=== PATIENT | male | born 1950 | race Caucasian/White ===

== ENCOUNTER 2023-10-18 14:21 | Outpatient (CLI) | payer MEDICARE, SELFPAY | END 2023-10-18 14:22 | disposition home or self-care (01) | PROVIDERS: PCP Internal Medicine; Visit Provider Internal Medicine | DX: N18.4 Chronic kidney disease, stage 4 (severe) (principal); D63.1 Anemia in chronic kidney disease | CPT/HCPCS: 82607; 82728; 83540 ==

== ENCOUNTER 2023-10-31 09:10 | Outpatient (CLI) | payer MEDICARE, SELFPAY | END 2023-10-31 09:11 | disposition home or self-care (01) | LOC: NFLDREF 12:12 | PROVIDERS: PCP Internal Medicine; Referring Provider Internal Medicine; Visit Provider Internal Medicine Nephrology | DX: N18.4 Chronic kidney disease, stage 4 (severe) (principal); D63.8 Anemia in other chronic diseases classified elsewhere; I10 Essential (primary) hypertension; R06.02 Shortness of breath | CPT/HCPCS: 80069; 82728; 82784; 83520; 83540; 83550; 84155; 84165; 84450; 84460; 86334 ==

== ENCOUNTER 2023-11-02 10:00 | Outpatient (CLI) | payer MEDICARE, SELFPAY | END 2023-11-02 10:01 | disposition home or self-care (01) | LOC: NFLDREF 11-04 07:09 | PROVIDERS: PCP Internal Medicine; Referring Provider Internal Medicine; Visit Provider Internal Medicine Nephrology | DX: N18.4 Chronic kidney disease, stage 4 (severe) (principal) | CPT/HCPCS: 82570; 84156 ==

== ENCOUNTER 2023-11-08 13:48 | Inpatient (IN) | payer MEDICARE, SELFPAY ==
[2023-11-08] VITALS (21 sets, daily range): BP systolic 139–158; BP diastolic 86–94; PULSE 96–108; RESP 18–20; TEMP 36.4–37.2; O2SAT 94–97; BMI 28.1; BMI 29.5
--- NOTE | 2023-11-08 14:47 | ED.GENADULT ---
HPI - General Adult General Date Seen: 11/08/23 Chief complaint: Shortness of Breath/Dyspnea Stated complaint: Dr Villalobos worried abt breath during kidneycheck Time Seen by Provider: 11/08/23 14:35 History of Present Illness HPI narrative: This is a pleasant 73-year-old gentleman accompanied to the ER today by his for. He is referred from the outpatient ultrasound suite for evaluation of shortness of breath, fluid overload with bilateral pleural effusions and ascites on ultrasound. He has a complex past history. He has a history of atrial fibrillation and is on chronic warfarin for that. He has also had aortic stenosis and bicuspid aortic valve so underwent a aortic valve surgery with replacement by mechanical valve done at [facility] in September. He is now on warfarin with a goal between 2.5 and 3.5. INR is have recently been in the therapeutic stone, 3.6, than 3.2. He also had a bypass surgery done during his open heart surgery and an ablation for his AFib all during the same procedure in September at [place]. He also has chronic kidney disease. It sounds like his baseline creatinine is about 1.6 and was up to about 2.3 in the hospital at [facility]. Recently is 2.0 in clinic. He also has a history of hyperlipidemia, type 2 diabetes, anemia of chronic disease, restless legs syndrome, BPH, knee pain, hypertension, previous stroke in the left lateral basal ganglia years ago. Has been struggling since he had his heart surgery at [place] in September. He recently moved from [place] to be in this area. He just establish care with primary care clinic here in [place] on October 18, about 3 weeks ago. Details from their notes are below. From clinic note 10/18- HISTORY OF PRESENT ILLNESS: David, a 73 year-old man, is a new patient for me today. He is transferring from [facility]. 1. History of stroke (2018). 2. Right hemiparesis due to stroke. 3. Essential hypertension. 4. Chronic kidney stage 4. 5. Diabetes type 2. 6. Diabetic microalbuminuria. 7. Hyperlipidemia. He has left lateral basal ganglia infarct stroke 04/2019. He has been left with right sided weakness, especially toe drag. He is using a walker since 09/2023 heart surgery. He has never seen a distribution operation supervisor but has stage 4 chronic kidney disease (Cr outside 1.66 as baseline). Most recent Creatinine at [facility] 10/01/23 was 2.3. They were told he needs a distribution operation supervisor. There is diabetes type 2 since 2012, and he has diabetic microalbuminuria. He is on metformin. He also has hyperlipidemia and is on atorvastatin. 8. Benign prostate hypertrophy. His outside records indicate he is on finasteride and tamsulosin, which is going well. 9. History of aortic valve replacement surgery (mechanical valve). 10. Coronary artery disease. 11. History of CABG. 12. Paroxysmal atrial fibrillation. 13. half-way anticoagulation on warfarin. He had major open heart surgery at [facility] 09/19/23, s/p CABG x1 and aortic valve replacement, MAZE, L atrial appendage amputation. He has cardiology follow-up at [facility]. He has had atrial fibrillation in the past, since 2019 stroke, but hadn't been on warfarin or any anticoagulant. 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 He does not know his upcoming cardiology visit. He will now be on warfarin life-long due to a mechanical aortic valve. He is on cardiac rehabilitation in [place] 3x weekly. He has been getting INRs in [place] because he is doing cardiac rehab there. His last INR was [id number] but it appears that was a fingerstick only and there was no serum recheck. 14. Anemia of chronic disease. 15. Iron deficiency anemia. 16. Acute anemia due to acute blood loss. He states he has anemia of chronic disease and feels like his baseline hemoglobin before surgery was 8-9. His seen called records from August 04 indicate chronic anemia related to iron deficiency anemia. It does not appear that there has been much evaluation that I can see, but I do not really know. It appears that he is on chronic iron as a result. He received 3 total units of PRBCs for hemoglobin while admitted to [facility]. Hemoglobin 3 weeks ago was in the 9s. Cardiac rehab sent him over to [place] for being pale more than 2 weeks ago, but labs were improving, so he left the ED. He was on iron. 17. Pedal edema. The hospital placed him on furosemide for leg swelling. Since he has had no improvement the furosemide and is unwilling to wear compression stockings, I think he can simply ride this out try to elevate his legs and do more. He has been following with Dr. Love, a distribution operation supervisor from the [facility] who comes to [place] occasionally. Because of his chronic kidney injury she ordered outpatient renal ultrasound. He came today for that ultrasound but could not lay down due to shortness of breath to complete the ultrasound so was referred her to the ER. He and his note that he has been short of breath and had new peripheral edema affecting both of his legs ever since he had his surgery. It has been getting steadily worse over the past few weeks. He had been on Lasix 20 mg per day postoperative and a couple of weeks ago they increase that up to 40 mg a day but despite that he is retaining more fluid. He has also had a cough for the past several weeks that is productive sometimes of sputum. He is increasingly short of breath. He has been having trouble sleeping due to the cough. He tends to breathe better when he sleeps on his left side but worse when he sleeps on his right. He has also had increasing bilateral lower extremity peripheral edema. He does not want to wear compression stockings. Edema has been symmetric. His INR has been therapeutic for the past couple of checks. He has not been febrile. No known exposure to anyone with any significant illness such as COVID. He is not having any chest pain. Says he just came to the hospital today for his previously ordered outpatient renal ultrasound. He was very short of breath during the ultrasound so the premises technician called his distribution operation supervisor. His distribution operation supervisor told the patient come to the ER. He was initially reluctant come over but then his convinced him so he presented here today. He is not having any chest pain. His symptoms are not acutely worse but they have been slowly progressing for the past few weeks, despite outpatient medications. Related Data Home Medications Medication Instructions Recorded Confirmed aspirin 81 mg chewable tablet 81 mg PO DAILY 10/18/23 11/08/23 atorvastatin 80 mg tablet 80 mg PO DAILY 10/18/23 11/08/23 cholecalciferol (vitamin D3) 2,000 unit PO DAILY 10/18/23 11/08/23 ferrous sulfate 325 mg (65 mg 325 mg PO QAM 10/18/23 11/08/23 iron) tablet finasteride 5 mg tablet 5 mg PO DAILY 10/18/23 11/08/23 mecobalamin (vitamin B12) PO DAILY 10/18/23 10/31/23 ropinirole 0.5 mg tablet 0.5 mg PO 3XD 10/18/23 10/31/23 tamsulosin 0.4 mg capsule 0.4 mg PO DAILY 10/18/23 11/08/23 warfarin 1 mg tablet 2 mg PO QHS 10/18/23 11/08/23 Previous Rx's Medication Instructions Recorded glipizide 2.5 mg tablet, extended 2.5 mg PO DAILY #90 tabs 11/06/23 release 24 hr Allergies Allergy/AdvReac Type Severity Reaction Status Date / Time No Known Drug Allergies Allergy Verified 11/08/23 13:54 PFSH [facility] Medical History Pleural effusion ?J90 - Pleural effusion, not elsewhere classified (ICD-10) CHF (congestive heart failure) ?I50.9 - Heart failure, unspecified (ICD-10) Chronic anticoagulation ?Z79.01 - intermediate project manager (current) use of anticoagulants (ICD-10) Chronic kidney disease, stage 4 (severe) ?N18.4 - Chronic kidney disease, stage 4 (severe) (ICD-10) Hyperlipidemia ?E78.5 - Hyperlipidemia, unspecified (ICD-10) Type 2 diabetes mellitus ?E11.9 - Type 2 diabetes mellitus without complications (ICD-10) Anemia of chronic disease ?D63.8 - Anemia in other chronic diseases classified elsewhere (ICD-10) Paroxysmal atrial fibrillation ?I48.0 - Paroxysmal atrial fibrillation (ICD-10) CAD (coronary artery disease) ?I25.10 - Atherosclerotic heart disease of [place] coronary artery without angina pectoris (ICD-10) Chronic pain of right knee ?M25.561 - Pain in right knee (ICD-10) ?G89.29 - Other chronic pain (ICD-10) RLS (restless legs syndrome) ?G25.81 - Restless legs syndrome (ICD-10) BPH (benign prostatic hyperplasia) ?N40.0 - Benign prostatic hyperplasia without lower urinary tract symptoms (ICD-10) Essential hypertension ?I10 - Essential (primary) hypertension (ICD-10) Chronic right shoulder pain ?M25.511 - Pain in right shoulder (ICD-10) ?G89.29 - Other chronic pain (ICD-10) History of CVA (cerebrovascular accident) ?Z86.73 - Personal history of transient ischemic attack (TIA), and cerebral infarction without residual deficits (ICD-10) Surgical History History of aortic valve replacement ?Z95.2 - Presence of prosthetic heart valve (ICD-10) History of coronary artery bypass graft x 1 ?Z95.1 - Presence of aortocoronary bypass graft (ICD-10) History of colonoscopy ?Z98.890 - Other specified postprocedural states (ICD-10) History of skin cancer ?Z85.828 - Personal history of other malignant neoplasm of skin (ICD-10) Family History Son Aortic valve replaced Bicuspid aortic valve Brother Alzheimers disease Daughter Bicuspid aortic valve Maternal Grandfather Diabetes Myocardial infarction Heart disease Father Heart disease Mother Lymphoma Paternal Grandfather Prostate cancer Social History What is your current living situation?: I presently have a place to live Problems where you live: no known problems Problems where you live details: None In the past 12 months, utilities in danger of being shut off: no In past 12 months, lack of transportation kept you from medical appts, meetings, work, or getting things needed for daily living: no In the past 12 mos, have been you worried that your food would run out before you had money to buy more?: never true In the past 12 mos, the food you bought just didn't last and you didn't have money to buy more?: never true Highest level of school completed/degree received: some college, no degree Smoking Status: Never smoker How often do you have a drink containing alcohol: never AUDIT-C Alcohol total score: 0 Non-prescribed substance use: denies use Caffeine: Yes (1 cup a day) How often does anyone, including family, friends and others, physically hurt you: never How often does anyone, including family, friends and others, insult or talk down to you: never How often does anyone, including family, friends and others, threaten you with harm: never How often does anyone, including family, friends and others, scream or curse at you: never service: No Exam Const: Vital Signs, click to edit/add: Vital Signs - 24 hr 11/08/23 13:55 11/08/23 14:35 11/08/23 14:45 Temperature 98.2 F Pulse Rate 101 H Pulse Rate [Pulse Oximeter] 106 H Respiratory Rate 18 Blood Pressure 139/87 Blood Pressure [Ri ght Upper Arm] 158/86 H Pulse Oximetry 96 97 95 Oxygen Delivery Me thod Room Air 11/08/23 14:47 11/08/23 15:01 11/08/23 15:16 Temperature Pulse Rate 101 H 103 H 105 H Pulse Rate [Pulse Oximeter] Respiratory Rate Blood Pressure Blood Pressure [Ri ght Upper Arm] Pulse Oximetry 95 96 95 Oxygen Delivery Me thod 11/08/23 15:30 11/08/23 15:45 11/08/23 16:00 Temperature Pulse Rate 101 H 101 H 101 H Pulse Rate [Pulse Oximeter] Respiratory Rate Blood Pressure Blood Pressure [Ri ght Upper Arm] Pulse Oximetry 96 94 95 Oxygen Delivery Me thod 11/08/23 16:15 11/08/23 16:30 11/08/23 16:45 Temperature Pulse Rate 101 H 101 H 102 H Pulse Rate [Pulse Oximeter] Respiratory Rate Blood Pressure Blood Pressure [Ri ght Upper Arm] Pulse Oximetry 96 96 95 Oxygen Delivery Me thod 11/08/23 17:00 11/08/23 17:15 11/08/23 17:30 Temperature Pulse Rate 98 97 100 Pulse Rate [Pulse Oximeter] Respiratory Rate Blood Pressure Blood Pressure [Ri ght Upper Arm] Pulse Oximetry 96 96 96 Oxygen Delivery Me thod 11/08/23 17:48 11/08/23 18:00 Temperature Pulse Rate 100 104 H Pulse Rate [Pulse Oximeter] Respiratory Rate Blood Pressure Blood Pressure [Ri ght Upper Arm] Pulse Oximetry 96 97 Oxygen Delivery Me thod Course Vital Signs Vital signs: Initial Vital Signs Temperature 98.2 F 11/08/23 13:55 Temperature Source Temporal Artery Scan 11/08/23 13:55 Pulse Rate 106 H 11/08/23 13:55 Respiratory Rate 18 11/08/23 13:55 Blood Pressure 158/86 H 11/08/23 13:55 Blood Pressure Mean 110 H 11/08/23 13:55 Blood Pressure Position Sitting 11/08/23 13:55 Pulse Oximetry 96 11/08/23 13:55 Oxygen Delivery Method Room Air 11/08/23 13:55 Vital Signs Temperature 98.2 F 11/08/23 13:55 Pulse Rate 106 H 11/08/23 13:55 Respiratory Rate 18 11/08/23 13:55 Blood Pressure 158/86 H 11/08/23 13:55 Pulse Oximetry 96 11/08/23 13:55 Oxygen Delivery Method Room Air 11/08/23 13:55 Temperature 97.6 F 11/08/23 18:31 Pulse Rate 104 H 11/08/23 18:31 Respiratory Rate 20 11/08/23 18:48 Blood Pressure 157/90 H 11/08/23 18:31 Pulse Oximetry 97 11/08/23 18:48 Oxygen Delivery Method Room Air 11/08/23 18:48 Medications Administered Medications: Discontinued Medications Generic Name Dose Route Start Last Admin Trade Name Freq PRN Reason Stop Dose Admin Furosemide 80 mg 11/08/23 17:05 11/08/23 17:27 Furosemide 10 Mg/Ml Inj IVP 11/08/23 17:06 80 mg ONCE ONE Administration Medical Decision Making [facility] Narrative Medical decision making narrative: Very pleasant 73-year-old gentleman with a very complex past cardiac history presenting to the ER today from the outpatient ultrasound suite for worsening difficulty breathing and peripheral edema. Presentation here is consistent with congestive heart failure. He has been worsening despite outpatient diuretics with furosemide. He does have pleural effusions and pulmonary edema on chest x-ray, elevated BNP. Discussed with Cardiology from [place], Dr. Barba CAD. He agrees with the plan to admit for IV diuresis. Patient will likely benefit from higher dose diuretics. At the same time he has pre-existing chronic kidney disease and has worse for acute kidney injury is over diuresed. Therefore hospitalization for monitor diuresis is clearly necessary. Differential for shortness of breath is broad. At this point there is no evidence for ACS and troponin is negative. Chest x-ray negative for pneumothorax. No obvious pneumonia. With cough ongoing for over a month, unlikely to represent viral illness such as COVID. Consider possible PE but he has been therapeutically anticoagulated with an INR between 2 and 3.6 for the past month. He does not have any asymmetric lower extremity edema to suggest DVT. At this point I feel that the risk of contrast nephropathy associated with CT PA would outweigh the unlikely benefit of discovering a unexpected PE. Discussed with the patient and his recommendations from Cardiology. They agree with our plan to admit here for IV diuresis and echo tomorrow. Initial dose of Lasix 80 mg administered here in the ER. He may require transfer to [facility] if he fails to respond to diuresis here in [place] over the next 24-48 hour. Discussed possible transfer to [place] at this time, unfortunately male does not currently have any open beds. Therefore we will admit here to initiate treatment. If he responds, transfer may not ultimately be necessary. Lab Data Labs: Lab Results 11/08/23 Range/Units 14:43 WBC 7.15 (4.50-11.00) K/uL RBC 3.57 L (4.30-5.90) m/uL Hgb 10.1 L (13.5-17.5) gm/dL Hct 33.7 L (37.0-53.0) % MCV 94 (80-100) fL MCH 28 (26-34) pg MCHC 30 L (32-36) gm/dL RDW Coeff of Mila 14.3 (11.5-15.5) % Plt Count 267 (140-440) K/uL Neut % (Auto) 76.9 H (42.0-72.0) % Lymph % (Auto) 12.0 L (20-44) % [place] % (Auto) 8.7 (0.0-11.0) % Eos % (Auto) 1.3 (0.0-7.0) % Baso % (Auto) 0.3 (0.0-3.0) % Neut # (Auto) 5.50 (1.7-7.0) K/uL Lymph # (Auto) 0.90 (0.90-2.90) K/uL [place] # (Auto) 0.60 (0.00-0.90) K/UL Eos # (Auto) 0.09 (0.00-0.50) K/uL Baso # (Auto) 0.02 (0.00-0.30) K/uL Abs Immat Gran (auto) 0.06 (0.00-0.30) K/uL Imm/Tot Granulo (auto) 0.8 % INR 2.20 H (0.91-1.10) Sodium 140 (135-149) mmol/L Potassium 4.2 (3.6-5.1) mmol/L Chloride 103 (96-114) mmol/L Carbon Dioxide 26 (20-32) mmol/L Anion Gap 11 (7-15) mEq/L BUN 25 (7-30) mg/dL Creatinine 2.0 H (0.5-1.5) mg/dL Estimated Creat Clear 33.88 Estimated GFR 35 ml/min Glucose 147 H (60-115) mg/dL Lactate 2.0 H (0.5-1.9) mmol/L Calcium 8.8 (8.4-10.6) mg/dL Total Bilirubin 0.7 (0.1-1.5) mg/dL AST 26 (12-35) U/L ALT 31 (4-50) U/L Alkaline Phosphatase 106 (40-150) U/L Troponin I < 0.01 L (0.01-0.04) ng/mL C-Reactive Protein 2.8 H (0.5-1.0) mg/dL NT-Pro-B Natriuret Pep 5220 pg/mL Total Protein 7.1 (6.0-8.3) g/dL Albumin 3.7 (3.3-5.0) g/dL Imaging Data Chest x-ray: Attestation: I have reviewed the pertinent imaging results. Radiologist's impression: Impression: Unchanged left greater than right basilar pleural effusions with adjacent compressive atelectasis versus infiltrates. ECG Data Attestation: I personally reviewed and interpreted this ECG as follows: Interpretation: Sinus tachycardia. Rate 103 MN 134 QRS axis normal axis. ST segment/T wave: No ST segment elevation or depression. Nonspecific T-wave flattening. QTc: 445 Discharge Plan Discharge Clinical Impression: CHF (congestive heart failure), Chronic kidney disease, Pleural effusion Patient Disposition: Admitted As Observation
--- NOTE | 2023-11-08 15:09 | CRLHL7_ITS ---
For Patients: As a result of the Century Cures Act, medical imaging exams and procedure reports are released immediately into your electronic medical record. You may view this report before your referring provider. If you have questions, please contact your health care provider. Indication: Dyspnea, peripheral edema, diminished in the left lung base Comparison: Two-view chest October 31, 2023 Technique: PA and lateral views of the chest Findings: Left greater than right basilar pleural effusion with adjacent compressive atelectasis versus infiltrates similar to previous exam. There is no pneumothorax. The cardiac silhouette is mildly prominent with median sternotomy wires. The bony thorax is grossly intact. Impression: Unchanged left greater than right basilar pleural effusions with adjacent compressive atelectasis versus infiltrates. Dictated by Adolph Good MD @ 11/08/2023 4:34:19 PM (Electronically Signed)
[2023-11-08 15:20] LABS: Basophils Absolute Auto 0.02 K/uL (0.00-0.30); Basophils Percent Auto 0.3 % (0.0-3.0); Eosinophils Absolute Auto 0.09 K/uL (0.00-0.50); Eosinophils Percent Auto 1.3 % (0.0-7.0); Hematocrit 33.7 % (37.0-53.0); Hemoglobin* 10.1 gm/dL (13.5-17.5); Immature Granulocytes Abs Auto 0.06 K/uL (0.00-0.30); Immature Granulocytes Pct Auto 0.8 %; Mean Corpuscular HGB Conc 30 gm/dL (32-36); Mean Corpuscular Hemoglobin 28 pg (26-34); Mean Corpuscular Volume 94 fL (80-100); Monocytes Percent Auto 8.7 % (0.0-11.0); Neutrophils Percent Auto 76.9 % (42.0-72.0); Platelet Count* 267 K/uL (140-440); RDW Coefficient of Variation % 14.3 % (11.5-15.5); Red Blood Count 3.57 m/uL (4.30-5.90); White Blood Count* 7.15 K/uL (4.50-11.00)
[2023-11-08 15:32] LABS: Albumin* 3.7 g/dL (3.3-5.0); Slide Review Reflex No
[2023-11-08 15:33] LABS: Chloride* 103 mmol/L (96-114); Potassium* 4.2 mmol/L (3.6-5.1); Sodium* 140 mmol/L (135-149)
[2023-11-08 15:35] LABS: Bilirubin Total* 0.7 mg/dL (0.1-1.5); Est. Creatinine Clearance* 33.88; Estimated Glomerular Filt Rate 35 ml/min
[2023-11-08 15:36] LABS: Alanine Aminotransferase* 31 U/L (4-50); Alkaline Phosphatase* 106 U/L (40-150); Anion Gap 11 mEq/L (7-15); Aspartate Amino Transferase* 26 U/L (12-35); Blood Urea Nitrogen* 25 mg/dL (7-30); Carbon Dioxide* 26 mmol/L (20-32); Glucose* 147 mg/dL (60-115); Total Protein* 7.1 g/dL (6.0-8.3)
[2023-11-08 15:37] LABS: Calcium* 8.8 mg/dL (8.4-10.6); Prothrombin Time 26.1 Seconds
[2023-11-08 15:39] LABS: C Reactive Protein* 2.8 mg/dL (0.5-1.0)
[2023-11-08 16:01] LABS: NT Pro B Type NatriureticPept* 5220 pg/mL; Troponin I* < 0.01 ng/mL (0.01-0.04)
[2023-11-08] MEDS: FUROSEMIDE 10 MG/ML inj 80 MG IVP (17:27)
[2023-11-08 18:28] LABS: PCR FLU A Negative PCR FLU A (Negative); PCR FLU B Negative PCR FLU B (Negative)
--- NOTE | 2023-11-08 18:33 | PM.IMHP1 ---
Hospitalist- H&P: HPI History of Present Illness Date Seen: 11/08/23 Chief complaint: Dr Villalobos worried abt breath during kidneycheck Narrative: Jong Harris is a 73 year old male past medical history significant for diabetes mellitus type 2, hypertension not currently on antihypertensive, hyperlipidemia, BPH, RLS, CVA 2019, CAD, anemia of chronic disease, CKD stage III-IV, CHF, atrial fibrillation status post Maze, severe aortic stenosis, status post mechanical valve replacement, status post CABG is admitted to the medical floor from the ED for further management fluid overload. Patient is seen at bedside with his and adult children. He and his recently moved to the [facility] from [place] to be closer to family. He tells me he was in for routine physical in July when he was told he had a murmur. Prior to that exam he reports he was never told he had a murmur but they did find documentation of this in his records when the family was reviewing them. He was referred to [facility] for further workup and ended up undergoing a CABG, Maze, left atrial appendage ligation, mechanical AVR on 09/19/2023 at [facility] and was discharged on 09/26/2023. Since discharge, he reports a new dry cough previously not present prior to surgery. Cough is worse with speaking. He has noticed fluid buildup, initially in his lower extremities, worsening and extending into his thighs and his upper extremities. His belly has been distended. He was taking 20 mg of Lasix which was increased to 40 mg over the course of the last 20 days without relief of his symptoms. He reports dyspnea on exertion previously not a problem for him. He worked for [employer] prior to surgery without any symptoms. He has also developed orthopnea postoperatively and was unable to lie flat for the complete renal Doppler ultrasound today. He has not yet had a postsurgical follow-up with [facility] since discharge from the hospital. Patient otherwise denies headache. Does have intermittent episodes of dizziness which resolve on their own. Denies chest pain. Complains of shortness of breath at rest, with exertion, and with lying flat. He has a dry cough. No recent fevers, chills, sweats. Denies abdominal pain but does have distention. Denies nausea, vomiting, diarrhea. Since stopping metformin prior to surgery he now feels constipated. ED provider discussed findings with Dr. Soto, [facility], recommending local hospitalization for diuresis. Consider transfer if new or worsening symptoms or no improvement. Review of Systems Narrative: REVIEW OF SYSTEMS: Complete review of systems performed and negative unless otherwise stated in HPI or below. 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 (ICD-10) Chronic kidney disease, stage 4 (severe) ?N18.4 - Chronic kidney disease, stage 4 (severe) (ICD-10) Hyperlipidemia ?E78.5 - Hyperlipidemia, unspecified (ICD-10) Type 2 diabetes mellitus ?E11.9 - Type 2 diabetes mellitus without complications (ICD-10) Anemia of chronic disease ?D63.8 - Anemia in other chronic diseases classified elsewhere (ICD-10) Paroxysmal atrial fibrillation ?I48.0 - Paroxysmal atrial fibrillation (ICD-10) CAD (coronary artery disease) ?I25.10 - Atherosclerotic heart disease of [place] coronary artery without angina pectoris (ICD-10) Chronic pain of right knee ?M25.561 - Pain in right knee (ICD-10) ?G89.29 - Other chronic pain (ICD-10) RLS (restless legs syndrome) ?G25.81 - Restless legs syndrome (ICD-10) BPH (benign prostatic hyperplasia) ?N40.0 - Benign prostatic hyperplasia without lower urinary tract symptoms (ICD-10) Essential hypertension ?I10 - Essential (primary) hypertension (ICD-10) Chronic right shoulder pain ?M25.511 - Pain in right shoulder (ICD-10) ?G89.29 - Other chronic pain (ICD-10) History of CVA (cerebrovascular accident) ?Z86.73 - Personal history of transient ischemic attack (TIA), and cerebral infarction without residual deficits (ICD-10) Surgical History History of aortic valve replacement ?Z95.2 - Presence of prosthetic heart valve (ICD-10) History of coronary artery bypass graft x 1 ?Z95.1 - Presence of aortocoronary bypass graft (ICD-10) History of colonoscopy ?Z98.890 - Other specified postprocedural states (ICD-10) History of skin cancer ?Z85.828 - Personal history of other malignant neoplasm of skin (ICD-10) Family History Son Aortic valve replaced Bicuspid aortic valve Brother Alzheimers disease Daughter Bicuspid aortic valve Maternal Grandfather Diabetes Myocardial infarction Heart disease Father Heart disease Mother Lymphoma Paternal Grandfather Prostate cancer Social History What is your current living situation?: I presently have a place to live Problems where you live: no known problems Problems where you live details: None In the past 12 months, utilities in danger of being shut off: no In past 12 months, lack of transportation kept you from medical appts, meetings, work, or getting things needed for daily living: no In the past 12 mos, have been you worried that your food would run out before you had money to buy more?: never true In the past 12 mos, the food you bought just didn't last and you didn't have money to buy more?: never true Highest level of school completed/degree received: some college, no degree Smoking Status: Never smoker How often do you have a drink containing alcohol: never AUDIT-C Alcohol total score: 0 Non-prescribed substance use: denies use Caffeine: Yes (1 cup a day) How often does anyone, including family, friends and others, physically hurt you: never How often does anyone, including family, friends and others, insult or talk down to you: never How often does anyone, including family, friends and others, threaten you with harm: never How often does anyone, including family, friends and others, scream or curse at you: never service: No Meds Home Medications and Allergies Home Medications Medication Instructions Recorded Confirmed Type aspirin 81 mg chewable tablet 81 mg PO DAILY 10/18/23 11/08/23 History atorvastatin 80 mg tablet 80 mg PO DAILY 10/18/23 11/08/23 History cholecalciferol (vitamin D3) 2,000 unit PO DAILY 10/18/23 11/08/23 History ferrous sulfate 325 mg (65 mg 325 mg PO QAM 10/18/23 11/08/23 History iron) tablet finasteride 5 mg tablet 5 mg PO DAILY 10/18/23 11/08/23 History mecobalamin (vitamin B12) PO DAILY 10/18/23 10/31/23 History ropinirole 0.5 mg tablet 0.5 mg PO 3XD 10/18/23 10/31/23 History tamsulosin 0.4 mg capsule 0.4 mg PO DAILY 10/18/23 11/08/23 History warfarin 1 mg tablet 2 mg PO QHS 10/18/23 11/08/23 History Allergies Allergy/AdvReac Type Severity Reaction Status Date / Time No Known Drug Allergies Allergy Verified 11/08/23 13:54 Exam Narrative: Exam Narrative: PHYSICAL EXAM General: Pleasant, conversant, NAD HEENT: Normocephalic, atraumatic, sclera white, EOMI, oral mucosa moist Cardiovascular: RRR, S1S2. +3 pitting edema bilateral lower extremities Pulmonary: Diminished bilaterally without rhonchi, rales, expiratory wheezes. Mild dyspnea with speaking, halting speech Abdominal: Mildly distended distended, NTTP, no guarding Neurological: Alert, answering questions appropriately, cranial nerves intact, no focal findings Extremities: Edema bilateral lower extremities, swelling of bilateral upper extremities. Neurovascularly intact Skin: Warm, dry. Const: Vital Signs, click to edit/add: Vital Signs - 24 hr 11/08/23 13:55 11/08/23 14:35 11/08/23 14:45 Temperature 98.2 F Pulse Rate 101 H Pulse Rate [Pulse Oximeter] 106 H Respiratory Rate 18 Blood Pressure 139/87 Blood Pressure [Ri ght Upper Arm] 158/86 H Pulse Oximetry 96 97 95 Oxygen Delivery Me thod Room Air 11/08/23 14:47 11/08/23 15:01 11/08/23 15:16 Temperature Pulse Rate 101 H 103 H 105 H Pulse Rate [Pulse Oximeter] Respiratory Rate Blood Pressure Blood Pressure [Ri ght Upper Arm] Pulse Oximetry 95 96 95 Oxygen Delivery Me thod 11/08/23 15:30 11/08/23 15:45 11/08/23 16:00 Temperature Pulse Rate 101 H 101 H 101 H Pulse Rate [Pulse Oximeter] Respiratory Rate Blood Pressure Blood Pressure [Ri ght Upper Arm] Pulse Oximetry 96 94 95 Oxygen Delivery Me thod 11/08/23 16:15 11/08/23 16:30 11/08/23 16:45 Temperature Pulse Rate 101 H 101 H 102 H Pulse Rate [Pulse Oximeter] Respiratory Rate Blood Pressure Blood Pressure [Ri ght Upper Arm] Pulse Oximetry 96 96 95 Oxygen Delivery Me thod 11/08/23 17:00 11/08/23 17:15 11/08/23 17:30 Temperature Pulse Rate 98 97 100 Pulse Rate [Pulse Oximeter] Respiratory Rate Blood Pressure Blood Pressure [Ri ght Upper Arm] Pulse Oximetry 96 96 96 Oxygen Delivery Me thod 11/08/23 17:48 11/08/23 18:00 Temperature Pulse Rate 100 104 H Pulse Rate [Pulse Oximeter] Respiratory Rate Blood Pressure Blood Pressure [Ri ght Upper Arm] Pulse Oximetry 96 97 Oxygen Delivery Me thod Hospitalist - H&P: Result Labs Labs: Short CBC 11/08/23 Range/Units 14:43 WBC 7.15 (4.50-11.00) K/uL Hgb 10.1 L (13.5-17.5) gm/dL Hct 33.7 L (37.0-53.0) % Plt Count 267 (140-440) K/uL BMP 11/08/23 14:43 Sodium 140 Potassium 4.2 Chloride 103 Carbon Dioxide 26 BUN 25 Creatinine 2.0 H Glucose 147 H Calcium 8.8 Cardiac Enzymes 11/08/23 Range/Units 14:43 Troponin I < 0.01 L (0.01-0.04) ng/mL Liver Function 11/08/23 Range/Units 14:43 Total Bilirubin 0.7 (0.1-1.5) mg/dL AST 26 (12-35) U/L ALT 31 (4-50) U/L Alkaline Phosphatase 106 (40-150) U/L Albumin 3.7 (3.3-5.0) g/dL ECG Attestation: I personally reviewed and interpreted this ECG as follows: ECG interpretation date: 11/08/23 Interpretation: Sinus tachycardia, ventricular rate 103, QTC 445 Imaging Chest x-ray: Attestation: I have reviewed the pertinent imaging results. Radiologist's impression: PA and lateral views of the chest Findings: Left greater than right basilar pleural effusion with adjacent compressive atelectasis versus infiltrates similar to previous exam. There is no pneumothorax. The cardiac silhouette is mildly prominent with median sternotomy wires. The bony thorax is grossly intact. Impression: Unchanged left greater than right basilar pleural effusions with adjacent compressive atelectasis versus infiltrates. renal us: Attestation: I have reviewed the pertinent imaging results. Radiologist's impression: Ultrasound bilateral renal. Viveros-scale and color Doppler sonographic images were acquired of the kidneys and urinary bladder. COMPARISON: None. FINDINGS: Right kidney: 10 cm. Normal echotexture and cortex. No suspicious masses, stones, or hydronephrosis. Left kidney: 10 cm. Normal echotexture and cortex. No suspicious masses, stones, or hydronephrosis. Ascites is present. IMPRESSION: Unremarkable kidneys. No hydronephrosis. Assessment and Plan Assessment and plan (1) CHF (congestive heart failure): Problem comment: -chronic, acutely worsening post operatively, pleural effusions -cough, GALARZA, orthopnea, peripheral edema, without hypoxia - onset after surgery (previously working for [employer] without symptoms) -echo 08/17/2023 (pre-surgical) shows grade 1/3 left ventricular diastolic dysfunction, EF 67% -BNP on admission 5220, previously 7213 in September -started on Lasix 20 mg daily postoperatively, increased to 40 mg daily approximately 1 week ago - will hold -IV diuresis with Lasix 60 mg b.i.d., strict I&Os, daily weights. May need to adjust Lasix dose, monitoring creatinine -elevate head of bed, Silviano hose bilaterally during day hours -repeat echocardiogram ordered, in setting of worsening symptoms postoperatively -ED provider discussed with [facility], Dr. Soto, recommending local admission, repeat echocardiogram, IV diuresis. No beds available currently, consider transfer if new or worsening symptoms or no improvement. Status: Acute (2) Ascites: Problem comment: -noted on renal ultrasound today. No known previous history. Postsurgical finding. LFTs unremarkable -would expect to improve with diuresis. Continue to monitor Status: Acute (3) Pleural effusion: Problem comment: -unchanged left greater than right basilar pleural effusions with adjacent compressive atelectasis - postsurgical finding -dyspnea on exertion, orthopnea, cough, without hypoxia Status: Acute (4) Paroxysmal atrial fibrillation: Problem comment: -s/p MAZE on 09/19/23. -No longer on metoprolol. -EKG shows sinus tachycardia. 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 Kidneys otherwise unremarkable, no hydronephrosis -avoid nephrotoxic medications, monitor closely in setting of IV diuresis -followed by Dr. Villalobos, [facility] Status: Chronic (8) Hyperlipidemia: Problem comment: -continue statin Status: Chronic (9) Type 2 diabetes mellitus: Problem comment: -diagnosed 2011, A1c 6.4 in July -continue glipizide. Metformin discontinued prior to surgery. -diabetic diet, glucose checks ACHS. Will defer insulin sliding scale at this time, monitoring for need Status: Chronic (10) Anemia of chronic disease: Problem comment: Per patient this has been going on for many years before 11/03. Peripheral smear at [facility] 11/03 revealed acanthocytes, which would be consistent with anemia of iron deficiency as well as anemia of chronic disease -hemoglobin 10.1 on admission, previously 10.3 -has appointment with [facility] in November Status: Chronic (11) CAD (coronary artery disease): Problem comment: Hx CABG x1 and aortic valve replacement 09/19/23 Status: Chronic (12) RLS (restless legs syndrome): Problem comment: On Requip 0.5mg 3x/day as of 05/01/23. Status: Chronic (13) BPH (benign prostatic hyperplasia): Problem comment: on finasteride and tamsulosin Status: Chronic (14) Essential hypertension: Problem comment: -not currently on an antihypertensive Status: Chronic Plan CODE: Full as discussed with patient family VTE PPX: Continue warfarin, pharmacy to dose Disposition: Observation
[2023-11-08 18:36] LABS: SARS PCR* Negative SARS-CoV-2 (Negative)
--- NOTE | 2023-11-08 19:21 | PC.NURSE ---
End of Shift: Patient arrived to the floor about 1824. Patient vitally stable, lungs diminished, BS WNL. Patient with +3 bilateral LE edema. Patient denies pain. Patient with some shortness of breath with exertion. Patient currently ambulating with walker, especially with long distances. Patient urinated during admission and ate dinner, tolerating regular diet. Patient has midline chest cardiac surgical site, and two incisions below midline incision from drainage tubes.
[2023-11-08] MEDS: ROPINIROLE HCL 1 MG TABLET 0.5 MG PO (21:10)
[2023-11-08] MEDS: SODIUM CHLORIDE 0.9 % (FLUSH) 10 ML SYRINGE 5 ML IVF (21:11)
[2023-11-08] MEDS: WARFARIN 2 MG TABLET PO (21:11)
[2023-11-08] MEDS: SENNOSIDES/DOCUSATE TABLET 1 TAB PO (21:11)
[2023-11-08] MEDS: ATORVASTATIN CALCIUM 40 MG TABLET 80 MG PO (21:16)
[2023-11-08] MEDS: TAMSULOSIN HCL 0.4 MG CAPSULE PO (21:17)
--- NOTE | 2023-11-08 23:47 | PC.NURSE ---
End of Shift: Patient pleasant and cooperative. Afebrile. Denies pain. O2 sats greater than 90% on room air. Up to bathroom with SBA. Tele showing sinus tach.
[2023-11-09] VITALS (10 sets, daily range): BP systolic 124–144; BP diastolic 83–94; PULSE 83–111; RESP 16–20; TEMP 36.4–36.9; O2SAT 94–97; BMI 29.1
--- NOTE | 2023-11-09 05:59 | PC.NURSE ---
End of shift [id number]: Pt A&O and afebrile overnight. VSS with exception to tachycardia. TELE overnight read ST ranging from 90s-low 100s bpm. Pt ambulates independently in his room but does call for assistance to remove SCD?s. BLE edema is 3+ from ankles to calves. SCD?s remained in place overnight. Would consider LEATHA wraps over TEDs d/t size of patient?s lower legs. PIV in left AC is SL and C/D/I. Pt had complaints of persistent dry cough overnight. Denies having any pain, nausea or SOB/dizziness. Frequent urination d/t scheduled BID Lasix. Total output overnight 700 mL. spent the night at bedside and is attentive to patient?s cares. ?
[2023-11-09 06:50] LABS: Chloride* 105 mmol/L (96-114); Sodium* 140 mmol/L (135-149)
[2023-11-09 06:51] LABS: Hematocrit 30.2 % (37.0-53.0); Hemoglobin* 9.2 gm/dL (13.5-17.5); Mean Corpuscular HGB Conc 31 gm/dL (32-36); Mean Corpuscular Hemoglobin 29 pg (26-34); Mean Corpuscular Volume 94 fL (80-100); Platelet Count* 214 K/uL (140-440); Red Blood Count 3.23 m/uL (4.30-5.90); White Blood Count* 6.59 K/uL (4.50-11.00)
[2023-11-09 06:53] LABS: Anion Gap 6 mEq/L (7-15); Blood Urea Nitrogen* 28 mg/dL (7-30); Calcium* 8.4 mg/dL (8.4-10.6); Carbon Dioxide* 29 mmol/L (20-32); Est. Creatinine Clearance* 33.88; Estimated Glomerular Filt Rate 35 ml/min; Glucose* 123 mg/dL (60-115)
[2023-11-09 06:55] LABS: Slide Review Reflex No
[2023-11-09 07:07] LABS: NT Pro B Type NatriureticPept* 6240 pg/mL
[2023-11-09] MEDS: SENNOSIDES/DOCUSATE TABLET 1 TAB PO ×2 (08:56→21:13)
[2023-11-09] MEDS: FUROSEMIDE 10 MG/ML inj 60 MG IVP ×2 (08:56→21:12)
[2023-11-09] MEDS: ACETAMINOPHEN 325 MG TABLET PO (08:57)
[2023-11-09] MEDS: FERROUS SULFATE 325 MG TABLET PO (08:58)
[2023-11-09] MEDS: METOPROLOL SUCCINATE (XL) 50 MG TAB PO (08:58)
[2023-11-09] MEDS: ROPINIROLE HCL 1 MG TABLET 0.5 MG PO ×3 (08:58→21:12)
[2023-11-09] MEDS: ASPIRIN 81 MG TAB.CHEW PO (08:58)
[2023-11-09] MEDS: FINASTERIDE 5 MG TABLET PO (08:58)
[2023-11-09] MEDS: SODIUM CHLORIDE 0.9 % (FLUSH) 10 ML SYRINGE 5 ML IVF ×2 (08:59→21:14)
[2023-11-09] MEDS: glipiZIDE 2.5 MG ER TAB PO (09:07)
[2023-11-09 11:11] LABS: INR 2.02 (0.91-1.10); Prothrombin Time 24.3 Seconds
--- NOTE | 2023-11-09 12:50 | PM.IMPN1 ---
Progress Note: A&P Assessment and plan (1) CHF (congestive heart failure): Problem details: -chronic, acutely worsening post operatively, pleural effusions -cough, GALARZA, orthopnea, peripheral edema, without hypoxia - onset after surgery (previously working for [employer] without symptoms) -echo 08/17/2023 (pre-surgical) shows grade 1/3 left ventricular diastolic dysfunction, EF 67% -BNP on admission 5220, previously 7213 in September -started on Lasix 20 mg daily postoperatively, increased to 40 mg daily approximately 1 week ago - will hold -IV diuresis with Lasix 60 mg b.i.d., strict I&Os, daily weights. May need to adjust Lasix dose, monitoring creatinine -elevate head of bed, Silviano hose bilaterally during day hours -repeat echocardiogram ordered, in setting of worsening symptoms postoperatively -ED provider discussed with [facility], Dr. Soto, recommending local admission, repeat echocardiogram, IV diuresis. No beds available currently, consider transfer if new or worsening symptoms or no improvement. 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 No known previous history. Postsurgical finding. LFTs unremarkable -would expect to improve with diuresis. Continue to monitor Status: Acute (3) Pleural effusion: Problem details: -unchanged left greater than right basilar pleural effusions with adjacent compressive atelectasis - postsurgical finding -dyspnea on exertion, orthopnea, cough, without hypoxia Status: Acute (4) Paroxysmal atrial fibrillation: Problem details: -s/p MAZE on 09/19/23. -No longer on metoprolol. -EKG shows sinus tachycardia. 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 Kidneys otherwise unremarkable, no hydronephrosis -avoid nephrotoxic medications, monitor closely in setting of IV diuresis -followed by Dr. Villalobos, [facility] Status: Chronic (8) Hyperlipidemia: Problem details: -continue statin Status: Chronic (9) Type 2 diabetes mellitus: Problem details: -diagnosed 2011, A1c 6.4 in July -continue glipizide. Metformin discontinued prior to surgery. -diabetic diet, glucose checks ACHS. Will defer insulin sliding scale at this time, monitoring for need Status: Chronic (10) Anemia of chronic disease: Problem details: Per patient this has been going on for many years before 11/03. Peripheral smear at [facility] 11/03 revealed acanthocytes, which would be consistent with anemia of iron deficiency as well as anemia of chronic disease -hemoglobin 10.1 on admission, previously 10.3 -has appointment with [facility] in November Status: Chronic (11) CAD (coronary artery disease): Problem details: Hx CABG x1 and aortic valve replacement 09/19/23 Status: Chronic (12) RLS (restless legs syndrome): Problem details: On Requip 0.5mg 3x/day as of 05/01/23. 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 Status: Acute Plan 1. Reviewed impression with patient and . 2. Answered their questions. 3. Continue to proceed as specified above. 4. Continue with daily laboratory studies. 5. Patient and agreeable with above stated plans and recommendations. Time Spent With Patient Total time spent: 45 Minutes Subjective Date Seen: 11/09/23 Interval history: History of present illness: Jong Harris is a 73 year old male past medical history significant for diabetes mellitus type 2, hypertension not currently on antihypertensive, hyperlipidemia, BPH, RLS, CVA 2019, CAD, anemia of chronic disease, CKD stage III-IV, CHF, atrial fibrillation status post Maze, severe aortic stenosis, status post mechanical valve replacement, status post CABG is admitted to the medical floor from the ED for further management fluid overload. Patient is seen at bedside with his and adult children. He and his recently moved to the [facility] from [place] to be closer to family. He tells me he was in for routine physical in July when he was told he had a murmur. Prior to that exam he reports he was never told he had a murmur but they did find documentation of this in his records when the family was reviewing them. He was referred to [facility] for further workup and ended up undergoing a CABG, Maze, left atrial appendage ligation, mechanical AVR on 09/19/2023 at [facility] and was discharged on 09/26/2023. Since discharge, he reports a new dry cough previously not present prior to surgery. Cough is worse with speaking. He has noticed fluid buildup, initially in his lower extremities, worsening and extending into his thighs and his upper extremities. His belly has been distended. He was taking 20 mg of Lasix which was increased to 40 mg over the course of the last 20 days without relief of his symptoms. He reports dyspnea on exertion previously not a problem for him. He worked for [employer] prior to surgery without any symptoms. He has also developed orthopnea postoperatively and was unable to lie flat for the complete renal Doppler ultrasound today. He has not yet had a postsurgical follow-up with [facility] since discharge from the hospital. Patient otherwise denies headache. Does have intermittent episodes of dizziness which resolve on their own. Denies chest pain. Complains of shortness of breath at rest, with exertion, and with lying flat. He has a dry cough. No recent fevers, chills, sweats. Denies abdominal pain but does have distention. Denies nausea, vomiting, diarrhea. Since stopping metformin prior to surgery he now feels constipated. ED provider discussed findings with Dr. Soto, [facility], recommending local hospitalization for diuresis. Consider transfer if new or worsening symptoms or no improvement. Hospital day 2. Breathing is already improving. He notes the diuresing efforts are working. Notes decrease in dependent edema already. Prior to 2 weeks ago he had no edema. Still has some orthopnea but notes improvement. Less dyspnea with exertion. Dry hacky cough is decreasing in frequency and severity. Denies chest heaviness, pressure, tightness, or pain. denies orthostasis, syncope, nausea, vomiting, palpitations, chest fluttering. Denies fevers, rigors, diaphoresis. Denies myalgias or arthralgias. Exam Narrative: Exam Narrative: Examined patient in his hospital room. He is sitting upright in a chair. Appears comfortable and in no acute distress. Intermittent dry hacky cough. Vision and hearing are grossly normal. Alert and oriented to self, place, time, situation. Friendly, articulate, cooperative. While sitting upright he does not have jugular venous distension but does have hepatojugular reflux. Has pitting edema in his feet, shins and calves, thighs, presacral area. Lungs with decreased breath sounds in the bases, left greater than right, otherwise clear to auscultation without wheezing, rhonchi, or rales. Heart tones with regular rhythm, mechanical heart valve sounds noted. Chest sternotomy wound is clean and dry. Abdomen with active bowel sounds, soft, nontender. Independent in transfer, station, and gait. No focal motor neurologic deficit. weight this morning is 89.6 kg compared to 90.7 kg on admission. Const: Vital Signs, click to edit/add: Vital Signs - 24 hr 11/08/23 13:55 11/08/23 14:35 11/08/23 14:45 Temperature 98.2 F Pulse Rate 101 H Pulse Rate [Pulse Oximeter] 106 H Respiratory Rate 18 Blood Pressure 139/87 Blood Pressure [Le ft Arm] Blood Pressure [Ri ght Arm] Blood Pressure [Ri ght Upper Arm] 158/86 H Pulse Oximetry 96 97 95 Oxygen Delivery Me thod Room Air 11/08/23 14:47 11/08/23 15:01 11/08/23 15:16 Temperature Pulse Rate 101 H 103 H 105 H Pulse Rate [Pulse Oximeter] Respiratory Rate Blood Pressure Blood Pressure [Le ft Arm] Blood Pressure [Ri ght Arm] Blood Pressure [Ri ght Upper Arm] Pulse Oximetry 95 96 95 Oxygen Delivery Me thod 11/08/23 15:30 11/08/23 15:45 11/08/23 16:00 Temperature Pulse Rate 101 H 101 H 101 H Pulse Rate [Pulse Oximeter] Respiratory Rate Blood Pressure Blood Pressure [Le ft Arm] Blood Pressure [Ri ght Arm] Blood Pressure [Ri ght Upper Arm] Pulse Oximetry 96 94 95 Oxygen Delivery Me thod 11/08/23 16:15 11/08/23 16:30 11/08/23 16:45 Temperature Pulse Rate 101 H 101 H 102 H Pulse Rate [Pulse Oximeter] Respiratory Rate Blood Pressure Blood Pressure [Le ft Arm] Blood Pressure [Ri ght Arm] Blood Pressure [Ri ght Upper Arm] Pulse Oximetry 96 96 95 Oxygen Delivery Me thod 11/08/23 17:00 11/08/23 17:15 11/08/23 17:30 Temperature Pulse Rate 98 97 100 Pulse Rate [Pulse Oximeter] Respiratory Rate Blood Pressure Blood Pressure [Le ft Arm] Blood Pressure [Ri ght Arm] Blood Pressure [Ri ght Upper Arm] Pulse Oximetry 96 96 96 Oxygen Delivery Me thod 11/08/23 17:48 11/08/23 18:00 11/08/23 18:31 Temperature 97.6 F Pulse Rate 100 104 H Pulse Rate [Pulse Oximeter] 104 H Respiratory Rate 20 Blood Pressure Blood Pressure [Le ft Arm] 157/90 H Blood Pressure [Ri ght Arm] Blood Pressure [Ri ght Upper Arm] Pulse Oximetry 96 97 97 Oxygen Delivery Me thod Room Air 11/08/23 18:48 11/08/23 19:38 11/08/23 19:38 Temperature 98.9 F Pulse Rate 106 H Pulse Rate [Pulse Oximeter] 96 Respiratory Rate 20 20 Blood Pressure Blood Pressure [Le ft Arm] Blood Pressure [Ri ght Arm] 142/94 H Blood Pressure [Ri ght Upper Arm] Pulse Oximetry 97 96 Oxygen Delivery Me thod Room Air Room Air 11/08/23 23:00 11/08/23 23:00 11/08/23 23:00 Temperature 98.6 F Pulse Rate Pulse Rate [Pulse Oximeter] 108 H 108 H Respiratory Rate 20 20 20 Blood Pressure Blood Pressure [Le ft Arm] Blood Pressure [Ri ght Arm] 149/92 H Blood Pressure [Ri ght Upper Arm] Pulse Oximetry 97 97 Oxygen Delivery Me thod Room Air Room Air 11/09/23 02:38 11/09/23 02:46 11/09/23 07:35 Temperature 98.5 F Pulse Rate 104 H 99 Pulse Rate [Pulse Oximeter] 111 H Respiratory Rate 18 Blood Pressure Blood Pressure [Le ft Arm] Blood Pressure [Ri ght Arm] 144/94 H Blood Pressure [Ri ght Upper Arm] Pulse Oximetry 97 Oxygen Delivery Me thod Room Air 11/09/23 07:45 11/09/23 07:45 11/09/23 11:00 Temperature 98.0 F 98.0 F Pulse Rate Pulse Rate [Pulse Oximeter] 97 95 Respiratory Rate 18 18 16 Blood Pressure Blood Pressure [Le ft Arm] Blood Pressure [Ri ght Arm] 130/88 124/84 Blood Pressure [Ri ght Upper Arm] Pulse Oximetry 96 96 97 Oxygen Delivery Me thod Room Air Room Air Room Air Labs Labs: Laboratory Results - last 24 hr 11/08/23 11/08/23 11/09/23 14:43 Unknown 05:41 WBC 7.15 6.59 RBC 3.57 L 3.23 L Hgb 10.1 L 9.2 L Hct 33.7 L 30.2 L MCV 94 94 MCH 28 29 MCHC 30 L 31 L RDW Coeff of Mila 14.3 Plt Count 267 214 Neut % (Auto) 76.9 H Lymph % (Auto) 12.0 L Walton % (Auto) 8.7 Eos % (Auto) 1.3 Baso % (Auto) 0.3 Neut # (Auto) 5.50 Lymph # (Auto) 0.90 Walton # (Auto) 0.60 Eos # (Auto) 0.09 Baso # (Auto) 0.02 Abs Immat Gran (auto) 0.06 Imm/Tot Granulo (auto) 0.8 INR 2.20 H Sodium 140 140 Potassium 4.2 4.0 Chloride 103 105 Carbon Dioxide 26 29 Anion Gap 11 6 L BUN 25 28 Creatinine 2.0 H 2.0 H Estimated Creat Clear 33.88 33.88 Estimated GFR 35 35 Glucose 147 H 123 H Lactate 2.0 H Calcium 8.8 8.4 Magnesium 2.0 Total Bilirubin 0.7 AST 26 ALT 31 Alkaline Phosphatase 106 Troponin I < 0.01 L C-Reactive Protein 2.8 H NT-Pro-B Natriuret Pep 5220 6240 Total Protein 7.1 Albumin 3.7 SARS-CoV-2 (PCR) Negative SARS-CoV-2 Influenza Type A (PCR) Negative PCR FLU A Influenza Type B (PCR) Negative PCR FLU B 11/09/23 10:41 WBC RBC Hgb Hct MCV MCH MCHC RDW Coeff of Mila Plt Count Neut % (Auto) Lymph % (Auto) Walton % (Auto) Eos % (Auto) Baso % (Auto) Neut # (Auto) Lymph # (Auto) Walton # (Auto) Eos # (Auto) Baso # (Auto) Abs Immat Gran (auto) Imm/Tot Granulo (auto) INR 2.02 H Sodium Potassium Chloride Carbon Dioxide Anion Gap BUN Creatinine Estimated Creat Clear Estimated GFR Glucose Lactate Calcium Magnesium Total Bilirubin AST ALT Alkaline Phosphatase Troponin I C-Reactive Protein NT-Pro-B Natriuret Pep Total Protein Albumin SARS-CoV-2 (PCR) Influenza Type A (PCR) Influenza Type B (PCR) Imaging Chest x-ray: Attestation: I have reviewed the pertinent imaging results. Radiologist's impression: I compared the chest x-ray from 10/31/2023 to the x-ray obtained yesterday on 11/08/2023, and these were essentially unchanged. The radiologist report from yesterday's x-ray is as follows: Unchanged left greater than right basilar pleural effusions with adjacent compressive atelectasis versus infiltrates. ECG Attestation: I personally reviewed and interpreted this ECG as follows: Prior ECG tracings: not available for review Interpretation: Admission electrocardiogram demonstrates sinus tachycardia with nonspecific ST-T changes.
[2023-11-09] MEDS: ONDANSETRON 2 MG/ML inj 4 MG IVP (17:17)
[2023-11-09] MEDS: WARFARIN 2 MG TABLET PO (17:17)
--- NOTE | 2023-11-09 19:18 | PC.NURSE ---
Pt alert and oriented. Pt had complaints of headache during shift; see EMAR for intervention. Pt SBA in room. Pt had family at bedside.
[2023-11-09] MEDS: TAMSULOSIN HCL 0.4 MG CAPSULE PO (21:13)
[2023-11-09] MEDS: ATORVASTATIN CALCIUM 40 MG TABLET 80 MG PO (21:13)
[2023-11-10] VITALS (10 sets, daily range): BP systolic 108–136; BP diastolic 7–81; PULSE 82–96; RESP 16–22; TEMP 36.4–36.9; O2SAT 92–96
[2023-11-10 06:39] LABS: Hematocrit 30.3 % (37.0-53.0); Hemoglobin* 9.1 gm/dL (13.5-17.5); Mean Corpuscular HGB Conc 30 gm/dL (32-36); Mean Corpuscular Hemoglobin 28 pg (26-34); Mean Corpuscular Volume 94 fL (80-100); Platelet Count* 221 K/uL (140-440); Red Blood Count 3.24 m/uL (4.30-5.90); White Blood Count* 6.14 K/uL (4.50-11.00)
[2023-11-10 06:46] LABS: Slide Review Reflex No
[2023-11-10 06:55] LABS: Chloride* 104 mmol/L (96-114)
[2023-11-10 06:56] LABS: INR 2.18 (0.91-1.10); Potassium* 4.1 mmol/L (3.6-5.1); Prothrombin Time 25.9 Seconds; Sodium* 140 mmol/L (135-149)
[2023-11-10 06:58] LABS: Creatinine* 2.1 mg/dL (0.5-1.5); Est. Creatinine Clearance* 32.26; Estimated Glomerular Filt Rate 33 ml/min
[2023-11-10 06:59] LABS: Anion Gap 6 mEq/L (7-15); Blood Urea Nitrogen* 29 mg/dL (7-30); Calcium* 8.5 mg/dL (8.4-10.6); Carbon Dioxide* 30 mmol/L (20-32); Glucose* 119 mg/dL (60-115)
[2023-11-10] MEDS: SENNOSIDES/DOCUSATE TABLET 1 TAB PO (08:47)
[2023-11-10] MEDS: FERROUS SULFATE 325 MG TABLET PO (08:47)
[2023-11-10] MEDS: METOPROLOL SUCCINATE (XL) 50 MG TAB PO (08:47)
[2023-11-10] MEDS: ROPINIROLE HCL 1 MG TABLET 0.5 MG PO ×3 (08:47→20:35)
[2023-11-10] MEDS: FINASTERIDE 5 MG TABLET PO (08:47)
[2023-11-10] MEDS: ASPIRIN 81 MG TAB.CHEW PO (08:47)
[2023-11-10] MEDS: glipiZIDE 2.5 MG ER TAB PO (08:49)
[2023-11-10] MEDS: SODIUM CHLORIDE 0.9 % (FLUSH) 10 ML SYRINGE 5 ML IVF ×3 (08:49→20:39)
[2023-11-10] MEDS: FUROSEMIDE 10 MG/ML inj 60 MG IVP (08:50)
--- NOTE | 2023-11-10 12:16 | PM.IMPN1 ---
Progress Note: A&P Assessment and plan (1) CHF (congestive heart failure): Problem details: -chronic, acutely worsening post operatively, pleural effusions -cough, GALARZA, orthopnea, peripheral edema, without hypoxia - onset after surgery (previously working for [employer] without symptoms) -echo 08/17/2023 (pre-surgical) shows grade 1/3 left ventricular diastolic dysfunction, EF 67% -BNP on admission 5220, previously 7213 in September -started on Lasix 20 mg daily postoperatively, increased to 40 mg daily approximately 1 week prior to admission -restarted Metoprolol 11/09 -IV diuresis with Lasix 60 mg BID initiated 11/09, strict I&Os, daily weights -intolerant of Silviano Hose -TTE performed 11/09, awaiting formal Cardiology read -ED provider discussed with [facility], Dr. Soto, on 11/08: recommended admit, TTE, IV diuresis, consider transfer with any decompensation -2 gram sodium diet - nutrition referral ordered Status: Acute (2) Ascites: Problem details: -noted on outpatient renal ultrasound 11/08, no history of this. LFTs unremarkable -would expect to improve with diuresis. Continue to monitor Status: Acute (3) Pleural effusion: Problem details: - noted on admission CXR 11/08 unchanged left greater than right basilar pleural effusions with adjacent compressive atelectasis - dyspnea on exertion, orthopnea, cough, without hypoxia Status: Acute (4) Paroxysmal atrial fibrillation: Problem details: -s/p MAZE on 09/19/23 at [facility] -had been off of Metoprolol post-procedure; restarted 11/09 given evidence of CHF exacerbation and sinus tachycardia -11/08 EKG exhibited sinus tachycardia, which patient has noted over the past 2-3 weeks prior to admission -continue following on telemetry Status: Acute (5) History of aortic valve replacement: Problem details: -s/p mechanical aortic valve replacement at [facility] 10/04 (on life-long warfarin) Status: Acute (6) Chronic anticoagulation: Problem details: -INR goal 2-3, mechanical aortic valve, life-long -pharmacy to manage Coumadin dosing Status: Chronic (7) Chronic kidney disease, stage 4 (severe): Problem details: -creatinine 2.0 on admission 11/08 (appears to be baseline for him) -avoid nephrotoxic medications, monitor closely in setting of IV diuresis -followed by Dr. Villalobos, [facility] Status: Chronic (8) Hyperlipidemia: Problem details: -continue statin Status: Chronic (9) Type 2 diabetes mellitus: Problem details: -diagnosed 2011, A1c 6.4 in July -continue glipizide. Metformin discontinued prior to surgery. -diabetic diet, glucose checks ACHS. Will defer insulin sliding scale at this time, monitoring for need Status: Chronic (10) Anemia of chronic disease: Problem details: -chronic, per patient. Normocytic. 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 He has been diuresing well, weight down 2+kg, + UOP. While he is feeling better, he is still dyspneic while talking for long periods and ambulating. Comorbidities stable: Creatinine 2.1 (baseline) BG 90s-200. Hgb 9.1 (10.1 on admission), no evidence of acute bleeding. Exam Narrative: Exam Narrative: GEN: Alert and oriented, nontoxic, does have 3-4 word dyspnea when speaking for long periods HEENT: Normal external ears, EOMIs bilaterally, no scleral icterus CV: RRR (sinus rhythm during my exam), click heard best at right sternal border R: LCTA bilaterally without concerning wheezing, + rales bilateral bases Ext: 2-3+ edema bilateral lower extremities Skin: No concerning skin lesions or rashes on exposed skin Neuro: No focal deficits, no resting tremor Psych: Appropriate Const: Vital Signs, click to edit/add: Vital Signs - 24 hr 11/09/23 15:15 11/09/23 15:15 11/09/23 15:24 Temperature 97.5 F L Pulse Rate 88 Pulse Rate [Pulse Oximeter] 88 Pulse Rate [orthos tatic lying Left P ulse Oximeter] Pulse Rate [orthos tatic sitting Left Pulse Oximeter] Pulse Rate [orthos tatic standing Lef t Pulse Oximeter] Respiratory Rate 16 16 Blood Pressure [Ri ght Arm] 129/88 Blood Pressure [or thostatic lying Ri ght Arm] Blood Pressure [or thostatic sitting Right Arm] Blood Pressure [or thostatic standing Right Arm] Pulse Oximetry 96 96 Oxygen Delivery Me thod Room Air Room Air 11/09/23 20:52 11/09/23 23:00 11/09/23 23:54 Temperature 98.3 F Pulse Rate 84 Pulse Rate [Pulse Oximeter] 83 Pulse Rate [orthos tatic lying Left P ulse Oximeter] Pulse Rate [orthos tatic sitting Left Pulse Oximeter] Pulse Rate [orthos tatic standing Lef t Pulse Oximeter] Respiratory Rate Blood Pressure [Ri ght Arm] 129/86 Blood Pressure [or thostatic lying Ri ght Arm] Blood Pressure [or thostatic sitting Right Arm] Blood Pressure [or thostatic standing Right Arm] Pulse Oximetry 94 94 Oxygen Delivery Me thod Room Air 11/09/23 23:54 11/10/23 07:00 11/10/23 07:30 Temperature 98.3 F 97.6 F Pulse Rate 88 Pulse Rate [Pulse Oximeter] 85 88 Pulse Rate [orthos tatic lying Left P ulse Oximeter] Pulse Rate [orthos tatic sitting Left Pulse Oximeter] Pulse Rate [orthos tatic standing Lef t Pulse Oximeter] Respiratory Rate 20 22 Blood Pressure [Ri ght Arm] 129/83 108/72 Blood Pressure [or thostatic lying Ri ght Arm] Blood Pressure [or thostatic sitting Right Arm] Blood Pressure [or thostatic standing Right Arm] Pulse Oximetry 94 94 Oxygen Delivery Me thod Room Air Room Air 11/10/23 07:45 11/10/23 08:40 11/10/23 11:43 Temperature 97.6 F Pulse Rate Pulse Rate [Pulse Oximeter] 85 Pulse Rate [orthos tatic lying Left P ulse Oximeter] 93 Pulse Rate [orthos tatic sitting Left Pulse Oximeter] 96 Pulse Rate [orthos tatic standing Lef t Pulse Oximeter] 96 Respiratory Rate 22 16 Blood Pressure [Ri ght Arm] 111/7 L Blood Pressure [or thostatic lying Ri ght Arm] 133/81 Blood Pressure [or thostatic sitting Right Arm] 120/73 Blood Pressure [or thostatic standing Right Arm] 136/73 Pulse Oximetry 94 96 Oxygen Delivery Me thod Room Air Room Air Labs Labs: Laboratory Results - last 24 hr 11/10/23 05:38 WBC 6.14 RBC 3.24 L Hgb 9.1 L Hct 30.3 L MCV 94 MCH 28 MCHC 30 L Plt Count 221 INR 2.18 H Sodium 140 Potassium 4.1 Chloride 104 Carbon Dioxide 30 Anion Gap 6 L BUN 29 Creatinine 2.1 H Estimated Creat Clear 32.26 Estimated GFR 33 Glucose 119 H Calcium 8.5
[2023-11-10] MEDS: ONDANSETRON 2 MG/ML inj 4 MG IVP (12:47)
[2023-11-10] MEDS: FUROSEMIDE 40 MG TABLET 80 MG PO (14:25)
[2023-11-10] MEDS: WARFARIN 2 MG TABLET PO (17:10)
--- NOTE | 2023-11-10 18:24 | PC.NURSE ---
Pt alert and oriented. Pt independent in room. Pt had nausea when eating lunch; see EMAR for intervention. Pt had loose stools in evening. RSV/FLU/Covid test completed. Pt napped through out shift. Pt had BLE edema; no complaints of chest pain or SOB.
[2023-11-10 18:55] LABS: PCR FLU A Negative PCR FLU A (Negative); PCR FLU B Negative PCR FLU B (Negative); PCR RSV Negative PCR RSV (Negative)
[2023-11-10 19:03] LABS: SARS PCR* Negative SARS-CoV-2 (Negative)
[2023-11-10] MEDS: TAMSULOSIN HCL 0.4 MG CAPSULE PO (20:36)
[2023-11-10] MEDS: ATORVASTATIN CALCIUM 40 MG TABLET 80 MG PO (20:36)
[2023-11-11] VITALS (9 sets, daily range): BP systolic 103–120; BP diastolic 71–82; PULSE 79–88; RESP 16–18; TEMP 36.3–36.9; O2SAT 91–96
[2023-11-11 07:03] LABS: Basophils Absolute Auto 0.01 K/uL (0.00-0.30); Basophils Percent Auto 0.2 % (0.0-3.0); Eosinophils Absolute Auto 0.12 K/uL (0.00-0.50); Eosinophils Percent Auto 1.9 % (0.0-7.0); Hematocrit 30.3 % (37.0-53.0); Hemoglobin* 9.1 gm/dL (13.5-17.5); Immature Granulocytes Abs Auto 0.01 K/uL (0.00-0.30); Immature Granulocytes Pct Auto 0.2 %; Lymphocytes Percent Auto 14.5 % (20-44); Mean Corpuscular HGB Conc 30 gm/dL (32-36); Mean Corpuscular Hemoglobin 28 pg (26-34); Mean Corpuscular Volume 94 fL (80-100); Monocytes Percent Auto 10.9 % (0.0-11.0); Neutrophils Percent Auto 72.3 % (42.0-72.0); Platelet Count* 208 K/uL (140-440); RDW Coefficient of Variation % 14.4 % (11.5-15.5); Red Blood Count 3.23 m/uL (4.30-5.90); White Blood Count* 6.41 K/uL (4.50-11.00)
[2023-11-11 07:05] LABS: Slide Review Reflex No
[2023-11-11 07:18] LABS: INR 2.09 (0.91-1.10)
[2023-11-11 07:22] LABS: Albumin* 3.2 g/dL (3.3-5.0); Chloride* 100 mmol/L (96-114); Potassium* 3.8 mmol/L (3.6-5.1); Sodium* 138 mmol/L (135-149)
[2023-11-11 07:24] LABS: Creatinine* 2.3 mg/dL (0.5-1.5); Est. Creatinine Clearance* 29.46; Estimated Glomerular Filt Rate 30 ml/min
[2023-11-11 07:25] LABS: Alanine Aminotransferase* 25 U/L (4-50); Alkaline Phosphatase* 85 U/L (40-150); Anion Gap 7 mEq/L (7-15); Aspartate Amino Transferase* 22 U/L (12-35); Bilirubin Total* 0.3 mg/dL (0.1-1.5); Blood Urea Nitrogen* 30 mg/dL (7-30); Carbon Dioxide* 31 mmol/L (20-32); Glucose* 164 mg/dL (60-115); Total Protein* 6.4 g/dL (6.0-8.3)
[2023-11-11 07:26] LABS: Calcium* 8.3 mg/dL (8.4-10.6)
--- NOTE | 2023-11-11 07:41 | CRLHL7_ITS ---
For Patients: As a result of the Century Cures Act, medical imaging exams and procedure reports are released immediately into your electronic medical record. You may view this report before your referring provider. If you have questions, please contact your health care provider. INDICATION: Follow up pleural effusions TECHNIQUE: Portable AP image of the chest. COMPARISON: 11/08/2023 FINDINGS: Lordotic projection. Lungs low in volume. Grossly unchanged small to moderate left pleural effusion and small right-sided pleural effusion. Heart size stable. Sternal wires and loop recorder, as before. No significant osseous abnormality. IMPRESSION: Grossly unchanged small to moderate left pleural effusion and small right pleural effusion. Dictated by Duc Sadler MD @ 11/11/2023 10:02:05 AM (Electronically Signed)
[2023-11-11] MEDS: SENNOSIDES/DOCUSATE TABLET 1 TAB PO (09:21)
[2023-11-11] MEDS: FERROUS SULFATE 325 MG TABLET PO (09:21)
[2023-11-11] MEDS: FINASTERIDE 5 MG TABLET PO (09:22)
[2023-11-11] MEDS: METOPROLOL SUCCINATE (XL) 50 MG TAB PO (09:22)
[2023-11-11] MEDS: glipiZIDE 2.5 MG ER TAB PO (09:22)
[2023-11-11] MEDS: ROPINIROLE HCL 1 MG TABLET 0.5 MG PO ×3 (09:22→20:33)
[2023-11-11] MEDS: FUROSEMIDE 40 MG TABLET 80 MG PO ×2 (09:22→13:47)
[2023-11-11] MEDS: ASPIRIN 81 MG TAB.CHEW PO (09:22)
--- NOTE | 2023-11-11 09:55 | CRLHL7_ITS ---
For Patients: As a result of the Century Cures Act, medical imaging exams and procedure reports are released immediately into your electronic medical record. You may view this report before your referring provider. If you have questions, please contact your health care provider. INDICATION: KNOWN ASCITES/PLEURAL EFFUSION. CHECK LIVER FOR CIRRHOSIS HISTORY: Ascites and pleural effusion. Evaluate for cirrhosis. COMPARISON: Retroperitoneal ultrasound, 11/08/2023. TECHNIQUE: Ultrasound of the abdomen limited. FINDINGS: The proximal abdominal aorta is normal in caliber, measuring 2.2 cm. Liver morphology is non cirrhotic. It measures 13.1 cm in length. No solid hepatic mass. The right pleural effusion is noted. This could also represent perihepatic ascites. IMPRESSION: 1. Non cirrhotic liver morphology. 2. No solid liver lesion by ultrasound. Dictated by Atif Sorenson MD @ 11/11/2023 12:27:29 PM Dictated by: Atif Sorenson MD @ 11/11/2023 12:27:36 (Electronically Signed)
--- NOTE | 2023-11-11 09:56 | P.IMPN_ITS ---
Progress Note: A&P Assessment and plan (1) CHF (congestive heart failure): Problem details: -chronic, acutely worsening post operatively, pleural effusions -cough, GALARZA, orthopnea, peripheral edema, without hypoxia - onset after surgery (previously working for [employer] without symptoms) -echo 08/17/2023 (pre-surgical) shows grade 1/3 left ventricular diastolic dysfunction, EF 67% -BNP on admission 5220, previously 7213 in September -started on Lasix 20 mg daily postoperatively, increased to 40 mg daily approximately 1 week prior to admission -restarted Metoprolol 11/09 -IV diuresis with Lasix 60 mg BID initiated 11/09, strict I&Os, daily weights -intolerant of Silviano Hose -TTE performed 11/09, formal cardiology read below -ED provider discussed with [facility], Dr. Soto, on 11/08: recommended admit, TTE, IV diuresis, consider transfer with any decompensation -2 gram sodium diet - nutrition referral ordered -reviewed with Dr. Sloan of [facility] 11/11: given reassuring TTE, ascites/pleural effusion likely also related to renal disease -will add Spironolactone to Lasix 11/11, follow renal function, close f/u with both Nephrology and Cardiology as outpatient - TTE obtained 11/09/23: Final Impressions: 1. Normal LV size, normal wall thickness, normal function with an estimated EF of 60 - 65%. 2. Right ventricular cavity size is normal, global systolic RV function is moderately reduced. 3. Mildly enlarged left atrium. 4. The aortic valve is mechanical On-X AVR, no stenosis and no regurgitation. EOA 2.4cm2, MG 4mmHg. 5. Small - moderate pericardial effusion w/ no echo evidence of tamponade. 6. L sided pleural effusion, likely significant. Status: Acute (2) Ascites: Problem details: - incidentally noted on outpatient renal ultrasound 11/08, no history of this, LFTs wnl - ultrasound 11/11: 1. Non cirrhotic liver morphology. 2. No solid liver lesion by ultrasound. Status: Acute (3) Pleural effusion: Problem details: - noted on admission CXR 11/08 unchanged left greater than right basilar pleural effusions with adjacent compressive atelectasis - persistent on imaging 11/11 - symptoms include orthopnea, PND, GALARZA - reviewed with Dr. Bergman of General Surgery who is amenable to thoracentesis when INR is lower - stop Coumadin 11/11, bridge with 1mg/kg Lovenox BID, recheck INR 11/12, plan for inpatient vs outpatient thoracentesis pending INR and hospital d/c Status: Acute (4) Paroxysmal atrial fibrillation: Problem details: -s/p MAZE on 09/19/23 at [facility] -had been off of Metoprolol post-procedure; restarted 11/09 given evidence of CHF exacerbation and sinus tachycardia -11/08 EKG exhibited sinus tachycardia, which patient has noted over the past 2- 3 weeks prior to admission -sinus rhythm on telemetry since admission Status: Acute (5) History of aortic valve replacement: Problem details: -s/p mechanical aortic valve replacement at [facility] 10/04 (on life-long warfarin) Status: Acute (6) Chronic anticoagulation: Problem details: -INR goal 2-3, mechanical aortic valve, life-long -pharmacy to manage Coumadin dosing Status: Chronic (7) Chronic kidney disease, stage 4 (severe): Problem details: -creatinine 2.0 on admission 11/08 (appears to be baseline for him) -avoid nephrotoxic medications, monitor closely in setting of IV diuresis -followed by Dr. Villalobos, [facility] Status: Chronic (8) Hyperlipidemia: Problem details: -continue statin Status: Chronic (9) Type 2 diabetes mellitus: Problem details: -diagnosed 2011, A1c 6.4 in July -continue glipizide. Metformin discontinued prior to surgery. -diabetic diet, glucose checks ACHS. Will defer insulin sliding scale at this time, monitoring for need Status: Chronic (10) Anemia of chronic disease: Problem details: -chronic, per patient. Normocytic. Peripheral smear 11/03 revealed acanthocytes, c/w anemia of iron deficiency as well as anemia of chronic disease -hemoglobin 10.1 on admission, previously 10.3 -has appointment with [facility] in November Status: Chronic (11) CAD (coronary artery disease): Problem details: -Hx CABG x1 and aortic valve replacement 09/19/23 Status: Chronic (12) BPH (benign prostatic hyperplasia): Problem details: - continue home doses of finasteride and tamsulosin Status: Chronic (13) Essential hypertension: Problem details: - restarted Metoprolol on 11/09/23 Status: Chronic Plan - per above - updated at bedside, questions answered - pending diuresis, renal function, tolerance of Spironolactone: home in 1-2 days with plan for thoracentesis Subjective Date Seen: 11/11/23 Interval history: David was admitted to the hospital on 11/08 for acute CHF exacerbation; he had noticed progressive dyspnea in addition to an incidental finding of ascites on outpatient renal ultrasound. He was transitioned from IV to oral furosemide on 11/10. Continues to diurese, L sided pleural effusion persists. Notes + orthopnea and PND, amenable to discussing thoracentesis. Comorbidities include CKD, DM2, paroxysmal atrial fibrillation, aortic valve replacement, anemia: Creatinine 2.3 (baseline around 2.0) BG 90s-200 INR has remained between 2-3 Hgb 9.1 (10.1 on admission), no evidence of acute bleeding. Long h/o anemia, seeing [facility] on 11/14/2023 Exam Narrative: Exam Narrative: GEN: Alert HEENT: Normal external ears, EOMIs bilaterally, no scleral icterus CV: RRR, mid systolic click heard best at left sternal border R: LCTA bilaterally without concerning wheezing, decreased breath sounds left base Ab: soft, no HM Ext: 1-2+ pitting edema bilateral lower extremities, improved from previous exam Skin: No concerning skin lesions or rashes on exposed skin Neuro: Nonfocal Psych: Appropriate Const: Vital Signs, click to edit/add: Vital Signs - 24 hr 11/10/23 11:43 11/10/23 14:39 11/10/23 14:40 Temperature 97.6 F 97.5 F L Pulse Rate Pulse Rate [Pulse Oximeter] 85 84 Respiratory Rate 16 20 20 Blood Pressure [Ri ght Arm] 111/7 L 122/80 Pulse Oximetry 96 94 94 Oxygen Delivery Me thod Room Air Room Air Room Air 11/10/23 14:42 11/10/23 19:00 11/10/23 23:00 Temperature 98.5 F Pulse Rate 85 Pulse Rate [Pulse Oximeter] 90 Respiratory Rate 20 Blood Pressure [Ri ght Arm] Pulse Oximetry 92 92 Oxygen Delivery Me thod Room Air Room Air 11/10/23 23:00 11/10/23 23:00 11/11/23 04:43 Temperature 98.3 F Pulse Rate 82 Pulse Rate [Pulse Oximeter] 88 Respiratory Rate 18 18 Blood Pressure [Ri ght Arm] 110/75 Pulse Oximetry 91 Oxygen Delivery Me thod Room Air 11/11/23 07:13 11/11/23 08:15 11/11/23 08:15 Temperature 97.8 F Pulse Rate 86 Pulse Rate [Pulse Oximeter] 87 Respiratory Rate 18 Blood Pressure [Ri ght Arm] 117/72 Pulse Oximetry 96 96 Oxygen Delivery Me thod Room Air Room Air Labs Labs: Laboratory Results - last 24 hr 11/10/23 11/11/23 11/11/23 18:00 06:14 06:14 WBC Cancelled 6.41 RBC Cancelled Hgb Hct MCV MCH MCHC RDW Coeff of Mila Plt Count Neut % (Auto) Lymph % (Auto) [place] % (Auto) Eos % (Auto) Baso % (Auto) Neut # (Auto) Lymph # (Auto) [place] # (Auto) Eos # (Auto) Baso # (Auto) Abs Immat Gran (auto) Imm/Tot Granulo (auto) INR Sodium Potassium Chloride Carbon Dioxide Anion Gap BUN Creatinine Estimated Creat Clear Estimated GFR Glucose Calcium Total Bilirubin AST ALT Alkaline Phosphatase Total Protein Albumin TSH SARS-CoV-2 (PCR) Negative SARS-CoV-2 Influenza Type A (PCR) Negative PCR FLU A Influenza Type B (PCR) Negative PCR FLU B RSV (PCR) Negative PCR RSV 11/11/23 11/11/23 11/11/23 06:14 06:14 06:14 WBC RBC 3.23 L Hgb Cancelled 9.1 L Hct Cancelled 30.3 L MCV Cancelled MCH MCHC RDW Coeff of Mila Plt Count Neut % (Auto) Lymph % (Auto) [place] % (Auto) Eos % (Auto) Baso % (Auto) Neut # (Auto) Lymph # (Auto) [place] # (Auto) Eos # (Auto) Baso # (Auto) Abs Immat Gran (auto) Imm/Tot Granulo (auto) INR Sodium Potassium Chloride Carbon Dioxide Anion Gap BUN Creatinine Estimated Creat Clear Estimated GFR Glucose Calcium Total Bilirubin AST ALT Alkaline Phosphatase Total Protein Albumin TSH SARS-CoV-2 (PCR) Influenza Type A (PCR) Influenza Type B (PCR) RSV (PCR) 11/11/23 11/11/23 11/11/23 06:14 06:14 06:14 WBC RBC Hgb Hct MCV 94 MCH Cancelled 28 MCHC Cancelled 30 L RDW Coeff of Mila 14.4 Plt Count Cancelled Neut % (Auto) Lymph % (Auto) [place] % (Auto) Eos % (Auto) Baso % (Auto) Neut # (Auto) Lymph # (Auto) [place] # (Auto) Eos # (Auto) Baso # (Auto) Abs Immat Gran (auto) Imm/Tot Granulo (auto) INR Sodium Potassium Chloride Carbon Dioxide Anion Gap BUN Creatinine Estimated Creat Clear Estimated GFR Glucose Calcium Total Bilirubin AST ALT Alkaline Phosphatase Total Protein Albumin TSH SARS-CoV-2 (PCR) Influenza Type A (PCR) Influenza Type B (PCR) RSV (PCR) 11/11/23 06:14 WBC RBC Hgb Hct MCV MCH MCHC RDW Coeff of Mila Plt Count 208 Neut % (Auto) 72.3 H Lymph % (Auto) 14.5 L [place] % (Auto) 10.9 Eos % (Auto) 1.9 Baso % (Auto) 0.2 Neut # (Auto) 4.60 Lymph # (Auto) 0.90 [place] # (Auto) 0.70 Eos # (Auto) 0.12 Baso # (Auto) 0.01 Abs Immat Gran (auto) 0.01 Imm/Tot Granulo (auto) 0.2 INR 2.09 H Sodium 138 Potassium 3.8 Chloride 100 Carbon Dioxide 31 Anion Gap 7 BUN 30 Creatinine 2.3 H Estimated Creat Clear 29.46 Estimated GFR 30 Glucose 164 H Calcium 8.3 L Total Bilirubin 0.3 AST 22 ALT 25 Alkaline Phosphatase 85 Total Protein 6.4 Albumin 3.2 L TSH 2.660 SARS-CoV-2 (PCR) Influenza Type A (PCR) Influenza Type B (PCR) RSV (PCR)
[2023-11-11] MEDS: SODIUM CHLORIDE 0.9 % (FLUSH) 10 ML SYRINGE 5 ML IVF ×2 (11:00→20:32)
[2023-11-11] MEDS: SPIRONOLACTONE 25 MG TABLET PO (15:19)
[2023-11-11] MEDS: ENOXAPARIN 100 MG/ML INJ SUBCUT (20:32)
[2023-11-11] MEDS: TAMSULOSIN HCL 0.4 MG CAPSULE PO (20:33)
[2023-11-11] MEDS: ATORVASTATIN CALCIUM 40 MG TABLET 80 MG PO (20:33)
--- NOTE | 2023-11-11 21:38 | PC.NURSE ---
Pt alert and oriented. Pt pleasant and cooperative. Pt independent in room. Pt?s at bedside. Pt had no complaints of pain. Pt has BLE edema. No complaints of SOB or chest pain.
[2023-11-12 02:46] VITALS: BP 130/79; PULSE 75; RESP 16; TEMP 36.6; O2SAT 95
--- NOTE | 2023-11-12 04:18 | PC.NURSE ---
Pt rested well this night. Reporting zero pain. Up IND. Edema remains. LS clear. Refused TEDS.
[2023-11-12 06:45] LABS: Basophils Absolute Auto 0.02 K/uL (0.00-0.30); Basophils Percent Auto 0.3 % (0.0-3.0); Eosinophils Absolute Auto 0.12 K/uL (0.00-0.50); Hematocrit 31.1 % (37.0-53.0); Hemoglobin* 9.4 gm/dL (13.5-17.5); Immature Granulocytes Abs Auto 0.01 K/uL (0.00-0.30); Immature Granulocytes Pct Auto 0.2 %; Lymphocytes Percent Auto 15.9 % (20-44); Mean Corpuscular HGB Conc 30 gm/dL (32-36); Mean Corpuscular Hemoglobin 28 pg (26-34); Mean Corpuscular Volume 93 fL (80-100); Monocytes Percent Auto 10.7 % (0.0-11.0); Neutrophils Absolute Auto 4.23 K/uL (1.7-7.0); Neutrophils Percent Auto 70.9 % (42.0-72.0); Platelet Count* 226 K/uL (140-440); RDW Coefficient of Variation % 14.1 % (11.5-15.5); Red Blood Count 3.36 m/uL (4.30-5.90); White Blood Count* 5.97 K/uL (4.50-11.00)
[2023-11-12 07:00] VITALS: BP 123/78; PULSE 75; PULSE 87; RESP 26; TEMP 36.8; O2SAT 94
[2023-11-12 07:01] LABS: Slide Review Reflex No
[2023-11-12 07:18] LABS: Chloride* 99 mmol/L (96-114); Sodium* 136 mmol/L (135-149)
[2023-11-12 07:21] LABS: Anion Gap 6 mEq/L (7-15); Blood Urea Nitrogen* 32 mg/dL (7-30); Carbon Dioxide* 31 mmol/L (20-32); Creatinine* 2.4 mg/dL (0.5-1.5); Est. Creatinine Clearance* 28.23; Estimated Glomerular Filt Rate 28 ml/min
[2023-11-12 07:22] LABS: Calcium* 8.6 mg/dL (8.4-10.6); Glucose* 122 mg/dL (60-115)
[2023-11-12 07:25] LABS: INR 2.14 (0.91-1.10); Prothrombin Time 25.5 Seconds
[2023-11-12 07:36] LABS: NT Pro B Type NatriureticPept* 5890 pg/mL
[2023-11-12] MEDS: FUROSEMIDE 40 MG TABLET 60 MG PO ×2 (09:23→14:31)
[2023-11-12] MEDS: ASPIRIN 81 MG TAB.CHEW PO (09:23)
[2023-11-12] MEDS: METOPROLOL SUCCINATE (XL) 50 MG TAB PO (09:23)
[2023-11-12] MEDS: SPIRONOLACTONE 25 MG TABLET PO (09:23)
[2023-11-12] MEDS: FINASTERIDE 5 MG TABLET PO (09:24)
[2023-11-12] MEDS: glipiZIDE 2.5 MG ER TAB PO (09:24)
[2023-11-12] MEDS: FERROUS SULFATE 325 MG TABLET PO (09:24)
[2023-11-12] MEDS: ROPINIROLE HCL 1 MG TABLET 0.5 MG PO ×3 (09:24→20:54)
[2023-11-12] MEDS: ENOXAPARIN 100 MG/ML INJ SUBCUT (09:25)
[2023-11-12] MEDS: SODIUM CHLORIDE 0.9 % (FLUSH) 10 ML SYRINGE 5 ML IVF ×2 (09:26→20:54)
[2023-11-12 11:00] VITALS: BP 122/80; PULSE 85; RESP 28; TEMP 36.9; O2SAT 94
--- NOTE | 2023-11-12 15:10 | PC.NURSE ---
Nursing Care Hours: [id number] Pt this shift calm and cooperative. Alert and oriented with flat affect. Independent in room . 4+ pitting edema, greater swelling in R than L. SHADI's applied, pt tolerating well. Took a shower mid day today. No c/o pain. Eating and drinking. Lasix and spironolactone given, voided total of 375 this shift.
[2023-11-12 15:55] VITALS: BP 127/79; PULSE 83; RESP 18; TEMP 36.4; O2SAT 96
--- NOTE | 2023-11-12 15:55 | PM.IMPN1 ---
Progress Note: A&P Assessment and plan (1) CHF (congestive heart failure): Problem details: -acutely worsened after AV replacement 09/19/23 -TTE results on 11/09 reassuring (see below), pleural effusions likely source of symptoms (GALARZA, orthopnea, edema, PND) -echo 08/17/2023 (pre-surgical) exhibited grade 1/3 left ventricular diastolic dysfunction, EF 67% -management with restart of Metoprolol (sinus tachycardia on admission), IV Lasix (transitioned to 60mg oral Lasix BID + 25mg Qd Spironolactone on 11/11) -continue to follow strict Is/Os, daily weights -reviewed with Dr. Sloan of [facility] 11/11: given reassuring TTE, ascites/pleural effusion likely also related to renal disease - TTE obtained 11/09/23: Final Impressions: 1. Normal LV size, normal wall thickness, normal function with an estimated EF of 60 - 65%. 2. Right ventricular cavity size is normal, global systolic RV function is moderately reduced. 3. Mildly enlarged left atrium. 4. The aortic valve is mechanical On-X AVR, no stenosis and no regurgitation. EOA 2.4cm2, MG 4mmHg. 5. Small - moderate pericardial effusion w/ no echo evidence of tamponade. 6. L sided pleural effusion, likely significant. Status: Acute (2) Pleural effusion: Problem details: - noted on admission CXR 11/08 unchanged left greater than right basilar pleural effusions with adjacent compressive atelectasis - persistent on imaging 11/11 - symptoms include orthopnea, PND, GALARZA - reviewed with Dr. Bergman of General Surgery who is amenable to thoracentesis when INR is lower - stop Coumadin 11/11, bridge with 1mg/kg Lovenox BID, recheck INR 11/12, plan for inpatient vs outpatient thoracentesis pending INR and hospital d/c Status: Acute (3) Ascites: Problem details: - incidentally noted on outpatient renal ultrasound 11/08, no history of this, LFTs wnl - ultrasound 11/11: 1. Non cirrhotic liver morphology. 2. No solid liver lesion by ultrasound. Status: Acute (4) Chronic kidney disease, stage 4 (severe): Problem details: -creatinine 2.0 on admission 11/08 (appears to be baseline for him), up to 2.4 on 11/12 -avoid nephrotoxic medications, monitor closely in setting of IV diuresis -followed by Dr. Villalobos, [facility] -discussed with Dr. Can of [facility] on 11/12; continue to follow creatinine, no changes to current medications, close outpatient Nephrology f/u Status: Chronic (5) Paroxysmal atrial fibrillation: Problem details: -s/p MAZE on 09/19/23 at [facility] -had been off of Metoprolol post-procedure; restarted 11/09 given evidence of CHF exacerbation and sinus tachycardia (noted on admission EKG, also noted prior to admission) Status: Acute (6) History of aortic valve replacement: Problem details: -s/p mechanical aortic valve replacement at [facility] 10/04 (on life-long warfarin) Status: Acute (7) Chronic anticoagulation: Problem details: -INR goal 2-3, mechanical aortic valve, life-long -pharmacy to manage Coumadin dosing (on hold with Lovenox bridge as of 11/11 for anticipated thoracentesis) Status: Chronic (8) Hyperlipidemia: Problem details: -continue statin Status: Chronic (9) Type 2 diabetes mellitus: Problem details: -diagnosed 2011, A1c 6.4 in July -continue glipizide. Metformin discontinued prior to surgery. -diabetic diet, glucose checks ACHS. Will defer insulin sliding scale at this time, monitoring for need Status: Chronic (10) Anemia of chronic disease: Problem details: -chronic, per patient. Normocytic. Peripheral smear 11/03 revealed acanthocytes, c/w anemia of iron deficiency as well as anemia of chronic disease -hemoglobin 10.1 on admission, previously 10.3 -has appointment with [facility] in November Status: Chronic (11) CAD (coronary artery disease): Problem details: -Hx CABG x1 and aortic valve replacement 09/19/23 Status: Chronic (12) BPH (benign prostatic hyperplasia): Problem details: - continue home doses of finasteride and tamsulosin Status: Chronic (13) Essential hypertension: Problem details: - restarted Metoprolol on 11/09/23 given concurrent tachycardia Status: Chronic Plan - per above, very symptomatic from pleural effusion so may need to remain inpatient until procedure - Lovenox for ppx (1mg/kg/BID), continue to follow INR and renal function, continue diuresis, symptom management - updated at bedside, questions answered Subjective Date Seen: 11/12/23 Interval history: David was admitted to the hospital on 11/08 for acute fluid overload and presumable CHF exacerbation; he had noticed progressive dyspnea in addition to an incidental finding of ascites on outpatient renal ultrasound. Workup in ED also revealed B pleural effusions, L>R. Admitted for monitoring and diuresis. He was transitioned from IV to oral furosemide on 11/10. David continues to note orthopnea, PND, GALARZA. Coumadin was discontinued on 11/11 (bridging with Lovenox - mechanical AV) for anticipation of diagnostic and therapeutic thoracentesis. Comorbidities include CKD, DM2, paroxysmal atrial fibrillation, aortic valve replacement, anemia: Creatinine 2.4 on 11/12 (baseline around 2.0), sees Dr. Villalobos of [facility]. BG 137-209 INR 2.14 today Hgb 9-10 during stay (baseline), no evidence of acute bleeding. Long h/o anemia, has appt with [facility] on 11/14/2023 Exam Narrative: Exam Narrative: GEN: Alert, oriented, 4-5 word dyspnea HEENT: Normal external ears, EOMIs bilaterally, no scleral icterus CV: RRR, + click midsternum R: Decreased breath sounds L base, intermittent coughing paroxysms, more prominent when supine Ab: soft, no concerning distention Ext: BLE edema, symmetric Neuro: No focal deficits Psych: Appropriate Const: Vital Signs, click to edit/add: Vital Signs - 24 hr 11/11/23 19:10 11/11/23 23:56 11/11/23 23:57 Temperature 97.6 F 98.4 F Pulse Rate [Pulse Oximeter] 85 79 79 Respiratory Rate 16 16 16 Blood Pressure [Ri t Arm] 120/77 109/71 Pulse Oximetry 96 96 Oxygen Delivery Me thod Room Air Room Air 11/11/23 23:57 11/12/23 02:46 11/12/23 07:00 Temperature 98 F Pulse Rate [Pulse Oximeter] 75 75 Respiratory Rate 16 16 26 H Blood Pressure [Ri ght Arm] 130/79 Pulse Oximetry 96 95 Oxygen Delivery Me thod Room Air Room Air 11/12/23 07:00 11/12/23 07:00 11/12/23 11:00 Temperature 98.2 F 98.5 F Pulse Rate [Pulse Oximeter] 87 85 Respiratory Rate 26 H 26 H 28 H Blood Pressure [Ri ght Arm] 123/78 122/80 Pulse Oximetry 94 94 94 Oxygen Delivery Me thod Room Air Room Air Room Air Labs Labs: Laboratory Results - last 24 hr 11/12/23 06:17 WBC 5.97 RBC 3.36 L Hgb 9.4 L Hct 31.1 L MCV 93 MCH 28 MCHC 30 L RDW Coeff of Mila 14.1 Plt Count 226 Neut % (Auto) 70.9 Lymph % (Auto) 15.9 L [place] % (Auto) 10.7 Eos % (Auto) 2.0 Baso % (Auto) 0.3 Neut # (Auto) 4.23 Lymph # (Auto) 0.90 [place] # (Auto) 0.60 Eos # (Auto) 0.12 Baso # (Auto) 0.02 Abs Immat Gran (auto) 0.01 Imm/Tot Granulo (auto) 0.2 INR 2.14 H Sodium 136 Potassium 4.0 Chloride 99 Carbon Dioxide 31 Anion Gap 6 L BUN 32 H Creatinine 2.4 H Estimated Creat Clear 28.23 Estimated GFR 28 Glucose 122 H Calcium 8.6 Magnesium 2.0 NT-Pro-B Natriuret Pep [id number]
[2023-11-12 19:40] VITALS: BP 129/71; PULSE 90; RESP 18; TEMP 36.4; O2SAT 95
[2023-11-12] MEDS: ENOXAPARIN 100 MG/ML INJ 90 MG SUBCUT (20:50)
[2023-11-12] MEDS: ATORVASTATIN CALCIUM 40 MG TABLET 80 MG PO (20:54)
[2023-11-12] MEDS: SENNOSIDES/DOCUSATE TABLET 1 TAB PO (20:54)
[2023-11-12] MEDS: TAMSULOSIN HCL 0.4 MG CAPSULE PO (20:54)
--- NOTE | 2023-11-12 22:24 | PC.NURSE ---
Pt alert and oriented. Pt pleasant and cooperative. Pt independent in room. Pt?s at bedside for first part of shift. Pt had no complaints of pain. Pt has BLE edema and new edema in right hand. No complaints of SOB or chest pain. Pt?s blood glucose levels were 113 before supper and 163 at bed time.?
[2023-11-13] VITALS (7 sets, daily range): BP systolic 110–133; BP diastolic 67–81; PULSE 80–90; RESP 18–24; TEMP 36.8–37; O2SAT 93–96
[2023-11-13 07:09] LABS: Basophils Absolute Auto 0.01 K/uL (0.00-0.30); Basophils Percent Auto 0.2 % (0.0-3.0); Eosinophils Percent Auto 1.5 % (0.0-7.0); Hematocrit 32.4 % (37.0-53.0); Hemoglobin* 9.8 gm/dL (13.5-17.5); Immature Granulocytes Abs Auto 0.02 K/uL (0.00-0.30); Immature Granulocytes Pct Auto 0.3 %; Lymphocytes Percent Auto 15.4 % (20-44); Mean Corpuscular HGB Conc 30 gm/dL (32-36); Mean Corpuscular Hemoglobin 28 pg (26-34); Mean Corpuscular Volume 93 fL (80-100); Monocytes Percent Auto 10.6 % (0.0-11.0); Neutrophils Absolute Auto 4.68 K/uL (1.7-7.0); Platelet Count* 234 K/uL (140-440); RDW Coefficient of Variation % 14.4 % (11.5-15.5); Red Blood Count 3.49 m/uL (4.30-5.90)
[2023-11-13 07:13] LABS: HCO3 VBG 34 mmol/L (21-28); PCO2 VBG 46 mmHG (40-50); PO2 VBG 45.8 mmHG (25-47); pH VBG 7.477 (7.32-7.43)
[2023-11-13 07:25] LABS: INR 1.84 (0.91-1.10); Prothrombin Time 22.6 Seconds
[2023-11-13 07:27] LABS: Slide Review Reflex No
[2023-11-13 07:52] LABS: Chloride* 100 mmol/L (96-114); Sodium* 137 mmol/L (135-149)
[2023-11-13 07:53] LABS: Potassium* 4.4 mmol/L (3.6-5.1)
[2023-11-13 07:55] LABS: Anion Gap 7 mEq/L (7-15); Carbon Dioxide* 30 mmol/L (20-32); Creatinine* 2.3 mg/dL (0.5-1.5); Est. Creatinine Clearance* 29.46; Estimated Glomerular Filt Rate 30 ml/min
[2023-11-13 07:56] LABS: Blood Urea Nitrogen* 35 mg/dL (7-30); Calcium* 8.6 mg/dL (8.4-10.6); Glucose* 122 mg/dL (60-115); Phosphorus* 4.3 mg/dL (2.5-4.5)
[2023-11-13] MEDS: ASPIRIN 81 MG TAB.CHEW PO (08:30)
[2023-11-13] MEDS: FUROSEMIDE 40 MG TABLET 60 MG PO ×2 (08:30→15:02)
[2023-11-13] MEDS: SENNOSIDES/DOCUSATE TABLET 1 TAB PO ×2 (08:30→20:22)
[2023-11-13] MEDS: FINASTERIDE 5 MG TABLET PO (08:30)
[2023-11-13] MEDS: SPIRONOLACTONE 25 MG TABLET PO (08:30)
[2023-11-13] MEDS: METOPROLOL SUCCINATE (XL) 50 MG TAB PO (08:30)
[2023-11-13] MEDS: ROPINIROLE HCL 1 MG TABLET 0.5 MG PO ×3 (08:30→20:22)
[2023-11-13] MEDS: glipiZIDE 2.5 MG ER TAB PO (08:31)
[2023-11-13] MEDS: FERROUS SULFATE 325 MG TABLET PO (08:31)
--- NOTE | 2023-11-13 14:08 | CRLHL7_ITS ---
For Patients: As a result of the Century Cures Act, medical imaging exams and procedure reports are released immediately into your electronic medical record. You may view this report before your referring provider. If you have questions, please contact your health care provider. Indication: Status post thoracentesis Technique: Chest 1 view Comparison: Chest x-ray 11/11/2023 Findings/Impression: Cardiovascular and mediastinum: Cardiomegaly with likely leadless pacemaker. Atherosclerosis. Lungs and pleural space: Small left pleural effusion with retrocardiac atelectasis, decreased in size compared to the prior exam. No pneumothorax. No focal consolidation within the right lung. Bones and soft tissues: Status post median sternotomy. Dictated by Jong Yeboah MD @ 11/13/2023 3:23:47 PM (Electronically Signed)
--- NOTE | 2023-11-13 14:17 | PM.IMPN1 ---
Progress Note: A&P Assessment and plan (1) CHF (congestive heart failure): Problem details: -acutely worsened after AV replacement 09/19/23 -TTE results on 11/09 reassuring (see below), pleural effusions likely source of symptoms (GALARZA, orthopnea, edema, PND) -echo 08/17/2023 (pre-surgical) exhibited grade 1/3 left ventricular diastolic dysfunction, EF 67% -management with restart of Metoprolol (sinus tachycardia on admission), IV Lasix (transitioned to 60mg oral Lasix BID + 25mg Qd Spironolactone on 11/11) -continue to follow strict Is/Os, daily weights -reviewed with Dr. Sloan of [facility] 11/11: given reassuring TTE, ascites/pleural effusion likely also related to renal disease - TTE obtained 11/09/23: Final Impressions: 1. Normal LV size, normal wall thickness, normal function with an estimated EF of 60 - 65%. 2. Right ventricular cavity size is normal, global systolic RV function is moderately reduced. 3. Mildly enlarged left atrium. 4. The aortic valve is mechanical On-X AVR, no stenosis and no regurgitation. EOA 2.4cm2, MG 4mmHg. 5. Small - moderate pericardial effusion w/ no echo evidence of tamponade. 6. L sided pleural effusion, likely significant. Status: Acute (2) Pleural effusion: Problem details: - noted on admission CXR 11/08 unchanged left greater than right basilar pleural effusions with adjacent compressive atelectasis - persistent on imaging 11/11 - symptoms include orthopnea, PND, GALARZA - reviewed with Dr. Bergman of General Surgery who is amenable to thoracentesis when INR is lower - stop Coumadin 11/11, bridge with 1mg/kg Lovenox BID, recheck INR 11/12, plan for inpatient vs outpatient thoracentesis pending INR and hospital d/c Status: Acute (3) Ascites: Problem details: - incidentally noted on outpatient renal ultrasound 11/08, no history of this, LFTs wnl - ultrasound 11/11: 1. Non cirrhotic liver morphology. 2. No solid liver lesion by ultrasound. Status: Acute (4) Chronic kidney disease, stage 4 (severe): Problem details: -creatinine 2.0 on admission 11/08 (appears to be baseline for him), up to 2.4 on 11/12 -avoid nephrotoxic medications, monitor closely in setting of IV diuresis -followed by Dr. Villalobos, [facility] -discussed with Dr. Can of [facility] on 11/12; continue to follow creatinine, no changes to current medications, close outpatient Nephrology f/u Status: Chronic (5) Paroxysmal atrial fibrillation: Problem details: -s/p MAZE on 09/19/23 at [facility] -had been off of Metoprolol post-procedure; restarted 11/09 given evidence of CHF exacerbation and sinus tachycardia (noted on admission EKG, also noted prior to admission) Status: Acute (6) History of aortic valve replacement: Problem details: -s/p mechanical aortic valve replacement at [facility] 10/04 (on life-long warfarin) Status: Acute (7) Chronic anticoagulation: Problem details: -INR goal 2-3, mechanical aortic valve, life-long -pharmacy to manage Coumadin dosing (on hold with Lovenox bridge as of 11/11 for anticipated thoracentesis) Status: Chronic (8) Hyperlipidemia: Problem details: -continue statin Status: Chronic (9) Type 2 diabetes mellitus: Problem details: -diagnosed 2011, A1c 6.4 in July -continue glipizide. Metformin discontinued prior to surgery. -diabetic diet, glucose checks ACHS. Will defer insulin sliding scale at this time, monitoring for need Status: Chronic (10) Anemia of chronic disease: Problem details: -chronic, per patient. Normocytic. Peripheral smear 11/03 revealed acanthocytes, c/w anemia of iron deficiency as well as anemia of chronic disease -hemoglobin 10.1 on admission, previously 10.3 -has appointment with [facility] in November Status: Chronic (11) CAD (coronary artery disease): Problem details: -Hx CABG x1 and aortic valve replacement 09/19/23 Status: Chronic (12) BPH (benign prostatic hyperplasia): Problem details: - continue home doses of finasteride and tamsulosin Status: Chronic (13) Essential hypertension: Problem details: - restarted Metoprolol on 11/09/23 given concurrent tachycardia Status: Chronic Plan - thoracentesis today - stay for monitoring, restart Lovenox and Coumadin tomorrow Subjective Date Seen: 11/13/23 Interval history: David was admitted to the hospital on 11/08 for acute fluid overload and presumable CHF exacerbation. Symptoms included progressive dyspnea; prior to admission, there was an incidental finding of ascites on outpatient renal ultrasound, and ER imaging also revealed B pleural effusions, L>R. Initially admitted for IV diuresis, transitioned to oral Furosemide on 11/10. TTE reassuring, pleural effusions persistent. While not requiring supplemental oxygen, David continues to be symptomatic with orthopnea, PND, GALARZA. Today, INR below 2. Dr. Bergman of General Surgery is consulting for thoracentesis. Comorbidities include CKD, DM2, paroxysmal atrial fibrillation, aortic valve replacement September 2023, anemia: Creatinine 2.3 on 11/13/23 (baseline around 2.0), follows with Dr. Villalobos of [facility]. BG 113-199 Hgb 9-10 during stay (baseline), no evidence of acute bleeding. Long h/o anemia, has appt with [facility] on 11/14/2023. Exam Narrative: Exam Narrative: GEN: Alert and awake, intermittent tachypnea during visit HEENT: EOMIs bilaterally, no scleral icterus CV: RRR, mid-systolic click noted R: Decreased breath sounds B bases Ext: BLE edema, stable Skin: No concerning skin lesions or rashes on exposed skin Neuro: Nonfocal Psych: Appropriate Const: Vital Signs, click to edit/add: Vital Signs - 24 hr 11/12/23 15:55 11/12/23 15:55 11/12/23 19:40 Temperature 97.6 F 97.5 F L Pulse Rate [Pulse Oximeter] 83 90 Respiratory Rate 18 18 18 Blood Pressure [Le ft Arm] Blood Pressure [Ri ght Arm] 127/79 129/71 Pulse Oximetry 96 96 95 Oxygen Delivery Me thod Room Air Room Air Room Air 11/13/23 01:15 11/13/23 01:15 11/13/23 01:15 Temperature 98.2 F Pulse Rate [Pulse Oximeter] 85 85 Respiratory Rate 22 22 22 Blood Pressure [Le ft Arm] 129/67 Blood Pressure [Ri ght Arm] Pulse Oximetry 96 96 Oxygen Delivery Me thod Room Air Room Air 11/13/23 06:00 11/13/23 07:00 11/13/23 07:00 Temperature 98.5 F Pulse Rate [Pulse Oximeter] 90 Respiratory Rate 18 20 20 Blood Pressure [Le ft Arm] Blood Pressure [Ri ght Arm] 133/81 Pulse Oximetry 95 95 Oxygen Delivery Me thod Room Air Room Air Room Air 11/13/23 07:00 11/13/23 10:55 Temperature 98.2 F Pulse Rate [Pulse Oximeter] 90 88 Respiratory Rate 20 20 Blood Pressure [Le ft Arm] Blood Pressure [Ri ght Arm] 110/78 Pulse Oximetry 93 Oxygen Delivery Me thod Room Air Labs Labs: Laboratory Results - last 24 hr 11/13/23 06:14 WBC 6.50 RBC 3.49 L Hgb 9.8 L Hct 32.4 L MCV 93 MCH 28 MCHC 30 L RDW Coeff of Mila 14.4 Plt Count 234 Neut % (Auto) 72.0 Lymph % (Auto) 15.4 L [place] % (Auto) 10.6 Eos % (Auto) 1.5 Baso % (Auto) 0.2 Neut # (Auto) 4.68 Lymph # (Auto) 1.00 [place] # (Auto) 0.70 Eos # (Auto) 0.10 Baso # (Auto) 0.01 Abs Immat Gran (auto) 0.02 Imm/Tot Granulo (auto) 0.3 INR 1.84 H VBG pH 7.477 H VBG pCO2 46 VBG pO2 45.8 VBG HCO3 34 H Sodium 137 Potassium 4.4 Chloride 100 Carbon Dioxide 30 Anion Gap 7 BUN 35 H Creatinine 2.3 H Estimated Creat Clear 29.46 Estimated GFR 30 Glucose 122 H Calcium 8.6 Phosphorus 4.3 Magnesium 2.0
--- NOTE | 2023-11-13 14:20 | P.PCN_ITS ---
Procedure Note Date Seen: 11/13/23 Will [facility] bill your pro fee for this procedure?: Yes Pre-op diagnosis: 1. Symptomatic left pleural effusion. Post-op diagnosis: same Procedure: 1. Ultrasound-guided left thoracentesis. Procedure Description: Ultrasound was brought onto the field and a Left pleural effusion was visualized. 1% lidocaine was used to anesthetize the skin over the rib and local anesthetic was also injected to anesthetize the needle tract over the rib. A small skin héctor was made with 11 blade scalpel and a thoracentesis needle with an angio cath was advanced into the right chest over the rib under US guidance. When the needle with the catheter was in the chest cavity, the needle was withdrawn and thoracentesis catheter was advanced further into the chest without difficulties. Bloody thin serosanguineous fluid was aspirated from the chest. The fluid was sent for fluid studies and culture. A total of 960 cc of fluid was removed from the chest. Towards the end of the procedure patient had coughing. At this time the procedure was stopped. Patient still had some residual fluid in his chest. The catheter was then withdrawn and skin incision was closed with Dermabond. Patient tolerated procedure well. Post procedure CXR was ordered. EBL: Minimal Complications: none Anesthesia: local Pathology: specimen obtained, sent to pathology Condition: stable Disposition: no change
--- NOTE | 2023-11-13 14:41 | ED.GENADULT ---
HPI - General Adult General Chief complaint: Shortness of Breath/Dyspnea Stated complaint: Dr Villalobos worried abt breath during kidneycheck Time Seen by Provider: 11/08/23 14:35 History of Present Illness HPI narrative: This is an addendum to my ER note from 11/08/2023. I inadvertently admitted my physical exam from my previous note. Please see that note for full details of the patient's history, workup, and plan of care. Related Data Home Medications Medication Instructions Recorded Confirmed aspirin 81 mg chewable tablet 81 mg PO DAILY 10/18/23 11/08/23 atorvastatin 80 mg tablet 80 mg PO DAILY 10/18/23 11/08/23 cholecalciferol (vitamin D3) 2,000 unit PO DAILY 10/18/23 11/08/23 ferrous sulfate 325 mg (65 mg 325 mg PO QAM 10/18/23 11/08/23 iron) tablet finasteride 5 mg tablet 5 mg PO DAILY 10/18/23 11/08/23 mecobalamin (vitamin B12) PO DAILY 10/18/23 10/31/23 ropinirole 0.5 mg tablet 0.5 mg PO 3XD 10/18/23 11/09/23 tamsulosin 0.4 mg capsule 0.4 mg PO DAILY 10/18/23 11/08/23 warfarin 1 mg tablet 2 mg PO QHS 10/18/23 11/08/23 Previous Rx's Medication Instructions Recorded glipizide 2.5 mg tablet, extended 2.5 mg PO DAILY #90 tabs 11/06/23 release 24 hr Allergies Allergy/AdvReac Type Severity Reaction Status Date / Time No Known Drug Allergies Allergy Verified 11/08/23 13:54 PFSH PFSH Medical History Pleural effusion ?J90 - Pleural effusion, not elsewhere classified (ICD-10) CHF (congestive heart failure) ?I50.9 - Heart failure, unspecified (ICD-10) Chronic anticoagulation ?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 (ICD-10) Chronic kidney disease, stage 4 (severe) ?N18.4 - Chronic kidney disease, stage 4 (severe) (ICD-10) Hyperlipidemia ?E78.5 - Hyperlipidemia, unspecified (ICD-10) Type 2 diabetes mellitus ?E11.9 - Type 2 diabetes mellitus without complications (ICD-10) Anemia of chronic disease ?D63.8 - Anemia in other chronic diseases classified elsewhere (ICD-10) Paroxysmal atrial fibrillation ?I48.0 - Paroxysmal atrial fibrillation (ICD-10) CAD (coronary artery disease) ?I25.10 - Atherosclerotic heart disease of [place] coronary artery without angina pectoris (ICD-10) Chronic pain of right knee ?M25.561 - Pain in right knee (ICD-10) ?G89.29 - Other chronic pain (ICD-10) RLS (restless legs syndrome) ?G25.81 - Restless legs syndrome (ICD-10) BPH (benign prostatic hyperplasia) ?N40.0 - Benign prostatic hyperplasia without lower urinary tract symptoms (ICD-10) Essential hypertension ?I10 - Essential (primary) hypertension (ICD-10) Chronic right shoulder pain ?M25.511 - Pain in right shoulder (ICD-10) ?G89.29 - Other chronic pain (ICD-10) History of CVA (cerebrovascular accident) ?Z86.73 - Personal history of transient ischemic attack (TIA), and cerebral infarction without residual deficits (ICD-10) Surgical History History of aortic valve replacement ?Z95.2 - Presence of prosthetic heart valve (ICD-10) History of coronary artery bypass graft x 1 ?Z95.1 - Presence of aortocoronary bypass graft (ICD-10) History of colonoscopy ?Z98.890 - Other specified postprocedural states (ICD-10) History of skin cancer ?Z85.828 - Personal history of other malignant neoplasm of skin (ICD-10) Family History Son Aortic valve replaced Bicuspid aortic valve Brother Alzheimers disease Daughter Bicuspid aortic valve Maternal Grandfather Diabetes Myocardial infarction Heart disease Father Heart disease Mother Lymphoma Paternal Grandfather Prostate cancer Social History What is your current living situation?: I presently have a place to live Problems where you live: no known problems Problems where you live details: None In the past 12 months, utilities in danger of being shut off: no In past 12 months, lack of transportation kept you from medical appts, meetings, work, or getting things needed for daily living: no In the past 12 mos, have been you worried that your food would run out before you had money to buy more?: never true In the past 12 mos, the food you bought just didn't last and you didn't have money to buy more?: never true Are you following a diet prescribed by a doctor: No (Reports he is supposed to follow a low sodium, diabetic diet.) Are you following a special diet: No Highest level of school completed/degree received: some college, no degree Smoking Status: Never smoker How often do you have a drink containing alcohol: never AUDIT-C Alcohol total score: 0 Non-prescribed substance use: denies use Caffeine: Yes (1 cup a day) How often does anyone, including family, friends and others, physically hurt you: never How often does anyone, including family, friends and others, insult or talk down to you: never How often does anyone, including family, friends and others, threaten you with harm: never How often does anyone, including family, friends and others, scream or curse at you: never service: No Exam Narrative: Exam Narrative: Constitutional: Appears well-developed and well-nourished. Alert. Conversant, when resting in bed but gets short of breath when he tries to walk around. Per 1st stay sitting up for comfort. Non toxic. HENT: Head: Atraumatic. Nose: Nose normal. Mouth/Throat: Oral mucosa is clear and moist. no trismus. Pharynx normal. Tonsils symmetric. No tonsillar enlargement, erythema, or exudate. Eyes: Conjunctivae normal. EOM normal. Pupils equal, round, and reactive to light. No scleral icterus. Neck: Normal range of motion. Neck supple. No tracheal deviation present. Cardiovascular: Normal rate, regular rhythm. No gallop. No friction rub. No murmur heard. Symmetric radial artery pulses Pulmonary/Chest: Effort normal. No stridor. No respiratory distress. No wheezes. Bilateral rales diminished in the bases. No rhonchi . No tenderness. Abdominal: Soft. Mild distension, but non-tympanic, suspect fluid retention. No mass. No tenderness. No rebound. No guarding. Musculoskeletal: RUE: Normal range of motion. No tenderness. No deformity LUE: Normal range of motion. No tenderness. No deformity RLE: Normal range of motion. 3+ pitting edema. No tenderness. No deformity LLE: Normal range of motion. 3+ pitting edema. No tenderness. No deformity Neurological: Alert and oriented to person, place, and time. Normal strength. CN II-VII intact. No sensory deficit. GCS eye subscore is 4. GCS verbal subscore is 5. GCS motor subscore is 6. Normal coordination Skin: Skin is warm and dry. No rash noted. No pallor. Normal capillary refill. Psychiatric: Normal mood. Normal affect. Course Vital Signs Vital signs: Initial Vital Signs Temperature 98.2 F 11/08/23 13:55 Temperature Source Temporal Artery Scan 11/08/23 13:55 Pulse Rate 106 H 11/08/23 13:55 Respiratory Rate 18 11/08/23 13:55 Blood Pressure 158/86 H 11/08/23 13:55 Blood Pressure Mean 110 H 11/08/23 13:55 Blood Pressure Position Sitting 11/08/23 13:55 Pulse Oximetry 96 11/08/23 13:55 Oxygen Delivery Method Room Air 11/08/23 13:55 Vital Signs Temperature 98.2 F 11/08/23 13:55 Pulse Rate 106 H 11/08/23 13:55 Respiratory Rate 18 11/08/23 13:55 Blood Pressure 158/86 H 11/08/23 13:55 Pulse Oximetry 96 11/08/23 13:55 Oxygen Delivery Method Room Air 11/08/23 13:55 Temperature 98.2 F 11/13/23 10:55 Pulse Rate 88 11/13/23 10:55 Respiratory Rate 20 11/13/23 10:55 Blood Pressure 110/78 11/13/23 10:55 Pulse Oximetry 93 11/13/23 10:55 Oxygen Delivery Method Room Air 11/13/23 10:55 Medications Administered Medications: Generic Name Dose Route Start Last Admin Trade Name Freq PRN Reason Stop Dose Admin Acetaminophen 650 - 975 mg 11/08/23 19:34 11/09/23 08:57 Acetaminophen 325 Mg Tablet PO 650 mg Q6H PRN Administration Aspirin 81 mg 11/09/23 09:00 11/13/23 08:30 Aspirin 81 Mg Tab.Chew PO 81 mg DAILY DEMOND Administration Atorvastatin Calcium 80 mg 11/08/23 21:00 11/12/23 20:54 Atorvastatin Calcium 40 Mg Tablet PO 80 mg HS DEMOND Administration Ferrous Sulfate 325 mg 11/09/23 09:00 11/13/23 08:31 Ferrous Sulfate 325 Mg Tablet PO 325 mg QAM DEMOND Administration Finasteride 5 mg 11/09/23 09:00 11/13/23 08:30 Finasteride 5 Mg Tablet PO 5 mg DAILY DEMOND Administration Furosemide 60 mg 11/12/23 08:00 11/13/23 08:30 Furosemide 40 Mg Tablet PO 60 mg BID@0800,1400 DEMOND Administration Glipizide 2.5 mg 11/09/23 09:00 11/13/23 08:31 Glipizide 2.5 Mg Er Tab PO 2.5 mg DAILY DEMOND Administration Metoprolol Succinate 50 mg 11/09/23 09:00 11/13/23 08:30 Metoprolol Succinate (Xl) 50 Mg Tab PO 50 mg DAILY DEMOND Administration Ondansetron HCl 4 mg 11/08/23 19:39 11/10/23 12:47 Ondansetron 2 Mg/Ml Inj IVP 4 mg Q4H PRN Administration Nausea Ropinirole HCl 0.5 mg 11/08/23 21:00 11/13/23 08:30 Ropinirole Hcl 1 Mg Tablet PO 0.5 mg TID DEMOND Administration Senna/Docusate Sodium 1 tab 11/08/23 21:00 11/13/23 08:30 Sennosides/Docusate Tablet PO 1 tab BID DEMOND Administration Sodium Chloride 5 ml 11/08/23 19:34 11/10/23 12:47 Sodium Chloride 0.9 % (Flush) 10 Ml Syringe IVF 5 ml .FLUSH PRN Administration Sodium Chloride 5 ml 11/08/23 21:00 11/12/23 20:54 Sodium Chloride 0.9 % (Flush) 10 Ml Syringe IVF 5 ml BID DEMOND Administration Spironolactone 25 mg 11/12/23 09:00 11/13/23 08:30 Spironolactone 25 Mg Tablet PO 25 mg DAILY DEMOND Administration Tamsulosin HCl 0.4 mg 11/08/23 21:00 11/12/23 20:54 Tamsulosin Hcl 0.4 Mg Capsule PO 0.4 mg HS DEMOND Administration Vitamin D 50 mcg 11/09/23 09:00 11/13/23 08:31 Cholecalciferol (Vitamin D3) 25 Mcg Tablet (1000 Unit) PO 50 mcg DAILY DEMOND Administration Discontinued Medications Generic Name Dose Route Start Last Admin Trade Name Melba PRN Reason Stop Dose Admin Enoxaparin Sodium 100 mg 11/11/23 21:00 11/12/23 09:25 Enoxaparin 100 Mg/Ml Inj SUBCUT 100 mg Q12H DEMOND Administration Enoxaparin Sodium 90 mg 11/12/23 21:00 11/12/23 20:50 Enoxaparin 100 Mg/Ml Inj SUBCUT 90 mg Q12H DEMOND Administration Furosemide 80 mg 11/08/23 17:05 11/08/23 17:27 Furosemide 10 Mg/Ml Inj IVP 11/08/23 17:06 80 mg ONCE ONE Administration Furosemide 60 mg 11/09/23 09:00 11/09/23 21:12 Furosemide 10 Mg/Ml Inj IVP 60 mg BID DEMOND Administration Furosemide 60 mg 11/10/23 09:00 11/10/23 08:50 Furosemide 10 Mg/Ml Inj IVP 60 mg BID@09,16 DEMOND Administration Furosemide 80 mg 11/10/23 14:00 11/11/23 13:47 Furosemide 40 Mg Tablet PO 80 mg BID@0800,1400 [facility] Administration Spironolactone 25 mg 11/11/23 14:50 11/11/23 15:19 Spironolactone 25 Mg Tablet PO 11/11/23 14:51 25 mg ONCE ONE Administration Warfarin Sodium 2 mg 11/08/23 19:45 11/10/23 17:10 Warfarin 2 Mg Tablet PO 2 mg 1700 [facility] Administration Medical Decision Making Lab Data Labs: Lab Results 11/08/23 11/08/23 11/09/23 Range/Units 14:43 Unknown 05:41 WBC 7.15 6.59 (4.50-11.00) K/uL RBC 3.57 L 3.23 L (4.30-5.90) m/uL Hgb 10.1 L 9.2 L (13.5-17.5) gm/dL Hct 33.7 L 30.2 L (37.0-53.0) % MCV 94 94 (80-100) fL MCH 28 29 (26-34) pg MCHC 30 L 31 L (32-36) gm/dL RDW Coeff of Mila 14.3 (11.5-15.5) % Plt Count 267 214 (140-440) K/uL Neut % (Auto) 76.9 H (42.0-72.0) % Lymph % (Auto) 12.0 L (20-44) % [place] % (Auto) 8.7 (0.0-11.0) % Eos % (Auto) 1.3 (0.0-7.0) % Baso % (Auto) 0.3 (0.0-3.0) % Neut # (Auto) 5.50 (1.7-7.0) K/uL Lymph # (Auto) 0.90 (0.90-2.90) K/uL [place] # (Auto) 0.60 (0.00-0.90) K/UL Eos # (Auto) 0.09 (0.00-0.50) K/uL Baso # (Auto) 0.02 (0.00-0.30) K/uL Abs Immat Gran (auto) 0.06 (0.00-0.30) K/uL Imm/Tot Granulo (auto) 0.8 % INR 2.20 H (0.91-1.10) Sodium 140 140 (135-149) mmol/L Potassium 4.2 4.0 (3.6-5.1) mmol/L Chloride 103 105 (96-114) mmol/L Carbon Dioxide 26 29 (20-32) mmol/L Anion Gap 11 6 L (7-15) mEq/L BUN 25 28 (7-30) mg/dL Creatinine 2.0 H 2.0 H (0.5-1.5) mg/dL Estimated Creat Clear 33.88 33.88 Estimated GFR 35 35 ml/min Glucose 147 H 123 H (60-115) mg/dL Lactate 2.0 H (0.5-1.9) mmol/L Calcium 8.8 8.4 (8.4-10.6) mg/dL Magnesium 2.0 (1.5-2.6) mg/dL Total Bilirubin 0.7 (0.1-1.5) mg/dL AST 26 (12-35) U/L ALT 31 (4-50) U/L Alkaline Phosphatase 106 (40-150) U/L Troponin I < 0.01 L (0.01-0.04) ng/mL C-Reactive Protein 2.8 H (0.5-1.0) mg/dL NT-Pro-B Natriuret Pep 5220 6240 pg/mL Total Protein 7.1 (6.0-8.3) g/dL Albumin 3.7 (3.3-5.0) g/dL SARS-CoV-2 (PCR) Negative SARS-CoV-2 (Negative) Influenza Type A (PCR) Negative PCR FLU A (Negative) Influenza Type B (PCR) Negative PCR FLU B (Negative) Discharge Plan Discharge Clinical Impression: CHF (congestive heart failure), Chronic kidney disease, Pleural effusion Patient Disposition: Admitted As Observation
[2023-11-13] MEDS: polyethylene glycoL 3350 17 GM PACK PO (15:02)
[2023-11-13 15:37] LABS: Mononuclear WBC Body Fluid* 79 %; Polynuclear WBC Body Fluid* 21 %; RBC, Body Fluid* 30000 Cells/uL; WBC, Body Fluid* 160 Cells/uL
[2023-11-13 15:44] LABS: BF Total Volume* 110
[2023-11-13 15:45] LABS: BF Clarity* Cloudy; BF Color Blood Tinged
[2023-11-13 16:02] LABS: Albumin Body Fluid* 1.3 gm/dL; Amylase Body Fluid* < 30 U/L; Body Fluid Total Protein* 2.9 gm/dL; Cholesterol Body Fluid* < 50 mg/dL; Glucose Body Fluid* 139 mg/dL; LDH Body Fluid* 122 U/L
[2023-11-13 16:05] LABS: pH Body Fluid* 7.5
[2023-11-13] MEDS: BENZOCAINE/MENTHOL 1 EACH LOZENGE MUCOUS MEM (17:49)
[2023-11-13 17:55] LABS: Hemoglobin* 9.5 gm/dL (13.5-17.5)
[2023-11-13 18:14] LABS: Albumin* 3.6 g/dL (3.3-5.0)
[2023-11-13 18:16] LABS: INR 1.61 (0.91-1.10); Prothrombin Time 20.3 Seconds
[2023-11-13 18:17] LABS: Bilirubin Total* 0.5 mg/dL (0.1-1.5); Cholesterol* 90 mg/dL (90-199); Lactate Dehydrogenase* 259 U/L (120-246); Total Protein* 6.9 g/dL (6.0-8.3)
--- NOTE | 2023-11-13 18:24 | PC.NURSE ---
End Of Shift Note: Patient had a thoracentesis this afternoon at bedside with Dr. Bergman. He tolerated this well. They were able to get almost a liter of fluid off. Asked if he felt his breathing was better after the procedure and he states He can't really tell yet. His O2 sat was 95%. Did complain of a dry cough gave him a throat lozenge to see if this would help his cough. Will continue to monitor.
[2023-11-13] MEDS: ACETAMINOPHEN 325 MG TABLET PO (20:23)
[2023-11-13] MEDS: SODIUM CHLORIDE 0.9 % (FLUSH) 10 ML SYRINGE 5 ML IVF (20:24)
[2023-11-13] MEDS: TAMSULOSIN HCL 0.4 MG CAPSULE PO (20:24)
[2023-11-13] MEDS: ATORVASTATIN CALCIUM 40 MG TABLET 80 MG PO (20:24)
[2023-11-13] MEDS: guaiFENesin 100 MG/ML CUP PO (22:08)
[2023-11-14 03:00] VITALS: BP 114/69; PULSE 84; RESP 20; TEMP 36.7; O2SAT 93
--- NOTE | 2023-11-14 05:54 | PC.NURSE ---
[id number] Pt slept well during night, denies sob, difficutly or pain with breathing. productive moist cough noted, clear thin secretions. Pt posterior L lobes with course crackles throughout.
[2023-11-14 07:00] VITALS: BP 131/77; PULSE 88; RESP 18; TEMP 36.6; O2SAT 97
[2023-11-14 07:19] LABS: HCO3 VBG 36 mmol/L (21-28); PCO2 VBG 55 mmHG (40-50); PO2 VBG 32.9 mmHG (25-47); pH VBG 7.422 (7.32-7.43)
[2023-11-14 07:20] LABS: Basophils Absolute Auto 0.02 K/uL (0.00-0.30); Basophils Percent Auto 0.3 % (0.0-3.0); Eosinophils Absolute Auto 0.08 K/uL (0.00-0.50); Eosinophils Percent Auto 1.2 % (0.0-7.0); Hematocrit 32.9 % (37.0-53.0); Hemoglobin* 9.9 gm/dL (13.5-17.5); Lymphocytes Percent Auto 15.7 % (20-44); Mean Corpuscular HGB Conc 30 gm/dL (32-36); Mean Corpuscular Hemoglobin 28 pg (26-34); Mean Corpuscular Volume 93 fL (80-100); Monocytes Percent Auto 10.3 % (0.0-11.0); Neutrophils Percent Auto 72.5 % (42.0-72.0); Platelet Count* 229 K/uL (140-440); RDW Coefficient of Variation % 14.4 % (11.5-15.5); Red Blood Count 3.55 m/uL (4.30-5.90); White Blood Count* 6.61 K/uL (4.50-11.00)
[2023-11-14 07:24] LABS: Slide Review Reflex No
[2023-11-14 07:39] LABS: Chloride* 98 mmol/L (96-114); Potassium* 4.6 mmol/L (3.6-5.1); Sodium* 137 mmol/L (135-149)
[2023-11-14 07:42] LABS: Anion Gap 4 mEq/L (7-15); Carbon Dioxide* 35 mmol/L (20-32); Creatinine* 2.5 mg/dL (0.5-1.5); Estimated Glomerular Filt Rate 27 ml/min; Gamma Glutamyl Transpeptidase* 42 U/L (8-55)
[2023-11-14 07:43] LABS: Blood Urea Nitrogen* 37 mg/dL (7-30); Calcium* 8.7 mg/dL (8.4-10.6); Glucose* 116 mg/dL (60-115); Magnesium* 2.1 mg/dL (1.5-2.6)
[2023-11-14] MEDS: FINASTERIDE 5 MG TABLET PO (08:57)
[2023-11-14] MEDS: FERROUS SULFATE 325 MG TABLET PO (08:57)
[2023-11-14] MEDS: ROPINIROLE HCL 1 MG TABLET 0.5 MG PO (08:57)
[2023-11-14] MEDS: SODIUM CHLORIDE 0.9 % (FLUSH) 10 ML SYRINGE 5 ML IVF (08:57)
[2023-11-14] MEDS: METOPROLOL SUCCINATE (XL) 50 MG TAB PO (08:58)
[2023-11-14] MEDS: ASPIRIN 81 MG TAB.CHEW PO (08:58)
[2023-11-14] MEDS: FUROSEMIDE 40 MG TABLET 60 MG PO (08:58)
[2023-11-14] MEDS: SPIRONOLACTONE 25 MG TABLET PO (08:58)
[2023-11-14] MEDS: SENNOSIDES/DOCUSATE TABLET 1 TAB PO (08:58)
[2023-11-14] MEDS: ENOXAPARIN 100 MG/ML INJ 90 MG SUBCUT (08:59)
[2023-11-14] MEDS: glipiZIDE 2.5 MG ER TAB PO (08:59)
--- NOTE | 2023-11-14 12:20 | PC.NURSE ---
Discharge Note: Went over discharge instructions with patient and his . All questions have been answered. Did discuss the lovenox injection and either his will do the injection or a friend that is a nurse will help them out.
--- NOTE | 2023-11-14 12:56 | P.DS_ITS ---
DS: Providers Provider Date Seen: 11/14/23 Date of admission: 11/09/23 08:56 Primary care physician: Rowena Reddy MD Admitting Clinician: Vicki Kwok MD Consults: General Surgery for thoracentesis Attending Physician on discharge: Jossie Lee MD Date of Discharge: 11/14/23 DS: Diagnosis Discharge Diagnosis (1) CHF (congestive heart failure): Status: Acute Problem details: -acutely worsened after AV replacement 09/19/23, history of grade 1 diastolic dysfunction in August 2023 -TTE results on 11/09 reassuring (see below), pleural effusions likely source of symptoms (GALARZA, orthopnea, edema, PND) -improved with restarting Metoprolol (sinus tachycardia on admission), diuresis (transitioned from IV to 60mg oral Lasix BID + 25mg Qd Spironolactone on 11/11), thora -reviewed with Dr. Sloan of [facility] 11/11: given reassuring TTE, ascites/pleural effusion likely also related to renal disease - TTE obtained 11/09/23: Final Impressions: 1. Normal LV size, normal wall thickness, normal function with an estimated EF of 60 - 65%. 2. Right ventricular cavity size is normal, global systolic RV function is moderately reduced. 3. Mildly enlarged left atrium. 4. The aortic valve is mechanical On-X AVR, no stenosis and no regurgitation. EOA 2.4cm2, MG 4mmHg. 5. Small - moderate pericardial effusion w/ no echo evidence of tamponade. 6. L sided pleural effusion, likely significant. (2) Pleural effusion: Status: Acute Problem details: - noted on admission CXR 11/08 unchanged left greater than right basilar pleural effusions with adjacent compressive atelectasis - persistent on imaging 11/11 - symptoms include orthopnea, PND, GALARZA - Thoracentesis with Dr. Bergman of General Surgery on 11/13, 900mL out, fluid analysis c/w transudate as expected (3) Chronic kidney disease, stage 4 (severe): Status: Chronic Problem details: -creatinine 2.0 on admission 11/08 (appears to be baseline for him), up to 2.4 on 11/12 -avoid nephrotoxic medications, monitor closely in setting of IV diuresis -followed by Dr. Villalobos, [facility] -discussed with Dr. Can of [facility] on 11/12; continue to follow creatinine, no changes to current medications, close outpatient Nephrology f/u (4) Paroxysmal atrial fibrillation: Status: Acute Problem details: - s/p MAZE on 09/19/23 at [facility] - had been off of Metoprolol post-procedure; restarted 11/09 given evidence of CHF exacerbation and sinus tachycardia - remained in sinus rhythm throughout stay (5) History of aortic valve replacement: Status: Acute Problem details: - s/p mechanical aortic valve replacement at [facility] 10/04 (on life-long warfarin) - discharging on Lovenox bridge (Coumadin was bridged for thoracentesis) (6) Chronic anticoagulation: Status: Chronic Problem details: -INR goal 2-3, mechanical aortic valve, life-long -pharmacy to manage Coumadin dosing (on hold with Lovenox bridge as of 11/11 for anticipated thoracentesis) (7) Ascites: Status: Acute Problem details: - incidentally noted on outpatient renal ultrasound 11/08, no history of this, LFTs wnl - ultrasound 11/11: 1. Non cirrhotic liver morphology. 2. No solid liver lesion by ultrasound. (8) Type 2 diabetes mellitus: Status: Chronic Problem details: -diagnosed 2011, A1c 6.4 in July -continue glipizide. Metformin discontinued prior to surgery in September -diabetic diet, glucose checks ACHS. (9) Anemia of chronic disease: Status: Chronic Problem details: -chronic, per patient. Normocytic. Peripheral smear 11/03 revealed acanthocytes, c/w anemia of iron deficiency as well as anemia of chronic disease -hemoglobin 10.1 on admission, previously 10.3 -has appointment with [facility] in November (10) CAD (coronary artery disease): Status: Chronic Problem details: - Hx CABG x1 and aortic valve replacement 09/19/23 at [facility] (11) BPH (benign prostatic hyperplasia): Status: Chronic Problem details: - continue home doses of finasteride and tamsulosin (12) Essential hypertension: Status: Chronic Problem details: - restarted Metoprolol on 11/09/23 given concurrent tachycardia, appropriate BP control during stay (13) Hyperlipidemia: Status: Chronic Problem details: -continue statin DS: Summary Hospital Course Hospital Course: David was admitted to the hospital on 11/08 for acute fluid overload and progressive dyspnea, presumably 2/2 CHF exacerbation. On day of admission, he was also noted to have an incidental finding of ascites on outpatient renal ultrasound, and ER imaging revealed B pleural effusions, L>R. Admitted for IV diuresis, transitioned to oral Furosemide on 11/10. Will be discharged on oral Furosemide BID with Spironolactone once/day. Recommend daily weights and BMP during f/u with PCP next week. TTE reassuring, pleural effusions persistent. While he did not require inpatient supplemental oxygen, David remained symptomatic during stay with orthopnea, PND, GALARZA. Given pleural effusion, Coumadin was held (on this for mechanical valve), bridged with Lovenox, successful thoracentesis with Dr. Bergman of General Surgery on 11/13. Comorbidities include CKD, DM2, paroxysmal atrial fibrillation s/p MAZE, aortic valve replacement September 2023, anemia (details above). On day of discharge: Creatinine 2.5 (baseline around 2.0), follows with Dr. Villalobos of [facility]. BG 113-199 Hgb 9-10 during stay (baseline), no evidence of acute bleeding. Chronic anemia, has appt scheduled to f/u with [facility]. Status at Discharge Functional status at discharge: independent ambulation Overall status at discharge: patient is progressing back to baseline Time Spent with Patient Time attestation: Total time spent providing and/or coordinating discharge services: Time spent: Greater than 30 minutes Specific discharge activities: Medication management, reconciliation, INR f/u Exam Narrative: Exam Narrative: GEN: Alert and oriented, sitting at edge of bed HEENT: Normal external ears, EOMIs bilaterally, no scleral icterus CV: Sinus rhythm, click from AV R: Intermittent coughing, no wheezing, air movement adequate, no dyspnea at rest Ext: +BLE edema wearing Silviano hose Skin: No concerning skin lesions or rashes on exposed skin Neuro: No focal deficits Psych: Appropriate Const: Vital Signs, click to edit/add: Vital Signs - 24 hr 11/13/23 15:00 11/13/23 15:00 11/13/23 20:15 Temperature 98.6 F 98.5 F Pulse Rate [Pulse Oximeter] 82 86 Respiratory Rate 20 24 Blood Pressure [Ri ght Arm] 122/78 122/81 Pulse Oximetry 95 95 93 Oxygen Delivery Me thod Room Air Room Air Room Air 11/13/23 23:00 11/13/23 23:00 11/13/23 23:00 Temperature 98.2 F Pulse Rate [Pulse Oximeter] 86 80 Respiratory Rate 24 18 18 Blood Pressure [Ri ght Arm] 118/72 Pulse Oximetry 96 96 Oxygen Delivery Me thod Room Air Room Air 11/14/23 03:00 11/14/23 07:00 11/14/23 07:00 Temperature 98.1 F 97.8 F Pulse Rate [Pulse Oximeter] 84 88 Respiratory Rate 20 18 Blood Pressure [Ri ght Arm] 114/69 131/77 Pulse Oximetry 93 97 97 Oxygen Delivery Me thod Room Air Room Air Room Air 11/14/23 07:00 Temperature Pulse Rate [Pulse Oximeter] Respiratory Rate 18 Blood Pressure [Ri ght Arm] Pulse Oximetry Oxygen Delivery Me thod DS: Data Data Completed and Pending Labs on day of discharge: Labs from last 24 hours 11/14/23 11/13/23 11/13/23 05:57 17:26 14:16 WBC 6.61 RBC 3.55 L Hgb 9.9 L 9.5 L Hct 32.9 L MCV 93 MCH 28 MCHC 30 L RDW Coeff of Mila 14.4 Plt Count 229 Neut % (Auto) 72.5 H Lymph % (Auto) 15.7 L [place] % (Auto) 10.3 Eos % (Auto) 1.2 Baso % (Auto) 0.3 Neut # (Auto) 4.80 Lymph # (Auto) 1.00 [place] # (Auto) 0.70 Eos # (Auto) 0.08 Baso # (Auto) 0.02 Abs Immat Gran (auto) 0.00 Imm/Tot Granulo (auto) 0.0 INR 1.61 H VBG pH 7.422 VBG pCO2 55 H VBG pO2 32.9 VBG HCO3 36 H Sodium 137 Potassium 4.6 Chloride 98 Carbon Dioxide 35 H Anion Gap 4 L BUN 37 H Creatinine 2.5 H Estimated Creat Clear 27.10 Estimated GFR 27 Glucose 116 H Calcium 8.7 Magnesium 2.1 Total Bilirubin 0.5 GGT 42 Lactate Dehydrogenase 259 H Total Protein 6.9 Albumin 3.6 Cholesterol 90 Fluid Volume 110 Fluid Color Blood Tinged A Fluid Appearance Cloudy A Fluid pH 7.5 Fluid WBC 160 Fluid RBC 63089 Fluid Polynuclear WBCs 21 Fluid Mononuclear WBCs 79 Fluid Glucose 139 Fluid Total Protein 2.9 Fluid Albumin 1.3 Fluid LDH 122 Fluid Amylase < 30 Fluid Cholesterol < 50 Preliminary micro results at discharge 11/13/23 14:16 Body Fluid Culture - Preliminary Pleural Fluid Culture in Progress Discharge Plan Discharge Disposition: Home, Self-Care Date of Admission: 11/09/23 08:56 Attending Provider on Discharge: Jossie Lee Primary Care Provider: Rowena Reddy Condition: Improved Anticipated Discharge Date/Time: 11/14/23 13:00 Discharge Medications: New furosemide 40 mg Tablet 60 mg PO BID@0800,1400 Qty: 90 0RF Rx Instructions: may substitute with 20mg tabs to make dosing easier - needs 60mg BID metoprolol succinate 50 mg Tablet Extended Release 24 Hr 50 mg PO DAILY Qty: 30 3RF spironolactone 25 mg Tablet 25 mg PO DAILY Qty: 30 0RF enoxaparin [Lovenox] 100 mg/mL syringe 90 mg subcut Q12H 3 Days Qty: 5.4 0RF Rx Instructions: please send patient with SIX doses - thanks Continued finasteride 5 mg tablet 5 mg PO DAILY atorvastatin 80 mg tablet 80 mg PO DAILY tamsulosin 0.4 mg capsule 0.4 mg PO DAILY ferrous sulfate 325 mg (65 mg iron) tablet 325 mg PO QAM ropinirole 0.5 mg tablet 0.5 mg PO 3XD mecobalamin (vitamin B12) PO DAILY cholecalciferol (vitamin D3) 2,000 unit PO DAILY aspirin 81 mg tablet,chewable 81 mg PO DAILY warfarin 1 mg tablet 2 mg PO QHS glipizide 2.5 mg tablet extended release 24hr 2.5 mg PO DAILY Qty: 90 1RF Discharge Orders: Discharge Order (Routine); Ordered 11/14/23 Ordered By: Jossie Lee Patient Education: Metoprolol (By mouth), Spironolactone (By mouth), Furosemide (By mouth), Enoxaparin (By injection), Heart Failure (DC) Additional Instructions: New medications/dosages: 1. LASIX (FUROSEMIDE): 60mg twice/day (first dose upon awakening, 2nd dose around 2pm) - diuretic 2. SPIRONOLACTONE: 25mg in the morning - diuretic 3. METOPROLOL: 50mg once/day (morning or night) - helps with heart rate control 4. LOVENOX: 90mg every 12 hours (morning and night) until INR back above 2 Next dose of Coumadin tonight at home. Come in tomorrow morning for INR at the hospital - I will call you with results and plan. Use your Incentive Spirometer at home (breathing apparatus from [facility]) 3-4 times/day to help with breathing/cough. Walk a little each day to help with endurance; good idea to try Cardiac Rehab on Sunday. See Maureen as scheduled on 11/19, then see [facility] (Cardiology, Nephrology, Hematology) in followup. Activity Level: No strenuous activity Discharge Diet: Heart Healthy (2 gm sodium, low fat) Follow Up Appointments: Rowena Reddy MD [Primary Care Provider] - 11/15/23 10:15 am (Keep appt that is already scheduled on 11/[address] Reddy Patient has appointment on 11/15 for INR (at 10:15) ) Forms: [employer] Info Instructions
--- NOTE | 2023-11-15 13:36 | P.EN_ITS ---
Chart Event Note Time Seen by Provider: 13:36 Date Seen: 11/15/23 Chart Event Note: Patient underwent thoracentesis [address] Bergman. He returned to get an INR check. He was noted to have bleeding from the site. This started this morning and resulted in soilage of his shirt. INR is pending On exam he has ecchymosis around the thoracentesis site with a very small hematoma. This is superficial. There is no deeper hematoma. Blood was present on the patient's bandage. This appears to be coming from an opening of the glue over the wound. The glue was removed. There was a small amount of bleeding from the lateral skin edge noted. This was quite minimal, however the patient is on Coumadin and therefore his clotting ability is limited. After discussing with the patient, he verbally consented to injection of local anesthetic and placement of a stitch. The area was cleansed with chlorhexidine. 1% lidocaine was injected into the skin around the incision. A 4-0 Monocryl [id number] stitch was placed. This resulted in excellent hemostasis. A dressing was a pplied
[2023-11-15 14:16] LABS: INR 1.61 (0.91-1.10); Prothrombin Time 20.3 Seconds
--- NOTE | 2023-11-15 14:45 | P.CCN_ITS ---
Subjective Subjective Interval history: Patient presented to hospital for INR after discharge yesterday. He is a bridging with Lovenox and has restarted his warfarin, POD 2 from diagnostic/therapeutic thoracentesis. He has noted some oozing from the thoracentesis site; Dr. Corrigan assessed and placed 1 absorbable suture. Patient is otherwise feeling well. Objective Objective Data Details: Breathing comfortably, mild oozing from thoracentesis site, completely hemostatic after suture placement by General surgery Assessment and Plan Assessment and plan (1) History of aortic valve replacement: Problem comment: s/p mechanical aortic valve replacement at [facility] 10/04 (on life-long warfarin) Status: Acute Plan - continue daily Warfarin + BID Lovenox - repeat INR on 11/17 (ordered) - updated with plan, verbalized understanding
== END 2023-11-14 11:15 | disposition home or self-care (01) | DRG 291 ==
LOC: ED 17:51 → MEDSURG 18:26
PROVIDERS: Family Medicine; Physician Assistant; Surgery; Admitting Provider Internal Medicine; Emergency Provider Emergency Medicine; PCP Internal Medicine; Visit Provider Internal Medicine
DX: I13.0 Hypertensive heart and chronic kidney disease with heart failure and stage 1 through stage 4 chronic kidney disease, or unspecified chronic kidney disease (principal); I50.33 Acute on chronic diastolic (congestive) heart failure; N18.4 Chronic kidney disease, stage 4 (severe); R18.8 Other ascites; J91.8 Pleural effusion in other conditions classified elsewhere; J98.11 Atelectasis; E11.22 Type 2 diabetes mellitus with diabetic chronic kidney disease; Z79.84 Long term (current) use of oral hypoglycemic drugs; Z79.01 Long term (current) use of anticoagulants; I48.0 Paroxysmal atrial fibrillation; D63.1 Anemia in chronic kidney disease; D50.9 Iron deficiency anemia, unspecified; I97.0 Postcardiotomy syndrome; I25.10 Atherosclerotic heart disease of native coronary artery without angina pectoris; Z95.1 Presence of aortocoronary bypass graft; Z95.2 Presence of prosthetic heart valve; G25.81 Restless legs syndrome; E78.5 Hyperlipidemia, unspecified; N40.0 Benign prostatic hyperplasia without lower urinary tract symptoms; Z86.73 Personal history of transient ischemic attack (TIA), and cerebral infarction without residual deficits
CPT/HCPCS: 32555; 36415; 71045; 71046; 76705; 76775; 80048; 80053; 82040; 82042; 82150; 82247; 82465; 82803; 82945; 82962; 82977; 83605; 83615; 83735; 83880; 83986; 84100; 84155; 84157; 84311; 84443; 84484; 85018; 85025; 85027; 85610; 86140; 87015; 87070; 87102; 87116; 87205; 87631; 88112; 88305; 89051; 93306; 94761; 99284; 99285; G0378; A9270; J1650; J1940; J2405

== ENCOUNTER 2023-11-16 09:41 | Emergency (ER) | payer MEDICARE, SELFPAY ==
[2023-11-16 09:49] VITALS: BP 122/71; PULSE 92; RESP 18; TEMP 37.1; O2SAT 96; BMI 28.5
--- NOTE | 2023-11-16 10:14 | ED.GENADULT ---
HPI - General Adult General Chief complaint: Skin/Abscess/Foreign Body Stated complaint: Incision bleeding--on thinners Time Seen by Provider: 11/16/23 09:52 Source: patient Mode of arrival: ambulatory Limitations: no limitations History of Present Illness HPI narrative: 73-year-old male presenting today with bleeding from his incision. Patient had a thoracentesis done on 11/14. He presented on 11/15 with bleeding from his incision site. At that time a suture was placed. He states that this morning he woke up and there was blood all over his shirt. His states that he continues to bleed however, the bleeding has slowed down considerably. Patient denies feeling more lightheaded or dizzy than his baseline. He is not more short of breath. In fact he does feel better after the thoracentesis and continues to feel that way. Patient is on Coumadin for a mechanical valve and atrial fibrillation, INR was 1.6 yesterday. Related Data Home Medications Medication Instructions Recorded Confirmed aspirin 81 mg chewable tablet 81 mg PO DAILY 10/18/23 11/16/23 atorvastatin 80 mg tablet 80 mg PO DAILY 10/18/23 11/16/23 cholecalciferol (vitamin D3) 2,000 unit PO DAILY 10/18/23 11/16/23 ferrous sulfate 325 mg (65 mg 325 mg PO QAM 10/18/23 11/16/23 iron) tablet finasteride 5 mg tablet 5 mg PO DAILY 10/18/23 11/16/23 mecobalamin (vitamin B12) PO DAILY 10/18/23 10/31/23 ropinirole 0.5 mg tablet 0.5 mg PO 3XD 10/18/23 11/16/23 tamsulosin 0.4 mg capsule 0.4 mg PO DAILY 10/18/23 11/16/23 warfarin 1 mg tablet 2 mg PO QHS 10/18/23 11/16/23 Previous Rx's Medication Instructions Recorded glipizide 2.5 mg tablet, extended 2.5 mg PO DAILY #90 tabs 11/06/23 release 24 hr enoxaparin 100 mg/mL subcutaneous 90 mg (0.9 mL) subcut Q12H 3 days 11/14/23 syringe (Lovenox) #5.4 mL furosemide 40 mg tablet 60 mg (1.5 x 40 mg) PO 11/14/23 BID@0800,1400 #90 tabs metoprolol succinate 50 mg 50 mg PO DAILY #30 tabs 11/14/23 tablet,extended release 24 hr spironolactone 25 mg tablet 25 mg PO DAILY #30 tabs 11/14/23 Allergies Allergy/AdvReac Type Severity Reaction Status Date / Time No Known Drug Allergies Allergy Verified 11/16/23 09:49 Review of Systems Status of ROS: Reports: 6 or more systems reviewed and unremarkable except as noted in History and below [facility] Chronic anticoagulation ?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 (ICD-10) Chronic kidney disease, stage 4 (severe) ?N18.4 - Chronic kidney disease, stage 4 (severe) (ICD-10) Hyperlipidemia ?E78.5 - Hyperlipidemia, unspecified (ICD-10) Type 2 diabetes mellitus ?E11.9 - Type 2 diabetes mellitus without complications (ICD-10) Anemia of chronic disease ?D63.8 - Anemia in other chronic diseases classified elsewhere (ICD-10) Paroxysmal atrial fibrillation ?I48.0 - Paroxysmal atrial fibrillation (ICD-10) CAD (coronary artery disease) ?I25.10 - Atherosclerotic heart disease of [place] coronary artery without angina pectoris (ICD-10) RLS (restless legs syndrome) ?G25.81 - Restless legs syndrome (ICD-10) BPH (benign prostatic hyperplasia) ?N40.0 - Benign prostatic hyperplasia without lower urinary tract symptoms (ICD-10) Essential hypertension ?I10 - Essential (primary) hypertension (ICD-10) Surgical History History of aortic valve replacement ?Z95.2 - Presence of prosthetic heart valve (ICD-10) History of coronary artery bypass graft x 1 ?Z95.1 - Presence of aortocoronary bypass graft (ICD-10) History of colonoscopy ?Z98.890 - Other specified postprocedural states (ICD-10) History of skin cancer ?Z85.828 - Personal history of other malignant neoplasm of skin (ICD-10) Family History Son Aortic valve replaced Bicuspid aortic valve Brother Alzheimers disease Daughter Bicuspid aortic valve Maternal Grandfather Diabetes Myocardial infarction Heart disease Father Heart disease Mother Lymphoma Paternal Grandfather Prostate cancer Social History What is your current living situation?: I presently have a place to live Problems where you live: no known problems Problems where you live details: None In the past 12 months, utilities in danger of being shut off: no In past 12 months, lack of transportation kept you from medical appts, meetings, work, or getting things needed for daily living: no In the past 12 mos, have been you worried that your food would run out before you had money to buy more?: never true In the past 12 mos, the food you bought just didn't last and you didn't have money to buy more?: never true Are you following a diet prescribed by a doctor: No (Reports he is supposed to follow a low sodium, diabetic diet.) Are you following a special diet: No Highest level of school completed/degree received: some college, no degree Smoking Status: Never smoker How often do you have a drink containing alcohol: never AUDIT-C Alcohol total score: 0 Non-prescribed substance use: denies use Caffeine: Yes (1 cup a day) How often does anyone, including family, friends and others, physically hurt you: never How often does anyone, including family, friends and others, insult or talk down to you: never How often does anyone, including family, friends and others, threaten you with harm: never How often does anyone, including family, friends and others, scream or curse at you: never service: No Exam Narrative: Exam Narrative: Thin, elderlypatient in no acute distress. Alert and oriented. Answers questions appropriately. Mood and affect are appropriate. Thoughts are goal oriented and rational. No tangential or magical thinking noted. Patient speaks in full sentences without needing to catch his breath. HEENT: Normocephalic atraumatic. Pupils are equally round reactive to light. Extraocular muscles are intact. Conjunctivae are moist without any icterus noted. Moist mucous membranes. back: Area thoracentesis has a suture in place there was a very slow ooze coming from the center of the incision. He has a small area of surrounding ecchymosis, no evidence of a hematoma. Const: Vital Signs, click to edit/add: Vital Signs - 24 hr 11/16/23 09:49 Temperature 98.7 F Pulse Rate [Pulse Oximeter] 92 Respiratory Rate 18 Blood Pressure [Ri ght Upper Arm] 122/71 Pulse Oximetry 96 Oxygen Delivery Me thod Room Air Course Course ED Course: I did speak to Dr. Corrigan who placed his suture yesterday. She recommended placing another suture. I discussed this with the patient. Patient did not want another suture placed. His felt that simply putting a pressure dressing would be sufficient as the bleeding was so slow and had slowed considerably even since this morning. Therefore, a pressure dressing was placed. Vital Signs Vital signs: Initial Vital Signs Temperature 98.7 F 11/16/23 09:49 Temperature Source Temporal Artery Scan 11/16/23 09:49 Pulse Rate 92 11/16/23 09:49 Respiratory Rate 18 11/16/23 09:49 Blood Pressure 122/71 11/16/23 09:49 Blood Pressure Mean 88 11/16/23 09:49 Blood Pressure Position Sitting 11/16/23 09:49 Pulse Oximetry 96 11/16/23 09:49 Oxygen Delivery Method Room Air 11/16/23 09:49 Vital Signs Temperature 98.7 F 11/16/23 09:49 Pulse Rate 92 11/16/23 09:49 Respiratory Rate 18 11/16/23 09:49 Blood Pressure 122/71 11/16/23 09:49 Pulse Oximetry 96 11/16/23 09:49 Oxygen Delivery Method Room Air 11/16/23 09:49 Temperature 98.7 F 11/16/23 09:49 Pulse Rate 92 11/16/23 09:49 Respiratory Rate 18 11/16/23 09:49 Blood Pressure 122/71 11/16/23 09:49 Pulse Oximetry 96 11/16/23 09:49 Oxygen Delivery Method Room Air 11/16/23 09:49 Medical Decision Making MDM Narrative Medical decision making narrative: Postoperative bleeding treated per above. Follow-up with surgical team as scheduled. Discharge Plan Discharge Clinical Impression: Post-op bleeding Patient Disposition: Home, Self-Care Condition: Stable Additional Instructions: follow-up with your care team as scheduled. If bleeding increases, return for another suture placement. Prescriptions: No Action finasteride 5 mg tablet 5 mg PO DAILY atorvastatin 80 mg tablet 80 mg PO DAILY tamsulosin 0.4 mg capsule 0.4 mg PO DAILY ferrous sulfate 325 mg (65 mg iron) tablet 325 mg PO QAM ropinirole 0.5 mg tablet 0.5 mg PO 3XD mecobalamin (vitamin B12) PO DAILY cholecalciferol (vitamin D3) 2,000 unit PO DAILY aspirin 81 mg tablet,chewable 81 mg PO DAILY warfarin 1 mg tablet 2 mg PO QHS furosemide 40 mg Tablet 60 mg PO BID@0800,1400 Qty: 90 0RF Rx Instructions: may substitute with 20mg tabs to make dosing easier - needs 60mg BID metoprolol succinate 50 mg Tablet Extended Release 24 Hr 50 mg PO DAILY Qty: 30 3RF spironolactone 25 mg Tablet 25 mg PO DAILY Qty: 30 0RF enoxaparin [Lovenox] 100 mg/mL syringe 90 mg subcut Q12H 3 Days Qty: 5.4 0RF Rx Instructions: please send patient with SIX doses - thanks glipizide 2.5 mg tablet extended release 24hr 2.5 mg PO DAILY Qty: 90 1RF Follow Up/Referrals: Rowena Reddy MD [Primary Care Provider] - Stand Alone Forms: MyHealth Info Instructions
--- NOTE | 2023-11-16 10:15 | ED.NURSE ---
Incision site dressed with bacitracin, 4x4 gauze, ABD pad, and held in place with 6 LEATHA wrap. Patient tolerated well, no questions/concerns.
== END 2023-11-16 10:29 | disposition home or self-care (01) ==
PROVIDERS: Emergency Provider Family Medicine; PCP Internal Medicine
DX: L76.22 Postprocedural hemorrhage of skin and subcutaneous tissue following other procedure (principal)
CPT/HCPCS: 99283

== ENCOUNTER 2023-11-17 10:50 | Emergency (ER) | payer MEDICARE, SELFPAY ==
[2023-11-17 11:00] VITALS: BP 109/73; PULSE 96; RESP 18; TEMP 37.4; O2SAT 93; BMI 28.6
[2023-11-17 11:20] LABS: Basophils Absolute Auto 0.01 K/uL (0.00-0.30); Basophils Percent Auto 0.1 % (0.0-3.0); Eosinophils Absolute Auto 0.07 K/uL (0.00-0.50); Hematocrit 31.7 % (37.0-53.0); Hemoglobin* 9.5 gm/dL (13.5-17.5); Immature Granulocytes Abs Auto 0.02 K/uL (0.00-0.30); Immature Granulocytes Pct Auto 0.3 %; Lymphocytes Percent Auto 8.8 % (20-44); Mean Corpuscular HGB Conc 30 gm/dL (32-36); Mean Corpuscular Hemoglobin 28 pg (26-34); Mean Corpuscular Volume 93 fL (80-100); Monocytes Percent Auto 9.5 % (0.0-11.0); Neutrophils Percent Auto 80.3 % (42.0-72.0); Platelet Count* 216 K/uL (140-440); RDW Coefficient of Variation % 14.8 % (11.5-15.5); Red Blood Count 3.42 m/uL (4.30-5.90); White Blood Count* 7.08 K/uL (4.50-11.00)
--- NOTE | 2023-11-17 11:22 | ED_ITS ---
HPI - General Adult General Chief complaint: Unspecified Complaint, Adult Stated complaint: wound on his back actively bleeding Time Seen by Provider: 11/17/23 10:54 History of Present Illness HPI narrative: Patient follows up for bleeding from his thoracentesis site. He had a stitch pl aced couple days ago, some glue is placed as well. Continues to bleed through the area. He has had open-heart surgery in a postop effusion. His breathing has been better. He has got a small amount of drainage and bleeding through the thoracentesis site. Dr. Cox had put a stitch in it in the past Related Data Home Medications Medication Instructions Recorded Confirmed aspirin 81 mg chewable tablet 81 mg PO DAILY 10/18/23 11/16/23 atorvastatin 80 mg tablet 80 mg PO DAILY 10/18/23 11/16/23 cholecalciferol (vitamin D3) 2,000 unit PO DAILY 10/18/23 11/16/23 ferrous sulfate 325 mg (65 mg 325 mg PO QAM 10/18/23 11/16/23 iron) tablet finasteride 5 mg tablet 5 mg PO DAILY 10/18/23 11/16/23 mecobalamin (vitamin B12) PO DAILY 10/18/23 10/31/23 ropinirole 0.5 mg tablet 0.5 mg PO 3XD 10/18/23 11/16/23 tamsulosin 0.4 mg capsule 0.4 mg PO DAILY 10/18/23 11/16/23 warfarin 1 mg tablet 2 mg PO QHS 10/18/23 11/16/23 Previous Rx's Medication Instructions Recorded glipizide 2.5 mg tablet, extended 2.5 mg PO DAILY #90 tabs 11/06/23 release 24 hr enoxaparin 100 mg/mL subcutaneous 90 mg (0.9 mL) subcut Q12H 3 days 11/14/23 syringe (Lovenox) #5.4 mL furosemide 40 mg tablet 60 mg (1.5 x 40 mg) PO 11/14/23 BID@0800,1400 #90 tabs metoprolol succinate 50 mg 50 mg PO DAILY #30 tabs 11/14/23 tablet,extended release 24 hr spironolactone 25 mg tablet 25 mg PO DAILY #30 tabs 11/14/23 Allergies Allergy/AdvReac Type Severity Reaction Status Date / Time No Known Drug Allergies Allergy Verified 11/16/23 09:49 Review of Systems Status of ROS: Reports: 6 or more systems reviewed and unremarkable except as noted in History and below [facility] Chronic anticoagulation ?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 (ICD-10) Chronic kidney disease, stage 4 (severe) ?N18.4 - Chronic kidney disease, stage 4 (severe) (ICD-10) Hyperlipidemia ?E78.5 - Hyperlipidemia, unspecified (ICD-10) Type 2 diabetes mellitus ?E11.9 - Type 2 diabetes mellitus without complications (ICD-10) Anemia of chronic disease ?D63.8 - Anemia in other chronic diseases classified elsewhere (ICD-10) Paroxysmal atrial fibrillation ?I48.0 - Paroxysmal atrial fibrillation (ICD-10) CAD (coronary artery disease) ?I25.10 - Atherosclerotic heart disease of [place] coronary artery without angina pectoris (ICD-10) RLS (restless legs syndrome) ?G25.81 - Restless legs syndrome (ICD-10) BPH (benign prostatic hyperplasia) ?N40.0 - Benign prostatic hyperplasia without lower urinary tract symptoms (ICD-10) Essential hypertension ?I10 - Essential (primary) hypertension (ICD-10) Surgical History History of aortic valve replacement ?Z95.2 - Presence of prosthetic heart valve (ICD-10) History of coronary artery bypass graft x 1 ?Z95.1 - Presence of aortocoronary bypass graft (ICD-10) History of colonoscopy ?Z98.890 - Other specified postprocedural states (ICD-10) History of skin cancer ?Z85.828 - Personal history of other malignant neoplasm of skin (ICD-10) Family History Son Aortic valve replaced Bicuspid aortic valve Brother Alzheimers disease Daughter Bicuspid aortic valve Maternal Grandfather Diabetes Myocardial infarction Heart disease Father Heart disease Mother Lymphoma Paternal Grandfather Prostate cancer Social History What is your current living situation?: I presently have a place to live Problems where you live: no known problems Problems where you live details: None In the past 12 months, utilities in danger of being shut off: no In past 12 months, lack of transportation kept you from medical appts, meetings, work, or getting things needed for daily living: no In the past 12 mos, have been you worried that your food would run out before you had money to buy more?: never true In the past 12 mos, the food you bought just didn't last and you didn't have money to buy more?: never true Are you following a diet prescribed by a doctor: No (Reports he is supposed to follow a low sodium, diabetic diet.) Are you following a special diet: No Highest level of school completed/degree received: some college, no degree Smoking Status: Never smoker How often do you have a drink containing alcohol: never AUDIT-C Alcohol total score: 0 Non-prescribed substance use: denies use Caffeine: Yes (1 cup a day) How often does anyone, including family, friends and others, physically hurt you : never How often does anyone, including family, friends and others, insult or talk down to you: never How often does anyone, including family, friends and others, threaten you with harm: never How often does anyone, including family, friends and others, scream or curse at you: never service: No Exam Narrative: Exam Narrative: Objective: Vital signs are largely unremarkable and within normal limits He has got his thoracentesis site on the left posterior lateral chest wall left that is got a little bit of bleeding there is still this stitch intact from Dr. Cox, appears to be bleeding on both sides next to the stitch. The patient is on Lovenox and Coumadin. He had an INR checked today. They wish to have a hemoglobin 10 done today as well. No evidence of redness or infection Const: Vital Signs, click to edit/add: Vital Signs - 24 hr 11/17/23 11:00 11/17/23 11:52 Temperature 99.3 F 99 F Pulse Rate [Pulse Oximeter] 96 Respiratory Rate 18 Blood Pressure [Ri ght Upper Arm] 109/73 Pulse Oximetry 93 Oxygen Delivery Me thod Room Air Course Vital Signs Vital signs: Initial Vital Signs Temperature 99.3 F 11/17/23 11:00 Temperature Source Temporal Artery Scan 11/17/23 11:00 Pulse Rate 96 11/17/23 11:00 Respiratory Rate 18 11/17/23 11:00 Blood Pressure 109/73 11/17/23 11:00 Blood Pressure Mean 85 11/17/23 11:00 Blood Pressure Position Sitting 11/17/23 11:00 Pulse Oximetry 93 11/17/23 11:00 Oxygen Delivery Method Room Air 11/17/23 11:00 Vital Signs Temperature 99.3 F 11/17/23 11:00 Pulse Rate 96 11/17/23 11:00 Respiratory Rate 18 11/17/23 11:00 Blood Pressure 109/73 11/17/23 11:00 Pulse Oximetry 93 11/17/23 11:00 Oxygen Delivery Method Room Air 11/17/23 11:00 Temperature 99 F 11/17/23 11:52 Pulse Rate 96 11/17/23 11:00 Respiratory Rate 18 11/17/23 11:00 Blood Pressure 109/73 11/17/23 11:00 Pulse Oximetry 93 11/17/23 11:00 Oxygen Delivery Method Room Air 11/17/23 11:00 Medical Decision Making [facility] Narrative Medical decision making narrative: 73-year-old male several days out from thoracentesis with persistent bleeding from his thoracentesis site. He even despite 1 stitch I think he needs a couple more. Not optimal to close at this late juncture but I think there is no other option to stop the bleeding at this point. He also had glue attempted not did not seem to hold. After sterile scrub 1% xylocaine injected for anesthesia to 3-0 simple hep Ethilon sutures were placed on each side of the prior stitch in the middle and had good hemostasis no further bleeding. The patient is given INR pending this morning. They wish a hemoglobin done we can call him with results. This will be covered in tape. They should leave the tape on the covering on until tomorrow and then they can take it often redressed Lab Data Labs: Lab Results 11/17/23 11/17/23 Range/Units 10:49 11:11 WBC 7.08 (4.50-11.00) K/uL RBC 3.42 L (4.30-5.90) m/uL Hgb 9.5 L (13.5-17.5) gm/dL Hct 31.7 L (37.0-53.0) % MCV 93 (80-100) fL MCH 28 (26-34) pg MCHC 30 L (32-36) gm/dL RDW Coeff of Mila 14.8 (11.5-15.5) % Plt Count 216 (140-440) K/uL Neut % (Auto) 80.3 H (42.0-72.0) % Lymph % (Auto) 8.8 L (20-44) % [place] % (Auto) 9.5 (0.0-11.0) % Eos % (Auto) 1.0 (0.0-7.0) % Baso % (Auto) 0.1 (0.0-3.0) % Neut # (Auto) 5.70 (1.7-7.0) K/uL Lymph # (Auto) 0.60 L (0.90-2.90) K/uL [place] # (Auto) 0.70 (0.00-0.90) K/UL Eos # (Auto) 0.07 (0.00-0.50) K/uL Baso # (Auto) 0.01 (0.00-0.30) K/uL Abs Immat Gran (auto) 0.02 (0.00-0.30) K/uL Imm/Tot Granulo (auto) 0.3 % INR 1.60 H (0.91-1.10) Discharge Plan Discharge Clinical Impression: Post-op bleeding Patient Disposition: Home w/ Parent or Adult Condition: Improved Additional Instructions: Keep dressing on until tomorrow, then may take off and redressed and cover with a bandage. Suture removal in 7 days. Watch for redness infection. Return sooner bleeding or problems Activity Level: Light activity Discharge Diet: Regular Prescriptions: No Action finasteride 5 mg tablet 5 mg PO DAILY atorvastatin 80 mg tablet 80 mg PO DAILY tamsulosin 0.4 mg capsule 0.4 mg PO DAILY ferrous sulfate 325 mg (65 mg iron) tablet 325 mg PO QAM ropinirole 0.5 mg tablet 0.5 mg PO 3XD mecobalamin (vitamin B12) PO DAILY cholecalciferol (vitamin D3) 2,000 unit PO DAILY aspirin 81 mg tablet,chewable 81 mg PO DAILY warfarin 1 mg tablet 2 mg PO QHS furosemide 40 mg Tablet 60 mg PO BID@0800,1400 Qty: 90 0RF Rx Instructions: may substitute with 20mg tabs to make dosing easier - needs 60mg BID metoprolol succinate 50 mg Tablet Extended Release 24 Hr 50 mg PO DAILY Qty: 30 3RF spironolactone 25 mg Tablet 25 mg PO DAILY Qty: 30 0RF enoxaparin [Lovenox] 100 mg/mL syringe 90 mg subcut Q12H 3 Days Qty: 5.4 0RF Rx Instructions: please send patient with SIX doses - thanks glipizide 2.5 mg tablet extended release 24hr 2.5 mg PO DAILY Qty: 90 1RF Follow Up/Referrals: Rowena Reddy MD [Primary Care Provider] - Stand Alone Forms: [employer] Info Instructions
[2023-11-17 11:26] LABS: Slide Review Reflex No
[2023-11-17 11:31] LABS: Prothrombin Time 20.1 Seconds
--- NOTE | 2023-11-17 11:45 | ED.NURSE ---
Sutures dressed with bacitracin, 4x4, ABD pad, taped in place. There is a slight hematoma noted around sutures, advised that they might see some drainage from this. Patient will have sutures removed in clinic in 7 days. Informed patient/ of hemoglobin results from today's draw. No questions/concerns, patient discharged to home accompanied by .
[2023-11-17 11:52] VITALS: TEMP 37.2
--- NOTE | 2023-11-17 15:50 | P.EN_ITS ---
Chart Event Note Date Seen: 11/17/23 Chart Event Note: Phone call with patient and his today regarding anticoagulation. Patient was seen in the emergency department earlier today. INR 1.6. Patient had prosthetic aortic valve replacement in September 2023. He had been on warfarin for anticoagulation with a goal INR of 2-3. He was admitted to the hospital here where he had a thoracentesis and his warfarin was temporarily held. He did not have reversal of his anticoagulation that I can determine. His INR was 1.6 on November 13 and November 15 and again today. His warfarin dose is 2 mg daily. He is bridging with Lovenox 90 mg subcutaneously b.i.d.. His creatinine clearance is 27. My recommendation today is that he continue to bridge with Lovenox at a renal dose of 100 mg once a day. Increase warfarin to 3 mg daily pending INR in [address] with appointment [address] Dr. Reddy. Prescription for Lovenox 100 mg daily, 3., called to [facility] [phone]
== END 2023-11-17 11:51 | disposition home or self-care (01) ==
LOC: ED 11:30
PROVIDERS: Family Medicine; Emergency Provider Family Medicine; PCP Internal Medicine
DX: J95.830 Postprocedural hemorrhage of a respiratory system organ or structure following a respiratory system procedure (principal)
CPT/HCPCS: 12001; 36415; 85025; 85610; 99283

== ENCOUNTER 2023-11-29 13:36 | Outpatient (CLI) | payer MEDICARE, SELFPAY ==
--- OUTSIDE RECORDS SUMMARY | 2023-12-04 12:08 | XMS_ITS | Clinical Summary ---
Author Name Unknown Organization [facility] [employer] [facility] Address [place], [place] [address] Care Team Providers Care Reimbursement Rep Name Role Phone Kylah Crum [facility] Primary Care Provider Medications No known medications Encounters Date Type Department Care Team Description 12/03/2023 11:24 AM PAINT SPRAYER SANDBLASTER - 12/03/2023 11:59 PM PAINT SPRAYER SANDBLASTER Hospital Encounter [address] [address] Yadira Ashton MD 12/03/2023 Travel 11/30/2023 11:19 AM PAINT SPRAYER SANDBLASTER - 11/30/2023 11:59 PM PAINT SPRAYER SANDBLASTER Hospital Encounter [address] [address] Yadira Ashton MD 11/30/2023 Travel 11/28/2023 10:07 AM PAINT SPRAYER SANDBLASTER - 11/28/2023 11:59 PM PAINT SPRAYER SANDBLASTER Hospital Encounter [address] [address] Yadira Ashton MD 11/28/2023 Travel 11/23/2023 11:30 AM PAINT SPRAYER SANDBLASTER - 11/23/2023 11:59 PM PAINT SPRAYER SANDBLASTER Hospital Encounter [address] [address] Yadira Ashton MD 11/23/2023 Travel 11/21/2023 11:26 AM PAINT SPRAYER SANDBLASTER - 11/21/2023 11:59 PM PAINT SPRAYER SANDBLASTER Hospital Encounter [facility] [address] [place] [address] Yadira Ashton MD 11/21/2023 Travel 11/14/2023 Lab Requisition [facility] [phone] Jossie Lee MD 11/09/2023 4:00 PM PAINT SPRAYER SANDBLASTER Orders Only [facility] [address] [place] [address] 3 scans: (3-Ord) ECHO TTE COMPLETE WO CONTRAST ([id number]) 11/07/2023 11:25 AM PAINT SPRAYER SANDBLASTER - 11/07/2023 11:59 PM PAINT SPRAYER SANDBLASTER Hospital Encounter [facility] [address] [place] [address] Yadira Ashton MD 11/07/2023 Travel 11/02/2023 11:30 AM PAINT SPRAYER SANDBLASTER - 11/02/2023 11:59 PM PAINT SPRAYER SANDBLASTER Hospital Encounter [facility] [address] [place] [address] Yadira Ashton MD 11/02/2023 Travel 10/29/2023 11:20 AM PAINT SPRAYER SANDBLASTER - 10/29/2023 11:59 PM PAINT SPRAYER SANDBLASTER Hospital Encounter [facility] [address] [place] [address] Yadira Ashton MD 10/29/2023 Travel 10/26/2023 11:30 AM PAINT SPRAYER SANDBLASTER - 10/26/2023 11:59 PM PAINT SPRAYER SANDBLASTER Hospital Encounter [facility] [address] [place] [address] Yadira Ashton MD 10/26/2023 Travel 10/24/2023 11:30 AM PAINT SPRAYER SANDBLASTER - 10/24/2023 11:59 PM PAINT SPRAYER SANDBLASTER Hospital Encounter [facility] [address] [facility] [place] [address] Yadira Ashton MD 10/24/2023 Travel 10/22/2023 11:30 AM PAINT SPRAYER SANDBLASTER - 10/22/2023 11:59 PM PAINT SPRAYER SANDBLASTER Hospital Encounter [facility] [address] [place] [address] Yadira Ashton MD 10/22/2023 Travel 10/19/2023 11:25 AM PAINT SPRAYER SANDBLASTER - 10/19/2023 11:59 PM PAINT SPRAYER SANDBLASTER Hospital Encounter [facility] [address] [place] [address] Yadira Ashton MD 10/19/2023 Travel 10/18/2023 Lab Requisition [facility] [phone] Rowena Reddy MD 10/17/2023 11:27 AM PAINT SPRAYER SANDBLASTER - 10/17/2023 11:59 PM PAINT SPRAYER SANDBLASTER Hospital Encounter [facility] [address] [place] [address] Yadira Ashton MD 10/17/2023 Travel 10/12/2023 11:09 AM PAINT SPRAYER SANDBLASTER - 10/12/2023 11:59 PM PAINT SPRAYER SANDBLASTER Hospital Encounter [facility] [address] [place] [address] Yadira Ashton MD 10/12/2023 Travel 10/10/2023 11:30 AM PAINT SPRAYER SANDBLASTER - 10/10/2023 11:59 PM PAINT SPRAYER SANDBLASTER Hospital Encounter [facility] [address] [place] [address] Yadira Ashton MD 10/10/2023 Travel 10/08/2023 11:30 AM PAINT SPRAYER SANDBLASTER - 10/08/2023 11:59 PM PAINT SPRAYER SANDBLASTER Hospital Encounter [facility] [address] [place] [address] Yadira Ashton MD 10/08/2023 Travel 10/03/2023 3:07 PM PAINT SPRAYER SANDBLASTER - 10/03/2023 6:12 PM PAINT SPRAYER SANDBLASTER Emergency [facility] [address] [place] [address] Ankita Torres MD Weakness (Primary Dx) Discharge Disposition: Home Self Care 10/03/2023 3:00 PM PAINT SPRAYER SANDBLASTER Office Visit [facility] [address] [place] [address] Batsheva Perez NP Sob 10/03/2023 1:30 PM PAINT SPRAYER SANDBLASTER - 10/03/2023 3:06 PM PAINT SPRAYER SANDBLASTER Hospital Encounter [facility] [address] [facility] [place] [address] 10/03/2023 Travel from Last 3 Months Social History Tobacco Use Types Packs/Day Years Used Date Smoking Tobacco: Never Assessed Sex and Gender Information Value Date Recorded Sex Assigned at Not on file Gender Identity Not on file Sexual Orientation Not on file Obstetrics History Last Filed Vital Signs Vital Sign Reading Time Taken Comments Blood Pressure 107/69 10/03/2023 4:23 PM PAINT SPRAYER SANDBLASTER Pulse 84 10/03/2023 4:23 PM PAINT SPRAYER SANDBLASTER Temperature 36.8 ??C (98.2 ??F) 10/03/2023 3:16 PM CS T Respiratory Rate 20 10/03/2023 3:16 PM PAINT SPRAYER SANDBLASTER Oxygen Saturation 98% 10/03/2023 4:23 PM PAINT SPRAYER SANDBLASTER Inhaled Oxygen Concentration - - Weight 90.7 kg (200 lb) 10/03/2023 3:08 PM PAINT SPRAYER SANDBLASTER Height 172.7 cm (5' 8) 10/03/2023 3:08 PM PAINT SPRAYER SANDBLASTER Body Mass Index 30.41 10/03/2023 3:08 PM PAINT SPRAYER SANDBLASTER Plan of Treatment Upcoming Encounters Date Type Department Care Team (Late st Contact Info) Description 12/05/2023 11:30 AM PAINT SPRAYER SANDBLASTER Appointment [facility] [address] [place] [address] 12/07/2023 11:30 AM PAINT SPRAYER SANDBLASTER Appointment [facility] [address] [place] [address] 12/10/2023 11:30 AM PAINT SPRAYER SANDBLASTER Appointment [facility] [address] [place] [address] 12/12/2023 11:30 AM PAINT SPRAYER SANDBLASTER Appointment [facility] [address] [place] [address] 12/14/2023 11:30 AM PAINT SPRAYER SANDBLASTER Appointment [facility] [address] [place] [address] 12/17/2023 11:30 AM PAINT SPRAYER SANDBLASTER Appointment [facility] [address] [facility] [place] [address] 12/19/2023 11:30 AM PAINT SPRAYER SANDBLASTER Appointment [facility] [address] [facility] [place] [address] 12/21/2023 11:30 AM PAINT SPRAYER SANDBLASTER Appointment [facility] [address] [facility] [place] [address] 12/24/2023 11:30 AM PAINT SPRAYER SANDBLASTER Appointment [facility] [address] [place] [address] 12/26/2023 11:30 AM PAINT SPRAYER SANDBLASTER Appointment [facility] [address] [facility] [place] [address] 12/28/2023 11:30 AM PAINT SPRAYER SANDBLASTER Appointment [facility] [address] [place] [address] 12/31/2023 11:30 AM PAINT SPRAYER SANDBLASTER Appointment [facility] [address] [facility] [place] [address] 01/02/2024 11:30 AM PAINT SPRAYER SANDBLASTER Appointment [facility] [address] [facility] [place] [address] 01/04/2024 11:30 AM PAINT SPRAYER SANDBLASTER Appointment [facility] [address] [place] [address] 01/07/2024 11:30 AM PAINT SPRAYER SANDBLASTER Appointment [facility] [address] [place] [address] 01/09/2024 11:30 AM PAINT SPRAYER SANDBLASTER Appointment [facility] [address] [place] [address] 01/11/2024 11:30 AM PAINT SPRAYER SANDBLASTER Appointment [facility] [address] [facility] [place] [address] 01/14/2024 11:30 AM PAINT SPRAYER SANDBLASTER Appointment [facility] [address] [place] [address] 01/16/2024 11:30 AM PAINT SPRAYER SANDBLASTER Appointment [facility] [address] [place] [address] Health Maintenance Due Date Last Done Comments COVID-19 vaccine series (#1) 1952 Tdap 1963 Depression screening for age 12+ 1964 BMI (ht and wt on same day) for age 18+ 1970 Hepatitis C screening for age 18-79 1970 Tetanus booster 1972 Colonoscopy through age 75 1997 Lipids for age 45-75 1997 Zoster (shingles) series for age 50+ (1 of 2) 05/19/20 02 Medicare Wellness for age 65+ 2017 Pneumococcal series for age 65+ (1 of 1 - PCV) 017 Influenza for age 65+ 07/13/2023 Procedures Procedure Name Priority Date/Time Associated Diagnosis Comments SCAN-CARDIAC REHABILITATION 12/03/2023 11:29 AM PAINT SPRAYER SANDBLASTER SCAN-CARDIAC REHABILITATION 11/30/2023 11:23 AM PAINT SPRAYER SANDBLASTER SCAN-CARDIAC REHABILITATION 11/28/2023 11:12 AM PAINT SPRAYER SANDBLASTER SCAN-CARDIAC REHABILITATION 11/23/2023 11:41 AM PAINT SPRAYER SANDBLASTER SCAN-CARDIAC REHABILITATION 11/21/2023 11:34 AM PAINT SPRAYER SANDBLASTER LAB TRACKING EVENT Routine 11/13/2023 2: 08 PM PAINT SPRAYER SANDBLASTER PATH NON SHEEP FARMER CYTOLOGY Routine 11/13/2023 2:08 PM PAINT SPRAYER SANDBLASTER ECHO TTE COMPLETE WO CONTRAST Routine 11/09/2023 5:15 PM PAINT SPRAYER SANDBLASTER Fluid retention GALARZA (dyspnea on exertion) GLUCOSE METER Routine 11/07/2023 11:31 AM PAINT SPRAYER SANDBLASTER SCAN-CARDIAC REHABILITATION 11/07/2023 11:29 AM PAINT SPRAYER SANDBLASTER GLUCOSE METER Routine 11/02/2023 12:14 PM PAINT SPRAYER SANDBLASTER SCAN-CARDIAC REHABILITATION 11/02/2023 11:39 AM PAINT SPRAYER SANDBLASTER GLUCOSE METER Routine 11/02/2023 11:38 AM PAINT SPRAYER SANDBLASTER GLUCOSE METER Routine 10/29/2023 12:25 PM PAINT SPRAYER SANDBLASTER SCAN-CARDIAC REHABILITATION 10/29/2023 11:25 AM PAINT SPRAYER SANDBLASTER GLUCOSE METER Routine 10/29/2023 11:24 AM PAINT SPRAYER SANDBLASTER SCAN-CARDIAC REHABILITATION 10/26/2023 11:45 AM PAINT SPRAYER SANDBLASTER SCAN-CARDIAC REHABILITATION 10/24/2023 11:39 AM PAINT SPRAYER SANDBLASTER SCAN-CARDIAC REHABILITATION 10/24/2023 11:39 AM PAINT SPRAYER SANDBLASTER SCAN-CARDIAC REHABILITATION 10/22/2023 11:43 AM PAINT SPRAYER SANDBLASTER SCAN-CARDIAC REHABILITATION 10/19/2023 11:30 AM PAINT SPRAYER SANDBLASTER PERIPHERAL BLD MORPHOLOGY Routine 10/18/2023 3:24 PM PAINT SPRAYER SANDBLASTER LAB TRACKING EVENT Routine 10/18/2023 2: 50 PM PAINT SPRAYER SANDBLASTER GLUCOSE METER Routine 10/17/2023 12:19 PM PAINT SPRAYER SANDBLASTER GLUCOSE METER Routine 10/17/2023 11:37 AM PAINT SPRAYER SANDBLASTER SCAN-CARDIAC REHABILITATION 10/17/2023 11:33 AM PAINT SPRAYER SANDBLASTER GLUCOSE METER Routine 10/12/2023 12:21 PM PAINT SPRAYER SANDBLASTER SCAN-CARDIAC REHABILITATION 10/12/2023 11:21 AM PAINT SPRAYER SANDBLASTER GLUCOSE METER Routine 10/12/2023 11:20 AM PAINT SPRAYER SANDBLASTER SCAN-CARDIAC REHABILITATION 10/10/2023 11:36 AM PAINT SPRAYER SANDBLASTER SCAN-CARDIAC REHABILITATION 10/08/2023 11:43 AM PAINT SPRAYER SANDBLASTER URINE CULTURE STAT 10/03/2023 6:00 PM PAINT SPRAYER SANDBLASTER UA W/ SEDIMENT EXAM REFLEXED PER CRITERIA Today 10/03/2023 6:00 PM PAINT SPRAYER SANDBLASTER BLOOD CULTURE STAT 10/03/2023 5:41 PM PAINT SPRAYER SANDBLASTER TROPONIN T (HS) ONE TIME Timed 10/03/2023 5:41 PM PAINT SPRAYER SANDBLASTER BLOOD CULTURE STAT 10/03/2023 5:35 PM PAINT SPRAYER SANDBLASTER XR CHEST 1 VIEW PORTABLE STAT 10/03/2023 4:29 PM PAINT SPRAYER SANDBLASTER COVID-19 MOLECULAR STAT 10/03/2023 4: 15 PM PAINT SPRAYER SANDBLASTER INFLUENZA A/B PCR STAT 10/03/2023 4:1 5 PM PAINT SPRAYER SANDBLASTER CBC WITH AUTO DIFFERENTIAL STAT 10/03/2023 4:00 PM PAINT SPRAYER SANDBLASTER PROTIME-INR STAT 10/03/2023 4:00 PM PAINT SPRAYER SANDBLASTER TROPONIN T (HS) ACUTE W/2HR REFLEX STAT 10/03/2023 4:00 PM PAINT SPRAYER SANDBLASTER PRO-BNP STAT 10/03/2023 4:00 PM PAINT SPRAYER SANDBLASTER COMP METABOLIC PANEL STAT 10/03/2023 4:00 PM PAINT SPRAYER SANDBLASTER CBC WITH AUTO DIFFERENTIAL STAT 10/03/2023 4:00 PM PAINT SPRAYER SANDBLASTER EKG 12 LEAD STAT 10/03/2023 3:46 PM PAINT SPRAYER SANDBLASTER GLUCOSE METER Routine 10/03/2023 2:36 PM PAINT SPRAYER SANDBLASTER SCAN-CARDIAC REHABILITATION 10/03/2023 2:31 PM PAINT SPRAYER SANDBLASTER from Last 3 Months Results * SCAN-CARDIAC REHABILITATION (12/03/2023 11:29 AM PAINT SPRAYER SANDBLASTER) Only the most recent of18 resultswithin the time period is included. Scanner OTHER * LAB TRACKING EVENT (11/13/2023 2:08 PM PAINT SPRAYER SANDBLASTER) Only the most recent of2 resultswithin the time period is included. Other (Other) Client Collect / Unknown 11/13/2023 2:08 PM PAINT SPRAYER SANDBLASTER 11/14/2023 8:59 PM PAINT SPRAYER SANDBLASTER Jossie Lee MD LAB BILL ONLY [facility] [address] [place] [address], * PATH NON SHEEP FARMER CYTOLOGY (11/13/2023 2:08 PM PAINT SPRAYER SANDBLASTER) Case Report Medical Cytology Report ? Case: [id number] ? Authorizing Provider: ??Jossie Lee MD ?Collected: ? 11/13/2023 1408 ? Ordering Location: ? [facility] ?Received: ?11/15/2023 0746 ? Pathologist: ? Bere Garza MD ? Specimen: ?Pleural Fluid ? 11/16/2023 9:11 AM [facility] Final Diagnosis A) PLEURAL FLUID (SIDE NOT SPECIFIED) FOR CYTOLOGY: Negative for malignancy 11/16/2023 9:11 AM [facility] Clinical Information 73-year-old male status post CABG with shortness of breath and pleural effusion. 11/16/2023 9:11 AM [facility] Gross Description A) SOURCE: Pleural fluid The specimen consists of 22 cc of dark orange cloudy fluid from which the following is prepared: ? -1 DiffQuik stained slide ? -1 Papanicolaou stained ThinPrep slide ? -1 H&E stained cell block slide A2 Cell block material was placed in formalin at 1028 on 11/15/23 and fixed in formalin at least 6 hours and no more than 72 hours. 11/16/2023 9:11 AM PAINT SPRAYER SANDBLASTER [facility] Microscopic Description Specimen adequacy: Adequate for interpretation. All slides were reviewed. The microscopic appearance substantiates the diagnosis. 11/16/2023 9:11 AM PAINT SPRAYER SANDBLASTER [facility] Additional Information Cytology is screened at [facility] - [address], [place] [address] and [facility] - [address], [place] [address] and [facility] - [address] [place] [address] Interpreted at [facility] - [address], [place] [address] 11/16/2023 9:11 AM PAINT SPRAYER SANDBLASTER [facility] Other PLEURAL FLUID SPECIMEN / Unknown 11/13/2023 2:08 PM PAINT SPRAYER SANDBLASTER 11/15/2023 7:46 AM PAINT SPRAYER SANDBLASTER Jossie Lee MD PATHOLOGY/CYTOLOGY [facility] [address] [place] [address], [place] * ECHO TTE COMPLETE WO CONTRAST (11/09/2023 5:15 PM PAINT SPRAYER SANDBLASTER) AORTIC VALVE MEAN PG 4 mmHg EJECTION FRACTION 63 % LVEDD 3.8 cm EJECTION FRACTION 60 - 65% Anatomical Region Laterality Modality Ultrasound 11/09/2023 3:40 PM PAINT SPRAYER SANDBLASTER Narrative 11/11/2023 7:58 AM PAINT SPRAYER SANDBLASTER ECHOCARDIOGRAM MIRIAN Emilia ROGER ?Accession#: ?? [id number] : ?1950 73 years Study Date: ?? 11/09/2023 3:40:14 PM Gender: M ? BP: ? 130/88 mmHg Height: 175.00 cm ? BSA: ?2.07 m? ? ? Weight: 91.00 kg ?Tech: ? MJS ?Referring MD: ELDON GARCIA Site: ? [facility] Reading Location: [facility] Patient Location: Inpatient. Procedure: 2D, Color Doppler and Spectral Doppler. Indication for study: EDEMA/ D.O.E./ CABG 23 MM ON-X MECHANICAL AV Cardiac Rhythm: Normal sinus.Study quality: Good. Final Impressions: 1. Normal LV size, normal wall thickness, normal function with an estimated EF of 60 - 65%. 2. Right ventricular cavity size is normal, global systolic RV function is moderately reduced. 3. Mildly enlarged left atrium. 4. The aortic valve is mechanical On-X AVR, no stenosis and no regurgitation. EOA 2.4cm2, MG 4mmHg. 5. Small - moderate pericardial effusion w/ no echo evidence of tamponade. 6. L sided pleural effusion, likely significant. Chamber Sizes and Function Normal left ventricular size, normal wall thickness, normal global systolic function with an estimated EF of 60 - 65%. Left atrial size is mildly enlarged. Right ventricular cavity size is normal, global systolic RV function is moderately reduced. The right atrium is normal. The pulmonary artery is of normal size and origin. The sinus of Valsalva is normal sized. The ascending aorta is normal sized. Valves, RV Pressures and Diastolic Function The aortic valve is mechanical On-X replacement, no stenosis and no regurgitation. The mitral valve is normal in structure, trace mitral regurgitation. Indeterminate pattern of LV diastolic filling. The tricuspid valve is normal in structure. Tricuspid regurgitation is regurgitation is not evident. The pulmonic valve is normal. No pulmonary regurgitation. TTE images do not appear adequate for transcather intervention with patient supine. Masses, Effusion, Shunts There is moderate pericardial effusion. The inferior vena cava is normal sized, respiratory size variation greater than 50%. No left to right shunting was detected by limited color flow Doppler interrogation of the interatrial septum. MEASUREMENTS AND CALCULATIONS 2-D Measurements and LV Function: LVID (d) 3.8 cm LV FS% (2D) ?? 44 % LVID (s) 2.1 cm LVOT diameter 2.2 cm IVS (d) ??1.2 cm HR ?88 bpm LVPW (d) 1.2 cm LA Vol index ??25 ml/m2 Ao Sinus 3.2 cm RV Max 4C (d) 3.1 cm Asc Ao ?? 3.7 cm LA ? 4.1 cm Diastology: Mitral E Peak 1.0 m/s A Peak 0.5 m/s E/A ?2.0 DT ? 175 msec Aortic Valve: Vmax ? 1.2 m/s ??JOANA (V) ?? 2.42 cm? ? ? VTI ?0.24 m ?? JOANA (I) ?? 2.45 cm? ? ? LVOT V max 0.7 m/s ??Max PG ?6 mmHg LVOT VTI ?? 0.15 m ?? Mean PG ?? 4 mmHg SV ? 59 ml ?Dim Index 0.63 SV index ?? 29 ml/m? ? ? CO ?5.2 l/min ?CI ?2.5 l/min/m? ? ? Mitral Valve: MVA ?4.3 cm? ? ? MV P 1/2 51 msec Tricuspid Valve and estimated PA pressures: TAPSE 1.2 cm . This study was interpreted by an [facility] accredited facility. CC: HIM (med records) [facility], Med/Surg - IP [facility]. ??Final ?? Procedure Note Home Baeza MD - 11/11/2023 ECHOCARDIOGRAM MIRIAN DURAN : 1950 73 years Study Date: 11/09/2023 3:40:14 PM Gender: M BP: 130/88 mmHg Height: 175.00 cm BSA: 2.07 m? ? ? Weight: 91.00 kg Tech: ZITA Referring MD: ELDON GARCIA Site: [facility] Reading Location: [facility] Patient Location: Inpatient. Procedure: 2D, Color Doppler and Spectral Doppler. Indication for study: EDEMA/ D.O.E./ CABG 23 MM ON-X MECHANICAL AV Cardiac Rhythm: Normal sinus.Study quality: Good. Final Impressions: 1. Normal LV size, normal wall thickness, normal function with anestimated EF of 60 - 65%. 2. Right ventricular cavity size is normal, global systolic RV functionis moderately reduced. 3. Mildly enlarged left atrium. 4. The aortic valve is mechanical On-X AVR, no stenosis and noregurgitation. EOA 2.4cm2, MG 4mmHg. 5. Small - moderate pericardial effusion w/ no echo evidence oftamponade. 6. L sided pleural effusion, likely significant. Chamber Sizes and Function Normal left ventricular size, normal wall thickness, normal globalsystolic function with an estimated EF of 60 - 65%. Left atrial size ismildly enlarged. Right ventricular cavity size is normal, global systolicRV function is moderately reduced. The right atrium is normal. Thepulmonary artery is of normal size and origin. The sinus of Valsalva isnormal sized. The ascending aorta is normal sized. Valves, RV Pressures and Diastolic Function The aortic valve is mechanical On-X replacement, no stenosis and noregurgitation. The mitral valve is normal in structure, trace mitralregurgitation. Indeterminate pattern of LV diastolic filling. Thetricuspid valve is normal in structure. Tricuspid regurgitation isregurgitation is not evident. The pulmonic valve is normal. No pulmonaryregurgitation. TTE images do not appear adequate for transcatherintervention with patient supine. Masses, Effusion, Shunts There is moderate pericardial effusion. The inferior vena cava is normalsized, respiratory size variation greater than 50%. No left to rightshunting was detected by limited color flow Doppler interrogation of theinteratrial septum. MEASUREMENTS AND CALCULATIONS 2-D Measurements and LV Function: LVID (d) 3.8 cm LV FS% (2D) 44 % LVID (s) 2.1 cm LVOT diameter 2.2 cm IVS (d) 1.2 cm HR 88 bpm LVPW (d) 1.2 cm LA Vol index 25 ml/m2 Ao Sinus 3.2 cm RV Max 4C (d) 3.1 cm Asc Ao 3.7 cm LA 4.1 cm Diastology: Mitral E Peak 1.0 m/s A Peak 0.5 m/s E/A 2.0 DT 175 msec Aortic Valve: Vmax 1.2 m/s JOANA (V) 2.42 cm? ? ? VTI 0.24 m JOANA (I) 2.45 cm? ? ? LVOT V max 0.7 m/s Max PG 6 mmHg LVOT VTI 0.15 m Mean PG 4 mmHg SV 59 ml Dim Index 0.63 SV index 29 ml/m? ? ? CO 5.2 l/min CI 2.5 l/min/m? ? ? Mitral Valve: MVA 4.3 cm? ? ? MV P 1/2 51 msec Tricuspid Valve and estimated PA pressures: TAPSE 1.2 cm . This study was interpreted by an [facility] accredited facility. CC: HIM (med records) [facility], Med/Surg - IP [facility]. Final Eldon VAZQUEZ ECHO ORD * (ABNORMAL) GLUCOSE METER (11/07/2023 11:31 AM PAINT SPRAYER SANDBLASTER) Only the most recent of10 resultswithin the time period is included. [facility] Signature GLUCOSE METER 225(H) 65 - 100 mg/dL 11/07/2023 11:36 AM PAINT SPRAYER SANDBLASTER [facility] Blood BLOOD SPECIMEN / Unknown 11/07/2023 11:31 AM PAINT SPRAYER SANDBLASTER 11/07/2023 11:36 AM PAINT SPRAYER SANDBLASTER Yadira Ashton MD CHEMISTRY [facility] [address] [place] [id number] * PERIPHERAL BLD MORPHOLOGY (10/18/2023 3:24 PM PAINT SPRAYER SANDBLASTER) Case Report Special Hematology Report ? Case: [id number] ? Authorizing Provider: ??Rowena Reddy MD ?Collected: ? 10/18/2023 1524 ? Ordering Location: ? [facility] ?Received: ?10/19/2023 1022 ? Pathologist: ? Dl Silva, ? MD ? Specimen: ?Peripheral Blood ? 10/21/2023 8:27 AM [facility] Final Diagnosis PERIPHERAL BLOOD: 1. Mild normocytic anemia with acanthocytes (may be associated with renal and/or liver insufficiency) 2. See comment 10/21/2023 8:27 AM [facility] [employer] [facility] Comment The features of the anemia are nonspecific. The differential includes iron deficiency, anemia of chronic disease, anemia of renal insufficiency (eGFR = 32), anatomic blood loss and medication effect. There is no morphologic evidence of hemolysis. Clinical correlation is recommended. This case was also reviewed by Alysa Al MT, MS ([facility]). 10/21/2023 8:27 AM [facility] [employer] Clinical Information The patient is a 73-year-old male. As of 10/03/23 16:00 CREATININE: 2.16 (H) eGFR: ? 32 (L) 10/21/2023 8:27 AM [facility] [employer] CBC and Differential HEMATOLOGY PARAMETERS Tested at: ??[facility] - ? RESULTS ??EXPECTED VALUES WBC: ? 8.9 ?4.5-05b8242/cu mm ? RBC: ? 3.54 ? 4.30-5.90 mil/cumm ??DECREASED HGB: ? 10.3 ? 13.5-17.5 gm/di ? DECREASED HCT: ? 33.7 ? 37-53% ?DECREASED MCV: ? 95.0 ? 80-100 fl ? NORMOCYTIC MCH: ? 29.0 ? 26-34 pg ? MCHC: ?31.0 ? 32-36 gm/dl ? HYPOCHROMIC RDW: ? 13.8 ? 11.5-15.5% ? PLT: ? 299 ?140-739o1043/u L ? Differential ?Tested at: ??[facility] - ?Absolute (%) ?Expected (%) ?(x10*9/L) ? (x10*9/L) Neutrophils: ?6.9 (77.2) ?1.7-7.0 (42-72%) ? Lymphocytes: ?1 (11.2) ?0.9-2.9 (20-44%) ?? Monocytes: ?0.82 (9.2) ? <0.9 (0-11%) ? Eosinophils: ?0.16 (1.8) ? <0.5 (0-2%) ? Basophils: ?0.02 (.2) ?<0.3 (<3.0%) ? Imm Grans: ?0.03 (.3) ?<0.3 (0-3%) ? (Metas, Myelos,Pros) 10/21/2023 8:27 AM [facility] Microscopic Description The final diagnosis is based on microscopic examination of an appropriately stained blood smear. 10/21/2023 8:27 AM [facility]- ENTRAL LABORATORY Additional Information Interpreted at [facility], Central Laboratory - [address] [facility] [address], [place] [address] 10/21/2023 8:27 AM [facility] Blood (Peripheral Blood) 10/18/2023 3:24 PM PAINT SPRAYER SANDBLASTER 10/19/2023 10:22 AM PAINT SPRAYER SANDBLASTER Rowena Reddy MD HEMATOLOGY [facility] [address] [place] [address], [place] * URINE CULTURE (10/03/2023 6:00 PM PAINT SPRAYER SANDBLASTER) CULTURE No growth (<1,000 CFU/mL) 10/04/2023 3:02 PM PAINT SPRAYER SANDBLASTER [facility] Urine URINE SPECIMEN / Unknown Non-Blood / Unknown 10/03/2023 6:00 PM PAINT SPRAYER SANDBLASTER 10/03/2023 6:00 PM PAINT SPRAYER SANDBLASTER Ankita Torres MD MICROBIOL OGY [facility] [address] [place] [address], [place] * UA W/ SEDIMENT EXAM REFLEXED PER CRITERIA (10/03/2023 6:00 PM PAINT SPRAYER SANDBLASTER) COLOR Yellow Yellow Color 10/03/2023 6:05 PM [facility] CLARITY Clear Clear Clarity 10/03/2023 6:05 PM [facility] SPECIFIC GRAVITY,URINE 1.020 1.010, 1.015, 1.020, 1.025 10/03/2023 6:05 PM [facility] PH,URINE 5.5 6.0, 7.0, 8.0, 5.5, 6.5, 7.5, 8.5 10/03/2023 6:05 PM [facility] UROBILINOGEN, QUALITATIVE Normal Normal EU/dl 10/03/2023 6:05 PM [facility] PROTEIN, URINE Negative Negative mg/dL 10/03/2023 6:05 PM [facility] GLUCOSE, URINE Negative Negative mg/dL 10/03/2023 6:05 PM [facility] KETONES,URINE Negative Negative mg/dL 10/03/2023 6:05 PM [facility] BILIRUBIN,URI NE Negative Negative 10/03/2023 6:05 PM [facility] OCCULT BLOOD,URINE Negative Negative 10/03/2023 6:05 PM [facility] NITRITE Negative Negative 10/03/2023 6:05 PM [facility] LEUKOCYTE ESTERASE Negative Negative 10/03/2023 6:05 PM PAINT SPRAYER SANDBLASTER [facility] Urine URINE SPECIMEN / Unknown Non-Blood / Unknown 10/03/2023 6:00 PM PAINT SPRAYER SANDBLASTER 10/03/2023 6:00 PM PAINT SPRAYER SANDBLASTER Ankita Torres MD URINE Performing Organization Address [facility]/ZIP Co de Phone Number [facility] [address] [place] [address] * (ABNORMAL) TROPONIN T (HS) ONE TIME (10/03/2023 5:41 PM PAINT SPRAYER SANDBLASTER) TROPONIN T HS 225(H) 6-15 ng/L ng/L 10/03/2023 6:02 PM PAINT SPRAYER SANDBLASTER [facility] Blood BLOOD SPECIMEN / Unknown Butterfly / Unknown 10/03/2023 5:41 PM PAINT SPRAYER SANDBLASTER 10/03/2023 5:44 PM PAINT SPRAYER SANDBLASTER Ankita Torres MD CHEMISTRY Performing Organization Address [facility] Co de Phone Number [facility] [address] [place] [address] * BLOOD CULTURE (10/03/2023 5:41 PM PAINT SPRAYER SANDBLASTER) Only the most recent of2 resultswithin the time period is included. CULTURE No Growth. 10/09/2023 5:13 AM PAINT SPRAYER SANDBLASTER [facility] Blood BLOOD SPECIMEN / Unknown Butterfly / Unknown 10/03/2023 5:41 PM PAINT SPRAYER SANDBLASTER 10/03/2023 5:45 PM PAINT SPRAYER SANDBLASTER Narrative [facility] - 10/09/2023 5:13 AM PAINT SPRAYER SANDBLASTER Low volume blood culture received; possible false negative culture. Ankita Torres MD MICROBIOL OGY Performing Organization Address [facility]/ZIP Co de Phone Number [facility] [address] [place] [address] * XR CHEST 1 VIEW PORTABLE (10/03/2023 4:29 PM PAINT SPRAYER SANDBLASTER) Anatomical Region Laterality Modality HEART, THORAX, CHEST Digital Rad iography 10/03/2023 5:19 PM PAINT SPRAYER SANDBLASTER Narrative 10/03/2023 5:19 PM PAINT SPRAYER SANDBLASTER For Patients: ??As a result of the Cures Act, medical imaging exams and procedure reports are released immediately into your electronic medical record. ??You may view this report before your referring provider. ??If you have questions, please contact your health care provider. INDICATION: Shortness of breath TECHNIQUE: Chest 1 views. COMPARISON: None. FINDINGS/IMPRESSION: Postsurgical changes of median sternotomy. Cardiac loop recorder overlies the mediastinum. Cardiomegaly. No pulmonary vascular congestion. Minimal left basilar atelectasis/scarring. No focal airspace consolidation, pleural effusion, or pneumothorax. Dictated by Huy Smith MD @ 10/03/2023 5:19:17 PM (Electronically Signed) Procedure Note Huy Smith MD - 10/03/2023 For Patients: As a result of the Cures Act, medical imagingexams and procedure reports are released immediately into your electronicmedical record. You may view this report before your referring provider.If you have questions, please contact your health care provider. INDICATION: Shortness of breath TECHNIQUE: Chest 1 views. COMPARISON: None. FINDINGS/IMPRESSION: Postsurgical changes of median sternotomy. Cardiac loop recorder overliesthe mediastinum. Cardiomegaly. No pulmonary vascular congestion. Minimalleft basilar atelectasis/scarring. No focal airspace consolidation,pleural effusion, or pneumothorax. Dictated by Huy Smith MD @ 10/03/2023 5:19:17 PM (Electronically Signed) Anikta Torres MD GENERAL I ALEKS * COVID-19 MOLECULAR (10/03/2023 4:15 PM PAINT SPRAYER SANDBLASTER) COVID 19 [place] MOLECULAR Not detected Not detected 10/03/2023 5:01 PM [facility] TESTING LABORATORY [facility] 10/03/2023 5:01 PM [facility] Comment:Specimen submitted t o [facility] for testing. Other SPECIMEN FROM NASOPHARYNGEAL STRUCTURE / Unknown Non-Blood / Unknown 10/03/2023 4:15 PM PAINT SPRAYER SANDBLASTER 10/03/2023 4:23 PM PAINT SPRAYER SANDBLASTER Narrative [facility] - 10/03/2023 5:01 PM PAINT SPRAYER SANDBLASTER This test has been authorized by FDA under an Emergency Use Authorization (EUA). This test is only authorized for the duration of time the declaration that circumstances exist justifying the authorization of the emergency use of in vitro diagnostic tests for detection of SARS-CoV-2 virus and/or diagnosis of COVID-19 infection under section 564(b)(1) of the Act, 21 U.S.C. 360bbb-3(b) (1), unless the authorization is terminated or revoked sooner. Ankita Torres MD MICROBIOL OGY Performing Organization Address City/[facility]/ZIP Co de Phone Number [facility] [address] [place] [address] * INFLUENZA A/B PCR (10/03/2023 4:15 PM PAINT SPRAYER SANDBLASTER) Pathologist [facility] INFLUENZA A PCR NOT Detected 10/03/2023 5:01 PM PAINT SPRAYER SANDBLASTER [facility] INFLUENZA B PCR NOT Detected 10/03/2023 5:01 PM PAINT SPRAYER SANDBLASTER [facility] Other SPECIMEN FROM NASOPHARYNGEAL STRUCTURE / Unknown Non-Blood / Unknown 10/03/2023 4:15 PM PAINT SPRAYER SANDBLASTER 10/03/2023 4:23 PM PAINT SPRAYER SANDBLASTER Ankita Torres MD MICROBIOL OGY Performing Organization Address City/[facility]/ZIP Co de Phone Number [facility] [address] [place] [address] * (ABNORMAL) TROPONIN T (HS) ACUTE W/2HR REFLEX (10/03/2023 4:00 PM PAINT SPRAYER SANDBLASTER) TROPONIN T HS 244(H) 6-15 ng/L ng/L 10/03/2023 4:37 PM [facility] Blood BLOOD SPECIMEN / Unknown Butterfly / Unknown 10/03/2023 4:00 PM PAINT SPRAYER SANDBLASTER 10/03/2023 4:02 PM PAINT SPRAYER SANDBLASTER [facility] - 10/03/2023 4:37 PM PAINT SPRAYER SANDBLASTER hs-cTnT (Elecsys Troponin T Gen 5) concentration (s) above the sex-specific 99th percentile (16 ng/L or greater for males or 11 ng/L or greater for females) are indicative of myocardial injury. If initial hs-cTnT <=100 ng/L at presentation, a 0h/2h ABSOLUTE (ng/L) delta change (rising or falling) of >=10 ng/L suggests a significant change, whereas a 0h/2h delta change <=3 ng/L suggests no significant change. If initial hs-cTnT >100 ng/L at presentation, a 0h/2h/ RELATIVE (percent, %) delta change of 20% is suggested to distinguish patients with acute vs. chronic myocardial injury. There are multiple etiologies that can cause hs-cTnT increases above the 99th percentile (myocardial injury) other than acute myocardial infarction. Clinical context and careful clinical evaluation are critical for diagnosis and risk-stratification. The diagnosis of acute myocardial infarction requires a rising and/or falling pattern in hs-cTnT concentrations with at least one value above the sex-specific 99th percentile PLUS at least one of the following clinical criteria: ischemic symptoms, new or presumed new significant ST-T wave changes or new LBBB, development of pathological Q waves, imaging evidence of new loss of viable myocardium or new regional wall motion abnormality, or identification of intracoronary atherothrombosis or an acute angiographic culprit on coronary angiography. In appropriate low-risk patients with a non-ischemic electrocardiogram without active chest pain with a symptom onset >3-hours without recurrence, a single initial hs-cTnT<6 ng/L identifies patient with a very low risk in emergency department patient population. Ankita Torres MD CHEMISTRY [facility] [address] [place] [address] * (ABNORMAL) CBC WITH AUTO DIFFERENTIAL (10/03/2023 4:00 PM PAINT SPRAYER SANDBLASTER) [facility] WHITE BLOOD COUNT 11.5(H) 4.5 - 11.0 thou/cu mm 10/03/2023 4:09 PM [facility] RED BLOOD COUNT 2.97(L) 4.30 - 5.90 mil/cu mm 10/03/2023 4:09 PM [facility] HEMOGLOBIN 9.1(L) 13.5 - 17.5 g/dL 10/03/2023 4:09 PM [facility] HEMATOCRIT 29.0(L) 37.0 - 53.0 % 10/03/2023 4:09 PM [facility] MCV 98 80 - 100 fL 10/03/2023 4:09 PM [facility] MCH 30.6 26.0 - 34.0 pg 10/03/2023 4:09 PM [facility] MCHC 31.4(L) 32.0 - 36.0 g/dL 10/03/2023 4:09 PM [facility] RDW 14.4 11.5 - 15.5 % 10/03/2023 4:09 PM [facility] PLATELET COUNT 399 140 - 440 thou/cu mm 10/03/2023 4:09 PM [facility] MPV 9.4 6.5 - 11.0 fL 10/03/2023 4:09 PM [facility] % NEUT 82.4 % 10/03/2023 4:09 PM [facility] % LYMPH 7.3 % 10/03/2023 4:09 PM [facility] % MONO 9.4 % 10/03/2023 4:09 PM [facility] % EOS 0.6 % 10/03/2023 4:09 PM [facility] % BASO 0.3 % 10/03/2023 4:09 PM [facility] ABSOLUTE NEUTROPHILS 9.5(H) 1.7 - 7.0 thou/cu mm 10/03/2023 4:09 PM [facility] ABSOLUTE LYMPHOCYTES 0.8(L) 0.9 - 2.9 thou/cu mm 10/03/2023 4:09 PM [facility] ABSOLUTE MONOCYTES 1.1(H) <0.9 thou/cu mm 10/03/2023 4:09 PM PAINT SPRAYER SANDBLASTER [facility] ABSOLUTE EOSINOPHILS 0.1 <0.5 thou/cu mm 10/03/2023 4:09 PM PAINT SPRAYER SANDBLASTER [facility] ABSOLUTE BASOPHILS 0.0 <0.3 thou/cu mm 10/03/2023 4:09 PM [facility] Blood BLOOD SPECIMEN / Unknown Butterfly / Unknown 10/03/2023 4:00 PM PAINT SPRAYER SANDBLASTER 10/03/2023 4:02 PM PAINT SPRAYER SANDBLASTER Ankita Torres MD HEMATOLOG Y Performing Organization Address [facility] Co de Phone Number [facility] [address] [place] [address] * (ABNORMAL) PROTIME-INR (10/03/2023 4:00 PM PAINT SPRAYER SANDBLASTER) INR 1.9(H) <1.3 10/03/2023 4:09 PM [facility] PROTIME 20.5(H) 10.3 - 12.3 sec 10/03/2023 4:09 PM [facility] Blood BLOOD SPECIMEN / Unknown Butterfly / Unknown 10/03/2023 4:00 PM PAINT SPRAYER SANDBLASTER 10/03/2023 4:02 PM PAINT SPRAYER SANDBLASTER Narrative [facility] - 10/03/2023 4:09 PM PAINT SPRAYER SANDBLASTER ?Therapeutic Range 2.0-3.0 for most anticoagulated patients 2.5-3.5 or 4.0 for high risk patients The INR is only used for patients on stable oral anticoagulant therapy. It makes no significant contribution to the diagnosis or treatment of patients whose Protime is prolonged for other reasons. INR results are increased when heparin levels exceed 1.0 U/mL, which corresponds to an aPTT >125 seconds if the patient is on UFH. Ankita Torres MD HEMATOLOG Y Performing Organization Address City/[facility]/ZIP Co de Phone Number [facility] [address] [place] [address] * (ABNORMAL) PRO-BNP (10/03/2023 4:00 PM PAINT SPRAYER SANDBLASTER) Pathologist [facility] PRO-BNP 7,213(H) <125 pg/mL 10/03/2023 4:46 PM PAINT SPRAYER SANDBLASTER [facility] Blood BLOOD SPECIMEN / Unknown Butterfly / Unknown 10/03/2023 4:00 PM PAINT SPRAYER SANDBLASTER 10/03/2023 4:02 PM PAINT SPRAYER SANDBLASTER [facility] - 10/03/2023 4:46 PM PAINT SPRAYER SANDBLASTER The following cut-points have been suggested for the use of proBNP for the diagnostic evaluation of heart failure (HF) in patient with acute dyspnea. Patients with eGFR >= 60 Diagnosis (rule in CHF) ? <50 Years Old ?450 pg/mL 50 - 75 Years Old ?900 pg/mL >75 Years Old ? 1800 pg/mL Exclusion (rule out CHF) Age Independent ?300 pg/mL A cutoff of 1200 pg/mL for patients with an eGFR <60 yields a diagnostic sensitivity of 89% and specificity of 72% for acute congestive heart failure. ? Ankita Torres MD SEND OUTS [facility] [address] [place] [address] * (ABNORMAL) COMP METABOLIC PANEL (10/03/2023 4:00 PM PAINT SPRAYER SANDBLASTER) SODIUM 138 136 - 145 mmol/L 10/03/2023 4:37 PM [facility] POTASSIUM 5.0 3.5 - 5.1 mmol/L 10/03/2023 4:37 PM [facility] CHLORIDE 101 98 - 107 mmol/L 10/03/2023 4:37 PM [facility] CO2,TOTAL 27 22 - 29 mmol/L 10/03/2023 4:37 PM [facility] ANION GAP 10 5 - 18 10/03/2023 4:37 PM [facility] GLUCOSE 171(H) 70 - 99 mg/dL 10/03/2023 4:37 PM [facility] CALCIUM 9.0 8.8 - 10.2 mg/dL 10/03/2023 4:37 PM [facility] BUN 37(H) 8 - 23 mg/dL 10/03/2023 4:37 PM [facility] CREATININE 2.16(H) 0.70 - 1.20 mg/dL 10/03/2023 4:37 PM [facility] BUN/CREAT RATIO 17 10 - 20 4:37 PM [facility] eGFR 32(L) >90 mL/min/1.7 3m2 10/03/2023 4:37 PM [facility] Comment:As of 2022, eG FR is calculated by the CKD-EPI creatinine equation without race adjustment. ??eGFR can be influenced by muscle mass, exercise, and diet. ??The reported eGFR is an estimation only and is only applicable if the renal function is stable. ALBUMIN 3.3(L) 4.0 - 4.9 g/dL 10/03/2023 4:37 PM [facility] PROTEIN,TOTAL 6.4 6.0 - 8.0 g/dL 10/03/2023 4:37 PM [facility] BILIRUBIN,TOTAL 0.5 0.0 - 1.2 mg/dL 10/03/2023 4:37 PM [facility] ALK PHOSPHATASE 102 40 - 129 IU/L 10/03/2023 4:37 PM [facility] ALT (SGPT) 13 10 - 50 IU/L 10/03/2023 4:37 PM PAINT SPRAYER SANDBLASTER [facility] AST (SGOT) 16 10 - 50 IU/L 10/03/2023 4:37 PM PAINT SPRAYER SANDBLASTER [facility] Blood BLOOD SPECIMEN / Unknown Butterfly / Unknown 10/03/2023 4:00 PM PAINT SPRAYER SANDBLASTER 10/03/2023 4:02 PM PAINT SPRAYER SANDBLASTER Ankita Torres MD CHEMISTRY [facility] [address] [place] [address] * EKG 12 LEAD (10/03/2023 3:46 PM PAINT SPRAYER SANDBLASTER) Interpretation Normal sinus rhythm Low voltage QRS Borderline ECG No previous ECGs available ??compaired to [place] 09/25/23 ??no change BEYOND NOW Ventricular Rate 77 BPM BEYOND NOW Atrial Rate 77 BPM BEYOND NOW P-R Interval 132 ms BEYOND NOW QRS Duration 86 ms BEYOND NOW QT 406 ms BEYOND NOW QTc 459 ms BEYOND NOW P [place] 31 degrees BEYOND NOW R [place] 44 degrees BEYOND NOW T [place] 53 degrees BEYOND NOW 10/03/2023 3:46 PM PAINT SPRAYER SANDBLASTER 10/03/2023 6:19 PM PAINT SPRAYER SANDBLASTER Ankita Torres MD EKG ORD Performing Organization Address City/[facility]/ZIP Co de Phone Number BEYOND NOW [place], [place] from Last 3 Months Care Teams Reimbursement Rep Relationship Specialty Start Date End Date Kylah Crum MBBS [address] [place] [address] PCP - General Family Practice 10/03/23
--- OUTSIDE RECORDS SUMMARY | 2023-12-04 12:09 | XMS_ITS | Clinical Summary ---
Author Name Unknown Organization [facility] Address [address] [place] [address] Care Team Providers Care Preform Plate Maker Name Role Phone Kylah Crum M.D. Primary Care Provider [phone] Source Comments Patient records contain information from all sites at [facility]. For routine questions regarding patient records, call [phone] during business hours, M-F 8:00 AM - 5:00 PM Central Time. Record requests for emergency care only can be directed to [phone] at any time.[facility] Allergies No known active allergies Medications Medication Sig Dispensed Refills Start Date End Date Status cholecalciferol 10 mcg (400 Unit) tablet Take 10 mcg by mouth daily. 0 Active ferrous sulfate 325 mg (65 mg iron) DR tablet Take 65 mg of iron by mouth daily. 0 Active cyanocobalamin 2,000 mcg tablet Take 2,000 mcg by mouth daily. 0 Active acetaminophen (TYLENOL) 500 mg tablet Take 1,000 mg by mouth every 6 (six) hours as needed for pain. 0 Active amiodarone (PACERONE) 200 mg tablet Take 1 tablet (200 mg total) by mouth 2 (two) times a day for 2 days, THEN 1 tablet (200 mg total) daily. 34 tablet 0 3 Active aspirin 81 mg chewable tablet Chew 1 tablet (81 mg total) daily. 0 3 09/25/20 24 Active atorvastatin (LIPITOR) 80 mg tablet Take 1 tablet (80 mg total) by mouth at bedtime. 0 3 09/25/20 24 Active finasteride (PROSCAR) 5 mg tablet Take 1 tablet (5 mg total) by mouth daily. 0 3 Active rOPINIRole (REQUIP) 0.5 mg tablet Take 1 tablet (0.5 mg total) by mouth 3 (three) times a day. 0 3 Active tamsulosin (FLOMAX) 0.4 mg 24 hr capsule Take 1 capsule (0.4 mg total) by mouth at bedtime. 0 3 Active metoprolol tartrate (LOPRESSOR) 25 mg tablet Take 1 tablet (25 mg total) by mouth 2 (two) times a day. 60 tablet 0 3 Active glipiZIDE (GLUCOTROL XL) 2.5 mg 24 hr tablet Take 1 tablet (2.5 mg total) by mouth daily with breakfast. 30 tablet 0 3 Active furosemide (LASIX) 20 mg tablet Take 1 tablet (20 mg total) by mouth daily for 10 days. 10 tablet 0 3 Active furosemide (LASIX) 40 mg tablet Take 1 tablet (40 mg total) by mouth daily for 10 days. 10 tablet 0 3 Active warfarin (JANTOVEN) 1 mg tabletIndicatio ns:Prosthesis Aortic Valve Take per Anticoagulation Clinic 180 tablet 3 3 Active torsemide (DEMADEX) 20 mg tablet Take 1 tablet (20 mg total) by mouth daily. 0 4 Active torsemide 40 mg tablet Take 40 mg by mouth daily. 90 tablet 3 4 11/28/19 24 Discontinued torsemide (DEMADEX) 20 mg tablet Take 2 tablets (40 mg total) by mouth daily. 180 tablet 3 4 11/29/19 24 Discontinued Active Problems Problem Noted Date Diagnosed Date Post Commander (Current) Anticoagulant Treatment 09/13 Bypass Coronary Artery Graft Status Post 023 Cardiac Surgery Status Post 09/24/2023 Effusion Pleural 09/24/2023 Device Cardiac Status Post 09/23/2023 Overview: Previously placed loop recorder Therapy Fdc Antiplatelet 09/22/2023 Coronary Arterial Bypass Graft Status Post Perso nal History 09/20/2023 Prosthesis Aortic Valve 09/20/2023 Coronary Artery Disease Without Angina Pectoris 09/20/2023 Anemia Posthemorrhagic Acute (Blood Loss Anemia) 09/20/2023 Failure Renal Acute (Acute Kidney Injury) 2022 Hyperkalemia 09/20/2023 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 09/20/2023 Stroke Cerebrovascular Accident Personal History 09/18/2023 Anemia In Chronic Kidney Disease 09/06/2023 Stenosis Aortic Valve Acquired 08/19/2023 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 Glomerular Filtration Rate (GFR) 30 To 44 08/19/2023 Hyperlipidemia On Treatment 08/19/2023 Benign Prostatic Hyperplasia Without Obstruction 08/19/2023 Atrial Fibrillation Paroxysmal 08/19/2023 Diabetes Mellitus Type 2 08/19/2023 Hypertension Essential Primary 04/08/2020 Hemiplegia Dominant Side Right 04/11/2019 Resolved Problems Problem Noted Date Diagnosed Date Resolved Date Monitoring For Therapeutic Drug Therapy 10/01/2023 11/22/2023 Thrombocytopenia Secondary 09/22/2023 1 11/24/2022 Acidosis Lactic 09/20/2023 09/20/2023 Acquired Aortic Valve Disorder 09/19/2023 09/20/2023 Pain Chest 08/19/2023 09/18/2023 Stroke 08/19/2023 09/18/2023 Anemia Iron Deficiency 08/19/202309/11 Basal Cell Carcinoma Skin Other Parts Face 08/19/2023 09/18/2023 Squamous Cell Carcinoma Skin Other Parts Face 08/19/20 23 09/18/2023 Stenosis Mitral And Aortic Stenosis 08/19/2023 09/18/2023 Pain Shoulder Right 04/11/2019 09/18/20 23 Aphasia 04/11/2019 09/18/2023 Encounters Date Type Department Care Team Description 4 Orders Only Department of Cardiovascular Medicine in [place], [place] [address] [place] [address] Gudelia Soto M.D. Stenosis Aortic Valve Acquired (Primary Dx) 4 Clinical Communication Department of Cardiovascular Medicine in [place], [place] [address] [place] [address] Bethany Downs R.N. Triage 4 2:00 PM LUNCH COUNTER MANAGER External Outreach Division of Nephrology and Hypertension in [place], [place] [address] [place] [address] Mare Arauz M.D., Ph.D. Congestive Heart Failure (HCC) (Primary Dx) 4 Orders Only Division of Nephrology and Hypertension in [place], [place] [address] [place] [address] Mare Arauz M.D., Ph.D. Stenosis Aortic Valve Acquired (Primary Dx) 4 Clinical Communication Division of Nephrology and Hypertension in [place], [place] [address] [phone] Mare Arauz M.D., Ph.D. Med Question (Priority 2) 4 Clinical Communication Department of Anticoagulation in [place], [place] [address] [place] [phone] Edna Gamble RMihir. Anticoagulation 4 Clinical Communication Department of Anticoagulation in [place], [place] [address] [place] [phone] Lxei Carson Anticoagulation (Unable to reach) 3 Clinical Communication Division of Nephrology and Hypertension in [place], [place] [address] [place] [phone] Mare Arauz M.D., Ph.D. 3 3:00 PM LUNCH COUNTER MANAGER Anticoagulation Visit Department of Anticoagulation in [place], [place] [address] [place] [phone] Kylah Crum M.D. Diabetes Mellitus Type 2 (HCC) (Primary Dx); 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; Cardiac Surgery Status Post; Bypass Coronary Artery Graft Status Post; Prosthesis Aortic Valve; Post Commander (Current) Anticoagulant Treatment; Monitoring For Therapeutic Drug Therapy 3 12:33 PM LUNCH COUNTER MANAGER - 3 11:59 PM LUNCH COUNTER MANAGER Hospital Encounter Department of Laboratory Medicine in [address] [phone] Kylah Crum M.D. 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; Cardiac Surgery Status Post; Bypass Coronary Artery Graft Status Post; Prosthesis Aortic Valve; Diabetes Mellitus Type 2 (HCC) Discharge Disposition: Home or Self Care 3 Clinical Communication Department of Cardiovascular Medicine in [place], [place] [address] [place] [address] Gudelia Soto M.D. 3 Clinical Communication Department of Cardiovascular Surgery in [place], [place] [address] [place] [phone] Sarah Miller M.D., M.P.H. Med Question (Refills or stopping medications) 3 8:00 AM LUNCH COUNTER MANAGER External Outreach Division of Nephrology and Hypertension in [place], [place] [address] [place] [address] Mare Arauz M.D., Ph.D. Chronic Kidney Disease (CKD), Stage 3b Glomerular Filtration Rate (GFR) 30 To 44 (HCC) (Primary Dx); Hypertension Essential Primary 3 Clinical Communication Department of Anticoagulation in [place], [place] [address] [place] [phone] Roberto Kwok, M.P.H., R.N. 3 4:10 PM LUNCH COUNTER MANAGER Anticoagulation Visit Department of Anticoagulation in [place], [place] [address] [place] [phone] Kylah Crum M.D. Diabetes Mellitus Type 2 (HCC) (Primary Dx); 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; Cardiac Surgery Status Post; Bypass Coronary Artery Graft Status Post; Prosthesis Aortic Valve; Fdc (Current) Anticoagulant Treatment; Monitoring For Therapeutic Drug Therapy 3 12:42 PM LUNCH COUNTER MANAGER - 3 11:59 PM LUNCH COUNTER MANAGER Hospital Encounter Department of Laboratory Medicine in [place], [place] [address] [place] [phone] Kylah Crum M.D. 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; Cardiac Surgery Status Post; Bypass Coronary Artery Graft Status Post; Prosthesis Aortic Valve; Diabetes Mellitus Type 2 (HCC); Post Commander (Current) Anticoagulant Treatment; Monitoring For Therapeutic Drug Therapy Discharge Disposition: Home or Self Care 3 11:30 AM LUNCH COUNTER MANAGER Anticoagulation Visit Department of Anticoagulation in [place], [place] [address] [phone] Kylah Crum M.D. Diabetes Mellitus Type 2 (HCC) (Primary Dx); 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; Cardiac Surgery Status Post; Bypass Coronary Artery Graft Status Post; Prosthesis Aortic Valve; Post Commander (Current) Anticoagulant Treatment; Monitoring For Therapeutic Drug Therapy 3 10:50 AM LUNCH COUNTER MANAGER - 3 11:59 PM LUNCH COUNTER MANAGER Hospital Encounter Department of Laboratory Medicine in [place], [place] [address] [place] [address] Kylah Crum M.D. 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; Cardiac Surgery Status Post; Bypass Coronary Artery Graft Status Post; Prosthesis Aortic Valve; Fdc (Current) Anticoagulant Treatment; Monitoring For Therapeutic Drug Therapy Discharge Disposition: Home or Self Care 3 2:00 PM LUNCH COUNTER MANAGER Anticoagulation Visit Department of Anticoagulation in [place], [place] [address] [place] [address] Kylah Crum M.D. Prosthesis Aortic Valve (Primary Dx); 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; Cardiac Surgery Status Post; Bypass Coronary Artery Graft Status Post; Post Commander (Current) Anticoagulant Treatment; Monitoring For Therapeutic Drug Therapy; Diabetes Mellitus Type 2 (HCC) 3 11:20 AM LUNCH COUNTER MANAGER - 3 11:59 PM LUNCH COUNTER MANAGER Hospital Encounter Department of Laboratory Medicine in [place], [place] [address] [place] [address] Kylah Crum M.D. 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; Cardiac Surgery Status Post; Bypass Coronary Artery Graft Status Post; Prosthesis Aortic Valve; Post Commander (Current) Anticoagulant Treatment; Monitoring For Therapeutic Drug Therapy Discharge Disposition: Home or Self Care 3 2:00 PM LUNCH COUNTER MANAGER Anticoagulation Visit Department of Anticoagulation in [place], [place] [address] [place] [address] Kylah Crum M.D. Prosthesis Aortic Valve (Primary Dx); 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; Cardiac Surgery Status Post; Bypass Coronary Artery Graft Status Post; Post Commander (Current) Anticoagulant Treatment; Monitoring For Therapeutic Drug Therapy 3 11:00 AM LUNCH COUNTER MANAGER - 3 11:59 PM LUNCH COUNTER MANAGER Hospital Encounter Department of Laboratory Medicine in [place], [place] [address] [place] [address] Kylah Crum M.D. 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; Cardiac Surgery Status Post; Bypass Coronary Artery Graft Status Post; Prosthesis Aortic Valve; Fdc (Current) Anticoagulant Treatment; Monitoring For Therapeutic Drug Therapy Discharge Disposition: Home or Self Care 3 Orders Only [facility] Kylah Crum M.D. Screening Abdominal Aortic Aneurysm; Diabetes Mellitus Type 2 (HCC) 3 Episode Changes Department of Cardiovascular Medicine in [place], [place] [address] [place] [phone] Cony Calzada CEP 3 11:30 AM LUNCH COUNTER MANAGER Anticoagulation Visit Department of Anticoagulation in [place], [place] [address] [place] [phone] Kylah Crum M.D. Post Commander (Current) Anticoagulant Treatment (Primary Dx); 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; Cardiac Surgery Status Post; Bypass Coronary Artery Graft Status Post; Prosthesis Aortic Valve; Monitoring For Therapeutic Drug Therapy 3 10:50 AM LUNCH COUNTER MANAGER - 3 11:59 PM LUNCH COUNTER MANAGER Hospital Encounter Department of Laboratory Medicine in [place], [place] [address] [place] [address] Kylah Crum M.D. 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; Cardiac Surgery Status Post; Bypass Coronary Artery Graft Status Post; Prosthesis Aortic Valve; Fdc (Current) Anticoagulant Treatment; Monitoring For Therapeutic Drug Therapy Discharge Disposition: Home or Self Care 3 3:00 PM LUNCH COUNTER MANAGER Anticoagulation Visit Department of Anticoagulation in [place], [place] [address] [place] [phone] Kylah Crum M.D. Fdc (Current) Anticoagulant Treatment (Primary Dx); 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; Cardiac Surgery Status Post; Bypass Coronary Artery Graft Status Post; Prosthesis Aortic Valve; Monitoring For Therapeutic Drug Therapy 3 12:36 PM LUNCH COUNTER MANAGER - 3 11:59 PM LUNCH COUNTER MANAGER Hospital Encounter Department of Laboratory Medicine in [place], [place] [address] [place] [address] Kylah Crum M.D. 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; Cardiac Surgery Status Post; Bypass Coronary Artery Graft Status Post; Prosthesis Aortic Valve; Post Commander (Current) Anticoagulant Treatment; Monitoring For Therapeutic Drug Therapy Discharge Disposition: Home or Self Care 3 1:00 PM LUNCH COUNTER MANAGER Virtual Visit Department of Cardiovascular Surgery in [address] [phone] Mariama Monk APRN, C.N.PJarrett Cardiac Surgery Status Post (Primary Dx); 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; Prosthesis Aortic Valve; Fdc (Current) Anticoagulant Treatment 3 11:00 AM LUNCH COUNTER MANAGER Anticoagulation Visit Department of Anticoagulation in [place], [place] [address] [place] [phone] Kylah Crum M.D. Post Commander (Current) Anticoagulant Treatment (Primary Dx); 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; Cardiac Surgery Status Post; Bypass Coronary Artery Graft Status Post; Prosthesis Aortic Valve; Monitoring For Therapeutic Drug Therapy 3 10:20 AM LUNCH COUNTER MANAGER - 3 11:59 PM LUNCH COUNTER MANAGER Hospital Encounter Department of Laboratory Medicine in [place], [place] [address] [place] [address] Kylah Crum M.D. 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; Cardiac Surgery Status Post; Bypass Coronary Artery Graft Status Post; Prosthesis Aortic Valve; Fdc (Current) Anticoagulant Treatment; Monitoring For Therapeutic Drug Therapy Discharge Disposition: Home or Self Care 3 1:30 PM LUNCH COUNTER MANAGER Telemedicine Department of Cardiovascular Surgery in [address] [phone] Laila Basurto P.A.-C. Yaw, Elissa J, APRN, C.N.P. Cardiac Surgery Status Post (Primary Dx); Bypass Coronary Artery Graft Status Post; Prosthesis Aortic Valve; 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; Coronary Artery Disease Without Angina Pectoris 3 4:45 PM LUNCH COUNTER MANAGER Internal E-Consult Division of Nephrology and Hypertension in [place], [place] [address] [place] [address] Pavan May M.D. Elevated Creatinine (Primary Dx); Failure Renal Acute (Acute Kidney Injury) (HCC) 3 Clinical Communication Department of [facility], [facility], [place], [place] [address] [place] [address] Kylah Crum M.D. Results 3 3:30 PM LUNCH COUNTER MANAGER Anticoagulation Visit Department of Anticoagulation in [place], [place] [address] [place] [address] Kylah Crum M.D. Post Commander (Current) Anticoagulant Treatment (Primary Dx); 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; Cardiac Surgery Status Post; Bypass Coronary Artery Graft Status Post; Prosthesis Aortic Valve; Monitoring For Therapeutic Drug Therapy 3 11:51 AM LUNCH COUNTER MANAGER - 3 11:59 PM LUNCH COUNTER MANAGER Hospital Encounter Department of Laboratory Medicine in [address] [phone] Kylah Crum M.D. Chronic Kidney Disease Stage 4 Glomerular Filtration Rate 15-29 (HCC) Discharge Disposition: Home or Self Care 3 11:50 AM LUNCH COUNTER MANAGER Hospital Encounter Department of Laboratory Medicine in [address] [phone] Kylah Crum M.D. 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; Cardiac Surgery Status Post; Bypass Coronary Artery Graft Status Post; Prosthesis Aortic Valve Discharge Disposition: Home or Self Care 3 11:00 AM LUNCH COUNTER MANAGER Office Visit Department of [facility], [facility], [address] [phone] Kylah Crum M.D. Chronic Kidney Disease Stage 4 Glomerular Filtration Rate 15-29 (HCC) (Primary Dx); Cardiac Surgery Status Post; 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; Prosthesis Aortic Valve; Bypass Coronary Artery Graft Status Post; Diabetes Mellitus Type 2 (HCC); Atrial Fibrillation Unspecified (HCC); Hypertension And Chronic Kidney Disease Stage 1 To 4; Hyperlipidemia; Anemia Iron Deficiency 3 Clinical Communication Department of Anticoagulation in [place], [place] [address] [place] [phone] Ralf Peralta R.N. Anticoagulation (CCM enrollment) 3 Clinical Communication Department of Anticoagulation in [place], [place] [address] [place] [phone] Nidia Kuhn Anticoagulation (New enrollment) 3 1:33 PM LUNCH COUNTER MANAGER - 3 11:59 PM LUNCH COUNTER MANAGER Hospital Encounter Department of Laboratory Medicine in [place], [place] [address] [place] [address] Sammi Kothari, PIERRE, C.N.P., D.N.P. Prosthesis Aortic Valve Discharge Disposition: Home or Self Care 3 Clinical Communication Department of Cardiovascular Surgery in [place], [place] [address] [place] [phone] Sammi Kothari APRN, C.N.P., D.N.P. 3 Clinical Communication [facility] [address] [place] [phone] Sarah Miller M.D., M.P.H. 3 Clinical Communication Department of Anticoagulation in [place], [place] [address] [place] [phone] Edna Quinones R.N. Anticoagulation 3 Clinical Communication [facility] [address] [place] [phone] Sarah Miller M.D., M.P.H. 3 Clinical Communication [facility]ST [address] [phone] Sarah Miller M.D., M.P.H. 3 Clinical Communication [facility] [address] [place] [phone] Sarah Miller M.D., M.P.H. 3 Orders Only Preoperative Evaluation Center in [place], [place] [address] [place] [address] Fanny Villalobos APRN, C.NJarrettP., D.N.P. 3 7:30 AM LUNCH COUNTER MANAGER [place] [address] [place] [phone] Rowena Antonio M.D. Snyder, Rhonda K, R.R.T., L.R.T. 3 7:00 AM LUNCH COUNTER MANAGER Ancillary Procedure Department of Anesthesiology 3 7:00 AM LUNCH COUNTER MANAGER - 3 3:27 PM LUNCH COUNTER MANAGER Surgery [facility] OR [address] [place] [phone] Sarah Miller M.D., M.P.H. REPLACEMENT AORTIC VALVE, POSSIBLE AORTIC ROOT ENLARGEMENT. (On-X Conform 23mm Valve) 3 6:45 AM LUNCH COUNTER MANAGER Ancillary Procedure [facility] OR [address] [place] [phone] Sarah Miller M.D., M.P.H. 3 5:38 AM LUNCH COUNTER MANAGER - 3 4:29 PM LUNCH COUNTER MANAGER Hospital Encounter [facility] [place] [facility], [facility], [facility], Fifth Floor [address] [place] [phone] Sarah Miller M.D., M.P.H. Acquired Aortic Valve Disorder (Primary Dx); Stenosis Aortic Valve Acquired; Decline Functional Status [R53.81]; Prosthesis Aortic Valve; Bypass Coronary Artery Graft Status Post; Cardiac Arrest Sudden Personal History; Cardiac Surgery Status Post; Failure Renal Acute (Acute Kidney Injury) (HCC); 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 Glomerular Filtration Rate (GFR) 30 To 44 (HCC); Hyperlipidemia On Treatment Discharge Disposition: Home or Self Care 3 9:45 AM LUNCH COUNTER MANAGER Office Visit Department of Cardiovascular Surgery in [address] [phone] Elvi Oliva MPAS, PJarrettA.-C. 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 Dona Kong, R.Danny. Stenosis Aortic Valve Acquired; Acquired Aortic Valve Disorder 3 12:40 PM CDT Virtual Visit Department of Pharmacy in [address] [phone] Norman Roca APRN, C.N.P., D.N.P. Gena May, PharmLeonid., R.Ph. Stenosis Aortic Valve Acquired; Acquired Aortic Valve Disorder 3 Clinical Communication Department of Dental Specialties in [place], [place] [address] [place] [phone] Duc Bowling D.D.S. 3 8:45 AM CDT Telemedicine Preoperative Evaluation Center in [place], [place] [address] [place] [phone] Norman Roca APRN, C.N.P., D.N.P. Fanny Villalobos APRN, C.N.P., D.N.P. 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 Stenosis Aortic Valve Acquired; Acquired Aortic Valve Disorder 3 3:00 PM CDT Office Visit Department of Cardiovascular Surgery in [address] [phone] Norman Roca APRN, C.N.P., D.N.P. Acquired Aortic Valve Disorder (Primary Dx); Stenosis Aortic Valve Acquired 3 2:30 PM CDT Comprehensive Visit Department of Cardiovascular Surgery [address] [phone] Sarah Miller M.D., M.P.H. 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 Stenosis Aortic Valve Acquired Discharge Disposition: Home or Self Care from Last 3 Months Family History Medical History Relation Name Comments Alzheimer's disease Brother 1 No Known Problems Brother 2 Bicuspid aortic valve Daughter Heart disease Father Diabetes Maternal Grandfather Heart attack Maternal Grandfather age 60s Lymphoma Mother Prostate cancer Paternal Grandfather No Known Problems Sister AVR - Aortic valve replacement Son Bicuspid aortic valve Son Relation Name Status Comments Brother 1 Alive Brother 2 Alive Daughter Father Maternal Grandfather Mother Paternal Grandfather Sister Alive Son Social History Tobacco Use Types Packs/Day Years Used Date Smoking Tobacco: Former Cigarettes Smokeless Tobacco: Never Tobacco Cessation:Counseling Given: Not Answered Comments:Smoked recreationally over 40 years ago - a few cigarettes once in a while. Alcohol Use Standard Drinks/Week Comments Never 0 (1 standard drink = 0.6 oz pur e alcohol) Overall Financial Resource Strain (CARDIA) Answe r Date Recorded How hard is it for you to pa y for the very basics like food, housing, medical care, and heating? Patient declined 08/29/2023 PHQ-2 Answer Date Recorded PHQ-2 Score 0 09/10/2023 Exercise Vital Sign Answer Date Recorde d On average, how many days pe r week do you engage in moderate to strenuous exercise (like a brisk walk)? Patient declined On average, how many minutes do you engage in exercise at this level? Patient declined 08/29/2023 Hunger Vital Sign Answer Date Recorded Within the past 12 months, y ou worried that your food would run out before you got the money to buy more. Never true 08/29/20 Within the past 12 months, t he food you bought just didn't last and you didn't have money to get more. Never true 08/29/2023 PRAPARE - Transportation Answer Date Re corded In the past 12 months, has l ack of transportation kept you from medical appointments or from getting medications? No 08/12 In the past 12 months, has l ack of transportation kept you from meetings, work, or from getting things needed for daily living? No 08/29/2023 Depression Answer Date Recor ded PHQ-9 Total Score (max 27) 1 09/10 Nutrition Answer Date Recorded Nutrition: EVOO Fat Source Unknown 08/29 On average, how many serving s of fruits and vegetables do you eat per day (serving size is equal to 1 cup or approximately the size of a tennis ball)? 0-2 08/29/2023 Dental Answer Date Recorded Dental: Regular Dentist No 08/29/20 Employment Answer Date Recorded Employment status Retired 08/29/2023 Housing Stability Answer Date Recorded What is your living situation today? I have a [facility] place to live 08/29/2023 Sex and Gender Information Value Date Recorded Sex Assigned at Male 08/29/2023 11:06 AM CDT Gender Identity Male 08/29/2023 11:06 AM CDT Sexual Orientation Straight 08/29/2023 11 :06 AM CDT Last Filed Vital Signs Vital Sign Reading Time Taken Comments Blood Pressure 108/65 10/01/2023 11:08 AM LUNCH COUNTER MANAGER aveage Pulse 76 10/01/2023 11:08 AM LUNCH COUNTER MANAGER Temperature 36.1 ??C (96.9 ??F) 10/01/2023 1 1:08 AM LUNCH COUNTER MANAGER Respiratory Rate 20 10/01/2023 11:0 8 AM LUNCH COUNTER MANAGER Oxygen Saturation 98% 10/01/2023 11: 08 AM LUNCH COUNTER MANAGER Inhaled Oxygen Concentration - - Weight 90.2 kg (198 lb 11.9 oz) 023 11:08 AM LUNCH COUNTER MANAGER Height 172.4 cm (5' 7.87) 10/01/2023 1 1:08 AM LUNCH COUNTER MANAGER Body Mass Index 30.33 10/01/2023 11:08 AM LUNCH COUNTER MANAGER Plan of Treatment Upcoming Encounters Date Type Department Care Team (Latest Contact Info) Description 12/21/2023 10:15 AM LUNCH COUNTER MANAGER Clinical Communication Virtual Review in [place], [place] [address] [place] [address] 12/24/2023 2:00 PM LUNCH COUNTER MANAGER Comprehensive Visit Department of Cardiovascular Medicine in [place], [place] [address] [place] [phone] Gudelia Soto M.D. [address] [place] [phone] 01/01/2024 3:45 PM LUNCH COUNTER MANAGER Comprehensive Visit Division of Hematology in [place], [place] [address] [phone] Billy Segal APRN, C.N.P., D.N.P. [address] [place] [phone] Health Maintenance Due Date Last Done Comments Abdominal Aortic Aneurysm (A AA) Screen 1952 CT Colonography 1952 Cologuard 1952 Diabetic Office Visit with F oot Exam 1952 Dilated Eye Exam 1952 FIT 1952 Hepatitis C Screening 1952 Urine Albumin 1952 Visit: Medicare Annual Wellness 1952 COVID-19 Vaccine (#1) 1952 Pneumococcal vaccine (65+ ye ars) (1 of 2 - PCV) 1958 DTaP,Tdap,and Td Vaccines (1 - Tdap) 1971 Zoster Vaccines (1 of 2) 2002 Hepatitis B Vaccines (1 of 3 - Risk 3-dose series) 2012 Influenza Vaccine (#1) 2023 Depression Screening (Annual PHQ-2) 11/12/2023 Fall Risk Screen (Annual) 11/12/2023 Hemoglobin A1C 02/21/2024 08/22/2023 Office Visit for Blood Press ure Check / Re-check 10/01/2024 10/01/2023 Visit: Chronic Disease, age 18+ 10/01/2024 , 10/01/2023 Creatinine Level (Kidney Fun ction Test) 10/03/2024 10/03/2023, 10/01/2023, 09/26/2023, Additional history exists Potassium Level 10/03/2024 10/03/2023, 09/13, 09/26/2023, Additional history exists Sodium Level 10/03/2024 10/03/2023, 09/13, 09/26/2023, Additional history exists Lipid (Cholesterol) Screening 08/21/2028 08/21/2023 Colonoscopy 11/21/2032 11/21/2022 (Perf ormed elsewhere), 11/21/2022 Colorectal Cancer Screening 11/21/2032 Medical Devices Implanted Type Area Machine Tool Rebuilder Device Identifier Shelf Expiration Date Model / Serial / Lot Vlv Aort Cnf [facility] 23 - [id number] - [id number] Implanted:Qty : 1 on 09/19/2023 by Sarah Miller M.D., M.P.H. at [facility] Cardiac Valve Prosthesis N/A: Aortic Valve Artivion (Prev. [employer]) 2028 [id number]-23 / [id number] / [employer] Tfln 1x6 - [id number] Implanted:Qty : 1 on 09/19/2023 by Sarah Miller M.D., M.P.H. at [facility] Hardware e.g. pins/screws/r ods N/A: Chest [employer] [id number] / / Procedures Procedure Name Priority Date/Time Associated Diagnosis Comments OUTSIDE DX CHEST Routine 11/11/2023 8:30 AM LUNCH COUNTER MANAGER OUTSIDE DX CHEST Routine 11/08/2023 3:25 PM LUNCH COUNTER MANAGER INR REFLEX, POCT, B Routine 11/02/2023 12:42 PM LUNCH COUNTER MANAGER 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 Cardiac Surgery Status Post Bypass Coronary Artery Graft Status Post Prosthesis Aortic Valve Diabetes Mellitus Type 2 (HCC) OUTSIDE DX CHEST Routine 10/31/2023 9:00 AM LUNCH COUNTER MANAGER INR REFLEX, POCT, B Routine 10/29/2023 12:50 PM LUNCH COUNTER MANAGER 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 Cardiac Surgery Status Post Bypass Coronary Artery Graft Status Post Prosthesis Aortic Valve Diabetes Mellitus Type 2 (HCC) Fdc (Current) Anticoagulant Treatment Monitoring For Therapeutic Drug Therapy INR REFLEX, POCT, B Routine 10/26/2023 11:36 AM LUNCH COUNTER MANAGER 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 Cardiac Surgery Status Post Bypass Coronary Artery Graft Status Post Prosthesis Aortic Valve Fdc (Current) Anticoagulant Treatment Monitoring For Therapeutic Drug Therapy INR REFLEX, POCT, B Routine 10/22/2023 11:32 AM LUNCH COUNTER MANAGER 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 Cardiac Surgery Status Post Bypass Coronary Artery Graft Status Post Prosthesis Aortic Valve Fdc (Current) Anticoagulant Treatment Monitoring For Therapeutic Drug Therapy INR REFLEX, POCT, B Routine 10/17/2023 11:22 AM LUNCH COUNTER MANAGER 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 Cardiac Surgery Status Post Bypass Coronary Artery Graft Status Post Prosthesis Aortic Valve Post Commander (Current) Anticoagulant Treatment Monitoring For Therapeutic Drug Therapy INR REFLEX, POCT, B Routine 10/12/2023 11:03 AM LUNCH COUNTER MANAGER 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 Cardiac Surgery Status Post Bypass Coronary Artery Graft Status Post Prosthesis Aortic Valve Post Commander (Current) Anticoagulant Treatment Monitoring For Therapeutic Drug Therapy INR REFLEX, POCT, B Routine 10/08/2023 12:52 PM LUNCH COUNTER MANAGER 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 Cardiac Surgery Status Post Bypass Coronary Artery Graft Status Post Prosthesis Aortic Valve Post Commander (Current) Anticoagulant Treatment Monitoring For Therapeutic Drug Therapy INR REFLEX, POCT, B Routine 10/05/2023 10:35 AM LUNCH COUNTER MANAGER 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 Cardiac Surgery Status Post Bypass Coronary Artery Graft Status Post Prosthesis Aortic Valve Post Commander (Current) Anticoagulant Treatment Monitoring For Therapeutic Drug Therapy INR REFLEX, POCT, B Routine 10/01/2023 12:02 PM LUNCH COUNTER MANAGER 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 Cardiac Surgery Status Post Bypass Coronary Artery Graft Status Post Prosthesis Aortic Valve BASIC METABOLIC PANEL, S/P Routine 10/01/2023 12:02 PM LUNCH COUNTER MANAGER Chronic Kidney Disease Stage 4 Glomerular Filtration Rate 15-29 (HCC) PROTHROMBIN TIME (PT), P Routine 09/28/2023 1:41 PM LUNCH COUNTER MANAGER Prosthesis Aortic Valve GLUCOSE POCT, B Routine 09/26/2023 11:37 AM LUNCH COUNTER MANAGER GLUCOSE POCT, B Routine 09/26/2023 7:55 AM LUNCH COUNTER MANAGER BASIC METABOLIC PANEL, S/P Routine 09/26/2023 6:58 AM LUNCH COUNTER MANAGER PROTHROMBIN TIME (PT), P Routine 09/26/2023 6:58 AM LUNCH COUNTER MANAGER CBC WITHOUT DIFFERENTIAL, B Routine 09/26/2023 6:58 AM LUNCH COUNTER MANAGER GLUCOSE POCT, B Routine 09/25/2023 8:25 PM LUNCH COUNTER MANAGER GLUCOSE POCT, B Routine 09/25/2023 5:36 PM LUNCH COUNTER MANAGER GLUCOSE POCT, B Routine 09/25/2023 1:13 PM LUNCH COUNTER MANAGER BASIC METABOLIC PANEL, S/P Routine 09/25/2023 9:26 AM LUNCH COUNTER MANAGER PROTHROMBIN TIME (PT), P Routine 09/25/2023 9:26 AM LUNCH COUNTER MANAGER CBC WITHOUT DIFFERENTIAL, B Routine 09/25/2023 9:26 AM LUNCH COUNTER MANAGER GLUCOSE POCT, B Routine 09/25/2023 8:10 AM LUNCH COUNTER MANAGER DX CHEST AP OR PA AND LATERAL 2 VIEWS RAD - Routine (most inpatients and all outpatients) 09/25/2023 7:26 AM LUNCH COUNTER MANAGER ECG Routine 09/25/2023 4:55 AM LUNCH COUNTER MANAGER GLUCOSE POCT, B Routine 09/24/2023 8:33 PM LUNCH COUNTER MANAGER GLUCOSE POCT, B Routine 09/24/2023 4:44 PM LUNCH COUNTER MANAGER NOCTURNAL OXYGEN STUDY - RT Routine 09/24/2023 3:46 PM LUNCH COUNTER MANAGER (TTE) 2D ECHO DOPPLER COLOR Routine 09/24/2023 3:26 PM LUNCH COUNTER MANAGER GLUCOSE POCT, B Routine 09/24/2023 12:43 PM LUNCH COUNTER MANAGER RT TO ARRANGE FOR HOME DME Routine 09/24/2023 11:14 AM LUNCH COUNTER MANAGER GLUCOSE POCT, B Routine 09/24/2023 7:19 AM LUNCH COUNTER MANAGER BASIC METABOLIC PANEL, S/P Routine 09/24/2023 6:49 AM LUNCH COUNTER MANAGER PROTHROMBIN TIME (PT), P Routine 09/24/2023 6:49 AM LUNCH COUNTER MANAGER CBC WITHOUT DIFFERENTIAL, B Routine 09/24/2023 6:49 AM LUNCH COUNTER MANAGER GLUCOSE POCT, B Routine 09/23/2023 9:38 PM LUNCH COUNTER MANAGER GLUCOSE POCT, B Routine 09/23/2023 5:02 PM LUNCH COUNTER MANAGER BASIC METABOLIC PANEL, S/P STAT 09/23/2023 3:44 PM LUNCH COUNTER MANAGER HEMOGLOBIN, B STAT 09/23/2023 3:44 PM LUNCH COUNTER MANAGER PROTHROMBIN TIME (PT), P STAT 09/23/2023 3:44 PM LUNCH COUNTER MANAGER GLUCOSE POCT, B Routine 09/23/2023 12:19 PM LUNCH COUNTER MANAGER DX CHEST AP OR PA AND LATERAL 2 VIEWS RAD - Routine (most inpatients and all outpatients) 09/23/2023 8:44 AM LUNCH COUNTER MANAGER BASIC METABOLIC PANEL, S/P Routine 09/23/2023 7:34 AM LUNCH COUNTER MANAGER PROTHROMBIN TIME (PT), P Routine 09/23/2023 7:34 AM LUNCH COUNTER MANAGER CBC WITHOUT DIFFERENTIAL, B Routine 09/23/2023 7:34 AM LUNCH COUNTER MANAGER HEPATIC FUNCTION PANEL, S Routine 09/23/2023 7:31 AM LUNCH COUNTER MANAGER GLUCOSE POCT, B Routine 09/23/2023 7:24 AM LUNCH COUNTER MANAGER BASIC METABOLIC PANEL, S/P STAT 09/22/2023 11:14 PM LUNCH COUNTER MANAGER CBC WITHOUT DIFFERENTIAL, B STAT 09/22/2023 11:14 PM LUNCH COUNTER MANAGER GLUCOSE POCT, B Routine 09/22/2023 9:29 PM LUNCH COUNTER MANAGER RESPIRATORY ASSESS AND TREAT Routine 09/22/2023 2:00 PM LUNCH COUNTER MANAGER TRANSFUSE RED BLOOD CELLS Routine 09/22/2023 2:00 PM LUNCH COUNTER MANAGER GLUCOSE POCT, B Routine 09/22/2023 11:27 AM LUNCH COUNTER MANAGER GLUCOSE POCT, B Routine 09/22/2023 7:34 AM LUNCH COUNTER MANAGER BASIC METABOLIC PANEL, S/P Routine 09/22/2023 7:04 AM LUNCH COUNTER MANAGER PROTHROMBIN TIME (PT), P Routine 09/22/2023 7:04 AM LUNCH COUNTER MANAGER CBC WITHOUT DIFFERENTIAL, B Routine 09/22/2023 7:04 AM LUNCH COUNTER MANAGER TYPE AND SCREEN Routine 09/22/2023 7:01 AM LUNCH COUNTER MANAGER GLUCOSE POCT, B Routine 09/21/2023 10:52 PM LUNCH COUNTER MANAGER GLUCOSE POCT, B Routine 09/21/2023 7:07 PM LUNCH COUNTER MANAGER RESPIRATORY ASSESS AND TREAT Routine 09/21/2023 2:00 PM LUNCH COUNTER MANAGER GLUCOSE POCT, B Routine 09/21/2023 11:27 AM LUNCH COUNTER MANAGER GLUCOSE POCT, B Routine 09/21/2023 8:50 AM LUNCH COUNTER MANAGER PROTHROMBIN TIME (PT), P STAT 09/21/2023 7:47 AM LUNCH COUNTER MANAGER PATIENT STATUS Timed 09/21/2023 6:35 AM LUNCH COUNTER MANAGER ABG W/COOX Timed 09/21/2023 6:35 AM LUNCH COUNTER MANAGER GLUCOSE POCT, B Routine 09/21/2023 6:31 AM LUNCH COUNTER MANAGER BASIC METABOLIC PANEL, S/P Timed 09/21/2023 5:11 AM LUNCH COUNTER MANAGER PHOSPHORUS (INORGANIC), S Timed 09/21/2023 5:11 AM LUNCH COUNTER MANAGER MAGNESIUM, S Timed 09/21/2023 5:11 AM LUNCH COUNTER MANAGER CBC WITHOUT DIFFERENTIAL, B Timed 09/21/2023 5:11 AM LUNCH COUNTER MANAGER BASIC METABOLIC PANEL, S/P Timed 09/21/2023 12:21 AM LUNCH COUNTER MANAGER GLUCOSE POCT, B Routine 09/20/2023 8:33 PM LUNCH COUNTER MANAGER POTASSIUM, S/P Timed 09/20/2023 8:33 PM LUNCH COUNTER MANAGER GLUCOSE POCT, B Routine 09/20/2023 4:31 PM LUNCH COUNTER MANAGER BASIC METABOLIC PANEL, S/P STAT 09/20/2023 4:27 PM LUNCH COUNTER MANAGER RESPIRATORY ASSESS AND TREAT Routine 09/20/2023 2:00 PM LUNCH COUNTER MANAGER GLUCOSE POCT, B Routine 09/20/2023 11:51 AM LUNCH COUNTER MANAGER BASIC METABOLIC PANEL, S/P STAT 09/20/2023 11:51 AM LUNCH COUNTER MANAGER GLUCOSE POCT, B Routine 09/20/2023 6:30 AM LUNCH COUNTER MANAGER PREPARE PLATELETS STAT 09/20/2023 6:3 0 AM LUNCH COUNTER MANAGER PREPARE CRYOPRECIPITATE STAT 09/20/2023 4:30 AM LUNCH COUNTER MANAGER LACTATE, B Timed 09/20/2023 4:11 AM LUNCH COUNTER MANAGER PATIENT STATUS Timed 09/20/2023 4:11 AM LUNCH COUNTER MANAGER ABG W/O COOX Timed 09/20/2023 4:11 AM LUNCH COUNTER MANAGER ACTIVATED PARTIAL THROMBOPLASTIN TIME (APTT), P Timed 09/20/2023 4:09 AM LUNCH COUNTER MANAGER PROTHROMBIN TIME (PT), P Timed 09/20/2023 4:09 AM LUNCH COUNTER MANAGER CBC WITHOUT DIFFERENTIAL, B Timed 09/20/2023 4:09 AM LUNCH COUNTER MANAGER MAGNESIUM, S Timed 09/20/2023 4:09 AM LUNCH COUNTER MANAGER BASIC METABOLIC PANEL, S/P Timed 09/20/2023 4:09 AM LUNCH COUNTER MANAGER DX CHEST PORTABLE WITH AM ROUNDS 1 VIEW RAD - Routine (most inpatients and all outpatients) 09/20/2023 3:33 AM LUNCH COUNTER MANAGER TIMP2/IGFBP7 MANJEET RISK SCORE, U Routine 09/20/2023 3:24 AM LUNCH COUNTER MANAGER PREPARE PLATELETS STAT 09/20/2023 2:3 0 AM LUNCH COUNTER MANAGER PREPARE FRESH FROZEN PLASMA STAT 09/20/2023 2:30 AM LUNCH COUNTER MANAGER PREPARE PLATELETS STAT 09/20/2023 2:3 0 AM LUNCH COUNTER MANAGER GLUCOSE POCT, B Routine 09/20/2023 1:17 AM LUNCH COUNTER MANAGER GLUCOSE POCT, B Routine 09/19/2023 11:58 PM LUNCH COUNTER MANAGER GLUCOSE POCT, B Routine 09/19/2023 11:20 PM LUNCH COUNTER MANAGER LACTATE, B Timed 09/19/2023 10:58 PM LUNCH COUNTER MANAGER RESPIRATORY ASSESS AND TREAT Routine 09/19/2023 10:30 PM LUNCH COUNTER MANAGER GLUCOSE POCT, B Routine 09/19/2023 10:27 PM LUNCH COUNTER MANAGER GLUCOSE POCT, B Routine 09/19/2023 9:24 PM LUNCH COUNTER MANAGER ECG Routine 09/19/2023 8:14 PM LUNCH COUNTER MANAGER GLUCOSE POCT, B Routine 09/19/2023 7:58 PM LUNCH COUNTER MANAGER LACTATE, B Timed 09/19/2023 7:43 PM LUNCH COUNTER MANAGER PATIENT STATUS Timed 09/19/2023 7:43 PM LUNCH COUNTER MANAGER LACTATE, B/P Timed 09/19/2023 7:43 PM LUNCH COUNTER MANAGER ABG W/COOX Timed 09/19/2023 7:43 PM LUNCH COUNTER MANAGER GLUCOSE POCT, B Routine 09/19/2023 6:57 PM LUNCH COUNTER MANAGER GLUCOSE POCT, B Routine 09/19/2023 6:23 PM LUNCH COUNTER MANAGER DX CHEST PORTABLE 1 VIEW 09/19/2023 5:45 PM LUNCH COUNTER MANAGER PATIENT STATUS STAT 09/19/2023 5:19 PM LUNCH COUNTER MANAGER FIBRINOGEN, P STAT 09/19/2023 5:19 PM LUNCH COUNTER MANAGER PROTHROMBIN TIME (PT), P STAT 09/19/2023 5:19 PM LUNCH COUNTER MANAGER ACTIVATED PARTIAL THROMBOPLASTIN TIME (APTT), P STAT 09/19/2023 5:19 PM LUNCH COUNTER MANAGER CBC WITHOUT DIFFERENTIAL, B STAT 09/19/2023 5:19 PM LUNCH COUNTER MANAGER LACTATE, B STAT 09/19/2023 5:19 PM LUNCH COUNTER MANAGER ABG W/COOX STAT 09/19/2023 5:19 PM LUNCH COUNTER MANAGER BASIC METABOLIC PANEL, S/P STAT 09/19/2023 5:19 PM LUNCH COUNTER MANAGER CYSTATIN C WITH EGFR Timed 09/19/2023 5:19 PM LUNCH COUNTER MANAGER Acquired Aortic Valve Disorder AIRWAY CARE Routine 09/19/2023 5:16 PM LUNCH COUNTER MANAGER MECHANICAL VENTILATOR Routine 09/19/2023 5:16 PM LUNCH COUNTER MANAGER RESPIRATORY ASSESS AND TREAT Routine 09/19/2023 5:07 PM LUNCH COUNTER MANAGER TRANSFUSE PLATELETS Routine 09/19/2023 4 :58 PM LUNCH COUNTER MANAGER PLATELETS, B STAT 09/19/2023 4:20 PM LUNCH COUNTER MANAGER PROTHROMBIN TIME (PT), P STAT 09/19/2023 4:20 PM LUNCH COUNTER MANAGER FIBRINOGEN, P STAT 09/19/2023 4:20 PM LUNCH COUNTER MANAGER ACTIVATED PARTIAL THROMBOPLASTIN TIME (APTT), P STAT 09/19/2023 4:20 PM LUNCH COUNTER MANAGER LACTATE, B STAT 09/19/2023 4:20 PM LUNCH COUNTER MANAGER GLUCOSE, WHOLE BLOOD STAT 09/19/2023 4:20 PM LUNCH COUNTER MANAGER POTASSIUM, B STAT 09/19/2023 4:20 PM LUNCH COUNTER MANAGER SODIUM, B STAT 09/19/2023 4:20 PM LUNCH COUNTER MANAGER CALCIUM, IONIZED, S/B STAT 09/19/2023 4:20 PM LUNCH COUNTER MANAGER ABG W/COOX STAT 09/19/2023 4:20 PM LUNCH COUNTER MANAGER TRANSFUSE CRYOPRECIPITATE Routine 09/19/2023 3:53 PM LUNCH COUNTER MANAGER TRANSFUSE CRYOPRECIPITATE Routine 09/19/2023 3:51 PM LUNCH COUNTER MANAGER TRANSFUSE RED BLOOD CELLS Routine 09/19/2023 3:50 PM LUNCH COUNTER MANAGER THROMBOELASTOGRAPH, KAOLIN, B STAT 09/19/2023 3:37 PM LUNCH COUNTER MANAGER THROMBOELASTOGRAPH, KAOLIN + HEPARINASE, B STAT 09/19/2023 3:37 PM LUNCH COUNTER MANAGER PLATELETS, B STAT 09/19/2023 3:37 PM LUNCH COUNTER MANAGER PROTHROMBIN TIME (PT), P STAT 09/19/2023 3:37 PM LUNCH COUNTER MANAGER FIBRINOGEN, P STAT 09/19/2023 3:37 PM LUNCH COUNTER MANAGER ACTIVATED PARTIAL THROMBOPLASTIN TIME (APTT), P STAT 09/19/2023 3:37 PM LUNCH COUNTER MANAGER LACTATE, B STAT 09/19/2023 3:37 PM LUNCH COUNTER MANAGER GLUCOSE, WHOLE BLOOD STAT 09/19/2023 3:37 PM LUNCH COUNTER MANAGER POTASSIUM, B STAT 09/19/2023 3:37 PM LUNCH COUNTER MANAGER SODIUM, B STAT 09/19/2023 3:37 PM LUNCH COUNTER MANAGER CALCIUM, IONIZED, S/B STAT 09/19/2023 3:37 PM LUNCH COUNTER MANAGER ABG W/COOX STAT 09/19/2023 3:37 PM LUNCH COUNTER MANAGER TRANSFUSE RED BLOOD CELLS Routine 09/19/2023 3:23 PM LUNCH COUNTER MANAGER PLATELETS, B STAT 09/19/2023 2:46 PM LUNCH COUNTER MANAGER PROTHROMBIN TIME (PT), P STAT 09/19/2023 2:46 PM LUNCH COUNTER MANAGER FIBRINOGEN, P STAT 09/19/2023 2:46 PM LUNCH COUNTER MANAGER ACTIVATED PARTIAL THROMBOPLASTIN TIME (APTT), P STAT 09/19/2023 2:46 PM LUNCH COUNTER MANAGER GLUCOSE, WHOLE BLOOD STAT 09/19/2023 2:46 PM LUNCH COUNTER MANAGER POTASSIUM, B STAT 09/19/2023 2:46 PM LUNCH COUNTER MANAGER SODIUM, B STAT 09/19/2023 2:46 PM LUNCH COUNTER MANAGER CALCIUM, IONIZED, S/B STAT 09/19/2023 2:46 PM LUNCH COUNTER MANAGER ABG W/COOX STAT 09/19/2023 2:46 PM LUNCH COUNTER MANAGER DX CHEST RETAINED SURGICAL ITEM 1 VIEW RAD - Emergent (Fastest; for the most critically ill patients) 09/19/2023 2:30 PM LUNCH COUNTER MANAGER TRANSFUSE PLATELETS Routine 09/19/2023 2 :15 PM LUNCH COUNTER MANAGER TRANSFUSE RED BLOOD CELLS Routine 09/19/2023 2:00 PM LUNCH COUNTER MANAGER PLATELETS, B STAT 09/19/2023 1:40 PM LUNCH COUNTER MANAGER PROTHROMBIN TIME (PT), P STAT 09/19/2023 1:40 PM LUNCH COUNTER MANAGER FIBRINOGEN, P STAT 09/19/2023 1:40 PM LUNCH COUNTER MANAGER ACTIVATED PARTIAL THROMBOPLASTIN TIME (APTT), P STAT 09/19/2023 1:40 PM LUNCH COUNTER MANAGER GLUCOSE, WHOLE BLOOD STAT 09/19/2023 1:40 PM LUNCH COUNTER MANAGER POTASSIUM, B STAT 09/19/2023 1:40 PM LUNCH COUNTER MANAGER SODIUM, B STAT 09/19/2023 1:40 PM LUNCH COUNTER MANAGER CALCIUM, IONIZED, S/B STAT 09/19/2023 1:40 PM LUNCH COUNTER MANAGER ABG W/COOX STAT 09/19/2023 1:40 PM LUNCH COUNTER MANAGER AUTOLOGOUS RED BLOOD CELLS-CELL SALVAGE Routine 09/19/2023 1:28 PM LUNCH COUNTER MANAGER TRANSFUSE FRESH FROZEN PLASMA Routine 09/19/2023 1:24 PM LUNCH COUNTER MANAGER TRANSFUSE PLATELETS Routine 09/19/2023 1 :09 PM LUNCH COUNTER MANAGER LACTATE, B STAT 09/19/2023 12:45 PM LUNCH COUNTER MANAGER GLUCOSE, WHOLE BLOOD STAT 09/19/2023 12:45 PM LUNCH COUNTER MANAGER POTASSIUM, B STAT 09/19/2023 12:45 PM LUNCH COUNTER MANAGER SODIUM, B STAT 09/19/2023 12:45 PM LUNCH COUNTER MANAGER CALCIUM, IONIZED, S/B STAT 09/19/2023 12:45 PM LUNCH COUNTER MANAGER ABG W/COOX STAT 09/19/2023 12:45 PM LUNCH COUNTER MANAGER PLATELETS, B STAT 09/19/2023 12:44 PM LUNCH COUNTER MANAGER PROTHROMBIN TIME (PT), P STAT 09/19/2023 12:44 PM LUNCH COUNTER MANAGER FIBRINOGEN, P STAT 09/19/2023 12:44 PM LUNCH COUNTER MANAGER ACTIVATED PARTIAL THROMBOPLASTIN TIME (APTT), P STAT 09/19/2023 12:44 PM LUNCH COUNTER MANAGER ACT, POCT, B Routine 09/19/2023 12:42 PM LUNCH COUNTER MANAGER HEMOGLOBIN (HGB), POCT, B Routine 09/19/2023 12:17 PM LUNCH COUNTER MANAGER ACT, POCT, B Routine 09/19/2023 12:01 PM LUNCH COUNTER MANAGER GLUCOSE POCT, B Routine 09/19/2023 12:00 PM LUNCH COUNTER MANAGER SURGICAL PATHOLOGY, FROZEN LAB Routine 09/19/2023 11:34 AM LUNCH COUNTER MANAGER Stenosis Aortic Valve Acquired AUTOLOGOUS RED BLOOD CELLS-CELL SALVAGE Routine 09/19/2023 11:33 AM LUNCH COUNTER MANAGER ACT, POCT, B Routine 09/19/2023 11:28 AM LUNCH COUNTER MANAGER ACT, POCT, B Routine 09/19/2023 10:55 AM LUNCH COUNTER MANAGER ACT, POCT, B Routine 09/19/2023 10:24 AM LUNCH COUNTER MANAGER GLUCOSE POCT, B Routine 09/19/2023 10:23 AM LUNCH COUNTER MANAGER TRANSFUSE RED BLOOD CELLS Routine 09/19/2023 10:13 AM LUNCH COUNTER MANAGER (EDMUNDO) - INTRAOPERATIVE WITH COLOR AND LIMITED DOPPLER (PROBE NOT PLACED) Routine 09/19/2023 9:56 AM LUNCH COUNTER MANAGER ACT, POCT, B Routine 09/19/2023 9:51 AM LUNCH COUNTER MANAGER GLUCOSE, WHOLE BLOOD STAT 09/19/2023 9:51 AM LUNCH COUNTER MANAGER POTASSIUM, B STAT 09/19/2023 9:51 AM LUNCH COUNTER MANAGER SODIUM, B STAT 09/19/2023 9:51 AM LUNCH COUNTER MANAGER CALCIUM, IONIZED, S/B STAT 09/19/2023 9:51 AM LUNCH COUNTER MANAGER ABG W/COOX STAT 09/19/2023 9:51 AM LUNCH COUNTER MANAGER ACT, POCT, B Routine 09/19/2023 9:26 AM LUNCH COUNTER MANAGER HEMOGLOBIN (HGB), POCT, B Routine 09/19/2023 9:24 AM LUNCH COUNTER MANAGER LACTATE, B STAT 09/19/2023 8:25 AM LUNCH COUNTER MANAGER GLUCOSE, WHOLE BLOOD STAT 09/19/2023 8:25 AM LUNCH COUNTER MANAGER POTASSIUM, B STAT 09/19/2023 8:25 AM LUNCH COUNTER MANAGER SODIUM, B STAT 09/19/2023 8:25 AM LUNCH COUNTER MANAGER CALCIUM, IONIZED, S/B STAT 09/19/2023 8:25 AM LUNCH COUNTER MANAGER ABG W/COOX STAT 09/19/2023 8:25 AM LUNCH COUNTER MANAGER ACT, POCT, B Routine 09/19/2023 8:24 AM LUNCH COUNTER MANAGER MC ANE CENTRAL LINE GENERIC PERFORMABLE Routine 09/19/2023 8:06 AM LUNCH COUNTER MANAGER LDA ANE INTRODUCER ONLY Routine 09/19/2023 8:06 AM LUNCH COUNTER MANAGER LDA ANE PA CATH Routine 09/19/2023 8:06 AM LUNCH COUNTER MANAGER MC ANE INVASIVE CATH WITH ULTRASOUND Routine 09/19/2023 8:06 AM LUNCH COUNTER MANAGER MD INS/PLC FLOW DIR CATH Routine 09/19/2023 8:06 AM LUNCH COUNTER MANAGER MD US GUIDE VASC ACCESS Routine 09/19/2023 8:06 AM LUNCH COUNTER MANAGER MD ECHO EDMUNDO 2D PLC ONLY Routine 09/19/2023 7:55 AM LUNCH COUNTER MANAGER AIRWAY MANAGEMENT Routine 09/19/2023 7:5 2 AM LUNCH COUNTER MANAGER LDA ANE ARTERIAL LINE INSERTION Routine 09/19/2023 7:43 AM LUNCH COUNTER MANAGER MD ARTL CATH/CNULA MONITOR PERC Routine 09/19/2023 7:43 AM LUNCH COUNTER MANAGER ECHOCARDIOGRAM TRANSESOPHAGEAL 09/19/2023 7:03 AM LUNCH COUNTER MANAGER Stenosis Aortic Valve Acquired ISOLATION PULMONARY VEIN 09/19/2023 7:03 AM LUNCH COUNTER MANAGER Stenosis Aortic Valve Acquired LIGATION LEFT ATRIAL APPENDAGE 09/19/2023 7:03 AM LUNCH COUNTER MANAGER 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 09/19/2023 7:03 AM LUNCH COUNTER MANAGER Stenosis Aortic Valve Acquired REPLACEMENT AORTIC VALVE 09/19/2023 7:03 AM LUNCH COUNTER MANAGER Stenosis Aortic Valve Acquired ANESTHESIOLOGY IMAGE EXAM Routine 09/19/2023 7:00 AM LUNCH COUNTER MANAGER PREPARE RED BLOOD CELLS STAT 09/18/2023 9:04 AM LUNCH COUNTER MANAGER PREPARE RED BLOOD CELLS STAT 09/18/2023 9:04 AM LUNCH COUNTER MANAGER PREPARE RED BLOOD CELLS STAT 09/18/2023 9:04 AM LUNCH COUNTER MANAGER TYPE AND SCREEN Routine 09/18/2023 9:04 AM LUNCH COUNTER MANAGER Stenosis Aortic Valve Acquired Acquired Aortic Valve Disorder BASIC METABOLIC PANEL, S/P Routine 09/18/2023 9:04 AM LUNCH COUNTER MANAGER Stenosis Aortic Valve Acquired Acquired Aortic Valve Disorder CBC WITHOUT DIFFERENTIAL, B Routine 09/18/2023 9:04 AM LUNCH COUNTER MANAGER Stenosis Aortic Valve Acquired Acquired Aortic Valve Disorder METHYLMALONIC ACID (MMA), ISELA, S Routine 09/05/2023 3:22 PM CDT IRON AND TOT IRON-BINDING CAPACITY, S/P Routine 09/05/2023 3:22 PM CDT FERRITIN, S Routine 09/05/2023 3:22 PM CDT RETICULOCYTE PROFILE, B Routine 09/05/2023 3:22 PM CDT VITAMIN B12 ASSAY, S Routine 09/05/2023 3:22 PM CDT C-REACTIVE PROTEIN (CRP), S/P Routine 09/05/2023 3:22 PM CDT FOLATE, S Routine 09/05/2023 3:22 PM CDT CBC-PREOP WITH REFLEX ANEMIA PANEL Routine 09/05/2023 3:22 PM CDT Stenosis Aortic Valve Acquired Acquired Aortic Valve Disorder CT CHEST ANGIOGRAM WITH IV CONTRAST RAD - Routine (most inpatients and all outpatients) 09/05/2023 7:26 AM CDT Stenosis Aortic Valve Acquired from Last 3 Months Results * XR CHEST 1V PORTABLE-Outside Chest Xray (11/11/2023 8:30 AM LUNCH COUNTER MANAGER) Only the most recent of3 resultswithin the time period is included. Narrative IIMS - 11/11/2023 1:45 PM LUNCH COUNTER MANAGER This order has been created and auto-finalized to support the import of outside images. If available, original interpretation can be found on the Media Tab in Chart Review, in Document Viewer, or as an image in QREADS. If a re-interpretation or overread is required please follow defined workflow. ?? Provider Not In System IMG DIAGNOSTIC IM AGING PROCEDURES Performing Organization Address City/State/[facility] Co de Phone Number IIMS NA * INR Reflex, POCT, Blood (11/02/2023 12:42 PM LUNCH COUNTER MANAGER) Only the most recent of9 resultswithin the time period is included. INR Reflex, POCT, B 3.6 11/02/2023 12:41 PM LUNCH COUNTER MANAGER [id number] Comment: ----ADDITIONAL INFORMATION---- Standard intensity warfarin therapeutic range: 2.0 to 3.0 ?? High intensity warfarin therapeutic range: 2.5 to 3.5 Blood (Blood, Capillary) 11/02/2023 12:42 PM LUNCH COUNTER MANAGER 11/02/2023 12:41 PM LUNCH COUNTER MANAGER Kylah Crum M.D. LAB POCT ORDERABLES - DEVICE Performing Organization Address [facility] Co de Phone Number [facility] [address] [place] [address], [facility] [id number] [facility] [place] [address] [place] [address] * (ABNORMAL) Basic Metabolic Panel (10/01/2023 12:02 PM LUNCH COUNTER MANAGER) Only the most recent of15 resultswithin the time period is included. Potassium, P 4.5 3.6 - 5.2 mmol/L 10/01/2023 4:33 PM LUNCH COUNTER MANAGER OWAT Sodium, P 137 135 - 145 mmol/L 10/01/2023 4:33 PM LUNCH COUNTER MANAGER OWAT Chloride, P 99 98 - 107 mmol/L 10/01/2023 4:33 PM LUNCH COUNTER MANAGER OWAT Bicarbonate, P 24 22 - 29 mmol/L 10/01/2023 4:33 PM LUNCH COUNTER MANAGER OWAT Anion Gap, P 14 7 - 15 10/01/2023 4:33 PM LUNCH COUNTER MANAGER OWAT BUN (Blood Urea Nitrogen), P 34(H) 8 - 24 mg/dL 10/01/2023 4:33 PM LUNCH COUNTER MANAGER OWAT Creatinine 2.36(H) 0.74 - 1.35 mg/dL 10/01/2023 4:33 PM LUNCH COUNTER MANAGER OWAT Estimated GFR (eGFR) 29(L) >=60 mL/min/BSA 10/01/2023 4:33 PM LUNCH COUNTER MANAGER OWAT Comment: Estimated GFR calculated using the 2020 CKD_EPI creatinine equation. Calcium, Total, P 8.7(L) 8.8 - 10.2 mg/dL 10/01/2023 4:33 PM LUNCH COUNTER MANAGER OWAT Glucose, P 222(H) 70 - 140 mg/dL 10/01/2023 4:33 PM LUNCH COUNTER MANAGER OWAT Blood (Blood, Venous) 10/01/2023 12:02 PM LUNCH COUNTER MANAGER 10/01/2023 3:43 PM LUNCH COUNTER MANAGER Kylah Crum M.D. LAB BLOOD ADD-ON Performing Organization Address City/[facility]/ZIP Co de Phone Number [facility] [address] [address], [facility] OWAT [facility] [place] [address] [place] [id number] * (ABNORMAL) Prothrombin Time (PT) (09/28/2023 1:41 PM LUNCH COUNTER MANAGER) Only the most recent of15 resultswithin the time period is included. Prothrombin Time, P 18.4(H) 9.4 - 12.5 sec 09/28/2023 4:01 PM LUNCH COUNTER MANAGER OWAT INR 1.6 0.9 - 1.1 09/28/2023 4:01 PM LUNCH COUNTER MANAGER OWAT Comment: ----ADDITIONAL INFORMATION---- Standard intensity warfarin therapeutic range: 2.0 to 3.0 ?? High intensity warfarin therapeutic range: 2.5 to 3.5 Blood (Blood, Venous) 09/28/2023 1:41 PM LUNCH COUNTER MANAGER 09/28/2023 3:32 PM LUNCH COUNTER MANAGER Sammi Kothari APRN, C.N.P., D.N.P. LAB BL OOD ADD-ON [facility] [address] [address], [facility] OWAT [facility] [place] [address] [address] * (ABNORMAL) Glucose, POCT (09/26/2023 11:37 AM LUNCH COUNTER MANAGER) Only the most recent of36 resultswithin the time period is included. Pathologist [facility] Glucose, POCT, B 190(H) 70 - 140 mg/dL 09/26/2023 11:54 AM LUNCH COUNTER MANAGER PCLX Site Capillary 09/26/2023 11:54 AM LUNCH COUNTER MANAGER PCLX Last Intake 3-4 hours 09/26/2023 11:54 AM LUNCH COUNTER MANAGER PCLX Blood 09/26/2023 11:3 7 AM LUNCH COUNTER MANAGER 09/26/2023 11:54 AM LUNCH COUNTER MANAGER Unknown Provider LAB POCT ORDERABLES- MANUAL POC [facility] [address] [place] [address], [facility] PCLX [facility] POC [address] [place] [address] * (ABNORMAL) CBC without Differential (09/26/2023 6:58 AM LUNCH COUNTER MANAGER) Only the most recent of10 resultswithin the time period is included. Pathologist [facility] Hemoglobin 8.3(L) 13.2 - 16.6 g/dL 09/26/2023 8:04 AM LUNCH COUNTER MANAGER DTL Hematocrit 25.5(L) 38.3 - 48.6 % 09/26/2023 8:04 AM LUNCH COUNTER MANAGER DTL Erythrocytes 2.70(L) 4.35 - 5.65 x10(12)/L 09/26/2023 8:04 AM LUNCH COUNTER MANAGER DTL MCV 94.4 78.2 - 97.9 fL 09/26/2023 8:04 AM LUNCH COUNTER MANAGER DTL RBC Distrib Width 13.5 11.8 - 14.5 % 09/26/2023 8:04 AM LUNCH COUNTER MANAGER DTL Platelet Count 214 135 - 317 x10(9)/L 09/26/2023 8:04 AM LUNCH COUNTER MANAGER DTL Leukocytes 6.7 3.4 - 9.6 x10(9)/L 09/26/2023 8:04 AM LUNCH COUNTER MANAGER DTL Blood (Blood, Venous) 09/26/2023 6:58 AM LUNCH COUNTER MANAGER 09/26/2023 7:43 AM LUNCH COUNTER MANAGER Jenny Jay, BLyssa, B.A.O. LAB BLOOD ADD-ON [facility] [address] [place] [address], [place] [facility] [address] [place] [address] * DX Chest AP or PA and Lateral 2 Views (09/25/2023 7:26 AM LUNCH COUNTER MANAGER) Only the most recent of2 resultswithin the time period is included. Anatomical Region Laterality Modality Chest, Thoracic RST LOS, Tho racic ARZ LOS, Thoracic FLA LOS N/A Digital Radiography 09/25/2023 8:59 AM LUNCH COUNTER MANAGER Impressions 09/25/2023 9:01 AM LUNCH COUNTER MANAGER Sternotomy with aortic valve replacement. Mild enlargement of cardiac silhouette. Loop recorder. Trace pleural effusions. Azygos fissure. Aortic calcification. Degenerative arthritis thoracic spine. No pneumothorax. No significant change since 09/23/2023. Narrative 09/25/2023 9:01 AM LUNCH COUNTER MANAGER EXAM: ??DX CHEST AP OR PA AND LATERAL 2 VIEWS Procedure Note Kev Blanco M.D. - 09/25/2023 EXAM: DX CHEST AP OR PA AND LATERAL 2 VIEWS IMPRESSION: Sternotomy with aortic valve replacement. Mild enlargement of cardiacsilhouette. Loop recorder. Trace pleural effusions. Azygos fissure. Aorticcalcification. Degenerative arthritis thoracic spine. No pneumothorax. Nosignificant change since 09/23/2023. Laila Basurto P.A.-C. IMG DIAGNOSTI C IMAGING PROCEDURES * ECG 12 Lead (09/25/2023 4:55 AM LUNCH COUNTER MANAGER) Only the most recent of2 resultswithin the time period is included. Ventricular Rate ECG/Min 69 BPM MUSE MD Interval 140 ms MUSE QRSD Interval 86 ms MUSE QT Interval 420 ms MUSE QTC Interval 450 ms MUSE P Matthews 30 degrees MUSE R Matthews 29 degrees MUSE T Wave Matthews 74 degrees MUSE 09/25/2023 4:55 AM LUNCH COUNTER MANAGER 09/25/2023 5:12 AM LUNCH COUNTER MANAGER Impressions MUSE - 09/25/2023 5:13 AM LUNCH COUNTER MANAGER Normal sinus rhythm Low voltage QRS in limb leads Nonspecific ST and T wave abnormality When compared with ECG of 19-SEP-2023 20:14, No significant change was found Reviewed by MARIELA Dodson Narrative Procedure Note Joe Kumar Jr., M.D. - 09/25/2023 IMPRESSION: Normal sinus rhythm Low voltage QRS in limb leads Nonspecific ST and T wave abnormality When compared with ECG of 19-SEP-2023 20:14, No significant change was found Reviewed by MARIELA Dodson Laila Basurto P.A.-C. ECG ORDERABLE S MUSE NA * (TTE) 2D ECHO DOPPLER COLOR (09/24/2023 3:26 PM LUNCH COUNTER MANAGER) Ejection Fraction 64 MC CV EIMS Mid-Ascending Aorta 37 MC CV EIMS LV End-Diastolic Diameter 46 MC CV EIMS LV End-Systolic Diameter 29 MC CV EIMS MV E Velocity 1.1 MC CV EIMS MV A Velocity 0.3 MC CV EIMS MV E/A 3.67 MC CV EIMS Left ventricular stroke volume index 42 MC CV EIMS Cardiac Output 5.96 MC CV EIMS Cardiac Index 2.94 MC CV EIMS TR Vmax 2.4 MC CV EIMS RA Pressure 10 MC CV EIMS RV Systolic Pressure 33 MC CV EIMS AV mean gradient 11 MC CV EIMS Aortic valve area 2.12 MC CV EIMS Aortic Valve Area Index 1.04 MC CV EIMS Aortic Valve Dimensionless Index 0.51 MC CV EIMS Aortic Valve Systolic Peak Velocity 2.4 MC CV EIMS Anatomical Region Laterality Modality Echocardiography 09/24/2023 1:57 PM LUNCH COUNTER MANAGER Impressions 09/24/2023 5:48 PM LUNCH COUNTER MANAGER Echocardiogram performed per dismissal echo protocol. Status post coronary artery bypass graft(s) (x1, 19-SEP-2023). Status post left atrial appendage surgical ligation (19-SEP-2023). Status post Maze procedure (19-SEP-2023). Anemia, thyrotoxicosis, or another high output state could contribute to the increased Doppler velocities (8.3 g/dL). Last full echocardiogram performed 08/17/2023. LEFT VENTRICLE:Normal left ventricular chamber size. Calculated 2-D linear left ventricular ejection fraction 64%. Abnormal ventricular septal motion - post-operative. No regional wall motion abnormalities. Indeterminate left ventricular filling pressure. RIGHT VENTRICLE:Normal right ventricular chamber size. 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 Estimated right ventricular systolic pressure 33 mmHg (right atrial pressure of 10 mmHg). ATRIA:Enlarged left atrial size by visual estimate. Normal right atrial size. CARDIAC VALVES:Status post 23 mm On-X mechanical aortic valve prosthesis (19-SEP-2023). Aortic valve prosthesis systolic mean Doppler gradient 11 mmHg. Aortic valve prosthetic orifice area by Doppler: 2.12 cm2 Trivial aortic valve prosthetic regurgitation. Trivial aortic valve periprosthetic regurgitation probably. Thickened mitral valve. Mild mitral valve regurgitation. Normal tricuspid valve. Trivial tricuspid valve regurgitation. OTHER ECHO FINDINGS:Enlarged inferior vena cava size with normal inspiratory collapse (>50%). Normal mid ascending aorta diameter of 37 mm. Tiny, insignificant posterior pericardial effusion. For the complete report, see the Order-Level Documents. Narrative 09/24/2023 5:48 PM LUNCH COUNTER MANAGER For the complete report, see the Order-Level Documents. Hemodynamics Heart Rate: 70 BPM Blood Pressure: 118 / 60 mmHg ECG: Sinus rhythm Final Impressions 1. Status post 23 mm On-X mechanical aortic valve prosthesis , CABG x1, left atrial MAZE procedure and DAHIANA amputation (19-SEP-2023). 2. Aortic prosthetic disc not well seen. Mean aortic prosthetic gradient 11 mmHg; EOA 2.1 cm2. Trivial (washing jets) prosthetic regurgitation; possible trace (anterior) periprosthetic regurgitation. 3. Normal left ventricular chamber size. Calculated EF 64%. No regional wall motion abnormalities. 4. Normal right ventricular chamber size with probably mildly reduced overall RV systolic function (endocardium not well seen; longitudinal function appear reduced). 5. Estimated right ventricular systolic pressure 33 mmHg (systolic blood pressure 118 mmHg). 6. Enlarged inferior vena cava size with normal inspiratory collapse (>50%). Tiny posterior pericardial effusion. 7. Anemia, thyrotoxicosis, or another high output state could contribute to the increased Doppler velocities (8.3 g/dL). Procedure Note Venancio Linn M.B.B.S., Ph.D. - 09/24/2023 For the complete report, see the Order-Level Documents. Hemodynamics Heart Rate: 70 BPM Blood Pressure: 118 / 60 mmHg ECG: Sinus rhythm Final Impressions 1. 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 2. Aortic prosthetic disc not well seen. Mean aortic prosthetic cxfvrcoh18 mmHg; EOA 2.1 cm2. Trivial (washing jets) prosthetic regurgitation;possible trace (anterior) periprosthetic regurgitation. 3. Normal left ventricular chamber size. Calculated EF 64%. No regionalwall motion abnormalities. 4. Normal right ventricular chamber size with probably mildly reducedoverall RV systolic function (endocardium not well seen; longitudinalfunction appear reduced). 5. Estimated right ventricular systolic pressure 33 mmHg (systolic bloodpressure 118 mmHg). 6. Enlarged inferior vena cava size with normal inspiratory collapse(>50%). Tiny posterior pericardial effusion. 7. Anemia, thyrotoxicosis, or another high output state could contributeto the increased Doppler velocities (8.3 g/dL). Findings Echocardiogram performed per dismissal echo protocol. Status post coronaryartery bypass graft(s) (x1, 19-SEP-2023). Status post left atrialappendage surgical ligation (19-SEP-2023). Status post Maze procedure(19-SEP-2023). Anemia, thyrotoxicosis, or another high output state couldcontribute to the increased Doppler velocities (8.3 g/dL). Last fullechocardiogram performed 08/17/2023. LEFT VENTRICLE:Normal left ventricular chamber size. Calculated 2-D linearleft ventricular ejection fraction 64%. Abnormal ventricular septal motion- post-operative. No regional wall motion abnormalities. Indeterminateleft ventricular filling pressure. RIGHT VENTRICLE:Normal right ventricular chamber size. Mildly reducedright ventricular systolic function (RV endocardium not well seen).Estimated right ventricular systolic pressure 33 mmHg (right atrialpressure of 10 mmHg). ATRIA:Enlarged left atrial size by visual estimate. Normal right atrialsize. CARDIAC VALVES:Status post 23 mm On-X mechanical aortic valve prosthesis(19-SEP-2023). Aortic valve prosthesis systolic mean Doppler gradient 11mmHg. Aortic valve prosthetic orifice area by Doppler: 2.12 cm2 Trivialaortic valve prosthetic regurgitation. Trivial aortic valve periprostheticregurgitation probably. Thickened mitral valve. Mild mitral valveregurgitation. Normal tricuspid valve. Trivial tricuspid valveregurgitation. OTHER ECHO FINDINGS:Enlarged inferior vena cava size with normalinspiratory collapse (>50%). Normal mid ascending aorta diameter of 37 mm.Tiny, insignificant posterior pericardial effusion. For the complete report, see the Order-Level Documents. Laila Basurto P.A.-C. CV ECHO PROCE ESTERES * (ABNORMAL) Hemoglobin (09/23/2023 3:44 PM LUNCH COUNTER MANAGER) Pathologist [facility] Hemoglobin 8.1(L) 13.2 - 16.6 g/dL 09/23/2023 3:52 PM LUNCH COUNTER MANAGER STMA Blood (Blood, Venous) 09/23/2023 3:44 PM LUNCH COUNTER MANAGER 09/23/2023 3:49 PM LUNCH COUNTER MANAGER Laila Basurto P.A.-C. LAB BLOOD ADD -ON [facility] [address] [place] [address], [facility] [address] [place] [address] * (ABNORMAL) Hepatic Function Panel (09/23/2023 7:31 AM LUNCH COUNTER MANAGER) Bilirubin, Total, S 0.5 0.0 - 1.2 mg/dL 09/23/2023 9:47 AM LUNCH COUNTER MANAGER DTL Bilirubin, Direct, S <0.2 0.0 - 0.3 mg/dL 09/23/2023 9:47 AM LUNCH COUNTER MANAGER DTL Aspartate Aminotransferase (AST), S 21 8 - 48 U/L 09/23/2023 9:47 AM LUNCH COUNTER MANAGER DTL Alanine Aminotransferase (ALT), S 9 7 - 55 U/L 09/23/2023 9:47 AM LUNCH COUNTER MANAGER DTL Alkaline Phosphatase, S 63 40 - 129 U/L 09/23/2023 9:47 AM LUNCH COUNTER MANAGER DTL Albumin, S 3.0(L) 3.5 - 5.0 g/dL 09/23/2023 9:47 AM LUNCH COUNTER MANAGER DTL Protein, Total, S 4.9(L) 6.3 - 7.9 g/dL 09/23/2023 9:47 AM LUNCH COUNTER MANAGER DTL Blood (Blood, Venous) 09/23/2023 7:31 AM LUNCH COUNTER MANAGER 09/23/2023 9:19 AM LUNCH COUNTER MANAGER Laila Basurto P.A.-C. LAB BLOOD ADD -ON Performing Organization Address City/[facility]/ZIP Co de Phone Number [facility] [address] [place] [address], [facility] DTL [facility] [address] [place] [address] * Transfuse Red Blood Cells : (09/22/2023 4:21 PM LUNCH COUNTER MANAGER) Only the most recent of5 resultswithin the time period is included. Laila Basurto P.A.-C. BLOOD TRANSFU RAHUL ORDERABLES * Type and Screen (with Reflex Antibody ID) (09/22/2023 7:01 AM LUNCH COUNTER MANAGER) Only the most recent of2 resultswithin the time period is included. Pathologist [facility] ABORh A Neg Not applicable 09/22/2023 2:10 PM LUNCH COUNTER MANAGER STRM Antibody Screen Negative Negative 09/22/2023 2:19 PM LUNCH COUNTER MANAGER STRM Type & Screen Expiration 09/25/2023 23:59 09/22/2023 2:10 PM LUNCH COUNTER MANAGER STRM Testing Location Mercedes DEFAULT 09/22/2023 1:41 PM LUNCH COUNTER MANAGER STRM Blood (Blood, Venous) 09/22/2023 7:01 AM LUNCH COUNTER MANAGER 09/22/2023 1:41 PM LUNCH COUNTER MANAGER Laila Basurto P.A.-C. LAB BLOOD BAN K TEST ORDERABLES Performing Organization Address [facility]/ZIP Co de Phone Number [facility] [address] [place] [address], [facility] [address] [place] [address] * Patient Status (09/21/2023 6:35 AM LUNCH COUNTER MANAGER) Only the most recent of4 resultswithin the time period is included. Pathologist [facility] FIO2 0.21 0.21=AIR 09/21/2023 6:39 AM LUNCH COUNTER MANAGER STMA Spont. breaths/min 18 09/21/2023 6:39 AM LUNCH COUNTER MANAGER STMA Blood 09/21/2023 6:35 AM LUNCH COUNTER MANAGER 09/21/2023 6:39 AM LUNCH COUNTER MANAGER Bryce Wills M.D. LAB BLOOD NON ADD-ON [facility] [address] [place] [address], [facility] [address] [place] [address] * (ABNORMAL) Blood Gas with Coox, Arterial (09/21/2023 6:35 AM LUNCH COUNTER MANAGER) Only the most recent of10 resultswithin the time period is included. Pathologist [facility] pO2 67(L) 83 - 108 mm Hg 09/21/2023 6:41 AM LUNCH COUNTER MANAGER STMA pCO2 46 35 - 48 mm Hg 09/21/2023 6:41 AM LUNCH COUNTER MANAGER STMA pH 7.41 7.35 - 7.45 pH 09/21/2023 6:41 AM LUNCH COUNTER MANAGER STMA Base Excess 4(H) -2 - 3 mmol/L 09/21/2023 6:41 AM LUNCH COUNTER MANAGER STMA HCO3 29(H) 22 - 26 mmol/L 09/21/2023 6:41 AM LUNCH COUNTER MANAGER STMA Hemoglobin, Venous 8.2(L) 13.2 - 16.6 g/dL 09/21/2023 6:41 AM LUNCH COUNTER MANAGER STMA O2Hb 92.5(L) 94.0 - 98.0 % 09/21/2023 6:41 AM LUNCH COUNTER MANAGER STMA COHb 2.0 <3.0 % 09/21/2023 6:42 AM LUNCH COUNTER MANAGER STMA MetHb <1.0 <1.5 % 09/21/2023 6:41 AM LUNCH COUNTER MANAGER STMA CtO2 10.8(L) 18.0 - 21.0 vol % 09/21/2023 6:42 AM LUNCH COUNTER MANAGER STMA Arterial Sample Site Art Line 09/21/2023 6:41 AM LUNCH COUNTER MANAGER STMA Comment:Mina's test not don e. Blood (Blood, Arterial) 09/21/2023 6:35 AM LUNCH COUNTER MANAGER 09/21/2023 6:39 AM LUNCH COUNTER MANAGER Bryce Wills M.D. LAB BLOOD NON ADD-ON [facility] [address] [place] [address] * (ABNORMAL) Phosphorus Inorganic (09/21/2023 5:11 AM LUNCH COUNTER MANAGER) Phosphorus (Inorganic), S 5.4(H) 2.5 - 4.5 mg/dL 09/21/2023 6:03 AM LUNCH COUNTER MANAGER DTL Blood (Blood, Venous) 09/21/2023 5:11 AM LUNCH COUNTER MANAGER 09/21/2023 5:50 AM LUNCH COUNTER MANAGER Enmanuel Edward P.A.-C. LAB BLOOD ADD-ON [facility] [address] [place] [address], [facility] [address] [place] [address] * (ABNORMAL) Magnesium (09/21/2023 5:11 AM LUNCH COUNTER MANAGER) Only the most recent of2 resultswithin the time period is included. Magnesium, S 2.4(H) 1.7 - 2.3 mg/dL 09/21/2023 6:03 AM LUNCH COUNTER MANAGER DTL Blood (Blood, Venous) 09/21/2023 5:11 AM LUNCH COUNTER MANAGER 09/21/2023 5:50 AM LUNCH COUNTER MANAGER Enmanuel Edward P.A.-C. LAB BLOOD ADD-ON Performing Organization Address City/[facility] Co de Phone Number [facility] [address] DTL [facility] [address] [place] [address] * Potassium (09/20/2023 8:33 PM LUNCH COUNTER MANAGER) Potassium, P 5.0 3.6 - 5.2 mmol/L 09/20/2023 8:56 PM LUNCH COUNTER MANAGER STMA Blood (Blood, Venous) 09/20/2023 8:33 PM LUNCH COUNTER MANAGER 09/20/2023 8:38 PM LUNCH COUNTER MANAGER Yenifer Mercado P.A.-C. LAB BLOOD ADD -ON Performing Organization Address [facility] Co de Phone Number [facility] [address] [place] [address] * Lactate, Whole Blood (09/20/2023 4:11 AM LUNCH COUNTER MANAGER) Only the most recent of8 resultswithin the time period is included. Pathologist [facility] Lactate, B 1.5 0.5 - 2.2 mmol/L 09/20/2023 4:18 AM LUNCH COUNTER MANAGER [facility] Blood (Blood, Arterial) 09/20/2023 4:11 AM LUNCH COUNTER MANAGER 09/20/2023 4:15 AM LUNCH COUNTER MANAGER Lobito Melgar APRN, C.N.P., M.S.N. L AB BLOOD NON ADD-ON Performing Organization Address City/[facility] Co de Phone Number [facility] [address] [place] [address] * (ABNORMAL) Blood Gas without Coox, Arterial (09/20/2023 4:11 AM LUNCH COUNTER MANAGER) pO2 79(L) 83 - 108 mm Hg 09/20/2023 4:18 AM LUNCH COUNTER MANAGER STMA pCO2 43 35 - 48 mm Hg 09/20/2023 4:18 AM LUNCH COUNTER MANAGER STMA pH 7.37 7.35 - 7.45 pH 09/20/2023 4:18 AM LUNCH COUNTER MANAGER STMA Base Excess 0 -2 - 3 mmol/L 09/20/2023 4:18 AM LUNCH COUNTER MANAGER STMA HCO3 25 22 - 26 mmol/L 09/20/2023 4:18 AM LUNCH COUNTER MANAGER STMA Arterial Sample Site Art Line 09/20/2023 4:18 AM LUNCH COUNTER MANAGER STMA Comment:Mina's test not don e. Blood (Blood, Arterial) 09/20/2023 4:11 AM LUNCH COUNTER MANAGER 09/20/2023 4:15 AM LUNCH COUNTER MANAGER Jenny Jay, Nicky.Ch., B.A.O. LAB BLOOD NON ADD-ON Performing Organization Address City/[facility]/ZIP Co de Phone Number [address] [place] [address] * APTT (Activated Partial Thromboplastin Time) (09/20/2023 4:09 AM LUNCH COUNTER MANAGER) Only the most recent of7 resultswithin the time period is included. Activated Partial Thrombopl Time, P 26 25 - 37 sec 09/20/2023 5:19 AM LUNCH COUNTER MANAGER DTL Blood (Blood, Venous) 09/20/2023 4:09 AM LUNCH COUNTER MANAGER 09/20/2023 4:43 AM LUNCH COUNTER MANAGER Jenny Jay, Nicky.Ch., B.A.O. LAB BLOOD ADD-ON Performing Organization Address City/[facility]/ZIP Co de Phone Number [address] [place] [address] * DX Chest Portable with AM Rounds 1 View (09/20/2023 3:33 AM LUNCH COUNTER MANAGER) Anatomical Region Laterality Modality Chest, Thoracic RST LOS, Tho racic ARZ LOS, Thoracic FLA LOS N/A Digital Radiography 09/20/2023 5:18 AM LUNCH COUNTER MANAGER Impressions 09/20/2023 5:20 AM LUNCH COUNTER MANAGER Compared to 09/19/2023. Extubation. Removal of right IJ SGC, sheath remains. Slightly decreased lung volumes. No other significant change. Pulmonary vascular congestion. Bibasilar atelectasis. No definite pneumothorax. Trace pneumomediastinum. Enlarged cardiac silhouette. Retrocardiac atelectasis/consolidation. Azygous fissure. Sternotomy. Mediastinal clips and drains. Loop recorder. Narrative 09/20/2023 5:20 AM LUNCH COUNTER MANAGER EXAM: ??DX CHEST PORTABLE WITH AM ROUNDS 1 VIEW Procedure Note Finn Johnson M.D., M.S. - 09/20/2023 EXAM: DX CHEST PORTABLE WITH AM ROUNDS 1 VIEW IMPRESSION: Compared to 09/19/2023. Extubation. Removal of right IJ SGC, sheathremains. Slightly decreased lung volumes. No other significant change. Pulmonary vascular congestion. Bibasilaratelectasis. No definite pneumothorax. Trace pneumomediastinum. Enlargedcardiac silhouette. Retrocardiac atelectasis/consolidation. Azygousfissure. Sternotomy. Mediastinal clips and drains. Loop recorder. Jenny Jay, B.Ch., B.A.O. IMG DIAGNOSTIC IMAGING PROCEDURES * (ABNORMAL) Tissue Inhibitor of Metalloproteinase 2 (TIMP-2) and Insulin-like Growth Factor Binding Protein 7 (IGFBP-7) Risk Score, Random, Urine (09/20/2023 3:24 AM LUNCH COUNTER MANAGER) TIMP2/IGFBP7 MANJEET Risk Score, U 0.45(H) <0.30 (ng/mL)(2) /1000 09/20/2023 4:12 AM LUNCH COUNTER MANAGER [facility] Comment: ----ADDITIONAL INFORMATION---- <0.30= <0.30 is considered low risk for acute kidney injury. 0.30-2.00= 0.30-2.00 indicates increased risk for acute kidney injury. >2.00= >2.00 indicates high risk for acute kidney injury. Urine (Urine, Midstream) 09/20/2023 3:24 AM LUNCH COUNTER MANAGER 09/20/2023 3:24 AM LUNCH COUNTER MANAGER Jenny Jay, BLyssa, B.A.O. LAB URINE ORDERABLES Performing Organization Address City/[facility]/ZIP Co de Phone Number [facility] [address] [place], [place] [id number] [place] [address] 200 [place] [address] * (ABNORMAL) Lactate (09/19/2023 7:43 PM LUNCH COUNTER MANAGER) Lactate, P 7.0(H) 0.5 - 2.2 mmol/L 09/19/2023 8:04 PM LUNCH COUNTER MANAGER [facility] Blood (Blood, Venous) 09/19/2023 7:43 PM LUNCH COUNTER MANAGER 09/19/2023 7:49 PM LUNCH COUNTER MANAGER Susu Fajardo LAB BLOOD NON ADD-ON Performing Organization Address City/[facility]/ZIP Co de Phone Number [facility] [address] [place] [address], [facility] [address] [place] [address] * DX Chest Portable 1 View (09/19/2023 5:45 PM LUNCH COUNTER MANAGER) Anatomical Region Laterality Modality Chest, Thoracic RST LOS, Tho racic ARZ LOS, Thoracic FLA LOS N/A Digital Radiography 09/19/2023 7:33 PM LUNCH COUNTER MANAGER Impressions 09/19/2023 8:26 PM LUNCH COUNTER MANAGER Interval retraction of the endotracheal tube, with tip now in the mid thoracic trachea. Otherwise no significant changes since 2:23 PM. Right IJ Naturita-Sepideh catheter with tip in the main pulmonary artery. Sternotomy wires and mediastinal surgical clips. Aortic valve replacement. Mediastinal drains. Mild bilateral interstitial thickening and perihilar opacities. No definite pleural effusion. Aortic calcifications. Narrative 09/19/2023 8:26 PM LUNCH COUNTER MANAGER EXAM: ??DX CHEST PORTABLE 1 VIEW Procedure Note Bhaskar Rob M.B.B.S., M.D. - 09/19/2023 EXAM: DX CHEST PORTABLE 1 VIEW IMPRESSION: Interval retraction of the endotracheal tube, with tip now in the midthoracic trachea. Otherwise no significant changes since 2:23 PM. Right IJSwan-Sepideh catheter with tip in the main pulmonary artery. Sternotomy wiresand mediastinal surgical clips. Aortic valve replacement. Mediastinal drains. Mildbilateral interstitial thickening and perihilar opacities. No definitepleural effusion. Aortic calcifications. Jenny Jay, B., B.A.O. IMG DIAGNOSTIC IMAGING PROCEDURES * Transfuse Platelets : (09/19/2023 5:19 PM LUNCH COUNTER MANAGER) Only the most recent of3 resultswithin the time period is included. Radha Iqbal M.D. BLOOD TRANSFUSION OR DERABLES * (ABNORMAL) Cystatin C with Estimated GFR (09/19/2023 5:19 PM LUNCH COUNTER MANAGER) eGFR by Cystatin C 59(L) >60 mL/min/BSA 09/19/2023 8:00 PM LUNCH COUNTER MANAGER DTL Comment: Estimated GFR calculated using the CKD-EPI Cystatin C (2012) equation. ----ADDITIONAL INFORMATION---- Cystatin C-based eGFR may differ substantially from creatinine- based eGFR in patients with abnormal muscle mass or acutely changing renal function. ??Please interpret together with relevant clinical features. On 04/07/2021 the cystatin C assay method changed. Cystatin C eGFR results > 50 ml/min/1.73m2 are approximately 10% lower with the new assay. Cystatin C 1.19 0.67 - 1.21 mg/L 09/19/2023 8:00 PM LUNCH COUNTER MANAGER DTL Blood (Blood, Arterial Line) 09/19/2023 5:19 PM LUNCH COUNTER MANAGER 09/19/2023 5:53 PM LUNCH COUNTER MANAGER Zoraida Salmeron M.D., Ph.D. LAB BLOOD AD D-ON Performing Organization Address City/[facility]/ZIP Co de Phone Number [facility] [address] [place] [address], [facility] DTL [facility] [address] [place] [address] * Fibrinogen (09/19/2023 5:19 PM LUNCH COUNTER MANAGER) Only the most recent of6 resultswithin the time period is included. Fibrinogen, P 269 200 - 393 mg/dL 09/19/2023 5:30 PM LUNCH COUNTER MANAGER [facility] Blood (Blood, Venous) 09/19/2023 5:19 PM LUNCH COUNTER MANAGER 09/19/2023 5:22 PM LUNCH COUNTER MANAGER Jenny Jay, B.Ch., B.A.O. LAB BLOOD ADD-ON Performing Organization Address [facility] Co de Phone Number [facility] [address] [place] [address] * Sodium, B (09/19/2023 4:20 PM LUNCH COUNTER MANAGER) Only the most recent of7 resultswithin the time period is included. Sodium, B 139 135 - 145 mmol/L 09/19/2023 4:23 PM LUNCH COUNTER MANAGER [facility] Blood (Blood, Arterial Line) 09/19/2023 4:20 PM LUNCH COUNTER MANAGER 09/19/2023 4:20 PM LUNCH COUNTER MANAGER Rowena Antonio M.D. LAB BLOOD NON A DD-ON Performing Organization Address [facility] Co de Phone Number [facility] [address] [place] [address], [facility] [address] [place] [address] * Potassium, Blood (09/19/2023 4:20 PM LUNCH COUNTER MANAGER) Only the most recent of7 resultswithin the time period is included. Potassium, B 4.7 3.6 - 5.2 mmol/L 09/19/2023 4:23 PM LUNCH COUNTER MANAGER [facility] Blood (Blood, Arterial Line) 09/19/2023 4:20 PM LUNCH COUNTER MANAGER 09/19/2023 4:20 PM LUNCH COUNTER MANAGER Rowena Antonio M.D. LAB BLOOD NON A DD-ON Performing Organization Address City/[facility]/ZIP Co de Phone Number [facility] [address] [place] [address] * (ABNORMAL) Glucose, Whole Blood (09/19/2023 4:20 PM LUNCH COUNTER MANAGER) Only the most recent of7 resultswithin the time period is included. Glucose 152(H) 70 - 140 mg/dL 09/19/2023 4:23 PM LUNCH COUNTER MANAGER [facility] Blood (Blood, Arterial Line) 09/19/2023 4:20 PM LUNCH COUNTER MANAGER 09/19/2023 4:20 PM LUNCH COUNTER MANAGER Rowena Antonio M.D. LAB BLOOD ADD-O N Performing Organization Address [facility] Co de Phone Number [facility] [address] [place] [address] * (ABNORMAL) Platelet Count (09/19/2023 4:20 PM LUNCH COUNTER MANAGER) Only the most recent of5 resultswithin the time period is included. Platelet Count 94(L) 135 - 317 x10(9)/L 09/19/2023 4:27 PM LUNCH COUNTER MANAGER [facility] Blood (Blood, Arterial Line) 09/19/2023 4:20 PM LUNCH COUNTER MANAGER 09/19/2023 4:20 PM LUNCH COUNTER MANAGER Rowena Antonio M.D. LAB BLOOD ADD-O N Performing Organization Address City/[facility]/ZIP Co de Phone Number [facility] [address] [place] [address] [place] [address] * Calcium, Ionized (09/19/2023 4:20 PM LUNCH COUNTER MANAGER) Only the most recent of7 resultswithin the time period is included. [facility] Calcium, Ionized, B 5.02 4.65 - 5.30 mg/dL 09/19/2023 4:23 PM LUNCH COUNTER MANAGER [facility] Blood (Blood, Arterial Line) 09/19/2023 4:20 PM LUNCH COUNTER MANAGER 09/19/2023 4:20 PM LUNCH COUNTER MANAGER Rowena Antonio M.D. LAB BLOOD NON A DD-ON [facility] [address] [place] [address], [facility] [address] [place] [address] * Transfuse Pooled Cryoprecipitate: (09/19/2023 3:54 PM LUNCH COUNTER MANAGER) Only the most recent of2 resultswithin the time period is included. Rowena Antonio M.D. BLOOD TRANSFUSI ON ORDERABLES * Thromboelastograph, Kaolin + Heparinase (09/19/2023 3:37 PM LUNCH COUNTER MANAGER) [facility] R-Heparinase, TEG 4.7 1.9 - 6.5 min 09/19/2023 5:46 PM LUNCH COUNTER MANAGER [facility] K-Heparinase, TEG 1.3 1.0 - 1.9 min 09/19/2023 5:46 PM LUNCH COUNTER MANAGER [facility] Angle-Heparina se, TEG 72.0 63.5 - 75.1 degrees 09/19/2023 5:46 PM LUNCH COUNTER MANAGER [facility] MA-Heparinase, TEG 65.9 57.7 - 69.3 mm 09/19/2023 5:46 PM LUNCH COUNTER MANAGER [facility] Nj55-Wmttudwso e, TEG 0.0 0.0 - 4.7 % 09/19/2023 5:46 PM LUNCH COUNTER MANAGER [facility] Mb06-Fzdyaltem e, TEG 1.1 0.0 - 15.0 % 09/19/2023 5:46 PM LUNCH COUNTER MANAGER [facility] Blood (Blood, Arterial Line) 09/19/2023 3:37 PM LUNCH COUNTER MANAGER 09/19/2023 3:37 PM LUNCH COUNTER MANAGER Rowena Antonio M.D. LAB BLOOD NON A DD-ON [facility] [address] [place] [address], [facility] STMA [facility] [address] [place] [address] * Thromboelastograph, Kaolin, Blood (09/19/2023 3:37 PM LUNCH COUNTER MANAGER) R, Kaolin, TEG 4.8 4.0 - 9.0 min 09/19/2023 5:46 PM LUNCH COUNTER MANAGER [facility] K, Kaolin, TEG 1.3 1.0 - 1.8 min 09/19/2023 5:46 PM LUNCH COUNTER MANAGER [facility] Angle, Kaolin, TEG 70.0 64.0 - 78.1 degrees 09/19/2023 5:46 PM LUNCH COUNTER MANAGER [facility] MA, Kaolin, TEG 65.4 57.1 - 72.6 mm 09/19/2023 5:46 PM LUNCH COUNTER MANAGER [facility] Ly30, Kaolin, TEG 0.0 0.0 - 4.8 % 09/19/2023 5:46 PM LUNCH COUNTER MANAGER [facility] Blood (Blood, Arterial Line) 09/19/2023 3:37 PM LUNCH COUNTER MANAGER 09/19/2023 3:37 PM LUNCH COUNTER MANAGER Rowena Antonio M.D. LAB BLOOD NON A DD-ON [facility] [address] [place] [address], [facility] STMA [facility] [address] [place] [address] * DX Chest Retained Surgical Item 1 View (09/19/2023 2:30 PM LUNCH COUNTER MANAGER) Anatomical Region Laterality Modality Chest, Thoracic RST LOS, Tho racic ARZ LOS, Thoracic FLA LOS N/A Digital Radiography 09/19/2023 2:32 PM LUNCH COUNTER MANAGER Impressions 09/19/2023 2:39 PM LUNCH COUNTER MANAGER The aforementioned object in question is not identified. New sternotomy, mediastinal clips, AVR, mediastinal drains, right IJ Naturita-Sepideh catheter tip at the MPA are identified. Likely small amount of mediastinal air. ET tube tip is low lying, approximately 1 cm above the blaine, correlation with chin position is recommended. Loop recorder. Shallower inspiration with accentuation of the cardiac silhouette and vascular crowding. Discussed with Dr. Stanford at 2:36 PM on 09/19/2023. Narrative 09/19/2023 2:39 PM LUNCH COUNTER MANAGER EXAM: DX CHEST RETAINED SURGICAL ITEM 1 VIEW COMPARISON: 08/19/2023 OBJECT IN QUESTION: Curve needle 1-2 cm (SURGERY: AVR, CABG) Procedure Note Juan Merritt M.D. - 09/19/2023 EXAM: DX CHEST RETAINED SURGICAL ITEM 1 VIEW COMPARISON: 08/19/2023 OBJECT IN QUESTION: Curve needle 1-2 cm (SURGERY: AVR, CABG) IMPRESSION: The aforementioned object in question is not identified. New sternotomy,mediastinal clips, AVR, mediastinal drains, right IJ Naturita-Sepideh cathetertip at the MPA are identified. Likely small amount of mediastinal air. ETtube tip is low lying, approximately 1 cm above the blaine, correlation with chin position isrecommended. Loop recorder. Shallower inspiration with accentuation of thecardiac silhouette and vascular crowding. Discussed with Dr. Stanford at 2:36 PM on 09/19/2023. Sarah Miller M.D., M.P.H. IMG DIAGNOSTI C IMAGING PROCEDURES * Transfuse autologous RBC (Cell Salvage) : (09/19/2023 1:28 PM LUNCH COUNTER MANAGER) Only the most recent of2 resultswithin the time period is included. Radha Iqbal M.D. BLOOD TRANSFUSION OR DERABLES * Transfuse Fresh Frozen Plasma : (09/19/2023 1:24 PM LUNCH COUNTER MANAGER) Radha Iqbal M.D. BLOOD TRANSFUSION OR DERABLES * ACT (Activated Clotting Time), POCT (09/19/2023 12:42 PM LUNCH COUNTER MANAGER) Only the most recent of8 resultswithin the time period is included. Activated Clotting Time 126 82 - 152 sec 09/19/2023 12:45 PM LUNCH COUNTER MANAGER PCLX 09/19/2023 12:4 2 PM LUNCH COUNTER MANAGER 09/19/2023 12:45 PM LUNCH COUNTER MANAGER Unknown Provider LAB POCT ORDERABLES - DEVICE Performing Organization Address City/[facility] Co de Phone Number [facility] [address] [place] [address], [facility] PCLX [facility] POC [address] [place] [address] * (ABNORMAL) Hemoglobin (HGB), POCT (09/19/2023 12:17 PM LUNCH COUNTER MANAGER) Only the most recent of2 resultswithin the time period is included. Hemoglobin, POCT, B 8.7(L) 13.2 - 16.6 g/dL 09/19/2023 12:23 PM LUNCH COUNTER MANAGER PCSM Blood 09/19/2023 12:1 7 PM LUNCH COUNTER MANAGER 09/19/2023 12:23 PM LUNCH COUNTER MANAGER Unknown Provider LAB POCT ORDERABLES - DEVICE Performing Organization Address City/[facility] Co de Phone Number POC RST [facility] [address] [place] [address], [facility] PCSM [facility] POC [address] [facility] [place] [address] * Surgical Pathology, Frozen Lab (09/19/2023 11:34 AM LUNCH COUNTER MANAGER) 09/25/2023 10:47 AM LUNCH COUNTER MANAGER [facility] Participated in the Interpretation Amber Gutierrez M.D. -Pathology Resident 09/25/2023 10:47 AM LUNCH COUNTER MANAGER [facility] Report electronically signed by Zohreh De La Cruz M.D. I verify that I have examined all relevant slides/materials for the specimen(s) and rendered or confirmed the diagnosis. 09/25/2023 10:47 AM LUNCH COUNTER MANAGER [facility] Gross Description A. ??Received fresh labeled with the patient's name, medical record number, and designated as heart, left atrial appendage. ??It consists of a 2.6 x 2.4 x 1.3 cm atrial appendage without mural thrombus. ??E [employer] Analyst sections are submitted for microscopy in cassette A1. ??Grossed by Teresa Qureshi M.S., PA([facility]). B. ??Received fresh labeled with the patient's name, medical record number and designated as heart, aortic valve. ??It consists of three cusps, showing moderate calcification, no commissural fusion, and an approximate annular diameter of 3.7 cm.Multiple Lambl excrescences are identified on the cusps, up to 0.1 cm in length. ??Multiple lunular fenestrations are identified on the cusps, up to 0.2 cm in greatest size. ??E [employer] Marketing Analyst sections are submitted for microscopy in cassette B1, following decalcification. Grossed by Teresa Qureshi M.S., GEORGE([facility]). 09/25/2023 10:47 AM LUNCH COUNTER MANAGER [facility] Block Summary A Heart, left atrial appendage A1 B Heart, aortic valve B1 09/25/2023 10:47 AM LUNCH COUNTER MANAGER [facility] Interpretation FINAL DIAGNOSIS A. ??Heart, left atrial appendage, excision: Mild myocyte hypertrophy and mild interstitial fibrosis, without mural thrombus. B. ??Heart, aortic valve, excision: ? 1. ??Degenerative fibrocalcific aortic valve disease, with moderate calcification ?(evaluated with Verhoeff-Van Gieson stain on block B1). ? 2. ??History of severe aortic stenosis and trivial aortic regurgitation. Diagnosis was made via digital imaging. 09/25/2023 10:47 AM LUNCH COUNTER MANAGER [facility] Tissue (Heart, Atrium) 09/19/2023 11:34 AM LUNCH COUNTER MANAGER Tissue (Heart Valve, Aortic) 09/19/2023 11:34 AM LUNCH COUNTER MANAGER Sarah Miller M.D., M.P.H. LAB SURG PATH ORDERABLES [address] [address] [address] [facility] 200 [place] [address] * (EDMUNDO) - INTRAOPERATIVE WITH COLOR AND LIMITED DOPPLER (PROBE NOT PLACED) (09/19/2023 9:56 AM LUNCH COUNTER MANAGER) Ejection Fraction [facility] Anatomical Region Laterality Modality Echocardiography 09/19/2023 6:43 AM LUNCH COUNTER MANAGER Impressions 09/19/2023 1:45 PM LUNCH COUNTER MANAGER PROCEDURE:Transesophageal echocardiogram performed at the request of the primary district extension service agent. Transesophageal echocardiogram completed without complications. PRE-BYPASS:Pre-bypass left ventricular ejection fraction 65%. Normal right ventricular systolic function. Severe ??aortic valve stenosis. Trileaflet aortic valve. Left ventricular outflow tract systolic diameter: 2.4 cm. Trivial aortic valve regurgitation. Normal ascending aorta diameter. Thickened mitral valve. Trivial mitral valve regurgitation. Normal tricuspid valve. Trivial tricuspid valve regurgitation. Normal pulmonary valve. Positive for atrial level shunt by agitated saline contrast injection. No atherosclerosis of the ascending aorta. Diffuse moderate immobile (atheroma 3-5 mm thickness without ulceration) atherosclerosis of the aortic arch. Diffuse moderate immobile (atheroma 3-5 mm thickness without ulceration) atherosclerosis of the descending thoracic aorta. POST-BYPASS:Status post 23 mm aortic valve mechanical prosthesis. Intraoperative result: residual mean aortic prosthetic valve gradient of 9 mm Hg. Intraoperative result: trivial (normal washing jets) residual aortic prosthetic valve regurgitation. Intraoperative result: no aortic periprosthetic regurgitation. Post-bypass left ventricular ejection fraction 70%. Post-bypass: normal right ventricular systolic function. Intact ascending aorta post-decannulation. The remaining findings are unchanged from pre-bypass images. For the complete report, see the Order-Level Documents. Narrative 09/19/2023 1:45 PM LUNCH COUNTER MANAGER For the complete report, see the Order-Level Documents. Hemodynamics Heart Rate: 78 BPM Blood Pressure: 131 / 71 mmHg Final Impressions 1. PRE-BYPASS: 2. Pre-bypass left ventricular ejection fraction 65%. 3. Normal right ventricular systolic function. 4. Severe ??aortic valve stenosis. 5. Trileaflet aortic valve. 6. Left ventricular outflow tract systolic diameter: 2.4 cm. 7. Trivial aortic valve regurgitation. 8. Normal ascending aorta diameter. 9. Positive for atrial level shunt by agitated saline contrast injection. ??tiny PFO. 10. No atherosclerosis of the ascending aorta. 11. Diffuse moderate immobile (atheroma 3-5 mm thickness without ulceration) atherosclerosis of the aortic arch. 12. Diffuse moderate immobile (atheroma 3-5 mm thickness without ulceration) atherosclerosis of the descending thoracic aorta. 13. SURGERY: 14. Intraoperative surgical procedure: 23 mm On-X mechanical bileaflet aortic valve prosthesis. 15. Intraoperative surgical procedure: coronary artery bypass graft(s). 16. Status post left atrial appendage surgical ligation and pulmonary vein isolation. 17. POST-BYPASS: 18. Intraoperative result: trivial (normal washing jets) residual aortic prosthetic valve regurgitation. 19. Intraoperative result: no aortic periprosthetic regurgitation. 20. Intraoperative result: residual mean aortic prosthetic valve gradient of 9 mm Hg. 21. Post-bypass left ventricular ejection fraction 70%. 22. Post-bypass: normal right ventricular systolic function. 23. Trivial mitral and tricuspid valve regurgitation, not significantly changed from pre-bypass. 24. Laminar pulmonary vein flow post-isolation. 25. Only the orifice region of the left atrial appendage is visualized post ligation. 26. Intact ascending aorta post-decannulation. Procedure Note Shahid Deras M.D. - 09/19/2023 For the complete report, see the Order-Level Documents. Hemodynamics Heart Rate: 78 BPM Blood Pressure: 131 / 71 mmHg Final Impressions 1. PRE-BYPASS: 2. Pre-bypass left ventricular ejection fraction 65%. 3. Normal right ventricular systolic function. 4. Severe aortic valve stenosis. 5. Trileaflet aortic valve. 6. Left ventricular outflow tract systolic diameter: 2.4 cm. 7. Trivial aortic valve regurgitation. 8. Normal ascending aorta diameter. 9. Positive for atrial level shunt by agitated saline contrast injection.tiny PFO. 10. No atherosclerosis of the ascending aorta. 11. Diffuse moderate immobile (atheroma 3-5 mm thickness withoutulceration) atherosclerosis of the aortic arch. 12. Diffuse moderate immobile (atheroma 3-5 mm thickness withoutulceration) atherosclerosis of the descending thoracic aorta. 13. SURGERY: 14. Intraoperative surgical procedure: 23 mm On-X mechanical bileafletaortic valve prosthesis. 15. Intraoperative surgical procedure: coronary artery bypass graft(s). 16. Status post left atrial appendage surgical ligation and pulmonary veinisolation. 17. POST-BYPASS: 18. Intraoperative result: trivial (normal washing jets) residual aorticprosthetic valve regurgitation. 19. Intraoperative result: no aortic periprosthetic regurgitation. 20. Intraoperative result: residual mean aortic prosthetic valve gradientof 9 mm Hg. 21. Post-bypass left ventricular ejection fraction 70%. 22. Post-bypass: normal right ventricular systolic function. 23. Trivial mitral and tricuspid valve regurgitation, not significantlychanged from pre-bypass. 24. Laminar pulmonary vein flow post-isolation. 25. Only the orifice region of the left atrial appendage is visualizedpost ligation. 26. Intact ascending aorta post-decannulation. Findings PROCEDURE:Transesophageal echocardiogram performed at the request of theprimary district extension service agent. Transesophageal echocardiogram completedwithout complications. PRE-BYPASS:Pre-bypass left ventricular ejection fraction 65%. Normal rightventricular systolic function. Severe aortic valve stenosis. Trileafletaortic valve. Left ventricular outflow tract systolic diameter: 2.4 cm.Trivial aortic valve regurgitation. Normal ascending aorta diameter.Thickened mitral valve. Trivial mitral valve regurgitation. Normaltricuspid valve. Trivial tricuspid valve regurgitation. Normal pulmonaryvalve. Positive for atrial level shunt by agitated saline contrastinjection. No atherosclerosis of the ascending aorta. Diffuse moderateimmobile (atheroma 3-5 mm thickness without ulceration) atherosclerosis ofthe aortic arch. Diffuse moderate immobile (atheroma 3-5 mm thicknesswithout ulceration) atherosclerosis of the descending thoracic aorta. POST-BYPASS:Status post 23 mm aortic valve mechanical prosthesis.Intraoperative result: residual mean aortic prosthetic valve gradient of 9mm Hg. Intraoperative result: trivial (normal washing jets) residualaortic prosthetic valve regurgitation. Intraoperative result: no aorticperiprosthetic regurgitation. Post-bypass left ventricular ejectionfraction 70%. Post-bypass: normal right ventricular systolic function.Intact ascending aorta post-decannulation. The remaining findings areunchanged from pre-bypass images. For the complete report, see the Order-Level Documents. Sarah Miller M.D., M.P.H. CV ECHO PROCE DURES * MD US GUIDE VASC ACCESS, MD INS/PLC FLOW DIR CATH, MC ANE INVASIVE CATH WITH ULTRASOUND, LDA ANE PACATH, LDA ANE INTRODUCER ONLY, MC ANE CENTRAL LINE GENERIC PERFORMABLE (09/19/2023 8:06 AM LUNCH COUNTER MANAGER) Narrative Deja Barney M.D. - 09/19/2023 8:06 AM LUNCH COUNTER MANAGER Radha Iqbal M.D. ? 09/19/2023 ??8:13 AM Invasive Catheter Date/Time: 09/19/2023 8:06 AM Performed by: Radha Iqbal M.D. Authorized by: Radha Iqbal M.D. ?? Location: OR PROCEDURE DETAILS: Line type: central venous ?? Laterality: right Location: jugular internal Location details: new site ?? Additional catheter (i.e. multiple lines in same vessel): no ?? Patient position: Trendelenburg ?? Age group: adult Line Type: temporary (non-tunneled, non-implanted) Introducer: yes ?? Introducer size: 9 Fr Introducer insertion depth: 10 cm Catheter placed via introducer: pulmonary artery catheter ?? Lumen(s): double lumen Catheter diameter: 8 Fr Catheter insertion depth (cm): other (48 cm) Site the catheter was advanced to (this is the intended location and does not need to be proven by radiologic exam): pulmonary artery ?? Technique: ultrasound guided with EDMUNDO confirmation of guidewire in right atrium prior to vessel dilation ?? Ultrasound guidance: image acquired and saved Ultrasound comment: ultrasound guidance used demonstrating vessel patency and cannulation of the vessel observed. ??Vessel transduced: no ?? Monitored (venous): yes Number of attempts: 1 UNIVERSAL PROTOCOL All relevant documentation and testing were reviewed and available. All required blood products, implants, devices and or special equipment were made available as applicable. Pre-procedure verification was conducted and the correct site was marked if required. A fire risk assessment was done as applicable. The procedural time-out to verify correct patient, correct side/site, and procedure was conducted prior to performing the procedure and confirmed in a procedural pause. PRE-PROCEDURE DETAILS: Appropriate hand hygiene, gown, cap, mask, protective eyewear, sterile gloves, skin preparation, sterile drape, and strict aseptic technique were utilized as applicable for the procedure.: yes ?? Skin preparation: chlorhexidine ?? SEDATION / ANESTHESIA Anesthesia method: anesthesia POST-PROCEDURE DETAILS: Procedure completed successfully: yes ?? Line secured: sutured Chlorhexidine disc around insertion site and under catheter with slight turn: yes ?? Complications: none ?? ATTESTATION STATEMENT A resident or fellow participated in the procedure, and the senior staff consultant was present for the entire procedure. Radha Iqbal M.D. PROCEDURE/MINOR SURG ICAL ORDERABLES * MD ECHO EDMUNDO 2D PLC ONLY (09/19/2023 7:55 AM LUNCH COUNTER MANAGER) Narrative Deja Barney M.D. - 09/19/2023 7:55 AM LUNCH COUNTER MANAGER Radha Iqbal M.D. ? 09/19/2023 ??8:01 AM EDMUNDO Date/Time: 09/19/2023 7:55 AM Performed by: Radha Iqbal M.D. Authorized by: Radha Iqbal M.D. ?? Location: OR PROCEDURE DETAILS: Indications: actual or anticipated hemodynamic instability, aorta repair/replacement and placement/positioning of line or device Transesophageal type: placement of EDMUNDO probe only Complications: no complications and adult probe inserted without difficulty ATTESTATION STATEMENT A resident or fellow participated in the procedure, and the senior staff consultant was present for the entire procedure. Radha Iqbal M.D. ANESTHESIA ORDERABLE S * Airway (09/19/2023 7:52 AM LUNCH COUNTER MANAGER) Narrative Radha Iqbal M.D. - 09/19/2023 7:52 AM LUNCH COUNTER MANAGER Radha Iqbal M.D. ? 09/19/2023 ??8:56 AM Airway Date/Time: 09/19/2023 7:52 AM Performed by: Radha Iqbal M.D. Authorized by: Radha Iqbal M.D. ?? Patient location during procedure: OR / Procedure Area PROCEDURE DETAILS: Mask difficulty assessment: oral/nasal airway needed Final airway type: direct laryngoscopy, intubation Laryngeal Manipulation: no ?? Final airway difficulty of direct laryngoscopy (DL): 0-easy Final best view of glottic structures - Cormack/Lehane Score: grade 1 ETT location: oral Blade type: Ospina 2 Tube size: 8 ETT distance at teeth/gum: 24 Oral tube type: standard ETT Cuffed: yes Leak Test Performed: no ?? Number of attempt to successful placement: 1 Airway confirmation: bilateral breath sounds, positive ETCO2 and bilateral chest rise Other previous techniques attempted: none PRE PROCEDURE DETAILS: Pre evaluation for airway management: procedure Urgency: elective Preop assessment of probable difficulty: no difficulty anticipated Preoxygenation: bag valve mask SEDATION / ANESTHESIA Anesthesia method: anesthesia POST PROCEDURE DETAILS: ? Procedure outcome: successful ?? Airway event: no complications Radha Iqbal M.D. ANESTHESIA ORDERABLE S * MD ARTL CATH/CNULA MONITOR PERC, LDA ANE ARTERIAL LINE INSERTION (09/19/2023 7:43 AM LUNCH COUNTER MANAGER) Narrative Deja Barney M.D. - 09/19/2023 7:43 AM LUNCH COUNTER MANAGER Radha Iqbal M.D. ? 09/19/2023 ??8:19 AM Invasive Catheter Date/Time: 09/19/2023 7:43 AM Performed by: Radha Iqbal M.D. Authorized by: Deja Barney M.D. ?? Location: OR PROCEDURE DETAILS: Line type: arterial ?? Laterality: left Location: radial Location details: new site ? Age group: adult Catheter diameter: 20 Ga Catheter length (cm): 10 Technique: ultrasound guided ?? Ultrasound guidance: image not saved Monitored: yes ?? Number of attempts: 1 UNIVERSAL PROTOCOL All relevant documentation and testing were reviewed and available. All required blood products, implants, devices and or special equipment were made available as applicable. Pre-procedure verification was conducted and the correct site was marked if required. A fire risk assessment was done as applicable. The procedural time-out to verify correct patient, correct side/site, and procedure was conducted prior to performing the procedure and confirmed in a procedural pause. PRE-PROCEDURE DETAILS: Appropriate hand hygiene, gown, cap, mask, protective eyewear, sterile gloves, skin preparation, sterile drape, and strict aseptic technique were utilized as applicable for the procedure.: yes ?? Skin preparation: chlorhexidine ?? SEDATION / ANESTHESIA Anesthesia method: local infiltration Local infiltrate type: lidocaine POST-PROCEDURE DETAILS: Procedure completed successfully: yes ?? Line secured: secured with sutureless device Chlorhexidine disc around insertion site and under catheter with slight turn: yes ?? Complications - arterial: none ATTESTATION STATEMENT A resident or fellow participated in the procedure, and the senior staff consultant was present for the entire procedure. Deja Barney M.D. PROCEDURE/MINOR SURG ICAL ORDERABLES * Non-Radiology Image-Anesthesiology Image Exam (09/19/2023 7:00 AM LUNCH COUNTER MANAGER) 09/19/2023 7:00 AM LUNCH COUNTER MANAGER Narrative [facility] - 09/19/2023 8:29 AM LUNCH COUNTER MANAGER This order has been created and auto-finalized to support the import of images acquired without order. The clinical documentation to support these images can be found on the encounter that produced images. Provider Not In System IMG NON RAD IMAGI NG PROCEDURES Performing Organization Address City/[facility]/ZIP Co de Phone Number IIMT NA * (ABNORMAL) Reticulocyte Profile (09/05/2023 3:22 PM CDT) Reticulocytes, B 1.38 0.60 - 2.71 % 09/05/2023 4:03 PM CDT DTL Absolute Reticulocyte 53.7 30.4 - 110.9 x10(9)/L 09/05/2023 4:03 PM CDT DTL Immature Reticulocyte Fraction 8.1 2.3 - 13.4 % 09/05/2023 4:03 PM CDT DTL Reticulocyte Hemoglobin 35.0 30.0 - 37.6 pg 09/05/2023 4:03 PM CDT DTL Erythrocytes 3.87(L) 4.35 - 5.65 x10(12)/L 09/05/2023 3:39 PM CDT DTL Blood 09/05/2023 3:22 PM CDT 09/05/2023 3:32 PM CDT Norman Roca APRN, C.N.P., D.N.P. L AB BLOOD ADD-ON [facility] [address] [place] [address], [facility] DTL [facility] [address] [place] [address] * (ABNORMAL) CBC-Preop with reflex anemia panel (09/05/2023 3:22 PM CDT) Hemoglobin 11.9(L) 13.2 - 16.6 g/dL 09/05/2023 3:39 PM CDT DTL Hematocrit 35.1(L) 38.3 - 48.6 % 09/05/2023 3:39 PM CDT DTL Erythrocytes 3.87(L) 4.35 - 5.65 x10(12)/L 09/05/2023 3:39 PM CDT DTL MCV 90.7 78.2 - 97.9 fL 09/05/2023 3:39 PM CDT DTL RBC Distrib Width 12.4 11.8 - 14.5 % 09/05/2023 3:39 PM CDT DTL Platelet Count 185 135 - 317 x10(9)/L 09/05/2023 3:39 PM CDT DTL Leukocytes 6.0 3.4 - 9.6 x10(9)/L 09/05/2023 3:39 PM CDT DTL Blood (Blood, Venous) 09/05/2023 3:22 PM CDT Narrative [facility] - 09/05/2023 3:39 PM CDT Specimen Information: Specimen ID: [id number] Specimen Type: Blood Specimen Collection Start Date: 09/05/2023 ??3:22 PM Specimen ID: [id number] Specimen Type: Blood Specimen Collection Start Date: 09/05/2023 ??3:22 PM Specimen Received Date: 09/05/2023 ??3:32 PM Specimen ID: [id number] Specimen Type: Blood Specimen Collection Start Date: 09/05/2023 ??3:22 PM Norman Roca APRN, C.N.P., D.N.P. L AB BLOOD ADD-ON [facility] [address] [place] [address], [facility] DTL [facility] [address] [place] [address] * (ABNORMAL) Methylmalonic Acid (MMA), Quantitative (09/05/2023 3:22 PM CDT) Methylmalonic Acid, QN, S 0.51(H) <=0.40 nmol/mL 09/07/2023 3:33 PM CDT DTL Comment: In this sample, the concentration of methylmalonic acid (MMA) was minimally elevated. As the upper limit of the reference range varies in different laboratories from 0.4 to 0.6 nmol/mL. This finding could be considered normal, especially if the patient does not show other signs of vitamin B12 deficiency. ----ADDITIONAL INFORMATION---- This test was developed and its performance characteristics determined by [facility] in a manner consistent with CLIA requirements. This test has not been cleared or approved by the U.S. Food and Drug Administration. Blood 09/05/2023 3:22 PM CDT 09/06/2023 7:43 AM CDT Norman Roca APRN, C.N.P., D.N.P. L AB BLOOD ADD-ON [facility] [address] [place] [address], [facility] DTL [address] [facility] 200 [place] [address] * (ABNORMAL) Iron and Total Iron-Binding Capacity (09/05/2023 3:22 PM CDT) Iron 64 50 - 150 mcg/dL 09/05/2023 4:04 PM CDT DTL Total Iron Binding Capacity 219(L) 250 - 400 mcg/dL 09/05/2023 4:04 PM CDT DTL Percent Saturation 29 14 - 50 % 09/05/2023 4:04 PM CDT DTL Blood 09/05/2023 3:22 PM CDT 09/05/2023 3:41 PM CDT Norman Roca APRN, Cata.N.P., D.N.P. L AB BLOOD ADD-ON [facility] [address] [place], [place] [id number] [place] [address] 200 [place] [address] * CRP (C-Reactive Protein) (09/05/2023 3:22 PM CDT) C-Reactive Protein (CRP), S <3.0 <5.0 mg/L 09/05/2023 4:04 PM CDT DTL Blood 09/05/2023 3:22 PM CDT 09/05/2023 3:41 PM CDT Cata Mendez APRN.N.P., D.N.P. L AB BLOOD ADD-ON [facility] [address] [place], [place] [id number] [place] [address] 200 [place] [address] * Folate (09/05/2023 3:22 PM CDT) Pathologist [facility] Folate, S 14.5 >=4.0 mcg/L 09/06/2023 7: 42 AM CDT DTL Blood 09/05/2023 3:22 PM CDT 09/05/2023 3:41 PM CDT Norman Roca APRN, C.N.P., D.N.P. L AB BLOOD ADD-ON [facility] [address] [place], [place] [phone] [place] [address] 200 [place] [address] * Ferritin (09/05/2023 3:22 PM CDT) Ferritin, S 256 31 - 409 mcg/L 09/05/2023 4:04 PM CDT DTL Blood 09/05/2023 3:22 PM CDT 09/05/2023 3:41 PM CDT Norman Roca APRN, C.N.P., Emilia.N.P. L AB BLOOD ADD-ON Performing Organization Address City/[facility] Co de Phone Number [facility] [address] [place] [address], [facility] [address] [place] [address] * (ABNORMAL) Vitamin B12 Assay (09/05/2023 3:22 PM CDT) [facility] Vitamin B12 Assay, S 123(L) 180 - 914 ng/L 09/06/2023 7:42 AM CDT DTL Comment: ----ADDITIONAL INFORMATION---- In patients being evaluated for vitamin B12 deficiency who have intrinsic factor blocking antibodies (IFBA), false elevations of B12 may occur due to IFBA interference thus potentially obscuring a physiological deficiency of B12. If observed B12 concentrations are discordant with clinical presentation, measurement of methylmalonic acid (MMA) should be considered. Blood 09/05/2023 3:22 PM CDT 09/05/2023 3:41 PM CDT Norman Roca APRN, C.N.P., Emilia.N.P. L AB BLOOD ADD-ON Performing Organization Address City/[facility] Co de Phone Number [facility] [address] [place] [address], [facility] [address] [place] [address] * CT Chest Angiogram with IV Contrast (09/05/2023 7:26 AM CDT) Anatomical Region Laterality Modality Chest, Cardiovascular RST LO S, Thoracic ARZ LOS, Thoracic FLA LOS, Vascular Interventional ARZ LOS, Procedural N/A Computed Tomography , Computed Tomography 09/05/2023 7:28 AM CDT Impressions 09/05/2023 10:11 AM CDT 1. ??Moderate calcified atherosclerotic plaque involving the arch and descending thoracic aorta. Minimal calcification is present in the ascending aorta. 2. ??No dissection, penetrating atheromatous ulcer, or stenosis. Thoracic aortic measurements included in the findings section. 3. ??Severe aortic valve calcification compatible with aortic stenosis. Narrative 09/05/2023 10:11 AM CDT EXAM: ??CT CHEST ANGIOGRAM WITH IV CONTRAST Including 3D image post-processing. COMPARISON: ??Chest x-ray from 08/19/2023 FINDINGS: VASCULAR FINDINGS: Thoracic aorta: No dissection or penetrating atheromatous ulcer. Moderate calcified atherosclerotic plaque in the arch and descending aorta. There is minimal calcification within the proximal to middle ascending thoracic aorta, along the right and posterior tate. THORACIC AORTIC DIAMETER MEASUREMENTS (Double Oblique): Annulus: 28 x 22 mm Sinuses of Valsalva (Sinus to Sinus) = 37 ??x 36 ??x 33 ??mm Sinotubular Junction = 32 x 31 mm Ascending Aorta (Maximum Diameter) = 37 x 37 mm Aortic Arch (Just Proximal to Left Subclavian Origin) = 27 x 28 mm Proximal Descending Aorta = 27 x 28 mm Mid Descending Aorta = 25 x 27 mm Supraceliac Aorta (Just Proximal to Celiac Origin) = 25 x 25 mm Conventional left arch with 3 arch vessels. The brachiocephalic, left common carotid, and left subclavian arteries are patent without stenosis. Mild calcified plaque involving the proximal arch vessels. Patent right subclavian artery. ADDITIONAL FINDINGS: Heart: Normal cardiac chamber size. Three right and two left pulmonary veins draining into the left atrium. Moderate coronary artery calcification. Severe aortic valve calcification compatible with aortic stenosis. Mild calcification at the aorto-mitral fibrous continuity. Trace pericardial effusion, likely physiologic. No pulmonary embolism. No thoracic adenopathy. Normal variant azygous fissure. No pleural effusion or pneumothorax. Hypertrophic degenerative changes of the spine. Bilateral gynecomastia. Procedure Note Norman Suarez M.D. - 09/05/2023 EXAM: CT CHEST ANGIOGRAM WITH IV CONTRAST Including 3D image post-processing. COMPARISON: Chest x-ray from 08/19/2023 FINDINGS: VASCULAR FINDINGS: Thoracic aorta: No dissection or penetrating atheromatous ulcer. Moderatecalcified atherosclerotic plaque in the arch and descending aorta. There is minimal calcificationwithin the proximal to middle ascending thoracic aorta, along the right and posterior tate. THORACIC AORTIC DIAMETER MEASUREMENTS (Double Oblique): Annulus: 28 x 22 mm Sinuses of Valsalva (Sinus to Sinus) = 37 x 36 x 33 mm Sinotubular Junction = 32 x 31 mm Ascending Aorta (Maximum Diameter) = 37 x 37 mm Aortic Arch (Just Proximal to Left Subclavian Origin) = 27 x 28 mm Proximal Descending Aorta = 27 x 28 mm Mid Descending Aorta = 25 x 27 mm Supraceliac Aorta (Just Proximal to Celiac Origin) = 25 x 25 mm Conventional left arch with 3 arch vessels. The brachiocephalic, leftcommon carotid, and left subclavian arteries are patent without stenosis. Mild calcified plaqueinvolving the proximal arch vessels. Patent right subclavian artery. ADDITIONAL FINDINGS: Heart: Normal cardiac chamber size. Three right and two left pulmonaryveins draining into the left atrium. Moderate coronary artery calcification. Severe aortic valvecalcification compatible with aortic stenosis. Mild calcification at the aorto-mitral fibrouscontinuity. Trace pericardial effusion, likely physiologic. No pulmonary embolism. No thoracic adenopathy. Normal variant azygous fissure. No pleural effusion or pneumothorax. Hypertrophic degenerative changes of the spine. Bilateral gynecomastia. IMPRESSION: 1. Moderate calcified atherosclerotic plaque involving the arch anddescending thoracic aorta. Minimal calcification is present in the ascending aorta. 2. No dissection, penetrating atheromatous ulcer, or stenosis. Thoracicaortic measurements included in the findings section. 3. Severe aortic valve calcification compatible with aortic stenosis. Billy Segal APRN C.N.P., D.N.P. IMG CT PROCEDURES from Last 3 Months Advance Directives For more information, please contact: [phone] Latest Code Status on File Code Status Date Activated Date Inactivated Comments Full Code 09/19/2023 5:07 PM 09/26/2023 6:40 PM Question Answer Comments Full Code: Discussed Code Status History Code Status Date Activated Date Inactivated Comments Full Code 09/19/2023 7:02 AM 09/19/2023 5:07 PM Question Answer Comments Full Code: Discussed Full Code 08/19/2023 9:58 PM 08/22/2023 2:12 PM Question Answer Comments Full Code: Discussed Care Teams Preform Plate Maker Relationship Specialty Start Date End Date Kylah Crum M.D. [address] [place] [phone] PCP - General Family Medicine 09/28/23
--- OUTSIDE RECORDS SUMMARY | 2023-12-04 12:10 | XMS_ITS | Encounter Summary ---
Author Name Unknown Organization [facility] Address [address] [place] [id number] Care Team Providers Care Snowblower Mechanic Name Role Phone Kylah Crum M.D. Primary Care Provider [phone] Reason for Referral * Outpatient (Routine) - Authorized Specialty Diagnoses / Procedures Referred By Contact Referred To Contact Cardiovascular Diseases / Cardiovascular Disease Diagnoses Stenosis Aortic Valve Acquired Mare Arauz M.D., Ph.D. [address] [place] [phone] [facility] Referral ID Status Reason Start Date Expiration Date V isits Requested Visits Authorized [id number] Authorized 11/27/2023 11/26/2024 1 1 NCIAL ENGINEER Encounter Details Date Type Department Care Team (Late st Contact Info) Description 11/27/2023 Orders Only Division of Nephrology and Hypertension in [place], [place] [address] [place] [phone] Mare Arauz M.D., Ph.D. [address] [place] [phone] Stenosis Aortic Valve Acquired (Primary Dx) Social History Tobacco Use Types Packs/Day Years Used Date Smoking Tobacco: Former Cigarettes Smokeless Tobacco: Never Comments:Smoked recreational ly over 40 years ago - a few [...] your living situation today? I have a [facility] place to live 08/29/2023 Sex and Gender Information Value Date Recorded Sex Assigned at Male 08/29/2023 11:06 AM CDT Gender Identity Male 08/29/2023 11:06 AM CDT Sexual Orientation Straight 08/29/2023 11 :06 AM CDT documented as of this encounter Plan of Treatment Upcoming Encounters Date Type Department Care Team (Latest Contact Info) Description 12/21/2023 10:15 AM FINANCIAL ENGINEER Clinical Communication Virtual Review in [place], [place] 200 [place] [address] 12/24/2023 2:00 PM FINANCIAL ENGINEER Comprehensive Visit Department of Cardiovascular Medicine in [place], [place] [address] [place] [phone] Gudelia Soto M.D. [address] [place] [phone] 01/01/2024 3:45 PM FINANCIAL ENGINEER Comprehensive Visit Division of Hematology in [place], [place] [address] [place] [phone] Billy Segal APRN, C.N.P., D.N.P. [address] [place] [phone] Scheduled Referrals Name Type Priority Associated Diagnoses Order Schedule Cardiovascular Disease - Valvular heart disease (VHD) consult (clinic) Outpatient Referral Routine Stenosis Aortic Valve Acquired Expected: 11/27/2023 (Approximate), Expires: 02/25/2025 documented as of this encounter Visit Diagnoses Diagnosis Stenosis Aortic Valve Acquired- Primary documented in this encounter Additional Health Concerns Assessment Noted Time PHQ-9 Depression Total Score: 1 09/10/20 2:06 PM CDT documented as of this encounter Care Teams Snowblower Mechanic Relationship Specialty Start Date End Date Kylah Crum M.D. [address] [place] [phone] PCP - General Family Medicine 09/28/23 documented as of this encounter
--- OUTSIDE RECORDS SUMMARY | 2023-12-04 12:10 | XMS_ITS | Encounter Summary ---
Author Name Unknown Organization [facility] Address [address] [place] [address] Care Team Providers Care Superintendent Nonselling Name Role Phone Kylah Crum M.D. Primary Care Provider [phone] Encounter Details Date Type Department Care Team (Latest Contact Info) Description 11/02/2023 12:33 PM SENIOR BIOSTATISTICIAN/GROUP LEADER - 11/02/2023 11:59 PM SENIOR BIOSTATISTICIAN/GROUP LEADER Hospital Encounter Department of Laboratory Medicine in [place], [place] [address] [place] [phone] Kylah Crum M.D. [address] [place] [phone] 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; Cardiac Surgery Status Post; Bypass Coronary Artery Graft Status Post; Prosthesis Aortic Valve; Diabetes Mellitus Type 2 (HCC) Discharge Disposition: Home or Self Care Social History Tobacco Use Types Packs/Day Years [...] your living situation today? I have a [facility] place to live 08/29/2023 Sex and Gender Information Value Date Recorded Sex Assigned at Male 08/29/2023 11:06 AM CDT Gender Identity Male 08/29/2023 11:06 AM CDT Sexual Orientation Straight 08/29/2023 11 :06 AM CDT documented as of this encounter Medications at Time of Discharge Medication Sig Dispensed Refills Start Date End Date acetaminophen (TYLENOL) 500 mg tablet Take 1,000 mg by mouth every 6 (six) hours as needed for pain. 0 aspirin 81 mg chewable tablet Chew 1 tablet (81 mg total) daily. 0 09/26/2023 09/25/2024 atorvastatin (LIPITOR) 80 mg tablet Take 1 tablet (80 mg total) by mouth at bedtime. 0 09/26/2023 09/25/2024 cholecalciferol 10 mcg (400 Unit) tablet Take 10 mcg by mouth daily. 0 cyanocobalamin 2,000 mcg tablet Take 2,000 mcg by mouth daily. 0 ferrous sulfate 325 mg (65 mg iron) DR tablet Take 65 mg of iron by mouth daily. 0 finasteride (PROSCAR) 5 mg tablet Take 1 tablet (5 mg total) by mouth daily. 0 09/26/2023 furosemide (LASIX) 40 mg tablet Take 1 tablet (40 mg total) by mouth daily for 10 days. 10 tablet 0 10/31/2023 glipiZIDE (GLUCOTROL XL) 2.5 mg 24 hr tablet Take 1 tablet (2.5 mg total) by mouth daily with breakfast. 30 tablet 0 09/26/2023 metoprolol tartrate (LOPRESSOR) 25 mg tablet Take 1 tablet (25 mg total) by mouth 2 (two) times a day. 60 tablet 0 09/26/2023 rOPINIRole (REQUIP) 0.5 mg tablet Take 1 tablet (0.5 mg total) by mouth 3 (three) times a day. 0 09/26/2023 tamsulosin (FLOMAX) 0.4 mg 24 hr capsule Take 1 capsule (0.4 mg total) by mouth at bedtime. 0 09/26/2023 warfarin (JANTOVEN) 1 mg tabletIndications:P rosthesis Aortic Valve Take per Anticoagulation Clinic 180 tablet 3 10/31/2023 documented as of this encounter Plan of Treatment Upcoming Encounters Date Type Department Care Team (Latest Contact Info) Description 12/21/2023 10:15 AM SENIOR BIOSTATISTICIAN/GROUP LEADER Clinical Communication Virtual Review in [place], [place] [address] [place] [address] 12/24/2023 2:00 PM SENIOR BIOSTATISTICIAN/GROUP LEADER Comprehensive Visit Department of Cardiovascular Medicine in [place], [place] [address] [place] [phone] Gudelia Soto M.D. [address] [place] [phone] 01/01/2024 3:45 PM SENIOR BIOSTATISTICIAN/GROUP LEADER Comprehensive Visit Division of Hematology in [address] [phone] Billy Segal APRN, C.N.P., D.N.P. [address] [place] [phone] documented as of this encounter Procedures Procedure Name Priority Date/Time Associated Diagnosis Comments INR REFLEX, POCT, B Routine 11/02/2023 1 2:42 PM SENIOR BIOSTATISTICIAN/GROUP LEADER 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 Cardiac Surgery Status Post Bypass Coronary Artery Graft Status Post Prosthesis Aortic Valve Diabetes Mellitus Type 2 (HCC) documented in this encounter Results * INR Reflex, POCT, Blood (11/02/2023 12:42 PM SENIOR BIOSTATISTICIAN/GROUP LEADER) INR Reflex, POCT, B 3.6 11/02/2023 12:41 PM SENIOR BIOSTATISTICIAN/GROUP LEADER [id number] Comment: ----ADDITIONAL INFORMATION---- Standard intensity warfarin therapeutic range: 2.0 to 3.0 ?? High intensity warfarin therapeutic range: 2.5 to 3.5 Blood (Blood, Capillary) 11/02/2023 12:42 PM SENIOR BIOSTATISTICIAN/GROUP LEADER 11/02/2023 12:41 PM SENIOR BIOSTATISTICIAN/GROUP LEADER Kylah Crum M.D. LAB POCT ORDERABLES - DEVICE [facility] [address] [place] [address], [facility] [id number] [facility] [place] [address] [place] [address] documented in this encounter Visit Diagnoses Diagnosis 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 Cardiac Surgery Status Post Bypass Coronary Artery Graft Status Post Prosthesis Aortic Valve Diabetes Mellitus Type 2 (HCC) documented in this encounter Additional Health Concerns Assessment Noted Time PHQ-9 Depression Total Score: 1 09/10/20 23 2:06 PM CDT documented as of this encounter Care Teams Superintendent Nonselling Relationship Specialty Start Date End Date Kylah Crum M.D. [address] [place] [phone] PCP - General Family Medicine 09/28/23 documented as of this encounter
--- OUTSIDE RECORDS SUMMARY | 2023-12-04 12:10 | XMS_ITS | Encounter Summary ---
Author Name Unknown Organization [facility] Address [address] [place] [address] Care Team Providers Care Managed Services Sales Consultant Name Role Phone Kylah Crum M.D. Primary Care Provider Reason for Visit * Appointment Request (Routine) - Closed Specialty Diagnoses / Procedures Referred By Sebas gimenez Referred To Contact Nephrology and Hypertension Referral ID Status Reason Start Date Expiration Date Visits Re quested Visits Authorized [id number] Closed 11/16/2023 11/15/2024 1 1 Encounter Details Date Type Department Care Team (Latest Contact Info) Description 11/27/2023 2:00 PM CASH APPLICATIONS REPRESENTATIVE External Outreach Division of Nephrology and Hypertension in [place], [place] [address] [place] [phone] Mare Arauz M.D., Ph.D. [address] [place] [phone] Congestive Heart Failure (HCC) (Primary Dx) Social History Tobacco Use Types [...] your living situation today? I have a [facility] place to live 08/29/2023 Sex and Gender Information Value Date Recorded Sex Assigned at Male 08/29/2023 11:06 AM CDT Gender Identity Male 08/29/2023 11:06 AM CDT Sexual Orientation Straight 08/29/2023 11 :06 AM CDT documented as of this encounter Progress Notes * Mare Arauz M.D., Ph.D. - 11/27/2023 2:00 PM CST PROGRESS NOTE SUBJECTIVE CHIEF COMPLAINT / REASON FOR VISIT Follow up after hospitalization, CKD 4 management HISTORY OF PRESENT ILLNESS Jong Harris is a 73 y.o. male who is seen for follow up. He was recently hospitalized at the [facility] for CHF exacerbation. He had presented quickly fluid accumulation despite oral diuretic optimization. He had severe aortic stenosis, status post CABG, MAZE procedure, left atrial appendage ligation, mechanical aortic valve replacement on September 19, 2023. He has not established care with cardiology yet. During his renal ultrasound in October 2023, he was found to be very tachypneic and was not able to be in recumbent position. He was instructed to go to the ED, and due to his symptoms he was admitted. Hospitalization length of 1 week for volume management, including IV diuresis and left thoracentesis. He was discharged on higher doses of furosemide and added spironolactone. He comes for follow up. He coughs constantly especially if lying down. He tries to lay down on his left side, it makes it feel better and breath better. He has monitoring his weight, and has lost about 5 lbs since his hospitalization. He is taking 30 mg of lasix twice per day, but second dose (around 3-4 PM) cause him to wake up several times at night. OBJECTIVE There were no vitals taken for this visit. PHYSICAL EXAMINATION Vitals reviewed. Constitutional Appearance: Normal appearance. HENT Head: Normocephalic and atraumatic. Cardiovascular Rate and Rhythm: Normal rate and regular rhythm. Pulmonary Effort: Pulmonary effort is normal. Breath sounds: Rales present. Musculoskeletal Right lower leg: Edema present. Left lower leg: Edema present. Skin General: Skin is warm and dry. Neurological General: No focal deficit present. Mental Status: He is alert. Mental status is at baseline. Psychiatric Mood and Affect: Mood normal. Thought Content: Thought content normal. DIAGNOSTICS I have reviewed available labs in detail with patient. 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 No new labs, they have been ordered and will have them done with next INR check in 2 days. Chronic anemia, slowly improving after hospitalization. We will check iron studies next visit. Volume management: Ordered a CXR for comparison after thoracentesis. It shows significant improvement on pulmonary edema and left pleural effusion. Although it is still present, and it is possible that if it continues to accumulate he may require a repeat thoracentesis in the future. Due to his mechanical valve, if he requires a procedure, this will need to be done inpatient because he would require bridging with heparin. For now, as his symptoms are stable, we will monitor. I changed lasix to torsemide 40 mg daily. Asked him to wear adrian wrappings during day to mobilize fluid. Continue low salt intake Daily weights and daily BP monitoring at home. Labs in 1 week after diuretic change. Placed referral to Cardiology, patient would like to see Dr. Gudelia Soto, as she has previously seen and treated his son. I appreciate her input. Return visit in 1 month. Kay Seymour M.D., Ph.D. Addendum: Labs show slight increase in creatinine from 2.5 to 2.6 (it was 2 previous to his hospitalization).I will cut down torsemide dose to 20 mg daily and reassess in next visit. Patient has been informed of this change and verbalizes understanding the plan. He will continue tomonitor his weight daily, and notify us if he notices a rapid increase in weight. APPLICATIONS REPRESENTATIVE documented in this encounter Plan of Treatment Upcoming Encounters Date Type Department Care Team (Latest Contact Info) Description 12/21/2023 10:15 AM CASH APPLICATIONS REPRESENTATIVE Clinical Communication Virtual Review in [place], [place] [address] [place] [address] 12/24/2023 2:00 PM CASH APPLICATIONS REPRESENTATIVE Comprehensive Visit Department of Cardiovascular Medicine in [address] [phone] Gudelia Soto M.D. [address] [place] [phone] 01/01/2024 3:45 PM CASH APPLICATIONS REPRESENTATIVE Comprehensive Visit Division of Hematology in [address] [phone] Billy Segal APRN, C.N.P., D.N.P. [address] [place] [phone] documented as of this encounter Visit Diagnoses Diagnosis Congestive Heart Failure (HCC)- Primary documented in this encounter Additional Health Concerns Assessment Noted Time PHQ-9 Depression Total Score: 1 09/10/20 23 2:06 PM CDT documented as of this encounter Care Teams Managed Services Sales Consultant Relationship Specialty Start Date End Date Kylah Crum M.D. [address] [place] [address] [place] [phone] PCP - General Family Medicine 09/28/23 documented as of this encounter
--- OUTSIDE RECORDS SUMMARY | 2023-12-04 12:10 | XMS_ITS | Referral Summary ---
Author Name Unknown Organization [facility] Address [address] [place] [id number] Care Team Providers Care Sanitizer Name Role Phone Kylah Crum M.D. Primary Care Provider [phone] Source Comments Patient records contain information from all sites at [facility]. For routine questions regarding patient records, call [phone] during business hours, M-F 8:00 AM - 5:00 PM Central Time. Record requests for emergency care only can be directed to [phone] at any time.[facility] Encounters Date Type Department Care Team Description 4 Orders Only Department of Cardiovascular Medicine in [place], [place] [address] [place] [phone] Gudelia Soto M.D. Stenosis Aortic Valve Acquired (Primary Dx) 4 Clinical Communication Department of Cardiovascular Medicine in [place], [place] [address] [place] [address] Bethany Downs R.N. Triage 4 Orders Only Division of Nephrology and Hypertension in [place], [place] [address] [place] [phone] Mare Arauz M.D., Ph.D. Stenosis Aortic Valve Acquired (Primary Dx) 4 Clinical Communication Division of Nephrology and Hypertension in [place], [place] [address] [place] [phone] Mare Arauz M.D., Ph.D. Med Question (Priority 2) 4 2:00 PM TRAVEL DIRECTOR External Outreach Division of Nephrology and Hypertension in [place], [place] [address] [place] [phone] Mare Arauz M.D., Ph.D. Congestive Heart Failure (HCC) (Primary Dx) 4 Clinical Communication Department of Anticoagulation in [place], [place] [address] [place] [phone] Edna Gamble R.N. Anticoagulation 4 Clinical Communication Department of Anticoagulation in [place], [place] [address] [place] [phone] Lexi Carson Anticoagulation (Unable to reach) 3 Clinical Communication Division of Nephrology and Hypertension in [place], [place] [address] [place] [phone] Mare Arauz M.D., Ph.D. 3 12:33 PM TRAVEL DIRECTOR - 3 11:59 PM TRAVEL DIRECTOR Hospital Encounter Department of Laboratory Medicine in [address] [phone] Kylah Crum M.D. 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; Cardiac Surgery Status Post; Bypass Coronary Artery Graft Status Post; Prosthesis Aortic Valve; Diabetes Mellitus Type 2 (HCC) Discharge Disposition: Home or Self Care 3 3:00 PM TRAVEL DIRECTOR Anticoagulation Visit Department of Anticoagulation in [place], [place] [address] [place] [phone] Kylah Crum M.D. Diabetes Mellitus Type 2 (HCC) (Primary Dx); 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; Cardiac Surgery Status Post; Bypass Coronary Artery Graft Status Post; Prosthesis Aortic Valve; Online Content Developer (Current) Anticoagulant Treatment; Monitoring For Therapeutic Drug Therapy 3 Clinical Communication Department of Cardiovascular Medicine in [address] [phone] Gudelia Soto M.D. 3 Clinical Communication Department of Cardiovascular Surgery in [address] [phone] Sarah Miller M.D., M.P.H. Med Question (Refills or stopping medications) 3 Clinical Communication Department of Anticoagulation in [place], [place] [address] [place] [address] Roberto Kwok M.P.H., R.N. 3 8:00 AM TRAVEL DIRECTOR External Outreach Division of Nephrology and Hypertension in [place], [place] [address] [place] [address] Mare Arauz M.D., Ph.D. Chronic Kidney Disease (CKD), Stage 3b Glomerular Filtration Rate (GFR) 30 To 44 (HCC) (Primary Dx); Hypertension Essential Primary 3 12:42 PM TRAVEL DIRECTOR - 3 11:59 PM TRAVEL DIRECTOR Hospital Encounter Department of Laboratory Medicine in [address] [phone] Kylah Crum M.D. 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; Cardiac Surgery Status Post; Bypass Coronary Artery Graft Status Post; Prosthesis Aortic Valve; Diabetes Mellitus Type 2 (HCC); Online Content Developer (Current) Anticoagulant Treatment; Monitoring For Therapeutic Drug Therapy Discharge Disposition: Home or Self Care 3 4:10 PM TRAVEL DIRECTOR Anticoagulation Visit Department of Anticoagulation in [place], [place] [address] [place] [address] Kylah Crum M.D. Diabetes Mellitus Type 2 (HCC) (Primary Dx); 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; Cardiac Surgery Status Post; Bypass Coronary Artery Graft Status Post; Prosthesis Aortic Valve; Online Content Developer (Current) Anticoagulant Treatment; Monitoring For Therapeutic Drug Therapy 3 10:50 AM TRAVEL DIRECTOR - 3 11:59 PM TRAVEL DIRECTOR Hospital Encounter Department of Laboratory Medicine in [address] [phone] Kylah Crum M.D. 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; Cardiac Surgery Status Post; Bypass Coronary Artery Graft Status Post; Prosthesis Aortic Valve; Shelter (Current) Anticoagulant Treatment; Monitoring For Therapeutic Drug Therapy Discharge Disposition: Home or Self Care 3 11:30 AM TRAVEL DIRECTOR Anticoagulation Visit Department of Anticoagulation in [place], [place] [address] [place] [address] Kylah Crum M.D. Diabetes Mellitus Type 2 (HCC) (Primary Dx); 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; Cardiac Surgery Status Post; Bypass Coronary Artery Graft Status Post; Prosthesis Aortic Valve; Online Content Developer (Current) Anticoagulant Treatment; Monitoring For Therapeutic Drug Therapy 3 2:00 PM TRAVEL DIRECTOR Anticoagulation Visit Department of Anticoagulation in [place], [place] [address] [place] [address] Kylah Crum M.D. Prosthesis Aortic Valve (Primary Dx); 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; Cardiac Surgery Status Post; Bypass Coronary Artery Graft Status Post; Shelter (Current) Anticoagulant Treatment; Monitoring For Therapeutic Drug Therapy; Diabetes Mellitus Type 2 (HCC) 3 11:20 AM TRAVEL DIRECTOR - 3 11:59 PM TRAVEL DIRECTOR Hospital Encounter Department of Laboratory Medicine in [address] [phone] Kylah Crum M.D. 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; Cardiac Surgery Status Post; Bypass Coronary Artery Graft Status Post; Prosthesis Aortic Valve; Online Content Developer (Current) Anticoagulant Treatment; Monitoring For Therapeutic Drug Therapy Discharge Disposition: Home or Self Care 3 11:00 AM TRAVEL DIRECTOR - 3 11:59 PM TRAVEL DIRECTOR Hospital Encounter Department of Laboratory Medicine in [address] [phone] Kylah Crum M.D. 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; Cardiac Surgery Status Post; Bypass Coronary Artery Graft Status Post; Prosthesis Aortic Valve; Shelter (Current) Anticoagulant Treatment; Monitoring For Therapeutic Drug Therapy Discharge Disposition: Home or Self Care 3 2:00 PM TRAVEL DIRECTOR Anticoagulation Visit Department of Anticoagulation in [place], [place] [address] [place] [address] Kylah Crum M.D. Prosthesis Aortic Valve (Primary Dx); 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; Cardiac Surgery Status Post; Bypass Coronary Artery Graft Status Post; Online Content Developer (Current) Anticoagulant Treatment; Monitoring For Therapeutic Drug Therapy 3 Orders Only [facility] Kylah Crum M.D. Screening Abdominal Aortic Aneurysm; Diabetes Mellitus Type 2 (HCC) 3 Episode Changes Department of Cardiovascular Medicine in [place], [place] [address] [place] [address] Cony Calzada CEP 3 10:50 AM TRAVEL DIRECTOR - 3 11:59 PM TRAVEL DIRECTOR Hospital Encounter Department of Laboratory Medicine in [place], [place] [address] [place] [address] Kylah Crum M.D. 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; Cardiac Surgery Status Post; Bypass Coronary Artery Graft Status Post; Prosthesis Aortic Valve; Online Content Developer (Current) Anticoagulant Treatment; Monitoring For Therapeutic Drug Therapy Discharge Disposition: Home or Self Care 3 11:30 AM TRAVEL DIRECTOR Anticoagulation Visit Department of Anticoagulation in [place], [place] [address] [place] [phone] Kylah Crum M.D. Shelter (Current) Anticoagulant Treatment (Primary Dx); 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; Cardiac Surgery Status Post; Bypass Coronary Artery Graft Status Post; Prosthesis Aortic Valve; Monitoring For Therapeutic Drug Therapy 3 12:36 PM TRAVEL DIRECTOR - 3 11:59 PM TRAVEL DIRECTOR Hospital Encounter Department of Laboratory Medicine in [address] [phone] Kylah Crum M.D. 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; Cardiac Surgery Status Post; Bypass Coronary Artery Graft Status Post; Prosthesis Aortic Valve; Shelter (Current) Anticoagulant Treatment; Monitoring For Therapeutic Drug Therapy Discharge Disposition: Home or Self Care 3 3:00 PM TRAVEL DIRECTOR Anticoagulation Visit Department of Anticoagulation in [place], [place] [address] [place] [phone] Kylah Crum M.D. Online Content Developer (Current) Anticoagulant Treatment (Primary Dx); 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; Cardiac Surgery Status Post; Bypass Coronary Artery Graft Status Post; Prosthesis Aortic Valve; Monitoring For Therapeutic Drug Therapy 3 1:00 PM TRAVEL DIRECTOR Virtual Visit Department of Cardiovascular Surgery in [address] [phone] Mariama Monk APRN, C.N.P. Cardiac Surgery Status Post (Primary Dx); 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; Prosthesis Aortic Valve; Online Content Developer (Current) Anticoagulant Treatment 3 11:00 AM TRAVEL DIRECTOR Anticoagulation Visit Department of Anticoagulation in [place], [place] [address] [place] [phone] Kylah Crum M.D. Shelter (Current) Anticoagulant Treatment (Primary Dx); 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; Cardiac Surgery Status Post; Bypass Coronary Artery Graft Status Post; Prosthesis Aortic Valve; Monitoring For Therapeutic Drug Therapy 3 10:20 AM TRAVEL DIRECTOR - 3 11:59 PM TRAVEL DIRECTOR Hospital Encounter Department of Laboratory Medicine in [address] [phone] Kylah Crum M.D. 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; Cardiac Surgery Status Post; Bypass Coronary Artery Graft Status Post; Prosthesis Aortic Valve; Online Content Developer (Current) Anticoagulant Treatment; Monitoring For Therapeutic Drug Therapy Discharge Disposition: Home or Self Care 3 1:30 PM TRAVEL DIRECTOR Telemedicine Department of Cardiovascular Surgery in [place] [address] [place] [phone] Laila Basurto P.A.-C. Mariama Monk APRN, C.N.PJarrett Cardiac Surgery Status Post (Primary Dx); Bypass Coronary Artery Graft Status Post; Prosthesis Aortic Valve; 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; Coronary Artery Disease Without Angina Pectoris 3 Clinical Communication Department of Family Medicine, [facility], in [address] [phone] Kylah Crum M.D. Results 3 4:45 PM TRAVEL DIRECTOR Internal E-Consult Division of Nephrology and Hypertension in [place], [place] [address] [place] [phone] Pavan May M.D. Elevated Creatinine (Primary Dx); Failure Renal Acute (Acute Kidney Injury) (HCC) 3 3:30 PM TRAVEL DIRECTOR Anticoagulation Visit Department of Anticoagulation in [place], [place] [address] [place] [phone] Kylah Crum M.D. Online Content Developer (Current) Anticoagulant Treatment (Primary Dx); 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; Cardiac Surgery Status Post; Bypass Coronary Artery Graft Status Post; Prosthesis Aortic Valve; Monitoring For Therapeutic Drug Therapy 3 11:51 AM TRAVEL DIRECTOR - 3 11:59 PM TRAVEL DIRECTOR Hospital Encounter Department of Laboratory Medicine in [address] [phone] Kylah Crum M.D. Chronic Kidney Disease Stage 4 Glomerular Filtration Rate 15-29 (HCC) Discharge Disposition: Home or Self Care 3 11:50 AM TRAVEL DIRECTOR Hospital Encounter Department of Laboratory Medicine in [address] [phone] Kylah Crum M.D. 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; Cardiac Surgery Status Post; Bypass Coronary Artery Graft Status Post; Prosthesis Aortic Valve Discharge Disposition: Home or Self Care 3 Clinical Communication Department of Anticoagulation in [place], [place] [address] [place] [phone] Ralf Peralta R.N. Anticoagulation (CCM enrollment) 3 Clinical Communication Department of Anticoagulation in [place], [place] [address] [place] [phone] Nidia Kuhn Anticoagulation (New enrollment) 3 11:00 AM TRAVEL DIRECTOR Office Visit Department of Family Medicine, [facility], in [address] [phone] Kylah Crum M.D. Chronic Kidney Disease Stage 4 Glomerular Filtration Rate 15-29 (HCC) (Primary Dx); Cardiac Surgery Status Post; 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; Prosthesis Aortic Valve; Bypass Coronary Artery Graft Status Post; Diabetes Mellitus Type 2 (HCC); Atrial Fibrillation Unspecified (HCC); Hypertension And Chronic Kidney Disease Stage 1 To 4; Hyperlipidemia; Anemia Iron Deficiency 3 Clinical Communication Department of Cardiovascular Surgery in [place], [place] [address] [place] [phone] Sammi Kothari APRN, C.N.P., D.N.P. 3 Clinical Communication [facility] [address] [place] [phone] Sarah Miller M.D., M.P.H. 3 Clinical Communication Department of Anticoagulation in [place], [place] [address] [place] [phone] Edna Quinones R.N. Anticoagulation 3 1:33 PM TRAVEL DIRECTOR - 3 11:59 PM TRAVEL DIRECTOR Hospital Encounter Department of Laboratory Medicine in [address] [phone] Sammi Kothari APRN, C.N.P., D.N.P. Prosthesis Aortic Valve Discharge Disposition: Home or Self Care 3 Clinical Communication [facility] [address] [place] [phone] Sarah Miller M.D., M.P.H. 3 Clinical Communication [facility] [address] [place] [phone] Sarah Miller M.D., M.P.H. 3 5:38 AM TRAVEL DIRECTOR - 3 4:29 PM TRAVEL DIRECTOR Hospital Encounter [facility], [facility], Fifth Floor [address] [place] [phone] Sarah Miller M.D., M.P.H. Acquired Aortic Valve [...] Home or Self Care 3 Clinical Communication [facility] [address] [place] [phone] Sarah Miller M.D., M.P.H. 3 Orders Only Preoperative Evaluation Center in [place], [place] [address] [place] [phone] Fanny Villalobos APRN, C.N.P., D.N.P. 3 7:00 AM TRAVEL DIRECTOR Ancillary Procedure Department of Anesthesiology 3 6:45 AM TRAVEL DIRECTOR Ancillary Procedure [facility] OR [address] [place] [phone] Sarah Miller M.D., M.P.H. 3 7:00 AM TRAVEL DIRECTOR - 3 3:27 PM TRAVEL DIRECTOR Surgery [facility] [address] [place] [phone] Sarah Miller M.D., M.P.H. REPLACEMENT AORTIC VALVE, POSSIBLE AORTIC ROOT ENLARGEMENT. (On-X Conform 23mm Valve) 3 7:30 AM TRAVEL DIRECTOR Anesthesia Event [facility] [address] [place] [phone] Rowena Antonio M.D. Peyton Corbin, R.R.T., L.R.T. 3 9:45 AM TRAVEL DIRECTOR Office Visit Department of Cardiovascular Surgery in [address] [phone] Elvi Oliva, TIBURCIOS, P.A.-C. 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 Dona Kong, R.N. Stenosis Aortic Valve Acquired; Acquired Aortic Valve Disorder 3 Clinical Communication Department of Dental Specialties in [place], [place] [address] [place] [phone] Duc Bowling D.D.SJarrett 3 12:40 PM CDT Virtual Visit Department of Pharmacy in [address] [phone] Norman Roca APRN C.N.P., D.N.P. Gena May, PharmJarrettD., R.Ph. Stenosis Aortic Valve Acquired; Acquired Aortic Valve Disorder 3 8:45 AM CDT Telemedicine Preoperative Evaluation Center in [place], [place] [address] [place] [phone] Norman Roca APRN, C.N.P., D.N.P. Fanny Villalobos APRN, Cata.N.PJarrett, D.N.P. 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 Stenosis Aortic Valve Acquired; Acquired Aortic Valve Disorder 3 3:00 PM CDT Office Visit Department of Cardiovascular Surgery in [place], [place] [address] [place] [phone] Norman Roca APRN, C.N.Fritz., D.N.P. Acquired Aortic Valve Disorder (Primary Dx); Stenosis Aortic Valve Acquired 3 2:30 PM CDT Comprehensive Visit Department of Cardiovascular Surgery in [address] [phone] Sarah Miller M.D., M.P.H. 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 Stenosis Aortic Valve Acquired Discharge Disposition: Home or Self Care from Last 3 Months Allergies No known active allergies Medications Medication [...] Active Problems Problem Noted Date Diagnosed Date Shelter (Current) Anticoagulant Treatment 09/13 Bypass Coronary Artery Graft Status Post 023 Cardiac Surgery Status Post 09/24/2023 Effusion Pleural 09/24/2023 Device Cardiac Status Post 09/23/2023 Overview: Previously placed loop recorder Therapy Shelter Antiplatelet 09/22/2023 Coronary Arterial Bypass Graft Status [...] Right 04/11/2019 09/18/20 23 Aphasia 04/11/2019 09/18/2023 Social History Tobacco Use Types Packs/Day Years [...] living situation today? I have a [facility] place to live 08/29/2023 Sex and Gender Information Value Date Recorded Sex Assigned at Male 08/29/2023 11:06 AM CDT Gender Identity Male 08/29/2023 11:06 AM CDT Sexual Orientation Straight 08/29/2023 11 :06 AM CDT Last Filed Vital Signs Vital Sign Reading Time Taken Comments Blood Pressure 108/65 10/01/2023 11:08 AM TRAVEL DIRECTOR aveage Pulse 76 10/01/2023 11:08 AM TRAVEL DIRECTOR Temperature 36.1 ??C (96.9 ??F) 10/01/2023 1 1:08 AM TRAVEL DIRECTOR Respiratory Rate 20 10/01/2023 11:0 8 AM TRAVEL DIRECTOR Oxygen Saturation 98% 10/01/2023 11: 08 AM TRAVEL DIRECTOR Inhaled Oxygen Concentration - - Weight 90.2 kg (198 lb 11.9 oz) 023 11:08 AM TRAVEL DIRECTOR Height 172.4 cm (5' 7.87) 10/01/2023 1 1:08 AM TRAVEL DIRECTOR Body Mass Index 30.33 10/01/2023 11:08 AM TRAVEL DIRECTOR Plan of Treatment Upcoming Encounters Date Type Department Care Team (Latest Contact Info) Description 12/21/2023 10:15 AM TRAVEL DIRECTOR Clinical Communication Virtual Review in [place], [place] 200 [place] [address] 12/24/2023 2:00 PM TRAVEL DIRECTOR Comprehensive Visit Department of Cardiovascular Medicine in [address] [phone] Gudelia Soto M.D. [address] [place] [phone] 01/01/2024 3:45 PM TRAVEL DIRECTOR Comprehensive Visit Division of Hematology in [address] [phone] Billy Segal APRN, C.N.P., D.N.P. [address] [place] [phone] Medical Devices Implanted Type Area Hot Plate Plywood Press Feeder Device Identifier Shelf Expiration Date Model / Serial / Lot Vlv Aort Cnf [facility] 23 - [id number] - [id number] Implanted:Qty : 1 on 09/19/2023 by Sarah Miller M.D., M.P.H. at [facility] Cardiac Valve Prosthesis N/A: Aortic Valve [employer]ion (Prev. [employer]) 2028 ONXACE- [id number] / [facility] Surg Tfln 1x6 - [id number] Implanted:Qty : 1 on 09/19/2023 by Sarah Miller M.D., M.P.H. at [facility] Hardware e.g. pins/screws/r ods N/A: Chest [employer] [id number] / / Procedures Procedure Name Priority Date/Time Associated Diagnosis Comments OUTSIDE DX CHEST Routine 11/11/2023 8:30 AM TRAVEL DIRECTOR OUTSIDE DX CHEST Routine 11/08/2023 3:25 PM TRAVEL DIRECTOR INR REFLEX, POCT, B Routine 11/02/2023 12:42 PM TRAVEL DIRECTOR 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 Cardiac Surgery Status Post Bypass Coronary Artery Graft Status Post Prosthesis Aortic Valve Diabetes Mellitus Type 2 (HCC) OUTSIDE DX CHEST Routine 10/31/2023 9:00 AM TRAVEL DIRECTOR INR REFLEX, POCT, B Routine 10/29/2023 12:50 PM TRAVEL DIRECTOR 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 Cardiac Surgery Status Post Bypass Coronary Artery Graft Status Post Prosthesis Aortic Valve Diabetes Mellitus Type 2 (HCC) Online Content Developer (Current) Anticoagulant Treatment Monitoring For Therapeutic Drug Therapy INR REFLEX, POCT, B Routine 10/26/2023 11:36 AM TRAVEL DIRECTOR 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 Cardiac Surgery Status Post Bypass Coronary Artery Graft Status Post Prosthesis Aortic Valve Shelter (Current) Anticoagulant Treatment Monitoring For Therapeutic Drug Therapy INR REFLEX, POCT, B Routine 10/22/2023 11:32 AM TRAVEL DIRECTOR 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 Cardiac Surgery Status Post Bypass Coronary Artery Graft Status Post Prosthesis Aortic Valve Online Content Developer (Current) Anticoagulant Treatment Monitoring For Therapeutic Drug Therapy INR REFLEX, POCT, B Routine 10/17/2023 11:22 AM TRAVEL DIRECTOR 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 Cardiac Surgery Status Post Bypass Coronary Artery Graft Status Post Prosthesis Aortic Valve Online Content Developer (Current) Anticoagulant Treatment Monitoring For Therapeutic Drug Therapy INR REFLEX, POCT, B Routine 10/12/2023 11:03 AM TRAVEL DIRECTOR 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 Cardiac Surgery Status Post Bypass Coronary Artery Graft Status Post Prosthesis Aortic Valve Shelter (Current) Anticoagulant Treatment Monitoring For Therapeutic Drug Therapy INR REFLEX, POCT, B Routine 10/08/2023 12:52 PM TRAVEL DIRECTOR 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 Cardiac Surgery Status Post Bypass Coronary Artery Graft Status Post Prosthesis Aortic Valve Online Content Developer (Current) Anticoagulant Treatment Monitoring For Therapeutic Drug Therapy INR REFLEX, POCT, B Routine 10/05/2023 10:35 AM TRAVEL DIRECTOR 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 Cardiac Surgery Status Post Bypass Coronary Artery Graft Status Post Prosthesis Aortic Valve Online Content Developer (Current) Anticoagulant Treatment Monitoring For Therapeutic Drug Therapy INR REFLEX, POCT, B Routine 10/01/2023 12:02 PM TRAVEL DIRECTOR 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 Cardiac Surgery Status Post Bypass Coronary Artery Graft Status Post Prosthesis Aortic Valve BASIC METABOLIC PANEL, S/P Routine 10/01/2023 12:02 PM TRAVEL DIRECTOR Chronic Kidney Disease Stage 4 Glomerular Filtration Rate 15-29 (HCC) PROTHROMBIN TIME (PT), P Routine 09/28/2023 1:41 PM TRAVEL DIRECTOR Prosthesis Aortic Valve GLUCOSE POCT, B Routine 09/26/2023 11:37 AM TRAVEL DIRECTOR GLUCOSE POCT, B Routine 09/26/2023 7:55 AM TRAVEL DIRECTOR BASIC METABOLIC PANEL, S/P Routine 09/26/2023 6:58 AM TRAVEL DIRECTOR PROTHROMBIN TIME (PT), P Routine 09/26/2023 6:58 AM TRAVEL DIRECTOR CBC WITHOUT DIFFERENTIAL, B Routine 09/26/2023 6:58 AM TRAVEL DIRECTOR GLUCOSE POCT, B Routine 09/25/2023 8:25 PM TRAVEL DIRECTOR GLUCOSE POCT, B Routine 09/25/2023 5:36 PM TRAVEL DIRECTOR GLUCOSE POCT, B Routine 09/25/2023 1:13 PM TRAVEL DIRECTOR BASIC METABOLIC PANEL, S/P Routine 09/25/2023 9:26 AM TRAVEL DIRECTOR PROTHROMBIN TIME (PT), P Routine 09/25/2023 9:26 AM TRAVEL DIRECTOR CBC WITHOUT DIFFERENTIAL, B Routine 09/25/2023 9:26 AM TRAVEL DIRECTOR GLUCOSE POCT, B Routine 09/25/2023 8:10 AM TRAVEL DIRECTOR DX CHEST AP OR PA AND LATERAL 2 VIEWS RAD - Routine (most inpatients and all outpatients) 09/25/2023 7:26 AM TRAVEL DIRECTOR ECG Routine 09/25/2023 4:55 AM TRAVEL DIRECTOR GLUCOSE POCT, B Routine 09/24/2023 8:33 PM TRAVEL DIRECTOR GLUCOSE POCT, B Routine 09/24/2023 4:44 PM TRAVEL DIRECTOR NOCTURNAL OXYGEN STUDY - RT Routine 09/24/2023 3:46 PM TRAVEL DIRECTOR (TTE) 2D ECHO DOPPLER COLOR Routine 09/24/2023 3:26 PM TRAVEL DIRECTOR GLUCOSE POCT, B Routine 09/24/2023 12:43 PM TRAVEL DIRECTOR RT TO ARRANGE FOR HOME DME Routine 09/24/2023 11:14 AM TRAVEL DIRECTOR GLUCOSE POCT, B Routine 09/24/2023 7:19 AM TRAVEL DIRECTOR BASIC METABOLIC PANEL, S/P Routine 09/24/2023 6:49 AM TRAVEL DIRECTOR PROTHROMBIN TIME (PT), P Routine 09/24/2023 6:49 AM TRAVEL DIRECTOR CBC WITHOUT DIFFERENTIAL, B Routine 09/24/2023 6:49 AM TRAVEL DIRECTOR GLUCOSE POCT, B Routine 09/23/2023 9:38 PM TRAVEL DIRECTOR GLUCOSE POCT, B Routine 09/23/2023 5:02 PM TRAVEL DIRECTOR BASIC METABOLIC PANEL, S/P STAT 09/23/2023 3:44 PM TRAVEL DIRECTOR HEMOGLOBIN, B STAT 09/23/2023 3:44 PM TRAVEL DIRECTOR PROTHROMBIN TIME (PT), P STAT 09/23/2023 3:44 PM TRAVEL DIRECTOR GLUCOSE POCT, B Routine 09/23/2023 12:19 PM TRAVEL DIRECTOR DX CHEST AP OR PA AND LATERAL 2 VIEWS RAD - Routine (most inpatients and all outpatients) 09/23/2023 8:44 AM TRAVEL DIRECTOR BASIC METABOLIC PANEL, S/P Routine 09/23/2023 7:34 AM TRAVEL DIRECTOR PROTHROMBIN TIME (PT), P Routine 09/23/2023 7:34 AM TRAVEL DIRECTOR CBC WITHOUT DIFFERENTIAL, B Routine 09/23/2023 7:34 AM TRAVEL DIRECTOR HEPATIC FUNCTION PANEL, S Routine 09/23/2023 7:31 AM TRAVEL DIRECTOR GLUCOSE POCT, B Routine 09/23/2023 7:24 AM TRAVEL DIRECTOR BASIC METABOLIC PANEL, S/P STAT 09/22/2023 11:14 PM TRAVEL DIRECTOR CBC WITHOUT DIFFERENTIAL, B STAT 09/22/2023 11:14 PM TRAVEL DIRECTOR GLUCOSE POCT, B Routine 09/22/2023 9:29 PM TRAVEL DIRECTOR RESPIRATORY ASSESS AND TREAT Routine 09/22/2023 2:00 PM TRAVEL DIRECTOR TRANSFUSE RED BLOOD CELLS Routine 09/22/2023 2:00 PM TRAVEL DIRECTOR GLUCOSE POCT, B Routine 09/22/2023 11:27 AM TRAVEL DIRECTOR GLUCOSE POCT, B Routine 09/22/2023 7:34 AM TRAVEL DIRECTOR BASIC METABOLIC PANEL, S/P Routine 09/22/2023 7:04 AM TRAVEL DIRECTOR PROTHROMBIN TIME (PT), P Routine 09/22/2023 7:04 AM TRAVEL DIRECTOR CBC WITHOUT DIFFERENTIAL, B Routine 09/22/2023 7:04 AM TRAVEL DIRECTOR TYPE AND SCREEN Routine 09/22/2023 7:01 AM TRAVEL DIRECTOR GLUCOSE POCT, B Routine 09/21/2023 10:52 PM TRAVEL DIRECTOR GLUCOSE POCT, B Routine 09/21/2023 7:07 PM TRAVEL DIRECTOR RESPIRATORY ASSESS AND TREAT Routine 09/21/2023 2:00 PM TRAVEL DIRECTOR GLUCOSE POCT, B Routine 09/21/2023 11:27 AM TRAVEL DIRECTOR GLUCOSE POCT, B Routine 09/21/2023 8:50 AM TRAVEL DIRECTOR PROTHROMBIN TIME (PT), P STAT 09/21/2023 7:47 AM TRAVEL DIRECTOR PATIENT STATUS Timed 09/21/2023 6:35 AM TRAVEL DIRECTOR ABG W/COOX Timed 09/21/2023 6:35 AM TRAVEL DIRECTOR GLUCOSE POCT, B Routine 09/21/2023 6:31 AM TRAVEL DIRECTOR BASIC METABOLIC PANEL, S/P Timed 09/21/2023 5:11 AM TRAVEL DIRECTOR PHOSPHORUS (INORGANIC), S Timed 09/21/2023 5:11 AM TRAVEL DIRECTOR MAGNESIUM, S Timed 09/21/2023 5:11 AM TRAVEL DIRECTOR CBC WITHOUT DIFFERENTIAL, B Timed 09/21/2023 5:11 AM TRAVEL DIRECTOR BASIC METABOLIC PANEL, S/P Timed 09/21/2023 12:21 AM TRAVEL DIRECTOR GLUCOSE POCT, B Routine 09/20/2023 8:33 PM TRAVEL DIRECTOR POTASSIUM, S/P Timed 09/20/2023 8:33 PM TRAVEL DIRECTOR GLUCOSE POCT, B Routine 09/20/2023 4:31 PM TRAVEL DIRECTOR BASIC METABOLIC PANEL, S/P STAT 09/20/2023 4:27 PM TRAVEL DIRECTOR RESPIRATORY ASSESS AND TREAT Routine 09/20/2023 2:00 PM TRAVEL DIRECTOR GLUCOSE POCT, B Routine 09/20/2023 11:51 AM TRAVEL DIRECTOR BASIC METABOLIC PANEL, S/P STAT 09/20/2023 11:51 AM TRAVEL DIRECTOR GLUCOSE POCT, B Routine 09/20/2023 6:30 AM TRAVEL DIRECTOR PREPARE PLATELETS STAT 09/20/2023 6:3 0 AM TRAVEL DIRECTOR PREPARE CRYOPRECIPITATE STAT 09/20/2023 4:30 AM TRAVEL DIRECTOR LACTATE, B Timed 09/20/2023 4:11 AM TRAVEL DIRECTOR PATIENT STATUS Timed 09/20/2023 4:11 AM TRAVEL DIRECTOR ABG W/O COOX Timed 09/20/2023 4:11 AM TRAVEL DIRECTOR ACTIVATED PARTIAL THROMBOPLASTIN TIME (APTT), P Timed 09/20/2023 4:09 AM TRAVEL DIRECTOR PROTHROMBIN TIME (PT), P Timed 09/20/2023 4:09 AM TRAVEL DIRECTOR CBC WITHOUT DIFFERENTIAL, B Timed 09/20/2023 4:09 AM TRAVEL DIRECTOR MAGNESIUM, S Timed 09/20/2023 4:09 AM TRAVEL DIRECTOR BASIC METABOLIC PANEL, S/P Timed 09/20/2023 4:09 AM TRAVEL DIRECTOR DX CHEST PORTABLE WITH AM ROUNDS 1 VIEW RAD - Routine (most inpatients and all outpatients) 09/20/2023 3:33 AM TRAVEL DIRECTOR TIMP2/IGFBP7 MANJEET RISK SCORE, U Routine 09/20/2023 3:24 AM TRAVEL DIRECTOR PREPARE PLATELETS STAT 09/20/2023 2:3 0 AM TRAVEL DIRECTOR PREPARE FRESH FROZEN PLASMA STAT 09/20/2023 2:30 AM TRAVEL DIRECTOR PREPARE PLATELETS STAT 09/20/2023 2:3 0 AM TRAVEL DIRECTOR GLUCOSE POCT, B Routine 09/20/2023 1:17 AM TRAVEL DIRECTOR GLUCOSE POCT, B Routine 09/19/2023 11:58 PM TRAVEL DIRECTOR GLUCOSE POCT, B Routine 09/19/2023 11:20 PM TRAVEL DIRECTOR LACTATE, B Timed 09/19/2023 10:58 PM TRAVEL DIRECTOR RESPIRATORY ASSESS AND TREAT Routine 09/19/2023 10:30 PM TRAVEL DIRECTOR GLUCOSE POCT, B Routine 09/19/2023 10:27 PM TRAVEL DIRECTOR GLUCOSE POCT, B Routine 09/19/2023 9:24 PM TRAVEL DIRECTOR ECG Routine 09/19/2023 8:14 PM TRAVEL DIRECTOR GLUCOSE POCT, B Routine 09/19/2023 7:58 PM TRAVEL DIRECTOR LACTATE, B Timed 09/19/2023 7:43 PM TRAVEL DIRECTOR PATIENT STATUS Timed 09/19/2023 7:43 PM TRAVEL DIRECTOR LACTATE, B/P Timed 09/19/2023 7:43 PM TRAVEL DIRECTOR ABG W/COOX Timed 09/19/2023 7:43 PM TRAVEL DIRECTOR GLUCOSE POCT, B Routine 09/19/2023 6:57 PM TRAVEL DIRECTOR GLUCOSE POCT, B Routine 09/19/2023 6:23 PM TRAVEL DIRECTOR DX CHEST PORTABLE 1 VIEW 09/19/2023 5:45 PM TRAVEL DIRECTOR PATIENT STATUS STAT 09/19/2023 5:19 PM TRAVEL DIRECTOR FIBRINOGEN, P STAT 09/19/2023 5:19 PM TRAVEL DIRECTOR PROTHROMBIN TIME (PT), P STAT 09/19/2023 5:19 PM TRAVEL DIRECTOR ACTIVATED PARTIAL THROMBOPLASTIN TIME (APTT), P STAT 09/19/2023 5:19 PM TRAVEL DIRECTOR CBC WITHOUT DIFFERENTIAL, B STAT 09/19/2023 5:19 PM TRAVEL DIRECTOR LACTATE, B STAT 09/19/2023 5:19 PM TRAVEL DIRECTOR ABG W/COOX STAT 09/19/2023 5:19 PM TRAVEL DIRECTOR BASIC METABOLIC PANEL, S/P STAT 09/19/2023 5:19 PM TRAVEL DIRECTOR CYSTATIN C WITH EGFR Timed 09/19/2023 5:19 PM TRAVEL DIRECTOR Acquired Aortic Valve Disorder AIRWAY CARE Routine 09/19/2023 5:16 PM TRAVEL DIRECTOR MECHANICAL VENTILATOR Routine 09/19/2023 5:16 PM TRAVEL DIRECTOR RESPIRATORY ASSESS AND TREAT Routine 09/19/2023 5:07 PM TRAVEL DIRECTOR TRANSFUSE PLATELETS Routine 09/19/2023 4 :58 PM TRAVEL DIRECTOR PLATELETS, B STAT 09/19/2023 4:20 PM TRAVEL DIRECTOR PROTHROMBIN TIME (PT), P STAT 09/19/2023 4:20 PM TRAVEL DIRECTOR FIBRINOGEN, P STAT 09/19/2023 4:20 PM TRAVEL DIRECTOR ACTIVATED PARTIAL THROMBOPLASTIN TIME (APTT), P STAT 09/19/2023 4:20 PM TRAVEL DIRECTOR LACTATE, B STAT 09/19/2023 4:20 PM TRAVEL DIRECTOR GLUCOSE, WHOLE BLOOD STAT 09/19/2023 4:20 PM TRAVEL DIRECTOR POTASSIUM, B STAT 09/19/2023 4:20 PM TRAVEL DIRECTOR SODIUM, B STAT 09/19/2023 4:20 PM TRAVEL DIRECTOR CALCIUM, IONIZED, S/B STAT 09/19/2023 4:20 PM TRAVEL DIRECTOR ABG W/COOX STAT 09/19/2023 4:20 PM TRAVEL DIRECTOR TRANSFUSE CRYOPRECIPITATE Routine 09/19/2023 3:53 PM TRAVEL DIRECTOR TRANSFUSE CRYOPRECIPITATE Routine 09/19/2023 3:51 PM TRAVEL DIRECTOR TRANSFUSE RED BLOOD CELLS Routine 09/19/2023 3:50 PM TRAVEL DIRECTOR THROMBOELASTOGRAPH, KAOLIN, B STAT 09/19/2023 3:37 PM TRAVEL DIRECTOR THROMBOELASTOGRAPH, KAOLIN + HEPARINASE, B STAT 09/19/2023 3:37 PM TRAVEL DIRECTOR PLATELETS, B STAT 09/19/2023 3:37 PM TRAVEL DIRECTOR PROTHROMBIN TIME (PT), P STAT 09/19/2023 3:37 PM TRAVEL DIRECTOR FIBRINOGEN, P STAT 09/19/2023 3:37 PM TRAVEL DIRECTOR ACTIVATED PARTIAL THROMBOPLASTIN TIME (APTT), P STAT 09/19/2023 3:37 PM TRAVEL DIRECTOR LACTATE, B STAT 09/19/2023 3:37 PM TRAVEL DIRECTOR GLUCOSE, WHOLE BLOOD STAT 09/19/2023 3:37 PM TRAVEL DIRECTOR POTASSIUM, B STAT 09/19/2023 3:37 PM TRAVEL DIRECTOR SODIUM, B STAT 09/19/2023 3:37 PM TRAVEL DIRECTOR CALCIUM, IONIZED, S/B STAT 09/19/2023 3:37 PM TRAVEL DIRECTOR ABG W/COOX STAT 09/19/2023 3:37 PM TRAVEL DIRECTOR TRANSFUSE RED BLOOD CELLS Routine 09/19/2023 3:23 PM TRAVEL DIRECTOR PLATELETS, B STAT 09/19/2023 2:46 PM TRAVEL DIRECTOR PROTHROMBIN TIME (PT), P STAT 09/19/2023 2:46 PM TRAVEL DIRECTOR FIBRINOGEN, P STAT 09/19/2023 2:46 PM TRAVEL DIRECTOR ACTIVATED PARTIAL THROMBOPLASTIN TIME (APTT), P STAT 09/19/2023 2:46 PM TRAVEL DIRECTOR GLUCOSE, WHOLE BLOOD STAT 09/19/2023 2:46 PM TRAVEL DIRECTOR POTASSIUM, B STAT 09/19/2023 2:46 PM TRAVEL DIRECTOR SODIUM, B STAT 09/19/2023 2:46 PM TRAVEL DIRECTOR CALCIUM, IONIZED, S/B STAT 09/19/2023 2:46 PM TRAVEL DIRECTOR ABG W/COOX STAT 09/19/2023 2:46 PM TRAVEL DIRECTOR DX CHEST RETAINED SURGICAL ITEM 1 VIEW RAD - Emergent (Fastest; for the most critically ill patients) 09/19/2023 2:30 PM TRAVEL DIRECTOR TRANSFUSE PLATELETS Routine 09/19/2023 2 :15 PM TRAVEL DIRECTOR TRANSFUSE RED BLOOD CELLS Routine 09/19/2023 2:00 PM TRAVEL DIRECTOR PLATELETS, B STAT 09/19/2023 1:40 PM TRAVEL DIRECTOR PROTHROMBIN TIME (PT), P STAT 09/19/2023 1:40 PM TRAVEL DIRECTOR FIBRINOGEN, P STAT 09/19/2023 1:40 PM TRAVEL DIRECTOR ACTIVATED PARTIAL THROMBOPLASTIN TIME (APTT), P STAT 09/19/2023 1:40 PM TRAVEL DIRECTOR GLUCOSE, WHOLE BLOOD STAT 09/19/2023 1:40 PM TRAVEL DIRECTOR POTASSIUM, B STAT 09/19/2023 1:40 PM TRAVEL DIRECTOR SODIUM, B STAT 09/19/2023 1:40 PM TRAVEL DIRECTOR CALCIUM, IONIZED, S/B STAT 09/19/2023 1:40 PM TRAVEL DIRECTOR ABG W/COOX STAT 09/19/2023 1:40 PM TRAVEL DIRECTOR AUTOLOGOUS RED BLOOD CELLS-CELL SALVAGE Routine 09/19/2023 1:28 PM TRAVEL DIRECTOR TRANSFUSE FRESH FROZEN PLASMA Routine 09/19/2023 1:24 PM TRAVEL DIRECTOR TRANSFUSE PLATELETS Routine 09/19/2023 1 :09 PM TRAVEL DIRECTOR LACTATE, B STAT 09/19/2023 12:45 PM TRAVEL DIRECTOR GLUCOSE, WHOLE BLOOD STAT 09/19/2023 12:45 PM TRAVEL DIRECTOR POTASSIUM, B STAT 09/19/2023 12:45 PM TRAVEL DIRECTOR SODIUM, B STAT 09/19/2023 12:45 PM TRAVEL DIRECTOR CALCIUM, IONIZED, S/B STAT 09/19/2023 12:45 PM TRAVEL DIRECTOR ABG W/COOX STAT 09/19/2023 12:45 PM TRAVEL DIRECTOR PLATELETS, B STAT 09/19/2023 12:44 PM TRAVEL DIRECTOR PROTHROMBIN TIME (PT), P STAT 09/19/2023 12:44 PM TRAVEL DIRECTOR FIBRINOGEN, P STAT 09/19/2023 12:44 PM TRAVEL DIRECTOR ACTIVATED PARTIAL THROMBOPLASTIN TIME (APTT), P STAT 09/19/2023 12:44 PM TRAVEL DIRECTOR ACT, POCT, B Routine 09/19/2023 12:42 PM TRAVEL DIRECTOR HEMOGLOBIN (HGB), POCT, B Routine 09/19/2023 12:17 PM TRAVEL DIRECTOR ACT, POCT, B Routine 09/19/2023 12:01 PM TRAVEL DIRECTOR GLUCOSE POCT, B Routine 09/19/2023 12:00 PM TRAVEL DIRECTOR SURGICAL PATHOLOGY, [facility] LAB Routine 09/19/2023 11:34 AM TRAVEL DIRECTOR Stenosis Aortic Valve Acquired AUTOLOGOUS RED BLOOD CELLS-CELL SALVAGE Routine 09/19/2023 11:33 AM TRAVEL DIRECTOR ACT, POCT, B Routine 09/19/2023 11:28 AM TRAVEL DIRECTOR ACT, POCT, B Routine 09/19/2023 10:55 AM TRAVEL DIRECTOR ACT, POCT, B Routine 09/19/2023 10:24 AM TRAVEL DIRECTOR GLUCOSE POCT, B Routine 09/19/2023 10:23 AM TRAVEL DIRECTOR TRANSFUSE RED BLOOD CELLS Routine 09/19/2023 10:13 AM TRAVEL DIRECTOR (EDMUNDO) - INTRAOPERATIVE WITH COLOR AND LIMITED DOPPLER (PROBE NOT PLACED) Routine 09/19/2023 9:56 AM TRAVEL DIRECTOR ACT, POCT, B Routine 09/19/2023 9:51 AM TRAVEL DIRECTOR GLUCOSE, WHOLE BLOOD STAT 09/19/2023 9:51 AM TRAVEL DIRECTOR POTASSIUM, B STAT 09/19/2023 9:51 AM TRAVEL DIRECTOR SODIUM, B STAT 09/19/2023 9:51 AM TRAVEL DIRECTOR CALCIUM, IONIZED, S/B STAT 09/19/2023 9:51 AM TRAVEL DIRECTOR ABG W/COOX STAT 09/19/2023 9:51 AM TRAVEL DIRECTOR ACT, POCT, B Routine 09/19/2023 9:26 AM TRAVEL DIRECTOR HEMOGLOBIN (HGB), POCT, B Routine 09/19/2023 9:24 AM TRAVEL DIRECTOR LACTATE, B STAT 09/19/2023 8:25 AM TRAVEL DIRECTOR GLUCOSE, WHOLE BLOOD STAT 09/19/2023 8:25 AM TRAVEL DIRECTOR POTASSIUM, B STAT 09/19/2023 8:25 AM TRAVEL DIRECTOR SODIUM, B STAT 09/19/2023 8:25 AM TRAVEL DIRECTOR CALCIUM, IONIZED, S/B STAT 09/19/2023 8:25 AM TRAVEL DIRECTOR ABG W/COOX STAT 09/19/2023 8:25 AM TRAVEL DIRECTOR ACT, POCT, B Routine 09/19/2023 8:24 AM TRAVEL DIRECTOR MC ANE CENTRAL LINE GENERIC PERFORMABLE Routine 09/19/2023 8:06 AM TRAVEL DIRECTOR LDA ANE INTRODUCER ONLY Routine 09/19/2023 8:06 AM TRAVEL DIRECTOR LDA ANE PA CATH Routine 09/19/2023 8:06 AM TRAVEL DIRECTOR MC ANE INVASIVE CATH WITH ULTRASOUND Routine 09/19/2023 8:06 AM TRAVEL DIRECTOR CA INS/PLC FLOW DIR CATH Routine 09/19/2023 8:06 AM TRAVEL DIRECTOR CA US GUIDE VASC ACCESS Routine 09/19/2023 8:06 AM TRAVEL DIRECTOR CA ECHO EDMUNDO 2D PLC ONLY Routine 09/19/2023 7:55 AM TRAVEL DIRECTOR AIRWAY MANAGEMENT Routine 09/19/2023 7:5 2 AM TRAVEL DIRECTOR LDA ANE ARTERIAL LINE INSERTION Routine 09/19/2023 7:43 AM TRAVEL DIRECTOR CA ARTL CATH/CNULA MONITOR PERC Routine 09/19/2023 7:43 AM TRAVEL DIRECTOR ECHOCARDIOGRAM TRANSESOPHAGEAL 09/19/2023 7:03 AM TRAVEL DIRECTOR Stenosis Aortic Valve Acquired ISOLATION PULMONARY VEIN 09/19/2023 7:03 AM TRAVEL DIRECTOR Stenosis Aortic Valve Acquired LIGATION LEFT ATRIAL APPENDAGE 09/19/2023 7:03 AM TRAVEL DIRECTOR 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 09/19/2023 7:03 AM TRAVEL DIRECTOR Stenosis Aortic Valve Acquired REPLACEMENT AORTIC VALVE 09/19/2023 7:03 AM TRAVEL DIRECTOR Stenosis Aortic Valve Acquired ANESTHESIOLOGY IMAGE EXAM Routine 09/19/2023 7:00 AM TRAVEL DIRECTOR PREPARE RED BLOOD CELLS STAT 09/18/2023 9:04 AM TRAVEL DIRECTOR PREPARE RED BLOOD CELLS STAT 09/18/2023 9:04 AM TRAVEL DIRECTOR PREPARE RED BLOOD CELLS STAT 09/18/2023 9:04 AM TRAVEL DIRECTOR TYPE AND SCREEN Routine 09/18/2023 9:04 AM TRAVEL DIRECTOR Stenosis Aortic Valve Acquired Acquired Aortic Valve Disorder BASIC METABOLIC PANEL, S/P Routine 09/18/2023 9:04 AM TRAVEL DIRECTOR Stenosis Aortic Valve Acquired Acquired Aortic Valve Disorder CBC WITHOUT DIFFERENTIAL, B Routine 09/18/2023 9:04 AM TRAVEL DIRECTOR Stenosis Aortic Valve Acquired Acquired Aortic Valve [...] 1V PORTABLE-Outside Chest Xray (11/11/2023 8:30 AM TRAVEL DIRECTOR) Only the most recent of3 resultswithin the time period is included. Narrative IIMS - 11/11/2023 1:45 PM TRAVEL DIRECTOR This order has been created and auto-finalized to support the import of outside images. If available, original interpretation can be found on the Media Tab in Chart Review, in Document Viewer, or as an image in QREADS. If a re-interpretation or overread is required please follow defined workflow. ?? Provider Not In System IMG DIAGNOSTIC IM AGING PROCEDURES IIOH NA * INR Reflex, POCT, Blood (11/02/2023 12:42 PM TRAVEL DIRECTOR) Only the most recent of9 resultswithin the time period is included. INR Reflex, POCT, B 3.6 11/02/2023 12:41 PM TRAVEL DIRECTOR [id number] Comment: ----ADDITIONAL INFORMATION---- Standard intensity warfarin therapeutic range: 2.0 to 3.0 ?? High intensity warfarin therapeutic range: 2.5 to 3.5 Blood (Blood, Capillary) 11/02/2023 12:42 PM TRAVEL DIRECTOR 11/02/2023 12:41 PM TRAVEL DIRECTOR Kylah Crum M.D. LAB POCT ORDERABLES - DEVICE [facility] [address] [place] [address], [facility] [id number] [facility] in [address] [address] * (ABNORMAL) Basic Metabolic Panel (10/01/2023 12:02 PM TRAVEL DIRECTOR) Only the most recent of15 resultswithin the time period is included. Potassium, P 4.5 3.6 - 5.2 mmol/L 10/01/2023 4:33 PM TRAVEL DIRECTOR OWAT Sodium, P 137 135 - 145 mmol/L 10/01/2023 4:33 PM TRAVEL DIRECTOR OWAT Chloride, P 99 98 - 107 mmol/L 10/01/2023 4:33 PM TRAVEL DIRECTOR OWAT Bicarbonate, P 24 22 - 29 mmol/L 10/01/2023 4:33 PM TRAVEL DIRECTOR OWAT Anion Gap, P 14 7 - 15 10/01/2023 4:33 PM TRAVEL DIRECTOR OWAT BUN (Blood Urea Nitrogen), P 34(H) 8 - 24 mg/dL 10/01/2023 4:33 PM TRAVEL DIRECTOR OWAT Creatinine 2.36(H) 0.74 - 1.35 mg/dL 10/01/2023 4:33 PM TRAVEL DIRECTOR OWAT Estimated GFR (eGFR) 29(L) >=60 mL/min/BSA 10/01/2023 4:33 PM TRAVEL DIRECTOR OWAT Comment: Estimated GFR calculated using the 2020 CKD_EPI creatinine equation. Calcium, Total, P 8.7(L) 8.8 - 10.2 mg/dL 10/01/2023 4:33 PM TRAVEL DIRECTOR OWAT Glucose, P 222(H) 70 - 140 mg/dL 10/01/2023 4:33 PM TRAVEL DIRECTOR OWAT Blood (Blood, Venous) 10/01/2023 12:02 PM TRAVEL DIRECTOR 10/01/2023 3:43 PM TRAVEL DIRECTOR Kylah Crum M.D. LAB BLOOD ADD-ON Performing Organization Address City/[facility]/ZIP Co de Phone Number [facility] [address] [place] [address], [facility] OWAT [facility] [address] [place] [address] * (ABNORMAL) Prothrombin Time (PT) (09/28/2023 1:41 PM TRAVEL DIRECTOR) Only the most recent of15 resultswithin the time period is included. Prothrombin Time, P 18.4(H) 9.4 - 12.5 sec 09/28/2023 4:01 PM TRAVEL DIRECTOR OWAT INR 1.6 0.9 - 1.1 09/28/2023 4:01 PM TRAVEL DIRECTOR OWAT Comment: ----ADDITIONAL INFORMATION---- Standard intensity warfarin therapeutic range: 2.0 to 3.0 ?? High intensity warfarin therapeutic range: 2.5 to 3.5 Blood (Blood, Venous) 09/28/2023 1:41 PM TRAVEL DIRECTOR 09/28/2023 3:32 PM TRAVEL DIRECTOR Sammi Kothari APRN, C.N.P., D.N.P. LAB BL OOD ADD-ON Performing Organization Address [facility]/ZIP Co de Phone Number [facility] [address] [place] [address], [facility] OWAT [facility] [address] [place] [address] * (ABNORMAL) Glucose, POCT (09/26/2023 11:37 AM TRAVEL DIRECTOR) Only the most recent of36 resultswithin the time period is included. Glucose, POCT, B 190(H) 70 - 140 mg/dL 09/26/2023 11:54 AM TRAVEL DIRECTOR PCLX Site Capillary 09/26/2023 11:54 AM TRAVEL DIRECTOR PCLX Last Intake 3-4 hours 09/26/2023 11:54 AM TRAVEL DIRECTOR PCLX Blood 09/26/2023 11:3 7 AM TRAVEL DIRECTOR 09/26/2023 11:54 AM TRAVEL DIRECTOR Unknown Provider LAB POCT ORDERABLES- MANUAL Performing Organization Address [facility] de Phone Number POC [facility] [address] PCLX [facility] POC [address] [place] [address] * (ABNORMAL) CBC without Differential (09/26/2023 6:58 AM TRAVEL DIRECTOR) Only the most recent of10 resultswithin the time period is included. Pathologist [facility] Hemoglobin 8.3(L) 13.2 - 16.6 g/dL 09/26/2023 8:04 AM TRAVEL DIRECTOR DTL Hematocrit 25.5(L) 38.3 - 48.6 % 09/26/2023 8:04 AM TRAVEL DIRECTOR DTL Erythrocytes 2.70(L) 4.35 - 5.65 x10(12)/L 09/26/2023 8:04 AM TRAVEL DIRECTOR DTL MCV 94.4 78.2 - 97.9 fL 09/26/2023 8:04 AM TRAVEL DIRECTOR DTL RBC Distrib Width 13.5 11.8 - 14.5 % 09/26/2023 8:04 AM TRAVEL DIRECTOR DTL Platelet Count 214 135 - 317 x10(9)/L 09/26/2023 8:04 AM TRAVEL DIRECTOR DTL Leukocytes 6.7 3.4 - 9.6 x10(9)/L 09/26/2023 8:04 AM TRAVEL DIRECTOR DTL Blood (Blood, Venous) 09/26/2023 6:58 AM TRAVEL DIRECTOR 09/26/2023 7:43 AM TRAVEL DIRECTOR Jenny Jay, B.Betty., B.A.O. LAB BLOOD ADD-ON [facility] [address] [place] [address], [facility] DTL [facility] [address] [place] [address] * DX Chest AP or PA and Lateral 2 Views (09/25/2023 7:26 AM TRAVEL DIRECTOR) Only the most recent of2 resultswithin the time period is included. Anatomical Region Laterality Modality Chest, Thoracic RST LOS, Tho racic ARZ LOS, Thoracic FLA LOS N/A Digital Radiography 09/25/2023 8:59 AM TRAVEL DIRECTOR Impressions 09/25/2023 9:01 AM TRAVEL DIRECTOR Sternotomy with aortic valve replacement. Mild enlargement of cardiac silhouette. Loop recorder. Trace pleural effusions. Azygos fissure. Aortic calcification. Degenerative arthritis thoracic spine. No pneumothorax. No significant change since 09/23/2023. Narrative 09/25/2023 9:01 AM TRAVEL DIRECTOR EXAM: ??DX CHEST AP OR PA AND [...] * ECG 12 Lead (09/25/2023 4:55 AM TRAVEL DIRECTOR) Only the most recent of2 resultswithin the time period is included. Ventricular Rate ECG/Min 69 BPM MUSE CA Interval 140 ms MUSE QRSD Interval 86 ms MUSE QT Interval 420 ms MUSE QTC Interval 450 ms MUSE P Bailey 30 degrees MUSE R Bailey 29 degrees MUSE T Wave Bailey 74 degrees MUSE 09/25/2023 4:55 AM TRAVEL DIRECTOR 09/25/2023 5:12 AM TRAVEL DIRECTOR Impressions MUSE - 09/25/2023 5:13 AM TRAVEL DIRECTOR Normal sinus rhythm Low voltage QRS in [...] 2D ECHO DOPPLER COLOR (09/24/2023 3:26 PM TRAVEL DIRECTOR) Ejection Fraction 64 MC CV EIMS Mid-Ascending [...] Region Laterality Modality Echocardiography 09/24/2023 1:57 PM TRAVEL DIRECTOR Impressions 09/24/2023 5:48 PM TRAVEL DIRECTOR Echocardiogram performed per dismissal echo protocol. Status [...] the Order-Level Documents. Narrative 09/24/2023 5:48 PM TRAVEL DIRECTOR For the complete report, see the Order-Level [...] disc not well seen. Mean aortic prosthetic [id number] mmHg; EOA 2.1 cm2. Trivial (washing jets) [...] Documents. Laila Basurto P.A.-C. CV ECHO PROCE DURES * (ABNORMAL) Hemoglobin (09/23/2023 3:44 PM TRAVEL DIRECTOR) Hemoglobin 8.1(L) 13.2 - 16.6 g/dL 09/23/2023 3:52 PM TRAVEL DIRECTOR STMA Blood (Blood, Venous) 09/23/2023 3:44 PM TRAVEL DIRECTOR 09/23/2023 3:49 PM TRAVEL DIRECTOR Laila Basurto P.A.-C. LAB BLOOD ADD -ON [facility] [address] [place] [address], [facility] [address] [place] [address] * (ABNORMAL) Hepatic Function Panel (09/23/2023 7:31 AM TRAVEL DIRECTOR) Bilirubin, Total, S 0.5 0.0 - 1.2 mg/dL 09/23/2023 9:47 AM TRAVEL DIRECTOR DTL Bilirubin, Direct, S <0.2 0.0 - 0.3 mg/dL 09/23/2023 9:47 AM TRAVEL DIRECTOR DTL Aspartate Aminotransferase (AST), S 21 8 - 48 U/L 09/23/2023 9:47 AM TRAVEL DIRECTOR DTL Alanine Aminotransferase (ALT), S 9 7 - 55 U/L 09/23/2023 9:47 AM TRAVEL DIRECTOR DTL Alkaline Phosphatase, S 63 40 - 129 U/L 09/23/2023 9:47 AM TRAVEL DIRECTOR DTL Albumin, S 3.0(L) 3.5 - 5.0 g/dL 09/23/2023 9:47 AM TRAVEL DIRECTOR DTL Protein, Total, S 4.9(L) 6.3 - 7.9 g/dL 09/23/2023 9:47 AM TRAVEL DIRECTOR DTL Blood (Blood, Venous) 09/23/2023 7:31 AM TRAVEL DIRECTOR 09/23/2023 9:19 AM TRAVEL DIRECTOR Laila Basurto P.A.-C. LAB BLOOD ADD -ON [facility] [address] [place] [address], [facility] DTL [facility] [address] [place] [address] * Transfuse Red Blood Cells : (09/22/2023 4:21 PM TRAVEL DIRECTOR) Only the most recent of5 resultswithin the time period is included. Laila Basurto P.A.-C. BLOOD TRANSFU RAHUL ORDERABLES * Type and Screen (with Reflex Antibody ID) (09/22/2023 7:01 AM TRAVEL DIRECTOR) Only the most recent of2 resultswithin the time period is included. ABORh A Neg Not applicable 09/22/2023 2:10 PM TRAVEL DIRECTOR STRM Antibody Screen Negative Negative 09/22/2023 2:19 PM TRAVEL DIRECTOR STRM Type & Screen Expiration 09/25/2023 23:59 09/22/2023 2:10 PM TRAVEL DIRECTOR STRM Testing Location Mercedes DEFAULT 09/22/2023 1:41 PM TRAVEL DIRECTOR STRM Blood (Blood, Venous) 09/22/2023 7:01 AM TRAVEL DIRECTOR 09/22/2023 1:41 PM TRAVEL DIRECTOR Laila Basurto P.A.-C. LAB BLOOD BAN K TEST ORDERABLES Performing Organization Address City/[facility]/ZIP Co de Phone Number [facility] [address] [place] [address], [facility] STRM [facility] [address] [place] [address] * Patient Status (09/21/2023 6:35 AM TRAVEL DIRECTOR) Only the most recent of4 resultswithin the time period is included. FIO2 0.21 0.21=AIR 09/21/2023 6:39 AM TRAVEL DIRECTOR STMA Spont. breaths/min 18 09/21/2023 6:39 AM TRAVEL DIRECTOR STMA Blood 09/21/2023 6:35 AM TRAVEL DIRECTOR 09/21/2023 6:39 AM TRAVEL DIRECTOR Bryce Wills M.D. LAB BLOOD NON ADD-ON [facility] [address] [place] [address], [facility] [address] [place] [address] * (ABNORMAL) Blood Gas with Coox, Arterial (09/21/2023 6:35 AM TRAVEL DIRECTOR) Only the most recent of10 resultswithin the time period is included. pO2 67(L) 83 - 108 mm Hg 09/21/2023 6:41 AM TRAVEL DIRECTOR STMA pCO2 46 35 - 48 mm Hg 09/21/2023 6:41 AM TRAVEL DIRECTOR STMA pH 7.41 7.35 - 7.45 pH 09/21/2023 6:41 AM TRAVEL DIRECTOR STMA Base Excess 4(H) -2 - 3 mmol/L 09/21/2023 6:41 AM TRAVEL DIRECTOR STMA HCO3 29(H) 22 - 26 mmol/L 09/21/2023 6:41 AM TRAVEL DIRECTOR STMA Hemoglobin, Venous 8.2(L) 13.2 - 16.6 g/dL 09/21/2023 6:41 AM TRAVEL DIRECTOR STMA O2Hb 92.5(L) 94.0 - 98.0 % 09/21/2023 6:41 AM TRAVEL DIRECTOR STMA COHb 2.0 <3.0 % 09/21/2023 6:42 AM TRAVEL DIRECTOR STMA MetHb <1.0 <1.5 % 09/21/2023 6:41 AM TRAVEL DIRECTOR STMA CtO2 10.8(L) 18.0 - 21.0 vol % 09/21/2023 6:42 AM TRAVEL DIRECTOR STMA Arterial Sample Site Art Line 09/21/2023 6:41 AM TRAVEL DIRECTOR [facility] Comment:Mina's test not don e. Blood (Blood, Arterial) 09/21/2023 6:35 AM TRAVEL DIRECTOR 09/21/2023 6:39 AM TRAVEL DIRECTOR Bryce Wills M.D. LAB BLOOD NON ADD-ON [facility] [address] [place] [address] * (ABNORMAL) Phosphorus Inorganic (09/21/2023 5:11 AM TRAVEL DIRECTOR) Phosphorus (Inorganic), S 5.4(H) 2.5 - 4.5 mg/dL 09/21/2023 6:03 AM TRAVEL DIRECTOR DTL Blood (Blood, Venous) 09/21/2023 5:11 AM TRAVEL DIRECTOR 09/21/2023 5:50 AM TRAVEL DIRECTOR Enmanuel Edward P.A.-C. LAB BLOOD ADD-ON Performing Organization Address City/[facility]/ZIP Co de Phone Number [facility] [address] [place] [address] * (ABNORMAL) Magnesium (09/21/2023 5:11 AM TRAVEL DIRECTOR) Only the most recent of2 resultswithin the time period is included. Magnesium, S 2.4(H) 1.7 - 2.3 mg/dL 09/21/2023 6:03 AM TRAVEL DIRECTOR DTL Blood (Blood, Venous) 09/21/2023 5:11 AM TRAVEL DIRECTOR 09/21/2023 5:50 AM TRAVEL DIRECTOR Enmanuel Edward P.A.-C. LAB BLOOD ADD-ON [facility] [address] [place] [address] * Potassium (09/20/2023 8:33 PM TRAVEL DIRECTOR) [facility] Potassium, P 5.0 3.6 - 5.2 mmol/L 09/20/2023 8:56 PM TRAVEL DIRECTOR STMA Blood (Blood, Venous) 09/20/2023 8:33 PM TRAVEL DIRECTOR 09/20/2023 8:38 PM TRAVEL DIRECTOR Yenifer Mercado P.A.-C. LAB BLOOD ADD -ON [facility] [address] [place] [address] * Lactate, Whole Blood (09/20/2023 4:11 AM TRAVEL DIRECTOR) Only the most recent of8 resultswithin the time period is included. [facility] Lactate, B 1.5 0.5 - 2.2 mmol/L 09/20/2023 4:18 AM TRAVEL DIRECTOR STMA Blood (Blood, Arterial) 09/20/2023 4:11 AM TRAVEL DIRECTOR 09/20/2023 4:15 AM TRAVEL DIRECTOR Lobito Melgar APRN, C.N.P., M.S.N. L AB BLOOD NON ADD-ON [facility] [address] [place], [place] [id number] [place] [address] 200 [place] [address] * (ABNORMAL) Blood Gas without Coox, Arterial (09/20/2023 4:11 AM TRAVEL DIRECTOR) [facility] pO2 79(L) 83 - 108 mm Hg 09/20/2023 4:18 AM TRAVEL DIRECTOR STMA pCO2 43 35 - 48 mm Hg 09/20/2023 4:18 AM TRAVEL DIRECTOR STMA pH 7.37 7.35 - 7.45 pH 09/20/2023 4:18 AM TRAVEL DIRECTOR STMA Base Excess 0 -2 - 3 mmol/L 09/20/2023 4:18 AM TRAVEL DIRECTOR STMA HCO3 25 22 - 26 mmol/L 09/20/2023 4:18 AM TRAVEL DIRECTOR STMA Arterial Sample Site Art Line 09/20/2023 4:18 AM TRAVEL DIRECTOR STMA Comment:Mina's test not don e. Blood (Blood, Arterial) 09/20/2023 4:11 AM TRAVEL DIRECTOR 09/20/2023 4:15 AM TRAVEL DIRECTOR Jenny Jay, Nicky.Ch., B.A.O. LAB BLOOD NON ADD-ON [facility] [address] STMA [facility] [address] [place] [address] * APTT (Activated Partial Thromboplastin Time) (09/20/2023 4:09 AM TRAVEL DIRECTOR) Only the most recent of7 resultswithin the time period is included. Activated Partial Thrombopl Time, P 26 25 - 37 sec 09/20/2023 5:19 AM TRAVEL DIRECTOR DTL Blood (Blood, Venous) 09/20/2023 4:09 AM TRAVEL DIRECTOR 09/20/2023 4:43 AM TRAVEL DIRECTOR Jenny Jay, Nicky.Ch., B.A.O. LAB BLOOD ADD-ON [facility] [address] DTL [facility] [address] [place] [address] * DX Chest Portable with AM Rounds 1 View (09/20/2023 3:33 AM TRAVEL DIRECTOR) Anatomical Region Laterality Modality Chest, Thoracic RST LOS, Tho racic ARZ LOS, Thoracic FLA LOS N/A Digital Radiography 09/20/2023 5:18 AM TRAVEL DIRECTOR Impressions 09/20/2023 5:20 AM TRAVEL DIRECTOR Compared to 09/19/2023. Extubation. Removal of right IJ SGC, sheath remains. Slightly decreased lung volumes. No other significant change. Pulmonary vascular congestion. Bibasilar atelectasis. No definite pneumothorax. Trace pneumomediastinum. Enlarged cardiac silhouette. Retrocardiac atelectasis/consolidation. Azygous fissure. Sternotomy. Mediastinal clips and drains. Loop recorder. Narrative 09/20/2023 5:20 AM TRAVEL DIRECTOR EXAM: ??DX CHEST PORTABLE WITH AM ROUNDS [...] Risk Score, Random, Urine (09/20/2023 3:24 AM TRAVEL DIRECTOR) TIMP2/IGFBP7 MANJEET Risk Score, U 0.45(H) <0.30 (ng/mL)(2) /1000 09/20/2023 4:12 AM TRAVEL DIRECTOR STMA Comment: ----ADDITIONAL INFORMATION---- <0.30= <0.30 is considered low risk for acute kidney injury. 0.30-2.00= 0.30-2.00 indicates increased risk for acute kidney injury. >2.00= >2.00 indicates high risk for acute kidney injury. Urine (Urine, Midstream) 09/20/2023 3:24 AM TRAVEL DIRECTOR 09/20/2023 3:24 AM TRAVEL DIRECTOR Jenny Jay, BKolby., B.A.O. LAB URINE ORDERABLES Performing Organization Address [facility] Co de Phone Number [facility] [address] [place] [address] * (ABNORMAL) Lactate (09/19/2023 7:43 PM TRAVEL DIRECTOR) Lactate, P 7.0(H) 0.5 - 2.2 mmol/L 09/19/2023 8:04 PM [facility]EL DIRECTOR [facility] Blood (Blood, Venous) 09/19/2023 7:43 PM TRAVEL DIRECTOR 09/19/2023 7:49 PM TRAVEL DIRECTOR Susu Fajardo LAB BLOOD NON ADD-ON Performing Organization Address [facility] Co de Phone Number [facility] [address] [place], [place] [address] [place] [address] 200 [place] [address] * DX Chest Portable 1 View (09/19/2023 5:45 PM TRAVEL DIRECTOR) Anatomical Region Laterality Modality Chest, Thoracic RST LOS, Tho racic ARZ LOS, Thoracic FLA LOS N/A Digital Radiography 09/19/2023 7:33 PM TRAVEL DIRECTOR Impressions 09/19/2023 8:26 PM TRAVEL DIRECTOR Interval retraction of the endotracheal tube, with tip now in the mid thoracic trachea. Otherwise no significant changes since 2:23 PM. Right IJ Burtrum-Sepideh catheter with tip in the main pulmonary artery. Sternotomy wires and mediastinal surgical clips. Aortic valve replacement. Mediastinal drains. Mild bilateral interstitial thickening and perihilar opacities. No definite pleural effusion. Aortic calcifications. Narrative 09/19/2023 8:26 PM TRAVEL DIRECTOR EXAM: ??DX CHEST PORTABLE 1 VIEW Procedure Note Bhaskar Rob M.B.B.S., Mare. - 09/19/2023 EXAM: DX CHEST PORTABLE 1 [...] * Transfuse Platelets : (09/19/2023 5:19 PM TRAVEL DIRECTOR) Only the most recent of3 resultswithin the time period is included. Radha Iqbal M.D. BLOOD TRANSFUSION OR DERABLES * (ABNORMAL) Cystatin C with Estimated GFR (09/19/2023 5:19 PM TRAVEL DIRECTOR) eGFR by Cystatin C 59(L) >60 mL/min/BSA 09/19/2023 8:00 PM TRAVEL DIRECTOR DTL Comment: Estimated GFR calculated using the [...] 0.67 - 1.21 mg/L 09/19/2023 8:00 PM TRAVEL DIRECTOR DTL Blood (Blood, Arterial Line) 09/19/2023 5:19 PM TRAVEL DIRECTOR 09/19/2023 5:53 PM TRAVEL DIRECTOR Zoraida Salmeron M.D., Ph.D. LAB BLOOD AD D-ON [facility] [employer] [facility] [address] [place] [address], [place] DTL [facility] [address] [place] [address] * Fibrinogen (09/19/2023 5:19 PM TRAVEL DIRECTOR) Only the most recent of6 resultswithin the time period is included. Fibrinogen, P 269 200 - 393 mg/dL 09/19/2023 5:30 PM TRAVEL DIRECTOR STMA Blood (Blood, Venous) 09/19/2023 5:19 PM TRAVEL DIRECTOR 09/19/2023 5:22 PM TRAVEL DIRECTOR Jenny Jay, B.Ch., B.A.O. LAB BLOOD ADD-ON [facility] [address] [place] [address], [facility] [address] [place] [address] * Sodium, B (09/19/2023 4:20 PM TRAVEL DIRECTOR) Only the most recent of7 resultswithin the time period is included. Pathologist [facility] Sodium, B 139 135 - 145 mmol/L 09/19/2023 4:23 PM TRAVEL DIRECTOR [facility] Blood (Blood, Arterial Line) 09/19/2023 4:20 PM TRAVEL DIRECTOR 09/19/2023 4:20 PM TRAVEL DIRECTOR Rowena Antonio M.D. LAB BLOOD NON A DD-ON [facility] [address] [place] [address], [facility] [address] [place] [address] * Potassium, Blood (09/19/2023 4:20 PM TRAVEL DIRECTOR) Only the most recent of7 resultswithin the time period is included. Potassium, B 4.7 3.6 - 5.2 mmol/L 09/19/2023 4:23 PM TRAVEL DIRECTOR STMA Blood (Blood, Arterial Line) 09/19/2023 4:20 PM TRAVEL DIRECTOR 09/19/2023 4:20 PM TRAVEL DIRECTOR Rowena Antonio M.D. LAB BLOOD NON A DD-ON Performing Organization Address City/[facility] Co de Phone Number [facility] [address] [place] [address], [facility] [address] [place] [address] * (ABNORMAL) Glucose, Whole Blood (09/19/2023 4:20 PM TRAVEL DIRECTOR) Only the most recent of7 resultswithin the time period is included. Glucose 152(H) 70 - 140 mg/dL 09/19/2023 4:23 PM TRAVEL DIRECTOR [facility] Blood (Blood, Arterial Line) 09/19/2023 4:20 PM TRAVEL DIRECTOR 09/19/2023 4:20 PM TRAVEL DIRECTOR Rowena Antonio M.D. LAB BLOOD ADD-O N Performing Organization Address [facility] Co de Phone Number [facility] [address] [place] [address], [facility] [address] [place] [address] * (ABNORMAL) Platelet Count (09/19/2023 4:20 PM TRAVEL DIRECTOR) Only the most recent of5 resultswithin the time period is included. Platelet Count 94(L) 135 - 317 x10(9)/L 09/19/2023 4:27 PM TRAVEL DIRECTOR STMA Blood (Blood, Arterial Line) 09/19/2023 4:20 PM TRAVEL DIRECTOR 09/19/2023 4:20 PM TRAVEL DIRECTOR Rowena Antonio M.D. LAB BLOOD ADD-O N Performing Organization Address [facility] Co de Phone Number [facility] [address] [place] [address], [facility] [address] [place] [address] * Calcium, Ionized (09/19/2023 4:20 PM TRAVEL DIRECTOR) Only the most recent of7 resultswithin the time period is included. Calcium, Ionized, B 5.02 4.65 - 5.30 mg/dL 09/19/2023 4:23 PM TRAVEL DIRECTOR STMA Blood (Blood, Arterial Line) 09/19/2023 4:20 PM TRAVEL DIRECTOR 09/19/2023 4:20 PM TRAVEL DIRECTOR Rowena Antonio M.D. LAB BLOOD NON A DD-ON [facility] [address] [place] [address], [facility] [address] [place] [address] * Transfuse Pooled Cryoprecipitate: (09/19/2023 3:54 PM TRAVEL DIRECTOR) Only the most recent of2 resultswithin the time period is included. Rowena Antonio M.D. BLOOD TRANSFUSI ON ORDERABLES * Thromboelastograph, Kaolin + Heparinase (09/19/2023 3:37 PM TRAVEL DIRECTOR) R-Heparinase, TEG 4.7 1.9 - 6.5 min 09/19/2023 5:46 PM TRAVEL DIRECTOR STMA K-Heparinase, TEG 1.3 1.0 - 1.9 min 09/19/2023 5:46 PM TRAVEL DIRECTOR STMA Angle-Heparina se, TEG 72.0 63.5 - 75.1 degrees 09/19/2023 5:46 PM TRAVEL DIRECTOR STMA MA-Heparinase, TEG 65.9 57.7 - 69.3 mm 09/19/2023 5:46 PM TRAVEL DIRECTOR STMA Kq42-Gcinvfipa e, TEG 0.0 0.0 - 4.7 % 09/19/2023 5:46 PM TRAVEL DIRECTOR STMA Uc05-Czkqtramx e, TEG 1.1 0.0 - 15.0 % 09/19/2023 5:46 PM TRAVEL DIRECTOR STMA Blood (Blood, Arterial Line) 09/19/2023 3:37 PM TRAVEL DIRECTOR 09/19/2023 3:37 PM TRAVEL DIRECTOR Rowena Antonio M.D. LAB BLOOD NON A DD-ON Performing Organization Address [facility] Co de Phone Number [facility] [address] [place] [address], [facility] [address] [place] [address] * Thromboelastograph, Kaolin, Blood (09/19/2023 3:37 PM TRAVEL DIRECTOR) R, Kaolin, TEG 4.8 4.0 - 9.0 min 09/19/2023 5:46 PM TRAVEL DIRECTOR STMA K, Kaolin, TEG 1.3 1.0 - 1.8 min 09/19/2023 5:46 PM TRAVEL DIRECTOR STMA Angle, Kaolin, TEG 70.0 64.0 - 78.1 degrees 09/19/2023 5:46 PM TRAVEL DIRECTOR STMA MA, Kaolin, TEG 65.4 57.1 - 72.6 mm 09/19/2023 5:46 PM TRAVEL DIRECTOR STMA Ly30, Kaolin, TEG 0.0 0.0 - 4.8 % 09/19/2023 5:46 PM TRAVEL DIRECTOR STMA Blood (Blood, Arterial Line) 09/19/2023 3:37 PM TRAVEL DIRECTOR 09/19/2023 3:37 PM TRAVEL DIRECTOR Rowena Antonio M.D. LAB BLOOD NON A DD-ON Performing Organization Address [facility] Co de Phone Number [facility] [address] [place] [address], [facility] [address] [place] [address] * DX Chest Retained Surgical Item 1 View (09/19/2023 2:30 PM TRAVEL DIRECTOR) Anatomical Region Laterality Modality Chest, Thoracic RST LOS, Tho racic ARZ LOS, Thoracic FLA LOS N/A Digital Radiography 09/19/2023 2:32 PM TRAVEL DIRECTOR Impressions 09/19/2023 2:39 PM TRAVEL DIRECTOR The aforementioned object in question is not identified. New sternotomy, mediastinal clips, AVR, mediastinal drains, right IJ Burtrum-Sepideh catheter tip at the MPA are identified. Likely small amount of mediastinal air. ET tube tip is low lying, approximately 1 cm above the blaine, correlation with chin position is recommended. Loop recorder. Shallower inspiration with accentuation of the cardiac silhouette and vascular crowding. Discussed with Dr. Stanford at 2:36 PM on 09/19/2023. Narrative 09/19/2023 2:39 PM TRAVEL DIRECTOR EXAM: DX CHEST RETAINED SURGICAL ITEM 1 [...] sternotomy,mediastinal clips, AVR, mediastinal drains, right IJ Burtrum-Sepideh cathetertip at the MPA are identified. Likely [...] RBC (Cell Salvage) : (09/19/2023 1:28 PM TRAVEL DIRECTOR) Only the most recent of2 resultswithin the time period is included. Radha Iqbal M.D. BLOOD TRANSFUSION OR DERABLES * Transfuse Fresh Frozen Plasma : (09/19/2023 1:24 PM TRAVEL DIRECTOR) Radha Iqbal M.D. BLOOD TRANSFUSION OR DERABLES * ACT (Activated Clotting Time), POCT (09/19/2023 12:42 PM TRAVEL DIRECTOR) Only the most recent of8 resultswithin the time period is included. Activated Clotting Time 126 82 - 152 sec 09/19/2023 12:45 PM TRAVEL DIRECTOR PCLX 09/19/2023 12:4 2 PM TRAVEL DIRECTOR 09/19/2023 12:45 PM TRAVEL DIRECTOR Unknown Provider LAB POCT ORDERABLES - DEVICE Performing Organization Address [facility] Co de Phone Number POC [facility] [address] [place] [address], [facility] PCLX [facility] POC [address] [place] [address] * (ABNORMAL) Hemoglobin (HGB), POCT (09/19/2023 12:17 PM TRAVEL DIRECTOR) Only the most recent of2 resultswithin the time period is included. Pathologist [facility] Hemoglobin, POCT, B 8.7(L) 13.2 - 16.6 g/dL 09/19/2023 12:23 PM TRAVEL DIRECTOR PCSM Blood 09/19/2023 12:1 7 PM TRAVEL DIRECTOR 09/19/2023 12:23 PM TRAVEL DIRECTOR Unknown Provider LAB POCT ORDERABLES - DEVICE Performing Organization Address [facility] Co de Phone Number POC [facility] [address] [place] [address], [facility] PCSM [facility] POC [address] [place] [address] * Surgical Pathology, Frozen Lab (09/19/2023 11:34 AM TRAVEL DIRECTOR) Pathologist [facility] 09/25/2023 10:47 AM TRAVEL DIRECTOR STMA Participated in the Interpretation Amber Gutierrez M.D. -Pathology Resident 09/25/2023 10:47 AM TRAVEL DIRECTOR [facility] Report electronically signed by Zohreh De La Cruz M.D. I verify that I have examined all relevant slides/materials for the specimen(s) and rendered or confirmed the diagnosis. 09/25/2023 10:47 AM TRAVEL DIRECTOR STMA Gross Description A. ??Received fresh labeled with the patient's name, medical record number, and designated as heart, left atrial appendage. ??It consists of a 2.6 x 2.4 x 1.3 cm atrial appendage without mural thrombus. ??Steam Conditioner Filling sections are submitted for microscopy in cassette A1. ??Grossed by Teresa Qureshi M.S., GEORGE([facility]). B. ??Received fresh labeled with the patient's [...] up to 0.2 cm in greatest size. ??Steam Conditioner Filling sections are submitted for microscopy in cassette B1, following decalcification. Grossed by Teresa Qureshi M.S., GEORGE([facility]). 09/25/2023 10:47 AM TRAVEL DIRECTOR STMA Block Summary A Heart, left atrial appendage A1 B Heart, aortic valve B1 09/25/2023 10:47 AM TRAVEL DIRECTOR STMA Interpretation FINAL DIAGNOSIS A. ??Heart, left atrial appendage, excision: Mild myocyte hypertrophy and mild interstitial fibrosis, without mural thrombus. B. ??Heart, aortic valve, excision: ? 1. ??Degenerative fibrocalcific aortic valve disease, with moderate calcification ?(evaluated with Verhoeff-Van Gieson stain on block B1). ? 2. ??History of severe aortic stenosis and trivial aortic regurgitation. Diagnosis was made via digital imaging. 09/25/2023 10:47 AM TRAVEL DIRECTOR STMA Tissue (Heart, Atrium) 09/19/2023 11:34 AM TRAVEL DIRECTOR Tissue (Heart Valve, Aortic) 09/19/2023 11:34 AM TRAVEL DIRECTOR Sarah Miller M.D., M.P.H. LAB SURG PATH ORDERABLES [facility] [address] [place] [address], [facility] STMA [address] [place] [address] * (EDMUNDO) - INTRAOPERATIVE WITH COLOR AND LIMITED DOPPLER (PROBE NOT PLACED) (09/19/2023 9:56 AM TRAVEL DIRECTOR) Ejection Fraction [facility] Anatomical Region Laterality Modality Echocardiography 09/19/2023 6:43 AM TRAVEL DIRECTOR Impressions 09/19/2023 1:45 PM TRAVEL DIRECTOR PROCEDURE:Transesophageal echocardiogram performed at the request of the primary member service specialist. Transesophageal echocardiogram completed without complications. PRE-BYPASS:Pre-bypass left [...] the Order-Level Documents. Narrative 09/19/2023 1:45 PM TRAVEL DIRECTOR For the complete report, see the Order-Level [...] PROCEDURE:Transesophageal echocardiogram performed at the request of [facility] member service specialist. Transesophageal echocardiogram completedwithout complications. PRE-BYPASS:Pre-bypass left ventricular [...] M.D., M.P.H. CV ECHO PROCE DURES * CA US GUIDE VASC ACCESS, CA INS/PLC FLOW DIR CATH, MC ANE INVASIVE CATH WITH ULTRASOUND, LDA ANE PACATH, LDA ANE INTRODUCER ONLY, MC ANE CENTRAL LINE GENERIC PERFORMABLE (09/19/2023 8:06 AM TRAVEL DIRECTOR) Deja Mari M.D. - 09/19/2023 8:06 AM TRAVEL DIRECTOR Radha Iqbal M.D. ? 09/19/2023 ??8:13 AM [...] fellow participated in the procedure, and the document management consultant was present for the entire procedure. Radha Iqbal M.D. PROCEDURE/MINOR SURG ICAL ORDERABLES * CA ECHO EDMUNDO 2D PLC ONLY (09/19/2023 7:55 AM TRAVEL DIRECTOR) Deja Mari M.D. - 09/19/2023 7:55 AM TRAVEL DIRECTOR Radha Iqbal M.D. ? 09/19/2023 ??8:01 AM [...] fellow participated in the procedure, and the document management consultant was present for the entire procedure. Radha Iqbal M.D. ANESTHESIA ORDERABLE S * Airway (09/19/2023 7:52 AM TRAVEL DIRECTOR) Narrative Radha Iqbal M.D. - 09/19/2023 7:52 AM TRAVEL DIRECTOR Radha Iqbal M.D. ? 09/19/2023 ??8:56 AM [...] Radha Iqbal M.D. ANESTHESIA ORDERABLE S * CA ARTL CATH/CNULA MONITOR PERC, LDA ANE ARTERIAL LINE INSERTION (09/19/2023 7:43 AM TRAVEL DIRECTOR) Narrative Deja Barney M.D. - 09/19/2023 7:43 AM TRAVEL DIRECTOR Radha Iqbal M.D. ? 09/19/2023 ??8:19 AM [...] fellow participated in the procedure, and the document management consultant was present for the entire procedure. Deja Barney M.D. PROCEDURE/MINOR SURG ICAL ORDERABLES * Non-Radiology Image-Anesthesiology Image Exam (09/19/2023 7:00 AM TRAVEL DIRECTOR) 09/19/2023 7:00 AM TRAVEL DIRECTOR Narrative [facility] - 09/19/2023 8:29 AM TRAVEL DIRECTOR This order has been created and auto-finalized to support the import of images acquired without order. The clinical documentation to support these images can be found on the encounter that produced images. Provider Not In System IMG NON RAD IMAGI NG PROCEDURES IIOH NA * (ABNORMAL) Reticulocyte Profile (09/05/2023 3:22 [...] 3:22 PM CDT 09/05/2023 3:32 PM CDT Cata Mendez APRN.N.P., D.N.P. L AB BLOOD ADD-ON [facility] [address] [place] [address], [facility] DTL [facility] [address] [place] [address] * (ABNORMAL) CBC-Preop with reflex anemia panel [...] (Blood, Venous) 09/05/2023 3:22 PM CDT Narrative [facility] - 09/05/2023 3:39 PM CDT Specimen Information: Specimen ID: [id number] Specimen Type: Blood Specimen Collection Start Date: 09/05/2023 ??3:22 PM Specimen ID: [id number] Specimen Type: Blood Specimen Collection Start Date: 09/05/2023 ??3:22 PM Specimen Received Date: 09/05/2023 ??3:32 PM Specimen ID: [id number] Specimen Type: Blood Specimen Collection Start Date: 09/05/2023 ??3:22 PM Norman Roca APRN C.N.P., D.N.P. L AB BLOOD ADD-ON [facility] [address] [place] [address], [facility] [address] [place] [address] * (ABNORMAL) Methylmalonic Acid (MMA), Quantitative (09/05/2023 [...] developed and its performance characteristics determined by [facility] in a manner consistent with CLIA requirements. This test has not been cleared or approved by the U.S. Food and Drug Administration. Blood 09/05/2023 3:22 PM CDT 09/06/2023 7:43 AM CDT Norman Roca APRN, C.N.P., D.N.P. L AB BLOOD ADD-ON Performing Organization Address City/[facility]/ZIP Co de Phone Number [facility] [address] [place], [place] [id number] [place] [address] [place] [address] * (ABNORMAL) Iron and Total Iron-Binding Capacity (09/05/2023 3:22 PM CDT) Pathologist [facility] Iron 64 50 - 150 mcg/dL 09/05/2023 4:04 PM CDT DTL Total Iron Binding Capacity 219(L) 250 - 400 mcg/dL 09/05/2023 4:04 PM CDT DTL Percent Saturation 29 14 - 50 % 09/05/2023 4:04 PM CDT DTL Blood 09/05/2023 3:22 PM CDT 09/05/2023 3:41 PM CDT Norman Roca APRN, C.N.P., D.N.P. L AB BLOOD ADD-ON Performing Organization Address [facility] [place]/ZIP Co de Phone Number [facility] 200 [place], [place] [id number] [place] [address] [facility] 200 [place] [address] * CRP (C-Reactive Protein) (09/05/2023 3:22 PM CDT) Pathologist [facility] C-Reactive Protein (CRP), S <3.0 <5.0 mg/L 09/05/2023 4:04 PM CDT DTL Blood 09/05/2023 3:22 PM CDT 09/05/2023 3:41 PM CDT Cata Mendez APRN.N.P., D.N.P. L AB BLOOD ADD-ON [facility] [address] 200 [place] [address] * Folate (09/05/2023 3:22 PM CDT) [facility] Folate, S 14.5 >=4.0 mcg/L 09/06/2023 7: 42 AM CDT DTL Blood 09/05/2023 3:22 PM CDT 09/05/2023 3:41 PM CDT Norman Roca APRN, Cata.N.P., D.N.P. L AB BLOOD ADD-ON [facility] 200 [place] [address] * Ferritin (09/05/2023 3:22 PM CDT) Pathologist [facility] Ferritin, S 256 31 - 409 mcg/L 09/05/2023 4:04 PM CDT DTL Blood 09/05/2023 3:22 PM CDT 09/05/2023 3:41 PM CDT Cata Mendez APRN.N.P., D.N.P. L AB BLOOD ADD-ON Performing Organization Address [facility] Co de Phone Number [facility] 200 [place], [place] [phone] [place] [address] 200 [place] [address] * (ABNORMAL) Vitamin B12 Assay (09/05/2023 3:22 PM CDT) Pathologist [facility] Vitamin B12 Assay, S 123(L) 180 - 914 ng/L 09/06/2023 7:42 AM CDT DT Comment: ----ADDITIONAL INFORMATION---- In patients being evaluated [...] APRN, C.N.P., D.N.P. L AB BLOOD ADD-ON Performing Organization Address [facility] Co de Phone Number [facility] 200 [place] [address], [facility] 200 [place] [address] * CT Chest Angiogram with IV Contrast [...] aortic valve calcification compatible with aortic stenosis. Radha Richards APRNNKory, D.N.P. IMG CT PROCEDURES from Last 3 Months Advance Directives For more information, please contact: [phone] Latest Code Status on File Code Status [...] Answer Comments Full Code: Discussed Care Teams Sanitizer Relationship Specialty Start Date End Date Kylah Crum M.D. [address] [place] [address] [place] [address] PCP - General Family Medicine 09/28/23
--- OUTSIDE RECORDS SUMMARY | 2023-12-04 12:10 | XMS_ITS | Encounter Summary ---
Author Name Unknown Organization [facility] Address [address] [place] [address] Care Team Providers Care Ct Scan Technician Name Role Phone Kylah Crum M.D. Primary Care Provider [phone] Reason for Visit * Reason Onset Date Comments Med Question 11/27/2023 Priority 2 Encounter Details Date Type Department Care Team (Latest Contact Info) Description 11/27/2023 Clinical Communication Division of Nephrology and Hypertension in [place], [place] [address] [place] [address] Mare Arauz M.D., Ph.D. [address] [place] [phone] Med Question (Priority 2) Social History Tobacco Use Types Packs/Day Years [...] your living situation today? I have a [facility] place to live 08/29/2023 Sex and Gender Information Value Date Recorded Sex Assigned at Male 08/29/2023 11:06 AM CDT Gender Identity Male 08/29/2023 11:06 AM CDT Sexual Orientation Straight 08/29/2023 11 :06 AM CDT documented as of this encounter Plan of Treatment Upcoming Encounters Date Type Department Care Team (Latest Contact Info) Description 12/21/2023 10:15 AM TWIST PACKER Clinical Communication Virtual Review in [place], [place] [address] [place] [address] 12/24/2023 2:00 PM TWIST PACKER Comprehensive Visit Department of Cardiovascular Medicine in [place], [place] [address] [place] [phone] Gudelia Soto M.D. [address] [place] [phone] 01/01/2024 3:45 PM TWIST PACKER Comprehensive Visit Division of Hematology in [place], [place] [address] [place] [address] Billy Segal APRN, C.N.P., D.N.P. [address] [place] [address] documented as of this encounter Visit Diagnoses Not on filedocumented in this encounter Additional Health Concerns Assessment Noted Time PHQ-9 Depression Total Score: 1 09/10/20 23 2:06 PM CDT documented as of this encounter Care Teams Ct Scan Technician Relationship Specialty Start Date End Date Kylah Crum M.D. [address] [place] [phone] PCP - General Family Medicine 09/28/23 documented as of this encounter
--- OUTSIDE RECORDS SUMMARY | 2023-12-04 12:10 | XMS_ITS | Encounter Summary ---
Author Name Unknown Organization [facility] Address [address] [place] [address] Care Team Providers Care Interior Design Principal Name Role Phone Kylah Crum M.D. Primary Care Provider [phone] Reason for Visit * Reason Onset Date Comments Anticoagulation 11/19/2023 Unable to reach Encounter Details Date Type Department Care Team (Latest Contact Info) Description 11/19/2023 Clinical Communication Department of Anticoagulation in [place], [place] [address] [place] [address] Lexi Carson Anticoagulation (Unable to reach) Social History Tobacco Use Types Packs/Day Years [...] money to buy more. Never true 08/29/20 23 Within the past 12 months, t he [...] your living situation today? I have a [facility] place to live 08/29/2023 Sex and Gender Information Value Date Recorded Sex Assigned at Male 08/29/2023 11:06 AM CDT Gender Identity Male 08/29/2023 11:06 AM CDT Sexual Orientation Straight 08/29/2023 11 :06 AM CDT documented as of this encounter Miscellaneous Notes * Telephone Encounter - Nidia Kuhn - 11/22/2023 9:27 AM CST Patient contacted today by staff as they are overdue for INR draw. Unable to reach. Second Attempt.Letter will be sent to patient and routed to PCP for awareness if patient does not contact us within a 14 day time period of missing appointment. No VM CAL DEVICE SALES * Telephone Encounter - Lexi Carson - 11/19/2023 10:02 AM CST Patient contacted today by staff as they are overdue for INR draw. Unable to reach. First Attempt. CAL DEVICE SALES documented in this encounter Plan of Treatment Upcoming Encounters Date Type Department Care Team (Latest Contact Info) Description 12/21/2023 10:15 AM MEDICAL DEVICE SALES Clinical Communication Virtual Review in [place], [place] [address] [place] [address] 12/24/2023 2:00 PM MEDICAL DEVICE SALES Comprehensive Visit Department of Cardiovascular Medicine in [place], [place] [address] [place] [phone] Gudelia Soto M.D. [address] [place] [phone] 01/01/2024 3:45 PM MEDICAL DEVICE SALES Comprehensive Visit Division of Hematology in [address] [phone] Billy Segal APRN, C.N.P., D.N.P. [address] [place] [phone] documented as of this encounter Visit Diagnoses Not on filedocumented in this encounter Additional Health Concerns Assessment Noted Time PHQ-9 Depression Total Score: 1 09/10/20 23 2:06 PM CDT documented as of this encounter Care Teams Interior Design Principal Relationship Specialty Start Date End Date Kylah Crum M.D. [address] [place] [phone] PCP - General Family Medicine 09/28/23 documented as of this encounter
--- OUTSIDE RECORDS SUMMARY | 2023-12-04 12:10 | XMS_ITS | Encounter Summary ---
Author Name Unknown Organization [facility] Address [address] [place] [address] Care Team Providers Care Welder Production Line Combination Name Role Phone Kylah Crum M.D. Primary Care Provider [phone] Reason for Visit * Reason Onset Date Comments Anticoagulation 11/22/2023 Encounter Details Date Type Department Care Team (Latest Contact Info) Description 11/22/2023 Clinical Communication Department of Anticoagulation in [place], [place] [address] [place] [address] Edna Gamble RSammi [address] [place] [phone] Anticoagulation Social History Tobacco Use Types Packs/Day Years [...] your living situation today? I have a [facility] place to live 08/29/2023 Sex and Gender Information Value Date Recorded Sex Assigned at Male 08/29/2023 11:06 AM CDT Gender Identity Male 08/29/2023 11:06 AM CDT Sexual Orientation Straight 08/29/2023 11 :06 AM CDT documented as of this encounter Miscellaneous Notes * Telephone Encounter - Edna Gamble R.N. - 11/22/2023 10:45 AM SENIOR COURTROOM CLERK Jong Harris Primary Care Anticoagulation Episode has been resolved due to transitioning to adifferent Anticoagulation program. Thank you for allowing us to participate in the anticoagulation management of your patient. Primary Care in [facility]ticoagulation Program at [phone]. InBasket: RST [facility] PRIMARY CARE ANTICOAG SERVICE OR COURTROOM CLERK documented in this encounter Plan of Treatment Upcoming Encounters Date Type Department Care Team (Latest Contact Info) Description 12/21/2023 10:15 AM SENIOR COURTROOM CLERK Clinical Communication Virtual Review in [place], [place] 200 [place] [address] 12/24/2023 2:00 PM SENIOR COURTROOM CLERK Comprehensive Visit Department of Cardiovascular Medicine in [place], [place] [address] [place] [phone] Gudelia Soto M.D. [address] [place] [phone] 01/01/2024 3:45 PM SENIOR COURTROOM CLERK Comprehensive Visit Division of Hematology in [place], [place] [address] [place] [phone] Billy Segal APRN, C.N.P., D.N.P. [address] [place] [phone] documented as of this encounter Visit Diagnoses Diagnosis Diabetes Mellitus Type 2 (HCC)- 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 Prosthesis Aortic Valve Cardiac Surgery Status Post Bypass Coronary Artery Graft Status Post Intermediate (Current) Anticoagulant Treatment Monitoring For Therapeutic Drug Therapy documented in this encounter Additional Health Concerns Assessment Noted Time PHQ-9 Depression Total Score: 1 09/10/20 23 2:06 PM CDT documented as of this encounter Care Teams Welder Production Line Combination Relationship Specialty Start Date End Date Kylah Crum M.D. [address] [place] [phone] PCP - General Family Medicine 09/28/23 documented as of this encounter
--- OUTSIDE RECORDS SUMMARY | 2023-12-04 12:10 | XMS_ITS | Encounter Summary ---
Author Name Unknown Organization [facility] Address [address] [place] [address] Care Team Providers Care Casino Floor Walker Name Role Phone Kylah Crum M.D. Primary Care Provider Encounter Details Date Type Department Care Team (Late st Contact Info) Description 11/08/2023 Clinical Communication Division of Nephrology and Hypertension in [place], [place] [address] [place] [address] Mare Arauz M.D., Ph.D. [address] [place] [address] Social History Tobacco Use Types Packs/Day Years [...] your living situation today? I have a [facility] place to live 08/29/2023 Sex and Gender Information Value Date Recorded Sex Assigned at Male 08/29/2023 11:06 AM CDT Gender Identity Male 08/29/2023 11:06 AM CDT Sexual Orientation Straight 08/29/2023 11 :06 AM CDT documented as of this encounter Miscellaneous Notes * Telephone Encounter - Mare Arauz M.D., Ph.D. - 11/08/2023 1:49 PM CST I received a call from freezer tunnel operator at [facility]. Patient had a kidney ultrasound with doppler scheduled for today. He is having difficulty to lay down due to shortness of breath. There is ascites and pleural fluid seen on the ultrasound. As patient is not able to tolerate decubital position, I have decided to cancel doppler examination and to finish just the renal ultrasound. We have recommended patient to go to the ED for further evaluation of his worsening shortness of breath which is likely associated with volume overload. He will benefit from further evaluation of hispleural effusion and ascites to decide if a thoracentesis and/or paracentesis are needed. Kay Seymour M.D., Ph.D. VISION MECHANIC documented in this encounter Plan of Treatment Upcoming Encounters Date Type Department Care Team (Latest Contact Info) Description 12/21/2023 10:15 AM TELEVISION MECHANIC Clinical Communication Virtual Review in [place], [place] [address] [place] [address] 12/24/2023 2:00 PM TELEVISION MECHANIC Comprehensive Visit Department of Cardiovascular Medicine in [place], [place] [address] [place] [phone] Gudelia Soto M.D. [address] [place] [phone] 01/01/2024 3:45 PM TELEVISION MECHANIC Comprehensive Visit Division of Hematology in [place], [place] [address] [place] [phone] Billy Segal APRN, C.N.P., D.N.P. [address] [place] [phone] documented as of this encounter Visit Diagnoses Not on filedocumented in this encounter Additional Health Concerns Assessment Noted Time PHQ-9 Depression Total Score: 1 09/10/20 2:06 PM CDT documented as of this encounter Care Teams Casino Floor Walker Relationship Specialty Start Date End Date Kylah Crum M.D. [address] [place] [phone] PCP - General Family Medicine 09/28/23 documented as of this encounter
--- OUTSIDE RECORDS SUMMARY | 2023-12-04 12:10 | XMS_ITS | Encounter Summary ---
Author Name Unknown Organization [facility] Address [address] [place] [address] Care Team Providers Care Softball Winder Name Role Phone Kylah Crum M.D. Primary Care Provider Encounter Details Date Type Department Care Team (Late st Contact Info) Description 11/30/2023 Orders Only Department of Cardiovascular Medicine in [place], [place] [address] [place] [address] Gudelia Soto M.D. [address] [place] [phone] Stenosis Aortic Valve Acquired (Primary Dx) Social [...] your living situation today? I have a [facility] place to live 08/29/2023 Sex and Gender Information Value Date Recorded Sex Assigned at Male 08/29/2023 11:06 AM CDT Gender Identity Male 08/29/2023 11:06 AM CDT Sexual Orientation Straight 08/29/2023 11 :06 AM CDT documented as of this encounter Plan of Treatment Upcoming Encounters Date Type Department Care Team (Latest Contact Info) Description 12/21/2023 10:15 AM SENIOR ACCOUNTS PAYABLE CLERK Clinical Communication Virtual Review in [place], [place] [address] [place] [address] 12/24/2023 2:00 PM SENIOR ACCOUNTS PAYABLE CLERK Comprehensive Visit Department of Cardiovascular Medicine in [place], [place] [address] [place] [phone] Gudelia Soto M.D. [address] [place] [phone] 01/01/2024 3:45 PM SENIOR ACCOUNTS PAYABLE CLERK Comprehensive Visit Division of Hematology in [place], [place] [address] [place] [phone] Billy Segal APRN, C.N.P., D.N.P. [address] [place] [phone] documented as of this encounter Visit Diagnoses Diagnosis Stenosis Aortic Valve Acquired- Primary documented in this encounter Additional Health Concerns Assessment Noted Time PHQ-9 Depression Total Score: 1 09/10/20 23 2:06 PM CDT documented as of this encounter Care Teams Softball Winder Relationship Specialty Start Date End Date Kylah Crum M.D. [address] [place] [phone] PCP - General Family Medicine 09/28/23 documented as of this encounter
--- OUTSIDE RECORDS SUMMARY | 2023-12-04 12:10 | XMS_ITS ---
Author Name Unknown Organization [facility] Address [address] [place] [address] Care Team Providers Care Roller Mechanic Name Role Phone Unavailable Unavailable Unavailable Surgery Details Not on file Complications Check Surgery Details section. Procedure Estimated Blood Loss Check Surgery Details section. Procedure Findings Check Surgery Details section. Procedure Specimens Taken Check Surgery Details section.
--- OUTSIDE RECORDS SUMMARY | 2023-12-04 12:10 | XMS_ITS | Encounter Summary ---
Author Name Unknown Organization [facility] Address [address] [place] [address] Care Team Providers Care Airframe And Power Plant Mechanic Name Role Phone Kylah Crum M.D. Primary Care Provider Reason for Visit * Reason Onset Date Comments Triage 11/28/2023 Encounter Details Date Type Department Care Team (Latest Contact Info) Description 11/28/2023 Clinical Communication Department of Cardiovascular Medicine in [place], [place] [address] [place] [address] Bethany Downs, RJarrettNJarrett [address] [place] [phone] Triage Social History Tobacco Use Types Packs/Day Years [...] your living situation today? I have a [facility] place to live 08/29/2023 Sex and Gender Information Value Date Recorded Sex Assigned at Male 08/29/2023 11:06 AM CDT Gender Identity Male 08/29/2023 11:06 AM CDT Sexual Orientation Straight 08/29/2023 11 :06 AM CDT documented as of this encounter Miscellaneous Notes * Telephone Encounter - Bethany Downs R.N. - 11/28/2023 8:18 AM UNHAIRER Pre-appointment valve clinic triage/record review. The following information has been collected from the medical record. It is not a comprehensive summary and has not been verified with the patient. The Appointment Triage Team does not establish a relationship with the patient, nor manage the patient's care outside of an initial review for the purposes of an appointment triage. For any questions, please contact the patient's primary provider. INTERNAL REFERRING PROVIDER: MEHRAN ARCHULETA Nephrology CHIEF COMPLAINT/REASON FOR VISIT status valvuloplasty 09/2023, needs to establish care with Cardiology. Requests Dr. Gudelia Soto S/P AVR 23 mm On-X and CABG x1, LAAO, and MAZE by Dr. Miller RECOMMENDATIONS TO APPOINTMENT OFFICE patient would like to see Dr. Gudelia Soto, as she has previously seen and treated his son Regular Valve testing / Consult; schedule with Dr. Felipe Soto if possible IRER documented in this encounter Plan of Treatment Upcoming Encounters Date Type Department Care Team (Latest Contact Info) Description 12/21/2023 10:15 AM UNHAIRER Clinical Communication Virtual Review in [place], [place] 200 [place] [address] 12/24/2023 2:00 PM UNHAIRER Comprehensive Visit Department of Cardiovascular Medicine in [place], [place] [address] [place] [phone] Gudelia Soto M.D. [address] [place] [phone] 01/01/2024 3:45 PM UNHAIRER Comprehensive Visit Division of Hematology in [address] [phone] Billy Segal APRN, C.N.P., D.N.P. [address] [place] [phone] documented as of this encounter Visit Diagnoses Not on filedocumented in this encounter Additional Health Concerns Assessment Noted Time PHQ-9 Depression Total Score: 1 09/10/20 2:06 PM CDT documented as of this encounter Care Teams Airframe And Power Plant Mechanic Relationship Specialty Start Date End Date Kylah Crum M.D. [address] [place] [phone] PCP - General Family Medicine 09/28/23 documented as of this encounter
--- OUTSIDE RECORDS SUMMARY | 2023-12-04 12:11 | XMS_ITS | Encounter Summary ---
Author Name Unknown Organization [facility] Address [address] [place] [address] Care Team Providers Care Flying Ii Instructor Name Role Phone Kylah Crum M.D. Primary Care Provider [phone] Reason for Visit * Outpatient (Routine) - Canceled Specialty Diagnoses / Procedures Referred By Sebas t Referred To Contact Anticoagulation Diagnoses 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 Cardiac Surgery Status Post Bypass Coronary Artery Graft Status Post Prosthesis Aortic Valve Kylah Crum M.D. [address] [place] [address] [facility] Referral ID Status Reason Start Date Expiration Date V isits Requested Visits Authorized [id number] Canceled 10/01/2023 09/30/2026 300 300 Encounter Details Date Type Department Care Team (Latest Contact Info) Description 10/29/2023 4:10 PM ANDROID PLATFORM DEVELOPER Anticoagulation Visit Department of Anticoagulation in [place], [place] [address] [place] [address] Kylah Crum M.D. [address] [place] [address] Diabetes Mellitus Type 2 (HCC) (Primary Dx); 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; Cardiac Surgery Status Post; Bypass Coronary Artery Graft Status Post; Prosthesis Aortic Valve; [facility] (Current) Anticoagulant Treatment; Monitoring For Therapeutic Drug Therapy Social History Tobacco Use Types Packs/Day Years [...] your living situation today? I have a [facility] place to live 08/29/2023 Sex and Gender Information Value Date Recorded Sex Assigned at Male 08/29/2023 11:06 AM CDT Gender Identity Male 08/29/2023 11:06 AM CDT Sexual Orientation Straight 08/29/2023 11 :06 AM CDT documented as of this encounter Patient Instructions * Patient Instructions* Keli Anguiano R.N. - 10/29/2023 4:10 PM ANDROID PLATFORM DEVELOPER Your next INR will be SundayNovember 02. You will need to call the Anticoagulation Program for warfarin dosing at the scheduled time for your nurse visit, as indicated on your Patient Appointment Guide (PAG). To reschedule your appointment or for questions about your warfarin, please call Primary Care Anticoagulation Program at [phone] from 7:30 am to 4:30 pm. Sunday-Sunday . When To Contact Your Health Care Provider If you are experiencing any of the following symptoms, Call 911 or go to the emergency room: chest pain, shortness of breath, vomiting or coughing up blood, large amounts of rectal bleeding, symptomsof a stroke- sudden weakness or inability to move a body part (the face, arm or leg), difficulty speaking or trouble understanding others, sudden blurred, decreased vision, or double vision, dizziness, loss of balance /coordination or a sudden, severe headache. If you fall and or hit your head or suffer a blow to the head, seek emergency treatment. Contact your health care provider about your Warfarin dose: Before any surgical procedures (including tooth extractions) and certain non- surgical procedures (for example, colonoscopies). When you are sick with a fever or develop persistent diarrhea or vomiting. If you doubt that you took your Warfarin as directed. If you start an antibiotic or any prescription drug or if you start any herbal or other furb-znt-rjstqpu product (check with your doctor, a nurse, or pharmacist). If you change your diet significantly. If you decide to stop or start using tobacco or alcohol. If you notice unusual bruising or bleeding. If you notice dark, tarry, or bright red stools or blood in your urine. If you have a painful and swollen calf. OID PLATFORM DEVELOPER documented in this encounter Progress Notes * Keli Anguiano R.N. - 10/29/2023 4:10 PM CST Warfarin Maintenance Nursing Protocol Goal Range 2.0-3.0 (version approved 12/2021) Visit Type: Telephone Primary reason for visit: Routine f/u OR f/u per previous visit recommendations Information provided by:patient INR result: 2.7 Goal range: 2.0-3.0 Inclusion Criteria: All inclusion criteria met. Proceeded to exclusion criteria. Exclusion Criteria: Section 1: No Section 1 exclusion criteria, proceeded to Section 2. Section 2: No Section 2 exclusion criteria, proceeded to screening criteria. Screening Criteria: Patient within first 12 weeks of warfarin therapy: yes. Today's INR is within goal range. Proceed to maintenance warfarin dosing and follow-up for dosing, but use step-alex extension follow-up schedule: Once INR in range, check weekly for 2 checks. Patient has had a change in amiodarone (started, stopped, dose change) in last 8 weeks: yes. Amiodarone started on 09/22.. Continued with Appendix A for dosing and follow-up. Additional Info: None Previous INR was supratherapeutic. Today???s INR is Therapeutic. Dosing and follow up recommendation: Protocol dosing range for INR 2.0-3.0: No change in weekly dose. Currently bridging? no. Next INR in 4 days. per positive screening criteria. Additional dosing or follow-up information: None. Pt is on injectable anticoagulant: No. Plan used: Protocol. See Anticoagulation Track Calendar for dosing and plan details. Anticoagulation Visit Summary: Patient repeats back dosing instructions, date of next INR, and has no further questions at this time. Total time spent with patient: 15 minutes OID PLATFORM DEVELOPER documented in this encounter Plan of Treatment Upcoming Encounters Date Type Department Care Team (Latest Contact Info) Description 12/21/2023 10:15 AM ANDROID PLATFORM DEVELOPER Clinical Communication Virtual Review in [address] [id number] 12/24/2023 2:00 PM ANDROID PLATFORM DEVELOPER Comprehensive Visit Department of Cardiovascular Medicine in [place], [place] [address] [place] [address] Gudelia Soto M.D. [address] [place] [address] 01/01/2024 3:45 PM ANDROID PLATFORM DEVELOPER Comprehensive Visit Division of Hematology in [place], [place] [address] [place] [phone] Billy Segal APRN, C.N.P., D.N.P. [address] [place] [phone] documented as of this encounter Results * INR Reflex, POCT, Blood (11/02/2023 12:42 PM ANDROID PLATFORM DEVELOPER) INR Reflex, POCT, B 3.6 11/02/2023 12:41 PM ANDROID PLATFORM DEVELOPER [id number] Comment: ----ADDITIONAL INFORMATION---- Standard intensity warfarin therapeutic range: 2.0 to 3.0 ?? High intensity warfarin therapeutic range: 2.5 to 3.5 Blood (Blood, Capillary) 11/02/2023 12:42 PM ANDROID PLATFORM DEVELOPER 11/02/2023 12:41 PM ANDROID PLATFORM DEVELOPER Kylah Crum M.D. LAB POCT ORDERABLES - DEVICE Performing Organization Address City/State/[facility] Co de Phone Number [facility] [address] [place] [address], [facility] FB60 [facility] in [place] [address] [place] [address] documented in this encounter Visit Diagnoses Diagnosis Diabetes Mellitus Type 2 (HCC)- 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 Cardiac Surgery Status Post Bypass Coronary Artery Graft Status Post Prosthesis Aortic Valve Senior [facility] (Current) Anticoagulant Treatment Monitoring For Therapeutic Drug Therapy documented in this encounter Additional Health Concerns Assessment Noted Time PHQ-9 Depression Total Score: 1 09/10/20 23 2:06 PM CDT documented as of this encounter Care Teams Flying Ii Instructor Relationship Specialty Start Date End Date Kylah Crum M.D. [address] [place] [address] [place] [phone] PCP - General Family Medicine 09/28/23 documented as of this encounter
--- OUTSIDE RECORDS SUMMARY | 2023-12-04 12:11 | XMS_ITS | Encounter Summary ---
Author Name Unknown Organization [facility] Address [address] [place] [address] Care Team Providers Care Racker Octave Board Name Role Phone Kylah Crum M.D. Primary Care Provider Encounter Details Date Type Department Care Team (Latest Contact Info) Description 11/01/2023 Clinical Communication Department of Cardiovascular Medicine in [place], [place] [address] [place] [phone] Gudelia Soto M.D. [address] [place] [address] Social History Tobacco Use Types Packs/Day Years [...] (Latest Contact Info) Description 12/21/2023 10:15 AM LUMBER TRIPPER Clinical Communication Virtual Review in [place], [place] [address] [place] [address] 12/24/2023 2:00 PM LUMBER TRIPPER Comprehensive Visit Department of Cardiovascular Medicine in [place], [place] [address] [place] [phone] Gudelia Soto M.D. [address] [place] [phone] 01/01/2024 3:45 PM LUMBER TRIPPER Comprehensive Visit Division of Hematology in [place], [place] [address] [place] [phone] Billy Segal APRN, C.N.P., D.N.P. [address] [place] [address] documented as of this encounter Visit Diagnoses Not on filedocumented in this encounter Additional Health Concerns Assessment Noted Time PHQ-9 Depression Total Score: 1 09/10/20 23 2:06 PM CDT documented as of this encounter Care Teams Racker Octave Board Relationship Specialty Start Date End Date Kylah Crum M.D. [address] [place] [phone] PCP - General Family Medicine 09/28/23 documented as of this encounter
--- OUTSIDE RECORDS SUMMARY | 2023-12-04 12:11 | XMS_ITS | Encounter Summary ---
Author Name Unknown Organization [facility] Address [address] [place] [address] Care Team Providers Care Enrobing Machine Corder Name Role Phone Kylah Crum M.D. Primary Care Provider [phone] Encounter Details Date Type Department Care Team (Latest Contact Info) Description 10/17/2023 11:00 AM LIVESTOCK FARMERS - 10/17/2023 11:59 PM [facility] Encounter Department of Laboratory Medicine in [place], [place] [address] [place] [phone] Kylah Crum M.D. [address] [place] [phone] 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; Cardiac Surgery Status Post; Bypass Coronary Artery Graft Status Post; Prosthesis Aortic Valve; [facility] (Current) Anticoagulant Treatment; Monitoring For Therapeutic Drug Therapy Discharge Disposition: Home or Self Care Social [...] your living situation today? I have a [facility] place to live 08/29/2023 Sex and Gender [...] (six) hours as needed for pain. 0 amiodarone (PACERONE) 200 mg tablet Take 1 tablet (200 mg total) by mouth 2 (two) times a day for 2 days, THEN 1 tablet (200 mg total) daily. 34 tablet 0 09/26/2023 aspirin 81 mg chewable tablet Chew 1 [...] by mouth daily. 0 09/26/2023 furosemide (LASIX) 20 mg tablet Take 1 tablet (20 mg total) by mouth daily for 10 days. 10 tablet 0 10/12/2023 glipiZIDE (GLUCOTROL XL) 2.5 mg 24 hr [...] total) by mouth at bedtime. 0 09/26/2023 pantoprazole (PROTONIX) 40 mg EC tablet Take 1 tablet (40 mg total) by mouth every morning before breakfast. 0 09/26/2023 10/26/2023 warfarin (JANTOVEN) 1 mg tablet Please take 1 tablet (1 mg) by mouth daily on 09/26 and 09/27. Recheck INR on 09/28 with dosing to follow per PCP. 100 tablet 0 09/26/2023 10/31/2023 documented as of this encounter Plan of Treatment Upcoming Encounters Date Type Department Care Team (Latest Contact Info) Description 12/21/2023 10:15 AM LIVESTOCK FARMERS Clinical Communication Virtual Review in [place], [place] [address] [place] [address] 12/24/2023 2:00 PM LIVESTOCK FARMERS Comprehensive Visit Department of Cardiovascular Medicine in [place], [place] [address] [place] [address] Gudelia Soto M.D. [address] [place] [phone] 01/01/2024 3:45 PM LIVESTOCK FARMERS Comprehensive Visit Division of Hematology in [place], [place] [address] [place] [phone] Billy Segal APRN, C.N.P., D.N.P. [address] [place] [phone] documented as of this encounter Procedures Procedure Name Priority Date/Time Associated Diagnosis Comments INR REFLEX, POCT, B Routine 10/17/2023 11:22 AM LIVESTOCK FARMERS 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 Cardiac Surgery Status Post Bypass Coronary Artery Graft Status Post Prosthesis Aortic Valve [facility] (Current) Anticoagulant Treatment Monitoring For Therapeutic Drug Therapy documented in this encounter Results * INR Reflex, POCT, Blood (10/17/2023 11:22 AM LIVESTOCK FARMERS) INR Reflex, POCT, B 4.2 10/17/2023 11:21 AM LIVESTOCK FARMERS [id number] Comment: ----ADDITIONAL INFORMATION---- Standard intensity warfarin therapeutic range: 2.0 to 3.0 ?? High intensity warfarin therapeutic range: 2.5 to 3.5 Blood (Blood, Capillary) 10/17/2023 11:22 AM LIVESTOCK FARMERS 10/17/2023 11:21 AM LIVESTOCK FARMERS Kylah Crum M.D. LAB POCT ORDERABLES - DEVICE [facility] [address] [place] [address], [place] FB60 [facility] in [place] [address] [place] [address] documented in this encounter Visit Diagnoses Diagnosis 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 Cardiac Surgery Status Post Bypass Coronary Artery Graft Status Post Prosthesis Aortic Valve Iron Handler (Current) Anticoagulant Treatment Monitoring For Therapeutic Drug Therapy documented in this encounter Additional Health Concerns Assessment Noted Time PHQ-9 Depression Total Score: 1 09/10/20 2:06 PM CDT documented as of this encounter Care Teams Enrobing Machine Corder Relationship Specialty Start Date End Date Kylah Crum M.D. [address] [place] [phone] PCP - General Family Medicine 09/28/23 documented as of this encounter
--- OUTSIDE RECORDS SUMMARY | 2023-12-04 12:11 | XMS_ITS | Encounter Summary ---
Author Name Unknown Organization [facility] Address [address] [place] [address] Care Team Providers Care Ship'S Pilot Name Role Phone Kylah Crum M.D. Primary Care Provider [phone] Reason for Visit * Outpatient (Routine) - Canceled Specialty Diagnoses / Procedures Referred By Sebas t Referred To Contact Anticoagulation Diagnoses 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 Cardiac Surgery Status Post Bypass Coronary Artery Graft Status Post Prosthesis Aortic Valve Kylah Crum M.D. [address] [place] [address] [facility] Referral ID Status Reason Start Date Expiration Date V isits Requested Visits Authorized [id number] Canceled 10/01/2023 09/30/2026 300 300 Encounter Details Date Type Department Care Team (Latest Contact Info) Description 10/26/2023 11:30 AM CORPORATE BANKING OFFICER Anticoagulation Visit Department of Anticoagulation in [place], [place] [address] [place] [address] Kylah Crum M.D. [address] [place] [address] Diabetes Mellitus Type 2 (HCC) (Primary Dx); 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; Cardiac Surgery Status Post; Bypass Coronary Artery Graft Status Post; Prosthesis Aortic Valve; Testing Engineer (Current) Anticoagulant Treatment; Monitoring For Therapeutic Drug [...] your living situation today? I have a [facility] place to live 08/29/2023 Sex and Gender Information Value Date Recorded Sex Assigned at Male 08/29/2023 11:06 AM CDT Gender Identity Male 08/29/2023 11:06 AM CDT Sexual Orientation Straight 08/29/2023 11 :06 AM CDT documented as of this encounter Patient Instructions * Patient Instructions* Crystal Goodson R.N. - 10/26/2023 11:30 AM CORPORATE BANKING OFFICER Your next INR will be 10/29/2023. You will need to call the Anticoagulation Program for warfarin dosing at the scheduled time for your nurse visit, as indicated on your Patient Appointment Guide (PAG). To reschedule your appointment or for questions about your warfarin, please call Primary Care Anticoagulation Program at [phone] from 7:30 am to 4:30 pm. Sunday-Sunday [...] if you start any herbal or other vdsg-mla-ujyzlrd product (check with your doctor, a nurse, or pharmacist). If you change your diet significantly. If you decide to stop or start using tobacco or alcohol. If you notice unusual bruising or bleeding. If you notice dark, tarry, or bright red stools or blood in your urine. If you have a painful and swollen calf. ORATE BANKING OFFICER documented in this encounter Progress Notes * Crystal Goodson R.N. - 10/26/2023 11:30 AM CST Warfarin Maintenance Nursing Protocol Goal Range 2.0-3.0 (version approved 12/2021) Visit Type: Telephone Primary reason for visit: Routine f/u OR f/u per previous visit recommendations Information provided by:patient INR result: 3.2 Goal range: 2.0-3.0 Inclusion Criteria: All inclusion criteria met. Proceeded to exclusion criteria. Exclusion Criteria: Section 1: No Section 1 exclusion criteria, proceeded to Section 2. Section 2: No Section 2 exclusion criteria, proceeded to screening criteria. Screening Criteria: Patient has had a change in amiodarone (started, stopped, dose change) in last 8 weeks: yes. Amiodarone dose changed from 400 mg to 200 mg on 09/30/2023.. Continued with Appendix A for dosing and follow-up. Additional Info: Appetite continues to be at 50%. Previous INR was supratherapeutic. Today???s INR is Supratherapeutic, Causes: See above positive screening criteria/additional information sections.. Dosing and follow up recommendation: Protocol dosing range for INR 3.1-3.2: No change in weekly dose per protocol. Next INR in 5 days. per positive screening criteria. Additional dosing or follow-up information: None. Pt is on injectable anticoagulant: No. Plan used: Protocol. See Anticoagulation Track Calendar for dosing and plan details. Anticoagulation Visit Summary: Patient repeats back dosing instructions, date of next INR, and has no further questions at this time. AVS sent via patient portal. Total time spent with patient: N/A ORATE BANKING OFFICER documented in this encounter Plan of Treatment Upcoming Encounters Date Type Department Care Team (Latest Contact Info) Description 12/21/2023 10:15 AM CORPORATE BANKING OFFICER Clinical Communication Virtual Review in [address] [address] 12/24/2023 2:00 PM CORPORATE BANKING OFFICER Comprehensive Visit Department of Cardiovascular Medicine in [place], [place] [address] [place] [phone] Gudelia Soto M.D. [address] [place] [phone] 01/01/2024 3:45 PM CORPORATE BANKING OFFICER Comprehensive Visit Division of Hematology in [place], [place] [address] [place] [phone] Billy Segal APRN, C.N.P., D.N.P. [address] [place] [phone] documented as of this encounter Results * INR Reflex, POCT, Blood (10/29/2023 12:50 PM CORPORATE BANKING OFFICER) INR Reflex, POCT, B 2.7 10/29/2023 12:49 PM CORPORATE BANKING OFFICER [id number] Comment: ----ADDITIONAL INFORMATION---- Standard intensity warfarin therapeutic range: 2.0 to 3.0 ?? High intensity warfarin therapeutic range: 2.5 to 3.5 Blood (Blood, Capillary) 10/29/2023 12:50 PM CORPORATE BANKING OFFICER 10/29/2023 12:49 PM CORPORATE BANKING OFFICER Kylah Crum M.D. LAB POCT ORDERABLES - DEVICE Performing Organization Address City/State/[facility] Co de Phone Number [facility] [address] [place] [address], [facility] FB60 [facility] in [place] [address] [place] [address] documented in this encounter Visit Diagnoses Diagnosis Diabetes Mellitus Type 2 (HCC)- 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 Cardiac Surgery Status Post Bypass Coronary Artery Graft Status Post Prosthesis Aortic Valve Testing Engineer (Current) Anticoagulant Treatment Monitoring For Therapeutic Drug Therapy documented in this encounter Additional Health Concerns Assessment Noted Time PHQ-9 Depression Total Score: 1 09/10/20 23 2:06 PM CDT documented as of this encounter Care Teams Ship'S Pilot Relationship Specialty Start Date End Date Kylah Crum M.D. [address] [place] [address] [place] [phone] PCP - General Family Medicine 09/28/23 documented as of this encounter
--- OUTSIDE RECORDS SUMMARY | 2023-12-04 12:11 | XMS_ITS | Encounter Summary ---
Author Name Unknown Organization [facility] Address [address] [place] [address] Care Team Providers Care Substation Wireman Name Role Phone Kylah Crum M.D. Primary Care Provider Encounter Details Date Type Department Care Team (Latest Contact Info) Description 10/31/2023 Clinical Communication Department of Anticoagulation in [place], [place] [address] [place] [address] Roberto Kwok, M.P.H., R.N. Social History Tobacco Use Types Packs/Day Years [...] encounter Miscellaneous Notes * Telephone Encounter - Kelsey Renee, Pharm.D., R.Ph. - 10/31/2023 1:01 PM DEVELOPMENT LEAD The patient needs an Rx sent. It appears he is done with amiodarone. LOPMENT LEAD documented in this encounter Plan of Treatment Upcoming Encounters Date Type Department Care Team (Latest Contact Info) Description 12/21/2023 10:15 AM DEVELOPMENT LEAD Clinical Communication Virtual Review in [place], [place] [address] [place] [address] 12/24/2023 2:00 PM DEVELOPMENT LEAD Comprehensive Visit Department of Cardiovascular Medicine in [place], [place] [address] [place] [address] Gudelia Soto M.D. [address] [place] [address] 01/01/2024 3:45 PM DEVELOPMENT LEAD Comprehensive Visit Division of Hematology in [place], [place] [address] [place] [address] Billy Segal APRN, C.N.P., D.N.P. [address] [place] [phone] documented as of this encounter Visit Diagnoses Diagnosis Diabetes Mellitus Type 2 (HCC)- 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 Prosthesis Aortic Valve Cardiac Surgery Status Post Bypass Coronary Artery Graft Status Post Halfway (Current) Anticoagulant Treatment Monitoring For Therapeutic Drug Therapy documented in this encounter Additional Health Concerns Assessment Noted Time PHQ-9 Depression Total Score: 1 09/10/20 23 2:06 PM CDT documented as of this encounter Care Teams Substation Wireman Relationship Specialty Start Date End Date Kylah Crum M.D. NPVeda: [phone] [address] [place] [phone] PCP - General Family Medicine 09/28/23 documented as of this encounter
--- OUTSIDE RECORDS SUMMARY | 2023-12-04 12:11 | XMS_ITS | Encounter Summary ---
Author Name Unknown Organization [facility] Address [address] [place] [address] Care Team Providers Care Sleeve Bottom Feller Name Role Phone Kylah Crum M.D. Primary Care Provider [phone] Encounter Details Date Type Department Care Team (Latest Contact Info) Description 10/29/2023 12:42 PM DIGITAL MANAGER - 10/29/2023 11:59 PM DIGITAL MANAGER Hospital Encounter Department of Laboratory Medicine in [place], [place] [address] [place] [phone] Kylah Crum M.D. 300 [place] [phone] 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; Cardiac Surgery Status Post; Bypass Coronary Artery Graft Status Post; Prosthesis Aortic Valve; Diabetes Mellitus Type 2 (HCC); Pit Clerk (Current) Anticoagulant Treatment; Monitoring For Therapeutic Drug [...] your living situation today? I have a [facility] place to live 08/29/2023 Sex and [...] mg total) by mouth daily. 0 09/26/2023 glipiZIDE (GLUCOTROL XL) 2.5 mg 24 hr [...] bedtime. 0 09/26/2023 warfarin (JANTOVEN) 1 mg tablet Please take 1 tablet (1 mg) by mouth daily on 09/26 and 09/27. Recheck INR on 09/28 with dosing to follow per PCP. 100 tablet 0 09/26/2023 10/31/2023 documented as of this encounter Plan of Treatment Upcoming Encounters Date Type Department Care Team (Latest Contact Info) Description 12/21/2023 10:15 AM DIGITAL MANAGER Clinical Communication Virtual Review in [place], [place] 200 [place] [address] 12/24/2023 2:00 PM DIGITAL MANAGER Comprehensive Visit Department of Cardiovascular Medicine in [place], [place] [address] [place] [phone] Gudelia Soto M.D. [address] [place] [phone] 01/01/2024 3:45 PM DIGITAL MANAGER Comprehensive Visit Division of Hematology in [address] [phone] Billy Segal APRN, C.N.P., D.N.P. [address] [place] [address] documented as of this encounter Procedures Procedure Name Priority Date/Time Associated Diagnosis Comments INR REFLEX, POCT, B Routine 10/29/2023 12:50 PM DIGITAL MANAGER 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 Cardiac Surgery Status Post Bypass Coronary Artery Graft Status Post Prosthesis Aortic Valve Diabetes Mellitus Type 2 (HCC) Assisted (Current) Anticoagulant Treatment Monitoring For Therapeutic Drug Therapy documented in this encounter Results * INR Reflex, POCT, Blood (10/29/2023 12:50 PM DIGITAL MANAGER) INR Reflex, POCT, B 2.7 10/29/2023 12:49 PM DIGITAL MANAGER [id number] Comment: ----ADDITIONAL INFORMATION---- Standard intensity warfarin therapeutic range: 2.0 to 3.0 ?? High intensity warfarin therapeutic range: 2.5 to 3.5 Blood (Blood, Capillary) 10/29/2023 12:50 PM DIGITAL MANAGER 10/29/2023 12:49 PM DIGITAL MANAGER Kylah Crum M.D. LAB POCT ORDERABLES - DEVICE [facility] [address] [place] [address], [facility] FB60 [facility] in [place] [address] [place] [address] documented in this encounter Visit Diagnoses Diagnosis 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 Cardiac Surgery Status Post Bypass Coronary Artery Graft Status Post Prosthesis Aortic Valve Diabetes Mellitus Type 2 (HCC) Assisted (Current) Anticoagulant Treatment Monitoring For Therapeutic Drug Therapy documented in this encounter Additional Health Concerns Assessment Noted Time PHQ-9 Depression Total Score: 1 09/10/20 23 2:06 PM CDT documented as of this encounter Care Teams Sleeve Bottom Feller Relationship Specialty Start Date End Date Kylah Crum M.D. [address] [place] [phone] PCP - General Family Medicine 09/28/23 documented as of this encounter
--- OUTSIDE RECORDS SUMMARY | 2023-12-04 12:11 | XMS_ITS | Encounter Summary ---
Author Name Unknown Organization [facility] Address [address] [place] [address] Care Team Providers Care Conceptor Name Role Phone Kylah Crum M.D. Primary Care Provider Reason for Visit * Appointment Request (Routine) - Closed Specialty Diagnoses / Procedures Referred By Sebas gimenez Referred To Contact Nephrology and Hypertension Referral ID Status Reason Start Date Expiration Date Visits Re quested Visits Authorized [id number] Closed 10/19/2023 10/18/2024 1 1 Encounter Details Date Type Department Care Team (Latest Contact Info) Description 10/31/2023 8:00 AM PRIVATE EQUITY ANALYST External Outreach Division of Nephrology and Hypertension in [place], [place] [address] [place] [address] Mare Arauz M.D., Ph.D. [address] [place] [address] Chronic Kidney Disease (CKD), Stage 3b Glomerular Filtration Rate (GFR) 30 To 44 (HCC) (Primary Dx); Hypertension Essential Primary Social History Tobacco Use Types Packs/Day Years [...] your living situation today? I have a [facility] place to live 08/29/2023 Sex and Gender Information Value Date Recorded Sex Assigned at Male 08/29/2023 11:06 AM CDT Gender Identity Male 08/29/2023 11:06 AM CDT Sexual Orientation Straight 08/29/2023 11 :06 AM CDT documented as of this encounter Consult Notes * Mare Arauz M.D., Ph.D. - 10/31/2023 8:00 AM CST Referring Provider: Rowena Reddy M.D. SUBJECTIVE REASON FOR CONSULT CKD management. HISTORY OF PRESENT ILLNESS Mr. Harris is a 73-year-old gentleman with a past medical history significant for chronic kidney disease, severe aortic stenosis, status post CABG, MAZE procedure, left atrial appendage ligation, mechanical aortic valve replacement on September 19, 2023. He has paroxysmal Afib on warfarin and amiodarone. He has a history of hypertension and type 2 diabetes. His diabetes was diagnosed in 2011. It is well controlled. He used to be on metformin, but after his hospitalization this was discontinued and now he is on glipizide. No insulin therapy. The patient has a history of chronic kidney disease stage 3, with a baseline creatinine that has been ranging between 1.8 to 1.9 prior to his current hospitalization. He developed an MANJEET with a creatinine that peaked to 2.4 and it has been trending down. After his hospitalization his creatinine value was 2.1. It has not trended down to his baseline yet, according to most recent labs a month ago. He had a urinalysis done prior to his hospitalization in August of 2023, that was negative for proteinuria, hematuria. He is on a low dose of lisinopril 2.5 mg daily. The patient mentions lower extremity edema that did not improve after a trial of Lasix 20 mg daily.He also has shortness of breath on exertion. His appetite is decreased. He endorses extreme fatigueand lack of stamina. Past Medical History: Diagnosis Date Acidosis Lactic 09/20/2023 Acquired Aortic Valve Disorder 09/19/2023 Aphasia 04/11/2019 Atrial Fibrillation Unspecified (HCC) Basal Cell Carcinoma Skin Other Parts Face 08/19/2023 Diabetes Mellitus Type 2 (HCC) Hyperlipidemia Hypertension NOS Murmur Heart Pain Shoulder Right 04/11/2019 Squamous Cell Carcinoma Skin Other Parts Face 08/19/2023 Stenosis Aortic Valve Acquired Stroke (HCC) Past Surgical History: Procedure Laterality Date CABG X 1 - VEIN N/A 09/19/2023 Procedure: CORONARY ARTERY BYPASS GRAFT X1, VEIN.; Surgeon: Sarah Miller M.D., M.P.H.; Location:[facility] OR CATH ANGIOGRAM N/A 08/21/2023 Procedure: CORONARY ANGIOGRAPHY; Surgeon: Ezequiel Jack M.D.; Location: [facility] CCL ECHOCARDIOGRAM TRANSESOPHAGEAL N/A 09/19/2023 Procedure: ECHOCARDIOGRAM TRANSESOPHAGEAL; Surgeon: Arghami, Arman, M.D., M.P.H.; Location: [facility] OR ISOLATION PULMONARY VEIN N/A 09/19/2023 Procedure: ISOLATION PULMONARY VEIN.; Surgeon: Sarah Miller M.D., M.P.H.; Location: [facility] OR LIGATION LEFT ATRIAL APPENDAGE N/A 09/19/2023 Procedure: LIGATION LEFT ATRIAL APPENDAGE.; Surgeon: Sarah Miller M.D., M.P.H.; Location: [facility] OR REPLACEMENT AORTIC VALVE N/A 09/19/2023 Procedure: REPLACEMENT AORTIC VALVE, POSSIBLE AORTIC ROOT ENLARGEMENT. (On-X Conform 23mm Valve); Surgeon: Sarah Miller M.D., M.P.H.; Location: [facility] OR No Known Allergies Social History Tobacco Use Smoking status: Former Types: Cigarettes Smokeless tobacco: Never Tobacco comments: Smoked recreationally over 40 years ago - a few cigarettes once in a while. Substance Use Topics Alcohol use: Never Family History Problem Relation Age of Onset Lymphoma Mother Heart disease Father No Known Problems Sister Alzheimer's disease Brother No Known Problems Brother Diabetes Maternal Grandfather Heart attack Maternal Grandfather age 60s Prostate cancer Paternal Grandfather Bicuspid aortic valve Daughter Bicuspid aortic valve Son AVR - Aortic valve replacement Son REVIEW OF SYSTEMS All other systems were reviewed and are negative, rest as per HPI. OBJECTIVE VITAL SIGNS Blood pressure 130/62, pulse 115, respiratory rate 16. BMI 30.9. Weight 92 kg (2 kg above his priorweight on October 18). PHYSICAL EXAMINATION General: No acute distress. Head: Atraumatic. Heart: Irregularly irregular rhythm, mechanical aortic valve click. No murmurs. Lungs: Bibasilar, mild crackles. Abdomen: Soft, nontender. Extremities: Lower extremity edema 3+ up to the knees. DIAGNOSTICS Labs: I have reviewed available labs in detail with patient. ASSESSMENT / PLAN #1 CKD stage 3b to 4 in the setting of cardiorenal physiology #2 Volume overload #3 Hypertension #4 Anemia of chronic disease Patient is referred to Nephrology for evaluation of his CKD. We have discussed that likely his CKD is multifactorial in the setting of type 2 diabetes, hypertension, prior aortic stenosis status postAVR. His volume overload may be contributing to his current kidney function. There were no recent labs. I will order laboratory workup for today. I will order a chest x-ray to help with his management. We will do a trial of furosemide 40 mg daily for 10 days. Patient will be monitoring his blood pressure and daily weight at home. For his anemia, I will order iron studies to evaluate if his iron supplementation needs to be adjusted. He is currently taking 325 mg of ferrous sulfate per day. I will order a kidney ultrasound with Doppler to rule out any masses and rule out any renal artery stenosis. I will see him back in 4 weeks for followup regarding his antihypertensive management. Kay Seymour M.D., Ph.D. CT CT Job ID: [id number] ATE EQUITY ANALYST documented in this encounter Plan of Treatment Upcoming Encounters Date Type Department Care Team (Latest Contact Info) Description 12/21/2023 10:15 AM PRIVATE EQUITY ANALYST Clinical Communication Virtual Review in [address] [address] 12/24/2023 2:00 PM PRIVATE EQUITY ANALYST Comprehensive Visit Department of Cardiovascular Medicine in [address] [phone] Gudelia Soto M.D. [address] [place] [phone] 01/01/2024 3:45 PM PRIVATE EQUITY ANALYST Comprehensive Visit Division of Hematology in [address] [phone] Billy Segal APRN, C.N.P., D.N.P. [address] [place] [phone] documented as of this encounter Visit Diagnoses Diagnosis Chronic Kidney Disease (CKD), Stage 3b Glomerular Filtration Rate (GFR) 30 To 44 (HCC)- Primary Hypertension Essential Primary documented in this encounter Additional Health Concerns Assessment Noted Time PHQ-9 Depression Total Score: 1 09/10/20 23 2:06 PM CDT documented as of this encounter Care Teams Conceptor Relationship Specialty Start Date End Date Kylah Crum M.D. NPVeda: [phone] [address] [place] [address] [place] [phone] PCP - General Family Medicine 09/28/23 documented as of this encounter
--- OUTSIDE RECORDS SUMMARY | 2023-12-04 12:11 | XMS_ITS | Encounter Summary ---
Author Name Unknown Organization [facility] Address [address] [place] [address] Care Team Providers Care Mirror Machine Feeder Name Role Phone Kylah Crum M.D. Primary Care Provider Reason for Visit * Reason Onset Date Comments Med Question 11/01/2023 Refills or stopp ing medications Encounter Details Date Type Department Care Team (Latest Contact Info) Description 11/01/2023 Clinical Communication Department of Cardiovascular Surgery in [place], [place] [address] [place] [phone] Sarah Miller M.D., M.P.H. [address] [place] [phone] Med Question (Refills or stopping medications) Social History Tobacco Use Types Packs/Day Years [...] your living situation today? I have a [facility] place to live 08/29/2023 Sex and Gender Information Value Date Recorded Sex Assigned at Male 08/29/2023 11:06 AM CDT Gender Identity Male 08/29/2023 11:06 AM CDT Sexual Orientation Straight 08/29/2023 11 :06 AM CDT documented as of this encounter Miscellaneous Notes * Telephone Encounter - Karli Oro - 11/01/2023 1:07 PM CST CHIEF COMPLAINT / REASON FOR CALL Med Question (Refills or stopping medications) Name of caller/relationship to the patient:patient and Patient expects communication via portal: No Phone number: [phone] Surgical Date: 09/19/2023 Surgeon: Angela Request topic and what needs to be addressed? Medication Management Questions to be answered: Wonder if he should continue or stop medications he left the hospital with? Additional comments: Patient has seen his local PCP but was not aware that he would need a follow up visit with a flatwork ironer, so one hasn't been schedule I will connect them to the CVD area to work on getting that scheduled. Routing Patient Discharged within last week? No Patient seen by outpatient provider since dismissal? Yes: Provider seen: Dr. Leslie and Appt Date 10/03/2023 Reminder: send to inpatient group if patient DC'd within past week, and has not been seen by outpatient provider Karli ITY TENDER CARDING documented in this encounter Plan of Treatment Upcoming Encounters Date Type Department Care Team (Latest Contact Info) Description 12/21/2023 10:15 AM UTILITY TENDER CARDING Clinical Communication Virtual Review in [place], [place] [address] [place] [address] 12/24/2023 2:00 PM UTILITY TENDER CARDING Comprehensive Visit Department of Cardiovascular Medicine in [place], [place] [address] [place] [phone] Gudelia Soto M.D. [address] [place] [phone] 01/01/2024 3:45 PM UTILITY TENDER CARDING Comprehensive Visit Division of Hematology in [place], [place] [address] [place] [phone] Billy Segal APRN, C.N.P., D.N.P. [address] [place] [phone] documented as of this encounter Visit Diagnoses Not on filedocumented in this encounter Additional Health Concerns Assessment Noted Time PHQ-9 Depression Total Score: 1 09/10/20 2:06 PM CDT documented as of this encounter Care Teams Mirror Machine Feeder Relationship Specialty Start Date End Date Kylah Crum M.D. [address] [place] [phone] PCP - General Family Medicine 09/28/23 documented as of this encounter
--- OUTSIDE RECORDS SUMMARY | 2023-12-04 12:11 | XMS_ITS | Encounter Summary ---
Author Name Unknown Organization [facility] Address [address] [place] [address] Care Team Providers Care Materials And Corrosion Engineer Name Role Phone Kylah Crum M.D. Primary Care Provider [phone] Reason for Visit * Outpatient (Routine) - Canceled Specialty Diagnoses / Procedures Referred By Sebas t Referred To Contact Anticoagulation Diagnoses 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 Cardiac Surgery Status Post Bypass Coronary Artery Graft Status Post Prosthesis Aortic Valve Kylah Crum M.D. [address] [place] [address] [facility] Referral ID Status Reason Start Date Expiration Date V isits Requested Visits Authorized [id number] Canceled 10/01/2023 09/30/2026 300 300 Encounter Details Date Type Department Care Team (Latest Contact Info) Description 11/02/2023 3:00 PM CONSTRUCTION ELECTRICIAN Anticoagulation Visit Department of Anticoagulation in [place], [place] [address] [place] [address] Kylah Crum M.D. [address] [place] [address] Diabetes Mellitus Type 2 (HCC) [...] * Patient Instructions* Keli Anguiano R.N. - 11/02/2023 3:00 PM CONSTRUCTION ELECTRICIAN Your next INR will be SundayNovember 09. You will need to call the Anticoagulation Program for warfarin dosing at the scheduled time for your nurse visit, as indicated on your Patient Appointment Guide (PAG). To reschedule your appointment or for questions about your warfarin, please call Primary Care Anticoagulation Program at [phone] from 7:30 am to 4:30 pm. Sunday-Sunday [...] if you start any herbal or other nojw-uom-siynkak product (check with your doctor, a nurse, or pharmacist). If you change your diet significantly. If you decide to stop or start using tobacco or alcohol. If you notice unusual bruising or bleeding. If you notice dark, tarry, or bright red stools or blood in your urine. If you have a painful and swollen calf. TRUCTION ELECTRICIAN documented in this encounter Progress Notes * Keli Anguiano R.N. - 11/02/2023 3:00 PM CST Warfarin Maintenance Nursing Protocol Goal Range 2.0-3.0 (version approved 12/2021) Visit Type: Telephone Primary reason for visit: Routine f/u OR f/u per previous visit recommendations Information provided by:patient INR result: 3.6 Goal range: 2.0-3.0 Inclusion Criteria: All inclusion criteria met. Proceeded to exclusion criteria. Exclusion Criteria: Section 1: No Section 1 exclusion criteria, proceeded to Section 2. Section 2: No Section 2 exclusion criteria, proceeded to screening criteria. Screening Criteria: Patient within first 12 weeks of warfarin therapy: yes. Today's INR is outside goal range. Proceed to maintenance warfarin dosing and follow-up. Patient has had a change in amiodarone (started, stopped, dose change) in last 8 weeks: yes. Amiodarone stopped on 11/01.. Continued with Appendix A for dosing and follow-up. Additional Info: None Previous INR was therapeutic. Today???s INR is Supratherapeutic, Causes: Medication change: Amiodarone . Dosing and follow up recommendation: Protocol dosing range for INR 3.6-4: Decrease average daily dose by 50% for 1 dose, then resume current dose per protocol. Next INR in 7 days. per positive screening criteria. Additional dosing or follow-up information: Provider consulted: [facility] Pt is on injectable anticoagulant: No. Plan used: Consult. See Anticoagulation Track Calendar for dosing and plan details. Anticoagulation Visit Summary: Patient repeats back dosing instructions, date of next INR, and has no further questions at this time. Total time spent with patient: 15 minutes TRUCTION ELECTRICIAN documented in this encounter Plan of Treatment Upcoming Encounters Date Type Department Care Team (Latest Contact Info) Description 12/21/2023 10:15 AM CONSTRUCTION ELECTRICIAN Clinical Communication Virtual Review in [address] [phone] 12/24/2023 2:00 PM CONSTRUCTION ELECTRICIAN Comprehensive Visit Department of Cardiovascular Medicine in [place], [place] [address] [place] [address] Gudelia Soto M.D. [address] [place] [address] 01/01/2024 3:45 PM CONSTRUCTION ELECTRICIAN Comprehensive Visit Division of Hematology in [place], [place] [address] [place] [phone] Billy Segal APRN, C.N.P., D.N.P. [address] [place] [phone] documented as of this encounter Visit Diagnoses Diagnosis Diabetes Mellitus Type 2 (HCC)- 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 Cardiac Surgery Status Post Bypass Coronary Artery Graft Status Post Prosthesis Aortic Valve Nut Sheller (Current) Anticoagulant Treatment Monitoring For Therapeutic Drug Therapy documented in this encounter Additional Health Concerns Assessment Noted Time PHQ-9 Depression Total Score: 1 09/10/20 2:06 PM CDT documented as of this encounter Care Teams Materials And Corrosion Engineer Relationship Specialty Start Date End Date Kylah Crum M.D. [address] [place] [phone] PCP - General Family Medicine 09/28/23 documented as of this encounter
--- OUTSIDE RECORDS SUMMARY | 2023-12-04 12:11 | XMS_ITS | Encounter Summary ---
Author Name Unknown Organization [facility] Address [address] [place] [address] Care Team Providers Care Motor Builder Winder Name Role Phone Kylah Crum M.D. Primary Care Provider [phone] Encounter Details Date Type Department Care Team (Latest Contact Info) Description 10/22/2023 11:20 AM SPECIAL CLIENT BUS DRIVER - 10/22/2023 11:59 PM [facility] Hospital Encounter Department of Laboratory Medicine in [place], [place] [address] [place] [phone] Kylah Crum M.D. [address] [place] [phone] 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; Cardiac Surgery Status Post; Bypass Coronary Artery Graft Status Post; Prosthesis Aortic Valve; Mcfp (Current) Anticoagulant Treatment; Monitoring For Therapeutic Drug [...] your living situation today? I have a [facility] place to live 08/29/2023 Sex and [...] (Latest Contact Info) Description 12/21/2023 10:15 AM SPECIAL CLIENT BUS DRIVER Clinical Communication Virtual Review in [place], [place] 200 [place] [address] 12/24/2023 2:00 PM SPECIAL CLIENT BUS DRIVER Comprehensive Visit Department of Cardiovascular Medicine in [place], [place] [address] [place] [phone] Gudelia Soto M.D. [address] [place] [phone] 01/01/2024 3:45 PM SPECIAL CLIENT BUS DRIVER Comprehensive Visit Division of Hematology in [place], [place] [address] [place] [phone] Billy Segal APRN, C.N.P., D.N.P. [address] [place] [phone] documented as of this encounter Procedures Procedure Name Priority Date/Time Associated Diagnosis Comments INR REFLEX, POCT, B Routine 10/22/2023 11:32 AM SPECIAL CLIENT BUS DRIVER 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 Cardiac Surgery Status Post Bypass Coronary Artery Graft Status Post Prosthesis Aortic Valve Head Of Training And Development (Current) Anticoagulant Treatment Monitoring For Therapeutic Drug Therapy documented in this encounter Results * INR Reflex, POCT, Blood (10/22/2023 11:32 AM SPECIAL CLIENT BUS DRIVER) INR Reflex, POCT, B 3.6 10/22/2023 11:32 AM SPECIAL CLIENT BUS DRIVER [id number] Comment: ----ADDITIONAL INFORMATION---- Standard intensity warfarin therapeutic range: 2.0 to 3.0 ?? High intensity warfarin therapeutic range: 2.5 to 3.5 Blood (Blood, Capillary) 10/22/2023 11:32 AM SPECIAL CLIENT BUS DRIVER 10/22/2023 11:32 AM SPECIAL CLIENT BUS DRIVER Kylah Crum M.D. LAB POCT ORDERABLES - [facility]ICE [facility] [address] [place] [address], [facility] FB60 [facility] in [place] [address] [place] [address] documented in this encounter Visit Diagnoses Diagnosis 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 Cardiac Surgery Status Post Bypass Coronary Artery Graft Status Post Prosthesis Aortic Valve Head Of Training And Development (Current) Anticoagulant Treatment Monitoring For Therapeutic Drug Therapy documented in this encounter Additional Health Concerns Assessment Noted Time PHQ-9 Depression Total Score: 1 09/10/20 23 2:06 PM CDT documented as of this encounter Care Teams Motor Builder Winder Relationship Specialty Start Date End Date Kylah Crum M.D. [address] [place] [address] [place] [phone] PCP - General Family Medicine 09/28/23 documented as of this encounter
--- OUTSIDE RECORDS SUMMARY | 2023-12-04 12:11 | XMS_ITS | Encounter Summary ---
Author Name Unknown Organization [facility] Address [address] [place] [address] Care Team Providers Care Forest Landscape Ecology Professor Name Role Phone Kylah Crum M.D. Primary Care Provider Encounter Details Date Type Department Care Team (Latest Contact Info) Description 10/26/2023 10:50 AM PRINTING MACHINE OPERATOR - 10/26/2023 11:59 PM [facility] Hospital Encounter Department of Laboratory Medicine in [place], [place] [address] [place] [phone] Kylah Crum M.D. 300 [place] [phone] 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; Cardiac Surgery Status Post; Bypass Coronary Artery Graft Status Post; Prosthesis Aortic Valve; Nursing Home (Current) Anticoagulant Treatment; Monitoring For Therapeutic Drug [...] your living situation today? I have a [facility] place to live 08/29/2023 Sex and [...] (Latest Contact Info) Description 12/21/2023 10:15 AM PRINTING MACHINE OPERATOR Clinical Communication Virtual Review in [place], [place] 200 [place] [address] 12/24/2023 2:00 PM PRINTING MACHINE OPERATOR Comprehensive Visit Department of Cardiovascular Medicine in [place], [place] [address] [place] [phone] Gudelia Soto M.D. [address] [place] [phone] 01/01/2024 3:45 PM PRINTING MACHINE OPERATOR Comprehensive Visit Division of Hematology in [place], [place] [address] [place] [address] Billy Segal APRN, C.N.P., D.N.P. [address] [place] [address] documented as of this encounter Procedures Procedure Name Priority Date/Time Associated Diagnosis Comments INR REFLEX, POCT, B Routine 10/26/2023 11:36 AM PRINTING MACHINE OPERATOR 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 Cardiac Surgery Status Post Bypass Coronary Artery Graft Status Post Prosthesis Aortic Valve Nursing Home (Current) Anticoagulant Treatment Monitoring For Therapeutic Drug Therapy documented in this encounter Results * INR Reflex, POCT, Blood (10/26/2023 11:36 AM PRINTING MACHINE OPERATOR) INR Reflex, POCT, B 3.2 10/26/2023 11:35 AM PRINTING MACHINE OPERATOR [id number] Comment: ----ADDITIONAL INFORMATION---- Standard intensity warfarin therapeutic range: 2.0 to 3.0 ?? High intensity warfarin therapeutic range: 2.5 to 3.5 Blood (Blood, Capillary) 10/26/2023 11:36 AM PRINTING MACHINE OPERATOR 10/26/2023 11:35 AM PRINTING MACHINE OPERATOR Kylah Crum M.D. LAB POCT ORDERABLES - DEVICE [facility] [address] [place] [address], [facility] FB60 [facility] in [place] [address] [place] [address] documented in this encounter Visit Diagnoses Diagnosis 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 Cardiac Surgery Status Post Bypass Coronary Artery Graft Status Post Prosthesis Aortic Valve Nursing Home (Current) Anticoagulant Treatment Monitoring For Therapeutic Drug Therapy documented in this encounter Additional Health Concerns Assessment Noted Time PHQ-9 Depression Total Score: 1 09/10/20 23 2:06 PM CDT documented as of this encounter Care Teams Forest Landscape Ecology Professor Relationship Specialty Start Date End Date Kylah Crum M.D. [address] [place] [phone] PCP - General Family Medicine 09/28/23 documented as of this encounter
--- OUTSIDE RECORDS SUMMARY | 2023-12-04 12:11 | XMS_ITS | Encounter Summary ---
Author Name Unknown Organization [facility] Address [address] [place] [address] Care Team Providers Care Career Technical Supervisor Name Role Phone Kylah Crum M.D. Primary Care Provider [phone] Reason for Visit * Outpatient (Routine) - Canceled Specialty Diagnoses / Procedures Referred By Sebas t Referred To Contact Anticoagulation Diagnoses 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 Cardiac Surgery Status Post Bypass Coronary Artery Graft Status Post Prosthesis Aortic Valve Kylah Crum M.D. 300 [place] [phone] [facility] Referral ID Status Reason Start Date Expiration Date V isits Requested Visits Authorized [id number] Canceled 10/01/2023 09/30/2026 300 300 Encounter Details Date Type Department Care Team (Latest Contact Info) Description 10/22/2023 2:00 PM ADJUNCT PHLEBOTOMY INSTRUCTOR Anticoagulation Visit Department of Anticoagulation in [place], [place] [address] [place] [address] Kylah Crum M.D. [address] [place] [address] Prosthesis Aortic Valve (Primary Dx); 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; Cardiac Surgery Status Post; Bypass Coronary Artery Graft Status Post; Snf (Current) Anticoagulant Treatment; Monitoring For Therapeutic Drug Therapy; Diabetes Mellitus Type 2 (HCC) Social History Tobacco Use Types Packs/Day Years [...] your living situation today? I have a [facility] place to live 08/29/2023 Sex and Gender Information Value Date Recorded Sex Assigned at Male 08/29/2023 11:06 AM CDT Gender Identity Male 08/29/2023 11:06 AM CDT Sexual Orientation Straight 08/29/2023 11 :06 AM CDT documented as of this encounter Patient Instructions * Patient Instructions* Treva Chavarria R.N. - 10/22/2023 2:00 PM ADJUNCT PHLEBOTOMY INSTRUCTOR Your next INR will be Sunday: 10-26-2023. You will need to call the Anticoagulation Program for warfarin dosing at the scheduled time for your nurse visit, as indicated on your Patient Appointment Guide (PAG). To reschedule your appointment or for questions about your warfarin, please call Primary Care Anticoagulation Program at [phone] from 7:30 am to 4:30 pm. Sunday-Sunday [...] if you start any herbal or other iisa-mnd-imvtjcw product (check with your doctor, a nurse, or pharmacist). If you change your diet significantly. If you decide to stop or start using tobacco or alcohol. If you notice unusual bruising or bleeding. If you notice dark, tarry, or bright red stools or blood in your urine. If you have a painful and swollen calf. NCT PHLEBOTOMY INSTRUCTOR documented in this encounter Progress Notes * Treva Chavarria R.N. - 10/22/2023 2:00 PM CST Warfarin Maintenance Nursing Protocol Goal [...] 8 weeks: yes. Amiodarone dose changed from 200 mg twice daily to 200 mg daily on 09-30-2023.. Continued with Appendix A for dosing and follow-up. Additional Info: David reports he continues to have a poor appetite. Previous INR was supratherapeutic. Today???s INR is Supratherapeutic, Causes: See above positive screening criteria/additional information sections. Dosing and follow up recommendation: Protocol does not apply based on positive screening criteria indicated above stating consult required. Consulted Anticoagulation [facility] for plan. Currently bridging: no. INR is therapeutic/supratherapeutic. Additional dosing or follow-up information: Next INR in 4 days per consult with Anticoagulation RP. Pt is on injectable anticoagulant: No. Plan used: Consult. See Anticoagulation Track Calendar for dosing and plan details. Anticoagulation Visit Summary: Patient repeats back dosing instructions, date of next INR, and has no further questions at this time. Total time spent with patient: N/A NCT PHLEBOTOMY INSTRUCTOR documented in this encounter Plan of Treatment Upcoming Encounters Date Type Department Care Team (Latest Contact Info) Description 12/21/2023 10:15 AM ADJUNCT PHLEBOTOMY INSTRUCTOR Clinical Communication Virtual Review in [place], [place] [address] [place] [address] 12/24/2023 2:00 PM ADJUNCT PHLEBOTOMY INSTRUCTOR Comprehensive Visit Department of Cardiovascular Medicine in [place], [place] [address] [place] [phone] Gudelia Soto M.D. [address] [place] [phone] 01/01/2024 3:45 PM ADJUNCT PHLEBOTOMY INSTRUCTOR Comprehensive Visit Division of Hematology in [place], [place] [address] [place] [phone] Billy Segal APRN, C.N.P., D.N.P. [address] [place] [phone] documented as of this encounter Results * INR Reflex, POCT, Blood (10/26/2023 11:36 AM ADJUNCT PHLEBOTOMY INSTRUCTOR) INR Reflex, POCT, B 3.2 10/26/2023 11:35 AM ADJUNCT PHLEBOTOMY INSTRUCTOR [id number] Comment: ----ADDITIONAL INFORMATION---- Standard intensity warfarin therapeutic range: 2.0 to 3.0 ?? High intensity warfarin therapeutic range: 2.5 to 3.5 Blood (Blood, Capillary) 10/26/2023 11:36 AM ADJUNCT PHLEBOTOMY INSTRUCTOR 10/26/2023 11:35 AM ADJUNCT PHLEBOTOMY INSTRUCTOR Kylah Crum M.D. LAB POCT ORDERABLES - DEVICE [facility] [address] [place] [address], [facility] FB60 [facility] in [place] [address] [place] [address] documented in this encounter Visit Diagnoses Diagnosis Prosthesis Aortic Valve- 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 Cardiac Surgery Status Post Bypass Coronary Artery Graft Status Post Snf (Current) Anticoagulant Treatment Monitoring For Therapeutic Drug Therapy Diabetes Mellitus Type 2 (HCC) documented in this encounter Additional Health Concerns Assessment Noted Time PHQ-9 Depression Total Score: 1 09/10/20 2:06 PM CDT documented as of this encounter Care Teams Career Technical Supervisor Relationship Specialty Start Date End Date Kylah Crum M.D. [address] [place] [phone] PCP - General Family Medicine 09/28/23 documented as of this encounter
--- OUTSIDE RECORDS SUMMARY | 2023-12-04 12:12 | XMS_ITS | Encounter Summary ---
Author Name Unknown Organization [facility] Address [address] [place] [address] Care Team Providers Care Civil Engineer In Training Name Role Phone Kylah Crum M.D. Primary Care Provider [phone] Reason for Visit * Outpatient (Routine) - Canceled Specialty Diagnoses / Procedures Referred By Sebas t Referred To Contact Anticoagulation Diagnoses 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 Cardiac Surgery Status Post Bypass Coronary Artery Graft Status Post Prosthesis Aortic Valve Kylah Crum M.D. [address] [place] [address] [facility] Referral ID Status Reason Start Date Expiration Date V isits Requested Visits Authorized [id number] Canceled 10/01/2023 09/30/2026 300 300 Encounter Details Date Type Department Care Team (Latest Contact Info) Description 10/17/2023 2:00 PM FISCAL ACCOUNTANT Anticoagulation Visit Department of Anticoagulation in [place], [place] [address] [place] [phone] Kylah Crum M.D. [address] [place] [address] Prosthesis Aortic Valve (Primary Dx); 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; Cardiac Surgery Status Post; Bypass Coronary Artery Graft Status Post; Nursing Home (Current) Anticoagulant Treatment; Monitoring For [...] your living situation today? I have a [facility] place to live 08/29/2023 Sex and Gender Information Value Date Recorded Sex Assigned at Male 08/29/2023 11:06 AM CDT Gender Identity Male 08/29/2023 11:06 AM CDT Sexual Orientation Straight 08/29/2023 11 :06 AM CDT documented as of this encounter Patient Instructions * Patient Instructions* Edna Quinones R.N. - 10/17/2023 2:00 PM FISCAL ACCOUNTANT Your next INR will be 10/22/2023. You will need to call the Anticoagulation Program for warfarin dosing at the scheduled time for your nurse visit, as indicated on your Patient Appointment Guide (PAG). To reschedule your appointment or for questions about your warfarin, please call Primary Care Anticoagulation Program at [phone] from 7:30 am to 4:30 pm. Sunday-Sunday [...] if you start any herbal or other wkvu-nxs-hgkdebn product (check with your doctor, a nurse, or pharmacist). If you change your diet significantly. If you decide to stop or start using tobacco or alcohol. If you notice unusual bruising or bleeding. If you notice dark, tarry, or bright red stools or blood in your urine. If you have a painful and swollen calf. AL ACCOUNTANT documented in this encounter Progress Notes * Edna Quinones R.N. - 10/17/2023 2:00 PM CST Warfarin Maintenance Nursing Protocol Goal Range 2.0-3.0 (version approved 12/2021) Visit Type: Telephone Primary reason for visit: Routine f/u OR f/u per previous visit recommendations Information provided by:patient INR result: 4.2 Goal range: 2.0-3.0 Inclusion Criteria: All inclusion criteria met. Proceeded to exclusion criteria. Exclusion Criteria: Section 1: No Section 1 exclusion criteria, proceeded to Section 2. Section 2: No Section 2 exclusion criteria, proceeded to screening criteria. Screening Criteria: Patient within first 12 weeks of warfarin therapy: yes. Today's INR is outside goal range. Proceed to maintenance warfarin dosing and follow-up. Current INR value has changed by greater than or equal to 1 since last INR check: yes. Dose change was made within last 7 days. Protocol does not apply. Provider input required. Patient has had a change in amiodarone (started, stopped, dose change) in last 8 weeks: yes. Amiodarone dose changed from 200mg BID to 200mg on 09/30/23.. Continued with Appendix A for dosing and follow-up. Additional Info: None Previous INR was therapeutic. Today???s INR is Supratherapeutic, Causes: See above positive screening criteria/additional information sections.. Dosing and follow up recommendation: Protocol does not apply based on positive screening criteria indicated above stating consult required. Consulted Anticoagulation [facility] for plan. Currently bridging: no. INR is therapeutic/supratherapeutic. Additional dosing or follow-up information: Provider consulted: Kelsey Renee- Anticoagulation [facility] Pt is on injectable anticoagulant: No. Plan used: Consult. See Anticoagulation Track Calendar for dosing and plan details. Anticoagulation Visit Summary: Patient repeats back dosing instructions, date of next INR, and has no further questions at this time. Total time spent with patient: 30 minutes AL ACCOUNTANT documented in this encounter Plan of Treatment Upcoming Encounters Date Type Department Care Team (Latest Contact Info) Description 12/21/2023 10:15 AM FISCAL ACCOUNTANT Clinical Communication Virtual Review in [place], [place] [address] [place] [address] 12/24/2023 2:00 PM FISCAL ACCOUNTANT Comprehensive Visit Department of Cardiovascular Medicine in [place], [place] [address] [place] [phone] Gudelia Soto M.D. [address] [place] [phone] 01/01/2024 3:45 PM FISCAL ACCOUNTANT Comprehensive Visit Division of Hematology in [place], [place] [address] [place] [phone] Billy Segal APRN, C.N.P., D.N.P. [address] [place] [phone] documented as of this encounter Results * INR Reflex, POCT, Blood (10/22/2023 11:32 AM FISCAL ACCOUNTANT) INR Reflex, POCT, B 3.6 10/22/2023 11:32 AM FISCAL ACCOUNTANT [id number] Comment: ----ADDITIONAL INFORMATION---- Standard intensity warfarin therapeutic range: 2.0 to 3.0 ?? High intensity warfarin therapeutic range: 2.5 to 3.5 Blood (Blood, Capillary) 10/22/2023 11:32 AM FISCAL ACCOUNTANT 10/22/2023 11:32 AM FISCAL ACCOUNTANT Kylah Crum M.D. LAB POCT ORDERABLES - DEVICE [facility] [address] [place] [address], [place] FB60 [facility] in [address] [address] documented in this encounter Visit Diagnoses Diagnosis Prosthesis Aortic Valve- 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 Cardiac Surgery Status Post Bypass Coronary Artery Graft Status Post Nursing Home (Current) Anticoagulant Treatment Monitoring For Therapeutic Drug Therapy documented in this encounter Additional Health Concerns Assessment Noted Time PHQ-9 Depression Total Score: 1 09/10/20 2:06 PM CDT documented as of this encounter Care Teams Civil Engineer In Training Relationship Specialty Start Date End Date Kylah Crum M.D. [address] [place] [phone] PCP - General Family Medicine 09/28/23 documented as of this encounter
--- OUTSIDE RECORDS SUMMARY | 2023-12-04 12:12 | XMS_ITS | Encounter Summary ---
Author Name Unknown Organization [facility] Address [address] [place] [address] Care Team Providers Care Rosin Barrel Filler Name Role Phone Kylah Crum M.D. Primary Care Provider [phone] Reason for Visit * Outpatient (Routine) - Canceled Specialty Diagnoses / Procedures Referred By Sebas t Referred To Contact Anticoagulation Diagnoses 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 Cardiac Surgery Status Post Bypass Coronary Artery Graft Status Post Prosthesis Aortic Valve Kylah Crum M.D. [address] [place] [address] [facility] Referral ID Status Reason Start Date Expiration Date V isits Requested Visits Authorized [id number] Canceled 10/01/2023 09/30/2026 300 300 Encounter Details Date Type Department Care Team (Latest Contact Info) Description 10/08/2023 3:00 PM SKIVER HAND Anticoagulation Visit Department of Anticoagulation in [place], [place] [address] [place] [address] Kylah Crum M.D. [address] [place] [phone] Case Assistant (Current) Anticoagulant Treatment (Primary Dx); 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; Cardiac Surgery Status Post; Bypass Coronary Artery Graft Status Post; Prosthesis Aortic Valve; Monitoring For Therapeutic Drug Therapy Social History [...] your living situation today? I have a [facility] place to live 08/29/2023 Sex and Gender Information Value Date Recorded Sex Assigned at Male 08/29/2023 11:06 AM CDT Gender Identity Male 08/29/2023 11:06 AM CDT Sexual Orientation Straight 08/29/2023 11 :06 AM CDT documented as of this encounter Patient Instructions * Patient Instructions* Jana Cason R.N. - 10/08/2023 3:00 PM SKIVER HAND Your next INR will be 10/12/23. You will need to call the Anticoagulation Program for warfarin dosing at the scheduled time for your nurse visit, as indicated on your Patient Appointment Guide (PAG). To reschedule your appointment or for questions about your warfarin, please call Primary Care Anticoagulation Program at [phone] from 7:30 am to 4:30 pm. Sunday-Sunday [...] if you start any herbal or other oejc-ace-dzpwiux product (check with your doctor, a nurse, or pharmacist). If you change your diet significantly. If you decide to stop or start using tobacco or alcohol. If you notice unusual bruising or bleeding. If you notice dark, tarry, or bright red stools or blood in your urine. If you have a painful and swollen calf. ER HAND documented in this encounter Progress Notes * Jana Cason R.N. - 10/08/2023 3:00 PM CST Warfarin Maintenance Nursing Protocol Goal Range 2.0-3.0 (version approved 12/2021) Visit Type: Telephone Primary reason for visit: Routine f/u OR f/u per previous visit recommendations Information provided by:patient INR result: 1.8 Goal range: 2.0-3.0 Inclusion Criteria: All inclusion [...] twice daily to 200 mg daily on 09/30/23.. Continued with Appendix A for dosing and follow-up. Additional Info: None Previous INR was subtherapeutic. Today???s INR is Subtherapeutic, Causes: New to warfarin, still establishing dose. Dosing and follow up recommendation: Protocol does not apply based on positive screening criteria indicated above stating consult required. Consulted Anticoagulation [facility] for plan. Currently bridging: no. INR is subtherapeutic, reviewed need for bridging with provider. Bridging ordered? No Additional dosing or follow-up information: Patient declined recommended f/u. Re-educated patient on rationale for dosing and return request. Will return on 10/12/23 per patient. Pt is on injectable anticoagulant: No. Plan used: Consult. See Anticoagulation Track Calendar for dosing and plan details. Anticoagulation Visit Summary: Patient repeats back dosing instructions, date of next INR, and has no further questions at this time. and Patient provided with warfarin dosing and next INR appointment via Patient Online Services. Patient encouraged to call or send message back if any questions. Total time spent with patient: N/A ER HAND documented in this encounter Plan of Treatment Upcoming Encounters Date Type Department Care Team (Latest Contact Info) Description 12/21/2023 10:15 AM SKIVER HAND Clinical Communication Virtual Review in [place], [place] 200 [place] [address] 12/24/2023 2:00 PM SKIVER HAND Comprehensive Visit Department of Cardiovascular Medicine in [place], [place] [address] [place] [phone] Gudelia Soto M.D. [address] [place] [phone] 01/01/2024 3:45 PM SKIVER HAND Comprehensive Visit Division of Hematology in [address] [phone] Billy Segal APRN, C.N.P., D.N.P. [address] [place] [phone] documented as of this encounter Results * INR Reflex, POCT, Blood (10/12/2023 11:03 AM SKIVER HAND) INR Reflex, POCT, B 2.5 10/12/2023 11:02 AM SKIVER HAND [id number] Comment: ----ADDITIONAL INFORMATION---- Standard intensity warfarin therapeutic range: 2.0 to 3.0 ?? High intensity warfarin therapeutic range: 2.5 to 3.5 Blood (Blood, Capillary) 10/12/2023 11:03 AM SKIVER HAND 10/12/2023 11:02 AM SKIVER HAND Kylah Crum M.D. LAB POCT ORDERABLES - DEVICE [facility] [address] [place] [address], [facility] FB60 [facility] in [place] [address] [place] [address] documented in this encounter Visit Diagnoses Diagnosis Case Assistant (Current) Anticoagulant Treatment- 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 Cardiac Surgery Status Post Bypass Coronary Artery Graft Status Post Prosthesis Aortic Valve Monitoring For Therapeutic Drug Therapy documented in this encounter Additional Health Concerns Assessment Noted Time PHQ-9 Depression Total Score: 1 09/10/20 23 2:06 PM CDT documented as of this encounter Care Teams Rosin Barrel Filler Relationship Specialty Start Date End Date Kylah Crum M.D. [address] [place] [phone] PCP - General Family Medicine 09/28/23 documented as of this encounter
--- OUTSIDE RECORDS SUMMARY | 2023-12-04 12:12 | XMS_ITS | Encounter Summary ---
Author Name Unknown Organization [facility] Address [address] [place] [address] Care Team Providers Care Returned Goods Receiving Clerk Name Role Phone Kylah Crum M.D. Primary Care Provider Reason for Referral * Outpatient (Routine) - Authorized Specialty Diagnoses / Procedures Referred By Sebas gimenez Referred To Contact Diagnoses Screening Abdominal Aortic Aneurysm Procedures US Aorta AAA Screening Kylah Crum M.D. [address] [place] [address] [facility] Region Referral ID Status Reason Start Date Expiration Date V isits Requested Visits Authorized [id number] Authorized 10/16/2023 10/15/2024 1 1 ER ATTENDANT Encounter Details Date Type Department Care Team (Late st Contact Info) Description 10/16/2023 Orders Only [facility] Kylah Crum M.D. [address] [place] [address] Screening Abdominal Aortic Aneurysm; Diabetes Mellitus Type 2 (HCC) Social History [...] your living situation today? I have a [facility] place to live 08/29/2023 Sex and Gender Information Value Date Recorded Sex Assigned at Male 08/29/2023 11:06 AM CDT Gender Identity Male 08/29/2023 11:06 AM CDT Sexual Orientation Straight 08/29/2023 11 :06 AM CDT documented as of this encounter Plan of Treatment Upcoming Encounters Date Type Department Care Team (Latest Contact Info) Description 12/21/2023 10:15 AM SHOWER ATTENDANT Clinical Communication Virtual Review in [address] [id number] 12/24/2023 2:00 PM SHOWER ATTENDANT Comprehensive Visit Department of Cardiovascular Medicine in [place], [place] [address] [place] [address] Gudelia Soto M.D. [address] [place] [address] 01/01/2024 3:45 PM SHOWER ATTENDANT Comprehensive Visit Division of Hematology in [place], [place] [address] [place] [address] Billy Segal APRN, C.N.P., D.N.P. [address] [place] [phone] Scheduled Orders Name Type Priority Associated Diagnoses Orde r Schedule US Aorta AAA Screening Imaging RAD - Routine (most inpatients and all outpatients) Screening Abdominal Aortic Aneurysm Expected: 10/30/2023, Expires: 04/13/2024 Albumin, Random, Urine Lab Routine Diabetes Mellitus Type 2 (HCC) Expected: 10/30/2023, Expires: 04/13/2024 documented as of this encounter Visit Diagnoses Diagnosis Screening Abdominal Aortic Aneurysm Diabetes Mellitus Type 2 (HCC) documented in this encounter Additional Health Concerns Assessment Noted Time PHQ-9 Depression Total Score: 1 09/10/20 2:06 PM CDT documented as of this encounter Care Teams Returned Goods Receiving Clerk Relationship Specialty Start Date End Date Kylah Crum M.D. [address] [place] [phone] PCP - General Family Medicine 09/28/23 documented as of this encounter
--- OUTSIDE RECORDS SUMMARY | 2023-12-04 12:12 | XMS_ITS | Encounter Summary ---
Author Name Unknown Organization [facility] Address [address] [place] [address] Care Team Providers Care Spinneret Cleaner Name Role Phone Kylah Crum M.D. Primary Care Provider [phone] Encounter Details Date Type Department Care Team (Latest Contact Info) Description 10/12/2023 10:50 AM LIBRARIAN SPECIALIST - 10/12/2023 11:59 PM [facility] Hospital Encounter Department of Laboratory Medicine in [place], [place] [address] [place] [phone] Kylah Crum M.D. [address] [place] [phone] 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; Cardiac Surgery Status Post; Bypass Coronary Artery Graft Status Post; Prosthesis Aortic Valve; Intermediate (Current) Anticoagulant Treatment; Monitoring For Therapeutic Drug [...] your living situation today? I have a [facility] place to live 08/29/2023 Sex and [...] (Latest Contact Info) Description 12/21/2023 10:15 AM LIBRARIAN SPECIALIST Clinical Communication Virtual Review in [place], [place] [address] [place] [address] 12/24/2023 2:00 PM LIBRARIAN SPECIALIST Comprehensive Visit Department of Cardiovascular Medicine in [place], [place] [address] [place] [address] Gudelia Soto M.D. [address] [place] [phone] 01/01/2024 3:45 PM LIBRARIAN SPECIALIST Comprehensive Visit Division of Hematology in [place], [place] [address] [place] [phone] Billy Segal APRN, C.N.P., D.N.P. [address] [place] [phone] documented as of this encounter Procedures Procedure Name Priority Date/Time Associated Diagnosis Comments INR REFLEX, POCT, B Routine 10/12/2023 11:03 AM LIBRARIAN SPECIALIST 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 Cardiac Surgery Status Post Bypass Coronary Artery Graft Status Post Prosthesis Aortic Valve Intermediate (Current) Anticoagulant Treatment Monitoring For Therapeutic Drug Therapy documented in this encounter Results * INR Reflex, POCT, Blood (10/12/2023 11:03 AM LIBRARIAN SPECIALIST) INR Reflex, POCT, B 2.5 10/12/2023 11:02 AM LIBRARIAN SPECIALIST [id number] Comment: ----ADDITIONAL INFORMATION---- Standard intensity warfarin therapeutic range: 2.0 to 3.0 ?? High intensity warfarin therapeutic range: 2.5 to 3.5 Blood (Blood, Capillary) 10/12/2023 11:03 AM LIBRARIAN SPECIALIST 10/12/2023 11:02 AM LIBRARIAN SPECIALIST Kylah Crum M.D. LAB POCT ORDERABLES - DEVICE [facility] [address] [place] [address], [place] FB60 [facility] in [place] [address] [place] [address] documented in this encounter Visit Diagnoses Diagnosis 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 Cardiac Surgery Status Post Bypass Coronary Artery Graft Status Post Prosthesis Aortic Valve After School Caregiver (Current) Anticoagulant Treatment Monitoring For Therapeutic Drug Therapy documented in this encounter Additional Health Concerns Assessment Noted Time PHQ-9 Depression Total Score: 1 09/10/20 2:06 PM CDT documented as of this encounter Care Teams Spinneret Cleaner Relationship Specialty Start Date End Date Kylah Crum M.D. [address] [place] [phone] PCP - General Family Medicine 09/28/23 documented as of this encounter
--- OUTSIDE RECORDS SUMMARY | 2023-12-04 12:12 | XMS_ITS | Encounter Summary ---
Author Name Unknown Organization [facility] Address [address] [place] [address] Care Team Providers Care Project Executive Name Role Phone Kylah Crum M.D. Primary Care Provider [phone] Reason for Visit * Reason Onset Date Comments Results 10/02/2023 Encounter Details Date Type Department Care Team (Late st Contact Info) Description 10/02/2023 Clinical Communication Department of Family Medicine, [facility], in [place], [place] [address] [place] [address] Kylah Crum M.D. [address] [place] [address] Results Social History Tobacco Use Types Packs/Day Years [...] your living situation today? I have a [facility] place to live 08/29/2023 Sex and Gender Information Value Date Recorded Sex Assigned at Male 08/29/2023 11:06 AM CDT Gender Identity Male 08/29/2023 11:06 AM CDT Sexual Orientation Straight 08/29/2023 11 :06 AM CDT documented as of this encounter Miscellaneous Notes * Telephone Encounter - Katya Brito, L.P.N. - 10/02/2023 9:13 AM LINOLEUM PRINTER Left message for patient to return call to clinic. Does the patient need to speak to nursing? yes Action needed: ----- Message from Kylah Crum M.D. sent at 10/01/2023 4:54 PM LINOLEUM PRINTER ----- Kidney function test is stable. LEUM PRINTER * Telephone Encounter - Katya Brito LJarrettPJarrettN. - 10/02/2023 9:13 AM LINOLEUM PRINTER ----- Message from Kylah Crum M.D. sent at 10/01/2023 4:54 PM LINOLEUM PRINTER ----- Kidney function test is stable. LEUM PRINTER documented in this encounter Plan of Treatment Upcoming Encounters Date Type Department Care Team (Latest Contact Info) Description 12/21/2023 10:15 AM LINOLEUM PRINTER Clinical Communication Virtual Review in [place], [place] [address] [place] [address] 12/24/2023 2:00 PM LINOLEUM PRINTER Comprehensive Visit Department of Cardiovascular Medicine in [place], [place] [address] [place] [phone] Gudelia Soto M.D. [address] [place] [phone] 01/01/2024 3:45 PM LINOLEUM PRINTER Comprehensive Visit Division of Hematology in [address] [phone] Billy Segal APRN, C.N.P., D.N.P. [address] [place] [phone] documented as of this encounter Visit Diagnoses Not on filedocumented in this encounter Additional Health Concerns Assessment Noted Time PHQ-9 Depression Total Score: 1 09/10/20 2:06 PM CDT documented as of this encounter Care Teams Project Executive Relationship Specialty Start Date End Date Kylah Crum M.D. [address] [place] [phone] PCP - General Family Medicine 09/28/23 documented as of this encounter
--- OUTSIDE RECORDS SUMMARY | 2023-12-04 12:12 | XMS_ITS | Encounter Summary ---
Author Name Unknown Organization [facility] Address [address] [place] [address] Care Team Providers Care Refrigeration Houseman Name Role Phone Kylah Crum M.D. Primary Care Provider [phone] Reason for Visit * Outpatient (Routine) - Canceled Specialty Diagnoses / Procedures Referred By Sebas t Referred To Contact Anticoagulation Diagnoses 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 Cardiac Surgery Status Post Bypass Coronary Artery Graft Status Post Prosthesis Aortic Valve Kylah Crum M.D. [address] [place] [address] [facility] Referral ID Status Reason Start Date Expiration Date V isits Requested Visits Authorized [id number] Canceled 10/01/2023 09/30/2026 300 300 Encounter Details Date Type Department Care Team (Latest Contact Info) Description 10/12/2023 11:30 AM TEACHER DANCING Anticoagulation Visit Department of Anticoagulation in [place], [place] [address] [place] [address] Kylah Crum M.D. [address] [place] [address] Nursing Home (Current) Anticoagulant Treatment (Primary Dx); Coronary Arterial [...] your living situation today? I have a [facility] place to live 08/29/2023 Sex and Gender Information Value Date Recorded Sex Assigned at Male 08/29/2023 11:06 AM CDT Gender Identity Male 08/29/2023 11:06 AM CDT Sexual Orientation Straight 08/29/2023 11 :06 AM CDT documented as of this encounter Patient Instructions * Patient Instructions* Caitlin Ospina R.N. - 10/12/2023 11:30 AM TEACHER DANCING Your next INR will be 10/17/23. You will need to call the Anticoagulation Program for warfarin dosing at the scheduled time for your nurse visit, as indicated on your Patient Appointment Guide (PAG). To reschedule your appointment or for questions about your warfarin, please call Primary Care Anticoagulation Program at [phone] from 7:30 am to 4:30 pm. Sunday-Sunday [...] if you start any herbal or other lmnc-kra-pionvpn product (check with your doctor, a nurse, or pharmacist). If you change your diet significantly. If you decide to stop or start using tobacco or alcohol. If you notice unusual bruising or bleeding. If you notice dark, tarry, or bright red stools or blood in your urine. If you have a painful and swollen calf. HER DANCING documented in this encounter Progress Notes * Caitlin Ospina R.N. - 10/12/2023 11:30 AM CST Warfarin Maintenance Nursing Protocol Goal Range 2.0-3.0 (version approved 12/2021) Visit Type: Telephone Primary reason for visit: Routine f/u OR f/u per previous visit recommendations Information provided by:patient INR result: 2.5 Goal range: 2.0-3.0 Inclusion Criteria: All inclusion [...] yes. Amiodarone dose changed from 200 mg BID to 200 mg daily on 09/30/23.. Continued with Appendix A for dosingand follow-up. Additional Info: Started cardiac rehab Sunday. Previous INR was subtherapeutic. Today???s INR is Therapeutic. Dosing and follow up recommendation: Protocol does not apply based on positive screening criteria indicated above stating consult required. Consulted Anticoagulation [facility] for plan. Currently bridging: no. INR is therapeutic/supratherapeutic. Additional dosing or follow-up information: None. Pt is on injectable anticoagulant: No. Plan used: Consult. See Anticoagulation Track Calendar for dosing and plan details. Anticoagulation Visit Summary: Patient repeats back dosing instructions, date of next INR, and has no further questions at this time. Total time spent with patient: N/A HER DANCING documented in this encounter Plan of Treatment Upcoming Encounters Date Type Department Care Team (Latest Contact Info) Description 12/21/2023 10:15 AM TEACHER DANCING Clinical Communication Virtual Review in [place] [address] [place] [address] 12/24/2023 2:00 PM TEACHER DANCING Comprehensive Visit Department of Cardiovascular Medicine in [place], [place] [address] [place] [phone] Gudelia Soto M.D. [address] [place] [phone] 01/01/2024 3:45 PM TEACHER DANCING Comprehensive Visit Division of Hematology in [place], [place] [address] [place] [phone] Billy Segal APRN, C.N.P., D.N.P. [address] [place] [phone] documented as of this encounter Results * INR Reflex, POCT, Blood (10/17/2023 11:22 AM TEACHER DANCING) INR Reflex, POCT, B 4.2 10/17/2023 11:21 AM TEACHER DANCING [id number] Comment: ----ADDITIONAL INFORMATION---- Standard intensity warfarin therapeutic range: 2.0 to 3.0 ?? High intensity warfarin therapeutic range: 2.5 to 3.5 Blood (Blood, Capillary) 10/17/2023 11:22 AM TEACHER DANCING 10/17/2023 11:21 AM TEACHER DANCING Kylah Crum M.D. LAB POCT ORDERABLES - DEVICE Performing Organization Address City/State/[facility] Co de Phone Number [facility] [address] [place] [address], [facility] FB60 [facility] in [place] [address] [place] [address] documented in this encounter Visit Diagnoses Diagnosis Nursing Home (Current) Anticoagulant Treatment- 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 Cardiac Surgery Status Post Bypass Coronary Artery Graft Status Post Prosthesis Aortic Valve Monitoring For Therapeutic Drug Therapy documented in this encounter Additional Health Concerns Assessment Noted Time PHQ-9 Depression Total Score: 1 09/10/20 23 2:06 PM CDT documented as of this encounter Care Teams Refrigeration Houseman Relationship Specialty Start Date End Date Kylah Crum M.D. [address] [place] [address] [place] [phone] PCP - General Family Medicine 09/28/23 documented as of this encounter
--- OUTSIDE RECORDS SUMMARY | 2023-12-04 12:12 | XMS_ITS | Encounter Summary ---
Author Name Unknown Organization [facility] Address [address] [place] [address] Care Team Providers Care Vocational Psychologist Name Role Phone Kylah Crum M.D. Primary Care Provider [phone] Reason for Visit * Outpatient (Routine) - Closed Specialty Diagnoses / Procedures Referred By Sebas gimenez Referred To Contact Nephrology and Hypertension Diagnoses Chronic Kidney Disease Stage 4 Glomerular Filtration Rate 15-29 (HCC) Procedures Nephrology - Chronic renal failure eConsult Kylah Crum M.D. [address] [place] [phone] [facility] Referral ID Status Reason Start Date Expiration Date Visits Re quested Visits Authorized [id number] Closed 10/01/2023 09/30/2024 1 1 Encounter Details Date Type Department Care Team (Latest Contact Info) Description 10/02/2023 4:45 PM MARKETING SUPPORT SPECIALIST Internal E-Consult Division of Nephrology and Hypertension in [place], [place] [address] [place] [address] Pavan May M.D. [address] [place] [address] Elevated Creatinine (Primary Dx); Failure Renal Acute (Acute Kidney Injury) (HCC) Social History Tobacco Use Types Packs/Day [...] your living situation today? I have a [facility] place to live 08/29/2023 Sex and Gender Information Value Date Recorded Sex Assigned at Male 08/29/2023 11:06 AM CDT Gender Identity Male 08/29/2023 11:06 AM CDT Sexual Orientation Straight 08/29/2023 11 :06 AM CDT documented as of this encounter Consult Notes * Pavan May M.D. - 10/02/2023 4:45 PM CST Referring Provider: Kylah Crum M.D. SUBJECTIVE REASON FOR CONSULT Elevated creatinine HISTORY OF PRESENT ILLNESS Mr. Harris is a 73 y.o. 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 He was discharged from the hospital on 09/26/2023. He has history of CKD G3. His baseline creatinine has been approximately 1.4 mg/dL since 2020. He was noted to have an episode of MANJEET in August 2023, it peak creatinine of 1.9, recovered to 1.39 on 09/19/2023. During his hospital stay, had another episode of MANJEET with peak creatinine of 2.64 on 09/25/2023 and improved to 2.41 on his discharge day. Most recent creatinine is 2.36 on 10/01/2023. Potassium 4.5. At the time of MANJEET, urine analysis was not checked. However, his urinalysis on 08/20/2023 was negative for proteinuria hematuria or any other abnormalities. No imaging was checked during hospital stay. Patient is not on any LEATHA/ARB/spironolactone as per medication list. The following portions of the patient's history were reviewed and updated as appropriate: allergies, current medications, family history, medical history, social history, surgical history, and problem list. REVIEW OF SYSTEMS N/A as this an e-consult OBJECTIVE There were no vitals taken for this visit. PHYSICAL EXAMINATION N/A as this is an e-consult DIAGNOSTICS Available labs and diagnostic data reviewed ASSESSMENT / PLAN #1 Elevated Creatinine #2 Failure Renal Acute (Acute Kidney Injury) (HCC) The patient has a recent MANJEET stage I, urinalysis and imaging studies were not checked during hospital stay. I recommend checking a renal ultrasound, urinalysis with microscopy, and refer the patient for inpatient evaluation by Nephrology. I would adjust the dose of medications for GFR. Avoid nephrotoxins. Abiola May M.D. ETING SUPPORT SPECIALIST documented in this encounter Plan of Treatment Upcoming Encounters Date Type Department Care Team (Latest Contact Info) Description 12/21/2023 10:15 AM MARKETING SUPPORT SPECIALIST Clinical Communication Virtual Review in [place], [place] 200 [place] [address] 12/24/2023 2:00 PM MARKETING SUPPORT SPECIALIST Comprehensive Visit Department of Cardiovascular Medicine in [place], [place] [address] [place] [phone] Gudelia Soto M.D. [address] [place] [phone] 01/01/2024 3:45 PM MARKETING SUPPORT SPECIALIST Comprehensive Visit Division of Hematology in [address] [phone] Billy Segal APRN, C.N.P., D.N.P. [address] [place] [phone] documented as of this encounter Visit Diagnoses Diagnosis Elevated Creatinine- Primary Failure Renal Acute (Acute Kidney Injury) (HCC) documented in this encounter Additional Health Concerns Assessment Noted Time PHQ-9 Depression Total Score: 1 09/10/20 2:06 PM CDT documented as of this encounter Care Teams Vocational Psychologist Relationship Specialty Start Date End Date Kylah Crum M.D. [address] [place] [phone] PCP - General Family Medicine 09/28/23 documented as of this encounter
--- OUTSIDE RECORDS SUMMARY | 2023-12-04 12:12 | XMS_ITS | Encounter Summary ---
Author Name Unknown Organization [facility] Address [address] [place] [address] Care Team Providers Care Sat Act Instructor Name Role Phone Kylah Crum M.D. Primary Care Provider [phone] Reason for Visit * Outpatient (Routine) - Canceled Specialty Diagnoses / Procedures Referred By Sebas t Referred To Contact Anticoagulation Diagnoses 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 Cardiac Surgery Status Post Bypass Coronary Artery Graft Status Post Prosthesis Aortic Valve Kylah Crum M.D. [address] [place] [address] [facility] Referral ID Status Reason Start Date Expiration Date V isits Requested Visits Authorized [id number] Canceled 10/01/2023 09/30/2026 300 300 Encounter Details Date Type Department Care Team (Latest Contact Info) Description 10/05/2023 11:00 AM BRAKE DRUM LATHE OPERATOR Anticoagulation Visit Department of Anticoagulation in [place], [place] [address] [place] [address] Kylah Crum M.D. [address] [place] [address] Prison (Current) Anticoagulant Treatment (Primary Dx); Coronary Arterial [...] your living situation today? I have a [facility] place to live 08/29/2023 Sex and Gender Information Value Date Recorded Sex Assigned at Male 08/29/2023 11:06 AM CDT Gender Identity Male 08/29/2023 11:06 AM CDT Sexual Orientation Straight 08/29/2023 11 :06 AM CDT documented as of this encounter Patient Instructions * Patient Instructions* Tatiana Chen R.N. - 10/05/2023 11:00 AM BRAKE DRUM LATHE OPERATOR Your next INR will be 10/08/23. You will need to call the Anticoagulation Program for warfarin dosing at the scheduled time for your nurse visit, as indicated on your Patient Appointment Guide (PAG). To reschedule your appointment or for questions about your warfarin, please call Primary Care Anticoagulation Program at [phone] from 7:30 am to 4:30 pm. Sunday-Sunday [...] if you start any herbal or other guds-top-hmynxsl product (check with your doctor, a nurse, or pharmacist). If you change your diet significantly. If you decide to stop or start using tobacco or alcohol. If you notice unusual bruising or bleeding. If you notice dark, tarry, or bright red stools or blood in your urine. If you have a painful and swollen calf. E DRUM LATHE OPERATOR documented in this encounter Progress Notes * Tatiana Chen R.N. - 10/05/2023 11:00 AM CST Warfarin Maintenance Nursing Protocol Goal Range 2.0-3.0 (version approved 12/2021) Visit Type: Telephone Primary reason for visit: Routine f/u OR f/u per previous visit recommendations Information provided by:patient INR result: 1.7 Goal range: 2.0-3.0 Inclusion Criteria: All inclusion [...] Continued with Appendix A for dosingand follow-up. Patient has had a change in diet, lifestyle, alcohol intake, tobacco habits, health status, hospitalization, or surgery in the last 3 days: yes. Health status change: Weakness and low B/P at cardiac rehab. Proceeded to maintenance warfarin dosing and follow-up, but have patient return for follow-upINR in 7-10 days. Additional Info: None Previous INR was subtherapeutic. Today???s INR is Subtherapeutic, Causes: New to warfarin, still establishing dose. Dosing and follow up recommendation: Protocol does not apply based on positive screening criteria indicated above stating consult required. Consulted Anticoagulation [facility] for plan. Currently bridging: no. INR is subtherapeutic, reviewed need for bridging with provider. Bridging ordered? No Additional dosing or follow-up information: Next INR in 4 days per consult with Anticoagulation RPwilma consulted: Lois Gomez-Anticoagulation [facility] Pt is on injectable anticoagulant: No. Plan [...] questions. Total time spent with patient: N/A E DRUM LATHE OPERATOR documented in this encounter Plan of Treatment Upcoming Encounters Date Type Department Care Team (Latest Contact Info) Description 12/21/2023 10:15 AM BRAKE DRUM LATHE OPERATOR Clinical Communication Virtual Review in [place], [place] [address] [place] [address] 12/24/2023 2:00 PM BRAKE DRUM LATHE OPERATOR Comprehensive Visit Department of Cardiovascular Medicine in [address] [phone] Gudelia Soto M.D. [address] [place] [phone] 01/01/2024 3:45 PM BRAKE DRUM LATHE OPERATOR Comprehensive Visit Division of Hematology in [address] [phone] Billy Segal APRN, C.N.P., D.N.P. [address] [place] [phone] documented as of this encounter Results * INR Reflex, POCT, Blood (10/08/2023 12:52 PM BRAKE DRUM LATHE OPERATOR) INR Reflex, POCT, B 1.8 10/08/2023 12:51 PM BRAKE DRUM LATHE OPERATOR [id number] Comment: ----ADDITIONAL INFORMATION---- Standard intensity warfarin therapeutic range: 2.0 to 3.0 ?? High intensity warfarin therapeutic range: 2.5 to 3.5 Blood (Blood, Capillary) 10/08/2023 12:52 PM BRAKE DRUM LATHE OPERATOR 10/08/2023 12:51 PM BRAKE DRUM LATHE OPERATOR Kylah Crum M.D. LAB POCT ORDERABLES - DEVICE [facility] [address] [facility] [place] [phone], [facility] FB60 [facility] in [place] [address] [facility] [place] [address] documented in this encounter Visit Diagnoses Diagnosis Jewelry [employer]isher (Current) Anticoagulant Treatment- 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 Cardiac Surgery Status Post Bypass Coronary Artery Graft Status Post Prosthesis Aortic Valve Monitoring For Therapeutic Drug Therapy documented in this encounter Additional Health Concerns Assessment Noted Time PHQ-9 Depression Total Score: 1 09/10/20 23 2:06 PM CDT documented as of this encounter Care Teams Sat Act Instructor Relationship Specialty Start Date End Date Kylah Crum M.D. 300 [facility] [place] [phone] PCP - General Family Medicine 09/28/23 documented as of this encounter
--- OUTSIDE RECORDS SUMMARY | 2023-12-04 12:12 | XMS_ITS | Encounter Summary ---
Author Name Unknown Organization [facility] Address [address] [place] [address] Care Team Providers Care Roller Machine Operator Name Role Phone Kylah Crum M.D. Primary Care Provider [phone] Encounter Details Date Type Department Care Team (Latest Contact Info) Description 10/08/2023 12:36 PM MEDICAL RECORDS AUDITOR - 10/08/2023 11:59 PM MEDICAL RECORDS AUDITOR Hospital Encounter Department of Laboratory Medicine in [place], [place] [address] [place] [phone] Kylah Crum M.D. [address] [place] [phone] 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; Cardiac Surgery Status Post; Bypass Coronary Artery Graft Status Post; Prosthesis Aortic Valve; Senior Living (Current) Anticoagulant Treatment; Monitoring For Therapeutic Drug [...] your living situation today? I have a [facility] place to live 08/29/2023 Sex [...] every morning before breakfast. 0 09/26/2023 10/26/2023 furosemide (LASIX) 20 mg tablet Take 1 tablet (20 mg total) by mouth daily for 10 days. 10 tablet 0 09/26/2023 10/12/2023 warfarin (JANTOVEN) 1 mg tablet Please take 1 tablet (1 mg) by mouth daily on 09/26 and 09/27. Recheck INR on 09/28 with dosing to follow per PCP. 100 tablet 0 09/26/2023 10/31/2023 documented as of this encounter Plan of Treatment Upcoming Encounters Date Type Department Care Team (Latest Contact Info) Description 12/21/2023 10:15 AM MEDICAL RECORDS AUDITOR Clinical Communication Virtual Review in [place], [place] [address] [place] [address] 12/24/2023 2:00 PM MEDICAL RECORDS AUDITOR Comprehensive Visit Department of Cardiovascular Medicine in [place], [place] [address] [place] [address] Gudelia Soto M.D. [address] [place] [phone] 01/01/2024 3:45 PM MEDICAL RECORDS AUDITOR Comprehensive Visit Division of Hematology in [place], [place] [address] [place] [phone] Billy Segal APRN, C.N.P., D.N.P. [address] [place] [phone] documented as of this encounter Procedures Procedure Name Priority Date/Time Associated Diagnosis Comments INR REFLEX, POCT, B Routine 10/08/2023 12:52 PM MEDICAL RECORDS AUDITOR 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 Cardiac Surgery Status Post Bypass Coronary Artery Graft Status Post Prosthesis Aortic Valve Senior Living (Current) Anticoagulant Treatment Monitoring For Therapeutic Drug Therapy documented in this encounter Results * INR Reflex, POCT, Blood (10/08/2023 12:52 PM MEDICAL RECORDS AUDITOR) INR Reflex, POCT, B 1.8 10/08/2023 12:51 PM MEDICAL RECORDS AUDITOR [id number] Comment: ----ADDITIONAL INFORMATION---- Standard intensity warfarin therapeutic range: 2.0 to 3.0 ?? High intensity warfarin therapeutic range: 2.5 to 3.5 Blood (Blood, Capillary) 10/08/2023 12:52 PM MEDICAL RECORDS AUDITOR 10/08/2023 12:51 PM MEDICAL RECORDS AUDITOR Kylah Crum M.D. LAB POCT ORDERABLES - DEVICE [facility] [address] [place] [address], [place] [id number] [facility] [place] [address] [place] [address] documented in this encounter Visit Diagnoses Diagnosis 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 Cardiac Surgery Status Post Bypass Coronary Artery Graft Status Post Prosthesis Aortic Valve Senior Living (Current) Anticoagulant Treatment Monitoring For Therapeutic Drug Therapy documented in this encounter Additional Health Concerns Assessment Noted Time PHQ-9 Depression Total Score: 1 09/10/20 2:06 PM CDT documented as of this encounter Care Teams Roller Machine Operator Relationship Specialty Start Date End Date Kylah Crum M.D. [address] [place] [address] [place] [phone] PCP - General Family Medicine 09/28/23 documented as of this encounter
--- OUTSIDE RECORDS SUMMARY | 2023-12-04 12:12 | XMS_ITS | Encounter Summary ---
Author Name Unknown Organization [facility] Address [address] [place] [address] Care Team Providers Care Figure Refinisher And Repairer Name Role Phone Kylah Crum M.D. Primary Care Provider Reason for Visit * Appointment Request (Routine) - Closed Specialty Diagnoses / Procedures Referred By Sebas gimenez Referred To Contact Cardiovascular Surgery Referral ID Status Reason Start Date Expiration Date Visits Re quested Visits Authorized [id number] Closed 10/03/2023 10/02/2024 1 1 Encounter Details Date Type Department Care Team (Latest Contact Info) Description 10/05/2023 1:00 PM ICT QUALITY ASSURANCE ENGINEER Virtual Visit Department of Cardiovascular Surgery in [place], [place] [address] [place] [address] Mairama Monk, LAY MIDWIFE, C.N.P. [address] [place] [address] Cardiac Surgery Status Post (Primary Dx); 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; Prosthesis Aortic Valve; [facility] (Current) Anticoagulant Treatment Social History Tobacco Use Types Packs/Day Years [...] your living situation today? I have a [facility] place to live 08/29/2023 Sex and Gender Information Value Date Recorded Sex Assigned at Male 08/29/2023 11:06 AM CDT Gender Identity Male 08/29/2023 11:06 AM CDT Sexual Orientation Straight 08/29/2023 11 :06 AM CDT documented as of this encounter Progress Notes * Mariama Monk, PIERRE, C.N.P. - 10/05/2023 1:00 PM CST Jong Harris : 1950 Visit Date: 10/05/23 FKY-FFVY-IT-FACE VISIT Consult conducted via real-time audio/video technology by Mariama Monk APRN, C.N.P. in [facility] to the patient in Patient's Home SUBJECTIVE Aortic valve replacement using 23 mm OnX conformX CABG x1 with reverse saphenous vein from aorta to PDA Endoscopic vein harvest of left lower extremity Left atrial Maze ablation using RFA clamp Left atrial appendage amputation Cardiopulmonary bypass with cooling to 34?? C Antegrade [place] cardioplegia cardiac arrest Intraoperative echocardiogram Incisional wound VAC Surgeon: Dr. Miller Surgical Date: 09/19/23 Discharge Date: 09/26/23 HISTORY OF PRESENT ILLNESS Jong Harris is a 73 y.o. male who was contacted for a routine postoperative follow-up visit.Per the hospital discharge summary, the postoperative course was as follows: OR: Just after surgery and sternal closure on 09/20, Jong Harris was noted to have increased chest tube output. Due to persistent increased chest tube output, chest was re-opened. Small amount of clots from pericardium were evacuated. Hemostasis was achieved and chest was closed. Patient was transferred to ICU. ICU: Patient arrived to ICU on 09/19 and was extubated. Inotrope was quickly weaned. Chest tube output remained appropriate. He was noted to have acute kidney injury and hyperkalemia. He was temporized with diuretic and Lokelma. He was started on beta-leonora. He was transitioned to PCU status on 09/21. PCU: On 09/22, he was given one unit RBCs for low hemoglobin. Chest tubes were removed per protocol. Medications were initiated and titrated as tolerated for optimal blood pressure and heart rate control. An amiodarone taper was initiated for atrial fibrillation prevention. His MANJEET continued to improve with conservative management. Warfarin was initiated for anticoagulation. He had an assisted fall due to lower extremity weakness on the evening of 09/22 with no injuries. His creatinine increased slightly again on 09/23 and his diuresis de- escalated. He remained hemodynamically stable. Patientdeclined SNF placement. Discharged home 09/26. Mr. Harris reports that the transition to the outpatient setting has gone well. He denies significant pain, just with coughing. Tylenol is helpful. The surgical incision is healing well without concerns for infection. Denies fever, chills, night sweats, dyspnea, productive cough, dizziness, palpitations, constipation, or concern for lower extremity edema. The patient has been active, gradually progressing activity and is using the incentive spirometer. Appetite is poor, he is trying to increase protein at the recommendations of a recent ER visit for weakness. CURRENT MEDICATIONS Current Medications: acetaminophen (TYLENOL) 500 mg tablet, Take 1,000 mg by mouth every 6 (six) hours as needed for pain. amiodarone (PACERONE) 200 mg tablet, Take 1 tablet (200 mg total) by mouth 2 (two) times a day for 2 days, THEN 1 tablet (200 mg total) daily. aspirin 81 mg chewable tablet, Chew 1 tablet (81 mg total) daily. atorvastatin (LIPITOR) 80 mg tablet, Take 1 tablet (80 mg total) by mouth at bedtime. cholecalciferol 10 mcg (400 Unit) tablet, Take 10 mcg by mouth daily. cyanocobalamin 2,000 mcg tablet, Take 2,000 mcg by mouth daily. ferrous sulfate 325 mg (65 mg iron) DR tablet, Take 65 mg of iron by mouth daily. finasteride (PROSCAR) 5 mg tablet, Take 1 tablet (5 mg total) by mouth daily. furosemide (LASIX) 20 mg tablet, Take 1 tablet (20 mg total) by mouth daily for 10 days. glipiZIDE (GLUCOTROL XL) 2.5 mg 24 hr tablet, Take 1 tablet (2.5 mg total) by mouth daily with breakfast. metoprolol tartrate (LOPRESSOR) 25 mg tablet, Take 1 tablet (25 mg total) by mouth 2 (two) times a day. pantoprazole (PROTONIX) 40 mg EC tablet, Take 1 tablet (40 mg total) by mouth every morning before breakfast. (Patient not taking: Reported on 10/01/2023) rOPINIRole (REQUIP) 0.5 mg tablet, Take 1 tablet (0.5 mg total) by mouth 3 (three) times a day. tamsulosin (FLOMAX) 0.4 mg 24 hr capsule, Take 1 capsule (0.4 mg total) by mouth at bedtime. warfarin (JANTOVEN) 1 mg tablet, Please take 1 tablet (1 mg) by mouth daily on 09/26 and 09/27. Recheck INR on 09/28 with dosing to follow per PCP. OBJECTIVE PHYSICAL EXAMINATION General: Alert and oriented. No acute distress. ASSESSMENT / PLAN #1 Cardiac Surgery Status Post #2 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 #3 Prosthesis Aortic Valve #4 [facility] (Current) Anticoagulant Treatment Overall, Mr. Harris is recovering well following cardiac surgery. Postoperative recovery and expectations were discussed in detail. Incision Care: -I re-emphasized the importance of washing the incision every day in the shower with a mild liquid soap. -Signs of infection and reasons to call were reviewed. Pain Management: I discussed pain management options with the patient including both medication and non-medication approaches. Diuresis: -Admission weight 85.8 kg. Discharge weight 87.9 kg. Today's weight unknown as he has not been weighing daily. He does continue to have edema. -Daily weights were discussed. I encouraged the patient to watch for signs of fluid overload and tosee the local provider for worsening lower extremity edema or increases in weight. -I recommended elevation of the lower extremities, use of compression stockings, and short, frequent walks throughout the day to minimize swelling. - Mr. Harris was discharged on Lasix 20 mg daily was prescribed for 10 days. I explained to him that this may need to continue for longer than 10 days pending swelling and weight. He verbalized understanding and will work with his local provider. Anticoagulation Management: -Warfarin (Coumadin initiated). -INR goal: 2.5 +/- 0.5 -Warfarin duration and indication: Lifelong for a mechanical aortic valve. He is being followed by his local anticoagulation clinic. Antiplatelet Recommendations: Aspirin 81 mg daily recommended to continue life long for coronary artery disease and mechanical valve. Activity: -I have encouraged activity and continued use of the incentive spirometer. -Patient advised to continue with sternal precautions as detailed in the discharge instructions. -Patient may begin cardiac rehab as directed by local rehab clinic. Patient referred to: [facility] [address] [place] [phone] Other Medications: -I reviewed medications with Mr. Harris. -Blood pressure has been appropriate per patient report. Metoprolol was initiated and titrated up to 25 mg twice daily prior to dismissal. Home provider should continue to titrate medications as needed for optimal blood pressure control. -[place] [employer] Guidelines for individuals with coronary artery disease recommend the following medications: aspirin, a beta-leonora, a statin, and an LEATHA inhibitor. An LEATHA inhibitor was not prescribed at dismissal due to MANJEET. Please initiate if able. -An oral amiodarone taper was initiated for prevention of atrial fibrillation and was prescribed tocontinue after dismissal. The amiodarone can be discontinued after completion of the taper if no issues with atrial fibrillation or per recommendations by the Rest Room Maid. -Any refills of medications should come from patient's local primary care provider. Other Recommendations: -Warriormine CV Surgery via a video visit on 10/03, Primary Care Provider appointment on 10/01 with INR, Primary Rest Room Maid appointment TBD, referral sent. -Please monitor blood glucose BID due to initiation of glipizide and discontinuation of metformin due to GFR < 30. Continue to monitor kidney function closely. Surgical follow up is completed at this time but we remain available should surgical concerns arise. I have answered all questions/concerns to the best of my ability. Our contact information was provided with recommendations to call with any questions or concerns. Thank you for the opportunity to participate in the care of this patient. I personally spent 20 minutes in care of the patient today. Time includes wvp-iqli-la-face patient care and review of records. Mariama Monk APRN, C.N.P. QUALITY ASSURANCE ENGINEER documented in this encounter Plan of Treatment Upcoming Encounters Date Type Department Care Team (Latest Contact Info) Description 12/21/2023 10:15 AM ICT QUALITY ASSURANCE ENGINEER Clinical Communication Virtual Review in [address] [address] 12/24/2023 2:00 PM ICT QUALITY ASSURANCE ENGINEER Comprehensive Visit Department of Cardiovascular Medicine in [address] [phone] Gudelia Soto M.D. [address] [place] [phone] 01/01/2024 3:45 PM ICT QUALITY ASSURANCE ENGINEER Comprehensive Visit Division of Hematology in [address] [phone] Billy Segal APRN, C.N.P., D.N.P. [address] [place] [phone] documented as of this encounter Visit Diagnoses Diagnosis Cardiac Surgery Status Post- 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 Prosthesis Aortic Valve [facility] (Current) Anticoagulant Treatment documented in this encounter Additional Health Concerns Assessment Noted Time PHQ-9 Depression Total Score: 1 09/10/20 23 2:06 PM CDT documented as of this encounter Care Teams Figure Refinisher And Repairer Relationship Specialty Start Date End Date Kylah Crum M.D. [address] [place] [phone] PCP - General Family Medicine 09/28/23 documented as of this encounter
--- OUTSIDE RECORDS SUMMARY | 2023-12-04 12:12 | XMS_ITS | Encounter Summary ---
Author Name Unknown Organization [facility] Address [address] [place] [address] Care Team Providers Care Gift Basket Packer Name Role Phone Kylah Crum M.D. Primary Care Provider Encounter Details Date Type Department Care Team (Latest Contact Info) Description 10/05/2023 10:20 AM HEAD OF ETHICS AND COMPLIANCE - 10/05/2023 11:59 PM [facility] Hospital Encounter Department of Laboratory Medicine in [place], [place] [address] [place] [phone] Kylah Crum M.D. [address] [place] [phone] 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 [...] your living situation today? I have a [facility] place to live 08/29/2023 Sex and [...] (Latest Contact Info) Description 12/21/2023 10:15 AM HEAD OF ETHICS AND COMPLIANCE Clinical Communication Virtual Review in [place], [place] [address] [place] [address] 12/24/2023 2:00 PM HEAD OF ETHICS AND COMPLIANCE Comprehensive Visit Department of Cardiovascular Medicine in [place], [place] [address] [place] [address] Gudelia Soto M.D. [address] [place] [phone] 01/01/2024 3:45 PM HEAD OF ETHICS AND COMPLIANCE Comprehensive Visit Division of Hematology in [place], [place] [address] [place] [phone] Billy Segal APRN, C.N.P., D.N.P. [address] [place] [phone] documented as of this encounter Procedures Procedure Name Priority Date/Time Associated Diagnosis Comments INR REFLEX, POCT, B Routine 10/05/2023 10:35 AM HEAD OF ETHICS AND COMPLIANCE 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 Cardiac Surgery Status Post Bypass Coronary Artery Graft Status Post Prosthesis Aortic Valve Shelter (Current) Anticoagulant Treatment Monitoring For Therapeutic Drug Therapy documented in this encounter Results * INR Reflex, POCT, Blood (10/05/2023 10:35 AM HEAD OF ETHICS AND COMPLIANCE) INR Reflex, POCT, B 1.7 10/05/2023 10:35 AM HEAD OF ETHICS AND COMPLIANCE [id number] Comment: ----ADDITIONAL INFORMATION---- Standard intensity warfarin therapeutic range: 2.0 to 3.0 ?? High intensity warfarin therapeutic range: 2.5 to 3.5 Blood (Blood, Capillary) 10/05/2023 10:35 AM HEAD OF ETHICS AND COMPLIANCE 10/05/2023 10:35 AM HEAD OF ETHICS AND COMPLIANCE Kylah Crum M.D. LAB POCT ORDERABLES - DEVICE [facility] [address] [place] [address], [place] FB60 [facility] [place] [address] [place] [address] documented in this encounter Visit Diagnoses Diagnosis 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 Cardiac Surgery Status Post Bypass Coronary Artery Graft Status Post Prosthesis Aortic Valve Shelter (Current) Anticoagulant Treatment Monitoring For Therapeutic Drug Therapy documented in this encounter Additional Health Concerns Assessment Noted Time PHQ-9 Depression Total Score: 1 09/10/20 2:06 PM CDT documented as of this encounter Care Teams Gift Basket Packer Relationship Specialty Start Date End Date Kylah Crum M.D. [address] [place] [address] [place] [phone] PCP - General Family Medicine 09/28/23 documented as of this encounter
--- OUTSIDE RECORDS SUMMARY | 2023-12-04 12:12 | XMS_ITS | Encounter Summary ---
Author Name Unknown Organization [facility] Address [address] [place] [address] Care Team Providers Care Roof Painter Name Role Phone Kylah Crum M.D. Primary Care Provider [phone] Encounter Details Date Type Department Care Team (Late st Contact Info) Description 10/15/2023 Episode Changes Department of Cardiovascular Medicine in [place], [place] [address] [place] [address] Cony Calzada, CEP [address] [place] [phone] Social History Tobacco Use Types Packs/Day Years [...] your living situation today? I have a [facility] place to live 08/29/2023 Sex and Gender Information Value Date Recorded Sex Assigned at Male 08/29/2023 11:06 AM CDT Gender Identity Male 08/29/2023 11:06 AM CDT Sexual Orientation Straight 08/29/2023 11 :06 AM CDT documented as of this encounter Plan of Treatment Upcoming Encounters Date Type Department Care Team (Latest Contact Info) Description 12/21/2023 10:15 AM SAUSAGE MAKER Clinical Communication Virtual Review in [place], [place] [address] [place] [address] 12/24/2023 2:00 PM SAUSAGE MAKER Comprehensive Visit Department of Cardiovascular Medicine in [place], [place] [address] [place] [phone] Gudelia Soto M.D. [address] [place] [phone] 01/01/2024 3:45 PM SAUSAGE MAKER Comprehensive Visit Division of Hematology in [place], [place] [address] [place] [phone] Billy Segal APRN, C.N.P., D.N.P. [address] [place] [phone] documented as of this encounter Visit Diagnoses Not on filedocumented in this encounter Additional Health Concerns Assessment Noted Time PHQ-9 Depression Total Score: 1 09/10/20 23 2:06 PM CDT documented as of this encounter Care Teams Roof Painter Relationship Specialty Start Date End Date Kylah Crum M.D. [address] [place] [phone] PCP - General Family Medicine 09/28/23 documented as of this encounter
--- OUTSIDE RECORDS SUMMARY | 2023-12-04 12:12 | XMS_ITS | Encounter Summary ---
Author Name Unknown Organization [facility] Address [address] [place] [address] Care Team Providers Care Service Supervisor Name Role Phone Kylah Crum M.D. Primary Care Provider [phone] Reason for Visit * Outpatient (Routine) - Closed Specialty Diagnoses / Procedures Referred By Sebas gimenez Referred To Contact Cardiovascular Surgery Diagnoses 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 Prosthesis Aortic Valve Coronary Artery Disease Without Angina Pectoris Laila Basurto P.A.-CJarrett [address] [place] [phone] [facility] Referral ID Status Reason Start Date Expiration Date Visits Re quested Visits Authorized [id number] Closed 09/24/2023 09/23/2026 1 1 Encounter Details Date Type Department Care Team (Late st Contact Info) Description 10/03/2023 1:30 PM [facility] Telemedicine Department of Cardiovascular Surgery in [place], [place] [address] [place] [phone] Laila Basurto P.AJarrett-C. [address] [place] [phone] Mariama Monk, PUBLIC SPACE ATTENDANT, C.N.P. [address] [place] [phone] Cardiac Surgery Status Post (Primary Dx); Bypass Coronary Artery Graft Status Post; Prosthesis Aortic Valve; 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; Coronary Artery Disease Without Angina Pectoris Social History Tobacco Use Types Packs/Day Years [...] of this encounter Progress Notes * Mariama Monk APRN, C.N.P. - 10/03/2023 1:30 PM CST Jong Harris : 1950 Visit Date: 10/03/23 [id number] VISIT Consult conducted via real-time audio/video technology by Mariama Monk APRN, C.N.P. in [facility] to the patient in Patient's Home SUBJECTIVE Surgical Procedure: Aortic valve replacement using 23 mm OnX [...] is a 73 y.o. male who was scheduled for a routine postoperative follow-up visit via video today. I was logged in for the visit today, but it appeared that he was having some technical difficulties. I was asked to call him instead. After making this plan, it was noted that he would prefer to reschedule to Sunday as he was attending cardiac rehabilitation. ASSESSMENT / PLAN #1 Cardiac Surgery Status Post #2 Bypass Coronary Artery Graft Status Post #3 Prosthesis Aortic Valve At the patient request, the visit was initiated for today will be rescheduled to Sunday. I will reach out to the patient at that time. It appears that he has had follow-up visits with his primary care provider and per discussion with our appointment team today he was at cardiac rehabilitation. Anticoagulation follow- up has been established at home as well. I personally spent 10 minutes in care of the patient today. Time includes [id number] patient care and review of records. Mariama Monk APRN, C.N.P. Y REMOVER documented in this encounter Plan of Treatment Upcoming Encounters Date Type Department Care Team (Latest Contact Info) Description 12/21/2023 10:15 AM PUTTY REMOVER Clinical Communication Virtual Review in [place], [place] 200 [place] [address] 12/24/2023 2:00 PM PUTTY REMOVER Comprehensive Visit Department of Cardiovascular Medicine in [place], [place] [address] [place] [phone] Gudelia Soto M.D. [address] [place] [phone] 01/01/2024 3:45 PM PUTTY REMOVER Comprehensive Visit Division of Hematology in [address] [phone] Billy Segal APRN, C.N.P., D.N.P. [address] [place] [phone] documented as of this encounter Visit Diagnoses Diagnosis Cardiac Surgery Status Post- Primary Bypass Coronary Artery Graft Status Post Prosthesis Aortic Valve 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 Coronary Artery Disease Without Angina Pectoris documented in this encounter Additional Health Concerns Assessment Noted Time PHQ-9 Depression Total Score: 1 09/10/20 2:06 PM CDT documented as of this encounter Care Teams Service Supervisor Relationship Specialty Start Date End Date Kylah Crum M.D. [address] [place] [phone] PCP - General Family Medicine 09/28/23 documented as of this encounter
--- OUTSIDE RECORDS SUMMARY | 2023-12-04 12:13 | XMS_ITS | Encounter Summary ---
Author Name Unknown Organization [facility] Address [address] [place] [address] Care Team Providers Care Child Care Group Leader Name Role Phone Kylah Crum M.D. Primary Care Provider Reason for Referral * Specialty Diagnoses / Procedures Referred By Sebas gimenez Referred To Contact [address] [place] [phone] [facility] Referral ID Status Reason Start Date Expiration Date Visits Re quested Visits Authorized WARE ARCHITECT * Outpatient (Routine) - Authorized Specialty Diagnoses / Procedures Referred By Contact Referred To Contact Hematology / Anticoagulation Diagnoses 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 Cardiac Surgery Status Post Bypass Coronary Artery Graft Status Post Kylah Crum M.D. [address] [place] [phone] Referral ID Status Reason Start Date Expiration Date Visits Requested Visits Authorized [id number] Authorized Specialty Services Required 3 10/01/2025 1 1 Scheduling Instructions Per [facility] warfarin management protocols WARE ARCHITECT Reason for Visit * Reason Onset Date Comments Anticoagulation 10/01/2023 New enrollment Encounter Details Date Type Department Care Team (Latest Contact Info) Description 10/01/2023 Clinical Communication Department of Anticoagulation in [place], [place] [address] [place] [phone] Nidia Kuhn Anticoagulation (New enrollment) Social History Tobacco Use Types Packs/Day Years [...] your living situation today? I have a [facility] place to live 08/29/2023 Sex and Gender Information Value Date Recorded Sex Assigned at Male 08/29/2023 11:06 AM CDT Gender Identity Male 08/29/2023 11:06 AM CDT Sexual Orientation Straight 08/29/2023 11 :06 AM CDT documented as of this encounter Miscellaneous Notes * Telephone Encounter - Nidia Kuhn - 10/01/2023 1:24 PM CST Contacted patient and daughter Fanny alvarenga and welcomed them to the Primary Care Anticoagulation Program. Reviewed that the patient has enough warfarin pills and injectable heparin (if applicable) to take until next INR lab appointment. Discussed INR testing. Patient will monitor INR via point of care (fingerstick). Discussed face to face follow-up via video visit. Patient declined video visit due to phone preferred. They were given the designated phone number for Primary Care Anticoagulation Program at [phone] from 7:30 am to 4:30 pm. Sunday-Sunday . Patient verbalized understanding of needing to call the Anticoagulation Program for warfarin dosing at the scheduled time for their nurse visit, as indicated on their Patient Appointment Guide (PAG). Discussed with patient the option of leaving a detailed message on patient???s voicemail. Patient understands permission for anticoagulation staff to leave a detailed message will not unless patient asks anticoagulation staff to discontinue leaving a detailed message on voicemail. Patient provided permission for anticoagulation staff to leave a detailed message on voicemail. Education: Offered to patient to attend the Warfarin: Managing Your Medication Patient Education Class. Patient declined attending today but may attend in the future. Order is available for patient to schedule class when they are ready. Patient Education packet for patients new to warfarin was sent via portal to the patient today. WARE ARCHITECT * Telephone Encounter - Ralf Peralta R.N. - 10/01/2023 9:37 AM SOFTWARE ARCHITECT Reason for admit: Stenosis Aortic Valve, acquired Admit-Discharge dates: 09/19/23- Any new diagnoses pertinent to anticoagulation?: New enrollment - episode updated. Medication changes: New: amiodarone taper; lasix, glipizide, metoprolol, warfarin Discontinued: metformin Tracker updated with inpatient dosing: YES Discharge AVS recommendations for: - Warfarin dosin mg daily - INR recheck: 09-28 Did patient have a previously planned procedure during admission? No Nursing judgement considerations: N/A Sent to pharmacy for review: NO See anticoagulation tracker for final plan. WARE ARCHITECT * Telephone Encounter - Nidia Kuhn - 10/01/2023 8:46 AM CST New Primary Care Anticoagulation referral order received. Has the patient previously been enrolled in the Anticoagulation Program? No, Patient has not been previously enrolled in the Anticoagulation Program Does the patient have a Primary Care Provider (PCP) in the [facility] region and have they received care from a Primary Care provider within the last 3 years? OR does the patient have an appointment to establish care? Yes. Did the patient dismiss/discharge from the hospital? Yes: Going home. Is the enrollment order from PCP? No, order requested from PCP.. Are there bolded items/changes in the enrollment order? No, this is a New enrollment Is CCM active or in process? No. Is the next PT/INR date noted or scheduled within 4 days? Yes, INR scheduled for this date 10/01/23. Are these medications on the patient's medication list? (Warfarin/Jantoven, Enoxaparin (Lovenox), Heparin)? Yes: Warfarin/Jantoven WARE ARCHITECT documented in this encounter Plan of Treatment Upcoming Encounters Date Type Department Care Team (Latest Contact Info) Description 12/21/2023 10:15 AM SOFTWARE ARCHITECT Clinical Communication Virtual Review in [place], [place] [address] [place] [address] 12/24/2023 2:00 PM SOFTWARE ARCHITECT Comprehensive Visit Department of Cardiovascular Medicine in [place], [place] [address] [place] [phone] Gudelia Soto M.D. [address] [place] [phone] 01/01/2024 3:45 PM SOFTWARE ARCHITECT Comprehensive Visit Division of Hematology in [place], [place] [address] [place] [phone] Billy Segal APRN, C.N.P., D.N.P. 200 [place] [phone] Scheduled Referrals Name Type Priority Associated Diagnoses Order Schedule Anticoagulation monitoring consult (clinic) Outpatient Referral Routine 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 Cardiac Surgery Status Post Bypass Coronary Artery Graft Status Post Ordered: 10/01/2023 Warfarin Management: Provides an overview of oral anticoagulant therapy with a focus on Warfarin Outpatient Referral Routine 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 Cardiac Surgery Status Post Bypass Coronary Artery Graft Status Post Prosthesis Aortic Valve Expected: 10/01/2023 (Approximate), Expires: 01/01/2025 documented as of this encounter Results * INR Reflex, POCT, Blood (10/01/2023 12:02 PM SOFTWARE ARCHITECT) INR Reflex, POCT, B 2.0 10/01/2023 12:01 PM SOFTWARE ARCHITECT [id number] Comment: ----ADDITIONAL INFORMATION---- Standard intensity warfarin therapeutic range: 2.0 to 3.0 ?? High intensity warfarin therapeutic range: 2.5 to 3.5 Blood (Blood, Capillary) 10/01/2023 12:02 PM SOFTWARE ARCHITECT 10/01/2023 12:01 PM SOFTWARE ARCHITECT Kylah Crum M.D. LAB POCT ORDERABLES - DEVICE Performing Organization Address City/State/[facility] Co de Phone Number [facility] [address] [place] [address], [facility] [id number] [facility] in [place] [address] [place] [address] documented in this encounter Visit Diagnoses Diagnosis 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- Primary Cardiac Surgery Status Post Bypass Coronary Artery Graft Status Post Prosthesis Aortic Valve Residential (Current) Anticoagulant Treatment Monitoring For Therapeutic Drug Therapy documented in this encounter Additional Health Concerns Assessment Noted Time PHQ-9 Depression Total Score: 1 09/10/20 23 2:06 PM CDT documented as of this encounter Care Teams Child Care Group Leader Relationship Specialty Start Date End Date Kylah Crum M.D. [address] [place] [address] [place] [phone] PCP - General Family Medicine 09/28/23 documented as of this encounter
--- OUTSIDE RECORDS SUMMARY | 2023-12-04 12:13 | XMS_ITS | Encounter Summary ---
Author Name Unknown Organization [facility] Address [address] [place] [address] Care Team Providers Care Tripe Finisher Name Role Phone Elsewhere, Pcp Primary Care Provider Unavailabl e Encounter Details Date Type Department Care Team ([facility] st Contact Info) Description 09/27/2023 Clinical Communication [facility] [address] [place] [phone] Sarah Miller M.D., M.P.H. [address] [place] [phone] Social History Tobacco Use Types Packs/Day Years [...] your living situation today? I have a [facility] place to live 08/29/2023 Sex and Gender Information Value Date Recorded Sex Assigned at Male 08/29/2023 11:06 AM CDT Gender Identity Male 08/29/2023 11:06 AM CDT Sexual Orientation Straight 08/29/2023 11 :06 AM CDT documented as of this encounter Plan of Treatment Upcoming Encounters Date Type Department Care Team (Latest Contact Info) Description 12/21/2023 10:15 AM COMMERCIAL REPORTER Clinical Communication Virtual Review in [place], [place] [address] [place] [address] 12/24/2023 2:00 PM COMMERCIAL REPORTER Comprehensive Visit Department of Cardiovascular Medicine in [place], [place] [address] [place] [phone] Gudelia Soto M.D. [address] [place] [phone] 01/01/2024 3:45 PM COMMERCIAL REPORTER Comprehensive Visit Division of Hematology in [place], [place] [address] [place] [phone] Billy Segal APRN, C.N.P., D.N.P. [address] [place] [phone] documented as of this encounter Visit Diagnoses Diagnosis 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- Primary Device Cardiac Status Post documented in this encounter Additional Health Concerns Assessment Noted Time PHQ-9 Depression Total Score: 1 09/10/20 23 2:06 PM CDT documented as of this encounter Care Teams Tripe Finisher Relationship Specialty Start Date End Date Elsewhere, Pcp PCP - General Internal Medicine 08/19/23 09/27/23 documented as of this encounter
--- OUTSIDE RECORDS SUMMARY | 2023-12-04 12:13 | XMS_ITS | Encounter Summary ---
Author Name Unknown Organization [facility] Address [address] [place] [address] Care Team Providers Care Enamel Shader Name Role Phone Kylah Crum M.D. Primary Care Provider Encounter Details Date Type Department Care Team (Latest Contact Info) Description 09/28/2023 1:33 PM PREMIUM NOTE INTEREST CALCULATOR CLERK - 09/28/2023 11:59 PM [facility] Hospital Encounter Department of Laboratory Medicine in [address] [phone] Sammi Kothari, PIERRE, C.N.P., D.N.P. [address] [place] [phone] Prosthesis Aortic Valve Discharge Disposition: Home or Self Care Social [...] your living situation today? I have a [facility] place to live 08/29/2023 Sex [...] (Latest Contact Info) Description 12/21/2023 10:15 AM PREMIUM NOTE INTEREST CALCULATOR CLERK Clinical Communication Virtual Review in [place], [place] 200 [place] [address] 12/24/2023 2:00 PM PREMIUM NOTE INTEREST CALCULATOR CLERK Comprehensive Visit Department of Cardiovascular Medicine in [address] [phone] Gudelia Soto M.D. [address] [place] [phone] 01/01/2024 3:45 PM PREMIUM NOTE INTEREST CALCULATOR CLERK Comprehensive Visit Division of Hematology in [place], [place] [address] [place] [phone] Billy Segal APRN, C.N.PJarrett, D.N.P. [address] [place] [phone] documented as of this encounter Procedures Procedure Name Priority Date/Time Associated Diagnosis Comments PROTHROMBIN TIME (PT), P Routine 09/28/2023 1:41 PM PREMIUM NOTE INTEREST CALCULATOR CLERK Prosthesis Aortic Valve documented in this encounter Results * (ABNORMAL) Prothrombin Time (PT) (09/28/2023 1:41 PM PREMIUM NOTE INTEREST CALCULATOR CLERK) Prothrombin Time, P 18.4(H) 9.4 - 12.5 sec 09/28/2023 4:01 PM PREMIUM NOTE INTEREST CALCULATOR CLERK OWAT INR 1.6 0.9 - 1.1 09/28/2023 4:01 PM PREMIUM NOTE INTEREST CALCULATOR CLERK OWAT Comment: ----ADDITIONAL INFORMATION---- Standard intensity warfarin therapeutic range: 2.0 to 3.0 ?? High intensity warfarin therapeutic range: 2.5 to 3.5 Blood (Blood, Venous) 09/28/2023 1:41 PM PREMIUM NOTE INTEREST CALCULATOR CLERK 09/28/2023 3:32 PM PREMIUM NOTE INTEREST CALCULATOR CLERK Sammi Kothari APRN, C.N.P., D.N.P. LAB BL OOD ADD-ON [facility] [address] [place] [address], [place] OW[facility] in [place] [address] [place] [address] documented in this encounter Visit Diagnoses Diagnosis Prosthesis Aortic Valve documented in this encounter Additional Health Concerns Assessment Noted Time PHQ-9 Depression Total Score: 1 09/10/20 23 2:06 PM CDT documented as of this encounter Care Teams Enamel Shader Relationship Specialty Start Date End Date Kylah Crum M.D. [address] [place] [address] [place] [phone] PCP - General Family Medicine 09/28/23 documented as of this encounter
--- OUTSIDE RECORDS SUMMARY | 2023-12-04 12:13 | XMS_ITS | Encounter Summary ---
Author Name Unknown Organization [facility] Address [address] [place] [address] Care Team Providers Care Avionics Mechanic Name Role Phone Kylah Crum M.D. Primary Care Provider [phone] Reason for Visit * Outpatient (Routine) - Canceled Specialty Diagnoses / Procedures Referred By Sebas t Referred To Contact Anticoagulation Diagnoses 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 Cardiac Surgery Status Post Bypass Coronary Artery Graft Status Post Prosthesis Aortic Valve Kylah Crum M.D. [address] [place] [address] [facility] Referral ID Status Reason Start Date Expiration Date V isits Requested Visits Authorized [id number] Canceled 10/01/2023 09/30/2026 300 300 Encounter Details Date Type Department Care Team (Latest Contact Info) Description 10/01/2023 3:30 PM FRUIT DRYER Anticoagulation Visit Department of Anticoagulation in [place], [place] [address] [place] [address] Kylah Crum M.D. [address] [place] [address] Photographic Colorist (Current) Anticoagulant Treatment (Primary Dx); Coronary Arterial [...] your living situation today? I have a [facility] place to live 08/29/2023 Sex and Gender Information Value Date Recorded Sex Assigned at Male 08/29/2023 11:06 AM CDT Gender Identity Male 08/29/2023 11:06 AM CDT Sexual Orientation Straight 08/29/2023 11 :06 AM CDT documented as of this encounter Patient Instructions * Patient Instructions* Lola Cat R.N. - 10/01/2023 3:30 PM FRUIT DRYER Your next INR will be Thursday October 05, 2023. You will need to call the Anticoagulation Program for warfarin dosing at the scheduled time for your nurse visit, as indicated on your Patient Appointment Guide (PAG). To reschedule your appointment or for questions about your warfarin, please call Primary Care Anticoagulation Program at [phone] from 7:30 am to 4:30 pm. Sunday-Sunday [...] if you start any herbal or other [id number] product (check with your doctor, a nurse, or pharmacist). If you change your diet significantly. If you decide to stop or start using tobacco or alcohol. If you notice unusual bruising or bleeding. If you notice dark, tarry, or bright red stools or blood in your urine. If you have a painful and swollen calf. T DRYER documented in this encounter Progress Notes * Lola Cat R.N. - 10/01/2023 3:30 PM CST Patient had first visit with Primary Care Anticoagulation Program RN today. Reviewed that the patient started taking Warfarin in the hospital and that Warfarin therapy will continue indefinitely. Reviewed that the patient has pink (1 mg) tablets and has been taking Warfarin, 1 mg on 09/26 and 09/27. He is not sure if he took 1 mg or 2 mg on 09/28. Confirmed he took 2 mg on 09/29 and 09/30. Hehas already taken 2 mg this AM. Advised to switch to dinner time starting tomorrow Tuesday 10/02. Reviewed that the patient is not using an injectable anticoagulant at this time. Current medications were not reconciled because patient refused due to completing medication reconciliation recently with primary care team. [place] education points covered today were: ??Indication for Warfarin and INR goal range. ??How often the patient's INR is checked will vary. ??Importance of the need to talk with the anticoagulation nurse the day of the INR check or day after INR check if a venous draw. ??The tablet strength and the number of tablets patients take each day may change based on their INR results. It is important to take warfarin as instructed. ??Use of a pill box and/or calendar to track doses taken and INR results may be helpful. ??Accessing the After Visit Summary (AVS) is very important. How to access AVS in patient portal, find warfarin dosing, signs and symptoms of bleeding and clotting, and when to contact the AC Program. -Additional education documented in patient education module. Chronic Care Management was discussed with patient and documented in subsequent note. Patient verified knowledge of the designated phone number for Primary Care Anticoagulation Program is [phone] and office hours are from 7:30 am to 4:30 pm. Sunday-Sunday . They were made aware to contact Anticoagulation staff with Warfarin prescription refill needs, upcoming pr ocedures, changes in health status, medication changes, and inaccurate dosing. T DRYER * Lola Cat R.N. - 10/01/2023 3:30 PM CST Home from hospital Sunday09/26/2023. He states his daughter has been helping him. He is using apill box and states he has been taking the Warfarin in the morning. He confirmed there were tabletsin there earlier today and are gone. Today is day 11. He decreased his Amiodarone to 200 mg once a day starting Sunday09/30/2023. He has continued Tylenol as needed taking 2 tabs no more than 3 times a day. His appetite is about half of what it normally is. It was good prior to surgery. He notes his son had his second open heart surgery about 6 weeks before. T DRYER documented in this encounter Plan of Treatment Upcoming Encounters Date Type Department Care Team (Latest Contact Info) Description 12/21/2023 10:15 AM FRUIT DRYER Clinical Communication Virtual Review in [address] [address] 12/24/2023 2:00 PM FRUIT DRYER Comprehensive Visit Department of Cardiovascular Medicine in [address] [phone] Gudelia Soto M.D. [address] [place] [phone] 01/01/2024 3:45 PM FRUIT DRYER Comprehensive Visit Division of Hematology in [address] [phone] Billy Segal APRN, C.N.P., D.N.P. [address] [place] [phone] documented as of this encounter Results * INR Reflex, POCT, Blood (10/05/2023 10:35 AM FRUIT DRYER) INR Reflex, POCT, B 1.7 10/05/2023 10:35 AM FRUIT DRYER [id number] Comment: ----ADDITIONAL INFORMATION---- Standard intensity warfarin therapeutic range: 2.0 to 3.0 ?? High intensity warfarin therapeutic range: 2.5 to 3.5 Blood (Blood, Capillary) 10/05/2023 10:35 AM FRUIT DRYER 10/05/2023 10:35 AM FRUIT DRYER Kylah Crum M.D. LAB POCT ORDERABLES - DEVICE [facility] [address] [place] [address], [facility] FB60 [facility] in [place] [address] [place] [address] documented in this encounter Visit Diagnoses Diagnosis Photographic Colorist (Current) Anticoagulant Treatment- 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 Cardiac Surgery Status Post Bypass Coronary Artery Graft Status Post Prosthesis Aortic Valve Monitoring For Therapeutic Drug Therapy documented in this encounter Additional Health Concerns Assessment Noted Time PHQ-9 Depression Total Score: 1 09/10/20 2:06 PM CDT documented as of this encounter Care Teams Avionics Mechanic Relationship Specialty Start Date End Date Kylah Crum M.D. [address] [place] [address] PCP - General Family Medicine 09/28/23 documented as of this encounter
--- OUTSIDE RECORDS SUMMARY | 2023-12-04 12:13 | XMS_ITS | Encounter Summary ---
Author Name Unknown Organization [facility] Address [address] [place] [address] Care Team Providers Care Crane Hoist Or Lift Operator Name Role Phone Kylah Crum M.D. Primary Care Provider [phone] Reason for Visit * Reason Onset Date Comments Anticoagulation 10/01/2023 CCM enrollment Encounter Details Date Type Department Care Team (Latest Contact Info) Description 10/01/2023 Clinical Communication Department of Anticoagulation in [place], [place] [address] [place] [address] Ralf Peralta RJarrettNJarrett [address] [place] [address] Anticoagulation (CCM enrollment) Social History Tobacco Use Types Packs/Day [...] your living situation today? I have a [facility] place to live 08/29/2023 Sex and Gender Information Value Date Recorded Sex Assigned at Male 08/29/2023 11:06 AM CDT Gender Identity Male 08/29/2023 11:06 AM CDT Sexual Orientation Straight 08/29/2023 11 :06 AM CDT documented as of this encounter Miscellaneous Notes * Telephone Encounter - Lola Cat R.N. - 10/01/2023 4:45 PM LAYOUT MECHANIC Consent for Chronic Care Management (CCM) requiring moderate or high complexity medical decision making. was obtained from the patient. The patient was informed that a charge, based on the level of service, will be billed to their insurance each month. Only one health care provider can provide Chronic Care Management services at a time. Patients have the right to stop Chronic Care Management services at any time by letting their care team know. The patient can contact their insurance company ifthey have any questions on Chronic Care Management coverage or [facility] Patient Account Servicesif they have any questions about their bill. UT MECHANIC documented in this encounter Plan of Treatment Upcoming Encounters Date Type Department Care Team (Latest Contact Info) Description 12/21/2023 10:15 AM LAYOUT MECHANIC Clinical Communication Virtual Review in [place], [place] [address] [place] [address] 12/24/2023 2:00 PM LAYOUT MECHANIC Comprehensive Visit Department of Cardiovascular Medicine in [place], [place] [address] [place] [phone] Gudelia Soto M.D. [address] [place] [phone] 01/01/2024 3:45 PM LAYOUT MECHANIC Comprehensive Visit Division of Hematology in [address] [phone] Billy Segal APRN, C.N.P., D.N.P. [address] [place] [phone] documented as of this encounter Visit Diagnoses Diagnosis 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- Primary Prosthesis Aortic Valve Cardiac Surgery Status Post Bypass Coronary Artery Graft Status Post Tire Manager (Current) Anticoagulant Treatment Monitoring For Therapeutic Drug Therapy documented in this encounter Additional Health Concerns Assessment Noted Time PHQ-9 Depression Total Score: 1 09/10/20 23 2:06 PM CDT documented as of this encounter Care Teams Crane Hoist Or Lift Operator Relationship Specialty Start Date End Date Kylah Crum M.D. [address] [place] [phone] PCP - General Family Medicine 09/28/23 documented as of this encounter
--- OUTSIDE RECORDS SUMMARY | 2023-12-04 12:13 | XMS_ITS | Encounter Summary ---
Author Name Unknown Organization [facility] Address [address] [place] [phone] Care Team Providers Care Line Installation Supervisor Name Role Phone Kylah Crum M.D. Primary Care Provider Encounter Details Date Type Department Care Team ([facility] st Contact Info) Description 09/28/2023 Clinical Communication [facility]ST [facility] [address] [place] [phone] Sarah Miller M.D., M.P.H. [address] [place] [phone] Social History Tobacco Use Types Packs/Day Years [...] the money to buy more. Never true 10/18/20 23 Within the past 12 months, t [...] your living situation today? I have a [facility] place to live 08/29/2023 Sex and Gender Information Value Date Recorded Sex Assigned at Male 08/29/2023 11:06 AM CDT Gender Identity Male 08/29/2023 11:06 AM CDT Sexual Orientation Straight 08/29/2023 11 :06 AM CDT documented as of this encounter Plan of Treatment Upcoming Encounters Date Type Department Care Team (Latest Contact Info) Description 12/21/2023 10:15 AM ANIMAL CARE SPECIALIST Clinical Communication Virtual Review in [place], [place] [address] [place] [address] 12/24/2023 2:00 PM ANIMAL CARE SPECIALIST Comprehensive Visit Department of Cardiovascular Medicine in [place], [place] [address] [place] [phone] Gudelia Soto M.D. [address] [place] [phone] 01/01/2024 3:45 PM ANIMAL CARE SPECIALIST Comprehensive Visit Division of Hematology in [place], [place] [address] [place] [phone] Billy Segal APRN, C.N.P., D.N.P. [address] [place] [address] documented as of this encounter Results * (ABNORMAL) Prothrombin Time (PT) (09/28/2023 1:41 PM ANIMAL CARE SPECIALIST) Prothrombin Time, P 18.4(H) 9.4 - 12.5 sec 09/28/2023 4:01 PM ANIMAL CARE SPECIALIST OWAT INR 1.6 0.9 - 1.1 09/28/2023 4:01 PM ANIMAL CARE SPECIALIST OWAT Comment: ----ADDITIONAL INFORMATION---- Standard intensity warfarin therapeutic range: 2.0 to 3.0 ?? High intensity warfarin therapeutic range: 2.5 to 3.5 Blood (Blood, Venous) 09/28/2023 1:41 PM ANIMAL CARE SPECIALIST 09/28/2023 3:32 PM ANIMAL CARE SPECIALIST Radha Yanes APRNN.P., D.N.P. LAB BL OOD ADD-ON [facility] [address] [place] [address], [facility] OWAT [facility] in [place] [address] [place] [address] documented in this encounter Visit Diagnoses Diagnosis 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- Primary Prosthesis Aortic Valve documented in this encounter Additional Health Concerns Assessment Noted Time PHQ-9 Depression Total Score: 1 09/10/20 23 2:06 PM CDT documented as of this encounter Care Teams Line Installation Supervisor Relationship Specialty Start Date End Date Kylah Crum M.D. [address] [place] [address] [place] [phone] PCP - General Family Medicine 09/28/23 documented as of this encounter
--- OUTSIDE RECORDS SUMMARY | 2023-12-04 12:13 | XMS_ITS | Encounter Summary ---
Author Name Unknown Organization [facility] Address [address] [place] [address] Care Team Providers Care Psych Rn Name Role Phone Kylah Crum M.D. Primary Care Provider Reason for Referral * Outpatient (Routine) - Authorized Specialty Diagnoses / Procedures Referred By Contact Referred To Contact Cardiovascular Diseases / Cardiovascular Disease Diagnoses Cardiac Surgery Status Post 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 Prosthesis Aortic Valve Bypass Coronary Artery Graft Status Post Kylah Crum M.D. [address] [place] [address] [facility] Referral ID Status Reason Start Date Expiration Date V isits Requested Visits Authorized [id number] Authorized 10/01/2023 09/30/2024 1 1 K UNLOADER * Outpatient (Routine) - Closed Specialty Diagnoses / Procedures Referred By Contac t Referred To Contact Nephrology and Hypertension Diagnoses Chronic Kidney Disease Stage 4 Glomerular Filtration Rate 15-29 (HCC) Procedures Nephrology - Chronic renal failure eConsult Kylah Crum M.D. [address] [place] [address] [facility] Referral ID Status Reason Start Date Expiration Date Visits Re quested Visits Authorized [id number] Closed 10/01/2023 09/30/2024 1 1 K UNLOADER Reason for Visit * Reason Comments Post Hospital Follow-up Cardiac 09/19 * Appointment Request (Routine) - Closed Specialty Diagnoses / Procedures Referred By Contjackelin t Referred To Contact Family Medicine Referral ID Status Reason Start Date Expiration Date Visits Re quested Visits Authorized [id number] Closed 09/28/2023 09/27/2024 1 1 Encounter Details Date Type Department Care Team (Bianca st Contact Info) Description 10/01/2023 11:00 AM TRUCK UNLOADER Office Visit Department of Family Medicine, [facility], in [place], [place] [address] [place] [phone] Kylah Crum M.D. [address] [place] [phone] Chronic Kidney Disease Stage 4 Glomerular Filtration Rate 15-29 (HCC) (Primary Dx); Cardiac Surgery Status Post; 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; Prosthesis Aortic Valve; Bypass Coronary Artery Graft Status Post; Diabetes Mellitus Type 2 (HCC); Atrial Fibrillation Unspecified (HCC); Hypertension And Chronic Kidney Disease Stage 1 To 4; Hyperlipidemia; Anemia Iron Deficiency Social History Tobacco Use Types Packs/Day Years [...] living situation today? I have a [facility] place to live 08/29/2023 Sex and Gender Information Value Date Recorded Sex Assigned at Male 08/29/2023 11:06 AM CDT Gender Identity Male 08/29/2023 11:06 AM CDT Sexual Orientation Straight 08/29/2023 11 :06 AM CDT documented as of this encounter Last Filed Vital Signs Vital Sign Reading Time Taken Comments Blood Pressure 108/65 10/01/2023 11:08 AM TRUCK UNLOADER aveage Pulse 76 10/01/2023 11:08 AM TRUCK UNLOADER Temperature 36.1 ??C (96.9 ??F) 10/01/2023 1 1:08 AM TRUCK UNLOADER Respiratory Rate 20 10/01/2023 11:0 8 AM TRUCK UNLOADER Oxygen Saturation 98% 10/01/2023 11: 08 AM TRUCK UNLOADER Inhaled Oxygen Concentration - - Weight 90.2 kg (198 lb 11.9 oz) 023 11:08 AM TRUCK UNLOADER Height 172.4 cm (5' 7.87) 10/01/2023 1 1:08 AM TRUCK UNLOADER Body Mass Index 30.33 10/01/2023 11:08 AM TRUCK UNLOADER documented in this encounter Progress Notes * Kylah Crum M.D. - 10/01/2023 11:00 AM CST Progress Note This is a post hospital discharge visit Hospital: [facility] Admission Date: 09/19/2023 Discharge Date 09/26/2023 PRINCIPAL DIAGNOSIS Stenosis Aortic Valve Acquired HOSPITAL COURSE Jong Harris is a 73 y.o. male admitted on 09/19/2023 for coronary artery bypass grafting x 1, mechanical aortic valve replacement, MAZE, and left atrial appendage ligation with Dr. Miller. Comorbidities include severe aortic valve stenosis, hypertension, chronic kidney disease stage 3, hyperlipidemia, BPH, iron deficiency anemia, anemia of CKD, DMTII, h/o CVA, and paroxysmal A fib. Hospital Course OR: Just after surgery and sternal closure [...] stable. Patientdeclined SNF placement. Discharged home 09/26. Today at the clinic: Patient presented to the clinic accompanied by his daughter. He stated that he has been doing well since his discharge. He reported that he continued to have shortness O breath with exertion. He stated that he started to ambulate as tolerated and rest if he feels short of breath. He denies any chest pain, palpitation, weight gain, worsening of his leg swelling, abdominal pain, diarrhea, constipation, headache, upper lower extremity weakness or numbness. He lives with his in [place]. No Known Allergies Current Outpatient Medications: acetaminophen (TYLENOL) 500 mg tablet, Take 1,000 mg by mouth every 6 (six) hours as needed for pain., Disp: , Rfl: amiodarone (PACERONE) 200 mg tablet, Take 1 tablet (200 mg total) by mouth 2 (two) times a day for 2 days, THEN 1 tablet (200 mg total) daily., Disp: 34 tablet, Rfl: 0 aspirin 81 mg chewable tablet, Chew 1 tablet (81 mg total) daily., Disp: , Rfl: atorvastatin (LIPITOR) 80 mg tablet, Take 1 tablet (80 mg total) by mouth at bedtime., Disp: , Rfl: cholecalciferol 10 mcg (400 Unit) tablet, Take 10 mcg by mouth daily., Disp: , Rfl: cyanocobalamin 2,000 mcg tablet, Take 2,000 mcg by mouth daily., Disp: , Rfl: ferrous sulfate 325 mg (65 mg iron) DR tablet, Take 65 mg of iron by mouth daily., Disp: , Rfl: finasteride (PROSCAR) 5 mg tablet, Take 1 tablet (5 mg total) by mouth daily., Disp: , Rfl: furosemide (LASIX) 20 mg tablet, Take 1 tablet (20 mg total) by mouth daily for 10 days., Disp: 10 tablet, Rfl: 0 glipiZIDE (GLUCOTROL XL) 2.5 mg 24 hr tablet, Take 1 tablet (2.5 mg total) by mouth daily with breakfast., Disp: 30 tablet, Rfl: 0 metoprolol tartrate (LOPRESSOR) 25 mg tablet, Take 1 tablet (25 mg total) by mouth 2 (two) times a day., Disp: 60 tablet, Rfl: 0 rOPINIRole (REQUIP) 0.5 mg tablet, Take 1 tablet (0.5 mg total) by mouth 3 (three) times a day., Disp: , Rfl: tamsulosin (FLOMAX) 0.4 mg 24 hr capsule, Take 1 capsule (0.4 mg total) by mouth at bedtime., Disp:, Rfl: warfarin (JANTOVEN) 1 mg tablet, Please take 1 tablet (1 mg) by mouth daily on 09/26 and 09/27. Recheck INR on 09/28 with dosing to follow per PCP., Disp: 100 tablet, Rfl: 0 pantoprazole (PROTONIX) 40 mg EC tablet, Take 1 tablet (40 mg total) by mouth every morning before breakfast. (Patient not taking: Reported on 10/01/2023), Disp: , Rfl: Past Medical History: Diagnosis Date Acidosis Lactic 09/20/2023 Acquired Aortic Valve Disorder 09/19/2023 Aphasia 04/11/2019 Atrial Fibrillation Unspecified (HCC) Basal Cell Carcinoma Skin Other Parts Face 08/19/2023 Diabetes Mellitus Type 2 (HCC) Hyperlipidemia Hypertension NOS Murmur Heart Pain Shoulder Right 04/11/2019 Squamous Cell Carcinoma Skin Other Parts Face 08/19/2023 Stenosis Aortic Valve Acquired Stroke (HCC) Social History Tobacco Use Smoking status: Former Types: Cigarettes Smokeless tobacco: Never Tobacco comments: Smoked recreationally over 40 years ago - a few cigarettes once in a while. Vaping Use Vaping Use: never used Substance Use Topics Alcohol use: Never Drug use: Yes Types: Other Comment: CBD gummies- stopped 6 weeks ago REVIEW OF SYSTEMS Vitals: 10/01/23 1108 BP: 108/65 BP Location: Left arm Patient Position: Sitting Cuff Size: Regular Pulse: 76 Resp: 20 Temp: 36.1 ??C TempSrc: Temporal SpO2: 98% Weight: 90.2 kg Height: 172.4 cm Constitutional Appearance: He is well-developed. HENT Head: Normocephalic and atraumatic. Right Ear: External ear normal. Left Ear: External ear normal. Nose: Nose normal. Eyes Conjunctiva/sclera: Conjunctivae normal. Pupils: Pupils are equal, round, and reactive to light. Cardiovascular Rate and Rhythm: Normal rate and regular rhythm. Heart sounds: Normal heart sounds. Pulmonary Effort: Pulmonary effort is normal. Breath sounds: Normal breath sounds. Abdominal General: Bowel sounds are normal. Palpations: Abdomen is soft. Musculoskeletal General: Normal range of motion. Cervical back: Normal range of motion and neck supple. Skin General: Skin is warm and dry. Neurological Mental Status: He is alert and oriented to person, place, and time. Deep Tendon Reflexes: Reflexes are normal and symmetric. Jong was seen today for post hospital follow-up. Diagnoses and all orders for this visit: Hypertension Chronic Kidney Disease Stage 4 Glomerular Filtration Rate 15-29 ([facility]) - Nephrology - Chronic renal failure eConsult; Future - Basic Metabolic Panel; Future Blood pressure well controlled. He is currently on metoprolol 25 mg b.i.d.. We discussed that his kidney function test has worsened since his recent procedures. Will refer to nephrology for further evaluation and establish care. Cardiac Surgery Status Post - Post Hospital Visit Primary Care - Cardiovascular Disease - General cardiology consult (clinic); Future 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 - Post Hospital Visit Primary Care - Cardiovascular Disease - General cardiology consult (clinic); Future Prosthesis Aortic Valve - Post Hospital Visit Primary Care - Cardiovascular Disease - General cardiology consult (clinic); Future Bypass Coronary Artery Graft Status Post - Post Hospital Visit Primary Care - Cardiovascular Disease - General cardiology consult (clinic); Future Atrial Fibrillation Unspecified (HCC) Doing fairly well after her discharge. We reviewed his medications. He will continue aspirin 81 mg,metoprolol 25 mg b.i.d., amiodarone 200 g daily and atorvastatin 80 mg daily.. He was also prescribed furosemide 20 mg for 10 days, will end on 10/06/2023. We stressed monitoring his symptoms and weight. His weight today was 90 kg. Will continue with the [facility] to manage his warfarin. Advised to resume lisinopril, given his kidney function test as well as his blood pressure, I would defer for now. Will start cardiac rehab as scheduled. Diabetes Mellitus Type 2 (HCC) Last A1c was 6.2 months ago. He will continue on glipizide XL 2.5 mg daily. Will follow up with him in another visit to review D5 parameters. Hyperlipidemia Continue atorvastatin 80 mg daily. Anemia Iron Deficiency He is currently on iron supplement. Colonoscopy was done in last November according to his note was normal. We will continue monitoring. Will follow up with him in 3-4 weeks. K UNLOADER documented in this encounter Plan of Treatment Upcoming Encounters Date Type Department Care Team (Latest Contact Info) Description 12/21/2023 10:15 AM TRUCK UNLOADER Clinical Communication Virtual Review in [place], [place] [address] [place] [address] 12/24/2023 2:00 PM TRUCK UNLOADER Comprehensive Visit Department of Cardiovascular Medicine in [place], [place] [address] [place] [address] Gudelia Soto M.D. [address] [place] [phone] 01/01/2024 3:45 PM TRUCK UNLOADER Comprehensive Visit Division of Hematology in [place], [place] [address] [place] [phone] Billy Segal APRN, C.N.P., D.N.P. [address] [place] [phone] Scheduled Referrals Name Type Priority Associated Diagnoses Order Schedule Cardiovascular Disease - General cardiology consult (clinic) Outpatient Referral Routine Cardiac Surgery Status Post 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 Prosthesis Aortic Valve Bypass Coronary Artery Graft Status Post Expected: 10/01/2023 (Approximate), Expires: 01/01/2025 documented as of this encounter Results * (ABNORMAL) Basic Metabolic Panel (10/01/2023 12:02 PM TRUCK UNLOADER) Potassium, P 4.5 3.6 - 5.2 mmol/L 10/01/2023 4:33 PM TRUCK UNLOADER OWAT Sodium, P 137 135 - 145 mmol/L 10/01/2023 4:33 PM TRUCK UNLOADER OWAT Chloride, P 99 98 - 107 mmol/L 10/01/2023 4:33 PM TRUCK UNLOADER OWAT Bicarbonate, P 24 22 - 29 mmol/L 10/01/2023 4:33 PM TRUCK UNLOADER OWAT Anion Gap, P 14 7 - 15 10/01/2023 4:33 PM TRUCK UNLOADER OWAT BUN (Blood Urea Nitrogen), P 34(H) 8 - 24 mg/dL 10/01/2023 4:33 PM TRUCK UNLOADER OWAT Creatinine 2.36(H) 0.74 - 1.35 mg/dL 10/01/2023 4:33 PM TRUCK UNLOADER OWAT Estimated GFR (eGFR) 29(L) >=60 mL/min/BSA 10/01/2023 4:33 PM TRUCK UNLOADER OWAT Comment: Estimated GFR calculated using the 2020 CKD_EPI creatinine equation. Calcium, Total, P 8.7(L) 8.8 - 10.2 mg/dL 10/01/2023 4:33 PM TRUCK UNLOADER OWAT Glucose, P 222(H) 70 - 140 mg/dL 10/01/2023 4:33 PM TRUCK UNLOADER OWAT Blood (Blood, Venous) 10/01/2023 12:02 PM TRUCK UNLOADER 10/01/2023 3:43 PM TRUCK UNLOADER Kylah Crum M.D. LAB BLOOD ADD-ON Performing Organization Address City/State/[facility] Co de Phone Number [facility] [address] [place] [address], [facility] OWAT [facility] [place] [address] [place] [address] documented in this encounter Visit Diagnoses Diagnosis Chronic Kidney Disease Stage 4 Glomerular Filtration Rate 15-29 (HCC)- Primary Cardiac Surgery Status Post 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 Prosthesis Aortic Valve Bypass Coronary Artery Graft Status Post Diabetes Mellitus Type 2 (HCC) Atrial Fibrillation Unspecified (HCC) Hypertension And Chronic Kidney Disease Stage 1 To 4 Hyperlipidemia Anemia Iron Deficiency documented in this encounter Additional Health Concerns Assessment Noted Time PHQ-9 Depression Total Score: 1 09/10/20 2:06 PM CDT documented as of this encounter Care Teams Psych Rn Relationship Specialty Start Date End Date Kylah Crum M.D. [address] [place] [phone] PCP - General Family Medicine 09/28/23 documented as of this encounter
--- OUTSIDE RECORDS SUMMARY | 2023-12-04 12:13 | XMS_ITS | Encounter Summary ---
Author Name Unknown Organization [facility] Address [address] [place] [address] Care Team Providers Care House Manager Name Role Phone Kylah Crum M.D. Primary Care Provider Encounter Details Date Type Department Care Team (Latest Contact Info) Description 09/28/2023 Clinical Communication Department of Cardiovascular Surgery in [place], [place] [address] [place] [phone] Sammi Kothari, PIERRE, C.N.P., D.N.P. [address] [place] [address] Social History Tobacco Use Types Packs/Day Years [...] your living situation today? I have a [facility] place to live 08/29/2023 Sex and Gender Information Value Date Recorded Sex Assigned at Male 08/29/2023 11:06 AM CDT Gender Identity Male 08/29/2023 11:06 AM CDT Sexual Orientation Straight 08/29/2023 11 :06 AM CDT documented as of this encounter Miscellaneous Notes * Telephone Encounter - Sammi Kothari, PIERRE, C.N.P., D.N.P. - 09/28/2023 4:36 PM CST This brief writer received a call regarding INR issues. Please see previous communications for more details.This brief writer did call daughter Fanny [phone] regarding the patients INR and dosing. [facility] at [facility] but unable to be dosed. INR today was 1.6. The patient was instructed totake 2 mg (2 tabs) on 09/28, 09/29 and 09/30. We established the patient in the [facility] system and were able to get a referral into the anticogulation clinic who will manage the INR in the future. Next appointment scheduled at the [facility] with INR check on 10/01. MERCE MARKETING SPECIALIST documented in this encounter Plan of Treatment Upcoming Encounters Date Type Department Care Team (Latest Contact Info) Description 12/21/2023 10:15 AM ECOMMERCE MARKETING SPECIALIST Clinical Communication Virtual Review in [place], [place] [address] [place] [address] 12/24/2023 2:00 PM ECOMMERCE MARKETING SPECIALIST Comprehensive Visit Department of Cardiovascular Medicine in [place], [place] [address] [place] [phone] Gudelia Soto M.D. [address] [place] [phone] 01/01/2024 3:45 PM ECOMMERCE MARKETING SPECIALIST Comprehensive Visit Division of Hematology in [place], [place] [address] [place] [phone] Billy Segal APRN, C.N.P., D.N.P. [address] [place] [phone] documented as of this encounter Visit Diagnoses Not on filedocumented in this encounter Additional Health Concerns Assessment Noted Time PHQ-9 Depression Total Score: 1 09/10/20 23 2:06 PM CDT documented as of this encounter Care Teams House Manager Relationship Specialty Start Date End Date Kylah Crum M.D. [address] [place] [phone] PCP - General Family Medicine 09/28/23 documented as of this encounter
--- OUTSIDE RECORDS SUMMARY | 2023-12-04 12:13 | XMS_ITS | Encounter Summary ---
Author Name Unknown Organization [facility] Address [address] [place] [address] Care Team Providers Care Search Specialist Name Role Phone Kylah Crum M.D. Primary Care Provider Encounter Details Date Type Department Care Team (Latest Contact Info) Description 10/01/2023 11:51 AM QUARTZ MINER - 10/01/2023 11:59 PM [facility] Department of Laboratory Medicine in [place], [place] [address] [place] [phone] Kylah Crum M.D. [address] [place] [phone] Chronic Kidney Disease Stage 4 Glomerular Filtration [...] living situation today? I have a [facility] place to live 08/29/2023 Sex and [...] (Latest Contact Info) Description 12/21/2023 10:15 AM QUARTZ MINER Clinical Communication Virtual Review in [place], [place] [address] [place] [address] 12/24/2023 2:00 PM QUARTZ MINER Comprehensive Visit Department of Cardiovascular Medicine in [place], [place] [address] [place] [address] Gudelia Soto M.D. [address] [place] [phone] 01/01/2024 3:45 PM QUARTZ MINER Comprehensive Visit Division of Hematology in [place], [place] [address] [place] [phone] Billy Segal APRN, C.N.P., D.N.P. [address] [place] [phone] documented as of this encounter Procedures Procedure Name Priority Date/Time Associated Diagnosis Comments BASIC METABOLIC PANEL, S/P Routine 10/01/2023 12:02 PM QUARTZ MINER Chronic Kidney Disease Stage 4 Glomerular Filtration Rate 15-29 (HCC) documented in this encounter Results * (ABNORMAL) Basic Metabolic Panel (10/01/2023 12:02 PM QUARTZ MINER) Potassium, P 4.5 3.6 - 5.2 mmol/L 10/01/2023 4:33 PM QUARTZ MINER OWAT Sodium, P 137 135 - 145 mmol/L 10/01/2023 4:33 PM QUARTZ MINER OWAT Chloride, P 99 98 - 107 mmol/L 10/01/2023 4:33 PM QUARTZ MINER OWAT Bicarbonate, P 24 22 - 29 mmol/L 10/01/2023 4:33 PM QUARTZ MINER OWAT Anion Gap, P 14 7 - 15 10/01/2023 4:33 PM QUARTZ MINER OWAT BUN (Blood Urea Nitrogen), P 34(H) 8 - 24 mg/dL 10/01/2023 4:33 PM QUARTZ MINER OWAT Creatinine 2.36(H) 0.74 - 1.35 mg/dL 10/01/2023 4:33 PM QUARTZ MINER OWAT Estimated GFR (eGFR) 29(L) >=60 mL/min/BSA 10/01/2023 4:33 PM QUARTZ MINER OWAT Comment: Estimated GFR calculated using the 2020 CKD_EPI creatinine equation. Calcium, Total, P 8.7(L) 8.8 - 10.2 mg/dL 10/01/2023 4:33 PM QUARTZ MINER OWAT Glucose, P 222(H) 70 - 140 mg/dL 10/01/2023 4:33 PM QUARTZ MINER OWAT Blood (Blood, Venous) 10/01/2023 12:02 PM QUARTZ MINER 10/01/2023 3:43 PM QUARTZ MINER Kylah Crum M.D. LAB BLOOD ADD-ON [facility] [address] [place] [address], [facility] OWAT [facility] in [place] [address] [place] [address] documented in this encounter Visit Diagnoses Diagnosis Chronic Kidney Disease Stage 4 Glomerular Filtration Rate 15-29 (HCC) documented in this encounter Additional Health Concerns Assessment Noted Time PHQ-9 Depression Total Score: 1 09/10/20 23 2:06 PM CDT documented as of this encounter Care Teams Search Specialist Relationship Specialty Start Date End Date Kylah Crum M.D. [address] [place], [place] [address] [place] [phone] PCP - General Family Medicine 09/28/23 documented as of this encounter
--- OUTSIDE RECORDS SUMMARY | 2023-12-04 12:13 | XMS_ITS | Encounter Summary ---
Author Name Unknown Organization [facility] [place] Address [address] [place] [address] Care Team Providers Care Sprayer Automatic Spray Machine Name Role Phone Kyalh Crum M.D. Primary Care Provider [phone] Reason for Referral * Outpatient (Routine) - Authorized Specialty Diagnoses / Procedures Referred By Contact Referred To Contact Hematology / Anticoagulation Diagnoses Cardiac Surgery Status Post 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 Prosthesis Aortic Valve Bypass Coronary Artery Graft Status Post Sammi Kothari APRN C.N.P., D.N.P. [address] [place] [phone] Referral ID Status Reason Start Date Expiration Date Visits Requested Visits Authorized [id number] Authorized Specialty Services Required 09/28/2025 1 1 Scheduling Instructions Per [facility] warfarin management protocols ANICAL INTEGRITY SPECIALIST * Outpatient (Routine) - Closed Specialty Diagnoses / Procedures Referred By Sebas gimenez Referred To Contact Diagnoses Cardiac Surgery Status Post 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 Prosthesis Aortic Valve Bypass Coronary Artery Graft Status Post Sammi Kothari APRN, C.N.P., D.N.P. [address] [place] [phone] [facility] Referral ID Status Reason Start Date Expiration Date Visits Re quested Visits Authorized [id number] Closed 09/28/2023 09/27/2026 1 1 Scheduling Instructions We will be contacting you with more information on this referral. An appointment will be scheduled for you. More information is listed below. ANICAL INTEGRITY SPECIALIST Encounter Details Date Type Department Care Team (Late st Contact Info) Description 09/28/2023 Clinical Communication [facility] [address] [place] [phone] Sarah Miller M.D., M.P.H. [address] [place] [address] Social History Tobacco Use Types Packs/Day Years [...] your living situation today? I have a [facility] place to live 08/29/2023 Sex and Gender Information Value Date Recorded Sex Assigned at Male 08/29/2023 11:06 AM CDT Gender Identity Male 08/29/2023 11:06 AM CDT Sexual Orientation Straight 08/29/2023 11 :06 AM CDT documented as of this encounter Plan of Treatment Upcoming Encounters Date Type Department Care Team (Latest Contact Info) Description 12/21/2023 10:15 AM MECHANICAL INTEGRITY SPECIALIST Clinical Communication Virtual Review in [place], [place] [address] [place] [address] 12/24/2023 2:00 PM MECHANICAL INTEGRITY SPECIALIST Comprehensive Visit Department of Cardiovascular Medicine in [place], [place] [address] [place] [phone] Gudelia Soto M.D. [address] [place] [phone] 01/01/2024 3:45 PM MECHANICAL INTEGRITY SPECIALIST Comprehensive Visit Division of Hematology in [address] [phone] Billy Segal APRN, C.N.P., D.N.P. [address] [place] [phone] Scheduled Referrals Name Type Priority Associated Diagnoses Order Schedule Post Hospital Visit Primary Care Outpatient Referral Routine Cardiac Surgery Status Post 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 Prosthesis Aortic Valve Bypass Coronary Artery Graft Status Post Expected: 09/28/2023 (Approximate), Expires: 12/29/2024 Anticoagulation monitoring consult (clinic) Outpatient Referral Routine Cardiac Surgery Status Post 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 Prosthesis Aortic Valve Bypass Coronary Artery Graft Status Post Ordered: 09/28/2023 documented as of this encounter Visit Diagnoses Diagnosis Cardiac Surgery Status Post- 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 Prosthesis Aortic Valve Bypass Coronary Artery Graft Status Post documented in this encounter Additional Health Concerns Assessment Noted Time PHQ-9 Depression Total Score: 1 09/10/20 2:06 PM CDT documented as of this encounter Care Teams Sprayer Automatic Spray Machine Relationship Specialty Start Date End Date Kylah Crum M.D. [address] [place] [phone] PCP - General Family Medicine 09/28/23 documented as of this encounter
--- OUTSIDE RECORDS SUMMARY | 2023-12-04 12:13 | XMS_ITS | Encounter Summary ---
Author Name Unknown Organization [facility] Address [address] [place] [address] Care Team Providers Care Steel Worker Name Role Phone Kylah Crum M.D. Primary Care Provider [phone] Reason for Visit * Reason Onset Date Comments Anticoagulation 09/28/2023 Encounter Details Date Type Department Care Team (Latest Contact Info) Description 09/28/2023 Clinical Communication Department of Anticoagulation in [place], [place] [address] [place] [address] Edna Quinones R.N. [address] [place] [address] Anticoagulation Social History Tobacco Use Types Packs/Day [...] your living situation today? I have a [facility] place to live 08/29/2023 Sex and Gender Information Value Date Recorded Sex Assigned at Male 08/29/2023 11:06 AM CDT Gender Identity Male 08/29/2023 11:06 AM CDT Sexual Orientation Straight 08/29/2023 11 :06 AM CDT documented as of this encounter Miscellaneous Notes * Telephone Encounter - Casandra Loo R.N. - 09/28/2023 3:30 PM ELECTRICAL INSTALLATION SUPERVISOR Information Discussed Called patient to inform him of his options regarding receiving anticoagulation dosing. Patient reports his primary care provider is currently at [place] and at discharge he was scheduled for an INR and post-hospital visit with his PCP in [place], however, patient states he cancelled those appointment because he cannot drive two hours for his care, especially after heart surgery. Patient is currently living in [place] and he plans to establish with a primary care provider in [place] but has not been able to do so yet. I informed patient that since he does not have a [facility] primary care provider, anticoagulationdosing cannot be provided by our department. Patient was recommended to contact his primary care provider in [place] and call the number on his AVS from the hospital if needed. Patient gave me verbal permission to provide this same information to his daughter, Fanny, and provided me with her phone number. I gave Fanny the same information above that we could not providedosing and they would need to contact patients primary care provider or the hospital service who cared for him during his admission. PLAN Disposition/Recommendation: Call primary care provider and/or hospital service for further anticoagulation orders. Information/Education: patient/caller able to teach back Caller agreeable to plan of care: yes The following references were used: [facility] protocols: Anticoagulation Program Enrollment Eligibility Guideline - [facility], [facility] . TRICAL INSTALLATION SUPERVISOR * Telephone Encounter - Edna Quinones R.N. - 09/28/2023 2:58 PM ELECTRICAL INSTALLATION SUPERVISOR Patient and daughter phone into the Anticoagulation department today to receive INR results and warfarin dosing instructions. Patient was discharge home 1 day ago on warfarin and is need of warfarininstructions. He was given anticoagulation phone number from the local lab where he had INR drawn at today. Upon chart review it is found that there is no referral to anticoagulation and patient does not have a [place] primary provider. Patient is not aware of the plan or any follow up appointments with primary or surgeon to discuss warfarin. Patient was told ACO nurse would review further and connect him to plan of care at time of discharge. At this time, handed off to enrollment nurse Casandra Loo to review further and patient will be called back by end of day at [phone] TRICAL INSTALLATION SUPERVISOR documented in this encounter Plan of Treatment Upcoming Encounters Date Type Department Care Team (Latest Contact Info) Description 12/21/2023 10:15 AM ELECTRICAL INSTALLATION SUPERVISOR Clinical Communication Virtual Review in [place], [place] [address] [place] [address] 12/24/2023 2:00 PM ELECTRICAL INSTALLATION SUPERVISOR Comprehensive Visit Department of Cardiovascular Medicine in [place], [place] [address] [place] [address] Gudelia Soto M.D. [address] [place] [address] 01/01/2024 3:45 PM ELECTRICAL INSTALLATION SUPERVISOR Comprehensive Visit Division of Hematology in [place], [place] [address] [place] [address] Billy Segal APRN, C.N.P., D.N.P. [address] [place] [phone] documented as of this encounter Visit Diagnoses Not on filedocumented in this encounter Additional Health Concerns Assessment Noted Time PHQ-9 Depression Total Score: 1 09/10/20 23 2:06 PM CDT documented as of this encounter Care Teams Steel Worker Relationship Specialty Start Date End Date Kylah Crum M.D. [address] [place] [phone] PCP - General Family Medicine 09/28/23 documented as of this encounter
--- OUTSIDE RECORDS SUMMARY | 2023-12-04 12:13 | XMS_ITS | Encounter Summary ---
Author Name Unknown Organization [facility] Address [address] [place] [address] Care Team Providers Care Muck Hauler Name Role Phone Kylah Crum M.D. Primary Care Provider [phone] Encounter Details Date Type Department Care Team (Latest Contact Info) Description 10/01/2023 11:50 AM [facility] Hospital Encounter Department of Laboratory Medicine in [place], [place] [address] [place] [phone] Kylah Crum M.D. [address] [place] [phone] 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 [...] your living situation today? I have a [facility] place to live 08/29/2023 Sex and [...] (Latest Contact Info) Description 12/21/2023 10:15 AM FAMILY DAY CARER Clinical Communication Virtual Review in [place], [place] [address] [place] [address] 12/24/2023 2:00 PM FAMILY DAY CARER Comprehensive Visit Department of Cardiovascular Medicine in [address] [phone] Gudelia Soto M.D. [address] [place] [address] 01/01/2024 3:45 PM FAMILY DAY CARER Comprehensive Visit Division of Hematology in [place], [place] [address] [place] [phone] Billy Segal APRN, C.N.P., D.N.P. [address] [place] [phone] documented as of this encounter Procedures Procedure Name Priority Date/Time Associated Diagnosis Comments INR REFLEX, POCT, B Routine 10/01/2023 1 2:02 PM FAMILY DAY CARER 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 Cardiac Surgery Status Post Bypass Coronary Artery Graft Status Post Prosthesis Aortic Valve documented in this encounter Results * INR Reflex, POCT, Blood (10/01/2023 12:02 PM FAMILY DAY CARER) INR Reflex, POCT, B 2.0 10/01/2023 12:01 PM FAMILY DAY CARER [id number] Comment: ----ADDITIONAL INFORMATION---- Standard intensity warfarin therapeutic range: 2.0 to 3.0 ?? High intensity warfarin therapeutic range: 2.5 to 3.5 Blood (Blood, Capillary) 10/01/2023 12:02 PM FAMILY DAY CARER 10/01/2023 12:01 PM FAMILY DAY CARER Kylah Crum M.D. LAB POCT ORDERABLES - DEVICE [facility] [address] [place] [address], [facility] [id number] [facility] in [place] [address] [place] [address] documented in this encounter Visit Diagnoses Diagnosis 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 Cardiac Surgery Status Post Bypass Coronary Artery Graft Status Post Prosthesis Aortic Valve documented in this encounter Additional Health Concerns Assessment Noted Time PHQ-9 Depression Total Score: 1 09/10/20 23 2:06 PM CDT documented as of this encounter Care Teams Muck Hauler Relationship Specialty Start Date End Date Kylah Crum M.D. [address] [place] [address] [place] [phone] PCP - General Family Medicine 09/28/23 documented as of this encounter
--- OUTSIDE RECORDS SUMMARY | 2023-12-04 12:15 | XMS_ITS | Encounter Summary ---
Author Name Unknown Organization [facility] Address [address] [place] [address] Care Team Providers Care Heel Slugger Name Role Phone Elsewhere, Pcp Primary Care Provider Unavailabl e Reason for Referral * Outpatient (Routine) - Closed Specialty Diagnoses / Procedures Referred By Sebas gimenez Referred To Contact Cardiovascular Surgery Diagnoses 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 Prosthesis Aortic Valve Coronary Artery Disease Without Angina Pectoris Laila Basurto P.A.-C. [address] [place] [phone] [facility] Referral ID Status Reason Start Date Expiration Date Visits Re quested Visits Authorized [id number] Closed 09/24/2023 09/23/2026 1 1 ERY HAND Encounter Details Date Type Department Care Team (Late st Contact Info) Description 09/24/2023 Clinical Communication [facility] [address] [place] [phone] Sarah Miller M.D., M.P.H. [address] [place] [phone] Social History Tobacco Use Types Packs/Day Years Used Date Smoking Tobacco: Former Cigarettes Smokeless Tobacco: Never Comments:Smoked recreational ly over 40 years ago - a few cigarettes once in a while. Alcohol Use Standard Drinks/Week Comments Never 0 (1 standard drink = 0.6 oz pur e alcohol) Overall Financial Resource Strain (CARDIA) [place] Date Recorded How hard is it for [...] living situation today? I have a [facility] place to live 08/29/2023 Sex and Gender Information Value Date Recorded Sex Assigned at Male 08/29/2023 11:06 AM CDT Gender Identity Male 08/29/2023 11:06 AM CDT Sexual Orientation Straight 08/29/2023 11 :06 AM CDT documented as of this encounter Plan of Treatment Upcoming Encounters Date Type Department Care Team (Latest Contact Info) Description 12/21/2023 10:15 AM NURSERY HAND Clinical Communication Virtual Review in [place], [place] [address] [place], [place] [phone] 12/24/2023 2:00 PM NURSERY HAND Comprehensive Visit Department of Cardiovascular Medicine in [place], [place] [address] [place] [address] Gudelia Soto M.D. [address] [place] [address] 01/01/2024 3:45 PM NURSERY HAND Comprehensive Visit Division of Hematology in [place], [place] [address] [place] [address] Billy Segal APRN, C.N.P., D.N.P. [address] [place] [phone] Scheduled Referrals Name Type Priority Associated Diagnoses Order Schedule Cardiovascular Surgery Post Op (clinic) Outpatient Referral Routine 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 Prosthesis Aortic Valve Coronary Artery Disease Without Angina Pectoris Expected: 10/01/2023 (Approximate), Expires: 12/25/2024 documented as of this encounter Visit Diagnoses Diagnosis 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- Primary Prosthesis Aortic Valve Coronary Artery Disease Without Angina Pectoris documented in this encounter Additional Health Concerns Assessment Noted Time PHQ-9 Depression Total Score: 1 09/10/20 2:06 PM CDT documented as of this encounter Care Teams Heel Slugger Relationship Specialty Start Date End Date Elsewhere, Pcp PCP - General Internal Medicine 08/19/23 09/27/23 documented as of this encounter
--- OUTSIDE RECORDS SUMMARY | 2023-12-04 12:15 | XMS_ITS | Encounter Summary ---
Author Name Unknown Organization [facility] Address [address] [place] [address] Care Team Providers Care Wood Heel Flap Rubber Name Role Phone Elsewhere, Pcp Primary Care Provider Unavailabl e Reason for Visit * Auth/Cert (Routine) Specialty Diagnoses / Procedures Referred By Sebas t Referred To Contact Diagnoses Stenosis Aortic Valve Acquired Stenosis Aortic Valve Acquired [I35.0] Procedures PA RPLC AORTIC VLV W PROSTH VLV PA COR ART BYPASS 1 COR JORDAN GRAFT PA REOP COR ART BYP/VALVE PROC PA ENDO SURG W VA HARVEST CABG PA EXCL DAHIANA OPN OTH PX ANY METH REPLACEMENT AORTIC VALVE 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 - REDO LIGATION LEFT ATRIAL APPENDAGE ISOLATION PULMONARY VEIN Referral ID Status Reason Start Date Expiration Date Visits Re quested Visits Authorized [id number] 1 1 Encounter Details Date Type Department Care Team ([facility] Contact Info) Description 09/19/2023 6:45 AM CONTACT CENTER ASSOCIATE Ancillary Procedure [facility]ST [facility] MAIN OR [address] [place] [phone] Sarah Miller M.D., M.P.H. [address] [place] [phone] Social History Tobacco Use Types Packs/Day Years [...] your living situation today? I have a [facility] place to live 08/29/2023 Sex and Gender Information Value Date Recorded Sex Assigned at Male 08/29/2023 11:06 AM CDT Gender Identity Male 08/29/2023 11:06 AM CDT Sexual Orientation Straight 08/29/2023 11 :06 AM CDT documented as of this encounter Plan of Treatment Upcoming Encounters Date Type Department Care Team (Latest Contact Info) Description 12/21/2023 10:15 AM CONTACT CENTER ASSOCIATE Clinical Communication Virtual Review in [place], [place] [address] [place] [address] 12/24/2023 2:00 PM CONTACT CENTER ASSOCIATE Comprehensive Visit Department of Cardiovascular Medicine in [place], [place] [address] [place] [address] Gudelia Soto M.D. [address] [place] [phone] 01/01/2024 3:45 PM CONTACT CENTER ASSOCIATE Comprehensive Visit Division of Hematology in [place], [place] [address] [place] [phone] Billy Segal APRN, C.N.P., D.N.P. [address] [place] [phone] documented as of this encounter Procedures Procedure Name Priority Date/Time Associated Diagnosis Comments (EDMUNDO) - INTRAOPERATIVE WITH COLOR AND LIMITED DOPPLER (PROBE NOT PLACED) Routine 09/19/2023 9:56 AM CONTACT CENTER ASSOCIATE documented in this encounter Results * (EDMUNDO) - INTRAOPERATIVE WITH COLOR AND LIMITED DOPPLER (PROBE NOT PLACED) (09/19/2023 9:56 AM CONTACT CENTER ASSOCIATE) Ejection Fraction [facility] Anatomical Region Laterality Modality Echocardiography 09/19/2023 6:43 AM CONTACT CENTER ASSOCIATE Impressions 09/19/2023 1:45 PM CONTACT CENTER ASSOCIATE PROCEDURE:Transesophageal echocardiogram performed at the request of the primary senior service technician. Transesophageal echocardiogram completed without complications. PRE-BYPASS:Pre-bypass left [...] the Order-Level Documents. Narrative 09/19/2023 1:45 PM CONTACT CENTER ASSOCIATE For the complete report, see the Order-Level [...] post-decannulation. Procedure Note Shahid Deras M.D. - 11/08/2023 For the complete report, see the Order-Level [...] PROCEDURE:Transesophageal echocardiogram performed at the request of [facility] senior [facility] technician. Transesophageal echocardiogram completedwithout complications. PRE-BYPASS:Pre-bypass left ventricular [...] Sarah Miller M.D., M.P.H. CV ECHO PROCE TERI documented in this encounter Visit Diagnoses Not on filedocumented in this encounter Additional Health Concerns Assessment Noted Time PHQ-9 Depression Total Score: 1 09/10/20 2:06 PM CDT documented as of this encounter Care Teams Wood Heel Flap Rubber Relationship Specialty Start Date End Date Elsewhere, Pcp PCP - General Internal Medicine 08/19/23 09/27/23 documented as of this encounter
--- OUTSIDE RECORDS SUMMARY | 2023-12-04 12:15 | XMS_ITS | Encounter Summary ---
Author Name Unknown Organization [facility] Address [address] [place] [address] Care Team Providers Care Freelance Court Reporter Name Role Phone Elsewhere, Pcp Primary Care Provider Unavailabl e Reason for Referral * Outpatient (Routine) - Authorized Specialty Diagnoses / Procedures Referred By Sebas gimenez Referred To Contact Diagnoses Prosthesis Aortic Valve Bypass Coronary Artery Graft Status Post Sarah Miller M.D., M.P.H. [address] [place] [address] Referral ID Status Reason Start Date Expiration Date Visits Requested Visits Authorized [id number] Authorized Continuity of Care 09/24/2023 09/23/2024 1 1 CAL INSTRUMENTS SUPERVISOR Reason for Visit * Auth/Cert (Routine) Specialty Diagnoses / Procedures Referred By Sebas gimenez Referred To Contact Diagnoses Stenosis Aortic Valve Acquired Stenosis Aortic Valve Acquired [I35.0] Procedures ME RPLC AORTIC VLV W PROSTH VLV ME COR ART BYPASS 1 COR JORDAN GRAFT ME REOP COR ART BYP/VALVE PROC ME ENDO SURG W VA HARVEST CABG ME EXCL DAHIANA OPN OTH PX ANY METH REPLACEMENT AORTIC VALVE 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 - REDO LIGATION LEFT ATRIAL APPENDAGE ISOLATION PULMONARY VEIN Referral ID Status Reason Start Date Expiration Date Visits Re quested Visits Authorized [id number] 1 1 Encounter Details Date Type Department Care Team (Latest Contact Info) Description 09/19/2023 5:38 AM OPTICAL INSTRUMENTS SUPERVISOR - 09/26/2023 4:29 PM OPTICAL INSTRUMENTS SUPERVISOR Hospital Encounter [facility], [facility], [facility], Fifth Floor [address] [place] [id number] Sarah Miller M.D., M.P.H. [address] [place] [address] Acquired Aortic Valve Disorder (Primary Dx); Stenosis [...] Treatment Discharge Disposition: Home or Self Care Social [...] your living situation today? I have a [facility] place to live 08/29/2023 Sex and Gender Information Value Date Recorded Sex Assigned at Male 08/29/2023 11:06 AM CDT Gender Identity Male 08/29/2023 11:06 AM CDT Sexual Orientation Straight 08/29/2023 11 :06 AM CDT documented as of this encounter Last Filed Vital Signs Vital Sign Reading Time Taken Comments Blood Pressure 137/59 09/26/2023 3:05 PM OPTICAL INSTRUMENTS SUPERVISOR Pulse 67 09/26/2023 3:05 PM OPTICAL INSTRUMENTS SUPERVISOR Temperature 36.8 ??C (98.2 ??F) 09/26/2023 3:05 PM CS T Respiratory Rate 18 09/26/2023 3:05 PM OPTICAL INSTRUMENTS SUPERVISOR Oxygen Saturation 93% 09/26/2023 3:05 PM OPTICAL INSTRUMENTS SUPERVISOR Inhaled Oxygen Concentration - - Weight 87.9 kg (193 lb 12.6 oz) 09/26/2023 7:46 AM OPTICAL INSTRUMENTS SUPERVISOR Height 173 cm (5' 8.11) 09/26/2023 12: 04 PM OPTICAL INSTRUMENTS SUPERVISOR Body Mass Index 29.37 09/26/2023 7:46 AM OPTICAL INSTRUMENTS SUPERVISOR documented in this encounter Discharge Summaries * Ginette Greene P.A.-C., M.S. - 09/26/2023 2:42 PM CST DISCHARGE SUMMARY BRIEF OVERVIEW Discharge Provider: Sarah Miller M.D. 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 Glomerular Filtration Rate (GFR) 30 To 44 (HCC) Hyperlipidemia On Treatment Benign Prostatic Hyperplasia Without Obstruction Atrial Fibrillation Paroxysmal (HCC) Diabetes Mellitus Type 2 (HCC) Anemia In Chronic Kidney Disease Hemiplegia Dominant Side Right (HCC) Hypertension Essential Primary Stroke Cerebrovascular Accident Personal History 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 Prosthesis Aortic Valve Coronary Artery Disease Without Angina Pectoris Anemia Posthemorrhagic Acute (Blood Loss Anemia) Failure Renal Acute (Acute Kidney Injury) (HCC) Hyperkalemia 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 Therapy Jail Antiplatelet Device Cardiac Status Post Cardiac Surgery Status Post Effusion Pleural Resolved Problems: Acquired Aortic Valve Disorder Acidosis Lactic Thrombocytopenia Secondary Surgery Information This Encounter Past Procedures (09/26/2022 to Today) Date Procedures Providers Loc / Dept 09/19/2023 REPLACEMENT AORTIC VALVE, POSSIBLE AORTIC ROOT ENLARGEMENT. (On-X Conform 23mm Valve), CORONARY ARTERY BYPASS GRAFT X1, VEIN., LIGATION LEFT ATRIAL APPENDAGE., ISOLATION PULMONARY VEIN., ECHOCARDIOGRAM TRANSESOPHAGEAL Sarah Miller M.D., M.P.H.Jenny Stanford M.B., B.Ch., B.A.O. RSTROMB OR DISCHARGE DISPOSITION Home or Self Care [1] ACTIVE ISSUES REQUIRING FOLLOW UP Your primary care provider is your long-term healthcare provider. Please follow-up with them for any medication refills, home care assistance, or an ongoing chronic medical conditions as needed Follow-up recommendations post Cardiac Surgery Follow-up Visit: [facility] via a video visit on 10/03, Primary Care Provider appointment on 10/01 with INR, Primary Merchant Patroller appointment TBD, referral sent. INR appointment on 09/28 at local lab. Follow-up Testing: Post-operative testing per the discretion of the PCP or Merchant Patroller. Monitor INR at discretion of SNF provider for coumadin dosing. Please monitor blood glucose BID due to initiation of glipizide and discontinuation of metformin due to GFR < 30. Continue to monitor kidney func tion closely. Blood Pressure: Metoprolol was initiated and titrated up to 25 mg twice daily prior to dismissal. Please continue to titrate medications as needed for optimal blood pressure control. [place] [employer] Guidelines for individuals with coronary artery disease recommend the following medications: aspirin, a beta-leonora, a statin, and an LEATHA inhibitor. An LEATHA inhibitor was not prescribed at dismissal due to MANJEET. Please initiate if able. Arrhythmia: An oral amiodarone taper was initiated for prevention of atrial fibrillation and was prescribed to continue after dismissal. The amiodarone can be discontinued after completion of the taper if no issues with atrial fibrillation or per recommendations by the Merchant Patroller. Antiplatelet Therapy: Aspirin 81 mg daily recommended to continue life long for coronary artery disease and mechanical valve. Diuretics: Lasix 20 mg daily was prescribed for 10 days. Continue to assess need for reinitiation if (increased swelling, increased weight gain, shortness of breath with presence of pleural effusionsor vascular congestion on chest x-ray). Day of discharge, patient had 1+ bilateral lower extremity edema, weight was +2.9 kg admission weight. Patient should continue utilizing incentive spirometer, coughing and deep breathing until chest congestion and shortness of breath has completely resolved. Other Medications: No other medication recommendations. Antibiotics: Post-operative antibiotic regimen completed, no further antibiotic regimen required. Home Medications: Please see the medication list for continued and discontinued home medications. Home Healthcare Services: No home health services required. Declined SNF placement and patient and family ultimately decided to discharge home with family support. Wound Care: Please assess surgical incision sites for healing. Contact [facility] Cardiovascular Surgery [phone] with any concerns. Anticoagulation: Warfarin (Coumadin initiated) please see the anticoagulation record below for details. ANTICOAGULATION RECORD: INR goal: 2.5 +/- 0.5 Warfarin duration and indication: Lifelong for a mechanical aortic valve. Patient Instructions: Take 1 mg (1 tablets) of warfarin (Coumadin) on 09/26 and 09/27. INR to be checked on 09/28 by the PCP. Warfarin Administrations (last 168 hours) Date/Time Action Medication Dose 09/25/23 1734 Given warfarin tablet 1 mg (COUMADIN) 1 mg 09/24/23 1636 Given warfarin tablet 0.5 mg (COUMADIN) 0.5 mg 09/23/23 1717 No Dose Today warfarin (COUMADIN) NO Dose Today 09/22/23 1736 Given warfarin tablet 2 mg (COUMADIN) 2 mg 09/21/23 1839 Given warfarin tablet 2 mg (COUMADIN) 2 mg INR (no units) Date Value Status 09/26/2023 2.0 Final 09/25/2023 2.0 Final 09/24/2023 2.6 Final 09/23/2023 3.7 Final 09/23/2023 3.2 Final 09/22/2023 1.5 Final 09/21/2023 1.3 Final 09/20/2023 1.1 Final 09/19/2023 1.1 Final 09/19/2023 1.1 Final 09/19/2023 1.5 Final 09/19/2023 1.4 Final Cardiac Rehab: Cardiac Rehabilitation Referral Reason for Visit: Cardiovascular Health Clinic consultation for referral to cardiac rehabilitation. Liaison met with the patient/family to discuss cardiac rehabilitation referral. Patient/family was provided with progressive verbal and printed home-going exercise guidelines. Patient/family understands and agrees with the exercise guidelines. 1. Participation in a Phase II cardiac rehabilitation program is recommended. Patient was informed about what cardiac rehabilitation has to offer and why it is beneficial. The plan of care for the rehabilitation program consists of risk factor modification, monitored and supervised exercise and assistance in the recovery process with ongoing education and support. Patient is interested in attending a cardiac rehabilitation program. 2. Eligibility: CABG and Heart valve surgery 3. Exceptions/exclusions: None. 4. Referral: Patient agreed with referral to a cardiac rehabilitation program. Please see dischargeorder and/or letter for program details. 5. Appropriate referral information will be sent to the receiving cardiac rehabilitation program asapplicable. Patient provided verbal authorization to send relevant materials to the cardiac rehab program. Patient referred to: [facility] Cardiac Rehabilitation [address] [place] [address] Recommend that the patient check with insurance company to verify coverage of the cost of cardiac rehabilitation program visits. COVID-19: Due to the current COVID-19 pandemic, the patient was instructed to monitor for any new fever, cough, shortness of breath, sore throat, diarrhea, respiratory distress, or chills or muscle aches. Theyare to contact [facility] COVID-19 nurse line ([phone]) with any concerns. Reviewed the best measures for reducing the patient risk including: Avoid close contact with anyone who may be exhibiting respiratory symptoms such as coughing and sneezing Maintaining at least 6 feet apart from all other individuals (social distancing) Regular hand washing with soap and water for at least 20 seconds Avoid touching your eyes, nose and mouth Cover your nose and mouth when coughing or sneezing Wear a mask when around other people that properly covers your nose and mouth OUTPATIENT FOLLOWUP [facility] Appointments: Scheduled Appointments 10/03/2023 1:30 PM [facility] Cardiovascular [facility] For appointment details refer to your Patient Appointment Guide. Outside [facility] Appointments: Consults and Follow-ups to Schedule Take a copy of this after visit summary to your appointment(s). [place], [place] October 01, 2023 - Sunday -- 1:15 Arrival - INR blood test at [facility]. October 01, 2023 - Sunday -- 2:10 Arrival - Hospital Follow-Up with, primary care provider Dr. Cresencio Medina, at [facility]. RECOMMENDATIONS: *A referral for a Merchant Patroller will need to be placed by your PCP, please schedule this visit 1-3 months after discharge. [facility] You may have outpatient appointments at [facility] that changed during your hospitalization. Referto your [facility] Patient Appointment Guide (PAG) for the most current schedule of appointments and detailed instructions of tests/procedures. Call [phone], if you did not receive an PAG or need to CANCEL any [facility] appointment(s). DISCHARGE MEDICATIONS: At the time of dismissal, pain medications (examples include oxycodone, Dilaudid, Tramadol, etc.)will be prescribed to you if needed. Duration will be determined on a [id number] basis and will not exceed 2 weeks. Thereafter, you will need to be evaluated by your primary care provider or your surgical team (in person) if operative pain persists Refill of all medications need to be obtained from your primary care provider START taking these medications Details amiodarone (PACERONE) 200 mg tablet Take 1 tablet (200 mg total) by mouth 2 (two) times a day for 2days, THEN 1 tablet (200 mg total) daily. Qty: 34 tablet, Refills: 0 furosemide (LASIX) 20 mg tablet Take 1 tablet (20 mg total) by mouth daily for 5 days. Qty: 5 tablet, Refills: 0 glipiZIDE (GLUCOTROL XL) 2.5 mg 24 hr tablet Take 1 tablet (2.5 mg total) by mouth daily with breakfast. Qty: 30 tablet, Refills: 0 metoprolol tartrate (LOPRESSOR) 25 mg tablet Take 1 tablet (25 mg total) by mouth 2 (two) times a day. Qty: 60 tablet, Refills: 0 warfarin (JANTOVEN) 1 mg tablet Please take 1 mg on 09/26 and 09/27. Recheck INR on 09/28 with dosing to follow per PCP. Qty: 100 tablet, Refills: 0 CONTINUE these medications Details aspirin 81 mg chewable tablet Chew 1 tablet (81 mg total) daily. atorvastatin (LIPITOR) 80 mg tablet Take 1 tablet (80 mg total) by mouth at bedtime. finasteride (PROSCAR) 5 mg tablet Take 1 tablet (5 mg total) by mouth daily. pantoprazole (PROTONIX) 40 mg EC tablet Take 1 tablet (40 mg total) by mouth every morning before breakfast. rOPINIRole (REQUIP) 0.5 mg tablet Take 1 tablet (0.5 mg total) by mouth 3 (three) times a day. tamsulosin (FLOMAX) 0.4 mg 24 hr capsule Take 1 capsule (0.4 mg total) by mouth at bedtime. CONTINUE these medications which have NOT CHANGED Details acetaminophen (TYLENOL) 500 mg tablet Take 1,000 mg by mouth every 6 (six) hours as needed for pain. cholecalciferol 10 mcg (400 Unit) tablet Take 10 mcg by mouth daily. cyanocobalamin 2,000 mcg tablet Take 2,000 mcg by mouth daily. ferrous sulfate 325 mg (65 mg iron) DR tablet Take 65 mg of iron by mouth daily. STOP taking these medications metFORMIN XR (GLUCOPHAGE-XR) 500 mg 24 hr tablet Comments: Reason for Stopping: mupirocin (BACTROBAN) 2 % ointment Comments: Reason for Stopping: DETAILS OF HOSPITAL STAY REASON FOR ADMISSION Stenosis Aortic Valve Acquired Acquired Aortic Valve Disorder HOSPITAL COURSE Jong Harris is a 73 [...] stable. Patientdeclined SNF placement. Discharged home 09/26. SURGICAL PROCEDURE(S) 09/19/2023 Procedure details: Aortic valve replacement using 23 mm OnX conformX CABG x1 with reverse saphenous vein from aorta to PDA Endoscopic vein harvest of left lower extremity Left atrial Maze ablation using RFA clamp Left atrial appendage amputation Cardiopulmonary bypass with cooling to 34?? C Antegrade [place] cardioplegia cardiac arrest Intraoperative echocardiogram Incisional wound VAC Provider Role Sarah Miller M.D., M.P.H. Primary Jenny Stanford M.B., B.Ch., B.A.O. Project Crew Worker Dismissal Vitals: Admission Weight: 85.8 kg Blood pressure 136/62, pulse 68, temperature 36.8 ??C, temperature sourceOral, resp. rate 16, height 173 cm, weight 87.9 kg, SpO2 92%. PHYSICAL EXAM: General: Alert and oriented. No apparent distress. Heart: Regular rate and rhythm, no murmurs or rubs noted. Lungs: Clear to auscultation bilaterally. Abdomen: Soft, nontender. Extremities: Distal pulses intact. 1+ lower extremity edema noted bilaterally. Incision: Wound approximated, clean, dry, and intact. No erythema or other clinical signs of infection. Sternum stable Echocardiogram Hemodynamics Heart Rate: 70 BPM Blood Pressure: [...] to the increased Doppler velocities (8.3 g/dL). IMAGING DX Chest AP or PA and Lateral 2 Views Result Date: 09/25/2023 Impression: Sternotomy with aortic valve replacement. Mild enlargement of cardiac silhouette. Loop recorder. Trace pleural effusions. Azygos fissure. Aortic calcification. Degenerative arthritis thoracic spine. No pneumothorax. No significant change since 09/23/2023. ECG ECG 12 Lead Result Date: 09/25/2023 Normal sinus rhythm Low voltage QRS in limb leads Nonspecific ST and T wave abnormality When compared with ECG of 19-SEP-2023 20:14, No significant change was found Reviewed by MARIELA Dodson LABS Recent Results (from the past 24 hour(s)) Glucose, POCT Collection Time: 09/25/23 5:36 PM Result Value Glucose, POCT, B 197 (H) Site Capillary Last Intake 3-4 hours Glucose, POCT Collection Time: 09/25/23 8:25 PM Result Value Glucose, POCT, B 193 (H) Site Capillary CBC without Differential Collection Time: 09/26/23 6:58 AM Result Value Hemoglobin 8.3 (L) Hematocrit 25.5 (L) Erythrocytes 2.70 (L) MCV 94.4 RBC Distrib Width 13.5 Platelet Count 214 Leukocytes 6.7 Prothrombin Time (PT) Collection Time: 09/26/23 6:58 AM Result Value Prothrombin Time, P 22.0 (H) INR 2.0 Basic Metabolic Panel Collection Time: 09/26/23 6:58 AM Result Value Potassium, S 4.4 Sodium, S 141 Chloride, S 101 Bicarbonate, S 31 (H) Anion Gap 9 BUN (Blood Urea Nitrogen), S 32 (H) Creatinine 2.41 (H) Estimated GFR (eGFR) 28 (L) Calcium, Total, S 8.5 (L) Glucose, S 151 (H) Glucose, POCT Collection Time: 09/26/23 7:55 AM Result Value Glucose, POCT, B 148 (H) Site Capillary Last Intake 3-4 hours Glucose, POCT Collection Time: 09/26/23 11:37 AM Result Value Glucose, POCT, B 190 (H) Site Capillary Last Intake 3-4 hours PATHOLOGY Recent Results (from the past 720 hour(s)) Surgical Pathology, Frozen Lab Status: None Result Value Participated in the Interpretation Amber Gutierrez M.D. -Pathology Resident Report electronically signed by Zohreh De La Cruz M.D. I verify that I have examined all relevant slides/materials for the specimen(s) and rendered or confirmed the diagnosis. Gross Description A. Received fresh labeled with the patient's name, medical record number, and designated as heart, left atrial appendage. It consists of a 2.6 x 2.4 x 1.3 cm atrial appendage without mural thrombus. Lead Generation Representative sections are submitted for microscopy in cassette A1. Grossed by Teresa Qureshi M.S., PA([facility]). B. Received fresh labeled with the patient's name, medical record number and designated as heart, aortic valve. It consists of three cusps, showing moderate calcification, no commissural fusion, and an approximate annular diameter of 3.7 cm.Multiple Lambl excrescences are identified on the cusps, up to 0.1 cm in length. Multiple lunular fenestrations are identified on the cusps, up to 0.2 cm in greatest size. Lead Generation Representative sections are submitted for microscopy in cassette B1, following decalcification. Grossed by Teresa Qureshi M.S., GEORGE([facility]). Block Summary A Heart, left atrial appendage A1 B Heart, aortic valve B1 Interpretation FINAL DIAGNOSIS A. Heart, left atrial appendage, excision: Mild myocyte hypertrophy and mild interstitial fibrosis, without mural thrombus. B. Heart, aortic valve, excision: 1. Degenerative fibrocalcific aortic valve disease, with moderate calcification (evaluated with Verhoeff-Van Gieson stain on block B1). 2. History of severe aortic stenosis and trivial aortic regurgitation. Diagnosis was made via digital imaging. *Note: Due to a large number of results and/or encounters for the requested time period, some results have not been displayed. A complete set of results can be found in Results Review. CONDITION AT DISCHARGE stable Time spent on coordinating discharge was greater than 30 minutes. Discharge instructions were provided to the patient and caregiver(s). CAL INSTRUMENTS SUPERVISOR documented in this encounter Discharge Instructions * Discharge Instructions* Anatoliy Iqbal - 09/26/2023 8:49 AM OPTICAL INSTRUMENTS SUPERVISOR You were discharged from the [facility] Cardiovascular Surgery - [facility] Service. Please identify this service name if you call with questions after hospitalization. CAL INSTRUMENTS SUPERVISOR documented in this encounter Medications at Time of Discharge [...] 09/26/2023 10/31/2023 documented as of this encounter Progress Notes * Eloisa Oro M.S.N., M.H.A., R.N., GRISEL - 09/26/2023 2:04 PM OPTICAL INSTRUMENTS SUPERVISOR SUBJECTIVE program manager slp Eloisa spoke with Mrs. Harris after nursing informed CM that patient no longer wants a halfway facility. The patient has talked with his son and daughter and they will providecare for him at home. OBJECTIVE To have a decision made by patient and family about already accepted halfway facility versus home with family. ASSESSMENT / PLAN Mr. Harris will now discharge home with family . SNF has been cancelled and medical team is aware. Damon Kraus, Alexis, RSammi, GRISEL 09/26/23 CAL INSTRUMENTS SUPERVISOR * Neelam Villalobos O.T., O.Hamida - 09/26/2023 1:43 PM CST Occupational Therapy Acute Hospital Inpatient Treatment SUBJECTIVE Patient's Name: Jong Emilia Steven Referring/Attending Provider: Sarah Miller M.D. Medical Diagnosis: Stenosis Aortic Valve Acquired [I35.0] Acquired Aortic Valve Disorder [I35.9] Reason for Referral: Occupational Therapy Evaluation and Treatment OT general acute Onset Date: 09/19/23 Payor: [facility] / Plan: [employer] MEDICARE ADVANTAGE [place] PPO / Product Type: PPO / History of Present Illness:73 y.o. male admitted on 09/19/2023 for coronary artery bypass grafting x1, mechanical aortic valve replacement, MAZE, and left atrial appendage ligation Family/Caregiver Present: No Patient/Caregiver Goals: Discharge to son's home with family support Patient Comments: Patient presented in bed, agreeable to OT session. Patient with no complaints of pain during session. Precautions Other Precautions: sternal, hx of right residual weakness (LE>UE) and foot drop from prior stroke (approximately 4 years ago) OBJECTIVE Jong's NOHARM modalities were not used during their therapy session. Bathing Bathing Comments: Educated patient on utilizing shower seat at son's home when bathing in order to conserve energy and increase patient's safety. Patient reports son has a walk in shower with a builtin seat however not sure at this time, patient reports if son does not have shower seat then they will procure one. Patient declined hand out for bathroom adaptive equipment as he is familiar with adaptive equipment UE Dressing UE Dressing Comments: Educated patient on safe dressing techniques for ease and to assist with sternal precautions LE Dressing LE Dressing Comments: Patient presented with socks and pants on, however, declined trialing this session; patient reported he put on clothing the other day but received assist with pants Toileting Toileting Location: Toilet Toileting Delivery: Facilitated, Assessed Toileting Level of Assistance: Independent Toileting Comments: simulated toileting task completed, patient able to complete mobility/transfer independently, patient reports he has been completing other steps without assist, reports no furtherconcerns Adaptive Interventions Adaptive Intervention/Education: Patient was educated on sternal precautions and how to apply thoseprecautions to activities of daily living and functional transfers., Patient was educated on activity modification and how to apply those techniques to activities of daily living. Bed Mobility - Supine to Sit # of Assistants: 0 Level of Assistance: Modified Independent Device: Head of bed elevated Bed Mobility - Sit to Supine # of Assistants: 0 Level of Assistance: Modified Independent Device: Head of bed elevated Sit to Stand Transfers # of Assistants: 0 Transfer Surface: Bed, Toilet/Commode Transfer Equipment: Gait belt, Front wheeled walker Level of Assistance: Modified Independent Assessment/Delivery: Assessed, Facilitated Stand to Sit Transfers # of Assistants: 0 Transfer Surface: Bed, Toilet/Commode Transfer Equipment: Gait belt, Front wheeled walker Level of Assistance: Modified independent Assessment/Delivery: Assessed, Facilitated Toilet Transfers # of Assistants: 0 Transfer Approach: To and from, Ambulating Transfer Equipment: Front wheeled walker, Other (comment) (gait belt) Level of Assistance: Modified independent Assessment/Delivery: Assessed, Instructed, Educated, Facilitated Toilet Transfers Comments: instruction on hand placement for sternal precautions with patient able to carry over without assist Education provided today: as noted Outcome Measures AM-[facility] Inpatient Short Form: Putting on and taking off regular lower body clothing?: None Putting on and taking off regular upper body clothing?: None Taking care of personal grooming such as brushing teeth?: None Bathing (including washing, rinsing, drying)?: A Little Toileting, which includes using toilet, bedpan, or urinal?: None Eating meals?: None Daily Activities Raw Score (max 24): 23 Daily Activities Standardized Score: 51.12 Interpretation: Clinicians answer the AM-[facility] Inpatient Short Form based on observed patient activity and/or clinical judgement (ie. patient can be scored without physically performing each activity) Based on scoring guidelines using the raw score value: Those going to home had an average score at or above 18 Those going to facility had an average score at or below 17 Patient was left in bed at end of session with call light in reach, all needs met and questions answered. Assessment Discharge Therapy Needs - OT: No further skilled therapy (pending progress) Skilled therapy can include occupational therapy provided by home health, outpatient clinic, or a post-acute facility. The location of these services is determined by the patient's care team in partnership with patient/family. Level of Care Needed - OT: Assistance with shower transfers, Assistance with dressing, Assistance with meal preparation, Assistance with shopping, Assistance with housekeeping, Assistance with transportation, Assistance with showering/bathing Recommended Adaptive Equipment - OT: Shower chair with back, Transfer tub bench (either shower seator tub bench if not present in son's home) Barriers to Discharge Home: Current functional status Clinical Impression: Patient progressing well, 1 goal achieved this date. Patient completing functional mobility in roomand for toileting, and toileting tasks independently with front wheeled walker. Patient reports he is now planning to discharge to son's home and will have family support for I/ADL's as needed. Discussed son's home/bathroom set up and educated on sternal precautions, application to I/ADL's, and bathroom/home safety including adaptive equipment. Patient with no further questions/concerns at this time regarding I/ADL's or adaptive equipment. Patient slightly below functional baseline however would benefit from continued acute care OT services during hospitalization to address functional deficits, maximize functional independence, and safety. Rehab potential: Mr. Harris has good potential to achieve established occupational therapy goals within the time frame outlined below. Functional Goals: OT Goal #1: Patient and/or caregiver will demonstrate understanding of sternal precautions, activity modifications, and adaptive equipment to optimize safe discharge OT Goal #1 Status: Progressing OT Goal #2: Patient will complete toileting (transfer, clothing management, hygiene) with modified independence to maximize independence and return to prior level of function OT Goal #2 Status: Achieved OT Goal #3: Patient will complete full body dressing with adaptive equipment as needed with modified independence to maximize independence and return to prior level of function OT Goal #3 Status: Ongoing Progress: Progressing toward goals Plan Occupational Therapy Attestation Statement: Patient agrees with the plan of care and goals. OT Frequency: OT Amount: 1 visit per day OT Frequency: 5 times per week OT Inpatient Duration : Until goals are met or hospital discharge Requires Inpatient OT Follow-Up: Yes OT - Next Inpatient Appointment: 09/27/23 Plan: Continue with current plan OT Plan Comments: Next session: full body dressing with item retrieval, review sternal precautions during ADL's Treatment interventions may include: Treatment Interventions: Therapeutic exercise, Therapeutic functional activity, Self-care/home management, Cognitive skills training Billing: Time Spent with Patient Therapeutic Interventions Home Management Training (min): 15 min Time Tracking Total Timed Units (min): 15 min Total Treatment Time (min): 15 min Neelam Villalobos O.T., O.TRomeo CAL INSTRUMENTS SUPERVISOR * Aspen Greene PJarrettTJanae - 09/26/2023 1:32 PM CST Physical Therapy Inpatient Treatment Note SUBJECTIVE Patient's Name: Jong Harris Referring/Attending: Sarah Miller M.D. Medical Diagnosis: Stenosis Aortic Valve Acquired [I35.0] Acquired Aortic Valve Disorder [I35.9] Reason for Referral: PT Evaluate and Treat General PT acute Onset Date: 09/19/23 Payor: [facility] / Plan: [employer] MEDICARE ADVANTAGE [place] PPO / Product Type: PPO / History of Present Illness: 73 y.o. male admitted on 09/19/2023 for coronary artery bypass grafting x 1, mechanical aortic valve replacement, MAZE, and left atrial appendage ligation Family/Caregiver Present: No Patient/Caregiver Goals: Return home Patient Comments: Patient agreeable to therapy. Shared his discharge is on hold today due to changing SNF locations. Precautions Other Precautions: sternal, hx of right residual weakness (LE>UE) and foot drop from prior stroke (approximately 4 years ago) Fall Risk (65 and older) Fall in the last 12 months: Yes (fall yesterday) Did you have an injury with the fall?: No OBJECTIVE Jong's NOHARM modalities were discussed during their therapy session. Vitals monitored throughout session; within normal ranges. Treatment consisted of: Bed Mobility - Supine to Sit # of Assistants: 0 Level of Assistance: Modified Independent Device: Head of bed elevated Bed Mobility - Sit to Supine # of Assistants: 0 Level of Assistance: Modified Independent Device: Head of bed elevated Sit to Stand Transfers # of Assistants: 0 Transfer Surface: Chair Transfer Equipment: Gait belt, Front wheeled walker Level of Assistance: Modified Independent Assessment/Delivery: Assessed, Facilitated Stand to Sit Transfers # of Assistants: 0 Transfer Surface: Bed Transfer Equipment: Gait belt, Front wheeled walker Level of Assistance: Modified independent Assessment/Delivery: Assessed, Facilitated Bed, Chair, Wheelchair Transfers # of Assistants: 0 Transfer Surface: Bed Transfer Approach: To and from, Ambulating Transfer Equipment: Front wheeled walker Level of Assistance: Modified Independent Gait Assessment/Training Distance (m): 50 m Surface: Even, Smooth/hard Device: Gait belt, Front-wheeled walker, No device # of Assistants: 1 Level of Assistance: Supervision/Set-up Quality/Pattern: Guarding Cueing Provided: Verbal Training/Intervention: Reminders to take intentional rest breaks as needed. Not exceed 6/10 on fatigue scale Response: Patient tolerated increased distances well. Fatigue 4/10, No LOB or instability episodes Stairs/Curb # Stairs: 6 Rails: 1, 2 Device: Gait belt # of Assistants: 1 Level of Assistance: Supervision/Set-up, Modified Independent Stair Navigation Pattern-Ascending: Step-to pattern Stair Navigation Lead Foot-Ascending: Left Stair Navigation Pattern-Descending: Step-to pattern Stair Navigation Lead Foot-Descending: Right Cueing Provided: Verbal Training/Intervention: Step to pattern- demonstrated good carryover from yesterday's session Response: Mild fatigue otherwise tolerated well without incident. The patient/family educated on safe transfer techniques with functional mobility/activity. The following coordination of care occurred today: Patient's nurse was contacted and patient's status was discussed Patient was left in bed at end of session with call light in reach, all needs met and questions answered. Outcome Measures AM-[facility] Inpatient Short Form: AM-PAC Basic Mobility (V.2) How much help from another person do you currently need???If the patient hasn't done an activity recently, how much help from another person do you think he/she would needif he/she tried? 1. Turning from your back to your side while in a flat bed without using bedrails?: None 2. Moving from lying on your back to sitting on the side of a flat bed without using bedrails?: None 3. Moving to and from a bed to a chair (including a wheelchair)?: None 4. Standing up from a chair using your arms (e.g., wheelchair, or bedside chair)?: None 5. To walk in hospital room?: None 6. Climbing 3-5 steps with a railing?: None AM-PAC Basic Mobility (V.2) Raw Score: 24 AM-[facility] Basic Mobility (V.2) Standardized Score: 57.68 Interpretation: Clinicians answer the -[facility] Inpatient Short Form based on observed patient activity and/or clinical judgement (ie. patient can be scored without physically performing each activity) Based on scoring guidelines using the raw score value: Those going to home had an average score at or above 18 Those going to facility had an average score at or below 17 Assessment Discharge Therapy Needs - PT: Ongoing skilled physical therapy (Patient would likely benefit from post-acute PT (e.g outpatient services, HHC, ect) for higher level balance, functional endurance, andstrengthening programs) Skilled therapy can include physical therapy provided by home health, outpatient clinic, or a post-acute facility. The location of these services is determined by the patient's care team in partnership with patient/family. Level of Care Needed - PT: Assistance with walking and moving around the home, Assistance with stairs Equipment Recommended - PT: Front-wheeled walker Barriers to Discharge Home: Limited caregiver availability, Current functional status, Limited caregiver support, Safety concerns From a physical therapy perspective, the level of care above has been recommended for Mr. Harris after hospital discharge. This level of care is based on his functional abilities during today's session. This may change throughout the hospital course and will be updated as appropriate. Clinical Impression of today's session: Patient is making very good progress toward his functional mobility goals. He has achieved all goals except for ambulating modified independent in the hallway. He remains supervision for gentle reminders to self pace, otherwise, is tolerating a lengthy distance well without adverse events and far exceeding his household distances. Patient trialed the stairs again today- did not require any physical assistance and demonstrated good carryover of technique from yesterday's session. From a functional mobility standpoint, patient continues to improve with endurance and activity tolerance. He is deemed independent in room to and from the restroom. Therapist highly recommended for him to continue u tilizing the front wheeled walker for safety and stability. Patient was receptive to this feedback. Recommend ongoing physical therapy following hospital dismissal to progress independence and safetywith transfers. How these needs are met after hospitalization would be best determined in collaboration with the patient/family and our care management team. At this time physical therapy will continue working with patient to restore and maximize function, maximize safety, optimize mobility, teach and educate family and/or caregivers, and facilitate return to prior level of function. Rehab potential: Mr. Harris has Good potential to achieve established physical therapy goals within the time frame outlined below. Progress: Progressing toward goals Functional Goals and Timeframes: PT Inpatient Goals PT Goal #1: Patient will demonstrate bed mobility with modified independence to demonstrate improved functional mobility and independence. PT Goal #1 Status: Achieved PT Goal #2: Patient will complete sit to stand transfers with modified independence to perform safemobility for discharge home. PT Goal #2 Status: Achieved PT Goal #3: Patient will ambulate with least restricted assistive device modified independently for30 meters to demonstrate improved functional mobility for safe, in home ambulation PT Goal #3 Status: Progressing PT Goal #4: Patient will negotiate 6 stairs with standby assist to demonstrate improved functional mobility for safe entry into home. PT Goal #4 Status: Achieved Plan Patient agrees with the plan of care and goals. Treatment Plan: Plan: Continue with current plan PT Frequency: PT Amount: 1 visit per day PT Frequency: 5 times per week PT Inpatient Duration : Until goals are met or hospital discharge Requires Inpatient Follow-Up: Yes PT - Next Inpatient Appointment: 09/27/23 PT Plan Comments: [place] with ambulation. Treatment interventions may include: Treatment/Interventions: Therapeutic exercise, Therapeutic functional activity, Neuromuscular re-education, Gait training CUSTOM SKI MAKER Visit Trackin Billing: Time Spent with Patient Therapeutic Interventions Gait Training (min): 20 min Therapeutic Activity (min): 20 min Time Tracking Total Timed Units (min): 40 min Total Treatment Time (min): 40 min Aspen Greene P.T.A. CAL INSTRUMENTS SUPERVISOR Associated attestation - Lida Woodward P.T., D.P.T. - 09/27/2023 11:06 AM OPTICAL INSTRUMENTS SUPERVISOR The patient has dismissed from the hospital. Current functional status is documented in this note. Further skilled therapy is recommended at this time. Patient is discharged from acute physical therapy. Lida Woodward P.T., D.P.T. * Ginette Greene P.A.-C., M.S. - 09/26/2023 10:32 AM CST SUBJECTIVE Jong Harris is a 73 y.o. male [...] his diuresis de- escalated. He remained hemodynamically stable and planned to discharge to a halfway facility on 09/26. 24 Hour Events: Jong Harris has had an uneventful 24 hours. Continues to progress well post-operatively. Dismissal testing complete. Pain adequately controlled. Care management coordinating dismissal to SNF for tomorrow. OBJECTIVE I have reviewed the current vital sign data as applicable to this admission. DIAGNOSTICS I have reviewed relevant laboratory, imaging, and other diagnostics as applicable to this admission. PHYSICAL EXAM: General: Alert and oriented. In no acute distress Skin: Warm and dry without acute rashes or lesions. Sternal incision C/D/I. Eyes: Pupils reactive bilaterally. Conjunctivae pink. ENT: Trachea midline. Heart: Remains in sinus rhythm on bedside monitor. S1, S2 RRR. Lungs: Respirations even and nonlabored. Diminished bilateral bases. Abdomen: Soft, non-distended, hypoactive bowel sounds. Extremities: No cyanosis noted, 2+ pulses, 1+ lower extremity edema. Neuro: No focal neurological deficits present. 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 Glomerular Filtration Rate (GFR) 30 To 44 ([facility]) #3 Hyperlipidemia On Treatment #4 Benign Prostatic Hyperplasia Without Obstruction #5 Atrial Fibrillation Paroxysmal ([facility]) #6 Diabetes Mellitus Type 2 ([facility]) #7 Anemia In Chronic Kidney Disease #8 Hemiplegia Dominant Side Right ([facility]) #9 Hypertension Essential Primary #10 Stroke Cerebrovascular Accident Personal History #11 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 #12 Prosthesis Aortic Valve #13 Coronary Artery Disease Without Angina Pectoris #14 Anemia Posthemorrhagic Acute (Blood Loss Anemia) #15 Failure Renal Acute (Acute Kidney Injury) ([facility]) #16 Hyperkalemia #17 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 #18 Therapy Jail Antiplatelet #19 Device Cardiac Status Post #20 Cardiac Surgery Status Post #21 Effusion Pleural Neuro: No acute concerns. Pain is well controlled on scheduled Tylenol and PRN oxycodone. Continue ropinirole 0.5 mg po TID. History of CVA with residual mild right sided weakness and foot drop. Cardiovascular: Hemodynamically stable in sinus rhythm. HR in the 60-70s. SBPs in the 130-150s mmHg. Continue metoprolol 25 mg BID, amiodarone PO taper for atrial fibrillation, and statin therapy. All dismissal testing complete. Pulmonary: Maintaining adequate oxygen saturations on room air. Continue aggressive pulmonary hygiene. Renal: Adequate urine output. 425 cc out thus far today. Creatinine down- trending today with a value of 2.41. BUN 32. No further diuresis today. Plan for gentle diuresis at dismissal with Lasix 20 daily for 5 days. Replace potassium as indicated. Daily finasteride and Flomax continue. GI/Endocrine: Last BM Date: 09/24/23. Continue current bowel regimen. Continue adult regular diet. Heme: Continue DVT prophylaxis with ambulation and anticoagulation regimen. Continue anticoagulation therapy with warfarin per pharmacy protocol. INR goal 2.0-3.0. INR today 2.0. Continue antiplatelet therapy with ASA 81 mg. ID/Skin: Afebrile, no acute concerns. Post-operative antibiotic regimen complete. Code Status: Full Code Disposition: Continue to monitor on the PCU. I directly examined/reviewed the plan of care of this patient with the contaminated land consultant surgeon, Dr. Miller. Anticipated dismissal date: 09/27. Anticipated destination: SNF. PT/OT following. Barriers to discharge: [place]JE[place] Facility placement Medication reconciliation completed. CAL INSTRUMENTS SUPERVISOR * Eloisa Oro M.S.N., M.H.A., R.N., [facility] - 09/26/2023 7:44 AM OPTICAL INSTRUMENTS SUPERVISOR The patient is being prepared to discharge on 09/26/2023 at if medically ready for transfer. Contact CASE MANAGEMENT if time needs to be changed. Transportation will be provided by family. . Destination - Admitted Since 09/19/2023 Service Provider Selected Services Address Phone Fax Patient Preferred [facility] [phone] [facility] [phone] -- Contact: Admissions Transportation oxygen: No oxygen needed. NURSING: - Complete documentation in the Discharge Navigator including Nursing Report Info and Facility/NextLevel of Care Info - Contact facility to give report on morning of discharge. - Send After Visit Summary and required packet of dismissal information with patient, including advance directive. Patient needs to be at facility before 12 pm. PRIMARY SERVICE: - Provider to Provider call is not required. - Provide written prescriptions for all narcotics. After Visit Summary to Include: - All discharge medications include dosage, times for administration, diagnosis, and stop date. - Ongoing care - wound care, infection precautions and phone numbers to call. CASE MANAGEMENT: - Pre-admission screen will be completed. - Will continue to follow. CAL INSTRUMENTS SUPERVISOR * Ginette Greene P.A.Adrianna., M.S. - 09/25/2023 3:42 PM CST SUBJECTIVE Jong Harris is a 73 y.o. male [...] slightly again on 09/23 and his diuresis was held. He remained hemodynamically stable and planned to discharge home on 09/25. 24 Hour Events: Jong Harris has had an uneventful 24 hours. Continues to progress well post-operatively. Dismissal testing complete. Pain adequately controlled. Care management coordinated dismissal to SNF. OBJECTIVE I have reviewed the current vital sign data as applicable to this admission. DIAGNOSTICS I have reviewed relevant laboratory, imaging, and other diagnostics as applicable to this admission. PHYSICAL EXAM: General: Alert and oriented. In no acute distress Skin: Warm and dry without acute rashes or lesions. Sternal incision C/D/I. Eyes: Pupils reactive bilaterally. Conjunctivae pink. ENT: Trachea midline. Heart: Remains in sinus rhythm on bedside monitor. S1, S2 RRR. Lungs: Respirations even and nonlabored. Diminished bilateral bases. Abdomen: Soft, non-distended, hypoactive bowel sounds. Extremities: No cyanosis noted, 2+ pulses, 1+ lower extremity edema. Neuro: No focal neurological deficits present. 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 Glomerular Filtration Rate (GFR) 30 To 44 ([facility]) #3 Hyperlipidemia On Treatment #4 Benign Prostatic Hyperplasia Without Obstruction #5 Atrial Fibrillation Paroxysmal ([facility]) #6 Diabetes Mellitus Type 2 ([facility]) #7 Anemia In Chronic Kidney Disease #8 Hemiplegia Dominant Side Right ([facility]) #9 Hypertension Essential Primary #10 Stroke Cerebrovascular Accident Personal History #11 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 #12 Prosthesis Aortic Valve #13 Coronary Artery Disease Without Angina Pectoris #14 Anemia Posthemorrhagic Acute (Blood Loss Anemia) #15 Failure Renal Acute (Acute Kidney Injury) ([facility]) #16 Hyperkalemia #17 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 #18 Therapy Jail Antiplatelet #19 Device Cardiac Status Post #20 Cardiac Surgery Status Post #21 Effusion Pleural Neuro: No acute concerns. Pain is well controlled on scheduled Tylenol and PRN oxycodone. Continue ropinirole 0.5 mg po TID. History of CVA with residual mild right sided weakness and foot drop. Cardiovascular: Hemodynamically stable in sinus rhythm. HR in the 60-70s. SBPs in the 110-140s mmHg. Continue metoprolol 25 mg BID, amiodarone PO taper for atrial fibrillation, and statin therapy. All dismissal testing complete. Pulmonary: Maintaining adequate oxygen saturations on room air. Continue aggressive pulmonary hygiene. Renal: Adequate urine output. 350 cc out thus far today. Creatinine up-trending at 2.64 today. BUN 34. No further diuresis today. Plan for gentle diuresis at dismissal with Lasix 20-40 mg daily. Replace potassium as indicated. Daily finasteride and Flomax continue. GI/Endocrine: Last BM Date: 09/24/23. Continue current bowel regimen. Continue Adult Diet Regular. . Heme: Continue DVT prophylaxis with ambulation and anticoagulation regimen. Continue anticoagulation therapy with warfarin per pharmacy protocol. INR goal 2.0-3.0. INR today 2.0. Continue antiplatelet therapy with ASA 81 mg. ID/Skin: Afebrile, no acute concerns. Post-operative antibiotic regimen complete. Code Status: Full Code Disposition: Continue to monitor on the PCU. I directly examined/reviewed the plan of care of this patient with the contaminated land consultant surgeon, Dr. Miller. Anticipated dismissal date: 09/26. Anticipated destination: SNF. PT/OT following. Barriers to discharge: MANJEET Facility placement Medication reconciliation completed. CAL INSTRUMENTS SUPERVISOR * Yun Childs M.S.N., R.N. - 09/25/2023 2:07 PM CST SUBJECTIVE The telephonic nurse case manager met with the patient and his to discuss the accepted and pending referrals. The patient's asked the telephonic nurse case manager to call the [facility] for possibility of taking patient because it is their first preference. [facility]ph[facility] and left a voice message for call back information. OBJECTIVE Patient hospitalized on MB 5 C PCU 614 ASSESSMENT / PLAN ASSESSMENT The Person(s) Present During Interview: patient and spouse Lissy appear to have insight into the patient's needs at this time and are planning appropriately for discharge needs. They report agreement with the below plan with no further questions at this time. PLAN The patient and patient's agrees with the following plan. Patient's anticipated discharge disposition is: Long-Term Facility Referrals sent. [place] sent to [facility]. Transportation upon dismissal will be provided by family-- . project management it specialist encouraged the patient to reach out with any questions/concerns. Damon Moreno, R.N. 09/25/23 CAL INSTRUMENTS SUPERVISOR * Lida Woodward P.T., Emilia.P.T. - 09/25/2023 11:42 AM CST Physical Therapy Inpatient Treatment Note SUBJECTIVE Patient's Name: Jong Harris Referring/Attending: Sarah Miller M.D. Medical Diagnosis: Stenosis Aortic Valve Acquired [I35.0] Acquired Aortic Valve Disorder [I35.9] Reason for Referral: PT Evaluate and Treat PT eval and treat cardiac Onset Date: 09/19/23 Payor: [facility] / Plan: [employer] MEDICARE ADVANTAGE [place] PPO / Product Type: PPO / History of Present Illness: 73 y.o. male admitted on 09/19/2023 for coronary artery bypass grafting x 1, mechanical aortic valve replacement, MAZE, and left atrial appendage ligation Family/Caregiver Present: Yes (spouse) Patient/Caregiver Goals: None stated Patient Comments: Patient is up in chair at PT arrival, he denies pain and is agreeable to PT this morning. Precautions Other Precautions: sternal, hx of right residual weakness (LE>UE) and foot drop from prior stroke (approximately 4 years ago) Fall Risk (65 and older) Fall in the last 12 months: Yes (fall yesterday) Did you have an injury with the fall?: No OBJECTIVE Jong'cristhian NOHARM modalities were not used during their therapy session. Vitals monitored throughout session; within normal ranges. Treatment consisted of: Bed Mobility - Sit to Supine # of Assistants: 0 Level of Assistance: Independent Device: None Sit to Stand Transfers # of Assistants: 0 Transfer Surface: Chair Transfer Equipment: Gait belt, Front wheeled walker Level of Assistance: Modified Independent Assessment/Delivery: Assessed Stand to Sit Transfers # of Assistants: 1 Transfer Surface: Bed Transfer Equipment: Gait belt, Front wheeled walker Level of Assistance: Supervision/set-up Assessment/Delivery: Assessed, Facilitated, Instructed Comments: appropriate hand placement, cues for alignment of body and walker to transfer surface Gait Assessment/Training Distance (m): 38 m Surface: Even, Smooth/hard Device: Gait belt, Front-wheeled walker, No device # of Assistants: 1 Level of Assistance: Contact guard assistance, Supervision/Set-up Assessment of Gait: downward gaze, step through gait pattern, mild path deviation/trunk sway and trendelenburg deviation noted when not using FWW Cueing Provided: Verbal, Tactile Training/Intervention: ambulated approximately 50 feet without walker, educated on walker use for energy conservation and stability, education for activity pacing. Stairs/Curb # Stairs: 6 Rails: 1, 2 Device: Gait belt # of Assistants: 1 Level of Assistance: Contact guard assistance Stair Navigation Pattern-Ascending: Step-to pattern Stair Navigation Lead Foot-Ascending: Left Stair Navigation Pattern-Descending: Step-to pattern Stair Navigation Lead Foot-Descending: Right Cueing Provided: Verbal Training/Intervention: cues for sequencing, 3 steps up/down with 2 rails, 3 steps up/down with single rail Education provided this session: PT plan of care Sternal precautions Activity pacing Stair negotiation Patient's nurse was contacted and patient's status was discussed, Discussed patient's care with OT Patient was left in bed at end of session with call light in reach, all needs met and questions answered. Outcome Measures [facility] Inpatient Short Form: -[facility] Basic Mobility (V.2) How much help from another person do you currently need???If the patient hasn't done an activity recently, how much help from another person do you think he/she would needif he/she tried? 1. Turning from your back to your side while in a flat bed without using bedrails?: None 2. Moving from lying on your back to sitting on the side of a flat bed without using bedrails?: A Little 3. Moving to and from a bed to a chair (including a wheelchair)?: A Little 4. Standing up from a chair using your arms (e.g., wheelchair, or bedside chair)?: None 5. To walk in hospital room?: A Little 6. Climbing 3-5 steps with a railing?: A Little -[facility] Basic Mobility (V.2) Raw Score: 20 -[facility] Basic Mobility (V.2) Standardized Score: 43.99 Interpretation: Clinicians answer the -[facility] Inpatient Short Form based on observed patient activity and/or clinical judgement (ie. patient can be scored without physically performing each activity) Based on scoring guidelines using the raw score value: Those going to home had an average score at or above 18 Those going to facility had an average score at or below 17 Assessment Discharge Therapy Needs - PT: Ongoing skilled physical therapy (Patient would likely benefit from post-acute PT (e.g outpatient services, HHC, ect) for higher level balance, functional endurance, andstrengthening programs) Skilled therapy can include physical therapy provided by home health, outpatient clinic, or a post-acute facility. The location of these services is determined by the patient's care team in partnership with patient/family. Level of Care Needed - PT: Assistance with walking and moving around the home, Assistance with stairs Equipment Recommended - PT: Front-wheeled walker Barriers to Discharge Home: Limited caregiver availability, Current functional status, Limited caregiver support, Safety concerns From a physical therapy perspective, the level of care above has been recommended for Mr. Harris after hospital discharge. This level of care is based on his functional abilities during today's session. This may change throughout the hospital course and will be updated as appropriate. Clinical Impression of today's session: Patient tolerated therapy well this morning. He reports that he was feeling fatigued after completing ambulation bout, requiring seated rest at edge of bed prior to trialing stairs. Patient demonstrates notably improved stability using FWW at this time. Patient is mobilizing well but is currently benefitting from supervision with activity, specifically ambulation and stairs. Patient and his spouse report that assistance available is limited due to patient's spouse having surgery next week and their son recovering from recent surgery. Patient is functioning below their mobility baseline and would benefit from continued skilled PT inthe acute setting to continue to progress in mobility and maximize safety/independence prior to discharge. Rehab potential: Mr. Harris has Good potential to achieve established physical therapy goals within the time frame outlined below. Progress: Progressing toward goals Functional Goals and Timeframes: PT Inpatient Goals PT Goal #1: Patient will demonstrate bed mobility with modified independence to demonstrate improved functional mobility and independence. PT Goal #1 Status: Progressing PT Goal #2: Patient will complete sit to stand transfers with modified independence to perform safemobility for discharge home. PT Goal #2 Status: Progressing PT Goal #3: Patient will ambulate with least restricted assistive device modified independently for30 meters to demonstrate improved functional mobility for safe, in home ambulation PT Goal #3 Status: Progressing PT Goal #4: Patient will negotiate 6 stairs with standby assist to demonstrate improved functional mobility for safe entry into home. PT Goal #4 Status: Advanced Plan Patient agrees with the plan of care and goals. Treatment Plan: Plan: Continue with current plan PT Frequency: PT Amount: 1 visit per day PT Frequency: 5 times per week PT Inpatient Duration : Until goals are met or hospital discharge Requires Inpatient Follow-Up: Yes PT - Next Inpatient Appointment: 09/26/23 PT Plan Comments: Progress independence with transfers, gait, and stair negotiation Treatment interventions may include: Treatment/Interventions: Therapeutic exercise, Therapeutic functional activity, Neuromuscular re-education, Gait training Billing: Time Spent with Patient Therapeutic Interventions Gait Training (min): 12 min Therapeutic Activity (min): 8 min Time Tracking Total Timed Units (min): 20 min Total Treatment Time (min): 20 min Lida Woodward P.T., D.P.T. CAL INSTRUMENTS SUPERVISOR * Pamela Medina Pharm.DJarrett, R.Ph. - 09/25/2023 10:26 AM CST Warfarin Dosing Progress Note: More information: Jong Harris is a 73 y.o. male who was admitted to the hospital on 09/19/2023. Hospital Pharmacy has been consulted for inpatient warfarin management and monitoring. Warfarin Indication: Aortic valve - Mechanical Other indication (comments): No data recorded Type of therapy: New Prior average daily dose: No data recorded Comorbidities: Post-cardiac valve surgery Are any of these comorbidities new with admission? No data recorded Are there any new medication interactions with admission? No data recorded Target INR: 2 - 3 Day of therapy: 5 and beyond Drug interactions include the following: Strong Potentiator (From admission, onward) None Moderate Potentiators (From admission, onward) Start Dose/Rate Route Frequency Ordered Stop 09/30/23 0900 amiodarone tablet 200 mg (PACERONE) See Hyperspace for full Linked Orders Report. 200 mg oral Daily 09/22/23 1219 10/30/23 0859 09/26/23 0900 amiodarone tablet 200 mg (PACERONE) See Hyperspace for full Linked Orders Report. 200 mg oral 2 times daily 09/22/23 1219 09/30/23 0859 09/22/23 1245 amiodarone tablet 400 mg (PACERONE) See Hyperspace for full Linked Orders Report. 400 mg oral 2 times daily 09/22/23 1219 09/26/23 0859 09/21/23 1800 acetaminophen tablet 1,000 mg (TYLENOL) See Hyperspace for full Linked Orders Report. 1,000 mg oral Every 6 hours 09/21/23 1425 09/19/23 1800 acetaminophen tablet 650 mg (TYLENOL) See Hyperspace for full Linked Orders Report. 650 mg oral Every 6 hours 09/19/23 1707 09/21/23 1759 Potentiating (From admission, onward) Start Dose/Rate Route Frequency Ordered Stop 09/21/23 1800 acetaminophen tablet 1,000 mg (TYLENOL) See Hyperspace for full Linked Orders Report. 1,000 mg oral Every 6 hours 09/21/23 1425 09/20/23 1400 rOPINIRole tablet 0.5 mg (REQUIP) 0.5 mg oral 3 times daily 09/20/23 1011 09/19/23 1800 acetaminophen tablet 650 mg (TYLENOL) See Hyperspace for full Linked Orders Report. 650 mg oral Every 6 hours 09/19/23 1707 09/21/23 1759 Enzyme Inducers (From admission, onward) None Binders (From admission, onward) None Vitamin K-Containing Medications (168h ago, onward) None Antiplatelets & Anticoagulants (168h ago, onward) Start Dose/Rate Route Frequency Ordered Stop 09/25/23 1700 warfarin tablet 1 mg (COUMADIN) 1 mg oral Once 09/25/23 1026 09/25/23 2345 09/24/23 1700 warfarin tablet 0.5 mg (COUMADIN) 0.5 mg oral Once 09/24/23 1027 09/24/23 1636 09/23/23 1700 warfarin (COUMADIN) NO Dose Today oral Once 09/23/23 1420 09/23/23 1717 09/22/23 1700 warfarin tablet 2 mg (COUMADIN) 2 mg oral Once 09/22/23 1237 09/22/23 1736 09/21/23 1700 warfarin tablet 2 mg (COUMADIN) 2 mg oral Once 09/21/23 0819 09/21/23 1839 09/21/23 0745 warfarin management (COUMADIN) oral Daily 09/21/23 0717 09/20/23 0900 aspirin chewable tablet 81 mg 81 mg oral Daily 09/19/23 1909 INR reversal agents were given. Warfarin Reversal Agent Administrations (last 168 hours) Vitamin K and K-Centra Date/Time Action Medication Rate 09/19/23 1554 New Bag prothrombin complex conc (human) four factor infusion 1,577 Units (KCENTRA) 504 mL/hr FFP Administrations During Encounter (Filter): EAP GENERAL TRANSFUSE FFP Medications Shown None Warfarin Administrations (last 168 hours) Date/Time Action Medication Dose 09/24/23 1636 Given warfarin tablet 0.5 mg (COUMADIN) 0.5 mg 09/23/23 1717 No Dose Today warfarin (COUMADIN) NO Dose Today 09/22/23 1736 Given warfarin tablet 2 mg (COUMADIN) 2 mg 09/21/23 1839 Given warfarin tablet 2 mg (COUMADIN) 2 mg INR (no units) Date Value Status 09/24/2023 2.6 Final 09/23/2023 3.7 Final 09/23/2023 3.2 Final 09/22/2023 1.5 Final 09/21/2023 1.3 Final 09/20/2023 1.1 Final 09/19/2023 1.1 Final 09/19/2023 1.1 Final 09/19/2023 1.5 Final 09/19/2023 1.4 Final 09/19/2023 1.5 Final A/P: INR therapeutic at 2.6 today. Warfarin order of 1 mg has been placed for today and the pharmacist team will continue to follow patient's clinical progress daily until discharge from the hospital. Pamela Medina Pharm.D., R.Ph. Contact [phone] with any questions about this note. CAL INSTRUMENTS SUPERVISOR * Pamela Medina Pharm.D., R.Ph. - 09/25/2023 10:15 AM CST Clinical Pharmacist Progress Note Jong Harris is a 73 y.o. male admitted on 09/19/2023 [id number]. 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 Pharmacotherapy Plan: Hemodynamics: post bypass preserved biventricular function (LVEF 70%), no periprosthetic regurgitation. Off clevidipine, titrate beta leonora as tolerated. Amiodarone taper in place CAD s/p CABG: ASA 81 mg, atorvastatin 80 mg, and metoprolol. Hematologic: antiplatelet as above, warfarin for the mechanical aortic valve. Very labile INR, 2.6 today. SQH discontinued, continue warfarin. Renal: tamsulosin and finasteride resumed, MANJEET (unclear BL but appears to be 1.4-1.7), inaccurate UOP d/t undocumented voids, seble lasix 40 mg BID Neuro: continues [employer] ropinirole. Endo: BG goal < 180, DCS following and has SSI available, has been intermittently hyperglycemic.Advancing diet as tolerated. Recommend starting insulin glargine 5 units daily. MISC: persistent hiccups, trialing PRN baclofen 2.5 mg TID. 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 CAL INSTRUMENTS SUPERVISOR * Laila Basurto P.A.-C. - 09/24/2023 3:32 PM CST SUBJECTIVE Jong Harris is a 73 y.o. male [...] slightly again on 09/23 and his diuresis was held. He remained hemodynamically stable and planned to discharge home on 09/25. 24 Hour Events: Jong Harris feels well overall. His pain is well controlled. He feels like he is getting stronger each day with ambulation and transfers. He is awaiting PT evaluation with stairs, he has stairs to get into his house. He otherwise has no concerns at this time. His is having surgery on Sunday and he will not have help at home for assistance/transfers at that point. He has residual right sided weakness with a foot drop/slide from his previous stroke. They are considering SNF/HHC for discharge planning. OBJECTIVE I have reviewed the current vital sign data as applicable to this admission. DIAGNOSTICS I have reviewed relevant laboratory, imaging, and other diagnostics as applicable to this admission. PHYSICAL EXAM: General: Alert and oriented. In no acute distress. Skin: Warm and dry without acute rashes or lesions. Sternal incision C/D/I. Chest tube sites covered. Some diffuse skin irritation/erythema surrounding incision in area of [place] adhesive. Eyes: Pupils reactive bilaterally. Conjunctivae pink. ENT: Neck supple. Trachea midline. Heart: Remains in sinus rhythm on bedside monitor. S1, S2 regular rate and rhythm without extra sounds, murmurs, rubs or gallops. Lungs: Respirations regular and easy. Clear and equal to auscultation. Abdomen: Soft, non-distended, non-tender, active bowel sounds. Extremities: No cyanosis noted, palpable pulses, trace lower extremity edema. Neuro: No focal neurological deficits present. LABS: Recent Results (from the past 24 hour(s)) Prothrombin Time (PT) Collection Time: 09/23/23 3:44 PM Result Value Prothrombin Time, P 41.6 (H) INR 3.7 Hemoglobin Collection Time: 09/23/23 3:44 PM Result Value Hemoglobin 8.1 (L) Basic Metabolic Panel Collection Time: 09/23/23 3:44 PM Result Value Potassium, P 4.4 Sodium, P 136 Chloride, P 97 (L) Bicarbonate, P 30 (H) Anion Gap, P 9 BUN (Blood Urea Nitrogen), P 42 (H) Creatinine 2.54 (H) Estimated GFR (eGFR) 26 (L) Calcium, Total, P 8.9 Glucose, P 213 (H) Glucose, POCT Collection Time: 09/23/23 5:02 PM Result Value Glucose, POCT, B 190 (H) Site Capillary Last Intake 3-4 hours Glucose, POCT Collection Time: 09/23/23 9:38 PM Result Value Glucose, POCT, B 186 (H) Site Capillary Last Intake 1-2 hours CBC without Differential Collection Time: 09/24/23 6:49 AM Result Value Hemoglobin 8.3 (L) Hematocrit 24.2 (L) Erythrocytes 2.62 (L) MCV 92.4 RBC Distrib Width 13.3 Platelet Count 163 Leukocytes 6.4 Prothrombin Time (PT) Collection Time: 09/24/23 6:49 AM Result Value Prothrombin Time, P 28.9 (H) INR 2.6 Basic Metabolic Panel Collection Time: 09/24/23 6:49 AM Result Value Potassium, S 4.3 Sodium, S 138 Chloride, S 99 Bicarbonate, S 29 Anion Gap 10 BUN (Blood Urea Nitrogen), S 36 (H) Creatinine 2.48 (H) Estimated GFR (eGFR) 27 (L) Calcium, Total, S 8.3 (L) Glucose, S 148 (H) Glucose, POCT Collection Time: 09/24/23 7:19 AM Result Value Glucose, POCT, B 138 Site Capillary Last Intake 3-4 hours Glucose, POCT Collection Time: 09/24/23 12:43 PM Result Value Glucose, POCT, B 216 (H) Site Capillary Last Intake 3-4 hours Intake/Output Summary (Last 24 hours) at 09/24/2023 1532 Last data filed at 09/24/2023 1343 Gross per 24 hour Intake 880 ml Output 1450 ml Net -570 ml ASSESSMENT / PLAN #1 Stenosis Aortic Valve Acquired #2 Coronary Artery Disease Without Angina Pectoris #3 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 #4 Prosthesis Aortic Valve #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 Glomerular Filtration Rate (GFR) 30 To 44 ([facility]) #6 Hyperlipidemia On Treatment #7 Benign Prostatic Hyperplasia Without Obstruction #8 Atrial Fibrillation Paroxysmal ([facility]) #9 Diabetes Mellitus Type 2 ([facility]) #10 Anemia In Chronic Kidney Disease #11 Hemiplegia Dominant Side Right ([facility]) #12 Hypertension Essential Primary #13 Stroke Cerebrovascular Accident Personal History #14 Anemia Posthemorrhagic Acute (Blood Loss Anemia) #15 Failure Renal Acute (Acute Kidney Injury) ([facility]) #16 Hyperkalemia #17 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 #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 Pain is well controlled. Currently on scheduled Tylenol and PRN oxycodone. Encourage topicals and ice/heat for pain as needed. Continue home ropinirole. He has residual right sided weakness and foot drop/slide from his previous stroke. PRN Baclofen TID at low-dose of 2.5 mg for hiccups- monitor with MANJEET. Cardiovascular: Hemodynamically stable in sinus rhythm with HRs in the 60s, SBPs in the 130-140s. Continue metoprolol 25 mg BID, amiodarone PO taper for atrial fibrillation, and statin therapy. Dismissal TTE today- awaiting results. Of note, patient has a previously placed loop recorder. DC EKG ordered for tomorrow morning. Pulmonary: Maintaining adequate oxygen saturations on room air- 1 L NC. Continue aggressive pulmonary hygiene. Daytime oxygen study done today and did not require any oxygen. Nocturnal oxygen study ordered for tonight. DC CXR tomorrow morning. Renal: Adequate urine output. Clinically appears hypervolemic vs euvolemic, weight is up. Postoperative MANJEET. Creatinine down to 2.48 from 2.54. Initiate Lasix 40 mg IV BID for this evening dose, 20 IV was given this morning. Continue home Flomax. GI/Endocrine: Last BM Date: 09/24/23. Continue scheduled senna. PRN bowel regimen available. Continue Adult Diet Regular. Continue PPI for GI prophylaxis. DCS following for T2DM. Heme: Continue DVT prophylaxis with SCDs, ambulation, and anticoagulation regimen. Continue anticoagulation therapy with warfarin per pharmacy protocol. INR goal 2-3. INR today 2.6. Continue antiplatelet therapy with ASA 81 mg. Hemoglobin stable. Platelets WNL. ID/Skin: No acute concerns. Post-operative antibiotic regimen complete. Sternal incision C/D/I. Afebrile, WBC WNL. Continue LEATHA wraps to lower extremities when out of bed. Code Status: Full Code Disposition: Continue to monitor on the PCU. I directly examined/reviewed the plan of care of this patient with the contaminated land consultant surgeon, Dr. Miller. Anticipated dismissal date: 09/24. Anticipated destination: Home self-care, Home with home health care, or SNF. PT/OT following- patient will not haveavailable assistance at home after his 's surgery next week. SW following for disposition planning- have sent referrals for SNF and C, unsure whether he will qualify. Barriers to discharge: Diuresis Medication optimization MANJEET Facility placement Dismissal testing May require homegoing oxygen Medication reconciliation completed. CAL INSTRUMENTS SUPERVISOR * Lida Woodward P.T., D.P.T. - 09/24/2023 3:28 PM CST 09/24/23 1528 Reason Therapy Missed Reason Therapy Missed At test/procedure Patient away at ECHO.. PT to follow up as able. CAL INSTRUMENTS SUPERVISOR * Neelam Villalobos O.T., ZakiTRomeo - 09/24/2023 1:56 PM CST Occupational Therapy Acute Hospital Inpatient Treatment SUBJECTIVE Patient's Name: Jong Harris Referring/Attending Provider: Sarah Miller M.D. Medical Diagnosis: Stenosis Aortic Valve Acquired [I35.0] Acquired Aortic Valve Disorder [I35.9] Reason for Referral: Occupational Therapy Evaluation and Treatment OT eval and treat cardiac Onset Date: 09/19/23 Payor: [facility] / Plan: [facility] MEDICARE ADVANTAGE [place] PPO / Product Type: PPO / History of Present Illness:73 y.o. male admitted on 09/19/2023 for coronary artery bypass grafting x1, mechanical aortic valve replacement, MAZE, and left atrial appendage ligation Family/Caregiver Present: Yes () Patient/Caregiver Goals: None stated Patient Comments: Patient presented seated in bedside chair, agreeable to OT session. Patient with no complaints of pain during session. Precautions Other Precautions: sternal, hx of right residual weakness (LE>UE) and foot drop from prior stroke (approximately 4 years ago) OBJECTIVE Jong's NOHARM modalities were not used during their therapy session. Grooming Grooming Location: Standing at sink Grooming Level of Assistance: Supervision/Set-up Grooming Comments: Patient ambulated to sink with front wheeled walker with supervision to contact guard assistance, however unable to complete as then he had to leave for echo Adaptive Interventions Activity Modification/Work Simplification: Educated patient on the new guidelines for people have achest incision (median sternotomy) in regards to movement and self-care. Educated patient that for the 1st 6 weeks after surgery they can do gentle range of motion with upper extremities as long as there is no pain. Educated patient that pushing, pulling and lifting are permitted as long as it is not painful and that their elbows are maintained close to the body. Educated patient that they can use their arms to care for themselves including such things as marlene-hygiene, brushing teeth, getting dressed and taking a shower. Continually remind patient that if something hurts stop and do not do it and instead modify the task or ask for help. Educated patient on activity restrictions with laundry, cleaning, driving, etc. Provided handout. Adaptive Intervention/Education: Patient was educated on sternal precautions and how to apply thoseprecautions to activities of daily living and functional transfers. ADL Comments ADL Comments: Patient and spouse educated on role of OT in the acute care setting and facilitated discussion regarding precautions and current level of assist needed. Focus on addressing safe progression of functional mobility to promote participation in mobility related activities of daily living and safe completion for I/ADL's Sit to Stand Transfers # of Assistants: 1 Transfer Surface: Chair Transfer Equipment: Front wheeled walker, Gait belt Level of Assistance: Supervision/set-up Assessment/Delivery: Assessed, Facilitated Stand to Sit Transfers # of Assistants: 1 Transfer Surface: Wheelchair Transfer Equipment: Front wheeled walker, Gait belt Level of Assistance: Supervision/set-up Assessment/Delivery: Assessed, Facilitated Bed, Chair, Wheelchair Transfers # of Assistants: 1 Transfer Surface: Wheelchair Transfer Approach: Ambulating, To Transfer Equipment: Front wheeled walker Level of Assistance: Contact guard assistance Assessment/Delivery: Assessed, Facilitated Comments: contact guard assistance for safety Education provided today: as noted Team Communication: Patient's nurse was contacted and patient's status was discussed, Discussed patient's care with PT Outcome Measures [facility] Inpatient Short Form: Putting on and taking off regular lower body clothing?: A Little Putting on and taking off regular upper body clothing?: A Little Taking care of personal grooming such as brushing teeth?: A Little (standing) Bathing (including washing, rinsing, drying)?: A Little Toileting, which includes using toilet, bedpan, or urinal?: A Little Eating meals?: None Daily Activities Raw Score (max 24): 19 Daily Activities Standardized Score: 40.22 Interpretation: Clinicians answer the [facility] Inpatient Short Form based on observed patient activity and/or clinical judgement (ie. patient can be scored without physically performing each activity) Based on scoring guidelines using the raw score value: Those going to home had an average score at or above 18 Those going to facility had an average score at or below 17 Patient was left in wheelchair at end of session with call light in reach, all needs met and questions answered. Assessment Discharge Therapy Needs - OT: Ongoing skilled occupational therapy (pending progress) Skilled therapy can include occupational therapy provided by home health, outpatient clinic, or a post-acute facility. The location of these services is determined by the patient's care team in partnership with patient/family. Level of Care Needed - OT: Assistance with toilet/shower transfers, Assistance with dressing, Assistance with meal preparation, Assistance with shopping, Assistance with housekeeping, Assistance withtransportation, Assistance with director of student financial aid, Assistance with showering/bathing Recommended Adaptive Equipment - OT: Other (Comment) (ongoing) Barriers to Discharge Home: Limited caregiver availability, Current functional status, Limited caregiver support, Safety concerns Clinical Impression: Patient functional ability continues to be limited by decreased activity tolerance and new sternal precautions, and baseline right sided weakness from prior stroke. Today, patient completed functional mobility/transfers with largely supervision to contact guard assistance. Session ended early due to patient being taken down for echocardiogram. Education provided on sternal precautions, safety, and current level of assist for I/ADL's recommendation noted below. At this time, patient benefits from assist of 1 for safe completion of ADLs/IADLs. However, patientappears that he will not have that level of assist available at home. His has a scheduled surgery for end of this week, and family support for IADL's limited at this time per spouse report. Patient continues below functional baseline and would benefit from continued skilled OT services toaddress functional deficits, maximize functional independence, and safety. Rehab potential: Mr. Harris has good potential to achieve established occupational therapy goals within the time frame outlined below. Functional Goals: OT Goal #1: Patient and/or caregiver will demonstrate understanding of sternal precautions, activity modifications, and adaptive equipment to optimize safe discharge OT Goal #1 Status: Progressing OT Goal #2: Patient will complete toileting (transfer, clothing management, hygiene) with modified independence to maximize independence and return to prior level of function OT Goal #2 Status: Progressing OT Goal #3: Patient will complete full body dressing with adaptive equipment as needed with modified independence to maximize independence and return to prior level of function OT Goal #3 Status: Ongoing Progress: Progressing toward goals Plan Occupational Therapy Attestation Statement: Patient agrees with the plan of care and goals. OT Frequency: OT Amount: 1 visit per day OT Frequency: 5 times per week OT Inpatient Duration : Until goals are met or hospital discharge Requires Inpatient OT Follow-Up: Yes OT - Next Inpatient Appointment: 09/25/23 Plan: Continue with current plan OT Plan Comments: Next session: full body dressing with item retrieval, progress mobility for toileting, review sternal precautions/home safety Treatment interventions may include: Treatment Interventions: Therapeutic exercise, Therapeutic functional activity, Self-care/home management, Cognitive skills training Billing: Time Spent with Patient Therapeutic Interventions Home Management Training (min): 10 min Time Tracking Total Timed Units (min): 10 min Total Treatment Time (min): 10 min Neelam Villalobos O.T., O.T.D. CAL INSTRUMENTS SUPERVISOR * Eze Sevilla R.R.T., L.R.T. - 09/24/2023 1:46 PM CST 09/24/23 1344 Home Oxygen Assessment Rest/Awake Room Air SpO2 96 Percent Exercise/Activity Room Air SpO2 93 Percent Exercise/Activity with Oxygen SpO2 -- Patient seen for home oxygen assessment. Pt does not require oxygen during the day at times of restor with activity. Patient walked approx 100 feet without issue. Returned to room on RA and allowed to stabilize. RN informed of findings. All questions answered. Electronically signed by: Cory Sevilla R.R.T., EricaR.TJarrett 09/24/23 1:47 PM OPTICAL INSTRUMENTS SUPERVISOR CAL INSTRUMENTS SUPERVISOR * Pamela Medina Pharm.DJarrett, R.Ph. - 09/24/2023 10:27 AM CST Warfarin Dosing Progress Note: More information: Jong Harris is a 73 y.o. male who was admitted to the hospital on 09/19/2023. Hospital Pharmacy has been consulted for inpatient warfarin management and monitoring. Warfarin Indication: Aortic valve - Mechanical Other indication (comments): No data recorded Type of therapy: New Prior average daily dose: No data recorded Comorbidities: Post-cardiac valve surgery Are any of these comorbidities new with admission? No data recorded Are there any new medication interactions with admission? No data recorded Target INR: 2 - 3 Day of therapy: 4 Drug interactions include the following: Strong Potentiator (From admission, onward) None Moderate Potentiators (From admission, onward) Start Dose/Rate Route Frequency Ordered Stop 09/30/23 0900 amiodarone tablet 200 mg (PACERONE) See Hyperspace for full Linked Orders Report. 200 mg oral Daily 09/22/23 1219 10/30/23 0859 09/26/23 0900 amiodarone tablet 200 mg (PACERONE) See Hyperspace for full Linked Orders Report. 200 mg oral 2 times daily 09/22/23 1219 09/30/23 0859 09/22/23 1245 amiodarone tablet 400 mg (PACERONE) See Hyperspace for full Linked Orders Report. 400 mg oral 2 times daily 09/22/23 1219 09/26/23 0859 09/21/23 1800 acetaminophen tablet 1,000 mg (TYLENOL) See Hyperspace for full Linked Orders Report. 1,000 mg oral Every 6 hours 09/21/23 1425 09/19/23 1800 acetaminophen tablet 650 mg (TYLENOL) See Hyperspace for full Linked Orders Report. 650 mg oral Every 6 hours 09/19/23 1707 09/21/23 1759 Potentiating (From admission, onward) Start Dose/Rate Route Frequency Ordered Stop 09/21/23 1800 acetaminophen tablet 1,000 mg (TYLENOL) See Hyperspace for full Linked Orders Report. 1,000 mg oral Every 6 hours 09/21/23 1425 09/20/23 1400 rOPINIRole tablet 0.5 mg (REQUIP) 0.5 mg oral 3 times daily 09/20/23 1011 09/19/23 1800 acetaminophen tablet 650 mg (TYLENOL) See Hyperspace for full Linked Orders Report. 650 mg oral Every 6 hours 09/19/23 1707 09/21/23 1759 Enzyme Inducers (From admission, onward) None Binders (From admission, onward) None Vitamin K-Containing Medications (168h ago, onward) None Antiplatelets & Anticoagulants (168h ago, onward) Start Dose/Rate Route Frequency Ordered Stop 09/24/23 1700 warfarin tablet 0.5 mg (COUMADIN) 0.5 mg oral Once 09/24/23 1027 09/24/23 2345 09/23/23 1700 warfarin (COUMADIN) NO Dose Today oral Once 09/23/23 1420 09/23/23 1717 09/22/23 1700 warfarin tablet 2 mg (COUMADIN) 2 mg oral Once 09/22/23 1237 09/22/23 1736 09/21/23 1700 warfarin tablet 2 mg (COUMADIN) 2 mg oral Once 09/21/23 0819 09/21/23 1839 09/21/23 0745 warfarin management (COUMADIN) oral Daily 09/21/23 0717 09/20/23 0900 aspirin chewable tablet 81 mg 81 mg oral Daily 09/19/23 1909 INR reversal agents were given. Warfarin Reversal Agent Administrations (last 168 hours) Vitamin K and K-Centra Date/Time Action Medication Rate 09/19/23 1554 New Bag prothrombin complex conc (human) four factor infusion 1,577 Units (KCENTRA) 504 mL/hr FFP Administrations During Encounter (Filter): EAP GENERAL TRANSFUSE FFP Medications Shown None Warfarin Administrations (last 168 hours) Date/Time Action Medication Dose 09/23/23 1717 No Dose Today warfarin (COUMADIN) NO Dose Today 09/22/23 1736 Given warfarin tablet 2 mg (COUMADIN) 2 mg 09/21/23 1839 Given warfarin tablet 2 mg (COUMADIN) 2 mg INR (no units) Date Value Status 09/24/2023 2.6 Final 09/23/2023 3.7 Final 09/23/2023 3.2 Final 09/22/2023 1.5 Final 09/21/2023 1.3 Final 09/20/2023 1.1 Final 09/19/2023 1.1 Final 09/19/2023 1.1 Final 09/19/2023 1.5 Final 09/19/2023 1.4 Final 09/19/2023 1.5 Final A/P: Very labile INR over past few days, suspect this could be due to drug interaction with amiodarone. INR has dropped essentially a full point after no dose last night. Will proceed with only 0.5 mg today. Warfarin order of 0.5 mg has been placed for today and the pharmacist team will continue tofollow patient's clinical progress daily until discharge from the hospital. Pamela Medina Pharm.D., R.Ph. Contact [phone] with any questions about this note. CAL INSTRUMENTS SUPERVISOR * Pamela Medina Pharm.D., R.Ph. - 09/24/2023 10:19 AM CST Clinical Pharmacist Progress Note Jong Harris is a 73 y.o. male admitted on 09/19/2023 who now presents to [id number] forpostoperative care. 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 Pharmacotherapy Plan: Hemodynamics: post bypass preserved biventricular function (LVEF 70%), no periprosthetic regurgitation. Off clevidipine, titrate beta leonora as tolerated. Amiodarone taper in place CAD s/p CABG: ASA 81 mg, atorvastatin 80 mg, and metoprolol. Hematologic: antiplatelet as above, warfarin for the mechanical aortic valve. Very labile INR with almost full point drop after no dose yesterday. Proceeding cautiously with 0.5 mg warfarin tonight. Will hold tonight's dose and recheck INR tomorrow. Continue SQH/warfarin. Renal: tamsulosin and finasteride resumed, MANJEET (unclear BL but appears to be 1.4-1.7), inaccurate UOP d/t undocumented voids Neuro: continues CUSTOM SKI MAKER ropinirole. Endo: BG have been < 180, DCS following and has SSI available. Prophylaxis: heparin subQ/warfarin, PPI (home med) Home scheduled meds on hold: cholecalciferol, cyanocobalamin, ferrous sulfate, metformin Pamela Medina Pharm.D., R.Ph. CAL INSTRUMENTS SUPERVISOR * Eloisa Oro M.S.N., Saul., R.N., GRISEL - 09/24/2023 10:19 AM OPTICAL INSTRUMENTS SUPERVISOR SUBJECTIVE project management it specialist Eloisa met with Mr and Mrs Harris to discuss the need for halfway rehab at discharge. A list of insurance approved facilities was given. The below referrals have been sent. OBJECTIVE To obtain referrals for halfway facilities at discharge. ASSESSMENT / PLAN Service Provider Request Status Selected Services Address Phone Fax Patient Preferred [facility] Pending - Request Sent N/A [address], [facility] [address] [phone] -- [facility] - Request Sent N/A [address] [facility] [id number] [phone] -- [facility] Pending - Request Sent N/A [address] [facility] [place] [facility] [id number] [phone] -- [facility] Declined [facility] is CLOSED N/A [address] [facility] [address] -- Current Capacity last updated by Christiana [place] on 08/15/2023 1413 [facility] has issued notice of closure. We cannot accept any new admissions. We will be having a short-term, private pay option in assisted living for clients who need PT/OT/ST (will be billed to their insurance). Referrals for this area need to go to [facility] living. This area will open 10/12/2023 [facility] Declined Facility cannot provide for patient's needs N/A [address] [place] [address] -- -- Damon Kraus, Saul., R.N., GRISEL 09/24/2023 CAL INSTRUMENTS SUPERVISOR * Laila Basurto P.A.-C. - 09/23/2023 4:38 PM CST SUBJECTIVE Jong Harris is a 73 y.o. male admitted on 09/19/2023 for coronary artery bypass grafting x 1, mechanical aortic valve replacement, MAZE, and left atrial appendage ligation with Dr. Miller. Comorbidities include severe aortic valve stenosis, hypertension, chronic kidney disease stage 3, hyperlipidemia, BPH, iron deficiency anemia, anemia of CKD, DMTII, h/o CVA, paroxysmal a fib. Hospital Course OR: Just after surgery and sternal closure on 09/20, Jong Harris was noted to have increased chest tube output. Due to persistent increased chest tube output, chest was re-opened. Small amount of clots from pericardium were evacuated. Hemostasis was achieved and chest was closed. Patient was transferred to ICU ICU: Patient arrived to ICU on 09/19 and was extubated. Inotrope was quickly weaned. Chest tube output remained appropriate. He was noted to have acute kidney injury and hyperkalemia. He was temporized with diuretic and Lokelma. He was started on beta-leonora. He was transitioned to PCU status on 09/21. PCU: On 09/22, he was given 1 unit RBCs for low hemoglobin. Chest tubes were removed per protocol. Medications were initiated and titrated as tolerated for optimal blood pressure and heart rate control. An amiodarone taper was initiated for atrial fibrillation prevention. His MANJEET continued to improve with conservative management. Warfarin was initiated for anticoagulation. He had an assisted falldue to lower extremity weakness on the evening of 09/22 with no injuries. His creatinine increased slightly again on 09/23 and his diuresis was held. 24 Hour Events: Jong Harris had an assisted fall last night due to lower extremity weakness. No injuries were reported and he continued to feel fine this morning. No new neurological deficits, no dizziness, no residual weakness. He overall feels well and his fatigue is improved from yesterday.His pain is well controlled. He continues to have hiccups frequently. He has had a BM postop. No concerns or questions at this time. Patient appeared to have very low urine output and repeat afternoon labs were ordered. His is having surgery on Sunday and he will not have help at home for assistance/transfers at that point. He has residual right sided weakness with a foot drop/slide from his previous stroke. They are considering SNF for discharge planning. OBJECTIVE I have reviewed the current vital sign data as applicable to this admission. DIAGNOSTICS I have reviewed relevant laboratory, imaging, and other diagnostics as applicable to this admission. PHYSICAL EXAM: General: Alert and oriented. In no acute distress. Skin: Warm and dry without acute rashes or lesions. Wound vac covers sternal incision. Chest tube sites covered. Eyes: Pupils reactive bilaterally. Conjunctivae pink. ENT: Neck supple. Trachea midline. Heart: Remains in sinus rhythm on bedside monitor. S1, S2 regular rate and rhythm without extra sounds, murmurs, rubs or gallops. Lungs: Respirations regular and easy. Clear and equal to auscultation. Abdomen: Soft, non-distended, non-tender, active bowel sounds. Extremities: No cyanosis noted, palpable pulses, trace lower extremity edema. Neuro: No focal neurological deficits present. LABS: Recent Results (from the past 24 hour(s)) Glucose, POCT Collection Time: 09/22/23 9:29 PM Result Value Glucose, POCT, B 159 (H) CBC without Differential Collection Time: 09/22/23 11:14 PM Result Value Hemoglobin 8.6 (L) Hematocrit 25.7 (L) Erythrocytes 2.89 (L) MCV 88.9 RBC Distrib Width 13.2 Platelet Count 146 Leukocytes 9.3 Basic Metabolic Panel Collection Time: 09/22/23 11:14 PM Result Value Potassium, P 4.4 Sodium, P 134 (L) Chloride, P 94 (L) Bicarbonate, P 28 Anion Gap, P 12 BUN (Blood Urea Nitrogen), P 40 (H) Creatinine 2.38 (H) Estimated GFR (eGFR) 28 (L) Calcium, Total, P 8.7 (L) Glucose, P 146 (H) Glucose, POCT Collection Time: 09/23/23 7:24 AM Result Value Glucose, POCT, B 147 (H) Site Capillary Last Intake 3-4 hours Hepatic Function Panel Collection Time: 09/23/23 7:31 AM Result Value Bilirubin, Total, S 0.5 Bilirubin, Direct, S <0.2 Aspartate Aminotransferase (AST), S 21 Alanine Aminotransferase (ALT), S 9 Alkaline Phosphatase, S 63 Albumin, S 3.0 (L) Protein, Total, S 4.9 (L) CBC without Differential Collection Time: 09/23/23 7:34 AM Result Value Hemoglobin 8.2 (L) Hematocrit 24.2 (L) Erythrocytes 2.67 (L) MCV 90.6 RBC Distrib Width 13.2 Platelet Count 147 Leukocytes 8.3 Prothrombin Time (PT) Collection Time: 09/23/23 7:34 AM Result Value Prothrombin Time, P 35.5 (H) INR 3.2 Basic Metabolic Panel Collection Time: 09/23/23 7:34 AM Result Value Potassium, S 4.5 Sodium, S 135 Chloride, S 98 Bicarbonate, S 29 Anion Gap 8 BUN (Blood Urea Nitrogen), S 39 (H) Creatinine 2.54 (H) Estimated GFR (eGFR) 26 (L) Calcium, Total, S 8.3 (L) Glucose, S 159 (H) Glucose, POCT Collection Time: 09/23/23 12:19 PM Result Value Glucose, POCT, B 169 (H) Site Capillary Last Intake 3-4 hours Prothrombin Time (PT) Collection Time: 09/23/23 3:44 PM Result Value Prothrombin Time, P 41.6 (H) INR 3.7 Hemoglobin Collection Time: 09/23/23 3:44 PM Result Value Hemoglobin 8.1 (L) Basic Metabolic Panel Collection Time: 09/23/23 3:44 PM Result Value Potassium, P 4.4 Sodium, P 136 Chloride, P 97 (L) Bicarbonate, P 30 (H) Anion Gap, P 9 BUN (Blood Urea Nitrogen), P 42 (H) Creatinine 2.54 (H) Estimated GFR (eGFR) 26 (L) Calcium, Total, P 8.9 Glucose, P 213 (H) Intake/Output Summary (Last 24 hours) at 09/23/2023 1658 Last data filed at 09/23/2023 1559 Gross per 24 hour Intake 680 ml Output 1275 ml Net -595 ml ASSESSMENT / PLAN #1 Stenosis Aortic Valve Acquired #2 Coronary Artery Disease Without Angina Pectoris #3 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 #4 Prosthesis Aortic Valve #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 Glomerular Filtration Rate (GFR) 30 To 44 (HCC) #6 Hyperlipidemia On Treatment #7 Benign Prostatic Hyperplasia Without Obstruction #8 Atrial Fibrillation Paroxysmal (HCC) #9 Diabetes Mellitus Type 2 (HCC) #10 Anemia In Chronic Kidney Disease #11 Hemiplegia Dominant Side Right (HCC) #12 Hypertension Essential Primary #13 Stroke Cerebrovascular Accident Personal History #14 Anemia Posthemorrhagic Acute (Blood Loss Anemia) #15 Failure Renal Acute (Acute Kidney Injury) (HCC) #16 Hyperkalemia #17 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 #18 Therapy Jail Antiplatelet #19 Thrombocytopenia Secondary #20 Device Cardiac Status Post Neuro: No acute concerns. Pain is well controlled. Currently on scheduled Tylenol and PRN oxycodone. Encourage topicals and ice/heat for pain as needed. Continue home ropinirole. He has residual right sided weakness and foot drop/slide from his previous stroke. PRN one time 2.5 mg dose of Baclofen a vailable for continued hiccups to assess tolerance. Cardiovascular: Hemodynamically stable in sinus rhythm with HRs in the 60s, SBPs in the 110s. Continue metoprolol 25 mg BID, amiodarone PO taper for atrial fibrillation, and statin therapy. Consider dismissal TTE tomorrow. Albumin 25% 100 mL for third spacing. Of note, patient has a previously placed loop recorder. Pulmonary: Maintaining adequate oxygen saturations on 1 L NC. Continue aggressive pulmonary hygiene. CXR this morning with small bilateral pleural effusions. Renal: Adequate urine output- I&O inaccurate due to undocumented voids. Clinically appears hypervolemic vs euvolemic, weight is up. Postoperative MANJEET. Creatinine increased to 2.54 from 2.38. Received Lasix 40 mg PO x1 this morning. Lasix held this evening due to signs of hypovolemia and worsening creatinine, monitor for ability to resume . Continue home Flomax. GI/Endocrine: Last BM Date: 09/23/23. Continue scheduled senna. PRN bowel regimen available. Continue Adult Diet Regular. Continue PPI for GI prophylaxis. DCS following for T2DM. LFTs ordered for huge increase in INR- results normal. Heme: Continue DVT prophylaxis with SCDs, ambulation, and anticoagulation regimen. Continue anticoagulation therapy with warfarin per pharmacy protocol. INR goal 2-3. INR today 3.2, repeat afternoon INR 3.7- held warfarin dose tonight. Continue antiplatelet therapy with ASA 81 mg. Hemoglobin 8.2, afternoon repeat stable. Platelets WNL. ID/Skin: No acute concerns. Post-operative antibiotic regimen complete. Maintain sternal incision wound vac until POD 5. Afebrile, WBC WNL. Continue LEATHA wraps to lower extremities when out of bed. Code Status: Full Code Disposition: Continue to monitor on the PCU. I directly examined/reviewed the plan of care of this patient with the contaminated land consultant surgeon, Dr. Miller. Anticipated dismissal date: 09/23-09/24. Anticipated destination: Home self-care or SNF. PT/OT following- patient has residual right-sided weakness from his stroke and will not have available assistance at home after his 's surgery next week. SW following for disposition planning. Barriers to discharge: INR Medication optimization MANJEET Dismissal testing May require homegoing oxygen Medication reconciliation completed. CAL INSTRUMENTS SUPERVISOR * Merle Reyes, PharmJarrettD., R.Ph. - 09/23/2023 2:17 PM CST Clinical Pharmacist Progress Note Jong Harris is a 73 y.o. male admitted on 09/19/2023 who now presents to [id number] forpostoperative care. 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 Pharmacotherapy Plan: Hemodynamics: post bypass preserved biventricular function (LVEF 70%), no periprosthetic regurgitation. Off clevidipine, titrate beta leonora as tolerated. Amiodarone taper in place CAD s/p CABG: ASA 81 mg, atorvastatin 80 mg, and metoprolol. Hematologic: antiplatelet as above, warfarin for the mechanical aortic valve. Large jump in INR 1.5-> 3.2. Will hold tonight's dose and recheck INR tomorrow. Renal: tamsulosin and finasteride resumed Neuro: continues CUSTOM SKI MAKER ropinirole. Endo: BG have been < 180, DCS following and has SSI available. Prophylaxis: heparin subQ/warfarin, PPI (home med) Home scheduled meds on hold: cholecalciferol, cyanocobalamin, ferrous sulfate, metformin Merle Reyes Pharm.D., R.Ph. CAL INSTRUMENTS SUPERVISOR * Marcela Lee APRN C.N.P., M.S.N. - 09/22/2023 11:04 PM CST Notified by nursing staff that patient has assisted to the floor. On arrival, patient was lying supine and alert. He was conscious the entire time. He denies dizziness or feeling passing out. Per bedside nurse, patient's knee weakened therefore patient was assisted to the floor. No injury noted. Patient did not hit his head. Neuro assessment intact. Will obtain CBC and BMP as he received 1 PRBC this morning for Hgb of 7.3. CAL INSTRUMENTS SUPERVISOR * Laila Basurto P.A.-C. - 09/22/2023 4:00 PM CST MEDIASTINAL AND PLEURAL CHEST TUBE REMOVAL: Mediastinal Chest Tube Removal The left medial and right medial mediastinal chest tube(s) were removed. An air leak was not present prior to removal. Mediastinal chest tube(s) were removed per protocol. Purse string sutures are not applicable. Patient tolerated the procedure without incident. Bilateral breath sounds were audible post-tube removal. An actuation system was not present. CAL INSTRUMENTS SUPERVISOR * Laila Basurto P.A.-C. - 09/22/2023 3:33 PM CST A[place]IN Harris is a 73 y.o. male admitted on 09/19/2023 for coronary artery bypass grafting x 1, mechanical aortic valve replacement, MAZE, and left atrial appendage ligation with Dr. Miller. Comorbidities include severe aortic valve stenosis, hypertension, chronic kidney disease stage 3, hyperlipidemia, BPH, iron deficiency anemia, anemia of CKD, DMTII, h/o CVA, paroxysmal a fib. Hospital Course OR: Just after surgery and sternal closure on 09/20, Jnog Harris was noted to have increased chest tube output. Due to persistent increased chest tube output, chest was re-opened. Small amount of clots from pericardium were evacuated. Hemostasis was achieved and chest was closed. Patient was transferred to ICU ICU: Patient arrived to ICU on 09/19 and was extubated. Inotrope was quickly weaned. Chest tube output remained appropriate. He was noted to have acute kidney injury and hyperkalemia. He was temporized with diuretic and Lokelma. He was started on beta-leonora. He was transitioned to PCU status on 09/21. PCU: On 09/22, he was given 1 unit RBCs for low hemoglobin. Chest tubes were removed per protocol. Medications were initiated and titrated as tolerated for optimal blood pressure and heart rate control. An amiodarone taper was initiated for atrial fibrillation prevention. 24 Hour Events: Jong Harris has had an uneventful 24 hours. He felt very weak and fatigued this morning just trying to walk around the end of his bed, he had to stop and rest. His pain has been well managed. He has urinated since allen removal. He has not had a BM postop but has been passing gas. Denies abdominal pain, nausea, or vomiting. He complains of continued hiccups, will reassess once chest tubes are removed and consider one-time dose of Baclofen to assess tolerance with MANJEET. His is having surgery next week and he will not have help at home for assistance/transfers at that point. He has residual right sided weakness with a foot drop/slide from his previous stroke. They are considering SNF vs [facility] for discharge planning. OBJECTIVE I have reviewed the current vital sign data as applicable to this admission. DIAGNOSTICS I have reviewed relevant laboratory, imaging, and other diagnostics as applicable to this admission. PHYSICAL EXAM: General: Alert and oriented. In no acute distress. Skin: Warm and dry without acute rashes or lesions. Wound vac covers sternal incision. Chest tubes in place. Central line in place. Eyes: Pupils reactive bilaterally. Conjunctivae pink. ENT: Neck supple. Trachea midline. Heart: Remains in sinus rhythm on bedside monitor. S1, S2 regular rate and rhythm without extra sounds, murmurs, rubs or gallops. Lungs: Respirations regular and easy. Clear and equal to auscultation. Abdomen: Soft, non-distended, non-tender, active bowel sounds. Extremities: No cyanosis noted, palpable pulses, trace lower extremity edema. Neuro: No focal neurological deficits present. LABS: Recent Results (from the past 24 hour(s)) Glucose, POCT Collection Time: 09/21/23 7:07 PM Result Value Glucose, POCT, B 141 (H) Site Capillary Last Intake <1 hour Glucose, POCT Collection Time: 09/21/23 10:52 PM Result Value Glucose, POCT, B 161 (H) Site Capillary Last Intake 2-3 hours Type and Screen (with Reflex Antibody ID) Collection Time: 09/22/23 7:01 AM Result Value ABORh A Neg Antibody Screen Negative Type & Screen Expiration 09/25/2023 23:59 Testing Location [facility] CBC without Differential Collection Time: 09/22/23 7:04 AM Result Value Hemoglobin 7.3 (L) Hematocrit 21.0 (L) Erythrocytes 2.36 (L) MCV 89.0 RBC Distrib Width 13.1 Platelet Count 129 (L) Leukocytes 9.2 Prothrombin Time (PT) Collection Time: 09/22/23 7:04 AM Result Value Prothrombin Time, P 16.7 (H) INR 1.5 Basic Metabolic Panel Collection Time: 09/22/23 7:04 AM Result Value Potassium, S 4.5 Sodium, S 135 Chloride, S 99 Bicarbonate, S 28 Anion Gap 8 BUN (Blood Urea Nitrogen), S 37 (H) Creatinine 2.38 (H) Estimated GFR (eGFR) 28 (L) Calcium, Total, S 8.5 (L) Glucose, S 141 (H) Glucose, POCT Collection Time: 09/22/23 7:34 AM Result Value Glucose, POCT, B 133 Site Capillary Last Intake 3-4 hours Glucose, POCT Collection Time: 09/22/23 11:27 AM Result Value Glucose, POCT, B 192 (H) Site Capillary Last Intake 1-2 hours Intake/Output Summary (Last 24 hours) at 09/22/2023 1536 Last data filed at 09/22/2023 1525 Gross per 24 hour Intake 1510 ml Output 2825 ml Net -1315 ml 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 Glomerular Filtration Rate (GFR) 30 To 44 ([facility]) #3 Hyperlipidemia On Treatment #4 Benign Prostatic Hyperplasia Without Obstruction #5 Atrial Fibrillation Paroxysmal ([facility]) #6 Diabetes Mellitus Type 2 ([facility]) #7 Anemia In Chronic Kidney Disease #8 Hypertension Essential Primary #9 Stroke Cerebrovascular Accident Personal History #10 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 #11 Prosthesis Aortic Valve #12 Coronary Artery Disease Without Angina Pectoris #13 Anemia Posthemorrhagic Acute (Blood Loss Anemia) #14 Failure Renal Acute (Acute Kidney Injury) ([facility]) #15 Hyperkalemia #16 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 #17 Therapy Final [employer] Antiplatelet Neuro: No acute concerns. Pain is well controlled. Currently on scheduled Tylenol and PRN oxycodone. Encourage topicals and ice/heat for pain as needed. Continue home ropinirole. He has residual right sided weakness and foot drop/slide from his previous stroke. Continues to complain of hiccups, consider one time low-dose Baclofen if it continues to assess tolerance with MANJEET. Cardiovascular: Hemodynamically stable in sinus rhythm with HRs in the 70s, SBPs in the 110s. Initiate amiodarone PO taper for atrial fibrillation Continue metoprolol 25 mg BID and statin therapy. Consider dismissal TTE tomorrow if discharging. Pulmonary: Maintaining adequate oxygen saturations on 2 L NC overnight. Continue aggressive pulmonary hygiene. Chest tubes were removed today. CXR ordered for tomorrow morning. Renal: Adequate urine output. Clinically appears hypervolemic, weight is up. Postoperative MANJEET- seems to have plateaued. Creatinine 2.38. Initiate Lasix 40 mg PO BID. Had hyperkalemia in the ICU, K today 4.5. Continue home Flomax. GI/Endocrine: Last BM Date: (Pre Op). Continue scheduled senna and MiraLAX. PRN bowel regimen available. Continue Adult Diet Full Liquid. Continue PPI for GI prophylaxis. DCS following for T2DM. Heme: Continue DVT prophylaxis with SCDs, SubQ heparin, ambulation, and anticoagulation regimen. Continue anticoagulation therapy with warfarin per pharmacy protocol. INR goal 2-3. INR today 1.5. Continue antiplatelet therapy with ASA 81 mg. No heparin bridging per Dr. Miller due to risk of bleeding . Hemoglobin 7.3 from 8.1- transfused 1 u RBCs today. No sign of active bleed. Platelets 129 [id number]. ID/Skin: No acute concerns. Post-operative antibiotic regimen complete. Maintain sternal incision wound vac until POD 5. Afebrile, WBC WNL. Will remove RIJ this evening. Continue LEATHA wraps to lower extremities when out of bed. Code Status: Full Code Disposition: Continue to monitor on the PCU. I directly examined/reviewed the plan of care of this patient with the contaminated land consultant surgeon, Dr. Miller. Anticipated dismissal date: 09/23-09/24. Anticipated destination: Pending PT/OT evaluation. PT/OT consulted for discharge planning- patient has residual right- sided weakness from his stroke and will not have available assistance at home after his 's surgery next week. SW following for disposition planning. Barriers to discharge: INR Medication optimization MANJEET Dismissal testing May require homegoing oxygen Medication reconciliation completed. CAL INSTRUMENTS SUPERVISOR * Purvi Wu, DJarrett, R.Ph. - 09/22/2023 12:37 PM CST Warfarin Dosing Warfarin Indication: Aortic valve - Mechanical Other indication (comments): No data recorded Type of therapy: New Prior average daily dose: No data recorded Comorbidities: Post-cardiac valve surgery Are any of these comorbidities new with admission? No data recorded Are there any new medication interactions with admission? No data recorded Target INR: 2 - 3 Day of therapy: 2 Notable drug interactions include the following: amiodarone Concurrent anticoagulation: SQH INR reversal agents: were not given INR (no units) Date Value Status 09/22/2023 1.5 Final 09/21/2023 1.3 Final 09/20/2023 1.1 Final 09/19/2023 1.1 Final 09/19/2023 1.1 Final 09/19/2023 1.5 Final 09/19/2023 1.4 Final 09/19/2023 1.5 Final 09/19/2023 1.7 Final INR is subtherapeutic at: 1.5 A warfarin order of 2 mg has been placed for today and the pharmacist team will continue to follow the patient's clinical progress daily until discharge from the hospital. Purvi Wu Pharm.D., R.Ph. CAL INSTRUMENTS SUPERVISOR * Dwayne Lew Pharm.D., R.Ph. - 09/21/2023 10:04 AM OPTICAL INSTRUMENTS SUPERVISOR Clinical Pharmacist Progress Note Jong Harris is a 73 y.o. male admitted on 09/19/2023 who now presents to [id number] forpostoperative care. 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 Pharmacotherapy Plan: Hemodynamics: post bypass preserved biventricular function (LVEF 70%), no periprosthetic regurgitation. Off clevidipine, titrate beta leonora as tolerated. CAD s/p CABG: ASA 81 mg, atorvastatin 80 mg, and metoprolol. Hematologic: antiplatelet as above, warfarin starting tonight for the mechanical aortic valve. Baseline INR 1.3 and not eating yet, so will start with 2 mg. Renal: NephroCheck result 0.45 (ng/mL)(2)/1000 (Ref range: <0.30 (ng/mL)(2)/1000) indicates Increased risk for MANJEET. Avoid NSAIDs, ARB/LEATHA- Inhibitors, vancomycin/aminoglycosides for at least the next 12 hours. Baseline SCr ~1.7. Resume tamsulosin and finasteride once Allen removed. Neuro: pain well controlled, continues [employer] ropinirole. Endo: BG have been < 180, DCS following and has SSI available. Prophylaxis: heparin subQ, PPI (home med) Home scheduled meds on hold: cholecalciferol, cyanocobalamin, ferrous sulfate, metformin Matthias Lew Pharm.D., R.Ph. CAL INSTRUMENTS SUPERVISOR * Enmanuel Edward P.A.-C. - 09/21/2023 4:19 AM CST SUBJECTIVE Jong Harris is a 73 y.o. male admitted on 09/19/2023 for coronary artery bypass grafting x 1, mechanical aortic valve replacement, MAZE, and left atrial appendage ligation with Dr. Miller. Comorbidities include severe aortic valve stenosis, hypertension, chronic kidney disease stage 3, hyperlipidemia, BPH, iron deficiency anemia, anemia of CKD, DMTII, h/o CVA, paroxysmal a fib. Hospital Course OR: Just after surgery and sternal closure on 09/20, Jong Harris was noted to have increased chest tube output. Due to persistent increased chest tube output, chest was re-opened. Small amount of clots from pericardium were evacuated. Hemostasis was achieved and chest was closed. Patient was transferred to ICU ICU: Patient arrived to ICU on 09/19 and was extubated. Inotrope was quickly weaned. Chest tube output remained appropriate. He was noted to have acute kidney injury and hyperkalemia. He was temporized with diuretic and Lokelma. He was started on beta-leonora. He was switched to PCU status on 09/21. 24 Hour Events: Jong Harris has had an uneventful 24 hours. Clevidipine was weaned off. Metoprolol was increased to 25mg PO BID. After Lokelma 5mg and Lasix IV 40mg, potassium decreased to 5.0. The midnight potassium increased to 5.3. Creatinine continued to rise to 2.42 at midnight. AM labs pending. OBJECTIVE I have reviewed the current vital sign data as applicable to this admission. DIAGNOSTICS I have reviewed relevant laboratory, imaging, and other diagnostics as applicable to this admission. PHYSICAL EXAM: General: Alert and oriented. In no acute distress Skin: Warm and dry without acute rashes or lesions. Eyes: Pupils reactive bilaterally. Conjunctivae pink. ENT: Neck supple. Trachea midline. Heart: Remains in sinus rhythm on bedside monitor. S1, S2 regular rate and rhythm without extra sounds, murmurs, rubs or gallops. Lungs: Respirations regular and easy. Clear and equal to auscultation. Diminished bilateral bases. Abdomen: Soft, non-distended, hypoactive bowel sounds. Extremities: No cyanosis noted, 2+ pulses, trace lower extremity edema. Neuro: No focal neurological deficits present. 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 Pain: No acute concerns. Pain is well controlled on scheduled Tylenol, PRN oxycodone, and PRN IV Dilaudid. Cardiovascular: Rhythm: NSR in the 80's. Function: postop EDMUNDO: good biventricular function. Preop atrial level shunt. Volume status: Admission weight 85.5kg. Yesterday's weight 90.1kg. Today's weight pending. +6.6L since admission per EMR. Today's goal fluid balance -1 to -2L. BP: Uptitrate metoprolol (not home med) prn. Currently on metoprolol 25mg BID. Pulmonary: Maintaining adequate oxygen saturations on 3L NC. Continue aggressive pulmonary hygiene. Renal: Adequate urine output with diuretic use. Creatinine continues to rise. Baseline creatinine 1.76. Hyperkalemia: Lasix IV 40mg BID. BMP q12hr. GI/Endocrine: BM: Last BM Date: (proep). Continue scheduled senna and MiraLAX. Diet: Continue Adult Diet Clear Liquid. Endocrine: Continue to monitor glucoses with sliding scale insulin. Consult DCS.. Heme: Continue DVT prophylaxis with SCDs and SubQ heparin. Continue antiplatelet therapy with ASA 81 mg. Discuss initiation of warfarin (for mechanical AVR with INR goal 2-3). ID/Skin: ABX: Afebrile, no acute concerns. Post-operative antibiotic regimen complete. LDA: Maintain sternal incision wound vac until POD 5. Removal of chest tubes will be discussed daily during round Remove a-line prior transfer to PCU R IJ introducer: keep until hyperkalemia resolves. Urinary allen: consider removing once hyperkalemia resolves PIV x 2 Code Status: Full Code Disposition: Continue PCU status. If hyperkalemia resolves, maybe transfer to PCU in the evening. Idirectly examined/reviewed the plan of care of this patient with the critical neonatal critical care nurse. Anticipated dismissal date: TBD. Anticipated destination: Home self-care. Barriers to discharge: Chest tubes Diuresis Medication optimization MANJEET Dismissal testing Oxygen Medication reconciliation completed. TIMP2/IGFBP7 MANJEET Risk Score, U Date Value Ref Range Status 09/20/2023 0.45 (H) <0.30 (ng/mL)(2)/1000 Final Comment: ----ADDITIONAL INFORMATION---- <0.30= <0.30 is considered low risk for acute kidney injury. 0.30-2.00= 0.30-2.00 indicates increased risk for acute kidney injury. >2.00= >2.00 indicates high risk for acute kidney injury. This value indicates increased risk. Continue to follow PROTECT algorithm protocol. CAL INSTRUMENTS SUPERVISOR * Kari Hook MDIV - 09/20/2023 1:58 PM CST [facility] Spiritual Care Progress Note Patient: Jong Harris Age:73 y.o. Location: [id number] Reason(s) for encounter: Spiritual Care contact to introduce spiritual care service and assess for potential spiritual care needs. Summary: I was able to meet with Jong Harris who was preparing to take a nap. He shared that he was surprised how easy surgery and recovery has gone. He is concerned about something with my kidneys. We explored mortality, hope, relationships, resentment and forgiveness. He appreciated the tough questions and opportunity to verbally process surfacing emotions. Spiritual Assessment Shinto Identification / Spiritual Practices: [employer] He attempted to find the name of his buddhist but could not remember. Coping and support: His and son had left before our visit. He attempted to use avoidance, changing the topic, and humor to cope with tough questions and good correctional classification counselor. Patient named his avoidant coping skills as he used them. Spiritual well-being, hopes and resources: I provided a peace booklet for devotion and a relaxation skills guide. Prayer was welcomed and provided. Spiritual Needs and/or Concerns: Surfacing emotions following existential distress. Patient found benefit in verbal processing thesedilemmas. Spiritual Care interventions: Introduced the role as member of the interdisciplinary care team and assessed spiritual care needs/concerns of patient and/or family Therapeutic and supportive listening was provided with the aim of allowing patient/family expression of emotions, hopes and worries regarding current medical condition and life stage. Provided pentecostalism reading material to sustain patient's truman/practice while in hospital Facilitated pentecostalism/spiritual practices (prayer, blessing, sacred texts, pentecostalism item) with theaim to reinforce patient's spiritual wellness and connection with source of sacredness. Spiritual Care outcomes: Patient/family became familiar with the role of spiritual care provider and identified spiritual care needs. Patient/family expressed feeling comforted by prayer Patient/family verbally processed fears and hopes regarding prognosis. Patient/family was appreciative of spiritual care support. Spiritual Care Plan / Recommendations: Will remain available for spiritual care as needed or requested. Chaplains can be contacted by paging [phone] ([place]) or [phone] (Judaism). CAL INSTRUMENTS SUPERVISOR * Dwayne Lew, Pharm.D., R.Ph. - 09/20/2023 10:02 AM OPTICAL INSTRUMENTS SUPERVISOR Clinical Pharmacist Progress Note Jong Harris is a 73 y.o. male admitted on 09/19/2023 who now presents to [id number] forpostoperative care. 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 Pharmacotherapy Plan: Hemodynamics: post bypass preserved biventricular function, no periprosthetic regurgitation. Remains on clevidipine, starting low dose beta leonora. CAD s/p CABG: ASA 81 mg, atorvastatin 80 mg, and metoprolol. Hematologic: antiplatelet as above, anticipate eventual warfarin per surgical team. Renal: NephroCheck result 0.45 (ng/mL)(2)/1000 (Ref range: <0.30 (ng/mL)(2)/1000) indicates Increased risk for MANJEET. Avoid NSAIDs, ARB/LEATHA- Inhibitors, vancomycin/aminoglycosides for at least the next 12 hours. Baseline SCr ~1.7. Resume tamsulosin and finasteride once Allen removed. Neuro: pain well controlled, confirmed with patient he takes ropinirole scheduled. Resumed as such to avoid abrupt discontinuation. Endo: BG have been < 180 and insulin infusion stopped. Could consider adding a SSI while oral agents are on hold. Prophylaxis: heparin subQ, PPI (home med) Home scheduled meds on hold: cholecalciferol, cyanocobalamin, ferrous sulfate, metformin Pharm. KarlaDJarrett, R.Ph. CAL INSTRUMENTS SUPERVISOR * Bryce Wills M.D. - 09/20/2023 7:06 AM CST Demographic Information Patient Name: Jong Harris Clinic Number: [id number] SUBJECTIVE Brief Patient Summary: Mr. Jong Harris is a 73-year-old man POD-1 after AoVR (23 mm OnX conformX), CABG (SVG to PDA) complicated by excessive bleeding due to friable tissue, which required transfusion of Plt (3 bags), FFP (1 unit), Cryo (2 bags) and Kcentra (15 units/kg). 24-hours event: Extubated, off pressors, started on clivedipine (now 4 mg/h) for HTN Chest tube output fluctuate between 20-50 ml/h Urine output drifting down from 75 to 25 ml/h now overall +7.5 L PMH is significant for: CVA (2019) - L basal gandlia infarct without residual deficite, PAFib, CKD stage 3 b GFR fluctuate between 37 and 54 HTN- lisinopril 2.5 mg a day HLP - atorvastatin HTN DM type 2 - on metformin XR 500 mg bid BPH- on finasteride and flomax Iron-deficiency anemia RLS- ropinirole OBJECTIVE Physical Exam: Alert and oriented x3 Neuro: No focal deficits. Sensation and strength maintained throughout. Eyes: PERRL. EOMI. No scleral injection. No ocular discharge. Heart: S1, S2, RRR, pericardial rub Lungs:coarse breath sound bilateraly Abdomen: non-tender, no BS yet Skin: no rashes or lesions, cool over feet Diagnostics: I have reviewed the recent vital signs, imaging, labs, and other diagnostics. Hb/Hct= 9.1/25.8, platelet count stabilized at 179,000 WBC=11.3, normal coagulation Uremia level relatively stable, BUN/creatinine-23/1.88 No significant electrolyte abnormalities, except hypermagnesemia - 2.7 Lactic acid cleared - 1.9 this am CXR: Compared to 09/19/2023. Extubation. Removal of right IJ SGC, sheath remains. Slightly decreased lung volumes. No other significant change. Pulmonary vascular congestion. Bibasilar atelectasis. No definite pneumothorax. Trace pneumomediastinum. Enlarged cardiac silhouette. Retrocardiac atelectasis/consolidation. Azygous fissure. Sternotomy. Mediastinal clips and drains. Loop recorder. ASSESSMENT / PLAN Mr. Jong Harris is a 73-year-old man with CKD (GFR=37-54) POD-1 after AoVR (23 mm OnX conformX), CABG (SVG to PDA) complicated by excessive bleeding due to friable tissue, which required transfusion of Plt (3 bags), FFP (1 unit), Cryo (2 bags) and Kcentra (15 units/kg). Pain: well controlled Sleep:may add melatonin Neuro: h/o L basal ganglia infarct in 2019, no residual RLS - will restart ropinirole, if get symptomatic CV: off pressors, in NSR, on clevidipine drip now, was on lisinopril at home, will hold lisinopril for now pending GFR dynamics, add metoprolol Pulm: extubated, doing fine Renal: pre-existing CKD with fluctuating GFR between 37 and 54, keep follow renal pannel, urine output. Trending down U/O now, will add lasix Diet/Nutr: clear liquids will liberate to full diet BM: no BS yet Endo: DM type 2, was on metformin at home (ItX4n=0.2) Heme: extensive bleeding in OR, required plt, cryo and Kcentra, normal coagulation parameters now, will follow up on labs and watch for chest tube output Will proceed with anticoagulation per cardiac surgery team recommendations ID: continue perioperative antibiotics PPx: pantoprazole prophylaxis T/L/D: RIJ/PA catheter, 3 tubes, Tiffany Wills ICU Fellow [id number] CAL INSTRUMENTS SUPERVISOR Associated attestation - Reji Kang M.D. - 09/20/2023 5:43 PM OPTICAL INSTRUMENTS SUPERVISOR I saw and evaluated the patient, participating in the [place] portions of the service. I reviewed the resident/fellow???s note. I agree with the resident/fellow???s findings and plan. 73-year-old gentleman with a history severe aortic stenosis and severe coronary artery disease who is status post mechanical AVR, CABG x1, Maze and left atrial appendage ligation on 09/19/2023. Overnight: Mr. Harris has been able to come off his clevidipine without any issue. He reports well-controlled pain. He is saturating well on 2 L nasal cannula. #1 Severe aortic stenosis status post mechanical AVR on 09/19/2023 #2 Coronary artery disease status post CABG x1 (SVG to PDA) on 09/19/2023 #3 Acute blood-loss anemia secondary to Coagulopathy, improving #4 Paroxysmal atrial fibrillation status post Maze and left atrial appendage ligation on 09/19/2023 #5 Acute Thrombocytopenia #6 Hypertension #7 CKD stage 3 #8 Diabetes mellitus type 2 #9 Hyperlipidemia #10 CVA 2019 with residual right-sided deficit #11 Electrolyte abnormalities Mr. Harris continues to show improvement on postop day 1. He is off all vasoactive medications and it is mentating appropriately. His pain appears to be well controlled. He is participating with physical therapy and bedside nursing cares without any issues. His urine output has diminished slightly with an increase in his creatinine. We will continue to trend renal function tests with serial BMPs. He requires a Allen catheter for strict output monitoring. We will likely trial diuresis later this morning. Our fluid balance goal will be negative 500 mL to -1 L. No blood products are needed currently, we still we will trend CBC and coagulation studies while in the ICU. * Ann-Marie Queen M.D. - 09/19/2023 5:26 PM CST SUBJECTIVE Chief Complaint/Reason for Consultation: Admitted to the post Cardiac Surgical ICU POD 0 after undergoing AVR, CABG History of Present Illness: The patient is located in [facility], room 730. I have seen and evaluated the patient. I have reviewed available labs and imaging. I have discussed the plan with the critical care team and cardiac surgery. Jong Harris is a 73 y.o.male with history of severe aortic stenosis, severe coronary artery disease (proximal RCA 80% occluded, first diagonal 80% occluded by cath but discrepant by CT) who underwent mechanical AVR (On X), CABG x1 (SVG to PDA), Maze and left atrial appendage ligation on 09/19/2023. The 1st diagonal was deemed not diseased to the extent bypass was needed. Additional relevantpast medical history includes hypertension, hyperlipidemia, paroxysmal AFib, CKD stage 3, BPH, type2 diabetes mellitus, and a prior CVA of the left lateral basal ganglia in 2019 with no residual deficits. In regards to intraoperative details, the patient was induced after which time the airway was secured described as a difficult mask but grade 1 view on DL. Standard lines were placed. From a surgicalstandpoint, the case was reportedly notable for coagulopathy requiring 2 units of platelets, 1 FFP and 2 PRBCs. The patient from bypass with epinephrine and norepinephrine but these were weaned off without difficulty. Post-bypass echo demonstrated no prosthetic or periprosthetic regurgitation, aortic valve prosthetic gradient of 9, EF 70%, normal RV function. CI after chest close was 2.6. Epicardial wires were/were not placed with a cheesh-na rhythm of SR. Ultimately, due to persistent bleeding/high chest tube output prior to leaving the OR, his chest was re-opened. EDMUNDO noted tamponade. No bleeding source was identified, but hemostasis was satisfactory enough that his chest was closed again. CI at that time 2.1. The patient was transferred to the Intensive Care Unit for further management. The patient arrived intubated and sedated. Hemodynamics were modestly hypotensive on arrival with epi 0.02 running. Norepi started at 0.02 for MAP 55. RA was 12, PA 43/20. Post ICU admission CI 2.65 and SVRI 1360. Bypass Times: 2 hours and 39 minutes Epicardial Pacer Leads: None Chest Tubes: 2 mediastinal Blood Products: 4 PRBCs, 3 units of platelets, 1 FFP, 2 cryo, Kcentra 15 U/kg Intraop Fluids: crystalloid 5 L, UOP 350 mL, cell saver 314 mL, UF 700 mL Infusions: Epi 0.02 Norepi 0.02 Propofol at 40 TXA Insulin Past Medical/Surgical History: Please see above under history of present illness. PHYSICAL EXAM: I have reviewed the current vital sign data as applicable. General: Lying supine in bed with head of the bed elevated approximately 15??. No elicited or spontaneous movements appreciated. Pupils approximately 3 mm and symmetric. Pale. HEENT: Oral endotracheal tube indwelling on mechanical ventilation. CV: SR 70s Pulm: Bilateral breath sounds. Chest tubes with small quantity of serosanguineous output. Abdomen: Soft, nondistended. Extremities: Warm well perfused, no significant upper or lower extremity edema appreciated. DIAGNOSTICS I have reviewed the current vital sign data, imaging, and labs. ASSESSMENT / PLAN #1. Status post mechanical AVR (On X), CABG x1 (SVG to PDA), Maze and left atrial appendage ligation on 09/19/23 #2. Chest re-opened in the OR for bleeding (shortly after closure POD #0, had not left the OR yet),no source found, bleeding improved #3. Need for oral endotracheal intubation and mechanical ventilation the immediate postop period. #4. Severe aortic stenosis status post 1. #5. Severe coronary artery disease status post 1 #6. Paroxysmal atrial fibrillation #7. History of hypertension #8. Hyperlipidemia #9. CKD stage 3 #10. Type 2 diabetes mellitus #11. BPH #12. 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 Acute blood loss anemia #14. Multifactorial coagulopathy due to cardiopulmonary bypass, dilution, consumption, loss, not DIC #15. Reactive hyperglycemia #16. Reactive leukocytosis #17. Hypokalemia #18. Hypocalcemia Plan by Systems: 1.) Neurologic: Prior CVA 2019, but no residual deficits, though intermittent foot drop reported - unclear side. Currently sedated on a propofol infusion. Anticipate working towards extubation overnight if no recurrent bleeding develops. Multimodal analgesia plan including acetaminophen, low dose opioids, Lidoderm patch, and ketamine for rescue analgesia if necessary. 2.) Cardiovascular: Some vasodilation evident: added norepi. Modest CI for epinephrine dose. May still be volume seeking. Very thick myocardium will likely require higher filling pressures to be adequately filled. Wean vasoactives/inotropes by invasive hemodynamics. MAP goal greater than 70 (CKD 3, high risk for MANJEET). No ASA tonight given bleeding per CVS. Statin tomorrow. Beta-leonora when hemodynamically appropriate. Rhythm is currently SR, but has a history of paroxysmal atrial fibrillation.No epicardial wires. 3.) Pulmonary: Not a difficult airway. Currently intubated and sedated on mechanical ventilation. Plan on lung protective mode of mechanical ventilation, compliance with the VAP bundle, repeat CXR inthe morning. 4.) Renal: CKD stage 3: Maintain MAP of 70, cardiac index 2.5 or greater, optimize preload. He is at high risk for MANJEET. Follow up Nephrocheck. Replace electrolytes as indicated. Allen catheter to remain indwelling for close monitoring of UOP. He is a history of BPH and takes finasteride at home. 5.) GI/Hepatobiliary: Currently NPO, will advance diet as tolerated once extubated. PPI daily (homemed). Bowel regimen. 6.) Heme: Intraoperative clinical and laboratory coagulopathy: Follow-up routine post-operative coagulation studies and transfuse as indicated. Follow chest tube output closely. Anticoagulation will be necessary at a later date and at the discretion of CV surgery (indication: mechanical aortic valve and atrial fibrillation). Aspirin tomorrow, not tonight. DVT ppx SCDs today, SQH tomorrow. 7.) Infectious Diseases: Cefazolin for periprocedural prophylaxis, will monitor for trends in WBC and for fevers. 8.) Endocrine: History of type 2 diabetes mellitus: Insulin coverage to maintain a goal blood glucose < 180 mg/dL. 9.) MSK: Physical and occupational therapy as tolerated when able. 10.) LDAs: Radial arterial line, RIJ double lumen introducer with a PAC, Oral ETT, Allen catheter, 2 mediastinal chest tubes. These lines have been reviewed and are necessary for ongoing cares. 11.) Prophylaxis: Stress ulcer prophylaxis with PPI. DVT prophylaxis with SCDs for now. 11.) Code Status: Full Code Critical care time: 45 min CAL INSTRUMENTS SUPERVISOR * Yuriy Wilson, Ryan.R.Anali., L.R.T. - 09/19/2023 5:18 PM CST 1710: Pt. Arrived from OR intubated w/ 8.0 ett , secured at 22cm @ lip with twill tie. Pt. Placed on ASV 100%, peep 8, fio2 50%. Will adjust settings and wean as appropriate based on patients condtion. CAL INSTRUMENTS SUPERVISOR * Garrett Bahena PharmJarrettD., R.Ph. - 09/19/2023 1:18 PM CST Clinical Pharmacist Progress Note Procedure during this stay: 09/19/23 AVR (On-X conform 23 mm Mechanical), CABG x 1 (RSVG-PDA), ligation LA appendage, LA maze OBJECTIVE Home medications: acetaminophen, aspirin, atorvastatin, B12, ferrous sulfate, finasteride, metformin XR, pantoprazole, ropinirole, tamsulosin Assessment: AVR (mechanical) Needs warfarin to INR goal 2.5 lifelong ACC 2020 guidelines), Consider heparin iv bridge until INR therapeutic CABG LVEF 67% on 08/17/23 ECHO, Lipid panel 08/21/23 Chol 120, TG 94, HDL 44, LDL 58 Needs aspirin 81 mg 6 hours post op then daily Continue atorvastatin 80 mg qhs Add a beta leonora for AF prophylaxis when able per ACC post CABG guidelines 2020 PAF start warfarin post op. Consider heparin iv bridge until INR therapeutic BPH resume tamsulosin 0.4 mg po qhs when UCO'd and taking oral medications. Do Not open or crush capsules DM type II keep glucose < 180 CVA Hemiplegia R side, aphasia HTN JNC 8 blood pressure goal < 140/90, ACC goal < 130/80 CKD 3b Garrett Bahena Pharm.D., R.Ph. CAL INSTRUMENTS SUPERVISOR documented in this encounter H&P Notes * Jenny Stanford M.B., B.Ch., B.A.O. - 09/19/2023 6:36 AM CST INTERVAL HISTORY AND PHYSICAL PRE-PROCEDURE UPDATE H&P reviewed. The patient was examined and there are no significant changes to the H&P. Misty Howe, BKolby., B.A.O. CAL INSTRUMENTS SUPERVISOR Source Note - Elvi Lundberg MPAS PArnaldo. - 09/18/2023 9:45 AM OPTICAL INSTRUMENTS SUPERVISOR Jong Harris : 1950 Visit Date: 09/18/23 REFERRING PHYSICIAN: No ref. provider found Home talent director: [facility] primary care provider: Dr. Adam Cotto [place], [place] SUBJECTIVE CHIEF COMPLAINT / REASON FOR CONSULT Preoperative evaluation and education. HISTORY OF PRESENT ILLNESS Jong Harris is a 73 y.o. male who presents for a visit today prior to scheduled surgery. has a cardiac history significant for severe aortic valve stenosis (mean gradient 44 mm Hg, JOANA 0.90 cm^2, per TTE 08/17/2023), hypertension, chronic kidney disease stage 3, hyperlipidemia, BPH, iron deficiency anemia, and CVA (left lateral basal ganglia infarct April 2019). Please see Dr. Flores's documentation dated 08/19/2023 for additional information. Patient presented to [place] ED for chest discomfort on 08/19/2023. Patient explains he was eating lunch when he developed sudden onset of chest tightness and pressure. Patient was hospitalized from 08/19/23-08/22/23 he had a comprehensive cardiac work up performed. His echocardiogram showed severe with gradient 44 mmHg and valve area 0.90 cm2, and LVEF of 67%. Of note, he had moderate with gradient 21 mmHg and valve area 1.43 in March of 2019 (patient was not aware of this). Patient's cardiac angiogram on 08/21/2023 showed: The proximal right coronary artery is 80% obstructed by a discrete lesion. The first diagonal branch is 80% obstructed by a discrete lesion. The distal segment is large size. During patient's hospitalization he met with Dr. Miller who discussed SAVR vs TAVR, patient and his preferred a SAVR approach with a mechanical valve. Patient explains that over the past few months he has had increased shortness of breath with exertion. He mostly notices this with stairs, patient can go up two flights of stairs and then pants at the top. He does not have any limitations when it comes to walking on flat ground. Patient has had worsening fatigue over the past few months, every time he sits down he takes a nap. Patient occasional ly has vertigo which he relates to his previous stroke. Patient has a history of paroxysmal atrial fibrillation, he can not feel when he is in atrial fibrillation. He has never needed to be cardioverted or seen in the emergency department for atrial fibrillation. Patient denies symptoms of orthopnea, PND, palpitations, edema, syncope. 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 Glomerular Filtration Rate (GFR) 30 To 44 (HCC) Hyperlipidemia On Treatment Benign Prostatic Hyperplasia Without Obstruction Atrial Fibrillation Paroxysmal (HCC) Diabetes Mellitus Type 2 (HCC) Anemia In Chronic Kidney Disease Hemiplegia Dominant Side Right (HCC) Hypertension Essential Primary Stroke Cerebrovascular Accident Personal History Past Medical History: Diagnosis Date Aphasia 04/11/2019 Atrial Fibrillation Unspecified (HCC) Basal Cell Carcinoma Skin Other Parts Face 08/19/2023 Diabetes Mellitus Type 2 (HCC) Hyperlipidemia Hypertension NOS Murmur Heart Pain Shoulder Right 04/11/2019 Squamous Cell Carcinoma Skin Other Parts Face 08/19/2023 Stenosis Aortic Valve Acquired Stroke (HCC) Past Surgical History: Procedure Laterality Date CATH ANGIOGRAM N/A 08/21/2023 Procedure: CORONARY ANGIOGRAPHY; Surgeon: Ezequiel Jack M.D.; Location: [facility] Family History Problem Relation Age of Onset Lymphoma Mother Heart disease Father No Known Problems Sister Alzheimer's disease Brother No Known Problems Brother Diabetes Maternal Grandfather Heart attack Maternal Grandfather age 60s Prostate cancer Paternal Grandfather Bicuspid aortic valve Daughter Bicuspid aortic valve Son AVR - Aortic valve replacement Son The patient does have a family history of early coronary artery disease (men < age 55, women < age 65). Social History Tobacco Use Smoking status: Former Types: Cigarettes Smokeless tobacco: Never Tobacco comments: Smoked recreationally over 40 years ago - a few cigarettes once in a while. Substance Use Topics Alcohol use: Never ALLERGIES / CONTRAINDICATIONS No Known Allergies CURRENT MEDICATIONS Current Medications: acetaminophen (TYLENOL) 500 mg tablet, Take 1,000 mg by mouth every 6 (six) hours as needed for pain. aspirin 81 mg chewable tablet, Chew 1 [...] daily. finasteride (PROSCAR) 5 mg tablet, Take 5 mg by mouth daily. metFORMIN XR (GLUCOPHAGE-XR) 500 mg 24 hr tablet, Take 1 tablet (500 mg total) by mouth 2 (two) times a day with meals. mupirocin (BACTROBAN) 2 % ointment, Apply a pea sized amount to each nostril the night before and morning of surgery pantoprazole (PROTONIX) 40 mg EC tablet, Take 1 tablet (40 mg total) by mouth every morning before breakfast. rOPINIRole (REQUIP) 0.5 mg tablet, Take 0.5 mg by mouth 3 (three) times a day. tamsulosin (FLOMAX) 0.4 mg 24 hr capsule, Take 0.4 mg by mouth at bedtime. REVIEW OF SYSTEMS Negative for seizure, thyroid issues, asthma or other lung problems, sleep apnea, history of blood clotting or bleeding disorders, swallowing problems or history of esophageal stricture, history of stomach ulcer or bleed, bowel concerns, liver issues, difficulty with urination, muscle or joint problems. No reported skin alterations or recent weight changes. No steroids or blood transfusions within the last three months. No unaddressed pain or mental health concerns. Last visit to the dentist 09/13/2023, patient had treatment completed on 09/17/2023. He has recurrent tooth decay on tooth 4. In 20 both were treated and restored. No decay present at this time. Patient also has generalized gingivitis present but treated with cleaning. No infection or other concerns. Dental clearance form scanned into the EMR. Positive for: as per HPI, PMHx, and PSHx. Stroke 5 years ago with residual right-sided weakness/foot drop. BPH, currently well controlled with medication Patient has never had anesthesia CKD stage 3 Anemia of chronic disease OBJECTIVE VITAL SIGNS Temperature: [36.6 ??C] 36.6 ??C Blood Pressure: (143)/(81) 143/81 SpO2: [97 %] 97 % Height: [173.2 cm] 173.2 cm Weight: [85.6 kg] 85.6 kg BSA (Calculated - sq m): [2.03 sq meters] 2.03 sq meters BMI (Calculated): [28.6 kg/m??] 28.6 kg/m?? Pulse Rate: [80] 80 PHYSICAL EXAMINATION General: Alert and oriented. No acute distress. Cardiovascular: Regular rate and rhythm, 4/6 systolic murmur. Respiratory: Lungs are clear to auscultation bilaterally. No wheezes, rales, or rhonchi heard Extremities: Warm. Tibialis posterior pulses noted at 2/4. Trace pitting edema bilaterally. No varicosities. DIAGNOSTICS I have reviewed the patient's current laboratory results, chest x-ray, EKG, and echocardiogram. Labs: Lab Results Component Value Date WBC 5.2 09/18/2023 RBC 3.94 (L) 09/18/2023 HGB 12.0 (L) 09/18/2023 HCT 35.8 (L) 09/18/2023 PLT 182 09/18/2023 MCV 90.9 09/18/2023 RDW 12.2 09/18/2023 Lab Results Component Value Date NA 141 09/18/2023 NA 140 08/19/2023 KSERUM 4.5 09/18/2023 CL 106 09/18/2023 CL 104 08/19/2023 BUN 20 09/18/2023 BUN 22 08/19/2023 CREATININE 1.76 (H) 09/18/2023 CREATININE 1.78 (H) 08/19/2023 Lab Results Component Value Date EF 67 08/17/2023 Cardiac catheterization 08/21/2023 CORONARY DIAGNOSTIC SUMMARY Coronary artery dominance is right. Normal left main coronary. The middle left anterior descending artery is 20% obstructed by a discrete lesion. The first diagonal branch is 80% obstructed by a discrete lesion. The distal segment is large size. The proximal circumflex artery is 20% obstructed by a discrete lesion. The distal segment is normalsize. The first obtuse marginal is 10% obstructed by a tubular lesion. The proximal right coronary artery is 80% obstructed by a discrete lesion. The distal right coronary artery is 30% obstructed by a discrete lesion TTE 08/17/2023 Final Impressions 1. Normal left ventricular chamber size. 2. Calculated 2-D linear left ventricular ejection fraction 67%. 3. No regional wall motion abnormalities. 4. Grade 1/3 left ventricular diastolic dysfunction, consistent with low to normal left ventricularfilling pressure. 5. Normal right ventricular chamber size. 6. Normal right ventricular systolic function. 7. Severe aortic valve stenosis. 8. Aortic valve systolic mean Doppler gradient 44 mmHg. 9. Aortic valve area by Doppler 0.90 cm2. 10. Trivial aortic valve regurgitation. 11. Trivial mitral valve regurgitation. 12. Trivial tricuspid valve regurgitation. CT Chest angio 09/05/2023 IMPRESSION: 1. Moderate calcified atherosclerotic plaque involving the arch and descending thoracic aorta. Minimal calcification is present in the ascending aorta. 2. No dissection, penetrating atheromatous ulcer, or stenosis. Thoracic aortic measurements included in the findings section. 3. Severe aortic valve calcification compatible with aortic stenosi EKG IMPRESSION: Normal sinus rhythm Normal ECG No previous ECGs available Reviewed by MARIELA Khanna Chest x-ray IMPRESSION: No focal pulmonary infiltrates or pleural effusions. Azygous fissure. Heart size within normal limits. Aortic calcification. Loop recorder in the anterior chest wall. Degenerative and hypertrophic changes in the spine. 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 Harris is scheduled for aortic valve replacement, possible aortic root enlargement, left atrial appendage ligation, pulmonary vein isolation, and CABG x1 (RCA--Vein) with Dr. Miller on 09/19/2023. Case listing was updated. Intraoperative orders were placed. EEG not needed. Valve types were discussed in detail. The patient has chosen a mechanical valve. Last dose of aspirin was today Other medications that are being held for surgery: metformin (last dose 09/18/2023) Over the counter vitamins and supplements were discontinued one week ago. The patient has been instructed to hold all medications on the morning of surgery Preoperative rapid recovery criteria: Preoperative rapid recovery criteria: Patient does not meet preoperative inclusion criteria for rapid recovery pathway due to the following: Age >70 (unless robotic procedure) For anesthesia: Patient should receive metoprolol prior to surgery Patient has a loop recorder that was placed in 2019 which is non-functioning any more Patient has a hx of a stroke, residual right sided weakness BPH, currently well controlled with medication Patient has never had anesthesia, no family history of problems with anesthesia CKD stage 3 Anemia of chronic disease (current Hg 12.0) DM 2 For postoperative care: Consult social scientist on the inpatient setting, patient's is having knee surgery 1 week after patient's surgery Patient has a loop recorder that was placed in 2019 which is non-functioning any more Patient has a hx of a stroke, residual right sided weakness BPH, currently well controlled with medication Patient has never had anesthesia, no family history of problems with anesthesia CKD stage 3 Anemia of chronic disease (current Hg 12.0) DM 2 Caprini Total Score: 11 The patient is at high risk for postoperative DVT or PE. Mechanical prophylaxis recommended at the time of procedure AND mechanical and chemoprophylaxis are recommended during postoperative hospitalization, unless there are contraindications. PATIENT EDUCATION Patient is ready to learn, no apparent learning barriers were identified; learning preferences include listening and visual aids. I/nursing have reviewed the preoperative instructions in detail. Postoperative course and recovery were discussed. All questions answered. The following were provided and reviewed: Checklist for Surgical Patients (MC 3596) pamphlet; Your guide to Cardiac Surgery [id number]; Surgical Site Infection: Reducing Your Risk (MC 6471); Central Venous Catheter Infection: Reducing Your Risk (HM1035). Patient instructed to report to [facility] for Bactroban prescription. Application instructions provided. Preoperative diet and medication instructions given. Instructed to report to admissions desk for hospital pre-admissions. Patient verbalized understanding of instructions and all questions were answered. CONSENT The risks, benefits, and alternatives to the planned procedure were discussed in detail, including the risk of exposure to COVID-19 within the facility. All questions pertaining to the procedure and these risks were answered and the patient agreed to proceed. Informed consent was reviewed in detailand signed by the patient. Thank you for the opportunity to participate in the care of this patient. I personally spent 45 minutes in care of the patient today. Time includes both [id number] patient care. MADHAV Chong, P.A.-C. CAL INSTRUMENTS SUPERVISOR documented in this encounter Consult Notes * Karin Mclaughlin, JOELN, LD - 09/26/2023 12:05 PM CSTAssociated Order(s): IP CONSULT TO DIETITIAN Clinical Nutrition: Initial Assessment Clinical Nutrition was requested to evaluate patient for length of stay nutrition assessment per protocol (noted CKD with elevated phosphorus or potassium) SUBJECTIVE Mr. Harris is a 73 y.o. male admitted for Stenosis Aortic Valve Acquired Nutrition related medical/surgical history: severe aortic stenosis, HTN, CKD 3, HLD, BPH, iron deficiency anemia, hx L lateral basal ganglia infarct with residual R sided hemiplegia (2019), T2DM, RLS Patient was not available at junior under[facility] attempts to visit today. Per EMR, patient is discharging hometoday. Will follow up later this week for a visit if patient remains admitted. Current Nutrition (since admission): Variable PO intake since admission per EMR - 25-100% meals intakes documented. Percentage of Meals Eaten for the past 72 hrs: Percent Meals Eaten (%) 09/26/23 0800 75 09/25/23 1800 50 09/25/23 1300 50 09/25/23 0900 100 09/24/23 1751 25 09/24/23 1343 25 09/24/23 1000 75 Nutrition history: Unable to obtain diet history today. Food Allergies: NKFA per EMR OBJECTIVE Current nutrition orders: Dietary Orders (From admission, onward) Start Ordered 09/23/23 0738 Adult Diet Regular Diet effective now Question: Diet texture: Answer: Regular 09/23/23 0737 09/19/232338 Advance diet as tolerated Until discontinued Comments: Advance patient to the target diet when the following criteria are met: stooling Question Answer Comment Starting Diet Clear [employer] Diet: Regular 09/19/232338 Skin integrity: Wound 09/19/23 Incision Sternum (Active) Date First Assessed/Time First Assessed: 09/19/23 09 Present on Original Admission: No Primary Wound Type: Incision Location: Sternum Wound 09/19/23 Incision Knee Anterior;Left (Active) Date First Assessed/Time First Assessed: 09/19/23 0910 Present on Original Admission: No Primary Wound Type: Incision Location: Knee Wound Location Orientation: Anterior;Left Wound 09/19/23 Incision Thigh Anterior;Left;Proximal (Active) Date First Assessed: 09/19/23 Present on Original Admission: No Primary Wound Type: Incision Location: Thigh Wound Location Orientation: Anterior;Left;Proximal Pertinent Labs: Results from last 7 days Lab Units 09/26/23 1137 09/26/23 0658 09/23/23 1544 09/23/23 0731 09/21/23 0511 SODIUM P mmol/L -- -- 136 -- 135 SODIUM mmol/L -- 141 -- -- -- NABS SODIUM mmol/L -- -- -- -- -- POTASSIUM mmol/L -- 4.4 -- -- -- POTASSIUM KBS mmol/L -- -- -- -- -- POTASSIUM P mmol/L -- -- 4.4 -- 5.1 CHLORIDE P mmol/L -- -- 97* -- 101 CHLORIDE mmol/L -- 101 -- -- -- BICARBONATE PLASMA mmol/L -- -- 30* -- 27 BICARBONATE S mmol/L -- 31* -- -- -- ANION GAP P -- -- 9 -- 7 ANION GAP -- 9 -- -- -- BUN P mg/dL -- -- 42* -- 33* BUN mg/dL -- 32* -- -- -- CREATININE mg/dL -- 2.41* 2.54* -- 2.39* ESTIMATED GFR EGFR mL/min/BSA -- 28* 26* -- 28* GLUCOSE mg/dL -- -- -- -- -- GLUCOSE P mg/dL -- -- 213* -- 166* GLUCOSE S mg/dL -- 151* -- -- -- POC GLUCOSE mg/dL 190* -- -- -- -- CALCIUM P mg/dL -- -- 8.9 -- 8.9 CALCIUM mg/dL -- 8.5* -- -- -- ALBUMIN g/dL -- -- -- 3.0* -- PHOSPHORUS INORGANIC mg/dL -- -- -- -- 5.4* < > = values in this interval not displayed. Medications: acetaminophen OR [DISCONTINUED] acetaminophen [COMPLETED] amiodarone FOLLOWED BY amiodarone FOLLOWED BY [START ON 09/30/2023] amiodarone aspirin atorvastatin finasteride furosemide insulin aspart ipratropium-albuteroL metoprolol tartrate [DISCONTINUED] pantoprazole OR pantoprazole rOPINIRole sennosides-docusate sodium OR [DISCONTINUED] sennosides tamsulosin Anthropometrics: Height: 173 cm Admission Weight: 85.8 kg (09/19/2023) Current Weight: 87.9 kg Adjusted Body Weight : 72.7 Kg BMI (Calculated): 29.4 kg/m?? Weight change since admission: 2.1 kg Weight Change History: Per EMR, weight has been trending up recently. Patient weighed 82.6 kg on 08/22/23 and 87.9 kg on 09/26/23. Estimated Needs: Total Calorie Needs: 8215-6621 calories/day Method to Estimate Energy Needs: [place]-St Jeor ( basal to basal + 10% ) Weight Used for Equation Calculations: 87.9 kg Total Protein Needs: 59 - 73 grams/day (Method to Estimate Protein Needs (g/kg): 0.8 - 1 gm/kg) Weight Used to Calculate Protein Needs (Kg): 73.3 kg (adjusted BW) Nutrition Diagnosis: Altered nutrition-related laboratory values related to CKD as evidenced by hyperphosphatemia ASSESSMENT / PLAN Nutrition Intervention: Other (none at this time; will monitor lab values/PO intake and provide interventions as indicated if patient remains admitted) Recommendations: No changes at this time; continue current nutrition orders Monitoring/Evaluation: Nutrition parameter to monitor: Meals/Supplement Intake, Weight Status, Pertinent Labs Desired Outcome: Consume adequate nutrition orally Patient Goal(s): Consume at least 75% of 3 meals daily Clinical Nutrition will continue to follow. For questions about patient's nutritional care please contact pager [phone] on weekdays 07:30-16:00 or [phone] on weekends/holidays. CAL INSTRUMENTS SUPERVISOR * Ginette Cervantes, [facility] - 09/24/2023 10:41 AM CSTAssociated Order(s): IP CONSULT TO CARDIAC REHABILITATION Cardiac Rehabilitation Referral Reason for Visit: Cardiovascular Health Clinic consultation for referral to cardiac rehabilitation. Liaison met with the patient/family to discuss cardiac rehabilitation referral. Patient/family was provided with progressive verbal and printed home-going exercise guidelines. Patient/family understands and agrees with the exercise guidelines. 1. Participation in a Phase II cardiac rehabilitation program is recommended. Patient was informed about what cardiac rehabilitation has to offer and why it is beneficial. The plan of care for the rehabilitation program consists of risk factor modification, monitored and supervised exercise and assistance in the recovery process with ongoing education and support. Patient is interested in attending a cardiac rehabilitation program. 2. Eligibility: CABG and Heart valve surgery 3. Exceptions/exclusions: None. 4. Referral: Patient agreed with referral to a cardiac rehabilitation program. Please see dischargeorder and/or letter for program details. 5. Appropriate referral information will be sent to the receiving cardiac rehabilitation program asapplicable. Patient provided verbal authorization to send relevant materials to the cardiac rehab program. Patient referred to: [facility] Cardiac [place] [id number] Recommend that the patient check with insurance company to verify coverage of the cost of cardiac rehabilitation program visits. CAL INSTRUMENTS SUPERVISOR * Eloisa Oro M.S.N., MJarrettHJanae, R.N., [facility] - 09/24/2023 8:48 AM OPTICAL INSTRUMENTS SUPERVISOR Associated Order(s): IP CONSULT TO CARE MANAGEMENT; IP CONSULT TO CARE MANAGEMENT Discharge Planning Assessment SUBJECTIVE Assessment Information Referral Source: Nurse Referral Name: Liliana Galindo RSammi Referral Reason: Discharge Planning Primary Language: Citizen Of [place] [employer] Used: Yes Person(s) present during interview: Person(s) Present During Interview: patient History of Present Illness #1 Stenosis Aortic Valve Acquired #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 Glomerular Filtration Rate (GFR) 30 To 44 ([facility]) #3 Hyperlipidemia On Treatment #4 Benign Prostatic Hyperplasia Without Obstruction #5 Atrial Fibrillation Paroxysmal ([facility]) #6 Diabetes Mellitus Type 2 ([facility]) #7 Anemia In Chronic Kidney Disease #8 Hemiplegia Dominant Side Right ([facility]) #9 Hypertension Essential Primary #10 Stroke Cerebrovascular Accident Personal History #11 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 #12 Prosthesis Aortic Valve #13 Coronary Artery Disease Without Angina Pectoris #14 Anemia Posthemorrhagic Acute (Blood Loss Anemia) #15 Failure Renal Acute (Acute Kidney Injury) ([facility]) #16 Hyperkalemia #17 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 #18 Therapy Jail Antiplatelet #19 Thrombocytopenia Secondary #20 Device Cardiac Status Post Social History Marital Status: Lissy Finance/Insurance Primary insurance: [facility] MEDICARE ADVANTAGE [facility] Secondary insurance: N/A Does the patient have any financial concerns? no benefits: No Advance Directives Legal Decision Maker: Self Advance Directives Status: Not completed OBJECTIVE Baseline Functional Status Baseline Activities of Daily Living Mobility: Independent Dressing: Independent Feeding: Independent Bathing: Independent Grooming: Independent Toileting: Independent Behavior: Appropriate, Pleasant, Calm, Cooperative, Oriented Communication: Can write, Talks, Understands speaking, Understands Citizen Of [place], Reads Shopping: Independent Transportation: Independent to drive Medication Management: Independent Housekeeping: Independent Meal Prep: Independent Managing Finances: Independent Assistive Devices: Cellphone, Eyeglasses, Grab bars - wall, Tub/shower chair/bench, Hand held shower Baseline Services/Resources Primary care clinic and provider: ELSEWHERE, PCP Anticipated Needs Functional Status: Meal preparation, Transportation use (drive car, use taxi/bus), Shopping, Housekeeping, Dressing Assistive Devices: Emergency call system Anticipated Modifications to the Patient's Home: None Transportation Needs: Support from family Does the patient need discharge transport arranged?: Yes Has discharge transport been arranged?: No Transport Provided By: Daughter Fanny or Lissy Phone Number for Ride/Caregiver: [phone] Anticipated Discharge Destination: Long-Term Facility ASSESSMENT / PLAN Assessment: The project management it specialist met with Jong Harris to discuss his current hospitalization and home going needs. The patient was unaccompanied. The patient was a reliable historian. The role of project management it specialist was reviewed. The patient reviewed his prior level of care and support system. The patient receives support from his , daughter, and son. Mr. Harris lives in a 1st floor apartment with his Lissy. The patients will need knee surgery in 4 days and they have requested the patient go to a halfway facility for PT/OT rehab if possible, referrals will be sent from approved insurance list. The patient pre surgery was driving and is able to complete all of his ADL's with no assistance. If unable to go to a SNF his daughter Fanny or son will offer assistance until the patient has recovered. The patient described his living environment as a apartment without elevator access with level entry. Housekeeping, grocery shopping, meal prep, and other household responsibilities have previously been completed by patient. project management it specialist discussed the patient's potential needs at dismissal basedon their home setting, previous needs and responsibilities, homebound status, and relevant assessments with the patient. The patient will be safe and supported to return to a SNF referrals will be sent as soon as approved list from insurance is obtained. when medically ready. Support will be provided by Son, daughter and . . The patient demonstrated understanding when discussing his home going plans and anticipated needs. At this time, the care team anticipates the patient will potentially require the following new service(s) to be set up: halfway facility. After reviewing the patient's chart and meeting with the patient, the project management it specialist deemed the LACE+/readmission questions were not necessary. The patient reports understanding that he will dismiss from the hospital when medically stable. Pending hospital course and medical readiness, no barriers to dismissal have been identified at this time. Plan: The patient agrees with the following plan. Patient's anticipated discharge disposition is: Long-Term Facility Planning needs to be initiated. Transportation upon dismissal will be provided by family--Son or daughter . project management it specialist recommended reaching out to family, friends, and neighbors for assistance. project management it specialist provided information regarding the dismissal process. project management it specialist placed or requested the following hospital-based consult orders and/or referrals: None. project management it specialist will continue to assess for homegoing needs with the interdisciplinary team. project management it specialist encouraged the patient to reach out with any questions/concerns. Care Management will continue to follow. Signed by: Damon Kraus, Alexis, R.NJarrett, GRISEL 09/24/2023 CAL INSTRUMENTS SUPERVISOR * Neelam Villalobos O.T., O.TRomeo - 09/23/2023 10:14 AM CST Occupational Therapy Acute Hospital Inpatient Evaluation/Treatment SUBJECTIVE Patient's Name: Jong Harris Referring/Attending Provider: Sarah Miller M.D. 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 Glomerular Filtration Rate (GFR) 30 To 44 ([facility]) Hyperlipidemia On Treatment Benign Prostatic Hyperplasia Without Obstruction Atrial Fibrillation Paroxysmal (HCC) Diabetes Mellitus Type 2 (HCC) Anemia In Chronic Kidney Disease Hemiplegia Dominant Side Right (HCC) Hypertension Essential Primary Stroke Cerebrovascular Accident Personal History 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 Prosthesis Aortic Valve Coronary Artery Disease Without Angina Pectoris Anemia Posthemorrhagic Acute (Blood Loss Anemia) Failure Renal Acute (Acute Kidney Injury) (HCC) Hyperkalemia 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 Therapy Jail Antiplatelet Thrombocytopenia Secondary Past Surgical History: Procedure Laterality Date CABG X 1 - VEIN N/A 09/19/2023 Procedure: CORONARY ARTERY BYPASS GRAFT X1, VEIN.; Surgeon: Sarah Miller M.D., M.P.H.; Location:[facility] OR CATH ANGIOGRAM N/A 08/21/2023 Procedure: CORONARY ANGIOGRAPHY; Surgeon: Ezequiel Jack M.D.; Location: [facility] CCL ECHOCARDIOGRAM TRANSESOPHAGEAL N/A 09/19/2023 Procedure: ECHOCARDIOGRAM TRANSESOPHAGEAL; Surgeon: Sarah Miller M.D., M.P.H.; Location: [facility] ISOLATION [...] Miller M.D., M.P.H.; Location: [facility] OR History of Present Illness:73 y.o. male admitted on 09/19/2023 for coronary artery bypass grafting x1, mechanical aortic valve replacement, MAZE, and left atrial appendage ligation Occupational Profile: Prior Function/Occupational Profile Dominant Hand: Right Lives With: Spouse Receives Help From: Family (son lives in the area) ADL Assistance: Independent IADL/Homemaking Assistance: Independent IADL/Homemaking Assistance Comments: does most of it per her preference. 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 Prior Mobility/Functional Transfers Level of [place]: Independent Home Living Type of Home: Apartment Home Access: Stairs to enter with rails Entrance Stairs: Rails: Left Entrance Stairs: Number of Steps: 6 Bathroom Shower/Tub: Tub/shower unit Tub/shower unit location: Main floor Bathroom Toilet: Standard Home Living Comments: would have to side shuffle with a walker Home Equipment Home Adaptive Equipment: American Indian Policy Specialist Other DME Equipment : (flat bed) Bathroom Equipment: Grab bars in shower, Tub transfer bench Family/Caregiver Present: Yes (son) Patient/Caregiver Goals: None stated Patient Comments: Patient presented on toilet, having just completed mobility in hallway and to bathroom with explosive specialist. Patient with no complaints of pain, and agreeable to OT/PT session. Fall Risk (65 and older) Fall in the last 12 months: Yes (fall yesterday) Did you have an injury with the fall?: No Precautions Other Precautions: sternal, hx of right residual weakness (LE>UE) and foot drop from prior stroke (approximately 4 years ago) OBJECTIVE Jong's NOHARM modalities were not used during their therapy session. Activity Tolerance Endurance: Tolerates 10-20 minutes of activity Balance Static Sitting-Balance: Good (Maintains balance without support) Dynamic Sitting-Balance: Good (Maintains balance without support) Static Standing-Balance: Fair (Maintains balance with handheld/contact guard assistance) Dynamic Standing-Balance: Fair (Maintains balance with handheld/contact guard assistance) General ROM / Strength Screening ROM - Upper Extremity Screen: Impaired right & left ROM - Upper Extremity Screen Comments: limited due to sternal precautions Strength - Upper Extremity Screen: Impaired right & left Strength - Upper Extremity Screen Comments: limited due to sternal precautions Cognition Cognitive assessment method: Therapist observations Arousal/Alertness: Appropriate responses to stimuli Attention: Addressed, no concerns noted Initiation: No difficulty with initiation Following Commands: Follows all commands/directions without difficulty Bed Mobility - Sit to Supine # of Assistants: 1 Level of Assistance: Supervision/Set-up Device: None Cuing: Verbal, Tactile Comments: patient educated on log roll technique, able to complete technique without physical assist Sit to Stand Transfers # of Assistants: 1 Transfer Surface: Toilet/Commode Transfer Equipment: Front wheeled walker, Gait belt, Grab bars(s) Level of Assistance: Contact guard assistance Assessment/Delivery: Assessed, Instructed, Educated, Facilitated Comments: patient lightly used grab bars to stand from toilet, contact guard assistance for mobility and sit<>stand, instruction on sternal precautions for hand placement Stand to Sit Transfers # of Assistants: 1 Transfer Surface: Bed Transfer Equipment: Front wheeled walker, Gait belt Level of Assistance: Contact guard assistance Assessment/Delivery: Assessed, Instructed, Educated, Facilitated Comments: cues for hand placement, instruction on sternal precautions for hand placement Bed, Chair, Wheelchair Transfers # of Assistants: 1 Transfer Surface: Bed Transfer Approach: To, Ambulating Transfer Equipment: Front wheeled walker, Other (comment) (gait belt) Level of Assistance: Contact guard assistance Assessment/Delivery: Assessed, Instructed, Educated, Facilitated Comments: contact guard assistance for safety Toilet Transfers # of Assistants: 1 Transfer Surface: Toilet Transfer Approach: From, Ambulating Transfer Equipment: Front wheeled walker, Grab bars, Other (comment) (gait belt) Level of Assistance: Contact guard assistance Assessment/Delivery: Assessed, Instructed, Educated, Facilitated Toilet Transfers Comments: patient lightly used grab bars to stand from toilet, contact guard assistance for mobility and sit<>stand, instruction on sternal precautions for hand placement Grooming Grooming Location: Standing at sink Grooming Delivery: Assessed, Instructed, Educated, Facilitated Grooming Level of Assistance: Supervision/Set-up (c ontact guard assistance) Grooming Comments: supervision to contact guard assistance for safety for standing only. Patient completed oral hygiene and hand hygiene Bathing Bathing Comments: Educated patient on utilizing his tub bench when bathing in order to conserve energy and increase patient's safety. Toileting Toileting Location: Toilet Toileting Delivery: Assessed, Instructed, Educated, Facilitated Toileting Level of Assistance: (c ontact guard assistance) Toileting Comments: contact guard assistance for transfer only. Patient completed other aspects including hygiene without assist Adaptive Interventions Adaptive Intervention/Education: Patient was educated on sternal precautions and how to apply thoseprecautions to activities of daily living and functional transfers., Patient was educated on activity modification and how to apply those techniques to activities of daily living. ADL Comments ADL Comments: Patient was educated on role of OT in the acute care setting and facilitated discussion regarding prior level of function and home setup. Focus on addressing safe progression of functional mobility to promote participation in mobility related activities of daily living. Education provided today: as noted Handouts provided today: Recovery From Heart Surgery [id number] Team Communication: Patient's nurse was contacted and patient's status was discussed, Discussed patient's care with PT Co-treatment with: Physical Therapy (Co-treatment session with PT, The patient benefited from having two skilled therapists present to progress mobility safely. OT addressed functional mobility as itrelates to completing activities of daily living.) Outcome Measures [facility] Inpatient Short Form: Putting on and taking off regular lower body clothing?: A Little Putting on and taking off regular upper body clothing?: A Little Taking care of personal grooming such as brushing teeth?: A Little (standing) Bathing (including washing, rinsing, drying)?: A Little Toileting, which includes using toilet, bedpan, or urinal?: A Little Eating meals?: None Daily Activities Raw Score (max 24): 19 Daily Activities Standardized Score: 40.22 Interpretation: Clinicians answer the -[facility] Inpatient Short Form based on observed patient activity and/or clinical judgement (ie. patient can be scored without physically performing each activity) Based on scoring guidelines using the raw score value: Those going to home had an average score at or above 18 Those going to facility had an average score at or below 17 Patient was left in bed at end of session with call light in reach, all needs met and questions answered. Assessment Discharge Therapy Needs - OT: Ongoing skilled occupational therapy (pending progress) Skilled therapy can include occupational therapy provided by home health, outpatient clinic, or a post-acute facility. The location of these services is determined by the patient's care team in partnership with patient/family. Level of Care Needed - OT: Assistance with toilet/shower transfers, Assistance with dressing, Assistance with meal preparation, Assistance with shopping, Assistance with housekeeping, Assistance withtransportation, Assistance with director of student financial aid, Assistance with showering/bathing Recommended Adaptive Equipment - OT: Other (Comment) (ongoing assessment) Barriers to Discharge Home: Limited caregiver availability, Current functional status, Limited caregiver support, Safety concerns Clinical Impression: Currently, patient presents with impairments including new sternal precautions, and decreased activity tolerance resulting in the following functional deficits: decreased ability for self care tasks and functional mobility/transfers. At baseline, patient was independent with ADL's, completed most IADL's. Patient completed mobility without a gait aid. Patient's will be undergoing surgery this upcoming week. Patient and son report family can support for check in's and IADL's. Today's session, patient completed toileting and short distance mobility with front wheeled walker with largely contact guard assistance. Patient educated on sternal precautions and application to I/ADL's and mobility/transfers. Patient continues below functional baseline and would benefit from continued skilled OT services toaddress functional deficits, maximize functional independence, and safety. Rehab potential: Mr. Harris has good potential to achieve established occupational therapy goals within the time frame outlined below. Tiered OT Evaluation Codes: Comorbid Conditions: Other (Comment) (see EMR) Personal Factors: Age, Needs assistive device, Living situation Occupational Profile and History review: Expanded Performance Deficits: 3 - 5 performance deficits Evaluation Complexity: Moderate Functional Goals: OT Goal #1: Patient and/or caregiver will demonstrate understanding of sternal precautions, activity modifications, and adaptive equipment to optimize safe discharge OT Goal #1 Status: Progressing OT Goal #2: Patient will complete toileting (transfer, clothing management, hygiene) with modified independence to maximize independence and return to prior level of function OT Goal #2 Status: Progressing OT Goal #3: Patient will complete full body dressing with adaptive equipment as needed with modified independence to maximize independence and return to prior level of function OT Goal #3 Status: Progressing Progress: Progressing toward goals Plan Occupational Therapy Attestation Statement: Patient agrees with the plan of care and goals. OT Frequency: OT Amount: 1 visit per day OT Frequency: 5 times per week OT Inpatient Duration : Until goals are met or hospital discharge Requires Inpatient OT Follow-Up: Yes OT - Next Inpatient Appointment: 09/24/23 Plan: Continue with current plan OT Plan Comments: Next session: full body dressing with item retrieval, progress mobility for toileting, review sternal precautions/home safety Treatment interventions may include: Treatment Interventions: Therapeutic exercise, Therapeutic functional activity, Self-care/home management, Cognitive skills training Billing: Time Spent with Patient Evaluations OT Eval - Mod Complexity: 10 min Therapeutic Interventions Home Management Training (min): 18 min Time Tracking Total Timed Units (min): 18 min Total Treatment Time (min): 28 min Neelam Villalobos O.T., O.TRomeo CAL INSTRUMENTS SUPERVISOR * Ximena Green PJarrettTJarrett, D.P.T. - 09/23/2023 10:14 AM CST Physical Therapy Inpatient Evaluation/Treatment SUBJECTIVE Patient's Name: Jogn Harris Referring/Attending Provider: Sarah Miller M.D. 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 Glomerular Filtration Rate (GFR) 30 To 44 (HCC) Hyperlipidemia On Treatment Benign Prostatic Hyperplasia Without Obstruction Atrial Fibrillation Paroxysmal (HCC) Diabetes Mellitus Type 2 (HCC) Anemia In Chronic Kidney Disease Hemiplegia Dominant Side Right (HCC) Hypertension Essential Primary Stroke Cerebrovascular Accident Personal History 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 Prosthesis Aortic Valve Coronary Artery Disease Without Angina Pectoris Anemia Posthemorrhagic Acute (Blood Loss Anemia) Failure Renal Acute (Acute Kidney Injury) (HCC) Hyperkalemia 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 male admitted on 09/19/2023 for coronary artery bypass grafting x 1, mechanical aortic valve replacement, MAZE, and left atrial appendage ligation Prior Function/Occupational Profile Dominant Hand: Right Lives With: Spouse Receives Help From: Family (son lives in the area) ADL Assistance: Independent IADL/Homemaking Assistance: Independent IADL/Homemaking Assistance Comments: does most of it per her preference. 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 Prior Mobility/Functional Transfers Level of [place]: Independent Home Equipment Home Adaptive Equipment: American Indian Policy Specialist Other DME Equipment : (flat bed) Bathroom Equipment: Grab bars in shower Home Living Type of Home: Apartment Home Access: Stairs to enter with rails Entrance Stairs: Rails: Left Entrance Stairs: Number of Steps: 6 Bathroom Shower/Tub: Tub/shower unit Tub/shower unit location: Main floor Bathroom Toilet: Standard Home Living Comments: would have to side shuffle with a walker Family/Caregiver Present: Yes (son) Patient/Caregiver Goals: None stated Patient Comments: Patient doing well and agreeable to therapy. Session short as patient had just walked to the bathroom and was fatigued. 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 Vitals monitored throughout session; within normal ranges. Cognition Arousal/Alertness: Appropriate responses to stimuli Vision/Sensation Basic Assessment Light Touch: No deficits General ROM / Strength Screening ROM - Upper Extremity Screen: Impaired right & left ROM - Upper Extremity Screen Comments: limited due to sternal precautions ROM - Lower Extremity Screen: Addressed, no concerns noted Strength - Upper Extremity Screen: Impaired right & left Strength - Upper Extremity Screen Comments: limited due to sternal precautions Strength - Lower Extremity Screen: Addressed, no concerns noted Bed Mobility - Sit to Supine # of Assistants: 1 Level of Assistance: Supervision/Set-up Device: None Cuing: Verbal, Tactile, Visual Comments: Educated patient on and facilitated reverse log roll technique Sit to Stand Transfers # of Assistants: 1 Transfer Surface: Toilet/Commode Transfer Equipment: Front wheeled walker, Gait belt, Grab bars(s) Level of Assistance: Contact guard assistance Assessment/Delivery: Assessed, Instructed, Facilitated Comments: cues to keep elbows tucked in Stand to Sit Transfers # of Assistants: 1 Transfer Surface: Bed Transfer Equipment: Front wheeled walker, Gait belt Level of Assistance: Contact guard assistance Assessment/Delivery: Assessed, Instructed, Facilitated Comments: cues for hand placement, instruction on sternal precautions for hand placement Balance Static Sitting-Balance: Good (Maintains balance without support) Dynamic Sitting-Balance: Good (Maintains balance without support) Static Standing-Balance: Fair (Maintains balance with handheld/contact guard assistance) Dynamic Standing-Balance: Fair (Maintains balance with handheld/contact guard assistance) Gait Assessment/Training Distance (m): 4 m Surface: Even Device: Gait belt, Front-wheeled walker # of Assistants: 1 Level of Assistance: Contact guard assistance Stability: good stability Assessment of Gait: Patient able to ambulate with upright posture. Light assist with the walker [facility]. Discussed patient's fall with nursing yesterday. Patient reports he got very fatigued and just couldn't walk further Cueing Provided: Verbal, Tactile, Visual Training/Intervention: Discussed importance of frequent mobility in the hospital Response: tolerated well Activity Tolerance Endurance: Tolerates 10-20 minutes of activity The following coordination of care occurred today: Co-treatment with: Occupational Therapy (Co-treatment session with PT, The patient benefited from having two skilled therapists present to progress mobility safely. OT addressed functional mobility as it relates to completing activities of daily living.) Patient's nurse was contacted and patient's status was discussed, Discussed patient's care with OT Patient was left in bed at end of session with call light in reach, all needs met and questions answered. Outcome Measures AM-PAC Inpatient Short Form: AM-PAC Basic Mobility (V.2) How much help from another person do you currently need???If the patient hasn't done an activity recently, how much help from another person do you think he/she would needif he/she tried? 1. Turning from your back to your side while in a flat bed without using bedrails?: A Little 2. Moving from lying on your back to sitting on the side of a flat bed without using bedrails?: A Little 3. Moving to and from a bed to a chair (including a wheelchair)?: A Little 4. Standing up from a chair using your arms (e.g., wheelchair, or bedside chair)?: A Little 5. To walk in hospital room?: A Little 6. Climbing 3-5 steps with a railing?: A Little -[facility] Basic Mobility (V.2) Raw Score: 18 -[facility] Basic Mobility (V.2) Standardized Score: 41.05 Interpretation: Clinicians answer the -[facility] Inpatient Short Form based on observed patient activity and/or clinical judgement (ie. patient can be scored without physically performing each activity) Based on scoring guidelines using the raw score value: Those going to home had an average score at or above 18 Those going to facility had an average score at or below 17 Assessment Discharge Therapy Needs - PT: Ongoing skilled physical therapy (pending progress in therapy) Skilled therapy can include physical therapy provided by home health, outpatient clinic, or a post-acute facility. The location of these services is determined by the patient's care team in partnership with patient/family. Level of Care Needed - PT: Assistance with transfers (Comment), Assistance with walking and moving around the home, Assistance with bed mobility Equipment Recommended - PT: Front-wheeled walker Barriers to Discharge Home: Limited caregiver availability, Current functional status, Limited caregiver support, Safety concerns Clinical Impression of today's session: Currently, patient presents with impairments including range of motion, strength, and pain resulting in the following functional deficits: functional tranfers, bed mobility, and gait . Patient tolerated today's session well. Therapist facilitated bed mobility, transfers, and gait. Patient demonstrated limited gait distances, however this was because he had just walked with the nurses. PT currently recommending assist x 1 with mobility. Patient does not appear to have this level of assist at discharge. Physical therapy treatment is medically necessary to restore and maximize function, maximizesafety and facilitate discharge to home, and to teach and educate the patient and/or caregivers. Rehab potential: Mr. Harris has potential to achieve established physical therapy goals within the time frame outlined below. Progress: Progressing toward goals Tiered PT Evaluation Codes: Comorbid Conditions: Cardiopulmonary disease, Diabetes, Cerebrovascular accident Personal Factors: Age, Needs assistive device, Living situation Examination elements: 3 Clinical Presentation: Evolving Clinical Decision Making: Moderate complexity clinical decision making Functional Goals: PT Inpatient Goals PT Goal #1: Patient will demonstrate bed mobility with modified independence to demonstrate improved functional mobility and independence. PT Goal #1 Status: Progressing PT Goal #2: Patient will complete sit to stand transfers with modified independence to perform safemobility for discharge home. PT Goal #2 Status: Progressing PT Goal #3: Patient will ambulate with least restricted assistive device modified independently for30 meters to demonstrate improved functional mobility for safe, in home ambulation PT Goal #3 Status: Progressing PT Goal #4: Patient will negotiate 6 stairs with contact guard assist to demonstrate improved functional mobility for safe entry into home. PT Goal #4 Status: Ongoing Plan Patient agrees with the plan of care and goals. Treatment Plan: Plan: Plan of care initiated PT Amount: 1 visit per day PT Frequency: 5 times per week PT Inpatient Duration : Until goals are met or hospital discharge Requires Inpatient Follow-Up: Yes PT - Next Inpatient Appointment: 09/24/23 PT Plan Comments: Progress transfers, assess patient's family support, initiate stairs Treatment interventions may include: Treatment/Interventions: Therapeutic exercise, Therapeutic functional activity, Neuromuscular re-education, Gait training Billing: Time Spent with Patient Evaluations PT Eval - Mod Complexity: 10 min Therapeutic Interventions Therapeutic Activity (min): 16 min Time Tracking Total Timed Units (min): 16 min Total Treatment Time (min): 26 min Ximena Green P.T., D.P.T. CAL INSTRUMENTS SUPERVISOR * Vipul Garcia P.A.-C. - 09/21/2023 12:34 PM CSTAssociated Order(s): Diabetes consult (hospital) SUBJECTIVE Diabetes consult (hospital) Referring Provider: Enmanuel Edward P.A.-C. CHART WAS REVIEWED. RECOMMENDATIONS PROVIDED. DCS WILL NOT FOLLOW CHIEF COMPLAINT Patient was not seen today. The patient is admitted on 09/19/2023 for Stenosis Aortic Valve Acquired HISTORY OF PRESENT ILLNESS DIABETES HISTORY History of diabetes mellitus, type 2. PREADMISSION THERAPY Metformin XR 500 mg bid. DIABETES COMPLICATIONS CO-MORBIDITIES Severe aortic stenosis, hypertension, CKD stage 3, hyperlipidemia, BPH, iron- deficiency anemia, CVA. HOSPITAL COURSE: Past 24 hour blood glucose readings: Recent Labs 09/21/23 1127 09/21/23 0850 09/21/23 0631 09/21/23 0511 09/21/23 0021 09/20/233 09/20/23 1631 09/20/23 1627 GLUCOSEPOC 190 H 145 H 164 H -- -- 196 H 182 H -- GLUCOSE -- -- -- 166 H 170 H -- -- 193 H Yesterday, received: Transition off an insulin infusion. He has remained on a moderate correction scale and utilize 4 units over the last 24 hours. Steroids: Dexamethasone 4 milligrams September 19. Current Diet Adult Diet Clear Liquid starting at 09/19 2339 REVIEW OF SYSTEMS Pertinent items are noted in HPI PREADMISSION MEDICATION: Diabetes medication(s) were reconciled on 09/21/2023 OBJECTIVE VITALS Temperature: 37.2 ??C Heart Rate: 84 Resp Rate: 19 Blood Pressure: 112/60 BP Location: Right arm;Upper Arterial Line BP: 122/45 SpO2: 97 % Flow Rate (L/min): 3 L/min BMI (Calculated): 30.2 kg/m?? Height: 173 cm Weight: 90.3 kg Body mass index is 30.17 kg/m??. PHYSICAL EXAMINATION Patient not seen EMR reviewed. DIAGNOSTICS I have reviewed relevant diagnostics and labs. Lab Results Component Value Date HGBA1C 6.2 (H) 08/22/2023 Estimated Creatinine Clearance: 31 mL/min (A) (by C-G formula based on SCr of 2.39 mg/dL (H)). Lab Results Component Value Date CREATININE 2.39 (H) 09/21/2023 ASSESSMENT / PLAN #1 Diabetes mellitus, type 2, preadmission euglycemia, A1c 6.2% 08/22/23 #2 CABG x 1 (SVG-PDA), mechanical AVR (23 mm On-X), DAHIANA ligation, LA Maze, 09/19/2023 DCS has reviewed EMR. Patient with history of type 2 diabetes, will controlled on metformin alone. He is s/p CABG and Mechanical AVR on 09/19. He required in insulin drip perioperatively. Insulin dripwas discontinued 09/20 at 0200. He has been on a correction scale with glucoses with in goal. Discussed with primary service and given recommendations listed below. RECOMMENDATIONS: - Blood glucose monitoring: four times daily - Glucose goal: 140-180 mg/dL - Basal: No basal insulin. - Mealtime: None. No mealtime insulin. - Correction scale: NovoLog moderate correction scale three times a day - DCS will not follow. Please reconsult DCS if patient blood glucose is not with in hospital goal. - Consults: None RECOMMENDATION FOR DISMISSAL PLAN: Pending renal function and insulin requirements. If eGFR is < than 30 would hold/dc metformin. If eGFR is >30 continue metformin. If unable to dc on metformin he may need additional agent such as a sulfonylurea. Blood glucose frequency: daily at alternating times Goal: 100-140 mg/dL Discussed with primary service. DCS is not following. Please reconsult DCS if needed. Please call primary service with questions regarding blood sugars. CAL INSTRUMENTS SUPERVISOR documented in this encounter Nursing Notes * Valorie Osman R.N. - 09/26/2023 2:15 PM CST Patient discharging home to self care. residential placement canceled per patients request. Education complete. All medications and future appointments reviewed with patient. All questions answered.Vital signs stable. IVs removed. Patient transported by [facility] home. Electronically signed by: Valorie Osman R.N. 09/26/23 3:50 PM OPTICAL INSTRUMENTS SUPERVISOR CAL INSTRUMENTS SUPERVISOR * Ar Mills R.N. - 09/26/2023 5:17 AM CST Problem: PAIN - ADULT Goal: PT VERBALIZES/DEMONSTRATES ADEQUATE COMFORT LEVEL OR BASELINE Outcome: Progressing Problem: SAFETY ADULT Goal: Maintain a safe environment Outcome: Progressing Shift Goals: Clinical Goals for the Shift: adequate sleep, remain hemodynamically stable Identify possible barriers to meeting goals/advancing plan of care: n/a End of Shift Summary: Patient remained safe in bed and when ambulating around independently. Patient verbalized none to minimal amounts of pain. Vitally stable. No further concerns at this time. Electronically signed by: Ar Mills R.N. 09/26/23 5:19 AM OPTICAL INSTRUMENTS SUPERVISOR CAL INSTRUMENTS SUPERVISOR * Kelsey Downing R.N. - 09/25/2023 5:46 PM CST Shift Goals: Clinical Goals for the Shift: Dismissal planning Identify possible barriers to meeting goals/advancing plan of care: None End of Shift Summary: Dismissal education progressing well. Plan is to dismiss to SNF on Sunday. Denies questions at this time. CAL INSTRUMENTS SUPERVISOR * Ar Mills R.N. - 09/25/2023 5:37 AM CST Problem: PAIN - ADULT Goal: PT VERBALIZES/DEMONSTRATES ADEQUATE COMFORT LEVEL OR BASELINE 09/25/2023 0537 by Ar Mills R.N. Outcome: Progressing Problem: SAFETY ADULT Goal: Maintain a safe environment Outcome: Progressing Shift Goals: Clinical Goals for the Shift: adequate sleep, remain hemodynamically stable Identify possible barriers to meeting goals/advancing plan of care: n/a End of Shift Summary: Patient remained safe in bed and when ambulating around room. Patient verbalized no pain. No further pharmacological interventions used. Vital signs stable. No further concerns at this time. Electronically signed by: Ar Mills R.N. 09/25/23 5:39 AM OPTICAL INSTRUMENTS SUPERVISOR CAL INSTRUMENTS SUPERVISOR * Amita Mercado R.N. - 09/24/2023 6:42 PM CST Shift Goals: Clinical Goals for the Shift: Dismissal education, Increase ambulation Identify possible barriers to meeting goals/advancing plan of care: None End of Shift Summary: Patient watched dismissal education videos and RN reinforced education with patient. Patient ambulated three times in the hallway and multiple times in the room today. Continue to reinforce education and encourage ambulation. Problem: PAIN - ADULT Goal: PT VERBALIZES/DEMONSTRATES ADEQUATE COMFORT LEVEL OR BASELINE Outcome: Progressing Problem: SAFETY ADULT Goal: Maintain a safe environment Outcome: Progressing CAL INSTRUMENTS SUPERVISOR * Radha Lara R.N. - 09/23/2023 5:20 PM CST Shift Goals: Clinical Goals for the Shift: Education and ambulation Identify possible barriers to meeting goals/advancing plan of care: Tiredness End of Shift Summary: Patient ambulated to the bathroom multiple times throughout the day. He was able to ambulate in the day three times with encouragement. The patient required a rest nursing home through the walk. Education was started while the was present. .Electronically signed by: Radha Lara R.N. 09/23/23 5:23 PM OPTICAL INSTRUMENTS SUPERVISOR Problem: KNOWLEDGE DEFICIT Goal: Patient/family/caregiver demonstrates understanding of disease process, treatment plan, medications, and discharge instructions Outcome: Progressing Problem: SKIN/TISSUE INTEGRITY Goal: Skin/Tissue integrity maintained or improved Outcome: Progressing Problem: DISCHARGE PLANNING Goal: Patient discharge needs identified Outcome: Progressing CAL INSTRUMENTS SUPERVISOR * Julienne Harding R.N. - 09/23/2023 4:13 AM CST Shift Goals: Identify possible barriers to meeting goals/advancing plan of care: orthostatic hypotension, pain control End of Shift Summary: Pt had an assisted fall as we were walking to the bathroom. Please see previous notes for details. No injuries were noted. Patient did not hit head. Neuro intact. Call light appropriate. Slept about 7 hrs throughout shift. 100mL of 25% Albumin given (see MAR) for hemodynamic support. Pain control remains adequate. CAL INSTRUMENTS SUPERVISOR * Julienne Harding R.N. - 09/22/2023 11:50 PM CST Pt was being walked to the bathroom with gait belt and walker. Pt began to state that he felt like he was going down. Pt began to urinate on the floor and was slouching. I assisted patient to the ground by sliding him down my leg. Service was notified. We laid pt on the supine on ground with pillow behind head, took vitals, and blood sugar. Pt had delayed responses. No injury noted. Pt was ceili ng lifted back to bed. Neuro status intact at this time. CAL INSTRUMENTS SUPERVISOR * Elieser Fong - 09/22/2023 6:26 PM CST Patient is a 73 y.o. male Admitted on 09/19/2023 Principal Problem: Stenosis Aortic Valve Acquired Alert Information: Shift Summary: Patient was seen for Respiratory assess and treat, RT to continue to monitor through stay as ordered. Plan of Care: Patient seen for Respiratory assess and treat, ordered by providing team. Cough is strong non-productive at this time, Encourage deep breathing with incentive spirometer use and coughing, Continue toencourage ambulation as tolerated, No therapies required at this time, Please contact RT with any questions or concerns Oxygen Therapy: $Delivery Method: Room air FiO2 (%): 40 % Flow Rate (L/min): 1 L/min Recent ABG: No results for input(s): PO2 ART, PCO2 ART, PH ART, HCO3 ART, BASE EXC ART in the last 24hours. Smoking History: Social History Tobacco Use Smoking Status Former Types: Cigarettes Smokeless Tobacco Never Tobacco Comments Smoked recreationally over 40 years ago - a few cigarettes once in a while. Recent CPT: Elieser Fong 09/22/23 6:27 PM OPTICAL INSTRUMENTS SUPERVISOR Under the direction of Lazara Lopez, R.R.T., L.R.T. CAL INSTRUMENTS SUPERVISOR * Vipin Catalan, R.R.T., L.R.T. - 09/21/2023 2:24 AM CST Patient is a 73 y.o. male admitted on 09/19/2023 Alert Information: Plan of Care: Assess respiratory needs Principal Problem Stenosis Aortic Valve Acquired Oxygen Therapy $Delivery Method: Nasal cannula Arterial Line 09/19/23 Left Radial (Active) Placement Date/Time: 09/19/23 (c) 66 Procedural Pause Completed: Yes Catheter Time Out Checklist Completed: Yes Hand Hygiene Performed Prior to Insertion: Yes Site Prep: Chlorhexidine (Preferred) Sterile Barriers Used : Cap;Gloves;Gown;Large d... Social History Tobacco Use Smoking Status Former Types: Cigarettes Smokeless Tobacco Never Tobacco Comments Smoked recreationally over 40 years ago - a few cigarettes once in a while. Recent Labs 09/20/23 0411 PO2 ART 79 L PCO2 ART 43 PH ART 7.37 CAL INSTRUMENTS SUPERVISOR * Kev Duke R.R.Anali., L.R.T. - 09/20/2023 6:23 AM CST Patient is a 73 y.o. male admitted on 09/19/2023 Alert Information: Plan of Care: Continue to monitor and assess cardiopulmonary status while in ICU. Encourage deep breathing and coughing as needed for pulmonary hygiene. Patient extubated per service order to 4LPM nasal cannula. No complications during extubation, patient able to vocalize. Principal Problem Stenosis Aortic Valve Acquired Oxygen Therapy $Delivery Method: Nasal cannula Arterial Line 09/19/23 Left Radial (Active) Placement Date/Time: 09/19/23 (c) 7387 Procedural Pause Completed: Yes Catheter Time Out Checklist Completed: Yes Hand Hygiene Performed Prior to Insertion: Yes Site Prep: Chlorhexidine (Preferred) Sterile Barriers Used : Cap;Gloves;Gown;Large d... Social History Tobacco Use Smoking Status Former Types: Cigarettes Smokeless Tobacco Never Tobacco Comments Smoked recreationally over 40 years ago - a few cigarettes once in a while. Recent Labs 09/20/23 0411 PO2 ART 79 L PCO2 ART 43 PH ART 7.37 Skin integrity checked: intact. CAL INSTRUMENTS SUPERVISOR * Yuriy Wilson R.R.T., Carlos.R.T. - 09/19/2023 6:05 PM CST Alert Information: Plan of Care: Continue to monitor and assess pts cardiopulmonary status; encourage coughing and deep breathing; encourage walking and use of incentive spirometry; wean O2 as tolerated. Wean vent settings as tolerated, w/ goal of extubation when ready. Principal Problem Stenosis Aortic Valve Acquired ETT Standard ETT (Active) Placement Date/Time: 09/19/23 (c) 3864 Mask Ventilation: Oral/Nasal airway needed Technique: Directlaryngoscopy, intubation ETT Type: Standard ETT Tube Size: 8 mm Cuffed: Yes Blade Size: [place] 2 Location: Oral Airway secured at (Initial grover... Arterial Line 09/19/23 Left Radial (Active) Placement Date/Time: 09/19/23 (c) 6166 Procedural Pause Completed: Yes Catheter Time Out Checklist Completed: Yes Hand Hygiene Performed Prior to Insertion: Yes Site Prep: Chlorhexidine (Preferred) Sterile Barriers Used : Cap;Gloves;Gown;Large d... Ventilator Info: Ventilator Mode: ASV FiO2 (%): 50 % PEEP (cmH2O): 8 cm H20 Plateau (Pause) Airway Pressure: 18 cm H2O Compliance (mL/cm H2O): 43.8 mL/cm H2O Recent Labs 09/19/23 1719 PO2 ART 192 H PCO2 ART 36 PH ART 7.37 Skin integrity checked: good CAL INSTRUMENTS SUPERVISOR documented in this encounter OR Notes * Op Note - Sarah Miller M.D., M.P.H. - 09/19/2023 8:59 AM CST Procedure details: Aortic valve replacement using 23 mm OnX conformX CABG x1 with reverse saphenous vein from aorta to PDA Endoscopic vein harvest of left lower extremity Left atrial Maze ablation using RFA clamp Left atrial appendage amputation Cardiopulmonary bypass with cooling to 34?? C Antegrade Del Nido cardioplegia cardiac arrest Intraoperative echocardiogram Incisional wound VAC Pre-op Diagnosis Severe aortic valve stenosis, paroxysmal atrial fibrillation, coronary disease, CKD IIIb, overweight. Post-op Diagnosis Same as preop A clinical project assistant actively participated and was necessary for one or more of the following: opening, exposure and visualization during the case, maintaining hemostasis, wound closure resulting in itssafe and expeditious completion. Findings Patient has severe aortic valve stenosis with calcified tricuspid aortic valve. Aortic valve was resected and replaced using a 23 mm on X conform X mechanical valve. Patient also has severe coronary disease of the right coronary artery and a reverse saphenous vein was anastomosed from aorta to PDA with a flow of 142 and a pulsatility index of 2.4. We also performed left atrial Maze ablation usingthe encompass RFA clamp. The left atrial appendage was also amputated. Prior to leaving the operating room we explored the mediastinum again due to excessive oozing but no surgical bleeding was found. Postoperative echo showed good biventricular function no perivalvular leak and a gradient of 9 mm Hg with a cardiac index above three. Total cardiopulmonary bypass time was 159 minutes and cross-clamp time was 140 minutes. This case was substantially more difficult than usual because of significant effort and difficulty mobilizing and identifying anatomical structures due to altered surgical field secondary to tissue friability.This case was substantially more difficult than usual because of prolonged/ significant intra- operative hemorrhage. Complications None Operative Note Narrative Patient was brought to the operating room 606 and under general endotracheal anesthesia patient wasprepped and draped in usual sterile fashion. After appropriate surgical pause an incision was created over the medial aspect of the left knee and great saphenous vein was identified and harvested using endoscopic vein harvest technique for one length vein. The vein was of adequate quality and caliber. Simultaneously an incision was created over the sternum carried down to the level of the bone using electric cautery. Sternum was divided using electrical sternal saw. Pericardium was opened and pericardial stay sutures were placed. Full-dose heparin was administered and ascending aorta was cannulated using two pursestring of non pledgetted Prolene suture and a 20 [place] DLP arterial cannula. The right atrium was cannulated using a dual stage large venous cannula and a pursestring of non pledgetted Prolene suture. After assuring adequate ACT cardiopulmonary bypass was initiated at 2.4 liter s/minutes/M2 and was kept at this rate throughout the procedure. Patient temperature was drifted down to 34?? C and he was rewarmed at the end of the operation. A tack vent was placed in the ascending aorta using a non pledgetted Prolene suture. Of note ascending aorta was slightly short making allthe distances very close to each other. The PDA was identified and marked. I opened underneath the SVC and I passed the magnetic red rubber catheter underneath the SVC through the transverse sinus and around the heart and out through the oblique sinus period Then I applied the cross-clamp and 1 L of cold antegrade [place] cardioplegia was administered and satisfactory arrest was obtained. Then Iperformed the Maze procedure by placing the encompass device around the pulmonary veins and performing three parallel nunn each including three separate nunn. Then I amputated the left atrial appendage and using two strip of felt on either side oversewed the appendage. I also applied tseal for hem ostasis. The heart was then lifted cephalad and the PDA was identified and opened revealing a 1.5 mm of moderately diseased vessel. Using reverse saphenous vein an end-to-side anastomosis was createdusing 7-0 Prolene suture. The vein was tested under cardioplegia and at a pressure 100 mm Hg a [id number] mL/minute was obtained. We re-dosed the cardioplegia at this time through the root and the graft and then opened the aorta in a hockey-stick fashion. The aorta was inspected revealing a heavily calcified tricuspid aortic valve. Using a combination of scissor and 15 blade knife the aortic cusps were resected flush with the annulus. The annulus was then decalcified using rongeur. Area was irrigated and all the debris were collected. The annulus was measured for a 23 mm mechanical on X valve. Then using two pledgetted Ethibond sutures with the pledgets on the ventricular side annular stitches were placed and passed through the sewing ring of the mechanical valve without the use of spring. The valve was then lowered and seated appropriately. Three tourniquets were used to secure the valvein place. The sutures were tied securely. The aorta was closed primarily in two layers using 4-0 pledgetted Prolene suture starting from either corner and tying in the middle. Of note patient had a calcified STJ which required extra pledgetted sutures in that area. I then created the opening for the proximal anastomosis of the saphenous vein. Reverse saphenous vein was cut to size and anastomosedto the ascending aorta using 6-0 Prolene suture. Heart was de-aired a tack vent was placed on high and the cross-clamp was removed. Heart slowly regained normal sinus rhythm. Respiration was restarted and the patient was liberated from cardiopulmonary bypass without difficulty. Echocardiogram confirmed good biventricular function and no perivalvular leak with a gradient of 9 mm Hg while the cardiac index was above three. The flows were then measured in the grafts which are mentioned above. After all the air had been evacuated the tack vent and the venous line were removed. Protamine was administered and after all the volume had been transfused aortic cannula was removed. All cannulation sites were reinforced with pledgetted Prolene sutures. At this point I noticed bleeding from the left atrial appendage resection site which was coming from the area where the ablation meet the appendectomy. With intermittent lifting of the heart I was able to place 3-0 pledgetted Prolene suture in thisarea and stop the bleeding. The rest of the heart was dried up. Of note the patient was coagulopathic with low platelets and high INR. Appropriate transfusions were given and the patient dried up satisfactory. Mediastinum was then irrigated and dried with warm Ancef. After assuring adequate hemostasis vancomycin paste was added to the sternal edges and the sternum was closed using stainless steelwires. The fascia was closed using interrupted 0 Vicryl sutures. The deep dermis was closed using 2-0 running Vicryl suture. The skin was closed using 4-0 running subcuticular Monocryl stitch. Incisional wound VAC was applied to the sternal incision and regular dressing to the rest of the incisions. Just before the patient was transferred out of the operating room we encountered above normal chesttube output. We observed that for 30 minutes and he had about 350 cc out of the two which I thoughtwas excessive. Therefore we elected to reopen the chest. Patient was prepped and draped sterilely again and prior incision was opened the sternal wires were removed. We encountered small amount of clots in the pericardium. These were evacuated there was some bleeding from sternal wire sites but no bleeding from any surgical sites. Carefully we inspected every aspects and obtain hemostasis again. Mediastinum was irrigated aspirated dry initially with warm saline followed by Ancef. When satisfiedwith hemostasis again vancomycin paste was added to the sternal edges and the sternum was closed using stainless steel wires. The fascia was closed using interrupted 0 Vicryl sutures. The deep dermiswas closed using 2-0 running Vicryl suture. The skin was closed using 4-0 running subcuticular Monocryl stitch. Incisional wound VAC was applied to the sternal incision and regular dressing to the rest of the incisions. Patient tolerated procedure well and was transferred to the ICU in stable conditions. Patient tolerated procedure well and was transferred to the ICU in stable conditions. Sarah Miller M.D., M.P.H. CAL INSTRUMENTS SUPERVISOR * Brief Op Note - Jenny Stanford M.B., B.Ch., B.A.O. - 09/19/2023 8:59 AM CST BRIEF OP NOTE Procedure(s): REPLACEMENT AORTIC VALVE, POSSIBLE AORTIC ROOT ENLARGEMENT. (On-X Conform 23mm Valve) CORONARY ARTERY BYPASS GRAFT X1, VEIN. LIGATION LEFT ATRIAL APPENDAGE. ISOLATION PULMONARY VEIN. ECHOCARDIOGRAM TRANSESOPHAGEAL Surgeon(s) and Role: * Sarah Miller M.D., M.P.H. - Primary * Jenny Stanford M.B., B.Ch., B.A.O. - Project Crew Worker Anesthesia Type General Pre-operative Diagnosis Stenosis Aortic Valve Acquired Post-operative Diagnosis Stenosis Aortic Valve Acquired Surgical Procedure: CABG x 1 (Venous graft to PDA) Mechanical aortic valve replacement Maze procedure and left atrial appendage ligation Reopening of sternotomy for high chest tubes output (about 400 ml over 40 min), no evidence of active bleeding, 100 ml hematoma evacuated, minimal bone edges and wires sites oozing. Hemostasis achieved and closure completed Chest Tubes: Mediastinal x 2 Pacing wires: None Post-op echo findings: Normal gradient across aortic valve. No regional wall motion abnormalities Pump Time: 02:39 Cross Clamp Time: 02:20 Estimated Blood Loss 1400 mL Specimens ID Type Source Tests Collected by Time A : Left atrial appendage Tissue Heart, [facility] Sarah Miller M.D.,M.P.H. 09/19/2023 1134 B : Tissue Heart Valve, Aortic [facility] Sarah Miller M.D., M.P.H. 09/19/2023 1134 Implants Implant Name LRB Site No. Used Product Development Manager Mfr No. Serial No. Status Type CLP HRZN TI 6 CLP MD KIKA - [id number] N/A Chest 1 [employer] [id number] Implanted Hardware e.g. pins/screws/rods CLP HRZN TI 24 CLP SM RED - [id number] N/A Chest 1 [employer] [id number] Implanted Hardware e.g. pins/screws/rods CLP HRZN TI 24 CLP SM RED - [id number] N/A Chest 1 [employer] [id number] Implanted Hardware e.g. pins/screws/rods FELT SURG TFLN 1X6 - [id number] N/A Chest 1 [employer] [id number] Implanted Hardware e.g. pins/screws/rods CLP HRZN TI 24 CLP KIKA - [id number] N/A Chest 1 [employer] [id number] Implanted Hardware e.g. pins/screws/rods VLV AORT CNF [facility] 23 - [id number] - [id number] N/A Aortic Valve 1 [employer] (Prev. [employer]) [id number]-23 [id number] Implanted Cardiac Valve Prosthesis Patient Condition:ICU: Stable Misty Howe, B.Ch., B.A.O. CAL INSTRUMENTS SUPERVISOR documented in this encounter Miscellaneous Notes * Hospital Course - Ginette Greene P.A.-C., M.S. - 09/20/2023 1:59 AM OPTICAL INSTRUMENTS SUPERVISOR Jong Harris is a 73 y.o. male [...] stable. Patientdeclined SNF placement. Discharged home 09/26. SURGICAL PROCEDURE(S) 09/19/2023 Procedure details: Aortic valve replacement using 23 mm OnX conformX CABG x1 with reverse saphenous vein from aorta to PDA Endoscopic vein harvest of left lower extremity Left atrial Maze ablation using RFA clamp Left atrial appendage amputation Cardiopulmonary bypass with cooling to 34?? C Antegrade [place] cardioplegia cardiac arrest Intraoperative echocardiogram Incisional wound VAC Provider Role Sarah Miller M.D., M.P.H. Primary Jenny Stanford M.B., B.Ch., B.A.O. Project Crew Worker Dismissal Vitals: Admission Weight: 85.8 kg Blood pressure 136/62, pulse 68, temperature 36.8 ??C, temperature sourceOral, resp. rate 16, height 173 cm, weight 87.9 kg, SpO2 92%. PHYSICAL EXAM: General: Alert and oriented. No apparent distress. Heart: Regular rate and rhythm, no murmurs or rubs noted. Lungs: Clear to auscultation bilaterally. Abdomen: Soft, nontender. Extremities: Distal pulses intact. 1+ lower extremity edema noted bilaterally. Incision: Wound approximated, clean, dry, and intact. No erythema or other clinical signs of infection. Sternum stable Echocardiogram Hemodynamics Heart Rate: 70 BPM Blood Pressure: [...] to the increased Doppler velocities (8.3 g/dL). CAL INSTRUMENTS SUPERVISOR documented in this encounter Plan of Treatment Upcoming Encounters Date Type Department Care Team (Latest Contact Info) Description 12/21/2023 10:15 AM OPTICAL INSTRUMENTS SUPERVISOR Clinical Communication Virtual Review in [place], [place] [address] [place] [address] 12/24/2023 2:00 PM OPTICAL INSTRUMENTS SUPERVISOR Comprehensive Visit Department of Cardiovascular Medicine in [address] [phone] Gudelia Soto M.D. [address] [place] [phone] 01/01/2024 3:45 PM OPTICAL INSTRUMENTS SUPERVISOR Comprehensive Visit Division of Hematology in [address] [phone] Billy Segal APRN, C.N.P., D.N.P. [address] [place] [address] Pending Results Name Type Priority Associated Diagnoses Date /Time Prepare Red Blood Cells, 2 Units Blood Bank STAT 09/18/2023 9:04 AM OPTICAL INSTRUMENTS SUPERVISOR Prepare Platelets : 1 Units Blood Bank STAT 09/20/2023 2:30 AM OPTICAL INSTRUMENTS SUPERVISOR Prepare Red Blood Cells, 2 Units Blood Bank STAT 09/18/2023 9:04 AM OPTICAL INSTRUMENTS SUPERVISOR Prepare Fresh Frozen Plasma : 1 Units Blood Bank STAT 09/20/2023 2:30 AM OPTICAL INSTRUMENTS SUPERVISOR Prepare Platelets : 1 Units Blood Bank STAT 09/20/2023 2:30 AM OPTICAL INSTRUMENTS SUPERVISOR Prepare Pooled Cryoprecipitate : 2 Pools Blood Bank STAT 2022 4:30 AM OPTICAL INSTRUMENTS SUPERVISOR Prepare Red Blood Cells, 2 Units Blood Bank STAT 09/18/2023 9:04 AM OPTICAL INSTRUMENTS SUPERVISOR Prepare Platelets : 1 Units Blood Bank STAT 09/20/2023 6:30 AM OPTICAL INSTRUMENTS SUPERVISOR Scheduled Referrals Name Type Priority Associated Diagnoses Orde r Schedule External referral cardiac rehab program ([facility]) Outpatient Referral Routine Prosthesis Aortic Valve Bypass Coronary Artery Graft Status Post Ordered: 09/24/2023 documented as of this encounter Procedures Procedure Name Priority Date/Time Associated Diagnosis Comments GLUCOSE POCT, B Routine 09/26/2023 11:37 AM OPTICAL INSTRUMENTS SUPERVISOR GLUCOSE POCT, B Routine 09/26/2023 7:55 AM OPTICAL INSTRUMENTS SUPERVISOR PROTHROMBIN TIME (PT), P Routine 09/26/2023 6:58 AM OPTICAL INSTRUMENTS SUPERVISOR CBC WITHOUT DIFFERENTIAL, B Routine 09/26/2023 6:58 AM OPTICAL INSTRUMENTS SUPERVISOR BASIC METABOLIC PANEL, S/P Routine 09/26/2023 6:58 AM OPTICAL INSTRUMENTS SUPERVISOR GLUCOSE POCT, B Routine 09/25/2023 8:25 PM OPTICAL INSTRUMENTS SUPERVISOR GLUCOSE POCT, B Routine 09/25/2023 5:36 PM OPTICAL INSTRUMENTS SUPERVISOR GLUCOSE POCT, B Routine 09/25/2023 1:13 PM OPTICAL INSTRUMENTS SUPERVISOR PROTHROMBIN TIME (PT), P Routine 09/25/2023 9:26 AM OPTICAL INSTRUMENTS SUPERVISOR CBC WITHOUT DIFFERENTIAL, B Routine 09/25/2023 9:26 AM OPTICAL INSTRUMENTS SUPERVISOR BASIC METABOLIC PANEL, S/P Routine 09/25/2023 9:26 AM OPTICAL INSTRUMENTS SUPERVISOR GLUCOSE POCT, B Routine 09/25/2023 8:10 AM OPTICAL INSTRUMENTS SUPERVISOR DX CHEST AP OR PA AND LATERAL 2 VIEWS RAD - Routine (most inpatients and all outpatients) 09/25/2023 7:26 AM OPTICAL INSTRUMENTS SUPERVISOR ECG Routine 09/25/2023 4:55 AM OPTICAL INSTRUMENTS SUPERVISOR GLUCOSE POCT, B Routine 09/24/2023 8:33 PM OPTICAL INSTRUMENTS SUPERVISOR GLUCOSE POCT, B Routine 09/24/2023 4:44 PM OPTICAL INSTRUMENTS SUPERVISOR NOCTURNAL OXYGEN STUDY - RT Routine 09/24/2023 3:46 PM OPTICAL INSTRUMENTS SUPERVISOR (TTE) 2D ECHO DOPPLER COLOR Routine 09/24/2023 3:26 PM OPTICAL INSTRUMENTS SUPERVISOR GLUCOSE POCT, B Routine 09/24/2023 12:43 PM OPTICAL INSTRUMENTS SUPERVISOR RT TO ARRANGE FOR HOME DME Routine 09/24/2023 11:14 AM OPTICAL INSTRUMENTS SUPERVISOR GLUCOSE POCT, B Routine 09/24/2023 7:19 AM OPTICAL INSTRUMENTS SUPERVISOR PROTHROMBIN TIME (PT), P Routine 09/24/2023 6:49 AM OPTICAL INSTRUMENTS SUPERVISOR CBC WITHOUT DIFFERENTIAL, B Routine 09/24/2023 6:49 AM OPTICAL INSTRUMENTS SUPERVISOR BASIC METABOLIC PANEL, S/P Routine 09/24/2023 6:49 AM OPTICAL INSTRUMENTS SUPERVISOR GLUCOSE POCT, B Routine 09/23/2023 9:38 PM OPTICAL INSTRUMENTS SUPERVISOR GLUCOSE POCT, B Routine 09/23/2023 5:02 PM OPTICAL INSTRUMENTS SUPERVISOR PROTHROMBIN TIME (PT), P STAT 09/23/2023 3:44 PM OPTICAL INSTRUMENTS SUPERVISOR HEMOGLOBIN, B STAT 09/23/2023 3:44 PM OPTICAL INSTRUMENTS SUPERVISOR BASIC METABOLIC PANEL, S/P STAT 09/23/2023 3:44 PM OPTICAL INSTRUMENTS SUPERVISOR GLUCOSE POCT, B Routine 09/23/2023 12:19 PM OPTICAL INSTRUMENTS SUPERVISOR DX CHEST AP OR PA AND LATERAL 2 VIEWS RAD - Routine (most inpatients and all outpatients) 09/23/2023 8:44 AM OPTICAL INSTRUMENTS SUPERVISOR PROTHROMBIN TIME (PT), P Routine 09/23/2023 7:34 AM OPTICAL INSTRUMENTS SUPERVISOR CBC WITHOUT DIFFERENTIAL, B Routine 09/23/2023 7:34 AM OPTICAL INSTRUMENTS SUPERVISOR BASIC METABOLIC PANEL, S/P Routine 09/23/2023 7:34 AM OPTICAL INSTRUMENTS SUPERVISOR HEPATIC FUNCTION PANEL, S Routine 09/23/2023 7:31 AM OPTICAL INSTRUMENTS SUPERVISOR GLUCOSE POCT, B Routine 09/23/2023 7:24 AM OPTICAL INSTRUMENTS SUPERVISOR CBC WITHOUT DIFFERENTIAL, B STAT 09/22/2023 11:14 PM OPTICAL INSTRUMENTS SUPERVISOR BASIC METABOLIC PANEL, S/P STAT 09/22/2023 11:14 PM OPTICAL INSTRUMENTS SUPERVISOR GLUCOSE POCT, B Routine 09/22/2023 9:29 PM OPTICAL INSTRUMENTS SUPERVISOR RESPIRATORY ASSESS AND TREAT Routine 09/22/2023 2:00 PM OPTICAL INSTRUMENTS SUPERVISOR TRANSFUSE RED BLOOD CELLS Routine 09/22/2023 2:00 PM OPTICAL INSTRUMENTS SUPERVISOR GLUCOSE POCT, B Routine 09/22/2023 11:27 AM OPTICAL INSTRUMENTS SUPERVISOR GLUCOSE POCT, B Routine 09/22/2023 7:34 AM OPTICAL INSTRUMENTS SUPERVISOR PROTHROMBIN TIME (PT), P Routine 09/22/2023 7:04 AM OPTICAL INSTRUMENTS SUPERVISOR CBC WITHOUT DIFFERENTIAL, B Routine 09/22/2023 7:04 AM OPTICAL INSTRUMENTS SUPERVISOR BASIC METABOLIC PANEL, S/P Routine 09/22/2023 7:04 AM OPTICAL INSTRUMENTS SUPERVISOR TYPE AND SCREEN Routine 09/22/2023 7:01 AM OPTICAL INSTRUMENTS SUPERVISOR GLUCOSE POCT, B Routine 09/21/2023 10:52 PM OPTICAL INSTRUMENTS SUPERVISOR GLUCOSE POCT, B Routine 09/21/2023 7:07 PM OPTICAL INSTRUMENTS SUPERVISOR RESPIRATORY ASSESS AND TREAT Routine 09/21/2023 2:00 PM OPTICAL INSTRUMENTS SUPERVISOR GLUCOSE POCT, B Routine 09/21/2023 11:27 AM OPTICAL INSTRUMENTS SUPERVISOR GLUCOSE POCT, B Routine 09/21/2023 8:50 AM OPTICAL INSTRUMENTS SUPERVISOR PROTHROMBIN TIME (PT), P STAT 09/21/2023 7:47 AM OPTICAL INSTRUMENTS SUPERVISOR PATIENT STATUS Timed 09/21/2023 6:35 AM OPTICAL INSTRUMENTS SUPERVISOR ABG W/COOX Timed 09/21/2023 6:35 AM OPTICAL INSTRUMENTS SUPERVISOR GLUCOSE POCT, B Routine 09/21/2023 6:31 AM OPTICAL INSTRUMENTS SUPERVISOR CBC WITHOUT DIFFERENTIAL, B Timed 09/21/2023 5:11 AM OPTICAL INSTRUMENTS SUPERVISOR PHOSPHORUS (INORGANIC), S Timed 09/21/2023 5:11 AM OPTICAL INSTRUMENTS SUPERVISOR MAGNESIUM, S Timed 09/21/2023 5:11 AM OPTICAL INSTRUMENTS SUPERVISOR BASIC METABOLIC PANEL, S/P Timed 09/21/2023 5:11 AM OPTICAL INSTRUMENTS SUPERVISOR BASIC METABOLIC PANEL, S/P Timed 09/21/2023 12:21 AM OPTICAL INSTRUMENTS SUPERVISOR GLUCOSE POCT, B Routine 09/20/2023 8:33 PM OPTICAL INSTRUMENTS SUPERVISOR POTASSIUM, S/P Timed 09/20/2023 8:33 PM OPTICAL INSTRUMENTS SUPERVISOR GLUCOSE POCT, B Routine 09/20/2023 4:31 PM OPTICAL INSTRUMENTS SUPERVISOR BASIC METABOLIC PANEL, S/P STAT 09/20/2023 4:27 PM OPTICAL INSTRUMENTS SUPERVISOR RESPIRATORY ASSESS AND TREAT Routine 09/20/2023 2:00 PM OPTICAL INSTRUMENTS SUPERVISOR GLUCOSE POCT, B Routine 09/20/2023 11:51 AM OPTICAL INSTRUMENTS SUPERVISOR BASIC METABOLIC PANEL, S/P STAT 09/20/2023 11:51 AM OPTICAL INSTRUMENTS SUPERVISOR GLUCOSE POCT, B Routine 09/20/2023 6:30 AM OPTICAL INSTRUMENTS SUPERVISOR PREPARE PLATELETS STAT 09/20/2023 6:3 0 AM OPTICAL INSTRUMENTS SUPERVISOR PREPARE CRYOPRECIPITATE STAT 09/20/2023 4:30 AM OPTICAL INSTRUMENTS SUPERVISOR LACTATE, B Timed 09/20/2023 4:11 AM OPTICAL INSTRUMENTS SUPERVISOR PATIENT STATUS Timed 09/20/2023 4:11 AM OPTICAL INSTRUMENTS SUPERVISOR ABG W/O COOX Timed 09/20/2023 4:11 AM OPTICAL INSTRUMENTS SUPERVISOR ACTIVATED PARTIAL THROMBOPLASTIN TIME (APTT), P Timed 09/20/2023 4:09 AM OPTICAL INSTRUMENTS SUPERVISOR PROTHROMBIN TIME (PT), P Timed 09/20/2023 4:09 AM OPTICAL INSTRUMENTS SUPERVISOR CBC WITHOUT DIFFERENTIAL, B Timed 09/20/2023 4:09 AM OPTICAL INSTRUMENTS SUPERVISOR MAGNESIUM, S Timed 09/20/2023 4:09 AM OPTICAL INSTRUMENTS SUPERVISOR BASIC METABOLIC PANEL, S/P Timed 09/20/2023 4:09 AM OPTICAL INSTRUMENTS SUPERVISOR DX CHEST PORTABLE WITH AM ROUNDS 1 VIEW RAD - Routine (most inpatients and all outpatients) 09/20/2023 3:33 AM OPTICAL INSTRUMENTS SUPERVISOR TIMP2/IGFBP7 MANJEET RISK SCORE, U Routine 09/20/2023 3:24 AM OPTICAL INSTRUMENTS SUPERVISOR PREPARE PLATELETS STAT 09/20/2023 2:3 0 AM OPTICAL INSTRUMENTS SUPERVISOR PREPARE PLATELETS STAT 09/20/2023 2:3 0 AM OPTICAL INSTRUMENTS SUPERVISOR PREPARE FRESH FROZEN PLASMA STAT 09/20/2023 2:30 AM OPTICAL INSTRUMENTS SUPERVISOR GLUCOSE POCT, B Routine 09/20/2023 1:17 AM OPTICAL INSTRUMENTS SUPERVISOR GLUCOSE POCT, B Routine 09/19/2023 11:58 PM OPTICAL INSTRUMENTS SUPERVISOR GLUCOSE POCT, B Routine 09/19/2023 11:20 PM OPTICAL INSTRUMENTS SUPERVISOR LACTATE, B Timed 09/19/2023 10:58 PM OPTICAL INSTRUMENTS SUPERVISOR RESPIRATORY ASSESS AND TREAT Routine 09/19/2023 10:30 PM OPTICAL INSTRUMENTS SUPERVISOR GLUCOSE POCT, B Routine 09/19/2023 10:27 PM OPTICAL INSTRUMENTS SUPERVISOR GLUCOSE POCT, B Routine 09/19/2023 9:24 PM OPTICAL INSTRUMENTS SUPERVISOR ECG Routine 09/19/2023 8:14 PM OPTICAL INSTRUMENTS SUPERVISOR GLUCOSE POCT, B Routine 09/19/2023 7:58 PM OPTICAL INSTRUMENTS SUPERVISOR LACTATE, B Timed 09/19/2023 7:43 PM OPTICAL INSTRUMENTS SUPERVISOR PATIENT STATUS Timed 09/19/2023 7:43 PM OPTICAL INSTRUMENTS SUPERVISOR ABG W/COOX Timed 09/19/2023 7:43 PM OPTICAL INSTRUMENTS SUPERVISOR LACTATE, B/P Timed 09/19/2023 7:43 PM OPTICAL INSTRUMENTS SUPERVISOR GLUCOSE POCT, B Routine 09/19/2023 6:57 PM OPTICAL INSTRUMENTS SUPERVISOR GLUCOSE POCT, B Routine 09/19/2023 6:23 PM OPTICAL INSTRUMENTS SUPERVISOR DX CHEST PORTABLE 1 VIEW 09/19/2023 5:45 PM OPTICAL INSTRUMENTS SUPERVISOR LACTATE, B STAT 09/19/2023 5:19 PM OPTICAL INSTRUMENTS SUPERVISOR PATIENT STATUS STAT 09/19/2023 5:19 PM OPTICAL INSTRUMENTS SUPERVISOR ABG W/COOX STAT 09/19/2023 5:19 PM OPTICAL INSTRUMENTS SUPERVISOR CYSTATIN C WITH EGFR Timed 09/19/2023 5:19 PM OPTICAL INSTRUMENTS SUPERVISOR Acquired Aortic Valve Disorder ACTIVATED PARTIAL THROMBOPLASTIN TIME (APTT), P STAT 09/19/2023 5:19 PM OPTICAL INSTRUMENTS SUPERVISOR PROTHROMBIN TIME (PT), P STAT 09/19/2023 5:19 PM OPTICAL INSTRUMENTS SUPERVISOR FIBRINOGEN, P STAT 09/19/2023 5:19 PM OPTICAL INSTRUMENTS SUPERVISOR CBC WITHOUT DIFFERENTIAL, B STAT 09/19/2023 5:19 PM OPTICAL INSTRUMENTS SUPERVISOR BASIC METABOLIC PANEL, S/P STAT 09/19/2023 5:19 PM OPTICAL INSTRUMENTS SUPERVISOR AIRWAY CARE Routine 09/19/2023 5:16 PM OPTICAL INSTRUMENTS SUPERVISOR MECHANICAL VENTILATOR Routine 09/19/2023 5:16 PM OPTICAL INSTRUMENTS SUPERVISOR RESPIRATORY ASSESS AND TREAT Routine 09/19/2023 5:07 PM OPTICAL INSTRUMENTS SUPERVISOR TRANSFUSE PLATELETS Routine 09/19/2023 4 :58 PM OPTICAL INSTRUMENTS SUPERVISOR LACTATE, B STAT 09/19/2023 4:20 PM OPTICAL INSTRUMENTS SUPERVISOR SODIUM, B STAT 09/19/2023 4:20 PM OPTICAL INSTRUMENTS SUPERVISOR ABG W/COOX STAT 09/19/2023 4:20 PM OPTICAL INSTRUMENTS SUPERVISOR POTASSIUM, B STAT 09/19/2023 4:20 PM OPTICAL INSTRUMENTS SUPERVISOR GLUCOSE, WHOLE BLOOD STAT 09/19/2023 4:20 PM OPTICAL INSTRUMENTS SUPERVISOR ACTIVATED PARTIAL THROMBOPLASTIN TIME (APTT), P STAT 09/19/2023 4:20 PM OPTICAL INSTRUMENTS SUPERVISOR PROTHROMBIN TIME (PT), P STAT 09/19/2023 4:20 PM OPTICAL INSTRUMENTS SUPERVISOR FIBRINOGEN, P STAT 09/19/2023 4:20 PM OPTICAL INSTRUMENTS SUPERVISOR PLATELETS, B STAT 09/19/2023 4:20 PM OPTICAL INSTRUMENTS SUPERVISOR CALCIUM, IONIZED, S/B STAT 09/19/2023 4:20 PM OPTICAL INSTRUMENTS SUPERVISOR TRANSFUSE CRYOPRECIPITATE Routine 09/19/2023 3:53 PM OPTICAL INSTRUMENTS SUPERVISOR TRANSFUSE CRYOPRECIPITATE Routine 09/19/2023 3:51 PM OPTICAL INSTRUMENTS SUPERVISOR TRANSFUSE RED BLOOD CELLS Routine 09/19/2023 3:50 PM OPTICAL INSTRUMENTS SUPERVISOR LACTATE, B STAT 09/19/2023 3:37 PM OPTICAL INSTRUMENTS SUPERVISOR SODIUM, B STAT 09/19/2023 3:37 PM OPTICAL INSTRUMENTS SUPERVISOR ABG W/COOX STAT 09/19/2023 3:37 PM OPTICAL INSTRUMENTS SUPERVISOR THROMBOELASTOGRAPH, KAOLIN + HEPARINASE, B STAT 09/19/2023 3:37 PM OPTICAL INSTRUMENTS SUPERVISOR POTASSIUM, B STAT 09/19/2023 3:37 PM OPTICAL INSTRUMENTS SUPERVISOR GLUCOSE, WHOLE BLOOD STAT 09/19/2023 3:37 PM OPTICAL INSTRUMENTS SUPERVISOR THROMBOELASTOGRAPH, KAOLIN, B STAT 09/19/2023 3:37 PM OPTICAL INSTRUMENTS SUPERVISOR ACTIVATED PARTIAL THROMBOPLASTIN TIME (APTT), P STAT 09/19/2023 3:37 PM OPTICAL INSTRUMENTS SUPERVISOR PROTHROMBIN TIME (PT), P STAT 09/19/2023 3:37 PM OPTICAL INSTRUMENTS SUPERVISOR FIBRINOGEN, P STAT 09/19/2023 3:37 PM OPTICAL INSTRUMENTS SUPERVISOR PLATELETS, B STAT 09/19/2023 3:37 PM OPTICAL INSTRUMENTS SUPERVISOR CALCIUM, IONIZED, S/B STAT 09/19/2023 3:37 PM OPTICAL INSTRUMENTS SUPERVISOR TRANSFUSE RED BLOOD CELLS Routine 09/19/2023 3:23 PM OPTICAL INSTRUMENTS SUPERVISOR SODIUM, B STAT 09/19/2023 2:46 PM OPTICAL INSTRUMENTS SUPERVISOR ABG W/COOX STAT 09/19/2023 2:46 PM OPTICAL INSTRUMENTS SUPERVISOR POTASSIUM, B STAT 09/19/2023 2:46 PM OPTICAL INSTRUMENTS SUPERVISOR GLUCOSE, WHOLE BLOOD STAT 09/19/2023 2:46 PM OPTICAL INSTRUMENTS SUPERVISOR ACTIVATED PARTIAL THROMBOPLASTIN TIME (APTT), P STAT 09/19/2023 2:46 PM OPTICAL INSTRUMENTS SUPERVISOR PROTHROMBIN TIME (PT), P STAT 09/19/2023 2:46 PM OPTICAL INSTRUMENTS SUPERVISOR FIBRINOGEN, P STAT 09/19/2023 2:46 PM OPTICAL INSTRUMENTS SUPERVISOR PLATELETS, B STAT 09/19/2023 2:46 PM OPTICAL INSTRUMENTS SUPERVISOR CALCIUM, IONIZED, S/B STAT 09/19/2023 2:46 PM OPTICAL INSTRUMENTS SUPERVISOR DX CHEST RETAINED SURGICAL ITEM 1 VIEW RAD - Emergent (Fastest; for the most critically ill patients) 09/19/2023 2:30 PM OPTICAL INSTRUMENTS SUPERVISOR TRANSFUSE PLATELETS Routine 09/19/2023 2 :15 PM OPTICAL INSTRUMENTS SUPERVISOR TRANSFUSE RED BLOOD CELLS Routine 09/19/2023 2:00 PM OPTICAL INSTRUMENTS SUPERVISOR SODIUM, B STAT 09/19/2023 1:40 PM OPTICAL INSTRUMENTS SUPERVISOR ABG W/COOX STAT 09/19/2023 1:40 PM OPTICAL INSTRUMENTS SUPERVISOR POTASSIUM, B STAT 09/19/2023 1:40 PM OPTICAL INSTRUMENTS SUPERVISOR GLUCOSE, WHOLE BLOOD STAT 09/19/2023 1:40 PM OPTICAL INSTRUMENTS SUPERVISOR ACTIVATED PARTIAL THROMBOPLASTIN TIME (APTT), P STAT 09/19/2023 1:40 PM OPTICAL INSTRUMENTS SUPERVISOR PROTHROMBIN TIME (PT), P STAT 09/19/2023 1:40 PM OPTICAL INSTRUMENTS SUPERVISOR FIBRINOGEN, P STAT 09/19/2023 1:40 PM OPTICAL INSTRUMENTS SUPERVISOR PLATELETS, B STAT 09/19/2023 1:40 PM OPTICAL INSTRUMENTS SUPERVISOR CALCIUM, IONIZED, S/B STAT 09/19/2023 1:40 PM OPTICAL INSTRUMENTS SUPERVISOR AUTOLOGOUS RED BLOOD CELLS-CELL SALVAGE Routine 09/19/2023 1:28 PM OPTICAL INSTRUMENTS SUPERVISOR TRANSFUSE FRESH FROZEN PLASMA Routine 09/19/2023 1:24 PM OPTICAL INSTRUMENTS SUPERVISOR TRANSFUSE PLATELETS Routine 09/19/2023 1 :09 PM OPTICAL INSTRUMENTS SUPERVISOR LACTATE, B STAT 09/19/2023 12:45 PM OPTICAL INSTRUMENTS SUPERVISOR SODIUM, B STAT 09/19/2023 12:45 PM OPTICAL INSTRUMENTS SUPERVISOR ABG W/COOX STAT 09/19/2023 12:45 PM OPTICAL INSTRUMENTS SUPERVISOR POTASSIUM, B STAT 09/19/2023 12:45 PM OPTICAL INSTRUMENTS SUPERVISOR GLUCOSE, WHOLE BLOOD STAT 09/19/2023 12:45 PM OPTICAL INSTRUMENTS SUPERVISOR CALCIUM, IONIZED, S/B STAT 09/19/2023 12:45 PM OPTICAL INSTRUMENTS SUPERVISOR ACTIVATED PARTIAL THROMBOPLASTIN TIME (APTT), P STAT 09/19/2023 12:44 PM OPTICAL INSTRUMENTS SUPERVISOR PROTHROMBIN TIME (PT), P STAT 09/19/2023 12:44 PM OPTICAL INSTRUMENTS SUPERVISOR FIBRINOGEN, P STAT 09/19/2023 12:44 PM OPTICAL INSTRUMENTS SUPERVISOR PLATELETS, B STAT 09/19/2023 12:44 PM OPTICAL INSTRUMENTS SUPERVISOR ACT, POCT, B Routine 09/19/2023 12:42 PM OPTICAL INSTRUMENTS SUPERVISOR HEMOGLOBIN (HGB), POCT, B Routine 09/19/2023 12:17 PM OPTICAL INSTRUMENTS SUPERVISOR ACT, POCT, B Routine 09/19/2023 12:01 PM OPTICAL INSTRUMENTS SUPERVISOR GLUCOSE POCT, B Routine 09/19/2023 12:00 PM OPTICAL INSTRUMENTS SUPERVISOR SURGICAL PATHOLOGY, FROZEN LAB Routine 09/19/2023 11:34 AM OPTICAL INSTRUMENTS SUPERVISOR Stenosis Aortic Valve Acquired AUTOLOGOUS RED BLOOD CELLS-CELL SALVAGE Routine 09/19/2023 11:33 AM OPTICAL INSTRUMENTS SUPERVISOR ACT, POCT, B Routine 09/19/2023 11:28 AM OPTICAL INSTRUMENTS SUPERVISOR ACT, POCT, B Routine 09/19/2023 10:55 AM OPTICAL INSTRUMENTS SUPERVISOR ACT, POCT, B Routine 09/19/2023 10:24 AM OPTICAL INSTRUMENTS SUPERVISOR GLUCOSE POCT, B Routine 09/19/2023 10:23 AM OPTICAL INSTRUMENTS SUPERVISOR TRANSFUSE RED BLOOD CELLS Routine 09/19/2023 10:13 AM OPTICAL INSTRUMENTS SUPERVISOR (EDMUNDO) - INTRAOPERATIVE WITH COLOR AND LIMITED DOPPLER (PROBE NOT PLACED) Routine 09/19/2023 9:56 AM OPTICAL INSTRUMENTS SUPERVISOR SODIUM, B STAT 09/19/2023 9:51 AM OPTICAL INSTRUMENTS SUPERVISOR ABG W/COOX STAT 09/19/2023 9:51 AM OPTICAL INSTRUMENTS SUPERVISOR ACT, POCT, B Routine 09/19/2023 9:51 AM OPTICAL INSTRUMENTS SUPERVISOR POTASSIUM, B STAT 09/19/2023 9:51 AM OPTICAL INSTRUMENTS SUPERVISOR GLUCOSE, WHOLE BLOOD STAT 09/19/2023 9:51 AM OPTICAL INSTRUMENTS SUPERVISOR CALCIUM, IONIZED, S/B STAT 09/19/2023 9:51 AM OPTICAL INSTRUMENTS SUPERVISOR ACT, POCT, B Routine 09/19/2023 9:26 AM OPTICAL INSTRUMENTS SUPERVISOR HEMOGLOBIN (HGB), POCT, B Routine 09/19/2023 9:24 AM OPTICAL INSTRUMENTS SUPERVISOR LACTATE, B STAT 09/19/2023 8:25 AM OPTICAL INSTRUMENTS SUPERVISOR SODIUM, B STAT 09/19/2023 8:25 AM OPTICAL INSTRUMENTS SUPERVISOR ABG W/COOX STAT 09/19/2023 8:25 AM OPTICAL INSTRUMENTS SUPERVISOR POTASSIUM, B STAT 09/19/2023 8:25 AM OPTICAL INSTRUMENTS SUPERVISOR GLUCOSE, WHOLE BLOOD STAT 09/19/2023 8:25 AM OPTICAL INSTRUMENTS SUPERVISOR CALCIUM, IONIZED, S/B STAT 09/19/2023 8:25 AM OPTICAL INSTRUMENTS SUPERVISOR ACT, POCT, B Routine 09/19/2023 8:24 AM OPTICAL INSTRUMENTS SUPERVISOR ECHOCARDIOGRAM TRANSESOPHAGEAL 09/19/2023 7:03 AM OPTICAL INSTRUMENTS SUPERVISOR Stenosis Aortic Valve Acquired ISOLATION PULMONARY VEIN 09/19/2023 7:03 AM OPTICAL INSTRUMENTS SUPERVISOR Stenosis Aortic Valve Acquired LIGATION LEFT ATRIAL APPENDAGE 09/19/2023 7:03 AM OPTICAL INSTRUMENTS SUPERVISOR 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 09/19/2023 7:03 AM OPTICAL INSTRUMENTS SUPERVISOR Stenosis Aortic Valve Acquired REPLACEMENT AORTIC VALVE 09/19/2023 7:03 AM OPTICAL INSTRUMENTS SUPERVISOR Stenosis Aortic Valve Acquired PREPARE RED BLOOD CELLS STAT 09/18/2023 9:04 AM OPTICAL INSTRUMENTS SUPERVISOR PREPARE RED BLOOD CELLS STAT 09/18/2023 9:04 AM OPTICAL INSTRUMENTS SUPERVISOR PREPARE RED BLOOD CELLS STAT 09/18/2023 9:04 AM OPTICAL INSTRUMENTS SUPERVISOR documented in this encounter Results * (ABNORMAL) Glucose, POCT (09/26/2023 11:37 AM OPTICAL INSTRUMENTS SUPERVISOR) Glucose, POCT, B 190(H) 70 - 140 mg/dL 09/26/2023 11:54 AM OPTICAL INSTRUMENTS SUPERVISOR PCLX Site Capillary 09/26/2023 11:54 AM OPTICAL INSTRUMENTS SUPERVISOR PCLX Last Intake 3-4 hours 09/26/2023 11:54 AM OPTICAL INSTRUMENTS SUPERVISOR PCLX Blood 09/26/2023 11:3 7 AM OPTICAL INSTRUMENTS SUPERVISOR 09/26/2023 11:54 AM OPTICAL INSTRUMENTS SUPERVISOR Unknown Provider LAB POCT ORDERABLES- MANUAL Performing Organization Address City/[facility]/ZIP Co de Phone Number POC [facility] [address] [place] [address], [facility] PCLX [facility] POC [address] [place] [address] * (ABNORMAL) Glucose, POCT (09/26/2023 7:55 AM OPTICAL INSTRUMENTS SUPERVISOR) Pathologist [facility] Glucose, POCT, B 148(H) 70 - 140 mg/dL 09/26/2023 8:07 AM OPTICAL INSTRUMENTS SUPERVISOR PCLX Site Capillary 09/26/2023 8:07 AM OPTICAL INSTRUMENTS SUPERVISOR PCLX Last Intake 3-4 hours 09/26/2023 8:07 AM OPTICAL INSTRUMENTS SUPERVISOR PCLX Blood 09/26/2023 7:55 AM OPTICAL INSTRUMENTS SUPERVISOR 09/26/2023 8:07 AM OPTICAL INSTRUMENTS SUPERVISOR Unknown Provider LAB POCT ORDERABLES- MANUAL [facility] [address] [place] [address], [facility] PCLX [facility] POC [address] [place] [address] * (ABNORMAL) Basic Metabolic Panel (09/26/2023 6:58 AM OPTICAL INSTRUMENTS SUPERVISOR) Potassium, S 4.4 3.6 - 5.2 mmol/L 09/26/2023 8:19 AM OPTICAL INSTRUMENTS SUPERVISOR DTL Sodium, S 141 135 - 145 mmol/L 09/26/2023 8:19 AM OPTICAL INSTRUMENTS SUPERVISOR DTL Chloride, S 101 98 - 107 mmol/L 09/26/2023 8:19 AM OPTICAL INSTRUMENTS SUPERVISOR DTL Bicarbonate, S 31(H) 22 - 29 mmol/L 09/26/2023 8:19 AM OPTICAL INSTRUMENTS SUPERVISOR DTL Anion Gap 9 7 - 15 09/26/2023 8:19 AM OPTICAL INSTRUMENTS SUPERVISOR DTL BUN (Blood Urea Nitrogen), S 32(H) 8 - 24 mg/dL 09/26/2023 8:19 AM OPTICAL INSTRUMENTS SUPERVISOR DTL Creatinine 2.41(H) 0.74 - 1.35 mg/dL 09/26/2023 8:19 AM OPTICAL INSTRUMENTS SUPERVISOR DTL Estimated GFR (eGFR) 28(L) >=60 mL/min/BSA 09/26/2023 8:19 AM OPTICAL INSTRUMENTS SUPERVISOR DTL Comment: Estimated GFR calculated using the 2020 CKD_EPI creatinine equation. Calcium, Total, S 8.5(L) 8.8 - 10.2 mg/dL 09/26/2023 8:19 AM OPTICAL INSTRUMENTS SUPERVISOR DTL Glucose, S 151(H) 70 - 140 mg/dL 09/26/2023 8:19 AM OPTICAL INSTRUMENTS SUPERVISOR DTL Blood (Blood, Venous) 09/26/2023 6:58 AM OPTICAL INSTRUMENTS SUPERVISOR 09/26/2023 7:58 AM OPTICAL INSTRUMENTS SUPERVISOR Laila Basurto P.A.-C. LAB BLOOD ADD -ON [address] [address], [facility] [address] [address] * (ABNORMAL) Prothrombin Time (PT) (09/26/2023 6:58 AM OPTICAL INSTRUMENTS SUPERVISOR) Prothrombin Time, P 22.0(H) 9.4 - 12.5 sec 09/26/2023 8:25 AM OPTICAL INSTRUMENTS SUPERVISOR DTL INR 2.0 0.9 - 1.1 09/26/2023 8:25 AM OPTICAL INSTRUMENTS SUPERVISOR DTL Comment: ----ADDITIONAL INFORMATION---- Standard intensity warfarin therapeutic range: 2.0 to 3.0 ?? High intensity warfarin therapeutic range: 2.5 to 3.5 Blood (Blood, Venous) 09/26/2023 6:58 AM OPTICAL INSTRUMENTS SUPERVISOR 09/26/2023 7:42 AM OPTICAL INSTRUMENTS SUPERVISOR Marge Radha Hair APRNNJarrettP., Emilia.N.P. LAB B LOOD ADD-ON Performing Organization Address City/[facility] Co de Phone Number [facility] [address] [facility] [address] [place] [address] * (ABNORMAL) CBC without Differential (09/26/2023 6:58 AM OPTICAL INSTRUMENTS SUPERVISOR) [facility] Hemoglobin 8.3(L) 13.2 - 16.6 g/dL 09/26/2023 8:04 AM OPTICAL INSTRUMENTS SUPERVISOR DTL Hematocrit 25.5(L) 38.3 - 48.6 % 09/26/2023 8:04 AM OPTICAL INSTRUMENTS SUPERVISOR DTL Erythrocytes 2.70(L) 4.35 - 5.65 x10(12)/L 09/26/2023 8:04 AM OPTICAL INSTRUMENTS SUPERVISOR DTL MCV 94.4 78.2 - 97.9 fL 09/26/2023 8:04 AM OPTICAL INSTRUMENTS SUPERVISOR DTL RBC Distrib Width 13.5 11.8 - 14.5 % 09/26/2023 8:04 AM OPTICAL INSTRUMENTS SUPERVISOR DTL Platelet Count 214 135 - 317 x10(9)/L 09/26/2023 8:04 AM OPTICAL INSTRUMENTS SUPERVISOR DTL Leukocytes 6.7 3.4 - 9.6 x10(9)/L 09/26/2023 8:04 AM OPTICAL INSTRUMENTS SUPERVISOR DTL Blood (Blood, Venous) 09/26/2023 6:58 AM OPTICAL INSTRUMENTS SUPERVISOR 09/26/2023 7:43 AM OPTICAL INSTRUMENTS SUPERVISOR Jenny Jay, B.Ch., B.A.O. LAB BLOOD ADD-ON Performing Organization Address City/[facility]/ZIP Co de Phone Number [facility] [address] [place] [address], [facility] [address] [place] [address] * (ABNORMAL) Glucose, POCT (09/25/2023 8:25 PM OPTICAL INSTRUMENTS SUPERVISOR) Glucose, POCT, B 193(H) 70 - 140 mg/dL 09/25/2023 8:31 PM OPTICAL INSTRUMENTS SUPERVISOR PCLX Site Capillary 09/25/2023 8:31 PM OPTICAL INSTRUMENTS SUPERVISOR PCLX Blood 09/25/2023 8:25 PM OPTICAL INSTRUMENTS SUPERVISOR 09/25/2023 8:31 PM OPTICAL INSTRUMENTS SUPERVISOR Unknown Provider LAB POCT ORDERABLES- MANUAL Performing Organization Address City/[facility]/ZIP Co de Phone Number POC [facility] [address] [place] [address], [facility] PCLX [facility] POC [address] [place] [address] * (ABNORMAL) Glucose, POCT (09/25/2023 5:36 PM OPTICAL INSTRUMENTS SUPERVISOR) Glucose, POCT, B 197(H) 70 - 140 mg/dL 09/25/2023 5:38 PM OPTICAL INSTRUMENTS SUPERVISOR PCLX Site Capillary 09/25/2023 5:38 PM OPTICAL INSTRUMENTS SUPERVISOR PCLX Last Intake 3-4 hours 09/25/2023 5:38 PM OPTICAL INSTRUMENTS SUPERVISOR PCLX Blood 09/25/2023 5:36 PM OPTICAL INSTRUMENTS SUPERVISOR 09/25/2023 5:39 PM OPTICAL INSTRUMENTS SUPERVISOR Unknown Provider LAB POCT ORDERABLES- MANUAL Performing Organization Address [facility] Co de Phone Number [facility] [address] [place] [address], [place] PCLX [facility] POC [address] [place] [address] * (ABNORMAL) Glucose, POCT (09/25/2023 1:13 PM OPTICAL INSTRUMENTS SUPERVISOR) Glucose, POCT, B 196(H) 70 - 140 mg/dL 09/25/2023 1:15 PM OPTICAL INSTRUMENTS SUPERVISOR PCLX Last Intake 3-4 hours 09/25/2023 1:15 PM OPTICAL INSTRUMENTS SUPERVISOR PCLX Blood 09/25/2023 1:13 PM OPTICAL INSTRUMENTS SUPERVISOR 09/25/2023 1:16 PM OPTICAL INSTRUMENTS SUPERVISOR Unknown Provider LAB POCT ORDERABLES- MANUAL Performing Organization Address City/[facility]/ZIP Co de Phone Number [facility] [address] [place] [address], [facility] PCLX [facility] POC [address] [place] [address] * (ABNORMAL) Basic Metabolic Panel (09/25/2023 9:26 AM OPTICAL INSTRUMENTS SUPERVISOR) [facility] Potassium, S 4.3 3.6 - 5.2 mmol/L 09/25/2023 10:36 AM OPTICAL INSTRUMENTS SUPERVISOR DTL Sodium, S 138 135 - 145 mmol/L 09/25/2023 10:36 AM OPTICAL INSTRUMENTS SUPERVISOR DTL Chloride, S 98 98 - 107 mmol/L 09/25/2023 10:36 AM OPTICAL INSTRUMENTS SUPERVISOR DTL Bicarbonate, S 30(H) 22 - 29 mmol/L 09/25/2023 10:36 AM OPTICAL INSTRUMENTS SUPERVISOR DTL Anion Gap 10 7 - 15 09/25/2023 10:36 AM OPTICAL INSTRUMENTS SUPERVISOR DTL BUN (Blood Urea Nitrogen), S 34(H) 8 - 24 mg/dL 09/25/2023 10:36 AM OPTICAL INSTRUMENTS SUPERVISOR DTL Creatinine 2.64(H) 0.74 - 1.35 mg/dL 09/25/2023 10:36 AM OPTICAL INSTRUMENTS SUPERVISOR DTL Estimated GFR (eGFR) 25(L) >=60 mL/min/BSA 09/25/2023 10:36 AM OPTICAL INSTRUMENTS SUPERVISOR DTL Comment: Estimated GFR calculated using the 2020 CKD_EPI creatinine equation. Calcium, Total, S 8.6(L) 8.8 - 10.2 mg/dL 09/25/2023 10:36 AM OPTICAL INSTRUMENTS SUPERVISOR DTL Glucose, S 177(H) 70 - 140 mg/dL 09/25/2023 10:36 AM OPTICAL INSTRUMENTS SUPERVISOR DTL Blood (Blood, Venous) 09/25/2023 9:26 AM OPTICAL INSTRUMENTS SUPERVISOR 09/25/2023 10:18 AM OPTICAL INSTRUMENTS SUPERVISOR Laila Basurto P.A.-C. LAB BLOOD ADD -ON [facility] [address] [place] [address], [facility] DTL [facility] [address] [place] [address] * (ABNORMAL) Prothrombin Time (PT) (09/25/2023 9:26 AM OPTICAL INSTRUMENTS SUPERVISOR) [facility] Prothrombin Time, P 22.4(H) 9.4 - 12.5 sec 09/25/2023 11:10 AM OPTICAL INSTRUMENTS SUPERVISOR DTL INR 2.0 0.9 - 1.1 09/25/2023 11:10 AM OPTICAL INSTRUMENTS SUPERVISOR DTL Comment: ----ADDITIONAL INFORMATION---- Standard intensity warfarin therapeutic range: 2.0 to 3.0 ?? High intensity warfarin therapeutic range: 2.5 to 3.5 Blood (Blood, Venous) 09/25/2023 9:26 AM OPTICAL INSTRUMENTS SUPERVISOR 09/25/2023 10:05 AM OPTICAL INSTRUMENTS SUPERVISOR Anette Hair APRN, C.N.P., D.N.P. LAB B LOOD ADD-ON [facility] [address] [place] [address], [facility] [address] [address] * (ABNORMAL) CBC without Differential (09/25/2023 9:26 AM OPTICAL INSTRUMENTS SUPERVISOR) Pathologist [facility] Hemoglobin 9.0(L) 13.2 - 16.6 g/dL 09/25/2023 10:55 AM OPTICAL INSTRUMENTS SUPERVISOR DTL Hematocrit 27.2(L) 38.3 - 48.6 % 09/25/2023 10:55 AM OPTICAL INSTRUMENTS SUPERVISOR DTL Erythrocytes 2.93(L) 4.35 - 5.65 x10(12)/L 09/25/2023 10:55 AM OPTICAL INSTRUMENTS SUPERVISOR DTL MCV 92.8 78.2 - 97.9 fL 09/25/2023 10:55 AM OPTICAL INSTRUMENTS SUPERVISOR DTL RBC Distrib Width 13.6 11.8 - 14.5 % 09/25/2023 10:55 AM OPTICAL INSTRUMENTS SUPERVISOR DTL Platelet Count 229 135 - 317 x10(9)/L 09/25/2023 10:55 AM OPTICAL INSTRUMENTS SUPERVISOR DTL Leukocytes 7.5 3.4 - 9.6 x10(9)/L 09/25/2023 10:55 AM OPTICAL INSTRUMENTS SUPERVISOR DTL Blood (Blood, Venous) 09/25/2023 9:26 AM OPTICAL INSTRUMENTS SUPERVISOR 09/25/2023 10:09 AM OPTICAL INSTRUMENTS SUPERVISOR Jenny Jay, BKolby., B.A.O. LAB BLOOD ADD-ON [facility] [address] [place], [place] [id number] [place] [address] DTL [facility] [address] [place] [address] * (ABNORMAL) Glucose, POCT (09/25/2023 8:10 AM OPTICAL INSTRUMENTS SUPERVISOR) Glucose, POCT, B 161(H) 70 - 140 mg/dL 09/25/2023 8:19 AM OPTICAL INSTRUMENTS SUPERVISOR PCLX Site Capillary 09/25/2023 8:19 AM OPTICAL INSTRUMENTS SUPERVISOR PCLX Last Intake 3-4 hours 09/25/2023 8:19 AM OPTICAL INSTRUMENTS SUPERVISOR PCLX Blood 09/25/2023 8:10 AM OPTICAL INSTRUMENTS SUPERVISOR 09/25/2023 8:19 AM OPTICAL INSTRUMENTS SUPERVISOR Unknown Provider LAB POCT ORDERABLES- MANUAL POC [facility] [address] [place], [place] [id number] [place] [address] PCLX [facility] POC [address] [place] [address] * DX Chest AP or PA and Lateral 2 Views (09/25/2023 7:26 AM OPTICAL INSTRUMENTS SUPERVISOR) Anatomical Region Laterality Modality Chest, Thoracic RST LOS, Tho racic ARZ LOS, Thoracic FLA LOS N/A Digital Radiography 09/25/2023 8:59 AM OPTICAL INSTRUMENTS SUPERVISOR Impressions 09/25/2023 9:01 AM OPTICAL INSTRUMENTS SUPERVISOR Sternotomy with aortic valve replacement. Mild enlargement of cardiac silhouette. Loop recorder. Trace pleural effusions. Azygos fissure. Aortic calcification. Degenerative arthritis thoracic spine. No pneumothorax. No significant change since 09/23/2023. Narrative 09/25/2023 9:01 AM OPTICAL INSTRUMENTS SUPERVISOR EXAM: ??DX CHEST AP OR PA AND [...] * ECG 12 Lead (09/25/2023 4:55 AM OPTICAL INSTRUMENTS SUPERVISOR) Ventricular Rate ECG/Min 69 BPM MUSE ME Interval 140 ms MUSE QRSD Interval 86 ms MUSE QT Interval 420 ms MUSE QTC Interval 450 ms MUSE P Radford 30 degrees MUSE R Radford 29 degrees MUSE T Wave Radford 74 degrees MUSE 09/25/2023 4:55 AM OPTICAL INSTRUMENTS SUPERVISOR 09/25/2023 5:12 AM OPTICAL INSTRUMENTS SUPERVISOR Impressions MUSE - 09/25/2023 5:13 AM OPTICAL INSTRUMENTS SUPERVISOR Normal sinus rhythm Low voltage QRS in [...] P.A.-C. ECG ORDERABLE S MUSE NA * (ABNORMAL) Glucose, POCT (09/24/2023 8:33 PM OPTICAL INSTRUMENTS SUPERVISOR) Pathologist [facility] Glucose, POCT, B 183(H) 70 - 140 mg/dL 09/24/2023 8:40 PM OPTICAL INSTRUMENTS SUPERVISOR PCLX Site Capillary 09/24/2023 8:40 PM OPTICAL INSTRUMENTS SUPERVISOR PCLX Blood 09/24/2023 8:33 PM OPTICAL INSTRUMENTS SUPERVISOR 09/24/2023 8:40 PM OPTICAL INSTRUMENTS SUPERVISOR Unknown Provider LAB POCT ORDERABLES- MANUAL Performing Organization Address City/[facility] Co de Phone Number POC [facility] [address] [place] [address], [facility] PCLX [facility] POC [address] [place] [address] * (ABNORMAL) Glucose, POCT (09/24/2023 4:44 PM OPTICAL INSTRUMENTS SUPERVISOR) Glucose, POCT, B 221(H) 70 - 140 mg/dL 09/24/2023 4:59 PM OPTICAL INSTRUMENTS SUPERVISOR PCLX Site Capillary 09/24/2023 4:59 PM OPTICAL INSTRUMENTS SUPERVISOR PCLX Last Intake 2-3 hours 09/24/2023 4:59 PM OPTICAL INSTRUMENTS SUPERVISOR PCLX Blood 09/24/2023 4:44 PM OPTICAL INSTRUMENTS SUPERVISOR 09/24/2023 5:00 PM OPTICAL INSTRUMENTS SUPERVISOR Unknown Provider LAB POCT ORDERABLES- MANUAL Performing Organization Address [facility] de Phone Number POC [facility] [address] [place] [address], [facility] PCLX [facility] POC [address] [place] [address] * (TTE) 2D ECHO DOPPLER COLOR (09/24/2023 3:26 PM OPTICAL INSTRUMENTS SUPERVISOR) Pathologist [facility] Ejection Fraction 64 MC CV EIMS Mid-Ascending [...] Region Laterality Modality Echocardiography 09/24/2023 1:57 PM OPTICAL INSTRUMENTS SUPERVISOR Impressions 09/24/2023 5:48 PM OPTICAL INSTRUMENTS SUPERVISOR Echocardiogram performed per dismissal echo protocol. Status [...] the Order-Level Documents. Narrative 09/24/2023 5:48 PM OPTICAL INSTRUMENTS SUPERVISOR For the complete report, see the Order-Level [...] disc not well seen. Mean aortic prosthetic acohmaxl34 mmHg; EOA 2.1 cm2. Trivial (washing jets) [...] P.A.-C. CV ECHO PROCE DURES * (ABNORMAL) Glucose, POCT (09/24/2023 12:43 PM OPTICAL INSTRUMENTS SUPERVISOR) Glucose, POCT, B 216(H) 70 - 140 mg/dL 09/24/2023 12:51 PM OPTICAL INSTRUMENTS SUPERVISOR PCLX Site Capillary 09/24/2023 12:51 PM OPTICAL INSTRUMENTS SUPERVISOR PCLX Last Intake 3-4 hours 09/24/2023 12:51 PM OPTICAL INSTRUMENTS SUPERVISOR PCLX Blood 09/24/2023 12:4 3 PM OPTICAL INSTRUMENTS SUPERVISOR 09/24/2023 12:51 PM OPTICAL INSTRUMENTS SUPERVISOR Unknown Provider LAB POCT ORDERABLES- MANUAL POC [facility] [address] [place] [address], [facility] PCLX [facility] POC [address] [place] [address] * Glucose, POCT (09/24/2023 7:19 AM OPTICAL INSTRUMENTS SUPERVISOR) Glucose, POCT, B 138 70 - 140 mg/dL 09/24/2023 7:30 AM OPTICAL INSTRUMENTS SUPERVISOR PCLX Site Capillary 09/24/2023 7:30 AM OPTICAL INSTRUMENTS SUPERVISOR PCLX Last Intake 3-4 hours 09/24/2023 7:30 AM OPTICAL INSTRUMENTS SUPERVISOR PCLX Blood 09/24/2023 7:19 AM OPTICAL INSTRUMENTS SUPERVISOR 09/24/2023 7:30 AM OPTICAL INSTRUMENTS SUPERVISOR Unknown Provider LAB POCT ORDERABLES- MANUAL POC [facility] [address] [place] [address], [facility] PCLX [facility] POC [address] [place] [address] * (ABNORMAL) Basic Metabolic Panel (09/24/2023 6:49 AM OPTICAL INSTRUMENTS SUPERVISOR) Pathologist [facility] Potassium, S 4.3 3.6 - 5.2 mmol/L 09/24/2023 8:25 AM [employer] SUPERVISOR DTL Sodium, S 138 135 - 145 mmol/L 09/24/2023 8:25 AM [employer] SUPERVISOR DTL Chloride, S 99 98 - 107 mmol/L 09/24/2023 8:25 AM [employer]UM[employer] SUPERVISOR DTL Bicarbonate, S 29 22 - 29 mmol/L 09/24/2023 8:25 AM [employer]UM[employer] SUPERVISOR DTL Anion Gap 10 7 - 15 09/24/2023 8:25 AM [employer]UM[employer] SUPERVISOR DTL BUN (Blood Urea Nitrogen), S 36(H) 8 - 24 mg/dL 09/24/2023 8:25 AM [employer] SUPERVISOR DTL Creatinine 2.48(H) 0.74 - 1.35 mg/dL 09/24/2023 8:25 AM [employer]UM[employer] SUPERVISOR DTL Estimated GFR (eGFR) 27(L) >=60 mL/min/BSA 09/24/2023 8:25 AM [employer] SUPERVISOR DTL Comment: Estimated GFR calculated using the 2020 CKD_EPI creatinine equation. Calcium, Total, S 8.3(L) 8.8 - 10.2 mg/dL 09/24/2023 8:25 AM [employer]UM[employer] SUPERVISOR DTL Glucose, S 148(H) 70 - 140 mg/dL 09/24/2023 8:25 AM [employer] SUPERVISOR DTL Blood (Blood, Venous) 09/24/2023 6:49 AM [employer] SUPERVISOR 09/24/2023 8:01 AM [employer] SUPERVISOR Laila Basurto P.A.-C. LAB BLOOD ADD -ON [facility] [address] [place], [place] [address] [address] [place] [address] * (ABNORMAL) Prothrombin Time (PT) (09/24/2023 6:49 AM [employer]UM[employer] SUPERVISOR) [facility] Prothrombin Time, P 28.9(H) 9.4 - 12.5 sec 09/24/2023 8:17 AM [employer]UM[employer] SUPERVISOR DTL INR 2.6 0.9 - 1.1 09/24/2023 8:17 AM [employer]UM[employer] SUPERVISOR DTL Comment: ----ADDITIONAL INFORMATION---- Standard intensity warfarin therapeutic range: 2.0 to 3.0 ?? High intensity warfarin therapeutic range: 2.5 to 3.5 Blood (Blood, Venous) 09/24/2023 6:49 AM [employer]UM[employer] SUPERVISOR 09/24/2023 7:44 AM [employer] SUPERVISOR Anette Hair APRN, C.N.P., D.N.P. LAB B LOOD ADD-ON [facility] [address] [place] [address], [facility] [address] [place] [address] * (ABNORMAL) CBC without Differential (09/24/2023 6:49 AM [employer] INSTRUMENTS SUPERVISOR) [facility] Hemoglobin 8.3(L) 13.2 - 16.6 g/dL 09/24/2023 8:01 AM [employer]STRUM[employer] SUPERVISOR DTL Hematocrit 24.2(L) 38.3 - 48.6 % 09/24/2023 8:01 AM [employer] INSTRUMENTS SUPERVISOR DTL Erythrocytes 2.62(L) 4.35 - 5.65 x10(12)/L 09/24/2023 8:01 AM [employer]ICAL INSTRUMENTS SUPERVISOR DTL MCV 92.4 78.2 - 97.9 fL 09/24/2023 8:01 AM OPTICAL INSTRUMENTS SUPERVISOR DTL RBC Distrib Width 13.3 11.8 - 14.5 % 09/24/2023 8:01 AM [employer]ICAL INSTRUMENTS SUPERVISOR DTL Platelet Count 163 135 - 317 x10(9)/L 09/24/2023 8:01 AM OPTICAL INSTRUMENTS SUPERVISOR DTL Leukocytes 6.4 3.4 - 9.6 x10(9)/L 09/24/2023 8:01 AM OPTICAL INSTRUMENTS SUPERVISOR DTL Blood (Blood, Venous) 09/24/2023 6:49 AM [employer]ICAL INSTRUMENTS SUPERVISOR 09/24/2023 7:46 AM [employer] INSTRUMENTS SUPERVISOR Jenny Jay, B.Betty., B.A.O. LAB BLOOD ADD-ON Performing Organization Address City/[facility]/ZIP Co de Phone Number [facility] [address] [place] [address], [facility] DTL [facility] [address] [place] [address] * (ABNORMAL) Glucose, POCT (09/23/2023 9:38 PM [employer] INSTRUMENTS SUPERVISOR) Glucose, POCT, B 186(H) 70 - 140 mg/dL 09/23/2023 9:51 PM OPTICAL INSTRUMENTS SUPERVISOR PCLX Site Capillary 09/23/2023 9:51 PM OPTICAL INSTRUMENTS SUPERVISOR PCLX Last Intake 1-2 hours 09/23/2023 9:51 PM [employer]ICAL INSTRUMENTS SUPERVISOR PCLX Blood 09/23/2023 9:38 PM [employer] INSTRUMENTS SUPERVISOR 09/23/2023 9:51 PM [employer] INSTRUMENTS SUPERVISOR Unknown Provider LAB POCT ORDERABLES- MANUAL Performing Organization Address [facility] de Phone Number POC [facility] [address] [place] [address], [facility] PCLX [facility] POC [address] [place] [address] * (ABNORMAL) Glucose, POCT (09/23/2023 5:02 PM OPT[employer] INSTRUMENTS SUPERVISOR) Glucose, POCT, B 190(H) 70 - 140 mg/dL 09/23/2023 5:17 PM OPTICAL INSTRUMENTS SUPERVISOR PCLX Site Capillary 09/23/2023 5:17 PM OPTICAL INSTRUMENTS SUPERVISOR PCLX Last Intake 3-4 hours 09/23/2023 5:17 PM OPTICAL INSTRUMENTS SUPERVISOR PCLX Blood 09/23/2023 5:02 PM [employer]ICAL INSTRUMENTS SUPERVISOR 09/23/2023 5:17 PM OPTICAL INSTRUMENTS SUPERVISOR Unknown Provider LAB POCT ORDERABLES- MANUAL Performing Organization Address City/[facility]/ZIP Co de Phone Number POC [facility] [address] [place] [address], [facility] PCLX [facility] [address] [place] [address] * (ABNORMAL) Basic Metabolic Panel (09/23/2023 3:44 PM [employer]ICAL INSTRUMENTS SUPERVISOR) Potassium, P 4.4 3.6 - 5.2 mmol/L 09/23/2023 4:06 PM OPTICAL INSTRUMENTS SUPERVISOR STMA Sodium, P 136 135 - 145 mmol/L 09/23/2023 4:06 PM OPTICAL INSTRUMENTS SUPERVISOR STMA Chloride, P 97(L) 98 - 107 mmol/L 09/23/2023 4:06 PM OPTICAL INSTRUMENTS SUPERVISOR STMA Bicarbonate, P 30(H) 22 - 29 mmol/L 09/23/2023 4:06 PM OPTICAL INSTRUMENTS SUPERVISOR STMA Anion Gap, P 9 7 - 15 09/23/2023 4:06 PM OPTICAL INSTRUMENTS SUPERVISOR STMA BUN (Blood Urea Nitrogen), P 42(H) 8 - 24 mg/dL 09/23/2023 4:06 PM OPTICAL INSTRUMENTS SUPERVISOR STMA Creatinine 2.54(H) 0.74 - 1.35 mg/dL 09/23/2023 4:06 PM OPTICAL INSTRUMENTS SUPERVISOR STMA Estimated GFR (eGFR) 26(L) >=60 mL/min/BSA 09/23/2023 4:06 PM OPTICAL INSTRUMENTS SUPERVISOR STMA Comment: Estimated GFR calculated using the 2020 CKD_EPI creatinine equation. Calcium, Total, P 8.9 8.8 - 10.2 mg/dL 09/23/2023 4:06 PM OPTICAL INSTRUMENTS SUPERVISOR STMA Glucose, P 213(H) 70 - 140 mg/dL 09/23/2023 4:06 PM OPTICAL INSTRUMENTS SUPERVISOR STMA Blood (Blood, Venous) 09/23/2023 3:44 PM [employer]ICAL INSTRUMENTS SUPERVISOR 09/23/2023 3:50 PM [employer]ICAL INSTRUMENTS SUPERVISOR Laila Basurto P.A.-C. LAB BLOOD ADD -ON [facility] [address] [place] [address], [facility] STMA [facility] [address] [place] [address] * (ABNORMAL) Hemoglobin (09/23/2023 3:44 PM [employer]STRUMENTS SUPERVISOR) Pathologist [facility] Hemoglobin 8.1(L) 13.2 - 16.6 g/dL 09/23/2023 3:52 PM [employer]ICAL INSTRUMENTS SUPERVISOR [facility] Blood (Blood, Venous) 09/23/2023 3:44 PM OPTICAL INSTRUMENTS SUPERVISOR 09/23/2023 3:49 PM [employer] INSTRUMENTS SUPERVISOR Laila Basurto P.A.-C. LAB BLOOD ADD -ON Performing Organization Address City/[facility]/ZIP Co de Phone Number [facility] [address] [place] [address], [facility] [address] [place] [address] * (ABNORMAL) Prothrombin Time (PT) (09/23/2023 3:44 PM [employer]STRUMENTS SUPERVISOR) [facility] Prothrombin Time, P 41.6(H) 9.4 - 12.5 sec 09/23/2023 3:56 PM [employer]ICAL INSTRUMENTS SUPERVISOR [facility] INR 3.7 0.9 - 1.1 09/23/2023 3:56 PM [employer]ICAL INSTRUMENTS SUPERVISOR [facility] Comment: ----ADDITIONAL INFORMATION---- Standard intensity warfarin therapeutic range: 2.0 to 3.0 ?? High intensity warfarin therapeutic range: 2.5 to 3.5 Blood (Blood, Venous) 09/23/2023 3:44 PM [employer] INSTRUMENTS SUPERVISOR 09/23/2023 3:49 PM [employer]ICAL INSTRUMENTS SUPERVISOR Laila Basurto P.A.-C. LAB BLOOD ADD -ON [facility] [address] [place] [address], [facility] [address] [place] [address] * (ABNORMAL) Glucose, POCT (09/23/2023 12:19 PM [employer] INSTRUMENTS SUPERVISOR) Pathologist [facility] Glucose, POCT, B 169(H) 70 - 140 mg/dL 09/23/2023 12:26 PM OPTICAL INSTRUMENTS SUPERVISOR PCLX Site Capillary 09/23/2023 12:26 PM OPTICAL INSTRUMENTS SUPERVISOR PCLX Last Intake 3-4 hours 09/23/2023 12:26 PM OPTICAL INSTRUMENTS SUPERVISOR PCLX Blood 09/23/2023 12:1 9 PM [employer] INSTRUMENTS SUPERVISOR 09/23/2023 12:26 PM [employer]ICAL INSTRUMENTS SUPERVISOR Unknown Provider LAB POCT ORDERABLES- MANUAL POC [facility] [address] [place] [address], [facility] PCLX [facility] POC [address] [place] [address] * DX Chest AP or PA and Lateral 2 Views (09/23/2023 8:44 AM [employer] INSTRUMENTS SUPERVISOR) Anatomical Region Laterality Modality Chest, Thoracic RST LOS, Tho racic ARZ LOS, Thoracic FLA LOS N/A Digital Radiography 09/23/2023 10:2 2 AM OPTICAL INSTRUMENTS SUPERVISOR Impressions 09/23/2023 10:23 AM [employer]ICAL INSTRUMENTS SUPERVISOR The right IJ vascular sheath has been removed since 09/20/2023. Improved aeration with decrease accentuation of the cardiovascular structures. Decrease vascular congestion. Likely similar small bilateral pleural effusions, allowing for differences in technique. Loop recorder, sternotomy, AVR, normal variant azygos lobe are again identified. Narrative 09/23/2023 10:23 AM OPTICAL INSTRUMENTS SUPERVISOR EXAM: ??DX CHEST AP OR PA AND LATERAL 2 VIEWS Procedure Note Juan Merritt M.D. - 09/23/2023 EXAM: DX CHEST AP OR PA AND LATERAL 2 VIEWS IMPRESSION: The right IJ vascular sheath has been removed since 09/20/2023. Improvedaeration with decrease accentuation of the cardiovascular structures.Decrease vascular congestion. Likely similar small bilateral pleuraleffusions, allowing for differences in technique. Loop recorder, sternotomy, AVR, normal variantazygos lobe are again identified. Laila Basurto P.A.-C. IMG DIAGNOSTI C IMAGING PROCEDURES * (ABNORMAL) Basic Metabolic Panel (09/23/2023 7:34 AM OPTICAL INSTRUMENTS SUPERVISOR) Potassium, S 4.5 3.6 - 5.2 mmol/L 09/23/2023 8:46 AM OPTICAL INSTRUMENTS SUPERVISOR DTL Sodium, S 135 135 - 145 mmol/L 09/23/2023 8:46 AM OPTICAL INSTRUMENTS SUPERVISOR DTL Chloride, S 98 98 - 107 mmol/L 09/23/2023 8:46 AM OPTICAL INSTRUMENTS SUPERVISOR DTL Bicarbonate, S 29 22 - 29 mmol/L 09/23/2023 8:46 AM OPTICAL INSTRUMENTS SUPERVISOR DTL Anion Gap 8 7 - 15 09/23/2023 8:46 AM OPTICAL INSTRUMENTS SUPERVISOR DTL BUN (Blood Urea Nitrogen), S 39(H) 8 - 24 mg/dL 09/23/2023 8:46 AM OPTICAL INSTRUMENTS SUPERVISOR DTL Creatinine 2.54(H) 0.74 - 1.35 mg/dL 09/23/2023 8:46 AM OPTICAL INSTRUMENTS SUPERVISOR DTL Estimated GFR (eGFR) 26(L) >=60 mL/min/BSA 09/23/2023 8:46 AM OPTICAL INSTRUMENTS SUPERVISOR DTL Comment: Estimated GFR calculated using the 2020 CKD_EPI creatinine equation. Calcium, Total, S 8.3(L) 8.8 - 10.2 mg/dL 09/23/2023 8:46 AM OPTICAL INSTRUMENTS SUPERVISOR DTL Glucose, S 159(H) 70 - 140 mg/dL 09/23/2023 8:46 AM OPTICAL INSTRUMENTS SUPERVISOR DTL Blood (Blood, Venous) 09/23/2023 7:34 AM OPTICAL INSTRUMENTS SUPERVISOR 09/23/2023 8:25 AM OPTICAL INSTRUMENTS SUPERVISOR Laila Basurto P.A.-C. LAB BLOOD ADD -ON [address] [address], [facility] [address] [place] [address] * (ABNORMAL) Prothrombin Time (PT) (09/23/2023 7:34 AM OPTICAL INSTRUMENTS SUPERVISOR) Prothrombin Time, P 35.5(H) 9.4 - 12.5 sec 09/23/2023 8:23 AM OPTICAL INSTRUMENTS SUPERVISOR DTL INR 3.2 0.9 - 1.1 09/23/2023 8:23 AM OPTICAL INSTRUMENTS SUPERVISOR DTL Comment: ----ADDITIONAL INFORMATION---- Standard intensity warfarin therapeutic range: 2.0 to 3.0 ?? High intensity warfarin therapeutic range: 2.5 to 3.5 Blood (Blood, Venous) 09/23/2023 7:34 AM [employer]ICAL INSTRUMENTS SUPERVISOR 09/23/2023 8:05 AM OPTICAL INSTRUMENTS SUPERVISOR Anette ClementeCata john APRN.NJarrettPJarrett, PetraNJarrettPJarrett LAB B LOOD ADD-ON Performing Organization Address [facility] Co de Phone Number [facility] [address] [place] [address], [facility] DTL [facility] [address] [place] [address] * (ABNORMAL) CBC without Differential (09/23/2023 7:34 AM OPTICAL INSTRUMENTS SUPERVISOR) Pathologist [facility] Hemoglobin 8.2(L) 13.2 - 16.6 g/dL 09/23/2023 8:13 AM OPTICAL INSTRUMENTS SUPERVISOR DTL Hematocrit 24.2(L) 38.3 - 48.6 % 09/23/2023 8:13 AM OPTICAL INSTRUMENTS SUPERVISOR DTL Erythrocytes 2.67(L) 4.35 - 5.65 x10(12)/L 09/23/2023 8:13 AM OPTICAL INSTRUMENTS SUPERVISOR DTL MCV 90.6 78.2 - 97.9 fL 09/23/2023 8:13 AM OPTICAL INSTRUMENTS SUPERVISOR DTL RBC Distrib Width 13.2 11.8 - 14.5 % 09/23/2023 8:13 AM OPTICAL INSTRUMENTS SUPERVISOR DTL Platelet Count 147 135 - 317 x10(9)/L 09/23/2023 8:13 AM OPTICAL INSTRUMENTS SUPERVISOR DTL Leukocytes 8.3 3.4 - 9.6 x10(9)/L 09/23/2023 8:13 AM OPTICAL INSTRUMENTS SUPERVISOR DTL Blood (Blood, Venous) 09/23/2023 7:34 AM OPTICAL INSTRUMENTS SUPERVISOR 09/23/2023 8:04 AM OPTICAL INSTRUMENTS SUPERVISOR Jenny Jay, BKolby., B.A.O. LAB BLOOD ADD-ON Performing Organization Address City/[facility]/ZIP Co de Phone Number [facility] [address] [place] [address], [facility] DTL [facility] [address] [place] [address] * (ABNORMAL) Hepatic Function Panel (09/23/2023 7:31 AM OPTICAL INSTRUMENTS SUPERVISOR) Bilirubin, Total, S 0.5 0.0 - 1.2 mg/dL 09/23/2023 9:47 AM OPTICAL INSTRUMENTS SUPERVISOR DTL Bilirubin, Direct, S <0.2 0.0 - 0.3 mg/dL 09/23/2023 9:47 AM OPTICAL INSTRUMENTS SUPERVISOR DTL Aspartate Aminotransferase (AST), S 21 8 - 48 U/L 09/23/2023 9:47 AM OPTICAL INSTRUMENTS SUPERVISOR DTL Alanine Aminotransferase (ALT), S 9 7 - 55 U/L 09/23/2023 9:47 AM OPTICAL INSTRUMENTS SUPERVISOR DTL Alkaline Phosphatase, S 63 40 - 129 U/L 09/23/2023 9:47 AM OPTICAL INSTRUMENTS SUPERVISOR DTL Albumin, S 3.0(L) 3.5 - 5.0 g/dL 09/23/2023 9:47 AM OPTICAL INSTRUMENTS SUPERVISOR DTL Protein, Total, S 4.9(L) 6.3 - 7.9 g/dL 09/23/2023 9:47 AM OPTICAL INSTRUMENTS SUPERVISOR DTL Blood (Blood, Venous) 09/23/2023 7:31 AM OPTICAL INSTRUMENTS SUPERVISOR 09/23/2023 9:19 AM OPTICAL INSTRUMENTS SUPERVISOR Laila Basurto P.A.-C. LAB BLOOD ADD -ON [facility] [address] [place] [address], [facility] DTL [facility] [address] [place] [address] * (ABNORMAL) Glucose, POCT (09/23/2023 7:24 AM OPTICAL INSTRUMENTS SUPERVISOR) Glucose, POCT, B 147(H) 70 - 140 mg/dL 09/23/2023 7:40 AM OPTICAL INSTRUMENTS SUPERVISOR PCLX Site Capillary 09/23/2023 7:40 AM OPTICAL INSTRUMENTS SUPERVISOR PCLX Last Intake 3-4 hours 09/23/2023 7:40 AM OPTICAL INSTRUMENTS SUPERVISOR PCLX Blood 09/23/2023 7:24 AM OPTICAL INSTRUMENTS SUPERVISOR 09/23/2023 7:40 AM OPTICAL INSTRUMENTS SUPERVISOR Unknown Provider LAB POCT ORDERABLES- MANUAL POC [facility] [address] [place] [address], [facility] PCLX [facility] POC [address] [place] [address] * (ABNORMAL) Basic Metabolic Panel (09/22/2023 11:14 PM OPTICAL INSTRUMENTS SUPERVISOR) Potassium, P 4.4 3.6 - 5.2 mmol/L 09/22/2023 11:40 PM OPTICAL INSTRUMENTS SUPERVISOR STMA Sodium, P 134(L) 135 - 145 mmol/L 09/22/2023 11:40 PM OPTICAL INSTRUMENTS SUPERVISOR STMA Chloride, P 94(L) 98 - 107 mmol/L 09/22/2023 11:40 PM OPTICAL INSTRUMENTS SUPERVISOR STMA Bicarbonate, P 28 22 - 29 mmol/L 09/22/2023 11:40 PM OPTICAL INSTRUMENTS SUPERVISOR STMA Anion Gap, P 12 7 - 15 09/22/2023 11:40 PM OPTICAL INSTRUMENTS SUPERVISOR STMA BUN (Blood Urea Nitrogen), P 40(H) 8 - 24 mg/dL 09/22/2023 11:40 PM OPTICAL INSTRUMENTS SUPERVISOR STMA Creatinine 2.38(H) 0.74 - 1.35 mg/dL 09/22/2023 11:40 PM OPTICAL INSTRUMENTS SUPERVISOR STMA Estimated GFR (eGFR) 28(L) >=60 mL/min/BSA 09/22/2023 11:40 PM OPTICAL INSTRUMENTS SUPERVISOR STMA Comment: Estimated GFR calculated using the 2020 CKD_EPI creatinine equation. Calcium, Total, P 8.7(L) 8.8 - 10.2 mg/dL 09/22/2023 11:40 PM OPTICAL INSTRUMENTS SUPERVISOR STMA Glucose, P 146(H) 70 - 140 mg/dL 09/22/2023 11:40 PM OPTICAL INSTRUMENTS SUPERVISOR STMA Blood (Blood, Venous) 09/22/2023 11:14 PM OPTICAL INSTRUMENTS SUPERVISOR 09/22/2023 11:24 PM OPTICAL INSTRUMENTS SUPERVISOR Marcela Lee APRN, C.N.P., M.S.N. LAB BLOO D ADD-ON [facility] [address] [place], [place] [address] [address] [place] [address] * (ABNORMAL) CBC without Differential (09/22/2023 11:14 PM OPTICAL INSTRUMENTS SUPERVISOR) Pathologist [facility] Hemoglobin 8.6(L) 13.2 - 16.6 g/dL 09/22/2023 11:26 PM OPTICAL INSTRUMENTS SUPERVISOR STMA Hematocrit 25.7(L) 38.3 - 48.6 % 09/22/2023 11:26 PM OPTICAL INSTRUMENTS SUPERVISOR STMA Erythrocytes 2.89(L) 4.35 - 5.65 x10(12)/L 09/22/2023 11:26 PM OPTICAL INSTRUMENTS SUPERVISOR STMA MCV 88.9 78.2 - 97.9 fL 09/22/2023 11:26 PM OPTICAL INSTRUMENTS SUPERVISOR STMA RBC Distrib Width 13.2 11.8 - 14.5 % 09/22/2023 11:26 PM OPTICAL INSTRUMENTS SUPERVISOR STMA Platelet Count 146 135 - 317 x10(9)/L 09/22/2023 11:26 PM OPTICAL INSTRUMENTS SUPERVISOR STMA Leukocytes 9.3 3.4 - 9.6 x10(9)/L 09/22/2023 11:26 PM OPTICAL INSTRUMENTS SUPERVISOR STMA Blood (Blood, Venous) 09/22/2023 11:14 PM OPTICAL INSTRUMENTS SUPERVISOR 09/22/2023 11:24 PM OPTICAL INSTRUMENTS SUPERVISOR Marcela Lee APRN C.N.P., M.S.N. LAB BLOO D ADD-ON [facility] [address] [place], [place] [address] [place] [address] [address] [place] [address] * (ABNORMAL) Glucose, POCT (09/22/2023 9:29 PM OPTICAL INSTRUMENTS SUPERVISOR) Pathologist [facility] Glucose, POCT, B 159(H) 70 - 140 mg/dL 09/22/2023 9:31 PM OPTICAL INSTRUMENTS SUPERVISOR PCLX Blood 09/22/2023 9:29 PM OPTICAL INSTRUMENTS SUPERVISOR 09/22/2023 9:32 PM OPTICAL INSTRUMENTS SUPERVISOR Unknown Provider LAB POCT ORDERABLES- MANUAL POC [facility] [address] [place] [address], [facility] PCLX [facility] POC [address] [place] [address] * Transfuse Red Blood Cells : (09/22/2023 4:21 PM OPTICAL INSTRUMENTS SUPERVISOR) Laila Basurto P.A.-C. BLOOD TRANSFU RAHUL ORDERABLES * Transfuse Red Blood Cells : , 1 Units (09/22/2023 4:21 PM OPTICAL INSTRUMENTS SUPERVISOR) Laila Barbosadeen P.A.-C. BLOOD TRANSFU RAHUL ORDERABLES * (ABNORMAL) Glucose, POCT (09/22/2023 11:27 AM OPTICAL INSTRUMENTS SUPERVISOR) Glucose, POCT, B 192(H) 70 - 140 mg/dL 09/22/2023 11:36 AM OPTICAL INSTRUMENTS SUPERVISOR PCLX Site Capillary 09/22/2023 11:36 AM OPTICAL INSTRUMENTS SUPERVISOR PCLX Last Intake 1-2 hours 09/22/2023 11:36 AM OPTICAL INSTRUMENTS SUPERVISOR PCLX Blood 09/22/2023 11:2 7 AM OPTICAL INSTRUMENTS SUPERVISOR 09/22/2023 11:37 AM OPTICAL INSTRUMENTS SUPERVISOR Unknown Provider LAB POCT ORDERABLES- MANUAL Performing Organization Address [facility] Co de Phone Number POC [facility] [address] [place] [address], [facility] PCLX [facility] POC [address] [place] [address] * Glucose, POCT (09/22/2023 7:34 AM OPTICAL INSTRUMENTS SUPERVISOR) Glucose, POCT, B 133 70 - 140 mg/dL 09/22/2023 7:46 AM OPTICAL INSTRUMENTS SUPERVISOR PCLX Site Capillary 09/22/2023 7:46 AM OPTICAL INSTRUMENTS SUPERVISOR PCLX Last Intake 3-4 hours 09/22/2023 7:46 AM OPTICAL INSTRUMENTS SUPERVISOR PCLX Blood 09/22/2023 7:34 AM OPTICAL INSTRUMENTS SUPERVISOR 09/22/2023 7:46 AM OPTICAL INSTRUMENTS SUPERVISOR Unknown Provider LAB POCT ORDERABLES- MANUAL Performing Organization Address City/[facility]/ZIP Co de Phone Number POC [facility] [address] [place] [address], [facility] PCLX [facility] POC [address] [place] [address] * (ABNORMAL) Basic Metabolic Panel (09/22/2023 7:04 AM OPTICAL INSTRUMENTS SUPERVISOR) [facility] Potassium, S 4.5 3.6 - 5.2 mmol/L 09/22/2023 8:18 AM OPTICAL INSTRUMENTS SUPERVISOR DTL Sodium, S 135 135 - 145 mmol/L 09/22/2023 8:18 AM OPTICAL INSTRUMENTS SUPERVISOR DTL Chloride, S 99 98 - 107 mmol/L 09/22/2023 8:18 AM OPTICAL INSTRUMENTS SUPERVISOR DTL Bicarbonate, S 28 22 - 29 mmol/L 09/22/2023 8:18 AM OPTICAL INSTRUMENTS SUPERVISOR DTL Anion Gap 8 7 - 15 09/22/2023 8:18 AM OPTICAL INSTRUMENTS SUPERVISOR DTL BUN (Blood Urea Nitrogen), S 37(H) 8 - 24 mg/dL 09/22/2023 8:18 AM OPTICAL INSTRUMENTS SUPERVISOR DTL Creatinine 2.38(H) 0.74 - 1.35 mg/dL 09/22/2023 8:18 AM OPTICAL INSTRUMENTS SUPERVISOR DTL Estimated GFR (eGFR) 28(L) >=60 mL/min/BSA 09/22/2023 8:18 AM OPTICAL INSTRUMENTS SUPERVISOR DTL Comment: Estimated GFR calculated using the 2020 CKD_EPI creatinine equation. Calcium, Total, S 8.5(L) 8.8 - 10.2 mg/dL 09/22/2023 8:18 AM OPTICAL INSTRUMENTS SUPERVISOR DTL Glucose, S 141(H) 70 - 140 mg/dL 09/22/2023 8:18 AM OPTICAL INSTRUMENTS SUPERVISOR DTL Blood (Blood, Venous) 09/22/2023 7:04 AM OPTICAL INSTRUMENTS SUPERVISOR 09/22/2023 7:58 AM OPTICAL INSTRUMENTS SUPERVISOR Laila Basurto P.A.-C. LAB BLOOD ADD -ON [facility] [address] [place] [address], [facility] DTL [facility] [address] [place] [address] * (ABNORMAL) Prothrombin Time (PT) (09/22/2023 7:04 AM OPTICAL INSTRUMENTS SUPERVISOR) Prothrombin Time, P 16.7(H) 9.4 - 12.5 sec 09/22/2023 7:53 AM OPTICAL INSTRUMENTS SUPERVISOR DTL INR 1.5 0.9 - 1.1 09/22/2023 7:53 AM OPTICAL INSTRUMENTS SUPERVISOR DTL Comment: ----ADDITIONAL INFORMATION---- Standard intensity warfarin therapeutic range: 2.0 to 3.0 ?? High intensity warfarin therapeutic range: 2.5 to 3.5 Blood (Blood, Venous) 09/22/2023 7:04 AM OPTICAL INSTRUMENTS SUPERVISOR 09/22/2023 7:37 AM OPTICAL INSTRUMENTS SUPERVISOR Anette Hair APRN, C.N.P., D.N.P. LAB B LOOD ADD-ON [facility] [address] [place] [address], [facility] [address] [address] * (ABNORMAL) CBC without Differential (09/22/2023 7:04 AM OPTICAL INSTRUMENTS SUPERVISOR) Pathologist [facility] Hemoglobin 7.3(L) 13.2 - 16.6 g/dL 09/22/2023 7:47 AM OPTICAL INSTRUMENTS SUPERVISOR DTL Hematocrit 21.0(L) 38.3 - 48.6 % 09/22/2023 7:47 AM OPTICAL INSTRUMENTS SUPERVISOR DTL Erythrocytes 2.36(L) 4.35 - 5.65 x10(12)/L 09/22/2023 7:47 AM OPTICAL INSTRUMENTS SUPERVISOR DTL MCV 89.0 78.2 - 97.9 fL 09/22/2023 7:47 AM OPTICAL INSTRUMENTS SUPERVISOR DTL RBC Distrib Width 13.1 11.8 - 14.5 % 09/22/2023 7:47 AM OPTICAL INSTRUMENTS SUPERVISOR DTL Platelet Count 129(L) 135 - 317 x10(9)/L 09/22/2023 8:40 AM OPTICAL INSTRUMENTS SUPERVISOR DTL Comment:Results confirmed by smear, no clumping or interference seen. Leukocytes 9.2 3.4 - 9.6 x10(9)/L 09/22/2023 8:40 AM OPTICAL INSTRUMENTS SUPERVISOR DTL Blood (Blood, Venous) 09/22/2023 7:04 AM OPTICAL INSTRUMENTS SUPERVISOR 09/22/2023 7:37 AM OPTICAL INSTRUMENTS SUPERVISOR Jenny Jay, BKolby., B.A.O. LAB BLOOD ADD-ON [facility] [address] [place] [address], [facility] DTL [facility] [address] [place] [address] * Type and Screen (with Reflex Antibody ID) (09/22/2023 7:01 AM OPTICAL INSTRUMENTS SUPERVISOR) Pathologist [facility] ABORh A Neg Not applicable 09/22/2023 2:10 PM OPTICAL INSTRUMENTS SUPERVISOR STRM Antibody Screen Negative Negative 09/22/2023 2:19 PM OPTICAL INSTRUMENTS SUPERVISOR STRM Type & Screen Expiration 09/25/2023 23:59 09/22/2023 2:10 PM OPTICAL INSTRUMENTS SUPERVISOR STRM Testing Location Mercedes DEFAULT 09/22/2023 1:41 PM OPTICAL INSTRUMENTS SUPERVISOR STRM Blood (Blood, Venous) 09/22/2023 7:01 AM OPTICAL INSTRUMENTS SUPERVISOR 09/22/2023 1:41 PM OPTICAL INSTRUMENTS SUPERVISOR Laila Basurto P.A.-C. LAB BLOOD BAN K TEST ORDERABLES Performing Organization Address [facility] Co de Phone Number [facility] [address] [place] [address], [facility] STRM [facility] [address] [place] [address] * (ABNORMAL) Glucose, POCT (09/21/2023 10:52 PM OPTICAL INSTRUMENTS SUPERVISOR) [facility] Glucose, POCT, B 161(H) 70 - 140 mg/dL 09/21/2023 10:57 PM OPTICAL INSTRUMENTS SUPERVISOR PCLX Site Capillary 09/21/2023 10:57 PM OPTICAL INSTRUMENTS SUPERVISOR PCLX Last Intake 2-3 hours 09/21/2023 10:57 PM OPTICAL INSTRUMENTS SUPERVISOR PCLX Blood 09/21/2023 10:5 2 PM OPTICAL INSTRUMENTS SUPERVISOR 09/21/2023 10:57 PM OPTICAL INSTRUMENTS SUPERVISOR Unknown Provider LAB POCT ORDERABLES- MANUAL POC [facility] [address] [place] [address], [place] PCLX [facility] POC [address] [place] [address] * (ABNORMAL) Glucose, POCT (09/21/2023 7:07 PM OPTICAL INSTRUMENTS SUPERVISOR) Glucose, POCT, B 141(H) 70 - 140 mg/dL 09/21/2023 7:20 PM [employer] SUPERVISOR PCL[facility] Site Capillary 09/21/2023 7:20 PM [employer] SUPERVISOR PCLX Last Intake <1 hour 09/21/2023 7:20 PM [employer] SUPERVISOR PCLX Blood 09/21/2023 7:07 PM [employer] SUPERVISOR 09/21/2023 7:20 PM [employer] SUPERVISOR Unknown Provider LAB POCT ORDERABLES- MANUAL Performing Organization Address City/[facility]/ZIP Co de Phone Number POC [facility] [address] [place] [address], [place] [facility] [address] [place] [address] * (ABNORMAL) Glucose, POCT (09/21/2023 11:27 AM [employer] SUPERVISOR) Glucose, POCT, B 190(H) 70 - 140 mg/dL 09/21/2023 11:29 AM [employer] SUPERVISOR PCLX Site ARTLINE 09/21/2023 11:29 AM [employer] SUPERVISOR PCLX Blood 09/21/2023 11:2 7 AM [employer] SUPERVISOR 09/21/2023 11:29 AM [employer] SUPERVISOR Unknown Provider LAB POCT ORDERABLES- MANUAL POC [facility] [address] [place] [address], [place] [facility] [address] [place] [address] * (ABNORMAL) Glucose, POCT (09/21/2023 8:50 AM [employer] SUPERVISOR) Glucose, POCT, B 145(H) 70 - 140 mg/dL 09/21/2023 8:52 AM [employer] SUPERVISOR PCLX Site ARTLINE 09/21/2023 8:52 AM [employer] SUPERVISOR PCLX Blood 09/21/2023 8:50 AM [employer] SUPERVISOR 09/21/2023 8:52 AM [employer] SUPERVISOR Unknown Provider LAB POCT ORDERABLES- MANUAL Performing Organization Address City/[facility] Co de Phone Number POC [facility] [address] [place] [address], [facility] [address] [place] [address] * (ABNORMAL) Prothrombin Time (PT) (09/21/2023 7:47 AM [employer] SUPERVISOR) Prothrombin Time, P 13.8(H) 9.4 - 12.5 sec 09/21/2023 7:58 AM OPTICAL INSTRUMENTS SUPERVISOR STMA INR 1.3 0.9 - 1.1 09/21/2023 7:58 AM OPTICAL INSTRUMENTS SUPERVISOR STMA Comment: ----ADDITIONAL INFORMATION---- Standard intensity warfarin therapeutic range: 2.0 to 3.0 ?? High intensity warfarin therapeutic range: 2.5 to 3.5 Blood (Blood, Venous) 09/21/2023 7:47 AM OPTICAL INSTRUMENTS SUPERVISOR 09/21/2023 7:51 AM OPTICAL INSTRUMENTS SUPERVISOR Anette Hair APRN, C.N.P., D.N.P. LAB B LOOD ADD-ON Performing Organization Address [facility] de Phone Number [facility] [address] [place] [address], [facility] STMA [facility] [address] [place] [address] * Patient Status (09/21/2023 6:35 AM OPTICAL INSTRUMENTS SUPERVISOR) Pathologist [facility] FIO2 0.21 0.21=AIR 09/21/2023 6:39 AM OPTICAL INSTRUMENTS SUPERVISOR STMA Spont. breaths/min 18 09/21/2023 6:39 AM OPTICAL INSTRUMENTS SUPERVISOR STMA Blood 09/21/2023 6:35 AM OPTICAL INSTRUMENTS SUPERVISOR 09/21/2023 6:39 AM OPTICAL INSTRUMENTS SUPERVISOR Bryce Wills M.D. LAB BLOOD NON ADD-ON Performing Organization Address City/[facility] Co de Phone Number [facility] [address] [place] [address], [facility] [address] [place] [address] * (ABNORMAL) Blood Gas with Coox, Arterial (09/21/2023 6:35 AM OPTICAL INSTRUMENTS SUPERVISOR) pO2 67(L) 83 - 108 mm Hg 09/21/2023 6:41 AM OPTICAL INSTRUMENTS SUPERVISOR STMA pCO2 46 35 - 48 mm Hg 09/21/2023 6:41 AM OPTICAL INSTRUMENTS SUPERVISOR STMA pH 7.41 7.35 - 7.45 pH 09/21/2023 6:41 AM OPTICAL INSTRUMENTS SUPERVISOR STMA Base Excess 4(H) -2 - 3 mmol/L 09/21/2023 6:41 AM OPTICAL INSTRUMENTS SUPERVISOR STMA HCO3 29(H) 22 - 26 mmol/L 09/21/2023 6:41 AM OPTICAL INSTRUMENTS SUPERVISOR STMA Hemoglobin, Venous 8.2(L) 13.2 - 16.6 g/dL 09/21/2023 6:41 AM OPTICAL INSTRUMENTS SUPERVISOR STMA O2Hb 92.5(L) 94.0 - 98.0 % 09/21/2023 6:41 AM OPTICAL INSTRUMENTS SUPERVISOR STMA COHb 2.0 <3.0 % 09/21/2023 6:42 AM OPTICAL INSTRUMENTS SUPERVISOR STMA MetHb <1.0 <1.5 % 09/21/2023 6:41 AM OPTICAL INSTRUMENTS SUPERVISOR STMA CtO2 10.8(L) 18.0 - 21.0 vol % 09/21/2023 6:42 AM OPTICAL INSTRUMENTS SUPERVISOR STMA Arterial Sample Site Art Line 09/21/2023 6:41 AM OPTICAL INSTRUMENTS SUPERVISOR STMA Comment:Mina's test not don e. Blood (Blood, Arterial) 09/21/2023 6:35 AM OPTICAL INSTRUMENTS SUPERVISOR 09/21/2023 6:39 AM OPTICAL INSTRUMENTS SUPERVISOR Bryce Wills M.D. LAB BLOOD NON ADD-ON [facility] [address] [place] [address], [facility] [address] [place] [address] * (ABNORMAL) Glucose, POCT (09/21/2023 6:31 AM OPTICAL INSTRUMENTS SUPERVISOR) Pathologist [facility] Glucose, POCT, B 164(H) 70 - 140 mg/dL 09/21/2023 6:32 AM OPTICAL INSTRUMENTS SUPERVISOR PCLX Site ARTLINE 09/21/2023 6:32 AM OPTICAL INSTRUMENTS SUPERVISOR PCLX Blood 09/21/2023 6:31 AM OPTICAL INSTRUMENTS SUPERVISOR 09/21/2023 6:32 AM OPTICAL INSTRUMENTS SUPERVISOR Unknown Provider LAB POCT ORDERABLES- MANUAL Performing Organization Address City/State/[facility] Co de Phone Number POC [facility] [address] [place] [address], [facility] PCLX [facility] POC [address] [place] [address] * (ABNORMAL) Basic Metabolic Panel (09/21/2023 5:11 AM OPTICAL INSTRUMENTS SUPERVISOR) Pathologist [facility] Potassium, P 5.1 3.6 - 5.2 mmol/L 09/21/2023 5:45 AM OPTICAL INSTRUMENTS SUPERVISOR STMA Sodium, P 135 135 - 145 mmol/L 09/21/2023 5:45 AM OPTICAL INSTRUMENTS SUPERVISOR STMA Chloride, P 101 98 - 107 mmol/L 09/21/2023 5:45 AM OPTICAL INSTRUMENTS SUPERVISOR STMA Bicarbonate, P 27 22 - 29 mmol/L 09/21/2023 5:45 AM OPTICAL INSTRUMENTS SUPERVISOR STMA Anion Gap, P 7 7 - 15 09/21/2023 5:45 AM OPTICAL INSTRUMENTS SUPERVISOR STMA BUN (Blood Urea Nitrogen), P 33(H) 8 - 24 mg/dL 09/21/2023 5:45 AM OPTICAL INSTRUMENTS SUPERVISOR STMA Creatinine 2.39(H) 0.74 - 1.35 mg/dL 09/21/2023 5:45 AM OPTICAL INSTRUMENTS SUPERVISOR STMA Estimated GFR (eGFR) 28(L) >=60 mL/min/BSA 09/21/2023 5:45 AM OPTICAL INSTRUMENTS SUPERVISOR STMA Comment: Estimated GFR calculated using the 2020 CKD_EPI creatinine equation. Calcium, Total, P 8.9 8.8 - 10.2 mg/dL 09/21/2023 5:45 AM OPTICAL INSTRUMENTS SUPERVISOR STMA Glucose, P 166(H) 70 - 140 mg/dL 09/21/2023 5:45 AM OPTICAL INSTRUMENTS SUPERVISOR STMA Blood (Blood, Venous) 09/21/2023 5:11 AM OPTICAL INSTRUMENTS SUPERVISOR 09/21/2023 5:25 AM OPTICAL INSTRUMENTS SUPERVISOR Enmanuel Edward P.A.-C. LAB BLOOD ADD-ON Performing Organization Address City/[facility]/ZIP Co de Phone Number [facility] [address] [place] [address] * (ABNORMAL) Phosphorus Inorganic (09/21/2023 5:11 AM OPTICAL INSTRUMENTS SUPERVISOR) Pathologist [facility] Phosphorus (Inorganic), S 5.4(H) 2.5 - 4.5 mg/dL 09/21/2023 6:03 AM OPTICAL INSTRUMENTS SUPERVISOR DTL Blood (Blood, Venous) 09/21/2023 5:11 AM OPTICAL INSTRUMENTS SUPERVISOR 09/21/2023 5:50 AM OPTICAL INSTRUMENTS SUPERVISOR Enmanuel Edward P.A.-C. LAB BLOOD ADD-ON Performing Organization Address City/[facility] Co de Phone Number [facility] [address] [place], [place] [id number] [place] [address] [address] [place] [address] * (ABNORMAL) Magnesium (09/21/2023 5:11 AM OPTICAL INSTRUMENTS SUPERVISOR) Pathologist [facility] Magnesium, S 2.4(H) 1.7 - 2.3 mg/dL 09/21/2023 6:03 AM OPTICAL INSTRUMENTS SUPERVISOR DTL Blood (Blood, Venous) 09/21/2023 5:11 AM OPTICAL INSTRUMENTS SUPERVISOR 09/21/2023 5:50 AM OPTICAL INSTRUMENTS SUPERVISOR Enmanuel Edward P.A.-C. LAB BLOOD ADD-ON Performing Organization Address City/[facility]/ZIP Co de Phone Number [facility] [address] [place], [place] [phone] [place] [address] 200 [place] [address] * (ABNORMAL) CBC without Differential (09/21/2023 5:11 AM OPTICAL INSTRUMENTS SUPERVISOR) Hemoglobin 8.1(L) 13.2 - 16.6 g/dL 09/21/2023 6:04 AM OPTICAL INSTRUMENTS SUPERVISOR DTL Hematocrit 23.3(L) 38.3 - 48.6 % 09/21/2023 6:04 AM OPTICAL INSTRUMENTS SUPERVISOR DTL Erythrocytes 2.64(L) 4.35 - 5.65 x10(12)/L 09/21/2023 6:04 AM OPTICAL INSTRUMENTS SUPERVISOR DTL MCV 88.3 78.2 - 97.9 fL 09/21/2023 6:04 AM OPTICAL INSTRUMENTS SUPERVISOR DTL RBC Distrib Width 13.8 11.8 - 14.5 % 09/21/2023 6:04 AM OPTICAL INSTRUMENTS SUPERVISOR DTL Platelet Count 139 135 - 317 x10(9)/L 09/21/2023 6:04 AM OPTICAL INSTRUMENTS SUPERVISOR DTL Leukocytes 12.5(H) 3.4 - 9.6 x10(9)/L 09/21/2023 6:04 AM OPTICAL INSTRUMENTS SUPERVISOR DTL Blood (Blood, Venous) 09/21/2023 5:11 AM OPTICAL INSTRUMENTS SUPERVISOR 09/21/2023 5:40 AM OPTICAL INSTRUMENTS SUPERVISOR Jenny Jay, B.Ch., B.A.O. LAB BLOOD ADD-ON [address] [address], [address] [address] * (ABNORMAL) Basic Metabolic Panel (09/21/2023 12:21 AM OPTICAL INSTRUMENTS SUPERVISOR) Potassium, P 5.3(H) 3.6 - 5.2 mmol/L 09/21/2023 1:08 AM OPTICAL INSTRUMENTS SUPERVISOR DTL Sodium, P 135 135 - 145 mmol/L 09/21/2023 1:08 AM OPTICAL INSTRUMENTS SUPERVISOR DTL Chloride, P 102 98 - 107 mmol/L 09/21/2023 1:08 AM OPTICAL INSTRUMENTS SUPERVISOR DTL Bicarbonate, P 25 22 - 29 mmol/L 09/21/2023 1:08 AM OPTICAL INSTRUMENTS SUPERVISOR DTL Anion Gap, P 8 7 - 15 09/21/2023 1:08 AM OPTICAL INSTRUMENTS SUPERVISOR DTL BUN (Blood Urea Nitrogen), P 30(H) 8 - 24 mg/dL 09/21/2023 1:08 AM OPTICAL INSTRUMENTS SUPERVISOR DTL Creatinine 2.42(H) 0.74 - 1.35 mg/dL 09/21/2023 1:08 AM OPTICAL INSTRUMENTS SUPERVISOR DTL Estimated GFR (eGFR) 28(L) >=60 mL/min/BSA 09/21/2023 1:08 AM OPTICAL INSTRUMENTS SUPERVISOR DTL Comment: Estimated GFR calculated using the 2020 CKD_EPI creatinine equation. Calcium, Total, P 8.9 8.8 - 10.2 mg/dL 09/21/2023 1:08 AM OPTICAL INSTRUMENTS SUPERVISOR DTL Glucose, P 170(H) 70 - 140 mg/dL 09/21/2023 1:08 AM OPTICAL INSTRUMENTS SUPERVISOR DTL Blood (Blood, Venous) 09/21/2023 12:21 AM OPTICAL INSTRUMENTS SUPERVISOR 09/21/2023 12:54 AM OPTICAL INSTRUMENTS SUPERVISOR Enmanuel Edward P.A.-C. LAB BLOOD ADD-ON Performing Organization Address City/[facility]/ZIP Co de Phone Number [facility] [address] [place] [address], [facility] [address] [place] [address] * (ABNORMAL) Glucose, POCT (09/20/2023 8:33 PM OPTICAL INSTRUMENTS SUPERVISOR) Pathologist [facility] Glucose, POCT, B 196(H) 70 - 140 mg/dL 09/20/2023 8:39 PM OPTICAL INSTRUMENTS SUPERVISOR PCLX Blood 09/20/2023 8:33 PM OPTICAL INSTRUMENTS SUPERVISOR 09/20/2023 8:39 PM OPTICAL INSTRUMENTS SUPERVISOR Unknown Provider LAB POCT ORDERABLES- MANUAL POC [facility] [address] [place] [address], [facility] PCLX [facility] [address] [place] [address] * Potassium (09/20/2023 8:33 PM OPTICAL INSTRUMENTS SUPERVISOR) Potassium, P 5.0 3.6 - 5.2 mmol/L 09/20/2023 8:56 PM OPTICAL INSTRUMENTS SUPERVISOR STMA Blood (Blood, Venous) 09/20/2023 8:33 PM OPTICAL INSTRUMENTS SUPERVISOR 09/20/2023 8:38 PM OPTICAL INSTRUMENTS SUPERVISOR Yenifer Mercado P.A.-C. LAB BLOOD ADD -ON [facility] [address] [place] [address], [facility] STMA [facility] [address] [place] [address] * (ABNORMAL) Glucose, POCT (09/20/2023 4:31 PM OPTICAL INSTRUMENTS SUPERVISOR) Pathologist [facility] Glucose, POCT, B 182(H) 70 - 140 mg/dL 09/20/2023 4:32 PM OPTICAL INSTRUMENTS SUPERVISOR PCLX Site ARTLINE 09/20/2023 4:32 PM OPTICAL INSTRUMENTS SUPERVISOR PCLX Blood 09/20/2023 4:31 PM OPTICAL INSTRUMENTS SUPERVISOR 09/20/2023 4:32 PM OPTICAL INSTRUMENTS SUPERVISOR Unknown Provider LAB POCT ORDERABLES- MANUAL Performing Organization Address City/[facility]/ZIP Co de Phone Number POC [facility] [address] [place] [address], [facility] PCLX [facility] POC [address] [place] [address] * (ABNORMAL) Basic Metabolic Panel (09/20/2023 4:27 PM OPTICAL INSTRUMENTS SUPERVISOR) [facility] Potassium, P 5.5(H) 3.6 - 5.2 mmol/L 09/20/2023 5:03 PM OPTICAL INSTRUMENTS SUPERVISOR STMA Sodium, P 136 135 - 145 mmol/L 09/20/2023 5:03 PM OPTICAL INSTRUMENTS SUPERVISOR STMA Chloride, P 102 98 - 107 mmol/L 09/20/2023 5:03 PM OPTICAL INSTRUMENTS SUPERVISOR STMA Bicarbonate, P 26 22 - 29 mmol/L 09/20/2023 5:03 PM OPTICAL INSTRUMENTS SUPERVISOR STMA Anion Gap, P 8 7 - 15 09/20/2023 5:03 PM OPTICAL INSTRUMENTS SUPERVISOR STMA BUN (Blood Urea Nitrogen), P 28(H) 8 - 24 mg/dL 09/20/2023 5:03 PM OPTICAL INSTRUMENTS SUPERVISOR STMA Creatinine 2.24(H) 0.74 - 1.35 mg/dL 09/20/2023 5:03 PM OPTICAL INSTRUMENTS SUPERVISOR STMA Estimated GFR (eGFR) 31(L) >=60 mL/min/BSA 09/20/2023 5:03 PM OPTICAL INSTRUMENTS SUPERVISOR STMA Comment: Estimated GFR calculated using the 2020 CKD_EPI creatinine equation. Calcium, Total, P 9.0 8.8 - 10.2 mg/dL 09/20/2023 5:03 PM OPTICAL INSTRUMENTS SUPERVISOR STMA Glucose, P 193(H) 70 - 140 mg/dL 09/20/2023 5:03 PM OPTICAL INSTRUMENTS SUPERVISOR STMA Blood (Blood, Venous) 09/20/2023 4:27 PM OPTICAL INSTRUMENTS SUPERVISOR 09/20/2023 4:36 PM OPTICAL INSTRUMENTS SUPERVISOR Yenifer Mercado P.A.-C. LAB BLOOD ADD -ON [facility] [address] [place] [address], [facility] STMA [facility] [address] [place] [address] * (ABNORMAL) Glucose, POCT (09/20/2023 11:51 AM OPTICAL INSTRUMENTS SUPERVISOR) Pathologist [facility] Glucose, POCT, B 205(H) 70 - 140 mg/dL 09/20/2023 11:53 AM OPTICAL INSTRUMENTS SUPERVISOR PCLX Site ARTLINE 09/20/2023 11:53 AM OPTICAL INSTRUMENTS SUPERVISOR PCLX Last Intake 1-2 hours 09/20/2023 11:53 AM OPTICAL INSTRUMENTS SUPERVISOR PCLX Blood 09/20/2023 11:5 1 AM OPTICAL INSTRUMENTS SUPERVISOR 09/20/2023 11:53 AM OPTICAL INSTRUMENTS SUPERVISOR Unknown Provider LAB POCT ORDERABLES- MANUAL POC [facility] [address] [place] [address], [facility] PCLX [facility] POC [address] [place] [address] * (ABNORMAL) Basic Metabolic Panel (09/20/2023 11:51 AM OPTICAL INSTRUMENTS SUPERVISOR) Potassium, P 5.4(H) 3.6 - 5.2 mmol/L 09/20/2023 12:20 PM OPTICAL INSTRUMENTS SUPERVISOR STMA Sodium, P 137 135 - 145 mmol/L 09/20/2023 12:20 PM OPTICAL INSTRUMENTS SUPERVISOR STMA Chloride, P 103 98 - 107 mmol/L 09/20/2023 12:20 PM OPTICAL INSTRUMENTS SUPERVISOR STMA Bicarbonate, P 23 22 - 29 mmol/L 09/20/2023 12:20 PM OPTICAL INSTRUMENTS SUPERVISOR STMA Anion Gap, P 11 7 - 15 09/20/2023 12:20 PM OPTICAL INSTRUMENTS SUPERVISOR STMA BUN (Blood Urea Nitrogen), P 27(H) 8 - 24 mg/dL 09/20/2023 12:20 PM OPTICAL INSTRUMENTS SUPERVISOR STMA Creatinine 2.12(H) 0.74 - 1.35 mg/dL 09/20/2023 12:20 PM OPTICAL INSTRUMENTS SUPERVISOR STMA Estimated GFR (eGFR) 33(L) >=60 mL/min/BSA 09/20/2023 12:20 PM OPTICAL INSTRUMENTS SUPERVISOR STMA Comment: Estimated GFR calculated using the 2020 CKD_EPI creatinine equation. Calcium, Total, P 9.2 8.8 - 10.2 mg/dL 09/20/2023 12:20 PM OPTICAL INSTRUMENTS SUPERVISOR STMA Glucose, P 230(H) 70 - 140 mg/dL 09/20/2023 12:20 PM OPTICAL INSTRUMENTS SUPERVISOR STMA Blood (Blood, Venous) 09/20/2023 11:51 AM OPTICAL INSTRUMENTS SUPERVISOR 09/20/2023 12:00 PM OPTICAL INSTRUMENTS SUPERVISOR Lobito Melgar APRN, C.N.P., M.S.N. L AB BLOOD ADD-ON [facility] [address] [place] [address], [facility] STMA [facility] [address] [place] [address] * (ABNORMAL) Glucose, POCT (09/20/2023 6:30 AM OPTICAL INSTRUMENTS SUPERVISOR) Glucose, POCT, B 169(H) 70 - 140 mg/dL 09/20/2023 6:32 AM OPTICAL INSTRUMENTS SUPERVISOR PCLX Blood 09/20/2023 6:30 AM OPTICAL INSTRUMENTS SUPERVISOR 09/20/2023 6:33 AM OPTICAL INSTRUMENTS SUPERVISOR Unknown Provider LAB POCT ORDERABLES- MANUAL POC [facility] [address] [place] [address], [facility] PCLX [facility] POC [address] [place] [address] * Lactate, Whole Blood (09/20/2023 4:11 AM OPTICAL INSTRUMENTS SUPERVISOR) Pathologist [facility] Lactate, B 1.5 0.5 - 2.2 mmol/L 09/20/2023 4:18 AM OPTICAL INSTRUMENTS SUPERVISOR STMA Blood (Blood, Arterial) 09/20/2023 4:11 AM OPTICAL INSTRUMENTS SUPERVISOR 09/20/2023 4:15 AM OPTICAL INSTRUMENTS SUPERVISOR Lobito Melgar APRN C.N.P., M.S.N. L AB BLOOD NON ADD-ON [facility] [address] [place], [place] [id number] [place] [address] STMA [facility] [address] [place] [address] * Patient Status (09/20/2023 4:11 AM OPTICAL INSTRUMENTS SUPERVISOR) Pathologist [facility] O2 Flow 2.0 L/min 09/20/2023 4:15 AM OPTICAL INSTRUMENTS SUPERVISOR STMA Device NC 09/20/2023 4:15 AM OPTICAL INSTRUMENTS SUPERVISOR STMA Spont. breaths/min 14 09/20/2023 4:15 AM OPTICAL INSTRUMENTS SUPERVISOR STMA Blood 09/20/2023 4:11 AM OPTICAL INSTRUMENTS SUPERVISOR 09/20/2023 4:15 AM OPTICAL INSTRUMENTS SUPERVISOR Jenny Jay, B.Ch., B.A.O. LAB BLOOD NON ADD-ON [facility] [address] [place] [address], [facility] STMA [facility] [address] [place] [address] * (ABNORMAL) Blood Gas without Coox, Arterial (09/20/2023 4:11 AM OPTICAL INSTRUMENTS SUPERVISOR) Pathologist [facility] pO2 79(L) 83 - 108 mm Hg 09/20/2023 4:18 AM OPTICAL INSTRUMENTS SUPERVISOR STMA pCO2 43 35 - 48 mm Hg 09/20/2023 4:18 AM OPTICAL INSTRUMENTS SUPERVISOR STMA pH 7.37 7.35 - 7.45 pH 09/20/2023 4:18 AM OPTICAL INSTRUMENTS SUPERVISOR STMA Base Excess 0 -2 - 3 mmol/L 09/20/2023 4:18 AM OPTICAL INSTRUMENTS SUPERVISOR STMA HCO3 25 22 - 26 mmol/L 09/20/2023 4:18 AM OPTICAL INSTRUMENTS SUPERVISOR STMA Arterial Sample Site Art Line 09/20/2023 4:18 AM OPTICAL INSTRUMENTS SUPERVISOR STMA Comment:Mina's test not don e. Blood (Blood, Arterial) 09/20/2023 4:11 AM OPTICAL INSTRUMENTS SUPERVISOR 09/20/2023 4:15 AM OPTICAL INSTRUMENTS SUPERVISOR Jenny Jay, B.Ch., B.A.O. LAB BLOOD NON ADD-ON [facility] [address] [place] [address], [facility] [address] [place] [address] * (ABNORMAL) CBC without Differential (09/20/2023 4:09 AM OPTICAL INSTRUMENTS SUPERVISOR) Pathologist [facility] Hemoglobin 9.1(L) 13.2 - 16.6 g/dL 09/20/2023 4:51 AM OPTICAL INSTRUMENTS SUPERVISOR DTL Hematocrit 25.8(L) 38.3 - 48.6 % 09/20/2023 4:51 AM OPTICAL INSTRUMENTS SUPERVISOR DTL Erythrocytes 2.99(L) 4.35 - 5.65 x10(12)/L 09/20/2023 4:51 AM OPTICAL INSTRUMENTS SUPERVISOR DTL MCV 86.3 78.2 - 97.9 fL 09/20/2023 4:51 AM OPTICAL INSTRUMENTS SUPERVISOR DTL RBC Distrib Width 13.6 11.8 - 14.5 % 09/20/2023 4:51 AM OPTICAL INSTRUMENTS SUPERVISOR DTL Platelet Count 179 135 - 317 x10(9)/L 09/20/2023 4:51 AM OPTICAL INSTRUMENTS SUPERVISOR DTL Leukocytes 11.3(H) 3.4 - 9.6 x10(9)/L 09/20/2023 4:51 AM OPTICAL INSTRUMENTS SUPERVISOR DTL Blood (Blood, Venous) 09/20/2023 4:09 AM OPTICAL INSTRUMENTS SUPERVISOR 09/20/2023 4:42 AM OPTICAL INSTRUMENTS SUPERVISOR Raven BlackCh., B.A.O. LAB BLOOD ADD-ON [facility] [address] [place] [address], [facility] DTL [facility] [address] [place] [address] * (ABNORMAL) Basic Metabolic Panel (09/20/2023 4:09 AM OPTICAL INSTRUMENTS SUPERVISOR) Pathologist [facility] Potassium, S 5.2 3.6 - 5.2 mmol/L 09/20/2023 5:12 AM OPTICAL INSTRUMENTS SUPERVISOR DTL Sodium, S 142 135 - 145 mmol/L 09/20/2023 5:12 AM OPTICAL INSTRUMENTS SUPERVISOR DTL Chloride, S 107 98 - 107 mmol/L 09/20/2023 5:12 AM OPTICAL INSTRUMENTS SUPERVISOR DTL Bicarbonate, S 23 22 - 29 mmol/L 09/20/2023 5:12 AM OPTICAL INSTRUMENTS SUPERVISOR DTL Anion Gap 12 7 - 15 09/20/2023 5:12 AM OPTICAL INSTRUMENTS SUPERVISOR DTL BUN (Blood Urea Nitrogen), S 23 8 - 24 mg/dL 09/20/2023 5:12 AM OPTICAL INSTRUMENTS SUPERVISOR DTL Creatinine 1.88(H) 0.74 - 1.35 mg/dL 09/20/2023 5:12 AM OPTICAL INSTRUMENTS SUPERVISOR DTL Estimated GFR (eGFR) 38(L) >=60 mL/min/BSA 09/20/2023 5:12 AM OPTICAL INSTRUMENTS SUPERVISOR DTL Comment: Estimated GFR calculated using the 2020 CKD_EPI creatinine equation. Calcium, Total, S 9.6 8.8 - 10.2 mg/dL 09/20/2023 5:12 AM OPTICAL INSTRUMENTS SUPERVISOR DTL Glucose, S 162(H) 70 - 140 mg/dL 09/20/2023 5:12 AM OPTICAL INSTRUMENTS SUPERVISOR DTL Blood (Blood, Venous) 09/20/2023 4:09 AM OPTICAL INSTRUMENTS SUPERVISOR 09/20/2023 4:57 AM OPTICAL INSTRUMENTS SUPERVISOR Jenny Jay B.Ch., B.A.O. LAB BLOOD ADD-ON [facility] [address] [place], [place] [id number] [place] [address] [address] [place] [address] * APTT (Activated Partial Thromboplastin Time) (09/20/2023 4:09 AM OPTICAL INSTRUMENTS SUPERVISOR) Activated Partial Thrombopl Time, P 26 25 - 37 sec 09/20/2023 5:19 AM OPTICAL INSTRUMENTS SUPERVISOR DTL Blood (Blood, Venous) 09/20/2023 4:09 AM OPTICAL INSTRUMENTS SUPERVISOR 09/20/2023 4:43 AM OPTICAL INSTRUMENTS SUPERVISOR Jenny Jay, Nicky.Ch., B.A.O. LAB BLOOD ADD-ON [facility] [address] [place] [address] * Prothrombin Time (PT) (09/20/2023 4:09 AM OPTICAL INSTRUMENTS SUPERVISOR) Prothrombin Time, P 12.2 9.4 - 12.5 sec 09/20/2023 5:19 AM OPTICAL INSTRUMENTS SUPERVISOR DTL INR 1.1 0.9 - 1.1 09/20/2023 5:19 AM OPTICAL INSTRUMENTS SUPERVISOR DTL Comment: ----ADDITIONAL INFORMATION---- Standard intensity warfarin therapeutic range: 2.0 to 3.0 ?? High intensity warfarin therapeutic range: 2.5 to 3.5 Blood (Blood, Venous) 09/20/2023 4:09 AM OPTICAL INSTRUMENTS SUPERVISOR 09/20/2023 4:43 AM OPTICAL INSTRUMENTS SUPERVISOR Jenny Jay, Nicky.Ch., B.A.O. LAB BLOOD ADD-ON [facility] [address] [place], [place] [phone] [place] [address] * (ABNORMAL) Magnesium (09/20/2023 4:09 AM OPTICAL INSTRUMENTS SUPERVISOR) Magnesium, S 2.7(H) 1.7 - 2.3 mg/dL 09/20/2023 5:12 AM OPTICAL INSTRUMENTS SUPERVISOR DTL Blood (Blood, Venous) 09/20/2023 4:09 AM OPTICAL INSTRUMENTS SUPERVISOR 09/20/2023 4:57 AM OPTICAL INSTRUMENTS SUPERVISOR Jenny Jay, BKolby., B.A.O. LAB BLOOD ADD-ON [facility] [address] [place] [address], [place] [facility] [address] [place] [address] * DX Chest Portable with AM Rounds 1 View (09/20/2023 3:33 AM OPTICAL INSTRUMENTS SUPERVISOR) Anatomical Region Laterality Modality Chest, Thoracic RST LOS, Tho racic ARZ LOS, Thoracic FLA LOS N/A Digital Radiography 09/20/2023 5:18 AM OPTICAL INSTRUMENTS SUPERVISOR Impressions 09/20/2023 5:20 AM OPTICAL INSTRUMENTS SUPERVISOR Compared to 09/19/2023. Extubation. Removal of right IJ SGC, sheath remains. Slightly decreased lung volumes. No other significant change. Pulmonary vascular congestion. Bibasilar atelectasis. No definite pneumothorax. Trace pneumomediastinum. Enlarged cardiac silhouette. Retrocardiac atelectasis/consolidation. Azygous fissure. Sternotomy. Mediastinal clips and drains. Loop recorder. Narrative 09/20/2023 5:20 AM OPTICAL INSTRUMENTS SUPERVISOR EXAM: ??DX CHEST PORTABLE WITH AM ROUNDS [...] Mediastinal clips and drains. Loop recorder. Jenny Jay B.Ch., B.A.O. IMG DIAGNOSTIC IMAGING PROCEDURES * (ABNORMAL) Tissue Inhibitor of Metalloproteinase 2 (TIMP-2) and Insulin-like Growth Factor Binding Protein 7 (IGFBP-7) Risk Score, Random, Urine (09/20/2023 3:24 AM OPTICAL INSTRUMENTS SUPERVISOR) TIMP2/IGFBP7 MANJEET Risk Score, U 0.45(H) <0.30 (ng/mL)(2) /1000 09/20/2023 4:12 AM OPTICAL INSTRUMENTS SUPERVISOR [facility] Comment: ----ADDITIONAL INFORMATION---- <0.30= <0.30 is considered low risk for acute kidney injury. 0.30-2.00= 0.30-2.00 indicates increased risk for acute kidney injury. >2.00= >2.00 indicates high risk for acute kidney injury. Urine (Urine, Midstream) 09/20/2023 3:24 AM OPTICAL INSTRUMENTS SUPERVISOR 09/20/2023 3:24 AM OPTICAL INSTRUMENTS SUPERVISOR Jenny Jay B.Ch., B.A.O. LAB URINE ORDERABLES Performing Organization Address City/[facility] Co de Phone Number [place] [address] [place] [address], [facility] [address] [place] [address] * Glucose, POCT (09/20/2023 1:17 AM [employer] SUPERVISOR) Pathologist [facility] Glucose, POCT, B 136 70 - 140 mg/dL 09/20/2023 1:19 AM [employer] SUPERVISOR PCLX Site ARTLINE 09/20/2023 1:19 AM [employer] SUPERVISOR PCLX Blood 09/20/2023 1:17 AM [employer] SUPERVISOR 09/20/2023 1:19 AM [employer] SUPERVISOR Unknown Provider LAB POCT ORDERABLES- MANUAL Performing Organization Address City/State/[facility] Co de Phone Number POC [facility] [address] [place] [address], [facility] PCLX [facility] [address] [place] [address] * Glucose, POCT (09/19/2023 11:58 PM [employer] SUPERVISOR) Glucose, POCT, B 133 70 - 140 mg/dL 09/19/2023 11:59 PM [employer] SUPERVISOR PCLX Site ARTLINE 09/19/2023 11:59 PM [employer] SUPERVISOR PCLX Blood 09/19/2023 11:5 8 PM [employer] SUPERVISOR 09/19/2023 11:59 PM [employer] SUPERVISOR Unknown Provider LAB POCT ORDERABLES- MANUAL Performing Organization Address [facility] Co de Phone Number [facility] [address] [place] [address], [facility] PCLX [facility] POC [address] [place] [address] * (ABNORMAL) Glucose, POCT (09/19/2023 11:20 PM [employer] SUPERVISOR) Glucose, POCT, B 148(H) 70 - 140 mg/dL 09/19/2023 11:22 PM [employer] SUPERVISOR PCLX Site ARTLINE 09/19/2023 11:22 PM [employer] SUPERVISOR PCLX Blood 09/19/2023 11:2 0 PM [employer] SUPERVISOR 09/19/2023 11:22 PM [employer] SUPERVISOR Unknown Provider LAB POCT ORDERABLES- MANUAL Performing Organization Address City/[facility] Co de Phone Number POC [facility] [address] [place] [address], [place] [facility] POC [address] [place] [address] * (ABNORMAL) Lactate, Whole Blood (09/19/2023 10:58 PM OPTICAL INSTRUMENTS SUPERVISOR) Lactate, B 2.6(H) 0.5 - 2.2 mmol/L 09/19/2023 11:05 PM OPTICAL INSTRUMENTS SUPERVISOR STMA Blood (Blood, Arterial) 09/19/2023 10:58 PM OPTICAL INSTRUMENTS SUPERVISOR 09/19/2023 11:04 PM OPTICAL INSTRUMENTS SUPERVISOR Radha Encarnacion APRNNGrant., M.S.N. L AB BLOOD NON ADD-ON [facility] [address] [place] [address], [facility] STMA [facility] [address] [place] [address] * (ABNORMAL) Glucose, POCT (09/19/2023 10:27 PM OPTICAL INSTRUMENTS SUPERVISOR) Pathologist [facility] Glucose, POCT, B 160(H) 70 - 140 mg/dL 09/19/2023 10:30 PM OPTICAL INSTRUMENTS SUPERVISOR PCLX Site ARTLINE 09/19/2023 10:30 PM OPTICAL INSTRUMENTS SUPERVISOR PCLX Blood 09/19/2023 10:2 7 PM OPTICAL INSTRUMENTS SUPERVISOR 09/19/2023 10:30 PM OPTICAL INSTRUMENTS SUPERVISOR Unknown Provider LAB POCT ORDERABLES- MANUAL Performing Organization Address City/[facility] Co de Phone Number POC [facility] [address] [place] [address], [facility] P[facility] [address] [place] [address] * (ABNORMAL) Glucose, POCT (09/19/2023 9:24 PM OPTICAL INSTRUMENTS SUPERVISOR) Pathologist [facility] Glucose, POCT, B 194(H) 70 - 140 mg/dL 09/19/2023 9:25 PM OPTICAL INSTRUMENTS SUPERVISOR PCLX Site ARTLINE 09/19/2023 9:25 PM OPTICAL INSTRUMENTS SUPERVISOR PCLX Blood 09/19/2023 9:24 PM OPTICAL INSTRUMENTS SUPERVISOR 09/19/2023 9:25 PM OPTICAL INSTRUMENTS SUPERVISOR Unknown Provider LAB POCT ORDERABLES- MANUAL Performing Organization Address City/[facility]/ZIP Co de Phone Number [facility] [address] [place] [address], [facility] P[facility] [address] [place] [address] * ECG 12 Lead (09/19/2023 8:14 PM OPTICAL INSTRUMENTS SUPERVISOR) Pathologist [facility] Ventricular Rate ECG/Min 93 BPM MUSE ME Interval 134 ms MUSE QRSD Interval 84 ms MUSE QT Interval 374 ms MUSE QTC Interval 465 ms MUSE P Radford 74 degrees MUSE R Radford 14 degrees MUSE T Wave Radford 58 degrees MUSE 09/19/2023 8:14 PM OPTICAL INSTRUMENTS SUPERVISOR 09/19/2023 8:36 PM OPTICAL INSTRUMENTS SUPERVISOR Impressions MUSE - 09/19/2023 8:36 PM OPTICAL INSTRUMENTS SUPERVISOR Normal sinus rhythm Nonspecific ST and T wave abnormality When compared with ECG of 19-AUG-2023 15:24, No significant change was found Reviewed by MARIELA Dietz Narrative Procedure Note Joe Kumar Jr., M.D. - 09/19/2023 IMPRESSION: Normal sinus rhythm Nonspecific ST and T wave abnormality When compared with ECG of 19-AUG-2023 15:24, No significant change was found Reviewed by MARIELA Dietz Jenny Jay, B.Ch., B.A.O. ECG ORDERABLES Performing Organization Address City/[facility]/ZIP Co de Phone Number MUSE NA * (ABNORMAL) Glucose, POCT (09/19/2023 7:58 PM OPTICAL INSTRUMENTS SUPERVISOR) Pathologist [facility] Glucose, POCT, B 226(H) 70 - 140 mg/dL 09/19/2023 8:00 PM OPTICAL INSTRUMENTS SUPERVISOR PCLX Site ARTLINE 09/19/2023 8:00 PM OPTICAL INSTRUMENTS SUPERVISOR PCLX Blood 09/19/2023 7:58 PM OPTICAL INSTRUMENTS SUPERVISOR 09/19/2023 8:00 PM OPTICAL INSTRUMENTS SUPERVISOR Unknown Provider LAB POCT ORDERABLES- MANUAL POC [facility] [address] [place] [address], [facility]CL[facility] POC [address] [place] [address] * (ABNORMAL) Lactate, Whole Blood (09/19/2023 7:43 PM OPTICAL INSTRUMENTS SUPERVISOR) Lactate, B 6.6(H) 0.5 - 2.2 mmol/L 09/19/2023 7:50 PM OPTICAL INSTRUMENTS SUPERVISOR STMA Blood (Blood, Arterial) 09/19/2023 7:43 PM OPTICAL INSTRUMENTS SUPERVISOR 09/19/2023 7:49 PM OPTICAL INSTRUMENTS SUPERVISOR Radha Encarnacion APRNNGrant., M.S.N. L AB BLOOD NON ADD-ON [facility] [address] [place] [address], [facility] [address] [place] [address] * Patient Status (09/19/2023 7:43 PM OPTICAL INSTRUMENTS SUPERVISOR) O2 Flow 5.0L L/min 09/19/2023 7:49 PM OPTICAL INSTRUMENTS SUPERVISOR STMA Device NC 09/19/2023 7:49 PM OPTICAL INSTRUMENTS SUPERVISOR STMA Spont. breaths/min 21 09/19/2023 7:49 PM OPTICAL INSTRUMENTS SUPERVISOR STMA Blood 09/19/2023 7:43 PM OPTICAL INSTRUMENTS SUPERVISOR 09/19/2023 7:49 PM OPTICAL INSTRUMENTS SUPERVISOR Susu Fajardo LAB BLOOD NON ADD-ON Performing Organization Address City/[facility] Co de Phone Number [facility] [address] [place] [address], [facility] [address] [place] [address] * (ABNORMAL) Lactate (09/19/2023 7:43 PM OPTICAL INSTRUMENTS SUPERVISOR) Lactate, P 7.0(H) 0.5 - 2.2 mmol/L 09/19/2023 8:04 PM OPTICAL INSTRUMENTS SUPERVISOR STMA Blood (Blood, Venous) 09/19/2023 7:43 PM OPTICAL INSTRUMENTS SUPERVISOR 09/19/2023 7:49 PM OPTICAL INSTRUMENTS SUPERVISOR Susu R Conyer LAB BLOOD NON ADD-ON Performing Organization Address City/[facility]/ZIP Co de Phone Number [facility] [address] [place] [address], [facility] [address] [place] [address] * (ABNORMAL) Blood Gas with Coox, Arterial (09/19/2023 7:43 PM OPTICAL INSTRUMENTS SUPERVISOR) pO2 157(H) 83 - 108 mm Hg 09/19/2023 7:50 PM OPTICAL INSTRUMENTS SUPERVISOR STMA pCO2 42 35 - 48 mm Hg 09/19/2023 7:50 PM OPTICAL INSTRUMENTS SUPERVISOR STMA pH 7.25(L) 7.35 - 7.45 pH 09/19/2023 7:50 PM OPTICAL INSTRUMENTS SUPERVISOR STMA Base Excess -9(L) -2 - 3 mmol/L 09/19/2023 7:50 PM OPTICAL INSTRUMENTS SUPERVISOR STMA HCO3 19(L) 22 - 26 mmol/L 09/19/2023 7:50 PM OPTICAL INSTRUMENTS SUPERVISOR STMA Hemoglobin, Venous 10.1(L) 13.2 - 16.6 g/dL 09/19/2023 7:50 PM OPTICAL INSTRUMENTS SUPERVISOR STMA O2Hb 97.3 94.0 - 98.0 % 09/19/2023 7:50 PM OPTICAL INSTRUMENTS SUPERVISOR STMA COHb 2.0 <3.0 % 09/19/2023 7:50 PM OPTICAL INSTRUMENTS SUPERVISOR STMA MetHb 1.0 <1.5 % 09/19/2023 7:50 PM OPTICAL INSTRUMENTS SUPERVISOR STMA CtO2 14.1(L) 18.0 - 21.0 vol % 09/19/2023 7:50 PM OPTICAL INSTRUMENTS SUPERVISOR STMA Arterial Sample Site Art Line 09/19/2023 7:50 PM OPTICAL INSTRUMENTS SUPERVISOR STMA Comment:Mina's test not don e. Blood (Blood, Arterial) 09/19/2023 7:43 PM OPTICAL INSTRUMENTS SUPERVISOR 09/19/2023 7:49 PM OPTICAL INSTRUMENTS SUPERVISOR Susu Fajardo LAB BLOOD NON ADD-ON [facility] [address] [place] [address], [facility] [address] [place] [address] * (ABNORMAL) Glucose, POCT (09/19/2023 6:57 PM OPTICAL INSTRUMENTS SUPERVISOR) Glucose, POCT, B 224(H) 70 - 140 mg/dL 09/19/2023 7:00 PM OPTICAL INSTRUMENTS SUPERVISOR PCLX Site ARTLINE 09/19/2023 7:00 PM OPTICAL INSTRUMENTS SUPERVISOR PCLX Blood 09/19/2023 6:57 PM OPTICAL INSTRUMENTS SUPERVISOR 09/19/2023 7:00 PM OPTICAL INSTRUMENTS SUPERVISOR Unknown Provider LAB POCT ORDERABLES- MANUAL Performing Organization Address City/[facility]/ZIP Co de Phone Number POC [facility] [address] [place] [address], [facility] P[facility] [address] [place] [address] * (ABNORMAL) Glucose, POCT (09/19/2023 6:23 PM OPTICAL INSTRUMENTS SUPERVISOR) Glucose, POCT, B 217(H) 70 - 140 mg/dL 09/19/2023 6:24 PM OPTICAL INSTRUMENTS SUPERVISOR PCLX Site ARTLINE 09/19/2023 6:24 PM OPTICAL INSTRUMENTS SUPERVISOR PCLX Blood 09/19/2023 6:23 PM OPTICAL INSTRUMENTS SUPERVISOR 09/19/2023 6:25 PM OPTICAL INSTRUMENTS SUPERVISOR Unknown Provider LAB POCT ORDERABLES- MANUAL Performing Organization Address City/[facility]/ZIP Co de Phone Number POC [facility] [address] [place] [address], [facility] P[facility] [address] [place] [address] * DX Chest Portable 1 View (09/19/2023 5:45 PM OPTICAL INSTRUMENTS SUPERVISOR) Anatomical Region Laterality Modality Chest, Thoracic RST LOS, Tho racic ARZ LOS, Thoracic FLA LOS N/A Digital Radiography 09/19/2023 7:33 PM OPTICAL INSTRUMENTS SUPERVISOR Impressions 09/19/2023 8:26 PM OPTICAL INSTRUMENTS SUPERVISOR Interval retraction of the endotracheal tube, with tip now in the mid thoracic trachea. Otherwise no significant changes since 2:23 PM. Right IJ Masterson-Sepideh catheter with tip in the main pulmonary artery. Sternotomy wires and mediastinal surgical clips. Aortic valve replacement. Mediastinal drains. Mild bilateral interstitial thickening and perihilar opacities. No definite pleural effusion. Aortic calcifications. Narrative 09/19/2023 8:26 PM OPTICAL INSTRUMENTS SUPERVISOR EXAM: ??DX CHEST PORTABLE 1 VIEW Procedure [...] No definitepleural effusion. Aortic calcifications. Jenny Jay, Lucille, B.A.O. IMG DIAGNOSTIC IMAGING PROCEDURES * Transfuse Platelets : (09/19/2023 5:19 PM OPTICAL INSTRUMENTS SUPERVISOR) Radha Iqbal M.D. BLOOD TRANSFUSION OR DERABLES * Patient Status (09/19/2023 5:19 PM OPTICAL INSTRUMENTS SUPERVISOR) Pathologist [facility] FIO2 0.50 0.21=AIR 09/19/2023 5:22 PM OPTICAL INSTRUMENTS SUPERVISOR STMA Device Vent 09/19/2023 5:22 PM OPTICAL INSTRUMENTS SUPERVISOR STMA Spont. breaths/min 21 09/19/2023 5:22 PM OPTICAL INSTRUMENTS SUPERVISOR STMA Blood 09/19/2023 5:19 PM OPTICAL INSTRUMENTS SUPERVISOR 09/19/2023 5:22 PM OPTICAL INSTRUMENTS SUPERVISOR Jenny Jay, Lucille, B.A.O. LAB BLOOD NON ADD-ON [facility] [address] [place] [address], [facility] [address] [place] [address] * Fibrinogen (09/19/2023 5:19 PM OPTICAL INSTRUMENTS SUPERVISOR) Pathologist [facility] Fibrinogen, P 269 200 - 393 mg/dL 09/19/2023 5:30 PM OPTICAL INSTRUMENTS SUPERVISOR STMA Blood (Blood, Venous) 09/19/2023 5:19 PM OPTICAL INSTRUMENTS SUPERVISOR 09/19/2023 5:22 PM OPTICAL INSTRUMENTS SUPERVISOR Raven BlackCh., B.A.O. LAB BLOOD ADD-ON [facility] [address] [place] [address], [facility] [address] [place] [address] * Prothrombin Time (PT) (09/19/2023 5:19 PM OPTICAL INSTRUMENTS SUPERVISOR) Prothrombin Time, P 12.4 9.4 - 12.5 sec 09/19/2023 5:30 PM OPTICAL INSTRUMENTS SUPERVISOR [facility] 0.9 - 1.1 09/19/2023 5:30 PM OPTICAL INSTRUMENTS SUPERVISOR [facility] Comment: ----ADDITIONAL INFORMATION---- Standard intensity warfarin therapeutic range: 2.0 to 3.0 ?? High intensity warfarin therapeutic range: 2.5 to 3.5 Blood (Blood, Venous) 09/19/2023 5:19 PM OPTICAL INSTRUMENTS SUPERVISOR 09/19/2023 5:22 PM OPTICAL INSTRUMENTS SUPERVISOR Raven BlackCh., B.A.O. LAB BLOOD ADD-ON Performing Organization Address City/[facility]/ZIP Co de Phone Number [facility] [address] [place] [address], [facility] [address] [place] [address] * APTT (Activated Partial Thromboplastin Time) (09/19/2023 5:19 PM OPTICAL INSTRUMENTS SUPERVISOR) Activated Partial Thrombopl Time, P 31 25 - 37 sec 09/19/2023 5:32 PM OPTICAL INSTRUMENTS SUPERVISOR [facility] Blood (Blood, Venous) 09/19/2023 5:19 PM OPTICAL INSTRUMENTS SUPERVISOR 09/19/2023 5:22 PM OPTICAL INSTRUMENTS SUPERVISOR Nicky Black.Ch., B.A.O. LAB BLOOD ADD-ON [facility] [address] [place] [address], [facility] [address] [place] [address] * (ABNORMAL) CBC without Differential (09/19/2023 5:19 PM OPTICAL INSTRUMENTS SUPERVISOR) [facility] Hemoglobin 9.5(L) 13.2 - 16.6 g/dL 09/19/2023 5:24 PM OPTICAL INSTRUMENTS SUPERVISOR STMA Hematocrit 27.5(L) 38.3 - 48.6 % 09/19/2023 5:24 PM OPTICAL INSTRUMENTS SUPERVISOR STMA Erythrocytes 3.14(L) 4.35 - 5.65 x10(12)/L 09/19/2023 5:24 PM OPTICAL INSTRUMENTS SUPERVISOR STMA MCV 87.6 78.2 - 97.9 fL 09/19/2023 5:24 PM OPTICAL INSTRUMENTS SUPERVISOR STMA RBC Distrib Width 13.3 11.8 - 14.5 % 09/19/2023 5:24 PM OPTICAL INSTRUMENTS SUPERVISOR STMA Platelet Count 163 135 - 317 x10(9)/L 09/19/2023 5:24 PM OPTICAL INSTRUMENTS SUPERVISOR STMA Leukocytes 13.3(H) 3.4 - 9.6 x10(9)/L 09/19/2023 5:24 PM OPTICAL INSTRUMENTS SUPERVISOR STMA Blood (Blood, Venous) 09/19/2023 5:19 PM OPTICAL INSTRUMENTS SUPERVISOR 09/19/2023 5:22 PM OPTICAL INSTRUMENTS SUPERVISOR Jenny Jay, B.Ch., B.A.O. LAB BLOOD ADD-ON [facility] [address] [place], [place] [address] [address] [place] [address] * (ABNORMAL) Lactate, Whole Blood (09/19/2023 5:19 PM OPTICAL INSTRUMENTS SUPERVISOR) [facility] Lactate, B 2.9(H) 0.5 - 2.2 mmol/L 09/19/2023 5:27 PM OPTICAL INSTRUMENTS SUPERVISOR STMA Blood (Blood, Arterial) 09/19/2023 5:19 PM OPTICAL INSTRUMENTS SUPERVISOR 09/19/2023 5:22 PM OPTICAL INSTRUMENTS SUPERVISOR Jenny Jay, RavenCh., B.A.O. LAB BLOOD NON ADD-ON [facility] [address] [place] [address], [place] STMA [facility] [address] [place] [address] * (ABNORMAL) Blood Gas with Coox, Arterial (09/19/2023 5:19 PM OPTICAL INSTRUMENTS SUPERVISOR) pO2 192(H) 83 - 108 mm Hg 09/19/2023 5:27 PM OPTICAL INSTRUMENTS SUPERVISOR STMA pCO2 36 35 - 48 mm Hg 09/19/2023 5:27 PM OPTICAL INSTRUMENTS SUPERVISOR STMA pH 7.37 7.35 - 7.45 pH 09/19/2023 5:27 PM OPTICAL INSTRUMENTS SUPERVISOR STMA Base Excess -4(L) -2 - 3 mmol/L 09/19/2023 5:27 PM OPTICAL INSTRUMENTS SUPERVISOR STMA HCO3 20(L) 22 - 26 mmol/L 09/19/2023 5:27 PM OPTICAL INSTRUMENTS SUPERVISOR STMA Hemoglobin, Venous 9.9(L) 13.2 - 16.6 g/dL 09/19/2023 5:27 PM OPTICAL INSTRUMENTS SUPERVISOR STMA O2Hb 95.6 94.0 - 98.0 % 09/19/2023 5:27 PM OPTICAL INSTRUMENTS SUPERVISOR STMA COHb 1.1 <3.0 % 09/19/2023 5:27 PM OPTICAL INSTRUMENTS SUPERVISOR STMA MetHb 2.2(H) <1.5 % 09/19/2023 5:27 PM OPTICAL INSTRUMENTS SUPERVISOR STMA CtO2 13.7(L) 18.0 - 21.0 vol % 09/19/2023 5:27 PM OPTICAL INSTRUMENTS SUPERVISOR STMA Arterial Sample Site Art Line 09/19/2023 5:27 PM OPTICAL INSTRUMENTS SUPERVISOR STMA Comment:Mina's test not don e. Blood (Blood, Arterial) 09/19/2023 5:19 PM OPTICAL INSTRUMENTS SUPERVISOR 09/19/2023 5:22 PM OPTICAL INSTRUMENTS SUPERVISOR Jenny Jay, Nicky.Ch., B.A.O. LAB BLOOD NON ADD-ON [facility] [address] [place] [address], [facility] STMA [facility] [address] [place] [address] * (ABNORMAL) Basic Metabolic Panel (09/19/2023 5:19 PM OPTICAL INSTRUMENTS SUPERVISOR) Pathologist [facility] Potassium, P 4.6 3.6 - 5.2 mmol/L 09/19/2023 5:38 PM OPTICAL INSTRUMENTS SUPERVISOR STMA Sodium, P 140 135 - 145 mmol/L 09/19/2023 5:38 PM OPTICAL INSTRUMENTS SUPERVISOR STMA Chloride, P 107 98 - 107 mmol/L 09/19/2023 5:38 PM OPTICAL INSTRUMENTS SUPERVISOR STMA Bicarbonate, P 20(L) 22 - 29 mmol/L 09/19/2023 5:38 PM OPTICAL INSTRUMENTS SUPERVISOR STMA Anion Gap, P 13 7 - 15 09/19/2023 5:38 PM OPTICAL INSTRUMENTS SUPERVISOR STMA BUN (Blood Urea Nitrogen), P 19 8 - 24 mg/dL 09/19/2023 5:38 PM OPTICAL INSTRUMENTS SUPERVISOR STMA Creatinine 1.39(H) 0.74 - 1.35 mg/dL 09/19/2023 5:38 PM OPTICAL INSTRUMENTS SUPERVISOR STMA Estimated GFR (eGFR) 54(L) >=60 mL/min/BSA 09/19/2023 5:38 PM OPTICAL INSTRUMENTS SUPERVISOR STMA Comment: Estimated GFR calculated using the 2020 CKD_EPI creatinine equation. Calcium, Total, P 10.7(H) 8.8 - 10.2 mg/dL 09/19/2023 5:38 PM OPTICAL INSTRUMENTS SUPERVISOR STMA Glucose, P 201(H) 70 - 140 mg/dL 09/19/2023 5:38 PM OPTICAL INSTRUMENTS SUPERVISOR STMA Blood (Blood, Venous) 09/19/2023 5:19 PM OPTICAL INSTRUMENTS SUPERVISOR 09/19/2023 5:22 PM OPTICAL INSTRUMENTS SUPERVISOR Jenny Jay, B.Ch., B.A.O. LAB BLOOD ADD-ON [facility] [address] [place] [address], [facility] STMA [facility] [address] [place] [address] * (ABNORMAL) Cystatin C with Estimated GFR (09/19/2023 5:19 PM OPTICAL INSTRUMENTS SUPERVISOR) eGFR by Cystatin C 59(L) >60 mL/min/BSA 09/19/2023 8:00 PM OPTICAL INSTRUMENTS SUPERVISOR DTL Comment: Estimated GFR calculated using the [...] 0.67 - 1.21 mg/L 09/19/2023 8:00 PM OPTICAL INSTRUMENTS SUPERVISOR DTL Blood (Blood, Arterial Line) 09/19/2023 5:19 PM OPTICAL INSTRUMENTS SUPERVISOR 09/19/2023 5:53 PM OPTICAL INSTRUMENTS SUPERVISOR Zoraida Salmeron M.D., Ph.D. LAB BLOOD AD D-ON Performing Organization Address City/[facility]/ZIP Co de Phone Number [facility] [address] DTL [facility] [address] [place] [address] * (ABNORMAL) Platelet Count (09/19/2023 4:20 PM OPTICAL INSTRUMENTS SUPERVISOR) Pathologist [facility] Platelet Count 94(L) 135 - 317 x10(9)/L 09/19/2023 4:27 PM OPTICAL INSTRUMENTS SUPERVISOR STMA Blood (Blood, Arterial Line) 09/19/2023 4:20 PM OPTICAL INSTRUMENTS SUPERVISOR 09/19/2023 4:20 PM OPTICAL INSTRUMENTS SUPERVISOR Rowena Antonio M.D. LAB BLOOD ADD-O N Performing Organization Address City/[facility]/ZIP Co de Phone Number [facility] [address] STMA [facility] [address] [place] [address] * Prothrombin Time (PT) (09/19/2023 4:20 PM OPTICAL INSTRUMENTS SUPERVISOR) Pathologist [facility] Prothrombin Time, P 12.3 9.4 - 12.5 sec 09/19/2023 4:32 PM OPTICAL INSTRUMENTS SUPERVISOR [facility] 1.1 0.9 - 1.1 09/19/2023 4:32 PM OPTICAL INSTRUMENTS SUPERVISOR [facility] Comment: ----ADDITIONAL INFORMATION---- Standard intensity warfarin therapeutic range: 2.0 to 3.0 ?? High intensity warfarin therapeutic range: 2.5 to 3.5 Blood (Blood, Arterial Line) 09/19/2023 4:20 PM OPTICAL INSTRUMENTS SUPERVISOR 09/19/2023 4:20 PM OPTICAL INSTRUMENTS SUPERVISOR Rowena Antonio M.D. LAB BLOOD ADD-O N Performing Organization Address City/[facility]/ZIP Co de Phone Number [facility] [address] [place] [address] * Fibrinogen (09/19/2023 4:20 PM OPTICAL INSTRUMENTS SUPERVISOR) [facility] Fibrinogen, P 246 200 - 393 mg/dL 09/19/2023 4:32 PM OPTICAL INSTRUMENTS SUPERVISOR [facility] Blood (Blood, Arterial Line) 09/19/2023 4:20 PM OPTICAL INSTRUMENTS SUPERVISOR 09/19/2023 4:20 PM OPTICAL INSTRUMENTS SUPERVISOR Rowena Antonio M.D. LAB BLOOD ADD-O N Performing Organization Address City/[facility]/ZIP Co de Phone Number [facility] [address] [place] [address], [facility] [address] [place] [address] * APTT (Activated Partial Thromboplastin Time) (09/19/2023 4:20 PM OPTICAL INSTRUMENTS SUPERVISOR) [facility] Activated Partial Thrombopl Time, P 32 25 - 37 sec 09/19/2023 4:34 PM OPTICAL INSTRUMENTS SUPERVISOR [facility] Blood (Blood, Arterial Line) 09/19/2023 4:20 PM OPTICAL INSTRUMENTS SUPERVISOR 09/19/2023 4:20 PM OPTICAL INSTRUMENTS SUPERVISOR oRwena Antonio M.D. LAB BLOOD ADD-O N Performing Organization Address [facility] Co de Phone Number [facility] [address] [place] [address], [facility] [address] [place] [address] * (ABNORMAL) Lactate, B - Intra-op (09/19/2023 4:20 PM OPTICAL INSTRUMENTS SUPERVISOR) Lactate, B 2.9(H) 0.5 - 2.2 mmol/L 09/19/2023 4:23 PM OPTICAL INSTRUMENTS SUPERVISOR [facility] Blood (Blood, Venous) 09/19/2023 4:20 PM OPTICAL INSTRUMENTS SUPERVISOR 09/19/2023 4:20 PM OPTICAL INSTRUMENTS SUPERVISOR Rowena Antonio M.D. LAB BLOOD NON A DD-ON Performing Organization Address [facility] Co de Phone Number [facility] [address] [place] [address], [facility] [address] [place] [address] * (ABNORMAL) Glucose, Whole Blood (09/19/2023 4:20 PM OPTICAL INSTRUMENTS SUPERVISOR) Glucose 152(H) 70 - 140 mg/dL 09/19/2023 4:23 PM OPTICAL INSTRUMENTS SUPERVISOR [facility] Blood (Blood, Arterial Line) 09/19/2023 4:20 PM OPTICAL INSTRUMENTS SUPERVISOR 09/19/2023 4:20 PM OPTICAL INSTRUMENTS SUPERVISOR Rowena Antonio M.D. LAB BLOOD ADD-O N Performing Organization Address [facility] Co de Phone Number [facility] [address] [place] [address], [facility] [address] [place] [address] * Potassium, Blood (09/19/2023 4:20 PM OPTICAL INSTRUMENTS SUPERVISOR) Potassium, B 4.7 3.6 - 5.2 mmol/L 09/19/2023 4:23 PM OPTICAL INSTRUMENTS SUPERVISOR STMA Blood (Blood, Arterial Line) 09/19/2023 4:20 PM OPTICAL INSTRUMENTS SUPERVISOR 09/19/2023 4:20 PM OPTICAL INSTRUMENTS SUPERVISOR Rowena Antonio M.D. LAB BLOOD NON A DD-ON Performing Organization Address City/[facility]/ZIP Co de Phone Number [facility] [address] [place] [place] [address] [place] [address] [address] [place] [address] * Sodium, B (09/19/2023 4:20 PM OPTICAL INSTRUMENTS SUPERVISOR) Sodium, B 139 135 - 145 mmol/L 09/19/2023 4:23 PM OPTICAL INSTRUMENTS SUPERVISOR STMA Blood (Blood, Arterial Line) 09/19/2023 4:20 PM OPTICAL INSTRUMENTS SUPERVISOR 09/19/2023 4:20 PM OPTICAL INSTRUMENTS SUPERVISOR Rowena Antonio M.D. LAB BLOOD NON A DD-ON Performing Organization Address City/[facility] Co de Phone Number [facility] [address] [place] [address], [facility] [address] [place] [address] * Calcium, Ionized (09/19/2023 4:20 PM OPTICAL INSTRUMENTS SUPERVISOR) Calcium, Ionized, B 5.02 4.65 - 5.30 mg/dL 09/19/2023 4:23 PM OPTICAL INSTRUMENTS SUPERVISOR STMA Blood (Blood, Arterial Line) 09/19/2023 4:20 PM OPTICAL INSTRUMENTS SUPERVISOR 09/19/2023 4:20 PM OPTICAL INSTRUMENTS SUPERVISOR Rowena Antonio M.D. LAB BLOOD NON A DD-ON [facility] [address] [place] [address], [facility] [address] [place] [address] * (ABNORMAL) Blood Gas with Coox, Arterial (09/19/2023 4:20 PM OPTICAL INSTRUMENTS SUPERVISOR) pO2 139(H) 83 - 108 mm Hg 09/19/2023 4:23 PM OPTICAL INSTRUMENTS SUPERVISOR STMA pCO2 35 35 - 48 mm Hg 09/19/2023 4:23 PM OPTICAL INSTRUMENTS SUPERVISOR STMA pH 7.43 7.35 - 7.45 pH 09/19/2023 4:23 PM OPTICAL INSTRUMENTS SUPERVISOR STMA Base Excess -1 -2 - 3 mmol/L 09/19/2023 4:23 PM OPTICAL INSTRUMENTS SUPERVISOR STMA HCO3 23 22 - 26 mmol/L 09/19/2023 4:23 PM OPTICAL INSTRUMENTS SUPERVISOR STMA Hemoglobin, Venous 8.9(L) 13.2 - 16.6 g/dL 09/19/2023 4:23 PM OPTICAL INSTRUMENTS SUPERVISOR STMA O2Hb 97.3 94.0 - 98.0 % 09/19/2023 4:23 PM OPTICAL INSTRUMENTS SUPERVISOR STMA COHb 1.4 <3.0 % 09/19/2023 4:23 PM OPTICAL INSTRUMENTS SUPERVISOR STMA MetHb <1.0 <1.5 % 09/19/2023 4:23 PM [employer] CtO2 12.4(L) 18.0 - 21.0 vol % 09/19/2023 4:23 PM [employer] Blood (Blood, Arterial Line) 09/19/2023 4:20 PM [employer] 09/19/2023 4:20 PM [employer] Rowena Antonio M.D. LAB BLOOD NON A DD-ON Performing Organization Address City/State/[facility] Co de Phone Number [facility] [address] [place] [address], [facility] [address] [place] [address] * Transfuse Pooled Cryoprecipitate: (09/19/2023 3:54 PM [employer]) Rowena Antonio M.D. BLOOD TRANSFUSI ON ORDERABLES * Transfuse Pooled Cryoprecipitate: (09/19/2023 3:54 PM [employer]) Rowena Antonio M.D. BLOOD TRANSFUSI ON ORDERABLES * Transfuse Red Blood Cells : (09/19/2023 3:50 PM [employer]) Radha Iqbal M.D. BLOOD TRANSFUSION OR DERABLES * Thromboelastograph, [place], Blood (09/19/2023 3:37 PM [employer]) R, [place], TEG 4.8 4.0 - 9.0 min 09/19/2023 5:46 PM [employer] [facility] K, [place], TEG 1.3 1.0 - 1.8 min 09/19/2023 5:46 PM [employer] Angle, [place], TEG 70.0 64.0 - 78.1 degrees 09/19/2023 5:46 PM [employer] MA, [place], TEG 65.4 57.1 - 72.6 mm 09/19/2023 5:46 PM [employer]MA Ly30, [place], TEG 0.0 0.0 - 4.8 % 09/19/2023 5:46 PM [employer] SUPERVISOR STMA Blood (Blood, Arterial Line) 09/19/2023 3:37 PM [employer]UM[employer] SUPERVISOR 09/19/2023 3:37 PM [employer] SUPERVISOR Rowena Antonio M.D. LAB BLOOD NON A DD-ON [facility] [address] [place] [address], [facility] [address] [place] [address] * Thromboelastograph, Kaolin + Heparinase (09/19/2023 3:37 PM [employer]STRUMENTS SUPERVISOR) R-Heparinase, TEG 4.7 1.9 - 6.5 min 09/19/2023 5:46 PM [employer] SUPERVISOR STMA K-Heparinase, TEG 1.3 1.0 - 1.9 min 09/19/2023 5:46 PM [employer] SUPERVISOR STMA Angle-Heparina se, TEG 72.0 63.5 - 75.1 degrees 09/19/2023 5:46 PM [employer]STR[employer] SUPERVISOR STMA MA-Heparinase, TEG 65.9 57.7 - 69.3 mm 09/19/2023 5:46 PM [employer] SUPERVISOR STMA Hi91-Gwdlekgkr e, TEG 0.0 0.0 - 4.7 % 09/19/2023 5:46 PM [employer] SUPERVISOR STMA Pp60-Lufgrpgtr e, TEG 1.1 0.0 - 15.0 % 09/19/2023 5:46 PM [employer] SUPERVISOR STMA Blood (Blood, Arterial Line) 09/19/2023 3:37 PM [employer]STRUMENTS SUPERVISOR 09/19/2023 3:37 PM [employer] SUPERVISOR Rowena Antonio M.D. LAB BLOOD NON A DD-ON Performing Organization Address [facility] Co de Phone Number [facility] [address] [place] [address] * (ABNORMAL) Platelet Count (09/19/2023 3:37 PM [employer]STRUM[employer] SUPERVISOR) Platelet Count 108(L) 135 - 317 x10(9)/L 09/19/2023 3:45 PM [employer] SUPERVISOR STMA Blood (Blood, Arterial Line) 09/19/2023 3:37 PM [employer] INSTRUMENTS SUPERVISOR 09/19/2023 3:37 PM [employer] SUPERVISOR Rowena Antonio M.D. LAB BLOOD ADD-O N Performing Organization Address [facility] Co de Phone Number [facility] [address] [place] [address] * (ABNORMAL) Prothrombin Time (PT) (09/19/2023 3:37 PM [employer] SUPERVISOR) Prothrombin Time, P 16.1(H) 9.4 - 12.5 sec 09/19/2023 3:51 PM [employer] SUPERVISOR STMA INR 1.5 0.9 - 1.1 09/19/2023 3:51 PM [employer] SUPERVISOR STMA Comment: ----ADDITIONAL INFORMATION---- Standard intensity warfarin therapeutic range: 2.0 to 3.0 ?? High intensity warfarin therapeutic range: 2.5 to 3.5 Blood (Blood, Arterial Line) 09/19/2023 3:37 PM [employer] SUPERVISOR 09/19/2023 3:37 PM [employer] SUPERVISOR Rowena Antonio M.D. LAB BLOOD ADD-O N Performing Organization Address City/[facility]/ZIP Co de Phone Number [facility] [address] [place] [address] * (ABNORMAL) Fibrinogen (09/19/2023 3:37 PM [employer]STRUMENTS SUPERVISOR) [facility] Fibrinogen, P 169(L) 200 - 393 mg/dL 09/19/2023 3:51 PM [employer] INSTRUMENTS SUPERVISOR [facility] Blood (Blood, Arterial Line) 09/19/2023 3:37 PM [employer] INSTRUMENTS SUPERVISOR 09/19/2023 3:37 PM [employer] INSTRUMENTS SUPERVISOR Rowena Antonio M.D. LAB BLOOD ADD-O N Performing Organization Address [facility] Co de Phone Number [facility] [address] [place] [address] * APTT (Activated Partial Thromboplastin Time) (09/19/2023 3:37 PM [employer]STRUMENTS SUPERVISOR) [facility] Activated Partial Thrombopl Time, P 34 25 - 37 sec 09/19/2023 3:53 PM [employer] INSTRUMENTS SUPERVISOR [facility] Blood (Blood, Arterial Line) 09/19/2023 3:37 PM [employer]STRUMENTS SUPERVISOR 09/19/2023 3:37 PM [employer] SUPERVISOR Rowena Antonio M.D. LAB BLOOD ADD-O N Performing Organization Address City/[facility] Co de Phone Number [facility] [address] [place] [address] * (ABNORMAL) Lactate, B - Intra-op (09/19/2023 3:37 PM [employer]UM[employer] SUPERVISOR) [facility] Lactate, B 3.1(H) 0.5 - 2.2 mmol/L 09/19/2023 3:41 PM [employer] SUPERVISOR STMA Blood (Blood, Venous) 09/19/2023 3:37 PM [employer]UM[employer] SUPERVISOR 09/19/2023 3:37 PM [employer] SUPERVISOR Rowena Antonio M.D. LAB BLOOD NON A DD-ON [facility] [address] [place] [address], [facility] 200 [place] [address] * (ABNORMAL) Glucose, Whole Blood (09/19/2023 3:37 PM [employer]UM[employer] SUPERVISOR) Glucose 148(H) 70 - 140 mg/dL 09/19/2023 3:41 PM [employer]ICAL INSTR[employer] SUPERVISOR STMA Blood (Blood, Arterial Line) 09/19/2023 3:37 PM [employer] INSTRUMENTS SUPERVISOR 09/19/2023 3:37 PM [employer] SUPERVISOR Rowena Antonio M.D. LAB BLOOD ADD-O N Performing Organization Address City/[facility]/ZIP Co de Phone Number [facility] [address] [place] [address], [facility] [address] [place] [address] * Potassium, Blood (09/19/2023 3:37 PM [employer] INSTRUMENTS SUPERVISOR) Potassium, B 4.6 3.6 - 5.2 mmol/L 09/19/2023 3:41 PM [employer] SUPERVISOR STMA Blood (Blood, Arterial Line) 09/19/2023 3:37 PM [employer] SUPERVISOR 09/19/2023 3:37 PM [employer] SUPERVISOR Rowena Antonio M.D. LAB BLOOD NON A DD-ON Performing Organization Address City/[facility]/ZIP Co de Phone Number [facility] [address] [place] [address], [facility] [address] [place] [address] * Sodium, B (09/19/2023 3:37 PM [employer]STRUMENTS SUPERVISOR) Sodium, B 140 135 - 145 mmol/L 09/19/2023 3:41 PM [employer] SUPERVISOR STMA Blood (Blood, Arterial Line) 09/19/2023 3:37 PM [employer]ENTS SUPERVISOR 09/19/2023 3:37 PM [employer] SUPERVISOR Rowena Antonio M.D. LAB BLOOD NON A DD-ON Performing Organization Address City/[facility] Co de Phone Number [facility] [address] [place] [address], [facility] 200 [place] [address] * Calcium, Ionized (09/19/2023 3:37 PM OPT[employer] INSTRUMENTS SUPERVISOR) Calcium, Ionized, B 4.83 4.65 - 5.30 mg/dL 09/19/2023 3:41 PM [employer] SUPERVISOR STMA Blood (Blood, Arterial Line) 09/19/2023 3:37 PM [employer] INSTRUMENTS SUPERVISOR 09/19/2023 3:37 PM [employer] INSTRUMENTS SUPERVISOR Rowena Antonio M.D. LAB BLOOD NON A DD-ON Performing Organization Address City/[facility] Co de Phone Number [facility] [address] [place] [address], [facility] [address] [place] [address] * (ABNORMAL) Blood Gas with Coox, Arterial (09/19/2023 3:37 PM [employer] SUPERVISOR) pO2 101 83 - 108 mm Hg 09/19/2023 3:41 PM [employer] SUPERVISOR STMA pCO2 40 35 - 48 mm Hg 09/19/2023 3:41 PM [employer] IN[employer] SUPERVISOR STMA pH 7.37 7.35 - 7.45 pH 09/19/2023 3:41 PM [employer] SUPERVISOR STMA Base Excess -3(L) -2 - 3 mmol/L 09/19/2023 3:41 PM [employer] INSTR[employer] SUPERVISOR STMA HCO3 23 22 - 26 mmol/L 09/19/2023 3:41 PM [employer] SUPERVISOR STMA Hemoglobin, Venous 8.1(L) 13.2 - 16.6 g/dL 09/19/2023 3:41 PM [employer]ICAL INSTR[employer] SUPERVISOR STMA O2Hb 96.3 94.0 - 98.0 % 09/19/2023 3:41 PM [employer] SUPERVISOR STMA COHb 1.4 <3.0 % 09/19/2023 3:41 PM [employer]ICAL INSTRUMENTS SUPERVISOR STMA MetHb 1.0 <1.5 % 09/19/2023 3:41 PM [employer] INSTR[employer] SUPERVISOR STMA CtO2 11.1(L) 18.0 - 21.0 vol % 09/19/2023 3:41 PM [employer] SUPERVISOR STMA Blood (Blood, Arterial Line) 09/19/2023 3:37 PM [employer] INSTRUMENTS SUPERVISOR 09/19/2023 3:37 PM [employer] SUPERVISOR Rowena Antonio M.D. LAB BLOOD NON A DD-ON Performing Organization Address City/[facility]/ZIP Co de Phone Number [facility] [address] [place] [address], [facility] [address] [place] [address] * Transfuse Red Blood Cells : (09/19/2023 3:23 PM [employer]STR[employer] SUPERVISOR) Radha Iqbal M.D. BLOOD TRANSFUSION OR DERABLES * (ABNORMAL) Platelet Count (09/19/2023 2:46 PM OPTICAL INSTRUMENTS SUPERVISOR) [facility] Platelet Count 115(L) 135 - 317 x10(9)/L 09/19/2023 2:56 PM [employer]STR[employer] SUPERVISOR STMA Blood (Blood, Arterial Line) 09/19/2023 2:46 PM [employer] INSTRUMENTS SUPERVISOR 09/19/2023 2:46 PM [employer] SUPERVISOR Rowena Antonio M.D. LAB BLOOD ADD-O N [facility] [address] [place] [address], [facility] [address] [place] [address] * (ABNORMAL) Prothrombin Time (PT) (09/19/2023 2:46 PM [employer] INSTRUMENTS SUPERVISOR) [facility] Prothrombin Time, P 15.4(H) 9.4 - 12.5 sec 09/19/2023 2:58 PM [employer] INSTRUMENTS SUPERVISOR [facility] INR 1.4 0.9 - 1.1 09/19/2023 2:58 PM [employer] INSTRUMENTS SUPERVISOR [facility] Comment: ----ADDITIONAL INFORMATION---- Standard intensity warfarin therapeutic range: 2.0 to 3.0 ?? High intensity warfarin therapeutic range: 2.5 to 3.5 Blood (Blood, Arterial Line) 09/19/2023 2:46 PM [employer] INSTRUMENTS SUPERVISOR 09/19/2023 2:46 PM [employer]ICAL INSTRUMENTS SUPERVISOR Rowena Antonio M.D. LAB BLOOD ADD-O N Performing Organization Address City/[facility]/ZIP Co de Phone Number [facility] [address] [place], [place] [id number] [place] [address] 200 [place] [address] * (ABNORMAL) Fibrinogen (09/19/2023 2:46 PM OPTICAL INSTRUMENTS SUPERVISOR) [facility] Fibrinogen, P 189(L) 200 - 393 mg/dL 09/19/2023 2:58 PM OPTICAL INSTRUMENTS SUPERVISOR [facility] Blood (Blood, Arterial Line) 09/19/2023 2:46 PM OPTICAL INSTRUMENTS SUPERVISOR 09/19/2023 2:46 PM OPT[employer] INSTRUMENTS SUPERVISOR Rowena Antonio M.D. LAB BLOOD ADD-O N Performing Organization Address [facility] Co de Phone Number [facility] [address] [place] [address], [facility] [address] [place] [address] * APTT (Activated Partial Thromboplastin Time) (09/19/2023 2:46 PM OPTICAL INSTRUMENTS SUPERVISOR) [facility] Activated Partial Thrombopl Time, P 32 25 - 37 sec 09/19/2023 3:00 PM [employer]ICAL INSTRUMENTS SUPERVISOR [facility] Blood (Blood, Arterial Line) 09/19/2023 2:46 PM OPTICAL INSTRUMENTS SUPERVISOR 09/19/2023 2:46 PM OPTICAL INSTRUMENTS SUPERVISOR Rowena Antonio M.D. LAB BLOOD ADD-O N Performing Organization Address City/[facility]/ZIP Co de Phone Number [facility] [address] [place] [address], [facility] [address] [place] [address] * Glucose, Whole Blood (09/19/2023 2:46 PM OPTICAL INSTRUMENTS SUPERVISOR) Glucose 139 70 - 140 mg/dL 09/19/2023 2:50 PM OPTICAL INSTRUMENTS SUPERVISOR [facility] Blood (Blood, Arterial Line) 09/19/2023 2:46 PM OPTICAL INSTRUMENTS SUPERVISOR 09/19/2023 2:46 PM OPTICAL INSTRUMENTS SUPERVISOR Rowena Antonio M.D. LAB BLOOD ADD-O N Performing Organization Address [facility] Co de Phone Number [facility] [address] [place] [address], [facility] [address] [place] [address] * Potassium, Blood (09/19/2023 2:46 PM OPTICAL INSTRUMENTS SUPERVISOR) Potassium, B 3.8 3.6 - 5.2 mmol/L 09/19/2023 2:50 PM OPTICAL INSTRUMENTS SUPERVISOR [facility] Blood (Blood, Arterial Line) 09/19/2023 2:46 PM OPTICAL INSTRUMENTS SUPERVISOR 09/19/2023 2:46 PM OPTICAL INSTRUMENTS SUPERVISOR Rowena Antonio M.D. LAB BLOOD NON A DD-ON Performing Organization Address City/[facility]/ZIP Co de Phone Number [facility] [address] [place] [address], [facility] [address] [place] [address] * Sodium, B (09/19/2023 2:46 PM OPTICAL INSTRUMENTS SUPERVISOR) Sodium, B 141 135 - 145 mmol/L 09/19/2023 2:50 PM OPTICAL INSTRUMENTS SUPERVISOR STMA Blood (Blood, Arterial Line) 09/19/2023 2:46 PM OPTICAL INSTRUMENTS SUPERVISOR 09/19/2023 2:46 PM OPTICAL INSTRUMENTS SUPERVISOR Rowena Antonio M.D. LAB BLOOD NON A DD-ON Performing Organization Address [facility] Co de Phone Number [facility] [address] [place] [address] * (ABNORMAL) Calcium, Ionized (09/19/2023 2:46 PM OPTICAL INSTRUMENTS SUPERVISOR) Calcium, Ionized, B 5.36(H) 4.65 - 5.30 mg/dL 09/19/2023 2:50 PM OPTICAL INSTRUMENTS SUPERVISOR STMA Blood (Blood, Arterial Line) 09/19/2023 2:46 PM OPTICAL INSTRUMENTS SUPERVISOR 09/19/2023 2:46 PM OPTICAL INSTRUMENTS SUPERVISOR Rowena Antonio M.D. LAB BLOOD NON A DD-ON Performing Organization Address [facility] Co de Phone Number [facility] [address] [place] [address] * (ABNORMAL) Blood Gas with Coox, Arterial (09/19/2023 2:46 PM OPTICAL INSTRUMENTS SUPERVISOR) pO2 317(H) 83 - 108 mm Hg 09/19/2023 2:50 PM OPTICAL INSTRUMENTS SUPERVISOR STMA pCO2 36 35 - 48 mm Hg 09/19/2023 2:50 PM OPTICAL INSTRUMENTS SUPERVISOR STMA pH 7.42 7.35 - 7.45 pH 09/19/2023 2:50 PM OPTICAL INSTRUMENTS SUPERVISOR STMA Base Excess -1 -2 - 3 mmol/L 09/19/2023 2:50 PM [employer]ICAL INSTRUMENTS SUPERVISOR STMA HCO3 23 22 - 26 mmol/L 09/19/2023 2:50 PM OPTICAL INSTRUMENTS SUPERVISOR STMA Hemoglobin, Venous 8.1(L) 13.2 - 16.6 g/dL 09/19/2023 2:50 PM OPTICAL INSTRUMENTS SUPERVISOR STMA O2Hb 98.0 94.0 - 98.0 % 09/19/2023 2:50 PM OPTICAL INSTRUMENTS SUPERVISOR STMA COHb 1.3 <3.0 % 09/19/2023 2:50 PM OPTICAL INSTRUMENTS SUPERVISOR STMA MetHb 1.1 <1.5 % 09/19/2023 2:50 PM OPTICAL INSTRUMENTS SUPERVISOR STMA CtO2 11.9(L) 18.0 - 21.0 vol % 09/19/2023 2:50 PM OPTICAL INSTRUMENTS SUPERVISOR STMA Blood (Blood, Arterial Line) 09/19/2023 2:46 PM OPTICAL INSTRUMENTS SUPERVISOR 09/19/2023 2:46 PM OPTICAL INSTRUMENTS SUPERVISOR Rowena Antonio M.D. LAB BLOOD NON A DD-ON [facility] [address] [place] [address], [facility] STMA [facility] [address] [place] [address] * DX Chest Retained Surgical Item 1 View (09/19/2023 2:30 PM [employer]ICAL INSTRUMENTS SUPERVISOR) Anatomical Region Laterality Modality Chest, Thoracic RST LOS, Tho racic ARZ LOS, Thoracic FLA LOS N/A Digital Radiography 09/19/2023 2:32 PM OPTICAL INSTRUMENTS SUPERVISOR Impressions 09/19/2023 2:39 PM OPTICAL INSTRUMENTS SUPERVISOR The aforementioned object in question is not identified. New sternotomy, mediastinal clips, AVR, mediastinal drains, right IJ Masterson-Sepideh catheter tip at the MPA are identified. Likely small amount of mediastinal air. ET tube tip is low lying, approximately 1 cm above the blaine, correlation with chin position is recommended. Loop recorder. Shallower inspiration with accentuation of the cardiac silhouette and vascular crowding. Discussed with Dr. Stanford at 2:36 PM on 09/19/2023. Narrative 09/19/2023 2:39 PM OPTICAL INSTRUMENTS SUPERVISOR EXAM: DX CHEST RETAINED SURGICAL ITEM 1 [...] sternotomy,mediastinal clips, AVR, mediastinal drains, right IJ Masterson-Sepideh cathetertip at the MPA are identified. Likely small amount of mediastinal air. ETtube tip is low lying, approximately 1 cm above the blaine, correlation with chin position isrecommended. Loop recorder. Shallower inspiration with accentuation of thecardiac silhouette and vascular crowding. Discussed with Dr. Stanford at 2:36 PM on 09/19/2023. Sarah Miller M.D., M.P.H. IMG DIAGNOSTI C IMAGING PROCEDURES * Transfuse Platelets : (09/19/2023 2:17 PM OPTICAL INSTRUMENTS SUPERVISOR) Radha Iqbal M.D. BLOOD TRANSFUSION OR DERABLES * Transfuse Red Blood Cells : (09/19/2023 2:00 PM OPTICAL INSTRUMENTS SUPERVISOR) Radha Iqbal M.D. BLOOD TRANSFUSION OR DERABLES * (ABNORMAL) Platelet Count (09/19/2023 1:40 PM OPTICAL INSTRUMENTS SUPERVISOR) Pathologist [facility] Platelet Count 95(L) 135 - 317 x10(9)/L 09/19/2023 1:44 PM OPTICAL INSTRUMENTS SUPERVISOR STMA Blood (Blood, Arterial Line) 09/19/2023 1:40 PM OPTICAL INSTRUMENTS SUPERVISOR 09/19/2023 1:40 PM OPTICAL INSTRUMENTS SUPERVISOR Radha Iqbal M.D. LAB BLOOD ADD-ON [facility] [address] [place] [address], [facility] [address] [place] [address] * (ABNORMAL) Prothrombin Time (PT) (09/19/2023 1:40 PM OPTICAL INSTRUMENTS SUPERVISOR) Pathologist [facility] Prothrombin Time, P 16.5(H) 9.4 - 12.5 sec 09/19/2023 1:55 PM OPTICAL INSTRUMENTS SUPERVISOR STMA INR 1.5 0.9 - 1.1 09/19/2023 1:55 PM OPTICAL INSTRUMENTS SUPERVISOR STMA Comment: ----ADDITIONAL INFORMATION---- Standard intensity warfarin therapeutic range: 2.0 to 3.0 ?? High intensity warfarin therapeutic range: 2.5 to 3.5 Blood (Blood, Arterial Line) 09/19/2023 1:40 PM OPTICAL INSTRUMENTS SUPERVISOR 09/19/2023 1:40 PM OPTICAL INSTRUMENTS SUPERVISOR Radha Iqbal M.D. LAB BLOOD ADD-ON [facility] [address] [place] [address], [facility] [address] [place] [address] * (ABNORMAL) Fibrinogen (09/19/2023 1:40 PM OPTICAL INSTRUMENTS SUPERVISOR) Pathologist [facility] Fibrinogen, P 174(L) 200 - 393 mg/dL 09/19/2023 1:56 PM OPTICAL INSTRUMENTS SUPERVISOR STMA Blood (Blood, Arterial Line) 09/19/2023 1:40 PM OPTICAL INSTRUMENTS SUPERVISOR 09/19/2023 1:40 PM OPTICAL INSTRUMENTS SUPERVISOR Radha Iqbal M.D. LAB BLOOD ADD-ON Performing Organization Address [facility] Co de Phone Number [facility] [address] [place], [place] [address] [address] [place] [address] * APTT (Activated Partial Thromboplastin Time) (09/19/2023 1:40 PM OPTICAL INSTRUMENTS SUPERVISOR) Pathologist [facility] Activated Partial Thrombopl Time, P 33 25 - 37 sec 09/19/2023 1:56 PM OPTICAL INSTRUMENTS SUPERVISOR [facility] Blood (Blood, Arterial Line) 09/19/2023 1:40 PM OPTICAL INSTRUMENTS SUPERVISOR 09/19/2023 1:40 PM OPTICAL INSTRUMENTS SUPERVISOR Radha Iqbal M.D. LAB BLOOD ADD-ON Performing Organization Address City/[facility]/ZIP Co de Phone Number [facility] [address] [place] [address], [facility] [address] [place] [address] * (ABNORMAL) Glucose, Whole Blood (09/19/2023 1:40 PM OPTICAL INSTRUMENTS SUPERVISOR) Glucose 155(H) 70 - 140 mg/dL 09/19/2023 1:43 PM OPTICAL INSTRUMENTS SUPERVISOR STMA Blood (Blood, Arterial Line) 09/19/2023 1:40 PM OPTICAL INSTRUMENTS SUPERVISOR 09/19/2023 1:40 PM OPTICAL INSTRUMENTS SUPERVISOR Radha Iqbal M.D. LAB BLOOD ADD-ON [facility] [address] [place], [place] [address] [address] [place] [address] * (ABNORMAL) Potassium, Blood (09/19/2023 1:40 PM OPTICAL INSTRUMENTS SUPERVISOR) Potassium, B 3.3(L) 3.6 - 5.2 mmol/L 09/19/2023 1:43 PM OPTICAL INSTRUMENTS SUPERVISOR [facility] Blood (Blood, Arterial Line) 09/19/2023 1:40 PM OPTICAL INSTRUMENTS SUPERVISOR 09/19/2023 1:40 PM OPTICAL INSTRUMENTS SUPERVISOR Radha Iqbal M.D. LAB BLOOD NON ADD-ON Performing Organization Address City/[facility]/ZIP Co de Phone Number [facility] [address] [place] [address], [facility] [address] [place] [address] * Sodium, B (09/19/2023 1:40 PM OPTICAL INSTRUMENTS SUPERVISOR) Sodium, B 143 135 - 145 mmol/L 09/19/2023 1:43 PM OPTICAL INSTRUMENTS SUPERVISOR [facility] Blood (Blood, Arterial Line) 09/19/2023 1:40 PM OPTICAL INSTRUMENTS SUPERVISOR 09/19/2023 1:40 PM OPTICAL INSTRUMENTS SUPERVISOR Radha Iqbal M.D. LAB BLOOD NON ADD-ON [facility] [address] [place] [address], [facility] [address] [place] [address] * (ABNORMAL) Calcium, Ionized (09/19/2023 1:40 PM OPTICAL INSTRUMENTS SUPERVISOR) Pathologist [facility] Calcium, Ionized, B 3.81(L) 4.65 - 5.30 mg/dL 09/19/2023 1:43 PM OPTICAL INSTRUMENTS SUPERVISOR STMA Blood (Blood, Arterial Line) 09/19/2023 1:40 PM OPTICAL INSTRUMENTS SUPERVISOR 09/19/2023 1:40 PM OPTICAL INSTRUMENTS SUPERVISOR Radha Iqbal M.D. LAB BLOOD NON ADD-ON [facility] [address] [place] [address], [facility] [address] [place] [address] * (ABNORMAL) Blood Gas with Coox, Arterial (09/19/2023 1:40 PM OPTICAL INSTRUMENTS SUPERVISOR) Pathologist [facility] pO2 101 83 - 108 mm Hg 09/19/2023 1:43 PM OPTICAL INSTRUMENTS SUPERVISOR STMA pCO2 36 35 - 48 mm Hg 09/19/2023 1:43 PM OPTICAL INSTRUMENTS SUPERVISOR STMA pH 7.40 7.35 - 7.45 pH 09/19/2023 1:43 PM OPTICAL INSTRUMENTS SUPERVISOR ST[facility] Base Excess -3(L) -2 - 3 mmol/L 09/19/2023 1:43 PM OPTICAL INSTRUMENTS SUPERVISOR STMA HCO3 22 22 - 26 mmol/L 09/19/2023 1:43 PM OPTICAL INSTRUMENTS SUPERVISOR STMA Hemoglobin, Venous 7.2(L) 13.2 - 16.6 g/dL 09/19/2023 1:43 PM OPTICAL INSTRUMENTS SUPERVISOR STMA O2Hb 97.1 94.0 - 98.0 % 09/19/2023 1:43 PM OPTICAL INSTRUMENTS SUPERVISOR STMA COHb 1.4 <3.0 % 09/19/2023 1:43 PM OPTICAL INSTRUMENTS SUPERVISOR STMA MetHb <1.0 <1.5 % 09/19/2023 1:43 PM OPTICAL INSTRUMENTS SUPERVISOR STMA CtO2 10.1(L) 18.0 - 21.0 vol % 09/19/2023 1:43 PM OPTICAL INSTRUMENTS SUPERVISOR STMA Blood (Blood, Arterial Line) 09/19/2023 1:40 PM OPTICAL INSTRUMENTS SUPERVISOR 09/19/2023 1:40 PM OPTICAL INSTRUMENTS SUPERVISOR Radha Iqbal M.D. LAB BLOOD NON ADD-ON Performing Organization Address City/[facility]/ZIP Co de Phone Number [facility] [address] [place] [address], [facility] [address] [place] [address] * Transfuse autologous RBC (Cell Salvage) : (09/19/2023 1:28 PM OPTICAL INSTRUMENTS SUPERVISOR) Radha Iqbal M.D. BLOOD TRANSFUSION OR DERABLES * Transfuse Fresh Frozen Plasma : (09/19/2023 1:24 PM OPTICAL INSTRUMENTS SUPERVISOR) Radha Iqbal M.D. BLOOD TRANSFUSION OR DERABLES * Transfuse Platelets : (09/19/2023 1:09 PM OPTICAL INSTRUMENTS SUPERVISOR) Radha Iqbal M.D. BLOOD TRANSFUSION OR DERABLES * Lactate, B - Intra-op (09/19/2023 12:45 PM OPTICAL INSTRUMENTS SUPERVISOR) Lactate, B 2.0 0.5 - 2.2 mmol/L 09/19/2023 12:46 PM OPTICAL INSTRUMENTS SUPERVISOR [facility] Blood (Blood, Venous) 09/19/2023 12:45 PM OPTICAL INSTRUMENTS SUPERVISOR 09/19/2023 12:45 PM OPTICAL INSTRUMENTS SUPERVISOR Radha Iqbal M.D. LAB BLOOD NON ADD-ON Performing Organization Address City/[facility]/ZIP Co de Phone Number [facility] [address] [place] [address], [facility] [address] [place] [address] * (ABNORMAL) Glucose, Whole Blood (09/19/2023 12:45 PM OPTICAL INSTRUMENTS SUPERVISOR) Glucose 151(H) 70 - 140 mg/dL 09/19/2023 12:46 PM [employer]PER[employer] [facility] (Blood, Arterial Line) 09/19/2023 12:45 PM [employer] SUPERVIS[employer] 09/19/2023 12:45 PM [employer] SUPERVISOR Radha Iqbal M.D. LAB BLOOD ADD-ON [facility] [address] [place] [address], [facility] [address] [place] [address] * Potassium, Blood (09/19/2023 12:45 PM [employer] SUPERVIS[employer]) Potassium, B 3.8 3.6 - 5.2 mmol/L 09/19/2023 12:46 PM [employer] SUPER[employer] [facility] Blood (Blood, Arterial Line) 09/19/2023 12:45 PM [employer] SUPER[employer]OR 09/19/2023 12:45 PM [employer] SUPERVISOR Radha Iqbal M.D. LAB BLOOD NON ADD-ON Performing Organization Address City/[facility]/ZIP Co de Phone Number [facility] [address] [place], [place] [address] [address] [place] [address] * Sodium, B (09/19/2023 12:45 PM [employer] SUPERVISOR) Sodium, B 142 135 - 145 mmol/L 09/19/2023 12:46 PM [employer] SUPERVIS[employer] [facility] Blood (Blood, Arterial Line) 09/19/2023 12:45 PM [employer] SUPERVISOR 09/19/2023 12:45 PM [employer] SUPERVIS[employer] Radha Iqbal M.D. LAB BLOOD NON ADD-ON [facility] [address] [place] [address], [facility] [address] [place] [address] * Calcium, Ionized (09/19/2023 12:45 PM OPTICAL INSTRUMENTS SUPERVISOR) Calcium, Ionized, B 4.86 4.65 - 5.30 mg/dL 09/19/2023 12:46 PM OPTICAL INSTRUMENTS SUPERVISOR [facility] Blood (Blood, Arterial Line) 09/19/2023 12:45 PM [employer] INSTRUMENTS SUPERVISOR 09/19/2023 12:45 PM [employer] INSTRUMENTS SUPERVISOR Radha Iqbal M.D. LAB BLOOD NON ADD-ON [facility] [address] [place] [address], [facility] STMA [facility] [address] [place] [address] * (ABNORMAL) Blood Gas with Coox, Arterial (09/19/2023 12:45 PM OPT[employer] INSTRUMENTS SUPERVISOR) pO2 360(H) 83 - 108 mm Hg 09/19/2023 12:46 PM OPTICAL INSTRUMENTS SUPERVISOR [facility] pCO2 37 35 - 48 mm Hg 09/19/2023 12:46 PM OPTICAL INSTRUMENTS SUPERVISOR [facility] pH 7.43 7.35 - 7.45 pH 09/19/2023 12:46 PM OPTICAL INSTRUMENTS SUPERVISOR [facility] Base Excess 0 -2 - 3 mmol/L 09/19/2023 12:46 PM [employer]ICAL INSTRUMENTS SUPERVISOR [facility] HCO3 25 22 - 26 mmol/L 09/19/2023 12:46 PM OPTICAL INSTRUMENTS SUPERVISOR [facility] Hemoglobin, Venous 8.5(L) 13.2 - 16.6 g/dL 09/19/2023 12:46 PM [employer]ICAL INSTRUMENTS SUPERVISOR [facility] O2Hb 98.9(H) 94.0 - 98.0 % 09/19/2023 12:46 PM [employer]ICAL INSTRUMENTS SUPERVISOR [facility] COHb 1.1 <3.0 % 09/19/2023 12:46 PM [employer]ICAL INSTRUMENTS SUPERVISOR [facility] MetHb <1.0 <1.5 % 09/19/2023 12:46 PM OPTICAL INSTRUMENTS SUPERVISOR [facility] CtO2 12.8(L) 18.0 - 21.0 vol % 09/19/2023 12:46 PM OPTICAL INSTRUMENTS SUPERVISOR [facility] Blood (Blood, Arterial Line) 09/19/2023 12:45 PM [employer] INSTRUMENTS SUPERVISOR 09/19/2023 12:45 PM [employer] INSTRUMENTS SUPERVISOR Radha Iqbal M.D. LAB BLOOD NON ADD-ON [facility] [address] [place], [place] [address] [place] [address] 200 [place] [address] * (ABNORMAL) Platelet Count (09/19/2023 12:44 PM [employer]STRUMENTS SUPERVISOR) [facility] Platelet Count 62(L) 135 - 317 x10(9)/L 09/19/2023 12:51 PM [employer]STRUMENTS SUPERVISOR [facility] Blood (Blood, Arterial Line) 09/19/2023 12:44 PM [employer] INSTRUMENTS SUPERVISOR 09/19/2023 12:44 PM [employer] INSTRUMENTS SUPERVISOR Radha Iqbal M.D. LAB BLOOD ADD-ON [facility] [address] [place], [place] [address] [place] [address] 200 [place] [address] * (ABNORMAL) Prothrombin Time (PT) (09/19/2023 12:44 PM OPT[employer] INSTRUMENTS SUPERVISOR) [facility] Prothrombin Time, P 18.5(H) 9.4 - 12.5 sec 09/19/2023 1:00 PM [employer]STRUMENTS SUPERVISOR [facility] INR 1.7 0.9 - 1.1 09/19/2023 1:00 PM [employer] INSTRUMENTS SUPERVISOR [facility] Comment: ----ADDITIONAL INFORMATION---- Standard intensity warfarin therapeutic range: 2.0 to 3.0 ?? High intensity warfarin therapeutic range: 2.5 to 3.5 Blood (Blood, Arterial Line) 09/19/2023 12:44 PM [employer] INSTRUMENTS SUPERVISOR 09/19/2023 12:44 PM [employer]STRUMENTS SUPERVISOR Radha Iqbal M.D. LAB BLOOD ADD-ON [facility] [address] [place], [place] [id number] [place] [address] 200 [place] [address] * (ABNORMAL) Fibrinogen (09/19/2023 12:44 PM OPT[employer] INSTRUMENTS SUPERVISOR) [facility] Fibrinogen, P 195(L) 200 - 393 mg/dL 09/19/2023 12:59 PM [employer] INSTRUMENTS SUPERVISOR [facility] Blood (Blood, Arterial Line) 09/19/2023 12:44 PM [employer] INSTRUMENTS SUPERVISOR 09/19/2023 12:44 PM [employer] INSTRUMENTS SUPERVISOR Radha Iqbal M.D. LAB BLOOD ADD-ON Performing Organization Address City/[facility]/ZIP Co de Phone Number [facility] [address] [place] [address], [facility] 200 [place] [address] * (ABNORMAL) APTT (Activated Partial Thromboplastin Time) (09/19/2023 12:44 PM [employer]STRUMENTS SUPERVISOR) Pathologist [facility] Activated Partial Thrombopl Time, P 40(H) 25 - 37 sec 09/19/2023 1:01 PM [employer] INSTRUMENTS SUPERVISOR [facility] Blood (Blood, Arterial Line) 09/19/2023 12:44 PM [employer] INSTRUMENTS SUPERVISOR 09/19/2023 12:44 PM [employer]STRUMENTS SUPERVISOR Radha Iqbal M.D. LAB BLOOD ADD-ON Performing Organization Address [facility]/ZIP Co de Phone Number [facility] [address] [place] [address], [facility] 200 [place] [address] * ACT (Activated Clotting Time), POCT (09/19/2023 12:42 PM [employer] INSTRUMENTS SUPERVISOR) [facility] Activated Clotting Time 126 82 - 152 sec 09/19/2023 12:45 PM [employer] INSTRUMENTS SUPERVISOR PCLX 09/19/2023 12:4 2 PM [employer] INSTRUMENTS SUPERVISOR 09/19/2023 12:45 PM [employer] INSTRUMENTS SUPERVISOR Unknown Provider LAB POCT ORDERABLES - DEVICE Performing Organization Address City/[facility]/ZIP Co de Phone Number POC [facility] [address] [place] [address], [facility] PCLX [facility] POC [address] [place] [address] * (ABNORMAL) Hemoglobin (HGB), POCT (09/19/2023 12:17 PM [employer] INSTRUMENTS SUPERVISOR) Pathologist [facility] Hemoglobin, POCT, B 8.7(L) 13.2 - 16.6 g/dL 09/19/2023 12:23 PM [employer] INSTRUMENTS SUPERVISOR PCSM Blood 09/19/2023 12:1 7 PM [employer] INSTRUMENTS SUPERVISOR 09/19/2023 12:23 PM [employer] INSTRUMENTS SUPERVISOR Unknown Provider LAB POCT ORDERABLES - DEVICE Performing Organization Address City/[facility]/ZIP Co de Phone Number [facility]OC [facility] [address] [place] [address], [facility] [address] [place] [address] * (ABNORMAL) ACT (Activated Clotting Time), POCT (09/19/2023 12:01 PM [employer] INSTRUMENTS SUPERVISOR) Activated Clotting Time 668(H) 82 - 152 sec 09/19/2023 12:18 PM OPTICAL INSTRUMENTS SUPERVISOR PCLX 09/19/2023 12:0 1 PM [employer] INSTRUMENTS SUPERVISOR 09/19/2023 12:18 PM [employer] INSTRUMENTS SUPERVISOR Unknown Provider LAB POCT ORDERABLES - DEVICE Performing Organization Address City/[facility]/ZIP Co de Phone Number POC [facility] [address] [place] [address], [facility] PCLX [facility] POC [address] [place] [address] * (ABNORMAL) Glucose, POCT (09/19/2023 12:00 PM [employer] INSTRUMENTS SUPERVISOR) Glucose, POCT, B 150(H) 70 - 140 mg/dL 09/19/2023 12:01 PM [employer] INSTRUMENTS SUPERVISOR PCSM Site ARTLINE 09/19/2023 12:01 PM OPT[employer] INSTRUMENTS SUPERVISOR PCSM Blood 09/19/2023 12:0 0 PM [employer] INSTRUMENTS SUPERVISOR 09/19/2023 12:01 PM [employer] INSTRUMENTS SUPERVISOR Unknown Provider LAB POCT ORDERABLES- MANUAL POC [facility] [address] [place] [address], [facility] PCSM [facility] POC [address] [place] [address] * Surgical Pathology, Frozen Lab (09/19/2023 11:34 AM OPT[employer] INSTRUMENTS SUPERVISOR) 09/25/2023 10:47 AM [facility] Participated in the Interpretation Amber Gutierrez M.D. -Pathology Resident 09/25/2023 10:47 AM [facility] Report electronically signed by Zohreh De La Cruz M.D. I verify that I have examined all relevant slides/materials for the specimen(s) and rendered or confirmed the diagnosis. 09/25/2023 10:47 AM [facility] Gross Description A. ??Received fresh labeled with the patient's name, medical record number, and designated as heart, left atrial appendage. ??It consists of a 2.6 x 2.4 x 1.3 cm atrial appendage without mural thrombus. ??Lead Generation Representative sections are submitted for microscopy in cassette A1. ??Grossed by Teresa Qureshi M.S., GEORGE([facility]). B. ??Received fresh labeled with the patient's [...] up to 0.2 cm in greatest size. ??Lead Generation Representative sections are submitted for microscopy in cassette B1, following decalcification. Grossed by Teresa Qureshi M.S., PA([facility]). 09/25/2023 10:47 AM [facility] Block Summary A Heart, left atrial appendage A1 B Heart, aortic valve B1 09/25/2023 10:47 AM [facility] Interpretation FINAL DIAGNOSIS A. ??Heart, left atrial appendage, excision: Mild myocyte hypertrophy and mild interstitial fibrosis, without mural thrombus. B. ??Heart, aortic valve, excision: ? 1. ??Degenerative fibrocalcific aortic valve disease, with moderate calcification ?(evaluated with Verhoeff-Van Gieson stain on block B1). ? 2. ??History of severe aortic stenosis and trivial aortic regurgitation. Diagnosis was made via digital imaging. 09/25/2023 10:47 AM OPTICAL INSTRUMENTS SUPERVISOR [facility] Tissue (Heart, Atrium) 09/19/2023 11:34 AM OPT[employer] INSTRUMENTS SUPERVISOR Tissue (Heart Valve, Aortic) 09/19/2023 11:34 AM OPT[employer] INSTRUMENTS SUPERVISOR Sarah Miller M.D., M.P.H. LAB SURG PATH ORDERABLES Performing Organization Address [facility] Co de Phone Number [facility] [address] [place] [address], [facility] STMA 200 [facility] 200 [place] [address] * Transfuse autologous RBC (Cell Salvage) : (09/19/2023 11:33 AM OPT[employer] INSTRUMENTS SUPERVISOR) Radha Iqbal M.D. BLOOD TRANSFUSION OR DERABLES * (ABNORMAL) ACT (Activated Clotting Time), POCT (09/19/2023 11:28 AM OPT[employer] INSTRUMENTS SUPERVISOR) Activated Clotting Time 587(H) 82 - 152 sec 09/19/2023 11:43 AM OPTICAL INSTRUMENTS SUPERVISOR PCLX 09/19/2023 11:2 8 AM [employer] INSTRUMENTS SUPERVISOR 09/19/2023 11:43 AM [employer] INSTRUMENTS SUPERVISOR Unknown Provider LAB POCT ORDERABLES - DEVICE Performing Organization Address [facility] de Phone Number POC [facility] [address] [place] [address], [facility] PCLX [facility] POC [address] [place] [address] * (ABNORMAL) ACT (Activated Clotting Time), POCT (09/19/2023 10:55 AM OPT[employer] INSTRUMENTS SUPERVISOR) Activated Clotting Time 631(H) 82 - 152 sec 09/19/2023 11:05 AM OPTICAL INSTRUMENTS SUPERVISOR PCLX 09/19/2023 10:5 5 AM [employer] INSTRUMENTS SUPERVISOR 09/19/2023 11:05 AM OPT[employer] INSTRUMENTS SUPERVISOR Unknown Provider LAB POCT ORDERABLES - DEVICE Performing Organization Address [facility] Co de Phone Number POC [facility] [address] [place] [address], [facility] PCLX [facility] POC [address] [place] [address] * (ABNORMAL) ACT (Activated Clotting Time), POCT (09/19/2023 10:24 AM OPTICAL INSTRUMENTS SUPERVISOR) Pathologist [facility] Activated Clotting Time 747(H) 82 - 152 sec 09/19/2023 10:37 AM OPTICAL INSTRUMENTS SUPERVISOR PCLX 09/19/2023 10:2 4 AM OPTICAL INSTRUMENTS SUPERVISOR 09/19/2023 10:37 AM OPTICAL INSTRUMENTS SUPERVISOR Unknown Provider LAB POCT ORDERABLES - DEVICE Performing Organization Address City/[facility]/ZIP Co de Phone Number POC [facility] [address] [place] [address], [facility] PCLX [facility] POC [address] [place] [address] * (ABNORMAL) Glucose, POCT (09/19/2023 10:23 AM OPTICAL INSTRUMENTS SUPERVISOR) Pathologist [facility] Glucose, POCT, B 148(H) 70 - 140 mg/dL 09/19/2023 10:24 AM OPTICAL INSTRUMENTS SUPERVISOR PCSM Site ARTLINE 09/19/2023 10:24 AM OPTICAL INSTRUMENTS SUPERVISOR [facility] Blood 09/19/2023 10:2 3 AM OPTICAL INSTRUMENTS SUPERVISOR 09/19/2023 10:24 AM OPT[employer] INSTRUMENTS SUPERVISOR Unknown Provider LAB POCT ORDERABLES- MANUAL POC [facility] [address] [place] [address], [facility] PCSM [facility] POC [address] [place] [address] * Transfuse Red Blood Cells : (09/19/2023 10:13 AM OPTICAL INSTRUMENTS SUPERVISOR) Radha Iqbal M.D. BLOOD TRANSFUSION OR DERABLES * (EDMUNDO) - INTRAOPERATIVE WITH COLOR AND LIMITED DOPPLER (PROBE NOT PLACED) (09/19/2023 9:56 AM OPTICAL INSTRUMENTS SUPERVISOR) Pathologist [facility] Ejection Fraction [facility] EIME Anatomical Region Laterality Modality Echocardiography 09/19/2023 6:43 AM OPTICAL INSTRUMENTS SUPERVISOR Impressions 09/19/2023 1:45 PM OPTICAL INSTRUMENTS SUPERVISOR PROCEDURE:Transesophageal echocardiogram performed at the request of the primary rn social services. Transesophageal echocardiogram completed without complications. PRE-BYPASS:Pre-bypass left [...] the Order-Level Documents. Narrative 09/19/2023 1:45 PM OPT[employer] INSTRUMENTS SUPERVISOR For the complete report, see the Order-Level [...] PROCEDURE:Transesophageal echocardiogram [facility] the [facility]. Transesophageal echocardiogram completedwithout complications. PRE-BYPASS:Pre-bypass left ventricular [...] Miller M.D., M.P.H. CV ECHO PROCE TERI * (ABNORMAL) ACT (Activated Clotting Time), POCT (09/19/2023 9:51 AM OPTICAL INSTRUMENTS SUPERVISOR) Activated Clotting Time 910(H) 82 - 152 sec 09/19/2023 10:04 AM OPTICAL INSTRUMENTS SUPERVISOR PCLX 09/19/2023 9:51 AM OPTICAL INSTRUMENTS SUPERVISOR 09/19/2023 10:04 AM OPTICAL INSTRUMENTS SUPERVISOR Unknown Provider LAB POCT ORDERABLES - DEVICE POC [facility] [address] [place] [address], [facility] PCLX [facility] POC [address] [place] [address] * Glucose, Whole Blood (09/19/2023 9:51 AM OPTICAL INSTRUMENTS SUPERVISOR) Glucose 126 70 - 140 mg/dL 09/19/2023 9:53 AM OPTICAL INSTRUMENTS SUPERVISOR ST[facility] Blood (Blood, Arterial Line) 09/19/2023 9:51 AM OPTICAL INSTRUMENTS SUPERVISOR 09/19/2023 9:51 AM OPTICAL INSTRUMENTS SUPERVISOR Sarah Miller M.D., M.P.H. LAB BLOOD ADD -ON [facility] [address] [place] [address], [facility] [address] [place] [address] * Potassium, Blood (09/19/2023 9:51 AM OPTICAL INSTRUMENTS SUPERVISOR) Potassium, B 4.1 3.6 - 5.2 mmol/L 09/19/2023 9:53 AM OPTICAL INSTRUMENTS SUPERVISOR ST[facility] Blood (Blood, Arterial Line) 09/19/2023 9:51 AM OPTICAL INSTRUMENTS SUPERVISOR 09/19/2023 9:51 AM OPTICAL INSTRUMENTS SUPERVISOR Sarah Miller M.D., M.P.H. LAB BLOOD NON ADD-ON [facility] [address] [place] [address], [facility] [address] [place] [address] * Sodium, B (09/19/2023 9:51 AM OPTICAL INSTRUMENTS SUPERVISOR) Sodium, B 143 135 - 145 mmol/L 09/19/2023 9:53 AM OPTICAL INSTRUMENTS SUPERVISOR ST[facility] Blood (Blood, Arterial Line) 09/19/2023 9:51 AM OPTICAL INSTRUMENTS SUPERVISOR 09/19/2023 9:51 AM OPTICAL INSTRUMENTS SUPERVISOR Sarah Miller M.D., M.P.H. LAB BLOOD NON ADD-ON Performing Organization Address City/[facility]/[place] [address] * (ABNORMAL) Calcium, Ionized (09/19/2023 9:51 AM OPTICAL INSTRUMENTS SUPERVISOR) Pathologist [facility] Calcium, Ionized, B 3.99(L) 4.65 - 5.30 mg/dL 09/19/2023 9:53 AM OPTICAL INSTRUMENTS SUPERVISOR ST[facility] Blood (Blood, Arterial Line) 09/19/2023 9:51 AM OPTICAL INSTRUMENTS SUPERVISOR 09/19/2023 9:51 AM OPTICAL INSTRUMENTS SUPERVISOR Sarah Miller M.D., M.P.H. LAB BLOOD NON ADD-ON Performing Organization Address City/[facility] [place] [address] * (ABNORMAL) Blood Gas with Coox, Arterial (09/19/2023 9:51 AM OPTICAL INSTRUMENTS SUPERVISOR) Pathologist [facility] pO2 339(H) 83 - 108 mm Hg 09/19/2023 9:53 AM OPTICAL INSTRUMENTS SUPERVISOR STMA pCO2 38 35 - 48 mm Hg 09/19/2023 9:53 AM OPTICAL INSTRUMENTS SUPERVISOR STMA pH 7.45 7.35 - 7.45 pH 09/19/2023 9:53 AM OPTICAL INSTRUMENTS SUPERVISOR STMA Base Excess 2 -2 - 3 mmol/L 09/19/2023 9:53 AM OPTICAL INSTRUMENTS SUPERVISOR ST[facility] HCO3 26 22 - 26 mmol/L 09/19/2023 9:53 AM OPTICAL INSTRUMENTS SUPERVISOR STMA Hemoglobin, Venous 8.1(L) 13.2 - 16.6 g/dL 09/19/2023 9:53 AM OPTICAL INSTRUMENTS SUPERVISOR STMA O2Hb 99.1(H) 94.0 - 98.0 % 09/19/2023 9:53 AM OPTICAL INSTRUMENTS SUPERVISOR STMA COHb 1.2 <3.0 % 09/19/2023 9:53 AM OPTICAL INSTRUMENTS SUPERVISOR STMA MetHb <1.0 <1.5 % 09/19/2023 9:53 AM OPTICAL INSTRUMENTS SUPERVISOR STMA CtO2 12.2(L) 18.0 - 21.0 vol % 09/19/2023 9:53 AM OPTICAL INSTRUMENTS SUPERVISOR ST[facility] Blood (Blood, Arterial Line) 09/19/2023 9:51 AM OPTICAL INSTRUMENTS SUPERVISOR 09/19/2023 9:51 AM OPTICAL INSTRUMENTS SUPERVISOR Sarah Miller M.D., M.P.H. LAB BLOOD NON ADD-ON [facility] [address] [place] [address], [facility] STMA [facility] [address] [place] [address] * (ABNORMAL) ACT (Activated Clotting Time), POCT (09/19/2023 9:26 AM OPTICAL INSTRUMENTS SUPERVISOR) Pathologist [facility] Activated Clotting Time 868(H) 82 - 152 sec 09/19/2023 9:37 AM OPTICAL INSTRUMENTS SUPERVISOR PCLX 09/19/2023 9:26 AM OPTICAL INSTRUMENTS SUPERVISOR 09/19/2023 9:37 AM OPTICAL INSTRUMENTS SUPERVISOR Unknown Provider LAB POCT ORDERABLES - DEVICE Performing Organization Address [facility] de Phone Number POC [facility] [address] [place] [address], [facility] PCLX [facility] POC [address] [place] [address] * (ABNORMAL) Hemoglobin (HGB), POCT (09/19/2023 9:24 AM OPTICAL INSTRUMENTS SUPERVISOR) Hemoglobin, POCT, B 9.8(L) 13.2 - 16.6 g/dL 09/19/2023 9:31 AM OPTICAL INSTRUMENTS SUPERVISOR PCSM Blood 09/19/2023 9:24 AM OPTICAL INSTRUMENTS SUPERVISOR 09/19/2023 9:31 AM OPTICAL INSTRUMENTS SUPERVISOR Unknown Provider LAB POCT ORDERABLES - DEVICE Performing Organization Address City/[facility]/ZIP Co de Phone Number POC [facility] [address] [place] [address], [facility] PCSM [facility] POC [address] [place] [address] * Lactate, B - Intra-op (09/19/2023 8:25 AM OPTICAL INSTRUMENTS SUPERVISOR) Lactate, B 0.9 0.5 - 2.2 mmol/L 09/19/2023 8:28 AM OPTICAL INSTRUMENTS SUPERVISOR [facility] Blood (Blood, Venous) 09/19/2023 8:25 AM OPTICAL INSTRUMENTS SUPERVISOR 09/19/2023 8:25 AM OPTICAL INSTRUMENTS SUPERVISOR Radha Iqbal M.D. LAB BLOOD NON ADD-ON [facility] [address] [place] [address], [facility] [address] [place] [address] * Glucose, Whole Blood (09/19/2023 8:25 AM OPTICAL INSTRUMENTS SUPERVISOR) Glucose 133 70 - 140 mg/dL 09/19/2023 8:28 AM OPTICAL INSTRUMENTS SUPERVISOR [facility] Blood (Blood, Arterial Line) 09/19/2023 8:25 AM OPTICAL INSTRUMENTS SUPERVISOR 09/19/2023 8:25 AM OPTICAL INSTRUMENTS SUPERVISOR Radha Iqbal M.D. LAB BLOOD ADD-ON [facility] [address] [place] [address], [facility] [address] [place] [address] * Potassium, Blood (09/19/2023 8:25 AM OPTICAL INSTRUMENTS SUPERVISOR) Potassium, B 3.8 3.6 - 5.2 mmol/L 09/19/2023 8:28 AM OPTICAL INSTRUMENTS SUPERVISOR [facility] Blood (Blood, Arterial Line) 09/19/2023 8:25 AM OPTICAL INSTRUMENTS SUPERVISOR 09/19/2023 8:25 AM OPTICAL INSTRUMENTS SUPERVISOR Radha Iqbal M.D. LAB BLOOD NON ADD-ON [facility] [address] [place] [address] * Sodium, B (09/19/2023 8:25 AM OPTICAL INSTRUMENTS SUPERVISOR) Sodium, B 143 135 - 145 mmol/L 09/19/2023 8:28 AM OPTICAL INSTRUMENTS SUPERVISOR [facility] Blood (Blood, Arterial Line) 09/19/2023 8:25 AM OPTICAL INSTRUMENTS SUPERVISOR 09/19/2023 8:25 AM OPTICAL INSTRUMENTS SUPERVISOR Radha Iqbal M.D. LAB BLOOD NON ADD-ON [facility] [address] [place] [address] * (ABNORMAL) Calcium, Ionized (09/19/2023 8:25 AM OPTICAL INSTRUMENTS SUPERVISOR) Pathologist [facility] Calcium, Ionized, B 4.50(L) 4.65 - 5.30 mg/dL 09/19/2023 8:28 AM OPTICAL INSTRUMENTS SUPERVISOR [facility] Blood (Blood, Arterial Line) 09/19/2023 8:25 AM OPTICAL INSTRUMENTS SUPERVISOR 09/19/2023 8:25 AM OPTICAL INSTRUMENTS SUPERVISOR Radha Iqbal M.D. LAB BLOOD NON ADD-ON [facility] [address] [place] [address] * (ABNORMAL) Blood Gas with Coox, Arterial (09/19/2023 8:25 AM OPTICAL INSTRUMENTS SUPERVISOR) pO2 421(H) 83 - 108 mm Hg 09/19/2023 8:28 AM OPTICAL INSTRUMENTS SUPERVISOR ST[facility] pCO2 40 35 - 48 mm Hg 09/19/2023 8:28 AM OPTICAL INSTRUMENTS SUPERVISOR [facility] pH 7.42 7.35 - 7.45 pH 09/19/2023 8:28 AM OPTICAL INSTRUMENTS SUPERVISOR STMA Base Excess 1 -2 - 3 mmol/L 09/19/2023 8:28 AM OPTICAL INSTRUMENTS SUPERVISOR [facility] HCO3 26 22 - 26 mmol/L 09/19/2023 8:28 AM OPTICAL INSTRUMENTS SUPERVISOR [facility] Hemoglobin, Venous 9.8(L) 13.2 - 16.6 g/dL 09/19/2023 8:28 AM OPTICAL INSTRUMENTS SUPERVISOR [facility] O2Hb 98.6(H) 94.0 - 98.0 % 09/19/2023 8:28 AM OPTICAL INSTRUMENTS SUPERVISOR [facility] COHb 1.0 <3.0 % 09/19/2023 8:28 AM OPTICAL INSTRUMENTS SUPERVISOR [facility] MetHb <1.0 <1.5 % 09/19/2023 8:28 AM OPTICAL INSTRUMENTS SUPERVISOR [facility] CtO2 14.7(L) 18.0 - 21.0 vol % 09/19/2023 8:28 AM OPTICAL INSTRUMENTS SUPERVISOR [facility] Blood (Blood, Arterial Line) 09/19/2023 8:25 AM OPTICAL INSTRUMENTS SUPERVISOR 09/19/2023 8:25 AM OPTICAL INSTRUMENTS SUPERVISOR Radha Iqbal M.D. LAB BLOOD NON ADD-ON [facility] [address] [place] [address], [facility] STMA [facility] [address] [place] [address] * ACT (Activated Clotting Time), POCT (09/19/2023 8:24 AM OPTICAL INSTRUMENTS SUPERVISOR) Activated Clotting Time 132 82 - 152 sec 09/19/2023 8:27 AM OPTICAL INSTRUMENTS SUPERVISOR PCLX 09/19/2023 8:24 AM OPTICAL INSTRUMENTS SUPERVISOR 09/19/2023 8:27 AM OPTICAL INSTRUMENTS SUPERVISOR Unknown Provider LAB POCT ORDERABLES - DEVICE POC [facility] [address] [place] [address], [facility] PCLX [facility] [address] [place] [address] documented in this encounter Visit Diagnoses Diagnosis Stenosis Aortic Valve Acquired- Primary Acquired Aortic Valve Disorder Stenosis Aortic Valve Acquired Decline Functional Status [R53.81] 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 History Cardiac Surgery Status Post Failure Renal Acute (Acute Kidney Injury) (HCC) 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 Glomerular Filtration Rate (GFR) 30 To 44 (HCC) Hyperlipidemia On Treatment Acquired Aortic Valve Disorder 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 Glomerular Filtration Rate (GFR) 30 To 44 (HCC) Hyperlipidemia On Treatment Benign Prostatic Hyperplasia Without Obstruction Atrial Fibrillation Paroxysmal (HCC) Diabetes Mellitus Type 2 (HCC) Hypertension Essential 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 Prosthesis Aortic Valve Coronary Artery Disease Without Angina Pectoris Anemia In Chronic Kidney Disease Stroke Cerebrovascular Accident Personal History Anemia Posthemorrhagic Acute (Blood Loss Anemia) Failure Renal Acute (Acute Kidney Injury) (HCC) Hyperkalemia Acidosis Lactic 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 Therapy Jail Antiplatelet Thrombocytopenia Secondary Hemiplegia Dominant Side Right (HCC) Device Cardiac Status Post Cardiac Surgery Status Post Effusion Pleural documented in this encounter Admitting Diagnoses Diagnosis Stenosis Aortic Valve Acquired Acquired Aortic Valve Disorder documented in this encounter Administered Medications Inactive Administered Medications - up to 3 most recent administrations Medication Order MAR Action Action Date Dose Rate Site acetaminophen tablet 1,000 mg (TYLENOL) 1,000 mg, oral, Every 6 hours, First dose (after last modification) on Sun09/21/23 at 1800 Given 09/26/2023 11:39 AM OPTICAL INSTRUMENTS SUPERVISOR 1,000 mg Given 09/26/2023 6:59 AM OPTICAL INSTRUMENTS SUPERVISOR 1,000 mg Given 09/26/2023 12:55 AM OPTICAL INSTRUMENTS SUPERVISOR 1,000 mg acetaminophen tablet 650 mg (TYLENOL) 650 mg, oral, Every 6 hours, First dose on Sun09/19/23 at 1800, For 48 hours Given 09/21/2023 11:25 AM OPTICAL INSTRUMENTS SUPERVISOR 650 mg Given 09/21/2023 5:21 AM OPTICAL INSTRUMENTS SUPERVISOR 650 mg Given 09/20/2023 11:13 PM OPTICAL INSTRUMENTS SUPERVISOR 650 mg albumin human 25 % injection 100 mL 100 mL, intravenous, at 100 mL/hr, Administer over 60 Minutes, Once, On 09/22/23 at 2330, For 1 dose, Infuse over 1 hour. New Bag 09/22/2023 11:29 PM [employer] 100 mL 100 mL/hr albumin human 25 % injection 25 g 25 g, intravenous, Once, On 09/23/23 at 1030, For 1 dose, If no infusion rate specified: Administer the 25% solution at 100 mL/hr New Bag 09/23/2023 10:57 AM [employer] 25 g albuterol nebulizer solution 2.5 mg 2.5 mg, nebulization, Every 4 hours PRN, wheezing, Starting on Sun09/19/23 at 1707 amiodarone tablet 200 mg (PACERONE) 200 mg, oral, 2 times daily, First dose on Sun09/26/23 at 0900, For 4 days Given 09/26/2023 7:57 AM [employer] 200 mg amiodarone tablet 200 mg (PACERONE) 200 mg, oral, Daily, First dose on Sun09/30/23 at 0900, For 30 days amiodarone tablet 400 mg (PACERONE) 400 mg, oral, 2 times daily, First dose on [facility] 09/22/23 at 1245, For 4 days Given 09/25/2023 8:17 PM [employer] 400 mg Given 09/25/2023 8:04 AM [employer] 400 mg Given 09/24/2023 8:33 PM [employer] 400 mg aspirin chewable tablet 81 mg 81 mg, oral, Daily, First dose on [facility] 09/20/23 at 0900 Given 09/26/2023 8:00 AM [employer] 81 mg Given 09/25/2023 8:04 AM [employer] 81 mg Given 09/24/2023 8:39 AM [employer] 81 mg atorvastatin tablet 80 mg (LIPITOR) 80 mg, oral, Daily at bedtime, First dose on Sun09/19/23 at 2100 Given 09/25/2023 8:17 PM [employer] 80 mg Given 09/24/2023 8:34 PM [employer] 80 mg Given 09/23/2023 9:57 PM [employer] 80 mg baclofen tablet 2.5 mg (LIORESAL) 2.5 mg, oral, Once as needed, muscle spasms, hiccups, Starting on Sun09/23/23 at 1638, For 1 dose Given 09/23/2023 9:57 PM [employer] 2.5 mg baclofen tablet 2.5 mg (LIORESAL) 2.5 mg, oral, 3 times daily PRN, muscle spasms, hiccups, Starting on Sun09/24/23 at 0950 Given 09/24/2023 3:45 PM [employer] 2.5 mg benzocaine-menthoL 15-3.6 mg per lozenge 1 lozenge (CEPACOL) 1 lozenge, oral, As needed, sore throat, Starting on Sun09/19/23 at 1707 bisacodyL suppository 10 mg (DULCOLAX) 10 mg, rectal, Daily PRN, constipation, Starting on Sun09/19/23 at 1707, If no bowel movement for 72 hours. Hold for loose stool. ceFAZolin in dextrose (iso osm) IVPB 2 g (ANCEF) 2 g, intravenous, at 200 mL/hr, Administer over 30 Minutes, Every 8 hours, First dose on Sun09/19/23 at 2330, For 4 doses, Start within 8 hours of last IV dose., Drug Monitoring Program: Pharmacist to adjust medication dosing based on indication and drug clearance factors., Indications: Prophylaxis, surgical New Bag 09/20/2023 11:13 PM [employer] 2 g 200 mL/h r New Bag 09/20/2023 2:59 PM [employer] 2 g 200 mL/hr New Bag 09/20/2023 6:30 AM [employer] 2 g 200 mL/hr clevidipine 0.5 mg/mL infusion (CLEVIPREX) 0-21 mg/hr (0-42 mL/hr), intravenous, Continuous, Starting on Sun09/19/23 at 2115, 1-2 mg/hr dose increases yield approximately 2-4 mmHg systolic blood pressure reduction. Once goal is achieved and no longer titrating, monitor per unit routine. 25 mg in 50 mL DO NOT RETURN TO REFRIGERATED STORAGE AFTER BEGINNING ROOM TEMPERATURE STORAGE, Initiate at: 1 mg/hr, Titrate at: 2 mg/hr. every 5-15 min., Goal: MAP 65-75, Wean at: 1 mg/hr. every 5-15 min. Rate/Dose Change 09/20/2023 10:16 PM [employer] 2 mg/hr 4 mL/hr Rate/Dose Change 09/20/2023 10:09 PM [employer] 3 mg/hr 6 mL/h r Rate/Dose Verify 09/20/2023 9:00 PM [employer] 2 mg/hr 4 mL/hr EPINEPHrine 16 mcg/mL in NaCl 0.9% mL 250 mL infusion (ADRENALIN) 0.01 mcg/kg/min ? 85.8 kg Dosing weight (3.2175 mL/hr, rounded to 3.22 mL/hr), intravenous, Continuous, Starting on Sun09/19/23 at 1745, Protect from light and avoid extravasation, Patient Type: Do Not Titrate Rate/Dose Verify 09/19/2023 8:00 PM [employer] 0.01 mcg/kg/min 3.22 mL/hr Rate/Dose Change 09/19/2023 7:07 PM [employer] 0.01 mcg/kg/min 3. 22 mL/hr Rate/Dose Verify 09/19/2023 7:00 PM [employer] 0.02 mcg/kg/min 6. 44 mL/hr finasteride tablet 5 mg (PROSCAR) 5 mg, oral, Daily, First dose on Sun09/21/23 at 0900, Hold with indwelling urinary catheter See tube feeding guidelines for tube feeding administration instructions. Given 09/26/2023 8:00 AM [employer] 5 mg Given 09/25/2023 8:07 AM [employer] 5 mg Given 09/24/2023 8:39 AM [employer] 5 mg furosemide injection 20 mg (LASIX) 20 mg, intravenous, Once, On [facility] 09/20/23 at 0845, For 1 dose, Adults: Doses less than 120 mg: IV push over 20 mg/minute. Doses 120 mg or greater: IVPB at 4 mg/minute. Peds/Neonates: Doses less than 120 mg over 0.5 mg/kg/minute. Doses 120 mg or greater: IVPB at 4 mg/minute. Given 09/20/2023 8:41 AM [employer] 20 mg furosemide injection 20 mg (LASIX) 20 mg, intravenous, 2 times daily, First dose on Sun09/24/23 at 0945, Adults: Doses less than 120 mg: IV push over 20 mg/minute. Doses 120 mg or greater: IVPB at 4 mg/minute. Peds/Neonates: Doses less than 120 mg over 0.5 mg/kg/minute. Doses 120 mg or greater: IVPB at 4 mg/minute. Given 09/24/2023 10:23 AM [employer] 20 mg furosemide injection 40 mg (LASIX) 40 mg, intravenous, Once, On [facility] 09/20/23 at 1345, For 1 dose, Adults: Doses less than 120 mg: IV push over 20 mg/minute. Doses 120 mg or greater: IVPB at 4 mg/minute. Peds/Neonates: Doses less than 120 mg over 0.5 mg/kg/minute. Doses 120 mg or greater: IVPB at 4 mg/minute. Given 09/20/2023 1:31 PM [employer] 40 mg furosemide injection 40 mg (LASIX) 40 mg, intravenous, Once, On [facility] 09/20/23 at 1800, For 1 dose, Adults: Doses less than 120 mg: IV push over 20 mg/minute. Doses 120 mg or greater: IVPB at 4 mg/minute. Peds/Neonates: Doses less than 120 mg over 0.5 mg/kg/minute. Doses 120 mg or greater: IVPB at 4 mg/minute. Given 09/20/2023 6:00 PM [employer] 40 mg furosemide injection 40 mg (LASIX) 40 mg, intravenous, Every 12 hours, First dose on Sun09/21/23 at 0500, Adults: Doses less than 120 mg: IV push over 20 mg/minute. Doses 120 mg or greater: IVPB at 4 mg/minute. Peds/Neonates: Doses less than 120 mg over 0.5 mg/kg/minute. Doses 120 mg or greater: IVPB at 4 mg/minute. Given 09/21/2023 5:20 AM [employer] 40 mg furosemide injection 40 mg (LASIX) 40 mg, intravenous, Every 24 hours scheduled, First dose (after last modification) on Sun09/21/23 at 0900, Adults: Doses less than 120 mg: IV push over 20 mg/minute. Doses 120 mg or greater: IVPB at 4 mg/minute. Peds/Neonates: Doses less than 120 mg over 0.5 mg/kg/minute. Doses 120 mg or greater: IVPB at 4 mg/minute. Given 09/22/2023 9:39 AM [employer] 40 mg Given 09/21/2023 8:36 AM [employer] 40 mg furosemide injection 40 mg (LASIX) 40 mg, intravenous, 2 times daily, First dose (after last modification) on Sun09/24/23 at 1415, Adults: Doses less than 120 mg: IV push over 20 mg/minute. Doses 120 mg or greater: IVPB at 4 mg/minute. Peds/Neonates: Doses less than 120 mg over 0.5 mg/kg/minute. Doses 120 mg or greater: IVPB at 4 mg/minute. Given 09/25/2023 8:03 AM [employer] 40 mg Given 09/24/2023 3:45 PM [employer] 40 mg furosemide tablet 20 mg (LASIX) 20 mg, oral, Daily, First dose on Sun09/26/23 at 0900 Given 09/26/2023 8:01 AM [employer] 20 mg furosemide tablet 40 mg (LASIX) 40 mg, oral, 2 times daily, First dose on 09/22/23 at 1700, On hold since 09/23/2023 at 1529 until manually unheld Given 09/23/2023 8:55 AM [employer] 40 mg Given 09/22/2023 5:36 PM [employer] 40 mg heparin (porcine) injection 5,000 Units 5,000 Units, subcutaneous, Every 8 hours scheduled, First dose on Sun09/20/23 at 0600 Given 09/23/2023 2:20 PM [employer] 5,000 Units Left Upper Arm (Back ) Given 09/23/2023 6:04 AM [employer] 5,000 Units L eft Upper Arm (Back) Given 09/22/2023 9:42 PM [employer] 5,000 Units R ight Upper Arm (Back) HYDROmorphone (PF) injection 0.2 mg (DILAUDID) 0.2 mg, intravenous, Every 1 hour PRN, moderate pain or score 4-6 of 10, severe pain or score 7-10 of 10, Starting on Sun09/21/23 at 2001, up to a total of 2 mg, Indications: Acute Pain insulin aspart U-100 injection 0-13 Units (NovoLOG FlexPen) 0-13 Units, subcutaneous, 3 times daily, First dose on Sun09/20/23 at 1700, Insulin Scale: Moderate Correction Scale, 140 - 179: 2 units, 180 - 219: 4 units, 220 - 259: 6 units, 260 - 299: 8 units, 300 - 339: 10 units, 340 - 379: 12 units, 380 - 399: 13 units, Greater than 399: Call service writing Insulin orders Given 09/26/2023 11:39 AM [employer] 4 Units Left Upper Arm (Back ) Given 09/26/2023 7:59 AM [employer] 2 Units Le ft Upper Arm (Back) Given 09/25/2023 5:42 PM [employer] 4 Units Le ft Upper Arm (Back) insulin regular 1 Unit/mL in NaCl 0.9% 100 mL infusion 0-25 Units/hr (0-25 mL/hr), intravenous, Continuous Infusion: Per Instructions PRN, Initiate infusion for glucose greater than 180 mg/dL, Starting on Sun09/19/23 at 1009, NOTIFY PRESCRIBER IF: Glucose is not within target range after 4 hours of IV insulin infusion. Patient starts eating. (50% of clear liquid diet or more) Patient starts bolus tube feedings. The insulin infusion has been either 0 to 1 unit/hour for 3 consecutive hours to consider orders to transition from IV to SQ long acting insulin. Infuse insulin into an existing line of a compatible IV solution and Y site insulin infusion into existing line below the infusion pump. Insulin infusion and existing line of compatible IV solution should each run as a primary line on separate infusion pumps at the ordered infusion rates. If no compatible IV solutions are ordered, infuse into an existing line of 0.45% NaCL infusion at 20 ml/hr. 100 Units in 100 mL, Calculator: Goal Range: 140-180 mg/dl, Starting Insulin Infusion Factor: 0.03 Rate/Dose Change 09/20/2023 1:18 AM [employer] 0 Units/hr 0 mL/hr Rate/Dose Change 09/20/2023 12:02 AM [employer] 0 Units/hr 0 mL/h r Rate/Dose Verify 09/20/2023 12:01 AM [employer] 3.5 Units/hr 3.5 mL/hr ipratropium-albuteroL 0.5-2.5 mg/3 mL nebulizer solution 3 mL (DUONEB) 3 mL, nebulization, 3 times daily, First dose on 09/24/23 at 1015 Given 09/25/2023 8:05 AM [employer] 3 mL Given 09/24/2023 8:34 PM [employer] 3 mL Given 09/24/2023 10:23 AM [employer] 3 mL Lactated Ringer's bolus 250 mL 250 mL, intravenous, at 250 mL/hr, Administer over 1 Hours, Once, On [facility] 09/20/23 at 0530, For 1 dose New Bag 09/20/2023 5:29 AM [employer] 250 mL 250 mL/hr Lactated Ringer's 0-20 mL/hr, intravenous, Continuous, Starting on Sun09/19/23 at 1730 Rate/Dose Change 09/21/2023 7:02 AM [employer] 0 mL/hr 0 mL/hr Rate/Dose Verify 09/20/2023 7:00 AM [employer] 20 mL/hr 20 mL/h r Rate/Dose Verify 09/20/2023 6:00 AM [employer] 20 mL/hr 20 mL/h r lactulose solution 20 g (CHRONULAC) 20 g, oral, 3 times daily PRN, constipation, Starting on Sun09/19/23 at 1707, If no result from bisacodyl suppository. Hold for loose stool. lidocaine 5 % 1 patch (LIDODERM) 1 patch, transdermal, Administer over 12 Hours, Daily PRN, incisional pain unrelieved by oral analgesics, Starting on Sun09/19/23 at 1707, Keep patch on for 12 hours and remove for 12 hours Medication Applied 09/20/2023 1:42 AM [employer] 1 patch Chest magnesium sulfate in water IVPB 2 g 2 g, intravenous, at 25 mL/hr, Administer over 120 Minutes, Once, On Sun09/19/23 at 1730, For 1 dose New Bag 09/19/2023 5:47 PM [employer] 2 g 25 mL/hr melatonin tablet 10 mg 10 mg, oral, Bedtime PRN, sleep, Starting on Sun09/20/23 at 2007 Given 09/20/2023 8:44 PM [employer] 10 mg metoclopramide tablet 5 mg (REGLAN) 5 mg, oral, Every 8 hours PRN, hiccups, Starting on Sun09/25/23 at 1053 metoprolol tablet 12.5 mg (LOPRESSOR) 12.5 mg, oral, 2 times daily, First dose on Sun09/20/23 at 0945 Given 09/20/2023 9:41 AM [employer] 12.5 mg metoprolol tartrate tablet 25 mg (LOPRESSOR) 25 mg, oral, 2 times daily, First dose (after last modification) on Sun09/20/23 at 2100 Given 09/26/2023 8:00 AM [employer] 25 mg Given 09/25/2023 8:17 PM [employer] 25 mg Given 09/25/2023 8:04 AM [employer] 25 mg mupirocin 2 % ointment 1 Application (BACTROBAN) 1 Application, each nostril, 2 times daily, First dose on Sun09/19/23 at 2100, For 6 doses, Instill 0.5 gram (1 application) into each nostril. Massage nares for one minute after instilling the ointment. If patient has completed a 5 day course prior to surgery, discontinue mupirocin. Given 09/22/2023 9:39 AM [employer] 1 Applicatio n Given 09/21/2023 8:28 PM [employer] 1 Application Given 09/21/2023 8:37 AM [employer] 1 Application NaCl 0.9% infusion 3-9 mL/hr, intravenous, Continuous, Starting on Sun09/19/23 at 1930, Hemodynamic Monitoring Lines: catheter lumen of central venous catheter (CVC) and Arterial lines for Intensive Care Units (ICU), Progressive Care Unit (PCU) and Telemetry units. Rate/Dose Verify 09/21/2023 9:00 AM [employer] 3 mL/hr 3 mL/hr Rate/Dose Verify 09/21/2023 8:00 AM [employer] 3 mL/hr 3 mL/hr Rate/Dose Verify 09/21/2023 7:00 AM [employer] 3 mL/hr 3 mL/hr naloxone injection 0.2 mg (NARCAN) 0.2 mg, intravenous, As needed, respiratory depression, Starting on Sun09/19/23 at 1707, For RASS Score -4 or less, respiratory rate of less than 8 breaths/min. Notify provider/service and rapid response team (if available at institution). norepinephrine 16 mcg/mL in D5W 250 mL infusion 0-0.08 mcg/kg/min ? 85.8 kg Dosing weight (0-25.74 mL/hr), intravenous, Continuous, Starting on Sun09/19/23 at 1745, Protect from light and avoid extravasation, Patient Type: Cardiovascular Surgery, Initiate at: 0.01 mcg/kg/min., Titrate at: 0.01 mcg/kg/min. every 5 min., Goal: Other, Goal: MAP >65 Rate/Dose Verify 09/19/2023 7:00 PM [employer] 0.01 mcg/kg/min 3.22 mL/hr Rate/Dose Change 09/19/2023 6:34 PM [employer] 0.01 mcg/kg/min 3. 22 mL/hr Rate/Dose Change 09/19/2023 6:04 PM [employer] 0.03 mcg/kg/min 9. 65 mL/hr oxyCODONE IR tablet 10 mg (ROXICODONE) 10 mg, oral, Every 4 hours PRN, severe pain or score 7-10 of 10, Starting on Sun09/19/23 at 1707, Patient is able to take oral medications. Given 09/20/2023 1:42 AM [employer] 10 mg oxyCODONE IR tablet 5 mg (ROXICODONE) 5 mg, oral, Every 4 hours PRN, moderate pain or score 4-6 of 10, Starting on Sun09/19/23 at 1707, Patient is able to take oral medications. pantoprazole DR tablet 40 mg (PROTONIX) 40 mg, oral, Daily, First dose on [facility] 09/20/23 at 0700, Swallow whole. Do NOT crush, chew, or split tablet. Given 09/26/2023 6:59 AM [employer] 40 mg Given 09/25/2023 6:54 AM [employer] 40 mg Given 09/24/2023 5:23 AM [employer] 40 mg polyethylene glycol powder packet 17 g (MIRALAX) 17 g, oral, Daily, First dose (after last modification) on [facility] 09/20/23 at 0900, If no bowel movement for 48 hours. Hold for loose stool. Avoid mixing with starch-based thickened liquids. Given 09/20/2023 8:02 AM [employer] 17 g polyethylene glycol powder packet 17 g (MIRALAX) 17 g, oral, 2 times daily, First dose (after last modification) on [facility] 09/20/23 at 2100, If no bowel movement for 48 hours. Hold for loose stool. Avoid mixing with starch-based thickened liquids. Given 09/22/2023 9:39 AM [employer] 17 g Given 09/21/2023 8:28 PM [employer] 17 g Given 09/21/2023 8:36 AM [employer] 17 g polyethylene glycol powder packet 17 g (MIRALAX) 17 g, oral, Daily PRN, constipation, Starting on Sun09/23/23 at 1730, If no bowel movement for 48 hours. Hold for loose stool. Avoid mixing with starch-based thickened liquids. propofol 10 mg/mL infusion (DIPRIVAN) 5-80 mcg/kg/min ? 85.8 kg Dosing weight (2.574-41.184 mL/hr, rounded to 2.57-41.18 mL/hr), intravenous, Continuous, Starting on Sun09/19/23 at 1745, Type: Titrate, Initiate at: 5 mcg/kg/min., Titrate at: 5 mcg/kg/min. every 5 min., Goal: For sedation - refer to titratable arousal order for RASS goal New Bag 09/19/2023 6:37 PM [employer] 40 mcg/kg/min 20.6 mL/hr Rate/Dose Verify 09/19/2023 6:00 PM [employer] 40 mcg/kg/min 20.6 mL/hr New Bag 09/19/2023 5:37 PM [employer] 40 mcg/kg/min 20.6 mL/hr rOPINIRole tablet 0.5 mg (REQUIP) 0.5 mg, oral, 3 times daily, First dose (after last modification) on Sun09/20/23 at 1400, For restless legs Given 09/26/2023 1:19 PM [employer] 0.5 mg Given 09/26/2023 7:58 AM [employer] 0.5 mg Given 09/25/2023 8:17 PM [employer] 0.5 mg sennosides-docusate sodium 8.6-50 mg per tablet 2 tablet (SENOKOT-S) 2 tablet, oral, 2 times daily, First dose on Sun09/19/23 at 2100, Hold for loose stool Given 09/23/2023 8:54 AM [employer] 2 tablets Given 09/22/2023 9:39 AM [employer] 2 tablets Given 09/21/2023 8:28 PM [employer] 2 tablets sennosides-docusate sodium 8.6-50 mg per tablet 2 tablet (SENOKOT-S) 2 tablet, oral, Daily at bedtime, First dose (after last modification) on Sun09/24/23 at 2100, Hold for loose stool simethicone chewable tablet 125 mg (MYLICON) 125 mg, oral, Every 6 hours PRN, flatulence, Starting on Sun09/19/23 at 1707 Given 09/20/2023 8:03 AM [employer] 125 mg sodium bicarbonate injection 100 mEq 100 mEq, intravenous, Once, On Sun09/19/23 at 2030, For 1 dose Given 09/19/2023 8:27 PM [employer] 100 mEq sodium zirconium cyclosilicate 5 gram packet 5 g (LOKELMA) 5 g, oral, Once, On Sun09/20/23 at 1930, For 1 dose, Empty packet into glass containing at least 3 tablespoons water, stir well and drink immediately. If powder remains in glass, add water, stir and drink immediately. Repeat if necessary., Restriction Criteria (Pharmacy will review and approve if criteria met): Single dose for symptomatic hyperkalemia Given 09/20/2023 7:44 PM [employer] 5 g tamsulosin 24 hr capsule 0.4 mg (FLOMAX) 0.4 mg, oral, Daily, First dose on Sun09/21/23 at 0900, Hold if indwelling urinary catheter in place Swallow whole. Do NOT crush, chew or open capsule. Given 09/26/2023 8:00 AM [employer] 0.4 mg Given 09/25/2023 8:04 AM [employer] 0.4 mg Given 09/24/2023 8:39 AM [employer] 0.4 mg tranexamic acid 8 mg/mL in NaCl 0.9% 250 mL infusion (CYKLOKAPRON) 1.5 mg/kg/hr ? 87.2 kg (16.35 mL/hr, rounded to 16.4 mL/hr), intravenous, Continuous, Starting on Sun09/19/23 at 0645 Restarted 09/19/2023 5:19 PM [employer] 2 mg/kg/hr 21.8 mL/hr Rate/Dose Change 09/19/2023 5:16 PM [employer] 2 mg/kg/hr 21.8 mL /hr New Bag 09/19/2023 9:26 AM [employer] 1.5 mg/kg/hr 16.35 mL/hr warfarin management (COUMADIN) oral, Daily, First dose on Sun09/21/23 at 0745, Pharmacist to Dose: Yes, Target INR: 2 - 3, Comorbidities that constitute Warfarin Sensitivity: Post-cardiac valve surgery, Indication: Aortic valve - Mechanical, Therapy type: New Warfarin therapy warfarin tablet 0.5 mg (COUMADIN) 0.5 mg, oral, Once, On Sun09/24/23 at 1700, For 1 dose, HAZARDOUS - Handle with care. Swallow whole. Do NOT chew or split tablet. May crush using the RxCrush system. Given 09/24/2023 4:36 PM [employer] 0.5 mg warfarin tablet 1 mg (COUMADIN) 1 mg, oral, Once, On Sun09/25/23 at 1700, For 1 dose, HAZARDOUS - Handle with care. Swallow whole. Do NOT chew or split tablet. May crush using the RxCrush system. Given 09/25/2023 5:34 PM [employer] 1 mg warfarin tablet 2 mg (COUMADIN) 2 mg, oral, Once, On Sun09/21/23 at 1700, For 1 dose, HAZARDOUS - Handle with care. Swallow whole. Do NOT chew or split tablet. May crush using the RxCrush system. Given 09/21/2023 6:39 PM [employer] 2 mg warfarin tablet 2 mg (COUMADIN) 2 mg, oral, Once, On 09/22/23 at 1700, For 1 dose, HAZARDOUS - Handle with care. Swallow whole. Do NOT chew or split tablet. May crush using the RxCrush system. Given 09/22/2023 5:36 PM [employer] 2 mg documented in this encounter Active and Recently Administered Medications Times are shown in [employer]. Scheduled Medication Order 09/24/2023 09/25/2023 09/26/2023 acetaminophen tablet 1,000 mg (TYLENOL)(Linked Group 1) 1,000 mg, oral, Every 6 hours, First dose (after last modification) on Sun09/21/23 at 1800 0141 (Given - Provider: Liliana Galindo RJarrettN.)0838 (Given - Provider: Radha Lara R.N.)1545 (Given - Provider: Amita Mercado R.N.)2034 (Given - Provider: Ar Mills R.N.) 0548 (Given - Provider: Ar Mills R.N.)1349 (Given - Provider: Kelsey Downing R.N.)1734 (Given - Provider: Kelsey Downing R.N.) 0055 (Given - Provider: Alireza Stahl RJarrettN.)0659 (Given - Provider: Ar Mills R.N.)1139 (Given - Provider: Valorie Osman RJarrettN.) amiodarone tablet 200 mg (PACERONE)(Linked Group 2) 200 mg, oral, 2 times daily, First dose on Sun09/26/23 at 0900, For 4 days 0757 (Given - Provider: Radha Lara R.N.) amiodarone tablet 200 mg (PACERONE)(Linked Group 2) 200 mg, oral, Daily, First dose on Sun09/30/23 at 0900, For 30 days amiodarone tablet 400 mg (PACERONE) (COMPLETED)(Linked Group 2) 400 mg, oral, 2 times daily, First dose on 09/22/23 at 1245, For 4 days 0839 (Given - Provider: Radha Lara R.N.)2032 (Given - Provider: Ar Mills R.N.) 08 (Given - Provider: Kelsey Downing R.N.)2016 (Given - Provider: Ar Mills R.N.) aspirin chewable tablet 81 mg 81 mg, oral, Daily, First dose on [facility] 09/20/23 at 0900 0839 (Given - Provider: Radha Lara R.N.) 0804 (Given - Provider: Kelsey Downing R.N.) 0800 (Given - Provider: Radha Lara R.N.) atorvastatin tablet 80 mg (LIPITOR) 80 mg, oral, Daily at bedtime, First dose on Sun09/19/23 at 2100 2033 (Given - Provider: Ar Mills R.N.) 2016 (Given - Provider: Ar Mills R.N.) finasteride tablet 5 mg (PROSCAR) 5 mg, oral, Daily, First dose on Sun09/21/23 at 0900, Hold with indwelling urinary catheter See tube feeding guidelines for tube feeding administration instructions. 0839 (Given - Provider: Radha Lara R.N.) 0807 (Given - Provider: Kelsey Downing R.N.) 0800 (Given - Provider: Radha Lara R.N.) furosemide injection 20 mg (LASIX) (CANCELED) 20 mg, intravenous, 2 times daily, First dose on Sun09/24/23 at 0945, Adults: Doses less than 120 mg: IV push over 20 mg/minute. Doses 120 mg or greater: IVPB at 4 mg/minute. Peds/Neonates: Doses less than 120 mg over 0.5 mg/kg/minute. Doses 120 mg or greater: IVPB at 4 mg/minute. 1023 (Given - Provider: Radha Lara R.N.) furosemide injection 40 mg (LASIX) (CANCELED) 40 mg, intravenous, 2 times daily, First dose (after last modification) on Sun09/24/23 at 1415, Adults: Doses less than 120 mg: IV push over 20 mg/minute. Doses 120 mg or greater: IVPB at 4 mg/minute. Peds/Neonates: Doses less than 120 mg over 0.5 mg/kg/minute. Doses 120 mg or greater: IVPB at 4 mg/minute. 1545 (Given - Provider: Amita Mercado R.N.) 0803 (Given - Provider: Kelsey Downing R.N.) furosemide tablet 20 mg (LASIX) 20 mg, oral, Daily, First dose on Sun09/26/23 at 0900 0801 (Given - Provider: Felipe GuadarramaNJarrett) insulin aspart U-100 injection 0-13 Units (NovoLOG FlexPen) 0-13 Units, subcutaneous, 3 times daily, First dose on Sun09/20/23 at 1700, Insulin Scale: Moderate Correction Scale, 140 - 179: 2 units, 180 - 219: 4 units, 220 - 259: 6 units, 260 - 299: 8 units, 300 - 339: 10 units, 340 - 379: 12 units, 380 - 399: 13 units, Greater than 399: Call service writing Insulin orders 0729 (Not Given - Provider: Radha Lara R.N. - Reason: Order parameters not met)1246 (Given - Provider: Radha Lara R.N.)1645 (Given - Provider: Erica Butler RSammi - Comment: Blood sugar of 221 mg/dl) 0811 (Given - Provider: Kelsey Downing R.N.)1354 (Given - Provider: Kelsey Downing R.N.)1742 (Given - Provider: Kelsey Downing R.N.) 0759 (Given - Provider: Ryan Guadarrama.N.)1139 (Given - Provider: Valorie Osman RJarrettNJarrett) ipratropium-albuteroL 0.5-2.5 mg/3 mL nebulizer solution 3 mL (DUONEB) 3 mL, nebulization, 3 times daily, First dose on Sun09/24/23 at 1015 1023 (Given - Provider: Radha Lara RMihir.)2034 (Given - Provider: Ar Mills R.N.) 0805 (Given - Provider: Kelsey Downing R.N.)1351 (Not Given - Provider: Kelsey Downing R.N. - Reason: Other)2016 (Not Given - Provider: Ar Mills R.N. - Reason: Patient/family refused) 0801 (Not Given - Provider: Radha Lara R.N. - Reason: Patient/family refused)1316 (Not Given - Provider: Valorie Osman R.N. - Reason: Patient/family refused) metoprolol tartrate tablet 25 mg (LOPRESSOR) 25 mg, oral, 2 times daily, First dose (after last modification) on Sun09/20/23 at 2100 0839 (Given - Provider: Radha Lara R.N.)2034 (Given - Provider: Ar Mills R.N.) 0804 (Given - Provider: Kelsey Downing R.N.)2016 (Given - Provider: Ar Mills R.N.) 0800 (Given - Provider: Radha Lara R.N.) pantoprazole DR tablet 40 mg (PROTONIX)(Linked Group 3) 40 mg, oral, Daily, First dose on Sun09/20/23 at 0700, Swallow whole. Do NOT crush, chew, or split tablet. 0523 (Given - Provider: Liliana Galindo R.N.) 0654 (Given - Provider: Ar Mills R.N.) 0659 (Given - Provider: Ar Mills R.N.) rOPINIRole tablet 0.5 mg (REQUIP) 0.5 mg, oral, 3 times daily, First dose (after last modification) on Sun09/20/23 at 1400, For restless legs 0839 (Given - Provider: Radha Lara R.N.)1545 (Given - Provider: Amita Mercado R.N.)2034 (Given - Provider: Ar Mills R.N.) 0804 (Given - Provider: Kelsey Downing R.N.)135 (Given - Provider: Kelsey Downing R.N.)2017 (Given - Provider: Ar Mills R.N.) 0758 (Given - Provider: Radha Lara R.N.)1319 (Given - Provider: Valorie Osman R.N.) sennosides-docusate sodium 8.6-50 mg per tablet 2 tablet (SENOKOT-S)(Linked Group 4) 2 tablet, oral, Daily at bedtime, First dose (after last modification) on Sun09/24/23 at 2100, Hold for loose stool 2032 (Not Given - Provider: Ar Mills R.N. - Reason: Patient/family refused) 2016 (Not Given - Provider: Ar Mills R.N. - Reason: Patient/family refused) tamsulosin 24 hr capsule 0.4 mg (FLOMAX) 0.4 mg, oral, Daily, First dose on Sun09/21/23 at 0900, Hold if indwelling urinary catheter in place Swallow whole. Do NOT crush, chew or open capsule. 0839 (Given - Provider: Radha Lara R.N.) 0804 (Given - Provider: Kelsey Downing R.N.) 0800 (Given - Provider: Radha Lara R.N.) warfarin management (COUMADIN) oral, Daily, First dose on Sun09/21/23 at 0745, Pharmacist to Dose: Yes, Target INR: 2 - 3, Comorbidities that constitute Warfarin Sensitivity: Post-cardiac valve surgery, Indication: Aortic valve - Mechanical, Therapy type: New Warfarin therapy 1700 (Due) 1700 (Due) warfarin tablet 0.5 mg (COUMADIN) (COMPLETED) 0.5 mg, oral, Once, On Sun09/24/23 at 1700, For 1 dose, HAZARDOUS - Handle with care. Swallow whole. Do NOT chew or split tablet. May crush using the RxCrush system. 1636 (Given - Provider: Erica Butler R.N.) warfarin tablet 1 mg (COUMADIN) (COMPLETED) 1 mg, oral, Once, On Sun09/25/23 at 1700, For 1 dose, HAZARDOUS - Handle with care. Swallow whole. Do NOT chew or split tablet. May crush using the RxCrush system. 1734 (Given - Provider: Kelsey Downing RJarrettNJarrett) PRN Medication Order 09/24/2023 09/25/2023 09/26/2023 albuterol nebulizer solution 2.5 mg 2.5 mg, nebulization, Every 4 hours PRN, wheezing, Starting on Sun09/19/23 at 1707 baclofen tablet 2.5 mg (LIORESAL) (CANCELED) 2.5 mg, oral, 3 times daily PRN, muscle spasms, hiccups, Starting on 09/24/23 at 0950 1545 (Given - Provider: Amita Mercado RJarrettNJarrett) benzocaine-menthoL 15-3.6 mg per lozenge 1 lozenge (CEPACOL) 1 lozenge, oral, As needed, sore throat, Starting on Sun09/19/23 at 1707 bisacodyL suppository 10 mg (DULCOLAX) 10 mg, rectal, Daily PRN, constipation, Starting on Sun09/19/23 at 1707, If no bowel movement for 72 hours. Hold for loose stool. HYDROmorphone (PF) injection 0.2 mg (DILAUDID) 0.2 mg, intravenous, Every 1 hour PRN, moderate pain or score 4-6 of 10, severe pain or score 7-10 of 10, Starting on Sun09/21/23 at 2001, up to a total of 2 mg, Indications: Acute Pain lactulose solution 20 g (CHRONULAC) 20 g, oral, 3 times daily PRN, constipation, Starting on Sun09/19/23 at 1707, If no result from bisacodyl suppository. Hold for loose stool. lidocaine 5 % 1 patch (LIDODERM) 1 patch, transdermal, Administer over 12 Hours, Daily PRN, incisional pain unrelieved by oral analgesics, Starting on Sun09/19/23 at 1707, Keep patch on for 12 hours and remove for 12 hours melatonin tablet 10 mg 10 mg, oral, Bedtime PRN, sleep, Starting on Carissa 09/20/23 at 2007 metoclopramide tablet 5 mg (REGLAN) 5 mg, oral, Every 8 hours PRN, hiccups, Starting on 09/25/23 at 1053 naloxone injection 0.2 mg (NARCAN) 0.2 mg, intravenous, As needed, respiratory depression, Starting on Sun09/19/23 at 1707, For RASS Score -4 or less, respiratory rate of less than 8 breaths/min. Notify provider/service and rapid response team (if available at institution). oxyCODONE IR tablet 10 mg (ROXICODONE)(Linked Group 5) 10 mg, oral, Every 4 hours PRN, severe pain or score 7-10 of 10, Starting on Sun09/19/23 at 1707, Patient is able to take oral medications. oxyCODONE IR tablet 5 mg (ROXICODONE)(Linked Group 5) 5 mg, oral, Every 4 hours PRN, moderate pain or score 4-6 of 10, Starting on Sun09/19/23 at 1707, Patient is able to take oral medications. polyethylene glycol powder packet 17 g (MIRALAX) 17 g, oral, Daily PRN, constipation, Starting on Sun09/23/23 at 1730, If no bowel movement for 48 hours. Hold for loose stool. Avoid mixing with starch-based thickened liquids. simethicone chewable tablet 125 mg (MYLICON) 125 mg, oral, Every 6 hours PRN, flatulence, Starting on Sun09/19/23 at 1707 Linked Groups Order Group 1: acetaminophen tablet 1,000 mg (TYLENOL)Jump to med 1,000 mg, oral, Every 6 hours, First dose (after last modification) on Sun09/21/23 at 1800 Group 2: amiodarone tablet 400 mg (PACERONE) (COMPLETED)Jump to med 400 mg, oral, 2 times daily, First dose on 09/22/23 at 1245, For 4 days Followed by amiodarone tablet 200 mg (PACERONE)Jump to med 200 mg, oral, 2 times daily, First dose on Sun09/26/23 at 0900, For 4 days Followed by amiodarone tablet 200 mg (PACERONE)Jump to med 200 mg, oral, Daily, First dose on 09/30/23 at 0900, For 30 days Group 3: pantoprazole injection 40 mg (PROTONIX) (CANCELED) 40 mg, intravenous, Daily, First dose on Carissa 09/20/23 at 0700, Change to PO once tolerating diet Administer IV push over 2 minutes. Add 10 mL NS to 40 mg vial for a final concentration of 4 mg/mL. Or pantoprazole DR tablet 40 mg (PROTONIX)Jump to med 40 mg, oral, Daily, First dose on Carissa 09/20/23 at 0700, Swallow whole. Do NOT crush, chew, or split tablet. Group 4: sennosides-docusate sodium 8.6-50 mg per tablet 2 tablet (SENOKOT-S)Jump to med 2 tablet, oral, Daily at bedtime, First dose (after last modification) on Sun09/24/23 at 2100, Hold for loose stool Group 5: oxyCODONE IR tablet 5 mg (ROXICODONE)Jump to med 5 mg, oral, Every 4 hours PRN, moderate pain or score 4-6 of 10, Starting on Sun09/19/23 at 1707, Patient is able to take oral medications. Or oxyCODONE IR tablet 10 mg (ROXICODONE)Jump to med 10 mg, oral, Every 4 hours PRN, severe pain or score 7-10 of 10, Starting on Sun09/19/23 at 1707, Patient is able to take oral medications. documented in this encounter Additional Health Concerns Assessment Noted Time PHQ-9 Depression Total Score: 1 09/10/20 2:06 PM CDT documented as of this encounter Care Teams Freelance Court Reporter Relationship Specialty Start Date End Date Elsewhere, Pcp PCP - General Internal Medicine 08/19/23 09/27/23 documented as of this encounter
--- OUTSIDE RECORDS SUMMARY | 2023-12-04 12:15 | XMS_ITS | Encounter Summary ---
Author Name Unknown Organization [facility] Address [address] [place] [address] Care Team Providers Care Spring Crater Name Role Phone Elsewhere, Pcp Primary Care Provider Unavailabl e Encounter Details Date Type Department Care Team (Latest Contact Info) Description 09/19/2023 7:00 AM PRESS WORKER HELPER Ancillary Procedure Department of Anesthesiology Social History Tobacco Use Types Packs/Day Years [...] your living situation today? I have a [facility] place to live 08/29/2023 Sex and Gender Information Value Date Recorded Sex Assigned at Male 08/29/2023 11:06 AM CDT Gender Identity Male 08/29/2023 11:06 AM CDT Sexual Orientation Straight 08/29/2023 11 :06 AM CDT documented as of this encounter Plan of Treatment Upcoming Encounters Date Type Department Care Team (Latest Contact Info) Description 12/21/2023 10:15 AM PRESS WORKER HELPER Clinical Communication Virtual Review in [place], [place] 200 [place] [address] 12/24/2023 2:00 PM PRESS WORKER HELPER Comprehensive Visit Department of Cardiovascular Medicine in [place], [place] [address] [place] [phone] Gudelia Soto M.D. [address] [place] [phone] 01/01/2024 3:45 PM PRESS WORKER HELPER Comprehensive Visit Division of Hematology in [place], [place] [address] [place] [phone] Billy Segal APRN, C.N.P., D.N.P. [address] [place] [phone] documented as of this encounter Procedures Procedure Name Priority Date/Time Associated Diagnosis Comments ANESTHESIOLOGY IMAGE EXAM Routine 09/19/2023 7:00 AM PRESS WORKER HELPER documented in this encounter Results * Non-Radiology Image-Anesthesiology Image Exam (09/19/2023 7:00 AM PRESS WORKER HELPER) 09/19/2023 7:00 AM PRESS WORKER HELPER Narrative IIMS - 09/19/2023 8:29 AM PRESS WORKER HELPER This order has been created and auto-finalized to support the import of images acquired without order. The clinical documentation to support these images can be found on the encounter that produced images. Provider Not In System IMG NON RAD IMAGI NG PROCEDURES IIMS NA documented in this encounter Visit Diagnoses Not on filedocumented in this encounter Additional Health Concerns Assessment Noted Time PHQ-9 Depression Total Score: 1 09/10/20 23 2:06 PM CDT documented as of this encounter Care Teams Spring Crater Relationship Specialty Start Date End Date Elsewhere, Pcp PCP - General Internal Medicine 08/19/23 09/27/23 documented as of this encounter
--- OUTSIDE RECORDS SUMMARY | 2023-12-04 12:15 | XMS_ITS | Encounter Summary ---
Author Name Unknown Organization [facility] Address [address] [place] [address] Care Team Providers Care Retail Associate Name Role Phone Kylah Crum M.D. Primary Care Provider [phone] Encounter Details Date Type Department Care Team (Late st Contact Info) Description 09/21/2023 Orders Only Preoperative Evaluation Center in [place], [place] [address] [place] [phone] Fanny Villalobos, PIERRE, C.N.P., D.N.P. [address] [place] [phone] Social History Tobacco Use Types Packs/Day Years [...] your living situation today? I have a [facility] place to live 08/29/2023 Sex and Gender Information Value Date Recorded Sex Assigned at Male 08/29/2023 11:06 AM CDT Gender Identity Male 08/29/2023 11:06 AM CDT Sexual Orientation Straight 08/29/2023 11 :06 AM CDT documented as of this encounter Plan of Treatment Upcoming Encounters Date Type Department Care Team (Latest Contact Info) Description 12/21/2023 10:15 AM COMMODITY MANAGEMENT SPECIALIST Clinical Communication Virtual Review in [place], [place] [address] [place] [address] 12/24/2023 2:00 PM COMMODITY MANAGEMENT SPECIALIST Comprehensive Visit Department of Cardiovascular Medicine in [place], [place] [address] [place] [address] [phone] Gudelia Soto M.D. [address] [place] [address] [phone] 01/01/2024 3:45 PM COMMODITY MANAGEMENT SPECIALIST Comprehensive Visit Division of Hematology in [place], [place] [address] [place] [phone] Billy Segal APRN, C.N.P., D.N.P. [address] [place] [phone] documented as of this encounter Visit Diagnoses Not on filedocumented in this encounter Additional Health Concerns Assessment Noted Time PHQ-9 Depression Total Score: 1 09/10/20 23 2:06 PM CDT documented as of this encounter Care Teams Retail Associate Relationship Specialty Start Date End Date Kylah Crum M.D. [address] [place] [phone] PCP - General Family Medicine 09/28/23 documented as of this encounter
--- OUTSIDE RECORDS SUMMARY | 2023-12-04 12:17 | XMS_ITS | Encounter Summary ---
Author Name Unknown Organization [facility] Address [address] [place] [address] Care Team Providers Care Cellophane Bath Mixer Name Role Phone Elsewhere, Pcp Primary Care Provider Unavailabl e Encounter Details Date Type Department Care Team (Late st Contact Info) Description 09/18/2023 9:00 AM TOWEL ROLLING MACHINE OPERATOR Education Department of Cardiovascular Surgery in [place], [place] [address] [place] [phone] Norman Roca, PIERRE, C.N.P., D.N.P. [address] [place] [phone] Dona Kong, R.N. [address] [place] [phone] Stenosis Aortic Valve Acquired; Acquired Aortic Valve Disorder Social History Tobacco Use Types Packs/Day Years [...] living situation today? I have a [facility] place to live 08/29/2023 Sex and Gender Information Value Date Recorded Sex Assigned at Male 08/29/2023 11:06 AM CDT Gender Identity Male 08/29/2023 11:06 AM CDT Sexual Orientation Straight 08/29/2023 11 :06 AM CDT documented as of this encounter Last Filed Vital Signs Vital Sign Reading Time Taken Comments Blood Pressure 143/81 09/18/2023 9:24 AM TOWEL ROLLING MACHINE OPERATOR Pulse 80 09/18/2023 9:24 AM TOWEL ROLLING MACHINE OPERATOR Temperature 36.6 ??C (97.8 ??F) 09/18/2023 9:24 AM CS T Respiratory Rate - - Oxygen Saturation 97% 09/18/2023 9:24 AM TOWEL ROLLING MACHINE OPERATOR Inhaled Oxygen Concentration - - Weight 85.6 kg (188 lb 13.2 oz) 09/18/2023 9:24 AM TOWEL ROLLING MACHINE OPERATOR Height 173.2 cm (5' 8.19) 09/18/2023 9:24 AM CS T Body Mass Index 28.55 09/18/2023 9:24 AM TOWEL ROLLING MACHINE OPERATOR documented in this encounter Progress Notes * Dona Kong R.N. - 09/18/2023 9:00 AM CST Mr. Jong Harris is a 73 y.o. male who was seen for pre-op education prior to surgery. Pre-op education and instructions were provided to Jong and his Lissy. They indicate understanding of all teaching at this time and all questions were answered. Visitor policy was discussed in detail with Jong and Lissy. They understand that there may be two persons allowed in the patient room at a time. They also understand that visiting hours are from 6:00 a.m. to 9:00 p.m. with no overnight visitors allowed. Visitors are aware masking is not mandatory except in immunocompromised units. Visitor policy is subject to change. Social Work: Pre-operatively the MYA-7 and PHQ9 scores were reviewed. MYA-7 score was 0 and PHQ-9 score was 1 and indicates no need for a social work consult at this time. PT/OT: Jong has not fallen in the past year. They scored [facility] Frailty Score (CFS): 3: Managing Well (medical problems are well controlled) on the Clinical Frailty Scale and this indicates noneed for a PT/OT consult at this time. 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 With ambulating he does have some weakness in his right leg/foot. He states that he does have some right foot drop with occasionally catching or dragging his toes/foot. I discussed plans for discharge with Jong. His is scheduled for a knee replacement surgery a week after his surgery. His son is recovering from heart surgery also. Depending on his needs, Jong is open to discharging to a facility if needed. Early Screen for Discharge Planning (ESDP) score was 9 and indicates a follow up after surgery, to determine if a care management consult is needed. Jong does not meet eligibility criteria for the Posthorax Vest. Jong is not identified as a candidate for Remote Patient Monitoring. Dona Kong R.N. L ROLLING MACHINE OPERATOR documented in this encounter Plan of Treatment Upcoming Encounters Date Type Department Care Team (Latest Contact Info) Description 12/21/2023 10:15 AM TOWEL ROLLING MACHINE OPERATOR Clinical Communication Virtual Review in [place], [place] 200 [place] [address] 12/24/2023 2:00 PM TOWEL ROLLING MACHINE OPERATOR Comprehensive Visit Department of Cardiovascular Medicine in [place], [place] [address] [place] [phone] Gudelia Soto M.D. [address] [place] [phone] 01/01/2024 3:45 PM TOWEL ROLLING MACHINE OPERATOR Comprehensive Visit Division of Hematology in [address] [phone] Billy Segal APRN, C.N.P., D.N.P. [address] [place] [phone] documented as of this encounter Visit Diagnoses Diagnosis Stenosis Aortic Valve Acquired Acquired Aortic Valve Disorder documented in this encounter Additional Health Concerns Assessment Noted Time PHQ-9 Depression Total Score: 1 09/10/20 2:06 PM CDT documented as of this encounter Care Teams Cellophane Bath Mixer Relationship Specialty Start Date End Date Elsewhere, Pcp PCP - General Internal Medicine 08/19/23 09/27/23 documented as of this encounter
--- OUTSIDE RECORDS SUMMARY | 2023-12-04 12:17 | XMS_ITS | Encounter Summary ---
Author Name Unknown Organization [facility] Address [address] [place] [phone] Care Team Providers Care Dry Mop Maker Name Role Phone Elsewhere, Pcp Primary Care Provider Unavailabl e Encounter Details Date Type Department Care Team (Latest Contact Info) Description 09/18/2023 9:45 AM STENCIL MACHINE OPERATOR Office Visit Department of Cardiovascular Surgery in [place], [place] [address] [place] [phone] Elvi Oliva, TIBURCIOS, P.A.-C. 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 I have a [facility] place to live 08/29/2023 Sex and Gender Information Value Date Recorded Sex Assigned at Male 08/29/2023 11:06 AM CDT Gender Identity Male 08/29/2023 11:06 AM CDT Sexual Orientation Straight 08/29/2023 11 :06 AM CDT documented as of this encounter H&P Notes * Elvi Lundberg, TIBURCIOS, P.A.-C. - 09/18/2023 9:45 AM CST Jong Harris : 1950 Visit Date: 09/18/23 REFERRING PHYSICIAN: No ref. provider found Home instrument adjuster: [facility] Home primary care provider: Dr. [place], [place] SUBJECTIVE CHIEF COMPLAINT / REASON FOR [...] 08/19/2023 for additional information. Patient presented to [place] ED for chest discomfort on 08/19/2023. Patient [...] CORONARY ANGIOGRAPHY; Surgeon: Ezequiel Jack M.D.; Location: [facility] Family History Problem Relation Age of Onset [...] Glomerular Filtration Rate (GFR) 30 To 44 ([facility]) #3 Hypertension Essential Primary #4 Atrial Fibrillation Paroxysmal ([facility]) #5 Hemiplegia Dominant Side Right ([facility]) #6 Anemia In Chronic Kidney Disease #7 Benign Prostatic Hyperplasia Without Obstruction #8 Diabetes Mellitus Type 2 ([facility]) #9 Hyperlipidemia On Treatment #10 Stroke Cerebrovascular [...] DM 2 For postoperative care: Consult social media marketer on the inpatient setting, patient's is having [...] [phone]) pamphlet; Your guide to Cardiac Surgery [id number]; Surgical Site Infection: Reducing Your Risk (MC 6471); Central Venous Catheter Infection: Reducing Your Risk ([id number]). Patient instructed to report to [facility] for Bactroban prescription. Application instructions provided. [...] of the patient today. Time includes both [id number] patient care. MADHAV Chong, P.A.-C. CIL MACHINE OPERATOR documented in this encounter Plan of Treatment Upcoming Encounters Date Type Department Care Team (Latest Contact Info) Description 12/21/2023 10:15 AM STENCIL MACHINE OPERATOR Clinical Communication Virtual Review in [place], [place] [address] [place] [address] 12/24/2023 2:00 PM STENCIL MACHINE OPERATOR Comprehensive Visit Department of Cardiovascular Medicine in [place], [place] [address] [place] [phone] Gudelia Soto M.D. [address] [place] [phone] 01/01/2024 3:45 PM STENCIL MACHINE OPERATOR Comprehensive Visit Division of Hematology in [place], [place] [address] [place] [phone] Billy Segal APRN, C.N.P., D.N.P. 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 Glomerular Filtration Rate (GFR) 30 To 44 (HCC) Hypertension Essential Primary Atrial Fibrillation Paroxysmal (HCC) Hemiplegia Dominant Side Right (HCC) Anemia In Chronic Kidney Disease Benign Prostatic Hyperplasia Without Obstruction Diabetes Mellitus Type 2 (HCC) Hyperlipidemia On Treatment Stroke Cerebrovascular Accident Personal History documented in this encounter Additional Health Concerns Assessment Noted Time PHQ-9 Depression Total Score: 1 09/10/20 2:06 PM CDT documented as of this encounter Care Teams Dry Mop Maker Relationship Specialty Start Date End Date Elsewhere, Pcp PCP - General Internal Medicine 08/19/23 09/27/23 documented as of this encounter
--- OUTSIDE RECORDS SUMMARY | 2023-12-04 12:17 | XMS_ITS | Encounter Summary ---
Author Name Unknown Organization [facility] Address [address] [place] [phone] Care Team Providers Care Catia Designer Name Role Phone Elsewhere, Pcp Primary Care Provider Unavailabl e Reason for Visit * Outpatient (Routine) - Closed Specialty Diagnoses / Procedures Referred By Sebas t Referred To Contact Pharmacy Diagnoses Stenosis Aortic Valve Acquired Acquired Aortic Valve Disorder Norman Roca APRN, C.N.P., D.N.P. [address] [place] [phone] [facility] Referral ID Status Reason Start Date Expiration Date Visits Re quested Visits Authorized [id number] Closed 09/05/2023 09/04/2024 1 1 Encounter Details Date Type Department Care Team (Late st Contact Info) Description 09/13/2023 12:40 PM CDT Virtual Visit Department of Pharmacy in [place], [place] [address] [place] [address] [phone] Norman Roca APRN, C.N.P., D.N.P. [address] [place] [phone] Gena May, Luis Carlos.D., R.Ph. [address] [place] [phone] Stenosis Aortic Valve Acquired; Acquired Aortic Valve [...] living situation today? I have a [facility] place to live 08/29/2023 Sex and Gender Information Value Date Recorded Sex Assigned at Male 08/29/2023 11:06 AM CDT Gender Identity Male 08/29/2023 11:06 AM CDT Sexual Orientation Straight 08/29/2023 11 :06 AM CDT documented as of this encounter Progress Notes * Gena May, Pharm.D., R.Ph. - 09/13/2023 12:40 PM CDT Images from the original note were not included. Patient was contacted via telephone to confirm current medication list. The medication list below was updated by a pharmacist and reflects the patient's medication list on the date of this note. Last dose dates/times that will need to be updated when patient is admitted for surgery: Aspirin metformin Modified Medications Sig acetaminophen (TYLENOL) 500 mg tablet Take 1,000 mg by mouth every 6 (six) hours as needed for pain. aspirin 81 mg chewable tablet Chew 1 tablet (81 mg total) daily. atorvastatin (LIPITOR) 80 mg tablet Take 1 tablet (80 mg total) by mouth at bedtime. cholecalciferol 10 mcg (400 Unit) tablet Take 10 mcg by mouth daily. cyanocobalamin 2,000 mcg tablet Take 2,000 mcg by mouth daily. ferrous sulfate 325 mg (65 mg iron) DR tablet Take 65 mg of iron by mouth daily. finasteride (PROSCAR) 5 mg tablet Take 5 mg by mouth daily. metFORMIN XR (GLUCOPHAGE-XR) 500 mg 24 hr tablet Take 1 tablet (500 mg total) by mouth 2 (two) times a day with meals. pantoprazole (PROTONIX) 40 mg EC tablet Take 1 tablet (40 mg total) by mouth every morning before breakfast. rOPINIRole (REQUIP) 0.5 mg tablet Take 0.5 mg by mouth 3 (three) times a day. tamsulosin (FLOMAX) 0.4 mg 24 hr capsule Take 0.4 mg by mouth at bedtime. Gena May Pharm.D., R.Ph. documented in this encounter Plan of Treatment Upcoming Encounters Date Type Department Care Team (Latest Contact Info) Description 12/21/2023 10:15 AM DISTRIBUTION SYSTEMS SUPERINTENDENT Clinical Communication Virtual Review in [place], [place] 200 [place] [address] 12/24/2023 2:00 PM DISTRIBUTION SYSTEMS SUPERINTENDENT Comprehensive Visit Department of Cardiovascular Medicine in [place], [place] [address] [place] [phone] Gudelia Soto M.D. [address] [place] [phone] 01/01/2024 3:45 PM DISTRIBUTION SYSTEMS SUPERINTENDENT Comprehensive Visit Division of Hematology in [place], [place] [address] [place] [phone] Billy Segal APRN, C.N.P., D.N.P. [address] [place] [phone] documented as of this encounter Visit Diagnoses Diagnosis Stenosis Aortic Valve Acquired Acquired Aortic Valve Disorder documented in this encounter Additional Health Concerns Assessment Noted Time PHQ-9 Depression Total Score: 1 09/10/20 2:06 PM CDT documented as of this encounter Care Teams Catia Designer Relationship Specialty Start Date End Date Elsewhere, Pcp PCP - General Internal Medicine 08/19/23 09/27/23 documented as of this encounter
--- OUTSIDE RECORDS SUMMARY | 2023-12-04 12:17 | XMS_ITS | Encounter Summary ---
Author Name Unknown Organization [facility] Address [address] [place] [address] Care Team Providers Care Marsh Buggy Operator Name Role Phone Elsewhere, Pcp Primary Care Provider Unavailabl e Encounter Details Date Type Department Care Team (Late st Contact Info) Description 09/05/2023 3:10 PM CDT Lab Department of Laboratory Medicine and Pathology, [facility], in [place], [place] [address] [place] [phone] Norman Roca, PIERRE, C.N.P., D.N.P. [address] [place] [phone] Stenosis Aortic Valve Acquired; Acquired Aortic Valve [...] PHQ-2 Answer Date Recorded PHQ-2 Score 0 08/20/2023 Exercise Vital Sign Answer Date Recorde d [...] Recor ded PHQ-9 Total Score (max 27) 0 08/20 Nutrition Answer Date Recorded Nutrition: EVOO Fat [...] your living situation today? I have a [facility] place to live 08/29/2023 Sex and Gender Information Value Date Recorded Sex Assigned at Male 08/29/2023 11:06 AM CDT Gender Identity Male 08/29/2023 11:06 AM CDT Sexual Orientation Straight 08/29/2023 11 :06 AM CDT documented as of this encounter Plan of Treatment Upcoming Encounters Date Type Department Care Team (Latest Contact Info) Description 12/21/2023 10:15 AM PROFESSIONAL FEE CODER Clinical Communication Virtual Review in [place], [place] [address] [place] [address] 12/24/2023 2:00 PM PROFESSIONAL FEE CODER Comprehensive Visit Department of Cardiovascular Medicine in [place], [place] [address] [place] [phone] Gudelia Soto M.D. [address] [place] [phone] 01/01/2024 3:45 PM PROFESSIONAL FEE CODER Comprehensive Visit Division of Hematology in [place], [place] [address] [place] [phone] Billy Segal APRN, C.N.P., D.N.P. [address] [place] [phone] documented as of this encounter Procedures Procedure Name Priority Date/Time Associated Diagnosis Comments RETICULOCYTE PROFILE, B Routine 09/05/2023 3:22 PM CDT CBC-PREOP WITH REFLEX ANEMIA PANEL Routine 09/05/2023 3:22 PM CDT Stenosis Aortic Valve Acquired Acquired Aortic Valve Disorder METHYLMALONIC ACID (MMA), ISELA, S Routine 09/05/2023 3:22 PM CDT IRON AND TOT IRON-BINDING CAPACITY, S/P Routine 09/05/2023 3:22 PM CDT C-REACTIVE PROTEIN (CRP), S/P Routine 09/05/2023 3:22 PM CDT FOLATE, S Routine 09/05/2023 3:22 PM CDT FERRITIN, S Routine 09/05/2023 3:22 PM CDT VITAMIN B12 ASSAY, S Routine 09/05/2023 3:22 PM CDT documented in this encounter Results * (ABNORMAL) Methylmalonic Acid (MMA), Quantitative (09/05/2023 [...] developed and its performance characteristics determined by [facility] in a manner consistent with CLIA requirements. This test has not been cleared or approved by the U.S. Food and Drug Administration. Blood 09/05/2023 3:22 PM CDT 09/06/2023 7:43 AM CDT Cata Mendez APRN.N.P., D.N.P. L AB BLOOD ADD-ON Performing Organization Address City/[facility] Co de Phone Number [facility] [address] [place] [address], [facility] DT 200 [place] [address] * (ABNORMAL) Iron and Total Iron-Binding Capacity [...] L AB BLOOD ADD-ON Performing Organization Address [facility] Co de Phone Number [facility] 200 [place] [address], [facility] 200 [place] [address] * Ferritin (09/05/2023 3:22 PM CDT) Ferritin, S 256 31 - 409 mcg/L 09/05/2023 4:04 PM CDT DTL Blood 09/05/2023 3:22 PM CDT 09/05/2023 3:41 PM CDT Cata Mendez APRN.N.P., D.N.P. L AB BLOOD ADD-ON Performing Organization Address City/[facility] Co de Phone Number [facility] 200 [place] [address], [facility] DTL [facility] 200 [place] [address] * (ABNORMAL) Reticulocyte Profile (09/05/2023 3:22 PM CDT) [facility] Reticulocytes, B 1.38 0.60 - 2.71 % [...] L AB BLOOD ADD-ON Performing Organization Address City/[facility] Co de Phone Number [facility] 200 [place] [address], [facility] DTL [facility] 200 [place] [address] * (ABNORMAL) Vitamin B12 Assay (09/05/2023 3:22 PM CDT) Pathologist [facility] Vitamin B12 Assay, S 123(L) 180 - [...] L AB BLOOD ADD-ON Performing Organization Address City/[facility]/ZIP Co de Phone Number [facility] 200 [place] [address], [facility] 200 [place] [address] * CRP (C-Reactive Protein) (09/05/2023 3:22 PM CDT) Pathologist [facility] C-Reactive Protein (CRP), S <3.0 <5.0 mg/L 09/05/2023 4:04 PM CDT DTL Blood 09/05/2023 3:22 PM CDT 09/05/2023 3:41 PM CDT Cata Mendez APRN.N.P., D.N.P. L AB BLOOD ADD-ON Performing Organization Address [facility] Co de Phone Number [facility] 200 [place] [address], [facility] 200 [place] [address] * Folate (09/05/2023 3:22 PM CDT) Pathologist [facility] Folate, S 14.5 >=4.0 mcg/L 09/06/2023 7: 42 AM CDT DTL Blood 09/05/2023 3:22 PM CDT 09/05/2023 3:41 PM CDT Cata Mendez APRN.N.P., D.N.P. L AB BLOOD ADD-ON Performing Organization Address City/[facility]/ZIP Co de Phone Number [facility] 200 [place], [place] [address] D[facility] 200 [place] [address] * (ABNORMAL) CBC-Preop with reflex anemia panel [...] (Blood, Venous) 09/05/2023 3:22 PM CDT Narrative [facility] - 09/05/2023 3:39 PM CDT Specimen Information: Specimen ID: [id number] Specimen Type: Blood Specimen Collection Start Date: 09/05/2023 ??3:22 PM Specimen ID: [id number] Specimen Type: Blood Specimen Collection Start Date: 09/05/2023 ??3:22 PM Specimen Received Date: 09/05/2023 ??3:32 PM Specimen ID: [id number] Specimen Type: Blood Specimen Collection Start Date: 09/05/2023 ??3:22 PM Norman Roca APRN, C.N.P., D.N.P. L AB BLOOD ADD-ON [facility] [address] [place] [address], [facility] DTL [facility] [address] [place] [address] documented in this encounter Visit Diagnoses Diagnosis Stenosis Aortic Valve Acquired Acquired Aortic Valve Disorder documented in this encounter Additional Health Concerns Assessment Noted Time PHQ-9 Depression Total Score: 0 08/20/20 23 12:00 PM CDT documented as of this encounter Care Teams Marsh Buggy Operator Relationship Specialty Start Date End Date Elsewhere, Pcp PCP - General Internal Medicine 08/19/23 09/27/23 documented as of this encounter
--- OUTSIDE RECORDS SUMMARY | 2023-12-04 12:17 | XMS_ITS | Encounter Summary ---
Author Name Unknown Organization [facility] Address [address] [place] [address] Care Team Providers Care Geothermal Powerplant Supervisor Name Role Phone Elsewhere, Pcp Primary Care Provider Unavailabl e Reason for Visit * Outpatient (Routine) - Closed Specialty Diagnoses / Procedures Referred By Sebas t Referred To Contact Anesthesiology Diagnoses Stenosis Aortic Valve Acquired Acquired Aortic Valve Disorder Norman Roca APRN, C.N.P., D.N.P. [address] [place] [phone] [facility] Referral ID Status Reason Start Date Expiration Date Visits Re quested Visits Authorized [id number] Closed 09/05/2023 09/04/2024 1 1 Encounter Details Date Type Department Care Team (Late st Contact Info) Description 09/11/2023 8:45 AM CDT Telemedicine Preoperative Evaluation Center in [place], [place] [address] [place] [phone] Norman Rcoa APRN, C.N.P., D.N.P. [address] [place] [phone] Fanny Villalobos APRN, C.N.P., D.N.P. 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 I have a [facility] place to live 08/29/2023 Sex and Gender Information Value Date Recorded Sex Assigned at Male 08/29/2023 11:06 AM CDT Gender Identity Male 08/29/2023 11:06 AM CDT Sexual Orientation Straight 08/29/2023 11 :06 AM CDT documented as of this encounter Consult Notes * Fanny Stanton APRN, C.N.P., D.N.P. - 09/11/2023 8:45 AM CDT REASON FOR VISIT: Anemia Evaluation REFERRING PHYSICIAN: Norman Roca APRN, C.N.P., D.N.P. SUBJECTIVE HISTORY OF PRESENT ILLNESS This Consult was conducted via real-time audio/video technology. Jong Harris is a 73 y.o. male here for preoperative anemia evaluation prior to scheduled replacement aortic valve, CABG x1 on September 19, [address] Miller. Patients most recent hemoglobin was?11.9?on 09/05/2023, which is up from the previous hemoglobin of11.5 on 08/22/2023. Lab Results Component Value Date HGB 11.9 (L) 09/05/2023 ABSRTCULOCYT 53.7 09/05/2023 RETICHGBIN 35.0 09/05/2023 FERRITIN 256 09/05/2023 LABIRON 29 09/05/2023 CRP <3.0 09/05/2023 EGFR 38 (L) 08/22/2023 CALSNRQW23 123 (L) 09/05/2023 FOLATE 14.5 09/05/2023 Family/personal history of any bleeding or clotting disorders: No History of bleeding: No, denies any hematuria, hematochezia, melena, or other bleeding. Blood transfusions in the last 3 months: No Blood donations in the last 3 months: No Past Hematology evaluation: No Current treatment with Chemo therapy: No Surgery or procedure in the last 3 months: Yes, coronary angiogram on 08/21/2023. History of gastric bypass, celiac disease or inflammatory bowel disease: No Current treatment with iron or EPO: Yes, oral iron daily for about one year. Current PPI use: Yes, Protonix Current cancer diagnosis: No Prior DVT or PE: No Last colonoscopy completed November 2022 and was normal. Recent admission August 19- for shortness of breath. Coronary angiogram on 08/21 demonstratedcoronary artery disease. Previous echocardiogram on 08/17 demonstrated severe aortic stenosis. Priorto admission hemoglobin ranged between 12.1-13. Last normal hemoglobin was 13.4 in March of 2020. During admission in August hemoglobin did decline to 11.5, iron labs completed were normal, erythropoietin level was normal, vitamin B12 was low at 123 on 08/21. He does have a history of iron deficiency and he reports he was told to initiate oral iron supplementation by his PCP about 1 year ago. Ironlabs completed in October of 2022 were normal. No low iron labs noted in the medical record or care everywhere. Lab Results Component Value Date HGB 11.9 (L) 09/05/2023 HGB 11.5 (L) 08/22/2023 HGB 11.7 (L) 08/19/2023 The following portions of the patient's history were reviewed and updated as appropriate: medical history, social history, and problem list. REVIEW OF SYSTEMS Respiratory: - Negative for coughing up blood. Gastrointestinal: - Negative for blood in stool. Genitourinary: - Negative for blood in urine. OBJECTIVE Constitutional Appearance: Normal appearance. Neurological Mental Status: He is alert. Psychiatric Mood and Affect: Mood normal. Behavior: Behavior normal. Thought Content: Thought content normal. Judgment: Judgment normal. 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 Vitamin B12 was down to 123 on September 05 and methylmalonic acid was elevated at 0.51. I recommend patient initiate 2000 mcg vitamin B12 daily oral for the next week before surgery. We discussed he could continue 1000 mcg vitamin B12 daily postoperatively as well. We discussed that hemoglobin did decline during recent hospitalization but has since recovered up to 11.9. We discussed the goal of optimizing his hemoglobin prior to scheduled surgery and that our goal preoperative hemoglobin is about 12. He is not iron deficient and erythropoietin level obtained during hospitalization was normal. We discussed the use of an EPO injection to optimize hemoglobin preoperatively. He does have a CBC scheduled for September 18 and we discussed pending hemoglobin result we may schedule an EPO injection that day in the [facility] infusion therapy Center. RECOMMENDATIONS: Anemia Treatment Recommendations: 2000 mcg vitamin B12 daily until surgery, may schedule EPO injection September 18 pending hemoglobin result. PATIENT EDUCATION: Patient education 0137-10 Treating anemia before surgery sent to patient via portal and reviewed with patient. All questions have been answered. Consult conducted via real-time audio/video technology by Fanny Stanton APRN, C.N.Michaela, D.N.PJarrett [facility] to the [facility] in the patient's home. documented in this encounter Plan of Treatment Upcoming Encounters Date Type Department Care Team (Latest Contact Info) Description 12/21/2023 10:15 AM LEGAL AID Clinical Communication Virtual Review in [place], [place] 200 [place] [address] 12/24/2023 2:00 PM LEGAL AID Comprehensive Visit Department of Cardiovascular Medicine in [address] [phone] Gudelia Soto M.D. [address] [place] [phone] 01/01/2024 3:45 PM LEGAL AID Comprehensive Visit Division of Hematology in [address] [phone] Billy Segal APRN, C.N.P., D.N.P. 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
--- OUTSIDE RECORDS SUMMARY | 2023-12-04 12:17 | XMS_ITS | Encounter Summary ---
Author Name Unknown Organization [facility] Address [address] [place] [address] Care Team Providers Care Interventional Radiology Tech Name Role Phone Elsewhere, Pcp Primary Care Provider Unavailabl e Encounter Details Date Type Department Care Team ([facility] st Contact Info) Description 09/06/2023 Orders Only Preoperative Evaluation Center in [place], [place] [address] [place] [phone] Fanny Villalobos, PIERRE, C.N.P., D.N.P. [address] [place] [phone] Anemia In Chronic Kidney Disease (Primary Dx); [...] your living situation today? I have a [facility] place to live 08/29/2023 Sex and Gender Information Value Date Recorded Sex Assigned at Male 08/29/2023 11:06 AM CDT Gender Identity Male 08/29/2023 11:06 AM CDT Sexual Orientation Straight 08/29/2023 11 :06 AM CDT documented as of this encounter Plan of Treatment Upcoming Encounters Date Type Department Care Team (Latest Contact Info) Description 12/21/2023 10:15 AM MUSICAL INSTRUMENT MAKER Clinical Communication Virtual Review in [place], [place] [address] [place] [address] 12/24/2023 2:00 PM MUSICAL INSTRUMENT MAKER Comprehensive Visit Department of Cardiovascular Medicine in [place], [place] [address] [place] [phone] Gudelia Soto M.D. [address] [place] [phone] 01/01/2024 3:45 PM MUSICAL INSTRUMENT MAKER Comprehensive Visit Division of Hematology in [place], [place] [address] [place] [phone] Billy Segal APRN, C.N.P., D.N.P. 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
--- OUTSIDE RECORDS SUMMARY | 2023-12-04 12:17 | XMS_ITS | Encounter Summary ---
Author Name Unknown Organization [facility] Address [address] [place] [address] Care Team Providers Care Allergist Name Role Phone Elsewhere, Pcp Primary Care Provider Unavailabl e Encounter Details Date Type Department Care Team (Late st Contact Info) Description 09/13/2023 Clinical Communication Department of Dental Specialties in [place], [place] [address] [place] [phone] Duc Bowling D.D.S. [address] [place] [phone] Social History Tobacco Use Types Packs/Day Years [...] your living situation today? I have a [facility] place to live 08/29/2023 Sex and Gender Information Value Date Recorded Sex Assigned at Male 08/29/2023 11:06 AM CDT Gender Identity Male 08/29/2023 11:06 AM CDT Sexual Orientation Straight 08/29/2023 11 :06 AM CDT documented as of this encounter Plan of Treatment Upcoming Encounters Date Type Department Care Team (Latest Contact Info) Description 12/21/2023 10:15 AM HEMODIALYSIS TECHNICIAN Clinical Communication Virtual Review in [place], [place] 200 [place] [address] 12/24/2023 2:00 PM HEMODIALYSIS TECHNICIAN Comprehensive Visit Department of Cardiovascular Medicine in [place], [place] [address] [place] [phone] Gudelia Soto M.D. [address] [place] [phone] 01/01/2024 3:45 PM HEMODIALYSIS TECHNICIAN Comprehensive Visit Division of Hematology in [place], [place] [address] [place] [phone] Billy Segal APRN, C.N.P., D.N.P. [address] [place] [address] documented as of this encounter Visit Diagnoses Not on filedocumented in this encounter Additional Health Concerns Assessment Noted Time PHQ-9 Depression Total Score: 1 09/10/20 23 2:06 PM CDT documented as of this encounter Care Teams Allergist Relationship Specialty Start Date End Date Elsewhere, Pcp PCP - General Internal Medicine 08/19/23 09/27/23 documented as of this encounter
--- OUTSIDE RECORDS SUMMARY | 2023-12-04 12:17 | XMS_ITS | Encounter Summary ---
Author Name Unknown Organization [facility] Address [address] [place] [id number] Care Team Providers Care Metal Wire Technician Name Role Phone Elsewhere, Pcp Primary Care Provider Unavailabl e Reason for Referral * Outpatient (Routine) - Closed Specialty Diagnoses / Procedures Referred By Contac t Referred To Contact Anesthesiology Diagnoses Stenosis Aortic Valve Acquired Acquired Aortic Valve Disorder Norman Roca APRN, C.N.P., D.N.P. [address] [place] [phone] [facility] Referral ID Status Reason Start Date Expiration Date Visits Re quested Visits Authorized [id number] Closed 09/05/2023 09/04/2024 1 1 * Outpatient (Routine) - Closed Specialty Diagnoses / Procedures Referred By Contac t Referred To Contact Pharmacy Diagnoses Stenosis Aortic Valve Acquired Acquired Aortic Valve Disorder Norman Roca APRN, C.N.P., D.N.P. [address] [place] [phone] [facility] Referral ID Status Reason Start Date Expiration Date Visits Re quested Visits Authorized [id number] Closed 09/05/2023 09/04/2024 1 1 * Specialty Diagnoses / Procedures Referred By Contac t Referred To Contact Norman Roca APRN, C.NKory, D.N.P. [address] [place] [address] [facility] Referral ID Status Reason Start Date Expiration Date Visits Re quested Visits Authorized Encounter Details Date Type Department Care Team (Late st Contact Info) Description 09/05/2023 3:00 PM CDT Office Visit Department of Cardiovascular Surgery in [place], [place] [address] [place] [phone] Norman Roca APRN, C.N.P., Emilia.N.P. [address] [place] [phone] Acquired Aortic Valve Disorder (Primary Dx); Stenosis Aortic Valve Acquired Social History Tobacco Use Types Packs/Day Years [...] your living situation today? I have a [facility] place to live 08/29/2023 Sex and Gender Information Value Date Recorded Sex Assigned at Male 08/29/2023 11:06 AM CDT Gender Identity Male 08/29/2023 11:06 AM CDT Sexual Orientation Straight 08/29/2023 11 :06 AM CDT documented as of this encounter Last Filed Vital Signs Vital Sign Reading Time Taken Comments Blood Pressure 153/81 09/05/2023 1:47 PM CDT Pulse 77 09/05/2023 1:47 PM CDT Temperature 36.1 ??C (96.9 ??F) 09/05/2023 1:47 PM CD T Respiratory Rate - - Oxygen Saturation 98% 09/05/2023 1:47 PM CDT Inhaled Oxygen Concentration - - Weight 87.1 kg (192 lb 2.1 oz) 09/05/2023 1:47 P M CDT Height 172.5 cm (5' 7.91) 09/05/2023 1:47 PM CD T Body Mass Index 29.29 09/05/2023 1:47 PM CDT documented in this encounter Progress Notes * Norman Roca APRN, C.N.P., D.N.P. - 09/05/2023 3:00 PM CDT Jong Harris : 1950 Visit Date: 09/05/23 The patient was seen in consultation with Dr. Miller. The patient has been scheduled for mechanical AVR, CABG with vein, possible Maze and possible left atrial appendage ligation with Dr. Miller with a surgical date of 09/19/2023. This date was chosen/approved by the surgeon. Intraoperative orderswere placed. 1. The required preoperative testing has been ordered to be completed prior to surgery. This includes: Labs: CBC, BMP, and Type & Screen (early) Tests: No further testing required. Cardiac Catheterization: Previously completed on 08/21/2023, images available in Qreads As the patient was scheduled for an angiogram, I gave the patient the purple booklet to call on at 7:00 p.m. for a report time. I discussed NPO restrictions. Consultations: Pharmacy Medication Consult A Pre-operative appointment will be scheduled with the [facility] and RN Team prior to surgery. Pleasealso schedule a visit with the surgeon. 2. Patient denies any allergies to penicillin and contrast dye 3. The patient's most recent known hemoglobin is 11.5 g/dL on 08/22/2023. The patient does need an anemia clinic work-up. Reflex anemia panel has been ordered/completed. 4. Does patient currently smoke? No 5. Patient will need to be seen by a local dentist to be cleared for surgery. A dental clearance form has been provided. 6. The following medication instructions were provided to the patient: Antiplatelet: Aspirin - last dose will be the day prior to surgery. Anticoagulation: N/A LEATHA/ARB: N/A Diabetic Medication: Metformin - Do not take the night before or day of your contrast procedure . Recent A1C level within 6 months: 6.2 Immunosuppression: N/A Stop all NSAIDs, ibuprofen (Advil) or similar medications 3 days prior to surgery. Stop all vitamins, fish oil, and supplements 7 days prior to surgery. No other medication changes are recommended. If any new medications are initiated, medical changes arise, or you have a positive COVID test or exposure, you are responsible for contacting the surgical team. Please do not schedule any vaccines within 2 weeks before or after surgery. The patient has been provided a complete patient appointment guide prior to leaving clinic today orwill view via patient portal. I personally spent 15 minutes in care of the patient today. Time includes both [id number] [id number] patient care. Bret Roca APRN, Cata.N.P., D.N.P. documented in this encounter Plan of Treatment Upcoming Encounters Date Type Department Care Team (Latest Contact Info) Description 12/21/2023 10:15 AM CHIEF MEDICAL TECHNOLOGIST Clinical Communication Virtual Review in [place], [place] [address] [place] [address] 12/24/2023 2:00 PM CHIEF MEDICAL TECHNOLOGIST Comprehensive Visit Department of Cardiovascular Medicine in [address] [phone] Gudelia Soto M.D. [address] [place] [phone] 01/01/2024 3:45 PM CHIEF MEDICAL TECHNOLOGIST Comprehensive Visit Division of Hematology in [address] [phone] Billy Segal APRN, C.N.P., D.N.P. [address] [place] [phone] Scheduled Referrals Name Type Priority Associated Diagnoses Order Schedule Cardiovascular Surgery - Education visit (clinic) Outpatient Referral Routine Stenosis Aortic Valve Acquired Acquired Aortic Valve Disorder 1 Occurrences starting 09/05/2023 until 12/06/2024 Pharmacy - Pre surgery medication history consult (clinic) Outpatient Referral Routine Stenosis Aortic Valve Acquired Acquired Aortic Valve Disorder 1 Occurrences starting 09/05/2023 until 12/06/2024 Preoperative Medical Evaluation - [facility] Anemia Consult (clinic) Outpatient Referral Routine Stenosis Aortic Valve Acquired Acquired Aortic Valve Disorder Expected: 09/05/2023 (Approximate), Expires: 12/06/2024 documented as of this encounter Results * Type and Screen (with Reflex Antibody ID) (09/18/2023 9:04 AM CHIEF MEDICAL TECHNOLOGIST) ABORh A Neg Not applicable 09/18/2023 10:53 AM CHIEF MEDICAL TECHNOLOGIST STRM Antibody Screen Negative Negative 09/18/2023 11:09 AM CHIEF MEDICAL TECHNOLOGIST STRM Type & Screen Expiration 11/16/2023 23:59 09/18/2023 10:53 AM CHIEF MEDICAL TECHNOLOGIST STRM Testing Location Mercedes DEFAULT 09/18/2023 10:24 AM CHIEF MEDICAL TECHNOLOGIST STRM Blood (Blood, Venous) 09/18/2023 9:04 AM CHIEF MEDICAL TECHNOLOGIST 09/18/2023 10:24 AM CHIEF MEDICAL TECHNOLOGIST Norman Roca APRN, C.N.P., D.N.P. L AB BLOOD BANK TEST ORDERABLES [facility] [address] [place] [address], [facility] STRFormerly [facility] [address] [place] [address] * (ABNORMAL) Basic Metabolic Panel (09/18/2023 9:04 AM CHIEF MEDICAL TECHNOLOGIST) Potassium, S 4.5 3.6 - 5.2 mmol/L 09/18/2023 10:19 AM CHIEF MEDICAL TECHNOLOGIST DTL Sodium, S 141 135 - 145 mmol/L 09/18/2023 10:19 AM CHIEF MEDICAL TECHNOLOGIST DTL Chloride, S 106 98 - 107 mmol/L 09/18/2023 10:19 AM CHIEF MEDICAL TECHNOLOGIST DTL Bicarbonate, S 26 22 - 29 mmol/L 09/18/2023 10:19 AM CHIEF MEDICAL TECHNOLOGIST DTL Anion Gap 9 7 - 15 09/18/2023 10:19 AM CHIEF MEDICAL TECHNOLOGIST DTL BUN (Blood Urea Nitrogen), S 20 8 - 24 mg/dL 09/18/2023 10:19 AM CHIEF MEDICAL TECHNOLOGIST DTL Creatinine 1.76(H) 0.74 - 1.35 mg/dL 09/18/2023 10:19 AM CHIEF MEDICAL TECHNOLOGIST DTL Estimated GFR (eGFR) 41(L) >=60 mL/min/BSA 09/18/2023 10:19 AM CHIEF MEDICAL TECHNOLOGIST DTL Comment: Estimated GFR calculated using the 2020 CKD_EPI creatinine equation. Calcium, Total, S 9.1 8.8 - 10.2 mg/dL 09/18/2023 10:19 AM CHIEF MEDICAL TECHNOLOGIST DTL Glucose, S 196(H) 70 - 140 mg/dL 09/18/2023 10:19 AM CHIEF MEDICAL TECHNOLOGIST DTL Blood (Blood, Venous) 09/18/2023 9:04 AM CHIEF MEDICAL TECHNOLOGIST 09/18/2023 9:54 AM CHIEF MEDICAL TECHNOLOGIST Radha Mendez APRNN.Fritz., D.N.P. L AB BLOOD ADD-ON [facility] [address] [place], [place] [id number] [place] [address] DTL [place] [address] [place] [address] * (ABNORMAL) CBC without Differential (09/18/2023 9:04 AM CHIEF MEDICAL TECHNOLOGIST) Hemoglobin 12.0(L) 13.2 - 16.6 g/dL 09/18/2023 10:00 AM CHIEF MEDICAL TECHNOLOGIST DTL Hematocrit 35.8(L) 38.3 - 48.6 % 09/18/2023 10:00 AM CHIEF MEDICAL TECHNOLOGIST DTL Erythrocytes 3.94(L) 4.35 - 5.65 x10(12)/L 09/18/2023 10:00 AM CHIEF MEDICAL TECHNOLOGIST DTL MCV 90.9 78.2 - 97.9 fL 09/18/2023 10:00 AM CHIEF MEDICAL TECHNOLOGIST DTL RBC Distrib Width 12.2 11.8 - 14.5 % 09/18/2023 10:00 AM CHIEF MEDICAL TECHNOLOGIST DTL Platelet Count 182 135 - 317 x10(9)/L 09/18/2023 10:00 AM CHIEF MEDICAL TECHNOLOGIST DTL Leukocytes 5.2 3.4 - 9.6 x10(9)/L 09/18/2023 10:00 AM CHIEF MEDICAL TECHNOLOGIST DTL Blood (Blood, Venous) 09/18/2023 9:04 AM CHIEF MEDICAL TECHNOLOGIST 09/18/2023 9:35 AM CHIEF MEDICAL TECHNOLOGIST Cata Mendez APRN.N.P., D.N.P. L AB BLOOD ADD-ON [facility] [address] [place] [address], [facility] DTL [place] [address] [place] [address] * (ABNORMAL) CBC-Preop with reflex anemia panel [...] (Blood, Venous) 09/05/2023 3:22 PM CDT Narrative [facility] - 09/05/2023 3:39 PM CDT Specimen Information: Specimen ID: [id number] Specimen Type: Blood Specimen Collection Start Date: 09/05/2023 ??3:22 PM Specimen ID: [id number] Specimen Type: Blood Specimen Collection Start Date: 09/05/2023 ??3:22 PM Specimen Received Date: 09/05/2023 ??3:32 PM Specimen ID: [id number] Specimen Type: Blood Specimen Collection Start Date: 09/05/2023 ??3:22 PM Norman Roca APRN, C.N.P., D.N.P. L AB BLOOD ADD-ON [facility] [address] [place] [address], [facility] DTL [place] [address] [place] [address] documented in this encounter Visit Diagnoses Diagnosis Acquired Aortic Valve Disorder- Primary Stenosis Aortic Valve Acquired Stenosis Aortic Valve Acquired Acquired Aortic Valve Disorder documented in this encounter Additional Health Concerns Assessment Noted Time PHQ-9 Depression Total Score: 0 08/20/20 23 12:00 PM CDT documented as of this encounter Care Teams Metal Wire 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
--- OUTSIDE RECORDS SUMMARY | 2023-12-04 12:17 | XMS_ITS | Encounter Summary ---
Author Name Unknown Organization [facility] Address [address] [place] [id number] Care Team Providers Care Care Trainer Name Role Phone Elsewhere, Pcp Primary Care Provider Unavailabl e Reason for Visit * Auth/Cert (Routine) Specialty Diagnoses / Procedures Referred By Sebas t Referred To Contact Diagnoses Stenosis Aortic Valve Acquired Stenosis Aortic Valve Acquired [I35.0] Procedures WI RPLC AORTIC VLV W PROSTH VLV WI COR ART BYPASS 1 COR JORDAN GRAFT WI REOP COR ART BYP/VALVE PROC WI ENDO SURG W VA HARVEST CABG WI EXCL DAHIANA OPN OTH PX ANY METH REPLACEMENT AORTIC VALVE 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 - REDO LIGATION LEFT ATRIAL APPENDAGE ISOLATION PULMONARY VEIN Referral ID Status Reason Start Date Expiration Date Visits Re quested Visits Authorized [id number] 1 1 Encounter Details Date Type Department Care Team (Late st Contact Info) Description 09/19/2023 7:30 AM REFRIGERATION SERVICE INSPECTOR Anesthesia Event [facility] OR [address] [place] [phone] Rowena Antonio M.D. [address] [place] [phone] Peyton Corbin, Ryan.Tab., L.R.T. [address] [place] [phone] Anesthesia Record Procedure Summary Procedure Name Responsible Anesthesiologist Anesthesia Start Time Anesthesia Stop Time REPLACEMENT AORTIC VALVE, POSSIBLE AORTIC ROOT ENLARGEMENT. (On-X Conform 23mm Valve) (Chest) Rowena Antonio M.D. 09/19/23 0730 11/08/23 1719 Events Date Time Event Comment 09/19/2023 0730 An Start Machine/Equipme nt Checked Infection Precautions Followed Procedure/Site Verified NPO Status Verified Supine Standard ASA Monitors Applied 0734 0743 Invasive catheter placement Left radial arterial 0746 An Induction 0752 An Intubation 0755 Quick Note EDMUNDO probe place ment 0806 Invasive catheter placement 0806 Turnover to Proceduralist 0833 An Start Data 0839 an stop data 0859 Proc Start 0911 Lungs Down During Sternal Sp lit 0912 Sternal Split 0916 an stop data 0923 An Start Data 0932 ACT Adequate for CPB 0937 Art Line Pulse/Test 0944 An CV Bypass init 0948 AN Active Cool 0950 Quick Note Poor drainage, notified. RBCs requested 0954 In-Line Monitor Calibrated 0956 An Clamp On 1037 Cooling Stop 1037 Notified of Plegia Time 1125 Notified of Plegia Time 1140 Notified of Plegia Time 1156 AN Active Warm 1216 An Clamp Off 1217 Quick Note Hgb calibrated. 1223 An CV Bypass Ended 1223 Warming Stop 1259 Quick Note Surgical team m anipulating heart 1301 Quick Note Surgical team c ommunicated bleed on back side of heart 1355 Sternal Closure 1424 Turnover to ANE Staff 1505 Turnover to Proceduralist 1505 Quick Note Surgical team p melinda to reopen due to chest tube output. Patient hemodynamically stable during transfer to and from cart. 1524 Quick Note Acute hypotensi on shortly after moving patient back to OR table with plan to reopen chest. Also had acute increase in RA pressures and narrowing of PA systolic and diastolic pulse pressure. Concern for tamponade. Fluids opened, blood given, pressor boluses as needed and labs sent to support patient. Hypotension improved with opening of chest and large clot in pericardial space seen -- see surgical note. Dr. Obdulio Carson in room. 1545 Surgical Manipulation of Hea rt 1627 Quick Note Elevated RAP wi th narrowing pulse pressure -- EDMUNDO probe replaced by Dr. Antonio and no signs of tamponade 1634 Proc Fin 1704 Transfer to ICU/PCU Anesthes ia transport medically necessary Report received and care transferred Transfer Details: Vital signs stable during transfer and Ventilation and oxygen saturation stable during transport 1704 Monitored Transport 1704 an stop data 1719 An End I completed my handoff to the receiving staff during which we 1. Identified the patient 2. Identified the responsible provider 3. Reviewed the pertinent medical history 4. Discussed the surgical course 5. Reviewed intra-op anesthesia management and issues during anesthesia 6. Set expectations for post-procedure period 7. Allowed opportunity for questions and acknowledgement of understanding. Meds Name Total midazolam 1 mg/mL injection 2 mg fentanyl injection 50 mcg/mL 250 mcg ketamine 10 mg/mL injection 80 mg lidocaine 2% (mg) injection 100 mg rocuronium 10 mg/mL injection 130 mg heparin 1,000 units/mL injection 34,000 Units heparin 1,000 units/mL injection 5,000 U nits phenylephrine 100 mcg/mL injection 700 m cg phenylephrine 100 mcg/mL injection 1,300 mcg ePHEDrine PF 5 mg/mL syringe injection 2 0 mg calcium chloride 100 mg/mL injection 5,0 00 mg dexamethasone 4 mg/mL injection 4 mg mupirocin nasal ointment 2% 0.5 g protamine 10 mg/mL injection 340 mg granisetron (KYTRIL) PF injection 1 mg/m L 1 mg sugammadex 100 mg/mL injection 200 mg acetaminophen injection 10mg/ml 1,000 mg clevidipine 0.5 mg/mL infusion (CLEVIPRE X) 0.23 mg EPINEPHrine 16 mcg/mL in NaCl 0.9% mL 25 0 mL infusion (ADRENALIN) 0.11 mg norepinephrine 16 mcg/mL in D5W 250 mL i nfusion 0.37 mg tranexamic acid 8 mg/mL in NaCl 0.9% 250 mL infusion (CYKLOKAPRON) 1,028.96 mg tranexamic acid 850 mg in NaCl 0.9% IVPB 850 mg clevidipine 0.5 mg/mL bolus 0.375 mg [place] Cardioplegia soluti on: potassium chloride 26 mEq, magnesium sulfate 2 g, lidocaine (PF) 130 mg, mannitol 3.25 g, sodium bicarbonate 13 mEq in electrolyte-A 1,000 mL (20% mannitol used) 2,000 mL tranexamic acid pump prime 40 mg (CYKLOK APRON) 40 mg phenylephrine 80 mcg/mL in NaCl 0.9% 250 mL infusion 8.62 mg ceFAZolin injection 2,000 mg (ANCEF) 6 g methadone injection 26.2 mg (DOLOPHINE) 30 mg insulin regular 1 Unit/mL in NaCl 0.9% 1 00 mL infusion 12.76 Units milrinone 200 mcg/mL in D5W 100 mL infus ion (PRIMACOR) 0 mg vasopressin 20 unit/100 mL ( 0.2 unit/mL) in D5W 100 mL infusion (PITRESSIN) 0 Units propofol 10 mg/mL infusion 583.01 mg caffeine-sodium benzoate 250 mg (125 mg caffeine)/mL injection 250 mg plasmalyte-A free drip 2,800 mL plasmalyte-A free drip 2,100 mL prothrombin complex conc (hu man) four factor infusion 1,577 Units (KCENTRA) 60 mL * Agents No agents on file. * Blood Name Total RED BLOOD CELLS 1,320 mL AUTOLOGOUS RBC-CELL SALVAGE 314 mL PLATELETS 569 mL FRESH FROZEN PLASMA 283 mL CRYOPRECIPITATE 200 mL Lines, Drains, and Airways Type Details Placement Removal Wound 09/19/23; N; Incisio n; Thigh; Anterior, Left, Proximal 09/19/23 0000 by Shameka Plata R.N. Wound 09/19/23; 0910; N; Incision; Sternum 09/19/23 09 by Shameka Plata R.N. Wound 09/19/23; 0910; N; Incision; Knee; Anterior, Left 09/19/23 0910 by Shameka Plata RSammi Peripheral IV Placement Date: 09/19/23; Placement Time: 720; Catheter Size: 20 G; Orientation: Anterior, Lower, Proximal, Right; Location: Forearm; Site Prep: Chlorhexidine (Preferred); Technique: Anatomical landmarks; Inserted by: [facility]; Insertion Attempts: 1; Removal Date: 09/21/23; Removal Time: 1912; Removal Reason: Infiltrated 09/19/23720 by Max Fong 09/21/231912 by Ashleigh Valero RSammi Arterial Line Placement Date: 09/19/23; Placemnt Time: 742 (created via procedure documentation); Size: 20 G; Orientation: Left; Location: Radial; Site Prep: Chlorhexidine (Preferred); Technique: Ultrasound guidance; Insertion Attempts: 1; Securement: Securement dressing, Securement device; Removal Date: 09/21/23; Removal Time: 90609/19/23742 by Radha Iqbal M.D. 09/21/23906 by Valorie Mcdaniel R.N. ETT Placement Date: 09/19/23; Placement Time: 075 (created via procedure documentation); Mask Ventilation: Oral/Nasal airway needed; Technique: Direct laryngoscopy, intubation; Type: Standard ETT; Single Lumen Tube Size: 8 mm; Cuffed: Yes; Blade Size: Ospina 2; Location: Oral; Grade View: Grade 1; Insertion Attempts: 1; Placement Verification: Bilateral breath sounds, Positive ETCO2, Symmetrical chest wall movement; Removal Date: 09/19/23; Removal Time: 191909/19/23751 by Radha Iqbal M.D. 09/19/231919 by Mare Tenorio R.N. Indwelling Urinary Catheter Placement Date: 09/19/23; Placement Time: 799; Inserted by: Ginette Garcia; Type: Non-latex; Size: 16 Fr.; Balloon Size: 10 mL; Urine Returned: Yes; Removal Date: 09/22/23; Removal Time: 92909/19/23799 by Shameka Plata R.N. 09/22/23929 by Jean Paul Hastings PA Cath 09/19/23; 08 (crea umberto via procedure documentation); Temporary (non-tunneled, non-implanted); Yes; Yes; Yes; Chlorhexidine (Preferred); Cap, Gloves, Gown, Large drape, Mask (Clinician), Mask (All others in room); 8 Fr; PA Cath; Right; Internal Jugular; 09/19/23; 2218; Per order 09/19/23805 by Radha Iqbal M.D. 09/19/232218 by Mare Tenorio R.N. Introducer 09/19/23; 08 (crethuan shipman via procedure documentation); Temporary (non-tunneled, non-implanted); Yes; Yes; Yes; Chlorhexidine (Preferred); Cap, Gloves, Gown, Large drape, Mask (Clinician), Mask (All others in room); Internal jugular; Right; Double lumen; Sutured; 09/22/23; 182; Per order 09/19/23805 by Radha Iqbal M.D. 09/22/23 1823 by Radha Lara R.N. Peripheral IV Placement Date: 09/19/23; Placement Time: 810; Catheter Size: 14 G ; Orientation: Left; Location: Forearm; Technique: Transillumination; Removal Date: 09/21/23; Removal Time: 1158; Removal Reason: Leaking 09/19/23 0811 by Radha Iqbal M.D. 09/21/23 1158 by Valorie Mcdaniel R.N. Y Chest Tube 1 and 2 09/19/23; 1317; Mediastinal; 32 Fr (filled by Miraha Baseman); Mediastinal; 32 Fr (filled by Miraha Baseman); Criteria for drain removal met 09/19/23 1317 by Shameka Plata R.N. 09/22/23 1615 by Radha Lara R.N. documented in this encounter Social History Tobacco Use Types Packs/Day Years [...] AM CDT documented as of this encounter OR Notes * Anesthesia Postprocedure Evaluation - Miguel Vides, SERVICE AIDE, BERTO, DNAP - 09/19/2023 5:19 PM CST Patient: Jong Nieto Steven Procedure Summary Date: 09/19/23 Room / Location: [place] [address] / [facility] in [place], [place] Anesthesia Start: 729 Anesthesia Stop: 1718 Procedures: REPLACEMENT AORTIC VALVE, POSSIBLE AORTIC ROOT ENLARGEMENT. (On-X Conform 23mm Valve) (Chest) CORONARY ARTERY BYPASS GRAFT X1, VEIN. (Chest) LIGATION LEFT ATRIAL APPENDAGE. ISOLATION PULMONARY VEIN. (Chest) ECHOCARDIOGRAM TRANSESOPHAGEAL Diagnosis: Stenosis Aortic Valve Acquired (Stenosis Aortic Valve Acquired [I35.0].) Providers: Sarah Miller M.D., M.P.H. Responsible Provider: Rowena Antonio M.D. Anesthesia Type: general ASA Status: 4 Anesthesia Type: general Last vitals Vitals Value Taken Time BP Temp 34.4 ??C 09/19/231718 Pulse 76 09/19/23 1719 Resp 17 09/19/23 171 SpO2 100 % 09/19/231718 Vitals shown include unvalidated device data. Please reference Vitals flowsheet for most recent vital signs. Anesthesia Post Evaluation Patient Disposition: monitored unit, expectation for recovery time deferred to receiving unit Cardiovascular status: hemodynamics (HR & BP) acceptable (On current infusions.) Temperature: hypo or hyperthermic requiring ongoing treatment Oxygen requirements: assisted ventilation (non-invasive or mechanical ventilation) with additional oxygen Level of consciousness: unconscious, patient unable to participate in evaluation Pain score: pain unable to be assessed Post Op nausea/vomiting: none Hydration status: hypo or hypervolemic requiring ongoing treatment IGERATION SERVICE INSPECTOR * Anesthesia Procedure Notes - Radha Iqbal M.D. - 09/19/2023 8:55 AM REFRIGERATION SERVICE INSPECTOR Associated Order(s): Airway Airway Date/Time: 09/19/2023 7:52 AM Performed by: Radha Iqbal M.D. Authorized by: Radha Iqbal M.D. Patient location during procedure: OR / Procedure Area PROCEDURE DETAILS: Mask difficulty assessment: oral/nasal airway needed Final airway type: direct laryngoscopy, intubation Laryngeal Manipulation: no Final airway difficulty of direct laryngoscopy (DL): 0-easy Final best view of glottic structures - Cormack/Lehane Score: grade 1 ETT location: oral Blade type: Ospina 2 Tube size: 8 ETT distance at teeth/gum: 24 Oral tube type: standard ETT Cuffed: yes Leak Test Performed: no Number of attempt to successful placement: 1 Airway confirmation: bilateral breath sounds, positive ETCO2 and bilateral chest rise Other previous techniques attempted: none PRE PROCEDURE DETAILS: Pre evaluation for airway management: procedure Urgency: elective Preop assessment of probable difficulty: no difficulty anticipated Preoxygenation: bag valve mask SEDATION / ANESTHESIA Anesthesia method: anesthesia POST PROCEDURE DETAILS: Procedure outcome: successful Airway event: no complications IGERATION SERVICE INSPECTOR * Anesthesia Procedure Notes - Radha Iqbal M.D. - 09/19/2023 8:15 AM REFRIGERATION SERVICE INSPECTOR Associated Order(s): Invasive Catheter Invasive Catheter Date/Time: 09/19/2023 7:43 AM Performed by: Radha Iqbal M.D. Authorized by: Deja Barney M.D. Location: OR PROCEDURE DETAILS: Line type: arterial Laterality: left Location: radial Location details: new site Age group: adult Catheter diameter: 20 Ga Catheter length (cm): 10 Technique: ultrasound guided Ultrasound guidance: image not saved Monitored: yes Number of attempts: 1 UNIVERSAL PROTOCOL [...] utilized as applicable for the procedure.: yes Skin preparation: chlorhexidine SEDATION / ANESTHESIA Anesthesia method: local infiltration Local infiltrate type: lidocaine POST-PROCEDURE DETAILS: Procedure completed successfully: yes Line secured: secured with sutureless device Chlorhexidine disc around insertion site and under catheter with slight turn: yes Complications - arterial: none ATTESTATION STATEMENT A resident or fellow participated in the procedure, and the configuration management consultant was present for the entire procedure. IGERATION SERVICE INSPECTOR * Anesthesia Procedure Notes - Radha Iqbal M.D. - 09/19/2023 8:11 AM REFRIGERATION SERVICE INSPECTOR Associated Order(s): Invasive Catheter Invasive Catheter Date/Time: 09/19/2023 8:06 AM Performed by: Radha Iqbal M.D. Authorized by: Radha Iqbal M.D. Location: OR PROCEDURE DETAILS: Line type: central venous Laterality: right Location: jugular internal Location details: new site Additional catheter (i.e. multiple lines in same vessel): no Patient position: Trendelenburg Age group: adult Line Type: temporary (non-tunneled, non-implanted) Introducer: yes Introducer size: 9 Fr Introducer insertion depth: 10 cm Catheter placed via introducer: pulmonary artery catheter Lumen(s): double lumen Catheter diameter: 8 Fr Catheter insertion depth (cm): other (48 cm) Site the catheter was advanced to (this is the intended location and does not need to be proven by radiologic exam): pulmonary artery Technique: ultrasound guided with EDMUNDO confirmation of guidewire in right atrium prior to vessel dilation Ultrasound guidance: image acquired and saved Ultrasound comment: ultrasound guidance used demonstrating vessel patency and cannulation of the vessel observed. Vessel transduced: no Monitored (venous): yes Number of attempts: 1 [...] utilized as applicable for the procedure.: yes Skin preparation: chlorhexidine SEDATION / ANESTHESIA Anesthesia method: anesthesia POST-PROCEDURE DETAILS: Procedure completed successfully: yes Line secured: sutured Chlorhexidine disc around insertion site and under catheter with slight turn: yes Complications: none ATTESTATION STATEMENT A resident or fellow participated in the procedure, and the configuration management consultant was present for the entire procedure. IGERATION SERVICE INSPECTOR * Anesthesia Procedure Notes - Radha Iqbal M.D. - 09/19/2023 7:58 AM REFRIGERATION SERVICE INSPECTOR Associated Order(s): EDMUNDO EDMUNDO Date/Time: 09/19/2023 7:55 AM Performed by: Radha Iqbal M.D. Authorized by: Radha Iqbal M.D. Location: OR PROCEDURE DETAILS: Indications: actual or anticipated hemodynamic instability, aorta repair/replacement and placement/positioning of line or device Transesophageal type: placement of EDMUNDO probe only Complications: no complications and adult probe inserted without difficulty ATTESTATION STATEMENT A resident or fellow participated in the procedure, and the configuration management consultant was present for the entire procedure. IGERATION SERVICE INSPECTOR * Anesthesia Preprocedure Evaluation - Deja Barney M.D. - 09/19/2023 7:33 AM CST Preprocedure Anesthesia & H&P Assessment Procedure Summary Date/Time: 09/19/23 0700 Procedures: REPLACEMENT AORTIC VALVE, POSSIBLE AORTIC ROOT ENLARGEMENT. (Chest) CORONARY ARTERY BYPASS GRAFT X1, VEIN. (Chest) LIGATION LEFT ATRIAL APPENDAGE. ISOLATION PULMONARY VEIN. (Chest) Diagnosis: Stenosis Aortic Valve Acquired [I35.0] Pre-op diagnosis: Stenosis Aortic Valve Acquired [I35.0]. Location: [place] [address] / [facility] in [place], [place] Providers: Sarah Miller M.D., M.P.H. Pertinent components of the patient's history including current problem list, medical history, surgical history, family history, social history, medications and allergies were reviewed. Present illness and pre-op diagnosis were confirmed. The planned surgery / procedure was verified with the patient / legal guardian. 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 Glomerular Filtration Rate (GFR) 30 To 44 (HCC) NEURO (+) Hemiplegia Dominant Side Right (HCC) HEME (+) Anemia In Chronic Kidney Disease OBJECTIVE PHYSICAL EXAMINATION Airway (HEENT) Mallampati: II TM Distance: >3 FB Neck ROM: Limited Mouth Opening: >3 cm Upper Lip Bite Test Class: I Cardiovascular Rhythm: Regular Rate: Normal Pulmonary Pulmonary Assessment: Non labored General / Constitutional General State of Health:: calm ASSESSMENT / PLAN ANESTHESIA PLAN ASA: 4 Anesthesia Plan: general Patient seen and allergies reviewed, anesthesia plan and risks discussed directly with patient /legal guardian or through an foreign language interpreter. Risks/Benefits/Alternatives of Blood transfusion discussed with patient / legal guardian, includingan opportunity to ask questions and/or decline some or all transfusion therapies. The patient / legal guardian consented to the use of all blood products, as deemed medically necessary Approval to Proceed: approved for anesthesia IGERATION SERVICE INSPECTOR * Anesthesia Preprocedure Evaluation - Deja Barney M.D. - 09/19/2023 7:15 AM CST Preprocedure Anesthesia & H&P Assessment Procedure Summary Anesthesia Start Date/Time: 09/19/23729 Procedures: REPLACEMENT AORTIC VALVE, POSSIBLE AORTIC ROOT ENLARGEMENT. (Chest) CORONARY ARTERY BYPASS GRAFT X1, VEIN. (Chest) LIGATION LEFT ATRIAL APPENDAGE. ISOLATION PULMONARY VEIN. (Chest) Diagnosis: Stenosis Aortic Valve Acquired [I35.0] Pre-op diagnosis: Stenosis Aortic Valve Acquired [I35.0]. Location: [place] [address] / [facility] in [place], [place] Providers: Sarah Miller M.D., M.P.H. Pertinent components of the patient's history including current problem list, medical history, surgical history, family history, social history, medications and allergies were reviewed. Present illness and pre-op diagnosis were confirmed. The planned surgery / procedure was verified with the patient / legal guardian. 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 Glomerular Filtration Rate (GFR) 30 To 44 (HCC) NEURO (+) Hemiplegia Dominant Side Right (HCC) HEME (+) Anemia In Chronic Kidney Disease OBJECTIVE PHYSICAL EXAMINATION Airway (HEENT) Mallampati: II TM Distance: >3 FB Neck ROM: Full Mouth Opening: >3 cm Upper Lip Bite Test Class: I Facies (pediatrics): normal Cardiovascular Rhythm: Regular Rate: Normal Cardiovascular Assessment: cardiovascular normal Functional Capacity: <4 METS Pulmonary Pulmonary Assessment: Clear and non labored General / Constitutional Constitutional Assessment: Normal General State of Health:: healthy appearing Neurological Neurologic Assessment: alert and alert and oriented x 3 Dental Dental Assessment: dentition intact ASSESSMENT / PLAN ANESTHESIA PLAN ASA: 3 Anesthesia Plan: general Patient seen and allergies reviewed, anesthesia plan and risks discussed directly with patient /legal guardian or through an foreign language interpreter. Risks/Benefits/Alternatives of Blood transfusion discussed with patient / legal guardian, includingan opportunity to ask questions and/or decline some or all transfusion therapies. The patient / legal guardian consented to the use of all blood products, as deemed medically necessary Approval to Proceed: approved for anesthesia IGERATION SERVICE INSPECTOR documented in this encounter Plan of Treatment Upcoming Encounters Date Type Department Care Team (Latest Contact Info) Description 12/21/2023 10:15 AM REFRIGERATION SERVICE INSPECTOR Clinical Communication Virtual Review in [address] [address] 12/24/2023 2:00 PM REFRIGERATION SERVICE INSPECTOR Comprehensive Visit Department of Cardiovascular Medicine in [address] [phone] Gudelia Soto M.D. [address] [place] [phone] 01/01/2024 3:45 PM REFRIGERATION SERVICE INSPECTOR Comprehensive Visit Division of Hematology in [address] [phone] Billy Segal APRN, C.N.P., D.N.P. [address] [place] [phone] documented as of this encounter Procedures Procedure Name Priority Date/Time Associated Diagnosis Comments MC ANE CENTRAL LINE GENERIC PERFORMABLE Routine 09/19/2023 8:06 AM REFRIGERATION SERVICE INSPECTOR LDA ANE INTRODUCER ONLY Routine 09/19/2023 8:06 AM REFRIGERATION SERVICE INSPECTOR LDA ANE PA CATH Routine 09/19/2023 8:06 AM REFRIGERATION SERVICE INSPECTOR MC ANE INVASIVE CATH WITH ULTRASOUND Routine 09/19/2023 8:06 AM REFRIGERATION SERVICE INSPECTOR WI INS/PLC FLOW DIR CATH Routine 09/19/2023 8:06 AM REFRIGERATION SERVICE INSPECTOR WI US GUIDE VASC ACCESS Routine 09/19/2023 8:06 AM REFRIGERATION SERVICE INSPECTOR WI ECHO EDMUNDO 2D PLC ONLY Routine 09/19/2023 7:55 AM REFRIGERATION SERVICE INSPECTOR AIRWAY MANAGEMENT Routine 09/19/2023 7:5 2 AM REFRIGERATION SERVICE INSPECTOR LDA ANE ARTERIAL LINE INSERTION Routine 09/19/2023 7:43 AM REFRIGERATION SERVICE INSPECTOR WI ARTL CATH/CNULA MONITOR PERC Routine 09/19/2023 7:43 AM REFRIGERATION SERVICE INSPECTOR documented in this encounter Results * WI US GUIDE VASC ACCESS, WI INS/PLC FLOW DIR CATH, MC ANE INVASIVE CATH WITH ULTRASOUND, LDA ANE PACATH, LDA ANE INTRODUCER ONLY, MC ANE CENTRAL LINE GENERIC PERFORMABLE (09/19/2023 8:06 AM REFRIGERATION SERVICE INSPECTOR) Narrative eDja Barney M.D. - 09/19/2023 8:06 AM REFRIGERATION SERVICE INSPECTOR Radha Iqbal M.D. ? 09/19/2023 ??8:13 AM [...] fellow participated in the procedure, and the configuration management consultant was present for the entire procedure. Radha Iqbal M.D. PROCEDURE/MINOR SURG ICAL ORDERABLES * WI ECHO EDMUNDO 2D PLC ONLY (09/19/2023 7:55 AM REFRIGERATION SERVICE INSPECTOR) Narrative Deja Barney M.D. - 09/19/2023 7:55 AM REFRIGERATION SERVICE INSPECTOR Radha Iqbal M.D. ? 09/19/2023 ??8:01 AM [...] fellow participated in the procedure, and the configuration management consultant was present for the entire procedure. Radha Iqbal M.D. ANESTHESIA ORDERABLE S * Airway (09/19/2023 7:52 AM REFRIGERATION SERVICE INSPECTOR) Narrative Radha Iqbal M.D. - 09/19/2023 7:52 AM REFRIGERATION SERVICE INSPECTOR Radha Iqbal M.D. ? 09/19/2023 ??8:56 AM [...] Radha Iqbal M.D. ANESTHESIA ORDERABLE S * WI ARTL CATH/CNULA MONITOR PERC, LDA ANE ARTERIAL LINE INSERTION (09/19/2023 7:43 AM REFRIGERATION SERVICE INSPECTOR) Narrative Deja Barney M.D. - 09/19/2023 7:43 AM REFRIGERATION SERVICE INSPECTOR Radha Iqbal M.D. ? 09/19/2023 ??8:19 AM [...] fellow participated in the procedure, and the configuration management consultant was present for the entire procedure. Deja Barney M.D. PROCEDURE/MINOR SURG ICAL ORDERABLES documented in this encounter Visit Diagnoses Not on filedocumented in this encounter Administered Medications Inactive Administered Medications - up to 3 most recent administrations Medication Order MAR Action Action Date Dose Rate Site acetaminophen injection intravenous, Administer over 15 Minutes, As needed, Starting on Sun09/19/23 at 1335, Anesthesia Intra-op Given 09/19/2023 1:35 PM REFRIGERATION SERVICE INSPECTOR 1,000 mg caffeine-sodium benzoate injection intravenous, As needed, Starting on Sun09/19/23 at 1712, Anesthesia Intra-op Given 09/19/2023 5:12 PM REFRIGERATION SERVICE INSPECTOR 250 mg calcium chloride injection intravenous, As needed, Starting on Sun09/19/23 at 1220, Anesthesia Intra-op Given 09/19/2023 4:44 PM REFRIGERATION SERVICE INSPECTOR 500 mg Given 09/19/2023 4:42 PM REFRIGERATION SERVICE INSPECTOR 500 mg Given 09/19/2023 3:54 PM REFRIGERATION SERVICE INSPECTOR 1,000 mg ceFAZolin injection 2,000 mg (ANCEF) 2,000 mg (rounded from 2,180 mg = 25 mg/kg ? 87.2 kg Dosing weight), intravenous, Once, On Sun09/19/23 at 0730, For 1 dose, Intra-Op, Preoperatively within 1 hour prior to surgical incision If needed, reconstitute vial per package insert instructions. See IVAG for administration guidelines., Drug Monitoring Program: Pharmacist to adjust medication dosing based on indication and drug clearance factors., Indications: Prophylaxis, surgical Given 09/19/2023 3:52 PM REFRIGERATION SERVICE INSPECTOR 2 g Given 09/19/2023 11:47 AM REFRIGERATION SERVICE INSPECTOR 2 g Given 09/19/2023 8:47 AM REFRIGERATION SERVICE INSPECTOR 2 g clevidipine 0.5 mg/mL bolus (CLEVIPREX) intravenous, As needed, Starting on Sun09/19/23 at 0931, Anesthesia Intra-op Given 09/19/2023 3:44 PM REFRIGERATION SERVICE INSPECTOR 0.125 m g Given 09/19/2023 9:31 AM REFRIGERATION SERVICE INSPECTOR 0.25 mg clevidipine 0.5 mg/mL infusion (CLEVIPREX) 0-21 mg/hr (0-42 mL/hr), intravenous, Continuous, Starting on Sun09/19/23 at 0645, In OR. 25 mg in 50 mL DO NOT RETURN TO REFRIGERATED STORAGE AFTER BEGINNING ROOM TEMPERATURE STORAGE, Initiate at: Other, Rate: Per Provider, Titrate at: Other, Titrate: Per Provider, Goal: Other MAP, MAP (Lower limit): Per Provider, MAP (Upper limit): Per Provider, Wean at: Other, Wean: Per Provider New Bag 09/19/2023 4:16 PM REFRIGERATION SERVICE INSPECTOR 2 mg/hr 4 mL/hr [place] Cardioplegia solution: potassium chloride 26 mEq, magnesium sulfate 2 g, lidocaine (PF) 130 mg, mannitol 3.25 g, sodium bicarbonate 13 mEq in electrolyte-A 1,000 mL (20% mannitol used) perfusion, Once in surgery, OR use only, Starting on Sun09/19/23 at 0710, For 1 dose, Intra-Op New Bag 09/19/2023 7:16 AM REFRIGERATION SERVICE INSPECTOR 2,000 mL dexAMETHasone injection (DECADRON) intravenous, As needed, Starting on Sun09/19/23 at 0848, Anesthesia Intra-op Given 09/19/2023 8:48 AM REFRIGERATION SERVICE INSPECTOR 4 mg electrolyte-A solution (PLASMA-LYTE A) intravenous, Continuous Infusion: Per Instructions PRN, Starting on Sun09/19/23 at 0732, Anesthesia Intra-op New Bag 09/19/2023 2:36 PM REFRIGERATION SERVICE INSPECTOR New Bag 09/19/2023 8:17 AM REFRIGERATION SERVICE INSPECTOR New Bag 09/19/2023 7:32 AM REFRIGERATION SERVICE INSPECTOR electrolyte-A solution (PLASMA-LYTE A) intravenous, Continuous Infusion: Per Instructions PRN, Starting on Sun09/19/23 at 0806, Anesthesia Intra-op New Bag 09/19/2023 3:36 PM REFRIGERATION SERVICE INSPECTOR New Bag 09/19/2023 8:06 AM REFRIGERATION SERVICE INSPECTOR ePHEDrine (PF) injection intravenous, As needed, Starting on Sun09/19/23 at 0845, Anesthesia Intra-op Given 09/19/2023 1:03 PM REFRIGERATION SERVICE INSPECTOR 5 mg Given 09/19/2023 12:58 PM REFRIGERATION SERVICE INSPECTOR 10 mg Given 09/19/2023 8:45 AM REFRIGERATION SERVICE INSPECTOR 5 mg EPINEPHrine 16 mcg/mL in NaCl 0.9% mL 250 mL infusion (ADRENALIN) 0-0.3 mcg/kg/min ? 87.2 kg (0-98.1 mL/hr), intravenous, Continuous, Starting on Sun09/19/23 at 0645, In OR Protect from light and avoid extravasation, Patient Type: Cardiovascular Surgery, Initiate at: Other, Rate: Per Provider, Titrate at: Other, Titrate: Per Provider, Goal: Other, Goal: Per Provider Restarted 09/19/2023 4:45 PM REFRIGERATION SERVICE INSPECTOR 0.02 mcg/kg/min 6.54 mL/hr Rate/Dose Change 09/19/2023 12:51 PM REFRIGERATION SERVICE INSPECTOR 0.01 mcg/kg/min 3 .27 mL/hr Rate/Dose Change 09/19/2023 12:48 PM REFRIGERATION SERVICE INSPECTOR 0.02 mcg/kg/min 6 .54 mL/hr fentaNYL injection (SUBLIMAZE) intravenous, As needed, Starting on Sun09/19/23 at 0740, Anesthesia Intra-op Given 09/19/2023 7:54 AM REFRIGERATION SERVICE INSPECTOR 150 mcg Given 09/19/2023 7:46 AM REFRIGERATION SERVICE INSPECTOR 50 mcg Given 09/19/2023 7:40 AM REFRIGERATION SERVICE INSPECTOR 50 mcg granisetron (PF) injection (KYTRIL) intravenous, As needed, Starting on Sun09/19/23 at 1347, Anesthesia Intra-op Given 09/19/2023 1:47 PM REFRIGERATION SERVICE INSPECTOR 1 mg heparin (porcine) 1,000 unit/mL injection intravenous, As needed, Starting on Sun09/19/23 at 0917, Anesthesia Intra-op Given 09/19/2023 9:17 AM REFRIGERATION SERVICE INSPECTOR 34,000 Units heparin (porcine) 1,000 unit/mL injection intravenous, As needed, Starting on Sun09/19/23 at 1135, Anesthesia Intra-op Given 09/19/2023 11:35 AM REFRIGERATION SERVICE INSPECTOR 5,000 Units insulin regular 1 Unit/mL in NaCl 0.9% [...] Factor: 0.03 Rate/Dose Change 09/20/2023 1:18 AM REFRIGERATION SERVICE INSPECTOR 0 Units/hr 0 mL/hr Rate/Dose Change 09/20/2023 12:02 AM REFRIGERATION SERVICE INSPECTOR 0 Units/hr 0 mL/h r Rate/Dose Verify 09/20/2023 12:01 AM REFRIGERATION SERVICE INSPECTOR 3.5 Units/hr 3.5 mL/hr ketamine injection (KETALAR) intravenous, As needed, Starting on Sun09/19/23 at 0741, Anesthesia Intra-op Given 09/19/2023 7:48 AM REFRIGERATION SERVICE INSPECTOR 30 mg Given 09/19/2023 7:47 AM REFRIGERATION SERVICE INSPECTOR 40 mg Given 09/19/2023 7:41 AM REFRIGERATION SERVICE INSPECTOR 10 mg lidocaine (PF) (cardiac) injection intravenous, As needed, Starting on Sun09/19/23 at 0746, Anesthesia Intra-op Given 09/19/2023 7:46 AM REFRIGERATION SERVICE INSPECTOR 100 mg methadone injection 26.2 mg (DOLOPHINE) 26.2 mg (rounded from 26.16 mg = 0.3 mg/kg ? 87.2 kg), intravenous, Once, On Sun09/19/23 at 0645, For 1 dose, Intra-Op, In OR, Restriction Criteria (Pharmacy will review and approve if criteria met): Prescribed by Pain Service Given 09/19/2023 8:59 AM REFRIGERATION SERVICE INSPECTOR 5 mg Given 09/19/2023 8:56 AM REFRIGERATION SERVICE INSPECTOR 5 mg Given 09/19/2023 8:54 AM REFRIGERATION SERVICE INSPECTOR 5 mg midazolam (PF) injection (VERSED) intravenous, As needed, Starting on Sun09/19/23 at 0738, Anesthesia Intra-op Given 09/19/2023 7:38 AM REFRIGERATION SERVICE INSPECTOR 2 mg mupirocin 2 % nasal ointment (BACTROBAN) nasal, As needed, Starting on Sun09/19/23 at 0821, Anesthesia Intra-op Given 09/19/2023 8:21 AM REFRIGERATION SERVICE INSPECTOR 0.5 g norepinephrine 16 mcg/mL in D5W 250 mL infusion 0-0.3 mcg/kg/min ? 87.2 kg (0-98.1 mL/hr), intravenous, Continuous, Starting on Sun09/19/23 at 0645, In OR Protect from light and avoid extravasation, Patient Type: Cardiovascular Surgery, Initiate at: Other, Rate: Per Provider, Titrate at: Other, Titrate: Per Provider, Goal: Other, Goal: Per Provider Rate/Dose Change 09/19/2023 4:51 PM REFRIGERATION SERVICE INSPECTOR 0.02 mcg/kg/min 6.54 mL/hr Restarted 09/19/2023 4:46 PM REFRIGERATION SERVICE INSPECTOR 0.01 mcg/kg/min 3.27 mL/ hr Rate/Dose Change 09/19/2023 3:27 PM REFRIGERATION SERVICE INSPECTOR 0.01 mcg/kg/min 3. 27 mL/hr phenylephrine 80 mcg/mL in NaCl 0.9% 250 mL infusion 0-1 mcg/kg/min ? 87.2 kg (0-65.4 mL/hr), intravenous, Continuous, Starting on Sun09/19/23 at 0645, Intra-Op, In OR 20 mg in 250 mL, Patient Type: Standard, initiate at: Other, Rate: Per Provider, Titrate at: Other, Titrate: Per Provider, Goal: Other, Goal: Per Provider Rate/Dose Change 09/19/2023 12:21 PM REFRIGERATION SERVICE INSPECTOR 0.3 mcg/kg/min 19.62 mL/hr Rate/Dose Change 09/19/2023 12:12 PM REFRIGERATION SERVICE INSPECTOR 0.6 mcg/kg/min 39 .24 mL/hr Rate/Dose Change 09/19/2023 12:00 PM REFRIGERATION SERVICE INSPECTOR 0.8 mcg/kg/min 52 .32 mL/hr phenylephrine injection intravenous, As needed, Starting on Sun09/19/23 at 0944, Anesthesia Intra-op Given 09/19/2023 12:14 PM REFRIGERATION SERVICE INSPECTOR 100 mc g Given 09/19/2023 10:46 AM REFRIGERATION SERVICE INSPECTOR 200 mcg Given 09/19/2023 10:31 AM REFRIGERATION SERVICE INSPECTOR 100 mcg phenylephrine injection intravenous, As needed, Starting on Sun09/19/23 at 1223, Anesthesia Intra-op Given 09/19/2023 3:10 PM REFRIGERATION SERVICE INSPECTOR 100 mcg Given 09/19/2023 1:50 PM REFRIGERATION SERVICE INSPECTOR 100 mcg Given 09/19/2023 1:27 PM REFRIGERATION SERVICE INSPECTOR 100 mcg propofol 10 mg/mL infusion (DIPRIVAN) intravenous, Continuous Infusion: Per Instructions PRN, Starting on Sun09/19/23 at 1243, Anesthesia Intra-op Restarted 09/19/2023 3:45 PM REFRIGERATION SERVICE INSPECTOR 40 mcg/kg/min 20.592 mL/hr Rate/Dose Change 09/19/2023 2:32 PM REFRIGERATION SERVICE INSPECTOR 40 mcg/kg/min 20.5 92 mL/hr New Bag 09/19/2023 1:43 PM REFRIGERATION SERVICE INSPECTOR 25 mcg/kg/min 12.87 mL/h r protamine injection intravenous, As needed, Starting on Sun09/19/23 at 1238, Anesthesia Intra-op Given 09/19/2023 12:38 PM REFRIGERATION SERVICE INSPECTOR 340 mg prothrombin complex conc (human) four factor infusion 1,577 Units (KCENTRA) 1,577 Units, intravenous, at 504 mL/hr, Once, On Sun09/19/23 at 1500, For 1 dose, Intra-Op, Restriction Criteria (Pharmacy will review and approve if criteria met): Urgent bleeding reversal of oral anticoagulation, excluding dabigatran New Bag 09/19/2023 3:54 PM REFRIGERATION SERVICE INSPECTOR 504 mL/hr rocuronium injection (ZEMURON) intravenous, As needed, Starting on Sun09/19/23 at 0748, Anesthesia Intra-op Given 09/19/2023 3:23 PM REFRIGERATION SERVICE INSPECTOR 30 mg Given 09/19/2023 7:48 AM REFRIGERATION SERVICE INSPECTOR 100 mg sugammadex injection (BRIDION) intravenous, As needed, Starting on Sun09/19/23 at 1712, Anesthesia Intra-op Given 09/19/2023 5:12 PM REFRIGERATION SERVICE INSPECTOR 200 mg tranexamic acid 8 mg/mL in NaCl 0.9% 250 mL infusion (CYKLOKAPRON) 1.5 mg/kg/hr ? 87.2 kg (16.35 mL/hr, rounded to 16.4 mL/hr), intravenous, Continuous, Starting on Sun09/19/23 at 0645 Restarted 09/19/2023 5:19 PM REFRIGERATION SERVICE INSPECTOR 2 mg/kg/hr 21.8 mL/hr Rate/Dose Change 09/19/2023 5:16 PM REFRIGERATION SERVICE INSPECTOR 2 mg/kg/hr 21.8 mL /hr New Bag 09/19/2023 9:26 AM REFRIGERATION SERVICE INSPECTOR 1.5 mg/kg/hr 16.35 mL/hr tranexamic acid 850 mg in NaCl 0.9% IVPB 850 mg (rounded from 872 mg = 10 mg/kg ? 87.2 kg), intravenous, at 176 mL/hr, Administer over 20 Minutes, Once, On Sun09/19/23 at 0645, For 1 dose New Bag 09/19/2023 9:25 AM REFRIGERATION SERVICE INSPECTOR 850 mg tranexamic acid pump prime 40 mg (CYKLOKAPRON) 40 mg, miscellaneous, Once, On Sun09/19/23 at 0645, For 1 dose, Intra-Op, Pump Prime (Syringe); pharmacy sent to OR Given 09/19/2023 9:44 AM REFRIGERATION SERVICE INSPECTOR 40 mg Transfuse autologous RBC (Cell Salvage) : Routine New Bag 09/19/2023 11:33 AM REFRIGERATION SERVICE INSPECTOR Transfuse autologous RBC (Cell Salvage) : Routine New Bag 09/19/2023 1:28 PM REFRIGERATION SERVICE INSPECTOR Transfuse Fresh Frozen Plasma : Routine New Bag 09/19/2023 1:24 PM REFRIGERATION SERVICE INSPECTOR Transfuse Platelets : Routine New Bag 09/19/2023 1:09 PM REFRIGERATION SERVICE INSPECTOR Transfuse Platelets : Routine New Bag 09/19/2023 2:15 PM REFRIGERATION SERVICE INSPECTOR Transfuse Platelets : Routine New Bag 09/19/2023 4:58 PM REFRIGERATION SERVICE INSPECTOR Transfuse Pooled Cryoprecipitate: Routine New Bag 09/19/2023 3:51 PM REFRIGERATION SERVICE INSPECTOR Transfuse Pooled Cryoprecipitate: Routine New Bag 09/19/2023 3:53 PM REFRIGERATION SERVICE INSPECTOR Transfuse Red Blood Cells : Routine New Bag 09/19/2023 10:13 AM REFRIGERATION SERVICE INSPECTOR Transfuse Red Blood Cells : Routine New Bag 09/19/2023 2:00 PM REFRIGERATION SERVICE INSPECTOR Transfuse Red Blood Cells : Routine New Bag 09/19/2023 3:50 PM REFRIGERATION SERVICE INSPECTOR Transfuse Red Blood Cells : Routine New Bag 09/19/2023 3:23 PM REFRIGERATION SERVICE INSPECTOR documented in this encounter Additional Health Concerns Assessment Noted Time PHQ-9 Depression Total Score: 1 09/10/20 23 2:06 PM CDT documented as of this encounter Care Teams Care Trainer Relationship Specialty Start Date End Date Elsewhere, Pcp PCP - General Internal Medicine 08/19/23 09/27/23 documented as of this encounter
--- OUTSIDE RECORDS SUMMARY | 2023-12-04 12:17 | XMS_ITS | Encounter Summary ---
Author Name Unknown Organization [facility] Address [address] [place] [address] Care Team Providers Care Core Man Name Role Phone Elsewhere, Pcp Primary Care Provider Unavailabl e Reason for Visit * Auth/Cert (Routine) Specialty Diagnoses / Procedures Referred By Sebas t Referred To Contact Diagnoses Stenosis Aortic Valve Acquired Stenosis Aortic Valve Acquired [I35.0] Procedures ND RPLC AORTIC VLV W PROSTH VLV ND COR ART BYPASS 1 COR JORDAN GRAFT ND REOP COR ART BYP/VALVE PROC ND ENDO SURG W VA HARVEST CABG ND EXCL DAHIANA OPN OTH PX ANY METH REPLACEMENT AORTIC VALVE 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 - REDO LIGATION LEFT ATRIAL APPENDAGE ISOLATION PULMONARY VEIN Referral ID Status Reason Start Date Expiration Date Visits Re quested Visits Authorized [id number] 1 1 Encounter Details Date Type Department Care Team (Late st Contact Info) Description 09/19/2023 7:00 AM REHABILITATION TEAM LEAD - 09/19/2023 3:27 PM REHABILITATION TEAM LEAD Surgery RST ROMB MAIN OR [address] [place] [phone] Sarah Miller M.D., M.P.H. [address] [place] [phone] REPLACEMENT AORTIC VALVE, POSSIBLE AORTIC ROOT ENLARGEMENT. (On-X Conform 23mm Valve) Social History Tobacco Use Types Packs/Day Years [...] your living situation today? I have a [facility] place to live 08/29/2023 Sex and Gender Information Value Date Recorded Sex Assigned at Male 08/29/2023 11:06 AM CDT Gender Identity Male 08/29/2023 11:06 AM CDT Sexual Orientation Straight 08/29/2023 11 :06 AM CDT documented as of this encounter Last Filed Vital Signs Vital Sign Reading Time Taken Comments Blood Pressure 140/80 09/19/2023 7:13 AM REHABILITATION TEAM LEAD Pulse 72 09/19/2023 7:13 AM REHABILITATION TEAM LEAD Temperature 37 ??C (98.6 ??F) 09/19/2023 7:13 AM REHABILITATION TEAM LEAD Respiratory Rate 16 09/19/2023 7:13 AM REHABILITATION TEAM LEAD Oxygen Saturation 97% 09/19/2023 7:13 AM REHABILITATION TEAM LEAD Inhaled Oxygen Concentration - - Weight 85.8 kg (189 lb 2.5 oz) 09/19/2023 7:13 A M REHABILITATION TEAM LEAD Height 173 cm (5' 8.11) 09/19/2023 7:13 AM REHABILITATION TEAM LEAD Body Mass Index 29.37 09/26/2023 7:46 AM REHABILITATION TEAM LEAD documented in this encounter Discharge Summaries * Ginette Greene P.A.-C., M.S. - 09/26/2023 2:42 PM CST DISCHARGE SUMMARY BRIEF OVERVIEW Discharge Provider: Sarah Miller M.D. Primary Care Providers: Elsewhere, Pcp (General) No address on file Patient Care Team: Cresencio Medina M.BJarrettB.SJarrett as External Primary Care Physician (Internal Medicine) [...] (Acute Kidney Injury) (HCC) Hyperkalemia 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 Therapy Custodial Antiplatelet Device Cardiac Status Post Cardiac Surgery [...] Follow-up recommendations post Cardiac Surgery Follow-up Visit: [facility] via a video visit on 10/03, Primary Care Provider appointment on 10/01 with INR, Primary Water Reuse Program Manager appointment TBD, referral sent. INR appointment on 09/28 at local lab. Follow-up Testing: Post-operative testing per the discretion of the PCP or Water Reuse Program Manager. Monitor INR at discretion of SNF provider [...] as needed for optimal blood pressure control. [place] [employer] Guidelines for individuals with coronary [...] atrial fibrillation or per recommendations by the Water Reuse Program Manager. Antiplatelet Therapy: Aspirin 81 mg daily recommended [...] surgical incision sites for healing. Contact [facility] Cardiovascular Surgery [phone] with any concerns. Anticoagulation: Warfarin (Coumadin initiated) [...] the cardiac rehab program. Patient referred to: [facility] [address] [place] [phone] Recommend that the patient check with insurance company to verify coverage of the cost of cardiac rehabilitation program visits. COVID-19: Due to the current COVID-19 pandemic, the patient was instructed to monitor for any new fever, cough, shortness of breath, sore throat, diarrhea, respiratory distress, or chills or muscle aches. Theyare to contact [facility] COVID-19 nurse line ([phone]) with any concerns. Reviewed the best measures [...] your nose and mouth OUTPATIENT FOLLOWUP [facility] Appointments: Scheduled Appointments 10/03/2023 1:30 PM [facility] Cardiovascular Surgery For appointment details refer to your Patient Appointment Guide. Outside [facility] Appointments: Consults and Follow-ups to Schedule Take a copy of this after visit summary to your appointment(s). [facility] [place] October 01, 2023 - Sunday -- 1:15 Arrival - INR blood test at [facility]3]. October 01, 2023 - Sunday -- 2:10 Arrival - Hospital Follow-Up with, primary care provider Dr. Cresencio Medina, at [facility]3]. RECOMMENDATIONS: *A referral for a Water Reuse Program Manager will need to be placed by your PCP, please schedule this visit 1-3 months after discharge. [facility] You may have outpatient appointments at [facility] that changed during your hospitalization. Referto your [facility] Patient Appointment Guide (PAG) for the most current schedule of appointments and detailed instructions of tests/procedures. Call [phone], if you did not receive an PAG or need to CANCEL any [facility] appointment(s). DISCHARGE MEDICATIONS: At the time of dismissal, pain medications (examples include oxycodone, Dilaudid, Tramadol, etc.)will be prescribed to you if needed. Duration will be determined on a xnsp-sp-qlbo basis and will not exceed 2 weeks. [...] M.P.H. Primary Jenny Stanford M.B., B.Ch., B.A.O. Load Blocker Dismissal Vitals: Admission Weight: 85.8 kg Blood [...] 1.3 cm atrial appendage without mural thrombus. Deputy Sheriff K9 Handler sections are submitted for microscopy in cassette A1. Grossed by Teresa Qureshi M.S., PA([facility]). B. Received fresh labeled with the patient's [...] up to 0.2 cm in greatest size. Deputy Sheriff K9 Handler sections are submitted for microscopy in cassette B1, following decalcification. Grossed by Teresa Qureshi M.S., PA([facility]). Block Summary A Heart, left atrial [...] were provided to the patient and caregiver(s). BILITATION TEAM LEAD documented in this encounter Discharge Instructions * Discharge Instructions* Anatoliy Iqbal - 09/26/2023 8:49 AM REHABILITATION TEAM LEAD You were discharged from the [facility] Cardiovascular Surgery - [facility]. Please identify this service name if you call with questions after hospitalization. BILITATION TEAM LEAD documented in this encounter Medications at Time [...] M.H.A., R.N., GRISEL - 09/26/2023 2:04 PM REHABILITATION TEAM LEAD SUBJECTIVE financial sales manager Eloisa spoke with Mrs. Harris after nursing informed CM that patient no longer wants a mcc facility. The patient has talked with his son and daughter and they will providecare for him at home. OBJECTIVE To have a decision made by patient and family about already accepted mcc facility versus home with family. ASSESSMENT / PLAN Mr. Harris will now discharge home with family . SNF has been cancelled and medical team is aware. Damon Kraus, M.H.A., R.N., GRISEL 09/26/23 BILITATION TEAM LEAD * Neelam Villalobos O.T., O.T.Petra - 09/26/2023 1:43 PM CST Occupational Therapy Acute Hospital Inpatient Treatment SUBJECTIVE Patient's Name: Jong Harris Referring/Attending Provider: Sarah Miller M.D. Medical Diagnosis: Stenosis Aortic Valve Acquired [I35.0] Acquired Aortic Valve Disorder [I35.9] Reason for Referral: Occupational Therapy Evaluation and Treatment OT general acute Onset Date: 09/19/23 Payor: [facility] / Plan: [employer] MEDICARE ADVANTAGE [place] PPO [...] Education provided today: as noted Outcome Measures [facility] Inpatient Short Form: Putting on and taking [...] Standardized Score: 51.12 Interpretation: Clinicians answer the [facility] Inpatient Short Form based on observed patient [...] (min): 15 min Neelam Villalobos O.T., O.TRomeo BILITATION TEAM LEAD * Aspen Greene P.T.A. - 09/26/2023 1:32 PM CST Physical Therapy Inpatient Treatment Note SUBJECTIVE Patient's Name: Jong Harris Referring/Attending: Sarah Miller M.D. Medical Diagnosis: Stenosis Aortic Valve Acquired [I35.0] Acquired Aortic Valve Disorder [I35.9] Reason for Referral: PT Evaluate and Treat General PT acute Onset Date: 09/19/23 Payor: [facility] / Plan: [employer] MEDICARE ADVANTAGE [place] PPO [...] an injury with the fall?: No OBJECTIVE Jonggina RICHARD modalities were discussed during their therapy session. [...] needs met and questions answered. Outcome Measures [facility] Inpatient Short Form: -[facility] Basic Mobility (V.2) How much help from [...] Climbing 3-5 steps with a railing?: None -[facility] Basic Mobility (V.2) Raw Score: 24 -[facility] Basic Mobility (V.2) Standardized Score: 57.68 Interpretation: Clinicians answer the -[facility] Inpatient Short Form based on observed patient [...] Next Inpatient Appointment: 09/27/23 PT Plan Comments: [place] with ambulation. Treatment interventions may include: Treatment/Interventions: Therapeutic exercise, Therapeutic functional activity, Neuromuscular re-education, Gait training KINDERGARTNER Visit Trackin Billing: Time Spent with Patient Therapeutic Interventions Gait Training (min): 20 min Therapeutic Activity (min): 20 min Time Tracking Total Timed Units (min): 40 min Total Treatment Time (min): 40 min Aspen Greene P.T.A. BILITATION TEAM LEAD Associated attestation - Lida Woodward P.T., D.P.TJarrett - 09/27/2023 11:06 AM REHABILITATION TEAM LEAD The patient has dismissed from the hospital. Current functional status is documented in this note. Further skilled therapy is recommended at this time. Patient is discharged from acute physical therapy. Lida Woodward P.T., D.P.TJarrett * Ginette Greene P.A.-C., M.S. - 09/26/2023 [...] stable and planned to discharge to a mcc facility on 09/26. 24 Hour Events: Jong [...] Glomerular Filtration Rate (GFR) 30 To 44 ([facility]) #3 Hyperlipidemia On Treatment #4 Benign Prostatic Hyperplasia Without Obstruction #5 Atrial Fibrillation Paroxysmal ([facility]) #6 Diabetes Mellitus Type 2 ([facility]) #7 Anemia In Chronic Kidney Disease #8 Hemiplegia Dominant Side Right ([facility]) #9 Hypertension Essential Primary #10 Stroke Cerebrovascular Accident Personal History #11 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 #12 Prosthesis Aortic Valve #13 Coronary Artery Disease Without Angina Pectoris #14 Anemia Posthemorrhagic Acute (Blood Loss Anemia) #15 Failure Renal Acute (Acute Kidney Injury) ([facility]) #16 Hyperkalemia #17 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 #18 Therapy Custodial Antiplatelet #19 Device Cardiac Status Post #20 [...] of care of this patient with the senior information security consultant surgeon, Dr. Miller. Anticipated dismissal date: 09/27. Anticipated destination: SNF. PT/OT following. Barriers to discharge: MANJEET Facility placement Medication reconciliation completed. BILITATION TEAM LEAD * Eloisa Oro M.S.N., Alexis, R.N., GRISEL - 09/26/2023 7:44 AM REHABILITATION TEAM LEAD The patient is being prepared to discharge on 09/26/2023 at if medically ready for transfer. Contact CASE MANAGEMENT if time needs to be changed. Transportation will be provided by family. . Destination - Admitted Since 09/19/2023 Service Provider Selected Services Address Phone Fax Patient Preferred [facility] [address] [place] [address] [phone] -- Contact: Admissions Transportation oxygen: No oxygen [...] be completed. - Will continue to follow. BILITATION TEAM LEAD * Ginette Greene P.A.-C., M.S. - 09/25/2023 3:42 PM CST [place] Harris is a 73 [...] Glomerular Filtration Rate (GFR) 30 To 44 ([facility]) #3 Hyperlipidemia On Treatment #4 Benign Prostatic Hyperplasia Without Obstruction #5 Atrial Fibrillation Paroxysmal ([facility]) #6 Diabetes Mellitus Type 2 ([facility]) #7 Anemia In Chronic Kidney Disease #8 Hemiplegia Dominant Side Right ([facility]) #9 Hypertension Essential Primary #10 Stroke Cerebrovascular Accident Personal History #11 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 #12 Prosthesis Aortic Valve #13 Coronary Artery Disease Without Angina Pectoris #14 Anemia Posthemorrhagic Acute (Blood Loss Anemia) #15 Failure Renal Acute (Acute Kidney Injury) ([facility]) #16 Hyperkalemia #17 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 #18 Therapy Warehouse Loader Antiplatelet #19 Device Cardiac Status Post #20 [...] of care of this patient with the senior information security consultant surgeon, Dr. Miller. Anticipated dismissal date: 09/26. Anticipated destination: SNF. PT/OT following. Barriers to discharge: MANJEET Facility placement Medication reconciliation completed. BILITATION TEAM LEAD * Yun Childs M.S.N., R.N. - 09/25/2023 2:07 PM CST SUBJECTIVE The test case developer met with the patient and his to discuss the accepted and pending referrals. The patient's asked the test case developer to call the [facility] for possibility of taking patient because it is their first preference. [facility] and [facility] message for [...] following plan. Patient's anticipated discharge disposition is: Senior Care Facility Referrals sent. [place] [facility] sent to [facility]. Transportation upon dismissal will be provided by family-- . frog farmer encouraged the patient to reach out with any questions/concerns. Damon Moreno, R.N. 09/25/23 BILITATION TEAM LEAD * Lida Woodward P.T., D.P.T. - 09/25/2023 11:42 AM CST Physical Therapy Inpatient Treatment Note SUBJECTIVE Patient's Name: Jong Harris Referring/Attending: Sarah Miller M.D. Medical Diagnosis: Stenosis Aortic Valve Acquired [I35.0] Acquired Aortic Valve Disorder [I35.9] Reason for Referral: PT Evaluate and Treat PT eval and treat cardiac Onset Date: 09/19/23 Payor: AARP / Plan: [employer] MEDICARE ADVANTAGE [place] PPO [...] needs met and questions answered. Outcome Measures -[facility] Inpatient Short Form: -[facility] Basic Mobility (V.2) How much help from [...] 3-5 steps with a railing?: A Little AM-[facility] Basic Mobility (V.2) Raw Score: 20 -[facility] Basic Mobility (V.2) Standardized Score: 43.99 Interpretation: Clinicians answer the -[facility] Inpatient Short Form based on observed patient [...] (min): 20 min Lida Woodward P.T., D.P.T. BILITATION TEAM LEAD * Pamela Medina Pharm.D., R.Ph. - 09/25/2023 10:26 AM CST Warfarin [...] the hospital. Pamela Medina Pharm.D., R.Ph. Contact [phone] with any questions about this note. BILITATION TEAM LEAD * Pamela Medina Pharm.D., R.Ph. - 09/25/2023 10:15 AM CST Clinical Pharmacist Progress Note Jong Harris is a 73 y.o. male admitted on 09/19/2023 who now presents to [id number]/614-P forpostoperative care. Procedures (current encounter): 09/19: CABG [...] seble lasix 40 mg BID Neuro: continues KINDERGARTNER ropinirole. Endo: BG goal < 180, DCS following and has SSI available, has been intermittently hyperglycemic.Advancing diet as tolerated. Recommend starting insulin glargine 5 units daily. MISC: persistent hiccups, trialing PRN baclofen 2.5 mg TID. Would recommend trialing metoclopramide5 mg Q 8 hours (renally adjusted) instead due to less risk of REGIONAL FACILITIES SPECIALIST depression Prophylaxis: heparin subQ/warfarin, PPI (home med), +BR Home scheduled meds on hold: cholecalciferol, cyanocobalamin, ferrous sulfate, metformin Pamela Medina Pharm.D., R.Ph. BILITATION TEAM LEAD * Laila Basurto P.A.-C. - 09/24/2023 3:32 [...] Glomerular Filtration Rate (GFR) 30 To 44 ([facility]) #6 Hyperlipidemia On Treatment #7 Benign Prostatic Hyperplasia Without Obstruction #8 Atrial Fibrillation Paroxysmal ([facility]) #9 Diabetes Mellitus Type 2 ([facility]) #10 Anemia In Chronic Kidney Disease #11 Hemiplegia Dominant Side Right ([facility]) #12 Hypertension Essential Primary #13 Stroke Cerebrovascular Accident Personal History #14 Anemia Posthemorrhagic Acute (Blood Loss Anemia) #15 Failure Renal Acute (Acute Kidney Injury) ([facility]) #16 Hyperkalemia #17 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 #18 Therapy Custodial Antiplatelet #19 Device Cardiac Status Post #20 [...] of care of this patient with the senior information security consultant surgeon, Dr. Miller. Anticipated dismissal date: 09/24. Anticipated destination: Home self-care, Home with home health care, or SNF. PT/OT following- patient will not haveavailable assistance at home after his 's surgery next week. SW following for disposition planning- have sent referrals for SNF and [facility], unsure whether he will qualify. Barriers to discharge: Diuresis Medication optimization MANJEET Facility placement Dismissal testing May require homegoing oxygen Medication reconciliation completed. BILITATION TEAM LEAD * Lida Woodward P.T., D.P.T. - 09/24/2023 3:28 PM CST 09/24/23 1528 Reason Therapy Missed Reason Therapy Missed At test/procedure Patient away at ECHO.. PT to follow up as able. BILITATION TEAM LEAD * Neelam Villalobos O.T., O.T.Petra - 09/24/2023 1:56 PM CST Occupational Therapy Acute Hospital Inpatient Treatment SUBJECTIVE Patient's Name: Jong Emilia Harris Referring/Attending Provider: Sarah Miller M.D. Medical Diagnosis: Stenosis Aortic Valve Acquired [I35.0] Acquired Aortic Valve Disorder [I35.9] Reason for Referral: Occupational Therapy Evaluation and Treatment OT eval and treat cardiac Onset Date: 09/19/23 Payor: [facility] / Plan: [employer] MEDICARE ADVANTAGE [place] PPO [...] Discussed patient's care with PT Outcome Measures [facility] Inpatient Short Form: Putting on and taking [...] Standardized Score: 40.22 Interpretation: Clinicians answer the -[facility] Inpatient Short Form based on observed patient [...] Assistance with housekeeping, Assistance withtransportation, Assistance with patient financial advocate, Assistance with showering/bathing Recommended Adaptive Equipment - [...] Time (min): 10 min Neelam Villalobos O.T., O.T.Petra BILITATION TEAM LEAD * Eze Sevilla R.RMilagros., L.R.T. - 09/24/2023 1:46 PM CST 09/24/23 [...] answered. Electronically signed by: Cory Sevilla R.R.T., Adonis 09/24/23 1:47 PM REHABILITATION TEAM LEAD BILITATION TEAM LEAD * Paemla Medina Pharm.D., R.Ph. - 09/24/2023 10:27 AM CST Warfarin [...] the hospital. Pamela Medina Pharm.D., R.Ph. Contact [phone] with any questions about this note. BILITATION TEAM LEAD * Pamela Medina Pharm.D., R.Ph. - 09/24/2023 10:19 AM CST Clinical Pharmacist Progress Note Jong Harris is a 73 y.o. male admitted on 09/19/2023 who now presents to [id number]/614-P forpostoperative care. Procedures (current encounter): 09/19: CABG [...] inaccurate UOP d/t undocumented voids Neuro: continues KINDERGARTNER ropinirole. Endo: BG have been < 180, DCS following and has SSI available. Prophylaxis: heparin subQ/warfarin, PPI (home med) Home scheduled meds on hold: cholecalciferol, cyanocobalamin, ferrous sulfate, metformin Pamela Medina, Pharm.D., R.Ph. BILITATION TEAM LEAD * Eloisa Oro M.S.N., M.H.A., R.N., [facility] - 09/24/2023 10:19 AM REHABILITATION TEAM LEAD SUBJECTIVE frog farmer Eloisa met with Mr and Mrs Harris to discuss the need for mcc rehab at discharge. A list of insurance approved facilities was given. The below referrals have been sent. OBJECTIVE To obtain referrals for mcc facilities at discharge. ASSESSMENT / PLAN Service Provider Request Status Selected Services Address Phone Fax Patient Preferred [facility] [place] Pending - Request Sent N/A [address] [facility] [phone] -- [facility] [place] Pending - Request Sent N/A [address] [facility] [phone] -- [facility] Pending - Request Sent N/A [address], [place] [address] [phone] -- [facility] Declined [facility] is CLOSED N/A [address] [facility] [address] [place] [phone] -- Current Capacity last updated by [place]a [place] on 08/15/2023 1413 [facility] has issued notice of closure. We cannot accept any new admissions. We will be having a short-term, private pay option in assisted living for clients who need PT/OT/ST (will be billed to their insurance). Referrals for this area need to go to [facility]. This area will open 10/12/[address] [facility] Declined Facility cannot provide for patient's needs N/A [address] [facility] [phone] -- -- Damon Kraus, M.H.A., R.N., GRISEL 09/24/2023 BILITATION TEAM LEAD * Laila Basurto P.A.-C. - 09/23/2023 4:38 [...] Glomerular Filtration Rate (GFR) 30 To 44 ([facility]) #6 Hyperlipidemia On Treatment #7 Benign Prostatic Hyperplasia Without Obstruction #8 Atrial Fibrillation Paroxysmal ([facility]) #9 Diabetes Mellitus Type 2 ([facility]) #10 Anemia In Chronic Kidney Disease #11 Hemiplegia Dominant Side Right ([facility]) #12 Hypertension Essential Primary #13 Stroke Cerebrovascular Accident Personal History #14 Anemia Posthemorrhagic Acute (Blood Loss Anemia) #15 Failure Renal Acute (Acute Kidney Injury) ([facility]) #16 Hyperkalemia #17 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 #18 Therapy Custodial Antiplatelet #19 Thrombocytopenia Secondary #20 Device Cardiac [...] of care of this patient with the senior information security consultant surgeon, Dr. Miller. Anticipated dismissal date: 09/23-09/24. Anticipated destination: Home self-care or SNF. PT/OT following- patient has residual right-sided weakness from his stroke and will not have available assistance at home after his 's surgery next week. SW following for disposition planning. Barriers to discharge: INR Medication optimization MANJEET Dismissal testing May require homegoing oxygen Medication reconciliation completed. BILITATION TEAM LEAD * Merle Reyes, Pharm.D., R.Ph. - 09/23/2023 2:17 PM CST Clinical Pharmacist Progress Note Jong Harris is a 73 y.o. male admitted on 09/19/2023 who now presents to [id number]-P forpostoperative care. Procedures (current encounter): 09/19: CABG [...] Renal: tamsulosin and finasteride resumed Neuro: continues KINDERGARTNER ropinirole. Endo: BG have been < 180, DCS following and has SSI available. Prophylaxis: heparin subQ/warfarin, PPI (home med) Home scheduled meds on hold: cholecalciferol, cyanocobalamin, ferrous sulfate, metformin Merle Reyes, D., R.Ph. BILITATION TEAM LEAD * Marcela Lee APRN, C.N.P., M.S.N. - 09/22/2023 11:04 PM CST [...] PRBC this morning for Hgb of 7.3. BILITATION TEAM LEAD * Laila Basurto P.A.-C. - 09/22/2023 4:00 [...] removal. An actuation system was not present. BILITATION TEAM LEAD * Laila Basurto P.A.-C. - 09/22/2023 3:33 PM CST SUBJECTIVE Jong Harris is a [...] previous stroke. They are considering SNF vs [facility] for discharge planning. OBJECTIVE I have reviewed [...] & Screen Expiration 09/25/2023 23:59 Testing Location [place] CBC without Differential Collection Time: 09/22/23 7:04 [...] Glomerular Filtration Rate (GFR) 30 To 44 ([facility]) #3 Hyperlipidemia On Treatment #4 Benign Prostatic Hyperplasia Without Obstruction #5 Atrial Fibrillation Paroxysmal ([facility]) #6 Diabetes Mellitus Type 2 ([facility]) #7 Anemia In Chronic Kidney Disease #8 Hypertension Essential Primary #9 Stroke Cerebrovascular Accident Personal History #10 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 #11 Prosthesis Aortic Valve #12 Coronary Artery Disease Without Angina Pectoris #13 Anemia Posthemorrhagic Acute (Blood Loss Anemia) #14 Failure Renal Acute (Acute Kidney Injury) ([facility]) #15 Hyperkalemia #16 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 #17 Therapy Custodial Antiplatelet Neuro: No acute concerns. Pain is [...] No sign of active bleed. Platelets 129 [id number]. ID/Skin: No acute concerns. Post-operative antibiotic regimen complete. Maintain sternal incision wound vac until POD 5. Afebrile, WBC WNL. Will remove RIJ this evening. Continue LEATHA wraps to lower extremities when out of bed. Code Status: Full Code Disposition: Continue to monitor on the PCU. I directly examined/reviewed the plan of care of this patient with the senior information security consultant surgeon, Dr. Miller. Anticipated dismissal date: 09/23-09/24. Anticipated destination: Pending PT/OT evaluation. PT/OT consulted for discharge planning- patient has residual right- sided weakness from his stroke and will not have available assistance at home after his 's surgery next week. SW following for disposition planning. Barriers to discharge: INR Medication optimization MANJEET Dismissal testing May require homegoing oxygen Medication reconciliation completed. BILITATION TEAM LEAD * Purvi Wu Pharm.D., R.Ph. - 09/22/2023 12:37 PM CST Warfarin [...] until discharge from the hospital. Purvi Wu PharmRomeo, R.Ph. BILITATION TEAM LEAD * Dwayne Lew PharmRomeo, R.Ph. - 09/21/2023 10:04 AM REHABILITATION TEAM LEAD Clinical Pharmacist Progress Note Jong Harris is a 73 y.o. male admitted on 09/19/2023 who now presents to [id number]/566-P forpostoperative care. Procedures (current encounter): 09/19: CABG [...] Allen removed. Neuro: pain well controlled, continues KINDERGARTNER ropinirole. Endo: BG have been < 180, DCS following and has SSI available. Prophylaxis: heparin subQ, PPI (home med) Home scheduled meds on hold: cholecalciferol, cyanocobalamin, ferrous sulfate, metformin Matthias Lew, PharmJarrettDJarrett, R.Ph. BILITATION TEAM LEAD * Enmanuel Edward P.A.-C. - 09/21/2023 4:19 [...] Glomerular Filtration Rate (GFR) 30 To 44 ([facility]) #5 Hyperlipidemia On Treatment #6 Benign Prostatic Hyperplasia Without Obstruction #7 Atrial Fibrillation Paroxysmal ([facility]) #8 Diabetes Mellitus Type 2 ([facility]) #9 Anemia In Chronic Kidney Disease #10 Hypertension Essential Primary #11 Stroke Cerebrovascular Accident Personal History #12 Coronary Artery Disease Without Angina Pectoris #13 Anemia Posthemorrhagic Acute (Blood Loss Anemia) #14 Failure Renal Acute (Acute Kidney Injury) ([facility]) #15 Hyperkalemia #16 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 Neuro: Sleep: Melatonin [...] care of this patient with the critical geriatric care manager. Anticipated dismissal date: TBD. Anticipated destination: Home [...] risk. Continue to follow PROTECT algorithm protocol. BILITATION TEAM LEAD * Kari Hook MDIV - 09/20/2023 1:58 PM CST [facility] Spiritual Care Progress Note Patient: Jong Harris Age:73 y.o. Location: [id number] Reason(s) for encounter: Spiritual Care contact to [...] to verbally process surfacing emotions. Spiritual Assessment Cheondoism Identification / Spiritual Practices: [employer] He attempted to find the name of his temple but could not remember. Coping and support: His and son had left before our visit. He attempted to use avoidance, changing the topic, and humor to cope with tough questions and good school counselor. Patient named his avoidant coping skills [...] current medical condition and life stage. Provided hindu reading material to sustain patient's truman/practice while in hospital Facilitated hindu/spiritual practices (prayer, blessing, sacred texts, hindu item) with theaim to reinforce patient's spiritual [...] requested. Chaplains can be contacted by paging [phone] ([place]) or [phone] ([place]). BILITATION TEAM LEAD * Dwayne Lew, Pharm.D., R.Ph. - 09/20/2023 10:02 AM REHABILITATION TEAM LEAD Clinical Pharmacist Progress Note Jong Harris is a 73 y.o. male admitted on 09/19/2023 who now presents to [id number]/566-P forpostoperative care. Procedures (current encounter): 09/19: CABG [...] hold: cholecalciferol, cyanocobalamin, ferrous sulfate, metformin Matthias Zahraaowenko, Pharm.D., R.Ph. BILITATION TEAM LEAD * Bryce Wills M.D. - 09/20/2023 7:06 [...] type 2, was on metformin at home (RtX2l=5.2) Heme: extensive bleeding in OR, required plt, cryo and Kcentra, normal coagulation parameters now, will follow up on labs and watch for chest tube output Will proceed with anticoagulation per cardiac surgery team recommendations ID: continue perioperative antibiotics PPx: pantoprazole prophylaxis T/L/D: RIJ/PA catheter, 3 tubes, Tiffany Wills ICU Fellow [id number] BILITATION TEAM LEAD Associated attestation - Reji Kang M.D. - 09/20/2023 5:43 PM REHABILITATION TEAM LEAD I saw and evaluated the patient, participating [...] Present Illness: The patient is located in [facility], room 730. I have seen and evaluated [...] Epicardial wires were/were not placed with a flandreau rhythm of SR. Ultimately, due to persistent [...] Full Code Critical care time: 45 min BILITATION TEAM LEAD * Yuriy Wilson R.R.T., L.R.T. - 09/19/2023 5:18 PM CST 1710: Pt. Arrived from OR intubated w/ 8.0 ett , secured at 22cm @ lip with twill tie. Pt. Placed on ASV 100%, peep 8, fio2 50%. Will adjust settings and wean as appropriate based on patients condtion. BILITATION TEAM LEAD * Garrett Bahena PharmJarrettD., R.Ph. - 09/19/2023 [...] 130/80 CKD 3b Garrett Bahena Pharm.D., R.Ph. BILITATION TEAM LEAD documented in this encounter H&P Notes * Jenny Stanford M.B., B.Ch., B.A.O. - 09/19/2023 6:36 AM CST INTERVAL HISTORY AND PHYSICAL PRE-PROCEDURE UPDATE H&P reviewed. The patient was examined and there are no significant changes to the H&P. Misty Howe, B.Ch., B.A.O. BILITATION TEAM LEAD Source Note - Elvi Lundberg MPAS, P.A.-C. - 09/18/2023 9:45 AM REHABILITATION TEAM LEAD Jong Harris : 1950 Visit Date: 09/18/23 REFERRING PHYSICIAN: No ref. provider found Home flare maker: [facility] primary care provider: Dr. Adam Cotto [place], [place] SUBJECTIVE CHIEF COMPLAINT / REASON FOR [...] 08/19/2023 for additional information. Patient presented to [place] ED for chest discomfort on 08/19/2023. Patient [...] CORONARY ANGIOGRAPHY; Surgeon: Ezequiel Jack M.D.; Location: [facility] Family History Problem Relation Age of [...] Glomerular Filtration Rate (GFR) 30 To 44 ([facility]) #3 Hypertension Essential Primary #4 Atrial Fibrillation Paroxysmal ([facility]) #5 Hemiplegia Dominant Side Right ([facility]) #6 Anemia In Chronic Kidney Disease #7 Benign Prostatic Hyperplasia Without Obstruction #8 Diabetes Mellitus Type 2 ([facility]) #9 Hyperlipidemia On Treatment #10 Stroke Cerebrovascular [...] DM 2 For postoperative care: Consult social work manager on the inpatient setting, patient's is having [...] 3596) pamphlet; Your guide to Cardiac Surgery OD3266; Surgical Site Infection: Reducing Your Risk (MC 6471); Central Venous Catheter Infection: Reducing Your Risk (OL3667). Patient instructed to report to [facility] for Bactroban prescription. Application instructions [...] of the patient today. Time includes both enu-gyiq-qe-face zqwqhmn-ah-hgkw patient care. MADHAV Chong, P.A.-C. BILITATION TEAM LEAD documented in this encounter Consult Notes * Karin Mclaughlin, RDN, LD - 09/26/2023 12:05 PM CSTAssociated Order(s): [...] T2DM, RLS Patient was not available at feature writer's attempts to visit today. Per EMR, patient [...] Question: Diet texture: Answer: Regular 09/23/23 0737 09/19/23 2339 Advance diet as tolerated Until discontinued Comments: Advance patient to the target diet when the following criteria are met: stooling Question Answer Comment Starting Diet Clear Liquid Target Diet: Regular 09/19/23 2339 Skin integrity: Wound 09/19/23 Incision Sternum (Active) [...] on 09/26/23. Estimated Needs: Total Calorie Needs: 7125-1420 calories/day Method to Estimate Energy Needs: [place] ( basal to basal + 10% [...] about patient's nutritional care please contact pager [phone] on weekdays 07:30-16:00 or [phone] on weekends/holidays. * AbdulazizGinette De La Vega RCEP - 09/24/2023 10:41 AM CSTAssociated Order(s): IP [...] the cardiac rehab program. Patient referred to: [facility] [address] [place] [address] Recommend that the patient check with insurance company to verify coverage of the cost of cardiac rehabilitation program visits. BILITATION TEAM LEAD * Eloisa Oro M.S.Danny., M.H.A., R.N., [facility] - 09/24/2023 8:48 AM REHABILITATION TEAM LEAD Associated Order(s): IP CONSULT TO CARE MANAGEMENT; IP CONSULT TO CARE MANAGEMENT Discharge Planning Assessment SUBJECTIVE Assessment Information Referral Source: Nurse Referral Name: Liliana Galindo R.N. 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 Glomerular Filtration Rate (GFR) 30 To 44 ([facility]) #3 Hyperlipidemia On Treatment #4 Benign Prostatic Hyperplasia Without Obstruction #5 Atrial Fibrillation Paroxysmal ([facility]) #6 Diabetes Mellitus Type 2 ([facility]) #7 Anemia In Chronic Kidney Disease #8 Hemiplegia Dominant Side Right ([facility]) #9 Hypertension Essential Primary #10 Stroke Cerebrovascular Accident Personal History #11 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 #12 Prosthesis Aortic Valve #13 Coronary Artery Disease Without Angina Pectoris #14 Anemia Posthemorrhagic Acute (Blood Loss Anemia) #15 Failure Renal Acute (Acute Kidney Injury) ([facility]) #16 Hyperkalemia #17 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 #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 no benefits: No Advance Directives Legal Decision Maker: Self Advance Directives Status: Not completed OBJECTIVE Baseline Functional Status Baseline Activities of Daily Living Mobility: Independent Dressing: Independent Feeding: Independent Bathing: Independent Grooming: Independent Toileting: Independent Behavior: Appropriate, Pleasant, Calm, Cooperative, Oriented Communication: Can write, Talks, Understands speaking, Understands Samoan, Reads Shopping: Independent Transportation: Independent to drive [...] Fanny or Lissy Phone Number for Ride/Caregiver: [phone] Anticipated Discharge Destination: Senior Care Facility ASSESSMENT / PLAN Assessment: The frog farmer met with Jong Harris to discuss his current hospitalization and home going needs. The patient was unaccompanied. The patient was a reliable historian. The role of frog farmer was reviewed. The patient reviewed his prior level of care and support system. The patient receives support from his , daughter, and son. Mr. Steven lives in a 1st floor apartment with his Lissy. The patients will need knee surgery in 4 days and they have requested the patient go to a [facility] facility for PT/OT rehab if possible, referrals [...] responsibilities have previously been completed by patient. frog farmer discussed the patient's potential needs at dismissal [...] following new service(s) to be set up: [facility] facility. After reviewing the patient's chart and meeting with the patient, the frog farmer deemed the LACE+/readmission questions were not necessary. The patient reports understanding that he will dismiss from the hospital when medically stable. Pending hospital course and medical readiness, no barriers to dismissal have been identified at this time. Plan: The patient agrees with the following plan. Patient's anticipated discharge disposition is: Senior Care Facility Planning needs to be initiated. Transportation upon dismissal will be provided by family--Son or daughter . frog farmer recommended reaching out to family, friends, and neighbors for assistance. frog farmer provided information regarding the dismissal process. frog farmer placed or requested the following hospital-based consult orders and/or referrals: None. frog farmer will continue to assess for homegoing needs with the interdisciplinary team. frog farmer encouraged the patient to reach out with any questions/concerns. Care Management will continue to follow. Signed by: Damon Kraus, M.H.A., R.N., [facility] 09/24/2023 BILITATION TEAM LEAD * Neelam Villalobos O.T., O.T.D. - 09/23/2023 10:14 AM CST Occupational Therapy Acute Hospital Inpatient Evaluation/Treatment SUBJECTIVE Patient's Name: Jong Harris Referring/Attending Provider: Sarah Miller M.D. 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 Prior Mobility/Functional Transfers Level of [place]: Independent Home Living Type of Home: Apartment Home Access: Stairs to enter with rails Entrance Stairs: Rails: Left Entrance Stairs: Number of Steps: 6 Bathroom Shower/Tub: Tub/shower unit Tub/shower unit location: Main floor Bathroom Toilet: Standard Home Living Comments: would have to side shuffle with a walker Home Equipment Home Adaptive Equipment: Runway Model Other DME Equipment : (flat bed) Bathroom Equipment: Grab bars in shower, Tub transfer bench Family/Caregiver Present: Yes (son) Patient/Caregiver Goals: None stated Patient Comments: Patient presented on toilet, having just completed mobility in hallway and to bathroom with machine bobbin winder. Patient with no complaints of pain, and [...] Handouts provided today: Recovery From Heart Surgery [id number] Team Communication: Patient's nurse was contacted and patient's status was discussed, Discussed patient's care with PT Co-treatment with: Physical Therapy (Co-treatment session with PT, The patient benefited from having two skilled therapists present to progress mobility safely. OT addressed functional mobility as itrelates to completing activities of daily living.) Outcome Measures -[facility] Inpatient Short Form: Putting on and taking [...] Standardized Score: 40.22 Interpretation: Clinicians answer the -[facility] Inpatient Short Form based on observed patient [...] Assistance with housekeeping, Assistance withtransportation, Assistance with patient financial advocate, Assistance with showering/bathing Recommended Adaptive Equipment - [...] (min): 28 min Neelam Villalobos O.T., O.TRomeo BILITATION TEAM LEAD * Ximena Green P.T., D.P.T. - 09/23/2023 10:14 AM CST Physical Therapy Inpatient Evaluation/Treatment SUBJECTIVE Patient's Name: Jong Emilia Harris Referring/Attending Provider: Sarah Miller M.D. 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 Light assist with the walker forstability. Discussed patient's fall with nursing yesterday. Patient [...] needs met and questions answered. Outcome Measures [facility] Inpatient Short Form: AM-PAC Basic Mobility (V.2) [...] 3-5 steps with a railing?: A Little -[facility] Basic Mobility (V.2) Raw Score: 18 AM-[facility] Basic Mobility (V.2) Standardized Score: 41.05 Interpretation: Clinicians answer the -[facility] Inpatient Short Form based on observed patient [...] Time (min): 26 min Ximena Green P.T., D.P.TJarrett BILITATION TEAM LEAD * Vipul Garcia P.A.-C. - 09/21/2023 12:34 [...] 0850 09/21/23 0631 09/21/23 0511 09/21/23 0021 09/20/23 2033 09/20/23 1631 09/20/23 1627 GLUCOSEPOC 190 H [...] primary service with questions regarding blood sugars. BILITATION TEAM LEAD documented in this encounter Nursing Notes * Valroie Osman R.N. - 09/26/2023 2:15 PM CST Patient discharging home to self care. correction placement canceled per patients request. Education complete. All medications and future appointments reviewed with patient. All questions answered.Vital signs stable. IVs removed. Patient transported by home. Electronically signed by: Valorie Osman R.N. 09/26/23 3:50 PM REHABILITATION TEAM LEAD BILITATION TEAM LEAD * Ar Mills R.N. - 09/26/2023 5:17 [...] by: Ar Mills R.N. 09/26/23 5:19 AM REHABILITATION TEAM LEAD BILITATION TEAM LEAD * Kelsey Downing R.N. - 09/25/2023 5:46 PM CST Shift Goals: Clinical Goals for the Shift: Dismissal planning Identify possible barriers to meeting goals/advancing plan of care: None End of Shift Summary: Dismissal education progressing well. Plan is to dismiss to SNF on Sunday. Denies questions at this time. BILITATION TEAM LEAD * Ar Mills R.N. - 09/25/2023 5:37 [...] by: Ar Mills R.N. 09/25/23 5:39 AM REHABILITATION TEAM LEAD BILITATION TEAM LEAD * Amita Mercado R.N. - 09/24/2023 6:42 [...] Goal: Maintain a safe environment Outcome: Progressing BILITATION TEAM LEAD * Radha Lara R.N. - 09/23/2023 5:20 PM CST Shift Goals: Clinical Goals for the Shift: Education and ambulation Identify possible barriers to meeting goals/advancing plan of care: Tiredness End of Shift Summary: Patient ambulated to the bathroom multiple times throughout the day. He was able to ambulate in the day three times with encouragement. The patient required a rest fpc through the walk. Education was started while the was present. .Electronically signed by: Radha Lara R.N. 09/23/23 5:23 PM REHABILITATION TEAM LEAD Problem: KNOWLEDGE DEFICIT Goal: Patient/family/caregiver demonstrates understanding of disease process, treatment plan, medications, and discharge instructions Outcome: Progressing Problem: SKIN/TISSUE INTEGRITY Goal: Skin/Tissue integrity maintained or improved Outcome: Progressing Problem: DISCHARGE PLANNING Goal: Patient discharge needs identified Outcome: Progressing BILITATION TEAM LEAD * Julienne Harding R.N. - 09/23/2023 4:13 [...] for hemodynamic support. Pain control remains adequate. BILITATION TEAM LEAD * Julienne Harding R.N. - 09/22/2023 11:50 [...] bed. Neuro status intact at this time. BILITATION TEAM LEAD * Elieser Fong - 09/22/2023 6:26 PM [...] Recent CPT: Elieser Fong 09/22/23 6:27 PM REHABILITATION TEAM LEAD Under the direction of Felipe ParadaRBryanna, L.R.T. BILITATION TEAM LEAD * Vipin Catalan R.RBryanna, L.R.T. - 09/21/2023 2:24 AM CST Patient is a 73 y.o. male admitted on 09/19/2023 Alert Information: Plan of Care: Assess respiratory needs Principal Problem Stenosis Aortic Valve Acquired Oxygen Therapy $Delivery Method: Nasal cannula Arterial Line 09/19/23 Left Radial (Active) Placement Date/Time: 09/19/23 (c) 5055 Procedural Pause Completed: Yes Catheter Time Out [...] L PCO2 ART 43 PH ART 7.37 BILITATION TEAM LEAD * Kev Duke R.R.T., L.R.T. - 09/20/2023 6:23 AM CST Patient [...] Left Radial (Active) Placement Date/Time: 09/19/23 (c) 2937 Procedural Pause Completed: Yes Catheter Time Out [...] PH ART 7.37 Skin integrity checked: intact. BILITATION TEAM LEAD * Yuriy Wilson R.RBryanna, L.R.T. - 09/19/2023 6:05 PM CST Alert Information: Plan of Care: Continue to monitor and assess pts cardiopulmonary status; encourage coughing and deep breathing; encourage walking and use of incentive spirometry; wean O2 as tolerated. Wean vent settings as tolerated, w/ goal of extubation when ready. Principal Problem Stenosis Aortic Valve Acquired ETT Standard ETT (Active) Placement Date/Time: 09/19/23 (c) 2028 Mask Ventilation: Oral/Nasal airway needed Technique: Directlaryngoscopy, intubation ETT Type: Standard ETT Tube Size: 8 mm Cuffed: Yes Blade Size: Ospina 2 Location: Oral Airway secured at (Initial grover... Arterial Line 09/19/23 Left Radial (Active) Placement Date/Time: 09/19/23 (c) 1961 Procedural Pause Completed: Yes Catheter Time Out [...] PH ART 7.37 Skin integrity checked: good BILITATION TEAM LEAD documented in this encounter OR Notes * [...] overweight. Post-op Diagnosis Same as preop A delinquent tax collection assistant actively participated and was necessary for [...] non pledgetted Prolene suture and a 20 [place] DLP arterial cannula. The right atrium was [...] at a pressure 100 mm Hg a [id number] mL/minute was obtained. We re-dosed the cardioplegia [...] in stable conditions. Sarah Miller M.D., M.P.H. BILITATION TEAM LEAD * Brief Op Note - Jenny Stanford M.B., B.Ch., B.A.O. - 09/19/2023 8:59 AM CST BRIEF OP NOTE Procedure(s): REPLACEMENT AORTIC VALVE, POSSIBLE AORTIC ROOT ENLARGEMENT. (On-X Conform 23mm Valve) CORONARY ARTERY BYPASS GRAFT X1, VEIN. LIGATION LEFT ATRIAL APPENDAGE. ISOLATION PULMONARY VEIN. ECHOCARDIOGRAM TRANSESOPHAGEAL Surgeon(s) and Role: * Sarah Miller M.D., M.P.H. - Primary * Jenny Stanford M.B., B.Ch., B.A.O. - Load Blocker Anesthesia Type General Pre-operative Diagnosis Stenosis Aortic [...] Implants Implant Name LRB Site No. Used Controls Operator Molded Goods Mfr No. Serial No. Status Type CLP HRZN TI 6 CLP KIKA - [id number] N/A Chest 1 Teleflex TweetDeck [id number] Implanted Hardware e.g. pins/screws/rods CLP HRZN TI 24 CLP SM RED - [id number] N/A Chest 1 Teleflex [employer]weet[employer]ck [id number] Implanted Hardware e.g. pins/screws/rods CLP HRZN TI 24 CLP SM RED - [id number] N/A Chest 1 Teleflex Tweet[employer]ck [id number] Implanted Hardware e.g. pins/screws/rods FELT SURG TFLN 1X6 - [id number] N/A Chest 1 Get.com [id number] Implanted Hardware e.g. pins/screws/rods CLP HRZN TI 24 CLP KIKA - [id number] N/A Chest 1 Teleflex TweetDeck [id number] Implanted Hardware e.g. pins/screws/rods VLV AORT CNF [facility] 23 - [id number] - [id number] N/A Aortic Valve 1 [employer]ion (Prev. CryoLife) [id number] Implanted Cardiac Valve Prosthesis Patient Condition:ICU: Stable Misty Howe, Lucille, B.A.O. BILITATION TEAM LEAD documented in this encounter Miscellaneous Notes * Hospital Course - Ginette Greene P.A.-C., M.S. - 09/20/2023 1:59 AM REHABILITATION TEAM LEAD Jong Harris is a 73 y.o. male [...] M.P.H. Primary Jenny Stanford M.B., B.Ch., B.A.O. Load Blocker Dismissal Vitals: Admission Weight: 85.8 kg Blood [...] to the increased Doppler velocities (8.3 g/dL). BILITATION TEAM LEAD documented in this encounter Plan of Treatment Upcoming Encounters Date Type Department Care Team (Latest Contact Info) Description 12/21/2023 10:15 AM REHABILITATION TEAM LEAD Clinical Communication Virtual Review in [place], [place] [address] [place] [address] 12/24/2023 2:00 PM REHABILITATION TEAM LEAD Comprehensive Visit Department of Cardiovascular Medicine in [place], [place] [address] [place] [phone] Gudelia Soto M.D. [address] [place] [phone] 01/01/2024 3:45 PM REHABILITATION TEAM LEAD Comprehensive Visit Division of Hematology in [place], [place] [address] [place] [phone] Billy Segal APRN, C.N.P., D.N.P. [address] [place] [phone] Pending Results Name Type Priority Associated Diagnoses Date /Time Prepare Red Blood Cells, 2 Units Blood Bank STAT 09/18/2023 9:04 AM REHABILITATION TEAM LEAD Prepare Platelets : 1 Units Blood Bank STAT 09/20/2023 2:30 AM REHABILITATION TEAM LEAD Prepare Red Blood Cells, 2 Units Blood Bank STAT 09/18/2023 9:04 AM REHABILITATION TEAM LEAD Prepare Fresh Frozen Plasma : 1 Units Blood Bank STAT 09/20/2023 2:30 AM REHABILITATION TEAM LEAD Prepare Platelets : 1 Units Blood Bank STAT 09/20/2023 2:30 AM REHABILITATION TEAM LEAD Prepare Pooled Cryoprecipitate : 2 Pools Blood Bank STAT 2022 4:30 AM REHABILITATION TEAM LEAD Prepare Red Blood Cells, 2 Units Blood Bank STAT 09/18/2023 9:04 AM REHABILITATION TEAM LEAD Prepare Platelets : 1 Units Blood Bank STAT 09/20/2023 6:30 AM REHABILITATION TEAM LEAD Scheduled Referrals Name Type Priority Associated Diagnoses Orde r Schedule External referral cardiac rehab program (non-[facility]) Outpatient Referral Routine Prosthesis Aortic Valve Bypass Coronary Artery Graft Status Post Ordered: 09/24/2023 documented as of this encounter Procedures Procedure Name Priority Date/Time Associated Diagnosis Comments GLUCOSE POCT, B Routine 09/26/2023 11:37 AM REHABILITATION TEAM LEAD GLUCOSE POCT, B Routine 09/26/2023 7:55 AM REHABILITATION TEAM LEAD PROTHROMBIN TIME (PT), P Routine 09/26/2023 6:58 AM REHABILITATION TEAM LEAD CBC WITHOUT DIFFERENTIAL, B Routine 09/26/2023 6:58 AM REHABILITATION TEAM LEAD BASIC METABOLIC PANEL, S/P Routine 09/26/2023 6:58 AM REHABILITATION TEAM LEAD GLUCOSE POCT, B Routine 09/25/2023 8:25 PM REHABILITATION TEAM LEAD GLUCOSE POCT, B Routine 09/25/2023 5:36 PM REHABILITATION TEAM LEAD GLUCOSE POCT, B Routine 09/25/2023 1:13 PM REHABILITATION TEAM LEAD PROTHROMBIN TIME (PT), P Routine 09/25/2023 9:26 AM REHABILITATION TEAM LEAD CBC WITHOUT DIFFERENTIAL, B Routine 09/25/2023 9:26 AM REHABILITATION TEAM LEAD BASIC METABOLIC PANEL, S/P Routine 09/25/2023 9:26 AM REHABILITATION TEAM LEAD GLUCOSE POCT, B Routine 09/25/2023 8:10 AM REHABILITATION TEAM LEAD DX CHEST AP OR PA AND LATERAL 2 VIEWS RAD - Routine (most inpatients and all outpatients) 09/25/2023 7:26 AM REHABILITATION TEAM LEAD ECG Routine 09/25/2023 4:55 AM REHABILITATION TEAM LEAD GLUCOSE POCT, B Routine 09/24/2023 8:33 PM REHABILITATION TEAM LEAD GLUCOSE POCT, B Routine 09/24/2023 4:44 PM REHABILITATION TEAM LEAD NOCTURNAL OXYGEN STUDY - RT Routine 09/24/2023 3:46 PM REHABILITATION TEAM LEAD (TTE) 2D ECHO DOPPLER COLOR Routine 09/24/2023 3:26 PM REHABILITATION TEAM LEAD GLUCOSE POCT, B Routine 09/24/2023 12:43 PM REHABILITATION TEAM LEAD RT TO ARRANGE FOR HOME DME Routine 09/24/2023 11:14 AM REHABILITATION TEAM LEAD GLUCOSE POCT, B Routine 09/24/2023 7:19 AM REHABILITATION TEAM LEAD PROTHROMBIN TIME (PT), P Routine 09/24/2023 6:49 AM REHABILITATION TEAM LEAD CBC WITHOUT DIFFERENTIAL, B Routine 09/24/2023 6:49 AM REHABILITATION TEAM LEAD BASIC METABOLIC PANEL, S/P Routine 09/24/2023 6:49 AM REHABILITATION TEAM LEAD GLUCOSE POCT, B Routine 09/23/2023 9:38 PM REHABILITATION TEAM LEAD GLUCOSE POCT, B Routine 09/23/2023 5:02 PM REHABILITATION TEAM LEAD PROTHROMBIN TIME (PT), P STAT 09/23/2023 3:44 PM REHABILITATION TEAM LEAD HEMOGLOBIN, B STAT 09/23/2023 3:44 PM REHABILITATION TEAM LEAD BASIC METABOLIC PANEL, S/P STAT 09/23/2023 3:44 PM REHABILITATION TEAM LEAD GLUCOSE POCT, B Routine 09/23/2023 12:19 PM REHABILITATION TEAM LEAD DX CHEST AP OR PA AND LATERAL 2 VIEWS RAD - Routine (most inpatients and all outpatients) 09/23/2023 8:44 AM REHABILITATION TEAM LEAD PROTHROMBIN TIME (PT), P Routine 09/23/2023 7:34 AM REHABILITATION TEAM LEAD CBC WITHOUT DIFFERENTIAL, B Routine 09/23/2023 7:34 AM REHABILITATION TEAM LEAD BASIC METABOLIC PANEL, S/P Routine 09/23/2023 7:34 AM REHABILITATION TEAM LEAD HEPATIC FUNCTION PANEL, S Routine 09/23/2023 7:31 AM REHABILITATION TEAM LEAD GLUCOSE POCT, B Routine 09/23/2023 7:24 AM REHABILITATION TEAM LEAD CBC WITHOUT DIFFERENTIAL, B STAT 09/22/2023 11:14 PM REHABILITATION TEAM LEAD BASIC METABOLIC PANEL, S/P STAT 09/22/2023 11:14 PM REHABILITATION TEAM LEAD GLUCOSE POCT, B Routine 09/22/2023 9:29 PM REHABILITATION TEAM LEAD RESPIRATORY ASSESS AND TREAT Routine 09/22/2023 2:00 PM REHABILITATION TEAM LEAD TRANSFUSE RED BLOOD CELLS Routine 09/22/2023 2:00 PM REHABILITATION TEAM LEAD GLUCOSE POCT, B Routine 09/22/2023 11:27 AM REHABILITATION TEAM LEAD GLUCOSE POCT, B Routine 09/22/2023 7:34 AM REHABILITATION TEAM LEAD PROTHROMBIN TIME (PT), P Routine 09/22/2023 7:04 AM REHABILITATION TEAM LEAD CBC WITHOUT DIFFERENTIAL, B Routine 09/22/2023 7:04 AM REHABILITATION TEAM LEAD BASIC METABOLIC PANEL, S/P Routine 09/22/2023 7:04 AM REHABILITATION TEAM LEAD TYPE AND SCREEN Routine 09/22/2023 7:01 AM REHABILITATION TEAM LEAD GLUCOSE POCT, B Routine 09/21/2023 10:52 PM REHABILITATION TEAM LEAD GLUCOSE POCT, B Routine 09/21/2023 7:07 PM REHABILITATION TEAM LEAD RESPIRATORY ASSESS AND TREAT Routine 09/21/2023 2:00 PM REHABILITATION TEAM LEAD GLUCOSE POCT, B Routine 09/21/2023 11:27 AM REHABILITATION TEAM LEAD GLUCOSE POCT, B Routine 09/21/2023 8:50 AM REHABILITATION TEAM LEAD PROTHROMBIN TIME (PT), P STAT 09/21/2023 7:47 AM REHABILITATION TEAM LEAD PATIENT STATUS Timed 09/21/2023 6:35 AM REHABILITATION TEAM LEAD ABG W/COOX Timed 09/21/2023 6:35 AM REHABILITATION TEAM LEAD GLUCOSE POCT, B Routine 09/21/2023 6:31 AM REHABILITATION TEAM LEAD CBC WITHOUT DIFFERENTIAL, B Timed 09/21/2023 5:11 AM REHABILITATION TEAM LEAD PHOSPHORUS (INORGANIC), S Timed 09/21/2023 5:11 AM REHABILITATION TEAM LEAD MAGNESIUM, S Timed 09/21/2023 5:11 AM REHABILITATION TEAM LEAD BASIC METABOLIC PANEL, S/P Timed 09/21/2023 5:11 AM REHABILITATION TEAM LEAD BASIC METABOLIC PANEL, S/P Timed 09/21/2023 12:21 AM REHABILITATION TEAM LEAD GLUCOSE POCT, B Routine 09/20/2023 8:33 PM REHABILITATION TEAM LEAD POTASSIUM, S/P Timed 09/20/2023 8:33 PM REHABILITATION TEAM LEAD GLUCOSE POCT, B Routine 09/20/2023 4:31 PM REHABILITATION TEAM LEAD BASIC METABOLIC PANEL, S/P STAT 09/20/2023 4:27 PM REHABILITATION TEAM LEAD RESPIRATORY ASSESS AND TREAT Routine 09/20/2023 2:00 PM REHABILITATION TEAM LEAD GLUCOSE POCT, B Routine 09/20/2023 11:51 AM REHABILITATION TEAM LEAD BASIC METABOLIC PANEL, S/P STAT 09/20/2023 11:51 AM REHABILITATION TEAM LEAD GLUCOSE POCT, B Routine 09/20/2023 6:30 AM REHABILITATION TEAM LEAD PREPARE PLATELETS STAT 09/20/2023 6:3 0 AM REHABILITATION TEAM LEAD PREPARE CRYOPRECIPITATE STAT 09/20/2023 4:30 AM REHABILITATION TEAM LEAD LACTATE, B Timed 09/20/2023 4:11 AM REHABILITATION TEAM LEAD PATIENT STATUS Timed 09/20/2023 4:11 AM REHABILITATION TEAM LEAD ABG W/O COOX Timed 09/20/2023 4:11 AM REHABILITATION TEAM LEAD ACTIVATED PARTIAL THROMBOPLASTIN TIME (APTT), P Timed 09/20/2023 4:09 AM REHABILITATION TEAM LEAD PROTHROMBIN TIME (PT), P Timed 09/20/2023 4:09 AM REHABILITATION TEAM LEAD CBC WITHOUT DIFFERENTIAL, B Timed 09/20/2023 4:09 AM REHABILITATION TEAM LEAD MAGNESIUM, S Timed 09/20/2023 4:09 AM REHABILITATION TEAM LEAD BASIC METABOLIC PANEL, S/P Timed 09/20/2023 4:09 AM REHABILITATION TEAM LEAD DX CHEST PORTABLE WITH AM ROUNDS 1 VIEW RAD - Routine (most inpatients and all outpatients) 09/20/2023 3:33 AM REHABILITATION TEAM LEAD TIMP2/IGFBP7 MANJEET RISK SCORE, U Routine 09/20/2023 3:24 AM REHABILITATION TEAM LEAD PREPARE PLATELETS STAT 09/20/2023 2:3 0 AM REHABILITATION TEAM LEAD PREPARE PLATELETS STAT 09/20/2023 2:3 0 AM REHABILITATION TEAM LEAD PREPARE FRESH FROZEN PLASMA STAT 09/20/2023 2:30 AM REHABILITATION TEAM LEAD GLUCOSE POCT, B Routine 09/20/2023 1:17 AM REHABILITATION TEAM LEAD GLUCOSE POCT, B Routine 09/19/2023 11:58 PM REHABILITATION TEAM LEAD GLUCOSE POCT, B Routine 09/19/2023 11:20 PM REHABILITATION TEAM LEAD LACTATE, B Timed 09/19/2023 10:58 PM REHABILITATION TEAM LEAD RESPIRATORY ASSESS AND TREAT Routine 09/19/2023 10:30 PM REHABILITATION TEAM LEAD GLUCOSE POCT, B Routine 09/19/2023 10:27 PM REHABILITATION TEAM LEAD GLUCOSE POCT, B Routine 09/19/2023 9:24 PM REHABILITATION TEAM LEAD ECG Routine 09/19/2023 8:14 PM REHABILITATION TEAM LEAD GLUCOSE POCT, B Routine 09/19/2023 7:58 PM REHABILITATION TEAM LEAD LACTATE, B Timed 09/19/2023 7:43 PM REHABILITATION TEAM LEAD PATIENT STATUS Timed 09/19/2023 7:43 PM REHABILITATION TEAM LEAD ABG W/COOX Timed 09/19/2023 7:43 PM REHABILITATION TEAM LEAD LACTATE, B/P Timed 09/19/2023 7:43 PM REHABILITATION TEAM LEAD GLUCOSE POCT, B Routine 09/19/2023 6:57 PM REHABILITATION TEAM LEAD GLUCOSE POCT, B Routine 09/19/2023 6:23 PM REHABILITATION TEAM LEAD DX CHEST PORTABLE 1 VIEW 09/19/2023 5:45 PM REHABILITATION TEAM LEAD LACTATE, B STAT 09/19/2023 5:19 PM REHABILITATION TEAM LEAD PATIENT STATUS STAT 09/19/2023 5:19 PM REHABILITATION TEAM LEAD ABG W/COOX STAT 09/19/2023 5:19 PM REHABILITATION TEAM LEAD CYSTATIN C WITH EGFR Timed 09/19/2023 5:19 PM REHABILITATION TEAM LEAD Acquired Aortic Valve Disorder ACTIVATED PARTIAL THROMBOPLASTIN TIME (APTT), P STAT 09/19/2023 5:19 PM REHABILITATION TEAM LEAD PROTHROMBIN TIME (PT), P STAT 09/19/2023 5:19 PM REHABILITATION TEAM LEAD FIBRINOGEN, P STAT 09/19/2023 5:19 PM REHABILITATION TEAM LEAD CBC WITHOUT DIFFERENTIAL, B STAT 09/19/2023 5:19 PM REHABILITATION TEAM LEAD BASIC METABOLIC PANEL, S/P STAT 09/19/2023 5:19 PM REHABILITATION TEAM LEAD AIRWAY CARE Routine 09/19/2023 5:16 PM REHABILITATION TEAM LEAD MECHANICAL VENTILATOR Routine 09/19/2023 5:16 PM REHABILITATION TEAM LEAD RESPIRATORY ASSESS AND TREAT Routine 09/19/2023 5:07 PM REHABILITATION TEAM LEAD TRANSFUSE PLATELETS Routine 09/19/2023 4 :58 PM REHABILITATION TEAM LEAD LACTATE, B STAT 09/19/2023 4:20 PM REHABILITATION TEAM LEAD SODIUM, B STAT 09/19/2023 4:20 PM REHABILITATION TEAM LEAD ABG W/COOX STAT 09/19/2023 4:20 PM REHABILITATION TEAM LEAD POTASSIUM, B STAT 09/19/2023 4:20 PM REHABILITATION TEAM LEAD GLUCOSE, WHOLE BLOOD STAT 09/19/2023 4:20 PM REHABILITATION TEAM LEAD ACTIVATED PARTIAL THROMBOPLASTIN TIME (APTT), P STAT 09/19/2023 4:20 PM REHABILITATION TEAM LEAD PROTHROMBIN TIME (PT), P STAT 09/19/2023 4:20 PM REHABILITATION TEAM LEAD FIBRINOGEN, P STAT 09/19/2023 4:20 PM REHABILITATION TEAM LEAD PLATELETS, B STAT 09/19/2023 4:20 PM REHABILITATION TEAM LEAD CALCIUM, IONIZED, S/B STAT 09/19/2023 4:20 PM REHABILITATION TEAM LEAD TRANSFUSE CRYOPRECIPITATE Routine 09/19/2023 3:53 PM REHABILITATION TEAM LEAD TRANSFUSE CRYOPRECIPITATE Routine 09/19/2023 3:51 PM REHABILITATION TEAM LEAD TRANSFUSE RED BLOOD CELLS Routine 09/19/2023 3:50 PM REHABILITATION TEAM LEAD LACTATE, B STAT 09/19/2023 3:37 PM REHABILITATION TEAM LEAD SODIUM, B STAT 09/19/2023 3:37 PM REHABILITATION TEAM LEAD ABG W/COOX STAT 09/19/2023 3:37 PM REHABILITATION TEAM LEAD THROMBOELASTOGRAPH, KAOLIN + HEPARINASE, B STAT 09/19/2023 3:37 PM REHABILITATION TEAM LEAD POTASSIUM, B STAT 09/19/2023 3:37 PM REHABILITATION TEAM LEAD GLUCOSE, WHOLE BLOOD STAT 09/19/2023 3:37 PM REHABILITATION TEAM LEAD THROMBOELASTOGRAPH, KAOLIN, B STAT 09/19/2023 3:37 PM REHABILITATION TEAM LEAD ACTIVATED PARTIAL THROMBOPLASTIN TIME (APTT), P STAT 09/19/2023 3:37 PM REHABILITATION TEAM LEAD PROTHROMBIN TIME (PT), P STAT 09/19/2023 3:37 PM REHABILITATION TEAM LEAD FIBRINOGEN, P STAT 09/19/2023 3:37 PM REHABILITATION TEAM LEAD PLATELETS, B STAT 09/19/2023 3:37 PM REHABILITATION TEAM LEAD CALCIUM, IONIZED, S/B STAT 09/19/2023 3:37 PM REHABILITATION TEAM LEAD TRANSFUSE RED BLOOD CELLS Routine 09/19/2023 3:23 PM REHABILITATION TEAM LEAD SODIUM, B STAT 09/19/2023 2:46 PM REHABILITATION TEAM LEAD ABG W/COOX STAT 09/19/2023 2:46 PM REHABILITATION TEAM LEAD POTASSIUM, B STAT 09/19/2023 2:46 PM REHABILITATION TEAM LEAD GLUCOSE, WHOLE BLOOD STAT 09/19/2023 2:46 PM REHABILITATION TEAM LEAD ACTIVATED PARTIAL THROMBOPLASTIN TIME (APTT), P STAT 09/19/2023 2:46 PM REHABILITATION TEAM LEAD PROTHROMBIN TIME (PT), P STAT 09/19/2023 2:46 PM REHABILITATION TEAM LEAD FIBRINOGEN, P STAT 09/19/2023 2:46 PM REHABILITATION TEAM LEAD PLATELETS, B STAT 09/19/2023 2:46 PM REHABILITATION TEAM LEAD CALCIUM, IONIZED, S/B STAT 09/19/2023 2:46 PM REHABILITATION TEAM LEAD DX CHEST RETAINED SURGICAL ITEM 1 VIEW RAD - Emergent (Fastest; for the most critically ill patients) 09/19/2023 2:30 PM REHABILITATION TEAM LEAD TRANSFUSE PLATELETS Routine 09/19/2023 2 :15 PM REHABILITATION TEAM LEAD TRANSFUSE RED BLOOD CELLS Routine 09/19/2023 2:00 PM REHABILITATION TEAM LEAD SODIUM, B STAT 09/19/2023 1:40 PM REHABILITATION TEAM LEAD ABG W/COOX STAT 09/19/2023 1:40 PM REHABILITATION TEAM LEAD POTASSIUM, B STAT 09/19/2023 1:40 PM REHABILITATION TEAM LEAD GLUCOSE, WHOLE BLOOD STAT 09/19/2023 1:40 PM REHABILITATION TEAM LEAD ACTIVATED PARTIAL THROMBOPLASTIN TIME (APTT), P STAT 09/19/2023 1:40 PM REHABILITATION TEAM LEAD PROTHROMBIN TIME (PT), P STAT 09/19/2023 1:40 PM REHABILITATION TEAM LEAD FIBRINOGEN, P STAT 09/19/2023 1:40 PM REHABILITATION TEAM LEAD PLATELETS, B STAT 09/19/2023 1:40 PM REHABILITATION TEAM LEAD CALCIUM, IONIZED, S/B STAT 09/19/2023 1:40 PM REHABILITATION TEAM LEAD AUTOLOGOUS RED BLOOD CELLS-CELL SALVAGE Routine 09/19/2023 1:28 PM REHABILITATION TEAM LEAD TRANSFUSE FRESH FROZEN PLASMA Routine 09/19/2023 1:24 PM REHABILITATION TEAM LEAD TRANSFUSE PLATELETS Routine 09/19/2023 1 :09 PM REHABILITATION TEAM LEAD LACTATE, B STAT 09/19/2023 12:45 PM REHABILITATION TEAM LEAD SODIUM, B STAT 09/19/2023 12:45 PM REHABILITATION TEAM LEAD ABG W/COOX STAT 09/19/2023 12:45 PM REHABILITATION TEAM LEAD POTASSIUM, B STAT 09/19/2023 12:45 PM REHABILITATION TEAM LEAD GLUCOSE, WHOLE BLOOD STAT 09/19/2023 12:45 PM REHABILITATION TEAM LEAD CALCIUM, IONIZED, S/B STAT 09/19/2023 12:45 PM REHABILITATION TEAM LEAD ACTIVATED PARTIAL THROMBOPLASTIN TIME (APTT), P STAT 09/19/2023 12:44 PM REHABILITATION TEAM LEAD PROTHROMBIN TIME (PT), P STAT 09/19/2023 12:44 PM REHABILITATION TEAM LEAD FIBRINOGEN, P STAT 09/19/2023 12:44 PM REHABILITATION TEAM LEAD PLATELETS, B STAT 09/19/2023 12:44 PM REHABILITATION TEAM LEAD ACT, POCT, B Routine 09/19/2023 12:42 PM REHABILITATION TEAM LEAD HEMOGLOBIN (HGB), POCT, B Routine 09/19/2023 12:17 PM REHABILITATION TEAM LEAD ACT, POCT, B Routine 09/19/2023 12:01 PM REHABILITATION TEAM LEAD GLUCOSE POCT, B Routine 09/19/2023 12:00 PM REHABILITATION TEAM LEAD SURGICAL PATHOLOGY, [facility] Routine 09/19/2023 11:34 AM REHABILITATION TEAM LEAD Stenosis Aortic Valve Acquired AUTOLOGOUS RED BLOOD CELLS-CELL SALVAGE Routine 09/19/2023 11:33 AM REHABILITATION TEAM LEAD ACT, POCT, B Routine 09/19/2023 11:28 AM REHABILITATION TEAM LEAD ACT, POCT, B Routine 09/19/2023 10:55 AM REHABILITATION TEAM LEAD ACT, POCT, B Routine 09/19/2023 10:24 AM REHABILITATION TEAM LEAD GLUCOSE POCT, B Routine 09/19/2023 10:23 AM REHABILITATION TEAM LEAD TRANSFUSE RED BLOOD CELLS Routine 09/19/2023 10:13 AM REHABILITATION TEAM LEAD (EDMUNDO) - INTRAOPERATIVE WITH COLOR AND LIMITED DOPPLER (PROBE NOT PLACED) Routine 09/19/2023 9:56 AM REHABILITATION TEAM LEAD SODIUM, B STAT 09/19/2023 9:51 AM REHABILITATION TEAM LEAD ABG W/COOX STAT 09/19/2023 9:51 AM REHABILITATION TEAM LEAD ACT, POCT, B Routine 09/19/2023 9:51 AM REHABILITATION TEAM LEAD POTASSIUM, B STAT 09/19/2023 9:51 AM REHABILITATION TEAM LEAD GLUCOSE, WHOLE BLOOD STAT 09/19/2023 9:51 AM REHABILITATION TEAM LEAD CALCIUM, IONIZED, S/B STAT 09/19/2023 9:51 AM REHABILITATION TEAM LEAD ACT, POCT, B Routine 09/19/2023 9:26 AM REHABILITATION TEAM LEAD HEMOGLOBIN (HGB), POCT, B Routine 09/19/2023 9:24 AM REHABILITATION TEAM LEAD LACTATE, B STAT 09/19/2023 8:25 AM REHABILITATION TEAM LEAD SODIUM, B STAT 09/19/2023 8:25 AM REHABILITATION TEAM LEAD ABG W/COOX STAT 09/19/2023 8:25 AM REHABILITATION TEAM LEAD POTASSIUM, B STAT 09/19/2023 8:25 AM REHABILITATION TEAM LEAD GLUCOSE, WHOLE BLOOD STAT 09/19/2023 8:25 AM REHABILITATION TEAM LEAD CALCIUM, IONIZED, S/B STAT 09/19/2023 8:25 AM REHABILITATION TEAM LEAD ACT, POCT, B Routine 09/19/2023 8:24 AM REHABILITATION TEAM LEAD ECHOCARDIOGRAM TRANSESOPHAGEAL 09/19/2023 7:03 AM REHABILITATION TEAM LEAD Stenosis Aortic Valve Acquired ISOLATION PULMONARY VEIN 09/19/2023 7:03 AM REHABILITATION TEAM LEAD Stenosis Aortic Valve Acquired LIGATION LEFT ATRIAL APPENDAGE 09/19/2023 7:03 AM REHABILITATION TEAM LEAD 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 09/19/2023 7:03 AM REHABILITATION TEAM LEAD Stenosis Aortic Valve Acquired REPLACEMENT AORTIC VALVE 09/19/2023 7:03 AM REHABILITATION TEAM LEAD Stenosis Aortic Valve Acquired PREPARE RED BLOOD CELLS STAT 09/18/2023 9:04 AM REHABILITATION TEAM LEAD PREPARE RED BLOOD CELLS STAT 09/18/2023 9:04 AM REHABILITATION TEAM LEAD PREPARE RED BLOOD CELLS STAT 09/18/2023 9:04 AM REHABILITATION TEAM LEAD documented in this encounter Results * (ABNORMAL) Glucose, POCT (09/26/2023 11:37 AM REHABILITATION TEAM LEAD) Glucose, POCT, B 190(H) 70 - 140 mg/dL 09/26/2023 11:54 AM REHABILITATION TEAM LEAD PCLX Site Capillary 09/26/2023 11:54 AM REHABILITATION TEAM LEAD PCLX Last Intake 3-4 hours 09/26/2023 11:54 AM REHABILITATION TEAM LEAD PCLX Blood 09/26/2023 11:3 7 AM REHABILITATION TEAM LEAD 09/26/2023 11:54 AM REHABILITATION TEAM LEAD Unknown Provider LAB POCT ORDERABLES- MANUAL POC [facility] [address] [place] [address], [place] PCLX [facility] POC [address] [place] [address] * (ABNORMAL) Glucose, POCT (09/26/2023 7:55 AM REHABILITATION TEAM LEAD) Pathologist [facility] Glucose, POCT, B 148(H) 70 - 140 mg/dL 09/26/2023 8:07 AM REHABILITATION TEAM LEAD PCLX Site Capillary 09/26/2023 8:07 AM REHABILITATION TEAM LEAD PCLX Last Intake 3-4 hours 09/26/2023 8:07 AM REHABILITATION TEAM LEAD PCLX Blood 09/26/2023 7:55 AM REHABILITATION TEAM LEAD 09/26/2023 8:07 AM REHABILITATION TEAM LEAD Unknown Provider LAB POCT ORDERABLES- MANUAL POC [facility] [address] [place] [address], [place] PCLX [facility] POC [address] [place] [address] * (ABNORMAL) Basic Metabolic Panel (09/26/2023 6:58 AM REHABILITATION TEAM LEAD) Pathologist [facility] Potassium, S 4.4 3.6 - 5.2 mmol/L 09/26/2023 8:19 AM REHABILITATION TEAM LEAD DTL Sodium, S 141 135 - 145 mmol/L 09/26/2023 8:19 AM REHABILITATION TEAM LEAD DTL Chloride, S 101 98 - 107 mmol/L 09/26/2023 8:19 AM REHABILITATION TEAM LEAD DTL Bicarbonate, S 31(H) 22 - 29 mmol/L 09/26/2023 8:19 AM REHABILITATION TEAM LEAD DTL Anion Gap 9 7 - 15 09/26/2023 8:19 AM REHABILITATION TEAM LEAD DTL BUN (Blood Urea Nitrogen), S 32(H) 8 - 24 mg/dL 09/26/2023 8:19 AM REHABILITATION TEAM LEAD DTL Creatinine 2.41(H) 0.74 - 1.35 mg/dL 09/26/2023 8:19 AM REHABILITATION TEAM LEAD DTL Estimated GFR (eGFR) 28(L) >=60 mL/min/BSA 09/26/2023 8:19 AM REHABILITATION TEAM LEAD DTL Comment: Estimated GFR calculated using the 2020 CKD_EPI creatinine equation. Calcium, Total, S 8.5(L) 8.8 - 10.2 mg/dL 09/26/2023 8:19 AM REHABILITATION TEAM LEAD DTL Glucose, S 151(H) 70 - 140 mg/dL 09/26/2023 8:19 AM REHABILITATION TEAM LEAD DTL Blood (Blood, Venous) 09/26/2023 6:58 AM REHABILITATION TEAM LEAD 09/26/2023 7:58 AM REHABILITATION TEAM LEAD Laila Basurto P.A.-C. LAB BLOOD ADD -ON Performing Organization Address [facility] Co de Phone Number [facility] [address] [facility] [address] [place] [address] * (ABNORMAL) Prothrombin Time (PT) (09/26/2023 6:58 AM REHABILITATION TEAM LEAD) Prothrombin Time, P 22.0(H) 9.4 - 12.5 sec 09/26/2023 8:25 AM REHABILITATION TEAM LEAD DTL INR 2.0 0.9 - 1.1 09/26/2023 8:25 AM REHABILITATION TEAM LEAD DTL Comment: ----ADDITIONAL INFORMATION---- Standard intensity warfarin therapeutic range: 2.0 to 3.0 ?? High intensity warfarin therapeutic range: 2.5 to 3.5 Blood (Blood, Venous) 09/26/2023 6:58 AM REHABILITATION TEAM LEAD 09/26/2023 7:42 AM REHABILITATION TEAM LEAD Anette Hair APRN, C.N.P., D.N.P. LAB B LOOD ADD-ON Performing Organization Address [facility] de Phone Number [facility] [address] [facility] [address] [place] [address] * (ABNORMAL) CBC without Differential (09/26/2023 6:58 AM REHABILITATION TEAM LEAD) Hemoglobin 8.3(L) 13.2 - 16.6 g/dL 09/26/2023 8:04 AM REHABILITATION TEAM LEAD DTL Hematocrit 25.5(L) 38.3 - 48.6 % 09/26/2023 8:04 AM REHABILITATION TEAM LEAD DTL Erythrocytes 2.70(L) 4.35 - 5.65 x10(12)/L 09/26/2023 8:04 AM REHABILITATION TEAM LEAD DTL MCV 94.4 78.2 - 97.9 fL 09/26/2023 8:04 AM REHABILITATION TEAM LEAD DTL RBC Distrib Width 13.5 11.8 - 14.5 % 09/26/2023 8:04 AM REHABILITATION TEAM LEAD DTL Platelet Count 214 135 - 317 x10(9)/L 09/26/2023 8:04 AM REHABILITATION TEAM LEAD DTL Leukocytes 6.7 3.4 - 9.6 x10(9)/L 09/26/2023 8:04 AM REHABILITATION TEAM LEAD DTL Blood (Blood, Venous) 09/26/2023 6:58 AM REHABILITATION TEAM LEAD 09/26/2023 7:43 AM REHABILITATION TEAM LEAD Jenny Jay, B.Ch., B.A.O. LAB BLOOD ADD-ON Performing Organization Address City/[facility]/ZIP Co de Phone Number [facility] [address] [place] [address], [place] [facility] [address] [place] [address] * (ABNORMAL) Glucose, POCT (09/25/2023 8:25 PM REHABILITATION TEAM LEAD) Glucose, POCT, B 193(H) 70 - 140 mg/dL 09/25/2023 8:31 PM REHABILITATION TEAM LEAD PCLX Site Capillary 09/25/2023 8:31 PM REHABILITATION TEAM LEAD PCLX Blood 09/25/2023 8:25 PM REHABILITATION TEAM LEAD 09/25/2023 8:31 PM REHABILITATION TEAM LEAD Unknown Provider LAB POCT ORDERABLES- MANUAL POC [facility] [address] [place] [address], [place] [facility] [address] [place] [address] * (ABNORMAL) Glucose, POCT (09/25/2023 5:36 PM REHABILITATION TEAM LEAD) Glucose, POCT, B 197(H) 70 - 140 mg/dL 09/25/2023 5:38 PM REHABILITATION TEAM LEAD PCLX Site Capillary 09/25/2023 5:38 PM REHABILITATION TEAM LEAD PCLX Last Intake 3-4 hours 09/25/2023 5:38 PM REHABILITATION TEAM LEAD PCLX Blood 09/25/2023 5:36 PM REHABILITATION TEAM LEAD 09/25/2023 5:39 PM REHABILITATION TEAM LEAD Unknown Provider LAB POCT ORDERABLES- MANUAL Performing Organization Address City/[facility]/ZIP Co de Phone Number POC [facility] [address] [place] [address], [place] [facility] [address] [place] [address] * (ABNORMAL) Glucose, POCT (09/25/2023 1:13 PM REHABILITATION TEAM LEAD) Glucose, POCT, B 196(H) 70 - 140 mg/dL 09/25/2023 1:15 PM REHABILITATION TEAM LEAD PCLX Last Intake 3-4 hours 09/25/2023 1:15 PM REHABILITATION TEAM LEAD PCLX Blood 09/25/2023 1:13 PM REHABILITATION TEAM LEAD 09/25/2023 1:16 PM REHABILITATION TEAM LEAD Unknown Provider LAB POCT ORDERABLES- MANUAL Performing Organization Address City/[facility] Co de Phone Number POC [facility] [address] [place] [address], [place] P[facility] [address] [place] [address] * (ABNORMAL) Basic Metabolic Panel (09/25/2023 9:26 AM REHABILITATION TEAM LEAD) Potassium, S 4.3 3.6 - 5.2 mmol/L 09/25/2023 10:36 AM REHABILITATION TEAM LEAD DTL Sodium, S 138 135 - 145 mmol/L 09/25/2023 10:36 AM REHABILITATION TEAM LEAD DTL Chloride, S 98 98 - 107 mmol/L 09/25/2023 10:36 AM REHABILITATION TEAM LEAD DTL Bicarbonate, S 30(H) 22 - 29 mmol/L 09/25/2023 10:36 AM REHABILITATION TEAM LEAD DTL Anion Gap 10 7 - 15 09/25/2023 10:36 AM REHABILITATION TEAM LEAD DTL BUN (Blood Urea Nitrogen), S 34(H) 8 - 24 mg/dL 09/25/2023 10:36 AM REHABILITATION TEAM LEAD DTL Creatinine 2.64(H) 0.74 - 1.35 mg/dL 09/25/2023 10:36 AM REHABILITATION TEAM LEAD DTL Estimated GFR (eGFR) 25(L) >=60 mL/min/BSA 09/25/2023 10:36 AM REHABILITATION TEAM LEAD DTL Comment: Estimated GFR calculated using the 2020 CKD_EPI creatinine equation. Calcium, Total, S 8.6(L) 8.8 - 10.2 mg/dL 09/25/2023 10:36 AM REHABILITATION TEAM LEAD DTL Glucose, S 177(H) 70 - 140 mg/dL 09/25/2023 10:36 AM REHABILITATION TEAM LEAD DTL Blood (Blood, Venous) 09/25/2023 9:26 AM REHABILITATION TEAM LEAD 09/25/2023 10:18 AM REHABILITATION TEAM LEAD Laila Basurto P.A.-C. LAB BLOOD ADD -ON Performing Organization Address City/[facility]/ZIP Co de Phone Number [facility] [address] [place] [address], [place] DTL [facility] [address] [place] [address] * (ABNORMAL) Prothrombin Time (PT) (09/25/2023 9:26 AM REHABILITATION TEAM LEAD) Prothrombin Time, P 22.4(H) 9.4 - 12.5 sec 09/25/2023 11:10 AM REHABILITATION TEAM LEAD DTL INR 2.0 0.9 - 1.1 09/25/2023 11:10 AM REHABILITATION TEAM LEAD DTL Comment: ----ADDITIONAL INFORMATION---- Standard intensity warfarin therapeutic range: 2.0 to 3.0 ?? High intensity warfarin therapeutic range: 2.5 to 3.5 Blood (Blood, Venous) 09/25/2023 9:26 AM REHABILITATION TEAM LEAD 09/25/2023 10:05 AM REHABILITATION TEAM LEAD Anette Hair APRN, C.N.P., D.N.P. LAB B LOOD ADD-ON [facility] [address] [place] [address], [place] D[place] [facility] [address] [place] [address] * (ABNORMAL) CBC without Differential (09/25/2023 9:26 AM REHABILITATION TEAM LEAD) Pathologist [facility] Hemoglobin 9.0(L) 13.2 - 16.6 g/dL 09/25/2023 10:55 AM REHABILITATION TEAM LEAD DTL Hematocrit 27.2(L) 38.3 - 48.6 % 09/25/2023 10:55 AM REHABILITATION TEAM LEAD DTL Erythrocytes 2.93(L) 4.35 - 5.65 x10(12)/L 09/25/2023 10:55 AM REHABILITATION TEAM LEAD DTL MCV 92.8 78.2 - 97.9 fL 09/25/2023 10:55 AM REHABILITATION TEAM LEAD DTL RBC Distrib Width 13.6 11.8 - 14.5 % 09/25/2023 10:55 AM REHABILITATION TEAM LEAD DTL Platelet Count 229 135 - 317 x10(9)/L 09/25/2023 10:55 AM REHABILITATION TEAM LEAD DTL Leukocytes 7.5 3.4 - 9.6 x10(9)/L 09/25/2023 10:55 AM REHABILITATION TEAM LEAD DTL Blood (Blood, Venous) 09/25/2023 9:26 AM REHABILITATION TEAM LEAD 09/25/2023 10:09 AM REHABILITATION TEAM LEAD Jenny Jay, B.Betty., B.A.O. LAB BLOOD ADD-ON Performing Organization Address City/State/[facility] [place] [address], [place] [address] * (ABNORMAL) Glucose, POCT (09/25/2023 8:10 AM REHABILITATION TEAM LEAD) Pathologist [facility] Glucose, POCT, B 161(H) 70 - 140 mg/dL 09/25/2023 8:19 AM REHABILITATION TEAM LEAD PCLX Site Capillary 09/25/2023 8:19 AM REHABILITATION TEAM LEAD PCLX Last Intake 3-4 hours 09/25/2023 8:19 AM REHABILITATION TEAM LEAD PCLX Blood 09/25/2023 8:10 AM REHABILITATION TEAM LEAD 09/25/2023 8:19 AM REHABILITATION TEAM LEAD Unknown Provider LAB POCT ORDERABLES- MANUAL POC [facility] [address] [place] [address], [place] PCLX [facility] POC [address] [place] [address] * DX Chest AP or PA and Lateral 2 Views (09/25/2023 7:26 AM REHABILITATION TEAM LEAD) Anatomical Region Laterality Modality Chest, Thoracic RST LOS, Tho racic ARZ LOS, Thoracic FLA LOS N/A Digital Radiography 09/25/2023 8:59 AM REHABILITATION TEAM LEAD Impressions 09/25/2023 9:01 AM REHABILITATION TEAM LEAD Sternotomy with aortic valve replacement. Mild enlargement of cardiac silhouette. Loop recorder. Trace pleural effusions. Azygos fissure. Aortic calcification. Degenerative arthritis thoracic spine. No pneumothorax. No significant change since 09/23/2023. Narrative 09/25/2023 9:01 AM REHABILITATION TEAM LEAD EXAM: ??DX CHEST AP OR PA AND [...] * ECG 12 Lead (09/25/2023 4:55 AM REHABILITATION TEAM LEAD) Ventricular Rate ECG/Min 69 BPM MUSE ND Interval 140 ms MUSE QRSD Interval 86 ms MUSE QT Interval 420 ms MUSE QTC Interval 450 ms MUSE P [place] 30 degrees MUSE R [place] 29 degrees MUSE T Wave [place] 74 degrees MUSE 09/25/2023 4:55 AM REHABILITATION TEAM LEAD 09/25/2023 5:12 AM REHABILITATION TEAM LEAD Impressions MUSE - 09/25/2023 5:13 AM REHABILITATION TEAM LEAD Normal sinus rhythm Low voltage QRS in [...] [place] Laila Basurto P.A.-C. ECG ORDERABLE S Performing Organization Address [facility]/ZIP Co de Phone Number MUSE NA * (ABNORMAL) Glucose, POCT (09/24/2023 8:33 PM REHABILITATION TEAM LEAD) Glucose, POCT, B 183(H) 70 - 140 mg/dL 09/24/2023 8:40 PM REHABILITATION TEAM LEAD PCLX Site Capillary 09/24/2023 8:40 PM REHABILITATION TEAM LEAD PCLX Blood 09/24/2023 8:33 PM REHABILITATION TEAM LEAD 09/24/2023 8:40 PM REHABILITATION TEAM LEAD Unknown Provider LAB POCT ORDERABLES- MANUAL Performing Organization Address [facility] de Phone Number [facility] [address] [facility] POC [address] [place] [address] * (ABNORMAL) Glucose, POCT (09/24/2023 4:44 PM REHABILITATION TEAM LEAD) Glucose, POCT, B 221(H) 70 - 140 mg/dL 09/24/2023 4:59 PM REHABILITATION TEAM LEAD PCLX Site Capillary 09/24/2023 4:59 PM REHABILITATION TEAM LEAD PCLX Last Intake 2-3 hours 09/24/2023 4:59 PM REHABILITATION TEAM LEAD PCLX Blood 09/24/2023 4:44 PM REHABILITATION TEAM LEAD 09/24/2023 5:00 PM REHABILITATION TEAM LEAD Unknown Provider LAB POCT ORDERABLES- MANUAL Performing Organization Address [facility] Co de Phone Number [facility] [address] [place] [address], [place] [facility] [facility] POC [address] [place] [address] * (TTE) 2D ECHO DOPPLER COLOR (09/24/2023 3:26 PM REHABILITATION TEAM LEAD) Ejection Fraction 64 MC CV EIMS Mid-Ascending [...] Region Laterality Modality Echocardiography 09/24/2023 1:57 PM REHABILITATION TEAM LEAD Impressions 09/24/2023 5:48 PM REHABILITATION TEAM LEAD Echocardiogram performed per dismissal echo protocol. Status [...] the Order-Level Documents. Narrative 09/24/2023 5:48 PM REHABILITATION TEAM LEAD For the complete report, see the Order-Level [...] disc not well seen. Mean aortic prosthetic [id number] mmHg; EOA 2.1 cm2. Trivial (washing jets) [...] * (ABNORMAL) Glucose, POCT (09/24/2023 12:43 PM REHABILITATION TEAM LEAD) Glucose, POCT, B 216(H) 70 - 140 mg/dL 09/24/2023 12:51 PM REHABILITATION TEAM LEAD PCLX Site Capillary 09/24/2023 12:51 PM REHABILITATION TEAM LEAD PCLX Last Intake 3-4 hours 09/24/2023 12:51 PM REHABILITATION TEAM LEAD PCLX Blood 09/24/2023 12:4 3 PM REHABILITATION TEAM LEAD 09/24/2023 12:51 PM REHABILITATION TEAM LEAD Unknown Provider LAB POCT ORDERABLES- MANUAL Performing Organization Address City/[facility] Co de Phone Number POC [facility] [address] [place] [address], [place] [facility] [facility] [address] [place] [address] * Glucose, POCT (09/24/2023 7:19 AM REHABILITATION TEAM LEAD) Glucose, POCT, B 138 70 - 140 mg/dL 09/24/2023 7:30 AM REHABILITATION TEAM LEAD PCLX Site Capillary 09/24/2023 7:30 AM REHABILITATION TEAM LEAD PCLX Last Intake 3-4 hours 09/24/2023 7:30 AM REHABILITATION TEAM LEAD PCLX Blood 09/24/2023 7:19 AM REHABILITATION TEAM LEAD 09/24/2023 7:30 AM REHABILITATION TEAM LEAD Unknown Provider LAB POCT ORDERABLES- MANUAL Performing Organization Address City/[facility] Co de Phone Number [facility] [address] [place] [address], [place] [facility] [facility] [address] [place] [address] * (ABNORMAL) Basic Metabolic Panel (09/24/2023 6:49 AM REHABILITATION TEAM LEAD) Potassium, S 4.3 3.6 - 5.2 mmol/L 09/24/2023 8:25 AM REHABILITATION TEAM LEAD DTL Sodium, S 138 135 - 145 mmol/L 09/24/2023 8:25 AM REHABILITATION TEAM LEAD DTL Chloride, S 99 98 - 107 mmol/L 09/24/2023 8:25 AM REHABILITATION TEAM LEAD DTL Bicarbonate, S 29 22 - 29 mmol/L 09/24/2023 8:25 AM REHABILITATION TEAM LEAD DTL Anion Gap 10 7 - 15 09/24/2023 8:25 AM REHABILITATION TEAM LEAD DTL BUN (Blood Urea Nitrogen), S 36(H) 8 - 24 mg/dL 09/24/2023 8:25 AM REHABILITATION TEAM LEAD DTL Creatinine 2.48(H) 0.74 - 1.35 mg/dL 09/24/2023 8:25 AM REHABILITATION TEAM LEAD DTL Estimated GFR (eGFR) 27(L) >=60 mL/min/BSA 09/24/2023 8:25 AM REHABILITATION TEAM LEAD DTL Comment: Estimated GFR calculated using the 2020 CKD_EPI creatinine equation. Calcium, Total, S 8.3(L) 8.8 - 10.2 mg/dL 09/24/2023 8:25 AM REHABILITATION TEAM LEAD DTL Glucose, S 148(H) 70 - 140 mg/dL 09/24/2023 8:25 AM REHABILITATION TEAM LEAD DTL Blood (Blood, Venous) 09/24/2023 6:49 AM REHABILITATION TEAM LEAD 09/24/2023 8:01 AM REHABILITATION TEAM LEAD Laila Basurto P.A.-C. [place] [address], [place] [address] * (ABNORMAL) Prothrombin Time (PT) (09/24/2023 6:49 AM REHABILITATION TEAM LEAD) Prothrombin Time, P 28.9(H) 9.4 - 12.5 sec 09/24/2023 8:17 AM REHABILITATION TEAM LEAD DTL INR 2.6 0.9 - 1.1 09/24/2023 8:17 AM REHABILITATION TEAM LEAD DTL Comment: ----ADDITIONAL INFORMATION---- Standard intensity warfarin therapeutic range: 2.0 to 3.0 ?? High intensity warfarin therapeutic range: 2.5 to 3.5 Blood (Blood, Venous) 09/24/2023 6:49 AM REHABILITATION TEAM LEAD 09/24/2023 7:44 AM REHABILITATION TEAM LEAD Anette Hair APRN, C.N.P., D.N.PJarrett LAB B LOOD ADD-ON Performing Organization Address [facility] de Phone Number [facility] [address] [place], [place] [address] [address] [place] [address] * (ABNORMAL) CBC without Differential (09/24/2023 6:49 AM REHABILITATION TEAM LEAD) Pathologist [facility] Hemoglobin 8.3(L) 13.2 - 16.6 g/dL 09/24/2023 8:01 AM REHABILITATION TEAM LEAD DTL Hematocrit 24.2(L) 38.3 - 48.6 % 09/24/2023 8:01 AM REHABILITATION TEAM LEAD DTL Erythrocytes 2.62(L) 4.35 - 5.65 x10(12)/L 09/24/2023 8:01 AM REHABILITATION TEAM LEAD DTL MCV 92.4 78.2 - 97.9 fL 09/24/2023 8:01 AM REHABILITATION TEAM LEAD DTL RBC Distrib Width 13.3 11.8 - 14.5 % 09/24/2023 8:01 AM REHABILITATION TEAM LEAD DTL Platelet Count 163 135 - 317 x10(9)/L 09/24/2023 8:01 AM REHABILITATION TEAM LEAD DTL Leukocytes 6.4 3.4 - 9.6 x10(9)/L 09/24/2023 8:01 AM REHABILITATION TEAM LEAD DTL Blood (Blood, Venous) 09/24/2023 6:49 AM REHABILITATION TEAM LEAD 09/24/2023 7:46 AM REHABILITATION TEAM LEAD Jenny Jay, B.Ch., B.A.O. LAB BLOOD ADD-ON Performing Organization Address City/[facility] Co de Phone Number [facility] [address] [place] [address], [facility] [address] [place] [address] * (ABNORMAL) Glucose, POCT (09/23/2023 9:38 PM REHABILITATION TEAM LEAD) Glucose, POCT, B 186(H) 70 - 140 mg/dL 09/23/2023 9:51 PM REHABILITATION TEAM LEAD PCLX Site Capillary 09/23/2023 9:51 PM REHABILITATION TEAM LEAD PCLX Last Intake 1-2 hours 09/23/2023 9:51 PM REHABILITATION TEAM LEAD PCLX Blood 09/23/2023 9:38 PM REHABILITATION TEAM LEAD 09/23/2023 9:51 PM REHABILITATION TEAM LEAD Unknown Provider LAB POCT ORDERABLES- MANUAL Performing Organization Address City/[facility] Co de Phone Number POC [facility] [address] [place] [address], [place] [facility] [facility] [address] [place] [address] * (ABNORMAL) Glucose, POCT (09/23/2023 5:02 PM REHABILITATION TEAM LEAD) Glucose, POCT, B 190(H) 70 - 140 mg/dL 09/23/2023 5:17 PM REHABILITATION TEAM LEAD PCLX Site Capillary 09/23/2023 5:17 PM REHABILITATION TEAM LEAD PCLX Last Intake 3-4 hours 09/23/2023 5:17 PM REHABILITATION TEAM LEAD PCLX Blood 09/23/2023 5:02 PM REHABILITATION TEAM LEAD 09/23/2023 5:17 PM REHABILITATION TEAM LEAD Unknown Provider LAB POCT ORDERABLES- MANUAL Performing Organization Address [facility] de Phone Number [facility] [address] [place] [address], [place] [facility] [facility] [address] [place] [address] * (ABNORMAL) Basic Metabolic Panel (09/23/2023 3:44 PM REHABILITATION TEAM LEAD) Potassium, P 4.4 3.6 - 5.2 mmol/L 09/23/2023 4:06 PM REHABILITATION TEAM LEAD STMA Sodium, P 136 135 - 145 mmol/L 09/23/2023 4:06 PM REHABILITATION TEAM LEAD STMA Chloride, P 97(L) 98 - 107 mmol/L 09/23/2023 4:06 PM REHABILITATION TEAM LEAD STMA Bicarbonate, P 30(H) 22 - 29 mmol/L 09/23/2023 4:06 PM REHABILITATION TEAM LEAD STMA Anion Gap, P 9 7 - 15 09/23/2023 4:06 PM REHABILITATION TEAM LEAD STMA BUN (Blood Urea Nitrogen), P 42(H) 8 - 24 mg/dL 09/23/2023 4:06 PM REHABILITATION TEAM LEAD STMA Creatinine 2.54(H) 0.74 - 1.35 mg/dL 09/23/2023 4:06 PM REHABILITATION TEAM LEAD STMA Estimated GFR (eGFR) 26(L) >=60 mL/min/BSA 09/23/2023 4:06 PM REHABILITATION TEAM LEAD STMA Comment: Estimated GFR calculated using the 2020 CKD_EPI creatinine equation. Calcium, Total, P 8.9 8.8 - 10.2 mg/dL 09/23/2023 4:06 PM REHABILITATION TEAM LEAD STMA Glucose, P 213(H) 70 - 140 mg/dL 09/23/2023 4:06 PM REHABILITATION TEAM LEAD STMA Blood (Blood, Venous) 09/23/2023 3:44 PM REHABILITATION TEAM LEAD 09/23/2023 3:50 PM REHABILITATION TEAM LEAD Laila Basurto P.A.-C. LAB BLOOD ADD -ON Performing Organization Address City/[facility]/ZIP Co de Phone Number [facility] [address] [place], [place] [address] [place] [address] [address] [place] [address] * (ABNORMAL) Hemoglobin (09/23/2023 3:44 PM REHABILITATION TEAM LEAD) Hemoglobin 8.1(L) 13.2 - 16.6 g/dL 09/23/2023 3:52 PM REHABILITATION TEAM LEAD STMA Blood (Blood, Venous) 09/23/2023 3:44 PM REHABILITATION TEAM LEAD 09/23/2023 3:49 PM REHABILITATION TEAM LEAD Laila Basurto P.A.-C. LAB BLOOD ADD -ON Performing Organization Address City/[facility]/ZIP Co de Phone Number [facility] [address] [place], [place] [address] [place] [address] * (ABNORMAL) Prothrombin Time (PT) (09/23/2023 3:44 PM REHABILITATION TEAM LEAD) Prothrombin Time, P 41.6(H) 9.4 - 12.5 sec 09/23/2023 3:56 PM REHABILITATION TEAM LEAD STMA INR 3.7 0.9 - 1.1 09/23/2023 3:56 PM REHABILITATION TEAM LEAD STMA Comment: ----ADDITIONAL INFORMATION---- Standard intensity warfarin therapeutic range: 2.0 to 3.0 ?? High intensity warfarin therapeutic range: 2.5 to 3.5 Blood (Blood, Venous) 09/23/2023 3:44 PM REHABILITATION TEAM LEAD 09/23/2023 3:49 PM REHABILITATION TEAM LEAD Laila Basurto P.A.-C. LAB BLOOD ADD -ON Performing Organization Address City/[facility]/ZIP Co de Phone Number [facility] [address] [place], [place] [address] [place] [address] STMA [facility] [address] [place] [address] * (ABNORMAL) Glucose, POCT (09/23/2023 12:19 PM REHABILITATION TEAM LEAD) Pathologist [facility] Glucose, POCT, B 169(H) 70 - 140 mg/dL 09/23/2023 12:26 PM REHABILITATION TEAM LEAD PCLX Site Capillary 09/23/2023 12:26 PM REHABILITATION TEAM LEAD PCLX Last Intake 3-4 hours 09/23/2023 12:26 PM REHABILITATION TEAM LEAD PCLX Blood 09/23/2023 12:1 9 PM REHABILITATION TEAM LEAD 09/23/2023 12:26 PM REHABILITATION TEAM LEAD Unknown Provider LAB POCT ORDERABLES- MANUAL Performing Organization Address [facility] Co de Phone Number POC [facility] [address] [place] [address], [place] [facility] [address] [place] [address] * DX Chest AP or PA and Lateral 2 Views (09/23/2023 8:44 AM REHABILITATION TEAM LEAD) Anatomical Region Laterality Modality Chest, Thoracic RST LOS, Tho racic ARZ LOS, Thoracic FLA LOS N/A Digital Radiography 09/23/2023 10:2 2 AM REHABILITATION TEAM LEAD Impressions 09/23/2023 10:23 AM REHABILITATION TEAM LEAD The right IJ vascular sheath has been removed since 09/20/2023. Improved aeration with decrease accentuation of the cardiovascular structures. Decrease vascular congestion. Likely similar small bilateral pleural effusions, allowing for differences in technique. Loop recorder, sternotomy, AVR, normal variant azygos lobe are again identified. Narrative 09/23/2023 10:23 AM REHABILITATION TEAM LEAD EXAM: ??DX CHEST AP OR PA AND [...] lobe are again identified. Laila Basurto P.A.-C. G DIAGNOSTI C IMAGING PROCEDURES * (ABNORMAL) Basic Metabolic Panel (09/23/2023 7:34 AM REHABILITATION TEAM LEAD) Pathologist [facility] Potassium, S 4.5 3.6 - 5.2 mmol/L 09/23/2023 8:46 AM REHABILITATION TEAM LEAD DTL Sodium, S 135 135 - 145 mmol/L 09/23/2023 8:46 AM REHABILITATION TEAM LEAD DTL Chloride, S 98 98 - 107 mmol/L 09/23/2023 8:46 AM REHABILITATION TEAM LEAD DTL Bicarbonate, S 29 22 - 29 mmol/L 09/23/2023 8:46 AM REHABILITATION TEAM LEAD DTL Anion Gap 8 7 - 15 09/23/2023 8:46 AM REHABILITATION TEAM LEAD DTL BUN (Blood Urea Nitrogen), S 39(H) 8 - 24 mg/dL 09/23/2023 8:46 AM REHABILITATION TEAM LEAD DTL Creatinine 2.54(H) 0.74 - 1.35 mg/dL 09/23/2023 8:46 AM REHABILITATION TEAM LEAD DTL Estimated GFR (eGFR) 26(L) >=60 mL/min/BSA 09/23/2023 8:46 AM REHABILITATION TEAM LEAD DTL Comment: Estimated GFR calculated using the 2020 CKD_EPI creatinine equation. Calcium, Total, S 8.3(L) 8.8 - 10.2 mg/dL 09/23/2023 8:46 AM REHABILITATION TEAM LEAD DTL Glucose, S 159(H) 70 - 140 mg/dL 09/23/2023 8:46 AM REHABILITATION TEAM LEAD DTL Blood (Blood, Venous) 09/23/2023 7:34 AM REHABILITATION TEAM LEAD 09/23/2023 8:25 AM REHABILITATION TEAM LEAD Laila Basurto P.A.-C. LAB BLOOD ADD -ON Performing Organization Address City/[facility] Co de Phone Number [facility] [address] [place] [address], [place] DTL [facility] [address] [place] [address] * (ABNORMAL) Prothrombin Time (PT) (09/23/2023 7:34 AM REHABILITATION TEAM LEAD) Pathologist [facility] Prothrombin Time, P 35.5(H) 9.4 - 12.5 sec 09/23/2023 8:23 AM REHABILITATION TEAM LEAD DTL INR 3.2 0.9 - 1.1 09/23/2023 8:23 AM REHABILITATION TEAM LEAD DTL Comment: ----ADDITIONAL INFORMATION---- Standard intensity warfarin therapeutic range: 2.0 to 3.0 ?? High intensity warfarin therapeutic range: 2.5 to 3.5 Blood (Blood, Venous) 09/23/2023 7:34 AM REHABILITATION TEAM LEAD 09/23/2023 8:05 AM REHABILITATION TEAM LEAD Anette Hair APRN, C.N.P., D.N.P. LAB B LOOD ADD-ON Performing Organization Address City/[facility]/ZIP Co de Phone Number [facility] [address] [place] [address], [place] DTL [facility] [address] [place] [address] * (ABNORMAL) CBC without Differential (09/23/2023 7:34 AM REHABILITATION TEAM LEAD) Hemoglobin 8.2(L) 13.2 - 16.6 g/dL 09/23/2023 8:13 AM REHABILITATION TEAM LEAD DTL Hematocrit 24.2(L) 38.3 - 48.6 % 09/23/2023 8:13 AM REHABILITATION TEAM LEAD DTL Erythrocytes 2.67(L) 4.35 - 5.65 x10(12)/L 09/23/2023 8:13 AM REHABILITATION TEAM LEAD DTL MCV 90.6 78.2 - 97.9 fL 09/23/2023 8:13 AM REHABILITATION TEAM LEAD DTL RBC Distrib Width 13.2 11.8 - 14.5 % 09/23/2023 8:13 AM REHABILITATION TEAM LEAD DTL Platelet Count 147 135 - 317 x10(9)/L 09/23/2023 8:13 AM REHABILITATION TEAM LEAD DTL Leukocytes 8.3 3.4 - 9.6 x10(9)/L 09/23/2023 8:13 AM REHABILITATION TEAM LEAD DTL Blood (Blood, Venous) 09/23/2023 7:34 AM REHABILITATION TEAM LEAD 09/23/2023 8:04 AM REHABILITATION TEAM LEAD Jenny Jay, B.Ch., B.A.O. LAB BLOOD ADD-ON [facility] [place] [address], [place] [address] * (ABNORMAL) Hepatic Function Panel (09/23/2023 7:31 AM REHABILITATION TEAM LEAD) Bilirubin, Total, S 0.5 0.0 - 1.2 mg/dL 09/23/2023 9:47 AM REHABILITATION TEAM LEAD DTL Bilirubin, Direct, S <0.2 0.0 - 0.3 mg/dL 09/23/2023 9:47 AM REHABILITATION TEAM LEAD DTL Aspartate Aminotransferase (AST), S 21 8 - 48 U/L 09/23/2023 9:47 AM REHABILITATION TEAM LEAD DTL Alanine Aminotransferase (ALT), S 9 7 - 55 U/L 09/23/2023 9:47 AM REHABILITATION TEAM LEAD DTL Alkaline Phosphatase, S 63 40 - 129 U/L 09/23/2023 9:47 AM REHABILITATION TEAM LEAD DTL Albumin, S 3.0(L) 3.5 - 5.0 g/dL 09/23/2023 9:47 AM REHABILITATION TEAM LEAD DTL Protein, Total, S 4.9(L) 6.3 - 7.9 g/dL 09/23/2023 9:47 AM REHABILITATION TEAM LEAD DTL Blood (Blood, Venous) 09/23/2023 7:31 AM REHABILITATION TEAM LEAD 09/23/2023 9:19 AM REHABILITATION TEAM LEAD Laila Basurto P.A.-C. LAB BLOOD ADD -ON [facility] [address] [place] [address], [place] D[place] [facility] [address] [place] [address] * (ABNORMAL) Glucose, POCT (09/23/2023 7:24 AM REHABILITATION TEAM LEAD) Glucose, POCT, B 147(H) 70 - 140 mg/dL 09/23/2023 7:40 AM REHABILITATION TEAM LEAD PCLX Site Capillary 09/23/2023 7:40 AM REHABILITATION TEAM LEAD PCLX Last Intake 3-4 hours 09/23/2023 7:40 AM REHABILITATION TEAM LEAD PCLX Blood 09/23/2023 7:24 AM REHABILITATION TEAM LEAD 09/23/2023 7:40 AM REHABILITATION TEAM LEAD Unknown Provider LAB POCT ORDERABLES- MANUAL Performing Organization Address City/[facility]/ZIP Co de Phone Number POC [facility] [address] [place] [address], [place] [facility]CL[facility] [address] [place] [address] * (ABNORMAL) Basic Metabolic Panel (09/22/2023 11:14 PM REHABILITATION TEAM LEAD) Potassium, P 4.4 3.6 - 5.2 mmol/L 09/22/2023 11:40 PM REHABILITATION TEAM LEAD STMA Sodium, P 134(L) 135 - 145 mmol/L 09/22/2023 11:40 PM REHABILITATION TEAM LEAD STMA Chloride, P 94(L) 98 - 107 mmol/L 09/22/2023 11:40 PM REHABILITATION TEAM LEAD STMA Bicarbonate, P 28 22 - 29 mmol/L 09/22/2023 11:40 PM REHABILITATION TEAM LEAD STMA Anion Gap, P 12 7 - 15 09/22/2023 11:40 PM REHABILITATION TEAM LEAD [facility]MA BUN (Blood Urea Nitrogen), P 40(H) 8 - 24 mg/dL 09/22/2023 11:40 PM REHABILITATION TEAM LEAD STMA Creatinine 2.38(H) 0.74 - 1.35 mg/dL 09/22/2023 11:40 PM REHABILITATION TEAM LEAD STMA Estimated GFR (eGFR) 28(L) >=60 mL/min/BSA 09/22/2023 11:40 PM REHABILITATION TEAM LEAD [facility]MA Comment: Estimated GFR calculated using the 2020 CKD_EPI creatinine equation. Calcium, Total, P 8.7(L) 8.8 - 10.2 mg/dL 09/22/2023 11:40 PM REHABILITATION TEAM LEAD STMA Glucose, P 146(H) 70 - 140 mg/dL 09/22/2023 11:40 PM REHABILITATION TEAM LEAD STMA Blood (Blood, Venous) 09/22/2023 11:14 PM REHABILITATION TEAM LEAD 09/22/2023 11:24 PM REHABILITATION TEAM LEAD Marcela Lee APRN, C.N.P., M.S.N. LAB BLOO D ADD-ON [facility] [address] [place] [address], [facility] [address] [place] [address] * (ABNORMAL) CBC without Differential (09/22/2023 11:14 PM REHABILITATION TEAM LEAD) Hemoglobin 8.6(L) 13.2 - 16.6 g/dL 09/22/2023 11:26 PM REHABILITATION TEAM LEAD STMA Hematocrit 25.7(L) 38.3 - 48.6 % 09/22/2023 11:26 PM REHABILITATION TEAM LEAD STMA Erythrocytes 2.89(L) 4.35 - 5.65 x10(12)/L 09/22/2023 11:26 PM REHABILITATION TEAM LEAD STMA MCV 88.9 78.2 - 97.9 fL 09/22/2023 11:26 PM REHABILITATION TEAM LEAD STMA RBC Distrib Width 13.2 11.8 - 14.5 % 09/22/2023 11:26 PM REHABILITATION TEAM LEAD STMA Platelet Count 146 135 - 317 x10(9)/L 09/22/2023 11:26 PM REHABILITATION TEAM LEAD STMA Leukocytes 9.3 3.4 - 9.6 x10(9)/L 09/22/2023 11:26 PM REHABILITATION TEAM LEAD STMA Blood (Blood, Venous) 09/22/2023 11:14 PM REHABILITATION TEAM LEAD 09/22/2023 11:24 PM REHABILITATION TEAM LEAD Radha Tesfaye APRNNGrant., M.S.N. LAB BLOO D ADD-ON Performing Organization Address [facility] Co de Phone Number [facility] [address] [place] [address], [place] STMA [facility] [address] [place] [address] * (ABNORMAL) Glucose, POCT (09/22/2023 9:29 PM REHABILITATION TEAM LEAD) Glucose, POCT, B 159(H) 70 - 140 mg/dL 09/22/2023 9:31 PM REHABILITATION TEAM LEAD PCLX Blood 09/22/2023 9:29 PM REHABILITATION TEAM LEAD 09/22/2023 9:32 PM REHABILITATION TEAM LEAD Unknown Provider LAB POCT ORDERABLES- MANUAL Performing Organization Address [facility] de Phone Number POC [facility] [address] [place] [address], [place] [facility] POC [address] [place] [address] * Transfuse Red Blood Cells : (09/22/2023 4:21 PM REHABILITATION TEAM LEAD) Laila Basurto P.A.-C. BLOOD TRANSFU RAHUL ORDERABLES * Transfuse Red Blood Cells : , 1 Units (09/22/2023 4:21 PM REHABILITATION TEAM LEAD) Laila Basurto P.A.-C. BLOOD TRANSFU RAHUL ORDERABLES * (ABNORMAL) Glucose, POCT (09/22/2023 11:27 AM REHABILITATION TEAM LEAD) Glucose, POCT, B 192(H) 70 - 140 mg/dL 09/22/2023 11:36 AM REHABILITATION TEAM LEAD PCLX Site Capillary 09/22/2023 11:36 AM REHABILITATION TEAM LEAD PCLX Last Intake 1-2 hours 09/22/2023 11:36 AM REHABILITATION TEAM LEAD PCLX Blood 09/22/2023 11:2 7 AM REHABILITATION TEAM LEAD 09/22/2023 11:37 AM REHABILITATION TEAM LEAD Unknown Provider LAB POCT ORDERABLES- MANUAL Performing Organization Address City/[facility]/ZIP Co de Phone Number POC [facility] [address] [place] [address], [place] [facility] POC [address] [place] [address] * Glucose, POCT (09/22/2023 7:34 AM REHABILITATION TEAM LEAD) Glucose, POCT, B 133 70 - 140 mg/dL 09/22/2023 7:46 AM REHABILITATION TEAM LEAD PCLX Site Capillary 09/22/2023 7:46 AM REHABILITATION TEAM LEAD PCLX Last Intake 3-4 hours 09/22/2023 7:46 AM REHABILITATION TEAM LEAD PCLX Blood 09/22/2023 7:34 AM REHABILITATION TEAM LEAD 09/22/2023 7:46 AM REHABILITATION TEAM LEAD Unknown Provider LAB POCT ORDERABLES- MANUAL Performing Organization Address City/[facility] Co de Phone Number POC [facility] [address] [place] [address], [place] [facility] POC [address] [place] [address] * (ABNORMAL) Basic Metabolic Panel (09/22/2023 7:04 AM REHABILITATION TEAM LEAD) Potassium, S 4.5 3.6 - 5.2 mmol/L 09/22/2023 8:18 AM REHABILITATION TEAM LEAD DTL Sodium, S 135 135 - 145 mmol/L 09/22/2023 8:18 AM REHABILITATION TEAM LEAD DTL Chloride, S 99 98 - 107 mmol/L 09/22/2023 8:18 AM REHABILITATION TEAM LEAD DTL Bicarbonate, S 28 22 - 29 mmol/L 09/22/2023 8:18 AM REHABILITATION TEAM LEAD DTL Anion Gap 8 7 - 15 09/22/2023 8:18 AM REHABILITATION TEAM LEAD DTL BUN (Blood Urea Nitrogen), S 37(H) 8 - 24 mg/dL 09/22/2023 8:18 AM REHABILITATION TEAM LEAD DTL Creatinine 2.38(H) 0.74 - 1.35 mg/dL 09/22/2023 8:18 AM REHABILITATION TEAM LEAD DTL Estimated GFR (eGFR) 28(L) >=60 mL/min/BSA 09/22/2023 8:18 AM REHABILITATION TEAM LEAD DTL Comment: Estimated GFR calculated using the 2020 CKD_EPI creatinine equation. Calcium, Total, S 8.5(L) 8.8 - 10.2 mg/dL 09/22/2023 8:18 AM REHABILITATION TEAM LEAD DTL Glucose, S 141(H) 70 - 140 mg/dL 09/22/2023 8:18 AM REHABILITATION TEAM LEAD DTL Blood (Blood, Venous) 09/22/2023 7:04 AM REHABILITATION TEAM LEAD 09/22/2023 7:58 AM REHABILITATION TEAM LEAD Laila Basurto P.A.-C. LAB BLOOD ADD -ON Performing Organization Address City/[facility]/ZIP Co de Phone Number [facility] [address] [place] [address], [place] DTL [facility] [address] [place] [address] * (ABNORMAL) Prothrombin Time (PT) (09/22/2023 7:04 AM REHABILITATION TEAM LEAD) Prothrombin Time, P 16.7(H) 9.4 - 12.5 sec 09/22/2023 7:53 AM REHABILITATION TEAM LEAD DTL INR 1.5 0.9 - 1.1 09/22/2023 7:53 AM REHABILITATION TEAM LEAD DTL Comment: ----ADDITIONAL INFORMATION---- Standard intensity warfarin therapeutic range: 2.0 to 3.0 ?? High intensity warfarin therapeutic range: 2.5 to 3.5 Blood (Blood, Venous) 09/22/2023 7:04 AM REHABILITATION TEAM LEAD 09/22/2023 7:37 AM REHABILITATION TEAM LEAD Anette Hair APRN, C.N.P., D.N.P. LAB B LOOD ADD-ON Performing Organization Address City/[facility]/ZIP Co de Phone Number [facility] [address] [place] [address], [place] DTL [facility] [address] [place] [address] * (ABNORMAL) CBC without Differential (09/22/2023 7:04 AM REHABILITATION TEAM LEAD) Hemoglobin 7.3(L) 13.2 - 16.6 g/dL 09/22/2023 7:47 AM REHABILITATION TEAM LEAD DTL Hematocrit 21.0(L) 38.3 - 48.6 % 09/22/2023 7:47 AM REHABILITATION TEAM LEAD DTL Erythrocytes 2.36(L) 4.35 - 5.65 x10(12)/L 09/22/2023 7:47 AM REHABILITATION TEAM LEAD DTL MCV 89.0 78.2 - 97.9 fL 09/22/2023 7:47 AM REHABILITATION TEAM LEAD DTL RBC Distrib Width 13.1 11.8 - 14.5 % 09/22/2023 7:47 AM REHABILITATION TEAM LEAD DTL Platelet Count 129(L) 135 - 317 x10(9)/L 09/22/2023 8:40 AM REHABILITATION TEAM LEAD DTL Comment:Results confirmed by smear, no clumping or interference seen. Leukocytes 9.2 3.4 - 9.6 x10(9)/L 09/22/2023 8:40 AM REHABILITATION TEAM LEAD DTL Blood (Blood, Venous) 09/22/2023 7:04 AM REHABILITATION TEAM LEAD 09/22/2023 7:37 AM REHABILITATION TEAM LEAD Jenny Jay, B.Ch., B.A.O. LAB BLOOD ADD-ON [facility] [address] [place] [address], [place] [facility] [address] [place] [address] * Type and Screen (with Reflex Antibody ID) (09/22/2023 7:01 AM REHABILITATION TEAM LEAD) Pathologist [facility] ABORh A Neg Not applicable 09/22/2023 2:10 PM REHABILITATION TEAM LEAD STRM Antibody Screen Negative Negative 09/22/2023 2:19 PM REHABILITATION TEAM LEAD STRM Type & Screen Expiration 09/25/2023 23:59 09/22/2023 2:10 PM REHABILITATION TEAM LEAD STRM Testing Location Mercedes DEFAULT 09/22/2023 1:41 PM REHABILITATION TEAM LEAD STRM Blood (Blood, Venous) 09/22/2023 7:01 AM REHABILITATION TEAM LEAD 09/22/2023 1:41 PM REHABILITATION TEAM LEAD Laila Basurto P.A.-C. LAB BLOOD BAN K TEST ORDERABLES [facility] [address] [place] [address], [place] STRM [facility] [address] [place] [address] * (ABNORMAL) Glucose, POCT (09/21/2023 10:52 PM REHABILITATION TEAM LEAD) Glucose, POCT, B 161(H) 70 - 140 mg/dL 09/21/2023 10:57 PM REHABILITATION TEAM LEAD PCLX Site Capillary 09/21/2023 10:57 PM REHABILITATION TEAM LEAD PCLX Last Intake 2-3 hours 09/21/2023 10:57 PM REHABILITATION TEAM LEAD PCLX Blood 09/21/2023 10:5 2 PM REHABILITATION TEAM LEAD 09/21/2023 10:57 PM REHABILITATION TEAM LEAD Unknown Provider LAB POCT ORDERABLES- MANUAL Performing Organization Address City/[facility]/ZIP Co de Phone Number POC [facility] [address] [place] [address], [place] [facility] [facility] POC [address] [place] [address] * (ABNORMAL) Glucose, POCT (09/21/2023 7:07 PM REHABILITATION TEAM LEAD) Glucose, POCT, B 141(H) 70 - 140 mg/dL 09/21/2023 7:20 PM REHABILITATION TEAM LEAD PCLX Site Capillary 09/21/2023 7:20 PM REHABILITATION TEAM LEAD PCLX Last Intake <1 hour 09/21/2023 7:20 PM REHABILITATION TEAM LEAD PCLX Blood 09/21/2023 7:07 PM REHABILITATION TEAM LEAD 09/21/2023 7:20 PM REHABILITATION TEAM LEAD Unknown Provider LAB POCT ORDERABLES- MANUAL [facility]OC [facility] [address] [place] [address], [place] [facility] [facility] P[facility] [address] [place] [address] * (ABNORMAL) Glucose, POCT (09/21/2023 11:27 AM REHABILITATION TEAM LEAD) Glucose, POCT, B 190(H) 70 - 140 mg/dL 09/21/2023 11:29 AM REHABILITATION TEAM LEAD PCLX Site ARTLINE 09/21/2023 11:29 AM REHABILITATION TEAM LEAD PCLX Blood 09/21/2023 11:2 7 AM REHABILITATION TEAM LEAD 09/21/2023 11:29 AM REHABILITATION TEAM LEAD Unknown Provider LAB POCT ORDERABLES- MANUAL Performing Organization Address [facility] Co de Phone Number POC [facility] [address] [place] [address], [place] [facility] [facility] [address] [place] [address] * (ABNORMAL) Glucose, POCT (09/21/2023 8:50 AM REHABILITATION TEAM LEAD) Glucose, POCT, B 145(H) 70 - 140 mg/dL 09/21/2023 8:52 AM REHABILITATION TEAM LEAD PCLX Site ARTLINE 09/21/2023 8:52 AM REHABILITATION TEAM LEAD PCLX Blood 09/21/2023 8:50 AM REHABILITATION TEAM LEAD 09/21/2023 8:52 AM REHABILITATION TEAM LEAD Unknown Provider LAB POCT ORDERABLES- MANUAL Performing Organization Address [facility] Co de Phone Number POC [facility] [address] [place] [address], [place] [facility] [facility] [address] [place] [address] * (ABNORMAL) Prothrombin Time (PT) (09/21/2023 7:47 AM REHABILITATION TEAM LEAD) Prothrombin Time, P 13.8(H) 9.4 - 12.5 sec 09/21/2023 7:58 AM REHABILITATION TEAM LEAD STMA INR 1.3 0.9 - 1.1 09/21/2023 7:58 AM REHABILITATION TEAM LEAD STMA Comment: ----ADDITIONAL INFORMATION---- Standard intensity warfarin therapeutic range: 2.0 to 3.0 ?? High intensity warfarin therapeutic range: 2.5 to 3.5 Blood (Blood, Venous) 09/21/2023 7:47 AM REHABILITATION TEAM LEAD 09/21/2023 7:51 AM REHABILITATION TEAM LEAD Anette Hair APRN, C.N.P., PetraNKory LAB B LOOD ADD-ON Performing Organization Address [facility] Co de Phone Number [facility] [address] [place] [address] * Patient Status (09/21/2023 6:35 AM REHABILITATION TEAM LEAD) FIO2 0.21 0.21=AIR 09/21/2023 6:39 AM REHABILITATION TEAM LEAD STMA Spont. breaths/min 18 09/21/2023 6:39 AM REHABILITATION TEAM LEAD STMA Blood 09/21/2023 6:35 AM REHABILITATION TEAM LEAD 09/21/2023 6:39 AM REHABILITATION TEAM LEAD Bryce Wills M.D. LAB BLOOD NON ADD-ON Performing Organization Address [facility] Co de Phone Number [facility] [address] [place] [address] * (ABNORMAL) Blood Gas with Coox, Arterial (09/21/2023 6:35 AM REHABILITATION TEAM LEAD) pO2 67(L) 83 - 108 mm Hg 09/21/2023 6:41 AM REHABILITATION TEAM LEAD STMA pCO2 46 35 - 48 mm Hg 09/21/2023 6:41 AM REHABILITATION TEAM LEAD STMA pH 7.41 7.35 - 7.45 pH 09/21/2023 6:41 AM REHABILITATION TEAM LEAD STMA Base Excess 4(H) -2 - 3 mmol/L 09/21/2023 6:41 AM REHABILITATION TEAM LEAD STMA HCO3 29(H) 22 - 26 mmol/L 09/21/2023 6:41 AM REHABILITATION TEAM LEAD STMA Hemoglobin, Venous 8.2(L) 13.2 - 16.6 g/dL 09/21/2023 6:41 AM REHABILITATION TEAM LEAD STMA O2Hb 92.5(L) 94.0 - 98.0 % 09/21/2023 6:41 AM REHABILITATION TEAM LEAD STMA COHb 2.0 <3.0 % 09/21/2023 6:42 AM REHABILITATION TEAM LEAD STMA MetHb <1.0 <1.5 % 09/21/2023 6:41 AM REHABILITATION TEAM LEAD STMA CtO2 10.8(L) 18.0 - 21.0 vol % 09/21/2023 6:42 AM REHABILITATION TEAM LEAD STMA Arterial Sample Site Art Line 09/21/2023 6:41 AM REHABILITATION TEAM LEAD STMA Comment:Mina's test not don e. Blood (Blood, Arterial) 09/21/2023 6:35 AM REHABILITATION TEAM LEAD 09/21/2023 6:39 AM REHABILITATION TEAM LEAD Bryce Wills M.D. LAB BLOOD NON ADD-ON Performing Organization Address [facility]/ZIP Co de Phone Number [facility] [address] [place] [address], [place] STMA [facility] [address] [place] [address] * (ABNORMAL) Glucose, POCT (09/21/2023 6:31 AM REHABILITATION TEAM LEAD) Pathologist [facility] Glucose, POCT, B 164(H) 70 - 140 mg/dL 09/21/2023 6:32 AM REHABILITATION TEAM LEAD PCLX Site ARTLINE 09/21/2023 6:32 AM REHABILITATION TEAM LEAD PCLX Blood 09/21/2023 6:31 AM REHABILITATION TEAM LEAD 09/21/2023 6:32 AM REHABILITATION TEAM LEAD Unknown Provider LAB POCT ORDERABLES- MANUAL Performing Organization Address City/[facility]/ZIP Co de Phone Number POC [facility] [address] [place] [address], [place] [facility] [facility] [address] [place] [address] * (ABNORMAL) Basic Metabolic Panel (09/21/2023 5:11 AM REHABILITATION TEAM LEAD) Potassium, P 5.1 3.6 - 5.2 mmol/L 09/21/2023 5:45 AM REHABILITATION TEAM LEAD STMA Sodium, P 135 135 - 145 mmol/L 09/21/2023 5:45 AM REHABILITATION TEAM LEAD STMA Chloride, P 101 98 - 107 mmol/L 09/21/2023 5:45 AM REHABILITATION TEAM LEAD STMA Bicarbonate, P 27 22 - 29 mmol/L 09/21/2023 5:45 AM REHABILITATION TEAM LEAD STMA Anion Gap, P 7 7 - 15 09/21/2023 5:45 AM REHABILITATION TEAM LEAD STMA BUN (Blood Urea Nitrogen), P 33(H) 8 - 24 mg/dL 09/21/2023 5:45 AM REHABILITATION TEAM LEAD STMA Creatinine 2.39(H) 0.74 - 1.35 mg/dL 09/21/2023 5:45 AM REHABILITATION TEAM LEAD STMA Estimated GFR (eGFR) 28(L) >=60 mL/min/BSA 09/21/2023 5:45 AM REHABILITATION TEAM LEAD STMA Comment: Estimated GFR calculated using the 2020 CKD_EPI creatinine equation. Calcium, Total, P 8.9 8.8 - 10.2 mg/dL 09/21/2023 5:45 AM REHABILITATION TEAM LEAD STMA Glucose, P 166(H) 70 - 140 mg/dL 09/21/2023 5:45 AM REHABILITATION TEAM LEAD STMA Blood (Blood, Venous) 09/21/2023 5:11 AM REHABILITATION TEAM LEAD 09/21/2023 5:25 AM REHABILITATION TEAM LEAD Enmanuel Edward P.A.-C. LAB BLOOD ADD-ON [facility] [address] [place] [address], [facility] [address] [place] [address] * (ABNORMAL) Phosphorus Inorganic (09/21/2023 5:11 AM REHABILITATION TEAM LEAD) Phosphorus (Inorganic), S 5.4(H) 2.5 - 4.5 mg/dL 09/21/2023 6:03 AM REHABILITATION TEAM LEAD DTL Blood (Blood, Venous) 09/21/2023 5:11 AM REHABILITATION TEAM LEAD 09/21/2023 5:50 AM REHABILITATION TEAM LEAD Enmanuel Edwrad P.A.-C. LAB BLOOD ADD-ON [facility] [address] [place] [address], [place] [facility] [address] [place] [address] * (ABNORMAL) Magnesium (09/21/2023 5:11 AM REHABILITATION TEAM LEAD) [facility] Magnesium, S 2.4(H) 1.7 - 2.3 mg/dL 09/21/2023 6:03 AM REHABILITATION TEAM LEAD DTL Blood (Blood, Venous) 09/21/2023 5:11 AM REHABILITATION TEAM LEAD 09/21/2023 5:50 AM REHABILITATION TEAM LEAD Enmanuel Edward P.A.-C. LAB BLOOD ADD-ON [facility] [address] [place] [address], [facility] [address] [place] [address] * (ABNORMAL) CBC without Differential (09/21/2023 5:11 AM REHABILITATION TEAM LEAD) [facility] Hemoglobin 8.1(L) 13.2 - 16.6 g/dL 09/21/2023 6:04 AM REHABILITATION TEAM LEAD DTL Hematocrit 23.3(L) 38.3 - 48.6 % 09/21/2023 6:04 AM REHABILITATION TEAM LEAD DTL Erythrocytes 2.64(L) 4.35 - 5.65 x10(12)/L 09/21/2023 6:04 AM REHABILITATION TEAM LEAD DTL MCV 88.3 78.2 - 97.9 fL 09/21/2023 6:04 AM REHABILITATION TEAM LEAD DTL RBC Distrib Width 13.8 11.8 - 14.5 % 09/21/2023 6:04 AM REHABILITATION TEAM LEAD DTL Platelet Count 139 135 - 317 x10(9)/L 09/21/2023 6:04 AM REHABILITATION TEAM LEAD DTL Leukocytes 12.5(H) 3.4 - 9.6 x10(9)/L 09/21/2023 6:04 AM REHABILITATION TEAM LEAD DTL Blood (Blood, Venous) 09/21/2023 5:11 AM REHABILITATION TEAM LEAD 09/21/2023 5:40 AM REHABILITATION TEAM LEAD Jenny Jay, BKolby., B.A.O. LAB BLOOD ADD-ON [facility] [address] [place] [address], [place] DTL [facility] [address] [place] [address] * (ABNORMAL) Basic Metabolic Panel (09/21/2023 12:21 AM REHABILITATION TEAM LEAD) Pathologist [facility] Potassium, P 5.3(H) 3.6 - 5.2 mmol/L 09/21/2023 1:08 AM REHABILITATION TEAM LEAD DTL Sodium, P 135 135 - 145 mmol/L 09/21/2023 1:08 AM REHABILITATION TEAM LEAD DTL Chloride, P 102 98 - 107 mmol/L 09/21/2023 1:08 AM REHABILITATION TEAM LEAD DTL Bicarbonate, P 25 22 - 29 mmol/L 09/21/2023 1:08 AM REHABILITATION TEAM LEAD DTL Anion Gap, P 8 7 - 15 09/21/2023 1:08 AM REHABILITATION TEAM LEAD DTL BUN (Blood Urea Nitrogen), P 30(H) 8 - 24 mg/dL 09/21/2023 1:08 AM REHABILITATION TEAM LEAD DTL Creatinine 2.42(H) 0.74 - 1.35 mg/dL 09/21/2023 1:08 AM REHABILITATION TEAM LEAD DTL Estimated GFR (eGFR) 28(L) >=60 mL/min/BSA 09/21/2023 1:08 AM REHABILITATION TEAM LEAD DTL Comment: Estimated GFR calculated using the 2020 CKD_EPI creatinine equation. Calcium, Total, P 8.9 8.8 - 10.2 mg/dL 09/21/2023 1:08 AM REHABILITATION TEAM LEAD DTL Glucose, P 170(H) 70 - 140 mg/dL 09/21/2023 1:08 AM REHABILITATION TEAM LEAD DTL Blood (Blood, Venous) 09/21/2023 12:21 AM REHABILITATION TEAM LEAD 09/21/2023 12:54 AM REHABILITATION TEAM LEAD Enmanuel Edward P.A.-C. LAB BLOOD ADD-ON [facility] [address] [place] [address], [place] DTL [facility] [address] [place] [address] * (ABNORMAL) Glucose, POCT (09/20/2023 8:33 PM REHABILITATION TEAM LEAD) Glucose, POCT, B 196(H) 70 - 140 mg/dL 09/20/2023 8:39 PM REHABILITATION TEAM LEAD PCLX Blood 09/20/2023 8:33 PM REHABILITATION TEAM LEAD 09/20/2023 8:39 PM REHABILITATION TEAM LEAD Unknown Provider LAB POCT ORDERABLES- MANUAL [facility] [address] [place] [address], [place] PCLX [facility] [address] [place] [address] * Potassium (09/20/2023 8:33 PM REHABILITATION TEAM LEAD) Pathologist [facility] Potassium, P 5.0 3.6 - 5.2 mmol/L 09/20/2023 8:56 PM REHABILITATION TEAM LEAD STMA Blood (Blood, Venous) 09/20/2023 8:33 PM REHABILITATION TEAM LEAD 09/20/2023 8:38 PM REHABILITATION TEAM LEAD Yenifer Mercado P.A.-C. LAB BLOOD ADD -ON Performing Organization Address City/[facility]/ZIP Co de Phone Number [facility] [address] [place] [address], [place] STMA [facility] [address] [place] [address] * (ABNORMAL) Glucose, POCT (09/20/2023 4:31 PM REHABILITATION TEAM LEAD) Glucose, POCT, B 182(H) 70 - 140 mg/dL 09/20/2023 4:32 PM REHABILITATION TEAM LEAD PCLX Site ARTLINE 09/20/2023 4:32 PM REHABILITATION TEAM LEAD PCLX Blood 09/20/2023 4:31 PM REHABILITATION TEAM LEAD 09/20/2023 4:32 PM REHABILITATION TEAM LEAD Unknown Provider LAB POCT ORDERABLES- MANUAL POC [facility] [address] [place] [address], [place] [facility] [facility] POC [address] [place] [address] * (ABNORMAL) Basic Metabolic Panel (09/20/2023 4:27 PM REHABILITATION TEAM LEAD) Potassium, P 5.5(H) 3.6 - 5.2 mmol/L 09/20/2023 5:03 PM REHABILITATION TEAM LEAD STMA Sodium, P 136 135 - 145 mmol/L 09/20/2023 5:03 PM REHABILITATION TEAM LEAD STMA Chloride, P 102 98 - 107 mmol/L 09/20/2023 5:03 PM REHABILITATION TEAM LEAD STMA Bicarbonate, P 26 22 - 29 mmol/L 09/20/2023 5:03 PM REHABILITATION TEAM LEAD STMA Anion Gap, P 8 7 - 15 09/20/2023 5:03 PM REHABILITATION TEAM LEAD STMA BUN (Blood Urea Nitrogen), P 28(H) 8 - 24 mg/dL 09/20/2023 5:03 PM REHABILITATION TEAM LEAD STMA Creatinine 2.24(H) 0.74 - 1.35 mg/dL 09/20/2023 5:03 PM REHABILITATION TEAM LEAD STMA Estimated GFR (eGFR) 31(L) >=60 mL/min/BSA 09/20/2023 5:03 PM REHABILITATION TEAM LEAD STMA Comment: Estimated GFR calculated using the 2020 CKD_EPI creatinine equation. Calcium, Total, P 9.0 8.8 - 10.2 mg/dL 09/20/2023 5:03 PM REHABILITATION TEAM LEAD STMA Glucose, P 193(H) 70 - 140 mg/dL 09/20/2023 5:03 PM REHABILITATION TEAM LEAD STMA Blood (Blood, Venous) 09/20/2023 4:27 PM REHABILITATION TEAM LEAD 09/20/2023 4:36 PM REHABILITATION TEAM LEAD Yenifer Mercado P.A.-C. LAB BLOOD ADD -ON [facility] [address] [place] [address], [place] STMA [facility] [address] [place] [address] * (ABNORMAL) Glucose, POCT (09/20/2023 11:51 AM REHABILITATION TEAM LEAD) Pathologist [facility] Glucose, POCT, B 205(H) 70 - 140 mg/dL 09/20/2023 11:53 AM REHABILITATION TEAM LEAD PCLX Site ARTLINE 09/20/2023 11:53 AM REHABILITATION TEAM LEAD PCLX Last Intake 1-2 hours 09/20/2023 11:53 AM REHABILITATION TEAM LEAD PCLX Blood 09/20/2023 11:5 1 AM REHABILITATION TEAM LEAD 09/20/2023 11:53 AM REHABILITATION TEAM LEAD Unknown Provider LAB POCT ORDERABLES- MANUAL POC [facility] [address] [place] [address], [place] [facility] [facility] POC [address] [place] [address] * (ABNORMAL) Basic Metabolic Panel (09/20/2023 11:51 AM REHABILITATION TEAM LEAD) Pathologist [facility] Potassium, P 5.4(H) 3.6 - 5.2 mmol/L 09/20/2023 12:20 PM REHABILITATION TEAM LEAD STMA Sodium, P 137 135 - 145 mmol/L 09/20/2023 12:20 PM REHABILITATION TEAM LEAD STMA Chloride, P 103 98 - 107 mmol/L 09/20/2023 12:20 PM REHABILITATION TEAM LEAD STMA Bicarbonate, P 23 22 - 29 mmol/L 09/20/2023 12:20 PM REHABILITATION TEAM LEAD STMA Anion Gap, P 11 7 - 15 09/20/2023 12:20 PM REHABILITATION TEAM LEAD STMA BUN (Blood Urea Nitrogen), P 27(H) 8 - 24 mg/dL 09/20/2023 12:20 PM REHABILITATION TEAM LEAD STMA Creatinine 2.12(H) 0.74 - 1.35 mg/dL 09/20/2023 12:20 PM REHABILITATION TEAM LEAD STMA Estimated GFR (eGFR) 33(L) >=60 mL/min/BSA 09/20/2023 12:20 PM REHABILITATION TEAM LEAD STMA Comment: Estimated GFR calculated using the 2020 CKD_EPI creatinine equation. Calcium, Total, P 9.2 8.8 - 10.2 mg/dL 09/20/2023 12:20 PM REHABILITATION TEAM LEAD STMA Glucose, P 230(H) 70 - 140 mg/dL 09/20/2023 12:20 PM REHABILITATION TEAM LEAD [facility] Blood (Blood, Venous) 09/20/2023 11:51 AM REHABILITATION TEAM LEAD 09/20/2023 12:00 PM REHABILITATION TEAM LEAD Lobito Melgar APRN, C.N.P., M.S.N. L AB BLOOD ADD-ON Performing Organization Address City/[facility] Co de Phone Number [facility] [address] [place] [address], [facility] [address] [place] [address] * (ABNORMAL) Glucose, POCT (09/20/2023 6:30 AM REHABILITATION TEAM LEAD) Pathologist [facility] Glucose, POCT, B 169(H) 70 - 140 mg/dL 09/20/2023 6:32 AM REHABILITATION TEAM LEAD PCLX Blood 09/20/2023 6:30 AM REHABILITATION TEAM LEAD 09/20/2023 6:33 AM REHABILITATION TEAM LEAD Unknown Provider LAB POCT ORDERABLES- MANUAL Performing Organization Address [facility] Co de Phone Number [facility] [address] [place] [address], [facility] [address] [place] [address] * Lactate, Whole Blood (09/20/2023 4:11 AM REHABILITATION TEAM LEAD) [facility] Lactate, B 1.5 0.5 - 2.2 mmol/L 09/20/2023 4:18 AM REHABILITATION TEAM LEAD [facility] Blood (Blood, Arterial) 09/20/2023 4:11 AM REHABILITATION TEAM LEAD 09/20/2023 4:15 AM REHABILITATION TEAM LEAD Lobito Melgar APRN, C.N.P., M.S.N. L AB BLOOD NON ADD-ON Performing Organization Address City/[facility] Co de Phone Number [facility] [address] [place], [place] [id number] [place] [address] [address] [place] [address] * Patient Status (09/20/2023 4:11 AM REHABILITATION TEAM LEAD) O2 Flow 2.0 L/min 09/20/2023 4:15 AM REHABILITATION TEAM LEAD [facility] Device NC 09/20/2023 4:15 AM REHABILITATION TEAM LEAD [facility] Spont. breaths/min 14 09/20/2023 4:15 AM REHABILITATION TEAM LEAD [facility] Blood 09/20/2023 4:11 AM REHABILITATION TEAM LEAD 09/20/2023 4:15 AM REHABILITATION TEAM LEAD Jenny Jay, RavenCh., B.A.O. LAB BLOOD NON ADD-ON Performing Organization Address City/[facility]/ZIP Co de Phone Number [facility] [address] [facility] [address] [place] [address] * (ABNORMAL) Blood Gas without Coox, Arterial (09/20/2023 4:11 AM REHABILITATION TEAM LEAD) pO2 79(L) 83 - 108 mm Hg 09/20/2023 4:18 AM REHABILITATION TEAM LEAD [facility] pCO2 43 35 - 48 mm Hg 09/20/2023 4:18 AM REHABILITATION TEAM LEAD [facility] pH 7.37 7.35 - 7.45 pH 09/20/2023 4:18 AM REHABILITATION TEAM LEAD [facility] Base Excess 0 -2 - 3 mmol/L 09/20/2023 4:18 AM REHABILITATION TEAM LEAD [facility] HCO3 25 22 - 26 mmol/L 09/20/2023 4:18 AM REHABILITATION TEAM LEAD [facility] Arterial Sample Site Art Line 09/20/2023 4:18 AM REHABILITATION TEAM LEAD [facility] Comment:Mina's test not don e. Blood (Blood, Arterial) 09/20/2023 4:11 AM REHABILITATION TEAM LEAD 09/20/2023 4:15 AM REHABILITATION TEAM LEAD Jenny Jay, Nicky.Ch., B.A.O. LAB BLOOD NON ADD-ON Performing Organization Address City/[facility]/ZIP Co de Phone Number [facility] [address] [facility] [facility] [address] [place] [address] * (ABNORMAL) CBC without Differential (09/20/2023 4:09 AM REHABILITATION TEAM LEAD) Hemoglobin 9.1(L) 13.2 - 16.6 g/dL 09/20/2023 4:51 AM REHABILITATION TEAM LEAD DTL Hematocrit 25.8(L) 38.3 - 48.6 % 09/20/2023 4:51 AM REHABILITATION TEAM LEAD DTL Erythrocytes 2.99(L) 4.35 - 5.65 x10(12)/L 09/20/2023 4:51 AM REHABILITATION TEAM LEAD DTL MCV 86.3 78.2 - 97.9 fL 09/20/2023 4:51 AM REHABILITATION TEAM LEAD DTL RBC Distrib Width 13.6 11.8 - 14.5 % 09/20/2023 4:51 AM REHABILITATION TEAM LEAD DTL Platelet Count 179 135 - 317 x10(9)/L 09/20/2023 4:51 AM REHABILITATION TEAM LEAD DTL Leukocytes 11.3(H) 3.4 - 9.6 x10(9)/L 09/20/2023 4:51 AM REHABILITATION TEAM LEAD DTL Blood (Blood, Venous) 09/20/2023 4:09 AM REHABILITATION TEAM LEAD 09/20/2023 4:42 AM REHABILITATION TEAM LEAD Jenny Jay, B.Ch., B.A.O. [place] [address], [place] [address] * (ABNORMAL) Basic Metabolic Panel (09/20/2023 4:09 AM REHABILITATION TEAM LEAD) Pathologist [facility] Potassium, S 5.2 3.6 - 5.2 mmol/L 09/20/2023 5:12 AM REHABILITATION TEAM LEAD DTL Sodium, S 142 135 - 145 mmol/L 09/20/2023 5:12 AM REHABILITATION TEAM LEAD DTL Chloride, S 107 98 - 107 mmol/L 09/20/2023 5:12 AM REHABILITATION TEAM LEAD DTL Bicarbonate, S 23 22 - 29 mmol/L 09/20/2023 5:12 AM REHABILITATION TEAM LEAD DTL Anion Gap 12 7 - 15 09/20/2023 5:12 AM REHABILITATION TEAM LEAD DTL BUN (Blood Urea Nitrogen), S 23 8 - 24 mg/dL 09/20/2023 5:12 AM REHABILITATION TEAM LEAD DTL Creatinine 1.88(H) 0.74 - 1.35 mg/dL 09/20/2023 5:12 AM REHABILITATION TEAM LEAD DTL Estimated GFR (eGFR) 38(L) >=60 mL/min/BSA 09/20/2023 5:12 AM REHABILITATION TEAM LEAD DTL Comment: Estimated GFR calculated using the 2020 CKD_EPI creatinine equation. Calcium, Total, S 9.6 8.8 - 10.2 mg/dL 09/20/2023 5:12 AM REHABILITATION TEAM LEAD DTL Glucose, S 162(H) 70 - 140 mg/dL 09/20/2023 5:12 AM REHABILITATION TEAM LEAD DTL Blood (Blood, Venous) 09/20/2023 4:09 AM REHABILITATION TEAM LEAD 09/20/2023 4:57 AM REHABILITATION TEAM LEAD Jenny Jay, Nicky.Ch., B.A.O. LAB BLOOD ADD-ON Performing Organization Address City/[facility]/ZIP Co de Phone Number [facility] [address] [place] [address] * APTT (Activated Partial Thromboplastin Time) (09/20/2023 4:09 AM REHABILITATION TEAM LEAD) Activated Partial Thrombopl Time, P 26 25 - 37 sec 09/20/2023 5:19 AM REHABILITATION TEAM LEAD DTL Blood (Blood, Venous) 09/20/2023 4:09 AM REHABILITATION TEAM LEAD 09/20/2023 4:43 AM REHABILITATION TEAM LEAD Nicky Black.Ch., B.A.O. LAB BLOOD ADD-ON Performing Organization Address City/[facility]/ZIP Co de Phone Number [facility] [address] [place] [address] * Prothrombin Time (PT) (09/20/2023 4:09 AM REHABILITATION TEAM LEAD) Prothrombin Time, P 12.2 9.4 - 12.5 sec 09/20/2023 5:19 AM REHABILITATION TEAM LEAD DTL INR 1.1 0.9 - 1.1 09/20/2023 5:19 AM REHABILITATION TEAM LEAD DTL Comment: ----ADDITIONAL INFORMATION---- Standard intensity warfarin therapeutic range: 2.0 to 3.0 ?? High intensity warfarin therapeutic range: 2.5 to 3.5 Blood (Blood, Venous) 09/20/2023 4:09 AM REHABILITATION TEAM LEAD 09/20/2023 4:43 AM REHABILITATION TEAM LEAD Jenny Jay, Nicky.Ch., B.A.O. LAB BLOOD ADD-ON Performing Organization Address City/[facility]/ZIP Co de Phone Number [facility] [address] [place] [address] * (ABNORMAL) Magnesium (09/20/2023 4:09 AM REHABILITATION TEAM LEAD) Magnesium, S 2.7(H) 1.7 - 2.3 mg/dL 09/20/2023 5:12 AM REHABILITATION TEAM LEAD DTL Blood (Blood, Venous) 09/20/2023 4:09 AM REHABILITATION TEAM LEAD 09/20/2023 4:57 AM REHABILITATION TEAM LEAD Nicky Black.Ch., B.A.O. LAB BLOOD ADD-ON Performing Organization Address City/[facility]/ZIP Co de Phone Number [facility] [address] [place] [address] * DX Chest Portable with AM Rounds 1 View (09/20/2023 3:33 AM REHABILITATION TEAM LEAD) Anatomical Region Laterality Modality Chest, Thoracic RST LOS, Tho racic ARZ LOS, Thoracic FLA LOS N/A Digital Radiography 09/20/2023 5:18 AM REHABILITATION TEAM LEAD Impressions 09/20/2023 5:20 AM REHABILITATION TEAM LEAD Compared to 09/19/2023. Extubation. Removal of right IJ SGC, sheath remains. Slightly decreased lung volumes. No other significant change. Pulmonary vascular congestion. Bibasilar atelectasis. No definite pneumothorax. Trace pneumomediastinum. Enlarged cardiac silhouette. Retrocardiac atelectasis/consolidation. Azygous fissure. Sternotomy. Mediastinal clips and drains. Loop recorder. Narrative 09/20/2023 5:20 AM REHABILITATION TEAM LEAD EXAM: ??DX CHEST PORTABLE WITH AM ROUNDS [...] Risk Score, Random, Urine (09/20/2023 3:24 AM REHABILITATION TEAM LEAD) TIMP2/IGFBP7 MANJEET Risk Score, U 0.45(H) <0.30 (ng/mL)(2) /1000 09/20/2023 4:12 AM REHABILITATION TEAM LEAD STMA Comment: ----ADDITIONAL INFORMATION---- <0.30= <0.30 is considered low risk for acute kidney injury. 0.30-2.00= 0.30-2.00 indicates increased risk for acute kidney injury. >2.00= >2.00 indicates high risk for acute kidney injury. Urine (Urine, Midstream) 09/20/2023 3:24 AM REHABILITATION TEAM LEAD 09/20/2023 3:24 AM REHABILITATION TEAM LEAD Jenny Jay, Lucille, B.A.O. LAB URINE ORDERABLES [facility] [address] [place] [address], [place] [facility] [address] [place] [address] * Glucose, POCT (09/20/2023 1:17 AM REHABILITATION TEAM LEAD) Glucose, POCT, B 136 70 - 140 mg/dL 09/20/2023 1:19 AM REHABILITATION TEAM LEAD PCLX Site ARTLINE 09/20/2023 1:19 AM REHABILITATION TEAM LEAD PCLX Blood 09/20/2023 1:17 AM REHABILITATION TEAM LEAD 09/20/2023 1:19 AM REHABILITATION TEAM LEAD Unknown Provider LAB POCT ORDERABLES- MANUAL Performing Organization Address City/[facility]/ZIP Co de Phone Number POC [facility] [address] [place] [address], [place] [facility] [address] [place] [address] * Glucose, POCT (09/19/2023 11:58 PM REHABILITATION TEAM LEAD) Glucose, POCT, B 133 70 - 140 mg/dL 09/19/2023 11:59 PM REHABILITATION TEAM LEAD PCLX Site ARTLINE 09/19/2023 11:59 PM REHABILITATION TEAM LEAD PCLX Blood 09/19/2023 11:5 8 PM REHABILITATION TEAM LEAD 09/19/2023 11:59 PM REHABILITATION TEAM LEAD Unknown Provider LAB POCT ORDERABLES- MANUAL [facility]OC [facility] [address] [place] [address], [place] [facility] [facility] [address] [place] [address] * (ABNORMAL) Glucose, POCT (09/19/2023 11:20 PM REHABILITATION TEAM LEAD) Glucose, POCT, B 148(H) 70 - 140 mg/dL 09/19/2023 11:22 PM REHABILITATION TEAM LEAD PCLX Site ARTLINE 09/19/2023 11:22 PM REHABILITATION TEAM LEAD PCLX Blood 09/19/2023 11:2 0 PM REHABILITATION TEAM LEAD 09/19/2023 11:22 PM REHABILITATION TEAM LEAD Unknown Provider LAB POCT ORDERABLES- MANUAL POC [facility] [address] [place] [address], [place] PCLX [facility] [address] [place] [address] * (ABNORMAL) Lactate, Whole Blood (09/19/2023 10:58 PM REHABILITATION TEAM LEAD) Pathologist [facility] Lactate, B 2.6(H) 0.5 - 2.2 mmol/L 09/19/2023 11:05 PM REHABILITATION TEAM LEAD STMA Blood (Blood, Arterial) 09/19/2023 10:58 PM REHABILITATION TEAM LEAD 09/19/2023 11:04 PM REHABILITATION TEAM LEAD Lobito Melgar APRN C.N.P., M.S.N. L AB BLOOD NON ADD-ON Performing Organization Address City/[facility]/ZIP Co de Phone Number [facility] [address] [place] [address], [facility] [address] [place] [address] * (ABNORMAL) Glucose, POCT (09/19/2023 10:27 PM REHABILITATION TEAM LEAD) Glucose, POCT, B 160(H) 70 - 140 mg/dL 09/19/2023 10:30 PM REHABILITATION TEAM LEAD PCLX Site ARTLINE 09/19/2023 10:30 PM REHABILITATION TEAM LEAD PCLX Blood 09/19/2023 10:2 7 PM REHABILITATION TEAM LEAD 09/19/2023 10:30 PM REHABILITATION TEAM LEAD Unknown Provider LAB POCT ORDERABLES- MANUAL POC [facility] [address] [place] [address], [place] [facility] [facility] [address] [place] [address] * (ABNORMAL) Glucose, POCT (09/19/2023 9:24 PM REHABILITATION TEAM LEAD) Glucose, POCT, B 194(H) 70 - 140 mg/dL 09/19/2023 9:25 PM REHABILITATION TEAM LEAD PCLX Site ARTLINE 09/19/2023 9:25 PM REHABILITATION TEAM LEAD PCLX Blood 09/19/2023 9:24 PM REHABILITATION TEAM LEAD 09/19/2023 9:25 PM REHABILITATION TEAM LEAD Unknown Provider LAB POCT ORDERABLES- MANUAL Performing Organization Address City/[facility] Co de Phone Number [facility] [address] [place] [address], [place] [facility] [facility] [address] [place] [address] * ECG 12 Lead (09/19/2023 8:14 PM REHABILITATION TEAM LEAD) Pathologist [facility] Ventricular Rate ECG/Min 93 BPM MUSE ND Interval 134 ms MUSE QRSD Interval 84 ms MUSE QT Interval 374 ms MUSE QTC Interval 465 ms MUSE P [place] 74 degrees MUSE R [place] 14 degrees MUSE T Wave [place] 58 degrees MUSE 09/19/2023 8:14 PM REHABILITATION TEAM LEAD 09/19/2023 8:36 PM REHABILITATION TEAM LEAD Impressions MUSE - 09/19/2023 8:36 PM REHABILITATION TEAM LEAD Normal sinus rhythm Nonspecific ST and T [...] B.Ch., B.A.O. ECG ORDERABLES Performing Organization Address City/[facility]/ZIP Co de Phone Number MUSE NA * (ABNORMAL) Glucose, POCT (09/19/2023 7:58 PM REHABILITATION TEAM LEAD) Glucose, POCT, B 226(H) 70 - 140 mg/dL 09/19/2023 8:00 PM REHABILITATION TEAM LEAD PCLX Site ARTLINE 09/19/2023 8:00 PM REHABILITATION TEAM LEAD PCLX Blood 09/19/2023 7:58 PM REHABILITATION TEAM LEAD 09/19/2023 8:00 PM REHABILITATION TEAM LEAD Unknown Provider LAB POCT ORDERABLES- MANUAL Performing Organization Address [facility] Co de Phone Number POC [facility] [address] [place] [address], [place] [facility] [facility] [address] [place] [address] * (ABNORMAL) Lactate, Whole Blood (09/19/2023 7:43 PM REHABILITATION TEAM LEAD) Pathologist [facility] Lactate, B 6.6(H) 0.5 - 2.2 mmol/L 09/19/2023 7:50 PM REHABILITATION TEAM LEAD STMA Blood (Blood, Arterial) 09/19/2023 7:43 PM REHABILITATION TEAM LEAD 09/19/2023 7:49 PM REHABILITATION TEAM LEAD Lobito Melgar APRN, C.N.P., M.S.N. L AB BLOOD NON ADD-ON Performing Organization Address City/[facility] Co de Phone Number [facility] [address] [place] [address], [place] [facility] [address] [place] [address] * Patient Status (09/19/2023 7:43 PM REHABILITATION TEAM LEAD) Pathologist [facility] O2 Flow 5.0L L/min 09/19/2023 7:49 PM REHABILITATION TEAM LEAD STMA Device NC 09/19/2023 7:49 PM REHABILITATION TEAM LEAD STMA Spont. breaths/min 21 09/19/2023 7:49 PM REHABILITATION TEAM LEAD STMA Blood 09/19/2023 7:43 PM REHABILITATION TEAM LEAD 09/19/2023 7:49 PM REHABILITATION TEAM LEAD Susumerle Fajardo LAB BLOOD NON ADD-ON Performing Organization Address City/[facility]/ZIP Co de Phone Number [facility] [address] [place], [place] [address] [place] [address] [address] [place] [address] * (ABNORMAL) Lactate (09/19/2023 7:43 PM REHABILITATION TEAM LEAD) Pathologist [facility] Lactate, P 7.0(H) 0.5 - 2.2 mmol/L 09/19/2023 8:04 PM REHABILITATION TEAM LEAD STMA Blood (Blood, Venous) 09/19/2023 7:43 PM REHABILITATION TEAM LEAD 09/19/2023 7:49 PM REHABILITATION TEAM LEAD Susu R Tana LAB BLOOD NON ADD-ON Performing Organization Address [facility] Co de Phone Number [facility] [address] [place], [place] [address] [place] [address] [address] [place] [address] * (ABNORMAL) Blood Gas with Coox, Arterial (09/19/2023 7:43 PM REHABILITATION TEAM LEAD) Pathologist [facility] pO2 157(H) 83 - 108 mm Hg 09/19/2023 7:50 PM REHABILITATION TEAM LEAD STMA pCO2 42 35 - 48 mm Hg 09/19/2023 7:50 PM REHABILITATION TEAM LEAD STMA pH 7.25(L) 7.35 - 7.45 pH 09/19/2023 7:50 PM REHABILITATION TEAM LEAD STMA Base Excess -9(L) -2 - 3 mmol/L 09/19/2023 7:50 PM REHABILITATION TEAM LEAD STMA HCO3 19(L) 22 - 26 mmol/L 09/19/2023 7:50 PM REHABILITATION TEAM LEAD STMA Hemoglobin, Venous 10.1(L) 13.2 - 16.6 g/dL 09/19/2023 7:50 PM REHABILITATION TEAM LEAD STMA O2Hb 97.3 94.0 - 98.0 % 09/19/2023 7:50 PM REHABILITATION TEAM LEAD STMA COHb 2.0 <3.0 % 09/19/2023 7:50 PM REHABILITATION TEAM LEAD STMA MetHb 1.0 <1.5 % 09/19/2023 7:50 PM REHABILITATION TEAM LEAD STMA CtO2 14.1(L) 18.0 - 21.0 vol % 09/19/2023 7:50 PM REHABILITATION TEAM LEAD STMA Arterial Sample Site Art Line 09/19/2023 7:50 PM REHABILITATION TEAM LEAD STMA Comment:Mina's test not don e. Blood (Blood, Arterial) 09/19/2023 7:43 PM REHABILITATION TEAM LEAD 09/19/2023 7:49 PM REHABILITATION TEAM LEAD Susu Fajardo LAB BLOOD NON ADD-ON [facility] [address] [place] [address], [facility] [address] [place] [address] * (ABNORMAL) Glucose, POCT (09/19/2023 6:57 PM REHABILITATION TEAM LEAD) Glucose, POCT, B 224(H) 70 - 140 mg/dL 09/19/2023 7:00 PM REHABILITATION TEAM LEAD PCLX Site ARTLINE 09/19/2023 7:00 PM REHABILITATION TEAM LEAD PCLX Blood 09/19/2023 6:57 PM REHABILITATION TEAM LEAD 09/19/2023 7:00 PM REHABILITATION TEAM LEAD Unknown Provider LAB POCT ORDERABLES- MANUAL POC [facility] [address] [place] [address], [place] [facility] [facility] [address] [place] [address] * (ABNORMAL) Glucose, POCT (09/19/2023 6:23 PM REHABILITATION TEAM LEAD) Glucose, POCT, B 217(H) 70 - 140 mg/dL 09/19/2023 6:24 PM REHABILITATION TEAM LEAD PCLX Site ARTLINE 09/19/2023 6:24 PM REHABILITATION TEAM LEAD PCLX Blood 09/19/2023 6:23 PM REHABILITATION TEAM LEAD 09/19/2023 6:25 PM REHABILITATION TEAM LEAD Unknown Provider LAB POCT ORDERABLES- MANUAL POC [facility] [address] [place] [address], [place] PCLX [facility] [address] [place] [address] * DX Chest Portable 1 View (09/19/2023 5:45 PM REHABILITATION TEAM LEAD) Anatomical Region Laterality Modality Chest, Thoracic RST LOS, Tho racic ARZ LOS, Thoracic FLA LOS N/A Digital Radiography 09/19/2023 7:33 PM REHABILITATION TEAM LEAD Impressions 09/19/2023 8:26 PM REHABILITATION TEAM LEAD Interval retraction of the endotracheal tube, with tip now in the mid thoracic trachea. Otherwise no significant changes since 2:23 PM. Right IJ [place]-Sep[place] catheter with tip in the main pulmonary artery. Sternotomy wires and mediastinal surgical clips. Aortic valve replacement. Mediastinal drains. Mild bilateral interstitial thickening and perihilar opacities. No definite pleural effusion. Aortic calcifications. Narrative 09/19/2023 8:26 PM REHABILITATION TEAM LEAD EXAM: ??DX CHEST PORTABLE 1 VIEW Procedure [...] No definitepleural effusion. Aortic calcifications. Jenny Jay, B.Betty., B.A.O. IMG DIAGNOSTIC IMAGING PROCEDURES * Transfuse Platelets : (09/19/2023 5:19 PM REHABILITATION TEAM LEAD) Radha Iqbal M.D. BLOOD TRANSFUSION OR DERABLES * Patient Status (09/19/2023 5:19 PM REHABILITATION TEAM LEAD) FIO2 0.50 0.21=AIR 09/19/2023 5:22 PM REHABILITATION TEAM LEAD STMA Device Vent 09/19/2023 5:22 PM REHABILITATION TEAM LEAD STMA Spont. breaths/min 21 09/19/2023 5:22 PM REHABILITATION TEAM LEAD STMA Blood 09/19/2023 5:19 PM REHABILITATION TEAM LEAD 09/19/2023 5:22 PM REHABILITATION TEAM LEAD Jenny Jay, Lucille, B.A.O. LAB BLOOD NON ADD-ON Performing Organization Address City/[facility] Co de Phone Number [facility] [address] [facility] [address] [place] [address] * Fibrinogen (09/19/2023 5:19 PM REHABILITATION TEAM LEAD) Fibrinogen, P 269 200 - 393 mg/dL 09/19/2023 5:30 PM REHABILITATION TEAM LEAD STMA Blood (Blood, Venous) 09/19/2023 5:19 PM REHABILITATION TEAM LEAD 09/19/2023 5:22 PM REHABILITATION TEAM LEAD Jenny Jay, RavenCh., B.A.O. LAB BLOOD ADD-ON Performing Organization Address [facility] Co de Phone Number [facility] [address] [place] [address], [facility] [address] [place] [address] * Prothrombin Time (PT) (09/19/2023 5:19 PM REHABILITATION TEAM LEAD) Prothrombin Time, P 12.4 9.4 - 12.5 sec 09/19/2023 5:30 PM REHABILITATION TEAM LEAD STMA INR 1.1 0.9 - 1.1 09/19/2023 5:30 PM REHABILITATION TEAM LEAD STMA Comment: ----ADDITIONAL INFORMATION---- Standard intensity warfarin therapeutic range: 2.0 to 3.0 ?? High intensity warfarin therapeutic range: 2.5 to 3.5 Blood (Blood, Venous) 09/19/2023 5:19 PM REHABILITATION TEAM LEAD 09/19/2023 5:22 PM REHABILITATION TEAM LEAD Jenny Jay B.Ch., B.A.O. LAB BLOOD ADD-ON Performing Organization Address [facility] Co de Phone Number [facility] [address] [place] [address], [facility] [address] [place] [address] * APTT (Activated Partial Thromboplastin Time) (09/19/2023 5:19 PM REHABILITATION TEAM LEAD) [facility] Activated Partial Thrombopl Time, P 31 25 - 37 sec 09/19/2023 5:32 PM REHABILITATION TEAM LEAD STMA Blood (Blood, Venous) 09/19/2023 5:19 PM REHABILITATION TEAM LEAD 09/19/2023 5:22 PM REHABILITATION TEAM LEAD Jenny Jay B.Ch., B.A.O. LAB BLOOD ADD-ON Performing Organization Address [facility] de Phone Number [facility] [address] [place] [address] * (ABNORMAL) CBC without Differential (09/19/2023 5:19 PM REHABILITATION TEAM LEAD) [facility] Hemoglobin 9.5(L) 13.2 - 16.6 g/dL 09/19/2023 5:24 PM REHABILITATION TEAM LEAD STMA Hematocrit 27.5(L) 38.3 - 48.6 % 09/19/2023 5:24 PM REHABILITATION TEAM LEAD STMA Erythrocytes 3.14(L) 4.35 - 5.65 x10(12)/L 09/19/2023 5:24 PM REHABILITATION TEAM LEAD STMA MCV 87.6 78.2 - 97.9 fL 09/19/2023 5:24 PM REHABILITATION TEAM LEAD STMA RBC Distrib Width 13.3 11.8 - 14.5 % 09/19/2023 5:24 PM REHABILITATION TEAM LEAD STMA Platelet Count 163 135 - 317 x10(9)/L 09/19/2023 5:24 PM REHABILITATION TEAM LEAD STMA Leukocytes 13.3(H) 3.4 - 9.6 x10(9)/L 09/19/2023 5:24 PM REHABILITATION TEAM LEAD STMA Blood (Blood, Venous) 09/19/2023 5:19 PM REHABILITATION TEAM LEAD 09/19/2023 5:22 PM REHABILITATION TEAM LEAD Jenny Jay, RavenCh., B.A.O. LAB BLOOD ADD-ON Performing Organization Address City/[facility] Co de Phone Number [facility] 200 [place], [place] [address] [place] [address] [address] [place] [address] * (ABNORMAL) Lactate, Whole Blood (09/19/2023 5:19 PM REHABILITATION TEAM LEAD) Lactate, B 2.9(H) 0.5 - 2.2 mmol/L 09/19/2023 5:27 PM REHABILITATION TEAM LEAD STMA Blood (Blood, Arterial) 09/19/2023 5:19 PM REHABILITATION TEAM LEAD 09/19/2023 5:22 PM REHABILITATION TEAM LEAD Jenny Jay, RavenCh., B.A.O. LAB BLOOD NON ADD-ON Performing Organization Address [facility] de Phone Number [facility] [address] [place] [address], [facility] [address] [place] [address] * (ABNORMAL) Blood Gas with Coox, Arterial (09/19/2023 5:19 PM REHABILITATION TEAM LEAD) pO2 192(H) 83 - 108 mm Hg 09/19/2023 5:27 PM REHABILITATION TEAM LEAD STMA pCO2 36 35 - 48 mm Hg 09/19/2023 5:27 PM REHABILITATION TEAM LEAD STMA pH 7.37 7.35 - 7.45 pH 09/19/2023 5:27 PM REHABILITATION TEAM LEAD STMA Base Excess -4(L) -2 - 3 mmol/L 09/19/2023 5:27 PM REHABILITATION TEAM LEAD STMA HCO3 20(L) 22 - 26 mmol/L 09/19/2023 5:27 PM REHABILITATION TEAM LEAD STMA Hemoglobin, Venous 9.9(L) 13.2 - 16.6 g/dL 09/19/2023 5:27 PM REHABILITATION TEAM LEAD STMA O2Hb 95.6 94.0 - 98.0 % 09/19/2023 5:27 PM REHABILITATION TEAM LEAD STMA COHb 1.1 <3.0 % 09/19/2023 5:27 PM REHABILITATION TEAM LEAD STMA MetHb 2.2(H) <1.5 % 09/19/2023 5:27 PM REHABILITATION TEAM LEAD STMA CtO2 13.7(L) 18.0 - 21.0 vol % 09/19/2023 5:27 PM REHABILITATION TEAM LEAD STMA Arterial Sample Site Art Line 09/19/2023 5:27 PM REHABILITATION TEAM LEAD STMA Comment:Mina's test not don e. Blood (Blood, Arterial) 09/19/2023 5:19 PM REHABILITATION TEAM LEAD 09/19/2023 5:22 PM REHABILITATION TEAM LEAD Jenny Jay, B.Ch., B.A.O. LAB BLOOD NON ADD-ON [facility] [address] [place] [address], [facility] [address] [place] [address] * (ABNORMAL) Basic Metabolic Panel (09/19/2023 5:19 PM REHABILITATION TEAM LEAD) Potassium, P 4.6 3.6 - 5.2 mmol/L 09/19/2023 5:38 PM REHABILITATION TEAM LEAD STMA Sodium, P 140 135 - 145 mmol/L 09/19/2023 5:38 PM REHABILITATION TEAM LEAD STMA Chloride, P 107 98 - 107 mmol/L 09/19/2023 5:38 PM REHABILITATION TEAM LEAD STMA Bicarbonate, P 20(L) 22 - 29 mmol/L 09/19/2023 5:38 PM REHABILITATION TEAM LEAD STMA Anion Gap, P 13 7 - 15 09/19/2023 5:38 PM REHABILITATION TEAM LEAD STMA BUN (Blood Urea Nitrogen), P 19 8 - 24 mg/dL 09/19/2023 5:38 PM REHABILITATION TEAM LEAD STMA Creatinine 1.39(H) 0.74 - 1.35 mg/dL 09/19/2023 5:38 PM REHABILITATION TEAM LEAD STMA Estimated GFR (eGFR) 54(L) >=60 mL/min/BSA 09/19/2023 5:38 PM REHABILITATION TEAM LEAD [facility]MA Comment: Estimated GFR calculated using the 2020 CKD_EPI creatinine equation. Calcium, Total, P 10.7(H) 8.8 - 10.2 mg/dL 09/19/2023 5:38 PM REHABILITATION TEAM LEAD STMA Glucose, P 201(H) 70 - 140 mg/dL 09/19/2023 5:38 PM REHABILITATION TEAM LEAD STMA Blood (Blood, Venous) 09/19/2023 5:19 PM REHABILITATION TEAM LEAD 09/19/2023 5:22 PM REHABILITATION TEAM LEAD Jenny Jay, B.Ch., B.A.O. LAB BLOOD ADD-ON [facility] [address] [place] [address], [facility] [address] [place] [address] * (ABNORMAL) Cystatin C with Estimated GFR (09/19/2023 5:19 PM REHABILITATION TEAM LEAD) Pathologist [facility] eGFR by Cystatin C 59(L) >60 mL/min/BSA 09/19/2023 8:00 PM REHABILITATION TEAM LEAD DTL Comment: Estimated GFR calculated using the [...] 0.67 - 1.21 mg/L 09/19/2023 8:00 PM REHABILITATION TEAM LEAD DTL Blood (Blood, Arterial Line) 09/19/2023 5:19 PM REHABILITATION TEAM LEAD 09/19/2023 5:53 PM REHABILITATION TEAM LEAD Zoraida Salmeron M.D., Ph.D. LAB BLOOD AD D-ON Performing Organization Address City/[facility]/ZIP Co de Phone Number [facility] [address] [place] [address], [facility] DTL [facility] [address] [place] [address] * (ABNORMAL) Platelet Count (09/19/2023 4:20 PM REHABILITATION TEAM LEAD) Platelet Count 94(L) 135 - 317 x10(9)/L 09/19/2023 4:27 PM REHABILITATION TEAM LEAD [facility] Blood (Blood, Arterial Line) 09/19/2023 4:20 PM REHABILITATION TEAM LEAD 09/19/2023 4:20 PM REHABILITATION TEAM LEAD Rowena Antonio M.D. LAB BLOOD ADD-O N Performing Organization Address [facility] Co de Phone Number [facility] [address] [place] [address], [facility] [address] [place] [address] * Prothrombin Time (PT) (09/19/2023 4:20 PM REHABILITATION TEAM LEAD) Prothrombin Time, P 12.3 9.4 - 12.5 sec 09/19/2023 4:32 PM REHABILITATION TEAM LEAD [facility] INR 1.1 0.9 - 1.1 09/19/2023 4:32 PM REHABILITATION TEAM LEAD [facility] Comment: ----ADDITIONAL INFORMATION---- Standard intensity warfarin therapeutic range: 2.0 to 3.0 ?? High intensity warfarin therapeutic range: 2.5 to 3.5 Blood (Blood, Arterial Line) 09/19/2023 4:20 PM REHABILITATION TEAM LEAD 09/19/2023 4:20 PM REHABILITATION TEAM LEAD Rowena Antonio M.D. LAB BLOOD ADD-O N Performing Organization Address City/[facility]/ZIP Co de Phone Number [facility] [facility] [address] [place] [address], [facility] [address] [place] [address] * Fibrinogen (09/19/2023 4:20 PM REHABILITATION TEAM LEAD) Pathologist [facility] Fibrinogen, P 246 200 - 393 mg/dL 09/19/2023 4:32 PM REHABILITATION TEAM LEAD ST[facility] Blood (Blood, Arterial Line) 09/19/2023 4:20 PM REHABILITATION TEAM LEAD 09/19/2023 4:20 PM REHABILITATION TEAM LEAD Rowena Antonio M.D. LAB BLOOD ADD-O N Performing Organization Address [facility]/ZIP Co de Phone Number [facility] [address] [place], [place] [id number] [place] [address] [address] [place] [address] * APTT (Activated Partial Thromboplastin Time) (09/19/2023 4:20 PM REHABILITATION TEAM LEAD) [facility] Activated Partial Thrombopl Time, P 32 25 - 37 sec 09/19/2023 4:34 PM REHABILITATION TEAM LEAD [facility] Blood (Blood, Arterial Line) 09/19/2023 4:20 PM REHABILITATION TEAM LEAD 09/19/2023 4:20 PM REHABILITATION TEAM LEAD Rowena Antonio M.D. LAB BLOOD ADD-O N Performing Organization Address [facility] Co de Phone Number [facility] [address] [place] [address], [facility] [address] [place] [address] * (ABNORMAL) Lactate, B - Intra-op (09/19/2023 4:20 PM REHABILITATION TEAM LEAD) [facility] Lactate, B 2.9(H) 0.5 - 2.2 mmol/L 09/19/2023 4:23 PM REHABILITATION TEAM LEAD [facility] Blood (Blood, Venous) 09/19/2023 4:20 PM REHABILITATION TEAM LEAD 09/19/2023 4:20 PM REHABILITATION TEAM LEAD Rowena Antonio M.D. LAB BLOOD NON A DD-ON Performing Organization Address [facility]/ZIP Co de Phone Number [facility] [address] [place] [address], [facility] [address] [place] [address] * (ABNORMAL) Glucose, Whole Blood (09/19/2023 4:20 PM REHABILITATION TEAM LEAD) Glucose 152(H) 70 - 140 mg/dL 09/19/2023 4:23 PM REHABILITATION TEAM LEAD [facility] Blood (Blood, Arterial Line) 09/19/2023 4:20 PM REHABILITATION TEAM LEAD 09/19/2023 4:20 PM REHABILITATION TEAM LEAD Rowena Antonio M.D. LAB BLOOD ADD-O N [facility] [address] [place], [place] [address] [address] [place] [address] * Potassium, Blood (09/19/2023 4:20 PM REHABILITATION TEAM LEAD) Potassium, B 4.7 3.6 - 5.2 mmol/L 09/19/2023 4:23 PM REHABILITATION TEAM LEAD [facility] Blood (Blood, Arterial Line) 09/19/2023 4:20 PM REHABILITATION TEAM LEAD 09/19/2023 4:20 PM REHABILITATION TEAM LEAD Rowena Antonio M.D. LAB BLOOD NON A DD-ON [facility] [address] [place] [address], [facility] [address] [place] [address] * Sodium, B (09/19/2023 4:20 PM REHABILITATION TEAM LEAD) Sodium, B 139 135 - 145 mmol/L 09/19/2023 4:23 PM REHABILITATION TEAM LEAD [facility] Blood (Blood, Arterial Line) 09/19/2023 4:20 PM REHABILITATION TEAM LEAD 09/19/2023 4:20 PM REHABILITATION TEAM LEAD Rowena Antonio M.D. LAB BLOOD NON A DD-ON Performing Organization Address [facility]/ZIP Co de Phone Number [facility] [address] [place] [address] * Calcium, Ionized (09/19/2023 4:20 PM REHABILITATION TEAM LEAD) Calcium, Ionized, B 5.02 4.65 - 5.30 mg/dL 09/19/2023 4:23 PM REHABILITATION TEAM LEAD [facility] Blood (Blood, Arterial Line) 09/19/2023 4:20 PM REHABILITATION TEAM LEAD 09/19/2023 4:20 PM REHABILITATION TEAM LEAD Rowena Antonio M.D. LAB BLOOD NON A DD-ON Performing Organization Address [facility] Co de Phone Number [facility] [address] [facility] [address] [place] [address] * (ABNORMAL) Blood Gas with Coox, Arterial (09/19/2023 4:20 PM REHABILITATION TEAM LEAD) pO2 139(H) 83 - 108 mm Hg 09/19/2023 4:23 PM REHABILITATION TEAM LEAD [facility] pCO2 35 35 - 48 mm Hg 09/19/2023 4:23 PM REHABILITATION TEAM LEAD [facility] pH 7.43 7.35 - 7.45 pH 09/19/2023 4:23 PM REHABILITATION TEAM LEAD [facility] Base Excess -1 -2 - 3 mmol/L 09/19/2023 4:23 PM REHABILITATION TEAM LEAD [facility] HCO3 23 22 - 26 mmol/L 09/19/2023 4:23 PM REHABILITATION TEAM LEAD [facility] Hemoglobin, Venous 8.9(L) 13.2 - 16.6 g/dL 09/19/2023 4:23 PM REHABILITATION TEAM LEAD [facility] O2Hb 97.3 94.0 - 98.0 % 09/19/2023 4:23 PM REHABILITATION TEAM LEAD [facility] COHb 1.4 <3.0 % 09/19/2023 4:23 PM REHABILITATION TEAM LEAD [facility] MetHb <1.0 <1.5 % 09/19/2023 4:23 PM REHABILITATION TEAM LEAD [facility] CtO2 12.4(L) 18.0 - 21.0 vol % 09/19/2023 4:23 PM REHABILITATION TEAM LEAD [facility] Blood (Blood, Arterial Line) 09/19/2023 4:20 PM REHABILITATION TEAM LEAD 09/19/2023 4:20 PM REHABILITATION TEAM LEAD Rowena Antonio M.D. LAB BLOOD NON A DD-ON [facility] [address] [place] [address], [facility] [address] [place] [address] * Transfuse Pooled Cryoprecipitate: (09/19/2023 3:54 PM REHABILITATION TEAM LEAD) Rowena Antonio M.D. BLOOD TRANSFUSI ON ORDERABLES * Transfuse Pooled Cryoprecipitate: (09/19/2023 3:54 PM REHABILITATION TEAM LEAD) Rowena Antonio M.D. BLOOD TRANSFUSI ON ORDERABLES * Transfuse Red Blood Cells : (09/19/2023 3:50 PM REHABILITATION TEAM LEAD) Radha Iqbal M.D. BLOOD TRANSFUSION OR DERABLES * Thromboelastograph, Kaolin, Blood (09/19/2023 3:37 PM REHABILITATION TEAM LEAD) R, Kaolin, TEG 4.8 4.0 - 9.0 min 09/19/2023 5:46 PM REHABILITATION TEAM LEAD [facility] K, Kaolin, TEG 1.3 1.0 - 1.8 min 09/19/2023 5:46 PM REHABILITATION TEAM LEAD [facility]MA Angle, Kaolin, TEG 70.0 64.0 - 78.1 degrees 09/19/2023 5:46 PM REHABILITATION TEAM LEAD [facility] MA, Kaolin, TEG 65.4 57.1 - 72.6 mm 09/19/2023 5:46 PM REHABILITATION TEAM LEAD [facility]MA Ly30, Kaolin, TEG 0.0 0.0 - 4.8 % 09/19/2023 5:46 PM REHABILITATION TEAM LEAD [facility] Blood (Blood, Arterial Line) 09/19/2023 3:37 PM REHABILITATION TEAM LEAD 09/19/2023 3:37 PM REHABILITATION TEAM LEAD Rowena Antonio M.D. LAB BLOOD NON A DD-ON [facility] [address] [place] [address], [facility] [address] [place] [address] * Thromboelastograph, Kaolin + Heparinase (09/19/2023 3:37 PM REHABILITATION TEAM LEAD) Pathologist [facility] R-Heparinase, TEG 4.7 1.9 - 6.5 min 09/19/2023 5:46 PM REHABILITATION TEAM LEAD [facility] K-Heparinase, TEG 1.3 1.0 - 1.9 min 09/19/2023 5:46 PM REHABILITATION TEAM LEAD [facility] Angle-Heparina se, TEG 72.0 63.5 - 75.1 degrees 09/19/2023 5:46 PM REHABILITATION TEAM LEAD [facility] MA-Heparinase, TEG 65.9 57.7 - 69.3 mm 09/19/2023 5:46 PM REHABILITATION TEAM LEAD [facility] Lz59-Vstpdrncf e, TEG 0.0 0.0 - 4.7 % 09/19/2023 5:46 PM REHABILITATION TEAM LEAD [facility] Yq59-Ghjklelwc e, TEG 1.1 0.0 - 15.0 % 09/19/2023 5:46 PM REHABILITATION TEAM LEAD [facility] Blood (Blood, Arterial Line) 09/19/2023 3:37 PM REHABILITATION TEAM LEAD 09/19/2023 3:37 PM REHABILITATION TEAM LEAD Rowena Antonio M.D. LAB BLOOD NON A DD-ON [facility] [address] [place] [address], [facility] [address] [place] [address] * (ABNORMAL) Platelet Count (09/19/2023 3:37 PM REHABILITATION TEAM LEAD) Pathologist [facility] Platelet Count 108(L) 135 - 317 x10(9)/L 09/19/2023 3:45 PM REHABILITATION TEAM LEAD [facility] Blood (Blood, Arterial Line) 09/19/2023 3:37 PM REHABILITATION TEAM LEAD 09/19/2023 3:37 PM REHABILITATION TEAM LEAD Rowena Antonio M.D. LAB BLOOD ADD-O N [facility] [address] [place] [address], [facility] [address] [place] [address] * (ABNORMAL) Prothrombin Time (PT) (09/19/2023 3:37 PM REHABILITATION TEAM LEAD) Prothrombin Time, P 16.1(H) 9.4 - 12.5 sec 09/19/2023 3:51 PM REHABILITATION TEAM LEAD [facility] INR 1.5 0.9 - 1.1 09/19/2023 3:51 PM REHABILITATION TEAM LEAD [facility] Comment: ----ADDITIONAL INFORMATION---- Standard intensity warfarin therapeutic range: 2.0 to 3.0 ?? High intensity warfarin therapeutic range: 2.5 to 3.5 Blood (Blood, Arterial Line) 09/19/2023 3:37 PM REHABILITATION TEAM LEAD 09/19/2023 3:37 PM REHABILITATION TEAM LEAD Rowena Antonio M.D. LAB BLOOD ADD-O N Performing Organization Address [facility] Co de Phone Number [facility] [address] [place] [address], [facility] [address] [place] [address] * (ABNORMAL) Fibrinogen (09/19/2023 3:37 PM REHABILITATION TEAM LEAD) Fibrinogen, P 169(L) 200 - 393 mg/dL 09/19/2023 3:51 PM REHABILITATION TEAM LEAD [facility] Blood (Blood, Arterial Line) 09/19/2023 3:37 PM REHABILITATION TEAM LEAD 09/19/2023 3:37 PM REHABILITATION TEAM LEAD Rowena Antonio M.D. LAB BLOOD ADD-O N [facility] [address] [place] [address], [facility] [address] [place] [address] * APTT (Activated Partial Thromboplastin Time) (09/19/2023 3:37 PM REHABILITATION TEAM LEAD) Pathologist [facility] Activated Partial Thrombopl Time, P 34 25 - 37 sec 09/19/2023 3:53 PM REHABILITATION TEAM LEAD [facility] Blood (Blood, Arterial Line) 09/19/2023 3:37 PM REHABILITATION TEAM LEAD 09/19/2023 3:37 PM REHABILITATION TEAM LEAD Rowena Antonio M.D. LAB BLOOD ADD-O N [facility] [address] [place] [address], [facility] [address] [place] [address] * (ABNORMAL) Lactate, B - Intra-op (09/19/2023 3:37 PM REHABILITATION TEAM LEAD) Pathologist [facility] Lactate, B 3.1(H) 0.5 - 2.2 mmol/L 09/19/2023 3:41 PM REHABILITATION TEAM LEAD [facility] Blood (Blood, Venous) 09/19/2023 3:37 PM REHABILITATION TEAM LEAD 09/19/2023 3:37 PM REHABILITATION TEAM LEAD Rowena Antonio M.D. LAB BLOOD NON A DD-ON [facility] [address] [place] [address], [facility] [address] [place] [address] * (ABNORMAL) Glucose, Whole Blood (09/19/2023 3:37 PM REHABILITATION TEAM LEAD) Pathologist [facility] Glucose 148(H) 70 - 140 mg/dL 09/19/2023 3:41 PM REHABILITATION TEAM LEAD [facility] Blood (Blood, Arterial Line) 09/19/2023 3:37 PM REHABILITATION TEAM LEAD 09/19/2023 3:37 PM REHABILITATION TEAM LEAD Rowena Antonio M.D. LAB BLOOD ADD-O N [facility] [address] [place] [address], [facility] [address] [place] [address] * Potassium, Blood (09/19/2023 3:37 PM REHABILITATION TEAM LEAD) Potassium, B 4.6 3.6 - 5.2 mmol/L 09/19/2023 3:41 PM REHABILITATION TEAM LEAD [facility] Blood (Blood, Arterial Line) 09/19/2023 3:37 PM REHABILITATION TEAM LEAD 09/19/2023 3:37 PM REHABILITATION TEAM LEAD Rowena Antonio M.D. LAB BLOOD NON A DD-ON Performing Organization Address City/[facility]/ZIP Co de Phone Number [facility] [address] [place] [address], [facility] [address] [place] [address] * Sodium, B (09/19/2023 3:37 PM REHABILITATION TEAM LEAD) Sodium, B 140 135 - 145 mmol/L 09/19/2023 3:41 PM REHABILITATION TEAM LEAD [facility] Blood (Blood, Arterial Line) 09/19/2023 3:37 PM REHABILITATION TEAM LEAD 09/19/2023 3:37 PM REHABILITATION TEAM LEAD Rowena Antonio M.D. LAB BLOOD NON A DD-ON [facility] [address] [place] [address], [facility] [address] [place] [address] * Calcium, Ionized (09/19/2023 3:37 PM REHABILITATION TEAM LEAD) Calcium, Ionized, B 4.83 4.65 - 5.30 mg/dL 09/19/2023 3:41 PM REHABILITATION TEAM LEAD [facility] Blood (Blood, Arterial Line) 09/19/2023 3:37 PM REHABILITATION TEAM LEAD 09/19/2023 3:37 PM REHABILITATION TEAM LEAD Rowena Antonio M.D. LAB BLOOD NON A DD-ON [facility] [address] [place] [address], [facility] [address] [place] [address] * (ABNORMAL) Blood Gas with Coox, Arterial (09/19/2023 3:37 PM REHABILITATION TEAM LEAD) pO2 101 83 - 108 mm Hg 09/19/2023 3:41 PM REHABILITATION TEAM LEAD [facility] pCO2 40 35 - 48 mm Hg 09/19/2023 3:41 PM REHABILITATION TEAM LEAD [facility] pH 7.37 7.35 - 7.45 pH 09/19/2023 3:41 PM REHABILITATION TEAM LEAD [facility] Base Excess -3(L) -2 - 3 mmol/L 09/19/2023 3:41 PM REHABILITATION TEAM LEAD [facility] HCO3 23 22 - 26 mmol/L 09/19/2023 3:41 PM REHABILITATION TEAM LEAD ST[facility] Hemoglobin, Venous 8.1(L) 13.2 - 16.6 g/dL 09/19/2023 3:41 PM REHABILITATION TEAM LEAD [facility] O2Hb 96.3 94.0 - 98.0 % 09/19/2023 3:41 PM REHABILITATION TEAM LEAD [facility] COHb 1.4 <3.0 % 09/19/2023 3:41 PM REHABILITATION TEAM LEAD [facility] MetHb 1.0 <1.5 % 09/19/2023 3:41 PM REHABILITATION TEAM LEAD [facility] CtO2 11.1(L) 18.0 - 21.0 vol % 09/19/2023 3:41 PM REHABILITATION TEAM LEAD [facility] Blood (Blood, Arterial Line) 09/19/2023 3:37 PM REHABILITATION TEAM LEAD 09/19/2023 3:37 PM REHABILITATION TEAM LEAD Rowena Antonio M.D. LAB BLOOD NON A DD-ON [facility] [address] [place], [place] [address] [place] [address] [address] [place] [address] * Transfuse Red Blood Cells : (09/19/2023 3:23 PM REHABILITATION TEAM LEAD) Radha Iqbal M.D. BLOOD TRANSFUSION OR DERABLES * (ABNORMAL) Platelet Count (09/19/2023 2:46 PM REHABILITATION TEAM LEAD) Platelet Count 115(L) 135 - 317 x10(9)/L 09/19/2023 2:56 PM REHABILITATION TEAM LEAD [facility] Blood (Blood, Arterial Line) 09/19/2023 2:46 PM REHABILITATION TEAM LEAD 09/19/2023 2:46 PM REHABILITATION TEAM LEAD Rowena Antonio M.D. LAB BLOOD ADD-O N Performing Organization Address City/[facility]/ZIP Co de Phone Number [facility] [address] [place], [place] [address] [place] [address] [address] [place] [address] * (ABNORMAL) Prothrombin Time (PT) (09/19/2023 2:46 PM REHABILITATION TEAM LEAD) Prothrombin Time, P 15.4(H) 9.4 - 12.5 sec 09/19/2023 2:58 PM REHABILITATION TEAM LEAD [facility] INR 1.4 0.9 - 1.1 09/19/2023 2:58 PM REHABILITATION TEAM LEAD [facility] Comment: ----ADDITIONAL INFORMATION---- Standard intensity warfarin therapeutic range: 2.0 to 3.0 ?? High intensity warfarin therapeutic range: 2.5 to 3.5 Blood (Blood, Arterial Line) 09/19/2023 2:46 PM REHABILITATION TEAM LEAD 09/19/2023 2:46 PM REHABILITATION TEAM LEAD Rowena Antonio M.D. LAB BLOOD ADD-O N Performing Organization Address City/[facility]/ZIP Co de Phone Number [facility] [address] [place], [place] [address] [place] [address] [address] [place] [address] * (ABNORMAL) Fibrinogen (09/19/2023 2:46 PM REHABILITATION TEAM LEAD) Pathologist [facility] Fibrinogen, P 189(L) 200 - 393 mg/dL 09/19/2023 2:58 PM REHABILITATION TEAM LEAD [facility] Blood (Blood, Arterial Line) 09/19/2023 2:46 PM REHABILITATION TEAM LEAD 09/19/2023 2:46 PM REHABILITATION TEAM LEAD Rowena Antonio M.D. LAB BLOOD ADD-O N [facility] [address] [place] [address], [facility] [address] [place] [address] * APTT (Activated Partial Thromboplastin Time) (09/19/2023 2:46 PM REHABILITATION TEAM LEAD) [facility] Activated Partial Thrombopl Time, P 32 25 - 37 sec 09/19/2023 3:00 PM REHABILITATION TEAM LEAD [facility] Blood (Blood, Arterial Line) 09/19/2023 2:46 PM REHABILITATION TEAM LEAD 09/19/2023 2:46 PM REHABILITATION TEAM LEAD Rowena Antonio M.D. LAB BLOOD ADD-O N Performing Organization Address City/[facility]/ZIP Co de Phone Number [facility] [address] [place] [address], [facility] [address] [place] [address] * Glucose, Whole Blood (09/19/2023 2:46 PM REHABILITATION TEAM LEAD) [facility] Glucose 139 70 - 140 mg/dL 09/19/2023 2:50 PM REHABILITATION TEAM LEAD [facility] Blood (Blood, Arterial Line) 09/19/2023 2:46 PM REHABILITATION TEAM LEAD 09/19/2023 2:46 PM REHABILITATION TEAM LEAD Rowena Antonio M.D. LAB BLOOD ADD-O N [facility] [address] [place] [address], [facility] [address] [place] [address] * Potassium, Blood (09/19/2023 2:46 PM REHABILITATION TEAM LEAD) Potassium, B 3.8 3.6 - 5.2 mmol/L 09/19/2023 2:50 PM REHABILITATION TEAM LEAD [facility] Blood (Blood, Arterial Line) 09/19/2023 2:46 PM REHABILITATION TEAM LEAD 09/19/2023 2:46 PM REHABILITATION TEAM LEAD Rowena Antonio M.D. LAB BLOOD NON A DD-ON Performing Organization Address City/[facility]/ZIP Co de Phone Number [facility] [address] [place], [place] [address] [place] [address] [address] [place] [address] * Sodium, B (09/19/2023 2:46 PM REHABILITATION TEAM LEAD) Sodium, B 141 135 - 145 mmol/L 09/19/2023 2:50 PM REHABILITATION TEAM LEAD [facility] Blood (Blood, Arterial Line) 09/19/2023 2:46 PM REHABILITATION TEAM LEAD 09/19/2023 2:46 PM REHABILITATION TEAM LEAD Rowena Antonio M.D. LAB BLOOD NON A DD-ON [facility] [address] [place], [place] [address] [address] [place] [address] * (ABNORMAL) Calcium, Ionized (09/19/2023 2:46 PM REHABILITATION TEAM LEAD) Calcium, Ionized, B 5.36(H) 4.65 - 5.30 mg/dL 09/19/2023 2:50 PM REHABILITATION TEAM LEAD [facility] Blood (Blood, Arterial Line) 09/19/2023 2:46 PM REHABILITATION TEAM LEAD 09/19/2023 2:46 PM REHABILITATION TEAM LEAD Rowena Antonio M.D. LAB BLOOD NON A DD-ON [facility] [address] [place] [address], [facility] [address] [place] [address] * (ABNORMAL) Blood Gas with Coox, Arterial (09/19/2023 2:46 PM REHABILITATION TEAM LEAD) pO2 317(H) 83 - 108 mm Hg 09/19/2023 2:50 PM REHABILITATION TEAM LEAD ST[facility] pCO2 36 35 - 48 mm Hg 09/19/2023 2:50 PM REHABILITATION TEAM LEAD [facility] pH 7.42 7.35 - 7.45 pH 09/19/2023 2:50 PM REHABILITATION TEAM LEAD [facility] Base Excess -1 -2 - 3 mmol/L 09/19/2023 2:50 PM REHABILITATION TEAM LEAD [facility] HCO3 23 22 - 26 mmol/L 09/19/2023 2:50 PM REHABILITATION TEAM LEAD [facility] Hemoglobin, Venous 8.1(L) 13.2 - 16.6 g/dL 09/19/2023 2:50 PM REHABILITATION TEAM LEAD [facility] O2Hb 98.0 94.0 - 98.0 % 09/19/2023 2:50 PM REHABILITATION TEAM LEAD [facility] COHb 1.3 <3.0 % 09/19/2023 2:50 PM REHABILITATION TEAM LEAD [facility] MetHb 1.1 <1.5 % 09/19/2023 2:50 PM REHABILITATION TEAM LEAD [facility] CtO2 11.9(L) 18.0 - 21.0 vol % 09/19/2023 2:50 PM REHABILITATION TEAM LEAD [facility] Blood (Blood, Arterial Line) 09/19/2023 2:46 PM REHABILITATION TEAM LEAD 09/19/2023 2:46 PM REHABILITATION TEAM LEAD Rowena Antonio M.D. LAB BLOOD NON A DD-ON [facility] [address] [place] [address], [facility] [address] [place] [address] * DX Chest Retained Surgical Item 1 View (09/19/2023 2:30 PM REHABILITATION TEAM LEAD) Anatomical Region Laterality Modality Chest, Thoracic RST LOS, Tho racic ARZ LOS, Thoracic FLA LOS N/A Digital Radiography 09/19/2023 2:32 PM REHABILITATION TEAM LEAD Impressions 09/19/2023 2:39 PM REHABILITATION TEAM LEAD The aforementioned object in question is not identified. New sternotomy, mediastinal clips, AVR, mediastinal drains, right IJ [place]-Sep[place]h catheter tip at the MPA are identified. Likely small amount of mediastinal air. ET tube tip is low lying, approximately 1 cm above the blaine, correlation with chin position is recommended. Loop recorder. Shallower inspiration with accentuation of the cardiac silhouette and vascular crowding. Discussed with Dr. Stanford at 2:36 PM on 09/19/2023. Narrative 09/19/2023 2:39 PM REHABILITATION TEAM LEAD EXAM: DX CHEST RETAINED SURGICAL ITEM 1 [...] sternotomy,mediastinal clips, AVR, mediastinal drains, right IJ [place]-Sepideh cathetertip at the MPA are identified. Likely [...] * Transfuse Platelets : (09/19/2023 2:17 PM REHABILITATION TEAM LEAD) Radha Iqbal M.D. BLOOD TRANSFUSION OR DERABLES * Transfuse Red Blood Cells : (09/19/2023 2:00 PM REHABILITATION TEAM LEAD) Radha Iqbal M.D. BLOOD TRANSFUSION OR DERABLES * (ABNORMAL) Platelet Count (09/19/2023 1:40 PM REHABILITATION TEAM LEAD) Platelet Count 95(L) 135 - 317 x10(9)/L 09/19/2023 1:44 PM REHABILITATION TEAM LEAD [facility] Blood (Blood, Arterial Line) 09/19/2023 1:40 PM REHABILITATION TEAM LEAD 09/19/2023 1:40 PM REHABILITATION TEAM LEAD Radha Iqbal M.D. LAB BLOOD ADD-ON Performing Organization Address City/[facility] Co de Phone Number [facility] [address] [place], [place] [address] [place] [address] [address] [place] [address] * (ABNORMAL) Prothrombin Time (PT) (09/19/2023 1:40 PM REHABILITATION TEAM LEAD) Pathologist [facility] Prothrombin Time, P 16.5(H) 9.4 - 12.5 sec 09/19/2023 1:55 PM REHABILITATION TEAM LEAD [facility] IN[facility] 1.5 0.9 - 1.1 09/19/2023 1:55 PM REHABILITATION TEAM LEAD [facility] Comment: ----ADDITIONAL INFORMATION---- Standard intensity warfarin therapeutic range: 2.0 to 3.0 ?? High intensity warfarin therapeutic range: 2.5 to 3.5 Blood (Blood, Arterial Line) 09/19/2023 1:40 PM REHABILITATION TEAM LEAD 09/19/2023 1:40 PM REHABILITATION TEAM LEAD Radha Iqbal M.D. LAB BLOOD ADD-ON Performing Organization Address City/[facility]/ZIP Co de Phone Number [facility] [address] [place] [address], [facility] [address] [place] [address] * (ABNORMAL) Fibrinogen (09/19/2023 1:40 PM REHABILITATION TEAM LEAD) Pathologist [facility] Fibrinogen, P 174(L) 200 - 393 mg/dL 09/19/2023 1:56 PM REHABILITATION TEAM LEAD [facility] Blood (Blood, Arterial Line) 09/19/2023 1:40 PM REHABILITATION TEAM LEAD 09/19/2023 1:40 PM REHABILITATION TEAM LEAD Radha Iqbla M.D. LAB BLOOD ADD-ON [facility] [address] [place] [address], [facility] [address] [place] [address] * APTT (Activated Partial Thromboplastin Time) (09/19/2023 1:40 PM REHABILITATION TEAM LEAD) Pathologist [facility] Activated Partial Thrombopl Time, P 33 25 - 37 sec 09/19/2023 1:56 PM REHABILITATION TEAM LEAD [facility] Blood (Blood, Arterial Line) 09/19/2023 1:40 PM REHABILITATION TEAM LEAD 09/19/2023 1:40 PM REHABILITATION TEAM LEAD Radha Iqbal M.D. LAB BLOOD ADD-ON Performing Organization Address City/[facility]/ZIP Co de Phone Number [facility] [address] [place] [address], [facility] [address] [place] [address] * (ABNORMAL) Glucose, Whole Blood (09/19/2023 1:40 PM REHABILITATION TEAM LEAD) [facility] Glucose 155(H) 70 - 140 mg/dL 09/19/2023 1:43 PM REHABILITATION TEAM LEAD [facility] Blood (Blood, Arterial Line) 09/19/2023 1:40 PM REHABILITATION TEAM LEAD 09/19/2023 1:40 PM REHABILITATION TEAM LEAD Radha Iqbal M.D. LAB BLOOD ADD-ON [facility] [address] [place] [address], [facility] [address] [place] [address] * (ABNORMAL) Potassium, Blood (09/19/2023 1:40 PM REHABILITATION TEAM LEAD) Pathologist [facility] Potassium, B 3.3(L) 3.6 - 5.2 mmol/L 09/19/2023 1:43 PM REHABILITATION TEAM LEAD [facility] Blood (Blood, Arterial Line) 09/19/2023 1:40 PM REHABILITATION TEAM LEAD 09/19/2023 1:40 PM REHABILITATION TEAM LEAD Radha Iqbal M.D. LAB BLOOD NON ADD-ON [facility] [address] [place], [place] [id number] [place] [address] [address] [place] [address] * Sodium, B (09/19/2023 1:40 PM REHABILITATION TEAM LEAD) Sodium, B 143 135 - 145 mmol/L 09/19/2023 1:43 PM REHABILITATION TEAM LEAD [facility] Blood (Blood, Arterial Line) 09/19/2023 1:40 PM REHABILITATION TEAM LEAD 09/19/2023 1:40 PM REHABILITATION TEAM LEAD Radha Iqbal M.D. LAB BLOOD NON ADD-ON Performing Organization Address City/[facility]/ZIP Co de Phone Number [facility] [address] [place], [place] [address] [address] [place] [address] * (ABNORMAL) Calcium, Ionized (09/19/2023 1:40 PM REHABILITATION TEAM LEAD) Calcium, Ionized, B 3.81(L) 4.65 - 5.30 mg/dL 09/19/2023 1:43 PM REHABILITATION TEAM LEAD [facility] Blood (Blood, Arterial Line) 09/19/2023 1:40 PM REHABILITATION TEAM LEAD 09/19/2023 1:40 PM REHABILITATION TEAM LEAD Radha Iqbal M.D. LAB BLOOD NON ADD-ON [facility] [address] [place], [place] [address] [address] [place] [address] * (ABNORMAL) Blood Gas with Coox, Arterial (09/19/2023 1:40 PM REHABILITATION TEAM LEAD) pO2 101 83 - 108 mm Hg 09/19/2023 1:43 PM REHABILITATION TEAM LEAD [facility] pCO2 36 35 - 48 mm Hg 09/19/2023 1:43 PM REHABILITATION TEAM LEAD [facility] pH 7.40 7.35 - 7.45 pH 09/19/2023 1:43 PM REHABILITATION TEAM LEAD [facility] Base Excess -3(L) -2 - 3 mmol/L 09/19/2023 1:43 PM REHABILITATION TEAM LEAD [facility] HCO3 22 22 - 26 mmol/L 09/19/2023 1:43 PM REHABILITATION TEAM LEAD [facility] Hemoglobin, Venous 7.2(L) 13.2 - 16.6 g/dL 09/19/2023 1:43 PM REHABILITATION TEAM LEAD [facility] O2Hb 97.1 94.0 - 98.0 % 09/19/2023 1:43 PM REHABILITATION TEAM LEAD [facility] COHb 1.4 <3.0 % 09/19/2023 1:43 PM REHABILITATION TEAM LEAD [facility] MetHb <1.0 <1.5 % 09/19/2023 1:43 PM REHABILITATION TEAM LEAD [facility] CtO2 10.1(L) 18.0 - 21.0 vol % 09/19/2023 1:43 PM REHABILITATION TEAM LEAD [facility] Blood (Blood, Arterial Line) 09/19/2023 1:40 PM REHABILITATION TEAM LEAD 09/19/2023 1:40 PM REHABILITATION TEAM LEAD Radha Iqbal M.D. LAB BLOOD NON ADD-ON [facility] [address] [place] [address], [facility] [address] [place] [address] * Transfuse autologous RBC (Cell Salvage) : (09/19/2023 1:28 PM REHABILITATION TEAM LEAD) Radha Iqbal M.D. BLOOD TRANSFUSION OR DERABLES * Transfuse Fresh Frozen Plasma : (09/19/2023 1:24 PM REHABILITATION TEAM LEAD) Radha Iqbal M.D. BLOOD TRANSFUSION OR DERABLES * Transfuse Platelets : (09/19/2023 1:09 PM REHABILITATION TEAM LEAD) Radha Iqbal M.D. BLOOD TRANSFUSION OR DERABLES * Lactate, B - Intra-op (09/19/2023 12:45 PM REHABILITATION TEAM LEAD) Lactate, B 2.0 0.5 - 2.2 mmol/L 09/19/2023 12:46 PM REHABILITATION TEAM LEAD [facility] Blood (Blood, Venous) 09/19/2023 12:45 PM REHABILITATION TEAM LEAD 09/19/2023 12:45 PM REHABILITATION TEAM LEAD Radha Iqbal M.D. LAB BLOOD NON ADD-ON [facility] [address] [place], [place] [address] [place] [address] 200 [place] [address] * (ABNORMAL) Glucose, Whole Blood (09/19/2023 12:45 PM REHABILITATION TEAM LEAD) Glucose 151(H) 70 - 140 mg/dL 09/19/2023 12:46 PM REHABILITATION TEAM LEAD [facility] Blood (Blood, Arterial Line) 09/19/2023 12:45 PM REHABILITATION TEAM LEAD 09/19/2023 12:45 PM REHABILITATION TEAM LEAD Radha Iqbal M.D. LAB BLOOD ADD-ON Performing Organization Address City/[facility]/ZIP Co de Phone Number [facility] [address] [place] [address], [facility] [address] [place] [address] * Potassium, Blood (09/19/2023 12:45 PM REHABILITATION TEAM LEAD) Potassium, B 3.8 3.6 - 5.2 mmol/L 09/19/2023 12:46 PM REHABILITATION TEAM LEAD [facility] Blood (Blood, Arterial Line) 09/19/2023 12:45 PM REHABILITATION TEAM LEAD 09/19/2023 12:45 PM REHABILITATION TEAM LEAD Radha Iqbal M.D. LAB BLOOD NON ADD-ON [facility] [address] [place], [place] [address] [address] [place] [address] * Sodium, B (09/19/2023 12:45 PM REHABILITATION TEAM LEAD) Pathologist [facility] Sodium, B 142 135 - 145 mmol/L 09/19/2023 12:46 PM REHABILITATION TEAM LEAD [facility] Blood (Blood, Arterial Line) 09/19/2023 12:45 PM REHABILITATION TEAM LEAD 09/19/2023 12:45 PM REHABILITATION TEAM LEAD Radha Iqbal M.D. LAB BLOOD NON ADD-ON [facility] [address] [place], [place] [address] [place] [address] [address] [place] [address] * Calcium, Ionized (09/19/2023 12:45 PM REHABILITATION TEAM LEAD) [facility] Calcium, Ionized, B 4.86 4.65 - 5.30 mg/dL 09/19/2023 12:46 PM REHABILITATION TEAM LEAD [facility] Blood (Blood, Arterial Line) 09/19/2023 12:45 PM REHABILITATION TEAM LEAD 09/19/2023 12:45 PM REHABILITATION TEAM LEAD Radha Iqbal M.D. LAB BLOOD NON ADD-ON [facility] [address] [place] [address], [facility] [address] [place] [address] * (ABNORMAL) Blood Gas with Coox, Arterial (09/19/2023 12:45 PM REHABILITATION TEAM LEAD) [facility] pO2 360(H) 83 - 108 mm Hg 09/19/2023 12:46 PM REHABILITATION TEAM LEAD [facility] pCO2 37 35 - 48 mm Hg 09/19/2023 12:46 PM REHABILITATION TEAM LEAD [facility] pH 7.43 7.35 - 7.45 pH 09/19/2023 12:46 PM REHABILITATION TEAM LEAD [facility] Base Excess 0 -2 - 3 mmol/L 09/19/2023 12:46 PM REHABILITATION TEAM LEAD [facility] HCO3 25 22 - 26 mmol/L 09/19/2023 12:46 PM REHABILITATION TEAM LEAD [facility] Hemoglobin, Venous 8.5(L) 13.2 - 16.6 g/dL 09/19/2023 12:46 PM REHABILITATION TEAM LEAD [facility] O2Hb 98.9(H) 94.0 - 98.0 % 09/19/2023 12:46 PM REHABILITATION TEAM LEAD [facility] COHb 1.1 <3.0 % 09/19/2023 12:46 PM REHABILITATION TEAM LEAD [facility] MetHb <1.0 <1.5 % 09/19/2023 12:46 PM REHABILITATION TEAM LEAD [facility] CtO2 12.8(L) 18.0 - 21.0 vol % 09/19/2023 12:46 PM REHABILITATION TEAM LEAD [facility] Blood (Blood, Arterial Line) 09/19/2023 12:45 PM REHABILITATION TEAM LEAD 09/19/2023 12:45 PM REHABILITATION TEAM LEAD Radha Iqbal M.D. LAB BLOOD NON ADD-ON Performing Organization Address City/[facility]/ZIP Co de Phone Number [facility] [address] [place], [place] [phone] [place] [address] [address] [place] [address] * (ABNORMAL) Platelet Count (09/19/2023 12:44 PM REHABILITATION TEAM LEAD) [facility] Platelet Count 62(L) 135 - 317 x10(9)/L 09/19/2023 12:51 PM REHABILITATION TEAM LEAD [facility] Blood (Blood, Arterial Line) 09/19/2023 12:44 PM REHABILITATION TEAM LEAD 09/19/2023 12:44 PM REHABILITATION TEAM LEAD Radha Iqbal M.D. LAB BLOOD ADD-ON [facility] [address] [place] [address], [facility] [address] [place] [address] * (ABNORMAL) Prothrombin Time (PT) (09/19/2023 12:44 PM REHABILITATION TEAM LEAD) [facility] Prothrombin Time, P 18.5(H) 9.4 - 12.5 sec 09/19/2023 1:00 PM REHABILITATION TEAM LEAD [facility] INR 1.7 0.9 - 1.1 09/19/2023 1:00 PM REHABILITATION TEAM LEAD [facility] Comment: ----ADDITIONAL INFORMATION---- Standard intensity warfarin therapeutic range: 2.0 to 3.0 ?? High intensity warfarin therapeutic range: 2.5 to 3.5 Blood (Blood, Arterial Line) 09/19/2023 12:44 PM REHABILITATION TEAM LEAD 09/19/2023 12:44 PM REHABILITATION TEAM LEAD Radha Iqbal M.D. LAB BLOOD ADD-ON Performing Organization Address City/[facility]/ZIP Co de Phone Number [facility] [address] [place] [address] * (ABNORMAL) Fibrinogen (09/19/2023 12:44 PM REHABILITATION TEAM LEAD) Pathologist [facility] Fibrinogen, P 195(L) 200 - 393 mg/dL 09/19/2023 12:59 PM REHABILITATION TEAM LEAD [facility] Blood (Blood, Arterial Line) 09/19/2023 12:44 PM REHABILITATION TEAM LEAD 09/19/2023 12:44 PM REHABILITATION TEAM LEAD Radha Iqbal M.D. LAB BLOOD ADD-ON Performing Organization Address City/[facility]/ZIP Co de Phone Number [facility] [address] [place] [address] * (ABNORMAL) APTT (Activated Partial Thromboplastin Time) (09/19/2023 12:44 PM REHABILITATION TEAM LEAD) [facility] Activated Partial Thrombopl Time, P 40(H) 25 - 37 sec 09/19/2023 1:01 PM REHABILITATION TEAM LEAD [facility] Blood (Blood, Arterial Line) 09/19/2023 12:44 PM REHABILITATION TEAM LEAD 09/19/2023 12:44 PM REHABILITATION TEAM LEAD Radha Iqbal M.D. LAB BLOOD ADD-ON Performing Organization Address City/[facility]/ZIP Co de Phone Number [facility] [address] [place] [address], [facility] [address] [place] [address] * ACT (Activated Clotting Time), POCT (09/19/2023 12:42 PM REHABILITATION TEAM LEAD) Activated Clotting Time 126 82 - 152 sec 09/19/2023 12:45 PM REHABILITATION TEAM LEAD PCLX 09/19/2023 12:4 2 PM REHABILITATION TEAM LEAD 09/19/2023 12:45 PM REHABILITATION TEAM LEAD Unknown Provider LAB POCT ORDERABLES - DEVICE Performing Organization Address City/[facility] Co de Phone Number POC [facility] [address] [place] [address], [facility] [address] [place] [address] * (ABNORMAL) Hemoglobin (HGB), POCT (09/19/2023 12:17 PM REHABILITATION TEAM LEAD) Hemoglobin, POCT, B 8.7(L) 13.2 - 16.6 g/dL 09/19/2023 12:23 PM REHABILITATION TEAM LEAD PCSM Blood 09/19/2023 12:1 7 PM REHABILITATION TEAM LEAD 09/19/2023 12:23 PM REHABILITATION TEAM LEAD Unknown Provider LAB POCT ORDERABLES - DEVICE Performing Organization Address City/[facility]/ZIP Co de Phone Number POC [facility] [address] [place] [address], [facility] [address] [place] [address] * (ABNORMAL) ACT (Activated Clotting Time), POCT (09/19/2023 12:01 PM REHABILITATION TEAM LEAD) Activated Clotting Time 668(H) 82 - 152 sec 09/19/2023 12:18 PM REHABILITATION TEAM LEAD PCLX 09/19/2023 12:0 1 PM REHABILITATION TEAM LEAD 09/19/2023 12:18 PM REHABILITATION TEAM LEAD Unknown Provider LAB POCT ORDERABLES - DEVICE Performing Organization Address City/[facility]/ZIP Co de Phone Number POC [facility] [address] [place] [address], [facility] [address] [place] [address] * (ABNORMAL) Glucose, POCT (09/19/2023 12:00 PM REHABILITATION TEAM LEAD) Glucose, POCT, B 150(H) 70 - 140 mg/dL 09/19/2023 12:01 PM REHABILITATION TEAM LEAD PCSM Site ARTLINE 09/19/2023 12:01 PM REHABILITATION TEAM LEAD PCS Blood 09/19/2023 12:0 0 PM REHABILITATION TEAM LEAD 09/19/2023 12:01 PM REHABILITATION TEAM LEAD Unknown Provider LAB POCT ORDERABLES- MANUAL Performing Organization Address City/[facility]/ZIP Co de Phone Number POC [facility] [address] [place] [address], [facility] [address] [place] [address] * Surgical Pathology, Frozen Lab (09/19/2023 11:34 AM REHABILITATION TEAM LEAD) 09/25/2023 10:47 AM REHABILITATION TEAM LEAD [facility] Participated in the Interpretation Amber Gutierrez M.D. -Pathology Resident 09/25/2023 10:47 AM REHABILITATION TEAM LEAD [facility] Report electronically signed by Zohreh De La Cruz M.D. I verify that I have examined all relevant slides/materials for the specimen(s) and rendered or confirmed the diagnosis. 09/25/2023 10:47 AM REHABILITATION TEAM LEAD [facility] Gross Description A. ??Received fresh labeled with the patient's name, medical record number, and designated as heart, left atrial appendage. ??It consists of a 2.6 x 2.4 x 1.3 cm atrial appendage without mural thrombus. ??Deputy [employer] sections are submitted for microscopy in cassette A1. ??Grossed by Teresa Qureshi M.S., PA([facility] B. ??Received fresh labeled with the patient's [...] up to 0.2 cm in greatest size. ??Deputy Sheriff K9 Handler sections are submitted for microscopy in cassette B1, following decalcification. Grossed by Teresa Qureshi M.S., PA([facility]). 09/25/2023 10:47 AM REHABILITATION TEAM LEAD [facility] Block Summary A Heart, left atrial appendage A1 B Heart, aortic valve B1 09/25/2023 10:47 AM REHABILITATION TEAM LEAD [facility] Interpretation FINAL DIAGNOSIS A. ??Heart, left atrial appendage, excision: Mild myocyte hypertrophy and mild interstitial fibrosis, without mural thrombus. B. ??Heart, aortic valve, excision: ? 1. ??Degenerative fibrocalcific aortic valve disease, with moderate calcification ?(evaluated with Verhoeff-Van Gieson stain on block B1). ? 2. ??History of severe aortic stenosis and trivial aortic regurgitation. Diagnosis was made via digital imaging. 09/25/2023 10:47 AM REHABILITATION TEAM LEAD [facility] Tissue (Heart, Atrium) 09/19/2023 11:34 AM REHABILITATION TEAM LEAD Tissue (Heart Valve, Aortic) 09/19/2023 11:34 AM REHABILITATION TEAM LEAD Sarah Miller M.D., M.P.H. LAB SURG PATH ORDERABLES [facility] [address] [place] [address], [facility] [address] [place] [address] * Transfuse autologous RBC (Cell Salvage) : (09/19/2023 11:33 AM REHABILITATION TEAM LEAD) Radha Iqbal M.D. BLOOD TRANSFUSION OR DERABLES * (ABNORMAL) ACT (Activated Clotting Time), POCT (09/19/2023 11:28 AM REHABILITATION TEAM LEAD) Activated Clotting Time 587(H) 82 - 152 sec 09/19/2023 11:43 AM REHABILITATION TEAM LEAD PCLX 09/19/2023 11:2 8 AM REHABILITATION TEAM LEAD 09/19/2023 11:43 AM REHABILITATION TEAM LEAD Unknown Provider LAB POCT ORDERABLES - DEVICE Performing Organization Address [facility]/ZIP Co de Phone Number POC [facility] [address] [place] [address], [place] [address] [place] [address] * (ABNORMAL) ACT (Activated Clotting Time), POCT (09/19/2023 10:55 AM REHABILITATION TEAM LEAD) Activated Clotting Time 631(H) 82 - 152 sec 09/19/2023 11:05 AM REHABILITATION TEAM LEAD PCLX 09/19/2023 10:5 5 AM REHABILITATION TEAM LEAD 09/19/2023 11:05 AM REHABILITATION TEAM LEAD Unknown Provider LAB POCT ORDERABLES - DEVICE Performing Organization Address [facility] Co de Phone Number POC [facility] [address] [place] [address], [facility] [address] [place] [address] * (ABNORMAL) ACT (Activated Clotting Time), POCT (09/19/2023 10:24 AM REHABILITATION TEAM LEAD) Activated Clotting Time 747(H) 82 - 152 sec 09/19/2023 10:37 AM REHABILITATION TEAM LEAD PCLX 09/19/2023 10:2 4 AM REHABILITATION TEAM LEAD 09/19/2023 10:37 AM REHABILITATION TEAM LEAD Unknown Provider LAB POCT ORDERABLES - DEVICE Performing Organization Address [facility] Co de Phone Number [facility] [address] [place] [address], [facility] [address] [place] [address] * (ABNORMAL) Glucose, POCT (09/19/2023 10:23 AM REHABILITATION TEAM LEAD) Glucose, POCT, B 148(H) 70 - 140 mg/dL 09/19/2023 10:24 AM REHABILITATION TEAM LEAD PCSM Site ARTLINE 09/19/2023 10:24 AM REHABILITATION TEAM LEAD [facility] Blood 09/19/2023 10:2 3 AM REHABILITATION TEAM LEAD 09/19/2023 10:24 AM REHABILITATION TEAM LEAD Unknown Provider LAB POCT ORDERABLES- MANUAL [facility] [address] [place] [address], [facility] PCSM [facility] POC [address] [place] [address] * Transfuse Red Blood Cells : (09/19/2023 10:13 AM REHABILITATION TEAM LEAD) Radha Iqbal M.D. BLOOD TRANSFUSION OR DERABLES * (EDMUNDO) - INTRAOPERATIVE WITH COLOR AND LIMITED DOPPLER (PROBE NOT PLACED) (09/19/2023 9:56 AM REHABILITATION TEAM LEAD) Ejection Fraction [facility] Anatomical Region Laterality Modality Echocardiography 09/19/2023 6:43 AM REHABILITATION TEAM LEAD Impressions 09/19/2023 1:45 PM REHABILITATION TEAM LEAD PROCEDURE:Transesophageal echocardiogram performed at the request of the primary director of services. Transesophageal echocardiogram completed without complications. PRE-BYPASS:Pre-bypass [...] the Order-Level Documents. Narrative 09/19/2023 1:45 PM REHABILITATION TEAM LEAD For the complete report, see the Order-Level [...] PROCEDURE:Transesophageal echocardiogram performed at the request of thesdimary director of services. Transesophageal echocardiogram completedwithout complications. PRE-BYPASS:Pre-bypass left [...] M.D., M.P.H. CV ECHO PROCE DURES * (ABNORMAL) ACT (Activated Clotting Time), POCT (09/19/2023 9:51 AM REHABILITATION TEAM LEAD) [facility] Activated Clotting Time 910(H) 82 - 152 sec 09/19/2023 10:04 AM REHABILITATION TEAM LEAD PCLX 09/19/2023 9:51 AM REHABILITATION TEAM LEAD 09/19/2023 10:04 AM REHABILITATION TEAM LEAD Unknown Provider LAB POCT ORDERABLES - DEVICE Performing Organization Address City/[facility]/ZIP Co de Phone Number POC [facility] [address] [place] [address], [place] [facility] [address] [place] [address] * Glucose, Whole Blood (09/19/2023 9:51 AM REHABILITATION TEAM LEAD) [facility] Glucose 126 70 - 140 mg/dL 09/19/2023 9:53 AM REHABILITATION TEAM LEAD [facility] Blood (Blood, Arterial Line) 09/19/2023 9:51 AM REHABILITATION TEAM LEAD 09/19/2023 9:51 AM REHABILITATION TEAM LEAD Sarah Miller M.D., M.P.H. LAB BLOOD ADD -ON Performing Organization Address City/[facility]/ZIP Co de Phone Number [facility] [address] [place] [address], [place] [address] [place] [address] * Potassium, Blood (09/19/2023 9:51 AM REHABILITATION TEAM LEAD) [facility] Potassium, B 4.1 3.6 - 5.2 mmol/L 09/19/2023 9:53 AM REHABILITATION TEAM LEAD [facility] Blood (Blood, Arterial Line) 09/19/2023 9:51 AM REHABILITATION TEAM LEAD 09/19/2023 9:51 AM REHABILITATION TEAM LEAD Sarah Miller M.D., M.P.H. LAB BLOOD NON ADD-ON Performing Organization Address City/[facility]/ZIP Co de Phone Number [facility] [address] [place] [address] * Sodium, B (09/19/2023 9:51 AM REHABILITATION TEAM LEAD) Pathologist [facility] Sodium, B 143 135 - 145 mmol/L 09/19/2023 9:53 AM REHABILITATION TEAM LEAD [facility] Blood (Blood, Arterial Line) 09/19/2023 9:51 AM REHABILITATION TEAM LEAD 09/19/2023 9:51 AM REHABILITATION TEAM LEAD Sarah Miller M.D., M.P.H. LAB BLOOD NON ADD-ON Performing Organization Address City/[facility]/ZIP Co de Phone Number [facility] [address] [place], [place] [address] [place] [address] [address] [place] [address] * (ABNORMAL) Calcium, Ionized (09/19/2023 9:51 AM REHABILITATION TEAM LEAD) Calcium, Ionized, B 3.99(L) 4.65 - 5.30 mg/dL 09/19/2023 9:53 AM REHABILITATION TEAM LEAD [facility] Blood (Blood, Arterial Line) 09/19/2023 9:51 AM REHABILITATION TEAM LEAD 09/19/2023 9:51 AM REHABILITATION TEAM LEAD Sarah Miller M.D., M.P.H. LAB BLOOD NON ADD-ON [facility] [address] [place] [address], [facility] [address] [place] [address] * (ABNORMAL) Blood Gas with Coox, Arterial (09/19/2023 9:51 AM REHABILITATION TEAM LEAD) Pathologist [facility] pO2 339(H) 83 - 108 mm Hg 09/19/2023 9:53 AM REHABILITATION TEAM LEAD [facility] pCO2 38 35 - 48 mm Hg 09/19/2023 9:53 AM REHABILITATION TEAM LEAD [facility] pH 7.45 7.35 - 7.45 pH 09/19/2023 9:53 AM REHABILITATION TEAM LEAD [facility] Base Excess 2 -2 - 3 mmol/L 09/19/2023 9:53 AM REHABILITATION TEAM LEAD [facility] HCO3 26 22 - 26 mmol/L 09/19/2023 9:53 AM REHABILITATION TEAM LEAD [facility] Hemoglobin, Venous 8.1(L) 13.2 - 16.6 g/dL 09/19/2023 9:53 AM REHABILITATION TEAM LEAD [facility] O2Hb 99.1(H) 94.0 - 98.0 % 09/19/2023 9:53 AM REHABILITATION TEAM LEAD [facility] COHb 1.2 <3.0 % 09/19/2023 9:53 AM REHABILITATION TEAM LEAD [facility] MetHb <1.0 <1.5 % 09/19/2023 9:53 AM REHABILITATION TEAM LEAD [facility] CtO2 12.2(L) 18.0 - 21.0 vol % 09/19/2023 9:53 AM REHABILITATION TEAM LEAD [facility] Blood (Blood, Arterial Line) 09/19/2023 9:51 AM REHABILITATION TEAM LEAD 09/19/2023 9:51 AM REHABILITATION TEAM LEAD Sarah Miller M.D., M.P.H. LAB BLOOD NON ADD-ON [facility] [address] [place] [address], [facility] [address] [place] [address] * (ABNORMAL) ACT (Activated Clotting Time), POCT (09/19/2023 9:26 AM REHABILITATION TEAM LEAD) [facility] Activated Clotting Time 868(H) 82 - 152 sec 09/19/2023 9:37 AM REHABILITATION TEAM LEAD PCLX 09/19/2023 9:26 AM REHABILITATION TEAM LEAD 09/19/2023 9:37 AM REHABILITATION TEAM LEAD Unknown Provider LAB POCT ORDERABLES - DEVICE Performing Organization Address City/[facility]/ZIP Co de Phone Number POC [facility] [address] [place] [address], [place] [facility] [address] [place] [address] * (ABNORMAL) Hemoglobin (HGB), POCT (09/19/2023 9:24 AM REHABILITATION TEAM LEAD) Hemoglobin, POCT, B 9.8(L) 13.2 - 16.6 g/dL 09/19/2023 9:31 AM REHABILITATION TEAM LEAD PCS Blood 09/19/2023 9:24 AM REHABILITATION TEAM LEAD 09/19/2023 9:31 AM REHABILITATION TEAM LEAD Unknown Provider LAB POCT ORDERABLES - DEVICE Performing Organization Address City/[facility] Co de Phone Number POC [facility] [address] [place] [address], [place] [facility] [address] [place] [address] * Lactate, B - Intra-op (09/19/2023 8:25 AM REHABILITATION TEAM LEAD) Lactate, B 0.9 0.5 - 2.2 mmol/L 09/19/2023 8:28 AM REHABILITATION TEAM LEAD [facility] Blood (Blood, Venous) 09/19/2023 8:25 AM REHABILITATION TEAM LEAD 09/19/2023 8:25 AM REHABILITATION TEAM LEAD Radha Iqbal M.D. LAB BLOOD NON ADD-ON Performing Organization Address City/[facility]/ZIP Co de Phone Number [facility] [address] [place] [address], [place] [address] [place] [address] * Glucose, Whole Blood (09/19/2023 8:25 AM REHABILITATION TEAM LEAD) Glucose 133 70 - 140 mg/dL 09/19/2023 8:28 AM REHABILITATION TEAM LEAD [facility] Blood (Blood, Arterial Line) 09/19/2023 8:25 AM REHABILITATION TEAM LEAD 09/19/2023 8:25 AM REHABILITATION TEAM LEAD Radha Iqbal M.D. LAB BLOOD ADD-ON [facility] [address] [place], [place] [address] [place] [address] [address] [place] [address] * Potassium, Blood (09/19/2023 8:25 AM REHABILITATION TEAM LEAD) Potassium, B 3.8 3.6 - 5.2 mmol/L 09/19/2023 8:28 AM REHABILITATION TEAM LEAD [facility] Blood (Blood, Arterial Line) 09/19/2023 8:25 AM REHABILITATION TEAM LEAD 09/19/2023 8:25 AM REHABILITATION TEAM LEAD Radha Iqbal M.D. LAB BLOOD NON ADD-ON [facility] [address] [place], [place] [address] [place] [address] [address] [place] [address] * Sodium, B (09/19/2023 8:25 AM REHABILITATION TEAM LEAD) Sodium, B 143 135 - 145 mmol/L 09/19/2023 8:28 AM REHABILITATION TEAM LEAD [facility] Blood (Blood, Arterial Line) 09/19/2023 8:25 AM REHABILITATION TEAM LEAD 09/19/2023 8:25 AM REHABILITATION TEAM LEAD Radha Iqbal M.D. LAB BLOOD NON ADD-ON [facility] [address] [place], [place] [id number] [place] [address] [address] [place] [address] * (ABNORMAL) Calcium, Ionized (09/19/2023 8:25 AM REHABILITATION TEAM LEAD) Calcium, Ionized, B 4.50(L) 4.65 - 5.30 mg/dL 09/19/2023 8:28 AM REHABILITATION TEAM LEAD [facility] Blood (Blood, Arterial Line) 09/19/2023 8:25 AM REHABILITATION TEAM LEAD 09/19/2023 8:25 AM REHABILITATION TEAM LEAD Radha Iqbal M.D. LAB BLOOD NON ADD-ON [facility] [address] [place] [address], [facility] [address] [place] [address] * (ABNORMAL) Blood Gas with Coox, Arterial (09/19/2023 8:25 AM REHABILITATION TEAM LEAD) pO2 421(H) 83 - 108 mm Hg 09/19/2023 8:28 AM REHABILITATION TEAM LEAD [facility] pCO2 40 35 - 48 mm Hg 09/19/2023 8:28 AM REHABILITATION TEAM LEAD [facility] pH 7.42 7.35 - 7.45 pH 09/19/2023 8:28 AM REHABILITATION TEAM LEAD [facility] Base Excess 1 -2 - 3 mmol/L 09/19/2023 8:28 AM REHABILITATION TEAM LEAD [facility] HCO3 26 22 - 26 mmol/L 09/19/2023 8:28 AM REHABILITATION TEAM LEAD [facility] Hemoglobin, Venous 9.8(L) 13.2 - 16.6 g/dL 09/19/2023 8:28 AM REHABILITATION TEAM LEAD [facility] O2Hb 98.6(H) 94.0 - 98.0 % 09/19/2023 8:28 AM REHABILITATION TEAM LEAD [facility] COHb 1.0 <3.0 % 09/19/2023 8:28 AM REHABILITATION TEAM LEAD STMA MetHb <1.0 <1.5 % 09/19/2023 8:28 AM REHABILITATION TEAM LEAD STMA CtO2 14.7(L) 18.0 - 21.0 vol % 09/19/2023 8:28 AM REHABILITATION TEAM LEAD STMA Blood (Blood, Arterial Line) 09/19/2023 8:25 AM REHABILITATION TEAM LEAD 09/19/2023 8:25 AM REHABILITATION TEAM LEAD Radha Iqbal M.D. LAB BLOOD NON ADD-ON [facility] [address] [place] [address], RUST STMA [facility] [address] [place] [address] * ACT (Activated Clotting Time), POCT (09/19/2023 8:24 AM REHABILITATION TEAM LEAD) Activated Clotting Time 132 82 - 152 sec 09/19/2023 8:27 AM REHABILITATION TEAM LEAD PCLX 09/19/2023 8:24 AM REHABILITATION TEAM LEAD 09/19/2023 8:27 AM REHABILITATION TEAM LEAD Unknown Provider LAB POCT ORDERABLES - DEVICE Performing Organization Address City/[facility] Co de Phone Number POC [facility] [address] [place] [address], RUST PCLX [facility] [address] [place] [address] documented in this encounter Visit Diagnoses Diagnosis Stenosis Aortic Valve Acquired- Primary Acquired Aortic Valve Disorder Stenosis Aortic Valve Acquired Decline Functional Status [R53.81] 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 History Cardiac Surgery Status Post Failure Renal Acute (Acute Kidney Injury) ([facility]) 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 Glomerular Filtration Rate (GFR) 30 To 44 (HCC) Hyperlipidemia On Treatment Acquired Aortic Valve Disorder Stenosis Aortic Valve Acquired documented in this encounter Admitting Diagnoses Diagnosis [...] Sun09/21/23 at 1800 Given 09/26/2023 11:39 AM REHABILITATION TEAM LEAD 1,000 mg Given 09/26/2023 6:59 AM REHABILITATION TEAM LEAD 1,000 mg Given 09/26/2023 12:55 AM REHABILITATION TEAM LEAD 1,000 mg albuterol nebulizer solution 2.5 mg 2.5 mg, nebulization, Every 4 hours PRN, wheezing, Starting on Sun09/19/23 at 1707 amiodarone tablet 200 mg (PACERONE) 200 mg, oral, 2 times daily, First dose on Sun09/26/23 at 0900, For 4 days Given 09/26/2023 7:57 AM REHABILITATION TEAM LEAD 200 mg amiodarone tablet 200 mg (PACERONE) 200 mg, oral, Daily, First dose on 09/30/23 at 0900, For 30 days aspirin chewable tablet 81 mg 81 mg, oral, Daily, First dose on Carissa 09/20/23 at 0900 Given 09/26/2023 8:00 AM REHABILITATION TEAM LEAD 81 mg Given 09/25/2023 8:04 AM REHABILITATION TEAM LEAD 81 mg Given 09/24/2023 8:39 AM REHABILITATION TEAM LEAD 81 mg atorvastatin tablet 80 mg (LIPITOR) 80 mg, oral, Daily at bedtime, First dose on Sun09/19/23 at 2100 Given 09/25/2023 8:17 PM REHABILITATION TEAM LEAD 80 mg Given 09/24/2023 8:34 PM REHABILITATION TEAM LEAD 80 mg Given 09/23/2023 9:57 PM REHABILITATION TEAM LEAD 80 mg benzocaine-menthoL 15-3.6 mg per lozenge 1 lozenge (CEPACOL) 1 lozenge, oral, As needed, sore throat, Starting on Sun09/19/23 at 1707 bisacodyL suppository 10 mg (DULCOLAX) 10 mg, rectal, Daily PRN, constipation, Starting on Sun09/19/23 at 1707, If no bowel movement for 72 hours. Hold for loose stool. ceFAZolin 1 g in NaCl 0.9% irrigation pour bottle irrigation, Once in surgery, OR use only, Starting on Sun09/19/23 at 0710, For 1 dose, Intra-Op, Irrigation Use Only Refrigerate Given 09/19/2023 1:13 PM REHABILITATION TEAM LEAD 1,000 mL Chest ceFAZolin 1 g in NaCl 0.9% irrigation pour bottle As needed, Starting on Sun09/19/23 at 1550, Intra-Op Given 09/19/2023 3:50 PM REHABILITATION TEAM LEAD 1,000 mL cellulose, oxidized 6 X 9 pad (SURGICEL NU-KNIT) As needed, Starting on Sun09/19/23 at 1313, Intra-Op Given 09/19/2023 1:13 PM REHABILITATION TEAM LEAD 1 each Chest electrolyte-A solution (PLASMA-LYTE A) Continuous Infusion: Per Instructions PRN, Starting on Sun09/19/23 at 1015, Intra-Op New Bag 09/19/2023 10:15 AM REHABILITATION TEAM LEAD 500 mL Other finasteride tablet 5 mg (PROSCAR) 5 mg, oral, Daily, First dose on Sun09/21/23 at 0900, Hold with indwelling urinary catheter See tube feeding guidelines for tube feeding administration instructions. Given 09/26/2023 8:00 AM REHABILITATION TEAM LEAD 5 mg Given 09/25/2023 8:07 AM REHABILITATION TEAM LEAD 5 mg Given 09/24/2023 8:39 AM REHABILITATION TEAM LEAD 5 mg furosemide tablet 20 mg (LASIX) 20 mg, oral, Daily, First dose on Sun09/26/23 at 0900 Given 09/26/2023 8:01 AM REHABILITATION TEAM LEAD 20 mg HYDROmorphone (PF) injection 0.2 mg (DILAUDID) 0.2 [...] writing Insulin orders Given 09/26/2023 11:39 AM REHABILITATION TEAM LEAD 4 Units Left Upper Arm (Back ) Given 09/26/2023 7:59 AM REHABILITATION TEAM LEAD 2 Units Le ft Upper Arm (Back) Given 09/25/2023 5:42 PM REHABILITATION TEAM LEAD 4 Units Le ft Upper Arm (Back) ipratropium-albuteroL 0.5-2.5 mg/3 mL nebulizer solution 3 mL (DUONEB) 3 mL, nebulization, 3 times daily, First dose on Sun09/24/23 at 1015 Given 09/25/2023 8:05 AM REHABILITATION TEAM LEAD 3 mL Given 09/24/2023 8:34 PM REHABILITATION TEAM LEAD 3 mL Given 09/24/2023 10:23 AM REHABILITATION TEAM LEAD 3 mL lactulose solution 20 g (CHRONULAC) 20 g, [...] 12 hours Medication Applied 09/20/2023 1:42 AM REHABILITATION TEAM LEAD 1 patch Chest melatonin tablet 10 mg 10 mg, oral, Bedtime PRN, sleep, Starting on Sun09/20/23 at 2007 Given 09/20/2023 8:44 PM REHABILITATION TEAM LEAD 10 mg metoclopramide tablet 5 mg (REGLAN) 5 mg, oral, Every 8 hours PRN, hiccups, Starting on Sun09/25/23 at 1053 metoprolol tartrate tablet 25 mg (LOPRESSOR) 25 mg, oral, 2 times daily, First dose (after last modification) on Sun09/20/23 at 2100 Given 09/26/2023 8:00 AM REHABILITATION TEAM LEAD 25 mg Given 09/25/2023 8:17 PM REHABILITATION TEAM LEAD 25 mg Given 09/25/2023 8:04 AM REHABILITATION TEAM LEAD 25 mg naloxone injection 0.2 mg (NARCAN) 0.2 mg, intravenous, As needed, respiratory depression, Starting on Sun09/19/23 at 1707, For RASS Score -4 or less, respiratory rate of less than 8 breaths/min. Notify provider/service and rapid response team (if available at institution). oxyCODONE IR tablet 10 mg (ROXICODONE) 10 mg, oral, Every 4 hours PRN, severe pain or score 7-10 of 10, Starting on Sun09/19/23 at 1707, Patient is able to take oral medications. Given 09/20/2023 1:42 AM REHABILITATION TEAM LEAD 10 mg oxyCODONE IR tablet 5 mg (ROXICODONE) 5 mg, oral, Every 4 hours PRN, moderate pain or score 4-6 of 10, Starting on Sun09/19/23 at 1707, Patient is able to take oral medications. pantoprazole DR tablet 40 mg (PROTONIX) 40 mg, oral, Daily, First dose on Sun09/20/23 at 0700, Swallow whole. Do NOT crush, chew, or split tablet. Given 09/26/2023 6:59 AM REHABILITATION TEAM LEAD 40 mg Given 09/25/2023 6:54 AM REHABILITATION TEAM LEAD 40 mg Given 09/24/2023 5:23 AM REHABILITATION TEAM LEAD 40 mg polyethylene glycol powder packet 17 g (MIRALAX) 17 g, oral, Daily PRN, constipation, Starting on 09/23/23 at 1730, If no bowel movement for 48 hours. Hold for loose stool. Avoid mixing with starch-based thickened liquids. rOPINIRole tablet 0.5 mg (REQUIP) 0.5 mg, oral, 3 times daily, First dose (after last modification) on Carissa 09/20/23 at 1400, For restless legs Given 09/26/2023 1:19 PM REHABILITATION TEAM LEAD 0.5 mg Given 09/26/2023 7:58 AM REHABILITATION TEAM LEAD 0.5 mg Given 09/25/2023 8:17 PM REHABILITATION TEAM LEAD 0.5 mg sennosides-docusate sodium 8.6-50 mg per tablet 2 tablet (SENOKOT-S) 2 tablet, oral, Daily at bedtime, First dose (after last modification) on Sun09/24/23 at 2100, Hold for loose stool simethicone chewable tablet 125 mg (MYLICON) 125 mg, oral, Every 6 hours PRN, flatulence, Starting on Sun09/19/23 at 1707 Given 09/20/2023 8:03 AM REHABILITATION TEAM LEAD 125 mg tamsulosin 24 hr capsule 0.4 mg (FLOMAX) 0.4 mg, oral, Daily, First dose on Sun09/21/23 at 0900, Hold if indwelling urinary catheter in place Swallow whole. Do NOT crush, chew or open capsule. Given 09/26/2023 8:00 AM REHABILITATION TEAM LEAD 0.4 mg Given 09/25/2023 8:04 AM REHABILITATION TEAM LEAD 0.4 mg Given 09/24/2023 8:39 AM REHABILITATION TEAM LEAD 0.4 mg thrombin (human plasma)-wxqxyrgdio-iouwcysic-Op topical solution ([facility]) As needed, Starting on Sun09/19/23 at 1214, Intra-Op Given 09/19/2023 12:14 PM REHABILITATION TEAM LEAD 10 mL Ch est vancomycin powder As needed, Starting on Sun09/19/23 at 1315, Intra-Op Given 09/19/2023 1:55 PM REHABILITATION TEAM LEAD 1 g vancomycin powder As needed, Starting on Sun09/19/23 at 1611, Intra-Op Given 09/19/2023 4:11 PM REHABILITATION TEAM LEAD 1 g warfarin management (COUMADIN) oral, Daily, First dose on Sun09/21/23 at 0745, Pharmacist to Dose: Yes, Target INR: 2 - 3, Comorbidities that constitute Warfarin Sensitivity: Post-cardiac valve surgery, Indication: Aortic valve - Mechanical, Therapy type: New Warfarin therapy documented in this encounter Active and Recently Administered Medications Times are shown in REHABILITATION TEAM LEAD. Scheduled Medication Order 09/24/2023 09/25/2023 09/26/2023 acetaminophen tablet 1,000 mg (TYLENOL)(Linked Group 1) 1,000 mg, oral, Every 6 hours, First dose (after last modification) on Sun09/21/23 at 1800 0141 (Given - Provider: Liliana Galindo RJarrettNJarrett)0838 (Given - Provider: Radha Lara RJarrettNJarrett)1545 (Given - Provider: Amita Mercado RJarrettNJarrett)2034 (Given - Provider: Ar Mills RSammi) 0548 (Given - Provider: Ar Mills RJarrettN.)1349 (Given - Provider: Kelsey Downing RJarrettNJarrett)1734 (Given - Provider: Kelsey Downing RJarrettNJarrett) 0055 (Given - Provider: Alireza Stahl RJarrettNJarrett)0659 (Given - Provider: Ar Mills RJarrettNJarrett)1139 (Given - Provider: Valorie Osman RJarrettNJarrett) amiodarone tablet 200 mg (PACERONE)(Linked Group 2) 200 mg, oral, 2 times daily, First dose on Sun09/26/23 at 0900, For 4 days 0757 (Given - Provider: Radha Lara RJarrettNJarrett) amiodarone tablet 200 mg (PACERONE)(Linked Group 2) 200 mg, oral, Daily, First dose on Sun09/30/23 at 0900, For 30 days amiodarone tablet 400 mg (PACERONE) (COMPLETED)(Linked Group 2) 400 mg, oral, 2 times daily, First dose on Sun09/22/23 at 1245, For 4 days 0839 (Given - Provider: Radha Lara R.N.)2032 (Given - Provider: Ar Mills R.N.) 803 (Given - Provider: Kelsey Downing R.N.)2016 (Given - Provider: Ar Mills R.N.) aspirin chewable tablet 81 mg 81 mg, oral, Daily, First dose on Sun09/20/23 at 0900 0839 (Given - Provider: Radha Lara R.N.) 0804 (Given - Provider: Kelsey Downing R.N.) 08 (Given - Provider: Radha Lara R.N.) atorvastatin [...] 0807 (Given - Provider: Kelsey Downing R.N.) 08 (Given - Provider: Radha Lara R.N.) furosemide [...] Sun09/26/23 at 0900 0801 (Given - Provider: Radha Lara R.N.) insulin aspart U-100 injection 0-13 Units (NovoLOG [...] Lara R.N.)1645 (Given - Provider: Erica Butler RJarrettNJarrett - Comment: Blood sugar of 221 mg/dl) 0811 (Given - Provider: Kelsey Downing R.N.)1354 (Given - Provider: Kelsey Downing R.N.)1742 (Given - Provider: Kelsey Downing R.N.) 0759 (Given - Provider: Felipe GuadarramaN.)1139 (Given - Provider: Valorie Osman RJarrettN.) ipratropium-albuteroL 0.5-2.5 mg/3 mL nebulizer solution 3 mL (DUONEB) 3 mL, nebulization, 3 times daily, First dose on Sun09/24/23 at 1015 1023 (Given - Provider: Felipe GuadarramaN.)2034 (Given - Provider: Ar Mills RJarrettN.) 0805 (Given - Provider: Kelsey Downing R.N.)1351 [...] Lara R.N.)1545 (Given - Provider: Amita Mercado RSammi)2034 (Given - Provider: Ar Mills R.N.) 0804 (Given - Provider: Kelsey Downing R.N.)1351 (Given - Provider: Kelsey Downing R.N.)2016 (Given - Provider: Ar Mills R.N.) 0758 [...] system. 1734 (Given - Provider: Kelsey Downing R.N.) PRN Medication Order 09/24/2023 09/25/2023 09/26/2023 albuterol nebulizer solution 2.5 mg 2.5 mg, nebulization, Every 4 hours PRN, wheezing, Starting on Sun09/19/23 at 1707 baclofen tablet 2.5 mg (LIORESAL) (CANCELED) 2.5 mg, oral, 3 times daily PRN, muscle spasms, hiccups, Starting on 09/24/23 at 0950 1545 (Given - Provider: Amita Mercado R.N.) benzocaine-menthoL 15-3.6 mg per lozenge 1 lozenge [...] oral, 2 times daily, First dose on Sun09/22/23 at 1245, For 4 days Followed by [...] bedtime, First dose (after last modification) on 09/24/23 at 2100, Hold for loose stool Group [...] documented as of this encounter Care Teams Core Man Relationship Specialty Start Date End Date Elsewhere, Pcp PCP - General Internal Medicine 08/19/23 09/27/23 documented as of this encounter
--- OUTSIDE RECORDS SUMMARY | 2023-12-04 12:18 | XMS_ITS | Encounter Summary ---
Author Name Unknown Organization [facility] Address [address] [place] [address] Care Team Providers Care Rope Silica Machine Operator Name Role Phone Elsewhere, Pcp Primary Care Provider Unavailabl e Reason for Visit * Outpatient (Routine) - Closed Specialty Diagnoses / Procedures Referred By Sebas t Referred To Contact Cardiovascular Surgery Diagnoses Stenosis Aortic Valve Acquired Billy Segal APRN, C.N.P., D.N.P. [address] [place] [phone] [facility] Referral ID Status Reason Start Date Expiration Date Visits Re quested Visits Authorized [id number] Closed 08/22/2023 08/21/2024 1 1 Encounter Details Date Type Department Care Team (Latest Contact Info) Description 09/05/2023 2:30 PM CDT Comprehensive Visit Department of Cardiovascular Surgery in [place], [place] [address] [place] [phone] Sarah Miller M.D., M.P.H. [address] [place] [phone] Atrial Fibrillation Paroxysmal (HCC) (Primary Dx); Stenosis [...] your living situation today? I have a [facility] place to live 08/29/2023 Sex and Gender Information Value Date Recorded Sex Assigned at Male 08/29/2023 11:06 AM CDT Gender Identity Male 08/29/2023 11:06 AM CDT Sexual Orientation Straight 08/29/2023 11 :06 AM CDT documented as of this encounter H&P Notes * Sarah Miller M.D., M.P.H. - 09/05/2023 2:30 PM CDT I saw the patient in hospital when he was admitted with syncope. Patient is a pleasant 73-year-old male with severe aortic stenosis. His gradient is 44 valve area of 0.9 and ejection fraction 67%. Heunderwent a coronary angiogram which showed severe RCA disease. There is also mention of a diagonaldiseased but I have hard time visualizing that and also and was not concordant CT angiogram. He also has a paroxysmal atrial fibrillation captured on the loop recorder. Impression plan report: 1. Severe aortic stenosis 2. CKD IIIb with creatinine of 1.9 3. Type 2 diabetes 4. Paroxysmal atrial fibrillation based on the loop recorder data 5. Anemia of chronic disease I believe Sara has class one indication for aortic valve intervention. He is elected for a mechanical valve. We will perform a CABG x1 with a vein to RCA. If the time and situation allow will add a RFA ablation of the left atrium using the encompass device and performed a left atrial appendage ligation with a clip. I will review the angiogram with the cardiology and make sure that the diagonal is not diseased to require bypass. Plan: List for aortic valve replacement using mechanical prosthesis, possible root enlargement if necessary, CABG x1 with vein to RCA, endoscopic vein harvest, left atrial appendage ligation with AtriCure atrial clip and left atrial RFA ablation using encompass device. documented in this encounter Plan of Treatment Upcoming Encounters Date Type Department Care Team (Latest Contact Info) Description 12/21/2023 10:15 AM HAT FINISHING MATERIALS PREPARER Clinical Communication Virtual Review in [place], [place] [address] [place] [address] 12/24/2023 2:00 PM HAT FINISHING MATERIALS PREPARER Comprehensive Visit Department of Cardiovascular Medicine in [place], [place] [address] [place] [phone] Gudelia Soto M.D. [address] [place] [phone] 01/01/2024 3:45 PM HAT FINISHING MATERIALS PREPARER Comprehensive Visit Division of Hematology in [place], [place] [address] [place] [phone] Billy Segal APRN, C.N.P., D.N.P. 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
--- OUTSIDE RECORDS SUMMARY | 2023-12-04 12:18 | XMS_ITS | Encounter Summary ---
Author Name Unknown Organization [facility] Address [address] [place] [address] Care Team Providers Care Installation And Service Technician Name Role Phone Elsewhere, Pcp Primary Care Provider Unavailabl e Encounter Details Date Type Department Care Team ([facility] st Contact Info) Description 08/22/2023 Orders Only Department of Cardiovascular Medicine in [place], [place] [address] [place] [phone] Billy Segal APRN, C.N.P., D.N.P. [address] [place] [phone] Social History Tobacco Use Types Packs/Day Years [...] your living situation today? I have a [facility] place to live 08/29/2023 Sex and Gender Information Value Date Recorded Sex Assigned at Male 08/29/2023 11:06 AM CDT Gender Identity Male 08/29/2023 11:06 AM CDT Sexual Orientation Straight 08/29/2023 11 :06 AM CDT documented as of this encounter Plan of Treatment Upcoming Encounters Date Type Department Care Team (Latest Contact Info) Description 12/21/2023 10:15 AM VIDEO EFFECTS EDITOR Clinical Communication Virtual Review in [place], [place] [address] [place] [address] 12/24/2023 2:00 PM VIDEO EFFECTS EDITOR Comprehensive Visit Department of Cardiovascular Medicine in [place], [place] [address] [place] [phone] Gudelia Soto M.D. [address] [place] [phone] 01/01/2024 3:45 PM VIDEO EFFECTS EDITOR Comprehensive Visit Division of Hematology in [place], [place] [address] [place] [phone] Billy Segal APRN, C.N.P., D.N.P. [address] [place] [phone] documented as of this encounter Visit Diagnoses Not on filedocumented in this encounter Additional Health Concerns Assessment Noted Time PHQ-9 Depression Total Score: 0 08/20/20 23 12:00 PM CDT documented as of this encounter Care Teams Installation And Service 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
--- OUTSIDE RECORDS SUMMARY | 2023-12-04 12:18 | XMS_ITS | Encounter Summary ---
Author Name Unknown Organization [facility] Address [address] [place] [id number] Care Team Providers Care Bedspread Cutter Hand Name Role Phone Elsewhere, Pcp Primary Care Provider Unavailabl e Reason for Referral * MRI/CAT/PET Scan (Routine) - Closed Specialty Diagnoses / Procedures Referred By Sebas gimenez Referred To Contact Radiology Diagnoses Stenosis Aortic Valve Acquired Procedures CT Chest Angiogram with IV Contrast Billy Segal APRN, C.N.P., D.N.P. [address] [place] [phone] [facility] Referral ID Status Reason Start Date Expiration Date Visits Re quested Visits Authorized [id number] Closed 09/05/2023 10/05/2023 1 1 * Outpatient (Routine) - Authorized Specialty Diagnoses / Procedures Referred By Sebas t Referred To Contact Hematology Diagnoses Anemia Iron Deficiency Billy Segal APRN, C.N.PJarrett, D.N.P. [address] [place] [phone] [facility] Referral ID Status Reason Start Date Expiration Date V isits Requested Visits Authorized [id number] Authorized 08/22/2023 08/21/2024 1 1 * Outpatient (Routine) - Closed Specialty Diagnoses / Procedures Referred By Sebas gimenez Referred To Contact Cardiovascular Surgery Diagnoses Stenosis Aortic Valve Acquired Billy Segal APRN, C.N.PJarrett, D.N.P. [address] [place] [phone] [facility] Referral ID Status Reason Start Date Expiration Date Visits Re quested Visits Authorized [id number] Closed 08/22/2023 08/21/2024 1 1 Reason for Visit * Reason Onset Date Comments Pre-visit Testing Orders 08/22/2023 Encounter Details Date Type Department Care Team (Latest Contact Info) Description 08/22/2023 Clinical Communication Department of Cardiovascular Medicine in [place], [place] [address] [place] [address] Billy Segal APRN, C.N.PJarrett, D.N.P. [address] [place] [phone] Pre-visit Testing Orders Social History Tobacco Use Types Packs/Day Years Used Date Smoking Tobacco: Former Cigarettes Smokeless Tobacco: Never Comments:Smoked recreational ly over 40 years ago - a few cigarettes once in a while. Alcohol Use Standard Drinks/Week Comments Never 0 (1 standard drink = 0.6 oz pur e alcohol) PHQ-2 Answer Date Recorded PHQ-2 Score 0 08/20/2023 Depression Answer Date Recor ded PHQ-9 Total Score (max 27) 0 08/20 Nutrition Answer Date Recorded Nutrition: EVOO Fat Source Unknown 08/10 Nutrition: Servings of Fruits/Vegetables per Day Not on file 08/10/2023 Dental Answer Date Recorded Dental: Regular Dentist Unknown 08/10/20 23 Sex and Gender Information Value Date Recorded Sex Assigned at Male 08/29/2023 11:06 AM CDT Gender Identity Male 08/29/2023 11:06 AM CDT Sexual Orientation Straight 08/29/2023 11 :06 AM CDT documented as of this encounter Plan of Treatment Upcoming Encounters Date Type Department Care Team (Latest Contact Info) Description 12/21/2023 10:15 AM DIRECTOR OF ANALYTICAL DEVELOPMENT Clinical Communication Virtual Review in [place], [place] [address] [place] [address] 12/24/2023 2:00 PM DIRECTOR OF ANALYTICAL DEVELOPMENT Comprehensive Visit Department of Cardiovascular Medicine in [place], [place] [address] [place] [phone] Gudelia Soto M.D. [address] [place] [phone] 01/01/2024 3:45 PM DIRECTOR OF ANALYTICAL DEVELOPMENT Comprehensive Visit Division of Hematology in [place], [place] [address] [place] [phone] Billy Segal APRN, C.N.P., D.N.P. [address] [place] [phone] Scheduled Referrals Name Type Priority Associated Diagnoses Order Schedule Cardiovascular Surgery - General consult (clinic) Outpatient Referral Routine Stenosis Aortic Valve Acquired Expected: 08/22/2023 (Approximate), Expires: 11/22/2024 Hematology - General consult (clinic) Outpatient Referral Routine Anemia Iron Deficiency Expected: 08/22/2023 (Approximate), Expires: 11/22/2024 documented as of this encounter Results * CT Chest Angiogram with IV Contrast [...] calcification compatible with aortic stenosis. Billy Segal APRN, C.N.P., D.N.P. IMG CT PROCEDURES documented in this encounter Visit Diagnoses Diagnosis Anemia Iron Deficiency- Primary Stenosis Aortic Valve Acquired Stenosis Aortic Valve Acquired documented in this encounter Additional Health Concerns Assessment Noted Time PHQ-9 Depression Total Score: 0 08/20/20 23 12:00 PM CDT documented as of this encounter Care Teams Bedspread Cutter Hand Relationship Specialty Start Date End Date Elsewhere, Pcp PCP - General Internal Medicine 08/19/23 09/27/23 documented as of this encounter
--- OUTSIDE RECORDS SUMMARY | 2023-12-04 12:18 | XMS_ITS | Encounter Summary ---
Author Name Unknown Organization [facility] Address [address] [place] [id number] Care Team Providers Care [facility] Name Role Phone Elsewhere, Pcp Primary Care Provider Unavailabl e Reason for Referral * MRI/CAT/PET Scan (Routine) - Closed Specialty Diagnoses / Procedures Referred By Sebas gimenez Referred To Contact Radiology Diagnoses Stenosis Aortic Valve Acquired Procedures CT Chest Angiogram with IV Contrast Billy Segal APRN, C.N.PJarrett, D.N.P. [address] [place] [phone] [facility] Referral ID Status Reason Start Date Expiration Date Visits Re quested Visits Authorized [id number] Closed 09/05/2023 10/05/2023 1 1 Reason for Visit * MRI/CAT/PET Scan (Routine) - Closed Specialty Diagnoses / Procedures Referred By Contac ammy Referred To Contact Radiology Diagnoses Stenosis Aortic Valve Acquired Procedures CT Chest Angiogram with IV Contrast Billy Segal APRN, C.N.P., D.N.P. [address] [place] [phone] [facility] Referral ID Status Reason Start Date Expiration Date Visits Re quested Visits Authorized [id number] Closed 09/05/2023 10/05/2023 1 1 Encounter Details Date Type Department Care Team (Latest Contact Info) Description 09/05/2023 6:40 AM CDT - 09/05/2023 11:59 PM CDT Hospital Encounter Department of Radiology, [facility], in [place], [place] [address] [place] [phone] Billy Segal APRN, C.N.P., D.N.P. [address] [place] [address] Stenosis Aortic Valve Acquired Discharge Disposition: Home or Self Care Social [...] your living situation today? I have a [facility] place to live 08/29/2023 Sex and Gender [...] every morning before breakfast. 0 09/26/2023 10/26/2023 amiodarone (PACERONE) 200 mg tablet Take 1 tablet (200 mg total) by mouth 2 (two) times a day for 2 days, THEN 1 tablet (200 mg total) daily. 0 09/26/2023 09/26/2023 aspirin 81 mg chewable tablet Chew 1 tablet (81 mg total) daily. 30 tablet 11 08/22/2023 09/26/2023 atorvastatin (LIPITOR) 80 mg tablet Take 1 tablet (80 mg total) by mouth at bedtime. 30 tablet 11 08/22/2023 09/26/2023 finasteride (PROSCAR) 5 mg tablet Take 5 mg by mouth daily. 0 07/11/2023 09/26/2023 furosemide (LASIX) 20 mg tablet Take 1 tablet (20 mg total) by mouth daily for 5 days. 0 09/26/2023 09/26/2023 furosemide (LASIX) 20 mg tablet Take 1 tablet (20 mg total) by mouth daily for 5 days. 5 tablet 0 09/26/2023 09/26/2023 furosemide (LASIX) 20 mg tablet Take 1 tablet (20 mg total) by mouth daily for 10 days. 10 tablet 0 09/26/2023 10/12/2023 glipiZIDE (GLUCOTROL XL) 2.5 mg 24 hr tablet Take 1 tablet (2.5 mg total) by mouth daily with breakfast. 0 09/26/2023 09/26/2023 melatonin 10 mg tablet Take 1 tablet (10 mg total) by mouth at bedtime as needed (for sleep). 0 09/26/2023 09/26/2023 metFORMIN XR (GLUCOPHAGE-XR) 500 mg 24 hr tablet Take 1 tablet (500 mg total) by mouth 2 (two) times a day with meals. 60 tablet 11 08/24/2023 09/26/2023 metoprolol tartrate (LOPRESSOR) 25 mg tablet Take 1 tablet (25 mg total) by mouth 2 (two) times a day. 0 09/26/2023 09/26/2023 pantoprazole (PROTONIX) 40 mg EC tablet Take 1 tablet (40 mg total) by mouth every morning before breakfast. 30 tablet 0 08/23/2023 09/26/2023 pantoprazole (PROTONIX) 40 mg EC tablet Take 1 tablet (40 mg total) by mouth every morning before breakfast. 0 09/26/2023 09/26/2023 rOPINIRole (REQUIP) 0.5 mg tablet Take 0.5 mg by mouth 3 (three) times a day. 0 07/11/2023 09/26/2023 sennosides-docusate sodium (SENOKOT-S) 8.6-50 mg per tablet Take 2 tablets by mouth at bedtime as needed for constipation. 0 09/26/2023 09/26/2023 tamsulosin (FLOMAX) 0.4 mg 24 hr capsule Take 0.4 mg by mouth at bedtime. 0 07/11/2023 09/26/2023 warfarin (COUMADIN) 1 mg tablet Please take 1 mg on 09/26. Recheck INR on 09/27 with dosing to follow per SNF provider. 0 09/26/2023 09/26/2023 warfarin (JANTOVEN) 1 mg tablet Please take 1 tablet (1 mg) by mouth daily on 09/26 and 09/27. Recheck INR on 09/28 with dosing to follow per PCP. 100 tablet 0 09/26/2023 10/31/2023 documented as of this encounter Plan of Treatment Upcoming Encounters Date Type Department Care Team (Latest Contact Info) Description 12/21/2023 10:15 AM THREAD ROLLER Clinical Communication Virtual Review in [place], [place] [address] [place] [address] 12/24/2023 2:00 PM THREAD ROLLER Comprehensive Visit Department of Cardiovascular Medicine in [place], [place] [address] [place] [phone] Gudelia Soto M.D. [address] [place] [phone] 01/01/2024 3:45 PM THREAD ROLLER Comprehensive Visit Division of Hematology in [place], [place] [address] [place] [phone] Billy Segal APRN, C.N.P., D.N.P. [address] [place] [phone] documented as of this encounter Procedures Procedure Name Priority Date/Time Associated Diagnosis Comments CT CHEST ANGIOGRAM WITH IV CONTRAST RAD - Routine (most inpatients and all outpatients) 09/05/2023 7:26 AM CDT Stenosis Aortic Valve Acquired documented in this encounter Results * CT Chest Angiogram [...] aortic valve calcification compatible with aortic stenosis. Cata Richards APRN.N.Michaela, D.N.P. IMG CT PROCEDURES documented in this encounter Visit Diagnoses Diagnosis Stenosis Aortic Valve Acquired documented in this encounter Administered Medications Inactive Administered Medications - up to 3 most recent administrations Medication Order MAR Action Action Date Dose Rate Site iohexoL 350 mg iodine/mL solution 1-200 mL (OMNIPAQUE) 1-200 mL, intravenous, Once in imaging, contrast, Starting on Sun09/05/23 at 0654, For 1 dose, Imaging Protocol Orders, Dose per Radiant Medication Guidelines Given 09/05/2023 7:17 AM CDT 100 mL sodium chloride (PF) 0.9 % injection 1-100 mL 1-100 mL, intravenous, Once, On Sun09/05/23 at 0715, For 1 dose, Imaging Protocol Orders Given 09/05/2023 7:17 AM CDT 30 mL documented in this encounter Additional Health Concerns Assessment Noted Time PHQ-9 Depression Total Score: 0 08/20/20 12:00 PM CDT documented as of this encounter Care Teams [employer] Relationship Specialty Start Date End Date Elsewhere, Pcp PCP - General Internal Medicine 08/19/23 09/27/23 documented as of this encounter
--- OUTSIDE RECORDS SUMMARY | 2023-12-04 12:18 | XMS_ITS | Encounter Summary ---
Author Name Unknown Organization [facility] Address [address] [place] [id number] Care Team Providers Care Occupational Health Physician Name Role Phone Elsewhere, Pcp Primary Care Provider Unavailabl e Reason for Visit * Reason Comments Chest Pain * Auth/Cert (Routine) Specialty Diagnoses / Procedures Referred By Contac t Referred To Contact Diagnoses Stenosis Mitral And Aortic Stenosis Pain Chest Procedures ER Referral ID Status Reason Start Date Expiration Date Visits Re quested Visits Authorized [id number] 1 1 Encounter Details Date Type Department Care Team (Late st Contact Info) Description 08/19/2023 3:15 PM CDT - 08/22/2023 11:57 AM CDT Hospital Encounter [facility], [facility], [facility], Sixth Floor [address] [place] [phone] Norman Mcdonough D.O. [address] [place] [phone] Khushbu Bliss M.D. [address] [place] [phone] Jennie Enriquez M.D. [address] [place] [phone] Pain Chest (Primary Dx); Stenosis Mitral And Aortic Stenosis; Diabetes Mellitus Type 2 (HCC); Stroke (HCC); Hyperlipidemia On Treatment; 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 Glomerular Filtration Rate (GFR) 30 To 44 (HCC); Stenosis Aortic Valve Acquired Discharge Disposition: Home [...] Date Recorded Dental: Regular Dentist Unknown 08/10/20 Sex and Gender Information Value Date Recorded Sex Assigned at Male 08/29/2023 11:06 AM CDT Gender Identity Male 08/29/2023 11:06 AM CDT Sexual Orientation Straight 08/29/2023 11 :06 AM CDT documented as of this encounter Last Filed Vital Signs Vital Sign Reading Time Taken Comments Blood Pressure 124/91 08/22/2023 11:15 AM CDT Pulse 95 08/22/2023 8:00 AM CDT Temperature 36.8 ??C (98.2 ??F) 08/22/2023 11:15 AM C DT Respiratory Rate 18 08/22/2023 11:15 AM CDT Oxygen Saturation 96% 08/22/2023 8:00 AM CDT Inhaled Oxygen Concentration - - Weight 82.6 kg (182 lb 1.6 oz) 08/22/2023 6:00 A M CDT Height 173 cm (5' 8.11) 08/19/2023 8:30 PM CDT Body Mass Index 27.6 08/19/2023 8:30 PM CDT documented in this encounter Discharge Summaries * Billy Segal APRN, C.N.P., D.N.P. - 08/22/2023 10:35 AM CDT CARDIOLOGY HOSPITAL DISCHARGE SUMMARY DATE OF ADMISSION: 08/19/2023 DATE OF DISCHARGE: 08/22/2023 Discharge Provider: Jennie Enriquez M.D. Discharge Provider Team: RST CARD 4 PRINCIPAL DIAGNOSIS Pain Chest DISMISSAL DIAGNOSES #1 Symptomatic severe aortic valve stenosis, gradient 44 mmHg and valve area 0.9 cm2 #2 MANJEET on CKD 3 b (baseline creatinine 1.4 - 1.7), stable #3 Coronary artery disease #4 Chest wall pain #5 Prior history of stroke (left lateral basal ganglia infarct in April of 2019) #6 Paroxysmal atrial fibrillation, CHADS2 VASC score 6, not on anticoagulation - 1 event recorded on loop recorder ([id number]), lasting 8 minutes on 11/25/20 #7 Hypertension #8 Hyperlipidemia #9 Type 2 diabetes mellitus, most recent A1C 6.2 (08/22/23) #10 BPH #11 Iron deficiency anemia #12 Hypomagnesemia - repleted #13 GERD RECOMMENDATIONS FOR FOLLOW-UP APPOINTMENTS - Check BMP and CBC within a week of hospital discharge - Monitor hemoglobin and renal function closely - Monitor right radial site for healing, hematoma, and signs of infection - Lisinopril 2.5 mg daily was held on admission due to acute kidney injury. May resume once renal function back to baseline. Will need to be held prior to SAVR as well - Started on Pantoprazole for possible GERD - Recommend utilizing OTC triple cream or lidocaine patch for chest wall pain - CT angiogram of chest for aortic root measures for outpatient SAVR is arranged for 09/05/23 - Please follow-up with Hematology clinic for treatment of anemia prior to surgery - Follow-up with CV surgery outpatient for SAVR RESTRICTIONS: (Driving/work) 10 days FOLLOW-UP APPOINTMENTS Scheduled Appointments 09/05/2023 7:[address] [facility] 822 Radiology 09/19/2023 4:00 PM Sarah Miller M.D., M.P.H.; 01 [facility] Cardiovascular Surgery 09/19/2023 4:30 PM 01 [facility]; [facility] T[facility] Cardiovascular Surgery For appointment details refer to your Patient Appointment Guide. HOSPITAL COURSE Admission Weight: 86.5 kg Dismissal Weight: 82.6 kg BMI: Body mass index is 27.6 kg/m??. Mr. Harris is a 73-year-old gentleman who presented to [facility] emergency department with shortness of breath with minimal exertion in the setting of severe aortic valve stenosis. He has medical comorbidities including but not limited to severe aortic valve stenosis (mean gradient 44 mmHg mm Hg, JOANA 0.90 cm^2, per TTE 08/17/2023), hypertension, chronic kidney disease stage 3b (baseline creatinine 1.4-1.7), hyperlipidemia, BPH, iron deficiency anemia, and hx of CVA (left lateral basal ganglia infarct April 2019), and paroxysmal atrial fibrillation. Briefly, Mr. Harris has noted shortness of breath with mild exertion for the past 2 months. He was eating lunch and reportedly felt short of breath. He walked to the car and had an episode of mild 1-2/10 dull localized sternal pain that lasted up to 1 hour. He had no other associated symptoms. This prompted him to present to [facility] emergency department. Of note, he was seen by his local provider on 08/08/23, his Lisinopril dose was decreased to 2.5 mg daily at that time due to hypotension and was referred to [facility] for an echocardiogram to monitor his aortic valve stenosis. Echocardiogram on 08/17/23 demonstrated severe with gradient 44 mmHg and valve area 0.90 cm2, and LVEF of 67%. Of note, he had moderate with gradient 21 mmHg and valve area 1.43 in March of 2019. However, Mr. Harris stated that it was not shared to him that he has . In ED, 12-lead ECG demonstrated normal sinus rhythm without ischemic changes. Chest x-ray no infiltrate or pleural effusion. Laboratory on admission was remarkable for hemoglobin 11.7 and elevated creatinine 1.78. Troponin was mildly elevated but flat 18-18. He was given high dose Aspirin. He was admitted to the [facility] Cardiology 4 service for further monitoring and evaluation. Upon arrival to the floor, he was in stable condition. Mr. Harris reported shortness of breath with exertion and mild dull localized left sternal chest wall pain that is aggravated at times during and after meals and when talking. He had no chest pain with exertion or activity. His pain appeared to be more chest wall pain versus GERD. He was started on Pantoprazole. He had baseline mild lightheadedness for past couple years, but denied episodes of syncope or fall as a result of it. His clinical picture was felt to be correlated with and not ACS; thus, he was not heparinized or Plavix loaded. Discussion was had on TAVR vs SAVR for management of and Mr. Harris and his spouse was more interested in SAVR. CV surgery was consulted and recommended outpatient work-up with CT angiogram of chest for measurement of aortic root once renal function recovers and follow-up with CV surgery outpatient. Recommendations was made to follow-up with Hematology clinic for treatment of anemia prior tosurgery. His hospitalization was complicated by rising creatinine. Urinalysis was obtained to assess etiology and was unremarkable. Lisinopril was subsequently held and his creatinine remained stable. Given he had no prior ischemic work-up, he underwent diagnostic angiogram which demonstrated coronary artery disease but not multivessel. His coronaries will be intervened upon at the time of outpatient SAVR. Statin therapy was intensified. Mr. Harris had history of CVA in 2019. A Loop recorder was implanted on 05/05/19 to rule out atrial fibrillation due to CVA. He was not on placed any anticoagulation; however was placed on a high dose Aspirin. Upon review of his chart, loop recorder recorded only 1 episode of Atrial Fibrillation during the period of [id number], on 11/25/20 that lasted for 8 minutes. Given this was only 1 recorded episode, decision was made to not place him on anticoagulation and Aspirin was de-escalated to baby dose. He discharged to home on 08/22/23 in stable condition with close follow-up arranged with his primary care provider, CV surgery with further work-up for SAVR, and Hematology. TEST RESULTS PENDING AT DISCHARGE: Pending Labs Order Current Status Erythropoietin (EPO) In process Pernicious Anemia Stout In process DISCHARGE DISPOSITION: Home or Self Care [1] CONDITION ON DISCHARGE: Stable. DIET AT DISCHARGE: regular diet, 2 gram sodium and 2 liter fluid restriction PRIMARY PROVIDER Patient Care Team: Cresencio Medina M.B.B.S. as External Primary Care Physician (Internal Medicine) Primary Care Providers: Elsewhere, Pcp (General) No address on file Primary Care Provider Phone Number: None Primary Care Provider Fax Number: None MARGIN CODE I personally spent total time of >35 minutes with >50% spent with counseling/coordination of care, independent from other providers on our team. documented in this encounter Discharge Instructions * Discharge Instructions* Araceli Fitzgerald - 08/20/2023 10:32 AM CDT You were discharged from the T CARD 4 Service. Please identify this service name if you call withquestions after hospitalization. * Attachments The following attachments cannot be sent through Care Everywhere. * Pantoprazole (By mouth) (Beninese) * Acetaminophen (By mouth) (Beninese) documented in this encounter Medications at Time of Discharge Medication Sig Dispensed Refills Start Date End Date cholecalciferol 10 mcg (400 Unit) tablet Take 10 mcg by mouth daily. 0 ferrous sulfate 325 mg (65 mg iron) DR tablet Take 65 mg of iron by mouth daily. 0 aspirin 81 mg chewable tablet Chew 1 tablet (81 mg total) daily. 30 tablet 11 08/22/2023 09/26/2023 atorvastatin (LIPITOR) 80 mg tablet Take 1 tablet (80 mg total) by mouth at bedtime. 30 tablet 11 08/22/2023 09/26/2023 finasteride (PROSCAR) 5 mg tablet Take 5 mg by mouth daily. 0 07/11/2023 09/26/2023 metFORMIN XR (GLUCOPHAGE-XR) 500 mg 24 hr tablet Take 1 tablet (500 mg total) by mouth 2 (two) times a day with meals. 60 tablet 11 08/24/2023 09/26/2023 pantoprazole (PROTONIX) 40 mg EC tablet Take 1 tablet (40 mg total) by mouth every morning before breakfast. 30 tablet 0 08/23/2023 09/26/2023 rOPINIRole (REQUIP) 0.5 mg tablet Take 0.5 mg by mouth 3 (three) times a day. 0 07/11/2023 09/26/2023 tamsulosin (FLOMAX) 0.4 mg 24 hr capsule Take 0.4 mg by mouth at bedtime. 0 07/11/2023 09/26/2023 documented as of this encounter Progress Notes * Christina Lou, Pharm.D., R.Ph. - 08/22/2023 9:30 AM CDT Pharmacist Progress Note Reason for admission: chest pain and dyspnea PMH: severe , HTN, HLD, paroxysmal Afib (1-4 events between - on loop recorder), DM2, CKD 3,BPH, iron-def anemia, CVA 04/30. OBJECTIVE Neuro: CVA - ASA 81 qd. Ropinirole 0.5 tid. CV: HLD - atorvastatin 80 qhs. HTN/severe - holding lisinopril. Neph: Estimated Creatinine Clearance: 42.3 mL/min (A) (by C-G formula based on SCr of 1.87 mg/dL (H)). BL 1.4? Urol: finasteride 5 qd, tamsulosin. Heme: Anemia - iron qd. Endo: DM2 - ssi HgA1C 6.2 PPX: SQH, pantoprazole Medication Reconciliation: Held: metformin, tamsulosin Changed: aspirin New: none ASSESSMENT / PLAN Severe ; eval for valve replacement. S/p angiogram yesterday. Planning on SAVR, timing TBD. Increased atorvastatin to 80 mg. LDL was 58 mg/dL, recheck lipids in 6-12 weeks. Remote history of AFIB discovered on loop recorder [id number]. Continue monitor. Reduced aspirin from 325 mg to 81 mg MANJEET, dose adjust medications for eCrCl < 50 mL/min. Christina Lou, Pharm.D., R.Ph. * Dax Montez M.D., Ph.D. - 08/21/2023 11:08 AM CDT RST CARD 4 Progress Note Severe trileaflet aortic stenosis TTE (08/17/2023): LVEF 67% with concentric remodeling, MG 44 mmHg, and JOANA 0.90 cm2. Normal appearing IVC with inspiratory collapse. History of stroke (left lateral basal ganglia infarct April 2019) On full dose aspirin, transitioned to 81 mg this hospitalization S/p loop recorder, [id number]. Per chart showed 1-4 events of AF. However report not available and not on anticoagulation T2DM A1c (07/2023) 6.4% HTN HLD Concern for MANJEET on CKD3, improving Chronic anemia thought to be secondary to iron deficiency Mr. Harris is admitted for chest pain and progressive dyspnea on exertion in the setting of severe aortic stenosis. He did not have new complaints today. He was seen by Dr. Miller today and after discussion with the patient, he voiced preference for SAVR and is planned to have a MAZE procedure and LAAL for atrial fibrillation . His renal function has improved today and we will obtain a coronary angiogram. He will then follow up with Dr. Miller as an outpatient based on findings from his angiogram. Plan - angiogram today - will obtain labs for anemia and A1c per surgery recs Electronically signed by: Dax Montez M.D., Ph.D. 08/21/23 11:08 AM CDT Associated attestation - Jennie Enriquez M.D. - 08/21/2023 12:36 PM CDT I was the supervising physician in the delivery of service. 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 Miller, and we appreciate his assistance. We will proceed with coronary angiography today. As long as there are no high-risk findings that require urgent intervention, we will plan for dismissal from the hospital and return as an outpatient for surgical intervention with additional testing in the preop setting as recommended by Dr. Miller. * Billy Segal APRN, C.N.P., D.N.P. - 08/21/2023 10:22 AM CDT RST CARD 4 CARDIOLOGY INPATIENT PROGRESS NOTE SUBJECTIVE Mr. Harris was seen and examined on morning rounds. He reported localized dull left sided chest pain around 4 am when the nursing staff came by to check his blood pressure. He again had another pain while talking to Dr. Miller. He thinks pain is aggravated with eating and talking and when he gets excited, but not with exertion. No further questions or concerns. OBJECTIVE TELEMETRY NSR INTAKE/OUTPUT Past 24 hours: Intake/Output Summary (Last 24 hours) at 08/21/2023 0953 Last data filed at 08/21/2023 0413 Gross per 24 hour Intake 1020 ml Output 3025 ml Net -2005 ml Net Hospitalization: negative 2 L Admission Weight: 86.5 kg Today's weight: 83.8 kg Weight change since admit: negative 2.7 kg Body mass index is 28 kg/m??. VITAL SIGNS Temperature: [36.5 ??C-36.8 ??C] 36.5 ??C Heart Rate: [55-104] 65 Resp Rate: [11-28] 15 Blood Pressure: (113-152)/(59-73) 113/59 SpO2: [95 %-98 %] 97 % Weight: [83.8 kg] 83.8 kg BMI (Calculated): [28 kg/m??] 28 kg/m?? Pulse Rate: [58-77] 71 PHYSICAL EXAMINATION General: alert and oriented. Not in distress. Heart: regular rate and rhythm. 3/6 systolic murmur at sternal border. No JVD. Lungs: clear to auscultation. On room air. No cough. Abdomen: Obese. Soft, nontender, nondistended. Extremities: no peripheral edema. Positive peripheral pulses. DIAGNOSTICS I personally reviewed all radiology and labs from the past 24 hrs. Creatinine 1.82, GFR 39, Cystatin C by GFR 30, Cystatin C 1.96 ASSESSMENT / PLAN #1 Symptomatic severe aortic valve stenosis, gradient 44 mmHg and valve area 0.9 cm2 #2 MANJEET on CKD 3 b (baseline creatinine 1.4 - 1.7) #3 Chest wall pain #4 Prior history of stroke (left lateral basal ganglia infarct in April of 2019) #5 Paroxysmal atrial fibrillation, CHADS2 VASC score 6, not on anticoagulation - 1 event recorded on loop recorder ([id number]), lasting 8 minutes on 11/25/20 #6 Hypertension #7 Hyperlipidemia #8 Type 2 diabetes mellitus, most recent A1C 6.3 (05/01/23) #9 BPH #10 Iron deficiency anemia #11 Hypomagnesemia - repleted #12 GERD Mr. Harris is a 73 y.o. male who was admitted to [facility] Cardiology 4 service for shortness of breathand 1 episode of chest discomfort in the setting of recently diagnosed severe aortic valve stenosis. He has medical comorbidities as listed above. Mr. Harris has had intermittent episodes of dull chest pain that is localized to his left chest. It appears to be atypical and fits clinical picture of chest wall pain and may also be GERD related.Pain is not radiating. Pain is aggravated by talking, eating, and when he gets excited. He denied exertional chest pain. Given his clinical picture does not fit with ACS, he was not heparinized or asp irin/Plavix loaded. He was started on Pantoprazole to see if this helps resolve the pain that he has after eating. Discussion was had with him about treatment options for severe including JESSIKA versus SAVR. Patient stated that his son was born with a bicuspid aortic valve and had complications and underwent redo aortic replacement with Dr. Barcenas. Both him and his voiced preference to SAVR. CV surgery was consulted and his case was reviewed by Dr. Miller this morning, who has offered SAVR. Recommendation was made to proceed with coronary angiogram today. He will need some time to allow for his kidneys to recover but will ultimately need a CT angiogram of the chest with aortic valve measurements. This testing and SAVR will likely be done outpatient, unless the coronary angiogram shows multivessel disease and needs an inpatient evaluation. Dr. Miller also recommended that he be referred to anemia clinic for treatment before surgery. We had also emailed the Interventional Structural team initially about consideration of JESSIKA. Given that patient has strong preference for SAVR, we will not obtain further testings for JESSIKA. His hospital course was complicated by acute kidney injury. Baseline creatinine was 1.4 - 1.7. It was 1.78 on admission and martha to 1.92 yesterday. Urinalysis was obtained and was negative. He was net negative 2 liter yesterday without any diuretics, appears to be post-ATN. His creatinine today is stable at 1.82. We discussed coronary angiogram with patient and his , and they are amenable to this. He will proceed with coronary angiogram later today. Mr. Harris had CVA in 2019. He had a loop recorder implanted at that time to look for etiology. His CHADS2 VASC score is 6 and has not been on any anticoagulation. Upon review of his chart, there has only been 1 documented episode of Atrial Fibrillation lasting 8 minutes on 11/25/20 from [id number]. He was on high dose Aspirin. Given no benefits with high dose aspirin and higher risk for bleed, we had de-escalated his Aspirin to a baby dose today. PLAN: - Decrease Aspirin to 81 mg daily - Proceed with coronary angiogram today. No Plavix load - Check hemoglobin A1C tomorrow - SAVR (mechanical valve) likely outpatient if no multivessel disease on angio. Will need CT angiogram of chest with aortic root measurements. - Refer to anemia clinic for treatment before surgery - Continue Atorvastatin 40 mg daily, Pantoprazole 40 mg daily, Vitamin D3 10 mcg daily, Ferrous sulfate 65 mg daily, Finasteride 5 mg daily, Ropinirole 0.5 mg daily, Tamsulosin 0.4 mg daily - Check daily weight - Monitor I&O closely VTE: Heparin SQ 5,000 units TID Gi: Pantoprazole Tubes/lines: PIV Telemetry Indication: Code Status: Full Code Disposition: Home - self care Billy Segal APRN, C.N.P., D.N.P. 08/21/23 RST CARD 4 I personally spent a total 35 minutes providing and coordinating care today. * Billy Segal APRN, C.N.P., D.N.P. - 08/20/2023 3:36 PM CDT RST CARD 4 CARDIOLOGY INPATIENT PROGRESS NOTE SUBJECTIVE Mr. Harris was seen and examined on morning rounds. He reported noting mild tinge 1-2/10 dull pain in left sternum while resting, and after just having finished eating his breakfast. He denied noting pain with exertion while ambulating in hallway or immediately after it. His was present in the room during rounds. She states that he has high tolerance for pain and answers a lot of the question for him. OBJECTIVE TELEMETRY NSR. Bradycardia INTAKE/OUTPUT Past 24 hours: Intake/Output Summary (Last 24 hours) at 08/20/2023 0807 Last data filed at 08/20/2023 0600 Gross per 24 hour Intake 505 ml Output 650 ml Net -145 ml Net Hospitalization: negative 145 mls Admission Weight: 86.5 kg Today's weight: 84.3 kg Weight change since admit: negative 2.2 kg Body mass index is 28.17 kg/m??. VITAL SIGNS Temperature: [36.5 ??C-36.8 ??C] 36.8 ??C Heart Rate: [49-98] 73 Resp Rate: [6-36] 16 Blood Pressure: (118-149)/(58-79) 131/66 SpO2: [96 %-99 %] 96 % Height: [173 cm] 173 cm Weight: [84.3 kg-86.5 kg] 84.3 kg BSA (Calculated - sq m): [2.03 sq meters] 2.03 sq meters BMI (Calculated): [28.2 kg/m??-28.6 kg/m??] 28.2 kg/m?? Pulse Rate: [60-88] 74 PHYSICAL EXAMINATION General: alert and oriented. Not in apparent distress. Heart: regular rate and rhythm. 3/6 Systolic murmur sternal border. No JVD. Lungs: clear to auscultation. On room air. No cough. Abdomen: Obese. Soft, nontender, nondistended. Extremities: no peripheral edema. Positive peripheral pulses. DIAGNOSTICS I personally reviewed all radiology and labs from the past 24 hrs. BUN 23, creatinine 1.92, GFR 37, magnesium 1.9 ASSESSMENT / PLAN #1 Symptomatic severe aortic valve stenosis, gradient 44 mmHg and valve area 0.9 cm2 #2 MANJEET on CKD 3 b (baseline creatinine 1.4 - 1.7) #3 Prior history of stroke (left lateral basal ganglia infarct in April of 2019) #4 Paroxysmal atrial fibrillation, CHADS2 VASC score 6, not on anticoagulation - 1 event recorded on loop recorder ([id number]), lasting 8 minutes on 11/25/20 #5 Hypertension #6 Hyperlipidemia #7 Type 2 diabetes mellitus, most recent A1C 6.3 (05/01/23) #8 BPH #9 Iron deficiency anemia #10 Hypomagnesemia Mr. Harris is a 73 y.o. male who was admitted to [facility] Cardiology 4 service for shortness of breathand 1 episode of chest discomfort in the setting of recently diagnosed severe aortic valve stenosis. He has medical comorbidities as listed above. Briefly, Mr. Harris has noted shortness of breath with mild exertion for the past 2 months. Yesterday, he was eating lunch and reportedly felt short of breath. He walked to the car and had an episode of mild 1-2/10 dull sternal pain that lasted up to 1 hour. This prompted him to present to [facility] emergency department. He stated that the pain was not radiating and did not have other associated symptoms. Of note, he was seen by his local provider on 08/08/23, his Lisinopril dose was decreased to 2.5 mg daily due to hypotension and was referred to [facility] for an echocardiogram to monitor his aortic valve stenosis. Echocardiogram on 08/17/23 demonstrated severe with gradient 44 mmHg and valve area 0.90 cm2, and LVEF of 67%. Of note, he had moderate with gradient 21 mmHg and valve area 1.43 in March of 2019. However, Mr. Harris stated that it was not shared to him that he has . In ED, 12-lead ECG demonstrated normal sinus rhythm without ischemic changes. Chest x-ray no infiltrate or pleural effusion. Laboratory on admission was remarkable for hemoglobin 11.7 and elevated creatinine 1.78. Troponin was mildly elevated but flat 18-18. He was given high dose Aspirin. He was admitted to the [facility] Cardiology 4 service for further monitoring and evaluation. Upon arrival to the floor, he was in stable condition. He noted mild 1-2/10 dull sternal chest painat rest. This was after having just finished eating his breakfast. He reported that he notices thisshortness of breath and chest pain typically while eating or after eating. He ambulated in hallway this morning and had no exertional chest pain. He has baseline mild lightheadedness for past couple years, but denied episodes of syncope or fall as a result of it. Given the soonest Outpatient Valve clinic appointment is not available till November, we have emailed the Interventional Structural team for consideration of JESSIKA inpatient. We will place CV surgery consult as well for consideration of SAVR. Of note, he has not had prior ischemic work-up. His symptoms does not correlate with ACS; thus, was not heparinized or Plavix loaded. Will obtain Panorex today as part of JESSIKA. Will hold off obtaining TAVR CTA until tomorrow, given his rising creatinine of 1.92 this morning. His Lisinopril was held due to MANJEET. Additionally, Mr. Harris had CVA in 2019. He had a loop recorder implanted at that time to look for etiology. His CHADS2 VASC score is 6 and has not been on any anticoagulation. Upon review of his chart, there is only 1 documented episode of Atrial Fibrillation lasting for 8 minutes on 11/25/20 from [id number]. He remains on high dose Aspirin. PLAN: - HOLD Lisinopril 2.5 mg daily due to MANJEET - Start Pantoprazole 40 mg daily - Obtain urinalysis given MANJEET - Obtain Panorex today - Obtain TAVR CTA tomorrow if renal function improved - Obtain lipid panel tomorrow - CV surgery consulted for consideration of SAVR - Interventional Cardiology team emailed for consideration of JESSIKA - Replete magnesium 1 gram IV - Continue medications including Aspirin 325 mg daily, Atorvastatin 40 mg daily, Vitamin D3 10 mcg daily, Ferrous sulfate 65 mg daily, Finasteride 5 mg daily, Ropinirole 0.5 mg daily, Tamsulosin 0.4 mg daily - Check daily weight - Monitor I&O closely VTE: Heparin SQ 5,000 units TID Gi: Pantoprazole Tubes/lines: PIV Telemetry Indication: Code Status: Full Code Disposition: Home - self care Billy Segal APRN, C.N.P., D.N.P. 08/20/23 RST CARD 4 I personally spent a total 35 minutes providing and coordinating care today. * Jack Bustos, Pharm.D., R.Ph. - 08/20/2023 9:19 AM CDT Pharmacist Progress Note Reason for admission: chest pain and dyspnea PMH: severe , HTN, HLD, paroxysmal Afib (1-4 events between -22 on loop recorder), DM2, CKD 3,BPH, iron-def anemia, CVA 04/30. OBJECTIVE Neuro: CVA - ASA 325 qd. Ropinirole 0.5 tid. CV: HLD - atorvastatin 40 qhs. HTN/severe - holding lisinopril. Neph: Estimated Creatinine Clearance: 42.1 mL/min (A) (by C-G formula based on SCr of 1.92 mg/dL (H)). BL 1.4? Urol: finasteride 5 qd. Heme: Anemia - iron qd. Endo: DM2 - ssi PPX: none Medication Reconciliation: Held: metformin, tamsulosin Changed: none New: none ASSESSMENT / PLAN Severe ; eval for valve replacement Jack Bustos PharmRomeo, R.Ph. documented in this encounter H&P Notes * Jennie Enriquez M.D. - 08/20/2023 1:27 PM CDT This is a supervisory note. I met, interviewed, and examined Mr. Harris with the Cardiology 4 team. I agree with the history of present illness, past medical, surgical, social and family histories,as well as allergies, medications and review of systems as documented. I have also reviewed the laboratory data and imaging of the past 6 months, and vital signs since admission. I agree with the physical examination, assessment, and plan as documented by GEORGE Salinas in addition to what I havedocumented below. HISTORY OF PRESENT ILLNESS Mr. Harris is a 73-year-old man admitted for further evaluation of exertional dyspnea and chest pressure in the setting of severe aortic valve stenosis. He reports progressive symptoms of exertional dyspnea over the past 4-5 months. This has been most noticeable after eating. Yesterday he had an episode of chest pressure or discomfort shortly after eating and walking to his car. This is the first time that he has developed chest discomfort. Of note, he did have a transthoracic echo performed on Sunday which showed severe aortic valve stenosis with a mean gradient of 44 mmHg and a valve areaof 0.9 cm2. The patient and his read the results on the portal, and this was their first knowledge that the patient had aortic valve stenosis. However, an echocardiogram from March of 2019 showed moderate aortic valve stenosis. That echocardiogram was done during a workup for stroke, but the results were never discussed with the patient. He also had a loop recorder implanted and he reports this has shown a few episodes of atrial fibrillation. He is not receiving anticoagulation but has been placed on aspirin 325 mg daily. He has no symptoms of orthopnea, PND, or lower extremity edema. He has chronic lightheadedness, which has been present for years and is not changing. There is no history of syncope. He has known hypertension, hyperlipidemia, type 2 diabetes, and stage 3 chronic kidney disease due to diabetic nephropathy with a baseline creatinine between 1.4-1.7 over the past several years. In the emergency department, ECG showed no evidence of ischemia. Troponin was borderline elevated at 18 but without delta. Overnight he has been pain-free and hemodynamically stable. PHYSICAL EXAMINATION BP 130/69 (BP Location: Right arm;Upper, Patient Position: Sitting) Pulse 63 Temp 36.8 ??C (Oral) Resp 15 Ht 173 cm Wt 84.3 kg SpO2 98% BMI 28.17 kg/m?? General: Appears comfortable at rest. Vessels: Venous pressure is not elevated. Heart: Regular rhythm with a 3/6 systolic ejection murmur heard loudest at the upper sternal borderradiating to the suprasternal notch. Lungs: Clear bilaterally. Extremities: No edema. 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 His symptoms are most likely due to severe aortic valve stenosis. He describes progressive symptoms of exertional dyspnea over the past several months. There are no symptoms of heart failure and there have been no episodes of syncope. We had a preliminary discussion about TAVR vs SAVR. He is currently hemodynamically stable. We will have him ambulate and consider dismissal from the hospital with close follow-up in the Valve Clinic to discuss options for management. If we are unable to achieve an outpatient evaluation in a timely fashion, we will have to consult the inpatient Interventional team and CV surgery team to discuss option s. He will require coronary angiography preoperatively. The creatinine is elevated to 1.9, which isabove his baseline, so we will not proceed with angiography at this time unless we have to proceed with inpatient workup. We will attempt to obtain additional outside records from his loop recorder. If he is having paroxysmal atrial fibrillation in the setting of a prior stroke and with multiple other risk factors, anticoagulation is indicated. Jennie Enriquez M.D. 08/20/2023 * Dax Monetz M.D., Ph.D. - 08/20/2023 1:10 PM CDT RST CARD 4 Admission Note SUBJECTIVE CHIEF COMPLAINT / REASON FOR VISIT Chest pain and shortness of breath HISTORY OF PRESENT ILLNESS Jong Harris is a 73 y.o. male who presents with dyspnea on exertion and chest pain. He has known severe aortic stenosis. Mr. Harris has agnieszka feeling progressive dyspnea on exertion over the past couple months. He has been experiencing mild substernal chest pain primarily after eating that persists for about a half hour, but also at times after activity in the setting of shortness of breath and possible hypotension. He denies syncope but has been experiencing lightheadedness for several years. He does not have a prior history of ME but did have a stroke in 2019. After that he has been on full dose aspirin. OBJECTIVE VITAL SIGNS Temperature: [36.5 ??C-36.8 ??C] 36.8 ??C Heart Rate: [49-98] 62 Resp Rate: [6-36] 15 Blood Pressure: (118-149)/(58-79) 130/69 SpO2: [96 %-99 %] 98 % Height: [173 cm] 173 cm Weight: [84.3 kg-86.5 kg] 84.3 kg BSA (Calculated - sq m): [2.03 sq meters] 2.03 sq meters BMI (Calculated): [28.2 kg/m??-28.6 kg/m??] 28.2 kg/m?? Pulse Rate: [60-88] 63 PHYSICAL EXAMINATION Gen: no acute distress CV: late peaking crescendo murmur best heard at RUSB. Carotid upstroke is not delayed. JVP is not elevated Pulm: clear to auscultation Ext: No edema DIAGNOSTICS I have independently reviewed the labs, ECG, xray, diagnostics, and echo from EHR ASSESSMENT / PLAN Severe trileaflet aortic stenosis TTE (08/17/2023): LVEF 67% with concentric remodeling, MG 44 mmHg, and JOANA 0.90 cm2. Normal appearing IVC with inspiratory collapse. History of stroke (left lateral basal ganglia infarct April 2019) On full dose aspirin S/p loop recorder, [id number]. Per chart showed 1-4 events of AF. However report not available and not on anticoagulation T2DM A1c (07/2023) 6.4% HTN HLD Concern for MANJEET on CKD3 Cr (05/01) 1.73 -> (08/19) 1.78 -> (08/20) 1.92 Chronic anemia thought to be secondary to iron deficiency Mr. Harris is admitted for chest pain and progressive dyspnea on exertion in the setting of severe aortic stenosis. His chest pain is not exertional but is correlated with after meals, suggesting it may be due to his valvular disease due hypotension and increased post-prandial vagal tone. His evaluation shows mildly elevated troponins that are not changing or ST-T wave changes in ECG to suggestACS. He was able to walk around the floor today without symptoms but we were unable to schedule himoutpatient this month for evaluation for valve intervention. As a result we will engage CV surgery and interventional colleagues for inpatient evaluation. Plan - Holding lisinopril given rising creatinine. Will obtain UA and continue monitoring renal function. - CV surgery consult, will also contact the structural service Electronically signed by: Dax Montez M.D., Ph.D. 08/20/23 1:39 PM CDT * Palomo Flores P.A.-C. - 08/19/2023 8:26 PM CDT SUBJECTIVE REFERRAL SOURCE [facility], [facility], [place], [place] CHIEF COMPLAINT/REASON FOR VISIT Episodes of chest pain and dyspnea HISTORY OF PRESENT ILLNESS Mr. Harris is a 73-year-old gentleman with comorbidities including but not limited to severe aortic valve stenosis (mean gradient 44 mm Hg, JOANA 0.90 cm^2, per TTE 08/17/2023), hypertension, chronickidney disease stage 3, hyperlipidemia, BPH, iron deficiency anemia, and CVA (left lateral basal ganglia infarct April 2019). A Loop recorder was implanted May 05, 2019 to rule out atrial fibrillation due to CVA - upon discussion with the patient, there was anywhere between 1 to 4 events of atrial fibrillation over a period of 3 years. Loop recorder is no longer functioning at this point. Patient was placed on a regimen of aspirin 325 mg daily. We did have some trouble viewing the loop recorder reports in [facility] everywhere. Patient presented to the emergency room with an episode of chest discomfort around 12 noon. On further clarification of the story, the patient stated that he was a little short of breath while eatinglunch, then once he finished his meal, after walking to his car that is when he developed some chest discomfort. He denied syncope. Of note, over the past couple of months he has had multiple events of what he describes as being ???winded?? . He states he would experience this symptom primarily after walking up stairs. He does not recall experiencing chest pain prior to the events today. This is in the presence of known aortic stenosis (previously diagnosed as moderate back in 2019, but now hasprogressed to severe with mean gradient and aortic valve area as stated above per TTE August 17, 2023). He denied any nausea, vomiting, or diaphoresis. He did experience some lightheadedness. Denied any stroke-like symptoms (slurred speech, facial drooping, unilateral extremity weakness, or visual disturbances). He does not have any documented history of coronary artery disease. Specific findings of the TTE on August 17 revealed the following: Final Impressions 1. Normal left ventricular chamber [...] valve regurgitation. 12. Trivial tricuspid valve regurgitation. Of note previous echocardiogram in 2019 at outside institution revealed aortic valve mean gradient of 21.36 mm Hg with a valve area of 1.43 cm^2 (report available in [facility] everywhere). LVEF was approximately 70%. Electrocardiogram revealed normal sinus rhythm with no evidence of ST elevation or ischemia. High sensitivity troponins were obtained with a baseline of 18 and a 2 hour value of 18 with no significant Delta. Of note, this elevation is in the presence of known chronic kidney disease stage 3 with a creatinine of 1.78. Creatinine has ranged between 1.4-1.7 over the past year per review of labo ratory results in [facility] Everywhere. Chest x-ray revealed no focal pulmonary infiltrates or pleural effusions. Azygos fissure. Heart size within normal limits. Aortic calcification. Loop recorder in the anterior chest wall. Degenerativeand hypertrophic changes in the spine. Additional labs revealed hemoglobin 11.7, hematocrit 35.6, platelet count 159, white blood cell count 5.8, sodium 140, potassium 4.7, chloride 104, bicarbonate 27, anion gap 9, BUN 22, creatinine 1.78, estimated GFR 40, total calcium 9.1, glucose 143. He was subsequently admitted to the Cardiology service for further management and evaluation. Upon arrival to the floor he was asymptomatic and hemodynamically stable. REVIEW OF SYSTEMS A Complete review of systems was performed, with pertinent information in the history, and all others negative HOME MEDICATIONS: Current Outpatient Medications on File Prior to Encounter: aspirin 325 mg tablet, Take 325 mg by mouth daily., 08/19/2023 atorvastatin (LIPITOR) 40 mg tablet, , 08/18/2023 cholecalciferol 10 mcg (400 Unit) tablet, Take 10 mcg by mouth daily., 08/19/2023 ferrous sulfate 325 mg (65 mg iron) DR tablet, Take 65 mg of iron by mouth daily., 08/19/2023 finasteride (PROSCAR) 5 mg tablet, , 08/19/2023 metFORMIN XR (GLUCOPHAGE-XR) 500 mg 24 hr tablet, TAKE 1 TABLET BY MOUTH TWICE DAILY WITH BREAKFASTAND WITH SUPPER, 08/19/2023 rOPINIRole (REQUIP) 0.5 mg tablet, 0.5 mg 3 (three) times a day., 08/19/2023 tamsulosin (FLOMAX) 0.4 mg 24 hr capsule, 0.4 mg at bedtime., 08/18/2023 ALLERGIES No Known Allergies PAST MEDICAL HISTORY Type 2 diabetes Chronic kidney disease stage 3 Hypertension Hyperlipidemia Severe aortic valve stenosis (TTE August 17, 2023) BPH CVA 2019 Implantable loop recorder 2019 Iron deficiency anemia Basal cell carcinoma Squamous cell carcinoma Seborrheic dermatitis Actinic keratosis 1 to 4 events of atrial fibrillation on loop recorder between 2018 and 2021. SOCIAL HISTORY Social History Tobacco Use Smoking status: Former Types: Cigarettes Smokeless tobacco: Never Tobacco comments: Smoked recreationally over 40 years ago - a few cigarettes once in a while. Vaping Use Vaping Use: never used Substance Use Topics Alcohol use: Never Drug use: Yes Types: Other Comment: CBD gummies FAMILY HISTORY Family History Problem Relation Age of Onset Heart disease Father Lymphoma Mother Bicuspid aortic valve Son AVR - Aortic valve replacement Son Bicuspid aortic valve Daughter No Known Problems Maternal Grandfather OBJECTIVE VITAL SIGNS: Temperature: [36.5 ??C-36.8 ??C] 36.8 ??C Heart Rate: [63-85] 69 Resp Rate: [13-20] 18 Blood Pressure: (118-149)/(59-79) 146/71 SpO2: [97 %-99 %] 98 % Height: [173 cm] 173 cm Weight: [85.6 kg-86.5 kg] 85.6 kg BSA (Calculated - sq m): [2.03 sq meters] 2.03 sq meters BMI (Calculated): [28.6 kg/m??] 28.6 kg/m?? Pulse Rate: [60-88] 71 Body mass index is 28.6 kg/m??. PHYSICAL EXAMINATION General: Alert oriented x 3. NAD. Heart: RRR. 4/6 systolic murmur heard throughout the precordium but best at the right upper sternalborder which radiates into the carotids. No JVD. Radial pulses easily palpable bilaterally. Lungs: CTA bilaterally. Head: Normocephalic. No evidence of trauma. Eyes: PERRL. EOMs intact. ENT: No epistaxis. Throat: No exudate or erythema noted. Abdomen: Nontender, bowel sounds present upon auscultation. Extremities: No lower extremity edema bilaterally. Psychiatric: Mood and affect appropriate. LABORATORIES/DIAGNOSTICS: Recent Results (from the past 24 hour(s)) Basic Metabolic Panel Collection Time: 08/19/23 3:49 PM Result Value Potassium, P 4.7 Sodium, P 140 Chloride, P 104 Bicarbonate, P 27 Anion Gap, P 9 BUN (Blood Urea Nitrogen), P 22 Creatinine 1.78 (H) Estimated GFR (eGFR) 40 (L) Calcium, Total, P 9.1 Glucose, P 143 (H) CBC with Differential, Blood Collection Time: 08/19/23 3:49 PM Result Value Hemoglobin 11.7 (L) Hematocrit 35.6 (L) Erythrocytes 3.91 (L) MCV 91.0 RBC Distrib Width 12.6 Platelet Count 159 Leukocytes 5.8 Neutrophils 4.03 Lymphocytes 1.21 Monocytes 0.46 Eosinophils 0.10 Basophils 0.03 Troponin T, Baseline, 5th gen Collection Time: 08/19/23 3:49 PM Result Value Troponin T, Baseline, 5th gen 18 (H) Troponin T, 2h/6h, 5th Gen Collection Time: 08/19/23 6:00 PM Result Value Troponin T, 2 hr, 5th gen 18 (H) 2H Delta 0 2H Delta Interp Not Changing Troponin T, 6 hr, 5th gen CANCELED 6H Delta CANCELED 6H Delta % CANCELED ASSESSMENT / PLAN #1 Chest pain #2 Severe aortic valve stenosis #3 Hypertension #4 CKD stage 3, creatinine ranging from 1.4-1.7 over the past year Upon arrival to the floor the patient is asymptomatic. Aortic valve stenosis has progressed from moderate to severe since 2019. Outside institution Echocardiogram in 2019 showed a mean gradient of 21.36 mm Hg with a valve area of 1.43 cm^2 (report available in [facility] everywhere). As of August 17, 2023 echocardiogram done here revealed aortic valve area of 0.90 cm^2 and a mean gradient of 44 mmHg. From the description of his symptoms (chest pain, shortness of breath), this may be related to the severe aortic valve stenosis. Troponins were mildly elevated and flat (baseline 18, 2 hour 18 with no delta in the presence of known chronic kidney disease stage 3). He has no documented history of coronary artery disease. ECG revealed normal sinus rhythm. Additionally, Echo performed here on Aug 17 was negative for regional wall abnormalities and LVEF 67%. We will continue to monitor overnight. Further discussion to take place regarding potential intervention of the aortic valve(possible tavr vs savr). He does have multiple risk factors for coronary disease (hyperlipidemia, diabetes, hyperten joyce, age, male gender). If further intervention on the valve pursued, we will discuss potential preoperative coronary angiogram vs other imaging. #5 History of CVA 2019 #6 Paroxysmal atrial fibrillation (1 to 4 events noted between 2018 and 2021 on loop recorder) He is currently on a regimen of 325 mg of aspirin daily-we will continue this for now. We did have some technical difficulties reviewing the complete loop recorder reports from [facility] everywhere-we will continue to follow up and obtain full reports/information. He is currently in NSR. Will continue to monitor telemetry. #7 Hyperlipidemia Continue current regimen of atorvastatin. #8 Type 2 diabetes Hold metformin during hospitalization. Utilize SSI p.r.n.. Continue to monitor blood glucose levels. #9 BPH Continue finasteride and Flomax. #10 Iron deficiency anemia Continue ferrous sulfate supplementation. Code Status: Full Code Disposition: Home - self care Palomo Flores P.A.-C. 08/19/23 I personally spent a total of 75 minutes providing and coordinating care today. documented in this encounter Consult Notes * Sarah Miller M.D., M.P.H. - 08/21/2023 9:18 AM CDT History: Patient is a pleasant 73-year-old male who was admitted with shortness of breath and chest discomfort and was found to have severe aortic stenosis with a gradient of 44 and a valve area of 1.9. Ejection fraction is 67%. There is trivial AI, MR, TR. LVOT measures at 21. He has some lightheadedness but no syncope. He also has anterior chest wall pain that worsens with talking and eating but not with walking. This is more of a sharp pain and is somewhat reproducible by local pressure. Patient son just underwent redo aortic root replacement few weeks ago by Dr. Barcenas after failed tissue prosthesis. Physical examination: Patient awake and alert no acute distress. Extremities are warm and well perfused with no peripheral edema or varicosities. Impression plan report: 1. Severe aortic stenosis 2. CKD IIIb with creatinine of 1.9 3. Type 2 diabetes 4. Paroxysmal atrial fibrillation based on the loop recorder data 5. Anemia of chronic disease Patient has class one indication for aortic valve replacement. Options of TAVR versus SAVR was presented to the patient and given their experience with their son they prefer a mechanical valve and a SAVR approach. He has not had a coronary assessment. He has fairly stabilized during admission. So Ithlizy we can do this as an outpatient. He will need coronary assessment and if his creatinine improves a CT angiogram to help surgical planning. He may need a root enlargement if we can not get a adequate size valve implanted. Plan: Please obtain a coronary angiogram. With some interval to allow for kidney to recover it is CT angiogram of the chest with aortic valve measurements. We will list for aortic valve replacement with mechanical prosthesis, possible Maze procedure and left atrial appendage ligation. Refer to anemia clinic for treatment before surgery. Get HbA1c. * Beatriz Nunez APRN, C.N.P., M.S.N. - 08/20/2023 3:13 PM CDTAssociated Order(s): IP CONSULT TO CARDIOVASCULAR SURGERY SUBJECTIVE Chief Complaint: Aortic stenosis History of present illness: Mr. Harris is a 73 y.o. male admitted to [facility] 4 service on 08/19/2023 from the ED for evaluation and management of exertional dyspnea and chest pain in the setting of severe aortic stenosis per TTEon 08/17/2023. PMH: severe aortic valve stenosis (mean gradient 44 mm Hg, JOANA 0.90 cm^2, per TTE 08/17/2023), hypertension, chronic kidney disease stage 3, hyperlipidemia, BPH, iron deficiency anemia, and CVA (leftlateral basal ganglia infarct April 2019). Mr. Harris presented to the ED on 08/19 after an episode of chest pain with exertional dyspnea. Henotes that he has had progressive shortness of breath over the past few months. He has no documented coronary artery disease. In the ED troponins were 18-->18, ECG revealed NSR with no ST elevation, no pleural effusions noted on chest x-ray. Cardiovascular Surgery was consulted to see by [facility] 4 for evaluation and treatment of aortic stenosis. Upon assessment, Mr. Harris is resting comfortably in the chair with no complaints of dyspnea or chest pain. He tells me that he has been doing well up until about 3 months ago when he started to have dyspnea with exertion, especially when eating. His only episode of chest pain was on 08/19. He has had a stroke in the past and since then has had problems with lightheadedness. He is not on anti-coagulation. He does have some minimal right sided weakness. No recent Plavix. Inpatient Medications: aspirin, 325 mg, oral, Daily atorvastatin, 40 mg, oral, Daily at bedtime cholecalciferol, 10 mcg, oral, Daily ferrous sulfate, 65 mg of iron, oral, Daily finasteride, 5 mg, oral, Daily insulin aspart, 0-7 Units, subcutaneous, TID insulin aspart, 0-7 Units, subcutaneous, Daily at bedtime [Held by provider] lisinopriL, 2.5 mg, oral, Daily rOPINIRole, 0.5 mg, oral, TID sodium chloride, 3 mL, intravenous, Q12H DEMOND sodium chloride, 3 mL, intravenous, Q12H DEMOND tamsulosin, 0.4 mg, oral, Daily Outpatient Medications: No current facility-administered medications on file prior to encounter. Current Outpatient Medications on File Prior to Encounter Medication Sig aspirin 325 mg tablet Take 325 mg by mouth daily. atorvastatin (LIPITOR) 40 mg tablet Take 40 mg by mouth at bedtime. cholecalciferol 10 mcg (400 Unit) tablet Take 10 mcg by mouth daily. ferrous sulfate 325 mg (65 mg iron) DR tablet Take 65 mg of iron by mouth daily. finasteride (PROSCAR) 5 mg tablet Take 5 mg by mouth daily. lisinopriL (PRINIVIL,ZESTRIL) 2.5 mg tablet Take 2.5 mg by mouth daily. metFORMIN XR (GLUCOPHAGE-XR) 500 mg 24 hr tablet TAKE 1 TABLET BY MOUTH TWICE DAILY WITH BREAKFAST AND WITH SUPPER rOPINIRole (REQUIP) 0.5 mg tablet 0.5 mg 3 (three) times a day. tamsulosin (FLOMAX) 0.4 mg 24 hr capsule 0.4 mg at bedtime. Allergies: No Known Allergies Past Medical History: Past Medical History: Diagnosis Date Arrhythmia Atrial Fibrillation Unspecified (HCC) Diabetes Mellitus Type 2 (HCC) Hyperlipidemia Hypertension NOS Murmur Heart Stenosis Aortic Valve Acquired Stroke (HCC) Past Surgical History: History reviewed. No pertinent surgical history. Past Social History: Social History Tobacco Use Smoking status: Former Types: Cigarettes Smokeless tobacco: Never Tobacco comments: Smoked recreationally over 40 years ago - a few cigarettes once in a while. Vaping Use Vaping Use: never used Substance Use Topics Alcohol use: Never Drug use: Yes Types: Other Comment: CBD gummies REVIEW OF SYSTEMS Negative for seizure, history of thyroid issues, lung problems, history of blood clot or bleeding disorders, swallowing problems, history of stomach ulcer or bleed, liver issues, muscle or joint problems, vein stripping or vein ablation, current skin issues, or chronic skin ulcers. The patient has not had previous difficulties with anesthesia. No steroids or blood transfusions within the last three months. Denies pain at the current time. Last visit to the dentist unknown, no current dental issues. See HPI for pertinent positives. Reports: Echocardiogram (08/17/2023) 1. Normal left ventricular chamber size. 2. [...] valve regurgitation. 12. Trivial tricuspid valve regurgitation. Chest x-ray (08/19/2023) IMPRESSION: No focal pulmonary infiltrates or pleural effusions. Azygous fissure. Heart size within normal limits. Aortic calcification. Loop recorder in the anterior chest wall. Degenerative and hypertrophic changes in the spine. Labs Recent Results (from the past 24 hour(s)) Troponin T, Baseline, 5th gen Collection Time: 08/19/23 3:49 PM Result Value Troponin T, Baseline, 5th gen 18 (H) Troponin T, 2h/6h, 5th Gen Collection Time: 08/19/23 6:00 PM Result Value Troponin T, 2 hr, 5th gen 18 (H) 2H Delta 0 2H Delta Interp Not Changing Troponin T, 6 hr, 5th gen CANCELED 6H Delta CANCELED 6H Delta % CANCELED Basic Metabolic Panel Collection Time: 08/20/23 7:01 AM Result Value Potassium, S 4.8 Sodium, S 140 Chloride, S 107 Bicarbonate, S 25 Anion Gap 8 BUN (Blood Urea Nitrogen), S 23 Creatinine 1.92 (H) Estimated GFR (eGFR) 37 (L) Calcium, Total, S 8.7 (L) Glucose, S 100 OBJECTIVE PHYSICAL EXAM General: Alert and oriented, No acute distress. Cardiovascular: Regular rate and rhythm, 3/6 systolic murmur appreciated throughout pericardium. Respiratory: Lungs are clear to auscultation bilaterally Extremities: Warm, distal pulses intact. Trace edema present bilaterally in lower extremities. Vessels: No carotid bruit appreciated, no JVD. Abdomen: Active bowel sounds. Soft, nontender. 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 Harris is a 73 y.o. male admitted to [place] [address] for evaluation and management of chest pain and dyspnea in the setting of known severe aortic stenosis. [facility] for consideration for surgical aortic valve replacement. Patient will need his coronary arteries evaluated for CAD. This consult will be staffed by Dr. Miller. Please call the [facility] sales team recruiter pager [phone]) with any questions. documented in this encounter Nursing Notes * Kleber Sharma RMihir. - 08/22/2023 10:53 AM CDT Shift Goals: Clinical Goals for the Shift: Patient will remain NPO overnight. Identify possible barriers to meeting goals/advancing plan of care: None End of Shift Summary: Patient was [facility] with his . All VSS at time of discharge and surgical sites intact. All medications reviewed and education completed prior to discharge. All IVs removed and remote telemetry d/c prior to discharge. All belongings sent along with patient. * Reggie Robertson R.N. - 08/21/2023 6:20 AM CDT Problem: PAIN - ADULT Goal: PT VERBALIZES/DEMONSTRATES ADEQUATE COMFORT LEVEL OR BASELINE Outcome: Progressing Problem: KNOWLEDGE DEFICIT Goal: Patient/family/caregiver demonstrates understanding of disease process, treatment plan, medications, and discharge instructions Outcome: Progressing Problem: INFECTION - ADULT Goal: Absence of infection during hospitalization Outcome: Progressing Problem: SKIN/TISSUE INTEGRITY Goal: Skin/Tissue integrity maintained or improved Outcome: Progressing Goal: Oral and Nasal mucous membranes remain intact Outcome: Progressing Problem: SAFETY ADULT Goal: Maintain a safe environment Outcome: Progressing Problem: DISCHARGE PLANNING Goal: Patient discharge needs identified Outcome: Progressing Problem: SAFETY ADULT - RISK FOR FALL AND OR FALL INJURY Goal: Patient remains free from fall/fall injury Outcome: Progressing Shift Goals: Clinical Goals for the Shift: Patient will remain NPO overnight. Identify possible barriers to meeting goals/advancing plan of care: None End of Shift Summary: Goal met documented in this encounter ED Notes * Norman Mcdonough D.O. - 08/19/2023 5:26 PM CDT I have personally seen and examined this patient. I have fully participated in the care of this patient. I have reviewed all clinical information including history, physical exam, orders, and plan. Elia with the note of the resident. Assessment and Plan 73-year-old male patient presents the emergency department with complaints of chest discomfort thatbegan around 12 30 today. It has been recurring on and off throughout the afternoon. Patient has a known history of severe aortic stenosis. Echo was done here at [facility] last Sunday but he has nofollow-up appointments. They recently moved to [place]. They have been getting care in [place]. We have no medical records for comparison. He does have an underlying kidney dysfunction with today with a creatinine of 1.78. I was able to look at his lucius on his phone in his most recent creatinine was 1.66. He has hyperlipidemia as well as type 2 diabetes. Fairly significant risk for coronary disease. No documented or known history by the patient or the family of coronary disease. No previous stenting. No CABG. He states that with his when he takes flight of stairs or exerts himself hegets short of breath and has some chest discomfort that resolves with rest. However today while eating lunch she developed chest discomfort without any radiation from the left anterior chest. ECG demonstrates no obvious ST changes concerning for obvious ischemia or myocardial infarction however theST segment in 1 and aVL is flat but again no comparison to previous. He is describing unstable angina. Troponin mildly elevated at 18 with underlying kidney dysfunction will plan for a 2 hour delta because of that look for a trend. Will provide an aspirin and nitro as necessary. His disposition maybe admission to the hospital because of unstable angina versus outpatient cardiology appointment given his risk for further assessment of potential coronary disease. Heart score of 4-5 with high riskof MACE. Plan admission for eval by cards given high MACE risk and symptomatic A.S.. DIFFERENTIAL DIAGNOSES Unstable angina, musculoskeletal chest pain. Final Diagnoses: as of 08/19/231956 Pain Chest Stenosis Mitral And Aortic Stenosis My ECG interpretation is documented in ED Course. Norman Mcdonough D.O. 08/19/23 1731 Norman Mcdonough D.O. 08/19/231957 Norman Mcdonough D.O. 08/27/23 0910 * Mare Noble M.D. - 08/19/2023 5:14 PM CDT SUBJECTIVE CHIEF COMPLAINT/REASON FOR VISIT Chest Pain HISTORY OF PRESENT ILLNESS Mr. Harris is a 73-year-old gentleman with a past medical history of diabetes mellitus, dyslipidemia, stroke and hypertension presents today for chest pain. He describes that his chest pain startedtoday around 12:30 after lunch at rest. Additionally felt short of breath while eating. He reports that he has been having shooting pain in his chest intermittently with shortness of breath for a couple of months now, mostly on exertion. What changed today is that his chest pain happen at rest. He also feels occasionally lightheaded. He reports that he was seen for a cardiac ultrasound which showed aortic stenosis on Sunday. He describes having episodes of palpitation. He denies any headaches, blurry vision, fever, nausea, vomiting, or fever. REVIEW OF SYSTEMS Constitutional: Negative for fatigue and fever. Respiratory: Positive for cough and shortness of breath. Negative for apnea. Cardiovascular: Positive for chest pain and palpitations. Gastrointestinal: Negative for abdominal pain, diarrhea, nausea and vomiting. Genitourinary: Negative for enuresis, frequency and hematuria. Neurological: Positive for light-headedness. Negative for dizziness, syncope, facial asymmetry, speech difficulty and numbness. OBJECTIVE Initial Vitals Temperature 08/19/23 1521 36.5 ??C Pulse Rate 08/19/23 1521 88 Heart Rate 08/19/23 1645 78 Resp Rate 08/19/23 1521 18 Blood Pressure 08/19/23 1521 149/59 SpO2 08/19/23 1521 99 % Pain Score 08/19/23 1644 0 - No pain PHYSICAL EXAMINATION Constitutional: No distress. HENT: Head: Normocephalic and atraumatic. No signs of injury. Mouth/Throat: Mucous membranes are moist. Eyes: Conjunctivae and EOM are normal. Pupils are equal, round, and reactive to light. Cardiovascular: Regular rhythm, S1 normal and S2 normal. No tachycardia present. Murmur heard.Edema: no edema noted Pulmonary/Chest: Effort normal and breath sounds normal. There is normal air entry. No stridor. He has no rales. Abdominal: Soft. Bowel sounds are normal. There is no abdominal tenderness. There is no rebound andno guarding. Musculoskeletal: General: Normal range of motion. Cervical back: Normal range of motion. Neurological: Alert and oriented to person, place, and time. Skin: Skin is warm. He is not diaphoretic. ASSESSMENT/PLAN Mr. Harris this is a 73-year-old gentleman with a past medical history of diabetes mellitus, dyslipidemia, stroke in 2018 and hypertension who presents today for chest pain. His most recent echocardiogram done on Sunday showed severe aortic stenosis. His first Troponin was of 18 however his creatinine is 1.78. He has no medical records available in his chart, however recent creatinine was 1.66 last seen from his job on his phone. EKG demonstrates no ST changes concerning for ischemia. His current presentation could be concerning for unstable angina, or symptomatic aortic stenosis. Considering that he has a high MACE risk and symptomatic severe aortic stenosis he will be admitted for evaluation by cardiology. Final Diagnoses: as of 08/19/232049 Pain Chest Stenosis Mitral And Aortic Stenosis Mare Noble M.D. Resident 08/19/23 2227 * Rowena Oro R.N. - 08/19/2023 3:22 PM CDT Patient presents to the Emergency Department following an episode of chest pain at around 1230 today after eating lunch. Patient's family members states that he looked ashen and was hypotensive. Painhas since resolved. Patient has a history of aortic stenosis. Rowena Oro R.N. 08/19/23 1526 documented in this encounter Miscellaneous Notes * Hospital Course - Billy Segal APRN, C.N.PJarrett, D.N.P. - 08/19/2023 10:39 PM CDT Mr. Harris is a 73-year-old gentleman who presented to [facility] emergency department with shortness of breath with minimal exertion in the setting of severe aortic valve stenosis. He has medical comorbidities including but not limited to severe aortic valve stenosis (mean gradient 44 mmHg mm Hg, JOANA 0.90 cm^2, per TTE 08/17/2023), hypertension, chronic kidney disease stage 3b (baseline creatinine 1.4-1.7), hyperlipidemia, BPH, iron deficiency anemia, and hx of CVA (left lateral basal ganglia infarct April 2019), and paroxysmal atrial fibrillation. Briefly, Mr. Harris has noted shortness of breath with mild exertion for the past 2 months. He was eating lunch and reportedly felt short of breath. He walked to the car and had an episode of mild 1-2/10 dull localized sternal pain that lasted up to 1 hour. He had no other associated symptoms. This prompted him to present to [facility] emergency department. Of note, he was seen by his local provider on 08/08/23, his Lisinopril dose was decreased to 2.5 mg daily at that time due to hypotension and was referred to [facility] for an echocardiogram to monitor his aortic valve stenosis. Echocardiogram on 08/17/23 demonstrated severe with gradient 44 mmHg and valve area 0.90 cm2, and LVEF of 67%. Of note, he had moderate with gradient 21 mmHg and valve area 1.43 in March of 2019. However, Mr. Harris stated that it was not shared to him that he has . In ED, 12-lead ECG demonstrated normal sinus rhythm without ischemic changes. Chest x-ray no infiltrate or pleural effusion. Laboratory on admission was remarkable for hemoglobin 11.7 and elevated creatinine 1.78. Troponin was mildly elevated but flat 18-18. He was given high dose Aspirin. He was admitted to the [facility] Cardiology 4 service for further monitoring and evaluation. Upon arrival to the floor, he was in stable condition. Mr. Harris reported shortness of breath with exertion and mild dull localized left sternal chest wall pain that is aggravated at times during and after meals and when talking. He had no chest pain with exertion or activity. His pain appeared to be more chest wall pain versus GERD. He was started on Pantoprazole. He had baseline mild lightheadedness for past couple years, but denied episodes of syncope or fall as a result of it. His clinical picture was felt to be correlated with and not ACS; thus, he was not heparinized or Plavix loaded. Discussion was had on TAVR vs SAVR for management of and Mr. Harris and his spouse was more interested in SAVR. CV surgery was consulted and recommended outpatient work-up with CT angiogram of chest for measurement of aortic root once renal function recovers and follow-up with CV surgery outpatient. Recommendations was made to follow-up with Hematology clinic for treatment of anemia prior tosurgery. His hospitalization was complicated by rising creatinine. Urinalysis was obtained to assess etiology and was unremarkable. Lisinopril was subsequently held and his creatinine remained stable. Given he had no prior ischemic work-up, he underwent diagnostic angiogram which demonstrated coronary artery disease but not multivessel. His coronaries will be intervened upon at the time of outpatient SAVR. Statin therapy was intensified. Mr. Harris had history of CVA in 2019. A Loop recorder was implanted on 05/05/19 to rule out atrial fibrillation due to CVA. He was not on placed any anticoagulation; however was placed on a high dose Aspirin. Upon review of his chart, loop recorder recorded only 1 episode of Atrial Fibrillation during the period of [id number], on 11/25/20 that lasted for 8 minutes. Given this was only 1 recorded episode, decision was made to not place him on anticoagulation and Aspirin was de-escalated to baby dose. He discharged to home on 08/22/23 in stable condition with close follow-up arranged with his primary care provider, CV surgery with further work-up for SAVR, and Hematology. documented in this encounter Plan of Treatment Upcoming Encounters Date Type Department Care Team (Latest Contact Info) Description 12/21/2023 10:15 AM ELECT[employer]IC [employer]SEM[employer]ER Clinical Communication Virtual Review in [address] [address] 12/24/2023 2:00 PM [employer]ER Comprehensive Visit Department of Cardiovascular Medicine in [address] [phone] Gudelia Soto M.D. [address] [place] [phone] 01/01/2024 3:45 PM [employer] Comprehensive Visit Division of Hematology in [address] [phone] Billy Segal APRN, C.N.P., D.N.P. [address] [place] [phone] documented as of this encounter Procedures Procedure Name Priority Date/Time Associated Diagnosis Comments GLUCOSE POCT, B Routine 08/22/2023 6:47 AM CDT HC INTRINSIC FACTOR AB Routine 5:14 AM CDT PERNICIOUS ANEMIA CASCADE, S Routine 08/22/2023 5:14 AM CDT IRON AND TOT IRON-BINDING CAPACITY, S/P Routine 08/22/2023 5:14 AM CDT CBC WITH DIFFERENTIAL, B Timed 08/22/2023 5:14 AM CDT MAGNESIUM, S Routine 08/22/2023 5:14 AM CDT HEMOGLOBIN A1C, B Routine 08/22/2023 5:1 4 AM CDT GASTRIN, S Routine 08/22/2023 5:14 AM CDT FERRITIN, S Routine 08/22/2023 5:14 AM CDT COMPREHENSIVE METABOLIC PANEL, S/P Timed 08/22/2023 5:14 AM CDT ERYTHROPOIETIN (EPO), S Routine 08/22/2023 5:08 AM CDT GLUCOSE POCT, B Routine 08/21/2023 9:19 PM CDT GLUCOSE POCT, B Routine 08/21/2023 5:19 PM CDT CARDIAC CATHETERIZATION Routine 08/21/2023 3:16 PM CDT Pain Chest Stenosis Mitral And Aortic Stenosis Diabetes Mellitus Type 2 (HCC) Stroke (HCC) Hyperlipidemia On Treatment 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 Glomerular Filtration Rate (GFR) 30 To 44 (HCC) Stenosis Aortic Valve Acquired ADULT OXYGEN THERAPY Routine 08/21/2023 2:52 PM CDT GLUCOSE POCT, B Routine 08/21/2023 11:11 AM CDT ADULT OXYGEN THERAPY Routine 08/21/2023 8:01 AM CDT GLUCOSE POCT, B Routine 08/21/2023 6:56 AM CDT LIPID PANEL, S Timed 08/21/2023 4:52 AM CDT BASIC METABOLIC PANEL, S/P Timed 08/21/2023 4:52 AM CDT CYSTATIN C WITH EGFR Routine 08/21/2023 4:49 AM CDT GLUCOSE POCT, B Routine 08/20/2023 9:17 PM CDT ADULT OXYGEN THERAPY Routine 08/20/2023 8:00 PM CDT DX PANOREX TEETH RAD - Routine (most inpatients and all outpatients) 08/20/2023 6:23 PM CDT GLUCOSE POCT, B Routine 08/20/2023 4:53 PM CDT DIPSTICK, U Routine 08/20/2023 3:26 PM CDT MICROSCOPIC AUTOMATED Routine 08/20/2023 3:26 PM CDT PH, U Routine 08/20/2023 3:26 PM CDT OSMOLALITY, U Routine 08/20/2023 3:26 PM CDT URINALYSIS WITH MICROSCOPIC Routine 08/20/2023 3:26 PM CDT GLUCOSE POCT, B Routine 08/20/2023 11:55 AM CDT ADULT OXYGEN THERAPY Routine 08/20/2023 8:01 AM CDT MAGNESIUM, S Routine 08/20/2023 7:01 AM CDT BASIC METABOLIC PANEL, S/P Routine 08/20/2023 7:01 AM CDT CYSTATIN C WITH EGFR Routine 08/20/2023 6:59 AM CDT GLUCOSE POCT, B Routine 08/20/2023 6:58 AM CDT ADULT OXYGEN THERAPY Routine 08/19/2023 9:58 PM CDT ADULT OXYGEN THERAPY Routine 08/19/2023 9:58 PM CDT TROPONIN T, 2H/6H, 5TH GEN, P Timed 08/19/2023 6:00 PM CDT TROPONIN T, BASELINE, 5TH GEN, P STAT 08/19/2023 3:49 PM CDT CBC WITH DIFFERENTIAL, B STAT 08/19/2023 3:49 PM CDT BASIC METABOLIC PANEL, S/P STAT 08/19/2023 3:49 PM CDT DX CHEST AP OR PA AND LATERAL 2 VIEWS RAD - Semiurgent (Fast; most ED patients; some inpatients) 08/19/2023 3:35 PM CDT ECG STAT 08/19/2023 3:24 PM CDT documented in this encounter Results * Glucose, POCT (08/22/2023 6:47 AM CDT) Pathologist [facility] Glucose, POCT, B 127 70 - 140 mg/dL 08/22/2023 6:50 AM CDT PCLX Site Capillary 08/22/2023 6:50 AM CDT PCLX Blood 08/22/2023 6:47 AM CDT 08/22/2023 6:50 AM CDT Unknown Provider LAB POCT ORDERABLES- MANUAL POC [facility] [address] [place] [address], [facility] PCLX [facility] POC [address] [place] [address] * Gastrin (08/22/2023 5:14 AM CDT) Pathologist [facility] Gastrin, S 21 pg/mL 08/22/2023 6:26 PM CDT [facility] Comment: Not consistent with pernicious anemia. ----REFERENCE VALUE---- <100 Reference ranges valid for >= 8 hour fast. Blood 08/22/2023 5:14 AM CDT 08/22/2023 3:36 PM CDT Radha Richards APRNN.Michaela, D.N.P. LAB BLOOD NON ADD-ON Performing Organization Address [facility] de Phone Number [facility] [address] [place] [address] [facility] [address] [place] [address] * Intrinsic Factor Blocking Antibody, Serum (08/22/2023 5:14 AM CDT) [facility] Intrinsic Factor Blocking Ab, S Negative Negative 08/22/2023 1:13 PM CDT [facility] Comment:Gastrin test was per formed. Comment SEE COMMENT 08/22/2023 1:13 PM CDT [facility] Comment: Intrinsic Factor Blocking Antibody (IFBA) antibodies are absent in approximately 50% of individuals with pernicious anemia (PA). The absence of elevated IFBA antibodies does not rule out the presence of PA; further studies such as gastrin testing may be indicated. Blood 08/22/2023 5:14 AM CDT 08/22/2023 10:03 AM CDT Radha Richards APRNNJarrettPJarrett, D.N.P. LAB BLOOD NON ADD-ON Performing Organization Address [facility] de Phone Number [facility] [address] [place] [address] [facility] [address] [place] [address] * (ABNORMAL) Comprehensive Metabolic Panel (08/22/2023 5:14 AM CDT) [facility] Potassium, S 4.7 3.6 - 5.2 mmol/L 08/22/2023 6:30 AM CDT DTL Sodium, S 139 135 - 145 mmol/L 08/22/2023 6:30 AM CDT DTL Chloride, S 104 98 - 107 mmol/L 08/22/2023 6:30 AM CDT DTL Bicarbonate, S 25 22 - 29 mmol/L 08/22/2023 6:30 AM CDT DTL Anion Gap 10 7 - 15 08/22/2023 6:30 AM CDT DTL BUN (Blood Urea Nitrogen), S 24 8 - 24 mg/dL 08/22/2023 6:30 AM CDT DTL Creatinine 1.87(H) 0.74 - 1.35 mg/dL 08/22/2023 6:30 AM CDT DTL Estimated GFR (eGFR) 38(L) >=60 mL/min/BS A 08/22/2023 6:30 AM CDT DTL Comment: Estimated GFR calculated using the 2020 CKD_EPI creatinine equation. Calcium, Total, S 8.8 8.8 - 10.2 mg/dL 08/22/2023 6:30 AM CDT DTL Glucose, S 121 70 - 140 mg/dL 08/22/2023 6:30 AM CDT DTL Protein, Total, S 6.3 6.3 - 7.9 g/dL 08/22/2023 6:30 AM CDT DTL Albumin, S 3.8 3.5 - 5.0 g/dL 08/22/2023 6:30 AM CDT DTL Aspartate Aminotransferase (AST), S 17 8 - 48 U/L 08/22/2023 6:30 AM CDT DTL Alkaline Phosphatase, S 83 40 - 129 U/L 08/22/2023 6:30 AM CDT DTL Alanine Aminotransferase (ALT), S 15 7 - 55 U/L 08/22/2023 6:30 AM CDT DTL Bilirubin, Total, S 0.5 0.0 - 1.2 mg/dL 08/22/2023 6:30 AM CDT DTL Blood (Blood, Venous) 08/22/2023 5:14 AM CDT 08/22/2023 6:08 AM CDT Billy Segal APRN, C.N.P., D.N.P. LAB BLOOD ADD-ON [facility] [address] [place] [address] * Ferritin (08/22/2023 5:14 AM CDT) Pathologist [facility] Ferritin, S 243 31 - 409 mcg/L 08/22/2023 6:31 AM CDT DTL Blood (Blood, Venous) 08/22/2023 5:14 AM CDT 08/22/2023 6:06 AM CDT Billy Segal APRN C.N.P., D.N.P. LAB BLOOD ADD-ON [facility] [address] [place] [address] * (ABNORMAL) Iron and Total Iron-Binding Capacity (08/22/2023 5:14 AM CDT) [facility] Iron 72 50 - 150 mcg/dL 08/22/2023 6:31 AM CDT DTL Total Iron Binding Capacity 203(L) 250 - 400 mcg/dL 08/22/2023 6:31 AM CDT DTL Percent Saturation 35 14 - 50 % 08/22/2023 6:31 AM CDT DTL Blood (Blood, Venous) 08/22/2023 5:14 AM CDT 08/22/2023 6:06 AM CDT Billy Segal APRN C.N.P., D.N.P. LAB BLOOD ADD-ON [facility] [address] [place] [address] * (ABNORMAL) Pernicious Anemia Stout (08/22/2023 5:14 AM CDT) Pathologist [facility] Vitamin B12 Assay, S 123(L) 180 - 914 ng/L 08/22/2023 12:19 PM CDT [facility] Comment: Low B12; Intrinsic Factor Blocking Antibody test was performed. Blood (Blood, Venous) 08/22/2023 5:14 AM CDT 08/22/2023 10:03 AM CDT Billy Segal APRN, C.N.P., D.N.P. LAB BLOOD NON ADD-ON Performing Organization Address City/[facility]/ZIP Co de Phone Number [facility] [address] [place] [address] [facility] [address] [place] [address] * (ABNORMAL) Magnesium (08/22/2023 5:14 AM CDT) Pathologist [facility] Magnesium, S 2.4(H) 1.7 - 2.3 mg/dL 08/22/2023 6:31 AM CDT DTL Blood (Blood, Venous) 08/22/2023 5:14 AM CDT 08/22/2023 6:06 AM CDT Radha Richards APRNNKory, D.N.P. LAB BLOOD ADD-ON Performing Organization Address [facility] Co de Phone Number [facility] [address] [place] [address], [facility] [address] [place] [address] * (ABNORMAL) CBC with Differential, Blood (08/22/2023 5:14 AM CDT) Hemoglobin 11.5(L) 13.2 - 16.6 g/dL 08/22/2023 5:59 AM CDT DTL Hematocrit 35.0(L) 38.3 - 48.6 % 08/22/2023 5:59 AM CDT DTL Erythrocytes 3.86(L) 4.35 - 5.65 x10(12)/L 08/22/2023 5:59 AM CDT DTL MCV 90.7 78.2 - 97.9 fL 08/22/2023 5:59 AM CDT DTL RBC Distrib Width 12.6 11.8 - 14.5 % 08/22/2023 5:59 AM CDT DTL Platelet Count 165 135 - 317 x10(9)/L 08/22/2023 5:59 AM CDT DTL Leukocytes 6.2 3.4 - 9.6 x10(9)/L 08/22/2023 5:59 AM CDT DTL Neutrophils 4.08 1.56 - 6.45 x10(9)/L 08/22/2023 5:58 AM CDT DHPM Lymphocytes 1.38 0.95 - 3.07 x10(9)/L 08/22/2023 5:59 AM CDT DTL Monocytes 0.59 0.26 - 0.81 x10(9)/L 08/22/2023 5:59 AM CDT DTL Eosinophils 0.15 0.03 - 0.48 x10(9)/L 08/22/2023 5:59 AM CDT DTL Basophils <0.03 0.01 - 0.08 x10(9)/L 08/22/2023 5:59 AM CDT DTL Blood (Blood, Venous) 08/22/2023 5:14 AM CDT 08/22/2023 5:50 AM CDT Billy Segal APRN, C.N.P., D.N.P. LAB BLOOD ADD-ON [facility] [address] [place] [address], [facility] DTL [facility] [address] [place] [address] [facility] [address] [place] [address] * (ABNORMAL) Hemoglobin A1c (08/22/2023 5:14 AM CDT) Pathologist [facility] Hemoglobin A1c, B 6.2(H) 4.0 - 5.6 % 08/22/2023 7:37 AM CDT DTL Comment: Hemoglobin A1c values of 5.7-6.4 percent indicate an increased risk for developing diabetes mellitus. In diabetic patients, HbA1c goals should be discussed with healthcare provider. Blood (Blood, Venous) 08/22/2023 5:14 AM CDT 08/22/2023 5:49 AM CDT Radha Richards APRNNGrant., D.N.P. LAB BLOOD ADD-ON Performing Organization Address City/[facility]/ZIP Co de Phone Number [facility] [address] [place] [address], [facility] [address] [place] [address] * Erythropoietin (EPO) (08/22/2023 5:08 AM CDT) [facility] Erythropoietin (EPO), S 7.5 2.6 - 18.5 mIU/mL 08/22/2023 12:01 PM CDT [facility] Blood (Blood, Venous) 08/22/2023 5:08 AM CDT 08/22/2023 10:39 AM CDT Radha Richards APRNNJarrettP., D.N.P. LAB BLOOD ADD-ON Performing Organization Address City/[facility] Co de Phone Number [facility] [address] [place] [address] [facility] [address] [place] [address] * (ABNORMAL) Glucose, POCT (08/21/2023 9:19 PM CDT) Glucose, POCT, B 154(H) 70 - 140 mg/dL 08/21/2023 9:31 PM CDT PCLX Site Capillary 08/21/2023 9:31 PM CDT PCLX Last Intake 3-4 hours 08/21/2023 9:31 PM CDT PCLX Blood 08/21/2023 9:19 PM CDT 08/21/2023 9:31 PM CDT Unknown Provider LAB POCT ORDERABLES- MANUAL Performing Organization Address City/[facility]/ZIP Co de Phone Number [facility] [address] [place] [address], [facility] PCLX [facility] [address] [place] [address] * (ABNORMAL) Glucose, POCT (08/21/2023 5:19 PM CDT) Glucose, POCT, B 177(H) 70 - 140 mg/dL 08/21/2023 5:21 PM CDT PCLX Site Capillary 08/21/2023 5:21 PM CDT PCLX Last Intake 3-4 hours 08/21/2023 5:21 PM CDT PCLX Blood 08/21/2023 5:19 PM CDT 08/21/2023 5:21 PM CDT Unknown Provider LAB POCT ORDERABLES- MANUAL Performing Organization Address City/[facility]/ZIP Co de Phone Number [facility] [address] [place] [address], [facility] PCLX [facility] [address] [place] [address] * CORONARY ANGIOGRAPHY (08/21/2023 3:16 PM CDT) Anatomical Region Laterality Modality X-Ray Angiograph y 08/21/2023 3:01 PM CDT Narrative 08/22/2023 12:19 PM CDT For the complete report, see the Order-Level Documents. PROCEDURE TYPES 1. ??CORONARY ANGIOGRAPHY ?? FINAL DIAGNOSIS 1. ??Coronary artery atherosclerosis ?? 2. ??Pre OP ?? PRE-PROCEDURE DIAGNOSIS 1. ??Pain Chest ?? 2. ??Stenosis Mitral And Aortic Stenosis ?? 3. ??Diabetes Mellitus Type 2 (HCC) ?? 4. ??Stroke (HCC) ?? 5. ??Hyperlipidemia On Treatment ?? 6. 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 7. 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 CORONARY DIAGNOSTIC SUMMARY Coronary artery dominance is right. Normal left main coronary. ?? The middle left anterior descending artery is 20% obstructed by a discrete lesion. ?? The first diagonal branch is 80% obstructed by a discrete lesion. The distal segment is large size. ?? The proximal circumflex artery is 20% obstructed by a discrete lesion. The distal segment is normal size. ?? The first obtuse marginal is 10% obstructed by a tubular lesion. ?? The proximal right coronary artery is 80% obstructed by a discrete lesion. ?? The distal right coronary artery is 30% obstructed by a discrete lesion. ?? RADIATION DOSE DATA Procedure cumulative skin dose (mGy): 330.36 Procedure cumulative dose area product (Gy-cm2): 15.44 Fluoro Time (Min): 2.62 CONTRAST DOSE DATA iohexoL 350 mg iodine/mL solution (OMNIPAQUE): 40mL For the complete report, see the Order-Level Documents. Procedure Note Ezequiel Jack M.D. - 08/22/2023 For the complete report, see the Order-Level Documents. PROCEDURE TYPES 1. CORONARY ANGIOGRAPHY FINAL DIAGNOSIS 1. Coronary artery atherosclerosis 2. Pre OP PRE-PROCEDURE DIAGNOSIS 1. Pain Chest 2. Stenosis Mitral And Aortic Stenosis 3. Diabetes Mellitus Type 2 (HCC) 4. Stroke (HCC) 5. Hyperlipidemia On Treatment 6. 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 Normal left main coronary. The middle left anterior descending artery is 20% obstructed by a discretelesion. The first diagonal branch is 80% obstructed by a discrete lesion. Thedistal segment is large size. The proximal circumflex artery is 20% obstructed by a discrete lesion. Thedistal segment is normal size. The first obtuse marginal is 10% obstructed by a tubular lesion. The proximal right coronary artery is 80% obstructed by a discrete lesion. The distal right coronary artery is 30% obstructed by a discrete lesion. RADIATION DOSE DATA Procedure cumulative skin dose (mGy): 330.36 Procedure cumulative dose area product (Gy-cm2): 15.44 Fluoro Time (Min): 2.62 CONTRAST DOSE DATA iohexoL 350 mg iodine/mL solution (OMNIPAQUE): 40mL For the complete report, see the Order-Level Documents. Billy Segal APRN, C.N.P., D.N.P. CV CARDIAC CATH PROCEDURES * (ABNORMAL) Glucose, POCT (08/21/2023 11:11 AM CDT) Glucose, POCT, B 145(H) 70 - 140 mg/dL 08/21/2023 11:14 AM CDT PCLX Site Capillary 08/21/2023 11:14 AM CDT PCLX Last Intake NPO 08/21/2023 11:14 AM CDT PCLX Blood 08/21/2023 11:1 1 AM CDT 08/21/2023 11:15 AM CDT Unknown Provider LAB POCT ORDERABLES- MANUAL Performing Organization Address City/[facility]/ZIP Co de Phone Number [facility] [address] [place] [address], [facility] PCLX [facility] [address] [place] [address] * Glucose, POCT (08/21/2023 6:56 AM CDT) Glucose, POCT, B 127 70 - 140 mg/dL 08/21/2023 7:06 AM CDT PCLX Site Capillary 08/21/2023 7:06 AM CDT PCLX Blood 08/21/2023 6:56 AM CDT 08/21/2023 7:06 AM CDT Unknown Provider LAB POCT ORDERABLES- MANUAL Performing Organization Address City/[facility]/ZIP Co de Phone Number [facility] [address] [place] [address], [facility] PCLX [facility] [address] [place] [address] * Lipid Panel (08/21/2023 4:52 AM CDT) Triglycerides 94 mg/dL 08/21/2023 6:06 AM CDT DTL Comment: ----REFERENCE VALUE---- Normal: <150 mg/dL Borderline High: 150-199 mg/dL High: 200-499 mg/dL Very High: > or =500 mg/dL Cholesterol, Total 120 mg/dL 2022 6:06 AM CDT DTL Comment: ----REFERENCE VALUE---- Desirable: < 200 mg/dL Borderline High: 200 - 239 mg/dL High: > or = 240 mg/dL Cholesterol, LDL, Calculated 58 mg/dL 08/21/2023 6:06 AM CDT DTL Comment: ----REFERENCE VALUE---- Desirable: <100 mg/dL Above Desirable: 100-129 mg/dL Borderline High: 130-159 mg/dL High: 160-189 mg/dL Very High: >=190 mg/dL ----ADDITIONAL INFORMATION---- LDL cholesterol calculated using the Iglesias/NIH equation. Cholesterol, HDL, S 44 >=40 mg/dL 08/21/2023 6:06 AM CDT DTL Cholesterol, Non-HDL, Calculated 76 mg/dL 08/21/2023 6:06 AM CDT DTL Comment: ----REFERENCE VALUE---- Desirable: <130 mg/dL Above Desirable: 130-159 mg/dL Borderline High: 160-189 mg/dL High: 190-219 mg/dL Very High: > or =220 mg/dL Fasting (8 HR or more) y 08/21/2023 5:49 AM CDT DTL Blood (Blood, Venous) 08/21/2023 4:52 AM CDT 08/21/2023 5:49 AM CDT Billy Segal APRN, C.N.P., D.N.P. LAB BLOOD ADD-ON [facility] [address] [place] [address], [facility] DTHca [facility] [address] [place] [address] * (ABNORMAL) Basic Metabolic Panel (08/21/2023 4:52 AM CDT) Pathologist [facility] Potassium, S 4.9 3.6 - 5.2 mmol/L 08/21/2023 6:06 AM CDT DTL Sodium, S 141 135 - 145 mmol/L 08/21/2023 6:06 AM CDT DTL Chloride, S 106 98 - 107 mmol/L 08/21/2023 6:06 AM CDT DTL Bicarbonate, S 23 22 - 29 mmol/L 08/21/2023 6:06 AM CDT DTL Anion Gap 12 7 - 15 08/21/2023 6:06 AM CDT DTL BUN (Blood Urea Nitrogen), S 22 8 - 24 mg/dL 08/21/2023 6:06 AM CDT DTL Creatinine 1.82(H) 0.74 - 1.35 mg/dL 08/21/2023 6:06 AM CDT DTL Estimated GFR (eGFR) 39(L) >=60 mL/min/BSA 08/21/2023 6:06 AM CDT DTL Comment: Estimated GFR calculated using the 2020 CKD_EPI creatinine equation. Calcium, Total, S 8.9 8.8 - 10.2 mg/dL 08/21/2023 6:06 AM CDT DTL Glucose, S 131 70 - 140 mg/dL 08/21/2023 6:06 AM CDT DTL Blood (Blood, Venous) 08/21/2023 4:52 AM CDT 08/21/2023 5:49 AM CDT Billy Segal APRN, C.N.P., D.N.P. LAB BLOOD ADD-ON [facility] [address] [place] [address], [facility] [address] [place] [address] * (ABNORMAL) Cystatin C with Estimated GFR (08/21/2023 4:49 AM CDT) eGFR by Cystatin C 30(L) >60 mL/min/BSA 08/21/2023 9:05 AM CDT DTL Comment: Estimated GFR calculated using the [...] lower with the new assay. Cystatin C 1.96(H) 0.67 - 1.21 mg/L 08/21/2023 9:05 AM CDT DTL Blood (Blood, Venous) 08/21/2023 4:49 AM CDT 08/21/2023 8:13 AM CDT Cata Richards APRN.N.P., D.N.P. LAB BLOOD ADD-ON Performing Organization Address City/[facility]/ZIP Co de Phone Number [facility] [address] [place] [address], [facility] DTL [facility] [address] [place] [address] * Glucose, POCT (08/20/2023 9:17 PM CDT) [facility] Glucose, POCT, B 130 70 - 140 mg/dL 08/20/2023 9:19 PM CDT PCLX Site Capillary 08/20/2023 9:19 PM CDT PCLX Last Intake 3-4 hours 08/20/2023 9:19 PM CDT PCLX Blood 08/20/2023 9:17 PM CDT 08/20/2023 9:19 PM CDT Unknown Provider LAB POCT ORDERABLES- MANUAL Performing Organization Address City/[facility]/ZIP Co de Phone Number [facility] [address] [place] [address], [facility] PCLX [facility] [address] [place] [address] * DX Panorex Teeth (08/20/2023 6:23 PM CDT) Anatomical Region Laterality Modality Skull, Jaw, Neuroradiology R ST LOS, Neuroradiology ARZ LOS, Muskuloskeletal FLA LOS N/A Digital Radiography 08/20/2023 6:30 PM CDT Impressions 08/20/2023 6:33 PM CDT Multiple dental fillings and restorations along the maxillary and mandibular alveolar arches. Multiple nonvisualized molar teeth. Questionable carious changes along the maxillary incisors, suboptimally assessed due to overlying artifacts. Similarly, possible carious changes along the left mandibular central incisor. No definite periapical lucencies. No acute fractures. Narrative 08/20/2023 6:33 PM CDT EXAM: ??DX PANOREX TEETH Procedure Note Stan Azul M.B.B.S., MMED. - 08/20/2023 EXAM: DX PANOREX TEETH IMPRESSION: Multiple dental fillings and restorations along the maxillary andmandibular alveolar arches. Multiple nonvisualized molar teeth. Questionable carious changesalong the maxillary incisors, suboptimally assessed due to overlying artifacts. Similarly,possible carious changes along the left mandibular central incisor. No definite periapicallucencies. No acute fractures. Billy Segal APRN, C.N.P., D.N.P. IMG DIAGNOSTIC IMAGING PROCEDURES * Glucose, POCT (08/20/2023 4:53 PM CDT) [facility] Glucose, POCT, B 105 70 - 140 mg/dL 08/20/2023 4:55 PM CDT PCLX Site Capillary 08/20/2023 4:55 PM CDT PCLX Last Intake 3-4 hours 08/20/2023 4:55 PM CDT PCLX Blood 08/20/2023 4:53 PM CDT 08/20/2023 4:55 PM CDT Unknown Provider LAB POCT ORDERABLES- MANUAL [facility] [address] [place] [address], [facility] PCLX [facility] [address] [place] [address] * Dipstick, Urine (08/20/2023 3:26 PM CDT) Hemoglobin, QL, U Negative Negative 08/20/2023 3:53 PM CDT DTL Leukocyte Esterase, U Negative Negative 08/20/2023 3:53 PM CDT DTL Nitrite, U Negative Negative 08/20/2023 3:53 PM CDT DTL Ketone, U Negative Negative mg/dL 08/20/2023 3:53 PM CDT DTL Glucose, U Negative Negative mg/dL 08/20/2023 3:53 PM CDT DTL Urine 08/20/2023 3:26 PM CDT 08/20/2023 3:43 PM CDT Cata Richards APRN.N.PJarrett, D.N.P. LAB URINE ORDERABLES Performing Organization Address City/[facility]/ZIP Co de Phone Number [facility] [address] [place] [address] * pH, Urine (08/20/2023 3:26 PM CDT) pH, U 6.9 4.5 - 8.0 08/20/2023 4:2 4 PM CDT DTL Urine 08/20/2023 3:26 PM CDT 08/20/2023 3:43 PM CDT Cata Richards APRN.N.P., D.N.P. LAB URINE ORDERABLES [facility] [address] [place] [address] * Osmolality, Urine (08/20/2023 3:26 PM CDT) Osmolality, U 239 150 - 1150 mOsm/kg 08/20/2023 4:24 PM CDT DTL Urine 08/20/2023 3:26 PM CDT 08/20/2023 3:43 PM CDT Cata Richards APRN.N.P., D.N.P. LAB URINE ORDERABLES Performing Organization Address City/[facility] Co de Phone Number [facility] [address] [place] [address], [facility] [address] [place] [address] * Microscopic Automated (08/20/2023 3:26 PM CDT) Microscopy Normal 08/20/2023 3:5 3 PM CDT DTL Urine 08/20/2023 3:26 PM CDT 08/20/2023 3:43 PM CDT Radha Richards APRNN.PJarrett, D.N.P. LAB URINE ORDERABLES Performing Organization Address [facility] Co de Phone Number [facility] [address] [place] [address], [facility] [address] [place] [address] * Urinalysis with Microscopic: Urine, Midstream (08/20/2023 3:26 PM CDT) Source Urine, Urine, Midstream 08/20/2023 3:43 PM CDT DTL Color, U Yellow 08/20/2023 3:43 PM CDT DTL Clarity, U Clear 08/20/2023 3:43 PM CDT DTL Protein, U 5 <26 mg/dL 08/20/2023 4:21 PM CDT DTL Protein/Osmol ality 0.21 <0.42 ratio 08/20/2023 4:24 PM CDT DTL Predicted 24 HR Protein, U 212 <229 mg/24 h 08/20/2023 4:24 PM CDT DTL Predicted Range 67-668 mg/24 h 08/20/2023 4:24 PM CDT DTL Urine (Urine, Midstream) 08/20/2023 3:26 PM CDT 08/20/2023 3:43 PM CDT Billy Segal APRN, C.N.P., PetraNJarrettP. LAB URINE ORDERABLES Performing Organization Address [facility] Co de Phone Number [facility] [address] [place], [place] [id number] [place] [address] [facility] [address] [place] [address] * (ABNORMAL) Glucose, POCT (08/20/2023 11:55 AM CDT) Glucose, POCT, B 281(H) 70 - 140 mg/dL 08/20/2023 12:06 PM CDT PCLX Blood 08/20/2023 11:5 5 AM CDT 08/20/2023 12:06 PM CDT Unknown Provider LAB POCT ORDERABLES- MANUAL Performing Organization Address [facility] Co de Phone Number [facility] [address] [place] [address], [facility] PCLX [facility] [address] [place] [address] * Magnesium (08/20/2023 7:01 AM CDT) Magnesium, S 1.9 1.7 - 2.3 mg/dL 08/20/2023 8:09 AM CDT DTL Blood (Blood, Venous) 08/20/2023 7:01 AM CDT 08/20/2023 7:48 AM CDT Palomo Flores P.A.-C. LAB BLOOD ADD -ON Performing Organization Address City/[facility]/ZIP Co de Phone Number [facility] [address] [place] [address], [facility] [address] [place] [address] * (ABNORMAL) Basic Metabolic Panel (08/20/2023 7:01 AM CDT) Potassium, S 4.8 3.6 - 5.2 mmol/L 08/20/2023 8:09 AM CDT DTL Sodium, S 140 135 - 145 mmol/L 08/20/2023 8:09 AM CDT DTL Chloride, S 107 98 - 107 mmol/L 08/20/2023 8:09 AM CDT DTL Bicarbonate, S 25 22 - 29 mmol/L 08/20/2023 8:09 AM CDT DTL Anion Gap 8 7 - 15 08/20/2023 8:09 AM CDT DTL BUN (Blood Urea Nitrogen), S 23 8 - 24 mg/dL 08/20/2023 8:09 AM CDT DTL Creatinine 1.92(H) 0.74 - 1.35 mg/dL 08/20/2023 8:09 AM CDT DTL Estimated GFR (eGFR) 37(L) >=60 mL/min/BSA 08/20/2023 8:09 AM CDT DTL Comment: Estimated GFR calculated using the 2020 CKD_EPI creatinine equation. Calcium, Total, S 8.7(L) 8.8 - 10.2 mg/dL 08/20/2023 8:09 AM CDT DTL Glucose, S 100 70 - 140 mg/dL 08/20/2023 8:09 AM CDT DTL Blood (Blood, Venous) 08/20/2023 7:01 AM CDT 08/20/2023 7:48 AM CDT Palomo Flores P.A.-C. LAB BLOOD ADD -ON [facility] [address] [place] [address], [facility] [address] [place] [address] * (ABNORMAL) Cystatin C with Estimated GFR (08/20/2023 6:59 AM CDT) eGFR by Cystatin C 33(L) >60 mL/min/BSA 08/20/2023 1:33 PM CDT DTL Comment: Estimated GFR calculated using the [...] lower with the new assay. Cystatin C 1.84(H) 0.67 - 1.21 mg/L 08/20/2023 1:33 PM CDT DTL Blood (Blood, Venous) 08/20/2023 6:59 AM CDT 08/20/2023 1:01 PM CDT Cata Richards APRN.N.P., D.N.P. LAB BLOOD ADD-ON [facility] [address] [place] [address], [facility] [address] [place] [address] * Glucose, POCT (08/20/2023 6:58 AM CDT) Pathologist [facility] Glucose, POCT, B 107 70 - 140 mg/dL 08/20/2023 7:01 AM CDT PCLX Site Capillary 08/20/2023 7:01 AM CDT PCLX Blood 08/20/2023 6:58 AM CDT 08/20/2023 7:01 AM CDT Unknown Provider LAB POCT ORDERABLES- MANUAL [facility] [address] [place] [address], [facility] PCLX [facility] [address] [place] [address] * (ABNORMAL) Troponin T, 2h/6h, 5th Gen (08/19/2023 6:00 PM CDT) Pathologist [facility] Troponin T, 2 hr, 5th gen 18(H) <=15 ng/L 08/19/2023 6:25 PM CDT STMA 2H Delta 0 ng/L 08/19/2023 6:25 PM CDT STMA 2H Delta Interp Not Changing 08/19/2023 6:25 PM CDT STMA Troponin T, 6 hr, 5th gen CANCELED ng/L 08/19/2023 6:25 PM CDT STMA Comment:Result canceled by t he ancillary. 6H Delta CANCELED ng/L 08/19/2023 6:21 PM CDT STMA Comment:Result canceled by t he ancillary. 6H Delta % CANCELED % 08/19/2023 6:21 PM CDT STMA Comment:Result canceled by t he ancillary. Blood (Blood, Venous) 08/19/2023 6:00 PM CDT 08/19/2023 6:05 PM CDT Narrative [facility] - 08/19/2023 6:25 PM CDT Specimen Information: Specimen ID: [id number] Specimen Type: Blood Specimen Collection Start Date: 08/19/2023 ??6:00 PM Specimen Received Date: 08/19/2023 ??6:05 PM Specimen ID: [id number] Specimen Type: Blood Norman Mcdonough D.O. LAB BLOOD TROPO KATHI Performing Organization Address City/[facility]/[place] [address] * (ABNORMAL) Troponin T, Baseline, 5th gen (08/19/2023 3:49 PM CDT) Troponin T, Baseline, 5th gen 18(H) <=15 ng/L 08/19/2023 4:16 PM CDT STMA Blood (Blood, Venous) 08/19/2023 3:49 PM CDT 08/19/2023 3:56 PM CDT Norman Mcdonough D.O. LAB BLOOD TROPO KATHI Performing Organization Address City/[facility]/ZIP Co de Phone Number [facility] [address] [place] [phone] * (ABNORMAL) CBC with Differential, Blood (08/19/2023 3:49 PM CDT) Hemoglobin 11.7(L) 13.2 - 16.6 g/dL 08/19/2023 3:58 PM CDT STMA Hematocrit 35.6(L) 38.3 - 48.6 % 08/19/2023 3:58 PM CDT STMA Erythrocytes 3.91(L) 4.35 - 5.65 x10(12)/L 08/19/2023 3:58 PM CDT STMA MCV 91.0 78.2 - 97.9 fL 08/19/2023 3:58 PM CDT STMA RBC Distrib Width 12.6 11.8 - 14.5 % 08/19/2023 3:58 PM CDT STMA Platelet Count 159 135 - 317 x10(9)/L 08/19/2023 3:58 PM CDT STMA Leukocytes 5.8 3.4 - 9.6 x10(9)/L 08/19/2023 3:58 PM CDT STMA Neutrophils 4.03 1.56 - 6.45 x10(9)/L 08/19/2023 3:58 PM CDT DHPM Lymphocytes 1.21 0.95 - 3.07 x10(9)/L 08/19/2023 3:58 PM CDT STMA Monocytes 0.46 0.26 - 0.81 x10(9)/L 08/19/2023 3:58 PM CDT STMA Eosinophils 0.10 0.03 - 0.48 x10(9)/L 08/19/2023 3:58 PM CDT STMA Basophils 0.03 0.01 - 0.08 x10(9)/L 08/19/2023 3:58 PM CDT STMA Blood (Blood, Venous) 08/19/2023 3:49 PM CDT 08/19/2023 3:56 PM CDT Norman Mcdonough D.O. LAB BLOOD ADD-O N [facility] [address] [place], [place] [id number] [place] [address] STMA [facility] [address] [place] [address] [facility] [address] [place] [address] * (ABNORMAL) Basic Metabolic Panel (08/19/2023 3:49 PM CDT) Potassium, P 4.7 3.6 - 5.2 mmol/L 08/19/2023 4:12 PM CDT STMA Sodium, P 140 135 - 145 mmol/L 08/19/2023 4:12 PM CDT STMA Chloride, P 104 98 - 107 mmol/L 08/19/2023 4:12 PM CDT STMA Bicarbonate, P 27 22 - 29 mmol/L 08/19/2023 4:12 PM CDT STMA Anion Gap, P 9 7 - 15 08/19/2023 4:12 PM CDT STMA BUN (Blood Urea Nitrogen), P 22 8 - 24 mg/dL 08/19/2023 4:12 PM CDT [facility] Creatinine 1.78(H) 0.74 - 1.35 mg/dL 08/19/2023 4:12 PM CDT [facility] Estimated GFR (eGFR) 40(L) >=60 mL/min/BSA 08/19/2023 4:12 PM CDT [facility] Comment: Estimated GFR calculated using the 2020 CKD_EPI creatinine equation. Calcium, Total, P 9.1 8.8 - 10.2 mg/dL 08/19/2023 4:12 PM CDT [facility] Glucose, P 143(H) 70 - 140 mg/dL 08/19/2023 4:12 PM CDT [facility] Blood (Blood, Venous) 08/19/2023 3:49 PM CDT 08/19/2023 3:56 PM CDT Norman Mcdonough D.O. LAB BLOOD ADD-O N [facility] [address] [place] [address], [facility] ST[facility] [address] [place] [address] * DX Chest AP or PA and Lateral 2 Views (08/19/2023 3:35 PM CDT) Anatomical Region Laterality Modality Chest, Thoracic RST LOS, Tho racic ARZ LOS, Thoracic FLA LOS N/A Digital Radiography 08/19/2023 3:40 PM CDT Impressions 08/19/2023 3:41 PM CDT No focal pulmonary infiltrates or pleural effusions. Azygous fissure. Heart size within normal limits. Aortic calcification. Loop recorder in the anterior chest wall. Degenerative and hypertrophic changes in the spine. Narrative 08/19/2023 3:41 PM CDT EXAM: ??DX CHEST AP OR PA AND LATERAL 2 VIEWS Procedure Note Atif Jaramillo M.D. - 08/19/2023 EXAM: DX CHEST AP OR PA AND LATERAL 2 VIEWS IMPRESSION: No focal pulmonary infiltrates or pleural effusions. Azygous fissure.Heart size within normal limits. Aortic calcification. Loop recorder in the anterior chestwall. Degenerative and hypertrophic changes in the spine. Norman Mcdonough D.O. IMG DIAGNOSTIC IMAGING PROCEDURES * ECG 12 Lead (08/19/2023 3:24 PM CDT) Ventricular Rate ECG/Min 89 BPM MUSE MI Interval 130 ms MUSE QRSD Interval 78 ms MUSE QT Interval 358 ms MUSE QTC Interval 435 ms MUSE P [place] 40 degrees MUSE R [place] 36 degrees MUSE T Wave [place] 81 degrees MUSE 08/19/2023 3:24 PM CDT 08/19/2023 3:35 PM CDT Impressions MUSE - 08/19/2023 3:35 PM CDT Normal sinus rhythm Normal ECG No previous ECGs available Reviewed by MARIELA Khanna Narrative Procedure Note Duc Westfall M.D., Ph.D. - 08/19/2023 IMPRESSION: Normal sinus rhythm Normal ECG No previous ECGs available Reviewed by MARIELA Khanna Norman Mcdonough D.O. 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 Glomerular Filtration Rate (GFR) 30 To 44 (HCC) Hyperlipidemia On Treatment Benign Prostatic Hyperplasia Without Obstruction Atrial Fibrillation Paroxysmal (HCC) Diabetes Mellitus Type 2 (HCC) Stroke (HCC) Anemia Iron Deficiency Basal Cell Carcinoma Skin Other Parts Face Squamous Cell Carcinoma Skin Other Parts Face Pain Chest Stenosis Mitral And Aortic Stenosis Diabetes Mellitus Type 2 (HCC) Stroke (HCC) Hyperlipidemia On Treatment 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 Glomerular Filtration Rate (GFR) 30 To 44 (HCC) Stenosis Aortic Valve Acquired documented in this encounter Admitting Diagnoses Diagnosis Pain Chest documented in this encounter Administered Medications Inactive Administered Medications - up to 3 most recent administrations Medication Order MAR Action Action Date Dose Rate Site acetaminophen tablet 500 mg (TYLENOL) 500 mg, oral, Every 6 hours PRN, mild pain or score 1-3 of 10, fever, Notify service prior to first administration for fever, Starting on Sun08/19/23 at 2157 aspirin chewable tablet 243 mg 243 mg, oral, Once, On Sun08/21/23 at 1430, For 1 dose, Preprocedure (CV) Given 08/21/2023 2:14 PM CDT 243 mg aspirin chewable tablet 324 mg 324 mg, oral, Once, On Sun08/19/23 at 1715, For 1 dose Given 08/19/2023 5:37 PM CDT 324 mg aspirin chewable tablet 81 mg 81 mg, oral, Daily, First dose on Sun08/21/23 at 0900 Given 08/22/2023 8:06 AM CDT 81 mg Given 08/21/2023 8:02 AM CDT 81 mg aspirin tablet 325 mg 325 mg, oral, Daily, First dose on Sun08/20/23 at 0900 Given 08/20/2023 9:36 AM CDT 325 mg atorvastatin tablet 40 mg (LIPITOR) 40 mg, oral, Daily at bedtime, First dose on Sun08/19/23 at 2200 Given 08/20/2023 8:45 PM CDT 40 mg Given 08/19/2023 10:32 PM CDT 40 mg atorvastatin tablet 80 mg (LIPITOR) 80 mg, oral, Daily at bedtime, First dose (after last modification) on Sun08/21/23 at 2100 Given 08/21/2023 9:22 PM CDT [address] tablet 10 mg (DULCOLAX) 10 mg, oral, Daily PRN, constipation, Starting on 08/19/23 at 2157, PO route preferred. Constipation unrelieved by docusate sodium (COLACE) if ordered. If results needed within 2 hours give rectal suppository if ordered. Swallow whole. Do NOT crush, chew, or split tablet. bisacodyL suppository 10 mg (DULCOLAX) 10 mg, rectal, Daily PRN, constipation, Starting on 08/19/23 at 2157, PO route preferred. Constipation unrelieved by docusate sodium (COLACE) if ordered. If results needed within 2 hours - give rectal suppository. calcium carbonate chewable tablet 400 mg of calcium (TUMS) 400 mg of calcium, oral, Every 2 hour PRN, indigestion, Not to exceed 12 tablets in 24 hours, Starting on 08/19/23 at 2157, Doses listed are in mg of elemental calcium. Take with food. 500 mg calcium carbonate contains 200 mg of elemental calcium. cholecalciferol tablet 10 mcg (VITAMIN D3) 10 mcg, oral, Daily, First dose on Sun08/20/23 at 0900, cholecalciferol (vitamin D3) orderable was interchanged for cholecalciferol (vitamin D3) tablet/capsule Given 08/22/2023 8:06 AM C DT 10 mcg Given 08/21/2023 8:02 AM CDT 10 mcg Given 08/20/2023 9:36 AM CDT 10 mcg ferrous sulfate tablet 65 mg of iron 65 mg of iron, oral, Daily, First dose on Sun08/20/23 at 0900 Given 08/22/2023 8:06 AM CDT 65 mg of iron Given 08/21/2023 8:02 AM CDT 65 mg of iron Given 08/20/2023 9:36 AM CDT 65 mg of iron finasteride tablet 5 mg (PROSCAR) 5 mg, oral, Daily, First dose on Sun08/20/23 at 0900, See tube feeding guidelines for tube feeding administration instructions. Given 08/22/2023 8:06 AM CDT 5 mg Given 08/21/2023 8:02 AM CDT 5 mg Given 08/20/2023 9:36 AM CDT 5 mg heparin (porcine) injection 5,000 Units 5,000 Units, subcutaneous, 3 times daily, First dose on Sun08/20/23 at 2000 Given 08/22/2023 8:05 AM CDT 5,000 Units Right Upper Abdomen Given 08/21/2023 9:22 PM CDT 5,000 Units L eft Upper Arm (Back) Given 08/21/2023 4:17 PM CDT 5,000 Units R ight Lower Abdomen insulin aspart U-100 injection 0-7 Units (NovoLOG FlexPen) 0-7 Units, subcutaneous, 3 times daily, First dose on Sun08/20/23 at 0800, Insulin Scale: Mild Correction Scale, 180 - 219: 2 units, 220 - 259: 3 units, 260 - 299: 4 units, 300 - 339: 5 units, 340 - 379: 6 units, 380 - 399: 7 units, Greater than 399: Call service writing Insulin orders insulin aspart U-100 injection 0-7 Units (NovoLOG FlexPen) 0-7 Units, subcutaneous, Daily at bedtime, First dose on Sun08/20/23 at 2100, Insulin Scale: Modified Bedtime Correction Scale, 220-259: 3 units, 260-299: 4 units, 300-339: 5 units, 340-379: 6 units, 380-399: 7 units, Greater than 399: Call service writing insulin orders magnesium sulfate in D5W IVPB 1 g 1 g, intravenous, at 100 mL/hr, Administer over 60 Minutes, Once, On Sun08/20/23 at 0930, For 1 dose New Bag 08/20/2023 11:04 AM CDT 1 g 100 mL/hr pantoprazole DR tablet 40 mg (PROTONIX) 40 mg, oral, Daily before breakfast, First dose on Sun08/21/23 at 0700, Swallow whole. Do NOT crush, chew, or split tablet. Given 08/22/2023 6:42 AM CDT 40 mg Given 08/21/2023 6:57 AM CDT 40 mg rOPINIRole tablet 0.5 mg (REQUIP) 0.5 mg, oral, 3 times daily, First dose on Sun08/19/23 at 2200 Given 08/22/2023 8:06 AM CDT 0.5 mg Given 08/21/2023 9:21 PM CDT 0.5 mg Given 08/21/2023 4:17 PM CDT 0.5 mg sodium chloride 0.9 % injection 10 mL 10 mL, intravenous, As needed, line care, Starting on 08/19/23 at 1520, Peripheral Intravenous Catheter and Rapid Infusion Catheter, prior to blood sampling, post blood transfusion or post blood sampling sodium chloride 0.9 % injection 10 mL 10 mL, intravenous, As needed, line care, Starting on [place] 08/19/23 at 2154, Peripheral Intravenous Catheter and Rapid Infusion Catheter, prior to blood sampling, post blood transfusion or post blood sampling sodium chloride 0.9 % injection 3 mL 3 mL, intravenous, As needed, line care, Starting on [place] 08/19/23 at 1520, Prior to and following infusion and between multiple consecutive infusions: sodium chloride 0.9 % injection sodium chloride 0.9 % injection 3 mL 3 mL, intravenous, Every 12 hours scheduled, First dose on Sun08/19/23 at 2100, Peripheral Intravenous Catheter and Rapid Infusion Catheter, when no infusion to maintain patency Given 08/22/2023 9: 55 AM CDT 3 mL Given 08/21/2023 9:26 PM CDT 3 mL Given 08/20/2023 11:04 AM CDT 3 mL sodium chloride 0.9 % injection 3 mL 3 mL, intravenous, As needed, line care, Starting on [place] 08/19/23 at 2154, Prior to and following infusion and between multiple consecutive infusions: sodium chloride 0.9 % injection sodium chloride 0.9 % injection 3 mL 3 mL, intravenous, Every 12 hours scheduled, First dose on Sun08/20/23 at 0900, Peripheral Intravenous Catheter and Rapid Infusion Catheter, when no infusion to maintain patency Given 08/22/2023 9: 55 AM CDT 3 mL Given 08/21/2023 9:26 PM CDT 3 mL Given 08/21/2023 9:17 AM CDT 3 mL tamsulosin 24 hr capsule 0.4 mg (FLOMAX) 0.4 mg, oral, Daily, First dose on Sun08/20/23 at 0900, Swallow whole. Do NOT crush, chew or open capsule. Given 08/22/2023 8:06 AM CDT 0.4 mg Given 08/21/2023 8:02 AM CDT 0.4 mg Given 08/20/2023 9:36 AM CDT 0.4 mg documented in this encounter Active and Recently Administered Medications Times are shown in CDT. Scheduled Medication Order 08/20/2023 08/21/2023 08/22/2023 aspirin chewable tablet 243 mg (COMPLETED) 243 mg, oral, Once, On Sun08/21/23 at 1430, For 1 dose, Preprocedure (CV) 1414 (Given - Provider: Quin Toro R.N.) aspirin chewable tablet 81 mg 81 mg, oral, Daily, First dose on Sun08/21/23 at 0900 0802 (Given - Provider: Kleber Sharma RSammi)1404 (JAN Hold - Provider: Transfer Provider, Automatic - Reason: Patient not available)1604 ([facility] Unhold - Provider: Transfer Provider, Automatic) 0806 (Given - Provider: Kleber Sharam RMihir.) aspirin tablet 325 mg (CANCELED) 325 mg, oral, Daily, First dose on Sun08/20/23 at 0900 0936 (Given - Provider: Kassie Ahumada M.S., M.A., R.N., [facility]) atorvastatin tablet 40 mg (LIPITOR) (CANCELED) 40 mg, oral, Daily at bedtime, First dose on Sun08/19/23 at 2200 2045 (Given - Provider: Pamela Jason R.N.) 1404 (JAN Hold - Provider: Transfer Provider, Automatic - Reason: Patient not available)1604 (JAN Unhold - Provider: Transfer Provider, Automatic) atorvastatin tablet 80 mg (LIPITOR) 80 mg, oral, Daily at bedtime, First dose (after last modification) on Sun08/21/23 at 2100 2122 (Given - Provider: Reggie Robertson RJarrettN.) cholecalciferol tablet 10 mcg (VITAMIN D3) 10 mcg, oral, Daily, First dose on Sun08/20/23 at 0900, cholecalciferol (vitamin D3) orderable was interchanged for cholecalciferol (vitamin D3) tablet/capsule 0936 (Given - Provider: Kassie Ahumada M.S., M.A., R.N., [facility]) 0802 (Given - Provider: Kleber Sharma R.N.)1404 (JAN Hold - Provider: Transfer Provider, Automatic - Reason: Patient not available)1604 ([facility] Unhold - Provider: Transfer Provider, Automatic) 0806 (Given - Provider: Kleber Sharma R.N.) ferrous sulfate tablet 65 mg of iron 65 mg of iron, oral, Daily, First dose on Sun08/20/23 at 0900 0936 (Given - Provider: Kassie Ahumada M.S., M.Keri., R.N., [facility]) 0802 (Given - Provider: Kleber Sharma R.N.)1404 (JAN Hold - Provider: Transfer Provider, Automatic - Reason: Patient not available)1604 ([facility] Unhold - Provider: Transfer Provider, Automatic) 0806 (Given - Provider: Kleber Sharma R.N.) finasteride tablet 5 mg (PROSCAR) 5 mg, oral, Daily, First dose on Sun08/20/23 at 0900, See tube feeding guidelines for tube feeding administration instructions. 0936 (Given - Provider: Kassie Ahumada M.S., M.Keri., R.N., [facility]) 0802 (Given - Provider: Kleber Sharma R.N.)1404 ([facility] Hold - Provider: Transfer Provider, Automatic - Reason: Patient not available)1604 ([facility] Unhold - Provider: Transfer Provider, Automatic) 0806 (Given - Provider: Kleber Sharma R.N.) heparin (porcine) injection 5,000 Units 5,000 Units, subcutaneous, 3 times daily, First dose on Sun08/20/23 at 2000 2046 (Given - Provider: Pamela Jason R.N.) 0802 (Given - Provider: Kleber Sharma R.N.)1404 (JAN Hold - Provider: Transfer Provider, Automatic - Reason: Patient not available)1604 ([facility] Unhold - Provider: Transfer Provider, Automatic)1617 (Given - Provider: Kleber Sharma R.N.)2122 (Given - Provider: Reggie Robertson R.N.) 0805 (Given - Provider: Kleber Sharma R.N.) insulin aspart U-100 injection 0-7 Units (NovoLOG FlexPen) 0-7 Units, subcutaneous, 3 times daily, First dose on Sun08/20/23 at 0800, Insulin Scale: Mild Correction Scale, 180 - 219: 2 units, 220 - 259: 3 units, 260 - 299: 4 units, 300 - 339: 5 units, 340 - 379: 6 units, 380 - 399: 7 units, Greater than 399: Call service writing Insulin orders 0758 (Not Given - Provider: Kassie Ahumada M.S., M.A., R.N., [facility] - Reason: Order parameters not met)1250 (Not Given - Provider: Kassie Ahumada M.S., M.A., R.N., [facility] - Reason: See Provider Order - Comment: Pt ate, provider stated to not give insulin)1746 (Not Given - Provider: Yasmine Caba R.N. - Reason: Order parameters not met) 0746 (Not Given - Provider: Kleber Sharma R.N. - Reason: Order parameters not met)1125 (Not Given - Provider: Kleber Sharma R.N. - Reason: Order parameters not met)1404 ([facility] Hold - Provider: Transfer Provider, Automatic - Reason: Patient not available)1604 ([facility] Unhold - Provider: Transfer Provider, Automatic)1725 (Not Given - Provider: Kleber Sharma R.N. - Reason: Order parameters not met) 0845 (Not Given - Provider: Kleber Sharma R.N. - Reason: Order parameters not met) insulin aspart U-100 injection 0-7 Units (NovoLOG FlexPen) 0-7 Units, subcutaneous, Daily at bedtime, First dose on Sun08/20/23 at 2100, Insulin Scale: Modified Bedtime Correction Scale, 220-259: 3 units, 260-299: 4 units, 300-339: 5 units, 340-379: 6 units, 380-399: 7 units, Greater than 399: Call service writing insulin orders 2159 (Not Given - Provider: Pamela Jason R.N. - Reason: Order parameters not met) 1404 (JAN Hold - Provider: Transfer Provider, Automatic - Reason: Patient not available)1604 ([facility] Unhold - Provider: Transfer Provider, Automatic)2120 (Not Given - Provider: Reggie Robertson R.N. - Reason: Order parameters not met) lisinopriL tablet 2.5 mg (PRINIVIL,ZESTRIL) 2.5 mg, oral, Daily, First dose on Sun08/20/23 at 0900, On hold since Sun08/20/2023 at 0718 until manually unheld 0718 (Held by provider - Provider: Billy Segal APRN, C.N.P., D.N.P. - Comment: Review lab)0900 (Dose Auto Held) 0900 (Not Given - Provider: Kleber Sharma R.N. - Reason: See Provider Order) 0900 (Not Given - Provider: Kleber Sharma R.N. - Reason: See Provider Order)1402 (Unheld by provider - Provider: Discharge Provider, Automatic) magnesium sulfate in D5W IVPB 1 g (COMPLETED) 1 g, intravenous, at 100 mL/hr, Administer over 60 Minutes, Once, On Sun08/20/23 at 0930, For 1 dose 1104 (New Bag - Provider: Kassie Ahumada M.S., M.A., R.N., [facility]) pantoprazole DR tablet 40 mg (PROTONIX) 40 mg, oral, Daily before breakfast, First dose on Sun08/21/23 at 0700, Swallow whole. Do NOT crush, chew, or split tablet. 0657 (Given - Provider: Reggie Robertson R.N.)1404 (JAN Hold - Provider: Transfer Provider, Automatic - Reason: Patient not available)1604 ([facility] Unhold - Provider: Transfer Provider, Automatic) 0642 (Given - Provider: Reggie Robertson R.N.) rOPINIRole tablet 0.5 mg (REQUIP) 0.5 mg, oral, 3 times daily, First dose on Sun08/19/23 at 2200 0936 (Given - Provider: Kassie Ahumada M.S., M.A., R.N., [facility])1610 (Given - Provider: Yasmine Caba R.N.)2045 (Given - Provider: Pamela Jason R.N.) 0802 (Given - Provider: Kleber Sharma R.N.)1404 ([facility] Hold - Provider: Transfer Provider, Automatic - Reason: Patient not available)160 ([facility] Unhold - Provider: Transfer Provider, Automatic)1617 (Given - Provider: Kleber Sharma R.N.)212 (Given - Provider: Reggie Robertson R.N.) 0806 (Given - Provider: Kleber Sharma R.N.) sodium chloride 0.9 % injection 3 mL 3 mL, intravenous, Every 12 hours scheduled, First dose on Sun08/19/23 at 2100, Peripheral Intravenous Catheter and Rapid Infusion Catheter, when no infusion to maintain patency 1104 (Given - Provider: Kassie Ahumada M.S., M.A., R.N., [facility])2052 (Not Given - Provider: Pamela Jason R.N. - Reason: Other - Comment: Duplicate order) 0918 (Not Given - Provider: Kleber Sharma R.N. - Reason: Order parameters not met)1404 ([facility] Hold - Provider: Transfer Provider, Automatic - Reason: Patient not available)160 ([facility] Unhold - Provider: Transfer Provider, Automatic)2125 (Given - Provider: Reggie Robertson R.N.) 0955 (Given - Provider: Kleber Sharma R.N.) sodium chloride 0.9 % injection 3 mL 3 mL, intravenous, Every 12 hours scheduled, First dose on Sun08/20/23 at 0900, Peripheral Intravenous Catheter and Rapid Infusion Catheter, when no infusion to maintain patency 1103 (Given - Provider: Kassie Ahumada M.S., M.A., R.N., [facility])205 (Given - Provider: Pamela Jason R.N.) 0917 (Given - Provider: Kleber Sharma R.N.)1404 ([facility] Hold - Provider: Transfer Provider, Automatic - Reason: Patient not available)1604 ([facility] Unhold - Provider: Transfer Provider, Automatic)2126 (Given - Provider: Reggie Robertson RJarrettNJarrett) 0955 (Given - Provider: Kleber Sharma R.N.) tamsulosin 24 hr capsule 0.4 mg (FLOMAX) 0.4 mg, oral, Daily, First dose on 08/20/23 at 0900, Swallow whole. Do NOT crush, chew or open capsule. 0936 (Given - Provider: Kassie Ahumada M.S., M.A., R.N., [facility]) 0802 (Given - Provider: Kleber Sharma R.N.)1404 ([facility] Hold - Provider: Transfer Provider, Automatic - Reason: Patient not available)1604 ([facility] Unhold - Provider: Transfer Provider, Automatic) 0806 (Given - Provider: Kleber Sharma R.N.) PRN Medication Order 08/20/2023 08/21/2023 08/22/2023 acetaminophen tablet 500 mg (TYLENOL) 500 mg, oral, Every 6 hours PRN, mild pain or score 1-3 of 10, fever, Notify service prior to first administration for fever, Starting on 08/19/23 at 2157 1404 ([facility] Hold - Provider: Transfer Provider, Automatic - Reason: Patient not available)1604 ([facility] Unhold - Provider: Transfer Provider, Automatic) bisacodyL DR tablet 10 mg (DULCOLAX) 10 mg, oral, Daily PRN, constipation, Starting on 08/19/23 at 2157, PO route preferred. Constipation unrelieved by docusate sodium (COLACE) if ordered. If results needed within 2 hours give rectal suppository if ordered. Swallow whole. Do NOT crush, chew, or split tablet. 1404 ([facility] Hold - Provider: Transfer Provider, Automatic - Reason: Patient not available)1604 ([facility] Unhold - Provider: Transfer Provider, Automatic) bisacodyL suppository 10 mg (DULCOLAX) 10 mg, rectal, Daily PRN, constipation, Starting on 08/19/23 at 2157, PO route preferred. Constipation unrelieved by docusate sodium (COLACE) if ordered. If results needed within 2 hours - give rectal suppository. 1404 ([facility] Hold - Provider: Transfer Provider, Automatic - Reason: Patient not available)1604 ([facility] Unhold - Provider: Transfer Provider, Automatic) calcium carbonate chewable tablet 400 mg of calcium (TUMS) 400 mg of calcium, oral, Every 2 hour PRN, indigestion, Not to exceed 12 tablets in 24 hours, Starting on Sun08/19/23 at 2157, Doses listed are in mg of elemental calcium. Take with food. 500 mg calcium carbonate contains 200 mg of elemental calcium. 1404 ([facility] Hold - Provider: Transfer Provider, Automatic - Reason: Patient not available)1604 ([facility] Unhold - Provider: Transfer Provider, Automatic) fentaNYL injection 25 mcg (SUBLIMAZE) (CANCELED) 25 mcg, intravenous, Every 2 min PRN, sedation, Administer over 1 minute immediately prior to the procedure. May repeat every 2 minutes to a maximum of 200 mcg, until pain score of 3 or less, or until the patient meets the pain comfort goal. or RASS 0 to -2. Do not give if respiratory rate is less than 8 breaths/minute, Starting on Sun08/21/23 at 1452, Intraprocedure (CV) 1456 (Given - Provider: Yadira Chi R.Danny.)1510 (Given - Provider: Yadira Chi RMihir.) heparin (porcine) 1,000 unit/mL injection (CANCELED) Code/trauma/sedation medication, Starting on Sun08/21/23 at 1505, Intraprocedure (CV) 1505 (Given - Provider: Yadira Chi R.N.) iohexoL 350 mg iodine/mL solution (OMNIPAQUE) (CANCELED) Code/trauma/sedation medication, Starting on Sun08/21/23 at 1512, Intraprocedure (CV) 1512 (Given - Provider: Misty Fraire, B.Ch., B.A.O.) lidocaine 10 mg/mL (1 %) injection (XYLOCAINE) (CANCELED) Code/trauma/sedation medication, Starting on Sun08/21/23 at 1458, Intraprocedure (CV) 1458 (Given - Provider: Misty Fraire, B.Ch., B.A.O.) midazolam (PF) injection 0.25 mg (VERSED) (CANCELED) 0.25 mg, intravenous, Every 2 min PRN, sedation, RASS -2, Starting on 08/21/23 at 1452, Intraprocedure (CV), May repeat every 2 minutes to a maximum of 5 mg. Do not give if respiratory rate is less than 8 breaths/minute. 1456 (Given - Provider: Felipe DawnNJarrett) sodium chloride 0.9 % injection 10 mL 10 mL, intravenous, As needed, line care, Starting on 08/19/23 at 1520, Peripheral Intravenous Catheter and Rapid Infusion Catheter, prior to blood sampling, post blood transfusion or post blood sampling 1404 ([facility] Hold - Provider: Transfer Provider, Automatic - Reason: Patient not available)1604 ([facility] Unhold - Provider: Transfer Provider, Automatic) sodium chloride 0.9 % injection 10 mL 10 mL, intravenous, As needed, line care, Starting on 08/19/23 at 2154, Peripheral Intravenous Catheter and Rapid Infusion Catheter, prior to blood sampling, post blood transfusion or post blood sampling 1404 ([facility] Hold - Provider: Transfer Provider, Automatic - Reason: Patient not available)1604 ([facility] Unhold - Provider: Transfer Provider, Automatic) sodium chloride 0.9 % injection 3 mL 3 mL, intravenous, As needed, line care, Starting on 08/19/23 at 1520, Prior to and following infusion and between multiple consecutive infusions: sodium chloride 0.9 % injection 1404 ([facility] Hold - Provider: Transfer Provider, Automatic - Reason: Patient not available)1604 ([facility] Unhold - Provider: Transfer Provider, Automatic) sodium chloride 0.9 % injection 3 mL 3 mL, intravenous, As needed, line care, Starting on 08/19/23 at 2154, Prior to and following infusion and between multiple consecutive infusions: sodium chloride 0.9 % injection 1404 ([facility] Hold - Provider: Transfer Provider, Automatic - Reason: Patient not available)1604 ([facility] Unhold - Provider: Transfer Provider, Automatic) documented in this encounter Additional Health Concerns Assessment Noted Time PHQ-9 Depression Total Score: 0 08/20/20 23 12:00 PM CDT documented as of this encounter Care Teams Occupational Health Physician Relationship Specialty Start Date End Date Elsewhere, Pcp PCP - General Internal Medicine 08/19/23 09/27/23 documented as of this encounter
--- OUTSIDE RECORDS SUMMARY | 2023-12-04 12:19 | XMS_ITS | Encounter Summary ---
Author Name Unknown Organization [facility] Address [address] [place] [address] Care Team Providers Care Rn Neonatal Name Role Phone Unavailable Primary Care Provider Unavailabl e Reason for Referral * Outpatient (Routine) - Closed Specialty Diagnoses / Procedures Referred By Sebas gimenez Referred To Contact Diagnoses Stenosis Aortic Valve Acquired Procedures Echo Transthoracic (TTE) Cresencio Medina M.B.B.S. [address] [place] [address] [facility] Referral ID Status Reason Start Date Expiration Date Visits Re quested Visits Authorized [id number] Closed 08/14/2023 08/13/2024 1 1 Reason for Visit * Auth/Cert (Routine) Specialty Diagnoses / Procedures Referred By Sebas gimenez Referred To Contact Diagnoses Stenosis Mitral And Aortic Stenosis Pain Chest Procedures ER Referral ID Status Reason Start Date Expiration Date Visits Re quested Visits Authorized [id number] 1 1 Encounter Details Date Type Department Care Team (Latest Contact Info) Description 08/17/2023 2:53 PM CDT - 08/17/2023 11:59 PM CDT Hospital Encounter Department of Cardiovascular Diseases in [place], [place] [address] [place] [address] Cresencio Medina, M.B.B.S. [address] [place] [address] Stenosis Aortic Valve Acquired Discharge Disposition: Home or Self Care Social History Tobacco Use Types Packs/Day Years Used Date Smoking Tobacco: Never Assessed Nutrition Answer Date Recorded Nutrition: EVOO Fat [...] Sig Dispensed Refills Start Date End Date atorvastatin (LIPITOR) 40 mg tablet Take 40 mg by mouth at bedtime. 0 07/11/2023 08/22/2023 finasteride (PROSCAR) 5 mg tablet Take 5 mg by mouth daily. 0 07/11/2023 09/26/2023 lisinopriL (PRINIVIL,ZESTRIL) 2.5 mg tablet Take 2.5 mg by mouth daily. 0 05/01/2023 08/22/2023 metFORMIN XR (GLUCOPHAGE-XR) 500 mg 24 hr tablet TAKE 1 TABLET BY MOUTH TWICE DAILY WITH BREAKFAST AND WITH SUPPER 0 08/08/2023 08/22/2023 rOPINIRole (REQUIP) 0.5 mg tablet Take 0.5 mg by mouth 3 (three) times a day. 0 07/11/2023 09/26/2023 tamsulosin (FLOMAX) 0.4 mg 24 hr capsule Take 0.4 mg by mouth at bedtime. 0 07/11/2023 09/26/2023 documented as of this encounter Plan of Treatment Upcoming Encounters Date Type Department Care Team (Latest Contact Info) Description 12/21/2023 10:15 AM PARTS PICKER Clinical Communication Virtual Review in [place], [place] [address] [place] [address] 12/24/2023 2:00 PM PARTS PICKER Comprehensive Visit Department of Cardiovascular Medicine in [place], [place] [address] [place] [phone] Gudelia Soto M.D. [address] [place] [phone] 01/01/2024 3:45 PM PARTS PICKER Comprehensive Visit Division of Hematology in [place], [place] [address] [place] [address] Billy Segal APRN, C.N.P., D.N.P. [address] [place] [address] documented as of this encounter Procedures Procedure Name Priority Date/Time Associated Diagnosis Comments (TTE) 2D ECHO DOPPLER COLOR Routine 08/17/2023 4:17 PM CDT Stenosis Aortic Valve Acquired documented in this encounter Results * (TTE) 2D ECHO DOPPLER COLOR (08/17/2023 4:17 PM CDT) Ejection Fraction 67 MC CV EIMS Mid-Ascending Aorta 39 MC CV EIMS LV Mass Index 85 MC CV EIMS LV End-Diastolic Diameter 46 MC CV EIMS LV End-Systolic Diameter 28 MC CV EIMS MV E Velocity 0.9 MC CV EIMS MV A Velocity 1.1 MC CV EIMS MV E/A 0.82 MC CV EIMS MV e' Velocity Medial 0.07 MC CV EIMS MV e' Velocity Lateral 0.08 MC CV EIMS MV E/e' Medial 12.9 MC CV EIMS MV E/e' Lateral 11.3 MC CV EIMS Left ventricular stroke volume index 39 MC CV EIMS Cardiac Output 6.16 MC CV EIMS Cardiac Index 3.08 MC CV EIMS LV Interventricular Septal Wall Thickness 11 MC CV EIMS LV Posterior Wall Thickness 10 MC CV EIMS LV Relative Wall Thickness 43 MC CV EIMS RA Pressure 5 MC CV EIMS AV mean gradient 44 MC CV EIMS Aortic valve area 0.9 MC CV EIMS Aortic Valve Area Index 0.45 MC CV EIMS Aortic Valve Dimensionless Index 0.26 MC CV EIMS LA Volume Index 31 MC CV EIMS Aortic Valve Systolic Peak Velocity 4.1 MC CV EIMS Anatomical Region Laterality Modality Echocardiography 08/17/2023 3:28 PM CDT Impressions 08/17/2023 4:33 PM CDT There are no previous [facility] echocardiograms available for comparison. LEFT VENTRICLE:Normal left ventricular chamber size. Abnormal left ventricular geometry with ??concentric remodeling (increased wall thickness to cavity ratio). Calculated 2-D linear left ventricular ejection fraction 67%. No regional wall motion abnormalities. Grade 1/3 left ventricular diastolic dysfunction, consistent with low to normal left ventricular filling pressure. RIGHT VENTRICLE:Normal right ventricular chamber size. Normal right ventricular systolic function. Unable to detect peak tricuspid regurgitation velocity for pulmonary artery systolic pressure calculation. ATRIA:Normal left atrial size. Left atrial volume index 31 ml/m2. Normal right atrial size. CARDIAC VALVES:Trileaflet aortic valve. Severe ??aortic valve stenosis. Aortic valve systolic mean Doppler gradient 44 mmHg. Aortic valve area by Doppler 0.90 cm2. Trivial aortic valve regurgitation. Normal mitral valve. Trivial mitral valve regurgitation. Normal pulmonary valve. Normal pulmonary valve systolic velocities. Trivial pulmonary valve regurgitation. Normal tricuspid valve. Trivial tricuspid valve regurgitation. OTHER ECHO FINDINGS:Normal inferior vena cava size with normal inspiratory collapse (>50%). Normal mid ascending aorta diameter of 39 mm. Abdominal aorta incompletely visualized. Normal abdominal aorta Doppler flow pattern. No atrial level shunt by color flow imaging. No intracardiac mass or thrombus, but the left atrial appendage cannot be visualized adequately with transthoracic echo to exclude thrombus in this location. No ??pericardial effusion. For the complete report, see the Order-Level Documents. Narrative 08/17/2023 4:33 PM CDT For the complete report, see the Order-Level Documents. Hemodynamics Blood Pressure: 152 / 79 mmHg ECG: Sinus rhythm Final Impressions 1. Normal left ventricular chamber size. 2. Calculated 2-D linear left ventricular ejection fraction 67%. 3. No regional wall motion abnormalities. 4. Grade 1/3 left ventricular diastolic dysfunction, consistent with low to normal left ventricular filling pressure. 5. Normal right ventricular chamber size. 6. Normal right ventricular systolic function. 7. Severe ??aortic valve stenosis. 8. Aortic valve systolic mean Doppler gradient 44 mmHg. 9. Aortic valve area by Doppler 0.90 cm2. 10. Trivial aortic valve regurgitation. 11. Trivial mitral valve regurgitation. 12. Trivial tricuspid valve regurgitation. Procedure Note Miguel Araya M.D., Ph.D. - 08/17/2023 For the complete report, see the Order-Level Documents. Hemodynamics Blood Pressure: 152 / 79 mmHg ECG: Sinus rhythm Final Impressions 1. Normal left ventricular chamber size. 2. Calculated 2-D linear left ventricular ejection fraction 67%. 3. No regional wall motion abnormalities. 4. Grade 1/3 left ventricular diastolic dysfunction, consistent with lowto normal left ventricular filling pressure. 5. Normal right ventricular chamber size. 6. Normal right ventricular systolic function. 7. Severe aortic valve stenosis. 8. Aortic valve systolic mean Doppler gradient 44 mmHg. 9. Aortic valve area by Doppler 0.90 cm2. 10. Trivial aortic valve regurgitation. 11. Trivial mitral valve regurgitation. 12. Trivial tricuspid valve regurgitation. Findings There are no previous [facility] echocardiograms available forcomparison. LEFT VENTRICLE:Normal left ventricular chamber size. Abnormal leftventricular geometry with concentric remodeling (increased wall thicknessto cavity ratio). Calculated 2-D linear left ventricular ejection [id number]%. No regional wall motion abnormalities. Grade 1/3 left ventriculardiastolic dysfunction, consistent with low to normal left ventricularfilling pressure. RIGHT VENTRICLE:Normal right ventricular chamber size. Normal rightventricular systolic function. Unable to detect peak tricuspidregurgitation velocity for pulmonary artery systolic pressurecalculation. ATRIA:Normal left atrial size. Left atrial volume index 31 ml/m2. Normalright atrial size. CARDIAC VALVES:Trileaflet aortic valve. Severe aortic valve stenosis.Aortic valve systolic mean Doppler gradient 44 mmHg. Aortic valve area byDoppler 0.90 cm2. Trivial aortic valve regurgitation. Normal mitral valve.Trivial mitral valve regurgitation. Normal pulmonary valve. Normalpulmonary valve systolic velocities. Trivial pulmonary valveregurgitation. Normal tricuspid valve. Trivial tricuspid valveregurgitation. OTHER ECHO FINDINGS:Normal inferior vena cava size with normal inspiratorycollapse (>50%). Normal mid ascending aorta diameter of 39 mm. Abdominalaorta incompletely visualized. Normal abdominal aorta Doppler flowpattern. No atrial level shunt by color flow imaging. No intracardiac massor thrombus, but the left atrial appendage cannot be visualized adequatelywith transthoracic echo to exclude thrombus in this location. Nopericardial effusion. For the complete report, see the Order-Level Documents. Cresencio Courtney CV ECHO PROCEDUR ES documented in this encounter Visit Diagnoses Diagnosis Stenosis Aortic Valve Acquired documented in this encounter
--- OUTSIDE RECORDS SUMMARY | 2023-12-04 12:19 | XMS_ITS | Encounter Summary ---
Author Name Unknown Organization [facility] Address [address] [place] [address] Care Team Providers Care Quality Control Scientist Name Role Phone Elsewhere, Pcp Primary Care Provider Unavailabl e Reason for Visit * Reason Onset Date Comments Pre-visit Testing Orders 08/20/2023 Encounter Details Date Type Department Care Team (Latest Contact Info) Description 08/20/2023 Clinical Communication Department of Cardiovascular Medicine in [place], [place] [address] [place] [address] Billy Segal APRN, C.N.P., D.N.P. [address] [place] [address] Pre-visit Testing Orders Social History Tobacco Use [...] (Latest Contact Info) Description 12/21/2023 10:15 AM PICK UP AND DELIVERY DRIVER Clinical Communication Virtual Review in [place], [place] [address] [place] [address] 12/24/2023 2:00 PM PICK UP AND DELIVERY DRIVER Comprehensive Visit Department of Cardiovascular Medicine in [place], [place] [address] [place] [phone] Gudelia Soto M.D. [address] [place] [phone] 01/01/2024 3:45 PM PICK UP AND DELIVERY DRIVER Comprehensive Visit Division of Hematology in [address] [phone] Billy Segal APRN, C.N.P., D.N.P. [address] [place] [phone] documented as of this encounter Visit Diagnoses Diagnosis Stenosis Aortic Valve Acquired- Primary documented in this encounter Additional Health Concerns Assessment Noted Time PHQ-9 Depression Total Score: 0 08/20/20 12:00 PM CDT documented as of this encounter Care Teams Quality Control Scientist Relationship Specialty Start Date End Date Elsewhere, Pcp PCP - General Internal Medicine 08/19/23 09/27/23 documented as of this encounter
--- OUTSIDE RECORDS SUMMARY | 2023-12-04 12:19 | XMS_ITS | Encounter Summary ---
Author Name Unknown Organization [facility] Address [address] [place] [id number] Care Team Providers Care Digital Cartographic Technician Name Role Phone Elsewhere, Pcp Primary Care Provider Unavailabl e Reason for Visit * Reason Comments Chest Pain * Auth/Cert (Routine) Specialty Diagnoses / Procedures Referred By Contac t Referred To Contact Diagnoses Stenosis Mitral And Aortic Stenosis Pain Chest Procedures ER Referral ID Status Reason Start Date Expiration Date Visits Re quested Visits Authorized [id number] 1 1 Encounter Details Date Type Department Care Team (Late st Contact Info) Description 08/21/2023 2:35 PM CDT - 08/21/2023 3:50 PM CDT Surgery Division of Cardiovascular Diseases in [place], [place] [address] [place] [address] Ezequiel Jack M.D. [address] [place] [phone] CORONARY ANGIOGRAPHY Social History Tobacco Use Types Packs/Day Years [...] Sign Reading Time Taken Comments Blood Pressure 124/53 08/21/2023 3:45 PM CDT Pulse 62 08/21/2023 3:45 PM CDT Temperature 36.5 ??C (97.7 ??F) 08/21/2023 3:45 AM CD T Respiratory Rate 15 08/21/2023 3:15 PM CDT Oxygen Saturation 96% 08/21/2023 3:45 PM CDT Inhaled Oxygen Concentration - - Weight 83.8 kg (184 lb 11.9 oz) 08/21/2023 4:12 AM CDT Height 173 cm (5' 8.11) 08/19/2023 8:30 PM CDT Body Mass Index 27.6 08/19/2023 8:30 PM CDT documented in this encounter Discharge Summaries * Billy Segal APRN, C.N.P., D.N.P. - 08/22/2023 10:35 AM CDT CARDIOLOGY HOSPITAL DISCHARGE SUMMARY DATE OF ADMISSION: 08/19/2023 DATE OF DISCHARGE: 08/22/2023 Discharge Provider: Jennie Enriquez M.D. Discharge Provider Team: RST JOHANNY 4 PRINCIPAL DIAGNOSIS Pain Chest DISMISSAL DIAGNOSES [...] - 1 event recorded on loop recorder ([id number]), lasting 8 minutes on 11/25/20 #7 Hypertension [...] 4:00 PM Sarah Miller M.D., M.P.H.; 01 [facility] Surgery 09/19/2023 4:30 PM 01 [facility] Cardiovascular Surgery For appointment details refer to your Patient Appointment Guide. HOSPITAL COURSE Admission Weight: 86.5 kg Dismissal Weight: 82.6 kg BMI: Body mass index is 27.6 kg/m??. Mr. Harris is a 73-year-old gentleman who presented to [facility] emergency department with shortness of breath with [...] symptoms. This prompted him to present to [facility] emergency [facility]. Of note, he was seen by his local provider on 08/08/23, his Lisinopril dose was decreased to 2.5 mg daily at that time due to hypotension and was referred to [facility] for an echocardiogram to monitor his aortic [...] dose Aspirin. He was admitted to the [facility] Cardiology 4 service for further monitoring [...] of Atrial Fibrillation during the period of 5519-8361, on 11/25/20 that lasted for 8 minutes. [...] Status Erythropoietin (EPO) In process Pernicious Anemia [place] In process DISCHARGE DISPOSITION: Home or Self [...] AM CDT You were discharged from the [facility]ST CARD 4 Service. Please identify this service name if you call withquestions after hospitalization. * Attachments The following attachments cannot be sent through Care Everywhere. * Pantoprazole (By mouth) (Greek) * Acetaminophen (By mouth) (Greek) documented in this encounter Medications at Time [...] history of AFIB discovered on loop recorder . Continue monitor. Reduced aspirin from 325 mg to 81 mg MANJEET, dose adjust medications for eCrCl < 50 mL/min. Christina Lou, Pharm.Emilia., R.Ph. * Dax Montez M.D., Ph.D. - 08/21/2023 11:08 AM CDT RST CARD 4 Progress Note Severe trileaflet aortic stenosis TTE (08/17/2023): LVEF 67% with concentric remodeling, MG 44 mmHg, and JOANA 0.90 cm2. Normal appearing IVC with inspiratory collapse. History of stroke (left lateral basal ganglia infarct April 2019) On full dose aspirin, transitioned to 81 mg this hospitalization S/p loop recorder, [id number]. Per chart showed 1-4 events of AF. [...] - 1 event recorded on loop recorder ([id number]), lasting 8 minutes on 11/25/20 #6 Hypertension #7 Hyperlipidemia #8 Type 2 diabetes mellitus, most recent A1C 6.3 (05/01/23) #9 BPH #10 Iron deficiency anemia #11 Hypomagnesemia - repleted #12 GERD Mr. Harris is a 73 y.o. male who was admitted to [facility] Cardiology 4 service for shortness of [...] Fibrillation lasting 8 minutes on 11/25/20 from 4745-6559. He was on high dose Aspirin. Given [...] Home - self care Billy Segal APRN, Cata.N.PJarrett, D.N.P. 08/21/23 R[facility] C[facility] 4 I personally spent a total 35 minutes providing and coordinating care today. * Billy Segal APRN, Cata.N.P., D.N.P. - 08/20/2023 3:36 PM CDT RST [...] - 1 event recorded on loop recorder ([id number]), lasting 8 minutes on 11/25/20 #5 Hypertension #6 Hyperlipidemia #7 Type 2 diabetes mellitus, most recent A1C 6.3 (05/01/23) #8 BPH #9 Iron deficiency anemia #10 Hypomagnesemia Mr. Harris is a 73 y.o. male who was admitted to [facility] Cardiology 4 service for shortness of [...] hour. This prompted him to present to [facility]'s emergency department. He stated that the pain was not radiating and did not have other associated symptoms. Of note, he was seen by his local provider on 08/08/23, his Lisinopril dose was decreased to 2.5 mg daily due to hypotension and was referred to [facility] for an echocardiogram to monitor his aortic [...] dose Aspirin. He was admitted to the [facility] Cardiology 4 service for further monitoring [...] lasting for 8 minutes on 11/25/20 from 8501-3540. He remains on high dose Aspirin. PLAN: [...] and coordinating care today. * Jack Bustos, PharmJarrettD., R.Ph. - 08/20/2023 9:19 AM CDT Pharmacist [...] ; eval for valve replacement Jack Bustos Pharm.D., R.Ph. documented in this encounter H&P Notes [...] indicated. Jennie Enriquez M.D. 08/20/2023 * Dax Montez M.D., Ph.D. - 08/20/2023 1:10 PM CDT [...] does not have a prior history of CT but did have a stroke in 2019. [...] On full dose aspirin S/p loop recorder, [id number]. Per chart showed 1-4 events of AF. [...] 08/19/2023 8:26 PM CDT SUBJECTIVE REFERRAL SOURCE [facility] Emergency Room, [facility], [place], [place] CHIEF COMPLAINT/REASON FOR VISIT Episodes of [...] trouble viewing the loop recorder reports in [facility] everywhere. Patient presented to the emergency room [...] area of 1.43 cm^2 (report available in [facility] everywhere). LVEF was approximately 70%. Electrocardiogram revealed [...] per review of labo ratory results in [facility] Everywhere. Chest x-ray revealed no focal pulmonary [...] area of 1.43 cm^2 (report available in [facility] everywhere). As of August 17, 2023 echocardiogram [...] vs other imaging. #5 History of CVA 2018 #6 Paroxysmal atrial fibrillation (1 to 4 events noted between 2018 and 2021 on loop recorder) He is currently on a regimen of 325 mg of aspirin daily-we will continue this for now. We did have some technical difficulties reviewing the complete loop recorder reports from [facility] everywhere-we will continue to follow up and [...] He has fairly stabilized during admission. So Ithink we can do this as an outpatient. [...] is a 73 y.o. male admitted to Cards 4 service on 08/19/2023 from the ED [...] Cardiovascular Surgery was consulted to see by Cards 4 for evaluation and treatment of aortic [...] Filtration Rate (GFR) 30 To 44 (HCC) #4 Hyperlipidemia On Treatment #5 Benign Prostatic Hyperplasia Without Obstruction #6 Atrial Fibrillation Paroxysmal (HCC) #7 Diabetes Mellitus Type 2 (HCC) #8 Stroke (HCC) #9 Anemia Iron Deficiency #10 Basal Cell Carcinoma Skin Other Parts Face #11 Squamous Cell Carcinoma Skin Other Parts Face Mr. Harris is a 73 y.o. male admitted to [place] [address] for evaluation and management of chest pain and dyspnea in the setting of known severe aortic stenosis. [facility] was consulted for consideration for surgical aortic valve replacement. Patient will need his coronary arteries evaluated for CAD. This consult will be staffed by Dr. Miller. Please call the [facility] customer solutions teammate pager [phone]) with any questions. documented in this encounter Nursing Notes * Kleber Sharma R.N. - 08/22/2023 10:53 AM CDT Shift Goals: Clinical Goals for the Shift: Patient will remain NPO overnight. Identify possible barriers to meeting goals/advancing plan of care: None End of Shift Summary: Patient was discharge to [facility] with his . All VSS at time [...] including history, physical exam, orders, and plan. Iagree with the note of the resident. Assessment and Plan 73-year-old male patient presents the emergency department with complaints of chest discomfort thatbegan around 12 30 today. It has been recurring on and off throughout the afternoon. Patient has a known history of severe aortic stenosis. Echo was done here at [facility] last Sunday but he has nofollow-up appointments. They recently moved to [place]. They have been getting care in [place]. We have no medical records for comparison. [...] in ED Course. Norman Mcdonough D.O. 08/19/23 173 Norman Mcdonough D.O. 08/19/231957 Norman Mcdonough D.O. [...] Aortic Stenosis Mare Noble M.D. Resident 08/19/23 [id number] * Rowena Oro, RJarrettN. - 08/19/2023 3:22 PM CDT Patient presents to the Emergency Department following an episode of chest pain at around 1230 today after eating lunch. Patient's family members states that he looked ashen and was hypotensive. Painhas since resolved. Patient has a history of aortic stenosis. Rowena Oro R.N. 08/19/23 1526 documented in this encounter Miscellaneous Notes * Hospital Course - Billy Segal APRN, C.N.P., D.N.P. - 08/19/2023 10:39 PM CDT Mr. Harris is a 73-year-old gentleman who presented to [facility] emergency department with shortness of breath with [...] symptoms. This prompted him to present to [facility] emergency department. Of note, he was seen by his local provider on 08/08/23, his Lisinopril dose was decreased to 2.5 mg daily at that time due to hypotension and was referred to [facility] for an echocardiogram to monitor his aortic [...] dose Aspirin. He was admitted to the [facility] Cardiology 4 service for further monitoring [...] of Atrial Fibrillation during the period of 8051-9818, on 11/25/20 that lasted for 8 minutes. [...] (Latest Contact Info) Description 12/21/2023 10:15 AM PARALEGAL SPECIALIST Clinical Communication Virtual Review in [place], [place] [address] [place] [address] 12/24/2023 2:00 PM PARALEGAL SPECIALIST Comprehensive Visit Department of Cardiovascular Medicine in [place], [place] [address] [place] [phone] Gudelia Soto M.D. [address] [place] [phone] 01/01/2024 3:45 PM PARALEGAL SPECIALIST Comprehensive Visit Division of Hematology in [address] [phone] Billy Segal APRN, RadhaN.P., D.N.P. [address] [place] [phone] documented as of this encounter Procedures Procedure [...] * Glucose, POCT (08/22/2023 6:47 AM CDT) [facility] Glucose, POCT, B 127 70 - 140 mg/dL 08/22/2023 6:50 AM CDT PCLX Site Capillary 08/22/2023 6:50 AM CDT PCLX Blood 08/22/2023 6:47 AM CDT 08/22/2023 6:50 AM CDT Unknown Provider LAB POCT ORDERABLES- MANUAL Performing Organization Address City/[facility]/ZIP Co de Phone Number [facility] [address] [place] [address], [facility] PCLX [facility] POC [address] [place] [address] * Gastrin (08/22/2023 5:14 AM CDT) [facility] Gastrin, S 21 pg/mL 08/22/2023 6:26 PM CDT [facility] Comment: Not consistent with pernicious anemia. ----REFERENCE VALUE---- <100 Reference ranges valid for >= 8 hour fast. Blood 08/22/2023 5:14 AM CDT 08/22/2023 3:36 PM CDT Billy Segal APRN, C.N.P., D.N.P. LAB BLOOD NON ADD-ON [facility] [address] [place] [address] [facility] [address] [place] [address] * Intrinsic Factor Blocking Antibody, Serum (08/22/2023 5:14 AM CDT) Intrinsic Factor Blocking Ab, S Negative Negative 08/22/2023 1:13 PM CDT [facility] Comment:Gastrin test was per formed. Comment SEE COMMENT 08/22/2023 1:13 PM CDT [facility] Comment: Intrinsic Factor Blocking Antibody (IFBA) antibodies are absent in approximately 50% of individuals with pernicious anemia (PA). The absence of elevated IFBA antibodies does not rule out the presence of PA; further studies such as gastrin testing may be indicated. Blood 08/22/2023 5:14 AM CDT 08/22/2023 10:03 AM CDT Billy Segal APRN, C.N.P., D.N.P. LAB BLOOD NON ADD-ON [facility] [address] [place] [address] [facility] [address] [place] [address] * (ABNORMAL) Comprehensive Metabolic Panel (08/22/2023 5:14 AM CDT) Pathologist [facility] Potassium, S 4.7 3.6 - [...] Segal APRN, C.N.P., D.N.P. [place] [address], [facility] 200 [place] [address] * Ferritin (08/22/2023 5:14 AM CDT) Ferritin, S 243 31 - 409 mcg/L 08/22/2023 6:31 AM CDT DTL Blood (Blood, Venous) 08/22/2023 5:14 AM CDT 08/22/2023 6:06 AM CDT Billy eSgal APRN, C.N.P., D.N.P. LAB BLOOD ADD-ON [facility] [address] [place] [address], [facility] [address] [place] [address] * (ABNORMAL) Iron and Total Iron-Binding Capacity (08/22/2023 5:14 AM CDT) Pathologist [facility] Iron 72 50 - 150 mcg/dL 08/22/2023 6:31 AM CDT DTL Total Iron Binding Capacity 203(L) 250 - 400 mcg/dL 08/22/2023 6:31 AM CDT DTL Percent Saturation 35 14 - 50 % 08/22/2023 6:31 AM CDT DTL Blood (Blood, Venous) 08/22/2023 5:14 AM CDT 08/22/2023 6:06 AM CDT Cata Richards APRN.N.P., D.N.P. LAB BLOOD ADD-ON Performing Organization Address [facility] Co de Phone Number [facility] [address] [place] [address], [facility] [address] [place] [address] * (ABNORMAL) Pernicious Anemia [place] (08/22/2023 5:14 AM CDT) [facility] Vitamin B12 Assay, S 123(L) 180 - 914 ng/L 08/22/2023 12:19 PM CDT [facility] Comment: Low B12; Intrinsic Factor Blocking Antibody test was performed. Blood (Blood, Venous) 08/22/2023 5:14 AM CDT 08/22/2023 10:03 AM CDT Billy Segal APRN, C.N.P., D.N.P. LAB BLOOD NON ADD-ON [facility] [address] [place] [address] [facility] [address] [place] [address] * (ABNORMAL) Magnesium (08/22/2023 5:14 AM CDT) Magnesium, S 2.4(H) 1.7 - 2.3 mg/dL 08/22/2023 6:31 AM CDT DTL Blood (Blood, Venous) 08/22/2023 5:14 AM CDT 08/22/2023 6:06 AM CDT Billy Segal APRN, C.N.P., D.N.P. LAB BLOOD ADD-ON [facility] [address] [place] [address], [facility] [address] [place] [address] * (ABNORMAL) CBC with Differential, Blood (08/22/2023 5:14 AM CDT) Pathologist [facility] Hemoglobin 11.5(L) 13.2 - 16.6 g/dL 08/22/2023 [...] 5:14 AM CDT 08/22/2023 5:50 AM CDT Cata Richards APRN.N.P., D.N.P. LAB BLOOD ADD-ON Performing Organization Address City/[facility] Co de Phone Number [facility] [address] [place] [address] * (ABNORMAL) Hemoglobin A1c (08/22/2023 5:14 AM CDT) Hemoglobin A1c, B 6.2(H) 4.0 - 5.6 % 08/22/2023 7:37 AM CDT DTL Comment: Hemoglobin A1c values of 5.7-6.4 percent indicate an increased risk for developing diabetes mellitus. In diabetic patients, HbA1c goals should be discussed with healthcare provider. Blood (Blood, Venous) 08/22/2023 5:14 AM CDT 08/22/2023 5:49 AM CDT Cata Richards APRN.N.P., D.N.P. LAB BLOOD ADD-ON Performing Organization Address City/[facility]/ZIP Co de Phone Number [facility] [address] [place], [place] [phone] [place] [address] [place] [address] * Erythropoietin (EPO) (08/22/2023 5:08 AM CDT) Erythropoietin (EPO), S 7.5 2.6 - 18.5 mIU/mL 08/22/2023 12:01 PM CDT [facility] Blood (Blood, Venous) 08/22/2023 5:08 AM CDT 08/22/2023 10:39 AM CDT Radha Richards APRNNKory, D.N.P. LAB BLOOD ADD-ON Performing Organization Address City/[facility]/ZIP Co de Phone Number [facility] [address] [place] [address] [facility] [address] [place] [address] * (ABNORMAL) Glucose, POCT (08/21/2023 9:19 PM CDT) Glucose, POCT, B 154(H) 70 - 140 mg/dL 08/21/2023 9:31 PM CDT PCLX Site Capillary 08/21/2023 9:31 PM CDT PCLX Last Intake 3-4 hours 08/21/2023 9:31 PM CDT PCLX Blood 08/21/2023 9:19 PM CDT 08/21/2023 9:31 PM CDT Unknown Provider LAB POCT ORDERABLES- MANUAL Performing Organization Address City/[facility] Co de Phone Number [facility] [address] [place] [address], [facility] PCLX [facility] POC [address] [place] [address] * (ABNORMAL) Glucose, POCT (08/21/2023 5:19 PM CDT) Glucose, POCT, B 177(H) 70 - 140 mg/dL 08/21/2023 5:21 PM CDT PCLX Site Capillary 08/21/2023 5:21 PM CDT PCLX Last Intake 3-4 hours 08/21/2023 5:21 PM CDT PCLX Blood 08/21/2023 5:19 PM CDT 08/21/2023 5:21 PM CDT Unknown Provider LAB POCT ORDERABLES- MANUAL [facility] [address] [place] [address], [facility] PCLX [facility] [place] POC [address] [place] [address] * CORONARY ANGIOGRAPHY (08/21/2023 3:16 PM CDT) [...] Diabetes Mellitus Type 2 (HCC) 4. Stroke ([facility]) 5. Hyperlipidemia On Treatment 6. 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(CKD) Stage 3b Glomerular Filtration Rate (GFR) 30 To 44 ([facility]) CORONARY DIAGNOSTIC SUMMARY Coronary artery dominance is [...] LAB POCT ORDERABLES- MANUAL Performing Organization Address City/[facility]/ZIP Co de Phone Number [facility] [address] [place] [address], [facility] PCLX [facility] POC 200 [place] [address] * Glucose, POCT (08/21/2023 6:56 AM CDT) Glucose, POCT, B 127 70 - 140 mg/dL 08/21/2023 7:06 AM CDT PCLX Site Capillary 08/21/2023 7:06 AM CDT PCLX Blood 08/21/2023 6:56 AM CDT 08/21/2023 7:06 AM CDT Unknown Provider LAB POCT ORDERABLES- MANUAL Performing Organization Address City/[facility] Co de Phone Number [facility] [address] [place] [address], [facility] PCLX [facility] POC 200 [place] [address] * Lipid Panel (08/21/2023 4:52 AM CDT) [...] Segal APRN, C.N.P., D.N.P. LAB BLOOD ADD-ON [facility] [place] [address], [facility] [place] [address] * (ABNORMAL) Basic Metabolic Panel (08/21/2023 4:52 AM CDT) Potassium, S 4.9 3.6 - 5.2 mmol/L [...] CDT 08/21/2023 5:49 AM CDT Billy Segal APRN C.N.P., D.N.P. LAB BLOOD ADD-ON [facility] [address] [place] [address], [facility] [address] [place] [address] * (ABNORMAL) Cystatin C with Estimated GFR [...] 4:49 AM CDT 08/21/2023 8:13 AM CDT Billy Segal APRN C.N.P., Emilia.N.P. LAB BLOOD ADD-ON [facility] [address] [place] [address], [facility] DTL [facility] [address] [place] [address] * Glucose, POCT (08/20/2023 9:17 PM CDT) Glucose, POCT, B 130 70 - 140 mg/dL 08/20/2023 9:19 PM CDT PCLX Site Capillary 08/20/2023 9:19 PM CDT PCLX Last Intake 3-4 hours 08/20/2023 9:19 PM CDT PCLX Blood 08/20/2023 9:17 PM CDT 08/20/2023 9:19 PM CDT Unknown Provider LAB POCT ORDERABLES- MANUAL [facility] [address] [place] [address], [facility] PCLX [facility] POC [address] [place] [address] * DX Panorex Teeth (08/20/2023 6:23 PM [...] PANOREX TEETH Procedure Note Stan Azul M.B.B.S., M.MED. - 08/20/2023 EXAM: DX PANOREX TEETH IMPRESSION: Multiple dental fillings and restorations along the maxillary andmandibular alveolar arches. Multiple nonvisualized molar teeth. Questionable carious changesalong the maxillary incisors, suboptimally assessed due to overlying artifacts. Similarly,possible carious changes along the left mandibular central incisor. No definite periapicallucencies. No acute fractures. Cata Richards APRN.N.PJarrett, D.N.P. IMG DIAGNOSTIC IMAGING PROCEDURES * Glucose, POCT (08/20/2023 4:53 PM CDT) Glucose, POCT, B 105 70 - 140 mg/dL 08/20/2023 4:55 PM CDT PCLX Site Capillary 08/20/2023 4:55 PM CDT PCLX Last Intake 3-4 hours 08/20/2023 4:55 PM CDT PCLX Blood 08/20/2023 4:53 PM CDT 08/20/2023 4:55 PM CDT Unknown Provider LAB POCT ORDERABLES- MANUAL [facility] [address] PCLX [facility] POC [address] [place] [address] * Dipstick, Urine (08/20/2023 3:26 PM CDT) [...] CDT 08/20/2023 3:43 PM CDT Billy Segal APRN C.N.PJarrett, D.N.P. LAB URINE ORDERABLES Performing Organization Address City/[facility] Co de Phone Number [facility] [address] [place] [address] * pH, Urine (08/20/2023 3:26 PM CDT) pH, U 6.9 4.5 - 8.0 08/20/2023 4:2 4 PM CDT DT Urine 08/20/2023 3:26 PM CDT 08/20/2023 3:43 PM CDT Radha Richards APRNN.PJarrett, D.N.P. LAB URINE ORDERABLES Performing Organization Address City/[facility] Co de Phone Number [facility] [address] [place] [address] * Osmolality, Urine (08/20/2023 3:26 PM CDT) Osmolality, U 239 150 - 1150 mOsm/kg 08/20/2023 4:24 PM CDT DT Urine 08/20/2023 3:26 PM CDT 08/20/2023 3:43 PM CDT Cata Richards APRN.N.P., D.N.P. LAB URINE ORDERABLES Performing Organization Address City/[facility]/ZIP Co de Phone Number [facility] [address] [place] [address] * Microscopic Automated (08/20/2023 3:26 PM CDT) Microscopy Normal 08/20/2023 3:5 3 PM CDT DT Urine 08/20/2023 3:26 PM CDT 08/20/2023 3:43 PM CDT Radha Richards APRNNKory, D.N.P. LAB URINE ORDERABLES Performing Organization Address [facility] Co de Phone Number [facility] [address] [place] [address], [facility] [address] [place] [address] * Urinalysis with Microscopic: Urine, Midstream (08/20/2023 [...] CDT 08/20/2023 3:43 PM CDT Radha Richards APRNNKory, D.N.P. LAB URINE ORDERABLES Performing Organization Address City/[facility]/ZIP Co de Phone Number [facility] [address] [place] [address], [facility] [address] [place] [address] * (ABNORMAL) Glucose, POCT (08/20/2023 11:55 AM CDT) Glucose, POCT, B 281(H) 70 - 140 mg/dL 08/20/2023 12:06 PM CDT PCLX Blood 08/20/2023 11:5 5 AM CDT 08/20/2023 12:06 PM CDT Unknown Provider LAB POCT ORDERABLES- MANUAL [facility] [address] [place] [address], [facility] PCLX [facility] [address] [place] [address] * Magnesium (08/20/2023 7:01 AM CDT) Magnesium, S 1.9 1.7 - 2.3 mg/dL 08/20/2023 8:09 AM CDT DTL Blood (Blood, Venous) 08/20/2023 7:01 AM CDT 08/20/2023 7:48 AM CDT Palomo Flores P.A.-C. LAB BLOOD ADD -ON Performing Organization Address City/[facility]/ZIP Co de Phone Number [facility] [address] [place] [address], [facility] [address] [place] [address] * (ABNORMAL) Basic Metabolic Panel (08/20/2023 7:01 [...] LAB BLOOD ADD -ON Performing Organization Address City/State/ZIP Nh de Phone Number [facility] [address] [place] [address], [place] [address] [address] * (ABNORMAL) Cystatin C with Estimated GFR [...] 6:59 AM CDT 08/20/2023 1:01 PM CDT Billy Segal APRN C.N.P., D.N.P. LAB BLOOD ADD-ON [facility] [address] [place] [address], [facility] DTL [facility] [address] [place] [address] * Glucose, POCT (08/20/2023 6:58 AM CDT) Glucose, POCT, B 107 70 - 140 mg/dL 08/20/2023 7:01 AM CDT PCLX Site Capillary 08/20/2023 7:01 AM CDT PCLX Blood 08/20/2023 6:58 AM CDT 08/20/2023 7:01 AM CDT Unknown Provider LAB POCT ORDERABLES- MANUAL POC [facility] [address] [place] [address], [facility] PCLX [facility] POC [address] [place] [address] * (ABNORMAL) Troponin T, 2h/6h, 5th Gen (08/19/2023 6:00 PM CDT) Troponin T, 2 hr, 5th gen 18(H) [...] PM CDT 08/19/2023 6:05 PM CDT Narrative [facility] - 08/19/2023 6:25 PM CDT Specimen Information: Specimen ID: [id number] Specimen Type: Blood Specimen Collection Start Date: 08/19/2023 ??6:00 PM Specimen Received Date: 08/19/2023 ??6:05 PM Specimen ID: [id number] Specimen Type: Blood Norman Mcdonough D.O. LAB BLOOD YAZAN KATHI Performing Organization Address [facility] Co de Phone Number [facility] [address] [place] [address] * (ABNORMAL) Troponin T, Baseline, 5th gen (08/19/2023 3:49 PM CDT) [facility] Troponin T, Baseline, 5th gen 18(H) <=15 ng/L 08/19/2023 4:16 PM CDT STMA Blood (Blood, Venous) 08/19/2023 3:49 PM CDT 08/19/2023 3:56 PM CDT Norman Mcdonough D.O. LAB BLOOD YAZAN KATHI Performing Organization Address [facility] Co de Phone Number [facility] [address] [place] [address] * (ABNORMAL) CBC with Differential, Blood (08/19/2023 3:49 PM CDT) [facility] Hemoglobin 11.7(L) 13.2 - 16.6 g/dL 08/19/2023 [...] Norman Mcdonough D.O. LAB BLOOD ADD-O N [facility] [address] [place] [address], [facility] STMA [facility] [address] [place] [address] [facility] [address] [place] [address] * (ABNORMAL) Basic Metabolic Panel (08/19/2023 3:49 [...] Norman Mcdonough D.O. LAB BLOOD ADD-O N [facility] [address] [place] [address], [facility] [address] [place] [address] * DX Chest AP or PA and [...] CDT) Ventricular Rate ECG/Min 89 BPM MUSE MA Interval 130 ms MUSE QRSD Interval 78 ms MUSE QT Interval 358 ms MUSE QTC Interval 435 ms MUSE P [place] 40 degrees MUSE R [place] 36 degrees MUSE T Wave [place] 81 degrees MUSE 08/19/2023 3:24 PM CDT [...] administration for fever, Starting on Sun08/19/23 at 7 aspirin chewable tablet 81 mg 81 mg, oral, Daily, First dose on Sun08/21/23 at 0900 Given 08/22/2023 8:06 AM CDT 81 mg Given 08/21/2023 8:02 AM CDT 81 mg atorvastatin tablet 80 mg (LIPITOR) 80 mg, oral, Daily at bedtime, First dose (after last modification) on Sun08/21/23 at 2100 Given 08/21/2023 9:22 PM CDT [address] tablet 10 mg (DULCOLAX) 10 mg, oral, Daily PRN, constipation, Starting on Sun08/19/23 at 2156, PO route preferred. Constipation unrelieved by docusate sodium (COLACE) if ordered. If results needed within 2 hours give rectal suppository if ordered. Swallow whole. Do NOT crush, chew, or split tablet. bisacodyL suppository 10 mg (DULCOLAX) 10 mg, rectal, Daily PRN, constipation, Starting on Sun08/19/23 at 2156, PO route preferred. Constipation unrelieved by docusate sodium (COLACE) if ordered. If results needed within 2 hours - give rectal suppository. calcium carbonate chewable tablet 400 mg of calcium (TUMS) 400 mg of calcium, oral, Every 2 hour PRN, indigestion, Not to exceed 12 tablets in 24 hours, Starting on Sun08/19/23 at 7, Doses listed are in mg of elemental [...] Given 08/20/2023 9:36 AM CDT 10 mcg fentaNYL injection 25 mcg (SUBLIMAZE) 25 mcg, intravenous, Every 2 min PRN, [...] Starting on Sun08/21/23 at 1452, Intraprocedure (CV) Given 08/21/2023 3:10 PM CDT 25 mcg Given 08/21/2023 2:56 PM CDT 25 mcg ferrous sulfate tablet 65 mg of [...] 9:36 AM CDT 5 mg heparin (porcine) 1,000 unit/mL injection Code/trauma/sedation medication, Starting on Sun08/21/23 at 1505, Intraprocedure (CV) Given 08/21/2023 3:05 PM CDT 5,000 Units heparin (porcine) injection 5,000 Units 5,000 Units, [...] than 399: Call service writing insulin orders iohexoL 350 mg iodine/mL solution (OMNIPAQUE) Code/trauma/sedation medication, Starting on Sun08/21/23 at 1512, Intraprocedure (CV) Given 08/21/2023 3:12 PM CDT 40 mL lidocaine 10 mg/mL (1 %) injection (XYLOCAINE) Code/trauma/sedation medication, Starting on Sun08/21/23 at 1458, Intraprocedure (CV) Given 08/21/2023 2:58 PM CDT 2 mL Right Wrist midazolam (PF) injection 0.25 mg (VERSED) 0.25 mg, intravenous, Every 2 min PRN, sedation, RASS -2, Starting on Sun08/21/23 at 1452, Intraprocedure (CV), May repeat every 2 minutes to a maximum of 5 mg. Do not give if respiratory rate is less than 8 breaths/minute. Given 08/21/2023 2:56 PM CDT [address] tablet 40 mg (PROTONIX) 40 [...] intravenous, As needed, line care, Starting on [place] 08/19/23 at 1520, Peripheral Intravenous Catheter and Rapid Infusion Catheter, prior to blood sampling, post blood transfusion or post blood sampling sodium chloride 0.9 % injection 10 mL 10 mL, intravenous, As needed, line care, Starting on [place] 08/19/23 at 2154, Peripheral Intravenous Catheter and Rapid Infusion Catheter, prior to blood sampling, post blood transfusion or post blood sampling sodium chloride 0.9 % injection 3 mL 3 mL, intravenous, As needed, line care, Starting on [place] 08/19/23 at 1520, Prior to and following infusion and between multiple consecutive infusions: sodium chloride 0.9 % injection sodium chloride 0.9 % injection 3 mL 3 mL, intravenous, Every 12 hours scheduled, First dose on [place] 08/19/23 at 2100, Peripheral Intravenous Catheter and Rapid Infusion Catheter, when no infusion to maintain patency Given 08/22/2023 9: 55 AM CDT 3 mL Given 08/21/2023 9:26 PM CDT 3 mL Given 08/20/2023 11:04 AM CDT 3 mL sodium chloride 0.9 % injection 3 mL 3 mL, intravenous, As needed, line care, Starting on [place] 08/19/23 at 2154, Prior to and following [...] (CV) 1414 (Given - Provider: Quin Toro RJarrettN.) aspirin chewable tablet 81 mg 81 mg, oral, Daily, First dose on Sun08/21/23 at 0900 0802 (Given - Provider: Kleber Sharma RSammi)1404 (JAN Hold - Provider: Transfer Provider, Automatic - Reason: Patient not available)1604 ([facility] Unhold - Provider: Transfer Provider, Automatic) 0806 (Given - Provider: Kleber Sharma RJarrettN.) aspirin tablet 325 mg (CANCELED) 325 mg, oral, Daily, First dose on Sun08/20/23 at 0900 0936 (Given - Provider: Kassie Ahumada M.S., M.A., R.N., [facility]) atorvastatin tablet 40 mg (LIPITOR) (CANCELED) 40 mg, oral, Daily at bedtime, First dose on Sun08/19/23 at 2200 2045 (Given - Provider: Pamela Jason R.N.) 1404 (JAN Hold - Provider: Transfer Provider, Automatic - Reason: Patient not available)1604 ([facility] Unhold - Provider: Transfer Provider, Automatic) atorvastatin [...] - Provider: Kassie [facility]ada M.S., M.Keri., R.N., [facility] 0802 (Given - Provider: Kleber Sharma R.N.)1404 (JAN Hold - Provider: Transfer Provider, Automatic - Reason: Patient not available)1604 (JAN Un[place] - Provider: Transfer Provider, Automatic) 0806 (Given - Provider: Kleber Sharma R.N.) ferrous sulfate tablet 65 mg of iron 65 mg of iron, oral, Daily, First dose on Sun08/20/23 at 0900 0936 (Given - Provider: Kassie Ahumada M.S., MGibran., R.N., [facility]) 0802 (Given - Provider: Kleber Sharma R.N.)1404 (JAN Hold - Provider: Transfer Provider, Automatic - Reason: Patient not available)1604 (J[facility] [place] - Provider: Transfer Provider, Automatic) 0806 (Given - Provider: Kleber Sharma R.N.) finasteride tablet 5 mg (PROSCAR) 5 mg, oral, Daily, First dose on Sun08/20/23 at 0900, See tube feeding guidelines for tube feeding administration instructions. 0936 (Given - Provider: Kassie Ahumada M.S., Salome, R.N., [facility]) 0802 (Given - Provider: Kleber Sharma R.N.)1404 (JAN Hold - Provider: Transfer Provider, Automatic - Reason: Patient not available)1604 ([facility] Unhold - Provider: Transfer Provider, [...] available)1604 (MAR Unhold - Provider: Transfer Provider, Automatic)1617 (Given - Provider: Kleber M Sharma, R.N.)2122 (Given - Provider: Felipe EarlyNJarrett) 0805 (Given - Provider: Kleber Sharma R.N.) [...] Ahumada M.S., M.A., R.N., PCCN - Reason: Order parameters not met)1250 (Not Given - Provider: Kassie Ahumada M.S., M.A., R.N., PCCN - Reason: See Provider Order - Comment: Pt ate, provider stated to not give insulin)1746 (Not Given - Provider: Felipe JacobsonNJarrett - Reason: Order parameters not met) 0746 [...] available)1604 (J[facility] [place] - Provider: Transfer Provider, Automatic)2121 (Not Given - Provider: Reggie Robertson R.N. [...] - Provider: Kassie Ah[facility]ada M.S., M.A., R.N., [facility]) pantoprazole DR tablet 40 mg (PROTONIX) 40 [...] - Provider: Kassie Ahumada M.S., M.A., R.N., [facility])1610 (Given - Provider: Yasmine Caba RJarrettNJarrett)204 (Given - Provider: Pamela Jason R.N.) 0802 (Given - Provider: Kleber Sharma R.N.)1404 (JAN Hold - Provider: Transfer Provider, Automatic - Reason: Patient not available)160 ([facility] Unhold - Provider: Transfer Provider, Automatic)161 (Given - Provider: Kleber Sharma R.N.)212 (Given - Provider: Reggie Robertson R.N.) 0806 (Given - Provider: Kleber Sharma R.N.) sodium chloride 0.9 % injection 3 mL 3 mL, intravenous, Every 12 hours scheduled, First dose on Sun08/19/23 at 2100, Peripheral Intravenous Catheter and Rapid Infusion Catheter, when no infusion to maintain patency 1104 (Given - Provider: Kassie Ahumada M.S., M.A., R.N., [facility])2052 (Not Given - Provider: Pamela Jason R.N. - Reason: Other - Comment: Duplicate order) 0918 (Not Given - Provider: Kleber Sharma R.N. - Reason: Order parameters not met)1404 ([facility] Hold - Provider: Transfer Provider, Automatic - Reason: Patient not available)160 ([facility] Unhold - Provider: Transfer Provider, Automatic)2125 (Given - Provider: Reggie Robertson R.N.) 0955 (Given - Provider: Kleber Sharma R.N.) sodium chloride 0.9 % injection 3 mL 3 mL, intravenous, Every 12 hours scheduled, First dose on Sun08/20/23 at 0900, Peripheral Intravenous Catheter and Rapid Infusion Catheter, when no infusion to maintain patency 1103 (Given - Provider: Kassie Ahumada M.S., M.A., R.N., [facility]2052 (Given - Provider: Pamela Jason R.N.) 0917 (Given - Provider: Kleber Sharma R.N.)1404 (JAN Hold - Provider: Transfer Provider, Automatic - Reason: Patient not available)160 ([facility] Unhold - Provider: Transfer Provider, Automatic)2125 (Given - Provider: Reggie O Mayaba, R.N.) 0955 (Given - Provider: Kleber Sharma R.N.) tamsulosin 24 hr capsule 0.4 mg (FLOMAX) 0.4 mg, oral, Daily, First dose on 08/20/23 at 0900, Swallow whole. Do NOT crush, chew or open capsule. 0936 (Given - Provider: Kassie Ahumada M.S., M.A., R.N., [facility]) 0802 (Given - Provider: Kleber Sharma R.N.)1404 ([facility] Hold - Provider: Transfer Provider, Automatic - Reason: Patient not available)1604 ([facility] Unhold - Provider: Transfer Provider, Automatic) 0806 (Given - Provider: Kleber Sharma R.N.) PRN Medication Order 08/20/2023 08/21/2023 08/22/2023 acetaminophen tablet 500 mg (TYLENOL) 500 mg, oral, Every 6 hours PRN, mild pain or score 1-3 of 10, fever, Notify service prior to first administration for fever, Starting on 08/19/23 at 2157 1404 ([facility] Hold - Provider: Transfer Provider, Automatic - Reason: Patient not available)1604 ([facility] Unhold - Provider: Transfer Provider, Automatic) bisacodyL DR tablet 10 mg (DULCOLAX) 10 mg, oral, Daily PRN, constipation, Starting on 08/19/23 at 2157, PO route preferred. Constipation unrelieved by docusate sodium (COLACE) if ordered. If results needed within 2 hours give rectal suppository if ordered. Swallow whole. Do NOT crush, chew, or split tablet. 1404 ([facility] Hold - Provider: Transfer Provider, Automatic - Reason: Patient not available)1604 ([facility] Unhold - Provider: Transfer Provider, Automatic) bisacodyL suppository 10 mg (DULCOLAX) 10 mg, rectal, Daily PRN, constipation, Starting on 08/19/23 at 2157, PO route preferred. Constipation unrelieved by docusate sodium (COLACE) if ordered. If results needed within 2 hours - give rectal suppository. 1404 ([facility] Hold - Provider: Transfer Provider, Automatic - Reason: Patient not available)1604 ([facility] Unhold - Provider: Transfer Provider, Automatic) calcium carbonate chewable tablet 400 mg of calcium (TUMS) 400 mg of calcium, oral, Every 2 hour PRN, indigestion, Not to exceed 12 tablets in 24 hours, Starting on Sun08/19/23 at 2157, Doses listed are in mg of elemental calcium. Take with food. 500 mg calcium carbonate contains 200 mg of elemental calcium. 1404 (JAN Hold - Provider: Transfer Provider, Automatic - Reason: Patient not available)1604 ([facility] Unhold - Provider: Transfer Provider, Automatic) fentaNYL [...] (CV) 1456 (Given - Provider: Yadira Chi R.N.)1510 (Given - Provider: Yadira Chi R.N.) heparin (porcine) 1,000 unit/mL injection (CANCELED) Code/trauma/sedation [...] min PRN, sedation, RASS -2, Starting on Sun08/21/23 at 1452, Intraprocedure (CV), May repeat every 2 minutes to a maximum of 5 mg. Do not give if respiratory rate is less than 8 breaths/minute. 1456 (Given - Provider: Yadira Chi R.N.) sodium chloride 0.9 % injection 10 mL 10 mL, intravenous, As needed, line care, Starting on 08/19/23 at 1520, Peripheral Intravenous Catheter and Rapid Infusion Catheter, prior to blood sampling, post blood transfusion or post blood sampling 1404 ([facility] Hold - Provider: Transfer Provider, Automatic - Reason: Patient not available)1604 ([facility] Unhold - Provider: Transfer Provider, Automatic) sodium chloride 0.9 % injection 10 mL 10 mL, intravenous, As needed, line care, Starting on 08/19/23 at 2154, Peripheral Intravenous Catheter and Rapid Infusion Catheter, prior to blood sampling, post blood transfusion or post blood sampling 1404 ([facility] Hold - Provider: Transfer Provider, Automatic - Reason: Patient not available)1604 ([facility] Unhold - Provider: Transfer Provider, Automatic) sodium chloride 0.9 % injection 3 mL 3 mL, intravenous, As needed, line care, Starting on 08/19/23 at 1520, Prior to and following infusion and between multiple consecutive infusions: sodium chloride 0.9 % injection 1404 ([facility] Hold - Provider: Transfer Provider, Automatic - Reason: Patient not available)1604 ([facility] Unhold - Provider: Transfer Provider, Automatic) sodium chloride 0.9 % injection 3 mL 3 mL, intravenous, As needed, line care, Starting on 08/19/23 at 2154, Prior to and following infusion and between multiple consecutive infusions: sodium chloride 0.9 % injection 1404 ([facility] Hold - Provider: Transfer Provider, Automatic - Reason: Patient not available)1604 ([facility] Unhold - Provider: Transfer Provider, Automatic) documented in this encounter Additional Health Concerns Assessment Noted Time PHQ-9 Depression Total Score: 0 08/20/20 23 12:00 PM CDT documented as of this encounter Care Teams 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
== END 2023-11-29 13:37 | disposition home or self-care (01) ==
LOC: NFLDREF 12-04 12:06
PROVIDERS: PCP Internal Medicine; Referring Provider Internal Medicine; Visit Provider Internal Medicine Nephrology
DX: I10 Essential (primary) hypertension (principal); N18.4 Chronic kidney disease, stage 4 (severe); D63.8 Anemia in other chronic diseases classified elsewhere
CPT/HCPCS: 80061; 80069; 82043; 82570; 82728; 84165

== ENCOUNTER 2023-12-06 11:45 | Outpatient (CLI) | payer MEDICARE, SELFPAY ==
--- OUTSIDE RECORDS SUMMARY | 2023-12-07 11:20 | XMS_ITS | Clinical Summary ---
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 Primary Care Provider [phone] Source Comments Patient records contain information from all sites at [facility]. For routine questions regarding patient records, call [phone] during business hours, M-F 8:00 AM - 5:00 PM Central Time. Record requests for emergency care only can be directed to [phone] at any time.[facility] Allergies No known active allergies Medications Medication [...] Active Problems Problem Noted Date Diagnosed Date Consumer Affairs Director (Current) Anticoagulant Treatment 09/13 Bypass Coronary Artery Graft Status Post 023 Cardiac Surgery Status Post 09/24/2023 Effusion Pleural 09/24/2023 Device Cardiac Status Post 09/23/2023 Overview: Previously placed loop recorder Therapy Skilled Nursing Antiplatelet 09/22/2023 Coronary Arterial Bypass Graft Status [...] Orders Only Department of Cardiovascular Medicine in [place], [place] [address] [place] [address] Gudelia Soto M.D. Stenosis Aortic Valve Acquired (Primary Dx) 4 Clinical Communication Department of Cardiovascular Medicine in [place], [place] [address] [place] [address] Bethany Downs R.N. Triage 4 2:00 PM INFORMATION RECEPTIONIST External Outreach Division of Nephrology and Hypertension in [place], [place] [address] [place] [address] Mare Arauz M.D., Ph.D. Congestive Heart Failure (HCC) (Primary Dx) 4 Orders Only Division of Nephrology and Hypertension in [place], [place] [address] [place] [address] Mare Arauz M.D., Ph.D. Stenosis Aortic Valve Acquired (Primary Dx) 4 Clinical Communication Division of Nephrology and Hypertension in [place], [place] [address] [place] [phone] Mare Arauz M.D., Ph.D. Med Question (Priority 2) 4 Clinical Communication Department of Anticoagulation in [place], [place] [address] [place] [phone] Edna Gamble RMihir. Anticoagulation 4 Clinical Communication Department of Anticoagulation in [place], [place] [address] [place] [phone] Lexi Carson Anticoagulation (Unable to reach) 3 Clinical Communication Division of Nephrology and Hypertension in [place], [place] [address] [place] [phone] Mare Arauz M.D., Ph.D. 3 3:00 PM INFORMATION RECEPTIONIST Anticoagulation Visit Department of Anticoagulation in [place], [place] [address] [place] [phone] Kylah Crum M.D. Diabetes Mellitus Type 2 (HCC) (Primary Dx); 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; Cardiac Surgery Status Post; Bypass Coronary Artery Graft Status Post; Prosthesis Aortic Valve; Consumer Affairs Director (Current) Anticoagulant Treatment; Monitoring For Therapeutic Drug Therapy 3 12:33 PM INFORMATION RECEPTIONIST - 3 11:59 PM INFORMATION RECEPTIONIST Hospital Encounter Department of Laboratory Medicine in [address] [phone] Kylah Crum M.D. 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; Cardiac Surgery Status Post; Bypass Coronary Artery Graft Status Post; Prosthesis Aortic Valve; Diabetes Mellitus Type 2 (HCC) Discharge Disposition: Home or Self Care 3 Clinical Communication Department of Cardiovascular Medicine in [place], [place] [address] [place] [address] Gudelia Soto M.D. 3 Clinical Communication Department of Cardiovascular Surgery in [place], [place] [address] [place] [phone] Sarah Miller M.D., M.P.H. Med Question (Refills or stopping medications) 3 8:00 AM INFORMATION RECEPTIONIST External Outreach Division of Nephrology and Hypertension in [place], [place] [address] [place] [address] Mare Arauz M.D., Ph.D. Chronic Kidney Disease (CKD), Stage 3b Glomerular Filtration Rate (GFR) 30 To 44 (HCC) (Primary Dx); Hypertension Essential Primary 3 Clinical Communication Department of Anticoagulation in [place], [place] [address] [place] [phone] Roberto Kwok, M.P.H., R.N. 3 4:10 PM INFORMATION RECEPTIONIST Anticoagulation Visit Department of Anticoagulation in [place], [place] [address] [place] [phone] Kylah Crum M.D. Diabetes Mellitus Type 2 (HCC) (Primary Dx); 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; Cardiac Surgery Status Post; Bypass Coronary Artery Graft Status Post; Prosthesis Aortic Valve; Skilled Nursing (Current) Anticoagulant Treatment; Monitoring For Therapeutic Drug Therapy 3 12:42 PM INFORMATION RECEPTIONIST - 3 11:59 PM INFORMATION RECEPTIONIST Hospital Encounter Department of Laboratory Medicine in [place], [place] [address] [place] [phone] Kylah Crum M.D. 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; Cardiac Surgery Status Post; Bypass Coronary Artery Graft Status Post; Prosthesis Aortic Valve; Diabetes Mellitus Type 2 (HCC); Consumer Affairs Director (Current) Anticoagulant Treatment; Monitoring For Therapeutic Drug Therapy Discharge Disposition: Home or Self Care 3 11:30 AM INFORMATION RECEPTIONIST Anticoagulation Visit Department of Anticoagulation in [place], [place] [address] [place] [phone] Kylah Crum M.D. Diabetes Mellitus Type 2 (HCC) (Primary Dx); 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; Cardiac Surgery Status Post; Bypass Coronary Artery Graft Status Post; Prosthesis Aortic Valve; Consumer Affairs Director (Current) Anticoagulant Treatment; Monitoring For Therapeutic Drug Therapy 3 10:50 AM INFORMATION RECEPTIONIST - 3 11:59 PM INFORMATION RECEPTIONIST Hospital Encounter Department of Laboratory Medicine in [place], [place] [address] [place] [address] Kylah Crum M.D. 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; Cardiac Surgery Status Post; Bypass Coronary Artery Graft Status Post; Prosthesis Aortic Valve; Skilled Nursing (Current) Anticoagulant Treatment; Monitoring For Therapeutic Drug Therapy Discharge Disposition: Home or Self Care 3 2:00 PM INFORMATION RECEPTIONIST Anticoagulation Visit Department of Anticoagulation in [place], [place] [address] [place] [address] Kylah Crum M.D. Prosthesis Aortic Valve (Primary Dx); 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; Cardiac Surgery Status Post; Bypass Coronary Artery Graft Status Post; Consumer Affairs Director (Current) Anticoagulant Treatment; Monitoring For Therapeutic Drug Therapy; Diabetes Mellitus Type 2 (HCC) 3 11:20 AM INFORMATION RECEPTIONIST - 3 11:59 PM INFORMATION RECEPTIONIST Hospital Encounter Department of Laboratory Medicine in [place], [place] [address] [place] [address] Kylah Crum M.D. 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; Cardiac Surgery Status Post; Bypass Coronary Artery Graft Status Post; Prosthesis Aortic Valve; Consumer Affairs Director (Current) Anticoagulant Treatment; Monitoring For Therapeutic Drug Therapy Discharge Disposition: Home or Self Care 3 2:00 PM INFORMATION RECEPTIONIST Anticoagulation Visit Department of Anticoagulation in [place], [place] [address] [place] [address] Kylah Crum M.D. Prosthesis Aortic Valve (Primary Dx); 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; Cardiac Surgery Status Post; Bypass Coronary Artery Graft Status Post; Consumer Affairs Director (Current) Anticoagulant Treatment; Monitoring For Therapeutic Drug Therapy 3 11:00 AM INFORMATION RECEPTIONIST - 3 11:59 PM INFORMATION RECEPTIONIST Hospital Encounter Department of Laboratory Medicine in [place], [place] [address] [place] [address] Kylah Crum M.D. 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; Cardiac Surgery Status Post; Bypass Coronary Artery Graft Status Post; Prosthesis Aortic Valve; Skilled Nursing (Current) Anticoagulant Treatment; Monitoring For Therapeutic Drug Therapy Discharge Disposition: Home or Self Care 3 Orders Only [facility] Kylah Crum M.D. Screening Abdominal Aortic Aneurysm; Diabetes Mellitus Type 2 (HCC) 3 Episode Changes Department of Cardiovascular Medicine in [place], [place] [address] [place] [phone] Cony Calzada CEP 3 11:30 AM INFORMATION RECEPTIONIST Anticoagulation Visit Department of Anticoagulation in [place], [place] [address] [place] [phone] Kylah Crum M.D. Consumer Affairs Director (Current) Anticoagulant Treatment (Primary Dx); 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; Cardiac Surgery Status Post; Bypass Coronary Artery Graft Status Post; Prosthesis Aortic Valve; Monitoring For Therapeutic Drug Therapy 3 10:50 AM INFORMATION RECEPTIONIST - 3 11:59 PM INFORMATION RECEPTIONIST Hospital Encounter Department of Laboratory Medicine in [place], [place] [address] [place] [address] Kylah Crum M.D. 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; Cardiac Surgery Status Post; Bypass Coronary Artery Graft Status Post; Prosthesis Aortic Valve; Skilled Nursing (Current) Anticoagulant Treatment; Monitoring For Therapeutic Drug Therapy Discharge Disposition: Home or Self Care 3 3:00 PM INFORMATION RECEPTIONIST Anticoagulation Visit Department of Anticoagulation in [place], [place] [address] [place] [phone] Kylah Crum M.D. Skilled Nursing (Current) Anticoagulant Treatment (Primary Dx); 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; Cardiac Surgery Status Post; Bypass Coronary Artery Graft Status Post; Prosthesis Aortic Valve; Monitoring For Therapeutic Drug Therapy 3 12:36 PM INFORMATION RECEPTIONIST - 3 11:59 PM INFORMATION RECEPTIONIST Hospital Encounter Department of Laboratory Medicine in [place], [place] [address] [place] [address] Kylah Crum M.D. 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; Cardiac Surgery Status Post; Bypass Coronary Artery Graft Status Post; Prosthesis Aortic Valve; Consumer Affairs Director (Current) Anticoagulant Treatment; Monitoring For Therapeutic Drug Therapy Discharge Disposition: Home or Self Care 3 1:00 PM INFORMATION RECEPTIONIST Virtual Visit Department of Cardiovascular Surgery in [address] [phone] Mariama Monk APRN, C.N.PJarrett Cardiac Surgery Status Post (Primary Dx); 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; Prosthesis Aortic Valve; Skilled Nursing (Current) Anticoagulant Treatment 3 11:00 AM INFORMATION RECEPTIONIST Anticoagulation Visit Department of Anticoagulation in [place], [place] [address] [place] [phone] Kylah Crum M.D. Consumer Affairs Director (Current) Anticoagulant Treatment (Primary Dx); 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; Cardiac Surgery Status Post; Bypass Coronary Artery Graft Status Post; Prosthesis Aortic Valve; Monitoring For Therapeutic Drug Therapy 3 10:20 AM INFORMATION RECEPTIONIST - 3 11:59 PM INFORMATION RECEPTIONIST Hospital Encounter Department of Laboratory Medicine in [place], [place] [address] [place] [address] Kylah Crum M.D. 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; Cardiac Surgery Status Post; Bypass Coronary Artery Graft Status Post; Prosthesis Aortic Valve; Skilled Nursing (Current) Anticoagulant Treatment; Monitoring For Therapeutic Drug Therapy Discharge Disposition: Home or Self Care 3 1:30 PM INFORMATION RECEPTIONIST Telemedicine Department of Cardiovascular Surgery in [address] [phone] Laila Basurto P.A.-C. Yaw, Elissa J, APRN, C.N.P. Cardiac Surgery Status Post (Primary Dx); Bypass Coronary Artery Graft Status Post; Prosthesis Aortic Valve; 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; Coronary Artery Disease Without Angina Pectoris 3 4:45 PM INFORMATION RECEPTIONIST Internal E-Consult Division of Nephrology and Hypertension in [place], [place] [address] [place] [address] Pavan May M.D. Elevated Creatinine (Primary Dx); Failure Renal Acute (Acute Kidney Injury) (HCC) 3 Clinical Communication Department of [facility], [facility], [place], [place] [address] [place] [address] Kylah Crum M.D. Results 3 3:30 PM INFORMATION RECEPTIONIST Anticoagulation Visit Department of Anticoagulation in [place], [place] [address] [place] [address] Kylah Crum M.D. Consumer Affairs Director (Current) Anticoagulant Treatment (Primary Dx); 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; Cardiac Surgery Status Post; Bypass Coronary Artery Graft Status Post; Prosthesis Aortic Valve; Monitoring For Therapeutic Drug Therapy 3 11:51 AM INFORMATION RECEPTIONIST - 3 11:59 PM INFORMATION RECEPTIONIST Hospital Encounter Department of Laboratory Medicine in [address] [phone] Kylah Crum M.D. Chronic Kidney Disease Stage 4 Glomerular Filtration Rate 15-29 (HCC) Discharge Disposition: Home or Self Care 3 11:50 AM INFORMATION RECEPTIONIST Hospital Encounter Department of Laboratory Medicine in [address] [phone] Kylah Crum M.D. 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; Cardiac Surgery Status Post; Bypass Coronary Artery Graft Status Post; Prosthesis Aortic Valve Discharge Disposition: Home or Self Care 3 11:00 AM INFORMATION RECEPTIONIST Office Visit Department of [facility] Medicine, [facility], [address] [phone] Kylah Crum M.D. Chronic Kidney Disease Stage [...] 3 Clinical Communication Department of Anticoagulation in [place], [place] [address] [place] [phone] Ralf Peralta R.N. Anticoagulation (CCM enrollment) 3 Clinical Communication Department of Anticoagulation in [place], [place] [address] [place] [phone] Nidia Kuhn Anticoagulation (New enrollment) 3 1:33 PM INFORMATION RECEPTIONIST - 3 11:59 PM INFORMATION RECEPTIONIST Hospital Encounter Department of Laboratory Medicine in [place], [place] [address] [place] [address] Sammi Kothari, PIERRE, C.N.P., D.N.P. Prosthesis Aortic Valve Discharge Disposition: Home or Self Care 3 Clinical Communication Department of Cardiovascular Surgery in [place], [place] [address] [place] [phone] Sammi Kothari APRN, C.N.P., D.N.P. 3 Clinical Communication [facility] [address] [place] [phone] Sarah Miller M.D., M.P.H. 3 Clinical Communication Department of Anticoagulation in [place], [place] [address] [place] [phone] Edna Quinones R.N. Anticoagulation 3 Clinical Communication [facility] [address] [place] [phone] Sarah Miller M.D., M.P.H. 3 Clinical Communication [facility]ST [address] [phone] Sarah Miller M.D., M.P.H. 3 Clinical Communication [facility] [address] [place] [phone] Sarah Miller M.D., M.P.H. 3 Orders Only Preoperative Evaluation Center in [place], [place] [address] [place] [address] Fanny Villalobos APRN, C.NJarrettP., D.N.P. 3 7:30 AM INFORMATION RECEPTIONIST [place] [address] [place] [phone] Rowena Antonio M.D. Snyder, Rhonda K, R.R.T., L.R.T. 3 7:00 AM INFORMATION RECEPTIONIST Ancillary Procedure Department of Anesthesiology 3 7:00 AM INFORMATION RECEPTIONIST - 3 3:27 PM INFORMATION RECEPTIONIST Surgery [facility] OR [address] [place] [phone] Sarah Miller M.D., M.P.H. REPLACEMENT AORTIC VALVE, POSSIBLE AORTIC ROOT ENLARGEMENT. (On-X Conform 23mm Valve) 3 6:45 AM INFORMATION RECEPTIONIST Ancillary Procedure [facility] OR [address] [place] [phone] Sarah Miller M.D., M.P.H. 3 5:38 AM INFORMATION RECEPTIONIST - 3 4:29 PM INFORMATION RECEPTIONIST Hospital Encounter [facility], [facility], [facility], Fifth Floor [address] [place] [phone] Sarah Miller M.D., M.P.H. Acquired Aortic Valve [...] Home or Self Care 3 9:45 AM INFORMATION RECEPTIONIST Office Visit Department of Cardiovascular Surgery in [address] [phone] Elvi Oliva MPAS, PJarrettA.-C. 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 Dona Kong, R.Danny. Stenosis Aortic Valve Acquired; Acquired Aortic Valve Disorder 3 12:40 PM CDT Virtual Visit Department of Pharmacy in [address] [phone] Norman Roca APRN, C.N.P., D.N.P. Gena May, PharmLeonid., R.Ph. Stenosis Aortic Valve Acquired; Acquired Aortic Valve Disorder 3 Clinical Communication Department of Dental Specialties in [place], [place] [address] [place] [phone] Duc Bowling D.D.S. 3 8:45 AM CDT Telemedicine Preoperative Evaluation Center in [place], [place] [address] [place] [phone] Norman Roca APRN, C.N.P., D.N.P. Fanny Villalobos APRN, C.N.P., D.N.P. 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 Glomerular Filtration Rate (GFR) 30 To 44 (HCC) from Last 3 Months Family History Medical [...] Comments Blood Pressure 108/65 10/01/2023 11:08 AM INFORMATION RECEPTIONIST aveage Pulse 76 10/01/2023 11:08 AM INFORMATION RECEPTIONIST Temperature 36.1 ??C (96.9 ??F) 10/01/2023 1 1:08 AM INFORMATION RECEPTIONIST Respiratory Rate 20 10/01/2023 11:0 8 AM INFORMATION RECEPTIONIST Oxygen Saturation 98% 10/01/2023 11: 08 AM INFORMATION RECEPTIONIST Inhaled Oxygen Concentration - - Weight 90.2 kg (198 lb 11.9 oz) 023 11:08 AM INFORMATION RECEPTIONIST Height 172.4 cm (5' 7.87) 10/01/2023 1 1:08 AM INFORMATION RECEPTIONIST Body Mass Index 30.33 10/01/2023 11:08 AM INFORMATION RECEPTIONIST Plan of Treatment Upcoming Encounters Date Type Department Care Team (Latest Contact Info) Description 12/21/2023 10:15 AM INFORMATION RECEPTIONIST Clinical Communication Virtual Review in [place], [place] [address] [place] [address] 12/24/2023 2:00 PM INFORMATION RECEPTIONIST Comprehensive Visit Department of Cardiovascular Medicine in [place], [place] [address] [place] [phone] Gudelia Soto M.D. [address] [place] [phone] 01/01/2024 3:45 PM INFORMATION RECEPTIONIST Comprehensive Visit Division of Hematology in [place], [place] [address] [place] [phone] Billy Segal APRN, C.N.P., D.N.P. [address] [place] [phone] Health Maintenance Due Date Last Done Comments [...] Screening 11/21/2032 Medical Devices Implanted Type Area Education Liaison Device Identifier Shelf Expiration Date Model / Serial / Lot Vlv Aort Cnf [facility] 23 - [id number] - [id number] Implanted:Qty : 1 on 09/19/2023 by Sarah Miller M.D., M.P.H. at [facility] Cardiac Valve Prosthesis N/A: Aortic Valve [employer] (Prev. [employer]) 2028 ONXACE- / [id number] / [employer] Tfln 1x6 - [id number] Implanted:Qty : 1 on 09/19/2023 by Sarah Miller M.D., M.P.H. at [facility] Hardware e.g. pins/screws/r ods N/A: Chest [employer] [id number] / / Procedures Procedure Name Priority Date/Time Associated Diagnosis Comments OUTSIDE DX CHEST Routine 11/11/2023 8:30 AM INFORMATION RECEPTIONIST OUTSIDE DX CHEST Routine 11/08/2023 3:25 PM INFORMATION RECEPTIONIST INR REFLEX, POCT, B Routine 11/02/2023 12:42 PM INFORMATION RECEPTIONIST 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 Cardiac Surgery Status Post Bypass Coronary Artery Graft Status Post Prosthesis Aortic Valve Diabetes Mellitus Type 2 (HCC) OUTSIDE DX CHEST Routine 10/31/2023 9:00 AM INFORMATION RECEPTIONIST INR REFLEX, POCT, B Routine 10/29/2023 12:50 PM INFORMATION RECEPTIONIST 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 Cardiac Surgery Status Post Bypass Coronary Artery Graft Status Post Prosthesis Aortic Valve Diabetes Mellitus Type 2 (HCC) Skilled Nursing (Current) Anticoagulant Treatment Monitoring For Therapeutic Drug Therapy INR REFLEX, POCT, B Routine 10/26/2023 11:36 AM INFORMATION RECEPTIONIST 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 Cardiac Surgery Status Post Bypass Coronary Artery Graft Status Post Prosthesis Aortic Valve Consumer Affairs Director (Current) Anticoagulant Treatment Monitoring For Therapeutic Drug Therapy INR REFLEX, POCT, B Routine 10/22/2023 11:32 AM INFORMATION RECEPTIONIST 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 Cardiac Surgery Status Post Bypass Coronary Artery Graft Status Post Prosthesis Aortic Valve Consumer Affairs Director (Current) Anticoagulant Treatment Monitoring For Therapeutic Drug Therapy INR REFLEX, POCT, B Routine 10/17/2023 11:22 AM INFORMATION RECEPTIONIST 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 Cardiac Surgery Status Post Bypass Coronary Artery Graft Status Post Prosthesis Aortic Valve Skilled Nursing (Current) Anticoagulant Treatment Monitoring For Therapeutic Drug Therapy INR REFLEX, POCT, B Routine 10/12/2023 11:03 AM INFORMATION RECEPTIONIST 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 Cardiac Surgery Status Post Bypass Coronary Artery Graft Status Post Prosthesis Aortic Valve Skilled Nursing (Current) Anticoagulant Treatment Monitoring For Therapeutic Drug Therapy INR REFLEX, POCT, B Routine 10/08/2023 12:52 PM INFORMATION RECEPTIONIST 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 Cardiac Surgery Status Post Bypass Coronary Artery Graft Status Post Prosthesis Aortic Valve Skilled Nursing (Current) Anticoagulant Treatment Monitoring For Therapeutic Drug Therapy INR REFLEX, POCT, B Routine 10/05/2023 10:35 AM INFORMATION RECEPTIONIST 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 Cardiac Surgery Status Post Bypass Coronary Artery Graft Status Post Prosthesis Aortic Valve Skilled Nursing (Current) Anticoagulant Treatment Monitoring For Therapeutic Drug Therapy INR REFLEX, POCT, B Routine 10/01/2023 12:02 PM INFORMATION RECEPTIONIST 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 Cardiac Surgery Status Post Bypass Coronary Artery Graft Status Post Prosthesis Aortic Valve BASIC METABOLIC PANEL, S/P Routine 10/01/2023 12:02 PM INFORMATION RECEPTIONIST Chronic Kidney Disease Stage 4 Glomerular Filtration Rate 15-29 (HCC) PROTHROMBIN TIME (PT), P Routine 09/28/2023 1:41 PM INFORMATION RECEPTIONIST Prosthesis Aortic Valve GLUCOSE POCT, B Routine 09/26/2023 11:37 AM INFORMATION RECEPTIONIST GLUCOSE POCT, B Routine 09/26/2023 7:55 AM INFORMATION RECEPTIONIST BASIC METABOLIC PANEL, S/P Routine 09/26/2023 6:58 AM INFORMATION RECEPTIONIST PROTHROMBIN TIME (PT), P Routine 09/26/2023 6:58 AM INFORMATION RECEPTIONIST CBC WITHOUT DIFFERENTIAL, B Routine 09/26/2023 6:58 AM INFORMATION RECEPTIONIST GLUCOSE POCT, B Routine 09/25/2023 8:25 PM INFORMATION RECEPTIONIST GLUCOSE POCT, B Routine 09/25/2023 5:36 PM INFORMATION RECEPTIONIST GLUCOSE POCT, B Routine 09/25/2023 1:13 PM INFORMATION RECEPTIONIST BASIC METABOLIC PANEL, S/P Routine 09/25/2023 9:26 AM INFORMATION RECEPTIONIST PROTHROMBIN TIME (PT), P Routine 09/25/2023 9:26 AM INFORMATION RECEPTIONIST CBC WITHOUT DIFFERENTIAL, B Routine 09/25/2023 9:26 AM INFORMATION RECEPTIONIST GLUCOSE POCT, B Routine 09/25/2023 8:10 AM INFORMATION RECEPTIONIST DX CHEST AP OR PA AND LATERAL 2 VIEWS RAD - Routine (most inpatients and all outpatients) 09/25/2023 7:26 AM INFORMATION RECEPTIONIST ECG Routine 09/25/2023 4:55 AM INFORMATION RECEPTIONIST GLUCOSE POCT, B Routine 09/24/2023 8:33 PM INFORMATION RECEPTIONIST GLUCOSE POCT, B Routine 09/24/2023 4:44 PM INFORMATION RECEPTIONIST NOCTURNAL OXYGEN STUDY - RT Routine 09/24/2023 3:46 PM INFORMATION RECEPTIONIST (TTE) 2D ECHO DOPPLER COLOR Routine 09/24/2023 3:26 PM INFORMATION RECEPTIONIST GLUCOSE POCT, B Routine 09/24/2023 12:43 PM INFORMATION RECEPTIONIST RT TO ARRANGE FOR HOME DME Routine 09/24/2023 11:14 AM INFORMATION RECEPTIONIST GLUCOSE POCT, B Routine 09/24/2023 7:19 AM INFORMATION RECEPTIONIST BASIC METABOLIC PANEL, S/P Routine 09/24/2023 6:49 AM INFORMATION RECEPTIONIST PROTHROMBIN TIME (PT), P Routine 09/24/2023 6:49 AM INFORMATION RECEPTIONIST CBC WITHOUT DIFFERENTIAL, B Routine 09/24/2023 6:49 AM INFORMATION RECEPTIONIST GLUCOSE POCT, B Routine 09/23/2023 9:38 PM INFORMATION RECEPTIONIST GLUCOSE POCT, B Routine 09/23/2023 5:02 PM INFORMATION RECEPTIONIST BASIC METABOLIC PANEL, S/P STAT 09/23/2023 3:44 PM INFORMATION RECEPTIONIST HEMOGLOBIN, B STAT 09/23/2023 3:44 PM INFORMATION RECEPTIONIST PROTHROMBIN TIME (PT), P STAT 09/23/2023 3:44 PM INFORMATION RECEPTIONIST GLUCOSE POCT, B Routine 09/23/2023 12:19 PM INFORMATION RECEPTIONIST DX CHEST AP OR PA AND LATERAL 2 VIEWS RAD - Routine (most inpatients and all outpatients) 09/23/2023 8:44 AM INFORMATION RECEPTIONIST BASIC METABOLIC PANEL, S/P Routine 09/23/2023 7:34 AM INFORMATION RECEPTIONIST PROTHROMBIN TIME (PT), P Routine 09/23/2023 7:34 AM INFORMATION RECEPTIONIST CBC WITHOUT DIFFERENTIAL, B Routine 09/23/2023 7:34 AM INFORMATION RECEPTIONIST HEPATIC FUNCTION PANEL, S Routine 09/23/2023 7:31 AM INFORMATION RECEPTIONIST GLUCOSE POCT, B Routine 09/23/2023 7:24 AM INFORMATION RECEPTIONIST BASIC METABOLIC PANEL, S/P STAT 09/22/2023 11:14 PM INFORMATION RECEPTIONIST CBC WITHOUT DIFFERENTIAL, B STAT 09/22/2023 11:14 PM INFORMATION RECEPTIONIST GLUCOSE POCT, B Routine 09/22/2023 9:29 PM INFORMATION RECEPTIONIST RESPIRATORY ASSESS AND TREAT Routine 09/22/2023 2:00 PM INFORMATION RECEPTIONIST TRANSFUSE RED BLOOD CELLS Routine 09/22/2023 2:00 PM INFORMATION RECEPTIONIST GLUCOSE POCT, B Routine 09/22/2023 11:27 AM INFORMATION RECEPTIONIST GLUCOSE POCT, B Routine 09/22/2023 7:34 AM INFORMATION RECEPTIONIST BASIC METABOLIC PANEL, S/P Routine 09/22/2023 7:04 AM INFORMATION RECEPTIONIST PROTHROMBIN TIME (PT), P Routine 09/22/2023 7:04 AM INFORMATION RECEPTIONIST CBC WITHOUT DIFFERENTIAL, B Routine 09/22/2023 7:04 AM INFORMATION RECEPTIONIST TYPE AND SCREEN Routine 09/22/2023 7:01 AM INFORMATION RECEPTIONIST GLUCOSE POCT, B Routine 09/21/2023 10:52 PM INFORMATION RECEPTIONIST GLUCOSE POCT, B Routine 09/21/2023 7:07 PM INFORMATION RECEPTIONIST RESPIRATORY ASSESS AND TREAT Routine 09/21/2023 2:00 PM INFORMATION RECEPTIONIST GLUCOSE POCT, B Routine 09/21/2023 11:27 AM INFORMATION RECEPTIONIST GLUCOSE POCT, B Routine 09/21/2023 8:50 AM INFORMATION RECEPTIONIST PROTHROMBIN TIME (PT), P STAT 09/21/2023 7:47 AM INFORMATION RECEPTIONIST PATIENT STATUS Timed 09/21/2023 6:35 AM INFORMATION RECEPTIONIST ABG W/COOX Timed 09/21/2023 6:35 AM INFORMATION RECEPTIONIST GLUCOSE POCT, B Routine 09/21/2023 6:31 AM INFORMATION RECEPTIONIST BASIC METABOLIC PANEL, S/P Timed 09/21/2023 5:11 AM INFORMATION RECEPTIONIST PHOSPHORUS (INORGANIC), S Timed 09/21/2023 5:11 AM INFORMATION RECEPTIONIST MAGNESIUM, S Timed 09/21/2023 5:11 AM INFORMATION RECEPTIONIST CBC WITHOUT DIFFERENTIAL, B Timed 09/21/2023 5:11 AM INFORMATION RECEPTIONIST BASIC METABOLIC PANEL, S/P Timed 09/21/2023 12:21 AM INFORMATION RECEPTIONIST GLUCOSE POCT, B Routine 09/20/2023 8:33 PM INFORMATION RECEPTIONIST POTASSIUM, S/P Timed 09/20/2023 8:33 PM INFORMATION RECEPTIONIST GLUCOSE POCT, B Routine 09/20/2023 4:31 PM INFORMATION RECEPTIONIST BASIC METABOLIC PANEL, S/P STAT 09/20/2023 4:27 PM INFORMATION RECEPTIONIST RESPIRATORY ASSESS AND TREAT Routine 09/20/2023 2:00 PM INFORMATION RECEPTIONIST GLUCOSE POCT, B Routine 09/20/2023 11:51 AM INFORMATION RECEPTIONIST BASIC METABOLIC PANEL, S/P STAT 09/20/2023 11:51 AM INFORMATION RECEPTIONIST GLUCOSE POCT, B Routine 09/20/2023 6:30 AM INFORMATION RECEPTIONIST PREPARE PLATELETS STAT 09/20/2023 6:3 0 AM INFORMATION RECEPTIONIST PREPARE CRYOPRECIPITATE STAT 09/20/2023 4:30 AM INFORMATION RECEPTIONIST LACTATE, B Timed 09/20/2023 4:11 AM INFORMATION RECEPTIONIST PATIENT STATUS Timed 09/20/2023 4:11 AM INFORMATION RECEPTIONIST ABG W/O COOX Timed 09/20/2023 4:11 AM INFORMATION RECEPTIONIST ACTIVATED PARTIAL THROMBOPLASTIN TIME (APTT), P Timed 09/20/2023 4:09 AM INFORMATION RECEPTIONIST PROTHROMBIN TIME (PT), P Timed 09/20/2023 4:09 AM INFORMATION RECEPTIONIST CBC WITHOUT DIFFERENTIAL, B Timed 09/20/2023 4:09 AM INFORMATION RECEPTIONIST MAGNESIUM, S Timed 09/20/2023 4:09 AM INFORMATION RECEPTIONIST BASIC METABOLIC PANEL, S/P Timed 09/20/2023 4:09 AM INFORMATION RECEPTIONIST DX CHEST PORTABLE WITH AM ROUNDS 1 VIEW RAD - Routine (most inpatients and all outpatients) 09/20/2023 3:33 AM INFORMATION RECEPTIONIST TIMP2/IGFBP7 MANJEET RISK SCORE, U Routine 09/20/2023 3:24 AM INFORMATION RECEPTIONIST PREPARE PLATELETS STAT 09/20/2023 2:3 0 AM INFORMATION RECEPTIONIST PREPARE FRESH FROZEN PLASMA STAT 09/20/2023 2:30 AM INFORMATION RECEPTIONIST PREPARE PLATELETS STAT 09/20/2023 2:3 0 AM INFORMATION RECEPTIONIST GLUCOSE POCT, B Routine 09/20/2023 1:17 AM INFORMATION RECEPTIONIST GLUCOSE POCT, B Routine 09/19/2023 11:58 PM INFORMATION RECEPTIONIST GLUCOSE POCT, B Routine 09/19/2023 11:20 PM INFORMATION RECEPTIONIST LACTATE, B Timed 09/19/2023 10:58 PM INFORMATION RECEPTIONIST RESPIRATORY ASSESS AND TREAT Routine 09/19/2023 10:30 PM INFORMATION RECEPTIONIST GLUCOSE POCT, B Routine 09/19/2023 10:27 PM INFORMATION RECEPTIONIST GLUCOSE POCT, B Routine 09/19/2023 9:24 PM INFORMATION RECEPTIONIST ECG Routine 09/19/2023 8:14 PM INFORMATION RECEPTIONIST GLUCOSE POCT, B Routine 09/19/2023 7:58 PM INFORMATION RECEPTIONIST LACTATE, B Timed 09/19/2023 7:43 PM INFORMATION RECEPTIONIST PATIENT STATUS Timed 09/19/2023 7:43 PM INFORMATION RECEPTIONIST LACTATE, B/P Timed 09/19/2023 7:43 PM INFORMATION RECEPTIONIST ABG W/COOX Timed 09/19/2023 7:43 PM INFORMATION RECEPTIONIST GLUCOSE POCT, B Routine 09/19/2023 6:57 PM INFORMATION RECEPTIONIST GLUCOSE POCT, B Routine 09/19/2023 6:23 PM INFORMATION RECEPTIONIST DX CHEST PORTABLE 1 VIEW 09/19/2023 5:45 PM INFORMATION RECEPTIONIST PATIENT STATUS STAT 09/19/2023 5:19 PM INFORMATION RECEPTIONIST FIBRINOGEN, P STAT 09/19/2023 5:19 PM INFORMATION RECEPTIONIST PROTHROMBIN TIME (PT), P STAT 09/19/2023 5:19 PM INFORMATION RECEPTIONIST ACTIVATED PARTIAL THROMBOPLASTIN TIME (APTT), P STAT 09/19/2023 5:19 PM INFORMATION RECEPTIONIST CBC WITHOUT DIFFERENTIAL, B STAT 09/19/2023 5:19 PM INFORMATION RECEPTIONIST LACTATE, B STAT 09/19/2023 5:19 PM INFORMATION RECEPTIONIST ABG W/COOX STAT 09/19/2023 5:19 PM INFORMATION RECEPTIONIST BASIC METABOLIC PANEL, S/P STAT 09/19/2023 5:19 PM INFORMATION RECEPTIONIST CYSTATIN C WITH EGFR Timed 09/19/2023 5:19 PM INFORMATION RECEPTIONIST Acquired Aortic Valve Disorder AIRWAY CARE Routine 09/19/2023 5:16 PM INFORMATION RECEPTIONIST MECHANICAL VENTILATOR Routine 09/19/2023 5:16 PM INFORMATION RECEPTIONIST RESPIRATORY ASSESS AND TREAT Routine 09/19/2023 5:07 PM INFORMATION RECEPTIONIST TRANSFUSE PLATELETS Routine 09/19/2023 4 :58 PM INFORMATION RECEPTIONIST PLATELETS, B STAT 09/19/2023 4:20 PM INFORMATION RECEPTIONIST PROTHROMBIN TIME (PT), P STAT 09/19/2023 4:20 PM INFORMATION RECEPTIONIST FIBRINOGEN, P STAT 09/19/2023 4:20 PM INFORMATION RECEPTIONIST ACTIVATED PARTIAL THROMBOPLASTIN TIME (APTT), P STAT 09/19/2023 4:20 PM INFORMATION RECEPTIONIST LACTATE, B STAT 09/19/2023 4:20 PM INFORMATION RECEPTIONIST GLUCOSE, WHOLE BLOOD STAT 09/19/2023 4:20 PM INFORMATION RECEPTIONIST POTASSIUM, B STAT 09/19/2023 4:20 PM INFORMATION RECEPTIONIST SODIUM, B STAT 09/19/2023 4:20 PM INFORMATION RECEPTIONIST CALCIUM, IONIZED, S/B STAT 09/19/2023 4:20 PM INFORMATION RECEPTIONIST ABG W/COOX STAT 09/19/2023 4:20 PM INFORMATION RECEPTIONIST TRANSFUSE CRYOPRECIPITATE Routine 09/19/2023 3:53 PM INFORMATION RECEPTIONIST TRANSFUSE CRYOPRECIPITATE Routine 09/19/2023 3:51 PM INFORMATION RECEPTIONIST TRANSFUSE RED BLOOD CELLS Routine 09/19/2023 3:50 PM INFORMATION RECEPTIONIST THROMBOELASTOGRAPH, KAOLIN, B STAT 09/19/2023 3:37 PM INFORMATION RECEPTIONIST THROMBOELASTOGRAPH, KAOLIN + HEPARINASE, B STAT 09/19/2023 3:37 PM INFORMATION RECEPTIONIST PLATELETS, B STAT 09/19/2023 3:37 PM INFORMATION RECEPTIONIST PROTHROMBIN TIME (PT), P STAT 09/19/2023 3:37 PM INFORMATION RECEPTIONIST FIBRINOGEN, P STAT 09/19/2023 3:37 PM INFORMATION RECEPTIONIST ACTIVATED PARTIAL THROMBOPLASTIN TIME (APTT), P STAT 09/19/2023 3:37 PM INFORMATION RECEPTIONIST LACTATE, B STAT 09/19/2023 3:37 PM INFORMATION RECEPTIONIST GLUCOSE, WHOLE BLOOD STAT 09/19/2023 3:37 PM INFORMATION RECEPTIONIST POTASSIUM, B STAT 09/19/2023 3:37 PM INFORMATION RECEPTIONIST SODIUM, B STAT 09/19/2023 3:37 PM INFORMATION RECEPTIONIST CALCIUM, IONIZED, S/B STAT 09/19/2023 3:37 PM INFORMATION RECEPTIONIST ABG W/COOX STAT 09/19/2023 3:37 PM INFORMATION RECEPTIONIST TRANSFUSE RED BLOOD CELLS Routine 09/19/2023 3:23 PM INFORMATION RECEPTIONIST PLATELETS, B STAT 09/19/2023 2:46 PM INFORMATION RECEPTIONIST PROTHROMBIN TIME (PT), P STAT 09/19/2023 2:46 PM INFORMATION RECEPTIONIST FIBRINOGEN, P STAT 09/19/2023 2:46 PM INFORMATION RECEPTIONIST ACTIVATED PARTIAL THROMBOPLASTIN TIME (APTT), P STAT 09/19/2023 2:46 PM INFORMATION RECEPTIONIST GLUCOSE, WHOLE BLOOD STAT 09/19/2023 2:46 PM INFORMATION RECEPTIONIST POTASSIUM, B STAT 09/19/2023 2:46 PM INFORMATION RECEPTIONIST SODIUM, B STAT 09/19/2023 2:46 PM INFORMATION RECEPTIONIST CALCIUM, IONIZED, S/B STAT 09/19/2023 2:46 PM INFORMATION RECEPTIONIST ABG W/COOX STAT 09/19/2023 2:46 PM INFORMATION RECEPTIONIST DX CHEST RETAINED SURGICAL ITEM 1 VIEW RAD - Emergent (Fastest; for the most critically ill patients) 09/19/2023 2:30 PM INFORMATION RECEPTIONIST TRANSFUSE PLATELETS Routine 09/19/2023 2 :15 PM INFORMATION RECEPTIONIST TRANSFUSE RED BLOOD CELLS Routine 09/19/2023 2:00 PM INFORMATION RECEPTIONIST PLATELETS, B STAT 09/19/2023 1:40 PM INFORMATION RECEPTIONIST PROTHROMBIN TIME (PT), P STAT 09/19/2023 1:40 PM INFORMATION RECEPTIONIST FIBRINOGEN, P STAT 09/19/2023 1:40 PM INFORMATION RECEPTIONIST ACTIVATED PARTIAL THROMBOPLASTIN TIME (APTT), P STAT 09/19/2023 1:40 PM INFORMATION RECEPTIONIST GLUCOSE, WHOLE BLOOD STAT 09/19/2023 1:40 PM INFORMATION RECEPTIONIST POTASSIUM, B STAT 09/19/2023 1:40 PM INFORMATION RECEPTIONIST SODIUM, B STAT 09/19/2023 1:40 PM INFORMATION RECEPTIONIST CALCIUM, IONIZED, S/B STAT 09/19/2023 1:40 PM INFORMATION RECEPTIONIST ABG W/COOX STAT 09/19/2023 1:40 PM INFORMATION RECEPTIONIST AUTOLOGOUS RED BLOOD CELLS-CELL SALVAGE Routine 09/19/2023 1:28 PM INFORMATION RECEPTIONIST TRANSFUSE FRESH FROZEN PLASMA Routine 09/19/2023 1:24 PM INFORMATION RECEPTIONIST TRANSFUSE PLATELETS Routine 09/19/2023 1 :09 PM INFORMATION RECEPTIONIST LACTATE, B STAT 09/19/2023 12:45 PM INFORMATION RECEPTIONIST GLUCOSE, WHOLE BLOOD STAT 09/19/2023 12:45 PM INFORMATION RECEPTIONIST POTASSIUM, B STAT 09/19/2023 12:45 PM INFORMATION RECEPTIONIST SODIUM, B STAT 09/19/2023 12:45 PM INFORMATION RECEPTIONIST CALCIUM, IONIZED, S/B STAT 09/19/2023 12:45 PM INFORMATION RECEPTIONIST ABG W/COOX STAT 09/19/2023 12:45 PM INFORMATION RECEPTIONIST PLATELETS, B STAT 09/19/2023 12:44 PM INFORMATION RECEPTIONIST PROTHROMBIN TIME (PT), P STAT 09/19/2023 12:44 PM INFORMATION RECEPTIONIST FIBRINOGEN, P STAT 09/19/2023 12:44 PM INFORMATION RECEPTIONIST ACTIVATED PARTIAL THROMBOPLASTIN TIME (APTT), P STAT 09/19/2023 12:44 PM INFORMATION RECEPTIONIST ACT, POCT, B Routine 09/19/2023 12:42 PM INFORMATION RECEPTIONIST HEMOGLOBIN (HGB), POCT, B Routine 09/19/2023 12:17 PM INFORMATION RECEPTIONIST ACT, POCT, B Routine 09/19/2023 12:01 PM INFORMATION RECEPTIONIST GLUCOSE POCT, B Routine 09/19/2023 12:00 PM INFORMATION RECEPTIONIST SURGICAL PATHOLOGY, [facility] LAB Routine 09/19/2023 11:34 AM INFORMATION RECEPTIONIST Stenosis Aortic Valve Acquired AUTOLOGOUS RED BLOOD CELLS-CELL SALVAGE Routine 09/19/2023 11:33 AM INFORMATION RECEPTIONIST ACT, POCT, B Routine 09/19/2023 11:28 AM INFORMATION RECEPTIONIST ACT, POCT, B Routine 09/19/2023 10:55 AM INFORMATION RECEPTIONIST ACT, POCT, B Routine 09/19/2023 10:24 AM INFORMATION RECEPTIONIST GLUCOSE POCT, B Routine 09/19/2023 10:23 AM INFORMATION RECEPTIONIST TRANSFUSE RED BLOOD CELLS Routine 09/19/2023 10:13 AM INFORMATION RECEPTIONIST (EDMUNDO) - INTRAOPERATIVE WITH COLOR AND LIMITED DOPPLER (PROBE NOT PLACED) Routine 09/19/2023 9:56 AM INFORMATION RECEPTIONIST ACT, POCT, B Routine 09/19/2023 9:51 AM INFORMATION RECEPTIONIST GLUCOSE, WHOLE BLOOD STAT 09/19/2023 9:51 AM INFORMATION RECEPTIONIST POTASSIUM, B STAT 09/19/2023 9:51 AM INFORMATION RECEPTIONIST SODIUM, B STAT 09/19/2023 9:51 AM INFORMATION RECEPTIONIST CALCIUM, IONIZED, S/B STAT 09/19/2023 9:51 AM INFORMATION RECEPTIONIST ABG W/COOX STAT 09/19/2023 9:51 AM INFORMATION RECEPTIONIST ACT, POCT, B Routine 09/19/2023 9:26 AM INFORMATION RECEPTIONIST HEMOGLOBIN (HGB), POCT, B Routine 09/19/2023 9:24 AM INFORMATION RECEPTIONIST LACTATE, B STAT 09/19/2023 8:25 AM INFORMATION RECEPTIONIST GLUCOSE, WHOLE BLOOD STAT 09/19/2023 8:25 AM INFORMATION RECEPTIONIST POTASSIUM, B STAT 09/19/2023 8:25 AM INFORMATION RECEPTIONIST SODIUM, B STAT 09/19/2023 8:25 AM INFORMATION RECEPTIONIST CALCIUM, IONIZED, S/B STAT 09/19/2023 8:25 AM INFORMATION RECEPTIONIST ABG W/COOX STAT 09/19/2023 8:25 AM INFORMATION RECEPTIONIST ACT, POCT, B Routine 09/19/2023 8:24 AM INFORMATION RECEPTIONIST ANE CENTRAL LINE GENERIC PERFORMABLE Routine 09/19/2023 8:06 AM INFORMATION RECEPTIONIST LDA ANE INTRODUCER ONLY Routine 09/19/2023 8:06 AM INFORMATION RECEPTIONIST LDA ANE PA CATH Routine 09/19/2023 8:06 AM INFORMATION RECEPTIONIST ANE INVASIVE CATH WITH ULTRASOUND Routine 09/19/2023 8:06 AM INFORMATION RECEPTIONIST [place] INS/PLC FLOW DIR CATH Routine 09/19/2023 8:06 AM INFORMATION RECEPTIONIST [place] US GUIDE VASC ACCESS Routine 09/19/2023 8:06 AM INFORMATION RECEPTIONIST [place] ECHO EDMUNDO 2D PLC ONLY Routine 09/19/2023 7:55 AM INFORMATION RECEPTIONIST AIRWAY MANAGEMENT Routine 09/19/2023 7:5 2 AM INFORMATION RECEPTIONIST LDA ANE ARTERIAL LINE INSERTION Routine 09/19/2023 7:43 AM INFORMATION RECEPTIONIST [place] ARTL CATH/CNULA MONITOR PERC Routine 09/19/2023 7:43 AM INFORMATION RECEPTIONIST ECHOCARDIOGRAM TRANSESOPHAGEAL 09/19/2023 7:03 AM INFORMATION RECEPTIONIST Stenosis Aortic Valve Acquired ISOLATION PULMONARY VEIN 09/19/2023 7:03 AM INFORMATION RECEPTIONIST Stenosis Aortic Valve Acquired LIGATION LEFT ATRIAL APPENDAGE 09/19/2023 7:03 AM INFORMATION RECEPTIONIST 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 09/19/2023 7:03 AM INFORMATION RECEPTIONIST Stenosis Aortic Valve Acquired REPLACEMENT AORTIC VALVE 09/19/2023 7:03 AM INFORMATION RECEPTIONIST Stenosis Aortic Valve Acquired ANESTHESIOLOGY IMAGE EXAM Routine 09/19/2023 7:00 AM INFORMATION RECEPTIONIST PREPARE RED BLOOD CELLS STAT 09/18/2023 9:04 AM INFORMATION RECEPTIONIST PREPARE RED BLOOD CELLS STAT 09/18/2023 9:04 AM INFORMATION RECEPTIONIST PREPARE RED BLOOD CELLS STAT 09/18/2023 9:04 AM INFORMATION RECEPTIONIST TYPE AND SCREEN Routine 09/18/2023 9:04 AM INFORMATION RECEPTIONIST Stenosis Aortic Valve Acquired Acquired Aortic Valve Disorder BASIC METABOLIC PANEL, S/P Routine 09/18/2023 9:04 AM INFORMATION RECEPTIONIST Stenosis Aortic Valve Acquired Acquired Aortic Valve Disorder CBC WITHOUT DIFFERENTIAL, B Routine 09/18/2023 9:04 AM INFORMATION RECEPTIONIST Stenosis Aortic Valve Acquired Acquired Aortic Valve Disorder from Last 3 Months Results * XR CHEST 1V PORTABLE-Outside Chest Xray (11/11/2023 8:30 AM INFORMATION RECEPTIONIST) Only the most recent of3 resultswithin the time period is included. Narrative [facility]IM[facility] - 11/11/2023 1:45 PM INFORMATION RECEPTIONIST This order has been created and auto-finalized to support the import of outside images. If available, original interpretation can be found on the Media Tab in Chart Review, in Document Viewer, or as an image in QREADS. If a re-interpretation or overread is required please follow defined workflow. ?? Provider Not In System IMG DIAGNOSTIC IM AGING PROCEDURES [facility]IM[facility] NA * INR Reflex, POCT, Blood (11/02/2023 12:42 PM INFORMATION RECEPTIONIST) Only the most recent of9 resultswithin the time period is included. INR Reflex, POCT, B 3.6 11/02/2023 12:41 PM INFORMATION RECEPTIONIST [id number] Comment: ----ADDITIONAL INFORMATION---- Standard intensity warfarin therapeutic range: 2.0 to 3.0 ?? High intensity warfarin therapeutic range: 2.5 to 3.5 Blood (Blood, Capillary) 11/02/2023 12:42 PM INFORMATION RECEPTIONIST 11/02/2023 12:41 PM INFORMATION RECEPTIONIST Kylah Crum M.D. LAB POCT ORDERABLES - DEVICE Performing Organization Address City/[facility]/ZIP Co de Phone Number [facility] [address] [place] [address], [place] [id number] [facility] [place] [address] [place] [address] * (ABNORMAL) Basic Metabolic Panel (10/01/2023 12:02 PM INFORMATION RECEPTIONIST) Only the most recent of15 resultswithin the time period is included. Potassium, P 4.5 3.6 - 5.2 mmol/L 10/01/2023 4:33 PM INFORMATION RECEPTIONIST OWAT Sodium, P 137 135 - 145 mmol/L 10/01/2023 4:33 PM INFORMATION RECEPTIONIST OWAT Chloride, P 99 98 - 107 mmol/L 10/01/2023 4:33 PM INFORMATION RECEPTIONIST OWAT Bicarbonate, P 24 22 - 29 mmol/L 10/01/2023 4:33 PM INFORMATION RECEPTIONIST OWAT Anion Gap, P 14 7 - 15 10/01/2023 4:33 PM INFORMATION RECEPTIONIST OWAT BUN (Blood Urea Nitrogen), P 34(H) 8 - 24 mg/dL 10/01/2023 4:33 PM INFORMATION RECEPTIONIST OWAT Creatinine 2.36(H) 0.74 - 1.35 mg/dL 10/01/2023 4:33 PM INFORMATION RECEPTIONIST OWAT Estimated GFR (eGFR) 29(L) >=60 mL/min/BSA 10/01/2023 4:33 PM INFORMATION RECEPTIONIST OWAT Comment: Estimated GFR calculated using the 2020 CKD_EPI creatinine equation. Calcium, Total, P 8.7(L) 8.8 - 10.2 mg/dL 10/01/2023 4:33 PM INFORMATION RECEPTIONIST OWAT Glucose, P 222(H) 70 - 140 mg/dL 10/01/2023 4:33 PM INFORMATION RECEPTIONIST OWAT Blood (Blood, Venous) 10/01/2023 12:02 PM INFORMATION RECEPTIONIST 10/01/2023 3:43 PM INFORMATION RECEPTIONIST Kylah Crum M.D. LAB BLOOD ADD-ON [facility] [address] [place] [address], [facility] [place] [address] [place] [address] * (ABNORMAL) Prothrombin Time (PT) (09/28/2023 1:41 PM INFORMATION RECEPTIONIST) Only the most recent of15 resultswithin the time period is included. Prothrombin Time, P 18.4(H) 9.4 - 12.5 sec 09/28/2023 4:01 PM INFORMATION RECEPTIONIST OWAT INR 1.6 0.9 - 1.1 09/28/2023 4:01 PM INFORMATION RECEPTIONIST OWAT Comment: ----ADDITIONAL INFORMATION---- Standard intensity warfarin therapeutic range: 2.0 to 3.0 ?? High intensity warfarin therapeutic range: 2.5 to 3.5 Blood (Blood, Venous) 09/28/2023 1:41 PM INFORMATION RECEPTIONIST 09/28/2023 3:32 PM INFORMATION RECEPTIONIST Sammi Kothari APRN C.N.P., D.N.P. LAB BL OOD ADD-ON [facility] [address] [place] [address], [facility] [place] [address], [place] [address] * (ABNORMAL) Glucose, POCT (09/26/2023 11:37 AM INFORMATION RECEPTIONIST) Only the most recent of36 resultswithin the time period is included. Glucose, POCT, B 190(H) 70 - 140 mg/dL 09/26/2023 11:54 AM INFORMATION RECEPTIONIST PCLX Site Capillary 09/26/2023 11:54 AM INFORMATION RECEPTIONIST PCLX Last Intake 3-4 hours 09/26/2023 11:54 AM INFORMATION RECEPTIONIST PCLX Blood 09/26/2023 11:3 7 AM INFORMATION RECEPTIONIST 09/26/2023 11:54 AM INFORMATION RECEPTIONIST Unknown Provider LAB POCT ORDERABLES- MANUAL POC [facility] [address] [place] [address], [facility] PCLX [facility] POC [address] [place] [address] * (ABNORMAL) CBC without Differential (09/26/2023 6:58 AM INFORMATION RECEPTIONIST) Only the most recent of10 resultswithin the time period is included. Hemoglobin 8.3(L) 13.2 - 16.6 g/dL 09/26/2023 8:04 AM INFORMATION RECEPTIONIST DTL Hematocrit 25.5(L) 38.3 - 48.6 % 09/26/2023 8:04 AM INFORMATION RECEPTIONIST DTL Erythrocytes 2.70(L) 4.35 - 5.65 x10(12)/L 09/26/2023 8:04 AM INFORMATION RECEPTIONIST DTL MCV 94.4 78.2 - 97.9 fL 09/26/2023 8:04 AM INFORMATION RECEPTIONIST DTL RBC Distrib Width 13.5 11.8 - 14.5 % 09/26/2023 8:04 AM INFORMATION RECEPTIONIST DTL Platelet Count 214 135 - 317 x10(9)/L 09/26/2023 8:04 AM INFORMATION RECEPTIONIST DTL Leukocytes 6.7 3.4 - 9.6 x10(9)/L 09/26/2023 8:04 AM INFORMATION RECEPTIONIST DTL Blood (Blood, Venous) 09/26/2023 6:58 AM INFORMATION RECEPTIONIST 09/26/2023 7:43 AM INFORMATION RECEPTIONIST Jenny Jay, B.Ch., B.A.O. LAB BLOOD ADD-ON [facility] [address] [place] [address], [facility] DTL [facility] [address] [place] [address] * DX Chest AP or PA and Lateral 2 Views (09/25/2023 7:26 AM INFORMATION RECEPTIONIST) Only the most recent of2 resultswithin the time period is included. Anatomical Region Laterality Modality Chest, Thoracic RST LOS, Tho racic ARZ LOS, Thoracic FLA LOS N/A Digital Radiography 09/25/2023 8:59 AM INFORMATION RECEPTIONIST Impressions 09/25/2023 9:01 AM INFORMATION RECEPTIONIST Sternotomy with aortic valve replacement. Mild enlargement of cardiac silhouette. Loop recorder. Trace pleural effusions. Azygos fissure. Aortic calcification. Degenerative arthritis thoracic spine. No pneumothorax. No significant change since 09/23/2023. Narrative 09/25/2023 9:01 AM INFORMATION RECEPTIONIST EXAM: ??DX CHEST AP OR PA AND [...] * ECG 12 Lead (09/25/2023 4:55 AM INFORMATION RECEPTIONIST) Only the most recent of2 resultswithin the time period is included. Ventricular Rate ECG/Min 69 BPM MUSE [place] Interval 140 ms MUSE QRSD Interval 86 ms MUSE QT Interval 420 ms MUSE QTC Interval 450 ms MUSE P Thayer 30 degrees MUSE R Thayer 29 degrees MUSE T Wave Thayer 74 degrees MUSE 09/25/2023 4:55 AM INFORMATION RECEPTIONIST 09/25/2023 5:12 AM INFORMATION RECEPTIONIST Impressions MUSE - 09/25/2023 5:13 AM INFORMATION RECEPTIONIST Normal sinus rhythm Low voltage QRS in [...] was found Reviewed by MARIELA Dodson Laila Ryan Basurto P.A.-C. ECG ORDERABLE S MUSE NA * (TTE) 2D ECHO DOPPLER COLOR (09/24/2023 3:26 PM INFORMATION RECEPTIONIST) Ejection Fraction 64 MC CV EIMS Mid-Ascending [...] Region Laterality Modality Echocardiography 09/24/2023 1:57 PM INFORMATION RECEPTIONIST Impressions 09/24/2023 5:48 PM INFORMATION RECEPTIONIST Echocardiogram performed per dismissal echo protocol. Status [...] the Order-Level Documents. Narrative 09/24/2023 5:48 PM INFORMATION RECEPTIONIST For the complete report, see the Order-Level [...] velocities (8.3 g/dL). Procedure Note Venancio Linn M.B.BJarrettS., Ph.D. - 09/24/2023 For the complete report, see the Order-Level Documents. Hemodynamics Heart Rate: 70 BPM Blood Pressure: 118 / 60 mmHg ECG: Sinus rhythm Final Impressions 1. 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 2. Aortic prosthetic disc not well seen. Mean aortic prosthetic [id number] mmHg; EOA 2.1 cm2. Trivial (washing jets) [...] DURES * (ABNORMAL) Hemoglobin (09/23/2023 3:44 PM INFORMATION RECEPTIONIST) Hemoglobin 8.1(L) 13.2 - 16.6 g/dL 09/23/2023 3:52 PM INFORMATION RECEPTIONIST STMA Blood (Blood, Venous) 09/23/2023 3:44 PM INFORMATION RECEPTIONIST 09/23/2023 3:49 PM INFORMATION RECEPTIONIST Laila Basurto P.A.-C. LAB BLOOD ADD -ON [facility] [address] [place] [address], [facility] [address] [place] [address] * (ABNORMAL) Hepatic Function Panel (09/23/2023 7:31 AM INFORMATION RECEPTIONIST) Bilirubin, Total, S 0.5 0.0 - 1.2 mg/dL 09/23/2023 9:47 AM INFORMATION RECEPTIONIST DTL Bilirubin, Direct, S <0.2 0.0 - 0.3 mg/dL 09/23/2023 9:47 AM INFORMATION RECEPTIONIST DTL Aspartate Aminotransferase (AST), S 21 8 - 48 U/L 09/23/2023 9:47 AM INFORMATION RECEPTIONIST DTL Alanine Aminotransferase (ALT), S 9 7 - 55 U/L 09/23/2023 9:47 AM INFORMATION RECEPTIONIST DTL Alkaline Phosphatase, S 63 40 - 129 U/L 09/23/2023 9:47 AM INFORMATION RECEPTIONIST DTL Albumin, S 3.0(L) 3.5 - 5.0 g/dL 09/23/2023 9:47 AM INFORMATION RECEPTIONIST DTL Protein, Total, S 4.9(L) 6.3 - 7.9 g/dL 09/23/2023 9:47 AM INFORMATION RECEPTIONIST DTL Blood (Blood, Venous) 09/23/2023 7:31 AM INFORMATION RECEPTIONIST 09/23/2023 9:19 AM INFORMATION RECEPTIONIST Laila Basurto P.A.-C. LAB BLOOD ADD -ON [facility] [address] [place] [address], [facility] DTL [facility] [address] [place] [address] * Transfuse Red Blood Cells : (09/22/2023 4:21 PM INFORMATION RECEPTIONIST) Only the most recent of5 resultswithin the time period is included. Laila Basurto P.A.-C. BLOOD TRANSFU RAHUL ORDERABLES * Type and Screen (with Reflex Antibody ID) (09/22/2023 7:01 AM INFORMATION RECEPTIONIST) Only the most recent of2 resultswithin the time period is included. ABORh A Neg Not applicable 09/22/2023 2:10 PM INFORMATION RECEPTIONIST STRM Antibody Screen Negative Negative 09/22/2023 2:19 PM INFORMATION RECEPTIONIST STRM Type & Screen Expiration 09/25/2023 23:59 09/22/2023 2:10 PM INFORMATION RECEPTIONIST STRM Testing Location [place] DEFAULT 09/22/2023 1:41 PM INFORMATION RECEPTIONIST STRM Blood (Blood, Venous) 09/22/2023 7:01 AM INFORMATION RECEPTIONIST 09/22/2023 1:41 PM INFORMATION RECEPTIONIST Laila Basurto P.A.-C. LAB BLOOD BAN K TEST ORDERABLES [facility] [address] [place] [address], [facility] STRM [facility] [address] [place] [address] * Patient Status (09/21/2023 6:35 AM INFORMATION RECEPTIONIST) Only the most recent of4 resultswithin the time period is included. FIO2 0.21 0.21=AIR 09/21/2023 6:39 AM INFORMATION RECEPTIONIST STMA Spont. breaths/min 18 09/21/2023 6:39 AM INFORMATION RECEPTIONIST STMA Blood 09/21/2023 6:35 AM INFORMATION RECEPTIONIST 09/21/2023 6:39 AM INFORMATION RECEPTIONIST Bryce Wills M.D. LAB BLOOD NON ADD-ON [facility] [address] [place] [address], [facility] STMA [facility] [address] [place] [address] * (ABNORMAL) Blood Gas with Coox, Arterial (09/21/2023 6:35 AM INFORMATION RECEPTIONIST) Only the most recent of10 resultswithin the time period is included. pO2 67(L) 83 - 108 mm Hg 09/21/2023 6:41 AM INFORMATION RECEPTIONIST STMA pCO2 46 35 - 48 mm Hg 09/21/2023 6:41 AM INFORMATION RECEPTIONIST STMA pH 7.41 7.35 - 7.45 pH 09/21/2023 6:41 AM INFORMATION RECEPTIONIST STMA Base Excess 4(H) -2 - 3 mmol/L 09/21/2023 6:41 AM INFORMATION RECEPTIONIST STMA HCO3 29(H) 22 - 26 mmol/L 09/21/2023 6:41 AM INFORMATION RECEPTIONIST STMA Hemoglobin, Venous 8.2(L) 13.2 - 16.6 g/dL 09/21/2023 6:41 AM INFORMATION RECEPTIONIST STMA O2Hb 92.5(L) 94.0 - 98.0 % 09/21/2023 6:41 AM INFORMATION RECEPTIONIST STMA COHb 2.0 <3.0 % 09/21/2023 6:42 AM INFORMATION RECEPTIONIST STMA MetHb <1.0 <1.5 % 09/21/2023 6:41 AM INFORMATION RECEPTIONIST STMA CtO2 10.8(L) 18.0 - 21.0 vol % 09/21/2023 6:42 AM INFORMATION RECEPTIONIST STMA Arterial Sample Site Art Line 09/21/2023 6:41 AM INFORMATION RECEPTIONIST STMA Comment:Mina's test not don e. Blood (Blood, Arterial) 09/21/2023 6:35 AM INFORMATION RECEPTIONIST 09/21/2023 6:39 AM INFORMATION RECEPTIONIST Bryce Wills M.D. LAB BLOOD NON ADD-ON [facility] [address] [place] [address], [facility] STMA [facility] [address] [place] [address] * (ABNORMAL) Phosphorus Inorganic (09/21/2023 5:11 AM INFORMATION RECEPTIONIST) Phosphorus (Inorganic), S 5.4(H) 2.5 - 4.5 mg/dL 09/21/2023 6:03 AM INFORMATION RECEPTIONIST DTL Blood (Blood, Venous) 09/21/2023 5:11 AM INFORMATION RECEPTIONIST 09/21/2023 5:50 AM INFORMATION RECEPTIONIST Enmanuel Edward P.A.-C. LAB BLOOD ADD-ON Performing Organization Address City/[facility]/[place] [address] * (ABNORMAL) Magnesium (09/21/2023 5:11 AM INFORMATION RECEPTIONIST) Only the most recent of2 resultswithin the time period is included. Magnesium, S 2.4(H) 1.7 - 2.3 mg/dL 09/21/2023 6:03 AM INFORMATION RECEPTIONIST DT Blood (Blood, Venous) 09/21/2023 5:11 AM INFORMATION RECEPTIONIST 09/21/2023 5:50 AM INFORMATION RECEPTIONIST Enmanuel Edward P.A.-C. LAB BLOOD ADD-ON [facility] [address] [place] [address] * Potassium (09/20/2023 8:33 PM INFORMATION RECEPTIONIST) Potassium, P 5.0 3.6 - 5.2 mmol/L 09/20/2023 8:56 PM INFORMATION RECEPTIONIST STMA Blood (Blood, Venous) 09/20/2023 8:33 PM INFORMATION RECEPTIONIST 09/20/2023 8:38 PM INFORMATION RECEPTIONIST Yenifer Mercado P.A.-C. LAB BLOOD ADD -ON Performing Organization Address City/[facility] Co de Phone Number [facility] [address] [place] [address] * Lactate, Whole Blood (09/20/2023 4:11 AM INFORMATION RECEPTIONIST) Only the most recent of8 resultswithin the time period is included. Lactate, B 1.5 0.5 - 2.2 mmol/L 09/20/2023 4:18 AM INFORMATION RECEPTIONIST STMA Blood (Blood, Arterial) 09/20/2023 4:11 AM INFORMATION RECEPTIONIST 09/20/2023 4:15 AM INFORMATION RECEPTIONIST Lobito Melgar APRN, C.N.P., M.S.N. L AB BLOOD NON ADD-ON Performing Organization Address [facility] Co de Phone Number [facility] [address] [place], [place] [address] [place] [address] [address] [place] [address] * (ABNORMAL) Blood Gas without Coox, Arterial (09/20/2023 4:11 AM INFORMATION RECEPTIONIST) Pathologist [facility] pO2 79(L) 83 - 108 mm Hg 09/20/2023 4:18 AM INFORMATION RECEPTIONIST STMA pCO2 43 35 - 48 mm Hg 09/20/2023 4:18 AM INFORMATION RECEPTIONIST STMA pH 7.37 7.35 - 7.45 pH 09/20/2023 4:18 AM INFORMATION RECEPTIONIST STMA Base Excess 0 -2 - 3 mmol/L 09/20/2023 4:18 AM INFORMATION RECEPTIONIST STMA HCO3 25 22 - 26 mmol/L 09/20/2023 4:18 AM INFORMATION RECEPTIONIST STMA Arterial Sample Site Art Line 09/20/2023 4:18 AM INFORMATION RECEPTIONIST STMA Comment:Mina's test not don e. Blood (Blood, Arterial) 09/20/2023 4:11 AM INFORMATION RECEPTIONIST 09/20/2023 4:15 AM INFORMATION RECEPTIONIST Jenny Jay, B.Ch., B.A.O. LAB BLOOD NON ADD-ON Performing Organization Address City/[facility]/ZIP Co de Phone Number [facility] [address] [place] [address] * APTT (Activated Partial Thromboplastin Time) (09/20/2023 4:09 AM INFORMATION RECEPTIONIST) Only the most recent of7 resultswithin the time period is included. Activated Partial Thrombopl Time, P 26 25 - 37 sec 09/20/2023 5:19 AM INFORMATION RECEPTIONIST DTL Blood (Blood, Venous) 09/20/2023 4:09 AM INFORMATION RECEPTIONIST 09/20/2023 4:43 AM INFORMATION RECEPTIONIST Jenny Jya, Nicky.Ch., B.A.O. LAB BLOOD ADD-ON Performing Organization Address [facility] Co de Phone Number [facility] [address] [place] [address] * DX Chest Portable with AM Rounds 1 View (09/20/2023 3:33 AM INFORMATION RECEPTIONIST) Anatomical Region Laterality Modality Chest, Thoracic RST LOS, Tho racic ARZ LOS, Thoracic FLA LOS N/A Digital Radiography 09/20/2023 5:18 AM INFORMATION RECEPTIONIST Impressions 09/20/2023 5:20 AM INFORMATION RECEPTIONIST Compared to 09/19/2023. Extubation. Removal of right IJ SGC, sheath remains. Slightly decreased lung volumes. No other significant change. Pulmonary vascular congestion. Bibasilar atelectasis. No definite pneumothorax. Trace pneumomediastinum. Enlarged cardiac silhouette. Retrocardiac atelectasis/consolidation. Azygous fissure. Sternotomy. Mediastinal clips and drains. Loop recorder. Narrative 09/20/2023 5:20 AM INFORMATION RECEPTIONIST EXAM: ??DX CHEST PORTABLE WITH AM ROUNDS [...] clips and drains. Loop recorder. Jenny Jay, Kaz., B.A.O. IMG DIAGNOSTIC IMAGING PROCEDURES * (ABNORMAL) Tissue Inhibitor of Metalloproteinase 2 (TIMP-2) and Insulin-like Growth Factor Binding Protein 7 (IGFBP-7) Risk Score, Random, Urine (09/20/2023 3:24 AM INFORMATION RECEPTIONIST) TIMP2/IGFBP7 MANJEET Risk Score, U 0.45(H) <0.30 (ng/mL)(2) /1000 09/20/2023 4:[address] [facility] Comment: ----ADDITIONAL INFORMATION---- <0.30= <0.30 is considered low risk for acute kidney injury. 0.30-2.00= 0.30-2.00 indicates increased risk for acute kidney injury. >2.00= >2.00 indicates high risk for acute kidney injury. Urine (Urine, Midstream) 09/20/2023 3:24 AM INFORMATION RECEPTIONIST 09/20/2023 3:24 AM INFORMATION RECEPTIONIST Jenny Jay, Nicky.Ch., B.A.O. LAB URINE ORDERABLES [facility] [address] [place] [address], [facility] [address] [place] [address] * (ABNORMAL) Lactate (09/19/2023 7:43 PM INFORMATION RECEPTIONIST) Lactate, P 7.0(H) 0.5 - 2.2 mmol/L 09/19/2023 8:04 PM INFORMATION RECEPTIONIST STMA Blood (Blood, Venous) 09/19/2023 7:43 PM INFORMATION RECEPTIONIST 09/19/2023 7:49 PM INFORMATION RECEPTIONIST Susu Fajardo LAB BLOOD NON ADD-ON [facility] [address] [place] [address], [facility] [address] [place] [address] * DX Chest Portable 1 View (09/19/2023 5:45 PM INFORMATION RECEPTIONIST) Anatomical Region Laterality Modality Chest, Thoracic RST LOS, Tho racic ARZ LOS, Thoracic FLA LOS N/A Digital Radiography 09/19/2023 7:33 PM INFORMATION RECEPTIONIST Impressions 09/19/2023 8:26 PM INFORMATION RECEPTIONIST Interval retraction of the endotracheal tube, with tip now in the mid thoracic trachea. Otherwise no significant changes since 2:23 PM. Right IJ Lynn-Sepideh catheter with tip in the main pulmonary artery. Sternotomy wires and mediastinal surgical clips. Aortic valve replacement. Mediastinal drains. Mild bilateral interstitial thickening and perihilar opacities. No definite pleural effusion. Aortic calcifications. Narrative 09/19/2023 8:26 PM INFORMATION RECEPTIONIST EXAM: ??DX CHEST PORTABLE 1 VIEW Procedure Note Bhaskar Rob M.B.B.SJarrett, M.D. - 09/19/2023 EXAM: DX CHEST PORTABLE 1 VIEW IMPRESSION: Interval retraction of the endotracheal tube, with tip now in the midthoracic trachea. Otherwise no significant changes since 2:23 PM. Right IJSwan-Sepideh catheter with tip in the main pulmonary artery. Sternotomy wiresand mediastinal surgical clips. Aortic valve replacement. Mediastinal drains. Mildbilateral interstitial thickening and perihilar opacities. No definitepleural effusion. Aortic calcifications. Jenny Jay, B.Ch., B.A.O. IMG DIAGNOSTIC IMAGING PROCEDURES * Transfuse Platelets : (09/19/2023 5:19 PM INFORMATION RECEPTIONIST) Only the most recent of3 resultswithin the time period is included. Radha Iqbal M.D. BLOOD TRANSFUSION OR DERABLES * (ABNORMAL) Cystatin C with Estimated GFR (09/19/2023 5:19 PM INFORMATION RECEPTIONIST) eGFR by Cystatin C 59(L) >60 mL/min/BSA 09/19/2023 8:00 PM INFORMATION RECEPTIONIST DTL Comment: Estimated GFR calculated using the [...] 0.67 - 1.21 mg/L 09/19/2023 8:00 PM INFORMATION RECEPTIONIST DTL Blood (Blood, Arterial Line) 09/19/2023 5:19 PM INFORMATION RECEPTIONIST 09/19/2023 5:53 PM INFORMATION RECEPTIONIST Zoraida Salmeron M.D., Ph.D. LAB BLOOD AD D-ON [facility] [address] [place] [address], [facility] [address] [place] [address] * Fibrinogen (09/19/2023 5:19 PM INFORMATION RECEPTIONIST) Only the most recent of6 resultswithin the time period is included. Fibrinogen, P 269 200 - 393 mg/dL 09/19/2023 5:30 PM INFORMATION RECEPTIONIST STMA Blood (Blood, Venous) 09/19/2023 5:19 PM INFORMATION RECEPTIONIST 09/19/2023 5:22 PM INFORMATION RECEPTIONIST Jenny Jay, BKolby., B.A.O. LAB BLOOD ADD-ON Performing Organization Address City/[facility]/ZIP Co de Phone Number [facility] [address] [place] [address], [facility] [address] [place] [address] * Sodium, B (09/19/2023 4:20 PM INFORMATION RECEPTIONIST) Only the most recent of7 resultswithin the time period is included. Pathologist [facility] Sodium, B 139 135 - 145 mmol/L 09/19/2023 4:23 PM INFORMATION RECEPTIONIST STMA Blood (Blood, Arterial Line) 09/19/2023 4:20 PM INFORMATION RECEPTIONIST 09/19/2023 4:20 PM INFORMATION RECEPTIONIST Rowena Antonio M.D. LAB BLOOD NON A DD-ON Performing Organization Address [facility] Co de Phone Number [facility] [address] [place] [address], [facility] [address] [place] [address] * Potassium, Blood (09/19/2023 4:20 PM INFORMATION RECEPTIONIST) Only the most recent of7 resultswithin the time period is included. [facility] Potassium, B 4.7 3.6 - 5.2 mmol/L 09/19/2023 4:23 PM INFORMATION RECEPTIONIST [facility] Blood (Blood, Arterial Line) 09/19/2023 4:20 PM INFORMATION RECEPTIONIST 09/19/2023 4:20 PM INFORMATION RECEPTIONIST Rowena Antonio M.D. LAB BLOOD NON A DD-ON Performing Organization Address City/[facility] Co de Phone Number [facility] [address] [place] [address], [facility] [address] [place] [address] * (ABNORMAL) Glucose, Whole Blood (09/19/2023 4:20 PM INFORMATION RECEPTIONIST) Only the most recent of7 resultswithin the time period is included. Glucose 152(H) 70 - 140 mg/dL 09/19/2023 4:23 PM INFORMATION RECEPTIONIST [facility] Blood (Blood, Arterial Line) 09/19/2023 4:20 PM INFORMATION RECEPTIONIST 09/19/2023 4:20 PM INFORMATION RECEPTIONIST Rowena Antonio M.D. LAB BLOOD ADD-O N Performing Organization Address [facility] de Phone Number [facility] [address] [place] [address] * (ABNORMAL) Platelet Count (09/19/2023 4:20 PM INFORMATION RECEPTIONIST) Only the most recent of5 resultswithin the time period is included. Platelet Count 94(L) 135 - 317 x10(9)/L 09/19/2023 4:27 PM INFORMATION RECEPTIONIST [facility] Blood (Blood, Arterial Line) 09/19/2023 4:20 PM INFORMATION RECEPTIONIST 09/19/2023 4:20 PM INFORMATION RECEPTIONIST Rowena Antonio M.D. LAB BLOOD ADD-O N Performing Organization Address [facility] de Phone Number [facility] [address] [place] [address], [facility] [address] [place] [address] * Calcium, Ionized (09/19/2023 4:20 PM INFORMATION RECEPTIONIST) Only the most recent of7 resultswithin the time period is included. Calcium, Ionized, B 5.02 4.65 - 5.30 mg/dL 09/19/2023 4:23 PM INFORMATION RECEPTIONIST [facility] Blood (Blood, Arterial Line) 09/19/2023 4:20 PM INFORMATION RECEPTIONIST 09/19/2023 4:20 PM INFORMATION RECEPTIONIST Rowena Antonio M.D. LAB BLOOD NON A DD-ON Performing Organization Address [facility]/State/ZIP Co de Phone Number [facility] [address] [place] [address], [facility] [address] [place] [address] * Transfuse Pooled Cryoprecipitate: (09/19/2023 3:54 PM INFORMATION RECEPTIONIST) Only the most recent of2 resultswithin the time period is included. Rowena Antonio M.D. BLOOD TRANSFUSI ON ORDERABLES * Thromboelastograph, Kaolin + Heparinase (09/19/2023 3:37 PM INFORMATION RECEPTIONIST) R-Heparinase, TEG 4.7 1.9 - 6.5 min 09/19/2023 5:46 PM INFORMATION RECEPTIONIST [facility] K-Heparinase, TEG 1.3 1.0 - 1.9 min 09/19/2023 5:46 PM INFORMATION RECEPTIONIST ST[facility] Angle-Heparina se, TEG 72.0 63.5 - 75.1 degrees 09/19/2023 5:46 PM INFORMATION RECEPTIONIST ST[facility] MA-Heparinase, TEG 65.9 57.7 - 69.3 mm 09/19/2023 5:46 PM INFORMATION RECEPTIONIST STMA Vn15-Dyqcijmuf e, TEG 0.0 0.0 - 4.7 % 09/19/2023 5:46 PM INFORMATION RECEPTIONIST STMA Wq17-Uxedoncjm e, TEG 1.1 0.0 - 15.0 % 09/19/2023 5:46 PM INFORMATION RECEPTIONIST STMA Blood (Blood, Arterial Line) 09/19/2023 3:37 PM INFORMATION RECEPTIONIST 09/19/2023 3:37 PM INFORMATION RECEPTIONIST Rowena Antonio M.D. LAB BLOOD NON A DD-ON [facility] [address] [place] [address], [facility] [address] [place] [address] * Thromboelastograph, Kaolin, Blood (09/19/2023 3:37 PM INFORMATION RECEPTIONIST) R, Kaolin, TEG 4.8 4.0 - 9.0 min 09/19/2023 5:46 PM INFORMATION RECEPTIONIST ST[facility] K, Kaolin, TEG 1.3 1.0 - 1.8 min 09/19/2023 5:46 PM INFORMATION RECEPTIONIST STMA Angle, Kaolin, TEG 70.0 64.0 - 78.1 degrees 09/19/2023 5:46 PM INFORMATION RECEPTIONIST STMA MA, Kaolin, TEG 65.4 57.1 - 72.6 mm 09/19/2023 5:46 PM INFORMATION RECEPTIONIST STMA Ly30, Kaolin, TEG 0.0 0.0 - 4.8 % 09/19/2023 5:46 PM INFORMATION RECEPTIONIST STMA Blood (Blood, Arterial Line) 09/19/2023 3:37 PM INFORMATION RECEPTIONIST 09/19/2023 3:37 PM INFORMATION RECEPTIONIST Rowena Antonio M.D. LAB BLOOD NON A DD-ON [facility] [address] [place] [address], [facility] [address] [place] [address] * DX Chest Retained Surgical Item 1 View (09/19/2023 2:30 PM INFORMATION RECEPTIONIST) Anatomical Region Laterality Modality Chest, Thoracic RST LOS, Tho racic ARZ LOS, Thoracic FLA LOS N/A Digital Radiography 09/19/2023 2:32 PM INFORMATION RECEPTIONIST Impressions 09/19/2023 2:39 PM INFORMATION RECEPTIONIST The aforementioned object in question is not identified. New sternotomy, mediastinal clips, AVR, mediastinal drains, right IJ Lynn-Sepideh catheter tip at the MPA are identified. Likely small amount of mediastinal air. ET tube tip is low lying, approximately 1 cm above the blaine, correlation with chin position is recommended. Loop recorder. Shallower inspiration with accentuation of the cardiac silhouette and vascular crowding. Discussed with Dr. Stanford at 2:36 PM on 09/19/2023. Narrative 09/19/2023 2:39 PM INFORMATION RECEPTIONIST EXAM: DX CHEST RETAINED SURGICAL ITEM 1 [...] sternotomy,mediastinal clips, AVR, mediastinal drains, right IJ Lynn-Sepideh cathetertip at the MPA are identified. Likely [...] RBC (Cell Salvage) : (09/19/2023 1:28 PM INFORMATION RECEPTIONIST) Only the most recent of2 resultswithin the time period is included. Radha Iqbal M.D. BLOOD TRANSFUSION OR DERABLES * Transfuse Fresh Frozen Plasma : (09/19/2023 1:24 PM INFORMATION RECEPTIONIST) Radha Iqbal M.D. BLOOD TRANSFUSION OR DERABLES * ACT (Activated Clotting Time), POCT (09/19/2023 12:42 PM INFORMATION RECEPTIONIST) Only the most recent of8 resultswithin the time period is included. Pathologist [facility] Activated Clotting Time 126 82 - 152 sec 09/19/2023 12:45 PM INFORMATION RECEPTIONIST PCLX 09/19/2023 12:4 2 PM INFORMATION RECEPTIONIST 09/19/2023 12:45 PM INFORMATION RECEPTIONIST Unknown Provider LAB POCT ORDERABLES - DEVICE POC [facility] [address] [place] [address], [facility] PCLX [facility] POC [address] [place] [address] * (ABNORMAL) Hemoglobin (HGB), POCT (09/19/2023 12:17 PM INFORMATION RECEPTIONIST) Only the most recent of2 resultswithin the time period is included. Hemoglobin, POCT, B 8.7(L) 13.2 - 16.6 g/dL 09/19/2023 12:23 PM INFORMATION RECEPTIONIST PCSM Blood 09/19/2023 12:1 7 PM INFORMATION RECEPTIONIST 09/19/2023 12:23 PM INFORMATION RECEPTIONIST Unknown Provider LAB POCT ORDERABLES - DEVICE POC RST [facility] [address] [place] [address], [facility] POC [address] [place] [address] * Surgical Pathology, Frozen Lab (09/19/2023 11:34 AM INFORMATION RECEPTIONIST) 09/25/2023 10:47 AM INFORMATION RECEPTIONIST STMA Participated in the Interpretation Amber Gutierrez M.D. -Pathology Resident 09/25/2023 10:47 AM [facility] Report electronically signed by Zohreh De La Cruz M.D. I verify that I have examined all relevant slides/materials for the specimen(s) and rendered or confirmed the diagnosis. 09/25/2023 10:47 AM INFORMATION RECEPTIONIST STMA Gross Description A. ??Received fresh labeled with the patient's name, medical record number, and designated as heart, left atrial appendage. ??It consists of a 2.6 x 2.4 x 1.3 cm atrial appendage without mural thrombus. ??Production Helper sections are submitted for microscopy in cassette A1. ??Grossed by Teresa Qureshi M.S., PA([facility]). B. ??Received fresh labeled with the [...] up to 0.2 cm in greatest size. ??Production Helper sections are submitted for microscopy in cassette B1, following decalcification. Grossed by Teresa Qureshi M.S., GEORGE([facility]). 09/25/2023 10:47 AM INFORMATION RECEPTIONIST STMA Block Summary A Heart, left atrial appendage A1 B Heart, aortic valve B1 09/25/2023 10:47 AM INFORMATION RECEPTIONIST STMA Interpretation FINAL DIAGNOSIS A. ??Heart, left atrial appendage, excision: Mild myocyte hypertrophy and mild interstitial fibrosis, without mural thrombus. B. ??Heart, aortic valve, excision: ? 1. ??Degenerative fibrocalcific aortic valve disease, with moderate calcification ?(evaluated with Verhoeff-Van Gieson stain on block B1). ? 2. ??History of severe aortic stenosis and trivial aortic regurgitation. Diagnosis was made via digital imaging. 09/25/2023 10:47 AM INFORMATION RECEPTIONIST STMA Tissue (Heart, Atrium) 09/19/2023 11:34 AM INFORMATION RECEPTIONIST Tissue (Heart Valve, Aortic) 09/19/2023 11:34 AM INFORMATION RECEPTIONIST Sarah Miller M.D., M.P.H. LAB SURG PATH ORDERABLES [facility] [address] [place] [address], [facility] 200 [facility] [address] [place] [address] * (EDMUNDO) - INTRAOPERATIVE WITH COLOR AND LIMITED DOPPLER (PROBE NOT PLACED) (09/19/2023 9:56 AM INFORMATION RECEPTIONIST) Ejection Fraction [facility] Anatomical Region Laterality Modality Echocardiography 09/19/2023 6:43 AM INFORMATION RECEPTIONIST Impressions 09/19/2023 1:45 PM INFORMATION RECEPTIONIST PROCEDURE:Transesophageal echocardiogram performed at the request of the primary director water and waste services. Transesophageal echocardiogram completed without complications. PRE-BYPASS:Pre-bypass [...] the Order-Level Documents. Narrative 09/19/2023 1:45 PM INFORMATION RECEPTIONIST For the complete report, see the Order-Level [...] PROCEDURE:Transesophageal echocardiogram performed at the request of [facility] director water and waste services. Transesophageal echocardiogram completedwithout complications. PRE-BYPASS:Pre-bypass left [...] M.D., M.P.H. CV ECHO PROCE DURES * [place] US GUIDE VASC ACCESS, [place] INS/PLC FLOW DIR CATH, MC ANE INVASIVE CATH WITH ULTRASOUND, LDA ANE PACATH, LDA ANE INTRODUCER ONLY, MC ANE CENTRAL LINE GENERIC PERFORMABLE (09/19/2023 8:06 AM INFORMATION RECEPTIONIST) Narrative Deja Barney M.D. - 09/19/2023 8:06 AM INFORMATION RECEPTIONIST Radha Iqbal M.D. ? 09/19/2023 ??8:13 AM [...] fellow participated in the procedure, and the railroad design consultant was present for the entire procedure. Radha Iqbal M.D. PROCEDURE/MINOR SURG ICAL ORDERABLES * [place] ECHO EDMUNDO 2D PLC ONLY (09/19/2023 7:55 AM INFORMATION RECEPTIONIST) Narrative Deja Barney M.D. - 09/19/2023 7:55 AM INFORMATION RECEPTIONIST Radha Iqbal M.D. ? 09/19/2023 ??8:01 AM [...] fellow participated in the procedure, and the railroad design consultant was present for the entire procedure. Radha Iqbal M.D. ANESTHESIA ORDERABLE S * Airway (09/19/2023 7:52 AM INFORMATION RECEPTIONIST) Narrative Radha Iqbal M.D. - 09/19/2023 7:52 AM INFORMATION RECEPTIONIST Radha Iqbal M.D. ? 09/19/2023 ??8:56 AM [...] Radha Iqbal M.D. ANESTHESIA ORDERABLE S * [place] ARTL CATH/CNULA MONITOR PERC, LDA ANE ARTERIAL LINE INSERTION (09/19/2023 7:43 AM INFORMATION RECEPTIONIST) Narrative Deja Barney M.D. - 09/19/2023 7:43 AM INFORMATION RECEPTIONIST Radha Iqbal M.D. ? 09/19/2023 ??8:19 AM [...] fellow participated in the procedure, and the railroad design consultant was present for the entire procedure. Deja Barney M.D. PROCEDURE/MINOR SURG ICAL ORDERABLES * Non-Radiology Image-Anesthesiology Image Exam (09/19/2023 7:00 AM INFORMATION RECEPTIONIST) 09/19/2023 7:00 AM INFORMATION RECEPTIONIST Narrative [facility] - 09/19/2023 8:29 AM INFORMATION RECEPTIONIST This order has been created and auto-finalized to support the import of images acquired without order. The clinical documentation to support these images can be found on the encounter that produced images. Provider Not In System IMG NON RAD IMAGI NG PROCEDURES [facility] NA from Last 3 Months Advance Directives For more information, please contact: [phone] Latest Code Status on File Code Status [...] Answer Comments Full Code: Discussed Care Teams [employer] Relationship Specialty Start Date End Date Kylah Crum M.D. [address] [place] [address] [place] [address] PCP - General Family Medicine 09/28/23
--- OUTSIDE RECORDS SUMMARY | 2023-12-07 11:21 | XMS_ITS | Referral Summary ---
Author Name Unknown Organization [facility] Address [address] [place] [id number] Care Team Providers Care Painter Drum Name Role Phone Kylah Crum M.D. Primary Care Provider [phone] Source Comments Patient records contain information from all sites at [facility]. For routine questions regarding patient records, call [phone] during business hours, M-F 8:00 AM - 5:00 PM Central Time. Record requests for emergency care only can be directed to [phone] at any time.[facility] Encounters Date Type Department Care Team Description 4 Orders Only Department of Cardiovascular Medicine in [place], [place] [address] [place] [phone] Gudelia Soto M.D. Stenosis Aortic Valve Acquired (Primary Dx) 4 Clinical Communication Department of Cardiovascular Medicine in [place], [place] [address] [place] [address] Bethany Downs R.N. Triage 4 Orders Only Division of Nephrology and Hypertension in [place], [place] [address] [place] [phone] Mare Arauz M.D., Ph.D. Stenosis Aortic Valve Acquired (Primary Dx) 4 Clinical Communication Division of Nephrology and Hypertension in [place], [place] [address] [place] [phone] Mare Arauz M.D., Ph.D. Med Question (Priority 2) 4 2:00 PM JUICE WEIGHER External Outreach Division of Nephrology and Hypertension in [place], [place] [address] [place] [phone] Mare Arauz M.D., Ph.D. Congestive Heart Failure (HCC) (Primary Dx) 4 Clinical Communication Department of Anticoagulation in [place], [place] [address] [place] [phone] Edna Gamble R.N. Anticoagulation 4 Clinical Communication Department of Anticoagulation in [place], [place] [address] [place] [phone] Lexi Carson Anticoagulation (Unable to reach) 3 Clinical Communication Division of Nephrology and Hypertension in [place], [place] [address] [place] [phone] Mare Arauz M.D., Ph.D. 3 12:33 PM JUICE WEIGHER - 3 11:59 PM JUICE WEIGHER Hospital Encounter Department of Laboratory Medicine in [address] [phone] Kylah Crum M.D. 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; Cardiac Surgery Status Post; Bypass Coronary Artery Graft Status Post; Prosthesis Aortic Valve; Diabetes Mellitus Type 2 (HCC) Discharge Disposition: Home or Self Care 3 3:00 PM JUICE WEIGHER Anticoagulation Visit Department of Anticoagulation in [place], [place] [address] [place] [phone] Kylah Crum M.D. Diabetes Mellitus Type 2 (HCC) (Primary Dx); 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; Cardiac Surgery Status Post; Bypass Coronary Artery Graft Status Post; Prosthesis Aortic Valve; Atmospheric Drier Tender (Current) Anticoagulant Treatment; Monitoring For Therapeutic Drug Therapy 3 Clinical Communication Department of Cardiovascular Medicine in [address] [phone] Gudelia Soto M.D. 3 Clinical Communication Department of Cardiovascular Surgery in [address] [phone] Sarah Miller M.D., M.P.H. Med Question (Refills or stopping medications) 3 Clinical Communication Department of Anticoagulation in [place], [place] [address] [place] [address] Roberto Kwok M.P.H., R.N. 3 8:00 AM JUICE WEIGHER External Outreach Division of Nephrology and Hypertension in [place], [place] [address] [place] [address] Mare Arauz M.D., Ph.D. Chronic Kidney Disease (CKD), Stage 3b Glomerular Filtration Rate (GFR) 30 To 44 (HCC) (Primary Dx); Hypertension Essential Primary 3 12:42 PM JUICE WEIGHER - 3 11:59 PM JUICE WEIGHER Hospital Encounter Department of Laboratory Medicine in [address] [phone] Kylah Crum M.D. 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; Cardiac Surgery Status Post; Bypass Coronary Artery Graft Status Post; Prosthesis Aortic Valve; Diabetes Mellitus Type 2 (HCC); Atmospheric Drier Tender (Current) Anticoagulant Treatment; Monitoring For Therapeutic Drug Therapy Discharge Disposition: Home or Self Care 3 4:10 PM JUICE WEIGHER Anticoagulation Visit Department of Anticoagulation in [place], [place] [address] [place] [address] Kylah Crum M.D. Diabetes Mellitus Type 2 (HCC) (Primary Dx); 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; Cardiac Surgery Status Post; Bypass Coronary Artery Graft Status Post; Prosthesis Aortic Valve; Atmospheric Drier Tender (Current) Anticoagulant Treatment; Monitoring For Therapeutic Drug Therapy 3 10:50 AM JUICE WEIGHER - 3 11:59 PM JUICE WEIGHER Hospital Encounter Department of Laboratory Medicine in [address] [phone] Kylah Crum M.D. 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; Cardiac Surgery Status Post; Bypass Coronary Artery Graft Status Post; Prosthesis Aortic Valve; Penitentiary (Current) Anticoagulant Treatment; Monitoring For Therapeutic Drug Therapy Discharge Disposition: Home or Self Care 3 11:30 AM JUICE WEIGHER Anticoagulation Visit Department of Anticoagulation in [place], [place] [address] [place] [address] Kylah Crum M.D. Diabetes Mellitus Type 2 (HCC) (Primary Dx); 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; Cardiac Surgery Status Post; Bypass Coronary Artery Graft Status Post; Prosthesis Aortic Valve; Atmospheric Drier Tender (Current) Anticoagulant Treatment; Monitoring For Therapeutic Drug Therapy 3 2:00 PM JUICE WEIGHER Anticoagulation Visit Department of Anticoagulation in [place], [place] [address] [place] [address] Kylah Crum M.D. Prosthesis Aortic Valve (Primary Dx); 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; Cardiac Surgery Status Post; Bypass Coronary Artery Graft Status Post; Penitentiary (Current) Anticoagulant Treatment; Monitoring For Therapeutic Drug Therapy; Diabetes Mellitus Type 2 (HCC) 3 11:20 AM JUICE WEIGHER - 3 11:59 PM JUICE WEIGHER Hospital Encounter Department of Laboratory Medicine in [address] [phone] Kylah Crum M.D. 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; Cardiac Surgery Status Post; Bypass Coronary Artery Graft Status Post; Prosthesis Aortic Valve; Atmospheric Drier Tender (Current) Anticoagulant Treatment; Monitoring For Therapeutic Drug Therapy Discharge Disposition: Home or Self Care 3 11:00 AM JUICE WEIGHER - 3 11:59 PM JUICE WEIGHER Hospital Encounter Department of Laboratory Medicine in [address] [phone] Kylah Crum M.D. 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; Cardiac Surgery Status Post; Bypass Coronary Artery Graft Status Post; Prosthesis Aortic Valve; Penitentiary (Current) Anticoagulant Treatment; Monitoring For Therapeutic Drug Therapy Discharge Disposition: Home or Self Care 3 2:00 PM JUICE WEIGHER Anticoagulation Visit Department of Anticoagulation in [place], [place] [address] [place] [address] Kylah Crum M.D. Prosthesis Aortic Valve (Primary Dx); 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; Cardiac Surgery Status Post; Bypass Coronary Artery Graft Status Post; Atmospheric Drier Tender (Current) Anticoagulant Treatment; Monitoring For Therapeutic Drug Therapy [address] [facility] Kylah Crum M.D. Screening Abdominal Aortic Aneurysm; Diabetes Mellitus Type 2 (HCC) 3 Episode Changes Department of Cardiovascular Medicine in [place], [place] [address] [place] [address] Cony Calzada CEP 3 10:50 AM JUICE WEIGHER - 3 11:59 PM JUICE WEIGHER Hospital Encounter Department of Laboratory Medicine in [place], [place] [address] [place] [address] Kylah Crum M.D. 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; Cardiac Surgery Status Post; Bypass Coronary Artery Graft Status Post; Prosthesis Aortic Valve; Atmospheric Drier Tender (Current) Anticoagulant Treatment; Monitoring For Therapeutic Drug Therapy Discharge Disposition: Home or Self Care 3 11:30 AM JUICE WEIGHER Anticoagulation Visit Department of Anticoagulation in [place], [place] [address] [place] [phone] Kylah Crum M.D. Penitentiary (Current) Anticoagulant Treatment (Primary Dx); 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; Cardiac Surgery Status Post; Bypass Coronary Artery Graft Status Post; Prosthesis Aortic Valve; Monitoring For Therapeutic Drug Therapy 3 12:36 PM JUICE WEIGHER - 3 11:59 PM JUICE WEIGHER Hospital Encounter Department of Laboratory Medicine in [address] [phone] Kylah Crum M.D. 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; Cardiac Surgery Status Post; Bypass Coronary Artery Graft Status Post; Prosthesis Aortic Valve; Penitentiary (Current) Anticoagulant Treatment; Monitoring For Therapeutic Drug Therapy Discharge Disposition: Home or Self Care 3 3:00 PM JUICE WEIGHER Anticoagulation Visit Department of Anticoagulation in [place], [place] [address] [place] [phone] Kylah Crum M.D. Atmospheric Drier Tender (Current) Anticoagulant Treatment (Primary Dx); 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; Cardiac Surgery Status Post; Bypass Coronary Artery Graft Status Post; Prosthesis Aortic Valve; Monitoring For Therapeutic Drug Therapy 3 1:00 PM JUICE WEIGHER Virtual Visit Department of Cardiovascular Surgery in [address] [phone] Mariama Monk APRN, C.N.P. Cardiac Surgery Status Post (Primary Dx); 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; Prosthesis Aortic Valve; Atmospheric Drier Tender (Current) Anticoagulant Treatment 3 11:00 AM JUICE WEIGHER Anticoagulation Visit Department of Anticoagulation in [place], [place] [address] [place] [phone] Kylah Crum M.D. Penitentiary (Current) Anticoagulant Treatment (Primary Dx); 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; Cardiac Surgery Status Post; Bypass Coronary Artery Graft Status Post; Prosthesis Aortic Valve; Monitoring For Therapeutic Drug Therapy 3 10:20 AM JUICE WEIGHER - 3 11:59 PM JUICE WEIGHER Hospital Encounter Department of Laboratory Medicine in [address] [phone] Kylah Crum M.D. 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; Cardiac Surgery Status Post; Bypass Coronary Artery Graft Status Post; Prosthesis Aortic Valve; Atmospheric Drier Tender (Current) Anticoagulant Treatment; Monitoring For Therapeutic Drug Therapy Discharge Disposition: Home or Self Care 3 1:30 PM JUICE WEIGHER Telemedicine Department of Cardiovascular Surgery in [place] [id number] [place] [phone] Laila Basurto P.A.-C. Mariama Monk APRN, C.N.PJarrett Cardiac Surgery Status Post (Primary Dx); Bypass Coronary Artery Graft Status Post; Prosthesis Aortic Valve; 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; Coronary Artery Disease Without Angina Pectoris 3 Clinical Communication Department of Family Medicine, [facility], in [address] [phone] Kylah Crum M.D. Results 3 4:45 PM JUICE WEIGHER Internal E-Consult Division of Nephrology and Hypertension in [place], [place] [address] [place] [phone] Pavan May M.D. Elevated Creatinine (Primary Dx); Failure Renal Acute (Acute Kidney Injury) (HCC) 3 3:30 PM JUICE WEIGHER Anticoagulation Visit Department of Anticoagulation in [place], [place] [address] [place] [phone] Kylah Crum M.D. Atmospheric Drier Tender (Current) Anticoagulant Treatment (Primary Dx); 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; Cardiac Surgery Status Post; Bypass Coronary Artery Graft Status Post; Prosthesis Aortic Valve; Monitoring For Therapeutic Drug Therapy 3 11:51 AM JUICE WEIGHER - 3 11:59 PM JUICE WEIGHER Hospital Encounter Department of Laboratory Medicine in [address] [phone] Kylah Crum M.D. Chronic Kidney Disease Stage 4 Glomerular Filtration Rate 15-29 (HCC) Discharge Disposition: Home or Self Care 3 11:50 AM JUICE WEIGHER Hospital Encounter Department of Laboratory Medicine in [address] [phone] Kylah Crum M.D. 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; Cardiac Surgery Status Post; Bypass Coronary Artery Graft Status Post; Prosthesis Aortic Valve Discharge Disposition: Home or Self Care 3 Clinical Communication Department of Anticoagulation in [place], [place] [address] [place] [phone] Ralf Peralta R.N. Anticoagulation (CCM enrollment) 3 Clinical Communication Department of Anticoagulation in [place], [place] [address] [place] [phone] Nidia Kuhn Anticoagulation (New enrollment) 3 11:00 AM JUICE WEIGHER Office Visit Department of Family Medicine, [facility], in [address] [address] Kylah Crum M.D. Chronic Kidney Disease Stage [...] Clinical Communication Department of Cardiovascular Surgery in [place], [place] [address] [place] [phone] Sammi Kothari APRN, C.N.P., D.N.P. 3 Clinical Communication [facility] [address] [place] [phone] Sarah Miller M.D., M.P.H. 3 Clinical Communication Department of Anticoagulation in [place], [place] [address] [place] [phone] Edna Quinones R.N. Anticoagulation 3 1:33 PM JUICE WEIGHER - 3 11:59 PM JUICE WEIGHER Hospital Encounter Department of Laboratory Medicine in [address] [phone] Sammi Kothari APRN, C.N.P., D.N.P. Prosthesis Aortic Valve Discharge Disposition: Home or Self Care 3 Clinical Communication [facility] [address] [place] [phone] Sarah Miller M.D., M.P.H. 3 Clinical Communication [facility] [address] [place] [phone] Sarah Miller M.D., M.P.H. 3 5:38 AM JUICE WEIGHER - 3 4:29 PM JUICE WEIGHER Hospital Encounter [facility], Fifth Floor [address] [place] [phone] Sarah Miller M.D., M.P.H. Acquired Aortic Valve [...] Care 3 Clinical Communication [facility] [address] [place] [phone] Sarah Miller M.D., M.P.H. 3 Orders Only Preoperative Evaluation Center in [place], [place] [address] [place] [phone] Fanny Villalobos APRN, C.N.P., D.N.P. 3 7:00 AM JUICE WEIGHER Ancillary Procedure Department of Anesthesiology 3 6:45 AM JUICE WEIGHER Ancillary Procedure [facility] [address] [place] [phone] Sarah Miller M.D., M.P.H. 3 7:00 AM JUICE WEIGHER - 3 3:27 PM JUICE WEIGHER Surgery [facility] [address] [place] [phone] Sarah Miller M.D., M.P.H. REPLACEMENT AORTIC VALVE, POSSIBLE AORTIC ROOT ENLARGEMENT. (On-X Conform 23mm Valve) 3 7:30 AM JUICE WEIGHER Anesthesia Event [facility] [address] [place] [phone] Rowena Antonio M.D. Peyton Corbin, R.R.T., L.R.T. 3 9:45 AM JUICE WEIGHER Office Visit Department of Cardiovascular Surgery in [address] [phone] Elvi Oliva, ITBURCIOS, P.A.-C. Stenosis Aortic Valve Acquired (Primary Dx); [...] Cerebrovascular Accident Personal History 3 9:00 AM JUICE WEIGHER Education Department of Cardiovascular Surgery in [address] [phone] Norman Roca APRN, C.N.P., D.N.P. Dona Kong, R.N. Stenosis Aortic Valve Acquired; Acquired Aortic Valve Disorder 3 Clinical Communication Department of Dental Specialties in [place], [place] [address] [place] [phone] Duc Bowling D.D.S. 3 12:40 PM CDT Virtual Visit Department of Pharmacy in [address] [phone] Norman Roca APRN, C.N.P., D.N.P. Gena May, PharmJarrettD., R.Ph. Stenosis Aortic Valve Acquired; Acquired Aortic Valve Disorder 3 8:45 AM CDT Telemedicine Preoperative Evaluation Center in [place], [place] [address] [place] [phone] Norman Roca APRN, C.N.P., D.N.P. Fanny Villalobos APRN, Cata.N.P., D.N.P. 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 Glomerular Filtration Rate (GFR) 30 To 44 (HCC) from Last 3 Months Allergies No known [...] Active Problems Problem Noted Date Diagnosed Date Atmospheric Drier Tender (Current) Anticoagulant Treatment 09/13 Bypass Coronary Artery Graft Status Post 023 Cardiac Surgery Status Post 09/24/2023 Effusion Pleural 09/24/2023 Device Cardiac Status Post 09/23/2023 Overview: Previously placed loop recorder Therapy Atmospheric Drier Tender Antiplatelet 09/22/2023 Coronary Arterial Bypass Graft Status [...] Comments Blood Pressure 108/65 10/01/2023 11:08 AM JUICE WEIGHER aveage Pulse 76 10/01/2023 11:08 AM JUICE WEIGHER Temperature 36.1 ??C (96.9 ??F) 10/01/2023 1 1:08 AM JUICE WEIGHER Respiratory Rate 20 10/01/2023 11:0 8 AM JUICE WEIGHER Oxygen Saturation 98% 10/01/2023 11: 08 AM JUICE WEIGHER Inhaled Oxygen Concentration - - Weight 90.2 kg (198 lb 11.9 oz) 023 11:08 AM JUICE WEIGHER Height 172.4 cm (5' 7.87) 10/01/2023 1 1:08 AM JUICE WEIGHER Body Mass Index 30.33 10/01/2023 11:08 AM JUICE WEIGHER Plan of Treatment Upcoming Encounters Date Type Department Care Team (Latest Contact Info) Description 12/21/2023 10:15 AM JUICE WEIGHER Clinical Communication Virtual Review in [place], [place] 200 [place] [address] 12/24/2023 2:00 PM JUICE WEIGHER Comprehensive Visit Department of Cardiovascular Medicine in [place], [place] [address] [place] [phone] Gudelia Soto M.D. [address] [place] [phone] 01/01/2024 3:45 PM JUICE WEIGHER Comprehensive Visit Division of Hematology in [place], [place] [address] [place] [phone] Billy Segal APRN, C.N.P., D.N.P. [address] [place] [phone] Medical Devices Implanted Type Area Formula Maker Device Identifier Shelf Expiration Date Model / Serial / Lot Matt Hernandez [facility] 23 - [id number] - [id number] Implanted:Qty : 1 on 09/19/2023 by Sarah Miller M.D., M.P.H. at [facility] Cardiac Valve Prosthesis N/A: Aortic Valve [employer]ion (Prev. [employer]) 2028 ONXACE-23 / [id number] / Justin Surg Tfln 1x6 - [id number] Implanted:Qty : 1 on 09/19/2023 by Sarah Miller M.D., M.P.H. at [facility] Hardware e.g. pins/screws/r ods N/A: Chest [employer] [id number] / / Procedures Procedure Name Priority Date/Time Associated Diagnosis Comments OUTSIDE DX CHEST Routine 11/11/2023 8:30 AM JUICE WEIGHER OUTSIDE DX CHEST Routine 11/08/2023 3:25 PM JUICE WEIGHER INR REFLEX, POCT, B Routine 11/02/2023 12:42 PM JUICE WEIGHER Coronary Arterial Bypass Graft Status Post Personal History Cardiac Surgery Status Post Bypass Coronary Artery Graft Status Post Prosthesis Aortic Valve Diabetes Mellitus Type 2 (HCC) OUTSIDE DX CHEST Routine 10/31/2023 9:00 AM JUICE WEIGHER INR REFLEX, POCT, B Routine 10/29/2023 12:50 PM JUICE WEIGHER Coronary Arterial Bypass Graft Status Post Personal History Cardiac Surgery Status Post Bypass Coronary Artery Graft Status Post Prosthesis Aortic Valve Diabetes Mellitus Type 2 (HCC) Atmospheric Drier Tender (Current) Anticoagulant Treatment Monitoring For Therapeutic Drug Therapy INR REFLEX, POCT, B Routine 10/26/2023 11:36 AM JUICE WEIGHER Coronary Arterial Bypass Graft Status Post Personal History Cardiac Surgery Status Post Bypass Coronary Artery Graft Status Post Prosthesis Aortic Valve Atmospheric Drier Tender (Current) Anticoagulant Treatment Monitoring For Therapeutic Drug Therapy INR REFLEX, POCT, B Routine 10/22/2023 11:32 AM JUICE WEIGHER Coronary Arterial Bypass Graft Status Post Personal History Cardiac Surgery Status Post Bypass Coronary Artery Graft Status Post Prosthesis Aortic Valve Atmospheric Drier Tender (Current) Anticoagulant Treatment Monitoring For Therapeutic Drug Therapy INR REFLEX, POCT, B Routine 10/17/2023 11:22 AM JUICE WEIGHER Coronary Arterial Bypass Graft Status Post Personal History Cardiac Surgery Status Post Bypass Coronary Artery Graft Status Post Prosthesis Aortic Valve Atmospheric Drier Tender (Current) Anticoagulant Treatment Monitoring For Therapeutic Drug Therapy INR REFLEX, POCT, B Routine 10/12/2023 11:03 AM JUICE WEIGHER Coronary Arterial Bypass Graft Status Post Personal History Cardiac Surgery Status Post Bypass Coronary Artery Graft Status Post Prosthesis Aortic Valve Atmospheric Drier Tender (Current) Anticoagulant Treatment Monitoring For Therapeutic Drug Therapy INR REFLEX, POCT, B Routine 10/08/2023 12:52 PM JUICE WEIGHER Coronary Arterial Bypass Graft Status Post Personal History Cardiac Surgery Status Post Bypass Coronary Artery Graft Status Post Prosthesis Aortic Valve Penitentiary (Current) Anticoagulant Treatment Monitoring For Therapeutic Drug Therapy INR REFLEX, POCT, B Routine 10/05/2023 10:35 AM JUICE WEIGHER Coronary Arterial Bypass Graft Status Post Personal History Cardiac Surgery Status Post Bypass Coronary Artery Graft Status Post Prosthesis Aortic Valve Penitentiary (Current) Anticoagulant Treatment Monitoring For Therapeutic Drug Therapy INR REFLEX, POCT, B Routine 10/01/2023 12:02 PM JUICE WEIGHER Coronary Arterial Bypass Graft Status Post Personal History Cardiac Surgery Status Post Bypass Coronary Artery Graft Status Post Prosthesis Aortic Valve BASIC METABOLIC PANEL, S/P Routine 10/01/2023 12:02 PM JUICE WEIGHER Chronic Kidney Disease Stage 4 Glomerular Filtration Rate 15-29 (HCC) PROTHROMBIN TIME (PT), P Routine 09/28/2023 1:41 PM JUICE WEIGHER Prosthesis Aortic Valve GLUCOSE POCT, B Routine 09/26/2023 11:37 AM JUICE WEIGHER GLUCOSE POCT, B Routine 09/26/2023 7:55 AM JUICE WEIGHER BASIC METABOLIC PANEL, S/P Routine 09/26/2023 6:58 AM JUICE WEIGHER PROTHROMBIN TIME (PT), P Routine 09/26/2023 6:58 AM JUICE WEIGHER CBC WITHOUT DIFFERENTIAL, B Routine 09/26/2023 6:58 AM JUICE WEIGHER GLUCOSE POCT, B Routine 09/25/2023 8:25 PM JUICE WEIGHER GLUCOSE POCT, B Routine 09/25/2023 5:36 PM JUICE WEIGHER GLUCOSE POCT, B Routine 09/25/2023 1:13 PM JUICE WEIGHER BASIC METABOLIC PANEL, S/P Routine 09/25/2023 9:26 AM JUICE WEIGHER PROTHROMBIN TIME (PT), P Routine 09/25/2023 9:26 AM JUICE WEIGHER CBC WITHOUT DIFFERENTIAL, B Routine 09/25/2023 9:26 AM JUICE WEIGHER GLUCOSE POCT, B Routine 09/25/2023 8:10 AM JUICE WEIGHER DX CHEST AP OR PA AND LATERAL 2 VIEWS RAD - Routine (most inpatients and all outpatients) 09/25/2023 7:26 AM JUICE WEIGHER ECG Routine 09/25/2023 4:55 AM JUICE WEIGHER GLUCOSE POCT, B Routine 09/24/2023 8:33 PM JUICE WEIGHER GLUCOSE POCT, B Routine 09/24/2023 4:44 PM JUICE WEIGHER NOCTURNAL OXYGEN STUDY - RT Routine 09/24/2023 3:46 PM JUICE WEIGHER (TTE) 2D ECHO DOPPLER COLOR Routine 09/24/2023 3:26 PM JUICE WEIGHER GLUCOSE POCT, B Routine 09/24/2023 12:43 PM JUICE WEIGHER RT TO ARRANGE FOR HOME DME Routine 09/24/2023 11:14 AM JUICE WEIGHER GLUCOSE POCT, B Routine 09/24/2023 7:19 AM JUICE WEIGHER BASIC METABOLIC PANEL, S/P Routine 09/24/2023 6:49 AM JUICE WEIGHER PROTHROMBIN TIME (PT), P Routine 09/24/2023 6:49 AM JUICE WEIGHER CBC WITHOUT DIFFERENTIAL, B Routine 09/24/2023 6:49 AM JUICE WEIGHER GLUCOSE POCT, B Routine 09/23/2023 9:38 PM JUICE WEIGHER GLUCOSE POCT, B Routine 09/23/2023 5:02 PM JUICE WEIGHER BASIC METABOLIC PANEL, S/P STAT 09/23/2023 3:44 PM JUICE WEIGHER HEMOGLOBIN, B STAT 09/23/2023 3:44 PM JUICE WEIGHER PROTHROMBIN TIME (PT), P STAT 09/23/2023 3:44 PM JUICE WEIGHER GLUCOSE POCT, B Routine 09/23/2023 12:19 PM JUICE WEIGHER DX CHEST AP OR PA AND LATERAL 2 VIEWS RAD - Routine (most inpatients and all outpatients) 09/23/2023 8:44 AM JUICE WEIGHER BASIC METABOLIC PANEL, S/P Routine 09/23/2023 7:34 AM JUICE WEIGHER PROTHROMBIN TIME (PT), P Routine 09/23/2023 7:34 AM JUICE WEIGHER CBC WITHOUT DIFFERENTIAL, B Routine 09/23/2023 7:34 AM JUICE WEIGHER HEPATIC FUNCTION PANEL, S Routine 09/23/2023 7:31 AM JUICE WEIGHER GLUCOSE POCT, B Routine 09/23/2023 7:24 AM JUICE WEIGHER BASIC METABOLIC PANEL, S/P STAT 09/22/2023 11:14 PM JUICE WEIGHER CBC WITHOUT DIFFERENTIAL, B STAT 09/22/2023 11:14 PM JUICE WEIGHER GLUCOSE POCT, B Routine 09/22/2023 9:29 PM JUICE WEIGHER RESPIRATORY ASSESS AND TREAT Routine 09/22/2023 2:00 PM JUICE WEIGHER TRANSFUSE RED BLOOD CELLS Routine 09/22/2023 2:00 PM JUICE WEIGHER GLUCOSE POCT, B Routine 09/22/2023 11:27 AM JUICE WEIGHER GLUCOSE POCT, B Routine 09/22/2023 7:34 AM JUICE WEIGHER BASIC METABOLIC PANEL, S/P Routine 09/22/2023 7:04 AM JUICE WEIGHER PROTHROMBIN TIME (PT), P Routine 09/22/2023 7:04 AM JUICE WEIGHER CBC WITHOUT DIFFERENTIAL, B Routine 09/22/2023 7:04 AM JUICE WEIGHER TYPE AND SCREEN Routine 09/22/2023 7:01 AM JUICE WEIGHER GLUCOSE POCT, B Routine 09/21/2023 10:52 PM JUICE WEIGHER GLUCOSE POCT, B Routine 09/21/2023 7:07 PM JUICE WEIGHER RESPIRATORY ASSESS AND TREAT Routine 09/21/2023 2:00 PM JUICE WEIGHER GLUCOSE POCT, B Routine 09/21/2023 11:27 AM JUICE WEIGHER GLUCOSE POCT, B Routine 09/21/2023 8:50 AM JUICE WEIGHER PROTHROMBIN TIME (PT), P STAT 09/21/2023 7:47 AM JUICE WEIGHER PATIENT STATUS Timed 09/21/2023 6:35 AM JUICE WEIGHER ABG W/COOX Timed 09/21/2023 6:35 AM JUICE WEIGHER GLUCOSE POCT, B Routine 09/21/2023 6:31 AM JUICE WEIGHER BASIC METABOLIC PANEL, S/P Timed 09/21/2023 5:11 AM JUICE WEIGHER PHOSPHORUS (INORGANIC), S Timed 09/21/2023 5:11 AM JUICE WEIGHER MAGNESIUM, S Timed 09/21/2023 5:11 AM JUICE WEIGHER CBC WITHOUT DIFFERENTIAL, B Timed 09/21/2023 5:11 AM JUICE WEIGHER BASIC METABOLIC PANEL, S/P Timed 09/21/2023 12:21 AM JUICE WEIGHER GLUCOSE POCT, B Routine 09/20/2023 8:33 PM JUICE WEIGHER POTASSIUM, S/P Timed 09/20/2023 8:33 PM JUICE WEIGHER GLUCOSE POCT, B Routine 09/20/2023 4:31 PM JUICE WEIGHER BASIC METABOLIC PANEL, S/P STAT 09/20/2023 4:27 PM JUICE WEIGHER RESPIRATORY ASSESS AND TREAT Routine 09/20/2023 2:00 PM JUICE WEIGHER GLUCOSE POCT, B Routine 09/20/2023 11:51 AM JUICE WEIGHER BASIC METABOLIC PANEL, S/P STAT 09/20/2023 11:51 AM JUICE WEIGHER GLUCOSE POCT, B Routine 09/20/2023 6:30 AM JUICE WEIGHER PREPARE PLATELETS STAT 09/20/2023 6:3 0 AM JUICE WEIGHER PREPARE CRYOPRECIPITATE STAT 09/20/2023 4:30 AM JUICE WEIGHER LACTATE, B Timed 09/20/2023 4:11 AM JUICE WEIGHER PATIENT STATUS Timed 09/20/2023 4:11 AM JUICE WEIGHER ABG W/O COOX Timed 09/20/2023 4:11 AM JUICE WEIGHER ACTIVATED PARTIAL THROMBOPLASTIN TIME (APTT), P Timed 09/20/2023 4:09 AM JUICE WEIGHER PROTHROMBIN TIME (PT), P Timed 09/20/2023 4:09 AM JUICE WEIGHER CBC WITHOUT DIFFERENTIAL, B Timed 09/20/2023 4:09 AM JUICE WEIGHER MAGNESIUM, S Timed 09/20/2023 4:09 AM JUICE WEIGHER BASIC METABOLIC PANEL, S/P Timed 09/20/2023 4:09 AM JUICE WEIGHER DX CHEST PORTABLE WITH AM ROUNDS 1 VIEW RAD - Routine (most inpatients and all outpatients) 09/20/2023 3:33 AM JUICE WEIGHER TIMP2/IGFBP7 MANJEET RISK SCORE, U Routine 09/20/2023 3:24 AM JUICE WEIGHER PREPARE PLATELETS STAT 09/20/2023 2:3 0 AM JUICE WEIGHER PREPARE FRESH FROZEN PLASMA STAT 09/20/2023 2:30 AM JUICE WEIGHER PREPARE PLATELETS STAT 09/20/2023 2:3 0 AM JUICE WEIGHER GLUCOSE POCT, B Routine 09/20/2023 1:17 AM JUICE WEIGHER GLUCOSE POCT, B Routine 09/19/2023 11:58 PM JUICE WEIGHER GLUCOSE POCT, B Routine 09/19/2023 11:20 PM JUICE WEIGHER LACTATE, B Timed 09/19/2023 10:58 PM JUICE WEIGHER RESPIRATORY ASSESS AND TREAT Routine 09/19/2023 10:30 PM JUICE WEIGHER GLUCOSE POCT, B Routine 09/19/2023 10:27 PM JUICE WEIGHER GLUCOSE POCT, B Routine 09/19/2023 9:24 PM JUICE WEIGHER ECG Routine 09/19/2023 8:14 PM JUICE WEIGHER GLUCOSE POCT, B Routine 09/19/2023 7:58 PM JUICE WEIGHER LACTATE, B Timed 09/19/2023 7:43 PM JUICE WEIGHER PATIENT STATUS Timed 09/19/2023 7:43 PM JUICE WEIGHER LACTATE, B/P Timed 09/19/2023 7:43 PM JUICE WEIGHER ABG W/COOX Timed 09/19/2023 7:43 PM JUICE WEIGHER GLUCOSE POCT, B Routine 09/19/2023 6:57 PM JUICE WEIGHER GLUCOSE POCT, B Routine 09/19/2023 6:23 PM JUICE WEIGHER DX CHEST PORTABLE 1 VIEW 09/19/2023 5:45 PM JUICE WEIGHER PATIENT STATUS STAT 09/19/2023 5:19 PM JUICE WEIGHER FIBRINOGEN, P STAT 09/19/2023 5:19 PM JUICE WEIGHER PROTHROMBIN TIME (PT), P STAT 09/19/2023 5:19 PM JUICE WEIGHER ACTIVATED PARTIAL THROMBOPLASTIN TIME (APTT), P STAT 09/19/2023 5:19 PM JUICE WEIGHER CBC WITHOUT DIFFERENTIAL, B STAT 09/19/2023 5:19 PM JUICE WEIGHER LACTATE, B STAT 09/19/2023 5:19 PM JUICE WEIGHER ABG W/COOX STAT 09/19/2023 5:19 PM JUICE WEIGHER BASIC METABOLIC PANEL, S/P STAT 09/19/2023 5:19 PM JUICE WEIGHER CYSTATIN C WITH EGFR Timed 09/19/2023 5:19 PM JUICE WEIGHER Acquired Aortic Valve Disorder AIRWAY CARE Routine 09/19/2023 5:16 PM JUICE WEIGHER MECHANICAL VENTILATOR Routine 09/19/2023 5:16 PM JUICE WEIGHER RESPIRATORY ASSESS AND TREAT Routine 09/19/2023 5:07 PM JUICE WEIGHER TRANSFUSE PLATELETS Routine 09/19/2023 4 :58 PM JUICE WEIGHER PLATELETS, B STAT 09/19/2023 4:20 PM JUICE WEIGHER PROTHROMBIN TIME (PT), P STAT 09/19/2023 4:20 PM JUICE WEIGHER FIBRINOGEN, P STAT 09/19/2023 4:20 PM JUICE WEIGHER ACTIVATED PARTIAL THROMBOPLASTIN TIME (APTT), P STAT 09/19/2023 4:20 PM JUICE WEIGHER LACTATE, B STAT 09/19/2023 4:20 PM JUICE WEIGHER GLUCOSE, WHOLE BLOOD STAT 09/19/2023 4:20 PM JUICE WEIGHER POTASSIUM, B STAT 09/19/2023 4:20 PM JUICE WEIGHER SODIUM, B STAT 09/19/2023 4:20 PM JUICE WEIGHER CALCIUM, IONIZED, S/B STAT 09/19/2023 4:20 PM JUICE WEIGHER ABG W/COOX STAT 09/19/2023 4:20 PM JUICE WEIGHER TRANSFUSE CRYOPRECIPITATE Routine 09/19/2023 3:53 PM JUICE WEIGHER TRANSFUSE CRYOPRECIPITATE Routine 09/19/2023 3:51 PM JUICE WEIGHER TRANSFUSE RED BLOOD CELLS Routine 09/19/2023 3:50 PM JUICE WEIGHER THROMBOELASTOGRAPH, KAOLIN, B STAT 09/19/2023 3:37 PM JUICE WEIGHER THROMBOELASTOGRAPH, KAOLIN + HEPARINASE, B STAT 09/19/2023 3:37 PM JUICE WEIGHER PLATELETS, B STAT 09/19/2023 3:37 PM JUICE WEIGHER PROTHROMBIN TIME (PT), P STAT 09/19/2023 3:37 PM JUICE WEIGHER FIBRINOGEN, P STAT 09/19/2023 3:37 PM JUICE WEIGHER ACTIVATED PARTIAL THROMBOPLASTIN TIME (APTT), P STAT 09/19/2023 3:37 PM JUICE WEIGHER LACTATE, B STAT 09/19/2023 3:37 PM JUICE WEIGHER GLUCOSE, WHOLE BLOOD STAT 09/19/2023 3:37 PM JUICE WEIGHER POTASSIUM, B STAT 09/19/2023 3:37 PM JUICE WEIGHER SODIUM, B STAT 09/19/2023 3:37 PM JUICE WEIGHER CALCIUM, IONIZED, S/B STAT 09/19/2023 3:37 PM JUICE WEIGHER ABG W/COOX STAT 09/19/2023 3:37 PM JUICE WEIGHER TRANSFUSE RED BLOOD CELLS Routine 09/19/2023 3:23 PM JUICE WEIGHER PLATELETS, B STAT 09/19/2023 2:46 PM JUICE WEIGHER PROTHROMBIN TIME (PT), P STAT 09/19/2023 2:46 PM JUICE WEIGHER FIBRINOGEN, P STAT 09/19/2023 2:46 PM JUICE WEIGHER ACTIVATED PARTIAL THROMBOPLASTIN TIME (APTT), P STAT 09/19/2023 2:46 PM JUICE WEIGHER GLUCOSE, WHOLE BLOOD STAT 09/19/2023 2:46 PM JUICE WEIGHER POTASSIUM, B STAT 09/19/2023 2:46 PM JUICE WEIGHER SODIUM, B STAT 09/19/2023 2:46 PM JUICE WEIGHER CALCIUM, IONIZED, S/B STAT 09/19/2023 2:46 PM JUICE WEIGHER ABG W/COOX STAT 09/19/2023 2:46 PM JUICE WEIGHER DX CHEST RETAINED SURGICAL ITEM 1 VIEW RAD - Emergent (Fastest; for the most critically ill patients) 09/19/2023 2:30 PM JUICE WEIGHER TRANSFUSE PLATELETS Routine 09/19/2023 2 :15 PM JUICE WEIGHER TRANSFUSE RED BLOOD CELLS Routine 09/19/2023 2:00 PM JUICE WEIGHER PLATELETS, B STAT 09/19/2023 1:40 PM JUICE WEIGHER PROTHROMBIN TIME (PT), P STAT 09/19/2023 1:40 PM JUICE WEIGHER FIBRINOGEN, P STAT 09/19/2023 1:40 PM JUICE WEIGHER ACTIVATED PARTIAL THROMBOPLASTIN TIME (APTT), P STAT 09/19/2023 1:40 PM JUICE WEIGHER GLUCOSE, WHOLE BLOOD STAT 09/19/2023 1:40 PM JUICE WEIGHER POTASSIUM, B STAT 09/19/2023 1:40 PM JUICE WEIGHER SODIUM, B STAT 09/19/2023 1:40 PM JUICE WEIGHER CALCIUM, IONIZED, S/B STAT 09/19/2023 1:40 PM JUICE WEIGHER ABG W/COOX STAT 09/19/2023 1:40 PM JUICE WEIGHER AUTOLOGOUS RED BLOOD CELLS-CELL SALVAGE Routine 09/19/2023 1:28 PM JUICE WEIGHER TRANSFUSE FRESH FROZEN PLASMA Routine 09/19/2023 1:24 PM JUICE WEIGHER TRANSFUSE PLATELETS Routine 09/19/2023 1 :09 PM JUICE WEIGHER LACTATE, B STAT 09/19/2023 12:45 PM JUICE WEIGHER GLUCOSE, WHOLE BLOOD STAT 09/19/2023 12:45 PM JUICE WEIGHER POTASSIUM, B STAT 09/19/2023 12:45 PM JUICE WEIGHER SODIUM, B STAT 09/19/2023 12:45 PM JUICE WEIGHER CALCIUM, IONIZED, S/B STAT 09/19/2023 12:45 PM JUICE WEIGHER ABG W/COOX STAT 09/19/2023 12:45 PM JUICE WEIGHER PLATELETS, B STAT 09/19/2023 12:44 PM JUICE WEIGHER PROTHROMBIN TIME (PT), P STAT 09/19/2023 12:44 PM JUICE WEIGHER FIBRINOGEN, P STAT 09/19/2023 12:44 PM JUICE WEIGHER ACTIVATED PARTIAL THROMBOPLASTIN TIME (APTT), P STAT 09/19/2023 12:44 PM JUICE WEIGHER ACT, POCT, B Routine 09/19/2023 12:42 PM JUICE WEIGHER HEMOGLOBIN (HGB), POCT, B Routine 09/19/2023 12:17 PM JUICE WEIGHER ACT, POCT, B Routine 09/19/2023 12:01 PM JUICE WEIGHER GLUCOSE POCT, B Routine 09/19/2023 12:00 PM JUICE WEIGHER SURGICAL PATHOLOGY, FROZEN LAB Routine 09/19/2023 11:34 AM JUICE WEIGHER Stenosis Aortic Valve Acquired AUTOLOGOUS RED BLOOD CELLS-CELL SALVAGE Routine 09/19/2023 11:33 AM JUICE WEIGHER ACT, POCT, B Routine 09/19/2023 11:28 AM JUICE WEIGHER ACT, POCT, B Routine 09/19/2023 10:55 AM JUICE WEIGHER ACT, POCT, B Routine 09/19/2023 10:24 AM JUICE WEIGHER GLUCOSE POCT, B Routine 09/19/2023 10:23 AM JUICE WEIGHER TRANSFUSE RED BLOOD CELLS Routine 09/19/2023 10:13 AM JUICE WEIGHER (EDMUNDO) - INTRAOPERATIVE WITH COLOR AND LIMITED DOPPLER (PROBE NOT PLACED) Routine 09/19/2023 9:56 AM JUICE WEIGHER ACT, POCT, B Routine 09/19/2023 9:51 AM JUICE WEIGHER GLUCOSE, WHOLE BLOOD STAT 09/19/2023 9:51 AM JUICE WEIGHER POTASSIUM, B STAT 09/19/2023 9:51 AM JUICE WEIGHER SODIUM, B STAT 09/19/2023 9:51 AM JUICE WEIGHER CALCIUM, IONIZED, S/B STAT 09/19/2023 9:51 AM JUICE WEIGHER ABG W/COOX STAT 09/19/2023 9:51 AM JUICE WEIGHER ACT, POCT, B Routine 09/19/2023 9:26 AM JUICE WEIGHER HEMOGLOBIN (HGB), POCT, B Routine 09/19/2023 9:24 AM JUICE WEIGHER LACTATE, B STAT 09/19/2023 8:25 AM JUICE WEIGHER GLUCOSE, WHOLE BLOOD STAT 09/19/2023 8:25 AM JUICE WEIGHER POTASSIUM, B STAT 09/19/2023 8:25 AM JUICE WEIGHER SODIUM, B STAT 09/19/2023 8:25 AM JUICE WEIGHER CALCIUM, IONIZED, S/B STAT 09/19/2023 8:25 AM JUICE WEIGHER ABG W/COOX STAT 09/19/2023 8:25 AM JUICE WEIGHER ACT, POCT, B Routine 09/19/2023 8:24 AM JUICE WEIGHER ANE CENTRAL LINE GENERIC PERFORMABLE Routine 09/19/2023 8:06 AM JUICE WEIGHER LDA ANE INTRODUCER ONLY Routine 09/19/2023 8:06 AM JUICE WEIGHER LDA ANE PA CATH Routine 09/19/2023 8:06 AM JUICE WEIGHER ANE INVASIVE CATH WITH ULTRASOUND Routine 09/19/2023 8:06 AM JUICE WEIGHER CA INS/PLC FLOW DIR CATH Routine 09/19/2023 8:06 AM JUICE WEIGHER CA US GUIDE VASC ACCESS Routine 09/19/2023 8:06 AM JUICE WEIGHER CA ECHO EDMUNDO 2D PLC ONLY Routine 09/19/2023 7:55 AM JUICE WEIGHER AIRWAY MANAGEMENT Routine 09/19/2023 7:5 2 AM JUICE WEIGHER LDA ANE ARTERIAL LINE INSERTION Routine 09/19/2023 7:43 AM JUICE WEIGHER CA ARTL CATH/CNULA MONITOR PERC Routine 09/19/2023 7:43 AM JUICE WEIGHER ECHOCARDIOGRAM TRANSESOPHAGEAL 09/19/2023 7:03 AM JUICE WEIGHER Stenosis Aortic Valve Acquired ISOLATION PULMONARY VEIN 09/19/2023 7:03 AM JUICE WEIGHER Stenosis Aortic Valve Acquired LIGATION LEFT ATRIAL APPENDAGE 09/19/2023 7:03 AM JUICE WEIGHER 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 09/19/2023 7:03 AM JUICE WEIGHER Stenosis Aortic Valve Acquired REPLACEMENT AORTIC VALVE 09/19/2023 7:03 AM JUICE WEIGHER Stenosis Aortic Valve Acquired ANESTHESIOLOGY IMAGE EXAM Routine 09/19/2023 7:00 AM JUICE WEIGHER PREPARE RED BLOOD CELLS STAT 09/18/2023 9:04 AM JUICE WEIGHER PREPARE RED BLOOD CELLS STAT 09/18/2023 9:04 AM JUICE WEIGHER PREPARE RED BLOOD CELLS STAT 09/18/2023 9:04 AM JUICE WEIGHER TYPE AND SCREEN Routine 09/18/2023 9:04 AM JUICE WEIGHER Stenosis Aortic Valve Acquired Acquired Aortic Valve Disorder BASIC METABOLIC PANEL, S/P Routine 09/18/2023 9:04 AM JUICE WEIGHER Stenosis Aortic Valve Acquired Acquired Aortic Valve Disorder CBC WITHOUT DIFFERENTIAL, B Routine 09/18/2023 9:04 AM JUICE WEIGHER Stenosis Aortic Valve Acquired Acquired Aortic Valve Disorder from Last 3 Months Results * XR CHEST 1V PORTABLE-Outside Chest Xray (11/11/2023 8:30 AM JUICE WEIGHER) Only the most recent of3 resultswithin the time period is included. Narrative IIMS - 11/11/2023 1:45 PM JUICE WEIGHER This order has been created and auto-finalized to support the import of outside images. If available, original interpretation can be found on the Media Tab in Chart Review, in Document Viewer, or as an image in QREADS. If a re-interpretation or overread is required please follow defined workflow. ?? Provider Not In System IMG DIAGNOSTIC IM AGING PROCEDURES Performing Organization Address [facility] Co de Phone Number IICA NA * INR Reflex, POCT, Blood (11/02/2023 12:42 PM JUICE WEIGHER) Only the most recent of9 resultswithin the time period is included. INR Reflex, POCT, B 3.6 11/02/2023 12:41 PM JUICE WEIGHER [id number] Comment: ----ADDITIONAL INFORMATION---- Standard intensity warfarin therapeutic range: 2.0 to 3.0 ?? High intensity warfarin therapeutic range: 2.5 to 3.5 Blood (Blood, Capillary) 11/02/2023 12:42 PM JUICE WEIGHER 11/02/2023 12:41 PM JUICE WEIGHER Kylah Crum M.D. LAB POCT ORDERABLES - DEVICE [facility] [address] [place] [address], [facility] [id number] [facility] in [place] [address] [place] [address] * (ABNORMAL) Basic Metabolic Panel (10/01/2023 12:02 PM JUICE WEIGHER) Only the most recent of15 resultswithin the time period is included. Potassium, P 4.5 3.6 - 5.2 mmol/L 10/01/2023 4:33 PM JUICE WEIGHER OWAT Sodium, P 137 135 - 145 mmol/L 10/01/2023 4:33 PM JUICE WEIGHER OWAT Chloride, P 99 98 - 107 mmol/L 10/01/2023 4:33 PM JUICE WEIGHER OWAT Bicarbonate, P 24 22 - 29 mmol/L 10/01/2023 4:33 PM JUICE WEIGHER OWAT Anion Gap, P 14 7 - 15 10/01/2023 4:33 PM JUICE WEIGHER OWAT BUN (Blood Urea Nitrogen), P 34(H) 8 - 24 mg/dL 10/01/2023 4:33 PM JUICE WEIGHER OWAT Creatinine 2.36(H) 0.74 - 1.35 mg/dL 10/01/2023 4:33 PM JUICE WEIGHER OWAT Estimated GFR (eGFR) 29(L) >=60 mL/min/BSA 10/01/2023 4:33 PM JUICE WEIGHER OWAT Comment: Estimated GFR calculated using the 2020 CKD_EPI creatinine equation. Calcium, Total, P 8.7(L) 8.8 - 10.2 mg/dL 10/01/2023 4:33 PM JUICE WEIGHER OWAT Glucose, P 222(H) 70 - 140 mg/dL 10/01/2023 4:33 PM JUICE WEIGHER OWAT Blood (Blood, Venous) 10/01/2023 12:02 PM JUICE WEIGHER 10/01/2023 3:43 PM JUICE WEIGHER Kylah Crum M.D. LAB BLOOD ADD-ON [facility] [address] [place] [address], [facility] OWAT [facility] in [place] [address] [place] [address] * (ABNORMAL) Prothrombin Time (PT) (09/28/2023 1:41 PM JUICE WEIGHER) Only the most recent of15 resultswithin the time period is included. Prothrombin Time, P 18.4(H) 9.4 - 12.5 sec 09/28/2023 4:01 PM JUICE WEIGHER OWAT INR 1.6 0.9 - 1.1 09/28/2023 4:01 PM JUICE WEIGHER OWAT Comment: ----ADDITIONAL INFORMATION---- Standard intensity warfarin therapeutic range: 2.0 to 3.0 ?? High intensity warfarin therapeutic range: 2.5 to 3.5 Blood (Blood, Venous) 09/28/2023 1:41 PM JUICE WEIGHER 09/28/2023 3:32 PM JUICE WEIGHER Sammi Kothari APRN C.N.P., D.N.P. LAB BL OOD ADD-ON Performing Organization Address City/[facility]/ZIP Co de Phone Number [facility] [address] [place] [address], [place] OWAT [facility] in [place] [address] [place] [address] * (ABNORMAL) Glucose, POCT (09/26/2023 11:37 AM JUICE WEIGHER) Only the most recent of36 resultswithin the time period is included. Glucose, POCT, B 190(H) 70 - 140 mg/dL 09/26/2023 11:54 AM JUICE WEIGHER PCLX Site Capillary 09/26/2023 11:54 AM JUICE WEIGHER PCLX Last Intake 3-4 hours 09/26/2023 11:54 AM JUICE WEIGHER PCLX Blood 09/26/2023 11:3 7 AM JUICE WEIGHER 09/26/2023 11:54 AM JUICE WEIGHER Unknown Provider LAB POCT ORDERABLES- MANUAL Performing Organization Address City/[facility]/ZIP Co de Phone Number POC [facility] [address] [place] [address], [place] PCLX [facility] POC [address] [place] [address] * (ABNORMAL) CBC without Differential (09/26/2023 6:58 AM JUICE WEIGHER) Only the most recent of10 resultswithin the time period is included. Hemoglobin 8.3(L) 13.2 - 16.6 g/dL 09/26/2023 8:04 AM JUICE WEIGHER DTL Hematocrit 25.5(L) 38.3 - 48.6 % 09/26/2023 8:04 AM JUICE WEIGHER DTL Erythrocytes 2.70(L) 4.35 - 5.65 x10(12)/L 09/26/2023 8:04 AM JUICE WEIGHER DTL MCV 94.4 78.2 - 97.9 fL 09/26/2023 8:04 AM JUICE WEIGHER DTL RBC Distrib Width 13.5 11.8 - 14.5 % 09/26/2023 8:04 AM JUICE WEIGHER DTL Platelet Count 214 135 - 317 x10(9)/L 09/26/2023 8:04 AM JUICE WEIGHER DTL Leukocytes 6.7 3.4 - 9.6 x10(9)/L 09/26/2023 8:04 AM JUICE WEIGHER DTL Blood (Blood, Venous) 09/26/2023 6:58 AM JUICE WEIGHER 09/26/2023 7:43 AM JUICE WEIGHER Jenny Jay, B.Ch., B.A.O. LAB BLOOD ADD-ON [facility] [address] [place] [address], [facility] [address] [place] [address] * DX Chest AP or PA and Lateral 2 Views (09/25/2023 7:26 AM JUICE WEIGHER) Only the most recent of2 resultswithin the time period is included. Anatomical Region Laterality Modality Chest, Thoracic RST LOS, Tho racic ARZ LOS, Thoracic FLA LOS N/A Digital Radiography 09/25/2023 8:59 AM JUICE WEIGHER Impressions 09/25/2023 9:01 AM JUICE WEIGHER Sternotomy with aortic valve replacement. Mild enlargement of cardiac silhouette. Loop recorder. Trace pleural effusions. Azygos fissure. Aortic calcification. Degenerative arthritis thoracic spine. No pneumothorax. No significant change since 09/23/2023. Narrative 09/25/2023 9:01 AM JUICE WEIGHER EXAM: ??DX CHEST AP OR PA AND [...] * ECG 12 Lead (09/25/2023 4:55 AM JUICE WEIGHER) Only the most recent of2 resultswithin the time period is included. Ventricular Rate ECG/Min 69 BPM MUSE CA Interval 140 ms MUSE QRSD Interval 86 ms MUSE QT Interval 420 ms MUSE QTC Interval 450 ms MUSE P [place] 30 degrees MUSE R [place] 29 degrees MUSE T Wave [place] 74 degrees MUSE 09/25/2023 4:55 AM JUICE WEIGHER 09/25/2023 5:12 AM JUICE WEIGHER Impressions MUSE - 09/25/2023 5:13 AM JUICE WEIGHER Normal sinus rhythm Low voltage QRS in limb leads Nonspecific ST and T wave abnormality When compared with ECG of 19-SEP-2023 20:14, No significant change was found Reviewed by MARIELA Dodsno Narrative Procedure Note Joe Kumar Jr., M.D. - 09/25/2023 IMPRESSION: Normal sinus rhythm Low voltage QRS in limb leads Nonspecific ST and T wave abnormality When compared with ECG of 19-SEP-2023 20:14, No significant change was found Reviewed by MARIELA Dodson Laila Basurto P.A.-C. ECG ORDERABLE S MUSE NA * (TTE) 2D ECHO DOPPLER COLOR (09/24/2023 3:26 PM JUICE WEIGHER) Ejection Fraction 64 MC CV EIMS Mid-Ascending [...] Region Laterality Modality Echocardiography 09/24/2023 1:57 PM JUICE WEIGHER Impressions 09/24/2023 5:48 PM JUICE WEIGHER Echocardiogram performed per dismissal echo protocol. Status [...] the Order-Level Documents. Narrative 09/24/2023 5:48 PM JUICE WEIGHER For the complete report, see the Order-Level [...] disc not well seen. Mean aortic prosthetic [id number] mmHg; EOA 2.1 cm2. Trivial (washing jets) [...] DURES * (ABNORMAL) Hemoglobin (09/23/2023 3:44 PM JUICE WEIGHER) Hemoglobin 8.1(L) 13.2 - 16.6 g/dL 09/23/2023 3:52 PM JUICE WEIGHER STMA Blood (Blood, Venous) 09/23/2023 3:44 PM JUICE WEIGHER 09/23/2023 3:49 PM JUICE WEIGHER Laila Basurto P.A.-C. LAB BLOOD ADD -ON [facility] [address] [place] [address], [facility] STMA [facility] [address] [place] [address] * (ABNORMAL) Hepatic Function Panel (09/23/2023 7:31 AM JUICE WEIGHER) Bilirubin, Total, S 0.5 0.0 - 1.2 mg/dL 09/23/2023 9:47 AM JUICE WEIGHER DTL Bilirubin, Direct, S <0.2 0.0 - 0.3 mg/dL 09/23/2023 9:47 AM JUICE WEIGHER DTL Aspartate Aminotransferase (AST), S 21 8 - 48 U/L 09/23/2023 9:47 AM JUICE WEIGHER DTL Alanine Aminotransferase (ALT), S 9 7 - 55 U/L 09/23/2023 9:47 AM JUICE WEIGHER DTL Alkaline Phosphatase, S 63 40 - 129 U/L 09/23/2023 9:47 AM JUICE WEIGHER DTL Albumin, S 3.0(L) 3.5 - 5.0 g/dL 09/23/2023 9:47 AM JUICE WEIGHER DTL Protein, Total, S 4.9(L) 6.3 - 7.9 g/dL 09/23/2023 9:47 AM JUICE WEIGHER DTL Blood (Blood, Venous) 09/23/2023 7:31 AM JUICE WEIGHER 09/23/2023 9:19 AM JUICE WEIGHER Laila Basurto P.A.-C. LAB BLOOD ADD -ON [facility] [address] [place] [address], [facility] DTL [facility] [address] [place] [address] * Transfuse Red Blood Cells : (09/22/2023 4:21 PM JUICE WEIGHER) Only the most recent of5 resultswithin the time period is included. Laila Basurto P.A.-C. BLOOD TRANSFU RAHUL ORDERABLES * Type and Screen (with Reflex Antibody ID) (09/22/2023 7:01 AM JUICE WEIGHER) Only the most recent of2 resultswithin the time period is included. Pathologist [facility] ABORh A Neg Not applicable 09/22/2023 2:10 PM JUICE WEIGHER STRM Antibody Screen Negative Negative 09/22/2023 2:19 PM JUICE WEIGHER STRM Type & Screen Expiration 09/25/2023 23:59 09/22/2023 2:10 PM JUICE WEIGHER STRM Testing Location [place] DEFAULT 09/22/2023 1:41 PM JUICE WEIGHER STRM Blood (Blood, Venous) 09/22/2023 7:01 AM JUICE WEIGHER 09/22/2023 1:41 PM JUICE WEIGHER Laila Basurto P.A.-C. LAB BLOOD BAN K TEST ORDERABLES [facility] [address] [place] [address], [facility] [address] [place] [address] * Patient Status (09/21/2023 6:35 AM JUICE WEIGHER) Only the most recent of4 resultswithin the time period is included. Pathologist [facility] FIO2 0.21 0.21=AIR 09/21/2023 6:39 AM JUICE WEIGHER STMA Spont. breaths/min 18 09/21/2023 6:39 AM JUICE WEIGHER STMA Blood 09/21/2023 6:35 AM JUICE WEIGHER 09/21/2023 6:39 AM JUICE WEIGHER Bryce Wills M.D. LAB BLOOD NON ADD-ON [facility] [address] [place] [address], [facility] STMA [facility] [address] [place] [address] * (ABNORMAL) Blood Gas with Coox, Arterial (09/21/2023 6:35 AM JUICE WEIGHER) Only the most recent of10 resultswithin the time period is included. [facility] pO2 67(L) 83 - 108 mm Hg 09/21/2023 6:41 AM JUICE WEIGHER STMA pCO2 46 35 - 48 mm Hg 09/21/2023 6:41 AM JUICE WEIGHER STMA pH 7.41 7.35 - 7.45 pH 09/21/2023 6:41 AM JUICE WEIGHER STMA Base Excess 4(H) -2 - 3 mmol/L 09/21/2023 6:41 AM JUICE WEIGHER STMA HCO3 29(H) 22 - 26 mmol/L 09/21/2023 6:41 AM JUICE WEIGHER STMA Hemoglobin, Venous 8.2(L) 13.2 - 16.6 g/dL 09/21/2023 6:41 AM JUICE WEIGHER STMA O2Hb 92.5(L) 94.0 - 98.0 % 09/21/2023 6:41 AM JUICE WEIGHER STMA COHb 2.0 <3.0 % 09/21/2023 6:42 AM JUICE WEIGHER STMA MetHb <1.0 <1.5 % 09/21/2023 6:41 AM JUICE WEIGHER STMA CtO2 10.8(L) 18.0 - 21.0 vol % 09/21/2023 6:42 AM JUICE WEIGHER STMA Arterial Sample Site Art Line 09/21/2023 6:41 AM JUICE WEIGHER STMA Comment:Mina's test not don e. Blood (Blood, Arterial) 09/21/2023 6:35 AM JUICE WEIGHER 09/21/2023 6:39 AM JUICE WEIGHER Bryce Wills M.D. LAB BLOOD NON ADD-ON [facility] [address] [place] [address], [facility] STMA [facility] [address] [place] [address] * (ABNORMAL) Phosphorus Inorganic (09/21/2023 5:11 AM JUICE WEIGHER) [facility] Phosphorus (Inorganic), S 5.4(H) 2.5 - 4.5 mg/dL 09/21/2023 6:03 AM JUICE WEIGHER DTL Blood (Blood, Venous) 09/21/2023 5:11 AM JUICE WEIGHER 09/21/2023 5:50 AM JUICE WEIGHER Enmanuel Edward P.A.-C. LAB BLOOD ADD-ON Performing Organization Address City/[facility]/ZIP Co de Phone Number [facility] [address] 200 [place] [address] * (ABNORMAL) Magnesium (09/21/2023 5:11 AM JUICE WEIGHER) Only the most recent of2 resultswithin the time period is included. Magnesium, S 2.4(H) 1.7 - 2.3 mg/dL 09/21/2023 6:03 AM JUICE WEIGHER DT Blood (Blood, Venous) 09/21/2023 5:11 AM JUICE WEIGHER 09/21/2023 5:50 AM JUICE WEIGHER Enmanuel Edward P.A.-C. LAB BLOOD ADD-ON Performing Organization Address [facility] Co de Phone Number [facility] [address] [place], [place] [id number] [place] [address] 200 [place] [address] * Potassium (09/20/2023 8:33 PM JUICE WEIGHER) Potassium, P 5.0 3.6 - 5.2 mmol/L 09/20/2023 8:56 PM JUICE WEIGHER STMA Blood (Blood, Venous) 09/20/2023 8:33 PM JUICE WEIGHER 09/20/2023 8:38 PM JUICE WEIGHER Yenifer Mercado P.A.-C. LAB BLOOD ADD -ON Performing Organization Address City/[facility]/ZIP Co de Phone Number [facility] [address] [place], [place] [address] [place] [address] 200 [place] [address] * Lactate, Whole Blood (09/20/2023 4:11 AM JUICE WEIGHER) Only the most recent of8 resultswithin the time period is included. Lactate, B 1.5 0.5 - 2.2 mmol/L 09/20/2023 4:18 AM JUICE WEIGHER STMA Blood (Blood, Arterial) 09/20/2023 4:11 AM JUICE WEIGHER 09/20/2023 4:15 AM JUICE WEIGHER Cata Encarnacion APRN.N.P., M.S.N. L AB BLOOD NON ADD-ON Performing Organization Address City/[facility]/ZIP Co de Phone Number [facility] [address] [place], [place] [address] 200 [place] [address] * (ABNORMAL) Blood Gas without Coox, Arterial (09/20/2023 4:11 AM JUICE WEIGHER) Pathologist [facility] pO2 79(L) 83 - 108 mm Hg 09/20/2023 4:18 AM JUICE WEIGHER STMA pCO2 43 35 - 48 mm Hg 09/20/2023 4:18 AM JUICE WEIGHER STMA pH 7.37 7.35 - 7.45 pH 09/20/2023 4:18 AM JUICE WEIGHER STMA Base Excess 0 -2 - 3 mmol/L 09/20/2023 4:18 AM JUICE WEIGHER STMA HCO3 25 22 - 26 mmol/L 09/20/2023 4:18 AM JUICE WEIGHER STMA Arterial Sample Site Art Line 09/20/2023 4:18 AM JUICE WEIGHER STMA Comment:Mina's test not don e. Blood (Blood, Arterial) 09/20/2023 4:11 AM JUICE WEIGHER 09/20/2023 4:15 AM JUICE WEIGHER Jenny Jay, B.Ch., B.A.O. LAB BLOOD NON ADD-ON [facility] [address] [place] [id number] STMA [facility] 200 [place] [address] * APTT (Activated Partial Thromboplastin Time) (09/20/2023 4:09 AM JUICE WEIGHER) Only the most recent of7 resultswithin the time period is included. Activated Partial Thrombopl Time, P 26 25 - 37 sec 09/20/2023 5:19 AM JUICE WEIGHER DTL Blood (Blood, Venous) 09/20/2023 4:09 AM JUICE WEIGHER 09/20/2023 4:43 AM JUICE WEIGHER Jenny Jay, B.Ch., B.A.O. LAB BLOOD ADD-ON [facility] [address] [place] [address] * DX Chest Portable with AM Rounds 1 View (09/20/2023 3:33 AM JUICE WEIGHER) Anatomical Region Laterality Modality Chest, Thoracic RST LOS, Tho racic ARZ LOS, Thoracic FLA LOS N/A Digital Radiography 09/20/2023 5:18 AM JUICE WEIGHER Impressions 09/20/2023 5:20 AM JUICE WEIGHER Compared to 09/19/2023. Extubation. Removal of right IJ SGC, sheath remains. Slightly decreased lung volumes. No other significant change. Pulmonary vascular congestion. Bibasilar atelectasis. No definite pneumothorax. Trace pneumomediastinum. Enlarged cardiac silhouette. Retrocardiac atelectasis/consolidation. Azygous fissure. Sternotomy. Mediastinal clips and drains. Loop recorder. Narrative 09/20/2023 5:20 AM JUICE WEIGHER EXAM: ??DX CHEST PORTABLE WITH AM ROUNDS [...] clips and drains. Loop recorder. Jenny Jay, Lucille, B.A.O. IM DIAGNOSTIC IMAGING PROCEDURES * (ABNORMAL) Tissue Inhibitor of Metalloproteinase 2 (TIMP-2) and Insulin-like Growth Factor Binding Protein 7 (IGFBP-7) Risk Score, Random, Urine (09/20/2023 3:24 AM JUICE WEIGHER) TIMP2/IGFBP7 MANJEET Risk Score, U 0.45(H) <0.30 (ng/mL)(2) /1000 09/20/2023 4:12 AM JUICE WEIGHER RUST Comment: ----ADDITIONAL INFORMATION---- <0.30= <0.30 is considered low risk for acute kidney injury. 0.30-2.00= 0.30-2.00 indicates increased risk for acute kidney injury. >2.00= >2.00 indicates high risk for acute kidney injury. Urine (Urine, Midstream) 09/20/2023 3:24 AM JUICE WEIGHER 09/20/2023 3:24 AM JUICE WEIGHER Jenny Jay B.Ch., B.A.O. LAB URINE ORDERABLES [facility] [address] [place] [address], [facility] [address] [place] [address] * (ABNORMAL) Lactate (09/19/2023 7:43 PM JUICE WEIGHER) Pathologist [facility] Lactate, P 7.0(H) 0.5 - 2.2 mmol/L 09/19/2023 8:04 PM JUICE WEIGHER STMA Blood (Blood, Venous) 09/19/2023 7:43 PM JUICE WEIGHER 09/19/2023 7:49 PM JUICE WEIGHER Susu Fajardo LAB BLOOD NON ADD-ON [facility] [address] [place] [address], [facility] [address] [place] [address] * DX Chest Portable 1 View (09/19/2023 5:45 PM JUICE WEIGHER) Anatomical Region Laterality Modality Chest, Thoracic RST LOS, Tho racic ARZ LOS, Thoracic FLA LOS N/A Digital Radiography 09/19/2023 7:33 PM JUICE WEIGHER Impressions 09/19/2023 8:26 PM JUICE WEIGHER Interval retraction of the endotracheal tube, with tip now in the mid thoracic trachea. Otherwise no significant changes since 2:23 PM. Right IJ [place]-Sepideh catheter with tip in the main pulmonary artery. Sternotomy wires and mediastinal surgical clips. Aortic valve replacement. Mediastinal drains. Mild bilateral interstitial thickening and perihilar opacities. No definite pleural effusion. Aortic calcifications. Narrative 09/19/2023 8:26 PM JUICE WEIGHER EXAM: ??DX CHEST PORTABLE 1 VIEW Procedure Note Bhaskar Rob M.B.B.S., MLeonid. - 09/19/2023 EXAM: DX CHEST PORTABLE 1 VIEW IMPRESSION: Interval retraction of the endotracheal tube, with tip now in the midthoracic trachea. Otherwise no significant changes since 2:23 PM. Right IJSwan-Sepideh catheter with tip in the main pulmonary artery. Sternotomy wiresand mediastinal surgical clips. Aortic valve replacement. Mediastinal drains. Mildbilateral interstitial thickening and perihilar opacities. No definitepleural effusion. Aortic calcifications. Jenny Jay, BKolby., B.A.O. IMG DIAGNOSTIC IMAGING PROCEDURES * Transfuse Platelets : (09/19/2023 5:19 PM JUICE WEIGHER) Only the most recent of3 resultswithin the time period is included. Radha Iqbal M.D. BLOOD TRANSFUSION OR DERABLES * (ABNORMAL) Cystatin C with Estimated GFR (09/19/2023 5:19 PM JUICE WEIGHER) eGFR by Cystatin C 59(L) >60 mL/min/BSA 09/19/2023 8:00 PM JUICE WEIGHER DTL Comment: Estimated GFR calculated using the [...] 0.67 - 1.21 mg/L 09/19/2023 8:00 PM JUICE WEIGHER DTL Blood (Blood, Arterial Line) 09/19/2023 5:19 PM JUICE WEIGHER 09/19/2023 5:53 PM JUICE WEIGHER Zoraida Salmeron M.D., Ph.D. LAB BLOOD AD D-ON [address] [address], [facility] [address] [address] * Fibrinogen (09/19/2023 5:19 PM JUICE WEIGHER) Only the most recent of6 resultswithin the time period is included. Pathologist [facility] Fibrinogen, P 269 200 - 393 mg/dL 09/19/2023 5:30 PM JUICE WEIGHER STMA Blood (Blood, Venous) 09/19/2023 5:19 PM JUICE WEIGHER 09/19/2023 5:22 PM JUICE WEIGHER Jenny Jay, B.Ch., B.A.O. LAB BLOOD ADD-ON [facility] [address] [place] [address], [facility] [address] [place] [address] * Sodium, B (09/19/2023 4:20 PM JUICE WEIGHER) Only the most recent of7 resultswithin the time period is included. Sodium, B 139 135 - 145 mmol/L 09/19/2023 4:23 PM JUICE WEIGHER [facility] Blood (Blood, Arterial Line) 09/19/2023 4:20 PM JUICE WEIGHER 09/19/2023 4:20 PM JUICE WEIGHER Rowena Antonio M.D. LAB BLOOD NON A DD-ON Performing Organization Address City/[facility]/ZIP Co de Phone Number [facility] [address] [place] [address], [facility] [address] [place] [address] * Potassium, Blood (09/19/2023 4:20 PM JUICE WEIGHER) Only the most recent of7 resultswithin the time period is included. Potassium, B 4.7 3.6 - 5.2 mmol/L 09/19/2023 4:23 PM JUICE WEIGHER [facility] Blood (Blood, Arterial Line) 09/19/2023 4:20 PM JUICE WEIGHER 09/19/2023 4:20 PM JUICE WEIGHER Rowena Antonio M.D. LAB BLOOD NON A DD-ON [facility] [address] [place] [address], [facility] 200 [place] [address] * (ABNORMAL) Glucose, Whole Blood (09/19/2023 4:20 PM JUICE WEIGHER) Only the most recent of7 resultswithin the time period is included. Glucose 152(H) 70 - 140 mg/dL 09/19/2023 4:23 PM JUICE WEIGHER STMA Blood (Blood, Arterial Line) 09/19/2023 4:20 PM JUICE WEIGHER 09/19/2023 4:20 PM JUICE WEIGHER Rowena Antonio M.D. LAB BLOOD ADD-O N Performing Organization Address City/[facility] Co de Phone Number [facility] 200 [place] [address], [facility] 200 [place] [address] * (ABNORMAL) Platelet Count (09/19/2023 4:20 PM JUICE WEIGHER) Only the most recent of5 resultswithin the time period is included. Platelet Count 94(L) 135 - 317 x10(9)/L 09/19/2023 4:27 PM JUICE WEIGHER [facility] Blood (Blood, Arterial Line) 09/19/2023 4:20 PM JUICE WEIGHER 09/19/2023 4:20 PM JUICE WEIGHER Rowena Antonio M.D. LAB BLOOD ADD-O N Performing Organization Address [facility] de Phone Number [facility] [address] [place] [address] * Calcium, Ionized (09/19/2023 4:20 PM JUICE WEIGHER) Only the most recent of7 resultswithin the time period is included. Calcium, Ionized, B 5.02 4.65 - 5.30 mg/dL 09/19/2023 4:23 PM JUICE WEIGHER STMA Blood (Blood, Arterial Line) 09/19/2023 4:20 PM JUICE WEIGHER 09/19/2023 4:20 PM JUICE WEIGHER Rowena Antonio M.D. LAB BLOOD NON A DD-ON Performing Organization Address City/[facility] Co de Phone Number [facility] [address] [place] [address], [facility] [address] [place] [address] * Transfuse Pooled Cryoprecipitate: (09/19/2023 3:54 PM JUICE WEIGHER) Only the most recent of2 resultswithin the time period is included. Rowena Antonio M.D. BLOOD TRANSFUSI ON ORDERABLES * Thromboelastograph, Kaolin + Heparinase (09/19/2023 3:37 PM JUICE WEIGHER) R-Heparinase, TEG 4.7 1.9 - 6.5 min 09/19/2023 5:46 PM JUICE WEIGHER STMA K-Heparinase, TEG 1.3 1.0 - 1.9 min 09/19/2023 5:46 PM JUICE WEIGHER STMA Angle-Heparina se, TEG 72.0 63.5 - 75.1 degrees 09/19/2023 5:46 PM JUICE WEIGHER STMA MA-Heparinase, TEG 65.9 57.7 - 69.3 mm 09/19/2023 5:46 PM JUICE WEIGHER STMA Pq58-Nmlruxbbd e, TEG 0.0 0.0 - 4.7 % 09/19/2023 5:46 PM JUICE WEIGHER STMA Tk58-Tmpwwaemi e, TEG 1.1 0.0 - 15.0 % 09/19/2023 5:46 PM JUICE WEIGHER STMA Blood (Blood, Arterial Line) 09/19/2023 3:37 PM JUICE WEIGHER 09/19/2023 3:37 PM JUICE WEIGHER Rowena Antonio M.D. LAB BLOOD NON A DD-ON [facility] [address] [place] [address], [facility] STMA [facility] [address] [place] [address] * Thromboelastograph, Kaolin, Blood (09/19/2023 3:37 PM JUICE WEIGHER) R, Kaolin, TEG 4.8 4.0 - 9.0 min 09/19/2023 5:46 PM JUICE WEIGHER STMA K, Kaolin, TEG 1.3 1.0 - 1.8 min 09/19/2023 5:46 PM JUICE WEIGHER STMA Angle, Kaolin, TEG 70.0 64.0 - 78.1 degrees 09/19/2023 5:46 PM JUICE WEIGHER STMA MA, Kaolin, TEG 65.4 57.1 - 72.6 mm 09/19/2023 5:46 PM JUICE WEIGHER STMA Ly30, Kaolin, TEG 0.0 0.0 - 4.8 % 09/19/2023 5:46 PM JUICE WEIGHER STMA Blood (Blood, Arterial Line) 09/19/2023 3:37 PM JUICE WEIGHER 09/19/2023 3:37 PM JUICE WEIGHER Rowena Antonio M.D. LAB BLOOD NON A DD-ON [facility] [address] [place] [address], [facility] STMA [facility] [address] [place] [address] * DX Chest Retained Surgical Item 1 View (09/19/2023 2:30 PM JUICE WEIGHER) Anatomical Region Laterality Modality Chest, Thoracic RST LOS, Tho racic ARZ LOS, Thoracic FLA LOS N/A Digital Radiography 09/19/2023 2:32 PM JUICE WEIGHER Impressions 09/19/2023 2:39 PM JUICE WEIGHER The aforementioned object in question is not identified. New sternotomy, mediastinal clips, AVR, mediastinal drains, right IJ [place]-Sepideh catheter tip at the MPA are identified. Likely small amount of mediastinal air. ET tube tip is low lying, approximately 1 cm above the blaine, correlation with chin position is recommended. Loop recorder. Shallower inspiration with accentuation of the cardiac silhouette and vascular crowding. Discussed with Dr. Stanford at 2:36 PM on 09/19/2023. Narrative 09/19/2023 2:39 PM JUICE WEIGHER EXAM: DX CHEST RETAINED SURGICAL ITEM 1 [...] sternotomy,mediastinal clips, AVR, mediastinal drains, right IJ [place]-Sepideh cathetertip at the MPA are identified. Likely [...] RBC (Cell Salvage) : (09/19/2023 1:28 PM JUICE WEIGHER) Only the most recent of2 resultswithin the time period is included. Radha Iqbal M.D. BLOOD TRANSFUSION OR DERABLES * Transfuse Fresh Frozen Plasma : (09/19/2023 1:24 PM JUICE WEIGHER) Radha Iqbal M.D. BLOOD TRANSFUSION OR DERABLES * ACT (Activated Clotting Time), POCT (09/19/2023 12:42 PM JUICE WEIGHER) Only the most recent of8 resultswithin the time period is included. [facility] Activated Clotting Time 126 82 - 152 sec 09/19/2023 12:45 PM JUICE WEIGHER PCLX 09/19/2023 12:4 2 PM JUICE WEIGHER 09/19/2023 12:45 PM JUICE WEIGHER Unknown Provider LAB POCT ORDERABLES - DEVICE POC [facility] [address] [place] [address], [place] PCLX [facility] POC [address] [place] [address] * (ABNORMAL) Hemoglobin (HGB), POCT (09/19/2023 12:17 PM JUICE WEIGHER) Only the most recent of2 resultswithin the time period is included. [facility] Hemoglobin, POCT, B 8.7(L) 13.2 - 16.6 g/dL 09/19/2023 12:23 PM JUICE WEIGHER PCSM Blood 09/19/2023 12:1 7 PM JUICE WEIGHER 09/19/2023 12:23 PM JUICE WEIGHER Unknown Provider LAB POCT ORDERABLES - DEVICE POC RST [facility] [address] [place] [address], [facility] PCSM [facility] POC [address] [place] [address] * Surgical Pathology, Frozen Lab (09/19/2023 11:34 AM JUICE WEIGHER) 09/25/2023 10:47 AM JUICE WEIGHER STMA Participated in the Interpretation Amber Gutierrez M.D. -Pathology Resident 09/25/2023 10:47 AM JUICE WEIGHER STMA Report electronically signed by Zohreh De La Cruz M.D. I verify that I have examined all relevant slides/materials for the specimen(s) and rendered or confirmed the diagnosis. 09/25/2023 10:47 AM JUICE WEIGHER STMA Gross Description A. ??Received fresh labeled with the patient's name, medical record number, and designated as heart, left atrial appendage. ??It consists of a 2.6 x 2.4 x 1.3 cm atrial appendage without mural thrombus. ??Senior Supplier Quality Engineer sections are submitted for microscopy in cassette A1. ??Grossed by Teresa Qureshi M.S., PA([facility]). B. ??Received fresh labeled with the [...] up to 0.2 cm in greatest size. ??Senior Supplier Quality Engineer sections are submitted for microscopy in cassette B1, following decalcification. Grossed by Teresa Qureshi M.S., PA([facility]). 09/25/2023 10:47 AM JUICE WEIGHER STMA Block Summary A Heart, left atrial appendage A1 B Heart, aortic valve B1 09/25/2023 10:47 AM JUICE WEIGHER STMA Interpretation FINAL DIAGNOSIS A. ??Heart, left atrial appendage, excision: Mild myocyte hypertrophy and mild interstitial fibrosis, without mural thrombus. B. ??Heart, aortic valve, excision: ? 1. ??Degenerative fibrocalcific aortic valve disease, with moderate calcification ?(evaluated with Verhoeff-Van Gieson stain on block B1). ? 2. ??History of severe aortic stenosis and trivial aortic regurgitation. Diagnosis was made via digital imaging. 09/25/2023 10:47 AM JUICE WEIGHER STMA Tissue (Heart, Atrium) 09/19/2023 11:34 AM JUICE WEIGHER Tissue (Heart Valve, Aortic) 09/19/2023 11:34 AM JUICE WEIGHER Sarah Miller M.D., M.P.H. LAB SURG PATH ORDERABLES [facility] [address] [place] [address], [address] [place] [address] * (EDMUNDO) - INTRAOPERATIVE WITH COLOR AND LIMITED DOPPLER (PROBE NOT PLACED) (09/19/2023 9:56 AM JUICE WEIGHER) Ejection Fraction [facility] Anatomical Region Laterality Modality Echocardiography 09/19/2023 6:43 AM JUICE WEIGHER Impressions 09/19/2023 1:45 PM JUICE WEIGHER PROCEDURE:Transesophageal echocardiogram performed at the request of the primary valet service attendant. Transesophageal echocardiogram completed without complications. PRE-BYPASS:Pre-bypass left [...] the Order-Level Documents. Narrative 09/19/2023 1:45 PM JUICE WEIGHER For the complete report, see the Order-Level [...] PROCEDURE:Transesophageal echocardiogram performed at the [facility] of [facility] valet service attendant. Transesophageal echocardiogram completedwithout complications. PRE-BYPASS:Pre-bypass left ventricular [...] CENTRAL LINE GENERIC PERFORMABLE (09/19/2023 8:06 AM JUICE WEIGHER) Narrative Deja Barney M.D. - 09/19/2023 8:06 AM JUICE WEIGHER Radha Iqbal M.D. ? 09/19/2023 ??8:13 AM [...] fellow participated in the procedure, and the x ray consultant was present for the entire procedure. Radha Iqbal M.D. PROCEDURE/MINOR SURG ICAL ORDERABLES * CA ECHO EDMUNDO 2D PLC ONLY (09/19/2023 7:55 AM JUICE WEIGHER) Narrative Deja Barney M.D. - 09/19/2023 7:55 AM JUICE WEIGHER Radha Iqbal M.D. ? 09/19/2023 ??8:01 AM [...] fellow participated in the procedure, and the x ray consultant was present for the entire procedure. Radha Iqbal M.D. ANESTHESIA ORDERABLE S * Airway (09/19/2023 7:52 AM JUICE WEIGHER) Narrative Radha Iqbal M.D. - 09/19/2023 7:52 AM JUICE WEIGHER Radha Iqbal M.D. ? 09/19/2023 ??8:56 AM [...] ANE ARTERIAL LINE INSERTION (09/19/2023 7:43 AM JUICE WEIGHER) Narrative Deja Barney M.D. - 09/19/2023 7:43 AM JUICE WEIGHER Radha Iqbal M.D. ? 09/19/2023 ??8:19 AM [...] fellow participated in the procedure, and the x ray consultant was present for the entire procedure. Deja Barney M.D. PROCEDURE/MINOR SURG ICAL ORDERABLES * Non-Radiology Image-Anesthesiology Image Exam (09/19/2023 7:00 AM JUICE WEIGHER) 09/19/2023 7:00 AM JUICE WEIGHER Narrative IIMS - 09/19/2023 8:29 AM JUICE WEIGHER This order has been created and auto-finalized to support the import of images acquired without order. The clinical documentation to support these images can be found on the encounter that produced images. Provider Not In System IMG NON RAD IMAGI NG PROCEDURES IIM[facility] NA from Last 3 Months Advance Directives For more information, please contact: [phone] Latest Code Status on File Code Status [...] Answer Comments Full Code: Discussed Care Teams Painter Drum Relationship Specialty Start Date End Date Kylah Crum M.D. [address] [place] [phone] PCP - General Family Medicine 09/28/23
--- OUTSIDE RECORDS SUMMARY | 2023-12-07 11:21 | XMS_ITS ---
Author Name Unknown Organization [facility] Address [address] [place] [address] Care Team Providers Care Arc And Gas Welder Name Role Phone Unavailable Unavailable Unavailable Surgery Details Not on file Complications Check Surgery Details section. Procedure Estimated Blood Loss Check Surgery Details section. Procedure Findings Check Surgery Details section. Procedure Specimens Taken Check Surgery Details section.
--- OUTSIDE RECORDS SUMMARY | 2023-12-07 11:22 | XMS_ITS | Encounter Summary ---
Author Name Unknown Organization [facility] Address [address] [place] [address] Care Team Providers Care Manufacturing Support Engineer Name Role Phone Kylah Crum M.D. Primary Care Provider Reason for Visit * Reason Onset Date Comments Triage 11/28/2023 Encounter Details Date Type Department Care Team (Latest Contact Info) Description 11/28/2023 Clinical Communication Department of Cardiovascular Medicine in [place], [place] [address] [place] [address] Bethany Downs, RJarrettNJarrett [address] [place] [address] Triage Social History Tobacco Use Types Packs/Day [...] living situation today? I have a [facility] place to live 08/29/2023 Sex and Gender Information Value Date Recorded Sex Assigned at Male 08/29/2023 11:06 AM CDT Gender Identity Male 08/29/2023 11:06 AM CDT Sexual Orientation Straight 08/29/2023 11 :06 AM CDT documented as of this encounter Miscellaneous Notes * Telephone Encounter - Bethany Downs R.N. - 11/28/2023 8:18 AM AMPOULE INSPECTOR Pre-appointment valve clinic triage/record review. The following [...] schedule with Dr. Felipe Soto if possible ULE INSPECTOR documented in this encounter Plan of Treatment Upcoming Encounters Date Type Department Care Team (Latest Contact Info) Description 12/21/2023 10:15 AM AMPOULE INSPECTOR Clinical Communication Virtual Review in [place], [place] 200 [place] [address] 12/24/2023 2:00 PM AMPOULE INSPECTOR Comprehensive Visit Department of Cardiovascular Medicine in [place], [place] [address] [place] [phone] Gudelia Soto M.D. [address] [place] [phone] 01/01/2024 3:45 PM AMPOULE INSPECTOR Comprehensive Visit Division of Hematology in [address] [phone] Billy Segal APRN, C.N.P., D.N.P. [address] [place] [phone] documented as of this encounter Visit Diagnoses Not on filedocumented in this encounter Additional Health Concerns Assessment Noted Time PHQ-9 Depression Total Score: 1 09/10/20 2:06 PM CDT documented as of this encounter Care Teams Manufacturing Support Engineer Relationship Specialty Start Date End Date Kylah Crum M.D. [address] [place] [phone] PCP - General Family Medicine 09/28/23 documented as of this encounter
--- OUTSIDE RECORDS SUMMARY | 2023-12-07 11:22 | XMS_ITS | Encounter Summary ---
Author Name Unknown Organization [facility] Address [address] [place] [address] Care Team Providers Care Fisher Diver Net Name Role Phone Kylah Crum M.D. Primary Care Provider Encounter Details Date Type Department Care Team (Late st Contact Info) Description 11/30/2023 Orders Only Department of Cardiovascular Medicine in [place], [place] [address] [place] [address] Gudelia Soto M.D. [address] [place] [address] Stenosis Aortic Valve Acquired (Primary Dx) Social [...] (Latest Contact Info) Description 12/21/2023 10:15 AM PLANT CULTURE MANAGER Clinical Communication Virtual Review in [place], [place] [address] [place] [address] 12/24/2023 2:00 PM PLANT CULTURE MANAGER Comprehensive Visit Department of Cardiovascular Medicine in [place], [place] [address] [place] [phone] Gudelia Soto M.D. [address] [place] [phone] 01/01/2024 3:45 PM PLANT CULTURE MANAGER Comprehensive Visit Division of Hematology in [place], [place] [address] [place] [phone] iBlly Segal APRN, C.N.P., D.N.P. [address] [place] [address] documented as of this encounter Visit Diagnoses Diagnosis Stenosis Aortic Valve Acquired- Primary documented in this encounter Additional Health Concerns Assessment Noted Time PHQ-9 Depression Total Score: 1 09/10/20 23 2:06 PM CDT documented as of this encounter Care Teams Fisher Diver Net Relationship Specialty Start Date End Date Kylah Crum M.D. [address] [place] [phone] PCP - General Family Medicine 09/28/23 documented as of this encounter
--- OUTSIDE RECORDS SUMMARY | 2023-12-07 11:22 | XMS_ITS | Encounter Summary ---
Author Name Unknown Organization [facility] Address [address] [place] [address] Care Team Providers Care Meterman Name Role Phone Kylah Crum M.D. Primary Care Provider Encounter Details Date Type Department Care Team (Late st Contact Info) Description 11/08/2023 Clinical Communication Division of Nephrology and Hypertension in [place], [place] [address] [place] [address] Mare Arauz M.D., Ph.D. [address] [place] [address] Social History Tobacco Use Types Packs/Day Years [...] your living situation today? I have a [facility] place to live 08/29/2023 Sex and Gender Information Value Date Recorded Sex Assigned at Male 08/29/2023 11:06 AM CDT Gender Identity Male 08/29/2023 11:06 AM CDT Sexual Orientation Straight 08/29/2023 11 :06 AM CDT documented as of this encounter Miscellaneous Notes * Telephone Encounter - Mare Arauz M.D., Ph.D. - 11/08/2023 1:49 PM CST I received a call from facilities technician at [facility]. Patient had a kidney ultrasound with doppler [...] paracentesis are needed. Kay Seymour M.D., Ph.D. TAL FORENSIC EXAMINER documented in this encounter Plan of Treatment Upcoming Encounters Date Type Department Care Team (Latest Contact Info) Description 12/21/2023 10:15 AM DIGITAL FORENSIC EXAMINER Clinical Communication Virtual Review in [place], [place] [address] [place] [address] 12/24/2023 2:00 PM DIGITAL FORENSIC EXAMINER Comprehensive Visit Department of Cardiovascular Medicine in [place], [place] [address] [place] [phone] Gudelia Soto M.D. [address] [place] [phone] 01/01/2024 3:45 PM DIGITAL FORENSIC EXAMINER Comprehensive Visit Division of Hematology in [place], [place] [address] [place] [phone] Billy Segal APRN, C.N.P., D.N.P. [address] [place] [phone] documented as of this encounter Visit Diagnoses Not on filedocumented in this encounter Additional Health Concerns Assessment Noted Time PHQ-9 Depression Total Score: 1 09/10/20 2:06 PM CDT documented as of this encounter Care Teams Meterman Relationship Specialty Start Date End Date Kylah Crum M.D. [address] [place] [phone] PCP - General Family Medicine 09/28/23 documented as of this encounter
--- OUTSIDE RECORDS SUMMARY | 2023-12-07 11:22 | XMS_ITS | Encounter Summary ---
Author Name Unknown Organization [facility] Address [address] [place] [address] Care Team Providers Care Supervisor Briar Shop Name Role Phone Kylah Crum M.D. Primary Care Provider [phone] Reason for Visit * Outpatient (Routine) - Canceled Specialty Diagnoses / Procedures Referred By Sebas t Referred To Contact Anticoagulation Diagnoses Coronary Arterial Bypass Graft Status Post Personal History Cardiac Surgery Status Post Bypass Coronary Artery Graft Status Post Prosthesis Aortic Valve Kylah Crum M.D. [address] [place] [address] [facility] Referral ID Status Reason Start Date Expiration Date V isits Requested Visits Authorized [id number] Canceled 10/01/2023 09/30/2026 300 300 Encounter Details Date Type Department Care Team (Latest Contact Info) Description 11/02/2023 3:00 PM AIRLINE FLIGHT ATTENDANT Anticoagulation Visit Department of Anticoagulation in [place], [place] [address] [place] [address] Kylah Crum M.D. [address] [place] [address] Diabetes Mellitus Type 2 (HCC) [...] your living situation today? I have a [facility] place to live 08/29/2023 Sex and Gender Information Value Date Recorded Sex Assigned at Male 08/29/2023 11:06 AM CDT Gender Identity Male 08/29/2023 11:06 AM CDT Sexual Orientation Straight 08/29/2023 11 :06 AM CDT documented as of this encounter Patient Instructions * Patient Instructions* Keli Anguiano R.N. - 11/02/2023 3:00 PM AIRLINE FLIGHT ATTENDANT Your next INR will be SundayNovember 09. You will need to call the Anticoagulation Program for warfarin dosing at the scheduled time for your nurse visit, as indicated on your Patient Appointment Guide (PAG). To reschedule your appointment or for questions about your warfarin, please call Primary Care Anticoagulation Program at [phone] from 7:30 am to 4:30 pm. Sunday-Sunday [...] if you start any herbal or other [id number] product (check with your doctor, a nurse, or pharmacist). If you change your diet significantly. If you decide to stop or start using tobacco or alcohol. If you notice unusual bruising or bleeding. If you notice dark, tarry, or bright red stools or blood in your urine. If you have a painful and swollen calf. INE FLIGHT ATTENDANT documented in this encounter Progress Notes * [...] or follow-up information: Provider consulted: [facility]- Anticoagulation [facility] Pt is on injectable anticoagulant: No. Plan used: Consult. See Anticoagulation Track Calendar for dosing and plan details. Anticoagulation Visit Summary: Patient repeats back dosing instructions, date of next INR, and has no further questions at this time. Total time spent with patient: 15 minutes INE FLIGHT ATTENDANT documented in this encounter Plan of Treatment Upcoming Encounters Date Type Department Care Team (Latest Contact Info) Description 12/21/2023 10:15 AM AIRLINE FLIGHT ATTENDANT Clinical Communication Virtual Review in [address] [address] 12/24/2023 2:00 PM AIRLINE FLIGHT ATTENDANT Comprehensive Visit Department of Cardiovascular Medicine in [place], [place] [address] [place] [address] Gudelia Soto M.D. [address] [place] [address] 01/01/2024 3:45 PM AIRLINE FLIGHT ATTENDANT Comprehensive Visit Division of Hematology in [place], [place] [address] [place] [phone] Billy Segal APRN, C.N.P., D.N.P. [address] [place] [phone] documented as of this encounter Visit Diagnoses Diagnosis Diabetes Mellitus Type 2 (HCC)- 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 History Cardiac Surgery Status Post Bypass Coronary Artery Graft Status Post Prosthesis Aortic Valve Hose Tester (Current) Anticoagulant Treatment Monitoring For Therapeutic Drug Therapy documented in this encounter Additional Health Concerns Assessment Noted Time PHQ-9 Depression Total Score: 1 09/10/20 2:06 PM CDT documented as of this encounter Care Teams Supervisor Briar Shop Relationship Specialty Start Date End Date Kylah Crum M.D. [address] [place] [phone] PCP - General Family Medicine 09/28/23 documented as of this encounter
--- OUTSIDE RECORDS SUMMARY | 2023-12-07 11:22 | XMS_ITS | Encounter Summary ---
Author Name Unknown Organization [facility] Address [address] [place] [address] Care Team Providers Care Product Designer Name Role Phone Kylah Crum M.D. Primary Care Provider [phone] Reason for Referral * Outpatient (Routine) - Authorized Specialty Diagnoses / Procedures Referred By Contact Referred To Contact Cardiovascular Diseases / Cardiovascular Disease Diagnoses Stenosis Aortic Valve Acquired Mare Aruaz M.D., Ph.D. [address] [place] [phone] [facility] Referral ID Status Reason Start Date Expiration Date V isits Requested Visits Authorized [id number] Authorized 11/27/2023 11/26/2024 1 1 ON PASTE MIXER OPERATOR Encounter Details Date Type Department Care Team (Late st Contact Info) Description 11/27/2023 Orders Only Division of Nephrology and Hypertension in [place], [place] [address] [place] [phone] Mare Arauz M.D., Ph.D. [address] [place] [phone] Stenosis Aortic Valve Acquired (Primary Dx) Social [...] your living situation today? I have a [facility] place to live 08/29/2023 Sex and Gender Information Value Date Recorded Sex Assigned at Male 08/29/2023 11:06 AM CDT Gender Identity Male 08/29/2023 11:06 AM CDT Sexual Orientation Straight 08/29/2023 11 :06 AM CDT documented as of this encounter Plan of Treatment Upcoming Encounters Date Type Department Care Team (Latest Contact Info) Description 12/21/2023 10:15 AM CARBON PASTE MIXER OPERATOR Clinical Communication Virtual Review in [place], [place] 200 [place] [address] 12/24/2023 2:00 PM CARBON PASTE MIXER OPERATOR Comprehensive Visit Department of Cardiovascular Medicine in [place], [place] [address] [place] [phone] Gudelia Soto M.D. [address] [place] [phone] 01/01/2024 3:45 PM CARBON PASTE MIXER OPERATOR Comprehensive Visit Division of Hematology in [place], [place] [address] [place] [phone] Billy Segal APRN, C.N.P., D.N.P. [address] [place] [phone] Scheduled Referrals Name Type Priority Associated Diagnoses [...] documented as of this encounter Care Teams Product Designer Relationship Specialty Start Date End Date Kylah Crum M.D. [address] [place] [phone] PCP - General Family Medicine 09/28/23 documented as of this encounter
--- OUTSIDE RECORDS SUMMARY | 2023-12-07 11:22 | XMS_ITS | Encounter Summary ---
Author Name Unknown Organization [facility] Address [address] [place] [address] Care Team Providers Care Perfumer Name Role Phone Kylah Crum M.D. Primary Care Provider [phone] Reason for Visit * Reason Onset Date Comments Anticoagulation 11/19/2023 Unable to reach Encounter Details Date Type Department Care Team (Latest Contact Info) Description 11/19/2023 Clinical Communication Department of Anticoagulation in [place], [place] [address] [place] [address] Lexi Carson Anticoagulation (Unable to reach) Social [...] time period of missing appointment. No VM ON RAILS WEB DEVELOPER * Telephone Encounter - Lexi Carson - 11/19/2023 10:02 AM CST Patient contacted today by staff as they are overdue for INR draw. Unable to reach. First Attempt. ON RAILS WEB DEVELOPER documented in this encounter Plan of Treatment Upcoming Encounters Date Type Department Care Team (Latest Contact Info) Description 12/21/2023 10:15 AM RUBY ON RAILS WEB DEVELOPER Clinical Communication Virtual Review in [place], [place] [address] [place] [address] 12/24/2023 2:00 PM RUBY ON RAILS WEB DEVELOPER Comprehensive Visit Department of Cardiovascular Medicine in [place], [place] [address] [place] [phone] Gudelia Soto M.D. [address] [place] [phone] 01/01/2024 3:45 PM RUBY ON RAILS WEB DEVELOPER Comprehensive Visit Division of Hematology in [address] [phone] Billy Segal APRN, C.N.P., D.N.P. [address] [place] [phone] documented as of this encounter Visit Diagnoses Not on filedocumented in this encounter Additional Health Concerns Assessment Noted Time PHQ-9 Depression Total Score: 1 09/10/20 23 2:06 PM CDT documented as of this encounter Care Teams Perfumer Relationship Specialty Start Date End Date Kylah Crum M.D. [address] [place] [phone] PCP - General Family Medicine 09/28/23 documented as of this encounter
--- OUTSIDE RECORDS SUMMARY | 2023-12-07 11:22 | XMS_ITS | Encounter Summary ---
Author Name Unknown Organization [facility] Address [address] [place] [address] Care Team Providers Care Power System Operator Name Role Phone Kylah Crum M.D. Primary Care Provider Encounter Details Date Type Department Care Team (Latest Contact Info) Description 10/31/2023 Clinical Communication Department of Anticoagulation in [place], [place] [address] [place] [address] Roberto Kwok, M.P.H., R.N. Social History Tobacco [...] your living situation today? I have a [facility] place to live 08/29/2023 Sex and Gender Information Value Date Recorded Sex Assigned at Male 08/29/2023 11:06 AM CDT Gender Identity Male 08/29/2023 11:06 AM CDT Sexual Orientation Straight 08/29/2023 11 :06 AM CDT documented as of this encounter Miscellaneous Notes * Telephone Encounter - Kelsey Renee, Pharm.D., R.Ph. - 10/31/2023 1:01 PM PEACH GROWER The patient needs an Rx sent. It appears he is done with amiodarone. H GROWER documented in this encounter Plan of Treatment Upcoming Encounters Date Type Department Care Team (Latest Contact Info) Description 12/21/2023 10:15 AM PEACH GROWER Clinical Communication Virtual Review in [place], [place] [address] [place] [address] 12/24/2023 2:00 PM PEACH GROWER Comprehensive Visit Department of Cardiovascular Medicine in [place], [place] [address] [place] [address] Gudelia Soto M.D. [address] [place] [address] 01/01/2024 3:45 PM PEACH GROWER Comprehensive Visit Division of Hematology in [place], [place] [address] [place] [address] Billy Segal APRN, C.N.P., D.N.P. [address] [place] [phone] documented as of this encounter Visit Diagnoses Diagnosis Diabetes Mellitus Type 2 (HCC)- 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 History Prosthesis Aortic Valve Cardiac Surgery Status Post Bypass Coronary Artery Graft Status Post Penitentiary (Current) Anticoagulant Treatment Monitoring For Therapeutic Drug Therapy documented in this encounter Additional Health Concerns Assessment Noted Time PHQ-9 Depression Total Score: 1 09/10/20 23 2:06 PM CDT documented as of this encounter Care Teams Power System Operator Relationship Specialty Start Date End Date Kylah Crum M.D. NPVeda: [id number] [address] [place] [phone] PCP - General Family Medicine 09/28/23 documented as of this encounter
--- OUTSIDE RECORDS SUMMARY | 2023-12-07 11:22 | XMS_ITS | Encounter Summary ---
Author Name Unknown Organization [facility] Address [address] [place] [address] Care Team Providers Care Pipe Fitter Supervisor Maintenance Name Role Phone Kylah Crum M.D. Primary Care Provider [phone] Reason for Visit * Reason Onset Date Comments Med Question 11/27/2023 Priority 2 Encounter Details Date Type Department Care Team (Latest Contact Info) Description 11/27/2023 Clinical Communication Division of Nephrology and Hypertension in [place], [place] [address] [place] [address] Mare Arauz M.D., Ph.D. [address] [place] [phone] Med Question (Priority 2) Social History Tobacco [...] your living situation today? I have a [facility] place to live 08/29/2023 Sex and Gender Information Value Date Recorded Sex Assigned at Male 08/29/2023 11:06 AM CDT Gender Identity Male 08/29/2023 11:06 AM CDT Sexual Orientation Straight 08/29/2023 11 :06 AM CDT documented as of this encounter Plan of Treatment Upcoming Encounters Date Type Department Care Team (Latest Contact Info) Description 12/21/2023 10:15 AM JAILKEEPER Clinical Communication Virtual Review in [place], [place] [address] [place] [address] 12/24/2023 2:00 PM JAILKEEPER Comprehensive Visit Department of Cardiovascular Medicine in [place], [place] [address] [place] [phone] Gudelia Soto M.D. [address] [place] [phone] 01/01/2024 3:45 PM JAILKEEPER Comprehensive Visit Division of Hematology in [place], [place] [address] [place] [address] Billy Segal APRN, C.N.P., D.N.P. [address] [place] [address] documented as of this encounter Visit Diagnoses Not on filedocumented in this encounter Additional Health Concerns Assessment Noted Time PHQ-9 Depression Total Score: 1 09/10/20 23 2:06 PM CDT documented as of this encounter Care Teams Pipe Fitter Supervisor Maintenance Relationship Specialty Start Date End Date Kylah Crum M.D. [address] [place] [phone] PCP - General Family Medicine 09/28/23 documented as of this encounter
--- OUTSIDE RECORDS SUMMARY | 2023-12-07 11:22 | XMS_ITS | Encounter Summary ---
Author Name Unknown Organization [facility] Address [address] [place] [address] Care Team Providers Care Timber Surveyor Name Role Phone Kylah Crum M.D. Primary Care Provider Encounter Details Date Type Department Care Team (Latest Contact Info) Description 11/01/2023 Clinical Communication Department of Cardiovascular Medicine in [place], [place] [address] [place] [phone] Gudelia Soto M.D. [address] [place] [address] Social History Tobacco Use Types Packs/Day Years [...] your living situation today? I have a [facility] place to live 08/29/2023 Sex and Gender Information Value Date Recorded Sex Assigned at Male 08/29/2023 11:06 AM CDT Gender Identity Male 08/29/2023 11:06 AM CDT Sexual Orientation Straight 08/29/2023 11 :06 AM CDT documented as of this encounter Plan of Treatment Upcoming Encounters Date Type Department Care Team (Latest Contact Info) Description 12/21/2023 10:15 AM STOCKING INSPECTOR Clinical Communication Virtual Review in [place], [place] [address] [place] [address] 12/24/2023 2:00 PM STOCKING INSPECTOR Comprehensive Visit Department of Cardiovascular Medicine in [place], [place] [address] [place] [phone] Gudelia Soto M.D. [address] [place] [phone] 01/01/2024 3:45 PM STOCKING INSPECTOR Comprehensive Visit Division of Hematology in [place], [place] [address] [place] [phone] Billy Segal APRN, C.N.P., D.N.P. [address] [place] [address] documented as of this encounter Visit Diagnoses Not on filedocumented in this encounter Additional Health Concerns Assessment Noted Time PHQ-9 Depression Total Score: 1 09/10/20 23 2:06 PM CDT documented as of this encounter Care Teams Timber Surveyor Relationship Specialty Start Date End Date Kylah Crum M.D. [address] [place] [phone] PCP - General Family Medicine 09/28/23 documented as of this encounter
--- OUTSIDE RECORDS SUMMARY | 2023-12-07 11:22 | XMS_ITS | Encounter Summary ---
Author Name Unknown Organization [facility] Address [address] [place] [address] Care Team Providers Care House Mover Name Role Phone Kylah Crum M.D. Primary Care Provider Reason for Visit * Reason Onset Date Comments Med Question 11/01/2023 Refills or stopp ing medications Encounter Details Date Type Department Care Team (Latest Contact Info) Description 11/01/2023 Clinical Communication Department of Cardiovascular Surgery in [place], [place] [address] [place] [phone] Sarah Miller M.D., M.P.H. [address] [place] [phone] Med Question (Refills or stopping medications) Social [...] expects communication via portal: No Phone number: [phone] Surgical Date: 09/19/2023 Surgeon: Angela Request topic and what needs to be addressed? Medication Management Questions to be answered: Wonder if he should continue or stop medications he left the hospital with? Additional comments: Patient has seen his local PCP but was not aware that he would need a follow up visit with a senior construction manager, so one hasn't been schedule I will connect them to the CVD area to work on getting that scheduled. Routing Patient Discharged within last week? No Patient seen by outpatient provider since dismissal? Yes: Provider seen: Dr. Leslie and Appt Date 10/03/2023 Reminder: send to inpatient group if patient DC'd within past week, and has not been seen by outpatient provider Karli DYER documented in this encounter Plan of Treatment Upcoming Encounters Date Type Department Care Team (Latest Contact Info) Description 12/21/2023 10:15 AM RUG DYER Clinical Communication Virtual Review in [place], [place] 200 [place] [address] 12/24/2023 2:00 PM RUG DYER Comprehensive Visit Department of Cardiovascular Medicine in [place], [place] [address] [place] [phone] Gudelia Soto M.D. [address] [place] [phone] 01/01/2024 3:45 PM RUG DYER Comprehensive Visit Division of Hematology in [place], [place] [address] [place] [phone] Billy Segal APRN, C.N.P., D.N.P. [address] [place] [phone] documented as of this encounter Visit Diagnoses Not on filedocumented in this encounter Additional Health Concerns Assessment Noted Time PHQ-9 Depression Total Score: 1 09/10/20 2:06 PM CDT documented as of this encounter Care Teams House Mover Relationship Specialty Start Date End Date Kylah Crum M.D. [address] [place] [phone] PCP - General Family Medicine 09/28/23 documented as of this encounter
--- OUTSIDE RECORDS SUMMARY | 2023-12-07 11:22 | XMS_ITS | Encounter Summary ---
Author Name Unknown Organization [facility] Address [address] [place] [address] Care Team Providers Care Fur Matcher Name Role Phone Kylah Crum M.D. Primary Care Provider [phone] Reason for Visit * Reason Onset Date Comments Anticoagulation 11/22/2023 Encounter Details Date Type Department Care Team (Latest Contact Info) Description 11/22/2023 Clinical Communication Department of Anticoagulation in [address] [place] [address] Edna Gamble RSammi [address] [place] [phone] Anticoagulation Social History Tobacco Use Types Packs/Day [...] Edna Gamble R.N. - 11/22/2023 10:45 AM FIELD UNDERWRITER Jong Harris Primary Care Anticoagulation Episode has been resolved due to transitioning to adifferent Anticoagulation program. Thank you for allowing us to participate in the anticoagulation management of your patient. Primary Care in [facility] Anticoagulation Program at [phone]. InBasket: RST [facility] PRIMARY CARE ANTICOAG SERVICE D UNDERWRITER documented in this encounter Plan of Treatment Upcoming Encounters Date Type Department Care Team (Latest Contact Info) Description 12/21/2023 10:15 AM FIELD UNDERWRITER Clinical Communication Virtual Review in [address] [place] [address] 12/24/2023 2:00 PM FIELD UNDERWRITER Comprehensive Visit Department of Cardiovascular Medicine in [address] [place] [phone] Gudelia Soto M.D. [address] [place] [phone] 01/01/2024 3:45 PM FIELD UNDERWRITER Comprehensive Visit Division of Hematology in [address] [place] [phone] Billy Segal APRN, C.N.P., D.N.P. [address] [place] [phone] documented as of this encounter Visit Diagnoses Diagnosis Diabetes Mellitus Type 2 (HCC)- 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 History Prosthesis Aortic Valve Cardiac Surgery Status Post Bypass Coronary Artery Graft Status Post Custodial (Current) Anticoagulant Treatment Monitoring For Therapeutic Drug Therapy documented in this encounter Additional Health Concerns Assessment Noted Time PHQ-9 Depression Total Score: 1 09/10/20 23 2:06 PM CDT documented as of this encounter Care Teams Fur Matcher Relationship Specialty Start Date End Date Kylah Crum M.D. [address] [place] [phone] PCP - General Family Medicine 09/28/23 documented as of this encounter
--- OUTSIDE RECORDS SUMMARY | 2023-12-07 11:22 | XMS_ITS | Encounter Summary ---
Author Name Unknown Organization [facility] Address [address] [place] [address] Care Team Providers Care Raise Miner Name Role Phone Kylah Crum M.D. Primary Care Provider Reason for Visit * Appointment Request (Routine) - Closed Specialty Diagnoses / Procedures Referred By Sebas gimenez Referred To Contact Nephrology and Hypertension Referral ID Status Reason Start Date Expiration Date Visits Re quested Visits Authorized [id number] Closed 10/19/2023 10/18/2024 1 1 Encounter Details Date Type Department Care Team (Latest Contact Info) Description 10/31/2023 8:00 AM GENERAL STUDIES PROGRAM CHAIR External Outreach Division of Nephrology and Hypertension in [place], [place] [address] [place] [address] Mare Arauz M.D., Ph.D. [address] [place] [address] Chronic Kidney Disease (CKD), Stage 3b Glomerular [...] your living situation today? I have a [facility] place to live 08/29/2023 [...] CORONARY ARTERY BYPASS GRAFT X1, VEIN.; Surgeon: aSrah Miller M.D., M.P.H.; Location:[facility] OR CATH ANGIOGRAM N/A 08/21/2023 Procedure: CORONARY ANGIOGRAPHY; Surgeon: Ezequiel Jack M.D.; Location: [facility] CCL ECHOCARDIOGRAM TRANSESOPHAGEAL N/A 09/19/2023 Procedure: ECHOCARDIOGRAM [...] Seymour M.D., Ph.D. CT CT Job ID: [id number] RAL STUDIES PROGRAM CHAIR documented in this encounter Plan of Treatment Upcoming Encounters Date Type Department Care Team (Latest Contact Info) Description 12/21/2023 10:15 AM GENERAL STUDIES PROGRAM CHAIR Clinical Communication Virtual Review in [address] [address] 12/24/2023 2:00 PM GENERAL STUDIES PROGRAM CHAIR Comprehensive Visit Department of Cardiovascular Medicine in [address] [address] Gudelia Soto M.D. [address] [place] [phone] 01/01/2024 3:45 PM GENERAL STUDIES PROGRAM CHAIR Comprehensive Visit Division of Hematology in [address] [address] Billy Segal APRN, C.N.P., D.N.P. [address] [place] [phone] documented as of this encounter Visit Diagnoses Diagnosis Chronic Kidney Disease (CKD), Stage 3b Glomerular Filtration Rate (GFR) 30 To 44 (HCC)- Primary Hypertension Essential Primary documented in this encounter Additional Health Concerns Assessment Noted Time PHQ-9 Depression Total Score: 1 09/10/20 23 2:06 PM CDT documented as of this encounter Care Teams Raise Miner Relationship Specialty Start Date End Date Kylah Crum M.D. NPVeda: [id number] [address] [place] [address] [place] [phone] PCP - General Family Medicine 09/28/23 documented as of this encounter
--- OUTSIDE RECORDS SUMMARY | 2023-12-07 11:22 | XMS_ITS | Encounter Summary ---
Author Name Unknown Organization [facility] Address [address] [place] [address] Care Team Providers Care Bottling Attendant Name Role Phone Kylah Crum M.D. Primary Care Provider [phone] Encounter Details Date Type Department Care Team (Latest Contact Info) Description 11/02/2023 12:33 PM ROASTERMAN - 11/02/2023 11:59 PM ROASTERMAN Hospital Encounter Department of Laboratory Medicine in [place], [place] [address] [place] [phone] Kylah Crum M.D. [address] [place] [phone] Coronary Arterial Bypass Graft Status Post Personal [...] your living situation today? I have a [facility] place to live 08/29/2023 Sex and Gender [...] (Latest Contact Info) Description 12/21/2023 10:15 AM ROASTERMAN Clinical Communication Virtual Review in [place], [place] [address] [place] [address] 12/24/2023 2:00 PM ROASTERMAN Comprehensive Visit Department of Cardiovascular Medicine in [place], [place] [address] [place] [phone] Gudelia Soto M.D. [address] [place] [phone] 01/01/2024 3:45 PM ROASTERMAN Comprehensive Visit Division of Hematology in [address] [phone] Billy Segal APRN, C.N.P., D.N.P. [address] [place] [phone] documented as of this encounter Procedures Procedure Name Priority Date/Time Associated Diagnosis Comments INR REFLEX, POCT, B Routine 11/02/2023 1 2:42 PM ROASTERMAN Coronary Arterial Bypass Graft Status Post Personal History Cardiac Surgery Status Post Bypass Coronary Artery Graft Status Post Prosthesis Aortic Valve Diabetes Mellitus Type 2 (HCC) documented in this encounter Results * INR Reflex, POCT, Blood (11/02/2023 12:42 PM ROASTERMAN) INR Reflex, POCT, B 3.6 11/02/2023 12:41 PM ROASTERMAN [id number] Comment: ----ADDITIONAL INFORMATION---- Standard intensity warfarin therapeutic range: 2.0 to 3.0 ?? High intensity warfarin therapeutic range: 2.5 to 3.5 Blood (Blood, Capillary) 11/02/2023 12:42 PM ROASTERMAN 11/02/2023 12:41 PM ROASTERMAN Kylah Crum M.D. LAB POCT ORDERABLES - DEVICE [facility] [address] [place] [address], [facility] FB60 [facility] in [place] [address] [place] [address] documented in this encounter Visit Diagnoses Diagnosis Coronary Arterial Bypass Graft Status Post Personal History Cardiac Surgery Status Post Bypass Coronary Artery Graft Status Post Prosthesis Aortic Valve Diabetes Mellitus Type 2 (HCC) documented in this encounter Additional Health Concerns Assessment Noted Time PHQ-9 Depression Total Score: 1 09/10/20 23 2:06 PM CDT documented as of this encounter Care Teams Bottling Attendant Relationship Specialty Start Date End Date Kylah Crum M.D. [address] [place] [address] PCP - General Family Medicine 09/28/23 documented as of this encounter
--- OUTSIDE RECORDS SUMMARY | 2023-12-07 11:22 | XMS_ITS | Encounter Summary ---
Author Name Unknown Organization [facility] Address [address] [place] [address] Care Team Providers Care Insurance Producer Name Role Phone Kylah Crum M.D. Primary Care Provider [phone] Reason for Visit * Appointment Request (Routine) - Closed Specialty Diagnoses / Procedures Referred By Sebas gimenez Referred To Contact Nephrology and Hypertension Referral ID Status Reason Start Date Expiration Date Visits Re quested Visits Authorized [id number] Closed 11/16/2023 11/15/2024 1 1 Encounter Details Date Type Department Care Team (Latest Contact Info) Description 11/27/2023 2:00 PM WAYBILL CLERK External Outreach Division of Nephrology and Hypertension in [place], [place] [address] [place] [address] Mare Arauz M.D., Ph.D. [address] [place] [address] Congestive Heart Failure (HCC) (Primary Dx) Social [...] up. He was recently hospitalized at the [facility] for CHF exacerbation. He had [...] he notices a rapid increase in weight. ILL CLERK documented in this encounter Plan of Treatment Upcoming Encounters Date Type Department Care Team (Latest Contact Info) Description 12/21/2023 10:15 AM WAYBILL CLERK Clinical Communication Virtual Review in [place], [place] 200 [place] [address] 12/24/2023 2:00 PM WAYBILL CLERK Comprehensive Visit Department of Cardiovascular Medicine in [address] [address] Gudelia Soto M.D. [address] [place] [phone] 01/01/2024 3:45 PM WAYBILL CLERK Comprehensive Visit Division of Hematology in [address] [phone] Billy Segal APRN, C.N.P., D.N.P. [address] [place] [phone] documented as of this encounter Visit Diagnoses Diagnosis Congestive Heart Failure (HCC)- Primary documented in this encounter Additional Health Concerns Assessment Noted Time PHQ-9 Depression Total Score: 1 09/10/20 23 2:06 PM CDT documented as of this encounter Care Teams Insurance Producer Relationship Specialty Start Date End Date Kylah Crum M.D. [address] [place] [address] [place] [phone] PCP - General Family Medicine 09/28/23 documented as of this encounter
--- OUTSIDE RECORDS SUMMARY | 2023-12-07 11:23 | XMS_ITS | Encounter Summary ---
Author Name Unknown Organization [facility] Address [address] [place] [address] Care Team Providers Care Helicopter Mechanic Name Role Phone Kylah Crum M.D. Primary Care Provider Encounter Details Date Type Department Care Team (Latest Contact Info) Description 10/26/2023 10:50 AM OPTICIANRY TEACHER - 10/26/2023 11:59 PM [facility] Hospital Encounter Department of Laboratory Medicine in [place], [place] [address] [place] [phone] Kylah Crum M.D. 300 [place] [phone] Coronary Arterial Bypass Graft Status Post Personal History; Cardiac Surgery Status Post; Bypass Coronary Artery Graft Status Post; Prosthesis Aortic Valve; Prison (Current) Anticoagulant Treatment; Monitoring For Therapeutic Drug [...] living situation today? I have a [facility] place to live 08/29/2023 Sex [...] (Latest Contact Info) Description 12/21/2023 10:15 AM OPTICIANRY TEACHER Clinical Communication Virtual Review in [place], [place] 200 [place] [address] 12/24/2023 2:00 PM OPTICIANRY TEACHER Comprehensive Visit Department of Cardiovascular Medicine in [place], [place] [address] [place] [phone] Gudelia Soto M.D. [address] [place] [phone] 01/01/2024 3:45 PM OPTICIANRY TEACHER Comprehensive Visit Division of Hematology in [place], [place] [address] [place] [address] Billy Segal APRN, C.N.P., D.N.P. [address] [place] [address] documented as of this encounter Procedures Procedure Name Priority Date/Time Associated Diagnosis Comments INR REFLEX, POCT, B Routine 10/26/2023 11:36 AM OPTICIANRY TEACHER Coronary Arterial Bypass Graft Status Post Personal History Cardiac Surgery Status Post Bypass Coronary Artery Graft Status Post Prosthesis Aortic Valve Prison (Current) Anticoagulant Treatment Monitoring For Therapeutic Drug Therapy documented in this encounter Results * INR Reflex, POCT, Blood (10/26/2023 11:36 AM OPTICIANRY TEACHER) INR Reflex, POCT, B 3.2 10/26/2023 11:35 AM OPTICIANRY TEACHER [id number] Comment: ----ADDITIONAL INFORMATION---- Standard intensity warfarin therapeutic range: 2.0 to 3.0 ?? High intensity warfarin therapeutic range: 2.5 to 3.5 Blood (Blood, Capillary) 10/26/2023 11:36 AM OPTICIANRY TEACHER 10/26/2023 11:35 AM OPTICIANRY TEACHER Kylah Crum M.D. LAB POCT ORDERABLES - [facility] [address] [place] [address], [facility] FB60 [facility] in [place] [address] [place] [address] documented in this encounter Visit Diagnoses Diagnosis Coronary Arterial Bypass Graft Status Post Personal History Cardiac Surgery Status Post Bypass Coronary Artery Graft Status Post Prosthesis Aortic Valve Prison (Current) Anticoagulant Treatment Monitoring For Therapeutic Drug Therapy documented in this encounter Additional Health Concerns Assessment Noted Time PHQ-9 Depression Total Score: 1 09/10/20 23 2:06 PM CDT documented as of this encounter Care Teams Helicopter Mechanic Relationship Specialty Start Date End Date Kylah Crum M.D. [address] [place] [phone] PCP - General Family Medicine 09/28/23 documented as of this encounter
--- OUTSIDE RECORDS SUMMARY | 2023-12-07 11:23 | XMS_ITS | Encounter Summary ---
Author Name Unknown Organization [facility] Address [address] [place] [address] Care Team Providers Care Structural Metal Worker Name Role Phone Kylah Crum M.D. Primary Care Provider [phone] Encounter Details Date Type Department Care Team (Latest Contact Info) Description 10/17/2023 11:00 AM TEASEL SETTER - 10/17/2023 11:59 PM [facility] Hospital Encounter Department of Laboratory Medicine in [place], [place] [address] [place] [phone] Kylah Crum M.D. [address] [place] [phone] Coronary Arterial Bypass Graft Status Post Personal History; Cardiac Surgery Status Post; Bypass Coronary Artery Graft Status Post; Prosthesis Aortic Valve; Fpc (Current) Anticoagulant Treatment; Monitoring For Therapeutic Drug [...] (Latest Contact Info) Description 12/21/2023 10:15 AM TEASEL SETTER Clinical Communication Virtual Review in [place], [place] [address] [place] [address] 12/24/2023 2:00 PM TEASEL SETTER Comprehensive Visit Department of Cardiovascular Medicine in [place], [place] [address] [place] [address] Gudelia Soto M.D. [address] [place] [phone] 01/01/2024 3:45 PM TEASEL SETTER Comprehensive Visit Division of Hematology in [place], [place] [address] [place] [phone] Bilyl Segal APRN, C.N.P., D.N.P. [address] [place] [phone] documented as of this encounter Procedures Procedure Name Priority Date/Time Associated Diagnosis Comments INR REFLEX, POCT, B Routine 10/17/2023 11:22 AM TEASEL SETTER Coronary Arterial Bypass Graft Status Post Personal History Cardiac Surgery Status Post Bypass Coronary Artery Graft Status Post Prosthesis Aortic Valve Fpc (Current) Anticoagulant Treatment Monitoring For Therapeutic Drug Therapy documented in this encounter Results * INR Reflex, POCT, Blood (10/17/2023 11:22 AM TEASEL SETTER) INR Reflex, POCT, B 4.2 10/17/2023 11:21 AM TEASEL SETTER [id number] Comment: ----ADDITIONAL INFORMATION---- Standard intensity warfarin therapeutic range: 2.0 to 3.0 ?? High intensity warfarin therapeutic range: 2.5 to 3.5 Blood (Blood, Capillary) 10/17/2023 11:22 AM TEASEL SETTER 10/17/2023 11:21 AM TEASEL SETTER Kylah Crum M.D. LAB POCT ORDERABLES - DEVICE [facility] [address] [place] [address], [place] FB60 [facility] in [place] [address] [place] [address] documented in this encounter Visit Diagnoses Diagnosis Coronary Arterial Bypass Graft Status Post Personal History Cardiac Surgery Status Post Bypass Coronary Artery Graft Status Post Prosthesis Aortic Valve Electronics Engineering Manager (Current) Anticoagulant Treatment Monitoring For Therapeutic Drug Therapy documented in this encounter Additional Health Concerns Assessment Noted Time PHQ-9 Depression Total Score: 1 09/10/20 2:06 PM CDT documented as of this encounter Care Teams Structural Metal Worker Relationship Specialty Start Date End Date Kylah Crum M.D. [address] [place] [phone] PCP - General Family Medicine 09/28/23 documented as of this encounter
--- OUTSIDE RECORDS SUMMARY | 2023-12-07 11:23 | XMS_ITS | Encounter Summary ---
Author Name Unknown Organization [facility] Address [address] [place] [address] Care Team Providers Care Nanotechnology Engineering Technician Name Role Phone Kylah Crum M.D. Primary Care Provider [phone] Encounter Details Date Type Department Care Team (Latest Contact Info) Description 10/22/2023 11:20 AM STAFF RADIOGRAPHER - 10/22/2023 11:59 PM [facility] Hospital Encounter Department of Laboratory Medicine in [place], [place] [address] [place] [phone] Kylah Crum M.D. [address] [place] [phone] Coronary Arterial Bypass Graft Status Post Personal History; Cardiac Surgery Status Post; Bypass Coronary Artery Graft Status Post; Prosthesis Aortic Valve; Chcf (Current) Anticoagulant Treatment; Monitoring For Therapeutic Drug [...] your living situation today? I have a [facility] place to live 08/29/2023 Sex and [...] (Latest Contact Info) Description 12/21/2023 10:15 AM STAFF RADIOGRAPHER Clinical Communication Virtual Review in [place], [place] [address] [place] [address] 12/24/2023 2:00 PM STAFF RADIOGRAPHER Comprehensive Visit Department of Cardiovascular Medicine in [place], [place] [address] [place] [phone] Gudelia Soto M.D. [address] [place] [phone] 01/01/2024 3:45 PM STAFF RADIOGRAPHER Comprehensive Visit Division of Hematology in [place], [place] [address] [place] [phone] Billy Segal APRN, C.N.P., D.N.P. [address] [place] [phone] documented as of this encounter Procedures Procedure Name Priority Date/Time Associated Diagnosis Comments INR REFLEX, POCT, B Routine 10/22/2023 11:32 AM STAFF RADIOGRAPHER Coronary Arterial Bypass Graft Status Post Personal History Cardiac Surgery Status Post Bypass Coronary Artery Graft Status Post Prosthesis Aortic Valve Slot Manager (Current) Anticoagulant Treatment Monitoring For Therapeutic Drug Therapy documented in this encounter Results * INR Reflex, POCT, Blood (10/22/2023 11:32 AM STAFF RADIOGRAPHER) INR Reflex, POCT, B 3.6 10/22/2023 11:32 AM STAFF RADIOGRAPHER [id number] Comment: ----ADDITIONAL INFORMATION---- Standard intensity warfarin therapeutic range: 2.0 to 3.0 ?? High intensity warfarin therapeutic range: 2.5 to 3.5 Blood (Blood, Capillary) 10/22/2023 11:32 AM STAFF RADIOGRAPHER 10/22/2023 11:32 AM STAFF RADIOGRAPHER Kylah Crum M.D. LAB POCT ORDERABLES - DEVICE [email or web address] [address] [place] [address], [facility] FB60 [facility] in [place] [address] [place] [address] documented in this encounter Visit Diagnoses Diagnosis Coronary Arterial Bypass Graft Status Post Personal History Cardiac Surgery Status Post Bypass Coronary Artery Graft Status Post Prosthesis Aortic Valve Slot Manager (Current) Anticoagulant Treatment Monitoring For Therapeutic Drug Therapy documented in this encounter Additional Health Concerns Assessment Noted Time PHQ-9 Depression Total Score: 1 09/10/20 23 2:06 PM CDT documented as of this encounter Care Teams Nanotechnology Engineering Technician Relationship Specialty Start Date End Date Kylah Crum M.D. [address] [place] [address] [place] [phone] PCP - General Family Medicine 09/28/23 documented as of this encounter
--- OUTSIDE RECORDS SUMMARY | 2023-12-07 11:23 | XMS_ITS | Encounter Summary ---
Author Name Unknown Organization [facility] Address [address] [place] [address] Care Team Providers Care Stuntman Name Role Phone Kylah Crum M.D. Primary Care Provider Reason for Referral * Outpatient (Routine) - Authorized Specialty Diagnoses / Procedures Referred By Sebas gimenez Referred To Contact Diagnoses Screening Abdominal Aortic Aneurysm Procedures US Aorta AAA Screening Kylah Crum M.D. [address] [place] [address] [facility] Region Referral ID Status Reason Start Date Expiration Date V isits Requested Visits Authorized [id number] Authorized 10/16/2023 10/15/2024 1 1 OR HORSE RACING OFFICIAL Encounter Details Date Type Department Care Team (Late st Contact Info) Description 10/16/2023 Orders Only [facility] Kylah Crum M.D. [address] [place] [phone] Screening Abdominal Aortic Aneurysm; Diabetes [...] living situation today? I have a [facility] place to live 08/29/2023 Sex and Gender Information Value Date Recorded Sex Assigned at Male 08/29/2023 11:06 AM CDT Gender Identity Male 08/29/2023 11:06 AM CDT Sexual Orientation Straight 08/29/2023 11 :06 AM CDT documented as of this encounter Plan of Treatment Upcoming Encounters Date Type Department Care Team (Latest Contact Info) Description 12/21/2023 10:15 AM DOG OR HORSE RACING OFFICIAL Clinical Communication Virtual Review in [address] [phone] 12/24/2023 2:00 PM DOG OR HORSE RACING OFFICIAL Comprehensive Visit Department of Cardiovascular Medicine in [place], [place] [address] [place] [address] Gudelia Soto M.D. [address] [place] [address] 01/01/2024 3:45 PM DOG OR HORSE RACING OFFICIAL Comprehensive Visit Division of Hematology in [place], [place] [address] [place] [address] Billy Segal APRN, C.N.P., D.N.P. [address] [place] [phone] Scheduled Orders Name Type Priority Associated Diagnoses [...] documented as of this encounter Care Teams Stuntman Relationship Specialty Start Date End Date Kylah Crum M.D. [address] [place] [phone] PCP - General Family Medicine 09/28/23 documented as of this encounter
--- OUTSIDE RECORDS SUMMARY | 2023-12-07 11:23 | XMS_ITS | Encounter Summary ---
Author Name Unknown Organization [facility] Address [address] [place] [address] Care Team Providers Care Pump Erector Name Role Phone Kylah Crum M.D. Primary Care Provider [phone] Reason for Visit * Outpatient (Routine) - Canceled Specialty Diagnoses / Procedures Referred By Sebas t Referred To Contact Anticoagulation Diagnoses Coronary Arterial Bypass Graft Status Post Personal History Cardiac Surgery Status Post Bypass Coronary Artery Graft Status Post Prosthesis Aortic Valve Kylah Crum M.D. [address] [place] [address] [facility] Referral ID Status Reason Start Date Expiration Date V isits Requested Visits Authorized [id number] Canceled 10/01/2023 09/30/2026 300 300 Encounter Details Date Type Department Care Team (Latest Contact Info) Description 10/17/2023 2:00 PM INTERNAL CORROSION SPECIALIST Anticoagulation Visit Department of Anticoagulation in [place], [place] [address] [place] [address] Kylah Crum M.D. [address] [place] [address] Prosthesis Aortic Valve (Primary Dx); Coronary Arterial Bypass Graft Status Post Personal History; Cardiac Surgery Status Post; Bypass Coronary Artery Graft Status Post; Fci (Current) Anticoagulant Treatment; Monitoring For Therapeutic Drug [...] Edna Quinones R.N. - 10/17/2023 2:00 PM INTERNAL CORROSION SPECIALIST Your next INR will be 10/22/2023. You will need to call the Anticoagulation Program for warfarin dosing at the scheduled time for your nurse visit, as indicated on your Patient Appointment Guide (PAG). To reschedule your appointment or for questions about your warfarin, please call Primary Care Anticoagulation Program at [phone] from 7:30 am to 4:30 pm. Sunday-Sunday [...] if you start any herbal or other cfgb-mce-horerci product (check with your doctor, a nurse, or pharmacist). If you change your diet significantly. If you decide to stop or start using tobacco or alcohol. If you notice unusual bruising or bleeding. If you notice dark, tarry, or bright red stools or blood in your urine. If you have a painful and swollen calf. RNAL CORROSION SPECIALIST documented in this encounter Progress Notes * [...] indicated above stating consult required. Consulted Anticoagulation [facility] for plan. Currently bridging: no. INR is therapeutic/supratherapeutic. Additional dosing or follow-up information: Provider consulted: Kelsey Renee- Anticoagulation [facility] Pt is on injectable anticoagulant: No. Plan used: Consult. See Anticoagulation Track Calendar for dosing and plan details. Anticoagulation Visit Summary: Patient repeats back dosing instructions, date of next INR, and has no further questions at this time. Total time spent with patient: 30 minutes RNAL CORROSION SPECIALIST documented in this encounter Plan of Treatment Upcoming Encounters Date Type Department Care Team (Latest Contact Info) Description 12/21/2023 10:15 AM INTERNAL CORROSION SPECIALIST Clinical Communication Virtual Review in [place], [place] [address] [place] [address] 12/24/2023 2:00 PM INTERNAL CORROSION SPECIALIST Comprehensive Visit Department of Cardiovascular Medicine in [place], [place] [address] [place] [phone] Gudelia Soto M.D. [address] [place] [phone] 01/01/2024 3:45 PM INTERNAL CORROSION SPECIALIST Comprehensive Visit Division of Hematology in [place], [place] [address] [place] [phone] Billy Segal APRN, C.N.P., D.N.P. [address] [place] [phone] documented as of this encounter Results * INR Reflex, POCT, Blood (10/22/2023 11:32 AM INTERNAL CORROSION SPECIALIST) INR Reflex, POCT, B 3.6 10/22/2023 11:32 AM INTERNAL CORROSION SPECIALIST [id number] Comment: ----ADDITIONAL INFORMATION---- Standard intensity warfarin therapeutic range: 2.0 to 3.0 ?? High intensity warfarin therapeutic range: 2.5 to 3.5 Blood (Blood, Capillary) 10/22/2023 11:32 AM INTERNAL CORROSION SPECIALIST 10/22/2023 11:32 AM INTERNAL CORROSION SPECIALIST Kylah Crum M.D. LAB POCT ORDERABLES - DEVICE [facility] [address] [place] [address], [place] FB60 [facility] in [address] [address] documented in this encounter Visit Diagnoses Diagnosis Prosthesis Aortic Valve- 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 History Cardiac Surgery Status Post Bypass Coronary Artery Graft Status Post Fci (Current) Anticoagulant Treatment Monitoring For Therapeutic Drug Therapy documented in this encounter Additional Health Concerns Assessment Noted Time PHQ-9 Depression Total Score: 1 09/10/20 2:06 PM CDT documented as of this encounter Care Teams Pump Erector Relationship Specialty Start Date End Date Kylah Crum M.D. [address] [place] [phone] PCP - General Family Medicine 09/28/23 documented as of this encounter
--- OUTSIDE RECORDS SUMMARY | 2023-12-07 11:23 | XMS_ITS | Encounter Summary ---
Author Name Unknown Organization [facility] Address [address] [place] [address] Care Team Providers Care Loop Tender Name Role Phone Kylah Crum M.D. Primary Care Provider [phone] Reason for Visit * Outpatient (Routine) - Canceled Specialty Diagnoses / Procedures Referred By Sebas t Referred To Contact Anticoagulation Diagnoses Coronary Arterial Bypass Graft Status Post Personal History Cardiac Surgery Status Post Bypass Coronary Artery Graft Status Post Prosthesis Aortic Valve Kylah Crum M.D. [address] [place] [address] [facility] Referral ID Status Reason Start Date Expiration Date V isits Requested Visits Authorized [id number] Canceled 10/01/2023 09/30/2026 300 300 Encounter Details Date Type Department Care Team (Latest Contact Info) Description 10/26/2023 11:30 AM KITCHEN UTILITY ASSOCIATE Anticoagulation Visit Department of Anticoagulation in [place], [place] [address] [place] [address] Kylah Crum M.D. [address] [place] [address] Diabetes Mellitus Type 2 (HCC) (Primary Dx); Coronary Arterial Bypass Graft Status Post Personal History; Cardiac Surgery Status Post; Bypass Coronary Artery Graft Status Post; Prosthesis Aortic Valve; Lighting Adviser (Current) Anticoagulant Treatment; Monitoring For Therapeutic Drug [...] your living situation today? I have a [facility] place to live 08/29/2023 Sex and Gender Information Value Date Recorded Sex Assigned at Male 08/29/2023 11:06 AM CDT Gender Identity Male 08/29/2023 11:06 AM CDT Sexual Orientation Straight 08/29/2023 11 :06 AM CDT documented as of this encounter Patient Instructions * Patient Instructions* Crystal Goodson R.N. - 10/26/2023 11:30 AM KITCHEN UTILITY ASSOCIATE Your next INR will be 10/29/2023. You will need to call the Anticoagulation Program for warfarin dosing at the scheduled time for your nurse visit, as indicated on your Patient Appointment Guide (PAG). To reschedule your appointment or for questions about your warfarin, please call Primary Care Anticoagulation Program at [phone] from 7:30 am to 4:30 pm. Sunday-Sunday [...] if you start any herbal or other ebxk-umi-yixbxyc product (check with your doctor, a nurse, or pharmacist). If you change your diet significantly. If you decide to stop or start using tobacco or alcohol. If you notice unusual bruising or bleeding. If you notice dark, tarry, or bright red stools or blood in your urine. If you have a painful and swollen calf. HEN UTILITY ASSOCIATE documented in this encounter Progress Notes * [...] portal. Total time spent with patient: N/A HEN UTILITY ASSOCIATE documented in this encounter Plan of Treatment Upcoming Encounters Date Type Department Care Team (Latest Contact Info) Description 12/21/2023 10:15 AM KITCHEN UTILITY ASSOCIATE Clinical Communication Virtual Review in [address] [address] 12/24/2023 2:00 PM KITCHEN UTILITY ASSOCIATE Comprehensive Visit Department of Cardiovascular Medicine in [place], [place] [address] [place] [phone] Gduelia Soto M.D. [address] [place] [phone] 01/01/2024 3:45 PM KITCHEN UTILITY ASSOCIATE Comprehensive Visit Division of Hematology in [place], [place] [address] [place] [phone] Billy Segal APRN, C.N.P., D.N.P. [address] [place] [phone] documented as of this encounter Results * INR Reflex, POCT, Blood (10/29/2023 12:50 PM KITCHEN UTILITY ASSOCIATE) INR Reflex, POCT, B 2.7 10/29/2023 12:49 PM KITCHEN UTILITY ASSOCIATE [id number] Comment: ----ADDITIONAL INFORMATION---- Standard intensity warfarin therapeutic range: 2.0 to 3.0 ?? High intensity warfarin therapeutic range: 2.5 to 3.5 Blood (Blood, Capillary) 10/29/2023 12:50 PM KITCHEN UTILITY ASSOCIATE 10/29/2023 12:49 PM KITCHEN UTILITY ASSOCIATE Kylah Crum M.D. LAB POCT ORDERABLES - DEVICE Performing Organization Address City/State/[facility] Co de Phone Number [facility] [address] [place] [address], [facility] FB60 [facility] in [place] [address] [place] [address] documented in this encounter Visit Diagnoses Diagnosis Diabetes Mellitus Type 2 (HCC)- 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 History Cardiac Surgery Status Post Bypass Coronary Artery Graft Status Post Prosthesis Aortic Valve Lighting Adviser (Current) Anticoagulant Treatment Monitoring For Therapeutic Drug Therapy documented in this encounter Additional Health Concerns Assessment Noted Time PHQ-9 Depression Total Score: 1 09/10/20 23 2:06 PM CDT documented as of this encounter Care Teams Loop Tender Relationship Specialty Start Date End Date Kylah Crum M.D. [address] [place] [address] [place] [phone] PCP - General Family Medicine 09/28/23 documented as of this encounter
--- OUTSIDE RECORDS SUMMARY | 2023-12-07 11:23 | XMS_ITS | Encounter Summary ---
Author Name Unknown Organization [facility] Address [address] [place] [address] Care Team Providers Care Service Order Dispatcher Name Role Phone Kylah Crum M.D. Primary Care Provider [phone] Encounter Details Date Type Department Care Team (Latest Contact Info) Description 10/29/2023 12:42 PM NURSE LDR - 10/29/2023 11:59 PM NURSE LDR Hospital Encounter Department of Laboratory Medicine in [place], [place] [address] [place] [phone] Kylah Crum M.D. [address] [place] [phone] Coronary Arterial Bypass Graft Status Post Personal History; Cardiac Surgery Status Post; Bypass Coronary Artery Graft Status Post; Prosthesis Aortic Valve; Diabetes Mellitus Type 2 (HCC); Band And Cuff Cutter (Current) Anticoagulant Treatment; Monitoring For Therapeutic Drug [...] your living situation today? I have a [facility] place to live 08/29/2023 Sex [...] (Latest Contact Info) Description 12/21/2023 10:15 AM NURSE LDR Clinical Communication Virtual Review in [place], [place] [address] [place] [address] 12/24/2023 2:00 PM NURSE LDR Comprehensive Visit Department of Cardiovascular Medicine in [place], [place] [address] [place] [phone] Gudelia Soto M.D. [address] [place] [phone] 01/01/2024 3:45 PM NURSE LDR Comprehensive Visit Division of Hematology in [address] [phone] Billy Segal APRN, C.N.P., D.N.P. [address] [place] [address] documented as of this encounter Procedures Procedure Name Priority Date/Time Associated Diagnosis Comments INR REFLEX, POCT, B Routine 10/29/2023 12:50 PM NURSE LDR Coronary Arterial Bypass Graft Status Post Personal History Cardiac Surgery Status Post Bypass Coronary Artery Graft Status Post Prosthesis Aortic Valve Diabetes Mellitus Type 2 (HCC) Long-Term (Current) Anticoagulant Treatment Monitoring For Therapeutic Drug Therapy documented in this encounter Results * INR Reflex, POCT, Blood (10/29/2023 12:50 PM NURSE LDR) INR Reflex, POCT, B 2.7 10/29/2023 12:49 PM NURSE LDR [id number] Comment: ----ADDITIONAL INFORMATION---- Standard intensity warfarin therapeutic range: 2.0 to 3.0 ?? High intensity warfarin therapeutic range: 2.5 to 3.5 Blood (Blood, Capillary) 10/29/2023 12:50 PM NURSE LDR 10/29/2023 12:49 PM NURSE LDR Kylah Crum M.D. LAB POCT ORDERABLES - DEVICE [facility] [address] [place] [address], [facility] FB60 [facility] in [place] [address] [place] [address] documented in this encounter Visit Diagnoses Diagnosis Coronary Arterial Bypass Graft Status Post Personal History Cardiac Surgery Status Post Bypass Coronary Artery Graft Status Post Prosthesis Aortic Valve Diabetes Mellitus Type 2 (HCC) Long-Term (Current) Anticoagulant Treatment Monitoring For Therapeutic Drug Therapy documented in this encounter Additional Health Concerns Assessment Noted Time PHQ-9 Depression Total Score: 1 09/10/20 23 2:06 PM CDT documented as of this encounter Care Teams Service Order Dispatcher Relationship Specialty Start Date End Date Kylah Crum M.D. [address] [place] [phone] PCP - General Family Medicine 09/28/23 documented as of this encounter
--- OUTSIDE RECORDS SUMMARY | 2023-12-07 11:23 | XMS_ITS | Encounter Summary ---
Author Name Unknown Organization [facility] Address [address] [place] [address] Care Team Providers Care Stores Assistant Name Role Phone Kylah Crum M.D. Primary Care Provider [phone] Reason for Visit * Outpatient (Routine) - Canceled Specialty Diagnoses / Procedures Referred By Sebas t Referred To Contact Anticoagulation Diagnoses Coronary Arterial Bypass Graft Status Post Personal History Cardiac Surgery Status Post Bypass Coronary Artery Graft Status Post Prosthesis Aortic Valve Kylah Crum M.D. [address] [place] [address] [facility] Referral ID Status Reason Start Date Expiration Date V isits Requested Visits Authorized [id number] Canceled 10/01/2023 09/30/2026 300 300 Encounter Details Date Type Department Care Team (Latest Contact Info) Description 10/29/2023 4:10 PM POKER DEALER Anticoagulation Visit Department of Anticoagulation in [place], [place] [address] [place] [address] Kylah Crum M.D. [address] [place] [address] Diabetes Mellitus Type 2 (HCC) [...] your living situation today? I have a [facility] place to live 08/29/2023 Sex and Gender Information Value Date Recorded Sex Assigned at Male 08/29/2023 11:06 AM CDT Gender Identity Male 08/29/2023 11:06 AM CDT Sexual Orientation Straight 08/29/2023 11 :06 AM CDT documented as of this encounter Patient Instructions * Patient Instructions* Keli Anguiano R.N. - 10/29/2023 4:10 PM POKER DEALER Your next INR will be SundayNovember 02. You will need to call the Anticoagulation Program for warfarin dosing at the scheduled time for your nurse visit, as indicated on your Patient Appointment Guide (PAG). To reschedule your appointment or for questions about your warfarin, please call Primary Care Anticoagulation Program at [phone] from 7:30 am to 4:30 pm. Sunday-Sunday [...] if you start any herbal or other iwtb-ipy-dzelbur product (check with your doctor, a nurse, or pharmacist). If you change your diet significantly. If you decide to stop or start using tobacco or alcohol. If you notice unusual bruising or bleeding. If you notice dark, tarry, or bright red stools or blood in your urine. If you have a painful and swollen calf. R DEALER documented in this encounter Progress Notes * [...] Total time spent with patient: 15 minutes R DEALER documented in this encounter Plan of Treatment Upcoming Encounters Date Type Department Care Team (Latest Contact Info) Description 12/21/2023 10:15 AM POKER DEALER Clinical Communication Virtual Review in [address] [phone] 12/24/2023 2:00 PM POKER DEALER Comprehensive Visit Department of Cardiovascular Medicine in [place], [place] [address] [place] [address] Gudelia Soto M.D. [address] [place] [address] 01/01/2024 3:45 PM POKER DEALER Comprehensive Visit Division of Hematology in [place], [place] [address] [place] [phone] Billy Segal APRN, C.N.P., D.N.P. [address] [place] [phone] documented as of this encounter Results * INR Reflex, POCT, Blood (11/02/2023 12:42 PM POKER DEALER) INR Reflex, POCT, B 3.6 11/02/2023 12:41 PM POKER DEALER [id number] Comment: ----ADDITIONAL INFORMATION---- Standard intensity warfarin therapeutic range: 2.0 to 3.0 ?? High intensity warfarin therapeutic range: 2.5 to 3.5 Blood (Blood, Capillary) 11/02/2023 12:42 PM POKER DEALER 11/02/2023 12:41 PM POKER DEALER Kylah Crum M.D. LAB POCT ORDERABLES - DEVICE Performing Organization Address City/State/[facility] Co de Phone Number [facility] [address] [place] [address], [facility] FB60 [facility] [place] in [place] [address] [place] [address] documented in this encounter Visit Diagnoses Diagnosis Diabetes Mellitus Type 2 (HCC)- 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 History Cardiac Surgery Status Post Bypass Coronary Artery Graft Status Post Prosthesis Aortic Valve Mcfp (Current) Anticoagulant Treatment Monitoring For Therapeutic Drug Therapy documented in this encounter Additional Health Concerns Assessment Noted Time PHQ-9 Depression Total Score: 1 09/10/20 23 2:06 PM CDT documented as of this encounter Care Teams Stores Assistant Relationship Specialty Start Date End Date Kylah Crum M.D. [address] [place] [address] [place] [phone] PCP - General Family Medicine 09/28/23 documented as of this encounter
--- OUTSIDE RECORDS SUMMARY | 2023-12-07 11:23 | XMS_ITS | Encounter Summary ---
Author Name Unknown Organization [facility] Address [address] [place] [address] Care Team Providers Care Culinary Director Name Role Phone Kylah Crum M.D. Primary Care Provider Encounter Details Date Type Department Care Team (Late st Contact Info) Description 10/15/2023 Episode Changes Department of Cardiovascular Medicine in [place], [place] [address] [place] [address] Cony Calzada, CEP [address] [place] [address] Social History Tobacco Use Types Packs/Day Years [...] (Latest Contact Info) Description 12/21/2023 10:15 AM TAPING FOREMAN Clinical Communication Virtual Review in [place], [place] 200 [place] [address] 12/24/2023 2:00 PM TAPING FOREMAN Comprehensive Visit Department of Cardiovascular Medicine in [place], [place] [address] [place] [phone] Gudelia Soto M.D. [address] [place] [phone] 01/01/2024 3:45 PM TAPING FOREMAN Comprehensive Visit Division of Hematology in [place], [place] [address] [place] [phone] Billy Segal APRN, C.N.P., D.N.P. [address] [place] [address] documented as of this encounter Visit Diagnoses Not on filedocumented in this encounter Additional Health Concerns Assessment Noted Time PHQ-9 Depression Total Score: 1 09/10/20 23 2:06 PM CDT documented as of this encounter Care Teams Culinary Director Relationship Specialty Start Date End Date Kylah Crum M.D. [address] [place] [phone] PCP - General Family Medicine 09/28/23 documented as of this encounter
--- OUTSIDE RECORDS SUMMARY | 2023-12-07 11:23 | XMS_ITS | Encounter Summary ---
Author Name Unknown Organization [facility] Address [address] [place] [address] Care Team Providers Care Equipment Records Supervisor Name Role Phone Kylah Crum M.D. Primary Care Provider [phone] Reason for Visit * Outpatient (Routine) - Canceled Specialty Diagnoses / Procedures Referred By Sebas t Referred To Contact Anticoagulation Diagnoses Coronary Arterial Bypass Graft Status Post Personal History Cardiac Surgery Status Post Bypass Coronary Artery Graft Status Post Prosthesis Aortic Valve Kylah Crmu M.D. [address] [place] [address] [facility] Referral ID Status Reason Start Date Expiration Date V isits Requested Visits Authorized [id number] Canceled 10/01/2023 09/30/2026 300 300 Encounter Details Date Type Department Care Team (Latest Contact Info) Description 10/22/2023 2:00 PM EDUCATION DEPARTMENT REGISTRAR Anticoagulation Visit Department of Anticoagulation in [place], [place] [address] [place] [address] Kylah Crum M.D. [address] [place] [address] Prosthesis Aortic Valve (Primary Dx); Coronary Arterial Bypass Graft Status Post Personal History; Cardiac Surgery Status Post; Bypass Coronary Artery Graft Status Post; Usp (Current) Anticoagulant Treatment; Monitoring For Therapeutic Drug [...] living situation today? I have a [facility] place to live 08/29/2023 Sex and Gender Information Value Date Recorded Sex Assigned at Male 08/29/2023 11:06 AM CDT Gender Identity Male 08/29/2023 11:06 AM CDT Sexual Orientation Straight 08/29/2023 11 :06 AM CDT documented as of this encounter Patient Instructions * Patient Instructions* Treva Chavarria R.N. - 10/22/2023 2:00 PM EDUCATION DEPARTMENT REGISTRAR Your next INR will be Sunday: 10-26-2023. You will need to call the Anticoagulation Program for warfarin dosing at the scheduled time for your nurse visit, as indicated on your Patient Appointment Guide (PAG). To reschedule your appointment or for questions about your warfarin, please call Primary Care Anticoagulation Program at [phone] from 7:30 am to 4:30 pm. Sunday-Sunday [...] if you start any herbal or other cbnv-adh-cjxbhbk product (check with your doctor, a nurse, or pharmacist). If you change your diet significantly. If you decide to stop or start using tobacco or alcohol. If you notice unusual bruising or bleeding. If you notice dark, tarry, or bright red stools or blood in your urine. If you have a painful and swollen calf. ATION DEPARTMENT REGISTRAR documented in this encounter Progress Notes * [...] indicated above stating consult required. Consulted Anticoagulation [facility] for plan. Currently bridging: no. INR is [...] time. Total time spent with patient: N/A ATION DEPARTMENT REGISTRAR documented in this encounter Plan of Treatment Upcoming Encounters Date Type Department Care Team (Latest Contact Info) Description 12/21/2023 10:15 AM EDUCATION DEPARTMENT REGISTRAR Clinical Communication Virtual Review in [place], [place] [address] [place] [address] 12/24/2023 2:00 PM EDUCATION DEPARTMENT REGISTRAR Comprehensive Visit Department of Cardiovascular Medicine in [place], [place] [address] [place] [phone] Gudelia Soto M.D. [address] [place] [phone] 01/01/2024 3:45 PM EDUCATION DEPARTMENT REGISTRAR Comprehensive Visit Division of Hematology in [place], [place] [address] [place] [phone] Billy Segal APRN, C.N.P., D.N.P. [address] [place] [phone] documented as of this encounter Results * INR Reflex, POCT, Blood (10/26/2023 11:36 AM EDUCATION DEPARTMENT REGISTRAR) INR Reflex, POCT, B 3.2 10/26/2023 11:35 AM EDUCATION DEPARTMENT REGISTRAR [id number] Comment: ----ADDITIONAL INFORMATION---- Standard intensity warfarin therapeutic range: 2.0 to 3.0 ?? High intensity warfarin therapeutic range: 2.5 to 3.5 Blood (Blood, Capillary) 10/26/2023 11:36 AM EDUCATION DEPARTMENT REGISTRAR 10/26/2023 11:35 AM EDUCATION DEPARTMENT REGISTRAR Kylah Crum M.D. LAB POCT ORDERABLES - DEVICE [facility] [address] [place] [address], [facility] FB60 [facility] in [place] [address] [place] [address] documented in this encounter Visit Diagnoses Diagnosis Prosthesis Aortic Valve- 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 History Cardiac Surgery Status Post Bypass Coronary Artery Graft Status Post Usp (Current) Anticoagulant Treatment Monitoring For Therapeutic Drug Therapy Diabetes Mellitus Type 2 (HCC) documented in this encounter Additional Health Concerns Assessment Noted Time PHQ-9 Depression Total Score: 1 09/10/20 2:06 PM CDT documented as of this encounter Care Teams Equipment Records Supervisor Relationship Specialty Start Date End Date Kylah Crum M.D. [address] [place] [phone] PCP - General Family Medicine 09/28/23 documented as of this encounter
--- OUTSIDE RECORDS SUMMARY | 2023-12-07 11:24 | XMS_ITS | Encounter Summary ---
Author Name Unknown Organization [facility] Address [address] [place] [address] Care Team Providers Care Canvassing Manager Name Role Phone Kylah Crum M.D. Primary Care Provider [phone] Reason for Visit * Outpatient (Routine) - Closed Specialty Diagnoses / Procedures Referred By Sebas gimenez Referred To Contact Cardiovascular Surgery Diagnoses Coronary Arterial Bypass Graft Status Post Personal History Prosthesis Aortic Valve Coronary Artery Disease Without Angina Pectoris Laila Basurto P.A.-CJarrett [address] [place] [phone] [facility] Referral ID Status Reason Start Date Expiration Date Visits Re quested Visits Authorized [id number] Closed 09/24/2023 09/23/2026 1 1 Encounter Details Date Type Department Care Team (Late st Contact Info) Description 10/03/2023 1:30 PM [facility] Telemedicine Department of Cardiovascular Surgery in [place], [place] [address] [place] [phone] Laila Basurto P.AJarrett-C. [address] [place] [phone] Mariama Monk, MANAGER FINANCIAL, C.N.P. [address] [place] [phone] Cardiac Surgery Status Post (Primary Dx); Bypass [...] your living situation today? I have a [facility] place to live 08/29/2023 Sex and Gender Information Value Date Recorded Sex Assigned at Male 08/29/2023 11:06 AM CDT Gender Identity Male 08/29/2023 11:06 AM CDT Sexual Orientation Straight 08/29/2023 11 :06 AM CDT documented as of this encounter Progress Notes * Mariama Monk APRN, C.N.P. - 10/03/2023 1:30 PM CST Jong Harris : 1950 Visit Date: 10/03/23 [id number]-FACE VISIT Consult conducted via real-time audio/video technology by Mariama Monk APRN, C.N.P. in [facility] to the patient in Patient's Home SUBJECTIVE [...] care of the patient today. Time includes wwr-tkuv-ys-face patient care and review of records. Mariama Monk APRN, C.N.P. MING PROFESSOR documented in this encounter Plan of Treatment Upcoming Encounters Date Type Department Care Team (Latest Contact Info) Description 12/21/2023 10:15 AM SWIMMING PROFESSOR Clinical Communication Virtual Review in [place], [place] 200 [place] [address] 12/24/2023 2:00 PM SWIMMING PROFESSOR Comprehensive Visit Department of Cardiovascular Medicine in [place], [place] [address] [place] [phone] Gudelia Soto M.D. [address] [place] [phone] 01/01/2024 3:45 PM SWIMMING PROFESSOR Comprehensive Visit Division of Hematology in [address] [phone] Billy Segal APRN, C.N.P., D.N.P. [address] [place] [phone] documented as of this encounter Visit Diagnoses Diagnosis Cardiac Surgery Status Post- Primary Bypass Coronary Artery Graft Status Post Prosthesis Aortic Valve Coronary Arterial Bypass Graft Status Post Personal History Coronary Artery Disease Without Angina Pectoris documented in this encounter Additional Health Concerns Assessment Noted Time PHQ-9 Depression Total Score: 1 09/10/20 2:06 PM CDT documented as of this encounter Care Teams Canvassing Manager Relationship Specialty Start Date End Date Kylah Crum M.D. [address] [place] [phone] PCP - General Family Medicine 09/28/23 documented as of this encounter
--- OUTSIDE RECORDS SUMMARY | 2023-12-07 11:24 | XMS_ITS | Encounter Summary ---
Author Name Unknown Organization [facility] Address [address] [place] [address] Care Team Providers Care Fuel Buyer Name Role Phone Kylah Crum M.D. Primary Care Provider [phone] Reason for Visit * Reason Onset Date Comments Results 10/02/2023 Encounter Details Date Type Department Care Team (Late st Contact Info) Description 10/02/2023 Clinical Communication Department of Family Medicine, [facility], in [place], [place] [address] [place] [phone] Kylah Crum M.D. 300 [place] [phone] Results Social History Tobacco Use [...] your living situation today? I have a [facility] place to live 08/29/2023 Sex and Gender Information Value Date Recorded Sex Assigned at Male 08/29/2023 11:06 AM CDT Gender Identity Male 08/29/2023 11:06 AM CDT Sexual Orientation Straight 08/29/2023 11 :06 AM CDT documented as of this encounter Miscellaneous Notes * Telephone Encounter - Katya Brito, L.P.N. - 10/02/2023 9:13 AM CREW MANAGER Left message for patient to return call to clinic. Does the patient need to speak to nursing? yes Action needed: ----- Message from Kylah Crum M.D. sent at 10/01/2023 4:54 PM CREW MANAGER ----- Kidney function test is stable. MANAGER * Telephone Encounter - Katya Brito LJarrettPJarrettN. - 10/02/2023 9:13 AM CREW MANAGER ----- Message from Kylah Crum M.D. sent at 10/01/2023 4:54 PM CREW MANAGER ----- Kidney function test is stable. MANAGER documented in this encounter Plan of Treatment Upcoming Encounters Date Type Department Care Team (Latest Contact Info) Description 12/21/2023 10:15 AM CREW MANAGER Clinical Communication Virtual Review in [place], [place] 200 [place] [address] 12/24/2023 2:00 PM CREW MANAGER Comprehensive Visit Department of Cardiovascular Medicine in [place], [place] [address] [place] [phone] Gudelia Soto M.D. [address] [place] [phone] 01/01/2024 3:45 PM CREW MANAGER Comprehensive Visit Division of Hematology in [address] [phone] Billy Segal APRN, C.N.P., D.N.P. [address] [place] [phone] documented as of this encounter Visit Diagnoses Not on filedocumented in this encounter Additional Health Concerns Assessment Noted Time PHQ-9 Depression Total Score: 1 09/10/20 2:06 PM CDT documented as of this encounter Care Teams Fuel Buyer Relationship Specialty Start Date End Date Kylah Crum M.D. [address] [place] [phone] PCP - General Family Medicine 09/28/23 documented as of this encounter
--- OUTSIDE RECORDS SUMMARY | 2023-12-07 11:24 | XMS_ITS | Encounter Summary ---
Author Name Unknown Organization [facility] Address [address] [place] [address] Care Team Providers Care Welding Machine Operator Friction Name Role Phone Kylah Crum M.D. Primary Care Provider [phone] Reason for Visit * Outpatient (Routine) - Canceled Specialty Diagnoses / Procedures Referred By Sebas t Referred To Contact Anticoagulation Diagnoses Coronary Arterial Bypass Graft Status Post Personal History Cardiac Surgery Status Post Bypass Coronary Artery Graft Status Post Prosthesis Aortic Valve Kylah Crum M.D. [address] [place] [phone] [facility] Referral ID Status Reason Start Date Expiration Date V isits Requested Visits Authorized [id number] Canceled 10/01/2023 09/30/2026 300 300 Encounter Details Date Type Department Care Team (Latest Contact Info) Description 10/05/2023 11:00 AM VAT HOUSE LABORER Anticoagulation Visit Department of Anticoagulation in [place], [place] [address] [place] [phone] Kylah Crum M.D. [address] [place] [phone] Skilled Nursing (Current) Anticoagulant Treatment (Primary Dx); [...] your living situation today? I have a [facility] place to live 08/29/2023 Sex and Gender Information Value Date Recorded Sex Assigned at Male 08/29/2023 11:06 AM CDT Gender Identity Male 08/29/2023 11:06 AM CDT Sexual Orientation Straight 08/29/2023 11 :06 AM CDT documented as of this encounter Patient Instructions * Patient Instructions* Tatiana Chen R.N. - 10/05/2023 11:00 AM VAT HOUSE LABORER Your next INR will be 10/08/23. You will need to call the Anticoagulation Program for warfarin dosing at the scheduled time for your nurse visit, as indicated on your Patient Appointment Guide (PAG). To reschedule your appointment or for questions about your warfarin, please call Primary Care Anticoagulation Program at [phone] from 7:30 am to 4:30 pm. Sunday-Sunday [...] if you start any herbal or other wdae-xra-gxwpgld product (check with your doctor, a nurse, or pharmacist). If you change your diet significantly. If you decide to stop or start using tobacco or alcohol. If you notice unusual bruising or bleeding. If you notice dark, tarry, or bright red stools or blood in your urine. If you have a painful and swollen calf. HOUSE LABORER documented in this encounter Progress Notes * [...] above stating consult required. Consulted Anticoagulation [facility] for plan. Currently bridging: no. INR is subtherapeutic, reviewed need for bridging with provider. Bridging ordered? No Additional dosing or follow-up information: Next INR in 4 days per consult with Anticoagulation RPwilma consulted: Lois Gomez-Anticoagulation [facility] Pt is on injectable anticoagulant: No. [...] questions. Total time spent with patient: N/A HOUSE LABORER documented in this encounter Plan of Treatment Upcoming Encounters Date Type Department Care Team (Latest Contact Info) Description 12/21/2023 10:15 AM VAT HOUSE LABORER Clinical Communication Virtual Review in [place], [place] 200 [place] [address] 12/24/2023 2:00 PM VAT HOUSE LABORER Comprehensive Visit Department of Cardiovascular Medicine in [address] [phone] Gudelia Soto M.D. [address] [place] [phone] 01/01/2024 3:45 PM VAT HOUSE LABORER Comprehensive Visit Division of Hematology in [address] [phone] Billy Segal APRN, C.N.P., D.N.P. [address] [place] [phone] documented as of this encounter Results * INR Reflex, POCT, Blood (10/08/2023 12:52 PM VAT HOUSE LABORER) INR Reflex, POCT, B 1.8 10/08/2023 12:51 PM VAT HOUSE LABORER [id number] Comment: ----ADDITIONAL INFORMATION---- Standard intensity warfarin therapeutic range: 2.0 to 3.0 ?? High intensity warfarin therapeutic range: 2.5 to 3.5 Blood (Blood, Capillary) 10/08/2023 12:52 PM VAT HOUSE LABORER 10/08/2023 12:51 PM VAT HOUSE LABORER Kylah Crum M.D. LAB POCT ORDERABLES - DEVICE [facility] [address] [facility] [place] [address], [facility] FB60 [facility] in [place] [address] [facility] [place] [address] documented in this encounter Visit Diagnoses Diagnosis Inside Sales Assistant (Current) Anticoagulant Treatment- 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 History Cardiac Surgery Status Post Bypass Coronary Artery Graft Status Post Prosthesis Aortic Valve Monitoring For Therapeutic Drug Therapy documented in this encounter Additional Health Concerns Assessment Noted Time PHQ-9 Depression Total Score: 1 09/10/20 23 2:06 PM CDT documented as of this encounter Care Teams Welding Machine Operator Friction Relationship Specialty Start Date End Date Kylah Crum M.D. [address] [facility] [place] [phone] PCP - General Family Medicine 09/28/23 documented as of this encounter
--- OUTSIDE RECORDS SUMMARY | 2023-12-07 11:24 | XMS_ITS | Encounter Summary ---
Author Name Unknown Organization [facility] Address [address] [place] [address] Care Team Providers Care Securities Consultant Name Role Phone Kylah Crum M.D. Primary Care Provider Encounter Details Date Type Department Care Team (Latest Contact Info) Description 10/12/2023 10:50 AM CARGO SERVICE AGENT - 10/12/2023 11:59 PM [facility] Hospital Encounter Department of Laboratory Medicine in [place], [place] 300 [place] [phone] Kylah Crum M.D. [address] [place] [phone] Coronary Arterial Bypass Graft Status Post Personal [...] your living situation today? I have a [facility] place to live 08/29/2023 Sex and [...] (Latest Contact Info) Description 12/21/2023 10:15 AM CARGO SERVICE AGENT Clinical Communication Virtual Review in [place], [place] [address] [place] [address] 12/24/2023 2:00 PM CARGO SERVICE AGENT Comprehensive Visit Department of Cardiovascular Medicine in [place], [place] [address] [place] [address] Gudelia Soto M.D. [address] [place] [phone] 01/01/2024 3:45 PM CARGO SERVICE AGENT Comprehensive Visit Division of Hematology in [place], [place] [address] [place] [phone] Billy Segal APRN, C.N.P., D.N.P. [address] [place] [phone] documented as of this encounter Procedures Procedure Name Priority Date/Time Associated Diagnosis Comments INR REFLEX, POCT, B Routine 10/12/2023 11:03 AM CARGO SERVICE AGENT Coronary Arterial Bypass Graft Status Post Personal History Cardiac Surgery Status Post Bypass Coronary Artery Graft Status Post Prosthesis Aortic Valve [facility] (Current) Anticoagulant Treatment Monitoring For Therapeutic Drug Therapy documented in this encounter Results * INR Reflex, POCT, Blood (10/12/2023 11:03 AM CARGO SERVICE AGENT) INR Reflex, POCT, B 2.5 10/12/2023 11:02 AM CARGO SERVICE AGENT [id number] Comment: ----ADDITIONAL INFORMATION---- Standard intensity warfarin therapeutic range: 2.0 to 3.0 ?? High intensity warfarin therapeutic range: 2.5 to 3.5 Blood (Blood, Capillary) 10/12/2023 11:03 AM CARGO SERVICE AGENT 10/12/2023 11:02 AM CARGO SERVICE AGENT Kylah Crum M.D. LAB POCT ORDERABLES - DEVICE [facility] [address] [place] [address], [place] FB60 [facility] [place] in [place] [address] [place] [address] documented in this encounter Visit Diagnoses Diagnosis Coronary Arterial Bypass Graft Status Post Personal History Cardiac Surgery Status Post Bypass Coronary Artery Graft Status Post Prosthesis Aortic Valve Yarn Texture Machine Operator (Current) Anticoagulant Treatment Monitoring For Therapeutic Drug Therapy documented in this encounter Additional Health Concerns Assessment Noted Time PHQ-9 Depression Total Score: 1 09/10/20 2:06 PM CDT documented as of this encounter Care Teams Securities Consultant Relationship Specialty Start Date End Date Kylah Crum M.D. [address] [place] [phone] PCP - General Family Medicine 09/28/23 documented as of this encounter
--- OUTSIDE RECORDS SUMMARY | 2023-12-07 11:24 | XMS_ITS | Encounter Summary ---
Author Name Unknown Organization [facility] Address [address] [place] [address] Care Team Providers Care Bods Developer Name Role Phone Kylah Crum M.D. Primary Care Provider [phone] Reason for Visit * Outpatient (Routine) - Closed Specialty Diagnoses / Procedures Referred By Sebas gimenez Referred To Contact Nephrology and Hypertension Diagnoses Chronic Kidney Disease Stage 4 Glomerular Filtration Rate 15-29 (HCC) Procedures Nephrology - Chronic renal failure eConsult Kylah Crum M.D. [address] [place] [phone] [facility] Referral ID Status Reason Start Date Expiration Date Visits Re quested Visits Authorized [id number] Closed 10/01/2023 09/30/2024 1 1 Encounter Details Date Type Department Care Team (Latest Contact Info) Description 10/02/2023 4:45 PM SENIOR PRODUCT DEVELOPMENT ENGINEER Internal E-Consult Division of Nephrology and Hypertension in [place], [place] [address] [place] [phone] Pavan May M.D. [address] [place] [phone] Elevated Creatinine (Primary Dx); Failure Renal Acute [...] your living situation today? I have a [facility] place to live 08/29/2023 Sex and [...] for GFR. Avoid nephrotoxins. Abiola May M.D. OR PRODUCT DEVELOPMENT ENGINEER documented in this encounter Plan of Treatment Upcoming Encounters Date Type Department Care Team (Latest Contact Info) Description 12/21/2023 10:15 AM SENIOR PRODUCT DEVELOPMENT ENGINEER Clinical Communication Virtual Review in [place], [place] 200 [place] [address] 12/24/2023 2:00 PM SENIOR PRODUCT DEVELOPMENT ENGINEER Comprehensive Visit Department of Cardiovascular Medicine in [place], [place] [address] [place] [phone] Gudelia Soto M.D. [address] [place] [phone] 01/01/2024 3:45 PM SENIOR PRODUCT DEVELOPMENT ENGINEER Comprehensive Visit Division of Hematology in [address] [phone] Billy Segal APRN, C.N.P., D.N.P. [address] [place] [phone] documented as of this encounter Visit Diagnoses Diagnosis Elevated Creatinine- Primary Failure Renal Acute (Acute Kidney Injury) (HCC) documented in this encounter Additional Health Concerns Assessment Noted Time PHQ-9 Depression Total Score: 1 09/10/20 2:06 PM CDT documented as of this encounter Care Teams Bods Developer Relationship Specialty Start Date End Date Kylah Crum M.D. [address] [place] [phone] PCP - General Family Medicine 09/28/23 documented as of this encounter
--- OUTSIDE RECORDS SUMMARY | 2023-12-07 11:24 | XMS_ITS | Encounter Summary ---
Author Name Unknown Organization [facility] Address [address] [place] [address] Care Team Providers Care Wire Machine Cutter Name Role Phone Kylah Crum M.D. Primary Care Provider [phone] Reason for Visit * Outpatient (Routine) - Canceled Specialty Diagnoses / Procedures Referred By Sebas t Referred To Contact Anticoagulation Diagnoses Coronary Arterial Bypass Graft Status Post Personal History Cardiac Surgery Status Post Bypass Coronary Artery Graft Status Post Prosthesis Aortic Valve Kylah Crum M.D. [address] [place] [address] [facility] Referral ID Status Reason Start Date Expiration Date V isits Requested Visits Authorized [id number] Canceled 10/01/2023 09/30/2026 300 300 Encounter Details Date Type Department Care Team (Latest Contact Info) Description 10/12/2023 11:30 AM UNDERWRITING MANAGER Anticoagulation Visit Department of Anticoagulation in [place], [place] [address] [place] [address] Kylah Crum M.D. [address] [place] [address] Half-Way (Current) Anticoagulant Treatment (Primary Dx); Coronary Arterial [...] living situation today? I have a [facility] place to live 08/29/2023 Sex and Gender Information Value Date Recorded Sex Assigned at Male 08/29/2023 11:06 AM CDT Gender Identity Male 08/29/2023 11:06 AM CDT Sexual Orientation Straight 08/29/2023 11 :06 AM CDT documented as of this encounter Patient Instructions * Patient Instructions* Caitlin Ospina R.N. - 10/12/2023 11:30 AM UNDERWRITING MANAGER Your next INR will be 10/17/23. You will need to call the Anticoagulation Program for warfarin dosing at the scheduled time for your nurse visit, as indicated on your Patient Appointment Guide (PAG). To reschedule your appointment or for questions about your warfarin, please call Primary Care Anticoagulation Program at [phone] from 7:30 am to 4:30 pm. Sunday-Sunday [...] if you start any herbal or other voko-ful-[id number] product (check with your doctor, a nurse, or pharmacist). If you change your diet significantly. If you decide to stop or start using tobacco or alcohol. If you notice unusual bruising or bleeding. If you notice dark, tarry, or bright red stools or blood in your urine. If you have a painful and swollen calf. RWRITING MANAGER documented in this encounter Progress Notes * [...] indicated above stating consult required. Consulted Anticoagulation [facility] for plan. Currently bridging: no. INR is therapeutic/supratherapeutic. Additional dosing or follow-up information: None. Pt is on injectable anticoagulant: No. Plan used: Consult. See Anticoagulation Track Calendar for dosing and plan details. Anticoagulation Visit Summary: Patient repeats back dosing instructions, date of next INR, and has no further questions at this time. Total time spent with patient: N/A RWRITING MANAGER documented in this encounter Plan of Treatment Upcoming Encounters Date Type Department Care Team (Latest Contact Info) Description 12/21/2023 10:15 AM UNDERWRITING MANAGER Clinical Communication Virtual Review in [place] [address] [place] [address] 12/24/2023 2:00 PM UNDERWRITING MANAGER Comprehensive Visit Department of Cardiovascular Medicine in [place], [place] [address] [place] [phone] Gudelia Soto M.D. [address] [place] [phone] 01/01/2024 3:45 PM UNDERWRITING MANAGER Comprehensive Visit Division of Hematology in [place], [place] [address] [place] [phone] Billy Segal APRN, C.N.P., D.N.P. [address] [place] [phone] documented as of this encounter Results * INR Reflex, POCT, Blood (10/17/2023 11:22 AM UNDERWRITING MANAGER) INR Reflex, POCT, B 4.2 10/17/2023 11:21 AM UNDERWRITING MANAGER [id number] Comment: ----ADDITIONAL INFORMATION---- Standard intensity warfarin therapeutic range: 2.0 to 3.0 ?? High intensity warfarin therapeutic range: 2.5 to 3.5 Blood (Blood, Capillary) 10/17/2023 11:22 AM UNDERWRITING MANAGER 10/17/2023 11:21 AM UNDERWRITING MANAGER Kylah Crum M.D. LAB POCT ORDERABLES - DEVICE Performing Organization Address City/State/[facility] Co de Phone Number [facility] [address] [place] [address], [facility] FB60 [facility] in [place] [address] [place] [address] documented in this encounter Visit Diagnoses Diagnosis Half-Way (Current) Anticoagulant Treatment- 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 History Cardiac Surgery Status Post Bypass Coronary Artery Graft Status Post Prosthesis Aortic Valve Monitoring For Therapeutic Drug Therapy documented in this encounter Additional Health Concerns Assessment Noted Time PHQ-9 Depression Total Score: 1 09/10/20 23 2:06 PM CDT documented as of this encounter Care Teams Wire Machine Cutter Relationship Specialty Start Date End Date Kylah Crum M.D. [address] [place] [address] [place] [phone] PCP - General Family Medicine 09/28/23 documented as of this encounter
--- OUTSIDE RECORDS SUMMARY | 2023-12-07 11:24 | XMS_ITS | Encounter Summary ---
Author Name Unknown Organization [facility] Address [address] [place] [address] Care Team Providers Care Bench Worker Name Role Phone Kylah Crum M.D. Primary Care Provider [phone] Encounter Details Date Type Department Care Team (Latest Contact Info) Description 10/05/2023 10:20 AM GROWTH HACKER - 10/05/2023 11:59 PM [facility] Hospital Encounter Department of Laboratory Medicine in [place], [place] [address] [place] [phone] Kylah Crum M.D. [address] [place] [phone] Coronary Arterial Bypass Graft Status Post Personal [...] your living situation today? I have a [facility] place to live 08/29/2023 Sex and [...] (Latest Contact Info) Description 12/21/2023 10:15 AM GROWTH HACKER Clinical Communication Virtual Review in [place], [place] [address] [place] [address] 12/24/2023 2:00 PM GROWTH HACKER Comprehensive Visit Department of Cardiovascular Medicine in [place], [place] [address] [place] [address] Gudelia Soto M.D. [address] [place] [phone] 01/01/2024 3:45 PM GROWTH HACKER Comprehensive Visit Division of Hematology in [place], [place] [address] [place] [phone] Billy Segal APRN, C.N.P., D.N.P. [address] [place] [phone] documented as of this encounter Procedures Procedure Name Priority Date/Time Associated Diagnosis Comments INR REFLEX, POCT, B Routine 10/05/2023 10:35 AM GROWTH HACKER Coronary Arterial Bypass Graft Status Post Personal History Cardiac Surgery Status Post Bypass Coronary Artery Graft Status Post Prosthesis Aortic Valve Skilled Nursing (Current) Anticoagulant Treatment Monitoring For Therapeutic Drug Therapy documented in this encounter Results * INR Reflex, POCT, Blood (10/05/2023 10:35 AM GROWTH HACKER) INR Reflex, POCT, B 1.7 10/05/2023 10:35 AM GROWTH HACKER [id number] Comment: ----ADDITIONAL INFORMATION---- Standard intensity warfarin therapeutic range: 2.0 to 3.0 ?? High intensity warfarin therapeutic range: 2.5 to 3.5 Blood (Blood, Capillary) 10/05/2023 10:35 AM GROWTH HACKER 10/05/2023 10:35 AM GROWTH HACKER Kylah Crum M.D. LAB POCT ORDERABLES - DEVICE [facility] [address] [place] [address], [place] FB60 [facility] in [place] [address] [place] [address] documented in this encounter Visit Diagnoses Diagnosis [...] documented as of this encounter Care Teams Bench Worker Relationship Specialty Start Date End Date Kylah Crum M.D. [address] [place] [address] [place] [phone] PCP - General Family Medicine 09/28/23 documented as of this encounter
--- OUTSIDE RECORDS SUMMARY | 2023-12-07 11:24 | XMS_ITS | Encounter Summary ---
Author Name Unknown Organization [facility] Address [address] [place] [address] Care Team Providers Care Ceo Na Name Role Phone Kylah Crum M.D. Primary Care Provider [phone] Encounter Details Date Type Department Care Team (Latest Contact Info) Description 10/08/2023 12:36 PM MARKER SHIPMENTS - 10/08/2023 11:59 PM MARKER SHIPMENTS Hospital Encounter Department of Laboratory Medicine in [place], [place] [address] [place] [phone] Kylah Crum M.D. [address] [place] [phone] Coronary Arterial Bypass Graft Status Post Personal History; Cardiac Surgery Status Post; Bypass Coronary Artery Graft Status Post; Prosthesis Aortic Valve; Correction (Current) Anticoagulant Treatment; Monitoring For Therapeutic Drug [...] your living situation today? I have a [facility] place to live 08/29/2023 Sex [...] (Latest Contact Info) Description 12/21/2023 10:15 AM MARKER SHIPMENTS Clinical Communication Virtual Review in [place], [place] [address] [place] [address] 12/24/2023 2:00 PM MARKER SHIPMENTS Comprehensive Visit Department of Cardiovascular Medicine in [place], [place] [address] [place] [address] Gudelia Soto M.D. [address] [place] [phone] 01/01/2024 3:45 PM MARKER SHIPMENTS Comprehensive Visit Division of Hematology in [place], [place] [address] [place] [phone] Billy Segal APRN, C.N.P., D.N.P. [address] [place] [phone] documented as of this encounter Procedures Procedure Name Priority Date/Time Associated Diagnosis Comments INR REFLEX, POCT, B Routine 10/08/2023 12:52 PM MARKER SHIPMENTS Coronary Arterial Bypass Graft Status Post Personal History Cardiac Surgery Status Post Bypass Coronary Artery Graft Status Post Prosthesis Aortic Valve Correction (Current) Anticoagulant Treatment Monitoring For Therapeutic Drug Therapy documented in this encounter Results * INR Reflex, POCT, Blood (10/08/2023 12:52 PM MARKER SHIPMENTS) INR Reflex, POCT, B 1.8 10/08/2023 12:51 PM MARKER SHIPMENTS [id number] Comment: ----ADDITIONAL INFORMATION---- Standard intensity warfarin therapeutic range: 2.0 to 3.0 ?? High intensity warfarin therapeutic range: 2.5 to 3.5 Blood (Blood, Capillary) 10/08/2023 12:52 PM MARKER SHIPMENTS 10/08/2023 12:51 PM MARKER SHIPMENTS Kylah Crum M.D. LAB POCT ORDERABLES - DEVICE [facility] [address] [place] [address], [place] FB60 [facility] in [place] [address] [place] [address] documented in this encounter Visit Diagnoses Diagnosis Coronary Arterial Bypass Graft Status Post Personal History Cardiac Surgery Status Post Bypass Coronary Artery Graft Status Post Prosthesis Aortic Valve Correction (Current) Anticoagulant Treatment Monitoring For Therapeutic Drug Therapy documented in this encounter Additional Health Concerns Assessment Noted Time PHQ-9 Depression Total Score: 1 09/10/20 2:06 PM CDT documented as of this encounter Care Teams Ceo Na Relationship Specialty Start Date End Date Kylah Crum M.D. [address] [place] [address] [place] [phone] PCP - General Family Medicine 09/28/23 documented as of this encounter
--- OUTSIDE RECORDS SUMMARY | 2023-12-07 11:24 | XMS_ITS | Encounter Summary ---
Author Name Unknown Organization [facility] Address [address] [place] [address] Care Team Providers Care Hydroponics Grower Name Role Phone Kylah Crum M.D. Primary Care Provider [phone] Reason for Visit * Outpatient (Routine) - Canceled Specialty Diagnoses / Procedures Referred By Sebas t Referred To Contact Anticoagulation Diagnoses Coronary Arterial Bypass Graft Status Post Personal History Cardiac Surgery Status Post Bypass Coronary Artery Graft Status Post Prosthesis Aortic Valve Kylah Crum M.D. [address] [place] [address] [facility] Referral ID Status Reason Start Date Expiration Date V isits Requested Visits Authorized [id number] Canceled 10/01/2023 09/30/2026 300 300 Encounter Details Date Type Department Care Team (Latest Contact Info) Description 10/08/2023 3:00 PM PHOTO INTERN Anticoagulation Visit Department of Anticoagulation in [place], [place] [address] [place] [address] Kylah Crum M.D. 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 I have a [facility] place to live 08/29/2023 Sex and Gender Information Value Date Recorded Sex Assigned at Male 08/29/2023 11:06 AM CDT Gender Identity Male 08/29/2023 11:06 AM CDT Sexual Orientation Straight 08/29/2023 11 :06 AM CDT documented as of this encounter Patient Instructions * Patient Instructions* Jana Cason R.N. - 10/08/2023 3:00 PM PHOTO INTERN Your next INR will be 10/12/23. You will need to call the Anticoagulation Program for warfarin dosing at the scheduled time for your nurse visit, as indicated on your Patient Appointment Guide (PAG). To reschedule your appointment or for questions about your warfarin, please call Primary Care Anticoagulation Program at [phone] from 7:30 am to 4:30 pm. Sunday-Sunday [...] if you start any herbal or other nyun-crj-jcrabqu product (check with your doctor, a nurse, or pharmacist). If you change your diet significantly. If you decide to stop or start using tobacco or alcohol. If you notice unusual bruising or bleeding. If you notice dark, tarry, or bright red stools or blood in your urine. If you have a painful and swollen calf. O INTERN documented in this encounter Progress Notes * [...] questions. Total time spent with patient: N/A O INTERN documented in this encounter Plan of Treatment Upcoming Encounters Date Type Department Care Team (Latest Contact Info) Description 12/21/2023 10:15 AM PHOTO INTERN Clinical Communication Virtual Review in [place], [place] 200 [place] [address] 12/24/2023 2:00 PM PHOTO INTERN Comprehensive Visit Department of Cardiovascular Medicine in [place], [place] [address] [place] [phone] Gudelia Soto M.D. [address] [place] [phone] 01/01/2024 3:45 PM PHOTO INTERN Comprehensive Visit Division of Hematology in [address] [phone] Billy Segal APRN, C.N.P., D.N.P. [address] [place] [phone] documented as of this encounter Results * INR Reflex, POCT, Blood (10/12/2023 11:03 AM PHOTO INTERN) INR Reflex, POCT, B 2.5 10/12/2023 11:02 AM PHOTO INTERN [id number] Comment: ----ADDITIONAL INFORMATION---- Standard intensity warfarin therapeutic range: 2.0 to 3.0 ?? High intensity warfarin therapeutic range: 2.5 to 3.5 Blood (Blood, Capillary) 10/12/2023 11:03 AM PHOTO INTERN 10/12/2023 11:02 AM PHOTO INTERN Kylah Crum M.D. 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 [address] [place] [phone] PCP - General Family Medicine 09/28/23 documented as of this encounter
--- OUTSIDE RECORDS SUMMARY | 2023-12-07 11:24 | XMS_ITS | Encounter Summary ---
Author Name Unknown Organization [facility] Address [address] [place] [address] Care Team Providers Care Leather Goods Sales Representative Name Role Phone Kylah Crum M.D. Primary Care Provider Encounter Details Date Type Department Care Team (Latest Contact Info) Description 10/01/2023 11:51 AM GUM MAKER - 10/01/2023 11:59 PM [facility] Hospital Encounter Department of Laboratory Medicine in [place], [place] [address] [place] [phone] Kylah Crum M.D. [address] [place] [phone] Chronic Kidney Disease Stage 4 Glomerular Filtration [...] (Latest Contact Info) Description 12/21/2023 10:15 AM GUM MAKER Clinical Communication Virtual Review in [place], [place] [address] [place] [address] 12/24/2023 2:00 PM GUM MAKER Comprehensive Visit Department of Cardiovascular Medicine in [place], [place] [address] [place] [address] Gudelia Soto M.D. [address] [place] [phone] 01/01/2024 3:45 PM GUM MAKER Comprehensive Visit Division of Hematology in [place], [place] [address] [place] [phone] Billy Segal APRN, C.N.P., D.N.P. 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 15-29 (HCC) documented in this encounter Results * (ABNORMAL) Basic Metabolic Panel (10/01/2023 12:02 PM GUM MAKER) Potassium, P 4.5 3.6 - 5.2 mmol/L 10/01/2023 4:33 PM GUM MAKER OWAT Sodium, P 137 135 - 145 mmol/L 10/01/2023 4:33 PM GUM MAKER OWAT Chloride, P 99 98 - 107 mmol/L 10/01/2023 4:33 PM GUM MAKER OWAT Bicarbonate, P 24 22 - 29 mmol/L 10/01/2023 4:33 PM GUM MAKER OWAT Anion Gap, P 14 7 - 15 10/01/2023 4:33 PM GUM MAKER OWAT BUN (Blood Urea Nitrogen), P 34(H) 8 - 24 mg/dL 10/01/2023 4:33 PM GUM MAKER OWAT Creatinine 2.36(H) 0.74 - 1.35 mg/dL 10/01/2023 4:33 PM GUM MAKER OWAT Estimated GFR (eGFR) 29(L) >=60 mL/min/BSA 10/01/2023 4:33 PM GUM MAKER OWAT Comment: Estimated GFR calculated using the 2020 CKD_EPI creatinine equation. Calcium, Total, P 8.7(L) 8.8 - 10.2 mg/dL 10/01/2023 4:33 PM GUM MAKER OWAT Glucose, P 222(H) 70 - 140 mg/dL 10/01/2023 4:33 PM GUM MAKER OWAT Blood (Blood, Venous) 10/01/2023 12:02 PM GUM MAKER 10/01/2023 3:43 PM GUM MAKER Kylah Crum M.D. LAB BLOOD ADD-ON [facility] [address] [place] [address], [facility] OWAT [facility] in [place] [address] [place] [address] documented in this encounter Visit Diagnoses Diagnosis Chronic Kidney Disease Stage 4 Glomerular Filtration Rate 15-29 (HCC) documented in this encounter Additional Health Concerns Assessment Noted Time PHQ-9 Depression Total Score: 1 09/10/20 23 2:06 PM CDT documented as of this encounter Care Teams Leather Goods Sales Representative Relationship Specialty Start Date End Date Kylah Crum M.D. [address] [place], [place] [address] [phone] PCP - General Family Medicine 09/28/23 documented as of this encounter
--- OUTSIDE RECORDS SUMMARY | 2023-12-07 11:24 | XMS_ITS | Encounter Summary ---
Author Name Unknown Organization [facility] Address [address] [place] [address] Care Team Providers Care Customer Service Administrator Name Role Phone Kylah Crum M.D. Primary Care Provider [phone] Encounter Details Date Type Department Care Team (Latest Contact Info) Description 10/01/2023 11:50 AM [facility] Hospital Encounter Department of Laboratory Medicine in [place], [place] [address] [place] [phone] Kylah Crum M.D. [address] [place] [phone] Coronary Arterial Bypass Graft Status Post Personal [...] your living situation today? I have a [facility] place to live 08/29/2023 Sex and [...] (Latest Contact Info) Description 12/21/2023 10:15 AM STONE DECORATOR Clinical Communication Virtual Review in [place], [place] [address] [place] [address] 12/24/2023 2:00 PM STONE DECORATOR Comprehensive Visit Department of Cardiovascular Medicine in [address] [phone] Gudelia Soto M.D. [address] [place] [address] 01/01/2024 3:45 PM STONE DECORATOR Comprehensive Visit Division of Hematology in [place], [place] [address] [place] [phone] Billy Segal APRN, C.N.P., D.N.P. [address] [place] [phone] documented as of this encounter Procedures Procedure Name Priority Date/Time Associated Diagnosis Comments INR REFLEX, POCT, B Routine 10/01/2023 1 2:02 PM STONE DECORATOR Coronary Arterial Bypass Graft Status Post Personal History Cardiac Surgery Status Post Bypass Coronary Artery Graft Status Post Prosthesis Aortic Valve documented in this encounter Results * INR Reflex, POCT, Blood (10/01/2023 12:02 PM STONE DECORATOR) INR Reflex, POCT, B 2.0 10/01/2023 12:01 PM STONE DECORATOR [id number] Comment: ----ADDITIONAL INFORMATION---- Standard intensity warfarin therapeutic range: 2.0 to 3.0 ?? High intensity warfarin therapeutic range: 2.5 to 3.5 Blood (Blood, Capillary) 10/01/2023 12:02 PM STONE DECORATOR 10/01/2023 12:01 PM STONE DECORATOR Kylah Crum M.D. LAB POCT ORDERABLES - DEVICE [facility] [address] [place] [address], [facility] FB60 [facility] in [place] [address] [place] [address] documented in this encounter Visit Diagnoses Diagnosis Coronary Arterial Bypass Graft Status Post Personal History Cardiac Surgery Status Post Bypass Coronary Artery Graft Status Post Prosthesis Aortic Valve documented in this encounter Additional Health Concerns Assessment Noted Time PHQ-9 Depression Total Score: 1 09/10/20 23 2:06 PM CDT documented as of this encounter Care Teams Customer Service Administrator Relationship Specialty Start Date End Date Kylah Crum M.D. [address] [place] [address] [place] [phone] PCP - General Family Medicine 09/28/23 documented as of this encounter
--- OUTSIDE RECORDS SUMMARY | 2023-12-07 11:24 | XMS_ITS | Encounter Summary ---
Author Name Unknown Organization [facility] Address [address] [place] [address] Care Team Providers Care Mill Roll Operator Name Role Phone Kylah Crum M.D. Primary Care Provider Reason for Visit * Appointment Request (Routine) - Closed Specialty Diagnoses / Procedures Referred By Sebas gimenez Referred To Contact Cardiovascular Surgery Referral ID Status Reason Start Date Expiration Date Visits Re quested Visits Authorized [id number] Closed 10/03/2023 10/02/2024 1 1 Encounter Details Date Type Department Care Team (Latest Contact Info) Description 10/05/2023 1:00 PM BLUE LINE OPERATOR Virtual Visit Department of Cardiovascular Surgery in [place], [place] [address] [place] [address] Mariama Monk, BONDING EQUIPMENT OPERATOR, C.N.P. [address] [place] [address] Cardiac Surgery Status Post (Primary Dx); Coronary Arterial Bypass Graft Status Post Personal History; Prosthesis Aortic Valve; Usp (Current) Anticoagulant Treatment Social History Tobacco Use [...] your living situation today? [facility] 08/29/2023 Sex and Gender Information Value Date Recorded Sex Assigned at Male 08/29/2023 11:06 AM CDT Gender Identity Male 08/29/2023 11:06 AM CDT Sexual Orientation Straight 08/29/2023 11 :06 AM CDT documented as of this encounter Progress Notes * Mariama Monk, PIERRE, C.N.P. - 10/05/2023 1:00 PM CST Jong Harris : 1950 Visit Date: 10/05/23 KMR-IGNZ-AS-FACE VISIT Consult conducted via real-time audio/video technology by Mariama Monk APRN, C.N.P. in [facility] to the patient in Patient's Home [...] Personal History #3 Prosthesis Aortic Valve #4 Usp (Current) Anticoagulant Treatment Overall, Mr. Harris is [...] by local rehab clinic. Patient referred to: [facility] [address] [place] [id number] Other Medications: -I reviewed medications with Mr. Harris. -Blood pressure has been appropriate per patient report. Metoprolol was initiated and titrated up to 25 mg twice daily prior to dismissal. Home provider should continue to titrate medications as needed for optimal blood pressure control. -[place] [employer] Guidelines for individuals with coronary [...] atrial fibrillation or per recommendations by the Reinsurance Analyst. -Any refills of medications should come from patient's local primary care provider. Other Recommendations: -[place] [facility] via a video visit on 10/03, Primary Care Provider appointment on 10/01 with INR, Primary Reinsurance Analyst appointment TBD, referral sent. -Please monitor blood [...] care of the patient today. Time includes nbk-xaka-wh-face patient care and review of records. Mariama Monk APRN, C.N.P. LINE OPERATOR documented in this encounter Plan of Treatment Upcoming Encounters Date Type Department Care Team (Latest Contact Info) Description 12/21/2023 10:15 AM BLUE LINE OPERATOR Clinical Communication Virtual Review in [address] [address] 12/24/2023 2:00 PM BLUE LINE OPERATOR Comprehensive Visit Department of Cardiovascular Medicine in [address] [phone] Gudelia Soto M.D. [address] [place] [phone] 01/01/2024 3:45 PM BLUE LINE OPERATOR Comprehensive Visit Division of Hematology in [address] [phone] Billy Segal APRN, C.N.P., D.N.P. [address] [place] [phone] documented as of this encounter Visit Diagnoses Diagnosis Cardiac Surgery Status Post- 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 History Prosthesis Aortic Valve Usp (Current) Anticoagulant Treatment documented in this encounter Additional Health Concerns Assessment Noted Time PHQ-9 Depression Total Score: 1 09/10/20 23 2:06 PM CDT documented as of this encounter Care Teams Mill Roll Operator Relationship Specialty Start Date End Date Kylah Crum M.D. [address] [place] [phone] PCP - General Family Medicine 09/28/23 documented as of this encounter
--- OUTSIDE RECORDS SUMMARY | 2023-12-07 11:24 | XMS_ITS | Encounter Summary ---
Author Name Unknown Organization [facility] Address [address] [place] [address] Care Team Providers Care Joint Maker Machine Name Role Phone Kylah Crum M.D. Primary Care Provider [phone] Reason for Visit * Outpatient (Routine) - Canceled Specialty Diagnoses / Procedures Referred By Sebas t Referred To Contact Anticoagulation Diagnoses Coronary Arterial Bypass Graft Status Post Personal History Cardiac Surgery Status Post Bypass Coronary Artery Graft Status Post Prosthesis Aortic Valve Kylah Crum M.D. [address] [place] [address] [facility] Referral ID Status Reason Start Date Expiration Date V isits Requested Visits Authorized [id number] Canceled 10/01/2023 09/30/2026 300 300 Encounter Details Date Type Department Care Team (Latest Contact Info) Description 10/01/2023 3:30 PM ENGINEERING INSPECTOR Anticoagulation Visit Department of Anticoagulation in [place], [place] [address] [place] [address] Kylah Crum M.D. [address] [place] [address] Thread Inspector (Current) Anticoagulant Treatment (Primary Dx); Coronary Arterial [...] living situation today? I have a [facility] place to live 08/29/2023 Sex and Gender Information Value Date Recorded Sex Assigned at Male 08/29/2023 11:06 AM CDT Gender Identity Male 08/29/2023 11:06 AM CDT Sexual Orientation Straight 08/29/2023 11 :06 AM CDT documented as of this encounter Patient Instructions * Patient Instructions* Lola Cat R.N. - 10/01/2023 3:30 PM ENGINEERING INSPECTOR Your next INR will be Thursday October 05, 2023. You will need to call the Anticoagulation Program for warfarin dosing at the scheduled time for your nurse visit, as indicated on your Patient Appointment Guide (PAG). To reschedule your appointment or for questions about your warfarin, please call Primary Care Anticoagulation Program at [phone] from 7:30 am to 4:30 pm. Sunday-Sunday [...] if you start any herbal or other zmvr-yyj-audzkyb product (check with your doctor, a nurse, or pharmacist). If you change your diet significantly. If you decide to stop or start using tobacco or alcohol. If you notice unusual bruising or bleeding. If you notice dark, tarry, or bright red stools or blood in your urine. If you have a painful and swollen calf. NEERING INSPECTOR documented in this encounter Progress Notes * [...] number for Primary Care Anticoagulation Program is [phone] and office hours are from 7:30 am to 4:30 pm. Sunday-Sunday . They were made aware to contact Anticoagulation staff with Warfarin prescription refill needs, upcoming pr ocedures, changes in health status, medication changes, and inaccurate dosing. NEERING INSPECTOR * Lola Cat R.N. - 10/01/2023 3:30 [...] open heart surgery about 6 weeks before. NEERING INSPECTOR documented in this encounter Plan of Treatment Upcoming Encounters Date Type Department Care Team (Latest Contact Info) Description 12/21/2023 10:15 AM ENGINEERING INSPECTOR Clinical Communication Virtual Review in [address] [address] 12/24/2023 2:00 PM ENGINEERING INSPECTOR Comprehensive Visit Department of Cardiovascular Medicine in [address] [address] Gudelia Soto M.D. [address] [place] [phone] 01/01/2024 3:45 PM ENGINEERING INSPECTOR Comprehensive Visit Division of Hematology in [address] [phone] Billy Segal APRN, C.N.P., D.N.P. [address] [place] [phone] documented as of this encounter Results * INR Reflex, POCT, Blood (10/05/2023 10:35 AM ENGINEERING INSPECTOR) INR Reflex, POCT, B 1.7 10/05/2023 10:35 AM ENGINEERING INSPECTOR FB60 Comment: ----ADDITIONAL INFORMATION---- Standard intensity warfarin therapeutic range: 2.0 to 3.0 ?? High intensity warfarin therapeutic range: 2.5 to 3.5 Blood (Blood, Capillary) 10/05/2023 10:35 AM ENGINEERING INSPECTOR 10/05/2023 10:35 AM ENGINEERING INSPECTOR Kylah Crum M.D. LAB POCT ORDERABLES - DEVICE [facility] [address] [place] [address], [facility] FB60 [facility] [place] [address] [place] [address] documented in this encounter Visit Diagnoses Diagnosis Thread Inspector (Current) Anticoagulant Treatment- 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 History Cardiac Surgery Status Post Bypass Coronary Artery Graft Status Post Prosthesis Aortic Valve Monitoring For Therapeutic Drug Therapy documented in this encounter Additional Health Concerns Assessment Noted Time PHQ-9 Depression Total Score: 1 09/10/20 2:06 PM CDT documented as of this encounter Care Teams Joint Maker Machine Relationship Specialty Start Date End Date Kylah Crum M.D. [address] [facility] [place] [address] PCP - General Family Medicine 09/28/23 documented as of this encounter
--- OUTSIDE RECORDS SUMMARY | 2023-12-07 11:25 | XMS_ITS | Encounter Summary ---
Author Name Unknown Organization [facility] Address [address] [place] [address] Care Team Providers Care Sales Technician Name Role Phone Kylah Crum M.D. Primary Care Provider [phone] Reason for Referral * Outpatient (Routine) - Authorized Specialty Diagnoses / Procedures Referred By Contact Referred To Contact Cardiovascular Diseases / Cardiovascular Disease Diagnoses Cardiac Surgery Status Post Coronary Arterial Bypass Graft Status Post Personal History Prosthesis Aortic Valve Bypass Coronary Artery Graft Status Post Kylah Crum M.D. [address] [place] [address] [facility] Referral ID Status Reason Start Date Expiration Date V isits Requested Visits Authorized [id number] Authorized 10/01/2023 09/30/2024 1 1 T SALES ASSISTANT * Outpatient (Routine) - Closed Specialty Diagnoses / Procedures Referred By Contac t Referred To Contact Nephrology and Hypertension Diagnoses Chronic Kidney Disease Stage 4 Glomerular Filtration Rate 15-29 (HCC) Procedures Nephrology - Chronic renal failure eConsult Kylah Crum M.D. [address] [place] [address] [facility] Referral ID Status Reason Start Date Expiration Date Visits Re quested Visits Authorized [id number] Closed 10/01/2023 09/30/2024 1 1 T SALES ASSISTANT Reason for Visit * Reason Comments Post Hospital Follow-up Cardiac 09/19 * Appointment Request (Routine) - Closed Specialty Diagnoses / Procedures Referred By Contjackelin t Referred To Contact Family Medicine Referral ID Status Reason Start Date Expiration Date Visits Re quested Visits Authorized [id number] Closed 09/28/2023 09/27/2024 1 1 Encounter Details Date Type Department Care Team (Bianca st Contact Info) Description 10/01/2023 11:00 AM EVENT SALES ASSISTANT Office Visit Department of Family Medicine, [facility], in [place], [place] [address] [place] [phone] Kylah Crum M.D. [address] [place] [phone] Chronic Kidney Disease Stage 4 Glomerular Filtration [...] your living situation today? I have a [facility] place to live 08/29/2023 Sex and Gender Information Value Date Recorded Sex Assigned at Male 08/29/2023 11:06 AM CDT Gender Identity Male 08/29/2023 11:06 AM CDT Sexual Orientation Straight 08/29/2023 11 :06 AM CDT documented as of this encounter Last Filed Vital Signs Vital Sign Reading Time Taken Comments Blood Pressure 108/65 10/01/2023 11:08 AM EVENT SALES ASSISTANT aveage Pulse 76 10/01/2023 11:08 AM EVENT SALES ASSISTANT Temperature 36.1 ??C (96.9 ??F) 10/01/2023 1 1:08 AM EVENT SALES ASSISTANT Respiratory Rate 20 10/01/2023 11:0 8 AM EVENT SALES ASSISTANT Oxygen Saturation 98% 10/01/2023 11: 08 AM EVENT SALES ASSISTANT Inhaled Oxygen Concentration - - Weight 90.2 kg (198 lb 11.9 oz) 023 11:08 AM EVENT SALES ASSISTANT Height 172.4 cm (5' 7.87) 10/01/2023 1 1:08 AM EVENT SALES ASSISTANT Body Mass Index 30.33 10/01/2023 11:08 AM EVENT SALES ASSISTANT documented in this encounter Progress Notes * Kylah Crum M.D. - 10/01/2023 11:00 AM CST Progress Note This is a post hospital discharge visit Hospital: [place] Admission Date: 09/19/2023 Discharge Date 09/26/2023 PRINCIPAL [...] or numbness. He lives with his in [place]. No Known Allergies Current Outpatient Medications: acetaminophen [...] Disease Stage 4 Glomerular Filtration Rate 15-29 ([facility]) - Nephrology - Chronic renal failure eConsult; [...] follow up with him in 3-4 weeks. T SALES ASSISTANT documented in this encounter Plan of Treatment Upcoming Encounters Date Type Department Care Team (Latest Contact Info) Description 12/21/2023 10:15 AM EVENT SALES ASSISTANT Clinical Communication Virtual Review in [place], [place] [address] [place] [address] 12/24/2023 2:00 PM EVENT SALES ASSISTANT Comprehensive Visit Department of Cardiovascular Medicine in [place], [place] [address] [place] [address] Gudelia Soto M.D. [address] [place] [phone] 01/01/2024 3:45 PM EVENT SALES ASSISTANT Comprehensive Visit Division of Hematology in [place], [place] [address] [place] [phone] Billy Segal APRN, C.N.P., D.N.P. [address] [place] [phone] Scheduled Referrals Name Type Priority Associated Diagnoses Order Schedule Cardiovascular Disease - General cardiology consult (clinic) Outpatient Referral Routine Cardiac Surgery Status Post Coronary Arterial Bypass Graft Status Post Personal History Prosthesis Aortic Valve Bypass Coronary Artery Graft Status Post Expected: 10/01/2023 (Approximate), Expires: 01/01/2025 documented as of this encounter Results * (ABNORMAL) Basic Metabolic Panel (10/01/2023 12:02 PM EVENT SALES ASSISTANT) Potassium, P 4.5 3.6 - 5.2 mmol/L 10/01/2023 4:33 PM EVENT SALES ASSISTANT OWAT Sodium, P 137 135 - 145 mmol/L 10/01/2023 4:33 PM EVENT SALES ASSISTANT OWAT Chloride, P 99 98 - 107 mmol/L 10/01/2023 4:33 PM EVENT SALES ASSISTANT OWAT Bicarbonate, P 24 22 - 29 mmol/L 10/01/2023 4:33 PM EVENT SALES ASSISTANT OWAT Anion Gap, P 14 7 - 15 10/01/2023 4:33 PM EVENT SALES ASSISTANT OWAT BUN (Blood Urea Nitrogen), P 34(H) 8 - 24 mg/dL 10/01/2023 4:33 PM EVENT SALES ASSISTANT OWAT Creatinine 2.36(H) 0.74 - 1.35 mg/dL 10/01/2023 4:33 PM EVENT SALES ASSISTANT OWAT Estimated GFR (eGFR) 29(L) >=60 mL/min/BSA 10/01/2023 4:33 PM EVENT SALES ASSISTANT OWAT Comment: Estimated GFR calculated using the 2020 CKD_EPI creatinine equation. Calcium, Total, P 8.7(L) 8.8 - 10.2 mg/dL 10/01/2023 4:33 PM EVENT SALES ASSISTANT OWAT Glucose, P 222(H) 70 - 140 mg/dL 10/01/2023 4:33 PM EVENT SALES ASSISTANT OWAT Blood (Blood, Venous) 10/01/2023 12:02 PM EVENT SALES ASSISTANT 10/01/2023 3:43 PM EVENT SALES ASSISTANT Kylah Crum M.D. LAB BLOOD ADD-ON Performing Organization Address City/State/[facility] Co de Phone Number [facility] [address] [place] [address], [facility] OWAT [facility] [place] [address] [place] [address] documented in this encounter Visit Diagnoses Diagnosis [...] documented as of this encounter Care Teams Sales Technician Relationship Specialty Start Date End Date Kylah Crum M.D. [address] [place] [phone] PCP - General Family Medicine 09/28/23 documented as of this encounter
--- OUTSIDE RECORDS SUMMARY | 2023-12-07 11:25 | XMS_ITS | Encounter Summary ---
Author Name Unknown Organization [facility] Address [address] [place] [address] Care Team Providers Care Machine Binding Folder Name Role Phone Kylah Crum M.D. Primary Care Provider [phone] Reason for Visit * Reason Onset Date Comments Anticoagulation 09/28/2023 Encounter Details Date Type Department Care Team (Latest Contact Info) Description 09/28/2023 Clinical Communication Department of Anticoagulation in [place], [place] [address] [place] [address] Edna Quinones R.N. [address] [place] [address] Anticoagulation Social History Tobacco Use [...] Casandra Loo R.N. - 09/28/2023 3:30 PM GOLD AND SILVER ASSAYER Information Discussed Called patient to inform him of his options regarding receiving anticoagulation dosing. Patient reports his primary care provider is currently at [place] and at discharge he was scheduled for an INR and post-hospital visit with his PCP in [place], however, patient states he cancelled those appointment because he cannot drive two hours for his care, especially after heart surgery. Patient is currently living in [place] and he plans to establish with a primary care provider in [place] but has not been able to do so yet. I informed patient that since he does not have a [facility] primary care provider, anticoagulationdosing cannot be provided by our department. Patient was recommended to contact his primary care provider in [place] and call the number on his AVS [...] care: yes The following references were used: [facility] protocols: Anticoagulation Program Enrollment Eligibility Guideline - [facility] Region, [facility] Region . AND SILVER ASSAYER * Telephone Encounter - Edna Quinones R.N. - 09/28/2023 2:58 PM GOLD AND SILVER ASSAYER Patient and daughter phone into the Anticoagulation [...] anticoagulation and patient does not have a [place] primary provider. Patient is not aware of [...] called back by end of day at [phone] AND SILVER ASSAYER documented in this encounter Plan of Treatment Upcoming Encounters Date Type Department Care Team (Latest Contact Info) Description 12/21/2023 10:15 AM GOLD AND SILVER ASSAYER Clinical Communication Virtual Review in [place], [place] [address] [place] [address] 12/24/2023 2:00 PM GOLD AND SILVER ASSAYER Comprehensive Visit Department of Cardiovascular Medicine in [place], [place] [address] [place] [address] Gudelia Soto M.D. [address] [place] [address] 01/01/2024 3:45 PM GOLD AND SILVER ASSAYER Comprehensive Visit Division of Hematology in [place], [place] [address] [place] [address] Billy Segal APRN, C.N.P., D.N.P. [address] [place] [phone] documented as of this encounter Visit Diagnoses Not on filedocumented in this encounter Additional Health Concerns Assessment Noted Time PHQ-9 Depression Total Score: 1 09/10/20 23 2:06 PM CDT documented as of this encounter Care Teams Machine Binding Folder Relationship Specialty Start Date End Date Kylah Crum M.D. [address] [place] [phone] PCP - General Family Medicine 09/28/23 documented as of this encounter
--- OUTSIDE RECORDS SUMMARY | 2023-12-07 11:25 | XMS_ITS | Encounter Summary ---
Author Name Unknown Organization [facility] Address [address] [place] [address] Care Team Providers Care Replanting Machine Crew Name Role Phone Kylah Crum M.D. Primary Care Provider [phone] Reason for Visit * Reason Onset Date Comments Anticoagulation 10/01/2023 CCM enrollment Encounter Details Date Type Department Care Team (Latest Contact Info) Description 10/01/2023 Clinical Communication Department of Anticoagulation in [place], [place] [address] [place] [address] Ralf Peralta RJarrettNJarrett [address] [place] [address] Anticoagulation (CCM enrollment) Social History Tobacco Use [...] your living situation today? I have a [facility] place to live 08/29/2023 Sex and Gender Information Value Date Recorded Sex Assigned at Male 08/29/2023 11:06 AM CDT Gender Identity Male 08/29/2023 11:06 AM CDT Sexual Orientation Straight 08/29/2023 11 :06 AM CDT documented as of this encounter Miscellaneous Notes * Telephone Encounter - Lola Cat R.N. - 10/01/2023 4:45 PM SENIOR SYSTEM OPERATOR Consent for Chronic Care Management (CCM) requiring [...] questions on Chronic Care Management coverage or [facility] Patient Account Servicesif they have any questions about their bill. OR SYSTEM OPERATOR documented in this encounter Plan of Treatment Upcoming Encounters Date Type Department Care Team (Latest Contact Info) Description 12/21/2023 10:15 AM SENIOR SYSTEM OPERATOR Clinical Communication Virtual Review in [place], [place] [address] [place] [address] 12/24/2023 2:00 PM SENIOR SYSTEM OPERATOR Comprehensive Visit Department of Cardiovascular Medicine in [place], [place] [address] [place] [phone] Gudelia Soto M.D. [address] [place] [phone] 01/01/2024 3:45 PM SENIOR SYSTEM OPERATOR Comprehensive Visit Division of Hematology in [address] [phone] Billy Segal APRN, C.N.P., D.N.P. [address] [place] [phone] documented as of this encounter Visit Diagnoses Diagnosis Coronary Arterial Bypass Graft Status Post Personal History- Primary Prosthesis Aortic Valve Cardiac Surgery Status Post Bypass Coronary Artery Graft Status Post Medical Records Secretary (Current) Anticoagulant Treatment Monitoring For Therapeutic Drug Therapy documented in this encounter Additional Health Concerns Assessment Noted Time PHQ-9 Depression Total Score: 1 09/10/20 23 2:06 PM CDT documented as of this encounter Care Teams Replanting Machine Crew Relationship Specialty Start Date End Date Kylah Crum M.D. [address] [place] [phone] PCP - General Family Medicine 09/28/23 documented as of this encounter
--- OUTSIDE RECORDS SUMMARY | 2023-12-07 11:25 | XMS_ITS | Encounter Summary ---
Author Name Unknown Organization [facility] Address [address] [place] [address] Care Team Providers Care Reversing Mill Roller Name Role Phone Kylah Crum M.D. Primary Care Provider Reason for Referral * Outpatient (Routine) - Authorized Specialty Diagnoses / Procedures Referred By Contact Referred To Contact Hematology / Anticoagulation Diagnoses Cardiac Surgery Status Post Coronary Arterial Bypass Graft Status Post Personal History Prosthesis Aortic Valve Bypass Coronary Artery Graft Status Post Sammi Kothari APRN C.N.P., D.N.P. [address] [place] [address] Referral ID Status Reason Start Date Expiration Date Visits Requested Visits Authorized [id number] Authorized Specialty Services Required 09/28/2025 1 1 Scheduling Instructions Per [facility] warfarin management protocols OGICAL INSPECTOR * Outpatient (Routine) - Closed Specialty Diagnoses / Procedures Referred By Sebas gimenez Referred To Contact Diagnoses Cardiac Surgery Status Post Coronary Arterial Bypass Graft Status Post Personal History Prosthesis Aortic Valve Bypass Coronary Artery Graft Status Post Sammi Kothari APRN, C.N.P., D.N.P. [address] [place] [phone] [facility] Referral ID Status Reason Start Date Expiration Date Visits Re quested Visits Authorized [id number] Closed 09/28/2023 09/27/2026 1 1 Scheduling Instructions We will be contacting you with more information on this referral. An appointment will be scheduled for you. More information is listed below. OGICAL INSPECTOR Encounter Details Date Type Department Care Team (Late st Contact Info) Description 09/28/2023 Clinical Communication RST HIM [address] [place] [address] Sarah Miller M.D., M.P.H. [address] [place] [address] Social History Tobacco Use Types Packs/Day Years [...] (Latest Contact Info) Description 12/21/2023 10:15 AM BIOLOGICAL INSPECTOR Clinical Communication Virtual Review in [place], [place] 200 [place] [address] 12/24/2023 2:00 PM BIOLOGICAL INSPECTOR Comprehensive Visit Department of Cardiovascular Medicine in [place], [place] [address] [place] [phone] Gudelia Soto M.D. [address] [place] [phone] 01/01/2024 3:45 PM BIOLOGICAL INSPECTOR Comprehensive Visit Division of Hematology in [address] [phone] Billy Segal APRN, C.N.P., D.N.P. [address] [place] [phone] Scheduled Referrals Name Type Priority Associated Diagnoses [...] documented as of this encounter Care Teams Reversing Mill Roller Relationship Specialty Start Date End Date Kylah Crum M.D. [address] [place] [phone] PCP - General Family Medicine 09/28/23 documented as of this encounter
--- OUTSIDE RECORDS SUMMARY | 2023-12-07 11:25 | XMS_ITS | Encounter Summary ---
Author Name Unknown Organization [facility] Address [address] [place] [address] Care Team Providers Care Stand Grinder Name Role Phone Kylah Crum M.D. Primary Care Provider [phone] Reason for Referral * Specialty Diagnoses / Procedures Referred By Sebas gimenez Referred To Contact [address] [place] [phone] [facility] Referral ID Status Reason Start Date Expiration Date Visits Re quested Visits Authorized ICATION MANAGER * Outpatient (Routine) - Authorized Specialty Diagnoses / Procedures Referred By Contact Referred To Contact Hematology / Anticoagulation Diagnoses Coronary Arterial Bypass Graft Status Post Personal History Cardiac Surgery Status Post Bypass Coronary Artery Graft Status Post Kylah Crum M.D. [address] [place] [phone] Referral ID Status Reason Start Date Expiration Date Visits Requested Visits Authorized [id number] Authorized Specialty Services Required 3 10/01/2025 1 1 Scheduling Instructions Per [facility] warfarin management protocols ICATION MANAGER Reason for Visit * Reason Onset Date Comments Anticoagulation 10/01/2023 New enrollment Encounter Details Date Type Department Care Team (Latest Contact Info) Description 10/01/2023 Clinical Communication Department of Anticoagulation in [place], [place] [address] [place] [phone] Nidia Kuhn Anticoagulation (New enrollment) Social History [...] your living situation today? I have a [facility] place to live 08/29/2023 Sex [...] number for Primary Care Anticoagulation Program at [phone] from 7:30 am to 4:30 pm. Sunday-Sunday [...] sent via portal to the patient today. ICATION MANAGER * Telephone Encounter - Ralf Peralta R.N. - 10/01/2023 9:37 AM PUBLICATION MANAGER Reason for admit: Stenosis Aortic Valve, acquired [...] NO See anticoagulation tracker for final plan. ICATION MANAGER * Telephone Encounter - Nidia Kuhn - 10/01/2023 8:46 AM CST New Primary Care Anticoagulation referral order received. Has the patient previously been enrolled in the Anticoagulation Program? No, Patient has not been previously enrolled in the Anticoagulation Program Does the patient have a Primary Care Provider (PCP) in the [facility] region and have they received care from [...] list? (Warfarin/Jantoven, Enoxaparin (Lovenox), Heparin)? Yes: Warfarin/Jantoven ICATION MANAGER documented in this encounter Plan of Treatment Upcoming Encounters Date Type Department Care Team (Latest Contact Info) Description 12/21/2023 10:15 AM PUBLICATION MANAGER Clinical Communication Virtual Review in [place], [place] [address] [place] [address] 12/24/2023 2:00 PM PUBLICATION MANAGER Comprehensive Visit Department of Cardiovascular Medicine in [place], [place] [address] [place] [phone] Gudelia Soto M.D. [address] [place] [phone] 01/01/2024 3:45 PM PUBLICATION MANAGER Comprehensive Visit Division of Hematology in [place], [place] [address] [place] [address] Billy Segal APRN, C.N.P., D.N.P. 200 [place] [address] Scheduled Referrals Name Type Priority Associated Diagnoses [...] INR Reflex, POCT, Blood (10/01/2023 12:02 PM PUBLICATION MANAGER) INR Reflex, POCT, B 2.0 10/01/2023 12:01 PM PUBLICATION MANAGER [id number] Comment: ----ADDITIONAL INFORMATION---- Standard intensity warfarin therapeutic range: 2.0 to 3.0 ?? High intensity warfarin therapeutic range: 2.5 to 3.5 Blood (Blood, Capillary) 10/01/2023 12:02 PM PUBLICATION MANAGER 10/01/2023 12:01 PM PUBLICATION MANAGER Kylah Crum M.D. LAB POCT ORDERABLES - DEVICE Performing Organization Address City/State/[facility] Co de Phone Number [facility] [address] [place] [address], [place] FB60 [facility] in [place] [address] [place] [address] documented in this encounter Visit Diagnoses Diagnosis Coronary Arterial Bypass Graft Status Post Personal History- Primary Cardiac Surgery Status Post Bypass Coronary Artery Graft Status Post Prosthesis Aortic Valve Group Home (Current) Anticoagulant Treatment Monitoring For Therapeutic Drug Therapy documented in this encounter Additional Health Concerns Assessment Noted Time PHQ-9 Depression Total Score: 1 09/10/20 23 2:06 PM CDT documented as of this encounter Care Teams Stand Grinder Relationship Specialty Start Date End Date Kylah Crum M.D. [address] [place] [address] [place] [phone] PCP - General Family Medicine 09/28/23 documented as of this encounter
--- OUTSIDE RECORDS SUMMARY | 2023-12-07 11:25 | XMS_ITS | Encounter Summary ---
Author Name Unknown Organization [facility] Address [address] [place] [address] Care Team Providers Care Diagnostics Sales Developer Name Role Phone Kylah Crum M.D. Primary Care Provider Encounter Details Date Type Department Care Team (Latest Contact Info) Description 09/28/2023 1:33 PM PLANT PRODUCTION WORKER - 09/28/2023 11:59 PM [facility] Hospital Encounter Department of Laboratory Medicine in [address] [phone] Sammi Kothari, PIERRE, C.N.P., D.N.P. [address] [place] [phone] Prosthesis Aortic Valve Discharge Disposition: Home or [...] your living situation today? I have a [facility] place to live 08/29/2023 Sex [...] Contact Info) Description 12/21/2023 10:15 AM PLANT PRODUCTION WORKER Clinical Communication Virtual Review in [place], [place] 200 [place] [address] 12/24/2023 2:00 PM PLANT PRODUCTION WORKER Comprehensive Visit Department of Cardiovascular Medicine in [address] [phone] Gudelia Soto M.D. [address] [place] [phone] 01/01/2024 3:45 PM PLANT PRODUCTION WORKER Comprehensive Visit Division of Hematology in [place], [place] [address] [place] [phone] Billy Segal APRN, C.N.PJarrett, D.N.P. [address] [place] [phone] documented as of this encounter Procedures Procedure Name Priority Date/Time Associated Diagnosis Comments PROTHROMBIN TIME (PT), P Routine 09/28/2023 1:41 PM PLANT PRODUCTION WORKER Prosthesis Aortic Valve documented in this encounter Results * (ABNORMAL) Prothrombin Time (PT) (09/28/2023 1:41 PM PLANT PRODUCTION WORKER) Prothrombin Time, P 18.4(H) 9.4 - 12.5 sec 09/28/2023 4:01 PM PLANT PRODUCTION WORKER OWAT INR 1.6 0.9 - 1.1 09/28/2023 4:01 PM PLANT PRODUCTION WORKER OWAT Comment: ----ADDITIONAL INFORMATION---- Standard intensity warfarin therapeutic range: 2.0 to 3.0 ?? High intensity warfarin therapeutic range: 2.5 to 3.5 Blood (Blood, Venous) 09/28/2023 1:41 PM PLANT PRODUCTION WORKER 09/28/2023 3:32 PM PLANT PRODUCTION WORKER Sammi Kothari APRN, C.N.P., D.N.P. LAB BL OOD ADD-ON [facility] [address] [place] [address], [place] OWAT [facility] in [place] [address] [place] [address] documented in this encounter Visit Diagnoses Diagnosis Prosthesis Aortic Valve documented in this encounter Additional Health Concerns Assessment Noted Time PHQ-9 Depression Total Score: 1 09/10/20 23 2:06 PM CDT documented as of this encounter Care Teams Diagnostics Sales Developer Relationship Specialty Start Date End Date Kylah Crum M.D. [address] [place] [address] [place] [phone] PCP - General Family Medicine 09/28/23 documented as of this encounter
--- OUTSIDE RECORDS SUMMARY | 2023-12-07 11:25 | XMS_ITS | Encounter Summary ---
Author Name Unknown Organization [facility] Address [address] [place] [address] Care Team Providers Care Manager Distribution Center Name Role Phone Elsewhere, Pcp Primary Care Provider Unavailabl e Encounter Details Date Type Department Care Team ([facility] st Contact Info) Description 09/27/2023 Clinical Communication RST HIM [address] [place] [phone] Sarah Miller M.D., M.P.H. [address] [place] [phone] Social History Tobacco Use Types Packs/Day Years [...] your living situation today? I have a [facility] place to live 08/29/2023 Sex and Gender Information Value Date Recorded Sex Assigned at Male 08/29/2023 11:06 AM CDT Gender Identity Male 08/29/2023 11:06 AM CDT Sexual Orientation Straight 08/29/2023 11 :06 AM CDT documented as of this encounter Plan of Treatment Upcoming Encounters Date Type Department Care Team (Latest Contact Info) Description 12/21/2023 10:15 AM SURGERY NURSE Clinical Communication Virtual Review in [place], [place] [address] [place] [address] 12/24/2023 2:00 PM SURGERY NURSE Comprehensive Visit Department of Cardiovascular Medicine in [place], [place] [address] [place] [phone] Gudelia Soto M.D. [address] [place] [phone] 01/01/2024 3:45 PM SURGERY NURSE Comprehensive Visit Division of Hematology in [place], [place] [address] [place] [phone] Billy Segal APRN, C.N.P., D.N.P. [address] [place] [phone] documented as of this encounter Visit Diagnoses Diagnosis Coronary Arterial Bypass Graft Status Post Personal History- Primary Device Cardiac Status Post documented in this encounter Additional Health Concerns Assessment Noted Time PHQ-9 Depression Total Score: 1 09/10/20 23 2:06 PM CDT documented as of this encounter Care Teams Manager Distribution Center Relationship Specialty Start Date End Date Elsewhere, Pcp PCP - General Internal Medicine 08/19/23 09/27/23 documented as of this encounter
--- OUTSIDE RECORDS SUMMARY | 2023-12-07 11:25 | XMS_ITS | Encounter Summary ---
Author Name Unknown Organization [facility] Address [address] [place] [address] Care Team Providers Care Public Relations Supervisor Name Role Phone Kylah Crum M.D. Primary Care Provider [phone] Encounter Details Date Type Department Care Team ([facility] st Contact Info) Description 09/28/2023 Clinical Communication RST HIM [address] [place] [phone] Sarah Miller M.D., M.P.H. [address] [place] [phone] Social History Tobacco Use Types Packs/Day Years [...] your living situation today? I have a [facility] place to live 08/29/2023 Sex and Gender Information Value Date Recorded Sex Assigned at Male 08/29/2023 11:06 AM CDT Gender Identity Male 08/29/2023 11:06 AM CDT Sexual Orientation Straight 08/29/2023 11 :06 AM CDT documented as of this encounter Plan of Treatment Upcoming Encounters Date Type Department Care Team (Latest Contact Info) Description 12/21/2023 10:15 AM LITERACY TEACHER Clinical Communication Virtual Review in [place], [place] [address] [place] [address] 12/24/2023 2:00 PM LITERACY TEACHER Comprehensive Visit Department of Cardiovascular Medicine in [place], [place] [address] [place] [phone] Gudelia Soto M.D. [address] [place] [phone] 01/01/2024 3:45 PM LITERACY TEACHER Comprehensive Visit Division of Hematology in [place], [place] [address] [place] [phone] Billy Segal APRN, C.N.P., D.N.P. [address] [place] [address] documented as of this encounter Results * (ABNORMAL) Prothrombin Time (PT) (09/28/2023 1:41 PM LITERACY TEACHER) Prothrombin Time, P 18.4(H) 9.4 - 12.5 sec 09/28/2023 4:01 PM LITERACY TEACHER OWAT INR 1.6 0.9 - 1.1 09/28/2023 4:01 PM LITERACY TEACHER OWAT Comment: ----ADDITIONAL INFORMATION---- Standard intensity warfarin therapeutic range: 2.0 to 3.0 ?? High intensity warfarin therapeutic range: 2.5 to 3.5 Blood (Blood, Venous) 09/28/2023 1:41 PM LITERACY TEACHER 09/28/2023 3:32 PM LITERACY TEACHER Radha Yanes APRNN.P., D.N.P. LAB BL OOD ADD-ON [facility] [address] [place] [address], [facility] OWAT [facility] in [place] [address] [place] [address] documented in this encounter Visit Diagnoses Diagnosis Coronary Arterial Bypass Graft Status Post Personal History- Primary Prosthesis Aortic Valve documented in this encounter Additional Health Concerns Assessment Noted Time PHQ-9 Depression Total Score: 1 09/10/20 23 2:06 PM CDT documented as of this encounter Care Teams Public Relations Supervisor Relationship Specialty Start Date End Date Kylah Curm M.D. [address] [place] [address] [place] [phone] PCP - General Family Medicine 09/28/23 documented as of this encounter
--- OUTSIDE RECORDS SUMMARY | 2023-12-07 11:25 | XMS_ITS | Encounter Summary ---
Author Name Unknown Organization [facility] Address [address] [place] [address] Care Team Providers Care Petrography Teacher Name Role Phone Kylah Crum M.D. Primary Care Provider [phone] Encounter Details Date Type Department Care Team (Latest Contact Info) Description 09/28/2023 Clinical Communication Department of Cardiovascular Surgery in [place], [place] [address] [place] [phone] Sammi Kothari, PIERRE, C.N.P., D.N.P. [address] [place] [phone] Social History Tobacco Use Types Packs/Day Years [...] your living situation today? I have a [facility] place to live 08/29/2023 Sex and Gender Information Value Date Recorded Sex Assigned at Male 08/29/2023 11:06 AM CDT Gender Identity Male 08/29/2023 11:06 AM CDT Sexual Orientation Straight 08/29/2023 11 :06 AM CDT documented as of this encounter Miscellaneous Notes * Telephone Encounter - Sammi Kothari, PIERRE, C.N.P., D.N.P. - 09/28/2023 4:36 PM CST This racebook writer received a call regarding INR issues. Please see previous communications for more details.This racebook writer did call daughter Fanny [phone] regarding the patients INR and dosing. The [facility]was [facility] at [facility] but unable to be dosed. INR today was 1.6. The patient was instructed totake 2 mg (2 tabs) on 09/28, 09/29 and 09/30. We established the patient in the [facility] system and were able to get a referral into the anticogulation clinic who will manage the INR in the future. Next appointment scheduled at the [facility] with INR check on 10/01. R QUALITY TECHNICIAN documented in this encounter Plan of Treatment Upcoming Encounters Date Type Department Care Team (Latest Contact Info) Description 12/21/2023 10:15 AM WATER QUALITY TECHNICIAN Clinical Communication Virtual Review in [place], [place] 200 [place] [address] 12/24/2023 2:00 PM WATER QUALITY TECHNICIAN Comprehensive Visit Department of Cardiovascular Medicine in [place], [place] [address] [place] [phone] Gudelia Soto M.D. [address] [place] [phone] 01/01/2024 3:45 PM WATER QUALITY TECHNICIAN Comprehensive Visit Division of Hematology in [place], [place] [address] [place] [phone] Billy Segal APRN, C.N.P., D.N.P. [address] [place] [phone] documented as of this encounter Visit Diagnoses Not on filedocumented in this encounter Additional Health Concerns Assessment Noted Time PHQ-9 Depression Total Score: 1 09/10/20 23 2:06 PM CDT documented as of this encounter Care Teams Petrography Teacher Relationship Specialty Start Date End Date Kylah Crum M.D. [address] [place] [phone] PCP - General Family Medicine 09/28/23 documented as of this encounter
--- OUTSIDE RECORDS SUMMARY | 2023-12-07 11:26 | XMS_ITS | Encounter Summary ---
Author Name Unknown Organization [facility] Address [address] [place] [address] Care Team Providers Care Lead Burner Name Role Phone Elsewhere, Pcp Primary Care Provider Unavailabl e Reason for Referral * Outpatient (Routine) - Authorized Specialty Diagnoses / Procedures Referred By Sebas gimenez Referred To Contact Diagnoses Prosthesis Aortic Valve Bypass Coronary Artery Graft Status Post Sarah Miller M.D., M.P.H. [address] [place] [address] Referral ID Status Reason Start Date Expiration Date Visits Requested Visits Authorized [id number] Authorized Continuity of Care 09/24/2023 09/23/2024 1 1 Y LEVEL BUSINESS ANALYST Reason for Visit * Auth/Cert (Routine) Specialty Diagnoses / Procedures Referred By Sebas gimenez Referred To Contact Diagnoses Stenosis Aortic Valve Acquired Stenosis Aortic Valve Acquired [I35.0] Procedures MS RPLC AORTIC VLV W PROSTH VLV MS COR ART BYPASS 1 COR JORDAN GRAFT MS REOP COR ART BYP/VALVE PROC MS ENDO SURG W VA HARVEST CABG MS EXCL DAHIANA OPN OTH PX ANY METH REPLACEMENT AORTIC VALVE 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 - REDO LIGATION LEFT ATRIAL APPENDAGE ISOLATION PULMONARY VEIN Referral ID Status Reason Start Date Expiration Date Visits Re quested Visits Authorized [id number] 1 1 Encounter Details Date Type Department Care Team (Latest Contact Info) Description 09/19/2023 5:38 AM ENTRY LEVEL BUSINESS ANALYST - 09/26/2023 4:29 PM ENTRY LEVEL BUSINESS ANALYST Hospital Encounter [facility], [facility], [facility], Fifth Floor [address] [place] [phone] Sarah Miller M.D., M.P.H. [address] [place] [address] Acquired Aortic Valve Disorder (Primary Dx); Stenosis [...] living situation today? I have a [facility] place to live 08/29/2023 Sex and Gender Information Value Date Recorded Sex Assigned at Male 08/29/2023 11:06 AM CDT Gender Identity Male 08/29/2023 11:06 AM CDT Sexual Orientation Straight 08/29/2023 11 :06 AM CDT documented as of this encounter Last Filed Vital Signs Vital Sign Reading Time Taken Comments Blood Pressure 137/59 09/26/2023 3:05 PM ENTRY LEVEL BUSINESS ANALYST Pulse 67 09/26/2023 3:05 PM ENTRY LEVEL BUSINESS ANALYST Temperature 36.8 ??C (98.2 ??F) 09/26/2023 3:05 PM CS T Respiratory Rate 18 09/26/2023 3:05 PM ENTRY LEVEL BUSINESS ANALYST Oxygen Saturation 93% 09/26/2023 3:05 PM ENTRY LEVEL BUSINESS ANALYST Inhaled Oxygen Concentration - - Weight 87.9 kg (193 lb 12.6 oz) 09/26/2023 7:46 AM ENTRY LEVEL BUSINESS ANALYST Height 173 cm (5' 8.11) 09/26/2023 12: 04 PM ENTRY LEVEL BUSINESS ANALYST Body Mass Index 29.37 09/26/2023 7:46 AM ENTRY LEVEL BUSINESS ANALYST documented in this encounter Discharge Summaries * [...] (Acute Kidney Injury) (HCC) Hyperkalemia 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 Therapy Senior Care Antiplatelet Device Cardiac Status Post Cardiac Surgery [...] Follow-up recommendations post Cardiac Surgery Follow-up Visit: [facility] via a video visit on 10/03, Primary Care Provider appointment on 10/01 with INR, Primary Hand Picker appointment TBD, referral sent. INR appointment on 09/28 at local lab. Follow-up Testing: Post-operative testing per the discretion of the PCP or Hand Picker. Monitor INR at discretion of SNF provider [...] as needed for optimal blood pressure control. [place] [employer] Guidelines for individuals with coronary [...] atrial fibrillation or per recommendations by the Hand Picker. Antiplatelet Therapy: Aspirin 81 mg daily recommended [...] assess surgical incision sites for healing. Contact [facility] Cardiovascular Surgery [phone] with any concerns. Anticoagulation: Warfarin (Coumadin initiated) [...] the cardiac rehab program. Patient referred to: [facility] [address] [place] [address] Recommend that the patient check with insurance company to verify coverage of the cost of cardiac rehabilitation program visits. COVID-19: Due to the current COVID-19 pandemic, the patient was instructed to monitor for any new fever, cough, shortness of breath, sore throat, diarrhea, respiratory distress, or chills or muscle aches. Theyare to contact [facility] COVID-19 nurse line ([phone]) with any concerns. Reviewed the best measures [...] covers your nose and mouth OUTPATIENT FOLLOWUP [facility] Appointments: Scheduled Appointments 10/03/2023 1:30 PM [facility] Cardiovascular Surgery For appointment details refer to your Patient Appointment Guide. Outside [facility] Appointments: Consults and Follow-ups to Schedule Take a copy of this after visit summary to your appointment(s). [place], [place] October 01, 2023 - Sunday -- 1:15 Arrival - INR blood test at [facility]. October 01, 2023 - Sunday -- 2:10 Arrival - Hospital Follow-Up with, primary care provider Dr. Cresencio Medina, at [facility]. RECOMMENDATIONS: *A referral for a Hand Picker will need to be placed by your PCP, please schedule this visit 1-3 months after discharge. [facility] You may have outpatient appointments at [facility] that changed during your hospitalization. Referto your [facility] Patient Appointment Guide (PAG) for the most current schedule of appointments and detailed instructions of tests/procedures. Call [phone], if you did not receive an PAG or need to CANCEL any [facility] appointment(s). DISCHARGE MEDICATIONS: At the time of dismissal, pain medications (examples include oxycodone, Dilaudid, Tramadol, etc.)will be prescribed to you if needed. Duration will be determined on a kbsz-ch-vbjg basis and will not exceed 2 weeks. [...] M.P.H. Primary Jenny Stanford M.B., B.Ch., B.A.O. Senior Accountant Cpa Dismissal Vitals: Admission Weight: 85.8 kg Blood [...] 1.3 cm atrial appendage without mural thrombus. Health Information Clerk sections are submitted for microscopy in cassette A1. Grossed by Teresa Qureshi M.S., PA([facility]). B. Received fresh labeled with the [...] up to 0.2 cm in greatest size. Health Information Clerk sections are submitted for microscopy in cassette B1, following decalcification. Grossed by Teresa Qureshi M.S., GEORGE([facility]). Block Summary A Heart, left atrial appendage [...] were provided to the patient and caregiver(s). Y LEVEL BUSINESS ANALYST documented in this encounter Discharge Instructions * Discharge Instructions* Anatoliy Iqbal - 09/26/2023 8:49 AM ENTRY LEVEL BUSINESS ANALYST You were discharged from the [facility] Cardiovascular Surgery - [facility] Service. Please identify this service name if you call with questions after hospitalization. Y LEVEL BUSINESS ANALYST documented in this encounter Medications at Time [...] M.H.A., R.N., GRISEL - 09/26/2023 2:04 PM ENTRY LEVEL BUSINESS ANALYST SUBJECTIVE manager strategic Eloisa spoke with Mrs. Harris after nursing informed CM that patient no longer wants a senior care facility. The patient has talked with his son and daughter and they will providecare for him at home. OBJECTIVE To have a decision made by patient and family about already accepted senior care facility versus home with family. ASSESSMENT / PLAN Mr. Harris will now discharge home with family . SNF has been cancelled and medical team is aware. Damon Kraus, Alexis, RSammi, GRISEL 09/26/23 Y LEVEL BUSINESS ANALYST * Neelam Villalobos O.T., O.Hamida - 09/26/2023 1:43 PM CST Occupational Therapy Acute Hospital Inpatient Treatment SUBJECTIVE Patient's Name: Jong Emilia Steven Referring/Attending Provider: Sarah Miller M.D. Medical Diagnosis: Stenosis Aortic Valve Acquired [I35.0] Acquired Aortic Valve Disorder [I35.9] Reason for Referral: Occupational Therapy Evaluation and Treatment OT general acute Onset Date: 09/19/23 Payor: [facility] / Plan: AARP MEDICARE ADVANTAGE [place] PPO [...] Education provided today: as noted Outcome Measures AM-[facility] Inpatient Short Form: Putting on and taking [...] Standardized Score: 51.12 Interpretation: Clinicians answer the AM-[facility] Inpatient Short Form based on observed patient [...] (min): 15 min Neelam Villalobos O.T., O.TRomeo Y LEVEL BUSINESS ANALYST * Aspen Greene PJarrettTJanae - 09/26/2023 1:32 PM CST Physical Therapy Inpatient Treatment Note SUBJECTIVE Patient's Name: Jong Harris Referring/Attending: Sarah Miller M.D. Medical Diagnosis: Stenosis Aortic Valve Acquired [I35.0] Acquired Aortic Valve Disorder [I35.9] Reason for Referral: PT Evaluate and Treat General PT acute Onset Date: 09/19/23 Payor: [facility] / Plan: AARP MEDICARE ADVANTAGE [place] PPO [...] AM-PAC Basic Mobility (V.2) Raw Score: 24 AM-[facility] Basic Mobility (V.2) Standardized Score: 57.68 Interpretation: Clinicians answer the -[facility] Inpatient Short Form based on observed patient [...] Next Inpatient Appointment: 09/27/23 PT Plan Comments: [place] with ambulation. Treatment interventions may include: Treatment/Interventions: Therapeutic exercise, Therapeutic functional activity, Neuromuscular re-education, Gait training INTERNATIONAL BANKER Visit Trackin Billing: Time Spent with Patient Therapeutic Interventions Gait Training (min): 20 min Therapeutic Activity (min): 20 min Time Tracking Total Timed Units (min): 40 min Total Treatment Time (min): 40 min Aspen Greene P.T.A. Y LEVEL BUSINESS ANALYST Associated attestation - Lida Woodward P.T., D.P.T. - 09/27/2023 11:06 AM ENTRY LEVEL BUSINESS ANALYST The patient has dismissed from the hospital. [...] stable and planned to discharge to a senior care facility on 09/26. 24 Hour Events: Jong [...] Glomerular Filtration Rate (GFR) 30 To 44 ([facility]) #3 Hyperlipidemia On Treatment #4 Benign Prostatic Hyperplasia Without Obstruction #5 Atrial Fibrillation Paroxysmal ([facility]) #6 Diabetes Mellitus Type 2 ([facility]) #7 Anemia In Chronic Kidney Disease #8 Hemiplegia Dominant Side Right ([facility]) #9 Hypertension Essential Primary #10 Stroke Cerebrovascular Accident Personal History #11 Coronary Arterial Bypass Graft Status Post Personal History #12 Prosthesis Aortic Valve #13 Coronary Artery Disease Without Angina Pectoris #14 Anemia Posthemorrhagic Acute (Blood Loss Anemia) #15 Failure Renal Acute (Acute Kidney Injury) ([facility]) #16 Hyperkalemia #17 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 #18 Therapy Senior Care Antiplatelet #19 Device Cardiac Status Post #20 [...] of care of this patient with the oracle financials consultant surgeon, Dr. Miller. Anticipated dismissal date: 09/27. Anticipated destination: SNF. PT/OT following. Barriers to discharge: MAJNEET Facility placement Medication reconciliation completed. Y LEVEL BUSINESS ANALYST * Eloisa Oro M.S.N., M.H.A., R.N., [facility] - 09/26/2023 7:44 AM ENTRY LEVEL BUSINESS ANALYST The patient is being prepared to discharge on 09/26/2023 at if medically ready for transfer. Contact CASE MANAGEMENT if time needs to be changed. Transportation will be provided by family. . Destination - Admitted Since 09/19/2023 Service Provider Selected Services Address Phone Fax Patient Preferred [facility] [address] [facility] [phone] -- Contact: Admissions Transportation oxygen: No oxygen [...] be completed. - Will continue to follow. Y LEVEL BUSINESS ANALYST * Ginette Greene P.A.Adrianna., M.S. - 09/25/2023 [...] Glomerular Filtration Rate (GFR) 30 To 44 ([facility]) #3 Hyperlipidemia On Treatment #4 Benign Prostatic Hyperplasia Without Obstruction #5 Atrial Fibrillation Paroxysmal ([facility]) #6 Diabetes Mellitus Type 2 ([facility]) #7 Anemia In Chronic Kidney Disease #8 Hemiplegia Dominant Side Right ([facility]) #9 Hypertension Essential Primary #10 Stroke Cerebrovascular Accident Personal History #11 Coronary Arterial Bypass Graft Status Post Personal History #12 Prosthesis Aortic Valve #13 Coronary Artery Disease Without Angina Pectoris #14 Anemia Posthemorrhagic Acute (Blood Loss Anemia) #15 Failure Renal Acute (Acute Kidney Injury) ([facility]) #16 Hyperkalemia #17 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 #18 Therapy Senior Care Antiplatelet #19 Device Cardiac Status Post #20 [...] of care of this patient with the oracle financials consultant surgeon, Dr. Miller. Anticipated dismissal date: 09/26. Anticipated destination: SNF. PT/OT following. Barriers to discharge: MANJEET Facility placement Medication reconciliation completed. Y LEVEL BUSINESS ANALYST * Yun Childs M.S.N., R.N. - 09/25/2023 2:07 PM CST SUBJECTIVE The outsole caser met with the patient and his to discuss the accepted and pending referrals. The patient's asked the outsole caser to call the [facility] for possibility of taking patient because it is their first preference. [facility] message for [...] following plan. Patient's anticipated discharge disposition is: [facility] Facility Referrals sent. [place] [facility] sent to [facility]. Transportation upon dismissal will be provided by family-- . legal administrative secretary encouraged the patient to reach out with any questions/concerns. Damon Moreno, R.N. 09/25/23 Y LEVEL BUSINESS ANALYST * Lida Woodward P.T., Emilia.P.T. - 09/25/2023 11:42 AM CST Physical Therapy Inpatient Treatment Note SUBJECTIVE Patient's Name: Jong Harris Referring/Attending: Sarah Miller M.D. Medical Diagnosis: Stenosis Aortic Valve Acquired [I35.0] Acquired Aortic Valve Disorder [I35.9] Reason for Referral: PT Evaluate and Treat PT eval and treat cardiac Onset Date: 09/19/23 Payor: [facility] / Plan: AARP MEDICARE ADVANTAGE [place] PPO [...] needs met and questions answered. Outcome Measures [facility] Inpatient Short Form: -[facility] Basic Mobility (V.2) How much help from [...] 3-5 steps with a railing?: A Little -[facility] Basic Mobility (V.2) Raw Score: 20 -PAC Basic Mobility (V.2) Standardized Score: 43.99 Interpretation: Clinicians answer the -[facility] Inpatient Short Form based on observed patient [...] (min): 20 min Lida Woodward P.T., D.P.T. Y LEVEL BUSINESS ANALYST * Pamela Medina Pharm.DJarrett, R.Ph. - 09/25/2023 [...] the hospital. Pamela Medina Pharm.D., R.Ph. Contact [phone] with any questions about this note. Y LEVEL BUSINESS ANALYST * Pamela Medina Pharm.D., R.Ph. - 09/25/2023 10:15 AM CST Clinical Pharmacist Progress Note Jong Harris is a 73 y.o. male admitted on 09/19/2023 who [id number]. Procedures (current encounter): 09/19: CABG [...] seble lasix 40 mg BID Neuro: continues INTERNATIONAL BANKER ropinirole. Endo: BG goal < 180, DCS following and has SSI available, has been intermittently hyperglycemic.Advancing diet as tolerated. Recommend starting insulin glargine 5 units daily. MISC: persistent hiccups, trialing PRN baclofen 2.5 mg TID. Would recommend trialing metoclopramide5 mg Q 8 hours (renally adjusted) instead due to less risk of COMMERCIAL HVAC SERVICE TECHNICIAN depression Prophylaxis: heparin subQ/warfarin, PPI (home med), +BR Home scheduled meds on hold: cholecalciferol, cyanocobalamin, ferrous sulfate, metformin Pamela Medina Pharm.D., R.Ph. Y LEVEL BUSINESS ANALYST * Laila Basurto P.A.-C. - 09/24/2023 3:32 [...] Glomerular Filtration Rate (GFR) 30 To 44 ([facility]) #6 Hyperlipidemia On Treatment #7 Benign Prostatic Hyperplasia Without Obstruction #8 Atrial Fibrillation Paroxysmal ([facility]) #9 Diabetes Mellitus Type 2 ([facility]) #10 Anemia In Chronic Kidney Disease #11 Hemiplegia Dominant Side Right ([facility]) #12 Hypertension Essential Primary #13 Stroke Cerebrovascular Accident Personal History #14 Anemia Posthemorrhagic Acute (Blood Loss Anemia) #15 Failure Renal Acute (Acute Kidney Injury) ([facility]) #16 Hyperkalemia #17 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 #18 Therapy Funding Analyst Antiplatelet #19 Device Cardiac Status Post #20 [...] of care of this patient with the oracle financials consultant surgeon, Dr. Miller. Anticipated dismissal date: [...] May require homegoing oxygen Medication reconciliation completed. Y LEVEL BUSINESS ANALYST * Lida Woodward P.T., D.P.T. - 09/24/2023 3:28 PM CST 09/24/23 1528 Reason Therapy Missed Reason Therapy Missed At test/procedure Patient away at ECHO.. PT to follow up as able. Y LEVEL BUSINESS ANALYST * Neelam Villalobos O.T., ZakiTRomeo - 09/24/2023 1:56 PM CST Occupational Therapy Acute Hospital Inpatient Treatment SUBJECTIVE Patient's Name: Jong Harris Referring/Attending Provider: Sarah Miller M.D. Medical Diagnosis: Stenosis Aortic Valve Acquired [I35.0] Acquired Aortic Valve Disorder [I35.9] Reason for Referral: Occupational Therapy Evaluation and Treatment OT eval and treat cardiac Onset Date: 09/19/23 Payor: [facility] / Plan: [facility] MEDICARE ADVANTAGE [place] PPO / Product Type: PPO / History [...] Discussed patient's care with PT Outcome Measures [facility] Inpatient Short Form: Putting on and taking [...] Standardized Score: 40.22 Interpretation: Clinicians answer the [facility] Inpatient Short Form based on observed patient [...] Assistance with housekeeping, Assistance withtransportation, Assistance with personal financial advisor, Assistance with showering/bathing Recommended Adaptive Equipment - [...] (min): 10 min Neelam Villalobos O.T., O.T.D. Y LEVEL BUSINESS ANALYST * Eze Sevilla R.R.T., L.R.T. - 09/24/2023 [...] Cory Sevilla R.R.T., EricaR.TJarrett 09/24/23 1:47 PM ENTRY LEVEL BUSINESS ANALYST Y LEVEL BUSINESS ANALYST * Pamela Medina Pharm.DJarrett, R.Ph. - 09/24/2023 [...] the hospital. Pamela Medina Pharm.D., R.Ph. Contact [phone] with any questions about this note. Y LEVEL BUSINESS ANALYST * Pamela Medina Pharm.D., R.Ph. - 09/24/2023 10:19 AM CST Clinical Pharmacist Progress Note Jong Harris is a 73 y.o. male admitted on 09/19/2023 who now presents to [id number]-P forpostoperative care. Procedures (current encounter): 09/19: CABG [...] inaccurate UOP d/t undocumented voids Neuro: continues INTERNATIONAL BANKER ropinirole. Endo: BG have been < 180, DCS following and has SSI available. Prophylaxis: heparin subQ/warfarin, PPI (home med) Home scheduled meds on hold: cholecalciferol, cyanocobalamin, ferrous sulfate, metformin Pamela Medina Pharm.D., R.Ph. Y LEVEL BUSINESS ANALYST * Eloisa Oro M.S.N., Saul., R.N., GRISEL - 09/24/2023 10:19 AM ENTRY LEVEL BUSINESS ANALYST SUBJECTIVE legal administrative secretary Eloisa met with Mr and Mrs Harris to discuss the need for senior care rehab at discharge. A list of insurance approved facilities was given. The below referrals have been sent. OBJECTIVE To obtain referrals for senior care facilities at discharge. ASSESSMENT / PLAN Service Provider Request Status Selected Services Address Phone Fax Patient Preferred [facility] Pending - Request Sent N/A [address], [facility] [address] [phone] -- [facility] - Request Sent N/A [address] [facility] [address] [phone] -- [facility] - SNF Pending - Request Sent N/A [address] [facility] [address] [facility] [address] [phone] -- [facility] Declined [facility] is CLOSED N/A [address] [facility] [address] -- Current Capacity last updated by [place] on 08/15/2023 1413 [facility] has issued notice of closure. We cannot accept any new admissions. We will be having a short-term, private pay option in assisted living for clients who need PT/OT/ST (will be billed to their insurance). Referrals for this area need to go to [facility] living. This area will open 10/12/2023 [facility] Declined Facility cannot provide for patient's needs N/A [address] [place] [address] -- -- Damon Kraus, Saul., R.N., GRISEL 09/24/2023 Y LEVEL BUSINESS ANALYST * Laila Basurto P.A.-C. - 09/23/2023 4:38 [...] (HCC) #16 Hyperkalemia #17 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 #18 Therapy Senior Care Antiplatelet #19 Thrombocytopenia Secondary #20 Device Cardiac [...] of care of this patient with the oracle financials consultant surgeon, Dr. Miller. Anticipated dismissal date: 09/23-09/24. Anticipated destination: Home self-care or SNF. PT/OT following- patient has residual right-sided weakness from his stroke and will not have available assistance at home after his 's surgery next week. SW following for disposition planning. Barriers to discharge: INR Medication optimization MANJEET Dismissal testing May require homegoing oxygen Medication reconciliation completed. Y LEVEL BUSINESS ANALYST * Merle Reyes, PharmJarrettD., R.Ph. - 09/23/2023 2:17 PM CST Clinical Pharmacist Progress Note Jong Harris is a 73 y.o. male admitted on 09/19/2023 who now presents to [id number]/614-P forpostoperative care. Procedures (current encounter): 09/19: CABG [...] Renal: tamsulosin and finasteride resumed Neuro: continues INTERNATIONAL BANKER ropinirole. Endo: BG have been < 180, DCS following and has SSI available. Prophylaxis: heparin subQ/warfarin, PPI (home med) Home scheduled meds on hold: cholecalciferol, cyanocobalamin, ferrous sulfate, metformin Merle Reyes Pharm.D., R.Ph. Y LEVEL BUSINESS ANALYST * Marcela Lee APRN C.N.P., M.S.N. - [...] PRBC this morning for Hgb of 7.3. Y LEVEL BUSINESS ANALYST * Laila Basurto P.A.-C. - 09/22/2023 4:00 [...] removal. An actuation system was not present. Y LEVEL BUSINESS ANALYST * Laila Basurto P.A.-C. - 09/22/2023 3:33 [...] previous stroke. They are considering SNF vs [facility] for discharge planning. OBJECTIVE I have [...] Glomerular Filtration Rate (GFR) 30 To 44 ([facility]) #3 Hyperlipidemia On Treatment #4 Benign Prostatic Hyperplasia Without Obstruction #5 Atrial Fibrillation Paroxysmal ([facility]) #6 Diabetes Mellitus Type 2 ([facility]) #7 Anemia In Chronic Kidney Disease #8 Hypertension Essential Primary #9 Stroke Cerebrovascular Accident Personal History #10 Coronary Arterial Bypass Graft Status Post Personal History #11 Prosthesis Aortic Valve #12 Coronary Artery Disease Without Angina Pectoris #13 Anemia Posthemorrhagic Acute (Blood Loss Anemia) #14 Failure Renal Acute (Acute Kidney Injury) ([facility]) #15 Hyperkalemia #16 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 #17 Therapy Funding Analyst Antiplatelet Neuro: No acute concerns. Pain is [...] No sign of active bleed. Platelets 129 [id number]. ID/Skin: No acute concerns. Post-operative antibiotic regimen complete. Maintain sternal incision wound vac until POD 5. Afebrile, WBC WNL. Will remove RIJ this evening. Continue LEATHA wraps to lower extremities when out of bed. Code Status: Full Code Disposition: Continue to monitor on the PCU. I directly examined/reviewed the plan of care of this patient with the oracle financials consultant surgeon, Dr. Miller. Anticipated dismissal date: 09/23-09/24. Anticipated destination: Pending PT/OT evaluation. PT/OT consulted for discharge planning- patient has residual right- sided weakness from his stroke and will not have available assistance at home after his 's surgery next week. SW following for disposition planning. Barriers to discharge: INR Medication optimization MANJEET Dismissal testing May require homegoing oxygen Medication reconciliation completed. Y LEVEL BUSINESS ANALYST * Purvi Wu, DJarrett, R.Ph. - 09/22/2023 [...] from the hospital. Purvi Wu Pharm.D., R.Ph. Y LEVEL BUSINESS ANALYST * Dwayne Lew Pharm.D., R.Ph. - 09/21/2023 10:04 AM ENTRY LEVEL BUSINESS ANALYST Clinical Pharmacist Progress Note Jong Harris is a 73 y.o. male admitted on 09/19/2023 who now presents to [id number]-P forpostoperative care. Procedures (current encounter): 09/19: CABG [...] Allen removed. Neuro: pain well controlled, continues INTERNATIONAL BANKER ropinirole. Endo: BG have been < 180, DCS following and has SSI available. Prophylaxis: heparin subQ, PPI (home med) Home scheduled meds on hold: cholecalciferol, cyanocobalamin, ferrous sulfate, metformin Matthias Lew Pharm.D., R.Ph. Y LEVEL BUSINESS ANALYST * Enmanuel Edward P.A.-C. - 09/21/2023 4:19 [...] Glomerular Filtration Rate (GFR) 30 To 44 ([facility]) #5 Hyperlipidemia On Treatment #6 Benign Prostatic Hyperplasia Without Obstruction #7 Atrial Fibrillation Paroxysmal (HCC) #8 Diabetes Mellitus Type 2 (HCC) #9 Anemia In Chronic Kidney Disease #10 Hypertension Essential Primary #11 Stroke Cerebrovascular Accident Personal History #12 Coronary Artery Disease Without Angina Pectoris #13 Anemia Posthemorrhagic Acute (Blood Loss Anemia) #14 Failure Renal Acute (Acute Kidney Injury) ([facility]) #15 Hyperkalemia #16 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 Neuro: Sleep: Melatonin [...] care of this patient with the critical care asst. Anticipated dismissal date: TBD. Anticipated destination: Home [...] risk. Continue to follow PROTECT algorithm protocol. Y LEVEL BUSINESS ANALYST * Kari oHok MDIV - 09/20/2023 1:58 PM CST [facility] Spiritual Care Progress Note Patient: Jong Harris Age:73 y.o. Location: [id number]/566-P Reason(s) for encounter: Spiritual Care contact to [...] to verbally process surfacing emotions. Spiritual Assessment Congregational Identification / Spiritual Practices: [employer] He attempted to find the name of his yazidi but could not remember. Coping and support: His and son had left before our visit. He attempted to use avoidance, changing the topic, and humor to cope with tough questions and good educational guidance counselor. Patient named his avoidant coping skills [...] current medical condition and life stage. Provided voodoo reading material to sustain patient's truman/practice while in hospital Facilitated voodoo/spiritual practices (prayer, blessing, sacred texts, voodoo item) with theaim to reinforce patient's spiritual [...] requested. Chaplains can be contacted by paging [phone] ([place]) or [phone] (Pentecostal). Y LEVEL BUSINESS ANALYST * Dwayne Lew, Pharm.D., R.Ph. - 09/20/2023 10:02 AM ENTRY LEVEL BUSINESS ANALYST Clinical Pharmacist Progress Note Jong Harris is a 73 y.o. male admitted on 09/19/2023 who now presents to [id number]/566-P forpostoperative care. Procedures (current encounter): 09/19: CABG [...] cyanocobalamin, ferrous sulfate, metformin Pharm. KarlaDJarrett, R.Ph. Y LEVEL BUSINESS ANALYST * Bryce Wills M.D. - 09/20/2023 7:06 [...] type 2, was on metformin at home (ZbO1m=1.2) Heme: extensive bleeding in OR, required plt, cryo and Kcentra, normal coagulation parameters now, will follow up on labs and watch for chest tube output Will proceed with anticoagulation per cardiac surgery team recommendations ID: continue perioperative antibiotics PPx: pantoprazole prophylaxis T/L/D: RIJ/PA catheter, 3 tubes, Tiffany Wills ICU Fellow [id number] Y LEVEL BUSINESS ANALYST Associated attestation - Reji Kang M.D. - 09/20/2023 5:43 PM ENTRY LEVEL BUSINESS ANALYST I saw and evaluated the patient, participating [...] Present Illness: The patient is located in [facility], room 730. I have seen and evaluated [...] Epicardial wires were/were not placed with a nulato rhythm of SR. Ultimately, due to persistent [...] Full Code Critical care time: 45 min Y LEVEL BUSINESS ANALYST * Yuriy Wilson, Ryan.R.Anali., L.R.T. - 09/19/2023 5:18 PM CST 1710: Pt. Arrived from OR intubated w/ 8.0 ett , secured at 22cm @ lip with twill tie. Pt. Placed on ASV 100%, peep 8, fio2 50%. Will adjust settings and wean as appropriate based on patients condtion. Y LEVEL BUSINESS ANALYST * Garrett Bahena PharmJarrettD., R.Ph. - 09/19/2023 [...] 130/80 CKD 3b Garrett Bahena Pharm.D., R.Ph. Y LEVEL BUSINESS ANALYST documented in this encounter H&P Notes * Jenny Stanford M.B., B.Ch., B.A.O. - 09/19/2023 6:36 AM CST INTERVAL HISTORY AND PHYSICAL PRE-PROCEDURE UPDATE H&P reviewed. The patient was examined and there are no significant changes to the H&P. Misty Howe, BKolby., B.A.O. Y LEVEL BUSINESS ANALYST Source Note - Elvi Lundberg MPAS PArnaldo. - 09/18/2023 9:45 AM ENTRY LEVEL BUSINESS ANALYST Jong Harris : 1950 Visit Date: 09/18/23 REFERRING PHYSICIAN: No ref. provider found Home ad terminal makeup operator: [facility] primary care provider: Dr. Adam Cotto [place], [place] SUBJECTIVE CHIEF COMPLAINT / REASON FOR [...] 08/19/2023 for additional information. Patient presented to [place] ED for chest discomfort on 08/19/2023. Patient [...] CORONARY ANGIOGRAPHY; Surgeon: Ezequiel Jack M.D.; Location: [facility] Family History Problem Relation Age of [...] 2 For postoperative care: Consult social media strategist on the inpatient setting, patient's is having [...] 3596) pamphlet; Your guide to Cardiac Surgery [id number]; Surgical Site Infection: Reducing Your Risk (MC 6471); Central Venous Catheter Infection: Reducing Your Risk ([id number]). Patient instructed to report to [facility] for Bactroban prescription. Application [...] of the patient today. Time includes both xvg-ozqi-fe-face ojmzesc-zq-gqxq patient care. MADHAV Chong, P.A.-C. Y LEVEL BUSINESS ANALYST documented in this encounter Consult Notes * [...] T2DM, RLS Patient was not available at medical technical writer's attempts to visit today. Per EMR, [...] on 09/26/23. Estimated Needs: Total Calorie Needs: 4429-4195 calories/day Method to Estimate Energy Needs: Early-St Jeor ( basal to basal + 10% [...] about patient's nutritional care please contact pager [phone] on weekdays 07:30-16:00 or [phone] on weekends/holidays. Y LEVEL BUSINESS ANALYST * Ginette Cervantes, [facility] - 09/24/2023 10:41 AM CSTAssociated Order(s): IP [...] the cardiac rehab program. Patient referred to: [facility] [place] [id number] Recommend that the patient check with insurance company to verify coverage of the cost of cardiac rehabilitation program visits. 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 Glomerular Filtration Rate (GFR) 30 To 44 ([facility]) #3 Hyperlipidemia On Treatment #4 Benign Prostatic Hyperplasia Without Obstruction #5 Atrial Fibrillation Paroxysmal ([facility]) #6 Diabetes Mellitus Type 2 ([facility]) #7 Anemia In Chronic Kidney Disease #8 Hemiplegia Dominant Side Right ([facility]) #9 Hypertension Essential Primary #10 Stroke Cerebrovascular Accident Personal History #11 Coronary Arterial Bypass Graft Status Post Personal History #12 Prosthesis Aortic Valve #13 Coronary Artery Disease Without Angina Pectoris #14 Anemia Posthemorrhagic Acute (Blood Loss Anemia) #15 Failure Renal Acute (Acute Kidney Injury) ([facility]) #16 Hyperkalemia #17 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 #18 Therapy Senior Care Antiplatelet #19 Thrombocytopenia Secondary #20 Device Cardiac Status Post Social History Marital Status: Lissy Finance/Insurance Primary insurance: [facility] MEDICARE ADVANTAGE [facility] Secondary insurance: N/A Does the patient have any financial concerns? no benefits: No Advance Directives Legal Decision Maker: Self Advance Directives Status: Not completed OBJECTIVE Baseline Functional Status Baseline Activities of Daily Living Mobility: Independent Dressing: Independent Feeding: Independent Bathing: Independent Grooming: Independent Toileting: Independent Behavior: Appropriate, Pleasant, Calm, Cooperative, Oriented Communication: Can write, Talks, Understands speaking, Understands Barbadian, Reads Shopping: Independent Transportation: Independent to drive [...] Fanny or Lissy Phone Number for Ride/Caregiver: [phone] Anticipated Discharge Destination: [facility] Facility ASSESSMENT / PLAN Assessment: The legal administrative secretary met with Jong Harris to discuss his current hospitalization and home going needs. The patient was unaccompanied. The patient was a reliable historian. The role of legal administrative secretary was reviewed. The patient reviewed his prior level of care and support system. The patient receives support from his , daughter, and son. Mr. Harris lives in a 1st floor apartment with his Lissy. The patients will need knee surgery in 4 days and they have requested the patient go to a senior care facility for PT/OT rehab if possible, referrals [...] responsibilities have previously been completed by patient. legal administrative secretary discussed the patient's potential needs at dismissal [...] following new service(s) to be set up: senior care facility. After reviewing the patient's chart and meeting with the patient, the legal administrative secretary deemed the LACE+/readmission questions were not necessary. The patient reports understanding that he will dismiss from the hospital when medically stable. Pending hospital course and medical readiness, no barriers to dismissal have been identified at this time. Plan: The patient agrees with the following plan. Patient's anticipated discharge disposition is: [facility] Facility Planning needs to be initiated. Transportation upon dismissal will be provided by family--Son or daughter . legal administrative secretary recommended reaching out to family, friends, and neighbors for assistance. legal administrative secretary provided information regarding the dismissal process. legal administrative secretary placed or requested the following hospital-based consult orders and/or referrals: None. legal administrative secretary will continue to assess for homegoing needs with the interdisciplinary team. legal administrative secretary encouraged the patient to reach out with any questions/concerns. Care Management will continue to follow. Signed by: Damon Kraus, Alexis, R.NJarrett, GRISEL 09/24/2023 Y LEVEL BUSINESS ANALYST * Neelam Villalobos O.T., O.TRomeo - 09/23/2023 10:14 AM CST Occupational Therapy Acute Hospital Inpatient Evaluation/Treatment SUBJECTIVE Patient's Name: Jong Harris Referring/Attending Provider: Sarah Miller M.D. 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 Prior Mobility/Functional Transfers Level of [place]: Independent Home Living Type of Home: Apartment Home Access: Stairs to enter with rails Entrance Stairs: Rails: Left Entrance Stairs: Number of Steps: 6 Bathroom Shower/Tub: Tub/shower unit Tub/shower unit location: Main floor Bathroom Toilet: Standard Home Living Comments: would have to side shuffle with a walker Home Equipment Home Adaptive Equipment: Technical Service Representative Other DME Equipment : (flat bed) Bathroom Equipment: Grab bars in shower, Tub transfer bench Family/Caregiver Present: Yes (son) Patient/Caregiver Goals: None stated Patient Comments: Patient presented on toilet, having just completed mobility in hallway and to bathroom with head refrigeration engineer. Patient with no complaints of pain, and [...] Handouts provided today: Recovery From Heart Surgery [id number] Team Communication: Patient's nurse was contacted and patient's status was discussed, Discussed patient's care with PT Co-treatment with: Physical Therapy (Co-treatment session with PT, The patient benefited from having two skilled therapists present to progress mobility safely. OT addressed functional mobility as itrelates to completing activities of daily living.) Outcome Measures [facility] Inpatient Short Form: Putting on and taking [...] Standardized Score: 40.22 Interpretation: Clinicians answer the -[facility] Inpatient Short Form based on observed patient [...] Assistance with housekeeping, Assistance withtransportation, Assistance with personal financial advisor, Assistance with showering/bathing Recommended Adaptive Equipment - [...] (min): 28 min Neelam Villalobos O.T., O.TRomeo Y LEVEL BUSINESS ANALYST * Ximena Green PJarrettTJarrett, D.P.T. - 09/23/2023 10:14 AM CST Physical Therapy Inpatient Evaluation/Treatment SUBJECTIVE Patient's Name: Jong Harris Referring/Attending Provider: Sarah Miller M.D. 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 Light assist with the walker [facility]. Discussed patient's fall with nursing yesterday. Patient [...] 3-5 steps with a railing?: A Little -[facility] Basic Mobility (V.2) Raw Score: 18 -[facility] Basic Mobility (V.2) Standardized Score: 41.05 Interpretation: Clinicians answer the -[facility] Inpatient Short Form based on observed patient [...] (min): 26 min Ximena Green P.T., D.P.T. Y LEVEL BUSINESS ANALYST * Vipul Garcia P.A.-C. - 09/21/2023 12:34 [...] primary service with questions regarding blood sugars. Y LEVEL BUSINESS ANALYST documented in this encounter Nursing Notes * Valorie Osman R.N. - 09/26/2023 2:15 PM CST Patient discharging home to self care. long-term placement canceled per patients request. Education complete. All medications and future appointments reviewed with patient. All questions answered.Vital signs stable. IVs removed. Patient transported by [facility] home. Electronically signed by: Valorie Osman R.N. 09/26/23 3:50 PM ENTRY LEVEL BUSINESS ANALYST Y LEVEL BUSINESS ANALYST * Ar Mills R.N. - 09/26/2023 5:17 [...] by: Ar Mills R.N. 09/26/23 5:19 AM ENTRY LEVEL BUSINESS ANALYST Y LEVEL BUSINESS ANALYST * Kelsey Downing R.N. - 09/25/2023 5:46 PM CST Shift Goals: Clinical Goals for the Shift: Dismissal planning Identify possible barriers to meeting goals/advancing plan of care: None End of Shift Summary: Dismissal education progressing well. Plan is to dismiss to SNF on Sunday. Denies questions at this time. Y LEVEL BUSINESS ANALYST * Ar Mills R.N. - 09/25/2023 5:37 [...] by: Ar Mills R.N. 09/25/23 5:39 AM ENTRY LEVEL BUSINESS ANALYST Y LEVEL BUSINESS ANALYST * Amita Mercado R.N. - 09/24/2023 6:42 [...] Goal: Maintain a safe environment Outcome: Progressing Y LEVEL BUSINESS ANALYST * Radha Lara R.N. - 09/23/2023 5:20 PM CST Shift Goals: Clinical Goals for the Shift: Education and ambulation Identify possible barriers to meeting goals/advancing plan of care: Tiredness End of Shift Summary: Patient ambulated to the bathroom multiple times throughout the day. He was able to ambulate in the day three times with encouragement. The patient required a rest prison through the walk. Education was started while the was present. .Electronically signed by: Radha Lara R.N. 09/23/23 5:23 PM ENTRY LEVEL BUSINESS ANALYST Problem: KNOWLEDGE DEFICIT Goal: Patient/family/caregiver demonstrates understanding of disease process, treatment plan, medications, and discharge instructions Outcome: Progressing Problem: SKIN/TISSUE INTEGRITY Goal: Skin/Tissue integrity maintained or improved Outcome: Progressing Problem: DISCHARGE PLANNING Goal: Patient discharge needs identified Outcome: Progressing Y LEVEL BUSINESS ANALYST * Julienne Harding R.N. - 09/23/2023 4:13 [...] for hemodynamic support. Pain control remains adequate. Y LEVEL BUSINESS ANALYST * Julienne Harding R.N. - 09/22/2023 11:50 [...] bed. Neuro status intact at this time. Y LEVEL BUSINESS ANALYST * Elieser Fong - 09/22/2023 6:26 PM [...] Recent CPT: Elieser Fong 09/22/23 6:27 PM ENTRY LEVEL BUSINESS ANALYST Under the direction of Lazara Lopez, R.R.T., L.R.T. Y LEVEL BUSINESS ANALYST * Vipin Catalan, R.R.T., L.R.T. - 09/21/2023 2:24 AM CST Patient is a 73 y.o. male admitted on 09/19/2023 Alert Information: Plan of Care: Assess respiratory needs Principal Problem Stenosis Aortic Valve Acquired Oxygen Therapy $Delivery Method: Nasal cannula Arterial Line 09/19/23 Left Radial (Active) Placement Date/Time: 09/19/23 (c) 20 Procedural Pause Completed: Yes Catheter Time Out [...] L PCO2 ART 43 PH ART 7.37 Y LEVEL BUSINESS ANALYST * Kev Duke R.R.Anali., L.R.T. - 09/20/2023 [...] Left Radial (Active) Placement Date/Time: 09/19/23 (c) 0472 Procedural Pause Completed: Yes Catheter Time Out [...] PH ART 7.37 Skin integrity checked: intact. Y LEVEL BUSINESS ANALYST * Yuriy Wilson R.R.T., Carlos.R.T. - 09/19/2023 [...] Standard ETT (Active) Placement Date/Time: 09/19/23 (c) 0190 Mask Ventilation: Oral/Nasal airway needed Technique: Directlaryngoscopy, intubation ETT Type: Standard ETT Tube Size: 8 mm Cuffed: Yes Blade Size: Ospina 2 Location: Oral Airway secured at (Initial grover... Arterial Line 09/19/23 Left Radial (Active) Placement Date/Time: 09/19/23 (c) 2890 Procedural Pause Completed: Yes Catheter Time Out [...] PH ART 7.37 Skin integrity checked: good Y LEVEL BUSINESS ANALYST documented in this encounter OR Notes * [...] overweight. Post-op Diagnosis Same as preop A assistant professor of drama actively participated and was necessary for one [...] non pledgetted Prolene suture and a 20 Bahamian DLP arterial cannula. The right atrium was [...] at a pressure 100 mm Hg a quhw094 mL/minute was obtained. We re-dosed the cardioplegia [...] in stable conditions. Sarah Miller M.D., M.P.H. Y LEVEL BUSINESS ANALYST * Brief Op Note - Jenny Stanford M.B., B.Ch., B.A.O. - 09/19/2023 8:59 AM CST BRIEF OP NOTE Procedure(s): REPLACEMENT AORTIC VALVE, POSSIBLE AORTIC ROOT ENLARGEMENT. (On-X Conform 23mm Valve) CORONARY ARTERY BYPASS GRAFT X1, VEIN. LIGATION LEFT ATRIAL APPENDAGE. ISOLATION PULMONARY VEIN. ECHOCARDIOGRAM TRANSESOPHAGEAL Surgeon(s) and Role: * Sarah Miller M.D., M.P.H. - Primary * Jenny Stanford M.B., B.Ch., B.A.O. - Senior Accountant Cpa Anesthesia Type General Pre-operative Diagnosis Stenosis Aortic [...] Implants Implant Name LRB Site No. Used Digital Media Specialist Mfr No. Serial No. Status Type CLP HRZN TI 6 CLP MD KIKA - [id number] N/A Chest 1 [employer] [id number] Implanted Hardware e.g. pins/screws/rods CLP HRZN TI 24 CLP SM RED - [id number] N/A Chest 1 [employer] [id number] Implanted Hardware e.g. pins/screws/rods CLP HRZN TI 24 CLP SM RED - [id number] N/A Chest 1 [employer] [id number] Implanted Hardware e.g. pins/screws/rods FELT SURG TFLN 1X6 - [id number] N/A Chest 1 [employer] [id number] Implanted Hardware e.g. pins/screws/rods CLP HRZN TI 24 CLP KIKA - [id number] N/A Chest 1 [employer] [id number] Implanted Hardware e.g. pins/screws/rods VLV AORT CNF [facility] 23 - [id number] - [id number] N/A Aortic Valve 1 [employer] (Prev. [employer]) [id number] Implanted Cardiac Valve Prosthesis Patient Condition:ICU: Stable Misty Howe, B.Ch., B.A.O. Y LEVEL BUSINESS ANALYST documented in this encounter Miscellaneous Notes * Hospital Course - Ginette Greene P.A.-C., M.S. - 09/20/2023 1:59 AM ENTRY LEVEL BUSINESS ANALYST Jong Harris is a 73 y.o. male [...] M.P.H. Primary Jenny Stanford M.B., B.Ch., B.A.O. Senior Accountant Cpa Dismissal Vitals: Admission Weight: 85.8 kg Blood [...] to the increased Doppler velocities (8.3 g/dL). Y LEVEL BUSINESS ANALYST documented in this encounter Plan of Treatment Upcoming Encounters Date Type Department Care Team (Latest Contact Info) Description 12/21/2023 10:15 AM ENTRY LEVEL BUSINESS ANALYST Clinical Communication Virtual Review in [place], [place] [address] [place] [address] 12/24/2023 2:00 PM ENTRY LEVEL BUSINESS ANALYST Comprehensive Visit Department of Cardiovascular Medicine in [address] [phone] Gudelia Soto M.D. [address] [place] [phone] 01/01/2024 3:45 PM ENTRY LEVEL BUSINESS ANALYST Comprehensive Visit Division of Hematology in [address] [phone] Billy Segal APRN, C.N.P., D.N.P. [address] [place] [address] Pending Results Name Type Priority Associated Diagnoses Date /Time Prepare Red Blood Cells, 2 Units Blood Bank STAT 09/18/2023 9:04 AM ENTRY LEVEL BUSINESS ANALYST Prepare Platelets : 1 Units Blood Bank STAT 09/20/2023 2:30 AM ENTRY LEVEL BUSINESS ANALYST Prepare Red Blood Cells, 2 Units Blood Bank STAT 09/18/2023 9:04 AM ENTRY LEVEL BUSINESS ANALYST Prepare Fresh Frozen Plasma : 1 Units Blood Bank STAT 09/20/2023 2:30 AM ENTRY LEVEL BUSINESS ANALYST Prepare Platelets : 1 Units Blood Bank STAT 09/20/2023 2:30 AM ENTRY LEVEL BUSINESS ANALYST Prepare Pooled Cryoprecipitate : 2 Pools Blood Bank STAT 2022 4:30 AM ENTRY LEVEL BUSINESS ANALYST Prepare Red Blood Cells, 2 Units Blood Bank STAT 09/18/2023 9:04 AM ENTRY LEVEL BUSINESS ANALYST Prepare Platelets : 1 Units Blood Bank STAT 09/20/2023 6:30 AM ENTRY LEVEL BUSINESS ANALYST Scheduled Referrals Name Type Priority Associated Diagnoses Orde r Schedule External referral cardiac rehab program ([facility]) Outpatient Referral Routine Prosthesis Aortic Valve Bypass Coronary Artery Graft Status Post Ordered: 09/24/2023 documented as of this encounter Procedures Procedure Name Priority Date/Time Associated Diagnosis Comments GLUCOSE POCT, B Routine 09/26/2023 11:37 AM ENTRY LEVEL BUSINESS ANALYST GLUCOSE POCT, B Routine 09/26/2023 7:55 AM ENTRY LEVEL BUSINESS ANALYST PROTHROMBIN TIME (PT), P Routine 09/26/2023 6:58 AM ENTRY LEVEL BUSINESS ANALYST CBC WITHOUT DIFFERENTIAL, B Routine 09/26/2023 6:58 AM ENTRY LEVEL BUSINESS ANALYST BASIC METABOLIC PANEL, S/P Routine 09/26/2023 6:58 AM ENTRY LEVEL BUSINESS ANALYST GLUCOSE POCT, B Routine 09/25/2023 8:25 PM ENTRY LEVEL BUSINESS ANALYST GLUCOSE POCT, B Routine 09/25/2023 5:36 PM ENTRY LEVEL BUSINESS ANALYST GLUCOSE POCT, B Routine 09/25/2023 1:13 PM ENTRY LEVEL BUSINESS ANALYST PROTHROMBIN TIME (PT), P Routine 09/25/2023 9:26 AM ENTRY LEVEL BUSINESS ANALYST CBC WITHOUT DIFFERENTIAL, B Routine 09/25/2023 9:26 AM ENTRY LEVEL BUSINESS ANALYST BASIC METABOLIC PANEL, S/P Routine 09/25/2023 9:26 AM ENTRY LEVEL BUSINESS ANALYST GLUCOSE POCT, B Routine 09/25/2023 8:10 AM ENTRY LEVEL BUSINESS ANALYST DX CHEST AP OR PA AND LATERAL 2 VIEWS RAD - Routine (most inpatients and all outpatients) 09/25/2023 7:26 AM ENTRY LEVEL BUSINESS ANALYST ECG Routine 09/25/2023 4:55 AM ENTRY LEVEL BUSINESS ANALYST GLUCOSE POCT, B Routine 09/24/2023 8:33 PM ENTRY LEVEL BUSINESS ANALYST GLUCOSE POCT, B Routine 09/24/2023 4:44 PM ENTRY LEVEL BUSINESS ANALYST NOCTURNAL OXYGEN STUDY - RT Routine 09/24/2023 3:46 PM ENTRY LEVEL BUSINESS ANALYST (TTE) 2D ECHO DOPPLER COLOR Routine 09/24/2023 3:26 PM ENTRY LEVEL BUSINESS ANALYST GLUCOSE POCT, B Routine 09/24/2023 12:43 PM ENTRY LEVEL BUSINESS ANALYST RT TO ARRANGE FOR HOME DME Routine 09/24/2023 11:14 AM ENTRY LEVEL BUSINESS ANALYST GLUCOSE POCT, B Routine 09/24/2023 7:19 AM ENTRY LEVEL BUSINESS ANALYST PROTHROMBIN TIME (PT), P Routine 09/24/2023 6:49 AM ENTRY LEVEL BUSINESS ANALYST CBC WITHOUT DIFFERENTIAL, B Routine 09/24/2023 6:49 AM ENTRY LEVEL BUSINESS ANALYST BASIC METABOLIC PANEL, S/P Routine 09/24/2023 6:49 AM ENTRY LEVEL BUSINESS ANALYST GLUCOSE POCT, B Routine 09/23/2023 9:38 PM ENTRY LEVEL BUSINESS ANALYST GLUCOSE POCT, B Routine 09/23/2023 5:02 PM ENTRY LEVEL BUSINESS ANALYST PROTHROMBIN TIME (PT), P STAT 09/23/2023 3:44 PM ENTRY LEVEL BUSINESS ANALYST HEMOGLOBIN, B STAT 09/23/2023 3:44 PM ENTRY LEVEL BUSINESS ANALYST BASIC METABOLIC PANEL, S/P STAT 09/23/2023 3:44 PM ENTRY LEVEL BUSINESS ANALYST GLUCOSE POCT, B Routine 09/23/2023 12:19 PM ENTRY LEVEL BUSINESS ANALYST DX CHEST AP OR PA AND LATERAL 2 VIEWS RAD - Routine (most inpatients and all outpatients) 09/23/2023 8:44 AM ENTRY LEVEL BUSINESS ANALYST PROTHROMBIN TIME (PT), P Routine 09/23/2023 7:34 AM ENTRY LEVEL BUSINESS ANALYST CBC WITHOUT DIFFERENTIAL, B Routine 09/23/2023 7:34 AM ENTRY LEVEL BUSINESS ANALYST BASIC METABOLIC PANEL, S/P Routine 09/23/2023 7:34 AM ENTRY LEVEL BUSINESS ANALYST HEPATIC FUNCTION PANEL, S Routine 09/23/2023 7:31 AM ENTRY LEVEL BUSINESS ANALYST GLUCOSE POCT, B Routine 09/23/2023 7:24 AM ENTRY LEVEL BUSINESS ANALYST CBC WITHOUT DIFFERENTIAL, B STAT 09/22/2023 11:14 PM ENTRY LEVEL BUSINESS ANALYST BASIC METABOLIC PANEL, S/P STAT 09/22/2023 11:14 PM ENTRY LEVEL BUSINESS ANALYST GLUCOSE POCT, B Routine 09/22/2023 9:29 PM ENTRY LEVEL BUSINESS ANALYST RESPIRATORY ASSESS AND TREAT Routine 09/22/2023 2:00 PM ENTRY LEVEL BUSINESS ANALYST TRANSFUSE RED BLOOD CELLS Routine 09/22/2023 2:00 PM ENTRY LEVEL BUSINESS ANALYST GLUCOSE POCT, B Routine 09/22/2023 11:27 AM ENTRY LEVEL BUSINESS ANALYST GLUCOSE POCT, B Routine 09/22/2023 7:34 AM ENTRY LEVEL BUSINESS ANALYST PROTHROMBIN TIME (PT), P Routine 09/22/2023 7:04 AM ENTRY LEVEL BUSINESS ANALYST CBC WITHOUT DIFFERENTIAL, B Routine 09/22/2023 7:04 AM ENTRY LEVEL BUSINESS ANALYST BASIC METABOLIC PANEL, S/P Routine 09/22/2023 7:04 AM ENTRY LEVEL BUSINESS ANALYST TYPE AND SCREEN Routine 09/22/2023 7:01 AM ENTRY LEVEL BUSINESS ANALYST GLUCOSE POCT, B Routine 09/21/2023 10:52 PM ENTRY LEVEL BUSINESS ANALYST GLUCOSE POCT, B Routine 09/21/2023 7:07 PM ENTRY LEVEL BUSINESS ANALYST RESPIRATORY ASSESS AND TREAT Routine 09/21/2023 2:00 PM ENTRY LEVEL BUSINESS ANALYST GLUCOSE POCT, B Routine 09/21/2023 11:27 AM ENTRY LEVEL BUSINESS ANALYST GLUCOSE POCT, B Routine 09/21/2023 8:50 AM ENTRY LEVEL BUSINESS ANALYST PROTHROMBIN TIME (PT), P STAT 09/21/2023 7:47 AM ENTRY LEVEL BUSINESS ANALYST PATIENT STATUS Timed 09/21/2023 6:35 AM ENTRY LEVEL BUSINESS ANALYST ABG W/COOX Timed 09/21/2023 6:35 AM ENTRY LEVEL BUSINESS ANALYST GLUCOSE POCT, B Routine 09/21/2023 6:31 AM ENTRY LEVEL BUSINESS ANALYST CBC WITHOUT DIFFERENTIAL, B Timed 09/21/2023 5:11 AM ENTRY LEVEL BUSINESS ANALYST PHOSPHORUS (INORGANIC), S Timed 09/21/2023 5:11 AM ENTRY LEVEL BUSINESS ANALYST MAGNESIUM, S Timed 09/21/2023 5:11 AM ENTRY LEVEL BUSINESS ANALYST BASIC METABOLIC PANEL, S/P Timed 09/21/2023 5:11 AM ENTRY LEVEL BUSINESS ANALYST BASIC METABOLIC PANEL, S/P Timed 09/21/2023 12:21 AM ENTRY LEVEL BUSINESS ANALYST GLUCOSE POCT, B Routine 09/20/2023 8:33 PM ENTRY LEVEL BUSINESS ANALYST POTASSIUM, S/P Timed 09/20/2023 8:33 PM ENTRY LEVEL BUSINESS ANALYST GLUCOSE POCT, B Routine 09/20/2023 4:31 PM ENTRY LEVEL BUSINESS ANALYST BASIC METABOLIC PANEL, S/P STAT 09/20/2023 4:27 PM ENTRY LEVEL BUSINESS ANALYST RESPIRATORY ASSESS AND TREAT Routine 09/20/2023 2:00 PM ENTRY LEVEL BUSINESS ANALYST GLUCOSE POCT, B Routine 09/20/2023 11:51 AM ENTRY LEVEL BUSINESS ANALYST BASIC METABOLIC PANEL, S/P STAT 09/20/2023 11:51 AM ENTRY LEVEL BUSINESS ANALYST GLUCOSE POCT, B Routine 09/20/2023 6:30 AM ENTRY LEVEL BUSINESS ANALYST PREPARE PLATELETS STAT 09/20/2023 6:3 0 AM ENTRY LEVEL BUSINESS ANALYST PREPARE CRYOPRECIPITATE STAT 09/20/2023 4:30 AM ENTRY LEVEL BUSINESS ANALYST LACTATE, B Timed 09/20/2023 4:11 AM ENTRY LEVEL BUSINESS ANALYST PATIENT STATUS Timed 09/20/2023 4:11 AM ENTRY LEVEL BUSINESS ANALYST ABG W/O COOX Timed 09/20/2023 4:11 AM ENTRY LEVEL BUSINESS ANALYST ACTIVATED PARTIAL THROMBOPLASTIN TIME (APTT), P Timed 09/20/2023 4:09 AM ENTRY LEVEL BUSINESS ANALYST PROTHROMBIN TIME (PT), P Timed 09/20/2023 4:09 AM ENTRY LEVEL BUSINESS ANALYST CBC WITHOUT DIFFERENTIAL, B Timed 09/20/2023 4:09 AM ENTRY LEVEL BUSINESS ANALYST MAGNESIUM, S Timed 09/20/2023 4:09 AM ENTRY LEVEL BUSINESS ANALYST BASIC METABOLIC PANEL, S/P Timed 09/20/2023 4:09 AM ENTRY LEVEL BUSINESS ANALYST DX CHEST PORTABLE WITH AM ROUNDS 1 VIEW RAD - Routine (most inpatients and all outpatients) 09/20/2023 3:33 AM ENTRY LEVEL BUSINESS ANALYST TIMP2/[id number] MANJEET RISK SCORE, U Routine 09/20/2023 3:24 AM ENTRY LEVEL BUSINESS ANALYST PREPARE PLATELETS STAT 09/20/2023 2:3 0 AM ENTRY LEVEL BUSINESS ANALYST PREPARE PLATELETS STAT 09/20/2023 2:3 0 AM ENTRY LEVEL BUSINESS ANALYST PREPARE FRESH FROZEN PLASMA STAT 09/20/2023 2:30 AM ENTRY LEVEL BUSINESS ANALYST GLUCOSE POCT, B Routine 09/20/2023 1:17 AM ENTRY LEVEL BUSINESS ANALYST GLUCOSE POCT, B Routine 09/19/2023 11:58 PM ENTRY LEVEL BUSINESS ANALYST GLUCOSE POCT, B Routine 09/19/2023 11:20 PM ENTRY LEVEL BUSINESS ANALYST LACTATE, B Timed 09/19/2023 10:58 PM ENTRY LEVEL BUSINESS ANALYST RESPIRATORY ASSESS AND TREAT Routine 09/19/2023 10:30 PM ENTRY LEVEL BUSINESS ANALYST GLUCOSE POCT, B Routine 09/19/2023 10:27 PM ENTRY LEVEL BUSINESS ANALYST GLUCOSE POCT, B Routine 09/19/2023 9:24 PM ENTRY LEVEL BUSINESS ANALYST ECG Routine 09/19/2023 8:14 PM ENTRY LEVEL BUSINESS ANALYST GLUCOSE POCT, B Routine 09/19/2023 7:58 PM ENTRY LEVEL BUSINESS ANALYST LACTATE, B Timed 09/19/2023 7:43 PM ENTRY LEVEL BUSINESS ANALYST PATIENT STATUS Timed 09/19/2023 7:43 PM ENTRY LEVEL BUSINESS ANALYST ABG W/COOX Timed 09/19/2023 7:43 PM ENTRY LEVEL BUSINESS ANALYST LACTATE, B/P Timed 09/19/2023 7:43 PM ENTRY LEVEL BUSINESS ANALYST GLUCOSE POCT, B Routine 09/19/2023 6:57 PM ENTRY LEVEL BUSINESS ANALYST GLUCOSE POCT, B Routine 09/19/2023 6:23 PM ENTRY LEVEL BUSINESS ANALYST DX CHEST PORTABLE 1 VIEW 09/19/2023 5:45 PM ENTRY LEVEL BUSINESS ANALYST LACTATE, B STAT 09/19/2023 5:19 PM ENTRY LEVEL BUSINESS ANALYST PATIENT STATUS STAT 09/19/2023 5:19 PM ENTRY LEVEL BUSINESS ANALYST ABG W/COOX STAT 09/19/2023 5:19 PM ENTRY LEVEL BUSINESS ANALYST CYSTATIN C WITH EGFR Timed 09/19/2023 5:19 PM ENTRY LEVEL BUSINESS ANALYST Acquired Aortic Valve Disorder ACTIVATED PARTIAL THROMBOPLASTIN TIME (APTT), P STAT 09/19/2023 5:19 PM ENTRY LEVEL BUSINESS ANALYST PROTHROMBIN TIME (PT), P STAT 09/19/2023 5:19 PM ENTRY LEVEL BUSINESS ANALYST FIBRINOGEN, P STAT 09/19/2023 5:19 PM ENTRY LEVEL BUSINESS ANALYST CBC WITHOUT DIFFERENTIAL, B STAT 09/19/2023 5:19 PM ENTRY LEVEL BUSINESS ANALYST BASIC METABOLIC PANEL, S/P STAT 09/19/2023 5:19 PM ENTRY LEVEL BUSINESS ANALYST AIRWAY CARE Routine 09/19/2023 5:16 PM ENTRY LEVEL BUSINESS ANALYST MECHANICAL VENTILATOR Routine 09/19/2023 5:16 PM ENTRY LEVEL BUSINESS ANALYST RESPIRATORY ASSESS AND TREAT Routine 09/19/2023 5:07 PM ENTRY LEVEL BUSINESS ANALYST TRANSFUSE PLATELETS Routine 09/19/2023 4 :58 PM ENTRY LEVEL BUSINESS ANALYST LACTATE, B STAT 09/19/2023 4:20 PM ENTRY LEVEL BUSINESS ANALYST SODIUM, B STAT 09/19/2023 4:20 PM ENTRY LEVEL BUSINESS ANALYST ABG W/COOX STAT 09/19/2023 4:20 PM ENTRY LEVEL BUSINESS ANALYST POTASSIUM, B STAT 09/19/2023 4:20 PM ENTRY LEVEL BUSINESS ANALYST GLUCOSE, WHOLE BLOOD STAT 09/19/2023 4:20 PM ENTRY LEVEL BUSINESS ANALYST ACTIVATED PARTIAL THROMBOPLASTIN TIME (APTT), P STAT 09/19/2023 4:20 PM ENTRY LEVEL BUSINESS ANALYST PROTHROMBIN TIME (PT), P STAT 09/19/2023 4:20 PM ENTRY LEVEL BUSINESS ANALYST FIBRINOGEN, P STAT 09/19/2023 4:20 PM ENTRY LEVEL BUSINESS ANALYST PLATELETS, B STAT 09/19/2023 4:20 PM ENTRY LEVEL BUSINESS ANALYST CALCIUM, IONIZED, S/B STAT 09/19/2023 4:20 PM ENTRY LEVEL BUSINESS ANALYST TRANSFUSE CRYOPRECIPITATE Routine 09/19/2023 3:53 PM ENTRY LEVEL BUSINESS ANALYST TRANSFUSE CRYOPRECIPITATE Routine 09/19/2023 3:51 PM ENTRY LEVEL BUSINESS ANALYST TRANSFUSE RED BLOOD CELLS Routine 09/19/2023 3:50 PM ENTRY LEVEL BUSINESS ANALYST LACTATE, B STAT 09/19/2023 3:37 PM ENTRY LEVEL BUSINESS ANALYST SODIUM, B STAT 09/19/2023 3:37 PM ENTRY LEVEL BUSINESS ANALYST ABG W/COOX STAT 09/19/2023 3:37 PM ENTRY LEVEL BUSINESS ANALYST THROMBOELASTOGRAPH, KAOLIN + HEPARINASE, B STAT 09/19/2023 3:37 PM ENTRY LEVEL BUSINESS ANALYST POTASSIUM, B STAT 09/19/2023 3:37 PM ENTRY LEVEL BUSINESS ANALYST GLUCOSE, WHOLE BLOOD STAT 09/19/2023 3:37 PM ENTRY LEVEL BUSINESS ANALYST THROMBOELASTOGRAPH, KAOLIN, B STAT 09/19/2023 3:37 PM ENTRY LEVEL BUSINESS ANALYST ACTIVATED PARTIAL THROMBOPLASTIN TIME (APTT), P STAT 09/19/2023 3:37 PM ENTRY LEVEL BUSINESS ANALYST PROTHROMBIN TIME (PT), P STAT 09/19/2023 3:37 PM ENTRY LEVEL BUSINESS ANALYST FIBRINOGEN, P STAT 09/19/2023 3:37 PM ENTRY LEVEL BUSINESS ANALYST PLATELETS, B STAT 09/19/2023 3:37 PM ENTRY LEVEL BUSINESS ANALYST CALCIUM, IONIZED, S/B STAT 09/19/2023 3:37 PM ENTRY LEVEL BUSINESS ANALYST TRANSFUSE RED BLOOD CELLS Routine 09/19/2023 3:23 PM ENTRY LEVEL BUSINESS ANALYST SODIUM, B STAT 09/19/2023 2:46 PM ENTRY LEVEL BUSINESS ANALYST ABG W/COOX STAT 09/19/2023 2:46 PM ENTRY LEVEL BUSINESS ANALYST POTASSIUM, B STAT 09/19/2023 2:46 PM ENTRY LEVEL BUSINESS ANALYST GLUCOSE, WHOLE BLOOD STAT 09/19/2023 2:46 PM ENTRY LEVEL BUSINESS ANALYST ACTIVATED PARTIAL THROMBOPLASTIN TIME (APTT), P STAT 09/19/2023 2:46 PM ENTRY LEVEL BUSINESS ANALYST PROTHROMBIN TIME (PT), P STAT 09/19/2023 2:46 PM ENTRY LEVEL BUSINESS ANALYST FIBRINOGEN, P STAT 09/19/2023 2:46 PM ENTRY LEVEL BUSINESS ANALYST PLATELETS, B STAT 09/19/2023 2:46 PM ENTRY LEVEL BUSINESS ANALYST CALCIUM, IONIZED, S/B STAT 09/19/2023 2:46 PM ENTRY LEVEL BUSINESS ANALYST DX CHEST RETAINED SURGICAL ITEM 1 VIEW RAD - Emergent (Fastest; for the most critically ill patients) 09/19/2023 2:30 PM ENTRY LEVEL BUSINESS ANALYST TRANSFUSE PLATELETS Routine 09/19/2023 2 :15 PM ENTRY LEVEL BUSINESS ANALYST TRANSFUSE RED BLOOD CELLS Routine 09/19/2023 2:00 PM ENTRY LEVEL BUSINESS ANALYST SODIUM, B STAT 09/19/2023 1:40 PM ENTRY LEVEL BUSINESS ANALYST ABG W/COOX STAT 09/19/2023 1:40 PM ENTRY LEVEL BUSINESS ANALYST POTASSIUM, B STAT 09/19/2023 1:40 PM ENTRY LEVEL BUSINESS ANALYST GLUCOSE, WHOLE BLOOD STAT 09/19/2023 1:40 PM ENTRY LEVEL BUSINESS ANALYST ACTIVATED PARTIAL THROMBOPLASTIN TIME (APTT), P STAT 09/19/2023 1:40 PM ENTRY LEVEL BUSINESS ANALYST PROTHROMBIN TIME (PT), P STAT 09/19/2023 1:40 PM ENTRY LEVEL BUSINESS ANALYST FIBRINOGEN, P STAT 09/19/2023 1:40 PM ENTRY LEVEL BUSINESS ANALYST PLATELETS, B STAT 09/19/2023 1:40 PM ENTRY LEVEL BUSINESS ANALYST CALCIUM, IONIZED, S/B STAT 09/19/2023 1:40 PM ENTRY LEVEL BUSINESS ANALYST AUTOLOGOUS RED BLOOD CELLS-CELL SALVAGE Routine 09/19/2023 1:28 PM ENTRY LEVEL BUSINESS ANALYST TRANSFUSE FRESH FROZEN PLASMA Routine 09/19/2023 1:24 PM ENTRY LEVEL BUSINESS ANALYST TRANSFUSE PLATELETS Routine 09/19/2023 1 :09 PM ENTRY LEVEL BUSINESS ANALYST LACTATE, B STAT 09/19/2023 12:45 PM ENTRY LEVEL BUSINESS ANALYST SODIUM, B STAT 09/19/2023 12:45 PM ENTRY LEVEL BUSINESS ANALYST ABG W/COOX STAT 09/19/2023 12:45 PM ENTRY LEVEL BUSINESS ANALYST POTASSIUM, B STAT 09/19/2023 12:45 PM ENTRY LEVEL BUSINESS ANALYST GLUCOSE, WHOLE BLOOD STAT 09/19/2023 12:45 PM ENTRY LEVEL BUSINESS ANALYST CALCIUM, IONIZED, S/B STAT 09/19/2023 12:45 PM ENTRY LEVEL BUSINESS ANALYST ACTIVATED PARTIAL THROMBOPLASTIN TIME (APTT), P STAT 09/19/2023 12:44 PM ENTRY LEVEL BUSINESS ANALYST PROTHROMBIN TIME (PT), P STAT 09/19/2023 12:44 PM ENTRY LEVEL BUSINESS ANALYST FIBRINOGEN, P STAT 09/19/2023 12:44 PM ENTRY LEVEL BUSINESS ANALYST PLATELETS, B STAT 09/19/2023 12:44 PM ENTRY LEVEL BUSINESS ANALYST ACT, POCT, B Routine 09/19/2023 12:42 PM ENTRY LEVEL BUSINESS ANALYST HEMOGLOBIN (HGB), POCT, B Routine 09/19/2023 12:17 PM ENTRY LEVEL BUSINESS ANALYST ACT, POCT, B Routine 09/19/2023 12:01 PM ENTRY LEVEL BUSINESS ANALYST GLUCOSE POCT, B Routine 09/19/2023 12:00 PM ENTRY LEVEL BUSINESS ANALYST SURGICAL PATHOLOGY, [facility] LAB Routine 09/19/2023 11:34 AM ENTRY LEVEL BUSINESS ANALYST Stenosis Aortic Valve Acquired AUTOLOGOUS RED BLOOD CELLS-CELL SALVAGE Routine 09/19/2023 11:33 AM ENTRY LEVEL BUSINESS ANALYST ACT, POCT, B Routine 09/19/2023 11:28 AM ENTRY LEVEL BUSINESS ANALYST ACT, POCT, B Routine 09/19/2023 10:55 AM ENTRY LEVEL BUSINESS ANALYST ACT, POCT, B Routine 09/19/2023 10:24 AM ENTRY LEVEL BUSINESS ANALYST GLUCOSE POCT, B Routine 09/19/2023 10:23 AM ENTRY LEVEL BUSINESS ANALYST TRANSFUSE RED BLOOD CELLS Routine 09/19/2023 10:13 AM ENTRY LEVEL BUSINESS ANALYST (EDMUNDO) - INTRAOPERATIVE WITH COLOR AND LIMITED DOPPLER (PROBE NOT PLACED) Routine 09/19/2023 9:56 AM ENTRY LEVEL BUSINESS ANALYST SODIUM, B STAT 09/19/2023 9:51 AM ENTRY LEVEL BUSINESS ANALYST ABG W/COOX STAT 09/19/2023 9:51 AM ENTRY LEVEL BUSINESS ANALYST ACT, POCT, B Routine 09/19/2023 9:51 AM ENTRY LEVEL BUSINESS ANALYST POTASSIUM, B STAT 09/19/2023 9:51 AM ENTRY LEVEL BUSINESS ANALYST GLUCOSE, WHOLE BLOOD STAT 09/19/2023 9:51 AM ENTRY LEVEL BUSINESS ANALYST CALCIUM, IONIZED, S/B STAT 09/19/2023 9:51 AM ENTRY LEVEL BUSINESS ANALYST ACT, POCT, B Routine 09/19/2023 9:26 AM ENTRY LEVEL BUSINESS ANALYST HEMOGLOBIN (HGB), POCT, B Routine 09/19/2023 9:24 AM ENTRY LEVEL BUSINESS ANALYST LACTATE, B STAT 09/19/2023 8:25 AM ENTRY LEVEL BUSINESS ANALYST SODIUM, B STAT 09/19/2023 8:25 AM ENTRY LEVEL BUSINESS ANALYST ABG W/COOX STAT 09/19/2023 8:25 AM ENTRY LEVEL BUSINESS ANALYST POTASSIUM, B STAT 09/19/2023 8:25 AM ENTRY LEVEL BUSINESS ANALYST GLUCOSE, WHOLE BLOOD STAT 09/19/2023 8:25 AM ENTRY LEVEL BUSINESS ANALYST CALCIUM, IONIZED, S/B STAT 09/19/2023 8:25 AM ENTRY LEVEL BUSINESS ANALYST ACT, POCT, B Routine 09/19/2023 8:24 AM ENTRY LEVEL BUSINESS ANALYST ECHOCARDIOGRAM TRANSESOPHAGEAL 09/19/2023 7:03 AM ENTRY LEVEL BUSINESS ANALYST Stenosis Aortic Valve Acquired ISOLATION PULMONARY VEIN 09/19/2023 7:03 AM ENTRY LEVEL BUSINESS ANALYST Stenosis Aortic Valve Acquired LIGATION LEFT ATRIAL APPENDAGE 09/19/2023 7:03 AM ENTRY LEVEL BUSINESS ANALYST 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 09/19/2023 7:03 AM ENTRY LEVEL BUSINESS ANALYST Stenosis Aortic Valve Acquired REPLACEMENT AORTIC VALVE 09/19/2023 7:03 AM ENTRY LEVEL BUSINESS ANALYST Stenosis Aortic Valve Acquired PREPARE RED BLOOD CELLS STAT 09/18/2023 9:04 AM ENTRY LEVEL BUSINESS ANALYST PREPARE RED BLOOD CELLS STAT 09/18/2023 9:04 AM ENTRY LEVEL BUSINESS ANALYST PREPARE RED BLOOD CELLS STAT 09/18/2023 9:04 AM ENTRY LEVEL BUSINESS ANALYST documented in this encounter Results * (ABNORMAL) Glucose, POCT (09/26/2023 11:37 AM ENTRY LEVEL BUSINESS ANALYST) Glucose, POCT, B 190(H) 70 - 140 mg/dL 09/26/2023 11:54 AM ENTRY LEVEL BUSINESS ANALYST PCLX Site Capillary 09/26/2023 11:54 AM ENTRY LEVEL BUSINESS ANALYST PCLX Last Intake 3-4 hours 09/26/2023 11:54 AM ENTRY LEVEL BUSINESS ANALYST PCLX Blood 09/26/2023 11:3 7 AM ENTRY LEVEL BUSINESS ANALYST 09/26/2023 11:54 AM ENTRY LEVEL BUSINESS ANALYST Unknown Provider LAB POCT ORDERABLES- MANUAL Performing Organization Address City/[facility]/ZIP Co de Phone Number POC [facility] [address] [place] [address], [facility] PCLX [facility] [address] [place] [address] * (ABNORMAL) Glucose, POCT (09/26/2023 7:55 AM ENTRY LEVEL BUSINESS ANALYST) Pathologist [facility] Glucose, POCT, B 148(H) 70 - 140 mg/dL 09/26/2023 8:07 AM ENTRY LEVEL BUSINESS ANALYST PCLX Site Capillary 09/26/2023 8:07 AM ENTRY LEVEL BUSINESS ANALYST PCLX Last Intake 3-4 hours 09/26/2023 8:07 AM ENTRY LEVEL BUSINESS ANALYST PCLX Blood 09/26/2023 7:55 AM ENTRY LEVEL BUSINESS ANALYST 09/26/2023 8:07 AM ENTRY LEVEL BUSINESS ANALYST Unknown Provider LAB POCT ORDERABLES- MANUAL [facility] [address] [place] [address], [facility] [address] [place] [address] * (ABNORMAL) Basic Metabolic Panel (09/26/2023 6:58 AM ENTRY LEVEL BUSINESS ANALYST) Potassium, S 4.4 3.6 - 5.2 mmol/L 09/26/2023 8:19 AM ENTRY LEVEL BUSINESS ANALYST DTL Sodium, S 141 135 - 145 mmol/L 09/26/2023 8:19 AM ENTRY LEVEL BUSINESS ANALYST DTL Chloride, S 101 98 - 107 mmol/L 09/26/2023 8:19 AM ENTRY LEVEL BUSINESS ANALYST DTL Bicarbonate, S 31(H) 22 - 29 mmol/L 09/26/2023 8:19 AM ENTRY LEVEL BUSINESS ANALYST DTL Anion Gap 9 7 - 15 09/26/2023 8:19 AM ENTRY LEVEL BUSINESS ANALYST DTL BUN (Blood Urea Nitrogen), S 32(H) 8 - 24 mg/dL 09/26/2023 8:19 AM ENTRY LEVEL BUSINESS ANALYST DTL Creatinine 2.41(H) 0.74 - 1.35 mg/dL 09/26/2023 8:19 AM ENTRY LEVEL BUSINESS ANALYST DTL Estimated GFR (eGFR) 28(L) >=60 mL/min/BSA 09/26/2023 8:19 AM ENTRY LEVEL BUSINESS ANALYST DTL Comment: Estimated GFR calculated using the 2020 CKD_EPI creatinine equation. Calcium, Total, S 8.5(L) 8.8 - 10.2 mg/dL 09/26/2023 8:19 AM ENTRY LEVEL BUSINESS ANALYST DTL Glucose, S 151(H) 70 - 140 mg/dL 09/26/2023 8:19 AM ENTRY LEVEL BUSINESS ANALYST DTL Blood (Blood, Venous) 09/26/2023 6:58 AM ENTRY LEVEL BUSINESS ANALYST 09/26/2023 7:58 AM ENTRY LEVEL BUSINESS ANALYST Laila Basurto P.A.-C. LAB BLOOD ADD -ON [address] [address], [facility] [address] [address] * (ABNORMAL) Prothrombin Time (PT) (09/26/2023 6:58 AM ENTRY LEVEL BUSINESS ANALYST) Prothrombin Time, P 22.0(H) 9.4 - 12.5 sec 09/26/2023 8:25 AM ENTRY LEVEL BUSINESS ANALYST DTL INR 2.0 0.9 - 1.1 09/26/2023 8:25 AM ENTRY LEVEL BUSINESS ANALYST DTL Comment: ----ADDITIONAL INFORMATION---- Standard intensity warfarin therapeutic range: 2.0 to 3.0 ?? High intensity warfarin therapeutic range: 2.5 to 3.5 Blood (Blood, Venous) 09/26/2023 6:58 AM ENTRY LEVEL BUSINESS ANALYST 09/26/2023 7:42 AM ENTRY LEVEL BUSINESS ANALYST Marge Radha Hair APRNNJarrettP., Emilia.N.P. LAB B LOOD ADD-ON Performing Organization Address City/[facility] Co de Phone Number [facility] [address] [facility] [address] [place] [address] * (ABNORMAL) CBC without Differential (09/26/2023 6:58 AM ENTRY LEVEL BUSINESS ANALYST) [facility] Hemoglobin 8.3(L) 13.2 - 16.6 g/dL 09/26/2023 8:04 AM ENTRY LEVEL BUSINESS ANALYST DTL Hematocrit 25.5(L) 38.3 - 48.6 % 09/26/2023 8:04 AM ENTRY LEVEL BUSINESS ANALYST DTL Erythrocytes 2.70(L) 4.35 - 5.65 x10(12)/L 09/26/2023 8:04 AM ENTRY LEVEL BUSINESS ANALYST DTL MCV 94.4 78.2 - 97.9 fL 09/26/2023 8:04 AM ENTRY LEVEL BUSINESS ANALYST DTL RBC Distrib Width 13.5 11.8 - 14.5 % 09/26/2023 8:04 AM ENTRY LEVEL BUSINESS ANALYST DTL Platelet Count 214 135 - 317 x10(9)/L 09/26/2023 8:04 AM ENTRY LEVEL BUSINESS ANALYST DTL Leukocytes 6.7 3.4 - 9.6 x10(9)/L 09/26/2023 8:04 AM ENTRY LEVEL BUSINESS ANALYST DTL Blood (Blood, Venous) 09/26/2023 6:58 AM ENTRY LEVEL BUSINESS ANALYST 09/26/2023 7:43 AM ENTRY LEVEL BUSINESS ANALYST Jenny Jay, B.Ch., B.A.O. LAB BLOOD ADD-ON Performing Organization Address City/[facility]/ZIP Co de Phone Number [facility] [address] [place] [address], [facility] [address] [place] [address] * (ABNORMAL) Glucose, POCT (09/25/2023 8:25 PM ENTRY LEVEL BUSINESS ANALYST) Glucose, POCT, B 193(H) 70 - 140 mg/dL 09/25/2023 8:31 PM ENTRY LEVEL BUSINESS ANALYST PCLX Site Capillary 09/25/2023 8:31 PM ENTRY LEVEL BUSINESS ANALYST PCLX Blood 09/25/2023 8:25 PM ENTRY LEVEL BUSINESS ANALYST 09/25/2023 8:31 PM ENTRY LEVEL BUSINESS ANALYST Unknown Provider LAB POCT ORDERABLES- MANUAL Performing Organization Address City/[facility]/ZIP Co de Phone Number POC [facility] [address] [place] [address], [facility] PCLX [facility] [address] [place] [address] * (ABNORMAL) Glucose, POCT (09/25/2023 5:36 PM ENTRY LEVEL BUSINESS ANALYST) Glucose, POCT, B 197(H) 70 - 140 mg/dL 09/25/2023 5:38 PM ENTRY LEVEL BUSINESS ANALYST PCLX Site Capillary 09/25/2023 5:38 PM ENTRY LEVEL BUSINESS ANALYST PCLX Last Intake 3-4 hours 09/25/2023 5:38 PM ENTRY LEVEL BUSINESS ANALYST PCLX Blood 09/25/2023 5:36 PM ENTRY LEVEL BUSINESS ANALYST 09/25/2023 5:39 PM ENTRY LEVEL BUSINESS ANALYST Unknown Provider LAB POCT ORDERABLES- MANUAL Performing Organization Address [facility] Co de Phone Number [facility] [address] [place] [address], [place] PCLX [facility] [address] [place] [address] * (ABNORMAL) Glucose, POCT (09/25/2023 1:13 PM ENTRY LEVEL BUSINESS ANALYST) Glucose, POCT, B 196(H) 70 - 140 mg/dL 09/25/2023 1:15 PM ENTRY LEVEL BUSINESS ANALYST PCLX Last Intake 3-4 hours 09/25/2023 1:15 PM ENTRY LEVEL BUSINESS ANALYST PCLX Blood 09/25/2023 1:13 PM ENTRY LEVEL BUSINESS ANALYST 09/25/2023 1:16 PM ENTRY LEVEL BUSINESS ANALYST Unknown Provider LAB POCT ORDERABLES- MANUAL Performing Organization Address City/[facility]/ZIP Co de Phone Number [facility] [address] [place] [address], [facility] PCLX [facility] [address] [place] [address] * (ABNORMAL) Basic Metabolic Panel (09/25/2023 9:26 AM ENTRY LEVEL BUSINESS ANALYST) [facility] Potassium, S 4.3 3.6 - 5.2 mmol/L 09/25/2023 10:36 AM ENTRY LEVEL BUSINESS ANALYST DTL Sodium, S 138 135 - 145 mmol/L 09/25/2023 10:36 AM ENTRY LEVEL BUSINESS ANALYST DTL Chloride, S 98 98 - 107 mmol/L 09/25/2023 10:36 AM ENTRY LEVEL BUSINESS ANALYST DTL Bicarbonate, S 30(H) 22 - 29 mmol/L 09/25/2023 10:36 AM ENTRY LEVEL BUSINESS ANALYST DTL Anion Gap 10 7 - 15 09/25/2023 10:36 AM ENTRY LEVEL BUSINESS ANALYST DTL BUN (Blood Urea Nitrogen), S 34(H) 8 - 24 mg/dL 09/25/2023 10:36 AM ENTRY LEVEL BUSINESS ANALYST DTL Creatinine 2.64(H) 0.74 - 1.35 mg/dL 09/25/2023 10:36 AM ENTRY LEVEL BUSINESS ANALYST DTL Estimated GFR (eGFR) 25(L) >=60 mL/min/BSA 09/25/2023 10:36 AM ENTRY LEVEL BUSINESS ANALYST DTL Comment: Estimated GFR calculated using the 2020 CKD_EPI creatinine equation. Calcium, Total, S 8.6(L) 8.8 - 10.2 mg/dL 09/25/2023 10:36 AM ENTRY LEVEL BUSINESS ANALYST DTL Glucose, S 177(H) 70 - 140 mg/dL 09/25/2023 10:36 AM ENTRY LEVEL BUSINESS ANALYST DTL Blood (Blood, Venous) 09/25/2023 9:26 AM ENTRY LEVEL BUSINESS ANALYST 09/25/2023 10:18 AM ENTRY LEVEL BUSINESS ANALYST Laila Basurto P.A.-C. LAB BLOOD ADD -ON [facility] [address] [place] [address], [facility] DTL [facility] [address] [place] [address] * (ABNORMAL) Prothrombin Time (PT) (09/25/2023 9:26 AM ENTRY LEVEL BUSINESS ANALYST) [facility] Prothrombin Time, P 22.4(H) 9.4 - 12.5 sec 09/25/2023 11:10 AM ENTRY LEVEL BUSINESS ANALYST DTL INR 2.0 0.9 - 1.1 09/25/2023 11:10 AM ENTRY LEVEL BUSINESS ANALYST DTL Comment: ----ADDITIONAL INFORMATION---- Standard intensity warfarin therapeutic range: 2.0 to 3.0 ?? High intensity warfarin therapeutic range: 2.5 to 3.5 Blood (Blood, Venous) 09/25/2023 9:26 AM ENTRY LEVEL BUSINESS ANALYST 09/25/2023 10:05 AM ENTRY LEVEL BUSINESS ANALYST Anette Hair APRN, C.N.P., D.N.P. LAB B LOOD ADD-ON [facility] [address] [place] [address], [facility] [address] [address] * (ABNORMAL) CBC without Differential (09/25/2023 9:26 AM ENTRY LEVEL BUSINESS ANALYST) Pathologist [facility] Hemoglobin 9.0(L) 13.2 - 16.6 g/dL 09/25/2023 10:55 AM ENTRY LEVEL BUSINESS ANALYST DTL Hematocrit 27.2(L) 38.3 - 48.6 % 09/25/2023 10:55 AM ENTRY LEVEL BUSINESS ANALYST DTL Erythrocytes 2.93(L) 4.35 - 5.65 x10(12)/L 09/25/2023 10:55 AM ENTRY LEVEL BUSINESS ANALYST DTL MCV 92.8 78.2 - 97.9 fL 09/25/2023 10:55 AM ENTRY LEVEL BUSINESS ANALYST DTL RBC Distrib Width 13.6 11.8 - 14.5 % 09/25/2023 10:55 AM ENTRY LEVEL BUSINESS ANALYST DTL Platelet Count 229 135 - 317 x10(9)/L 09/25/2023 10:55 AM ENTRY LEVEL BUSINESS ANALYST DTL Leukocytes 7.5 3.4 - 9.6 x10(9)/L 09/25/2023 10:55 AM ENTRY LEVEL BUSINESS ANALYST DTL Blood (Blood, Venous) 09/25/2023 9:26 AM ENTRY LEVEL BUSINESS ANALYST 09/25/2023 10:09 AM ENTRY LEVEL BUSINESS ANALYST Jenny Jay, BKolby., B.A.O. LAB BLOOD ADD-ON [facility] [address] [place], [place] [id number] [place] [address] DTL [facility] [address] [place] [address] * (ABNORMAL) Glucose, POCT (09/25/2023 8:10 AM ENTRY LEVEL BUSINESS ANALYST) Glucose, POCT, B 161(H) 70 - 140 mg/dL 09/25/2023 8:19 AM ENTRY LEVEL BUSINESS ANALYST PCLX Site Capillary 09/25/2023 8:19 AM ENTRY LEVEL BUSINESS ANALYST PCLX Last Intake 3-4 hours 09/25/2023 8:19 AM ENTRY LEVEL BUSINESS ANALYST PCLX Blood 09/25/2023 8:10 AM ENTRY LEVEL BUSINESS ANALYST 09/25/2023 8:19 AM ENTRY LEVEL BUSINESS ANALYST Unknown Provider LAB POCT ORDERABLES- MANUAL POC [facility] [address] [place], [place] [id number] [place] [address] PCLX [facility] POC [address] [place] [address] * DX Chest AP or PA and Lateral 2 Views (09/25/2023 7:26 AM ENTRY LEVEL BUSINESS ANALYST) Anatomical Region Laterality Modality Chest, Thoracic RST LOS, Tho racic ARZ LOS, Thoracic FLA LOS N/A Digital Radiography 09/25/2023 8:59 AM ENTRY LEVEL BUSINESS ANALYST Impressions 09/25/2023 9:01 AM ENTRY LEVEL BUSINESS ANALYST Sternotomy with aortic valve replacement. Mild enlargement of cardiac silhouette. Loop recorder. Trace pleural effusions. Azygos fissure. Aortic calcification. Degenerative arthritis thoracic spine. No pneumothorax. No significant change since 09/23/2023. Narrative 09/25/2023 9:01 AM ENTRY LEVEL BUSINESS ANALYST EXAM: ??DX CHEST AP OR PA AND [...] * ECG 12 Lead (09/25/2023 4:55 AM ENTRY LEVEL BUSINESS ANALYST) Ventricular Rate ECG/Min 69 BPM MUSE MS Interval 140 ms MUSE QRSD Interval 86 ms MUSE QT Interval 420 ms MUSE QTC Interval 450 ms MUSE P Cecil 30 degrees MUSE R Cecil 29 degrees MUSE T Wave Cecil 74 degrees MUSE 09/25/2023 4:55 AM ENTRY LEVEL BUSINESS ANALYST 09/25/2023 5:12 AM ENTRY LEVEL BUSINESS ANALYST Impressions MUSE - 09/25/2023 5:13 AM ENTRY LEVEL BUSINESS ANALYST Normal sinus rhythm Low voltage QRS in [...] * (ABNORMAL) Glucose, POCT (09/24/2023 8:33 PM ENTRY LEVEL BUSINESS ANALYST) Pathologist [facility] Glucose, POCT, B 183(H) 70 - 140 mg/dL 09/24/2023 8:40 PM ENTRY LEVEL BUSINESS ANALYST PCLX Site Capillary 09/24/2023 8:40 PM ENTRY LEVEL BUSINESS ANALYST PCLX Blood 09/24/2023 8:33 PM ENTRY LEVEL BUSINESS ANALYST 09/24/2023 8:40 PM ENTRY LEVEL BUSINESS ANALYST Unknown Provider LAB POCT ORDERABLES- MANUAL Performing Organization Address City/[facility] Co de Phone Number POC [facility] [address] [place] [address], [facility] PCLX [facility] [address] [place] [address] * (ABNORMAL) Glucose, POCT (09/24/2023 4:44 PM ENTRY LEVEL BUSINESS ANALYST) Glucose, POCT, B 221(H) 70 - 140 mg/dL 09/24/2023 4:59 PM ENTRY LEVEL BUSINESS ANALYST PCLX Site Capillary 09/24/2023 4:59 PM ENTRY LEVEL BUSINESS ANALYST PCLX Last Intake 2-3 hours 09/24/2023 4:59 PM ENTRY LEVEL BUSINESS ANALYST PCLX Blood 09/24/2023 4:44 PM ENTRY LEVEL BUSINESS ANALYST 09/24/2023 5:00 PM ENTRY LEVEL BUSINESS ANALYST Unknown Provider LAB POCT ORDERABLES- MANUAL Performing Organization Address [facility] de Phone Number POC [facility] [address] [place] [address], [facility] PCLX [facility]OC [address] [place] [address] * (TTE) 2D ECHO DOPPLER COLOR (09/24/2023 3:26 PM ENTRY LEVEL BUSINESS ANALYST) Pathologist [facility] Ejection Fraction 64 MC CV EIMS Mid-Ascending [...] Region Laterality Modality Echocardiography 09/24/2023 1:57 PM ENTRY LEVEL BUSINESS ANALYST Impressions 09/24/2023 5:48 PM ENTRY LEVEL BUSINESS ANALYST Echocardiogram performed per dismissal echo protocol. Status [...] the Order-Level Documents. Narrative 09/24/2023 5:48 PM ENTRY LEVEL BUSINESS ANALYST For the complete report, see the Order-Level [...] disc not well seen. Mean aortic prosthetic [id number] mmHg; EOA 2.1 cm2. Trivial (washing jets) [...] * (ABNORMAL) Glucose, POCT (09/24/2023 12:43 PM ENTRY LEVEL BUSINESS ANALYST) Glucose, POCT, B 216(H) 70 - 140 mg/dL 09/24/2023 12:51 PM ENTRY LEVEL BUSINESS ANALYST PCLX Site Capillary 09/24/2023 12:51 PM ENTRY LEVEL BUSINESS ANALYST PCLX Last Intake 3-4 hours 09/24/2023 12:51 PM ENTRY LEVEL BUSINESS ANALYST PCLX Blood 09/24/2023 12:4 3 PM ENTRY LEVEL BUSINESS ANALYST 09/24/2023 12:51 PM ENTRY LEVEL BUSINESS ANALYST Unknown Provider LAB POCT ORDERABLES- MANUAL POC [facility] [address] [place] [address], [facility] PCLX [facility] POC [address] [place] [address] * Glucose, POCT (09/24/2023 7:19 AM ENTRY LEVEL BUSINESS ANALYST) Glucose, POCT, B 138 70 - 140 mg/dL 09/24/2023 7:30 AM ENTRY LEVEL BUSINESS ANALYST PCLX Site Capillary 09/24/2023 7:30 AM ENTRY LEVEL BUSINESS ANALYST PCLX Last Intake 3-4 hours 09/24/2023 7:30 AM ENTRY LEVEL BUSINESS ANALYST PCLX Blood 09/24/2023 7:19 AM ENTRY LEVEL BUSINESS ANALYST 09/24/2023 7:30 AM ENTRY LEVEL BUSINESS ANALYST Unknown Provider LAB POCT ORDERABLES- MANUAL POC [facility] [address] [place] [address], [facility] PCLX [facility] [address] [place] [address] * (ABNORMAL) Basic Metabolic Panel (09/24/2023 6:49 AM ENTRY LEVEL BUSINESS ANALYST) Pathologist [facility] Potassium, S 4.3 3.6 - 5.2 mmol/L 09/24/2023 8:25 AM ENTRY LEVEL BUSINESS ANALYST DTL Sodium, S 138 135 - 145 mmol/L 09/24/2023 8:25 AM ENTRY LEVEL BUSINESS ANALYST DTL Chloride, S 99 98 - 107 mmol/L 09/24/2023 8:25 AM ENTRY LEVEL BUSINESS ANALYST DTL Bicarbonate, S 29 22 - 29 mmol/L 09/24/2023 8:25 AM ENTRY LEVEL BUSINESS ANALYST DTL Anion Gap 10 7 - 15 09/24/2023 8:25 AM ENTRY LEVEL BUSINESS ANALYST DTL BUN (Blood Urea Nitrogen), S 36(H) 8 - 24 mg/dL 09/24/2023 8:25 AM ENTRY LEVEL BUSINESS ANALYST DTL Creatinine 2.48(H) 0.74 - 1.35 mg/dL 09/24/2023 8:25 AM ENTRY LEVEL BUSINESS ANALYST DTL Estimated GFR (eGFR) 27(L) >=60 mL/min/BSA 09/24/2023 8:25 AM ENTRY LEVEL BUSINESS ANALYST DTL Comment: Estimated GFR calculated using the 2020 CKD_EPI creatinine equation. Calcium, Total, S 8.3(L) 8.8 - 10.2 mg/dL 09/24/2023 8:25 AM ENTRY LEVEL BUSINESS ANALYST DTL Glucose, S 148(H) 70 - 140 mg/dL 09/24/2023 8:25 AM ENTRY LEVEL BUSINESS ANALYST DTL Blood (Blood, Venous) 09/24/2023 6:49 AM ENTRY LEVEL BUSINESS ANALYST 09/24/2023 8:01 AM ENTRY LEVEL BUSINESS ANALYST Laila Basurto P.A.-C. LAB BLOOD ADD -ON [facility] [address] [place], [place] [address] [address] [place] [address] * (ABNORMAL) Prothrombin Time (PT) (09/24/2023 6:49 AM ENTRY LEVEL BUSINESS ANALYST) [facility] Prothrombin Time, P 28.9(H) 9.4 - 12.5 sec 09/24/2023 8:17 AM ENTRY LEVEL BUSINESS ANALYST DTL INR 2.6 0.9 - 1.1 09/24/2023 8:17 AM ENTRY LEVEL BUSINESS ANALYST DTL Comment: ----ADDITIONAL INFORMATION---- Standard intensity warfarin therapeutic range: 2.0 to 3.0 ?? High intensity warfarin therapeutic range: 2.5 to 3.5 Blood (Blood, Venous) 09/24/2023 6:49 AM ENTRY LEVEL BUSINESS ANALYST 09/24/2023 7:44 AM ENTRY LEVEL BUSINESS ANALYST Anette Hair APRN, C.N.P., D.N.P. LAB B LOOD ADD-ON [facility] [address] [place] [address], [facility] [address] [place] [address] * (ABNORMAL) CBC without Differential (09/24/2023 6:49 AM ENTRY LEVEL BUSINESS ANALYST) [facility] Hemoglobin 8.3(L) 13.2 - 16.6 g/dL 09/24/2023 8:01 AM ENTRY LEVEL BUSINESS ANALYST DTL Hematocrit 24.2(L) 38.3 - 48.6 % 09/24/2023 8:01 AM ENTRY LEVEL BUSINESS ANALYST DTL Erythrocytes 2.62(L) 4.35 - 5.65 x10(12)/L 09/24/2023 8:01 AM ENTRY LEVEL BUSINESS ANALYST DTL MCV 92.4 78.2 - 97.9 fL 09/24/2023 8:01 AM ENTRY LEVEL BUSINESS ANALYST DTL RBC Distrib Width 13.3 11.8 - 14.5 % 09/24/2023 8:01 AM ENTRY LEVEL BUSINESS ANALYST DTL Platelet Count 163 135 - 317 x10(9)/L 09/24/2023 8:01 AM ENTRY LEVEL BUSINESS ANALYST DTL Leukocytes 6.4 3.4 - 9.6 x10(9)/L 09/24/2023 8:01 AM ENTRY LEVEL BUSINESS ANALYST DTL Blood (Blood, Venous) 09/24/2023 6:49 AM ENTRY LEVEL BUSINESS ANALYST 09/24/2023 7:46 AM ENTRY LEVEL BUSINESS ANALYST Jenny Jay, B.Betty., B.A.O. LAB BLOOD ADD-ON Performing Organization Address City/[facility]/ZIP Co de Phone Number [facility] [address] [place] [address], [facility] DTL [facility] [address] [place] [address] * (ABNORMAL) Glucose, POCT (09/23/2023 9:38 PM ENTRY LEVEL BUSINESS ANALYST) Glucose, POCT, B 186(H) 70 - 140 mg/dL 09/23/2023 9:51 PM ENTRY LEVEL BUSINESS ANALYST PCLX Site Capillary 09/23/2023 9:51 PM ENTRY LEVEL BUSINESS ANALYST PCLX Last Intake 1-2 hours 09/23/2023 9:51 PM ENTRY LEVEL BUSINESS ANALYST PCLX Blood 09/23/2023 9:38 PM ENTRY LEVEL BUSINESS ANALYST 09/23/2023 9:51 PM ENTRY LEVEL BUSINESS ANALYST Unknown Provider LAB POCT ORDERABLES- MANUAL Performing Organization Address [facility] de Phone Number POC [facility] [address] [place] [address], [facility] PCLX [facility] POC [address] [place] [address] * (ABNORMAL) Glucose, POCT (09/23/2023 5:02 PM ENTRY LEVEL BUSINESS ANALYST) Glucose, POCT, B 190(H) 70 - 140 mg/dL 09/23/2023 5:17 PM ENTRY LEVEL BUSINESS ANALYST PCLX Site Capillary 09/23/2023 5:17 PM ENTRY LEVEL BUSINESS ANALYST PCLX Last Intake 3-4 hours 09/23/2023 5:17 PM ENTRY LEVEL BUSINESS ANALYST PCLX Blood 09/23/2023 5:02 PM ENTRY LEVEL BUSINESS ANALYST 09/23/2023 5:17 PM ENTRY LEVEL BUSINESS ANALYST Unknown Provider LAB POCT ORDERABLES- MANUAL Performing Organization Address City/[facility]/ZIP Co de Phone Number POC [facility] [address] [place] [address], [facility] PCLX [facility] [address] [place] [address] * (ABNORMAL) Basic Metabolic Panel (09/23/2023 3:44 PM ENTRY LEVEL BUSINESS ANALYST) Potassium, P 4.4 3.6 - 5.2 mmol/L 09/23/2023 4:06 PM ENTRY LEVEL BUSINESS ANALYST STMA Sodium, P 136 135 - 145 mmol/L 09/23/2023 4:06 PM ENTRY LEVEL BUSINESS ANALYST STMA Chloride, P 97(L) 98 - 107 mmol/L 09/23/2023 4:06 PM ENTRY LEVEL BUSINESS ANALYST STMA Bicarbonate, P 30(H) 22 - 29 mmol/L 09/23/2023 4:06 PM ENTRY LEVEL BUSINESS ANALYST STMA Anion Gap, P 9 7 - 15 09/23/2023 4:06 PM ENTRY LEVEL BUSINESS ANALYST STMA BUN (Blood Urea Nitrogen), P 42(H) 8 - 24 mg/dL 09/23/2023 4:06 PM ENTRY LEVEL BUSINESS ANALYST STMA Creatinine 2.54(H) 0.74 - 1.35 mg/dL 09/23/2023 4:06 PM ENTRY LEVEL BUSINESS ANALYST STMA Estimated GFR (eGFR) 26(L) >=60 mL/min/BSA 09/23/2023 4:06 PM ENTRY LEVEL BUSINESS ANALYST STMA Comment: Estimated GFR calculated using the 2020 CKD_EPI creatinine equation. Calcium, Total, P 8.9 8.8 - 10.2 mg/dL 09/23/2023 4:06 PM ENTRY LEVEL BUSINESS ANALYST STMA Glucose, P 213(H) 70 - 140 mg/dL 09/23/2023 4:06 PM ENTRY LEVEL BUSINESS ANALYST STMA Blood (Blood, Venous) 09/23/2023 3:44 PM ENTRY LEVEL BUSINESS ANALYST 09/23/2023 3:50 PM ENTRY LEVEL BUSINESS ANALYST Laila Basurto P.A.-C. LAB BLOOD ADD -ON [facility] [address] [place] [address], [facility] STMA [facility] [address] [place] [address] * (ABNORMAL) Hemoglobin (09/23/2023 3:44 PM ENTRY LEVEL BUSINESS ANALYST) Pathologist [facility] Hemoglobin 8.1(L) 13.2 - 16.6 g/dL 09/23/2023 3:52 PM ENTRY LEVEL BUSINESS ANALYST [facility] Blood (Blood, Venous) 09/23/2023 3:44 PM ENTRY LEVEL BUSINESS ANALYST 09/23/2023 3:49 PM ENTRY LEVEL BUSINESS ANALYST Laila Basurto P.A.-C. LAB BLOOD ADD -ON Performing Organization Address City/[facility]/ZIP Co de Phone Number [facility] [address] [place] [address], [facility] [address] [place] [address] * (ABNORMAL) Prothrombin Time (PT) (09/23/2023 3:44 PM ENTRY LEVEL BUSINESS ANALYST) [facility] Prothrombin Time, P 41.6(H) 9.4 - 12.5 sec 09/23/2023 3:56 PM ENTRY LEVEL BUSINESS ANALYST [facility] 3.7 0.9 - 1.1 09/23/2023 3:56 PM ENTRY LEVEL BUSINESS ANALYST [facility] Comment: ----ADDITIONAL INFORMATION---- Standard intensity warfarin therapeutic range: 2.0 to 3.0 ?? High intensity warfarin therapeutic range: 2.5 to 3.5 Blood (Blood, Venous) 09/23/2023 3:44 PM ENTRY LEVEL BUSINESS ANALYST 09/23/2023 3:49 PM ENTRY LEVEL BUSINESS ANALYST Laila Basurto P.A.-C. LAB BLOOD ADD -ON [facility] [address] [place] [address], [facility] [address] [place] [address] * (ABNORMAL) Glucose, POCT (09/23/2023 12:19 PM ENTRY LEVEL BUSINESS ANALYST) Pathologist [facility] Glucose, POCT, B 169(H) 70 - 140 mg/dL 09/23/2023 12:26 PM ENTRY LEVEL BUSINESS ANALYST PCLX Site Capillary 09/23/2023 12:26 PM ENTRY LEVEL BUSINESS ANALYST PCLX Last Intake 3-4 hours 09/23/2023 12:26 PM ENTRY LEVEL BUSINESS ANALYST PCLX Blood 09/23/2023 12:1 9 PM ENTRY LEVEL BUSINESS ANALYST 09/23/2023 12:26 PM ENTRY LEVEL BUSINESS ANALYST Unknown Provider LAB POCT ORDERABLES- MANUAL POC [facility] [address] [place] [address], [facility] PCLX [facility] POC [address] [place] [address] * DX Chest AP or PA and Lateral 2 Views (09/23/2023 8:44 AM ENTRY LEVEL BUSINESS ANALYST) Anatomical Region Laterality Modality Chest, Thoracic RST LOS, Tho racic ARZ LOS, Thoracic FLA LOS N/A Digital Radiography 09/23/2023 10:2 2 AM ENTRY LEVEL BUSINESS ANALYST Impressions 09/23/2023 10:23 AM ENTRY LEVEL BUSINESS ANALYST The right IJ vascular sheath has been removed since 09/20/2023. Improved aeration with decrease accentuation of the cardiovascular structures. Decrease vascular congestion. Likely similar small bilateral pleural effusions, allowing for differences in technique. Loop recorder, sternotomy, AVR, normal variant azygos lobe are again identified. Narrative 09/23/2023 10:23 AM ENTRY LEVEL BUSINESS ANALYST EXAM: ??DX CHEST AP OR PA AND [...] (ABNORMAL) Basic Metabolic Panel (09/23/2023 7:34 AM ENTRY LEVEL BUSINESS ANALYST) Potassium, S 4.5 3.6 - 5.2 mmol/L 09/23/2023 8:46 AM ENTRY LEVEL BUSINESS ANALYST DTL Sodium, S 135 135 - 145 mmol/L 09/23/2023 8:46 AM ENTRY LEVEL BUSINESS ANALYST DTL Chloride, S 98 98 - 107 mmol/L 09/23/2023 8:46 AM ENTRY LEVEL BUSINESS ANALYST DTL Bicarbonate, S 29 22 - 29 mmol/L 09/23/2023 8:46 AM ENTRY LEVEL BUSINESS ANALYST DTL Anion Gap 8 7 - 15 09/23/2023 8:46 AM ENTRY LEVEL BUSINESS ANALYST DTL BUN (Blood Urea Nitrogen), S 39(H) 8 - 24 mg/dL 09/23/2023 8:46 AM ENTRY LEVEL BUSINESS ANALYST DTL Creatinine 2.54(H) 0.74 - 1.35 mg/dL 09/23/2023 8:46 AM ENTRY LEVEL BUSINESS ANALYST DTL Estimated GFR (eGFR) 26(L) >=60 mL/min/BSA 09/23/2023 8:46 AM ENTRY LEVEL BUSINESS ANALYST DTL Comment: Estimated GFR calculated using the 2020 CKD_EPI creatinine equation. Calcium, Total, S 8.3(L) 8.8 - 10.2 mg/dL 09/23/2023 8:46 AM ENTRY LEVEL BUSINESS ANALYST DTL Glucose, S 159(H) 70 - 140 mg/dL 09/23/2023 8:46 AM ENTRY LEVEL BUSINESS ANALYST DTL Blood (Blood, Venous) 09/23/2023 7:34 AM ENTRY LEVEL BUSINESS ANALYST 09/23/2023 8:25 AM ENTRY LEVEL BUSINESS ANALYST Laila Basurto P.A.-C. LAB BLOOD ADD -ON [address] [address], [facility] [address] [place] [address] * (ABNORMAL) Prothrombin Time (PT) (09/23/2023 7:34 AM ENTRY LEVEL BUSINESS ANALYST) Prothrombin Time, P 35.5(H) 9.4 - 12.5 sec 09/23/2023 8:23 AM ENTRY LEVEL BUSINESS ANALYST DTL INR 3.2 0.9 - 1.1 09/23/2023 8:23 AM ENTRY LEVEL BUSINESS ANALYST DTL Comment: ----ADDITIONAL INFORMATION---- Standard intensity warfarin therapeutic range: 2.0 to 3.0 ?? High intensity warfarin therapeutic range: 2.5 to 3.5 Blood (Blood, Venous) 09/23/2023 7:34 AM ENTRY LEVEL BUSINESS ANALYST 09/23/2023 8:05 AM ENTRY LEVEL BUSINESS ANALYST Anette ClementeCata john APRN.NJarrettPJarrett, PetraNJarrettPJarrett LAB B LOOD ADD-ON Performing Organization Address [facility] Co de Phone Number [facility] [address] [place] [address], [facility] DTL [facility] [address] [place] [address] * (ABNORMAL) CBC without Differential (09/23/2023 7:34 AM ENTRY LEVEL BUSINESS ANALYST) Pathologist [facility] Hemoglobin 8.2(L) 13.2 - 16.6 g/dL 09/23/2023 8:13 AM ENTRY LEVEL BUSINESS ANALYST DTL Hematocrit 24.2(L) 38.3 - 48.6 % 09/23/2023 8:13 AM ENTRY LEVEL BUSINESS ANALYST DTL Erythrocytes 2.67(L) 4.35 - 5.65 x10(12)/L 09/23/2023 8:13 AM ENTRY LEVEL BUSINESS ANALYST DTL MCV 90.6 78.2 - 97.9 fL 09/23/2023 8:13 AM ENTRY LEVEL BUSINESS ANALYST DTL RBC Distrib Width 13.2 11.8 - 14.5 % 09/23/2023 8:13 AM ENTRY LEVEL BUSINESS ANALYST DTL Platelet Count 147 135 - 317 x10(9)/L 09/23/2023 8:13 AM ENTRY LEVEL BUSINESS ANALYST DTL Leukocytes 8.3 3.4 - 9.6 x10(9)/L 09/23/2023 8:13 AM ENTRY LEVEL BUSINESS ANALYST DTL Blood (Blood, Venous) 09/23/2023 7:34 AM ENTRY LEVEL BUSINESS ANALYST 09/23/2023 8:04 AM ENTRY LEVEL BUSINESS ANALYST Jenny Jay, BKolby., B.A.O. LAB BLOOD ADD-ON Performing Organization Address City/[facility]/ZIP Co de Phone Number [facility] [address] [place] [address], [facility] DTL [facility] [address] [place] [address] * (ABNORMAL) Hepatic Function Panel (09/23/2023 7:31 AM ENTRY LEVEL BUSINESS ANALYST) Bilirubin, Total, S 0.5 0.0 - 1.2 mg/dL 09/23/2023 9:47 AM ENTRY LEVEL BUSINESS ANALYST DTL Bilirubin, Direct, S <0.2 0.0 - 0.3 mg/dL 09/23/2023 9:47 AM ENTRY LEVEL BUSINESS ANALYST DTL Aspartate Aminotransferase (AST), S 21 8 - 48 U/L 09/23/2023 9:47 AM ENTRY LEVEL BUSINESS ANALYST DTL Alanine Aminotransferase (ALT), S 9 7 - 55 U/L 09/23/2023 9:47 AM ENTRY LEVEL BUSINESS ANALYST DTL Alkaline Phosphatase, S 63 40 - 129 U/L 09/23/2023 9:47 AM ENTRY LEVEL BUSINESS ANALYST DTL Albumin, S 3.0(L) 3.5 - 5.0 g/dL 09/23/2023 9:47 AM ENTRY LEVEL BUSINESS ANALYST DTL Protein, Total, S 4.9(L) 6.3 - 7.9 g/dL 09/23/2023 9:47 AM ENTRY LEVEL BUSINESS ANALYST DTL Blood (Blood, Venous) 09/23/2023 7:31 AM ENTRY LEVEL BUSINESS ANALYST 09/23/2023 9:19 AM ENTRY LEVEL BUSINESS ANALYST Laila Basurto P.A.-C. LAB BLOOD ADD -ON [facility] [address] [place] [address], [facility] DTL [facility] [address] [place] [address] * (ABNORMAL) Glucose, POCT (09/23/2023 7:24 AM ENTRY LEVEL BUSINESS ANALYST) Glucose, POCT, B 147(H) 70 - 140 mg/dL 09/23/2023 7:40 AM ENTRY LEVEL BUSINESS ANALYST PCLX Site Capillary 09/23/2023 7:40 AM ENTRY LEVEL BUSINESS ANALYST PCLX Last Intake 3-4 hours 09/23/2023 7:40 AM ENTRY LEVEL BUSINESS ANALYST PCLX Blood 09/23/2023 7:24 AM ENTRY LEVEL BUSINESS ANALYST 09/23/2023 7:40 AM ENTRY LEVEL BUSINESS ANALYST Unknown Provider LAB POCT ORDERABLES- MANUAL POC [facility] [address] [place] [address], [facility] PCLX [facility] POC [address] [place] [address] * (ABNORMAL) Basic Metabolic Panel (09/22/2023 11:14 PM ENTRY LEVEL BUSINESS ANALYST) Potassium, P 4.4 3.6 - 5.2 mmol/L 09/22/2023 11:40 PM ENTRY LEVEL BUSINESS ANALYST STMA Sodium, P 134(L) 135 - 145 mmol/L 09/22/2023 11:40 PM ENTRY LEVEL BUSINESS ANALYST STMA Chloride, P 94(L) 98 - 107 mmol/L 09/22/2023 11:40 PM ENTRY LEVEL BUSINESS ANALYST STMA Bicarbonate, P 28 22 - 29 mmol/L 09/22/2023 11:40 PM ENTRY LEVEL BUSINESS ANALYST STMA Anion Gap, P 12 7 - 15 09/22/2023 11:40 PM ENTRY LEVEL BUSINESS ANALYST STMA BUN (Blood Urea Nitrogen), P 40(H) 8 - 24 mg/dL 09/22/2023 11:40 PM ENTRY LEVEL BUSINESS ANALYST STMA Creatinine 2.38(H) 0.74 - 1.35 mg/dL 09/22/2023 11:40 PM ENTRY LEVEL BUSINESS ANALYST STMA Estimated GFR (eGFR) 28(L) >=60 mL/min/BSA 09/22/2023 11:40 PM ENTRY LEVEL BUSINESS ANALYST STMA Comment: Estimated GFR calculated using the 2020 CKD_EPI creatinine equation. Calcium, Total, P 8.7(L) 8.8 - 10.2 mg/dL 09/22/2023 11:40 PM ENTRY LEVEL BUSINESS ANALYST STMA Glucose, P 146(H) 70 - 140 mg/dL 09/22/2023 11:40 PM ENTRY LEVEL BUSINESS ANALYST STMA Blood (Blood, Venous) 09/22/2023 11:14 PM ENTRY LEVEL BUSINESS ANALYST 09/22/2023 11:24 PM ENTRY LEVEL BUSINESS ANALYST Marcela Lee APRN, C.N.P., M.S.N. LAB BLOO D ADD-ON [facility] [address] [place], [place] [address] [address] [place] [address] * (ABNORMAL) CBC without Differential (09/22/2023 11:14 PM ENTRY LEVEL BUSINESS ANALYST) Pathologist [facility] Hemoglobin 8.6(L) 13.2 - 16.6 g/dL 09/22/2023 11:26 PM ENTRY LEVEL BUSINESS ANALYST STMA Hematocrit 25.7(L) 38.3 - 48.6 % 09/22/2023 11:26 PM ENTRY LEVEL BUSINESS ANALYST STMA Erythrocytes 2.89(L) 4.35 - 5.65 x10(12)/L 09/22/2023 11:26 PM ENTRY LEVEL BUSINESS ANALYST STMA MCV 88.9 78.2 - 97.9 fL 09/22/2023 11:26 PM ENTRY LEVEL BUSINESS ANALYST STMA RBC Distrib Width 13.2 11.8 - 14.5 % 09/22/2023 11:26 PM ENTRY LEVEL BUSINESS ANALYST STMA Platelet Count 146 135 - 317 x10(9)/L 09/22/2023 11:26 PM ENTRY LEVEL BUSINESS ANALYST STMA Leukocytes 9.3 3.4 - 9.6 x10(9)/L 09/22/2023 11:26 PM ENTRY LEVEL BUSINESS ANALYST STMA Blood (Blood, Venous) 09/22/2023 11:14 PM ENTRY LEVEL BUSINESS ANALYST 09/22/2023 11:24 PM ENTRY LEVEL BUSINESS ANALYST Marcela Lee APRN C.N.P., M.S.N. LAB BLOO D ADD-ON [facility] [address] [place], [place] [id number] [place] [address] [address] [place] [address] * (ABNORMAL) Glucose, POCT (09/22/2023 9:29 PM ENTRY LEVEL BUSINESS ANALYST) Pathologist [facility] Glucose, POCT, B 159(H) 70 - 140 mg/dL 09/22/2023 9:31 PM ENTRY LEVEL BUSINESS ANALYST PCLX Blood 09/22/2023 9:29 PM ENTRY LEVEL BUSINESS ANALYST 09/22/2023 9:32 PM ENTRY LEVEL BUSINESS ANALYST Unknown Provider LAB POCT ORDERABLES- MANUAL POC [facility] [address] [place] [address], [facility] PCLX [facility] POC [address] [place] [address] * Transfuse Red Blood Cells : (09/22/2023 4:21 PM ENTRY LEVEL BUSINESS ANALYST) Laila Basurto P.A.-C. BLOOD TRANSFU RAHUL ORDERABLES * Transfuse Red Blood Cells : , 1 Units (09/22/2023 4:21 PM ENTRY LEVEL BUSINESS ANALYST) Laila Barbosadeen P.A.-C. BLOOD TRANSFU RAHUL ORDERABLES * (ABNORMAL) Glucose, POCT (09/22/2023 11:27 AM ENTRY LEVEL BUSINESS ANALYST) Glucose, POCT, B 192(H) 70 - 140 mg/dL 09/22/2023 11:36 AM ENTRY LEVEL BUSINESS ANALYST PCLX Site Capillary 09/22/2023 11:36 AM ENTRY LEVEL BUSINESS ANALYST PCLX Last Intake 1-2 hours 09/22/2023 11:36 AM ENTRY LEVEL BUSINESS ANALYST PCLX Blood 09/22/2023 11:2 7 AM ENTRY LEVEL BUSINESS ANALYST 09/22/2023 11:37 AM ENTRY LEVEL BUSINESS ANALYST Unknown Provider LAB POCT ORDERABLES- MANUAL Performing Organization Address [facility] Co de Phone Number POC [facility] [address] [place] [address], [facility] PCLX [facility] [address] [place] [address] * Glucose, POCT (09/22/2023 7:34 AM ENTRY LEVEL BUSINESS ANALYST) Glucose, POCT, B 133 70 - 140 mg/dL 09/22/2023 7:46 AM ENTRY LEVEL BUSINESS ANALYST PCLX Site Capillary 09/22/2023 7:46 AM ENTRY LEVEL BUSINESS ANALYST PCLX Last Intake 3-4 hours 09/22/2023 7:46 AM ENTRY LEVEL BUSINESS ANALYST PCLX Blood 09/22/2023 7:34 AM ENTRY LEVEL BUSINESS ANALYST 09/22/2023 7:46 AM ENTRY LEVEL BUSINESS ANALYST Unknown Provider LAB POCT ORDERABLES- MANUAL Performing Organization Address City/[facility]/ZIP Co de Phone Number POC [facility] [address] [place] [address], [facility] PCLX [facility] POC [address] [place] [address] * (ABNORMAL) Basic Metabolic Panel (09/22/2023 7:04 AM ENTRY LEVEL BUSINESS ANALYST) [facility] Potassium, S 4.5 3.6 - 5.2 mmol/L 09/22/2023 8:18 AM ENTRY LEVEL BUSINESS ANALYST DTL Sodium, S 135 135 - 145 mmol/L 09/22/2023 8:18 AM ENTRY LEVEL BUSINESS ANALYST DTL Chloride, S 99 98 - 107 mmol/L 09/22/2023 8:18 AM ENTRY LEVEL BUSINESS ANALYST DTL Bicarbonate, S 28 22 - 29 mmol/L 09/22/2023 8:18 AM ENTRY LEVEL BUSINESS ANALYST DTL Anion Gap 8 7 - 15 09/22/2023 8:18 AM ENTRY LEVEL BUSINESS ANALYST DTL BUN (Blood Urea Nitrogen), S 37(H) 8 - 24 mg/dL 09/22/2023 8:18 AM ENTRY LEVEL BUSINESS ANALYST DTL Creatinine 2.38(H) 0.74 - 1.35 mg/dL 09/22/2023 8:18 AM ENTRY LEVEL BUSINESS ANALYST DTL Estimated GFR (eGFR) 28(L) >=60 mL/min/BSA 09/22/2023 8:18 AM ENTRY LEVEL BUSINESS ANALYST DTL Comment: Estimated GFR calculated using the 2020 CKD_EPI creatinine equation. Calcium, Total, S 8.5(L) 8.8 - 10.2 mg/dL 09/22/2023 8:18 AM ENTRY LEVEL BUSINESS ANALYST DTL Glucose, S 141(H) 70 - 140 mg/dL 09/22/2023 8:18 AM ENTRY LEVEL BUSINESS ANALYST DTL Blood (Blood, Venous) 09/22/2023 7:04 AM ENTRY LEVEL BUSINESS ANALYST 09/22/2023 7:58 AM ENTRY LEVEL BUSINESS ANALYST Laila Basurto P.A.-C. LAB BLOOD ADD -ON [facility] [address] [place] [address], [facility] DTL [facility] [address] [place] [address] * (ABNORMAL) Prothrombin Time (PT) (09/22/2023 7:04 AM ENTRY LEVEL BUSINESS ANALYST) Prothrombin Time, P 16.7(H) 9.4 - 12.5 sec 09/22/2023 7:53 AM ENTRY LEVEL BUSINESS ANALYST DTL INR 1.5 0.9 - 1.1 09/22/2023 7:53 AM ENTRY LEVEL BUSINESS ANALYST DTL Comment: ----ADDITIONAL INFORMATION---- Standard intensity warfarin therapeutic range: 2.0 to 3.0 ?? High intensity warfarin therapeutic range: 2.5 to 3.5 Blood (Blood, Venous) 09/22/2023 7:04 AM ENTRY LEVEL BUSINESS ANALYST 09/22/2023 7:37 AM ENTRY LEVEL BUSINESS ANALYST Anette Hair APRN, C.N.P., D.N.P. LAB B LOOD ADD-ON [facility] [address] [place] [address], [facility] [address] [address] * (ABNORMAL) CBC without Differential (09/22/2023 7:04 AM ENTRY LEVEL BUSINESS ANALYST) Pathologist [facility] Hemoglobin 7.3(L) 13.2 - 16.6 g/dL 09/22/2023 7:47 AM ENTRY LEVEL BUSINESS ANALYST DTL Hematocrit 21.0(L) 38.3 - 48.6 % 09/22/2023 7:47 AM ENTRY LEVEL BUSINESS ANALYST DTL Erythrocytes 2.36(L) 4.35 - 5.65 x10(12)/L 09/22/2023 7:47 AM ENTRY LEVEL BUSINESS ANALYST DTL MCV 89.0 78.2 - 97.9 fL 09/22/2023 7:47 AM ENTRY LEVEL BUSINESS ANALYST DTL RBC Distrib Width 13.1 11.8 - 14.5 % 09/22/2023 7:47 AM ENTRY LEVEL BUSINESS ANALYST DTL Platelet Count 129(L) 135 - 317 x10(9)/L 09/22/2023 8:40 AM ENTRY LEVEL BUSINESS ANALYST DTL Comment:Results confirmed by smear, no clumping or interference seen. Leukocytes 9.2 3.4 - 9.6 x10(9)/L 09/22/2023 8:40 AM ENTRY LEVEL BUSINESS ANALYST DTL Blood (Blood, Venous) 09/22/2023 7:04 AM ENTRY LEVEL BUSINESS ANALYST 09/22/2023 7:37 AM ENTRY LEVEL BUSINESS ANALYST Jenny Jay, BKolby., B.A.O. LAB BLOOD ADD-ON [facility] [address] [place] [address], [facility] DTL [facility] [address] [place] [address] * Type and Screen (with Reflex Antibody ID) (09/22/2023 7:01 AM ENTRY LEVEL BUSINESS ANALYST) Pathologist [facility] ABORh A Neg Not applicable 09/22/2023 2:10 PM ENTRY LEVEL BUSINESS ANALYST STRM Antibody Screen Negative Negative 09/22/2023 2:19 PM ENTRY LEVEL BUSINESS ANALYST STRM Type & Screen Expiration 09/25/2023 23:59 09/22/2023 2:10 PM ENTRY LEVEL BUSINESS ANALYST STRM Testing Location Mercedes DEFAULT 09/22/2023 1:41 PM ENTRY LEVEL BUSINESS ANALYST STRM Blood (Blood, Venous) 09/22/2023 7:01 AM ENTRY LEVEL BUSINESS ANALYST 09/22/2023 1:41 PM ENTRY LEVEL BUSINESS ANALYST Laila Basurto P.A.-C. LAB BLOOD BAN K TEST ORDERABLES Performing Organization Address [facility] Co de Phone Number [facility] [address] [place] [address], [facility] STRM [facility] [address] [place] [address] * (ABNORMAL) Glucose, POCT (09/21/2023 10:52 PM ENTRY LEVEL BUSINESS ANALYST) [facility] Glucose, POCT, B 161(H) 70 - 140 mg/dL 09/21/2023 10:57 PM ENTRY LEVEL BUSINESS ANALYST PCLX Site Capillary 09/21/2023 10:57 PM ENTRY LEVEL BUSINESS ANALYST PCLX Last Intake 2-3 hours 09/21/2023 10:57 PM ENTRY LEVEL BUSINESS ANALYST PCLX Blood 09/21/2023 10:5 2 PM ENTRY LEVEL BUSINESS ANALYST 09/21/2023 10:57 PM ENTRY LEVEL BUSINESS ANALYST Unknown Provider LAB POCT ORDERABLES- MANUAL POC [facility] [address] [place] [address], [place] [facility] POC [address] [place] [address] * (ABNORMAL) Glucose, POCT (09/21/2023 7:07 PM ENTRY LEVEL BUSINESS ANALYST) Glucose, POCT, B 141(H) 70 - 140 mg/dL 09/21/2023 7:20 PM ENTRY LEVEL BUSINESS ANALYST PCLX Site Capillary 09/21/2023 7:20 PM ENTRY LEVEL BUSINESS ANALYST PCLX Last Intake <1 hour 09/21/2023 7:20 PM ENTRY LEVEL BUSINESS ANALYST PCLX Blood 09/21/2023 7:07 PM ENTRY LEVEL BUSINESS ANALYST 09/21/2023 7:20 PM ENTRY LEVEL BUSINESS ANALYST Unknown Provider LAB POCT ORDERABLES- MANUAL Performing Organization Address City/[facility]/ZIP Co de Phone Number POC [facility] [address] [place] [address], [place] [facility] POC [address] [place] [address] * (ABNORMAL) Glucose, POCT (09/21/2023 11:27 AM ENTRY LEVEL BUSINESS ANALYST) Glucose, POCT, B 190(H) 70 - 140 mg/dL 09/21/2023 11:29 AM ENTRY LEVEL BUSINESS ANALYST PCLX Site ARTLINE 09/21/2023 11:29 AM ENTRY LEVEL BUSINESS ANALYST PCLX Blood 09/21/2023 11:2 7 AM ENTRY LEVEL BUSINESS ANALYST 09/21/2023 11:29 AM ENTRY LEVEL BUSINESS ANALYST Unknown Provider LAB POCT ORDERABLES- MANUAL POC [facility] [address] [place] [address], [place] [facility] POC [address] [place] [address] * (ABNORMAL) Glucose, POCT (09/21/2023 8:50 AM ENTRY LEVEL BUSINESS ANALYST) Glucose, POCT, B 145(H) 70 - 140 mg/dL 09/21/2023 8:52 AM ENTRY LEVEL BUSINESS ANALYST PCLX Site ARTLINE 09/21/2023 8:52 AM ENTRY LEVEL BUSINESS ANALYST PCLX Blood 09/21/2023 8:50 AM ENTRY LEVEL BUSINESS ANALYST 09/21/2023 8:52 AM ENTRY LEVEL BUSINESS ANALYST Unknown Provider LAB POCT ORDERABLES- MANUAL Performing Organization Address City/[facility] Co de Phone Number POC [facility] [address] [place] [address], [facility] POC [address] [place] [address] * (ABNORMAL) Prothrombin Time (PT) (09/21/2023 7:47 AM ENTRY LEVEL BUSINESS ANALYST) Prothrombin Time, P 13.8(H) 9.4 - 12.5 sec 09/21/2023 7:58 AM ENTRY LEVEL BUSINESS ANALYST STMA INR 1.3 0.9 - 1.1 09/21/2023 7:58 AM ENTRY LEVEL BUSINESS ANALYST STMA Comment: ----ADDITIONAL INFORMATION---- Standard intensity warfarin therapeutic range: 2.0 to 3.0 ?? High intensity warfarin therapeutic range: 2.5 to 3.5 Blood (Blood, Venous) 09/21/2023 7:47 AM ENTRY LEVEL BUSINESS ANALYST 09/21/2023 7:51 AM ENTRY LEVEL BUSINESS ANALYST Anette Hair APRN, C.N.P., D.N.P. LAB B LOOD ADD-ON Performing Organization Address [facility] de Phone Number [facility] [address] [place] [address], [facility] STMA [facility] [address] [place] [address] * Patient Status (09/21/2023 6:35 AM ENTRY LEVEL BUSINESS ANALYST) Pathologist [facility] FIO2 0.21 0.21=AIR 09/21/2023 6:39 AM ENTRY LEVEL BUSINESS ANALYST STMA Spont. breaths/min 18 09/21/2023 6:39 AM ENTRY LEVEL BUSINESS ANALYST STMA Blood 09/21/2023 6:35 AM ENTRY LEVEL BUSINESS ANALYST 09/21/2023 6:39 AM ENTRY LEVEL BUSINESS ANALYST Bryce Wills M.D. LAB BLOOD NON ADD-ON Performing Organization Address City/[facility] Co de Phone Number [facility] [address] [place] [address], [facility] [address] [place] [address] * (ABNORMAL) Blood Gas with Coox, Arterial (09/21/2023 6:35 AM ENTRY LEVEL BUSINESS ANALYST) pO2 67(L) 83 - 108 mm Hg 09/21/2023 6:41 AM ENTRY LEVEL BUSINESS ANALYST STMA pCO2 46 35 - 48 mm Hg 09/21/2023 6:41 AM ENTRY LEVEL BUSINESS ANALYST STMA pH 7.41 7.35 - 7.45 pH 09/21/2023 6:41 AM ENTRY LEVEL BUSINESS ANALYST STMA Base Excess 4(H) -2 - 3 mmol/L 09/21/2023 6:41 AM ENTRY LEVEL BUSINESS ANALYST STMA HCO3 29(H) 22 - 26 mmol/L 09/21/2023 6:41 AM ENTRY LEVEL BUSINESS ANALYST STMA Hemoglobin, Venous 8.2(L) 13.2 - 16.6 g/dL 09/21/2023 6:41 AM ENTRY LEVEL BUSINESS ANALYST STMA O2Hb 92.5(L) 94.0 - 98.0 % 09/21/2023 6:41 AM ENTRY LEVEL BUSINESS ANALYST STMA COHb 2.0 <3.0 % 09/21/2023 6:42 AM ENTRY LEVEL BUSINESS ANALYST STMA MetHb <1.0 <1.5 % 09/21/2023 6:41 AM ENTRY LEVEL BUSINESS ANALYST STMA CtO2 10.8(L) 18.0 - 21.0 vol % 09/21/2023 6:42 AM ENTRY LEVEL BUSINESS ANALYST STMA Arterial Sample Site Art Line 09/21/2023 6:41 AM ENTRY LEVEL BUSINESS ANALYST STMA Comment:Mina's test not don e. Blood (Blood, Arterial) 09/21/2023 6:35 AM ENTRY LEVEL BUSINESS ANALYST 09/21/2023 6:39 AM ENTRY LEVEL BUSINESS ANALYST Bryce Wills M.D. LAB BLOOD NON ADD-ON [facility] [address] [place] [address], [facility] [address] [place] [address] * (ABNORMAL) Glucose, POCT (09/21/2023 6:31 AM ENTRY LEVEL BUSINESS ANALYST) Pathologist [facility] Glucose, POCT, B 164(H) 70 - 140 mg/dL 09/21/2023 6:32 AM ENTRY LEVEL BUSINESS ANALYST PCLX Site ARTLINE 09/21/2023 6:32 AM ENTRY LEVEL BUSINESS ANALYST PCLX Blood 09/21/2023 6:31 AM ENTRY LEVEL BUSINESS ANALYST 09/21/2023 6:32 AM ENTRY LEVEL BUSINESS ANALYST Unknown Provider LAB POCT ORDERABLES- MANUAL Performing Organization Address City/State/[facility] Co de Phone Number POC [facility] [address] [place] [address], [facility] POC [address] [place] [address] * (ABNORMAL) Basic Metabolic Panel (09/21/2023 5:11 AM ENTRY LEVEL BUSINESS ANALYST) Pathologist [facility] Potassium, P 5.1 3.6 - 5.2 mmol/L 09/21/2023 5:45 AM ENTRY LEVEL BUSINESS ANALYST STMA Sodium, P 135 135 - 145 mmol/L 09/21/2023 5:45 AM ENTRY LEVEL BUSINESS ANALYST STMA Chloride, P 101 98 - 107 mmol/L 09/21/2023 5:45 AM ENTRY LEVEL BUSINESS ANALYST STMA Bicarbonate, P 27 22 - 29 mmol/L 09/21/2023 5:45 AM ENTRY LEVEL BUSINESS ANALYST STMA Anion Gap, P 7 7 - 15 09/21/2023 5:45 AM ENTRY LEVEL BUSINESS ANALYST STMA BUN (Blood Urea Nitrogen), P 33(H) 8 - 24 mg/dL 09/21/2023 5:45 AM ENTRY LEVEL BUSINESS ANALYST STMA Creatinine 2.39(H) 0.74 - 1.35 mg/dL 09/21/2023 5:45 AM ENTRY LEVEL BUSINESS ANALYST STMA Estimated GFR (eGFR) 28(L) >=60 mL/min/BSA 09/21/2023 5:45 AM ENTRY LEVEL BUSINESS ANALYST STMA Comment: Estimated GFR calculated using the 2020 CKD_EPI creatinine equation. Calcium, Total, P 8.9 8.8 - 10.2 mg/dL 09/21/2023 5:45 AM ENTRY LEVEL BUSINESS ANALYST STMA Glucose, P 166(H) 70 - 140 mg/dL 09/21/2023 5:45 AM ENTRY LEVEL BUSINESS ANALYST STMA Blood (Blood, Venous) 09/21/2023 5:11 AM ENTRY LEVEL BUSINESS ANALYST 09/21/2023 5:25 AM ENTRY LEVEL BUSINESS ANALYST Enmanuel Edward P.A.-C. LAB BLOOD ADD-ON Performing Organization Address City/[facility]/ZIP Co de Phone Number [facility] [address] [place] [address] * (ABNORMAL) Phosphorus Inorganic (09/21/2023 5:11 AM ENTRY LEVEL BUSINESS ANALYST) Pathologist [facility] Phosphorus (Inorganic), S 5.4(H) 2.5 - 4.5 mg/dL 09/21/2023 6:03 AM ENTRY LEVEL BUSINESS ANALYST DTL Blood (Blood, Venous) 09/21/2023 5:11 AM ENTRY LEVEL BUSINESS ANALYST 09/21/2023 5:50 AM ENTRY LEVEL BUSINESS ANALYST Enmanuel Edward P.A.-C. LAB BLOOD ADD-ON Performing Organization Address City/[facility] Co de Phone Number [facility] [address] [place], [place] [id number] [place] [address] [address] [place] [address] * (ABNORMAL) Magnesium (09/21/2023 5:11 AM ENTRY LEVEL BUSINESS ANALYST) Pathologist [facility] Magnesium, S 2.4(H) 1.7 - 2.3 mg/dL 09/21/2023 6:03 AM ENTRY LEVEL BUSINESS ANALYST DTL Blood (Blood, Venous) 09/21/2023 5:11 AM ENTRY LEVEL BUSINESS ANALYST 09/21/2023 5:50 AM ENTRY LEVEL BUSINESS ANALYST Enmanuel Edward P.A.-C. LAB BLOOD ADD-ON Performing Organization Address City/[facility]/ZIP Co de Phone Number [facility] [address] [place], [place] [phone] [place] [address] [address] [place] [address] * (ABNORMAL) CBC without Differential (09/21/2023 5:11 AM ENTRY LEVEL BUSINESS ANALYST) Hemoglobin 8.1(L) 13.2 - 16.6 g/dL 09/21/2023 6:04 AM ENTRY LEVEL BUSINESS ANALYST DTL Hematocrit 23.3(L) 38.3 - 48.6 % 09/21/2023 6:04 AM ENTRY LEVEL BUSINESS ANALYST DTL Erythrocytes 2.64(L) 4.35 - 5.65 x10(12)/L 09/21/2023 6:04 AM ENTRY LEVEL BUSINESS ANALYST DTL MCV 88.3 78.2 - 97.9 fL 09/21/2023 6:04 AM ENTRY LEVEL BUSINESS ANALYST DTL RBC Distrib Width 13.8 11.8 - 14.5 % 09/21/2023 6:04 AM ENTRY LEVEL BUSINESS ANALYST DTL Platelet Count 139 135 - 317 x10(9)/L 09/21/2023 6:04 AM ENTRY LEVEL BUSINESS ANALYST DTL Leukocytes 12.5(H) 3.4 - 9.6 x10(9)/L 09/21/2023 6:04 AM ENTRY LEVEL BUSINESS ANALYST DTL Blood (Blood, Venous) 09/21/2023 5:11 AM ENTRY LEVEL BUSINESS ANALYST 09/21/2023 5:40 AM ENTRY LEVEL BUSINESS ANALYST Jenny Jay, B.Ch., B.A.O. LAB BLOOD ADD-ON [address] [address], [address] [address] * (ABNORMAL) Basic Metabolic Panel (09/21/2023 12:21 AM ENTRY LEVEL BUSINESS ANALYST) Potassium, P 5.3(H) 3.6 - 5.2 mmol/L 09/21/2023 1:08 AM ENTRY LEVEL BUSINESS ANALYST DTL Sodium, P 135 135 - 145 mmol/L 09/21/2023 1:08 AM ENTRY LEVEL BUSINESS ANALYST DTL Chloride, P 102 98 - 107 mmol/L 09/21/2023 1:08 AM ENTRY LEVEL BUSINESS ANALYST DTL Bicarbonate, P 25 22 - 29 mmol/L 09/21/2023 1:08 AM ENTRY LEVEL BUSINESS ANALYST DTL Anion Gap, P 8 7 - 15 09/21/2023 1:08 AM ENTRY LEVEL BUSINESS ANALYST DTL BUN (Blood Urea Nitrogen), P 30(H) 8 - 24 mg/dL 09/21/2023 1:08 AM ENTRY LEVEL BUSINESS ANALYST DTL Creatinine 2.42(H) 0.74 - 1.35 mg/dL 09/21/2023 1:08 AM ENTRY LEVEL BUSINESS ANALYST DTL Estimated GFR (eGFR) 28(L) >=60 mL/min/BSA 09/21/2023 1:08 AM ENTRY LEVEL BUSINESS ANALYST DTL Comment: Estimated GFR calculated using the 2020 CKD_EPI creatinine equation. Calcium, Total, P 8.9 8.8 - 10.2 mg/dL 09/21/2023 1:08 AM ENTRY LEVEL BUSINESS ANALYST DTL Glucose, P 170(H) 70 - 140 mg/dL 09/21/2023 1:08 AM ENTRY LEVEL BUSINESS ANALYST DTL Blood (Blood, Venous) 09/21/2023 12:21 AM ENTRY LEVEL BUSINESS ANALYST 09/21/2023 12:54 AM ENTRY LEVEL BUSINESS ANALYST Enmanuel Edawrd P.A.-C. LAB BLOOD ADD-ON Performing Organization Address City/[facility]/ZIP Co de Phone Number [facility] [address] [place] [address], [facility] [address] [place] [address] * (ABNORMAL) Glucose, POCT (09/20/2023 8:33 PM ENTRY LEVEL BUSINESS ANALYST) Pathologist [facility] Glucose, POCT, B 196(H) 70 - 140 mg/dL 09/20/2023 8:39 PM ENTRY LEVEL BUSINESS ANALYST PCLX Blood 09/20/2023 8:33 PM ENTRY LEVEL BUSINESS ANALYST 09/20/2023 8:39 PM ENTRY LEVEL BUSINESS ANALYST Unknown Provider LAB POCT ORDERABLES- MANUAL POC [facility] [address] [place] [address], [facility] PCLX [facility] [address] [place] [address] * Potassium (09/20/2023 8:33 PM ENTRY LEVEL BUSINESS ANALYST) Potassium, P 5.0 3.6 - 5.2 mmol/L 09/20/2023 8:56 PM ENTRY LEVEL BUSINESS ANALYST STMA Blood (Blood, Venous) 09/20/2023 8:33 PM ENTRY LEVEL BUSINESS ANALYST 09/20/2023 8:38 PM ENTRY LEVEL BUSINESS ANALYST Yenifer Mercado P.A.-C. LAB BLOOD ADD -ON [facility] [address] [place] [address], [facility] STMA [facility] [address] [place] [address] * (ABNORMAL) Glucose, POCT (09/20/2023 4:31 PM ENTRY LEVEL BUSINESS ANALYST) Pathologist [facility] Glucose, POCT, B 182(H) 70 - 140 mg/dL 09/20/2023 4:32 PM ENTRY LEVEL BUSINESS ANALYST PCLX Site ARTLINE 09/20/2023 4:32 PM ENTRY LEVEL BUSINESS ANALYST PCLX Blood 09/20/2023 4:31 PM ENTRY LEVEL BUSINESS ANALYST 09/20/2023 4:32 PM ENTRY LEVEL BUSINESS ANALYST Unknown Provider LAB POCT ORDERABLES- MANUAL Performing Organization Address City/[facility]/ZIP Co de Phone Number POC [facility] [address] [place] [address], [facility] POC [address] [place] [address] * (ABNORMAL) Basic Metabolic Panel (09/20/2023 4:27 PM ENTRY LEVEL BUSINESS ANALYST) [facility] Potassium, P 5.5(H) 3.6 - 5.2 mmol/L 09/20/2023 5:03 PM ENTRY LEVEL BUSINESS ANALYST STMA Sodium, P 136 135 - 145 mmol/L 09/20/2023 5:03 PM ENTRY LEVEL BUSINESS ANALYST STMA Chloride, P 102 98 - 107 mmol/L 09/20/2023 5:03 PM ENTRY LEVEL BUSINESS ANALYST STMA Bicarbonate, P 26 22 - 29 mmol/L 09/20/2023 5:03 PM ENTRY LEVEL BUSINESS ANALYST STMA Anion Gap, P 8 7 - 15 09/20/2023 5:03 PM ENTRY LEVEL BUSINESS ANALYST STMA BUN (Blood Urea Nitrogen), P 28(H) 8 - 24 mg/dL 09/20/2023 5:03 PM ENTRY LEVEL BUSINESS ANALYST STMA Creatinine 2.24(H) 0.74 - 1.35 mg/dL 09/20/2023 5:03 PM ENTRY LEVEL BUSINESS ANALYST STMA Estimated GFR (eGFR) 31(L) >=60 mL/min/BSA 09/20/2023 5:03 PM ENTRY LEVEL BUSINESS ANALYST STMA Comment: Estimated GFR calculated using the 2020 CKD_EPI creatinine equation. Calcium, Total, P 9.0 8.8 - 10.2 mg/dL 09/20/2023 5:03 PM ENTRY LEVEL BUSINESS ANALYST STMA Glucose, P 193(H) 70 - 140 mg/dL 09/20/2023 5:03 PM ENTRY LEVEL BUSINESS ANALYST STMA Blood (Blood, Venous) 09/20/2023 4:27 PM ENTRY LEVEL BUSINESS ANALYST 09/20/2023 4:36 PM ENTRY LEVEL BUSINESS ANALYST Yenifer Mecrado P.A.-C. LAB BLOOD ADD -ON [facility] [address] [place] [address], [facility] STMA [facility] [address] [place] [address] * (ABNORMAL) Glucose, POCT (09/20/2023 11:51 AM ENTRY LEVEL BUSINESS ANALYST) Pathologist [facility] Glucose, POCT, B 205(H) 70 - 140 mg/dL 09/20/2023 11:53 AM ENTRY LEVEL BUSINESS ANALYST PCLX Site ARTLINE 09/20/2023 11:53 AM ENTRY LEVEL BUSINESS ANALYST PCLX Last Intake 1-2 hours 09/20/2023 11:53 AM ENTRY LEVEL BUSINESS ANALYST PCLX Blood 09/20/2023 11:5 1 AM ENTRY LEVEL BUSINESS ANALYST 09/20/2023 11:53 AM ENTRY LEVEL BUSINESS ANALYST Unknown Provider LAB POCT ORDERABLES- MANUAL POC [facility] [address] [place] [address], [facility] POC [address] [place] [address] * (ABNORMAL) Basic Metabolic Panel (09/20/2023 11:51 AM ENTRY LEVEL BUSINESS ANALYST) Potassium, P 5.4(H) 3.6 - 5.2 mmol/L 09/20/2023 12:20 PM ENTRY LEVEL BUSINESS ANALYST STMA Sodium, P 137 135 - 145 mmol/L 09/20/2023 12:20 PM ENTRY LEVEL BUSINESS ANALYST STMA Chloride, P 103 98 - 107 mmol/L 09/20/2023 12:20 PM ENTRY LEVEL BUSINESS ANALYST STMA Bicarbonate, P 23 22 - 29 mmol/L 09/20/2023 12:20 PM ENTRY LEVEL BUSINESS ANALYST STMA Anion Gap, P 11 7 - 15 09/20/2023 12:20 PM ENTRY LEVEL BUSINESS ANALYST STMA BUN (Blood Urea Nitrogen), P 27(H) 8 - 24 mg/dL 09/20/2023 12:20 PM ENTRY LEVEL BUSINESS ANALYST STMA Creatinine 2.12(H) 0.74 - 1.35 mg/dL 09/20/2023 12:20 PM ENTRY LEVEL BUSINESS ANALYST STMA Estimated GFR (eGFR) 33(L) >=60 mL/min/BSA 09/20/2023 12:20 PM ENTRY LEVEL BUSINESS ANALYST STMA Comment: Estimated GFR calculated using the 2020 CKD_EPI creatinine equation. Calcium, Total, P 9.2 8.8 - 10.2 mg/dL 09/20/2023 12:20 PM ENTRY LEVEL BUSINESS ANALYST STMA Glucose, P 230(H) 70 - 140 mg/dL 09/20/2023 12:20 PM ENTRY LEVEL BUSINESS ANALYST STMA Blood (Blood, Venous) 09/20/2023 11:51 AM ENTRY LEVEL BUSINESS ANALYST 09/20/2023 12:00 PM ENTRY LEVEL BUSINESS ANALYST Lobito Melgar APRN, C.N.P., M.S.N. L AB BLOOD ADD-ON [facility] [address] [place] [address], [facility] STMA [facility] [address] [place] [address] * (ABNORMAL) Glucose, POCT (09/20/2023 6:30 AM ENTRY LEVEL BUSINESS ANALYST) Glucose, POCT, B 169(H) 70 - 140 mg/dL 09/20/2023 6:32 AM ENTRY LEVEL BUSINESS ANALYST PCLX Blood 09/20/2023 6:30 AM ENTRY LEVEL BUSINESS ANALYST 09/20/2023 6:33 AM ENTRY LEVEL BUSINESS ANALYST Unknown Provider LAB POCT ORDERABLES- MANUAL POC [facility] [address] [place] [address], [facility] POC [address] [place] [address] * Lactate, Whole Blood (09/20/2023 4:11 AM ENTRY LEVEL BUSINESS ANALYST) Pathologist [facility] Lactate, B 1.5 0.5 - 2.2 mmol/L 09/20/2023 4:18 AM ENTRY LEVEL BUSINESS ANALYST STMA Blood (Blood, Arterial) 09/20/2023 4:11 AM ENTRY LEVEL BUSINESS ANALYST 09/20/2023 4:15 AM ENTRY LEVEL BUSINESS ANALYST Lobito Melgar APRN C.N.P., M.S.N. L AB BLOOD NON ADD-ON [facility] [address] [place], [place] [id number] [place] [address] STMA [facility] [address] [place] [address] * Patient Status (09/20/2023 4:11 AM ENTRY LEVEL BUSINESS ANALYST) Pathologist [facility] O2 Flow 2.0 L/min 09/20/2023 4:15 AM ENTRY LEVEL BUSINESS ANALYST STMA Device NC 09/20/2023 4:15 AM ENTRY LEVEL BUSINESS ANALYST STMA Spont. breaths/min 14 09/20/2023 4:15 AM ENTRY LEVEL BUSINESS ANALYST STMA Blood 09/20/2023 4:11 AM ENTRY LEVEL BUSINESS ANALYST 09/20/2023 4:15 AM ENTRY LEVEL BUSINESS ANALYST Jenny Jay, B.Ch., B.A.O. LAB BLOOD NON ADD-ON [facility] [address] [place] [address], [facility] STMA [facility] [address] [place] [address] * (ABNORMAL) Blood Gas without Coox, Arterial (09/20/2023 4:11 AM ENTRY LEVEL BUSINESS ANALYST) Pathologist [facility] pO2 79(L) 83 - 108 mm Hg 09/20/2023 4:18 AM ENTRY LEVEL BUSINESS ANALYST STMA pCO2 43 35 - 48 mm Hg 09/20/2023 4:18 AM ENTRY LEVEL BUSINESS ANALYST STMA pH 7.37 7.35 - 7.45 pH 09/20/2023 4:18 AM ENTRY LEVEL BUSINESS ANALYST STMA Base Excess 0 -2 - 3 mmol/L 09/20/2023 4:18 AM ENTRY LEVEL BUSINESS ANALYST STMA HCO3 25 22 - 26 mmol/L 09/20/2023 4:18 AM ENTRY LEVEL BUSINESS ANALYST STMA Arterial Sample Site Art Line 09/20/2023 4:18 AM ENTRY LEVEL BUSINESS ANALYST STMA Comment:Mina's test not don e. Blood (Blood, Arterial) 09/20/2023 4:11 AM ENTRY LEVEL BUSINESS ANALYST 09/20/2023 4:15 AM ENTRY LEVEL BUSINESS ANALYST Jenny Jay, B.Ch., B.A.O. LAB BLOOD NON ADD-ON [facility] [address] [place] [address], [facility] [address] [place] [address] * (ABNORMAL) CBC without Differential (09/20/2023 4:09 AM ENTRY LEVEL BUSINESS ANALYST) Pathologist [facility] Hemoglobin 9.1(L) 13.2 - 16.6 g/dL 09/20/2023 4:51 AM ENTRY LEVEL BUSINESS ANALYST DTL Hematocrit 25.8(L) 38.3 - 48.6 % 09/20/2023 4:51 AM ENTRY LEVEL BUSINESS ANALYST DTL Erythrocytes 2.99(L) 4.35 - 5.65 x10(12)/L 09/20/2023 4:51 AM ENTRY LEVEL BUSINESS ANALYST DTL MCV 86.3 78.2 - 97.9 fL 09/20/2023 4:51 AM ENTRY LEVEL BUSINESS ANALYST DTL RBC Distrib Width 13.6 11.8 - 14.5 % 09/20/2023 4:51 AM ENTRY LEVEL BUSINESS ANALYST DTL Platelet Count 179 135 - 317 x10(9)/L 09/20/2023 4:51 AM ENTRY LEVEL BUSINESS ANALYST DTL Leukocytes 11.3(H) 3.4 - 9.6 x10(9)/L 09/20/2023 4:51 AM ENTRY LEVEL BUSINESS ANALYST DTL Blood (Blood, Venous) 09/20/2023 4:09 AM ENTRY LEVEL BUSINESS ANALYST 09/20/2023 4:42 AM ENTRY LEVEL BUSINESS ANALYST Raven BlackCh., B.A.O. LAB BLOOD ADD-ON [facility] [address] [place] [address], [facility] DTL [facility] [address] [place] [address] * (ABNORMAL) Basic Metabolic Panel (09/20/2023 4:09 AM ENTRY LEVEL BUSINESS ANALYST) Pathologist [facility] Potassium, S 5.2 3.6 - 5.2 mmol/L 09/20/2023 5:12 AM ENTRY LEVEL BUSINESS ANALYST DTL Sodium, S 142 135 - 145 mmol/L 09/20/2023 5:12 AM ENTRY LEVEL BUSINESS ANALYST DTL Chloride, S 107 98 - 107 mmol/L 09/20/2023 5:12 AM ENTRY LEVEL BUSINESS ANALYST DTL Bicarbonate, S 23 22 - 29 mmol/L 09/20/2023 5:12 AM ENTRY LEVEL BUSINESS ANALYST DTL Anion Gap 12 7 - 15 09/20/2023 5:12 AM ENTRY LEVEL BUSINESS ANALYST DTL BUN (Blood Urea Nitrogen), S 23 8 - 24 mg/dL 09/20/2023 5:12 AM ENTRY LEVEL BUSINESS ANALYST DTL Creatinine 1.88(H) 0.74 - 1.35 mg/dL 09/20/2023 5:12 AM ENTRY LEVEL BUSINESS ANALYST DTL Estimated GFR (eGFR) 38(L) >=60 mL/min/BSA 09/20/2023 5:12 AM ENTRY LEVEL BUSINESS ANALYST DTL Comment: Estimated GFR calculated using the 2020 CKD_EPI creatinine equation. Calcium, Total, S 9.6 8.8 - 10.2 mg/dL 09/20/2023 5:12 AM ENTRY LEVEL BUSINESS ANALYST DTL Glucose, S 162(H) 70 - 140 mg/dL 09/20/2023 5:12 AM ENTRY LEVEL BUSINESS ANALYST DTL Blood (Blood, Venous) 09/20/2023 4:09 AM ENTRY LEVEL BUSINESS ANALYST 09/20/2023 4:57 AM ENTRY LEVEL BUSINESS ANALYST Jenny Jay B.Ch., B.A.O. LAB BLOOD ADD-ON [facility] [address] [place], [place] [id number] [place] [address] 200 [place] [address] * APTT (Activated Partial Thromboplastin Time) (09/20/2023 4:09 AM ENTRY LEVEL BUSINESS ANALYST) Activated Partial Thrombopl Time, P 26 25 - 37 sec 09/20/2023 5:19 AM ENTRY LEVEL BUSINESS ANALYST DTL Blood (Blood, Venous) 09/20/2023 4:09 AM ENTRY LEVEL BUSINESS ANALYST 09/20/2023 4:43 AM ENTRY LEVEL BUSINESS ANALYST Jenny Jay, Nicky.Ch., B.A.O. LAB BLOOD ADD-ON [facility] [address] [place] [address] * Prothrombin Time (PT) (09/20/2023 4:09 AM ENTRY LEVEL BUSINESS ANALYST) Prothrombin Time, P 12.2 9.4 - 12.5 sec 09/20/2023 5:19 AM ENTRY LEVEL BUSINESS ANALYST DTL INR 1.1 0.9 - 1.1 09/20/2023 5:19 AM ENTRY LEVEL BUSINESS ANALYST DTL Comment: ----ADDITIONAL INFORMATION---- Standard intensity warfarin therapeutic range: 2.0 to 3.0 ?? High intensity warfarin therapeutic range: 2.5 to 3.5 Blood (Blood, Venous) 09/20/2023 4:09 AM ENTRY LEVEL BUSINESS ANALYST 09/20/2023 4:43 AM ENTRY LEVEL BUSINESS ANALYST Jenny Jay, Nicky.Ch., B.A.O. LAB BLOOD ADD-ON [facility] [address] [place], [place] [id number] [place] [address] * (ABNORMAL) Magnesium (09/20/2023 4:09 AM ENTRY LEVEL BUSINESS ANALYST) Magnesium, S 2.7(H) 1.7 - 2.3 mg/dL 09/20/2023 5:12 AM ENTRY LEVEL BUSINESS ANALYST DTL Blood (Blood, Venous) 09/20/2023 4:09 AM ENTRY LEVEL BUSINESS ANALYST 09/20/2023 4:57 AM ENTRY LEVEL BUSINESS ANALYST Jenny Jay, BKolby., B.A.O. LAB BLOOD ADD-ON [facility] [address] [place] [address], [place] [facility] [address] [place] [address] * DX Chest Portable with AM Rounds 1 View (09/20/2023 3:33 AM ENTRY LEVEL BUSINESS ANALYST) Anatomical Region Laterality Modality Chest, Thoracic RST LOS, Tho racic ARZ LOS, Thoracic FLA LOS N/A Digital Radiography 09/20/2023 5:18 AM ENTRY LEVEL BUSINESS ANALYST Impressions 09/20/2023 5:20 AM ENTRY LEVEL BUSINESS ANALYST Compared to 09/19/2023. Extubation. Removal of right IJ SGC, sheath remains. Slightly decreased lung volumes. No other significant change. Pulmonary vascular congestion. Bibasilar atelectasis. No definite pneumothorax. Trace pneumomediastinum. Enlarged cardiac silhouette. Retrocardiac atelectasis/consolidation. Azygous fissure. Sternotomy. Mediastinal clips and drains. Loop recorder. Narrative 09/20/2023 5:20 AM ENTRY LEVEL BUSINESS ANALYST EXAM: ??DX CHEST PORTABLE WITH AM ROUNDS [...] Risk Score, Random, Urine (09/20/2023 3:24 AM ENTRY LEVEL BUSINESS ANALYST) TIMP2/IGFBP7 MANJEET Risk Score, U 0.45(H) <0.30 (ng/mL)(2) /1000 09/20/2023 4:12 AM ENTRY LEVEL BUSINESS ANALYST [facility] Comment: ----ADDITIONAL INFORMATION---- <0.30= <0.30 is considered low risk for acute kidney injury. 0.30-2.00= 0.30-2.00 indicates increased risk for acute kidney injury. >2.00= >2.00 indicates high risk for acute kidney injury. Urine (Urine, Midstream) 09/20/2023 3:24 AM ENTRY LEVEL BUSINESS ANALYST 09/20/2023 3:24 AM ENTRY LEVEL BUSINESS ANALYST Jenny Jay B.Ch., B.A.O. LAB URINE ORDERABLES Performing Organization Address City/[facility] Co de Phone Number [place] [address] [place] [address], [facility] [address] [place] [address] * Glucose, POCT (09/20/2023 1:17 AM ENTRY LEVEL BUSINESS ANALYST) Pathologist [facility] Glucose, POCT, B 136 70 - 140 mg/dL 09/20/2023 1:19 AM ENTRY LEVEL BUSINESS ANALYST PCLX Site ARTLINE 09/20/2023 1:19 AM ENTRY LEVEL BUSINESS ANALYST PCLX Blood 09/20/2023 1:17 AM ENTRY LEVEL BUSINESS ANALYST 09/20/2023 1:19 AM ENTRY LEVEL BUSINESS ANALYST Unknown Provider LAB POCT ORDERABLES- MANUAL Performing Organization Address City/State/[facility] Co de Phone Number POC [facility] [address] [place] [address], [facility] PCLX [facility]OC [address] [place] [address] * Glucose, POCT (09/19/2023 11:58 PM ENTRY LEVEL BUSINESS ANALYST) Glucose, POCT, B 133 70 - 140 mg/dL 09/19/2023 11:59 PM ENTRY LEVEL BUSINESS ANALYST PCLX Site ARTLINE 09/19/2023 11:59 PM ENTRY LEVEL BUSINESS ANALYST PCLX Blood 09/19/2023 11:5 8 PM ENTRY LEVEL BUSINESS ANALYST 09/19/2023 11:59 PM ENTRY LEVEL BUSINESS ANALYST Unknown Provider LAB POCT ORDERABLES- MANUAL Performing Organization Address [facility] Co de Phone Number [facility] [address] [place] [address], [facility] PCLX [facility] [address] [place] [address] * (ABNORMAL) Glucose, POCT (09/19/2023 11:20 PM ENTRY LEVEL BUSINESS ANALYST) Glucose, POCT, B 148(H) 70 - 140 mg/dL 09/19/2023 11:22 PM ENTRY LEVEL BUSINESS ANALYST PCLX Site ARTLINE 09/19/2023 11:22 PM ENTRY LEVEL BUSINESS ANALYST PCLX Blood 09/19/2023 11:2 0 PM ENTRY LEVEL BUSINESS ANALYST 09/19/2023 11:22 PM ENTRY LEVEL BUSINESS ANALYST Unknown Provider LAB POCT ORDERABLES- MANUAL Performing Organization Address City/[facility] Co de Phone Number POC [facility] [address] [place] [address], [facility] PCLX [facility] [address] [place] [address] * (ABNORMAL) Lactate, Whole Blood (09/19/2023 10:58 PM ENTRY LEVEL BUSINESS ANALYST) Lactate, B 2.6(H) 0.5 - 2.2 mmol/L 09/19/2023 11:05 PM ENTRY LEVEL BUSINESS ANALYST STMA Blood (Blood, Arterial) 09/19/2023 10:58 PM ENTRY LEVEL BUSINESS ANALYST 09/19/2023 11:04 PM ENTRY LEVEL BUSINESS ANALYST Rahda Encarnacion APRNNGrant., M.S.N. L AB BLOOD NON ADD-ON [facility] [address] [place] [address], [facility] STMA [facility] [address] [place] [address] * (ABNORMAL) Glucose, POCT (09/19/2023 10:27 PM ENTRY LEVEL BUSINESS ANALYST) Pathologist [facility] Glucose, POCT, B 160(H) 70 - 140 mg/dL 09/19/2023 10:30 PM ENTRY LEVEL BUSINESS ANALYST PCLX Site ARTLINE 09/19/2023 10:30 PM ENTRY LEVEL BUSINESS ANALYST PCLX Blood 09/19/2023 10:2 7 PM ENTRY LEVEL BUSINESS ANALYST 09/19/2023 10:30 PM ENTRY LEVEL BUSINESS ANALYST Unknown Provider LAB POCT ORDERABLES- MANUAL Performing Organization Address City/[facility] Co de Phone Number POC [facility] [address] [place] [address], [facility] PCLX [facility] [address] [place] [address] * (ABNORMAL) Glucose, POCT (09/19/2023 9:24 PM ENTRY LEVEL BUSINESS ANALYST) Pathologist [facility] Glucose, POCT, B 194(H) 70 - 140 mg/dL 09/19/2023 9:25 PM ENTRY LEVEL BUSINESS ANALYST PCLX Site ARTLINE 09/19/2023 9:25 PM ENTRY LEVEL BUSINESS ANALYST PCLX Blood 09/19/2023 9:24 PM ENTRY LEVEL BUSINESS ANALYST 09/19/2023 9:25 PM ENTRY LEVEL BUSINESS ANALYST Unknown Provider LAB POCT ORDERABLES- MANUAL Performing Organization Address City/[facility]/ZIP Co de Phone Number [facility] [address] [place] [address], [facility] PCLX [facility] [address] [place] [address] * ECG 12 Lead (09/19/2023 8:14 PM ENTRY LEVEL BUSINESS ANALYST) Pathologist [facility] Ventricular Rate ECG/Min 93 BPM MUSE MS Interval 134 ms MUSE QRSD Interval 84 ms MUSE QT Interval 374 ms MUSE QTC Interval 465 ms MUSE P Cecil 74 degrees MUSE R Cecil 14 degrees MUSE T Wave Cecil 58 degrees MUSE 09/19/2023 8:14 PM ENTRY LEVEL BUSINESS ANALYST 09/19/2023 8:36 PM ENTRY LEVEL BUSINESS ANALYST Impressions MUSE - 09/19/2023 8:36 PM ENTRY LEVEL BUSINESS ANALYST Normal sinus rhythm Nonspecific ST and T [...] B.Ch., B.A.O. ECG ORDERABLES Performing Organization Address City/[facility]/ZIP Co de Phone Number MUSE NA * (ABNORMAL) Glucose, POCT (09/19/2023 7:58 PM ENTRY LEVEL BUSINESS ANALYST) Pathologist [facility] Glucose, POCT, B 226(H) 70 - 140 mg/dL 09/19/2023 8:00 PM ENTRY LEVEL BUSINESS ANALYST PCLX Site ARTLINE 09/19/2023 8:00 PM ENTRY LEVEL BUSINESS ANALYST PCLX Blood 09/19/2023 7:58 PM ENTRY LEVEL BUSINESS ANALYST 09/19/2023 8:00 PM ENTRY LEVEL BUSINESS ANALYST Unknown Provider LAB POCT ORDERABLES- MANUAL POC [facility] [address] [place] [address], [facility] PCLX [facility] [address] [place] [address] * (ABNORMAL) Lactate, Whole Blood (09/19/2023 7:43 PM ENTRY LEVEL BUSINESS ANALYST) Lactate, B 6.6(H) 0.5 - 2.2 mmol/L 09/19/2023 7:50 PM ENTRY LEVEL BUSINESS ANALYST STMA Blood (Blood, Arterial) 09/19/2023 7:43 PM ENTRY LEVEL BUSINESS ANALYST 09/19/2023 7:49 PM ENTRY LEVEL BUSINESS ANALYST Radha Encarnacion APRNNGrant., M.S.N. L AB BLOOD NON ADD-ON [facility] [address] [place] [address], [facility] [address] [place] [address] * Patient Status (09/19/2023 7:43 PM ENTRY LEVEL BUSINESS ANALYST) O2 Flow 5.0L L/min 09/19/2023 7:49 PM ENTRY LEVEL BUSINESS ANALYST STMA Device NC 09/19/2023 7:49 PM ENTRY LEVEL BUSINESS ANALYST STMA Spont. breaths/min 21 09/19/2023 7:49 PM ENTRY LEVEL BUSINESS ANALYST STMA Blood 09/19/2023 7:43 PM ENTRY LEVEL BUSINESS ANALYST 09/19/2023 7:49 PM ENTRY LEVEL BUSINESS ANALYST Susu Fajardo LAB BLOOD NON ADD-ON Performing Organization Address City/[facility] Co de Phone Number [facility] [address] [place] [address], [facility] [address] [place] [address] * (ABNORMAL) Lactate (09/19/2023 7:43 PM ENTRY LEVEL BUSINESS ANALYST) Lactate, P 7.0(H) 0.5 - 2.2 mmol/L 09/19/2023 8:04 PM ENTRY LEVEL BUSINESS ANALYST STMA Blood (Blood, Venous) 09/19/2023 7:43 PM ENTRY LEVEL BUSINESS ANALYST 09/19/2023 7:49 PM ENTRY LEVEL BUSINESS ANALYST Susu R Conyer LAB BLOOD NON ADD-ON Performing Organization Address City/[facility]/ZIP Co de Phone Number [facility] [address] [place] [address], [facility] [address] [place] [address] * (ABNORMAL) Blood Gas with Coox, Arterial (09/19/2023 7:43 PM ENTRY LEVEL BUSINESS ANALYST) pO2 157(H) 83 - 108 mm Hg 09/19/2023 7:50 PM ENTRY LEVEL BUSINESS ANALYST STMA pCO2 42 35 - 48 mm Hg 09/19/2023 7:50 PM ENTRY LEVEL BUSINESS ANALYST STMA pH 7.25(L) 7.35 - 7.45 pH 09/19/2023 7:50 PM ENTRY LEVEL BUSINESS ANALYST STMA Base Excess -9(L) -2 - 3 mmol/L 09/19/2023 7:50 PM ENTRY LEVEL BUSINESS ANALYST STMA HCO3 19(L) 22 - 26 mmol/L 09/19/2023 7:50 PM ENTRY LEVEL BUSINESS ANALYST STMA Hemoglobin, Venous 10.1(L) 13.2 - 16.6 g/dL 09/19/2023 7:50 PM ENTRY LEVEL BUSINESS ANALYST STMA O2Hb 97.3 94.0 - 98.0 % 09/19/2023 7:50 PM ENTRY LEVEL BUSINESS ANALYST STMA COHb 2.0 <3.0 % 09/19/2023 7:50 PM ENTRY LEVEL BUSINESS ANALYST STMA MetHb 1.0 <1.5 % 09/19/2023 7:50 PM ENTRY LEVEL BUSINESS ANALYST STMA CtO2 14.1(L) 18.0 - 21.0 vol % 09/19/2023 7:50 PM ENTRY LEVEL BUSINESS ANALYST STMA Arterial Sample Site Art Line 09/19/2023 7:50 PM ENTRY LEVEL BUSINESS ANALYST STMA Comment:Mina's test not don e. Blood (Blood, Arterial) 09/19/2023 7:43 PM ENTRY LEVEL BUSINESS ANALYST 09/19/2023 7:49 PM ENTRY LEVEL BUSINESS ANALYST Susu Fajardo LAB BLOOD NON ADD-ON [facility] [address] [place] [address], [facility] [address] [place] [address] * (ABNORMAL) Glucose, POCT (09/19/2023 6:57 PM ENTRY LEVEL BUSINESS ANALYST) Glucose, POCT, B 224(H) 70 - 140 mg/dL 09/19/2023 7:00 PM ENTRY LEVEL BUSINESS ANALYST PCLX Site ARTLINE 09/19/2023 7:00 PM ENTRY LEVEL BUSINESS ANALYST PCLX Blood 09/19/2023 6:57 PM ENTRY LEVEL BUSINESS ANALYST 09/19/2023 7:00 PM ENTRY LEVEL BUSINESS ANALYST Unknown Provider LAB POCT ORDERABLES- MANUAL Performing Organization Address City/[facility]/ZIP Co de Phone Number POC [facility] [address] [place] [address], [facility] PCLX [facility] [address] [place] [address] * (ABNORMAL) Glucose, POCT (09/19/2023 6:23 PM ENTRY LEVEL BUSINESS ANALYST) Glucose, POCT, B 217(H) 70 - 140 mg/dL 09/19/2023 6:24 PM ENTRY LEVEL BUSINESS ANALYST PCLX Site ARTLINE 09/19/2023 6:24 PM ENTRY LEVEL BUSINESS ANALYST PCLX Blood 09/19/2023 6:23 PM ENTRY LEVEL BUSINESS ANALYST 09/19/2023 6:25 PM ENTRY LEVEL BUSINESS ANALYST Unknown Provider LAB POCT ORDERABLES- MANUAL Performing Organization Address City/[facility]/ZIP Co de Phone Number POC [facility] [address] [place] [address], [facility] PCL[facility] [address] [place] [address] * DX Chest Portable 1 View (09/19/2023 5:45 PM ENTRY LEVEL BUSINESS ANALYST) Anatomical Region Laterality Modality Chest, Thoracic RST LOS, Tho racic ARZ LOS, Thoracic FLA LOS N/A Digital Radiography 09/19/2023 7:33 PM ENTRY LEVEL BUSINESS ANALYST Impressions 09/19/2023 8:26 PM ENTRY LEVEL BUSINESS ANALYST Interval retraction of the endotracheal tube, with tip now in the mid thoracic trachea. Otherwise no significant changes since 2:23 PM. Right IJ Reinholds-Sepideh catheter with tip in the main pulmonary artery. Sternotomy wires and mediastinal surgical clips. Aortic valve replacement. Mediastinal drains. Mild bilateral interstitial thickening and perihilar opacities. No definite pleural effusion. Aortic calcifications. Narrative 09/19/2023 8:26 PM ENTRY LEVEL BUSINESS ANALYST EXAM: ??DX CHEST PORTABLE 1 VIEW Procedure [...] * Transfuse Platelets : (09/19/2023 5:19 PM ENTRY LEVEL BUSINESS ANALYST) Radha Iqbal M.D. BLOOD TRANSFUSION OR DERABLES * Patient Status (09/19/2023 5:19 PM ENTRY LEVEL BUSINESS ANALYST) Pathologist [facility] FIO2 0.50 0.21=AIR 09/19/2023 5:22 PM ENTRY LEVEL BUSINESS ANALYST STMA Device Vent 09/19/2023 5:22 PM ENTRY LEVEL BUSINESS ANALYST STMA Spont. breaths/min 21 09/19/2023 5:22 PM ENTRY LEVEL BUSINESS ANALYST STMA Blood 09/19/2023 5:19 PM ENTRY LEVEL BUSINESS ANALYST 09/19/2023 5:22 PM ENTRY LEVEL BUSINESS ANALYST Jenny Jay, Lucille, B.A.O. LAB BLOOD NON ADD-ON [facility] [address] [place] [address], [facility] [address] [place] [address] * Fibrinogen (09/19/2023 5:19 PM ENTRY LEVEL BUSINESS ANALYST) Pathologist [facility] Fibrinogen, P 269 200 - 393 mg/dL 09/19/2023 5:30 PM ENTRY LEVEL BUSINESS ANALYST STMA Blood (Blood, Venous) 09/19/2023 5:19 PM ENTRY LEVEL BUSINESS ANALYST 09/19/2023 5:22 PM ENTRY LEVEL BUSINESS ANALYST Raven BlackCh., B.A.O. LAB BLOOD ADD-ON [facility] [address] [place] [address], [facility] [address] [place] [address] * Prothrombin Time (PT) (09/19/2023 5:19 PM ENTRY LEVEL BUSINESS ANALYST) Prothrombin Time, P 12.4 9.4 - 12.5 sec 09/19/2023 5:30 PM ENTRY LEVEL BUSINESS ANALYST [facility] 1.1 0.9 - 1.1 09/19/2023 5:30 PM ENTRY LEVEL BUSINESS ANALYST [facility] Comment: ----ADDITIONAL INFORMATION---- Standard intensity warfarin therapeutic range: 2.0 to 3.0 ?? High intensity warfarin therapeutic range: 2.5 to 3.5 Blood (Blood, Venous) 09/19/2023 5:19 PM ENTRY LEVEL BUSINESS ANALYST 09/19/2023 5:22 PM ENTRY LEVEL BUSINESS ANALYST Raven BlackCh., B.A.O. LAB BLOOD ADD-ON Performing Organization Address City/[facility]/ZIP Co de Phone Number [facility] [address] [place] [address], [facility] [address] [place] [address] * APTT (Activated Partial Thromboplastin Time) (09/19/2023 5:19 PM ENTRY LEVEL BUSINESS ANALYST) Activated Partial Thrombopl Time, P 31 25 - 37 sec 09/19/2023 5:32 PM ENTRY LEVEL BUSINESS ANALYST [facility] Blood (Blood, Venous) 09/19/2023 5:19 PM ENTRY LEVEL BUSINESS ANALYST 09/19/2023 5:22 PM ENTRY LEVEL BUSINESS ANALYST Nicky Black.Ch., B.A.O. LAB BLOOD ADD-ON [facility] [address] [place] [address], [facility] [address] [place] [address] * (ABNORMAL) CBC without Differential (09/19/2023 5:19 PM ENTRY LEVEL BUSINESS ANALYST) [facility] Hemoglobin 9.5(L) 13.2 - 16.6 g/dL 09/19/2023 5:24 PM ENTRY LEVEL BUSINESS ANALYST STMA Hematocrit 27.5(L) 38.3 - 48.6 % 09/19/2023 5:24 PM ENTRY LEVEL BUSINESS ANALYST STMA Erythrocytes 3.14(L) 4.35 - 5.65 x10(12)/L 09/19/2023 5:24 PM ENTRY LEVEL BUSINESS ANALYST [facility] MCV 87.6 78.2 - 97.9 fL 09/19/2023 5:24 PM ENTRY LEVEL BUSINESS ANALYST STMA RBC Distrib Width 13.3 11.8 - 14.5 % 09/19/2023 5:24 PM ENTRY LEVEL BUSINESS ANALYST STMA Platelet Count 163 135 - 317 x10(9)/L 09/19/2023 5:24 PM ENTRY LEVEL BUSINESS ANALYST STMA Leukocytes 13.3(H) 3.4 - 9.6 x10(9)/L 09/19/2023 5:24 PM ENTRY LEVEL BUSINESS ANALYST STMA Blood (Blood, Venous) 09/19/2023 5:19 PM ENTRY LEVEL BUSINESS ANALYST 09/19/2023 5:22 PM ENTRY LEVEL BUSINESS ANALYST Jenny Jay, B.Ch., B.A.O. LAB BLOOD ADD-ON [facility] [address] [place], [place] [address] [address] [place] [address] * (ABNORMAL) Lactate, Whole Blood (09/19/2023 5:19 PM ENTRY LEVEL BUSINESS ANALYST) [facility] Lactate, B 2.9(H) 0.5 - 2.2 mmol/L 09/19/2023 5:27 PM ENTRY LEVEL BUSINESS ANALYST STMA Blood (Blood, Arterial) 09/19/2023 5:19 PM ENTRY LEVEL BUSINESS ANALYST 09/19/2023 5:22 PM ENTRY LEVEL BUSINESS ANALYST Jenny Jay, RavenCh., B.A.O. LAB BLOOD NON ADD-ON [facility] [address] [place] [address], [place] STMA [facility] [address] [place] [address] * (ABNORMAL) Blood Gas with Coox, Arterial (09/19/2023 5:19 PM ENTRY LEVEL BUSINESS ANALYST) pO2 192(H) 83 - 108 mm Hg 09/19/2023 5:27 PM ENTRY LEVEL BUSINESS ANALYST STMA pCO2 36 35 - 48 mm Hg 09/19/2023 5:27 PM ENTRY LEVEL BUSINESS ANALYST STMA pH 7.37 7.35 - 7.45 pH 09/19/2023 5:27 PM ENTRY LEVEL BUSINESS ANALYST STMA Base Excess -4(L) -2 - 3 mmol/L 09/19/2023 5:27 PM ENTRY LEVEL BUSINESS ANALYST ST[facility] HCO3 20(L) 22 - 26 mmol/L 09/19/2023 5:27 PM ENTRY LEVEL BUSINESS ANALYST STMA Hemoglobin, Venous 9.9(L) 13.2 - 16.6 g/dL 09/19/2023 5:27 PM ENTRY LEVEL BUSINESS ANALYST STMA O2Hb 95.6 94.0 - 98.0 % 09/19/2023 5:27 PM ENTRY LEVEL BUSINESS ANALYST STMA COHb 1.1 <3.0 % 09/19/2023 5:27 PM ENTRY LEVEL BUSINESS ANALYST STMA MetHb 2.2(H) <1.5 % 09/19/2023 5:27 PM ENTRY LEVEL BUSINESS ANALYST STMA CtO2 13.7(L) 18.0 - 21.0 vol % 09/19/2023 5:27 PM ENTRY LEVEL BUSINESS ANALYST STMA Arterial Sample Site Art Line 09/19/2023 5:27 PM ENTRY LEVEL BUSINESS ANALYST STMA Comment:Mina's test not don e. Blood (Blood, Arterial) 09/19/2023 5:19 PM ENTRY LEVEL BUSINESS ANALYST 09/19/2023 5:22 PM ENTRY LEVEL BUSINESS ANALYST Jenny Jay, Nicky.Ch., B.A.O. LAB BLOOD NON ADD-ON [facility] [address] [place] [address], [facility] STMA [facility] [address] [place] [address] * (ABNORMAL) Basic Metabolic Panel (09/19/2023 5:19 PM ENTRY LEVEL BUSINESS ANALYST) Pathologist [facility] Potassium, P 4.6 3.6 - 5.2 mmol/L 09/19/2023 5:38 PM ENTRY LEVEL BUSINESS ANALYST STMA Sodium, P 140 135 - 145 mmol/L 09/19/2023 5:38 PM ENTRY LEVEL BUSINESS ANALYST STMA Chloride, P 107 98 - 107 mmol/L 09/19/2023 5:38 PM ENTRY LEVEL BUSINESS ANALYST STMA Bicarbonate, P 20(L) 22 - 29 mmol/L 09/19/2023 5:38 PM ENTRY LEVEL BUSINESS ANALYST STMA Anion Gap, P 13 7 - 15 09/19/2023 5:38 PM ENTRY LEVEL BUSINESS ANALYST STMA BUN (Blood Urea Nitrogen), P 19 8 - 24 mg/dL 09/19/2023 5:38 PM ENTRY LEVEL BUSINESS ANALYST STMA Creatinine 1.39(H) 0.74 - 1.35 mg/dL 09/19/2023 5:38 PM ENTRY LEVEL BUSINESS ANALYST STMA Estimated GFR (eGFR) 54(L) >=60 mL/min/BSA 09/19/2023 5:38 PM ENTRY LEVEL BUSINESS ANALYST STMA Comment: Estimated GFR calculated using the 2020 CKD_EPI creatinine equation. Calcium, Total, P 10.7(H) 8.8 - 10.2 mg/dL 09/19/2023 5:38 PM ENTRY LEVEL BUSINESS ANALYST STMA Glucose, P 201(H) 70 - 140 mg/dL 09/19/2023 5:38 PM ENTRY LEVEL BUSINESS ANALYST STMA Blood (Blood, Venous) 09/19/2023 5:19 PM ENTRY LEVEL BUSINESS ANALYST 09/19/2023 5:22 PM ENTRY LEVEL BUSINESS ANALYST Jenny Jay, B.Ch., B.A.O. LAB BLOOD ADD-ON [facility] [address] [place] [address], [facility] STMA [facility] [address] [place] [address] * (ABNORMAL) Cystatin C with Estimated GFR (09/19/2023 5:19 PM ENTRY LEVEL BUSINESS ANALYST) eGFR by Cystatin C 59(L) >60 mL/min/BSA 09/19/2023 8:00 PM ENTRY LEVEL BUSINESS ANALYST DTL Comment: Estimated GFR calculated using the [...] 0.67 - 1.21 mg/L 09/19/2023 8:00 PM ENTRY LEVEL BUSINESS ANALYST DTL Blood (Blood, Arterial Line) 09/19/2023 5:19 PM ENTRY LEVEL BUSINESS ANALYST 09/19/2023 5:53 PM ENTRY LEVEL BUSINESS ANALYST Zoraida Salmeron M.D., Ph.D. LAB BLOOD AD D-ON Performing Organization Address City/[facility]/ZIP Co de Phone Number [facility] [address] DTL [facility] [address] [place] [address] * (ABNORMAL) Platelet Count (09/19/2023 4:20 PM ENTRY LEVEL BUSINESS ANALYST) Pathologist [facility] Platelet Count 94(L) 135 - 317 x10(9)/L 09/19/2023 4:27 PM ENTRY LEVEL BUSINESS ANALYST STMA Blood (Blood, Arterial Line) 09/19/2023 4:20 PM ENTRY LEVEL BUSINESS ANALYST 09/19/2023 4:20 PM ENTRY LEVEL BUSINESS ANALYST Rowena Antonio M.D. LAB BLOOD ADD-O N Performing Organization Address City/[facility]/ZIP Co de Phone Number [facility] [address] STMA [facility] [address] [place] [address] * Prothrombin Time (PT) (09/19/2023 4:20 PM ENTRY LEVEL BUSINESS ANALYST) Pathologist [facility] Prothrombin Time, P 12.3 9.4 - 12.5 sec 09/19/2023 4:32 PM ENTRY LEVEL BUSINESS ANALYST [facility] 1.1 0.9 - 1.1 09/19/2023 4:32 PM ENTRY LEVEL BUSINESS ANALYST [facility] Comment: ----ADDITIONAL INFORMATION---- Standard intensity warfarin therapeutic range: 2.0 to 3.0 ?? High intensity warfarin therapeutic range: 2.5 to 3.5 Blood (Blood, Arterial Line) 09/19/2023 4:20 PM ENTRY LEVEL BUSINESS ANALYST 09/19/2023 4:20 PM ENTRY LEVEL BUSINESS ANALYST Rowena Antonio M.D. LAB BLOOD ADD-O N Performing Organization Address City/[facility]/ZIP Co de Phone Number [facility] [address] [place] [address] * Fibrinogen (09/19/2023 4:20 PM ENTRY LEVEL BUSINESS ANALYST) [facility] Fibrinogen, P 246 200 - 393 mg/dL 09/19/2023 4:32 PM ENTRY LEVEL BUSINESS ANALYST [facility] Blood (Blood, Arterial Line) 09/19/2023 4:20 PM ENTRY LEVEL BUSINESS ANALYST 09/19/2023 4:20 PM ENTRY LEVEL BUSINESS ANALYST Rowena Antonio M.D. LAB BLOOD ADD-O N Performing Organization Address City/[facility]/ZIP Co de Phone Number [facility] [address] [place] [address], [facility] [address] [place] [address] * APTT (Activated Partial Thromboplastin Time) (09/19/2023 4:20 PM ENTRY LEVEL BUSINESS ANALYST) [facility] Activated Partial Thrombopl Time, P 32 25 - 37 sec 09/19/2023 4:34 PM ENTRY LEVEL BUSINESS ANALYST [facility] Blood (Blood, Arterial Line) 09/19/2023 4:20 PM ENTRY LEVEL BUSINESS ANALYST 09/19/2023 4:20 PM ENTRY LEVEL BUSINESS ANALYST Rowena Antonio M.D. LAB BLOOD ADD-O N Performing Organization Address [facility] Co de Phone Number [facility] [address] [place] [address], [facility] [address] [place] [address] * (ABNORMAL) Lactate, B - Intra-op (09/19/2023 4:20 PM ENTRY LEVEL BUSINESS ANALYST) Lactate, B 2.9(H) 0.5 - 2.2 mmol/L 09/19/2023 4:23 PM ENTRY LEVEL BUSINESS ANALYST [facility] Blood (Blood, Venous) 09/19/2023 4:20 PM ENTRY LEVEL BUSINESS ANALYST 09/19/2023 4:20 PM ENTRY LEVEL BUSINESS ANALYST Rowena Antonio M.D. LAB BLOOD NON A DD-ON Performing Organization Address [facility] Co de Phone Number [facility] [address] [place] [address], [facility] [address] [place] [address] * (ABNORMAL) Glucose, Whole Blood (09/19/2023 4:20 PM ENTRY LEVEL BUSINESS ANALYST) Glucose 152(H) 70 - 140 mg/dL 09/19/2023 4:23 PM ENTRY LEVEL BUSINESS ANALYST [facility] Blood (Blood, Arterial Line) 09/19/2023 4:20 PM ENTRY LEVEL BUSINESS ANALYST 09/19/2023 4:20 PM ENTRY LEVEL BUSINESS ANALYST Rowena Antonio M.D. LAB BLOOD ADD-O N Performing Organization Address [facility] Co de Phone Number [facility] [address] [place] [address], [facility] [address] [place] [address] * Potassium, Blood (09/19/2023 4:20 PM ENTRY LEVEL BUSINESS ANALYST) Potassium, B 4.7 3.6 - 5.2 mmol/L 09/19/2023 4:23 PM ENTRY LEVEL BUSINESS ANALYST [facility] Blood (Blood, Arterial Line) 09/19/2023 4:20 PM ENTRY LEVEL BUSINESS ANALYST 09/19/2023 4:20 PM ENTRY LEVEL BUSINESS ANALYST Rowena Antonio M.D. LAB BLOOD NON A DD-ON Performing Organization Address City/[facility]/ZIP Co de Phone Number [facility] [address] [place], [place] [address] [place] [address] 200 [place] [address] * Sodium, B (09/19/2023 4:20 PM ENTRY LEVEL BUSINESS ANALYST) Sodium, B 139 135 - 145 mmol/L 09/19/2023 4:23 PM ENTRY LEVEL BUSINESS ANALYST [facility] Blood (Blood, Arterial Line) 09/19/2023 4:20 PM ENTRY LEVEL BUSINESS ANALYST 09/19/2023 4:20 PM ENTRY LEVEL BUSINESS ANALYST Rowena Antonio M.D. LAB BLOOD NON A DD-ON Performing Organization Address City/[facility] Co de Phone Number [facility] [address] [place] [address], [facility] [address] [place] [address] * Calcium, Ionized (09/19/2023 4:20 PM ENTRY LEVEL BUSINESS ANALYST) Calcium, Ionized, B 5.02 4.65 - 5.30 mg/dL 09/19/2023 4:23 PM ENTRY LEVEL BUSINESS ANALYST [facility] Blood (Blood, Arterial Line) 09/19/2023 4:20 PM ENTRY LEVEL BUSINESS ANALYST 09/19/2023 4:20 PM ENTRY LEVEL BUSINESS ANALYST Rowena Antonio M.D. LAB BLOOD NON A DD-ON [facility] [address] [place] [address], [facility] [address] [place] [address] * (ABNORMAL) Blood Gas with Coox, Arterial (09/19/2023 4:20 PM ENTRY LEVEL BUSINESS ANALYST) pO2 139(H) 83 - 108 mm Hg 09/19/2023 4:23 PM ENTRY LEVEL BUSINESS ANALYST [facility] pCO2 35 35 - 48 mm Hg 09/19/2023 4:23 PM ENTRY LEVEL BUSINESS ANALYST [facility] pH 7.43 7.35 - 7.45 pH 09/19/2023 4:23 PM ENTRY LEVEL BUSINESS ANALYST [facility] Base Excess -1 -2 - 3 mmol/L 09/19/2023 4:23 PM ENTRY LEVEL BUSINESS ANALYST [facility] HCO3 23 22 - 26 mmol/L 09/19/2023 4:23 PM ENTRY LEVEL BUSINESS ANALYST [facility] Hemoglobin, Venous 8.9(L) 13.2 - 16.6 g/dL 09/19/2023 4:23 PM ENTRY LEVEL BUSINESS ANALYST [facility] O2Hb 97.3 94.0 - 98.0 % 09/19/2023 4:23 PM ENTRY LEVEL BUSINESS ANALYST [facility] COHb 1.4 <3.0 % 09/19/2023 4:23 PM ENTRY LEVEL BUSINESS ANALYST [facility] MetHb <1.0 <1.5 % 09/19/2023 4:23 PM ENTRY LEVEL BUSINESS ANALYST [facility] CtO2 12.4(L) 18.0 - 21.0 vol % 09/19/2023 4:23 PM ENTRY LEVEL BUSINESS ANALYST [facility] Blood (Blood, Arterial Line) 09/19/2023 4:20 PM ENTRY LEVEL BUSINESS ANALYST 09/19/2023 4:20 PM ENTRY LEVEL BUSINESS ANALYST Rowena Antonio M.D. LAB BLOOD NON A DD-ON Performing Organization Address City/State/[facility] Co de Phone Number [facility] [address] [place] [address], [facility] [address] [place] [address] * Transfuse Pooled Cryoprecipitate: (09/19/2023 3:54 PM ENTRY LEVEL BUSINESS ANALYST) Rowena Antonio M.D. BLOOD TRANSFUSI ON ORDERABLES * Transfuse Pooled Cryoprecipitate: (09/19/2023 3:54 PM ENTRY LEVEL BUSINESS ANALYST) Rowena Antonio M.D. BLOOD TRANSFUSI ON ORDERABLES * Transfuse Red Blood Cells : (09/19/2023 3:50 PM ENTRY LEVEL BUSINESS ANALYST) Radha Iqbal M.D. BLOOD TRANSFUSION OR DERABLES * Thromboelastograph, Kaolin, Blood (09/19/2023 3:37 PM ENTRY LEVEL BUSINESS ANALYST) R, Kaolin, TEG 4.8 4.0 - 9.0 min 09/19/2023 5:46 PM ENTRY LEVEL BUSINESS ANALYST [facility] K, Kaolin, TEG 1.3 1.0 - 1.8 min 09/19/2023 5:46 PM ENTRY LEVEL BUSINESS ANALYST [facility] Angle, Kaolin, TEG 70.0 64.0 - 78.1 degrees 09/19/2023 5:46 PM ENTRY LEVEL BUSINESS ANALYST [facility] MA, Kaolin, TEG 65.4 57.1 - 72.6 mm 09/19/2023 5:46 PM ENTRY LEVEL BUSINESS ANALYST [facility] Ly30, Kaolin, TEG 0.0 0.0 - 4.8 % 09/19/2023 5:46 PM ENTRY LEVEL BUSINESS ANALYST [facility] Blood (Blood, Arterial Line) 09/19/2023 3:37 PM ENTRY LEVEL BUSINESS ANALYST 09/19/2023 3:37 PM ENTRY LEVEL BUSINESS ANALYST Rowena Antonio M.D. LAB BLOOD NON A DD-ON [facility] [address] [place] [address], [facility] [address] [place] [address] * Thromboelastograph, Kaolin + Heparinase (09/19/2023 3:37 PM ENTRY LEVEL BUSINESS ANALYST) R-Heparinase, TEG 4.7 1.9 - 6.5 min 09/19/2023 5:46 PM ENTRY LEVEL BUSINESS ANALYST [facility] K-Heparinase, TEG 1.3 1.0 - 1.9 min 09/19/2023 5:46 PM ENTRY LEVEL BUSINESS ANALYST [facility] Angle-Heparina se, TEG 72.0 63.5 - 75.1 degrees 09/19/2023 5:46 PM ENTRY LEVEL BUSINESS ANALYST [facility] MA-Heparinase, TEG 65.9 57.7 - 69.3 mm 09/19/2023 5:46 PM ENTRY LEVEL BUSINESS ANALYST [facility] Gt45-Lfyfjivwf e, TEG 0.0 0.0 - 4.7 % 09/19/2023 5:46 PM ENTRY LEVEL BUSINESS ANALYST [facility] An61-Vemqeifzm e, TEG 1.1 0.0 - 15.0 % 09/19/2023 5:46 PM ENTRY LEVEL BUSINESS ANALYST [facility] Blood (Blood, Arterial Line) 09/19/2023 3:37 PM ENTRY LEVEL BUSINESS ANALYST 09/19/2023 3:37 PM ENTRY LEVEL BUSINESS ANALYST Rowena Antonio M.D. LAB BLOOD NON A DD-ON Performing Organization Address [facility] Co de Phone Number [facility] [address] [place] [address] * (ABNORMAL) Platelet Count (09/19/2023 3:37 PM ENTRY LEVEL BUSINESS ANALYST) Platelet Count 108(L) 135 - 317 x10(9)/L 09/19/2023 3:45 PM ENTRY LEVEL BUSINESS ANALYST [facility] Blood (Blood, Arterial Line) 09/19/2023 3:37 PM ENTRY LEVEL BUSINESS ANALYST 09/19/2023 3:37 PM ENTRY LEVEL BUSINESS ANALYST Rowena Antonio M.D. LAB BLOOD ADD-O N Performing Organization Address [facility] Co de Phone Number [facility] [address] [place] [address] * (ABNORMAL) Prothrombin Time (PT) (09/19/2023 3:37 PM ENTRY LEVEL BUSINESS ANALYST) Prothrombin Time, P 16.1(H) 9.4 - 12.5 sec 09/19/2023 3:51 PM ENTRY LEVEL BUSINESS ANALYST [facility] INR 1.5 0.9 - 1.1 09/19/2023 3:51 PM ENTRY LEVEL BUSINESS ANALYST [facility] Comment: ----ADDITIONAL INFORMATION---- Standard intensity warfarin therapeutic range: 2.0 to 3.0 ?? High intensity warfarin therapeutic range: 2.5 to 3.5 Blood (Blood, Arterial Line) 09/19/2023 3:37 PM ENTRY LEVEL BUSINESS ANALYST 09/19/2023 3:37 PM ENTRY LEVEL BUSINESS ANALYST Rowena Antonio M.D. LAB BLOOD ADD-O N Performing Organization Address City/[facility]/ZIP Co de Phone Number [facility] [address] [place] [address] * (ABNORMAL) Fibrinogen (09/19/2023 3:37 PM ENTRY LEVEL BUSINESS ANALYST) [facility] Fibrinogen, P 169(L) 200 - 393 mg/dL 09/19/2023 3:51 PM ENTRY LEVEL BUSINESS ANALYST [facility] Blood (Blood, Arterial Line) 09/19/2023 3:37 PM ENTRY LEVEL BUSINESS ANALYST 09/19/2023 3:37 PM ENTRY LEVEL BUSINESS ANALYST Rowena Antonio M.D. LAB BLOOD ADD-O N Performing Organization Address [facility] Co de Phone Number [facility] [address] [place] [address] * APTT (Activated Partial Thromboplastin Time) (09/19/2023 3:37 PM ENTRY LEVEL BUSINESS ANALYST) [facility] Activated Partial Thrombopl Time, P 34 25 - 37 sec 09/19/2023 3:53 PM ENTRY LEVEL BUSINESS ANALYST [facility] Blood (Blood, Arterial Line) 09/19/2023 3:37 PM ENTRY LEVEL BUSINESS ANALYST 09/19/2023 3:37 PM ENTRY LEVEL BUSINESS ANALYST Rowena Antonio M.D. LAB BLOOD ADD-O N Performing Organization Address City/[facility] Co de Phone Number [facility] [address] [place] [address] * (ABNORMAL) Lactate, B - Intra-op (09/19/2023 3:37 PM ENTRY LEVEL BUSINESS ANALYST) [facility] Lactate, B 3.1(H) 0.5 - 2.2 mmol/L 09/19/2023 3:41 PM ENTRY LEVEL BUSINESS ANALYST [facility] Blood (Blood, Venous) 09/19/2023 3:37 PM ENTRY LEVEL BUSINESS ANALYST 09/19/2023 3:37 PM ENTRY LEVEL BUSINESS ANALYST Rowena Antonio M.D. LAB BLOOD NON A DD-ON [facility] [address] [place] [address], [facility] [address] [place] [address] * (ABNORMAL) Glucose, Whole Blood (09/19/2023 3:37 PM ENTRY LEVEL BUSINESS ANALYST) Glucose 148(H) 70 - 140 mg/dL 09/19/2023 3:41 PM ENTRY LEVEL BUSINESS ANALYST [facility] Blood (Blood, Arterial Line) 09/19/2023 3:37 PM ENTRY LEVEL BUSINESS ANALYST 09/19/2023 3:37 PM ENTRY LEVEL BUSINESS ANALYST Rowena Antonio M.D. LAB BLOOD ADD-O N Performing Organization Address City/[facility]/ZIP Co de Phone Number [facility] [address] [place] [address], [facility] [address] [place] [address] * Potassium, Blood (09/19/2023 3:37 PM ENTRY LEVEL BUSINESS ANALYST) Potassium, B 4.6 3.6 - 5.2 mmol/L 09/19/2023 3:41 PM ENTRY LEVEL BUSINESS ANALYST [facility] Blood (Blood, Arterial Line) 09/19/2023 3:37 PM ENTRY LEVEL BUSINESS ANALYST 09/19/2023 3:37 PM ENTRY LEVEL BUSINESS ANALYST Rowena Antonio M.D. LAB BLOOD NON A DD-ON Performing Organization Address City/[facility]/ZIP Co de Phone Number [facility] [address] [place] [address], [facility] [address] [place] [address] * Sodium, B (09/19/2023 3:37 PM ENTRY LEVEL BUSINESS ANALYST) Sodium, B 140 135 - 145 mmol/L 09/19/2023 3:41 PM ENTRY LEVEL BUSINESS ANALYST [facility] Blood (Blood, Arterial Line) 09/19/2023 3:37 PM ENTRY LEVEL BUSINESS ANALYST 09/19/2023 3:37 PM ENTRY LEVEL BUSINESS ANALYST Rowena Antonio M.D. LAB BLOOD NON A DD-ON Performing Organization Address City/[facility] Co de Phone Number [facility] [address] [place] [address], [facility] [address] [place] [address] * Calcium, Ionized (09/19/2023 3:37 PM ENTRY LEVEL BUSINESS ANALYST) Calcium, Ionized, B 4.83 4.65 - 5.30 mg/dL 09/19/2023 3:41 PM ENTRY LEVEL BUSINESS ANALYST [facility] Blood (Blood, Arterial Line) 09/19/2023 3:37 PM ENTRY LEVEL BUSINESS ANALYST 09/19/2023 3:37 PM ENTRY LEVEL BUSINESS ANALYST Rowena Antonio M.D. LAB BLOOD NON A DD-ON Performing Organization Address City/[facility] Co de Phone Number [facility] [address] [place] [address], [facility] [address] [place] [address] * (ABNORMAL) Blood Gas with Coox, Arterial (09/19/2023 3:37 PM ENTRY LEVEL BUSINESS ANALYST) pO2 101 83 - 108 mm Hg 09/19/2023 3:41 PM ENTRY LEVEL BUSINESS ANALYST [facility] pCO2 40 35 - 48 mm Hg 09/19/2023 3:41 PM ENTRY LEVEL BUSINESS ANALYST [facility] pH 7.37 7.35 - 7.45 pH 09/19/2023 3:41 PM ENTRY LEVEL BUSINESS ANALYST [facility] Base Excess -3(L) -2 - 3 mmol/L 09/19/2023 3:41 PM ENTRY LEVEL BUSINESS ANALYST [facility] HCO3 23 22 - 26 mmol/L 09/19/2023 3:41 PM ENTRY LEVEL BUSINESS ANALYST [facility] Hemoglobin, Venous 8.1(L) 13.2 - 16.6 g/dL 09/19/2023 3:41 PM ENTRY LEVEL BUSINESS ANALYST [facility] O2Hb 96.3 94.0 - 98.0 % 09/19/2023 3:41 PM ENTRY LEVEL BUSINESS ANALYST [facility] COHb 1.4 <3.0 % 09/19/2023 3:41 PM ENTRY LEVEL BUSINESS ANALYST [facility] MetHb 1.0 <1.5 % 09/19/2023 3:41 PM ENTRY LEVEL BUSINESS ANALYST [facility] CtO2 11.1(L) 18.0 - 21.0 vol % 09/19/2023 3:41 PM ENTRY LEVEL BUSINESS ANALYST [facility] Blood (Blood, Arterial Line) 09/19/2023 3:37 PM ENTRY LEVEL BUSINESS ANALYST 09/19/2023 3:37 PM ENTRY LEVEL BUSINESS ANALYST Rowena Antonio M.D. LAB BLOOD NON A DD-ON Performing Organization Address City/[facility]/ZIP Co de Phone Number [facility] [address] [place] [address], [facility] [address] [place] [address] * Transfuse Red Blood Cells : (09/19/2023 3:23 PM ENTRY LEVEL BUSINESS ANALYST) Radha Iqbal M.D. BLOOD TRANSFUSION OR DERABLES * (ABNORMAL) Platelet Count (09/19/2023 2:46 PM ENTRY LEVEL BUSINESS ANALYST) [facility] Platelet Count 115(L) 135 - 317 x10(9)/L 09/19/2023 2:56 PM ENTRY LEVEL BUSINESS ANALYST [facility] Blood (Blood, Arterial Line) 09/19/2023 2:46 PM ENTRY LEVEL BUSINESS ANALYST 09/19/2023 2:46 PM ENTRY LEVEL BUSINESS ANALYST Rowena Antonio M.D. LAB BLOOD ADD-O N [facility] [address] [place] [address], [facility] [address] [place] [address] * (ABNORMAL) Prothrombin Time (PT) (09/19/2023 2:46 PM ENTRY LEVEL BUSINESS ANALYST) [facility] Prothrombin Time, P 15.4(H) 9.4 - 12.5 sec 09/19/2023 2:58 PM ENTRY LEVEL BUSINESS ANALYST [facility] INR 1.4 0.9 - 1.1 09/19/2023 2:58 PM ENTRY LEVEL BUSINESS ANALYST [facility] Comment: ----ADDITIONAL INFORMATION---- Standard intensity warfarin therapeutic range: 2.0 to 3.0 ?? High intensity warfarin therapeutic range: 2.5 to 3.5 Blood (Blood, Arterial Line) 09/19/2023 2:46 PM ENTRY LEVEL BUSINESS ANALYST 09/19/2023 2:46 PM ENTRY LEVEL BUSINESS ANALYST Rowena Antonio M.D. LAB BLOOD ADD-O N Performing Organization Address City/[facility]/ZIP Co de Phone Number [facility] [address] [place], [place] [id number] [place] [address] 200 [place] [address] * (ABNORMAL) Fibrinogen (09/19/2023 2:46 PM ENTRY LEVEL BUSINESS ANALYST) [facility] Fibrinogen, P 189(L) 200 - 393 mg/dL 09/19/2023 2:58 PM ENTRY LEVEL BUSINESS ANALYST [facility] Blood (Blood, Arterial Line) 09/19/2023 2:46 PM ENTRY LEVEL BUSINESS ANALYST 09/19/2023 2:46 PM ENTRY LEVEL BUSINESS ANALYST Rowena Antonio M.D. LAB BLOOD ADD-O N Performing Organization Address [facility] Co de Phone Number [facility] [address] [place] [address], [facility] [address] [place] [address] * APTT (Activated Partial Thromboplastin Time) (09/19/2023 2:46 PM ENTRY LEVEL BUSINESS ANALYST) [facility] Activated Partial Thrombopl Time, P 32 25 - 37 sec 09/19/2023 3:00 PM ENTRY LEVEL BUSINESS ANALYST [facility] Blood (Blood, Arterial Line) 09/19/2023 2:46 PM ENTRY LEVEL BUSINESS ANALYST 09/19/2023 2:46 PM ENTRY LEVEL BUSINESS ANALYST Rowena Antonio M.D. LAB BLOOD ADD-O N Performing Organization Address City/[facility]/ZIP Co de Phone Number [facility] [address] [place] [address], [facility] [address] [place] [address] * Glucose, Whole Blood (09/19/2023 2:46 PM ENTRY LEVEL BUSINESS ANALYST) Glucose 139 70 - 140 mg/dL 09/19/2023 2:50 PM ENTRY LEVEL BUSINESS ANALYST [facility] Blood (Blood, Arterial Line) 09/19/2023 2:46 PM ENTRY LEVEL BUSINESS ANALYST 09/19/2023 2:46 PM ENTRY LEVEL BUSINESS ANALYST Rowena Antonio M.D. LAB BLOOD ADD-O N Performing Organization Address [facility] Co de Phone Number [facility] [address] [place] [address], [facility] [address] [place] [address] * Potassium, Blood (09/19/2023 2:46 PM ENTRY LEVEL BUSINESS ANALYST) Potassium, B 3.8 3.6 - 5.2 mmol/L 09/19/2023 2:50 PM ENTRY LEVEL BUSINESS ANALYST [facility] Blood (Blood, Arterial Line) 09/19/2023 2:46 PM ENTRY LEVEL BUSINESS ANALYST 09/19/2023 2:46 PM ENTRY LEVEL BUSINESS ANALYST Rowena Antonio M.D. LAB BLOOD NON A DD-ON Performing Organization Address City/[facility]/ZIP Co de Phone Number [facility] [address] [place] [address], [facility] [address] [place] [address] * Sodium, B (09/19/2023 2:46 PM ENTRY LEVEL BUSINESS ANALYST) Sodium, B 141 135 - 145 mmol/L 09/19/2023 2:50 PM ENTRY LEVEL BUSINESS ANALYST [facility] Blood (Blood, Arterial Line) 09/19/2023 2:46 PM ENTRY LEVEL BUSINESS ANALYST 09/19/2023 2:46 PM ENTRY LEVEL BUSINESS ANALYST Rowena Antonio M.D. LAB BLOOD NON A DD-ON Performing Organization Address [facility] Co de Phone Number [facility] [address] [place] [address] * (ABNORMAL) Calcium, Ionized (09/19/2023 2:46 PM ENTRY LEVEL BUSINESS ANALYST) Calcium, Ionized, B 5.36(H) 4.65 - 5.30 mg/dL 09/19/2023 2:50 PM ENTRY LEVEL BUSINESS ANALYST [facility] Blood (Blood, Arterial Line) 09/19/2023 2:46 PM ENTRY LEVEL BUSINESS ANALYST 09/19/2023 2:46 PM ENTRY LEVEL BUSINESS ANALYST Rowena Antonio M.D. LAB BLOOD NON A DD-ON Performing Organization Address [facility] Co de Phone Number [facility] [address] [place] [address] * (ABNORMAL) Blood Gas with Coox, Arterial (09/19/2023 2:46 PM ENTRY LEVEL BUSINESS ANALYST) pO2 317(H) 83 - 108 mm Hg 09/19/2023 2:50 PM ENTRY LEVEL BUSINESS ANALYST [facility] pCO2 36 35 - 48 mm Hg 09/19/2023 2:50 PM ENTRY LEVEL BUSINESS ANALYST [facility] pH 7.42 7.35 - 7.45 pH 09/19/2023 2:50 PM ENTRY LEVEL BUSINESS ANALYST [facility] Base Excess -1 -2 - 3 mmol/L 09/19/2023 2:50 PM ENTRY LEVEL BUSINESS ANALYST [facility] HCO3 23 22 - 26 mmol/L 09/19/2023 2:50 PM ENTRY LEVEL BUSINESS ANALYST [facility] Hemoglobin, Venous 8.1(L) 13.2 - 16.6 g/dL 09/19/2023 2:50 PM ENTRY LEVEL BUSINESS ANALYST [facility] O2Hb 98.0 94.0 - 98.0 % 09/19/2023 2:50 PM ENTRY LEVEL BUSINESS ANALYST [facility] COHb 1.3 <3.0 % 09/19/2023 2:50 PM ENTRY LEVEL BUSINESS ANALYST [facility] MetHb 1.1 <1.5 % 09/19/2023 2:50 PM ENTRY LEVEL BUSINESS ANALYST [facility] CtO2 11.9(L) 18.0 - 21.0 vol % 09/19/2023 2:50 PM ENTRY LEVEL BUSINESS ANALYST [facility] Blood (Blood, Arterial Line) 09/19/2023 2:46 PM ENTRY LEVEL BUSINESS ANALYST 09/19/2023 2:46 PM ENTRY LEVEL BUSINESS ANALYST Rowena Antonio M.D. LAB BLOOD NON A DD-ON [facility] [address] [place] [address], [facility] [address] [place] [address] * DX Chest Retained Surgical Item 1 View (09/19/2023 2:30 PM ENTRY LEVEL BUSINESS ANALYST) Anatomical Region Laterality Modality Chest, Thoracic RST LOS, Tho racic ARZ LOS, Thoracic FLA LOS N/A Digital Radiography 09/19/2023 2:32 PM ENTRY LEVEL BUSINESS ANALYST Impressions 09/19/2023 2:39 PM ENTRY LEVEL BUSINESS ANALYST The aforementioned object in question is not identified. New sternotomy, mediastinal clips, AVR, mediastinal drains, right IJ Reinholds-Sepideh catheter tip at the MPA are identified. Likely small amount of mediastinal air. ET tube tip is low lying, approximately 1 cm above the blaine, correlation with chin position is recommended. Loop recorder. Shallower inspiration with accentuation of the cardiac silhouette and vascular crowding. Discussed with Dr. Stanford at 2:36 PM on 09/19/2023. Narrative 09/19/2023 2:39 PM ENTRY LEVEL BUSINESS ANALYST EXAM: DX CHEST RETAINED SURGICAL ITEM 1 [...] sternotomy,mediastinal clips, AVR, mediastinal drains, right IJ Reinholds-Sepideh cathetertip at the MPA are identified. Likely [...] * Transfuse Platelets : (09/19/2023 2:17 PM ENTRY LEVEL BUSINESS ANALYST) Radha Iqbal M.D. BLOOD TRANSFUSION OR DERABLES * Transfuse Red Blood Cells : (09/19/2023 2:00 PM ENTRY LEVEL BUSINESS ANALYST) Radha Iqbal M.D. BLOOD TRANSFUSION OR DERABLES * (ABNORMAL) Platelet Count (09/19/2023 1:40 PM ENTRY LEVEL BUSINESS ANALYST) Pathologist [facility] Platelet Count 95(L) 135 - 317 x10(9)/L 09/19/2023 1:44 PM ENTRY LEVEL BUSINESS ANALYST [facility] Blood (Blood, Arterial Line) 09/19/2023 1:40 PM ENTRY LEVEL BUSINESS ANALYST 09/19/2023 1:40 PM ENTRY LEVEL BUSINESS ANALYST Radha Iqbal M.D. LAB BLOOD ADD-ON [facility] [address] [place] [address], [facility] [address] [place] [address] * (ABNORMAL) Prothrombin Time (PT) (09/19/2023 1:40 PM ENTRY LEVEL BUSINESS ANALYST) Pathologist [facility] Prothrombin Time, P 16.5(H) 9.4 - 12.5 sec 09/19/2023 1:55 PM ENTRY LEVEL BUSINESS ANALYST [facility] INR 1.5 0.9 - 1.1 09/19/2023 1:55 PM ENTRY LEVEL BUSINESS ANALYST [facility] Comment: ----ADDITIONAL INFORMATION---- Standard intensity warfarin therapeutic range: 2.0 to 3.0 ?? High intensity warfarin therapeutic range: 2.5 to 3.5 Blood (Blood, Arterial Line) 09/19/2023 1:40 PM ENTRY LEVEL BUSINESS ANALYST 09/19/2023 1:40 PM ENTRY LEVEL BUSINESS ANALYST Radha Iqbal M.D. LAB BLOOD ADD-ON [facility] [address] [place] [address], [facility] [address] [place] [address] * (ABNORMAL) Fibrinogen (09/19/2023 1:40 PM ENTRY LEVEL BUSINESS ANALYST) Pathologist [facility] Fibrinogen, P 174(L) 200 - 393 mg/dL 09/19/2023 1:56 PM ENTRY LEVEL BUSINESS ANALYST [facility] Blood (Blood, Arterial Line) 09/19/2023 1:40 PM ENTRY LEVEL BUSINESS ANALYST 09/19/2023 1:40 PM ENTRY LEVEL BUSINESS ANALYST Radha Iqbal M.D. LAB BLOOD ADD-ON Performing Organization Address [facility] Co de Phone Number [facility] [address] [place], [place] [address] [address] [place] [address] * APTT (Activated Partial Thromboplastin Time) (09/19/2023 1:40 PM ENTRY LEVEL BUSINESS ANALYST) Pathologist [facility] Activated Partial Thrombopl Time, P 33 25 - 37 sec 09/19/2023 1:56 PM ENTRY LEVEL BUSINESS ANALYST [facility] Blood (Blood, Arterial Line) 09/19/2023 1:40 PM ENTRY LEVEL BUSINESS ANALYST 09/19/2023 1:40 PM ENTRY LEVEL BUSINESS ANALYST Radha Iqbal M.D. LAB BLOOD ADD-ON Performing Organization Address City/[facility]/ZIP Co de Phone Number [facility] [address] [place] [address], [facility] [address] [place] [address] * (ABNORMAL) Glucose, Whole Blood (09/19/2023 1:40 PM ENTRY LEVEL BUSINESS ANALYST) Glucose 155(H) 70 - 140 mg/dL 09/19/2023 1:43 PM ENTRY LEVEL BUSINESS ANALYST [facility] Blood (Blood, Arterial Line) 09/19/2023 1:40 PM ENTRY LEVEL BUSINESS ANALYST 09/19/2023 1:40 PM ENTRY LEVEL BUSINESS ANALYST Radha Iqbal M.D. LAB BLOOD ADD-ON [facility] [address] [place], [place] [address] [address] [place] [address] * (ABNORMAL) Potassium, Blood (09/19/2023 1:40 PM ENTRY LEVEL BUSINESS ANALYST) Potassium, B 3.3(L) 3.6 - 5.2 mmol/L 09/19/2023 1:43 PM ENTRY LEVEL BUSINESS ANALYST [facility] Blood (Blood, Arterial Line) 09/19/2023 1:40 PM ENTRY LEVEL BUSINESS ANALYST 09/19/2023 1:40 PM ENTRY LEVEL BUSINESS ANALYST Radha Iqbal M.D. LAB BLOOD NON ADD-ON Performing Organization Address City/[facility]/ZIP Co de Phone Number [facility] [address] [place] [address], [facility] [address] [place] [address] * Sodium, B (09/19/2023 1:40 PM ENTRY LEVEL BUSINESS ANALYST) Sodium, B 143 135 - 145 mmol/L 09/19/2023 1:43 PM ENTRY LEVEL BUSINESS ANALYST [facility] Blood (Blood, Arterial Line) 09/19/2023 1:40 PM ENTRY LEVEL BUSINESS ANALYST 09/19/2023 1:40 PM ENTRY LEVEL BUSINESS ANALYST Radha Iqbal M.D. LAB BLOOD NON ADD-ON [facility] [address] [place] [address], [facility] [address] [place] [address] * (ABNORMAL) Calcium, Ionized (09/19/2023 1:40 PM ENTRY LEVEL BUSINESS ANALYST) Pathologist [facility] Calcium, Ionized, B 3.81(L) 4.65 - 5.30 mg/dL 09/19/2023 1:43 PM ENTRY LEVEL BUSINESS ANALYST [facility] Blood (Blood, Arterial Line) 09/19/2023 1:40 PM ENTRY LEVEL BUSINESS ANALYST 09/19/2023 1:40 PM ENTRY LEVEL BUSINESS ANALYST Radha Iqbal M.D. LAB BLOOD NON ADD-ON [facility] [address] [place] [address], [facility] [address] [place] [address] * (ABNORMAL) Blood Gas with Coox, Arterial (09/19/2023 1:40 PM ENTRY LEVEL BUSINESS ANALYST) Pathologist [facility] pO2 101 83 - 108 mm Hg 09/19/2023 1:43 PM ENTRY LEVEL BUSINESS ANALYST [facility] pCO2 36 35 - 48 mm Hg 09/19/2023 1:43 PM ENTRY LEVEL BUSINESS ANALYST [facility] pH 7.40 7.35 - 7.45 pH 09/19/2023 1:43 PM ENTRY LEVEL BUSINESS ANALYST STMA Base Excess -3(L) -2 - 3 mmol/L 09/19/2023 1:43 PM ENTRY LEVEL BUSINESS ANALYST STMA HCO3 22 22 - 26 mmol/L 09/19/2023 1:43 PM ENTRY LEVEL BUSINESS ANALYST STMA Hemoglobin, Venous 7.2(L) 13.2 - 16.6 g/dL 09/19/2023 1:43 PM ENTRY LEVEL BUSINESS ANALYST STMA O2Hb 97.1 94.0 - 98.0 % 09/19/2023 1:43 PM ENTRY LEVEL BUSINESS ANALYST STMA COHb 1.4 <3.0 % 09/19/2023 1:43 PM ENTRY LEVEL BUSINESS ANALYST STMA MetHb <1.0 <1.5 % 09/19/2023 1:43 PM ENTRY LEVEL BUSINESS ANALYST STMA CtO2 10.1(L) 18.0 - 21.0 vol % 09/19/2023 1:43 PM ENTRY LEVEL BUSINESS ANALYST [facility] Blood (Blood, Arterial Line) 09/19/2023 1:40 PM ENTRY LEVEL BUSINESS ANALYST 09/19/2023 1:40 PM ENTRY LEVEL BUSINESS ANALYST Radha Iqbal M.D. LAB BLOOD NON ADD-ON Performing Organization Address City/[facility]/ZIP Co de Phone Number [facility] [address] [place] [address], [facility] [address] [place] [address] * Transfuse autologous RBC (Cell Salvage) : (09/19/2023 1:28 PM ENTRY LEVEL BUSINESS ANALYST) Radha Iqbal M.D. BLOOD TRANSFUSION OR DERABLES * Transfuse Fresh Frozen Plasma : (09/19/2023 1:24 PM ENTRY LEVEL BUSINESS ANALYST) Radha Iqbal M.D. BLOOD TRANSFUSION OR DERABLES * Transfuse Platelets : (09/19/2023 1:09 PM ENTRY LEVEL BUSINESS ANALYST) Radha Iqbal M.D. BLOOD TRANSFUSION OR DERABLES * Lactate, B - Intra-op (09/19/2023 12:45 PM ENTRY LEVEL BUSINESS ANALYST) Lactate, B 2.0 0.5 - 2.2 mmol/L 09/19/2023 12:46 PM ENTRY LEVEL BUSINESS ANALYST [facility] Blood (Blood, Venous) 09/19/2023 12:45 PM ENTRY LEVEL BUSINESS ANALYST 09/19/2023 12:45 PM ENTRY LEVEL BUSINESS ANALYST Radha Iqbal M.D. LAB BLOOD NON ADD-ON Performing Organization Address City/[facility]/ZIP Co de Phone Number [facility] [address] [place] [address], [facility] [address] [place] [address] * (ABNORMAL) Glucose, Whole Blood (09/19/2023 12:45 PM ENTRY LEVEL BUSINESS ANALYST) Glucose 151(H) 70 - 140 mg/dL 09/19/2023 12:46 PM ENTRY LEVEL BUSINESS ANALYST [facility] Blood (Blood, Arterial Line) 09/19/2023 12:45 PM ENTRY LEVEL BUSINESS ANALYST 09/19/2023 12:45 PM ENTRY LEVEL BUSINESS ANALYST Radha Iqbal M.D. LAB BLOOD ADD-ON [facility] [address] [place] [address], [facility] [address] [place] [address] * Potassium, Blood (09/19/2023 12:45 PM ENTRY LEVEL BUSINESS ANALYST) Potassium, B 3.8 3.6 - 5.2 mmol/L 09/19/2023 12:46 PM ENTRY LEVEL BUSINESS ANALYST [facility] Blood (Blood, Arterial Line) 09/19/2023 12:45 PM ENTRY LEVEL BUSINESS ANALYST 09/19/2023 12:45 PM ENTRY LEVEL BUSINESS ANALYST Radha Iqbal M.D. LAB BLOOD NON ADD-ON Performing Organization Address City/[facility]/ZIP Co de Phone Number [facility] [address] [place], [place] [address] [address] [place] [address] * Sodium, B (09/19/2023 12:45 PM ENTRY LEVEL BUSINESS ANALYST) Sodium, B 142 135 - 145 mmol/L 09/19/2023 12:46 PM ENTRY LEVEL BUSINESS ANALYST [facility] Blood (Blood, Arterial Line) 09/19/2023 12:45 PM ENTRY LEVEL BUSINESS ANALYST 09/19/2023 12:45 PM ENTRY LEVEL BUSINESS ANALYST Radha Iqbal M.D. LAB BLOOD NON ADD-ON [facility] [address] [place] [address], [facility] [address] [place] [address] * Calcium, Ionized (09/19/2023 12:45 PM ENTRY LEVEL BUSINESS ANALYST) Calcium, Ionized, B 4.86 4.65 - 5.30 mg/dL 09/19/2023 12:46 PM ENTRY LEVEL BUSINESS ANALYST [facility] Blood (Blood, Arterial Line) 09/19/2023 12:45 PM ENTRY LEVEL BUSINESS ANALYST 09/19/2023 12:45 PM ENTRY LEVEL BUSINESS ANALYST Radha Iqbal M.D. LAB BLOOD NON ADD-ON [facility] [address] [place] [address], [facility] STMA [facility] [address] [place] [address] * (ABNORMAL) Blood Gas with Coox, Arterial (09/19/2023 12:45 PM ENTRY LEVEL BUSINESS ANALYST) pO2 360(H) 83 - 108 mm Hg 09/19/2023 12:46 PM ENTRY LEVEL BUSINESS ANALYST [facility] pCO2 37 35 - 48 mm Hg 09/19/2023 12:46 PM ENTRY LEVEL BUSINESS ANALYST [facility] pH 7.43 7.35 - 7.45 pH 09/19/2023 12:46 PM ENTRY LEVEL BUSINESS ANALYST [facility] Base Excess 0 -2 - 3 mmol/L 09/19/2023 12:46 PM ENTRY LEVEL BUSINESS ANALYST [facility] HCO3 25 22 - 26 mmol/L 09/19/2023 12:46 PM ENTRY LEVEL BUSINESS ANALYST [facility] Hemoglobin, Venous 8.5(L) 13.2 - 16.6 g/dL 09/19/2023 12:46 PM ENTRY LEVEL BUSINESS ANALYST [facility] O2Hb 98.9(H) 94.0 - 98.0 % 09/19/2023 12:46 PM ENTRY LEVEL BUSINESS ANALYST [facility] COHb 1.1 <3.0 % 09/19/2023 12:46 PM ENTRY LEVEL BUSINESS ANALYST [facility] MetHb <1.0 <1.5 % 09/19/2023 12:46 PM ENTRY LEVEL BUSINESS ANALYST [facility] CtO2 12.8(L) 18.0 - 21.0 vol % 09/19/2023 12:46 PM ENTRY LEVEL BUSINESS ANALYST [facility] Blood (Blood, Arterial Line) 09/19/2023 12:45 PM ENTRY LEVEL BUSINESS ANALYST 09/19/2023 12:45 PM ENTRY LEVEL BUSINESS ANALYST Radha Iqbal M.D. LAB BLOOD NON ADD-ON [facility] [address] [place], [place] [address] [place] [address] 200 [place] [address] * (ABNORMAL) Platelet Count (09/19/2023 12:44 PM ENTRY LEVEL BUSINESS ANALYST) [facility] Platelet Count 62(L) 135 - 317 x10(9)/L 09/19/2023 12:51 PM ENTRY LEVEL BUSINESS ANALYST [facility] Blood (Blood, Arterial Line) 09/19/2023 12:44 PM ENTRY LEVEL BUSINESS ANALYST 09/19/2023 12:44 PM ENTRY LEVEL BUSINESS ANALYST Radha Iqbal M.D. LAB BLOOD ADD-ON [facility] [address] [place], [place] [address] [place] [address] 200 [place] [address] * (ABNORMAL) Prothrombin Time (PT) (09/19/2023 12:44 PM ENTRY LEVEL BUSINESS ANALYST) [facility] Prothrombin Time, P 18.5(H) 9.4 - 12.5 sec 09/19/2023 1:00 PM ENTRY LEVEL BUSINESS ANALYST [facility] INR 1.7 0.9 - 1.1 09/19/2023 1:00 PM ENTRY LEVEL BUSINESS ANALYST [facility] Comment: ----ADDITIONAL INFORMATION---- Standard intensity warfarin therapeutic range: 2.0 to 3.0 ?? High intensity warfarin therapeutic range: 2.5 to 3.5 Blood (Blood, Arterial Line) 09/19/2023 12:44 PM ENTRY LEVEL BUSINESS ANALYST 09/19/2023 12:44 PM ENTRY LEVEL BUSINESS ANALYST Radha Iqbal M.D. LAB BLOOD ADD-ON [facility] [address] [place], [place] [address] [place] [address] 200 [place] [address] * (ABNORMAL) Fibrinogen (09/19/2023 12:44 PM ENTRY LEVEL BUSINESS ANALYST) [facility] Fibrinogen, P 195(L) 200 - 393 mg/dL 09/19/2023 12:59 PM ENTRY LEVEL BUSINESS ANALYST [facility] Blood (Blood, Arterial Line) 09/19/2023 12:44 PM ENTRY LEVEL BUSINESS ANALYST 09/19/2023 12:44 PM ENTRY LEVEL BUSINESS ANALYST Radha Iqbal M.D. LAB BLOOD ADD-ON Performing Organization Address City/[facility]/ZIP Co de Phone Number [facility] [address] [place] [address], [facility] [address] [place] [address] * (ABNORMAL) APTT (Activated Partial Thromboplastin Time) (09/19/2023 12:44 PM ENTRY LEVEL BUSINESS ANALYST) Pathologist [facility] Activated Partial Thrombopl Time, P 40(H) 25 - 37 sec 09/19/2023 1:01 PM ENTRY LEVEL BUSINESS ANALYST [facility] Blood (Blood, Arterial Line) 09/19/2023 12:44 PM ENTRY LEVEL BUSINESS ANALYST 09/19/2023 12:44 PM ENTRY LEVEL BUSINESS ANALYST Radha Iqbal M.D. LAB BLOOD ADD-ON Performing Organization Address [facility]/ZIP Co de Phone Number [facility] [address] [place] [address], [facility] [address] [place] [address] * ACT (Activated Clotting Time), POCT (09/19/2023 12:42 PM ENTRY LEVEL BUSINESS ANALYST) [facility] Activated Clotting Time 126 82 - 152 sec 09/19/2023 12:45 PM ENTRY LEVEL BUSINESS ANALYST PCLX 09/19/2023 12:4 2 PM ENTRY LEVEL BUSINESS ANALYST 09/19/2023 12:45 PM ENTRY LEVEL BUSINESS ANALYST Unknown Provider LAB POCT ORDERABLES - DEVICE Performing Organization Address City/[facility]/ZIP Co de Phone Number POC [facility] [address] [place] [address], [facility] PCLX [facility] [address] [place] [address] * (ABNORMAL) Hemoglobin (HGB), POCT (09/19/2023 12:17 PM ENTRY LEVEL BUSINESS ANALYST) Pathologist [facility] Hemoglobin, POCT, B 8.7(L) 13.2 - 16.6 g/dL 09/19/2023 12:23 PM ENTRY LEVEL BUSINESS ANALYST PCSM Blood 09/19/2023 12:1 7 PM ENTRY LEVEL BUSINESS ANALYST 09/19/2023 12:23 PM ENTRY LEVEL BUSINESS ANALYST Unknown Provider LAB POCT ORDERABLES - DEVICE Performing Organization Address City/[facility]/ZIP Co de Phone Number POC T [facility] [address] [place] [address], [facility] [address] [place] [address] * (ABNORMAL) ACT (Activated Clotting Time), POCT (09/19/2023 12:01 PM ENTRY LEVEL BUSINESS ANALYST) Activated Clotting Time 668(H) 82 - 152 sec 09/19/2023 12:18 PM ENTRY LEVEL BUSINESS ANALYST PCLX 09/19/2023 12:0 1 PM ENTRY LEVEL BUSINESS ANALYST 09/19/2023 12:18 PM ENTRY LEVEL BUSINESS ANALYST Unknown Provider LAB POCT ORDERABLES - DEVICE Performing Organization Address City/[facility]/ZIP Co de Phone Number POC [facility] [address] [place] [address], [facility] PCLX [facility] [address] [place] [address] * (ABNORMAL) Glucose, POCT (09/19/2023 12:00 PM ENTRY LEVEL BUSINESS ANALYST) Glucose, POCT, B 150(H) 70 - 140 mg/dL 09/19/2023 12:01 PM ENTRY LEVEL BUSINESS ANALYST PCSM Site ARTLINE 09/19/2023 12:01 PM ENTRY LEVEL BUSINESS ANALYST PCSM Blood 09/19/2023 12:0 0 PM ENTRY LEVEL BUSINESS ANALYST 09/19/2023 12:01 PM ENTRY LEVEL BUSINESS ANALYST Unknown Provider LAB POCT ORDERABLES- MANUAL POC RST [facility] [address] [place] [address], [facility] PCSM [facility]OC [address] [place] [address] * Surgical Pathology, Frozen Lab (09/19/2023 11:34 AM ENTRY LEVEL BUSINESS ANALYST) 09/25/2023 10:47 AM [facility] Participated in the Interpretation Amber Gutierrez M.D. -Pathology Resident 09/25/2023 10:47 AM [facility] Report electronically signed by Zohreh De La Cruz M.D. I verify that I have examined all relevant slides/materials for the specimen(s) and rendered or confirmed the diagnosis. 09/25/2023 10:47 AM [facility] Gross Description A. ??Received fresh labeled with the patient's name, medical record number, and designated as heart, left atrial appendage. ??It consists of a 2.6 x 2.4 x 1.3 cm atrial appendage without mural thrombus. ??Health Information Clerk sections are submitted for microscopy in cassette A1. ??Grossed by Teresa Qureshi M.S., GEORGE([facility]). B. ??Received fresh labeled with the patient's [...] up to 0.2 cm in greatest size. ??Health Information Clerk sections are submitted for microscopy in cassette B1, following decalcification. Grossed by Teresa Qureshi M.S., PA([facility]). 09/25/2023 10:47 AM [facility] Block Summary A Heart, left atrial appendage A1 B Heart, aortic valve B1 09/25/2023 10:47 AM [facility] Interpretation FINAL DIAGNOSIS A. ??Heart, left atrial appendage, excision: Mild myocyte hypertrophy and mild interstitial fibrosis, without mural thrombus. B. ??Heart, aortic valve, excision: ? 1. ??Degenerative fibrocalcific aortic valve disease, with moderate calcification ?(evaluated with Verhoeff-Van Gieson stain on block B1). ? 2. ??History of severe aortic stenosis and trivial aortic regurgitation. Diagnosis was made via digital imaging. 09/25/2023 10:47 AM ENTRY LEVEL BUSINESS ANALYST [facility] Tissue (Heart, Atrium) 09/19/2023 11:34 AM ENTRY LEVEL BUSINESS ANALYST Tissue (Heart Valve, Aortic) 09/19/2023 11:34 AM ENTRY LEVEL BUSINESS ANALYST Sarah Miller M.D., M.P.H. LAB SURG PATH ORDERABLES Performing Organization Address [facility] Co de Phone Number [facility] [address] [place] [address], [facility] STMA 200 [facility] 200 [place] [address] * Transfuse autologous RBC (Cell Salvage) : (09/19/2023 11:33 AM ENTRY LEVEL BUSINESS ANALYST) Radha Iqbal M.D. BLOOD TRANSFUSION OR DERABLES * (ABNORMAL) ACT (Activated Clotting Time), POCT (09/19/2023 11:28 AM ENTRY LEVEL BUSINESS ANALYST) Activated Clotting Time 587(H) 82 - 152 sec 09/19/2023 11:43 AM ENTRY LEVEL BUSINESS ANALYST PCLX 09/19/2023 11:2 8 AM ENTRY LEVEL BUSINESS ANALYST 09/19/2023 11:43 AM ENTRY LEVEL BUSINESS ANALYST Unknown Provider LAB POCT ORDERABLES - DEVICE Performing Organization Address [facility] de Phone Number POC [facility] [address] [place] [address], [facility] PCLX [facility] [address] [place] [address] * (ABNORMAL) ACT (Activated Clotting Time), POCT (09/19/2023 10:55 AM ENTRY LEVEL BUSINESS ANALYST) Activated Clotting Time 631(H) 82 - 152 sec 09/19/2023 11:05 AM ENTRY LEVEL BUSINESS ANALYST PCLX 09/19/2023 10:5 5 AM ENTRY LEVEL BUSINESS ANALYST 09/19/2023 11:05 AM ENTRY LEVEL BUSINESS ANALYST Unknown Provider LAB POCT ORDERABLES - DEVICE Performing Organization Address [facility] Co de Phone Number POC [facility] [address] [place] [address], [facility] PCLX [facility] [address] [place] [address] * (ABNORMAL) ACT (Activated Clotting Time), POCT (09/19/2023 10:24 AM ENTRY LEVEL BUSINESS ANALYST) Pathologist [facility] Activated Clotting Time 747(H) 82 - 152 sec 09/19/2023 10:37 AM ENTRY LEVEL BUSINESS ANALYST PCLX 09/19/2023 10:2 4 AM ENTRY LEVEL BUSINESS ANALYST 09/19/2023 10:37 AM ENTRY LEVEL BUSINESS ANALYST Unknown Provider LAB POCT ORDERABLES - DEVICE Performing Organization Address City/[facility]/ZIP Co de Phone Number POC [facility] [address] [place] [address], [facility] PCLX [facility] [address] [place] [address] * (ABNORMAL) Glucose, POCT (09/19/2023 10:23 AM ENTRY LEVEL BUSINESS ANALYST) Pathologist [facility] Glucose, POCT, B 148(H) 70 - 140 mg/dL 09/19/2023 10:24 AM ENTRY LEVEL BUSINESS ANALYST PCSM Site ARTLINE 09/19/2023 10:24 AM ENTRY LEVEL BUSINESS ANALYST [facility] Blood 09/19/2023 10:2 3 AM ENTRY LEVEL BUSINESS ANALYST 09/19/2023 10:24 AM ENTRY LEVEL BUSINESS ANALYST Unknown Provider LAB POCT ORDERABLES- MANUAL POC RST [facility] [address] [place] [address], [facility] PCSM [facility] POC [address] [place] [address] * Transfuse Red Blood Cells : (09/19/2023 10:13 AM ENTRY LEVEL BUSINESS ANALYST) Radha Iqbal M.D. BLOOD TRANSFUSION OR DERABLES * (DEMUNDO) - INTRAOPERATIVE WITH COLOR AND LIMITED DOPPLER (PROBE NOT PLACED) (09/19/2023 9:56 AM ENTRY LEVEL BUSINESS ANALYST) Pathologist [facility] Ejection Fraction [facility] EIND Anatomical Region Laterality Modality Echocardiography 09/19/2023 6:43 AM ENTRY LEVEL BUSINESS ANALYST Impressions 09/19/2023 1:45 PM ENTRY LEVEL BUSINESS ANALYST PROCEDURE:Transesophageal echocardiogram performed at the request of the primary environmental services project manager. Transesophageal echocardiogram completed without complications. PRE-BYPASS:Pre-bypass left [...] the Order-Level Documents. Narrative 09/19/2023 1:45 PM ENTRY LEVEL BUSINESS ANALYST For the complete report, see the Order-Level [...] PROCEDURE:Transesophageal echocardiogram performed at the request of thecritical access hospitalry environmental services project manager. Transesophageal echocardiogram completedwithout complications. PRE-BYPASS:Pre-bypass left ventricular [...] (Activated Clotting Time), POCT (09/19/2023 9:51 AM ENTRY LEVEL BUSINESS ANALYST) Activated Clotting Time 910(H) 82 - 152 sec 09/19/2023 10:04 AM ENTRY LEVEL BUSINESS ANALYST PCLX 09/19/2023 9:51 AM ENTRY LEVEL BUSINESS ANALYST 09/19/2023 10:04 AM ENTRY LEVEL BUSINESS ANALYST Unknown Provider LAB POCT ORDERABLES - DEVICE [facility]OC [facility] [address] [place] [address], [facility] PCLX [facility] POC [address] [place] [address] * Glucose, Whole Blood (09/19/2023 9:51 AM ENTRY LEVEL BUSINESS ANALYST) Glucose 126 70 - 140 mg/dL 09/19/2023 9:53 AM ENTRY LEVEL BUSINESS ANALYST [facility] Blood (Blood, Arterial Line) 09/19/2023 9:51 AM ENTRY LEVEL BUSINESS ANALYST 09/19/2023 9:51 AM ENTRY LEVEL BUSINESS ANALYST Sarah Miller M.D., M.P.H. LAB BLOOD ADD -ON [facility] [address] [place] [address], [facility] [address] [place] [address] * Potassium, Blood (09/19/2023 9:51 AM ENTRY LEVEL BUSINESS ANALYST) Potassium, B 4.1 3.6 - 5.2 mmol/L 09/19/2023 9:53 AM ENTRY LEVEL BUSINESS ANALYST [facility] Blood (Blood, Arterial Line) 09/19/2023 9:51 AM ENTRY LEVEL BUSINESS ANALYST 09/19/2023 9:51 AM ENTRY LEVEL BUSINESS ANALYST Sarah Miller M.D., M.P.H. LAB BLOOD NON ADD-ON [facility] [address] [place] [address], [facility] [address] [place] [address] * Sodium, B (09/19/2023 9:51 AM ENTRY LEVEL BUSINESS ANALYST) Sodium, B 143 135 - 145 mmol/L 09/19/2023 9:53 AM ENTRY LEVEL BUSINESS ANALYST [facility] Blood (Blood, Arterial Line) 09/19/2023 9:51 AM ENTRY LEVEL BUSINESS ANALYST 09/19/2023 9:51 AM ENTRY LEVEL BUSINESS ANALYST Sarah Miller M.D., M.P.H. LAB BLOOD NON ADD-ON Performing Organization Address City/[facility]/ZIP [place] [address] * (ABNORMAL) Calcium, Ionized (09/19/2023 9:51 AM ENTRY LEVEL BUSINESS ANALYST) Pathologist [facility] Calcium, Ionized, B 3.99(L) 4.65 - 5.30 mg/dL 09/19/2023 9:53 AM ENTRY LEVEL BUSINESS ANALYST [facility] Blood (Blood, Arterial Line) 09/19/2023 9:51 AM ENTRY LEVEL BUSINESS ANALYST 09/19/2023 9:51 AM ENTRY LEVEL BUSINESS ANALYST Sarah Miller M.D., M.P.H. LAB BLOOD NON ADD-ON Performing Organization Address City/[facility] [place] [address] * (ABNORMAL) Blood Gas with Coox, Arterial (09/19/2023 9:51 AM ENTRY LEVEL BUSINESS ANALYST) Pathologist [facility] pO2 339(H) 83 - 108 mm Hg 09/19/2023 9:53 AM ENTRY LEVEL BUSINESS ANALYST [facility] pCO2 38 35 - 48 mm Hg 09/19/2023 9:53 AM ENTRY LEVEL BUSINESS ANALYST [facility] pH 7.45 7.35 - 7.45 pH 09/19/2023 9:53 AM ENTRY LEVEL BUSINESS ANALYST [facility] Base Excess 2 -2 - 3 mmol/L 09/19/2023 9:53 AM ENTRY LEVEL BUSINESS ANALYST [facility] HCO3 26 22 - 26 mmol/L 09/19/2023 9:53 AM ENTRY LEVEL BUSINESS ANALYST [facility] Hemoglobin, Venous 8.1(L) 13.2 - 16.6 g/dL 09/19/2023 9:53 AM ENTRY LEVEL BUSINESS ANALYST [facility] O2Hb 99.1(H) 94.0 - 98.0 % 09/19/2023 9:53 AM ENTRY LEVEL BUSINESS ANALYST [facility] COHb 1.2 <3.0 % 09/19/2023 9:53 AM ENTRY LEVEL BUSINESS ANALYST [facility] MetHb <1.0 <1.5 % 09/19/2023 9:53 AM ENTRY LEVEL BUSINESS ANALYST [facility] CtO2 12.2(L) 18.0 - 21.0 vol % 09/19/2023 9:53 AM ENTRY LEVEL BUSINESS ANALYST [facility] Blood (Blood, Arterial Line) 09/19/2023 9:51 AM ENTRY LEVEL BUSINESS ANALYST 09/19/2023 9:51 AM ENTRY LEVEL BUSINESS ANALYST Sarah Miller M.D., M.P.H. LAB BLOOD NON ADD-ON [facility] [address] [place] [address], [facility] STMA [facility] [address] [place] [address] * (ABNORMAL) ACT (Activated Clotting Time), POCT (09/19/2023 9:26 AM ENTRY LEVEL BUSINESS ANALYST) Pathologist [facility] Activated Clotting Time 868(H) 82 - 152 sec 09/19/2023 9:37 AM ENTRY LEVEL BUSINESS ANALYST PCLX 09/19/2023 9:26 AM ENTRY LEVEL BUSINESS ANALYST 09/19/2023 9:37 AM ENTRY LEVEL BUSINESS ANALYST Unknown Provider LAB POCT ORDERABLES - DEVICE Performing Organization Address [facility] de Phone Number POC [facility] [address] [place] [address], [facility] PCLX [facility] POC [address] [place] [address] * (ABNORMAL) Hemoglobin (HGB), POCT (09/19/2023 9:24 AM ENTRY LEVEL BUSINESS ANALYST) Hemoglobin, POCT, B 9.8(L) 13.2 - 16.6 g/dL 09/19/2023 9:31 AM ENTRY LEVEL BUSINESS ANALYST PCSM Blood 09/19/2023 9:24 AM ENTRY LEVEL BUSINESS ANALYST 09/19/2023 9:31 AM ENTRY LEVEL BUSINESS ANALYST Unknown Provider LAB POCT ORDERABLES - DEVICE Performing Organization Address City/[facility]/ZIP Co de Phone Number POC RST [facility] [address] [place] [address], [facility] PCSM [facility] POC [address] [place] [address] * Lactate, B - Intra-op (09/19/2023 8:25 AM ENTRY LEVEL BUSINESS ANALYST) Lactate, B 0.9 0.5 - 2.2 mmol/L 09/19/2023 8:28 AM ENTRY LEVEL BUSINESS ANALYST [facility] Blood (Blood, Venous) 09/19/2023 8:25 AM ENTRY LEVEL BUSINESS ANALYST 09/19/2023 8:25 AM ENTRY LEVEL BUSINESS ANALYST Radha Ibqal M.D. LAB BLOOD NON ADD-ON [facility] [address] [place] [address], [facility] [address] [place] [address] * Glucose, Whole Blood (09/19/2023 8:25 AM ENTRY LEVEL BUSINESS ANALYST) Glucose 133 70 - 140 mg/dL 09/19/2023 8:28 AM ENTRY LEVEL BUSINESS ANALYST [facility] Blood (Blood, Arterial Line) 09/19/2023 8:25 AM ENTRY LEVEL BUSINESS ANALYST 09/19/2023 8:25 AM ENTRY LEVEL BUSINESS ANALYST Radha Iqbal M.D. LAB BLOOD ADD-ON [facility] [address] [place] [address], [facility] [address] [place] [address] * Potassium, Blood (09/19/2023 8:25 AM ENTRY LEVEL BUSINESS ANALYST) Potassium, B 3.8 3.6 - 5.2 mmol/L 09/19/2023 8:28 AM ENTRY LEVEL BUSINESS ANALYST [facility] Blood (Blood, Arterial Line) 09/19/2023 8:25 AM ENTRY LEVEL BUSINESS ANALYST 09/19/2023 8:25 AM ENTRY LEVEL BUSINESS ANALYST Radha Iqbal M.D. LAB BLOOD NON ADD-ON [facility] [address] [place] [address] * Sodium, B (09/19/2023 8:25 AM ENTRY LEVEL BUSINESS ANALYST) Sodium, B 143 135 - 145 mmol/L 09/19/2023 8:28 AM ENTRY LEVEL BUSINESS ANALYST [facility] Blood (Blood, Arterial Line) 09/19/2023 8:25 AM ENTRY LEVEL BUSINESS ANALYST 09/19/2023 8:25 AM ENTRY LEVEL BUSINESS ANALYST Radha Iqbal M.D. LAB BLOOD NON ADD-ON [facility] [address] [place] [address] * (ABNORMAL) Calcium, Ionized (09/19/2023 8:25 AM ENTRY LEVEL BUSINESS ANALYST) Pathologist [facility] Calcium, Ionized, B 4.50(L) 4.65 - 5.30 mg/dL 09/19/2023 8:28 AM ENTRY LEVEL BUSINESS ANALYST [facility] Blood (Blood, Arterial Line) 09/19/2023 8:25 AM ENTRY LEVEL BUSINESS ANALYST 09/19/2023 8:25 AM ENTRY LEVEL BUSINESS ANALYST Radha Iqbal M.D. LAB BLOOD NON ADD-ON [facility] [address] [place] [address] * (ABNORMAL) Blood Gas with Coox, Arterial (09/19/2023 8:25 AM ENTRY LEVEL BUSINESS ANALYST) pO2 421(H) 83 - 108 mm Hg 09/19/2023 8:28 AM ENTRY LEVEL BUSINESS ANALYST [facility] pCO2 40 35 - 48 mm Hg 09/19/2023 8:28 AM ENTRY LEVEL BUSINESS ANALYST STMA pH 7.42 7.35 - 7.45 pH 09/19/2023 8:28 AM ENTRY LEVEL BUSINESS ANALYST STMA Base Excess 1 -2 - 3 mmol/L 09/19/2023 8:28 AM ENTRY LEVEL BUSINESS ANALYST STMA HCO3 26 22 - 26 mmol/L 09/19/2023 8:28 AM ENTRY LEVEL BUSINESS ANALYST STMA Hemoglobin, Venous 9.8(L) 13.2 - 16.6 g/dL 09/19/2023 8:28 AM ENTRY LEVEL BUSINESS ANALYST STMA O2Hb 98.6(H) 94.0 - 98.0 % 09/19/2023 8:28 AM ENTRY LEVEL BUSINESS ANALYST STMA COHb 1.0 <3.0 % 09/19/2023 8:28 AM ENTRY LEVEL BUSINESS ANALYST STMA MetHb <1.0 <1.5 % 09/19/2023 8:28 AM ENTRY LEVEL BUSINESS ANALYST STMA CtO2 14.7(L) 18.0 - 21.0 vol % 09/19/2023 8:28 AM ENTRY LEVEL BUSINESS ANALYST STMA Blood (Blood, Arterial Line) 09/19/2023 8:25 AM ENTRY LEVEL BUSINESS ANALYST 09/19/2023 8:25 AM ENTRY LEVEL BUSINESS ANALYST Radha Iqbal M.D. LAB BLOOD NON ADD-ON [facility] [address] [place] [address], [facility] STMA [facility] [address] [place] [address] * ACT (Activated Clotting Time), POCT (09/19/2023 8:24 AM ENTRY LEVEL BUSINESS ANALYST) Activated Clotting Time 132 82 - 152 sec 09/19/2023 8:27 AM ENTRY LEVEL BUSINESS ANALYST PCLX 09/19/2023 8:24 AM ENTRY LEVEL BUSINESS ANALYST 09/19/2023 8:27 AM ENTRY LEVEL BUSINESS ANALYST Unknown Provider LAB POCT ORDERABLES - DEVICE POC [facility] SERVICES [address] [place] [address], [facility] PCLX [facility] [address] [place] [address] documented in this encounter Visit Diagnoses Diagnosis [...] Injury) (HCC) Hyperkalemia Acidosis Lactic 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 Therapy [facility] Antiplatelet Thrombocytopenia Secondary Hemiplegia Dominant Side Right [...] Sun09/21/23 at 1800 Given 09/26/2023 11:39 AM ENTRY LEVEL BUSINESS ANALYST 1,000 mg Given 09/26/2023 6:59 AM ENTRY LEVEL BUSINESS ANALYST 1,000 mg Given 09/26/2023 12:55 AM ENTRY LEVEL BUSINESS ANALYST 1,000 mg acetaminophen tablet 650 mg (TYLENOL) 650 mg, oral, Every 6 hours, First dose on Sun09/19/23 at 1800, For 48 hours Given 09/21/2023 11:25 AM ENTRY LEVEL BUSINESS ANALYST 650 mg Given 09/21/2023 5:21 AM ENTRY LEVEL BUSINESS ANALYST 650 mg Given 09/20/2023 11:13 PM ENTRY LEVEL BUSINESS ANALYST 650 mg albumin human 25 % injection 100 mL 100 mL, intravenous, at 100 mL/hr, Administer over 60 Minutes, Once, On 09/22/23 at 2330, For 1 dose, Infuse over 1 hour. New Bag 09/22/2023 11:29 PM ENTRY LEVEL BUSINESS ANALYST 100 mL 100 mL/hr albumin human 25 % injection 25 g 25 g, intravenous, Once, On 09/23/23 at 1030, For 1 dose, If no infusion rate specified: Administer the 25% solution at 100 mL/hr New Bag 09/23/2023 10:57 AM ENTRY LEVEL BUSINESS ANALYST 25 g albuterol nebulizer solution 2.5 mg 2.5 mg, nebulization, Every 4 hours PRN, wheezing, Starting on Sun09/19/23 at 1707 amiodarone tablet 200 mg (PACERONE) 200 mg, oral, 2 times daily, First dose on Sun09/26/23 at 0900, For 4 days Given 09/26/2023 7:57 AM ENTRY LEVEL BUSINESS ANALYST 200 mg amiodarone tablet 200 mg (PACERONE) 200 mg, oral, Daily, First dose on Sun09/30/23 at 0900, For 30 days amiodarone tablet 400 mg (PACERONE) 400 mg, oral, 2 times daily, First dose on [facility] 09/22/23 at 1245, For 4 days Given 09/25/2023 8:17 PM ENTRY LEVEL BUSINESS ANALYST 400 mg Given 09/25/2023 8:04 AM ENTRY LEVEL BUSINESS ANALYST 400 mg Given 09/24/2023 8:33 PM ENTRY LEVEL BUSINESS ANALYST 400 mg aspirin chewable tablet 81 mg 81 mg, oral, Daily, First dose on [facility] 09/20/23 at 0900 Given 09/26/2023 8:00 AM ENTRY LEVEL BUSINESS ANALYST 81 mg Given 09/25/2023 8:04 AM ENTRY LEVEL BUSINESS ANALYST 81 mg Given 09/24/2023 8:39 AM ENTRY LEVEL BUSINESS ANALYST 81 mg atorvastatin tablet 80 mg (LIPITOR) 80 mg, oral, Daily at bedtime, First dose on Sun09/19/23 at 2100 Given 09/25/2023 8:17 PM ENTRY LEVEL BUSINESS ANALYST 80 mg Given 09/24/2023 8:34 PM ENTRY LEVEL BUSINESS ANALYST 80 mg Given 09/23/2023 9:57 PM ENTRY LEVEL BUSINESS ANALYST 80 mg baclofen tablet 2.5 mg (LIORESAL) 2.5 mg, oral, Once as needed, muscle spasms, hiccups, Starting on Sun09/23/23 at 1638, For 1 dose Given 09/23/2023 9:57 PM ENTRY LEVEL BUSINESS ANALYST 2.5 mg baclofen tablet 2.5 mg (LIORESAL) 2.5 mg, oral, 3 times daily PRN, muscle spasms, hiccups, Starting on Sun09/24/23 at 0950 Given 09/24/2023 3:45 PM ENTRY LEVEL BUSINESS ANALYST 2.5 mg benzocaine-menthoL 15-3.6 mg per lozenge [...] Prophylaxis, surgical New Bag 09/20/2023 11:13 PM ENTRY LEVEL BUSINESS ANALYST 2 g 200 mL/h r New Bag 09/20/2023 2:59 PM ENTRY LEVEL BUSINESS ANALYST 2 g 200 mL/hr New Bag 09/20/2023 6:30 AM ENTRY LEVEL BUSINESS ANALYST 2 g 200 mL/hr clevidipine 0.5 mg/mL [...] 5-15 min. Rate/Dose Change 09/20/2023 10:16 PM ENTRY LEVEL BUSINESS ANALYST 2 mg/hr 4 mL/hr Rate/Dose Change 09/20/2023 10:09 PM ENTRY LEVEL BUSINESS ANALYST 3 mg/hr 6 mL/h r Rate/Dose Verify 09/20/2023 9:00 PM ENTRY LEVEL BUSINESS ANALYST 2 mg/hr 4 mL/hr EPINEPHrine 16 mcg/mL in NaCl 0.9% mL 250 mL infusion (ADRENALIN) 0.01 mcg/kg/min ? 85.8 kg Dosing weight (3.2175 mL/hr, rounded to 3.22 mL/hr), intravenous, Continuous, Starting on Sun09/19/23 at 1745, Protect from light and avoid extravasation, Patient Type: Do Not Titrate Rate/Dose Verify 09/19/2023 8:00 PM ENTRY LEVEL BUSINESS ANALYST 0.01 mcg/kg/min 3.22 mL/hr Rate/Dose Change 09/19/2023 7:07 PM ENTRY LEVEL BUSINESS ANALYST 0.01 mcg/kg/min 3. 22 mL/hr Rate/Dose Verify 09/19/2023 7:00 PM ENTRY LEVEL BUSINESS ANALYST 0.02 mcg/kg/min 6. 44 mL/hr finasteride tablet 5 mg (PROSCAR) 5 mg, oral, Daily, First dose on Sun09/21/23 at 0900, Hold with indwelling urinary catheter See tube feeding guidelines for tube feeding administration instructions. Given 09/26/2023 8:00 AM ENTRY LEVEL BUSINESS ANALYST 5 mg Given 09/25/2023 8:07 AM ENTRY LEVEL BUSINESS ANALYST 5 mg Given 09/24/2023 8:39 AM ENTRY LEVEL BUSINESS ANALYST 5 mg furosemide injection 20 mg (LASIX) 20 mg, intravenous, Once, On [place] 09/20/23 at 0845, For 1 dose, Adults: Doses less than 120 mg: IV push over 20 mg/minute. Doses 120 mg or greater: IVPB at 4 mg/minute. Peds/Neonates: Doses less than 120 mg over 0.5 mg/kg/minute. Doses 120 mg or greater: IVPB at 4 mg/minute. Given 09/20/2023 8:41 AM ENTRY LEVEL BUSINESS ANALYST 20 mg furosemide injection 20 mg (LASIX) 20 mg, intravenous, 2 times daily, First dose on Sun09/24/23 at 0945, Adults: Doses less than 120 mg: IV push over 20 mg/minute. Doses 120 mg or greater: IVPB at 4 mg/minute. Peds/Neonates: Doses less than 120 mg over 0.5 mg/kg/minute. Doses 120 mg or greater: IVPB at 4 mg/minute. Given 09/24/2023 10:23 AM ENTRY LEVEL BUSINESS ANALYST 20 mg furosemide injection 40 mg (LASIX) 40 mg, intravenous, Once, On Carissa 09/20/23 at 1345, For 1 dose, Adults: Doses less than 120 mg: IV push over 20 mg/minute. Doses 120 mg or greater: IVPB at 4 mg/minute. Peds/Neonates: Doses less than 120 mg over 0.5 mg/kg/minute. Doses 120 mg or greater: IVPB at 4 mg/minute. Given 09/20/2023 1:31 PM ENTRY LEVEL BUSINESS ANALYST 40 mg furosemide injection 40 mg (LASIX) 40 mg, intravenous, Once, On Car[place] 09/20/23 at 1800, For 1 dose, Adults: Doses less than 120 mg: IV push over 20 mg/minute. Doses 120 mg or greater: IVPB at 4 mg/minute. Peds/Neonates: Doses less than 120 mg over 0.5 mg/kg/minute. Doses 120 mg or greater: IVPB at 4 mg/minute. Given 09/20/2023 6:00 PM ENTRY LEVEL BUSINESS ANALYST 40 mg furosemide injection 40 mg (LASIX) 40 mg, intravenous, Every 12 hours, First dose on Sun09/21/23 at 0500, Adults: Doses less than 120 mg: IV push over 20 mg/minute. Doses 120 mg or greater: IVPB at 4 mg/minute. Peds/Neonates: Doses less than 120 mg over 0.5 mg/kg/minute. Doses 120 mg or greater: IVPB at 4 mg/minute. Given 09/21/2023 5:20 AM ENTRY LEVEL BUSINESS ANALYST 40 mg furosemide injection 40 mg (LASIX) [...] at 4 mg/minute. Given 09/22/2023 9:39 AM ENTRY LEVEL BUSINESS ANALYST 40 mg Given 09/21/2023 8:36 AM ENTRY LEVEL BUSINESS ANALYST 40 mg furosemide injection 40 mg (LASIX) [...] at 4 mg/minute. Given 09/25/2023 8:03 AM ENTRY LEVEL BUSINESS ANALYST 40 mg Given 09/24/2023 3:45 PM ENTRY LEVEL BUSINESS ANALYST 40 mg furosemide tablet 20 mg (LASIX) 20 mg, oral, Daily, First dose on Sun09/26/23 at 0900 Given 09/26/2023 8:01 AM ENTRY LEVEL BUSINESS ANALYST 20 mg furosemide tablet 40 mg (LASIX) 40 mg, oral, 2 times daily, First dose on 09/22/23 at 1700, On hold since 09/23/2023 at 1529 until manually unheld Given 09/23/2023 8:55 AM ENTRY LEVEL BUSINESS ANALYST 40 mg Given 09/22/2023 5:36 PM ENTRY LEVEL BUSINESS ANALYST 40 mg heparin (porcine) injection 5,000 Units 5,000 Units, subcutaneous, Every 8 hours scheduled, First dose on Sun09/20/23 at 0600 Given 09/23/2023 2:20 PM ENTRY LEVEL BUSINESS ANALYST 5,000 Units Left Upper Arm (Back ) Given 09/23/2023 6:04 AM ENTRY LEVEL BUSINESS ANALYST 5,000 Units L eft Upper Arm (Back) Given 09/22/2023 9:42 PM ENTRY LEVEL BUSINESS ANALYST 5,000 Units R ight Upper Arm (Back) [...] writing Insulin orders Given 09/26/2023 11:39 AM ENTRY LEVEL BUSINESS ANALYST 4 Units Left Upper Arm (Back ) Given 09/26/2023 7:59 AM ENTRY LEVEL BUSINESS ANALYST 2 Units Le ft Upper Arm (Back) Given 09/25/2023 5:42 PM ENTRY LEVEL BUSINESS ANALYST 4 Units Le ft Upper Arm (Back) [...] Factor: 0.03 Rate/Dose Change 09/20/2023 1:18 AM ENTRY LEVEL BUSINESS ANALYST 0 Units/hr 0 mL/hr Rate/Dose Change 09/20/2023 12:02 AM ENTRY LEVEL BUSINESS ANALYST 0 Units/hr 0 mL/h r Rate/Dose Verify 09/20/2023 12:01 AM ENTRY LEVEL BUSINESS ANALYST 3.5 Units/hr 3.5 mL/hr ipratropium-albuteroL 0.5-2.5 mg/3 mL nebulizer solution 3 mL (DUONEB) 3 mL, nebulization, 3 times daily, First dose on 09/24/23 at 1015 Given 09/25/2023 8:05 AM ENTRY LEVEL BUSINESS ANALYST 3 mL Given 09/24/2023 8:34 PM ENTRY LEVEL BUSINESS ANALYST 3 mL Given 09/24/2023 10:23 AM ENTRY LEVEL BUSINESS ANALYST 3 mL Lactated Ringer's bolus 250 mL 250 mL, intravenous, at 250 mL/hr, Administer over 1 Hours, Once, On [place]issa 09/20/23 at 0530, For 1 dose New Bag 09/20/2023 5:29 AM ENTRY LEVEL BUSINESS ANALYST 250 mL 250 mL/hr Lactated Ringer's 0-20 mL/hr, intravenous, Continuous, Starting on Sun09/19/23 at 1730 Rate/Dose Change 09/21/2023 7:02 AM ENTRY LEVEL BUSINESS ANALYST 0 mL/hr 0 mL/hr Rate/Dose Verify 09/20/2023 7:00 AM ENTRY LEVEL BUSINESS ANALYST 20 mL/hr 20 mL/h r Rate/Dose Verify 09/20/2023 6:00 AM ENTRY LEVEL BUSINESS ANALYST 20 mL/hr 20 mL/h r lactulose solution [...] 12 hours Medication Applied 09/20/2023 1:42 AM ENTRY LEVEL BUSINESS ANALYST 1 patch Chest magnesium sulfate in water IVPB 2 g 2 g, intravenous, at 25 mL/hr, Administer over 120 Minutes, Once, On Sun09/19/23 at 1730, For 1 dose New Bag 09/19/2023 5:47 PM ENTRY LEVEL BUSINESS ANALYST 2 g 25 mL/hr melatonin tablet 10 mg 10 mg, oral, Bedtime PRN, sleep, Starting on Sun09/20/23 at 2007 Given 09/20/2023 8:44 PM ENTRY LEVEL BUSINESS ANALYST 10 mg metoclopramide tablet 5 mg (REGLAN) 5 mg, oral, Every 8 hours PRN, hiccups, Starting on Sun09/25/23 at 1053 metoprolol tablet 12.5 mg (LOPRESSOR) 12.5 mg, oral, 2 times daily, First dose on Sun09/20/23 at 0945 Given 09/20/2023 9:41 AM ENTRY LEVEL BUSINESS ANALYST 12.5 mg metoprolol tartrate tablet 25 mg (LOPRESSOR) 25 mg, oral, 2 times daily, First dose (after last modification) on Sun09/20/23 at 2100 Given 09/26/2023 8:00 AM ENTRY LEVEL BUSINESS ANALYST 25 mg Given 09/25/2023 8:17 PM ENTRY LEVEL BUSINESS ANALYST 25 mg Given 09/25/2023 8:04 AM ENTRY LEVEL BUSINESS ANALYST 25 mg mupirocin 2 % ointment 1 Application (BACTROBAN) 1 Application, each nostril, 2 times daily, First dose on Sun09/19/23 at 2100, For 6 doses, Instill 0.5 gram (1 application) into each nostril. Massage nares for one minute after instilling the ointment. If patient has completed a 5 day course prior to surgery, discontinue mupirocin. Given 09/22/2023 9:39 AM ENTRY LEVEL BUSINESS ANALYST 1 Applicatio n Given 09/21/2023 8:28 PM ENTRY LEVEL BUSINESS ANALYST 1 Application Given 09/21/2023 8:37 AM ENTRY LEVEL BUSINESS ANALYST 1 Application NaCl 0.9% infusion 3-9 mL/hr, intravenous, Continuous, Starting on Sun09/19/23 at 1930, Hemodynamic Monitoring Lines: catheter lumen of central venous catheter (CVC) and Arterial lines for Intensive Care Units (ICU), Progressive Care Unit (PCU) and Telemetry units. Rate/Dose Verify 09/21/2023 9:00 AM ENTRY LEVEL BUSINESS ANALYST 3 mL/hr 3 mL/hr Rate/Dose Verify 09/21/2023 8:00 AM ENTRY LEVEL BUSINESS ANALYST 3 mL/hr 3 mL/hr Rate/Dose Verify 09/21/2023 7:00 AM ENTRY LEVEL BUSINESS ANALYST 3 mL/hr 3 mL/hr naloxone injection 0.2 [...] MAP >65 Rate/Dose Verify 09/19/2023 7:00 PM ENTRY LEVEL BUSINESS ANALYST 0.01 mcg/kg/min 3.22 mL/hr Rate/Dose Change 09/19/2023 6:34 PM ENTRY LEVEL BUSINESS ANALYST 0.01 mcg/kg/min 3. 22 mL/hr Rate/Dose Change 09/19/2023 6:04 PM ENTRY LEVEL BUSINESS ANALYST 0.03 mcg/kg/min 9. 65 mL/hr oxyCODONE IR tablet 10 mg (ROXICODONE) 10 mg, oral, Every 4 hours PRN, severe pain or score 7-10 of 10, Starting on Sun09/19/23 at 1707, Patient is able to take oral medications. Given 09/20/2023 1:42 AM ENTRY LEVEL BUSINESS ANALYST 10 mg oxyCODONE IR tablet 5 mg [...] or split tablet. Given 09/26/2023 6:59 AM ENTRY LEVEL BUSINESS ANALYST 40 mg Given 09/25/2023 6:54 AM ENTRY LEVEL BUSINESS ANALYST 40 mg Given 09/24/2023 5:23 AM ENTRY LEVEL BUSINESS ANALYST 40 mg polyethylene glycol powder packet 17 g (MIRALAX) 17 g, oral, Daily, First dose (after last modification) on [facility] 09/20/23 at 0900, If no bowel movement for 48 hours. Hold for loose stool. Avoid mixing with starch-based thickened liquids. Given 09/20/2023 8:02 AM ENTRY LEVEL BUSINESS ANALYST 17 g polyethylene glycol powder packet 17 g (MIRALAX) 17 g, oral, 2 times daily, First dose (after last modification) on [place] 09/20/23 at 2100, If no bowel movement for 48 hours. Hold for loose stool. Avoid mixing with starch-based thickened liquids. Given 09/22/2023 9:39 AM ENTRY LEVEL BUSINESS ANALYST 17 g Given 09/21/2023 8:28 PM ENTRY LEVEL BUSINESS ANALYST 17 g Given 09/21/2023 8:36 AM ENTRY LEVEL BUSINESS ANALYST 17 g polyethylene glycol powder packet 17 [...] RASS goal New Bag 09/19/2023 6:37 PM ENTRY LEVEL BUSINESS ANALYST 40 mcg/kg/min 20.6 mL/hr Rate/Dose Verify 09/19/2023 6:00 PM ENTRY LEVEL BUSINESS ANALYST 40 mcg/kg/min 20.6 mL/hr New Bag 09/19/2023 5:37 PM ENTRY LEVEL BUSINESS ANALYST 40 mcg/kg/min 20.6 mL/hr rOPINIRole tablet 0.5 mg (REQUIP) 0.5 mg, oral, 3 times daily, First dose (after last modification) on Sun09/20/23 at 1400, For restless legs Given 09/26/2023 1:19 PM ENTRY LEVEL BUSINESS ANALYST 0.5 mg Given 09/26/2023 7:58 AM ENTRY LEVEL BUSINESS ANALYST 0.5 mg Given 09/25/2023 8:17 PM ENTRY LEVEL BUSINESS ANALYST 0.5 mg sennosides-docusate sodium 8.6-50 mg per tablet 2 tablet (SENOKOT-S) 2 tablet, oral, 2 times daily, First dose on Sun09/19/23 at 2100, Hold for loose stool Given 09/23/2023 8:54 AM ENTRY LEVEL BUSINESS ANALYST 2 tablets Given 09/22/2023 9:39 AM ENTRY LEVEL BUSINESS ANALYST 2 tablets Given 09/21/2023 8:28 PM ENTRY LEVEL BUSINESS ANALYST 2 tablets sennosides-docusate sodium 8.6-50 mg per tablet 2 tablet (SENOKOT-S) 2 tablet, oral, Daily at bedtime, First dose (after last modification) on Sun09/24/23 at 2100, Hold for loose stool simethicone chewable tablet 125 mg (MYLICON) 125 mg, oral, Every 6 hours PRN, flatulence, Starting on Sun09/19/23 at 1707 Given 09/20/2023 8:03 AM ENTRY LEVEL BUSINESS ANALYST 125 mg sodium bicarbonate injection 100 mEq 100 mEq, intravenous, Once, On Sun09/19/23 at 2030, For 1 dose Given 09/19/2023 8:27 PM ENTRY LEVEL BUSINESS ANALYST 100 mEq sodium zirconium cyclosilicate 5 gram [...] for symptomatic hyperkalemia Given 09/20/2023 7:44 PM ENTRY LEVEL BUSINESS ANALYST 5 g tamsulosin 24 hr capsule 0.4 mg (FLOMAX) 0.4 mg, oral, Daily, First dose on Sun09/21/23 at 0900, Hold if indwelling urinary catheter in place Swallow whole. Do NOT crush, chew or open capsule. Given 09/26/2023 8:00 AM ENTRY LEVEL BUSINESS ANALYST 0.4 mg Given 09/25/2023 8:04 AM ENTRY LEVEL BUSINESS ANALYST 0.4 mg Given 09/24/2023 8:39 AM ENTRY LEVEL BUSINESS ANALYST 0.4 mg tranexamic acid 8 mg/mL in NaCl 0.9% 250 mL infusion (CYKLOKAPRON) 1.5 mg/kg/hr ? 87.2 kg (16.35 mL/hr, rounded to 16.4 mL/hr), intravenous, Continuous, Starting on Sun09/19/23 at 0645 Restarted 09/19/2023 5:19 PM ENTRY LEVEL BUSINESS ANALYST 2 mg/kg/hr 21.8 mL/hr Rate/Dose Change 09/19/2023 5:16 PM ENTRY LEVEL BUSINESS ANALYST 2 mg/kg/hr 21.8 mL /hr New Bag 09/19/2023 9:26 AM ENTRY LEVEL BUSINESS ANALYST 1.5 mg/kg/hr 16.35 mL/hr warfarin management (COUMADIN) [...] the RxCrush system. Given 09/24/2023 4:36 PM ENTRY LEVEL BUSINESS ANALYST 0.5 mg warfarin tablet 1 mg (COUMADIN) 1 mg, oral, Once, On Sun09/25/23 at 1700, For 1 dose, HAZARDOUS - Handle with care. Swallow whole. Do NOT chew or split tablet. May crush using the RxCrush system. Given 09/25/2023 5:34 PM ENTRY LEVEL BUSINESS ANALYST 1 mg warfarin tablet 2 mg (COUMADIN) 2 mg, oral, Once, On Sun09/21/23 at 1700, For 1 dose, HAZARDOUS - Handle with care. Swallow whole. Do NOT chew or split tablet. May crush using the RxCrush system. Given 09/21/2023 6:39 PM ENTRY LEVEL BUSINESS ANALYST 2 mg warfarin tablet 2 mg (COUMADIN) 2 mg, oral, Once, On 09/22/23 at 1700, For 1 dose, HAZARDOUS - Handle with care. Swallow whole. Do NOT chew or split tablet. May crush using the RxCrush system. Given 09/22/2023 5:36 PM ENTRY LEVEL BUSINESS ANALYST 2 mg documented in this encounter Active and Recently Administered Medications Times are shown in ENTRY LEVEL BUSINESS ANALYST. Scheduled Medication Order 09/24/2023 09/25/2023 09/26/2023 acetaminophen [...] or open capsule. 0839 (Given - Provider: Radah Lara R.N.) 0804 (Given - Provider: Kelsey [...] documented as of this encounter Care Teams Lead Burner Relationship Specialty Start Date End Date Elsewhere, Pcp PCP - General Internal Medicine 08/19/23 09/27/23 documented as of this encounter
--- OUTSIDE RECORDS SUMMARY | 2023-12-07 11:27 | XMS_ITS | Encounter Summary ---
Author Name Unknown Organization [facility] Address [address] [place] [id number] Care Team Providers Care Exhauster Name Role Phone Kylah Crum M.D. Primary Care Provider [phone] Encounter Details Date Type Department Care Team (Late st Contact Info) Description 09/21/2023 Orders Only Preoperative Evaluation Center in [place], [place] [address] [place] [phone] Fanny Villalobos, PIERRE, C.N.P., D.N.P. [address] [place] [phone] Social History Tobacco Use Types Packs/Day Years [...] (Latest Contact Info) Description 12/21/2023 10:15 AM RN RESOURCE NURSE Clinical Communication Virtual Review in [place], [place] [address] [place] [address] 12/24/2023 2:00 PM RN RESOURCE NURSE Comprehensive Visit Department of Cardiovascular Medicine in [place], [place] [address] [place] [phone] Gudelia Soto M.D. [address] [place] [phone] 01/01/2024 3:45 PM RN RESOURCE NURSE Comprehensive Visit Division of Hematology in [place], [place] [address] [place] [phone] Billy Segal APRN, C.N.P., D.N.P. [address] [place] [phone] documented as of this encounter Visit Diagnoses Not on filedocumented in this encounter Additional Health Concerns Assessment Noted Time PHQ-9 Depression Total Score: 1 09/10/20 23 2:06 PM CDT documented as of this encounter Care Teams Exhauster Relationship Specialty Start Date End Date Kylah Crum M.D. [address] [place] [phone] PCP - General Family Medicine 09/28/23 documented as of this encounter
--- OUTSIDE RECORDS SUMMARY | 2023-12-07 11:27 | XMS_ITS | Encounter Summary ---
Author Name Unknown Organization [facility] Address [address] [place] [address] Care Team Providers Care Livestock Inspector Name Role Phone Elsewhere, Pcp Primary Care Provider Unavailabl e Encounter Details Date Type Department Care Team (Latest Contact Info) Description 09/19/2023 7:00 AM ASSEMBLY LINE BRAZER Ancillary Procedure Department of Anesthesiology Social History [...] your living situation today? I have a [facility] place to live 08/29/2023 Sex and Gender Information Value Date Recorded Sex Assigned at Male 08/29/2023 11:06 AM CDT Gender Identity Male 08/29/2023 11:06 AM CDT Sexual Orientation Straight 08/29/2023 11 :06 AM CDT documented as of this encounter Plan of Treatment Upcoming Encounters Date Type Department Care Team (Latest Contact Info) Description 12/21/2023 10:15 AM ASSEMBLY LINE BRAZER Clinical Communication Virtual Review in [place], [place] [address] [place] [address] 12/24/2023 2:00 PM ASSEMBLY LINE BRAZER Comprehensive Visit Department of Cardiovascular Medicine in [place], [place] [address] [place] [phone] Gudelia Soto M.D. [address] [place] [phone] 01/01/2024 3:45 PM ASSEMBLY LINE BRAZER Comprehensive Visit Division of Hematology in [place], [place] [address] [place] [phone] Billy Segal APRN, C.N.P., D.N.P. [address] [place] [phone] documented as of this encounter Procedures Procedure Name Priority Date/Time Associated Diagnosis Comments ANESTHESIOLOGY IMAGE EXAM Routine 09/19/2023 7:00 AM ASSEMBLY LINE BRAZER documented in this encounter Results * Non-Radiology Image-Anesthesiology Image Exam (09/19/2023 7:00 AM ASSEMBLY LINE BRAZER) 09/19/2023 7:00 AM ASSEMBLY LINE BRAZER Narrative IIMS - 09/19/2023 8:29 AM ASSEMBLY LINE BRAZER This order has been created and auto-finalized [...] documented as of this encounter Care Teams Livestock Inspector Relationship Specialty Start Date End Date Elsewhere, Pcp PCP - General Internal Medicine 08/19/23 09/27/23 documented as of this encounter
--- OUTSIDE RECORDS SUMMARY | 2023-12-07 11:27 | XMS_ITS | Encounter Summary ---
Author Name Unknown Organization [facility] Address [address] [place] [id number] Care Team Providers Care Head Of Art Name Role Phone Elsewhere, Pcp Primary Care Provider Unavailabl e Reason for Visit * Auth/Cert (Routine) Specialty Diagnoses / Procedures Referred By Sebas t Referred To Contact Diagnoses Stenosis Aortic Valve Acquired Stenosis Aortic Valve Acquired [I35.0] Procedures ID RPLC AORTIC VLV W PROSTH VLV ID COR ART BYPASS 1 COR JORDAN GRAFT ID REOP COR ART BYP/VALVE PROC ID ENDO SURG W VA HARVEST CABG ID EXCL DAHIANA OPN OTH PX ANY METH REPLACEMENT AORTIC VALVE 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 - REDO LIGATION LEFT ATRIAL APPENDAGE ISOLATION PULMONARY VEIN Referral ID Status Reason Start Date Expiration Date Visits Re quested Visits Authorized [id number] 1 1 Encounter Details Date Type Department Care Team ([facility] Contact Info) Description 09/19/2023 6:45 AM AIR TABLE OPERATOR Ancillary Procedure RST ROMB MAIN OR [address] [place] [phone] Sarah Miller M.D., M.P.H. [address] [place] [phone] Social History Tobacco Use Types Packs/Day Years [...] your living situation today? I have a [facility] place to live 08/29/2023 Sex and Gender Information Value Date Recorded Sex Assigned at Male 08/29/2023 11:06 AM CDT Gender Identity Male 08/29/2023 11:06 AM CDT Sexual Orientation Straight 08/29/2023 11 :06 AM CDT documented as of this encounter Plan of Treatment Upcoming Encounters Date Type Department Care Team (Latest Contact Info) Description 12/21/2023 10:15 AM AIR TABLE OPERATOR Clinical Communication Virtual Review in [place], [place] [address] [place] [address] 12/24/2023 2:00 PM AIR TABLE OPERATOR Comprehensive Visit Department of Cardiovascular Medicine in [place], [place] [address] [place] [phone] Gudelia Soto M.D. [address] [place] [phone] 01/01/2024 3:45 PM AIR TABLE OPERATOR Comprehensive Visit Division of Hematology in [place], [place] [address] [place] [phone] Billy Segal APRN, C.N.P., D.N.P. [address] [place] [phone] documented as of this encounter Procedures Procedure Name Priority Date/Time Associated Diagnosis Comments (EDMUNDO) - INTRAOPERATIVE WITH COLOR AND LIMITED DOPPLER (PROBE NOT PLACED) Routine 09/19/2023 9:56 AM AIR TABLE OPERATOR documented in this encounter Results * (EDMUNDO) - INTRAOPERATIVE WITH COLOR AND LIMITED DOPPLER (PROBE NOT PLACED) (09/19/2023 9:56 AM AIR TABLE OPERATOR) Ejection Fraction [facility] Anatomical Region Laterality Modality Echocardiography 09/19/2023 6:43 AM AIR TABLE OPERATOR Impressions 09/19/2023 1:45 PM AIR TABLE OPERATOR PROCEDURE:Transesophageal echocardiogram performed at the request of the primary automotive services manager. Transesophageal echocardiogram completed without complications. PRE-BYPASS:Pre-bypass [...] the Order-Level Documents. Narrative 09/19/2023 1:45 PM AIR TABLE OPERATOR For the complete report, see the Order-Level [...] performed at the request of [facility] automotive services manager. Transesophageal echocardiogram completedwithout complications. PRE-BYPASS:Pre-bypass left [...] documented as of this encounter Care Teams Head Of Art Relationship Specialty Start Date End Date Elsewhere, Pcp PCP - General Internal Medicine 08/19/23 09/27/23 documented as of this encounter
--- OUTSIDE RECORDS SUMMARY | 2023-12-07 11:27 | XMS_ITS | Encounter Summary ---
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 [address] [place] [phone] [facility] Referral ID Status Reason Start Date Expiration Date Visits Re quested Visits Authorized [id number] Closed 09/24/2023 09/23/2026 1 1 M MAN Encounter Details Date Type Department Care Team (Late st Contact Info) Description 09/24/2023 Clinical Communication [facility] [address] [place] [phone] Sarah Miller M.D., M.P.H. [address] [place] [phone] Social History Tobacco Use Types Packs/Day Years [...] your living situation today? I have a [facility] place to live 08/29/2023 Sex and Gender Information Value Date Recorded Sex Assigned at Male 08/29/2023 11:06 AM CDT Gender Identity Male 08/29/2023 11:06 AM CDT Sexual Orientation Straight 08/29/2023 11 :06 AM CDT documented as of this encounter Plan of Treatment Upcoming Encounters Date Type Department Care Team (Latest Contact Info) Description 12/21/2023 10:15 AM BROOM MAN Clinical Communication Virtual Review in [place], [place] [address] [place], [place] [id number] 12/24/2023 2:00 PM BROOM MAN Comprehensive Visit Department of Cardiovascular Medicine in [place], [place] [address] [place] [phone] Gudelia Soto M.D. [address] [place] [phone] 01/01/2024 3:45 PM BROOM MAN Comprehensive Visit Division of Hematology in [place], [place] [address] [place] [address] Billy Segal APRN, C.N.P., D.N.P. [address] [place] [phone] Scheduled Referrals Name Type Priority Associated Diagnoses [...] documented as of this encounter Care Teams Chemistry Faculty Member Relationship Specialty Start Date End Date Elsewhere, Pcp PCP - General Internal Medicine 08/19/23 09/27/23 documented as of this encounter
--- OUTSIDE RECORDS SUMMARY | 2023-12-07 11:28 | XMS_ITS | Encounter Summary ---
Author Name Unknown Organization [facility] Address [address] [place] [address] Care Team Providers Care Neurology Manager Name Role Phone Elsewhere, Pcp Primary Care Provider Unavailabl e Reason for Visit * Auth/Cert (Routine) Specialty Diagnoses / Procedures Referred By Sebas t Referred To Contact Diagnoses Stenosis Aortic Valve Acquired Stenosis Aortic Valve Acquired [I35.0] Procedures DE RPLC AORTIC VLV W PROSTH VLV DE COR ART BYPASS 1 COR JORDAN GRAFT DE REOP COR ART BYP/VALVE PROC DE ENDO SURG W VA HARVEST CABG DE EXCL DAHIANA OPN OTH PX ANY METH REPLACEMENT AORTIC VALVE 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 - REDO LIGATION LEFT ATRIAL APPENDAGE ISOLATION PULMONARY VEIN Referral ID Status Reason Start Date Expiration Date Visits Re quested Visits Authorized [id number] 1 1 Encounter Details Date Type Department Care Team (Late st Contact Info) Description 09/19/2023 7:00 AM SENIOR ACTUARIAL ANALYST - 09/19/2023 3:27 PM SENIOR ACTUARIAL ANALYST Surgery RST ROMB MAIN OR [address] [place] [phone] Sarah Miller M.D., M.P.H. [address] [place] [phone] REPLACEMENT AORTIC VALVE, POSSIBLE AORTIC ROOT ENLARGEMENT. [...] your living situation today? I have a [facility] place to live 08/29/2023 Sex and Gender Information Value Date Recorded Sex Assigned at Male 08/29/2023 11:06 AM CDT Gender Identity Male 08/29/2023 11:06 AM CDT Sexual Orientation Straight 08/29/2023 11 :06 AM CDT documented as of this encounter Last Filed Vital Signs Vital Sign Reading Time Taken Comments Blood Pressure 140/80 09/19/2023 7:13 AM SENIOR ACTUARIAL ANALYST Pulse 72 09/19/2023 7:13 AM SENIOR ACTUARIAL ANALYST Temperature 37 ??C (98.6 ??F) 09/19/2023 7:13 AM SENIOR ACTUARIAL ANALYST Respiratory Rate 16 09/19/2023 7:13 AM SENIOR ACTUARIAL ANALYST Oxygen Saturation 97% 09/19/2023 7:13 AM SENIOR ACTUARIAL ANALYST Inhaled Oxygen Concentration - - Weight 85.8 kg (189 lb 2.5 oz) 09/19/2023 7:13 A M SENIOR ACTUARIAL ANALYST Height 173 cm (5' 8.11) 09/19/2023 7:13 AM SENIOR ACTUARIAL ANALYST Body Mass Index 29.37 09/26/2023 7:46 AM SENIOR ACTUARIAL ANALYST documented in this encounter Discharge Summaries [...] (Acute Kidney Injury) (HCC) Hyperkalemia 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 Therapy Care Home Antiplatelet Device Cardiac Status Post Cardiac Surgery [...] Follow-up recommendations post Cardiac Surgery Follow-up Visit: [place] [facility] via a video visit on 10/03, Primary Care Provider appointment on 10/01 with INR, Primary Physician Relations Representative appointment TBD, referral sent. INR appointment on 09/28 at local lab. Follow-up Testing: Post-operative testing per the discretion of the PCP or Physician Relations Representative. Monitor INR at discretion of SNF provider [...] as needed for optimal blood pressure control. [place] [employer] Guidelines for individuals with coronary [...] atrial fibrillation or per recommendations by the Physician Relations Representative. Antiplatelet Therapy: Aspirin 81 mg daily recommended [...] assess surgical incision sites for healing. Contact [facility] Cardi[facility] Surgery [phone] with any concerns. Anticoagulation: Warfarin (Coumadin initiated) [...] the cardiac rehab program. Patient referred to: [facility] [address] [place] [phone] Recommend that the patient check with insurance company to verify coverage of the cost of cardiac rehabilitation program visits. COVID-19: Due to the current COVID-19 pandemic, the patient was instructed to monitor for any new fever, cough, shortness of breath, sore throat, diarrhea, respiratory distress, or chills or muscle aches. Theyare to contact [facility] COVID-19 nurse line ([phone]) with any concerns. Reviewed the best measures [...] covers your nose and mouth OUTPATIENT FOLLOWUP [facility] Appointments: Scheduled Appointments 10/03/2023 1:30 PM [facility] Cardi[facility] For appointment details refer to your Patient Appointment Guide. Outside [facility] Appointments: Consults and Follow-ups to Schedule Take a copy of this after visit summary to your appointment(s). [place] October 01, 2023 - Sunday -- 1:15 Arrival - INR blood test at [facility]. October 01, 2023 - Sunday -- 2:10 Arrival - Hospital Follow-Up with, primary care provider Dr. Cresencio Medina, at [facility]. RECOMMENDATIONS: *A referral for a Physician Relations Representative will need to be placed by your PCP, please schedule this visit 1-3 months after discharge. [facility] You may have outpatient appointments at [facility] that changed during your hospitalization. Referto your [facility] Patient Appointment Guide (PAG) for the most current schedule of appointments and detailed instructions of tests/procedures. Call [phone], if you did not receive an PAG or need to CANCEL any [facility] appointment(s). DISCHARGE MEDICATIONS: At the time of dismissal, pain medications (examples include oxycodone, Dilaudid, Tramadol, etc.)will be prescribed to you if needed. Duration will be determined on a [id number] basis and will not exceed 2 weeks. [...] M.P.H. Primary Jenny Stanford M.B., B.Ch., B.A.O. Spindle Setter Dismissal Vitals: Admission Weight: 85.8 kg Blood [...] 1.3 cm atrial appendage without mural thrombus. Data Entry Clerk sections are submitted for microscopy in cassette A1. Grossed by Teresa Qureshi M.S., PA([facility]). B. Received fresh labeled with the [...] up to 0.2 cm in greatest size. Data Entry Clerk sections are submitted for microscopy in cassette B1, following decalcification. Grossed by Teresa Qureshi M.S., PA([facility]). Block Summary A Heart, left atrial [...] were provided to the patient and caregiver(s). OR ACTUARIAL ANALYST documented in this encounter Discharge Instructions * Discharge Instructions* Anatoliy Iqbal - 09/26/2023 8:49 AM SENIOR ACTUARIAL ANALYST You were discharged from the [facility] Cardiovascular Surgery - [facility] Service. Please identify this service name if you call with questions after hospitalization. OR ACTUARIAL ANALYST documented in this encounter Medications at [...] as of this encounter Progress Notes * Eloias Oro M.S.N., M.H.A., R.N., GRISEL - 09/26/2023 2:04 PM SENIOR ACTUARIAL ANALYST SUBJECTIVE sales strategy manager Eloisa spoke with Mrs. Harris after nursing informed CM that patient no longer wants a residential facility. The patient has talked with his son and daughter and they will providecare for him at home. OBJECTIVE To have a decision made by patient and family about already accepted residential facility versus home with family. ASSESSMENT / PLAN Mr. Harris will now discharge home with family . SNF has been cancelled and medical team is aware. Damon Kraus, M.H.A., R.N., GRISEL 09/26/23 OR ACTUARIAL ANALYST * Neelam Villalobos O.T., O.T.Petra - 09/26/2023 1:43 PM CST Occupational Therapy Acute Hospital Inpatient Treatment SUBJECTIVE Patient's Name: Jong Harris Referring/Attending Provider: Sarah Miller M.D. Medical Diagnosis: Stenosis Aortic Valve Acquired [I35.0] Acquired Aortic Valve Disorder [I35.9] Reason for Referral: Occupational Therapy Evaluation and Treatment OT general acute Onset Date: 09/19/23 Payor: [facility] / Plan: AARP MEDICARE ADVANTAGE [place] [...] Education provided today: as noted Outcome Measures [facility] Inpatient Short Form: Putting on and [...] Standardized Score: 51.12 Interpretation: Clinicians answer the [facility] Inpatient Short Form based on observed [...] (min): 15 min Neelam Villalobos O.T., O.TRomeo OR ACTUARIAL ANALYST * Aspen Greene P.T.A. - 09/26/2023 1:32 PM CST Physical Therapy Inpatient Treatment Note SUBJECTIVE Patient's Name: Jong Harris Referring/Attending: Sarah Miller M.D. Medical Diagnosis: Stenosis Aortic Valve Acquired [I35.0] Acquired Aortic Valve Disorder [I35.9] Reason for Referral: PT Evaluate and Treat General PT acute Onset Date: 09/19/23 Payor: [facility] / Plan: AARP MEDICARE ADVANTAGE [place] [...] needs met and questions answered. Outcome Measures [facility] Inpatient Short Form: -[facility] Basic Mobility (V.2) How much help from [...] Climbing 3-5 steps with a railing?: None -[facility] Basic Mobility (V.2) Raw Score: 24 -[facility] Basic Mobility (V.2) Standardized Score: 57.68 Interpretation: Clinicians answer the -[facility] Inpatient Short Form based on [...] Next Inpatient Appointment: 09/27/23 PT Plan Comments: [place] with ambulation. Treatment interventions may include: Treatment/Interventions: Therapeutic exercise, Therapeutic functional activity, Neuromuscular re-education, Gait training SALESPERSON FLORIST SUPPLIES Visit Trackin Billing: Time Spent with Patient Therapeutic Interventions Gait Training (min): 20 min Therapeutic Activity (min): 20 min Time Tracking Total Timed Units (min): 40 min Total Treatment Time (min): 40 min Aspen Greene P.T.A. OR ACTUARIAL ANALYST Associated attestation - Lida Woodward P.T., D.P.TJarrett - 09/27/2023 11:06 AM SENIOR ACTUARIAL ANALYST The patient has dismissed from the [...] stable and planned to discharge to a residential facility on 09/26. 24 Hour Events: Jong [...] Glomerular Filtration Rate (GFR) 30 To 44 ([facility]) #3 Hyperlipidemia On Treatment #4 Benign Prostatic Hyperplasia Without Obstruction #5 Atrial Fibrillation Paroxysmal ([facility]) #6 Diabetes Mellitus Type 2 ([facility]) #7 Anemia In Chronic Kidney Disease #8 Hemiplegia Dominant Side Right ([facility]) #9 Hypertension Essential Primary #10 Stroke Cerebrovascular Accident Personal History #11 Coronary Arterial Bypass Graft Status Post Personal History #12 Prosthesis Aortic Valve #13 Coronary Artery Disease Without Angina Pectoris #14 Anemia Posthemorrhagic Acute (Blood Loss Anemia) #15 Failure Renal Acute (Acute Kidney Injury) ([facility]) #16 Hyperkalemia #17 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 #18 Therapy Care Home Antiplatelet #19 Device Cardiac Status Post #20 [...] of care of this patient with the data processing systems consultant surgeon, Dr. Miller. Anticipated dismissal date: 09/27. Anticipated destination: SNF. PT/OT following. Barriers to discharge: MANJEET Facility placement Medication reconciliation completed. OR ACTUARIAL ANALYST * Eloisa Oro M.S.N., Alexis, R.N., GRISEL - 09/26/2023 7:44 AM SENIOR ACTUARIAL ANALYST The patient is being prepared to discharge on 09/26/2023 at if medically ready for transfer. Contact CASE MANAGEMENT if time needs to be changed. Transportation will be provided by family. . Destination - Admitted Since 09/19/2023 Service Provider Selected Services Address Phone Fax Patient Preferred [facility] [address] [place] [address] [phone] -- Contact: Admissions Transportation oxygen: No oxygen [...] be completed. - Will continue to follow. OR ACTUARIAL ANALYST * Ginette Greene P.A.-C., M.S. - 09/25/2023 [...] Glomerular Filtration Rate (GFR) 30 To 44 ([facility]) #3 Hyperlipidemia On Treatment #4 Benign Prostatic Hyperplasia Without Obstruction #5 Atrial Fibrillation Paroxysmal ([facility]) #6 Diabetes Mellitus Type 2 ([facility]) #7 Anemia In Chronic Kidney Disease #8 Hemiplegia Dominant Side Right ([facility]) #9 Hypertension Essential Primary #10 Stroke Cerebrovascular Accident Personal History #11 Coronary Arterial Bypass Graft Status Post Personal History #12 Prosthesis Aortic Valve #13 Coronary Artery Disease Without Angina Pectoris #14 Anemia Posthemorrhagic Acute (Blood Loss Anemia) #15 Failure Renal Acute (Acute Kidney Injury) ([facility]) #16 Hyperkalemia #17 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 #18 Therapy Pipe Washer Antiplatelet #19 Device Cardiac Status Post #20 [...] of care of this patient with the data processing systems consultant surgeon, Dr. Miller. Anticipated dismissal date: 09/26. Anticipated destination: SNF. PT/OT following. Barriers to discharge: MANJEET Facility placement Medication reconciliation completed. OR ACTUARIAL ANALYST * Yun Childs M.S.N., R.N. - 09/25/2023 2:07 PM CST SUBJECTIVE The foster care case manager met with the patient and his to discuss the accepted and pending referrals. The patient's asked the foster care case manager to call the [facility] for possibility of taking patient because it is their first preference. [facility] and left a voice message for call [...] following plan. Patient's anticipated discharge disposition is: Jail Facility Referrals sent. [place] sent to [facility]. Transportation upon dismissal will be provided by family-- . toy parts former supervisor encouraged the patient to reach out with any questions/concerns. Damon Moreno, R.N. 09/25/23 OR ACTUARIAL ANALYST * Lida Woodward P.T., D.P.T. - 09/25/2023 [...] needs met and questions answered. Outcome Measures -[facility] Inpatient Short Form: -[facility] Basic Mobility (V.2) How much help from [...] 3-5 steps with a railing?: A Little AM-[facility] Basic Mobility (V.2) Raw Score: 20 -[facility] Basic Mobility (V.2) Standardized Score: 43.99 Interpretation: Clinicians answer the -[facility] Inpatient Short Form based on [...] (min): 20 min Lida Woodward P.T., D.P.T. OR ACTUARIAL ANALYST * Pamela Medina Pharm.D., R.Ph. - [...] the hospital. Pamela Medina Pharm.D., R.Ph. Contact [phone] with any questions about this note. OR ACTUARIAL ANALYST * Pamela Medina Pharm.D., R.Ph. - 09/25/2023 10:15 AM CST Clinical Pharmacist Progress Note Jong Harris is a 73 y.o. male admitted on 09/19/2023 who now presents to [id number] forpostoperative care. Procedures (current encounter): 09/19: CABG [...] seble lasix 40 mg BID Neuro: continues SALESPERSON FLORIST SUPPLIES ropinirole. Endo: BG goal < 180, DCS following and has SSI available, has been intermittently hyperglycemic.Advancing diet as tolerated. Recommend starting insulin glargine 5 units daily. MISC: persistent hiccups, trialing PRN baclofen 2.5 mg TID. Would recommend trialing metoclopramide5 mg Q 8 hours (renally adjusted) instead due to less risk of EQUAL OPPORTUNITY SPECIALIST depression Prophylaxis: heparin subQ/warfarin, PPI (home med), +BR Home scheduled meds on hold: cholecalciferol, cyanocobalamin, ferrous sulfate, metformin Pamela eMdina Pharm.D., R.Ph. OR ACTUARIAL ANALYST * Laila Basurto P.A.-C. - 09/24/2023 [...] Glomerular Filtration Rate (GFR) 30 To 44 ([facility]) #6 Hyperlipidemia On Treatment #7 Benign Prostatic Hyperplasia Without Obstruction #8 Atrial Fibrillation Paroxysmal ([facility]) #9 Diabetes Mellitus Type 2 ([facility]) #10 Anemia In Chronic Kidney Disease #11 Hemiplegia Dominant Side Right ([facility]) #12 Hypertension Essential Primary #13 Stroke Cerebrovascular Accident Personal History #14 Anemia Posthemorrhagic Acute (Blood Loss Anemia) #15 Failure Renal Acute (Acute Kidney Injury) ([facility]) #16 Hyperkalemia #17 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 #18 Therapy Care Home Antiplatelet #19 Device Cardiac Status Post #20 [...] of care of this patient with the data processing systems consultant surgeon, Dr. Miller. Anticipated dismissal date: 09/24. Anticipated destination: Home self-care, Home with home health care, or SNF. PT/OT following- patient will not haveavailable assistance at home after his 's surgery next week. SW following for disposition planning- have sent referrals for SNF and [facility], unsure whether he will qualify. Barriers to discharge: Diuresis Medication optimization MANJEET Facility placement Dismissal testing May require homegoing oxygen Medication reconciliation completed. OR ACTUARIAL ANALYST * Lida Woodward P.T., D.P.T. - 09/24/2023 3:28 PM CST 09/24/23 1528 Reason Therapy Missed Reason Therapy Missed At test/procedure Patient away at [facility]CHO.. PT to follow up as able. OR ACTUARIAL ANALYST * Neelam Villalobos O.T., O.T.Petra - 09/24/2023 1:56 PM CST Occupational Therapy Acute Hospital Inpatient Treatment SUBJECTIVE Patient's Name: Jong Emilia Harris Referring/Attending Provider: Sarah Miller M.D. Medical Diagnosis: Stenosis Aortic Valve Acquired [I35.0] Acquired Aortic Valve Disorder [I35.9] Reason for Referral: Occupational Therapy Evaluation and Treatment OT eval and treat cardiac Onset Date: 09/19/23 Payor: [facility] / Plan: AARP MEDICARE ADVANTAGE [place] [...] Discussed patient's care with PT Outcome Measures [facility] Inpatient Short Form: Putting on and [...] Standardized Score: 40.22 Interpretation: Clinicians answer the -[facility] Inpatient Short Form based on [...] housekeeping, Assistance withtransportation, Assistance with patient financial specialist, Assistance with showering/bathing Recommended Adaptive Equipment - [...] (min): 10 min Neelam Villalobos O.T., O.T.Petra OR ACTUARIAL ANALYST * Eze Sevilla R.RMilagros., L.R.T. - 09/24/2023 [...] Cory Sevilla R.R.T., Adonis 09/24/23 1:47 PM SENIOR ACTUARIAL ANALYST OR ACTUARIAL ANALYST * Pamela Medina Pharm.D., R.Ph. - 09/24/2023 10:27 AM [...] the hospital. Pamela Medina Pharm.D., R.Ph. Contact [phone] with any questions about this note. OR ACTUARIAL ANALYST * Pamela Medina Pharm.D., R.Ph. - 09/24/2023 10:19 AM CST Clinical Pharmacist Progress Note Jong Harris is a 73 y.o. male admitted on 09/19/2023 who now presents to [id number]-P forpostoperative care. Procedures (current encounter): 09/19: CABG [...] inaccurate UOP d/t undocumented voids Neuro: continues SALESPERSON FLORIST SUPPLIES ropinirole. Endo: BG have been < 180, DCS following and has SSI available. Prophylaxis: heparin subQ/warfarin, PPI (home med) Home scheduled meds on hold: cholecalciferol, cyanocobalamin, ferrous sulfate, metformin Pamela Medina, Pharm.D., R.Ph. OR ACTUARIAL ANALYST * Eloisa Oro M.S.N., M.H.A., R.N., [facility] - 09/24/2023 10:19 AM SENIOR ACTUARIAL ANALYST SUBJECTIVE toy parts former supervisor Eloisa met with Mr and Mrs Harris to discuss the need for residential rehab at discharge. A list of insurance approved facilities was given. The below referrals have been sent. OBJECTIVE To obtain referrals for residential facilities at discharge. ASSESSMENT / PLAN Service Provider Request Status Selected Services Address Phone Fax Patient Preferred [facility] Pending - Request Sent N/A [address] [facility] [phone] -- [facility] Pending - Request Sent N/A [address] [facility] [phone] -- [facility] Pending - Request Sent N/A [address], [place] [address] [phone] -- [facility] Declined [facility] is CLOSED N/A [address] [facility] [place] [place] [phone] -- Current Capacity last updated by [place] on 08/15/[address] [facility] has issued notice of closure. We cannot accept any new admissions. We will be having a short-term, private pay option in assisted living for clients who need PT/OT/ST (will be billed to their insurance). Referrals for this area need to go to [facility]. This area will open 10/12/2023 [facility] Declined Facility cannot provide for patient's needs N/A [address] [facility] [phone] -- -- Damon Kraus, M.H.A., R.N., GRISEL 09/24/2023 OR ACTUARIAL ANALYST * Laila Basurto P.A.-C. - 09/23/2023 4:38 PM CST SUBJECTIVE Jogn Harris is a 73 y.o. male admitted [...] Glomerular Filtration Rate (GFR) 30 To 44 ([facility]) #6 Hyperlipidemia On Treatment #7 Benign Prostatic Hyperplasia Without Obstruction #8 Atrial Fibrillation Paroxysmal ([facility]) #9 Diabetes Mellitus Type 2 ([facility]) #10 Anemia In Chronic Kidney Disease #11 Hemiplegia Dominant Side Right ([facility]) #12 Hypertension Essential Primary #13 Stroke Cerebrovascular Accident Personal History #14 Anemia Posthemorrhagic Acute (Blood Loss Anemia) #15 Failure Renal Acute (Acute Kidney Injury) ([facility]) #16 Hyperkalemia #17 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 #18 Therapy Care Home Antiplatelet #19 Thrombocytopenia Secondary #20 Device Cardiac [...] of care of this patient with the data processing systems consultant surgeon, Dr. Miller. Anticipated dismissal date: 09/23-09/24. Anticipated destination: Home self-care or SNF. PT/OT following- patient has residual right-sided weakness from his stroke and will not have available assistance at home after his 's surgery next week. SW following for disposition planning. Barriers to discharge: INR Medication optimization MANJEET Dismissal testing May require homegoing oxygen Medication reconciliation completed. OR ACTUARIAL ANALYST * Merle Reyes, Pharm.D., R.Ph. - 09/23/2023 2:17 PM CST Clinical Pharmacist Progress Note Jong Harris is a 73 y.o. male admitted on 09/19/2023 who now presents to [id number] forpostoperative care. Procedures (current encounter): 09/19: CABG [...] Renal: tamsulosin and finasteride resumed Neuro: continues SALESPERSON FLORIST SUPPLIES ropinirole. Endo: BG have been < 180, DCS following and has SSI available. Prophylaxis: heparin subQ/warfarin, PPI (home med) Home scheduled meds on hold: cholecalciferol, cyanocobalamin, ferrous sulfate, metformin Merle Reyes, D., R.Ph. OR ACTUARIAL ANALYST * Marcela Lee APRN, C.N.P., M.S.N. - [...] PRBC this morning for Hgb of 7.3. OR ACTUARIAL ANALYST * Laila Basurto P.A.-C. - 09/22/2023 [...] removal. An actuation system was not present. OR ACTUARIAL ANALYST * Laila Basurto P.A.-C. - 09/22/2023 [...] previous stroke. They are considering SNF vs [facility] for discharge planning. OBJECTIVE I have reviewed [...] & Screen Expiration 09/25/2023 23:59 Testing Location [place] CBC without Differential Collection Time: 09/22/23 7:04 [...] Glomerular Filtration Rate (GFR) 30 To 44 ([facility]) #3 Hyperlipidemia On Treatment #4 Benign Prostatic Hyperplasia Without Obstruction #5 Atrial Fibrillation Paroxysmal ([facility]) #6 Diabetes Mellitus Type 2 ([facility]) #7 Anemia In Chronic Kidney Disease #8 Hypertension Essential Primary #9 Stroke Cerebrovascular Accident Personal History #10 Coronary Arterial Bypass Graft Status Post Personal History #11 Prosthesis Aortic Valve #12 Coronary Artery Disease Without Angina Pectoris #13 Anemia Posthemorrhagic Acute (Blood Loss Anemia) #14 Failure Renal Acute (Acute Kidney Injury) ([facility]) #15 Hyperkalemia #16 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 #17 Therapy Care Home Antiplatelet Neuro: No acute concerns. Pain is [...] No sign of active bleed. Platelets 129 [id number]. ID/Skin: No acute concerns. Post-operative antibiotic regimen complete. Maintain sternal incision wound vac until POD 5. Afebrile, WBC WNL. Will remove RIJ this evening. Continue LEATHA wraps to lower extremities when out of bed. Code Status: Full Code Disposition: Continue to monitor on the PCU. I directly examined/reviewed the plan of care of this patient with the data processing systems consultant surgeon, Dr. Miller. Anticipated dismissal date: 09/23-09/24. Anticipated destination: Pending PT/OT evaluation. PT/OT consulted for discharge planning- patient has residual right- sided weakness from his stroke and will not have available assistance at home after his 's surgery next week. SW following for disposition planning. Barriers to discharge: INR Medication optimization MANJEET Dismissal testing May require homegoing oxygen Medication reconciliation completed. OR ACTUARIAL ANALYST * Purvi Wu Pharm.D., R.Ph. - 09/22/2023 [...] from the hospital. Purvi Wu PharmRomeo, R.Ph. OR ACTUARIAL ANALYST * Dwayne Lew PharmRomeo, R.Ph. - 09/21/2023 10:04 AM SENIOR ACTUARIAL ANALYST Clinical Pharmacist Progress Note Jong Harris is a 73 y.o. male admitted on 09/19/2023 who now presents to [id number]/566-[id number] forpostoperative care. Procedures (current encounter): 09/19: CABG [...] Allen removed. Neuro: pain well controlled, continues SALESPERSON FLORIST SUPPLIES ropinirole. Endo: BG have been < 180, DCS following and has SSI available. Prophylaxis: heparin subQ, PPI (home med) Home scheduled meds on hold: cholecalciferol, cyanocobalamin, ferrous sulfate, metformin Matthias Lew, PharmJarrettDJarrett, R.Ph. OR ACTUARIAL ANALYST * Enmanuel Edward P.A.-C. - 09/21/2023 [...] Glomerular Filtration Rate (GFR) 30 To 44 ([facility]) #5 Hyperlipidemia On Treatment #6 Benign Prostatic Hyperplasia Without Obstruction #7 Atrial Fibrillation Paroxysmal ([facility]) #8 Diabetes Mellitus Type 2 ([facility]) #9 Anemia In Chronic Kidney Disease #10 Hypertension Essential Primary #11 Stroke Cerebrovascular Accident Personal History #12 Coronary Artery Disease Without Angina Pectoris #13 Anemia Posthemorrhagic Acute (Blood Loss Anemia) #14 Failure Renal Acute (Acute Kidney Injury) ([facility]) #15 Hyperkalemia #16 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 Neuro: Sleep: [...] care of this patient with the critical intensive care medicine specialist. Anticipated dismissal date: TBD. Anticipated destination: Home [...] risk. Continue to follow PROTECT algorithm protocol. OR ACTUARIAL ANALYST * Kari Hook MDIV - 09/20/2023 1:58 PM CST [facility] Spiritual [facility] Progress Note Patient: Jong Harris Age:73 y.o. Location: [id number] Reason(s) for encounter: Spiritual Care contact to [...] to verbally process surfacing emotions. Spiritual Assessment [facility]aritan Identification / Spiritual Practices: [employer] He attempted to find the name of his advent but could not remember. Coping and support: His and son had left before our visit. He attempted to use avoidance, changing the topic, and humor to cope with tough questions and good drug counselor. Patient named his avoidant coping skills [...] current medical condition and life stage. Provided orthodox reading material to sustain patient's truman/practice while in hospital Facilitated orthodox/spiritual practices (prayer, blessing, sacred texts, orthodox item) with theaim to reinforce patient's spiritual [...] requested. Chaplains can be contacted by paging [phone] ([place]) or [phone] ([place]). OR ACTUARIAL ANALYST * Dwayne Lew, Pharm.D., R.Ph. - 09/20/2023 10:02 AM SENIOR ACTUARIAL ANALYST Clinical Pharmacist Progress Note Jong Harris is a 73 y.o. male admitted on 09/19/2023 who now presents to [id number]-P forpostoperative care. Procedures (current encounter): 09/19: CABG [...] ferrous sulfate, metformin Matthias Zahraaowenko, Pharm.D., R.Ph. OR ACTUARIAL ANALYST * Bryce Wills M.D. - 09/20/2023 [...] type 2, was on metformin at home (AcL0m=7.2) Heme: extensive bleeding in OR, required plt, cryo and Kcentra, normal coagulation parameters now, will follow up on labs and watch for chest tube output Will proceed with anticoagulation per cardiac surgery team recommendations ID: continue perioperative antibiotics PPx: pantoprazole prophylaxis T/L/D: RIJ/PA catheter, 3 tubes, Tiffany Wills ICU Fellow [id number] OR ACTUARIAL ANALYST Associated attestation - Reji Kang M.D. - 09/20/2023 5:43 PM SENIOR ACTUARIAL ANALYST I saw and evaluated the patient, [...] Present Illness: The patient is located in [facility], room 730. I have seen and evaluated [...] Epicardial wires were/were not placed with a alutiiq rhythm of SR. Ultimately, due to persistent [...] Full Code Critical care time: 45 min OR ACTUARIAL ANALYST * Yuriy Wilson R.R.T., L.R.T. - 09/19/2023 5:18 PM CST 1710: Pt. Arrived from OR intubated w/ 8.0 ett , secured at 22cm @ lip with twill tie. Pt. Placed on ASV 100%, peep 8, fio2 50%. Will adjust settings and wean as appropriate based on patients condtion. OR ACTUARIAL ANALYST * Garrett Bahena PharmJarrettD., R.Ph. - [...] 130/80 CKD 3b Garrett Bahena Pharm.D., R.Ph. OR ACTUARIAL ANALYST documented in this encounter H&P Notes * Jenny Stanford M.B., B.Ch., B.A.O. - 09/19/2023 6:36 AM CST INTERVAL HISTORY AND PHYSICAL PRE-PROCEDURE UPDATE H&P reviewed. The patient was examined and there are no significant changes to the H&P. Misty Howe, B.Ch., B.A.O. OR ACTUARIAL ANALYST Source Note - Elvi Lundberg MPAS, P.A.-C. - 09/18/2023 9:45 AM SENIOR ACTUARIAL ANALYST Jong Harris : 1950 Visit Date: 09/18/23 REFERRING PHYSICIAN: No ref. provider found Home plasterer spray gun: [facility] primary care provider: Dr. Adam Cotto [place], [place] SUBJECTIVE CHIEF COMPLAINT / REASON FOR [...] 08/19/2023 for additional information. Patient presented to [facility] for chest discomfort on 08/19/2023. Patient [...] CORONARY ANGIOGRAPHY; Surgeon: Ezequiel Jack M.D.; Location: [facility] Family History Problem Relation Age of [...] Glomerular Filtration Rate (GFR) 30 To 44 ([facility]) #3 Hypertension Essential Primary #4 Atrial Fibrillation Paroxysmal ([facility]) #5 Hemiplegia Dominant Side Right ([facility]) #6 Anemia In Chronic Kidney Disease #7 Benign Prostatic Hyperplasia Without Obstruction #8 Diabetes Mellitus Type 2 ([facility]) #9 Hyperlipidemia On Treatment #10 Stroke [...] 2 For postoperative care: Consult social work program coordinator on the inpatient setting, patient's is having [...] 3596) pamphlet; Your guide to Cardiac Surgery [id number]; Surgical Site Infection: Reducing Your Risk (MC 6471); Central Venous Catheter Infection: Reducing Your Risk (HL3405). Patient instructed to report to [facility] for Bactroban prescription. Application instructions [...] of the patient today. Time includes both dhi-dwtl-rg-face [id number]-vt-smtp patient care. MADHAV Chong, P.A.-C. OR ACTUARIAL ANALYST documented in this encounter Consult Notes [...] T2DM, RLS Patient was not available at communications writer's attempts to visit today. Per EMR, [...] on 09/26/23. Estimated Needs: Total Calorie Needs: 4067-5910 calories/day Method to Estimate Energy Needs: [place] ( basal to basal + 10% [...] about patient's nutritional care please contact pager [phone] on weekdays 07:30-16:00 or [phone] on weekends/holidays. * AbdulazizGinette De La Vega [...] the cardiac rehab program. Patient referred to: [facility] [address] [place] [address] Recommend that the patient check with insurance company to verify coverage of the cost of cardiac rehabilitation program visits. OR ACTUARIAL ANALYST * Eloisa Oro M.S.Danny., M.H.A., R.N., [facility] - 09/24/2023 8:48 AM SENIOR ACTUARIAL ANALYST Associated Order(s): IP CONSULT TO CARE MANAGEMENT; IP CONSULT TO CARE MANAGEMENT Discharge Planning Assessment SUBJECTIVE Assessment Information Referral Source: Nurse Referral Name: Liliana Galindo R.N. Referral Reason: Discharge Planning Primary Language: Serbian Digital Strategist Senior Manager Services Used: Yes Person(s) present during interview: [...] (HCC) #16 Hyperkalemia #17 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 #18 Therapy Pipe Washer Antiplatelet #19 Thrombocytopenia Secondary #20 Device Cardiac Status Post Social History Marital Status: Lissy Finance/Insurance Primary insurance: [facility] MEDICARE ADVANTAGE [facility] Secondary insurance: N/A Does the patient have any financial concerns? no benefits: No Advance Directives Legal Decision Maker: Self Advance Directives Status: Not completed OBJECTIVE Baseline Functional Status Baseline Activities of Daily Living Mobility: Independent Dressing: Independent Feeding: Independent Bathing: Independent Grooming: Independent Toileting: Independent Behavior: Appropriate, Pleasant, Calm, Cooperative, Oriented Communication: Can write, Talks, Understands speaking, Understands Serbian, Reads Shopping: Independent Transportation: Independent to drive [...] Fanny or Lissy Phone Number for Ride/Caregiver: [phone] Anticipated Discharge Destination: Jail Facility ASSESSMENT / PLAN Assessment: The toy parts former supervisor met with Jong Harris to discuss his current hospitalization and home going needs. The patient was unaccompanied. The patient was a reliable historian. The role of toy parts former supervisor was reviewed. The patient reviewed his prior level of care and support system. The patient receives support from his , daughter, and son. Mr. Steven lives in a 1st floor apartment with his Lissy. The patients will need knee surgery in 4 days and they have requested the patient go to a residential facility for PT/OT rehab if possible, referrals [...] responsibilities have previously been completed by patient. toy parts former supervisor discussed the patient's potential needs at dismissal [...] following new service(s) to be set up: residential facility. After reviewing the patient's chart and meeting with the patient, the toy parts former supervisor deemed the LACE+/readmission questions were not necessary. The patient reports understanding that he will dismiss from the hospital when medically stable. Pending hospital course and medical readiness, no barriers to dismissal have been identified at this time. Plan: The patient agrees with the following plan. Patient's anticipated discharge disposition is: Jail Facility Planning needs to be initiated. Transportation upon dismissal will be provided by family--Son or daughter . toy parts former supervisor recommended reaching out to family, friends, and neighbors for assistance. toy parts former supervisor provided information regarding the dismissal process. toy parts former supervisor placed or requested the following hospital-based consult orders and/or referrals: None. toy parts former supervisor will continue to assess for homegoing needs with the interdisciplinary team. toy parts former supervisor encouraged the patient to reach out with any questions/concerns. Care Management will continue to follow. Signed by: Damon Kraus, M.H.A., R.N., [facility] 09/24/2023 OR ACTUARIAL ANALYST * Neelam Villalobos O.T., O.T.D. - 09/23/2023 10:14 AM CST Occupational Therapy Acute Hospital Inpatient Evaluation/Treatment SUBJECTIVE Patient's Name: Jong Harris Referring/Attending Provider: Sarah Miller M.D. 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 Prior Mobility/Functional Transfers Level of Hill[place]: Independent Home Living Type of Home: Apartment Home Access: Stairs to enter with rails Entrance Stairs: Rails: Left Entrance Stairs: Number of Steps: 6 Bathroom Shower/Tub: Tub/shower unit Tub/shower unit location: Main floor Bathroom Toilet: Standard Home Living Comments: would have to side shuffle with a walker Home Equipment Home Adaptive Equipment: Filtration Operator Other DME Equipment : (flat bed) Bathroom Equipment: Grab bars in shower, Tub transfer bench Family/Caregiver Present: Yes (son) Patient/Caregiver Goals: None stated Patient Comments: Patient presented on toilet, having just completed mobility in hallway and to bathroom with pmo manager. Patient with no complaints of pain, and [...] Handouts provided today: Recovery From Heart Surgery [id number] Team Communication: Patient's nurse was contacted and patient's status was discussed, Discussed patient's care with PT Co-treatment with: Physical Therapy (Co-treatment session with PT, The patient benefited from having two skilled therapists present to progress mobility safely. OT addressed functional mobility as itrelates to completing activities of daily living.) Outcome Measures -[facility] Inpatient Short Form: Putting on [...] Standardized Score: 40.22 Interpretation: Clinicians answer the -[facility] Inpatient Short Form based on [...] housekeeping, Assistance withtransportation, Assistance with patient financial specialist, Assistance with showering/bathing Recommended Adaptive Equipment - [...] (min): 28 min Neelam Villalobos O.T., O.TRomeo OR ACTUARIAL ANALYST * Ximena Green P.T., D.P.T. - 09/23/2023 10:14 AM CST Physical Therapy Inpatient Evaluation/Treatment SUBJECTIVE Patient's Name: Jong Emilia Harris Referring/Attending Provider: Sarah Miller M.D. Medical Diagnosis: Stenosis Aortic Valve Acquired [I35.0] Acquired Aortic Valve Disorder [I35.9] Reason for Referral: PT Evaluate and Treat PT eval and treat cardiac Onset Date: 09/19/23 Payor: [facility] / Plan: [employer] MEDICARE ADVANTAGE [place] [...] (Acute Kidney Injury) (HCC) Hyperkalemia 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 Therapy Pipe Washer Antiplatelet Thrombocytopenia Secondary Past Surgical History: Procedure [...] ENLARGEMENT. 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 Outcome Measures [facility] Inpatient Short Form: AM-PAC Basic Mobility (V.2) [...] 3-5 steps with a railing?: A Little -[facility] Basic Mobility (V.2) Raw Score: 18 AM-[facility] Basic Mobility (V.2) Standardized Score: 41.05 Interpretation: Clinicians answer the -[facility] Inpatient Short Form based on [...] (min): 26 min Ximena Green P.T., D.P.TJarrett OR ACTUARIAL ANALYST * Vipul Garcia P.A.-C. - 09/21/2023 [...] primary service with questions regarding blood sugars. OR ACTUARIAL ANALYST documented in this encounter Nursing Notes * Valorie Osman R.N. - 09/26/2023 2:15 PM CST Patient discharging home to self care. retirement placement canceled per patients request. Education complete. All medications and future appointments reviewed with patient. All questions answered.Vital signs stable. IVs removed. Patient transported by home. Electronically signed by: Valorie Osman R.N. 09/26/23 3:50 PM SENIOR ACTUARIAL ANALYST OR ACTUARIAL ANALYST * Ar Mills R.N. - 09/26/2023 [...] by: Ar Mills R.N. 09/26/23 5:19 AM SENIOR ACTUARIAL ANALYST OR ACTUARIAL ANALYST * Kelsey Downing R.N. - 09/25/2023 5:46 PM CST Shift Goals: Clinical Goals for the Shift: Dismissal planning Identify possible barriers to meeting goals/advancing plan of care: None End of Shift Summary: Dismissal education progressing well. Plan is to dismiss to SNF on Sunday. Denies questions at this time. OR ACTUARIAL ANALYST * Ar Mills R.N. - 09/25/2023 [...] by: Ar Mills R.N. 09/25/23 5:39 AM SENIOR ACTUARIAL ANALYST OR ACTUARIAL ANALYST * Amita Mercado R.N. - 09/24/2023 [...] Goal: Maintain a safe environment Outcome: Progressing OR ACTUARIAL ANALYST * Radha Lara R.N. - 09/23/2023 5:20 PM CST Shift Goals: Clinical Goals for the Shift: Education and ambulation Identify possible barriers to meeting goals/advancing plan of care: Tiredness End of Shift Summary: Patient ambulated to the bathroom multiple times throughout the day. He was able to ambulate in the ady three times with encouragement. The patient required a rest long-term through the walk. Education was started while the was present. .Electronically signed by: Radha Lara R.N. 09/23/23 5:23 PM SENIOR ACTUARIAL ANALYST Problem: KNOWLEDGE DEFICIT Goal: Patient/family/caregiver demonstrates understanding of disease process, treatment plan, medications, and discharge instructions Outcome: Progressing Problem: SKIN/TISSUE INTEGRITY Goal: Skin/Tissue integrity maintained or improved Outcome: Progressing Problem: DISCHARGE PLANNING Goal: Patient discharge needs identified Outcome: Progressing OR ACTUARIAL ANALYST * Julienne Harding R.N. - 09/23/2023 [...] for hemodynamic support. Pain control remains adequate. OR ACTUARIAL ANALYST * Julienne Harding R.N. - 09/22/2023 [...] bed. Neuro status intact at this time. OR ACTUARIAL ANALYST * Elieser Fong - 09/22/2023 6:26 [...] Recent CPT: Elieser Fong 09/22/23 6:27 PM SENIOR ACTUARIAL ANALYST Under the direction of Felipe ParadaRBryanna, L.R.T. OR ACTUARIAL ANALYST * Vipin Catalan R.RBryanna, L.R.T. - 09/21/2023 2:24 AM CST Patient is a 73 y.o. male admitted on 09/19/2023 Alert Information: Plan of Care: Assess respiratory needs Principal Problem Stenosis Aortic Valve Acquired Oxygen Therapy $Delivery Method: Nasal cannula Arterial Line 09/19/23 Left Radial (Active) Placement Date/Time: 09/19/23 (c) 4310 Procedural Pause Completed: Yes Catheter Time Out [...] L PCO2 ART 43 PH ART 7.37 OR ACTUARIAL ANALYST * Kev Duke R.R.T., L.R.T. - 09/20/2023 [...] Left Radial (Active) Placement Date/Time: 09/19/23 (c) 8228 Procedural Pause Completed: Yes Catheter Time Out [...] PH ART 7.37 Skin integrity checked: intact. OR ACTUARIAL ANALYST * Yuriy Wilson R.RBryanna, L.R.T. - 09/19/2023 [...] Standard ETT (Active) Placement Date/Time: 09/19/23 (c) 6296 Mask Ventilation: Oral/Nasal airway needed Technique: Directlaryngoscopy, intubation ETT Type: Standard ETT Tube Size: 8 mm Cuffed: Yes Blade Size: Ospina 2 Location: Oral Airway secured at (Initial grover... Arterial Line 09/19/23 Left Radial (Active) Placement Date/Time: 09/19/23 (c) 4416 Procedural Pause Completed: Yes Catheter Time Out [...] PH ART 7.37 Skin integrity checked: good OR ACTUARIAL ANALYST documented in this encounter OR Notes [...] overweight. Post-op Diagnosis Same as preop A dental ceramist assistant actively participated and was necessary for [...] non pledgetted Prolene suture and a 20 Iranian DLP arterial cannula. The right atrium was [...] at a pressure 100 mm Hg a [id number] mL/minute was obtained. We re-dosed the cardioplegia [...] in stable conditions. Sarah Miller M.D., M.P.H. OR ACTUARIAL ANALYST * Brief Op Note - Jenny Stanford M.B., B.Ch., B.A.O. - 09/19/2023 8:59 AM CST BRIEF OP NOTE Procedure(s): REPLACEMENT AORTIC VALVE, POSSIBLE AORTIC ROOT ENLARGEMENT. (On-X Conform 23mm Valve) CORONARY ARTERY BYPASS GRAFT X1, VEIN. LIGATION LEFT ATRIAL APPENDAGE. ISOLATION PULMONARY VEIN. ECHOCARDIOGRAM TRANSESOPHAGEAL Surgeon(s) and Role: * Sarah Miller M.D., M.P.H. - Primary * Jenny Stanford M.B., B.Ch., B.A.O. - Spindle Setter Anesthesia Type General Pre-operative Diagnosis Stenosis Aortic [...] Implants Implant Name LRB Site No. Used Marketing Technology Coordinator Mfr No. Serial No. Status Type CLP HRZN TI 6 CLP KIKA - [id number] N/A Chest 1 Teleflex StarCite, Part of Active Network [id number] Implanted Hardware e.g. pins/screws/rods CLP HRZN TI 24 CLP SM RED - [id number] N/A Chest 1 Teleflex StarCite, Part of Active Network [id number] Implanted Hardware e.g. pins/screws/rods CLP HRZN TI 24 CLP SM RED - [id number] N/A Chest 1 Teleflex StarCite, Part of Active Network [id number] Implanted Hardware e.g. pins/screws/rods FELT SURG TFLN 1X6 - [id number] N/A Chest 1 ARTENCY.COM [id number] Implanted Hardware e.g. pins/screws/rods CLP HRZN TI 24 CLP KIKA - [id number] N/A Chest 1 Teleflex StarCite, Part of Active Network 000041 Implanted Hardware e.g. pins/screws/rods VLV AORT CNF [facility] 23 - [id number] - [id number] N/A Aortic Valve 1 Artivion (Prev. CryoLife) [id number] Implanted Cardiac Valve Prosthesis Patient Condition:ICU: Stable Misty Howe, Lucille, B.A.O. OR ACTUARIAL ANALYST documented in this encounter Miscellaneous Notes * Hospital Course - Ginette Greene P.A.-C., M.S. - 09/20/2023 1:59 AM SENIOR ACTUARIAL ANALYST Jong Harris is a 73 y.o. [...] M.P.H. Primary Jenny Stanford M.B., B.Ch., B.A.O. Spindle Setter Dismissal Vitals: Admission Weight: 85.8 kg Blood [...] to the increased Doppler velocities (8.3 g/dL). OR ACTUARIAL ANALYST documented in this encounter Plan of Treatment Upcoming Encounters Date Type Department Care Team (Latest Contact Info) Description 12/21/2023 10:15 AM SENIOR ACTUARIAL ANALYST Clinical Communication Virtual Review in [place], [place] [address] [place] [address] 12/24/2023 2:00 PM SENIOR ACTUARIAL ANALYST Comprehensive Visit Department of Cardiovascular Medicine in [place], [place] [address] [place] [phone] Gudelia Soto M.D. [address] [place] [phone] 01/01/2024 3:45 PM SENIOR ACTUARIAL ANALYST Comprehensive Visit Division of Hematology in [place], [place] [address] [place] [phone] Billy Segal APRN, C.N.P., D.N.P. [address] [place] [phone] Pending Results Name Type Priority Associated Diagnoses Date /Time Prepare Red Blood Cells, 2 Units Blood Bank STAT 09/18/2023 9:04 AM SENIOR ACTUARIAL ANALYST Prepare Platelets : 1 Units Blood Bank STAT 09/20/2023 2:30 AM SENIOR ACTUARIAL ANALYST Prepare Red Blood Cells, 2 Units Blood Bank STAT 09/18/2023 9:04 AM SENIOR ACTUARIAL ANALYST Prepare Fresh Frozen Plasma : 1 Units Blood Bank STAT 09/20/2023 2:30 AM SENIOR ACTUARIAL ANALYST Prepare Platelets : 1 Units Blood Bank STAT 09/20/2023 2:30 AM SENIOR ACTUARIAL ANALYST Prepare Pooled Cryoprecipitate : 2 Pools Blood Bank STAT 2022 4:30 AM SENIOR ACTUARIAL ANALYST Prepare Red Blood Cells, 2 Units Blood Bank STAT 09/18/2023 9:04 AM SENIOR ACTUARIAL ANALYST Prepare Platelets : 1 Units Blood Bank STAT 09/20/2023 6:30 AM SENIOR ACTUARIAL ANALYST Scheduled Referrals Name Type Priority Associated Diagnoses Orde r Schedule External referral cardiac rehab program (non-[place]) Outpatient Referral Routine Prosthesis Aortic Valve Bypass Coronary Artery Graft Status Post Ordered: 09/24/2023 documented as of this encounter Procedures Procedure Name Priority Date/Time Associated Diagnosis Comments GLUCOSE POCT, B Routine 09/26/2023 11:37 AM SENIOR ACTUARIAL ANALYST GLUCOSE POCT, B Routine 09/26/2023 7:55 AM SENIOR ACTUARIAL ANALYST PROTHROMBIN TIME (PT), P Routine 09/26/2023 6:58 AM SENIOR ACTUARIAL ANALYST CBC WITHOUT DIFFERENTIAL, B Routine 09/26/2023 6:58 AM SENIOR ACTUARIAL ANALYST BASIC METABOLIC PANEL, S/P Routine 09/26/2023 6:58 AM SENIOR ACTUARIAL ANALYST GLUCOSE POCT, B Routine 09/25/2023 8:25 PM SENIOR ACTUARIAL ANALYST GLUCOSE POCT, B Routine 09/25/2023 5:36 PM SENIOR ACTUARIAL ANALYST GLUCOSE POCT, B Routine 09/25/2023 1:13 PM SENIOR ACTUARIAL ANALYST PROTHROMBIN TIME (PT), P Routine 09/25/2023 9:26 AM SENIOR ACTUARIAL ANALYST CBC WITHOUT DIFFERENTIAL, B Routine 09/25/2023 9:26 AM SENIOR ACTUARIAL ANALYST BASIC METABOLIC PANEL, S/P Routine 09/25/2023 9:26 AM SENIOR ACTUARIAL ANALYST GLUCOSE POCT, B Routine 09/25/2023 8:10 AM SENIOR ACTUARIAL ANALYST DX CHEST AP OR PA AND LATERAL 2 VIEWS RAD - Routine (most inpatients and all outpatients) 09/25/2023 7:26 AM SENIOR ACTUARIAL ANALYST ECG Routine 09/25/2023 4:55 AM SENIOR ACTUARIAL ANALYST GLUCOSE POCT, B Routine 09/24/2023 8:33 PM SENIOR ACTUARIAL ANALYST GLUCOSE POCT, B Routine 09/24/2023 4:44 PM SENIOR ACTUARIAL ANALYST NOCTURNAL OXYGEN STUDY - RT Routine 09/24/2023 3:46 PM SENIOR ACTUARIAL ANALYST (TTE) 2D ECHO DOPPLER COLOR Routine 09/24/2023 3:26 PM SENIOR ACTUARIAL ANALYST GLUCOSE POCT, B Routine 09/24/2023 12:43 PM SENIOR ACTUARIAL ANALYST RT TO ARRANGE FOR HOME DME Routine 09/24/2023 11:14 AM SENIOR ACTUARIAL ANALYST GLUCOSE POCT, B Routine 09/24/2023 7:19 AM SENIOR ACTUARIAL ANALYST PROTHROMBIN TIME (PT), P Routine 09/24/2023 6:49 AM SENIOR ACTUARIAL ANALYST CBC WITHOUT DIFFERENTIAL, B Routine 09/24/2023 6:49 AM SENIOR ACTUARIAL ANALYST BASIC METABOLIC PANEL, S/P Routine 09/24/2023 6:49 AM SENIOR ACTUARIAL ANALYST GLUCOSE POCT, B Routine 09/23/2023 9:38 PM SENIOR ACTUARIAL ANALYST GLUCOSE POCT, B Routine 09/23/2023 5:02 PM SENIOR ACTUARIAL ANALYST PROTHROMBIN TIME (PT), P STAT 09/23/2023 3:44 PM SENIOR ACTUARIAL ANALYST HEMOGLOBIN, B STAT 09/23/2023 3:44 PM SENIOR ACTUARIAL ANALYST BASIC METABOLIC PANEL, S/P STAT 09/23/2023 3:44 PM SENIOR ACTUARIAL ANALYST GLUCOSE POCT, B Routine 09/23/2023 12:19 PM SENIOR ACTUARIAL ANALYST DX CHEST AP OR PA AND LATERAL 2 VIEWS RAD - Routine (most inpatients and all outpatients) 09/23/2023 8:44 AM SENIOR ACTUARIAL ANALYST PROTHROMBIN TIME (PT), P Routine 09/23/2023 7:34 AM SENIOR ACTUARIAL ANALYST CBC WITHOUT DIFFERENTIAL, B Routine 09/23/2023 7:34 AM SENIOR ACTUARIAL ANALYST BASIC METABOLIC PANEL, S/P Routine 09/23/2023 7:34 AM SENIOR ACTUARIAL ANALYST HEPATIC FUNCTION PANEL, S Routine 09/23/2023 7:31 AM SENIOR ACTUARIAL ANALYST GLUCOSE POCT, B Routine 09/23/2023 7:24 AM SENIOR ACTUARIAL ANALYST CBC WITHOUT DIFFERENTIAL, B STAT 09/22/2023 11:14 PM SENIOR ACTUARIAL ANALYST BASIC METABOLIC PANEL, S/P STAT 09/22/2023 11:14 PM SENIOR ACTUARIAL ANALYST GLUCOSE POCT, B Routine 09/22/2023 9:29 PM SENIOR ACTUARIAL ANALYST RESPIRATORY ASSESS AND TREAT Routine 09/22/2023 2:00 PM SENIOR ACTUARIAL ANALYST TRANSFUSE RED BLOOD CELLS Routine 09/22/2023 2:00 PM SENIOR ACTUARIAL ANALYST GLUCOSE POCT, B Routine 09/22/2023 11:27 AM SENIOR ACTUARIAL ANALYST GLUCOSE POCT, B Routine 09/22/2023 7:34 AM SENIOR ACTUARIAL ANALYST PROTHROMBIN TIME (PT), P Routine 09/22/2023 7:04 AM SENIOR ACTUARIAL ANALYST CBC WITHOUT DIFFERENTIAL, B Routine 09/22/2023 7:04 AM SENIOR ACTUARIAL ANALYST BASIC METABOLIC PANEL, S/P Routine 09/22/2023 7:04 AM SENIOR ACTUARIAL ANALYST TYPE AND SCREEN Routine 09/22/2023 7:01 AM SENIOR ACTUARIAL ANALYST GLUCOSE POCT, B Routine 09/21/2023 10:52 PM SENIOR ACTUARIAL ANALYST GLUCOSE POCT, B Routine 09/21/2023 7:07 PM SENIOR ACTUARIAL ANALYST RESPIRATORY ASSESS AND TREAT Routine 09/21/2023 2:00 PM SENIOR ACTUARIAL ANALYST GLUCOSE POCT, B Routine 09/21/2023 11:27 AM SENIOR ACTUARIAL ANALYST GLUCOSE POCT, B Routine 09/21/2023 8:50 AM SENIOR ACTUARIAL ANALYST PROTHROMBIN TIME (PT), P STAT 09/21/2023 7:47 AM SENIOR ACTUARIAL ANALYST PATIENT STATUS Timed 09/21/2023 6:35 AM SENIOR ACTUARIAL ANALYST ABG W/COOX Timed 09/21/2023 6:35 AM SENIOR ACTUARIAL ANALYST GLUCOSE POCT, B Routine 09/21/2023 6:31 AM SENIOR ACTUARIAL ANALYST CBC WITHOUT DIFFERENTIAL, B Timed 09/21/2023 5:11 AM SENIOR ACTUARIAL ANALYST PHOSPHORUS (INORGANIC), S Timed 09/21/2023 5:11 AM SENIOR ACTUARIAL ANALYST MAGNESIUM, S Timed 09/21/2023 5:11 AM SENIOR ACTUARIAL ANALYST BASIC METABOLIC PANEL, S/P Timed 09/21/2023 5:11 AM SENIOR ACTUARIAL ANALYST BASIC METABOLIC PANEL, S/P Timed 09/21/2023 12:21 AM SENIOR ACTUARIAL ANALYST GLUCOSE POCT, B Routine 09/20/2023 8:33 PM SENIOR ACTUARIAL ANALYST POTASSIUM, S/P Timed 09/20/2023 8:33 PM SENIOR ACTUARIAL ANALYST GLUCOSE POCT, B Routine 09/20/2023 4:31 PM SENIOR ACTUARIAL ANALYST BASIC METABOLIC PANEL, S/P STAT 09/20/2023 4:27 PM SENIOR ACTUARIAL ANALYST RESPIRATORY ASSESS AND TREAT Routine 09/20/2023 2:00 PM SENIOR ACTUARIAL ANALYST GLUCOSE POCT, B Routine 09/20/2023 11:51 AM SENIOR ACTUARIAL ANALYST BASIC METABOLIC PANEL, S/P STAT 09/20/2023 11:51 AM SENIOR ACTUARIAL ANALYST GLUCOSE POCT, B Routine 09/20/2023 6:30 AM SENIOR ACTUARIAL ANALYST PREPARE PLATELETS STAT 09/20/2023 6:3 0 AM SENIOR ACTUARIAL ANALYST PREPARE CRYOPRECIPITATE STAT 09/20/2023 4:30 AM SENIOR ACTUARIAL ANALYST LACTATE, B Timed 09/20/2023 4:11 AM SENIOR ACTUARIAL ANALYST PATIENT STATUS Timed 09/20/2023 4:11 AM SENIOR ACTUARIAL ANALYST ABG W/O COOX Timed 09/20/2023 4:11 AM SENIOR ACTUARIAL ANALYST ACTIVATED PARTIAL THROMBOPLASTIN TIME (APTT), P Timed 09/20/2023 4:09 AM SENIOR ACTUARIAL ANALYST PROTHROMBIN TIME (PT), P Timed 09/20/2023 4:09 AM SENIOR ACTUARIAL ANALYST CBC WITHOUT DIFFERENTIAL, B Timed 09/20/2023 4:09 AM SENIOR ACTUARIAL ANALYST MAGNESIUM, S Timed 09/20/2023 4:09 AM SENIOR ACTUARIAL ANALYST BASIC METABOLIC PANEL, S/P Timed 09/20/2023 4:09 AM SENIOR ACTUARIAL ANALYST DX CHEST PORTABLE WITH AM ROUNDS 1 VIEW RAD - Routine (most inpatients and all outpatients) 09/20/2023 3:33 AM SENIOR ACTUARIAL ANALYST TIMP2/IGFBP7 MANJEET RISK SCORE, U Routine 09/20/2023 3:24 AM SENIOR ACTUARIAL ANALYST PREPARE PLATELETS STAT 09/20/2023 2:3 0 AM SENIOR ACTUARIAL ANALYST PREPARE PLATELETS STAT 09/20/2023 2:3 0 AM SENIOR ACTUARIAL ANALYST PREPARE FRESH FROZEN PLASMA STAT 09/20/2023 2:30 AM SENIOR ACTUARIAL ANALYST GLUCOSE POCT, B Routine 09/20/2023 1:17 AM SENIOR ACTUARIAL ANALYST GLUCOSE POCT, B Routine 09/19/2023 11:58 PM SENIOR ACTUARIAL ANALYST GLUCOSE POCT, B Routine 09/19/2023 11:20 PM SENIOR ACTUARIAL ANALYST LACTATE, B Timed 09/19/2023 10:58 PM SENIOR ACTUARIAL ANALYST RESPIRATORY ASSESS AND TREAT Routine 09/19/2023 10:30 PM SENIOR ACTUARIAL ANALYST GLUCOSE POCT, B Routine 09/19/2023 10:27 PM SENIOR ACTUARIAL ANALYST GLUCOSE POCT, B Routine 09/19/2023 9:24 PM SENIOR ACTUARIAL ANALYST ECG Routine 09/19/2023 8:14 PM SENIOR ACTUARIAL ANALYST GLUCOSE POCT, B Routine 09/19/2023 7:58 PM SENIOR ACTUARIAL ANALYST LACTATE, B Timed 09/19/2023 7:43 PM SENIOR ACTUARIAL ANALYST PATIENT STATUS Timed 09/19/2023 7:43 PM SENIOR ACTUARIAL ANALYST ABG W/COOX Timed 09/19/2023 7:43 PM SENIOR ACTUARIAL ANALYST LACTATE, B/P Timed 09/19/2023 7:43 PM SENIOR ACTUARIAL ANALYST GLUCOSE POCT, B Routine 09/19/2023 6:57 PM SENIOR ACTUARIAL ANALYST GLUCOSE POCT, B Routine 09/19/2023 6:23 PM SENIOR ACTUARIAL ANALYST DX CHEST PORTABLE 1 VIEW 09/19/2023 5:45 PM SENIOR ACTUARIAL ANALYST LACTATE, B STAT 09/19/2023 5:19 PM SENIOR ACTUARIAL ANALYST PATIENT STATUS STAT 09/19/2023 5:19 PM SENIOR ACTUARIAL ANALYST ABG W/COOX STAT 09/19/2023 5:19 PM SENIOR ACTUARIAL ANALYST CYSTATIN C WITH EGFR Timed 09/19/2023 5:19 PM SENIOR ACTUARIAL ANALYST Acquired Aortic Valve Disorder ACTIVATED PARTIAL THROMBOPLASTIN TIME (APTT), P STAT 09/19/2023 5:19 PM SENIOR ACTUARIAL ANALYST PROTHROMBIN TIME (PT), P STAT 09/19/2023 5:19 PM SENIOR ACTUARIAL ANALYST FIBRINOGEN, P STAT 09/19/2023 5:19 PM SENIOR ACTUARIAL ANALYST CBC WITHOUT DIFFERENTIAL, B STAT 09/19/2023 5:19 PM SENIOR ACTUARIAL ANALYST BASIC METABOLIC PANEL, S/P STAT 09/19/2023 5:19 PM SENIOR ACTUARIAL ANALYST AIRWAY CARE Routine 09/19/2023 5:16 PM SENIOR ACTUARIAL ANALYST MECHANICAL VENTILATOR Routine 09/19/2023 5:16 PM SENIOR ACTUARIAL ANALYST RESPIRATORY ASSESS AND TREAT Routine 09/19/2023 5:07 PM SENIOR ACTUARIAL ANALYST TRANSFUSE PLATELETS Routine 09/19/2023 4 :58 PM SENIOR ACTUARIAL ANALYST LACTATE, B STAT 09/19/2023 4:20 PM SENIOR ACTUARIAL ANALYST SODIUM, B STAT 09/19/2023 4:20 PM SENIOR ACTUARIAL ANALYST ABG W/COOX STAT 09/19/2023 4:20 PM SENIOR ACTUARIAL ANALYST POTASSIUM, B STAT 09/19/2023 4:20 PM SENIOR ACTUARIAL ANALYST GLUCOSE, WHOLE BLOOD STAT 09/19/2023 4:20 PM SENIOR ACTUARIAL ANALYST ACTIVATED PARTIAL THROMBOPLASTIN TIME (APTT), P STAT 09/19/2023 4:20 PM SENIOR ACTUARIAL ANALYST PROTHROMBIN TIME (PT), P STAT 09/19/2023 4:20 PM SENIOR ACTUARIAL ANALYST FIBRINOGEN, P STAT 09/19/2023 4:20 PM SENIOR ACTUARIAL ANALYST PLATELETS, B STAT 09/19/2023 4:20 PM SENIOR ACTUARIAL ANALYST CALCIUM, IONIZED, S/B STAT 09/19/2023 4:20 PM SENIOR ACTUARIAL ANALYST TRANSFUSE CRYOPRECIPITATE Routine 09/19/2023 3:53 PM SENIOR ACTUARIAL ANALYST TRANSFUSE CRYOPRECIPITATE Routine 09/19/2023 3:51 PM SENIOR ACTUARIAL ANALYST TRANSFUSE RED BLOOD CELLS Routine 09/19/2023 3:50 PM SENIOR ACTUARIAL ANALYST LACTATE, B STAT 09/19/2023 3:37 PM SENIOR ACTUARIAL ANALYST SODIUM, B STAT 09/19/2023 3:37 PM SENIOR ACTUARIAL ANALYST ABG W/COOX STAT 09/19/2023 3:37 PM SENIOR ACTUARIAL ANALYST THROMBOELASTOGRAPH, KAOLIN + HEPARINASE, B STAT 09/19/2023 3:37 PM SENIOR ACTUARIAL ANALYST POTASSIUM, B STAT 09/19/2023 3:37 PM SENIOR ACTUARIAL ANALYST GLUCOSE, WHOLE BLOOD STAT 09/19/2023 3:37 PM SENIOR ACTUARIAL ANALYST THROMBOELASTOGRAPH, KAOLIN, B STAT 09/19/2023 3:37 PM SENIOR ACTUARIAL ANALYST ACTIVATED PARTIAL THROMBOPLASTIN TIME (APTT), P STAT 09/19/2023 3:37 PM SENIOR ACTUARIAL ANALYST PROTHROMBIN TIME (PT), P STAT 09/19/2023 3:37 PM SENIOR ACTUARIAL ANALYST FIBRINOGEN, P STAT 09/19/2023 3:37 PM SENIOR ACTUARIAL ANALYST PLATELETS, B STAT 09/19/2023 3:37 PM SENIOR ACTUARIAL ANALYST CALCIUM, IONIZED, S/B STAT 09/19/2023 3:37 PM SENIOR ACTUARIAL ANALYST TRANSFUSE RED BLOOD CELLS Routine 09/19/2023 3:23 PM SENIOR ACTUARIAL ANALYST SODIUM, B STAT 09/19/2023 2:46 PM SENIOR ACTUARIAL ANALYST ABG W/COOX STAT 09/19/2023 2:46 PM SENIOR ACTUARIAL ANALYST POTASSIUM, B STAT 09/19/2023 2:46 PM SENIOR ACTUARIAL ANALYST GLUCOSE, WHOLE BLOOD STAT 09/19/2023 2:46 PM SENIOR ACTUARIAL ANALYST ACTIVATED PARTIAL THROMBOPLASTIN TIME (APTT), P STAT 09/19/2023 2:46 PM SENIOR ACTUARIAL ANALYST PROTHROMBIN TIME (PT), P STAT 09/19/2023 2:46 PM SENIOR ACTUARIAL ANALYST FIBRINOGEN, P STAT 09/19/2023 2:46 PM SENIOR ACTUARIAL ANALYST PLATELETS, B STAT 09/19/2023 2:46 PM SENIOR ACTUARIAL ANALYST CALCIUM, IONIZED, S/B STAT 09/19/2023 2:46 PM SENIOR ACTUARIAL ANALYST DX CHEST RETAINED SURGICAL ITEM 1 VIEW RAD - Emergent (Fastest; for the most critically ill patients) 09/19/2023 2:30 PM SENIOR ACTUARIAL ANALYST TRANSFUSE PLATELETS Routine 09/19/2023 2 :15 PM SENIOR ACTUARIAL ANALYST TRANSFUSE RED BLOOD CELLS Routine 09/19/2023 2:00 PM SENIOR ACTUARIAL ANALYST SODIUM, B STAT 09/19/2023 1:40 PM SENIOR ACTUARIAL ANALYST ABG W/COOX STAT 09/19/2023 1:40 PM SENIOR ACTUARIAL ANALYST POTASSIUM, B STAT 09/19/2023 1:40 PM SENIOR ACTUARIAL ANALYST GLUCOSE, WHOLE BLOOD STAT 09/19/2023 1:40 PM SENIOR ACTUARIAL ANALYST ACTIVATED PARTIAL THROMBOPLASTIN TIME (APTT), P STAT 09/19/2023 1:40 PM SENIOR ACTUARIAL ANALYST PROTHROMBIN TIME (PT), P STAT 09/19/2023 1:40 PM SENIOR ACTUARIAL ANALYST FIBRINOGEN, P STAT 09/19/2023 1:40 PM SENIOR ACTUARIAL ANALYST PLATELETS, B STAT 09/19/2023 1:40 PM SENIOR ACTUARIAL ANALYST CALCIUM, IONIZED, S/B STAT 09/19/2023 1:40 PM SENIOR ACTUARIAL ANALYST AUTOLOGOUS RED BLOOD CELLS-CELL SALVAGE Routine 09/19/2023 1:28 PM SENIOR ACTUARIAL ANALYST TRANSFUSE FRESH FROZEN PLASMA Routine 09/19/2023 1:24 PM SENIOR ACTUARIAL ANALYST TRANSFUSE PLATELETS Routine 09/19/2023 1 :09 PM SENIOR ACTUARIAL ANALYST LACTATE, B STAT 09/19/2023 12:45 PM SENIOR ACTUARIAL ANALYST SODIUM, B STAT 09/19/2023 12:45 PM SENIOR ACTUARIAL ANALYST ABG W/COOX STAT 09/19/2023 12:45 PM SENIOR ACTUARIAL ANALYST POTASSIUM, B STAT 09/19/2023 12:45 PM SENIOR ACTUARIAL ANALYST GLUCOSE, WHOLE BLOOD STAT 09/19/2023 12:45 PM SENIOR ACTUARIAL ANALYST CALCIUM, IONIZED, S/B STAT 09/19/2023 12:45 PM SENIOR ACTUARIAL ANALYST ACTIVATED PARTIAL THROMBOPLASTIN TIME (APTT), P STAT 09/19/2023 12:44 PM SENIOR ACTUARIAL ANALYST PROTHROMBIN TIME (PT), P STAT 09/19/2023 12:44 PM SENIOR ACTUARIAL ANALYST FIBRINOGEN, P STAT 09/19/2023 12:44 PM SENIOR ACTUARIAL ANALYST PLATELETS, B STAT 09/19/2023 12:44 PM SENIOR ACTUARIAL ANALYST ACT, POCT, B Routine 09/19/2023 12:42 PM SENIOR ACTUARIAL ANALYST HEMOGLOBIN (HGB), POCT, B Routine 09/19/2023 12:17 PM SENIOR ACTUARIAL ANALYST ACT, POCT, B Routine 09/19/2023 12:01 PM SENIOR ACTUARIAL ANALYST GLUCOSE POCT, B Routine 09/19/2023 12:00 PM SENIOR ACTUARIAL ANALYST SURGICAL PATHOLOGY, [facility] Routine 09/19/2023 11:34 AM SENIOR ACTUARIAL ANALYST Stenosis Aortic Valve Acquired AUTOLOGOUS RED BLOOD CELLS-CELL SALVAGE Routine 09/19/2023 11:33 AM SENIOR ACTUARIAL ANALYST ACT, POCT, B Routine 09/19/2023 11:28 AM SENIOR ACTUARIAL ANALYST ACT, POCT, B Routine 09/19/2023 10:55 AM SENIOR ACTUARIAL ANALYST ACT, POCT, B Routine 09/19/2023 10:24 AM SENIOR ACTUARIAL ANALYST GLUCOSE POCT, B Routine 09/19/2023 10:23 AM SENIOR ACTUARIAL ANALYST TRANSFUSE RED BLOOD CELLS Routine 09/19/2023 10:13 AM SENIOR ACTUARIAL ANALYST (EDMUNDO) - INTRAOPERATIVE WITH COLOR AND LIMITED DOPPLER (PROBE NOT PLACED) Routine 09/19/2023 9:56 AM SENIOR ACTUARIAL ANALYST SODIUM, B STAT 09/19/2023 9:51 AM SENIOR ACTUARIAL ANALYST ABG W/COOX STAT 09/19/2023 9:51 AM SENIOR ACTUARIAL ANALYST ACT, POCT, B Routine 09/19/2023 9:51 AM SENIOR ACTUARIAL ANALYST POTASSIUM, B STAT 09/19/2023 9:51 AM SENIOR ACTUARIAL ANALYST GLUCOSE, WHOLE BLOOD STAT 09/19/2023 9:51 AM SENIOR ACTUARIAL ANALYST CALCIUM, IONIZED, S/B STAT 09/19/2023 9:51 AM SENIOR ACTUARIAL ANALYST ACT, POCT, B Routine 09/19/2023 9:26 AM SENIOR ACTUARIAL ANALYST HEMOGLOBIN (HGB), POCT, B Routine 09/19/2023 9:24 AM SENIOR ACTUARIAL ANALYST LACTATE, B STAT 09/19/2023 8:25 AM SENIOR ACTUARIAL ANALYST SODIUM, B STAT 09/19/2023 8:25 AM SENIOR ACTUARIAL ANALYST ABG W/COOX STAT 09/19/2023 8:25 AM SENIOR ACTUARIAL ANALYST POTASSIUM, B STAT 09/19/2023 8:25 AM SENIOR ACTUARIAL ANALYST GLUCOSE, WHOLE BLOOD STAT 09/19/2023 8:25 AM SENIOR ACTUARIAL ANALYST CALCIUM, IONIZED, S/B STAT 09/19/2023 8:25 AM SENIOR ACTUARIAL ANALYST ACT, POCT, B Routine 09/19/2023 8:24 AM SENIOR ACTUARIAL ANALYST ECHOCARDIOGRAM TRANSESOPHAGEAL 09/19/2023 7:03 AM SENIOR ACTUARIAL ANALYST Stenosis Aortic Valve Acquired ISOLATION PULMONARY VEIN 09/19/2023 7:03 AM SENIOR ACTUARIAL ANALYST Stenosis Aortic Valve Acquired LIGATION LEFT ATRIAL APPENDAGE 09/19/2023 7:03 AM SENIOR ACTUARIAL ANALYST 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 09/19/2023 7:03 AM SENIOR ACTUARIAL ANALYST Stenosis Aortic Valve Acquired REPLACEMENT AORTIC VALVE 09/19/2023 7:03 AM SENIOR ACTUARIAL ANALYST Stenosis Aortic Valve Acquired PREPARE RED BLOOD CELLS STAT 09/18/2023 9:04 AM SENIOR ACTUARIAL ANALYST PREPARE RED BLOOD CELLS STAT 09/18/2023 9:04 AM SENIOR ACTUARIAL ANALYST PREPARE RED BLOOD CELLS STAT 09/18/2023 9:04 AM SENIOR ACTUARIAL ANALYST documented in this encounter Results * (ABNORMAL) Glucose, POCT (09/26/2023 11:37 AM SENIOR ACTUARIAL ANALYST) Glucose, POCT, B 190(H) 70 - 140 mg/dL 09/26/2023 11:54 AM SENIOR ACTUARIAL ANALYST PCLX Site Capillary 09/26/2023 11:54 AM SENIOR ACTUARIAL ANALYST PCLX Last Intake 3-4 hours 09/26/2023 11:54 AM SENIOR ACTUARIAL ANALYST PCLX Blood 09/26/2023 11:3 7 AM SENIOR ACTUARIAL ANALYST 09/26/2023 11:54 AM SENIOR ACTUARIAL ANALYST Unknown Provider LAB POCT ORDERABLES- MANUAL POC [facility] [address] [place] [address], [place] PCLX [facility] POC [address] [place] [address] * (ABNORMAL) Glucose, POCT (09/26/2023 7:55 AM SENIOR ACTUARIAL ANALYST) Pathologist [facility] Glucose, POCT, B 148(H) 70 - 140 mg/dL 09/26/2023 8:07 AM SENIOR ACTUARIAL ANALYST PCLX Site Capillary 09/26/2023 8:07 AM SENIOR ACTUARIAL ANALYST PCLX Last Intake 3-4 hours 09/26/2023 8:07 AM SENIOR ACTUARIAL ANALYST PCLX Blood 09/26/2023 7:55 AM SENIOR ACTUARIAL ANALYST 09/26/2023 8:07 AM SENIOR ACTUARIAL ANALYST Unknown Provider LAB POCT ORDERABLES- MANUAL POC [facility] SERVICES [address] [place] [address], [facility] PCLX [facility] POC [address] [place] [address] * (ABNORMAL) Basic Metabolic Panel (09/26/2023 6:58 AM SENIOR ACTUARIAL ANALYST) Pathologist [facility] Potassium, S 4.4 3.6 - 5.2 mmol/L 09/26/2023 8:19 AM SENIOR ACTUARIAL ANALYST DTL Sodium, S 141 135 - 145 mmol/L 09/26/2023 8:19 AM SENIOR ACTUARIAL ANALYST DTL Chloride, S 101 98 - 107 mmol/L 09/26/2023 8:19 AM SENIOR ACTUARIAL ANALYST DTL Bicarbonate, S 31(H) 22 - 29 mmol/L 09/26/2023 8:19 AM SENIOR ACTUARIAL ANALYST DTL Anion Gap 9 7 - 15 09/26/2023 8:19 AM SENIOR ACTUARIAL ANALYST DTL BUN (Blood Urea Nitrogen), S 32(H) 8 - 24 mg/dL 09/26/2023 8:19 AM SENIOR ACTUARIAL ANALYST DTL Creatinine 2.41(H) 0.74 - 1.35 mg/dL 09/26/2023 8:19 AM SENIOR ACTUARIAL ANALYST DTL Estimated GFR (eGFR) 28(L) >=60 mL/min/BSA 09/26/2023 8:19 AM SENIOR ACTUARIAL ANALYST DTL Comment: Estimated GFR calculated using the 2020 CKD_EPI creatinine equation. Calcium, Total, S 8.5(L) 8.8 - 10.2 mg/dL 09/26/2023 8:19 AM SENIOR ACTUARIAL ANALYST DTL Glucose, S 151(H) 70 - 140 mg/dL 09/26/2023 8:19 AM SENIOR ACTUARIAL ANALYST DTL Blood (Blood, Venous) 09/26/2023 6:58 AM SENIOR ACTUARIAL ANALYST 09/26/2023 7:58 AM SENIOR ACTUARIAL ANALYST Laila Basurto P.A.-C. LAB BLOOD ADD -ON Performing Organization Address [facility] Co de Phone Number [facility] [address] [facility] [address] [place] [address] * (ABNORMAL) Prothrombin Time (PT) (09/26/2023 6:58 AM SENIOR ACTUARIAL ANALYST) Prothrombin Time, P 22.0(H) 9.4 - 12.5 sec 09/26/2023 8:25 AM SENIOR ACTUARIAL ANALYST DTL INR 2.0 0.9 - 1.1 09/26/2023 8:25 AM SENIOR ACTUARIAL ANALYST DTL Comment: ----ADDITIONAL INFORMATION---- Standard intensity warfarin therapeutic range: 2.0 to 3.0 ?? High intensity warfarin therapeutic range: 2.5 to 3.5 Blood (Blood, Venous) 09/26/2023 6:58 AM SENIOR ACTUARIAL ANALYST 09/26/2023 7:42 AM SENIOR ACTUARIAL ANALYST Anette Hair APRN, C.N.P., D.N.P. LAB B LOOD ADD-ON Performing Organization Address [facility] de Phone Number [facility] [address] [facility] [address] [place] [address] * (ABNORMAL) CBC without Differential (09/26/2023 6:58 AM SENIOR ACTUARIAL ANALYST) Hemoglobin 8.3(L) 13.2 - 16.6 g/dL 09/26/2023 8:04 AM SENIOR ACTUARIAL ANALYST DTL Hematocrit 25.5(L) 38.3 - 48.6 % 09/26/2023 8:04 AM SENIOR ACTUARIAL ANALYST DTL Erythrocytes 2.70(L) 4.35 - 5.65 x10(12)/L 09/26/2023 8:04 AM SENIOR ACTUARIAL ANALYST DTL MCV 94.4 78.2 - 97.9 fL 09/26/2023 8:04 AM SENIOR ACTUARIAL ANALYST DTL RBC Distrib Width 13.5 11.8 - 14.5 % 09/26/2023 8:04 AM SENIOR ACTUARIAL ANALYST DTL Platelet Count 214 135 - 317 x10(9)/L 09/26/2023 8:04 AM SENIOR ACTUARIAL ANALYST DTL Leukocytes 6.7 3.4 - 9.6 x10(9)/L 09/26/2023 8:04 AM SENIOR ACTUARIAL ANALYST DTL Blood (Blood, Venous) 09/26/2023 6:58 AM SENIOR ACTUARIAL ANALYST 09/26/2023 7:43 AM SENIOR ACTUARIAL ANALYST Jenny Jay, B.Ch., B.A.O. LAB BLOOD ADD-ON Performing Organization Address City/[facility]/ZIP Co de Phone Number [facility] [address] [place] [address], [facility] [address] [place] [address] * (ABNORMAL) Glucose, POCT (09/25/2023 8:25 PM SENIOR ACTUARIAL ANALYST) Glucose, POCT, B 193(H) 70 - 140 mg/dL 09/25/2023 8:31 PM SENIOR ACTUARIAL ANALYST PCLX Site Capillary 09/25/2023 8:31 PM SENIOR ACTUARIAL ANALYST PCLX Blood 09/25/2023 8:25 PM SENIOR ACTUARIAL ANALYST 09/25/2023 8:31 PM SENIOR ACTUARIAL ANALYST Unknown Provider LAB POCT ORDERABLES- MANUAL POC [facility] [address] [place] [address], [facility] PCLX [facility] POC [address] [place] [address] * (ABNORMAL) Glucose, POCT (09/25/2023 5:36 PM SENIOR ACTUARIAL ANALYST) Glucose, POCT, B 197(H) 70 - 140 mg/dL 09/25/2023 5:38 PM SENIOR ACTUARIAL ANALYST PCLX Site Capillary 09/25/2023 5:38 PM SENIOR ACTUARIAL ANALYST PCLX Last Intake 3-4 hours 09/25/2023 5:38 PM SENIOR ACTUARIAL ANALYST PCLX Blood 09/25/2023 5:36 PM SENIOR ACTUARIAL ANALYST 09/25/2023 5:39 PM SENIOR ACTUARIAL ANALYST Unknown Provider LAB POCT ORDERABLES- MANUAL Performing Organization Address City/[facility]/ZIP Co de Phone Number POC [facility] [address] [place] [address], [facility] PCLX [facility] POC [address] [place] [address] * (ABNORMAL) Glucose, POCT (09/25/2023 1:13 PM SENIOR ACTUARIAL ANALYST) Glucose, POCT, B 196(H) 70 - 140 mg/dL 09/25/2023 1:15 PM SENIOR ACTUARIAL ANALYST PCLX Last Intake 3-4 hours 09/25/2023 1:15 PM SENIOR ACTUARIAL ANALYST PCLX Blood 09/25/2023 1:13 PM SENIOR ACTUARIAL ANALYST 09/25/2023 1:16 PM SENIOR ACTUARIAL ANALYST Unknown Provider LAB POCT ORDERABLES- MANUAL Performing Organization Address City/[facility] Co de Phone Number POC [facility] [address] [place] [address], [place] PCLX [facility] POC [address] [place] [address] * (ABNORMAL) Basic Metabolic Panel (09/25/2023 9:26 AM SENIOR ACTUARIAL ANALYST) Potassium, S 4.3 3.6 - 5.2 mmol/L 09/25/2023 10:36 AM SENIOR ACTUARIAL ANALYST DTL Sodium, S 138 135 - 145 mmol/L 09/25/2023 10:36 AM SENIOR ACTUARIAL ANALYST DTL Chloride, S 98 98 - 107 mmol/L 09/25/2023 10:36 AM SENIOR ACTUARIAL ANALYST DTL Bicarbonate, S 30(H) 22 - 29 mmol/L 09/25/2023 10:36 AM SENIOR ACTUARIAL ANALYST DTL Anion Gap 10 7 - 15 09/25/2023 10:36 AM SENIOR ACTUARIAL ANALYST DTL BUN (Blood Urea Nitrogen), S 34(H) 8 - 24 mg/dL 09/25/2023 10:36 AM SENIOR ACTUARIAL ANALYST DTL Creatinine 2.64(H) 0.74 - 1.35 mg/dL 09/25/2023 10:36 AM SENIOR ACTUARIAL ANALYST DTL Estimated GFR (eGFR) 25(L) >=60 mL/min/BSA 09/25/2023 10:36 AM SENIOR ACTUARIAL ANALYST DTL Comment: Estimated GFR calculated using the 2020 CKD_EPI creatinine equation. Calcium, Total, S 8.6(L) 8.8 - 10.2 mg/dL 09/25/2023 10:36 AM SENIOR ACTUARIAL ANALYST DTL Glucose, S 177(H) 70 - 140 mg/dL 09/25/2023 10:36 AM SENIOR ACTUARIAL ANALYST DTL Blood (Blood, Venous) 09/25/2023 9:26 AM SENIOR ACTUARIAL ANALYST 09/25/2023 10:18 AM SENIOR ACTUARIAL ANALYST Laila Basurto P.A.-C. LAB BLOOD ADD -ON Performing Organization Address City/[facility]/ZIP Co de Phone Number [facility] [address] [place] [address], [facility] DTL [facility] [address] [place] [address] * (ABNORMAL) Prothrombin Time (PT) (09/25/2023 9:26 AM SENIOR ACTUARIAL ANALYST) Prothrombin Time, P 22.4(H) 9.4 - 12.5 sec 09/25/2023 11:10 AM SENIOR ACTUARIAL ANALYST DTL INR 2.0 0.9 - 1.1 09/25/2023 11:10 AM SENIOR ACTUARIAL ANALYST DTL Comment: ----ADDITIONAL INFORMATION---- Standard intensity warfarin therapeutic range: 2.0 to 3.0 ?? High intensity warfarin therapeutic range: 2.5 to 3.5 Blood (Blood, Venous) 09/25/2023 9:26 AM SENIOR ACTUARIAL ANALYST 09/25/2023 10:05 AM SENIOR ACTUARIAL ANALYST Anette Hair APRN, C.N.P., D.N.P. LAB B LOOD ADD-ON [facility] [address] [place] [address], [facility] DTL [facility] [address] [place] [address] * (ABNORMAL) CBC without Differential (09/25/2023 9:26 AM SENIOR ACTUARIAL ANALYST) Pathologist [facility] Hemoglobin 9.0(L) 13.2 - 16.6 g/dL 09/25/2023 10:55 AM SENIOR ACTUARIAL ANALYST DTL Hematocrit 27.2(L) 38.3 - 48.6 % 09/25/2023 10:55 AM SENIOR ACTUARIAL ANALYST DTL Erythrocytes 2.93(L) 4.35 - 5.65 x10(12)/L 09/25/2023 10:55 AM SENIOR ACTUARIAL ANALYST DTL MCV 92.8 78.2 - 97.9 fL 09/25/2023 10:55 AM SENIOR ACTUARIAL ANALYST DTL RBC Distrib Width 13.6 11.8 - 14.5 % 09/25/2023 10:55 AM SENIOR ACTUARIAL ANALYST DTL Platelet Count 229 135 - 317 x10(9)/L 09/25/2023 10:55 AM SENIOR ACTUARIAL ANALYST DTL Leukocytes 7.5 3.4 - 9.6 x10(9)/L 09/25/2023 10:55 AM SENIOR ACTUARIAL ANALYST DTL Blood (Blood, Venous) 09/25/2023 9:26 AM SENIOR ACTUARIAL ANALYST 09/25/2023 10:09 AM SENIOR ACTUARIAL ANALYST Jenny Jay, B.Betty., B.A.O. LAB BLOOD ADD-ON Performing Organization Address City/State/[facility] [place] [address], [facility] [place] [address] * (ABNORMAL) Glucose, POCT (09/25/2023 8:10 AM SENIOR ACTUARIAL ANALYST) Pathologist [facility] Glucose, POCT, B 161(H) 70 - 140 mg/dL 09/25/2023 8:19 AM SENIOR ACTUARIAL ANALYST PCLX Site Capillary 09/25/2023 8:19 AM SENIOR ACTUARIAL ANALYST PCLX Last Intake 3-4 hours 09/25/2023 8:19 AM SENIOR ACTUARIAL ANALYST PCLX Blood 09/25/2023 8:10 AM SENIOR ACTUARIAL ANALYST 09/25/2023 8:19 AM SENIOR ACTUARIAL ANALYST Unknown Provider LAB POCT ORDERABLES- MANUAL POC [facility] [address] [place] [address], [place] PCLX [facility] POC [address] [place], [place] [id number] * DX Chest AP or PA and Lateral 2 Views (09/25/2023 7:26 AM SENIOR ACTUARIAL ANALYST) Anatomical Region Laterality Modality Chest, Thoracic RST LOS, Tho racic ARZ LOS, Thoracic FLA LOS N/A Digital Radiography 09/25/2023 8:59 AM SENIOR ACTUARIAL ANALYST Impressions 09/25/2023 9:01 AM SENIOR ACTUARIAL ANALYST Sternotomy with aortic valve replacement. Mild enlargement of cardiac silhouette. Loop recorder. Trace pleural effusions. Azygos fissure. Aortic calcification. Degenerative arthritis thoracic spine. No pneumothorax. No significant change since 09/23/2023. Narrative 09/25/2023 9:01 AM SENIOR ACTUARIAL ANALYST EXAM: ??DX CHEST AP OR PA [...] * ECG 12 Lead (09/25/2023 4:55 AM SENIOR ACTUARIAL ANALYST) Ventricular Rate ECG/Min 69 BPM MUSE DE Interval 140 ms MUSE QRSD Interval 86 ms MUSE QT Interval 420 ms MUSE QTC Interval 450 ms MUSE P [place] 30 degrees MUSE R [place] 29 degrees MUSE T Wave [place] 74 degrees MUSE 09/25/2023 4:55 AM SENIOR ACTUARIAL ANALYST 09/25/2023 5:12 AM SENIOR ACTUARIAL ANALYST Impressions MUSE - 09/25/2023 5:13 AM SENIOR ACTUARIAL ANALYST Normal sinus rhythm Low voltage QRS [...] P.A.-C. ECG ORDERABLE S Performing Organization Address [facility]/ZIP Co de Phone Number MUSE NA * (ABNORMAL) Glucose, POCT (09/24/2023 8:33 PM SENIOR ACTUARIAL ANALYST) Glucose, POCT, B 183(H) 70 - 140 mg/dL 09/24/2023 8:40 PM SENIOR ACTUARIAL ANALYST PCLX Site Capillary 09/24/2023 8:40 PM SENIOR ACTUARIAL ANALYST PCLX Blood 09/24/2023 8:33 PM SENIOR ACTUARIAL ANALYST 09/24/2023 8:40 PM SENIOR ACTUARIAL ANALYST Unknown Provider LAB POCT ORDERABLES- MANUAL Performing Organization Address [facility] de Phone Number [facility] [address] PCLX [facility] POC [address] [place] [address] * (ABNORMAL) Glucose, POCT (09/24/2023 4:44 PM SENIOR ACTUARIAL ANALYST) Glucose, POCT, B 221(H) 70 - 140 mg/dL 09/24/2023 4:59 PM SENIOR ACTUARIAL ANALYST PCLX Site Capillary 09/24/2023 4:59 PM SENIOR ACTUARIAL ANALYST PCLX Last Intake 2-3 hours 09/24/2023 4:59 PM SENIOR ACTUARIAL ANALYST PCLX Blood 09/24/2023 4:44 PM SENIOR ACTUARIAL ANALYST 09/24/2023 5:00 PM SENIOR ACTUARIAL ANALYST Unknown Provider LAB POCT ORDERABLES- MANUAL Performing Organization Address [facility] Co de Phone Number [facility] [address] [place] [address], [facility] PCLX [facility] POC [address] [place] [address] * (TTE) 2D ECHO DOPPLER COLOR (09/24/2023 3:26 PM SENIOR ACTUARIAL ANALYST) Ejection Fraction 64 MC CV EIMS Mid-Ascending [...] Region Laterality Modality Echocardiography 09/24/2023 1:57 PM SENIOR ACTUARIAL ANALYST Impressions 09/24/2023 5:48 PM SENIOR ACTUARIAL ANALYST Echocardiogram performed per dismissal echo protocol. [...] the Order-Level Documents. Narrative 09/24/2023 5:48 PM SENIOR ACTUARIAL ANALYST For the complete report, see the [...] disc not well seen. Mean aortic prosthetic [id number] mmHg; EOA 2.1 cm2. Trivial (washing jets) [...] * (ABNORMAL) Glucose, POCT (09/24/2023 12:43 PM SENIOR ACTUARIAL ANALYST) Glucose, POCT, B 216(H) 70 - 140 mg/dL 09/24/2023 12:51 PM SENIOR ACTUARIAL ANALYST PCLX Site Capillary 09/24/2023 12:51 PM SENIOR ACTUARIAL ANALYST PCLX Last Intake 3-4 hours 09/24/2023 12:51 PM SENIOR ACTUARIAL ANALYST PCLX Blood 09/24/2023 12:4 3 PM SENIOR ACTUARIAL ANALYST 09/24/2023 12:51 PM SENIOR ACTUARIAL ANALYST Unknown Provider LAB POCT ORDERABLES- MANUAL Performing Organization Address City/[facility] Co de Phone Number POC [facility] [address] [place] [address], [facility] PCLX [facility] POC [address] [place] [address] * Glucose, POCT (09/24/2023 7:19 AM SENIOR ACTUARIAL ANALYST) Glucose, POCT, B 138 70 - 140 mg/dL 09/24/2023 7:30 AM SENIOR ACTUARIAL ANALYST PCLX Site Capillary 09/24/2023 7:30 AM SENIOR ACTUARIAL ANALYST PCLX Last Intake 3-4 hours 09/24/2023 7:30 AM SENIOR ACTUARIAL ANALYST PCLX Blood 09/24/2023 7:19 AM SENIOR ACTUARIAL ANALYST 09/24/2023 7:30 AM SENIOR ACTUARIAL ANALYST Unknown Provider LAB POCT ORDERABLES- MANUAL Performing Organization Address City/[facility] Co de Phone Number [facility] [address] [place] [address], [facility] PCLX [facility] POC [address] [place] [address] * (ABNORMAL) Basic Metabolic Panel (09/24/2023 6:49 AM SENIOR ACTUARIAL ANALYST) Potassium, S 4.3 3.6 - 5.2 mmol/L 09/24/2023 8:25 AM SENIOR ACTUARIAL ANALYST DTL Sodium, S 138 135 - 145 mmol/L 09/24/2023 8:25 AM SENIOR ACTUARIAL ANALYST DTL Chloride, S 99 98 - 107 mmol/L 09/24/2023 8:25 AM SENIOR ACTUARIAL ANALYST DTL Bicarbonate, S 29 22 - 29 mmol/L 09/24/2023 8:25 AM SENIOR ACTUARIAL ANALYST DTL Anion Gap 10 7 - 15 09/24/2023 8:25 AM SENIOR ACTUARIAL ANALYST DTL BUN (Blood Urea Nitrogen), S 36(H) 8 - 24 mg/dL 09/24/2023 8:25 AM SENIOR ACTUARIAL ANALYST DTL Creatinine 2.48(H) 0.74 - 1.35 mg/dL 09/24/2023 8:25 AM SENIOR ACTUARIAL ANALYST DTL Estimated GFR (eGFR) 27(L) >=60 mL/min/BSA 09/24/2023 8:25 AM SENIOR ACTUARIAL ANALYST DTL Comment: Estimated GFR calculated using the 2020 CKD_EPI creatinine equation. Calcium, Total, S 8.3(L) 8.8 - 10.2 mg/dL 09/24/2023 8:25 AM SENIOR ACTUARIAL ANALYST DTL Glucose, S 148(H) 70 - 140 mg/dL 09/24/2023 8:25 AM SENIOR ACTUARIAL ANALYST DTL Blood (Blood, Venous) 09/24/2023 6:49 AM SENIOR ACTUARIAL ANALYST 09/24/2023 8:01 AM SENIOR ACTUARIAL ANALYST Laila Basurto P.A.-C. [place] [address], [place] [address] * (ABNORMAL) Prothrombin Time (PT) (09/24/2023 6:49 AM SENIOR ACTUARIAL ANALYST) Prothrombin Time, P 28.9(H) 9.4 - 12.5 sec 09/24/2023 8:17 AM SENIOR ACTUARIAL ANALYST DTL INR 2.6 0.9 - 1.1 09/24/2023 8:17 AM SENIOR ACTUARIAL ANALYST DTL Comment: ----ADDITIONAL INFORMATION---- Standard intensity warfarin therapeutic range: 2.0 to 3.0 ?? High intensity warfarin therapeutic range: 2.5 to 3.5 Blood (Blood, Venous) 09/24/2023 6:49 AM SENIOR ACTUARIAL ANALYST 09/24/2023 7:44 AM SENIOR ACTUARIAL ANALYST Anette Hair APRN, C.N.P., D.N.PJarrett LAB B LOOD ADD-ON Performing Organization Address [facility] de Phone Number [facility] [address] [place], [place] [address] 200 [place] [address] * (ABNORMAL) CBC without Differential (09/24/2023 6:49 AM SENIOR ACTUARIAL ANALYST) Pathologist [facility] Hemoglobin 8.3(L) 13.2 - 16.6 g/dL 09/24/2023 8:01 AM SENIOR ACTUARIAL ANALYST DTL Hematocrit 24.2(L) 38.3 - 48.6 % 09/24/2023 8:01 AM SENIOR ACTUARIAL ANALYST DTL Erythrocytes 2.62(L) 4.35 - 5.65 x10(12)/L 09/24/2023 8:01 AM SENIOR ACTUARIAL ANALYST DTL MCV 92.4 78.2 - 97.9 fL 09/24/2023 8:01 AM SENIOR ACTUARIAL ANALYST DTL RBC Distrib Width 13.3 11.8 - 14.5 % 09/24/2023 8:01 AM SENIOR ACTUARIAL ANALYST DTL Platelet Count 163 135 - 317 x10(9)/L 09/24/2023 8:01 AM SENIOR ACTUARIAL ANALYST DTL Leukocytes 6.4 3.4 - 9.6 x10(9)/L 09/24/2023 8:01 AM SENIOR ACTUARIAL ANALYST DTL Blood (Blood, Venous) 09/24/2023 6:49 AM SENIOR ACTUARIAL ANALYST 09/24/2023 7:46 AM SENIOR ACTUARIAL ANALYST Jenny Jay, B.Ch., B.A.O. LAB BLOOD ADD-ON Performing Organization Address City/[facility] Co de Phone Number [facility] [address] [place] [address], [facility] 200 [place] [address] * (ABNORMAL) Glucose, POCT (09/23/2023 9:38 PM SENIOR ACTUARIAL ANALYST) Glucose, POCT, B 186(H) 70 - 140 mg/dL 09/23/2023 9:51 PM SENIOR ACTUARIAL ANALYST PCLX Site Capillary 09/23/2023 9:51 PM SENIOR ACTUARIAL ANALYST PCLX Last Intake 1-2 hours 09/23/2023 9:51 PM SENIOR ACTUARIAL ANALYST PCLX Blood 09/23/2023 9:38 PM SENIOR ACTUARIAL ANALYST 09/23/2023 9:51 PM SENIOR ACTUARIAL ANALYST Unknown Provider LAB POCT ORDERABLES- MANUAL Performing Organization Address City/[facility] Co de Phone Number POC [facility] [address] [place] [address], [facility] PCLX [facility] POC [address] [place] [address] * (ABNORMAL) Glucose, POCT (09/23/2023 5:02 PM SENIOR ACTUARIAL ANALYST) Glucose, POCT, B 190(H) 70 - 140 mg/dL 09/23/2023 5:17 PM SENIOR ACTUARIAL ANALYST PCLX Site Capillary 09/23/2023 5:17 PM SENIOR ACTUARIAL ANALYST PCLX Last Intake 3-4 hours 09/23/2023 5:17 PM SENIOR ACTUARIAL ANALYST PCLX Blood 09/23/2023 5:02 PM SENIOR ACTUARIAL ANALYST 09/23/2023 5:17 PM SENIOR ACTUARIAL ANALYST Unknown Provider LAB POCT ORDERABLES- MANUAL Performing Organization Address [facility] de Phone Number [facility] [address] [place] [address], [facility] PCLX [facility] POC [address] [place] [address] * (ABNORMAL) Basic Metabolic Panel (09/23/2023 3:44 PM SENIOR ACTUARIAL ANALYST) Potassium, P 4.4 3.6 - 5.2 mmol/L 09/23/2023 4:06 PM SENIOR ACTUARIAL ANALYST STMA Sodium, P 136 135 - 145 mmol/L 09/23/2023 4:06 PM SENIOR ACTUARIAL ANALYST STMA Chloride, P 97(L) 98 - 107 mmol/L 09/23/2023 4:06 PM SENIOR ACTUARIAL ANALYST STMA Bicarbonate, P 30(H) 22 - 29 mmol/L 09/23/2023 4:06 PM SENIOR ACTUARIAL ANALYST STMA Anion Gap, P 9 7 - 15 09/23/2023 4:06 PM SENIOR ACTUARIAL ANALYST STMA BUN (Blood Urea Nitrogen), P 42(H) 8 - 24 mg/dL 09/23/2023 4:06 PM SENIOR ACTUARIAL ANALYST STMA Creatinine 2.54(H) 0.74 - 1.35 mg/dL 09/23/2023 4:06 PM SENIOR ACTUARIAL ANALYST STMA Estimated GFR (eGFR) 26(L) >=60 mL/min/BSA 09/23/2023 4:06 PM SENIOR ACTUARIAL ANALYST STMA Comment: Estimated GFR calculated using the 2020 CKD_EPI creatinine equation. Calcium, Total, P 8.9 8.8 - 10.2 mg/dL 09/23/2023 4:06 PM SENIOR ACTUARIAL ANALYST STMA Glucose, P 213(H) 70 - 140 mg/dL 09/23/2023 4:06 PM SENIOR ACTUARIAL ANALYST STMA Blood (Blood, Venous) 09/23/2023 3:44 PM SENIOR ACTUARIAL ANALYST 09/23/2023 3:50 PM SENIOR ACTUARIAL ANALYST Laila Basurto P.A.-C. LAB BLOOD ADD -ON Performing Organization Address City/[facility]/ZIP Co de Phone Number [facility] [address] [place], [place] [address] [place] [address] 200 [place] [address] * (ABNORMAL) Hemoglobin (09/23/2023 3:44 PM SENIOR ACTUARIAL ANALYST) Hemoglobin 8.1(L) 13.2 - 16.6 g/dL 09/23/2023 3:52 PM SENIOR ACTUARIAL ANALYST STMA Blood (Blood, Venous) 09/23/2023 3:44 PM SENIOR ACTUARIAL ANALYST 09/23/2023 3:49 PM SENIOR ACTUARIAL ANALYST Laila Basurto P.A.-C. LAB BLOOD ADD -ON Performing Organization Address City/[facility]/ZIP Co de Phone Number [facility] [address] [place], [place] [address] [place] [address] * (ABNORMAL) Prothrombin Time (PT) (09/23/2023 3:44 PM SENIOR ACTUARIAL ANALYST) Prothrombin Time, P 41.6(H) 9.4 - 12.5 sec 09/23/2023 3:56 PM SENIOR ACTUARIAL ANALYST STMA INR 3.7 0.9 - 1.1 09/23/2023 3:56 PM SENIOR ACTUARIAL ANALYST STMA Comment: ----ADDITIONAL INFORMATION---- Standard intensity warfarin therapeutic range: 2.0 to 3.0 ?? High intensity warfarin therapeutic range: 2.5 to 3.5 Blood (Blood, Venous) 09/23/2023 3:44 PM SENIOR ACTUARIAL ANALYST 09/23/2023 3:49 PM SENIOR ACTUARIAL ANALYST Laila Basurto P.A.-C. LAB BLOOD ADD -ON Performing Organization Address City/[facility]/ZIP Co de Phone Number [facility] [address] [place] [place] [address] [place] [address] STMA [facility] [address] [place] [address] * (ABNORMAL) Glucose, POCT (09/23/2023 12:19 PM SENIOR ACTUARIAL ANALYST) Pathologist [facility] Glucose, POCT, B 169(H) 70 - 140 mg/dL 09/23/2023 12:26 PM SENIOR ACTUARIAL ANALYST PCLX Site Capillary 09/23/2023 12:26 PM SENIOR ACTUARIAL ANALYST PCLX Last Intake 3-4 hours 09/23/2023 12:26 PM SENIOR ACTUARIAL ANALYST PCLX Blood 09/23/2023 12:1 9 PM SENIOR ACTUARIAL ANALYST 09/23/2023 12:26 PM SENIOR ACTUARIAL ANALYST Unknown Provider LAB POCT ORDERABLES- MANUAL Performing Organization Address [facility] Co de Phone Number POC [facility] [address] [place] [address], [facility] PCLX [facility] POC [address] [place] [address] * DX Chest AP or PA and Lateral 2 Views (09/23/2023 8:44 AM SENIOR ACTUARIAL ANALYST) Anatomical Region Laterality Modality Chest, Thoracic RST LOS, Tho racic ARZ LOS, Thoracic FLA LOS N/A Digital Radiography 09/23/2023 10:2 2 AM SENIOR ACTUARIAL ANALYST Impressions 09/23/2023 10:23 AM SENIOR ACTUARIAL ANALYST The right IJ vascular sheath has been removed since 09/20/2023. Improved aeration with decrease accentuation of the cardiovascular structures. Decrease vascular congestion. Likely similar small bilateral pleural effusions, allowing for differences in technique. Loop recorder, sternotomy, AVR, normal variant azygos lobe are again identified. Narrative 09/23/2023 10:23 AM SENIOR ACTUARIAL ANALYST EXAM: ??DX CHEST AP OR PA [...] (ABNORMAL) Basic Metabolic Panel (09/23/2023 7:34 AM SENIOR ACTUARIAL ANALYST) Pathologist [facility] Potassium, S 4.5 3.6 - 5.2 mmol/L 09/23/2023 8:46 AM SENIOR ACTUARIAL ANALYST DTL Sodium, S 135 135 - 145 mmol/L 09/23/2023 8:46 AM SENIOR ACTUARIAL ANALYST DTL Chloride, S 98 98 - 107 mmol/L 09/23/2023 8:46 AM SENIOR ACTUARIAL ANALYST DTL Bicarbonate, S 29 22 - 29 mmol/L 09/23/2023 8:46 AM SENIOR ACTUARIAL ANALYST DTL Anion Gap 8 7 - 15 09/23/2023 8:46 AM SENIOR ACTUARIAL ANALYST DTL BUN (Blood Urea Nitrogen), S 39(H) 8 - 24 mg/dL 09/23/2023 8:46 AM SENIOR ACTUARIAL ANALYST DTL Creatinine 2.54(H) 0.74 - 1.35 mg/dL 09/23/2023 8:46 AM SENIOR ACTUARIAL ANALYST DTL Estimated GFR (eGFR) 26(L) >=60 mL/min/BSA 09/23/2023 8:46 AM SENIOR ACTUARIAL ANALYST DTL Comment: Estimated GFR calculated using the 2020 CKD_EPI creatinine equation. Calcium, Total, S 8.3(L) 8.8 - 10.2 mg/dL 09/23/2023 8:46 AM SENIOR ACTUARIAL ANALYST DTL Glucose, S 159(H) 70 - 140 mg/dL 09/23/2023 8:46 AM SENIOR ACTUARIAL ANALYST DTL Blood (Blood, Venous) 09/23/2023 7:34 AM SENIOR ACTUARIAL ANALYST 09/23/2023 8:25 AM SENIOR ACTUARIAL ANALYST Laila Basurto P.A.-C. LAB BLOOD ADD -ON Performing Organization Address City/[facility] Co de Phone Number [facility] [address] [place] [address], [facility] DTL [facility] [address] [place] [address] * (ABNORMAL) Prothrombin Time (PT) (09/23/2023 7:34 AM SENIOR ACTUARIAL ANALYST) Pathologist [facility] Prothrombin Time, P 35.5(H) 9.4 - 12.5 sec 09/23/2023 8:23 AM SENIOR ACTUARIAL ANALYST DTL INR 3.2 0.9 - 1.1 09/23/2023 8:23 AM SENIOR ACTUARIAL ANALYST DTL Comment: ----ADDITIONAL INFORMATION---- Standard intensity warfarin therapeutic range: 2.0 to 3.0 ?? High intensity warfarin therapeutic range: 2.5 to 3.5 Blood (Blood, Venous) 09/23/2023 7:34 AM SENIOR ACTUARIAL ANALYST 09/23/2023 8:05 AM SENIOR ACTUARIAL ANALYST Anette Hair APRN, C.N.P., D.N.P. LAB B LOOD ADD-ON Performing Organization Address City/[facility]/ZIP Co de Phone Number [facility] [address] [place] [address], [facility] DTL [facility] [address] [place] [address] * (ABNORMAL) CBC without Differential (09/23/2023 7:34 AM SENIOR ACTUARIAL ANALYST) Hemoglobin 8.2(L) 13.2 - 16.6 g/dL 09/23/2023 8:13 AM SENIOR ACTUARIAL ANALYST DTL Hematocrit 24.2(L) 38.3 - 48.6 % 09/23/2023 8:13 AM SENIOR ACTUARIAL ANALYST DTL Erythrocytes 2.67(L) 4.35 - 5.65 x10(12)/L 09/23/2023 8:13 AM SENIOR ACTUARIAL ANALYST DTL MCV 90.6 78.2 - 97.9 fL 09/23/2023 8:13 AM SENIOR ACTUARIAL ANALYST DTL RBC Distrib Width 13.2 11.8 - 14.5 % 09/23/2023 8:13 AM SENIOR ACTUARIAL ANALYST DTL Platelet Count 147 135 - 317 x10(9)/L 09/23/2023 8:13 AM SENIOR ACTUARIAL ANALYST DTL Leukocytes 8.3 3.4 - 9.6 x10(9)/L 09/23/2023 8:13 AM SENIOR ACTUARIAL ANALYST DTL Blood (Blood, Venous) 09/23/2023 7:34 AM SENIOR ACTUARIAL ANALYST 09/23/2023 8:04 AM SENIOR ACTUARIAL ANALYST Jenny Jay, B.Ch., B.A.O. LAB BLOOD ADD-ON [facility] [place] [address], [facility] [place] [address] * (ABNORMAL) Hepatic Function Panel (09/23/2023 7:31 AM SENIOR ACTUARIAL ANALYST) Bilirubin, Total, S 0.5 0.0 - 1.2 mg/dL 09/23/2023 9:47 AM SENIOR ACTUARIAL ANALYST DTL Bilirubin, Direct, S <0.2 0.0 - 0.3 mg/dL 09/23/2023 9:47 AM SENIOR ACTUARIAL ANALYST DTL Aspartate Aminotransferase (AST), S 21 8 - 48 U/L 09/23/2023 9:47 AM SENIOR ACTUARIAL ANALYST DTL Alanine Aminotransferase (ALT), S 9 7 - 55 U/L 09/23/2023 9:47 AM SENIOR ACTUARIAL ANALYST DTL Alkaline Phosphatase, S 63 40 - 129 U/L 09/23/2023 9:47 AM SENIOR ACTUARIAL ANALYST DTL Albumin, S 3.0(L) 3.5 - 5.0 g/dL 09/23/2023 9:47 AM SENIOR ACTUARIAL ANALYST DTL Protein, Total, S 4.9(L) 6.3 - 7.9 g/dL 09/23/2023 9:47 AM SENIOR ACTUARIAL ANALYST DTL Blood (Blood, Venous) 09/23/2023 7:31 AM SENIOR ACTUARIAL ANALYST 09/23/2023 9:19 AM SENIOR ACTUARIAL ANALYST Laila Basurto P.A.-C. LAB BLOOD ADD -ON [facility] [address] [place] [address], [facility] DTL [facility] [address] [place] [address] * (ABNORMAL) Glucose, POCT (09/23/2023 7:24 AM SENIOR ACTUARIAL ANALYST) Glucose, POCT, B 147(H) 70 - 140 mg/dL 09/23/2023 7:40 AM SENIOR ACTUARIAL ANALYST PCLX Site Capillary 09/23/2023 7:40 AM SENIOR ACTUARIAL ANALYST PCLX Last Intake 3-4 hours 09/23/2023 7:40 AM SENIOR ACTUARIAL ANALYST PCLX Blood 09/23/2023 7:24 AM SENIOR ACTUARIAL ANALYST 09/23/2023 7:40 AM SENIOR ACTUARIAL ANALYST Unknown Provider LAB POCT ORDERABLES- MANUAL Performing Organization Address City/[facility]/ZIP Co de Phone Number POC [facility] [address] [place] [address], [facility] PCLX [facility] [address] [place] [address] * (ABNORMAL) Basic Metabolic Panel (09/22/2023 11:14 PM SENIOR ACTUARIAL ANALYST) Potassium, P 4.4 3.6 - 5.2 mmol/L 09/22/2023 11:40 PM SENIOR ACTUARIAL ANALYST STMA Sodium, P 134(L) 135 - 145 mmol/L 09/22/2023 11:40 PM SENIOR ACTUARIAL ANALYST STMA Chloride, P 94(L) 98 - 107 mmol/L 09/22/2023 11:40 PM SENIOR ACTUARIAL ANALYST STMA Bicarbonate, P 28 22 - 29 mmol/L 09/22/2023 11:40 PM SENIOR ACTUARIAL ANALYST STMA Anion Gap, P 12 7 - 15 09/22/2023 11:40 PM SENIOR ACTUARIAL ANALYST STMA BUN (Blood Urea Nitrogen), P 40(H) 8 - 24 mg/dL 09/22/2023 11:40 PM SENIOR ACTUARIAL ANALYST STMA Creatinine 2.38(H) 0.74 - 1.35 mg/dL 09/22/2023 11:40 PM SENIOR ACTUARIAL ANALYST STMA Estimated GFR (eGFR) 28(L) >=60 mL/min/BSA 09/22/2023 11:40 PM SENIOR ACTUARIAL ANALYST STMA Comment: Estimated GFR calculated using the 2020 CKD_EPI creatinine equation. Calcium, Total, P 8.7(L) 8.8 - 10.2 mg/dL 09/22/2023 11:40 PM SENIOR ACTUARIAL ANALYST STMA Glucose, P 146(H) 70 - 140 mg/dL 09/22/2023 11:40 PM SENIOR ACTUARIAL ANALYST STMA Blood (Blood, Venous) 09/22/2023 11:14 PM SENIOR ACTUARIAL ANALYST 09/22/2023 11:24 PM SENIOR ACTUARIAL ANALYST Marcela Lee APRN, C.N.P., M.S.N. LAB BLOO D ADD-ON [facility] [address] [place] [address], [facility] [address] [place] [address] * (ABNORMAL) CBC without Differential (09/22/2023 11:14 PM SENIOR ACTUARIAL ANALYST) Hemoglobin 8.6(L) 13.2 - 16.6 g/dL 09/22/2023 11:26 PM SENIOR ACTUARIAL ANALYST STMA Hematocrit 25.7(L) 38.3 - 48.6 % 09/22/2023 11:26 PM SENIOR ACTUARIAL ANALYST STMA Erythrocytes 2.89(L) 4.35 - 5.65 x10(12)/L 09/22/2023 11:26 PM SENIOR ACTUARIAL ANALYST STMA MCV 88.9 78.2 - 97.9 fL 09/22/2023 11:26 PM SENIOR ACTUARIAL ANALYST STMA RBC Distrib Width 13.2 11.8 - 14.5 % 09/22/2023 11:26 PM SENIOR ACTUARIAL ANALYST STMA Platelet Count 146 135 - 317 x10(9)/L 09/22/2023 11:26 PM SENIOR ACTUARIAL ANALYST STMA Leukocytes 9.3 3.4 - 9.6 x10(9)/L 09/22/2023 11:26 PM SENIOR ACTUARIAL ANALYST STMA Blood (Blood, Venous) 09/22/2023 11:14 PM SENIOR ACTUARIAL ANALYST 09/22/2023 11:24 PM SENIOR ACTUARIAL ANALYST Radha Tesfaye APRNNGrant., M.S.N. LAB BLOO D ADD-ON Performing Organization Address [facility] Co de Phone Number [facility] [address] [place] [address], [facility] STMA [facility] [address] [place] [address] * (ABNORMAL) Glucose, POCT (09/22/2023 9:29 PM SENIOR ACTUARIAL ANALYST) Glucose, POCT, B 159(H) 70 - 140 mg/dL 09/22/2023 9:31 PM SENIOR ACTUARIAL ANALYST PCLX Blood 09/22/2023 9:29 PM SENIOR ACTUARIAL ANALYST 09/22/2023 9:32 PM SENIOR ACTUARIAL ANALYST Unknown Provider LAB POCT ORDERABLES- MANUAL Performing Organization Address [facility] de Phone Number POC [facility] [address] [place] [address], [facility] PCLX [facility] POC [address] [place] [address] * Transfuse Red Blood Cells : (09/22/2023 4:21 PM SENIOR ACTUARIAL ANALYST) Laila Basurto P.A.-C. BLOOD TRANSFU RAHUL ORDERABLES * Transfuse Red Blood Cells : , 1 Units (09/22/2023 4:21 PM SENIOR ACTUARIAL ANALYST) Laila Basurto P.A.-C. BLOOD TRANSFU RAHUL ORDERABLES * (ABNORMAL) Glucose, POCT (09/22/2023 11:27 AM SENIOR ACTUARIAL ANALYST) Glucose, POCT, B 192(H) 70 - 140 mg/dL 09/22/2023 11:36 AM SENIOR ACTUARIAL ANALYST PCLX Site Capillary 09/22/2023 11:36 AM SENIOR ACTUARIAL ANALYST PCLX Last Intake 1-2 hours 09/22/2023 11:36 AM SENIOR ACTUARIAL ANALYST PCLX Blood 09/22/2023 11:2 7 AM SENIOR ACTUARIAL ANALYST 09/22/2023 11:37 AM SENIOR ACTUARIAL ANALYST Unknown Provider LAB POCT ORDERABLES- MANUAL Performing Organization Address City/[facility]/ZIP Co de Phone Number POC [facility] [address] [place] [address], [facility] PCLX [facility] POC [address] [place] [address] * Glucose, POCT (09/22/2023 7:34 AM SENIOR ACTUARIAL ANALYST) Glucose, POCT, B 133 70 - 140 mg/dL 09/22/2023 7:46 AM SENIOR ACTUARIAL ANALYST PCLX Site Capillary 09/22/2023 7:46 AM SENIOR ACTUARIAL ANALYST PCLX Last Intake 3-4 hours 09/22/2023 7:46 AM SENIOR ACTUARIAL ANALYST PCLX Blood 09/22/2023 7:34 AM SENIOR ACTUARIAL ANALYST 09/22/2023 7:46 AM SENIOR ACTUARIAL ANALYST Unknown Provider LAB POCT ORDERABLES- MANUAL Performing Organization Address City/[facility] Co de Phone Number POC [facility] [address] [place] [address], [facility] PCLX [facility] P[facility] [address] [place] [address] * (ABNORMAL) Basic Metabolic Panel (09/22/2023 7:04 AM SENIOR ACTUARIAL ANALYST) Potassium, S 4.5 3.6 - 5.2 mmol/L 09/22/2023 8:18 AM SENIOR ACTUARIAL ANALYST DTL Sodium, S 135 135 - 145 mmol/L 09/22/2023 8:18 AM SENIOR ACTUARIAL ANALYST DTL Chloride, S 99 98 - 107 mmol/L 09/22/2023 8:18 AM SENIOR ACTUARIAL ANALYST DTL Bicarbonate, S 28 22 - 29 mmol/L 09/22/2023 8:18 AM SENIOR ACTUARIAL ANALYST DTL Anion Gap 8 7 - 15 09/22/2023 8:18 AM SENIOR ACTUARIAL ANALYST DTL BUN (Blood Urea Nitrogen), S 37(H) 8 - 24 mg/dL 09/22/2023 8:18 AM SENIOR ACTUARIAL ANALYST DTL Creatinine 2.38(H) 0.74 - 1.35 mg/dL 09/22/2023 8:18 AM SENIOR ACTUARIAL ANALYST DTL Estimated GFR (eGFR) 28(L) >=60 mL/min/BSA 09/22/2023 8:18 AM SENIOR ACTUARIAL ANALYST DTL Comment: Estimated GFR calculated using the 2020 CKD_EPI creatinine equation. Calcium, Total, S 8.5(L) 8.8 - 10.2 mg/dL 09/22/2023 8:18 AM SENIOR ACTUARIAL ANALYST DTL Glucose, S 141(H) 70 - 140 mg/dL 09/22/2023 8:18 AM SENIOR ACTUARIAL ANALYST DTL Blood (Blood, Venous) 09/22/2023 7:04 AM SENIOR ACTUARIAL ANALYST 09/22/2023 7:58 AM SENIOR ACTUARIAL ANALYST Laila Basurto P.A.-C. LAB BLOOD ADD -ON Performing Organization Address City/[facility]/ZIP Co de Phone Number [facility] [address] [place] [address], [facility] DTL [facility] [address] [place] [address] * (ABNORMAL) Prothrombin Time (PT) (09/22/2023 7:04 AM SENIOR ACTUARIAL ANALYST) Prothrombin Time, P 16.7(H) 9.4 - 12.5 sec 09/22/2023 7:53 AM SENIOR ACTUARIAL ANALYST DTL INR 1.5 0.9 - 1.1 09/22/2023 7:53 AM SENIOR ACTUARIAL ANALYST DTL Comment: ----ADDITIONAL INFORMATION---- Standard intensity warfarin therapeutic range: 2.0 to 3.0 ?? High intensity warfarin therapeutic range: 2.5 to 3.5 Blood (Blood, Venous) 09/22/2023 7:04 AM SENIOR ACTUARIAL ANALYST 09/22/2023 7:37 AM SENIOR ACTUARIAL ANALYST Anette Hair APRN, C.N.P., D.N.P. LAB B LOOD ADD-ON Performing Organization Address City/[facility]/ZIP Co de Phone Number [facility] [address] [place] [address], [place] DTL [facility] [address] [place] [address] * (ABNORMAL) CBC without Differential (09/22/2023 7:04 AM SENIOR ACTUARIAL ANALYST) Hemoglobin 7.3(L) 13.2 - 16.6 g/dL 09/22/2023 7:47 AM SENIOR ACTUARIAL ANALYST DTL Hematocrit 21.0(L) 38.3 - 48.6 % 09/22/2023 7:47 AM SENIOR ACTUARIAL ANALYST DTL Erythrocytes 2.36(L) 4.35 - 5.65 x10(12)/L 09/22/2023 7:47 AM SENIOR ACTUARIAL ANALYST DTL MCV 89.0 78.2 - 97.9 fL 09/22/2023 7:47 AM SENIOR ACTUARIAL ANALYST DTL RBC Distrib Width 13.1 11.8 - 14.5 % 09/22/2023 7:47 AM SENIOR ACTUARIAL ANALYST DTL Platelet Count 129(L) 135 - 317 x10(9)/L 09/22/2023 8:40 AM SENIOR ACTUARIAL ANALYST DTL Comment:Results confirmed by smear, no clumping or interference seen. Leukocytes 9.2 3.4 - 9.6 x10(9)/L 09/22/2023 8:40 AM SENIOR ACTUARIAL ANALYST DTL Blood (Blood, Venous) 09/22/2023 7:04 AM SENIOR ACTUARIAL ANALYST 09/22/2023 7:37 AM SENIOR ACTUARIAL ANALYST Jenny Jay, B.Ch., B.A.O. LAB BLOOD ADD-ON [facility] [address] [place] [address], [facility] [address] [place] [address] * Type and Screen (with Reflex Antibody ID) (09/22/2023 7:01 AM SENIOR ACTUARIAL ANALYST) Pathologist [facility] ABORh A Neg Not applicable 09/22/2023 2:10 PM SENIOR ACTUARIAL ANALYST STRM Antibody Screen Negative Negative 09/22/2023 2:19 PM SENIOR ACTUARIAL ANALYST STRM Type & Screen Expiration 09/25/2023 23:59 09/22/2023 2:10 PM SENIOR ACTUARIAL ANALYST STRM Testing Location Mercedes DEFAULT 09/22/2023 1:41 PM SENIOR ACTUARIAL ANALYST STRM Blood (Blood, Venous) 09/22/2023 7:01 AM SENIOR ACTUARIAL ANALYST 09/22/2023 1:41 PM SENIOR ACTUARIAL ANALYST Laila Basurto P.A.-C. LAB BLOOD BAN K TEST ORDERABLES [facility] [address] [place] [address], [place] STRM [facility] [address] [place] [address] * (ABNORMAL) Glucose, POCT (09/21/2023 10:52 PM SENIOR ACTUARIAL ANALYST) Glucose, POCT, B 161(H) 70 - 140 mg/dL 09/21/2023 10:57 PM SENIOR ACTUARIAL ANALYST PCLX Site Capillary 09/21/2023 10:57 PM SENIOR ACTUARIAL ANALYST PCLX Last Intake 2-3 hours 09/21/2023 10:57 PM SENIOR ACTUARIAL ANALYST PCLX Blood 09/21/2023 10:5 2 PM SENIOR ACTUARIAL ANALYST 09/21/2023 10:57 PM SENIOR ACTUARIAL ANALYST Unknown Provider LAB POCT ORDERABLES- MANUAL Performing Organization Address City/[facility]/ZIP Co de Phone Number [facility] [address] [place] [address], [place] PCLX [facility] POC [address] [place] [address] * (ABNORMAL) Glucose, POCT (09/21/2023 7:07 PM SENIOR ACTUARIAL ANALYST) Glucose, POCT, B 141(H) 70 - 140 mg/dL 09/21/2023 7:20 PM SENIOR ACTUARIAL ANALYST PCLX Site Capillary 09/21/2023 7:20 PM SENIOR ACTUARIAL ANALYST PCLX Last Intake <1 hour 09/21/2023 7:20 PM SENIOR ACTUARIAL ANALYST PCLX Blood 09/21/2023 7:07 PM SENIOR ACTUARIAL ANALYST 09/21/2023 7:20 PM SENIOR ACTUARIAL ANALYST Unknown Provider LAB POCT ORDERABLES- MANUAL [facility] [address] [place] [address], [place] PCL[place] [facility] POC [address] [place] [address] * (ABNORMAL) Glucose, POCT (09/21/2023 11:27 AM SENIOR ACTUARIAL ANALYST) Glucose, POCT, B 190(H) 70 - 140 mg/dL 09/21/2023 11:29 AM SENIOR ACTUARIAL ANALYST PCLX Site ARTLINE 09/21/2023 11:29 AM SENIOR ACTUARIAL ANALYST PCLX Blood 09/21/2023 11:2 7 AM SENIOR ACTUARIAL ANALYST 09/21/2023 11:29 AM SENIOR ACTUARIAL ANALYST Unknown Provider LAB POCT ORDERABLES- MANUAL Performing Organization Address [facility] Co de Phone Number [facility] [address] [place] [address], [facility] PCLX [facility] POC [address] [place] [address] * (ABNORMAL) Glucose, POCT (09/21/2023 8:50 AM SENIOR ACTUARIAL ANALYST) Glucose, POCT, B 145(H) 70 - 140 mg/dL 09/21/2023 8:52 AM SENIOR ACTUARIAL ANALYST PCLX Site ARTLINE 09/21/2023 8:52 AM SENIOR ACTUARIAL ANALYST PCLX Blood 09/21/2023 8:50 AM SENIOR ACTUARIAL ANALYST 09/21/2023 8:52 AM SENIOR ACTUARIAL ANALYST Unknown Provider LAB POCT ORDERABLES- MANUAL Performing Organization Address [facility] Co de Phone Number [facility] [address] [place] [address], [facility] PCLX [facility] POC [address] [place] [address] * (ABNORMAL) Prothrombin Time (PT) (09/21/2023 7:47 AM SENIOR ACTUARIAL ANALYST) Prothrombin Time, P 13.8(H) 9.4 - 12.5 sec 09/21/2023 7:58 AM SENIOR ACTUARIAL ANALYST STMA INR 1.3 0.9 - 1.1 09/21/2023 7:58 AM SENIOR ACTUARIAL ANALYST STMA Comment: ----ADDITIONAL INFORMATION---- Standard intensity warfarin therapeutic range: 2.0 to 3.0 ?? High intensity warfarin therapeutic range: 2.5 to 3.5 Blood (Blood, Venous) 09/21/2023 7:47 AM SENIOR ACTUARIAL ANALYST 09/21/2023 7:51 AM SENIOR ACTUARIAL ANALYST Anette Hair APRN, C.N.P., PetraNKory LAB B LOOD ADD-ON Performing Organization Address [facility] Co de Phone Number [facility] [address] [place] [address] * Patient Status (09/21/2023 6:35 AM SENIOR ACTUARIAL ANALYST) FIO2 0.21 0.21=AIR 09/21/2023 6:39 AM SENIOR ACTUARIAL ANALYST STMA Spont. breaths/min 18 09/21/2023 6:39 AM SENIOR ACTUARIAL ANALYST STMA Blood 09/21/2023 6:35 AM SENIOR ACTUARIAL ANALYST 09/21/2023 6:39 AM SENIOR ACTUARIAL ANALYST Bryce Wills M.D. LAB BLOOD NON ADD-ON Performing Organization Address [facility] Co de Phone Number [facility] [address] [place] [address] * (ABNORMAL) Blood Gas with Coox, Arterial (09/21/2023 6:35 AM SENIOR ACTUARIAL ANALYST) pO2 67(L) 83 - 108 mm Hg 09/21/2023 6:41 AM SENIOR ACTUARIAL ANALYST STMA pCO2 46 35 - 48 mm Hg 09/21/2023 6:41 AM SENIOR ACTUARIAL ANALYST STMA pH 7.41 7.35 - 7.45 pH 09/21/2023 6:41 AM SENIOR ACTUARIAL ANALYST STMA Base Excess 4(H) -2 - 3 mmol/L 09/21/2023 6:41 AM SENIOR ACTUARIAL ANALYST STMA HCO3 29(H) 22 - 26 mmol/L 09/21/2023 6:41 AM SENIOR ACTUARIAL ANALYST STMA Hemoglobin, Venous 8.2(L) 13.2 - 16.6 g/dL 09/21/2023 6:41 AM SENIOR ACTUARIAL ANALYST STMA O2Hb 92.5(L) 94.0 - 98.0 % 09/21/2023 6:41 AM SENIOR ACTUARIAL ANALYST STMA COHb 2.0 <3.0 % 09/21/2023 6:42 AM SENIOR ACTUARIAL ANALYST STMA MetHb <1.0 <1.5 % 09/21/2023 6:41 AM SENIOR ACTUARIAL ANALYST STMA CtO2 10.8(L) 18.0 - 21.0 vol % 09/21/2023 6:42 AM SENIOR ACTUARIAL ANALYST STMA Arterial Sample Site Art Line 09/21/2023 6:41 AM SENIOR ACTUARIAL ANALYST STMA Comment:Mina's test not don e. Blood (Blood, Arterial) 09/21/2023 6:35 AM SENIOR ACTUARIAL ANALYST 09/21/2023 6:39 AM SENIOR ACTUARIAL ANALYST Bryce Wills M.D. LAB BLOOD NON ADD-ON Performing Organization Address [facility]/ZIP Co de Phone Number [facility] [address] [place] [address], [facility] STMA [facility] [address] [place] [address] * (ABNORMAL) Glucose, POCT (09/21/2023 6:31 AM SENIOR ACTUARIAL ANALYST) Pathologist [facility] Glucose, POCT, B 164(H) 70 - 140 mg/dL 09/21/2023 6:32 AM SENIOR ACTUARIAL ANALYST PCLX Site ARTLINE 09/21/2023 6:32 AM SENIOR ACTUARIAL ANALYST PCLX Blood 09/21/2023 6:31 AM SENIOR ACTUARIAL ANALYST 09/21/2023 6:32 AM SENIOR ACTUARIAL ANALYST Unknown Provider LAB POCT ORDERABLES- MANUAL Performing Organization Address City/[facility]/ZIP Co de Phone Number POC [facility] [address] [place] [address], [facility] PCLX [facility] POC [address] [place] [address] * (ABNORMAL) Basic Metabolic Panel (09/21/2023 5:11 AM SENIOR ACTUARIAL ANALYST) Potassium, P 5.1 3.6 - 5.2 mmol/L 09/21/2023 5:45 AM SENIOR ACTUARIAL ANALYST STMA Sodium, P 135 135 - 145 mmol/L 09/21/2023 5:45 AM SENIOR ACTUARIAL ANALYST STMA Chloride, P 101 98 - 107 mmol/L 09/21/2023 5:45 AM SENIOR ACTUARIAL ANALYST STMA Bicarbonate, P 27 22 - 29 mmol/L 09/21/2023 5:45 AM SENIOR ACTUARIAL ANALYST STMA Anion Gap, P 7 7 - 15 09/21/2023 5:45 AM SENIOR ACTUARIAL ANALYST STMA BUN (Blood Urea Nitrogen), P 33(H) 8 - 24 mg/dL 09/21/2023 5:45 AM SENIOR ACTUARIAL ANALYST STMA Creatinine 2.39(H) 0.74 - 1.35 mg/dL 09/21/2023 5:45 AM SENIOR ACTUARIAL ANALYST STMA Estimated GFR (eGFR) 28(L) >=60 mL/min/BSA 09/21/2023 5:45 AM SENIOR ACTUARIAL ANALYST STMA Comment: Estimated GFR calculated using the 2020 CKD_EPI creatinine equation. Calcium, Total, P 8.9 8.8 - 10.2 mg/dL 09/21/2023 5:45 AM SENIOR ACTUARIAL ANALYST STMA Glucose, P 166(H) 70 - 140 mg/dL 09/21/2023 5:45 AM SENIOR ACTUARIAL ANALYST STMA Blood (Blood, Venous) 09/21/2023 5:11 AM SENIOR ACTUARIAL ANALYST 09/21/2023 5:25 AM SENIOR ACTUARIAL ANALYST Enmanuel Edward P.A.-C. LAB BLOOD ADD-ON [facility] [address] [place] [address], [facility] [address] [place] [address] * (ABNORMAL) Phosphorus Inorganic (09/21/2023 5:11 AM SENIOR ACTUARIAL ANALYST) Phosphorus (Inorganic), S 5.4(H) 2.5 - 4.5 mg/dL 09/21/2023 6:03 AM SENIOR ACTUARIAL ANALYST DTL Blood (Blood, Venous) 09/21/2023 5:11 AM SENIOR ACTUARIAL ANALYST 09/21/2023 5:50 AM SENIOR ACTUARIAL ANALYST Enmanuel Edward P.A.-C. LAB BLOOD ADD-ON [facility] [address] [place] [address], [facility] [address] [place] [address] * (ABNORMAL) Magnesium (09/21/2023 5:11 AM SENIOR ACTUARIAL ANALYST) [facility] Magnesium, S 2.4(H) 1.7 - 2.3 mg/dL 09/21/2023 6:03 AM SENIOR ACTUARIAL ANALYST DTL Blood (Blood, Venous) 09/21/2023 5:11 AM SENIOR ACTUARIAL ANALYST 09/21/2023 5:50 AM SENIOR ACTUARIAL ANALYST Enmanuel Edward P.A.-C. LAB BLOOD ADD-ON [facility] [address] [place] [address], [facility] [address] [place] [address] * (ABNORMAL) CBC without Differential (09/21/2023 5:11 AM SENIOR ACTUARIAL ANALYST) [facility] Hemoglobin 8.1(L) 13.2 - 16.6 g/dL 09/21/2023 6:04 AM SENIOR ACTUARIAL ANALYST DTL Hematocrit 23.3(L) 38.3 - 48.6 % 09/21/2023 6:04 AM SENIOR ACTUARIAL ANALYST DTL Erythrocytes 2.64(L) 4.35 - 5.65 x10(12)/L 09/21/2023 6:04 AM SENIOR ACTUARIAL ANALYST DTL MCV 88.3 78.2 - 97.9 fL 09/21/2023 6:04 AM SENIOR ACTUARIAL ANALYST DTL RBC Distrib Width 13.8 11.8 - 14.5 % 09/21/2023 6:04 AM SENIOR ACTUARIAL ANALYST DTL Platelet Count 139 135 - 317 x10(9)/L 09/21/2023 6:04 AM SENIOR ACTUARIAL ANALYST DTL Leukocytes 12.5(H) 3.4 - 9.6 x10(9)/L 09/21/2023 6:04 AM SENIOR ACTUARIAL ANALYST DTL Blood (Blood, Venous) 09/21/2023 5:11 AM SENIOR ACTUARIAL ANALYST 09/21/2023 5:40 AM SENIOR ACTUARIAL ANALYST Jenny Jay, BKolby., B.A.O. LAB BLOOD ADD-ON [facility] [address] [place] [address], [facility] DTL [facility] [address] [place] [address] * (ABNORMAL) Basic Metabolic Panel (09/21/2023 12:21 AM SENIOR ACTUARIAL ANALYST) Pathologist [facility] Potassium, P 5.3(H) 3.6 - 5.2 mmol/L 09/21/2023 1:08 AM SENIOR ACTUARIAL ANALYST DTL Sodium, P 135 135 - 145 mmol/L 09/21/2023 1:08 AM SENIOR ACTUARIAL ANALYST DTL Chloride, P 102 98 - 107 mmol/L 09/21/2023 1:08 AM SENIOR ACTUARIAL ANALYST DTL Bicarbonate, P 25 22 - 29 mmol/L 09/21/2023 1:08 AM SENIOR ACTUARIAL ANALYST DTL Anion Gap, P 8 7 - 15 09/21/2023 1:08 AM SENIOR ACTUARIAL ANALYST DTL BUN (Blood Urea Nitrogen), P 30(H) 8 - 24 mg/dL 09/21/2023 1:08 AM SENIOR ACTUARIAL ANALYST DTL Creatinine 2.42(H) 0.74 - 1.35 mg/dL 09/21/2023 1:08 AM SENIOR ACTUARIAL ANALYST DTL Estimated GFR (eGFR) 28(L) >=60 mL/min/BSA 09/21/2023 1:08 AM SENIOR ACTUARIAL ANALYST DTL Comment: Estimated GFR calculated using the 2020 CKD_EPI creatinine equation. Calcium, Total, P 8.9 8.8 - 10.2 mg/dL 09/21/2023 1:08 AM SENIOR ACTUARIAL ANALYST DTL Glucose, P 170(H) 70 - 140 mg/dL 09/21/2023 1:08 AM SENIOR ACTUARIAL ANALYST DTL Blood (Blood, Venous) 09/21/2023 12:21 AM SENIOR ACTUARIAL ANALYST 09/21/2023 12:54 AM SENIOR ACTUARIAL ANALYST Enmanuel Edward P.A.-C. LAB BLOOD ADD-ON [facility] [address] [place] [address], [facility] DTL [facility] [address] [place] [address] * (ABNORMAL) Glucose, POCT (09/20/2023 8:33 PM SENIOR ACTUARIAL ANALYST) Glucose, POCT, B 196(H) 70 - 140 mg/dL 09/20/2023 8:39 PM SENIOR ACTUARIAL ANALYST PCLX Blood 09/20/2023 8:33 PM SENIOR ACTUARIAL ANALYST 09/20/2023 8:39 PM SENIOR ACTUARIAL ANALYST Unknown Provider LAB POCT ORDERABLES- MANUAL [facility] [address] [place] [address], [facility] PCLX [facility] [address] [place] [address] * Potassium (09/20/2023 8:33 PM SENIOR ACTUARIAL ANALYST) Pathologist [facility] Potassium, P 5.0 3.6 - 5.2 mmol/L 09/20/2023 8:56 PM SENIOR ACTUARIAL ANALYST STMA Blood (Blood, Venous) 09/20/2023 8:33 PM SENIOR ACTUARIAL ANALYST 09/20/2023 8:38 PM SENIOR ACTUARIAL ANALYST Yenifer Mercado P.A.-C. LAB BLOOD ADD -ON Performing Organization Address City/[facility]/ZIP Co de Phone Number [facility] [address] [place] [address], [facility] STMA [facility] [address] [place] [address] * (ABNORMAL) Glucose, POCT (09/20/2023 4:31 PM SENIOR ACTUARIAL ANALYST) Glucose, POCT, B 182(H) 70 - 140 mg/dL 09/20/2023 4:32 PM SENIOR ACTUARIAL ANALYST PCLX Site ARTLINE 09/20/2023 4:32 PM SENIOR ACTUARIAL ANALYST PCLX Blood 09/20/2023 4:31 PM SENIOR ACTUARIAL ANALYST 09/20/2023 4:32 PM SENIOR ACTUARIAL ANALYST Unknown Provider LAB POCT ORDERABLES- MANUAL [facility] [address] [place] [address], [facility] PCLX [facility] POC [address] [place] [address] * (ABNORMAL) Basic Metabolic Panel (09/20/2023 4:27 PM SENIOR ACTUARIAL ANALYST) Potassium, P 5.5(H) 3.6 - 5.2 mmol/L 09/20/2023 5:03 PM SENIOR ACTUARIAL ANALYST STMA Sodium, P 136 135 - 145 mmol/L 09/20/2023 5:03 PM SENIOR ACTUARIAL ANALYST STMA Chloride, P 102 98 - 107 mmol/L 09/20/2023 5:03 PM SENIOR ACTUARIAL ANALYST STMA Bicarbonate, P 26 22 - 29 mmol/L 09/20/2023 5:03 PM SENIOR ACTUARIAL ANALYST STMA Anion Gap, P 8 7 - 15 09/20/2023 5:03 PM SENIOR ACTUARIAL ANALYST STMA BUN (Blood Urea Nitrogen), P 28(H) 8 - 24 mg/dL 09/20/2023 5:03 PM SENIOR ACTUARIAL ANALYST STMA Creatinine 2.24(H) 0.74 - 1.35 mg/dL 09/20/2023 5:03 PM SENIOR ACTUARIAL ANALYST STMA Estimated GFR (eGFR) 31(L) >=60 mL/min/BSA 09/20/2023 5:03 PM SENIOR ACTUARIAL ANALYST STMA Comment: Estimated GFR calculated using the 2020 CKD_EPI creatinine equation. Calcium, Total, P 9.0 8.8 - 10.2 mg/dL 09/20/2023 5:03 PM SENIOR ACTUARIAL ANALYST STMA Glucose, P 193(H) 70 - 140 mg/dL 09/20/2023 5:03 PM SENIOR ACTUARIAL ANALYST STMA Blood (Blood, Venous) 09/20/2023 4:27 PM SENIOR ACTUARIAL ANALYST 09/20/2023 4:36 PM SENIOR ACTUARIAL ANALYST Yenifer Mercado P.A.-C. LAB BLOOD ADD -ON [facility] [address] [place] [address], [facility] STMA [facility] [address] [place] [address] * (ABNORMAL) Glucose, POCT (09/20/2023 11:51 AM SENIOR ACTUARIAL ANALYST) Pathologist [facility] Glucose, POCT, B 205(H) 70 - 140 mg/dL 09/20/2023 11:53 AM SENIOR ACTUARIAL ANALYST PCLX Site ARTLINE 09/20/2023 11:53 AM SENIOR ACTUARIAL ANALYST PCLX Last Intake 1-2 hours 09/20/2023 11:53 AM SENIOR ACTUARIAL ANALYST PCLX Blood 09/20/2023 11:5 1 AM SENIOR ACTUARIAL ANALYST 09/20/2023 11:53 AM SENIOR ACTUARIAL ANALYST Unknown Provider LAB POCT ORDERABLES- MANUAL [facility]OC [facility] [address] [place] [address], [facility] PCLX [facility] POC [address] [place] [address] * (ABNORMAL) Basic Metabolic Panel (09/20/2023 11:51 AM SENIOR ACTUARIAL ANALYST) Pathologist [facility] Potassium, P 5.4(H) 3.6 - 5.2 mmol/L 09/20/2023 12:20 PM SENIOR ACTUARIAL ANALYST STMA Sodium, P 137 135 - 145 mmol/L 09/20/2023 12:20 PM SENIOR ACTUARIAL ANALYST STMA Chloride, P 103 98 - 107 mmol/L 09/20/2023 12:20 PM SENIOR ACTUARIAL ANALYST STMA Bicarbonate, P 23 22 - 29 mmol/L 09/20/2023 12:20 PM SENIOR ACTUARIAL ANALYST STMA Anion Gap, P 11 7 - 15 09/20/2023 12:20 PM SENIOR ACTUARIAL ANALYST STMA BUN (Blood Urea Nitrogen), P 27(H) 8 - 24 mg/dL 09/20/2023 12:20 PM SENIOR ACTUARIAL ANALYST STMA Creatinine 2.12(H) 0.74 - 1.35 mg/dL 09/20/2023 12:20 PM SENIOR ACTUARIAL ANALYST STMA Estimated GFR (eGFR) 33(L) >=60 mL/min/BSA 09/20/2023 12:20 PM SENIOR ACTUARIAL ANALYST STMA Comment: Estimated GFR calculated using the 2020 CKD_EPI creatinine equation. Calcium, Total, P 9.2 8.8 - 10.2 mg/dL 09/20/2023 12:20 PM SENIOR ACTUARIAL ANALYST STMA Glucose, P 230(H) 70 - 140 mg/dL 09/20/2023 12:20 PM SENIOR ACTUARIAL ANALYST STMA Blood (Blood, Venous) 09/20/2023 11:51 AM SENIOR ACTUARIAL ANALYST 09/20/2023 12:00 PM SENIOR ACTUARIAL ANALYST Lobito Melgar APRN, C.N.P., M.S.N. L AB BLOOD ADD-ON Performing Organization Address City/[facility] Co de Phone Number [facility] [address] [place] [address], [facility] [address] [place] [address] * (ABNORMAL) Glucose, POCT (09/20/2023 6:30 AM SENIOR ACTUARIAL ANALYST) Pathologist [facility] Glucose, POCT, B 169(H) 70 - 140 mg/dL 09/20/2023 6:32 AM SENIOR ACTUARIAL ANALYST PCLX Blood 09/20/2023 6:30 AM SENIOR ACTUARIAL ANALYST 09/20/2023 6:33 AM SENIOR ACTUARIAL ANALYST Unknown Provider LAB POCT ORDERABLES- MANUAL Performing Organization Address [facility] Co de Phone Number POC [facility] [address] [place] [address], [facility] PCLX [facility] POC [address] [place] [address] * Lactate, Whole Blood (09/20/2023 4:11 AM SENIOR ACTUARIAL ANALYST) [facility] Lactate, B 1.5 0.5 - 2.2 mmol/L 09/20/2023 4:18 AM SENIOR ACTUARIAL ANALYST STMA Blood (Blood, Arterial) 09/20/2023 4:11 AM SENIOR ACTUARIAL ANALYST 09/20/2023 4:15 AM SENIOR ACTUARIAL ANALYST Lobito Melgar APRN, C.N.P., M.S.N. L AB BLOOD NON ADD-ON Performing Organization Address City/[facility] Co de Phone Number [facility] [address] [place], [place] [address] [place] [address] [address] [place] [address] * Patient Status (09/20/2023 4:11 AM SENIOR ACTUARIAL ANALYST) O2 Flow 2.0 L/min 09/20/2023 4:15 AM SENIOR ACTUARIAL ANALYST STMA Device NC 09/20/2023 4:15 AM SENIOR ACTUARIAL ANALYST STMA Spont. breaths/min 14 09/20/2023 4:15 AM SENIOR ACTUARIAL ANALYST STMA Blood 09/20/2023 4:11 AM SENIOR ACTUARIAL ANALYST 09/20/2023 4:15 AM SENIOR ACTUARIAL ANALYST Jenny Jay, RavenCh., B.A.O. LAB BLOOD NON ADD-ON Performing Organization Address City/[facility]/ZIP Co de Phone Number [facility] [address] [facility] [address] [place] [address] * (ABNORMAL) Blood Gas without Coox, Arterial (09/20/2023 4:11 AM SENIOR ACTUARIAL ANALYST) pO2 79(L) 83 - 108 mm Hg 09/20/2023 4:18 AM SENIOR ACTUARIAL ANALYST STMA pCO2 43 35 - 48 mm Hg 09/20/2023 4:18 AM SENIOR ACTUARIAL ANALYST STMA pH 7.37 7.35 - 7.45 pH 09/20/2023 4:18 AM SENIOR ACTUARIAL ANALYST STMA Base Excess 0 -2 - 3 mmol/L 09/20/2023 4:18 AM SENIOR ACTUARIAL ANALYST STMA HCO3 25 22 - 26 mmol/L 09/20/2023 4:18 AM SENIOR ACTUARIAL ANALYST STMA Arterial Sample Site Art Line 09/20/2023 4:18 AM SENIOR ACTUARIAL ANALYST STMA Comment:Mina's test not don e. Blood (Blood, Arterial) 09/20/2023 4:11 AM SENIOR ACTUARIAL ANALYST 09/20/2023 4:15 AM SENIOR ACTUARIAL ANALYST Jenny Jay, Nicky.Ch., B.A.O. LAB BLOOD NON ADD-ON Performing Organization Address City/[facility]/ZIP Co de Phone Number [facility] [address] STMA [facility] [address] [place] [address] * (ABNORMAL) CBC without Differential (09/20/2023 4:09 AM SENIOR ACTUARIAL ANALYST) Hemoglobin 9.1(L) 13.2 - 16.6 g/dL 09/20/2023 4:51 AM SENIOR ACTUARIAL ANALYST DTL Hematocrit 25.8(L) 38.3 - 48.6 % 09/20/2023 4:51 AM SENIOR ACTUARIAL ANALYST DTL Erythrocytes 2.99(L) 4.35 - 5.65 x10(12)/L 09/20/2023 4:51 AM SENIOR ACTUARIAL ANALYST DTL MCV 86.3 78.2 - 97.9 fL 09/20/2023 4:51 AM SENIOR ACTUARIAL ANALYST DTL RBC Distrib Width 13.6 11.8 - 14.5 % 09/20/2023 4:51 AM SENIOR ACTUARIAL ANALYST DTL Platelet Count 179 135 - 317 x10(9)/L 09/20/2023 4:51 AM SENIOR ACTUARIAL ANALYST DTL Leukocytes 11.3(H) 3.4 - 9.6 x10(9)/L 09/20/2023 4:51 AM SENIOR ACTUARIAL ANALYST DTL Blood (Blood, Venous) 09/20/2023 4:09 AM SENIOR ACTUARIAL ANALYST 09/20/2023 4:42 AM SENIOR ACTUARIAL ANALYST Jenny Jay, B.Ch., B.A.O. [place] [address], [facility] [place] [address] * (ABNORMAL) Basic Metabolic Panel (09/20/2023 4:09 AM SENIOR ACTUARIAL ANALYST) Pathologist [facility] Potassium, S 5.2 3.6 - 5.2 mmol/L 09/20/2023 5:12 AM SENIOR ACTUARIAL ANALYST DTL Sodium, S 142 135 - 145 mmol/L 09/20/2023 5:12 AM SENIOR ACTUARIAL ANALYST DTL Chloride, S 107 98 - 107 mmol/L 09/20/2023 5:12 AM SENIOR ACTUARIAL ANALYST DTL Bicarbonate, S 23 22 - 29 mmol/L 09/20/2023 5:12 AM SENIOR ACTUARIAL ANALYST DTL Anion Gap 12 7 - 15 09/20/2023 5:12 AM SENIOR ACTUARIAL ANALYST DTL BUN (Blood Urea Nitrogen), S 23 8 - 24 mg/dL 09/20/2023 5:12 AM SENIOR ACTUARIAL ANALYST DTL Creatinine 1.88(H) 0.74 - 1.35 mg/dL 09/20/2023 5:12 AM SENIOR ACTUARIAL ANALYST DTL Estimated GFR (eGFR) 38(L) >=60 mL/min/BSA 09/20/2023 5:12 AM SENIOR ACTUARIAL ANALYST DTL Comment: Estimated GFR calculated using the 2020 CKD_EPI creatinine equation. Calcium, Total, S 9.6 8.8 - 10.2 mg/dL 09/20/2023 5:12 AM SENIOR ACTUARIAL ANALYST DTL Glucose, S 162(H) 70 - 140 mg/dL 09/20/2023 5:12 AM SENIOR ACTUARIAL ANALYST DTL Blood (Blood, Venous) 09/20/2023 4:09 AM SENIOR ACTUARIAL ANALYST 09/20/2023 4:57 AM SENIOR ACTUARIAL ANALYST Jenny Jay, Nicky.Ch., B.A.O. LAB BLOOD ADD-ON Performing Organization Address City/[facility]/ZIP Co de Phone Number [facility] [address] [place] [address] * APTT (Activated Partial Thromboplastin Time) (09/20/2023 4:09 AM SENIOR ACTUARIAL ANALYST) Activated Partial Thrombopl Time, P 26 25 - 37 sec 09/20/2023 5:19 AM SENIOR ACTUARIAL ANALYST DTL Blood (Blood, Venous) 09/20/2023 4:09 AM SENIOR ACTUARIAL ANALYST 09/20/2023 4:43 AM SENIOR ACTUARIAL ANALYST Nicky Black.Ch., B.A.O. LAB BLOOD ADD-ON Performing Organization Address City/[facility]/ZIP Co de Phone Number [facility] [address] [place] [place] [address] * Prothrombin Time (PT) (09/20/2023 4:09 AM SENIOR ACTUARIAL ANALYST) Prothrombin Time, P 12.2 9.4 - 12.5 sec 09/20/2023 5:19 AM SENIOR ACTUARIAL ANALYST DTL INR 1.1 0.9 - 1.1 09/20/2023 5:19 AM SENIOR ACTUARIAL ANALYST DTL Comment: ----ADDITIONAL INFORMATION---- Standard intensity warfarin therapeutic range: 2.0 to 3.0 ?? High intensity warfarin therapeutic range: 2.5 to 3.5 Blood (Blood, Venous) 09/20/2023 4:09 AM SENIOR ACTUARIAL ANALYST 09/20/2023 4:43 AM SENIOR ACTUARIAL ANALYST Jenny Jay, Nicky.Ch., B.A.O. LAB BLOOD ADD-ON Performing Organization Address City/[facility]/ZIP Co de Phone Number [facility] [address] [place] [address] * (ABNORMAL) Magnesium (09/20/2023 4:09 AM SENIOR ACTUARIAL ANALYST) Magnesium, S 2.7(H) 1.7 - 2.3 mg/dL 09/20/2023 5:12 AM SENIOR ACTUARIAL ANALYST DTL Blood (Blood, Venous) 09/20/2023 4:09 AM SENIOR ACTUARIAL ANALYST 09/20/2023 4:57 AM SENIOR ACTUARIAL ANALYST Nicky Black.Ch., B.A.O. LAB BLOOD ADD-ON Performing Organization Address City/[facility]/ZIP Co de Phone Number [facility] 200 [place] [address] * DX Chest Portable with AM Rounds 1 View (09/20/2023 3:33 AM SENIOR ACTUARIAL ANALYST) Anatomical Region Laterality Modality Chest, Thoracic RST LOS, Tho racic ARZ LOS, Thoracic FLA LOS N/A Digital Radiography 09/20/2023 5:18 AM SENIOR ACTUARIAL ANALYST Impressions 09/20/2023 5:20 AM SENIOR ACTUARIAL ANALYST Compared to 09/19/2023. Extubation. Removal of right IJ SGC, sheath remains. Slightly decreased lung volumes. No other significant change. Pulmonary vascular congestion. Bibasilar atelectasis. No definite pneumothorax. Trace pneumomediastinum. Enlarged cardiac silhouette. Retrocardiac atelectasis/consolidation. Azygous fissure. Sternotomy. Mediastinal clips and drains. Loop recorder. Narrative 09/20/2023 5:20 AM SENIOR ACTUARIAL ANALYST EXAM: ??DX CHEST PORTABLE WITH AM [...] Risk Score, Random, Urine (09/20/2023 3:24 AM SENIOR ACTUARIAL ANALYST) TIMP2/IGFBP7 MANJEET Risk Score, U 0.45(H) <0.30 (ng/mL)(2) /1000 09/20/2023 4:12 AM SENIOR ACTUARIAL ANALYST STMA Comment: ----ADDITIONAL INFORMATION---- <0.30= <0.30 is considered low risk for acute kidney injury. 0.30-2.00= 0.30-2.00 indicates increased risk for acute kidney injury. >2.00= >2.00 indicates high risk for acute kidney injury. Urine (Urine, Midstream) 09/20/2023 3:24 AM SENIOR ACTUARIAL ANALYST 09/20/2023 3:24 AM SENIOR ACTUARIAL ANALYST Jenny Jay, Lucille, B.A.O. LAB URINE ORDERABLES [facility] [address] [place] [address], [facility] STMA [facility] 200 [place] [address] * Glucose, POCT (09/20/2023 1:17 AM SENIOR ACTUARIAL ANALYST) Glucose, POCT, B 136 70 - 140 mg/dL 09/20/2023 1:19 AM SENIOR ACTUARIAL ANALYST PCLX Site ARTLINE 09/20/2023 1:19 AM SENIOR ACTUARIAL ANALYST PCLX Blood 09/20/2023 1:17 AM SENIOR ACTUARIAL ANALYST 09/20/2023 1:19 AM SENIOR ACTUARIAL ANALYST Unknown Provider LAB POCT ORDERABLES- MANUAL Performing Organization Address City/[facility]/ZIP Co de Phone Number POC [facility] 200 [place] [address], [facility] PCLX [facility] POC 200 [place] [address] * Glucose, POCT (09/19/2023 11:58 PM SENIOR ACTUARIAL ANALYST) Glucose, POCT, B 133 70 - 140 mg/dL 09/19/2023 11:59 PM SENIOR ACTUARIAL ANALYST PCLX Site ARTLINE 09/19/2023 11:59 PM SENIOR ACTUARIAL ANALYST PCLX Blood 09/19/2023 11:5 8 PM SENIOR ACTUARIAL ANALYST 09/19/2023 11:59 PM SENIOR ACTUARIAL ANALYST Unknown Provider LAB POCT ORDERABLES- MANUAL POC [facility] [address] [place] [address], [facility] PCLX [facility] POC 200 [place] [address] * (ABNORMAL) Glucose, POCT (09/19/2023 11:20 PM SENIOR ACTUARIAL ANALYST) Glucose, POCT, B 148(H) 70 - 140 mg/dL 09/19/2023 11:22 PM SENIOR ACTUARIAL ANALYST PCLX Site ARTLINE 09/19/2023 11:22 PM SENIOR ACTUARIAL ANALYST PCLX Blood 09/19/2023 11:2 0 PM SENIOR ACTUARIAL ANALYST 09/19/2023 11:22 PM SENIOR ACTUARIAL ANALYST Unknown Provider LAB POCT ORDERABLES- MANUAL [facility]OC [facility] [address] [place] [address], [facility] PCLX [facility] 200 [place] [address] * (ABNORMAL) Lactate, Whole Blood (09/19/2023 10:58 PM SENIOR ACTUARIAL ANALYST) Pathologist [facility] Lactate, B 2.6(H) 0.5 - 2.2 mmol/L 09/19/2023 11:05 PM SENIOR ACTUARIAL ANALYST STMA Blood (Blood, Arterial) 09/19/2023 10:58 PM SENIOR ACTUARIAL ANALYST 09/19/2023 11:04 PM SENIOR ACTUARIAL ANALYST Lobito Melgar APRN C.N.P., M.S.N. L AB BLOOD NON ADD-ON Performing Organization Address City/[facility]/ZIP Co de Phone Number [facility] [address] [place] [address], [facility] 200 [place] [address] * (ABNORMAL) Glucose, POCT (09/19/2023 10:27 PM SENIOR ACTUARIAL ANALYST) Glucose, POCT, B 160(H) 70 - 140 mg/dL 09/19/2023 10:30 PM SENIOR ACTUARIAL ANALYST PCLX Site ARTLINE 09/19/2023 10:30 PM SENIOR ACTUARIAL ANALYST PCLX Blood 09/19/2023 10:2 7 PM SENIOR ACTUARIAL ANALYST 09/19/2023 10:30 PM SENIOR ACTUARIAL ANALYST Unknown Provider LAB POCT ORDERABLES- MANUAL POC [facility] [address] [place] [address], [facility] PCLX [facility] POC 200 [place] [address] * (ABNORMAL) Glucose, POCT (09/19/2023 9:24 PM SENIOR ACTUARIAL ANALYST) Glucose, POCT, B 194(H) 70 - 140 mg/dL 09/19/2023 9:25 PM SENIOR ACTUARIAL ANALYST PCLX Site ARTLINE 09/19/2023 9:25 PM SENIOR ACTUARIAL ANALYST PCLX Blood 09/19/2023 9:24 PM SENIOR ACTUARIAL ANALYST 09/19/2023 9:25 PM SENIOR ACTUARIAL ANALYST Unknown Provider LAB POCT ORDERABLES- MANUAL Performing Organization Address City/[facility] Co de Phone Number [facility] [address] [place] [address], [facility] PCLX [facility] POC [address] [place] [address] * ECG 12 Lead (09/19/2023 8:14 PM SENIOR ACTUARIAL ANALYST) Pathologist [facility] Ventricular Rate ECG/Min 93 BPM MUSE DE Interval 134 ms MUSE QRSD Interval 84 ms MUSE QT Interval 374 ms MUSE QTC Interval 465 ms MUSE P [place] 74 degrees MUSE R [place] 14 degrees MUSE T Wave [place] 58 degrees MUSE 09/19/2023 8:14 PM SENIOR ACTUARIAL ANALYST 09/19/2023 8:36 PM SENIOR ACTUARIAL ANALYST Impressions MUSE - 09/19/2023 8:36 PM SENIOR ACTUARIAL ANALYST Normal sinus rhythm Nonspecific ST and [...] B.Ch., B.A.O. ECG ORDERABLES Performing Organization Address City/[facility]/ZIP Co de Phone Number MUSE NA * (ABNORMAL) Glucose, POCT (09/19/2023 7:58 PM SENIOR ACTUARIAL ANALYST) Glucose, POCT, B 226(H) 70 - 140 mg/dL 09/19/2023 8:00 PM SENIOR ACTUARIAL ANALYST PCLX Site ARTLINE 09/19/2023 8:00 PM SENIOR ACTUARIAL ANALYST PCLX Blood 09/19/2023 7:58 PM SENIOR ACTUARIAL ANALYST 09/19/2023 8:00 PM SENIOR ACTUARIAL ANALYST Unknown Provider LAB POCT ORDERABLES- MANUAL Performing Organization Address [facility] Co de Phone Number POC [facility] [address] [place] [address], [facility] PCLX [facility] POC [address] [place] [address] * (ABNORMAL) Lactate, Whole Blood (09/19/2023 7:43 PM SENIOR ACTUARIAL ANALYST) Pathologist [facility] Lactate, B 6.6(H) 0.5 - 2.2 mmol/L 09/19/2023 7:50 PM SENIOR ACTUARIAL ANALYST STMA Blood (Blood, Arterial) 09/19/2023 7:43 PM SENIOR ACTUARIAL ANALYST 09/19/2023 7:49 PM SENIOR ACTUARIAL ANALYST Lobito Melgar APRN, C.N.P., M.S.N. L AB BLOOD NON ADD-ON Performing Organization Address City/[facility] Co de Phone Number [facility] [address] [place] [address], [facility] STMA [facility] [address] [place] [address] * Patient Status (09/19/2023 7:43 PM SENIOR ACTUARIAL ANALYST) Pathologist [facility] O2 Flow 5.0L L/min 09/19/2023 7:49 PM SENIOR ACTUARIAL ANALYST STMA Device NC 09/19/2023 7:49 PM SENIOR ACTUARIAL ANALYST STMA Spont. breaths/min 21 09/19/2023 7:49 PM SENIOR ACTUARIAL ANALYST STMA Blood 09/19/2023 7:43 PM SENIOR ACTUARIAL ANALYST 09/19/2023 7:49 PM SENIOR ACTUARIAL ANALYST Susumerle Fajardo LAB BLOOD NON ADD-ON Performing Organization Address City/[facility]/ZIP Co de Phone Number [facility] [address] [place], [place] [address] [place] [address] 200 [place] [address] * (ABNORMAL) Lactate (09/19/2023 7:43 PM SENIOR ACTUARIAL ANALYST) Pathologist [facility] Lactate, P 7.0(H) 0.5 - 2.2 mmol/L 09/19/2023 8:04 PM SENIOR ACTUARIAL ANALYST STMA Blood (Blood, Venous) 09/19/2023 7:43 PM SENIOR ACTUARIAL ANALYST 09/19/2023 7:49 PM SENIOR ACTUARIAL ANALYST Susu R Tana LAB BLOOD NON ADD-ON Performing Organization Address [facility] Co de Phone Number [facility] [address] [place], [place] [address] [place] [address] 200 [place] [address] * (ABNORMAL) Blood Gas with Coox, Arterial (09/19/2023 7:43 PM SENIOR ACTUARIAL ANALYST) Pathologist [facility] pO2 157(H) 83 - 108 mm Hg 09/19/2023 7:50 PM SENIOR ACTUARIAL ANALYST STMA pCO2 42 35 - 48 mm Hg 09/19/2023 7:50 PM SENIOR ACTUARIAL ANALYST STMA pH 7.25(L) 7.35 - 7.45 pH 09/19/2023 7:50 PM SENIOR ACTUARIAL ANALYST STMA Base Excess -9(L) -2 - 3 mmol/L 09/19/2023 7:50 PM SENIOR ACTUARIAL ANALYST STMA HCO3 19(L) 22 - 26 mmol/L 09/19/2023 7:50 PM SENIOR ACTUARIAL ANALYST STMA Hemoglobin, Venous 10.1(L) 13.2 - 16.6 g/dL 09/19/2023 7:50 PM SENIOR ACTUARIAL ANALYST STMA O2Hb 97.3 94.0 - 98.0 % 09/19/2023 7:50 PM SENIOR ACTUARIAL ANALYST STMA COHb 2.0 <3.0 % 09/19/2023 7:50 PM SENIOR ACTUARIAL ANALYST STMA MetHb 1.0 <1.5 % 09/19/2023 7:50 PM SENIOR ACTUARIAL ANALYST STMA CtO2 14.1(L) 18.0 - 21.0 vol % 09/19/2023 7:50 PM SENIOR ACTUARIAL ANALYST STMA Arterial Sample Site Art Line 09/19/2023 7:50 PM SENIOR ACTUARIAL ANALYST STMA Comment:Mina's test not don e. Blood (Blood, Arterial) 09/19/2023 7:43 PM SENIOR ACTUARIAL ANALYST 09/19/2023 7:49 PM SENIOR ACTUARIAL ANALYST Susu Fajardo LAB BLOOD NON ADD-ON [facility] 200 [place] [address], [facility] 200 [place] [address] * (ABNORMAL) Glucose, POCT (09/19/2023 6:57 PM SENIOR ACTUARIAL ANALYST) Glucose, POCT, B 224(H) 70 - 140 mg/dL 09/19/2023 7:00 PM SENIOR ACTUARIAL ANALYST PCLX Site ARTLINE 09/19/2023 7:00 PM SENIOR ACTUARIAL ANALYST PCLX Blood 09/19/2023 6:57 PM SENIOR ACTUARIAL ANALYST 09/19/2023 7:00 PM SENIOR ACTUARIAL ANALYST Unknown Provider LAB POCT ORDERABLES- MANUAL [facility]OC [facility] [address] [place] [address], [facility] PCLX [facility] POC 200 [place] [address] * (ABNORMAL) Glucose, POCT (09/19/2023 6:23 PM SENIOR ACTUARIAL ANALYST) Glucose, POCT, B 217(H) 70 - 140 mg/dL 09/19/2023 6:24 PM SENIOR ACTUARIAL ANALYST PCLX Site ARTLINE 09/19/2023 6:24 PM SENIOR ACTUARIAL ANALYST PCLX Blood 09/19/2023 6:23 PM SENIOR ACTUARIAL ANALYST 09/19/2023 6:25 PM SENIOR ACTUARIAL ANALYST Unknown Provider LAB POCT ORDERABLES- MANUAL POC [facility] [address] [place] [address], [place] PCLX [facility] POC [address] [place] [address] * DX Chest Portable 1 View (09/19/2023 5:45 PM SENIOR ACTUARIAL ANALYST) Anatomical Region Laterality Modality Chest, Thoracic RST LOS, Tho racic ARZ LOS, Thoracic FLA LOS N/A Digital Radiography 09/19/2023 7:33 PM SENIOR ACTUARIAL ANALYST Impressions 09/19/2023 8:26 PM SENIOR ACTUARIAL ANALYST Interval retraction of the endotracheal tube, with tip now in the mid thoracic trachea. Otherwise no significant changes since 2:23 PM. Right IJ Inlet-Sepideh catheter with tip in the main pulmonary artery. Sternotomy wires and mediastinal surgical clips. Aortic valve replacement. Mediastinal drains. Mild bilateral interstitial thickening and perihilar opacities. No definite pleural effusion. Aortic calcifications. Narrative 09/19/2023 8:26 PM SENIOR ACTUARIAL ANALYST EXAM: ??DX CHEST PORTABLE 1 VIEW [...] * Transfuse Platelets : (09/19/2023 5:19 PM SENIOR ACTUARIAL ANALYST) Radha Iqbal M.D. BLOOD TRANSFUSION OR DERABLES * Patient Status (09/19/2023 5:19 PM SENIOR ACTUARIAL ANALYST) FIO2 0.50 0.21=AIR 09/19/2023 5:22 PM SENIOR ACTUARIAL ANALYST STMA Device Vent 09/19/2023 5:22 PM SENIOR ACTUARIAL ANALYST STMA Spont. breaths/min 21 09/19/2023 5:22 PM SENIOR ACTUARIAL ANALYST STMA Blood 09/19/2023 5:19 PM SENIOR ACTUARIAL ANALYST 09/19/2023 5:22 PM SENIOR ACTUARIAL ANALYST Jenny Jay, Lucille, B.A.O. LAB BLOOD NON ADD-ON Performing Organization Address City/[facility] Co de Phone Number [facility] [address] [facility] 200 [place] [address] * Fibrinogen (09/19/2023 5:19 PM SENIOR ACTUARIAL ANALYST) Fibrinogen, P 269 200 - 393 mg/dL 09/19/2023 5:30 PM SENIOR ACTUARIAL ANALYST STMA Blood (Blood, Venous) 09/19/2023 5:19 PM SENIOR ACTUARIAL ANALYST 09/19/2023 5:22 PM SENIOR ACTUARIAL ANALYST Jenny Jay, RavenCh., B.A.O. LAB BLOOD ADD-ON Performing Organization Address [facility] Co de Phone Number [facility] 200 [place] [address], [facility] 200 [place] [address] * Prothrombin Time (PT) (09/19/2023 5:19 PM SENIOR ACTUARIAL ANALYST) Prothrombin Time, P 12.4 9.4 - 12.5 sec 09/19/2023 5:30 PM SENIOR ACTUARIAL ANALYST STMA INR 1.1 0.9 - 1.1 09/19/2023 5:30 PM SENIOR ACTUARIAL ANALYST STMA Comment: ----ADDITIONAL INFORMATION---- Standard intensity warfarin therapeutic range: 2.0 to 3.0 ?? High intensity warfarin therapeutic range: 2.5 to 3.5 Blood (Blood, Venous) 09/19/2023 5:19 PM SENIOR ACTUARIAL ANALYST 09/19/2023 5:22 PM SENIOR ACTUARIAL ANALYST Jenny Jay B.Ch., B.A.O. LAB BLOOD ADD-ON Performing Organization Address [facility] Co de Phone Number [facility] 200 [place] [address], [facility] 200 [place] [address] * APTT (Activated Partial Thromboplastin Time) (09/19/2023 5:19 PM SENIOR ACTUARIAL ANALYST) [facility] Activated Partial Thrombopl Time, P 31 25 - 37 sec 09/19/2023 5:32 PM SENIOR ACTUARIAL ANALYST STMA Blood (Blood, Venous) 09/19/2023 5:19 PM SENIOR ACTUARIAL ANALYST 09/19/2023 5:22 PM SENIOR ACTUARIAL ANALYST Jenny Jay B.Ch., B.A.O. LAB BLOOD ADD-ON Performing Organization Address [facility] de Phone Number [facility] [address] [place] [address] * (ABNORMAL) CBC without Differential (09/19/2023 5:19 PM SENIOR ACTUARIAL ANALYST) [facility] Hemoglobin 9.5(L) 13.2 - 16.6 g/dL 09/19/2023 5:24 PM SENIOR ACTUARIAL ANALYST STMA Hematocrit 27.5(L) 38.3 - 48.6 % 09/19/2023 5:24 PM SENIOR ACTUARIAL ANALYST STMA Erythrocytes 3.14(L) 4.35 - 5.65 x10(12)/L 09/19/2023 5:24 PM SENIOR ACTUARIAL ANALYST STMA MCV 87.6 78.2 - 97.9 fL 09/19/2023 5:24 PM SENIOR ACTUARIAL ANALYST STMA RBC Distrib Width 13.3 11.8 - 14.5 % 09/19/2023 5:24 PM SENIOR ACTUARIAL ANALYST STMA Platelet Count 163 135 - 317 x10(9)/L 09/19/2023 5:24 PM SENIOR ACTUARIAL ANALYST STMA Leukocytes 13.3(H) 3.4 - 9.6 x10(9)/L 09/19/2023 5:24 PM SENIOR ACTUARIAL ANALYST STMA Blood (Blood, Venous) 09/19/2023 5:19 PM SENIOR ACTUARIAL ANALYST 09/19/2023 5:22 PM SENIOR ACTUARIAL ANALYST Jenny Jay, RavenCh., B.A.O. LAB BLOOD ADD-ON Performing Organization Address City/[facility] Co de Phone Number [facility] [address] [place], [place] [address] [place] [address] 200 [place] [address] * (ABNORMAL) Lactate, Whole Blood (09/19/2023 5:19 PM SENIOR ACTUARIAL ANALYST) Lactate, B 2.9(H) 0.5 - 2.2 mmol/L 09/19/2023 5:27 PM SENIOR ACTUARIAL ANALYST STMA Blood (Blood, Arterial) 09/19/2023 5:19 PM SENIOR ACTUARIAL ANALYST 09/19/2023 5:22 PM SENIOR ACTUARIAL ANALYST Jenny Jay, RavenCh., B.A.O. LAB BLOOD NON ADD-ON Performing Organization Address [facility] de Phone Number [facility] [address] [place] [address], [facility] 200 [place] [address] * (ABNORMAL) Blood Gas with Coox, Arterial (09/19/2023 5:19 PM SENIOR ACTUARIAL ANALYST) pO2 192(H) 83 - 108 mm Hg 09/19/2023 5:27 PM SENIOR ACTUARIAL ANALYST STMA pCO2 36 35 - 48 mm Hg 09/19/2023 5:27 PM SENIOR ACTUARIAL ANALYST STMA pH 7.37 7.35 - 7.45 pH 09/19/2023 5:27 PM SENIOR ACTUARIAL ANALYST STMA Base Excess -4(L) -2 - 3 mmol/L 09/19/2023 5:27 PM SENIOR ACTUARIAL ANALYST STMA HCO3 20(L) 22 - 26 mmol/L 09/19/2023 5:27 PM SENIOR ACTUARIAL ANALYST STMA Hemoglobin, Venous 9.9(L) 13.2 - 16.6 g/dL 09/19/2023 5:27 PM SENIOR ACTUARIAL ANALYST STMA O2Hb 95.6 94.0 - 98.0 % 09/19/2023 5:27 PM SENIOR ACTUARIAL ANALYST STMA COHb 1.1 <3.0 % 09/19/2023 5:27 PM SENIOR ACTUARIAL ANALYST STMA MetHb 2.2(H) <1.5 % 09/19/2023 5:27 PM SENIOR ACTUARIAL ANALYST STMA CtO2 13.7(L) 18.0 - 21.0 vol % 09/19/2023 5:27 PM SENIOR ACTUARIAL ANALYST STMA Arterial Sample Site Art Line 09/19/2023 5:27 PM SENIOR ACTUARIAL ANALYST STMA Comment:Mina's test not don e. Blood (Blood, Arterial) 09/19/2023 5:19 PM SENIOR ACTUARIAL ANALYST 09/19/2023 5:22 PM SENIOR ACTUARIAL ANALYST Jenny Jay, B.Ch., B.A.O. LAB BLOOD NON ADD-ON [facility] [address] [place] [address], [facility] [address] [place] [address] * (ABNORMAL) Basic Metabolic Panel (09/19/2023 5:19 PM SENIOR ACTUARIAL ANALYST) Potassium, P 4.6 3.6 - 5.2 mmol/L 09/19/2023 5:38 PM SENIOR ACTUARIAL ANALYST STMA Sodium, P 140 135 - 145 mmol/L 09/19/2023 5:38 PM SENIOR ACTUARIAL ANALYST STMA Chloride, P 107 98 - 107 mmol/L 09/19/2023 5:38 PM SENIOR ACTUARIAL ANALYST STMA Bicarbonate, P 20(L) 22 - 29 mmol/L 09/19/2023 5:38 PM SENIOR ACTUARIAL ANALYST STMA Anion Gap, P 13 7 - 15 09/19/2023 5:38 PM SENIOR ACTUARIAL ANALYST STMA BUN (Blood Urea Nitrogen), P 19 8 - 24 mg/dL 09/19/2023 5:38 PM SENIOR ACTUARIAL ANALYST STMA Creatinine 1.39(H) 0.74 - 1.35 mg/dL 09/19/2023 5:38 PM SENIOR ACTUARIAL ANALYST STMA Estimated GFR (eGFR) 54(L) >=60 mL/min/BSA 09/19/2023 5:38 PM SENIOR ACTUARIAL ANALYST STMA Comment: Estimated GFR calculated using the 2020 CKD_EPI creatinine equation. Calcium, Total, P 10.7(H) 8.8 - 10.2 mg/dL 09/19/2023 5:38 PM SENIOR ACTUARIAL ANALYST STMA Glucose, P 201(H) 70 - 140 mg/dL 09/19/2023 5:38 PM SENIOR ACTUARIAL ANALYST STMA Blood (Blood, Venous) 09/19/2023 5:19 PM SENIOR ACTUARIAL ANALYST 09/19/2023 5:22 PM SENIOR ACTUARIAL ANALYST Jenny Jay, B.Ch., B.A.O. LAB BLOOD ADD-ON [facility] 200 [place] [address], [facility] 200 [place] [address] * (ABNORMAL) Cystatin C with Estimated GFR (09/19/2023 5:19 PM SENIOR ACTUARIAL ANALYST) Pathologist [facility] eGFR by Cystatin C 59(L) >60 mL/min/BSA 09/19/2023 8:00 PM SENIOR ACTUARIAL ANALYST DTL Comment: Estimated GFR calculated using [...] 0.67 - 1.21 mg/L 09/19/2023 8:00 PM SENIOR ACTUARIAL ANALYST DTL Blood (Blood, Arterial Line) 09/19/2023 5:19 PM SENIOR ACTUARIAL ANALYST 09/19/2023 5:53 PM SENIOR ACTUARIAL ANALYST Zoraida Salmeron M.D., Ph.D. LAB BLOOD AD D-ON Performing Organization Address City/[facility]/ZIP Co de Phone Number [facility] [address] [place] [address], [facility] DTL [facility] [address] [place] [address] * (ABNORMAL) Platelet Count (09/19/2023 4:20 PM SENIOR ACTUARIAL ANALYST) Platelet Count 94(L) 135 - 317 x10(9)/L 09/19/2023 4:27 PM SENIOR ACTUARIAL ANALYST [facility] Blood (Blood, Arterial Line) 09/19/2023 4:20 PM SENIOR ACTUARIAL ANALYST 09/19/2023 4:20 PM SENIOR ACTUARIAL ANALYST Rowena Antonio M.D. LAB BLOOD ADD-O N Performing Organization Address [facility] Co de Phone Number [facility] [address] [place] [address], [facility] 200 [place] [address] * Prothrombin Time (PT) (09/19/2023 4:20 PM SENIOR ACTUARIAL ANALYST) Prothrombin Time, P 12.3 9.4 - 12.5 sec 09/19/2023 4:32 PM SENIOR ACTUARIAL ANALYST [facility] INR 1.1 0.9 - 1.1 09/19/2023 4:32 PM SENIOR ACTUARIAL ANALYST [facility] Comment: ----ADDITIONAL INFORMATION---- Standard intensity warfarin therapeutic range: 2.0 to 3.0 ?? High intensity warfarin therapeutic range: 2.5 to 3.5 Blood (Blood, Arterial Line) 09/19/2023 4:20 PM SENIOR ACTUARIAL ANALYST 09/19/2023 4:20 PM SENIOR ACTUARIAL ANALYST Rowena Antonio M.D. LAB BLOOD ADD-O N Performing Organization Address City/[facility]/ZIP Co de Phone Number [facility] [address] [place] [address], [facility] [address] [place] [address] * Fibrinogen (09/19/2023 4:20 PM SENIOR ACTUARIAL ANALYST) Pathologist [facility] Fibrinogen, P 246 200 - 393 mg/dL 09/19/2023 4:32 PM SENIOR ACTUARIAL ANALYST [facility] Blood (Blood, Arterial Line) 09/19/2023 4:20 PM SENIOR ACTUARIAL ANALYST 09/19/2023 4:20 PM SENIOR ACTUARIAL ANALYST Rowena Antonio M.D. LAB BLOOD ADD-O N Performing Organization Address [facility]/ZIP Co de Phone Number [facility] [address] [place], [place] [id number] [place] [address] [address] [place] [address] * APTT (Activated Partial Thromboplastin Time) (09/19/2023 4:20 PM SENIOR ACTUARIAL ANALYST) [facility] Activated Partial Thrombopl Time, P 32 25 - 37 sec 09/19/2023 4:34 PM SENIOR ACTUARIAL ANALYST [facility] Blood (Blood, Arterial Line) 09/19/2023 4:20 PM SENIOR ACTUARIAL ANALYST 09/19/2023 4:20 PM SENIOR ACTUARIAL ANALYST Rowena Antonio M.D. LAB BLOOD ADD-O N Performing Organization Address [facility] Co de Phone Number [facility] [address] [place] [address], [facility] [address] [place] [address] * (ABNORMAL) Lactate, B - Intra-op (09/19/2023 4:20 PM SENIOR ACTUARIAL ANALYST) [facility] Lactate, B 2.9(H) 0.5 - 2.2 mmol/L 09/19/2023 4:23 PM SENIOR ACTUARIAL ANALYST [facility] Blood (Blood, Venous) 09/19/2023 4:20 PM SENIOR ACTUARIAL ANALYST 09/19/2023 4:20 PM SENIOR ACTUARIAL ANALYST Rowena Antonio M.D. LAB BLOOD NON A DD-ON Performing Organization Address [facility]/ZIP Co de Phone Number [facility] [address] [place] [address], [facility] [address] [place] [address] * (ABNORMAL) Glucose, Whole Blood (09/19/2023 4:20 PM SENIOR ACTUARIAL ANALYST) Glucose 152(H) 70 - 140 mg/dL 09/19/2023 4:23 PM SENIOR ACTUARIAL ANALYST [facility] Blood (Blood, Arterial Line) 09/19/2023 4:20 PM SENIOR ACTUARIAL ANALYST 09/19/2023 4:20 PM SENIOR ACTUARIAL ANALYST Rowena Antonio M.D. LAB BLOOD ADD-O N [facility] [address] [place], [place] [address] [address] [place] [address] * Potassium, Blood (09/19/2023 4:20 PM SENIOR ACTUARIAL ANALYST) Potassium, B 4.7 3.6 - 5.2 mmol/L 09/19/2023 4:23 PM SENIOR ACTUARIAL ANALYST [facility] Blood (Blood, Arterial Line) 09/19/2023 4:20 PM SENIOR ACTUARIAL ANALYST 09/19/2023 4:20 PM SENIOR ACTUARIAL ANALYST Rowena Antonio M.D. LAB BLOOD NON A DD-ON [facility] [address] [place] [address], [facility] [address] [place] [address] * Sodium, B (09/19/2023 4:20 PM SENIOR ACTUARIAL ANALYST) Sodium, B 139 135 - 145 mmol/L 09/19/2023 4:23 PM SENIOR ACTUARIAL ANALYST [facility] Blood (Blood, Arterial Line) 09/19/2023 4:20 PM SENIOR ACTUARIAL ANALYST 09/19/2023 4:20 PM SENIOR ACTUARIAL ANALYST Rowena Antonio M.D. LAB BLOOD NON A DD-ON Performing Organization Address [facility]/ZIP Co de Phone Number [facility] [address] [place] [address] * Calcium, Ionized (09/19/2023 4:20 PM SENIOR ACTUARIAL ANALYST) Calcium, Ionized, B 5.02 4.65 - 5.30 mg/dL 09/19/2023 4:23 PM SENIOR ACTUARIAL ANALYST [facility] Blood (Blood, Arterial Line) 09/19/2023 4:20 PM SENIOR ACTUARIAL ANALYST 09/19/2023 4:20 PM SENIOR ACTUARIAL ANALYST Rowena Antonio M.D. LAB BLOOD NON A DD-ON Performing Organization Address [facility] Co de Phone Number [facility] [address] [facility] 200 [place] [address] * (ABNORMAL) Blood Gas with Coox, Arterial (09/19/2023 4:20 PM SENIOR ACTUARIAL ANALYST) pO2 139(H) 83 - 108 mm Hg 09/19/2023 4:23 PM SENIOR ACTUARIAL ANALYST [facility] pCO2 35 35 - 48 mm Hg 09/19/2023 4:23 PM SENIOR ACTUARIAL ANALYST [facility] pH 7.43 7.35 - 7.45 pH 09/19/2023 4:23 PM SENIOR ACTUARIAL ANALYST [facility] Base Excess -1 -2 - 3 mmol/L 09/19/2023 4:23 PM SENIOR ACTUARIAL ANALYST [facility] HCO3 23 22 - 26 mmol/L 09/19/2023 4:23 PM SENIOR ACTUARIAL ANALYST [facility] Hemoglobin, Venous 8.9(L) 13.2 - 16.6 g/dL 09/19/2023 4:23 PM SENIOR ACTUARIAL ANALYST [facility] O2Hb 97.3 94.0 - 98.0 % 09/19/2023 4:23 PM SENIOR ACTUARIAL ANALYST [facility] COHb 1.4 <3.0 % 09/19/2023 4:23 PM SENIOR ACTUARIAL ANALYST [facility] MetHb <1.0 <1.5 % 09/19/2023 4:23 PM SENIOR ACTUARIAL ANALYST [facility] CtO2 12.4(L) 18.0 - 21.0 vol % 09/19/2023 4:23 PM SENIOR ACTUARIAL ANALYST [facility] Blood (Blood, Arterial Line) 09/19/2023 4:20 PM SENIOR ACTUARIAL ANALYST 09/19/2023 4:20 PM SENIOR ACTUARIAL ANALYST Rowena Antonio M.D. LAB BLOOD NON A DD-ON [facility] [address] [place] [address], [facility] STMA [facility] [address] [place] [address] * Transfuse Pooled Cryoprecipitate: (09/19/2023 3:54 PM SENIOR ACTUARIAL ANALYST) Rowena Antonio M.D. BLOOD TRANSFUSI ON ORDERABLES * Transfuse Pooled Cryoprecipitate: (09/19/2023 3:54 PM SENIOR ACTUARIAL ANALYST) Rowena Antonio M.D. BLOOD TRANSFUSI ON ORDERABLES * Transfuse Red Blood Cells : (09/19/2023 3:50 PM SENIOR ACTUARIAL ANALYST) Radha Iqbal M.D. BLOOD TRANSFUSION OR DERABLES * Thromboelastograph, Kaolin, Blood (09/19/2023 3:37 PM SENIOR ACTUARIAL ANALYST) R, Kaolin, TEG 4.8 4.0 - 9.0 min 09/19/2023 5:46 PM SENIOR ACTUARIAL ANALYST [facility] K, Kaolin, TEG 1.3 1.0 - 1.8 min 09/19/2023 5:46 PM SENIOR ACTUARIAL ANALYST [facility] Angle, Kaolin, TEG 70.0 64.0 - 78.1 degrees 09/19/2023 5:46 PM SENIOR ACTUARIAL ANALYST [facility] MA, Kaolin, TEG 65.4 57.1 - 72.6 mm 09/19/2023 5:46 PM SENIOR ACTUARIAL ANALYST [facility] Ly30, Kaolin, TEG 0.0 0.0 - 4.8 % 09/19/2023 5:46 PM SENIOR ACTUARIAL ANALYST [facility] Blood (Blood, Arterial Line) 09/19/2023 3:37 PM SENIOR ACTUARIAL ANALYST 09/19/2023 3:37 PM SENIOR ACTUARIAL ANALYST Rowena Antonio M.D. LAB BLOOD NON A DD-ON [facility] [address] [place] [address], [facility] [address] [place] [address] * Thromboelastograph, Kaolin + Heparinase (09/19/2023 3:37 PM SENIOR ACTUARIAL ANALYST) Pathologist [facility] R-Heparinase, TEG 4.7 1.9 - 6.5 min 09/19/2023 5:46 PM SENIOR ACTUARIAL ANALYST [facility] K-Heparinase, TEG 1.3 1.0 - 1.9 min 09/19/2023 5:46 PM SENIOR ACTUARIAL ANALYST [facility] Angle-Heparina se, TEG 72.0 63.5 - 75.1 degrees 09/19/2023 5:46 PM SENIOR ACTUARIAL ANALYST [facility] MA-Heparinase, TEG 65.9 57.7 - 69.3 mm 09/19/2023 5:46 PM SENIOR ACTUARIAL ANALYST [facility] Vo27-Cjykwabhk e, TEG 0.0 0.0 - 4.7 % 09/19/2023 5:46 PM SENIOR ACTUARIAL ANALYST [facility] Tg19-Icxyxqahz e, TEG 1.1 0.0 - 15.0 % 09/19/2023 5:46 PM SENIOR ACTUARIAL ANALYST [facility] Blood (Blood, Arterial Line) 09/19/2023 3:37 PM SENIOR ACTUARIAL ANALYST 09/19/2023 3:37 PM SENIOR ACTUARIAL ANALYST Rowena Antonio M.D. LAB BLOOD NON A DD-ON [facility] [address] [place] [address], [facility] [address] [place] [address] * (ABNORMAL) Platelet Count (09/19/2023 3:37 PM SENIOR ACTUARIAL ANALYST) Pathologist [facility] Platelet Count 108(L) 135 - 317 x10(9)/L 09/19/2023 3:45 PM SENIOR ACTUARIAL ANALYST [facility] Blood (Blood, Arterial Line) 09/19/2023 3:37 PM SENIOR ACTUARIAL ANALYST 09/19/2023 3:37 PM SENIOR ACTUARIAL ANALYST Rowena Antonio M.D. LAB BLOOD ADD-O N [facility] [address] [place] [address], [facility] [address] [place] [address] * (ABNORMAL) Prothrombin Time (PT) (09/19/2023 3:37 PM SENIOR ACTUARIAL ANALYST) Prothrombin Time, P 16.1(H) 9.4 - 12.5 sec 09/19/2023 3:51 PM SENIOR ACTUARIAL ANALYST [facility] INR 1.5 0.9 - 1.1 09/19/2023 3:51 PM SENIOR ACTUARIAL ANALYST [facility] Comment: ----ADDITIONAL INFORMATION---- Standard intensity warfarin therapeutic range: 2.0 to 3.0 ?? High intensity warfarin therapeutic range: 2.5 to 3.5 Blood (Blood, Arterial Line) 09/19/2023 3:37 PM SENIOR ACTUARIAL ANALYST 09/19/2023 3:37 PM SENIOR ACTUARIAL ANALYST Rowena Antonio M.D. LAB BLOOD ADD-O N Performing Organization Address [facility] Co de Phone Number [facility] [address] [place] [address], [facility] 200 [place] [address] * (ABNORMAL) Fibrinogen (09/19/2023 3:37 PM SENIOR ACTUARIAL ANALYST) Fibrinogen, P 169(L) 200 - 393 mg/dL 09/19/2023 3:51 PM SENIOR ACTUARIAL ANALYST [facility] Blood (Blood, Arterial Line) 09/19/2023 3:37 PM SENIOR ACTUARIAL ANALYST 09/19/2023 3:37 PM SENIOR ACTUARIAL ANALYST Rowena Antonio M.D. LAB BLOOD ADD-O N [facility] [address] [place] [address], [facility] [address] [place] [address] * APTT (Activated Partial Thromboplastin Time) (09/19/2023 3:37 PM SENIOR ACTUARIAL ANALYST) Pathologist [facility] Activated Partial Thrombopl Time, P 34 25 - 37 sec 09/19/2023 3:53 PM SENIOR ACTUARIAL ANALYST [facility] Blood (Blood, Arterial Line) 09/19/2023 3:37 PM SENIOR ACTUARIAL ANALYST 09/19/2023 3:37 PM SENIOR ACTUARIAL ANALYST Rowena Antonio M.D. LAB BLOOD ADD-O N [facility] [address] [place] [address], [facility] [address] [place] [address] * (ABNORMAL) Lactate, B - Intra-op (09/19/2023 3:37 PM SENIOR ACTUARIAL ANALYST) Pathologist [facility] Lactate, B 3.1(H) 0.5 - 2.2 mmol/L 09/19/2023 3:41 PM SENIOR ACTUARIAL ANALYST [facility] Blood (Blood, Venous) 09/19/2023 3:37 PM SENIOR ACTUARIAL ANALYST 09/19/2023 3:37 PM SENIOR ACTUARIAL ANALYST Rowena Antonio M.D. LAB BLOOD NON A DD-ON [facility] [address] [place] [address], [facility] [address] [place] [address] * (ABNORMAL) Glucose, Whole Blood (09/19/2023 3:37 PM SENIOR ACTUARIAL ANALYST) Pathologist [facility] Glucose 148(H) 70 - 140 mg/dL 09/19/2023 3:41 PM SENIOR ACTUARIAL ANALYST [facility] Blood (Blood, Arterial Line) 09/19/2023 3:37 PM SENIOR ACTUARIAL ANALYST 09/19/2023 3:37 PM SENIOR ACTUARIAL ANALYST Rowena Antonio M.D. LAB BLOOD ADD-O N [facility] [address] [place] [address], [facility] [address] [place] [address] * Potassium, Blood (09/19/2023 3:37 PM SENIOR ACTUARIAL ANALYST) Potassium, B 4.6 3.6 - 5.2 mmol/L 09/19/2023 3:41 PM SENIOR ACTUARIAL ANALYST [facility] Blood (Blood, Arterial Line) 09/19/2023 3:37 PM SENIOR ACTUARIAL ANALYST 09/19/2023 3:37 PM SENIOR ACTUARIAL ANALYST Rowena Antonio M.D. LAB BLOOD NON A DD-ON Performing Organization Address City/[facility]/ZIP Co de Phone Number [facility] [address] [place] [address], [facility] [address] [place] [address] * Sodium, B (09/19/2023 3:37 PM SENIOR ACTUARIAL ANALYST) Sodium, B 140 135 - 145 mmol/L 09/19/2023 3:41 PM SENIOR ACTUARIAL ANALYST [facility] Blood (Blood, Arterial Line) 09/19/2023 3:37 PM SENIOR ACTUARIAL ANALYST 09/19/2023 3:37 PM SENIOR ACTUARIAL ANALYST Rowena Antonio M.D. LAB BLOOD NON A DD-ON [facility] [address] [place] [address], [facility] [address] [place] [address] * Calcium, Ionized (09/19/2023 3:37 PM SENIOR ACTUARIAL ANALYST) Calcium, Ionized, B 4.83 4.65 - 5.30 mg/dL 09/19/2023 3:41 PM SENIOR ACTUARIAL ANALYST [facility] Blood (Blood, Arterial Line) 09/19/2023 3:37 PM SENIOR ACTUARIAL ANALYST 09/19/2023 3:37 PM SENIOR ACTUARIAL ANALYST Rowena Antonio M.D. LAB BLOOD NON A DD-ON [facility] [address] [place] [address], [facility] STMA [facility] [address] [place] [address] * (ABNORMAL) Blood Gas with Coox, Arterial (09/19/2023 3:37 PM SENIOR ACTUARIAL ANALYST) pO2 101 83 - 108 mm Hg 09/19/2023 3:41 PM SENIOR ACTUARIAL ANALYST [facility] pCO2 40 35 - 48 mm Hg 09/19/2023 3:41 PM SENIOR ACTUARIAL ANALYST [facility] pH 7.37 7.35 - 7.45 pH 09/19/2023 3:41 PM SENIOR ACTUARIAL ANALYST [facility] Base Excess -3(L) -2 - 3 mmol/L 09/19/2023 3:41 PM SENIOR ACTUARIAL ANALYST [facility] HCO3 23 22 - 26 mmol/L 09/19/2023 3:41 PM SENIOR ACTUARIAL ANALYST [facility] Hemoglobin, Venous 8.1(L) 13.2 - 16.6 g/dL 09/19/2023 3:41 PM SENIOR ACTUARIAL ANALYST [facility] O2Hb 96.3 94.0 - 98.0 % 09/19/2023 3:41 PM SENIOR ACTUARIAL ANALYST [facility] COHb 1.4 <3.0 % 09/19/2023 3:41 PM SENIOR ACTUARIAL ANALYST [facility] MetHb 1.0 <1.5 % 09/19/2023 3:41 PM SENIOR ACTUARIAL ANALYST [facility] CtO2 11.1(L) 18.0 - 21.0 vol % 09/19/2023 3:41 PM SENIOR ACTUARIAL ANALYST [facility] Blood (Blood, Arterial Line) 09/19/2023 3:37 PM SENIOR ACTUARIAL ANALYST 09/19/2023 3:37 PM SENIOR ACTUARIAL ANALYST Rowena Antonio M.D. LAB BLOOD NON A DD-ON [facility] [address] [place], [place] [address] [place] [address] 200 [place] [address] * Transfuse Red Blood Cells : (09/19/2023 3:23 PM SENIOR ACTUARIAL ANALYST) Radha Iqbal M.D. BLOOD TRANSFUSION OR DERABLES * (ABNORMAL) Platelet Count (09/19/2023 2:46 PM SENIOR ACTUARIAL ANALYST) Platelet Count 115(L) 135 - 317 x10(9)/L 09/19/2023 2:56 PM SENIOR ACTUARIAL ANALYST [facility] Blood (Blood, Arterial Line) 09/19/2023 2:46 PM SENIOR ACTUARIAL ANALYST 09/19/2023 2:46 PM SENIOR ACTUARIAL ANALYST Rowena Antonio M.D. LAB BLOOD ADD-O N Performing Organization Address City/[facility]/ZIP Co de Phone Number [facility] [address] [place], [place] [address] [place] [address] 200 [place] [address] * (ABNORMAL) Prothrombin Time (PT) (09/19/2023 2:46 PM SENIOR ACTUARIAL ANALYST) Prothrombin Time, P 15.4(H) 9.4 - 12.5 sec 09/19/2023 2:58 PM SENIOR ACTUARIAL ANALYST [facility] INR 1.4 0.9 - 1.1 09/19/2023 2:58 PM SENIOR ACTUARIAL ANALYST [facility] Comment: ----ADDITIONAL INFORMATION---- Standard intensity warfarin therapeutic range: 2.0 to 3.0 ?? High intensity warfarin therapeutic range: 2.5 to 3.5 Blood (Blood, Arterial Line) 09/19/2023 2:46 PM SENIOR ACTUARIAL ANALYST 09/19/2023 2:46 PM SENIOR ACTUARIAL ANALYST Rowena Antonio M.D. LAB BLOOD ADD-O N Performing Organization Address City/[facility]/ZIP Co de Phone Number [facility] [address] [place], [place] [address] [place] [address] 200 [place] [address] * (ABNORMAL) Fibrinogen (09/19/2023 2:46 PM SENIOR ACTUARIAL ANALYST) Pathologist [facility] Fibrinogen, P 189(L) 200 - 393 mg/dL 09/19/2023 2:58 PM SENIOR ACTUARIAL ANALYST [facility] Blood (Blood, Arterial Line) 09/19/2023 2:46 PM SENIOR ACTUARIAL ANALYST 09/19/2023 2:46 PM SENIOR ACTUARIAL ANALYST Rowena Antonio M.D. LAB BLOOD ADD-O N [facility] [address] [place] [address], [facility] [address] [place] [address] * APTT (Activated Partial Thromboplastin Time) (09/19/2023 2:46 PM SENIOR ACTUARIAL ANALYST) [facility] Activated Partial Thrombopl Time, P 32 25 - 37 sec 09/19/2023 3:00 PM SENIOR ACTUARIAL ANALYST [facility] Blood (Blood, Arterial Line) 09/19/2023 2:46 PM SENIOR ACTUARIAL ANALYST 09/19/2023 2:46 PM SENIOR ACTUARIAL ANALYST Rowena Antonio M.D. LAB BLOOD ADD-O N Performing Organization Address City/[facility]/ZIP Co de Phone Number [facility] [address] [place] [address], [facility] [address] [place] [address] * Glucose, Whole Blood (09/19/2023 2:46 PM SENIOR ACTUARIAL ANALYST) [facility] Glucose 139 70 - 140 mg/dL 09/19/2023 2:50 PM SENIOR ACTUARIAL ANALYST [facility] Blood (Blood, Arterial Line) 09/19/2023 2:46 PM SENIOR ACTUARIAL ANALYST 09/19/2023 2:46 PM SENIOR ACTUARIAL ANALYST Rowena Antonio M.D. LAB BLOOD ADD-O N [facility] [address] [place] [address], [facility] [address] [place] [address] * Potassium, Blood (09/19/2023 2:46 PM SENIOR ACTUARIAL ANALYST) Potassium, B 3.8 3.6 - 5.2 mmol/L 09/19/2023 2:50 PM SENIOR ACTUARIAL ANALYST [facility] Blood (Blood, Arterial Line) 09/19/2023 2:46 PM SENIOR ACTUARIAL ANALYST 09/19/2023 2:46 PM SENIOR ACTUARIAL ANALYST Rowena Antonio M.D. LAB BLOOD NON A DD-ON Performing Organization Address City/[facility]/ZIP Co de Phone Number [facility] [address] [place], [place] [address] [place] [address] 200 [place] [address] * Sodium, B (09/19/2023 2:46 PM SENIOR ACTUARIAL ANALYST) Sodium, B 141 135 - 145 mmol/L 09/19/2023 2:50 PM SENIOR ACTUARIAL ANALYST [facility] Blood (Blood, Arterial Line) 09/19/2023 2:46 PM SENIOR ACTUARIAL ANALYST 09/19/2023 2:46 PM SENIOR ACTUARIAL ANALYST Rowena Antonio M.D. LAB BLOOD NON A DD-ON [facility] [address] [place], [place] [address] [address] [place] [address] * (ABNORMAL) Calcium, Ionized (09/19/2023 2:46 PM SENIOR ACTUARIAL ANALYST) Calcium, Ionized, B 5.36(H) 4.65 - 5.30 mg/dL 09/19/2023 2:50 PM SENIOR ACTUARIAL ANALYST [facility] Blood (Blood, Arterial Line) 09/19/2023 2:46 PM SENIOR ACTUARIAL ANALYST 09/19/2023 2:46 PM SENIOR ACTUARIAL ANALYST Rowena Antonio M.D. LAB BLOOD NON A DD-ON [facility] [address] [place] [address], [facility] [address] [place] [address] * (ABNORMAL) Blood Gas with Coox, Arterial (09/19/2023 2:46 PM SENIOR ACTUARIAL ANALYST) pO2 317(H) 83 - 108 mm Hg 09/19/2023 2:50 PM SENIOR ACTUARIAL ANALYST [facility] pCO2 36 35 - 48 mm Hg 09/19/2023 2:50 PM SENIOR ACTUARIAL ANALYST [facility] pH 7.42 7.35 - 7.45 pH 09/19/2023 2:50 PM SENIOR ACTUARIAL ANALYST [facility] Base Excess -1 -2 - 3 mmol/L 09/19/2023 2:50 PM SENIOR ACTUARIAL ANALYST [facility] HCO3 23 22 - 26 mmol/L 09/19/2023 2:50 PM SENIOR ACTUARIAL ANALYST [facility] Hemoglobin, Venous 8.1(L) 13.2 - 16.6 g/dL 09/19/2023 2:50 PM SENIOR ACTUARIAL ANALYST [facility] O2Hb 98.0 94.0 - 98.0 % 09/19/2023 2:50 PM SENIOR ACTUARIAL ANALYST [facility] COHb 1.3 <3.0 % 09/19/2023 2:50 PM SENIOR ACTUARIAL ANALYST [facility] MetHb 1.1 <1.5 % 09/19/2023 2:50 PM SENIOR ACTUARIAL ANALYST [facility] CtO2 11.9(L) 18.0 - 21.0 vol % 09/19/2023 2:50 PM SENIOR ACTUARIAL ANALYST [facility] Blood (Blood, Arterial Line) 09/19/2023 2:46 PM SENIOR ACTUARIAL ANALYST 09/19/2023 2:46 PM SENIOR ACTUARIAL ANALYST Rowena Antonio M.D. LAB BLOOD NON A DD-ON [facility] [address] [place] [address], [facility] [address] [place] [address] * DX Chest Retained Surgical Item 1 View (09/19/2023 2:30 PM SENIOR ACTUARIAL ANALYST) Anatomical Region Laterality Modality Chest, Thoracic RST LOS, Tho racic ARZ LOS, Thoracic FLA LOS N/A Digital Radiography 09/19/2023 2:32 PM SENIOR ACTUARIAL ANALYST Impressions 09/19/2023 2:39 PM SENIOR ACTUARIAL ANALYST The aforementioned object in question is not identified. New sternotomy, mediastinal clips, AVR, mediastinal drains, right IJ Inlet-Sepideh catheter tip at the MPA are identified. Likely small amount of mediastinal air. ET tube tip is low lying, approximately 1 cm above the blaine, correlation with chin position is recommended. Loop recorder. Shallower inspiration with accentuation of the cardiac silhouette and vascular crowding. Discussed with Dr. Stanford at 2:36 PM on 09/19/2023. Narrative 09/19/2023 2:39 PM SENIOR ACTUARIAL ANALYST EXAM: DX CHEST RETAINED SURGICAL ITEM [...] sternotomy,mediastinal clips, AVR, mediastinal drains, right IJ Inlet-Sepideh cathetertip at the MPA are identified. Likely [...] * Transfuse Platelets : (09/19/2023 2:17 PM SENIOR ACTUARIAL ANALYST) Radha Iqbal M.D. BLOOD TRANSFUSION OR DERABLES * Transfuse Red Blood Cells : (09/19/2023 2:00 PM SENIOR ACTUARIAL ANALYST) Radha Iqbal M.D. BLOOD TRANSFUSION OR DERABLES * (ABNORMAL) Platelet Count (09/19/2023 1:40 PM SENIOR ACTUARIAL ANALYST) Platelet Count 95(L) 135 - 317 x10(9)/L 09/19/2023 1:44 PM SENIOR ACTUARIAL ANALYST [facility] Blood (Blood, Arterial Line) 09/19/2023 1:40 PM SENIOR ACTUARIAL ANALYST 09/19/2023 1:40 PM SENIOR ACTUARIAL ANALYST Radha Iqbal M.D. LAB BLOOD ADD-ON Performing Organization Address City/[facility] Co de Phone Number [facility] [address] [place], [place] [address] [place] [address] 200 [place] [address] * (ABNORMAL) Prothrombin Time (PT) (09/19/2023 1:40 PM SENIOR ACTUARIAL ANALYST) Pathologist [facility] Prothrombin Time, P 16.5(H) 9.4 - 12.5 sec 09/19/2023 1:55 PM SENIOR ACTUARIAL ANALYST [facility] INR 1.5 0.9 - 1.1 09/19/2023 1:55 PM SENIOR ACTUARIAL ANALYST [facility] Comment: ----ADDITIONAL INFORMATION---- Standard intensity warfarin therapeutic range: 2.0 to 3.0 ?? High intensity warfarin therapeutic range: 2.5 to 3.5 Blood (Blood, Arterial Line) 09/19/2023 1:40 PM SENIOR ACTUARIAL ANALYST 09/19/2023 1:40 PM SENIOR ACTUARIAL ANALYST Radha Iqbal M.D. LAB BLOOD ADD-ON Performing Organization Address City/[facility]/ZIP Co de Phone Number [facility] [address] [place] [address], [facility] [address] [place] [address] * (ABNORMAL) Fibrinogen (09/19/2023 1:40 PM SENIOR ACTUARIAL ANALYST) Pathologist [facility] Fibrinogen, P 174(L) 200 - 393 mg/dL 09/19/2023 1:56 PM SENIOR ACTUARIAL ANALYST [facility] Blood (Blood, Arterial Line) 09/19/2023 1:40 PM SENIOR ACTUARIAL ANALYST 09/19/2023 1:40 PM SENIOR ACTUARIAL ANALYST Radha Iqbal M.D. LAB BLOOD ADD-ON [facility] [address] [place] [address], [facility] [address] [place] [address] * APTT (Activated Partial Thromboplastin Time) (09/19/2023 1:40 PM SENIOR ACTUARIAL ANALYST) Pathologist [facility] Activated Partial Thrombopl Time, P 33 25 - 37 sec 09/19/2023 1:56 PM SENIOR ACTUARIAL ANALYST [facility] Blood (Blood, Arterial Line) 09/19/2023 1:40 PM SENIOR ACTUARIAL ANALYST 09/19/2023 1:40 PM SENIOR ACTUARIAL ANALYST Radha Iqbal M.D. LAB BLOOD ADD-ON Performing Organization Address City/[facility]/ZIP Co de Phone Number [facility] [address] [place] [address], [facility] [address] [place] [address] * (ABNORMAL) Glucose, Whole Blood (09/19/2023 1:40 PM SENIOR ACTUARIAL ANALYST) [facility] Glucose 155(H) 70 - 140 mg/dL 09/19/2023 1:43 PM SENIOR ACTUARIAL ANALYST [facility] Blood (Blood, Arterial Line) 09/19/2023 1:40 PM SENIOR ACTUARIAL ANALYST 09/19/2023 1:40 PM SENIOR ACTUARIAL ANALYST Radha Iqbal M.D. LAB BLOOD ADD-ON [facility] [address] [place] [address], [facility] [address] [place] [address] * (ABNORMAL) Potassium, Blood (09/19/2023 1:40 PM SENIOR ACTUARIAL ANALYST) Pathologist [facility] Potassium, B 3.3(L) 3.6 - 5.2 mmol/L 09/19/2023 1:43 PM SENIOR ACTUARIAL ANALYST [facility] Blood (Blood, Arterial Line) 09/19/2023 1:40 PM SENIOR ACTUARIAL ANALYST 09/19/2023 1:40 PM SENIOR ACTUARIAL ANALYST Radha Iqbal M.D. LAB BLOOD NON ADD-ON [facility] [address] [place], [place] [id number] [place] [address] [address] [place] [address] * Sodium, B (09/19/2023 1:40 PM SENIOR ACTUARIAL ANALYST) Sodium, B 143 135 - 145 mmol/L 09/19/2023 1:43 PM SENIOR ACTUARIAL ANALYST [facility] Blood (Blood, Arterial Line) 09/19/2023 1:40 PM SENIOR ACTUARIAL ANALYST 09/19/2023 1:40 PM SENIOR ACTUARIAL ANALYST Radha Iqbal M.D. LAB BLOOD NON ADD-ON Performing Organization Address City/[facility]/ZIP Co de Phone Number [facility] [address] [place], [place] [address] [address] [place] [address] * (ABNORMAL) Calcium, Ionized (09/19/2023 1:40 PM SENIOR ACTUARIAL ANALYST) Calcium, Ionized, B 3.81(L) 4.65 - 5.30 mg/dL 09/19/2023 1:43 PM SENIOR ACTUARIAL ANALYST [facility] Blood (Blood, Arterial Line) 09/19/2023 1:40 PM SENIOR ACTUARIAL ANALYST 09/19/2023 1:40 PM SENIOR ACTUARIAL ANALYST Radha Iqbal M.D. LAB BLOOD NON ADD-ON [facility] [address] [place], [place] [address] [address] [place] [address] * (ABNORMAL) Blood Gas with Coox, Arterial (09/19/2023 1:40 PM SENIOR ACTUARIAL ANALYST) pO2 101 83 - 108 mm Hg 09/19/2023 1:43 PM SENIOR ACTUARIAL ANALYST [facility] pCO2 36 35 - 48 mm Hg 09/19/2023 1:43 PM SENIOR ACTUARIAL ANALYST [facility] pH 7.40 7.35 - 7.45 pH 09/19/2023 1:43 PM SENIOR ACTUARIAL ANALYST [facility] Base Excess -3(L) -2 - 3 mmol/L 09/19/2023 1:43 PM SENIOR ACTUARIAL ANALYST [facility] HCO3 22 22 - 26 mmol/L 09/19/2023 1:43 PM SENIOR ACTUARIAL ANALYST [facility] Hemoglobin, Venous 7.2(L) 13.2 - 16.6 g/dL 09/19/2023 1:43 PM SENIOR ACTUARIAL ANALYST [facility] O2Hb 97.1 94.0 - 98.0 % 09/19/2023 1:43 PM SENIOR ACTUARIAL ANALYST [facility] COHb 1.4 <3.0 % 09/19/2023 1:43 PM SENIOR ACTUARIAL ANALYST [facility] MetHb <1.0 <1.5 % 09/19/2023 1:43 PM SENIOR ACTUARIAL ANALYST [facility] CtO2 10.1(L) 18.0 - 21.0 vol % 09/19/2023 1:43 PM SENIOR ACTUARIAL ANALYST [facility] Blood (Blood, Arterial Line) 09/19/2023 1:40 PM SENIOR ACTUARIAL ANALYST 09/19/2023 1:40 PM SENIOR ACTUARIAL ANALYST Radha Iqbal M.D. LAB BLOOD NON ADD-ON [facility] [address] [place] [address], [facility] [address] [place] [address] * Transfuse autologous RBC (Cell Salvage) : (09/19/2023 1:28 PM SENIOR ACTUARIAL ANALYST) Radha Iqbal M.D. BLOOD TRANSFUSION OR DERABLES * Transfuse Fresh Frozen Plasma : (09/19/2023 1:24 PM SENIOR ACTUARIAL ANALYST) Radha Iqbal M.D. BLOOD TRANSFUSION OR DERABLES * Transfuse Platelets : (09/19/2023 1:09 PM SENIOR ACTUARIAL ANALYST) Radha Iqbal M.D. BLOOD TRANSFUSION OR DERABLES * Lactate, B - Intra-op (09/19/2023 12:45 PM SENIOR ACTUARIAL ANALYST) Lactate, B 2.0 0.5 - 2.2 mmol/L 09/19/2023 12:46 PM SENIOR ACTUARIAL ANALYST [facility] Blood (Blood, Venous) 09/19/2023 12:45 PM SENIOR ACTUARIAL ANALYST 09/19/2023 12:45 PM SENIOR ACTUARIAL ANALYST Radha Iqbal M.D. LAB BLOOD NON ADD-ON [facility] [address] [place], [place] [address] [place] [address] 200 [place] [address] * (ABNORMAL) Glucose, Whole Blood (09/19/2023 12:45 PM SENIOR ACTUARIAL ANALYST) Glucose 151(H) 70 - 140 mg/dL 09/19/2023 12:46 PM SENIOR ACTUARIAL ANALYST [facility] Blood (Blood, Arterial Line) 09/19/2023 12:45 PM SENIOR ACTUARIAL ANALYST 09/19/2023 12:45 PM SENIOR ACTUARIAL ANALYST Radha Iqbal M.D. LAB BLOOD ADD-ON Performing Organization Address City/[facility]/ZIP Co de Phone Number [facility] [address] [place] [address], [facility] [address] [place] [address] * Potassium, Blood (09/19/2023 12:45 PM SENIOR ACTUARIAL ANALYST) Potassium, B 3.8 3.6 - 5.2 mmol/L 09/19/2023 12:46 PM SENIOR ACTUARIAL ANALYST [facility] Blood (Blood, Arterial Line) 09/19/2023 12:45 PM SENIOR ACTUARIAL ANALYST 09/19/2023 12:45 PM SENIOR ACTUARIAL ANALYST Radha Iqbal M.D. LAB BLOOD NON ADD-ON [facility] [address] [place], [place] [address] [address] [place] [address] * Sodium, B (09/19/2023 12:45 PM SENIOR ACTUARIAL ANALYST) Pathologist [facility] Sodium, B 142 135 - 145 mmol/L 09/19/2023 12:46 PM SENIOR ACTUARIAL ANALYST [facility] Blood (Blood, Arterial Line) 09/19/2023 12:45 PM SENIOR ACTUARIAL ANALYST 09/19/2023 12:45 PM SENIOR ACTUARIAL ANALYST Radha Iqbal M.D. LAB BLOOD NON ADD-ON [facility] [address] [place], [place] [address] [place] [address] [address] [place] [address] * Calcium, Ionized (09/19/2023 12:45 PM SENIOR ACTUARIAL ANALYST) [facility] Calcium, Ionized, B 4.86 4.65 - 5.30 mg/dL 09/19/2023 12:46 PM SENIOR ACTUARIAL ANALYST [facility] Blood (Blood, Arterial Line) 09/19/2023 12:45 PM SENIOR ACTUARIAL ANALYST 09/19/2023 12:45 PM SENIOR ACTUARIAL ANALYST Radha Iqbal M.D. LAB BLOOD NON ADD-ON [facility] [address] [place] [address], [facility] [address] [place] [address] * (ABNORMAL) Blood Gas with Coox, Arterial (09/19/2023 12:45 PM SENIOR ACTUARIAL ANALYST) [facility] pO2 360(H) 83 - 108 mm Hg 09/19/2023 12:46 PM SENIOR ACTUARIAL ANALYST [facility] pCO2 37 35 - 48 mm Hg 09/19/2023 12:46 PM SENIOR ACTUARIAL ANALYST [facility] pH 7.43 7.35 - 7.45 pH 09/19/2023 12:46 PM SENIOR ACTUARIAL ANALYST [facility] Base Excess 0 -2 - 3 mmol/L 09/19/2023 12:46 PM SENIOR ACTUARIAL ANALYST [facility] HCO3 25 22 - 26 mmol/L 09/19/2023 12:46 PM SENIOR ACTUARIAL ANALYST [facility] Hemoglobin, Venous 8.5(L) 13.2 - 16.6 g/dL 09/19/2023 12:46 PM SENIOR ACTUARIAL ANALYST [facility] O2Hb 98.9(H) 94.0 - 98.0 % 09/19/2023 12:46 PM SENIOR ACTUARIAL ANALYST [facility] COHb 1.1 <3.0 % 09/19/2023 12:46 PM SENIOR ACTUARIAL ANALYST [facility] MetHb <1.0 <1.5 % 09/19/2023 12:46 PM SENIOR ACTUARIAL ANALYST [facility] CtO2 12.8(L) 18.0 - 21.0 vol % 09/19/2023 12:46 PM SENIOR ACTUARIAL ANALYST [facility] Blood (Blood, Arterial Line) 09/19/2023 12:45 PM SENIOR ACTUARIAL ANALYST 09/19/2023 12:45 PM SENIOR ACTUARIAL ANALYST Radha Iqbal M.D. LAB BLOOD NON ADD-ON Performing Organization Address City/[facility]/ZIP Co de Phone Number [facility] [address] [place], [place] [address] [place] [address] [address] [place] [address] * (ABNORMAL) Platelet Count (09/19/2023 12:44 PM SENIOR ACTUARIAL ANALYST) [facility] Platelet Count 62(L) 135 - 317 x10(9)/L 09/19/2023 12:51 PM SENIOR ACTUARIAL ANALYST [facility] Blood (Blood, Arterial Line) 09/19/2023 12:44 PM SENIOR ACTUARIAL ANALYST 09/19/2023 12:44 PM SENIOR ACTUARIAL ANALYST Radha Iqbal M.D. LAB BLOOD ADD-ON [facility] [address] [place] [address], [facility] [address] [place] [address] * (ABNORMAL) Prothrombin Time (PT) (09/19/2023 12:44 PM SENIOR ACTUARIAL ANALYST) [facility] Prothrombin Time, P 18.5(H) 9.4 - 12.5 sec 09/19/2023 1:00 PM SENIOR ACTUARIAL ANALYST [facility] INR 1.7 0.9 - 1.1 09/19/2023 1:00 PM SENIOR ACTUARIAL ANALYST [facility] Comment: ----ADDITIONAL INFORMATION---- Standard intensity warfarin therapeutic range: 2.0 to 3.0 ?? High intensity warfarin therapeutic range: 2.5 to 3.5 Blood (Blood, Arterial Line) 09/19/2023 12:44 PM SENIOR ACTUARIAL ANALYST 09/19/2023 12:44 PM SENIOR ACTUARIAL ANALYST Radha Iqbal M.D. LAB BLOOD ADD-ON Performing Organization Address City/[facility]/ZIP Co de Phone Number [facility] [address] [place] [address] * (ABNORMAL) Fibrinogen (09/19/2023 12:44 PM SENIOR ACTUARIAL ANALYST) Pathologist [facility] Fibrinogen, P 195(L) 200 - 393 mg/dL 09/19/2023 12:59 PM SENIOR ACTUARIAL ANALYST [facility] Blood (Blood, Arterial Line) 09/19/2023 12:44 PM SENIOR ACTUARIAL ANALYST 09/19/2023 12:44 PM SENIOR ACTUARIAL ANALYST Radha Iqbal M.D. LAB BLOOD ADD-ON Performing Organization Address City/[facility]/ZIP Co de Phone Number [facility] [address] [place] [address] * (ABNORMAL) APTT (Activated Partial Thromboplastin Time) (09/19/2023 12:44 PM SENIOR ACTUARIAL ANALYST) [facility] Activated Partial Thrombopl Time, P 40(H) 25 - 37 sec 09/19/2023 1:01 PM SENIOR ACTUARIAL ANALYST [facility] Blood (Blood, Arterial Line) 09/19/2023 12:44 PM SENIOR ACTUARIAL ANALYST 09/19/2023 12:44 PM SENIOR ACTUARIAL ANALYST Radha Iqbal M.D. LAB BLOOD ADD-ON Performing Organization Address City/[facility]/ZIP Co de Phone Number [facility] [address] [place] [address], [facility] STMA [facility] [address] [place] [address] * ACT (Activated Clotting Time), POCT (09/19/2023 12:42 PM SENIOR ACTUARIAL ANALYST) Activated Clotting Time 126 82 - 152 sec 09/19/2023 12:45 PM SENIOR ACTUARIAL ANALYST PCLX 09/19/2023 12:4 2 PM SENIOR ACTUARIAL ANALYST 09/19/2023 12:45 PM SENIOR ACTUARIAL ANALYST Unknown Provider LAB POCT ORDERABLES - DEVICE Performing Organization Address City/[facility] Co de Phone Number [facility]OC [facility] [address] [place] [address], [facility] PCLX [facility] POC [address] [place] [address] * (ABNORMAL) Hemoglobin (HGB), POCT (09/19/2023 12:17 PM SENIOR ACTUARIAL ANALYST) Hemoglobin, POCT, B 8.7(L) 13.2 - 16.6 g/dL 09/19/2023 12:23 PM SENIOR ACTUARIAL ANALYST PCSM Blood 09/19/2023 12:1 7 PM SENIOR ACTUARIAL ANALYST 09/19/2023 12:23 PM SENIOR ACTUARIAL ANALYST Unknown Provider LAB POCT ORDERABLES - DEVICE Performing Organization Address City/[facility]/ZIP Co de Phone Number [facility] [address] [place] [address], [facility] PCSM [facility] POC [address] [place] [address] * (ABNORMAL) ACT (Activated Clotting Time), POCT (09/19/2023 12:01 PM SENIOR ACTUARIAL ANALYST) Activated Clotting Time 668(H) 82 - 152 sec 09/19/2023 12:18 PM SENIOR ACTUARIAL ANALYST PCLX 09/19/2023 12:0 1 PM SENIOR ACTUARIAL ANALYST 09/19/2023 12:18 PM SENIOR ACTUARIAL ANALYST Unknown Provider LAB POCT ORDERABLES - DEVICE Performing Organization Address City/[facility]/ZIP Co de Phone Number [facility] [address] [place] [address], [facility] PCLX [facility] POC [address] [place] [address] * (ABNORMAL) Glucose, POCT (09/19/2023 12:00 PM SENIOR ACTUARIAL ANALYST) Glucose, POCT, B 150(H) 70 - 140 mg/dL 09/19/2023 12:01 PM SENIOR ACTUARIAL ANALYST PCSM Site ARTLINE 09/19/2023 12:01 PM SENIOR ACTUARIAL ANALYST PCS Blood 09/19/2023 12:0 0 PM SENIOR ACTUARIAL ANALYST 09/19/2023 12:01 PM SENIOR ACTUARIAL ANALYST Unknown Provider LAB POCT ORDERABLES- MANUAL Performing Organization Address City/[facility]/ZIP Co de Phone Number [facility] [address] [place] [address], [facility] PCSM [facility] POC [address] [place] [address] * Surgical Pathology, Frozen Lab (09/19/2023 11:34 AM SENIOR ACTUARIAL ANALYST) 09/25/2023 10:47 AM SENIOR ACTUARIAL ANALYST [facility] Participated in the Interpretation Amber Gutierrez M.D. -Pathology Resident 09/25/2023 10:47 AM SENIOR ACTUARIAL ANALYST [facility] Report electronically signed by Zohreh De La Cruz M.D. I verify that I have examined all relevant slides/materials for the specimen(s) and rendered or confirmed the diagnosis. 09/25/2023 10:47 AM SENIOR ACTUARIAL ANALYST [facility] Gross Description A. ??Received fresh labeled with the patient's name, medical record number, and designated as heart, left atrial appendage. ??It consists of a 2.6 x 2.4 x 1.3 cm atrial appendage without mural thrombus. ??Data Entry Clerk sections are submitted for microscopy in cassette A1. ??Grossed by Teresa Qureshi M.S., PA([facility]). B. ??Received fresh labeled with the patient's [...] up to 0.2 cm in greatest size. ??Data Entry Clerk sections are submitted for microscopy in cassette B1, following decalcification. Grossed by Teresa Quresih M.S., PA([facility]). 09/25/2023 10:47 AM SENIOR ACTUARIAL ANALYST [facility] Block Summary A Heart, left atrial appendage A1 B Heart, aortic valve B1 09/25/2023 10:47 AM SENIOR ACTUARIAL ANALYST [facility] Interpretation FINAL DIAGNOSIS A. ??Heart, left atrial appendage, excision: Mild myocyte hypertrophy and mild interstitial fibrosis, without mural thrombus. B. ??Heart, aortic valve, excision: ? 1. ??Degenerative fibrocalcific aortic valve disease, with moderate calcification ?(evaluated with Verhoeff-Van Gieson stain on block B1). ? 2. ??History of severe aortic stenosis and trivial aortic regurgitation. Diagnosis was made via digital imaging. 09/25/2023 10:47 AM SENIOR ACTUARIAL ANALYST [facility] Tissue (Heart, Atrium) 09/19/2023 11:34 AM SENIOR ACTUARIAL ANALYST Tissue (Heart Valve, Aortic) 09/19/2023 11:34 AM SENIOR ACTUARIAL ANALYST Sarah Miller M.D., M.P.H. LAB SURG PATH ORDERABLES [facility] [address] [place] [address], [facility] [address] [place] [address] * Transfuse autologous RBC (Cell Salvage) : (09/19/2023 11:33 AM SENIOR ACTUARIAL ANALYST) Radha Iqbal M.D. BLOOD TRANSFUSION OR DERABLES * (ABNORMAL) ACT (Activated Clotting Time), POCT (09/19/2023 11:28 AM SENIOR ACTUARIAL ANALYST) Activated Clotting Time 587(H) 82 - 152 sec 09/19/2023 11:43 AM SENIOR ACTUARIAL ANALYST PCLX 09/19/2023 11:2 8 AM SENIOR ACTUARIAL ANALYST 09/19/2023 11:43 AM SENIOR ACTUARIAL ANALYST Unknown Provider LAB POCT ORDERABLES - DEVICE Performing Organization Address [facility]/ZIP Co de Phone Number POC [facility] [address] [place] [address], [facility] PCLX [facility] POC [address] [place] [address] * (ABNORMAL) ACT (Activated Clotting Time), POCT (09/19/2023 10:55 AM SENIOR ACTUARIAL ANALYST) Activated Clotting Time 631(H) 82 - 152 sec 09/19/2023 11:05 AM SENIOR ACTUARIAL ANALYST PCLX 09/19/2023 10:5 5 AM SENIOR ACTUARIAL ANALYST 09/19/2023 11:05 AM SENIOR ACTUARIAL ANALYST Unknown Provider LAB POCT ORDERABLES - DEVICE Performing Organization Address [facility] Co de Phone Number POC [facility] [address] [place] [address], [facility] PCLX [facility] POC [address] [place] [address] * (ABNORMAL) ACT (Activated Clotting Time), POCT (09/19/2023 10:24 AM SENIOR ACTUARIAL ANALYST) Activated Clotting Time 747(H) 82 - 152 sec 09/19/2023 10:37 AM SENIOR ACTUARIAL ANALYST PCLX 09/19/2023 10:2 4 AM SENIOR ACTUARIAL ANALYST 09/19/2023 10:37 AM SENIOR ACTUARIAL ANALYST Unknown Provider LAB POCT ORDERABLES - DEVICE Performing Organization Address [facility] Co de Phone Number [facility] [address] [place] [address], [facility] PCLX [facility] POC [address] [place] [address] * (ABNORMAL) Glucose, POCT (09/19/2023 10:23 AM SENIOR ACTUARIAL ANALYST) Glucose, POCT, B 148(H) 70 - 140 mg/dL 09/19/2023 10:24 AM SENIOR ACTUARIAL ANALYST PCSM Site ARTLINE 09/19/2023 10:24 AM SENIOR ACTUARIAL ANALYST [facility] Blood 09/19/2023 10:2 3 AM SENIOR ACTUARIAL ANALYST 09/19/2023 10:24 AM SENIOR ACTUARIAL ANALYST Unknown Provider LAB POCT ORDERABLES- MANUAL [facility] [address] [place] [address], [facility] PCSM [facility] POC [address] [place] [address] * Transfuse Red Blood Cells : (09/19/2023 10:13 AM SENIOR ACTUARIAL ANALYST) Radha Iqbal M.D. BLOOD TRANSFUSION OR DERABLES * (EDMUNDO) - INTRAOPERATIVE WITH COLOR AND LIMITED DOPPLER (PROBE NOT PLACED) (09/19/2023 9:56 AM SENIOR ACTUARIAL ANALYST) Ejection Fraction [facility] Anatomical Region Laterality Modality Echocardiography 09/19/2023 6:43 AM SENIOR ACTUARIAL ANALYST Impressions 09/19/2023 1:45 PM SENIOR ACTUARIAL ANALYST PROCEDURE:Transesophageal echocardiogram performed at the request of the primary client service representative. Transesophageal echocardiogram completed without complications. PRE-BYPASS:Pre-bypass left [...] the Order-Level Documents. Narrative 09/19/2023 1:45 PM SENIOR ACTUARIAL ANALYST For the complete report, see the [...] PROCEDURE:Transesophageal echocardiogram performed at the request of thendimary client service representative. Transesophageal echocardiogram completedwithout complications. PRE-BYPASS:Pre-bypass left ventricular [...] (Activated Clotting Time), POCT (09/19/2023 9:51 AM SENIOR ACTUARIAL ANALYST) [facility] Activated Clotting Time 910(H) 82 - 152 sec 09/19/2023 10:04 AM SENIOR ACTUARIAL ANALYST PCLX 09/19/2023 9:51 AM SENIOR ACTUARIAL ANALYST 09/19/2023 10:04 AM SENIOR ACTUARIAL ANALYST Unknown Provider LAB POCT ORDERABLES - DEVICE Performing Organization Address City/[facility]/ZIP Co de Phone Number POC [facility] [address] [place] [address], [facility] PCLX [facility] POC [address] [place] [address] * Glucose, Whole Blood (09/19/2023 9:51 AM SENIOR ACTUARIAL ANALYST) [facility] Glucose 126 70 - 140 mg/dL 09/19/2023 9:53 AM SENIOR ACTUARIAL ANALYST [facility] Blood (Blood, Arterial Line) 09/19/2023 9:51 AM SENIOR ACTUARIAL ANALYST 09/19/2023 9:51 AM SENIOR ACTUARIAL ANALYST Sarah Miller M.D., M.P.H. LAB BLOOD ADD -ON Performing Organization Address City/[facility]/ZIP Co de Phone Number [facility] [address] [place] [address], [facility] STMA [facility] [address] [place] [address] * Potassium, Blood (09/19/2023 9:51 AM SENIOR ACTUARIAL ANALYST) [facility] Potassium, B 4.1 3.6 - 5.2 mmol/L 09/19/2023 9:53 AM SENIOR ACTUARIAL ANALYST [facility] Blood (Blood, Arterial Line) 09/19/2023 9:51 AM SENIOR ACTUARIAL ANALYST 09/19/2023 9:51 AM SENIOR ACTUARIAL ANALYST Sarah Miller M.D., M.P.H. LAB BLOOD NON ADD-ON Performing Organization Address City/[facility]/ZIP Co de Phone Number [facility] [address] [place] [address] * Sodium, B (09/19/2023 9:51 AM SENIOR ACTUARIAL ANALYST) Pathologist [facility] Sodium, B 143 135 - 145 mmol/L 09/19/2023 9:53 AM SENIOR ACTUARIAL ANALYST [facility] Blood (Blood, Arterial Line) 09/19/2023 9:51 AM SENIOR ACTUARIAL ANALYST 09/19/2023 9:51 AM SENIOR ACTUARIAL ANALYST Sarah Miller M.D., M.P.H. LAB BLOOD NON ADD-ON Performing Organization Address City/[facility]/ZIP Co de Phone Number [facility] [address] [place], [place] [address] [place] [address] [address] [place] [address] * (ABNORMAL) Calcium, Ionized (09/19/2023 9:51 AM SENIOR ACTUARIAL ANALYST) Calcium, Ionized, B 3.99(L) 4.65 - 5.30 mg/dL 09/19/2023 9:53 AM SENIOR ACTUARIAL ANALYST [facility] Blood (Blood, Arterial Line) 09/19/2023 9:51 AM SENIOR ACTUARIAL ANALYST 09/19/2023 9:51 AM SENIOR ACTUARIAL ANALYST Sarah Miller M.D., M.P.H. LAB BLOOD NON ADD-ON [facility] [address] [place] [address], [facility] [address] [place] [address] * (ABNORMAL) Blood Gas with Coox, Arterial (09/19/2023 9:51 AM SENIOR ACTUARIAL ANALYST) Pathologist [facility] pO2 339(H) 83 - 108 mm Hg 09/19/2023 9:53 AM SENIOR ACTUARIAL ANALYST [facility] pCO2 38 35 - 48 mm Hg 09/19/2023 9:53 AM SENIOR ACTUARIAL ANALYST [facility] pH 7.45 7.35 - 7.45 pH 09/19/2023 9:53 AM SENIOR ACTUARIAL ANALYST [facility] Base Excess 2 -2 - 3 mmol/L 09/19/2023 9:53 AM SENIOR ACTUARIAL ANALYST [facility] HCO3 26 22 - 26 mmol/L 09/19/2023 9:53 AM SENIOR ACTUARIAL ANALYST [facility] Hemoglobin, Venous 8.1(L) 13.2 - 16.6 g/dL 09/19/2023 9:53 AM SENIOR ACTUARIAL ANALYST [facility] O2Hb 99.1(H) 94.0 - 98.0 % 09/19/2023 9:53 AM SENIOR ACTUARIAL ANALYST [facility] COHb 1.2 <3.0 % 09/19/2023 9:53 AM SENIOR ACTUARIAL ANALYST [facility] MetHb <1.0 <1.5 % 09/19/2023 9:53 AM SENIOR ACTUARIAL ANALYST [facility] CtO2 12.2(L) 18.0 - 21.0 vol % 09/19/2023 9:53 AM SENIOR ACTUARIAL ANALYST [facility] Blood (Blood, Arterial Line) 09/19/2023 9:51 AM SENIOR ACTUARIAL ANALYST 09/19/2023 9:51 AM SENIOR ACTUARIAL ANALYST Sarah Miller M.D., M.P.H. LAB BLOOD NON ADD-ON [facility] [address] [place] [address], [facility] [address] [place] [address] * (ABNORMAL) ACT (Activated Clotting Time), POCT (09/19/2023 9:26 AM SENIOR ACTUARIAL ANALYST) [facility] Activated Clotting Time 868(H) 82 - 152 sec 09/19/2023 9:37 AM SENIOR ACTUARIAL ANALYST PCLX 09/19/2023 9:26 AM SENIOR ACTUARIAL ANALYST 09/19/2023 9:37 AM SENIOR ACTUARIAL ANALYST Unknown Provider LAB POCT ORDERABLES - DEVICE Performing Organization Address City/[facility]/ZIP Co de Phone Number POC [facility] [address] [place] [address], [facility] PCLX [facility] POC [address] [place] [address] * (ABNORMAL) Hemoglobin (HGB), POCT (09/19/2023 9:24 AM SENIOR ACTUARIAL ANALYST) Hemoglobin, POCT, B 9.8(L) 13.2 - 16.6 g/dL 09/19/2023 9:31 AM SENIOR ACTUARIAL ANALYST PCS Blood 09/19/2023 9:24 AM SENIOR ACTUARIAL ANALYST 09/19/2023 9:31 AM SENIOR ACTUARIAL ANALYST Unknown Provider LAB POCT ORDERABLES - DEVICE Performing Organization Address City/[facility] Co de Phone Number [facility]OC [facility] [address] [place] [address], [facility] PCSM [facility] POC [address] [place] [address] * Lactate, B - Intra-op (09/19/2023 8:25 AM SENIOR ACTUARIAL ANALYST) Lactate, B 0.9 0.5 - 2.2 mmol/L 09/19/2023 8:28 AM SENIOR ACTUARIAL ANALYST [facility] Blood (Blood, Venous) 09/19/2023 8:25 AM SENIOR ACTUARIAL ANALYST 09/19/2023 8:25 AM SENIOR ACTUARIAL ANALYST Radha Iqbal M.D. LAB BLOOD NON ADD-ON Performing Organization Address City/[facility]/ZIP Co de Phone Number [facility] [address] [place] [address], [facility] STMA [facility] [address] [place] [address] * Glucose, Whole Blood (09/19/2023 8:25 AM SENIOR ACTUARIAL ANALYST) Glucose 133 70 - 140 mg/dL 09/19/2023 8:28 AM SENIOR ACTUARIAL ANALYST [facility] Blood (Blood, Arterial Line) 09/19/2023 8:25 AM SENIOR ACTUARIAL ANALYST 09/19/2023 8:25 AM SENIOR ACTUARIAL ANALYST Radha Iqbal M.D. LAB BLOOD ADD-ON [facility] [address] [place], [place] [address] [place] [address] 200 [place] [address] * Potassium, Blood (09/19/2023 8:25 AM SENIOR ACTUARIAL ANALYST) Potassium, B 3.8 3.6 - 5.2 mmol/L 09/19/2023 8:28 AM SENIOR ACTUARIAL ANALYST [facility] Blood (Blood, Arterial Line) 09/19/2023 8:25 AM SENIOR ACTUARIAL ANALYST 09/19/2023 8:25 AM SENIOR ACTUARIAL ANALYST Radha Iqbal M.D. LAB BLOOD NON ADD-ON [facility] [address] [place], [place] [address] [place] [address] [address] [place] [address] * Sodium, B (09/19/2023 8:25 AM SENIOR ACTUARIAL ANALYST) Sodium, B 143 135 - 145 mmol/L 09/19/2023 8:28 AM SENIOR ACTUARIAL ANALYST [facility] Blood (Blood, Arterial Line) 09/19/2023 8:25 AM SENIOR ACTUARIAL ANALYST 09/19/2023 8:25 AM SENIOR ACTUARIAL ANALYST Radha Iqbal M.D. LAB BLOOD NON ADD-ON [facility] [address] [place], [place] [address] [place] [address] [address] [place] [address] * (ABNORMAL) Calcium, Ionized (09/19/2023 8:25 AM SENIOR ACTUARIAL ANALYST) Calcium, Ionized, B 4.50(L) 4.65 - 5.30 mg/dL 09/19/2023 8:28 AM SENIOR ACTUARIAL ANALYST [facility] Blood (Blood, Arterial Line) 09/19/2023 8:25 AM SENIOR ACTUARIAL ANALYST 09/19/2023 8:25 AM SENIOR ACTUARIAL ANALYST Radha Iqbal M.D. LAB BLOOD NON ADD-ON [facility] [address] [place] [address], [facility] STMA [facility] [address] [place] [address] * (ABNORMAL) Blood Gas with Coox, Arterial (09/19/2023 8:25 AM SENIOR ACTUARIAL ANALYST) pO2 421(H) 83 - 108 mm Hg 09/19/2023 8:28 AM SENIOR ACTUARIAL ANALYST STMA pCO2 40 35 - 48 mm Hg 09/19/2023 8:28 AM SENIOR ACTUARIAL ANALYST STMA pH 7.42 7.35 - 7.45 pH 09/19/2023 8:28 AM SENIOR ACTUARIAL ANALYST STMA Base Excess 1 -2 - 3 mmol/L 09/19/2023 8:28 AM SENIOR ACTUARIAL ANALYST STMA HCO3 26 22 - 26 mmol/L 09/19/2023 8:28 AM SENIOR ACTUARIAL ANALYST STMA Hemoglobin, Venous 9.8(L) 13.2 - 16.6 g/dL 09/19/2023 8:28 AM SENIOR ACTUARIAL ANALYST STMA O2Hb 98.6(H) 94.0 - 98.0 % 09/19/2023 8:28 AM SENIOR ACTUARIAL ANALYST STMA COHb 1.0 <3.0 % 09/19/2023 8:28 AM SENIOR ACTUARIAL ANALYST STMA MetHb <1.0 <1.5 % 09/19/2023 8:28 AM SENIOR ACTUARIAL ANALYST STMA CtO2 14.7(L) 18.0 - 21.0 vol % 09/19/2023 8:28 AM SENIOR ACTUARIAL ANALYST STMA Blood (Blood, Arterial Line) 09/19/2023 8:25 AM SENIOR ACTUARIAL ANALYST 09/19/2023 8:25 AM SENIOR ACTUARIAL ANALYST Radha Iqbal M.D. LAB BLOOD NON ADD-ON [facility] [address] [place] [address], [facility] STMA [facility] [address] [place] [address] * ACT (Activated Clotting Time), POCT (09/19/2023 8:24 AM SENIOR ACTUARIAL ANALYST) Activated Clotting Time 132 82 - 152 sec 09/19/2023 8:27 AM SENIOR ACTUARIAL ANALYST PCLX 09/19/2023 8:24 AM SENIOR ACTUARIAL ANALYST 09/19/2023 8:27 AM SENIOR ACTUARIAL ANALYST Unknown Provider LAB POCT ORDERABLES - DEVICE Performing Organization Address City/[facility] Co de Phone Number 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 History Cardiac Surgery Status Post Failure Renal Acute (Acute Kidney Injury) ([facility]) Hypertensive Heart Without Heart Failure And [...] Sun09/21/23 at 1800 Given 09/26/2023 11:39 AM SENIOR ACTUARIAL ANALYST 1,000 mg Given 09/26/2023 6:59 AM SENIOR ACTUARIAL ANALYST 1,000 mg Given 09/26/2023 12:55 AM SENIOR ACTUARIAL ANALYST 1,000 mg albuterol nebulizer solution 2.5 mg 2.5 mg, nebulization, Every 4 hours PRN, wheezing, Starting on Sun09/19/23 at 1707 amiodarone tablet 200 mg (PACERONE) 200 mg, oral, 2 times daily, First dose on Sun09/26/23 at 0900, For 4 days Given 09/26/2023 7:57 AM SENIOR ACTUARIAL ANALYST 200 mg amiodarone tablet 200 mg (PACERONE) 200 mg, oral, Daily, First dose on 09/30/23 at 0900, For 30 days aspirin chewable tablet 81 mg 81 mg, oral, Daily, First dose on Carissa 09/20/23 at 0900 Given 09/26/2023 8:00 AM SENIOR ACTUARIAL ANALYST 81 mg Given 09/25/2023 8:04 AM SENIOR ACTUARIAL ANALYST 81 mg Given 09/24/2023 8:39 AM SENIOR ACTUARIAL ANALYST 81 mg atorvastatin tablet 80 mg (LIPITOR) 80 mg, oral, Daily at bedtime, First dose on Sun09/19/23 at 2100 Given 09/25/2023 8:17 PM SENIOR ACTUARIAL ANALYST 80 mg Given 09/24/2023 8:34 PM SENIOR ACTUARIAL ANALYST 80 mg Given 09/23/2023 9:57 PM SENIOR ACTUARIAL ANALYST 80 mg benzocaine-menthoL 15-3.6 mg per lozenge [...] Use Only Refrigerate Given 09/19/2023 1:13 PM SENIOR ACTUARIAL ANALYST 1,000 mL Chest ceFAZolin 1 g in NaCl 0.9% irrigation pour bottle As needed, Starting on Sun09/19/23 at 1550, Intra-Op Given 09/19/2023 3:50 PM SENIOR ACTUARIAL ANALYST 1,000 mL cellulose, oxidized 6 X 9 pad (SURGICEL NU-KNIT) As needed, Starting on Sun09/19/23 at 1313, Intra-Op Given 09/19/2023 1:13 PM SENIOR ACTUARIAL ANALYST 1 each Chest electrolyte-A solution (PLASMA-LYTE A) Continuous Infusion: Per Instructions PRN, Starting on Sun09/19/23 at 1015, Intra-Op New Bag 09/19/2023 10:15 AM SENIOR ACTUARIAL ANALYST 500 mL Other finasteride tablet 5 mg (PROSCAR) 5 mg, oral, Daily, First dose on Sun09/21/23 at 0900, Hold with indwelling urinary catheter See tube feeding guidelines for tube feeding administration instructions. Given 09/26/2023 8:00 AM SENIOR ACTUARIAL ANALYST 5 mg Given 09/25/2023 8:07 AM SENIOR ACTUARIAL ANALYST 5 mg Given 09/24/2023 8:39 AM SENIOR ACTUARIAL ANALYST 5 mg furosemide tablet 20 mg (LASIX) 20 mg, oral, Daily, First dose on Sun09/26/23 at 0900 Given 09/26/2023 8:01 AM SENIOR ACTUARIAL ANALYST 20 mg HYDROmorphone (PF) injection 0.2 mg [...] writing Insulin orders Given 09/26/2023 11:39 AM SENIOR ACTUARIAL ANALYST 4 Units Left Upper Arm (Back ) Given 09/26/2023 7:59 AM SENIOR ACTUARIAL ANALYST 2 Units Le ft Upper Arm (Back) Given 09/25/2023 5:42 PM SENIOR ACTUARIAL ANALYST 4 Units Le ft Upper Arm (Back) ipratropium-albuteroL 0.5-2.5 mg/3 mL nebulizer solution 3 mL (DUONEB) 3 mL, nebulization, 3 times daily, First dose on Sun09/24/23 at 1015 Given 09/25/2023 8:05 AM SENIOR ACTUARIAL ANALYST 3 mL Given 09/24/2023 8:34 PM SENIOR ACTUARIAL ANALYST 3 mL Given 09/24/2023 10:23 AM SENIOR ACTUARIAL ANALYST 3 mL lactulose solution 20 g (CHRONULAC) [...] 12 hours Medication Applied 09/20/2023 1:42 AM SENIOR ACTUARIAL ANALYST 1 patch Chest melatonin tablet 10 mg 10 mg, oral, Bedtime PRN, sleep, Starting on Sun09/20/23 at 2007 Given 09/20/2023 8:44 PM SENIOR ACTUARIAL ANALYST 10 mg metoclopramide tablet 5 mg (REGLAN) 5 mg, oral, Every 8 hours PRN, hiccups, Starting on Sun09/25/23 at 1053 metoprolol tartrate tablet 25 mg (LOPRESSOR) 25 mg, oral, 2 times daily, First dose (after last modification) on Sun09/20/23 at 2100 Given 09/26/2023 8:00 AM SENIOR ACTUARIAL ANALYST 25 mg Given 09/25/2023 8:17 PM SENIOR ACTUARIAL ANALYST 25 mg Given 09/25/2023 8:04 AM SENIOR ACTUARIAL ANALYST 25 mg naloxone injection 0.2 mg (NARCAN) [...] take oral medications. Given 09/20/2023 1:42 AM SENIOR ACTUARIAL ANALYST 10 mg oxyCODONE IR tablet 5 [...] or split tablet. Given 09/26/2023 6:59 AM SENIOR ACTUARIAL ANALYST 40 mg Given 09/25/2023 6:54 AM SENIOR ACTUARIAL ANALYST 40 mg Given 09/24/2023 5:23 AM SENIOR ACTUARIAL ANALYST 40 mg polyethylene glycol powder packet [...] For restless legs Given 09/26/2023 1:19 PM SENIOR ACTUARIAL ANALYST 0.5 mg Given 09/26/2023 7:58 AM SENIOR ACTUARIAL ANALYST 0.5 mg Given 09/25/2023 8:17 PM SENIOR ACTUARIAL ANALYST 0.5 mg sennosides-docusate sodium 8.6-50 mg per tablet 2 tablet (SENOKOT-S) 2 tablet, oral, Daily at bedtime, First dose (after last modification) on Sun09/24/23 at 2100, Hold for loose stool simethicone chewable tablet 125 mg (MYLICON) 125 mg, oral, Every 6 hours PRN, flatulence, Starting on Sun09/19/23 at 1707 Given 09/20/2023 8:03 AM SENIOR ACTUARIAL ANALYST 125 mg tamsulosin 24 hr capsule 0.4 mg (FLOMAX) 0.4 mg, oral, Daily, First dose on Sun09/21/23 at 0900, Hold if indwelling urinary catheter in place Swallow whole. Do NOT crush, chew or open capsule. Given 09/26/2023 8:00 AM SENIOR ACTUARIAL ANALYST 0.4 mg Given 09/25/2023 8:04 AM SENIOR ACTUARIAL ANALYST 0.4 mg Given 09/24/2023 8:39 AM SENIOR ACTUARIAL ANALYST 0.4 mg thrombin (human plasma)-tpkhuolhru-yezhtfymh-Mt topical solution ([facility]) As needed, Starting on Sun09/19/23 at 1214, Intra-Op Given 09/19/2023 12:14 PM SENIOR ACTUARIAL ANALYST 10 mL Ch est vancomycin powder As needed, Starting on Sun09/19/23 at 1315, Intra-Op Given 09/19/2023 1:55 PM SENIOR ACTUARIAL ANALYST 1 g vancomycin powder As needed, Starting on Sun09/19/23 at 1611, Intra-Op Given 09/19/2023 4:11 PM SENIOR ACTUARIAL ANALYST 1 g warfarin management (COUMADIN) oral, Daily, First dose on Sun09/21/23 at 0745, Pharmacist to Dose: Yes, Target INR: 2 - 3, Comorbidities that constitute Warfarin Sensitivity: Post-cardiac valve surgery, Indication: Aortic valve - Mechanical, Therapy type: New Warfarin therapy documented in this encounter Active and Recently Administered Medications Times are shown in SENIOR ACTUARIAL ANALYST. Scheduled Medication Order 09/24/2023 09/25/2023 09/26/2023 [...] documented as of this encounter Care Teams Neurology Manager Relationship Specialty Start Date End Date Elsewhere, Pcp PCP - General Internal Medicine 08/19/23 09/27/23 documented as of this encounter
--- OUTSIDE RECORDS SUMMARY | 2023-12-07 11:29 | XMS_ITS | Encounter Summary ---
Author Name Unknown Organization [facility] Address [address] [place] [address] Care Team Providers Care Switch Operators Supervisor Name Role Phone Elsewhere, Pcp Primary Care Provider Unavailabl e Encounter Details Date Type Department Care Team (Latest Contact Info) Description 09/18/2023 9:45 AM MARINATOR Office Visit Department of Cardiovascular Surgery in [place], [place] [address] [place] [phone] Elvi Oliva, TIBURCIOS, P.A.-C. [address] [place] [phone] Stenosis Aortic Valve Acquired (Primary Dx); Hypertensive [...] REFERRING PHYSICIAN: No ref. provider found Home auctioneer art: [facility] Home primary care provider: Dr. [place], [place] SUBJECTIVE CHIEF COMPLAINT / REASON FOR [...] 08/19/2023 for additional information. Patient presented to [place] [place] ED for chest discomfort on 08/19/2023. Patient [...] ANGIOGRAPHY; Surgeon: Ezequiel Jack M.D.; Location: [facility] Family History Problem Relation Age of [...] Rate (GFR) 30 To 44 ([facility]) #3 Hypertension Essential Primary #4 Atrial Fibrillation Paroxysmal ([facility]) #5 Hemiplegia Dominant Side Right ([facility]) #6 Anemia In Chronic Kidney Disease #7 Benign Prostatic Hyperplasia Without Obstruction #8 Diabetes Mellitus Type 2 ([facility]) #9 Hyperlipidemia On Treatment #10 Stroke [...] DM 2 For postoperative care: Consult social organization professor on the inpatient setting, patient's is having [...] 3596) pamphlet; Your guide to Cardiac Surgery [id number]; Surgical Site Infection: Reducing Your Risk (MC 6471); Central Venous Catheter Infection: Reducing Your Risk (WC6948). Patient instructed to report to [facility] for Bactroban prescription. Application instructions [...] of the patient today. Time includes both kxa-bxzc-wr-face euxvgrc-gs-zaur patient care. MADHAV Chong, P.A.-C. NATOR documented in this encounter Plan of Treatment Upcoming Encounters Date Type Department Care Team (Latest Contact Info) Description 12/21/2023 10:15 AM MARINATOR Clinical Communication Virtual Review in [place], [place] 200 [place] [address] 12/24/2023 2:00 PM MARINATOR Comprehensive Visit Department of Cardiovascular Medicine in [place], [place] [address] [place] [phone] Gudelia Soto M.D. [address] [place] [phone] 01/01/2024 3:45 PM MARINATOR Comprehensive Visit Division of Hematology in [place], [place] [address] [place] [phone] Billy Segal APRN, C.N.P., D.N.P. [address] [place] [phone] documented as of this encounter Visit Diagnoses [...] documented as of this encounter Care Teams Switch Operators Supervisor Relationship Specialty Start Date End Date Elsewhere, Pcp PCP - General Internal Medicine 08/19/23 09/27/23 documented as of this encounter
--- OUTSIDE RECORDS SUMMARY | 2023-12-07 11:29 | XMS_ITS | Encounter Summary ---
Author Name Unknown Organization [facility] Address [address] [place] [address] Care Team Providers Care Viner Operator Name Role Phone Elsewhere, Pcp Primary Care Provider Unavailabl e Reason for Visit * Outpatient (Routine) - Closed Specialty Diagnoses / Procedures Referred By Sebas t Referred To Contact Anesthesiology Diagnoses Stenosis Aortic Valve Acquired Acquired Aortic Valve Disorder Norman Roca APRN, C.N.P., D.N.P. [address] [place] [phone] [facility] Referral ID Status Reason Start Date Expiration Date Visits Re quested Visits Authorized [id number] Closed 09/05/2023 09/04/2024 1 1 Encounter Details Date Type Department Care Team (Late st Contact Info) Description 09/11/2023 8:45 AM CDT Telemedicine Preoperative Evaluation Center in [place], [place] [address] [place] [phone] Norman Roca APRN, C.N.P., D.N.P. [address] [place] [phone] Fanny Villalobos APRN, C.N.P., D.N.P. [address] [place] [phone] Anemia Of Chronic Disease (Primary Dx); Anemia [...] CRP <3.0 09/05/2023 EGFR 38 (L) 08/22/2023 [id number] 123 (L) 09/05/2023 FOLATE 14.5 09/05/2023 Family/personal [...] an EPO injection that day in the [facility] infusion therapy Center. RECOMMENDATIONS: Anemia Treatment Recommendations: 2000 mcg vitamin B12 daily until surgery, may schedule EPO injection September 18 pending hemoglobin result. PATIENT EDUCATION: Patient education 0137-10 Treating anemia before surgery sent to patient via portal and reviewed with patient. All questions have been answered. Consult conducted via real-time audio/video technology by Fanny Stanton APRN, C.N.Michaela, D.[facility] to the patient in the patient's home. documented in this encounter Plan of Treatment Upcoming Encounters Date Type Department Care Team (Latest Contact Info) Description 12/21/2023 10:15 AM HOP SORTER Clinical Communication Virtual Review in [place], [place] 200 [place] [address] 12/24/2023 2:00 PM HOP SORTER Comprehensive Visit Department of Cardiovascular Medicine in [address] [phone] Gudelia Soto M.D. [address] [place] [phone] 01/01/2024 3:45 PM HOP SORTER Comprehensive Visit Division of Hematology in [address] [phone] Billy Segal APRN, C.N.P., D.N.P. 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
--- OUTSIDE RECORDS SUMMARY | 2023-12-07 11:29 | XMS_ITS | Encounter Summary ---
Author Name Unknown Organization [facility] Address [address] [place] [address] Care Team Providers Care Teacher Visually Impaired Name Role Phone Elsewhere, Pcp Primary Care Provider Unavailabl e Encounter Details Date Type Department Care Team (Late st Contact Info) Description 09/18/2023 9:00 AM SALES AND SERVICE ENGINEER Education Department of Cardiovascular Surgery in [place], [place] [address] [place] [phone] Norman Roca, PIERRE, C.N.P., D.N.P. [address] [place] [phone] Dona Kong, R.N. [address] [place] [phone] Stenosis Aortic Valve Acquired; Acquired Aortic Valve [...] living situation today? I have a [facility] place to live 08/29/2023 Sex and Gender Information Value Date Recorded Sex Assigned at Male 08/29/2023 11:06 AM CDT Gender Identity Male 08/29/2023 11:06 AM CDT Sexual Orientation Straight 08/29/2023 11 :06 AM CDT documented as of this encounter Last Filed Vital Signs Vital Sign Reading Time Taken Comments Blood Pressure 143/81 09/18/2023 9:24 AM SALES AND SERVICE ENGINEER Pulse 80 09/18/2023 9:24 AM SALES AND SERVICE ENGINEER Temperature 36.6 ??C (97.8 ??F) 09/18/2023 9:24 AM CS T Respiratory Rate - - Oxygen Saturation 97% 09/18/2023 9:24 AM SALES AND SERVICE ENGINEER Inhaled Oxygen Concentration - - Weight 85.6 kg (188 lb 13.2 oz) 09/18/2023 9:24 AM SALES AND SERVICE ENGINEER Height 173.2 cm (5' 8.19) 09/18/2023 9:24 AM CS T Body Mass Index 28.55 09/18/2023 9:24 AM SALES AND SERVICE ENGINEER documented in this encounter Progress Notes * [...] for Remote Patient Monitoring. Dona Kong R.N. S AND SERVICE ENGINEER documented in this encounter Plan of Treatment Upcoming Encounters Date Type Department Care Team (Latest Contact Info) Description 12/21/2023 10:15 AM SALES AND SERVICE ENGINEER Clinical Communication Virtual Review in [place], [place] 200 [place] [address] 12/24/2023 2:00 PM SALES AND SERVICE ENGINEER Comprehensive Visit Department of Cardiovascular Medicine in [place], [place] [address] [place] [phone] Gudelia Soto M.D. [address] [place] [phone] 01/01/2024 3:45 PM SALES AND SERVICE ENGINEER Comprehensive Visit Division of Hematology in [address] [phone] Billy Segal APRN, C.N.P., D.N.P. [address] [place] [phone] documented as of this encounter Visit Diagnoses Diagnosis Stenosis Aortic Valve Acquired Acquired Aortic Valve Disorder documented in this encounter Additional Health Concerns Assessment Noted Time PHQ-9 Depression Total Score: 1 09/10/20 2:06 PM CDT documented as of this encounter Care Teams Teacher Visually Impaired Relationship Specialty Start Date End Date Elsewhere, Pcp PCP - General Internal Medicine 08/19/23 09/27/23 documented as of this encounter
--- OUTSIDE RECORDS SUMMARY | 2023-12-07 11:29 | XMS_ITS | Encounter Summary ---
Author Name Unknown Organization [facility] Address [address] [place] [address] Care Team Providers Care Rn Bsn Name Role Phone Elsewhere, Pcp Primary Care Provider Unavailabl e Reason for Visit * Outpatient (Routine) - Closed Specialty Diagnoses / Procedures Referred By Sebas t Referred To Contact Pharmacy Diagnoses Stenosis Aortic Valve Acquired Acquired Aortic Valve Disorder Norman Roca APRN, C.N.P., D.N.P. [address] [place] [phone] [facility] Referral ID Status Reason Start Date Expiration Date Visits Re quested Visits Authorized [id number] Closed 09/05/2023 09/04/2024 1 1 Encounter Details Date Type Department Care Team (Late st Contact Info) Description 09/13/2023 12:40 PM CDT Virtual Visit Department of Pharmacy in [place], [place] [address] [place] [phone] Norman Roca APRN, C.N.P., D.N.P. [address] [place] [phone] Gena May, Luis Carlos.D., R.Ph. [address] [place] [phone] Stenosis Aortic Valve Acquired; Acquired Aortic [...] (Latest Contact Info) Description 12/21/2023 10:15 AM MANAGER TITLE Clinical Communication Virtual Review in [place], [place] 200 [place] [address] 12/24/2023 2:00 PM MANAGER TITLE Comprehensive Visit Department of Cardiovascular Medicine in [place], [place] [address] [place] [phone] Gudelia Soto M.D. [address] [place] [phone] 01/01/2024 3:45 PM MANAGER TITLE Comprehensive Visit Division of Hematology in [place], [place] [address] [place] [phone] Billy Segal APRN, C.N.P., D.N.P. [address] [place] [phone] documented as of this encounter Visit Diagnoses Diagnosis Stenosis Aortic Valve Acquired Acquired Aortic Valve Disorder documented in this encounter Additional Health Concerns Assessment Noted Time PHQ-9 Depression Total Score: 1 09/10/20 2:06 PM CDT documented as of this encounter Care Teams Rn Bsn Relationship Specialty Start Date End Date Elsewhere, Pcp PCP - General Internal Medicine 08/19/23 09/27/23 documented as of this encounter
--- OUTSIDE RECORDS SUMMARY | 2023-12-07 11:29 | XMS_ITS | Encounter Summary ---
Author Name Unknown Organization [facility] Address [address] [place] [address] Care Team Providers Care Lubricating Machine Tender Name Role Phone Elsewhere, Pcp Primary Care Provider Unavailabl e Reason for Referral * Outpatient (Routine) - Closed Specialty Diagnoses / Procedures Referred By Contac t Referred To Contact Anesthesiology Diagnoses Stenosis Aortic Valve Acquired Acquired Aortic Valve Disorder Norman Roca APRN, C.N.P., D.N.P. [address] [place] [phone] [facility] Referral ID Status Reason Start Date Expiration Date Visits Re quested Visits Authorized [id number] Closed 09/05/2023 09/04/2024 1 1 * Outpatient (Routine) - Closed Specialty Diagnoses / Procedures Referred By Contac t Referred To Contact Pharmacy Diagnoses Stenosis Aortic Valve Acquired Acquired Aortic Valve Disorder Norman Roca APRN, C.N.P., D.N.P. [address] [place] [phone] [facility] Referral ID Status Reason Start Date Expiration Date Visits Re quested Visits Authorized [id number] Closed 09/05/2023 09/04/2024 1 1 * Specialty Diagnoses / Procedures Referred By Contac t Referred To Contact Norman Roca APRN, C.NKory, D.N.P. [address] [place] [address] [facility] Referral ID Status Reason Start Date Expiration Date Visits Re quested Visits Authorized Encounter Details Date Type Department Care Team (Late st Contact Info) Description 09/05/2023 3:00 PM CDT Office Visit Department of Cardiovascular Surgery in [place], [place] [address] [place] [address] Norman Roca APRN, C.N.P., Emilia.N.P. [address] [place] [phone] Acquired Aortic Valve Disorder (Primary Dx); Stenosis [...] your living situation today? I have a [facility] place to live 08/29/2023 Sex and Gender [...] of the patient today. Time includes both cyl-exlf-sa-face qixyzsa-ob-wvay patient care. Bret Roca APRN, Cata.N.P., D.N.P. documented in this encounter Plan of Treatment Upcoming Encounters Date Type Department Care Team (Latest Contact Info) Description 12/21/2023 10:15 AM CLERK GENERAL Clinical Communication Virtual Review in [place], [place] [address] [place] [address] 12/24/2023 2:00 PM CLERK GENERAL Comprehensive Visit Department of Cardiovascular Medicine in [address] [phone] Gudelia Soto M.D. [address] [place] [phone] 01/01/2024 3:45 PM CLERK GENERAL Comprehensive Visit Division of Hematology in [address] [phone] Billy Segal APRN, C.N.P., D.N.P. [address] [place] [phone] Scheduled Referrals Name Type Priority Associated Diagnoses [...] (with Reflex Antibody ID) (09/18/2023 9:04 AM CLERK GENERAL) ABORh A Neg Not applicable 09/18/2023 10:53 AM CLERK GENERAL STRM Antibody Screen Negative Negative 09/18/2023 11:09 AM CLERK GENERAL STRM Type & Screen Expiration 11/16/2023 23:59 09/18/2023 10:53 AM CLERK GENERAL STRM Testing Location Mercedes DEFAULT 09/18/2023 10:24 AM CLERK GENERAL STRM Blood (Blood, Venous) 09/18/2023 9:04 AM CLERK GENERAL 09/18/2023 10:24 AM CLERK GENERAL Norman Roca APRN, C.N.P., D.N.P. L AB BLOOD BANK TEST ORDERABLES [facility] [address] [place] [address], [facility] [address] [place] [address] * (ABNORMAL) Basic Metabolic Panel (09/18/2023 9:04 AM CLERK GENERAL) Potassium, S 4.5 3.6 - 5.2 mmol/L 09/18/2023 10:19 AM CLERK GENERAL DTL Sodium, S 141 135 - 145 mmol/L 09/18/2023 10:19 AM CLERK GENERAL DTL Chloride, S 106 98 - 107 mmol/L 09/18/2023 10:19 AM CLERK GENERAL DTL Bicarbonate, S 26 22 - 29 mmol/L 09/18/2023 10:19 AM CLERK GENERAL DTL Anion Gap 9 7 - 15 09/18/2023 10:19 AM CLERK GENERAL DTL BUN (Blood Urea Nitrogen), S 20 8 - 24 mg/dL 09/18/2023 10:19 AM CLERK GENERAL DTL Creatinine 1.76(H) 0.74 - 1.35 mg/dL 09/18/2023 10:19 AM CLERK GENERAL DTL Estimated GFR (eGFR) 41(L) >=60 mL/min/BSA 09/18/2023 10:19 AM CLERK GENERAL DTL Comment: Estimated GFR calculated using the 2020 CKD_EPI creatinine equation. Calcium, Total, S 9.1 8.8 - 10.2 mg/dL 09/18/2023 10:19 AM CLERK GENERAL DTL Glucose, S 196(H) 70 - 140 mg/dL 09/18/2023 10:19 AM CLERK GENERAL DTL Blood (Blood, Venous) 09/18/2023 9:04 AM CLERK GENERAL 09/18/2023 9:54 AM CLERK GENERAL Radha Mendez APRNN.Fritz., D.N.P. L AB BLOOD ADD-ON [facility] [place] [address] [place], [place] [phone] [place] [address] DTL [facility] [address] [place] [address] * (ABNORMAL) CBC without Differential (09/18/2023 9:04 AM CLERK GENERAL) Hemoglobin 12.0(L) 13.2 - 16.6 g/dL 09/18/2023 10:00 AM CLERK GENERAL DTL Hematocrit 35.8(L) 38.3 - 48.6 % 09/18/2023 10:00 AM CLERK GENERAL DTL Erythrocytes 3.94(L) 4.35 - 5.65 x10(12)/L 09/18/2023 10:00 AM CLERK GENERAL DTL MCV 90.9 78.2 - 97.9 fL 09/18/2023 10:00 AM CLERK GENERAL DTL RBC Distrib Width 12.2 11.8 - 14.5 % 09/18/2023 10:00 AM CLERK GENERAL DTL Platelet Count 182 135 - 317 x10(9)/L 09/18/2023 10:00 AM CLERK GENERAL DTL Leukocytes 5.2 3.4 - 9.6 x10(9)/L 09/18/2023 10:00 AM CLERK GENERAL DTL Blood (Blood, Venous) 09/18/2023 9:04 AM CLERK GENERAL 09/18/2023 9:35 AM CLERK GENERAL Cata Mendez APRN.N.P., D.N.P. L AB BLOOD ADD-ON [facility] [place] [address] [place] [address], [facility] DTL [facility] [place] [address] [place] [address] * (ABNORMAL) CBC-Preop with reflex anemia panel [...] (Blood, Venous) 09/05/2023 3:22 PM CDT Narrative [facility] [place] - 09/05/2023 3:39 PM CDT Specimen Information: Specimen ID: [id number] Specimen Type: Blood Specimen Collection Start Date: 09/05/2023 ??3:22 PM Specimen ID: [id number] Specimen Type: Blood Specimen Collection Start Date: 09/05/2023 ??3:22 PM Specimen Received Date: 09/05/2023 ??3:32 PM Specimen ID: [id number] Specimen Type: Blood Specimen Collection Start Date: 09/05/2023 ??3:22 PM Norman Roca APRN, C.N.P., D.N.P. L AB BLOOD ADD-ON [facility] [place] [address] [place] [address], [facility] DTL [facility] [place] [address] [place] [address] documented in this encounter Visit Diagnoses Diagnosis Acquired Aortic Valve Disorder- Primary Stenosis Aortic Valve Acquired Stenosis Aortic Valve Acquired Acquired Aortic Valve Disorder documented in this encounter Additional Health Concerns Assessment Noted Time PHQ-9 Depression Total Score: 0 08/20/20 23 12:00 PM CDT documented as of this encounter Care Teams Lubricating Machine Tender Relationship Specialty Start Date End Date Elsewhere, Pcp PCP - General Internal Medicine 08/19/23 09/27/23 documented as of this encounter
--- OUTSIDE RECORDS SUMMARY | 2023-12-07 11:29 | XMS_ITS | Encounter Summary ---
Author Name Unknown Organization [facility] Address [address] [place] [address] Care Team Providers Care Caddie Name Role Phone Elsewhere, Pcp Primary Care Provider Unavailabl e Encounter Details Date Type Department Care Team ([facility] st Contact Info) Description 09/06/2023 Orders Only Preoperative Evaluation Center in [place], [place] [address] [place] [phone] Fanny Villalobos, PIERRE, C.N.P., D.N.P. [address] [place] [address] Anemia In Chronic Kidney Disease (Primary Dx); [...] your living situation today? I have a [facility] place to live 08/29/2023 Sex and Gender Information Value Date Recorded Sex Assigned at Male 08/29/2023 11:06 AM CDT Gender Identity Male 08/29/2023 11:06 AM CDT Sexual Orientation Straight 08/29/2023 11 :06 AM CDT documented as of this encounter Plan of Treatment Upcoming Encounters Date Type Department Care Team (Latest Contact Info) Description 12/21/2023 10:15 AM PLUG SORTER Clinical Communication Virtual Review in [place], [place] [address] [place] [address] 12/24/2023 2:00 PM PLUG SORTER Comprehensive Visit Department of Cardiovascular Medicine in [place], [place] [address] [place] [address] Gudelia Soto M.D. [address] [place] [address] 01/01/2024 3:45 PM PLUG SORTER Comprehensive Visit Division of Hematology in [place], [place] [address] [place] [address] Billy Segal APRN, C.N.P., D.N.P. 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
--- OUTSIDE RECORDS SUMMARY | 2023-12-07 11:29 | XMS_ITS | Encounter Summary ---
Author Name Unknown Organization [facility] Address [address] [place] [id number] Care Team Providers Care Power Wheelchair Mechanic Name Role Phone Elsewhere, Pcp Primary Care Provider Unavailabl e Reason for Visit * Auth/Cert (Routine) Specialty Diagnoses / Procedures Referred By Sebas t Referred To Contact Diagnoses Stenosis Aortic Valve Acquired Stenosis Aortic Valve Acquired [I35.0] Procedures AR RPLC AORTIC VLV W PROSTH VLV AR COR ART BYPASS 1 COR JORDAN GRAFT AR REOP COR ART BYP/VALVE PROC AR ENDO SURG W VA HARVEST CABG AR EXCL DAHIANA OPN OTH PX ANY METH REPLACEMENT AORTIC VALVE 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 - REDO LIGATION LEFT ATRIAL APPENDAGE ISOLATION PULMONARY VEIN Referral ID Status Reason Start Date Expiration Date Visits Re quested Visits Authorized [id number] 1 1 Encounter Details Date Type Department Care Team (Late st Contact Info) Description 09/19/2023 7:30 AM SENIOR WEB DESIGNER Anesthesia Event [facility] OR [address] [place] [phone] Rowena Antonio M.D. [address] [place] [phone] Peyton Corbin, Ryan.Tab., L.R.T. [address] [place] [phone] Anesthesia Record Procedure Summary Procedure Name Responsible [...] Chlorhexidine (Preferred); Technique: Anatomical landmarks; Inserted by: [facility]; Insertion Attempts: 1; Removal Date: 09/21/23; Removal [...] Notes * Anesthesia Postprocedure Evaluation - Miguel Vieds, OVEN DUMPER, BERTO, DNAP - 09/19/2023 5:19 PM CST Patient: Jong Nieto Steven Procedure Summary Date: 09/19/23 Room / Location: [place] [address] / [facility] [place] [facility] [place], [place] Anesthesia Start: 729 Anesthesia Stop: 1718 [...] status: hypo or hypervolemic requiring ongoing treatment OR WEB DESIGNER * Anesthesia Procedure Notes - Radha Iqbal M.D. - 09/19/2023 8:55 AM SENIOR WEB DESIGNER Associated Order(s): Airway Airway Date/Time: 09/19/2023 7:52 [...] Procedure outcome: successful Airway event: no complications OR WEB DESIGNER * Anesthesia Procedure Notes - Radha Iqbal M.D. - 09/19/2023 8:15 AM SENIOR WEB DESIGNER Associated Order(s): Invasive Catheter Invasive Catheter Date/Time: [...] fellow participated in the procedure, and the call center consultant was present for the entire procedure. OR WEB DESIGNER * Anesthesia Procedure Notes - Radha Iqbal M.D. - 09/19/2023 8:11 AM SENIOR WEB DESIGNER Associated Order(s): Invasive Catheter Invasive Catheter Date/Time: [...] fellow participated in the procedure, and the call center consultant was present for the entire procedure. OR WEB DESIGNER * Anesthesia Procedure Notes - Radha Iqbal M.D. - 09/19/2023 7:58 AM SENIOR WEB DESIGNER Associated Order(s): EDMUNDO EDMUNDO Date/Time: 09/19/2023 7:55 [...] fellow participated in the procedure, and the call center consultant was present for the entire procedure. OR WEB DESIGNER * Anesthesia Preprocedure Evaluation - Deja Barney M.D. - 09/19/2023 7:33 AM CST Preprocedure Anesthesia & H&P Assessment Procedure Summary Date/Time: 09/19/23 0700 Procedures: REPLACEMENT AORTIC VALVE, POSSIBLE AORTIC ROOT ENLARGEMENT. (Chest) CORONARY ARTERY BYPASS GRAFT X1, VEIN. (Chest) LIGATION LEFT ATRIAL APPENDAGE. ISOLATION PULMONARY VEIN. (Chest) Diagnosis: Stenosis Aortic Valve Acquired [I35.0] Pre-op diagnosis: Stenosis Aortic Valve Acquired [I35.0]. Location: [place] [address] / [facility] [place] in [place], [place] Providers: Sarah Miller M.D., M.P.H. Pertinent [...] with patient /legal guardian or through an electrical and instrument engineer. Risks/Benefits/Alternatives of Blood transfusion discussed with patient / legal guardian, includingan opportunity to ask questions and/or decline some or all transfusion therapies. The patient / legal guardian consented to the use of all blood products, as deemed medically necessary Approval to Proceed: approved for anesthesia OR WEB DESIGNER * Anesthesia Preprocedure Evaluation - Deja Barney M.D. - 09/19/2023 7:15 AM CST Preprocedure Anesthesia & H&P Assessment Procedure Summary Anesthesia Start Date/Time: 09/19/23729 Procedures: REPLACEMENT AORTIC VALVE, POSSIBLE AORTIC ROOT ENLARGEMENT. (Chest) CORONARY ARTERY BYPASS GRAFT X1, VEIN. (Chest) LIGATION LEFT ATRIAL APPENDAGE. ISOLATION PULMONARY VEIN. (Chest) Diagnosis: Stenosis Aortic Valve Acquired [I35.0] Pre-op diagnosis: Stenosis Aortic Valve Acquired [I35.0]. Location: [place] [address] / [facility] [place] in [place], [place] Providers: Sarah Miller M.D., M.P.H. Pertinent [...] with patient /legal guardian or through an electrical and instrument engineer. Risks/Benefits/Alternatives of Blood transfusion discussed with patient / legal guardian, includingan opportunity to ask questions and/or decline some or all transfusion therapies. The patient / legal guardian consented to the use of all blood products, as deemed medically necessary Approval to Proceed: approved for anesthesia OR WEB DESIGNER documented in this encounter Plan of Treatment Upcoming Encounters Date Type Department Care Team (Latest Contact Info) Description 12/21/2023 10:15 AM SENIOR WEB DESIGNER Clinical Communication Virtual Review in [address] [address] 12/24/2023 2:00 PM SENIOR WEB DESIGNER Comprehensive Visit Department of Cardiovascular Medicine in [address] [phone] Gudelia Soto M.D. [address] [place] [phone] 01/01/2024 3:45 PM SENIOR WEB DESIGNER Comprehensive Visit Division of Hematology in [address] [phone] Billy Segal APRN, C.N.P., D.N.P. [address] [place] [phone] documented as of this encounter Procedures Procedure Name Priority Date/Time Associated Diagnosis Comments MC ANE CENTRAL LINE GENERIC PERFORMABLE Routine 09/19/2023 8:06 AM SENIOR WEB DESIGNER LDA ANE INTRODUCER ONLY Routine 09/19/2023 8:06 AM SENIOR WEB DESIGNER LDA ANE PA CATH Routine 09/19/2023 8:06 AM SENIOR WEB DESIGNER MC ANE INVASIVE CATH WITH ULTRASOUND Routine 09/19/2023 8:06 AM SENIOR WEB DESIGNER AR INS/PLC FLOW DIR CATH Routine 09/19/2023 8:06 AM SENIOR WEB DESIGNER AR US GUIDE VASC ACCESS Routine 09/19/2023 8:06 AM SENIOR WEB DESIGNER AR ECHO EDMUNDO 2D PLC ONLY Routine 09/19/2023 7:55 AM SENIOR WEB DESIGNER AIRWAY MANAGEMENT Routine 09/19/2023 7:5 2 AM SENIOR WEB DESIGNER LDA ANE ARTERIAL LINE INSERTION Routine 09/19/2023 7:43 AM SENIOR WEB DESIGNER AR ARTL CATH/CNULA MONITOR PERC Routine 09/19/2023 7:43 AM SENIOR WEB DESIGNER documented in this encounter Results * AR US GUIDE VASC ACCESS, AR INS/PLC FLOW DIR CATH, MC ANE INVASIVE CATH WITH ULTRASOUND, LDA ANE PACATH, LDA ANE INTRODUCER ONLY, MC ANE CENTRAL LINE GENERIC PERFORMABLE (09/19/2023 8:06 AM SENIOR WEB DESIGNER) Narrative Deja Barney M.D. - 09/19/2023 8:06 AM SENIOR WEB DESIGNER Radha Iqbal M.D. ? 09/19/2023 ??8:13 AM Invasive Catheter Date/Time: 09/19/2023 8:06 AM Performed by: Rahda Ibqal M.D. Authorized by: Radha Iqbal M.D. ?? [...] fellow participated in the procedure, and the call center consultant was present for the entire procedure. Radha Iqbal M.D. PROCEDURE/MINOR SURG ICAL ORDERABLES * AR ECHO EDMUNDO 2D PLC ONLY (09/19/2023 7:55 AM SENIOR WEB DESIGNER) Narrative Deja Barney M.D. - 09/19/2023 7:55 AM SENIOR WEB DESIGNER Radha Iqbal M.D. ? 09/19/2023 ??8:01 AM [...] fellow participated in the procedure, and the call center consultant was present for the entire procedure. Radha Iqbal M.D. ANESTHESIA ORDERABLE S * Airway (09/19/2023 7:52 AM SENIOR WEB DESIGNER) Narrative Radha Iqbal M.D. - 09/19/2023 7:52 AM SENIOR WEB DESIGNER Radha Iqbal M.D. ? 09/19/2023 ??8:56 AM [...] Radha Iqbal M.D. ANESTHESIA ORDERABLE S * AR ARTL CATH/CNULA MONITOR PERC, LDA ANE ARTERIAL LINE INSERTION (09/19/2023 7:43 AM SENIOR WEB DESIGNER) Narrative Deja Barney M.D. - 09/19/2023 7:43 AM SENIOR WEB DESIGNER Radha Iqbal M.D. ? 09/19/2023 ??8:19 AM [...] fellow participated in the procedure, and the call center consultant was present for the entire procedure. [...] 1335, Anesthesia Intra-op Given 09/19/2023 1:35 PM SENIOR WEB DESIGNER 1,000 mg caffeine-sodium benzoate injection intravenous, As needed, Starting on Sun09/19/23 at 1712, Anesthesia Intra-op Given 09/19/2023 5:12 PM SENIOR WEB DESIGNER 250 mg calcium chloride injection intravenous, As needed, Starting on Sun09/19/23 at 1220, Anesthesia Intra-op Given 09/19/2023 4:44 PM SENIOR WEB DESIGNER 500 mg Given 09/19/2023 4:42 PM SENIOR WEB DESIGNER 500 mg Given 09/19/2023 3:54 PM SENIOR WEB DESIGNER 1,000 mg ceFAZolin injection 2,000 mg (ANCEF) [...] Indications: Prophylaxis, surgical Given 09/19/2023 3:52 PM SENIOR WEB DESIGNER 2 g Given 09/19/2023 11:47 AM SENIOR WEB DESIGNER 2 g Given 09/19/2023 8:47 AM SENIOR WEB DESIGNER 2 g clevidipine 0.5 mg/mL bolus (CLEVIPREX) intravenous, As needed, Starting on Sun09/19/23 at 0931, Anesthesia Intra-op Given 09/19/2023 3:44 PM SENIOR WEB DESIGNER 0.125 m g Given 09/19/2023 9:31 AM SENIOR WEB DESIGNER 0.25 mg clevidipine 0.5 mg/mL infusion (CLEVIPREX) [...] Per Provider New Bag 09/19/2023 4:16 PM SENIOR WEB DESIGNER 2 mg/hr 4 mL/hr [place] Cardioplegia solution: potassium chloride 26 mEq, magnesium sulfate 2 g, lidocaine (PF) 130 mg, mannitol 3.25 g, sodium bicarbonate 13 mEq in electrolyte-A 1,000 mL (20% mannitol used) perfusion, Once in surgery, OR use only, Starting on Sun09/19/23 at 0710, For 1 dose, Intra-Op New Bag 09/19/2023 7:16 AM SENIOR WEB DESIGNER 2,000 mL dexAMETHasone injection (DECADRON) intravenous, As needed, Starting on Sun09/19/23 at 0848, Anesthesia Intra-op Given 09/19/2023 8:48 AM SENIOR WEB DESIGNER 4 mg electrolyte-A solution (PLASMA-LYTE A) intravenous, Continuous Infusion: Per Instructions PRN, Starting on Sun09/19/23 at 0732, Anesthesia Intra-op New Bag 09/19/2023 2:36 PM SENIOR WEB DESIGNER New Bag 09/19/2023 8:17 AM SENIOR WEB DESIGNER New Bag 09/19/2023 7:32 AM SENIOR WEB DESIGNER electrolyte-A solution (PLASMA-LYTE A) intravenous, Continuous Infusion: Per Instructions PRN, Starting on Sun09/19/23 at 0806, Anesthesia Intra-op New Bag 09/19/2023 3:36 PM SENIOR WEB DESIGNER New Bag 09/19/2023 8:06 AM SENIOR WEB DESIGNER ePHEDrine (PF) injection intravenous, As needed, Starting on Sun09/19/23 at 0845, Anesthesia Intra-op Given 09/19/2023 1:03 PM SENIOR WEB DESIGNER 5 mg Given 09/19/2023 12:58 PM SENIOR WEB DESIGNER 10 mg Given 09/19/2023 8:45 AM SENIOR WEB DESIGNER 5 mg EPINEPHrine 16 mcg/mL in NaCl 0.9% mL 250 mL infusion (ADRENALIN) 0-0.3 mcg/kg/min ? 87.2 kg (0-98.1 mL/hr), intravenous, Continuous, Starting on Sun09/19/23 at 0645, In OR Protect from light and avoid extravasation, Patient Type: Cardiovascular Surgery, Initiate at: Other, Rate: Per Provider, Titrate at: Other, Titrate: Per Provider, Goal: Other, Goal: Per Provider Restarted 09/19/2023 4:45 PM SENIOR WEB DESIGNER 0.02 mcg/kg/min 6.54 mL/hr Rate/Dose Change 09/19/2023 12:51 PM SENIOR WEB DESIGNER 0.01 mcg/kg/min 3 .27 mL/hr Rate/Dose Change 09/19/2023 12:48 PM SENIOR WEB DESIGNER 0.02 mcg/kg/min 6 .54 mL/hr fentaNYL injection (SUBLIMAZE) intravenous, As needed, Starting on Sun09/19/23 at 0740, Anesthesia Intra-op Given 09/19/2023 7:54 AM SENIOR WEB DESIGNER 150 mcg Given 09/19/2023 7:46 AM SENIOR WEB DESIGNER 50 mcg Given 09/19/2023 7:40 AM SENIOR WEB DESIGNER 50 mcg granisetron (PF) injection (KYTRIL) intravenous, As needed, Starting on Sun09/19/23 at 1347, Anesthesia Intra-op Given 09/19/2023 1:47 PM SENIOR WEB DESIGNER 1 mg heparin (porcine) 1,000 unit/mL injection intravenous, As needed, Starting on Sun09/19/23 at 0917, Anesthesia Intra-op Given 09/19/2023 9:17 AM SENIOR WEB DESIGNER 34,000 Units heparin (porcine) 1,000 unit/mL injection intravenous, As needed, Starting on Sun09/19/23 at 1135, Anesthesia Intra-op Given 09/19/2023 11:35 AM SENIOR WEB DESIGNER 5,000 Units insulin regular 1 Unit/mL in [...] Factor: 0.03 Rate/Dose Change 09/20/2023 1:18 AM SENIOR WEB DESIGNER 0 Units/hr 0 mL/hr Rate/Dose Change 09/20/2023 12:02 AM SENIOR WEB DESIGNER 0 Units/hr 0 mL/h r Rate/Dose Verify 09/20/2023 12:01 AM SENIOR WEB DESIGNER 3.5 Units/hr 3.5 mL/hr ketamine injection (KETALAR) intravenous, As needed, Starting on Sun09/19/23 at 0741, Anesthesia Intra-op Given 09/19/2023 7:48 AM SENIOR WEB DESIGNER 30 mg Given 09/19/2023 7:47 AM SENIOR WEB DESIGNER 40 mg Given 09/19/2023 7:41 AM SENIOR WEB DESIGNER 10 mg lidocaine (PF) (cardiac) injection intravenous, As needed, Starting on Sun09/19/23 at 0746, Anesthesia Intra-op Given 09/19/2023 7:46 AM SENIOR WEB DESIGNER 100 mg methadone injection 26.2 mg (DOLOPHINE) 26.2 mg (rounded from 26.16 mg = 0.3 mg/kg ? 87.2 kg), intravenous, Once, On Sun09/19/23 at 0645, For 1 dose, Intra-Op, In OR, Restriction Criteria (Pharmacy will review and approve if criteria met): Prescribed by Pain Service Given 09/19/2023 8:59 AM SENIOR WEB DESIGNER 5 mg Given 09/19/2023 8:56 AM SENIOR WEB DESIGNER 5 mg Given 09/19/2023 8:54 AM SENIOR WEB DESIGNER 5 mg midazolam (PF) injection (VERSED) intravenous, As needed, Starting on Sun09/19/23 at 0738, Anesthesia Intra-op Given 09/19/2023 7:38 AM SENIOR WEB DESIGNER 2 mg mupirocin 2 % nasal ointment (BACTROBAN) nasal, As needed, Starting on Sun09/19/23 at 0821, Anesthesia Intra-op Given 09/19/2023 8:21 AM SENIOR WEB DESIGNER 0.5 g norepinephrine 16 mcg/mL in D5W 250 mL infusion 0-0.3 mcg/kg/min ? 87.2 kg (0-98.1 mL/hr), intravenous, Continuous, Starting on Sun09/19/23 at 0645, In OR Protect from light and avoid extravasation, Patient Type: Cardiovascular Surgery, Initiate at: Other, Rate: Per Provider, Titrate at: Other, Titrate: Per Provider, Goal: Other, Goal: Per Provider Rate/Dose Change 09/19/2023 4:51 PM SENIOR WEB DESIGNER 0.02 mcg/kg/min 6.54 mL/hr Restarted 09/19/2023 4:46 PM SENIOR WEB DESIGNER 0.01 mcg/kg/min 3.27 mL/ hr Rate/Dose Change 09/19/2023 3:27 PM SENIOR WEB DESIGNER 0.01 mcg/kg/min 3. 27 mL/hr phenylephrine 80 mcg/mL in NaCl 0.9% 250 mL infusion 0-1 mcg/kg/min ? 87.2 kg (0-65.4 mL/hr), intravenous, Continuous, Starting on Sun09/19/23 at 0645, Intra-Op, In OR 20 mg in 250 mL, Patient Type: Standard, initiate at: Other, Rate: Per Provider, Titrate at: Other, Titrate: Per Provider, Goal: Other, Goal: Per Provider Rate/Dose Change 09/19/2023 12:21 PM SENIOR WEB DESIGNER 0.3 mcg/kg/min 19.62 mL/hr Rate/Dose Change 09/19/2023 12:12 PM SENIOR WEB DESIGNER 0.6 mcg/kg/min 39 .24 mL/hr Rate/Dose Change 09/19/2023 12:00 PM SENIOR WEB DESIGNER 0.8 mcg/kg/min 52 .32 mL/hr phenylephrine injection intravenous, As needed, Starting on Sun09/19/23 at 0944, Anesthesia Intra-op Given 09/19/2023 12:14 PM SENIOR WEB DESIGNER 100 mc g Given 09/19/2023 10:46 AM SENIOR WEB DESIGNER 200 mcg Given 09/19/2023 10:31 AM SENIOR WEB DESIGNER 100 mcg phenylephrine injection intravenous, As needed, Starting on Sun09/19/23 at 1223, Anesthesia Intra-op Given 09/19/2023 3:10 PM SENIOR WEB DESIGNER 100 mcg Given 09/19/2023 1:50 PM SENIOR WEB DESIGNER 100 mcg Given 09/19/2023 1:27 PM SENIOR WEB DESIGNER 100 mcg propofol 10 mg/mL infusion (DIPRIVAN) intravenous, Continuous Infusion: Per Instructions PRN, Starting on Sun09/19/23 at 1243, Anesthesia Intra-op Restarted 09/19/2023 3:45 PM SENIOR WEB DESIGNER 40 mcg/kg/min 20.592 mL/hr Rate/Dose Change 09/19/2023 2:32 PM SENIOR WEB DESIGNER 40 mcg/kg/min 20.5 92 mL/hr New Bag 09/19/2023 1:43 PM SENIOR WEB DESIGNER 25 mcg/kg/min 12.87 mL/h r protamine injection intravenous, As needed, Starting on Sun09/19/23 at 1238, Anesthesia Intra-op Given 09/19/2023 12:38 PM SENIOR WEB DESIGNER 340 mg prothrombin complex conc (human) four factor infusion 1,577 Units (KCENTRA) 1,577 Units, intravenous, at 504 mL/hr, Once, On Sun09/19/23 at 1500, For 1 dose, Intra-Op, Restriction Criteria (Pharmacy will review and approve if criteria met): Urgent bleeding reversal of oral anticoagulation, excluding dabigatran New Bag 09/19/2023 3:54 PM SENIOR WEB DESIGNER 504 mL/hr rocuronium injection (ZEMURON) intravenous, As needed, Starting on Sun09/19/23 at 0748, Anesthesia Intra-op Given 09/19/2023 3:23 PM SENIOR WEB DESIGNER 30 mg Given 09/19/2023 7:48 AM SENIOR WEB DESIGNER 100 mg sugammadex injection (BRIDION) intravenous, As needed, Starting on Sun09/19/23 at 1712, Anesthesia Intra-op Given 09/19/2023 5:12 PM SENIOR WEB DESIGNER 200 mg tranexamic acid 8 mg/mL in NaCl 0.9% 250 mL infusion (CYKLOKAPRON) 1.5 mg/kg/hr ? 87.2 kg (16.35 mL/hr, rounded to 16.4 mL/hr), intravenous, Continuous, Starting on Sun09/19/23 at 0645 Restarted 09/19/2023 5:19 PM SENIOR WEB DESIGNER 2 mg/kg/hr 21.8 mL/hr Rate/Dose Change 09/19/2023 5:16 PM SENIOR WEB DESIGNER 2 mg/kg/hr 21.8 mL /hr New Bag 09/19/2023 9:26 AM SENIOR WEB DESIGNER 1.5 mg/kg/hr 16.35 mL/hr tranexamic acid 850 mg in NaCl 0.9% IVPB 850 mg (rounded from 872 mg = 10 mg/kg ? 87.2 kg), intravenous, at 176 mL/hr, Administer over 20 Minutes, Once, On Sun09/19/23 at 0645, For 1 dose New Bag 09/19/2023 9:25 AM SENIOR WEB DESIGNER 850 mg tranexamic acid pump prime 40 mg (CYKLOKAPRON) 40 mg, miscellaneous, Once, On Sun09/19/23 at 0645, For 1 dose, Intra-Op, Pump Prime (Syringe); pharmacy sent to OR Given 09/19/2023 9:44 AM SENIOR WEB DESIGNER 40 mg Transfuse autologous RBC (Cell Salvage) : Routine New Bag 09/19/2023 11:33 AM SENIOR WEB DESIGNER Transfuse autologous RBC (Cell Salvage) : Routine New Bag 09/19/2023 1:28 PM SENIOR WEB DESIGNER Transfuse Fresh Frozen Plasma : Routine New Bag 09/19/2023 1:24 PM SENIOR WEB DESIGNER Transfuse Platelets : Routine New Bag 09/19/2023 1:09 PM SENIOR WEB DESIGNER Transfuse Platelets : Routine New Bag 09/19/2023 2:15 PM SENIOR WEB DESIGNER Transfuse Platelets : Routine New Bag 09/19/2023 4:58 PM SENIOR WEB DESIGNER Transfuse Pooled Cryoprecipitate: Routine New Bag 09/19/2023 3:51 PM SENIOR WEB DESIGNER Transfuse Pooled Cryoprecipitate: Routine New Bag 09/19/2023 3:53 PM SENIOR WEB DESIGNER Transfuse Red Blood Cells : Routine New Bag 09/19/2023 10:13 AM SENIOR WEB DESIGNER Transfuse Red Blood Cells : Routine New Bag 09/19/2023 2:00 PM SENIOR WEB DESIGNER Transfuse Red Blood Cells : Routine New Bag 09/19/2023 3:50 PM SENIOR WEB DESIGNER Transfuse Red Blood Cells : Routine New Bag 09/19/2023 3:23 PM SENIOR WEB DESIGNER documented in this encounter Additional Health Concerns Assessment Noted Time PHQ-9 Depression Total Score: 1 09/10/20 23 2:06 PM CDT documented as of this encounter Care Teams Power Wheelchair Mechanic Relationship Specialty Start Date End Date Elsewhere, Pcp PCP - General Internal Medicine 08/19/23 09/27/23 documented as of this encounter
--- OUTSIDE RECORDS SUMMARY | 2023-12-07 11:29 | XMS_ITS | Encounter Summary ---
Author Name Unknown Organization [facility] Address [address] [place] [address] Care Team Providers Care Business Line Controller Name Role Phone Elsewhere, Pcp Primary Care Provider Unavailabl e Reason for Visit * Outpatient (Routine) - Closed Specialty Diagnoses / Procedures Referred By Sebas t Referred To Contact Cardiovascular Surgery Diagnoses Stenosis Aortic Valve Acquired Billy Segal APRN, C.N.P., D.N.P. [address] [place] [phone] [facility] Referral ID Status Reason Start Date Expiration Date Visits Re quested Visits Authorized [id number] Closed 08/22/2023 08/21/2024 1 1 Encounter Details Date Type Department Care Team (Latest Contact Info) Description 09/05/2023 2:30 PM CDT Comprehensive Visit Department of Cardiovascular Surgery in [place], [place] [address] [place] [phone] Sarah Miller M.D., M.P.H. [address] [place] [phone] Atrial Fibrillation Paroxysmal (HCC) (Primary [...] (Latest Contact Info) Description 12/21/2023 10:15 AM PUBLIC HEALTH WORKER Clinical Communication Virtual Review in [place], [place] 200 [place] [address] 12/24/2023 2:00 PM PUBLIC HEALTH WORKER Comprehensive Visit Department of Cardiovascular Medicine in [place], [place] [address] [place] [phone] Gudelia Soto M.D. [address] [place] [phone] 01/01/2024 3:45 PM PUBLIC HEALTH WORKER Comprehensive Visit Division of Hematology in [place], [place] [address] [place] [phone] Billy Segal APRN, C.N.P., D.N.P. [address] [place] [phone] documented as of this encounter Visit Diagnoses [...] documented as of this encounter Care Teams Business Line Controller Relationship Specialty Start Date End Date Elsewhere, Pcp PCP - General Internal Medicine 08/19/23 09/27/23 documented as of this encounter
--- OUTSIDE RECORDS SUMMARY | 2023-12-07 11:29 | XMS_ITS | Encounter Summary ---
Author Name Unknown Organization [facility] Address [address] [place] [address] Care Team Providers Care Radio Time Salesperson Name Role Phone Elsewhere, Pcp Primary Care Provider Unavailabl e Encounter Details Date Type Department Care Team (Late st Contact Info) Description 09/13/2023 Clinical Communication Department of Dental Specialties in [place], [place] [address] [place] [phone] Duc Bowling D.D.S. [address] [place] [phone] Social History Tobacco Use Types Packs/Day Years [...] (Latest Contact Info) Description 12/21/2023 10:15 AM FINISHER SCREWDOWN Clinical Communication Virtual Review in [place], [place] 200 [place] [address] 12/24/2023 2:00 PM FINISHER SCREWDOWN Comprehensive Visit Department of Cardiovascular Medicine in [place], [place] [address] [place] [phone] Gudelia Soto M.D. [address] [place] [phone] 01/01/2024 3:45 PM FINISHER SCREWDOWN Comprehensive Visit Division of Hematology in [place], [place] [address] [place] [phone] Billy Segal APRN, C.N.P., D.N.P. [address] [place] [phone] documented as of this encounter Visit Diagnoses Not on filedocumented in this encounter Additional Health Concerns Assessment Noted Time PHQ-9 Depression Total Score: 1 09/10/20 23 2:06 PM CDT documented as of this encounter Care Teams Radio Time Salesperson Relationship Specialty Start Date End Date Elsewhere, Pcp PCP - General Internal Medicine 08/19/23 09/27/23 documented as of this encounter
--- OUTSIDE RECORDS SUMMARY | 2023-12-07 11:29 | XMS_ITS | Encounter Summary ---
Author Name Unknown Organization [facility] Address [address] [place] [id number] Care Team Providers Care Receptionist Nurse Name Role Phone Elsewhere, Pcp Primary Care Provider Unavailabl e Encounter Details Date Type Department Care Team (Late st Contact Info) Description 09/05/2023 3:10 PM CDT Lab Department of Laboratory Medicine and Pathology, [facility], in [place], [place] [address] [place] [phone] Norman Roca, PIERRE, C.N.P., D.N.P. [address] [place] [phone] Stenosis Aortic Valve Acquired; Acquired Aortic Valve [...] living situation today? I [facility] a [facility] live 08/29/2023 Sex and Gender Information Value Date Recorded Sex Assigned at Male 08/29/2023 11:06 AM CDT Gender Identity Male 08/29/2023 11:06 AM CDT Sexual Orientation Straight 08/29/2023 11 :06 AM CDT documented as of this encounter Plan of Treatment Upcoming Encounters Date Type Department Care Team (Latest Contact Info) Description 12/21/2023 10:15 AM INDUSTRIAL RELATIONS COUNSELOR Clinical Communication Virtual Review in [place], [place] [address] [place] [address] 12/24/2023 2:00 PM INDUSTRIAL RELATIONS COUNSELOR Comprehensive Visit Department of Cardiovascular Medicine in [place], [place] [address] [place] [phone] Gudelia Soto M.D. [address] [place] [phone] 01/01/2024 3:45 PM INDUSTRIAL RELATIONS COUNSELOR Comprehensive Visit Division of Hematology in [place], [place] [address] [place] [phone] Billy Segal APRN, C.N.P., D.N.P. [address] [place] [phone] documented as of this encounter Procedures Procedure [...] its performance characteristics determined by [facility] in a manner consistent with CLIA requirements. This test has not been cleared or approved by the U.S. Food and Drug Administration. Blood 09/05/2023 3:22 PM CDT 09/06/2023 7:43 AM CDT Cata Mendez APRN.N.P., D.N.P. L AB BLOOD ADD-ON Performing Organization Address City/[facility] Co de Phone Number [facility] [place] [address] [place] [address], [facility] DT 200 [place] [address] * (ABNORMAL) Iron and Total Iron-Binding Capacity [...] L AB BLOOD ADD-ON Performing Organization Address [facility] Co de Phone Number [facility] [place] [address] [place] [address], [facility] [address] [place] [address] * Ferritin (09/05/2023 3:22 PM CDT) Ferritin, S 256 31 - 409 mcg/L 09/05/2023 4:04 PM CDT DTL Blood 09/05/2023 3:22 PM CDT 09/05/2023 3:41 PM CDT Cata Mendez APRN.N.P., D.N.P. L AB BLOOD ADD-ON Performing Organization Address City/[facility] Co de Phone Number [facility] [place] [address] [place] [address], [facility] DTL [facility] [address] [place] [address] * (ABNORMAL) Reticulocyte Profile (09/05/2023 3:22 PM CDT) [facility] Reticulocytes, B 1.38 0.60 - 2.71 % [...] L AB BLOOD ADD-ON Performing Organization Address City/[facility] Co de Phone Number [facility] [place] [address] [place] [address], [facility] DTL [facility] [address] [place] [address] * (ABNORMAL) Vitamin B12 Assay (09/05/2023 3:22 PM CDT) Pathologist [facility] Vitamin B12 Assay, S 123(L) 180 - [...] L AB BLOOD ADD-ON Performing Organization Address City/[facility]/ZIP Co de Phone Number [facility] [place] [address] [place] [address], [facility] [address] [place] [address] * CRP (C-Reactive Protein) (09/05/2023 3:22 PM CDT) Pathologist [facility] C-Reactive Protein (CRP), S <3.0 <5.0 mg/L 09/05/2023 4:04 PM CDT DTL Blood 09/05/2023 3:22 PM CDT 09/05/2023 3:41 PM CDT Cata Mendez APRN.N.P., D.N.P. L AB BLOOD ADD-ON Performing Organization Address [facility] Co de Phone Number [facility] [place] [address] [place] [address], [facility] [address] [place] [address] * Folate (09/05/2023 3:22 PM CDT) Pathologist [facility] Folate, S 14.5 >=4.0 mcg/L 09/06/2023 7: 42 AM CDT DTL Blood 09/05/2023 3:22 PM CDT 09/05/2023 3:41 PM CDT Cata Mendez APRN.N.P., D.N.P. L AB BLOOD ADD-ON Performing Organization Address City/[facility]/ZIP Co de Phone Number [facility] [place] [address] [place], [place] [address] DTL [facility] [address] [place] [address] * (ABNORMAL) CBC-Preop with reflex anemia panel [...] (Blood, Venous) 09/05/2023 3:22 PM CDT Narrative [facility] [place] - 09/05/2023 3:39 PM CDT Specimen Information: Specimen ID: [id number] Specimen Type: Blood Specimen Collection Start Date: 09/05/2023 ??3:22 PM Specimen ID: [id number] Specimen Type: Blood Specimen Collection Start Date: 09/05/2023 ??3:22 PM Specimen Received Date: 09/05/2023 ??3:32 PM Specimen ID: [id number] Specimen Type: Blood Specimen Collection Start Date: 09/05/2023 ??3:22 PM Norman Roca APRN, C.N.P., D.N.P. L AB BLOOD ADD-ON [facility] [address] [place] [address], [facility] DTL [facility] [address] [place] [address] documented in this encounter Visit Diagnoses Diagnosis Stenosis Aortic Valve Acquired Acquired Aortic Valve Disorder documented in this encounter Additional Health Concerns Assessment Noted Time PHQ-9 Depression Total Score: 0 08/20/20 23 12:00 PM CDT documented as of this encounter Care Teams Receptionist Nurse Relationship Specialty Start Date End Date Elsewhere, Pcp PCP - General Internal Medicine 08/19/23 09/27/23 documented as of this encounter
--- OUTSIDE RECORDS SUMMARY | 2023-12-07 11:30 | XMS_ITS | Encounter Summary ---
Author Name Unknown Organization [facility] Address [address] [place] [id number] Care Team Providers Care Frame Builder Name Role Phone Elsewhere, Pcp Primary Care Provider Unavailabl e Reason for Visit * Reason Comments Chest Pain * Auth/Cert (Routine) Specialty Diagnoses / Procedures Referred By Contac t Referred To Contact Diagnoses Stenosis Mitral And Aortic Stenosis Pain Chest Procedures ER Referral ID Status Reason Start Date Expiration Date Visits Re quested Visits Authorized [id number] 1 1 Encounter Details Date Type Department Care Team (Late st Contact Info) Description 08/19/2023 3:15 PM CDT - 08/22/2023 11:57 AM CDT Hospital Encounter [facility], [facility], [facility], Sixth Floor [address] [place] [address] [phone] Norman Mcdonough D.O. [address] [place] [phone] Khushbu Bliss M.D. [address] [place] [phone] Jennie Enriquez M.D. [address] [place] [phone] Pain Chest (Primary Dx); Stenosis Mitral And [...] - 1 event recorded on loop recorder ([id number]), lasting 8 minutes on 11/25/20 #7 Hypertension [...] 4:00 PM Sarah Miller M.D., M.P.H.; 01 [facility] Cardiovascular Surgery 09/19/2023 4:30 PM 01 [id number] Cardiovascular Surgery For appointment details refer to your Patient Appointment Guide. HOSPITAL COURSE Admission Weight: 86.5 kg Dismissal Weight: 82.6 kg BMI: Body mass index is 27.6 kg/m??. Mr. Harris is a 73-year-old gentleman who presented to [place] emergency department with shortness of breath with [...] symptoms. This prompted him to present to [place] emergency department. Of note, he was seen by his local provider on 08/08/23, his Lisinopril dose was decreased to 2.5 mg daily at that time due to hypotension and was referred to [facility] for an echocardiogram to monitor his [...] dose Aspirin. He was admitted to the [facility] Cardiology 4 service for further monitoring [...] of Atrial Fibrillation during the period of 5227-2388, on 11/25/20 that lasted for 8 minutes. [...] Status Erythropoietin (EPO) In process Pernicious Anemia [place] In process DISCHARGE DISPOSITION: Home or Self [...] through Care Everywhere. * Pantoprazole (By mouth) (Kittitian) * Acetaminophen (By mouth) (Kittitian) documented in this encounter Medications at Time [...] history of AFIB discovered on loop recorder 9428-5531. Continue monitor. Reduced aspirin from 325 mg [...] 81 mg this hospitalization S/p loop recorder, [id number]. Per chart showed 1-4 events of AF. [...] - 1 event recorded on loop recorder ([id number]), lasting 8 minutes on 11/25/20 #6 Hypertension #7 Hyperlipidemia #8 Type 2 diabetes mellitus, most recent A1C 6.3 (05/01/23) #9 BPH #10 Iron deficiency anemia #11 Hypomagnesemia - repleted #12 GERD Mr. Hraris is a 73 y.o. male who was admitted to [facility] Cardiology 4 service for shortness of [...] Fibrillation lasting 8 minutes on 11/25/20 from 1145-4821. He was on high dose Aspirin. Given [...] - 1 event recorded on loop recorder ([id number]), lasting 8 minutes on 11/25/20 #5 Hypertension #6 Hyperlipidemia #7 Type 2 diabetes mellitus, most recent A1C 6.3 (05/01/23) #8 BPH #9 Iron deficiency anemia #10 Hypomagnesemia Mr. Harris is a 73 y.o. male who was admitted to [facility] Cardiology 4 service for shortness of [...] hour. This prompted him to present to [place] emergency department. He stated that the pain was not radiating and did not have other associated symptoms. Of note, he was seen by his local provider on 08/08/23, his Lisinopril dose was decreased to 2.5 mg daily due to hypotension and was referred to [facility] for an echocardiogram to monitor his [...] dose Aspirin. He was admitted to the [facility] Cardiology 4 service for further monitoring [...] lasting for 8 minutes on 11/25/20 from 4191-9981. He remains on high dose Aspirin. PLAN: [...] of breath HISTORY OF PRESENT ILLNESS Jong Hraris is a 73 y.o. male who presents [...] does not have a prior history of UT but did have a stroke in 2019. [...] On full dose aspirin S/p loop recorder, [id number]. Per chart showed 1-4 events of AF. [...] 08/19/2023 8:26 PM CDT SUBJECTIVE REFERRAL SOURCE [facility] Emergency Room, [facility], [place], [place] CHIEF COMPLAINT/REASON FOR VISIT Episodes of [...] trouble viewing the loop recorder reports in [facility] everywhere. Patient presented to the emergency room [...] area of 1.43 cm^2 (report available in [facility] everywhere). LVEF was approximately 70%. Electrocardiogram revealed [...] per review of labo ratory results in [facility] Everywhere. Chest x-ray revealed no focal pulmonary [...] area of 1.43 cm^2 (report available in [facility] everywhere). As of August 17, 2023 echocardiogram [...] reviewing the complete loop recorder reports from [facility] everywhere-we will continue to follow up and [...] is a 73 y.o. male admitted to [facility] 4 service on 08/19/2023 from the [...] Cardiovascular Surgery was consulted to see by [facility] 4 for evaluation and treatment of [...] Rate (GFR) 30 To 44 ([facility]) #4 Hyperlipidemia On Treatment #5 Benign Prostatic Hyperplasia Without Obstruction #6 Atrial Fibrillation Paroxysmal ([facility]) #7 Diabetes Mellitus Type 2 ([facility]) #8 Stroke ([facility]) #9 Anemia Iron Deficiency #10 Basal Cell Carcinoma Skin Other Parts Face #11 Squamous Cell Carcinoma Skin Other Parts Face Mr. Harris is a 73 y.o. male admitted to [place] [address] for evaluation and management of chest pain and dyspnea in the setting of known severe aortic stenosis. [facility] was consulted for consideration for surgical aortic valve replacement. Patient will need his coronary arteries evaluated for CAD. This consult will be staffed by Dr. Miller. Please call the [facility] stationary steam engineer pager [phone] with any questions. documented in this encounter Nursing Notes * Kleber Sharma RMihir. - 08/22/2023 10:53 AM CDT Shift Goals: Clinical Goals for the Shift: Patient will remain NPO overnight. Identify possible barriers to meeting goals/advancing plan of care: None End of Shift Summary: Patient was discharge to [facility] with his . All VSS at time [...] Echo was done here at [facility] last Sunday but he has nofollow-up appointments. They recently moved to [place]. They have been getting care in [place]. We have no medical records for comparison. [...] Aortic Stenosis Mare Noble M.D. Resident 08/19/23 1532 * Rowena Oro R.N. - 08/19/2023 3:22 [...] is a 73-year-old gentleman who presented to [place] emergency department with shortness of breath with [...] symptoms. This prompted him to present to [place] emergency department. Of note, he was seen by his local provider on 08/08/23, his Lisinopril dose was decreased to 2.5 mg daily at that time due to hypotension and was referred to [facility] for an echocardiogram to monitor his [...] dose Aspirin. He was admitted to the [facility] Cardiology 4 service for further monitoring [...] of Atrial Fibrillation during the period of 2714-2168, on 11/25/20 that lasted for 8 minutes. [...] (Latest Contact Info) Description 12/21/2023 10:15 AM FLOOR SURFACER Clinical Communication Virtual Review in [address] [address] 12/24/2023 2:00 PM FLOOR SURFACER Comprehensive Visit Department of Cardiovascular Medicine in [address] [phone] Gudelia Soto M.D. [address] [place] [phone] 01/01/2024 3:45 PM FLOOR SURFACER Comprehensive Visit Division of Hematology in [address] [phone] Billy Segal APRN, C.N.P., D.N.P. [address] [place] [phone] documented as of this encounter Procedures Procedure [...] Glucose, POCT (08/22/2023 6:47 AM CDT) Pathologist [facility] Glucose, POCT, B 127 70 - 140 mg/dL 08/22/2023 6:50 AM CDT PCLX Site Capillary 08/22/2023 6:50 AM CDT PCLX Blood 08/22/2023 6:47 AM CDT 08/22/2023 6:50 AM CDT Unknown Provider LAB POCT ORDERABLES- MANUAL POC [facility] [address] [place] [address], [facility] P[facility] POC [address] [place] [address] * Gastrin (08/22/2023 5:14 AM CDT) Pathologist [facility] Gastrin, S 21 pg/mL 08/22/2023 6:26 PM CDT [facility] Comment: Not consistent with pernicious anemia. ----REFERENCE VALUE---- <100 Reference ranges valid for >= 8 hour fast. Blood 08/22/2023 5:14 AM CDT 08/22/2023 3:36 PM CDT Radha Richards APRNN.Michaela, D.N.P. LAB BLOOD NON ADD-ON Performing Organization Address [facility] de Phone Number [facility] [address] [place] [address] [facility] [address] [place] [address] * Intrinsic Factor Blocking Antibody, Serum (08/22/2023 5:14 AM CDT) [facility] Intrinsic Factor Blocking Ab, S Negative Negative 08/22/2023 1:13 PM CDT [facility] Comment:Gastrin test was per formed. Comment SEE COMMENT 08/22/2023 1:13 PM CDT [facility] Comment: Intrinsic Factor Blocking Antibody (IFBA) antibodies are absent in approximately 50% of individuals with pernicious anemia (PA). The absence of elevated IFBA antibodies does not rule out the presence of PA; further studies such as gastrin testing may be indicated. Blood 08/22/2023 5:14 AM CDT 08/22/2023 10:03 AM CDT Radha Richards APRNNJarrettPJarrett, D.N.P. LAB BLOOD NON ADD-ON Performing Organization Address [facility] de Phone Number [facility] [address] [place] [address] [facility] [address] [place] [address] * (ABNORMAL) Comprehensive Metabolic Panel (08/22/2023 5:14 AM CDT) [facility] Potassium, S 4.7 3.6 - 5.2 mmol/L [...] Segal APRN, C.N.P., D.N.P. LAB BLOOD ADD-ON [facility] [address] 200 [place] [address] * Ferritin (08/22/2023 5:14 AM CDT) Pathologist [facility] Ferritin, S 243 31 - 409 mcg/L 08/22/2023 6:31 AM CDT DTL Blood (Blood, Venous) 08/22/2023 5:14 AM CDT 08/22/2023 6:06 AM CDT Billy Segal APRN C.N.P., D.N.P. LAB BLOOD ADD-ON [facility] 200 [place] [address] * (ABNORMAL) Iron and Total Iron-Binding Capacity (08/22/2023 5:14 AM CDT) [facility] Iron 72 50 - 150 mcg/dL 08/22/2023 6:31 AM CDT DTL Total Iron Binding Capacity 203(L) 250 - 400 mcg/dL 08/22/2023 6:31 AM CDT DTL Percent Saturation 35 14 - 50 % 08/22/2023 6:31 AM CDT DTL Blood (Blood, Venous) 08/22/2023 5:14 AM CDT 08/22/2023 6:06 AM CDT Billy Segal APRN C.N.P., D.N.P. LAB BLOOD ADD-ON [facility] 200 [place] [address] * (ABNORMAL) Pernicious Anemia [place] (08/22/2023 5:14 AM CDT) Pathologist [facility] Vitamin B12 Assay, S 123(L) 180 - 914 ng/L 08/22/2023 12:19 PM CDT [facility] Comment: Low B12; Intrinsic Factor Blocking Antibody test was performed. Blood (Blood, Venous) 08/22/2023 5:14 AM CDT 08/22/2023 10:03 AM CDT Billy Segal APRN, C.N.P., D.N.P. LAB BLOOD NON ADD-ON Performing Organization Address City/[facility]/ZIP Co de Phone Number [facility] [address] [place] [address] [facility] [address] [place] [address] * (ABNORMAL) Magnesium (08/22/2023 5:14 AM CDT) Pathologist [facility] Magnesium, S 2.4(H) 1.7 - 2.3 mg/dL 08/22/2023 6:31 AM CDT DTL Blood (Blood, Venous) 08/22/2023 5:14 AM CDT 08/22/2023 6:06 AM CDT Radha Richards APRNNKory, D.N.P. LAB BLOOD ADD-ON Performing Organization Address [facility] Co de Phone Number [facility] 200 [place] [address], [facility] 200 [place] [address] * (ABNORMAL) CBC with Differential, Blood (08/22/2023 [...] Segal APRN, C.N.P., D.N.P. LAB BLOOD ADD-ON [facility] [address] [place] [address], [facility] DTL [facility] [address] [place] [address] [facility] [address] [place] [address] * (ABNORMAL) Hemoglobin A1c (08/22/2023 5:14 AM CDT) Pathologist [facility] Hemoglobin A1c, B 6.2(H) 4.0 - 5.6 % 08/22/2023 7:37 AM CDT DTL Comment: Hemoglobin A1c values of 5.7-6.4 percent indicate an increased risk for developing diabetes mellitus. In diabetic patients, HbA1c goals should be discussed with healthcare provider. Blood (Blood, Venous) 08/22/2023 5:14 AM CDT 08/22/2023 5:49 AM CDT Radha Richards APRNNGrant., D.N.P. LAB BLOOD ADD-ON Performing Organization Address City/[facility]/ZIP Co de Phone Number [facility] [address] [place] [address], [facility] [address] [place] [address] * Erythropoietin (EPO) (08/22/2023 5:08 AM CDT) [facility] Erythropoietin (EPO), S 7.5 2.6 - 18.5 mIU/mL 08/22/2023 12:01 PM CDT [facility] Blood (Blood, Venous) 08/22/2023 5:08 AM CDT 08/22/2023 10:39 AM CDT Radha Richards APRNNJarrettP., D.N.P. LAB BLOOD ADD-ON Performing Organization Address City/[facility] Co de Phone Number [facility] [address] [place] [address] [facility] [address] [place] [address] * (ABNORMAL) Glucose, POCT (08/21/2023 9:19 PM CDT) Glucose, POCT, B 154(H) 70 - 140 mg/dL 08/21/2023 9:31 PM CDT PCLX Site Capillary 08/21/2023 9:31 PM CDT PCLX Last Intake 3-4 hours 08/21/2023 9:31 PM CDT PCLX Blood 08/21/2023 9:19 PM CDT 08/21/2023 9:31 PM CDT Unknown Provider LAB POCT ORDERABLES- MANUAL Performing Organization Address City/[facility]/ZIP Co de Phone Number POC [facility] [address] [place] [address], [facility] POC 200 [place] [address] * (ABNORMAL) Glucose, POCT (08/21/2023 5:19 PM CDT) Glucose, POCT, B 177(H) 70 - 140 mg/dL 08/21/2023 5:21 PM CDT PCLX Site Capillary 08/21/2023 5:21 PM CDT PCLX Last Intake 3-4 hours 08/21/2023 5:21 PM CDT PCLX Blood 08/21/2023 5:19 PM CDT 08/21/2023 5:21 PM CDT Unknown Provider LAB POCT ORDERABLES- MANUAL Performing Organization Address City/[facility]/ZIP Co de Phone Number POC [facility] [address] [place] [address], [facility] POC 200 [place] [address] * CORONARY ANGIOGRAPHY (08/21/2023 3:16 PM CDT) [...] LAB POCT ORDERABLES- MANUAL Performing Organization Address City/[facility]/ZIP Co de Phone Number POC [facility] [address] [place] [address], [facility] POC [address] [place] [address] * Glucose, POCT (08/21/2023 6:56 AM CDT) Glucose, POCT, B 127 70 - 140 mg/dL 08/21/2023 7:06 AM CDT PCLX Site Capillary 08/21/2023 7:06 AM CDT PCLX Blood 08/21/2023 6:56 AM CDT 08/21/2023 7:06 AM CDT Unknown Provider LAB POCT ORDERABLES- MANUAL Performing Organization Address City/[facility]/ZIP Co de Phone Number [facility] [address] [place] [address], [facility] POC [address] [place] [address] * Lipid Panel (08/21/2023 4:52 AM CDT) [...] Segal APRN, C.N.P., D.N.P. LAB BLOOD ADD-ON [facility] - [facility] [address] [place] [address], [facility] [address] [place] [address] * (ABNORMAL) Basic Metabolic Panel (08/21/2023 4:52 AM CDT) Pathologist [facility] Potassium, S 4.9 3.6 - 5.2 mmol/L [...] Segal APRN, C.N.P., D.N.P. LAB BLOOD ADD-ON [facility] [address] [place] [address], [facility] [address] [place] [address] * (ABNORMAL) Cystatin C with Estimated GFR [...] D.N.P. LAB BLOOD ADD-ON Performing Organization Address City/[facility]/ZIP Co de Phone Number [facility] 200 [place] [address], [facility] DTL [facility] [address] [place] [address] * Glucose, POCT (08/20/2023 9:17 PM CDT) [facility] Glucose, POCT, B 130 70 - 140 mg/dL 08/20/2023 9:19 PM CDT PCLX Site Capillary 08/20/2023 9:19 PM CDT PCLX Last Intake 3-4 hours 08/20/2023 9:19 PM CDT PCLX Blood 08/20/2023 9:17 PM CDT 08/20/2023 9:19 PM CDT Unknown Provider LAB POCT ORDERABLES- MANUAL Performing Organization Address City/[facility]/ZIP Co de Phone Number POC [facility] [address] [place] [address], [facility] POC [address] [place] [address] * DX [employer] Teeth (08/20/2023 6:23 PM [...] * Glucose, POCT (08/20/2023 4:53 PM CDT) [facility] Glucose, POCT, B 105 70 - 140 mg/dL 08/20/2023 4:55 PM CDT PCLX Site Capillary 08/20/2023 4:55 PM CDT PCLX Last Intake 3-4 hours 08/20/2023 4:55 PM CDT PCLX Blood 08/20/2023 4:53 PM CDT 08/20/2023 4:55 PM CDT Unknown Provider LAB POCT ORDERABLES- MANUAL POC [facility] [address] [place] [address], [facility] POC [address] [place] [address] * Dipstick, Urine (08/20/2023 3:26 PM CDT) [...] D.N.P. LAB URINE ORDERABLES Performing Organization Address City/[facility]/ZIP Co de Phone Number [facility] 200 [place] [address] * pH, Urine (08/20/2023 3:26 PM CDT) pH, U 6.9 4.5 - 8.0 08/20/2023 4:2 4 PM CDT DTL Urine 08/20/2023 3:26 PM CDT 08/20/2023 3:43 PM CDT Cata Richards APRN.N.P., D.N.P. LAB URINE ORDERABLES [facility] 200 [place] [address] * Osmolality, Urine (08/20/2023 3:26 PM CDT) Osmolality, U 239 150 - 1150 mOsm/kg 08/20/2023 4:24 PM CDT DTL Urine 08/20/2023 3:26 PM CDT 08/20/2023 3:43 PM CDT Cata Richards APRN.N.P., D.N.P. LAB URINE ORDERABLES Performing Organization Address City/[facility] Co de Phone Number [facility] 200 [place] [address], [facility] 200 [place] [address] * Microscopic Automated (08/20/2023 3:26 PM CDT) Microscopy Normal 08/20/2023 3:5 3 PM CDT DTL Urine 08/20/2023 3:26 PM CDT 08/20/2023 3:43 PM CDT Radha Richards APRNN.PJarrett, D.N.P. LAB URINE ORDERABLES Performing Organization Address [facility] Co de Phone Number [facility] [address] [place] [address], [facility] [address] [place] [address] * Urinalysis with Microscopic: Urine, Midstream (08/20/2023 [...] PetraNJarrettP. LAB URINE ORDERABLES Performing Organization Address [facility] Co de Phone Number [facility] [address] [place], [place] [address] [place] [address] [facility] 200 [place] [address] * (ABNORMAL) Glucose, POCT (08/20/2023 11:55 AM CDT) Glucose, POCT, B 281(H) 70 - 140 mg/dL 08/20/2023 12:06 PM CDT PCLX Blood 08/20/2023 11:5 5 AM CDT 08/20/2023 12:06 PM CDT Unknown Provider LAB POCT ORDERABLES- MANUAL Performing Organization Address [facility] Co de Phone Number POC [facility] [address] [place] [address], [facility] POC [address] [place] [address] * Magnesium (08/20/2023 7:01 AM CDT) Magnesium, S 1.9 1.7 - 2.3 mg/dL 08/20/2023 8:09 AM CDT DTL Blood (Blood, Venous) 08/20/2023 7:01 AM CDT 08/20/2023 7:48 AM CDT Palomo Flores P.A.-C. LAB BLOOD ADD -ON Performing Organization Address City/[facility]/ZIP Co de Phone Number [facility] [address] [place] [address], [facility] 200 [place] [address] * (ABNORMAL) Basic Metabolic Panel (08/20/2023 7:01 [...] Palomo Flores P.A.-C. LAB BLOOD ADD -ON [facility] 200 [place] [address], [facility] 200 [place] [address] * (ABNORMAL) Cystatin C with Estimated GFR [...] Cata Richards APRN.N.P., D.N.P. LAB BLOOD ADD-ON [facility] 200 [place] [address], [facility] [address] [place] [address] * Glucose, POCT (08/20/2023 6:58 AM CDT) Pathologist [facility] Glucose, POCT, B 107 70 - 140 mg/dL 08/20/2023 7:01 AM CDT PCLX Site Capillary 08/20/2023 7:01 AM CDT PCLX Blood 08/20/2023 6:58 AM CDT 08/20/2023 7:01 AM CDT Unknown Provider LAB POCT ORDERABLES- MANUAL POC [facility] [address] [place] [address], [facility] [address] [place] [address] * (ABNORMAL) Troponin T, 2h/6h, 5th Gen (08/19/2023 6:00 PM CDT) Pathologist [facility] Troponin T, 2 hr, 5th gen 18(H) [...] PM CDT 08/19/2023 6:05 PM CDT Narrative [facility] - 08/19/2023 6:25 PM CDT Specimen Information: Specimen ID: [id number] Specimen Type: Blood Specimen Collection Start Date: 08/19/2023 ??6:00 PM Specimen Received Date: 08/19/2023 ??6:05 PM Specimen ID: [id number] Specimen Type: Blood Norman Mcdonough D.O. LAB BLOOD TROPO KATHI Performing Organization Address City/[facility]/[place] [address] * (ABNORMAL) Troponin T, Baseline, 5th gen (08/19/2023 3:49 PM CDT) Troponin T, Baseline, 5th gen 18(H) <=15 ng/L 08/19/2023 4:16 PM CDT [facility] Blood (Blood, Venous) 08/19/2023 3:49 PM CDT 08/19/2023 3:56 PM CDT Norman Mcdonough D.O. LAB BLOOD TROPO KATHI Performing Organization Address City/[facility]/ZIP Co de Phone Number [facility] 200 [place] [id number] * (ABNORMAL) CBC with Differential, Blood (08/19/2023 [...] Norman Mcdonough D.O. LAB BLOOD ADD-O N [facility] [address] [place], [place] [phone] [place] [address] [facility] [address] [place] [address] [facility] 200 [place] [address] * (ABNORMAL) Basic Metabolic Panel (08/19/2023 3:49 [...] Norman Mcdonough D.O. LAB BLOOD ADD-O N [facility] [address] [place] [address], [facility] ST[facility] [address] [place] [address] * DX Chest AP or PA and [...] CDT) Ventricular Rate ECG/Min 89 BPM MUSE OR Interval 130 ms MUSE QRSD Interval 78 ms MUSE QT Interval 358 ms MUSE QTC Interval 435 ms MUSE P [place] 40 degrees MUSE R [place] 36 degrees MUSE T Wave [place] 81 degrees MUSE 08/19/2023 3:24 PM CDT [...] intravenous, As needed, line care, Starting on [place] 08/19/23 at 2154, Peripheral Intravenous Catheter and Rapid Infusion Catheter, prior to blood sampling, post blood transfusion or post blood sampling sodium chloride 0.9 % injection 3 mL 3 mL, intravenous, As needed, line care, Starting on [place] 08/19/23 at 1520, Prior to and following [...] intravenous, As needed, line care, Starting on [place] 08/19/23 at 2154, Prior to and following [...] dose, Preprocedure (CV) 1414 (Given - Provider: Quni Toro R.N.) aspirin chewable tablet 81 mg 81 mg, oral, Daily, First dose on Sun08/21/23 at 0900 0802 (Given - Provider: Kleber Sharma RSammi)1404 (JAN Hold - Provider: Transfer Provider, Automatic - Reason: Patient not available)1604 ([facility] Unhold - Provider: Transfer Provider, Automatic) 0806 (Given - Provider: Kleber Sharma RMihir.) aspirin tablet 325 mg (CANCELED) 325 mg, oral, Daily, First dose on Sun08/20/23 at 0900 0936 (Given - Provider: Kassie Ahumada M.S., M.A., R.N., [facility] atorvastatin tablet 40 mg (LIPITOR) (CANCELED) 40 [...] Kassie Ahumada M.S., M.A., R.N., [facility]) 0802 (Given - Provider: Kleber Sharma R.N.)1404 (JAN Hold - Provider: Transfer Provider, Automatic - Reason: Patient not available)1604 ([facility] Unhold - Provider: Transfer Provider, Automatic) 0806 (Given - Provider: Kleber Sharma R.N.) ferrous sulfate tablet 65 mg of iron 65 mg of iron, oral, Daily, First dose on Sun08/20/23 at 0900 0936 (Given - Provider: Kassie Ahumada M.S., M.Keri., R.N., [facility]) 0802 (Given - Provider: Kleber Sharma R.N.)1404 ([facility] Hold - Provider: Transfer Provider, Automatic - Reason: Patient not available)1604 ([facility] Unhold - Provider: Transfer Provider, Automatic) 0806 (Given - Provider: Kleber Sharma R.N.) finasteride tablet 5 mg (PROSCAR) 5 mg, oral, Daily, First dose on Sun08/20/23 at 0900, See tube feeding guidelines for tube feeding administration instructions. 0936 (Given - Provider: Kassie Ahumada M.S., M.Keri., R.N., [facility]) 0802 (Given - Provider: Kleber Sharma R.N.)1404 ([facility] Hold - Provider: Transfer Provider, Automatic - Reason: Patient not available)1604 ([facility] Unhold - Provider: Transfer Provider, Automatic) 0806 (Given - Provider: Kleber Sharma R.N.) heparin (porcine) injection 5,000 Units 5,000 Units, subcutaneous, 3 times daily, First dose on Sun08/20/23 at 2000 2046 (Given - Provider: Pamela Jason R.N.) 0802 (Given - Provider: Kleber Sharma R.N.)1404 (JAN Hold - Provider: Transfer Provider, Automatic - Reason: Patient not available)1604 ([facility] Unhold - Provider: Transfer Provider, Automatic)1617 (Given [...] Kassie Ahumada M.S., M.A., R.N., [facility] - Reason: Order parameters not met)1250 (Not [...] - Provider: Kassie Ahumada M.S., M.A., R.N., [facility]) pantoprazole DR tablet 40 mg (PROTONIX) 40 [...] Kassie Ahumada M.S., M.A., R.N., [facility])1610 (Given - Provider: Yasmine Caba R.N.)2045 (Given - Provider: Pamela Jason R.N.) 0802 (Given - Provider: Kleber Sharma R.N.)1404 ([facility] Hold - Provider: Transfer Provider, Automatic - Reason: Patient not available)160 ([facility] Unhold - Provider: Transfer Provider, Automatic)1617 (Given [...] Kassie Ahumada M.S., M.A., R.N., [facility])2052 (Not Given - Provider: Pamela Jason R.N. - Reason: Other - Comment: Duplicate order) 0918 (Not Given - Provider: Kleber Sharma R.N. - Reason: Order parameters not met)1404 ([facility] Hold - Provider: Transfer Provider, Automatic - Reason: Patient not available)160 ([facility] Unhold - Provider: Transfer Provider, Automatic)2125 (Given - Provider: Reggie Robertson R.N.) 0955 (Given - Provider: Kleber Sharma R.N.) sodium chloride 0.9 % injection 3 mL 3 mL, intravenous, Every 12 hours scheduled, First dose on Sun08/20/23 at 0900, Peripheral Intravenous Catheter and Rapid Infusion Catheter, when no infusion to maintain patency 1103 (Given - Provider: Kassie Ahumada M.S., M.A., R.N., [facility])205 (Given - Provider: Pamela Jason R.N.) 0917 (Given - Provider: Kleber Sharma R.N.)1404 ([facility] Hold - Provider: Transfer Provider, Automatic - Reason: Patient not available)1604 ([facility] Unhold - Provider: Transfer Provider, Automatic)2126 (Given - Provider: Reggie Robertson RJarrettNJarrett) 0955 (Given - Provider: Kleber Sharma R.N.) tamsulosin 24 hr capsule 0.4 mg (FLOMAX) 0.4 mg, oral, Daily, First dose on 08/20/23 at 0900, Swallow whole. Do NOT crush, chew or open capsule. 0936 (Given - Provider: Kassie Ahumada M.S., M.A., R.N., [facility]) 0802 (Given - Provider: Kleber Sharma R.N.)1404 ([facility] Hold - Provider: Transfer Provider, Automatic - Reason: Patient not available)1604 ([facility] Unhold - Provider: Transfer Provider, Automatic) 0806 (Given - Provider: Kleber Sharma R.N.) PRN Medication Order 08/20/2023 08/21/2023 08/22/2023 acetaminophen tablet 500 mg (TYLENOL) 500 mg, oral, Every 6 hours PRN, mild pain or score 1-3 of 10, fever, Notify service prior to first administration for fever, Starting on 08/19/23 at 2157 1404 ([facility] Hold - Provider: Transfer Provider, Automatic - Reason: Patient not available)1604 ([facility] Unhold - Provider: Transfer Provider, Automatic) bisacodyL DR tablet 10 mg (DULCOLAX) 10 mg, oral, Daily PRN, constipation, Starting on 08/19/23 at 2157, PO route preferred. Constipation unrelieved by docusate sodium (COLACE) if ordered. If results needed within 2 hours give rectal suppository if ordered. Swallow whole. Do NOT crush, chew, or split tablet. 1404 ([facility] Hold - Provider: Transfer Provider, Automatic - Reason: Patient not available)1604 ([facility] Unhold - Provider: Transfer Provider, Automatic) bisacodyL suppository 10 mg (DULCOLAX) 10 mg, rectal, Daily PRN, constipation, Starting on 08/19/23 at 2157, PO route preferred. Constipation unrelieved by docusate sodium (COLACE) if ordered. If results needed within 2 hours - give rectal suppository. 1404 ([facility] Hold - Provider: Transfer Provider, Automatic - Reason: Patient not available)1604 ([facility] Unhold - Provider: Transfer Provider, Automatic) calcium carbonate chewable tablet 400 mg of calcium (TUMS) 400 mg of calcium, oral, Every 2 hour PRN, indigestion, Not to exceed 12 tablets in 24 hours, Starting on Sun08/19/23 at 2157, Doses listed are in mg of elemental calcium. Take with food. 500 mg calcium carbonate contains 200 mg of elemental calcium. 1404 ([facility] Hold - Provider: Transfer Provider, Automatic - Reason: Patient not available)1604 ([facility] Unhold - Provider: Transfer Provider, Automatic) fentaNYL [...] blood transfusion or post blood sampling 1404 ([facility] Hold - Provider: Transfer Provider, Automatic - Reason: Patient not available)1604 ([facility] Unhold - Provider: Transfer Provider, Automatic) sodium chloride 0.9 % injection 10 mL 10 mL, intravenous, As needed, line care, Starting on 08/19/23 at 2154, Peripheral Intravenous Catheter and Rapid Infusion Catheter, prior to blood sampling, post blood transfusion or post blood sampling 1404 ([facility] Hold - Provider: Transfer Provider, Automatic - Reason: Patient not available)1604 ([facility] Unhold - Provider: Transfer Provider, Automatic) sodium chloride 0.9 % injection 3 mL 3 mL, intravenous, As needed, line care, Starting on 08/19/23 at 1520, Prior to and following infusion and between multiple consecutive infusions: sodium chloride 0.9 % injection 1404 ([facility] Hold - Provider: Transfer Provider, Automatic - Reason: Patient not available)1604 ([facility] Unhold - Provider: Transfer Provider, Automatic) sodium chloride 0.9 % injection 3 mL 3 mL, intravenous, As needed, line care, Starting on 08/19/23 at 2154, Prior to and following infusion and between multiple consecutive infusions: sodium chloride 0.9 % injection 1404 ([facility] Hold - Provider: Transfer Provider, Automatic - Reason: Patient not available)1604 ([facility] Unhold - Provider: Transfer Provider, Automatic) documented in this encounter Additional Health Concerns Assessment Noted Time PHQ-9 Depression Total Score: 0 08/20/20 23 12:00 PM CDT documented as of this encounter Care Teams Frame Builder Relationship Specialty Start Date End Date Elsewhere, Pcp PCP - General Internal Medicine 08/19/23 09/27/23 documented as of this encounter
--- OUTSIDE RECORDS SUMMARY | 2023-12-07 11:30 | XMS_ITS | Encounter Summary ---
Author Name Unknown Organization [facility] Address [address] [place] [address] Care Team Providers Care Supervisor Fabrication And Assembly Name Role Phone Elsewhere, Pcp Primary Care Provider Unavailabl e Encounter Details Date Type Department Care Team ([facility] st Contact Info) Description 08/22/2023 Orders Only Department of Cardiovascular Medicine in [place], [place] [address] [place] [phone] Billy Segal APRN, C.N.P., D.N.P. [address] [place] [phone] Social History Tobacco Use Types Packs/Day Years [...] (Latest Contact Info) Description 12/21/2023 10:15 AM CUSTOMER ADVOCATE Clinical Communication Virtual Review in [place], [place] [address] [place] [address] 12/24/2023 2:00 PM CUSTOMER ADVOCATE Comprehensive Visit Department of Cardiovascular Medicine in [place], [place] [address] [place] [phone] Gudelia Soto M.D. [address] [place] [phone] 01/01/2024 3:45 PM CUSTOMER ADVOCATE Comprehensive Visit Division of Hematology in [place], [place] [address] [place] [phone] Billy Segal APRN, C.N.P., D.N.P. [address] [place] [phone] documented as of this encounter Visit Diagnoses Not on filedocumented in this encounter Additional Health Concerns Assessment Noted Time PHQ-9 Depression Total Score: 0 08/20/20 23 12:00 PM CDT documented as of this encounter Care Teams Supervisor Fabrication And Assembly Relationship Specialty Start Date End Date Elsewhere, Pcp PCP - General Internal Medicine 08/19/23 09/27/23 documented as of this encounter
--- OUTSIDE RECORDS SUMMARY | 2023-12-07 11:30 | XMS_ITS | Encounter Summary ---
Author Name Unknown Organization [facility] Address [address] [place] [address] Care Team Providers Care Technical Support Specialist Name Role Phone Elsewhere, Pcp Primary Care Provider Unavailabl e Reason for Referral * MRI/CAT/PET Scan (Routine) - Closed Specialty Diagnoses / Procedures Referred By Sebas gimenez Referred To Contact Radiology Diagnoses Stenosis Aortic Valve Acquired Procedures CT Chest Angiogram with IV Contrast Billy Segal APRN, C.N.PJarrett, D.N.P. [address] [place] [phone] [facility] Referral ID Status Reason Start Date Expiration Date Visits Re quested Visits Authorized [id number] Closed 09/05/2023 10/05/2023 1 1 Reason for Visit * MRI/CAT/PET Scan (Routine) - Closed Specialty Diagnoses / Procedures Referred By Chonac ammy Referred To Contact Radiology Diagnoses Stenosis Aortic Valve Acquired Procedures CT Chest Angiogram with IV Contrast Billy Segal APRN, C.N.P., D.N.P. [address] [place] [phone] [facility] Referral ID Status Reason Start Date Expiration Date Visits Re quested Visits Authorized [id number] Closed 09/05/2023 10/05/2023 1 1 Encounter Details Date Type Department Care Team (Latest Contact Info) Description 09/05/2023 6:40 AM CDT - 09/05/2023 11:59 PM CDT Hospital Encounter Department of Radiology, [facility], in [place], [place] [address] [place] [address] Billy Segal APRN, C.N.P., D.N.P. [address] [place] [phone] Stenosis Aortic Valve Acquired Discharge Disposition: Home [...] your living situation today? I have a [facility] place to live 08/29/2023 Sex [...] (Latest Contact Info) Description 12/21/2023 10:15 AM PRODUCT SAFETY ENGINEER Clinical Communication Virtual Review in [place], [place] [address] [place] [address] 12/24/2023 2:00 PM PRODUCT SAFETY ENGINEER Comprehensive Visit Department of Cardiovascular Medicine in [place], [place] [address] [place] [phone] Gudelia Soto M.D. [address] [place] [phone] 01/01/2024 3:45 PM PRODUCT SAFETY ENGINEER Comprehensive Visit Division of Hematology in [place], [place] [address] [place] [phone] Billy Segal APRN, C.N.P., D.N.P. [address] [place] [address] documented as of this encounter Procedures Procedure [...] documented as of this encounter Care Teams Technical Support Specialist Relationship Specialty Start Date End Date Elsewhere, Pcp PCP - General Internal Medicine 08/19/23 09/27/23 documented as of this encounter
--- OUTSIDE RECORDS SUMMARY | 2023-12-07 11:30 | XMS_ITS | Encounter Summary ---
Author Name Unknown Organization [facility] Address [address] [place] [address] Care Team Providers Care Art Psychotherapist Name Role Phone Elsewhere, Pcp Primary Care Provider Unavailabl e Reason for Referral * MRI/CAT/PET Scan (Routine) - Closed Specialty Diagnoses / Procedures Referred By Sebas gimenez Referred To Contact Radiology Diagnoses Stenosis Aortic Valve Acquired Procedures CT Chest Angiogram with IV Contrast Billy Segal APRN, C.N.P., D.N.P. [address] [place] [phone] [facility] Referral ID Status Reason Start Date Expiration Date Visits Re quested Visits Authorized [id number] Closed 09/05/2023 10/05/2023 1 1 * Outpatient (Routine) - Authorized Specialty Diagnoses / Procedures Referred By Sebas t Referred To Contact Hematology Diagnoses Anemia Iron Deficiency Billy Segal APRN, C.N.PJarrett, D.N.P. [address] [place] [phone] [facility] Referral ID Status Reason Start Date Expiration Date V isits Requested Visits Authorized [id number] Authorized 08/22/2023 08/21/2024 1 1 * Outpatient (Routine) - Closed Specialty Diagnoses / Procedures Referred By Sebas gimenez Referred To Contact Cardiovascular Surgery Diagnoses Stenosis Aortic Valve Acquired Billy Segal APRN, C.N.PJarrett, D.N.P. [address] [place] [phone] [facility] Referral ID Status Reason Start Date Expiration Date Visits Re quested Visits Authorized [id number] Closed 08/22/2023 08/21/2024 1 1 Reason for Visit * Reason Onset Date Comments Pre-visit Testing Orders 08/22/2023 Encounter Details Date Type Department Care Team (Latest Contact Info) Description 08/22/2023 Clinical Communication Department of Cardiovascular Medicine in [place], [place] [address] [place] [phone] Billy Segal APRN, C.N.PJarrett, D.N.P. [address] [place] [phone] Pre-visit Testing Orders Social History Tobacco Use [...] (Latest Contact Info) Description 12/21/2023 10:15 AM JOB COACHING Clinical Communication Virtual Review in [place], [place] [address] [place] [address] 12/24/2023 2:00 PM JOB COACHING Comprehensive Visit Department of Cardiovascular Medicine in [place], [place] [address] [place] [phone] Gudelia Soto M.D. [address] [place] [phone] 01/01/2024 3:45 PM JOB COACHING Comprehensive Visit Division of Hematology in [place], [place] [address] [place] [phone] Billy Segal APRN, C.N.P., D.N.P. [address] [place] [phone] Scheduled Referrals Name Type Priority Associated Diagnoses [...] documented as of this encounter Care Teams Art Psychotherapist Relationship Specialty Start Date End Date Elsewhere, Pcp PCP - General Internal Medicine 08/19/23 09/27/23 documented as of this encounter
--- OUTSIDE RECORDS SUMMARY | 2023-12-07 11:31 | XMS_ITS | Clinical Summary ---
Author Name Unknown Organization [facility] [employer] [facility] Address [place], [place] [address] Care Team Providers Care [place] Program Coordinator Name Role Phone Kylah Crum Staceymodesta JEFFERSON Primary Care Provider Medications No known medications Encounters Date Type Department Care Team Description 12/07/2023 11:18 AM DORMITORY SUPERVISOR Hospital Encounter [facility] [address] [place] [address] Yadira Ashton MD Arrived 12/07/2023 Travel 12/05/2023 11:24 AM DORMITORY SUPERVISOR - 12/05/2023 11:59 PM DORMITORY SUPERVISOR Hospital Encounter [facility] [address] [place] [address] Yadira Ashton MD 12/05/2023 Travel 12/03/2023 11:24 AM DORMITORY SUPERVISOR - 12/03/2023 11:59 PM DORMITORY SUPERVISOR Hospital Encounter [facility] [address] [place] [address] Yadira Ashton MD 12/03/2023 Travel 11/30/2023 11:19 AM DORMITORY SUPERVISOR - 11/30/2023 11:59 PM DORMITORY SUPERVISOR Hospital Encounter [facility] [address] [place] [address] Yadira Ashton MD 11/30/2023 Travel 11/28/2023 10:07 AM DORMITORY SUPERVISOR - 11/28/2023 11:59 PM DORMITORY SUPERVISOR Hospital Encounter [facility] [address] [place] [address] Yadira Ashton MD 11/28/2023 Travel 11/23/2023 11:30 AM DORMITORY SUPERVISOR - 11/23/2023 11:59 PM DORMITORY SUPERVISOR Hospital Encounter [facility] [address] [place] [address] Yadira Ashton MD 11/23/2023 Travel 11/21/2023 11:26 AM DORMITORY SUPERVISOR - 11/21/2023 11:59 PM DORMITORY SUPERVISOR Hospital Encounter [facility] [address] [place] [address] Yadira Ashton MD 11/21/2023 Travel 11/14/2023 Lab Requisition [facility] [phone] Jossie Lee MD 11/09/2023 4:00 PM DORMITORY SUPERVISOR Orders Only [facility] [address] [place] [address] 3 scans: (3-Ord) ECHO TTE COMPLETE WO CONTRAST ([id number]) 11/07/2023 11:25 AM DORMITORY SUPERVISOR - 11/07/2023 11:59 PM DORMITORY SUPERVISOR Hospital Encounter [facility] [address] [place] [address] Yadira Ashton MD 11/07/2023 Travel 11/02/2023 11:30 AM DORMITORY SUPERVISOR - 11/02/2023 11:59 PM DORMITORY SUPERVISOR Hospital Encounter [facility] [address] [place] [place] [address] Yadira Ashton MD 11/02/2023 Travel 10/29/2023 11:20 AM DORMITORY SUPERVISOR - 10/29/2023 11:59 PM DORMITORY SUPERVISOR Hospital Encounter [facility] [address] [place] [address] Yadira Ashton MD 10/29/2023 Travel 10/26/2023 11:30 AM DORMITORY SUPERVISOR - 10/26/2023 11:59 PM DORMITORY SUPERVISOR Hospital Encounter [facility] [address] [place] [address] Yadira Ashton MD 10/26/2023 Travel 10/24/2023 11:30 AM DORMITORY SUPERVISOR - 10/24/2023 11:59 PM DORMITORY SUPERVISOR Hospital Encounter [facility] [address] [place] [address] Yadira Ashton MD 10/24/2023 Travel 10/22/2023 11:30 AM DORMITORY SUPERVISOR - 10/22/2023 11:59 PM DORMITORY SUPERVISOR Hospital Encounter [facility] [address] [place] [address] Yadira Ashton MD 10/22/2023 Travel 10/19/2023 11:25 AM DORMITORY SUPERVISOR - 10/19/2023 11:59 PM DORMITORY SUPERVISOR Hospital Encounter [facility] [address] [place] [address] Yadira Ashton MD 10/19/2023 Travel 10/18/2023 Lab Requisition [facility] [phone] Rowena Reddy MD 10/17/2023 11:27 AM DORMITORY SUPERVISOR - 10/17/2023 11:59 PM DORMITORY SUPERVISOR Hospital Encounter [facility] [address] [place] [address] Yadira Ashton MD 10/17/2023 Travel 10/12/2023 11:09 AM DORMITORY SUPERVISOR - 10/12/2023 11:59 PM DORMITORY SUPERVISOR Hospital Encounter [facility] [address] [place] [address] Yadira Ashton MD 10/12/2023 Travel 10/10/2023 11:30 AM DORMITORY SUPERVISOR - 10/10/2023 11:59 PM DORMITORY SUPERVISOR Hospital Encounter [facility] [address] [place] [address] Yadira Ashton MD 10/10/2023 Travel 10/08/2023 11:30 AM DORMITORY SUPERVISOR - 10/08/2023 11:59 PM DORMITORY SUPERVISOR Hospital Encounter [facility] [address] [place] [address] Yadira Ashton MD 10/08/2023 Travel 10/03/2023 3:07 PM DORMITORY SUPERVISOR - 10/03/2023 6:12 PM DORMITORY SUPERVISOR Emergency [facility] [address] [address] Ankita Torres MD Weakness (Primary Dx) Discharge Disposition: Home Self Care 10/03/2023 3:00 PM DORMITORY SUPERVISOR Office Visit [facility] [address] [place] [address] Batsheva Perez NP Sob 10/03/2023 1:30 PM DORMITORY SUPERVISOR - 10/03/2023 3:06 PM DORMITORY SUPERVISOR Hospital Encounter [facility] [address] [place] [address] 10/03/2023 Travel from Last 3 Months Social History Tobacco Use Types Packs/Day Years Used Date Smoking Tobacco: Never Assessed Sex and Gender Information Value Date Recorded Sex Assigned at Not on file Gender Identity Not on file Sexual Orientation Not on file Obstetrics History Last Filed Vital Signs Vital Sign Reading Time Taken Comments Blood Pressure 107/69 10/03/2023 4:23 PM DORMITORY SUPERVISOR Pulse 84 10/03/2023 4:23 PM DORMITORY SUPERVISOR Temperature 36.8 ??C (98.2 ??F) 10/03/2023 3:16 PM CS T Respiratory Rate 20 10/03/2023 3:16 PM DORMITORY SUPERVISOR Oxygen Saturation 98% 10/03/2023 4:23 PM DORMITORY SUPERVISOR Inhaled Oxygen Concentration - - Weight 90.7 kg (200 lb) 10/03/2023 3:08 PM DORMITORY SUPERVISOR Height 172.7 cm (5' 8) 10/03/2023 3:08 PM DORMITORY SUPERVISOR Body Mass Index 30.41 10/03/2023 3:08 PM DORMITORY SUPERVISOR Plan of Treatment Upcoming Encounters Date Type Department Care Team (Late st Contact Info) Description 12/07/2023 11:18 AM DORMITORY SUPERVISOR Hospital Encounter [facility] [address] [place] [place] [address] Yadira Ashton MD [address] [facility] [place] [address] Arrived 12/10/2023 11:30 AM DORMITORY SUPERVISOR Appointment [facility] [address] [facility] [place] [address] 12/12/2023 11:30 AM DORMITORY SUPERVISOR Appointment [facility] [address] [facility] [place] [address] 12/14/2023 11:30 AM DORMITORY SUPERVISOR Appointment [facility] [address] [facility] [place] [address] 12/17/2023 11:30 AM DORMITORY SUPERVISOR Appointment [facility] [address] [facility] [place] [address] 12/19/2023 11:30 AM DORMITORY SUPERVISOR Appointment [facility] [address] [facility] [place] [address] 12/21/2023 11:30 AM DORMITORY SUPERVISOR Appointment [facility] [address] [facility] [place] [address] 12/24/2023 11:30 AM DORMITORY SUPERVISOR Appointment [facility] [address] [facility] [place] [address] 12/26/2023 11:30 AM DORMITORY SUPERVISOR Appointment [facility] [address] [facility] [place] [address] 12/28/2023 11:30 AM DORMITORY SUPERVISOR Appointment [facility] [address] [facility] [place] [address] 12/31/2023 11:30 AM DORMITORY SUPERVISOR Appointment [facility] [address] [facility] [place] [address] 01/02/2024 11:30 AM DORMITORY SUPERVISOR Appointment [facility] [address] [facility] [place] [address] 01/04/2024 11:30 AM DORMITORY SUPERVISOR Appointment [facility] [address] [facility] [place] [address] 01/07/2024 11:30 AM DORMITORY SUPERVISOR Appointment [facility] [address] [facility] [place] [address] 01/09/2024 11:30 AM DORMITORY SUPERVISOR Appointment [facility] [address] [place] [address] 01/11/2024 11:30 AM DORMITORY SUPERVISOR Appointment [facility] [address] [facility] [place] [address] 01/14/2024 11:30 AM DORMITORY SUPERVISOR Appointment [facility] [address] [place] [address] 01/16/2024 11:30 AM DORMITORY SUPERVISOR Appointment [facility] [address] [place] [address] Health Maintenance Due Date Last Done Comments [...] Priority Date/Time Associated Diagnosis Comments SCAN-CARDIAC REHABILITATION 12/05/2023 11:28 AM DORMITORY SUPERVISOR SCAN-CARDIAC REHABILITATION 12/03/2023 11:29 AM DORMITORY SUPERVISOR SCAN-CARDIAC REHABILITATION 11/30/2023 11:23 AM DORMITORY SUPERVISOR SCAN-CARDIAC REHABILITATION 11/28/2023 11:12 AM DORMITORY SUPERVISOR SCAN-CARDIAC REHABILITATION 11/23/2023 11:41 AM DORMITORY SUPERVISOR SCAN-CARDIAC REHABILITATION 11/21/2023 11:34 AM DORMITORY SUPERVISOR LAB TRACKING EVENT Routine 11/13/2023 2: 08 PM DORMITORY SUPERVISOR PATH NON FITNESS CONSULTANT CYTOLOGY Routine 11/13/2023 2:08 PM DORMITORY SUPERVISOR ECHO TTE COMPLETE WO CONTRAST Routine 11/09/2023 5:15 PM DORMITORY SUPERVISOR Fluid retention GALARZA (dyspnea on exertion) GLUCOSE METER Routine 11/07/2023 11:31 AM DORMITORY SUPERVISOR SCAN-CARDIAC REHABILITATION 11/07/2023 11:29 AM DORMITORY SUPERVISOR GLUCOSE METER Routine 11/02/2023 12:14 PM DORMITORY SUPERVISOR SCAN-CARDIAC REHABILITATION 11/02/2023 11:39 AM DORMITORY SUPERVISOR GLUCOSE METER Routine 11/02/2023 11:38 AM DORMITORY SUPERVISOR GLUCOSE METER Routine 10/29/2023 12:25 PM DORMITORY SUPERVISOR SCAN-CARDIAC REHABILITATION 10/29/2023 11:25 AM DORMITORY SUPERVISOR GLUCOSE METER Routine 10/29/2023 11:24 AM DORMITORY SUPERVISOR SCAN-CARDIAC REHABILITATION 10/26/2023 11:45 AM DORMITORY SUPERVISOR SCAN-CARDIAC REHABILITATION 10/24/2023 11:39 AM DORMITORY SUPERVISOR SCAN-CARDIAC REHABILITATION 10/24/2023 11:39 AM DORMITORY SUPERVISOR SCAN-CARDIAC REHABILITATION 10/22/2023 11:43 AM DORMITORY SUPERVISOR SCAN-CARDIAC REHABILITATION 10/19/2023 11:30 AM DORMITORY SUPERVISOR PERIPHERAL BLD MORPHOLOGY Routine 10/18/2023 3:24 PM DORMITORY SUPERVISOR LAB TRACKING EVENT Routine 10/18/2023 2: 50 PM DORMITORY SUPERVISOR GLUCOSE METER Routine 10/17/2023 12:19 PM DORMITORY SUPERVISOR GLUCOSE METER Routine 10/17/2023 11:37 AM DORMITORY SUPERVISOR SCAN-CARDIAC REHABILITATION 10/17/2023 11:33 AM DORMITORY SUPERVISOR GLUCOSE METER Routine 10/12/2023 12:21 PM DORMITORY SUPERVISOR SCAN-CARDIAC REHABILITATION 10/12/2023 11:21 AM DORMITORY SUPERVISOR GLUCOSE METER Routine 10/12/2023 11:20 AM DORMITORY SUPERVISOR SCAN-CARDIAC REHABILITATION 10/10/2023 11:36 AM DORMITORY SUPERVISOR SCAN-CARDIAC REHABILITATION 10/08/2023 11:43 AM DORMITORY SUPERVISOR URINE CULTURE STAT 10/03/2023 6:00 PM DORMITORY SUPERVISOR UA W/ SEDIMENT EXAM REFLEXED PER CRITERIA Today 10/03/2023 6:00 PM DORMITORY SUPERVISOR BLOOD CULTURE STAT 10/03/2023 5:41 PM DORMITORY SUPERVISOR TROPONIN T (HS) ONE TIME Timed 10/03/2023 5:41 PM DORMITORY SUPERVISOR BLOOD CULTURE STAT 10/03/2023 5:35 PM DORMITORY SUPERVISOR XR CHEST 1 VIEW PORTABLE STAT 10/03/2023 4:29 PM DORMITORY SUPERVISOR COVID-19 MOLECULAR STAT 10/03/2023 4: 15 PM DORMITORY SUPERVISOR INFLUENZA A/B PCR STAT 10/03/2023 4:1 5 PM DORMITORY SUPERVISOR CBC WITH AUTO DIFFERENTIAL STAT 10/03/2023 4:00 PM DORMITORY SUPERVISOR PROTIME-INR STAT 10/03/2023 4:00 PM DORMITORY SUPERVISOR TROPONIN T (HS) ACUTE W/2HR REFLEX STAT 10/03/2023 4:00 PM DORMITORY SUPERVISOR PRO-BNP STAT 10/03/2023 4:00 PM DORMITORY SUPERVISOR COMP METABOLIC PANEL STAT 10/03/2023 4:00 PM DORMITORY SUPERVISOR CBC WITH AUTO DIFFERENTIAL STAT 10/03/2023 4:00 PM DORMITORY SUPERVISOR EKG 12 LEAD STAT 10/03/2023 3:46 PM DORMITORY SUPERVISOR GLUCOSE METER Routine 10/03/2023 2:36 PM DORMITORY SUPERVISOR SCAN-CARDIAC REHABILITATION 10/03/2023 2:31 PM DORMITORY SUPERVISOR from Last 3 Months Results * SCAN-CARDIAC REHABILITATION (12/05/2023 11:28 AM DORMITORY SUPERVISOR) Only the most recent of19 resultswithin the time period is included. Scanner OTHER * LAB TRACKING EVENT (11/13/2023 2:08 PM DORMITORY SUPERVISOR) Only the most recent of2 resultswithin the time period is included. Other (Other) Client Collect / Unknown 11/13/2023 2:08 PM DORMITORY SUPERVISOR 11/14/2023 8:59 PM DORMITORY SUPERVISOR Jossie Lee MD LAB BILL ONLY [email or web address] [address] [place] [address], * PATH NON FITNESS CONSULTANT CYTOLOGY (11/13/2023 2:08 PM DORMITORY SUPERVISOR) Case Report Medical Cytology Report ? Case: [id number] ? Authorizing Provider: ??Jossie Lee MD ?Collected: ? 11/13/2023 1408 ? Ordering Location: ? [facility] ?Received: ?11/15/2023 0746 ? Pathologist: ? Bere Garza MD ? Specimen: ?Pleural Fluid ? 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 11/16/2023 9:11 AM DORMITORY SUPERVISOR [facility] Gross Description A) SOURCE: [...] more than 72 hours. 11/16/2023 9:11 AM DORMITORY SUPERVISOR [facility] Microscopic Description Specimen adequacy: Adequate for interpretation. All slides were reviewed. The microscopic appearance substantiates the diagnosis. 11/16/2023 9:11 AM DORMITORY SUPERVISOR [facility] Additional Information Cytology is screened at [facility] - [address], [place] [address] and [facility] - [address] [place] [address] and [facility] - [address] [place] [address] Interpreted at [facility] - [address], [place] [address] 11/16/2023 9:11 AM DORMITORY SUPERVISOR [facility] Other PLEURAL FLUID SPECIMEN / Unknown 11/13/2023 2:08 PM DORMITORY SUPERVISOR 11/15/2023 7:46 AM DORMITORY SUPERVISOR Jossie Lee MD PATHOLOGY/CYTOLOGY [facility] [address] [place] [address], [place] * ECHO TTE COMPLETE WO CONTRAST (11/09/2023 5:15 PM DORMITORY SUPERVISOR) AORTIC VALVE MEAN PG 4 mmHg EJECTION FRACTION 63 % LVEDD 3.8 cm EJECTION FRACTION 60 - 65% Anatomical Region Laterality Modality Ultrasound 11/09/2023 3:40 PM DORMITORY SUPERVISOR Narrative 11/11/2023 7:58 AM DORMITORY SUPERVISOR ECHOCARDIOGRAM MIRIAN DURAN ?Accession#: ?? [id number] : ?1950 73 years Study Date: ?? 11/09/2023 3:40:14 PM Gender: M ? BP: ? 130/88 mmHg Height: 175.00 cm ? BSA: ?2.07 m? ? ? Weight: 91.00 kg ?Tech: ? MJS ?Referring MD: ELDON GARCIA Site: ? [facility] Reading Location: [facility] Patient Location: Inpatient. Procedure: 2D, Color Doppler [...] . This study was interpreted by an [facility] accredited facility. CC: HIM (med records) [facility], Med/Surg - IP [facility]. ??Final ?? Procedure Note Home Baeza MD - 11/11/2023 ECHOCARDIOGRAM MIRIAN DURAN : 1950 73 years Study Date: 11/09/2023 3:40:14 PM Gender: M BP: 130/88 mmHg Height: 175.00 cm BSA: 2.07 m? ? ? Weight: 91.00 kg Tech: [facility] Referring MD: ELDON GARCIA Site: [facility] Reading Location: [facility] Patient Location: Inpatient. Procedure: 2D, Color [...] . This study was interpreted by an [facility] accredited facility. CC: MARGARET (med records) [facility], Med/Surg - IP [facility]. Final Eldon VAZQUEZ ECHO ORD * (ABNORMAL) GLUCOSE METER (11/07/2023 11:31 AM DORMITORY SUPERVISOR) Only the most recent of10 resultswithin the time period is included. Pathologist [facility] GLUCOSE METER 225(H) 65 - 100 mg/dL 11/07/2023 11:36 AM DORMITORY SUPERVISOR [facility] Blood BLOOD SPECIMEN / Unknown 11/07/2023 11:31 AM DORMITORY SUPERVISOR 11/07/2023 11:36 AM DORMITORY SUPERVISOR Yadira Ashton MD CHEMISTRY [facility] [address] [place] [address] * PERIPHERAL BLD MORPHOLOGY (10/18/2023 3:24 PM DORMITORY SUPERVISOR) [facility] Case Report Special Hematology Report ? Case: [id number] ? Authorizing Provider: ??Rowena Reddy MD ?Collected: ? 10/18/2023 1524 ? Ordering Location: ? [facility] ?Received: ?10/19/2023 1022 ? Pathologist: ? Dl Silva, ? MD ? Specimen: ?Peripheral Blood ? 10/21/2023 8:27 AM DORMITORY SUPERVISOR [email or web address] Final Diagnosis PERIPHERAL BLOOD: 1. Mild normocytic anemia with acanthocytes (may be associated with renal and/or liver insufficiency) 2. See comment 10/21/2023 8:27 AM [email or web address] Comment The features of the anemia are nonspecific. The differential includes iron deficiency, anemia of chronic disease, anemia of renal insufficiency (eGFR = 32), anatomic blood loss and medication effect. There is no morphologic evidence of hemolysis. Clinical correlation is recommended. This case was also reviewed by Alysa Al MT, MS ([facility]). 10/21/2023 8:27 AM [email or web address] Clinical Information The patient is a 73-year-old male. As of 10/03/23 16:00 CREATININE: 2.16 (H) eGFR: ? 32 (L) 10/21/2023 8:27 AM [email or web address] CBC and Differential HEMATOLOGY PARAMETERS Tested at: ??[facility] - ? RESULTS ??EXPECTED VALUES WBC: ? 8.9 ?4.5-27a9447/cu mm ? RBC: ? 3.54 ? 4.30-5.90 mil/cumm ??DECREASED HGB: ? 10.3 ? 13.5-17.5 gm/di ? DECREASED HCT: ? 33.7 ? 37-53% ?DECREASED MCV: ? 95.0 ? 80-100 fl ? NORMOCYTIC MCH: ? 29.0 ? 26-34 pg ? MCHC: ?31.0 ? 32-36 gm/dl ? HYPOCHROMIC RDW: ? 13.8 ? 11.5-15.5% ? PLT: ? 299 ?140-219u5211/u L ? Differential ?Tested at: ??[facility] - ?Absolute (%) ?Expected (%) ?(x10*9/L) ? (x10*9/L) Neutrophils: ?6.9 (77.2) ?1.7-7.0 (42-72%) ? Lymphocytes: ?1 (11.2) ?0.9-2.9 (20-44%) ?? Monocytes: ?0.82 (9.2) ? <0.9 (0-11%) ? Eosinophils: ?0.16 (1.8) ? <0.5 (0-2%) ? Basophils: ?0.02 (.2) ?<0.3 (<3.0%) ? Imm Grans: ?0.03 (.3) ?<0.3 (0-3%) ? (Metas, Myelos,Pros) 10/21/2023 8:27 AM [facility]AL LABORATORY Microscopic Description The final diagnosis is based on microscopic examination of an appropriately stained blood smear. 10/21/2023 8:27 AM DORMITORY SUPERVISOR [facility] EN[facility] LABORAT[facility] Additional Information Interpreted at [facility] - [address] [facility] [address], [place] [address] 10/21/2023 8:27 AM [facility] Blood (Peripheral Blood) 10/18/2023 3:24 PM DORMITORY SUPERVISOR 10/19/2023 10:22 AM DORMITORY SUPERVISOR Rowena Reddy MD HEMATOLOGY Performing Organization Address [facility]/ZIP Co de Phone Number [facility] [address] [place] [address], [place] * URINE CULTURE (10/03/2023 6:00 PM DORMITORY SUPERVISOR) CULTURE No growth (<1,000 CFU/mL) 10/04/2023 3:02 PM DORMITORY SUPERVISOR [facility] Urine URINE SPECIMEN / Unknown Non-Blood / Unknown 10/03/2023 6:00 PM DORMITORY SUPERVISOR 10/03/2023 6:00 PM DORMITORY SUPERVISOR Ankita Torres MD MICROBIOL OGY Performing Organization Address [facility]/ZIP Co de Phone Number [facility] [address] [place] [address], [place] * UA W/ SEDIMENT EXAM REFLEXED PER CRITERIA (10/03/2023 6:00 PM DORMITORY SUPERVISOR) COLOR Yellow Yellow Color 10/03/2023 6:05 PM [facility] CLARITY Clear Clear Clarity 10/03/2023 6:05 PM [facility] SPECIFIC GRAVITY,URINE 1.020 1.010, 1.015, 1.020, 1.025 10/03/2023 6:05 PM [facility] PH,URINE 5.5 6.0, 7.0, 8.0, 5.5, 6.5, 7.5, 8.5 10/03/2023 6:05 PM [facility] UROBILINOGEN, QUALITATIVE Normal Normal EU/dl 10/03/2023 6:05 PM [facility] PROTEIN, URINE Negative Negative mg/dL 10/03/2023 6:05 PM [facility] GLUCOSE, URINE Negative Negative mg/dL 10/03/2023 6:05 PM [facility] KETONES,URINE Negative Negative mg/dL 10/03/2023 6:05 PM [facility] BILIRUBIN,URI NE Negative Negative 10/03/2023 6:05 PM [facility] OCCULT BLOOD,URINE Negative Negative 10/03/2023 6:05 PM [facility] NITRITE Negative Negative 10/03/2023 6:05 PM [facility] LEUKOCYTE ESTERASE Negative Negative 10/03/2023 6:05 PM [facility] Urine URINE SPECIMEN / Unknown Non-Blood / Unknown 10/03/2023 6:00 PM DORMITORY SUPERVISOR 10/03/2023 6:00 PM DORMITORY SUPERVISOR Ankita Torres MD URINE Performing Organization Address City/[facility]/ZIP Co de Phone Number [facility] [address] [place] [address] * (ABNORMAL) TROPONIN T (HS) ONE TIME (10/03/2023 5:41 PM DORMITORY SUPERVISOR) Pathologist [facility] TROPONIN T HS 225(H) 6-15 ng/L ng/L 10/03/2023 6:02 PM [facility] Blood BLOOD SPECIMEN / Unknown Butterfly / Unknown 10/03/2023 5:41 PM DORMITORY SUPERVISOR 10/03/2023 5:44 PM DORMITORY SUPERVISOR Ankita Torres MD CHEMISTRY [facility] [address] [place] [address] * BLOOD CULTURE (10/03/2023 5:41 PM DORMITORY SUPERVISOR) Only the most recent of2 resultswithin the time period is included. Pathologist [facility] CULTURE No Growth. 10/09/2023 5:13 AM [facility] Blood BLOOD SPECIMEN / Unknown Butterfly / Unknown 10/03/2023 5:41 PM DORMITORY SUPERVISOR 10/03/2023 5:45 PM DORMITORY SUPERVISOR Narrative [facility] - 10/09/2023 5:13 AM DORMITORY SUPERVISOR Low volume blood culture received; possible false negative culture. Ankita Torres MD MICROBIOL OGY [facility] [address] [place] [address] * XR CHEST 1 VIEW PORTABLE (10/03/2023 4:29 PM DORMITORY SUPERVISOR) Anatomical Region Laterality Modality HEART, THORAX, CHEST Digital Rad iography 10/03/2023 5:19 PM DORMITORY SUPERVISOR Narrative 10/03/2023 5:19 PM DORMITORY SUPERVISOR For Patients: ??As a result of the [...] MD @ 10/03/2023 5:19:17 PM (Electronically Signed) Ankita Torres MD [facility] * COVID-19 MOLECULAR (10/03/2023 4:15 PM DORMITORY SUPERVISOR) COVID 19 [place] MOLECULAR Not detected Not detected 10/03/2023 5:01 PM DORMITORY SUPERVISOR [facility] TESTING LABORATORY [facility] 10/03/2023 5:01 PM DORMITORY SUPERVISOR [facility] Comment:Specimen submitted t o [facility] for testing. Other SPECIMEN FROM NASOPHARYNGEAL STRUCTURE / Unknown Non-Blood / Unknown 10/03/2023 4:15 PM DORMITORY SUPERVISOR 10/03/2023 4:23 PM DORMITORY SUPERVISOR [facility]ORATORY - 10/03/2023 5:01 PM DORMITORY SUPERVISOR This test has been authorized by FDA [...] Torres MD MICROBIOL OGY Performing Organization Address City/State/[facility] Co de Phone Number [facility] [address] [place] [address] * INFLUENZA A/B PCR (10/03/2023 4:15 PM DORMITORY SUPERVISOR) INFLUENZA A PCR NOT Detected 10/03/2023 5:01 PM DORMITORY SUPERVISOR [facility] INFLUENZA B PCR NOT Detected 10/03/2023 5:01 PM DORMITORY SUPERVISOR [facility] Other SPECIMEN FROM NASOPHARYNGEAL STRUCTURE / Unknown Non-Blood / Unknown 10/03/2023 4:15 PM DORMITORY SUPERVISOR 10/03/2023 4:23 PM DORMITORY SUPERVISOR Ankita Torres MD MICROBIOL OGY [facility] [address] [place] [address] * (ABNORMAL) TROPONIN T (HS) ACUTE W/2HR REFLEX (10/03/2023 4:00 PM DORMITORY SUPERVISOR) TROPONIN T HS 244(H) 6-15 ng/L ng/L 10/03/2023 4:37 PM DORMITORY SUPERVISOR [facility] Blood BLOOD SPECIMEN / Unknown Butterfly / Unknown 10/03/2023 4:00 PM DORMITORY SUPERVISOR 10/03/2023 4:02 PM DORMITORY SUPERVISOR Narrative [facility] - 10/03/2023 4:37 PM DORMITORY SUPERVISOR hs-cTnT (Elecsys Troponin T Gen 5) concentration [...] department patient population. Ankita Torres MD CHEMISTRY [facility] [address] [place] [address] * (ABNORMAL) CBC WITH AUTO DIFFERENTIAL (10/03/2023 4:00 PM [facility]) WHITE BLOOD COUNT 11.5(H) 4.5 - 11.0 thou/cu mm 10/03/2023 4:09 PM [facility] RED BLOOD COUNT 2.97(L) 4.30 - 5.90 mil/cu mm 10/03/2023 4:09 PM [facility] HEMOGLOBIN 9.1(L) 13.5 - 17.5 g/dL 10/03/2023 4:09 PM [facility] HEMATOCRIT 29.0(L) 37.0 - 53.0 % 10/03/2023 4:09 PM [facility] MCV 98 80 - 100 fL 10/03/2023 4:09 PM [facility] MCH 30.6 26.0 - 34.0 pg 10/03/2023 4:09 PM [facility] MCHC 31.4(L) 32.0 - 36.0 g/dL 10/03/2023 4:09 PM [facility] RDW 14.4 11.5 - 15.5 % 10/03/2023 4:09 PM [facility] PLATELET COUNT 399 140 - 440 thou/cu mm 10/03/2023 4:09 PM [facility] MPV 9.4 6.5 - 11.0 fL 10/03/2023 4:09 PM [facility] % NEUT 82.4 % 10/03/2023 4:09 PM [facility] % LYMPH 7.3 % 10/03/2023 4:09 PM [facility] % MONO 9.4 % 10/03/2023 4:09 PM [facility] % EOS 0.6 % 10/03/2023 4:09 PM [facility] % BASO 0.3 % 10/03/2023 4:09 PM [facility] ABSOLUTE NEUTROPHILS 9.5(H) 1.7 - 7.0 thou/cu mm 10/03/2023 4:09 PM [facility] ABSOLUTE LYMPHOCYTES 0.8(L) 0.9 - 2.9 thou/cu mm 10/03/2023 4:09 PM [facility] ABSOLUTE MONOCYTES 1.1(H) <0.9 thou/cu mm 10/03/2023 4:09 PM [facility] ABSOLUTE EOSINOPHILS 0.1 <0.5 thou/cu mm 10/03/2023 4:09 PM [facility] ABSOLUTE BASOPHILS 0.0 <0.3 thou/cu mm 10/03/2023 4:09 PM [facility] Blood BLOOD SPECIMEN / Unknown Butterfly / Unknown 10/03/2023 4:00 PM DORMITORY SUPERVISOR 10/03/2023 4:02 PM DORMITORY SUPERVISOR Ankita Torres MD HEMATOLOG Y [facility] [address], [place] [id number] * (ABNORMAL) PROTIME-INR (10/03/2023 4:00 PM DORMITORY SUPERVISOR) INR 1.9(H) <1.3 10/03/2023 4:09 PM [facility] PROTIME 20.5(H) 10.3 - 12.3 sec 10/03/2023 4:09 PM [facility] Blood BLOOD SPECIMEN / Unknown Butterfly / Unknown 10/03/2023 4:00 PM DORMITORY SUPERVISOR 10/03/2023 4:02 PM DORMITORY SUPERVISOR Narrative [facility] - 10/03/2023 4:09 PM DORMITORY SUPERVISOR ?Therapeutic Range 2.0-3.0 for most anticoagulated patients [...] on UFH. Ankita Torres MD HEMATOLOG Y [facility] [address] [place] [address] * (ABNORMAL) PRO-BNP (10/03/2023 4:00 PM DORMITORY SUPERVISOR) [facility] PRO-BNP 7,213(H) <125 pg/mL 10/03/2023 4:46 PM DORMITORY SUPERVISOR [facility] Blood BLOOD SPECIMEN / Unknown Butterfly / Unknown 10/03/2023 4:00 PM DORMITORY SUPERVISOR 10/03/2023 4:02 PM DORMITORY SUPERVISOR Narrative [facility] - 10/03/2023 4:46 PM DORMITORY SUPERVISOR The following cut-points have been suggested for [...] failure. ? Ankita Torres MD SEND OUTS [facility] [address] [place] [address] * (ABNORMAL) COMP METABOLIC PANEL (10/03/2023 4:00 PM [facility]) SODIUM 138 136 - 145 mmol/L 10/03/2023 4:37 PM [facility] POTASSIUM 5.0 3.5 - 5.1 mmol/L 10/03/2023 4:37 PM [facility] CHLORIDE 101 98 - 107 mmol/L 10/03/2023 4:37 PM [facility] CO2,TOTAL 27 22 - 29 mmol/L 10/03/2023 4:37 PM [facility] ANION GAP 10 5 - 18 10/03/2023 4:37 PM [facility] GLUCOSE 171(H) 70 - 99 mg/dL 10/03/2023 4:37 PM [facility] CALCIUM 9.0 8.8 - 10.2 mg/dL 10/03/2023 4:37 PM [facility] BUN 37(H) 8 - 23 mg/dL 10/03/2023 4:37 PM [facility] CREATININE 2.16(H) 0.70 - 1.20 mg/dL 10/03/2023 4:37 PM [facility] BUN/CREAT RATIO 17 10 - 20 4:37 PM [facility] eGFR 32(L) >90 mL/min/1.7 3m2 10/03/2023 4:37 PM [facility] Comment:As of 2022, eG FR is calculated by the CKD-EPI creatinine equation without race adjustment. ??eGFR can be influenced by muscle mass, exercise, and diet. ??The reported eGFR is an estimation only and is only applicable if the renal function is stable. ALBUMIN 3.3(L) 4.0 - 4.9 g/dL 10/03/2023 4:37 PM [facility] PROTEIN,TOTAL 6.4 6.0 - 8.0 g/dL 10/03/2023 4:37 PM [facility] BILIRUBIN,TOTAL 0.5 0.0 - 1.2 mg/dL 10/03/2023 4:37 PM [facility] ALK PHOSPHATASE 102 40 - 129 IU/L 10/03/2023 4:37 PM [facility] ALT (SGPT) 13 10 - 50 IU/L 10/03/2023 4:37 PM [facility] AST (SGOT) 16 10 - 50 IU/L 10/03/2023 4:37 PM [facility] Blood BLOOD SPECIMEN / Unknown Butterfly / Unknown 10/03/2023 4:00 PM DORMITORY SUPERVISOR 10/03/2023 4:02 PM DORMITORY SUPERVISOR Ankita Torres MD CHEMISTRY Performing Organization Address City/[facility] Co de Phone Number [facility] [address] [place] [address] * EKG 12 LEAD (10/03/2023 3:46 PM DORMITORY SUPERVISOR) Interpretation Normal sinus rhythm Low voltage QRS Borderline ECG No previous ECGs available ??compaired to fowler 09/25/23 ??no change BEYOND NOW Ventricular Rate 77 BPM BEYOND NOW Atrial Rate 77 BPM BEYOND NOW P-R Interval 132 ms BEYOND NOW QRS Duration 86 ms BEYOND NOW QT 406 ms BEYOND NOW QTc 459 ms BEYOND NOW P [place] 31 degrees BEYOND NOW R [place] 44 degrees BEYOND NOW T [place] 53 degrees BEYOND NOW 10/03/2023 3:46 PM DORMITORY SUPERVISOR 10/03/2023 6:19 PM DORMITORY SUPERVISOR Ankita Torres MD EKG ORD Performing Organization Address City/[facility] Co de Phone Number BEYOND NOW [place], [place] from Last 3 Months Care Teams [place] Program Coordinator Relationship Specialty Start Date End Date Kylah Crum MBBS [address] [place] [id number] PCP - General Family Practice 10/03/23
--- OUTSIDE RECORDS SUMMARY | 2023-12-07 11:31 | XMS_ITS | Encounter Summary ---
Author Name Unknown Organization [facility] Address [address] [place] [address] Care Team Providers Care Annual Giving Manager Name Role Phone Elsewhere, Pcp Primary Care Provider Unavailabl e Reason for Visit * Reason Comments Chest Pain * Auth/Cert (Routine) Specialty Diagnoses / Procedures Referred By Contac t Referred To Contact Diagnoses Stenosis Mitral And Aortic Stenosis Pain Chest Procedures ER Referral ID Status Reason Start Date Expiration Date Visits Re quested Visits Authorized [id number] 1 1 Encounter Details Date Type Department Care Team (Late st Contact Info) Description 08/21/2023 2:35 PM CDT - 08/21/2023 3:50 PM CDT Surgery Division of Cardiovascular Diseases in [place], [place] [address] [place] [address] Ezequiel Jack M.D. [address] [place] [phone] CORONARY ANGIOGRAPHY Social History Tobacco Use Types [...] - 1 event recorded on loop recorder ([id number]), lasting 8 minutes on 11/25/20 #7 Hypertension [...] 4:00 PM Sarah Miller M.D., M.P.H.; 01 [facility] Cardi[facility] Surgery 09/19/2023 4:30 PM 01 [facility]; [facility] Cardiovascular Surgery For appointment details refer to your Patient Appointment Guide. HOSPITAL COURSE Admission Weight: 86.5 kg Dismissal Weight: 82.6 kg BMI: Body mass index is 27.6 kg/m??. Mr. Harris is a 73-year-old gentleman who presented to [facility] emergency department with shortness of breath with [...] symptoms. This prompted him to present to [facility] emergency department. Of note, he was seen by his local provider on 08/08/23, his Lisinopril dose was decreased to 2.5 mg daily at that time due to hypotension and was referred to [facility] for an echocardiogram to monitor his aortic [...] dose Aspirin. He was admitted to the [facility] service for further monitoring and [...] of Atrial Fibrillation during the period of 4148-8199, on 11/25/20 that lasted for 8 minutes. [...] Status Erythropoietin (EPO) In process Pernicious Anemia [place] In process DISCHARGE DISPOSITION: Home or Self [...] through Care Everywhere. * Pantoprazole (By mouth) (Cook Islander) * Acetaminophen (By mouth) ([place]) documented in this encounter Medications at Time [...] 81 mg this hospitalization S/p loop recorder, [id number]. Per chart showed 1-4 events of AF. [...] - 1 event recorded on loop recorder ([id number]), lasting 8 minutes on 11/25/20 #6 Hypertension #7 Hyperlipidemia #8 Type 2 diabetes mellitus, most recent A1C 6.3 (05/01/23) #9 BPH #10 Iron deficiency anemia #11 Hypomagnesemia - repleted #12 GERD Mr. Harris is a 73 y.o. male who was admitted to [facility] service for shortness of breathand [...] Fibrillation lasting 8 minutes on 11/25/20 from 3460-3920. He was on high dose Aspirin. Given [...] - 1 event recorded on loop recorder ([id number]), lasting 8 minutes on 11/25/20 #5 Hypertension #6 Hyperlipidemia #7 Type 2 diabetes mellitus, most recent A1C 6.3 (05/01/23) #8 BPH #9 Iron deficiency anemia #10 Hypomagnesemia Mr. Harris is a 73 y.o. male who was admitted to [facility] service for shortness of breathand [...] hour. This prompted him to present to [place] [facility] emergency department. He stated that the pain was not radiating and did not have other associated symptoms. Of note, he was seen by his local provider on 08/08/23, his Lisinopril dose was decreased to 2.5 mg daily due to hypotension and was referred to [facility] for an echocardiogram to monitor his aortic [...] dose Aspirin. He was admitted to the [facility] service for further monitoring and [...] lasting for 8 minutes on 11/25/20 from 9541-2450. He remains on high dose Aspirin. PLAN: [...] assessment, and plan as documented by GEORGE Sailnas in addition to what I havedocumented below. [...] does not have a prior history of OH but did have a stroke in 2019. [...] On full dose aspirin S/p loop recorder, 5828-1615. Per chart showed 1-4 events of AF. [...] 08/19/2023 8:26 PM CDT SUBJECTIVE REFERRAL SOURCE [facility] Emergency Room, [facility], [place], [place] CHIEF COMPLAINT/REASON FOR VISIT Episodes of [...] trouble viewing the loop recorder reports in [facility] everywhere. Patient presented to the emergency [...] area of 1.43 cm^2 (report available in [facility] everywhere). LVEF was approximately 70%. Electrocardiogram [...] per review of labo ratory results in [facility] Everywhere. Chest x-ray revealed no focal [...] area of 1.43 cm^2 (report available in [facility] everywhere). As of August 17, 2023 echocardiogram [...] reviewing the complete loop recorder reports from [facility] everywhere-we will continue to follow up [...] is a 73 y.o. male admitted to [place] [address] for evaluation and management of chest pain and dyspnea in the setting of known severe aortic stenosis. [facility] was consulted for consideration for surgical aortic valve replacement. Patient will need his coronary arteries evaluated for CAD. This consult will be staffed by Dr. Miller. Please call the [facility] user experience team lead pager [phone]) with any questions. documented in this encounter Nursing Notes * Kleber Sharma R.N. - 08/22/2023 10:53 AM CDT Shift Goals: Clinical Goals for the Shift: Patient will remain NPO overnight. Identify possible barriers to meeting goals/advancing plan of care: None End of Shift Summary: Patient was discharge to [facility] with his . All VSS at time [...] aortic stenosis. Echo was done here at [facility] last Sunday but he has nofollow-up appointments. They recently moved to [place]. They have been getting care in [place]. We have no medical records for comparison. [...] ECG interpretation is documented in ED Course. Normna Mcdonough D.O. 08/19/23 173 Norman Mcdonough D.O. [...] Aortic Stenosis Mare Noble M.D. Resident 08/19/23 6414 * Rowena Oro, RJarrettN. - 08/19/2023 3:22 [...] is a 73-year-old gentleman who presented to [facility] emergency department with shortness of breath with [...] symptoms. This prompted him to present to [facility] emergency department. Of note, he was seen by his local provider on 08/08/23, his Lisinopril dose was decreased to 2.5 mg daily at that time due to hypotension and was referred to [facility] for an echocardiogram to monitor his aortic [...] dose Aspirin. He was admitted to the [facility] service for further monitoring and [...] of Atrial Fibrillation during the period of 5790-8728, on 11/25/20 that lasted for 8 minutes. [...] (Latest Contact Info) Description 12/21/2023 10:15 AM [employer] Clinical Communication Virtual Review in [place], [place] 200 [place] [address] 12/24/2023 2:00 PM [employer] Comprehensive Visit Department of Cardiovascular Medicine in [place], [place] [address] [place] [phone] Gudelia Soto M.D. [address] [place] [phone] 01/01/2024 3:45 PM [employer] Comprehensive Visit Division of Hematology in [address] [phone] Billy Segal APRN, RadhaN.P., D.N.P. [address] [place] [phone] documented as of this encounter Procedures Procedure [...] * Glucose, POCT (08/22/2023 6:47 AM CDT) [facility] Glucose, POCT, B 127 70 - 140 mg/dL 08/22/2023 6:50 AM CDT PCLX Site Capillary 08/22/2023 6:50 AM CDT PCLX Blood 08/22/2023 6:47 AM CDT 08/22/2023 6:50 AM CDT Unknown Provider LAB POCT ORDERABLES- MANUAL Performing Organization Address City/[facility]/ZIP Co de Phone Number POC [facility] [address] [place] [address], [facility] PCLX [facility] POC [address] [place] [address] * Gastrin (08/22/2023 5:14 AM CDT) [facility] Gastrin, S 21 pg/mL 08/22/2023 6:26 PM CDT [facility] Comment: Not consistent with pernicious anemia. ----REFERENCE VALUE---- <100 Reference ranges valid for >= 8 hour fast. Blood 08/22/2023 5:14 AM CDT 08/22/2023 3:36 PM CDT Billy Segal APRN, C.N.P., D.N.P. LAB BLOOD NON ADD-ON [facility] [address] [place] [address] [facility] [address] [place] [address] * Intrinsic Factor Blocking Antibody, Serum (08/22/2023 5:14 AM CDT) Intrinsic Factor Blocking Ab, S Negative Negative 08/22/2023 1:13 PM CDT [facility] Comment:Gastrin test was per formed. Comment SEE COMMENT 08/22/2023 1:13 PM CDT [facility] Comment: Intrinsic Factor Blocking Antibody (IFBA) antibodies are absent in approximately 50% of individuals with pernicious anemia (PA). The absence of elevated IFBA antibodies does not rule out the presence of PA; further studies such as gastrin testing may be indicated. Blood 08/22/2023 5:14 AM CDT 08/22/2023 10:03 AM CDT Billy Segal APRN, C.N.P., D.N.P. LAB BLOOD NON ADD-ON [facility] [address] [place] [address] [facility] [address] [place] [address] * (ABNORMAL) Comprehensive Metabolic Panel (08/22/2023 5:14 AM CDT) Pathologist [facility] Potassium, S 4.7 3.6 - 5.2 mmol/L [...] Segal APRN, C.N.P., D.N.P. [place] [address], [facility] [place] 200 [place] [address] * Ferritin (08/22/2023 5:14 AM CDT) Ferritin, S 243 31 - 409 mcg/L 08/22/2023 6:31 AM CDT DTL Blood (Blood, Venous) 08/22/2023 5:14 AM CDT 08/22/2023 6:06 AM CDT Billy Segal APRN, C.N.P., D.N.P. LAB BLOOD ADD-ON [facility] [address] [place] [address], [facility] 200 [place] [address] * (ABNORMAL) Iron and Total Iron-Binding Capacity (08/22/2023 5:14 AM CDT) Pathologist [facility] Iron 72 50 - 150 mcg/dL 08/22/2023 6:31 AM CDT DTL Total Iron Binding Capacity 203(L) 250 - 400 mcg/dL 08/22/2023 6:31 AM CDT DTL Percent Saturation 35 14 - 50 % 08/22/2023 6:31 AM CDT DTL Blood (Blood, Venous) 08/22/2023 5:14 AM CDT 08/22/2023 6:06 AM CDT Cata Richards APRN.N.P., D.N.P. LAB BLOOD ADD-ON Performing Organization Address [facility] Co de Phone Number [facility] [address] [place] [address], [facility] 200 [place] [address] * (ABNORMAL) Pernicious Anemia [place] (08/22/2023 5:14 AM CDT) [facility] Vitamin B12 Assay, S 123(L) 180 - 914 ng/L 08/22/2023 12:19 PM CDT [facility] Comment: Low B12; Intrinsic Factor Blocking Antibody test was performed. Blood (Blood, Venous) 08/22/2023 5:14 AM CDT 08/22/2023 10:03 AM CDT Billy Segal APRN, C.N.P., D.N.P. LAB BLOOD NON ADD-ON [facility] [address] [place] [address] [facility] [address] [place] [address] * (ABNORMAL) Magnesium (08/22/2023 5:14 AM CDT) Magnesium, S 2.4(H) 1.7 - 2.3 mg/dL 08/22/2023 6:31 AM CDT DTL Blood (Blood, Venous) 08/22/2023 5:14 AM CDT 08/22/2023 6:06 AM CDT Billy Segal APRN, C.N.P., D.N.P. LAB BLOOD ADD-ON [facility] [address] [place] [address], [facility] [address] [place] [address] * (ABNORMAL) CBC with Differential, Blood (08/22/2023 5:14 AM CDT) Pathologist [facility] Hemoglobin 11.5(L) 13.2 - 16.6 g/dL 08/22/2023 [...] D.N.P. LAB BLOOD ADD-ON Performing Organization Address City/[facility] Co de Phone Number [facility] [address] [place] [address] * (ABNORMAL) Hemoglobin A1c (08/22/2023 5:14 AM [...] D.N.P. LAB BLOOD ADD-ON Performing Organization Address City/[facility]/ZIP Co de Phone Number [facility] 200 [place], [place] [id number] [place] [address] [place] [address] * Erythropoietin (EPO) (08/22/2023 5:08 AM CDT) Erythropoietin (EPO), S 7.5 2.6 - 18.5 mIU/mL 08/22/2023 12:01 PM CDT [facility] Blood (Blood, Venous) 08/22/2023 5:08 AM CDT 08/22/2023 10:39 AM CDT Radha Richards APRNNKory, D.N.P. LAB BLOOD ADD-ON Performing Organization Address City/[facility]/ZIP Co de Phone Number [facility] [address] [place] [address] [facility] [address] [place] [address] * (ABNORMAL) Glucose, POCT (08/21/2023 9:19 PM CDT) Glucose, POCT, B 154(H) 70 - 140 mg/dL 08/21/2023 9:31 PM CDT PCLX Site Capillary 08/21/2023 9:31 PM CDT PCLX Last Intake 3-4 hours 08/21/2023 9:31 PM CDT PCLX Blood 08/21/2023 9:19 PM CDT 08/21/2023 9:31 PM CDT Unknown Provider LAB POCT ORDERABLES- MANUAL Performing Organization Address City/[facility] Co de Phone Number POC [facility] [address] [place] [address], [facility] PCLX [facility] POC [address] [place] [address] * (ABNORMAL) Glucose, POCT (08/21/2023 5:19 PM CDT) Glucose, POCT, B 177(H) 70 - 140 mg/dL 08/21/2023 5:21 PM CDT PCLX Site Capillary 08/21/2023 5:21 PM CDT PCLX Last Intake 3-4 hours 08/21/2023 5:21 PM CDT PCLX Blood 08/21/2023 5:19 PM CDT 08/21/2023 5:21 PM CDT Unknown Provider LAB POCT ORDERABLES- MANUAL POC [facility] [address] [place] [address], [facility] PCLX [facility] [place] POC [address] [place] [address] * CORONARY ANGIOGRAPHY (08/21/2023 3:16 PM CDT) [...] Diabetes Mellitus Type 2 (HCC) 4. Stroke ([facility]) 5. Hyperlipidemia On Treatment 6. 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(CKD) Stage 3b Glomerular Filtration Rate (GFR) 30 To 44 ([facility]) CORONARY DIAGNOSTIC SUMMARY Coronary artery dominance is [...] LAB POCT ORDERABLES- MANUAL Performing Organization Address City/[facility]/ZIP Co de Phone Number POC [facility] 200 [place] [address], [facility] PCLX [facility] POC [address] [place] [address] * Glucose, POCT (08/21/2023 6:56 AM CDT) Glucose, POCT, B 127 70 - 140 mg/dL 08/21/2023 7:06 AM CDT PCLX Site Capillary 08/21/2023 7:06 AM CDT PCLX Blood 08/21/2023 6:56 AM CDT 08/21/2023 7:06 AM CDT Unknown Provider LAB POCT ORDERABLES- MANUAL Performing Organization Address City/[facility] Co de Phone Number POC [facility] [address] [place] [address], [facility] PCLX [facility] POC [address] [place] [address] * Lipid Panel (08/21/2023 4:52 AM CDT) [...] Segal APRN, C.N.P., D.N.P. LAB BLOOD ADD-ON [facility] [place] [address], [facility] [address] * (ABNORMAL) Basic Metabolic Panel (08/21/2023 4:52 [...] D.N.P. LAB BLOOD ADD-ON [facility] [address] [place] [address], [facility] [place] [address] [place] [address] * (ABNORMAL) Cystatin C with Estimated GFR [...] Emilia.N.P. LAB BLOOD ADD-ON [facility] [address] [place] [address], [facility] DTL [facility] 200 [place] [address] * Glucose, POCT (08/20/2023 9:17 PM CDT) Glucose, POCT, B 130 70 - 140 mg/dL 08/20/2023 9:19 PM CDT PCLX Site Capillary 08/20/2023 9:19 PM CDT PCLX Last Intake 3-4 hours 08/20/2023 9:19 PM CDT PCLX Blood 08/20/2023 9:17 PM CDT 08/20/2023 9:19 PM CDT Unknown Provider LAB POCT ORDERABLES- MANUAL POC [facility] [address] [place] [address], [facility] PCLX [facility] POC [address] [place] [address] * DX Panorex Teeth (08/20/2023 6:23 PM [...] Unknown Provider LAB POCT ORDERABLES- MANUAL POC [facility] [address] PCLX [facility] POC 200 [place] [address] * Dipstick, Urine (08/20/2023 3:26 PM CDT) [...] D.N.P. LAB URINE ORDERABLES Performing Organization Address City/[facility] Co de Phone Number [facility] 200 [place] [address] * pH, Urine (08/20/2023 3:26 PM CDT) pH, U 6.9 4.5 - 8.0 08/20/2023 4:2 4 PM CDT DT Urine 08/20/2023 3:26 PM CDT 08/20/2023 3:43 PM CDT Radha Richards APRNN.PJarrett, D.N.P. LAB URINE ORDERABLES Performing Organization Address City/[facility] Co de Phone Number [facility] 200 [place] [address] * Osmolality, Urine (08/20/2023 3:26 PM CDT) Osmolality, U 239 150 - 1150 mOsm/kg 08/20/2023 4:24 PM CDT DT Urine 08/20/2023 3:26 PM CDT 08/20/2023 3:43 PM CDT Cata Richards APRN.N.P., D.N.P. LAB URINE ORDERABLES Performing Organization Address City/[facility]/ZIP Co de Phone Number [facility] 200 [place] [address] * Microscopic Automated (08/20/2023 3:26 PM CDT) Microscopy Normal 08/20/2023 3:5 3 PM CDT DT Urine 08/20/2023 3:26 PM CDT 08/20/2023 3:43 PM CDT Radha Richards APRNNKory, D.N.P. LAB URINE ORDERABLES Performing Organization Address [facility] Co de Phone Number [facility] [address] [place] [address], [facility] 200 [place] [address] * Urinalysis with Microscopic: Urine, Midstream (08/20/2023 [...] D.N.P. LAB URINE ORDERABLES Performing Organization Address City/[facility]/ZIP Co de Phone Number [facility] [address] [place] [address], [facility] [address] [place] [address] * (ABNORMAL) Glucose, POCT (08/20/2023 11:55 AM CDT) Glucose, POCT, B 281(H) 70 - 140 mg/dL 08/20/2023 12:06 PM CDT PCLX Blood 08/20/2023 11:5 5 AM CDT 08/20/2023 12:06 PM CDT Unknown Provider LAB POCT ORDERABLES- MANUAL POC [facility] [address] [place] [address], [facility] PCLX [facility] [address] [place] [address] * Magnesium (08/20/2023 7:01 AM CDT) Magnesium, S 1.9 1.7 - 2.3 mg/dL 08/20/2023 8:09 AM CDT DTL Blood (Blood, Venous) 08/20/2023 7:01 AM CDT 08/20/2023 7:48 AM CDT Palomo Flores P.A.-C. LAB BLOOD ADD -ON Performing Organization Address City/[facility]/ZIP Co de Phone Number [facility] 200 [place] [address], [facility] [place] [address] [place] [address] * (ABNORMAL) Basic Metabolic Panel (08/20/2023 7:01 [...] BLOOD ADD -ON Performing Organization Address City/State/ZIP Nj de Phone Number [facility] 200 [place] [address], [place] [address] [address] * (ABNORMAL) Cystatin C with Estimated GFR [...] D.N.P. LAB BLOOD ADD-ON [facility] [address] [place] [address], [facility] DTL [facility] 200 [place] [address] * Glucose, POCT (08/20/2023 6:58 AM CDT) Glucose, POCT, B 107 70 - 140 mg/dL 08/20/2023 7:01 AM CDT PCLX Site Capillary 08/20/2023 7:01 AM CDT PCLX Blood 08/20/2023 6:58 AM CDT 08/20/2023 7:01 AM CDT Unknown Provider LAB POCT ORDERABLES- MANUAL POC [facility] [address] [place] [address], [facility] PCLX [facility] POC [address] [place] [address] * (ABNORMAL) Troponin T, 2h/6h, 5th Gen [...] 6:05 PM CDT Narrative [facility] - 08/19/2023 6:25 PM CDT Specimen Information: Specimen ID: [id number] Specimen Type: Blood Specimen Collection Start Date: 08/19/2023 ??6:00 PM Specimen Received Date: 08/19/2023 ??6:05 PM Specimen ID: [id number] Specimen Type: Blood Norman Mcdonough D.O. LAB BLOOD YAZAN KATHI Performing Organization Address [facility] Co de Phone Number [facility] [address] [place] [address] * (ABNORMAL) Troponin T, Baseline, 5th gen (08/19/2023 3:49 PM CDT) [facility] Troponin T, Baseline, 5th gen 18(H) <=15 ng/L 08/19/2023 4:16 PM CDT [facility] Blood (Blood, Venous) 08/19/2023 3:49 PM CDT 08/19/2023 3:56 PM CDT Norman Mcdonough D.O. LAB BLOOD YAZAN KATHI Performing Organization Address [facility] Co de Phone Number [facility] 200 [place] [address] * (ABNORMAL) CBC with Differential, Blood (08/19/2023 3:49 PM CDT) [facility] Hemoglobin 11.7(L) 13.2 - 16.6 g/dL 08/19/2023 [...] ADD-O N [facility] [address] [place] [address], [facility] STMA [facility] [address] [place] [address] [facility] [address] [place] [address] * (ABNORMAL) Basic Metabolic Panel (08/19/2023 3:49 [...] BLOOD ADD-O N [facility] [address] [place] [address], [facility] [address] [place] [address] * DX Chest AP or PA and [...] CDT) Ventricular Rate ECG/Min 89 BPM MUSE AZ Interval 130 ms MUSE QRSD Interval 78 ms MUSE QT Interval 358 ms MUSE QTC Interval 435 ms MUSE P [place] 40 degrees MUSE R [place] 36 degrees MUSE T Wave [place] 81 degrees MUSE 08/19/2023 3:24 PM CDT [...] intravenous, As needed, line care, Starting on [place] 08/19/23 at 1520, Peripheral Intravenous Catheter and Rapid Infusion Catheter, prior to blood sampling, post blood transfusion or post blood sampling sodium chloride 0.9 % injection 10 mL 10 mL, intravenous, As needed, line care, Starting on [place] 08/19/23 at 2154, Peripheral Intravenous Catheter and Rapid Infusion Catheter, prior to blood sampling, post blood transfusion or post blood sampling sodium chloride 0.9 % injection 3 mL 3 mL, intravenous, As needed, line care, Starting on [place] 08/19/23 at 1520, Prior to and following infusion and between multiple consecutive infusions: sodium chloride 0.9 % injection sodium chloride 0.9 % injection 3 mL 3 mL, intravenous, Every 12 hours scheduled, First dose on [place] 08/19/23 at 2100, Peripheral Intravenous Catheter and Rapid Infusion Catheter, when no infusion to maintain patency Given 08/22/2023 9: 55 AM CDT 3 mL Given 08/21/2023 9:26 PM CDT 3 mL Given 08/20/2023 11:04 AM CDT 3 mL sodium chloride 0.9 % injection 3 mL 3 mL, intravenous, As needed, line care, Starting on [place] 08/19/23 at 2154, Prior to and following [...] Provider, Automatic - Reason: Patient not available)1604 ([facility] Unhold - Provider: Transfer Provider, Automatic) 0806 (Given - Provider: Kleber Sharma RJarrettN.) aspirin tablet 325 mg (CANCELED) 325 mg, oral, Daily, First dose on Sun08/20/23 at 0900 0936 (Given - Provider: Kassie Ahumada M.S., M.A., R.N., [facility]) atorvastatin tablet 40 mg (LIPITOR) (CANCELED) 40 mg, oral, Daily at bedtime, First dose on Sun08/19/23 at 2200 2045 (Given - Provider: Pamela Jason R.N.) 1404 (JAN Hold - Provider: Transfer Provider, Automatic - Reason: Patient not available)1604 ([facility] Unhold - Provider: Transfer Provider, Automatic) atorvastatin [...] - Provider: Kassie Ahumada M.S., M.Keri., R.N., [facility]) 0802 (Given - Provider: Kleber Sharma R.N.)1404 (JAN Hold - Provider: Transfer Provider, Automatic - Reason: Patient not available)1604 (JAN Unhold - Provider: Transfer Provider, Automatic) 0806 (Given - Provider: Kleber Sharma R.N.) ferrous sulfate tablet 65 mg of iron 65 mg of iron, oral, Daily, First dose on Sun08/20/23 at 0900 0936 (Given - Provider: Kassie Ahumada M.S., MGibran., R.N., [facility]) 0802 (Given - Provider: Kleber Sharma [...] - Provider: [facility]ass[facility] M.S., Salome, [facility].N., [facility] 0802 (Given - Provider: Kleber Sharma R.N.)1404 (JAN Hold - Provider: Transfer Provider, Automatic - Reason: Patient not available)1604 ([facility] Unhold - Provider: Transfer Provider, Automatic) [...] - Provider: Kassie Ah[facility] M.S., M.A., [facility].N., [facility]) pantoprazole DR tablet 40 mg (PROTONIX) [...] - Provider: Kassie Ah[facility] M.S., M.A., R.N., [facility])1610 (Given - Provider: Yasmine Caba RJarrettNJarrett)204 (Given - Provider: Pamela Jason R.N.) 0802 (Given - Provider: Kleber Sharma R.N.)1404 (JAN Hold - Provider: Transfer Provider, Automatic - Reason: Patient not available)160 ([facility] Unhold - Provider: Transfer Provider, Automatic)161 (Given [...] - Provider: Kassie Ah[facility]ada M.S., M.A., R.N., [facility])2052 (Not Given - Provider: Pamela Jason R.N. - Reason: Other - Comment: Duplicate order) 0918 (Not Given - Provider: Kleber Sharma R.N. - Reason: Order parameters not met)1404 ([facility] Hold - Provider: Transfer Provider, Automatic - Reason: Patient not available)160 ([facility] Unhold - Provider: Transfer Provider, Automatic)2125 (Given - Provider: Reggie Robertson R.N.) 0955 (Given - Provider: Kleber Sharma R.N.) sodium chloride 0.9 % injection 3 mL 3 mL, intravenous, Every 12 hours scheduled, First dose on Sun08/20/23 at 0900, Peripheral Intravenous Catheter and Rapid Infusion Catheter, when no infusion to maintain patency 1103 (Given - Provider: Kassie Ah[facility]ada M.S., M.A., R.N., [facility]2052 (Given - Provider: Pamela Jason R.N.) 0917 (Given - Provider: Kleber Sharma R.N.)1404 (JAN Hold - Provider: Transfer Provider, Automatic - Reason: Patient not available)160 ([facility] Unhold - Provider: Transfer Provider, Automatic)2125 (Given - Provider: Reggie O Mayaba, R.N.) 0955 (Given - Provider: Kleber Sharma R.N.) tamsulosin 24 hr capsule 0.4 mg (FLOMAX) 0.4 mg, oral, Daily, First dose on 08/20/23 at 0900, Swallow whole. Do NOT crush, chew or open capsule. 0936 (Given - Provider: Kassie Ahumada M.S., M.A., R.N., [facility]) 0802 (Given - Provider: Kleber Sharma R.N.)1404 ([facility] Hold - Provider: Transfer Provider, Automatic - Reason: Patient not available)1604 ([facility] Unhold - Provider: Transfer Provider, Automatic) 0806 (Given - Provider: Kleber Sharma R.N.) PRN Medication Order 08/20/2023 08/21/2023 08/22/2023 acetaminophen tablet 500 mg (TYLENOL) 500 mg, oral, Every 6 hours PRN, mild pain or score 1-3 of 10, fever, Notify service prior to first administration for fever, Starting on 08/19/23 at 2157 1404 ([facility] Hold - Provider: Transfer Provider, Automatic - Reason: Patient not available)1604 ([facility] Unhold - Provider: Transfer Provider, Automatic) bisacodyL DR tablet 10 mg (DULCOLAX) 10 mg, oral, Daily PRN, constipation, Starting on 08/19/23 at 2157, PO route preferred. Constipation unrelieved by docusate sodium (COLACE) if ordered. If results needed within 2 hours give rectal suppository if ordered. Swallow whole. Do NOT crush, chew, or split tablet. 1404 ([facility] Hold - Provider: Transfer Provider, Automatic - Reason: Patient not available)1604 ([facility] Unhold - Provider: Transfer Provider, Automatic) bisacodyL suppository 10 mg (DULCOLAX) 10 mg, rectal, Daily PRN, constipation, Starting on 08/19/23 at 2157, PO route preferred. Constipation unrelieved by docusate sodium (COLACE) if ordered. If results needed within 2 hours - give rectal suppository. 1404 ([facility] Hold - Provider: Transfer Provider, Automatic - Reason: Patient not available)1604 ([facility] Unhold - Provider: Transfer Provider, Automatic) [...] blood transfusion or post blood sampling 1404 ([facility] Hold - Provider: Transfer Provider, Automatic - Reason: Patient not available)1604 ([facility] Unhold - Provider: Transfer Provider, Automatic) sodium chloride 0.9 % injection 10 mL 10 mL, intravenous, As needed, line care, Starting on 08/19/23 at 2154, Peripheral Intravenous Catheter and Rapid Infusion Catheter, prior to blood sampling, post blood transfusion or post blood sampling 1404 ([facility] Hold - Provider: Transfer Provider, Automatic - Reason: Patient not available)1604 ([facility] Unhold - Provider: Transfer Provider, Automatic) sodium chloride 0.9 % injection 3 mL 3 mL, intravenous, As needed, line care, Starting on 08/19/23 at 1520, Prior to and following infusion and between multiple consecutive infusions: sodium chloride 0.9 % injection 1404 ([facility] Hold - Provider: Transfer Provider, Automatic - Reason: Patient not available)1604 ([facility] Unhold - Provider: Transfer Provider, Automatic) sodium chloride 0.9 % injection 3 mL 3 mL, intravenous, As needed, line care, Starting on 08/19/23 at 2154, Prior to and following infusion and between multiple consecutive infusions: sodium chloride 0.9 % injection 1404 ([facility] Hold - Provider: Transfer Provider, Automatic - Reason: Patient not available)1604 ([facility] Unhold - Provider: Transfer Provider, Automatic) documented in this encounter Additional Health Concerns Assessment Noted Time PHQ-9 Depression Total Score: 0 08/20/20 23 12:00 PM CDT documented as of this encounter Care Teams Annual Giving Manager Relationship Specialty Start Date End Date Elsewhere, Pcp PCP - General Internal Medicine 08/19/23 09/27/23 documented as of this encounter
--- OUTSIDE RECORDS SUMMARY | 2023-12-07 11:31 | XMS_ITS | Encounter Summary ---
Author Name Unknown Organization [facility] Address [address] [place] [address] Care Team Providers Care Black Leather Buffer Name Role Phone Elsewhere, Pcp Primary Care Provider Unavailabl e Reason for Visit * Reason Onset Date Comments Pre-visit Testing Orders 08/20/2023 Encounter Details Date Type Department Care Team (Latest Contact Info) Description 08/20/2023 Clinical Communication Department of Cardiovascular Medicine in [place], [place] [address] [place] [address] Billy Segal APRN, C.N.P., D.N.P. 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 [address] [place] [phone] 01/01/2024 3:45 PM DESIZING MACHINE OPERATOR HEAD END Comprehensive Visit Division of Hematology in [address] [phone] Billy Segal APRN, C.N.P., D.N.P. [address] [place] [phone] documented as of this encounter Visit Diagnoses Diagnosis Stenosis Aortic Valve Acquired- Primary documented in this encounter Additional Health Concerns Assessment Noted Time PHQ-9 Depression Total Score: 0 08/20/20 12:00 PM CDT documented as of this encounter Care Teams Black Leather Buffer Relationship Specialty Start Date End Date Elsewhere, Pcp PCP - General Internal Medicine 08/19/23 09/27/23 documented as of this encounter
--- OUTSIDE RECORDS SUMMARY | 2023-12-07 11:31 | XMS_ITS | Encounter Summary ---
Author Name Unknown Organization [facility] Address [address] [place] [address] Care Team Providers Care Rigging Slinger Name Role Phone Unavailable Primary Care Provider Unavailabl e Reason for Referral * Outpatient (Routine) - Closed Specialty Diagnoses / Procedures Referred By Sebas gimenez Referred To Contact Diagnoses Stenosis Aortic Valve Acquired Procedures Echo Transthoracic (TTE) Cresencio Medina M.B.B.S. [address] [place] [address] [facility] Referral ID Status Reason Start Date Expiration Date Visits Re quested Visits Authorized [id number] Closed 08/14/2023 08/13/2024 1 1 Reason for Visit * Auth/Cert (Routine) Specialty Diagnoses / Procedures Referred By Sebas gimenez Referred To Contact Diagnoses Stenosis Mitral And Aortic Stenosis Pain Chest Procedures ER Referral ID Status Reason Start Date Expiration Date Visits Re quested Visits Authorized [id number] 1 1 Encounter Details Date Type Department Care Team (Latest Contact Info) Description 08/17/2023 2:53 PM CDT - 08/17/2023 11:59 PM CDT Hospital Encounter Department of Cardiovascular Diseases in [place], [place] [address] [place] [address] Cresencio Medina, M.B.B.S. [address] [place] [address] Stenosis Aortic Valve Acquired Discharge [...] (Latest Contact Info) Description 12/21/2023 10:15 AM ASTHMA EDUCATOR Clinical Communication Virtual Review in [place], [place] [address] [place] [address] 12/24/2023 2:00 PM ASTHMA EDUCATOR Comprehensive Visit Department of Cardiovascular Medicine in [place], [place] [address] [place] [phone] Gudelia Soto M.D. [address] [place] [phone] 01/01/2024 3:45 PM ASTHMA EDUCATOR Comprehensive Visit Division of Hematology in [place], [place] [address] [place] [address] Billy Segal APRN, C.N.P., D.N.P. [address] [place] [address] documented as of this encounter Procedures Procedure [...] 4:33 PM CDT There are no previous [facility] echocardiograms available for comparison. LEFT VENTRICLE:Normal left [...] valve regurgitation. Findings There are no previous [facility] echocardiograms available forcomparison. LEFT VENTRICLE:Normal left ventricular chamber size. Abnormal leftventricular geometry with concentric remodeling (increased wall thicknessto cavity ratio). Calculated 2-D linear left ventricular ejection [id number] No regional wall motion abnormalities. Grade 1/3 [...]
== END 2023-12-06 11:46 | disposition home or self-care (01) ==
LOC: NFLDREF 12-07 11:16
PROVIDERS: PCP Internal Medicine; Referring Provider Internal Medicine; Visit Provider Internal Medicine Nephrology
DX: I10 Essential (primary) hypertension (principal)
CPT/HCPCS: 80048

== ENCOUNTER 2023-12-28 13:11 | Outpatient (REF) | payer MEDICARE, SELFPAY ==
--- OUTSIDE RECORDS SUMMARY | 2023-12-30 07:20 | XMS_ITS | Clinical Summary ---
Author Name Unknown Organization [facility] Address [address] [place] [address] Care Team Providers Care Reading Professor Name Role Phone Kylah Crum M.D. Primary Care Provider Source Comments Patient records contain information from all sites at [facility]. For routine questions regarding patient records, call [phone] during business hours, M-F 8:00 AM - 5:00 PM Central Time. Record requests for emergency care only can be directed to [phone] at any time[address] Allergies No known active allergies Medications [...] hours as needed for pain. 0 Active aspirin 81 mg chewable tablet Chew 1 tablet (81 mg total) daily. 0 09/26/2023 4 Active atorvastatin (LIPITOR) 80 mg tablet Take 1 tablet (80 mg total) by mouth at bedtime. 0 09/26/2023 4 Active finasteride (PROSCAR) 5 mg tablet Take 1 tablet (5 mg total) by mouth daily. 0 09/26/2023 Active rOPINIRole (REQUIP) 0.5 mg tablet Take 1 tablet (0.5 mg total) by mouth 3 (three) times a day. 0 09/26/2023 Active tamsulosin (FLOMAX) 0.4 mg 24 hr capsule Take 1 capsule (0.4 mg total) by mouth at bedtime. 0 09/26/2023 Active metoprolol tartrate (LOPRESSOR) 25 mg tablet Take 1 tablet (25 mg total) by mouth 2 (two) times a day. 60 tablet 0 09/26/2023 Active glipiZIDE (GLUCOTROL XL) 2.5 mg 24 hr tablet Take 1 tablet (2.5 mg total) by mouth daily with breakfast. 30 tablet 0 09/26/2023 Active warfarin (JANTOVEN) 1 mg tabletIndicatio ns:Prosthesis Aortic Valve Take per Anticoagulation Clinic 180 tablet 3 10/31/2023 Active torsemide (DEMADEX) 20 mg tablet Take 1 tablet (20 mg total) by mouth daily. 0 11/29/2023 Active metoprolol succinate (TOPROL-XL) 50 mg 24 hr tablet Take 1 tablet by mouth daily. 0 12/20/2023 Active spironolactone (ALDACTONE) 25 mg tablet Take 1 tablet by mouth daily. 0 11/14/2023 Active colchicine (COLCRYS) 0.6 mg tablet Take 0.5 tablets (0.3 mg total) by mouth daily. 30 tablet 2 12/24/2023 Active predniSONE (DELTASONE) 10 mg tablet Take 2 tablets (20 mg total) by mouth daily for 7 days, THEN 1 tablet (10 mg total) daily for 7 days, THEN 1 tablet (10 mg total) daily for 7 days, THEN 1 tablet (10 mg total) daily for 7 days, THEN 1 tablet (10 mg total) daily for 7 days. To be taken in conjunction with 5 mg tablets. Take 19ywo6rwwh,17.5mgx7d ays, 41frr6svul,12.5mgx7d ays,77kiq9nzue.. 42 tablet 0 12/26/2023 Active predniSONE (DELTASONE) 5 mg tablet Take 1.5 tablets (7.5 mg total) by mouth daily for 7 days, THEN 1 tablet (5 mg total) daily for 7 days, THEN 0.5 tablets (2.5 mg total) daily for 7 days. To be taken in conjunction with 10 mg tablets. Take 01gvr6qoyy,17.5mgx7d ays,72e3khog,12.5x7d ays,12ogt8uais. 21 tablet 0 12/26/2023 4 Active amiodarone (PACERONE) 200 mg tablet Take 1 tablet (200 mg total) by mouth 2 (two) times a day for 2 days, THEN 1 tablet (200 mg total) daily. 34 tablet 0 09/26/2023 4 Discontinu ed(Therapy completed) furosemide (LASIX) 20 mg tablet Take 1 tablet (20 mg total) by mouth daily for 10 days. 10 tablet 0 10/12/2023 4 Discontinu ed(Alterna te therapy) furosemide (LASIX) 40 mg tablet Take 1 tablet (40 mg total) by mouth daily for 10 days. 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 12/26/2023 Clinical Communication Department of Cardiovascular Medicine in [place], [place] [address] [place] [phone] Eneida Loya, R.N. 12/26/2023 Clinical Communication Department of Cardiovascular Medicine in [place], [place] [address] [place] [phone] Eneida Loya, R.N. 12/25/2023 2:20 PM [facility] - 12/25/2023 11:59 PM [facility] [employer] [facility] Hospital Encounter Department of Radiology, [facility], in [place], [place] [address] [place] [phone] Gudelia Soto M.D. Pericarditis Constrictive (HCC) Discharge Disposition: Home or Self Care 12/24/2023 2:00 PM [facility] [employer] [facility] Comprehensive Visit Department of Cardiovascular Medicine in [place], [place] [address] [place] [phone] Gudelia Soto M.D. Pericarditis Constrictive (HCC) (Primary Dx); Stenosis Aortic Valve Acquired; Atrial Fibrillation Paroxysmal (HCC); Coronary Artery Disease Without Angina Pectoris; Cardiac Surgery Status Post; Fdc (Current) Anticoagulant Treatment; Bypass Coronary Artery Graft Status Post; Effusion Pleural; Diabetes Mellitus Type 2 (HCC); Benign Prostatic Hyperplasia Without Obstruction; Stroke Cerebrovascular Accident Personal History 12/24/2023 10:15 AM [facility] [employer] [facility] - 12/24/2023 11:59 PM [facility] [employer] Hospital Encounter Department of Radiology, [facility], in [place], [place] [address] [place] [address] Gudelia Soto M.D. Stenosis Aortic Valve Acquired Discharge Disposition: Home or Self Care 12/24/2023 9:07 AM [facility] [employer] [facility] - 12/24/2023 10:14 AM [facility] Hospital Encounter Department of Laboratory Medicine and Pathology, [facility] in [place], [place] [address] [place] [address] Gudelia Soto M.D. Stenosis Aortic Valve Acquired Discharge Disposition: Home or Self Care 12/24/2023 7:30 AM [facility] [facility] - 12/24/2023 9:06 AM [facility] Hospital Encounter Department of Cardiovascular Diseases in [place], [place] [address] [place] [address] Gudelia Soto M.D. Stenosis Aortic Valve Acquired Discharge Disposition: Home or Self Care 12/14/2023 Clinical Communication Department of Cardiovascular Medicine in [place], [place] [address] [place] [address] Gudelia Soto M.D. Schedule Echo 12/24 (NEW) 11/30/2023 Orders Only Department of Cardiovascular Medicine in [place], [place] [address] [place] [address] Gudelia Soto M.D. Stenosis Aortic Valve Acquired (Primary Dx) 11/28/2023 Clinical Communication Department of Cardiovascular Medicine in [place], [place] [address] [place] [address] Bethany Downs R.N. Triage 11/27/2023 2:00 PM [facility] [employer] External Outreach Division of Nephrology and Hypertension in [place], [place] [address] [place] [address] Mare Arauz M.D., Ph.D. Congestive Heart Failure (HCC) (Primary Dx) 11/27/2023 Orders Only Division of Nephrology and Hypertension in [place], [place] [address] [place] [address] Mare Arauz M.D., Ph.D. Stenosis Aortic Valve Acquired (Primary Dx) 11/27/2023 Clinical Communication Division of Nephrology and Hypertension in [place], [place] [address] [place] [address] Mare Arauz M.D., Ph.D. Med Question (Priority 2) 11/22/2023 Clinical Communication Department of Anticoagulation in [place], [place] [address] [place] [phone] Edna Gamble R.N. Anticoagulation 11/19/2023 Clinical Communication Department of Anticoagulation in [place], [place] [address] [place] [phone] Lexi Carson Anticoagulation (Unable to reach) 11/08/2023 Clinical Communication Division of Nephrology and Hypertension in [place], [place] [address] [place] [phone] Mare Arauz M.D., Ph.D. 11/02/2023 3:00 PM [facility] [employer] Anticoagulation Visit Department of Anticoagulation in [place], [place] [address] [place] [phone] Kylah Crum M.D. Diabetes Mellitus Type 2 (HCC) (Primary Dx); Coronary Arterial Bypass Graft Status Post Personal History; Cardiac Surgery Status Post; Bypass Coronary Artery Graft Status Post; Prosthesis Aortic Valve; Fdc (Current) Anticoagulant Treatment; Monitoring For Therapeutic Drug Therapy 11/02/2023 12:33 PM [facility] [employer] - 11/02/2023 11:59 PM [facility] [employer] Hospital Encounter Department of Laboratory Medicine in [place], [place] [address] [place] [phone] Kylah Crum M.D. Coronary Arterial Bypass Graft Status Post Personal History; Cardiac Surgery Status Post; Bypass Coronary Artery Graft Status Post; Prosthesis Aortic Valve; Diabetes Mellitus Type 2 (HCC) Discharge Disposition: Home or Self Care 11/01/2023 Clinical Communication Department of Cardiovascular Medicine in [place], [place] [address] [place] [phone] Gudelia Soto M.D. 11/01/2023 Clinical Communication Department of Cardiovascular Surgery in [place], [place] [address] [place] [address] Sarah Miller M.D., M.P.H. Med Question (Refills or stopping medications) 10/31/2023 8:00 AM [facility] [employer] [facility] External Outreach Division of Nephrology and Hypertension in [place], [place] [address] [place] [phone] Mare Arauz M.D., Ph.D. Chronic Kidney Disease (CKD), Stage 3b Glomerular Filtration Rate (GFR) 30 To 44 (HCC) (Primary Dx); Hypertension Essential Primary 10/31/2023 Clinical Communication Department of Anticoagulation in [place], [place] [address] [place] [phone] Roberto Kwok, M.P.H., R.N. 10/29/2023 4:10 PM [facility] [employer] Anticoagulation Visit Department of Anticoagulation in [place], [place] [address] [place] [phone] Kylah Crum M.D. Diabetes Mellitus Type 2 (HCC) (Primary Dx); Coronary Arterial Bypass Graft Status Post Personal History; Cardiac Surgery Status Post; Bypass Coronary Artery Graft Status Post; Prosthesis Aortic Valve; Fdc (Current) Anticoagulant Treatment; Monitoring For Therapeutic Drug Therapy 10/29/2023 12:42 PM [facility] [facility] - 10/29/2023 11:59 PM [facility] Hospital Encounter Department of Laboratory Medicine in [address] [phone] Kylah Crum M.D. Coronary Arterial Bypass Graft Status Post Personal History; Cardiac Surgery Status Post; Bypass Coronary Artery Graft Status Post; Prosthesis Aortic Valve; Diabetes Mellitus Type 2 (HCC); Fdc (Current) Anticoagulant Treatment; Monitoring For Therapeutic Drug Therapy Discharge Disposition: Home or Self Care 10/26/2023 11:30 AM [facility] [facility] Anticoagulation Visit Department of Anticoagulation in [place], [place] [address] [place] [phone] Kylah Crum M.D. Diabetes Mellitus Type 2 (HCC) (Primary Dx); Coronary Arterial Bypass Graft Status Post Personal History; Cardiac Surgery Status Post; Bypass Coronary Artery Graft Status Post; Prosthesis Aortic Valve; Fdc (Current) Anticoagulant Treatment; Monitoring For Therapeutic Drug Therapy 10/26/2023 10:50 AM [facility] [facility] [employer] - 10/26/2023 11:59 PM [facility] [facility] Hospital Encounter Department of Laboratory Medicine in [address] [phone] Kylah Crum M.D. Coronary Arterial Bypass Graft Status Post Personal History; Cardiac Surgery Status Post; Bypass Coronary Artery Graft Status Post; Prosthesis Aortic Valve; Fdc (Current) Anticoagulant Treatment; Monitoring For Therapeutic Drug Therapy Discharge Disposition: Home or Self Care 10/22/2023 2:00 PM [facility] Anticoagulation Visit Department of Anticoagulation in [place], [place] [address] [place] [phone] Kylah Crum M.D. 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 Coronary Arterial Bypass Graft Status Post Personal History; Cardiac Surgery Status Post; Bypass Coronary Artery Graft Status Post; Prosthesis Aortic Valve; Fdc (Current) Anticoagulant Treatment; Monitoring For Therapeutic Drug Therapy Discharge Disposition: Home or Self Care 10/17/2023 2:00 PM [facility] Anticoagulation Visit Department of Anticoagulation in [place], [place] [address] [place] [phone] Kylah Crum M.D. 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 Coronary Arterial Bypass Graft Status Post Personal History; Cardiac Surgery Status Post; Bypass Coronary Artery Graft Status Post; Prosthesis Aortic Valve; Fdc (Current) Anticoagulant Treatment; Monitoring For Therapeutic Drug Therapy Discharge Disposition: Home or Self Care 10/16/2023 Orders Only [facility] Kylah Crum M.D. Screening Abdominal Aortic Aneurysm; Diabetes Mellitus Type 2 (HCC) 10/15/2023 Episode Changes Department of Cardiovascular Medicine in [place], [place] [address] [place] [phone] Cony Calzada CEP 10/12/2023 11:30 AM [facility] [employer] Anticoagulation Visit Department of Anticoagulation in [place], [place] [address] [place] [phone] Kylah Crum M.D. 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 Coronary Arterial Bypass Graft Status Post Personal History; Cardiac Surgery Status Post; Bypass Coronary Artery Graft Status Post; Prosthesis Aortic Valve; Fdc (Current) Anticoagulant Treatment; Monitoring For Therapeutic Drug Therapy Discharge Disposition: Home or Self Care 10/05/2023 1:00 PM [facility] [facility] Virtual Visit Department of Cardiovascular Surgery in [address] [phone] Mariama Monk APRN, C.N.PJarrett Cardiac Surgery Status Post (Primary Dx); Coronary Arterial Bypass Graft Status Post Personal History; Prosthesis Aortic Valve; Fdc (Current) Anticoagulant Treatment 10/05/2023 11:00 AM [facility] [facility] Anticoagulation Visit Department of Anticoagulation in [place], [place] [address] [place] [phone] Kylah Crum M.D. Fdc (Current) Anticoagulant Treatment (Primary Dx); Coronary Arterial Bypass Graft Status Post Personal History; Cardiac Surgery Status Post; Bypass Coronary Artery Graft Status Post; Prosthesis Aortic Valve; Monitoring For Therapeutic Drug Therapy 10/05/2023 10:20 AM [facility] [employer] [facility] - 10/05/2023 11:59 PM [facility] [employer] Hospital Encounter Department of Laboratory Medicine in [address] [phone] Kylah Crum M.D. 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 Yaw, Elissa J, APRN, C.N.P. Cardiac Surgery Status Post (Primary Dx); Bypass Coronary Artery Graft Status Post; Prosthesis Aortic Valve; Coronary Arterial Bypass Graft Status Post Personal History; Coronary Artery Disease Without Angina Pectoris 10/02/2023 4:45 PM [facility] [facility] [employer] [facility] Internal E-Consult Division of Nephrology and Hypertension in [place], [place] [address] [place] [address] Pavan May M.D. Elevated Creatinine (Primary Dx); Failure Renal Acute (Acute Kidney Injury) (HCC) 10/02/2023 Clinical Communication Department of [facility], [facility], [place], [place] [address] [place] [address] Kylah Crum M.D. Results 10/01/2023 3:30 PM [facility] [employer] [facility] Anticoagulation Visit Department of Anticoagulation in [place], [place] [address] [place] [address] Kylah Crmu M.D. Fdc (Current) Anticoagulant Treatment (Primary Dx); Coronary Arterial Bypass Graft Status Post Personal History; Cardiac Surgery Status Post; Bypass Coronary Artery Graft Status Post; Prosthesis Aortic Valve; Monitoring For Therapeutic Drug Therapy 10/01/2023 11:51 AM [facility] [employer] [facility] - 10/01/2023 11:59 PM [facility] [employer] Hospital Encounter Department of Laboratory Medicine in [address] [phone] Kylah Crum M.D. Chronic Kidney Disease Stage 4 Glomerular Filtration Rate 15-29 (HCC) Discharge Disposition: Home or Self Care 10/01/2023 11:50 AM [facility] [facility] [employer] Hospital Encounter Department of Laboratory Medicine in [address] [phone] Kylah Crum M.D. Coronary Arterial Bypass Graft Status Post Personal History; Cardiac Surgery Status Post; Bypass Coronary Artery Graft Status Post; Prosthesis Aortic Valve Discharge Disposition: Home or Self Care 10/01/2023 11:00 AM [facility] [facility] [employer] Office Visit Department of [facility], [facility], in [address] [phone] Kylah Crum M.D. Chronic Kidney Disease Stage 4 Glomerular Filtration Rate 15-29 (HCC) (Primary Dx); Cardiac Surgery Status Post; Coronary Arterial Bypass Graft Status Post Personal History; Prosthesis Aortic Valve; Bypass Coronary Artery Graft Status Post; Diabetes Mellitus Type 2 (HCC); Atrial Fibrillation Unspecified (HCC); Hypertension And Chronic Kidney Disease Stage 1 To 4; Hyperlipidemia; Anemia Iron Deficiency 10/01/2023 Clinical Communication Department of Anticoagulation in [place], [place] [address] [place] [address] Ralf Peralta R.N. Anticoagulation (CCM enrollment) 10/01/2023 Clinical Communication Department of Anticoagulation in [place], [place] [address] [place] [address] Nidia Kuhn Anticoagulation (New enrollment) from Last 3 Months Family History Medical History Relation Name Comments Alzheimer's disease Brother 1 No Known Problems Brother 2 Bicuspid aortic valve Daughter Heart disease Father Diabetes Maternal Grandfather Heart attack Maternal Grandfather age 60s Lymphoma Mother Carmen Prostate cancer Paternal Grandfather No Known Problems Sister AVR - Aortic valve replacement Son Bicuspid aortic valve Son Relation Name Status Comments Brother 1 Alive Brother 2 Alive Daughter Father Maternal Grandfather Mother Carmen Paternal Grandfather Sister Alive Son Social History [...] Sign Reading Time Taken Comments Blood Pressure 111/68 12/24/2023 1:40 PM [facility] [employer] [facility] Pulse 86 12/24/2023 1:40 PM [facility] [employer] [facility] Temperature 36.1 ??C (96.9 ??F) 10/01/2023 1 1:08 AM [facility] [employer] [facility] Respiratory Rate 20 10/01/2023 11:0 8 AM [facility] [employer] [facility] Oxygen Saturation 98% 10/01/2023 11: 08 AM [facility] [employer] [facility] Inhaled Oxygen Concentration - - Weight 85.2 kg (187 lb 13.3 oz) 12/25/2023 2:40 PM [facility] [employer] [facility] Height 169.5 cm (5' 6.73) 12/25/2023 2:40 PM CS T Body Mass Index 29.66 12/25/2023 2:40 PM [facility] [employer] Plan of Treatment Upcoming Encounters Date Type Department Care Team (Late st Contact Info) Description 01/04/2024 10:30 AM [facility] [facility] [employer] [facility] Comprehensive Visit Division of Hematology in [place], [place] [address] [place] [address] Brandy Real M.D., M.B.A. [address] [place] [address] Health Maintenance Due Date Last Done Comments [...] (#1) 2023 Depression Screening (Annual PHQ-2) 11/12/2023 Hemoglobin A1C 02/21/2024 08/22/2023 Visit: Chronic Disease, age 18+ 10/01/2024 , 10/01/2023 Creatinine Level (Kidney Fun ction Test) 12/24/2024 12/24/2023, 10/03/2023, 10/01/2023, Additional history exists Office Visit for Blood Press ure Check / Re-check 12/24/2024 12/24/2023 Potassium Level 12/24/2024 12/24/2023, 09/13, 10/01/2023, Additional history exists Sodium Level 12/24/2024 12/24/2023, 09/13, 10/01/2023, Additional history exists Lipid (Cholesterol) Screening 12/24/2028 12/24/2023, 08/21/2023 Colonoscopy 11/21/2032 11/21/2022, 11/12 (Performed elsewhere), 11/21/2022 Colorectal Cancer Screening 11/21/2032 Fall Risk Screen (Annual) Completed 12/24/2023 Medical Devices Implanted Type Area Accelerator Operator Device Identifier Shelf Expiration Date Model / Serial / Lot Vlv Aort Cnf [facility] 23 - [id number] - [id number] Implanted:Qty: 1 on 09/19/2023 by Sarah Miller M.D., M.P.H. at [facility] Cardiac Valve Prosthesis N/A: Aortic Valve Artivion (Prev. [employer]) 2028 ONXACE-2 3 / [id number] / Description:MRI conditional up to 3T, normal mode, per library cataloging technician. [email or web address].pdf AFK Collins Surg Tfln 1x6 - [id number] Implanted:Qty: 1 on 09/19/2023 by Sarah Miller M.D., M.P.H. at [facility] Hardware e.g. pins/screws/ro ds N/A: Chest Suncore [id number] / / Medtronic Linq-05/05/2019 Implanted:04/13 by Chet Badillo M.D., Ph.D. (Quantity not on file) Implantable Loop Recorder Chest Medtronic [id number] / [id number] / Description:MR Conditional 1 .5T and 3T - First level operating mode. - Jayro Abernathy 12/25/2023 Procedures Procedure Name Priority Date/Time Associated Diagnosis Comments MR CARDIAC WITHOUT AND WITH IV CONTRAST RAD - Routine (most inpatients and all outpatients) 12/25/2023 4:05 PM [facility] [employer] [facility] Pericarditis Constrictive (HCC) DX CHEST AP OR PA AND LATERAL 2 VIEWS RAD - Routine (most inpatients and all outpatients) 12/24/2023 10:42 AM [facility] [employer] Stenosis Aortic Valve Acquired ECG Routine 12/24/2023 10:12 AM [facility] [facility] [employer] Stenosis Aortic Valve Acquired C-REACTIVE PROTEIN (CRP), S/P Routine 12/24/2023 9:44 AM [facility] [facility] [employer] Pericarditis Constrictive (HCC) SODIUM, S/P Routine 12/24/2023 9:44 AM [facility] [facility] [employer] Stenosis Aortic Valve Acquired POTASSIUM, S/P Routine 12/24/2023 9:44 AM [facility] [facility] Stenosis Aortic Valve Acquired NT-PRO B-TYPE NATRIURETIC PEPTIDE (BNP), S Routine 12/24/2023 9:44 AM [facility] [facility] [employer] Stenosis Aortic Valve Acquired LIPID PANEL, S Routine 12/24/2023 9:44 AM [facility] [facility] Stenosis Aortic Valve Acquired GLUCOSE, FASTING, S/P Routine 12/24/2023 9:44 AM [facility] [facility] [employer] Stenosis Aortic Valve Acquired CREATININE WITH EGFR, S/P Routine 12/24/2023 9:44 AM [facility] [employer] Stenosis Aortic Valve Acquired CBC WITH DIFFERENTIAL, B Routine 12/24/2023 9:44 AM [facility] [employer] [facility] Stenosis Aortic Valve Acquired ALBUMIN, S/P Routine 12/24/2023 9:44 AM [facility] Stenosis Aortic Valve Acquired PROTHROMBIN TIME (PT), P Routine 12/24/2023 9:43 AM [facility] [employer] [facility] Stenosis Aortic Valve Acquired SEDIMENTATION RATE, B Routine 12/24/2023 9:39 AM [facility] [employer] [facility] Pericarditis Constrictive (HCC) (TTE) 2D LIMITED WITH COLOR AND DOPPLER Routine 12/24/2023 8:52 AM [facility] [employer] [facility] Stenosis Aortic Valve Acquired OUTSIDE DX CHEST Routine 11/11/2023 8:30 AM [facility] [employer] OUTSIDE DX CHEST Routine 11/08/2023 3:25 PM [facility] [employer] [facility] INR REFLEX, POCT, B Routine 11/02/2023 12:42 PM [facility] [employer] [facility] Coronary Arterial Bypass Graft Status Post Personal History Cardiac Surgery Status Post Bypass Coronary Artery Graft Status Post Prosthesis Aortic Valve Diabetes Mellitus Type 2 (HCC) OUTSIDE DX CHEST Routine 10/31/2023 9:00 AM [facility] [employer] [facility] INR REFLEX, POCT, B Routine 10/29/2023 12:50 PM [facility] [employer] [facility] Coronary Arterial Bypass Graft Status Post Personal History Cardiac Surgery Status Post Bypass Coronary Artery Graft Status Post Prosthesis Aortic Valve Diabetes Mellitus Type 2 (HCC) Fdc (Current) Anticoagulant Treatment Monitoring For Therapeutic Drug Therapy INR REFLEX, POCT, B Routine 10/26/2023 11:36 AM [facility] [employer] [facility] 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 History Cardiac Surgery Status Post Bypass Coronary Artery Graft Status Post Prosthesis Aortic Valve 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) Anticoagulant Treatment Monitoring For Therapeutic Drug Therapy INR REFLEX, POCT, B Routine 10/22/2023 11:32 AM [facility] [employer] [facility] 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 History Cardiac Surgery Status Post Bypass Coronary Artery Graft Status Post Prosthesis Aortic Valve Fdc (Current) Anticoagulant Treatment Monitoring For Therapeutic Drug Therapy INR REFLEX, POCT, B Routine 10/17/2023 11:22 AM [facility] [employer] [facility] 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 History Cardiac Surgery Status Post Bypass Coronary Artery Graft Status Post Prosthesis Aortic Valve Fdc (Current) Anticoagulant Treatment Monitoring For Therapeutic Drug Therapy INR REFLEX, POCT, B Routine 10/12/2023 11:03 AM [facility] [employer] [facility] 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 History Cardiac Surgery Status Post Bypass Coronary Artery Graft Status Post Prosthesis Aortic Valve Fdc (Current) Anticoagulant Treatment Monitoring For Therapeutic Drug Therapy INR REFLEX, POCT, B Routine 10/08/2023 12:52 PM [facility] [employer] [facility] 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 History Cardiac Surgery Status Post Bypass Coronary Artery Graft Status Post Prosthesis Aortic Valve 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) Anticoagulant Treatment Monitoring For Therapeutic Drug Therapy INR REFLEX, POCT, B Routine 10/05/2023 10:35 AM [facility] [employer] [facility] 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 History Cardiac Surgery Status Post Bypass Coronary Artery Graft Status Post Prosthesis Aortic Valve Fdc (Current) Anticoagulant Treatment Monitoring For Therapeutic Drug Therapy INR REFLEX, POCT, B Routine 10/01/2023 12:02 PM [facility] [employer] [facility] Coronary Arterial Bypass Graft Status Post Personal History Cardiac Surgery Status Post Bypass Coronary Artery Graft Status Post Prosthesis Aortic Valve BASIC METABOLIC PANEL, S/P Routine 10/01/2023 12:02 PM [facility] [employer] [facility] Chronic Kidney Disease Stage 4 Glomerular Filtration Rate 15-29 (HCC) from Last 3 Months Results * MR Cardiac without and with IV Contrast (12/25/2023 4:05 PM [facility] [employer] [facility]) Anatomical Region Laterality Modality Cardiac, Cardiovascular RST LOS, Thoracic ARZ LOS, Cardiovascular FLA LOS N/A Magnetic Resonance Impressions 12/25/2023 5:08 PM [facility] [employer] [facility] 1. 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 2. ??Small fibrinous loculated pericardial effusion, predominantly along the lateral and inferior aspects of the left ventricle. 3. ??Normal biventricular chamber size and function. 4. ??Large bilateral pleural effusions. Small amount of abdominal ascites. Narrative 12/25/2023 5:08 PM [facility] EXAM: ??MR CARDIAC WITHOUT AND WITH IV CONTRAST COMPARISON: ??Transthoracic echocardiogram dated 12/24/2023 FINDINGS: ?? PERICARDIUM: Thickened pericardium (measuring up to 5 mm). Small, predominantly loculated, likely fibrinous pericardial effusion along the lateral and inferior aspects of the left ventricle. T2-weighted images were limited due to artifact but there appears to be some pericardial edema, specifically at the mid to apical levels (series 9, image 3). Pericardial enhancement of the visceral and parietal pericardium (split pericardial sign with the loculated pericardial effusion between the 2 layers of the pericardium), predominantly involving the inferior, lateral, and anterior portions of the pericardium (series 29). LEFT VENTRICLE: Small left ventricular size. Left ventricular ejection fraction = 65%. Abnormal septal motion due to postsurgical status. No regional wall motion abnormalities. Free breathing cine sequences show evidence of increased ventricular interdependence (respirophasic septal shift is present). Normal myocardial nulling kinetics. Mild mid-myocardial late gadolinium enhancement of the inferior RV insertion points (series 28, image 14-15). RIGHT VENTRICLE: Normal right ventricular chamber size and function. Right ventricular ejection fraction = 48%. ATRIA: Enlarged left atrium. Normal right atrial chamber size. INFERIOR VENA CAVA: Dilated inferior vena cava. ADDITIONAL FINDINGS: Large bilateral pleural effusions with associated atelectasis. Median sternotomy with sternal wires. Mechanical aortic valve prosthesis with trivial prosthetic and prosthetic regurgitation. Small amount of ascites about the liver. MEASUREMENTS: Patient weight: 85.2 kg Patient height: 169.5 cm BSA: 2 m2 Series 14: LEFT VENTRICLE: LV End Diastolic Volume = 96mL; Index = 48mL/m2 (normal = 55-115) LV End Systolic Volume = 34mL; Index = 17mL/m2 (normal = 20-52) LV Stroke Volume = 62mL; Index = 31mL/m2 (normal = 29-69) LV Ejection Fraction = 65% (normal = 48-68) LV End Diastolic Mass = 74g; Index = 37g/m2 (normal = 35-71) Series 14: RIGHT VENTRICLE: RV End Diastolic Volume = 130mL; Index = 65mL/m2 (normal = 59-127) RV End Systolic Volume = 68mL; Index = 34mL/m2 (normal = 21-65) RV Stroke Volume = 62mL; Index = 31mL/m2 (normal = 32-68) RV Ejection Fraction = 48% (normal = 42-66) Procedure Note Frankie Amezquita M.D., Ph.D. - 12/25/2023 EXAM: MR CARDIAC WITHOUT AND WITH IV CONTRAST COMPARISON: Transthoracic echocardiogram dated 12/24/2023 FINDINGS: PERICARDIUM: Thickened pericardium (measuring up to 5 mm). Small, predominantlyloculated, likely fibrinous pericardial effusion along the lateral andinferior aspects of the left ventricle. T2-weighted images were limiteddue to artifact but there appears to be some pericardial edema, specifically at the mid to apical levels (series 9,image 3). Pericardial enhancement of the visceral and parietal pericardium(split pericardial sign with the loculated pericardial effusion betweenthe 2 layers of the pericardium), predominantly involving the inferior, lateral, and anterior portions ofthe pericardium (series 29). LEFT VENTRICLE: Small left ventricular size. Left ventricular ejection fraction = 65%.Abnormal septal motion due to postsurgical status. No regional wall motionabnormalities. Free breathing cine sequences show evidence of increasedventricular interdependence (respirophasic septal shift is present). Normal myocardial nulling kinetics. Mild mid-myocardial late gadoliniumenhancement of the inferior RV insertion points (series 28, [id number]). RIGHT VENTRICLE: Normal right ventricular chamber size and function. Right ventricularejection fraction = 48%. ATRIA: Enlarged left atrium. Normal right atrial chamber size. INFERIOR VENA CAVA: Dilated inferior vena cava. ADDITIONAL FINDINGS: Large bilateral pleural effusions with associated atelectasis. Mediansternotomy with sternal wires. Mechanical aortic valve prosthesis withtrivial prosthetic and prosthetic regurgitation. Small amount of ascitesabout the liver. MEASUREMENTS: Patient weight: 85.2 kg Patient height: 169.5 cm BSA: 2 m2 Series 14: LEFT VENTRICLE: LV End Diastolic Volume = 96mL; Index = 48mL/m2 (normal = 55-115) LV End Systolic Volume = 34mL; Index = 17mL/m2 (normal = 20-52) LV Stroke Volume = 62mL; Index = 31mL/m2 (normal = 29-69) LV Ejection Fraction = 65% (normal = 48-68) LV End Diastolic Mass = 74g; Index = 37g/m2 (normal = 35-71) Series 14: RIGHT VENTRICLE: RV End Diastolic Volume = 130mL; Index = 65mL/m2 (normal = 59-127) RV End Systolic Volume = 68mL; Index = 34mL/m2 (normal = 21-65) RV Stroke Volume = 62mL; Index = 31mL/m2 (normal = 32-68) RV Ejection Fraction = 48% (normal = 42-66) IMPRESSION: 1. 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 2. Small fibrinous loculated pericardial effusion, predominantly alongthe lateral and inferior aspects of the left ventricle. 3. Normal biventricular chamber size and function. 4. Large bilateral pleural effusions. Small amount of abdominal ascites. Gudelia SHELTON MRI PROCEDURES * DX Chest AP or PA and Lateral 2 Views (12/24/2023 10:42 AM [facility] [employer] [facility]) Anatomical Region Laterality Modality Chest, Thoracic RST LOS, Tho racic ARZ LOS, Thoracic FLA LOS N/A Digital Radiography Impressions 12/24/2023 12:00 PM [facility] [employer] [facility] Small bilateral pleural effusions are decreased. Improved aeration of the left lung base with decreased previous probable subsegmental atelectasis. No new consolidation. No pneumothorax. Cardiac silhouette is mildly enlarged, unchanged. Prosthetic aortic valve. Intact sternotomy wires. Loop recorder in soft tissues of the anterior chest wall. Narrative 12/24/2023 12:00 PM [facility] EXAM: ??DX CHEST AP OR PA AND LATERAL 2 VIEWS CLINICAL HISTORY: Aortic valve replacement, CABG x 1 on 09/19/2023. COMPARISON: Outside Chest radiograph 11/11/2023. Procedure Note Winnie Peace M.D. - 12/24/2023 EXAM: DX CHEST AP OR PA AND LATERAL 2 VIEWS CLINICAL HISTORY: Aortic valve replacement, CABG x 1 on 09/19/2023. COMPARISON: Outside Chest radiograph 11/11/2023. IMPRESSION: Small bilateral pleural effusions are decreased. Improved aeration of theleft lung base with decreased previous probable subsegmental atelectasis.No new consolidation. No pneumothorax. Cardiac silhouette is mildlyenlarged, unchanged. Prosthetic aortic valve. Intact sternotomy wires. Loop recorder in softtissues of the anterior chest wall. Gudelia Soto M.D. IMG DIAGNOSTIC IMAGI NG PROCEDURES * ECG 12 Lead (12/24/2023 10:12 AM [facility] [employer] [facility]) Ventricular Rate ECG/Min 83 BPM MUSE NE Interval 138 ms MUSE QRSD Interval 76 ms MUSE QT Interval 400 ms MUSE QTC Interval 470 ms MUSE P [place] 55 degrees MUSE R [place] 61 degrees MUSE T Wave [place] 49 degrees MUSE 12/24/2023 10:1 2 AM [facility] 12/24/2023 10:21 AM [facility] [employer] [facility] Impressions MUSE - 12/24/2023 10:21 AM [facility] [employer] [facility] Poor data quality Normal sinus rhythm Low voltage QRS in limb leads Nonspecific ST and T wave abnormality When compared with ECG of 25-SEP-2023 04:55, No significant change Reviewed by MARIELA Mathews Narrative Procedure Note Joe Kumar Jr., M.D. - 12/24/2023 IMPRESSION: Poor data quality Normal sinus rhythm Low voltage QRS in limb leads Nonspecific ST and T wave abnormality When compared with ECG of 25-SEP-2023 04:55, No significant change Reviewed by MARIELA Mathews Gudelia Soto M.D. ECG ORDERABLES MUSE NA * Lipid Panel (12/24/2023 9:44 AM [facility] [employer] [facility]) Triglycerides 68 mg/dL 12/24/2023 1:00 PM [facility] DTL Comment: ----REFERENCE VALUE---- Normal: <150 mg/dL Borderline High: 150-199 mg/dL High: 200-499 mg/dL Very High: > or =500 mg/dL Cholesterol, Total 107 mg/dL 2023 1:00 PM [facility] [employer] [facility] DTL Comment: ----REFERENCE VALUE---- Desirable: < 200 mg/dL Borderline High: 200 - 239 mg/dL High: > or = 240 mg/dL Cholesterol, LDL, Calculated 50 mg/dL 12/24/2023 1:00 PM [facility] [employer] [facility] DTL Comment: ----REFERENCE VALUE---- Desirable: <100 mg/dL Above Desirable: 100-129 mg/dL Borderline High: 130-159 mg/dL High: 160-189 mg/dL Very High: >=190 mg/dL ----ADDITIONAL INFORMATION---- LDL cholesterol calculated using the Iglesias/NIH equation. Cholesterol, HDL, S 42 >=40 mg/dL 12/24/2023 1:00 PM [facility] [employer] [facility] DTL Cholesterol, Non-HDL, Calculated 65 mg/dL 12/24/2023 1:00 PM [facility] [employer] [facility] DTL Comment: ----REFERENCE VALUE---- Desirable: <130 mg/dL Above Desirable: 130-159 mg/dL Borderline High: 160-189 mg/dL High: 190-219 mg/dL Very High: > or =220 mg/dL Fasting (8 HR or more) yes 12/24/2023 10:18 AM [facility] [employer] [facility] DTL Blood (Blood, Venous) 12/24/2023 9:44 AM [facility] [employer] [facility] 12/24/2023 10:18 AM [facility] [employer] [facility] Gudelia Soto M.D. LAB BLOOD ADD-ON Performing Organization Address City/[facility]/ZIP Co de Phone Number [facility] [address] [place] [address], [facility] [address] [address] * (ABNORMAL) NT-Pro B-Type Natriuretic Peptide (BNP) (12/24/2023 9:44 AM [facility] [employer] [facility]) NT-Pro BNP 5208(H) <=540 pg/mL 12/24/2023 1:00 PM [facility] [employer] [facility] DTL Comment: NT-proBNP values less than 300 pg/mL have a 99% negative predictive value for excluding acute congestive heart failure. A cutoff of 1200 pg/mL for patients with an eGFR<60 yields a diagnostic sensitivity and specificity of 89% and 72% for acute congestive heart failure. A diagnostic NT-proBNP cutoff of 900 pg/mL has been suggested in adults 50-75 years of age in the absence of renal failure. Blood (Blood, Venous) 12/24/2023 9:44 AM [facility] [employer] [facility] 12/24/2023 10:18 AM [facility] [employer] [facility] Gudelia Soto M.D. LAB BLOOD ADD-ON Performing Organization Address [facility] Co de Phone Number [facility] [address] [place] [address], [facility] [address] [place] [address] * (ABNORMAL) CBC with Differential, Blood (12/24/2023 9:44 AM [facility] [facility] [employer]) Hemoglobin 10.8(L) 13.2 - 16.6 g/dL 12/24/2023 10:39 AM [facility] [employer] [facility] DTL Hematocrit 35.4(L) 38.3 - 48.6 % 12/24/2023 10:39 AM [facility] [employer] [facility] DTL Erythrocytes 4.01(L) 4.35 - 5.65 x10(12)/L 12/24/2023 10:39 AM [facility] [employer] [facility] DTL MCV 88.3 78.2 - 97.9 fL 12/24/2023 10:39 AM [facility] [employer] [facility] DTL RBC Distrib Width 15.0(H) 11.8 - 14.5 % 12/24/2023 10:39 AM [facility] [employer] [facility] DTL Platelet Count 187 135 - 317 x10(9)/L 12/24/2023 10:39 AM [facility] [employer] [facility] DTL Leukocytes 5.5 3.4 - 9.6 x10(9)/L 12/24/2023 10:39 AM [facility] [employer] [facility] DTL Neutrophils 3.96 1.56 - 6.45 x10(9)/L 12/24/2023 10:39 AM [facility] [facility] [employer] DHPM Lymphocytes 0.90(L) 0.95 - 3.07 x10(9)/L 12/24/2023 10:39 AM [facility] [facility] [employer] DTL Monocytes 0.56 0.26 - 0.81 x10(9)/L 12/24/2023 10:39 AM [facility] [employer] [facility] DTL Eosinophils 0.07 0.03 - 0.48 x10(9)/L 12/24/2023 10:39 AM [facility] [employer] [facility] DTL Basophils 0.03 0.01 - 0.08 x10(9)/L 12/24/2023 10:39 AM [facility] [employer] [facility] DTL Blood (Blood, Venous) 12/24/2023 9:44 AM [facility] [facility] [employer] [facility] 12/24/2023 10:07 AM [facility] [facility] [employer] Gudelia Soto M.D. LAB BLOOD ADD-ON [facility] [address] [place] [address], [facility] DTL [facility] [address] [place] [address] [facility] [place] [address] [place] [address] * (ABNORMAL) CRP (C-Reactive Protein) (12/24/2023 9:44 AM [facility] [facility] [employer]) C-Reactive Protein (CRP), S 10.0(H) <5.0 mg/L 12/24/2023 3:48 PM [facility] [employer] [facility] DTL Blood (Blood, Venous) 12/24/2023 9:44 AM [facility] [employer] 12/24/2023 1:18 PM [facility] [facility] [employer] Gudelia Soto M.D. LAB BLOOD ADD-ON Performing Organization Address City/[facility]/ZIP Co de Phone Number [facility] [address] [place] [address] * Sodium (12/24/2023 9:44 AM [facility] [facility] [employer]) Sodium, S 143 135 - 145 mmol/L 12/24/2023 1:00 PM [facility] [employer] [facility] DTL Blood (Blood, Venous) 12/24/2023 9:44 AM [facility] [employer] [facility] 12/24/2023 10:18 AM [facility] [facility] [employer] Gudelia Soto M.D. LAB BLOOD ADD-ON Performing Organization Address City/[facility] Co de Phone Number [facility] [address] [place] [phone] [place] [address] [address] [place] [address] * Potassium (12/24/2023 9:44 AM [facility] [facility] [employer]) Potassium, S 4.1 3.6 - 5.2 mmol/L 12/24/2023 1:00 PM [facility] [employer] [facility] DTL Blood (Blood, Venous) 12/24/2023 9:44 AM [facility] [employer] [facility] 12/24/2023 10:18 AM [facility] [facility] [employer] Gudelia Soto M.D. LAB BLOOD ADD-ON Performing Organization Address City/[facility]/ZIP Co de Phone Number [facility] [address] [place], [place] [phone] [place] [address] [address] [place] [address] * (ABNORMAL) Glucose, Fasting (12/24/2023 9:44 AM [facility] [facility] [employer]) Glucose, P 112(H) 70 - 100 mg/dL 12/24/2023 10:58 AM [facility] [employer] [facility] DTL Last Intake 15 hr 12/24/2023 10:22 AM [facility] [employer] DTL Blood (Blood, Venous) 12/24/2023 9:44 AM [facility] [employer] [facility] 12/24/2023 10:22 AM [facility] [facility] [employer] [facility] Narrative Authorizing Provider Result Bakari Soto M.D. LAB BLOOD NON ADD-ON [facility] [address] [place] [address], [facility] [address] [place] [address] * (ABNORMAL) Creatinine with Estimated GFR (12/24/2023 9:44 AM [facility] [facility] [employer]) Creatinine 2.68(H) 0.74 - 1.35 mg/dL 12/24/2023 1:00 PM [facility] [employer] [facility] DTL Estimated GFR (eGFR) 25(L) >=60 mL/min/BSA 12/24/2023 1:00 PM [facility] [employer] [facility] DTL Comment: Estimated GFR calculated using the 2020 CKD_EPI creatinine equation. Blood (Blood, Venous) 12/24/2023 9:44 AM [facility] [employer] [facility] 12/24/2023 10:18 AM [facility] [facility] [employer] Gudelia Soto M.D. LAB BLOOD ADD-ON Performing Organization Address City/[facility]/ZIP Co de Phone Number [facility] [address] [place], [place] [phone] [place] [address] [facility] [address] [place] [address] * Albumin (12/24/2023 9:44 AM [facility] [facility] [employer]) Albumin, S 3.7 3.5 - 5.0 g/dL 12/24/2023 1:00 PM [facility] [employer] [facility] DTL Blood (Blood, Venous) 12/24/2023 9:44 AM [facility] [employer] 12/24/2023 10:18 AM [facility] [facility] [employer] Gudelia Soto M.D. LAB BLOOD ADD-ON [facility] [address] [place], [place] [phone] [place] [address] [facility] [address] [place] [address] * (ABNORMAL) Prothrombin Time (PT) (12/24/2023 9:43 AM [facility] [facility] [employer]) Pathologist [facility] Prothrombin Time, P 31.8(H) 9.4 - 12.5 sec 12/24/2023 10:34 AM [facility] [employer] [facility] DTL INR 2.8 0.9 - 1.1 12/24/2023 10:34 AM [facility] [employer] [facility] DTL Comment: ----ADDITIONAL INFORMATION---- Standard intensity warfarin therapeutic range: 2.0 to 3.0 ?? High intensity warfarin therapeutic range: 2.5 to 3.5 Blood (Blood, Venous) 12/24/2023 9:43 AM [facility] [employer] 12/24/2023 10:08 AM [facility] [facility] [employer] Gudelia Soto M.D. LAB BLOOD ADD-ON Performing Organization Address City/[facility]/ZIP Co de Phone Number [facility] [address] [place], [place] [phone] [place] [address] [facility] [address] [place] [address] * (ABNORMAL) Sedimentation Rate (12/24/2023 9:39 AM [facility] [facility] [employer]) [facility] Sedimentation Rate, B 29(H) 3 - 28 mm/h 12/24/2023 1:29 PM [facility] [facility] DT Blood (Blood, Venous) 12/24/2023 9:39 AM [facility] [employer] [facility] 12/24/2023 12:40 PM [facility] [facility] [employer] Gudelia Soto M.D. LAB BLOOD ADD-ON [facility] [address] [place], [place] [phone] [address] * (TTE) 2D LIMITED WITH COLOR AND DOPPLER (12/24/2023 8:52 AM [facility] [facility] [employer]) Pathologist [facility] Ejection Fraction 60 MC CV EIMS LV End-Diastolic Diameter 42 MC CV EIMS LV End-Systolic Diameter 28 MC CV EIMS MV E Velocity 0.7 MC CV EIMS MV A Velocity 0.5 MC CV EIMS MV E/A 1.4 MC CV EIMS MV e' Velocity Lateral 0.1 MC CV EIMS MV E/e' Lateral 7 MC CV EIMS Left ventricular stroke volume index 29 MC CV EIMS Cardiac Output 4.74 MC CV EIMS Cardiac Index 2.36 MC CV EIMS Tricuspid Annular S? 0.05 MC CV EIMS TR Vmax 1.91 MC CV EIMS RA Pressure 15 MC CV EIMS RV Systolic Pressure 30 MC CV EIMS AV mean gradient 3 MC CV EIMS Aortic valve area 2.78 MC CV EIMS Aortic Valve Area Index 1.38 MC CV EIMS Aortic Valve Dimensionless Index 0.67 MC CV EIMS Aortic Valve Systolic Peak Velocity 1.2 MC CV EIMS Anatomical Region Laterality Modality Echocardiography 12/24/2023 7:37 AM [facility] [employer] Impressions 12/24/2023 10:57 AM [facility] [facility] [employer] suggestive of pericardial disease. See comments. 2. Status post 23 mm On-X mechanical aortic valve prosthesis, CABG x1, PVI, and DAHIANA amputation (19-SEP-2023, [place]). 3. Normal left ventricular chamber size, calculated 2-D linear ejection fraction 60%. 4. Left ventricular cardiac index 2.36 l/min/m2 with stroke volume index 29 ml/m2. 5. Mildly elevated left ventricular filling pressure. 6. Normal right ventricular chamber size, mildly reduced systolic function, estimated right ventricular systolic pressure 30 mmHg (right atrial pressure of 15 mmHg). 7. Normal aortic valve mechanical prosthesis, prosthesis systolic mean Doppler gradient 3 mmHg, orifice area by Doppler:2.78 cm2. 8. Tiny posterior pericardial effusion , though the pericardium is thickened circumferentially (vs coagulated/fibrinous thickened fluid). 9. Left pleural effusion. Comments Multiple findings suggestive of pericardial pathology including respirophasic septal shift, thickened pericardium (vs coagulated/fibrinous fluid), dilated IVC with prominent expiratory diastolic flow reversals in the hepatic veins, SVC with only subtle variation in systolic forward flow, and medial e' elevated compared to preoperatively. However, mitral inflow not clearly consistent with pericardial disease and annulus reversus not present. The presence of the pleural effusion also is suggestive of post-pericardiotomy syndrome. Thus overall findings suggestive of potential effusive-constrictive pericardial hemodynamics. -CCJ Findings Status post 23 mm On-X mechanical aortic valve prosthesis, CABG x1, PVI, and DAHIANA amputation (19-SEP-2023, [place]). Echocardiogram performed per left ventricular function protocol + assessment of aortic prosthesis. Last full echocardiogram performed 08/17/2023. LEFT VENTRICLE:Normal left ventricular chamber size. Calculated 2-D linear left ventricular ejection fraction 60%. Left ventricular cardiac index 2.36 l/min/m2. Left ventricular stroke volume index 29 ml/m2. Abnormal ventricular septal motion - post-operative ??without other regional wall motion abnormalities. Mildly elevated left ventricular filling pressure. RIGHT VENTRICLE:Normal right ventricular chamber size. Mildly reduced right ventricular systolic function. Estimated right ventricular systolic pressure 30 mmHg (right atrial pressure of 15 mmHg). ATRIA:Enlarged left atrial size by visual estimate. Normal right atrial size by visual estimate. CARDIAC VALVES:Status post 23 mm On-X mechanical aortic valve prosthesis. Normal aortic valve mechanical prosthesis. Aortic valve prosthesis systolic mean Doppler gradient 3 mmHg. Aortic valve prosthetic orifice area by Doppler: 2.78 cm2 Trivial (normal washing jets) aortic valve prosthetic regurgitation. Trivial aortic valve periprosthetic regurgitation. Thickened mitral valve. Mild mitral valve regurgitation. Normal tricuspid valve. Trivial tricuspid valve regurgitation. OTHER ECHO FINDINGS:Enlarged inferior vena cava size with reduced inspiratory collapse (<50%). No intracardiac mass or thrombus, but the left atrial appendage cannot be visualized adequately with transthoracic echo to exclude thrombus in this location. Tiny posterior pericardial effusion. Left pleural effusion. For the complete report, see the Order-Level Documents. 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 Hemodynamics Heart Rate: 82 BPM Blood Pressure: 125 / 77 mmHg ECG: Sinus rhythm Final Impressions 1. Procedure Note Radha Orantes M.D. - 12/24/2023 For the complete report, see the Order-Level Documents. Hemodynamics Heart Rate: 82 BPM Blood Pressure: 125 / 77 mmHg ECG: Sinus rhythm Final Impressions 1. Findings suggestive of pericardial disease. See comments. 2. Status post 23 mm On-X mechanical aortic valve prosthesis, CABG x1,PVI, and DAHIANA amputation (19-SEP-2023, [place]). 3. Normal left ventricular chamber size, calculated 2-D linear ejectionfraction 60%. 4. Left ventricular cardiac index 2.36 l/min/m2 with stroke volume index29 ml/m2. 5. Mildly elevated left ventricular filling pressure. 6. Normal right ventricular chamber size, mildly reduced systolicfunction, estimated right ventricular systolic pressure 30 mmHg (rightatrial pressure of 15 mmHg). 7. Normal aortic valve mechanical prosthesis, prosthesis systolic meanDoppler gradient 3 mmHg, orifice area by Doppler:2.78 cm2. 8. Tiny posterior pericardial effusion , though the pericardium isthickened circumferentially (vs coagulated/fibrinous thickened fluid). 9. Left pleural effusion. Comments Multiple findings suggestive of pericardial pathology includingrespirophasic septal shift, thickened pericardium (vs coagulated/fibrinousfluid), dilated IVC with prominent expiratory diastolic flow reversals inthe hepatic veins, SVC with only subtle variation in systolic forwardflow, and medial e' elevated compared to preoperatively. However, mitralinflow not clearly consistent with pericardial disease and annulusreversus not present. The presence of the pleural effusion also issuggestive of post-pericardiotomy syndrome. Thus overall findingssuggestive of potential effusive-constrictive pericardial hemodynamics.-[facility] Findings Status post 23 mm On-X mechanical aortic valve prosthesis, CABG x1, PVI,and DAHIANA amputation (19-SEP-2023, [place]). Echocardiogram performed per leftventricular function protocol + assessment of aortic prosthesis. Last fullechocardiogram performed 08/17/2023. LEFT VENTRICLE:Normal left ventricular chamber size. Calculated 2-D linearleft ventricular ejection fraction 60%. Left ventricular cardiac index2.36 l/min/m2. Left ventricular stroke volume index 29 ml/m2. Abnormalventricular septal motion - post-operative without other regional wallmotion abnormalities. Mildly elevated left ventricular filling pressure. RIGHT VENTRICLE:Normal right ventricular chamber size. Mildly reducedright ventricular systolic function. Estimated right ventricular systolicpressure 30 mmHg (right atrial pressure of 15 mmHg). ATRIA:Enlarged left atrial size by visual estimate. Normal right atrialsize by visual estimate. CARDIAC VALVES:Status post 23 mm On-X mechanical aortic valve prosthesis.Normal aortic valve mechanical prosthesis. Aortic valve prosthesissystolic mean Doppler gradient 3 mmHg. Aortic valve prosthetic orificearea by Doppler: 2.78 cm2 Trivial (normal washing jets) aortic valveprosthetic regurgitation. Trivial aortic valve periprostheticregurgitation. Thickened mitral valve. Mild mitral valve regurgitation.Normal tricuspid valve. Trivial tricuspid valve regurgitation. OTHER ECHO FINDINGS:Enlarged inferior vena cava size with reducedinspiratory collapse (<50%). No intracardiac mass or thrombus, but theleft atrial appendage cannot be visualized adequately with transthoracicecho to exclude thrombus in this location. Tiny posterior pericardialeffusion. Left pleural effusion. For the complete report, see the Order-Level Documents. Gudelia Soto M.D. CV ECHO PROCEDURES * XR CHEST 1V PORTABLE-Outside Chest Xray (11/11/2023 8:30 AM [facility]) Only the most recent of3 resultswithin the time period is included. Narrative [facility] - 11/11/2023 1:45 PM [facility] [facility] This order has been created and auto-finalized to support the import of outside images. If available, original interpretation can be found on the Media Tab in Chart Review, in Document Viewer, or as an image in QREADS. If a re-interpretation or overread is required please follow defined workflow. ?? Provider Not In System IMG DIAGNOSTIC IM AGING PROCEDURES [facility] NA * INR Reflex, POCT, Blood (11/02/2023 12:42 PM [facility] [employer]) Only the most recent of9 resultswithin the time period is included. INR Reflex, POCT, B 3.6 11/02/2023 12:41 PM [facility] FB60 Comment: ----ADDITIONAL INFORMATION---- Standard intensity warfarin therapeutic range: 2.0 to 3.0 ?? High intensity warfarin therapeutic range: 2.5 to 3.5 Blood (Blood, Capillary) 11/02/2023 12:42 PM [facility] 11/02/2023 12:41 PM [facility] [employer] Kylah Crum M.D. LAB POCT ORDERABLES - DEVICE [facility] [address] [place] [address], [place] [id number] [facility] [place] [address] [place] [address] * (ABNORMAL) Basic Metabolic Panel (10/01/2023 12:02 PM [facility]) Potassium, P 4.5 3.6 - 5.2 mmol/L 10/01/2023 4:33 PM [facility] [employer] Sodium, P 137 135 - 145 mmol/L 10/01/2023 4:33 PM [employer] Chloride, P 99 98 - 107 mmol/L 10/01/2023 4:33 PM [facility] Bicarbonate, P 24 22 - 29 mmol/L 10/01/2023 4:33 PM [employer] [employer] Anion Gap, P 14 7 - 15 10/01/2023 4:33 PM [facility] [employer] BUN (Blood Urea Nitrogen), P 34(H) 8 - 24 mg/dL 10/01/2023 4:33 PM [facility] [employer] Creatinine 2.36(H) 0.74 - 1.35 mg/dL 10/01/2023 4:33 PM [facility] [employer] Estimated GFR (eGFR) 29(L) >=60 mL/min/BSA 10/01/2023 4:33 PM [facility] [employer] Comment: Estimated GFR calculated using the 2020 CKD_EPI creatinine equation. Calcium, Total, P 8.7(L) 8.8 - 10.2 mg/dL 10/01/2023 4:33 PM [employer] Glucose, P 222(H) 70 - 140 mg/dL 10/01/2023 4:33 PM [employer] Blood (Blood, Venous) 10/01/2023 12:02 PM [facility] 10/01/2023 3:43 PM [facility] Kylah Crum M.D. LAB BLOOD ADD-ON [facility] [address] [place] [address], [place] OW[employer] [facility] [place] [address] [place] [address] from Last 3 Months Advance Directives For more information, please contact: [phone] Latest Code Status on File Code Status [...] Answer Comments Full Code: Discussed Care Teams Reading Professor Relationship Specialty Start Date End Date Kylah Crum M.D. [address] [place] [phone] PCP - General Family Medicine 09/28/23
--- OUTSIDE RECORDS SUMMARY | 2023-12-30 07:21 | XMS_ITS | Encounter Summary ---
Author Name Unknown Organization [facility] Address [address] [place] [address] Care Team Providers Care Wireless Architect Name Role Phone Kylah Crum M.D. Primary Care Provider [phone] Reason for Visit * Reason Onset Date Comments Schedule Echo 12/2412/14/2023 NEW Encounter Details Date Type Department Care Team (Latest Contact Info) Description 12/14/2023 Clinical Communication Department of Cardiovascular Medicine in [place], [place] [address] [place] [address] Gudelia Soto M.D. [address] [place] [address] Schedule Echo 12/24 (NEW) Social History Tobacco Use Types Packs/Day Years [...] your living situation today? I have a [facility] place to live 08/29/2023 Sex and Gender Information Value Date Recorded Sex Assigned at Male 08/29/2023 11:06 AM CDT Gender Identity Male 08/29/2023 11:06 AM CDT Sexual Orientation Straight 08/29/2023 11 :06 AM CDT documented as of this encounter Miscellaneous Notes * Telephone Encounter - Sarah Lynn - 12/21/2023 8:42 AM POWER TECHNICIAN Confirmed with pt. R TECHNICIAN documented in this encounter Plan of Treatment Upcoming Encounters Date Type Department Care Team (Late st Contact Info) Description 01/04/2024 10:30 AM POWER TECHNICIAN Comprehensive Visit Division of Hematology in [place], [place] [address] [place] [address] Brandy Real M.D., M.B.A. [address] [place] [address] documented as of this encounter Visit Diagnoses Not on filedocumented in this encounter Additional Health Concerns Assessment Noted Time PHQ-9 Depression Total Score: 1 09/10/20 23 2:06 PM CDT documented as of this encounter Care Teams Wireless Architect Relationship Specialty Start Date End Date Kylah Crum M.D. [address] [place] [phone] PCP - General Family Medicine 09/28/23 documented as of this encounter
--- OUTSIDE RECORDS SUMMARY | 2023-12-30 07:21 | XMS_ITS | Encounter Summary ---
Author Name Unknown Organization [facility] Address [address] [place] [address] Care Team Providers Care Faculty Research Physician Name Role Phone Kylah Crum M.D. Primary Care Provider [phone] Encounter Details Date Type Department Care Team (Latest Contact Info) Description 12/26/2023 Clinical Communication Department of Cardiovascular Medicine in [place], [place] [address] [place] [address] Eneida Loya, RJarrettNJarrett [address] [place] [address] Social History Tobacco Use Types Packs/Day Years [...] st Contact Info) Description 01/04/2024 10:30 AM FIREWOOD CUTTER Comprehensive Visit Division of Hematology in [place], [place] [address] [place] [phone] Brandy Real M.D., M.B.A. [address] [place] [address] documented as of this encounter Visit Diagnoses Not on filedocumented in this encounter Additional Health Concerns Assessment Noted Time PHQ-9 Depression Total Score: 1 09/10/20 2:06 PM CDT documented as of this encounter Care Teams Faculty Research Physician Relationship Specialty Start Date End Date Kylah Crum M.D. [address] [place] [phone] PCP - General Family Medicine 09/28/23 documented as of this encounter
--- OUTSIDE RECORDS SUMMARY | 2023-12-30 07:21 | XMS_ITS | Encounter Summary ---
Author Name Unknown Organization [facility] Address [address] [place] [address] Care Team Providers Care Dramatic Reader Name Role Phone Kylah Crum M.D. Primary Care Provider [phone] Reason for Referral * Outpatient (Routine) - Closed Specialty Diagnoses / Procedures Referred By Chonac t Referred To Contact Diagnoses Stenosis Aortic Valve Acquired Procedures DX Chest AP or PA and Lateral 2 Views Gudelia Soto M.D. [address] [place] [address] [facility] Referral ID Status Reason Start Date Expiration Date Visits Re quested Visits Authorized [id number] Closed 12/14/2023 12/13/2024 1 1 RTMENT EDITOR Reason for Visit * Outpatient (Routine) - Closed Specialty Diagnoses / Procedures Referred By Contjackelin gimenez Referred To Contact Diagnoses Stenosis Aortic Valve Acquired Procedures DX Chest AP or PA and Lateral 2 Views Gudelia Soto M.D. [address] [place] [address] [facility] Referral ID Status Reason Start Date Expiration Date Visits Re quested Visits Authorized [id number] Closed 12/14/2023 12/13/2024 1 1 Encounter Details Date Type Department Care Team (Latest Contact Info) Description 12/24/2023 10:15 AM DEPARTMENT EDITOR - 12/24/2023 11:59 PM DEPARTMENT EDITOR Hospital Encounter Department of Radiology, [facility], in [place], [place] [address] [place] [phone] Gudelia Soto M.D. [address] [place] [address] Stenosis Aortic Valve Acquired Discharge Disposition: Home [...] Take 10 mcg by mouth daily. 0 colchicine (COLCRYS) 0.6 mg tablet Take 0.5 tablets (0.3 mg total) by mouth daily. 30 tablet 2 12/24/2023 cyanocobalamin 2,000 mcg tablet Take 2,000 mcg [...] with breakfast. 30 tablet 0 09/26/2023 metoprolol succinate (TOPROL-XL) 50 mg 24 hr tablet Take 1 tablet by mouth daily. 0 12/20/2023 metoprolol tartrate (LOPRESSOR) 25 mg tablet Take 1 tablet (25 mg total) by mouth 2 (two) times a day. 60 tablet 0 09/26/2023 rOPINIRole (REQUIP) 0.5 mg tablet Take 1 tablet (0.5 mg total) by mouth 3 (three) times a day. 0 09/26/2023 spironolactone (ALDACTONE) 25 mg tablet Take 1 tablet by mouth daily. 0 11/14/2023 tamsulosin (FLOMAX) 0.4 mg 24 hr capsule Take 1 capsule (0.4 mg total) by mouth at bedtime. 0 09/26/2023 torsemide (DEMADEX) 20 mg tablet Take 1 tablet (20 mg total) by mouth daily. 0 11/29/2023 warfarin (JANTOVEN) 1 mg tabletIndications:P rosthesis Aortic Valve Take per Anticoagulation Clinic 180 tablet 3 10/31/2023 documented as of this encounter Plan of Treatment Upcoming Encounters Date Type Department Care Team (Late st Contact Info) Description 01/04/2024 10:30 AM DEPARTMENT EDITOR Comprehensive Visit Division of Hematology in [place], [place] [address] [place] [address] Brandy Real M.D., M.B.A. [address] [place] [address] documented as of this encounter Procedures Procedure Name Priority Date/Time Associated Diagnosis Comments DX CHEST AP OR PA AND LATERAL 2 VIEWS RAD - Routine (most inpatients and all outpatients) 12/24/2023 10:42 AM DEPARTMENT EDITOR Stenosis Aortic Valve Acquired documented in this encounter Results * DX Chest AP or PA and Lateral 2 Views (12/24/2023 10:42 AM DEPARTMENT EDITOR) Anatomical Region Laterality Modality Chest, Thoracic RST LOS, Tho racic ARZ LOS, Thoracic FLA LOS N/A Digital Radiography Impressions 12/24/2023 12:00 PM DEPARTMENT EDITOR Small bilateral pleural effusions are decreased. Improved aeration of the left lung base with decreased previous probable subsegmental atelectasis. No new consolidation. No pneumothorax. Cardiac silhouette is mildly enlarged, unchanged. Prosthetic aortic valve. Intact sternotomy wires. Loop recorder in soft tissues of the anterior chest wall. Narrative 12/24/2023 12:00 PM DEPARTMENT EDITOR EXAM: ??DX CHEST AP OR PA AND [...] Soto M.D. IMG DIAGNOSTIC IMAGI NG PROCEDURES documented in this encounter Visit Diagnoses Diagnosis Stenosis Aortic Valve Acquired documented in this encounter Additional Health Concerns Assessment Noted Time PHQ-9 Depression Total Score: 1 09/10/20 23 2:06 PM CDT documented as of this encounter Care Teams Dramatic Reader Relationship Specialty Start Date End Date Kylah Crum M.D. [address] [place] [phone] PCP - General Family Medicine 09/28/23 documented as of this encounter
--- OUTSIDE RECORDS SUMMARY | 2023-12-30 07:21 | XMS_ITS | Encounter Summary ---
Author Name Unknown Organization [facility] Address [address] [place] [address] Care Team Providers Care Tipple Operator Name Role Phone Kylah Crum M.D. Primary Care Provider [phone] Reason for Referral * MRI/CAT/PET Scan (Routine) - Closed Specialty Diagnoses / Procedures Referred By Contac t Referred To Contact Radiology Diagnoses Pericarditis Constrictive (HCC) Procedures MR Cardiac without and with IV Contrast Gudelia Soto M.D. [address] [place] [address] [facility] Referral ID Status Reason Start Date Expiration Date Visits Re quested Visits Authorized [id number] Closed 12/25/2023 01/24/2024 1 1 CULTURAL COMMODITIES INSPECTOR Reason for Visit * Outpatient (Routine) - Closed Specialty Diagnoses / Procedures Referred By Contact Referred To Contact Cardiovascular Diseases / Cardiovascular Disease Diagnoses Stenosis Aortic Valve Acquired Mare Arauz M.D., Ph.D. [address] [place] [address] [facility] Referral ID Status Reason Start Date Expiration Date Visits Re quested Visits Authorized [id number] Closed 11/27/2023 11/26/2024 1 1 Encounter Details Date Type Department Care Team (Latest Contact Info) Description 12/24/2023 2:00 PM AGRICULTURAL COMMODITIES INSPECTOR Comprehensive Visit Department of Cardiovascular Medicine in [place], [place] [address] [place] [phone] Gudelia Soto M.D. [address] [place] [address] Pericarditis Constrictive (HCC) (Primary Dx); Stenosis Aortic Valve Acquired; Atrial Fibrillation Paroxysmal (HCC); Coronary Artery Disease Without Angina Pectoris; Cardiac Surgery Status Post; Senior Care (Current) Anticoagulant Treatment; Bypass Coronary Artery Graft Status Post; Effusion Pleural; Diabetes Mellitus Type 2 (HCC); Benign Prostatic Hyperplasia Without Obstruction; Stroke Cerebrovascular Accident Personal History Social History [...] Comments Blood Pressure 111/68 12/24/2023 1:40 PM AGRICULTURAL COMMODITIES INSPECTOR Pulse 86 12/24/2023 1:40 PM AGRICULTURAL COMMODITIES INSPECTOR Temperature - - Respiratory Rate - - Oxygen Saturation - - Inhaled Oxygen Concentration - - Weight - - Height - - Body Mass Index - - documented in this encounter Consult Notes * Gudelia Soto M.D. - 12/24/2023 2:00 PM CST REFERRAL SOURCE Mare Arauz M.D., Ph.D. [address] [place] [phone] CHIEF COMPLAINT / REASON FOR VISIT Post-AVR HISTORY OF PRESENT ILLNESS Mr. Harris is a 73 year old male who comes to the valvular heart disease clinic for follow-up of his recent mechanical aortic valve replacement in September of 2023. 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 He had been followed in [place] by primary care. He comes to see me as I hadtaken care of his son in the hospital setting. As background it appears per the family physician notes that he had had some degree of aortic stenosis along with type 2 diabetes mellitus diagnosed in 2011 and CKD diagnosed a few years ago. In addition he had had a stroke in 2019 the etiology of which is not fully clear. It appears a monitor was placed and a note that indicates that perhaps atrial fibrillation had been identified. Then in the end of August he was feeling poorly and presented to the emergency room. A few days prior to that hospital presentation an echocardiogram showed severe aortic stenosis. Ultimately he wasevaluated and offered aortic valve intervention. He chose to have surgical AVR with a mechanical valve. He underwent a [facility] mechanical aortic valve replacement with a CABG x1 along with the left atrial appendage ligation and pulmonary vein isolation on September 19, 2023. Since the hospital dismissal he has had a fairly [address]. He has actually been more symptomatic after surgery compared to prior. He has had 1 left lung thoracentesis at [place] back at the end of October. This was done because he was having trouble laying flat and he was markedly short of breath. They state that 900 cc was removed. Since then he has not quite as winded at he had been and he has slightly more energy at rehab. However, he continues to be short of breath. This gets worse as the day goes on. States while he was here today for appointments he was able to walk to his 1st appointment but since then has been in a wheelchair. Gets coughing spells although they are not as often. He states he has trouble getting a deep breath. He continues to have lower extremity edema although it is better. He also feels his belly being bloated. He states that if he tries to lay flat he has significant issues with coughing but he is able to lay on his left side relatively flat. But it appears he wakes up at times with a panic attack gasping for breath (which seems consistent with PND). He has been monitoring his weights. His weight prior to surgery was 183. He is ranging anywhere from 185-189 lb. He had been on amiodarone but is off that. He is on warfarin for his mechanical valve.He was on furosemide but this was switched to torsemide by the pulp press tender at the end of October.It was 40 mg daily but then it was decreased to 20 mg due to concerns about ???dehydration?? . I suspect his creatinine bumped and that was why the dosage was decreased. He also reports that as he gets more short of breath and fatigued as the day goes on his voice gets softer and a little bit more hoarse. He clearly states he feels worse now than what he felt before surgery. His states that it has been quite disheartening. The following portions of the patient's history were reviewed and updated as appropriate: allergies, current medications, family history, medical history, social history, surgical history and problemlist. In addition, the electronic medical record was reviewed, including any available outside records. MEDICATIONS Current Medications: acetaminophen (TYLENOL) 500 mg [...] tablet (5 mg total) by mouth daily. glipiZIDE (GLUCOTROL XL) 2.5 mg 24 hr tablet, Take 1 tablet (2.5 mg total) by mouth daily with breakfast. metoprolol succinate (TOPROL-XL) 50 mg 24 hr tablet, Take 1 tablet by mouth daily. metoprolol tartrate (LOPRESSOR) 25 mg tablet, Take 1 tablet (25 mg total) by mouth 2 (two) times a day. rOPINIRole (REQUIP) 0.5 mg tablet, Take 1 tablet (0.5 mg total) by mouth 3 (three) times a day. spironolactone (ALDACTONE) 25 mg tablet, Take 1 tablet by mouth daily. tamsulosin (FLOMAX) 0.4 mg 24 hr capsule, Take 1 capsule (0.4 mg total) by mouth at bedtime. torsemide (DEMADEX) 20 mg tablet, Take 1 tablet (20 mg total) by mouth daily. warfarin (JANTOVEN) 1 mg tablet, Take per Anticoagulation Clinic colchicine (COLCRYS) 0.6 mg tablet, Take 0.5 tablets (0.3 mg total) by mouth daily. VITALS BP 111/68 Pulse 86 PHYSICAL EXAMINATION General: He appears somewhat pale. He has intermittent coughing. He has not saying much so it is hard to tell how dyspneic he is with speech but his voice is somewhat weakened. Cardiovascular Exam: JVP is elevated to the angle of his jaw sitting upright. There does seem to beprominent X and Y descent. I do not appreciate a real V- wave. I do not appreciate carotid bruits. Heart sounds are regular. I am not sure that I hear a rub. There is a mechanical aortic valve closuresound heard across the precordium. PMI is difficult to palpate but it has not clearly palpable. There is a trivial systolic ejection murmur over the aortic region Lungs: Very trivial decreased breath sounds in the right base. In the left lung there is decreased breath sounds about a [address] up. He is difficulty taking deep breaths due to coughing Abdomen: Positive bowel sounds. Soft. No hepatosplenomegaly. No abdominal tenderness, no masses. Extremities: 2+ lower extremity pitting edema bilaterally Neuro: Grossly intact. Moves upper and lower extremities equally bilaterally. No facial droop, no dysarthria. Psychiatric: Alert and Oriented to person, place, and time. Not excessively anxious or depressed. DIAGNOSTIC REVIEW EKG: ECG 12 Lead Result Date: 12/24/2023 Poor data quality Normal sinus rhythm Low voltage QRS in limb leads Nonspecific ST and T wave abnormality When compared with ECG of 25-SEP-2023 04:55, No significant change Reviewed by MARIELA Mathews Chest XRAY: Small bilateral pleural effusions are decreased. Improved aeration of the left lung base with decreased previous probable subsegmental atelectasis. No new consolidation. No pneumothorax. Cardiac silhouette is mildly enlarged, unchanged. Prosthetic aortic valve. Intact sternotomy wires. Loop recorder in soft tissues of the anterior chest wall. ECHO: Final Impressions 1. Findings suggestive of pericardial disease. See comments. 2. Status post 23 mm On-X mechanical aortic valve prosthesis, CABG x1, PVI, and DAHIANA amputation (19-SEP-2023, [facility]). 3. Normal left ventricular chamber size, calculated [...] fluid), dilated IVC with prominent expiratory diastolic flowreversals in the hepatic veins, SVC with only subtle variation in systolic forward flow, and mediale' elevated compared to preoperatively. However, mitral inflow not clearly consistent with pericardi al disease and annulus reversus not present. The presence of the pleural effusion also is suggestive of post-pericardiotomy syndrome. Thus overall findings suggestive of potential effusive-constrictive pericardial hemodynamics. -CCJ Labs: Hemoglobin is 10.8. White count platelet count are normal. INR is 2.8. Sed rate is 29. CRP ispending. Creatinine is 2.68 for a GFR 25. NT proBNP is 5208 ASSESSMENT/PLAN: 1. Status post mechanical aortic valve replacement with CABG x1 as well as left atrial appendage ligation and pulmonary vein isolation in September 2. 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 Chronic kidney disease with a worsening creatinine post surgery 4. Remote stroke with reported probable paroxysmal atrial fibrillation 5. Chronic anticoagulation with a therapeutic INR on warfarin 6. Presumed paroxysmal atrial fibrillation. Had been on amiodarone which is now off. Clinically in sinus rhythm 7. Type 2 diabetes mellitus 8. Anemia. Likely related to chronic kidney disease. Baseline hemoglobins prior to surgery were 11.7 I think that his symptoms can be attributed to the postop effusive constrictive findings seen on echocardiography. Unfortunately with his kidney disease we can not give him nonsteroidal anti-inflammatory drugs. We will give him very low- dose colchicine given his GFR (0.3 mg once a day). We will go ahead and schedule an MRI which is now on for tomorrow. If this shows active inflammation the plan would be to initiate steroids with a taper. I suspect his symptoms will improve once we can get the constrictive physiology to go away. At the current time no plans to do a pericardiocentesis but this might be something to consider depending on how he does. We will also hold off on thoracentesis as the effusion in his left lung is smaller than October. He can continue the warfarin at the current time. I have asked him to take a higher dose torsemide (40 mg) the next 3 days. My hope is his creatinine will improve once we removed the constrictive physiology. I will communicate with him after the MRI to give next steps as far as steroid dosage and tapering. And whether there is any role for pericardiocentesis (does not appear that the effusion is large enough for this). This was all discussed at length with the patient and his . They understand and are agreeable. DIAGNOSIS: #1 Pericarditis Constrictive (HCC) #2 Stenosis Aortic Valve Acquired Gudelia Soto M.D. 12/24/2023 CULTURAL COMMODITIES INSPECTOR documented in this encounter Plan of Treatment Upcoming Encounters Date Type Department Care Team (Late st Contact Info) Description 01/04/2024 10:30 AM AGRICULTURAL COMMODITIES INSPECTOR Comprehensive Visit Division of Hematology in [place], [place] [address] [place] [address] Brandy Real M.D., M.B.A. [address] [place] [address] documented as of this encounter Procedures Procedure Name Priority Date/Time Associated Diagnosis Comments C-REACTIVE PROTEIN (CRP), S/P Routine 12/24/2023 9:44 AM AGRICULTURAL COMMODITIES INSPECTOR Pericarditis Constrictive (HCC) SEDIMENTATION RATE, B Routine 12/24/2023 9:39 AM AGRICULTURAL COMMODITIES INSPECTOR Pericarditis Constrictive (HCC) documented in this encounter Results * MR Cardiac without and with IV Contrast (12/25/2023 4:05 PM AGRICULTURAL COMMODITIES INSPECTOR) Anatomical Region Laterality Modality Cardiac, Cardiovascular RST LOS, Thoracic ARZ LOS, Cardiovascular FLA LOS N/A Magnetic Resonance Impressions 12/25/2023 5:08 PM AGRICULTURAL COMMODITIES INSPECTOR 1. 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 2. ??Small fibrinous loculated pericardial effusion, predominantly along the lateral and inferior aspects of the left ventricle. 3. ??Normal biventricular chamber size and function. 4. ??Large bilateral pleural effusions. Small amount of abdominal ascites. Narrative 12/25/2023 5:08 PM AGRICULTURAL COMMODITIES INSPECTOR EXAM: ??MR CARDIAC WITHOUT AND WITH IV [...] the inferior RV insertion points (series 28, -83). RIGHT VENTRICLE: Normal right ventricular chamber size [...] effusions. Small amount of abdominal ascites. Gudelia Soto M.D. IMG MRI PROCEDURES * (ABNORMAL) CRP (C-Reactive Protein) (12/24/2023 9:44 AM AGRICULTURAL COMMODITIES INSPECTOR) C-Reactive Protein (CRP), S 10.0(H) <5.0 mg/L 12/24/2023 3:48 PM AGRICULTURAL COMMODITIES INSPECTOR DTL Blood (Blood, Venous) 12/24/2023 9:44 AM AGRICULTURAL COMMODITIES INSPECTOR 12/24/2023 1:18 PM AGRICULTURAL COMMODITIES INSPECTOR Gudelia Soto M.D. LAB BLOOD ADD-ON [facility] [address] [place] [address], [facility] [address] [place] [address] * (ABNORMAL) Sedimentation Rate (12/24/2023 9:39 AM AGRICULTURAL COMMODITIES INSPECTOR) Sedimentation Rate, B 29(H) 3 - 28 mm/h 12/24/2023 1:29 PM AGRICULTURAL COMMODITIES INSPECTOR DTL Blood (Blood, Venous) 12/24/2023 9:39 AM AGRICULTURAL COMMODITIES INSPECTOR 12/24/2023 12:40 PM AGRICULTURAL COMMODITIES INSPECTOR Gudelia Soto M.D. LAB BLOOD ADD-ON [facility] [address] [place] [address], [facility] DTL [facility] [address] [place] [address] documented in this encounter Visit Diagnoses Diagnosis Pericarditis Constrictive (HCC)- Primary Stenosis Aortic Valve Acquired Atrial Fibrillation Paroxysmal (HCC) Coronary Artery Disease Without Angina Pectoris Cardiac Surgery Status Post Senior Care (Current) Anticoagulant Treatment Bypass Coronary Artery Graft Status Post Effusion Pleural Diabetes Mellitus Type 2 (HCC) Benign Prostatic Hyperplasia Without Obstruction Stroke Cerebrovascular Accident Personal History Pericarditis Constrictive (HCC) documented in this encounter Additional Health Concerns Assessment Noted Time PHQ-9 Depression Total Score: 1 09/10/20 23 2:06 PM CDT documented as of this encounter Care Teams Tipple Operator Relationship Specialty Start Date End Date Kylah Crum M.D. [address] [place] [phone] PCP - General Family Medicine 09/28/23 documented as of this encounter
--- OUTSIDE RECORDS SUMMARY | 2023-12-30 07:21 | XMS_ITS | Encounter Summary ---
Author Name Unknown Organization [facility] Address [address] [place] [address] Care Team Providers Care Perinatal Nurse Name Role Phone Kylah Crum M.D. Primary Care Provider Reason for Referral * Outpatient (Routine) - Closed Specialty Diagnoses / Procedures Referred By Sebas gimenez Referred To Contact Diagnoses Stenosis Aortic Valve Acquired Procedures Echo Transthoracic (TTE) - Complex Valvular Heart Disease Gudelia Soto M.D. [address] [place] [address] [facility] Referral ID Status Reason Start Date Expiration Date Visits Re quested Visits Authorized [id number] Closed 12/14/2023 12/13/2024 1 1 POINT SPLITTER Reason for Visit * Outpatient (Routine) - Closed Specialty Diagnoses / Procedures Referred By Sebas gimenez Referred To Contact Diagnoses Stenosis Aortic Valve Acquired Procedures Echo Transthoracic (TTE) - Complex Valvular Heart Disease Gudelia Soto M.D. [address] [place] [address] [facility] Referral ID Status Reason Start Date Expiration Date Visits Re quested Visits Authorized [id number] Closed 12/14/2023 12/13/2024 1 1 Encounter Details Date Type Department Care Team (Latest Contact Info) Description 12/24/2023 7:30 AM BALL POINT SPLITTER - 12/24/2023 9:06 AM BALL POINT SPLITTER Hospital Encounter Department of Cardiovascular Diseases in [place], [place] [address] [place] [phone] Gudelia Soto M.D. [address] [place] [address] Stenosis Aortic Valve Acquired Discharge Disposition: Home [...] st Contact Info) Description 01/04/2024 10:30 AM BALL POINT SPLITTER Comprehensive Visit Division of Hematology in [place], [place] [address] [place] [address] Brandy Real M.D., M.B.A. [address] [place] [phone] documented as of this encounter Procedures Procedure Name Priority Date/Time Associated Diagnosis Comments (TTE) 2D LIMITED WITH COLOR AND DOPPLER Routine 12/24/2023 8:52 AM BALL POINT SPLITTER Stenosis Aortic Valve Acquired documented in this encounter Results * (TTE) 2D LIMITED WITH COLOR AND DOPPLER (12/24/2023 8:52 AM BALL POINT SPLITTER) Ejection Fraction 60 MC CV EIMS LV [...] Region Laterality Modality Echocardiography 12/24/2023 7:37 AM BALL POINT SPLITTER Impressions 12/24/2023 10:57 AM BALL POINT SPLITTER suggestive of pericardial disease. See comments. 2. Status post 23 mm On-X mechanical aortic valve prosthesis, CABG x1, PVI, and DAHIANA amputation (19-SEP-2023, [facility]). 3. Normal left ventricular chamber size, calculated [...] CABG x1, PVI, and DAHIANA amputation (19-SEP-2023, [facility]). Echocardiogram performed per left ventricular function protocol [...] the Order-Level Documents. Narrative 12/24/2023 10:57 AM BALL POINT SPLITTER For the complete report, see the Order-Level [...] prosthesis, CABG x1,PVI, and DAHIANA amputation (19-SEP-2023, [facility]). 3. Normal left ventricular chamber size, calculated [...] prosthesis, CABG x1, PVI,and DAHIANA amputation (19-SEP-2023, [facility]). Echocardiogram performed per leftventricular function protocol + [...] Documents. Gudelia Soto M.D. CV ECHO PROCEDURES documented in this encounter Visit Diagnoses Diagnosis Stenosis Aortic Valve Acquired documented in this encounter Additional Health Concerns Assessment Noted Time PHQ-9 Depression Total Score: 1 09/10/20 23 2:06 PM CDT documented as of this encounter Care Teams Perinatal Nurse Relationship Specialty Start Date End Date Kylah Crum M.D. [address] [place] [address] [place] [address] PCP - General Family Medicine 09/28/23 documented as of this encounter
--- OUTSIDE RECORDS SUMMARY | 2023-12-30 07:21 | XMS_ITS | Encounter Summary ---
Author Name Unknown Organization [facility] Address [address] [place] [address] Care Team Providers Care Electronics Recycler Name Role Phone Kylah Crum M.D. Primary Care Provider [phone] Encounter Details Date Type Department Care Team (Latest Contact Info) Description 12/24/2023 9:07 AM GENERAL UTILITY MAINTENANCE REPAIRER - 12/24/2023 10:14 AM [facility] Hospital Encounter Department of Laboratory Medicine and Pathology, [facility] in [place], [place] [address] [place] [address] Gudelia Soto M.D. [address] [place] [address] Stenosis Aortic Valve Acquired Discharge Disposition: Home [...] your living situation today? I have a [facility] to live 08/29/2023 Sex and [...] st Contact Info) Description 01/04/2024 10:30 AM GENERAL UTILITY MAINTENANCE REPAIRER Comprehensive Visit Division of Hematology in [place], [place] [address] [place] [phone] Brandy Real M.D., M.B.A. [address] [place] [phone] documented as of this encounter Procedures Procedure Name Priority Date/Time Associated Diagnosis Comments LIPID PANEL, S Routine 12/24/2023 9:44 AM GENERAL UTILITY MAINTENANCE REPAIRER Stenosis Aortic Valve Acquired NT-PRO B-TYPE NATRIURETIC PEPTIDE (BNP), S Routine 12/24/2023 9:44 AM GENERAL UTILITY MAINTENANCE REPAIRER Stenosis Aortic Valve Acquired CBC WITH DIFFERENTIAL, B Routine 12/24/2023 9:44 AM GENERAL UTILITY MAINTENANCE REPAIRER Stenosis Aortic Valve Acquired SODIUM, S/P Routine 12/24/2023 9:44 AM GENERAL UTILITY MAINTENANCE REPAIRER Stenosis Aortic Valve Acquired POTASSIUM, S/P Routine 12/24/2023 9:44 AM GENERAL UTILITY MAINTENANCE REPAIRER Stenosis Aortic Valve Acquired GLUCOSE, FASTING, S/P Routine 12/24/2023 9:44 AM GENERAL UTILITY MAINTENANCE REPAIRER Stenosis Aortic Valve Acquired CREATININE WITH EGFR, S/P Routine 12/24/2023 9:44 AM GENERAL UTILITY MAINTENANCE REPAIRER Stenosis Aortic Valve Acquired ALBUMIN, S/P Routine 12/24/2023 9:44 AM GENERAL UTILITY MAINTENANCE REPAIRER Stenosis Aortic Valve Acquired PROTHROMBIN TIME (PT), P Routine 12/24/2023 9:43 AM GENERAL UTILITY MAINTENANCE REPAIRER Stenosis Aortic Valve Acquired documented in this encounter Results * Sodium (12/24/2023 9:44 AM GENERAL UTILITY MAINTENANCE REPAIRER) Sodium, S 143 135 - 145 mmol/L 12/24/2023 1:00 PM GENERAL UTILITY MAINTENANCE REPAIRER DTL Blood (Blood, Venous) 12/24/2023 9:44 AM GENERAL UTILITY MAINTENANCE REPAIRER 12/24/2023 10:18 AM GENERAL UTILITY MAINTENANCE REPAIRER Gudelia Soto M.D. LAB BLOOD ADD-ON [facility] [address] [place] [address], [facility] [address] [place] [address] * Potassium (12/24/2023 9:44 AM GENERAL UTILITY MAINTENANCE REPAIRER) Potassium, S 4.1 3.6 - 5.2 mmol/L 12/24/2023 1:00 PM GENERAL UTILITY MAINTENANCE REPAIRER DTL Blood (Blood, Venous) 12/24/2023 9:44 AM GENERAL UTILITY MAINTENANCE REPAIRER 12/24/2023 10:18 AM GENERAL UTILITY MAINTENANCE REPAIRER Gudelia Soto M.D. LAB BLOOD ADD-ON Performing Organization Address City/[facility] Co de Phone Number [facility] [place] [address] [place] [address], [address] [address] * (ABNORMAL) NT-Pro B-Type Natriuretic Peptide (BNP) (12/24/2023 9:44 AM GENERAL UTILITY MAINTENANCE REPAIRER) NT-Pro BNP 5208(H) <=540 pg/mL 12/24/2023 1:00 PM GENERAL UTILITY MAINTENANCE REPAIRER DTL Comment: NT-proBNP values less than 300 [...] failure. Blood (Blood, Venous) 12/24/2023 9:44 AM GENERAL UTILITY MAINTENANCE REPAIRER 12/24/2023 10:18 AM GENERAL UTILITY MAINTENANCE REPAIRER Gudelia Soto M.D. LAB BLOOD ADD-ON Performing Organization Address [facility] Co de Phone Number [facility] [place] [address] [place] [address], [facility] [address] [place] [address] * Lipid Panel (12/24/2023 9:44 AM GENERAL UTILITY MAINTENANCE REPAIRER) Triglycerides 68 mg/dL 12/24/2023 1:00 PM GENERAL UTILITY MAINTENANCE REPAIRER DTL Comment: ----REFERENCE VALUE---- Normal: <150 mg/dL Borderline High: 150-199 mg/dL High: 200-499 mg/dL Very High: > or =500 mg/dL Cholesterol, Total 107 mg/dL 2023 1:00 PM GENERAL UTILITY MAINTENANCE REPAIRER DTL Comment: ----REFERENCE VALUE---- Desirable: < 200 mg/dL Borderline High: 200 - 239 mg/dL High: > or = 240 mg/dL Cholesterol, LDL, Calculated 50 mg/dL 12/24/2023 1:00 PM GENERAL UTILITY MAINTENANCE REPAIRER DTL Comment: ----REFERENCE VALUE---- Desirable: <100 mg/dL Above Desirable: 100-129 mg/dL Borderline High: 130-159 mg/dL High: 160-189 mg/dL Very High: >=190 mg/dL ----ADDITIONAL INFORMATION---- LDL cholesterol calculated using the Iglesias/NIH equation. Cholesterol, HDL, S 42 >=40 mg/dL 12/24/2023 1:00 PM GENERAL UTILITY MAINTENANCE REPAIRER DTL Cholesterol, Non-HDL, Calculated 65 mg/dL 12/24/2023 1:00 PM GENERAL UTILITY MAINTENANCE REPAIRER DTL Comment: ----REFERENCE VALUE---- Desirable: <130 mg/dL Above Desirable: 130-159 mg/dL Borderline High: 160-189 mg/dL High: 190-219 mg/dL Very High: > or =220 mg/dL Fasting (8 HR or more) yes 12/24/2023 10:18 AM GENERAL UTILITY MAINTENANCE REPAIRER DTL Blood (Blood, Venous) 12/24/2023 9:44 AM GENERAL UTILITY MAINTENANCE REPAIRER 12/24/2023 10:18 AM GENERAL UTILITY MAINTENANCE REPAIRER Gudelia Soto M.D. LAB BLOOD ADD-ON Performing Organization Address [facility]/State/[place] [address], [facility] [place] [address] * (ABNORMAL) Glucose, Fasting (12/24/2023 9:44 AM GENERAL UTILITY MAINTENANCE REPAIRER) Glucose, P 112(H) 70 - 100 mg/dL 12/24/2023 10:58 AM GENERAL UTILITY MAINTENANCE REPAIRER DTL Last Intake 15 hr 12/24/2023 10:22 AM GENERAL UTILITY MAINTENANCE REPAIRER DTL Blood (Blood, Venous) 12/24/2023 9:44 AM GENERAL UTILITY MAINTENANCE REPAIRER 12/24/2023 10:22 AM GENERAL UTILITY MAINTENANCE REPAIRER Gudelia Soto M.D. LAB BLOOD NON ADD-ON Performing Organization Address City/[facility] Co de Phone Number [facility] [place] [address] [place], [place] [phone] [place] [phone] * (ABNORMAL) Creatinine with Estimated GFR (12/24/2023 9:44 AM GENERAL UTILITY MAINTENANCE REPAIRER) Pathologist [facility] Creatinine 2.68(H) 0.74 - 1.35 mg/dL 12/24/2023 1:00 PM GENERAL UTILITY MAINTENANCE REPAIRER DTL Estimated GFR (eGFR) 25(L) >=60 mL/min/BSA 12/24/2023 1:00 PM GENERAL UTILITY MAINTENANCE REPAIRER DTL Comment: Estimated GFR calculated using the 2020 CKD_EPI creatinine equation. Blood (Blood, Venous) 12/24/2023 9:44 AM GENERAL UTILITY MAINTENANCE REPAIRER 12/24/2023 10:18 AM GENERAL UTILITY MAINTENANCE REPAIRER Gudelia Soto M.D. LAB BLOOD ADD-ON Performing Organization Address [facility] Co de Phone Number [facility] [place] [address] [place] [address], [facility] [address] [place] [address] * (ABNORMAL) CBC with Differential, Blood (12/24/2023 9:44 AM GENERAL UTILITY MAINTENANCE REPAIRER) [facility] Hemoglobin 10.8(L) 13.2 - 16.6 g/dL 12/24/2023 10:39 AM GENERAL UTILITY MAINTENANCE REPAIRER DTL Hematocrit 35.4(L) 38.3 - 48.6 % 12/24/2023 10:39 AM GENERAL UTILITY MAINTENANCE REPAIRER DTL Erythrocytes 4.01(L) 4.35 - 5.65 x10(12)/L 12/24/2023 10:39 AM GENERAL UTILITY MAINTENANCE REPAIRER DTL MCV 88.3 78.2 - 97.9 fL 12/24/2023 10:39 AM GENERAL UTILITY MAINTENANCE REPAIRER DTL RBC Distrib Width 15.0(H) 11.8 - 14.5 % 12/24/2023 10:39 AM GENERAL UTILITY MAINTENANCE REPAIRER DTL Platelet Count 187 135 - 317 x10(9)/L 12/24/2023 10:39 AM GENERAL UTILITY MAINTENANCE REPAIRER DTL Leukocytes 5.5 3.4 - 9.6 x10(9)/L 12/24/2023 10:39 AM GENERAL UTILITY MAINTENANCE REPAIRER DTL Neutrophils 3.96 1.56 - 6.45 x10(9)/L 12/24/2023 10:39 AM GENERAL UTILITY MAINTENANCE REPAIRER DHPM Lymphocytes 0.90(L) 0.95 - 3.07 x10(9)/L 12/24/2023 10:39 AM GENERAL UTILITY MAINTENANCE REPAIRER DTL Monocytes 0.56 0.26 - 0.81 x10(9)/L 12/24/2023 10:39 AM GENERAL UTILITY MAINTENANCE REPAIRER DTL Eosinophils 0.07 0.03 - 0.48 x10(9)/L 12/24/2023 10:39 AM GENERAL UTILITY MAINTENANCE REPAIRER DTL Basophils 0.03 0.01 - 0.08 x10(9)/L 12/24/2023 10:39 AM GENERAL UTILITY MAINTENANCE REPAIRER DTL Blood (Blood, Venous) 12/24/2023 9:44 AM GENERAL UTILITY MAINTENANCE REPAIRER 12/24/2023 10:07 AM GENERAL UTILITY MAINTENANCE REPAIRER Gudelia Soto M.D. LAB BLOOD ADD-ON [facility] [place] [address] [place] [address], [facility] [address] [place], [place] [phone] [place] [address] [address] [place] [address] * Albumin (12/24/2023 9:44 AM GENERAL UTILITY MAINTENANCE REPAIRER) Albumin, S 3.7 3.5 - 5.0 g/dL 12/24/2023 1:00 PM GENERAL UTILITY MAINTENANCE REPAIRER DTL Blood (Blood, Venous) 12/24/2023 9:44 AM GENERAL UTILITY MAINTENANCE REPAIRER 12/24/2023 10:18 AM GENERAL UTILITY MAINTENANCE REPAIRER Gudelia Soto M.D. LAB BLOOD ADD-ON [facility] [place] [address] [place] [address], [facility] [address] [place] [address] * (ABNORMAL) Prothrombin Time (PT) (12/24/2023 9:43 AM GENERAL UTILITY MAINTENANCE REPAIRER) Prothrombin Time, P 31.8(H) 9.4 - 12.5 sec 12/24/2023 10:34 AM GENERAL UTILITY MAINTENANCE REPAIRER DTL INR 2.8 0.9 - 1.1 12/24/2023 10:34 AM GENERAL UTILITY MAINTENANCE REPAIRER DTL Comment: ----ADDITIONAL INFORMATION---- Standard intensity warfarin therapeutic range: 2.0 to 3.0 ?? High intensity warfarin therapeutic range: 2.5 to 3.5 Blood (Blood, Venous) 12/24/2023 9:43 AM GENERAL UTILITY MAINTENANCE REPAIRER 12/24/2023 10:08 AM GENERAL UTILITY MAINTENANCE REPAIRER Gudelia Soto M.D. LAB BLOOD ADD-ON [address] [address], [facility] [address] [place] [address] documented in this encounter Visit Diagnoses Diagnosis Stenosis Aortic Valve Acquired documented in this encounter Additional Health Concerns Assessment Noted Time PHQ-9 Depression Total Score: 1 09/10/20 23 2:06 PM CDT documented as of this encounter Care Teams Electronics Recycler Relationship Specialty Start Date End Date Kylah Crum M.D. [address] [place] [phone] PCP - General Family Medicine 09/28/23 documented as of this encounter
--- OUTSIDE RECORDS SUMMARY | 2023-12-30 07:21 | XMS_ITS | Encounter Summary ---
Author Name Unknown Organization [facility] Address [address] [place] [address] Care Team Providers Care Tailercpa Name Role Phone Kylah Crum M.D. Primary Care Provider Encounter Details Date Type Department Care Team (Latest Contact Info) Description 12/26/2023 Clinical Communication Department of Cardiovascular Medicine in [place], [place] [address] [place] [address] Eneida Loya, RJarrettNJarrett [address] [place] [address] Social History Tobacco Use Types Packs/Day Years [...] st Contact Info) Description 01/04/2024 10:30 AM SUPERVISOR EXTRUSION Comprehensive Visit Division of Hematology in [place], [place] [address] [place] [address] Brandy Real M.D., M.B.A. [address] [place] [address] documented as of this encounter Visit Diagnoses Diagnosis Pericardial Disease (HCC)- Primary documented in this encounter Additional Health Concerns Assessment Noted Time PHQ-9 Depression Total Score: 1 09/10/20 23 2:06 PM CDT documented as of this encounter Care Teams Tailercpa Relationship Specialty Start Date End Date Kylah Crum M.D. [address] [place] [phone] PCP - General Family Medicine 09/28/23 documented as of this encounter
--- OUTSIDE RECORDS SUMMARY | 2023-12-30 07:21 | XMS_ITS | Encounter Summary ---
Author Name Unknown Organization [facility] Address [address] [place] [address] Care Team Providers Care Director Of First Impressions Name Role Phone Kylah Crum M.D. Primary Care Provider [phone] Reason for Referral * MRI/CAT/PET Scan (Routine) - Closed Specialty Diagnoses / Procedures Referred By Sebas gimenez Referred To Contact Radiology Diagnoses Pericarditis Constrictive (HCC) Procedures MR Cardiac without and with IV Contrast Gudelia Soto M.D. [address] [place] [address] [facility] Referral ID Status Reason Start Date Expiration Date Visits Re quested Visits Authorized [id number] Closed 12/25/2023 01/24/2024 1 1 Y OPERATOR Reason for Visit * MRI/CAT/PET Scan (Routine) - Closed Specialty Diagnoses / Procedures Referred By Sebas gimenez Referred To Contact Radiology Diagnoses Pericarditis Constrictive (HCC) Procedures MR Cardiac without and with IV Contrast Gudelia Soto M.D. [address] [place] [address] [facility] Referral ID Status Reason Start Date Expiration Date Visits Re quested Visits Authorized [id number] Closed 12/25/2023 01/24/2024 1 1 Encounter Details Date Type Department Care Team (Latest Contact Info) Description 12/25/2023 2:20 PM BUGGY OPERATOR - 12/25/2023 11:59 PM BUGGY OPERATOR Hospital Encounter Department of Radiology, [facility] in [place], [place] [address] [place] [address] Gudelia Soto M.D. [address] [place] [address] Pericarditis Constrictive (HCC) Discharge Disposition: Home or [...] Sign Reading Time Taken Comments Blood Pressure - - Pulse - - Temperature - - Respiratory Rate - - Oxygen Saturation - - Inhaled Oxygen Concentration - - Weight 85.2 kg (187 lb 13.3 oz) 12/25/2023 2:40 PM BUGGY OPERATOR Height 169.5 cm (5' 6.73) 12/25/2023 2:40 PM CS T Body Mass Index 29.66 12/25/2023 2:40 PM BUGGY OPERATOR documented in this encounter Medications at Time [...] st Contact Info) Description 01/04/2024 10:30 AM BUGGY OPERATOR Comprehensive Visit Division of Hematology in [place], [place] [address] [place] [address] Brandy Real M.D., M.B.A. [address] [place] [address] documented as of this encounter Procedures Procedure Name Priority Date/Time Associated Diagnosis Comments MR CARDIAC WITHOUT AND WITH IV CONTRAST RAD - Routine (most inpatients and all outpatients) 12/25/2023 4:05 PM BUGGY OPERATOR Pericarditis Constrictive (HCC) documented in this encounter Results * MR Cardiac without and with IV Contrast (12/25/2023 4:05 PM BUGGY OPERATOR) Anatomical Region Laterality Modality Cardiac, Cardiovascular RST LOS, Thoracic ARZ LOS, Cardiovascular FLA LOS N/A Magnetic Resonance Impressions 12/25/2023 5:08 PM BUGGY OPERATOR 1. 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 2. ??Small fibrinous loculated pericardial effusion, predominantly along the lateral and inferior aspects of the left ventricle. 3. ??Normal biventricular chamber size and function. 4. ??Large bilateral pleural effusions. Small amount of abdominal ascites. Narrative 12/25/2023 5:08 PM BUGGY OPERATOR EXAM: ??MR CARDIAC WITHOUT AND WITH IV [...] the inferior RV insertion points (series 28, -55). RIGHT VENTRICLE: Normal right ventricular chamber size [...] of abdominal ascites. Gudelia SHELTON MRI PROCEDURES documented in this encounter Visit Diagnoses Diagnosis Pericarditis Constrictive (HCC) documented in this encounter Administered Medications Inactive Administered Medications - up to 3 most recent administrations Medication Order MAR Action Action Date Dose Rate Site gadobutrol injection 0.01-30 mL (GADAVIST) 0.01-30 mL, intravenous, Once in imaging, contrast, Starting on Sun12/25/23 at 1436, For 1 dose, Imaging Protocol Orders, Dose per Radiant Medication Guidelines Intrathecal doses greater than 0.25 mL not recommended. Given 12/25/2023 4:08 PM BUGGY OPERATOR 18 mL sodium chloride (PF) 0.9 % injection 1-100 mL 1-100 mL, intravenous, Once, On Sun12/25/23 at 1500, For 1 dose, Imaging Protocol Orders, Dose per Radiant Medication Guidelines Given 12/25/2023 4:08 PM BUGGY OPERATOR 20 mL documented in this encounter Additional Health Concerns Assessment Noted Time PHQ-9 Depression Total Score: 1 09/10/20 23 2:06 PM CDT documented as of this encounter Care Teams Director Of First Impressions Relationship Specialty Start Date End Date Kylah Crum M.D. [address] [place] [address] [place] [phone] PCP - General Family Medicine 09/28/23 documented as of this encounter
--- OUTSIDE RECORDS SUMMARY | 2023-12-30 07:21 | XMS_ITS ---
Author Name Unknown Organization [facility] Address [address] [place] [address] Care Team Providers Care Sewing Department Supervisor Name Role Phone Unavailable Unavailable Unavailable Surgery Details Not on file Complications Check Surgery Details section. Procedure Estimated Blood Loss Check Surgery Details section. Procedure Findings Check Surgery Details section. Procedure Specimens Taken Check Surgery Details section.
--- OUTSIDE RECORDS SUMMARY | 2023-12-30 07:21 | XMS_ITS | Referral Summary ---
Author Name Unknown Organization [facility] Address [address] [place] [address] Care Team Providers Care Cardiac Catheterization Technician Name Role Phone Kylah Crum M.D. Primary Care Provider [phone] Source Comments Patient records contain information from all sites at [facility]. For routine questions regarding patient records, call [phone] during business hours, M-F 8:00 AM - 5:00 PM Central Time. Record requests for emergency care only can be directed to [phone] at any time.[facility] Encounters Date Type Department Care Team Description 12/27/2023 Clinical Communication Department of Cardiovascular Medicine in [place], [place] [address] [place] [address] Eneida Loya, R.N. 12/26/2023 Clinical Communication Department of Cardiovascular Medicine in [place], [place] [address] [place] [address] Eneida Loya, R.N. 12/26/2023 Clinical Communication Department of Cardiovascular Medicine in [place], [place] [address] [place] [address] Eneida Loya, R.N. 12/25/2023 2:20 PM COMPUTER SCIENCES PROFESSOR - 12/25/2023 11:59 PM COMPUTER SCIENCES PROFESSOR Hospital Encounter Department of Radiology, [facility], in [place], [place] [address] [place] [address] Gudelia Soto M.D. Pericarditis Constrictive (HCC) Discharge Disposition: Home or Self Care 12/24/2023 9:07 AM COMPUTER SCIENCES PROFESSOR - 12/24/2023 10:14 AM COMPUTER SCIENCES PROFESSOR Hospital Encounter Department of Laboratory Medicine and Pathology, [facility], in [place], [place] [address] [place] [address] Gudelia Soto M.D. Stenosis Aortic Valve Acquired Discharge Disposition: Home or Self Care 12/24/2023 7:30 AM COMPUTER SCIENCES PROFESSOR - 12/24/2023 9:06 AM COMPUTER SCIENCES PROFESSOR Hospital Encounter Department of Cardiovascular Diseases in [place], [place] [address] [place] [address] Gudelia Soto M.D. Stenosis Aortic Valve Acquired Discharge Disposition: Home or Self Care 12/24/2023 10:15 AM COMPUTER SCIENCES PROFESSOR - 12/24/2023 11:59 PM COMPUTER SCIENCES PROFESSOR Hospital Encounter Department of Radiology, [facility] in [place], [place] [address] [place] [address] Gudelia Soto M.D. Stenosis Aortic Valve Acquired Discharge Disposition: Home or Self Care 12/24/2023 2:00 PM COMPUTER SCIENCES PROFESSOR Comprehensive Visit Department of Cardiovascular Medicine in [place], [place] [address] [place] [address] Gudelia Soto M.D. Pericarditis Constrictive (HCC) (Primary Dx); Stenosis Aortic Valve Acquired; Atrial Fibrillation Paroxysmal (HCC); Coronary Artery Disease Without Angina Pectoris; Cardiac Surgery Status Post; Jogger Operator (Current) Anticoagulant Treatment; Bypass Coronary Artery Graft Status Post; Effusion Pleural; Diabetes Mellitus Type 2 (HCC); Benign Prostatic Hyperplasia Without Obstruction; Stroke Cerebrovascular Accident Personal History 12/14/2023 Clinical Communication Department of Cardiovascular Medicine in [place], [place] [address] [place] [address] Gudelia Soto M.D. Schedule Echo 12/24 (NEW) 11/30/2023 Orders Only Department of Cardiovascular Medicine in [place], [place] [address] [place] [address] Gudelia Soto M.D. Stenosis Aortic Valve Acquired (Primary Dx) 11/28/2023 Clinical Communication Department of Cardiovascular Medicine in [place], [place] [address] [place] [address] Bethany Downs R.N. Triage 11/27/2023 Orders Only Division of Nephrology and Hypertension in [place], [place] [address] [place] [phone] Mare Arauz M.D., Ph.D. Stenosis Aortic Valve Acquired (Primary Dx) 11/27/2023 Clinical Communication Division of Nephrology and Hypertension in [place], [place] [address] [place] [phone] Mare Arauz M.D., Ph.D. Med Question (Priority 2) 11/27/2023 2:00 PM COMPUTER SCIENCES PROFESSOR External Outreach Division of Nephrology and Hypertension in [place], [place] [address] [place] [phone] Mare Arauz M.D., Ph.D. Congestive Heart Failure (HCC) (Primary Dx) 11/22/2023 Clinical Communication Department of Anticoagulation in [place], [place] [address] [place] [phone] Edna Gamble R.N. Anticoagulation 11/19/2023 Clinical Communication Department of Anticoagulation in [place], [place] [address] [place] [phone] Lexi Carson Anticoagulation (Unable to reach) 11/08/2023 Clinical Communication Division of Nephrology and Hypertension in [place], [place] [address] [place] [phone] Mare Arauz M.D., Ph.D. 11/02/2023 12:33 PM COMPUTER SCIENCES PROFESSOR - 11/02/2023 11:59 PM COMPUTER SCIENCES PROFESSOR Hospital Encounter Department of Laboratory Medicine in [address] [address] Kylah Crum M.D. Coronary Arterial Bypass Graft Status Post Personal History; Cardiac Surgery Status Post; Bypass Coronary Artery Graft Status Post; Prosthesis Aortic Valve; Diabetes Mellitus Type 2 (HCC) Discharge Disposition: Home or Self Care 11/02/2023 3:00 PM COMPUTER SCIENCES PROFESSOR Anticoagulation Visit Department of Anticoagulation in [place], [place] [address] [place] [phone] Kylah Crum M.D. Diabetes Mellitus Type 2 (HCC) (Primary Dx); Coronary Arterial Bypass Graft Status Post Personal History; Cardiac Surgery Status Post; Bypass Coronary Artery Graft Status Post; Prosthesis Aortic Valve; Retirement (Current) Anticoagulant Treatment; Monitoring For Therapeutic Drug Therapy 11/01/2023 Clinical Communication Department of Cardiovascular Medicine in [address] [address] Gudelia Soto M.D. 11/01/2023 Clinical Communication Department of Cardiovascular Surgery in [address] [address] Sarah Miller M.D., M.P.H. Med Question (Refills or stopping medications) 10/31/2023 Clinical Communication Department of Anticoagulation in [place], [place] [address] [place] [phone] Roberto Kwok, M.P.H., R.N. 10/31/2023 8:00 AM COMPUTER SCIENCES PROFESSOR External Outreach Division of Nephrology and Hypertension in [place], [place] [address] [place] [phone] Mare Arauz M.D., Ph.D. Chronic Kidney Disease (CKD), Stage 3b Glomerular Filtration Rate (GFR) 30 To 44 (HCC) (Primary Dx); Hypertension Essential Primary 10/29/2023 12:42 PM COMPUTER SCIENCES PROFESSOR - 10/29/2023 11:59 PM COMPUTER SCIENCES PROFESSOR Hospital Encounter Department of Laboratory Medicine in [address] [address] Kylah Crum M.D. Coronary Arterial Bypass Graft Status Post Personal History; Cardiac Surgery Status Post; Bypass Coronary Artery Graft Status Post; Prosthesis Aortic Valve; Diabetes Mellitus Type 2 (HCC); Jogger Operator (Current) Anticoagulant Treatment; Monitoring For Therapeutic Drug Therapy Discharge Disposition: Home or Self Care 10/29/2023 4:10 PM COMPUTER SCIENCES PROFESSOR Anticoagulation Visit Department of Anticoagulation in [place], [place] [address] [place] [phone] Kylah Crum M.D. Diabetes Mellitus Type 2 (HCC) (Primary Dx); Coronary Arterial Bypass Graft Status Post Personal History; Cardiac Surgery Status Post; Bypass Coronary Artery Graft Status Post; Prosthesis Aortic Valve; Retirement (Current) Anticoagulant Treatment; Monitoring For Therapeutic Drug Therapy 10/26/2023 10:50 AM COMPUTER SCIENCES PROFESSOR - 10/26/2023 11:59 PM COMPUTER SCIENCES PROFESSOR Hospital Encounter Department of Laboratory Medicine in [address] [address] Kylah Crum M.D. Coronary Arterial Bypass Graft Status Post Personal History; Cardiac Surgery Status Post; Bypass Coronary Artery Graft Status Post; Prosthesis Aortic Valve; Jogger Operator (Current) Anticoagulant Treatment; Monitoring For Therapeutic Drug Therapy Discharge Disposition: Home or Self Care 10/26/2023 11:30 AM COMPUTER SCIENCES PROFESSOR Anticoagulation Visit Department of Anticoagulation in [place], [place] [address] [place] [phone] Kylah Crum M.D. Diabetes Mellitus Type 2 (HCC) (Primary Dx); Coronary Arterial Bypass Graft Status Post Personal History; Cardiac Surgery Status Post; Bypass Coronary Artery Graft Status Post; Prosthesis Aortic Valve; Retirement (Current) Anticoagulant Treatment; Monitoring For Therapeutic Drug Therapy 10/22/2023 2:00 PM COMPUTER SCIENCES PROFESSOR Anticoagulation Visit Department of Anticoagulation in [place], [place] [address] [place] [address] Kylah Crum M.D. Prosthesis Aortic Valve (Primary Dx); Coronary Arterial Bypass Graft Status Post Personal History; Cardiac Surgery Status Post; Bypass Coronary Artery Graft Status Post; Retirement (Current) Anticoagulant Treatment; Monitoring For Therapeutic Drug Therapy; Diabetes Mellitus Type 2 (HCC) 10/22/2023 11:20 AM COMPUTER SCIENCES PROFESSOR - 10/22/2023 11:59 PM COMPUTER SCIENCES PROFESSOR Hospital Encounter Department of Laboratory Medicine in [address] [phone] Kylah Crum M.D. Coronary Arterial Bypass Graft Status Post Personal History; Cardiac Surgery Status Post; Bypass Coronary Artery Graft Status Post; Prosthesis Aortic Valve; Retirement (Current) Anticoagulant Treatment; Monitoring For Therapeutic Drug Therapy Discharge Disposition: Home or Self Care 10/17/2023 11:00 AM COMPUTER SCIENCES PROFESSOR - 10/17/2023 11:59 PM COMPUTER SCIENCES PROFESSOR Hospital Encounter Department of Laboratory Medicine in [address] [address] Kylah Crum M.D. Coronary Arterial Bypass Graft Status Post Personal History; Cardiac Surgery Status Post; Bypass Coronary Artery Graft Status Post; Prosthesis Aortic Valve; Retirement (Current) Anticoagulant Treatment; Monitoring For Therapeutic Drug Therapy Discharge Disposition: Home or Self Care 10/17/2023 2:00 PM COMPUTER SCIENCES PROFESSOR Anticoagulation Visit Department of Anticoagulation in [place], [place] [address] [place] [address] Kylah Crum M.D. Prosthesis Aortic Valve (Primary Dx); Coronary Arterial Bypass Graft Status Post Personal History; Cardiac Surgery Status Post; Bypass Coronary Artery Graft Status Post; Retirement (Current) Anticoagulant Treatment; Monitoring For Therapeutic Drug Therapy 10/16/2023 Orders Only [facility] Kylah Crum M.D. Screening Abdominal Aortic Aneurysm; Diabetes Mellitus Type 2 (HCC) 10/15/2023 Episode Changes Department of Cardiovascular Medicine in [place], [place] [address] [place] [address] Cony Calzada CEP 10/12/2023 10:50 AM COMPUTER SCIENCES PROFESSOR - 10/12/2023 11:59 PM COMPUTER SCIENCES PROFESSOR Hospital Encounter Department of Laboratory Medicine in [address] [phone] Kylah Crum M.D. Coronary Arterial Bypass Graft Status Post Personal History; Cardiac Surgery Status Post; Bypass Coronary Artery Graft Status Post; Prosthesis Aortic Valve; Jogger Operator (Current) Anticoagulant Treatment; Monitoring For Therapeutic Drug Therapy Discharge Disposition: Home or Self Care 10/12/2023 11:30 AM COMPUTER SCIENCES PROFESSOR Anticoagulation Visit Department of Anticoagulation in [place], [place] [address] [place] [address] Kylah Crum M.D. Jogger Operator (Current) Anticoagulant Treatment (Primary Dx); Coronary Arterial Bypass Graft Status Post Personal History; Cardiac Surgery Status Post; Bypass Coronary Artery Graft Status Post; Prosthesis Aortic Valve; Monitoring For Therapeutic Drug Therapy 10/08/2023 12:36 PM COMPUTER SCIENCES PROFESSOR - 10/08/2023 11:59 PM COMPUTER SCIENCES PROFESSOR Hospital Encounter Department of Laboratory Medicine in [address] [address] Kylah Crum M.D. Coronary Arterial Bypass Graft Status Post Personal History; Cardiac Surgery Status Post; Bypass Coronary Artery Graft Status Post; Prosthesis Aortic Valve; Retirement (Current) Anticoagulant Treatment; Monitoring For Therapeutic Drug Therapy Discharge Disposition: Home or Self Care 10/08/2023 3:00 PM COMPUTER SCIENCES PROFESSOR Anticoagulation Visit Department of Anticoagulation in [place], [place] [address] [place] [phone] Kylah Crum M.D. Jogger Operator (Current) Anticoagulant Treatment (Primary Dx); Coronary Arterial Bypass Graft Status Post Personal History; Cardiac Surgery Status Post; Bypass Coronary Artery Graft Status Post; Prosthesis Aortic Valve; Monitoring For Therapeutic Drug Therapy 10/05/2023 1:00 PM COMPUTER SCIENCES PROFESSOR Virtual Visit Department of Cardiovascular Surgery in [address] [phone] Mariama Monk, PIERRE, C.N.PJarrett Cardiac Surgery Status Post (Primary Dx); Coronary Arterial Bypass Graft Status Post Personal History; Prosthesis Aortic Valve; Retirement (Current) Anticoagulant Treatment 10/05/2023 11:00 AM COMPUTER SCIENCES PROFESSOR Anticoagulation Visit Department of Anticoagulation in [place], [place] [address] [place] [phone] Kylah Crum M.D. Retirement (Current) Anticoagulant Treatment (Primary Dx); Coronary Arterial Bypass Graft Status Post Personal History; Cardiac Surgery Status Post; Bypass Coronary Artery Graft Status Post; Prosthesis Aortic Valve; Monitoring For Therapeutic Drug Therapy 10/05/2023 10:20 AM COMPUTER SCIENCES PROFESSOR - 10/05/2023 11:59 PM COMPUTER SCIENCES PROFESSOR Hospital Encounter Department of Laboratory Medicine in [address] [phone] Kylah Crum M.D. Coronary Arterial Bypass Graft Status Post Personal History; Cardiac Surgery Status Post; Bypass Coronary Artery Graft Status Post; Prosthesis Aortic Valve; Retirement (Current) Anticoagulant Treatment; Monitoring For Therapeutic Drug Therapy Discharge Disposition: Home or Self Care 10/03/2023 1:30 PM COMPUTER SCIENCES PROFESSOR Telemedicine Department of Cardiovascular Surgery in [address] [phone] Laila Basurto P.A.-C. Yaw, Mariama J, MEASUREMENT DEPARTMENT CHIEF CLERK, CJarrettNJarrettPJarrett Cardiac Surgery Status Post (Primary Dx); Bypass Coronary Artery Graft Status Post; Prosthesis Aortic Valve; Coronary Arterial Bypass Graft Status Post Personal History; Coronary Artery Disease Without Angina Pectoris 10/02/2023 Clinical Communication Department of Family Medicine, [facility], in [place], [place] [address] [place] [address] Kylah Crum M.D. Results 10/02/2023 4:45 PM COMPUTER SCIENCES PROFESSOR Internal E-Consult Division of Nephrology and Hypertension in [place], [place] [address] [place] [phone] Pavan May M.D. Elevated Creatinine (Primary Dx); Failure Renal Acute (Acute Kidney Injury) (HCC) 10/01/2023 3:30 PM COMPUTER SCIENCES PROFESSOR Anticoagulation Visit Department of Anticoagulation in [place], [place] [address] [place] [phone] Kylah Crum M.D. Jogger Operator (Current) Anticoagulant Treatment (Primary Dx); Coronary Arterial Bypass Graft Status Post Personal History; Cardiac Surgery Status Post; Bypass Coronary Artery Graft Status Post; Prosthesis Aortic Valve; Monitoring For Therapeutic Drug Therapy 10/01/2023 11:51 AM COMPUTER SCIENCES PROFESSOR - 10/01/2023 11:59 PM COMPUTER SCIENCES PROFESSOR Hospital Encounter Department of Laboratory Medicine in [place], [place] [address] [place] [phone] Kylah Crum M.D. Chronic Kidney Disease Stage 4 Glomerular Filtration Rate 15-29 (HCC) Discharge Disposition: Home or Self Care 10/01/2023 11:50 AM COMPUTER SCIENCES PROFESSOR Hospital Encounter Department of Laboratory Medicine in [place], [place] [address] [place] [phone] Kylah Crum M.D. Coronary Arterial Bypass Graft Status Post Personal History; Cardiac Surgery Status Post; Bypass Coronary Artery Graft Status Post; Prosthesis Aortic Valve Discharge Disposition: Home or Self Care 10/01/2023 Clinical Communication Department of Anticoagulation in [place], [place] [address] [place] [phone] Ralf Peralta R.N. Anticoagulation (CCM enrollment) 10/01/2023 Clinical Communication Department of Anticoagulation in [place], [place] [address] [place] [address] Nidia Kuhn Anticoagulation (New enrollment) 10/01/2023 11:00 AM COMPUTER SCIENCES PROFESSOR Office Visit Department of Family Medicine, [facility], in [place], [place] [address] [place] [phone] Kylah Crum M.D. Chronic Kidney Disease Stage 4 Glomerular Filtration Rate 15-29 (HCC) (Primary Dx); Cardiac Surgery Status Post; Coronary Arterial Bypass Graft Status Post Personal History; Prosthesis Aortic Valve; Bypass Coronary Artery Graft Status Post; Diabetes Mellitus Type 2 (HCC); Atrial Fibrillation Unspecified (HCC); Hypertension And Chronic Kidney Disease Stage 1 To 4; Hyperlipidemia; Anemia Iron Deficiency from Last 3 Months Allergies No known [...] in conjunction with 5 mg tablets. Take 38dmr1ommj,17.5mgx7d ays, 08its5ytkj,12.5mgx7d ays,58oaf4locy.. 42 tablet 0 12/26/2023 4 Active predniSONE (DELTASONE) 5 mg tablet Take 1.5 tablets (7.5 mg total) by mouth daily for 7 days, THEN 1 tablet (5 mg total) daily for 7 days, THEN 0.5 tablets (2.5 mg total) daily for 7 days. To be taken in conjunction with 10 mg tablets. Take 42jis6nwbu,17.5mgx7d ays,74y9jaod,12.5x7d ays,29qtu8fdus. 21 tablet 0 12/26/2023 4 Active amiodarone [...] Active Problems Problem Noted Date Diagnosed Date Jogger Operator (Current) Anticoagulant Treatment 09/13 Bypass Coronary Artery Graft Status Post 023 Cardiac Surgery Status Post 09/24/2023 Effusion Pleural 09/24/2023 Device Cardiac Status Post 09/23/2023 Overview: Previously placed loop recorder Therapy Jogger Operator Antiplatelet 09/22/2023 Coronary Arterial Bypass Graft Status [...] Comments Blood Pressure 111/68 12/24/2023 1:40 PM COMPUTER SCIENCES PROFESSOR Pulse 86 12/24/2023 1:40 PM COMPUTER SCIENCES PROFESSOR Temperature 36.1 ??C (96.9 ??F) 10/01/2023 1 1:08 AM COMPUTER SCIENCES PROFESSOR Respiratory Rate 20 10/01/2023 11:0 8 AM COMPUTER SCIENCES PROFESSOR Oxygen Saturation 98% 10/01/2023 11: 08 AM COMPUTER SCIENCES PROFESSOR Inhaled Oxygen Concentration - - Weight 85.2 kg (187 lb 13.3 oz) 12/25/2023 2:40 PM COMPUTER SCIENCES PROFESSOR Height 169.5 cm (5' 6.73) 12/25/2023 2:40 PM CS T Body Mass Index 29.66 12/25/2023 2:40 PM COMPUTER SCIENCES PROFESSOR Plan of Treatment Upcoming Encounters Date Type Department Care Team (Late st Contact Info) Description 01/04/2024 10:30 AM COMPUTER SCIENCES PROFESSOR Comprehensive Visit Division of Hematology in [place], [place] [address] [place] [phone] Brandy Real M.D., M.B.A. [address] [place] [phone] Medical Devices Implanted Type Area Dental Laboratory Technician Apprentice Device Identifier Shelf Expiration Date Model / Serial / Lot Vlv Aort Cnf [facility] 23 - [id number] - [id number] Implanted:Qty: 1 on 09/19/2023 by Sarah Miller M.D., M.P.H. at [facility] Cardiac Valve Prosthesis N/A: Aortic Valve Artivion (Prev. [employer]) 2028 ONXACE-2 / [id number] / Description:MRI conditional up to 3T, normal mode, per laboratory animal care veterinarian. [email or web address] AFK [place] Surg Tfln 1x6 - [id number] Implanted:Qty: 1 on 09/19/2023 by Sarah Miller M.D., M.P.H. at [facility] Hardware e.g. pins/screws/ro ds N/A: Chest [employer] [id number] / / Medtronic Linq-05/05/2019 Implanted:04/13 by Chet Badillo M.D., Ph.D. (Quantity not on file) Implantable Loop Recorder Chest Medtronic [id number] / [id number] / Description:MR Conditional 1 .5T and 3T - First level operating mode. - Jayro Abernathy 12/25/2023 Procedures Procedure Name Priority Date/Time Associated Diagnosis Comments MR CARDIAC WITHOUT AND WITH IV CONTRAST RAD - Routine (most inpatients and all outpatients) 12/25/2023 4:05 PM COMPUTER SCIENCES PROFESSOR Pericarditis Constrictive (HCC) DX CHEST AP OR PA AND LATERAL 2 VIEWS RAD - Routine (most inpatients and all outpatients) 12/24/2023 10:42 AM COMPUTER SCIENCES PROFESSOR Stenosis Aortic Valve Acquired ECG Routine 12/24/2023 10:12 AM COMPUTER SCIENCES PROFESSOR Stenosis Aortic Valve Acquired C-REACTIVE PROTEIN (CRP), S/P Routine 12/24/2023 9:44 AM COMPUTER SCIENCES PROFESSOR Pericarditis Constrictive (HCC) SODIUM, S/P Routine 12/24/2023 9:44 AM COMPUTER SCIENCES PROFESSOR Stenosis Aortic Valve Acquired POTASSIUM, S/P Routine 12/24/2023 9:44 AM COMPUTER SCIENCES PROFESSOR Stenosis Aortic Valve Acquired NT-PRO B-TYPE NATRIURETIC PEPTIDE (BNP), S Routine 12/24/2023 9:44 AM COMPUTER SCIENCES PROFESSOR Stenosis Aortic Valve Acquired LIPID PANEL, S Routine 12/24/2023 9:44 AM COMPUTER SCIENCES PROFESSOR Stenosis Aortic Valve Acquired GLUCOSE, FASTING, S/P Routine 12/24/2023 9:44 AM COMPUTER SCIENCES PROFESSOR Stenosis Aortic Valve Acquired CREATININE WITH EGFR, S/P Routine 12/24/2023 9:44 AM COMPUTER SCIENCES PROFESSOR Stenosis Aortic Valve Acquired CBC WITH DIFFERENTIAL, B Routine 12/24/2023 9:44 AM COMPUTER SCIENCES PROFESSOR Stenosis Aortic Valve Acquired ALBUMIN, S/P Routine 12/24/2023 9:44 AM COMPUTER SCIENCES PROFESSOR Stenosis Aortic Valve Acquired PROTHROMBIN TIME (PT), P Routine 12/24/2023 9:43 AM COMPUTER SCIENCES PROFESSOR Stenosis Aortic Valve Acquired SEDIMENTATION RATE, B Routine 12/24/2023 9:39 AM COMPUTER SCIENCES PROFESSOR Pericarditis Constrictive (HCC) (TTE) 2D LIMITED WITH COLOR AND DOPPLER Routine 12/24/2023 8:52 AM COMPUTER SCIENCES PROFESSOR Stenosis Aortic Valve Acquired OUTSIDE DX CHEST Routine 11/11/2023 8:30 AM COMPUTER SCIENCES PROFESSOR OUTSIDE DX CHEST Routine 11/08/2023 3:25 PM COMPUTER SCIENCES PROFESSOR INR REFLEX, POCT, B Routine 11/02/2023 12:42 PM COMPUTER SCIENCES PROFESSOR Coronary Arterial Bypass Graft Status Post Personal History Cardiac Surgery Status Post Bypass Coronary Artery Graft Status Post Prosthesis Aortic Valve Diabetes Mellitus Type 2 (HCC) OUTSIDE DX CHEST Routine 10/31/2023 9:00 AM COMPUTER SCIENCES PROFESSOR INR REFLEX, POCT, B Routine 10/29/2023 12:50 PM COMPUTER SCIENCES PROFESSOR Coronary Arterial Bypass Graft Status Post Personal History Cardiac Surgery Status Post Bypass Coronary Artery Graft Status Post Prosthesis Aortic Valve Diabetes Mellitus Type 2 (HCC) Retirement (Current) Anticoagulant Treatment Monitoring For Therapeutic Drug Therapy INR REFLEX, POCT, B Routine 10/26/2023 11:36 AM COMPUTER SCIENCES PROFESSOR Coronary Arterial Bypass Graft Status Post Personal History Cardiac Surgery Status Post Bypass Coronary Artery Graft Status Post Prosthesis Aortic Valve Jogger Operator (Current) Anticoagulant Treatment Monitoring For Therapeutic Drug Therapy INR REFLEX, POCT, B Routine 10/22/2023 11:32 AM COMPUTER SCIENCES PROFESSOR Coronary Arterial Bypass Graft Status Post Personal History Cardiac Surgery Status Post Bypass Coronary Artery Graft Status Post Prosthesis Aortic Valve Retirement (Current) Anticoagulant Treatment Monitoring For Therapeutic Drug Therapy INR REFLEX, POCT, B Routine 10/17/2023 11:22 AM COMPUTER SCIENCES PROFESSOR Coronary Arterial Bypass Graft Status Post Personal History Cardiac Surgery Status Post Bypass Coronary Artery Graft Status Post Prosthesis Aortic Valve Retirement (Current) Anticoagulant Treatment Monitoring For Therapeutic Drug Therapy INR REFLEX, POCT, B Routine 10/12/2023 11:03 AM COMPUTER SCIENCES PROFESSOR Coronary Arterial Bypass Graft Status Post Personal History Cardiac Surgery Status Post Bypass Coronary Artery Graft Status Post Prosthesis Aortic Valve Retirement (Current) Anticoagulant Treatment Monitoring For Therapeutic Drug Therapy INR REFLEX, POCT, B Routine 10/08/2023 12:52 PM COMPUTER SCIENCES PROFESSOR Coronary Arterial Bypass Graft Status Post Personal History Cardiac Surgery Status Post Bypass Coronary Artery Graft Status Post Prosthesis Aortic Valve Retirement (Current) Anticoagulant Treatment Monitoring For Therapeutic Drug Therapy INR REFLEX, POCT, B Routine 10/05/2023 10:35 AM COMPUTER SCIENCES PROFESSOR Coronary Arterial Bypass Graft Status Post Personal History Cardiac Surgery Status Post Bypass Coronary Artery Graft Status Post Prosthesis Aortic Valve Retirement (Current) Anticoagulant Treatment Monitoring For Therapeutic Drug Therapy INR REFLEX, POCT, B Routine 10/01/2023 12:02 PM COMPUTER SCIENCES PROFESSOR Coronary Arterial Bypass Graft Status Post Personal History Cardiac Surgery Status Post Bypass Coronary Artery Graft Status Post Prosthesis Aortic Valve BASIC METABOLIC PANEL, S/P Routine 10/01/2023 12:02 PM COMPUTER SCIENCES PROFESSOR Chronic Kidney Disease Stage 4 Glomerular Filtration Rate 15-29 (HCC) from Last 3 Months Results * MR Cardiac without and with IV Contrast (12/25/2023 4:05 PM COMPUTER SCIENCES PROFESSOR) Anatomical Region Laterality Modality Cardiac, Cardiovascular RST LOS, Thoracic ARZ LOS, Cardiovascular FLA LOS N/A Magnetic Resonance Impressions 12/25/2023 5:08 PM COMPUTER SCIENCES PROFESSOR 1. 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 2. ??Small fibrinous loculated pericardial effusion, predominantly along the lateral and inferior aspects of the left ventricle. 3. ??Normal biventricular chamber size and function. 4. ??Large bilateral pleural effusions. Small amount of abdominal ascites. Narrative 12/25/2023 5:08 PM COMPUTER SCIENCES PROFESSOR EXAM: ??MR CARDIAC WITHOUT AND WITH IV [...] the inferior RV insertion points (series 28, [id number]). RIGHT VENTRICLE: Normal right ventricular chamber size [...] and Lateral 2 Views (12/24/2023 10:42 AM COMPUTER SCIENCES PROFESSOR) Anatomical Region Laterality Modality Chest, Thoracic RST LOS, Tho racic ARZ LOS, Thoracic FLA LOS N/A Digital Radiography Impressions 12/24/2023 12:00 PM COMPUTER SCIENCES PROFESSOR Small bilateral pleural effusions are decreased. Improved aeration of the left lung base with decreased previous probable subsegmental atelectasis. No new consolidation. No pneumothorax. Cardiac silhouette is mildly enlarged, unchanged. Prosthetic aortic valve. Intact sternotomy wires. Loop recorder in soft tissues of the anterior chest wall. Narrative 12/24/2023 12:00 PM COMPUTER SCIENCES PROFESSOR EXAM: ??DX CHEST AP OR PA AND [...] * ECG 12 Lead (12/24/2023 10:12 AM COMPUTER SCIENCES PROFESSOR) Ventricular Rate ECG/Min 83 BPM MUSE TX Interval 138 ms MUSE QRSD Interval 76 ms MUSE QT Interval 400 ms MUSE QTC Interval 470 ms MUSE P Beatrice 55 degrees MUSE R Beatrice 61 degrees MUSE T Wave Beatrice 49 degrees MUSE 12/24/2023 10:1 2 AM COMPUTER SCIENCES PROFESSOR 12/24/2023 10:21 AM COMPUTER SCIENCES PROFESSOR Impressions MUSE - 12/24/2023 10:21 AM COMPUTER SCIENCES PROFESSOR Poor data quality Normal sinus rhythm Low [...] NA * Lipid Panel (12/24/2023 9:44 AM COMPUTER SCIENCES PROFESSOR) Triglycerides 68 mg/dL 12/24/2023 1:00 PM COMPUTER SCIENCES PROFESSOR DTL Comment: ----REFERENCE VALUE---- Normal: <150 mg/dL Borderline High: 150-199 mg/dL High: 200-499 mg/dL Very High: > or =500 mg/dL Cholesterol, Total 107 mg/dL 2023 1:00 PM COMPUTER SCIENCES PROFESSOR DTL Comment: ----REFERENCE VALUE---- Desirable: < 200 mg/dL Borderline High: 200 - 239 mg/dL High: > or = 240 mg/dL Cholesterol, LDL, Calculated 50 mg/dL 12/24/2023 1:00 PM COMPUTER SCIENCES PROFESSOR DTL Comment: ----REFERENCE VALUE---- Desirable: <100 mg/dL Above Desirable: 100-129 mg/dL Borderline High: 130-159 mg/dL High: 160-189 mg/dL Very High: >=190 mg/dL ----ADDITIONAL INFORMATION---- LDL cholesterol calculated using the Iglesias/NIH equation. Cholesterol, HDL, S 42 >=40 mg/dL 12/24/2023 1:00 PM COMPUTER SCIENCES PROFESSOR DTL Cholesterol, Non-HDL, Calculated 65 mg/dL 12/24/2023 1:00 PM COMPUTER SCIENCES PROFESSOR DTL Comment: ----REFERENCE VALUE---- Desirable: <130 mg/dL Above Desirable: 130-159 mg/dL Borderline High: 160-189 mg/dL High: 190-219 mg/dL Very High: > or =220 mg/dL Fasting (8 HR or more) yes 12/24/2023 10:18 AM COMPUTER SCIENCES PROFESSOR DTL Blood (Blood, Venous) 12/24/2023 9:44 AM COMPUTER SCIENCES PROFESSOR 12/24/2023 10:18 AM COMPUTER SCIENCES PROFESSOR Gudelia Soto M.D. LAB BLOOD ADD-ON [facility] [address] [place] [address] * (ABNORMAL) NT-Pro B-Type Natriuretic Peptide (BNP) (12/24/2023 9:44 AM COMPUTER SCIENCES PROFESSOR) [facility] NT-Pro BNP 5208(H) <=540 pg/mL 12/24/2023 1:00 PM COMPUTER SCIENCES PROFESSOR DTL Comment: NT-proBNP values less than 300 [...] failure. Blood (Blood, Venous) 12/24/2023 9:44 AM COMPUTER SCIENCES PROFESSOR 12/24/2023 10:18 AM COMPUTER SCIENCES PROFESSOR Gudelia Soto M.D. LAB BLOOD ADD-ON [facility] [address] [place] [address] * (ABNORMAL) CBC with Differential, Blood (12/24/2023 9:44 AM COMPUTER SCIENCES PROFESSOR) [facility] Hemoglobin 10.8(L) 13.2 - 16.6 g/dL 12/24/2023 10:39 AM COMPUTER SCIENCES PROFESSOR DTL Hematocrit 35.4(L) 38.3 - 48.6 % 12/24/2023 10:39 AM COMPUTER SCIENCES PROFESSOR DTL Erythrocytes 4.01(L) 4.35 - 5.65 x10(12)/L 12/24/2023 10:39 AM COMPUTER SCIENCES PROFESSOR DTL MCV 88.3 78.2 - 97.9 fL 12/24/2023 10:39 AM COMPUTER SCIENCES PROFESSOR DTL RBC Distrib Width 15.0(H) 11.8 - 14.5 % 12/24/2023 10:39 AM COMPUTER SCIENCES PROFESSOR DTL Platelet Count 187 135 - 317 x10(9)/L 12/24/2023 10:39 AM COMPUTER SCIENCES PROFESSOR DTL Leukocytes 5.5 3.4 - 9.6 x10(9)/L 12/24/2023 10:39 AM COMPUTER SCIENCES PROFESSOR DTL Neutrophils 3.96 1.56 - 6.45 x10(9)/L 12/24/2023 10:39 AM COMPUTER SCIENCES PROFESSOR PM Lymphocytes 0.90(L) 0.95 - 3.07 x10(9)/L 12/24/2023 10:39 AM COMPUTER SCIENCES PROFESSOR DTL Monocytes 0.56 0.26 - 0.81 x10(9)/L 12/24/2023 10:39 AM COMPUTER SCIENCES PROFESSOR DTL Eosinophils 0.07 0.03 - 0.48 x10(9)/L 12/24/2023 10:39 AM COMPUTER SCIENCES PROFESSOR DTL Basophils 0.03 0.01 - 0.08 x10(9)/L 12/24/2023 10:39 AM COMPUTER SCIENCES PROFESSOR DTL Blood (Blood, Venous) 12/24/2023 9:44 AM COMPUTER SCIENCES PROFESSOR 12/24/2023 10:07 AM COMPUTER SCIENCES PROFESSOR Gudelia Soto M.D. LAB BLOOD ADD-ON [facility] [address] [place] [address], [facility] 200 [place], [place] [id number] [place] [address] [address] [place] [address] * (ABNORMAL) CRP (C-Reactive Protein) (12/24/2023 9:44 AM COMPUTER SCIENCES PROFESSOR) C-Reactive Protein (CRP), S 10.0(H) <5.0 mg/L 12/24/2023 3:48 PM COMPUTER SCIENCES PROFESSOR DTL Blood (Blood, Venous) 12/24/2023 9:44 AM COMPUTER SCIENCES PROFESSOR 12/24/2023 1:18 PM COMPUTER SCIENCES PROFESSOR Gudelia Soto M.D. LAB BLOOD ADD-ON [facility] [address] [place], [place] [address] 200 [place] [address] * Sodium (12/24/2023 9:44 AM COMPUTER SCIENCES PROFESSOR) Sodium, S 143 135 - 145 mmol/L 12/24/2023 1:00 PM COMPUTER SCIENCES PROFESSOR DTL Blood (Blood, Venous) 12/24/2023 9:44 AM COMPUTER SCIENCES PROFESSOR 12/24/2023 10:18 AM COMPUTER SCIENCES PROFESSOR Gudelia Soto M.D. LAB BLOOD ADD-ON [facility] 200 [place], [place] [address] 200 [place] [address] * Potassium (12/24/2023 9:44 AM COMPUTER SCIENCES PROFESSOR) Potassium, S 4.1 3.6 - 5.2 mmol/L 12/24/2023 1:00 PM COMPUTER SCIENCES PROFESSOR DTL Blood (Blood, Venous) 12/24/2023 9:44 AM COMPUTER SCIENCES PROFESSOR 12/24/2023 10:18 AM COMPUTER SCIENCES PROFESSOR Gudelia Soto M.D. LAB BLOOD ADD-ON [facility] 200 [place], [place] [address] 200 [place] [address] * (ABNORMAL) Glucose, Fasting (12/24/2023 9:44 AM COMPUTER SCIENCES PROFESSOR) Glucose, P 112(H) 70 - 100 mg/dL 12/24/2023 10:58 AM COMPUTER SCIENCES PROFESSOR DTL Last Intake 15 hr 12/24/2023 10:22 AM COMPUTER SCIENCES PROFESSOR DTL Blood (Blood, Venous) 12/24/2023 9:44 AM COMPUTER SCIENCES PROFESSOR 12/24/2023 10:22 AM COMPUTER SCIENCES PROFESSOR Gudelia Soto M.D. LAB BLOOD NON ADD-ON [facility] [address] [place] [address], [facility] 200 [place] [address] * (ABNORMAL) Creatinine with Estimated GFR (12/24/2023 9:44 AM COMPUTER SCIENCES PROFESSOR) Creatinine 2.68(H) 0.74 - 1.35 mg/dL 12/24/2023 1:00 PM COMPUTER SCIENCES PROFESSOR DTL Estimated GFR (eGFR) 25(L) >=60 mL/min/BSA 12/24/2023 1:00 PM COMPUTER SCIENCES PROFESSOR DTL Comment: Estimated GFR calculated using the 2020 CKD_EPI creatinine equation. Blood (Blood, Venous) 12/24/2023 9:44 AM COMPUTER SCIENCES PROFESSOR 12/24/2023 10:18 AM COMPUTER SCIENCES PROFESSOR Gudelia Soto M.D. LAB BLOOD ADD-ON Performing Organization Address City/[facility]/ZIP Co de Phone Number [facility] [address] [place] [address], [facility] 200 [place] [address] * Albumin (12/24/2023 9:44 AM COMPUTER SCIENCES PROFESSOR) Pathologist [facility] Albumin, S 3.7 3.5 - 5.0 g/dL 12/24/2023 1:00 PM COMPUTER SCIENCES PROFESSOR DT Blood (Blood, Venous) 12/24/2023 9:44 AM COMPUTER SCIENCES PROFESSOR 12/24/2023 10:18 AM COMPUTER SCIENCES PROFESSOR Gudelia Soto M.D. LAB BLOOD ADD-ON [facility] [address] [place] [address], [facility] 200 [place] [address] * (ABNORMAL) Prothrombin Time (PT) (12/24/2023 9:43 AM COMPUTER SCIENCES PROFESSOR) Pathologist [facility] Prothrombin Time, P 31.8(H) 9.4 - 12.5 sec 12/24/2023 10:34 AM COMPUTER SCIENCES PROFESSOR DTL INR 2.8 0.9 - 1.1 12/24/2023 10:34 AM COMPUTER SCIENCES PROFESSOR DTL Comment: ----ADDITIONAL INFORMATION---- Standard intensity warfarin therapeutic range: 2.0 to 3.0 ?? High intensity warfarin therapeutic range: 2.5 to 3.5 Blood (Blood, Venous) 12/24/2023 9:43 AM COMPUTER SCIENCES PROFESSOR 12/24/2023 10:08 AM COMPUTER SCIENCES PROFESSOR Gudelia Soto M.D. LAB BLOOD ADD-ON Performing Organization Address City/[facility]/[place] [address] * (ABNORMAL) Sedimentation Rate (12/24/2023 9:39 AM COMPUTER SCIENCES PROFESSOR) Sedimentation Rate, B 29(H) 3 - 28 mm/h 12/24/2023 1:29 PM COMPUTER SCIENCES PROFESSOR DTL Blood (Blood, Venous) 12/24/2023 9:39 AM COMPUTER SCIENCES PROFESSOR 12/24/2023 12:40 PM COMPUTER SCIENCES PROFESSOR Gudelia Soto M.D. LAB BLOOD ADD-ON Performing Organization Address City/[facility] [place] [address] * (TTE) 2D LIMITED WITH COLOR AND DOPPLER (12/24/2023 8:52 AM COMPUTER SCIENCES PROFESSOR) Ejection Fraction 60 MC CV EIMS LV [...] Region Laterality Modality Echocardiography 12/24/2023 7:37 AM COMPUTER SCIENCES PROFESSOR Impressions 12/24/2023 10:57 AM COMPUTER SCIENCES PROFESSOR suggestive of pericardial disease. See comments. 2. Status post 23 mm On-X mechanical aortic valve prosthesis, CABG x1, PVI, and DAHIANA amputation (19-SEP-2023, [place]). 3. Normal left ventricular chamber size, calculated [...] CABG x1, PVI, and DAHIANA amputation (19-SEP-2023, [place]). Echocardiogram performed per left ventricular function protocol [...] the Order-Level Documents. Narrative 12/24/2023 10:57 AM COMPUTER SCIENCES PROFESSOR For the complete report, see the Order-Level [...] prosthesis, CABG x1,PVI, and DAHIANA amputation (19-SEP-2023, [place]). 3. Normal left ventricular chamber size, calculated [...] prosthesis, CABG x1, PVI,and DAHIANA amputation (19-SEP-2023, [place]). Echocardiogram performed per leftventricular function protocol + [...] 1V PORTABLE-Outside Chest Xray (11/11/2023 8:30 AM COMPUTER SCIENCES PROFESSOR) Only the most recent of3 resultswithin the time period is included. Narrative IIMS - 11/11/2023 1:45 PM COMPUTER SCIENCES PROFESSOR This order has been created and auto-finalized to support the import of outside images. If available, original interpretation can be found on the Media Tab in Chart Review, in Document Viewer, or as an image in QREADS. If a re-interpretation or overread is required please follow defined workflow. ?? Provider Not In System IMG DIAGNOSTIC IM AGING PROCEDURES [facility] NA * INR Reflex, POCT, Blood (11/02/2023 12:42 PM COMPUTER SCIENCES PROFESSOR) Only the most recent of9 resultswithin the time period is included. INR Reflex, POCT, B 3.6 11/02/2023 12:41 PM COMPUTER SCIENCES PROFESSOR FB60 Comment: ----ADDITIONAL INFORMATION---- Standard intensity warfarin therapeutic range: 2.0 to 3.0 ?? High intensity warfarin therapeutic range: 2.5 to 3.5 Blood (Blood, Capillary) 11/02/2023 12:42 PM COMPUTER SCIENCES PROFESSOR 11/02/2023 12:41 PM COMPUTER SCIENCES PROFESSOR Kylah Crum M.D. LAB POCT ORDERABLES - DEVICE [facility] [address] [place] [address], [place] FB60 [facility] [address] [place] [address] * (ABNORMAL) Basic Metabolic Panel (10/01/2023 12:02 PM COMPUTER SCIENCES PROFESSOR) Potassium, P 4.5 3.6 - 5.2 mmol/L 10/01/2023 4:33 PM COMPUTER SCIENCES PROFESSOR OWAT Sodium, P 137 135 - 145 mmol/L 10/01/2023 4:33 PM COMPUTER SCIENCES PROFESSOR OWAT Chloride, P 99 98 - 107 mmol/L 10/01/2023 4:33 PM COMPUTER SCIENCES PROFESSOR OWAT Bicarbonate, P 24 22 - 29 mmol/L 10/01/2023 4:33 PM COMPUTER SCIENCES PROFESSOR OWAT Anion Gap, P 14 7 - 15 10/01/2023 4:33 PM COMPUTER SCIENCES PROFESSOR OWAT BUN (Blood Urea Nitrogen), P 34(H) 8 - 24 mg/dL 10/01/2023 4:33 PM COMPUTER SCIENCES PROFESSOR OWAT Creatinine 2.36(H) 0.74 - 1.35 mg/dL 10/01/2023 4:33 PM COMPUTER SCIENCES PROFESSOR OWAT Estimated GFR (eGFR) 29(L) >=60 mL/min/BSA 10/01/2023 4:33 PM COMPUTER SCIENCES PROFESSOR OWAT Comment: Estimated GFR calculated using the 2020 CKD_EPI creatinine equation. Calcium, Total, P 8.7(L) 8.8 - 10.2 mg/dL 10/01/2023 4:33 PM COMPUTER SCIENCES PROFESSOR OWAT Glucose, P 222(H) 70 - 140 mg/dL 10/01/2023 4:33 PM COMPUTER SCIENCES PROFESSOR OWAT Blood (Blood, Venous) 10/01/2023 12:02 PM COMPUTER SCIENCES PROFESSOR 10/01/2023 3:43 PM COMPUTER SCIENCES PROFESSOR Kylah Crum M.D. LAB BLOOD ADD-ON [facility] [address] [place] [address], [place] [employer] [facility] [address] [place] [address] from Last 3 Months Advance Directives For more information, please contact: [phone] Latest Code Status on File Code Status [...] Answer Comments Full Code: Discussed Care Teams Cardiac Catheterization Technician Relationship Specialty Start Date End Date Kylah Crum M.D. [address] [place] [phone] PCP - General Family Medicine 09/28/23
--- OUTSIDE RECORDS SUMMARY | 2023-12-30 07:21 | XMS_ITS | Encounter Summary ---
Author Name Unknown Organization [facility] Address [address] [place] [address] Care Team Providers Care Burglar Alarm Operator Name Role Phone Kylah Crum M.D. Primary Care Provider Encounter Details Date Type Department Care Team (Latest Contact Info) Description 12/27/2023 Clinical Communication Department of Cardiovascular Medicine in [place], [place] [address] [place] [address] Eneida Loya, RJarrettNJarrett [address] [place] [address] Social History Tobacco Use Types Packs/Day Years [...] encounter Miscellaneous Notes * Telephone Encounter - Eneida Loya R.N. - 12/27/2023 10:50 AM CUSTOM GRINDER Information Discussed Phone call placed to Mr. Harris to discuss the plan moving forward as laid out by Dr. Soto. We discussed that she would like him to start prednisone 20 mg and to taper by 2.5 mg weekly until he'sdown to 10 mg. Once at 10 mg, we will have his labs checked and if his CRP remains normal he can continue the taper and reduce the dose of prednisone by 1 mg every 2 weeks until off. He will remain on the 0.3 mg of colchicine for now and we will have his renal function checked when he reaches the 10 mg dose of prednisone. Mr. Harris was in agreement with the plan and will let us know if he has any questions. PLAN Disposition/Recommendation: self-care is appropriate at this time, patient encouraged to call back with questions Information/Education: patient/caller able to teach back Caller agreeable to plan of care: yes The following references were used: nursing clinical judgement OM GRINDER documented in this encounter Plan of Treatment Upcoming Encounters Date Type Department Care Team (Late st Contact Info) Description 01/04/2024 10:30 AM CUSTOM GRINDER Comprehensive Visit Division of Hematology in [place], [place] [address] [place] [address] Brandy Real M.D., M.B.A. [address] [place] [address] documented as of this encounter Visit Diagnoses Not on filedocumented in this encounter Additional Health Concerns Assessment Noted Time PHQ-9 Depression Total Score: 1 09/10/20 23 2:06 PM CDT documented as of this encounter Care Teams Burglar Alarm Operator Relationship Specialty Start Date End Date Kylah Crum M.D. [address] [place] [phone] PCP - General Family Medicine 09/28/23 documented as of this encounter
--- OUTSIDE RECORDS SUMMARY | 2023-12-30 07:22 | XMS_ITS | Encounter Summary ---
Author Name Unknown Organization [facility] Address [address] [place] [address] Care Team Providers Care Trauma Director Name Role Phone Kylah Crum M.D. Primary Care Provider Reason for Referral * Outpatient (Routine) - Closed Specialty Diagnoses / Procedures Referred By Contact Referred To Contact Cardiovascular Diseases / Cardiovascular Disease Diagnoses Stenosis Aortic Valve Acquired Mare Arauz M.D., Ph.D. [address] [place] [phone] [facility] Referral ID Status Reason Start Date Expiration Date Visits Re quested Visits Authorized [id number] Closed 11/27/2023 11/26/2024 1 1 ASONIC TESTER Encounter Details Date Type Department Care Team (Late st Contact Info) Description 11/27/2023 Orders Only Division of Nephrology and Hypertension in [place], [place] [address] [place] [phone] Mare Arauz M.D., Ph.D. [address] [place] [phone] Stenosis Aortic Valve Acquired (Primary Dx) Social [...] your living situation today? I have a [facility] to live 08/29/2023 Sex and Gender Information Value Date Recorded Sex Assigned at Male 08/29/2023 11:06 AM CDT Gender Identity Male 08/29/2023 11:06 AM CDT Sexual Orientation Straight 08/29/2023 11 :06 AM CDT documented as of this encounter Plan of Treatment Upcoming Encounters Date Type Department Care Team (Late st Contact Info) Description 01/04/2024 10:30 AM ULTRASONIC TESTER Comprehensive Visit Division of Hematology in [place], [place] [address] [place] [address] Brandy Real M.D., M.B.A. [address] [place] [address] Scheduled Referrals Name Type Priority Associated Diagnoses [...] documented as of this encounter Care Teams Trauma Director Relationship Specialty Start Date End Date Kylah Crum M.D. [address] [place] [phone] PCP - General Family Medicine 09/28/23 documented as of this encounter
--- OUTSIDE RECORDS SUMMARY | 2023-12-30 07:22 | XMS_ITS | Encounter Summary ---
Author Name Unknown Organization [facility] Address [address] [place] [address] Care Team Providers Care Rotating Equipment Specialist Name Role Phone Kylah Crum M.D. Primary Care Provider Reason for Visit * Reason Onset Date Comments Triage 11/28/2023 Encounter Details Date Type Department Care Team (Latest Contact Info) Description 11/28/2023 Clinical Communication Department of Cardiovascular Medicine in [place], [place] [address] [place] [address] Bethany Downs, RJarrettNJarrett [address] [place] [address] Triage Social History Tobacco Use Types Packs/Day [...] Bethany Downs R.N. - 11/28/2023 8:18 AM FAMILY CASEWORKER Pre-appointment valve clinic triage/record review. The following [...] schedule with Dr. Felipe Soto if possible LY CASEWORKER documented in this encounter Plan of Treatment Upcoming Encounters Date Type Department Care Team (Late st Contact Info) Description 01/04/2024 10:30 AM FAMILY CASEWORKER Comprehensive Visit Division of Hematology in [place], [place] [address] [place] [address] Brandy Real M.D., M.B.A. [address] [place] [phone] documented as of this encounter Visit Diagnoses Not on filedocumented in this encounter Additional Health Concerns Assessment Noted Time PHQ-9 Depression Total Score: 1 09/10/20 23 2:06 PM CDT documented as of this encounter Care Teams Rotating Equipment Specialist Relationship Specialty Start Date End Date Kylah Crum M.D. [address] [place] [phone] PCP - General Family Medicine 09/28/23 documented as of this encounter
--- OUTSIDE RECORDS SUMMARY | 2023-12-30 07:22 | XMS_ITS | Encounter Summary ---
Author Name Unknown Organization [facility] Address [address] [place] [address] Care Team Providers Care Digital Media Producer Name Role Phone Kylah Crum M.D. Primary Care Provider Encounter Details Date Type Department Care Team (Latest Contact Info) Description 10/31/2023 Clinical Communication Department of Anticoagulation in [place], [place] [address] [place] [address] Roberto Kwok, M.P.H., R.N. Social History Tobacco [...] your living situation today? I have a [facility] place to live 08/29/2023 Sex and Gender Information Value Date Recorded Sex Assigned at Male 08/29/2023 11:06 AM CDT Gender Identity Male 08/29/2023 11:06 AM CDT Sexual Orientation Straight 08/29/2023 11 :06 AM CDT documented as of this encounter Miscellaneous Notes * Telephone Encounter - Kelsey Renee, Pharm.D., R.Ph. - 10/31/2023 1:01 PM CERTIFIED SHORTHAND REPORTER The patient needs an Rx sent. It appears he is done with amiodarone. IFIED SHORTHAND REPORTER documented in this encounter Plan of Treatment Upcoming Encounters Date Type Department Care Team (Late st Contact Info) Description 01/04/2024 10:30 AM CERTIFIED SHORTHAND REPORTER Comprehensive Visit Division of Hematology in [place], [place] [address] [place] [address] Brandy Real M.D., M.B.A. 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 [address] [place] [phone] PCP - General Family Medicine 09/28/23 documented as of this encounter
--- OUTSIDE RECORDS SUMMARY | 2023-12-30 07:22 | XMS_ITS | Encounter Summary ---
Author Name Unknown Organization [facility] Address [address] [place] [address] Care Team Providers Care Gis Web Developer Name Role Phone Kylah Crum M.D. Primary Care Provider [phone] Reason for Visit * Reason Onset Date Comments Anticoagulation 11/19/2023 Unable to reach Encounter Details Date Type Department Care Team (Latest Contact Info) Description 11/19/2023 Clinical Communication Department of Anticoagulation in [place], [place] [address] [place] [address] Lexi Carson Anticoagulation (Unable to reach) Social [...] your living situation today? I have a [facility] place to live 08/29/2023 Sex and Gender [...] time period of missing appointment. No VM MATION DEVELOPER * Telephone Encounter - Lexi Carson - 11/19/2023 10:02 AM CST Patient contacted today by staff as they are overdue for INR draw. Unable to reach. First Attempt. MATION DEVELOPER documented in this encounter Plan of Treatment Upcoming Encounters Date Type Department Care Team (Late st Contact Info) Description 01/04/2024 10:30 AM AUTOMATION DEVELOPER Comprehensive Visit Division of Hematology in [place], [place] [address] [place] [address] Brandy Real M.D., M.B.A. [address] [place] [address] documented as of this encounter Visit Diagnoses Not on filedocumented in this encounter Additional Health Concerns Assessment Noted Time PHQ-9 Depression Total Score: 1 09/10/20 23 2:06 PM CDT documented as of this encounter Care Teams Gis Web Developer Relationship Specialty Start Date End Date Kylah Crum M.D. [address] [place] [phone] PCP - General Family Medicine 09/28/23 documented as of this encounter
--- OUTSIDE RECORDS SUMMARY | 2023-12-30 07:22 | XMS_ITS | Encounter Summary ---
Author Name Unknown Organization [facility] Address [address] [place] [address] Care Team Providers Care Legal Process Specialist Name Role Phone Kylah Crum M.D. Primary Care Provider Reason for Visit * Reason Onset Date Comments Med Question 11/27/2023 Priority 2 Encounter Details Date Type Department Care Team (Latest Contact Info) Description 11/27/2023 Clinical Communication Division of Nephrology and Hypertension in [place], [place] [address] [place] [address] Mare Arauz M.D., Ph.D. [address] [place] [phone] Med Question (Priority 2) Social History Tobacco [...] your living situation today? I have a [facility] place to live 08/29/2023 Sex and Gender Information Value Date Recorded Sex Assigned at Male 08/29/2023 11:06 AM CDT Gender Identity Male 08/29/2023 11:06 AM CDT Sexual Orientation Straight 08/29/2023 11 :06 AM CDT documented as of this encounter Plan of Treatment Upcoming Encounters Date Type Department Care Team (Late st Contact Info) Description 01/04/2024 10:30 AM SVP RESEARCH AND STRATEGIC ANALYSIS Comprehensive Visit Division of Hematology in [place], [place] [address] [place] [address] Brandy Real M.D., M.B.A. [address] [place] [address] documented as of this encounter Visit Diagnoses Not on filedocumented in this encounter Additional Health Concerns Assessment Noted Time PHQ-9 Depression Total Score: 1 09/10/20 2:06 PM CDT documented as of this encounter Care Teams Legal Process Specialist Relationship Specialty Start Date End Date Kylah Crum M.D. [address] [place] [address] [place] [phone] PCP - General Family Medicine 09/28/23 documented as of this encounter
--- OUTSIDE RECORDS SUMMARY | 2023-12-30 07:22 | XMS_ITS | Encounter Summary ---
Author Name Unknown Organization [facility] Address [address] [place] [address] Care Team Providers Care School Janitor Name Role Phone Kylah Crum M.D. Primary Care Provider Reason for Visit * Appointment Request (Routine) - Closed Specialty Diagnoses / Procedures Referred By Sebas gimenez Referred To Contact Nephrology and Hypertension Referral ID Status Reason Start Date Expiration Date Visits Re quested Visits Authorized [id number] Closed 10/19/2023 10/18/2024 1 1 Encounter Details Date Type Department Care Team (Latest Contact Info) Description 10/31/2023 8:00 AM DEHYDRATOR OPERATOR External Outreach Division of Nephrology and Hypertension in [place], [place] [address] [place] [address] aMre Arauz M.D., Ph.D. [address] [place] [address] Chronic Kidney Disease (CKD), Stage 3b Glomerular [...] your living situation today? I have a [facility] place to live 08/29/2023 Sex and [...] X1, VEIN.; Surgeon: Sarah Miller M.D., M.P.H.; Location:[facility] OR CATH ANGIOGRAM N/A 08/21/2023 Procedure: CORONARY ANGIOGRAPHY; Surgeon: Ezequiel Jack M.D.; Location: [facility] CCL ECHOCARDIOGRAM TRANSESOPHAGEAL N/A 09/19/2023 Procedure: ECHOCARDIOGRAM [...] Seymour M.D., Ph.D. CT CT Job ID: [id number] DRATOR OPERATOR documented in this encounter Plan of Treatment Upcoming Encounters Date Type Department Care Team (Late st Contact Info) Description 01/04/2024 10:30 AM DEHYDRATOR OPERATOR Comprehensive Visit Division of Hematology in [place], [place] [address] [place] [address] Brandy Real M.D., M.B.A. [address] [place] [address] documented as of this encounter Visit Diagnoses Diagnosis Chronic Kidney Disease (CKD), Stage 3b Glomerular Filtration Rate (GFR) 30 To 44 (HCC)- Primary Hypertension Essential Primary documented in this encounter Additional Health Concerns Assessment Noted Time PHQ-9 Depression Total Score: 1 09/10/20 23 2:06 PM CDT documented as of this encounter Care Teams School Janitor Relationship Specialty Start Date End Date Kylah Crum M.D. [address] [place] [phone] PCP - General Family Medicine 09/28/23 documented as of this encounter
--- OUTSIDE RECORDS SUMMARY | 2023-12-30 07:22 | XMS_ITS | Encounter Summary ---
Author Name Unknown Organization [facility] Address [address] [place] [address] Care Team Providers Care Lease Administration Supervisor Name Role Phone Kylah Crum M.D. Primary Care Provider [phone] Reason for Visit * Reason Onset Date Comments Anticoagulation 11/22/2023 Encounter Details Date Type Department Care Team (Latest Contact Info) Description 11/22/2023 Clinical Communication Department of Anticoagulation in [place], [place] [address] [place] [address] Edna Gamble RSammi [address] [place] [phone] Anticoagulation Social History Tobacco Use Types Packs/Day [...] your living situation today? I have a [facility] place to live 08/29/2023 Sex and Gender Information Value Date Recorded Sex Assigned at Male 08/29/2023 11:06 AM CDT Gender Identity Male 08/29/2023 11:06 AM CDT Sexual Orientation Straight 08/29/2023 11 :06 AM CDT documented as of this encounter Miscellaneous Notes * Telephone Encounter - Edna Gamble R.N. - 11/22/2023 10:45 AM COGNOS TM1 DEVELOPER Jong Harris Primary Care Anticoagulation Episode has been resolved due to transitioning to adifferent Anticoagulation program. Thank you for allowing us to participate in the anticoagulation management of your patient. Primary Care in [facility] Anticoagulation Program at [phone]. InBasket: RST ACO PRIMARY CARE ANTICOAG SERVICE OS TM1 DEVELOPER documented in this encounter Plan of Treatment Upcoming Encounters Date Type Department Care Team (Late st Contact Info) Description 01/04/2024 10:30 AM COGNOS TM1 DEVELOPER Comprehensive Visit Division of Hematology in [place], [place] [address] [place] [address] Brandy Real M.D., M.B.A. [address] [place] [address] documented as of this encounter Visit Diagnoses Diagnosis Diabetes Mellitus Type 2 (HCC)- 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 History Prosthesis Aortic Valve Cardiac Surgery Status Post Bypass Coronary Artery Graft Status Post Staffing Executive (Current) Anticoagulant Treatment Monitoring For Therapeutic Drug Therapy documented in this encounter Additional Health Concerns Assessment Noted Time PHQ-9 Depression Total Score: 1 09/10/20 23 2:06 PM CDT documented as of this encounter Care Teams Lease Administration Supervisor Relationship Specialty Start Date End Date Kylah Crum M.D. [address] [place] [phone] PCP - General Family Medicine 09/28/23 documented as of this encounter
--- OUTSIDE RECORDS SUMMARY | 2023-12-30 07:22 | XMS_ITS | Encounter Summary ---
Author Name Unknown Organization [facility] Address [address] [place] [address] Care Team Providers Care Pre Owned Sales Consultant Name Role Phone Kylah Crum M.D. Primary Care Provider [phone] Reason for Visit * Appointment Request (Routine) - Closed Specialty Diagnoses / Procedures Referred By Sebas gimenez Referred To Contact Nephrology and Hypertension Referral ID Status Reason Start Date Expiration Date Visits Re quested Visits Authorized [id number] Closed 11/16/2023 11/15/2024 1 1 Encounter Details Date Type Department Care Team (Latest Contact Info) Description 11/27/2023 2:00 PM EMERGENCY DISPATCH OPERATOR External Outreach Division of Nephrology and Hypertension in [place], [place] [address] [place] [address] Mare Arauz M.D., Ph.D. [address] [place] [address] Congestive Heart Failure (HCC) (Primary Dx) Social [...] up. He was recently hospitalized at the [facility] for CHF exacerbation. He had [...] he notices a rapid increase in weight. GENCY DISPATCH OPERATOR documented in this encounter Plan of Treatment Upcoming Encounters Date Type Department Care Team (Late st Contact Info) Description 01/04/2024 10:30 AM EMERGENCY DISPATCH OPERATOR Comprehensive Visit Division of Hematology in [place], [place] [address] [place] [address] Brandy Real M.D., M.B.A. [address] [place] [address] documented as of this encounter Visit Diagnoses Diagnosis Congestive Heart Failure (HCC)- Primary documented in this encounter Additional Health Concerns Assessment Noted Time PHQ-9 Depression Total Score: 1 09/10/20 23 2:06 PM CDT documented as of this encounter Care Teams Pre Owned Sales Consultant Relationship Specialty Start Date End Date Kylah Crum M.D. [address] [place] [phone] PCP - General Family Medicine 09/28/23 documented as of this encounter
--- OUTSIDE RECORDS SUMMARY | 2023-12-30 07:22 | XMS_ITS | Encounter Summary ---
Author Name Unknown Organization [facility] Address [address] [place] [address] Care Team Providers Care Junior Engineer Name Role Phone Kylah Crum M.D. Primary Care Provider [phone] Reason for Visit * Outpatient (Routine) - Canceled Specialty Diagnoses / Procedures Referred By Sebas t Referred To Contact Anticoagulation Diagnoses Coronary Arterial Bypass Graft Status Post Personal History Cardiac Surgery Status Post Bypass Coronary Artery Graft Status Post Prosthesis Aortic Valve Kylah Crum M.D. [address] [place] [address] [facility] Referral ID Status Reason Start Date Expiration Date V isits Requested Visits Authorized [id number] Canceled 10/01/2023 09/30/2026 300 300 Encounter Details Date Type Department Care Team (Latest Contact Info) Description 11/02/2023 3:00 PM BROKE WORKER Anticoagulation Visit Department of Anticoagulation in [place], [place] [address] [place] [address] Kylah Crum M.D. [address] [place] [address] Diabetes Mellitus Type 2 (HCC) (Primary Dx); Coronary Arterial Bypass Graft Status Post Personal History; Cardiac Surgery Status Post; Bypass Coronary Artery Graft Status Post; Prosthesis Aortic Valve; Paper Roller (Current) Anticoagulant Treatment; Monitoring For Therapeutic Drug [...] Keli Anguiano R.N. - 11/02/2023 3:00 PM BROKE WORKER Your next INR will be SundayNovember 09. You will need to call the Anticoagulation Program for warfarin dosing at the scheduled time for your nurse visit, as indicated on your Patient Appointment Guide (PAG). To reschedule your appointment or for questions about your warfarin, please call Primary Care Anticoagulation Program at [phone] from 7:30 am to 4:30 pm. Sunday-Sunday [...] if you start any herbal or other fuoh-lsc-afmrtxa product (check with your doctor, a nurse, or pharmacist). If you change your diet significantly. If you decide to stop or start using tobacco or alcohol. If you notice unusual bruising or bleeding. If you notice dark, tarry, or bright red stools or blood in your urine. If you have a painful and swollen calf. E WORKER documented in this encounter Progress Notes * [...] or follow-up information: Provider consulted: [facility]- Anticoagulation [facility] Pt is on injectable anticoagulant: No. Plan used: Consult. See Anticoagulation Track Calendar for dosing and plan details. Anticoagulation Visit Summary: Patient repeats back dosing instructions, date of next INR, and has no further questions at this time. Total time spent with patient: 15 minutes E WORKER documented in this encounter Plan of Treatment Upcoming Encounters Date Type Department Care Team (Late st Contact Info) Description 01/04/2024 10:30 AM BROKE WORKER Comprehensive Visit Division of Hematology in [place], [place] [address] [place] [address] Brandy Real M.D., M.B.A. [address] [place] [address] documented as of this encounter Visit Diagnoses Diagnosis Diabetes Mellitus Type 2 (HCC)- 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 History Cardiac Surgery Status Post Bypass Coronary Artery Graft Status Post Prosthesis Aortic Valve Paper Roller (Current) Anticoagulant Treatment Monitoring For Therapeutic Drug Therapy documented in this encounter Additional Health Concerns Assessment Noted Time PHQ-9 Depression Total Score: 1 09/10/20 23 2:06 PM CDT documented as of this encounter Care Teams Junior Engineer Relationship Specialty Start Date End Date Kylah Crum M.D. [address] [place] [phone] PCP - General Family Medicine 09/28/23 documented as of this encounter
--- OUTSIDE RECORDS SUMMARY | 2023-12-30 07:22 | XMS_ITS | Encounter Summary ---
Author Name Unknown Organization [facility] Address [address] [place] [address] Care Team Providers Care Micro Computer Data Processor Name Role Phone Kylah Crum M.D. Primary Care Provider [phone] Reason for Visit * Outpatient (Routine) - Canceled Specialty Diagnoses / Procedures Referred By Sebas t Referred To Contact Anticoagulation Diagnoses Coronary Arterial Bypass Graft Status Post Personal History Cardiac Surgery Status Post Bypass Coronary Artery Graft Status Post Prosthesis Aortic Valve Kylah Crum M.D. [address] [place] [address] [facility] Referral ID Status Reason Start Date Expiration Date V isits Requested Visits Authorized [id number] Canceled 10/01/2023 09/30/2026 300 300 Encounter Details Date Type Department Care Team (Latest Contact Info) Description 10/29/2023 4:10 PM BARN HAND Anticoagulation Visit Department of Anticoagulation in [place], [place] [address] [place] [address] Kylah Crum M.D. [address] [place] [address] Diabetes Mellitus Type 2 (HCC) (Primary Dx); Coronary Arterial Bypass Graft Status Post Personal History; Cardiac Surgery Status Post; Bypass Coronary Artery Graft Status Post; Prosthesis Aortic Valve; Homeopathic Doctor (Current) Anticoagulant Treatment; Monitoring For Therapeutic Drug [...] your living situation today? I have a [facility] place to live 08/29/2023 Sex and Gender Information Value Date Recorded Sex Assigned at Male 08/29/2023 11:06 AM CDT Gender Identity Male 08/29/2023 11:06 AM CDT Sexual Orientation Straight 08/29/2023 11 :06 AM CDT documented as of this encounter Patient Instructions * Patient Instructions* Keli Anguiano R.N. - 10/29/2023 4:10 PM BARN HAND Your next INR will be SundayNovember 02. You will need to call the Anticoagulation Program for warfarin dosing at the scheduled time for your nurse visit, as indicated on your Patient Appointment Guide (PAG). To reschedule your appointment or for questions about your warfarin, please call Primary Care Anticoagulation Program at [phone] from 7:30 am to 4:30 pm. Sunday-Sunday [...] if you start any herbal or other posg-ddj-mxujsws product (check with your doctor, a nurse, or pharmacist). If you change your diet significantly. If you decide to stop or start using tobacco or alcohol. If you notice unusual bruising or bleeding. If you notice dark, tarry, or bright red stools or blood in your urine. If you have a painful and swollen calf. HAND documented in this encounter Progress Notes [...] Total time spent with patient: 15 minutes HAND documented in this encounter Plan of Treatment Upcoming Encounters Date Type Department Care Team (Late st Contact Info) Description 01/04/2024 10:30 AM BARN HAND Comprehensive Visit Division of Hematology in [place], [place] [address] [place] [address] Brandy Real M.D., M.B.A. [address] [place] [address] documented as of this encounter Results * INR Reflex, POCT, Blood (11/02/2023 12:42 PM BARN HAND) INR Reflex, POCT, B 3.6 11/02/2023 12:41 PM BARN HAND [id number] Comment: ----ADDITIONAL INFORMATION---- Standard intensity warfarin therapeutic range: 2.0 to 3.0 ?? High intensity warfarin therapeutic range: 2.5 to 3.5 Blood (Blood, Capillary) 11/02/2023 12:42 PM BARN HAND 11/02/2023 12:41 PM BARN HAND Kylah Crum M.D. LAB POCT ORDERABLES - DEVICE [facility] [address] [place] [address], [facility] FB60 [facility] in [place] [address] [place] [address] documented in this encounter Visit Diagnoses Diagnosis Diabetes Mellitus Type 2 (HCC)- 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 History Cardiac Surgery Status Post Bypass Coronary Artery Graft Status Post Prosthesis Aortic Valve Homeopathic Doctor (Current) Anticoagulant Treatment Monitoring For Therapeutic Drug Therapy documented in this encounter Additional Health Concerns Assessment Noted Time PHQ-9 Depression Total Score: 1 09/10/20 23 2:06 PM CDT documented as of this encounter Care Teams Micro Computer Data Processor Relationship Specialty Start Date End Date Kylah Crum M.D. [address] [place] [address] PCP - General Family Medicine 09/28/23 documented as of this encounter
--- OUTSIDE RECORDS SUMMARY | 2023-12-30 07:22 | XMS_ITS | Encounter Summary ---
Author Name Unknown Organization [facility] Address [address] [place] [address] Care Team Providers Care Manager Lpn Name Role Phone Kylah Crum M.D. Primary Care Provider Encounter Details Date Type Department Care Team (Latest Contact Info) Description 11/01/2023 Clinical Communication Department of Cardiovascular Medicine in [place], [place] [address] [place] [phone] Gudelia Soto M.D. [address] [place] [address] Social History Tobacco Use Types Packs/Day Years [...] st Contact Info) Description 01/04/2024 10:30 AM EDI ARCHITECT Comprehensive Visit Division of Hematology in [place], [place] [address] [place] [address] Brandy Real M.D., M.B.A. [address] [place] [address] documented as of this encounter Visit Diagnoses Not on filedocumented in this encounter Additional Health Concerns Assessment Noted Time PHQ-9 Depression Total Score: 1 09/10/20 2:06 PM CDT documented as of this encounter Care Teams Manager Lpn Relationship Specialty Start Date End Date Kylah Crum M.D. [address] [place] [address] [place] [phone] PCP - General Family Medicine 09/28/23 documented as of this encounter
--- OUTSIDE RECORDS SUMMARY | 2023-12-30 07:22 | XMS_ITS | Encounter Summary ---
Author Name Unknown Organization [facility] Address [address] [place] [address] Care Team Providers Care Commercial Relationship Manager Name Role Phone Kylah Crum M.D. Primary Care Provider [phone] Encounter Details Date Type Department Care Team (Latest Contact Info) Description 11/02/2023 12:33 PM COST ACCOUNTING ANALYST - 11/02/2023 11:59 PM COST ACCOUNTING ANALYST Hospital Encounter Department of Laboratory Medicine in [place], [place] [address] [place] [phone] Kylah Crum M.D. [address] [place] [phone] Coronary Arterial Bypass Graft Status Post Personal [...] your living situation today? I have a [facility] place to live 08/29/2023 Sex and [...] per Anticoagulation Clinic 180 tablet 3 10/31/2023 amiodarone (PACERONE) 200 mg tablet Take 1 tablet (200 mg total) by mouth 2 (two) times a day for 2 days, THEN 1 tablet (200 mg total) daily. 34 tablet 0 09/26/2023 12/24/2023 furosemide (LASIX) 20 mg tablet Take 1 tablet (20 mg total) by mouth daily for 10 days. 10 tablet 0 10/12/2023 12/24/2023 furosemide (LASIX) 40 mg tablet Take 1 tablet (40 mg total) by mouth daily for 10 days. 10 tablet 0 10/31/2023 12/24/2023 documented as of this encounter Plan of Treatment Upcoming Encounters Date Type Department Care Team (Late st Contact Info) Description 01/04/2024 10:30 AM COST ACCOUNTING ANALYST Comprehensive Visit Division of Hematology in [place], [place] [address] [place] [address] Brandy Real M.D., M.B.A. [address] [place] [address] documented as of this encounter Procedures Procedure Name Priority Date/Time Associated Diagnosis Comments INR REFLEX, POCT, B Routine 11/02/2023 1 2:42 PM COST ACCOUNTING ANALYST Coronary Arterial Bypass Graft Status Post Personal History Cardiac Surgery Status Post Bypass Coronary Artery Graft Status Post Prosthesis Aortic Valve Diabetes Mellitus Type 2 (HCC) documented in this encounter Results * INR Reflex, POCT, Blood (11/02/2023 12:42 PM COST ACCOUNTING ANALYST) INR Reflex, POCT, B 3.6 11/02/2023 12:41 PM COST ACCOUNTING ANALYST [id number] Comment: ----ADDITIONAL INFORMATION---- Standard intensity warfarin therapeutic range: 2.0 to 3.0 ?? High intensity warfarin therapeutic range: 2.5 to 3.5 Blood (Blood, Capillary) 11/02/2023 12:42 PM COST ACCOUNTING ANALYST 11/02/2023 12:41 PM COST ACCOUNTING ANALYST Kylah Crum M.D. LAB POCT ORDERABLES - DEVICE [facility] [address] [place] [address], [facility] FB60 [facility] in [place] [address] [place] [address] documented in this encounter Visit Diagnoses Diagnosis Coronary Arterial Bypass Graft Status Post Personal History Cardiac Surgery Status Post Bypass Coronary Artery Graft Status Post Prosthesis Aortic Valve Diabetes Mellitus Type 2 (HCC) documented in this encounter Additional Health Concerns Assessment Noted Time PHQ-9 Depression Total Score: 1 09/10/20 23 2:06 PM CDT documented as of this encounter Care Teams Commercial Relationship Manager Relationship Specialty Start Date End Date Kylah Crum M.D. [address] [place] [address] PCP - General Family Medicine 09/28/23 documented as of this encounter
--- OUTSIDE RECORDS SUMMARY | 2023-12-30 07:22 | XMS_ITS | Encounter Summary ---
Author Name Unknown Organization [facility] Address [address] [place] [address] Care Team Providers Care Supervisor [place] Name Role Phone Kylah Crum M.D. Primary Care Provider [phone] Encounter Details Date Type Department Care Team (Latest Contact Info) Description 10/29/2023 12:42 PM DIABETES SOLUTIONS SPECIALIST - 10/29/2023 11:59 PM DIABETES SOLUTIONS SPECIALIST Hospital Encounter Department of Laboratory Medicine in [place], [place] [address] [place] [phone] Kylah Crum M.D. [address] [place] [phone] Coronary Arterial Bypass Graft Status Post Personal History; Cardiac Surgery Status Post; Bypass Coronary Artery Graft Status Post; Prosthesis Aortic Valve; Diabetes Mellitus Type 2 (HCC); Assistant Professor Of Education (Current) Anticoagulant Treatment; Monitoring For Therapeutic Drug [...] your living situation today? I have a [facility] place to live 08/29/2023 Sex and [...] total) by mouth at bedtime. 0 09/26/2023 amiodarone (PACERONE) 200 mg tablet Take 1 tablet (200 mg total) by mouth 2 (two) times a day for 2 days, THEN 1 tablet (200 mg total) daily. 34 tablet 0 09/26/2023 12/24/2023 furosemide (LASIX) 20 mg tablet Take 1 tablet (20 mg total) by mouth daily for 10 days. 10 tablet 0 10/12/2023 12/24/2023 warfarin (JANTOVEN) 1 mg tablet Please take 1 tablet (1 mg) by mouth daily on 09/26 and 09/27. Recheck INR on 09/28 with dosing to follow per PCP. 100 tablet 0 09/26/2023 10/31/2023 documented as of this encounter Plan of Treatment Upcoming Encounters Date Type Department Care Team (Late st Contact Info) Description 01/04/2024 10:30 AM DIABETES SOLUTIONS SPECIALIST Comprehensive Visit Division of Hematology in [place], [place] [address] [place] [address] Brandy Real M.D., M.B.A. [address] [place] [address] documented as of this encounter Procedures Procedure Name Priority Date/Time Associated Diagnosis Comments INR REFLEX, POCT, B Routine 10/29/2023 12:50 PM DIABETES SOLUTIONS SPECIALIST Coronary Arterial Bypass Graft Status Post Personal History Cardiac Surgery Status Post Bypass Coronary Artery Graft Status Post Prosthesis Aortic Valve Diabetes Mellitus Type 2 (HCC) Correction (Current) Anticoagulant Treatment Monitoring For Therapeutic Drug Therapy documented in this encounter Results * INR Reflex, POCT, Blood (10/29/2023 12:50 PM DIABETES SOLUTIONS SPECIALIST) INR Reflex, POCT, B 2.7 10/29/2023 12:49 PM DIABETES SOLUTIONS SPECIALIST [id number] Comment: ----ADDITIONAL INFORMATION---- Standard intensity warfarin therapeutic range: 2.0 to 3.0 ?? High intensity warfarin therapeutic range: 2.5 to 3.5 Blood (Blood, Capillary) 10/29/2023 12:50 PM DIABETES SOLUTIONS SPECIALIST 10/29/2023 12:49 PM DIABETES SOLUTIONS SPECIALIST Kylah Crum M.D. LAB POCT ORDERABLES - DEVICE [facility] [address] [place] [address], [facility] FB60 [facility] [address] [place] [address] documented in this encounter Visit Diagnoses Diagnosis Coronary Arterial Bypass Graft Status Post Personal History Cardiac Surgery Status Post Bypass Coronary Artery Graft Status Post Prosthesis Aortic Valve Diabetes Mellitus Type 2 (HCC) Assistant Professor Of Education (Current) Anticoagulant Treatment Monitoring For Therapeutic Drug Therapy documented in this encounter Additional Health Concerns Assessment Noted Time PHQ-9 Depression Total Score: 1 09/10/20 23 2:06 PM CDT documented as of this encounter Care Teams Supervisor [place] Relationship Specialty Start Date End Date Kylah Crum M.D. [address] [place] [address] PCP - General Family Medicine 09/28/23 documented as of this encounter
--- OUTSIDE RECORDS SUMMARY | 2023-12-30 07:22 | XMS_ITS | Encounter Summary ---
Author Name Unknown Organization [facility] Address [address] [place] [address] Care Team Providers Care Form Maker Plaster Name Role Phone Kylah Crum M.D. Primary Care Provider Reason for Visit * Reason Onset Date Comments Med Question 11/01/2023 Refills or stopp ing medications Encounter Details Date Type Department Care Team (Latest Contact Info) Description 11/01/2023 Clinical Communication Department of Cardiovascular Surgery in [place], [place] [address] [place] [phone] Sarah Miller M.D., M.P.H. [address] [place] [phone] Med Question (Refills or stopping medications) Social [...] expects communication via portal: No Phone number: [phone] Surgical Date: 09/19/2023 Surgeon: Angela Request topic and what needs to be addressed? Medication Management Questions to be answered: Wonder if he should continue or stop medications he left the hospital with? Additional comments: Patient has seen his local PCP but was not aware that he would need a follow up visit with a asw specialist, so one hasn't been schedule I will connect them to the CVD area to work on getting that scheduled. Routing Patient Discharged within last week? No Patient seen by outpatient provider since dismissal? Yes: Provider seen: Dr. Leslie and Appt Date 10/03/2023 Reminder: send to inpatient group if patient DC'd within past week, and has not been seen by outpatient provider Karli R CHIPPER MACHINE OPERATOR documented in this encounter Plan of Treatment Upcoming Encounters Date Type Department Care Team (Late st Contact Info) Description 01/04/2024 10:30 AM SUGAR CHIPPER MACHINE OPERATOR Comprehensive Visit Division of Hematology in [place], [place] [address] [place] [address] Brandy Real M.D., M.B.A. [address] [place] [address] documented as of this encounter Visit Diagnoses Not on filedocumented in this encounter Additional Health Concerns Assessment Noted Time PHQ-9 Depression Total Score: 1 09/10/20 23 2:06 PM CDT documented as of this encounter Care Teams Form Maker Plaster Relationship Specialty Start Date End Date Kylah Crum M.D. [address] [place] [phone] PCP - General Family Medicine 09/28/23 documented as of this encounter
--- OUTSIDE RECORDS SUMMARY | 2023-12-30 07:22 | XMS_ITS | Encounter Summary ---
Author Name Unknown Organization [facility] Address [address] [place] [address] Care Team Providers Care Semiconductor Wafers Etcher Stripper Name Role Phone Kylah Crum M.D. Primary Care Provider [phone] Encounter Details Date Type Department Care Team (Late st Contact Info) Description 11/08/2023 Clinical Communication Division of Nephrology and Hypertension in [place], [place] [address] [place] [address] Mare Arauz M.D., Ph.D. [address] [place] [address] Social History Tobacco Use Types Packs/Day Years [...] your living situation today? I have a [facility] place to live 08/29/2023 Sex and Gender Information Value Date Recorded Sex Assigned at Male 08/29/2023 11:06 AM CDT Gender Identity Male 08/29/2023 11:06 AM CDT Sexual Orientation Straight 08/29/2023 11 :06 AM CDT documented as of this encounter Miscellaneous Notes * Telephone Encounter - Mare Arauz M.D., Ph.D. - 11/08/2023 1:49 PM CST I received a call from chief wheelage clerk at [facility]. Patient had a kidney ultrasound with doppler [...] paracentesis are needed. Kay Seymour M.D., Ph.D. LE HELPER documented in this encounter Plan of Treatment Upcoming Encounters Date Type Department Care Team (Late st Contact Info) Description 01/04/2024 10:30 AM STABLE HELPER Comprehensive Visit Division of Hematology in [place], [place] [address] [place] [address] Brandy Real M.D., M.B.A. [address] [place] [address] documented as of this encounter Visit Diagnoses Not on filedocumented in this encounter Additional Health Concerns Assessment Noted Time PHQ-9 Depression Total Score: 1 09/10/20 23 2:06 PM CDT documented as of this encounter Care Teams Semiconductor Wafers Etcher Stripper Relationship Specialty Start Date End Date Kylah Crum M.D. [address] [place] [phone] PCP - General Family Medicine 09/28/23 documented as of this encounter
--- OUTSIDE RECORDS SUMMARY | 2023-12-30 07:22 | XMS_ITS | Encounter Summary ---
Author Name Unknown Organization [facility] Address [address] [place] [address] Care Team Providers Care Police Records Clerk Name Role Phone Kylah Crum M.D. Primary Care Provider [phone] Reason for Referral * Outpatient (Routine) - Closed Specialty Diagnoses / Procedures Referred By Contac t Referred To Contact Diagnoses Stenosis Aortic Valve Acquired Procedures Echo Transthoracic (TTE) - Complex Valvular Heart Disease Gudelia Soto M.D. [address] [place] [address] [facility] Referral ID Status Reason Start Date Expiration Date Visits Re quested Visits Authorized [id number] Closed 12/14/2023 12/13/2024 1 1 IMPROVEMENT INSTALLER * Outpatient (Routine) - Closed Specialty Diagnoses / Procedures Referred By Contac t Referred To Contact Diagnoses Stenosis Aortic Valve Acquired Procedures ECG 12 Lead Gudelia Soto M.D. [address] [place] [address] [facility] Referral ID Status Reason Start Date Expiration Date Visits Re quested Visits Authorized [id number] Closed 12/14/2023 12/13/2024 1 1 IMPROVEMENT INSTALLER * Outpatient (Routine) - Closed Specialty Diagnoses / Procedures Referred By Contac t Referred To Contact Diagnoses Stenosis Aortic Valve Acquired Procedures DX Chest AP or PA and Lateral 2 Views Gudelia Soto M.D. [address] [place] [address] [facility] Referral ID Status Reason Start Date Expiration Date Visits Re quested Visits Authorized [id number] Closed 12/14/2023 12/13/2024 1 1 IMPROVEMENT INSTALLER Encounter Details Date Type Department Care Team (Late st Contact Info) Description 11/30/2023 Orders Only Department of Cardiovascular Medicine in [place], [place] [address] [place] [address] Gudelia Soto M.D. [address] [place] [phone] Stenosis Aortic Valve Acquired (Primary Dx) Social [...] st Contact Info) Description 01/04/2024 10:30 AM HOME IMPROVEMENT INSTALLER Comprehensive Visit Division of Hematology in [place], [place] [address] [place] [address] Brandy Real M.D., M.B.A. [address] [place] [address] documented as of this encounter Results * DX Chest AP or PA and Lateral 2 Views (12/24/2023 10:42 AM HOME IMPROVEMENT INSTALLER) Anatomical Region Laterality Modality Chest, Thoracic RST LOS, Tho racic ARZ LOS, Thoracic FLA LOS N/A Digital Radiography Impressions 12/24/2023 12:00 PM HOME IMPROVEMENT INSTALLER Small bilateral pleural effusions are decreased. Improved aeration of the left lung base with decreased previous probable subsegmental atelectasis. No new consolidation. No pneumothorax. Cardiac silhouette is mildly enlarged, unchanged. Prosthetic aortic valve. Intact sternotomy wires. Loop recorder in soft tissues of the anterior chest wall. Narrative 12/24/2023 12:00 PM HOME IMPROVEMENT INSTALLER EXAM: ??DX CHEST AP OR PA AND [...] * ECG 12 Lead (12/24/2023 10:12 AM HOME IMPROVEMENT INSTALLER) Ventricular Rate ECG/Min 83 BPM MUSE [place] Interval 138 ms MUSE QRSD Interval 76 ms MUSE QT Interval 400 ms MUSE QTC Interval 470 ms MUSE P [place] 55 degrees MUSE R [place] 61 degrees MUSE T Wave [place] 49 degrees MUSE 12/24/2023 10:1 2 AM HOME IMPROVEMENT INSTALLER 12/24/2023 10:21 AM HOME IMPROVEMENT INSTALLER Impressions MUSE - 12/24/2023 10:21 AM HOME IMPROVEMENT INSTALLER Poor data quality Normal sinus rhythm Low [...] Soto M.D. ECG ORDERABLES MUSE NA * Sodium (12/24/2023 9:44 AM HOME IMPROVEMENT INSTALLER) Sodium, S 143 135 - 145 mmol/L 12/24/2023 1:00 PM HOME IMPROVEMENT INSTALLER DTL Blood (Blood, Venous) 12/24/2023 9:44 AM HOME IMPROVEMENT INSTALLER 12/24/2023 10:18 AM HOME IMPROVEMENT INSTALLER Gudelia Soto M.D. LAB BLOOD ADD-ON Performing Organization Address City/[facility]/ZIP Co de Phone Number [facility] [address] [place] [address] * Potassium (12/24/2023 9:44 AM HOME IMPROVEMENT INSTALLER) Potassium, S 4.1 3.6 - 5.2 mmol/L 12/24/2023 1:00 PM HOME IMPROVEMENT INSTALLER DT Blood (Blood, Venous) 12/24/2023 9:44 AM HOME IMPROVEMENT INSTALLER 12/24/2023 10:18 AM HOME IMPROVEMENT INSTALLER Gudelia Soto M.D. LAB BLOOD ADD-ON Performing Organization Address City/[facility] Co de Phone Number [facility] [address] [place], [place] [phone] [place] [address] [facility] [address] [place] [address] * (ABNORMAL) NT-Pro B-Type Natriuretic Peptide (BNP) (12/24/2023 9:44 AM HOME IMPROVEMENT INSTALLER) NT-Pro BNP 5208(H) <=540 pg/mL 12/24/2023 1:00 PM HOME IMPROVEMENT INSTALLER DTL Comment: NT-proBNP values less than 300 [...] failure. Blood (Blood, Venous) 12/24/2023 9:44 AM HOME IMPROVEMENT INSTALLER 12/24/2023 10:18 AM HOME IMPROVEMENT INSTALLER Gudelia Soto M.D. LAB BLOOD ADD-ON [facility] [address] [place] [address], [facility] [address] [place] [address] * Lipid Panel (12/24/2023 9:44 AM HOME IMPROVEMENT INSTALLER) Triglycerides 68 mg/dL 12/24/2023 1:00 PM HOME IMPROVEMENT INSTALLER DTL Comment: ----REFERENCE VALUE---- Normal: <150 mg/dL Borderline High: 150-199 mg/dL High: 200-499 mg/dL Very High: > or =500 mg/dL Cholesterol, Total 107 mg/dL 2023 1:00 PM HOME IMPROVEMENT INSTALLER DTL Comment: ----REFERENCE VALUE---- Desirable: < 200 mg/dL Borderline High: 200 - 239 mg/dL High: > or = 240 mg/dL Cholesterol, LDL, Calculated 50 mg/dL 12/24/2023 1:00 PM HOME IMPROVEMENT INSTALLER DTL Comment: ----REFERENCE VALUE---- Desirable: <100 mg/dL Above Desirable: 100-129 mg/dL Borderline High: 130-159 mg/dL High: 160-189 mg/dL Very High: >=190 mg/dL ----ADDITIONAL INFORMATION---- LDL cholesterol calculated using the Iglesias/NIH equation. Cholesterol, HDL, S 42 >=40 mg/dL 12/24/2023 1:00 PM HOME IMPROVEMENT INSTALLER DTL Cholesterol, Non-HDL, Calculated 65 mg/dL 12/24/2023 1:00 PM HOME IMPROVEMENT INSTALLER DTL Comment: ----REFERENCE VALUE---- Desirable: <130 mg/dL Above Desirable: 130-159 mg/dL Borderline High: 160-189 mg/dL High: 190-219 mg/dL Very High: > or =220 mg/dL Fasting (8 HR or more) yes 12/24/2023 10:18 AM HOME IMPROVEMENT INSTALLER DTL Blood (Blood, Venous) 12/24/2023 9:44 AM HOME IMPROVEMENT INSTALLER 12/24/2023 10:18 AM HOME IMPROVEMENT INSTALLER Gudelia Soto M.D. LAB BLOOD ADD-ON Performing Organization Address [facility]/ZIP Co de Phone Number [facility] [address] [place] [address], [facility] [address] [place] [address] * (ABNORMAL) Glucose, Fasting (12/24/2023 9:44 AM HOME IMPROVEMENT INSTALLER) Glucose, P 112(H) 70 - 100 mg/dL 12/24/2023 10:58 AM HOME IMPROVEMENT INSTALLER DTL Last Intake 15 hr 12/24/2023 10:22 AM HOME IMPROVEMENT INSTALLER DTL Blood (Blood, Venous) 12/24/2023 9:44 AM HOME IMPROVEMENT INSTALLER 12/24/2023 10:22 AM HOME IMPROVEMENT INSTALLER Gudelia Soto M.D. LAB BLOOD NON ADD-ON Performing Organization Address [facility] Co de Phone Number [facility] [address] [place] [address], [facility] [address] [place] [address] * (ABNORMAL) Creatinine with Estimated GFR (12/24/2023 9:44 AM HOME IMPROVEMENT INSTALLER) Creatinine 2.68(H) 0.74 - 1.35 mg/dL 12/24/2023 1:00 PM HOME IMPROVEMENT INSTALLER DTL Estimated GFR (eGFR) 25(L) >=60 mL/min/BSA 12/24/2023 1:00 PM HOME IMPROVEMENT INSTALLER DTL Comment: Estimated GFR calculated using the 2020 CKD_EPI creatinine equation. Blood (Blood, Venous) 12/24/2023 9:44 AM HOME IMPROVEMENT INSTALLER 12/24/2023 10:18 AM HOME IMPROVEMENT INSTALLER Narrative Authorizing Provider Result Bakari Soto M.D. LAB BLOOD ADD-ON [facility] [address] [place] [address], [facility] DTL [facility] [address] [place] [address] * (ABNORMAL) CBC with Differential, Blood (12/24/2023 9:44 AM HOME IMPROVEMENT INSTALLER) Hemoglobin 10.8(L) 13.2 - 16.6 g/dL 12/24/2023 10:39 AM HOME IMPROVEMENT INSTALLER DTL Hematocrit 35.4(L) 38.3 - 48.6 % 12/24/2023 10:39 AM HOME IMPROVEMENT INSTALLER DTL Erythrocytes 4.01(L) 4.35 - 5.65 x10(12)/L 12/24/2023 10:39 AM HOME IMPROVEMENT INSTALLER DTL MCV 88.3 78.2 - 97.9 fL 12/24/2023 10:39 AM HOME IMPROVEMENT INSTALLER DTL RBC Distrib Width 15.0(H) 11.8 - 14.5 % 12/24/2023 10:39 AM HOME IMPROVEMENT INSTALLER DTL Platelet Count 187 135 - 317 x10(9)/L 12/24/2023 10:39 AM HOME IMPROVEMENT INSTALLER DTL Leukocytes 5.5 3.4 - 9.6 x10(9)/L 12/24/2023 10:39 AM HOME IMPROVEMENT INSTALLER DTL Neutrophils 3.96 1.56 - 6.45 x10(9)/L 12/24/2023 10:39 AM HOME IMPROVEMENT INSTALLER DHPM Lymphocytes 0.90(L) 0.95 - 3.07 x10(9)/L 12/24/2023 10:39 AM HOME IMPROVEMENT INSTALLER DTL Monocytes 0.56 0.26 - 0.81 x10(9)/L 12/24/2023 10:39 AM HOME IMPROVEMENT INSTALLER DTL Eosinophils 0.07 0.03 - 0.48 x10(9)/L 12/24/2023 10:39 AM HOME IMPROVEMENT INSTALLER DTL Basophils 0.03 0.01 - 0.08 x10(9)/L 12/24/2023 10:39 AM HOME IMPROVEMENT INSTALLER DTL Blood (Blood, Venous) 12/24/2023 9:44 AM HOME IMPROVEMENT INSTALLER 12/24/2023 10:07 AM HOME IMPROVEMENT INSTALLER Gudelia Soto M.D. LAB BLOOD ADD-ON Performing Organization Address City/[facility]/ZIP Co de Phone Number [facility] [address] [place], [place] [phone] [place] [address] 200 [place] [address] [facility] [address] [place] [address] * Albumin (12/24/2023 9:44 AM HOME IMPROVEMENT INSTALLER) Albumin, S 3.7 3.5 - 5.0 g/dL 12/24/2023 1:00 PM HOME IMPROVEMENT INSTALLER DTL Blood (Blood, Venous) 12/24/2023 9:44 AM HOME IMPROVEMENT INSTALLER 12/24/2023 10:18 AM HOME IMPROVEMENT INSTALLER Gudelia Soto M.D. LAB BLOOD ADD-ON Performing Organization Address [facility] Co de Phone Number [facility] [address] [place], [place] [address] [address] [place] [address] * (ABNORMAL) Prothrombin Time (PT) (12/24/2023 9:43 AM HOME IMPROVEMENT INSTALLER) Prothrombin Time, P 31.8(H) 9.4 - 12.5 sec 12/24/2023 10:34 AM HOME IMPROVEMENT INSTALLER DTL INR 2.8 0.9 - 1.1 12/24/2023 10:34 AM HOME IMPROVEMENT INSTALLER DTL Comment: ----ADDITIONAL INFORMATION---- Standard intensity warfarin therapeutic range: 2.0 to 3.0 ?? High intensity warfarin therapeutic range: 2.5 to 3.5 Blood (Blood, Venous) 12/24/2023 9:43 AM HOME IMPROVEMENT INSTALLER 12/24/2023 10:08 AM HOME IMPROVEMENT INSTALLER Narrative Authorizing Provider Result Bakari Soto M.D. LAB BLOOD ADD-ON [facility] [address] [place], [place] [id number] [place] [address] [address] [place] [address] * (TTE) 2D LIMITED WITH COLOR AND DOPPLER (12/24/2023 8:52 AM HOME IMPROVEMENT INSTALLER) Ejection Fraction 60 MC CV EIMS LV [...] Region Laterality Modality Echocardiography 12/24/2023 7:37 AM HOME IMPROVEMENT INSTALLER Impressions 12/24/2023 10:57 AM HOME IMPROVEMENT INSTALLER suggestive of pericardial disease. See comments. 2. Status post 23 mm On-X mechanical aortic valve prosthesis, CABG x1, PVI, and DAHIANA amputation (19-SEP-2023, [place]). 3. Normal left ventricular chamber size, calculated [...] CABG x1, PVI, and DAHIANA amputation (19-SEP-2023, [place]). Echocardiogram performed per left ventricular function protocol [...] the Order-Level Documents. Narrative 12/24/2023 10:57 AM HOME IMPROVEMENT INSTALLER For the complete report, see the Order-Level [...] prosthesis, CABG x1,PVI, and DAHIANA amputation (19-SEP-2023, [place]). 3. Normal left ventricular chamber size, calculated [...] prosthesis, CABG x1, PVI,and DAHIANA amputation (19-SEP-2023, [place]). Echocardiogram performed per leftventricular function protocol + [...] Diagnoses Diagnosis Stenosis Aortic Valve Acquired- Primary Stenosis Aortic Valve Acquired Stenosis Aortic Valve Acquired documented in this encounter Additional Health Concerns Assessment Noted Time PHQ-9 Depression Total Score: 1 09/10/20 23 2:06 PM CDT documented as of this encounter Care Teams Police Records Clerk Relationship Specialty Start Date End Date Kylah Crum M.D. [address] [place] [phone] PCP - General Family Medicine 09/28/23 documented as of this encounter
--- OUTSIDE RECORDS SUMMARY | 2023-12-30 07:23 | XMS_ITS | Encounter Summary ---
Author Name Unknown Organization [facility] Address [address] [place] [address] Care Team Providers Care Foil Cutter Name Role Phone Kylah Crum M.D. Primary Care Provider [phone] Reason for Visit * Outpatient (Routine) - Canceled Specialty Diagnoses / Procedures Referred By Sebas t Referred To Contact Anticoagulation Diagnoses Coronary Arterial Bypass Graft Status Post Personal History Cardiac Surgery Status Post Bypass Coronary Artery Graft Status Post Prosthesis Aortic Valve Kylah Crum M.D. [address] [place] [address] [facility] Referral ID Status Reason Start Date Expiration Date V isits Requested Visits Authorized [id number] Canceled 10/01/2023 09/30/2026 300 300 Encounter Details Date Type Department Care Team (Latest Contact Info) Description 10/12/2023 11:30 AM WINE STEWARD/STEWARDESS Anticoagulation Visit Department of Anticoagulation in [place], [place] [address] [place] [address] Kylah Crum M.D. [address] [place] [address] Detention (Current) Anticoagulant Treatment (Primary Dx); Coronary Arterial [...] your living situation today? I have a [facility] place to live 08/29/2023 Sex and Gender Information Value Date Recorded Sex Assigned at Male 08/29/2023 11:06 AM CDT Gender Identity Male 08/29/2023 11:06 AM CDT Sexual Orientation Straight 08/29/2023 11 :06 AM CDT documented as of this encounter Patient Instructions * Patient Instructions* Caitlin Ospina R.N. - 10/12/2023 11:30 AM WINE STEWARD/STEWARDESS Your next INR will be 10/17/23. You will need to call the Anticoagulation Program for warfarin dosing at the scheduled time for your nurse visit, as indicated on your Patient Appointment Guide (PAG). To reschedule your appointment or for questions about your warfarin, please call Primary Care Anticoagulation Program at [phone] from 7:30 am to 4:30 pm. Sunday-Sunday [...] if you start any herbal or other begb-ozw-liqvcyu product (check with your doctor, a nurse, or pharmacist). If you change your diet significantly. If you decide to stop or start using tobacco or alcohol. If you notice unusual bruising or bleeding. If you notice dark, tarry, or bright red stools or blood in your urine. If you have a painful and swollen calf. STEWARD/STEWARDESS documented in this encounter Progress Notes * [...] stating consult required. Consulted Anticoagulation [facility] for plan. Currently bridging: no. INR is therapeutic/supratherapeutic. Additional dosing or follow-up information: None. Pt is on injectable anticoagulant: No. Plan used: Consult. See Anticoagulation Track Calendar for dosing and plan details. Anticoagulation Visit Summary: Patient repeats back dosing instructions, date of next INR, and has no further questions at this time. Total time spent with patient: N/A STEWARD/STEWARDESS documented in this encounter Plan of Treatment Upcoming Encounters Date Type Department Care Team (Late st Contact Info) Description 01/04/2024 10:30 AM WINE STEWARD/STEWARDESS Comprehensive Visit Division of Hematology in [place], [place] [address] [place] [address] Brandy Real M.D., M.B.A. [address] [place] [address] documented as of this encounter Results * INR Reflex, POCT, Blood (10/17/2023 11:22 AM WINE STEWARD/STEWARDESS) INR Reflex, POCT, B 4.2 10/17/2023 11:21 AM WINE STEWARD/STEWARDESS [id number] Comment: ----ADDITIONAL INFORMATION---- Standard intensity warfarin therapeutic range: 2.0 to 3.0 ?? High intensity warfarin therapeutic range: 2.5 to 3.5 Blood (Blood, Capillary) 10/17/2023 11:22 AM WINE STEWARD/STEWARDESS 10/17/2023 11:21 AM WINE STEWARD/STEWARDESS Kylah Crum M.D. 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 [address] [place] [address] PCP - General Family Medicine 09/28/23 documented as of this encounter
--- OUTSIDE RECORDS SUMMARY | 2023-12-30 07:23 | XMS_ITS | Encounter Summary ---
Author Name Unknown Organization [facility] Address [address] [place] [address] Care Team Providers Care Precast Worker Name Role Phone Kylah Crum M.D. Primary Care Provider Encounter Details Date Type Department Care Team (Latest Contact Info) Description 10/26/2023 10:50 AM HAND BLOCKER - 10/26/2023 11:59 PM [facility] Hospital Encounter Department of Laboratory Medicine in [place], [place] [address] [place] [phone] Kylah Crum M.D. [address] [place] [phone] Coronary Arterial Bypass Graft Status Post Personal History; Cardiac Surgery Status Post; Bypass Coronary Artery Graft Status Post; Prosthesis Aortic Valve; Cognos (Current) Anticoagulant Treatment; Monitoring For Therapeutic Drug [...] living situation today? I have a [facility] place to live 08/29/2023 Sex [...] st Contact Info) Description 01/04/2024 10:30 AM HAND BLOCKER Comprehensive Visit Division of Hematology in [place], [place] [address] [place] [phone] Brandy Real M.D., M.B.A. [address] [place] [phone] documented as of this encounter Procedures Procedure Name Priority Date/Time Associated Diagnosis Comments INR REFLEX, POCT, B Routine 10/26/2023 11:36 AM HAND BLOCKER Coronary Arterial Bypass Graft Status Post Personal History Cardiac Surgery Status Post Bypass Coronary Artery Graft Status Post Prosthesis Aortic Valve Cognos (Current) Anticoagulant Treatment Monitoring For Therapeutic Drug Therapy documented in this encounter Results * INR Reflex, POCT, Blood (10/26/2023 11:36 AM HAND BLOCKER) INR Reflex, POCT, B 3.2 10/26/2023 11:35 AM HAND BLOCKER [id number] Comment: ----ADDITIONAL INFORMATION---- Standard intensity warfarin therapeutic range: 2.0 to 3.0 ?? High intensity warfarin therapeutic range: 2.5 to 3.5 Blood (Blood, Capillary) 10/26/2023 11:36 AM HAND BLOCKER 10/26/2023 11:35 AM HAND BLOCKER Kylah Crum M.D. LAB POCT ORDERABLES - DEVICE [facility] [address] [place] [address], [facility] FB60 [facility] in [place] [address] [place] [address] documented in this encounter Visit Diagnoses Diagnosis Coronary Arterial Bypass Graft Status Post Personal History Cardiac Surgery Status Post Bypass Coronary Artery Graft Status Post Prosthesis Aortic Valve Cognos (Current) Anticoagulant Treatment Monitoring For Therapeutic Drug Therapy documented in this encounter Additional Health Concerns Assessment Noted Time PHQ-9 Depression Total Score: 1 09/10/20 23 2:06 PM CDT documented as of this encounter Care Teams Precast Worker Relationship Specialty Start Date End Date Kylah Crum M.D. [address] [place] [address] PCP - General Family Medicine 09/28/23 documented as of this encounter
--- OUTSIDE RECORDS SUMMARY | 2023-12-30 07:23 | XMS_ITS | Encounter Summary ---
Author Name Unknown Organization [facility] Address [address] [place] [address] Care Team Providers Care Fish Stringer Assembler Name Role Phone Kylah Crum M.D. Primary Care Provider Encounter Details Date Type Department Care Team (Latest Contact Info) Description 10/12/2023 10:50 AM ELECTRONIC ENGINEERING DRAFTSPERSON - 10/12/2023 11:59 PM [facility] Hospital Encounter Department of Laboratory Medicine in [place], [place] [address] [place] [phone] Kylah Crum M.D. [address] [place] [phone] Coronary Arterial Bypass Graft Status Post Personal History; Cardiac Surgery Status Post; Bypass Coronary Artery Graft Status Post; Prosthesis Aortic Valve; Manager Express (Current) Anticoagulant Treatment; Monitoring For Therapeutic Drug [...] your living situation today? I have a [facility] place to live 08/29/2023 Sex and Gender [...] st Contact Info) Description 01/04/2024 10:30 AM ELECTRONIC ENGINEERING DRAFTSPERSON Comprehensive Visit Division of Hematology in [place], [place] [address] [place] [address] Brandy Real M.D., M.B.A. [address] [place] [address] documented as of this encounter Procedures Procedure Name Priority Date/Time Associated Diagnosis Comments INR REFLEX, POCT, B Routine 10/12/2023 11:03 AM ELECTRONIC ENGINEERING DRAFTSPERSON Coronary Arterial Bypass Graft Status Post Personal History Cardiac Surgery Status Post Bypass Coronary Artery Graft Status Post Prosthesis Aortic Valve Manager Express (Current) Anticoagulant Treatment Monitoring For Therapeutic Drug Therapy documented in this encounter Results * INR Reflex, POCT, Blood (10/12/2023 11:03 AM ELECTRONIC ENGINEERING DRAFTSPERSON) INR Reflex, POCT, B 2.5 10/12/2023 11:02 AM ELECTRONIC ENGINEERING DRAFTSPERSON [id number] Comment: ----ADDITIONAL INFORMATION---- Standard intensity warfarin therapeutic range: 2.0 to 3.0 ?? High intensity warfarin therapeutic range: 2.5 to 3.5 Blood (Blood, Capillary) 10/12/2023 11:03 AM ELECTRONIC ENGINEERING DRAFTSPERSON 10/12/2023 11:02 AM ELECTRONIC ENGINEERING DRAFTSPERSON Kylah Crum M.D. LAB POCT ORDERABLES - DEVICE [facility] [address] [place] [address], [facility] FB60 [facility] in [place] [address] [place] [address] documented in this encounter Visit Diagnoses Diagnosis Coronary Arterial Bypass Graft Status Post Personal History Cardiac Surgery Status Post Bypass Coronary Artery Graft Status Post Prosthesis Aortic Valve Manager Express (Current) Anticoagulant Treatment Monitoring For Therapeutic Drug Therapy documented in this encounter Additional Health Concerns Assessment Noted Time PHQ-9 Depression Total Score: 1 09/10/20 23 2:06 PM CDT documented as of this encounter Care Teams Fish Stringer Assembler Relationship Specialty Start Date End Date Kylah Crum M.D. [address] [place] [address] PCP - General Family Medicine 09/28/23 documented as of this encounter
--- OUTSIDE RECORDS SUMMARY | 2023-12-30 07:23 | XMS_ITS | Encounter Summary ---
Author Name Unknown Organization [facility] Address [address] [place] [address] Care Team Providers Care Latexer Name Role Phone Kylah Crum M.D. Primary Care Provider [phone] Encounter Details Date Type Department Care Team (Latest Contact Info) Description 10/08/2023 12:36 PM RUBBER ENGRAVER - 10/08/2023 11:59 PM RUBBER ENGRAVER Hospital Encounter Department of Laboratory Medicine in [place], [place] [address] [place] [phone] Kylah Crum M.D. [address] [place] [phone] Coronary Arterial Bypass Graft Status Post Personal History; Cardiac Surgery Status Post; Bypass Coronary Artery Graft Status Post; Prosthesis Aortic Valve; Thermodynamics Professor (Current) Anticoagulant Treatment; Monitoring For Therapeutic Drug [...] your living situation today? I have a [facility] place to live 08/29/2023 Sex and [...] st Contact Info) Description 01/04/2024 10:30 AM RUBBER ENGRAVER Comprehensive Visit Division of Hematology in [place], [place] [address] [place] [address] Brandy Real M.D., M.B.A. [address] [place] [address] documented as of this encounter Procedures Procedure Name Priority Date/Time Associated Diagnosis Comments INR REFLEX, POCT, B Routine 10/08/2023 12:52 PM RUBBER ENGRAVER Coronary Arterial Bypass Graft Status Post Personal History Cardiac Surgery Status Post Bypass Coronary Artery Graft Status Post Prosthesis Aortic Valve Thermodynamics Professor (Current) Anticoagulant Treatment Monitoring For Therapeutic Drug Therapy documented in this encounter Results * INR Reflex, POCT, Blood (10/08/2023 12:52 PM RUBBER ENGRAVER) INR Reflex, POCT, B 1.8 10/08/2023 12:51 PM RUBBER ENGRAVER [id number] Comment: ----ADDITIONAL INFORMATION---- Standard intensity warfarin therapeutic range: 2.0 to 3.0 ?? High intensity warfarin therapeutic range: 2.5 to 3.5 Blood (Blood, Capillary) 10/08/2023 12:52 PM RUBBER ENGRAVER 10/08/2023 12:51 PM RUBBER ENGRAVER Kylah Crum M.D. LAB POCT ORDERABLES - DEVICE [facility] [address] [place] [address], [facility] FB60 [facility] in [place] [address] [place] [address] documented in this encounter Visit Diagnoses Diagnosis Coronary Arterial Bypass Graft Status Post Personal History Cardiac Surgery Status Post Bypass Coronary Artery Graft Status Post Prosthesis Aortic Valve Thermodynamics Professor (Current) Anticoagulant Treatment Monitoring For Therapeutic Drug Therapy documented in this encounter Additional Health Concerns Assessment Noted Time PHQ-9 Depression Total Score: 1 09/10/20 23 2:06 PM CDT documented as of this encounter Care Teams Latexer Relationship Specialty Start Date End Date Kylah Crum M.D. [address] [place] [address] PCP - General Family Medicine 09/28/23 documented as of this encounter
--- OUTSIDE RECORDS SUMMARY | 2023-12-30 07:23 | XMS_ITS | Encounter Summary ---
Author Name Unknown Organization [facility] Address [address] [place] [address] Care Team Providers Care Leach Runner Name Role Phone Kylah Crum M.D. Primary Care Provider [phone] Reason for Visit * Appointment Request (Routine) - Closed Specialty Diagnoses / Procedures Referred By Sebas gimenez Referred To Contact Cardiovascular Surgery Referral ID Status Reason Start Date Expiration Date Visits Re quested Visits Authorized [id number] Closed 10/03/2023 10/02/2024 1 1 Encounter Details Date Type Department Care Team (Latest Contact Info) Description 10/05/2023 1:00 PM BUTTER MAKER Virtual Visit Department of Cardiovascular Surgery in [place], [place] [address] [place] [address] Mariama Monk, GRAZING AIDE, C.N.P. [address] [place] [address] Cardiac Surgery Status Post (Primary Dx); Coronary Arterial Bypass Graft Status Post Personal History; Prosthesis Aortic Valve; Environmental Services Project Manager (Current) Anticoagulant Treatment Social History Tobacco Use [...] your living situation today? I have a [facility] place to live 08/29/2023 Sex and Gender Information Value Date Recorded Sex Assigned at Male 08/29/2023 11:06 AM CDT Gender Identity Male 08/29/2023 11:06 AM CDT Sexual Orientation Straight 08/29/2023 11 :06 AM CDT documented as of this encounter Progress Notes * Mariama Monk, PIERRE, C.N.P. - 10/05/2023 1:00 PM CST Jong Harris : 1950 Visit Date: 10/05/23 [id number] VISIT Consult conducted via real-time audio/video technology by Mariama Monk APRN, C.N.P. in [facility] to the patient in Patient's Home [...] Personal History #3 Prosthesis Aortic Valve #4 Environmental Services Project Manager (Current) Anticoagulant Treatment Overall, Mr. Harris is [...] by local rehab clinic. Patient referred to: [facility] Rehabilitation [address] [place] [id number] Other Medications: -I reviewed medications with Mr. Harris. -Blood pressure has been appropriate per patient report. Metoprolol was initiated and titrated up to 25 mg twice daily prior to dismissal. Home provider should continue to titrate medications as needed for optimal blood pressure control. -[place] [employer] Guidelines for individuals with coronary [...] atrial fibrillation or per recommendations by the Manager Custom. -Any refills of medications should come from patient's local primary care provider. Other Recommendations: -[place] CV Surgery via a video visit on 10/03, Primary Care Provider appointment on 10/01 with INR, Primary Manager Custom appointment TBD, referral sent. -Please monitor blood [...] care of the patient today. Time includes [id number] patient care and review of records. Mariama Monk APRN, C.N.P. ER MAKER documented in this encounter Plan of Treatment Upcoming Encounters Date Type Department Care Team (Late st Contact Info) Description 01/04/2024 10:30 AM BUTTER MAKER Comprehensive Visit Division of Hematology in [place], [place] [address] [place] [address] Brandy Real M.D., M.B.A. [address] [place] [address] documented as of this encounter Visit Diagnoses Diagnosis Cardiac Surgery Status Post- 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 History Prosthesis Aortic Valve Environmental Services Project Manager (Current) Anticoagulant Treatment documented in this encounter Additional Health Concerns Assessment Noted Time PHQ-9 Depression Total Score: 1 09/10/20 23 2:06 PM CDT documented as of this encounter Care Teams Leach Runner Relationship Specialty Start Date End Date Kylah Crum M.D. [address] [place] [address] [place] [address] PCP - General Family Medicine 09/28/23 documented as of this encounter
--- OUTSIDE RECORDS SUMMARY | 2023-12-30 07:23 | XMS_ITS | Encounter Summary ---
Author Name Unknown Organization [facility] Address [address] [place] [address] Care Team Providers Care Personal Injury Law Specialist Name Role Phone Kylah Crum M.D. Primary Care Provider [phone] Encounter Details Date Type Department Care Team (Latest Contact Info) Description 10/05/2023 10:20 AM SUPERVISOR SEWING ROOM - 10/05/2023 11:59 PM [facility] Hospital Encounter Department of Laboratory Medicine in [place], [place] [address] [place] [phone] Kylah Crum M.D. [address] [place] [phone] Coronary Arterial Bypass Graft Status Post Personal History; Cardiac Surgery Status Post; Bypass Coronary Artery Graft Status Post; Prosthesis Aortic Valve; Computer Information Systems Instructor (Current) Anticoagulant Treatment; Monitoring For Therapeutic Drug [...] living situation today? I have a [facility] place to live 08/29/2023 Sex and [...] Contact Info) Description 01/04/2024 10:30 AM SUPERVISOR SEWING ROOM Comprehensive Visit Division of Hematology in [place], [place] [address] [place] [address] Brandy Real M.D., M.B.A. [address] [place] [address] documented as of this encounter Procedures Procedure Name Priority Date/Time Associated Diagnosis Comments INR REFLEX, POCT, B Routine 10/05/2023 10:35 AM SUPERVISOR SEWING ROOM Coronary Arterial Bypass Graft Status Post Personal History Cardiac Surgery Status Post Bypass Coronary Artery Graft Status Post Prosthesis Aortic Valve Computer Information Systems Instructor (Current) Anticoagulant Treatment Monitoring For Therapeutic Drug Therapy documented in this encounter Results * INR Reflex, POCT, Blood (10/05/2023 10:35 AM SUPERVISOR SEWING ROOM) INR Reflex, POCT, B 1.7 10/05/2023 10:35 AM SUPERVISOR SEWING ROOM [id number] Comment: ----ADDITIONAL INFORMATION---- Standard intensity warfarin therapeutic range: 2.0 to 3.0 ?? High intensity warfarin therapeutic range: 2.5 to 3.5 Blood (Blood, Capillary) 10/05/2023 10:35 AM SUPERVISOR SEWING ROOM 10/05/2023 10:35 AM SUPERVISOR SEWING ROOM Kylah Crum M.D. LAB POCT ORDERABLES - DEVICE [facility] [address] [place] [address], [facility] FB60 [facility] in [place] [address] [place] [address] documented in this encounter Visit Diagnoses Diagnosis Coronary Arterial Bypass Graft Status Post Personal History Cardiac Surgery Status Post Bypass Coronary Artery Graft Status Post Prosthesis Aortic Valve Computer Information Systems Instructor (Current) Anticoagulant Treatment Monitoring For Therapeutic Drug Therapy documented in this encounter Additional Health Concerns Assessment Noted Time PHQ-9 Depression Total Score: 1 09/10/20 23 2:06 PM CDT documented as of this encounter Care Teams Personal Injury Law Specialist Relationship Specialty Start Date End Date Kylah Crum M.D. [address] [place] [address] PCP - General Family Medicine 09/28/23 documented as of this encounter
--- OUTSIDE RECORDS SUMMARY | 2023-12-30 07:23 | XMS_ITS | Encounter Summary ---
Author Name Unknown Organization [facility] Address [address] [place] [address] Care Team Providers Care Vineyard Tender Name Role Phone Kylah Crum M.D. Primary Care Provider [phone] Reason for Visit * Outpatient (Routine) - Canceled Specialty Diagnoses / Procedures Referred By Sebas t Referred To Contact Anticoagulation Diagnoses Coronary Arterial Bypass Graft Status Post Personal History Cardiac Surgery Status Post Bypass Coronary Artery Graft Status Post Prosthesis Aortic Valve Kylah Crum M.D. [address] [place] [address] [facility] Referral ID Status Reason Start Date Expiration Date V isits Requested Visits Authorized [id number] Canceled 10/01/2023 09/30/2026 300 300 Encounter Details Date Type Department Care Team (Latest Contact Info) Description 10/08/2023 3:00 PM HAND COLLATOR Anticoagulation Visit Department of Anticoagulation in [place], [place] [address] [place] [address] Kylah Crum M.D. [address] [place] [address] Mcfp (Current) Anticoagulant Treatment (Primary Dx); Coronary Arterial [...] your living situation today? I have a [facility] place to live 08/29/2023 Sex and Gender Information Value Date Recorded Sex Assigned at Male 08/29/2023 11:06 AM CDT Gender Identity Male 08/29/2023 11:06 AM CDT Sexual Orientation Straight 08/29/2023 11 :06 AM CDT documented as of this encounter Patient Instructions * Patient Instructions* Jana Cason R.N. - 10/08/2023 3:00 PM HAND COLLATOR Your next INR will be 10/12/23. You will need to call the Anticoagulation Program for warfarin dosing at the scheduled time for your nurse visit, as indicated on your Patient Appointment Guide (PAG). To reschedule your appointment or for questions about your warfarin, please call Primary Care Anticoagulation Program at [phone] from 7:30 am to 4:30 pm. Sunday-Sunday [...] if you start any herbal or other tixe-vaf-laoaagu product (check with your doctor, a nurse, or pharmacist). If you change your diet significantly. If you decide to stop or start using tobacco or alcohol. If you notice unusual bruising or bleeding. If you notice dark, tarry, or bright red stools or blood in your urine. If you have a painful and swollen calf. COLLATOR documented in this encounter Progress Notes * [...] indicated above stating consult required. Consulted Anticoagulation [facility] for plan. Currently bridging: no. INR [...] questions. Total time spent with patient: N/A COLLATOR documented in this encounter Plan of Treatment Upcoming Encounters Date Type Department Care Team (Late st Contact Info) Description 01/04/2024 10:30 AM HAND COLLATOR Comprehensive Visit Division of Hematology in [place], [place] [address] [place] [address] Brandy Real M.D., M.B.A. [address] [place] [address] documented as of this encounter Results * INR Reflex, POCT, Blood (10/12/2023 11:03 AM HAND COLLATOR) INR Reflex, POCT, B 2.5 10/12/2023 11:02 AM HAND COLLATOR [id number] Comment: ----ADDITIONAL INFORMATION---- Standard intensity warfarin therapeutic range: 2.0 to 3.0 ?? High intensity warfarin therapeutic range: 2.5 to 3.5 Blood (Blood, Capillary) 10/12/2023 11:03 AM HAND COLLATOR 10/12/2023 11:02 AM HAND COLLATOR Kylah Crum M.D. LAB POCT ORDERABLES - DEVICE - [facility] [address] [place] [address], [facility] FB60 [facility] in [place] [address] [place] [address] documented in this encounter Visit Diagnoses Diagnosis Mcfp (Current) Anticoagulant Treatment- 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 History Cardiac Surgery Status Post Bypass Coronary Artery Graft Status Post Prosthesis Aortic Valve Monitoring For Therapeutic Drug Therapy documented in this encounter Additional Health Concerns Assessment Noted Time PHQ-9 Depression Total Score: 1 09/10/20 23 2:06 PM CDT documented as of this encounter Care Teams Vineyard Tender Relationship Specialty Start Date End Date Kylah Crum M.D. [address] [place] [address] PCP - General Family Medicine 09/28/23 documented as of this encounter
--- OUTSIDE RECORDS SUMMARY | 2023-12-30 07:23 | XMS_ITS | Encounter Summary ---
Author Name Unknown Organization [facility] Address [address] [place] [address] Care Team Providers Care Apprentice Cook Name Role Phone Kylah Crum M.D. Primary Care Provider [phone] Reason for Visit * Outpatient (Routine) - Canceled Specialty Diagnoses / Procedures Referred By Sebas t Referred To Contact Anticoagulation Diagnoses Coronary Arterial Bypass Graft Status Post Personal History Cardiac Surgery Status Post Bypass Coronary Artery Graft Status Post Prosthesis Aortic Valve Kylah Crum M.D. [address] [place] [address] [facility] Referral ID Status Reason Start Date Expiration Date V isits Requested Visits Authorized [id number] Canceled 10/01/2023 09/30/2026 300 300 Encounter Details Date Type Department Care Team (Latest Contact Info) Description 10/05/2023 11:00 AM BELTING INSPECTOR Anticoagulation Visit Department of Anticoagulation in [place], [place] [address] [place] [address] Kylah Crum M.D. [address] [place] [address] [facility] (Current) Anticoagulant Treatment (Primary [...] your living situation today? I have a [facility] place to live 08/29/2023 Sex and Gender Information Value Date Recorded Sex Assigned at Male 08/29/2023 11:06 AM CDT Gender Identity Male 08/29/2023 11:06 AM CDT Sexual Orientation Straight 08/29/2023 11 :06 AM CDT documented as of this encounter Patient Instructions * Patient Instructions* Tatiana Chen R.N. - 10/05/2023 11:00 AM BELTING INSPECTOR Your next INR will be 10/08/23. You will need to call the Anticoagulation Program for warfarin dosing at the scheduled time for your nurse visit, as indicated on your Patient Appointment Guide (PAG). To reschedule your appointment or for questions about your warfarin, please call Primary Care Anticoagulation Program at [phone] from 7:30 am to 4:30 pm. Sunday-Sunday [...] if you start any herbal or other ddnu-rya-uqjgvap product (check with your doctor, a nurse, or pharmacist). If you change your diet significantly. If you decide to stop or start using tobacco or alcohol. If you notice unusual bruising or bleeding. If you notice dark, tarry, or bright red stools or blood in your urine. If you have a painful and swollen calf. ING INSPECTOR documented in this encounter Progress Notes [...] questions. Total time spent with patient: N/A ING INSPECTOR documented in this encounter Plan of Treatment Upcoming Encounters Date Type Department Care Team (Late st Contact Info) Description 01/04/2024 10:30 AM BELTING INSPECTOR Comprehensive Visit Division of Hematology in [place], [place] [address] [place] [address] Brandy Real M.D., M.B.A. [address] [place] [address] documented as of this encounter Results * INR Reflex, POCT, Blood (10/08/2023 12:52 PM BELTING INSPECTOR) INR Reflex, POCT, B 1.8 10/08/2023 12:51 PM BELTING INSPECTOR [id number] Comment: ----ADDITIONAL INFORMATION---- Standard intensity warfarin therapeutic range: 2.0 to 3.0 ?? High intensity warfarin therapeutic range: 2.5 to 3.5 Blood (Blood, Capillary) 10/08/2023 12:52 PM BELTING INSPECTOR 10/08/2023 12:51 PM BELTING INSPECTOR yKlah Crum M.D. LAB POCT ORDERABLES - DEVICE [facility] [address] [place] [address], [facility] FB60 [facility] in [place] [address] [place] [address] documented in this encounter Visit Diagnoses Diagnosis [...] documented as of this encounter Care Teams Apprentice Cook Relationship Specialty Start Date End Date Ayuob, Mysoon M, M.D. [address] [place] [address] [place] [phone] PCP - General Family Medicine 09/28/23 documented as of this encounter
--- OUTSIDE RECORDS SUMMARY | 2023-12-30 07:23 | XMS_ITS | Encounter Summary ---
Author Name Unknown Organization [facility] Address [address] [place] [address] Care Team Providers Care Outsole Leveler Name Role Phone Kylah Crum M.D. Primary Care Provider [phone] Encounter Details Date Type Department Care Team (Latest Contact Info) Description 10/17/2023 11:00 AM AGING DEPARTMENT SUPERVISOR - 10/17/2023 11:59 PM [facility] Hospital Encounter Department of Laboratory Medicine in [place], [place] [address] [place] [phone] Kylah Crum M.D. [address] [place] [phone] Coronary Arterial Bypass Graft Status Post Personal History; Cardiac Surgery Status Post; Bypass Coronary Artery Graft Status Post; Prosthesis Aortic Valve; Air Bag Curer (Current) Anticoagulant Treatment; Monitoring For Therapeutic Drug [...] your living situation today? I have a [facility] place to live 08/29/2023 Sex and [...] st Contact Info) Description 01/04/2024 10:30 AM AGING DEPARTMENT SUPERVISOR Comprehensive Visit Division of Hematology in [place], [place] [address] [place] [address] Brandy Real M.D., M.B.A. [address] [place] [address] documented as of this encounter Procedures Procedure Name Priority Date/Time Associated Diagnosis Comments INR REFLEX, POCT, B Routine 10/17/2023 11:22 AM AGING DEPARTMENT SUPERVISOR Coronary Arterial Bypass Graft Status Post Personal History Cardiac Surgery Status Post Bypass Coronary Artery Graft Status Post Prosthesis Aortic Valve Air Bag Curer (Current) Anticoagulant Treatment Monitoring For Therapeutic Drug Therapy documented in this encounter Results * INR Reflex, POCT, Blood (10/17/2023 11:22 AM AGING DEPARTMENT SUPERVISOR) INR Reflex, POCT, B 4.2 10/17/2023 11:21 AM AGING DEPARTMENT SUPERVISOR [id number] Comment: ----ADDITIONAL INFORMATION---- Standard intensity warfarin therapeutic range: 2.0 to 3.0 ?? High intensity warfarin therapeutic range: 2.5 to 3.5 Blood (Blood, Capillary) 10/17/2023 11:22 AM AGING DEPARTMENT SUPERVISOR 10/17/2023 11:21 AM AGING DEPARTMENT SUPERVISOR Kylah Crum M.D. LAB POCT ORDERABLES - DEVICE [facility] [address] [place] [address], [facility] FB60 [facility] in [place] [address] [place] [address] documented in this encounter Visit Diagnoses Diagnosis Coronary Arterial Bypass Graft Status Post Personal History Cardiac Surgery Status Post Bypass Coronary Artery Graft Status Post Prosthesis Aortic Valve Air Bag Curer (Current) Anticoagulant Treatment Monitoring For Therapeutic Drug Therapy documented in this encounter Additional Health Concerns Assessment Noted Time PHQ-9 Depression Total Score: 1 09/10/20 23 2:06 PM CDT documented as of this encounter Care Teams Outsole Leveler Relationship Specialty Start Date End Date Kylah Crum M.D. [address] [place] [address] PCP - General Family Medicine 09/28/23 documented as of this encounter
--- OUTSIDE RECORDS SUMMARY | 2023-12-30 07:23 | XMS_ITS | Encounter Summary ---
Author Name Unknown Organization [facility] Address [address] [place] [address] Care Team Providers Care Lcsw Name Role Phone Kylah Crum M.D. Primary Care Provider Encounter Details Date Type Department Care Team (Latest Contact Info) Description 10/22/2023 11:20 AM MANAGER SHOP - 10/22/2023 11:59 PM [facility] Hospital Encounter Department of Laboratory Medicine in [place], [place] [address] [place] [phone] yKlah Crum M.D. [address] [place] [phone] Coronary Arterial Bypass Graft Status Post Personal History; Cardiac Surgery Status Post; Bypass Coronary Artery Graft Status Post; Prosthesis Aortic Valve; Military Equipment Specialist (Current) Anticoagulant Treatment; Monitoring For Therapeutic Drug [...] st Contact Info) Description 01/04/2024 10:30 AM MANAGER SHOP Comprehensive Visit Division of Hematology in [place], [place] [address] [place] [address] Brandy Real M.D., M.B.A. [address] [place] [address] documented as of this encounter Procedures Procedure Name Priority Date/Time Associated Diagnosis Comments INR REFLEX, POCT, B Routine 10/22/2023 11:32 AM MANAGER SHOP Coronary Arterial Bypass Graft Status Post Personal History Cardiac Surgery Status Post Bypass Coronary Artery Graft Status Post Prosthesis Aortic Valve Military Equipment Specialist (Current) Anticoagulant Treatment Monitoring For Therapeutic Drug Therapy documented in this encounter Results * INR Reflex, POCT, Blood (10/22/2023 11:32 AM MANAGER SHOP) INR Reflex, POCT, B 3.6 10/22/2023 11:32 AM MANAGER SHOP [id number] Comment: ----ADDITIONAL INFORMATION---- Standard intensity warfarin therapeutic range: 2.0 to 3.0 ?? High intensity warfarin therapeutic range: 2.5 to 3.5 Blood (Blood, Capillary) 10/22/2023 11:32 AM MANAGER SHOP 10/22/2023 11:32 AM MANAGER SHOP Kylah Crum M.D. LAB POCT ORDERABLES - DEVICE [facility] [address] [place] [address], [facility] FB60 [facility] in [place] [address] [place] [address] documented in this encounter Visit Diagnoses Diagnosis Coronary Arterial Bypass Graft Status Post Personal History Cardiac Surgery Status Post Bypass Coronary Artery Graft Status Post Prosthesis Aortic Valve Military Equipment Specialist (Current) Anticoagulant Treatment Monitoring For Therapeutic Drug Therapy documented in this encounter Additional Health Concerns Assessment Noted Time PHQ-9 Depression Total Score: 1 09/10/20 23 2:06 PM CDT documented as of this encounter Care Teams Lcsw Relationship Specialty Start Date End Date Kylah Crum M.D. [address] [place] [address] PCP - General Family Medicine 09/28/23 documented as of this encounter
--- OUTSIDE RECORDS SUMMARY | 2023-12-30 07:23 | XMS_ITS | Encounter Summary ---
Author Name Unknown Organization [facility] Address [address] [place] [address] Care Team Providers Care Fairing Man Name Role Phone Kylah Crum M.D. Primary Care Provider [phone] Reason for Visit * Outpatient (Routine) - Canceled Specialty Diagnoses / Procedures Referred By Sebas t Referred To Contact Anticoagulation Diagnoses Coronary Arterial Bypass Graft Status Post Personal History Cardiac Surgery Status Post Bypass Coronary Artery Graft Status Post Prosthesis Aortic Valve Kylah Crum M.D. [address] [place] [address] [facility] Referral ID Status Reason Start Date Expiration Date V isits Requested Visits Authorized [id number] Canceled 10/01/2023 09/30/2026 300 300 Encounter Details Date Type Department Care Team (Latest Contact Info) Description 10/26/2023 11:30 AM SOUND RECORDIST Anticoagulation Visit Department of Anticoagulation in [place], [place] [address] [place] [address] Kylah Crum M.D. [address] [place] [address] Diabetes Mellitus Type 2 (HCC) (Primary Dx); Coronary Arterial Bypass Graft Status Post Personal History; Cardiac Surgery Status Post; Bypass Coronary Artery Graft Status Post; Prosthesis Aortic Valve; Longterm (Current) Anticoagulant Treatment; Monitoring For Therapeutic Drug [...] Crystal Goodson R.N. - 10/26/2023 11:30 AM SOUND RECORDIST Your next INR will be 10/29/2023. You will need to call the Anticoagulation Program for warfarin dosing at the scheduled time for your nurse visit, as indicated on your Patient Appointment Guide (PAG). To reschedule your appointment or for questions about your warfarin, please call Primary Care Anticoagulation Program at [phone] from 7:30 am to 4:30 pm. Sunday-Sunday [...] if you start any herbal or other oaud-khy-hqnnmhm product (check with your doctor, a nurse, or pharmacist). If you change your diet significantly. If you decide to stop or start using tobacco or alcohol. If you notice unusual bruising or bleeding. If you notice dark, tarry, or bright red stools or blood in your urine. If you have a painful and swollen calf. D RECORDIST documented in this encounter Progress Notes * [...] portal. Total time spent with patient: N/A D RECORDIST documented in this encounter Plan of Treatment Upcoming Encounters Date Type Department Care Team (Late st Contact Info) Description 01/04/2024 10:30 AM SOUND RECORDIST Comprehensive Visit Division of Hematology in [place], [place] [address] [place] [address] Brandy Real M.D., M.B.A. [address] [place] [address] documented as of this encounter Results * INR Reflex, POCT, Blood (10/29/2023 12:50 PM SOUND RECORDIST) INR Reflex, POCT, B 2.7 10/29/2023 12:49 PM SOUND RECORDIST [id number] Comment: ----ADDITIONAL INFORMATION---- Standard intensity warfarin therapeutic range: 2.0 to 3.0 ?? High intensity warfarin therapeutic range: 2.5 to 3.5 Blood (Blood, Capillary) 10/29/2023 12:50 PM SOUND RECORDIST 10/29/2023 12:49 PM SOUND RECORDIST Kylah Crum M.D. LAB POCT ORDERABLES - DEVICE [facility] [address] [place] [address], [email or web address] FB60 [facility] in [place] [address] [place] [address] documented in this encounter Visit Diagnoses Diagnosis Diabetes Mellitus Type 2 (HCC)- 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 History Cardiac Surgery Status Post Bypass Coronary Artery Graft Status Post Prosthesis Aortic Valve Longterm (Current) Anticoagulant Treatment Monitoring For Therapeutic Drug Therapy documented in this encounter Additional Health Concerns Assessment Noted Time PHQ-9 Depression Total Score: 1 09/10/20 23 2:06 PM CDT documented as of this encounter Care Teams Fairing Man Relationship Specialty Start Date End Date Kylah Crum M.D. [address] [place] [address] PCP - General Family Medicine 09/28/23 documented as of this encounter
--- OUTSIDE RECORDS SUMMARY | 2023-12-30 07:23 | XMS_ITS | Encounter Summary ---
Author Name Unknown Organization [facility] Address [address] [place] [address] Care Team Providers Care Emergency Room Physician Assistant Name Role Phone Kylah Crum M.D. Primary Care Provider Encounter Details Date Type Department Care Team (Late st Contact Info) Description 10/15/2023 Episode Changes Department of Cardiovascular Medicine in [place], [place] [address] [place] [address] Cony Calzada, CEP [address] [place] [address] Social History Tobacco Use Types Packs/Day Years [...] st Contact Info) Description 01/04/2024 10:30 AM MEDICAL GENETICS DIRECTOR Comprehensive Visit Division of Hematology in [place], [place] [address] [place] [address] Brandy Real M.D., M.B.A. [address] [place] [address] documented as of this encounter Visit Diagnoses Not on filedocumented in this encounter Additional Health Concerns Assessment Noted Time PHQ-9 Depression Total Score: 1 09/10/20 2:06 PM CDT documented as of this encounter Care Teams Emergency Room Physician Assistant Relationship Specialty Start Date End Date Kylah Crum M.D. [address] [place] [address] PCP - General Family Medicine 09/28/23 documented as of this encounter
--- OUTSIDE RECORDS SUMMARY | 2023-12-30 07:23 | XMS_ITS | Encounter Summary ---
Author Name Unknown Organization [facility] Address [address] [place] [address] Care Team Providers Care Operations Developer Name Role Phone Kylah Crum M.D. Primary Care Provider [phone] Reason for Visit * Outpatient (Routine) - Canceled Specialty Diagnoses / Procedures Referred By Sebas t Referred To Contact Anticoagulation Diagnoses Coronary Arterial Bypass Graft Status Post Personal History Cardiac Surgery Status Post Bypass Coronary Artery Graft Status Post Prosthesis Aortic Valve Kylah Crum M.D. [address] [place] [address] [facility] Referral ID Status Reason Start Date Expiration Date V isits Requested Visits Authorized [id number] Canceled 10/01/2023 09/30/2026 300 300 Encounter Details Date Type Department Care Team (Latest Contact Info) Description 10/22/2023 2:00 PM DIRECTOR OF RADIOLOGY Anticoagulation Visit Department of Anticoagulation in [place], [place] [address] [place] [address] Kylah Crum M.D. [address] [place] [address] Prosthesis Aortic Valve (Primary Dx); Coronary Arterial Bypass Graft Status Post Personal History; Cardiac Surgery Status Post; Bypass Coronary Artery Graft Status Post; Senior Financial Consultant (Current) Anticoagulant Treatment; Monitoring For Therapeutic Drug [...] your living situation today? I have a [facility] place to live 08/29/2023 Sex and Gender Information Value Date Recorded Sex Assigned at Male 08/29/2023 11:06 AM CDT Gender Identity Male 08/29/2023 11:06 AM CDT Sexual Orientation Straight 08/29/2023 11 :06 AM CDT documented as of this encounter Patient Instructions * Patient Instructions* Treva Chavarria R.N. - 10/22/2023 2:00 PM DIRECTOR OF RADIOLOGY Your next INR will be Sunday: 10-26-2023. You will need to call the Anticoagulation Program for warfarin dosing at the scheduled time for your nurse visit, as indicated on your Patient Appointment Guide (PAG). To reschedule your appointment or for questions about your warfarin, please call Primary Care Anticoagulation Program at [phone] from 7:30 am to 4:30 pm. Sunday-Sunday [...] if you start any herbal or other yquu-gtk-rdxwgtm product (check with your doctor, a nurse, or pharmacist). If you change your diet significantly. If you decide to stop or start using tobacco or alcohol. If you notice unusual bruising or bleeding. If you notice dark, tarry, or bright red stools or blood in your urine. If you have a painful and swollen calf. CTOR OF RADIOLOGY documented in this encounter Progress Notes * [...] indicated above stating consult required. Consulted Anticoagulation [facility] for plan. Currently bridging: no. [...] time. Total time spent with patient: N/A CTOR OF RADIOLOGY documented in this encounter Plan of Treatment Upcoming Encounters Date Type Department Care Team (Late st Contact Info) Description 01/04/2024 10:30 AM DIRECTOR OF RADIOLOGY Comprehensive Visit Division of Hematology in [place], [place] [address] [place] [address] Brandy Real M.D., M.B.A. [address] [place] [address] documented as of this encounter Results * INR Reflex, POCT, Blood (10/26/2023 11:36 AM DIRECTOR OF RADIOLOGY) INR Reflex, POCT, B 3.2 10/26/2023 11:35 AM DIRECTOR OF RADIOLOGY [id number] Comment: ----ADDITIONAL INFORMATION---- Standard intensity warfarin therapeutic range: 2.0 to 3.0 ?? High intensity warfarin therapeutic range: 2.5 to 3.5 Blood (Blood, Capillary) 10/26/2023 11:36 AM DIRECTOR OF RADIOLOGY 10/26/2023 11:35 AM DIRECTOR OF RADIOLOGY Kylah Crum M.D. LAB POCT ORDERABLES - DEVICE [facility] [address] [place] [address], [facility] FB60 [facility] in [place] [address] [place] [address] documented in this encounter Visit Diagnoses Diagnosis Prosthesis Aortic Valve- 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 History Cardiac Surgery Status Post Bypass Coronary Artery Graft Status Post Prison (Current) Anticoagulant Treatment Monitoring For Therapeutic Drug Therapy Diabetes Mellitus Type 2 (HCC) documented in this encounter Additional Health Concerns Assessment Noted Time PHQ-9 Depression Total Score: 1 09/10/20 23 2:06 PM CDT documented as of this encounter Care Teams Operations Developer Relationship Specialty Start Date End Date Kylah Crum M.D. [address] [place] [address] PCP - General Family Medicine 09/28/23 documented as of this encounter
--- OUTSIDE RECORDS SUMMARY | 2023-12-30 07:23 | XMS_ITS | Encounter Summary ---
Author Name Unknown Organization [facility] Address [address] [place] [address] Care Team Providers Care Case Worker Name Role Phone Kylah Crum M.D. Primary Care Provider Reason for Referral * Outpatient (Routine) - Authorized Specialty Diagnoses / Procedures Referred By Sebas gimenez Referred To Contact Diagnoses Screening Abdominal Aortic Aneurysm Procedures US Aorta AAA Screening Kylah Crum M.D. [address] [place] [address] [facility] Region Referral ID Status Reason Start Date Expiration Date V isits Requested Visits Authorized [id number] Authorized 10/16/2023 10/15/2024 1 1 UME DRAPER Encounter Details Date Type Department Care Team (Late st Contact Info) Description 10/16/2023 Orders Only [facility] Kylah Crum M.D. [address] [place] [address] Screening Abdominal Aortic Aneurysm; Diabetes [...] st Contact Info) Description 01/04/2024 10:30 AM COSTUME DRAPER Comprehensive Visit Division of Hematology in [place], [place] [address] [place] [address] Brandy Real M.D., M.B.A. [address] [place] [address] Scheduled Orders Name Type Priority Associated Diagnoses [...] documented as of this encounter Care Teams Case Worker Relationship Specialty Start Date End Date Kylah Crum M.D. [address] [place] [phone] PCP - General Family Medicine 09/28/23 documented as of this encounter
--- OUTSIDE RECORDS SUMMARY | 2023-12-30 07:23 | XMS_ITS | Encounter Summary ---
Author Name Unknown Organization [facility] Address [address] [place] [address] Care Team Providers Care Spd Manager Name Role Phone Kylah Crum M.D. Primary Care Provider [phone] Reason for Visit * Outpatient (Routine) - Canceled Specialty Diagnoses / Procedures Referred By Sebas t Referred To Contact Anticoagulation Diagnoses Coronary Arterial Bypass Graft Status Post Personal History Cardiac Surgery Status Post Bypass Coronary Artery Graft Status Post Prosthesis Aortic Valve Kylah Crum M.D. [address] [place] [address] [facility] Referral ID Status Reason Start Date Expiration Date V isits Requested Visits Authorized [id number] Canceled 10/01/2023 09/30/2026 300 300 Encounter Details Date Type Department Care Team (Latest Contact Info) Description 10/17/2023 2:00 PM COMPLAINT ADJUSTER Anticoagulation Visit Department of Anticoagulation in [place], [place] [address] [place] [address] Kylah Crum M.D. [address] [place] [address] Prosthesis Aortic Valve (Primary Dx); Coronary Arterial Bypass Graft Status Post Personal History; Cardiac Surgery Status Post; Bypass Coronary Artery Graft Status Post; Customer Account Representative (Current) Anticoagulant Treatment; Monitoring For Therapeutic Drug [...] Edna Quinones R.N. - 10/17/2023 2:00 PM COMPLAINT ADJUSTER Your next INR will be 10/22/2023. You will need to call the Anticoagulation Program for warfarin dosing at the scheduled time for your nurse visit, as indicated on your Patient Appointment Guide (PAG). To reschedule your appointment or for questions about your warfarin, please call Primary Care Anticoagulation Program at [phone] from 7:30 am to 4:30 pm. Sunday-Sunday [...] if you start any herbal or other kjee-zep-bzdfdeg product (check with your doctor, a nurse, or pharmacist). If you change your diet significantly. If you decide to stop or start using tobacco or alcohol. If you notice unusual bruising or bleeding. If you notice dark, tarry, or bright red stools or blood in your urine. If you have a painful and swollen calf. LAINT ADJUSTER documented in this encounter Progress Notes * [...] indicated above stating consult required. Consulted Anticoagulation [facility] for plan. Currently bridging: no. INR is therapeutic/supratherapeutic. Additional dosing or follow-up information: Provider consulted: Kelsey Renee- Anticoagulation [facility] Pt is on injectable anticoagulant: No. Plan used: Consult. See Anticoagulation Track Calendar for dosing and plan details. Anticoagulation Visit Summary: Patient repeats back dosing instructions, date of next INR, and has no further questions at this time. Total time spent with patient: 30 minutes LAINT ADJUSTER documented in this encounter Plan of Treatment Upcoming Encounters Date Type Department Care Team (Late st Contact Info) Description 01/04/2024 10:30 AM COMPLAINT ADJUSTER Comprehensive Visit Division of Hematology in [place], [place] [address] [place] [address] Brandy Real M.D., M.B.A. [address] [place] [address] documented as of this encounter Results * INR Reflex, POCT, Blood (10/22/2023 11:32 AM COMPLAINT ADJUSTER) INR Reflex, POCT, B 3.6 10/22/2023 11:32 AM COMPLAINT ADJUSTER [id number] Comment: ----ADDITIONAL INFORMATION---- Standard intensity warfarin therapeutic range: 2.0 to 3.0 ?? High intensity warfarin therapeutic range: 2.5 to 3.5 Blood (Blood, Capillary) 10/22/2023 11:32 AM COMPLAINT ADJUSTER 10/22/2023 11:32 AM COMPLAINT ADJUSTER Kylah Crum M.D. LAB POCT ORDERABLES - DEVICE [facility] [address] [place] [address], [facility] FB60 [facility] [place] [address] [place] [address] documented in this encounter Visit Diagnoses Diagnosis Prosthesis Aortic Valve- 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 History Cardiac Surgery Status Post Bypass Coronary Artery Graft Status Post Customer Account Representative (Current) Anticoagulant Treatment Monitoring For Therapeutic Drug Therapy documented in this encounter Additional Health Concerns Assessment Noted Time PHQ-9 Depression Total Score: 1 09/10/20 23 2:06 PM CDT documented as of this encounter Care Teams Spd Manager Relationship Specialty Start Date End Date Kylah Crum M.D. [address] [place] [address] PCP - General Family Medicine 09/28/23 documented as of this encounter
--- OUTSIDE RECORDS SUMMARY | 2023-12-30 07:24 | XMS_ITS | Encounter Summary ---
Author Name Unknown Organization [facility] Address [address] [place] [address] Care Team Providers Care Monitor And Storage Bin Tender Name Role Phone Kylah Crum M.D. Primary Care Provider Encounter Details Date Type Department Care Team (Latest Contact Info) Description 10/01/2023 11:50 AM [facility] Hospital Encounter Department of Laboratory Medicine in [place], [place] [address] [place] [phone] Kylah Crum M.D. [address] [place] [phone] Coronary Arterial Bypass Graft Status Post Personal [...] your living situation today? I have a [facility] place to live 08/29/2023 Sex and [...] st Contact Info) Description 01/04/2024 10:30 AM RESPIRATORY MEDICINE PHYSICIAN Comprehensive Visit Division of Hematology in [place], [place] [address] [place] [address] Brandy Real M.D., M.B.A. [address] [place] [address] documented as of this encounter Procedures Procedure Name Priority Date/Time Associated Diagnosis Comments INR REFLEX, POCT, B Routine 10/01/2023 1 2:02 PM RESPIRATORY MEDICINE PHYSICIAN Coronary Arterial Bypass Graft Status Post Personal History Cardiac Surgery Status Post Bypass Coronary Artery Graft Status Post Prosthesis Aortic Valve documented in this encounter Results * INR Reflex, POCT, Blood (10/01/2023 12:02 PM RESPIRATORY MEDICINE PHYSICIAN) INR Reflex, POCT, B 2.0 10/01/2023 12:01 PM RESPIRATORY MEDICINE PHYSICIAN [id number] Comment: ----ADDITIONAL INFORMATION---- Standard intensity warfarin therapeutic range: 2.0 to 3.0 ?? High intensity warfarin therapeutic range: 2.5 to 3.5 Blood (Blood, Capillary) 10/01/2023 12:02 PM RESPIRATORY MEDICINE PHYSICIAN 10/01/2023 12:01 PM RESPIRATORY MEDICINE PHYSICIAN Kylah Crum M.D. LAB POCT ORDERABLES - DEVICE [facility] [address] [place] [address], [facility] FB60 [facility] in [place] [address] [place] [address] documented in this encounter Visit Diagnoses Diagnosis Coronary Arterial Bypass Graft Status Post Personal History Cardiac Surgery Status Post Bypass Coronary Artery Graft Status Post Prosthesis Aortic Valve documented in this encounter Additional Health Concerns Assessment Noted Time PHQ-9 Depression Total Score: 1 09/10/20 23 2:06 PM CDT documented as of this encounter Care Teams Monitor And Storage Bin Tender Relationship Specialty Start Date End Date Kylah Crum M.D. [address] [place] [phone] PCP - General Family Medicine 09/28/23 documented as of this encounter
--- OUTSIDE RECORDS SUMMARY | 2023-12-30 07:24 | XMS_ITS | Encounter Summary ---
Author Name Unknown Organization [facility] Address [address] [place] [address] Care Team Providers Care Roll Mill Operator Name Role Phone Kylah Crum M.D. Primary Care Provider Encounter Details Date Type Department Care Team (Latest Contact Info) Description 09/28/2023 1:33 PM GUEST RELATIONS EXECUTIVE - 09/28/2023 11:59 PM [facility] Hospital Encounter Department of Laboratory Medicine in [address] [phone] Sammi Kothari, PIERRE, C.N.P., D.N.P. [address] [place] [phone] Prosthesis Aortic Valve Discharge Disposition: Home or [...] st Contact Info) Description 01/04/2024 10:30 AM GUEST RELATIONS EXECUTIVE Comprehensive Visit Division of Hematology in [place], [place] [address] [place] [address] Brandy Real M.D., M.B.A. [address] [place] [address] documented as of this encounter Procedures Procedure Name Priority Date/Time Associated Diagnosis Comments PROTHROMBIN TIME (PT), P Routine 09/28/2023 1:41 PM GUEST RELATIONS EXECUTIVE Prosthesis Aortic Valve documented in this encounter Results * (ABNORMAL) Prothrombin Time (PT) (09/28/2023 1:41 PM GUEST RELATIONS EXECUTIVE) Prothrombin Time, P 18.4(H) 9.4 - 12.5 sec 09/28/2023 4:01 PM GUEST RELATIONS EXECUTIVE OWAT INR 1.6 0.9 - 1.1 09/28/2023 4:01 PM GUEST RELATIONS EXECUTIVE OWAT Comment: ----ADDITIONAL INFORMATION---- Standard intensity warfarin therapeutic range: 2.0 to 3.0 ?? High intensity warfarin therapeutic range: 2.5 to 3.5 Blood (Blood, Venous) 09/28/2023 1:41 PM GUEST RELATIONS EXECUTIVE 09/28/2023 3:32 PM GUEST RELATIONS EXECUTIVE Sammi Kothari APRN C.N.P., D.N.P. LAB BL OOD ADD-ON [facility] [address] [place] [address], [facility] [address] [facility] in [place] [address] [place] [address] documented in this encounter Visit Diagnoses Diagnosis Prosthesis Aortic Valve documented in this encounter Additional Health Concerns Assessment Noted Time PHQ-9 Depression Total Score: 1 09/10/20 23 2:06 PM CDT documented as of this encounter Care Teams Roll Mill Operator Relationship Specialty Start Date End Date Kylah Crum M.D. [address] [place] [phone] PCP - General Family Medicine 09/28/23 documented as of this encounter
--- OUTSIDE RECORDS SUMMARY | 2023-12-30 07:24 | XMS_ITS | Encounter Summary ---
Author Name Unknown Organization [facility] Address [address] [place] [address] Care Team Providers Care Hand Silvering Supervisor Name Role Phone Kylah Crum M.D. Primary Care Provider [phone] Reason for Visit * Outpatient (Routine) - Closed Specialty Diagnoses / Procedures Referred By Sebas gimenez Referred To Contact Nephrology and Hypertension Diagnoses Chronic Kidney Disease Stage 4 Glomerular Filtration Rate 15-29 (HCC) Procedures Nephrology - Chronic renal failure eConsult Kylah Crum M.D. [address] [place] [phone] [facility] Referral ID Status Reason Start Date Expiration Date Visits Re quested Visits Authorized [id number] Closed 10/01/2023 09/30/2024 1 1 Encounter Details Date Type Department Care Team (Latest Contact Info) Description 10/02/2023 4:45 PM EARTH BURNER Internal E-Consult Division of Nephrology and Hypertension in [place], [place] [address] [place] [address] Pavan May M.D. [address] [place] [phone] Elevated Creatinine (Primary Dx); Failure Renal Acute [...] your living situation today? I have a [facility] place to live 08/29/2023 Sex and [...] for GFR. Avoid nephrotoxins. Abiola May M.D. H BURNER documented in this encounter Plan of Treatment Upcoming Encounters Date Type Department Care Team (Late st Contact Info) Description 01/04/2024 10:30 AM EARTH BURNER Comprehensive Visit Division of Hematology in [place], [place] [address] [place] [address] Brandy Real M.D., M.B.A. [address] [place] [address] documented as of this encounter Visit Diagnoses Diagnosis Elevated Creatinine- Primary Failure Renal Acute (Acute Kidney Injury) (HCC) documented in this encounter Additional Health Concerns Assessment Noted Time PHQ-9 Depression Total Score: 1 09/10/20 23 2:06 PM CDT documented as of this encounter Care Teams Hand Silvering Supervisor Relationship Specialty Start Date End Date Kylah Crum M.D. [address] [place] [phone] PCP - General Family Medicine 09/28/23 documented as of this encounter
--- OUTSIDE RECORDS SUMMARY | 2023-12-30 07:24 | XMS_ITS | Encounter Summary ---
Author Name Unknown Organization [facility] Address [address] [place] [address] Care Team Providers Care Software Engineer Web Applications Name Role Phone Kylah Crum M.D. Primary Care Provider [phone] Reason for Visit * Reason Onset Date Comments Results 10/02/2023 Encounter Details Date Type Department Care Team (Late st Contact Info) Description 10/02/2023 Clinical Communication Department of Family Medicine, [facility], in [place], [place] [address] [place] [address] Kylah Crum M.D. [address] [place] [address] Results Social History Tobacco Use [...] Katya Brito, L.P.N. - 10/02/2023 9:13 AM AURICULAR THERAPIST Left message for patient to return call to clinic. Does the patient need to speak to nursing? yes Action needed: ----- Message from Kylah Crum M.D. sent at 10/01/2023 4:54 PM AURICULAR THERAPIST ----- Kidney function test is stable. CULAR THERAPIST * Telephone Encounter - Katya Brito LJarrettPJarrettN. - 10/02/2023 9:13 AM AURICULAR THERAPIST ----- Message from Kylah Crum M.D. sent at 10/01/2023 4:54 PM AURICULAR THERAPIST ----- Kidney function test is stable. CULAR THERAPIST documented in this encounter Plan of Treatment Upcoming Encounters Date Type Department Care Team (Late st Contact Info) Description 01/04/2024 10:30 AM AURICULAR THERAPIST Comprehensive Visit Division of Hematology in [place], [place] [address] [place] [address] Brandy Real M.D., M.B.A. [address] [place] [phone] documented as of this encounter Visit Diagnoses Not on filedocumented in this encounter Additional Health Concerns Assessment Noted Time PHQ-9 Depression Total Score: 1 09/10/20 2:06 PM CDT documented as of this encounter Care Teams Software Engineer Web Applications Relationship Specialty Start Date End Date Kylah Crum M.D. [address] [place] [phone] PCP - General Family Medicine 09/28/23 documented as of this encounter
--- OUTSIDE RECORDS SUMMARY | 2023-12-30 07:24 | XMS_ITS | Encounter Summary ---
Author Name Unknown Organization [facility] Address [address] [place] [address] Care Team Providers Care Latex Dipper Name Role Phone Kylah Crum M.D. Primary Care Provider Encounter Details Date Type Department Care Team (Latest Contact Info) Description 09/28/2023 Clinical Communication Department of Cardiovascular Surgery in [place], [place] [address] [place] [phone] Sammi Kothari, PIERRE, C.N.P., D.N.P. [address] [place] [address] Social History Tobacco Use Types Packs/Day Years [...] D.N.P. - 09/28/2023 4:36 PM CST This comic book writer received a call regarding INR issues. Please see previous communications for more details.This comic book writer did call daughter Fanny [phone] regarding the patients INR and dosing. The [facility]Rwas [facility] at [facility] but unable to be dosed. INR today was 1.6. The patient was instructed totake 2 mg (2 tabs) on 09/28, 09/29 and 09/30. We established the patient in the [facility] system and were able to get a referral into the anticogulation clinic who will manage the INR in the future. Next appointment scheduled at the [facility] with INR check on 10/01. UROY BRUSHER OPERATOR documented in this encounter Plan of Treatment Upcoming Encounters Date Type Department Care Team (Late st Contact Info) Description 01/04/2024 10:30 AM CORDUROY BRUSHER OPERATOR Comprehensive Visit Division of Hematology in [place], [place] [address] [place] [address] Brandy Real M.D., M.B.A. [address] [place] [address] documented as of this encounter Visit Diagnoses Not on filedocumented in this encounter Additional Health Concerns Assessment Noted Time PHQ-9 Depression Total Score: 1 09/10/20 23 2:06 PM CDT documented as of this encounter Care Teams Latex Dipper Relationship Specialty Start Date End Date Kylah Crum M.D. [address] [place] [phone] PCP - General Family Medicine 09/28/23 documented as of this encounter
--- OUTSIDE RECORDS SUMMARY | 2023-12-30 07:24 | XMS_ITS | Encounter Summary ---
Author Name Unknown Organization [facility] Address [address] [place] [address] Care Team Providers Care Custom Shoe Designer And Maker Name Role Phone Kylah Crum M.D. Primary Care Provider [phone] Reason for Visit * Outpatient (Routine) - Canceled Specialty Diagnoses / Procedures Referred By Sebas t Referred To Contact Anticoagulation Diagnoses Coronary Arterial Bypass Graft Status Post Personal History Cardiac Surgery Status Post Bypass Coronary Artery Graft Status Post Prosthesis Aortic Valve Kylah Crum M.D. [address] [place] [address] [facility] Referral ID Status Reason Start Date Expiration Date V isits Requested Visits Authorized [id number] Canceled 10/01/2023 09/30/2026 300 300 Encounter Details Date Type Department Care Team (Latest Contact Info) Description 10/01/2023 3:30 PM HUMAN SERVICES PROFESSIONAL Anticoagulation Visit Department of Anticoagulation in [place], [place] [address] [place] [address] Kylah Crum M.D. [address] [place] [address] Prison (Current) Anticoagulant Treatment (Primary [...] your living situation today? I have a [facility] place to live 08/29/2023 Sex and Gender Information Value Date Recorded Sex Assigned at Male 08/29/2023 11:06 AM CDT Gender Identity Male 08/29/2023 11:06 AM CDT Sexual Orientation Straight 08/29/2023 11 :06 AM CDT documented as of this encounter Patient Instructions * Patient Instructions* Lola Cat R.N. - 10/01/2023 3:30 PM HUMAN SERVICES PROFESSIONAL Your next INR will be Thursday October 05, 2023. You will need to call the Anticoagulation Program for warfarin dosing at the scheduled time for your nurse visit, as indicated on your Patient Appointment Guide (PAG). To reschedule your appointment or for questions about your warfarin, please call Primary Care Anticoagulation Program at [phone] from 7:30 am to 4:30 pm. Sunday-Sunday [...] if you start any herbal or other kwes-bjj-oeyjmei product (check with your doctor, a nurse, or pharmacist). If you change your diet significantly. If you decide to stop or start using tobacco or alcohol. If you notice unusual bruising or bleeding. If you notice dark, tarry, or bright red stools or blood in your urine. If you have a painful and swollen calf. N SERVICES PROFESSIONAL documented in this encounter Progress Notes * [...] number for Primary Care Anticoagulation Program is [phone] and office hours are from 7:30 am to 4:30 pm. Sunday-Sunday . They were made aware to contact Anticoagulation staff with Warfarin prescription refill needs, upcoming pr ocedures, changes in health status, medication changes, and inaccurate dosing. N SERVICES PROFESSIONAL * Lola Cat R.N. - 10/01/2023 3:30 [...] open heart surgery about 6 weeks before. N SERVICES PROFESSIONAL documented in this encounter Plan of Treatment Upcoming Encounters Date Type Department Care Team (Late st Contact Info) Description 01/04/2024 10:30 AM HUMAN SERVICES PROFESSIONAL Comprehensive Visit Division of Hematology in [place], [place] [address] [place] [phone] Brandy Real M.D., M.B.A. [address] [place] [phone] documented as of this encounter Results * INR Reflex, POCT, Blood (10/05/2023 10:35 AM HUMAN SERVICES PROFESSIONAL) INR Reflex, POCT, B 1.7 10/05/2023 10:35 AM HUMAN SERVICES PROFESSIONAL [id number] Comment: ----ADDITIONAL INFORMATION---- Standard intensity warfarin therapeutic range: 2.0 to 3.0 ?? High intensity warfarin therapeutic range: 2.5 to 3.5 Blood (Blood, Capillary) 10/05/2023 10:35 AM HUMAN SERVICES PROFESSIONAL 10/05/2023 10:35 AM HUMAN SERVICES PROFESSIONAL Kylah Crum M.D. LAB POCT ORDERABLES - DEVICE [facility] [address] [place] [address], [facility] FB60 [facility] [place] [address] [place] [address] documented in this encounter Visit Diagnoses Diagnosis Instructor Dramatic Arts (Current) Anticoagulant Treatment- 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 History Cardiac Surgery Status Post Bypass Coronary Artery Graft Status Post Prosthesis Aortic Valve Monitoring For Therapeutic Drug Therapy documented in this encounter Additional Health Concerns Assessment Noted Time PHQ-9 Depression Total Score: 1 09/10/20 23 2:06 PM CDT documented as of this encounter Care Teams Custom Shoe Designer And Maker Relationship Specialty Start Date End Date Kylah Crum M.D. [address] [place] [address] [place] [address] PCP - General Family Medicine 09/28/23 documented as of this encounter
--- OUTSIDE RECORDS SUMMARY | 2023-12-30 07:24 | XMS_ITS | Encounter Summary ---
Author Name Unknown Organization [facility] Address [address] [place] [address] Care Team Providers Care School Age Program Teacher Name Role Phone Kylah Crum M.D. Primary Care Provider Reason for Visit * Reason Onset Date Comments Anticoagulation 09/28/2023 Encounter Details Date Type Department Care Team (Latest Contact Info) Description 09/28/2023 Clinical Communication Department of Anticoagulation in [place], [place] [address] [place] [address] Edna Quinones R.N. [address] [place] [address] Anticoagulation Social History Tobacco Use [...] Casandra Loo R.N. - 09/28/2023 3:30 PM FLAVOR ROOM WORKER Information Discussed Called patient to inform him of his options regarding receiving anticoagulation dosing. Patient reports his primary care provider is currently at [facility] and at discharge he was scheduled for an INR and post-hospital visit with his PCP in [place], however, patient states he cancelled those appointment because he cannot drive two hours for his care, especially after heart surgery. Patient is currently living in [place] and he plans to establish with a primary care provider in [place] but has not been able to do so yet. I informed patient that since he does not have a [facility] primary care provider, anticoagulationdosing cannot be provided by our department. Patient was recommended to contact his primary care provider in [place] and call the number on his AVS [...] care: yes The following references were used: [facility] protocols: Anticoagulation Program Enrollment Eligibility Guideline - [place], [facility] Region, [facility] Region . OR ROOM WORKER * Telephone Encounter - Edna Quinones R.N. - 09/28/2023 2:58 PM FLAVOR ROOM WORKER Patient and daughter phone into the Anticoagulation [...] anticoagulation and patient does not have a [place] primary provider. Patient is not aware of [...] called back by end of day at [phone] OR ROOM WORKER documented in this encounter Plan of Treatment Upcoming Encounters Date Type Department Care Team (Late st Contact Info) Description 01/04/2024 10:30 AM FLAVOR ROOM WORKER Comprehensive Visit Division of Hematology in [place], [place] [address] [place] [address] Brandy Real M.D., M.B.A. [address] [place] [address] documented as of this encounter Visit Diagnoses Not on filedocumented in this encounter Additional Health Concerns Assessment Noted Time PHQ-9 Depression Total Score: 1 09/10/20 23 2:06 PM CDT documented as of this encounter Care Teams School Age Program Teacher Relationship Specialty Start Date End Date Kylah Crum M.D. [address] [place] [address] [place] [address] PCP - General Family Medicine 09/28/23 documented as of this encounter
--- OUTSIDE RECORDS SUMMARY | 2023-12-30 07:24 | XMS_ITS | Encounter Summary ---
Author Name Unknown Organization [facility] Address [address] [place] [address] Care Team Providers Care Plastic Process Technician Name Role Phone Kylah Crum M.D. Primary Care Provider Reason for Referral * Outpatient (Routine) - Authorized Specialty Diagnoses / Procedures Referred By Contact Referred To Contact Hematology / Anticoagulation Diagnoses Cardiac Surgery Status Post Coronary Arterial Bypass Graft Status Post Personal History Prosthesis Aortic Valve Bypass Coronary Artery Graft Status Post Sammi Kothari APRN C.N.P., D.N.P. [address] [place] [address] Referral ID Status Reason Start Date Expiration Date Visits Requested Visits Authorized [id number] Authorized Specialty Services Required 09/28/2025 1 1 Scheduling Instructions Per [facility] warfarin management protocols STANT TERMINAL MANAGER * Outpatient (Routine) - Closed Specialty Diagnoses / Procedures Referred By Sebas gimenez Referred To Contact Diagnoses Cardiac Surgery Status Post Coronary Arterial Bypass Graft Status Post Personal History Prosthesis Aortic Valve Bypass Coronary Artery Graft Status Post Sammi Kothari APRN, C.N.P., D.N.P. [address] [place] [phone] [facility] Referral ID Status Reason Start Date Expiration Date Visits Re quested Visits Authorized [id number] Closed 09/28/2023 09/27/2026 1 1 Scheduling Instructions We will be contacting you with more information on this referral. An appointment will be scheduled for you. More information is listed below. STANT TERMINAL MANAGER Encounter Details Date Type Department Care Team (Late st Contact Info) Description 09/28/2023 Clinical Communication [facility] [address] [place] [address] Sarah Miller M.D., M.P.H. [address] [place] [address] Social History Tobacco Use Types Packs/Day Years [...] st Contact Info) Description 01/04/2024 10:30 AM ASSISTANT TERMINAL MANAGER Comprehensive Visit Division of Hematology in [place], [place] [address] [place] [address] Brandy Real M.D., M.B.A. [address] [place] [address] Scheduled Referrals Name Type Priority Associated Diagnoses [...] documented as of this encounter Care Teams Plastic Process Technician Relationship Specialty Start Date End Date Kylah Crum M.D. [address] [place] [phone] PCP - General Family Medicine 09/28/23 documented as of this encounter
--- OUTSIDE RECORDS SUMMARY | 2023-12-30 07:24 | XMS_ITS | Encounter Summary ---
Author Name Unknown Organization [facility] Address [address] [place] [address] Care Team Providers Care Fan Engine Engineer Name Role Phone Kylah Crum M.D. Primary Care Provider Reason for Referral * Specialty Diagnoses / Procedures Referred By Sebas gimenez Referred To Contact [address] [place] [phone] [facility] Referral ID Status Reason Start Date Expiration Date Visits Re quested Visits Authorized SPECIALIST * Outpatient (Routine) - Authorized Specialty Diagnoses / Procedures Referred By Contact Referred To Contact Hematology / Anticoagulation Diagnoses Coronary Arterial Bypass Graft Status Post Personal History Cardiac Surgery Status Post Bypass Coronary Artery Graft Status Post Kylah Crum M.D. [address] [place] [phone] Referral ID Status Reason Start Date Expiration Date Visits Requested Visits Authorized [id number] Authorized Specialty Services Required 3 10/01/2025 1 1 Scheduling Instructions Per [facility] warfarin management protocols SPECIALIST Reason for Visit * Reason Onset Date Comments Anticoagulation 10/01/2023 New enrollment Encounter Details Date Type Department Care Team (Latest Contact Info) Description 10/01/2023 Clinical Communication Department of Anticoagulation in [place], [place] [address] [place] [phone] Nidia Kuhn Anticoagulation (New enrollment) Social History [...] number for Primary Care Anticoagulation Program at [phone] from 7:30 am to 4:30 pm. Sunday-Sunday [...] sent via portal to the patient today. SPECIALIST * Telephone Encounter - Ralf Peralta R.N. - 10/01/2023 9:37 AM TIRE SPECIALIST Reason for admit: Stenosis Aortic Valve, acquired [...] NO See anticoagulation tracker for final plan. SPECIALIST * Telephone Encounter - Nidia Kuhn - 10/01/2023 8:46 AM CST New Primary Care Anticoagulation referral order received. Has the patient previously been enrolled in the Anticoagulation Program? No, Patient has not been previously enrolled in the Anticoagulation Program Does the patient have a Primary Care Provider (PCP) in the [facility] region and have they received [...] list? (Warfarin/Jantoven, Enoxaparin (Lovenox), Heparin)? Yes: Warfarin/Jantoven SPECIALIST documented in this encounter Plan of Treatment Upcoming Encounters Date Type Department Care Team (Late st Contact Info) Description 01/04/2024 10:30 AM TIRE SPECIALIST Comprehensive Visit Division of Hematology in [place], [place] [address] [place] [address] Brandy Real M.D., M.B.A. [address] [place] [address] Scheduled Referrals Name Type Priority Associated Diagnoses [...] INR Reflex, POCT, Blood (10/01/2023 12:02 PM TIRE SPECIALIST) INR Reflex, POCT, B 2.0 10/01/2023 12:01 PM TIRE SPECIALIST [id number] Comment: ----ADDITIONAL INFORMATION---- Standard intensity warfarin therapeutic range: 2.0 to 3.0 ?? High intensity warfarin therapeutic range: 2.5 to 3.5 Blood (Blood, Capillary) 10/01/2023 12:02 PM TIRE SPECIALIST 10/01/2023 12:01 PM TIRE SPECIALIST Kylah Crum M.D. LAB POCT ORDERABLES - DEVICE [facility]- [facility] [address] [place] [address], [facility] FB60 [facility] [address] [place] [address] documented in this encounter Visit Diagnoses Diagnosis [...] documented as of this encounter Care Teams Fan Engine Engineer Relationship Specialty Start Date End Date Kylah Crum M.D. [address] [place] [address] PCP - General Family Medicine 09/28/23 documented as of this encounter
--- OUTSIDE RECORDS SUMMARY | 2023-12-30 07:24 | XMS_ITS | Encounter Summary ---
Author Name Unknown Organization [facility] Address [address] [place] [address] Care Team Providers Care Mine Inspector Federal Name Role Phone Kylah Crum M.D. Primary Care Provider Encounter Details Date Type Department Care Team ([facility] st Contact Info) Description 09/28/2023 Clinical Communication [facility] [address] [place] [phone] Sarah Miller M.D., M.P.H. [address] [place] [phone] Social History Tobacco Use Types Packs/Day Years [...] your living situation today? I have a [facility] place to live 08/29/2023 Sex and Gender Information Value Date Recorded Sex Assigned at Male 08/29/2023 11:06 AM CDT Gender Identity Male 08/29/2023 11:06 AM CDT Sexual Orientation Straight 08/29/2023 11 :06 AM CDT documented as of this encounter Plan of Treatment Upcoming Encounters Date Type Department Care Team (Late st Contact Info) Description 01/04/2024 10:30 AM SUEDE BRUSHER Comprehensive Visit Division of Hematology in [place], [place] [address] [place] [phone] Brandy Real M.D., M.B.A. [address] [place] [phone] documented as of this encounter Results * (ABNORMAL) Prothrombin Time (PT) (09/28/2023 1:41 PM SUEDE BRUSHER) Prothrombin Time, P 18.4(H) 9.4 - 12.5 sec 09/28/2023 4:01 PM SUEDE BRUSHER OWAT INR 1.6 0.9 - 1.1 09/28/2023 4:01 PM SUEDE BRUSHER OWAT Comment: ----ADDITIONAL INFORMATION---- Standard intensity warfarin therapeutic range: 2.0 to 3.0 ?? High intensity warfarin therapeutic range: 2.5 to 3.5 Blood (Blood, Venous) 09/28/2023 1:41 PM SUEDE BRUSHER 09/28/2023 3:32 PM SUEDE BRUSHER Sammi Kothari APRN, C.N.P., D.N.P. LAB BL OOD ADD-ON [facility] [address] [place] [address], [facility] OWAT [facility] in [place] [address] [place] [address] documented in this encounter Visit Diagnoses Diagnosis Coronary Arterial Bypass Graft Status Post Personal History- Primary Prosthesis Aortic Valve documented in this encounter Additional Health Concerns Assessment Noted Time PHQ-9 Depression Total Score: 1 09/10/20 2:06 PM CDT documented as of this encounter Care Teams Mine Inspector Federal Relationship Specialty Start Date End Date Kylah Crum M.D. [address] [place] [address] [place] [phone] PCP - General Family Medicine 09/28/23 documented as of this encounter
--- OUTSIDE RECORDS SUMMARY | 2023-12-30 07:24 | XMS_ITS | Encounter Summary ---
Author Name Unknown Organization [facility] Address [address] [place] [address] Care Team Providers Care Market Researcher Name Role Phone Kylah Crum M.D. Primary Care Provider [phone] Reason for Visit * Outpatient (Routine) - Closed Specialty Diagnoses / Procedures Referred By Sebas gimenez Referred To Contact Cardiovascular Surgery Diagnoses Coronary Arterial Bypass Graft Status Post Personal History Prosthesis Aortic Valve Coronary Artery Disease Without Angina Pectoris Laila Basurto P.A.-CJarrett [address] [place] [phone] [facility] Referral ID Status Reason Start Date Expiration Date Visits Re quested Visits Authorized [id number] Closed 09/24/2023 09/23/2026 1 1 Encounter Details Date Type Department Care Team (Late st Contact Info) Description 10/03/2023 1:30 PM [facility] Telemedicine Department of Cardiovascular Surgery in [place], [place] [address] [place] [phone] Laila Basurto P.AJarrett-C. [address] [place] [phone] Mariama Monk, WATCH AND CLOCK MAKER AND REPAIRER, C.N.P. [address] [place] [phone] Cardiac Surgery Status Post (Primary Dx); Bypass [...] Jong Harris : 1950 Visit Date: 10/03/23 [id number] VISIT Consult conducted via real-time audio/video technology by Mariama Monk APRN, C.N.P. in [facility] to the patient in Patient's Home [...] care of the patient today. Time includes [id number] patient care and review of records. Mariama Monk APRN, C.N.P. STRAL SURVEYOR documented in this encounter Plan of Treatment Upcoming Encounters Date Type Department Care Team (Late st Contact Info) Description 01/04/2024 10:30 AM CADASTRAL SURVEYOR Comprehensive Visit Division of Hematology in [place], [place] [address] [place] [address] Brandy Real M.D., M.B.A. [address] [place] [address] documented as of this encounter Visit Diagnoses Diagnosis Cardiac Surgery Status Post- Primary Bypass Coronary Artery Graft Status Post Prosthesis Aortic Valve Coronary Arterial Bypass Graft Status Post Personal History Coronary Artery Disease Without Angina Pectoris documented in this encounter Additional Health Concerns Assessment Noted Time PHQ-9 Depression Total Score: 1 09/10/20 2:06 PM CDT documented as of this encounter Care Teams Market Researcher Relationship Specialty Start Date End Date Kylah Crum M.D. [address] [place] [phone] PCP - General Family Medicine 09/28/23 documented as of this encounter
--- OUTSIDE RECORDS SUMMARY | 2023-12-30 07:24 | XMS_ITS | Encounter Summary ---
Author Name Unknown Organization [facility] Address [address] [place] [address] Care Team Providers Care Mill Supervisor Name Role Phone Kylah Crum M.D. Primary Care Provider [phone] Reason for Visit * Reason Onset Date Comments Anticoagulation 10/01/2023 CCM enrollment Encounter Details Date Type Department Care Team (Latest Contact Info) Description 10/01/2023 Clinical Communication Department of Anticoagulation in [place], [place] [address] [place] [address] Ralf Peralta RJarrettNJarrett [address] [place] [address] Anticoagulation (CCM enrollment) Social History Tobacco Use [...] your living situation today? I have a [facility] place to live 08/29/2023 Sex and Gender Information Value Date Recorded Sex Assigned at Male 08/29/2023 11:06 AM CDT Gender Identity Male 08/29/2023 11:06 AM CDT Sexual Orientation Straight 08/29/2023 11 :06 AM CDT documented as of this encounter Miscellaneous Notes * Telephone Encounter - Lola Cat R.N. - 10/01/2023 4:45 PM RECORDS MANAGEMENT SPECIALIST Consent for Chronic Care Management (CCM) requiring [...] questions on Chronic Care Management coverage or [facility] Patient Account Servicesif they have any questions about their bill. RDS MANAGEMENT SPECIALIST documented in this encounter Plan of Treatment Upcoming Encounters Date Type Department Care Team (Late st Contact Info) Description 01/04/2024 10:30 AM RECORDS MANAGEMENT SPECIALIST Comprehensive Visit Division of Hematology in [place], [place] [address] [place] [address] Brandy Real M.D., M.B.A. [address] [place] [address] documented as of this encounter Visit Diagnoses Diagnosis Coronary Arterial Bypass Graft Status Post Personal History- Primary Prosthesis Aortic Valve Cardiac Surgery Status Post Bypass Coronary Artery Graft Status Post Renewals Manager (Current) Anticoagulant Treatment Monitoring For Therapeutic Drug Therapy documented in this encounter Additional Health Concerns Assessment Noted Time PHQ-9 Depression Total Score: 1 09/10/20 2:06 PM CDT documented as of this encounter Care Teams Mill Supervisor Relationship Specialty Start Date End Date Kylah Crum M.D. [address] [place] [phone] PCP - General Family Medicine 09/28/23 documented as of this encounter
--- OUTSIDE RECORDS SUMMARY | 2023-12-30 07:24 | XMS_ITS | Encounter Summary ---
Author Name Unknown Organization [facility] Address [address] [place] [address] Care Team Providers Care Systems Project Manager Name Role Phone Elsewhere, Pcp Primary Care Provider Unavailabl e Encounter Details Date Type Department Care Team ([facility] st Contact Info) Description 09/27/2023 Clinical Communication [facility] [address] [place] [phone] Sarah Miller M.D., M.P.H. [address] [place] [phone] Social History Tobacco Use Types Packs/Day Years [...] st Contact Info) Description 01/04/2024 10:30 AM RADIO PERSONALITY Comprehensive Visit Division of Hematology in [place], [place] [address] [place] [address] Brandy Real M.D., M.B.A. [address] [place] [address] documented as of this encounter Visit Diagnoses Diagnosis Coronary Arterial Bypass Graft Status Post Personal History- Primary Device Cardiac Status Post documented in this encounter Additional Health Concerns Assessment Noted Time PHQ-9 Depression Total Score: 1 09/10/20 2:06 PM CDT documented as of this encounter Care Teams Systems Project Manager Relationship Specialty Start Date End Date Elsewhere, Pcp PCP - General Internal Medicine 08/19/23 09/27/23 documented as of this encounter
--- OUTSIDE RECORDS SUMMARY | 2023-12-30 07:24 | XMS_ITS | Encounter Summary ---
Author Name Unknown Organization [facility] Address [address] [place] [address] Care Team Providers Care Supply Chain Procurement Manager Name Role Phone Kylah Crum M.D. Primary Care Provider Reason for Referral * Outpatient (Routine) - Authorized Specialty Diagnoses / Procedures Referred By Contact Referred To Contact Cardiovascular Diseases / Cardiovascular Disease Diagnoses Cardiac Surgery Status Post Coronary Arterial Bypass Graft Status Post Personal History Prosthesis Aortic Valve Bypass Coronary Artery Graft Status Post Kylah Crum M.D. [address] [place] [address] [facility] Referral ID Status Reason Start Date Expiration Date V isits Requested Visits Authorized [id number] Authorized 10/01/2023 09/30/2024 1 1 TIES TRADER * Outpatient (Routine) - Closed Specialty Diagnoses / Procedures Referred By Contac t Referred To Contact Nephrology and Hypertension Diagnoses Chronic Kidney Disease Stage 4 Glomerular Filtration Rate 15-29 (HCC) Procedures Nephrology - Chronic renal failure eConsult Kylah Crum M.D. [address] [place] [address] [facility] Referral ID Status Reason Start Date Expiration Date Visits Re quested Visits Authorized [id number] Closed 10/01/2023 09/30/2024 1 1 TIES TRADER Reason for Visit * Reason Comments Post Hospital Follow-up Cardiac 09/19 * Appointment Request (Routine) - Closed Specialty Diagnoses / Procedures Referred By Contjackelin t Referred To Contact Family Medicine Referral ID Status Reason Start Date Expiration Date Visits Re quested Visits Authorized [id number] Closed 09/28/2023 09/27/2024 1 1 Encounter Details Date Type Department Care Team (Bianca st Contact Info) Description 10/01/2023 11:00 AM EQUITIES TRADER Office Visit Department of Family Medicine, [facility], in [place], [place] [address] [place] [phone] Kylah Crum M.D. [address] [place] [phone] Chronic Kidney Disease Stage 4 Glomerular Filtration [...] Comments Blood Pressure 108/65 10/01/2023 11:08 AM EQUITIES TRADER aveage Pulse 76 10/01/2023 11:08 AM EQUITIES TRADER Temperature 36.1 ??C (96.9 ??F) 10/01/2023 1 1:08 AM EQUITIES TRADER Respiratory Rate 20 10/01/2023 11:0 8 AM EQUITIES TRADER Oxygen Saturation 98% 10/01/2023 11: 08 AM EQUITIES TRADER Inhaled Oxygen Concentration - - Weight 90.2 kg (198 lb 11.9 oz) 023 11:08 AM EQUITIES TRADER Height 172.4 cm (5' 7.87) 10/01/2023 1 1:08 AM EQUITIES TRADER Body Mass Index 30.33 10/01/2023 11:08 AM EQUITIES TRADER documented in this encounter Progress Notes * Kylah Crum M.D. - 10/01/2023 11:00 AM CST Progress Note This is a post hospital discharge visit Hospital: [facility] Admission Date: 09/19/2023 Discharge Date 09/26/2023 PRINCIPAL [...] or numbness. He lives with his in [place]. No Known Allergies Current Outpatient Medications: acetaminophen [...] Disease Stage 4 Glomerular Filtration Rate 15-29 ([facility] - Nephrology - Chronic renal failure eConsult; [...] follow up with him in 3-4 weeks. TIES TRADER documented in this encounter Plan of Treatment Upcoming Encounters Date Type Department Care Team (Late st Contact Info) Description 01/04/2024 10:30 AM EQUITIES TRADER Comprehensive Visit Division of Hematology in [place], [place] [address] [place] [address] Brandy Real M.D., M.B.A. [address] [place] [address] Scheduled Referrals Name Type Priority Associated Diagnoses Order Schedule Cardiovascular Disease - General cardiology consult (clinic) Outpatient Referral Routine Cardiac Surgery Status Post Coronary Arterial Bypass Graft Status Post Personal History Prosthesis Aortic Valve Bypass Coronary Artery Graft Status Post Expected: 10/01/2023 (Approximate), Expires: 01/01/2025 documented as of this encounter Results * (ABNORMAL) Basic Metabolic Panel (10/01/2023 12:02 PM EQUITIES TRADER) Potassium, P 4.5 3.6 - 5.2 mmol/L 10/01/2023 4:33 PM EQUITIES TRADER OWAT Sodium, P 137 135 - 145 mmol/L 10/01/2023 4:33 PM EQUITIES TRADER OWAT Chloride, P 99 98 - 107 mmol/L 10/01/2023 4:33 PM EQUITIES TRADER OWAT Bicarbonate, P 24 22 - 29 mmol/L 10/01/2023 4:33 PM EQUITIES TRADER OWAT Anion Gap, P 14 7 - 15 10/01/2023 4:33 PM EQUITIES TRADER OWAT BUN (Blood Urea Nitrogen), P 34(H) 8 - 24 mg/dL 10/01/2023 4:33 PM EQUITIES TRADER OWAT Creatinine 2.36(H) 0.74 - 1.35 mg/dL 10/01/2023 4:33 PM EQUITIES TRADER OWAT Estimated GFR (eGFR) 29(L) >=60 mL/min/BSA 10/01/2023 4:33 PM EQUITIES TRADER OWAT Comment: Estimated GFR calculated using the 2020 CKD_EPI creatinine equation. Calcium, Total, P 8.7(L) 8.8 - 10.2 mg/dL 10/01/2023 4:33 PM EQUITIES TRADER OWAT Glucose, P 222(H) 70 - 140 mg/dL 10/01/2023 4:33 PM EQUITIES TRADER OWAT Blood (Blood, Venous) 10/01/2023 12:02 PM EQUITIES TRADER 10/01/2023 3:43 PM EQUITIES TRADER Kylah Crum M.D. LAB BLOOD ADD-ON [facility] [address] [place] [address], [facility] [place] [address] [place] [address] documented in this encounter Visit Diagnoses Diagnosis [...] documented as of this encounter Care Teams Supply Chain Procurement Manager Relationship Specialty Start Date End Date Kylah Crum M.D. [address] [place] [phone] PCP - General Family Medicine 09/28/23 documented as of this encounter
--- OUTSIDE RECORDS SUMMARY | 2023-12-30 07:24 | XMS_ITS | Encounter Summary ---
Author Name Unknown Organization [facility] Address [address] [place] [address] Care Team Providers Care Veterinary Bacteriologist Name Role Phone Kylah Crum M.D. Primary Care Provider [phone] Encounter Details Date Type Department Care Team (Latest Contact Info) Description 10/01/2023 11:51 AM [employer] - 10/01/2023 11:59 PM [facility] Hospital Encounter Department of Laboratory Medicine in [place], [place] [address] [place] [phone] Kylah Crum M.D. [address] [place] [phone] Chronic Kidney Disease Stage 4 Glomerular Filtration [...] your living situation today? I have a [facility] place to live 08/29/2023 Sex [...] Contact Info) Description 01/04/2024 10:30 AM [employer] Comprehensive Visit Division of Hematology in [place], [place] [address] [place] [phone] Brandy Real M.D., M.B.A. [address] [place] [phone] documented as of this encounter Procedures Procedure Name Priority Date/Time Associated Diagnosis Comments BASIC METABOLIC PANEL, S/P Routine 10/01/2023 12:02 PM [employer] Chronic Kidney Disease Stage 4 Glomerular Filtration Rate 15-29 (HCC) documented in this encounter Results * (ABNORMAL) Basic Metabolic Panel (10/01/2023 12:02 PM [employer]) Potassium, P 4.5 3.6 - 5.2 mmol/L 10/01/2023 4:33 PM [employer] Sodium, P 137 135 - 145 mmol/L 10/01/2023 4:33 PM [employer] Chloride, P 99 98 - 107 mmol/L 10/01/2023 4:33 PM [employer] Bicarbonate, P 24 22 - 29 mmol/L 10/01/2023 4:33 PM [employer] Anion Gap, P 14 7 - 15 10/01/2023 4:33 PM [employer] BUN (Blood Urea Nitrogen), P 34(H) 8 - 24 mg/dL 10/01/2023 4:33 PM [employer] Creatinine 2.36(H) 0.74 - 1.35 mg/dL 10/01/2023 4:33 PM [employer] Estimated GFR (eGFR) 29(L) >=60 mL/min/BSA 10/01/2023 4:33 PM [employer] Comment: Estimated GFR calculated using the 2020 CKD_EPI creatinine equation. Calcium, Total, P 8.7(L) 8.8 - 10.2 mg/dL 10/01/2023 4:33 PM [employer] Glucose, P 222(H) 70 - 140 mg/dL 10/01/2023 4:33 PM [employer] Blood (Blood, Venous) 10/01/2023 12:02 PM [employer] 10/01/2023 3:43 PM [employer] Kylah Crum M.D. LAB BLOOD ADD-ON [facility] [address] [place], [place] [address] in [place] [address] [place] [address] documented in this encounter Visit Diagnoses Diagnosis Chronic Kidney Disease Stage 4 Glomerular Filtration Rate 15-29 (HCC) documented in this encounter Additional Health Concerns Assessment Noted Time PHQ-9 Depression Total Score: 1 09/10/20 23 2:06 PM CDT documented as of this encounter Care Teams Veterinary Bacteriologist Relationship Specialty Start Date End Date Kylah Crum M.D. [address] [place] [address] [place] [phone] PCP - General Family Medicine 09/28/23 documented as of this encounter
--- OUTSIDE RECORDS SUMMARY | 2023-12-30 07:26 | XMS_ITS | Encounter Summary ---
Author Name Unknown Organization [facility] Address [address] [place] [address] Care Team Providers Care Recordist Chief Name Role Phone Kylah Crum M.D. Primary Care Provider [phone] Encounter Details Date Type Department Care Team (Late st Contact Info) Description 09/21/2023 Orders Only Preoperative Evaluation Center in [place], [place] [address] [place] [phone] Fanny Villalobos, PIERRE, C.N.P., D.N.P. [address] [place] [phone] Social History Tobacco Use Types Packs/Day Years [...] your living situation today? I have a [employer] place to live 08/29/2023 Sex and Gender Information Value Date Recorded Sex Assigned at Male 08/29/2023 11:06 AM CDT Gender Identity Male 08/29/2023 11:06 AM CDT Sexual Orientation Straight 08/29/2023 11 :06 AM CDT documented as of this encounter Plan of Treatment Upcoming Encounters Date Type Department Care Team (Late st Contact Info) Description 01/04/2024 10:30 AM PEN OR PENCIL ASSEMBLY MACHINE OPERATOR Comprehensive Visit Division of Hematology in [place], [place] [address] [place] [phone] Brandy Real M.D., M.B.A. [address] [place] [phone] documented as of this encounter Visit Diagnoses Not on filedocumented in this encounter Additional Health Concerns Assessment Noted Time PHQ-9 Depression Total Score: 1 09/10/20 2:06 PM CDT documented as of this encounter Care Teams Recordist Chief Relationship Specialty Start Date End Date Kylah Crum M.D. [address] [place] [address] [place] [phone] PCP - General Family Medicine 09/28/23 documented as of this encounter
--- OUTSIDE RECORDS SUMMARY | 2023-12-30 07:26 | XMS_ITS | Encounter Summary ---
Author Name Unknown Organization [facility] Address [address] [place] [address] Care Team Providers Care Compound Worker Name Role Phone Elsewhere, Pcp Primary Care Provider Unavailabl e Reason for Referral * Outpatient (Routine) - Authorized Specialty Diagnoses / Procedures Referred By Sebas gimenez Referred To Contact Diagnoses Prosthesis Aortic Valve Bypass Coronary Artery Graft Status Post Sarah Miller M.D., M.P.H. [address] [place] [address] Referral ID Status Reason Start Date Expiration Date Visits Requested Visits Authorized [id number] Authorized Continuity of Care 09/24/2023 09/23/2024 1 1 OIDERER HAND Reason for Visit * Auth/Cert (Routine) Specialty [...] Expiration Date Visits Re quested Visits Authorized [id number] 1 1 Encounter Details Date Type Department Care Team (Latest Contact Info) Description 09/19/2023 5:38 AM EMBROIDERER HAND - 09/26/2023 4:29 PM EMBROIDERER HAND Hospital Encounter [facility], [facility], [facility], Fifth Floor [address] [place] [phone] Sarah Miller M.D., M.P.H. [address] [place] [address] Acquired Aortic Valve Disorder (Primary Dx); Stenosis [...] Comments Blood Pressure 137/59 09/26/2023 3:05 PM EMBROIDERER HAND Pulse 67 09/26/2023 3:05 PM EMBROIDERER HAND Temperature 36.8 ??C (98.2 ??F) 09/26/2023 3:05 PM CS T Respiratory Rate 18 09/26/2023 3:05 PM EMBROIDERER HAND Oxygen Saturation 93% 09/26/2023 3:05 PM EMBROIDERER HAND Inhaled Oxygen Concentration - - Weight 87.9 kg (193 lb 12.6 oz) 09/26/2023 7:46 AM EMBROIDERER HAND Height 173 cm (5' 8.11) 09/26/2023 12: 04 PM EMBROIDERER HAND Body Mass Index 29.37 09/26/2023 7:46 AM EMBROIDERER HAND documented in this encounter Discharge Summaries * [...] (Acute Kidney Injury) (HCC) Hyperkalemia 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 Therapy [facility] Antiplatelet Device Cardiac Status Post Cardiac Surgery [...] Follow-up recommendations post Cardiac Surgery Follow-up Visit: [facility] via a video visit on 10/03, Primary Care Provider appointment on 10/01 with INR, Primary Patient Transport Officer appointment TBD, referral sent. INR appointment on 09/28 at local lab. Follow-up Testing: Post-operative testing per the discretion of the PCP or Patient Transport Officer. Monitor INR at discretion of SNF provider [...] as needed for optimal blood pressure control. [place] [employer] Guidelines for individuals with coronary [...] atrial fibrillation or per recommendations by the Patient Transport Officer. Antiplatelet Therapy: Aspirin 81 mg daily recommended [...] surgical incision sites for healing. Contact [facility] Cardiovascular Surgery [phone] with any concerns. Anticoagulation: Warfarin (Coumadin initiated) [...] the cardiac rehab program. Patient referred to: [facility] [address] [place] [address] Recommend that the patient check with insurance company to verify coverage of the cost of cardiac rehabilitation program visits. COVID-19: Due to the current COVID-19 pandemic, the patient was instructed to monitor for any new fever, cough, shortness of breath, sore throat, diarrhea, respiratory distress, or chills or muscle aches. Theyare to contact [facility] COVID-19 nurse line ([phone]) with any concerns. Reviewed the best measures [...] your nose and mouth OUTPATIENT FOLLOWUP [facility] Appointments: Scheduled Appointments 10/03/2023 1:30 PM [facility] Cardi[facility] Surgery For appointment details refer to your Patient Appointment Guide. Outside [facility] Appointments: Consults and Follow-ups to Schedule Take a copy of this after visit summary to your appointment(s). [place], [place] October 01, 2023 - Sunday -- 1:15 Arrival - INR blood test at [facility]. October 01, 2023 - Sunday -- 2:10 Arrival - Hospital Follow-Up with, primary care provider Dr. Cresencio Medina, at [facility]. RECOMMENDATIONS: *A referral for a Patient Transport Officer will need to be placed by your PCP, please schedule this visit 1-3 months after discharge. [facility] You may have outpatient appointments at [facility] that changed during your hospitalization. Referto your [facility] Patient Appointment Guide (PAG) for the most current schedule of appointments and detailed instructions of tests/procedures. Call [phone], if you did not receive an PAG or need to CANCEL any [facility] appointment(s). DISCHARGE MEDICATIONS: At the time of dismissal, pain medications (examples include oxycodone, Dilaudid, Tramadol, etc.)will be prescribed to you if needed. Duration will be determined on a pygy-zn-feyx basis and will not exceed 2 weeks. [...] M.P.H. Primary Jenny Stanford M.B., B.Ch., B.A.O. Database Design Analyst Dismissal Vitals: Admission Weight: 85.8 kg Blood [...] 1.3 cm atrial appendage without mural thrombus. Fish Tender sections are submitted for microscopy in cassette A1. Grossed by Teresa Qureshi M.S., PA[facility] B. Received fresh labeled with [...] up to 0.2 cm in greatest size. Fish Tender sections are submitted for microscopy in cassette B1, following decalcification. Grossed by Teresa Qureshi M.S., GEORGE([facility]). Block Summary A Heart, left atrial [...] were provided to the patient and caregiver(s). OIDERER HAND documented in this encounter Discharge Instructions * Discharge Instructions* Anatoliy Iqbal - 09/26/2023 8:49 AM EMBROIDERER HAND You were discharged from the [facility] Cardiovascular Surgery - [facility] Service. Please identify this service name if you call with questions after hospitalization. OIDERER HAND documented in this encounter Medications at Time [...] M.H.A., R.N., GRISEL - 09/26/2023 2:04 PM EMBROIDERER HAND SUBJECTIVE manager pool Eloisa spoke with Mrs. Harris after nursing informed CM that patient no longer wants a detention facility. The patient has talked with his son and daughter and they will providecare for him at home. OBJECTIVE To have a decision made by patient and family about already accepted detention facility versus home with family. ASSESSMENT / PLAN Mr. Harris will now discharge home with family . SNF has been cancelled and medical team is aware. Damon Kraus, Alexis, Hillary, GRISEL 09/26/23 OIDERER HAND * Neelam Villalobos O.T., O.TRomeo - 09/26/2023 1:43 PM CST Occupational Therapy Acute Hospital Inpatient Treatment SUBJECTIVE Patient's Name: Jong Harris Referring/Attending Provider: Sarah Miller M.D. Medical Diagnosis: Stenosis Aortic Valve Acquired [I35.0] Acquired Aortic Valve Disorder [I35.9] Reason for Referral: Occupational Therapy Evaluation and Treatment OT general acute Onset Date: 09/19/23 Payor: [facility] / Plan: AARP MEDICARE ADVANTAGE [...] provided today: as noted Outcome Measures AM-[facility] Inpatient Short Form: Putting on [...] Standardized Score: 51.12 Interpretation: Clinicians answer the AM-PAC Inpatient Short Form based on observed patient [...] Time (min): 15 min Neelam Villalobos O.T., O.T.D. OIDERER HAND * Aspen Greene PJarrettTJanae - 09/26/2023 1:32 PM CST Physical Therapy Inpatient Treatment Note SUBJECTIVE Patient's Name: Jong Harris Referring/Attending: Sarah Miller M.D. Medical Diagnosis: Stenosis Aortic Valve Acquired [I35.0] Acquired Aortic Valve Disorder [I35.9] Reason for Referral: PT Evaluate and Treat General PT acute Onset Date: 09/19/23 Payor: [facility] / Plan: AARP MEDICARE ADVANTAGE [...] needs met and questions answered. Outcome Measures AM-[facility] Inpatient Short Form: AM-[facility] Basic Mobility (V.2) How much [...] Climbing 3-5 steps with a railing?: None AM-[facility] Basic Mobility (V.2) Raw Score: 24 AM-[facility] Basic Mobility (V.2) Standardized Score: 57.68 Interpretation: Clinicians answer the -[facility] Inpatient Short Form based on [...] Next Inpatient Appointment: 09/27/23 PT Plan Comments: [place] with ambulation. Treatment interventions may include: Treatment/Interventions: Therapeutic exercise, Therapeutic functional activity, Neuromuscular re-education, Gait training STOCK TAKER Visit Trackin Billing: Time Spent with Patient Therapeutic Interventions Gait Training (min): 20 min Therapeutic Activity (min): 20 min Time Tracking Total Timed Units (min): 40 min Total Treatment Time (min): 40 min Aspen Greene P.T.A. OIDERER HAND Associated attestation - Lida Woodward P.T., D.P.T. - 09/27/2023 11:06 AM EMBROIDERER HAND The patient has dismissed from the hospital. [...] stable and planned to discharge to a detention facility on 09/26. 24 Hour Events: oJng Harris has had an uneventful 24 hours. 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 Miller. Anticipated dismissal date: 09/27. Anticipated destination: SNF. PT/OT following. Barriers to discharge: MANJEET Facility placement Medication reconciliation completed. OIDERER HAND * Eloisa Oro M.S.N., M.H.A., R.N., [facility] - 09/26/2023 7:44 AM EMBROIDERER HAND The patient is being prepared to discharge on 09/26/2023 at if medically ready for transfer. Contact CASE MANAGEMENT if time needs to be changed. Transportation will be provided by family. . Destination - Admitted Since 09/19/2023 Service Provider Selected Services Address Phone Fax Patient Preferred [facility] [address] [place] [address] [phone] -- Contact: Admissions Transportation oxygen: No oxygen [...] be completed. - Will continue to follow. OIDERER HAND * Ginette Greene P.A.Adrianna., M.S. - 09/25/2023 [...] (GFR) 30 To 44 ([facility]) #3 Hyperlipidemia On Treatment #4 Benign Prostatic Hyperplasia Without Obstruction #5 Atrial Fibrillation Paroxysmal ([facility]) #6 Diabetes Mellitus Type 2 ([facility]) #7 Anemia In Chronic Kidney Disease #8 Hemiplegia Dominant Side Right ([facility]) #9 Hypertension Essential Primary #10 Stroke Cerebrovascular Accident Personal History #11 Coronary Arterial Bypass Graft Status Post Personal History #12 Prosthesis Aortic Valve #13 Coronary Artery Disease Without Angina Pectoris #14 Anemia Posthemorrhagic Acute (Blood Loss Anemia) #15 Failure Renal Acute (Acute Kidney Injury) ([facility]) #16 Hyperkalemia #17 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 #18 Therapy Integrated Campaign Manager Antiplatelet #19 Device Cardiac Status Post #20 [...] of care of this patient with the warehouse consultant surgeon, Dr. Miller. Anticipated dismissal date: 09/26. Anticipated destination: SNF. PT/OT following. Barriers to discharge: MANJEET Facility placement Medication reconciliation completed. OIDERER HAND * Yun Childs M.SMihir., R.N. - 09/25/2023 2:07 PM CST SUBJECTIVE The telehealth case manager met with the patient and his to discuss the accepted and pending referrals. The patient's asked the telehealth case manager to call the [facility] for possibility of taking patient because it is their first preference. [facility] and [facility] message for [...] following plan. Patient's anticipated discharge disposition is: Retirement Facility Referrals sent. [place] sent to [facility]. Transportation upon dismissal will be provided by family-- . ten pin bowling centre manager encouraged the patient to reach out with any questions/concerns. Damon Moreno, R.N. 09/25/23 OIDERER HAND * Lida Woodward P.T., Emilia.P.T. - 09/25/2023 11:42 AM CST Physical Therapy Inpatient Treatment Note SUBJECTIVE Patient's Name: Jong Harris Referring/Attending: Sarah Miller M.D. Medical Diagnosis: Stenosis Aortic Valve Acquired [I35.0] Acquired Aortic Valve Disorder [I35.9] Reason for Referral: PT Evaluate and Treat PT eval and treat cardiac Onset Date: 09/19/23 Payor: [facility] / Plan: AARP MEDICARE ADVANTAGE [...] an injury with the fall?: No OBJECTIVE Petra NOAGA modalities were not used during their therapy [...] needs met and questions answered. Outcome Measures -[facility] Inpatient Short Form: AM-[facility] Basic Mobility (V.2) How much [...] 3-5 steps with a railing?: A Little AM-[facility] Basic Mobility (V.2) Raw Score: 20 -[facility] Basic Mobility (V.2) Standardized Score: 43.99 Interpretation: Clinicians answer the -[facility] Inpatient Short Form based on [...] (min): 20 min Lida Woodward P.T., D.P.T. OIDERER HAND * Pamela Medina Pharm.DJarrett, R.Ph. - 09/25/2023 [...] the hospital. Pamela Medina Pharm.D., R.Ph. Contact [phone] with any questions about this note. OIDERER HAND * Pamela Medina Pharm.D., R.Ph. - 09/25/2023 10:15 AM CST Clinical Pharmacist Progress Note Jong Harris is a 73 y.o. male admitted on 09/19/[address] [id number]. Procedures (current encounter): 09/19: CABG [...] seble lasix 40 mg BID Neuro: continues STOCK TAKER ropinirole. Endo: BG goal < 180, DCS following and has SSI available, has been intermittently hyperglycemic.Advancing diet as tolerated. Recommend starting insulin glargine 5 units daily. MISC: persistent hiccups, trialing PRN baclofen 2.5 mg TID. Would recommend trialing metoclopramide5 mg Q 8 hours (renally adjusted) instead due to less risk of FITTING ROOM CHECKER depression Prophylaxis: heparin subQ/warfarin, PPI (home med), +BR Home scheduled meds on hold: cholecalciferol, cyanocobalamin, ferrous sulfate, metformin Pamela Medina Pharm.D., R.Ph. OIDERER HAND * Laila Basurto P.A.-C. - 09/24/2023 3:32 [...] (GFR) 30 To 44 ([facility]) #6 Hyperlipidemia On Treatment #7 Benign Prostatic Hyperplasia Without Obstruction #8 Atrial Fibrillation Paroxysmal ([facility]) #9 Diabetes Mellitus Type 2 ([facility]) #10 Anemia In Chronic Kidney Disease #11 Hemiplegia Dominant Side Right ([facility]) #12 Hypertension Essential Primary #13 Stroke Cerebrovascular Accident Personal History #14 Anemia Posthemorrhagic Acute (Blood Loss Anemia) #15 Failure Renal Acute (Acute Kidney Injury) ([facility]) #16 Hyperkalemia #17 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 #18 Therapy [facility] Antiplatelet #19 Device Cardiac Status Post #20 [...] of care of this patient with the warehouse consultant surgeon, Dr. Miller. Anticipated dismissal date: [...] May require homegoing oxygen Medication reconciliation completed. OIDERER HAND * Lida Woodward P.T., D.P.T. - 09/24/2023 3:28 PM CST 09/24/23 1528 Reason Therapy Missed Reason Therapy Missed At test/procedure Patient away at ECHO.. PT to follow up as able. OIDERER HAND * Neelam Villalobos O.T., O.TRomeo - 09/24/2023 1:56 PM CST Occupational Therapy Acute Hospital Inpatient Treatment SUBJECTIVE Patient's Name: Jong Nieto Steven Referring/Attending Provider: Sarah Miller M.D. Medical Diagnosis: Stenosis Aortic Valve Acquired [I35.0] Acquired Aortic Valve Disorder [I35.9] Reason for Referral: Occupational Therapy Evaluation and Treatment OT eval and treat cardiac Onset Date: 09/19/23 Payor: [facility] / Plan: [facility] MEDICARE [facility] PPO / Product Type: PPO / History [...] Discussed patient's care with PT Outcome Measures [facility] Inpatient Short Form: Putting on and taking [...] Score: 40.22 Interpretation: Clinicians answer the -[facility] Inpatient Short Form based on [...] Assistance with housekeeping, Assistance withtransportation, Assistance with financial sales professional, Assistance with showering/bathing Recommended Adaptive Equipment - [...] (min): 10 min Neelam Villalobos O.T., O.T.D. OIDERER HAND * Eze Sevilla R.R.T., L.R.T. - 09/24/2023 [...] answered. Electronically signed by: Cory Sevilla R.R.T., EricaRJarrettTJarrett 09/24/23 1:47 PM EMBROIDERER HAND OIDERER HAND * Pamela Medina Pharm.D., R.Ph. - 09/24/2023 [...] the hospital. Pamela Medina Pharm.D., R.Ph. Contact [phone] with any questions about this note. OIDERER HAND * Pamela Medina Pharm.D., R.Ph. - 09/24/2023 10:19 AM CST Clinical Pharmacist Progress Note Jong Harris is a 73 y.o. male admitted on 09/19/2023 who now presents to [id number]-P forpostoperative care. Procedures (current encounter): 09/19: CABG [...] inaccurate UOP d/t undocumented voids Neuro: continues STOCK TAKER ropinirole. Endo: BG have been < 180, DCS following and has SSI available. Prophylaxis: heparin subQ/warfarin, PPI (home med) Home scheduled meds on hold: cholecalciferol, cyanocobalamin, ferrous sulfate, metformin Pamela Medina Pharm.D., R.Ph. OIDERER HAND * Eloisa Oro M.S.N., M.H.Keri., R.N., GRISEL - 09/24/2023 10:19 AM EMBROIDERER HAND SUBJECTIVE ten pin bowling centre manager Eloisa met with Mr and Mrs Harris to discuss the need for detention rehab at discharge. A list of insurance approved facilities was given. The below referrals have been sent. OBJECTIVE To obtain referrals for detention facilities at discharge. ASSESSMENT / PLAN Service Provider Request Status Selected Services Address Phone Fax Patient Preferred [facility] Pending - Request Sent N/A [address] [facility] [address] [phone] -- [facility] - Request Sent N/A [address] [facility] [address] [phone] -- [facility] SNF Pending - Request Sent N/A [address] [facility] [address] [phone] -- [facility] Declined [facility] is CLOSED N/A [address] [facility] [address] -- Current Capacity last updated by Christiana [place] on 08/15/2023 1413 [facility] has issued notice of closure. We cannot accept any new admissions. We will be having a short-term, private pay option in assisted living for clients who need PT/OT/ST (will be billed to their insurance). Referrals for this area need to go to [facility] living. This area will open 10/12/2023 [facility] Declined Facility cannot provide for patient's needs N/A [address] [place] [address] -- -- Norma Kraus., M.H.Keri., R.N., GRISEL 09/24/2023 OIDERER HAND * Laila Basurto P.A.-C. - 09/23/2023 4:38 [...] (HCC) #16 Hyperkalemia #17 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 #18 Therapy [facility] Antiplatelet #19 Thrombocytopenia Secondary #20 Device Cardiac [...] of care of this patient with the warehouse consultant surgeon, Dr. Miller. Anticipated dismissal date: 09/23-09/24. Anticipated destination: Home self-care or SNF. PT/OT following- patient has residual right-sided weakness from his stroke and will not have available assistance at home after his 's surgery next week. SW following for disposition planning. Barriers to discharge: INR Medication optimization MANJEET Dismissal testing May require homegoing oxygen Medication reconciliation completed. OIDERER HAND * Merle Reyes Pharm.D., R.Ph. - 09/23/2023 2:17 PM CST Clinical Pharmacist Progress Note Jong Harris is a 73 y.o. male admitted on 09/19/2023 who now presents to [id number]/614-P forpostoperative care. Procedures (current encounter): 09/19: CABG [...] Renal: tamsulosin and finasteride resumed Neuro: continues STOCK TAKER ropinirole. Endo: BG have been < 180, DCS following and has SSI available. Prophylaxis: heparin subQ/warfarin, PPI (home med) Home scheduled meds on hold: cholecalciferol, cyanocobalamin, ferrous sulfate, metformin Merle Reyes Pharm.D., R.Ph. OIDERER HAND * Marcela Lee APRN C.N.PJarrett, M.S.N. - 09/22/2023 11:04 PM CST Notified [...] PRBC this morning for Hgb of 7.3. OIDERER HAND * Laila Basurto P.A.-C. - 09/22/2023 4:00 [...] removal. An actuation system was not present. OIDERER HAND * Laila Basurto P.A.-C. - 09/22/2023 3:33 [...] previous stroke. They are considering SNF vs [facility] for discharge planning. OBJECTIVE I have reviewed [...] & Screen Expiration 09/25/2023 23:59 Testing Location [place] CBC without Differential Collection Time: 09/22/23 7:04 [...] (GFR) 30 To 44 ([facility]) #3 Hyperlipidemia On Treatment #4 Benign Prostatic Hyperplasia Without Obstruction #5 Atrial Fibrillation Paroxysmal ([facility]) #6 Diabetes Mellitus Type 2 ([facility]) #7 Anemia In Chronic Kidney Disease #8 Hypertension Essential Primary #9 Stroke Cerebrovascular Accident Personal History #10 Coronary Arterial Bypass Graft Status Post Personal History #11 Prosthesis Aortic Valve #12 Coronary Artery Disease Without Angina Pectoris #13 Anemia Posthemorrhagic Acute (Blood Loss Anemia) #14 Failure Renal Acute (Acute Kidney Injury) ([facility]) #15 Hyperkalemia #16 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 #17 Therapy [facility] Antiplatelet Neuro: No acute concerns. Pain is [...] No sign of active bleed. Platelets 129 [id number]. ID/Skin: No acute concerns. Post-operative antibiotic regimen complete. Maintain sternal incision wound vac until POD 5. Afebrile, WBC WNL. Will remove RIJ this evening. Continue LEATHA wraps to lower extremities when out of bed. Code Status: Full Code Disposition: Continue to monitor on the PCU. I directly examined/reviewed the plan of care of this patient with the warehouse consultant surgeon, Dr. Miller. Anticipated dismissal date: 09/23-09/24. Anticipated destination: Pending PT/OT evaluation. PT/OT consulted for discharge planning- patient has residual right- sided weakness from his stroke and will not have available assistance at home after his 's surgery next week. SW following for disposition planning. Barriers to discharge: INR Medication optimization MANJEET Dismissal testing May require homegoing oxygen Medication reconciliation completed. OIDERER HAND * Purvi Wu, DJarrett, R.Ph. - 09/22/2023 [...] from the hospital. Purvi Wu Pharm.D., R.Ph. OIDERER HAND * Dwayne Lew Pharm.D., R.Ph. - 09/21/2023 10:04 AM EMBROIDERER HAND Clinical Pharmacist Progress Note Jong Harris is a 73 y.o. male admitted on 09/19/2023 who now presents to [id number]/566-P forpostoperative care. Procedures (current encounter): 09/19: CABG [...] Allen removed. Neuro: pain well controlled, continues STOCK TAKER ropinirole. Endo: BG have been < 180, DCS following and has SSI available. Prophylaxis: heparin subQ, PPI (home med) Home scheduled meds on hold: cholecalciferol, cyanocobalamin, ferrous sulfate, metformin Matthias Lew Pharm.D., R.Ph. OIDERER HAND * Enmanuel Edward P.A.-C. - 09/21/2023 4:19 [...] (GFR) 30 To 44 ([facility]) #5 Hyperlipidemia On Treatment #6 Benign Prostatic Hyperplasia Without Obstruction #7 Atrial Fibrillation Paroxysmal ([facility]) #8 Diabetes Mellitus Type 2 ([facility]) #9 Anemia In Chronic Kidney Disease #10 Hypertension Essential Primary #11 Stroke Cerebrovascular Accident Personal History #12 Coronary Artery Disease Without Angina Pectoris #13 Anemia Posthemorrhagic Acute (Blood Loss Anemia) #14 Failure Renal Acute (Acute Kidney Injury) ([facility]) #15 Hyperkalemia #16 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 Neuro: Sleep: Melatonin [...] of this patient with the critical care professional. Anticipated dismissal date: TBD. Anticipated destination: Home [...] risk. Continue to follow PROTECT algorithm protocol. OIDERER HAND * Kari Hook MDIV - 09/20/2023 1:58 PM CST [facility] Spiritual Care Progress Note Patient: Jong Harris Age:73 y.o. Location: [id number] Reason(s) for encounter: Spiritual Care contact to [...] to verbally process surfacing emotions. Spiritual Assessment Quaker Identification / Spiritual Practices: [employer] He attempted to find the name of his religion but could not remember. Coping and support: His and son had left before our visit. He attempted to use avoidance, changing the topic, and humor to cope with tough questions and good student financial services counselor. Patient named his avoidant coping skills [...] current medical condition and life stage. Provided yazdanism reading material to sustain patient's truman/practice while in hospital Facilitated yazdanism/spiritual practices (prayer, blessing, sacred texts, yazdanism item) with theaim to reinforce patient's spiritual [...] requested. Chaplains can be contacted by paging [phone] ([place]) or [phone] (Scientologist). OIDERER HAND * Dwayne Lew, Pharm.D., R.Ph. - 09/20/2023 10:02 AM EMBROIDERER HAND Clinical Pharmacist Progress Note Jong Harris is a 73 y.o. male admitted on 09/19/2023 who now presents to [id number]-P forpostoperative care. Procedures (current encounter): 09/19: CABG [...] ferrous sulfate, metformin Matthias Lew Pharm.D., R.Ph. OIDERER HAND * Bryce Wills M.D. - 09/20/2023 7:06 [...] type 2, was on metformin at home (LcC1p=5.2) Heme: extensive bleeding in OR, required plt, cryo and Kcentra, normal coagulation parameters now, will follow up on labs and watch for chest tube output Will proceed with anticoagulation per cardiac surgery team recommendations ID: continue perioperative antibiotics PPx: pantoprazole prophylaxis T/L/D: RIJ/PA catheter, 3 tubes, Tiffany Del Cid ICU Fellow [id number] OIDERER HAND Associated attestation - Reji Kang M.D. - 09/20/2023 5:43 PM EMBROIDERER HAND I saw and evaluated the patient, participating [...] Illness: The patient is located in [facility], room 730. I have seen and [...] Epicardial wires were/were not placed with a sitka rhythm of SR. Ultimately, due to persistent [...] Full Code Critical care time: 45 min OIDERER HAND * Yuriy Wilson, Ryan.R.T., L.R.T. - 09/19/2023 5:18 PM CST 1710: Pt. Arrived from OR intubated w/ 8.0 ett , secured at 22cm @ lip with twill tie. Pt. Placed on ASV 100%, peep 8, fio2 50%. Will adjust settings and wean as appropriate based on patients condtion. OIDERER HAND * Garrett Bahena, PharmJarrettDJarrett, R.Ph. - 09/19/2023 1:18 PM CST Clinical [...] 130/80 CKD 3b Garrett Bahena Pharm.D., R.Ph. OIDERER HAND documented in this encounter H&P Notes * Jenny Stanford M.B., BLyssa, B.A.O. - 09/19/2023 6:36 AM CST INTERVAL HISTORY AND PHYSICAL PRE-PROCEDURE UPDATE H&P reviewed. The patient was examined and there are no significant changes to the H&P. Misty Howe, Lucille, B.A.O. OIDERER HAND Source Note - Elvi Lundberg MPAS PArnaldo. - 09/18/2023 9:45 AM EMBROIDERER HAND Jong Harris : 1950 Visit Date: 09/18/23 REFERRING PHYSICIAN: No ref. provider found Home chain pegger: [facility] primary care provider: Dr. Adam Cotto [place], [place] SUBJECTIVE CHIEF COMPLAINT / REASON FOR [...] 08/19/2023 for additional information. Patient presented to [facility] ED for chest discomfort on 08/19/2023. Patient [...] CORONARY ANGIOGRAPHY; Surgeon: Ezequiel Jack M.D.; Location: [facility] Family History Problem Relation Age of [...] 2 For postoperative care: Consult social work specialist on the inpatient setting, patient's is having [...] 3596) pamphlet; Your guide to Cardiac Surgery [id number]; Surgical Site Infection: Reducing Your Risk (MC 6471); Central Venous Catheter Infection: Reducing Your Risk ([id number]). Patient instructed to report to [facility] for Bactroban prescription. Application [...] of the patient today. Time includes both acn-oxls-mc-face khdncmb-sb-kaok patient care. MADHAV Chong, P.A.-C. OIDERER HAND documented in this encounter Consult Notes * Karin Mclaughlin, JOSAFAT, LD - 09/26/2023 12:05 PM CSTAssociated Order(s): [...] T2DM, RLS Patient was not available at web content writer's attempts to visit today. Per EMR, [...] effective now Question: Diet texture: Answer: Regular 09/23/2337 09/19/232338 Advance diet as tolerated Until discontinued [...] on 09/26/23. Estimated Needs: Total Calorie Needs: 6762-0867 calories/day Method to Estimate Energy Needs: Fergus-St Jeor ( basal to basal + 10% [...] about patient's nutritional care please contact pager [phone] on weekdays 07:30-16:00 or [phone] on weekends/holidays. OIDERER HAND * Ginette Cervantes, [facility] - 09/24/2023 10:41 AM CSTAssociated Order(s): IP [...] the cardiac rehab program. Patient referred to: [facility] [address] [place] [address] Recommend that the patient check with insurance company to verify coverage of the cost of cardiac rehabilitation program visits. OIDERER HAND * Eloisa Oro M.S.N., M.H.A., R.N., [facility] - 09/24/2023 8:48 AM EMBROIDERER HAND Associated Order(s): IP CONSULT TO CARE MANAGEMENT; IP CONSULT TO CARE MANAGEMENT Discharge Planning Assessment SUBJECTIVE Assessment Information Referral Source: Nurse Referral Name: Liliana Galindo R.N. 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 Glomerular Filtration Rate (GFR) 30 To 44 ([facility]) #3 Hyperlipidemia On Treatment #4 Benign Prostatic Hyperplasia Without Obstruction #5 Atrial Fibrillation Paroxysmal ([facility]) #6 Diabetes Mellitus Type 2 ([facility]) #7 Anemia In Chronic Kidney Disease #8 Hemiplegia Dominant Side Right ([facility]) #9 Hypertension Essential Primary #10 Stroke Cerebrovascular Accident Personal History #11 Coronary Arterial Bypass Graft Status Post Personal History #12 Prosthesis Aortic Valve #13 Coronary Artery Disease Without Angina Pectoris #14 Anemia Posthemorrhagic Acute (Blood Loss Anemia) #15 Failure Renal Acute (Acute Kidney Injury) ([facility]) #16 Hyperkalemia #17 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 #18 Therapy [facility] Antiplatelet #19 Thrombocytopenia Secondary #20 Device Cardiac Status Post Social History Marital Status: Lissy Finance/Insurance Primary insurance: AARP MEDICARE ADVANTAGE [facility] Secondary insurance: N/A Does the patient have any financial concerns? no benefits: No Advance Directives Legal Decision Maker: Self Advance Directives Status: Not completed OBJECTIVE Baseline Functional Status Baseline Activities of Daily Living Mobility: Independent Dressing: Independent Feeding: Independent Bathing: Independent Grooming: Independent Toileting: Independent Behavior: Appropriate, Pleasant, Calm, Cooperative, Oriented Communication: Can write, Talks, Understands speaking, Understands Com[place]an, Reads Shopping: Independent Transportation: Independent to drive [...] Fanny or Lissy Phone Number for Ride/Caregiver: [phone] Anticipated Discharge Destination: Retirement Facility ASSESSMENT / PLAN Assessment: The ten pin bowling centre manager met with Jong Harris to discuss his current hospitalization and home going needs. The patient was unaccompanied. The patient was a reliable historian. The role of ten pin bowling centre manager was reviewed. The patient reviewed his prior level of care and support system. The patient receives support from his , daughter, and son. Mr. Harris lives in a 1st floor apartment with his Lissy. The patients will need knee surgery in 4 days and they have requested the patient go to a detention facility for PT/OT rehab if possible, referrals [...] responsibilities have previously been completed by patient. ten pin bowling centre manager discussed the patient's potential needs at dismissal [...] following new service(s) to be set up: detention facility. After reviewing the patient's chart and meeting with the patient, the ten pin bowling centre manager deemed the LACE+/readmission questions were not necessary. The patient reports understanding that he will dismiss from the hospital when medically stable. Pending hospital course and medical readiness, no barriers to dismissal have been identified at this time. Plan: The patient agrees with the following plan. Patient's anticipated discharge disposition is: Retirement Facility Planning needs to be initiated. Transportation upon dismissal will be provided by family--Son or daughter . ten pin bowling centre manager recommended reaching out to family, friends, and neighbors for assistance. ten pin bowling centre manager provided information regarding the dismissal process. ten pin bowling centre manager placed or requested the following hospital-based consult orders and/or referrals: None. ten pin bowling centre manager will continue to assess for homegoing needs with the interdisciplinary team. ten pin bowling centre manager encouraged the patient to reach out with any questions/concerns. Care Management will continue to follow. Signed by: Damon Kraus, Alexis, R.NJarrett, GRISEL 09/24/2023 OIDERER HAND * Neelam Villalobos O.T., O.TRomeo - 09/23/2023 10:14 AM CST Occupational Therapy Acute Hospital Inpatient Evaluation/Treatment SUBJECTIVE Patient's Name: Jong Harris Referring/Attending Provider: Sarah Miller M.D. 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 Prior Mobility/Functional Transfers Level of [place]: Independent Home Living Type of Home: Apartment Home Access: Stairs to enter with rails Entrance Stairs: Rails: Left Entrance Stairs: Number of Steps: 6 Bathroom Shower/Tub: Tub/shower unit Tub/shower unit location: Main floor Bathroom Toilet: Standard Home Living Comments: would have to side shuffle with a walker Home Equipment Home Adaptive Equipment: Painter Foreman Other DME Equipment : (flat bed) Bathroom Equipment: Grab bars in shower, Tub transfer bench Family/Caregiver Present: Yes (son) Patient/Caregiver Goals: None stated Patient Comments: Patient presented on toilet, having just completed mobility in hallway and to bathroom with salvage engineer. Patient with no complaints of pain, [...] Handouts provided today: Recovery From Heart Surgery [id number] Team Communication: Patient's nurse was contacted and patient's status was discussed, Discussed patient's care with PT Co-treatment with: Physical Therapy (Co-treatment session with PT, The patient benefited from having two skilled therapists present to progress mobility safely. OT addressed functional mobility as itrelates to completing activities of daily living.) Outcome Measures [facility] Inpatient Short Form: Putting on and taking [...] Standardized Score: 40.22 Interpretation: Clinicians answer the [facility] Inpatient Short Form based on observed patient [...] Assistance with housekeeping, Assistance withtransportation, Assistance with financial sales professional, Assistance with showering/bathing Recommended Adaptive Equipment - [...] (min): 28 min Neelam Villalobos O.T., O.TRomeo OIDERER HAND * Ximena Green P.T., D.P.T. - 09/23/2023 10:14 AM CST Physical Therapy Inpatient Evaluation/Treatment SUBJECTIVE Patient's Name: Jong Harris Referring/Attending Provider: Sarah Miller M.D. 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 OIDERER HAND * Vipul Garcia P.A.-C. - 09/21/2023 12:34 [...] 0850 09/21/23 0631 09/21/23 0511 09/21/23 0021 09/20/23203209/20/23 1631 09/20/23 1627 GLUCOSEPOC 190 H 145 [...] primary service with questions regarding blood sugars. OIDERER HAND documented in this encounter Nursing Notes * Valorie Osman R.N. - 09/26/2023 2:15 PM CST Patient discharging home to self care. [facility] placement canceled per patients request. Education complete. All medications and future appointments reviewed with patient. All questions answered.Vital signs stable. IVs removed. Patient transported by [facility]. Electronically signed by: Valorie Osman R.N. 09/26/23 3:50 PM EMBROIDERER HAND OIDERER HAND * Ar Mills R.N. - 09/26/2023 5:17 [...] by: Ar Mills R.N. 09/26/23 5:19 AM EMBROIDERER HAND OIDERER HAND * Kelsey Downing R.N. - 09/25/2023 5:46 PM CST Shift Goals: Clinical Goals for the Shift: Dismissal planning Identify possible barriers to meeting goals/advancing plan of care: None End of Shift Summary: Dismissal education progressing well. Plan is to dismiss to SNF on Sunday. Denies questions at this time. OIDERER HAND * Ar Mills R.N. - 09/25/2023 5:37 [...] by: Ar Mills R.N. 09/25/23 5:39 AM EMBROIDERER HAND OIDERER HAND * Amita Mercado R.N. - 09/24/2023 6:42 [...] Goal: Maintain a safe environment Outcome: Progressing OIDERER HAND * Radha Lara R.N. - 09/23/2023 5:20 PM CST Shift Goals: Clinical Goals for the Shift: Education and ambulation Identify possible barriers to meeting goals/advancing plan of care: Tiredness End of Shift Summary: Patient ambulated to the bathroom multiple times throughout the day. He was able to ambulate in the day three times with encouragement. The patient required a rest assisted through the walk. Education was started while the was present. .Electronically signed by: Radha Lara R.N. 09/23/23 5:23 PM EMBROIDERER HAND Problem: KNOWLEDGE DEFICIT Goal: Patient/family/caregiver demonstrates understanding of disease process, treatment plan, medications, and discharge instructions Outcome: Progressing Problem: SKIN/TISSUE INTEGRITY Goal: Skin/Tissue integrity maintained or improved Outcome: Progressing Problem: DISCHARGE PLANNING Goal: Patient discharge needs identified Outcome: Progressing OIDERER HAND * Julienne Harding R.N. - 09/23/2023 4:13 [...] for hemodynamic support. Pain control remains adequate. OIDERER HAND * Julienne Harding R.N. - 09/22/2023 11:50 [...] bed. Neuro status intact at this time. OIDERER HAND * Elieser Fong - 09/22/2023 6:26 PM [...] Recent CPT: Elieser Fong 09/22/23 6:27 PM EMBROIDERER HAND Under the direction of Lazara Lopez, FelipeR.T., L.R.T. OIDERER HAND * Dubbs, Vipin Gonzalez R.R.T., EricaR.T. - 09/21/2023 2:24 AM CST Patient is a 73 y.o. male admitted on 09/19/2023 Alert Information: Plan of Care: Assess respiratory needs Principal Problem Stenosis Aortic Valve Acquired Oxygen Therapy $Delivery Method: Nasal cannula Arterial Line 09/19/23 Left Radial (Active) Placement Date/Time: 09/19/23 (c) 8917 Procedural Pause Completed: Yes Catheter Time Out [...] L PCO2 ART 43 PH ART 7.37 OIDERER HAND * Kev Duke R.R.T., L.R.T. - 09/20/2023 [...] Left Radial (Active) Placement Date/Time: 09/19/23 (c) 4884 Procedural Pause Completed: Yes Catheter Time Out [...] PH ART 7.37 Skin integrity checked: intact. OIDERER HAND * Yuriy Wilson R.R.T., L.R.T. - 09/19/2023 6:05 PM CST Alert Information: Plan of Care: Continue to monitor and assess pts cardiopulmonary status; encourage coughing and deep breathing; encourage walking and use of incentive spirometry; wean O2 as tolerated. Wean vent settings as tolerated, w/ goal of extubation when ready. Principal Problem Stenosis Aortic Valve Acquired ETT Standard ETT (Active) Placement Date/Time: 09/19/23 (c) 0401 Mask Ventilation: Oral/Nasal airway needed Technique: Directlaryngoscopy, intubation ETT Type: Standard ETT Tube Size: 8 mm Cuffed: Yes Blade Size: Ospina 2 Location: Oral Airway secured at (Initial grover... Arterial Line 09/19/23 Left Radial (Active) Placement Date/Time: 09/19/23 (c) 8769 Procedural Pause Completed: Yes Catheter Time Out [...] PH ART 7.37 Skin integrity checked: good OIDERER HAND documented in this encounter OR Notes * [...] overweight. Post-op Diagnosis Same as preop A prosthetics assistant actively participated and was necessary for [...] non pledgetted Prolene suture and a 20 Citizen Of [place] DLP arterial cannula. The right atrium was [...] at a pressure 100 mm Hg a lhpp824 mL/minute was obtained. We re-dosed the cardioplegia [...] in stable conditions. Sarah Miller M.D., M.P.H. OIDERER HAND * Brief Op Note - Jenny Stanford M.B., B.Ch., B.A.O. - 09/19/2023 8:59 AM CST BRIEF OP NOTE Procedure(s): REPLACEMENT AORTIC VALVE, POSSIBLE AORTIC ROOT ENLARGEMENT. (On-X Conform 23mm Valve) CORONARY ARTERY BYPASS GRAFT X1, VEIN. LIGATION LEFT ATRIAL APPENDAGE. ISOLATION PULMONARY VEIN. ECHOCARDIOGRAM TRANSESOPHAGEAL Surgeon(s) and Role: * Sarah Miller M.D., M.P.H. - Primary * Jenny Stanford M.B., B.Ch., B.A.O. - Database Design Analyst Anesthesia Type General Pre-operative Diagnosis Stenosis Aortic [...] Implants Implant Name LRB Site No. Used Mixing Engineer Mfr No. Serial No. Status Type CLP HRZN TI 6 CLP KIKA - [id number] N/A Chest 1 [employer] [id number] Implanted Hardware e.g. pins/screws/rods CLP HRZN TI 24 CLP SM RED - [id number] N/A Chest 1 [employer] [id number] Implanted Hardware e.g. pins/screws/rods CLP HRZN TI 24 CLP SM RED - [id number] N/A Chest 1 [employer] [id number] Implanted Hardware e.g. pins/screws/rods FELT SURG TFLN 1X6 - [id number] N/A Chest 1 [employer] [id number] Implanted Hardware e.g. pins/screws/rods CLP HRZN TI 24 CLP KIKA - [id number] N/A Chest 1 [employer] [id number] Implanted Hardware e.g. pins/screws/rods VLV AORT CNF [facility] 23 - [id number] - [id number] N/A Aortic Valve 1 [employer] (Prev. [employer]) [id number] Implanted Cardiac Valve Prosthesis Patient Condition:ICU: Stable Misty Howe, B.Ch., B.A.O. OIDERER HAND documented in this encounter Miscellaneous Notes * Hospital Course - Ginette Greene P.A.-C., M.S. - 09/20/2023 1:59 AM EMBROIDERER HAND Jong Harris is a 73 y.o. male [...] M.P.H. Primary Jenny Stanford M.B., B.Ch., B.A.O. Database Design Analyst Dismissal Vitals: Admission Weight: 85.8 kg Blood [...] to the increased Doppler velocities (8.3 g/dL). OIDERER HAND documented in this encounter Plan of Treatment Upcoming Encounters Date Type Department Care Team (Late st Contact Info) Description 01/04/2024 10:30 AM EMBROIDERER HAND Comprehensive Visit Division of Hematology in [place], [place] [address] [place] [phone] Brandy Real M.D., M.B.A. [address] [place] [address] Pending Results Name Type Priority Associated Diagnoses Date /Time Prepare Red Blood Cells, 2 Units Blood Bank STAT 09/18/2023 9:04 AM EMBROIDERER HAND Prepare Platelets : 1 Units Blood Bank STAT 09/20/2023 2:30 AM EMBROIDERER HAND Prepare Red Blood Cells, 2 Units Blood Bank STAT 09/18/2023 9:04 AM EMBROIDERER HAND Prepare Fresh Frozen Plasma : 1 Units Blood Bank STAT 09/20/2023 2:30 AM EMBROIDERER HAND Prepare Platelets : 1 Units Blood Bank STAT 09/20/2023 2:30 AM EMBROIDERER HAND Prepare Pooled Cryoprecipitate : 2 Pools Blood Bank STAT 2022 4:30 AM EMBROIDERER HAND Prepare Red Blood Cells, 2 Units Blood Bank STAT 09/18/2023 9:04 AM EMBROIDERER HAND Prepare Platelets : 1 Units Blood Bank STAT 09/20/2023 6:30 AM EMBROIDERER HAND Scheduled Referrals Name Type Priority Associated Diagnoses Orde r Schedule External referral cardiac rehab program ([facility]) Outpatient Referral Routine Prosthesis Aortic Valve Bypass Coronary Artery Graft Status Post Ordered: 09/24/2023 documented as of this encounter Procedures Procedure Name Priority Date/Time Associated Diagnosis Comments GLUCOSE POCT, B Routine 09/26/2023 11:37 AM EMBROIDERER HAND GLUCOSE POCT, B Routine 09/26/2023 7:55 AM EMBROIDERER HAND PROTHROMBIN TIME (PT), P Routine 09/26/2023 6:58 AM EMBROIDERER HAND CBC WITHOUT DIFFERENTIAL, B Routine 09/26/2023 6:58 AM EMBROIDERER HAND BASIC METABOLIC PANEL, S/P Routine 09/26/2023 6:58 AM EMBROIDERER HAND GLUCOSE POCT, B Routine 09/25/2023 8:25 PM EMBROIDERER HAND GLUCOSE POCT, B Routine 09/25/2023 5:36 PM EMBROIDERER HAND GLUCOSE POCT, B Routine 09/25/2023 1:13 PM EMBROIDERER HAND PROTHROMBIN TIME (PT), P Routine 09/25/2023 9:26 AM EMBROIDERER HAND CBC WITHOUT DIFFERENTIAL, B Routine 09/25/2023 9:26 AM EMBROIDERER HAND BASIC METABOLIC PANEL, S/P Routine 09/25/2023 9:26 AM EMBROIDERER HAND GLUCOSE POCT, B Routine 09/25/2023 8:10 AM EMBROIDERER HAND DX CHEST AP OR PA AND LATERAL 2 VIEWS RAD - Routine (most inpatients and all outpatients) 09/25/2023 7:26 AM EMBROIDERER HAND ECG Routine 09/25/2023 4:55 AM EMBROIDERER HAND GLUCOSE POCT, B Routine 09/24/2023 8:33 PM EMBROIDERER HAND GLUCOSE POCT, B Routine 09/24/2023 4:44 PM EMBROIDERER HAND NOCTURNAL OXYGEN STUDY - RT Routine 09/24/2023 3:46 PM EMBROIDERER HAND (TTE) 2D ECHO DOPPLER COLOR Routine 09/24/2023 3:26 PM EMBROIDERER HAND GLUCOSE POCT, B Routine 09/24/2023 12:43 PM EMBROIDERER HAND RT TO ARRANGE FOR HOME DME Routine 09/24/2023 11:14 AM EMBROIDERER HAND GLUCOSE POCT, B Routine 09/24/2023 7:19 AM EMBROIDERER HAND PROTHROMBIN TIME (PT), P Routine 09/24/2023 6:49 AM EMBROIDERER HAND CBC WITHOUT DIFFERENTIAL, B Routine 09/24/2023 6:49 AM EMBROIDERER HAND BASIC METABOLIC PANEL, S/P Routine 09/24/2023 6:49 AM EMBROIDERER HAND GLUCOSE POCT, B Routine 09/23/2023 9:38 PM EMBROIDERER HAND GLUCOSE POCT, B Routine 09/23/2023 5:02 PM EMBROIDERER HAND PROTHROMBIN TIME (PT), P STAT 09/23/2023 3:44 PM EMBROIDERER HAND HEMOGLOBIN, B STAT 09/23/2023 3:44 PM EMBROIDERER HAND BASIC METABOLIC PANEL, S/P STAT 09/23/2023 3:44 PM EMBROIDERER HAND GLUCOSE POCT, B Routine 09/23/2023 12:19 PM EMBROIDERER HAND DX CHEST AP OR PA AND LATERAL 2 VIEWS RAD - Routine (most inpatients and all outpatients) 09/23/2023 8:44 AM EMBROIDERER HAND PROTHROMBIN TIME (PT), P Routine 09/23/2023 7:34 AM EMBROIDERER HAND CBC WITHOUT DIFFERENTIAL, B Routine 09/23/2023 7:34 AM EMBROIDERER HAND BASIC METABOLIC PANEL, S/P Routine 09/23/2023 7:34 AM EMBROIDERER HAND HEPATIC FUNCTION PANEL, S Routine 09/23/2023 7:31 AM EMBROIDERER HAND GLUCOSE POCT, B Routine 09/23/2023 7:24 AM EMBROIDERER HAND CBC WITHOUT DIFFERENTIAL, B STAT 09/22/2023 11:14 PM EMBROIDERER HAND BASIC METABOLIC PANEL, S/P STAT 09/22/2023 11:14 PM EMBROIDERER HAND GLUCOSE POCT, B Routine 09/22/2023 9:29 PM EMBROIDERER HAND RESPIRATORY ASSESS AND TREAT Routine 09/22/2023 2:00 PM EMBROIDERER HAND TRANSFUSE RED BLOOD CELLS Routine 09/22/2023 2:00 PM EMBROIDERER HAND GLUCOSE POCT, B Routine 09/22/2023 11:27 AM EMBROIDERER HAND GLUCOSE POCT, B Routine 09/22/2023 7:34 AM EMBROIDERER HAND PROTHROMBIN TIME (PT), P Routine 09/22/2023 7:04 AM EMBROIDERER HAND CBC WITHOUT DIFFERENTIAL, B Routine 09/22/2023 7:04 AM EMBROIDERER HAND BASIC METABOLIC PANEL, S/P Routine 09/22/2023 7:04 AM EMBROIDERER HAND TYPE AND SCREEN Routine 09/22/2023 7:01 AM EMBROIDERER HAND GLUCOSE POCT, B Routine 09/21/2023 10:52 PM EMBROIDERER HAND GLUCOSE POCT, B Routine 09/21/2023 7:07 PM EMBROIDERER HAND RESPIRATORY ASSESS AND TREAT Routine 09/21/2023 2:00 PM EMBROIDERER HAND GLUCOSE POCT, B Routine 09/21/2023 11:27 AM EMBROIDERER HAND GLUCOSE POCT, B Routine 09/21/2023 8:50 AM EMBROIDERER HAND PROTHROMBIN TIME (PT), P STAT 09/21/2023 7:47 AM EMBROIDERER HAND PATIENT STATUS Timed 09/21/2023 6:35 AM EMBROIDERER HAND ABG W/COOX Timed 09/21/2023 6:35 AM EMBROIDERER HAND GLUCOSE POCT, B Routine 09/21/2023 6:31 AM EMBROIDERER HAND CBC WITHOUT DIFFERENTIAL, B Timed 09/21/2023 5:11 AM EMBROIDERER HAND PHOSPHORUS (INORGANIC), S Timed 09/21/2023 5:11 AM EMBROIDERER HAND MAGNESIUM, S Timed 09/21/2023 5:11 AM EMBROIDERER HAND BASIC METABOLIC PANEL, S/P Timed 09/21/2023 5:11 AM EMBROIDERER HAND BASIC METABOLIC PANEL, S/P Timed 09/21/2023 12:21 AM EMBROIDERER HAND GLUCOSE POCT, B Routine 09/20/2023 8:33 PM EMBROIDERER HAND POTASSIUM, S/P Timed 09/20/2023 8:33 PM EMBROIDERER HAND GLUCOSE POCT, B Routine 09/20/2023 4:31 PM EMBROIDERER HAND BASIC METABOLIC PANEL, S/P STAT 09/20/2023 4:27 PM EMBROIDERER HAND RESPIRATORY ASSESS AND TREAT Routine 09/20/2023 2:00 PM EMBROIDERER HAND GLUCOSE POCT, B Routine 09/20/2023 11:51 AM EMBROIDERER HAND BASIC METABOLIC PANEL, S/P STAT 09/20/2023 11:51 AM EMBROIDERER HAND GLUCOSE POCT, B Routine 09/20/2023 6:30 AM EMBROIDERER HAND PREPARE PLATELETS STAT 09/20/2023 6:3 0 AM EMBROIDERER HAND PREPARE CRYOPRECIPITATE STAT 09/20/2023 4:30 AM EMBROIDERER HAND LACTATE, B Timed 09/20/2023 4:11 AM EMBROIDERER HAND PATIENT STATUS Timed 09/20/2023 4:11 AM EMBROIDERER HAND ABG W/O COOX Timed 09/20/2023 4:11 AM EMBROIDERER HAND ACTIVATED PARTIAL THROMBOPLASTIN TIME (APTT), P Timed 09/20/2023 4:09 AM EMBROIDERER HAND PROTHROMBIN TIME (PT), P Timed 09/20/2023 4:09 AM EMBROIDERER HAND CBC WITHOUT DIFFERENTIAL, B Timed 09/20/2023 4:09 AM EMBROIDERER HAND MAGNESIUM, S Timed 09/20/2023 4:09 AM EMBROIDERER HAND BASIC METABOLIC PANEL, S/P Timed 09/20/2023 4:09 AM EMBROIDERER HAND DX CHEST PORTABLE WITH AM ROUNDS 1 VIEW RAD - Routine (most inpatients and all outpatients) 09/20/2023 3:33 AM EMBROIDERER HAND TIMP2/IGFBP7 MANJEET RISK SCORE, U Routine 09/20/2023 3:24 AM EMBROIDERER HAND PREPARE PLATELETS STAT 09/20/2023 2:3 0 AM EMBROIDERER HAND PREPARE PLATELETS STAT 09/20/2023 2:3 0 AM EMBROIDERER HAND PREPARE FRESH FROZEN PLASMA STAT 09/20/2023 2:30 AM EMBROIDERER HAND GLUCOSE POCT, B Routine 09/20/2023 1:17 AM EMBROIDERER HAND GLUCOSE POCT, B Routine 09/19/2023 11:58 PM EMBROIDERER HAND GLUCOSE POCT, B Routine 09/19/2023 11:20 PM EMBROIDERER HAND LACTATE, B Timed 09/19/2023 10:58 PM EMBROIDERER HAND RESPIRATORY ASSESS AND TREAT Routine 09/19/2023 10:30 PM EMBROIDERER HAND GLUCOSE POCT, B Routine 09/19/2023 10:27 PM EMBROIDERER HAND GLUCOSE POCT, B Routine 09/19/2023 9:24 PM EMBROIDERER HAND ECG Routine 09/19/2023 8:14 PM EMBROIDERER HAND GLUCOSE POCT, B Routine 09/19/2023 7:58 PM EMBROIDERER HAND LACTATE, B Timed 09/19/2023 7:43 PM EMBROIDERER HAND PATIENT STATUS Timed 09/19/2023 7:43 PM EMBROIDERER HAND ABG W/COOX Timed 09/19/2023 7:43 PM EMBROIDERER HAND LACTATE, B/P Timed 09/19/2023 7:43 PM EMBROIDERER HAND GLUCOSE POCT, B Routine 09/19/2023 6:57 PM EMBROIDERER HAND GLUCOSE POCT, B Routine 09/19/2023 6:23 PM EMBROIDERER HAND DX CHEST PORTABLE 1 VIEW 09/19/2023 5:45 PM EMBROIDERER HAND LACTATE, B STAT 09/19/2023 5:19 PM EMBROIDERER HAND PATIENT STATUS STAT 09/19/2023 5:19 PM EMBROIDERER HAND ABG W/COOX STAT 09/19/2023 5:19 PM EMBROIDERER HAND CYSTATIN C WITH EGFR Timed 09/19/2023 5:19 PM EMBROIDERER HAND Acquired Aortic Valve Disorder ACTIVATED PARTIAL THROMBOPLASTIN TIME (APTT), P STAT 09/19/2023 5:19 PM EMBROIDERER HAND PROTHROMBIN TIME (PT), P STAT 09/19/2023 5:19 PM EMBROIDERER HAND FIBRINOGEN, P STAT 09/19/2023 5:19 PM EMBROIDERER HAND CBC WITHOUT DIFFERENTIAL, B STAT 09/19/2023 5:19 PM EMBROIDERER HAND BASIC METABOLIC PANEL, S/P STAT 09/19/2023 5:19 PM EMBROIDERER HAND AIRWAY CARE Routine 09/19/2023 5:16 PM EMBROIDERER HAND MECHANICAL VENTILATOR Routine 09/19/2023 5:16 PM EMBROIDERER HAND RESPIRATORY ASSESS AND TREAT Routine 09/19/2023 5:07 PM EMBROIDERER HAND TRANSFUSE PLATELETS Routine 09/19/2023 4 :58 PM EMBROIDERER HAND LACTATE, B STAT 09/19/2023 4:20 PM EMBROIDERER HAND SODIUM, B STAT 09/19/2023 4:20 PM EMBROIDERER HAND ABG W/COOX STAT 09/19/2023 4:20 PM EMBROIDERER HAND POTASSIUM, B STAT 09/19/2023 4:20 PM EMBROIDERER HAND GLUCOSE, WHOLE BLOOD STAT 09/19/2023 4:20 PM EMBROIDERER HAND ACTIVATED PARTIAL THROMBOPLASTIN TIME (APTT), P STAT 09/19/2023 4:20 PM EMBROIDERER HAND PROTHROMBIN TIME (PT), P STAT 09/19/2023 4:20 PM EMBROIDERER HAND FIBRINOGEN, P STAT 09/19/2023 4:20 PM EMBROIDERER HAND PLATELETS, B STAT 09/19/2023 4:20 PM EMBROIDERER HAND CALCIUM, IONIZED, S/B STAT 09/19/2023 4:20 PM EMBROIDERER HAND TRANSFUSE CRYOPRECIPITATE Routine 09/19/2023 3:53 PM EMBROIDERER HAND TRANSFUSE CRYOPRECIPITATE Routine 09/19/2023 3:51 PM EMBROIDERER HAND TRANSFUSE RED BLOOD CELLS Routine 09/19/2023 3:50 PM EMBROIDERER HAND LACTATE, B STAT 09/19/2023 3:37 PM EMBROIDERER HAND SODIUM, B STAT 09/19/2023 3:37 PM EMBROIDERER HAND ABG W/COOX STAT 09/19/2023 3:37 PM EMBROIDERER HAND THROMBOELASTOGRAPH, KAOLIN + HEPARINASE, B STAT 09/19/2023 3:37 PM EMBROIDERER HAND POTASSIUM, B STAT 09/19/2023 3:37 PM EMBROIDERER HAND GLUCOSE, WHOLE BLOOD STAT 09/19/2023 3:37 PM EMBROIDERER HAND THROMBOELASTOGRAPH, KAOLIN, B STAT 09/19/2023 3:37 PM EMBROIDERER HAND ACTIVATED PARTIAL THROMBOPLASTIN TIME (APTT), P STAT 09/19/2023 3:37 PM EMBROIDERER HAND PROTHROMBIN TIME (PT), P STAT 09/19/2023 3:37 PM EMBROIDERER HAND FIBRINOGEN, P STAT 09/19/2023 3:37 PM EMBROIDERER HAND PLATELETS, B STAT 09/19/2023 3:37 PM EMBROIDERER HAND CALCIUM, IONIZED, S/B STAT 09/19/2023 3:37 PM EMBROIDERER HAND TRANSFUSE RED BLOOD CELLS Routine 09/19/2023 3:23 PM EMBROIDERER HAND SODIUM, B STAT 09/19/2023 2:46 PM EMBROIDERER HAND ABG W/COOX STAT 09/19/2023 2:46 PM EMBROIDERER HAND POTASSIUM, B STAT 09/19/2023 2:46 PM EMBROIDERER HAND GLUCOSE, WHOLE BLOOD STAT 09/19/2023 2:46 PM EMBROIDERER HAND ACTIVATED PARTIAL THROMBOPLASTIN TIME (APTT), P STAT 09/19/2023 2:46 PM EMBROIDERER HAND PROTHROMBIN TIME (PT), P STAT 09/19/2023 2:46 PM EMBROIDERER HAND FIBRINOGEN, P STAT 09/19/2023 2:46 PM EMBROIDERER HAND PLATELETS, B STAT 09/19/2023 2:46 PM EMBROIDERER HAND CALCIUM, IONIZED, S/B STAT 09/19/2023 2:46 PM EMBROIDERER HAND DX CHEST RETAINED SURGICAL ITEM 1 VIEW RAD - Emergent (Fastest; for the most critically ill patients) 09/19/2023 2:30 PM EMBROIDERER HAND TRANSFUSE PLATELETS Routine 09/19/2023 2 :15 PM EMBROIDERER HAND TRANSFUSE RED BLOOD CELLS Routine 09/19/2023 2:00 PM EMBROIDERER HAND SODIUM, B STAT 09/19/2023 1:40 PM EMBROIDERER HAND ABG W/COOX STAT 09/19/2023 1:40 PM EMBROIDERER HAND POTASSIUM, B STAT 09/19/2023 1:40 PM EMBROIDERER HAND GLUCOSE, WHOLE BLOOD STAT 09/19/2023 1:40 PM EMBROIDERER HAND ACTIVATED PARTIAL THROMBOPLASTIN TIME (APTT), P STAT 09/19/2023 1:40 PM EMBROIDERER HAND PROTHROMBIN TIME (PT), P STAT 09/19/2023 1:40 PM EMBROIDERER HAND FIBRINOGEN, P STAT 09/19/2023 1:40 PM EMBROIDERER HAND PLATELETS, B STAT 09/19/2023 1:40 PM EMBROIDERER HAND CALCIUM, IONIZED, S/B STAT 09/19/2023 1:40 PM EMBROIDERER HAND AUTOLOGOUS RED BLOOD CELLS-CELL SALVAGE Routine 09/19/2023 1:28 PM EMBROIDERER HAND TRANSFUSE FRESH FROZEN PLASMA Routine 09/19/2023 1:24 PM EMBROIDERER HAND TRANSFUSE PLATELETS Routine 09/19/2023 1 :09 PM EMBROIDERER HAND LACTATE, B STAT 09/19/2023 12:45 PM EMBROIDERER HAND SODIUM, B STAT 09/19/2023 12:45 PM EMBROIDERER HAND ABG W/COOX STAT 09/19/2023 12:45 PM EMBROIDERER HAND POTASSIUM, B STAT 09/19/2023 12:45 PM EMBROIDERER HAND GLUCOSE, WHOLE BLOOD STAT 09/19/2023 12:45 PM EMBROIDERER HAND CALCIUM, IONIZED, S/B STAT 09/19/2023 12:45 PM EMBROIDERER HAND ACTIVATED PARTIAL THROMBOPLASTIN TIME (APTT), P STAT 09/19/2023 12:44 PM EMBROIDERER HAND PROTHROMBIN TIME (PT), P STAT 09/19/2023 12:44 PM EMBROIDERER HAND FIBRINOGEN, P STAT 09/19/2023 12:44 PM EMBROIDERER HAND PLATELETS, B STAT 09/19/2023 12:44 PM EMBROIDERER HAND ACT, POCT, B Routine 09/19/2023 12:42 PM EMBROIDERER HAND HEMOGLOBIN (HGB), POCT, B Routine 09/19/2023 12:17 PM EMBROIDERER HAND ACT, POCT, B Routine 09/19/2023 12:01 PM EMBROIDERER HAND GLUCOSE POCT, B Routine 09/19/2023 12:00 PM EMBROIDERER HAND SURGICAL PATHOLOGY, [facility] LAB Routine 09/19/2023 11:34 AM EMBROIDERER HAND Stenosis Aortic Valve Acquired AUTOLOGOUS RED BLOOD CELLS-CELL SALVAGE Routine 09/19/2023 11:33 AM EMBROIDERER HAND ACT, POCT, B Routine 09/19/2023 11:28 AM EMBROIDERER HAND ACT, POCT, B Routine 09/19/2023 10:55 AM EMBROIDERER HAND ACT, POCT, B Routine 09/19/2023 10:24 AM EMBROIDERER HAND GLUCOSE POCT, B Routine 09/19/2023 10:23 AM EMBROIDERER HAND TRANSFUSE RED BLOOD CELLS Routine 09/19/2023 10:13 AM EMBROIDERER HAND (EDMUNDO) - INTRAOPERATIVE WITH COLOR AND LIMITED DOPPLER (PROBE NOT PLACED) Routine 09/19/2023 9:56 AM EMBROIDERER HAND SODIUM, B STAT 09/19/2023 9:51 AM EMBROIDERER HAND ABG W/COOX STAT 09/19/2023 9:51 AM EMBROIDERER HAND ACT, POCT, B Routine 09/19/2023 9:51 AM EMBROIDERER HAND POTASSIUM, B STAT 09/19/2023 9:51 AM EMBROIDERER HAND GLUCOSE, WHOLE BLOOD STAT 09/19/2023 9:51 AM EMBROIDERER HAND CALCIUM, IONIZED, S/B STAT 09/19/2023 9:51 AM EMBROIDERER HAND ACT, POCT, B Routine 09/19/2023 9:26 AM EMBROIDERER HAND HEMOGLOBIN (HGB), POCT, B Routine 09/19/2023 9:24 AM EMBROIDERER HAND LACTATE, B STAT 09/19/2023 8:25 AM EMBROIDERER HAND SODIUM, B STAT 09/19/2023 8:25 AM EMBROIDERER HAND ABG W/COOX STAT 09/19/2023 8:25 AM EMBROIDERER HAND POTASSIUM, B STAT 09/19/2023 8:25 AM EMBROIDERER HAND GLUCOSE, WHOLE BLOOD STAT 09/19/2023 8:25 AM EMBROIDERER HAND CALCIUM, IONIZED, S/B STAT 09/19/2023 8:25 AM EMBROIDERER HAND ACT, POCT, B Routine 09/19/2023 8:24 AM EMBROIDERER HAND ECHOCARDIOGRAM TRANSESOPHAGEAL 09/19/2023 7:03 AM EMBROIDERER HAND Stenosis Aortic Valve Acquired ISOLATION PULMONARY VEIN 09/19/2023 7:03 AM EMBROIDERER HAND Stenosis Aortic Valve Acquired LIGATION LEFT ATRIAL APPENDAGE 09/19/2023 7:03 AM EMBROIDERER HAND 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 09/19/2023 7:03 AM EMBROIDERER HAND Stenosis Aortic Valve Acquired REPLACEMENT AORTIC VALVE 09/19/2023 7:03 AM EMBROIDERER HAND Stenosis Aortic Valve Acquired PREPARE RED BLOOD CELLS STAT 09/18/2023 9:04 AM EMBROIDERER HAND PREPARE RED BLOOD CELLS STAT 09/18/2023 9:04 AM EMBROIDERER HAND PREPARE RED BLOOD CELLS STAT 09/18/2023 9:04 AM EMBROIDERER HAND documented in this encounter Results * (ABNORMAL) Glucose, POCT (09/26/2023 11:37 AM EMBROIDERER HAND) Glucose, POCT, B 190(H) 70 - 140 mg/dL 09/26/2023 11:54 AM EMBROIDERER HAND PCLX Site Capillary 09/26/2023 11:54 AM EMBROIDERER HAND PCLX Last Intake 3-4 hours 09/26/2023 11:54 AM EMBROIDERER HAND PCLX Blood 09/26/2023 11:3 7 AM EMBROIDERER HAND 09/26/2023 11:54 AM EMBROIDERER HAND Unknown Provider LAB POCT ORDERABLES- MANUAL Performing Organization Address City/[facility] Co de Phone Number POC [facility] [address] [place] [address], [facility] PCLX [facility] POC [address] [place] [address] * (ABNORMAL) Glucose, POCT (09/26/2023 7:55 AM EMBROIDERER HAND) Glucose, POCT, B 148(H) 70 - 140 mg/dL 09/26/2023 8:07 AM EMBROIDERER HAND PCLX Site Capillary 09/26/2023 8:07 AM EMBROIDERER HAND PCLX Last Intake 3-4 hours 09/26/2023 8:07 AM EMBROIDERER HAND PCLX Blood 09/26/2023 7:55 AM EMBROIDERER HAND 09/26/2023 8:07 AM EMBROIDERER HAND Unknown Provider LAB POCT ORDERABLES- MANUAL Performing Organization Address [facility] [[email or web address]] de Phone Number [facility] SERVICES [address] [place] [address], [facility] PCLX [facility] POC [address] [place] [address] * (ABNORMAL) Basic Metabolic Panel (09/26/2023 6:58 AM EMBROIDERER HAND) Potassium, S 4.4 3.6 - 5.2 mmol/L 09/26/2023 8:19 AM EMBROIDERER HAND DTL Sodium, S 141 135 - 145 mmol/L 09/26/2023 8:19 AM EMBROIDERER HAND DTL Chloride, S 101 98 - 107 mmol/L 09/26/2023 8:19 AM EMBROIDERER HAND DTL Bicarbonate, S 31(H) 22 - 29 mmol/L 09/26/2023 8:19 AM EMBROIDERER HAND DTL Anion Gap 9 7 - 15 09/26/2023 8:19 AM EMBROIDERER HAND DTL BUN (Blood Urea Nitrogen), S 32(H) 8 - 24 mg/dL 09/26/2023 8:19 AM EMBROIDERER HAND DTL Creatinine 2.41(H) 0.74 - 1.35 mg/dL 09/26/2023 8:19 AM EMBROIDERER HAND DTL Estimated GFR (eGFR) 28(L) >=60 mL/min/BSA 09/26/2023 8:19 AM EMBROIDERER HAND DTL Comment: Estimated GFR calculated using the 2020 CKD_EPI creatinine equation. Calcium, Total, S 8.5(L) 8.8 - 10.2 mg/dL 09/26/2023 8:19 AM EMBROIDERER HAND DTL Glucose, S 151(H) 70 - 140 mg/dL 09/26/2023 8:19 AM EMBROIDERER HAND DTL Blood (Blood, Venous) 09/26/2023 6:58 AM EMBROIDERER HAND 09/26/2023 7:58 AM EMBROIDERER HAND Laila Basurto P.A.-C. LAB BLOOD ADD -ON Performing Organization Address City/[facility]/ZIP Co de Phone Number [facility] [address] [place] [address], [facility] DTL [facility] [address] [place] [address] * (ABNORMAL) Prothrombin Time (PT) (09/26/2023 6:58 AM EMBROIDERER HAND) Prothrombin Time, P 22.0(H) 9.4 - 12.5 sec 09/26/2023 8:25 AM EMBROIDERER HAND DTL INR 2.0 0.9 - 1.1 09/26/2023 8:25 AM EMBROIDERER HAND DTL Comment: ----ADDITIONAL INFORMATION---- Standard intensity warfarin therapeutic range: 2.0 to 3.0 ?? High intensity warfarin therapeutic range: 2.5 to 3.5 Blood (Blood, Venous) 09/26/2023 6:58 AM EMBROIDERER HAND 09/26/2023 7:42 AM EMBROIDERER HAND Anette Hair APRN, C.N.P., D.N.P. LAB B LOOD ADD-ON [facility] [address] [place] [address], [facility] DTL [facility] [address] [place] [address] * (ABNORMAL) CBC without Differential (09/26/2023 6:58 AM EMBROIDERER HAND) Hemoglobin 8.3(L) 13.2 - 16.6 g/dL 09/26/2023 8:04 AM EMBROIDERER HAND DTL Hematocrit 25.5(L) 38.3 - 48.6 % 09/26/2023 8:04 AM EMBROIDERER HAND DTL Erythrocytes 2.70(L) 4.35 - 5.65 x10(12)/L 09/26/2023 8:04 AM EMBROIDERER HAND DTL MCV 94.4 78.2 - 97.9 fL 09/26/2023 8:04 AM EMBROIDERER HAND DTL RBC Distrib Width 13.5 11.8 - 14.5 % 09/26/2023 8:04 AM EMBROIDERER HAND DTL Platelet Count 214 135 - 317 x10(9)/L 09/26/2023 8:04 AM EMBROIDERER HAND DTL Leukocytes 6.7 3.4 - 9.6 x10(9)/L 09/26/2023 8:04 AM EMBROIDERER HAND DTL Blood (Blood, Venous) 09/26/2023 6:58 AM EMBROIDERER HAND 09/26/2023 7:43 AM EMBROIDERER HAND Jenny Jay, B.Ch., B.A.O. LAB BLOOD ADD-ON [facility] [address] [place] [address], [facility] [address] [place] [address] * (ABNORMAL) Glucose, POCT (09/25/2023 8:25 PM EMBROIDERER HAND) Pathologist [facility] Glucose, POCT, B 193(H) 70 - 140 mg/dL 09/25/2023 8:31 PM EMBROIDERER HAND PCLX Site Capillary 09/25/2023 8:31 PM EMBROIDERER HAND PCLX Blood 09/25/2023 8:25 PM EMBROIDERER HAND 09/25/2023 8:31 PM EMBROIDERER HAND Unknown Provider LAB POCT ORDERABLES- MANUAL POC [facility] [address] [place] [address], [facility] PCLX [facility] POC [address] [place] [address] * (ABNORMAL) Glucose, POCT (09/25/2023 5:36 PM EMBROIDERER HAND) Glucose, POCT, B 197(H) 70 - 140 mg/dL 09/25/2023 5:38 PM EMBROIDERER HAND PCLX Site Capillary 09/25/2023 5:38 PM EMBROIDERER HAND PCLX Last Intake 3-4 hours 09/25/2023 5:38 PM EMBROIDERER HAND PCLX Blood 09/25/2023 5:36 PM EMBROIDERER HAND 09/25/2023 5:39 PM EMBROIDERER HAND Unknown Provider LAB POCT ORDERABLES- MANUAL Performing Organization Address City/[facility]/ZIP Co de Phone Number [facility] [address] [place] [address], [facility] PCLX [facility] POC [address] [place] [address] * (ABNORMAL) Glucose, POCT (09/25/2023 1:13 PM EMBROIDERER HAND) Pathologist [facility] Glucose, POCT, B 196(H) 70 - 140 mg/dL 09/25/2023 1:15 PM EMBROIDERER HAND PCLX Last Intake 3-4 hours 09/25/2023 1:15 PM EMBROIDERER HAND PCLX Blood 09/25/2023 1:13 PM EMBROIDERER HAND 09/25/2023 1:16 PM EMBROIDERER HAND Unknown Provider LAB POCT ORDERABLES- MANUAL [facility] [address] [place] [address], [facility] PCLX [facility] POC [address] [place] [address] * (ABNORMAL) Basic Metabolic Panel (09/25/2023 9:26 AM EMBROIDERER HAND) Pathologist [facility] Potassium, S 4.3 3.6 - 5.2 mmol/L 09/25/2023 10:36 AM EMBROIDERER HAND DTL Sodium, S 138 135 - 145 mmol/L 09/25/2023 10:36 AM EMBROIDERER HAND DTL Chloride, S 98 98 - 107 mmol/L 09/25/2023 10:36 AM EMBROIDERER HAND DTL Bicarbonate, S 30(H) 22 - 29 mmol/L 09/25/2023 10:36 AM EMBROIDERER HAND DTL Anion Gap 10 7 - 15 09/25/2023 10:36 AM EMBROIDERER HAND DTL BUN (Blood Urea Nitrogen), S 34(H) 8 - 24 mg/dL 09/25/2023 10:36 AM EMBROIDERER HAND DTL Creatinine 2.64(H) 0.74 - 1.35 mg/dL 09/25/2023 10:36 AM EMBROIDERER HAND DTL Estimated GFR (eGFR) 25(L) >=60 mL/min/BSA 09/25/2023 10:36 AM EMBROIDERER HAND DTL Comment: Estimated GFR calculated using the 2020 CKD_EPI creatinine equation. Calcium, Total, S 8.6(L) 8.8 - 10.2 mg/dL 09/25/2023 10:36 AM EMBROIDERER HAND DTL Glucose, S 177(H) 70 - 140 mg/dL 09/25/2023 10:36 AM EMBROIDERER HAND DTL Blood (Blood, Venous) 09/25/2023 9:26 AM EMBROIDERER HAND 09/25/2023 10:18 AM EMBROIDERER HAND Laila Basurto P.A.-C. LAB BLOOD ADD -ON [address] [address], [facility] [address] [address] * (ABNORMAL) Prothrombin Time (PT) (09/25/2023 9:26 AM EMBROIDERER HAND) Prothrombin Time, P 22.4(H) 9.4 - 12.5 sec 09/25/2023 11:10 AM EMBROIDERER HAND DTL INR 2.0 0.9 - 1.1 09/25/2023 11:10 AM EMBROIDERER HAND DTL Comment: ----ADDITIONAL INFORMATION---- Standard intensity warfarin therapeutic range: 2.0 to 3.0 ?? High intensity warfarin therapeutic range: 2.5 to 3.5 Blood (Blood, Venous) 09/25/2023 9:26 AM EMBROIDERER HAND 09/25/2023 10:05 AM EMBROIDERER HAND Marge Radha Hair APRNNJarrettP., Emilia.N.P. LAB B LOOD ADD-ON Performing Organization Address City/[facility]/ZIP Co de Phone Number [facility] [address] [place] [address], [facility] [address] [place] [address] * (ABNORMAL) CBC without Differential (09/25/2023 9:26 AM EMBROIDERER HAND) [facility] Hemoglobin 9.0(L) 13.2 - 16.6 g/dL 09/25/2023 10:55 AM EMBROIDERER HAND DTL Hematocrit 27.2(L) 38.3 - 48.6 % 09/25/2023 10:55 AM EMBROIDERER HAND DTL Erythrocytes 2.93(L) 4.35 - 5.65 x10(12)/L 09/25/2023 10:55 AM EMBROIDERER HAND DTL MCV 92.8 78.2 - 97.9 fL 09/25/2023 10:55 AM EMBROIDERER HAND DTL RBC Distrib Width 13.6 11.8 - 14.5 % 09/25/2023 10:55 AM EMBROIDERER HAND DTL Platelet Count 229 135 - 317 x10(9)/L 09/25/2023 10:55 AM EMBROIDERER HAND DTL Leukocytes 7.5 3.4 - 9.6 x10(9)/L 09/25/2023 10:55 AM EMBROIDERER HAND DTL Blood (Blood, Venous) 09/25/2023 9:26 AM EMBROIDERER HAND 09/25/2023 10:09 AM EMBROIDERER HAND Jenny Jay, B.Ch., B.A.O. LAB BLOOD ADD-ON Performing Organization Address City/[facility]/ZIP Co de Phone Number [facility] [address] [place] [address], [facility] [address] [place] [address] * (ABNORMAL) Glucose, POCT (09/25/2023 8:10 AM EMBROIDERER HAND) [facility] Glucose, POCT, B 161(H) 70 - 140 mg/dL 09/25/2023 8:19 AM EMBROIDERER HAND PCLX Site Capillary 09/25/2023 8:19 AM EMBROIDERER HAND PCLX Last Intake 3-4 hours 09/25/2023 8:19 AM EMBROIDERER HAND PCLX Blood 09/25/2023 8:10 AM EMBROIDERER HAND 09/25/2023 8:19 AM EMBROIDERER HAND Unknown Provider LAB POCT ORDERABLES- MANUAL POC [facility] [address] [place] [address], [facility] PCLX [facility] POC [address] [place] [address] * DX Chest AP or PA and Lateral 2 Views (09/25/2023 7:26 AM EMBROIDERER HAND) Anatomical Region Laterality Modality Chest, Thoracic RST LOS, Tho racic ARZ LOS, Thoracic FLA LOS N/A Digital Radiography 09/25/2023 8:59 AM EMBROIDERER HAND Impressions 09/25/2023 9:01 AM EMBROIDERER HAND Sternotomy with aortic valve replacement. Mild enlargement of cardiac silhouette. Loop recorder. Trace pleural effusions. Azygos fissure. Aortic calcification. Degenerative arthritis thoracic spine. No pneumothorax. No significant change since 09/23/2023. Narrative 09/25/2023 9:01 AM EMBROIDERER HAND EXAM: ??DX CHEST AP OR PA AND [...] * ECG 12 Lead (09/25/2023 4:55 AM EMBROIDERER HAND) Pathologist [facility] Ventricular Rate ECG/Min 69 BPM MUSE PA Interval 140 ms MUSE QRSD Interval 86 ms MUSE QT Interval 420 ms MUSE QTC Interval 450 ms MUSE P [place] 30 degrees MUSE R [place] 29 degrees MUSE T Wave [place] 74 degrees MUSE 09/25/2023 4:55 AM EMBROIDERER HAND 09/25/2023 5:12 AM EMBROIDERER HAND Impressions MUSE - 09/25/2023 5:13 AM EMBROIDERER HAND Normal sinus rhythm Low voltage QRS in [...] * (ABNORMAL) Glucose, POCT (09/24/2023 8:33 PM EMBROIDERER HAND) [facility] Glucose, POCT, B 183(H) 70 - 140 mg/dL 09/24/2023 8:40 PM EMBROIDERER HAND PCLX Site Capillary 09/24/2023 8:40 PM EMBROIDERER HAND PCLX Blood 09/24/2023 8:33 PM EMBROIDERER HAND 09/24/2023 8:40 PM EMBROIDERER HAND Unknown Provider LAB POCT ORDERABLES- MANUAL POC [facility] [address] [place] [address], [facility] PCLX [facility] POC [address] [place] [address] * (ABNORMAL) Glucose, POCT (09/24/2023 4:44 PM EMBROIDERER HAND) [facility] Glucose, POCT, B 221(H) 70 - 140 mg/dL 09/24/2023 4:59 PM EMBROIDERER HAND PCLX Site Capillary 09/24/2023 4:59 PM EMBROIDERER HAND PCLX Last Intake 2-3 hours 09/24/2023 4:59 PM EMBROIDERER HAND PCLX Blood 09/24/2023 4:44 PM EMBROIDERER HAND 09/24/2023 5:00 PM EMBROIDERER HAND Unknown Provider LAB POCT ORDERABLES- MANUAL POC [facility] [address] [place] [address], [facility] PCLX [facility] POC [address] [place] [address] * (TTE) 2D ECHO DOPPLER COLOR (09/24/2023 3:26 PM EMBROIDERER HAND) Ejection Fraction 64 MC CV EIMS Mid-Ascending [...] Region Laterality Modality Echocardiography 09/24/2023 1:57 PM EMBROIDERER HAND Impressions 09/24/2023 5:48 PM EMBROIDERER HAND Echocardiogram performed per dismissal echo protocol. Status [...] the Order-Level Documents. Narrative 09/24/2023 5:48 PM EMBROIDERER HAND For the complete report, see the Order-Level [...] disc not well seen. Mean aortic prosthetic [id number] mmHg; EOA 2.1 cm2. Trivial (washing jets) [...] * (ABNORMAL) Glucose, POCT (09/24/2023 12:43 PM EMBROIDERER HAND) Glucose, POCT, B 216(H) 70 - 140 mg/dL 09/24/2023 12:51 PM EMBROIDERER HAND PCLX Site Capillary 09/24/2023 12:51 PM EMBROIDERER HAND PCLX Last Intake 3-4 hours 09/24/2023 12:51 PM EMBROIDERER HAND PCLX Blood 09/24/2023 12:4 3 PM EMBROIDERER HAND 09/24/2023 12:51 PM EMBROIDERER HAND Unknown Provider LAB POCT ORDERABLES- MANUAL Performing Organization Address City/[facility]/ZIP Co de Phone Number POC [facility] SERVICES [address] [place] [address], [facility] PCLX [facility] POC [address] [place] [address] * Glucose, POCT (09/24/2023 7:19 AM EMBROIDERER HAND) Glucose, POCT, B 138 70 - 140 mg/dL 09/24/2023 7:30 AM EMBROIDERER HAND PCLX Site Capillary 09/24/2023 7:30 AM EMBROIDERER HAND PCLX Last Intake 3-4 hours 09/24/2023 7:30 AM EMBROIDERER HAND PCLX Blood 09/24/2023 7:19 AM EMBROIDERER HAND 09/24/2023 7:30 AM EMBROIDERER HAND Unknown Provider LAB POCT ORDERABLES- MANUAL Performing Organization Address City/[facility]/ZIP Co de Phone Number POC [facility] [address] [place] [address], [place] PCLX [facility] POC [address] [place] [address] * (ABNORMAL) Basic Metabolic Panel (09/24/2023 6:49 AM EMBROIDERER HAND) Potassium, S 4.3 3.6 - 5.2 mmol/L 09/24/2023 8:25 AM EMBROIDERER HAND DTL Sodium, S 138 135 - 145 mmol/L 09/24/2023 8:25 AM EMBROIDERER HAND DTL Chloride, S 99 98 - 107 mmol/L 09/24/2023 8:25 AM EMBROIDERER HAND DTL Bicarbonate, S 29 22 - 29 mmol/L 09/24/2023 8:25 AM EMBROIDERER HAND DTL Anion Gap 10 7 - 15 09/24/2023 8:25 AM EMBROIDERER HAND DTL BUN (Blood Urea Nitrogen), S 36(H) 8 - 24 mg/dL 09/24/2023 8:25 AM EMBROIDERER HAND DTL Creatinine 2.48(H) 0.74 - 1.35 mg/dL 09/24/2023 8:25 AM EMBROIDERER HAND DTL Estimated GFR (eGFR) 27(L) >=60 mL/min/BSA 09/24/2023 8:25 AM EMBROIDERER HAND DTL Comment: Estimated GFR calculated using the 2020 CKD_EPI creatinine equation. Calcium, Total, S 8.3(L) 8.8 - 10.2 mg/dL 09/24/2023 8:25 AM EMBROIDERER HAND DTL Glucose, S 148(H) 70 - 140 mg/dL 09/24/2023 8:25 AM EMBROIDERER HAND DTL Blood (Blood, Venous) 09/24/2023 6:49 AM EMBROIDERER HAND 09/24/2023 8:01 AM EMBROIDERER HAND Laila Basurto P.A.-C. LAB BLOOD ADD -ON [facility] [address] [place] [address], [facility] [address] [place] [address] * (ABNORMAL) Prothrombin Time (PT) (09/24/2023 6:49 AM EMBROIDERER HAND) Prothrombin Time, P 28.9(H) 9.4 - 12.5 sec 09/24/2023 8:17 AM EMBROIDERER HAND DTL INR 2.6 0.9 - 1.1 09/24/2023 8:17 AM EMBROIDERER HAND DTL Comment: ----ADDITIONAL INFORMATION---- Standard intensity warfarin therapeutic range: 2.0 to 3.0 ?? High intensity warfarin therapeutic range: 2.5 to 3.5 Blood (Blood, Venous) 09/24/2023 6:49 AM EMBROIDERER HAND 09/24/2023 7:44 AM EMBROIDERER HAND Marge Verdora JAY C.N.P., D.N.P. LAB B LOOD ADD-ON Performing Organization Address [facility] [[email or web address]] de Phone Number [facility] [address] [place] [address], [facility] D[facility] [address] [place] [address] * (ABNORMAL) CBC without Differential (09/24/2023 6:49 AM EMBROIDERER HAND) Pathologist [facility] Hemoglobin 8.3(L) 13.2 - 16.6 g/dL 09/24/2023 8:01 AM EMBROIDERER HAND DTL Hematocrit 24.2(L) 38.3 - 48.6 % 09/24/2023 8:01 AM EMBROIDERER HAND DTL Erythrocytes 2.62(L) 4.35 - 5.65 x10(12)/L 09/24/2023 8:01 AM EMBROIDERER HAND DTL MCV 92.4 78.2 - 97.9 fL 09/24/2023 8:01 AM EMBROIDERER HAND DTL RBC Distrib Width 13.3 11.8 - 14.5 % 09/24/2023 8:01 AM EMBROIDERER HAND DTL Platelet Count 163 135 - 317 x10(9)/L 09/24/2023 8:01 AM EMBROIDERER HAND DTL Leukocytes 6.4 3.4 - 9.6 x10(9)/L 09/24/2023 8:01 AM EMBROIDERER HAND DTL Blood (Blood, Venous) 09/24/2023 6:49 AM EMBROIDERER HAND 09/24/2023 7:46 AM EMBROIDERER HAND Jenny Jay, BKolby., B.A.O. LAB BLOOD ADD-ON [facility] [address] [place] [address], [facility] DTL [facility] [address] [place] [address] * (ABNORMAL) Glucose, POCT (09/23/2023 9:38 PM EMBROIDERER HAND) Glucose, POCT, B 186(H) 70 - 140 mg/dL 09/23/2023 9:51 PM EMBROIDERER HAND PCLX Site Capillary 09/23/2023 9:51 PM EMBROIDERER HAND PCLX Last Intake 1-2 hours 09/23/2023 9:51 PM EMBROIDERER HAND PCLX Blood 09/23/2023 9:38 PM EMBROIDERER HAND 09/23/2023 9:51 PM EMBROIDERER HAND Unknown Provider LAB POCT ORDERABLES- MANUAL Performing Organization Address City/[facility] Co de Phone Number [facility] SERVICES [address] [place] [address], [facility] PCLX [facility] POC [address] [place] [address] * (ABNORMAL) Glucose, POCT (09/23/2023 5:02 PM EMBROIDERER HAND) Glucose, POCT, B 190(H) 70 - 140 mg/dL 09/23/2023 5:17 PM EMBROIDERER HAND PCLX Site Capillary 09/23/2023 5:17 PM EMBROIDERER HAND PCLX Last Intake 3-4 hours 09/23/2023 5:17 PM EMBROIDERER HAND PCLX Blood 09/23/2023 5:02 PM EMBROIDERER HAND 09/23/2023 5:17 PM EMBROIDERER HAND Unknown Provider LAB POCT ORDERABLES- MANUAL Performing Organization Address City/[facility]/ZIP Co de Phone Number [facility] [address] [place] [address], [facility] PCLX [facility] POC [address] [place] [address] * (ABNORMAL) Basic Metabolic Panel (09/23/2023 3:44 PM EMBROIDERER HAND) Potassium, P 4.4 3.6 - 5.2 mmol/L 09/23/2023 4:06 PM EMBROIDERER HAND STMA Sodium, P 136 135 - 145 mmol/L 09/23/2023 4:06 PM EMBROIDERER HAND STMA Chloride, P 97(L) 98 - 107 mmol/L 09/23/2023 4:06 PM EMBROIDERER HAND STMA Bicarbonate, P 30(H) 22 - 29 mmol/L 09/23/2023 4:06 PM EMBROIDERER HAND STMA Anion Gap, P 9 7 - 15 09/23/2023 4:06 PM EMBROIDERER HAND STMA BUN (Blood Urea Nitrogen), P 42(H) 8 - 24 mg/dL 09/23/2023 4:06 PM EMBROIDERER HAND STMA Creatinine 2.54(H) 0.74 - 1.35 mg/dL 09/23/2023 4:06 PM EMBROIDERER HAND STMA Estimated GFR (eGFR) 26(L) >=60 mL/min/BSA 09/23/2023 4:06 PM EMBROIDERER HAND STMA Comment: Estimated GFR calculated using the 2020 CKD_EPI creatinine equation. Calcium, Total, P 8.9 8.8 - 10.2 mg/dL 09/23/2023 4:06 PM EMBROIDERER HAND STMA Glucose, P 213(H) 70 - 140 mg/dL 09/23/2023 4:06 PM EMBROIDERER HAND STMA Blood (Blood, Venous) 09/23/2023 3:44 PM EMBROIDERER HAND 09/23/2023 3:50 PM EMBROIDERER HAND Laila Basurto P.A.-C. LAB BLOOD ADD -ON [facility] [address] [place] [address], [facility] [address] [place] [address] * (ABNORMAL) Hemoglobin (09/23/2023 3:44 PM EMBROIDERER HAND) Hemoglobin 8.1(L) 13.2 - 16.6 g/dL 09/23/2023 3:52 PM EMBROIDERER HAND STMA Blood (Blood, Venous) 09/23/2023 3:44 PM EMBROIDERER HAND 09/23/2023 3:49 PM EMBROIDERER HAND Laila Basurto P.A.-C. LAB BLOOD ADD -ON Performing Organization Address City/[facility] Co de Phone Number [facility] [address] [place] [address], [facility] [address] [place] [address] * (ABNORMAL) Prothrombin Time (PT) (09/23/2023 3:44 PM EMBROIDERER HAND) Pathologist [facility] Prothrombin Time, P 41.6(H) 9.4 - 12.5 sec 09/23/2023 3:56 PM EMBROIDERER HAND [facility] 3.7 0.9 - 1.1 09/23/2023 3:56 PM EMBROIDERER HAND [facility] Comment: ----ADDITIONAL INFORMATION---- Standard intensity warfarin therapeutic range: 2.0 to 3.0 ?? High intensity warfarin therapeutic range: 2.5 to 3.5 Blood (Blood, Venous) 09/23/2023 3:44 PM EMBROIDERER HAND 09/23/2023 3:49 PM EMBROIDERER HAND Laila Basurto P.A.-C. LAB BLOOD ADD -ON Performing Organization Address [facility] Co de Phone Number [facility] [address] [place] [address], [facility] [address] [place] [address] * (ABNORMAL) Glucose, POCT (09/23/2023 12:19 PM EMBROIDERER HAND) Pathologist [facility] Glucose, POCT, B 169(H) 70 - 140 mg/dL 09/23/2023 12:26 PM EMBROIDERER HAND PCLX Site Capillary 09/23/2023 12:26 PM EMBROIDERER HAND PCLX Last Intake 3-4 hours 09/23/2023 12:26 PM EMBROIDERER HAND PCLX Blood 09/23/2023 12:1 9 PM EMBROIDERER HAND 09/23/2023 12:26 PM EMBROIDERER HAND Unknown Provider LAB POCT ORDERABLES- MANUAL Performing Organization Address City/[facility] Co de Phone Number POC [facility] [address] [place] [address], [facility] PCLX [facility] POC [address] [place] [address] * DX Chest AP or PA and Lateral 2 Views (09/23/2023 8:44 AM EMBROIDERER HAND) Anatomical Region Laterality Modality Chest, Thoracic RST LOS, Tho racic ARZ LOS, Thoracic FLA LOS N/A Digital Radiography 09/23/2023 10:2 2 AM EMBROIDERER HAND Impressions 09/23/2023 10:23 AM EMBROIDERER HAND The right IJ vascular sheath has been removed since 09/20/2023. Improved aeration with decrease accentuation of the cardiovascular structures. Decrease vascular congestion. Likely similar small bilateral pleural effusions, allowing for differences in technique. Loop recorder, sternotomy, AVR, normal variant azygos lobe are again identified. Narrative 09/23/2023 10:23 AM EMBROIDERER HAND EXAM: ??DX CHEST AP OR PA AND [...] (ABNORMAL) Basic Metabolic Panel (09/23/2023 7:34 AM EMBROIDERER HAND) Potassium, S 4.5 3.6 - 5.2 mmol/L 09/23/2023 8:46 AM EMBROIDERER HAND DTL Sodium, S 135 135 - 145 mmol/L 09/23/2023 8:46 AM EMBROIDERER HAND DTL Chloride, S 98 98 - 107 mmol/L 09/23/2023 8:46 AM EMBROIDERER HAND DTL Bicarbonate, S 29 22 - 29 mmol/L 09/23/2023 8:46 AM EMBROIDERER HAND DTL Anion Gap 8 7 - 15 09/23/2023 8:46 AM EMBROIDERER HAND DTL BUN (Blood Urea Nitrogen), S 39(H) 8 - 24 mg/dL 09/23/2023 8:46 AM EMBROIDERER HAND DTL Creatinine 2.54(H) 0.74 - 1.35 mg/dL 09/23/2023 8:46 AM EMBROIDERER HAND DTL Estimated GFR (eGFR) 26(L) >=60 mL/min/BSA 09/23/2023 8:46 AM EMBROIDERER HAND DTL Comment: Estimated GFR calculated using the 2020 CKD_EPI creatinine equation. Calcium, Total, S 8.3(L) 8.8 - 10.2 mg/dL 09/23/2023 8:46 AM EMBROIDERER HAND DTL Glucose, S 159(H) 70 - 140 mg/dL 09/23/2023 8:46 AM EMBROIDERER HAND DTL Blood (Blood, Venous) 09/23/2023 7:34 AM EMBROIDERER HAND 09/23/2023 8:25 AM EMBROIDERER HAND Laila Basurto P.A.-C. LAB BLOOD ADD -ON Performing Organization Address City/[facility]/ZIP Co de Phone Number [facility] [address] [place], [place] [id number] [place] [address] [facility] [address] [place] [address] * (ABNORMAL) Prothrombin Time (PT) (09/23/2023 7:34 AM EMBROIDERER HAND) Prothrombin Time, P 35.5(H) 9.4 - 12.5 sec 09/23/2023 8:23 AM EMBROIDERER HAND DTL INR 3.2 0.9 - 1.1 09/23/2023 8:23 AM EMBROIDERER HAND DTL Comment: ----ADDITIONAL INFORMATION---- Standard intensity warfarin therapeutic range: 2.0 to 3.0 ?? High intensity warfarin therapeutic range: 2.5 to 3.5 Blood (Blood, Venous) 09/23/2023 7:34 AM EMBROIDERER HAND 09/23/2023 8:05 AM EMBROIDERER HAND Anette Hair APRN, C.N.P., D.N.P. LAB B LOOD ADD-ON [facility] [address] [place] [address], [facility] [address] [place] [address] * (ABNORMAL) CBC without Differential (09/23/2023 7:34 AM EMBROIDERER HAND) Pathologist [facility] Hemoglobin 8.2(L) 13.2 - 16.6 g/dL 09/23/2023 8:13 AM EMBROIDERER HAND DTL Hematocrit 24.2(L) 38.3 - 48.6 % 09/23/2023 8:13 AM EMBROIDERER HAND DTL Erythrocytes 2.67(L) 4.35 - 5.65 x10(12)/L 09/23/2023 8:13 AM EMBROIDERER HAND DTL MCV 90.6 78.2 - 97.9 fL 09/23/2023 8:13 AM EMBROIDERER HAND DTL RBC Distrib Width 13.2 11.8 - 14.5 % 09/23/2023 8:13 AM EMBROIDERER HAND DTL Platelet Count 147 135 - 317 x10(9)/L 09/23/2023 8:13 AM EMBROIDERER HAND DTL Leukocytes 8.3 3.4 - 9.6 x10(9)/L 09/23/2023 8:13 AM EMBROIDERER HAND DTL Blood (Blood, Venous) 09/23/2023 7:34 AM EMBROIDERER HAND 09/23/2023 8:04 AM EMBROIDERER HAND Jenny Jay, B.Ch., B.A.O. LAB BLOOD ADD-ON [facility] [address] [place] [address], [facility] [address] [place] [address] * (ABNORMAL) Hepatic Function Panel (09/23/2023 7:31 AM EMBROIDERER HAND) Pathologist [facility] Bilirubin, Total, S 0.5 0.0 - 1.2 mg/dL 09/23/2023 9:47 AM EMBROIDERER HAND DTL Bilirubin, Direct, S <0.2 0.0 - 0.3 mg/dL 09/23/2023 9:47 AM EMBROIDERER HAND DTL Aspartate Aminotransferase (AST), S 21 8 - 48 U/L 09/23/2023 9:47 AM EMBROIDERER HAND DTL Alanine Aminotransferase (ALT), S 9 7 - 55 U/L 09/23/2023 9:47 AM EMBROIDERER HAND DTL Alkaline Phosphatase, S 63 40 - 129 U/L 09/23/2023 9:47 AM EMBROIDERER HAND DTL Albumin, S 3.0(L) 3.5 - 5.0 g/dL 09/23/2023 9:47 AM EMBROIDERER HAND DTL Protein, Total, S 4.9(L) 6.3 - 7.9 g/dL 09/23/2023 9:47 AM EMBROIDERER HAND DTL Blood (Blood, Venous) 09/23/2023 7:31 AM EMBROIDERER HAND 09/23/2023 9:19 AM EMBROIDERER HAND Laila Basurto P.A.-C. LAB BLOOD ADD -ON Performing Organization Address City/[facility]/ZIP Co de Phone Number [facility] [address] [place] [address], [facility] [address] [place] [address] * (ABNORMAL) Glucose, POCT (09/23/2023 7:24 AM EMBROIDERER HAND) [facility] Glucose, POCT, B 147(H) 70 - 140 mg/dL 09/23/2023 7:40 AM EMBROIDERER HAND PCLX Site Capillary 09/23/2023 7:40 AM EMBROIDERER HAND PCLX Last Intake 3-4 hours 09/23/2023 7:40 AM EMBROIDERER HAND PCLX Blood 09/23/2023 7:24 AM EMBROIDERER HAND 09/23/2023 7:40 AM EMBROIDERER HAND Unknown Provider LAB POCT ORDERABLES- MANUAL POC [facility] [address] [place] [address], [facility] PCLX [facility] [address] [place] [address] * (ABNORMAL) Basic Metabolic Panel (09/22/2023 11:14 PM EMBROIDERER HAND) [facility] Potassium, P 4.4 3.6 - 5.2 mmol/L 09/22/2023 11:40 PM EMBROIDERER HAND STMA Sodium, P 134(L) 135 - 145 mmol/L 09/22/2023 11:40 PM EMBROIDERER HAND STMA Chloride, P 94(L) 98 - 107 mmol/L 09/22/2023 11:40 PM EMBROIDERER HAND STMA Bicarbonate, P 28 22 - 29 mmol/L 09/22/2023 11:40 PM EMBROIDERER HAND STMA Anion Gap, P 12 7 - 15 09/22/2023 11:40 PM EMBROIDERER HAND STMA BUN (Blood Urea Nitrogen), P 40(H) 8 - 24 mg/dL 09/22/2023 11:40 PM EMBROIDERER HAND STMA Creatinine 2.38(H) 0.74 - 1.35 mg/dL 09/22/2023 11:40 PM EMBROIDERER HAND STMA Estimated GFR (eGFR) 28(L) >=60 mL/min/BSA 09/22/2023 11:40 PM EMBROIDERER HAND STMA Comment: Estimated GFR calculated using the 2020 CKD_EPI creatinine equation. Calcium, Total, P 8.7(L) 8.8 - 10.2 mg/dL 09/22/2023 11:40 PM EMBROIDERER HAND STMA Glucose, P 146(H) 70 - 140 mg/dL 09/22/2023 11:40 PM EMBROIDERER HAND STMA Blood (Blood, Venous) 09/22/2023 11:14 PM EMBROIDERER HAND 09/22/2023 11:24 PM EMBROIDERER HAND Marcela Lee APRN, C.N.P., M.S.N. LAB BLOO D ADD-ON [facility] [address] [place] [address], [facility] [address] [place] [address] * (ABNORMAL) CBC without Differential (09/22/2023 11:14 PM EMBROIDERER HAND) Hemoglobin 8.6(L) 13.2 - 16.6 g/dL 09/22/2023 11:26 PM EMBROIDERER HAND STMA Hematocrit 25.7(L) 38.3 - 48.6 % 09/22/2023 11:26 PM EMBROIDERER HAND STMA Erythrocytes 2.89(L) 4.35 - 5.65 x10(12)/L 09/22/2023 11:26 PM EMBROIDERER HAND STMA MCV 88.9 78.2 - 97.9 fL 09/22/2023 11:26 PM EMBROIDERER HAND STMA RBC Distrib Width 13.2 11.8 - 14.5 % 09/22/2023 11:26 PM EMBROIDERER HAND STMA Platelet Count 146 135 - 317 x10(9)/L 09/22/2023 11:26 PM EMBROIDERER HAND STMA Leukocytes 9.3 3.4 - 9.6 x10(9)/L 09/22/2023 11:26 PM EMBROIDERER HAND STMA Blood (Blood, Venous) 09/22/2023 11:14 PM EMBROIDERER HAND 09/22/2023 11:24 PM EMBROIDERER HAND Radha Tesfaye APRNNJarrettP., M.S.N. LAB BLOO D ADD-ON Performing Organization Address City/[facility]/ZIP Co de Phone Number [facility] [address] [place] [address], [facility] STMA [facility] [address] [place] [address] * (ABNORMAL) Glucose, POCT (09/22/2023 9:29 PM EMBROIDERER HAND) [facility] Glucose, POCT, B 159(H) 70 - 140 mg/dL 09/22/2023 9:31 PM EMBROIDERER HAND PCLX Blood 09/22/2023 9:29 PM EMBROIDERER HAND 09/22/2023 9:32 PM EMBROIDERER HAND Unknown Provider LAB POCT ORDERABLES- MANUAL POC [facility] [address] [place] [address], [facility] PCLX [facility] POC [address] [place] [address] * Transfuse Red Blood Cells : (09/22/2023 4:21 PM EMBROIDERER HAND) Laila Basurto P.A.-C. BLOOD TRANSFU RAHUL ORDERABLES * Transfuse Red Blood Cells : , 1 Units (09/22/2023 4:21 PM EMBROIDERER HAND) Laila Basurto P.A.-C. BLOOD TRANSFU RAHUL ORDERABLES * (ABNORMAL) Glucose, POCT (09/22/2023 11:27 AM EMBROIDERER HAND) Glucose, POCT, B 192(H) 70 - 140 mg/dL 09/22/2023 11:36 AM EMBROIDERER HAND PCLX Site Capillary 09/22/2023 11:36 AM EMBROIDERER HAND PCLX Last Intake 1-2 hours 09/22/2023 11:36 AM EMBROIDERER HAND PCLX Blood 09/22/2023 11:2 7 AM EMBROIDERER HAND 09/22/2023 11:37 AM EMBROIDERER HAND Unknown Provider LAB POCT ORDERABLES- MANUAL Performing Organization Address City/[facility] Co de Phone Number POC [facility] [address] [place] [address], [facility] PCLX [facility] POC [address] [place] [address] * Glucose, POCT (09/22/2023 7:34 AM EMBROIDERER HAND) Glucose, POCT, B 133 70 - 140 mg/dL 09/22/2023 7:46 AM EMBROIDERER HAND PCLX Site Capillary 09/22/2023 7:46 AM EMBROIDERER HAND PCLX Last Intake 3-4 hours 09/22/2023 7:46 AM EMBROIDERER HAND PCLX Blood 09/22/2023 7:34 AM EMBROIDERER HAND 09/22/2023 7:46 AM EMBROIDERER HAND Unknown Provider LAB POCT ORDERABLES- MANUAL POC [facility] [address] [place] [address], [place] PCLX [facility] POC [address] [place] [address] * (ABNORMAL) Basic Metabolic Panel (09/22/2023 7:04 AM EMBROIDERER HAND) Potassium, S 4.5 3.6 - 5.2 mmol/L 09/22/2023 8:18 AM EMBROIDERER HAND DTL Sodium, S 135 135 - 145 mmol/L 09/22/2023 8:18 AM EMBROIDERER HAND DTL Chloride, S 99 98 - 107 mmol/L 09/22/2023 8:18 AM EMBROIDERER HAND DTL Bicarbonate, S 28 22 - 29 mmol/L 09/22/2023 8:18 AM EMBROIDERER HAND DTL Anion Gap 8 7 - 15 09/22/2023 8:18 AM EMBROIDERER HAND DTL BUN (Blood Urea Nitrogen), S 37(H) 8 - 24 mg/dL 09/22/2023 8:18 AM EMBROIDERER HAND DTL Creatinine 2.38(H) 0.74 - 1.35 mg/dL 09/22/2023 8:18 AM EMBROIDERER HAND DTL Estimated GFR (eGFR) 28(L) >=60 mL/min/BSA 09/22/2023 8:18 AM EMBROIDERER HAND DTL Comment: Estimated GFR calculated using the 2020 CKD_EPI creatinine equation. Calcium, Total, S 8.5(L) 8.8 - 10.2 mg/dL 09/22/2023 8:18 AM EMBROIDERER HAND DTL Glucose, S 141(H) 70 - 140 mg/dL 09/22/2023 8:18 AM EMBROIDERER HAND DTL Blood (Blood, Venous) 09/22/2023 7:04 AM EMBROIDERER HAND 09/22/2023 7:58 AM EMBROIDERER HAND Laila Basurto P.A.-C. LAB BLOOD ADD -ON [address] [address], [facility] [place] [address] * (ABNORMAL) Prothrombin Time (PT) (09/22/2023 7:04 AM EMBROIDERER HAND) Prothrombin Time, P 16.7(H) 9.4 - 12.5 sec 09/22/2023 7:53 AM EMBROIDERER HAND DTL INR 1.5 0.9 - 1.1 09/22/2023 7:53 AM EMBROIDERER HAND DTL Comment: ----ADDITIONAL INFORMATION---- Standard intensity warfarin therapeutic range: 2.0 to 3.0 ?? High intensity warfarin therapeutic range: 2.5 to 3.5 Blood (Blood, Venous) 09/22/2023 7:04 AM EMBROIDERER HAND 09/22/2023 7:37 AM EMBROIDERER HAND Marge VerRadha john APRNNJarrettP., PetraNJarrettP. LAB B LOOD ADD-ON [facility] [address] [place] [address], [facility] DTL [facility] [address] [place] [address] * (ABNORMAL) CBC without Differential (09/22/2023 7:04 AM EMBROIDERER HAND) Pathologist [facility] Hemoglobin 7.3(L) 13.2 - 16.6 g/dL 09/22/2023 7:47 AM EMBROIDERER HAND DTL Hematocrit 21.0(L) 38.3 - 48.6 % 09/22/2023 7:47 AM EMBROIDERER HAND DTL Erythrocytes 2.36(L) 4.35 - 5.65 x10(12)/L 09/22/2023 7:47 AM EMBROIDERER HAND DTL MCV 89.0 78.2 - 97.9 fL 09/22/2023 7:47 AM EMBROIDERER HAND DTL RBC Distrib Width 13.1 11.8 - 14.5 % 09/22/2023 7:47 AM EMBROIDERER HAND DTL Platelet Count 129(L) 135 - 317 x10(9)/L 09/22/2023 8:40 AM EMBROIDERER HAND DTL Comment:Results confirmed by smear, no clumping or interference seen. Leukocytes 9.2 3.4 - 9.6 x10(9)/L 09/22/2023 8:40 AM EMBROIDERER HAND DTL Blood (Blood, Venous) 09/22/2023 7:04 AM EMBROIDERER HAND 09/22/2023 7:37 AM EMBROIDERER HAND Jenny Jay, BKolby., B.A.O. LAB BLOOD ADD-ON [facility] [address] [place] [address], [facility] DTL [facility] [address] [place] [address] * Type and Screen (with Reflex Antibody ID) (09/22/2023 7:01 AM EMBROIDERER HAND) Pathologist [facility] ABORh A Neg Not applicable 09/22/2023 2:10 PM EMBROIDERER HAND STRM Antibody Screen Negative Negative 09/22/2023 2:19 PM EMBROIDERER HAND STRM Type & Screen Expiration 09/25/2023 23:59 09/22/2023 2:10 PM EMBROIDERER HAND STRM Testing Location [place] DEFAULT 09/22/2023 1:41 PM EMBROIDERER HAND STRM Blood (Blood, Venous) 09/22/2023 7:01 AM EMBROIDERER HAND 09/22/2023 1:41 PM EMBROIDERER HAND Laila Basurto P.A.-C. LAB BLOOD BAN K TEST ORDERABLES Performing Organization Address City/[facility]/ZIP Co de Phone Number [facility] [address] [place] [address], [facility] STRM [facility] [address] [place] [address] * (ABNORMAL) Glucose, POCT (09/21/2023 10:52 PM EMBROIDERER HAND) Pathologist [facility] Glucose, POCT, B 161(H) 70 - 140 mg/dL 09/21/2023 10:57 PM EMBROIDERER HAND PCLX Site Capillary 09/21/2023 10:57 PM EMBROIDERER HAND PCLX Last Intake 2-3 hours 09/21/2023 10:57 PM EMBROIDERER HAND PCLX Blood 09/21/2023 10:5 2 PM EMBROIDERER HAND 09/21/2023 10:57 PM EMBROIDERER HAND Unknown Provider LAB POCT ORDERABLES- MANUAL POC [facility] [address] [place] [address], [facility] PCLX [facility] POC [address] [place] [address] * (ABNORMAL) Glucose, POCT (09/21/2023 7:07 PM EMBROIDERER HAND) Pathologist [facility] Glucose, POCT, B 141(H) 70 - 140 mg/dL 09/21/2023 7:20 PM EMBROIDERER HAND PCLX Site Capillary 09/21/2023 7:20 PM EMBROIDERER HAND PCLX Last Intake <1 hour 09/21/2023 7:20 PM EMBROIDERER HAND PCLX Blood 09/21/2023 7:07 PM EMBROIDERER HAND 09/21/2023 7:20 PM EMBROIDERER HAND Unknown Provider LAB POCT ORDERABLES- MANUAL Performing Organization Address City/[facility]/ZIP Co de Phone Number POC [facility] [address] [place] [address], [facility] PCLX [facility] POC [address] [place] [address] * (ABNORMAL) Glucose, POCT (09/21/2023 11:27 AM EMBROIDERER HAND) Glucose, POCT, B 190(H) 70 - 140 mg/dL 09/21/2023 11:29 AM EMBROIDERER HAND PCLX Site ARTLINE 09/21/2023 11:29 AM EMBROIDERER HAND PCLX Blood 09/21/2023 11:2 7 AM EMBROIDERER HAND 09/21/2023 11:29 AM EMBROIDERER HAND Unknown Provider LAB POCT ORDERABLES- MANUAL Performing Organization Address City/[facility]/ZIP Co de Phone Number POC [facility] [address] [place] [address], [place] PCLX [facility] POC [address] [place] [address] * (ABNORMAL) Glucose, POCT (09/21/2023 8:50 AM EMBROIDERER HAND) Glucose, POCT, B 145(H) 70 - 140 mg/dL 09/21/2023 8:52 AM EMBROIDERER HAND PCLX Site ARTLINE 09/21/2023 8:52 AM EMBROIDERER HAND PCLX Blood 09/21/2023 8:50 AM EMBROIDERER HAND 09/21/2023 8:52 AM EMBROIDERER HAND Unknown Provider LAB POCT ORDERABLES- MANUAL POC [facility] [address] [place] [address], [place] PCLX [facility] POC [address] [place] [address] * (ABNORMAL) Prothrombin Time (PT) (09/21/2023 7:47 AM EMBROIDERER HAND) Pathologist [facility] Prothrombin Time, P 13.8(H) 9.4 - 12.5 sec 09/21/2023 7:58 AM EMBROIDERER HAND STMA INR 1.3 0.9 - 1.1 09/21/2023 7:58 AM EMBROIDERER HAND STMA Comment: ----ADDITIONAL INFORMATION---- Standard intensity warfarin therapeutic range: 2.0 to 3.0 ?? High intensity warfarin therapeutic range: 2.5 to 3.5 Blood (Blood, Venous) 09/21/2023 7:47 AM EMBROIDERER HAND 09/21/2023 7:51 AM EMBROIDERER HAND Anette Hair APRN, C.N.P., D.N.P. LAB B LOOD ADD-ON Performing Organization Address City/[facility]/ZIP Co de Phone Number [facility] [address] [place] [address] * Patient Status (09/21/2023 6:35 AM EMBROIDERER HAND) [facility] FIO2 0.21 0.21=AIR 09/21/2023 6:39 AM EMBROIDERER HAND STMA Spont. breaths/min 18 09/21/2023 6:39 AM EMBROIDERER HAND STMA Blood 09/21/2023 6:35 AM EMBROIDERER HAND 09/21/2023 6:39 AM EMBROIDERER HAND Bryce Wills M.D. LAB BLOOD NON ADD-ON [facility] [address] [place] [address] * (ABNORMAL) Blood Gas with Coox, Arterial (09/21/2023 6:35 AM EMBROIDERER HAND) [facility] pO2 67(L) 83 - 108 mm Hg 09/21/2023 6:41 AM EMBROIDERER HAND STMA pCO2 46 35 - 48 mm Hg 09/21/2023 6:41 AM EMBROIDERER HAND STMA pH 7.41 7.35 - 7.45 pH 09/21/2023 6:41 AM EMBROIDERER HAND STMA Base Excess 4(H) -2 - 3 mmol/L 09/21/2023 6:41 AM EMBROIDERER HAND STMA HCO3 29(H) 22 - 26 mmol/L 09/21/2023 6:41 AM EMBROIDERER HAND STMA Hemoglobin, Venous 8.2(L) 13.2 - 16.6 g/dL 09/21/2023 6:41 AM EMBROIDERER HAND STMA O2Hb 92.5(L) 94.0 - 98.0 % 09/21/2023 6:41 AM EMBROIDERER HAND STMA COHb 2.0 <3.0 % 09/21/2023 6:42 AM EMBROIDERER HAND STMA MetHb <1.0 <1.5 % 09/21/2023 6:41 AM EMBROIDERER HAND STMA CtO2 10.8(L) 18.0 - 21.0 vol % 09/21/2023 6:42 AM EMBROIDERER HAND STMA Arterial Sample Site Art Line 09/21/2023 6:41 AM EMBROIDERER HAND STMA Comment:Mina's test not don e. Blood (Blood, Arterial) 09/21/2023 6:35 AM EMBROIDERER HAND 09/21/2023 6:39 AM EMBROIDERER HAND Bryce Wills M.D. [place] [address], [place] [address] * (ABNORMAL) Glucose, POCT (09/21/2023 6:31 AM EMBROIDERER HAND) Glucose, POCT, B 164(H) 70 - 140 mg/dL 09/21/2023 6:32 AM EMBROIDERER HAND PCLX Site ARTLINE 09/21/2023 6:32 AM EMBROIDERER HAND PCLX Blood 09/21/2023 6:31 AM EMBROIDERER HAND 09/21/2023 6:32 AM EMBROIDERER HAND Unknown Provider LAB POCT ORDERABLES- MANUAL POC [facility] [address] [place] [address], [facility] PCLX [facility] POC [address] [place] [address] * (ABNORMAL) Basic Metabolic Panel (09/21/2023 5:11 AM EMBROIDERER HAND) Pathologist [facility] Potassium, P 5.1 3.6 - 5.2 mmol/L 09/21/2023 5:45 AM EMBROIDERER HAND STMA Sodium, P 135 135 - 145 mmol/L 09/21/2023 5:45 AM EMBROIDERER HAND STMA Chloride, P 101 98 - 107 mmol/L 09/21/2023 5:45 AM EMBROIDERER HAND STMA Bicarbonate, P 27 22 - 29 mmol/L 09/21/2023 5:45 AM EMBROIDERER HAND STMA Anion Gap, P 7 7 - 15 09/21/2023 5:45 AM EMBROIDERER HAND STMA BUN (Blood Urea Nitrogen), P 33(H) 8 - 24 mg/dL 09/21/2023 5:45 AM EMBROIDERER HAND STMA Creatinine 2.39(H) 0.74 - 1.35 mg/dL 09/21/2023 5:45 AM EMBROIDERER HAND STMA Estimated GFR (eGFR) 28(L) >=60 mL/min/BSA 09/21/2023 5:45 AM EMBROIDERER HAND STMA Comment: Estimated GFR calculated using the 2020 CKD_EPI creatinine equation. Calcium, Total, P 8.9 8.8 - 10.2 mg/dL 09/21/2023 5:45 AM EMBROIDERER HAND STMA Glucose, P 166(H) 70 - 140 mg/dL 09/21/2023 5:45 AM EMBROIDERER HAND STMA Blood (Blood, Venous) 09/21/2023 5:11 AM EMBROIDERER HAND 09/21/2023 5:25 AM EMBROIDERER HAND Enmanuel Edward P.A.-C. LAB BLOOD ADD-ON [facility] [address] [place] [address], [facility] STMA [facility] [address] [place] [address] * (ABNORMAL) Phosphorus Inorganic (09/21/2023 5:11 AM EMBROIDERER HAND) Pathologist [facility] Phosphorus (Inorganic), S 5.4(H) 2.5 - 4.5 mg/dL 09/21/2023 6:03 AM EMBROIDERER HAND DTL Blood (Blood, Venous) 09/21/2023 5:11 AM EMBROIDERER HAND 09/21/2023 5:50 AM EMBROIDERER HAND Enmanuel Edward P.A.-C. LAB BLOOD ADD-ON Performing Organization Address City/[facility]/ZIP Co de Phone Number [facility] [address] [place] [address] * (ABNORMAL) Magnesium (09/21/2023 5:11 AM EMBROIDERER HAND) [facility] Magnesium, S 2.4(H) 1.7 - 2.3 mg/dL 09/21/2023 6:03 AM EMBROIDERER HAND DTL Blood (Blood, Venous) 09/21/2023 5:11 AM EMBROIDERER HAND 09/21/2023 5:50 AM EMBROIDERER HAND Enmanuel Edward P.A.-C. LAB BLOOD ADD-ON Performing Organization Address City/[facility] Co de Phone Number [facility] [address] [place] [address] * (ABNORMAL) CBC without Differential (09/21/2023 5:11 AM EMBROIDERER HAND) [facility] Hemoglobin 8.1(L) 13.2 - 16.6 g/dL 09/21/2023 6:04 AM EMBROIDERER HAND DTL Hematocrit 23.3(L) 38.3 - 48.6 % 09/21/2023 6:04 AM EMBROIDERER HAND DTL Erythrocytes 2.64(L) 4.35 - 5.65 x10(12)/L 09/21/2023 6:04 AM EMBROIDERER HAND DTL MCV 88.3 78.2 - 97.9 fL 09/21/2023 6:04 AM EMBROIDERER HAND DTL RBC Distrib Width 13.8 11.8 - 14.5 % 09/21/2023 6:04 AM EMBROIDERER HAND DTL Platelet Count 139 135 - 317 x10(9)/L 09/21/2023 6:04 AM EMBROIDERER HAND DTL Leukocytes 12.5(H) 3.4 - 9.6 x10(9)/L 09/21/2023 6:04 AM EMBROIDERER HAND DTL Blood (Blood, Venous) 09/21/2023 5:11 AM EMBROIDERER HAND 09/21/2023 5:40 AM EMBROIDERER HAND Jenny Jay, B.Ch., B.A.O. LAB BLOOD ADD-ON [facility] [address] [place] [address], [facility] [address] [place] [address] * (ABNORMAL) Basic Metabolic Panel (09/21/2023 12:21 AM EMBROIDERER HAND) Pathologist [facility] Potassium, P 5.3(H) 3.6 - 5.2 mmol/L 09/21/2023 1:08 AM EMBROIDERER HAND DTL Sodium, P 135 135 - 145 mmol/L 09/21/2023 1:08 AM EMBROIDERER HAND DTL Chloride, P 102 98 - 107 mmol/L 09/21/2023 1:08 AM EMBROIDERER HAND DTL Bicarbonate, P 25 22 - 29 mmol/L 09/21/2023 1:08 AM EMBROIDERER HAND DTL Anion Gap, P 8 7 - 15 09/21/2023 1:08 AM EMBROIDERER HAND DTL BUN (Blood Urea Nitrogen), P 30(H) 8 - 24 mg/dL 09/21/2023 1:08 AM EMBROIDERER HAND DTL Creatinine 2.42(H) 0.74 - 1.35 mg/dL 09/21/2023 1:08 AM EMBROIDERER HAND DTL Estimated GFR (eGFR) 28(L) >=60 mL/min/BSA 09/21/2023 1:08 AM EMBROIDERER HAND DTL Comment: Estimated GFR calculated using the 2020 CKD_EPI creatinine equation. Calcium, Total, P 8.9 8.8 - 10.2 mg/dL 09/21/2023 1:08 AM EMBROIDERER HAND DTL Glucose, P 170(H) 70 - 140 mg/dL 09/21/2023 1:08 AM EMBROIDERER HAND DTL Blood (Blood, Venous) 09/21/2023 12:21 AM EMBROIDERER HAND 09/21/2023 12:54 AM EMBROIDERER HAND Enmanuel Edward P.A.-C. LAB BLOOD ADD-ON [facility] [address] [place] [address], [facility] DTL [facility] [address] [place] [address] * (ABNORMAL) Glucose, POCT (09/20/2023 8:33 PM EMBROIDERER HAND) Glucose, POCT, B 196(H) 70 - 140 mg/dL 09/20/2023 8:39 PM EMBROIDERER HAND PCLX Blood 09/20/2023 8:33 PM EMBROIDERER HAND 09/20/2023 8:39 PM EMBROIDERER HAND Unknown Provider LAB POCT ORDERABLES- MANUAL Performing Organization Address City/[facility]/ZIP Co de Phone Number POC [facility] [address] [place] [address], [facility] PCLX [facility] POC [address] [place] [address] * Potassium (09/20/2023 8:33 PM EMBROIDERER HAND) Potassium, P 5.0 3.6 - 5.2 mmol/L 09/20/2023 8:56 PM EMBROIDERER HAND STMA Blood (Blood, Venous) 09/20/2023 8:33 PM EMBROIDERER HAND 09/20/2023 8:38 PM EMBROIDERER HAND Yenifer Mercado P.A.-C. LAB BLOOD ADD -ON [facility] [address] [place] [address], [facility] STMA [facility] [address] [place] [address] * (ABNORMAL) Glucose, POCT (09/20/2023 4:31 PM EMBROIDERER HAND) [facility] Glucose, POCT, B 182(H) 70 - 140 mg/dL 09/20/2023 4:32 PM EMBROIDERER HAND PCLX Site ARTLINE 09/20/2023 4:32 PM EMBROIDERER HAND PCLX Blood 09/20/2023 4:31 PM EMBROIDERER HAND 09/20/2023 4:32 PM EMBROIDERER HAND Unknown Provider LAB POCT ORDERABLES- MANUAL POC [facility] [address] [place] [address], [place] PCLX [facility] POC [address] [place] [address] * (ABNORMAL) Basic Metabolic Panel (09/20/2023 4:27 PM EMBROIDERER HAND) [facility] Potassium, P 5.5(H) 3.6 - 5.2 mmol/L 09/20/2023 5:03 PM EMBROIDERER HAND STMA Sodium, P 136 135 - 145 mmol/L 09/20/2023 5:03 PM EMBROIDERER HAND STMA Chloride, P 102 98 - 107 mmol/L 09/20/2023 5:03 PM EMBROIDERER HAND STMA Bicarbonate, P 26 22 - 29 mmol/L 09/20/2023 5:03 PM EMBROIDERER HAND STMA Anion Gap, P 8 7 - 15 09/20/2023 5:03 PM EMBROIDERER HAND STMA BUN (Blood Urea Nitrogen), P 28(H) 8 - 24 mg/dL 09/20/2023 5:03 PM EMBROIDERER HAND STMA Creatinine 2.24(H) 0.74 - 1.35 mg/dL 09/20/2023 5:03 PM EMBROIDERER HAND STMA Estimated GFR (eGFR) 31(L) >=60 mL/min/BSA 09/20/2023 5:03 PM EMBROIDERER HAND STMA Comment: Estimated GFR calculated using the 2020 CKD_EPI creatinine equation. Calcium, Total, P 9.0 8.8 - 10.2 mg/dL 09/20/2023 5:03 PM EMBROIDERER HAND STMA Glucose, P 193(H) 70 - 140 mg/dL 09/20/2023 5:03 PM EMBROIDERER HAND STMA Blood (Blood, Venous) 09/20/2023 4:27 PM EMBROIDERER HAND 09/20/2023 4:36 PM EMBROIDERER HAND Yenifer Mercado P.A.-C. LAB BLOOD ADD -ON [facility] [address] [place] [address], [facility] STMA [facility] [address] [place] [address] * (ABNORMAL) Glucose, POCT (09/20/2023 11:51 AM EMBROIDERER HAND) Pathologist [facility] Glucose, POCT, B 205(H) 70 - 140 mg/dL 09/20/2023 11:53 AM EMBROIDERER HAND PCLX Site ARTLINE 09/20/2023 11:53 AM EMBROIDERER HAND PCLX Last Intake 1-2 hours 09/20/2023 11:53 AM EMBROIDERER HAND PCLX Blood 09/20/2023 11:5 1 AM EMBROIDERER HAND 09/20/2023 11:53 AM EMBROIDERER HAND Unknown Provider LAB POCT ORDERABLES- MANUAL POC [facility] [address] [place] [address], [facility] PCLX [facility] POC [address] [place] [address] * (ABNORMAL) Basic Metabolic Panel (09/20/2023 11:51 AM EMBROIDERER HAND) Potassium, P 5.4(H) 3.6 - 5.2 mmol/L 09/20/2023 12:20 PM EMBROIDERER HAND STMA Sodium, P 137 135 - 145 mmol/L 09/20/2023 12:20 PM EMBROIDERER HAND STMA Chloride, P 103 98 - 107 mmol/L 09/20/2023 12:20 PM EMBROIDERER HAND STMA Bicarbonate, P 23 22 - 29 mmol/L 09/20/2023 12:20 PM EMBROIDERER HAND STMA Anion Gap, P 11 7 - 15 09/20/2023 12:20 PM EMBROIDERER HAND STMA BUN (Blood Urea Nitrogen), P 27(H) 8 - 24 mg/dL 09/20/2023 12:20 PM EMBROIDERER HAND STMA Creatinine 2.12(H) 0.74 - 1.35 mg/dL 09/20/2023 12:20 PM EMBROIDERER HAND STMA Estimated GFR (eGFR) 33(L) >=60 mL/min/BSA 09/20/2023 12:20 PM EMBROIDERER HAND STMA Comment: Estimated GFR calculated using the 2020 CKD_EPI creatinine equation. Calcium, Total, P 9.2 8.8 - 10.2 mg/dL 09/20/2023 12:20 PM EMBROIDERER HAND STMA Glucose, P 230(H) 70 - 140 mg/dL 09/20/2023 12:20 PM EMBROIDERER HAND STMA Blood (Blood, Venous) 09/20/2023 11:51 AM EMBROIDERER HAND 09/20/2023 12:00 PM EMBROIDERER HAND Lobito Melgar APRN C.N.P., M.S.N. L AB BLOOD ADD-ON Performing Organization Address City/[facility]/ZIP Co de Phone Number [facility] [address] [place] [address], [facility] STMA [facility] [address] [place] [address] * (ABNORMAL) Glucose, POCT (09/20/2023 6:30 AM EMBROIDERER HAND) Glucose, POCT, B 169(H) 70 - 140 mg/dL 09/20/2023 6:32 AM EMBROIDERER HAND PCLX Blood 09/20/2023 6:30 AM EMBROIDERER HAND 09/20/2023 6:33 AM EMBROIDERER HAND Unknown Provider LAB POCT ORDERABLES- MANUAL Performing Organization Address City/[facility] Co de Phone Number POC [facility] [address] [place] [address], [facility] PCLX [facility] POC [address] [place] [address] * Lactate, Whole Blood (09/20/2023 4:11 AM EMBROIDERER HAND) Lactate, B 1.5 0.5 - 2.2 mmol/L 09/20/2023 4:18 AM EMBROIDERER HAND STMA Blood (Blood, Arterial) 09/20/2023 4:11 AM EMBROIDERER HAND 09/20/2023 4:15 AM EMBROIDERER HAND Radha Encarnacion APRNN.P., M.S.N. L AB BLOOD NON ADD-ON Performing Organization Address City/[facility] Co de Phone Number [facility] [address] [place] [address] * Patient Status (09/20/2023 4:11 AM EMBROIDERER HAND) O2 Flow 2.0 L/min 09/20/2023 4:15 AM EMBROIDERER HAND STMA Device NC 09/20/2023 4:15 AM EMBROIDERER HAND STMA Spont. breaths/min 14 09/20/2023 4:15 AM EMBROIDERER HAND STMA Blood 09/20/2023 4:11 AM EMBROIDERER HAND 09/20/2023 4:15 AM EMBROIDERER HAND Jenny Jay, B.Ch., B.A.O. LAB BLOOD NON ADD-ON Performing Organization Address City/[facility] Co de Phone Number [facility] [address] [place] [address] * (ABNORMAL) Blood Gas without Coox, Arterial (09/20/2023 4:11 AM EMBROIDERER HAND) pO2 79(L) 83 - 108 mm Hg 09/20/2023 4:18 AM EMBROIDERER HAND STMA pCO2 43 35 - 48 mm Hg 09/20/2023 4:18 AM EMBROIDERER HAND STMA pH 7.37 7.35 - 7.45 pH 09/20/2023 4:18 AM EMBROIDERER HAND STMA Base Excess 0 -2 - 3 mmol/L 09/20/2023 4:18 AM EMBROIDERER HAND STMA HCO3 25 22 - 26 mmol/L 09/20/2023 4:18 AM EMBROIDERER HAND STMA Arterial Sample Site Art Line 09/20/2023 4:18 AM EMBROIDERER HAND STMA Comment:Mina's test not don e. Blood (Blood, Arterial) 09/20/2023 4:11 AM EMBROIDERER HAND 09/20/2023 4:15 AM EMBROIDERER HAND Raven BlackCh., B.A.O. LAB BLOOD NON ADD-ON [facility] [address] [place] [address], [facility] STMA [facility] [address] [place] [address] * (ABNORMAL) CBC without Differential (09/20/2023 4:09 AM EMBROIDERER HAND) Pathologist [facility] Hemoglobin 9.1(L) 13.2 - 16.6 g/dL 09/20/2023 4:51 AM EMBROIDERER HAND DTL Hematocrit 25.8(L) 38.3 - 48.6 % 09/20/2023 4:51 AM EMBROIDERER HAND DTL Erythrocytes 2.99(L) 4.35 - 5.65 x10(12)/L 09/20/2023 4:51 AM EMBROIDERER HAND DTL MCV 86.3 78.2 - 97.9 fL 09/20/2023 4:51 AM EMBROIDERER HAND DTL RBC Distrib Width 13.6 11.8 - 14.5 % 09/20/2023 4:51 AM EMBROIDERER HAND DTL Platelet Count 179 135 - 317 x10(9)/L 09/20/2023 4:51 AM EMBROIDERER HAND DTL Leukocytes 11.3(H) 3.4 - 9.6 x10(9)/L 09/20/2023 4:51 AM EMBROIDERER HAND DTL Blood (Blood, Venous) 09/20/2023 4:09 AM EMBROIDERER HAND 09/20/2023 4:42 AM EMBROIDERER HAND Jenny Jay B.Ch., B.A.O. LAB BLOOD ADD-ON [facility] [address] [place] [address], [facility] DTL [facility] [address] [place] [address] * (ABNORMAL) Basic Metabolic Panel (09/20/2023 4:09 AM EMBROIDERER HAND) Potassium, S 5.2 3.6 - 5.2 mmol/L 09/20/2023 5:12 AM EMBROIDERER HAND DTL Sodium, S 142 135 - 145 mmol/L 09/20/2023 5:12 AM EMBROIDERER HAND DTL Chloride, S 107 98 - 107 mmol/L 09/20/2023 5:12 AM EMBROIDERER HAND DTL Bicarbonate, S 23 22 - 29 mmol/L 09/20/2023 5:12 AM EMBROIDERER HAND DTL Anion Gap 12 7 - 15 09/20/2023 5:12 AM EMBROIDERER HAND DTL BUN (Blood Urea Nitrogen), S 23 8 - 24 mg/dL 09/20/2023 5:12 AM EMBROIDERER HAND DTL Creatinine 1.88(H) 0.74 - 1.35 mg/dL 09/20/2023 5:12 AM EMBROIDERER HAND DTL Estimated GFR (eGFR) 38(L) >=60 mL/min/BSA 09/20/2023 5:12 AM EMBROIDERER HAND DTL Comment: Estimated GFR calculated using the 2020 CKD_EPI creatinine equation. Calcium, Total, S 9.6 8.8 - 10.2 mg/dL 09/20/2023 5:12 AM EMBROIDERER HAND DTL Glucose, S 162(H) 70 - 140 mg/dL 09/20/2023 5:12 AM EMBROIDERER HAND DTL Blood (Blood, Venous) 09/20/2023 4:09 AM EMBROIDERER HAND 09/20/2023 4:57 AM EMBROIDERER HAND Jenny Jay, B.Ch., B.A.O. LAB BLOOD ADD-ON [facility] [address] [place] [address], [facility] [address] [place] [address] * APTT (Activated Partial Thromboplastin Time) (09/20/2023 4:09 AM EMBROIDERER HAND) Activated Partial Thrombopl Time, P 26 25 - 37 sec 09/20/2023 5:19 AM EMBROIDERER HAND DTL Blood (Blood, Venous) 09/20/2023 4:09 AM EMBROIDERER HAND 09/20/2023 4:43 AM EMBROIDERER HAND Raven BlackCh., B.A.O. LAB BLOOD ADD-ON Performing Organization Address City/[facility] Co de Phone Number [facility] [address] [place] [address] * Prothrombin Time (PT) (09/20/2023 4:09 AM EMBROIDERER HAND) Prothrombin Time, P 12.2 9.4 - 12.5 sec 09/20/2023 5:19 AM EMBROIDERER HAND DTL INR 1.1 0.9 - 1.1 09/20/2023 5:19 AM EMBROIDERER HAND DTL Comment: ----ADDITIONAL INFORMATION---- Standard intensity warfarin therapeutic range: 2.0 to 3.0 ?? High intensity warfarin therapeutic range: 2.5 to 3.5 Blood (Blood, Venous) 09/20/2023 4:09 AM EMBROIDERER HAND 09/20/2023 4:43 AM EMBROIDERER HAND Raven BlackCh., B.A.O. LAB BLOOD ADD-ON Performing Organization Address City/[facility] Co de Phone Number [facility] [address] [place] [address] * (ABNORMAL) Magnesium (09/20/2023 4:09 AM EMBROIDERER HAND) Magnesium, S 2.7(H) 1.7 - 2.3 mg/dL 09/20/2023 5:12 AM EMBROIDERER HAND DTL Blood (Blood, Venous) 09/20/2023 4:09 AM EMBROIDERER HAND 09/20/2023 4:57 AM EMBROIDERER HAND Nicky Black.Ch., B.A.O. LAB BLOOD ADD-ON [facility] [address] [place] [address], [place] DTL [facility] [address] [place] [address] * DX Chest Portable with AM Rounds 1 View (09/20/2023 3:33 AM EMBROIDERER HAND) Anatomical Region Laterality Modality Chest, Thoracic RST LOS, Tho racic ARZ LOS, Thoracic FLA LOS N/A Digital Radiography 09/20/2023 5:18 AM EMBROIDERER HAND Impressions 09/20/2023 5:20 AM EMBROIDERER HAND Compared to 09/19/2023. Extubation. Removal of right IJ SGC, sheath remains. Slightly decreased lung volumes. No other significant change. Pulmonary vascular congestion. Bibasilar atelectasis. No definite pneumothorax. Trace pneumomediastinum. Enlarged cardiac silhouette. Retrocardiac atelectasis/consolidation. Azygous fissure. Sternotomy. Mediastinal clips and drains. Loop recorder. Narrative 09/20/2023 5:20 AM EMBROIDERER HAND EXAM: ??DX CHEST PORTABLE WITH AM ROUNDS [...] Risk Score, Random, Urine (09/20/2023 3:24 AM EMBROIDERER HAND) Pathologist [facility] TIMP2/IGFBP7 MANJEET Risk Score, U 0.45(H) <0.30 (ng/mL)(2) /1000 09/20/2023 4:12 AM EMBROIDERER HAND [facility] Comment: ----ADDITIONAL INFORMATION---- <0.30= <0.30 is considered low risk for acute kidney injury. 0.30-2.00= 0.30-2.00 indicates increased risk for acute kidney injury. >2.00= >2.00 indicates high risk for acute kidney injury. Urine (Urine, Midstream) 09/20/2023 3:24 AM EMBROIDERER HAND 09/20/2023 3:24 AM EMBROIDERER HAND Jenny Jay, B.Ch., B.A.O. LAB URINE ORDERABLES Performing Organization Address City/[facility]/ZIP Co de Phone Number [facility] [address] [place] [address], [facility] 200 [place] [address] * Glucose, POCT (09/20/2023 1:17 AM EMBROIDERER HAND) [facility] Glucose, POCT, B 136 70 - 140 mg/dL 09/20/2023 1:19 AM EMBROIDERER HAND PCLX Site ARTLINE 09/20/2023 1:19 AM EMBROIDERER HAND PCLX Blood 09/20/2023 1:17 AM EMBROIDERER HAND 09/20/2023 1:19 AM EMBROIDERER HAND Unknown Provider LAB POCT ORDERABLES- MANUAL POC [facility] [address] [place] [address], [facility] PCLX [facility] [address] [place] [address] * Glucose, POCT (09/19/2023 11:58 PM EMBROIDERER HAND) [facility] Glucose, POCT, B 133 70 - 140 mg/dL 09/19/2023 11:59 PM EMBROIDERER HAND PCLX Site ARTLINE 09/19/2023 11:59 PM EMBROIDERER HAND PCLX Blood 09/19/2023 11:5 8 PM EMBROIDERER HAND 09/19/2023 11:59 PM EMBROIDERER HAND Unknown Provider LAB POCT ORDERABLES- MANUAL Performing Organization Address City/[facility]/ZIP Co de Phone Number POC [facility] [address] [place] [address], [facility] PCLX [facility] POC [address] [place] [address] * (ABNORMAL) Glucose, POCT (09/19/2023 11:20 PM EMBROIDERER HAND) Glucose, POCT, B 148(H) 70 - 140 mg/dL 09/19/2023 11:22 PM EMBROIDERER HAND PCLX Site ARTLINE 09/19/2023 11:22 PM EMBROIDERER HAND PCLX Blood 09/19/2023 11:2 0 PM EMBROIDERER HAND 09/19/2023 11:22 PM EMBROIDERER HAND Unknown Provider LAB POCT ORDERABLES- MANUAL Performing Organization Address City/[facility]/ZIP Co de Phone Number POC [facility] [address] [place] [address], [facility] PCLX [facility] POC [address] [place] [address] * (ABNORMAL) Lactate, Whole Blood (09/19/2023 10:58 PM EMBROIDERER HAND) Lactate, B 2.6(H) 0.5 - 2.2 mmol/L 09/19/2023 11:05 PM EMBROIDERER HAND STMA Blood (Blood, Arterial) 09/19/2023 10:58 PM EMBROIDERER HAND 09/19/2023 11:04 PM EMBROIDERER HAND Lobito Melgar APRN, C.N.P., M.S.N. L AB BLOOD NON ADD-ON [facility] [address] [place] [address], [facility] STMA [facility] [address] [place] [address] * (ABNORMAL) Glucose, POCT (09/19/2023 10:27 PM EMBROIDERER HAND) Glucose, POCT, B 160(H) 70 - 140 mg/dL 09/19/2023 10:30 PM EMBROIDERER HAND PCLX Site ARTLINE 09/19/2023 10:30 PM EMBROIDERER HAND PCLX Blood 09/19/2023 10:2 7 PM EMBROIDERER HAND 09/19/2023 10:30 PM EMBROIDERER HAND Unknown Provider LAB POCT ORDERABLES- MANUAL Performing Organization Address City/[facility] Co de Phone Number POC [facility] [address] [place] [address], [facility] PCLX [facility] [address] [place] [address] * (ABNORMAL) Glucose, POCT (09/19/2023 9:24 PM EMBROIDERER HAND) Glucose, POCT, B 194(H) 70 - 140 mg/dL 09/19/2023 9:25 PM EMBROIDERER HAND PCLX Site ARTLINE 09/19/2023 9:25 PM EMBROIDERER HAND PCLX Blood 09/19/2023 9:24 PM EMBROIDERER HAND 09/19/2023 9:25 PM EMBROIDERER HAND Unknown Provider LAB POCT ORDERABLES- MANUAL Performing Organization Address [facility] [[email or web address]] de Phone Number [facility] [address] [place] [address], [facility] PCLX [facility] [address] [place] [address] * ECG 12 Lead (09/19/2023 8:14 PM EMBROIDERER HAND) Ventricular Rate ECG/Min 93 BPM MUSE PA Interval 134 ms MUSE QRSD Interval 84 ms MUSE QT Interval 374 ms MUSE QTC Interval 465 ms MUSE P [place] 74 degrees MUSE R [place] 14 degrees MUSE T Wave [place] 58 degrees MUSE 09/19/2023 8:14 PM EMBROIDERER HAND 09/19/2023 8:36 PM EMBROIDERER HAND Impressions MUSE - 09/19/2023 8:36 PM EMBROIDERER HAND Normal sinus rhythm Nonspecific ST and T wave abnormality When compared with ECG of 19-AUG-2023 15:24, No significant change was found Reviewed by MARIELA Dietz Narrative Procedure Note Joe Kumar Jr., M.D. - 09/19/2023 IMPRESSION: Normal sinus rhythm Nonspecific ST and T wave abnormality When compared with ECG of 19-AUG-2023 15:24, No significant change was found Reviewed by MARIELA Dietz Jenny Jay, B.Betty., B.A.O. ECG ORDERABLES Performing Organization Address [place] [facility]/ZIP Co de Phone Number MUSE NA * (ABNORMAL) Glucose, POCT (09/19/2023 7:58 PM EMBROIDERER HAND) Glucose, POCT, B 226(H) 70 - 140 mg/dL 09/19/2023 8:00 PM EMBROIDERER HAND PCLX Site ARTLINE 09/19/2023 8:00 PM EMBROIDERER HAND PCLX Blood 09/19/2023 7:58 PM EMBROIDERER HAND 09/19/2023 8:00 PM EMBROIDERER HAND Unknown Provider LAB POCT ORDERABLES- MANUAL Performing Organization Address [facility] Co de Phone Number POC [facility] [address] PCLX [facility] POC [address] [place] [address] * (ABNORMAL) Lactate, Whole Blood (09/19/2023 7:43 PM EMBROIDERER HAND) Pathologist [facility] Lactate, B 6.6(H) 0.5 - 2.2 mmol/L 09/19/2023 7:50 PM EMBROIDERER HAND STMA Blood (Blood, Arterial) 09/19/2023 7:43 PM EMBROIDERER HAND 09/19/2023 7:49 PM EMBROIDERER HAND Lobito Melgar APRN, C.N.P., M.S.N. L AB BLOOD NON ADD-ON Performing Organization Address City/[facility]/ZIP Co de Phone Number [facility] [address] [facility] 200 [place] [address] * Patient Status (09/19/2023 7:43 PM EMBROIDERER HAND) Pathologist [facility] O2 Flow 5.0L L/min 09/19/2023 7:49 PM EMBROIDERER HAND STMA Device NC 09/19/2023 7:49 PM EMBROIDERER HAND STMA Spont. breaths/min 21 09/19/2023 7:49 PM EMBROIDERER HAND STMA Blood 09/19/2023 7:43 PM EMBROIDERER HAND 09/19/2023 7:49 PM EMBROIDERER HAND Susu Fajardo LAB BLOOD NON ADD-ON [facility] 200 [place], [place] [id number] [place] [address] 200 [place] [address] * (ABNORMAL) Lactate (09/19/2023 7:43 PM EMBROIDERER HAND) [facility] Lactate, P 7.0(H) 0.5 - 2.2 mmol/L 09/19/2023 8:04 PM EMBROIDERER HAND STMA Blood (Blood, Venous) 09/19/2023 7:43 PM EMBROIDERER HAND 09/19/2023 7:49 PM EMBROIDERER HAND Susu R [facility] LAB BLOOD NON ADD-ON [facility] 200 [place] [address], [facility] 200 [place] [address] * (ABNORMAL) Blood Gas with Coox, Arterial (09/19/2023 7:43 PM EMBROIDERER HAND) [facility] pO2 157(H) 83 - 108 mm Hg 09/19/2023 7:50 PM EMBROIDERER HAND STMA pCO2 42 35 - 48 mm Hg 09/19/2023 7:50 PM EMBROIDERER HAND STMA pH 7.25(L) 7.35 - 7.45 pH 09/19/2023 7:50 PM EMBROIDERER HAND STMA Base Excess -9(L) -2 - 3 mmol/L 09/19/2023 7:50 PM EMBROIDERER HAND STMA HCO3 19(L) 22 - 26 mmol/L 09/19/2023 7:50 PM EMBROIDERER HAND STMA Hemoglobin, Venous 10.1(L) 13.2 - 16.6 g/dL 09/19/2023 7:50 PM EMBROIDERER HAND STMA O2Hb 97.3 94.0 - 98.0 % 09/19/2023 7:50 PM EMBROIDERER HAND STMA COHb 2.0 <3.0 % 09/19/2023 7:50 PM EMBROIDERER HAND STMA MetHb 1.0 <1.5 % 09/19/2023 7:50 PM EMBROIDERER HAND STMA CtO2 14.1(L) 18.0 - 21.0 vol % 09/19/2023 7:50 PM EMBROIDERER HAND STMA Arterial Sample Site Art Line 09/19/2023 7:50 PM EMBROIDERER HAND STMA Comment:Mina's test not don e. Blood (Blood, Arterial) 09/19/2023 7:43 PM EMBROIDERER HAND 09/19/2023 7:49 PM EMBROIDERER HAND Susu Fajardo LAB BLOOD NON ADD-ON Performing Organization Address City/[facility]/ZIP Co de Phone Number [facility] 200 [place] [address], [facility] 200 [place] [address] * (ABNORMAL) Glucose, POCT (09/19/2023 6:57 PM EMBROIDERER HAND) Pathologist [facility] Glucose, POCT, B 224(H) 70 - 140 mg/dL 09/19/2023 7:00 PM EMBROIDERER HAND PCLX Site ARTLINE 09/19/2023 7:00 PM EMBROIDERER HAND PCLX Blood 09/19/2023 6:57 PM EMBROIDERER HAND 09/19/2023 7:00 PM EMBROIDERER HAND Unknown Provider LAB POCT ORDERABLES- MANUAL POC [facility] 200 [place] [address], [facility] PCLX [facility] 200 [place] [address] * (ABNORMAL) Glucose, POCT (09/19/2023 6:23 PM EMBROIDERER HAND) Glucose, POCT, B 217(H) 70 - 140 mg/dL 09/19/2023 6:24 PM EMBROIDERER HAND PCLX Site ARTLINE 09/19/2023 6:24 PM EMBROIDERER HAND PCLX Blood 09/19/2023 6:23 PM EMBROIDERER HAND 09/19/2023 6:25 PM EMBROIDERER HAND Unknown Provider LAB POCT ORDERABLES- MANUAL POC [facility] [address] [place] [address], [place] PCLX [facility] POC [address] [place] [address] * DX Chest Portable 1 View (09/19/2023 5:45 PM EMBROIDERER HAND) Anatomical Region Laterality Modality Chest, Thoracic RST LOS, Tho racic ARZ LOS, Thoracic FLA LOS N/A Digital Radiography 09/19/2023 7:33 PM EMBROIDERER HAND Impressions 09/19/2023 8:26 PM EMBROIDERER HAND Interval retraction of the endotracheal tube, with tip now in the mid thoracic trachea. Otherwise no significant changes since 2:23 PM. Right IJ Hilliard-Sepideh catheter with tip in the main pulmonary artery. Sternotomy wires and mediastinal surgical clips. Aortic valve replacement. Mediastinal drains. Mild bilateral interstitial thickening and perihilar opacities. No definite pleural effusion. Aortic calcifications. Narrative 09/19/2023 8:26 PM EMBROIDERER HAND EXAM: ??DX CHEST PORTABLE 1 VIEW Procedure [...] perihilar opacities. No definitepleural effusion. Aortic calcifications. Raven BlackChJarrett, B.A.O. IMG DIAGNOSTIC IMAGING PROCEDURES * Transfuse Platelets : (09/19/2023 5:19 PM EMBROIDERER HAND) Radha Iqbal M.D. BLOOD TRANSFUSION OR DERABLES * Patient Status (09/19/2023 5:19 PM EMBROIDERER HAND) [facility] FIO2 0.50 0.21=AIR 09/19/2023 5:22 PM EMBROIDERER HAND STMA Device Vent 09/19/2023 5:22 PM EMBROIDERER HAND STMA Spont. breaths/min 21 09/19/2023 5:22 PM EMBROIDERER HAND STMA Blood 09/19/2023 5:19 PM EMBROIDERER HAND 09/19/2023 5:22 PM EMBROIDERER HAND Jenny Jay, RavenCh., B.A.O. LAB BLOOD NON ADD-ON Performing Organization Address City/[facility]/ZIP Co de Phone Number [facility] [address] [place] [address] * Fibrinogen (09/19/2023 5:19 PM EMBROIDERER HAND) [facility] Fibrinogen, P 269 200 - 393 mg/dL 09/19/2023 5:30 PM EMBROIDERER HAND STMA Blood (Blood, Venous) 09/19/2023 5:19 PM EMBROIDERER HAND 09/19/2023 5:22 PM EMBROIDERER HAND Jenny Jay, Nicky.Ch., B.A.O. LAB BLOOD ADD-ON Performing Organization Address City/[facility]/ZIP Co de Phone Number [facility] [address] [place] [address] * Prothrombin Time (PT) (09/19/2023 5:19 PM EMBROIDERER HAND) [facility] Prothrombin Time, P 12.4 9.4 - 12.5 sec 09/19/2023 5:30 PM EMBROIDERER HAND [facility] 1.1 0.9 - 1.1 09/19/2023 5:30 PM EMBROIDERER HAND STMA Comment: ----ADDITIONAL INFORMATION---- Standard intensity warfarin therapeutic range: 2.0 to 3.0 ?? High intensity warfarin therapeutic range: 2.5 to 3.5 Blood (Blood, Venous) 09/19/2023 5:19 PM EMBROIDERER HAND 09/19/2023 5:22 PM EMBROIDERER HAND Jenny Jay, RavenCh., B.A.O. LAB BLOOD ADD-ON Performing Organization Address [facility] Co de Phone Number [facility] 200 [place], [place] [phone] [place] [address] 200 [place] [address] * APTT (Activated Partial Thromboplastin Time) (09/19/2023 5:19 PM EMBROIDERER HAND) [facility] Activated Partial Thrombopl Time, P 31 25 - 37 sec 09/19/2023 5:32 PM EMBROIDERER HAND [facility] Blood (Blood, Venous) 09/19/2023 5:19 PM EMBROIDERER HAND 09/19/2023 5:22 PM EMBROIDERER HAND Jenny Jay, Nicky.Ch., B.A.O. LAB BLOOD ADD-ON Performing Organization Address City/[facility] Co de Phone Number [facility] 200 [place] [address], [facility] 200 [place] [address] * (ABNORMAL) CBC without Differential (09/19/2023 5:19 PM EMBROIDERER HAND) [facility] Hemoglobin 9.5(L) 13.2 - 16.6 g/dL 09/19/2023 5:24 PM EMBROIDERER HAND STMA Hematocrit 27.5(L) 38.3 - 48.6 % 09/19/2023 5:24 PM EMBROIDERER HAND STMA Erythrocytes 3.14(L) 4.35 - 5.65 x10(12)/L 09/19/2023 5:24 PM EMBROIDERER HAND STMA MCV 87.6 78.2 - 97.9 fL 09/19/2023 5:24 PM EMBROIDERER HAND STMA RBC Distrib Width 13.3 11.8 - 14.5 % 09/19/2023 5:24 PM EMBROIDERER HAND STMA Platelet Count 163 135 - 317 x10(9)/L 09/19/2023 5:24 PM EMBROIDERER HAND STMA Leukocytes 13.3(H) 3.4 - 9.6 x10(9)/L 09/19/2023 5:24 PM EMBROIDERER HAND STMA Blood (Blood, Venous) 09/19/2023 5:19 PM EMBROIDERER HAND 09/19/2023 5:22 PM EMBROIDERER HAND Jenny Jay, Nicky.Ch., B.A.O. LAB BLOOD ADD-ON [facility] 200 [place] [address], [facility] 200 [place] [address] * (ABNORMAL) Lactate, Whole Blood (09/19/2023 5:19 PM EMBROIDERER HAND) [facility] Lactate, B 2.9(H) 0.5 - 2.2 mmol/L 09/19/2023 5:27 PM EMBROIDERER HAND STMA Blood (Blood, Arterial) 09/19/2023 5:19 PM EMBROIDERER HAND 09/19/2023 5:22 PM EMBROIDERER HAND Jenny Jay, Nicky.Ch., B.A.O. LAB BLOOD NON ADD-ON [facility] 200 [place] [address], [facility] 200 [place] [address] * (ABNORMAL) Blood Gas with Coox, Arterial (09/19/2023 5:19 PM EMBROIDERER HAND) pO2 192(H) 83 - 108 mm Hg 09/19/2023 5:27 PM EMBROIDERER HAND STMA pCO2 36 35 - 48 mm Hg 09/19/2023 5:27 PM EMBROIDERER HAND STMA pH 7.37 7.35 - 7.45 pH 09/19/2023 5:27 PM EMBROIDERER HAND STMA Base Excess -4(L) -2 - 3 mmol/L 09/19/2023 5:27 PM EMBROIDERER HAND STMA HCO3 20(L) 22 - 26 mmol/L 09/19/2023 5:27 PM EMBROIDERER HAND STMA Hemoglobin, Venous 9.9(L) 13.2 - 16.6 g/dL 09/19/2023 5:27 PM EMBROIDERER HAND STMA O2Hb 95.6 94.0 - 98.0 % 09/19/2023 5:27 PM EMBROIDERER HAND STMA COHb 1.1 <3.0 % 09/19/2023 5:27 PM EMBROIDERER HAND STMA MetHb 2.2(H) <1.5 % 09/19/2023 5:27 PM EMBROIDERER HAND STMA CtO2 13.7(L) 18.0 - 21.0 vol % 09/19/2023 5:27 PM EMBROIDERER HAND STMA Arterial Sample Site Art Line 09/19/2023 5:27 PM EMBROIDERER HAND STMA Comment:Mina's test not don e. Blood (Blood, Arterial) 09/19/2023 5:19 PM EMBROIDERER HAND 09/19/2023 5:22 PM EMBROIDERER HAND Jenny Jay, B.Ch., B.A.O. LAB BLOOD NON ADD-ON [facility] [address] [place] [address], [facility] [address] [place] [address] * (ABNORMAL) Basic Metabolic Panel (09/19/2023 5:19 PM EMBROIDERER HAND) Pathologist [facility] Potassium, P 4.6 3.6 - 5.2 mmol/L 09/19/2023 5:38 PM EMBROIDERER HAND STMA Sodium, P 140 135 - 145 mmol/L 09/19/2023 5:38 PM EMBROIDERER HAND STMA Chloride, P 107 98 - 107 mmol/L 09/19/2023 5:38 PM EMBROIDERER HAND STMA Bicarbonate, P 20(L) 22 - 29 mmol/L 09/19/2023 5:38 PM EMBROIDERER HAND STMA Anion Gap, P 13 7 - 15 09/19/2023 5:38 PM EMBROIDERER HAND STMA BUN (Blood Urea Nitrogen), P 19 8 - 24 mg/dL 09/19/2023 5:38 PM EMBROIDERER HAND STMA Creatinine 1.39(H) 0.74 - 1.35 mg/dL 09/19/2023 5:38 PM EMBROIDERER HAND STMA Estimated GFR (eGFR) 54(L) >=60 mL/min/BSA 09/19/2023 5:38 PM EMBROIDERER HAND STMA Comment: Estimated GFR calculated using the 2020 CKD_EPI creatinine equation. Calcium, Total, P 10.7(H) 8.8 - 10.2 mg/dL 09/19/2023 5:38 PM EMBROIDERER HAND STMA Glucose, P 201(H) 70 - 140 mg/dL 09/19/2023 5:38 PM EMBROIDERER HAND STMA Blood (Blood, Venous) 09/19/2023 5:19 PM EMBROIDERER HAND 09/19/2023 5:22 PM EMBROIDERER HAND Jenny Jay, B.Ch., B.A.O. LAB BLOOD ADD-ON [facility] [address] [place] [address], [facility] [address] [place] [address] * (ABNORMAL) Cystatin C with Estimated GFR (09/19/2023 5:19 PM EMBROIDERER HAND) eGFR by Cystatin C 59(L) >60 mL/min/BSA 09/19/2023 8:00 PM EMBROIDERER HAND DTL Comment: Estimated GFR calculated using the [...] 0.67 - 1.21 mg/L 09/19/2023 8:00 PM EMBROIDERER HAND DTL Blood (Blood, Arterial Line) 09/19/2023 5:19 PM EMBROIDERER HAND 09/19/2023 5:53 PM EMBROIDERER HAND Zoraida Salmeron M.D., Ph.D. LAB BLOOD AD D-ON Performing Organization Address [facility] Co de Phone Number [facility] [address] [place] [address] * (ABNORMAL) Platelet Count (09/19/2023 4:20 PM EMBROIDERER HAND) Platelet Count 94(L) 135 - 317 x10(9)/L 09/19/2023 4:27 PM EMBROIDERER HAND STMA Blood (Blood, Arterial Line) 09/19/2023 4:20 PM EMBROIDERER HAND 09/19/2023 4:20 PM EMBROIDERER HAND Rowena Antonio M.D. LAB BLOOD ADD-O N Performing Organization Address [facility] Co de Phone Number [facility] [address] [place] [address] * Prothrombin Time (PT) (09/19/2023 4:20 PM EMBROIDERER HAND) Prothrombin Time, P 12.3 9.4 - 12.5 sec 09/19/2023 4:32 PM EMBROIDERER HAND STMA INR 1.1 0.9 - 1.1 09/19/2023 4:32 PM EMBROIDERER HAND STMA Comment: ----ADDITIONAL INFORMATION---- Standard intensity warfarin therapeutic range: 2.0 to 3.0 ?? High intensity warfarin therapeutic range: 2.5 to 3.5 Blood (Blood, Arterial Line) 09/19/2023 4:20 PM EMBROIDERER HAND 09/19/2023 4:20 PM EMBROIDERER HAND Rowena Antonio M.D. LAB BLOOD ADD-O N [facility] [address] [place] [address], [facility] [address] [place] [address] * Fibrinogen (09/19/2023 4:20 PM EMBROIDERER HAND) Pathologist [facility] Fibrinogen, P 246 200 - 393 mg/dL 09/19/2023 4:32 PM EMBROIDERER HAND [facility] Blood (Blood, Arterial Line) 09/19/2023 4:20 PM EMBROIDERER HAND 09/19/2023 4:20 PM EMBROIDERER HAND Rowena Antonio M.D. LAB BLOOD ADD-O N Performing Organization Address City/[facility]/ZIP Co de Phone Number [facility] [address] [place] [address], [facility] [address] [place] [address] * APTT (Activated Partial Thromboplastin Time) (09/19/2023 4:20 PM EMBROIDERER HAND) [facility] Activated Partial Thrombopl Time, P 32 25 - 37 sec 09/19/2023 4:34 PM EMBROIDERER HAND [facility] Blood (Blood, Arterial Line) 09/19/2023 4:20 PM EMBROIDERER HAND 09/19/2023 4:20 PM EMBROIDERER HAND Rowena Antonio M.D. LAB BLOOD ADD-O N Performing Organization Address City/[facility]/ZIP Co de Phone Number [facility] [address] [place], [place] [id number] [place] [address] [address] [place] [address] * (ABNORMAL) Lactate, B - Intra-op (09/19/2023 4:20 PM EMBROIDERER HAND) Lactate, B 2.9(H) 0.5 - 2.2 mmol/L 09/19/2023 4:23 PM EMBROIDERER HAND STMA Blood (Blood, Venous) 09/19/2023 4:20 PM EMBROIDERER HAND 09/19/2023 4:20 PM EMBROIDERER HAND Rowena Antonio M.D. LAB BLOOD NON A DD-ON [facility] [address] [place], [place] [id number] [place] [address] [address] [place] [address] * (ABNORMAL) Glucose, Whole Blood (09/19/2023 4:20 PM EMBROIDERER HAND) Glucose 152(H) 70 - 140 mg/dL 09/19/2023 4:23 PM EMBROIDERER HAND STMA Blood (Blood, Arterial Line) 09/19/2023 4:20 PM EMBROIDERER HAND 09/19/2023 4:20 PM EMBROIDERER HAND Rowena Antonio M.D. LAB BLOOD ADD-O N Performing Organization Address City/[facility]/ZIP Co de Phone Number [facility] [address] [place], [place] [address] [place] [address] [address] [place] [address] * Potassium, Blood (09/19/2023 4:20 PM EMBROIDERER HAND) Potassium, B 4.7 3.6 - 5.2 mmol/L 09/19/2023 4:23 PM EMBROIDERER HAND [facility] Blood (Blood, Arterial Line) 09/19/2023 4:20 PM EMBROIDERER HAND 09/19/2023 4:20 PM EMBROIDERER HAND Rowena Antonio M.D. LAB BLOOD NON A DD-ON [facility] [address] [place] [address], [facility] 200 [place] [address] * Sodium, B (09/19/2023 4:20 PM EMBROIDERER HAND) Sodium, B 139 135 - 145 mmol/L 09/19/2023 4:23 PM EMBROIDERER HAND STMA Blood (Blood, Arterial Line) 09/19/2023 4:20 PM EMBROIDERER HAND 09/19/2023 4:20 PM EMBROIDERER HAND Rowena Antonio M.D. LAB BLOOD NON A DD-ON Performing Organization Address City/[facility]/ZIP Co de Phone Number [facility] 200 [place] [address], [facility] 200 [place] [address] * Calcium, Ionized (09/19/2023 4:20 PM EMBROIDERER HAND) Pathologist [facility] Calcium, Ionized, B 5.02 4.65 - 5.30 mg/dL 09/19/2023 4:23 PM EMBROIDERER HAND STMA Blood (Blood, Arterial Line) 09/19/2023 4:20 PM EMBROIDERER HAND 09/19/2023 4:20 PM EMBROIDERER HAND Rowena Antonio M.D. LAB BLOOD NON A DD-ON Performing Organization Address City/[facility]/ZIP Co de Phone Number [facility] 200 [place] [address], [facility] 200 [place] [address] * (ABNORMAL) Blood Gas with Coox, Arterial (09/19/2023 4:20 PM EMBROIDERER HAND) pO2 139(H) 83 - 108 mm Hg 09/19/2023 4:23 PM EMBROIDERER HAND STMA pCO2 35 35 - 48 mm Hg 09/19/2023 4:23 PM EMBROIDERER HAND STMA pH 7.43 7.35 - 7.45 pH 09/19/2023 4:23 PM EMBROIDERER HAND STMA Base Excess -1 -2 - 3 mmol/L 09/19/2023 4:23 PM EMBROIDERER HAND STMA HCO3 23 22 - 26 mmol/L 09/19/2023 4:23 PM EMBROIDERER HAND STMA Hemoglobin, Venous 8.9(L) 13.2 - 16.6 g/dL 09/19/2023 4:23 PM EMBROIDERER HAND STMA O2Hb 97.3 94.0 - 98.0 % 09/19/2023 4:23 PM EMBROIDERER HAND STMA COHb 1.4 <3.0 % 09/19/2023 4:23 PM EMBROIDERER HAND STMA MetHb <1.0 <1.5 % 09/19/2023 4:23 PM EMBROIDERER HAND STMA CtO2 12.4(L) 18.0 - 21.0 vol % 09/19/2023 4:23 PM EMBROIDERER HAND STMA Blood (Blood, Arterial Line) 09/19/2023 4:20 PM EMBROIDERER HAND 09/19/2023 4:20 PM EMBROIDERER HAND Rowena Antonio M.D. LAB BLOOD NON A DD-ON Performing Organization Address City/State/[facility] Co de Phone Number [facility] [address] [place] [address], [facility] STMA [facility] [address] [place] [address] * Transfuse Pooled Cryoprecipitate: (09/19/2023 3:54 PM EMBROIDERER HAND) Rowena Antonio M.D. BLOOD TRANSFUSI ON ORDERABLES * Transfuse Pooled Cryoprecipitate: (09/19/2023 3:54 PM EMBROIDERER HAND) Rowena Antonio M.D. BLOOD TRANSFUSI ON ORDERABLES * Transfuse Red Blood Cells : (09/19/2023 3:50 PM EMBROIDERER HAND) Radha Iqbal M.D. BLOOD TRANSFUSION OR DERABLES * Thromboelastograph, Kaolin, Blood (09/19/2023 3:37 PM EMBROIDERER HAND) R, Kaolin, TEG 4.8 4.0 - 9.0 min 09/19/2023 5:46 PM EMBROIDERER HAND STMA K, Kaolin, TEG 1.3 1.0 - 1.8 min 09/19/2023 5:46 PM EMBROIDERER HAND STMA Angle, Kaolin, TEG 70.0 64.0 - 78.1 degrees 09/19/2023 5:46 PM EMBROIDERER HAND STMA MA, Kaolin, TEG 65.4 57.1 - 72.6 mm 09/19/2023 5:46 PM EMBROIDERER HAND STMA Ly30, Kaolin, TEG 0.0 0.0 - 4.8 % 09/19/2023 5:46 PM EMBROIDERER HAND STMA Blood (Blood, Arterial Line) 09/19/2023 3:37 PM EMBROIDERER HAND 09/19/2023 3:37 PM EMBROIDERER HAND Rowena Antonio M.D. LAB BLOOD NON A DD-ON Performing Organization Address City/[facility] Co de Phone Number [facility] [address] [place] [address], [facility] STMA [facility] [address] [place] [address] * Thromboelastograph, Kaolin + Heparinase (09/19/2023 3:37 PM EMBROIDERER HAND) R-Heparinase, TEG 4.7 1.9 - 6.5 min 09/19/2023 5:46 PM EMBROIDERER HAND STMA K-Heparinase, TEG 1.3 1.0 - 1.9 min 09/19/2023 5:46 PM EMBROIDERER HAND STMA Angle-Heparina se, TEG 72.0 63.5 - 75.1 degrees 09/19/2023 5:46 PM EMBROIDERER HAND STMA MA-Heparinase, TEG 65.9 57.7 - 69.3 mm 09/19/2023 5:46 PM EMBROIDERER HAND STMA Ck95-Uihiueeiz e, TEG 0.0 0.0 - 4.7 % 09/19/2023 5:46 PM EMBROIDERER HAND STMA Ah67-Elhbybfya e, TEG 1.1 0.0 - 15.0 % 09/19/2023 5:46 PM EMBROIDERER HAND STMA Blood (Blood, Arterial Line) 09/19/2023 3:37 PM EMBROIDERER HAND 09/19/2023 3:37 PM EMBROIDERER HAND Rowena Antonio M.D. LAB BLOOD NON A DD-ON Performing Organization Address City/State/[facility] Co de Phone Number [facility] 200 [place], [place] [phone] [place] [address] 200 [place] [address] * (ABNORMAL) Platelet Count (09/19/2023 3:37 PM EMBROIDERER HAND) Platelet Count 108(L) 135 - 317 x10(9)/L 09/19/2023 3:45 PM EMBROIDERER HAND [facility] Blood (Blood, Arterial Line) 09/19/2023 3:37 PM EMBROIDERER HAND 09/19/2023 3:37 PM EMBROIDERER HAND Rowena Antonio M.D. LAB BLOOD ADD-O N Performing Organization Address [facility] Co de Phone Number [facility] [address] [place] [address] * (ABNORMAL) Prothrombin Time (PT) (09/19/2023 3:37 PM EMBROIDERER HAND) Prothrombin Time, P 16.1(H) 9.4 - 12.5 sec 09/19/2023 3:51 PM EMBROIDERER HAND [facility] IN[facility] 1.5 0.9 - 1.1 09/19/2023 3:51 PM EMBROIDERER HAND [facility] Comment: ----ADDITIONAL INFORMATION---- Standard intensity warfarin therapeutic range: 2.0 to 3.0 ?? High intensity warfarin therapeutic range: 2.5 to 3.5 Blood (Blood, Arterial Line) 09/19/2023 3:37 PM EMBROIDERER HAND 09/19/2023 3:37 PM EMBROIDERER HAND Rowena Antonio M.D. LAB BLOOD ADD-O N Performing Organization Address [facility] Co de Phone Number [facility] 200 [place], [place] [phone] [place] [address] 200 [place] [address] * (ABNORMAL) Fibrinogen (09/19/2023 3:37 PM EMBROIDERER HAND) [facility] Fibrinogen, P 169(L) 200 - 393 mg/dL 09/19/2023 3:51 PM EMBROIDERER HAND STMA Blood (Blood, Arterial Line) 09/19/2023 3:37 PM EMBROIDERER HAND 09/19/2023 3:37 PM EMBROIDERER HAND Rowena Antonio M.D. LAB BLOOD ADD-O N Performing Organization Address City/[facility]/ZIP Co de Phone Number [facility] [address] [place] [address] * APTT (Activated Partial Thromboplastin Time) (09/19/2023 3:37 PM EMBROIDERER HAND) [facility] Activated Partial Thrombopl Time, P 34 25 - 37 sec 09/19/2023 3:53 PM [facility] HAND [facility] Blood (Blood, Arterial Line) 09/19/2023 3:37 PM EMBROIDERER HAND 09/19/2023 3:37 PM EMBROIDERER HAND Rowena Antonio M.D. LAB BLOOD ADD-O N Performing Organization Address [facility] Co de Phone Number [facility] 200 [place], [place] [id number] [place] [address] 200 [place] [address] * (ABNORMAL) Lactate, B - Intra-op (09/19/2023 3:37 PM EMBROIDERER HAND) [facility] Lactate, B 3.1(H) 0.5 - 2.2 mmol/L 09/19/2023 3:41 PM EMBROIDERER HAND STMA Blood (Blood, Venous) 09/19/2023 3:37 PM EMBROIDERER HAND 09/19/2023 3:37 PM EMBROIDERER HAND Rowena Antonio M.D. LAB BLOOD NON A DD-ON Performing Organization Address City/[facility]/ZIP Co de Phone Number [facility] [address] [place] [address] * (ABNORMAL) Glucose, Whole Blood (09/19/2023 3:37 PM EMBROIDERER HAND) Glucose 148(H) 70 - 140 mg/dL 09/19/2023 3:41 PM EM[facility]OIDERER HAND [facility] Blood (Blood, Arterial Line) 09/19/2023 3:37 PM EMBROIDERER HAND 09/19/2023 3:37 PM EMBROIDERER HAND Rowena Antonio M.D. LAB BLOOD ADD-O N [facility] [address] [place] [address] * Potassium, Blood (09/19/2023 3:37 PM EMBROIDERER HAND) Potassium, B 4.6 3.6 - 5.2 mmol/L 09/19/2023 3:41 PM EM[facility]OID[facility]ER HAND [facility] Blood (Blood, Arterial Line) 09/19/2023 3:37 PM EMBROIDERER HAND 09/19/2023 3:37 PM EMBROIDERER HAND Rowena Antonio M.D. LAB BLOOD NON A DD-ON [facility] 200 [place] [address], [facility] 200 [place] [address] * Sodium, B (09/19/2023 3:37 PM EMBROIDERER HAND) Sodium, B 140 135 - 145 mmol/L 09/19/2023 3:41 PM EMBROIDERER HAND [facility] Blood (Blood, Arterial Line) 09/19/2023 3:37 PM EMBROIDERER HAND 09/19/2023 3:37 PM EMBROIDERER HAND Rowena Antonio M.D. LAB BLOOD NON A DD-ON Performing Organization Address City/[facility] Co de Phone Number [facility] 200 [place], [place] [id number] [place] [address] 200 [place] [address] * Calcium, Ionized (09/19/2023 3:37 PM EMBROIDERER HAND) Pathologist [facility] Calcium, Ionized, B 4.83 4.65 - 5.30 mg/dL 09/19/2023 3:41 PM EMBROIDERER HAND [facility] Blood (Blood, Arterial Line) 09/19/2023 3:37 PM EMBROIDERER HAND 09/19/2023 3:37 PM EMBROIDERER HAND Rowena Antonio M.D. LAB BLOOD NON A DD-ON Performing Organization Address City/[facility] Co de Phone Number [facility] [address] [place] [address], [place] [address] * (ABNORMAL) Blood Gas with Coox, Arterial (09/19/2023 3:37 PM EMBROIDERER HAND) Pathologist [facility] pO2 101 83 - 108 mm Hg 09/19/2023 3:41 PM EMBROIDERER HAND [facility] pCO2 40 35 - 48 mm Hg 09/19/2023 3:41 PM EMBROIDERER HAND [facility] pH 7.37 7.35 - 7.45 pH 09/19/2023 3:41 PM EMBROIDERER HAND [facility] Base Excess -3(L) -2 - 3 mmol/L 09/19/2023 3:41 PM EMBROIDERER HAND [facility] HCO3 23 22 - 26 mmol/L 09/19/2023 3:41 PM EMBROIDERER HAND [facility] Hemoglobin, Venous 8.1(L) 13.2 - 16.6 g/dL 09/19/2023 3:41 PM EMBROIDERER HAND [facility] O2Hb 96.3 94.0 - 98.0 % 09/19/2023 3:41 PM EMBROIDERER HAND [facility] COHb 1.4 <3.0 % 09/19/2023 3:41 PM EMBROIDERER HAND [facility] MetHb 1.0 <1.5 % 09/19/2023 3:41 PM EMBROIDERER HAND [facility] CtO2 11.1(L) 18.0 - 21.0 vol % 09/19/2023 3:41 PM EMBROIDERER HAND [facility] Blood (Blood, Arterial Line) 09/19/2023 3:37 PM EMBROIDERER HAND 09/19/2023 3:37 PM EMBROIDERER HAND Rowena Antonio M.D. LAB BLOOD NON A DD-ON Performing Organization Address [facility] Co de Phone Number [facility] [address] [place] [address] * Transfuse Red Blood Cells : (09/19/2023 3:23 PM EMBROIDERER HAND) Radha Iqbal M.D. BLOOD TRANSFUSION OR DERABLES * (ABNORMAL) Platelet Count (09/19/2023 2:46 PM EMBROIDERER HAND) Platelet Count 115(L) 135 - 317 x10(9)/L 09/19/2023 2:56 PM EMBROIDERER HAND [facility] Blood (Blood, Arterial Line) 09/19/2023 2:46 PM EMBROIDERER HAND 09/19/2023 2:46 PM EMBROIDERER HAND Rowena Antonio M.D. LAB BLOOD ADD-O N Performing Organization Address City/[facility] Co de Phone Number [facility] [address] [place] [address], [facility] [address] [place] [address] * (ABNORMAL) Prothrombin Time (PT) (09/19/2023 2:46 PM EMBROIDERER HAND) Prothrombin Time, P 15.4(H) 9.4 - 12.5 sec 09/19/2023 2:58 PM EMBROIDERER HAND [facility] INR 1.4 0.9 - 1.1 09/19/2023 2:58 PM EMBROIDERER HAND [facility] Comment: ----ADDITIONAL INFORMATION---- Standard intensity warfarin therapeutic range: 2.0 to 3.0 ?? High intensity warfarin therapeutic range: 2.5 to 3.5 Blood (Blood, Arterial Line) 09/19/2023 2:46 PM EMBROIDERER HAND 09/19/2023 2:46 PM EMBROIDERER HAND Rowena Antonio M.D. LAB BLOOD ADD-O N Performing Organization Address City/[facility]/ZIP Co de Phone Number [facility] 200 [place], [place] [phone] [place] [address] 200 [place] [address] * (ABNORMAL) Fibrinogen (09/19/2023 2:46 PM EMBROIDERER HAND) Pathologist [facility] Fibrinogen, P 189(L) 200 - 393 mg/dL 09/19/2023 2:58 PM EMBROIDERER HAND [facility] Blood (Blood, Arterial Line) 09/19/2023 2:46 PM EMBROIDERER HAND 09/19/2023 2:46 PM EMBROIDERER HAND Rowena Antonio M.D. LAB BLOOD ADD-O N Performing Organization Address [facility]/ZIP Co de Phone Number [facility] [address] [place], [place] [address] 200 [place] [address] * APTT (Activated Partial Thromboplastin Time) (09/19/2023 2:46 PM EMBROIDERER HAND) [facility] Activated Partial Thrombopl Time, P 32 25 - 37 sec 09/19/2023 3:00 PM EMBROIDERER HAND [facility] Blood (Blood, Arterial Line) 09/19/2023 2:46 PM EMBROIDERER HAND 09/19/2023 2:46 PM EMBROIDERER HAND Rowena Antonio M.D. LAB BLOOD ADD-O N Performing Organization Address City/[facility]/ZIP Co de Phone Number [facility] 200 [place], [place] [phone] [place] [address] 200 [place] [address] * Glucose, Whole Blood (09/19/2023 2:46 PM EMBROIDERER HAND) [facility] Glucose 139 70 - 140 mg/dL 09/19/2023 2:50 PM EMBROIDERER HAND [facility] Blood (Blood, Arterial Line) 09/19/2023 2:46 PM EMBROIDERER HAND 09/19/2023 2:46 PM EMBROIDERER HAND Rowena Antonio M.D. LAB BLOOD ADD-O N [facility] [address] [place] [address] * Potassium, Blood (09/19/2023 2:46 PM EMBROIDERER HAND) Potassium, B 3.8 3.6 - 5.2 mmol/L 09/19/2023 2:50 PM EMBROIDERER HAND [facility] Blood (Blood, Arterial Line) 09/19/2023 2:46 PM EMBROIDERER HAND 09/19/2023 2:46 PM EMBROIDERER HAND Rowena Antonio M.D. LAB BLOOD NON A DD-ON Performing Organization Address City/[facility]/ZIP Co de Phone Number [facility] [address] [place], [place] [phone] [place] [address] 200 [place] [address] * Sodium, B (09/19/2023 2:46 PM EMBROIDERER HAND) Sodium, B 141 135 - 145 mmol/L 09/19/2023 2:50 PM EMBROIDERER HAND [facility] Blood (Blood, Arterial Line) 09/19/2023 2:46 PM EMBROIDERER HAND 09/19/2023 2:46 PM EMBROIDERER HAND Rowena Antonio M.D. LAB BLOOD NON A DD-ON [facility] [address] [place], [place] [phone] [place] [address] [address] [place] [address] * (ABNORMAL) Calcium, Ionized (09/19/2023 2:46 PM EMBROIDERER HAND) Calcium, Ionized, B 5.36(H) 4.65 - 5.30 mg/dL 09/19/2023 2:50 PM EMBROIDERER HAND [facility] Blood (Blood, Arterial Line) 09/19/2023 2:46 PM EMBROIDERER HAND 09/19/2023 2:46 PM EMBROIDERER HAND Rowena Antonio M.D. LAB BLOOD NON A DD-ON [facility] [address] [place] [address], [facility] STMA [facility] [address] [place] [address] * (ABNORMAL) Blood Gas with Coox, Arterial (09/19/2023 2:46 PM EMBROIDERER HAND) Pathologist [facility] pO2 317(H) 83 - 108 mm Hg 09/19/2023 2:50 PM EMBROIDERER HAND [facility] pCO2 36 35 - 48 mm Hg 09/19/2023 2:50 PM EMBROIDERER HAND [facility] pH 7.42 7.35 - 7.45 pH 09/19/2023 2:50 PM EMBROIDERER HAND [facility] Base Excess -1 -2 - 3 mmol/L 09/19/2023 2:50 PM EMBROIDERER HAND [facility] HCO3 23 22 - 26 mmol/L 09/19/2023 2:50 PM EMBROIDERER HAND [facility] Hemoglobin, Venous 8.1(L) 13.2 - 16.6 g/dL 09/19/2023 2:50 PM EMBROIDERER HAND [facility] O2Hb 98.0 94.0 - 98.0 % 09/19/2023 2:50 PM EMBROIDERER HAND [facility] COHb 1.3 <3.0 % 09/19/2023 2:50 PM EMBROIDERER HAND [facility] MetHb 1.1 <1.5 % 09/19/2023 2:50 PM EMBROIDERER HAND [facility] CtO2 11.9(L) 18.0 - 21.0 vol % 09/19/2023 2:50 PM EMBROIDERER HAND [facility] Blood (Blood, Arterial Line) 09/19/2023 2:46 PM EMBROIDERER HAND 09/19/2023 2:46 PM EMBROIDERER HAND Rowena Antonio M.D. LAB BLOOD NON A DD-ON [facility] [address] [place] [address], [facility] [address] [place] [address] * DX Chest Retained Surgical Item 1 View (09/19/2023 2:30 PM EMBROIDERER HAND) Anatomical Region Laterality Modality Chest, Thoracic RST LOS, Tho racic ARZ LOS, Thoracic FLA LOS N/A Digital Radiography 09/19/2023 2:32 PM EMBROIDERER HAND Impressions 09/19/2023 2:39 PM EMBROIDERER HAND The aforementioned object in question is not identified. New sternotomy, mediastinal clips, AVR, mediastinal drains, right IJ Hilliard-Sepideh catheter tip at the MPA are identified. Likely small amount of mediastinal air. ET tube tip is low lying, approximately 1 cm above the blaine, correlation with chin position is recommended. Loop recorder. Shallower inspiration with accentuation of the cardiac silhouette and vascular crowding. Discussed with Dr. Stanford at 2:36 PM on 09/19/2023. Narrative 09/19/2023 2:39 PM EMBROIDERER HAND EXAM: DX CHEST RETAINED SURGICAL ITEM 1 [...] sternotomy,mediastinal clips, AVR, mediastinal drains, right IJ Hilliard-Sepideh cathetertip at the MPA are identified. Likely [...] * Transfuse Platelets : (09/19/2023 2:17 PM EMBROIDERER HAND) Radha Iqbal M.D. BLOOD TRANSFUSION OR DERABLES * Transfuse Red Blood Cells : (09/19/2023 2:00 PM EMBROIDERER HAND) Radha Iqbal M.D. BLOOD TRANSFUSION OR DERABLES * (ABNORMAL) Platelet Count (09/19/2023 1:40 PM EMBROIDERER HAND) Pathologist [facility] Platelet Count 95(L) 135 - 317 x10(9)/L 09/19/2023 1:44 PM EMBROIDERER HAND [facility] Blood (Blood, Arterial Line) 09/19/2023 1:40 PM EMBROIDERER HAND 09/19/2023 1:40 PM EMBROIDERER HAND Radha Iqbal M.D. LAB BLOOD ADD-ON Performing Organization Address City/[facility] Co de Phone Number [facility] [address] [place] [address], [place] [address] * (ABNORMAL) Prothrombin Time (PT) (09/19/2023 1:40 PM EMBROIDERER HAND) Pathologist [facility] Prothrombin Time, P 16.5(H) 9.4 - 12.5 sec 09/19/2023 1:55 PM EMBROIDERER HAND [facility] INR 1.5 0.9 - 1.1 09/19/2023 1:55 PM EMBROIDERER HAND [facility] Comment: ----ADDITIONAL INFORMATION---- Standard intensity warfarin therapeutic range: 2.0 to 3.0 ?? High intensity warfarin therapeutic range: 2.5 to 3.5 Blood (Blood, Arterial Line) 09/19/2023 1:40 PM EMBROIDERER HAND 09/19/2023 1:40 PM EMBROIDERER HAND Radha Iqbal M.D. LAB BLOOD ADD-ON [facility] [address] [place] [address], [facility] 200 [place] [address] * (ABNORMAL) Fibrinogen (09/19/2023 1:40 PM EMBROIDERER HAND) Fibrinogen, P 174(L) 200 - 393 mg/dL 09/19/2023 1:56 PM EMBROIDERER HAND [facility] Blood (Blood, Arterial Line) 09/19/2023 1:40 PM EMBROIDERER HAND 09/19/2023 1:40 PM EMBROIDERER HAND Radha Iqbal M.D. LAB BLOOD ADD-ON [facility] [address] [place], [place] [address] [address] [place] [address] * APTT (Activated Partial Thromboplastin Time) (09/19/2023 1:40 PM EMBROIDERER HAND) Activated Partial Thrombopl Time, P 33 25 - 37 sec 09/19/2023 1:56 PM EMBROIDERER HAND [facility] Blood (Blood, Arterial Line) 09/19/2023 1:40 PM EMBROIDERER HAND 09/19/2023 1:40 PM EMBROIDERER HAND Radha Iqbal M.D. LAB BLOOD ADD-ON [facility] [address] [place] [address], [facility] 200 [place] [address] * (ABNORMAL) Glucose, Whole Blood (09/19/2023 1:40 PM EMBROIDERER HAND) Glucose 155(H) 70 - 140 mg/dL 09/19/2023 1:43 PM EMBROIDERER HAND [facility] Blood (Blood, Arterial Line) 09/19/2023 1:40 PM EMBROIDERER HAND 09/19/2023 1:40 PM EMBROIDERER HAND Radha Iqbal M.D. LAB BLOOD ADD-ON Performing Organization Address City/[facility]/ZIP Co de Phone Number [facility] [address] [place], [place] [phone] [place] [address] 200 [place] [address] * (ABNORMAL) Potassium, Blood (09/19/2023 1:40 PM EMBROIDERER HAND) Potassium, B 3.3(L) 3.6 - 5.2 mmol/L 09/19/2023 1:43 PM EMBROIDERER HAND [facility] Blood (Blood, Arterial Line) 09/19/2023 1:40 PM EMBROIDERER HAND 09/19/2023 1:40 PM EMBROIDERER HAND Radha Iqbal M.D. LAB BLOOD NON ADD-ON Performing Organization Address City/[facility]/ZIP Co de Phone Number [facility] [address] [place], [place] [phone] [place] [address] 200 [place] [address] * Sodium, B (09/19/2023 1:40 PM EMBROIDERER HAND) Sodium, B 143 135 - 145 mmol/L 09/19/2023 1:43 PM EMBROIDERER HAND [facility] Blood (Blood, Arterial Line) 09/19/2023 1:40 PM EMBROIDERER HAND 09/19/2023 1:40 PM EMBROIDERER HAND Radha Iqbal M.D. LAB BLOOD NON ADD-ON [facility] [address] [place] [address], [facility] [address] [place] [address] * (ABNORMAL) Calcium, Ionized (09/19/2023 1:40 PM EMBROIDERER HAND) Calcium, Ionized, B 3.81(L) 4.65 - 5.30 mg/dL 09/19/2023 1:43 PM EMBROIDERER HAND [facility] Blood (Blood, Arterial Line) 09/19/2023 1:40 PM EMBROIDERER HAND 09/19/2023 1:40 PM EMBROIDERER HAND Radha Iqbal M.D. LAB BLOOD NON ADD-ON [facility] [address] [place] [address], [facility] STMA [facility] [address] [place] [address] * (ABNORMAL) Blood Gas with Coox, Arterial (09/19/2023 1:40 PM EMBROIDERER HAND) [facility] pO2 101 83 - 108 mm Hg 09/19/2023 1:43 PM EMBROIDERER HAND [facility] pCO2 36 35 - 48 mm Hg 09/19/2023 1:43 PM EMBROIDERER HAND [facility] pH 7.40 7.35 - 7.45 pH 09/19/2023 1:43 PM EMBROIDERER HAND [facility] Base Excess -3(L) -2 - 3 mmol/L 09/19/2023 1:43 PM EMBROIDERER HAND [facility] HCO3 22 22 - 26 mmol/L 09/19/2023 1:43 PM EMBROIDERER HAND [facility] Hemoglobin, Venous 7.2(L) 13.2 - 16.6 g/dL 09/19/2023 1:43 PM EMBROIDERER HAND [facility] O2Hb 97.1 94.0 - 98.0 % 09/19/2023 1:43 PM EMBROIDERER HAND [facility] COHb 1.4 <3.0 % 09/19/2023 1:43 PM EMBROIDERER HAND [facility] MetHb <1.0 <1.5 % 09/19/2023 1:43 PM EMBROIDERER HAND [facility] CtO2 10.1(L) 18.0 - 21.0 vol % 09/19/2023 1:43 PM EMBROIDERER HAND [facility] Blood (Blood, Arterial Line) 09/19/2023 1:40 PM EMBROIDERER HAND 09/19/2023 1:40 PM EMBROIDERER HAND Radha Iqbal M.D. LAB BLOOD NON ADD-ON [facility] [address] [place] [address], [facility] STMA [facility] [address] [place] [address] * Transfuse autologous RBC (Cell Salvage) : (09/19/2023 1:28 PM EMBROIDERER HAND) Radha Iqbal M.D. BLOOD TRANSFUSION OR DERABLES * Transfuse Fresh Frozen Plasma : (09/19/2023 1:24 PM EMBROIDERER HAND) Radha Iqbal M.D. BLOOD TRANSFUSION OR DERABLES * Transfuse Platelets : (09/19/2023 1:09 PM EMBROIDERER HAND) Radha Iqbal M.D. BLOOD TRANSFUSION OR DERABLES * Lactate, B - Intra-op (09/19/2023 12:45 PM EMBROIDERER HAND) Pathologist [facility] Lactate, B 2.0 0.5 - 2.2 mmol/L 09/19/2023 12:46 PM EMBROIDERER HAND [facility] Blood (Blood, Venous) 09/19/2023 12:45 PM EMBROIDERER HAND 09/19/2023 12:45 PM EMBROIDERER HAND Radha Iqbal M.D. LAB BLOOD NON ADD-ON [facility] [address] [place] [address], [facility] 200 [place] [address] * (ABNORMAL) Glucose, Whole Blood (09/19/2023 12:45 PM EMBROIDERER HAND) Pathologist [facility] Glucose 151(H) 70 - 140 mg/dL 09/19/2023 12:46 PM EMBROIDERER HAND [facility] Blood (Blood, Arterial Line) 09/19/2023 12:45 PM EMBROIDERER HAND 09/19/2023 12:45 PM EMBROIDERER HAND Radha Iqbal M.D. LAB BLOOD ADD-ON [facility] [address] [place] [address], [facility] 200 [place] [address] * Potassium, Blood (09/19/2023 12:45 PM EMBROIDERER HAND) Potassium, B 3.8 3.6 - 5.2 mmol/L 09/19/2023 12:46 PM EMBROIDERER HAND [facility] Blood (Blood, Arterial Line) 09/19/2023 12:45 PM EMBROIDERER HAND 09/19/2023 12:45 PM EMBROIDERER HAND Radha Iqbal M.D. LAB BLOOD NON ADD-ON [facility] [address] [place] [address], [facility] [address] [place] [address] * Sodium, B (09/19/2023 12:45 PM EMBROIDERER HAND) Sodium, B 142 135 - 145 mmol/L 09/19/2023 12:46 PM EMBROIDERER HAND [facility] Blood (Blood, Arterial Line) 09/19/2023 12:45 PM EMBROIDERER HAND 09/19/2023 12:45 PM EMBROIDERER HAND Radha Iqbal M.D. LAB BLOOD NON ADD-ON [facility] [address] [place] [address], [facility] [address] [place] [address] * Calcium, Ionized (09/19/2023 12:45 PM EMBROIDERER HAND) Pathologist [facility] Calcium, Ionized, B 4.86 4.65 - 5.30 mg/dL 09/19/2023 12:46 PM EMBROIDERER HAND [facility] Blood (Blood, Arterial Line) 09/19/2023 12:45 PM EMBROIDERER HAND 09/19/2023 12:45 PM EMBROIDERER HAND Radha Iqbal M.D. LAB BLOOD NON ADD-ON [facility] [address] [place] [address], [facility] [address] [place] [address] * (ABNORMAL) Blood Gas with Coox, Arterial (09/19/2023 12:45 PM EMBROIDERER HAND) pO2 360(H) 83 - 108 mm Hg 09/19/2023 12:46 PM EMBROIDERER HAND [facility] pCO2 37 35 - 48 mm Hg 09/19/2023 12:46 PM EMBROIDERER HAND [facility] pH 7.43 7.35 - 7.45 pH 09/19/2023 12:46 PM EMBROIDERER HAND ST[facility] Base Excess 0 -2 - 3 mmol/L 09/19/2023 12:46 PM EMBROIDERER HAND [facility] HCO3 25 22 - 26 mmol/L 09/19/2023 12:46 PM EMBROIDERER HAND ST[facility] Hemoglobin, Venous 8.5(L) 13.2 - 16.6 g/dL 09/19/2023 12:46 PM EMBROIDERER HAND [facility] O2Hb 98.9(H) 94.0 - 98.0 % 09/19/2023 12:46 PM EMBROIDERER HAND STMA COHb 1.1 <3.0 % 09/19/2023 12:46 PM EMBROIDERER HAND ST[facility] MetHb <1.0 <1.5 % 09/19/2023 12:46 PM EMBROIDERER HAND [facility] CtO2 12.8(L) 18.0 - 21.0 vol % 09/19/2023 12:46 PM EMBROIDERER HAND [facility] Blood (Blood, Arterial Line) 09/19/2023 12:45 PM EMBROIDERER HAND 09/19/2023 12:45 PM EMBROIDERER HAND Radha Iqbal M.D. LAB BLOOD NON ADD-ON [facility] [address] [place] [address], [facility] STMA [facility] [address] [place] [address] * (ABNORMAL) Platelet Count (09/19/2023 12:44 PM EMBROIDERER HAND) Pathologist [facility] Platelet Count 62(L) 135 - 317 x10(9)/L 09/19/2023 12:51 PM EMBROIDERER HAND [facility] Blood (Blood, Arterial Line) 09/19/2023 12:44 PM EMBROIDERER HAND 09/19/2023 12:44 PM EMBROIDERER HAND Radha Iqbal M.D. LAB BLOOD ADD-ON [facility] [address] [place] [address], [facility] [address] [place] [address] * (ABNORMAL) Prothrombin Time (PT) (09/19/2023 12:44 PM EMBROIDERER HAND) Prothrombin Time, P 18.5(H) 9.4 - 12.5 sec 09/19/2023 1:00 PM EMBROIDERER HAND [facility] INR 1.7 0.9 - 1.1 09/19/2023 1:00 PM EMBROIDERER HAND [facility] Comment: ----ADDITIONAL INFORMATION---- Standard intensity warfarin therapeutic range: 2.0 to 3.0 ?? High intensity warfarin therapeutic range: 2.5 to 3.5 Blood (Blood, Arterial Line) 09/19/2023 12:44 PM EMBROIDERER HAND 09/19/2023 12:44 PM EMBROIDERER HAND Radha Iqbal M.D. LAB BLOOD ADD-ON Performing Organization Address City/[facility]/ZIP Co de Phone Number [facility] [address] [place] [address], [facility] 200 [place] [address] * (ABNORMAL) Fibrinogen (09/19/2023 12:44 PM EMBROIDERER HAND) Pathologist [facility] Fibrinogen, P 195(L) 200 - 393 mg/dL 09/19/2023 12:59 PM EMBROIDERER HAND [facility] Blood (Blood, Arterial Line) 09/19/2023 12:44 PM EMBROIDERER HAND 09/19/2023 12:44 PM EMBROIDERER HAND Radha Iqbal M.D. LAB BLOOD ADD-ON [facility] [address] [place] [address], [facility] [address] [place] [address] * (ABNORMAL) APTT (Activated Partial Thromboplastin Time) (09/19/2023 12:44 PM EMBROIDERER HAND) Pathologist [facility] Activated Partial Thrombopl Time, P 40(H) 25 - 37 sec 09/19/2023 1:01 PM EMBROIDERER HAND [facility] Blood (Blood, Arterial Line) 09/19/2023 12:44 PM EMBROIDERER HAND 09/19/2023 12:44 PM EMBROIDERER HAND Radha Iqbal M.D. LAB BLOOD ADD-ON [facility] [address] [place] [address], [facility] [address] [place] [address] * ACT (Activated Clotting Time), POCT (09/19/2023 12:42 PM EMBROIDERER HAND) [facility] Activated Clotting Time 126 82 - 152 sec 09/19/2023 12:45 PM EMBROIDERER HAND PCLX 09/19/2023 12:4 2 PM EMBROIDERER HAND 09/19/2023 12:45 PM EMBROIDERER HAND Unknown Provider LAB POCT ORDERABLES - DEVICE Performing Organization Address City/[facility]/ZIP Co de Phone Number POC [facility] [address] [place] [address], [facility] PCLX [facility] P[facility] [address] [place] [address] * (ABNORMAL) Hemoglobin (HGB), POCT (09/19/2023 12:17 PM EMBROIDERER HAND) Pathologist [facility] Hemoglobin, POCT, B 8.7(L) 13.2 - 16.6 g/dL 09/19/2023 12:23 PM EMBROIDERER HAND PCSM Blood 09/19/2023 12:1 7 PM EMBROIDERER HAND 09/19/2023 12:23 PM EMBROIDERER HAND Unknown Provider LAB POCT ORDERABLES - DEVICE Performing Organization Address City/[facility]/ZIP Co de Phone Number POC [facility] [address] [place] [address], [facility] PCSM [facility] POC [address] [place] [address] * (ABNORMAL) ACT (Activated Clotting Time), POCT (09/19/2023 12:01 PM EMBROIDERER HAND) Pathologist [facility] Activated Clotting Time 668(H) 82 - 152 sec 09/19/2023 12:18 PM EMBROIDERER HAND PCLX 09/19/2023 12:0 1 PM EMBROIDERER HAND 09/19/2023 12:18 PM EMBROIDERER HAND Unknown Provider LAB POCT ORDERABLES - DEVICE Performing Organization Address City/[facility]/ZIP Co de Phone Number POC [facility] [address] [place] [address], [facility] PCLX [facility] POC [address] [place] [address] * (ABNORMAL) Glucose, POCT (09/19/2023 12:00 PM EMBROIDERER HAND) Pathologist [facility] Glucose, POCT, B 150(H) 70 - 140 mg/dL 09/19/2023 12:01 PM EMBROIDERER HAND PCSM Site [facility] 09/19/2023 12:01 PM EMBROIDERER HAND PCSM Blood 09/19/2023 12:0 0 PM EMBROIDERER HAND 09/19/2023 12:01 PM EMBROIDERER HAND Unknown Provider LAB POCT ORDERABLES- MANUAL Performing Organization Address City/[facility]/ZIP Co de Phone Number POC RST [facility] [address] [place] [address], [facility] [address] [place] [address] * Surgical Pathology, Frozen Lab (09/19/2023 11:34 AM EMBROIDERER HAND) 09/25/2023 10:47 AM EMBROIDERER HAND STMA Participated in the Interpretation Amber Gutierrez M.D. -Pathology Resident 09/25/2023 10:47 AM EMBROIDERER HAND STMA Report electronically signed by Zohreh De La Cruz M.D. I verify that I have examined all relevant slides/materials for the specimen(s) and rendered or confirmed the diagnosis. 09/25/2023 10:47 AM EMBROIDERER HAND STMA Gross Description A. ??Received fresh labeled with the patient's name, medical record number, and designated as heart, left atrial appendage. ??It consists of a 2.6 x 2.4 x 1.3 cm atrial appendage without mural thrombus. ??Fish Tender sections are submitted for microscopy in cassette A1. ??Grossed by Teresa Qureshi M.S., GEORGE([facility]). B. ??Received fresh labeled with the [...] up to 0.2 cm in greatest size. ??Fish Tender sections are submitted for microscopy in cassette B1, following decalcification. Grossed by Teresa Qureshi M.S., PA([facility]). 09/25/2023 10:47 AM EMBROIDERER HAND STMA Block Summary A Heart, left atrial appendage A1 B Heart, aortic valve B1 09/25/2023 10:47 AM EMBROIDERER HAND STMA Interpretation FINAL DIAGNOSIS A. ??Heart, left atrial appendage, excision: Mild myocyte hypertrophy and mild interstitial fibrosis, without mural thrombus. B. ??Heart, aortic valve, excision: ? 1. ??Degenerative fibrocalcific aortic valve disease, with moderate calcification ?(evaluated with Verhoeff-Van Gieson stain on block B1). ? 2. ??History of severe aortic stenosis and trivial aortic regurgitation. Diagnosis was made via digital imaging. 09/25/2023 10:47 AM EMBROIDERER HAND STMA Tissue (Heart, Atrium) 09/19/2023 11:34 AM EMBROIDERER HAND Tissue (Heart Valve, Aortic) 09/19/2023 11:34 AM EMBROIDERER HAND Sarah Miller M.D., M.P.H. LAB SURG PATH ORDERABLES [facility] [address] [place] [address], [facility] STMA [address] [facility] 200 [place] [address] * Transfuse autologous RBC (Cell Salvage) : (09/19/2023 11:33 AM EMBROIDERER HAND) Radha Iqbal M.D. BLOOD TRANSFUSION OR DERABLES * (ABNORMAL) ACT (Activated Clotting Time), POCT (09/19/2023 11:28 AM EMBROIDERER HAND) Activated Clotting Time 587(H) 82 - 152 sec 09/19/2023 11:43 AM EMBROIDERER HAND PCLX 09/19/2023 11:2 8 AM EMBROIDERER HAND 09/19/2023 11:43 AM EMBROIDERER HAND Unknown Provider LAB POCT ORDERABLES - DEVICE Performing Organization Address City/[facility]/ZIP Co de Phone Number [facility] LAB SERVICES [address] [place] [address], [facility] PCLX [facility] POC 200 [place] [address] * (ABNORMAL) ACT (Activated Clotting Time), POCT (09/19/2023 10:55 AM EMBROIDERER HAND) Activated Clotting Time 631(H) 82 - 152 sec 09/19/2023 11:05 AM EMBROIDERER HAND PCLX 09/19/2023 10:5 5 AM EMBROIDERER HAND 09/19/2023 11:05 AM EMBROIDERER HAND Unknown Provider LAB POCT ORDERABLES - DEVICE [facility] LAB SERVICES [address] [place] [address], [facility] PCLX [facility] POC [address] [place] [address] * (ABNORMAL) ACT (Activated Clotting Time), POCT (09/19/2023 10:24 AM EMBROIDERER HAND) Activated Clotting Time 747(H) 82 - 152 sec 09/19/2023 10:37 AM EMBROIDERER HAND PCLX 09/19/2023 10:2 4 AM EMBROIDERER HAND 09/19/2023 10:37 AM EMBROIDERER HAND Unknown Provider LAB POCT ORDERABLES - DEVICE Performing Organization Address City/[facility]/ZIP Co de Phone Number POC [facility] LAB SERVICES [address] [place] [address], [facility] PCLX [facility] POC [address] [place] [address] * (ABNORMAL) Glucose, POCT (09/19/2023 10:23 AM EMBROIDERER HAND) Glucose, POCT, B 148(H) 70 - 140 mg/dL 09/19/2023 10:24 AM EMBROIDERER HAND PCS Site ARTLINE 09/19/2023 10:24 AM EMBROIDERER HAND [facility] Blood 09/19/2023 10:2 3 AM EMBROIDERER HAND 09/19/2023 10:24 AM EMBROIDERER HAND Unknown Provider LAB POCT ORDERABLES- MANUAL Performing Organization Address City/[facility]/ZIP Co de Phone Number POC [facility] INPATIENT LABS [address] [place] [address], [facility] PCSM [facility] POC [address] [place] [address] * Transfuse Red Blood Cells : (09/19/2023 10:13 AM EMBROIDERER HAND) Radha Iqbal M.D. BLOOD TRANSFUSION OR DERABLES * (EDMUNDO) - INTRAOPERATIVE WITH COLOR AND LIMITED DOPPLER (PROBE NOT PLACED) (09/19/2023 9:56 AM EMBROIDERER HAND) Ejection Fraction [facility] Anatomical Region Laterality Modality Echocardiography 09/19/2023 6:43 AM EMBROIDERER HAND Impressions 09/19/2023 1:45 PM EMBROIDERER HAND PROCEDURE:Transesophageal echocardiogram performed at the request of the primary emergency medical services coordinator. Transesophageal echocardiogram completed without complications. PRE-BYPASS:Pre-bypass left [...] the Order-Level Documents. Narrative 09/19/2023 1:45 PM EMBROIDERER HAND For the complete report, see the Order-Level [...] PROCEDURE:Transesophageal echocardiogram performed at the request of themnimary emergency medical services coordinator. Transesophageal echocardiogram completedwithout complications. PRE-BYPASS:Pre-bypass left ventricular [...] (Activated Clotting Time), POCT (09/19/2023 9:51 AM EMBROIDERER HAND) Pathologist [facility] Activated Clotting Time 910(H) 82 - 152 sec 09/19/2023 10:04 AM EMBROIDERER HAND PCLX 09/19/2023 9:51 AM EMBROIDERER HAND 09/19/2023 10:04 AM EMBROIDERER HAND Unknown Provider LAB POCT ORDERABLES - DEVICE POC [facility] LAB SERVICES [address] [place] [address], [facility] PCLX [facility] POC [address] [place] [address] * Glucose, Whole Blood (09/19/2023 9:51 AM EMBROIDERER HAND) Pathologist [facility] Glucose 126 70 - 140 mg/dL 09/19/2023 9:53 AM EMBROIDERER HAND STMA Blood (Blood, Arterial Line) 09/19/2023 9:51 AM EMBROIDERER HAND 09/19/2023 9:51 AM EMBROIDERER HAND Sarah Miller M.D., M.P.H. LAB BLOOD ADD -ON [facility] 200 [place], [place] [id number] [place] [address] 200 [place] [address] * Potassium, Blood (09/19/2023 9:51 AM EMBROIDERER HAND) Potassium, B 4.1 3.6 - 5.2 mmol/L 09/19/2023 9:53 AM EM[facility]OIDERER HAND [facility] Blood (Blood, Arterial Line) 09/19/2023 9:51 AM EMBROIDERER HAND 09/19/2023 9:51 AM EMBROIDERER HAND Sarah Miller M.D., M.P.H. LAB BLOOD NON ADD-ON Performing Organization Address City/[facility] Co de Phone Number [facility] 200 [place], [place] [id number] [place] [address] 200 [place] [address] * Sodium, B (09/19/2023 9:51 AM EMBROIDERER HAND) Sodium, B 143 135 - 145 mmol/L 09/19/2023 9:53 AM EMBROIDERER HAND [facility] Blood (Blood, Arterial Line) 09/19/2023 9:51 AM EMBROIDERER HAND 09/19/2023 9:51 AM EMBROIDERER HAND Sarah Miller M.D., M.P.H. LAB BLOOD NON ADD-ON Performing Organization Address City/[facility]/ZIP Co de Phone Number [facility] [address] 200 [place] [address] * (ABNORMAL) Calcium, Ionized (09/19/2023 9:51 AM EMBROIDERER HAND) Calcium, Ionized, B 3.99(L) 4.65 - 5.30 mg/dL 09/19/2023 9:53 AM EMBROIDERER HAND STMA Blood (Blood, Arterial Line) 09/19/2023 9:51 AM EMBROIDERER HAND 09/19/2023 9:51 AM EMBROIDERER HAND Sarah Miller M.D., M.P.H. LAB BLOOD NON ADD-ON Performing Organization Address City/[facility] Co de Phone Number [facility] [address] [place] [address], [facility] STMA [facility] 200 [place] [address] * (ABNORMAL) Blood Gas with Coox, Arterial (09/19/2023 9:51 AM EMBROIDERER HAND) pO2 339(H) 83 - 108 mm Hg 09/19/2023 9:53 AM EMBROIDERER HAND STMA pCO2 38 35 - 48 mm Hg 09/19/2023 9:53 AM EMBROIDERER HAND STMA pH 7.45 7.35 - 7.45 pH 09/19/2023 9:53 AM EMBROIDERER HAND STMA Base Excess 2 -2 - 3 mmol/L 09/19/2023 9:53 AM EMBROIDERER HAND STMA HCO3 26 22 - 26 mmol/L 09/19/2023 9:53 AM EMBROIDERER HAND STMA Hemoglobin, Venous 8.1(L) 13.2 - 16.6 g/dL 09/19/2023 9:53 AM EMBROIDERER HAND STMA O2Hb 99.1(H) 94.0 - 98.0 % 09/19/2023 9:53 AM EMBROIDERER HAND STMA COHb 1.2 <3.0 % 09/19/2023 9:53 AM EMBROIDERER HAND STMA MetHb <1.0 <1.5 % 09/19/2023 9:53 AM EMBROIDERER HAND STMA CtO2 12.2(L) 18.0 - 21.0 vol % 09/19/2023 9:53 AM EMBROIDERER HAND STMA Blood (Blood, Arterial Line) 09/19/2023 9:51 AM EMBROIDERER HAND 09/19/2023 9:51 AM EMBROIDERER HAND Sarah Miller M.D., M.P.H. LAB BLOOD NON ADD-ON Performing Organization Address City/[facility]/ZIP Co de Phone Number [facility] [address] [place] [address], [facility] STMA [facility] 200 [place] [address] * (ABNORMAL) ACT (Activated Clotting Time), POCT (09/19/2023 9:26 AM EMBROIDERER HAND) Activated Clotting Time 868(H) 82 - 152 sec 09/19/2023 9:37 AM EMBROIDERER HAND PCLX 09/19/2023 9:26 AM EMBROIDERER HAND 09/19/2023 9:37 AM EMBROIDERER HAND Unknown Provider LAB POCT ORDERABLES - DEVICE Performing Organization Address [facility] Co de Phone Number POC [facility] LAB SERVICES [address] [place] [address], [facility] PCLX [facility] POC [address] [place] [address] * (ABNORMAL) Hemoglobin (HGB), POCT (09/19/2023 9:24 AM EMBROIDERER HAND) Hemoglobin, POCT, B 9.8(L) 13.2 - 16.6 g/dL 09/19/2023 9:31 AM EMBROIDERER HAND PCSM Blood 09/19/2023 9:24 AM EMBROIDERER HAND 09/19/2023 9:31 AM EMBROIDERER HAND Unknown Provider LAB POCT ORDERABLES - DEVICE Performing Organization Address City/[facility]/ZIP Co de Phone Number POC [facility] IN[facility] [address] [place] [address], [facility] PCSM [facility] POC [address] [place] [address] * Lactate, B - Intra-op (09/19/2023 8:25 AM EMBROIDERER HAND) Lactate, B 0.9 0.5 - 2.2 mmol/L 09/19/2023 8:28 AM EMBROIDERER HAND STMA Blood (Blood, Venous) 09/19/2023 8:25 AM EMBROIDERER HAND 09/19/2023 8:25 AM EMBROIDERER HAND Radha Iqbal M.D. LAB BLOOD NON ADD-ON [facility] 200 [place], [place] [phone] [place] [address] 200 [place] [address] * Glucose, Whole Blood (09/19/2023 8:25 AM EMBROIDERER HAND) Glucose 133 70 - 140 mg/dL 09/19/2023 8:28 AM EMBROIDERER HAND [facility] Blood (Blood, Arterial Line) 09/19/2023 8:25 AM EMBROIDERER HAND 09/19/2023 8:25 AM EMBROIDERER HAND Radha Iqbal M.D. LAB BLOOD ADD-ON [facility] 200 [place], [place] [phone] [place] [address] 200 [place] [address] * Potassium, Blood (09/19/2023 8:25 AM EMBROIDERER HAND) Potassium, B 3.8 3.6 - 5.2 mmol/L 09/19/2023 8:28 AM EMBROIDERER HAND STMA Blood (Blood, Arterial Line) 09/19/2023 8:25 AM EMBROIDERER HAND 09/19/2023 8:25 AM EMBROIDERER HAND Radha Iqbal M.D. LAB BLOOD NON ADD-ON [facility] 200 [place], [place] [phone] [place] [address] 200 [place] [address] * Sodium, B (09/19/2023 8:25 AM EMBROIDERER HAND) Sodium, B 143 135 - 145 mmol/L 09/19/2023 8:28 AM EMBROIDERER HAND STMA Blood (Blood, Arterial Line) 09/19/2023 8:25 AM EMBROIDERER HAND 09/19/2023 8:25 AM EMBROIDERER HAND Radha Iqbal M.D. LAB BLOOD NON ADD-ON [facility] 200 [place], [place] [phone] [place] [address] 200 [place] [address] * (ABNORMAL) Calcium, Ionized (09/19/2023 8:25 AM EMBROIDERER HAND) Calcium, Ionized, B 4.50(L) 4.65 - 5.30 mg/dL 09/19/2023 8:28 AM EMBROIDERER HAND STMA Blood (Blood, Arterial Line) 09/19/2023 8:25 AM EMBROIDERER HAND 09/19/2023 8:25 AM EMBROIDERER HAND Radha Iqbal M.D. LAB BLOOD NON ADD-ON Performing Organization Address City/[facility] Co de Phone Number [facility] 200 [place] [address], [facility] 200 [place] [address] * (ABNORMAL) Blood Gas with Coox, Arterial (09/19/2023 8:25 AM EMBROIDERER HAND) pO2 421(H) 83 - 108 mm Hg 09/19/2023 8:28 AM EMBROIDERER HAND STMA pCO2 40 35 - 48 mm Hg 09/19/2023 8:28 AM EMBROIDERER HAND STMA pH 7.42 7.35 - 7.45 pH 09/19/2023 8:28 AM EMBROIDERER HAND STMA Base Excess 1 -2 - 3 mmol/L 09/19/2023 8:28 AM EMBROIDERER HAND STMA HCO3 26 22 - 26 mmol/L 09/19/2023 8:28 AM EMBROIDERER HAND STMA Hemoglobin, Venous 9.8(L) 13.2 - 16.6 g/dL 09/19/2023 8:28 AM EMBROIDERER HAND STMA O2Hb 98.6(H) 94.0 - 98.0 % 09/19/2023 8:28 AM EMBROIDERER HAND STMA COHb 1.0 <3.0 % 09/19/2023 8:28 AM EMBROIDERER HAND STMA MetHb <1.0 <1.5 % 09/19/2023 8:28 AM EMBROIDERER HAND STMA CtO2 14.7(L) 18.0 - 21.0 vol % 09/19/2023 8:28 AM EMBROIDERER HAND STMA Blood (Blood, Arterial Line) 09/19/2023 8:25 AM EMBROIDERER HAND 09/19/2023 8:25 AM EMBROIDERER HAND Radha Iqbal M.D. LAB BLOOD NON ADD-ON [facility] [address] [place] [address], [facility] STMA [facility] [address] [place] [address] * ACT (Activated Clotting Time), POCT (09/19/2023 8:24 AM EMBROIDERER HAND) Activated Clotting Time 132 82 - 152 sec 09/19/2023 8:27 AM EMBROIDERER HAND PCLX 09/19/2023 8:24 AM EMBROIDERER HAND 09/19/2023 8:27 AM EMBROIDERER HAND Unknown Provider LAB POCT ORDERABLES - DEVICE Performing Organization Address [facility] Co de Phone Number POC [facility] LAB SERVICES [address] [place] [address], [facility] PCLX [facility] [address] [place] [address] documented in this encounter Visit Diagnoses Diagnosis [...] Injury) (HCC) Hyperkalemia Acidosis Lactic 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 Therapy Integrated Campaign Manager Antiplatelet Thrombocytopenia Secondary Hemiplegia Dominant Side Right [...] Sun09/21/23 at 1800 Given 09/26/2023 11:39 AM EMBROIDERER HAND 1,000 mg Given 09/26/2023 6:59 AM EMBROIDERER HAND 1,000 mg Given 09/26/2023 12:55 AM EMBROIDERER HAND 1,000 mg acetaminophen tablet 650 mg (TYLENOL) 650 mg, oral, Every 6 hours, First dose on Sun09/19/23 at 1800, For 48 hours Given 09/21/2023 11:25 AM EMBROIDERER HAND 650 mg Given 09/21/2023 5:21 AM EMBROIDERER HAND 650 mg Given 09/20/2023 11:13 PM EMBROIDERER HAND 650 mg albumin human 25 % injection 100 mL 100 mL, intravenous, at 100 mL/hr, Administer over 60 Minutes, Once, On 09/22/23 at 2330, For 1 dose, Infuse over 1 hour. New Bag 09/22/2023 11:29 PM EMBROIDERER HAND 100 mL 100 mL/hr albumin human 25 % injection 25 g 25 g, intravenous, Once, On Sun09/23/23 at 1030, For 1 dose, If no infusion rate specified: Administer the 25% solution at 100 mL/hr New Bag 09/23/2023 10:57 AM EMBROIDERER HAND 25 g albuterol nebulizer solution 2.5 mg 2.5 mg, nebulization, Every 4 hours PRN, wheezing, Starting on Sun09/19/23 at 1707 amiodarone tablet 200 mg (PACERONE) 200 mg, oral, 2 times daily, First dose on Sun09/26/23 at 0900, For 4 days Given 09/26/2023 7:57 AM EMBROIDERER HAND 200 mg amiodarone tablet 200 mg (PACERONE) 200 mg, oral, Daily, First dose on Sun09/30/23 at 0900, For 30 days amiodarone tablet 400 mg (PACERONE) 400 mg, oral, 2 times daily, First dose on 09/22/23 at 1245, For 4 days Given 09/25/2023 8:17 PM EMBROIDERER HAND 400 mg Given 09/25/2023 8:04 AM EMBROIDERER HAND 400 mg Given 09/24/2023 8:33 PM EMBROIDERER HAND 400 mg aspirin chewable tablet 81 mg 81 mg, oral, Daily, First dose on Carissa 09/20/23 at 0900 Given 09/26/2023 8:00 AM EMBROIDERER HAND 81 mg Given 09/25/2023 8:04 AM EMBROIDERER HAND 81 mg Given 09/24/2023 8:39 AM EMBROIDERER HAND 81 mg atorvastatin tablet 80 mg (LIPITOR) 80 mg, oral, Daily at bedtime, First dose on Sun09/19/23 at 2100 Given 09/25/2023 8:17 PM EMBROIDERER HAND 80 mg Given 09/24/2023 8:34 PM EMBROIDERER HAND 80 mg Given 09/23/2023 9:57 PM EMBROIDERER HAND 80 mg baclofen tablet 2.5 mg (LIORESAL) 2.5 mg, oral, Once as needed, muscle spasms, hiccups, Starting on 09/23/23 at 1638, For 1 dose Given 09/23/2023 9:57 PM EMBROIDERER HAND 2.5 mg baclofen tablet 2.5 mg (LIORESAL) 2.5 mg, oral, 3 times daily PRN, muscle spasms, hiccups, Starting on 09/24/23 at 0950 Given 09/24/2023 3:45 PM EMBROIDERER HAND 2.5 mg benzocaine-menthoL 15-3.6 mg per lozenge [...] Prophylaxis, surgical New Bag 09/20/2023 11:13 PM EMBROIDERER HAND 2 g 200 mL/h r New Bag 09/20/2023 2:59 PM EMBROIDERER HAND 2 g 200 mL/hr New Bag 09/20/2023 6:30 AM EMBROIDERER HAND 2 g 200 mL/hr clevidipine 0.5 mg/mL [...] 5-15 min. Rate/Dose Change 09/20/2023 10:16 PM EMBROIDERER HAND 2 mg/hr 4 mL/hr Rate/Dose Change 09/20/2023 10:09 PM EMBROIDERER HAND 3 mg/hr 6 mL/h r Rate/Dose Verify 09/20/2023 9:00 PM EMBROIDERER HAND 2 mg/hr 4 mL/hr EPINEPHrine 16 mcg/mL in NaCl 0.9% mL 250 mL infusion (ADRENALIN) 0.01 mcg/kg/min ? 85.8 kg Dosing weight (3.2175 mL/hr, rounded to 3.22 mL/hr), intravenous, Continuous, Starting on Sun09/19/23 at 1745, Protect from light and avoid extravasation, Patient Type: Do Not Titrate Rate/Dose Verify 09/19/2023 8:00 PM EMBROIDERER HAND 0.01 mcg/kg/min 3.22 mL/hr Rate/Dose Change 09/19/2023 7:07 PM EMBROIDERER HAND 0.01 mcg/kg/min 3. 22 mL/hr Rate/Dose Verify 09/19/2023 7:00 PM EMBROIDERER HAND 0.02 mcg/kg/min 6. 44 mL/hr finasteride tablet 5 mg (PROSCAR) 5 mg, oral, Daily, First dose on Sun09/21/23 at 0900, Hold with indwelling urinary catheter See tube feeding guidelines for tube feeding administration instructions. Given 09/26/2023 8:00 AM EMBROIDERER HAND 5 mg Given 09/25/2023 8:07 AM EMBROIDERER HAND 5 mg Given 09/24/2023 8:39 AM EMBROIDERER HAND 5 mg furosemide injection 20 mg (LASIX) 20 mg, intravenous, Once, On Carissa 09/20/23 at 0845, For 1 dose, Adults: Doses less than 120 mg: IV push over 20 mg/minute. Doses 120 mg or greater: IVPB at 4 mg/minute. Peds/Neonates: Doses less than 120 mg over 0.5 mg/kg/minute. Doses 120 mg or greater: IVPB at 4 mg/minute. Given 09/20/2023 8:41 AM EMBROIDERER HAND 20 mg furosemide injection 20 mg (LASIX) 20 mg, intravenous, 2 times daily, First dose on 09/24/23 at 0945, Adults: Doses less than 120 mg: IV push over 20 mg/minute. Doses 120 mg or greater: IVPB at 4 mg/minute. Peds/Neonates: Doses less than 120 mg over 0.5 mg/kg/minute. Doses 120 mg or greater: IVPB at 4 mg/minute. Given 09/24/2023 10:23 AM EMBROIDERER HAND 20 mg furosemide injection 40 mg (LASIX) 40 mg, intravenous, Once, On Carissa 09/20/23 at 1345, For 1 dose, Adults: Doses less than 120 mg: IV push over 20 mg/minute. Doses 120 mg or greater: IVPB at 4 mg/minute. Peds/Neonates: Doses less than 120 mg over 0.5 mg/kg/minute. Doses 120 mg or greater: IVPB at 4 mg/minute. Given 09/20/2023 1:31 PM EMBROIDERER HAND 40 mg furosemide injection 40 mg (LASIX) 40 mg, intravenous, Once, On Carissa 09/20/23 at 1800, For 1 dose, Adults: Doses less than 120 mg: IV push over 20 mg/minute. Doses 120 mg or greater: IVPB at 4 mg/minute. Peds/Neonates: Doses less than 120 mg over 0.5 mg/kg/minute. Doses 120 mg or greater: IVPB at 4 mg/minute. Given 09/20/2023 6:00 PM EMBROIDERER HAND 40 mg furosemide injection 40 mg (LASIX) 40 mg, intravenous, Every 12 hours, First dose on Sun09/21/23 at 0500, Adults: Doses less than 120 mg: IV push over 20 mg/minute. Doses 120 mg or greater: IVPB at 4 mg/minute. Peds/Neonates: Doses less than 120 mg over 0.5 mg/kg/minute. Doses 120 mg or greater: IVPB at 4 mg/minute. Given 09/21/2023 5:20 AM EMBROIDERER HAND 40 mg furosemide injection 40 mg (LASIX) [...] at 4 mg/minute. Given 09/22/2023 9:39 AM EMBROIDERER HAND 40 mg Given 09/21/2023 8:36 AM EMBROIDERER HAND 40 mg furosemide injection 40 mg (LASIX) [...] at 4 mg/minute. Given 09/25/2023 8:03 AM EMBROIDERER HAND 40 mg Given 09/24/2023 3:45 PM EMBROIDERER HAND 40 mg furosemide tablet 20 mg (LASIX) 20 mg, oral, Daily, First dose on Sun09/26/23 at 0900 Given 09/26/2023 8:01 AM EMBROIDERER HAND 20 mg furosemide tablet 40 mg (LASIX) 40 mg, oral, 2 times daily, First dose on 09/22/23 at 1700, On hold since 09/23/2023 at 1529 until manually unheld Given 09/23/2023 8:55 AM EMBROIDERER HAND 40 mg Given 09/22/2023 5:36 PM EMBROIDERER HAND 40 mg heparin (porcine) injection 5,000 Units 5,000 Units, subcutaneous, Every 8 hours scheduled, First dose on Carissa 23 at 0600 Given 09/23/2023 2:20 PM EMBROIDERER HAND 5,000 Units Left Upper Arm (Back ) Given 09/23/2023 6:04 AM EMBROIDERER HAND 5,000 Units L eft Upper Arm (Back) Given 09/22/2023 9:42 PM EMBROIDERER HAND 5,000 Units R ight Upper Arm (Back) [...] writing Insulin orders Given 09/26/2023 11:39 AM EMBROIDERER HAND 4 Units Left Upper Arm (Back ) Given 09/26/2023 7:59 AM EMBROIDERER HAND 2 Units Le ft Upper Arm (Back) Given 09/25/2023 5:42 PM EMBROIDERER HAND 4 Units Le ft Upper Arm (Back) [...] Factor: 0.03 Rate/Dose Change 09/20/2023 1:18 AM EMBROIDERER HAND 0 Units/hr 0 mL/hr Rate/Dose Change 09/20/2023 12:02 AM EMBROIDERER HAND 0 Units/hr 0 mL/h r Rate/Dose Verify 09/20/2023 12:01 AM EMBROIDERER HAND 3.5 Units/hr 3.5 mL/hr ipratropium-albuteroL 0.5-2.5 mg/3 mL nebulizer solution 3 mL (DUONEB) 3 mL, nebulization, 3 times daily, First dose on 09/24/23 at 1015 Given 09/25/2023 8:05 AM EMBROIDERER HAND 3 mL Given 09/24/2023 8:34 PM EMBROIDERER HAND 3 mL Given 09/24/2023 10:23 AM EMBROIDERER HAND 3 mL Lactated Ringer's bolus 250 mL 250 mL, intravenous, at 250 mL/hr, Administer over 1 Hours, Once, On Carissa 09/20/23 at 0530, For 1 dose New Bag 09/20/2023 5:29 AM EMBROIDERER HAND 250 mL 250 mL/hr Lactated Ringer's 0-20 mL/hr, intravenous, Continuous, Starting on Sun09/19/23 at 1730 Rate/Dose Change 09/21/2023 7:02 AM EMBROIDERER HAND 0 mL/hr 0 mL/hr Rate/Dose Verify 09/20/2023 7:00 AM EMBROIDERER HAND 20 mL/hr 20 mL/h r Rate/Dose Verify 09/20/2023 6:00 AM EMBROIDERER HAND 20 mL/hr 20 mL/h r lactulose solution [...] 12 hours Medication Applied 09/20/2023 1:42 AM EMBROIDERER HAND 1 patch Chest magnesium sulfate in water IVPB 2 g 2 g, intravenous, at 25 mL/hr, Administer over 120 Minutes, Once, On Sun09/19/23 at 1730, For 1 dose New Bag 09/19/2023 5:47 PM EMBROIDERER HAND 2 g 25 mL/hr melatonin tablet 10 mg 10 mg, oral, Bedtime PRN, sleep, Starting on Carissa 09/20/23 at 2007 Given 09/20/2023 8:44 PM EMBROIDERER HAND 10 mg metoclopramide tablet 5 mg (REGLAN) 5 mg, oral, Every 8 hours PRN, hiccups, Starting on Sun09/25/23 at 1053 metoprolol tablet 12.5 mg (LOPRESSOR) 12.5 mg, oral, 2 times daily, First dose on Sun09/20/23 at 0945 Given 09/20/2023 9:41 AM EMBROIDERER HAND 12.5 mg metoprolol tartrate tablet 25 mg (LOPRESSOR) 25 mg, oral, 2 times daily, First dose (after last modification) on Sun09/20/23 at 2100 Given 09/26/2023 8:00 AM EMBROIDERER HAND 25 mg Given 09/25/2023 8:17 PM EMBROIDERER HAND 25 mg Given 09/25/2023 8:04 AM EMBROIDERER HAND 25 mg mupirocin 2 % ointment 1 Application (BACTROBAN) 1 Application, each nostril, 2 times daily, First dose on Sun09/19/23 at 2100, For 6 doses, Instill 0.5 gram (1 application) into each nostril. Massage nares for one minute after instilling the ointment. If patient has completed a 5 day course prior to surgery, discontinue mupirocin. Given 09/22/2023 9:39 AM EMBROIDERER HAND 1 Applicatio n Given 09/21/2023 8:28 PM EMBROIDERER HAND 1 Application Given 09/21/2023 8:37 AM EMBROIDERER HAND 1 Application NaCl 0.9% infusion 3-9 mL/hr, intravenous, Continuous, Starting on Sun09/19/23 at 1930, Hemodynamic Monitoring Lines: catheter lumen of central venous catheter (CVC) and Arterial lines for Intensive Care Units (ICU), Progressive Care Unit (PCU) and Telemetry units. Rate/Dose Verify 09/21/2023 9:00 AM EMBROIDERER HAND 3 mL/hr 3 mL/hr Rate/Dose Verify 09/21/2023 8:00 AM EMBROIDERER HAND 3 mL/hr 3 mL/hr Rate/Dose Verify 09/21/2023 7:00 AM EMBROIDERER HAND 3 mL/hr 3 mL/hr naloxone injection 0.2 [...] MAP >65 Rate/Dose Verify 09/19/2023 7:00 PM EMBROIDERER HAND 0.01 mcg/kg/min 3.22 mL/hr Rate/Dose Change 09/19/2023 6:34 PM EMBROIDERER HAND 0.01 mcg/kg/min 3. 22 mL/hr Rate/Dose Change 09/19/2023 6:04 PM EMBROIDERER HAND 0.03 mcg/kg/min 9. 65 mL/hr oxyCODONE IR tablet 10 mg (ROXICODONE) 10 mg, oral, Every 4 hours PRN, severe pain or score 7-10 of 10, Starting on Sun09/19/23 at 1707, Patient is able to take oral medications. Given 09/20/2023 1:42 AM [facility] 10 mg oxyCODONE IR tablet 5 mg [...] or split tablet. Given 09/26/2023 6:59 AM [facility] 40 mg Given 09/25/2023 6:54 AM [facility] 40 mg Given 09/24/2023 5:23 AM [facility] 40 mg polyethylene glycol powder packet 17 g (MIRALAX) 17 g, oral, Daily, First dose (after last modification) on [facility] 09/20/23 at 0900, If no bowel movement for 48 hours. Hold for loose stool. Avoid mixing with starch-based thickened liquids. Given 09/20/2023 8:02 AM [facility] 17 g polyethylene glycol powder packet 17 g (MIRALAX) 17 g, oral, 2 times daily, First dose (after last modification) on [facility] 09/20/23 at 2100, If no bowel movement for 48 hours. Hold for loose stool. Avoid mixing with starch-based thickened liquids. Given 09/22/2023 9:39 AM [facility] 17 g Given 09/21/2023 8:28 PM [facility] 17 g Given 09/21/2023 8:36 AM [facility] 17 g polyethylene glycol powder packet 17 [...] RASS goal New Bag 09/19/2023 6:37 PM EMBROIDERER HAND 40 mcg/kg/min 20.6 mL/hr Rate/Dose Verify 09/19/2023 6:00 PM EMBROIDERER HAND 40 mcg/kg/min 20.6 mL/hr New Bag 09/19/2023 5:37 PM EMBROIDERER HAND 40 mcg/kg/min 20.6 mL/hr rOPINIRole tablet 0.5 mg (REQUIP) 0.5 mg, oral, 3 times daily, First dose (after last modification) on [facility] 09/20/23 at 1400, For restless legs Given 09/26/2023 1:19 PM EMBROIDERER HAND 0.5 mg Given 09/26/2023 7:58 AM EMBROIDERER HAND 0.5 mg Given 09/25/2023 8:17 PM EMBROIDERER HAND 0.5 mg sennosides-docusate sodium 8.6-50 mg per tablet 2 tablet (SENOKOT-S) 2 tablet, oral, 2 times daily, First dose on Sun09/19/23 at 2100, Hold for loose stool Given 09/23/2023 8:54 AM EMBROIDERER HAND 2 tablets Given 09/22/2023 9:39 AM EMBROIDERER HAND 2 tablets Given 09/21/2023 8:28 PM EMBROIDERER HAND 2 tablets sennosides-docusate sodium 8.6-50 mg per tablet 2 tablet (SENOKOT-S) 2 tablet, oral, Daily at bedtime, First dose (after last modification) on Sun09/24/23 at 2100, Hold for loose stool simethicone chewable tablet 125 mg (MYLICON) 125 mg, oral, Every 6 hours PRN, flatulence, Starting on Sun09/19/23 at 1707 Given 09/20/2023 8:03 AM EMBROIDERER HAND 125 mg sodium bicarbonate injection 100 mEq 100 mEq, intravenous, Once, On Sun09/19/23 at 2030, For 1 dose Given 09/19/2023 8:27 PM EMBROIDERER HAND 100 mEq sodium zirconium cyclosilicate 5 gram packet 5 g (LOKELMA) 5 g, oral, Once, On [facility] 09/20/23 at 1930, For 1 dose, Empty packet into glass containing at least 3 tablespoons water, stir well and drink immediately. If powder remains in glass, add water, stir and drink immediately. Repeat if necessary., Restriction Criteria (Pharmacy will review and approve if criteria met): Single dose for symptomatic hyperkalemia Given 09/20/2023 7:44 PM EMBROIDERER HAND 5 g tamsulosin 24 hr capsule 0.4 mg (FLOMAX) 0.4 mg, oral, Daily, First dose on Sun09/21/23 at 0900, Hold if indwelling urinary catheter in place Swallow whole. Do NOT crush, chew or open capsule. Given 09/26/2023 8:00 AM EMBROIDERER HAND 0.4 mg Given 09/25/2023 8:04 AM EMBROIDERER HAND 0.4 mg Given 09/24/2023 8:39 AM EMBROIDERER HAND 0.4 mg tranexamic acid 8 mg/mL in NaCl 0.9% 250 mL infusion (CYKLOKAPRON) 1.5 mg/kg/hr ? 87.2 kg (16.35 mL/hr, rounded to 16.4 mL/hr), intravenous, Continuous, Starting on Sun09/19/23 at 0645 Restarted 09/19/2023 5:19 PM EMBROIDERER HAND 2 mg/kg/hr 21.8 mL/hr Rate/Dose Change 09/19/2023 5:16 PM EMBROIDERER HAND 2 mg/kg/hr 21.8 mL /hr New Bag 09/19/2023 9:26 AM EMBROIDERER HAND 1.5 mg/kg/hr 16.35 mL/hr warfarin management (COUMADIN) [...] the RxCrush system. Given 09/24/2023 4:36 PM EMBROIDERER HAND 0.5 mg warfarin tablet 1 mg (COUMADIN) 1 mg, oral, Once, On Sun09/25/23 at 1700, For 1 dose, HAZARDOUS - Handle with care. Swallow whole. Do NOT chew or split tablet. May crush using the RxCrush system. Given 09/25/2023 5:34 PM EMBROIDERER HAND 1 mg warfarin tablet 2 mg (COUMADIN) 2 mg, oral, Once, On Sun09/21/23 at 1700, For 1 dose, HAZARDOUS - Handle with care. Swallow whole. Do NOT chew or split tablet. May crush using the RxCrush system. Given 09/21/2023 6:39 PM EMBROIDERER HAND 2 mg warfarin tablet 2 mg (COUMADIN) 2 mg, oral, Once, On Sun09/22/23 at 1700, For 1 dose, HAZARDOUS - Handle with care. Swallow whole. Do NOT chew or split tablet. May crush using the RxCrush system. Given 09/22/2023 5:36 PM EMBROIDERER HAND 2 mg documented in this encounter Active and Recently Administered Medications Times are shown in EMBROIDERER HAND. Scheduled Medication Order 09/24/2023 09/25/2023 09/26/2023 acetaminophen tablet 1,000 mg (TYLENOL)(Linked Group 1) 1,000 mg, oral, Every 6 hours, First dose (after last modification) on Sun09/21/23 at 1800 0141 (Given - Provider: Liliana Galindo RSammi)0838 (Given - Provider: Radha Lraa R.N.)1545 (Given - Provider: Amita Mercado R.N.)2034 (Given - Provider: Ar Mills R.N.) 0548 (Given - Provider: Ar Mills R.N.)1349 (Given - Provider: Kelsey Downing R.N.)1734 (Given - Provider: Kelsey Downing R.N.) 0055 (Given - Provider: Alireza Stahl RJarrettNJarrett)0659 (Given - Provider: Ar Mills R.N.)1139 (Given - Provider: Valorie Osman RJarrettNJarrett) amiodarone tablet 200 mg (PACERONE)(Linked Group 2) 200 mg, oral, 2 times daily, First dose on Sun09/26/23 at 0900, For 4 days 0757 (Given - Provider: Radha Lara RSammi) amiodarone tablet 200 mg (PACERONE)(Linked Group 2) 200 mg, oral, Daily, First dose on Sun09/30/23 at 0900, For 30 days amiodarone tablet 400 mg (PACERONE) (COMPLETED)(Linked Group 2) 400 mg, oral, 2 times daily, First dose on Sun09/22/23 at 1245, For 4 days 0839 (Given - Provider: Radha Lara R.N.)2033 (Given - Provider: Ar Mills R.N.) 0804 (Given - Provider: Kelsey Downing R.N.)2017 (Given - Provider: Ar Mills R.N.) aspirin chewable tablet 81 mg 81 mg, oral, Daily, First dose on Carissa 09/20/23 at 0900 0839 (Given - Provider: Radha Lara R.N.) 0804 (Given - Provider: Kelsey Downing R.N.) 0800 (Given - Provider: Radha Lara R.N.) atorvastatin tablet 80 mg (LIPITOR) 80 mg, oral, Daily at bedtime, First dose on Sun09/19/23 at 2100 2034 (Given - Provider: Ar Mills R.N.) 2017 (Given - Provider: Ar Mills R.N.) finasteride [...] Lara R.N.)1645 (Given - Provider: Erica Butler R.N. - Comment: Blood sugar of 221 mg/dl) 0811 (Given - Provider: Kelsey Downing R.N.)1354 (Given - Provider: Kelsey Downing R.N.)1742 (Given - Provider: Kelsey Downing R.N.) 0759 (Given - Provider: Radha Lara R.N.)1139 (Given - Provider: Valorie Osman R.N.) ipratropium-albuteroL 0.5-2.5 mg/3 mL nebulizer solution 3 mL (DUONEB) 3 mL, nebulization, 3 times daily, First dose on Sun09/24/23 at 1015 1023 (Given - Provider: Radha Lara R.N.)2034 (Given - Provider: Ar Mills R.N.) 0805 (Given - Provider: Kelsey Downing R.N.)1351 (Not Given - Provider: Kelsey Downing R.N. - Reason: Other)2017 (Not Given - Provider: Ar Mills R.N. - Reason: Patient/family refused) 0801 (Not Given - Provider: Radha Lara R.N. - Reason: Patient/family refused)1316 (Not Given - Provider: Valorie A Leuthner, R.N. - Reason: Patient/family refused) metoprolol tartrate tablet 25 mg (LOPRESSOR) 25 mg, oral, 2 times daily, First dose (after last modification) on Sun09/20/23 at 2100 0839 (Given - Provider: Radha Lara R.N.)2034 (Given - Provider: Ar Mills R.N.) 0804 (Given - Provider: Kelsey Downing R.N.)2017 (Given - Provider: Ar Mills R.N.) 0800 [...] Downing R.N.)1351 (Given - Provider: Kelsey Downing R.N.)2017 (Given - Provider: Ar Mills R.N.) 0758 (Given - Provider: Radha Lara R.N.)1319 (Given - Provider: Valorie Osman R.N.) sennosides-docusate sodium 8.6-50 mg per tablet 2 tablet (SENOKOT-S)(Linked Group 4) 2 tablet, oral, Daily at bedtime, First dose (after last modification) on Sun09/24/23 at 2100, Hold for loose stool 2033 (Not Given - Provider: Ar Mills R.N. [...] system. 1734 (Given - Provider: Kelsey Downing RSammi) PRN Medication Order 09/24/2023 09/25/2023 09/26/2023 albuterol nebulizer solution 2.5 mg 2.5 mg, nebulization, Every 4 hours PRN, wheezing, Starting on Sun09/19/23 at 1707 baclofen tablet 2.5 mg (LIORESAL) (CANCELED) 2.5 mg, oral, 3 times daily PRN, muscle spasms, hiccups, Starting on Sun09/24/23 at 0950 1545 (Given - Provider: Amita [...] Every 8 hours PRN, hiccups, Starting on Tu09/25/23 at 1053 naloxone injection 0.2 mg (NARCAN) [...] on Sun09/30/23 at 0900, For 30 days Group 3: pantoprazole injection 40 mg (PROTONIX) (CANCELED) 40 mg, intravenous, Daily, First dose on Sun09/20/23 at 0700, Change to PO once tolerating [...] documented as of this encounter Care Teams Compound Worker Relationship Specialty Start Date End Date Elsewhere, Pcp PCP - General Internal Medicine 08/19/23 09/27/23 documented as of this encounter
--- OUTSIDE RECORDS SUMMARY | 2023-12-30 07:26 | XMS_ITS | Encounter Summary ---
Author Name Unknown Organization [facility] Address [address] [place] [address] Care Team Providers Care Embedded Systems Software Engineer Name Role Phone Elsewhere, Pcp Primary Care Provider Unavailabl e Reason for Referral * Outpatient (Routine) - Closed Specialty Diagnoses / Procedures Referred By Sebas gimenez Referred To Contact Cardiovascular Surgery Diagnoses Coronary Arterial Bypass Graft Status Post Personal History Prosthesis Aortic Valve Coronary Artery Disease Without Angina Pectoris Laila Basurto P.A.-C. [address] [place] [phone] [facility] Referral ID Status Reason Start Date Expiration Date Visits Re quested Visits Authorized [id number] Closed 09/24/2023 09/23/2026 1 1 ORT PLANNER Encounter Details Date Type Department Care Team (Late st Contact Info) Description 09/24/2023 Clinical Communication RST [facility] [address] [place] [phone] Sarah Miller M.D., M.P.H. [address] [place] [phone] Social History Tobacco Use Types Packs/Day Years [...] living situation today? I have a [facility] place to live 08/29/2023 Sex and Gender Information Value Date Recorded Sex Assigned at Male 08/29/2023 11:06 AM CDT Gender Identity Male 08/29/2023 11:06 AM CDT Sexual Orientation Straight 08/29/2023 11 :06 AM CDT documented as of this encounter Plan of Treatment Upcoming Encounters Date Type Department Care Team (Late st Contact Info) Description 01/04/2024 10:30 AM AIRPORT PLANNER Comprehensive Visit Division of Hematology in [place], [place] [address] [place] [address] Brandy Real M.D., M.B.A. [address] [place] [address] Scheduled Referrals Name Type Priority Associated Diagnoses [...] documented as of this encounter Care Teams Embedded Systems Software Engineer Relationship Specialty Start Date End Date Elsewhere, Pcp PCP - General Internal Medicine 08/19/23 09/27/23 documented as of this encounter
--- OUTSIDE RECORDS SUMMARY | 2023-12-30 07:26 | XMS_ITS | Encounter Summary ---
Author Name Unknown Organization [facility] Address [address] [place] [address] Care Team Providers Care Screening Unit Registered Nurse Name Role Phone Elsewhere, Pcp Primary Care Provider Unavailabl e Reason for Visit * Auth/Cert (Routine) Specialty Diagnoses / Procedures Referred By Sebas t Referred To Contact Diagnoses Stenosis Aortic Valve Acquired Stenosis Aortic Valve Acquired [I35.0] Procedures NM RPLC AORTIC VLV W PROSTH VLV NM COR ART BYPASS 1 COR JORDAN GRAFT NM REOP COR ART BYP/VALVE PROC NM ENDO SURG W VA HARVEST CABG NM EXCL DAHIANA OPN OTH PX ANY METH REPLACEMENT AORTIC VALVE 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 - REDO LIGATION LEFT ATRIAL APPENDAGE ISOLATION PULMONARY VEIN Referral ID Status Reason Start Date Expiration Date Visits Re quested Visits Authorized [id number] 1 1 Encounter Details Date Type Department Care Team ([facility] Contact Info) Description 09/19/2023 6:45 AM HEAD OF SALES Ancillary Procedure RST ROMB MAIN OR [address] [place] [phone] Sarah Miller M.D., M.P.H. [address] [place] [phone] Social History Tobacco Use Types Packs/Day Years [...] your living situation today? I have a [facility] place to live 08/29/2023 Sex and Gender Information Value Date Recorded Sex Assigned at Male 08/29/2023 11:06 AM CDT Gender Identity Male 08/29/2023 11:06 AM CDT Sexual Orientation Straight 08/29/2023 11 :06 AM CDT documented as of this encounter Plan of Treatment Upcoming Encounters Date Type Department Care Team (Late st Contact Info) Description 01/04/2024 10:30 AM HEAD OF SALES Comprehensive Visit Division of Hematology in [place], [place] [address] [place] [address] RealBrandy lyon M.D., M.B.A. [address] [place] [address] documented as of this encounter Procedures Procedure Name Priority Date/Time Associated Diagnosis Comments (EDMUNDO) - INTRAOPERATIVE WITH COLOR AND LIMITED DOPPLER (PROBE NOT PLACED) Routine 09/19/2023 9:56 AM HEAD OF SALES documented in this encounter Results * (EDMUNDO) - INTRAOPERATIVE WITH COLOR AND LIMITED DOPPLER (PROBE NOT PLACED) (09/19/2023 9:56 AM HEAD OF SALES) Ejection Fraction [facility] Anatomical Region Laterality Modality Echocardiography 09/19/2023 6:43 AM HEAD OF SALES Impressions 09/19/2023 1:45 PM HEAD OF SALES PROCEDURE:Transesophageal echocardiogram performed at the request of the primary cargo service supervisor. Transesophageal echocardiogram completed without complications. PRE-BYPASS:Pre-bypass left [...] the Order-Level Documents. Narrative 09/19/2023 1:45 PM HEAD OF SALES For the complete report, see the Order-Level [...] PROCEDURE:Transesophageal echocardiogram performed at [facility] of [facility] service supervisor. Transesophageal echocardiogram completedwithout complications. PRE-BYPASS:Pre-bypass left ventricular [...] documented as of this encounter Care Teams Screening Unit Registered Nurse Relationship Specialty Start Date End Date Elsewhere, Pcp PCP - General Internal Medicine 08/19/23 09/27/23 documented as of this encounter
--- OUTSIDE RECORDS SUMMARY | 2023-12-30 07:26 | XMS_ITS | Encounter Summary ---
Author Name Unknown Organization [facility] Address [address] [place] [address] Care Team Providers Care Steel Shot Header Operator Name Role Phone Elsewhere, Pcp Primary Care Provider Unavailabl e Encounter Details Date Type Department Care Team (Latest Contact Info) Description 09/19/2023 7:00 AM HEAD OPERATOR SULFIDE Ancillary Procedure Department of Anesthesiology Social History [...] your living situation today? I have a [facility] place to live 08/29/2023 Sex and Gender Information Value Date Recorded Sex Assigned at Male 08/29/2023 11:06 AM CDT Gender Identity Male 08/29/2023 11:06 AM CDT Sexual Orientation Straight 08/29/2023 11 :06 AM CDT documented as of this encounter Plan of Treatment Upcoming Encounters Date Type Department Care Team (Late st Contact Info) Description 01/04/2024 10:30 AM HEAD OPERATOR SULFIDE Comprehensive Visit Division of Hematology in [place], [place] [address] [place] [address] Brandy Real M.D., M.B.A. [address] [place] [address] documented as of this encounter Procedures Procedure Name Priority Date/Time Associated Diagnosis Comments ANESTHESIOLOGY IMAGE EXAM Routine 09/19/2023 7:00 AM HEAD OPERATOR SULFIDE documented in this encounter Results * Non-Radiology Image-Anesthesiology Image Exam (09/19/2023 7:00 AM HEAD OPERATOR SULFIDE) 09/19/2023 7:00 AM HEAD OPERATOR SULFIDE Narrative IIMS - 09/19/2023 8:29 AM HEAD OPERATOR SULFIDE This order has been created and auto-finalized [...] as of this encounter Care Teams Steel Shot Header Operator Relationship Specialty Start Date End Date Elsewhere, Pcp PCP - General Internal Medicine 08/19/23 09/27/23 documented as of this encounter
--- OUTSIDE RECORDS SUMMARY | 2023-12-30 07:28 | XMS_ITS | Encounter Summary ---
Author Name Unknown Organization [facility] Address [address] [place] [address] Care Team Providers Care Car Cleaning Supervisor Name Role Phone Elsewhere, Pcp Primary Care Provider Unavailabl e Reason for Visit * Outpatient (Routine) - Closed Specialty Diagnoses / Procedures Referred By Sebas t Referred To Contact Pharmacy Diagnoses Stenosis Aortic Valve Acquired Acquired Aortic Valve Disorder Norman Roca APRN, C.N.P., D.N.P. [address] [place] [phone] [facility] Referral ID Status Reason Start Date Expiration Date Visits Re quested Visits Authorized [id number] Closed 09/05/2023 09/04/2024 1 1 Encounter Details Date Type Department Care Team (Late st Contact Info) Description 09/13/2023 12:40 PM CDT Virtual Visit Department of Pharmacy in [place], [place] [address] [place] [phone] Norman Roca APRN, C.N.P., D.N.P. [address] [place] [phone] Gena May, Luis Carlos.D., R.Ph. [address] [place] [phone] Stenosis Aortic Valve Acquired; Acquired Aortic [...] your living situation today? I have a [facility] place to live 08/29/2023 [...] st Contact Info) Description 01/04/2024 10:30 AM CUSTOMS AND BORDER PROTECTION INSPECTOR Comprehensive Visit Division of Hematology in [place], [place] [address] [place] [address] Brandy Real M.D., M.B.A. [address] [place] [address] documented as of this encounter Visit Diagnoses Diagnosis Stenosis Aortic Valve Acquired Acquired Aortic Valve Disorder documented in this encounter Additional Health Concerns Assessment Noted Time PHQ-9 Depression Total Score: 1 09/10/20 2:06 PM CDT documented as of this encounter Care Teams Car Cleaning Supervisor Relationship Specialty Start Date End Date Elsewhere, Pcp PCP - General Internal Medicine 08/19/23 09/27/23 documented as of this encounter
--- OUTSIDE RECORDS SUMMARY | 2023-12-30 07:28 | XMS_ITS | Encounter Summary ---
Author Name Unknown Organization [facility] Address [address] [place] [address] Care Team Providers Care Inspector And Tester Name Role Phone Elsewhere, Pcp Primary Care Provider Unavailabl e Encounter Details Date Type Department Care Team (Latest Contact Info) Description 09/18/2023 9:45 AM STATISTICAL MACHINE MECHANIC Office Visit Department of Cardiovascular Surgery in [place], [place] [address] [place] [phone] Elvi Oliva, TIBURCIOS, P.A.-C. [address] [place] [phone] Stenosis Aortic Valve Acquired (Primary Dx); Hypertensive [...] REFERRING PHYSICIAN: No ref. provider found Home card scraper: [facility] Home primary care provider[place] SUBJECTIVE CHIEF COMPLAINT / REASON FOR [...] 08/19/2023 for additional information. Patient presented to [facility] for chest discomfort on 08/19/2023. Patient [...] Glomerular Filtration Rate (GFR) 30 To 44 ([facility]) #3 Hypertension Essential Primary #4 Atrial Fibrillation Paroxysmal ([facility]) #5 Hemiplegia Dominant Side Right ([facility]) #6 Anemia In Chronic Kidney Disease #7 Benign Prostatic Hyperplasia Without Obstruction #8 Diabetes Mellitus Type 2 ([facility]) #9 Hyperlipidemia On Treatment #10 Stroke Cerebrovascular [...] 12.0) DM 2 For postoperative care: Consult addiction social worker on the inpatient setting, patient's is having [...] 3596) pamphlet; Your guide to Cardiac Surgery DO4790; Surgical Site Infection: Reducing Your Risk (MC 6471); Central Venous Catheter Infection: Reducing Your Risk (GC1570). Patient instructed to report to [facility] for Bactroban prescription. Application instructions [...] of the patient today. Time includes both [id number] [id number]-hr-[id number] patient care. MADHAV Chong, P.A.-C. ISTICAL MACHINE MECHANIC documented in this encounter Plan of Treatment Upcoming Encounters Date Type Department Care Team (Late st Contact Info) Description 01/04/2024 10:30 AM STATISTICAL MACHINE MECHANIC Comprehensive Visit Division of Hematology in [place], [place] [address] [place] [address] Brandy Real M.D., M.B.A. [address] [place] [address] documented as of this encounter Visit Diagnoses [...] documented as of this encounter Care Teams Inspector And Tester Relationship Specialty Start Date End Date Elsewhere, Pcp PCP - General Internal Medicine 08/19/23 09/27/23 documented as of this encounter
--- OUTSIDE RECORDS SUMMARY | 2023-12-30 07:28 | XMS_ITS | Encounter Summary ---
Author Name Unknown Organization [facility] Address [address] [place] [address] Care Team Providers Care Time Checker Name Role Phone Elsewhere, Pcp Primary Care Provider Unavailabl e Encounter Details Date Type Department Care Team (Late st Contact Info) Description 09/13/2023 Clinical Communication Department of Dental Specialties in [place], [place] [address] [place] [address] Duc Bowling D.D.S. [address] [place] [address] Social History Tobacco Use Types Packs/Day Years [...] your living situation today? I have a [facility] place to live 08/29/2023 Sex and Gender Information Value Date Recorded Sex Assigned at Male 08/29/2023 11:06 AM CDT Gender Identity Male 08/29/2023 11:06 AM CDT Sexual Orientation Straight 08/29/2023 11 :06 AM CDT documented as of this encounter Plan of Treatment Upcoming Encounters Date Type Department Care Team (Late st Contact Info) Description 01/04/2024 10:30 AM ANATOMY TEACHER Comprehensive Visit Division of Hematology in [place], [place] [address] [place] [address] Brandy Real M.D., M.B.A. [address] [place] [address] documented as of this encounter Visit Diagnoses Not on filedocumented in this encounter Additional Health Concerns Assessment Noted Time PHQ-9 Depression Total Score: 1 09/10/20 2:06 PM CDT documented as of this encounter Care Teams Time Checker Relationship Specialty Start Date End Date Elsewhere, Pcp PCP - General Internal Medicine 08/19/23 09/27/23 documented as of this encounter
--- OUTSIDE RECORDS SUMMARY | 2023-12-30 07:28 | XMS_ITS | Encounter Summary ---
Author Name Unknown Organization [facility] Address [address] [place] [address] Care Team Providers Care Gastroenterology Nurse Name Role Phone Elsewhere, Pcp Primary Care Provider Unavailabl e Reason for Visit * Auth/Cert (Routine) Specialty Diagnoses / Procedures Referred By Sebas t Referred To Contact Diagnoses Stenosis Aortic Valve Acquired Stenosis Aortic Valve Acquired [I35.0] Procedures OH RPLC AORTIC VLV W PROSTH VLV OH COR ART BYPASS 1 COR JORDAN GRAFT OH REOP COR ART BYP/VALVE PROC OH ENDO SURG W VA HARVEST CABG OH EXCL DAHIANA OPN OTH PX ANY METH REPLACEMENT AORTIC VALVE 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 - REDO LIGATION LEFT ATRIAL APPENDAGE ISOLATION PULMONARY VEIN Referral ID Status Reason Start Date Expiration Date Visits Re quested Visits Authorized [id number] 1 1 Encounter Details Date Type Department Care Team (Late st Contact Info) Description 09/19/2023 7:00 AM MERCHANDISE CARRIER - 09/19/2023 3:27 PM MERCHANDISE CARRIER Surgery RST ROMB MAIN OR [address] [place] [phone] Sarah Miller M.D., M.P.H. [address] [place] [phone] REPLACEMENT AORTIC VALVE, POSSIBLE AORTIC ROOT ENLARGEMENT. [...] Comments Blood Pressure 140/80 09/19/2023 7:13 AM MERCHANDISE CARRIER Pulse 72 09/19/2023 7:13 AM MERCHANDISE CARRIER Temperature 37 ??C (98.6 ??F) 09/19/2023 7:13 AM MERCHANDISE CARRIER Respiratory Rate 16 09/19/2023 7:13 AM MERCHANDISE CARRIER Oxygen Saturation 97% 09/19/2023 7:13 AM MERCHANDISE CARRIER Inhaled Oxygen Concentration - - Weight 85.8 kg (189 lb 2.5 oz) 09/19/2023 7:13 A M MERCHANDISE CARRIER Height 173 cm (5' 8.11) 09/19/2023 7:13 AM MERCHANDISE CARRIER Body Mass Index 29.37 09/26/2023 7:46 AM MERCHANDISE CARRIER documented in this encounter Discharge Summaries * [...] (Acute Kidney Injury) (HCC) Hyperkalemia 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 Therapy Swift Tender Antiplatelet Device Cardiac Status Post Cardiac Surgery [...] Follow-up recommendations post Cardiac Surgery Follow-up Visit: [facility] via a video visit on 10/03, Primary Care Provider appointment on 10/01 with INR, Primary Metal Stud Framer appointment TBD, referral sent. INR appointment on 09/28 at local lab. Follow-up Testing: Post-operative testing per the discretion of the PCP or Metal Stud Framer. Monitor INR at discretion of SNF provider [...] as needed for optimal blood pressure control. [place] [employer] Guidelines for individuals with coronary [...] atrial fibrillation or per recommendations by the Metal Stud Framer. Antiplatelet Therapy: Aspirin 81 mg daily recommended [...] assess surgical incision sites for healing. Contact [facility] Cardiovascular Surgery [phone] with any concerns. Anticoagulation: Warfarin (Coumadin initiated) [...] the cardiac rehab program. Patient referred to: [facility] [address] [place] [phone] Recommend that the patient check with insurance company to verify coverage of the cost of cardiac rehabilitation program visits. COVID-19: Due to the current COVID-19 pandemic, the patient was instructed to monitor for any new fever, cough, shortness of breath, sore throat, diarrhea, respiratory distress, or chills or muscle aches. Theyare to contact [facility] COVID-19 nurse line ([phone]) with any concerns. Reviewed the best measures [...] covers your nose and mouth OUTPATIENT FOLLOWUP [facility] Appointments: Scheduled Appointments 10/03/2023 1:30 PM [facility] Cardiovascular Surgery For appointment details refer to your Patient Appointment Guide. Outside [facility] Appointments: Consults and Follow-ups to Schedule Take a copy of this after visit summary to your appointment(s). [facility] [place] October 01, 2023 - Sunday -- 1:15 Arrival - INR blood test at [facility]. October 01, 2023 - Sunday -- 2:10 Arrival - Hospital Follow-Up with, primary care provider Dr. Cresencio Medina, at [facility]. RECOMMENDATIONS: *A referral for a Metal Stud Framer will need to be placed by your PCP, please schedule this visit 1-3 months after discharge. [facility] You may have outpatient appointments at [facility] that changed during your hospitalization. Referto your [facility] Patient Appointment Guide (PAG) for the most current schedule of appointments and detailed instructions of tests/procedures. Call [phone], if you did not receive an PAG or need to CANCEL any [facility] appointment(s). DISCHARGE MEDICATIONS: At the time of dismissal, pain medications (examples include oxycodone, Dilaudid, Tramadol, etc.)will be prescribed to you if needed. Duration will be determined on a elrw-ps-wmur basis and will not exceed 2 weeks. [...] M.P.H. Primary Jenny Stanford M.B., B.Ch., B.A.O. Stock Drier Tender Dismissal Vitals: Admission Weight: 85.8 kg Blood [...] 1.3 cm atrial appendage without mural thrombus. Hydramatic Specialist sections are submitted for microscopy in cassette A1. Grossed by Teresa Qureshi M.S., PA([facility]). B. Received fresh labeled with the [...] up to 0.2 cm in greatest size. Hydramatic Specialist sections are submitted for microscopy in cassette B1, following decalcification. Grossed by Teresa Qureshi M.S., PA([facility]). Block Summary A Heart, left atrial [...] were provided to the patient and caregiver(s). HANDISE CARRIER documented in this encounter Discharge Instructions * Discharge Instructions* Anatoliy Iqbal - 09/26/2023 8:49 AM MERCHANDISE CARRIER You were discharged from the [facility] Cardiovascular [facility] - [facility]. Please identify this service name if you call with questions after hospitalization. HANDISE CARRIER documented in this encounter Medications at Time [...] M.H.A., R.N., GRISEL - 09/26/2023 2:04 PM MERCHANDISE CARRIER SUBJECTIVE consulting technical manager Eloisa spoke with Mrs. Harris after nursing informed CM that patient no longer wants a fci facility. The patient has talked with his son and daughter and they will providecare for him at home. OBJECTIVE To have a decision made by patient and family about already accepted fci facility versus home with family. ASSESSMENT / PLAN Mr. Harris will now discharge home with family . SNF has been cancelled and medical team is aware. Damon Kraus, M.H.A., R.N., GRISEL 09/26/23 HANDISE CARRIER * Neelam Villalobos O.T., O.T.Petra - 09/26/2023 1:43 PM CST Occupational Therapy Acute Hospital Inpatient Treatment SUBJECTIVE Patient's Name: Jong Nievesgren Referring/Attending Provider: Sarah Miller M.D. Medical Diagnosis: Stenosis Aortic Valve Acquired [I35.0] Acquired Aortic Valve Disorder [I35.9] Reason for Referral: Occupational Therapy Evaluation and Treatment OT general acute Onset Date: 09/19/23 Payor: [facility] / Plan: [employer]ARP MEDICARE ADVANTAGE [place] [...] Education provided today: as noted Outcome Measures [facility] Inpatient Short Form: Putting on and [...] Standardized Score: 51.12 Interpretation: Clinicians answer the [facility] Inpatient Short Form based on observed [...] Time (min): 15 min Neelam Villalobos O.T., O.T.DJarrett HANDISE CARRIER * Aspen Greene P.T.A. - 09/26/2023 1:32 PM CST Physical Therapy Inpatient Treatment Note SUBJECTIVE Patient's Name: Jong Harris Referring/Attending: Sarah Miller M.D. Medical Diagnosis: Stenosis Aortic Valve Acquired [I35.0] Acquired Aortic Valve Disorder [I35.9] Reason for Referral: PT Evaluate and Treat General PT acute Onset Date: 09/19/23 Payor: [facility] / Plan: [facility] MEDICARE [facility] PPO / Product Type: PPO / [...] needs met and questions answered. Outcome Measures [facility] Inpatient Short Form: -[facility] Basic Mobility (V.2) How much [...] Climbing 3-5 steps with a railing?: None -[facility] Basic Mobility (V.2) Raw Score: 24 -[facility] Basic Mobility (V.2) Standardized Score: 57.68 Interpretation: Clinicians answer the -[facility] Inpatient Short Form based on [...] Next Inpatient Appointment: 09/27/23 PT Plan Comments: [place] with ambulation. Treatment interventions may include: Treatment/Interventions: Therapeutic exercise, Therapeutic functional activity, Neuromuscular re-education, Gait training ALUMINUM POOL INSTALLER Visit Trackin Billing: Time Spent with Patient Therapeutic Interventions Gait Training (min): 20 min Therapeutic Activity (min): 20 min Time Tracking Total Timed Units (min): 40 min Total Treatment Time (min): 40 min Aspen Greene P.T.A. HANDISE CARRIER Associated attestation - Lida Woodward P.T., D.P.TJarrett - 09/27/2023 11:06 AM MERCHANDISE CARRIER The patient has dismissed from the hospital. [...] stable and planned to discharge to a fci facility on 09/26. 24 Hour Events: Jong [...] To 46 ([facility]) #3 Hyperlipidemia On Treatment #4 Benign Prostatic Hyperplasia Without Obstruction #5 Atrial Fibrillation Paroxysmal ([facility]) #6 Diabetes Mellitus Type 2 ([facility]) #7 Anemia In Chronic Kidney Disease #8 Hemiplegia Dominant Side Right ([facility]) #9 Hypertension Essential Primary #10 Stroke Cerebrovascular Accident Personal History #11 Coronary Arterial Bypass Graft Status Post Personal History #12 Prosthesis Aortic Valve #13 Coronary Artery Disease Without Angina Pectoris #14 Anemia Posthemorrhagic Acute (Blood Loss Anemia) #15 Failure Renal Acute (Acute Kidney Injury) ([facility]) #16 Hyperkalemia #17 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 #18 Therapy Snf Antiplatelet #19 Device Cardiac Status Post #20 [...] of care of this patient with the mental health consultant surgeon, Dr. Miller. Anticipated dismissal date: 09/27. Anticipated destination: SNF. PT/OT following. Barriers to discharge: MANJEET Facility placement Medication reconciliation completed. HANDISE CARRIER * Eloisa Oro M.S.N., Alexis, R.N., GRISEL - 09/26/2023 7:44 AM MERCHANDISE CARRIER The patient is being prepared to discharge on 09/26/2023 at if medically ready for transfer. Contact CASE MANAGEMENT if time needs to be changed. Transportation will be provided by family. . Destination - Admitted Since 09/19/2023 Service Provider Selected Services Address Phone Fax Patient Preferred [facility] [address] [place] [address] [phone] -- Contact: Admissions Transportation oxygen: No oxygen [...] be completed. - Will continue to follow. HANDISE CARRIER * Ginette Greene P.A.-C., M.S. - 09/25/2023 [...] To 46 ([facility]) #3 Hyperlipidemia On Treatment #4 Benign Prostatic Hyperplasia Without Obstruction #5 Atrial Fibrillation Paroxysmal ([facility]) #6 Diabetes Mellitus Type 2 ([facility]) #7 Anemia In Chronic Kidney Disease #8 Hemiplegia Dominant Side Right ([facility]) #9 Hypertension Essential Primary #10 Stroke Cerebrovascular Accident Personal History #11 Coronary Arterial Bypass Graft Status Post Personal History #12 Prosthesis Aortic Valve #13 Coronary Artery Disease Without Angina Pectoris #14 Anemia Posthemorrhagic Acute (Blood Loss Anemia) #15 Failure Renal Acute (Acute Kidney Injury) ([facility]) #16 Hyperkalemia #17 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 #18 Therapy Snf Antiplatelet #19 Device Cardiac Status Post #20 [...] of care of this patient with the mental health consultant surgeon, Dr. Miller. Anticipated dismissal date: 09/26. Anticipated destination: SNF. PT/OT following. Barriers to discharge: MANJEET Facility placement Medication reconciliation completed. HANDISE CARRIER * Yun Childs M.S.N., R.N. - 09/25/2023 2:07 PM CST SUBJECTIVE The rifle case repairer met with the patient and his to discuss the accepted and pending referrals. The patient's asked the rifle case repairer to call the [facility] for possibility of taking patient because it is their first preference. [facility] and [facility] voice message for [...] following plan. Patient's anticipated discharge disposition is: [facility] Facility Referrals sent. [place] [facility] sent to [facility]. Transportation upon dismissal will be provided by family-- . environmental health specialist encouraged the patient to reach out with any questions/concerns. Damon Moreno, R.N. 09/25/23 HANDISE CARRIER * Lida Woodward P.T., D.P.T. - 09/25/2023 11:42 AM CST Physical Therapy Inpatient Treatment Note SUBJECTIVE Patient's Name: Jong Nieto Steven Referring/Attending: Sarah Miller M.D. Medical Diagnosis: Stenosis [...] needs met and questions answered. Outcome Measures -[facility] Inpatient Short Form: -[facility] Basic Mobility (V.2) How much [...] 3-5 steps with a railing?: A Little -[facility] Basic Mobility (V.2) Raw Score: 20 -[facility] Basic Mobility (V.2) Standardized Score: 43.99 Interpretation: Clinicians answer the -[facility] Inpatient Short Form based on [...] min Total Treatment Time (min): 20 min iLda Woodward P.T., D.P.T. HANDISE CARRIER * Pamela Medina Pharm.D., R.Ph. - 09/25/2023 [...] the hospital. Pamela Medina Pharm.D., R.Ph. Contact [phone] with any questions about this note. HANDISE CARRIER * Pamela Medina Pharm.D., R.Ph. - 09/25/2023 10:15 AM CST Clinical Pharmacist Progress Note Jong Harris is a 73 y.o. male admitted on 09/19/2023 who now presents to [id number]/614-P forpostoperative care. Procedures (current encounter): 09/19: CABG [...] seble lasix 40 mg BID Neuro: continues ALUMINUM POOL INSTALLER ropinirole. Endo: BG goal < 180, DCS following and has SSI available, has been intermittently hyperglycemic.Advancing diet as tolerated. Recommend starting insulin glargine 5 units daily. MISC: persistent hiccups, trialing PRN baclofen 2.5 mg TID. Would recommend trialing metoclopramide5 mg Q 8 hours (renally adjusted) instead due to less risk of CONTENT PRODUCTION SPECIALIST depression Prophylaxis: heparin subQ/warfarin, PPI (home med), +BR Home scheduled meds on hold: cholecalciferol, cyanocobalamin, ferrous sulfate, metformin Pamela Medina Pharm.D., R.Ph. HANDISE CARRIER * Laila Basurto P.A.-C. - 09/24/2023 3:32 [...] from his previous stroke. They are considering SNF/C for discharge planning. OBJECTIVE I have reviewed [...] 30 To 44 ([facility]) #6 Hyperlipidemia On Treatment #7 Benign Prostatic Hyperplasia Without Obstruction #8 Atrial Fibrillation Paroxysmal ([facility]) #9 Diabetes Mellitus Type 2 ([facility]) #10 Anemia In Chronic Kidney Disease #11 Hemiplegia Dominant Side Right ([facility]) #12 Hypertension Essential Primary #13 Stroke Cerebrovascular Accident Personal History #14 Anemia Posthemorrhagic Acute (Blood Loss Anemia) #15 Failure Renal Acute (Acute Kidney Injury) ([facility]) #16 Hyperkalemia #17 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 #18 Therapy Snf Antiplatelet #19 Device Cardiac Status Post #20 [...] of care of this patient with the mental health consultant surgeon, Dr. Miller. Anticipated dismissal date: 09/24. Anticipated destination: Home self-care, Home with home health care, or SNF. PT/OT following- patient will not haveavailable assistance at home after his 's surgery next week. SW following for disposition planning- have sent referrals for SNF and [facility], unsure whether he will qualify. Barriers to discharge: Diuresis Medication optimization MANJEET Facility placement Dismissal testing May require homegoing oxygen Medication reconciliation completed. HANDISE CARRIER * Lida Woodward P.T., D.P.T. - 09/24/2023 3:28 PM CST 09/24/23 1528 Reason Therapy Missed Reason Therapy Missed At test/procedure Patient away at [facility].. PT to follow up as able. HANDISE CARRIER * Neelam Villalobos O.T., O.T.D. - 09/24/2023 1:56 PM CST Occupational Therapy Acute Hospital Inpatient Treatment SUBJECTIVE Patient's Name: Jong Harris Referring/Attending Provider: Sarah Miller M.D. Medical Diagnosis: Stenosis Aortic Valve Acquired [I35.0] Acquired Aortic Valve Disorder [I35.9] Reason for Referral: Occupational Therapy Evaluation and Treatment OT eval and treat cardiac Onset Date: 09/19/23 Payor: [facility] / Plan: [employer]ARP MEDICARE ADVANTAGE [place] [...] Discussed patient's care with PT Outcome Measures [facility] Inpatient Short Form: Putting on and [...] Standardized Score: 40.22 Interpretation: Clinicians answer the [facility] Inpatient Short Form based on observed [...] with housekeeping, Assistance withtransportation, Assistance with financial services professional, Assistance with showering/bathing Recommended Adaptive Equipment [...] Time (min): 10 min Neelam Villalobos O.T., O.TRomeo HANDISE CARRIER * Eze Sevilla, R.RMilagros., L.R.T. - 09/24/2023 1:46 PM CST [...] Cory Sevilla R.R.T., EricaRJarrettTJarrett 09/24/23 1:47 PM MERCHANDISE CARRIER HANDISE CARRIER * Pamela Medina Pharm.D., R.Ph. - 09/24/2023 [...] the hospital. Pamela Medina Pharm.D., R.Ph. Contact [phone] with any questions about this note. HANDISE CARRIER * Pamela Medina Pharm.D., R.Ph. - 09/24/2023 10:19 AM CST Clinical Pharmacist Progress Note Jong Harris is a 73 y.o. male admitted on 09/19/2023 who now presents to [id number]/614-P forpostoperative care. Procedures (current encounter): 09/19: CABG [...] inaccurate UOP d/t undocumented voids Neuro: continues ALUMINUM POOL INSTALLER ropinirole. Endo: BG have been < 180, DCS following and has SSI available. Prophylaxis: heparin subQ/warfarin, PPI (home med) Home scheduled meds on hold: cholecalciferol, cyanocobalamin, ferrous sulfate, metformin Pamela Medina, Pharm.D., R.Ph. HANDISE CARRIER * Eloisa Oro M.S.N., M.H.A., R.N., [facility] - 09/24/2023 10:19 AM MERCHANDISE CARRIER SUBJECTIVE environmental health specialist Eloisa met with Mr and Mrs Harris to discuss the need for fci rehab at discharge. A list of insurance approved facilities was given. The below referrals have been sent. OBJECTIVE To obtain referrals for fci facilities at discharge. ASSESSMENT / PLAN Service Provider Request Status Selected Services Address Phone Fax Patient Preferred [facility] Pending - Request Sent N/A [address] [facility] [phone] -- [facility] Pending - Request Sent N/A [address] [facility] [phone] -- [facility] Pending - Request Sent N/A [address] [place] [address] [phone] -- [facility] Declined [facility] is CLOSED N/A [address] [facility] [phone] -- Current Capacity last updated by Christiana [place] on 08/15/2023 1413 [facility] has issued notice of closure. We cannot accept any new admissions. We will be having a short-term, private pay option in assisted living for clients who need PT/OT/ST (will be billed to their insurance). Referrals for this area need to go to [facility]. This area will open 10/12/2023 [facility] Declined Facility cannot provide for patient's needs N/A [address] [facility] [id number] -- -- Damon Kraus, M.H.A., R.N., GRISEL 09/24/2023 HANDISE CARRIER * Laila Basurto P.A.-C. - 09/23/2023 4:38 [...] 30 To 44 ([facility]) #6 Hyperlipidemia On Treatment #7 Benign Prostatic Hyperplasia Without Obstruction #8 Atrial Fibrillation Paroxysmal ([facility]) #9 Diabetes Mellitus Type 2 ([facility]) #10 Anemia In Chronic Kidney Disease #11 Hemiplegia Dominant Side Right ([facility]) #12 Hypertension Essential Primary #13 Stroke Cerebrovascular Accident Personal History #14 Anemia Posthemorrhagic Acute (Blood Loss Anemia) #15 Failure Renal Acute (Acute Kidney Injury) ([facility]) #16 Hyperkalemia #17 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 #18 Therapy Swift Tender Antiplatelet #19 Thrombocytopenia Secondary #20 Device Cardiac [...] of care of this patient with the mental health consultant surgeon, Dr. Miller. Anticipated dismissal date: 09/23-09/24. Anticipated destination: Home self-care or SNF. PT/OT following- patient has residual right-sided weakness from his stroke and will not have available assistance at home after his 's surgery next week. SW following for disposition planning. Barriers to discharge: INR Medication optimization MANJEET Dismissal testing May require homegoing oxygen Medication reconciliation completed. HANDISE CARRIER * Merle Reyes, Pharm.D., R.Ph. - 09/23/2023 2:17 PM CST Clinical Pharmacist Progress Note Jong Harris is a 73 y.o. male admitted on 09/19/2023 who now presents to [id number]/614-P forpostoperative care. Procedures (current encounter): 09/19: CABG [...] Renal: tamsulosin and finasteride resumed Neuro: continues ALUMINUM POOL INSTALLER ropinirole. Endo: BG have been < 180, DCS following and has SSI available. Prophylaxis: heparin subQ/warfarin, PPI (home med) Home scheduled meds on hold: cholecalciferol, cyanocobalamin, ferrous sulfate, metformin Merle Reyes, Ebony, R.Ph. HANDISE CARRIER * Marcela Lee APRN, C.N.P., M.S.N. - [...] PRBC this morning for Hgb of 7.3. HANDISE CARRIER * Laila Basurto P.A.-C. - 09/22/2023 4:00 [...] removal. An actuation system was not present. HANDISE CARRIER * Laila Basurto P.A.-C. - 09/22/2023 3:33 PM CST SUBJECTIVE oJng Harris is a 73 y.o. male admitted [...] previous stroke. They are considering SNF vs [facility] for discharge planning. OBJECTIVE I have reviewed [...] & Screen Expiration 09/25/2023 23:59 Testing Location [place] CBC without Differential Collection Time: 09/22/23 7:04 [...] To 44 ([facility]) #3 Hyperlipidemia On Treatment #4 Benign Prostatic Hyperplasia Without Obstruction #5 Atrial Fibrillation Paroxysmal ([facility]) #6 Diabetes Mellitus Type 2 ([facility]) #7 Anemia In Chronic Kidney Disease #8 Hypertension Essential Primary #9 Stroke Cerebrovascular Accident Personal History #10 Coronary Arterial Bypass Graft Status Post Personal History #11 Prosthesis Aortic Valve #12 Coronary Artery Disease Without Angina Pectoris #13 Anemia Posthemorrhagic Acute (Blood Loss Anemia) #14 Failure Renal Acute (Acute Kidney Injury) ([facility]) #15 Hyperkalemia #16 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 #17 Therapy Swift Tender Antiplatelet Neuro: No acute concerns. Pain is [...] No sign of active bleed. Platelets 129 [id number]. ID/Skin: No acute concerns. Post-operative antibiotic regimen complete. Maintain sternal incision wound vac until POD 5. Afebrile, WBC WNL. Will remove RIJ this evening. Continue LEATHA wraps to lower extremities when out of bed. Code Status: Full Code Disposition: Continue to monitor on the PCU. I directly examined/reviewed the plan of care of this patient with the mental health consultant surgeon, Dr. Miller. Anticipated dismissal date: 09/23-09/24. Anticipated destination: Pending PT/OT evaluation. PT/OT consulted for discharge planning- patient has residual right- sided weakness from his stroke and will not have available assistance at home after his 's surgery next week. SW following for disposition planning. Barriers to discharge: INR Medication optimization MANJEET Dismissal testing May require homegoing oxygen Medication reconciliation completed. HANDISE CARRIER * Purvi Wu Pharm.D., R.Ph. - 09/22/2023 [...] from the hospital. Purvi Wu PharmRomeo, R.Ph. HANDISE CARRIER * Dwayne Lew, Pharm.DJarrett, R.Ph. - 09/21/2023 10:04 AM MERCHANDISE CARRIER Clinical Pharmacist Progress Note Jong Harris is a 73 y.o. male admitted on 09/19/2023 who now presents to [id number]/566-P forpostoperative care. Procedures (current encounter): 09/19: CABG [...] Allen removed. Neuro: pain well controlled, continues ALUMINUM POOL INSTALLER ropinirole. Endo: BG have been < 180, DCS following and has SSI available. Prophylaxis: heparin subQ, PPI (home med) Home scheduled meds on hold: cholecalciferol, cyanocobalamin, ferrous sulfate, metformin Matthias Lew, PharmJarrettDJarrett, R.Ph. HANDISE CARRIER * Enmanuel Edward P.A.-C. - 09/21/2023 4:19 [...] 30 To 44 ([facility]) #5 Hyperlipidemia On Treatment #6 Benign Prostatic Hyperplasia Without Obstruction #7 Atrial Fibrillation Paroxysmal ([facility]) #8 Diabetes Mellitus Type 2 ([facility]) #9 Anemia In Chronic Kidney Disease #10 Hypertension Essential Primary #11 Stroke Cerebrovascular Accident Personal History #12 Coronary Artery Disease Without Angina Pectoris #13 Anemia Posthemorrhagic Acute (Blood Loss Anemia) #14 Failure Renal Acute (Acute Kidney Injury) ([facility]) #15 Hyperkalemia #16 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 Neuro: Sleep: [...] care of this patient with the critical personal caregiver. Anticipated dismissal date: TBD. Anticipated destination: Home [...] risk. Continue to follow PROTECT algorithm protocol. HANDISE CARRIER * Kari Hook MDIV - 09/20/2023 1:58 PM CST [facility] Spiritual Care Progress Note Patient: Jong Harris Age:73 y.o. Location: [id number] Reason(s) for encounter: Spiritual Care contact to [...] to verbally process surfacing emotions. Spiritual Assessment Taoism Identification / Spiritual Practices: Assembly of God He attempted to find the name of his jewish but could not remember. Coping and support: His and son had left before our visit. He attempted to use avoidance, changing the topic, and humor to cope with tough questions and good student assistance counselor. Patient named his avoidant coping skills [...] current medical condition and life stage. Provided anabaptism reading material to sustain patient's truman/practice while in hospital Facilitated anabaptism/spiritual practices (prayer, blessing, sacred texts, anabaptism item) with theaim to reinforce patient's spiritual [...] requested. Chaplains can be contacted by paging [phone] ([place]) or [phone] ([place]). HANDISE CARRIER * Dwayne Lew, Pharm.D., R.Ph. - 09/20/2023 10:02 AM MERCHANDISE CARRIER Clinical Pharmacist Progress Note Jong Harris is a 73 y.o. male admitted on 09/19/2023 who now presents to [id number] forpostoperative care. Procedures (current encounter): 09/19: CABG [...] ferrous sulfate, metformin Matthias Lew Pharm.D., R.Ph. HANDISE CARRIER * Bryce Wills M.D. - 09/20/2023 7:06 [...] type 2, was on metformin at home (OoB2t=4.2) Heme: extensive bleeding in OR, required plt, cryo and Kcentra, normal coagulation parameters now, will follow up on labs and watch for chest tube output Will proceed with anticoagulation per cardiac surgery team recommendations ID: continue perioperative antibiotics PPx: pantoprazole prophylaxis T/L/D: QUITA/GEORGE catheter, 3 tubes, Tiffany Wills ICU Fellow [id number] HANDISE CARRIER Associated attestation - Reji Kang M.D. - 09/20/2023 5:43 PM MERCHANDISE CARRIER I saw and evaluated the patient, participating [...] Present Illness: The patient is located in [facility], room 730. I have seen and [...] Epicardial wires were/were not placed with a [place] rhythm of SR. Ultimately, due to persistent [...] Full Code Critical care time: 45 min HANDISE CARRIER * Yuriy Wilson, R.R.T., L.R.T. - 09/19/2023 5:18 PM CST 1710: Pt. Arrived from OR intubated w/ 8.0 ett , secured at 22cm @ lip with twill tie. Pt. Placed on ASV 100%, peep 8, fio2 50%. Will adjust settings and wean as appropriate based on patients condtion. HANDISE CARRIER * Garrett Bahena PharmJarrettDJarrett, R.Ph. - 09/19/2023 1:18 PM CST [...] 130/80 CKD 3b Garrett Bahena Pharm.D., R.Ph. HANDISE CARRIER documented in this encounter H&P Notes * Jenny Stanford M.B., B.Ch., B.A.O. - 09/19/2023 6:36 AM CST INTERVAL HISTORY AND PHYSICAL PRE-PROCEDURE UPDATE H&P reviewed. The patient was examined and there are no significant changes to the H&P. Misty Howe, B.Ch., B.A.O. HANDISE CARRIER Source Note - Elvi Lundberg MPAS, P.A.-C. - 09/18/2023 9:45 AM MERCHANDISE CARRIER Jong Harris : 1950 Visit Date: 09/18/23 REFERRING PHYSICIAN: No ref. provider found Home transformer assembler: [facility] primary care provider: Dr. Adam Cotto [place], [place] SUBJECTIVE CHIEF COMPLAINT / REASON FOR [...] 08/19/2023 for additional information. Patient presented to [facility] ED for chest discomfort on 08/19/2023. Patient [...] CORONARY ANGIOGRAPHY; Surgeon: Ezequiel Jack M.D.; Location: [facility] Family History Problem Relation Age [...] 2 For postoperative care: Consult social work associate on the inpatient setting, patient's is having [...] 3596) pamphlet; Your guide to Cardiac Surgery FH0830; Surgical Site Infection: Reducing Your Risk (MC 6471); Central Venous Catheter Infection: Reducing Your Risk (FT4805). Patient instructed to report to [facility] for Bactroban prescription. Application instructions [...] of the patient today. Time includes both ihz-bslc-qa-face pajwfvq-dp-hmui patient care. MADHAV Chong, P.A.-C. 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 Per EMR, [...] on 09/26/23. Estimated Needs: Total Calorie Needs: 9053-6492 calories/day Method to Estimate Energy Needs: [place] ( basal to basal + 10% [...] about patient's nutritional care please contact pager [phone] on weekdays 07:30-16:00 or [phone] on weekends/holidays. HANDISE CARRIER * Ginette Cervantes RCEP - 09/24/2023 10:41 AM CSTAssociated Order(s): [...] the cardiac rehab program. Patient referred to: [facility] [address] [place] [address] Recommend that the patient check with insurance company to verify coverage of the cost of cardiac rehabilitation program visits. HANDISE CARRIER * Eloisa Oro M.S.Danny., M.H.A., R.N., [facility] - 09/24/2023 8:48 AM MERCHANDISE CARRIER Associated Order(s): IP CONSULT TO CARE MANAGEMENT; IP CONSULT TO CARE MANAGEMENT Discharge Planning Assessment SUBJECTIVE Assessment Information Referral Source: Nurse Referral Name: Liliana Galindo RSammi Referral Reason: Discharge Planning Primary Language: Cuban Wood Casket Maker Services Used: Yes Person(s) present during interview: [...] (HCC) #16 Hyperkalemia #17 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 #18 Therapy Snf Antiplatelet #19 Thrombocytopenia Secondary #20 Device Cardiac Status Post Social History Marital Status: Lissy Finance/Insurance Primary insurance: [facility] MEDICARE ADVANTAGE [facility] Secondary insurance: N/A Does the patient have any financial concerns? no benefits: No Advance Directives Legal Decision Maker: Self Advance Directives Status: Not completed OBJECTIVE Baseline Functional Status Baseline Activities of Daily Living Mobility: Independent Dressing: Independent Feeding: Independent Bathing: Independent Grooming: Independent Toileting: Independent Behavior: Appropriate, Pleasant, Calm, Cooperative, Oriented Communication: Can write, Talks, Understands speaking, Understands Cuban, Reads Shopping: Independent Transportation: Independent to drive [...] Fanny or Lissy Phone Number for Ride/Caregiver: [phone] Anticipated Discharge Destination: [facility] Facility ASSESSMENT / PLAN Assessment: The environmental health specialist met with Jong Harris to discuss his current hospitalization and home going needs. The patient was unaccompanied. The patient was a reliable historian. The role of environmental health specialist was reviewed. The patient reviewed his prior level of care and support system. The patient receives support from his , daughter, and son. Mr. Harris lives in a 1st floor apartment with his Lissy. The patients will need knee surgery in 4 days and they have requested the patient go to a [facility]ci facility for PT/OT rehab if possible, referrals [...] responsibilities have previously been completed by patient. environmental health specialist discussed the patient's potential needs at [...] following new service(s) to be set up: fci facility. After reviewing the patient's chart and meeting with the patient, the environmental health specialist deemed the LACE+/readmission questions were not necessary. The patient reports understanding that he will dismiss from the hospital when medically stable. Pending hospital course and medical readiness, no barriers to dismissal have been identified at this time. Plan: The patient agrees with the following plan. Patient's anticipated discharge disposition is: [facility] Facility Planning needs to be initiated. Transportation upon dismissal will be provided by family--Son or daughter . environmental health specialist recommended reaching out to family, friends, and neighbors for assistance. environmental health specialist provided information regarding the dismissal process. environmental health specialist placed or requested the following hospital-based consult orders and/or referrals: None. environmental health specialist will continue to assess for homegoing needs with the interdisciplinary team. environmental health specialist encouraged the patient to reach out with any questions/concerns. Care Management will continue to follow. Signed by: Norma Kraus., M.H.A., R.N., [facility] 09/24/2023 HANDISE CARRIER * Neelam Villalobos O.T., O.T.D. - 09/23/2023 10:14 AM CST Occupational Therapy Acute Hospital Inpatient Evaluation/Treatment SUBJECTIVE Patient's Name: Jong Harris Referring/Attending Provider: Sarah Miller M.D. 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 Prior Mobility/Functional Transfers Level of [place]: Independent Home Living Type of Home: Apartment Home Access: Stairs to enter with rails Entrance Stairs: Rails: Left Entrance Stairs: Number of Steps: 6 Bathroom Shower/Tub: Tub/shower unit Tub/shower unit location: Main floor Bathroom Toilet: Standard Home Living Comments: would have to side shuffle with a walker Home Equipment Home Adaptive Equipment: Accounting Instructor Other DME Equipment : (flat bed) Bathroom Equipment: Grab bars in shower, Tub transfer bench Family/Caregiver Present: Yes (son) Patient/Caregiver Goals: None stated Patient Comments: Patient presented on toilet, having just completed mobility in hallway and to bathroom with verification specialist. Patient with no complaints of pain, [...] Handouts provided today: Recovery From Heart Surgery [id number] Team Communication: Patient's nurse was contacted and patient's status was discussed, Discussed patient's care with PT Co-treatment with: Physical Therapy (Co-treatment session with PT, The patient benefited from having two skilled therapists present to progress mobility safely. OT addressed functional mobility as itrelates to completing activities of daily living.) Outcome Measures [facility] Inpatient Short Form: Putting on and [...] Standardized Score: 40.22 Interpretation: Clinicians answer the -[facility] Inpatient Short Form based on [...] with housekeeping, Assistance withtransportation, Assistance with financial services professional, Assistance with showering/bathing Recommended Adaptive Equipment [...] (min): 28 min Neelam Villalobos O.T., O.TRomeo HANDISE CARRIER * Ximena Green P.T., D.P.T. - 09/23/2023 10:14 AM CST Physical Therapy Inpatient Evaluation/Treatment SUBJECTIVE Patient's Name: Jong Harris Referring/Attending Provider: Sarah Miller M.D. 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 Outcome Measures -[facility] Inpatient Short Form: AM-PAC Basic Mobility [...] 3-5 steps with a railing?: A Little AM-[facility] Basic Mobility (V.2) Raw Score: 18 AM-[facility] Basic Mobility (V.2) Standardized Score: 41.05 Interpretation: Clinicians answer the AM-[facility] Inpatient Short Form based on [...] (min): 26 min Ximena Green P.T., D.P.T. HANDISE CARRIER * Vipul Garcia P.A.-C. - 09/21/2023 12:34 [...] primary service with questions regarding blood sugars. HANDISE CARRIER documented in this encounter Nursing Notes * Valorie Osman R.N. - 09/26/2023 2:15 PM CST Patient discharging home to self care. residential placement canceled per patients request. Education complete. All medications and future appointments reviewed with patient. All questions answered.Vital signs stable. IVs removed. Patient transported by [facility] home. Electronically signed by: Valorie Osman R.N. 09/26/23 3:50 PM MERCHANDISE CARRIER HANDISE CARRIER * Ar Mills R.N. - 09/26/2023 5:17 [...] by: Ar Mills R.N. 09/26/23 5:19 AM MERCHANDISE CARRIER HANDISE CARRIER * Kelsey Downing R.N. - 09/25/2023 5:46 PM CST Shift Goals: Clinical Goals for the Shift: Dismissal planning Identify possible barriers to meeting goals/advancing plan of care: None End of Shift Summary: Dismissal education progressing well. Plan is to dismiss to SNF on Sunday morning. Denies questions at this time. HANDISE CARRIER * Ar Mills R.N. - 09/25/2023 5:37 [...] by: Ar Mills R.N. 09/25/23 5:39 AM MERCHANDISE CARRIER HANDISE CARRIER * Amita Mercado R.N. - 09/24/2023 6:42 [...] Goal: Maintain a safe environment Outcome: Progressing HANDISE CARRIER * Radha Lara R.N. - 09/23/2023 5:20 PM CST Shift Goals: Clinical Goals for the Shift: Education and ambulation Identify possible barriers to meeting goals/advancing plan of care: Tiredness End of Shift Summary: Patient ambulated to the bathroom multiple times throughout the day. He was able to ambulate in the day three times with encouragement. The patient required a rest detention through the walk. Education was started while the was present. .Electronically signed by: Radha Lara R.N. 09/23/23 5:23 PM MERCHANDISE CARRIER Problem: KNOWLEDGE DEFICIT Goal: Patient/family/caregiver demonstrates understanding of disease process, treatment plan, medications, and discharge instructions Outcome: Progressing Problem: SKIN/TISSUE INTEGRITY Goal: Skin/Tissue integrity maintained or improved Outcome: Progressing Problem: DISCHARGE PLANNING Goal: Patient discharge needs identified Outcome: Progressing HANDISE CARRIER * Julienne Harding R.N. - 09/23/2023 4:13 [...] for hemodynamic support. Pain control remains adequate. HANDISE CARRIER * Julienne Harding R.N. - 09/22/2023 11:50 [...] bed. Neuro status intact at this time. HANDISE CARRIER * Elieser Fong - 09/22/2023 6:26 PM [...] Recent CPT: Elieser Fong 09/22/23 6:27 PM MERCHANDISE CARRIER Under the direction of Lazara Lopez R.R.T., L.R.T. HANDISE CARRIER * Vipin Catalan R.RBryanna, L.R.T. - 09/21/2023 2:24 AM CST Patient is a 73 y.o. male admitted on 09/19/2023 Alert Information: Plan of Care: Assess respiratory needs Principal Problem Stenosis Aortic Valve Acquired Oxygen Therapy $Delivery Method: Nasal cannula Arterial Line 09/19/23 Left Radial (Active) Placement Date/Time: 09/19/23 (c) 1290 Procedural Pause Completed: Yes Catheter Time Out [...] L PCO2 ART 43 PH ART 7.37 HANDISE CARRIER * Kev Duke R.R.T., L.R.T. - 09/20/2023 [...] Left Radial (Active) Placement Date/Time: 09/19/23 (c) 3266 Procedural Pause Completed: Yes Catheter Time Out [...] PH ART 7.37 Skin integrity checked: intact. HANDISE CARRIER * Yuriy Wilson R.R.T., L.R.T. - 09/19/2023 [...] Standard ETT (Active) Placement Date/Time: 09/19/23 (c) 6797 Mask Ventilation: Oral/Nasal airway needed Technique: Directlaryngoscopy, intubation ETT Type: Standard ETT Tube Size: 8 mm Cuffed: Yes Blade Size: Ospina 2 Location: Oral Airway secured at (Initial grover... Arterial Line 09/19/23 Left Radial (Active) Placement Date/Time: 09/19/23 (c) 3734 Procedural Pause Completed: Yes Catheter Time Out [...] PH ART 7.37 Skin integrity checked: good HANDISE CARRIER documented in this encounter OR Notes * [...] Post-op Diagnosis Same as preop A assistant men's lacrosse coach actively participated and was necessary for one [...] non pledgetted Prolene suture and a 20 Portuguese DLP arterial cannula. The right atrium was [...] at a pressure 100 mm Hg a [id number] mL/minute was obtained. We re-dosed the cardioplegia [...] in stable conditions. Sarah Miller M.D., M.P.H. HANDISE CARRIER * Brief Op Note - Jenny Stanford M.B., B.Ch., B.A.O. - 09/19/2023 8:59 AM CST BRIEF OP NOTE Procedure(s): REPLACEMENT AORTIC VALVE, POSSIBLE AORTIC ROOT ENLARGEMENT. (On-X Conform 23mm Valve) CORONARY ARTERY BYPASS GRAFT X1, VEIN. LIGATION LEFT ATRIAL APPENDAGE. ISOLATION PULMONARY VEIN. ECHOCARDIOGRAM TRANSESOPHAGEAL Surgeon(s) and Role: * Sarah Miller M.D., M.P.H. - Primary * Jenny Stanford M.B., B.Ch., B.A.O. - Stock Drier Tender Anesthesia Type General Pre-operative Diagnosis Stenosis Aortic [...] Implants Implant Name LRB Site No. Used Nutrition Consultant Mfr No. Serial No. Status Type CLP HRZN TI 6 CLP KIKA - [id number] N/A Chest 1 [employer]flex [employer] [id number] Implanted Hardware e.g. pins/screws/rods CLP HRZN TI 24 CLP SM RED - [id number] N/A Chest 1 [employer] [id number] Implanted Hardware e.g. pins/screws/rods CLP HRZN TI 24 CLP SM RED - [id number] N/A Chest 1 [employer] [id number] Implanted Hardware e.g. pins/screws/rods FELT SURG TFLN 1X6 - [id number] N/A Chest 1 [employer] [id number] Implanted Hardware e.g. pins/screws/rods CLP HRZN TI 24 CLP KIKA - [id number] N/A Chest 1 [employer] [id number] Implanted Hardware e.g. pins/screws/rods VLV AORT CNF [facility] 23 - [id number] - [id number] N/A Aortic Valve 1 [employer] (Prev. [employer]) [place] [id number] Implanted Cardiac Valve Prosthesis Patient Condition:ICU: Stable Misty Howe, BKolby., B.A.O. HANDISE CARRIER documented in this encounter Miscellaneous Notes * Hospital Course - Ginette Greene P.A.-C., M.S. - 09/20/2023 1:59 AM MERCHANDISE CARRIER Jong Harris is a 73 y.o. male [...] M.P.H. Primary Jenny Stanford M.B., B.Ch., B.A.O. Stock Drier Tender Dismissal Vitals: Admission Weight: 85.8 kg Blood [...] to the increased Doppler velocities (8.3 g/dL). HANDISE CARRIER documented in this encounter Plan of Treatment Upcoming Encounters Date Type Department Care Team (Late st Contact Info) Description 01/04/2024 10:30 AM MERCHANDISE CARRIER Comprehensive Visit Division of Hematology in [place], [place] [address] [place] [address] Brandy Real M.D., M.B.A. [address] [place] [id number] Pending Results Name Type Priority Associated Diagnoses Date /Time Prepare Red Blood Cells, 2 Units Blood Bank STAT 09/18/2023 9:04 AM MERCHANDISE CARRIER Prepare Platelets : 1 Units Blood Bank STAT 09/20/2023 2:30 AM MERCHANDISE CARRIER Prepare Red Blood Cells, 2 Units Blood Bank STAT 09/18/2023 9:04 AM MERCHANDISE CARRIER Prepare Fresh Frozen Plasma : 1 Units Blood Bank STAT 09/20/2023 2:30 AM MERCHANDISE CARRIER Prepare Platelets : 1 Units Blood Bank STAT 09/20/2023 2:30 AM MERCHANDISE CARRIER Prepare Pooled Cryoprecipitate : 2 Pools Blood Bank STAT 2022 4:30 AM MERCHANDISE CARRIER Prepare Red Blood Cells, 2 Units Blood Bank STAT 09/18/2023 9:04 AM MERCHANDISE CARRIER Prepare Platelets : 1 Units Blood Bank STAT 09/20/2023 6:30 AM MERCHANDISE CARRIER Scheduled Referrals Name Type Priority Associated Diagnoses Orde r Schedule External referral cardiac rehab program (non-[place]) Outpatient Referral Routine Prosthesis Aortic Valve Bypass Coronary Artery Graft Status Post Ordered: 09/24/2023 documented as of this encounter Procedures Procedure Name Priority Date/Time Associated Diagnosis Comments GLUCOSE POCT, B Routine 09/26/2023 11:37 AM MERCHANDISE CARRIER GLUCOSE POCT, B Routine 09/26/2023 7:55 AM MERCHANDISE CARRIER PROTHROMBIN TIME (PT), P Routine 09/26/2023 6:58 AM MERCHANDISE CARRIER CBC WITHOUT DIFFERENTIAL, B Routine 09/26/2023 6:58 AM MERCHANDISE CARRIER BASIC METABOLIC PANEL, S/P Routine 09/26/2023 6:58 AM MERCHANDISE CARRIER GLUCOSE POCT, B Routine 09/25/2023 8:25 PM MERCHANDISE CARRIER GLUCOSE POCT, B Routine 09/25/2023 5:36 PM MERCHANDISE CARRIER GLUCOSE POCT, B Routine 09/25/2023 1:13 PM MERCHANDISE CARRIER PROTHROMBIN TIME (PT), P Routine 09/25/2023 9:26 AM MERCHANDISE CARRIER CBC WITHOUT DIFFERENTIAL, B Routine 09/25/2023 9:26 AM MERCHANDISE CARRIER BASIC METABOLIC PANEL, S/P Routine 09/25/2023 9:26 AM MERCHANDISE CARRIER GLUCOSE POCT, B Routine 09/25/2023 8:10 AM MERCHANDISE CARRIER DX CHEST AP OR PA AND LATERAL 2 VIEWS RAD - Routine (most inpatients and all outpatients) 09/25/2023 7:26 AM MERCHANDISE CARRIER ECG Routine 09/25/2023 4:55 AM MERCHANDISE CARRIER GLUCOSE POCT, B Routine 09/24/2023 8:33 PM MERCHANDISE CARRIER GLUCOSE POCT, B Routine 09/24/2023 4:44 PM MERCHANDISE CARRIER NOCTURNAL OXYGEN STUDY - RT Routine 09/24/2023 3:46 PM MERCHANDISE CARRIER (TTE) 2D ECHO DOPPLER COLOR Routine 09/24/2023 3:26 PM MERCHANDISE CARRIER GLUCOSE POCT, B Routine 09/24/2023 12:43 PM MERCHANDISE CARRIER RT TO ARRANGE FOR HOME DME Routine 09/24/2023 11:14 AM MERCHANDISE CARRIER GLUCOSE POCT, B Routine 09/24/2023 7:19 AM MERCHANDISE CARRIER PROTHROMBIN TIME (PT), P Routine 09/24/2023 6:49 AM MERCHANDISE CARRIER CBC WITHOUT DIFFERENTIAL, B Routine 09/24/2023 6:49 AM MERCHANDISE CARRIER BASIC METABOLIC PANEL, S/P Routine 09/24/2023 6:49 AM MERCHANDISE CARRIER GLUCOSE POCT, B Routine 09/23/2023 9:38 PM MERCHANDISE CARRIER GLUCOSE POCT, B Routine 09/23/2023 5:02 PM MERCHANDISE CARRIER PROTHROMBIN TIME (PT), P STAT 09/23/2023 3:44 PM MERCHANDISE CARRIER HEMOGLOBIN, B STAT 09/23/2023 3:44 PM MERCHANDISE CARRIER BASIC METABOLIC PANEL, S/P STAT 09/23/2023 3:44 PM MERCHANDISE CARRIER GLUCOSE POCT, B Routine 09/23/2023 12:19 PM MERCHANDISE CARRIER DX CHEST AP OR PA AND LATERAL 2 VIEWS RAD - Routine (most inpatients and all outpatients) 09/23/2023 8:44 AM MERCHANDISE CARRIER PROTHROMBIN TIME (PT), P Routine 09/23/2023 7:34 AM MERCHANDISE CARRIER CBC WITHOUT DIFFERENTIAL, B Routine 09/23/2023 7:34 AM MERCHANDISE CARRIER BASIC METABOLIC PANEL, S/P Routine 09/23/2023 7:34 AM MERCHANDISE CARRIER HEPATIC FUNCTION PANEL, S Routine 09/23/2023 7:31 AM MERCHANDISE CARRIER GLUCOSE POCT, B Routine 09/23/2023 7:24 AM MERCHANDISE CARRIER CBC WITHOUT DIFFERENTIAL, B STAT 09/22/2023 11:14 PM MERCHANDISE CARRIER BASIC METABOLIC PANEL, S/P STAT 09/22/2023 11:14 PM MERCHANDISE CARRIER GLUCOSE POCT, B Routine 09/22/2023 9:29 PM MERCHANDISE CARRIER RESPIRATORY ASSESS AND TREAT Routine 09/22/2023 2:00 PM MERCHANDISE CARRIER TRANSFUSE RED BLOOD CELLS Routine 09/22/2023 2:00 PM MERCHANDISE CARRIER GLUCOSE POCT, B Routine 09/22/2023 11:27 AM MERCHANDISE CARRIER GLUCOSE POCT, B Routine 09/22/2023 7:34 AM MERCHANDISE CARRIER PROTHROMBIN TIME (PT), P Routine 09/22/2023 7:04 AM MERCHANDISE CARRIER CBC WITHOUT DIFFERENTIAL, B Routine 09/22/2023 7:04 AM MERCHANDISE CARRIER BASIC METABOLIC PANEL, S/P Routine 09/22/2023 7:04 AM MERCHANDISE CARRIER TYPE AND SCREEN Routine 09/22/2023 7:01 AM MERCHANDISE CARRIER GLUCOSE POCT, B Routine 09/21/2023 10:52 PM MERCHANDISE CARRIER GLUCOSE POCT, B Routine 09/21/2023 7:07 PM MERCHANDISE CARRIER RESPIRATORY ASSESS AND TREAT Routine 09/21/2023 2:00 PM MERCHANDISE CARRIER GLUCOSE POCT, B Routine 09/21/2023 11:27 AM MERCHANDISE CARRIER GLUCOSE POCT, B Routine 09/21/2023 8:50 AM MERCHANDISE CARRIER PROTHROMBIN TIME (PT), P STAT 09/21/2023 7:47 AM MERCHANDISE CARRIER PATIENT STATUS Timed 09/21/2023 6:35 AM MERCHANDISE CARRIER ABG W/COOX Timed 09/21/2023 6:35 AM MERCHANDISE CARRIER GLUCOSE POCT, B Routine 09/21/2023 6:31 AM MERCHANDISE CARRIER CBC WITHOUT DIFFERENTIAL, B Timed 09/21/2023 5:11 AM MERCHANDISE CARRIER PHOSPHORUS (INORGANIC), S Timed 09/21/2023 5:11 AM MERCHANDISE CARRIER MAGNESIUM, S Timed 09/21/2023 5:11 AM MERCHANDISE CARRIER BASIC METABOLIC PANEL, S/P Timed 09/21/2023 5:11 AM MERCHANDISE CARRIER BASIC METABOLIC PANEL, S/P Timed 09/21/2023 12:21 AM MERCHANDISE CARRIER GLUCOSE POCT, B Routine 09/20/2023 8:33 PM MERCHANDISE CARRIER POTASSIUM, S/P Timed 09/20/2023 8:33 PM MERCHANDISE CARRIER GLUCOSE POCT, B Routine 09/20/2023 4:31 PM MERCHANDISE CARRIER BASIC METABOLIC PANEL, S/P STAT 09/20/2023 4:27 PM MERCHANDISE CARRIER RESPIRATORY ASSESS AND TREAT Routine 09/20/2023 2:00 PM MERCHANDISE CARRIER GLUCOSE POCT, B Routine 09/20/2023 11:51 AM MERCHANDISE CARRIER BASIC METABOLIC PANEL, S/P STAT 09/20/2023 11:51 AM MERCHANDISE CARRIER GLUCOSE POCT, B Routine 09/20/2023 6:30 AM MERCHANDISE CARRIER PREPARE PLATELETS STAT 09/20/2023 6:3 0 AM MERCHANDISE CARRIER PREPARE CRYOPRECIPITATE STAT 09/20/2023 4:30 AM MERCHANDISE CARRIER LACTATE, B Timed 09/20/2023 4:11 AM MERCHANDISE CARRIER PATIENT STATUS Timed 09/20/2023 4:11 AM MERCHANDISE CARRIER ABG W/O COOX Timed 09/20/2023 4:11 AM MERCHANDISE CARRIER ACTIVATED PARTIAL THROMBOPLASTIN TIME (APTT), P Timed 09/20/2023 4:09 AM MERCHANDISE CARRIER PROTHROMBIN TIME (PT), P Timed 09/20/2023 4:09 AM MERCHANDISE CARRIER CBC WITHOUT DIFFERENTIAL, B Timed 09/20/2023 4:09 AM MERCHANDISE CARRIER MAGNESIUM, S Timed 09/20/2023 4:09 AM MERCHANDISE CARRIER BASIC METABOLIC PANEL, S/P Timed 09/20/2023 4:09 AM MERCHANDISE CARRIER DX CHEST PORTABLE WITH AM ROUNDS 1 VIEW RAD - Routine (most inpatients and all outpatients) 09/20/2023 3:33 AM MERCHANDISE CARRIER TIMP2/[id number] MANJEET RISK SCORE, U Routine 09/20/2023 3:24 AM MERCHANDISE CARRIER PREPARE PLATELETS STAT 09/20/2023 2:3 0 AM MERCHANDISE CARRIER PREPARE PLATELETS STAT 09/20/2023 2:3 0 AM MERCHANDISE CARRIER PREPARE FRESH FROZEN PLASMA STAT 09/20/2023 2:30 AM MERCHANDISE CARRIER GLUCOSE POCT, B Routine 09/20/2023 1:17 AM MERCHANDISE CARRIER GLUCOSE POCT, B Routine 09/19/2023 11:58 PM MERCHANDISE CARRIER GLUCOSE POCT, B Routine 09/19/2023 11:20 PM MERCHANDISE CARRIER LACTATE, B Timed 09/19/2023 10:58 PM MERCHANDISE CARRIER RESPIRATORY ASSESS AND TREAT Routine 09/19/2023 10:30 PM MERCHANDISE CARRIER GLUCOSE POCT, B Routine 09/19/2023 10:27 PM MERCHANDISE CARRIER GLUCOSE POCT, B Routine 09/19/2023 9:24 PM MERCHANDISE CARRIER ECG Routine 09/19/2023 8:14 PM MERCHANDISE CARRIER GLUCOSE POCT, B Routine 09/19/2023 7:58 PM MERCHANDISE CARRIER LACTATE, B Timed 09/19/2023 7:43 PM MERCHANDISE CARRIER PATIENT STATUS Timed 09/19/2023 7:43 PM MERCHANDISE CARRIER ABG W/COOX Timed 09/19/2023 7:43 PM MERCHANDISE CARRIER LACTATE, B/P Timed 09/19/2023 7:43 PM MERCHANDISE CARRIER GLUCOSE POCT, B Routine 09/19/2023 6:57 PM MERCHANDISE CARRIER GLUCOSE POCT, B Routine 09/19/2023 6:23 PM MERCHANDISE CARRIER DX CHEST PORTABLE 1 VIEW 09/19/2023 5:45 PM MERCHANDISE CARRIER LACTATE, B STAT 09/19/2023 5:19 PM MERCHANDISE CARRIER PATIENT STATUS STAT 09/19/2023 5:19 PM MERCHANDISE CARRIER ABG W/COOX STAT 09/19/2023 5:19 PM MERCHANDISE CARRIER CYSTATIN C WITH EGFR Timed 09/19/2023 5:19 PM MERCHANDISE CARRIER Acquired Aortic Valve Disorder ACTIVATED PARTIAL THROMBOPLASTIN TIME (APTT), P STAT 09/19/2023 5:19 PM MERCHANDISE CARRIER PROTHROMBIN TIME (PT), P STAT 09/19/2023 5:19 PM MERCHANDISE CARRIER FIBRINOGEN, P STAT 09/19/2023 5:19 PM MERCHANDISE CARRIER CBC WITHOUT DIFFERENTIAL, B STAT 09/19/2023 5:19 PM MERCHANDISE CARRIER BASIC METABOLIC PANEL, S/P STAT 09/19/2023 5:19 PM MERCHANDISE CARRIER AIRWAY CARE Routine 09/19/2023 5:16 PM MERCHANDISE CARRIER MECHANICAL VENTILATOR Routine 09/19/2023 5:16 PM MERCHANDISE CARRIER RESPIRATORY ASSESS AND TREAT Routine 09/19/2023 5:07 PM MERCHANDISE CARRIER TRANSFUSE PLATELETS Routine 09/19/2023 4 :58 PM MERCHANDISE CARRIER LACTATE, B STAT 09/19/2023 4:20 PM MERCHANDISE CARRIER SODIUM, B STAT 09/19/2023 4:20 PM MERCHANDISE CARRIER ABG W/COOX STAT 09/19/2023 4:20 PM MERCHANDISE CARRIER POTASSIUM, B STAT 09/19/2023 4:20 PM MERCHANDISE CARRIER GLUCOSE, WHOLE BLOOD STAT 09/19/2023 4:20 PM MERCHANDISE CARRIER ACTIVATED PARTIAL THROMBOPLASTIN TIME (APTT), P STAT 09/19/2023 4:20 PM MERCHANDISE CARRIER PROTHROMBIN TIME (PT), P STAT 09/19/2023 4:20 PM MERCHANDISE CARRIER FIBRINOGEN, P STAT 09/19/2023 4:20 PM MERCHANDISE CARRIER PLATELETS, B STAT 09/19/2023 4:20 PM MERCHANDISE CARRIER CALCIUM, IONIZED, S/B STAT 09/19/2023 4:20 PM MERCHANDISE CARRIER TRANSFUSE CRYOPRECIPITATE Routine 09/19/2023 3:53 PM MERCHANDISE CARRIER TRANSFUSE CRYOPRECIPITATE Routine 09/19/2023 3:51 PM MERCHANDISE CARRIER TRANSFUSE RED BLOOD CELLS Routine 09/19/2023 3:50 PM MERCHANDISE CARRIER LACTATE, B STAT 09/19/2023 3:37 PM MERCHANDISE CARRIER SODIUM, B STAT 09/19/2023 3:37 PM MERCHANDISE CARRIER ABG W/COOX STAT 09/19/2023 3:37 PM MERCHANDISE CARRIER THROMBOELASTOGRAPH, KAOLIN + HEPARINASE, B STAT 09/19/2023 3:37 PM MERCHANDISE CARRIER POTASSIUM, B STAT 09/19/2023 3:37 PM MERCHANDISE CARRIER GLUCOSE, WHOLE BLOOD STAT 09/19/2023 3:37 PM MERCHANDISE CARRIER THROMBOELASTOGRAPH, KAOLIN, B STAT 09/19/2023 3:37 PM MERCHANDISE CARRIER ACTIVATED PARTIAL THROMBOPLASTIN TIME (APTT), P STAT 09/19/2023 3:37 PM MERCHANDISE CARRIER PROTHROMBIN TIME (PT), P STAT 09/19/2023 3:37 PM MERCHANDISE CARRIER FIBRINOGEN, P STAT 09/19/2023 3:37 PM MERCHANDISE CARRIER PLATELETS, B STAT 09/19/2023 3:37 PM MERCHANDISE CARRIER CALCIUM, IONIZED, S/B STAT 09/19/2023 3:37 PM MERCHANDISE CARRIER TRANSFUSE RED BLOOD CELLS Routine 09/19/2023 3:23 PM MERCHANDISE CARRIER SODIUM, B STAT 09/19/2023 2:46 PM MERCHANDISE CARRIER ABG W/COOX STAT 09/19/2023 2:46 PM MERCHANDISE CARRIER POTASSIUM, B STAT 09/19/2023 2:46 PM MERCHANDISE CARRIER GLUCOSE, WHOLE BLOOD STAT 09/19/2023 2:46 PM MERCHANDISE CARRIER ACTIVATED PARTIAL THROMBOPLASTIN TIME (APTT), P STAT 09/19/2023 2:46 PM MERCHANDISE CARRIER PROTHROMBIN TIME (PT), P STAT 09/19/2023 2:46 PM MERCHANDISE CARRIER FIBRINOGEN, P STAT 09/19/2023 2:46 PM MERCHANDISE CARRIER PLATELETS, B STAT 09/19/2023 2:46 PM MERCHANDISE CARRIER CALCIUM, IONIZED, S/B STAT 09/19/2023 2:46 PM MERCHANDISE CARRIER DX CHEST RETAINED SURGICAL ITEM 1 VIEW RAD - Emergent (Fastest; for the most critically ill patients) 09/19/2023 2:30 PM MERCHANDISE CARRIER TRANSFUSE PLATELETS Routine 09/19/2023 2 :15 PM MERCHANDISE CARRIER TRANSFUSE RED BLOOD CELLS Routine 09/19/2023 2:00 PM MERCHANDISE CARRIER SODIUM, B STAT 09/19/2023 1:40 PM MERCHANDISE CARRIER ABG W/COOX STAT 09/19/2023 1:40 PM MERCHANDISE CARRIER POTASSIUM, B STAT 09/19/2023 1:40 PM MERCHANDISE CARRIER GLUCOSE, WHOLE BLOOD STAT 09/19/2023 1:40 PM MERCHANDISE CARRIER ACTIVATED PARTIAL THROMBOPLASTIN TIME (APTT), P STAT 09/19/2023 1:40 PM MERCHANDISE CARRIER PROTHROMBIN TIME (PT), P STAT 09/19/2023 1:40 PM MERCHANDISE CARRIER FIBRINOGEN, P STAT 09/19/2023 1:40 PM MERCHANDISE CARRIER PLATELETS, B STAT 09/19/2023 1:40 PM MERCHANDISE CARRIER CALCIUM, IONIZED, S/B STAT 09/19/2023 1:40 PM MERCHANDISE CARRIER AUTOLOGOUS RED BLOOD CELLS-CELL SALVAGE Routine 09/19/2023 1:28 PM MERCHANDISE CARRIER TRANSFUSE FRESH FROZEN PLASMA Routine 09/19/2023 1:24 PM MERCHANDISE CARRIER TRANSFUSE PLATELETS Routine 09/19/2023 1 :09 PM MERCHANDISE CARRIER LACTATE, B STAT 09/19/2023 12:45 PM MERCHANDISE CARRIER SODIUM, B STAT 09/19/2023 12:45 PM MERCHANDISE CARRIER ABG W/COOX STAT 09/19/2023 12:45 PM MERCHANDISE CARRIER POTASSIUM, B STAT 09/19/2023 12:45 PM MERCHANDISE CARRIER GLUCOSE, WHOLE BLOOD STAT 09/19/2023 12:45 PM MERCHANDISE CARRIER CALCIUM, IONIZED, S/B STAT 09/19/2023 12:45 PM MERCHANDISE CARRIER ACTIVATED PARTIAL THROMBOPLASTIN TIME (APTT), P STAT 09/19/2023 12:44 PM MERCHANDISE CARRIER PROTHROMBIN TIME (PT), P STAT 09/19/2023 12:44 PM MERCHANDISE CARRIER FIBRINOGEN, P STAT 09/19/2023 12:44 PM MERCHANDISE CARRIER PLATELETS, B STAT 09/19/2023 12:44 PM MERCHANDISE CARRIER ACT, POCT, B Routine 09/19/2023 12:42 PM MERCHANDISE CARRIER HEMOGLOBIN (HGB), POCT, B Routine 09/19/2023 12:17 PM MERCHANDISE CARRIER ACT, POCT, B Routine 09/19/2023 12:01 PM MERCHANDISE CARRIER GLUCOSE POCT, B Routine 09/19/2023 12:00 PM MERCHANDISE CARRIER SURGICAL PATHOLOGY, [facility]OZEN LAB Routine 09/19/2023 11:34 AM MERCHANDISE CARRIER Stenosis Aortic Valve Acquired AUTOLOGOUS RED BLOOD CELLS-CELL SALVAGE Routine 09/19/2023 11:33 AM MERCHANDISE CARRIER ACT, POCT, B Routine 09/19/2023 11:28 AM MERCHANDISE CARRIER ACT, POCT, B Routine 09/19/2023 10:55 AM MERCHANDISE CARRIER ACT, POCT, B Routine 09/19/2023 10:24 AM MERCHANDISE CARRIER GLUCOSE POCT, B Routine 09/19/2023 10:23 AM MERCHANDISE CARRIER TRANSFUSE RED BLOOD CELLS Routine 09/19/2023 10:13 AM MERCHANDISE CARRIER (EDMUNDO) - INTRAOPERATIVE WITH COLOR AND LIMITED DOPPLER (PROBE NOT PLACED) Routine 09/19/2023 9:56 AM MERCHANDISE CARRIER SODIUM, B STAT 09/19/2023 9:51 AM MERCHANDISE CARRIER ABG W/COOX STAT 09/19/2023 9:51 AM MERCHANDISE CARRIER ACT, POCT, B Routine 09/19/2023 9:51 AM MERCHANDISE CARRIER POTASSIUM, B STAT 09/19/2023 9:51 AM MERCHANDISE CARRIER GLUCOSE, WHOLE BLOOD STAT 09/19/2023 9:51 AM MERCHANDISE CARRIER CALCIUM, IONIZED, S/B STAT 09/19/2023 9:51 AM MERCHANDISE CARRIER ACT, POCT, B Routine 09/19/2023 9:26 AM MERCHANDISE CARRIER HEMOGLOBIN (HGB), POCT, B Routine 09/19/2023 9:24 AM MERCHANDISE CARRIER LACTATE, B STAT 09/19/2023 8:25 AM MERCHANDISE CARRIER SODIUM, B STAT 09/19/2023 8:25 AM MERCHANDISE CARRIER ABG W/COOX STAT 09/19/2023 8:25 AM MERCHANDISE CARRIER POTASSIUM, B STAT 09/19/2023 8:25 AM MERCHANDISE CARRIER GLUCOSE, WHOLE BLOOD STAT 09/19/2023 8:25 AM MERCHANDISE CARRIER CALCIUM, IONIZED, S/B STAT 09/19/2023 8:25 AM MERCHANDISE CARRIER ACT, POCT, B Routine 09/19/2023 8:24 AM MERCHANDISE CARRIER ECHOCARDIOGRAM TRANSESOPHAGEAL 09/19/2023 7:03 AM MERCHANDISE CARRIER Stenosis Aortic Valve Acquired ISOLATION PULMONARY VEIN 09/19/2023 7:03 AM MERCHANDISE CARRIER Stenosis Aortic Valve Acquired LIGATION LEFT ATRIAL APPENDAGE 09/19/2023 7:03 AM MERCHANDISE CARRIER 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 09/19/2023 7:03 AM MERCHANDISE CARRIER Stenosis Aortic Valve Acquired REPLACEMENT AORTIC VALVE 09/19/2023 7:03 AM MERCHANDISE CARRIER Stenosis Aortic Valve Acquired PREPARE RED BLOOD CELLS STAT 09/18/2023 9:04 AM MERCHANDISE CARRIER PREPARE RED BLOOD CELLS STAT 09/18/2023 9:04 AM MERCHANDISE CARRIER PREPARE RED BLOOD CELLS STAT 09/18/2023 9:04 AM MERCHANDISE CARRIER documented in this encounter Results * (ABNORMAL) Glucose, POCT (09/26/2023 11:37 AM MERCHANDISE CARRIER) Glucose, POCT, B 190(H) 70 - 140 mg/dL 09/26/2023 11:54 AM MERCHANDISE CARRIER PCLX Site Capillary 09/26/2023 11:54 AM MERCHANDISE CARRIER PCLX Last Intake 3-4 hours 09/26/2023 11:54 AM MERCHANDISE CARRIER PCLX Blood 09/26/2023 11:3 7 AM MERCHANDISE CARRIER 09/26/2023 11:54 AM MERCHANDISE CARRIER Unknown Provider LAB POCT ORDERABLES- MANUAL [facility] [address] [place] [address], [facility] PCLX [facility] POC [address] [place] [address] * (ABNORMAL) Glucose, POCT (09/26/2023 7:55 AM MERCHANDISE CARRIER) Glucose, POCT, B 148(H) 70 - 140 mg/dL 09/26/2023 8:07 AM MERCHANDISE CARRIER PCLX Site Capillary 09/26/2023 8:07 AM MERCHANDISE CARRIER PCLX Last Intake 3-4 hours 09/26/2023 8:07 AM MERCHANDISE CARRIER PCLX Blood 09/26/2023 7:55 AM MERCHANDISE CARRIER 09/26/2023 8:07 AM MERCHANDISE CARRIER Unknown Provider LAB POCT ORDERABLES- MANUAL Performing Organization Address City/[facility]/ZIP Co de Phone Number [facility]OC [facility] [address] [place] [address], [facility] PCLX [facility] [address] [place] [address] * (ABNORMAL) Basic Metabolic Panel (09/26/2023 6:58 AM MERCHANDISE CARRIER) Potassium, S 4.4 3.6 - 5.2 mmol/L 09/26/2023 8:19 AM MERCHANDISE CARRIER DTL Sodium, S 141 135 - 145 mmol/L 09/26/2023 8:19 AM MERCHANDISE CARRIER DTL Chloride, S 101 98 - 107 mmol/L 09/26/2023 8:19 AM MERCHANDISE CARRIER DTL Bicarbonate, S 31(H) 22 - 29 mmol/L 09/26/2023 8:19 AM MERCHANDISE CARRIER DTL Anion Gap 9 7 - 15 09/26/2023 8:19 AM MERCHANDISE CARRIER DTL BUN (Blood Urea Nitrogen), S 32(H) 8 - 24 mg/dL 09/26/2023 8:19 AM MERCHANDISE CARRIER DTL Creatinine 2.41(H) 0.74 - 1.35 mg/dL 09/26/2023 8:19 AM MERCHANDISE CARRIER DTL Estimated GFR (eGFR) 28(L) >=60 mL/min/BSA 09/26/2023 8:19 AM MERCHANDISE CARRIER DTL Comment: Estimated GFR calculated using the 2020 CKD_EPI creatinine equation. Calcium, Total, S 8.5(L) 8.8 - 10.2 mg/dL 09/26/2023 8:19 AM MERCHANDISE CARRIER DTL Glucose, S 151(H) 70 - 140 mg/dL 09/26/2023 8:19 AM MERCHANDISE CARRIER DTL Blood (Blood, Venous) 09/26/2023 6:58 AM MERCHANDISE CARRIER 09/26/2023 7:58 AM MERCHANDISE CARRIER Laila Basurto P.A.-C. LAB BLOOD ADD -ON [facility] [address] [place] [address], [facility] DTL [facility] [address] [place] [address] * (ABNORMAL) Prothrombin Time (PT) (09/26/2023 6:58 AM MERCHANDISE CARRIER) Pathologist [facility] Prothrombin Time, P 22.0(H) 9.4 - 12.5 sec 09/26/2023 8:25 AM MERCHANDISE CARRIER DTL INR 2.0 0.9 - 1.1 09/26/2023 8:25 AM MERCHANDISE CARRIER DTL Comment: ----ADDITIONAL INFORMATION---- Standard intensity warfarin therapeutic range: 2.0 to 3.0 ?? High intensity warfarin therapeutic range: 2.5 to 3.5 Blood (Blood, Venous) 09/26/2023 6:58 AM MERCHANDISE CARRIER 09/26/2023 7:42 AM MERCHANDISE CARRIER Anette Hair APRN, C.N.P., D.N.P. LAB B LOOD ADD-ON [place] [address] [facility] [address] [place] [address] * (ABNORMAL) CBC without Differential (09/26/2023 6:58 AM MERCHANDISE CARRIER) [facility] Hemoglobin 8.3(L) 13.2 - 16.6 g/dL 09/26/2023 8:04 AM MERCHANDISE CARRIER DTL Hematocrit 25.5(L) 38.3 - 48.6 % 09/26/2023 8:04 AM MERCHANDISE CARRIER DTL Erythrocytes 2.70(L) 4.35 - 5.65 x10(12)/L 09/26/2023 8:04 AM MERCHANDISE CARRIER DTL MCV 94.4 78.2 - 97.9 fL 09/26/2023 8:04 AM MERCHANDISE CARRIER DTL RBC Distrib Width 13.5 11.8 - 14.5 % 09/26/2023 8:04 AM MERCHANDISE CARRIER DTL Platelet Count 214 135 - 317 x10(9)/L 09/26/2023 8:04 AM MERCHANDISE CARRIER DTL Leukocytes 6.7 3.4 - 9.6 x10(9)/L 09/26/2023 8:04 AM MERCHANDISE CARRIER DTL Blood (Blood, Venous) 09/26/2023 6:58 AM MERCHANDISE CARRIER 09/26/2023 7:43 AM MERCHANDISE CARRIER Jenny Jay, BKolby., B.A.O. LAB BLOOD ADD-ON [facility] [address] [place] [address], [facility] DTL [facility] [address] [place] [address] * (ABNORMAL) Glucose, POCT (09/25/2023 8:25 PM MERCHANDISE CARRIER) Glucose, POCT, B 193(H) 70 - 140 mg/dL 09/25/2023 8:31 PM MERCHANDISE CARRIER PCLX Site Capillary 09/25/2023 8:31 PM MERCHANDISE CARRIER PCLX Blood 09/25/2023 8:25 PM MERCHANDISE CARRIER 09/25/2023 8:31 PM MERCHANDISE CARRIER Unknown Provider LAB POCT ORDERABLES- MANUAL [facility] [address] [place] [address], [place] PCLX [facility] POC [address] [place] [address] * (ABNORMAL) Glucose, POCT (09/25/2023 5:36 PM MERCHANDISE CARRIER) Glucose, POCT, B 197(H) 70 - 140 mg/dL 09/25/2023 5:38 PM MERCHANDISE CARRIER PCLX Site Capillary 09/25/2023 5:38 PM MERCHANDISE CARRIER PCLX Last Intake 3-4 hours 09/25/2023 5:38 PM MERCHANDISE CARRIER PCLX Blood 09/25/2023 5:36 PM MERCHANDISE CARRIER 09/25/2023 5:39 PM MERCHANDISE CARRIER Unknown Provider LAB POCT ORDERABLES- MANUAL [facility]OC [facility] [address] [place] [address], [place] PCLX [facility] POC [address] [place] [address] * (ABNORMAL) Glucose, POCT (09/25/2023 1:13 PM MERCHANDISE CARRIER) Glucose, POCT, B 196(H) 70 - 140 mg/dL 09/25/2023 1:15 PM MERCHANDISE CARRIER PCLX Last Intake 3-4 hours 09/25/2023 1:15 PM MERCHANDISE CARRIER PCLX Blood 09/25/2023 1:13 PM MERCHANDISE CARRIER 09/25/2023 1:16 PM MERCHANDISE CARRIER Unknown Provider LAB POCT ORDERABLES- MANUAL [facility] [address] [place] [address], [place] PCLX [facility] POC [address] [place] [address] * (ABNORMAL) Basic Metabolic Panel (09/25/2023 9:26 AM MERCHANDISE CARRIER) Pathologist [facility] Potassium, S 4.3 3.6 - 5.2 mmol/L 09/25/2023 10:36 AM MERCHANDISE CARRIER DTL Sodium, S 138 135 - 145 mmol/L 09/25/2023 10:36 AM MERCHANDISE CARRIER DTL Chloride, S 98 98 - 107 mmol/L 09/25/2023 10:36 AM MERCHANDISE CARRIER DTL Bicarbonate, S 30(H) 22 - 29 mmol/L 09/25/2023 10:36 AM MERCHANDISE CARRIER DTL Anion Gap 10 7 - 15 09/25/2023 10:36 AM MERCHANDISE CARRIER DTL BUN (Blood Urea Nitrogen), S 34(H) 8 - 24 mg/dL 09/25/2023 10:36 AM MERCHANDISE CARRIER DTL Creatinine 2.64(H) 0.74 - 1.35 mg/dL 09/25/2023 10:36 AM MERCHANDISE CARRIER DTL Estimated GFR (eGFR) 25(L) >=60 mL/min/BSA 09/25/2023 10:36 AM MERCHANDISE CARRIER DTL Comment: Estimated GFR calculated using the 2020 CKD_EPI creatinine equation. Calcium, Total, S 8.6(L) 8.8 - 10.2 mg/dL 09/25/2023 10:36 AM MERCHANDISE CARRIER DTL Glucose, S 177(H) 70 - 140 mg/dL 09/25/2023 10:36 AM MERCHANDISE CARRIER DTL Blood (Blood, Venous) 09/25/2023 9:26 AM MERCHANDISE CARRIER 09/25/2023 10:18 AM MERCHANDISE CARRIER Laila Basurto P.A.-C. LAB BLOOD ADD -ON Performing Organization Address [facility] Co de Phone Number [facility] [address] [facility] [address] [place] [address] * (ABNORMAL) Prothrombin Time (PT) (09/25/2023 9:26 AM MERCHANDISE CARRIER) Prothrombin Time, P 22.4(H) 9.4 - 12.5 sec 09/25/2023 11:10 AM MERCHANDISE CARRIER DTL INR 2.0 0.9 - 1.1 09/25/2023 11:10 AM MERCHANDISE CARRIER DTL Comment: ----ADDITIONAL INFORMATION---- Standard intensity warfarin therapeutic range: 2.0 to 3.0 ?? High intensity warfarin therapeutic range: 2.5 to 3.5 Blood (Blood, Venous) 09/25/2023 9:26 AM MERCHANDISE CARRIER 09/25/2023 10:05 AM MERCHANDISE CARRIER Anette Hair APRN, C.N.P., D.N.P. LAB B LOOD ADD-ON Performing Organization Address [facility] de Phone Number [facility] [address] [place], [place] [address] [address] [place] [address] * (ABNORMAL) CBC without Differential (09/25/2023 9:26 AM MERCHANDISE CARRIER) Hemoglobin 9.0(L) 13.2 - 16.6 g/dL 09/25/2023 10:55 AM MERCHANDISE CARRIER DTL Hematocrit 27.2(L) 38.3 - 48.6 % 09/25/2023 10:55 AM MERCHANDISE CARRIER DTL Erythrocytes 2.93(L) 4.35 - 5.65 x10(12)/L 09/25/2023 10:55 AM MERCHANDISE CARRIER DTL MCV 92.8 78.2 - 97.9 fL 09/25/2023 10:55 AM MERCHANDISE CARRIER DTL RBC Distrib Width 13.6 11.8 - 14.5 % 09/25/2023 10:55 AM MERCHANDISE CARRIER DTL Platelet Count 229 135 - 317 x10(9)/L 09/25/2023 10:55 AM MERCHANDISE CARRIER DTL Leukocytes 7.5 3.4 - 9.6 x10(9)/L 09/25/2023 10:55 AM MERCHANDISE CARRIER DTL Blood (Blood, Venous) 09/25/2023 9:26 AM MERCHANDISE CARRIER 09/25/2023 10:09 AM MERCHANDISE CARRIER Jenny Jay, B.Ch., B.A.O. LAB BLOOD ADD-ON Performing Organization Address City/[facility]/ZIP Co de Phone Number [facility] [address] [place] [address], [facility] DTL [facility] [address] [place] [address] * (ABNORMAL) Glucose, POCT (09/25/2023 8:10 AM MERCHANDISE CARRIER) [facility] Glucose, POCT, B 161(H) 70 - 140 mg/dL 09/25/2023 8:19 AM MERCHANDISE CARRIER PCLX Site Capillary 09/25/2023 8:19 AM MERCHANDISE CARRIER PCLX Last Intake 3-4 hours 09/25/2023 8:19 AM MERCHANDISE CARRIER PCLX Blood 09/25/2023 8:10 AM MERCHANDISE CARRIER 09/25/2023 8:19 AM MERCHANDISE CARRIER Unknown Provider LAB POCT ORDERABLES- MANUAL POC [facility] [address] [place] [address], [facility] PCLX [facility] POC [address] [place] [address] * DX Chest AP or PA and Lateral 2 Views (09/25/2023 7:26 AM MERCHANDISE CARRIER) Anatomical Region Laterality Modality Chest, Thoracic RST LOS, Tho racic ARZ LOS, Thoracic FLA LOS N/A Digital Radiography 09/25/2023 8:59 AM MERCHANDISE CARRIER Impressions 09/25/2023 9:01 AM MERCHANDISE CARRIER Sternotomy with aortic valve replacement. Mild enlargement of cardiac silhouette. Loop recorder. Trace pleural effusions. Azygos fissure. Aortic calcification. Degenerative arthritis thoracic spine. No pneumothorax. No significant change since 09/23/2023. Narrative 09/25/2023 9:01 AM MERCHANDISE CARRIER EXAM: ??DX CHEST AP OR PA AND [...] * ECG 12 Lead (09/25/2023 4:55 AM MERCHANDISE CARRIER) Ventricular Rate ECG/Min 69 BPM MUSE OH Interval 140 ms MUSE QRSD Interval 86 ms MUSE QT Interval 420 ms MUSE QTC Interval 450 ms MUSE P [place] 30 degrees MUSE R [place] 29 degrees MUSE T Wave [place] 74 degrees MUSE 09/25/2023 4:55 AM MERCHANDISE CARRIER 09/25/2023 5:12 AM MERCHANDISE CARRIER Impressions MUSE - 09/25/2023 5:13 AM MERCHANDISE CARRIER Normal sinus rhythm Low voltage QRS in [...] No significant change was found Reviewed by Inez Fossey, CRAT Laila Basurto P.A.-C. ECG ORDERABLE S Performing Organization Address City/[facility]/ZIP Co de Phone Number MUSE NA * (ABNORMAL) Glucose, POCT (09/24/2023 8:33 PM MERCHANDISE CARRIER) Glucose, POCT, B 183(H) 70 - 140 mg/dL 09/24/2023 8:40 PM MERCHANDISE CARRIER PCLX Site Capillary 09/24/2023 8:40 PM MERCHANDISE CARRIER PCLX Blood 09/24/2023 8:33 PM MERCHANDISE CARRIER 09/24/2023 8:40 PM MERCHANDISE CARRIER Unknown Provider LAB POCT ORDERABLES- MANUAL Performing Organization Address [facility] Co de Phone Number POC [facility] [address] [place] [address], [facility] PCLX [facility] POC [address] [place] [address] * (ABNORMAL) Glucose, POCT (09/24/2023 4:44 PM MERCHANDISE CARRIER) [facility] Glucose, POCT, B 221(H) 70 - 140 mg/dL 09/24/2023 4:59 PM MERCHANDISE CARRIER PCLX Site Capillary 09/24/2023 4:59 PM MERCHANDISE CARRIER PCLX Last Intake 2-3 hours 09/24/2023 4:59 PM MERCHANDISE CARRIER PCLX Blood 09/24/2023 4:44 PM MERCHANDISE CARRIER 09/24/2023 5:00 PM MERCHANDISE CARRIER Unknown Provider LAB POCT ORDERABLES- MANUAL Performing Organization Address City/[facility] Co de Phone Number [facility] [address] [place] [address], [place] PCLX [facility] POC [address] [place] [address] * (TTE) 2D ECHO DOPPLER COLOR (09/24/2023 3:26 PM MERCHANDISE CARRIER) [facility] Ejection Fraction 64 MC CV EIMS Mid-Ascending [...] Region Laterality Modality Echocardiography 09/24/2023 1:57 PM MERCHANDISE CARRIER Impressions 09/24/2023 5:48 PM MERCHANDISE CARRIER Echocardiogram performed per dismissal echo protocol. Status [...] the Order-Level Documents. Narrative 09/24/2023 5:48 PM MERCHANDISE CARRIER For the complete report, see the Order-Level [...] disc not well seen. Mean aortic prosthetic ftftceky59 mmHg; EOA 2.1 cm2. Trivial (washing jets) [...] * (ABNORMAL) Glucose, POCT (09/24/2023 12:43 PM MERCHANDISE CARRIER) Glucose, POCT, B 216(H) 70 - 140 mg/dL 09/24/2023 12:51 PM MERCHANDISE CARRIER PCLX Site Capillary 09/24/2023 12:51 PM MERCHANDISE CARRIER PCLX Last Intake 3-4 hours 09/24/2023 12:51 PM MERCHANDISE CARRIER PCLX Blood 09/24/2023 12:4 3 PM MERCHANDISE CARRIER 09/24/2023 12:51 PM MERCHANDISE CARRIER Unknown Provider LAB POCT ORDERABLES- MANUAL Performing Organization Address City/[facility] Co de Phone Number [facility] [address] [place] [address], [facility] PCLX [facility] POC [address] [place] [address] * Glucose, POCT (09/24/2023 7:19 AM MERCHANDISE CARRIER) Glucose, POCT, B 138 70 - 140 mg/dL 09/24/2023 7:30 AM MERCHANDISE CARRIER PCLX Site Capillary 09/24/2023 7:30 AM MERCHANDISE CARRIER PCLX Last Intake 3-4 hours 09/24/2023 7:30 AM MERCHANDISE CARRIER PCLX Blood 09/24/2023 7:19 AM MERCHANDISE CARRIER 09/24/2023 7:30 AM MERCHANDISE CARRIER Unknown Provider LAB POCT ORDERABLES- MANUAL Performing Organization Address City/[facility] Co de Phone Number [facility] [address] [place] [address], [facility] PCLX [facility] POC [address] [place] [address] * (ABNORMAL) Basic Metabolic Panel (09/24/2023 6:49 AM MERCHANDISE CARRIER) Potassium, S 4.3 3.6 - 5.2 mmol/L 09/24/2023 8:25 AM MERCHANDISE CARRIER DTL Sodium, S 138 135 - 145 mmol/L 09/24/2023 8:25 AM MERCHANDISE CARRIER DTL Chloride, S 99 98 - 107 mmol/L 09/24/2023 8:25 AM MERCHANDISE CARRIER DTL Bicarbonate, S 29 22 - 29 mmol/L 09/24/2023 8:25 AM MERCHANDISE CARRIER DTL Anion Gap 10 7 - 15 09/24/2023 8:25 AM MERCHANDISE CARRIER DTL BUN (Blood Urea Nitrogen), S 36(H) 8 - 24 mg/dL 09/24/2023 8:25 AM MERCHANDISE CARRIER DTL Creatinine 2.48(H) 0.74 - 1.35 mg/dL 09/24/2023 8:25 AM MERCHANDISE CARRIER DTL Estimated GFR (eGFR) 27(L) >=60 mL/min/BSA 09/24/2023 8:25 AM MERCHANDISE CARRIER DTL Comment: Estimated GFR calculated using the 2020 CKD_EPI creatinine equation. Calcium, Total, S 8.3(L) 8.8 - 10.2 mg/dL 09/24/2023 8:25 AM MERCHANDISE CARRIER DTL Glucose, S 148(H) 70 - 140 mg/dL 09/24/2023 8:25 AM MERCHANDISE CARRIER DTL Blood (Blood, Venous) 09/24/2023 6:49 AM MERCHANDISE CARRIER 09/24/2023 8:01 AM MERCHANDISE CARRIER Laila Basurto P.A.-C. LAB BLOOD ADD -ON Performing Organization Address [facility] Co de Phone Number [facility] [address] [place], [place] [id number] [place] [address] [place] [address] * (ABNORMAL) Prothrombin Time (PT) (09/24/2023 6:49 AM MERCHANDISE CARRIER) Prothrombin Time, P 28.9(H) 9.4 - 12.5 sec 09/24/2023 8:17 AM MERCHANDISE CARRIER DTL INR 2.6 0.9 - 1.1 09/24/2023 8:17 AM MERCHANDISE CARRIER DTL Comment: ----ADDITIONAL INFORMATION---- Standard intensity warfarin therapeutic range: 2.0 to 3.0 ?? High intensity warfarin therapeutic range: 2.5 to 3.5 Blood (Blood, Venous) 09/24/2023 6:49 AM MERCHANDISE CARRIER 09/24/2023 7:44 AM MERCHANDISE CARRIER Anette Hair APRN, C.N.P., D.N.P. LAB B LOOD ADD-ON Performing Organization Address [facility] Co de Phone Number [facility] [address] [place], [place] [id number] [place] [address] [place] [address] * (ABNORMAL) CBC without Differential (09/24/2023 6:49 AM MERCHANDISE CARRIER) Hemoglobin 8.3(L) 13.2 - 16.6 g/dL 09/24/2023 8:01 AM MERCHANDISE CARRIER DTL Hematocrit 24.2(L) 38.3 - 48.6 % 09/24/2023 8:01 AM MERCHANDISE CARRIER DTL Erythrocytes 2.62(L) 4.35 - 5.65 x10(12)/L 09/24/2023 8:01 AM MERCHANDISE CARRIER DTL MCV 92.4 78.2 - 97.9 fL 09/24/2023 8:01 AM MERCHANDISE CARRIER DTL RBC Distrib Width 13.3 11.8 - 14.5 % 09/24/2023 8:01 AM MERCHANDISE CARRIER DTL Platelet Count 163 135 - 317 x10(9)/L 09/24/2023 8:01 AM MERCHANDISE CARRIER DTL Leukocytes 6.4 3.4 - 9.6 x10(9)/L 09/24/2023 8:01 AM MERCHANDISE CARRIER DTL Blood (Blood, Venous) 09/24/2023 6:49 AM MERCHANDISE CARRIER 09/24/2023 7:46 AM MERCHANDISE CARRIER Jenny Jay, B.Ch., B.A.O. LAB BLOOD ADD-ON [facility] [address] [place] [address], [facility] [address] [place] [address] * (ABNORMAL) Glucose, POCT (09/23/2023 9:38 PM MERCHANDISE CARRIER) Pathologist [facility] Glucose, POCT, B 186(H) 70 - 140 mg/dL 09/23/2023 9:51 PM MERCHANDISE CARRIER PCLX Site Capillary 09/23/2023 9:51 PM MERCHANDISE CARRIER PCLX Last Intake 1-2 hours 09/23/2023 9:51 PM MERCHANDISE CARRIER PCLX Blood 09/23/2023 9:38 PM MERCHANDISE CARRIER 09/23/2023 9:51 PM MERCHANDISE CARRIER Unknown Provider LAB POCT ORDERABLES- MANUAL [facility] [address] [place] [address], [facility] PCLX [facility] POC [address] [place] [address] * (ABNORMAL) Glucose, POCT (09/23/2023 5:02 PM MERCHANDISE CARRIER) Pathologist [facility] Glucose, POCT, B 190(H) 70 - 140 mg/dL 09/23/2023 5:17 PM MERCHANDISE CARRIER PCLX Site Capillary 09/23/2023 5:17 PM MERCHANDISE CARRIER PCLX Last Intake 3-4 hours 09/23/2023 5:17 PM MERCHANDISE CARRIER PCLX Blood 09/23/2023 5:02 PM MERCHANDISE CARRIER 09/23/2023 5:17 PM MERCHANDISE CARRIER Unknown Provider LAB POCT ORDERABLES- MANUAL [facility] [address] [place] [address], [facility] PCLX [facility] POC [address] [place] [address] * (ABNORMAL) Basic Metabolic Panel (09/23/2023 3:44 PM MERCHANDISE CARRIER) Pathologist [facility] Potassium, P 4.4 3.6 - 5.2 mmol/L 09/23/2023 4:06 PM MERCHANDISE CARRIER STMA Sodium, P 136 135 - 145 mmol/L 09/23/2023 4:06 PM MERCHANDISE CARRIER STMA Chloride, P 97(L) 98 - 107 mmol/L 09/23/2023 4:06 PM MERCHANDISE CARRIER STMA Bicarbonate, P 30(H) 22 - 29 mmol/L 09/23/2023 4:06 PM MERCHANDISE CARRIER STMA Anion Gap, P 9 7 - 15 09/23/2023 4:06 PM MERCHANDISE CARRIER STMA BUN (Blood Urea Nitrogen), P 42(H) 8 - 24 mg/dL 09/23/2023 4:06 PM MERCHANDISE CARRIER STMA Creatinine 2.54(H) 0.74 - 1.35 mg/dL 09/23/2023 4:06 PM MERCHANDISE CARRIER STMA Estimated GFR (eGFR) 26(L) >=60 mL/min/BSA 09/23/2023 4:06 PM MERCHANDISE CARRIER STMA Comment: Estimated GFR calculated using the 2020 CKD_EPI creatinine equation. Calcium, Total, P 8.9 8.8 - 10.2 mg/dL 09/23/2023 4:06 PM MERCHANDISE CARRIER STMA Glucose, P 213(H) 70 - 140 mg/dL 09/23/2023 4:06 PM MERCHANDISE CARRIER STMA Blood (Blood, Venous) 09/23/2023 3:44 PM MERCHANDISE CARRIER 09/23/2023 3:50 PM MERCHANDISE CARRIER Laila Basurto P.A.-C. LAB BLOOD ADD -ON Performing Organization Address City/[facility] Co de Phone Number [facility] [address] [place] [address], [facility] [address] [place] [address] * (ABNORMAL) Hemoglobin (09/23/2023 3:44 PM MERCHANDISE CARRIER) Hemoglobin 8.1(L) 13.2 - 16.6 g/dL 09/23/2023 3:52 PM MERCHANDISE CARRIER STMA Blood (Blood, Venous) 09/23/2023 3:44 PM MERCHANDISE CARRIER 09/23/2023 3:49 PM MERCHANDISE CARRIER Laila Basurto P.A.-C. LAB BLOOD ADD -ON Performing Organization Address [facility] Co de Phone Number [facility] [address] [place] [address], [facility] [address] [place] [address] * (ABNORMAL) Prothrombin Time (PT) (09/23/2023 3:44 PM MERCHANDISE CARRIER) Prothrombin Time, P 41.6(H) 9.4 - 12.5 sec 09/23/2023 3:56 PM MERCHANDISE CARRIER STMA INR 3.7 0.9 - 1.1 09/23/2023 3:56 PM MERCHANDISE CARRIER STMA Comment: ----ADDITIONAL INFORMATION---- Standard intensity warfarin therapeutic range: 2.0 to 3.0 ?? High intensity warfarin therapeutic range: 2.5 to 3.5 Blood (Blood, Venous) 09/23/2023 3:44 PM MERCHANDISE CARRIER 09/23/2023 3:49 PM MERCHANDISE CARRIER Laila Basurto P.A.-C. LAB BLOOD ADD -ON [facility] [address] [place] [address], [facility] STMA [facility] [address] [place] [address] * (ABNORMAL) Glucose, POCT (09/23/2023 12:19 PM MERCHANDISE CARRIER) Glucose, POCT, B 169(H) 70 - 140 mg/dL 09/23/2023 12:26 PM MERCHANDISE CARRIER PCLX Site Capillary 09/23/2023 12:26 PM MERCHANDISE CARRIER PCLX Last Intake 3-4 hours 09/23/2023 12:26 PM MERCHANDISE CARRIER PCLX Blood 09/23/2023 12:1 9 PM MERCHANDISE CARRIER 09/23/2023 12:26 PM MERCHANDISE CARRIER Unknown Provider LAB POCT ORDERABLES- MANUAL [facility] [address] [place] [address], [facility] PCLX [facility] POC [address] [place] [address] * DX Chest AP or PA and Lateral 2 Views (09/23/2023 8:44 AM MERCHANDISE CARRIER) Anatomical Region Laterality Modality Chest, Thoracic RST LOS, Tho racic ARZ LOS, Thoracic FLA LOS N/A Digital Radiography 09/23/2023 10:2 2 AM MERCHANDISE CARRIER Impressions 09/23/2023 10:23 AM MERCHANDISE CARRIER The right IJ vascular sheath has been removed since 09/20/2023. Improved aeration with decrease accentuation of the cardiovascular structures. Decrease vascular congestion. Likely similar small bilateral pleural effusions, allowing for differences in technique. Loop recorder, sternotomy, AVR, normal variant azygos lobe are again identified. Narrative 09/23/2023 10:23 AM MERCHANDISE CARRIER EXAM: ??DX CHEST AP OR PA AND [...] (ABNORMAL) Basic Metabolic Panel (09/23/2023 7:34 AM MERCHANDISE CARRIER) Pathologist [facility] Potassium, S 4.5 3.6 - 5.2 mmol/L 09/23/2023 8:46 AM MERCHANDISE CARRIER DTL Sodium, S 135 135 - 145 mmol/L 09/23/2023 8:46 AM MERCHANDISE CARRIER DTL Chloride, S 98 98 - 107 mmol/L 09/23/2023 8:46 AM MERCHANDISE CARRIER DTL Bicarbonate, S 29 22 - 29 mmol/L 09/23/2023 8:46 AM MERCHANDISE CARRIER DTL Anion Gap 8 7 - 15 09/23/2023 8:46 AM MERCHANDISE CARRIER DTL BUN (Blood Urea Nitrogen), S 39(H) 8 - 24 mg/dL 09/23/2023 8:46 AM MERCHANDISE CARRIER DTL Creatinine 2.54(H) 0.74 - 1.35 mg/dL 09/23/2023 8:46 AM MERCHANDISE CARRIER DTL Estimated GFR (eGFR) 26(L) >=60 mL/min/BSA 09/23/2023 8:46 AM MERCHANDISE CARRIER DTL Comment: Estimated GFR calculated using the 2020 CKD_EPI creatinine equation. Calcium, Total, S 8.3(L) 8.8 - 10.2 mg/dL 09/23/2023 8:46 AM MERCHANDISE CARRIER DTL Glucose, S 159(H) 70 - 140 mg/dL 09/23/2023 8:46 AM MERCHANDISE CARRIER DTL Blood (Blood, Venous) 09/23/2023 7:34 AM MERCHANDISE CARRIER 09/23/2023 8:25 AM MERCHANDISE CARRIER Laila Basurto P.A.-C. LAB BLOOD ADD -ON [facility] [address] [facility] [address] [place] [address] * (ABNORMAL) Prothrombin Time (PT) (09/23/2023 7:34 AM MERCHANDISE CARRIER) [facility] Prothrombin Time, P 35.5(H) 9.4 - 12.5 sec 09/23/2023 8:23 AM MERCHANDISE CARRIER DTL INR 3.2 0.9 - 1.1 09/23/2023 8:23 AM MERCHANDISE CARRIER DTL Comment: ----ADDITIONAL INFORMATION---- Standard intensity warfarin therapeutic range: 2.0 to 3.0 ?? High intensity warfarin therapeutic range: 2.5 to 3.5 Blood (Blood, Venous) 09/23/2023 7:34 AM MERCHANDISE CARRIER 09/23/2023 8:05 AM MERCHANDISE CARRIER Anette Hair APRN, C.N.P., D.N.P. LAB B LD ADD-ON [facility] [address] [place] [address] * (ABNORMAL) CBC without Differential (09/23/2023 7:34 AM MERCHANDISE CARRIER) [facility] Hemoglobin 8.2(L) 13.2 - 16.6 g/dL 09/23/2023 8:13 AM MERCHANDISE CARRIER DTL Hematocrit 24.2(L) 38.3 - 48.6 % 09/23/2023 8:13 AM MERCHANDISE CARRIER DTL Erythrocytes 2.67(L) 4.35 - 5.65 x10(12)/L 09/23/2023 8:13 AM MERCHANDISE CARRIER DTL MCV 90.6 78.2 - 97.9 fL 09/23/2023 8:13 AM MERCHANDISE CARRIER DTL RBC Distrib Width 13.2 11.8 - 14.5 % 09/23/2023 8:13 AM MERCHANDISE CARRIER DTL Platelet Count 147 135 - 317 x10(9)/L 09/23/2023 8:13 AM MERCHANDISE CARRIER DTL Leukocytes 8.3 3.4 - 9.6 x10(9)/L 09/23/2023 8:13 AM MERCHANDISE CARRIER DTL Blood (Blood, Venous) 09/23/2023 7:34 AM MERCHANDISE CARRIER 09/23/2023 8:04 AM MERCHANDISE CARRIER Jenny Jay, Lucille, B.A.O. LAB BLOOD ADD-ON Performing Organization Address City/[facility]/ZIP Co de Phone Number [facility] [address] [place] [address], [facility] DTL [facility] [address] [place] [address] * (ABNORMAL) Hepatic Function Panel (09/23/2023 7:31 AM MERCHANDISE CARRIER) Bilirubin, Total, S 0.5 0.0 - 1.2 mg/dL 09/23/2023 9:47 AM MERCHANDISE CARRIER DTL Bilirubin, Direct, S <0.2 0.0 - 0.3 mg/dL 09/23/2023 9:47 AM MERCHANDISE CARRIER DTL Aspartate Aminotransferase (AST), S 21 8 - 48 U/L 09/23/2023 9:47 AM MERCHANDISE CARRIER DTL Alanine Aminotransferase (ALT), S 9 7 - 55 U/L 09/23/2023 9:47 AM MERCHANDISE CARRIER DTL Alkaline Phosphatase, S 63 40 - 129 U/L 09/23/2023 9:47 AM MERCHANDISE CARRIER DTL Albumin, S 3.0(L) 3.5 - 5.0 g/dL 09/23/2023 9:47 AM MERCHANDISE CARRIER DTL Protein, Total, S 4.9(L) 6.3 - 7.9 g/dL 09/23/2023 9:47 AM MERCHANDISE CARRIER DTL Blood (Blood, Venous) 09/23/2023 7:31 AM MERCHANDISE CARRIER 09/23/2023 9:19 AM MERCHANDISE CARRIER Laila Basurto P.A.-C. LAB BLOOD ADD -ON Performing Organization Address City/[facility]/ZIP Co de Phone Number [facility] [address] [place] [address], [facility] DTL [facility] [address] [place] [address] * (ABNORMAL) Glucose, POCT (09/23/2023 7:24 AM MERCHANDISE CARRIER) Glucose, POCT, B 147(H) 70 - 140 mg/dL 09/23/2023 7:40 AM MERCHANDISE CARRIER PCLX Site Capillary 09/23/2023 7:40 AM MERCHANDISE CARRIER PCLX Last Intake 3-4 hours 09/23/2023 7:40 AM MERCHANDISE CARRIER PCLX Blood 09/23/2023 7:24 AM MERCHANDISE CARRIER 09/23/2023 7:40 AM MERCHANDISE CARRIER Unknown Provider LAB POCT ORDERABLES- MANUAL [facility] [address] [place] [address], [facility] PCLX [facility] [address] [place] [address] * (ABNORMAL) Basic Metabolic Panel (09/22/2023 11:14 PM MERCHANDISE CARRIER) Pathologist [facility] Potassium, P 4.4 3.6 - 5.2 mmol/L 09/22/2023 11:40 PM MERCHANDISE CARRIER STMA Sodium, P 134(L) 135 - 145 mmol/L 09/22/2023 11:40 PM MERCHANDISE CARRIER STMA Chloride, P 94(L) 98 - 107 mmol/L 09/22/2023 11:40 PM MERCHANDISE CARRIER STMA Bicarbonate, P 28 22 - 29 mmol/L 09/22/2023 11:40 PM MERCHANDISE CARRIER STMA Anion Gap, P 12 7 - 15 09/22/2023 11:40 PM MERCHANDISE CARRIER STMA BUN (Blood Urea Nitrogen), P 40(H) 8 - 24 mg/dL 09/22/2023 11:40 PM MERCHANDISE CARRIER STMA Creatinine 2.38(H) 0.74 - 1.35 mg/dL 09/22/2023 11:40 PM MERCHANDISE CARRIER STMA Estimated GFR (eGFR) 28(L) >=60 mL/min/BSA 09/22/2023 11:40 PM MERCHANDISE CARRIER STMA Comment: Estimated GFR calculated using the 2020 CKD_EPI creatinine equation. Calcium, Total, P 8.7(L) 8.8 - 10.2 mg/dL 09/22/2023 11:40 PM MERCHANDISE CARRIER STMA Glucose, P 146(H) 70 - 140 mg/dL 09/22/2023 11:40 PM MERCHANDISE CARRIER STMA Blood (Blood, Venous) 09/22/2023 11:14 PM MERCHANDISE CARRIER 09/22/2023 11:24 PM MERCHANDISE CARRIER Marcela Lee APRN, C.N.P., M.S.N. LAB BLOO D ADD-ON Performing Organization Address [facility]/ZIP Co de Phone Number [facility] [address] [facility] [address] [place] [address] * (ABNORMAL) CBC without Differential (09/22/2023 11:14 PM MERCHANDISE CARRIER) Pathologist [facility] Hemoglobin 8.6(L) 13.2 - 16.6 g/dL 09/22/2023 11:26 PM MERCHANDISE CARRIER STMA Hematocrit 25.7(L) 38.3 - 48.6 % 09/22/2023 11:26 PM MERCHANDISE CARRIER STMA Erythrocytes 2.89(L) 4.35 - 5.65 x10(12)/L 09/22/2023 11:26 PM MERCHANDISE CARRIER STMA MCV 88.9 78.2 - 97.9 fL 09/22/2023 11:26 PM MERCHANDISE CARRIER STMA RBC Distrib Width 13.2 11.8 - 14.5 % 09/22/2023 11:26 PM MERCHANDISE CARRIER STMA Platelet Count 146 135 - 317 x10(9)/L 09/22/2023 11:26 PM MERCHANDISE CARRIER STMA Leukocytes 9.3 3.4 - 9.6 x10(9)/L 09/22/2023 11:26 PM MERCHANDISE CARRIER STMA Blood (Blood, Venous) 09/22/2023 11:14 PM MERCHANDISE CARRIER 09/22/2023 11:24 PM MERCHANDISE CARRIER Radha Tesfaye APRNNGrant., M.S.N. LAB BLOO D ADD-ON Performing Organization Address City/[facility]/ZIP Co de Phone Number [facility] [address] [place] [address], [facility] STMA [facility] [address] [place] [address] * (ABNORMAL) Glucose, POCT (09/22/2023 9:29 PM MERCHANDISE CARRIER) Glucose, POCT, B 159(H) 70 - 140 mg/dL 09/22/2023 9:31 PM MERCHANDISE CARRIER PCLX Blood 09/22/2023 9:29 PM MERCHANDISE CARRIER 09/22/2023 9:32 PM MERCHANDISE CARRIER Unknown Provider LAB POCT ORDERABLES- MANUAL [facility] [address] [place] [address], [facility] PCLX [facility] POC [address] [place] [address] * Transfuse Red Blood Cells : (09/22/2023 4:21 PM MERCHANDISE CARRIER) Laila Hu.A.-C. BLOOD TRANSFU RAHUL ORDERABLES * Transfuse Red Blood Cells : , 1 Units (09/22/2023 4:21 PM MERCHANDISE CARRIER) Laila Basurto P.A.-C. BLOOD TRANSFU RAHUL ORDERABLES * (ABNORMAL) Glucose, POCT (09/22/2023 11:27 AM MERCHANDISE CARRIER) Glucose, POCT, B 192(H) 70 - 140 mg/dL 09/22/2023 11:36 AM MERCHANDISE CARRIER PCLX Site Capillary 09/22/2023 11:36 AM MERCHANDISE CARRIER PCLX Last Intake 1-2 hours 09/22/2023 11:36 AM MERCHANDISE CARRIER PCLX Blood 09/22/2023 11:2 7 AM MERCHANDISE CARRIER 09/22/2023 11:37 AM MERCHANDISE CARRIER Unknown Provider LAB POCT ORDERABLES- MANUAL [facility] [address] [place] [address], [facility] PCLX [facility] POC [address] [place] [address] * Glucose, POCT (09/22/2023 7:34 AM MERCHANDISE CARRIER) Glucose, POCT, B 133 70 - 140 mg/dL 09/22/2023 7:46 AM MERCHANDISE CARRIER PCLX Site Capillary 09/22/2023 7:46 AM MERCHANDISE CARRIER PCLX Last Intake 3-4 hours 09/22/2023 7:46 AM MERCHANDISE CARRIER PCLX Blood 09/22/2023 7:34 AM MERCHANDISE CARRIER 09/22/2023 7:46 AM MERCHANDISE CARRIER Unknown Provider LAB POCT ORDERABLES- MANUAL [facility]OC [facility] [address] [place] [address], [facility] PCLX [facility] POC [address] [place] [address] * (ABNORMAL) Basic Metabolic Panel (09/22/2023 7:04 AM MERCHANDISE CARRIER) Potassium, S 4.5 3.6 - 5.2 mmol/L 09/22/2023 8:18 AM MERCHANDISE CARRIER DTL Sodium, S 135 135 - 145 mmol/L 09/22/2023 8:18 AM MERCHANDISE CARRIER DTL Chloride, S 99 98 - 107 mmol/L 09/22/2023 8:18 AM MERCHANDISE CARRIER DTL Bicarbonate, S 28 22 - 29 mmol/L 09/22/2023 8:18 AM MERCHANDISE CARRIER DTL Anion Gap 8 7 - 15 09/22/2023 8:18 AM MERCHANDISE CARRIER DTL BUN (Blood Urea Nitrogen), S 37(H) 8 - 24 mg/dL 09/22/2023 8:18 AM MERCHANDISE CARRIER DTL Creatinine 2.38(H) 0.74 - 1.35 mg/dL 09/22/2023 8:18 AM MERCHANDISE CARRIER DTL Estimated GFR (eGFR) 28(L) >=60 mL/min/BSA 09/22/2023 8:18 AM MERCHANDISE CARRIER DTL Comment: Estimated GFR calculated using the 2020 CKD_EPI creatinine equation. Calcium, Total, S 8.5(L) 8.8 - 10.2 mg/dL 09/22/2023 8:18 AM MERCHANDISE CARRIER DTL Glucose, S 141(H) 70 - 140 mg/dL 09/22/2023 8:18 AM MERCHANDISE CARRIER DTL Blood (Blood, Venous) 09/22/2023 7:04 AM MERCHANDISE CARRIER 09/22/2023 7:58 AM MERCHANDISE CARRIER Laila Basurto P.A.-C. LAB BLOOD ADD -ON Performing Organization Address City/[facility] Co de Phone Number [facility] [address] [place], [place] [id number] [place] [address] [facility] [address] [place] [address] * (ABNORMAL) Prothrombin Time (PT) (09/22/2023 7:04 AM MERCHANDISE CARRIER) Prothrombin Time, P 16.7(H) 9.4 - 12.5 sec 09/22/2023 7:53 AM MERCHANDISE CARRIER DTL INR 1.5 0.9 - 1.1 09/22/2023 7:53 AM MERCHANDISE CARRIER DTL Comment: ----ADDITIONAL INFORMATION---- Standard intensity warfarin therapeutic range: 2.0 to 3.0 ?? High intensity warfarin therapeutic range: 2.5 to 3.5 Blood (Blood, Venous) 09/22/2023 7:04 AM MERCHANDISE CARRIER 09/22/2023 7:37 AM MERCHANDISE CARRIER Anette Hair APRN, C.N.P., D.N.P. LAB B LOOD ADD-ON Performing Organization Address [facility] de Phone Number [facility] [address] [place], [place] [address] [address] [place] [address] * (ABNORMAL) CBC without Differential (09/22/2023 7:04 AM MERCHANDISE CARRIER) Hemoglobin 7.3(L) 13.2 - 16.6 g/dL 09/22/2023 7:47 AM MERCHANDISE CARRIER DTL Hematocrit 21.0(L) 38.3 - 48.6 % 09/22/2023 7:47 AM MERCHANDISE CARRIER DTL Erythrocytes 2.36(L) 4.35 - 5.65 x10(12)/L 09/22/2023 7:47 AM MERCHANDISE CARRIER DTL MCV 89.0 78.2 - 97.9 fL 09/22/2023 7:47 AM MERCHANDISE CARRIER DTL RBC Distrib Width 13.1 11.8 - 14.5 % 09/22/2023 7:47 AM MERCHANDISE CARRIER DTL Platelet Count 129(L) 135 - 317 x10(9)/L 09/22/2023 8:40 AM MERCHANDISE CARRIER DTL Comment:Results confirmed by smear, no clumping or interference seen. Leukocytes 9.2 3.4 - 9.6 x10(9)/L 09/22/2023 8:40 AM MERCHANDISE CARRIER DTL Blood (Blood, Venous) 09/22/2023 7:04 AM MERCHANDISE CARRIER 09/22/2023 7:37 AM MERCHANDISE CARRIER Jenny Jay, B.Ch., B.A.O. LAB BLOOD ADD-ON Performing Organization Address City/[facility]/ZIP Co de Phone Number [facility] [address] [facility] [address] [place] [address] * Type and Screen (with Reflex Antibody ID) (09/22/2023 7:01 AM MERCHANDISE CARRIER) ABORh A Neg Not applicable 09/22/2023 2:10 PM MERCHANDISE CARRIER STRM Antibody Screen Negative Negative 09/22/2023 2:19 PM MERCHANDISE CARRIER STRM Type & Screen Expiration 09/25/2023 23:59 09/22/2023 2:10 PM MERCHANDISE CARRIER STRM Testing Location Mercedes DEFAULT 09/22/2023 1:41 PM MERCHANDISE CARRIER STRM Blood (Blood, Venous) 09/22/2023 7:01 AM MERCHANDISE CARRIER 09/22/2023 1:41 PM MERCHANDISE CARRIER Laila Basurto P.A.-C. LAB BLOOD BAN K TEST ORDERABLES Performing Organization Address [facility]/ZIP Co de Phone Number [facility] [address] [place] [address], [facility] STRM [facility] [address] [place] [address] * (ABNORMAL) Glucose, POCT (09/21/2023 10:52 PM MERCHANDISE CARRIER) Glucose, POCT, B 161(H) 70 - 140 mg/dL 09/21/2023 10:57 PM MERCHANDISE CARRIER PCLX Site Capillary 09/21/2023 10:57 PM MERCHANDISE CARRIER PCLX Last Intake 2-3 hours 09/21/2023 10:57 PM MERCHANDISE CARRIER PCLX Blood 09/21/2023 10:5 2 PM MERCHANDISE CARRIER 09/21/2023 10:57 PM MERCHANDISE CARRIER Unknown Provider LAB POCT ORDERABLES- MANUAL Performing Organization Address City/[facility] Co de Phone Number [facility] [address] [place] [address], [facility] PCLX [facility] POC [address] [place] [address] * (ABNORMAL) Glucose, POCT (09/21/2023 7:07 PM MERCHANDISE CARRIER) Glucose, POCT, B 141(H) 70 - 140 mg/dL 09/21/2023 7:20 PM MERCHANDISE CARRIER PCLX Site Capillary 09/21/2023 7:20 PM MERCHANDISE CARRIER PCLX Last Intake <1 hour 09/21/2023 7:20 PM MERCHANDISE CARRIER PCLX Blood 09/21/2023 7:07 PM MERCHANDISE CARRIER 09/21/2023 7:20 PM MERCHANDISE CARRIER Unknown Provider LAB POCT ORDERABLES- MANUAL Performing Organization Address City/[facility] Co de Phone Number [facility] [address] [place] [address], [place] PCLX [facility] P[facility] [address] [place] [address] * (ABNORMAL) Glucose, POCT (09/21/2023 11:27 AM MERCHANDISE CARRIER) Glucose, POCT, B 190(H) 70 - 140 mg/dL 09/21/2023 11:29 AM MERCHANDISE CARRIER PCLX Site ARTLINE 09/21/2023 11:29 AM MERCHANDISE CARRIER PCLX Blood 09/21/2023 11:2 7 AM MERCHANDISE CARRIER 09/21/2023 11:29 AM MERCHANDISE CARRIER Unknown Provider LAB POCT ORDERABLES- MANUAL Performing Organization Address [facility] Co de Phone Number [facility] [address] [place] [address], [facility] PCLX [facility] POC [address] [place] [address] * (ABNORMAL) Glucose, POCT (09/21/2023 8:50 AM MERCHANDISE CARRIER) Glucose, POCT, B 145(H) 70 - 140 mg/dL 09/21/2023 8:52 AM MERCHANDISE CARRIER PCLX Site ARTLINE 09/21/2023 8:52 AM MERCHANDISE CARRIER PCLX Blood 09/21/2023 8:50 AM MERCHANDISE CARRIER 09/21/2023 8:52 AM MERCHANDISE CARRIER Unknown Provider LAB POCT ORDERABLES- MANUAL Performing Organization Address [facility] Co de Phone Number [facility] [address] [place] [address], [facility] PCLX [facility] POC [address] [place] [address] * (ABNORMAL) Prothrombin Time (PT) (09/21/2023 7:47 AM MERCHANDISE CARRIER) Prothrombin Time, P 13.8(H) 9.4 - 12.5 sec 09/21/2023 7:58 AM MERCHANDISE CARRIER STMA INR 1.3 0.9 - 1.1 09/21/2023 7:58 AM MERCHANDISE CARRIER STMA Comment: ----ADDITIONAL INFORMATION---- Standard intensity warfarin therapeutic range: 2.0 to 3.0 ?? High intensity warfarin therapeutic range: 2.5 to 3.5 Blood (Blood, Venous) 09/21/2023 7:47 AM MERCHANDISE CARRIER 09/21/2023 7:51 AM MERCHANDISE CARRIER Anette Hair APRN, C.N.P., D.N.P. LAB B LOOD ADD-ON Performing Organization Address City/[facility]/ZIP Co de Phone Number [facility] [address] [place] [address], [facility] STMA [facility] [address] [place] [address] * Patient Status (09/21/2023 6:35 AM MERCHANDISE CARRIER) FIO2 0.21 0.21=AIR 09/21/2023 6:39 AM MERCHANDISE CARRIER STMA Spont. breaths/min 18 09/21/2023 6:39 AM MERCHANDISE CARRIER STMA Blood 09/21/2023 6:35 AM MERCHANDISE CARRIER 09/21/2023 6:39 AM MERCHANDISE CARRIER Bryce Wills M.D. LAB BLOOD NON ADD-ON [facility] [address] [place] [address], [facility] STMA [facility] [address] [place] [address] * (ABNORMAL) Blood Gas with Coox, Arterial (09/21/2023 6:35 AM MERCHANDISE CARRIER) pO2 67(L) 83 - 108 mm Hg 09/21/2023 6:41 AM MERCHANDISE CARRIER STMA pCO2 46 35 - 48 mm Hg 09/21/2023 6:41 AM MERCHANDISE CARRIER STMA pH 7.41 7.35 - 7.45 pH 09/21/2023 6:41 AM MERCHANDISE CARRIER STMA Base Excess 4(H) -2 - 3 mmol/L 09/21/2023 6:41 AM MERCHANDISE CARRIER STMA HCO3 29(H) 22 - 26 mmol/L 09/21/2023 6:41 AM MERCHANDISE CARRIER STMA Hemoglobin, Venous 8.2(L) 13.2 - 16.6 g/dL 09/21/2023 6:41 AM MERCHANDISE CARRIER STMA O2Hb 92.5(L) 94.0 - 98.0 % 09/21/2023 6:41 AM MERCHANDISE CARRIER STMA COHb 2.0 <3.0 % 09/21/2023 6:42 AM MERCHANDISE CARRIER STMA MetHb <1.0 <1.5 % 09/21/2023 6:41 AM MERCHANDISE CARRIER STMA CtO2 10.8(L) 18.0 - 21.0 vol % 09/21/2023 6:42 AM MERCHANDISE CARRIER STMA Arterial Sample Site Art Line 09/21/2023 6:41 AM MERCHANDISE CARRIER STMA Comment:Mina's test not don e. Blood (Blood, Arterial) 09/21/2023 6:35 AM MERCHANDISE CARRIER 09/21/2023 6:39 AM MERCHANDISE CARRIER Bryce Wills M.D. LAB BLOOD NON ADD-ON Performing Organization Address City/[facility]/ZIP Co de Phone Number [facility] [address] [place] [address], [facility] STMA [facility] [address] [place] [address] * (ABNORMAL) Glucose, POCT (09/21/2023 6:31 AM MERCHANDISE CARRIER) Glucose, POCT, B 164(H) 70 - 140 mg/dL 09/21/2023 6:32 AM MERCHANDISE CARRIER PCLX Site ARTLINE 09/21/2023 6:32 AM MERCHANDISE CARRIER PCLX Blood 09/21/2023 6:31 AM MERCHANDISE CARRIER 09/21/2023 6:32 AM MERCHANDISE CARRIER Unknown Provider LAB POCT ORDERABLES- MANUAL Performing Organization Address [facility] Co de Phone Number [facility] [address] [place] [address], [facility] PCLX [facility] [address] [place] [address] * (ABNORMAL) Basic Metabolic Panel (09/21/2023 5:11 AM MERCHANDISE CARRIER) Potassium, P 5.1 3.6 - 5.2 mmol/L 09/21/2023 5:45 AM MERCHANDISE CARRIER STMA Sodium, P 135 135 - 145 mmol/L 09/21/2023 5:45 AM MERCHANDISE CARRIER STMA Chloride, P 101 98 - 107 mmol/L 09/21/2023 5:45 AM MERCHANDISE CARRIER STMA Bicarbonate, P 27 22 - 29 mmol/L 09/21/2023 5:45 AM MERCHANDISE CARRIER STMA Anion Gap, P 7 7 - 15 09/21/2023 5:45 AM MERCHANDISE CARRIER STMA BUN (Blood Urea Nitrogen), P 33(H) 8 - 24 mg/dL 09/21/2023 5:45 AM MERCHANDISE CARRIER STMA Creatinine 2.39(H) 0.74 - 1.35 mg/dL 09/21/2023 5:45 AM MERCHANDISE CARRIER STMA Estimated GFR (eGFR) 28(L) >=60 mL/min/BSA 09/21/2023 5:45 AM MERCHANDISE CARRIER STMA Comment: Estimated GFR calculated using the 2020 CKD_EPI creatinine equation. Calcium, Total, P 8.9 8.8 - 10.2 mg/dL 09/21/2023 5:45 AM MERCHANDISE CARRIER STMA Glucose, P 166(H) 70 - 140 mg/dL 09/21/2023 5:45 AM MERCHANDISE CARRIER STMA Blood (Blood, Venous) 09/21/2023 5:11 AM MERCHANDISE CARRIER 09/21/2023 5:25 AM MERCHANDISE CARRIER Enmanuel Edward P.A.-C. LAB BLOOD ADD-ON Performing Organization Address City/[facility]/ZIP Co de Phone Number [facility] [address] [place] [address] * (ABNORMAL) Phosphorus Inorganic (09/21/2023 5:11 AM MERCHANDISE CARRIER) Phosphorus (Inorganic), S 5.4(H) 2.5 - 4.5 mg/dL 09/21/2023 6:03 AM MERCHANDISE CARRIER DTL Blood (Blood, Venous) 09/21/2023 5:11 AM MERCHANDISE CARRIER 09/21/2023 5:50 AM MERCHANDISE CARRIER Enmanuel Edward P.A.-C. LAB BLOOD ADD-ON [facility] [address] [place] [address] * (ABNORMAL) Magnesium (09/21/2023 5:11 AM MERCHANDISE CARRIER) Magnesium, S 2.4(H) 1.7 - 2.3 mg/dL 09/21/2023 6:03 AM MERCHANDISE CARRIER DTL Blood (Blood, Venous) 09/21/2023 5:11 AM MERCHANDISE CARRIER 09/21/2023 5:50 AM MERCHANDISE CARRIER Enmanuel Edward P.A.-C. LAB BLOOD ADD-ON Performing Organization Address City/[facility]/ZIP Co de Phone Number [facility] [address] [place] [address], [facility] [address] [address] * (ABNORMAL) CBC without Differential (09/21/2023 5:11 AM MERCHANDISE CARRIER) Pathologist [facility] Hemoglobin 8.1(L) 13.2 - 16.6 g/dL 09/21/2023 6:04 AM MERCHANDISE CARRIER DTL Hematocrit 23.3(L) 38.3 - 48.6 % 09/21/2023 6:04 AM MERCHANDISE CARRIER DTL Erythrocytes 2.64(L) 4.35 - 5.65 x10(12)/L 09/21/2023 6:04 AM MERCHANDISE CARRIER DTL MCV 88.3 78.2 - 97.9 fL 09/21/2023 6:04 AM MERCHANDISE CARRIER DTL RBC Distrib Width 13.8 11.8 - 14.5 % 09/21/2023 6:04 AM MERCHANDISE CARRIER DTL Platelet Count 139 135 - 317 x10(9)/L 09/21/2023 6:04 AM MERCHANDISE CARRIER DTL Leukocytes 12.5(H) 3.4 - 9.6 x10(9)/L 09/21/2023 6:04 AM MERCHANDISE CARRIER DTL Blood (Blood, Venous) 09/21/2023 5:11 AM MERCHANDISE CARRIER 09/21/2023 5:40 AM MERCHANDISE CARRIER Jenny Jay, BJarrettCh., B.A.O. LAB BLOOD ADD-ON [facility] [address] [place] [address], [facility] [address] [place] [address] * (ABNORMAL) Basic Metabolic Panel (09/21/2023 12:21 AM MERCHANDISE CARRIER) Pathologist [facility] Potassium, P 5.3(H) 3.6 - 5.2 mmol/L 09/21/2023 1:08 AM MERCHANDISE CARRIER DTL Sodium, P 135 135 - 145 mmol/L 09/21/2023 1:08 AM MERCHANDISE CARRIER DTL Chloride, P 102 98 - 107 mmol/L 09/21/2023 1:08 AM MERCHANDISE CARRIER DTL Bicarbonate, P 25 22 - 29 mmol/L 09/21/2023 1:08 AM MERCHANDISE CARRIER DTL Anion Gap, P 8 7 - 15 09/21/2023 1:08 AM MERCHANDISE CARRIER DTL BUN (Blood Urea Nitrogen), P 30(H) 8 - 24 mg/dL 09/21/2023 1:08 AM MERCHANDISE CARRIER DTL Creatinine 2.42(H) 0.74 - 1.35 mg/dL 09/21/2023 1:08 AM MERCHANDISE CARRIER DTL Estimated GFR (eGFR) 28(L) >=60 mL/min/BSA 09/21/2023 1:08 AM MERCHANDISE CARRIER DTL Comment: Estimated GFR calculated using the 2020 CKD_EPI creatinine equation. Calcium, Total, P 8.9 8.8 - 10.2 mg/dL 09/21/2023 1:08 AM MERCHANDISE CARRIER DTL Glucose, P 170(H) 70 - 140 mg/dL 09/21/2023 1:08 AM MERCHANDISE CARRIER DTL Blood (Blood, Venous) 09/21/2023 12:21 AM MERCHANDISE CARRIER 09/21/2023 12:54 AM MERCHANDISE CARRIER Enmanuel Edward P.A.-C. LAB BLOOD ADD-ON [facility] [address] [place] [address], [facility] [address] [place] [address] * (ABNORMAL) Glucose, POCT (09/20/2023 8:33 PM MERCHANDISE CARRIER) Pathologist [facility] Glucose, POCT, B 196(H) 70 - 140 mg/dL 09/20/2023 8:39 PM MERCHANDISE CARRIER PCLX Blood 09/20/2023 8:33 PM MERCHANDISE CARRIER 09/20/2023 8:39 PM MERCHANDISE CARRIER Unknown Provider LAB POCT ORDERABLES- MANUAL Performing Organization Address City/[facility]/ZIP Co de Phone Number [facility] [address] [place] [address], [facility] PCLX [facility] [address] [place] [address] * Potassium (09/20/2023 8:33 PM MERCHANDISE CARRIER) Potassium, P 5.0 3.6 - 5.2 mmol/L 09/20/2023 8:56 PM MERCHANDISE CARRIER STMA Blood (Blood, Venous) 09/20/2023 8:33 PM MERCHANDISE CARRIER 09/20/2023 8:38 PM MERCHANDISE CARRIER Yenifer Mercado P.A.-C. LAB BLOOD ADD -ON Performing Organization Address City/[facility]/ZIP Co de Phone Number [facility] [address] [place] [address], [facility] STMA [facility] [address] [place] [address] * (ABNORMAL) Glucose, POCT (09/20/2023 4:31 PM MERCHANDISE CARRIER) Glucose, POCT, B 182(H) 70 - 140 mg/dL 09/20/2023 4:32 PM MERCHANDISE CARRIER PCLX Site ARTLINE 09/20/2023 4:32 PM MERCHANDISE CARRIER PCLX Blood 09/20/2023 4:31 PM MERCHANDISE CARRIER 09/20/2023 4:32 PM MERCHANDISE CARRIER Unknown Provider LAB POCT ORDERABLES- MANUAL Performing Organization Address City/[facility]/ZIP Co de Phone Number [facility] [address] [place] [address], [facility] PCLX [facility] POC [address] [place] [address] * (ABNORMAL) Basic Metabolic Panel (09/20/2023 4:27 PM MERCHANDISE CARRIER) Potassium, P 5.5(H) 3.6 - 5.2 mmol/L 09/20/2023 5:03 PM MERCHANDISE CARRIER STMA Sodium, P 136 135 - 145 mmol/L 09/20/2023 5:03 PM MERCHANDISE CARRIER STMA Chloride, P 102 98 - 107 mmol/L 09/20/2023 5:03 PM MERCHANDISE CARRIER STMA Bicarbonate, P 26 22 - 29 mmol/L 09/20/2023 5:03 PM MERCHANDISE CARRIER STMA Anion Gap, P 8 7 - 15 09/20/2023 5:03 PM MERCHANDISE CARRIER STMA BUN (Blood Urea Nitrogen), P 28(H) 8 - 24 mg/dL 09/20/2023 5:03 PM MERCHANDISE CARRIER STMA Creatinine 2.24(H) 0.74 - 1.35 mg/dL 09/20/2023 5:03 PM MERCHANDISE CARRIER STMA Estimated GFR (eGFR) 31(L) >=60 mL/min/BSA 09/20/2023 5:03 PM MERCHANDISE CARRIER STMA Comment: Estimated GFR calculated using the 2020 CKD_EPI creatinine equation. Calcium, Total, P 9.0 8.8 - 10.2 mg/dL 09/20/2023 5:03 PM MERCHANDISE CARRIER STMA Glucose, P 193(H) 70 - 140 mg/dL 09/20/2023 5:03 PM MERCHANDISE CARRIER STMA Blood (Blood, Venous) 09/20/2023 4:27 PM MERCHANDISE CARRIER 09/20/2023 4:36 PM MERCHANDISE CARRIER Yenifer Mercado P.A.-C. [place] [address], [facility] [address] [place] [address] * (ABNORMAL) Glucose, POCT (09/20/2023 11:51 AM MERCHANDISE CARRIER) Glucose, POCT, B 205(H) 70 - 140 mg/dL 09/20/2023 11:53 AM MERCHANDISE CARRIER PCLX Site ARTLINE 09/20/2023 11:53 AM MERCHANDISE CARRIER PCLX Last Intake 1-2 hours 09/20/2023 11:53 AM MERCHANDISE CARRIER PCLX Blood 09/20/2023 11:5 1 AM MERCHANDISE CARRIER 09/20/2023 11:53 AM MERCHANDISE CARRIER Unknown Provider LAB POCT ORDERABLES- MANUAL [facility] [address] [place] [address], [facility] PCLX [facility] [address] [place] [address] * (ABNORMAL) Basic Metabolic Panel (09/20/2023 11:51 AM MERCHANDISE CARRIER) Potassium, P 5.4(H) 3.6 - 5.2 mmol/L 09/20/2023 12:20 PM MERCHANDISE CARRIER STMA Sodium, P 137 135 - 145 mmol/L 09/20/2023 12:20 PM MERCHANDISE CARRIER STMA Chloride, P 103 98 - 107 mmol/L 09/20/2023 12:20 PM MERCHANDISE CARRIER STMA Bicarbonate, P 23 22 - 29 mmol/L 09/20/2023 12:20 PM MERCHANDISE CARRIER STMA Anion Gap, P 11 7 - 15 09/20/2023 12:20 PM MERCHANDISE CARRIER STMA BUN (Blood Urea Nitrogen), P 27(H) 8 - 24 mg/dL 09/20/2023 12:20 PM MERCHANDISE CARRIER STMA Creatinine 2.12(H) 0.74 - 1.35 mg/dL 09/20/2023 12:20 PM MERCHANDISE CARRIER STMA Estimated GFR (eGFR) 33(L) >=60 mL/min/BSA 09/20/2023 12:20 PM MERCHANDISE CARRIER STMA Comment: Estimated GFR calculated using the 2020 CKD_EPI creatinine equation. Calcium, Total, P 9.2 8.8 - 10.2 mg/dL 09/20/2023 12:20 PM MERCHANDISE CARRIER STMA Glucose, P 230(H) 70 - 140 mg/dL 09/20/2023 12:20 PM MERCHANDISE CARRIER STMA Blood (Blood, Venous) 09/20/2023 11:51 AM MERCHANDISE CARRIER 09/20/2023 12:00 PM MERCHANDISE CARRIER Lobito Melgar APRN, C.N.P., M.S.N. L AB BLOOD ADD-ON [facility] [address] [place] [address], [facility] STMA [facility] [address] [place] [address] * (ABNORMAL) Glucose, POCT (09/20/2023 6:30 AM MERCHANDISE CARRIER) Glucose, POCT, B 169(H) 70 - 140 mg/dL 09/20/2023 6:32 AM MERCHANDISE CARRIER PCLX Blood 09/20/2023 6:30 AM MERCHANDISE CARRIER 09/20/2023 6:33 AM MERCHANDISE CARRIER Unknown Provider LAB POCT ORDERABLES- MANUAL Performing Organization Address City/[facility]/ZIP Co de Phone Number [facility] [address] [place] [address], [facility] PCLX [facility] POC [address] [place] [address] * Lactate, Whole Blood (09/20/2023 4:11 AM MERCHANDISE CARRIER) Lactate, B 1.5 0.5 - 2.2 mmol/L 09/20/2023 4:18 AM MERCHANDISE CARRIER STMA Blood (Blood, Arterial) 09/20/2023 4:11 AM MERCHANDISE CARRIER 09/20/2023 4:15 AM MERCHANDISE CARRIER Lobito Melgar APRN, C.N.P., M.S.N. L AB BLOOD NON ADD-ON Performing Organization Address City/[facility]/ZIP Co de Phone Number [facility] [address] [place] [address], [facility] STMA [facility] [address] [place] [address] * Patient Status (09/20/2023 4:11 AM MERCHANDISE CARRIER) O2 Flow 2.0 L/min 09/20/2023 4:15 AM MERCHANDISE CARRIER STMA Device NC 09/20/2023 4:15 AM MERCHANDISE CARRIER STMA Spont. breaths/min 14 09/20/2023 4:15 AM MERCHANDISE CARRIER STMA Blood 09/20/2023 4:11 AM MERCHANDISE CARRIER 09/20/2023 4:15 AM MERCHANDISE CARRIER Jenny Jay, B.Ch., B.A.O. LAB BLOOD NON ADD-ON Performing Organization Address City/[facility]/ZIP Co de Phone Number [facility] [address] [place], [place] [address] [place] [address] [address] [place] [address] * (ABNORMAL) Blood Gas without Coox, Arterial (09/20/2023 4:11 AM MERCHANDISE CARRIER) pO2 79(L) 83 - 108 mm Hg 09/20/2023 4:18 AM MERCHANDISE CARRIER STMA pCO2 43 35 - 48 mm Hg 09/20/2023 4:18 AM MERCHANDISE CARRIER STMA pH 7.37 7.35 - 7.45 pH 09/20/2023 4:18 AM MERCHANDISE CARRIER STMA Base Excess 0 -2 - 3 mmol/L 09/20/2023 4:18 AM MERCHANDISE CARRIER STMA HCO3 25 22 - 26 mmol/L 09/20/2023 4:18 AM MERCHANDISE CARRIER STMA Arterial Sample Site Art Line 09/20/2023 4:18 AM MERCHANDISE CARRIER STMA Comment:Mina's test not don e. Blood (Blood, Arterial) 09/20/2023 4:11 AM MERCHANDISE CARRIER 09/20/2023 4:15 AM MERCHANDISE CARRIER Jenny Jay, B.Ch., B.A.O. LAB BLOOD NON ADD-ON [facility] [address] [place], [place] [address] [place] [address] [address] [place] [address] * (ABNORMAL) CBC without Differential (09/20/2023 4:09 AM MERCHANDISE CARRIER) Hemoglobin 9.1(L) 13.2 - 16.6 g/dL 09/20/2023 4:51 AM MERCHANDISE CARRIER DTL Hematocrit 25.8(L) 38.3 - 48.6 % 09/20/2023 4:51 AM MERCHANDISE CARRIER DTL Erythrocytes 2.99(L) 4.35 - 5.65 x10(12)/L 09/20/2023 4:51 AM MERCHANDISE CARRIER DTL MCV 86.3 78.2 - 97.9 fL 09/20/2023 4:51 AM MERCHANDISE CARRIER DTL RBC Distrib Width 13.6 11.8 - 14.5 % 09/20/2023 4:51 AM MERCHANDISE CARRIER DTL Platelet Count 179 135 - 317 x10(9)/L 09/20/2023 4:51 AM MERCHANDISE CARRIER DTL Leukocytes 11.3(H) 3.4 - 9.6 x10(9)/L 09/20/2023 4:51 AM MERCHANDISE CARRIER DTL Blood (Blood, Venous) 09/20/2023 4:09 AM MERCHANDISE CARRIER 09/20/2023 4:42 AM MERCHANDISE CARRIER Jenny Jay, B.Betty., B.A.O. LAB BLOOD ADD-ON [facility] [address] [place] [address], [facility] [address] [place] [address] * (ABNORMAL) Basic Metabolic Panel (09/20/2023 4:09 AM MERCHANDISE CARRIER) Potassium, S 5.2 3.6 - 5.2 mmol/L 09/20/2023 5:12 AM MERCHANDISE CARRIER DTL Sodium, S 142 135 - 145 mmol/L 09/20/2023 5:12 AM MERCHANDISE CARRIER DTL Chloride, S 107 98 - 107 mmol/L 09/20/2023 5:12 AM MERCHANDISE CARRIER DTL Bicarbonate, S 23 22 - 29 mmol/L 09/20/2023 5:12 AM MERCHANDISE CARRIER DTL Anion Gap 12 7 - 15 09/20/2023 5:12 AM MERCHANDISE CARRIER DTL BUN (Blood Urea Nitrogen), S 23 8 - 24 mg/dL 09/20/2023 5:12 AM MERCHANDISE CARRIER DTL Creatinine 1.88(H) 0.74 - 1.35 mg/dL 09/20/2023 5:12 AM MERCHANDISE CARRIER DTL Estimated GFR (eGFR) 38(L) >=60 mL/min/BSA 09/20/2023 5:12 AM MERCHANDISE CARRIER DTL Comment: Estimated GFR calculated using the 2020 CKD_EPI creatinine equation. Calcium, Total, S 9.6 8.8 - 10.2 mg/dL 09/20/2023 5:12 AM MERCHANDISE CARRIER DTL Glucose, S 162(H) 70 - 140 mg/dL 09/20/2023 5:12 AM MERCHANDISE CARRIER DTL Blood (Blood, Venous) 09/20/2023 4:09 AM MERCHANDISE CARRIER 09/20/2023 4:57 AM MERCHANDISE CARRIER Raven BlackCh., B.A.O. LAB BLOOD ADD-ON Performing Organization Address City/[facility] Co de Phone Number [facility] [address] [place] [address] * APTT (Activated Partial Thromboplastin Time) (09/20/2023 4:09 AM MERCHANDISE CARRIER) Activated Partial Thrombopl Time, P 26 25 - 37 sec 09/20/2023 5:19 AM MERCHANDISE CARRIER DTL Blood (Blood, Venous) 09/20/2023 4:09 AM MERCHANDISE CARRIER 09/20/2023 4:43 AM MERCHANDISE CARRIER Raven BlackCh., B.A.O. LAB BLOOD ADD-ON Performing Organization Address City/[facility] Co de Phone Number [facility] [address] [place] [address] * Prothrombin Time (PT) (09/20/2023 4:09 AM MERCHANDISE CARRIER) Prothrombin Time, P 12.2 9.4 - 12.5 sec 09/20/2023 5:19 AM MERCHANDISE CARRIER DTL INR 1.1 0.9 - 1.1 09/20/2023 5:19 AM MERCHANDISE CARRIER DTL Comment: ----ADDITIONAL INFORMATION---- Standard intensity warfarin therapeutic range: 2.0 to 3.0 ?? High intensity warfarin therapeutic range: 2.5 to 3.5 Blood (Blood, Venous) 09/20/2023 4:09 AM MERCHANDISE CARRIER 09/20/2023 4:43 AM MERCHANDISE CARRIER Raven BlackCh., B.A.O. LAB BLOOD ADD-ON Performing Organization Address City/[facility] Co de Phone Number [facility] [address] [place] [address] * (ABNORMAL) Magnesium (09/20/2023 4:09 AM MERCHANDISE CARRIER) Magnesium, S 2.7(H) 1.7 - 2.3 mg/dL 09/20/2023 5:12 AM MERCHANDISE CARRIER DT Blood (Blood, Venous) 09/20/2023 4:09 AM MERCHANDISE CARRIER 09/20/2023 4:57 AM MERCHANDISE CARRIER Jenny Jay, Nicky.Ch., B.A.O. LAB BLOOD ADD-ON Performing Organization Address [facility] Co de Phone Number [facility] [address] [place], [place] [address] [place] [address] * DX Chest Portable with AM Rounds 1 View (09/20/2023 3:33 AM MERCHANDISE CARRIER) Anatomical Region Laterality Modality Chest, Thoracic RST LOS, Tho racic ARZ LOS, Thoracic FLA LOS N/A Digital Radiography 09/20/2023 5:18 AM MERCHANDISE CARRIER Impressions 09/20/2023 5:20 AM MERCHANDISE CARRIER Compared to 09/19/2023. Extubation. Removal of right IJ SGC, sheath remains. Slightly decreased lung volumes. No other significant change. Pulmonary vascular congestion. Bibasilar atelectasis. No definite pneumothorax. Trace pneumomediastinum. Enlarged cardiac silhouette. Retrocardiac atelectasis/consolidation. Azygous fissure. Sternotomy. Mediastinal clips and drains. Loop recorder. Narrative 09/20/2023 5:20 AM MERCHANDISE CARRIER EXAM: ??DX CHEST PORTABLE WITH AM ROUNDS [...] Risk Score, Random, Urine (09/20/2023 3:24 AM MERCHANDISE CARRIER) TIMP2/IGFBP7 MANJEET Risk Score, U 0.45(H) <0.30 (ng/mL)(2) /1000 09/20/2023 4:12 AM MERCHANDISE CARRIER [facility] Comment: ----ADDITIONAL INFORMATION---- <0.30= <0.30 is considered low risk for acute kidney injury. 0.30-2.00= 0.30-2.00 indicates increased risk for acute kidney injury. >2.00= >2.00 indicates high risk for acute kidney injury. Urine (Urine, Midstream) 09/20/2023 3:24 AM MERCHANDISE CARRIER 09/20/2023 3:24 AM MERCHANDISE CARRIER Jenny Jay B.Ch., B.A.O. LAB URINE ORDERABLES [facility] [address] [place] [address], [place] STMA [facility] [address] [place] [address] * Glucose, POCT (09/20/2023 1:17 AM MERCHANDISE CARRIER) Glucose, POCT, B 136 70 - 140 mg/dL 09/20/2023 1:19 AM MERCHANDISE CARRIER [facility] Site ARTLINE 09/20/2023 1:19 AM MERCHANDISE CARRIER [facility] Blood 09/20/2023 1:17 AM MERCHANDISE CARRIER 09/20/2023 1:19 AM MERCHANDISE CARRIER Unknown Provider LAB POCT ORDERABLES- MANUAL POC [facility] [address] [place] [address], [place] PCLX [facility] POC [address] [place] [address] * Glucose, POCT (09/19/2023 11:58 PM MERCHANDISE CARRIER) Glucose, POCT, B 133 70 - 140 mg/dL 09/19/2023 11:59 PM MERCHANDISE CARRIER [facility] Site ARTLINE 09/19/2023 11:59 PM MERCHANDISE CARRIER [facility] Blood 09/19/2023 11:5 8 PM MERCHANDISE CARRIER 09/19/2023 11:59 PM MERCHANDISE CARRIER Unknown Provider LAB POCT ORDERABLES- MANUAL Performing Organization Address City/[facility]/ZIP Co de Phone Number POC [facility] [address] [place] [address], [place] PCLX [facility] POC [address] [place] [address] * (ABNORMAL) Glucose, POCT (09/19/2023 11:20 PM MERCHANDISE CARRIER) Glucose, POCT, B 148(H) 70 - 140 mg/dL 09/19/2023 11:22 PM MERCHANDISE CARRIER PCL[facility] Site ARTLINE 09/19/2023 11:22 PM MERCHANDISE CARRIER [facility] Blood 09/19/2023 11:2 0 PM MERCHANDISE CARRIER 09/19/2023 11:22 PM MERCHANDISE CARRIER Unknown Provider LAB POCT ORDERABLES- MANUAL Performing Organization Address City/State/[facility] Co de Phone Number POC [facility] [address] [place] [address], [facility] PCLX [facility] [address] [place] [address] * (ABNORMAL) Lactate, Whole Blood (09/19/2023 10:58 PM MERCHANDISE CARRIER) Lactate, B 2.6(H) 0.5 - 2.2 mmol/L 09/19/2023 11:05 PM MERCHANDISE CARRIER [facility] Blood (Blood, Arterial) 09/19/2023 10:58 PM MERCHANDISE CARRIER 09/19/2023 11:04 PM MERCHANDISE CARRIER Lobito Melgar APRN C.N.P., M.S.N. L AB BLOOD NON ADD-ON Performing Organization Address City/[facility] Co de Phone Number [facility] [address] [place] [address], [facility] STMA [facility] [address] [place] [address] * (ABNORMAL) Glucose, POCT (09/19/2023 10:27 PM MERCHANDISE CARRIER) Glucose, POCT, B 160(H) 70 - 140 mg/dL 09/19/2023 10:30 PM MERCHANDISE CARRIER PCLX Site ARTLINE 09/19/2023 10:30 PM MERCHANDISE CARRIER PCLX Blood 09/19/2023 10:2 7 PM MERCHANDISE CARRIER 09/19/2023 10:30 PM MERCHANDISE CARRIER Unknown Provider LAB POCT ORDERABLES- MANUAL Performing Organization Address City/[facility] Co de Phone Number [facility] [address] [place] [address], [facility] PCLX [facility] POC [address] [place] [address] * (ABNORMAL) Glucose, POCT (09/19/2023 9:24 PM MERCHANDISE CARRIER) Glucose, POCT, B 194(H) 70 - 140 mg/dL 09/19/2023 9:25 PM MERCHANDISE CARRIER PCLX Site ARTLINE 09/19/2023 9:25 PM MERCHANDISE CARRIER PCLX Blood 09/19/2023 9:24 PM MERCHANDISE CARRIER 09/19/2023 9:25 PM MERCHANDISE CARRIER Unknown Provider LAB POCT ORDERABLES- MANUAL Performing Organization Address City/[facility] Co de Phone Number [facility] [address] [place] [address], [facility] PCLX [facility] POC [address] [place] [address] * ECG 12 Lead (09/19/2023 8:14 PM MERCHANDISE CARRIER) Ventricular Rate ECG/Min 93 BPM MUSE OH Interval 134 ms MUSE QRSD Interval 84 ms MUSE QT Interval 374 ms MUSE QTC Interval 465 ms MUSE P Hudson 74 degrees MUSE R [place] 14 degrees MUSE T Wave [place] 58 degrees MUSE 09/19/2023 8:14 PM MERCHANDISE CARRIER 09/19/2023 8:36 PM MERCHANDISE CARRIER Impressions MUSE - 09/19/2023 8:36 PM MERCHANDISE CARRIER Normal sinus rhythm Nonspecific ST and T [...] Dietz Jenny Jay, B.Ch., B.A.O. ECG ORDERABLES MUSE NA * (ABNORMAL) Glucose, POCT (09/19/2023 7:58 PM MERCHANDISE CARRIER) Glucose, POCT, B 226(H) 70 - 140 mg/dL 09/19/2023 8:00 PM MERCHANDISE CARRIER PCLX Site ARTLINE 09/19/2023 8:00 PM MERCHANDISE CARRIER PCLX Blood 09/19/2023 7:58 PM MERCHANDISE CARRIER 09/19/2023 8:00 PM MERCHANDISE CARRIER Unknown Provider LAB POCT ORDERABLES- MANUAL [facility] [address] [place] [address], [facility] PCLX [facility] POC [address] [place] [address] * (ABNORMAL) Lactate, Whole Blood (09/19/2023 7:43 PM MERCHANDISE CARRIER) [facility] Lactate, B 6.6(H) 0.5 - 2.2 mmol/L 09/19/2023 7:50 PM MERCHANDISE CARRIER STMA Blood (Blood, Arterial) 09/19/2023 7:43 PM MERCHANDISE CARRIER 09/19/2023 7:49 PM MERCHANDISE CARRIER Lobito Melgar APRN, C.N.P., M.S.N. L AB BLOOD NON ADD-ON Performing Organization Address City/[facility]/ZIP Co de Phone Number [facility] [address] [place], [place] [address] [place] [address] [address] [place] [address] * Patient Status (09/19/2023 7:43 PM MERCHANDISE CARRIER) [facility] O2 Flow 5.0L L/min 09/19/2023 7:49 PM MERCHANDISE CARRIER STMA Device NC 09/19/2023 7:49 PM MERCHANDISE CARRIER STMA Spont. breaths/min 21 09/19/2023 7:49 PM MERCHANDISE CARRIER STMA Blood 09/19/2023 7:43 PM MERCHANDISE CARRIER 09/19/2023 7:49 PM MERCHANDISE CARRIER Susu Fajardo LAB BLOOD NON ADD-ON Performing Organization Address City/[facility] Co de Phone Number [facility] [address] [place], [place] [phone] [place] [address] [address] [place] [address] * (ABNORMAL) Lactate (09/19/2023 7:43 PM MERCHANDISE CARRIER) Lactate, P 7.0(H) 0.5 - 2.2 mmol/L 09/19/2023 8:04 PM MERCHANDISE CARRIER STMA Blood (Blood, Venous) 09/19/2023 7:43 PM MERCHANDISE CARRIER 09/19/2023 7:49 PM MERCHANDISE CARRIER Susu Fajardo LAB BLOOD NON ADD-ON [facility] [address] [place] [address], [facility] STMA [facility] [address] [place] [address] * (ABNORMAL) Blood Gas with Coox, Arterial (09/19/2023 7:43 PM MERCHANDISE CARRIER) Pathologist [facility] pO2 157(H) 83 - 108 mm Hg 09/19/2023 7:50 PM MERCHANDISE CARRIER STMA pCO2 42 35 - 48 mm Hg 09/19/2023 7:50 PM MERCHANDISE CARRIER ST[facility] pH 7.25(L) 7.35 - 7.45 pH 09/19/2023 7:50 PM MERCHANDISE CARRIER STMA Base Excess -9(L) -2 - 3 mmol/L 09/19/2023 7:50 PM MERCHANDISE CARRIER STMA HCO3 19(L) 22 - 26 mmol/L 09/19/2023 7:50 PM MERCHANDISE CARRIER STMA Hemoglobin, Venous 10.1(L) 13.2 - 16.6 g/dL 09/19/2023 7:50 PM MERCHANDISE CARRIER STMA O2Hb 97.3 94.0 - 98.0 % 09/19/2023 7:50 PM MERCHANDISE CARRIER STMA COHb 2.0 <3.0 % 09/19/2023 7:50 PM MERCHANDISE CARRIER STMA MetHb 1.0 <1.5 % 09/19/2023 7:50 PM MERCHANDISE CARRIER STMA CtO2 14.1(L) 18.0 - 21.0 vol % 09/19/2023 7:50 PM MERCHANDISE CARRIER STMA Arterial Sample Site Art Line 09/19/2023 7:50 PM MERCHANDISE CARRIER STMA Comment:Mina's test not don e. Blood (Blood, Arterial) 09/19/2023 7:43 PM MERCHANDISE CARRIER 09/19/2023 7:49 PM MERCHANDISE CARRIER Susu Fajardo LAB BLOOD NON ADD-ON [facility] [address] [place] [address], [facility] STMA [facility] [address] [place] [address] * (ABNORMAL) Glucose, POCT (09/19/2023 6:57 PM MERCHANDISE CARRIER) Glucose, POCT, B 224(H) 70 - 140 mg/dL 09/19/2023 7:00 PM MERCHANDISE CARRIER PCLX Site ARTLINE 09/19/2023 7:00 PM MERCHANDISE CARRIER PCLX Blood 09/19/2023 6:57 PM MERCHANDISE CARRIER 09/19/2023 7:00 PM MERCHANDISE CARRIER Unknown Provider LAB POCT ORDERABLES- MANUAL Performing Organization Address City/[facility]/ZIP Co de Phone Number [facility] [address] [place] [address], [facility] PCLX [facility] POC [address] [place] [address] * (ABNORMAL) Glucose, POCT (09/19/2023 6:23 PM MERCHANDISE CARRIER) Glucose, POCT, B 217(H) 70 - 140 mg/dL 09/19/2023 6:24 PM MERCHANDISE CARRIER PCLX Site ARTLINE 09/19/2023 6:24 PM MERCHANDISE CARRIER PCLX Blood 09/19/2023 6:23 PM MERCHANDISE CARRIER 09/19/2023 6:25 PM MERCHANDISE CARRIER Unknown Provider LAB POCT ORDERABLES- MANUAL Performing Organization Address City/[facility]/ZIP Co de Phone Number [facility] [address] [place] [address], [facility] PCLX [facility] POC [address] [place] [address] * DX Chest Portable 1 View (09/19/2023 5:45 PM MERCHANDISE CARRIER) Anatomical Region Laterality Modality Chest, Thoracic RST LOS, Tho racic ARZ LOS, Thoracic FLA LOS N/A Digital Radiography 09/19/2023 7:33 PM MERCHANDISE CARRIER Impressions 09/19/2023 8:26 PM MERCHANDISE CARRIER Interval retraction of the endotracheal tube, with tip now in the mid thoracic trachea. Otherwise no significant changes since 2:23 PM. Right IJ Martin-Sepideh catheter with tip in the main pulmonary artery. Sternotomy wires and mediastinal surgical clips. Aortic valve replacement. Mediastinal drains. Mild bilateral interstitial thickening and perihilar opacities. No definite pleural effusion. Aortic calcifications. Narrative 09/19/2023 8:26 PM MERCHANDISE CARRIER EXAM: ??DX CHEST PORTABLE 1 VIEW Procedure [...] No definitepleural effusion. Aortic calcifications. Jenny Jay, Kaz., B.A.O. IMG DIAGNOSTIC IMAGING PROCEDURES * Transfuse Platelets : (09/19/2023 5:19 PM MERCHANDISE CARRIER) Radha Iqbal M.D. BLOOD TRANSFUSION OR DERABLES * Patient Status (09/19/2023 5:19 PM MERCHANDISE CARRIER) FIO2 0.50 0.21=AIR 09/19/2023 5:22 PM MERCHANDISE CARRIER STMA Device Vent 09/19/2023 5:22 PM MERCHANDISE CARRIER STMA Spont. breaths/min 21 09/19/2023 5:22 PM MERCHANDISE CARRIER STMA Blood 09/19/2023 5:19 PM MERCHANDISE CARRIER 09/19/2023 5:22 PM MERCHANDISE CARRIER Jenny Jay, Nicky.Betty., B.A.O. LAB BLOOD NON ADD-ON [facility] [address] [place], [place] [phone] [place] [address] [address] [place] [address] * Fibrinogen (09/19/2023 5:19 PM MERCHANDISE CARRIER) Fibrinogen, P 269 200 - 393 mg/dL 09/19/2023 5:30 PM MERCHANDISE CARRIER [facility] Blood (Blood, Venous) 09/19/2023 5:19 PM MERCHANDISE CARRIER 09/19/2023 5:22 PM MERCHANDISE CARRIER Jenny Jay, Nicky.Ch., B.A.O. LAB BLOOD ADD-ON Performing Organization Address City/[facility] Co de Phone Number [facility] [address] [place] [address] * Prothrombin Time (PT) (09/19/2023 5:19 PM MERCHANDISE CARRIER) Prothrombin Time, P 12.4 9.4 - 12.5 sec 09/19/2023 5:30 PM [facility] 1.1 0.9 - 1.1 09/19/2023 5:30 PM [facility]ANDISE CARRIER [facility] Comment: ----ADDITIONAL INFORMATION---- Standard intensity warfarin therapeutic range: 2.0 to 3.0 ?? High intensity warfarin therapeutic range: 2.5 to 3.5 Blood (Blood, Venous) 09/19/2023 5:19 PM MERCHANDISE CARRIER 09/19/2023 5:22 PM MERCHANDISE CARRIER Jenny Jay, Nicky.Ch., B.A.O. LAB BLOOD ADD-ON Performing Organization Address City/State/[facility] Co de Phone Number [facility] [address] [place], [place] [phone] [place] [address] [address] [place] [address] * APTT (Activated Partial Thromboplastin Time) (09/19/2023 5:19 PM MERCHANDISE CARRIER) [facility] Activated Partial Thrombopl Time, P 31 25 - 37 sec 09/19/2023 5:32 PM MERCHANDISE CARRIER STMA Blood (Blood, Venous) 09/19/2023 5:19 PM MERCHANDISE CARRIER 09/19/2023 5:22 PM MERCHANDISE CARRIER Jenny Jay, RavenCh., B.A.O. LAB BLOOD ADD-ON Performing Organization Address [facility] de Phone Number [facility] [address] [place] [address], [facility] STMA [facility] [address] [place] [address] * (ABNORMAL) CBC without Differential (09/19/2023 5:19 PM MERCHANDISE CARRIER) [facility] Hemoglobin 9.5(L) 13.2 - 16.6 g/dL 09/19/2023 5:24 PM MERCHANDISE CARRIER STMA Hematocrit 27.5(L) 38.3 - 48.6 % 09/19/2023 5:24 PM MERCHANDISE CARRIER STMA Erythrocytes 3.14(L) 4.35 - 5.65 x10(12)/L 09/19/2023 5:24 PM MERCHANDISE CARRIER STMA MCV 87.6 78.2 - 97.9 fL 09/19/2023 5:24 PM MERCHANDISE CARRIER STMA RBC Distrib Width 13.3 11.8 - 14.5 % 09/19/2023 5:24 PM MERCHANDISE CARRIER STMA Platelet Count 163 135 - 317 x10(9)/L 09/19/2023 5:24 PM MERCHANDISE CARRIER STMA Leukocytes 13.3(H) 3.4 - 9.6 x10(9)/L 09/19/2023 5:24 PM MERCHANDISE CARRIER ST[facility] Blood (Blood, Venous) 09/19/2023 5:19 PM MERCHANDISE CARRIER 09/19/2023 5:22 PM MERCHANDISE CARRIER Jenny Jay, Kaz., B.A.O. LAB BLOOD ADD-ON [facility] [address] [place], [place] [address] [address] [place] [address] * (ABNORMAL) Lactate, Whole Blood (09/19/2023 5:19 PM MERCHANDISE CARRIER) Lactate, B 2.9(H) 0.5 - 2.2 mmol/L 09/19/2023 5:27 PM MERCHANDISE CARRIER STMA Blood (Blood, Arterial) 09/19/2023 5:19 PM MERCHANDISE CARRIER 09/19/2023 5:22 PM MERCHANDISE CARRIER Jenny Jay, B.Ch., B.A.O. LAB BLOOD NON ADD-ON Performing Organization Address City/[facility] Co de Phone Number [facility] [address] [place], [place] [phone] [place] [address] [address] [place] [address] * (ABNORMAL) Blood Gas with Coox, Arterial (09/19/2023 5:19 PM MERCHANDISE CARRIER) pO2 192(H) 83 - 108 mm Hg 09/19/2023 5:27 PM MERCHANDISE CARRIER STMA pCO2 36 35 - 48 mm Hg 09/19/2023 5:27 PM MERCHANDISE CARRIER STMA pH 7.37 7.35 - 7.45 pH 09/19/2023 5:27 PM MERCHANDISE CARRIER STMA Base Excess -4(L) -2 - 3 mmol/L 09/19/2023 5:27 PM MERCHANDISE CARRIER STMA HCO3 20(L) 22 - 26 mmol/L 09/19/2023 5:27 PM MERCHANDISE CARRIER STMA Hemoglobin, Venous 9.9(L) 13.2 - 16.6 g/dL 09/19/2023 5:27 PM MERCHANDISE CARRIER STMA O2Hb 95.6 94.0 - 98.0 % 09/19/2023 5:27 PM MERCHANDISE CARRIER STMA COHb 1.1 <3.0 % 09/19/2023 5:27 PM MERCHANDISE CARRIER STMA MetHb 2.2(H) <1.5 % 09/19/2023 5:27 PM MERCHANDISE CARRIER STMA CtO2 13.7(L) 18.0 - 21.0 vol % 09/19/2023 5:27 PM MERCHANDISE CARRIER STMA Arterial Sample Site Art Line 09/19/2023 5:27 PM MERCHANDISE CARRIER STMA Comment:Mina's test not don e. Blood (Blood, Arterial) 09/19/2023 5:19 PM MERCHANDISE CARRIER 09/19/2023 5:22 PM MERCHANDISE CARRIER Jenny Jay, B.Ch., B.A.O. LAB BLOOD NON ADD-ON [facility] [address] [place] [address], [facility] [address] [place] [address] * (ABNORMAL) Basic Metabolic Panel (09/19/2023 5:19 PM MERCHANDISE CARRIER) Potassium, P 4.6 3.6 - 5.2 mmol/L 09/19/2023 5:38 PM MERCHANDISE CARRIER STMA Sodium, P 140 135 - 145 mmol/L 09/19/2023 5:38 PM MERCHANDISE CARRIER STMA Chloride, P 107 98 - 107 mmol/L 09/19/2023 5:38 PM MERCHANDISE CARRIER STMA Bicarbonate, P 20(L) 22 - 29 mmol/L 09/19/2023 5:38 PM MERCHANDISE CARRIER STMA Anion Gap, P 13 7 - 15 09/19/2023 5:38 PM MERCHANDISE CARRIER ST[facility] BUN (Blood Urea Nitrogen), P 19 8 - 24 mg/dL 09/19/2023 5:38 PM MERCHANDISE CARRIER STMA Creatinine 1.39(H) 0.74 - 1.35 mg/dL 09/19/2023 5:38 PM MERCHANDISE CARRIER STMA Estimated GFR (eGFR) 54(L) >=60 mL/min/BSA 09/19/2023 5:38 PM MERCHANDISE CARRIER STMA Comment: Estimated GFR calculated using the 2020 CKD_EPI creatinine equation. Calcium, Total, P 10.7(H) 8.8 - 10.2 mg/dL 09/19/2023 5:38 PM MERCHANDISE CARRIER STMA Glucose, P 201(H) 70 - 140 mg/dL 09/19/2023 5:38 PM MERCHANDISE CARRIER STMA Blood (Blood, Venous) 09/19/2023 5:19 PM MERCHANDISE CARRIER 09/19/2023 5:22 PM MERCHANDISE CARRIER Jenny Jay, B.Betty., B.A.O. LAB BLOOD ADD-ON Performing Organization Address City/[facility]/ZIP Co de Phone Number [facility] [address] [place] [address], [facility] [address] [place] [address] * (ABNORMAL) Cystatin C with Estimated GFR (09/19/2023 5:19 PM MERCHANDISE CARRIER) Pathologist [facility] eGFR by Cystatin C 59(L) >60 mL/min/BSA 09/19/2023 8:00 PM MERCHANDISE CARRIER DTL Comment: Estimated GFR calculated using the [...] 0.67 - 1.21 mg/L 09/19/2023 8:00 PM MERCHANDISE CARRIER DTL Blood (Blood, Arterial Line) 09/19/2023 5:19 PM MERCHANDISE CARRIER 09/19/2023 5:53 PM MERCHANDISE CARRIER Zoraida Salmeron M.D., Ph.D. LAB BLOOD AD D-ON Performing Organization Address City/[facility]/ZIP Co de Phone Number [facility] [address] [place] [address], [facility] DTL [facility] [address] [place] [address] * (ABNORMAL) Platelet Count (09/19/2023 4:20 PM MERCHANDISE CARRIER) Pathologist [facility] Platelet Count 94(L) 135 - 317 x10(9)/L 09/19/2023 4:27 PM MERCHANDISE CARRIER STMA Blood (Blood, Arterial Line) 09/19/2023 4:20 PM MERCHANDISE CARRIER 09/19/2023 4:20 PM MERCHANDISE CARRIER Rowena Antonio M.D. LAB BLOOD ADD-O N Performing Organization Address City/[facility]/ZIP Co de Phone Number [facility] [address] [place] [address], [facility] [address] [place] [address] * Prothrombin Time (PT) (09/19/2023 4:20 PM MERCHANDISE CARRIER) Prothrombin Time, P 12.3 9.4 - 12.5 sec 09/19/2023 4:32 PM MERCHANDISE CARRIER STMA INR 1.1 0.9 - 1.1 09/19/2023 4:32 PM MERCHANDISE CARRIER [facility] Comment: ----ADDITIONAL INFORMATION---- Standard intensity warfarin therapeutic range: 2.0 to 3.0 ?? High intensity warfarin therapeutic range: 2.5 to 3.5 Blood (Blood, Arterial Line) 09/19/2023 4:20 PM MERCHANDISE CARRIER 09/19/2023 4:20 PM MERCHANDISE CARRIER Rowena Antonio M.D. LAB BLOOD ADD-O N Performing Organization Address [facility] Co de Phone Number [facility] [address] [place] [address], [facility] [address] [place] [address] * Fibrinogen (09/19/2023 4:20 PM MERCHANDISE CARRIER) Fibrinogen, P 246 200 - 393 mg/dL 09/19/2023 4:32 PM MERCHANDISE CARRIER STMA Blood (Blood, Arterial Line) 09/19/2023 4:20 PM MERCHANDISE CARRIER 09/19/2023 4:20 PM MERCHANDISE CARRIER Rowena Antonio M.D. LAB BLOOD ADD-O N [facility] [address] [place], [place] [address] [place] [address] [address] [place] [address] * APTT (Activated Partial Thromboplastin Time) (09/19/2023 4:20 PM MERCHANDISE CARRIER) Activated Partial Thrombopl Time, P 32 25 - 37 sec 09/19/2023 4:34 PM MERCHANDISE CARRIER STMA Blood (Blood, Arterial Line) 09/19/2023 4:20 PM MERCHANDISE CARRIER 09/19/2023 4:20 PM MERCHANDISE CARRIER Rowena Antonio M.D. LAB BLOOD ADD-O N Performing Organization Address City/[facility] Co de Phone Number [facility] [address] [place], [place] [phone] [place] [address] [address] [place] [address] * (ABNORMAL) Lactate, B - Intra-op (09/19/2023 4:20 PM MERCHANDISE CARRIER) Lactate, B 2.9(H) 0.5 - 2.2 mmol/L 09/19/2023 4:23 PM MERCHANDISE CARRIER [facility] Blood (Blood, Venous) 09/19/2023 4:20 PM MERCHANDISE CARRIER 09/19/2023 4:20 PM MERCHANDISE CARRIER Rowena Antonio M.D. LAB BLOOD NON A DD-ON Performing Organization Address City/[facility] Co de Phone Number [facility] [address] [place], [place] [phone] [place] [address] [address] [place] [address] * (ABNORMAL) Glucose, Whole Blood (09/19/2023 4:20 PM MERCHANDISE CARRIER) Glucose 152(H) 70 - 140 mg/dL 09/19/2023 4:23 PM [facility]ANDISE CARRIER [facility] Blood (Blood, Arterial Line) 09/19/2023 4:20 PM MERCHANDISE CARRIER 09/19/2023 4:20 PM MERCHANDISE CARRIER Rowena Antonio M.D. LAB BLOOD ADD-O N [facility] [address] [place] [address], [facility] [address] [place] [address] * Potassium, Blood (09/19/2023 4:20 PM MERCHANDISE CARRIER) Potassium, B 4.7 3.6 - 5.2 mmol/L 09/19/2023 4:23 PM MERCHANDISE CARRIER STMA Blood (Blood, Arterial Line) 09/19/2023 4:20 PM MERCHANDISE CARRIER 09/19/2023 4:20 PM MERCHANDISE CARRIER Rowena Antonio M.D. LAB BLOOD NON A DD-ON Performing Organization Address City/[facility]/ZIP Co de Phone Number [facility] [address] [place] [address], [facility] [address] [place] [address] * Sodium, B (09/19/2023 4:20 PM MERCHANDISE CARRIER) Sodium, B 139 135 - 145 mmol/L 09/19/2023 4:23 PM MERCHANDISE CARRIER STMA Blood (Blood, Arterial Line) 09/19/2023 4:20 PM MERCHANDISE CARRIER 09/19/2023 4:20 PM MERCHANDISE CARRIER Rwoena Antonio M.D. LAB BLOOD NON A DD-ON [facility] [address] [place] [address], [facility] [address] [place] [address] * Calcium, Ionized (09/19/2023 4:20 PM MERCHANDISE CARRIER) Calcium, Ionized, B 5.02 4.65 - 5.30 mg/dL 09/19/2023 4:23 PM MERCHANDISE CARRIER STMA Blood (Blood, Arterial Line) 09/19/2023 4:20 PM MERCHANDISE CARRIER 09/19/2023 4:20 PM MERCHANDISE CARRIER Rowena Antonio M.D. LAB BLOOD NON A DD-ON Performing Organization Address City/[facility]/ZIP Co de Phone Number [facility] [address] [place] [address], [facility] STMA [facility] [address] [place] [address] * (ABNORMAL) Blood Gas with Coox, Arterial (09/19/2023 4:20 PM MERCHANDISE CARRIER) pO2 139(H) 83 - 108 mm Hg 09/19/2023 4:23 PM MERCHANDISE CARRIER STMA pCO2 35 35 - 48 mm Hg 09/19/2023 4:23 PM MERCHANDISE CARRIER STMA pH 7.43 7.35 - 7.45 pH 09/19/2023 4:23 PM MERCHANDISE CARRIER STMA Base Excess -1 -2 - 3 mmol/L 09/19/2023 4:23 PM MERCHANDISE CARRIER STMA HCO3 23 22 - 26 mmol/L 09/19/2023 4:23 PM MERCHANDISE CARRIER STMA Hemoglobin, Venous 8.9(L) 13.2 - 16.6 g/dL 09/19/2023 4:23 PM MERCHANDISE CARRIER STMA O2Hb 97.3 94.0 - 98.0 % 09/19/2023 4:23 PM MERCHANDISE CARRIER STMA COHb 1.4 <3.0 % 09/19/2023 4:23 PM MERCHANDISE CARRIER STMA MetHb <1.0 <1.5 % 09/19/2023 4:23 PM MERCHANDISE CARRIER STMA CtO2 12.4(L) 18.0 - 21.0 vol % 09/19/2023 4:23 PM MERCHANDISE CARRIER STMA Blood (Blood, Arterial Line) 09/19/2023 4:20 PM MERCHANDISE CARRIER 09/19/2023 4:20 PM MERCHANDISE CARRIER Rowena Antonio M.D. LAB BLOOD NON A DD-ON Performing Organization Address City/[facility]/ZIP Co de Phone Number [facility] [address] [place] [address], [facility] [address] [place] [address] * Transfuse Pooled Cryoprecipitate: (09/19/2023 3:54 PM MERCHANDISE CARRIER) Rowena Antonio M.D. BLOOD TRANSFUSI ON ORDERABLES * Transfuse Pooled Cryoprecipitate: (09/19/2023 3:54 PM MERCHANDISE CARRIER) Rowena Antonio M.D. BLOOD TRANSFUSI ON ORDERABLES * Transfuse Red Blood Cells : (09/19/2023 3:50 PM MERCHANDISE CARRIER) Radha Iqbal M.D. BLOOD TRANSFUSION OR DERABLES * Thromboelastograph, Kaolin, Blood (09/19/2023 3:37 PM MERCHANDISE CARRIER) R, Kaolin, TEG 4.8 4.0 - 9.0 min 09/19/2023 5:46 PM MERCHANDISE CARRIER STMA K, Kaolin, TEG 1.3 1.0 - 1.8 min 09/19/2023 5:46 PM MERCHANDISE CARRIER STMA Angle, Kaolin, TEG 70.0 64.0 - 78.1 degrees 09/19/2023 5:46 PM MERCHANDISE CARRIER STMA MA, Kaolin, TEG 65.4 57.1 - 72.6 mm 09/19/2023 5:46 PM MERCHANDISE CARRIER STMA Ly30, Kaolin, TEG 0.0 0.0 - 4.8 % 09/19/2023 5:46 PM MERCHANDISE CARRIER STMA Blood (Blood, Arterial Line) 09/19/2023 3:37 PM MERCHANDISE CARRIER 09/19/2023 3:37 PM MERCHANDISE CARRIER Rowena Antonio M.D. LAB BLOOD NON A DD-ON [facility] [address] [place] [address], [facility] [address] [place] [address] * Thromboelastograph, Kaolin + Heparinase (09/19/2023 3:37 PM MERCHANDISE CARRIER) R-Heparinase, TEG 4.7 1.9 - 6.5 min 09/19/2023 5:46 PM MERCHANDISE CARRIER [facility] K-Heparinase, TEG 1.3 1.0 - 1.9 min 09/19/2023 5:46 PM MERCHANDISE CARRIER [facility] Angle-Heparina se, TEG 72.0 63.5 - 75.1 degrees 09/19/2023 5:46 PM MERCHANDISE CARRIER [facility] MA-Heparinase, TEG 65.9 57.7 - 69.3 mm 09/19/2023 5:46 PM MERCHANDISE CARRIER [facility] Op56-Bidpwcvcn e, TEG 0.0 0.0 - 4.7 % 09/19/2023 5:46 PM MERCHANDISE CARRIER [facility] Ep41-Obveuzvbi e, TEG 1.1 0.0 - 15.0 % 09/19/2023 5:46 PM MERCHANDISE CARRIER [facility] Blood (Blood, Arterial Line) 09/19/2023 3:37 PM MERCHANDISE CARRIER 09/19/2023 3:37 PM MERCHANDISE CARRIER Rowena Antonio M.D. LAB BLOOD NON A DD-ON Performing Organization Address City/[facility]/ZIP Co de Phone Number [facility] [address] [place] [address] * (ABNORMAL) Platelet Count (09/19/2023 3:37 PM MERCHANDISE CARRIER) Pathologist [facility] Platelet Count 108(L) 135 - 317 x10(9)/L 09/19/2023 3:45 PM MERCHANDISE CARRIER [facility] Blood (Blood, Arterial Line) 09/19/2023 3:37 PM MERCHANDISE CARRIER 09/19/2023 3:37 PM MERCHANDISE CARRIER Rowena Antonio M.D. LAB BLOOD ADD-O N [facility] [address] [place] [address] * (ABNORMAL) Prothrombin Time (PT) (09/19/2023 3:37 PM MERCHANDISE CARRIER) Prothrombin Time, P 16.1(H) 9.4 - 12.5 sec 09/19/2023 3:51 PM MERCHANDISE CARRIER [facility] INR 1.5 0.9 - 1.1 09/19/2023 3:51 PM MERCHANDISE CARRIER [facility] Comment: ----ADDITIONAL INFORMATION---- Standard intensity warfarin therapeutic range: 2.0 to 3.0 ?? High intensity warfarin therapeutic range: 2.5 to 3.5 Blood (Blood, Arterial Line) 09/19/2023 3:37 PM MERCHANDISE CARRIER 09/19/2023 3:37 PM MERCHANDISE CARRIER Rowena Antonio M.D. LAB BLOOD ADD-O N Performing Organization Address [facility] Co de Phone Number [facility] [address] [place] [address] * (ABNORMAL) Fibrinogen (09/19/2023 3:37 PM MERCHANDISE CARRIER) Pathologist [facility] Fibrinogen, P 169(L) 200 - 393 mg/dL 09/19/2023 3:51 PM [facility] Blood (Blood, Arterial Line) 09/19/2023 3:37 PM MERCHANDISE CARRIER 09/19/2023 3:37 PM MERCHANDISE CARRIER Rowena Antonio M.D. LAB BLOOD ADD-O N Performing Organization Address City/[facility]/ZIP Co de Phone Number [facility] [address] [place] [address] * APTT (Activated Partial Thromboplastin Time) (09/19/2023 3:37 PM MERCHANDISE CARRIER) Pathologist [facility] Activated Partial Thrombopl Time, P 34 25 - 37 sec 09/19/2023 3:53 PM MERCHANDISE CARRIER [facility] Blood (Blood, Arterial Line) 09/19/2023 3:37 PM MERCHANDISE CARRIER 09/19/2023 3:37 PM MERCHANDISE CARRIER Rowena Antonio M.D. LAB BLOOD ADD-O N Performing Organization Address [facility] Co de Phone Number [facility] 200 [place] [address], [facility] 200 [place] [address] * (ABNORMAL) Lactate, B - Intra-op (09/19/2023 3:37 PM MERCHANDISE CARRIER) Lactate, B 3.1(H) 0.5 - 2.2 mmol/L 09/19/2023 3:41 PM MERCHANDISE CARRIER [facility] Blood (Blood, Venous) 09/19/2023 3:37 PM MERCHANDISE CARRIER 09/19/2023 3:37 PM MERCHANDISE CARRIER Rowena Antonio M.D. LAB BLOOD NON A DD-ON Performing Organization Address [facility] Co de Phone Number [facility] 200 [place], [place] [address] 200 [place] [address] * (ABNORMAL) Glucose, Whole Blood (09/19/2023 3:37 PM MERCHANDISE CARRIER) Glucose 148(H) 70 - 140 mg/dL 09/19/2023 3:41 PM MERCHANDISE CARRIER [facility] Blood (Blood, Arterial Line) 09/19/2023 3:37 PM MERCHANDISE CARRIER 09/19/2023 3:37 PM MERCHANDISE CARRIER Rowena Antonio M.D. LAB BLOOD ADD-O N Performing Organization Address [facility] Co de Phone Number [facility] [address] [place], [place] [id number] [place] [address] 200 [place] [address] * Potassium, Blood (09/19/2023 3:37 PM MERCHANDISE CARRIER) Potassium, B 4.6 3.6 - 5.2 mmol/L 09/19/2023 3:41 PM MERCHANDISE CARRIER [facility] Blood (Blood, Arterial Line) 09/19/2023 3:37 PM MERCHANDISE CARRIER 09/19/2023 3:37 PM MERCHANDISE CARRIER Rowena Antonio M.D. LAB BLOOD NON A DD-ON Performing Organization Address City/[facility]/ZIP Co de Phone Number [facility] [address] [place] [address] * Sodium, B (09/19/2023 3:37 PM MERCHANDISE CARRIER) Sodium, B 140 135 - 145 mmol/L 09/19/2023 3:41 PM MERCHANDISE CARRIER [facility] Blood (Blood, Arterial Line) 09/19/2023 3:37 PM MERCHANDISE CARRIER 09/19/2023 3:37 PM MERCHANDISE CARRIER Rowena Antonio M.D. LAB BLOOD NON A DD-ON Performing Organization Address [facility] Co de Phone Number [facility] [address] [place] [address], [facility] 200 [place] [address] * Calcium, Ionized (09/19/2023 3:37 PM MERCHANDISE CARRIER) Calcium, Ionized, B 4.83 4.65 - 5.30 mg/dL 09/19/2023 3:41 PM MERCHANDISE CARRIER [facility] Blood (Blood, Arterial Line) 09/19/2023 3:37 PM MERCHANDISE CARRIER 09/19/2023 3:37 PM MERCHANDISE CARRIER Rowena Antonio M.D. LAB BLOOD NON A DD-ON Performing Organization Address City/[facility]/ZIP Co de Phone Number [facility] [address] [place] [address], [facility] [address] [place] [address] * (ABNORMAL) Blood Gas with Coox, Arterial (09/19/2023 3:37 PM MERCHANDISE CARRIER) pO2 101 83 - 108 mm Hg 09/19/2023 3:41 PM MERCHANDISE CARRIER [facility] pCO2 40 35 - 48 mm Hg 09/19/2023 3:41 PM MERCHANDISE CARRIER [facility] pH 7.37 7.35 - 7.45 pH 09/19/2023 3:41 PM MERCHANDISE CARRIER [facility] Base Excess -3(L) -2 - 3 mmol/L 09/19/2023 3:41 PM MERCHANDISE CARRIER [facility] HCO3 23 22 - 26 mmol/L 09/19/2023 3:41 PM MERCHANDISE CARRIER [facility] Hemoglobin, Venous 8.1(L) 13.2 - 16.6 g/dL 09/19/2023 3:41 PM MERCHANDISE CARRIER [facility] O2Hb 96.3 94.0 - 98.0 % 09/19/2023 3:41 PM MERCHANDISE CARRIER [facility] COHb 1.4 <3.0 % 09/19/2023 3:41 PM MERCHANDISE CARRIER [facility] MetHb 1.0 <1.5 % 09/19/2023 3:41 PM MERCHANDISE CARRIER [facility] CtO2 11.1(L) 18.0 - 21.0 vol % 09/19/2023 3:41 PM MERCHANDISE CARRIER [facility] Blood (Blood, Arterial Line) 09/19/2023 3:37 PM MERCHANDISE CARRIER 09/19/2023 3:37 PM MERCHANDISE CARRIER Rowena Antonio M.D. LAB BLOOD NON A DD-ON [facility] [address] [place] [address], [facility] STMA [facility] [address] [place] [address] * Transfuse Red Blood Cells : (09/19/2023 3:23 PM MERCHANDISE CARRIER) Radha Iqbal M.D. BLOOD TRANSFUSION OR DERABLES * (ABNORMAL) Platelet Count (09/19/2023 2:46 PM MERCHANDISE CARRIER) Platelet Count 115(L) 135 - 317 x10(9)/L 09/19/2023 2:56 PM MERCHANDISE CARRIER [facility] Blood (Blood, Arterial Line) 09/19/2023 2:46 PM MERCHANDISE CARRIER 09/19/2023 2:46 PM MERCHANDISE CARRIER Rowena Antonio M.D. LAB BLOOD ADD-O N Performing Organization Address [facility]/ZIP Co de Phone Number [facility] [address] [place] [address], [facility] [address] [place] [address] * (ABNORMAL) Prothrombin Time (PT) (09/19/2023 2:46 PM MERCHANDISE CARRIER) Prothrombin Time, P 15.4(H) 9.4 - 12.5 sec 09/19/2023 2:58 PM MERCHANDISE CARRIER [facility] INR 1.4 0.9 - 1.1 09/19/2023 2:58 PM MERCHANDISE CARRIER [facility] Comment: ----ADDITIONAL INFORMATION---- Standard intensity warfarin therapeutic range: 2.0 to 3.0 ?? High intensity warfarin therapeutic range: 2.5 to 3.5 Blood (Blood, Arterial Line) 09/19/2023 2:46 PM MERCHANDISE CARRIER 09/19/2023 2:46 PM MERCHANDISE CARRIER Rowena Antonio M.D. LAB BLOOD ADD-O N Performing Organization Address [facility] Co de Phone Number [facility] [address] [place] [address], [facility] [address] [place] [address] * (ABNORMAL) Fibrinogen (09/19/2023 2:46 PM MERCHANDISE CARRIER) Fibrinogen, P 189(L) 200 - 393 mg/dL 09/19/2023 2:58 PM MERCHANDISE CARRIER [facility] Blood (Blood, Arterial Line) 09/19/2023 2:46 PM MERCHANDISE CARRIER 09/19/2023 2:46 PM MERCHANDISE CARRIER Rowena Antonio M.D. LAB BLOOD ADD-O N [facility] [address] [place], [place] [phone] [place] [address] 200 [place] [address] * APTT (Activated Partial Thromboplastin Time) (09/19/2023 2:46 PM MERCHANDISE CARRIER) Activated Partial Thrombopl Time, P 32 25 - 37 sec 09/19/2023 3:00 PM MERCHANDISE CARRIER [facility] Blood (Blood, Arterial Line) 09/19/2023 2:46 PM MERCHANDISE CARRIER 09/19/2023 2:46 PM MERCHANDISE CARRIER Rowena Antonio M.D. LAB BLOOD ADD-O N Performing Organization Address City/[facility]/ZIP Co de Phone Number [facility] [address] [place], [place] [phone] [place] [address] 200 [place] [address] * Glucose, Whole Blood (09/19/2023 2:46 PM MERCHANDISE CARRIER) Pathologist [facility] Glucose 139 70 - 140 mg/dL 09/19/2023 2:50 PM MERCHANDISE CARRIER [facility] Blood (Blood, Arterial Line) 09/19/2023 2:46 PM MERCHANDISE CARRIER 09/19/2023 2:46 PM MERCHANDISE CARRIER Rowena Antonio M.D. LAB BLOOD ADD-O N Performing Organization Address City/[facility]/ZIP Co de Phone Number [facility] [address] [place], [place] [id number] [place] [address] 200 [place] [address] * Potassium, Blood (09/19/2023 2:46 PM MERCHANDISE CARRIER) Potassium, B 3.8 3.6 - 5.2 mmol/L 09/19/2023 2:50 PM MERCHANDISE CARRIER [facility] Blood (Blood, Arterial Line) 09/19/2023 2:46 PM MERCHANDISE CARRIER 09/19/2023 2:46 PM MERCHANDISE CARRIER Rowena Antonio M.D. LAB BLOOD NON A DD-ON Performing Organization Address City/[facility] Co de Phone Number [facility] [address] [place] [address] * Sodium, B (09/19/2023 2:46 PM MERCHANDISE CARRIER) Sodium, B 141 135 - 145 mmol/L 09/19/2023 2:50 PM MERCHANDISE CARRIER [facility] Blood (Blood, Arterial Line) 09/19/2023 2:46 PM MERCHANDISE CARRIER 09/19/2023 2:46 PM MERCHANDISE CARRIER Rowena Antonio M.D. LAB BLOOD NON A DD-ON Performing Organization Address [facility] Co de Phone Number [address] [place] [address] * (ABNORMAL) Calcium, Ionized (09/19/2023 2:46 PM MERCHANDISE CARRIER) Calcium, Ionized, B 5.36(H) 4.65 - 5.30 mg/dL 09/19/2023 2:50 PM MERCHANDISE CARRIER [facility] Blood (Blood, Arterial Line) 09/19/2023 2:46 PM MERCHANDISE CARRIER 09/19/2023 2:46 PM MERCHANDISE CARRIER Rowena Antonio M.D. LAB BLOOD NON A DD-ON Performing Organization Address [facility] Co de Phone Number [facility] 200 [place] [address] * (ABNORMAL) Blood Gas with Coox, Arterial (09/19/2023 2:46 PM MERCHANDISE CARRIER) pO2 317(H) 83 - 108 mm Hg 09/19/2023 2:50 PM MERCHANDISE CARRIER [facility] pCO2 36 35 - 48 mm Hg 09/19/2023 2:50 PM MERCHANDISE CARRIER [facility] pH 7.42 7.35 - 7.45 pH 09/19/2023 2:50 PM MERCHANDISE CARRIER [facility] Base Excess -1 -2 - 3 mmol/L 09/19/2023 2:50 PM MERCHANDISE CARRIER [facility] HCO3 23 22 - 26 mmol/L 09/19/2023 2:50 PM MERCHANDISE CARRIER [facility] Hemoglobin, Venous 8.1(L) 13.2 - 16.6 g/dL 09/19/2023 2:50 PM MERCHANDISE CARRIER [facility] O2Hb 98.0 94.0 - 98.0 % 09/19/2023 2:50 PM MERCHANDISE CARRIER [facility] COHb 1.3 <3.0 % 09/19/2023 2:50 PM MERCHANDISE CARRIER [facility] MetHb 1.1 <1.5 % 09/19/2023 2:50 PM MERCHANDISE CARRIER [facility] CtO2 11.9(L) 18.0 - 21.0 vol % 09/19/2023 2:50 PM MERCHANDISE CARRIER [facility] Blood (Blood, Arterial Line) 09/19/2023 2:46 PM MERCHANDISE CARRIER 09/19/2023 2:46 PM MERCHANDISE CARRIER Rowena Antonio M.D. LAB BLOOD NON A DD-ON [facility] [address] [place] [address], [facility] 200 [place] [address] * DX Chest Retained Surgical Item 1 View (09/19/2023 2:30 PM MERCHANDISE CARRIER) Anatomical Region Laterality Modality Chest, Thoracic RST LOS, Tho racic ARZ LOS, Thoracic FLA LOS N/A Digital Radiography 09/19/2023 2:32 PM MERCHANDISE CARRIER Impressions 09/19/2023 2:39 PM MERCHANDISE CARRIER The aforementioned object in question is not identified. New sternotomy, mediastinal clips, AVR, mediastinal drains, right IJ Martin-Sepideh catheter tip at the MPA are identified. Likely small amount of mediastinal air. ET tube tip is low lying, approximately 1 cm above the blaine, correlation with chin position is recommended. Loop recorder. Shallower inspiration with accentuation of the cardiac silhouette and vascular crowding. Discussed with Dr. Stanford at 2:36 PM on 09/19/2023. Narrative 09/19/2023 2:39 PM MERCHANDISE CARRIER EXAM: DX CHEST RETAINED SURGICAL ITEM 1 [...] sternotomy,mediastinal clips, AVR, mediastinal drains, right IJ Martin-Sepideh cathetertip at the MPA are identified. Likely [...] * Transfuse Platelets : (09/19/2023 2:17 PM MERCHANDISE CARRIER) Radha Iqbal M.D. BLOOD TRANSFUSION OR DERABLES * Transfuse Red Blood Cells : (09/19/2023 2:00 PM MERCHANDISE CARRIER) Radha Iqbal M.D. BLOOD TRANSFUSION OR DERABLES * (ABNORMAL) Platelet Count (09/19/2023 1:40 PM MERCHANDISE CARRIER) Platelet Count 95(L) 135 - 317 x10(9)/L 09/19/2023 1:44 PM MERCHANDISE CARRIER [facility] Blood (Blood, Arterial Line) 09/19/2023 1:40 PM MERCHANDISE CARRIER 09/19/2023 1:40 PM MERCHANDISE CARRIER Radha Iqbal M.D. LAB BLOOD ADD-ON Performing Organization Address City/[facility]/ZIP Co de Phone Number [facility] [address] [place] [address], [facility] 200 [place] [address] * (ABNORMAL) Prothrombin Time (PT) (09/19/2023 1:40 PM MERCHANDISE CARRIER) Pathologist [facility] Prothrombin Time, P 16.5(H) 9.4 - 12.5 sec 09/19/2023 1:55 PM MERCHANDISE CARRIER [facility] INR 1.5 0.9 - 1.1 09/19/2023 1:55 PM MERCHANDISE CARRIER [facility] Comment: ----ADDITIONAL INFORMATION---- Standard intensity warfarin therapeutic range: 2.0 to 3.0 ?? High intensity warfarin therapeutic range: 2.5 to 3.5 Blood (Blood, Arterial Line) 09/19/2023 1:40 PM MERCHANDISE CARRIER 09/19/2023 1:40 PM MERCHANDISE CARRIER Radha Iqbal M.D. LAB BLOOD ADD-ON Performing Organization Address [facility] Co de Phone Number [facility] [address] [place] [address], [facility] 200 [place] [address] * (ABNORMAL) Fibrinogen (09/19/2023 1:40 PM MERCHANDISE CARRIER) Pathologist [facility] Fibrinogen, P 174(L) 200 - 393 mg/dL 09/19/2023 1:56 PM MERCHANDISE CARRIER [facility] Blood (Blood, Arterial Line) 09/19/2023 1:40 PM MERCHANDISE CARRIER 09/19/2023 1:40 PM MERCHANDISE CARRIER Radha Iqbal M.D. LAB BLOOD ADD-ON Performing Organization Address City/[facility]/ZIP Co de Phone Number [facility] [address] [place] [address], [facility] [address] [place] [address] * APTT (Activated Partial Thromboplastin Time) (09/19/2023 1:40 PM MERCHANDISE CARRIER) Pathologist [facility] Activated Partial Thrombopl Time, P 33 25 - 37 sec 09/19/2023 1:56 PM MERCHANDISE CARRIER [facility] Blood (Blood, Arterial Line) 09/19/2023 1:40 PM MERCHANDISE CARRIER 09/19/2023 1:40 PM MERCHANDISE CARRIER Radha Iqbal M.D. LAB BLOOD ADD-ON [facility] [address] [place], [place] [address] [place] [address] [address] [place] [address] * (ABNORMAL) Glucose, Whole Blood (09/19/2023 1:40 PM MERCHANDISE CARRIER) [facility] Glucose 155(H) 70 - 140 mg/dL 09/19/2023 1:43 PM MERCHANDISE CARRIER [facility] Blood (Blood, Arterial Line) 09/19/2023 1:40 PM MERCHANDISE CARRIER 09/19/2023 1:40 PM MERCHANDISE CARRIER Radha Iqbal M.D. LAB BLOOD ADD-ON Performing Organization Address City/[facility]/ZIP Co de Phone Number [facility] [address] [place], [place] [address] [place] [address] 200 [place] [address] * (ABNORMAL) Potassium, Blood (09/19/2023 1:40 PM MERCHANDISE CARRIER) Pathologist [facility] Potassium, B 3.3(L) 3.6 - 5.2 mmol/L 09/19/2023 1:43 PM MERCHANDISE CARRIER [facility] Blood (Blood, Arterial Line) 09/19/2023 1:40 PM MERCHANDISE CARRIER 09/19/2023 1:40 PM MERCHANDISE CARRIER Radha Iqbal M.D. LAB BLOOD NON ADD-ON [facility] [address] [place], [place] [address] [place] [address] [address] [place] [address] * Sodium, B (09/19/2023 1:40 PM MERCHANDISE CARRIER) Sodium, B 143 135 - 145 mmol/L 09/19/2023 1:43 PM MERCHANDISE CARRIER [facility] Blood (Blood, Arterial Line) 09/19/2023 1:40 PM MERCHANDISE CARRIER 09/19/2023 1:40 PM MERCHANDISE CARRIER Radha Iqbal M.D. LAB BLOOD NON ADD-ON [facility] [address] [place] [address], [facility] 200 [place] [address] * (ABNORMAL) Calcium, Ionized (09/19/2023 1:40 PM MERCHANDISE CARRIER) Calcium, Ionized, B 3.81(L) 4.65 - 5.30 mg/dL 09/19/2023 1:43 PM MERCHANDISE CARRIER [facility] Blood (Blood, Arterial Line) 09/19/2023 1:40 PM MERCHANDISE CARRIER 09/19/2023 1:40 PM MERCHANDISE CARRIER Radha Iqbal M.D. LAB BLOOD NON ADD-ON [facility] [address] [place] [address], [facility] [address] [place] [address] * (ABNORMAL) Blood Gas with Coox, Arterial (09/19/2023 1:40 PM MERCHANDISE CARRIER) pO2 101 83 - 108 mm Hg 09/19/2023 1:43 PM MERCHANDISE CARRIER [facility] pCO2 36 35 - 48 mm Hg 09/19/2023 1:43 PM MERCHANDISE CARRIER [facility] pH 7.40 7.35 - 7.45 pH 09/19/2023 1:43 PM MERCHANDISE CARRIER [facility] Base Excess -3(L) -2 - 3 mmol/L 09/19/2023 1:43 PM MERCHANDISE CARRIER [facility] HCO3 22 22 - 26 mmol/L 09/19/2023 1:43 PM MERCHANDISE CARRIER [facility] Hemoglobin, Venous 7.2(L) 13.2 - 16.6 g/dL 09/19/2023 1:43 PM MERCHANDISE CARRIER [facility] O2Hb 97.1 94.0 - 98.0 % 09/19/2023 1:43 PM MERCHANDISE CARRIER [facility] COHb 1.4 <3.0 % 09/19/2023 1:43 PM MERCHANDISE CARRIER [facility] MetHb <1.0 <1.5 % 09/19/2023 1:43 PM MERCHANDISE CARRIER [facility] CtO2 10.1(L) 18.0 - 21.0 vol % 09/19/2023 1:43 PM MERCHANDISE CARRIER [facility] Blood (Blood, Arterial Line) 09/19/2023 1:40 PM MERCHANDISE CARRIER 09/19/2023 1:40 PM MERCHANDISE CARRIER Radha Iqbal M.D. LAB BLOOD NON ADD-ON Performing Organization Address City/State/[facility] Co de Phone Number [facility] [address] [place] [address], [facility] [address] [place] [address] * Transfuse autologous RBC (Cell Salvage) : (09/19/2023 1:28 PM MERCHANDISE CARRIER) Radha Iqbal M.D. BLOOD TRANSFUSION OR DERABLES * Transfuse Fresh Frozen Plasma : (09/19/2023 1:24 PM MERCHANDISE CARRIER) Radha Iqbal M.D. BLOOD TRANSFUSION OR DERABLES * Transfuse Platelets : (09/19/2023 1:09 PM MERCHANDISE CARRIER) Radha Iqbal M.D. BLOOD TRANSFUSION OR DERABLES * Lactate, B - Intra-op (09/19/2023 12:45 PM MERCHANDISE CARRIER) Lactate, B 2.0 0.5 - 2.2 mmol/L 09/19/2023 12:46 PM MERCHANDISE CARRIER [facility] Blood (Blood, Venous) 09/19/2023 12:45 PM MERCHANDISE CARRIER 09/19/2023 12:45 PM MERCHANDISE CARRIER Radha Iqbal M.D. LAB BLOOD NON ADD-ON Performing Organization Address City/[facility]/ZIP Co de Phone Number [facility] [address] [place], [place] [address] [place] [address] 200 [place] [address] * (ABNORMAL) Glucose, Whole Blood (09/19/2023 12:45 PM MERCHANDISE CARRIER) Glucose 151(H) 70 - 140 mg/dL 09/19/2023 12:46 PM MERCHANDISE CARRIER [facility] Blood (Blood, Arterial Line) 09/19/2023 12:45 PM MERCHANDISE CARRIER 09/19/2023 12:45 PM MERCHANDISE CARRIER Radha Iqbal M.D. LAB BLOOD ADD-ON Performing Organization Address City/[facility]/ZIP Co de Phone Number [facility] [address] [place], [place] [address] [address] [place] [address] * Potassium, Blood (09/19/2023 12:45 PM MERCHANDISE CARRIER) Potassium, B 3.8 3.6 - 5.2 mmol/L 09/19/2023 12:46 PM MERCHANDISE CARRIER [facility] Blood (Blood, Arterial Line) 09/19/2023 12:45 PM MERCHANDISE CARRIER 09/19/2023 12:45 PM MERCHANDISE CARRIER Radha Iqbal M.D. LAB BLOOD NON ADD-ON [facility] [address] [place] [address], [facility] [address] [place] [address] * Sodium, B (09/19/2023 12:45 PM MERCHANDISE CARRIER) Sodium, B 142 135 - 145 mmol/L 09/19/2023 12:46 PM MERCHANDISE CARRIER [facility] Blood (Blood, Arterial Line) 09/19/2023 12:45 PM MERCHANDISE CARRIER 09/19/2023 12:45 PM MERCHANDISE CARRIER Radha Iqbal M.D. LAB BLOOD NON ADD-ON [facility] [address] [place] [address], [facility] [address] [place] [address] * Calcium, Ionized (09/19/2023 12:45 PM MERCHANDISE CARRIER) Pathologist [facility] Calcium, Ionized, B 4.86 4.65 - 5.30 mg/dL 09/19/2023 12:46 PM MERCHANDISE CARRIER [facility] Blood (Blood, Arterial Line) 09/19/2023 12:45 PM MERCHANDISE CARRIER 09/19/2023 12:45 PM MERCHANDISE CARRIER Radha Iqbal M.D. LAB BLOOD NON ADD-ON Performing Organization Address City/[facility]/ZIP Co de Phone Number [facility] [address] [place] [address], [facility] [address] [place] [address] * (ABNORMAL) Blood Gas with Coox, Arterial (09/19/2023 12:45 PM MERCHANDISE CARRIER) Pathologist [facility] pO2 360(H) 83 - 108 mm Hg 09/19/2023 12:46 PM MERCHANDISE CARRIER [facility] pCO2 37 35 - 48 mm Hg 09/19/2023 12:46 PM MERCHANDISE CARRIER [facility] pH 7.43 7.35 - 7.45 pH 09/19/2023 12:46 PM MERCHANDISE CARRIER [facility] Base Excess 0 -2 - 3 mmol/L 09/19/2023 12:46 PM MERCHANDISE CARRIER [facility] HCO3 25 22 - 26 mmol/L 09/19/2023 12:46 PM MERCHANDISE CARRIER [facility] Hemoglobin, Venous 8.5(L) 13.2 - 16.6 g/dL 09/19/2023 12:46 PM MERCHANDISE CARRIER [facility] O2Hb 98.9(H) 94.0 - 98.0 % 09/19/2023 12:46 PM MERCHANDISE CARRIER [facility] COHb 1.1 <3.0 % 09/19/2023 12:46 PM MERCHANDISE CARRIER [facility] MetHb <1.0 <1.5 % 09/19/2023 12:46 PM MERCHANDISE CARRIER [facility] CtO2 12.8(L) 18.0 - 21.0 vol % 09/19/2023 12:46 PM MERCHANDISE CARRIER [facility] Blood (Blood, Arterial Line) 09/19/2023 12:45 PM MERCHANDISE CARRIER 09/19/2023 12:45 PM MERCHANDISE CARRIER Radha Iqbal M.D. LAB BLOOD NON ADD-ON Performing Organization Address City/[facility] Co de Phone Number [facility] [address] [place] [address], [facility] [address] [place] [address] * (ABNORMAL) Platelet Count (09/19/2023 12:44 PM MERCHANDISE CARRIER) Platelet Count 62(L) 135 - 317 x10(9)/L 09/19/2023 12:51 PM MERCHANDISE CARRIER [facility] Blood (Blood, Arterial Line) 09/19/2023 12:44 PM MERCHANDISE CARRIER 09/19/2023 12:44 PM MERCHANDISE CARRIER Radha Iqbal M.D. LAB BLOOD ADD-ON Performing Organization Address [facility] Co de Phone Number [facility] [address] [place] [address], [facility] [address] [place] [address] * (ABNORMAL) Prothrombin Time (PT) (09/19/2023 12:44 PM MERCHANDISE CARRIER) Prothrombin Time, P 18.5(H) 9.4 - 12.5 sec 09/19/2023 1:00 PM MERCHANDISE CARRIER [facility] INR 1.7 0.9 - 1.1 09/19/2023 1:00 PM MERCHANDISE CARRIER [facility] Comment: ----ADDITIONAL INFORMATION---- Standard intensity warfarin therapeutic range: 2.0 to 3.0 ?? High intensity warfarin therapeutic range: 2.5 to 3.5 Blood (Blood, Arterial Line) 09/19/2023 12:44 PM MERCHANDISE CARRIER 09/19/2023 12:44 PM MERCHANDISE CARRIER Radha Iqbal M.D. LAB BLOOD ADD-ON Performing Organization Address City/[facility]/ZIP Co de Phone Number [facility] [address] [place], [place] [id number] [place] [address] [address] [place] [address] * (ABNORMAL) Fibrinogen (09/19/2023 12:44 PM MERCHANDISE CARRIER) Pathologist [facility] Fibrinogen, P 195(L) 200 - 393 mg/dL 09/19/2023 12:59 PM [facility] Blood (Blood, Arterial Line) 09/19/2023 12:44 PM MERCHANDISE CARRIER 09/19/2023 12:44 PM MERCHANDISE CARRIER Radha Iqbal M.D. LAB BLOOD ADD-ON Performing Organization Address [facility] Co de Phone Number [facility] [address] [place], [place] [phone] [place] [address] [address] [place] [address] * (ABNORMAL) APTT (Activated Partial Thromboplastin Time) (09/19/2023 12:44 PM MERCHANDISE CARRIER) [facility] Activated Partial Thrombopl Time, P 40(H) 25 - 37 sec 09/19/2023 1:01 PM [facility]ANDISE CARRIER [facility] Blood (Blood, Arterial Line) 09/19/2023 12:44 PM MERCHANDISE CARRIER 09/19/2023 12:44 PM MERCHANDISE CARRIER Radha Iqbal M.D. LAB BLOOD ADD-ON Performing Organization Address City/[facility]/ZIP Co de Phone Number [facility] [address] [place], [place] [phone] [place] [address] [address] [place] [address] * ACT (Activated Clotting Time), POCT (09/19/2023 12:42 PM MERCHANDISE CARRIER) [facility] Activated Clotting Time 126 82 - 152 sec 09/19/2023 12:45 PM MERCHANDISE CARRIER PCLX 09/19/2023 12:4 2 PM MERCHANDISE CARRIER 09/19/2023 12:45 PM MERCHANDISE CARRIER Unknown Provider LAB POCT ORDERABLES - DEVICE Performing Organization Address [facility]/ZIP Co de Phone Number [id number] [address] [place] [address], [place] PCLX [facility] [address] [place] [address] * (ABNORMAL) Hemoglobin (HGB), POCT (09/19/2023 12:17 PM MERCHANDISE CARRIER) Hemoglobin, POCT, B 8.7(L) 13.2 - 16.6 g/dL 09/19/2023 12:23 PM MERCHANDISE CARRIER PCSM Blood 09/19/2023 12:1 7 PM MERCHANDISE CARRIER 09/19/2023 12:23 PM MERCHANDISE CARRIER Unknown Provider LAB POCT ORDERABLES - DEVICE Performing Organization Address [facility]/ZIP Co de Phone Number POC RST [facility] [address] [place] [address], [facility] PCSM [facility] POC [address] [place] [phone] * (ABNORMAL) ACT (Activated Clotting Time), POCT (09/19/2023 12:01 PM MERCHANDISE CARRIER) Activated Clotting Time 668(H) 82 - 152 sec 09/19/2023 12:18 PM MERCHANDISE CARRIER PCLX 09/19/2023 12:0 1 PM MERCHANDISE CARRIER 09/19/2023 12:18 PM MERCHANDISE CARRIER Unknown Provider LAB POCT ORDERABLES - DEVICE Performing Organization Address [facility] Co de Phone Number POC [facility] [address] [place] [address], [facility] PCLX [facility] POC [address] [place] [address] * (ABNORMAL) Glucose, POCT (09/19/2023 12:00 PM MERCHANDISE CARRIER) Glucose, POCT, B 150(H) 70 - 140 mg/dL 09/19/2023 12:01 PM MERCHANDISE CARRIER PCSM Site ARTLINE 09/19/2023 12:01 PM MERCHANDISE CARRIER PCS Blood 09/19/2023 12:0 0 PM MERCHANDISE CARRIER 09/19/2023 12:01 PM MERCHANDISE CARRIER Unknown Provider LAB POCT ORDERABLES- MANUAL POC RST [facility] [address] [place] [address], [facility] [address] [place] [address] * Surgical Pathology, Frozen Lab (09/19/2023 11:34 AM MERCHANDISE CARRIER) 09/25/2023 10:47 AM MERCHANDISE CARRIER STMA Participated in the Interpretation Amber Gutierrez M.D. -Pathology Resident 09/25/2023 10:47 AM MERCHANDISE CARRIER STMA Report electronically signed by Zohreh De La Cruz M.D. I verify that I have examined all relevant slides/materials for the specimen(s) and rendered or confirmed the diagnosis. 09/25/2023 10:47 AM MERCHANDISE CARRIER STMA Gross Description A. ??Received fresh labeled with the patient's name, medical record number, and designated as heart, left atrial appendage. ??It consists of a 2.6 x 2.4 x 1.3 cm atrial appendage without mural thrombus. ??Hydramatic Specialist sections are submitted for microscopy in cassette A1. ??Grossed by Teresa Qureshi M.S., PA([facility]). B. ??Received fresh labeled with the [...] up to 0.2 cm in greatest size. ??Hydramatic Specialist sections are submitted for microscopy in cassette B1, following decalcification. Grossed by Teresa Qureshi M.S., GEORGE([facility]). 09/25/2023 10:47 AM MERCHANDISE CARRIER STMA Block Summary A Heart, left atrial appendage A1 B Heart, aortic valve B1 09/25/2023 10:47 AM MERCHANDISE CARRIER STMA Interpretation FINAL DIAGNOSIS A. ??Heart, left atrial appendage, excision: Mild myocyte hypertrophy and mild interstitial fibrosis, without mural thrombus. B. ??Heart, aortic valve, excision: ? 1. ??Degenerative fibrocalcific aortic valve disease, with moderate calcification ?(evaluated with Verhoeff-Van Gieson stain on block B1). ? 2. ??History of severe aortic stenosis and trivial aortic regurgitation. Diagnosis was made via digital imaging. 09/25/2023 10:47 AM MERCHANDISE CARRIER STMA Tissue (Heart, Atrium) 09/19/2023 11:34 AM MERCHANDISE CARRIER Tissue (Heart Valve, Aortic) 09/19/2023 11:34 AM MERCHANDISE CARRIER Sarah Miller M.D., M.P.H. LAB SURG PATH ORDERABLES Performing Organization Address City/[facility]/ZIP Co de Phone Number [facility] [address] [place] [address], [facility] 200 [facility] 200 [place] [address] * Transfuse autologous RBC (Cell Salvage) : (09/19/2023 11:33 AM MERCHANDISE CARRIER) Radha Iqbal M.D. BLOOD TRANSFUSION OR DERABLES * (ABNORMAL) ACT (Activated Clotting Time), POCT (09/19/2023 11:28 AM MERCHANDISE CARRIER) Pathologist [facility] Activated Clotting Time 587(H) 82 - 152 sec 09/19/2023 11:43 AM MERCHANDISE CARRIER PCLX 09/19/2023 11:2 8 AM MERCHANDISE CARRIER 09/19/2023 11:43 AM MERCHANDISE CARRIER Unknown Provider LAB POCT ORDERABLES - DEVICE Performing Organization Address City/[facility]/ZIP Co de Phone Number POC [facility] [address] [place] [address], [facility] PCLX [facility] POC [address] [place] [address] * (ABNORMAL) ACT (Activated Clotting Time), POCT (09/19/2023 10:55 AM MERCHANDISE CARRIER) Activated Clotting Time 631(H) 82 - 152 sec 09/19/2023 11:05 AM MERCHANDISE CARRIER PCLX 09/19/2023 10:5 5 AM MERCHANDISE CARRIER 09/19/2023 11:05 AM MERCHANDISE CARRIER Unknown Provider LAB POCT ORDERABLES - DEVICE Performing Organization Address City/[facility]/ZIP Co de Phone Number POC [facility] [address] [place] [address], [facility] PCLX [facility] POC [address] [place] [address] * (ABNORMAL) ACT (Activated Clotting Time), POCT (09/19/2023 10:24 AM MERCHANDISE CARRIER) Activated Clotting Time 747(H) 82 - 152 sec 09/19/2023 10:37 AM MERCHANDISE CARRIER PCLX 09/19/2023 10:2 4 AM MERCHANDISE CARRIER 09/19/2023 10:37 AM MERCHANDISE CARRIER Unknown Provider LAB POCT ORDERABLES - DEVICE Performing Organization Address [facility]/ZIP Co de Phone Number POC [facility] [address] [place] [address], [facility] PCLX [facility] POC [address] [place] [address] * (ABNORMAL) Glucose, POCT (09/19/2023 10:23 AM MERCHANDISE CARRIER) Glucose, POCT, B 148(H) 70 - 140 mg/dL 09/19/2023 10:24 AM MERCHANDISE CARRIER PCSM Site ARTLINE 09/19/2023 10:24 AM MERCHANDISE CARRIER PCSM Blood 09/19/2023 10:2 3 AM MERCHANDISE CARRIER 09/19/2023 10:24 AM MERCHANDISE CARRIER Unknown Provider LAB POCT ORDERABLES- MANUAL POC T [facility] [address] POC [address] [place] [address] * Transfuse Red Blood Cells : (09/19/2023 10:13 AM MERCHANDISE CARRIER) Radha Iqbal M.D. BLOOD TRANSFUSION OR DERABLES * (EDMUNDO) - INTRAOPERATIVE WITH COLOR AND LIMITED DOPPLER (PROBE NOT PLACED) (09/19/2023 9:56 AM MERCHANDISE CARRIER) Ejection Fraction [facility] Anatomical Region Laterality Modality Echocardiography 09/19/2023 6:43 AM MERCHANDISE CARRIER Impressions 09/19/2023 1:45 PM MERCHANDISE CARRIER PROCEDURE:Transesophageal echocardiogram performed at the request of the primary service tech. Transesophageal echocardiogram completed without complications. PRE-BYPASS:Pre-bypass left [...] the Order-Level Documents. Narrative 09/19/2023 1:45 PM MERCHANDISE CARRIER For the complete report, see the Order-Level [...] echocardiogram performed at the request of theprimary service tech. Transesophageal echocardiogram completedwithout complications. PRE-BYPASS:Pre-bypass left ventricular [...] the complete report, see the Order-Level Documents. Arman Arghami M.D., M.P.H. CV ECHO PROCE DURES * (ABNORMAL) ACT (Activated Clotting Time), POCT (09/19/2023 9:51 AM MERCHANDISE CARRIER) Activated Clotting Time 910(H) 82 - 152 sec 09/19/2023 10:04 AM MERCHANDISE CARRIER PCLX 09/19/2023 9:51 AM MERCHANDISE CARRIER 09/19/2023 10:04 AM MERCHANDISE CARRIER Unknown Provider LAB POCT ORDERABLES - DEVICE Performing Organization Address [facility] Co de Phone Number POC [facility] [address] [place] [address], [facility] PCLX [facility] POC [address] [place] [address] * Glucose, Whole Blood (09/19/2023 9:51 AM MERCHANDISE CARRIER) Glucose 126 70 - 140 mg/dL 09/19/2023 9:53 AM MERCHANDISE CARRIER STMA Blood (Blood, Arterial Line) 09/19/2023 9:51 AM MERCHANDISE CARRIER 09/19/2023 9:51 AM MERCHANDISE CARRIER Sarah Miller M.D., M.P.H. LAB BLOOD ADD -ON Performing Organization Address [facility] Co de Phone Number [facility] [address] [place] [address], [facility] STMA [facility] [address] [place] [address] * Potassium, Blood (09/19/2023 9:51 AM MERCHANDISE CARRIER) Potassium, B 4.1 3.6 - 5.2 mmol/L 09/19/2023 9:53 AM MERCHANDISE CARRIER STMA Blood (Blood, Arterial Line) 09/19/2023 9:51 AM MERCHANDISE CARRIER 09/19/2023 9:51 AM MERCHANDISE CARRIER Sarah Miller M.D., M.P.H. LAB BLOOD NON ADD-ON Performing Organization Address City/[facility]/ZIP Co de Phone Number [facility] [address] [place], [place] [address] [place] [address] [address] [place] [address] * Sodium, B (09/19/2023 9:51 AM MERCHANDISE CARRIER) Pathologist [facility] Sodium, B 143 135 - 145 mmol/L 09/19/2023 9:53 AM MERCHANDISE CARRIER [facility] Blood (Blood, Arterial Line) 09/19/2023 9:51 AM MERCHANDISE CARRIER 09/19/2023 9:51 AM MERCHANDISE CARRIER Sarah Miller M.D., M.P.H. LAB BLOOD NON ADD-ON [facility] [address] [place] [address] * (ABNORMAL) Calcium, Ionized (09/19/2023 9:51 AM MERCHANDISE CARRIER) [facility] Calcium, Ionized, B 3.99(L) 4.65 - 5.30 mg/dL 09/19/2023 9:53 AM MERCHANDISE CARRIER [facility] Blood (Blood, Arterial Line) 09/19/2023 9:51 AM MERCHANDISE CARRIER 09/19/2023 9:51 AM MERCHANDISE CARRIER Sarah Miller M.D., M.P.H. LAB BLOOD NON ADD-ON [facility] [address] [place], [place] [address] [place] [address] [address] [place] [address] * (ABNORMAL) Blood Gas with Coox, Arterial (09/19/2023 9:51 AM MERCHANDISE CARRIER) Pathologist [facility] pO2 339(H) 83 - 108 mm Hg 09/19/2023 9:53 AM MERCHANDISE CARRIER STMA pCO2 38 35 - 48 mm Hg 09/19/2023 9:53 AM MERCHANDISE CARRIER STMA pH 7.45 7.35 - 7.45 pH 09/19/2023 9:53 AM MERCHANDISE CARRIER STMA Base Excess 2 -2 - 3 mmol/L 09/19/2023 9:53 AM MERCHANDISE CARRIER STMA HCO3 26 22 - 26 mmol/L 09/19/2023 9:53 AM MERCHANDISE CARRIER STMA Hemoglobin, Venous 8.1(L) 13.2 - 16.6 g/dL 09/19/2023 9:53 AM MERCHANDISE CARRIER STMA O2Hb 99.1(H) 94.0 - 98.0 % 09/19/2023 9:53 AM MERCHANDISE CARRIER STMA COHb 1.2 <3.0 % 09/19/2023 9:53 AM MERCHANDISE CARRIER STMA MetHb <1.0 <1.5 % 09/19/2023 9:53 AM MERCHANDISE CARRIER STMA CtO2 12.2(L) 18.0 - 21.0 vol % 09/19/2023 9:53 AM MERCHANDISE CARRIER STMA Blood (Blood, Arterial Line) 09/19/2023 9:51 AM MERCHANDISE CARRIER 09/19/2023 9:51 AM MERCHANDISE CARRIER Sarah Miller M.D., M.P.H. LAB BLOOD NON ADD-ON Performing Organization Address City/[facility]/ZIP Co de Phone Number [facility] [address] [facility] 200 [place] [address] * (ABNORMAL) ACT (Activated Clotting Time), POCT (09/19/2023 9:26 AM MERCHANDISE CARRIER) [facility] Activated Clotting Time 868(H) 82 - 152 sec 09/19/2023 9:37 AM MERCHANDISE CARRIER PCLX 09/19/2023 9:26 AM MERCHANDISE CARRIER 09/19/2023 9:37 AM MERCHANDISE CARRIER Unknown Provider LAB POCT ORDERABLES - DEVICE Performing Organization Address City/[facility]/ZIP Co de Phone Number POC [facility] [address] [place] [address], [facility] PCLX [facility] [address] [place] [address] * (ABNORMAL) Hemoglobin (HGB), POCT (09/19/2023 9:24 AM MERCHANDISE CARRIER) Hemoglobin, POCT, B 9.8(L) 13.2 - 16.6 g/dL 09/19/2023 9:31 AM MERCHANDISE CARRIER PCSM Blood 09/19/2023 9:24 AM MERCHANDISE CARRIER 09/19/2023 9:31 AM MERCHANDISE CARRIER Unknown Provider LAB POCT ORDERABLES - DEVICE POC RST [facility] [address] [place] [address], [facility] PCSM [facility] POC [address] [place] [address] * Lactate, B - Intra-op (09/19/2023 8:25 AM MERCHANDISE CARRIER) Lactate, B 0.9 0.5 - 2.2 mmol/L 09/19/2023 8:28 AM MERCHANDISE CARRIER STMA Blood (Blood, Venous) 09/19/2023 8:25 AM MERCHANDISE CARRIER 09/19/2023 8:25 AM MERCHANDISE CARRIER Radha Iqbal M.D. LAB BLOOD NON ADD-ON [facility] [address] [place] [address], [facility] [address] [place] [address] * Glucose, Whole Blood (09/19/2023 8:25 AM MERCHANDISE CARRIER) Pathologist [facility] Glucose 133 70 - 140 mg/dL 09/19/2023 8:28 AM MERCHANDISE CARRIER STMA Blood (Blood, Arterial Line) 09/19/2023 8:25 AM MERCHANDISE CARRIER 09/19/2023 8:25 AM MERCHANDISE CARRIER Radha Iqbal M.D. LAB BLOOD ADD-ON [facility] [address] [place] [address], [facility] [address] [place] [address] * Potassium, Blood (09/19/2023 8:25 AM MERCHANDISE CARRIER) Potassium, B 3.8 3.6 - 5.2 mmol/L 09/19/2023 8:28 AM MERCHANDISE CARRIER STMA Blood (Blood, Arterial Line) 09/19/2023 8:25 AM MERCHANDISE CARRIER 09/19/2023 8:25 AM MERCHANDISE CARRIER Radha Iqbal M.D. LAB BLOOD NON ADD-ON [facility] [address] [place] [address], [facility] [address] [place] [address] * Sodium, B (09/19/2023 8:25 AM MERCHANDISE CARRIER) Sodium, B 143 135 - 145 mmol/L 09/19/2023 8:28 AM MERCHANDISE CARRIER STMA Blood (Blood, Arterial Line) 09/19/2023 8:25 AM MERCHANDISE CARRIER 09/19/2023 8:25 AM MERCHANDISE CARRIER Radha Iqbal M.D. LAB BLOOD NON ADD-ON Performing Organization Address City/[facility]/ZIP Co de Phone Number [facility] [address] [place] [address], [facility] [address] [place] [address] * (ABNORMAL) Calcium, Ionized (09/19/2023 8:25 AM MERCHANDISE CARRIER) Calcium, Ionized, B 4.50(L) 4.65 - 5.30 mg/dL 09/19/2023 8:28 AM MERCHANDISE CARRIER STMA Blood (Blood, Arterial Line) 09/19/2023 8:25 AM MERCHANDISE CARRIER 09/19/2023 8:25 AM MERCHANDISE CARRIER Radha Iqbal M.D. LAB BLOOD NON ADD-ON Performing Organization Address City/[facility]/ZIP Co de Phone Number [facility] [address] [place], [place] [address] [address] [place] [address] * (ABNORMAL) Blood Gas with Coox, Arterial (09/19/2023 8:25 AM MERCHANDISE CARRIER) Pathologist [facility] pO2 421(H) 83 - 108 mm Hg 09/19/2023 8:28 AM MERCHANDISE CARRIER STMA pCO2 40 35 - 48 mm Hg 09/19/2023 8:28 AM MERCHANDISE CARRIER STMA pH 7.42 7.35 - 7.45 pH 09/19/2023 8:28 AM MERCHANDISE CARRIER STMA Base Excess 1 -2 - 3 mmol/L 09/19/2023 8:28 AM MERCHANDISE CARRIER STMA HCO3 26 22 - 26 mmol/L 09/19/2023 8:28 AM MERCHANDISE CARRIER STMA Hemoglobin, Venous 9.8(L) 13.2 - 16.6 g/dL 09/19/2023 8:28 AM MERCHANDISE CARRIER STMA O2Hb 98.6(H) 94.0 - 98.0 % 09/19/2023 8:28 AM MERCHANDISE CARRIER STMA COHb 1.0 <3.0 % 09/19/2023 8:28 AM MERCHANDISE CARRIER STMA MetHb <1.0 <1.5 % 09/19/2023 8:28 AM MERCHANDISE CARRIER STMA CtO2 14.7(L) 18.0 - 21.0 vol % 09/19/2023 8:28 AM MERCHANDISE CARRIER STMA Blood (Blood, Arterial Line) 09/19/2023 8:25 AM MERCHANDISE CARRIER 09/19/2023 8:25 AM MERCHANDISE CARRIER Radha Iqbal M.D. LAB BLOOD NON ADD-ON [facility] [address] [place] [address], [facility] [address] [place] [address] * ACT (Activated Clotting Time), POCT (09/19/2023 8:24 AM MERCHANDISE CARRIER) Activated Clotting Time 132 82 - 152 sec 09/19/2023 8:27 AM MERCHANDISE CARRIER PCLX 09/19/2023 8:24 AM MERCHANDISE CARRIER 09/19/2023 8:27 AM MERCHANDISE CARRIER Unknown Provider LAB POCT ORDERABLES - DEVICE POC [facility] [address] [place] [address], [place] PCLX [facility] POC [address] [place] [address] documented in this encounter Visit Diagnoses Diagnosis [...] Sun09/21/23 at 1800 Given 09/26/2023 11:39 AM MERCHANDISE CARRIER 1,000 mg Given 09/26/2023 6:59 AM MERCHANDISE CARRIER 1,000 mg Given 09/26/2023 12:55 AM MERCHANDISE CARRIER 1,000 mg albuterol nebulizer solution 2.5 mg 2.5 mg, nebulization, Every 4 hours PRN, wheezing, Starting on Sun09/19/23 at 1707 amiodarone tablet 200 mg (PACERONE) 200 mg, oral, 2 times daily, First dose on Sun09/26/23 at 0900, For 4 days Given 09/26/2023 7:57 AM MERCHANDISE CARRIER 200 mg amiodarone tablet 200 mg (PACERONE) 200 mg, oral, Daily, First dose on Sun09/30/23 at 0900, For 30 days aspirin chewable tablet 81 mg 81 mg, oral, Daily, First dose on Carissa 09/20/23 at 0900 Given 09/26/2023 8:00 AM MERCHANDISE CARRIER 81 mg Given 09/25/2023 8:04 AM MERCHANDISE CARRIER 81 mg Given 09/24/2023 8:39 AM MERCHANDISE CARRIER 81 mg atorvastatin tablet 80 mg (LIPITOR) 80 mg, oral, Daily at bedtime, First dose on Sun09/19/23 at 2100 Given 09/25/2023 8:17 PM MERCHANDISE CARRIER 80 mg Given 09/24/2023 8:34 PM MERCHANDISE CARRIER 80 mg Given 09/23/2023 9:57 PM MERCHANDISE CARRIER 80 mg benzocaine-menthoL 15-3.6 mg per lozenge [...] Use Only Refrigerate Given 09/19/2023 1:13 PM MERCHANDISE CARRIER 1,000 mL Chest ceFAZolin 1 g in NaCl 0.9% irrigation pour bottle As needed, Starting on Sun09/19/23 at 1550, Intra-Op Given 09/19/2023 3:50 PM MERCHANDISE CARRIER 1,000 mL cellulose, oxidized 6 X 9 pad (SURGICEL NU-KNIT) As needed, Starting on Sun09/19/23 at 1313, Intra-Op Given 09/19/2023 1:13 PM MERCHANDISE CARRIER 1 each Chest electrolyte-A solution (PLASMA-LYTE A) Continuous Infusion: Per Instructions PRN, Starting on Sun09/19/23 at 1015, Intra-Op New Bag 09/19/2023 10:15 AM MERCHANDISE CARRIER 500 mL Other finasteride tablet 5 mg (PROSCAR) 5 mg, oral, Daily, First dose on Sun09/21/23 at 0900, Hold with indwelling urinary catheter See tube feeding guidelines for tube feeding administration instructions. Given 09/26/2023 8:00 AM MERCHANDISE CARRIER 5 mg Given 09/25/2023 8:07 AM MERCHANDISE CARRIER 5 mg Given 09/24/2023 8:39 AM MERCHANDISE CARRIER 5 mg furosemide tablet 20 mg (LASIX) 20 mg, oral, Daily, First dose on Sun09/26/23 at 0900 Given 09/26/2023 8:01 AM MERCHANDISE CARRIER 20 mg HYDROmorphone (PF) injection 0.2 mg [...] writing Insulin orders Given 09/26/2023 11:39 AM MERCHANDISE CARRIER 4 Units Left Upper Arm (Back ) Given 09/26/2023 7:59 AM MERCHANDISE CARRIER 2 Units Le ft Upper Arm (Back) Given 09/25/2023 5:42 PM MERCHANDISE CARRIER 4 Units Le ft Upper Arm (Back) ipratropium-albuteroL 0.5-2.5 mg/3 mL nebulizer solution 3 mL (DUONEB) 3 mL, nebulization, 3 times daily, First dose on Sun09/24/23 at 1015 Given 09/25/2023 8:05 AM MERCHANDISE CARRIER 3 mL Given 09/24/2023 8:34 PM MERCHANDISE CARRIER 3 mL Given 09/24/2023 10:23 AM MERCHANDISE CARRIER 3 mL lactulose solution 20 g (CHRONULAC) [...] 12 hours Medication Applied 09/20/2023 1:42 AM MERCHANDISE CARRIER 1 patch Chest melatonin tablet 10 mg 10 mg, oral, Bedtime PRN, sleep, Starting on Sun23 at 2007 Given 09/20/2023 8:44 PM MERCHANDISE CARRIER 10 mg metoclopramide tablet 5 mg (REGLAN) 5 mg, oral, Every 8 hours PRN, hiccups, Starting on 09/25/23 at 1053 metoprolol tartrate tablet 25 mg (LOPRESSOR) 25 mg, oral, 2 times daily, First dose (after last modification) on Carissa 09/20/23 at 2100 Given 09/26/2023 8:00 AM MERCHANDISE CARRIER 25 mg Given 09/25/2023 8:17 PM MERCHANDISE CARRIER 25 mg Given 09/25/2023 8:04 AM MERCHANDISE CARRIER 25 mg naloxone injection 0.2 mg (NARCAN) [...] take oral medications. Given 09/20/2023 1:42 AM MERCHANDISE CARRIER 10 mg oxyCODONE IR tablet 5 mg [...] or split tablet. Given 09/26/2023 6:59 AM MERCHANDISE CARRIER 40 mg Given 09/25/2023 6:54 AM MERCHANDISE CARRIER 40 mg Given 09/24/2023 5:23 AM MERCHANDISE CARRIER 40 mg polyethylene glycol powder packet 17 [...] For restless legs Given 09/26/2023 1:19 PM MERCHANDISE CARRIER 0.5 mg Given 09/26/2023 7:58 AM MERCHANDISE CARRIER 0.5 mg Given 09/25/2023 8:17 PM MERCHANDISE CARRIER 0.5 mg sennosides-docusate sodium 8.6-50 mg per tablet 2 tablet (SENOKOT-S) 2 tablet, oral, Daily at bedtime, First dose (after last modification) on Sun09/24/23 at 2100, Hold for loose stool simethicone chewable tablet 125 mg (MYLICON) 125 mg, oral, Every 6 hours PRN, flatulence, Starting on Sun09/19/23 at 1707 Given 09/20/2023 8:03 AM MERCHANDISE CARRIER 125 mg tamsulosin 24 hr capsule 0.4 mg (FLOMAX) 0.4 mg, oral, Daily, First dose on Sun09/21/23 at 0900, Hold if indwelling urinary catheter in place Swallow whole. Do NOT crush, chew or open capsule. Given 09/26/2023 8:00 AM MERCHANDISE CARRIER 0.4 mg Given 09/25/2023 8:04 AM MERCHANDISE CARRIER 0.4 mg Given 09/24/2023 8:39 AM MERCHANDISE CARRIER 0.4 mg thrombin (human plasma)-vzjzefhakh-gjudkwlsx-Ok topical solution ([facility]) As needed, Starting on Sun09/19/23 at 1214, Intra-Op Given 09/19/2023 12:14 PM MERCHANDISE CARRIER 10 mL Ch est vancomycin powder As needed, Starting on Sun09/19/23 at 1315, Intra-Op Given 09/19/2023 1:55 PM MERCHANDISE CARRIER 1 g vancomycin powder As needed, Starting on Sun09/19/23 at 1611, Intra-Op Given 09/19/2023 4:11 PM MERCHANDISE CARRIER 1 g warfarin management (COUMADIN) oral, Daily, First dose on Sun09/21/23 at 0745, Pharmacist to Dose: Yes, Target INR: 2 - 3, Comorbidities that constitute Warfarin Sensitivity: Post-cardiac valve surgery, Indication: Aortic valve - Mechanical, Therapy type: New Warfarin therapy documented in this encounter Active and Recently Administered Medications Times are shown in MERCHANDISE CARRIER. Scheduled Medication Order 09/24/2023 09/25/202309/26/2023 acetaminophen tablet 1,000 mg (TYLENOL)(Linked Group 1) 1,000 mg, oral, Every 6 hours, First dose (after last modification) on Sun09/21/23 at 1800 0141 (Given - Provider: Liliana Galindo R.N.)0838 (Given - Provider: Radha Lara RSammi)1545 (Given - Provider: Amita Mercado RJarrettNJarrett)2034 (Given - Provider: Ar Mills R.N.) 0548 (Given - Provider: Ar Mills R.N.)1349 (Given - Provider: Felipe LoganN.)1734 (Given - Provider: Kelsey Downing R.N.) 0055 [...] days 0839 (Given - Provider: Radha Lara RSammi)2032 (Given - Provider: Ar Mills R.N.) 0804 (Given - Provider: Kelsey Downing RSammi)2016 (Given - Provider: Ar Mills R.N.) aspirin [...] at 0900 0801 (Given - Provider: Radha J Kirtz, R.N.) insulin aspart U-100 injection 0-13 Units [...] Provider: Kelsey Downing R.N.)1354 (Given - Provider: Kesley Downing R.N.)1742 (Given - Provider: Kelsey Downing R.N.) 0759 (Given - Provider: Radha Lara R.N.)1139 (Given - Provider: Valorie Osman RJarrettNJarrett) ipratropium-albuteroL [...] Lara R.N.)1545 (Given - Provider: Amita Mercado RMihir.)2034 (Given - Provider: Ar Mills R.N.) 0804 (Given - Provider: Kelsey Downing R.N.)1351 (Given - Provider: Kelsey Downing R.N.)2016 (Given - Provider: Ar Mills R.N.) 0758 (Given - Provider: Radha Lara R.N.)1319 (Given - Provider: Valorie sOman RJarrettNJarrett) sennosides-docusate sodium 8.6-50 mg per tablet 2 [...] Sun09/24/23 at 0950 1545 (Given - Provider: Amiat Mercado R.N.) benzocaine-menthoL 15-3.6 mg per lozenge [...] PRN, hiccups, Starting on Sun09/25/23 at 1053 naloxone injection 0.2 mg (NARCAN) [...] documented as of this encounter Care Teams Gastroenterology Nurse Relationship Specialty Start Date End Date Elsewhere, Pcp PCP - General Internal Medicine 08/19/23 09/27/23 documented as of this encounter
--- OUTSIDE RECORDS SUMMARY | 2023-12-30 07:28 | XMS_ITS | Encounter Summary ---
Author Name Unknown Organization [facility] Address [address] [place] [address] Care Team Providers Care Tire Design Engineer Name Role Phone Elsewhere, Pcp Primary Care Provider Unavailabl e Reason for Referral * Outpatient (Routine) - Closed Specialty Diagnoses / Procedures Referred By Contac t Referred To Contact Anesthesiology Diagnoses Stenosis Aortic Valve Acquired Acquired Aortic Valve Disorder Norman Roca APRN, C.N.P., D.N.P. [address] [place] [phone] [facility] Referral ID Status Reason Start Date Expiration Date Visits Re quested Visits Authorized [id number] Closed 09/05/2023 09/04/2024 1 1 * Outpatient (Routine) - Closed Specialty Diagnoses / Procedures Referred By Contac t Referred To Contact Pharmacy Diagnoses Stenosis Aortic Valve Acquired Acquired Aortic Valve Disorder Norman Roca APRN, C.N.P., D.N.P. [address] [place] [phone] [facility] Referral ID Status Reason Start Date Expiration Date Visits Re quested Visits Authorized [id number] Closed 09/05/2023 09/04/2024 1 1 * Specialty Diagnoses / Procedures Referred By Contac t Referred To Contact Norman Roca APRN, C.NKory, D.N.P. [address] [place] [address] [facility] Referral ID Status Reason Start Date Expiration Date Visits Re quested Visits Authorized Encounter Details Date Type Department Care Team (Late st Contact Info) Description 09/05/2023 3:00 PM CDT Office Visit Department of Cardiovascular Surgery in [place], [place] [address] [place] [address] Norman Roca APRN, C.N.P., Emilia.N.P. [address] [place] [phone] Acquired Aortic Valve Disorder (Primary Dx); Stenosis [...] your living situation today? I have a [facility] place to live 08/29/2023 [...] of the patient today. Time includes both qgw-yirv-jo-face ikucidm-mq-extj patient care. Bret Roca APRN, Cata.N.Fritz., D.N.P. documented in this encounter Plan of Treatment Upcoming Encounters Date Type Department Care Team (Late st Contact Info) Description 01/04/2024 10:30 AM GEOLOGY FACULTY MEMBER Comprehensive Visit Division of Hematology in [place], [place] [address] [place] [address] Brandy Real M.D., M.B.A. [address] [place] [address] Scheduled Referrals Name Type Priority Associated Diagnoses [...] (with Reflex Antibody ID) (09/18/2023 9:04 AM GEOLOGY FACULTY MEMBER) ABORh A Neg Not applicable 09/18/2023 10:53 AM GEOLOGY FACULTY MEMBER STRM Antibody Screen Negative Negative 09/18/2023 11:09 AM GEOLOGY FACULTY MEMBER STRM Type & Screen Expiration 11/16/2023 23:59 09/18/2023 10:53 AM GEOLOGY FACULTY MEMBER STRM Testing Location Mercedes DEFAULT 09/18/2023 10:24 AM GEOLOGY FACULTY MEMBER STRM Blood (Blood, Venous) 09/18/2023 9:04 AM GEOLOGY FACULTY MEMBER 09/18/2023 10:24 AM GEOLOGY FACULTY MEMBER Radha Mendez APRNN.P., D.N.P. L AB BLOOD BANK TEST ORDERABLES [facility] [place] [address] [place] [address], [facility] STRM [facility] [address] [place] [address] * (ABNORMAL) Basic Metabolic Panel (09/18/2023 9:04 AM GEOLOGY FACULTY MEMBER) Pathologist [facility] Potassium, S 4.5 3.6 - 5.2 mmol/L 09/18/2023 10:19 AM GEOLOGY FACULTY MEMBER DTL Sodium, S 141 135 - 145 mmol/L 09/18/2023 10:19 AM GEOLOGY FACULTY MEMBER DTL Chloride, S 106 98 - 107 mmol/L 09/18/2023 10:19 AM GEOLOGY FACULTY MEMBER DTL Bicarbonate, S 26 22 - 29 mmol/L 09/18/2023 10:19 AM GEOLOGY FACULTY MEMBER DTL Anion Gap 9 7 - 15 09/18/2023 10:19 AM GEOLOGY FACULTY MEMBER DTL BUN (Blood Urea Nitrogen), S 20 8 - 24 mg/dL 09/18/2023 10:19 AM GEOLOGY FACULTY MEMBER DTL Creatinine 1.76(H) 0.74 - 1.35 mg/dL 09/18/2023 10:19 AM GEOLOGY FACULTY MEMBER DTL Estimated GFR (eGFR) 41(L) >=60 mL/min/BSA 09/18/2023 10:19 AM GEOLOGY FACULTY MEMBER DTL Comment: Estimated GFR calculated using the 2020 CKD_EPI creatinine equation. Calcium, Total, S 9.1 8.8 - 10.2 mg/dL 09/18/2023 10:19 AM GEOLOGY FACULTY MEMBER DTL Glucose, S 196(H) 70 - 140 mg/dL 09/18/2023 10:19 AM GEOLOGY FACULTY MEMBER DTL Blood (Blood, Venous) 09/18/2023 9:04 AM GEOLOGY FACULTY MEMBER 09/18/2023 9:54 AM GEOLOGY FACULTY MEMBER Cata Mendez APRN.N.P., D.N.P. L AB BLOOD ADD-ON [facility] [place] [address] [place] [address], [facility] DTL [facility] 200 [place] [address] * (ABNORMAL) CBC without Differential (09/18/2023 9:04 AM GEOLOGY FACULTY MEMBER) Hemoglobin 12.0(L) 13.2 - 16.6 g/dL 09/18/2023 10:00 AM GEOLOGY FACULTY MEMBER DTL Hematocrit 35.8(L) 38.3 - 48.6 % 09/18/2023 10:00 AM GEOLOGY FACULTY MEMBER DTL Erythrocytes 3.94(L) 4.35 - 5.65 x10(12)/L 09/18/2023 10:00 AM GEOLOGY FACULTY MEMBER DTL MCV 90.9 78.2 - 97.9 fL 09/18/2023 10:00 AM GEOLOGY FACULTY MEMBER DTL RBC Distrib Width 12.2 11.8 - 14.5 % 09/18/2023 10:00 AM GEOLOGY FACULTY MEMBER DTL Platelet Count 182 135 - 317 x10(9)/L 09/18/2023 10:00 AM GEOLOGY FACULTY MEMBER DTL Leukocytes 5.2 3.4 - 9.6 x10(9)/L 09/18/2023 10:00 AM GEOLOGY FACULTY MEMBER DTL Blood (Blood, Venous) 09/18/2023 9:04 AM GEOLOGY FACULTY MEMBER 09/18/2023 9:35 AM GEOLOGY FACULTY MEMBER Norman Roca APRN, C.N.P., D.N.P. L AB BLOOD ADD-ON [facility] [place] 200 [place] [address], [facility] DTL [facility] 200 [place] [address] * (ABNORMAL) CBC-Preop with reflex anemia panel [...] (Blood, Venous) 09/05/2023 3:22 PM CDT Narrative [facility] [place] - 09/05/2023 3:39 PM CDT Specimen Information: Specimen ID: [id number] Specimen Type: Blood Specimen Collection Start Date: 09/05/2023 ??3:22 PM Specimen ID: [id number] Specimen Type: Blood Specimen Collection Start Date: 09/05/2023 ??3:22 PM Specimen Received Date: 09/05/2023 ??3:32 PM Specimen ID: [id number] Specimen Type: Blood Specimen Collection Start Date: 09/05/2023 ??3:22 PM Cata Mendez APRN.N.Fritz., D.N.P. L AB BLOOD ADD-ON [facility] [place] [address] [place] [address], [facility] [address] [place] [address] documented in this encounter Visit Diagnoses Diagnosis Acquired Aortic Valve Disorder- Primary Stenosis Aortic Valve Acquired Stenosis Aortic Valve Acquired Acquired Aortic Valve Disorder documented in this encounter Additional Health Concerns Assessment Noted Time PHQ-9 Depression Total Score: 0 08/20/20 23 12:00 PM CDT documented as of this encounter Care Teams Tire Design Engineer Relationship Specialty Start Date End Date Elsewhere, Pcp PCP - General Internal Medicine 08/19/23 09/27/23 documented as of this encounter
--- OUTSIDE RECORDS SUMMARY | 2023-12-30 07:28 | XMS_ITS | Encounter Summary ---
Author Name Unknown Organization [facility] Address [address] [place] [address] Care Team Providers Care Building Construction Teacher Name Role Phone Elsewhere, Pcp Primary Care Provider Unavailabl e Encounter Details Date Type Department Care Team (Late st Contact Info) Description 09/05/2023 3:10 PM CDT Lab Department of Laboratory Medicine and Pathology, [facility], in [place], [place] [address] [place] [address] Norman Roca, PIERRE, C.N.P., D.N.P. [address] [place] [phone] Stenosis Aortic Valve Acquired; Acquired Aortic Valve [...] your living situation today? I have a [facility] place to live 08/29/2023 Sex and Gender Information Value Date Recorded Sex Assigned at Male 08/29/2023 11:06 AM CDT Gender Identity Male 08/29/2023 11:06 AM CDT Sexual Orientation Straight 08/29/2023 11 :06 AM CDT documented as of this encounter Plan of Treatment Upcoming Encounters Date Type Department Care Team (Late st Contact Info) Description 01/04/2024 10:30 AM HOME TEACHING GRADES 9 THRU 12 TEACHER Comprehensive Visit Division of Hematology in [place], [place] [address] [place] [phone] Brandy Real M.D., M.B.A. [address] [place] [phone] documented as of this encounter Procedures Procedure [...] its performance characteristics determined by [facility] in a manner consistent with CLIA requirements. This test has not been cleared or approved by the U.S. Food and Drug Administration. Blood 09/05/2023 3:22 PM CDT 09/06/2023 7:43 AM CDT Norman Roca APRN, C.N.P., D.N.P. L AB BLOOD ADD-ON Performing Organization Address City/State/[facility] Co de Phone Number [facility] [address] [place] [address], [facility] DT 200 [facility] 200 [place] [address] * (ABNORMAL) Iron and Total Iron-Binding Capacity [...] L AB BLOOD ADD-ON Performing Organization Address City/[facility]/ZIP Co de Phone Number [facility] 200 [place] [address], [facility] 200 [place] [address] * Ferritin (09/05/2023 3:22 PM CDT) Ferritin, S 256 31 - 409 mcg/L 09/05/2023 4:04 PM CDT DTL Blood 09/05/2023 3:22 PM CDT 09/05/2023 3:41 PM CDT Norman Roca APRN, C.N.P., D.N.P. L AB BLOOD ADD-ON Performing Organization Address City/[facility]/ZIP Co de Phone Number [facility] 200 [place] [address], [facility] 200 [place] [address] * (ABNORMAL) Reticulocyte Profile (09/05/2023 3:22 PM [...] CDT 09/05/2023 3:32 PM CDT Norman Roca APRN C.N.P., D.N.P. L AB BLOOD ADD-ON Performing Organization Address [facility] de Phone Number [facility] [address] DTL [facility] 200 [place] [address] * (ABNORMAL) Vitamin B12 Assay (09/05/2023 3:22 PM CDT) [facility] Vitamin B12 Assay, S 123(L) 180 - [...] CDT 09/05/2023 3:41 PM CDT Norman Roca APRN C.N.P., D.N.P. L AB BLOOD ADD-ON Performing Organization Address City/[facility] Co de Phone Number [facility] 200 [place] [address], [facility] 200 [place] [address] * CRP (C-Reactive Protein) (09/05/2023 3:22 PM CDT) [facility] C-Reactive Protein (CRP), S <3.0 <5.0 mg/L 09/05/2023 4:04 PM CDT DTL Blood 09/05/2023 3:22 PM CDT 09/05/2023 3:41 PM CDT Norman Roca APRN, Cata.N.P., D.N.P. L AB BLOOD ADD-ON [facility] 200 [place], [place] [phone] [place] [address] 200 [place] [address] * Folate (09/05/2023 3:22 PM CDT) Pathologist [facility] Folate, S 14.5 >=4.0 mcg/L 09/06/2023 7: 42 AM CDT DTL Blood 09/05/2023 3:22 PM CDT 09/05/2023 3:41 PM CDT Cata Mendez APRN.N.P., D.N.P. L AB BLOOD ADD-ON [facility] 200 [place], [place] [phone] [place] [address] 200 [place] [address] * (ABNORMAL) CBC-Preop with reflex anemia panel (09/05/2023 3:22 PM CDT) [facility] Hemoglobin 11.9(L) 13.2 - 16.6 g/dL 09/05/2023 [...] (Blood, Venous) 09/05/2023 3:22 PM CDT Narrative [facility] - 09/05/2023 3:39 PM CDT Specimen Information: Specimen ID: [id number] Specimen Type: Blood Specimen Collection Start Date: 09/05/2023 ??3:22 PM Specimen ID: [id number] Specimen Type: Blood Specimen Collection Start Date: 09/05/2023 ??3:22 PM Specimen Received Date: 09/05/2023 ??3:32 PM Specimen ID: [id number] Specimen Type: Blood Specimen Collection Start Date: 09/05/2023 ??3:22 PM Norman Roca APRN C.N.P., D.N.P. L AB BLOOD ADD-ON [facility] [address] [place] [address], [facility] [address] [place] [address] documented in this encounter Visit Diagnoses Diagnosis Stenosis Aortic Valve Acquired Acquired Aortic Valve Disorder documented in this encounter Additional Health Concerns Assessment Noted Time PHQ-9 Depression Total Score: 0 08/20/20 12:00 PM CDT documented as of this encounter Care Teams Building Construction Teacher Relationship Specialty Start Date End Date Elsewhere, Pcp PCP - General Internal Medicine 08/19/23 09/27/23 documented as of this encounter
--- OUTSIDE RECORDS SUMMARY | 2023-12-30 07:28 | XMS_ITS | Encounter Summary ---
Author Name Unknown Organization [facility] Address [address] [place] [address] Care Team Providers Care Fiber Worker Name Role Phone Elsewhere, Pcp Primary Care Provider Unavailabl e Encounter Details Date Type Department Care Team (Late st Contact Info) Description 09/18/2023 9:00 AM WORKFORCE DEVELOPMENT ASSISTANT Education Department of Cardiovascular Surgery in [place], [place] [address] [place] [phone] Norman Roca, PIERRE, C.N.P., D.N.P. [address] [place] [phone] Dona Kong, R.N. [address] [place] [phone] Stenosis Aortic Valve Acquired; Acquired Aortic Valve [...] Comments Blood Pressure 143/81 09/18/2023 9:24 AM WORKFORCE DEVELOPMENT ASSISTANT Pulse 80 09/18/2023 9:24 AM WORKFORCE DEVELOPMENT ASSISTANT Temperature 36.6 ??C (97.8 ??F) 09/18/2023 9:24 AM CS T Respiratory Rate - - Oxygen Saturation 97% 09/18/2023 9:24 AM WORKFORCE DEVELOPMENT ASSISTANT Inhaled Oxygen Concentration - - Weight 85.6 kg (188 lb 13.2 oz) 09/18/2023 9:24 AM WORKFORCE DEVELOPMENT ASSISTANT Height 173.2 cm (5' 8.19) 09/18/2023 9:24 AM CS T Body Mass Index 28.55 09/18/2023 9:24 AM WORKFORCE DEVELOPMENT ASSISTANT documented in this encounter Progress Notes [...] for Remote Patient Monitoring. Dona Kong R.N. FORCE DEVELOPMENT ASSISTANT documented in this encounter Plan of Treatment Upcoming Encounters Date Type Department Care Team (Late st Contact Info) Description 01/04/2024 10:30 AM WORKFORCE DEVELOPMENT ASSISTANT Comprehensive Visit Division of Hematology in [place], [place] [address] [place] [address] Brandy Real M.D., M.B.A. [address] [place] [address] documented as of this encounter Visit Diagnoses Diagnosis Stenosis Aortic Valve Acquired Acquired Aortic Valve Disorder documented in this encounter Additional Health Concerns Assessment Noted Time PHQ-9 Depression Total Score: 1 09/10/20 23 2:06 PM CDT documented as of this encounter Care Teams Fiber Worker Relationship Specialty Start Date End Date Elsewhere, Pcp PCP - General Internal Medicine 08/19/23 09/27/23 documented as of this encounter
--- OUTSIDE RECORDS SUMMARY | 2023-12-30 07:28 | XMS_ITS | Encounter Summary ---
Author Name Unknown Organization [facility] Address [address] [place] [address] Care Team Providers Care Film Flat Inspector Name Role Phone Elsewhere, Pcp Primary Care Provider Unavailabl e Encounter Details Date Type Department Care Team ([facility] st Contact Info) Description 09/06/2023 Orders Only Preoperative Evaluation Center in [place], [place] [address] [place] [address] Fanny Villalobos, PIERRE, C.N.P., D.N.P. [address] [place] [address] Anemia In Chronic Kidney Disease (Primary Dx); [...] your living situation today? I have a [facility] place to live 08/29/2023 Sex and Gender Information Value Date Recorded Sex Assigned at Male 08/29/2023 11:06 AM CDT Gender Identity Male 08/29/2023 11:06 AM CDT Sexual Orientation Straight 08/29/2023 11 :06 AM CDT documented as of this encounter Plan of Treatment Upcoming Encounters Date Type Department Care Team (Late st Contact Info) Description 01/04/2024 10:30 AM RAG PRODUCTION WORKER Comprehensive Visit Division of Hematology in [place], [place] [address] [place] [address] Brandy Real M.D., M.B.A. 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
--- OUTSIDE RECORDS SUMMARY | 2023-12-30 07:28 | XMS_ITS | Encounter Summary ---
Author Name Unknown Organization [facility] Address [address] [place] [address] Care Team Providers Care Learning Disabilities Teacher Name Role Phone Elsewhere, Pcp Primary Care Provider Unavailabl e Reason for Visit * Outpatient (Routine) - Closed Specialty Diagnoses / Procedures Referred By Sebas t Referred To Contact Anesthesiology Diagnoses Stenosis Aortic Valve Acquired Acquired Aortic Valve Disorder Norman Roca APRN, C.N.P., D.N.P. [address] [place] [phone] [facility] Referral ID Status Reason Start Date Expiration Date Visits Re quested Visits Authorized [id number] Closed 09/05/2023 09/04/2024 1 1 Encounter Details Date Type Department Care Team (Late st Contact Info) Description 09/11/2023 8:45 AM CDT Telemedicine Preoperative Evaluation Center in [place], [place] [address] [place] [phone] Norman Roca APRN, C.N.P., D.N.P. [address] [place] [phone] Fanny Villalobos APRN, C.N.P., D.N.P. [address] [place] [phone] Anemia Of Chronic Disease (Primary Dx); Anemia [...] living situation today? I have a [facility] place to live 08/29/2023 Sex and [...] CRP <3.0 09/05/2023 EGFR 38 (L) 08/22/2023 [id number] 123 (L) 09/05/2023 FOLATE 14.5 09/05/2023 Family/personal [...] an EPO injection that day in the [facility] infusion therapy Center. RECOMMENDATIONS: Anemia Treatment Recommendations: 2000 mcg vitamin B12 daily until surgery, may schedule EPO injection September 18 pending hemoglobin result. PATIENT EDUCATION: Patient education 0137-10 Treating anemia before surgery sent to patient via portal and reviewed with patient. All questions have been answered. Consult conducted via real-time audio/video technology by Fanny Stanton APRN, C.N.P., Emilia.[facility] to the patient in the patient's home. documented in this encounter Plan of Treatment Upcoming Encounters Date Type Department Care Team (Late st Contact Info) Description 01/04/2024 10:30 AM SUPERVISOR WHITE SUGAR Comprehensive Visit Division of Hematology in [place], [place] [address] [place] [address] Brandy Real M.D., M.B.A. [address] [place] [address] documented as of this encounter Visit Diagnoses [...] documented as of this encounter Care Teams Learning Disabilities Teacher Relationship Specialty Start Date End Date Elsewhere, Pcp PCP - General Internal Medicine 08/19/23 09/27/23 documented as of this encounter
--- OUTSIDE RECORDS SUMMARY | 2023-12-30 07:28 | XMS_ITS | Encounter Summary ---
Author Name Unknown Organization [facility] Address [address] [place] [address] Care Team Providers Care Customer Experience Retail Clerk Name Role Phone Elsewhere, Pcp Primary Care Provider Unavailabl e Reason for Visit * Outpatient (Routine) - Closed Specialty Diagnoses / Procedures Referred By Sebas t Referred To Contact Cardiovascular Surgery Diagnoses Stenosis Aortic Valve Acquired Billy Segal APRN, C.N.P., D.N.P. [address] [place] [phone] [facility] Referral ID Status Reason Start Date Expiration Date Visits Re quested Visits Authorized [id number] Closed 08/22/2023 08/21/2024 1 1 Encounter Details Date Type Department Care Team (Latest Contact Info) Description 09/05/2023 2:30 PM CDT Comprehensive Visit Department of Cardiovascular Surgery in [place], [place] [address] [place] [phone] Sarah Miller M.D., M.P.H. [address] [place] [phone] Atrial Fibrillation Paroxysmal (HCC) (Primary [...] situation today? I have a [facility] place to live 08/29/2023 Sex and [...] st Contact Info) Description 01/04/2024 10:30 AM REFERENCE DATA EXPERT Comprehensive Visit Division of Hematology in [place], [place] [address] [place] [address] Brandy Real M.D., M.B.A. [address] [place] [address] documented as of this encounter Visit Diagnoses [...] as of this encounter Care Teams Customer Experience Retail Clerk Relationship Specialty Start Date End Date Elsewhere, Pcp PCP - General Internal Medicine 08/19/23 09/27/23 documented as of this encounter
--- OUTSIDE RECORDS SUMMARY | 2023-12-30 07:28 | XMS_ITS | Encounter Summary ---
Author Name Unknown Organization [facility] Address [address] [place] [address] Care Team Providers Care Shaper And Presser Name Role Phone Elsewhere, Pcp Primary Care Provider Unavailabl e Reason for Visit * Auth/Cert (Routine) Specialty Diagnoses / Procedures Referred By Sebas t Referred To Contact Diagnoses Stenosis Aortic Valve Acquired Stenosis Aortic Valve Acquired [I35.0] Procedures WA RPLC AORTIC VLV W PROSTH VLV WA COR ART BYPASS 1 COR JORDAN GRAFT WA REOP COR ART BYP/VALVE PROC WA ENDO SURG W VA HARVEST CABG WA EXCL DAHIANA OPN OTH PX ANY METH REPLACEMENT AORTIC VALVE 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 - REDO LIGATION LEFT ATRIAL APPENDAGE ISOLATION PULMONARY VEIN Referral ID Status Reason Start Date Expiration Date Visits Re quested Visits Authorized [id number] 1 1 Encounter Details Date Type Department Care Team (Late st Contact Info) Description 09/19/2023 7:30 AM GLASS CUT OFF SUPERVISOR Anesthesia Event [facility] [address] [place] [phone] Rowena Antonio M.D. [address] [place] [phone] Peyton Corbin, Ryan.Tab., L.R.T. [address] [place] [phone] Anesthesia Record Procedure Summary Procedure Name Responsible [...] Chlorhexidine (Preferred); Technique: Anatomical landmarks; [place] by: [facility] [place] Insertion Attempts: 1; Removal Date: 09/21/23; Removal [...] * Anesthesia Postprocedure Evaluation - Miguel Vides, CANDY ROLLER, BERTO, DNAP - 09/19/2023 5:19 PM CST Patient: Jong Nieto Steven Procedure Summary Date: 09/19/23 Room / Location: [place] [address] / [facility] [place], [place] Anesthesia Start: 729 Anesthesia Stop: 1718 [...] status: hypo or hypervolemic requiring ongoing treatment S CUT OFF SUPERVISOR * Anesthesia Procedure Notes - Radha Iqbal M.D. - 09/19/2023 8:55 AM GLASS CUT OFF SUPERVISOR Associated Order(s): Airway Airway Date/Time: 09/19/2023 7:52 [...] Procedure outcome: successful Airway event: no complications S CUT OFF SUPERVISOR * Anesthesia Procedure Notes - Radha Iqbal M.D. - 09/19/2023 8:15 AM GLASS CUT OFF SUPERVISOR Associated Order(s): Invasive Catheter Invasive Catheter Date/Time: [...] consultant was present for the entire procedure. S CUT OFF SUPERVISOR * Anesthesia Procedure Notes - Radha Iqbal M.D. - 09/19/2023 8:11 AM GLASS CUT OFF SUPERVISOR Associated Order(s): Invasive Catheter Invasive Catheter Date/Time: [...] consultant was present for the entire procedure. S CUT OFF SUPERVISOR * Anesthesia Procedure Notes - Radha Iqbal M.D. - 09/19/2023 7:58 AM GLASS CUT OFF SUPERVISOR Associated Order(s): EDMUNDO EDMUNDO Date/Time: 09/19/2023 7:55 [...] consultant was present for the entire procedure. S CUT OFF SUPERVISOR * Anesthesia Preprocedure Evaluation - Deja Barney M.D. - 09/19/2023 7:33 AM CST Preprocedure Anesthesia & H&P Assessment Procedure Summary Date/Time: 09/19/23 0700 Procedures: REPLACEMENT AORTIC VALVE, POSSIBLE AORTIC ROOT ENLARGEMENT. (Chest) CORONARY ARTERY BYPASS GRAFT X1, VEIN. (Chest) LIGATION LEFT ATRIAL APPENDAGE. ISOLATION PULMONARY VEIN. (Chest) Diagnosis: Stenosis Aortic Valve Acquired [I35.0] Pre-op diagnosis: Stenosis Aortic Valve Acquired [I35.0]. Location: [place] [address] / [facility] [place], [place] Providers: Sarah Miller M.D., M.P.H. Pertinent [...] with patient /legal guardian or through an healthcare or medical. Risks/Benefits/Alternatives of Blood transfusion discussed with patient / legal guardian, includingan opportunity to ask questions and/or decline some or all transfusion therapies. The patient / legal guardian consented to the use of all blood products, as deemed medically necessary Approval to Proceed: approved for anesthesia S CUT OFF SUPERVISOR * Anesthesia Preprocedure Evaluation - Deja Barney M.D. - 09/19/2023 7:15 AM CST Preprocedure Anesthesia & H&P Assessment Procedure Summary Anesthesia Start Date/Time: 09/19/23729 Procedures: REPLACEMENT AORTIC VALVE, POSSIBLE AORTIC ROOT ENLARGEMENT. (Chest) CORONARY ARTERY BYPASS GRAFT X1, VEIN. (Chest) LIGATION LEFT ATRIAL APPENDAGE. ISOLATION PULMONARY VEIN. (Chest) Diagnosis: Stenosis Aortic Valve Acquired [I35.0] Pre-op diagnosis: Stenosis Aortic Valve Acquired [I35.0]. Location: [place] [address] / [facility] [place], [place] Providers: Sarah iMller M.D., M.P.H. Pertinent components of the patient's [...] with patient /legal guardian or through an healthcare or medical. Risks/Benefits/Alternatives of Blood transfusion discussed with patient / legal guardian, includingan opportunity to ask questions and/or decline some or all transfusion therapies. The patient / legal guardian consented to the use of all blood products, as deemed medically necessary Approval to Proceed: approved for anesthesia S CUT OFF SUPERVISOR documented in this encounter Plan of Treatment Upcoming Encounters Date Type Department Care Team (Late st Contact Info) Description 01/04/2024 10:30 AM GLASS CUT OFF SUPERVISOR Comprehensive Visit Division of Hematology in [place], [place] [address] [place] [phone] Brandy Real M.D., M.B.A. [address] [place] [phone] documented as of this encounter Procedures Procedure Name Priority Date/Time Associated Diagnosis Comments MC ANE CENTRAL LINE GENERIC PERFORMABLE Routine 09/19/2023 8:06 AM GLASS CUT OFF SUPERVISOR LDA ANE INTRODUCER ONLY Routine 09/19/2023 8:06 AM GLASS CUT OFF SUPERVISOR LDA ANE PA CATH Routine 09/19/2023 8:06 AM GLASS CUT OFF SUPERVISOR MC ANE INVASIVE CATH WITH ULTRASOUND Routine 09/19/2023 8:06 AM GLASS CUT OFF SUPERVISOR WA INS/PLC FLOW DIR CATH Routine 09/19/2023 8:06 AM GLASS CUT OFF SUPERVISOR WA US GUIDE VASC ACCESS Routine 09/19/2023 8:06 AM GLASS CUT OFF SUPERVISOR WA ECHO EDMUNDO 2D PLC ONLY Routine 09/19/2023 7:55 AM GLASS CUT OFF SUPERVISOR AIRWAY MANAGEMENT Routine 09/19/2023 7:5 2 AM GLASS CUT OFF SUPERVISOR LDA ANE ARTERIAL LINE INSERTION Routine 09/19/2023 7:43 AM GLASS CUT OFF SUPERVISOR WA ARTL CATH/CNULA MONITOR PERC Routine 09/19/2023 7:43 AM GLASS CUT OFF SUPERVISOR documented in this encounter Results * WA US GUIDE VASC ACCESS, WA INS/PLC FLOW DIR CATH, MC ANE INVASIVE CATH WITH ULTRASOUND, LDA ANE PACATH, LDA ANE INTRODUCER ONLY, MC ANE CENTRAL LINE GENERIC PERFORMABLE (09/19/2023 8:06 AM GLASS CUT OFF SUPERVISOR) Narrative Deja Barney M.D. - 09/19/2023 8:06 AM GLASS CUT OFF SUPERVISOR Radha Iqbal M.D. ? 09/19/2023 ??8:13 AM [...] Iqbal M.D. PROCEDURE/MINOR SURG ICAL ORDERABLES * WA ECHO EDMUNDO 2D PLC ONLY (09/19/2023 7:55 AM GLASS CUT OFF SUPERVISOR) Deja Mari M.D. - 09/19/2023 7:55 AM GLASS CUT OFF SUPERVISOR Radha Iqbal M.D. ? 09/19/2023 ??8:01 AM [...] ORDERABLE S * Airway (09/19/2023 7:52 AM GLASS CUT OFF SUPERVISOR) Narrative Radha Iqbal M.D. - 09/19/2023 7:52 AM GLASS CUT OFF SUPERVISOR Radha Iqbal M.D. ? 09/19/2023 ??8:56 AM [...] Radha Iqbal M.D. ANESTHESIA ORDERABLE S * WA ARTL CATH/CNULA MONITOR PERC, LDA ANE ARTERIAL LINE INSERTION (09/19/2023 7:43 AM GLASS CUT OFF SUPERVISOR) Narrative Deja Barney M.D. - 09/19/2023 7:43 AM GLASS CUT OFF SUPERVISOR Radha Iqbal M.D. ? 09/19/2023 ??8:19 AM [...] 1335, Anesthesia Intra-op Given 09/19/2023 1:35 PM GLASS CUT OFF SUPERVISOR 1,000 mg caffeine-sodium benzoate injection intravenous, As needed, Starting on Sun09/19/23 at 1712, Anesthesia Intra-op Given 09/19/2023 5:12 PM GLASS CUT OFF SUPERVISOR 250 mg calcium chloride injection intravenous, As needed, Starting on Sun09/19/23 at 1220, Anesthesia Intra-op Given 09/19/2023 4:44 PM GLASS CUT OFF SUPERVISOR 500 mg Given 09/19/2023 4:42 PM GLASS CUT OFF SUPERVISOR 500 mg Given 09/19/2023 3:54 PM GLASS CUT OFF SUPERVISOR 1,000 mg ceFAZolin injection 2,000 mg (ANCEF) [...] Indications: Prophylaxis, surgical Given 09/19/2023 3:52 PM GLASS CUT OFF SUPERVISOR 2 g Given 09/19/2023 11:47 AM GLASS CUT OFF SUPERVISOR 2 g Given 09/19/2023 8:47 AM GLASS CUT OFF SUPERVISOR 2 g clevidipine 0.5 mg/mL bolus (CLEVIPREX) intravenous, As needed, Starting on Sun09/19/23 at 0931, Anesthesia Intra-op Given 09/19/2023 3:44 PM GLASS CUT OFF SUPERVISOR 0.125 m g Given 09/19/2023 9:31 AM GLASS CUT OFF SUPERVISOR 0.25 mg clevidipine 0.5 mg/mL infusion (CLEVIPREX) [...] Per Provider New Bag 09/19/2023 4:16 PM GLASS CUT OFF SUPERVISOR 2 mg/hr 4 mL/hr [place] Cardioplegia solution: potassium chloride 26 mEq, magnesium sulfate 2 g, lidocaine (PF) 130 mg, mannitol 3.25 g, sodium bicarbonate 13 mEq in electrolyte-A 1,000 mL (20% mannitol used) perfusion, Once in surgery, OR use only, Starting on Sun09/19/23 at 0710, For 1 dose, Intra-Op New Bag 09/19/2023 7:16 AM GLASS CUT OFF SUPERVISOR 2,000 mL dexAMETHasone injection (DECADRON) intravenous, As needed, Starting on Sun09/19/23 at 0848, Anesthesia Intra-op Given 09/19/2023 8:48 AM GLASS CUT OFF SUPERVISOR 4 mg electrolyte-A solution (PLASMA-LYTE A) intravenous, Continuous Infusion: Per Instructions PRN, Starting on Sun09/19/23 at 0732, Anesthesia Intra-op New Bag 09/19/2023 2:36 PM GLASS CUT OFF SUPERVISOR New Bag 09/19/2023 8:17 AM GLASS CUT OFF SUPERVISOR New Bag 09/19/2023 7:32 AM GLASS CUT OFF SUPERVISOR electrolyte-A solution (PLASMA-LYTE A) intravenous, Continuous Infusion: Per Instructions PRN, Starting on Sun09/19/23 at 0806, Anesthesia Intra-op New Bag 09/19/2023 3:36 PM GLASS CUT OFF SUPERVISOR New Bag 09/19/2023 8:06 AM GLASS CUT OFF SUPERVISOR ePHEDrine (PF) injection intravenous, As needed, Starting on Sun09/19/23 at 0845, Anesthesia Intra-op Given 09/19/2023 1:03 PM GLASS CUT OFF SUPERVISOR 5 mg Given 09/19/2023 12:58 PM GLASS CUT OFF SUPERVISOR 10 mg Given 09/19/2023 8:45 AM GLASS CUT OFF SUPERVISOR 5 mg EPINEPHrine 16 mcg/mL in NaCl 0.9% mL 250 mL infusion (ADRENALIN) 0-0.3 mcg/kg/min ? 87.2 kg (0-98.1 mL/hr), intravenous, Continuous, Starting on Sun09/19/23 at 0645, In OR Protect from light and avoid extravasation, Patient Type: Cardiovascular Surgery, Initiate at: Other, Rate: Per Provider, Titrate at: Other, Titrate: Per Provider, Goal: Other, Goal: Per Provider Restarted 09/19/2023 4:45 PM GLASS CUT OFF SUPERVISOR 0.02 mcg/kg/min 6.54 mL/hr Rate/Dose Change 09/19/2023 12:51 PM GLASS CUT OFF SUPERVISOR 0.01 mcg/kg/min 3 .27 mL/hr Rate/Dose Change 09/19/2023 12:48 PM GLASS CUT OFF SUPERVISOR 0.02 mcg/kg/min 6 .54 mL/hr fentaNYL injection (SUBLIMAZE) intravenous, As needed, Starting on Sun09/19/23 at 0740, Anesthesia Intra-op Given 09/19/2023 7:54 AM GLASS CUT OFF SUPERVISOR 150 mcg Given 09/19/2023 7:46 AM GLASS CUT OFF SUPERVISOR 50 mcg Given 09/19/2023 7:40 AM GLASS CUT OFF SUPERVISOR 50 mcg granisetron (PF) injection (KYTRIL) intravenous, As needed, Starting on Sun09/19/23 at 1347, Anesthesia Intra-op Given 09/19/2023 1:47 PM GLASS CUT OFF SUPERVISOR 1 mg heparin (porcine) 1,000 unit/mL injection intravenous, As needed, Starting on Sun09/19/23 at 0917, Anesthesia Intra-op Given 09/19/2023 9:17 AM GLASS CUT OFF SUPERVISOR 34,000 Units heparin (porcine) 1,000 unit/mL injection intravenous, As needed, Starting on Sun09/19/23 at 1135, Anesthesia Intra-op Given 09/19/2023 11:35 AM GLASS CUT OFF SUPERVISOR 5,000 Units insulin regular 1 Unit/mL in [...] Factor: 0.03 Rate/Dose Change 09/20/2023 1:18 AM GLASS CUT OFF SUPERVISOR 0 Units/hr 0 mL/hr Rate/Dose Change 09/20/2023 12:02 AM GLASS CUT OFF SUPERVISOR 0 Units/hr 0 mL/h r Rate/Dose Verify 09/20/2023 12:01 AM GLASS CUT OFF SUPERVISOR 3.5 Units/hr 3.5 mL/hr ketamine injection (KETALAR) intravenous, As needed, Starting on Sun09/19/23 at 0741, Anesthesia Intra-op Given 09/19/2023 7:48 AM GLASS CUT OFF SUPERVISOR 30 mg Given 09/19/2023 7:47 AM GLASS CUT OFF SUPERVISOR 40 mg Given 09/19/2023 7:41 AM GLASS CUT OFF SUPERVISOR 10 mg lidocaine (PF) (cardiac) injection intravenous, As needed, Starting on Sun09/19/23 at 0746, Anesthesia Intra-op Given 09/19/2023 7:46 AM GLASS CUT OFF SUPERVISOR 100 mg methadone injection 26.2 mg (DOLOPHINE) 26.2 mg (rounded from 26.16 mg = 0.3 mg/kg ? 87.2 kg), intravenous, Once, On Sun09/19/23 at 0645, For 1 dose, Intra-Op, In OR, Restriction Criteria (Pharmacy will review and approve if criteria met): Prescribed by Pain Service Given 09/19/2023 8:59 AM GLASS CUT OFF SUPERVISOR 5 mg Given 09/19/2023 8:56 AM GLASS CUT OFF SUPERVISOR 5 mg Given 09/19/2023 8:54 AM GLASS CUT OFF SUPERVISOR 5 mg midazolam (PF) injection (VERSED) intravenous, As needed, Starting on Sun09/19/23 at 0738, Anesthesia Intra-op Given 09/19/2023 7:38 AM GLASS CUT OFF SUPERVISOR 2 mg mupirocin 2 % nasal ointment (BACTROBAN) nasal, As needed, Starting on Sun09/19/23 at 0821, Anesthesia Intra-op Given 09/19/2023 8:21 AM GLASS CUT OFF SUPERVISOR 0.5 g norepinephrine 16 mcg/mL in D5W 250 mL infusion 0-0.3 mcg/kg/min ? 87.2 kg (0-98.1 mL/hr), intravenous, Continuous, Starting on Sun09/19/23 at 0645, In OR Protect from light and avoid extravasation, Patient Type: Cardiovascular Surgery, Initiate at: Other, Rate: Per Provider, Titrate at: Other, Titrate: Per Provider, Goal: Other, Goal: Per Provider Rate/Dose Change 09/19/2023 4:51 PM GLASS CUT OFF SUPERVISOR 0.02 mcg/kg/min 6.54 mL/hr Restarted 09/19/2023 4:46 PM GLASS CUT OFF SUPERVISOR 0.01 mcg/kg/min 3.27 mL/ hr Rate/Dose Change 09/19/2023 3:27 PM GLASS CUT OFF SUPERVISOR 0.01 mcg/kg/min 3. 27 mL/hr phenylephrine 80 mcg/mL in NaCl 0.9% 250 mL infusion 0-1 mcg/kg/min ? 87.2 kg (0-65.4 mL/hr), intravenous, Continuous, Starting on Sun09/19/23 at 0645, Intra-Op, In OR 20 mg in 250 mL, Patient Type: Standard, initiate at: Other, Rate: Per Provider, Titrate at: Other, Titrate: Per Provider, Goal: Other, Goal: Per Provider Rate/Dose Change 09/19/2023 12:21 PM GLASS CUT OFF SUPERVISOR 0.3 mcg/kg/min 19.62 mL/hr Rate/Dose Change 09/19/2023 12:12 PM GLASS CUT OFF SUPERVISOR 0.6 mcg/kg/min 39 .24 mL/hr Rate/Dose Change 09/19/2023 12:00 PM GLASS CUT OFF SUPERVISOR 0.8 mcg/kg/min 52 .32 mL/hr phenylephrine injection intravenous, As needed, Starting on Sun09/19/23 at 0944, Anesthesia Intra-op Given 09/19/2023 12:14 PM GLASS CUT OFF SUPERVISOR 100 mc g Given 09/19/2023 10:46 AM GLASS CUT OFF SUPERVISOR 200 mcg Given 09/19/2023 10:31 AM GLASS CUT OFF SUPERVISOR 100 mcg phenylephrine injection intravenous, As needed, Starting on Sun09/19/23 at 1223, Anesthesia Intra-op Given 09/19/2023 3:10 PM GLASS CUT OFF SUPERVISOR 100 mcg Given 09/19/2023 1:50 PM GLASS CUT OFF SUPERVISOR 100 mcg Given 09/19/2023 1:27 PM GLASS CUT OFF SUPERVISOR 100 mcg propofol 10 mg/mL infusion (DIPRIVAN) intravenous, Continuous Infusion: Per Instructions PRN, Starting on Sun09/19/23 at 1243, Anesthesia Intra-op Restarted 09/19/2023 3:45 PM GLASS CUT OFF SUPERVISOR 40 mcg/kg/min 20.592 mL/hr Rate/Dose Change 09/19/2023 2:32 PM GLASS CUT OFF SUPERVISOR 40 mcg/kg/min 20.5 92 mL/hr New Bag 09/19/2023 1:43 PM GLASS CUT OFF SUPERVISOR 25 mcg/kg/min 12.87 mL/h r protamine injection intravenous, As needed, Starting on Sun09/19/23 at 1238, Anesthesia Intra-op Given 09/19/2023 12:38 PM GLASS CUT OFF SUPERVISOR 340 mg prothrombin complex conc (human) four factor infusion 1,577 Units (KCENTRA) 1,577 Units, intravenous, at 504 mL/hr, Once, On Sun09/19/23 at 1500, For 1 dose, Intra-Op, Restriction Criteria (Pharmacy will review and approve if criteria met): Urgent bleeding reversal of oral anticoagulation, excluding dabigatran New Bag 09/19/2023 3:54 PM GLASS CUT OFF SUPERVISOR 504 mL/hr rocuronium injection (ZEMURON) intravenous, As needed, Starting on Sun09/19/23 at 0748, Anesthesia Intra-op Given 09/19/2023 3:23 PM GLASS CUT OFF SUPERVISOR 30 mg Given 09/19/2023 7:48 AM GLASS CUT OFF SUPERVISOR 100 mg sugammadex injection (BRIDION) intravenous, As needed, Starting on Sun09/19/23 at 1712, Anesthesia Intra-op Given 09/19/2023 5:12 PM GLASS CUT OFF SUPERVISOR 200 mg tranexamic acid 8 mg/mL in NaCl 0.9% 250 mL infusion (CYKLOKAPRON) 1.5 mg/kg/hr ? 87.2 kg (16.35 mL/hr, rounded to 16.4 mL/hr), intravenous, Continuous, Starting on Sun09/19/23 at 0645 Restarted 09/19/2023 5:19 PM GLASS CUT OFF SUPERVISOR 2 mg/kg/hr 21.8 mL/hr Rate/Dose Change 09/19/2023 5:16 PM GLASS CUT OFF SUPERVISOR 2 mg/kg/hr 21.8 mL /hr New Bag 09/19/2023 9:26 AM GLASS CUT OFF SUPERVISOR 1.5 mg/kg/hr 16.35 mL/hr tranexamic acid 850 mg in NaCl 0.9% IVPB 850 mg (rounded from 872 mg = 10 mg/kg ? 87.2 kg), intravenous, at 176 mL/hr, Administer over 20 Minutes, Once, On Sun09/19/23 at 0645, For 1 dose New Bag 09/19/2023 9:25 AM GLASS CUT OFF SUPERVISOR 850 mg tranexamic acid pump prime 40 mg (CYKLOKAPRON) 40 mg, miscellaneous, Once, On Sun09/19/23 at 0645, For 1 dose, Intra-Op, Pump Prime (Syringe); pharmacy sent to OR Given 09/19/2023 9:44 AM GLASS CUT OFF SUPERVISOR 40 mg Transfuse autologous RBC (Cell Salvage) : Routine New Bag 09/19/2023 11:33 AM GLASS CUT OFF SUPERVISOR Transfuse autologous RBC (Cell Salvage) : Routine New Bag 09/19/2023 1:28 PM GLASS CUT OFF SUPERVISOR Transfuse Fresh Frozen Plasma : Routine New Bag 09/19/2023 1:24 PM GLASS CUT OFF SUPERVISOR Transfuse Platelets : Routine New Bag 09/19/2023 1:09 PM GLASS CUT OFF SUPERVISOR Transfuse Platelets : Routine New Bag 09/19/2023 2:15 PM GLASS CUT OFF SUPERVISOR Transfuse Platelets : Routine New Bag 09/19/2023 4:58 PM GLASS CUT OFF SUPERVISOR Transfuse Pooled Cryoprecipitate: Routine New Bag 09/19/2023 3:51 PM GLASS CUT OFF SUPERVISOR Transfuse Pooled Cryoprecipitate: Routine New Bag 09/19/2023 3:53 PM GLASS CUT OFF SUPERVISOR Transfuse Red Blood Cells : Routine New Bag 09/19/2023 10:13 AM GLASS CUT OFF SUPERVISOR Transfuse Red Blood Cells : Routine New Bag 09/19/2023 2:00 PM GLASS CUT OFF SUPERVISOR Transfuse Red Blood Cells : Routine New Bag 09/19/2023 3:50 PM GLASS CUT OFF SUPERVISOR Transfuse Red Blood Cells : Routine New Bag 09/19/2023 3:23 PM GLASS CUT OFF SUPERVISOR documented in this encounter Additional Health Concerns Assessment Noted Time PHQ-9 Depression Total Score: 1 09/10/20 2:06 PM CDT documented as of this encounter Care Teams Shaper And Presser Relationship Specialty Start Date End Date Elsewhere, Pcp PCP - General Internal Medicine 08/19/23 09/27/23 documented as of this encounter
--- OUTSIDE RECORDS SUMMARY | 2023-12-30 07:29 | XMS_ITS | Encounter Summary ---
Author Name Unknown Organization [facility] Address [address] [place] [id number] Care Team Providers Care Cuff Setter Lockstitch Name Role Phone Elsewhere, Pcp Primary Care Provider Unavailabl e Reason for Referral * MRI/CAT/PET Scan (Routine) - Closed Specialty Diagnoses / Procedures Referred By Sebas gimenez Referred To Contact Radiology Diagnoses Stenosis Aortic Valve Acquired Procedures CT Chest Angiogram with IV Contrast Billy Segal APRN, C.N.P., D.N.P. [address] [place] [phone] [facility] Referral ID Status Reason Start Date Expiration Date Visits Re quested Visits Authorized [id number] Closed 09/05/2023 10/05/2023 1 1 * Outpatient (Routine) - Authorized Specialty Diagnoses / Procedures Referred By Sebas t Referred To Contact Hematology Diagnoses Anemia Iron Deficiency Billy Segal APRN, C.N.PJarrett, D.N.P. [address] [place] [phone] [facility] Referral ID Status Reason Start Date Expiration Date V isits Requested Visits Authorized [id number] Authorized 08/22/2023 08/21/2024 1 1 * Outpatient (Routine) - Closed Specialty Diagnoses / Procedures Referred By Sebas gimenez Referred To Contact Cardiovascular Surgery Diagnoses Stenosis Aortic Valve Acquired Billy Segal APRN, C.N.PJarrett, D.N.P. [address] [place] [phone] [facility] Referral ID Status Reason Start Date Expiration Date Visits Re quested Visits Authorized [id number] Closed 08/22/2023 08/21/2024 1 1 Reason for Visit * Reason Onset Date Comments Pre-visit Testing Orders 08/22/2023 Encounter Details Date Type Department Care Team (Latest Contact Info) Description 08/22/2023 Clinical Communication Department of Cardiovascular Medicine in [place], [place] [address] [place] [phone] Billy Segal APRN, C.N.PJarrett, D.N.P. [address] [place] [phone] Pre-visit Testing Orders Social History Tobacco Use [...] Contact Info) Description 01/04/2024 10:30 AM HEAD REFRIGERATING ENGINEER Comprehensive Visit Division of Hematology in [place], [place] [address] [place] [phone] Brandy Real M.D., M.B.A. [address] [place] [phone] Scheduled Referrals Name Type Priority Associated Diagnoses [...] documented as of this encounter Care Teams Cuff Setter Lockstitch Relationship Specialty Start Date End Date Elsewhere, Pcp PCP - General Internal Medicine 08/19/23 09/27/23 documented as of this encounter
--- OUTSIDE RECORDS SUMMARY | 2023-12-30 07:29 | XMS_ITS | Encounter Summary ---
Author Name Unknown Organization [facility] Address [address] [place] [address] Care Team Providers Care Middleware Engineer Name Role Phone Elsewhere, Pcp Primary Care Provider Unavailabl e Encounter Details Date Type Department Care Team ([facility] st Contact Info) Description 08/22/2023 Orders Only Department of Cardiovascular Medicine in [place], [place] [address] [place] [phone] Billy Segal APRN, C.N.P., D.N.P. [address] [place] [phone] Social History Tobacco Use Types Packs/Day Years [...] st Contact Info) Description 01/04/2024 10:30 AM SENIOR FIRMWARE ENGINEER Comprehensive Visit Division of Hematology in [place], [place] [address] [place] [phone] Brandy Real M.D., M.B.A. [address] [place] [phone] documented as of this encounter Visit Diagnoses Not on filedocumented in this encounter Additional Health Concerns Assessment Noted Time PHQ-9 Depression Total Score: 0 08/20/20 12:00 PM CDT documented as of this encounter Care Teams Middleware Engineer Relationship Specialty Start Date End Date Elsewhere, Pcp PCP - General Internal Medicine 08/19/23 09/27/23 documented as of this encounter
--- OUTSIDE RECORDS SUMMARY | 2023-12-30 07:29 | XMS_ITS | Encounter Summary ---
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 Name Role Phone Elsewhere, Pcp Primary Care Provider Unavailabl e Reason for Visit * Reason Comments Chest Pain * Auth/Cert (Routine) Specialty Diagnoses / Procedures Referred By Contac t Referred To Contact Diagnoses Stenosis Mitral And Aortic Stenosis Pain Chest Procedures ER Referral ID Status Reason Start Date Expiration Date Visits Re quested Visits Authorized [id number] 1 1 Encounter Details Date Type Department Care Team (Late st Contact Info) Description 08/21/2023 2:35 PM CDT - 08/21/2023 3:50 PM CDT Surgery Division of Cardiovascular Diseases in [place], [place] [address] [place] [address] Ezequiel Jack M.D. [address] [place] [phone] CORONARY ANGIOGRAPHY Social History Tobacco Use Types [...] - 1 event recorded on loop recorder ([id number]), lasting 8 minutes on 11/25/20 #7 Hypertension [...] 4:00 PM Sarah Miller M.D., M.P.H.; 01 [facility] Cardiovascular Surgery 09/19/2023 4:30 PM 01 [facility]; [id number] Cardiovascular Surgery For appointment details refer to your Patient Appointment Guide. HOSPITAL COURSE Admission Weight: 86.5 kg Dismissal Weight: 82.6 kg BMI: Body mass index is 27.6 kg/m??. Mr. Harris is a 73-year-old gentleman who presented to [facility] emergency department with shortness of breath [...] symptoms. This prompted him to present to [facility] emergency department. Of note, he was seen by his local provider on 08/08/23, his Lisinopril dose was decreased to 2.5 mg daily at that time due to hypotension and was referred to [facility] for an echocardiogram to monitor his [...] dose Aspirin. He was admitted to the [facility] Cardiology 4 service for further monitoring and [...] of Atrial Fibrillation during the period of 8351-8258, on 11/25/20 that lasted for 8 minutes. [...] Status Erythropoietin (EPO) In process Pernicious Anemia Mobile In process DISCHARGE DISPOSITION: Home or Self [...] through Care Everywhere. * Pantoprazole (By mouth) (Korean) * Acetaminophen (By mouth) (Korean) documented in this encounter Medications at Time [...] 81 mg this hospitalization S/p loop recorder, [id number]. Per chart showed 1-4 events of AF. [...] - 1 event recorded on loop recorder ([id number]), lasting 8 minutes on 11/25/20 #6 Hypertension #7 Hyperlipidemia #8 Type 2 diabetes mellitus, most recent A1C 6.3 (05/01/23) #9 BPH #10 Iron deficiency anemia #11 Hypomagnesemia - repleted #12 GERD Mr. Harris is a 73 y.o. male who was admitted to [facility] Cardiology 4 service for shortness of breathand [...] Fibrillation lasting 8 minutes on 11/25/20 from 2755-1461. He was on high dose Aspirin. Given [...] Home - self care Billy Segal APRN, Cata.N.PJarrtet, D.N.P. 08/21/23 RST CARD 4 I personally [...] - 1 event recorded on loop recorder ([id number]), lasting 8 minutes on 11/25/20 #5 Hypertension #6 Hyperlipidemia #7 Type 2 diabetes mellitus, most recent A1C 6.3 (05/01/23) #8 BPH #9 Iron deficiency anemia #10 Hypomagnesemia Mr. Harris is a 73 y.o. male who was admitted to [facility] Cardiology 4 service for shortness of breathand [...] hour. This prompted him to present to [facility] emergency department. He stated that the pain was not radiating and did not have other associated symptoms. Of note, he was seen by his local provider on 08/08/23, his Lisinopril dose was decreased to 2.5 mg daily due to hypotension and was referred to [facility] for an echocardiogram to monitor his [...] dose Aspirin. He was admitted to the [facility] Cardiology 4 service for further monitoring and [...] lasting for 8 minutes on 11/25/20 from 9629-3905. He remains on high dose Aspirin. PLAN: [...] does not have a prior history of OR but did have a stroke in 2019. [...] On full dose aspirin S/p loop recorder, [id number]. Per chart showed 1-4 events of AF. [...] 08/19/2023 8:26 PM CDT SUBJECTIVE REFERRAL SOURCE [facility] Emergency Room, [facility], [place], [place] CHIEF COMPLAINT/REASON FOR VISIT Episodes of chest pain and dyspnea HISTORY OF PRESENT ILLNESS Mr. Harris is a 73-year-old gentleman with comorbidities including but not limited to severe aortic valve stenosis (mean gradient 44 mm Hg, JONAA 0.90 cm^2, per TTE 08/17/2023), hypertension, chronickidney [...] trouble viewing the loop recorder reports in [facility] everywhere. Patient presented to the [...] area of 1.43 cm^2 (report available in [facility] everywhere). LVEF was approximately 70%. [...] per review of labo ratory results in [facility] Everywhere. Chest x-ray revealed no [...] area of 1.43 cm^2 (report available in [employer] [facility] everywhere). As of August 17, [...] reviewing the complete loop recorder reports from [facility] everywhere-we will continue to follow [...] is a 73 y.o. male admitted to [place] [address] for evaluation and management of chest pain and dyspnea in the setting of known severe aortic stenosis. [facility] was consulted for consideration for surgical aortic valve replacement. Patient will need his coronary arteries evaluated for CAD. This consult will be staffed by Dr. Miller. Please call the [facility] support team member pager [phone]) with any questions. documented in this encounter Nursing Notes * Kleber Sharma R.N. - 08/22/2023 10:53 AM CDT Shift Goals: Clinical Goals for the Shift: Patient will remain NPO overnight. Identify possible barriers to meeting goals/advancing plan of care: None End of Shift Summary: Patient was discharge to [facility] with his . All [...] Echo was done here at [facility] last Sunday but he has nofollow-up appointments. They recently moved to [place]. They have been getting care in [place]. We have no medical records for comparison. [...] Aortic Stenosis Mare Noble M.D. Resident 08/19/23 [id number] * Rowena Oro, RJarrettN. - 08/19/2023 3:22 [...] is a 73-year-old gentleman who presented to [facility] emergency department with shortness of breath with [...] symptoms. This prompted him to present to [facility] emergency department. Of note, he was seen by his local provider on 08/08/23, his Lisinopril dose was decreased to 2.5 mg daily at that time due to hypotension and was referred to [facility] for an echocardiogram to monitor his [...] dose Aspirin. He was admitted to the [facility] Cardiology 4 service for further monitoring and [...] of Atrial Fibrillation during the period of 4530-5258, on 11/25/20 that lasted for 8 minutes. [...] st Contact Info) Description 01/04/2024 10:30 AM PRINCIPAL TECHNICAL ARCHITECT Comprehensive Visit Division of Hematology in [place], [place] [address] [place] [address] Brandy Real M.D., M.B.A. [address] [place] [phone] documented as of this encounter Procedures Procedure [...] * Glucose, POCT (08/22/2023 6:47 AM CDT) Glucose, POCT, B 127 70 - 140 mg/dL 08/22/2023 6:50 AM CDT PCLX Site Capillary 08/22/2023 6:50 AM CDT PCLX Blood 08/22/2023 6:47 AM CDT 08/22/2023 6:50 AM CDT Unknown Provider LAB POCT ORDERABLES- MANUAL POC [facility] [address] [place] [address], [facility] PCLX [facility] POC [address] [place] [address] * Gastrin (08/22/2023 5:14 AM CDT) Pathologist [facility] Emergency Department Gastrin, S 21 pg/mL 08/22/2023 6:26 PM CDT [facility] Comment: Not consistent with pernicious anemia. ----REFERENCE VALUE---- <100 Reference ranges valid for >= 8 hour fast. Blood 08/22/2023 5:14 AM CDT 08/22/2023 3:36 PM CDT Radha Richards APRNNGrant., D.N.P. LAB BLOOD NON ADD-ON [facility] [address] [place], [place] [id number] [place] [address] [place] [address] * Intrinsic Factor Blocking Antibody, Serum (08/22/2023 5:14 AM CDT) Pathologist [facility] Emergency Department Intrinsic Factor Blocking Ab, S Negative Negative 08/22/2023 1:13 PM CDT [facility] Comment:Gastrin test was per formed. Comment SEE COMMENT 08/22/2023 1:13 PM CDT [facility] Comment: Intrinsic Factor Blocking Antibody (IFBA) antibodies are absent in approximately 50% of individuals with pernicious anemia (PA). The absence of elevated IFBA antibodies does not rule out the presence of PA; further studies such as gastrin testing may be indicated. Blood 08/22/2023 5:14 AM CDT 08/22/2023 10:03 AM CDT Billy Segal APRN, C.N.P., Emilia.N.P. LAB BLOOD NON ADD-ON [facility] [address] [place] [address] [facility] [address] [place] [address] * (ABNORMAL) Comprehensive Metabolic Panel (08/22/2023 5:14 AM CDT) [facility] Potassium, S 4.7 3.6 - 5.2 [...] 5:14 AM CDT 08/22/2023 6:08 AM CDT Cata Richards APRN.N.P., D.N.P. LAB BLOOD ADD-ON Performing Organization Address City/[facility]/ZIP Co de Phone Number [facility] [address] [place] [address] * Ferritin (08/22/2023 5:14 AM CDT) Ferritin, S 243 31 - 409 mcg/L 08/22/2023 6:31 AM CDT DTL Blood (Blood, Venous) 08/22/2023 5:14 AM CDT 08/22/2023 6:06 AM CDT Cata Richards APRN.N.P., D.N.P. LAB BLOOD ADD-ON [facility] [address] [place] [address], [facility] [address] * (ABNORMAL) Iron and Total Iron-Binding Capacity (08/22/2023 5:14 AM CDT) Iron 72 50 - 150 mcg/dL 08/22/2023 6:31 AM CDT DTL Total Iron Binding Capacity 203(L) 250 - 400 mcg/dL 08/22/2023 6:31 AM CDT DTL Percent Saturation 35 14 - 50 % 08/22/2023 6:31 AM CDT DTL Blood (Blood, Venous) 08/22/2023 5:14 AM CDT 08/22/2023 6:06 AM CDT Cata Richards APRN.N.P., D.N.P. LAB BLOOD ADD-ON Performing Organization Address City/[facility]/ZIP Co de Phone Number [facility] [address] [place] [address], [facility] [address] [place] [address] * (ABNORMAL) Pernicious Anemia Mobile (08/22/2023 5:14 AM CDT) Vitamin B12 Assay, S 123(L) 180 - 914 ng/L 08/22/2023 12:19 PM CDT [facility] Comment: Low B12; Intrinsic Factor Blocking Antibody test was performed. Blood (Blood, Venous) 08/22/2023 5:14 AM CDT 08/22/2023 10:03 AM CDT Billy Segal APRN, Cata.N.P., D.N.P. LAB BLOOD NON ADD-ON Performing Organization Address City/[facility]/ZIP Co de Phone Number [facility] [address] [place] [address] [facility] [address] [place] [address] * (ABNORMAL) Magnesium (08/22/2023 5:14 AM CDT) Magnesium, S 2.4(H) 1.7 - 2.3 mg/dL 08/22/2023 6:31 AM CDT DTL Blood (Blood, Venous) 08/22/2023 5:14 AM CDT 08/22/2023 6:06 AM CDT Billy Yingchuk EVP STRATEGY, C.N.P., D.N.P. LAB BLOOD ADD-ON [facility] [address] [place] [address], [facility] DTL [facility] [address] [place] [address] * (ABNORMAL) CBC with Differential, Blood (08/22/2023 [...] 5:14 AM CDT 08/22/2023 5:50 AM CDT Radha Richards APRNNKory, D.N.P. LAB BLOOD ADD-ON [facility] [address] [place] [address], [facility] [address] [place], [place] [address] [place] [address] [address] [place] [address] * (ABNORMAL) Hemoglobin A1c (08/22/2023 5:14 AM CDT) Hemoglobin A1c, B 6.2(H) 4.0 - 5.6 % 08/22/2023 7:37 AM CDT [facility] Comment: Hemoglobin A1c values of 5.7-6.4 percent indicate an increased risk for developing diabetes mellitus. In diabetic patients, HbA1c goals should be discussed with healthcare provider. Blood (Blood, Venous) 08/22/2023 5:14 AM CDT 08/22/2023 5:49 AM CDT Radha Richards APRNNJarrettPJarrett, D.N.P. LAB BLOOD ADD-ON Performing Organization Address City/State/[facility] Co de Phone Number [facility] [address] [place] [address], [facility] [address] [place] [address] * Erythropoietin (EPO) (08/22/2023 5:08 AM CDT) Erythropoietin (EPO), S 7.5 2.6 - 18.5 mIU/mL 08/22/2023 12:01 PM CDT [facility] Blood (Blood, Venous) 08/22/2023 5:08 AM CDT 08/22/2023 10:39 AM CDT Radha Richards APRNN.PJarrett, D.N.P. LAB BLOOD ADD-ON [facility] [address] [place] [address] [facility] [address] [place] [address] * (ABNORMAL) Glucose, POCT (08/21/2023 9:19 PM CDT) Glucose, POCT, B 154(H) 70 - 140 mg/dL 08/21/2023 9:31 PM CDT PCLX Site Capillary 08/21/2023 9:31 PM CDT PCLX Last Intake 3-4 hours 08/21/2023 9:31 PM CDT PCLX Blood 08/21/2023 9:19 PM CDT 08/21/2023 9:31 PM CDT Unknown Provider LAB POCT ORDERABLES- MANUAL Performing Organization Address [facility]/ZIP Co de Phone Number POC [facility] [address] [place] [address], [place] PCLX [facility] POC [address] [place] [address] * (ABNORMAL) Glucose, POCT (08/21/2023 5:19 PM CDT) Glucose, POCT, B 177(H) 70 - 140 mg/dL 08/21/2023 5:21 PM CDT PCLX Site Capillary 08/21/2023 5:21 PM CDT PCLX Last Intake 3-4 hours 08/21/2023 5:21 PM CDT PCLX Blood 08/21/2023 5:19 PM CDT 08/21/2023 5:21 PM CDT Unknown Provider LAB POCT ORDERABLES- MANUAL Performing Organization Address City/[facility]/ZIP Co de Phone Number POC [facility] [address] [place] [address], [place] PCLX [facility] POC [address] [place] [address] * CORONARY ANGIOGRAPHY (08/21/2023 3:16 PM CDT) [...] Unknown Provider LAB POCT ORDERABLES- MANUAL POC [facility] [address] [place] [address], [facility] PCLX [facility] POC [address] [place] [address] * Glucose, POCT (08/21/2023 6:56 AM CDT) Glucose, POCT, B 127 70 - 140 mg/dL 08/21/2023 7:06 AM CDT PCLX Site Capillary 08/21/2023 7:06 AM CDT PCLX Blood 08/21/2023 6:56 AM CDT 08/21/2023 7:06 AM CDT Unknown Provider LAB POCT ORDERABLES- MANUAL POC [facility] [address] [place] [address], [place] PCLX [facility] POC [address] [place] [address] * Lipid Panel (08/21/2023 4:52 AM CDT) [...] 08/21/2023 5:49 AM CDT Billy Segal APRN C.N.PJarrett, D.N.P. LAB BLOOD ADD-ON [facility] [address] [place] [address], [facility] [address] [place] [address] * (ABNORMAL) Basic Metabolic Panel (08/21/2023 4:52 [...] 4:52 AM CDT 08/21/2023 5:49 AM CDT Radha Richards APRNN.PJarrett, D.N.P. LAB BLOOD ADD-ON Performing Organization Address City/[facility] Co de Phone Number [facility] [address] [place] [address], [facility] [address] [place] [address] * (ABNORMAL) Cystatin C with Estimated GFR [...] D.N.P. LAB BLOOD ADD-ON Performing Organization Address City/[facility]/ZIP Co de Phone Number [facility] [address] [place] [address], [facility] [address] [place] [address] * Glucose, POCT (08/20/2023 9:17 PM CDT) Glucose, POCT, B 130 70 - 140 mg/dL 08/20/2023 9:19 PM CDT PCLX Site Capillary 08/20/2023 9:19 PM CDT PCLX Last Intake 3-4 hours 08/20/2023 9:19 PM CDT PCLX Blood 08/20/2023 9:17 PM CDT 08/20/2023 9:19 PM CDT Unknown Provider LAB POCT ORDERABLES- MANUAL POC [facility] [address] [place] [address], [facility] PCLX [facility] POC [address] [place] [address] * DX [employer] Teeth (08/20/2023 6:23 PM [...] No definite periapicallucencies. No acute fractures. Billy Segla APRN, C.N.P., D.N.P. IMG DIAGNOSTIC IMAGING PROCEDURES * Glucose, POCT (08/20/2023 4:53 PM CDT) Glucose, POCT, B 105 70 - 140 mg/dL 08/20/2023 4:55 PM CDT PCLX Site Capillary 08/20/2023 4:55 PM CDT PCLX Last Intake 3-4 hours 08/20/2023 4:55 PM CDT PCLX Blood 08/20/2023 4:53 PM CDT 08/20/2023 4:55 PM CDT Unknown Provider LAB POCT ORDERABLES- MANUAL Performing Organization Address City/[facility]/ZIP Co de Phone Number POC [facility] [address] [place] [address], [facility] PCLX [facility] [address] [place] [address] * Dipstick, Urine (08/20/2023 3:26 PM CDT) [...] 3:43 PM CDT Billy Segal APRN, C.N.P., D.N.P. LAB URINE ORDERABLES [facility] [place] [address] [place] [address], [facility] [address] [place] [address] * pH, Urine (08/20/2023 3:26 PM CDT) pH, U 6.9 4.5 - 8.0 08/20/2023 4:2 4 PM CDT DTL Urine 08/20/2023 3:26 PM CDT 08/20/2023 3:43 PM CDT Cata Richards APRN.N.P., D.N.P. LAB URINE ORDERABLES Performing Organization Address City/[facility]/ZIP Co de Phone Number [facility] [address] [place] [address] * Osmolality, Urine (08/20/2023 3:26 PM CDT) Osmolality, U 239 150 - 1150 mOsm/kg 08/20/2023 4:24 PM CDT DT Urine 08/20/2023 3:26 PM CDT 08/20/2023 3:43 PM CDT Cata Richards APRN.N.P., D.N.P. LAB URINE ORDERABLES Performing Organization Address City/[facility]/ZIP Co de Phone Number [facility] [address] [place], [place] [address] [place] [address] [address] [place] [address] * Microscopic Automated (08/20/2023 3:26 PM CDT) Microscopy Normal 08/20/2023 3:5 3 PM CDT DT Urine 08/20/2023 3:26 PM CDT 08/20/2023 3:43 PM CDT Cata Richards APRN.N.P., D.N.P. LAB URINE ORDERABLES [facility] [address] [place] [address], [facility] [address] [place] [address] * Urinalysis with Microscopic: Urine, Midstream (08/20/2023 [...] 3:43 PM CDT Billy Segal APRN, C.N.P., D.N.P. LAB URINE ORDERABLES Performing Organization Address City/[facility]/ZIP Co de Phone Number [facility] [address] [place] [address], [facility] DTL [facility] [address] [place] [address] * (ABNORMAL) Glucose, POCT (08/20/2023 11:55 AM CDT) [facility] Glucose, POCT, B 281(H) 70 - 140 mg/dL 08/20/2023 12:06 PM CDT PCLX Blood 08/20/2023 11:5 5 AM CDT 08/20/2023 12:06 PM CDT Unknown Provider LAB POCT ORDERABLES- MANUAL POC [facility] [address] [place] [address], [facility] PCLX [facility] [address] [place] [address] * Magnesium (08/20/2023 7:01 AM CDT) Magnesium, S 1.9 1.7 - 2.3 mg/dL 08/20/2023 8:09 AM CDT DTL Blood (Blood, Venous) 08/20/2023 7:01 AM CDT 08/20/2023 7:48 AM CDT Palomo Flores P.A.-C. LAB BLOOD ADD -ON [facility] [address] [place] [address], [facility] [address] [place] [address] * (ABNORMAL) Basic Metabolic Panel (08/20/2023 7:01 [...] LAB BLOOD ADD -ON Performing Organization Address City/[facility] Co de Phone Number [facility] [address] [place] [address], [facility] [address] [place] [address] * (ABNORMAL) Cystatin C with Estimated GFR (08/20/2023 6:59 AM CDT) [facility] eGFR by Cystatin C 33(L) >60 mL/min/BSA [...] 6:59 AM CDT 08/20/2023 1:01 PM CDT Radha Richards APRNNJarrettP., D.N.P. LAB BLOOD ADD-ON [facility] [address] [place] [address], [facility] [address] [place] [address] * Glucose, POCT (08/20/2023 6:58 AM CDT) Pathologist [facility] Glucose, POCT, B 107 70 - 140 mg/dL 08/20/2023 7:01 AM CDT PCLX Site Capillary 08/20/2023 7:01 AM CDT PCLX Blood 08/20/2023 6:58 AM CDT 08/20/2023 7:01 AM CDT Unknown Provider LAB POCT ORDERABLES- MANUAL POC [facility] [address] [place] [address], [facility] PCLX [facility] POC [address] [place] [address] * (ABNORMAL) Troponin T, 2h/6h, 5th Gen [...] CDT 08/19/2023 6:05 PM CDT Narrative [facility] - 08/19/2023 6:25 PM CDT Specimen Information: Specimen ID: [id number] Specimen Type: Blood Specimen Collection Start Date: 08/19/2023 ??6:00 PM Specimen Received Date: 08/19/2023 ??6:05 PM Specimen ID: [id number] Specimen Type: Blood Norman Mcdonough D.O. LAB BLOOD TROPO KATHI [facility] [address] [place] [address], [facility] STMA [facility] [address] [place] [address] * (ABNORMAL) Troponin T, Baseline, 5th gen (08/19/2023 3:49 PM CDT) [facility] Troponin T, Baseline, 5th gen 18(H) <=15 ng/L 08/19/2023 4:16 PM CDT STMA Blood (Blood, Venous) 08/19/2023 3:49 PM CDT 08/19/2023 3:56 PM CDT Norman Mcdonough D.O. LAB BLOOD TROPO KATHI [facility] Organization Address City/State/ZIP Co de Phone Number [facility] [address] [place] [address], [facility] [address] [place] [address] * (ABNORMAL) CBC with Differential, Blood (08/19/2023 3:49 PM CDT) [facility] Hemoglobin 11.7(L) 13.2 - 16.6 g/dL [...] - 6.45 x10(9)/L 08/19/2023 3:58 PM CDT PM Lymphocytes 1.21 0.95 - 3.07 x10(9)/L 08/19/2023 3:58 PM CDT [facility] Monocytes 0.46 0.26 - 0.81 x10(9)/L 08/19/2023 3:58 PM CDT [facility] Eosinophils 0.10 0.03 - 0.48 x10(9)/L 08/19/2023 3:58 PM CDT [facility] Basophils 0.03 0.01 - 0.08 x10(9)/L 08/19/2023 3:58 PM CDT [facility] Blood (Blood, Venous) 08/19/2023 3:49 PM CDT 08/19/2023 3:56 PM CDT Norman Mcdonough D.O. LAB BLOOD ADD-O N [facility] [address] [place] [address], [facility] STMA [facility] [address] [place] [address] DHPM [facility] [address] [place] [address] * (ABNORMAL) Basic Metabolic Panel (08/19/2023 3:49 [...] Mcdonough D.O. LAB BLOOD ADD-O N [facility] [address] [place] [address], [facility] [address] [place] [address] * DX Chest AP or PA and [...] CDT) Ventricular Rate ECG/Min 89 BPM MUSE [place] Interval 130 ms MUSE QRSD Interval 78 ms MUSE QT Interval 358 ms MUSE QTC Interval 435 ms MUSE P [place] 40 degrees MUSE R [place] 36 degrees MUSE T Wave [place] 81 degrees MUSE 08/19/2023 3:24 PM CDT [...] to first administration for fever, Starting on Sun 23 at 2157 aspirin chewable tablet 81 mg 81 mg, [...] Daily PRN, constipation, Starting on Sun08/19/23 at 2157, PO route preferred. Constipation unrelieved by docusate sodium (COLACE) if ordered. If results needed within 2 hours give rectal suppository if ordered. Swallow whole. Do NOT crush, chew, or split tablet. bisacodyL suppository 10 mg (DULCOLAX) 10 mg, rectal, Daily PRN, constipation, Starting on Sun08/19/23 at 2157, PO route preferred. Constipation unrelieved [...] intravenous, As needed, line care, Starting on Sun08/19/23 at 1520, Peripheral Intravenous Catheter and Rapid [...] intravenous, As needed, line care, Starting on Sun08/19/23 at 1520, Prior to and following infusion [...] 0900 0802 (Given - Provider: Kleber Sharma R.N.)1404 (JAN Hold - Provider: Transfer Provider, Automatic - Reason: Patient not available)1604 ([facility] Unhold - Provider: Transfer Provider, Automatic) 0806 (Given - Provider: Kleber Sharma R.N.) aspirin tablet 325 mg (CANCELED) 325 mg, oral, Daily, First dose on Sun08/20/23 at 0900 0936 (Given - Provider: Kassie Ahumada M.S., M.A., R.N., [facility]) atorvastatin tablet 40 mg (LIPITOR) (CANCELED) 40 mg, oral, Daily at bedtime, First dose on Sun08/19/23 at 2200 2045 (Given - Provider: Pamela Jason RJarrettNJarrett) 1404 ([facility] Hold - Provider: Transfer Provider, Automatic - Reason: Patient not available)1604 ([facility] Unhold - Provider: Transfer Provider, [...] - Provider: Kassie Ahumada M.S., M.A., R.N., [facility]) 0802 (Given - Provider: Kleber Sharma R.N.)1404 ([facility] Hold - Provider: Transfer Provider, Automatic - Reason: Patient not available)1604 ([facility] Unhold - Provider: Transfer Provider, Automatic) 0806 (Given - Provider: Kleber Sharma RJarrettNJarrett) ferrous sulfate tablet 65 mg of iron 65 mg of iron, oral, Daily, First dose on Sun08/20/23 at 0900 0936 (Given - Provider: Kassie Ahumada M.S., M.Krei., R.N., [facility]) 0802 (Given - Provider: Kleber Sharma R.N.)1404 ([facility] Hold - Provider: Transfer Provider, Automatic - Reason: Patient not available)1604 ([facility] Unhold - Provider: Transfer Provider, Automatic) 0806 (Given - Provider: Kleber Sharma R.N.) finasteride tablet 5 mg (PROSCAR) 5 mg, oral, Daily, First dose on Sun08/20/23 at 0900, See tube feeding guidelines for tube feeding administration instructions. 0936 (Given - Provider: Kassie Ahumada M.S., Bandar., R.N., [facility] 0802 (Given - Provider: Kleber Sharma R.N.)1404 ([facility] Hold - Provider: Transfer Provider, Automatic - Reason: Patient not available)1604 ([facility] Unhold - Provider: Transfer Provider, Automatic) 0806 (Given - Provider: Kleber Sharma R.N.) heparin (porcine) injection 5,000 Units 5,000 Units, subcutaneous, 3 times daily, First dose on Sun08/20/23 at 2000 2046 (Given - Provider: Pamela Jason RJarrettN.) 0802 (Given - Provider: Kleber Sharma R.N.)1404 ([facility] Hold - Provider: Transfer Provider, Automatic - Reason: Patient not available)1604 ([facility] Unhold - Provider: Transfer Provider, Automatic)1617 (Given - Provider: Kleber Sharma RJarrettN.)2122 (Given - Provider: Reggie Robertson RJarrettNJarrett) 0805 (Given - Provider: Kleber Sharma R.N.) [...] (Not Given - Provider: Kassie Ahumada M.S., MJanae, R.NJarrett, [facility] - Reason: Order parameters not met)1250 (Not Given - Provider: Kassie Ahumada M.S., Salome, R.NJarrett, [facility] - Reason: See Provider Order - Comment: Pt ate, provider stated to not give insulin)1746 (Not Given - Provider: Yasmine Caba R.N. - Reason: Order parameters not met) 0746 (Not Given - Provider: Kleber Sharma R.N. - Reason: Order parameters not met)1125 (Not Given - Provider: Kleber Sharma R.N. - Reason: Order parameters not met)1404 ([facility] Hold - Provider: Transfer Provider, Automatic [...] 2159 (Not Given - Provider: Pamela Jason RJarrettNJarrett - Reason: Order parameters not met) 1404 ([facility] Hold - Provider: Transfer Provider, Automatic - Reason: Patient not available)1604 ([facility] Unhold - Provider: Transfer Provider, Automatic)2121 (Not Given - Provider: Reggie Robertson RJarrettNJarrett - Reason: Order parameters not met) lisinopriL [...] - Provider: Kassie Ahumada M.S., M.A., R.N., [facility]) pantoprazole DR tablet 40 mg (PROTONIX) 40 mg, oral, Daily before breakfast, First dose on Sun08/21/23 at 0700, Swallow whole. Do NOT crush, chew, or split tablet. 0657 (Given - Provider: Reggie Robertson R.N.)1404 ([facility] Hold - Provider: Transfer Provider, Automatic - Reason: Patient not available)1604 ([facility] Unhold - Provider: Transfer Provider, Automatic) 0642 (Given - Provider: Reggie Robertson R.N.) rOPINIRole tablet 0.5 mg (REQUIP) 0.5 mg, oral, 3 times daily, First dose on Sun08/19/23 at 2200 0936 (Given - Provider: Kassie Ahumada M.S., M.A., R.N., [facility])1610 (Given - Provider: Yasmine Caba R.N.)2045 (Given - Provider: Pamela Jason RSammi) 0802 (Given - Provider: Kleber Sharma R.N.)1404 ([facility] Hold - Provider: Transfer Provider, Automatic - Reason: Patient not available)1604 ([facility] Unhold - Provider: Transfer Provider, Automatic)1617 (Given - Provider: Kleber Sharma R.N.)2121 (Given - Provider: Reggie Robertson R.N.) 0806 (Given - Provider: Kleber Sharma R.N.) sodium chloride 0.9 % injection 3 mL 3 mL, intravenous, Every 12 hours scheduled, First dose on Sun08/19/23 at 2100, Peripheral Intravenous Catheter and Rapid Infusion Catheter, when no infusion to maintain patency 1104 (Given - Provider: Kassie Ahumada M.S., M.A., R.N., [facility])2052 (Not Given - Provider: Pamela Jason R.N. - Reason: Other - Comment: Duplicate order) 0918 (Not Given - Provider: Kleber Sharma R.N. - Reason: Order parameters not met)1404 ([facility] Hold - Provider: Transfer Provider, Automatic - Reason: Patient not available)160 ([facility] Unhold - Provider: Transfer Provider, Automatic)2125 (Given - Provider: Reggie Robertson R.N.) 0955 (Given - Provider: Kleber Sharma R.N.) sodium chloride 0.9 % injection 3 mL 3 mL, intravenous, Every 12 hours scheduled, First dose on Sun08/20/23 at 0900, Peripheral Intravenous Catheter and Rapid Infusion Catheter, when no infusion to maintain patency 1103 (Given - Provider: Kassie Ahumada M.S., Loyda.Keri., R.NJarrett, [facility])2052 (Given - Provider: Pamela Jason R.N.) 0917 (Given - Provider: Kleber Shamra R.N.)1404 ([facility] Hold - Provider: Transfer Provider, Automatic - Reason: Patient not available)1604 ([facility] Unhold - Provider: Transfer Provider, Automatic)212 (Given - Provider: Reggie Robertson R.N.) 0955 (Given - Provider: Kleber Sharma R.N.) tamsulosin 24 hr capsule 0.4 mg (FLOMAX) 0.4 mg, oral, Daily, First dose on Sun08/20/23 at 0900, Swallow whole. Do NOT crush, chew or open capsule. 0936 (Given - Provider: Kassie Ahumada M.S., M.A., R.N., [facility]) 0802 (Given - Provider: Kleber Sharma R.N.)1404 ([facility] Hold - Provider: Transfer Provider, Automatic - Reason: Patient not available)1604 ([facility] Unhold - Provider: Transfer Provider, Automatic) 0806 (Given - Provider: Kleber Sharma R.N.) PRN Medication Order 08/20/2023 08/21/2023 08/22/2023 acetaminophen tablet 500 mg (TYLENOL) 500 mg, oral, Every 6 hours PRN, mild pain or score 1-3 of 10, fever, Notify service prior to first administration for fever, Starting on 08/19/23 at 2157 1404 ([facility] Hold - Provider: Transfer Provider, Automatic - Reason: Patient not available)1604 ([facility] Unhold - Provider: Transfer Provider, Automatic) bisacodyL DR tablet 10 mg (DULCOLAX) 10 mg, oral, Daily PRN, constipation, Starting on 08/19/23 at 2157, PO route preferred. Constipation unrelieved by docusate sodium (COLACE) if ordered. If results needed within 2 hours give rectal suppository if ordered. Swallow whole. Do NOT crush, chew, or split tablet. 1404 ([facility] Hold - Provider: Transfer Provider, Automatic - Reason: Patient not available)1604 ([facility] Unhold - Provider: Transfer Provider, Automatic) bisacodyL suppository 10 mg (DULCOLAX) 10 mg, rectal, Daily PRN, constipation, Starting on 08/19/23 at 2157, PO route preferred. Constipation unrelieved by docusate sodium (COLACE) if ordered. If results needed within 2 hours - give rectal suppository. 1404 ([facility] Hold - Provider: Transfer Provider, Automatic - Reason: Patient not available)1604 ([facility] Unhold - Provider: Transfer Provider, Automatic) calcium carbonate chewable tablet 400 mg of calcium (TUMS) 400 mg of calcium, oral, Every 2 hour PRN, indigestion, Not to exceed 12 tablets in 24 hours, Starting on 08/19/23 at 2157, Doses listed are in mg of elemental calcium. Take with food. 500 mg calcium carbonate contains 200 mg of elemental calcium. 1404 ([facility] Hold - Provider: Transfer Provider, Automatic - Reason: Patient not available)1604 ([facility] Unhold - Provider: Transfer Provider, [...] intravenous, As needed, line care, Starting on Sun08/19/23 at 1520, Peripheral Intravenous Catheter and Rapid Infusion Catheter, prior to blood sampling, post blood transfusion or post blood sampling 1404 ([facility] Hold - Provider: Transfer Provider, Automatic - Reason: Patient not available)1604 ([facility] Unhold - Provider: Transfer Provider, Automatic) sodium chloride 0.9 % injection 10 mL 10 mL, intravenous, As needed, line care, Starting on 08/19/23 at 2154, Peripheral Intravenous Catheter and Rapid Infusion Catheter, prior to blood sampling, post blood transfusion or post blood sampling 1404 ([facility] Hold - Provider: Transfer Provider, Automatic - Reason: Patient not available)1604 ([facility] Unhold - Provider: Transfer Provider, Automatic) sodium chloride 0.9 % injection 3 mL 3 mL, intravenous, As needed, line care, Starting on 08/19/23 at 1520, Prior to and following infusion and between multiple consecutive infusions: sodium chloride 0.9 % injection 1404 ([facility] Hold - Provider: Transfer Provider, Automatic - Reason: Patient not available)1604 ([facility] Unhold - Provider: Transfer Provider, Automatic) sodium chloride 0.9 % injection 3 mL 3 mL, intravenous, As needed, line care, Starting on 08/19/23 at 2154, Prior to and following infusion and between multiple consecutive infusions: sodium chloride 0.9 % injection 1404 ([facility] Hold - Provider: Transfer Provider, Automatic - Reason: Patient not available)1604 ([facility] Unhold - Provider: Transfer Provider, Automatic) documented in this encounter Additional Health Concerns Assessment Noted Time PHQ-9 Depression Total Score: 0 08/20/20 23 12:00 PM CDT documented as of this encounter Care Teams Edger Machine Operator Relationship Specialty Start Date End Date Elsewhere, Pcp PCP - General Internal Medicine 08/19/23 09/27/23 documented as of this encounter
--- OUTSIDE RECORDS SUMMARY | 2023-12-30 07:29 | XMS_ITS | Encounter Summary ---
Author Name Unknown Organization [facility] Address [address] [place] [id number] Care Team Providers Care Chemical Economist Name Role Phone Elsewhere, Pcp Primary Care Provider Unavailabl e Reason for Referral * MRI/CAT/PET Scan (Routine) - Closed Specialty Diagnoses / Procedures Referred By Sebas giemnez Referred To Contact Radiology Diagnoses Stenosis Aortic Valve Acquired Procedures CT Chest Angiogram with IV Contrast Billy Segal APRN, C.N.PJarrett, D.N.P. [address] [place] [phone] [facility] Referral ID Status Reason Start Date Expiration Date Visits Re quested Visits Authorized [id number] Closed 09/05/2023 10/05/2023 1 1 Reason for Visit * MRI/CAT/PET Scan (Routine) - Closed Specialty Diagnoses / Procedures Referred By Chonac ammy Referred To Contact Radiology Diagnoses Stenosis Aortic Valve Acquired Procedures CT Chest Angiogram with IV Contrast Billy Segal APRN, C.N.P., D.N.P. [address] [place] [phone] [facility] Referral ID Status Reason Start Date Expiration Date Visits Re quested Visits Authorized [id number] Closed 09/05/2023 10/05/2023 1 1 Encounter Details Date Type Department Care Team (Latest Contact Info) Description 09/05/2023 6:40 AM CDT - 09/05/2023 11:59 PM CDT Hospital Encounter Department of Radiology, [facility], in [place], [place] [address] [place] [address] Billy Segal APRN, C.N.P., D.N.P. [address] [place] [address] Stenosis Aortic Valve Acquired Discharge Disposition: Home [...] (200 mg total) daily. 0 09/26/2023 09/26/2023 amiodarone (PACERONE) 200 mg tablet Take 1 tablet (200 mg total) by mouth 2 (two) times a day for 2 days, THEN 1 tablet (200 mg total) daily. 34 tablet 0 09/26/2023 12/24/2023 aspirin 81 mg chewable tablet Chew 1 [...] st Contact Info) Description 01/04/2024 10:30 AM KITCHEN BATH DESIGNER Comprehensive Visit Division of Hematology in [place], [place] [address] [place] [id number] Brandy Real M.D., M.B.A. [address] [place] [address] documented as of this encounter Procedures Procedure [...] aortic stenosis. Billy Segal APRN, C.N.P., D.N.P. [facility] [place] [place] CT PROCEDURES documented in this encounter Visit [...] documented as of this encounter Care Teams Chemical Economist Relationship Specialty Start Date End Date Elsewhere, Pcp PCP - General Internal Medicine 08/19/23 09/27/23 documented as of this encounter
--- OUTSIDE RECORDS SUMMARY | 2023-12-30 07:29 | XMS_ITS | Encounter Summary ---
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 Name Role Phone Elsewhere, Pcp Primary Care Provider Unavailabl e Reason for Visit * Reason Comments Chest Pain * Auth/Cert (Routine) Specialty Diagnoses / Procedures Referred By Contac t Referred To Contact Diagnoses Stenosis Mitral And Aortic Stenosis Pain Chest Procedures ER Referral ID Status Reason Start Date Expiration Date Visits Re quested Visits Authorized [id number] 1 1 Encounter Details Date Type Department Care Team (Late st Contact Info) Description 08/19/2023 3:15 PM CDT - 08/22/2023 11:57 AM CDT Hospital Encounter [facility], [facility], [facility], Sixth Floor [address] [place] [address] [phone] Norman Mcdonough D.O. [address] [place] [phone] Khushbu Bliss M.D. [address] [place] [phone] Jennie Enriquez M.D. [address] [place] [address] [phone] Pain Chest (Primary Dx); Stenosis Mitral And [...] - 1 event recorded on loop recorder ([id number]), lasting 8 minutes on 11/25/20 #7 Hypertension [...] 4:00 PM Sarah Miller M.D., M.P.H.; 01 [facility] Cardiovascular Surgery 09/19/2023 4:[address] PM [address] [facility]; [facility] Cardiovascular Surgery For appointment details refer to your Patient Appointment Guide. HOSPITAL COURSE Admission Weight: 86.5 kg Dismissal Weight: 82.6 kg BMI: Body mass index is 27.6 kg/m??. Mr. Harris is a 73-year-old gentleman who presented to [facility] emergency department with shortness of breath with [...] symptoms. This prompted him to present to [facility] emergency department. Of note, he was seen by his local provider on 08/08/23, his Lisinopril dose was decreased to 2.5 mg daily at that time due to hypotension and was referred to [facility] for an echocardiogram to monitor his aortic [...] dose Aspirin. He was admitted to the [email or web address] Cardiology 4 service for further monitoring and [...] of Atrial Fibrillation during the period of 5061-2425, on 11/25/20 that lasted for 8 minutes. [...] Status Erythropoietin (EPO) In process Pernicious Anemia Erin In process DISCHARGE DISPOSITION: Home or Self [...] through Care Everywhere. * Pantoprazole (By mouth) (Wolof) * Acetaminophen (By mouth) (Wolof) documented in this encounter Medications at Time [...] history of AFIB discovered on loop recorder [id number]. Continue monitor. Reduced aspirin from 325 mg to 81 mg MANJEET, dose adjust medications for eCrCl < 50 mL/min. Christina Lou, Pharm.D., R.Ph. * Dxa Montez M.D., Ph.D. - 08/21/2023 11:08 AM CDT RST CARD 4 Progress Note Severe trileaflet aortic stenosis TTE (08/17/2023): LVEF 67% with concentric remodeling, MG 44 mmHg, and JOANA 0.90 cm2. Normal appearing IVC with inspiratory collapse. History of stroke (left lateral basal ganglia infarct April 2019) On full dose aspirin, transitioned to 81 mg this hospitalization S/p loop recorder, [id number]. Per chart showed 1-4 events of AF. [...] - 1 event recorded on loop recorder ([id number]), lasting 8 minutes on 11/25/20 #6 Hypertension #7 Hyperlipidemia #8 Type 2 diabetes mellitus, most recent A1C 6.3 (05/01/23) #9 BPH #10 Iron deficiency anemia #11 Hypomagnesemia - repleted #12 GERD Mr. Harris is a 73 y.o. male who was admitted to [email or web address] Cardiology 4 service for shortness of breathand [...] Fibrillation lasting 8 minutes on 11/25/20 from 1127-9904. He was on high dose Aspirin. Given [...] - 1 event recorded on loop recorder ([id number]), lasting 8 minutes on 11/25/20 #5 Hypertension #6 Hyperlipidemia #7 Type 2 diabetes mellitus, most recent A1C 6.3 (05/01/23) #8 BPH #9 Iron deficiency anemia #10 Hypomagnesemia Mr. Harris is a 73 y.o. male who was admitted to [email or web address] Cardiology 4 service for shortness of breathand [...] hour. This prompted him to present to [facility] emergency department. He stated that the pain was not radiating and did not have other associated symptoms. Of note, he was seen by his local provider on 08/08/23, his Lisinopril dose was decreased to 2.5 mg daily due to hypotension and was referred to [facility] for an echocardiogram to monitor his aortic [...] dose Aspirin. He was admitted to the [email or web address] Cardiology 4 service for further monitoring and [...] lasting for 8 minutes on 11/25/20 from 5416-1705. He remains on high dose Aspirin. PLAN: [...] does not have a prior history of PA but did have a stroke in 2019. [...] On full dose aspirin S/p loop recorder, [id number]. Per chart showed 1-4 events of AF. [...] 08/19/2023 8:26 PM CDT SUBJECTIVE REFERRAL SOURCE [facility] Emergency Room, [facility], [place], [place] CHIEF COMPLAINT/REASON FOR VISIT Episodes of [...] trouble viewing the loop recorder reports in [facility] everywhere. Patient presented to the [...] area of 1.43 cm^2 (report available in [facility] everywhere). LVEF was approximately 70%. [...] per review of labo ratory results in [facility] Everywhere. Chest x-ray revealed no [...] area of 1.43 cm^2 (report available in [facility] everywhere). As of August 17, [...] factors for coronary disease (hyperlipidemia, diabetes, hyperten jocye, age, male gender). If further intervention on [...] reviewing the complete loop recorder reports from [facility] everywhere-we will continue to follow [...] is a 73 y.o. male admitted to [facility] 4 service on 08/19/2023 from the ED [...] Cardiovascular Surgery was consulted to see by [facility] 4 for evaluation and treatment of aortic [...] Glomerular Filtration Rate (GFR) 30 To 44 ([facility]) #4 Hyperlipidemia On Treatment #5 Benign Prostatic Hyperplasia Without Obstruction #6 Atrial Fibrillation Paroxysmal ([facility]) #7 Diabetes Mellitus Type 2 ([facility]) #8 Stroke ([facility]) #9 Anemia Iron Deficiency #10 Basal Cell Carcinoma Skin Other Parts Face #11 Squamous Cell Carcinoma Skin Other Parts Face Mr. Harris is a 73 y.o. male admitted to [place] [address] for evaluation and management of chest pain and dyspnea in the setting of known severe aortic stenosis. [facility] was consulted for consideration for surgical aortic valve replacement. Patient will need his coronary arteries evaluated for CAD. This consult will be staffed by Dr. Miller. Please call the [facility] senior engineering team leader pager [phone]) with any questions. documented in this encounter Nursing Notes * Kleber Sharma RMihir. - 08/22/2023 10:53 AM CDT Shift Goals: Clinical Goals for the Shift: Patient will remain NPO overnight. Identify possible barriers to meeting goals/advancing plan of care: None End of Shift Summary: Patient [place] [facility] [place] . All VSS at time [...] Echo was done here at [facility] last Sunday but he has nofollow-up appointments. They recently moved to [place]. They have been getting care in [place]. We have no medical records for comparison. [...] Aortic Stenosis Mare Noble M.D. Resident 08/19/23 0096 * Rowena Oro R.N. - 08/19/2023 3:22 [...] is a 73-year-old gentleman who presented to [facility] emergency department with shortness of breath with [...] symptoms. This prompted him to present to [facility] emergency department. Of note, he was seen by his local provider on 08/08/23, his Lisinopril dose was decreased to 2.5 mg daily at that time due to hypotension and was referred to [facility] for an echocardiogram to monitor his aortic [...] dose Aspirin. He was admitted to the [facility] [[email or web address] Cardiology 4 service for further monitoring and [...] of Atrial Fibrillation during the period of 7491-1184, on 11/25/20 that lasted for 8 minutes. [...] st Contact Info) Description 01/04/2024 10:30 AM COMPANION CAREGIVER Comprehensive Visit Division of Hematology in [place], [place] [address] [place] [phone] Brandy Real M.D., M.B.A. [address] [place] [phone] documented as of this encounter Procedures Procedure [...] LAB POCT ORDERABLES- MANUAL Performing Organization Address City/[facility] Co de Phone Number [facility] [address] [place] [address], [facility] PCLX [facility] POC [address] [place] [address] * Gastrin (08/22/2023 5:14 AM CDT) [facility] Gastrin, S 21 pg/mL 08/22/2023 6:26 PM CDT [facility] Comment: Not consistent with pernicious anemia. ----REFERENCE VALUE---- <100 Reference ranges valid for >= 8 hour fast. Blood 08/22/2023 5:14 AM CDT 08/22/2023 3:36 PM CDT Billy Segal APRN, C.N.P., D.N.P. LAB BLOOD NON ADD-ON Performing Organization Address City/[facility]/ZIP Co de Phone Number [facility] [address] [place] [address] [facility] [address] [place] [address] * Intrinsic Factor Blocking Antibody, Serum (08/22/2023 5:14 AM CDT) [facility] Intrinsic Factor Blocking Ab, S Negative Negative 08/22/2023 1:13 PM CDT [facility] Comment:Gastrin test was per formed. Comment SEE COMMENT 08/22/2023 1:13 PM CDT [facility] Comment: Intrinsic Factor Blocking Antibody (IFBA) antibodies are absent in approximately 50% of individuals with pernicious anemia (PA). The absence of elevated IFBA antibodies does not rule out the presence of PA; further studies such as gastrin testing may be indicated. Blood 08/22/2023 5:14 AM CDT 08/22/2023 10:03 AM CDT Billy Segal APRN, C.N.P., D.N.P. LAB BLOOD NON ADD-ON [facility] [address] [place] [address] [facility] [address] [place] [address] * (ABNORMAL) Comprehensive Metabolic Panel (08/22/2023 5:14 AM CDT) [facility] Potassium, S 4.7 3.6 - 5.2 mmol/L [...] CDT 08/22/2023 6:08 AM CDT Billy Segal APRN C.N.P., D.N.P. LAB BLOOD ADD-ON [facility] [address] [place] [address], [facility] [address] [place] [address] * Ferritin (08/22/2023 5:14 AM CDT) Ferritin, S 243 31 - 409 mcg/L 08/22/2023 6:31 AM CDT DTL Blood (Blood, Venous) 08/22/2023 5:14 AM CDT 08/22/2023 6:06 AM CDT Cata Richards APRN.N.P., D.N.P. LAB BLOOD ADD-ON Performing Organization Address City/[facility]/ZIP Co de Phone Number [facility] [address] [place] [address], [facility] [address] [place] [address] * (ABNORMAL) Iron and Total Iron-Binding Capacity (08/22/2023 5:14 AM CDT) Pathologist [facility] Iron 72 50 - 150 mcg/dL 08/22/2023 6:31 AM CDT DTL Total Iron Binding Capacity 203(L) 250 - 400 mcg/dL 08/22/2023 6:31 AM CDT DTL Percent Saturation 35 14 - 50 % 08/22/2023 6:31 AM CDT DTL Blood (Blood, Venous) 08/22/2023 5:14 AM CDT 08/22/2023 6:06 AM CDT Cata Richards APRN.N.P., D.N.P. LAB BLOOD ADD-ON Performing Organization Address [facility] Co de Phone Number [facility] [address] [place] [address], [facility] [address] [place] [address] * (ABNORMAL) Pernicious Anemia Erin (08/22/2023 5:14 AM CDT) Pathologist [facility] Vitamin B12 Assay, S 123(L) 180 - 914 ng/L 08/22/2023 12:19 PM CDT [facility] Comment: Low B12; Intrinsic Factor Blocking Antibody test was performed. Blood (Blood, Venous) 08/22/2023 5:14 AM CDT 08/22/2023 10:03 AM CDT Cata Richards APRN.N.P., D.N.P. LAB BLOOD NON ADD-ON [facility] [address] [place] [address] [facility] [address] [place] [address] * (ABNORMAL) Magnesium (08/22/2023 5:14 AM CDT) [facility] Magnesium, S 2.4(H) 1.7 - 2.3 mg/dL 08/22/2023 6:31 AM CDT DTL Blood (Blood, Venous) 08/22/2023 5:14 AM CDT 08/22/2023 6:06 AM CDT Billy Segal APRN, C.N.P., D.N.P. LAB BLOOD ADD-ON [facility] [address] [place] [address], [facility] [address] [place] [address] * (ABNORMAL) CBC with Differential, Blood (08/22/2023 5:14 AM CDT) [facility] Hemoglobin 11.5(L) 13.2 - 16.6 g/dL 08/22/2023 [...] D.N.P. LAB BLOOD ADD-ON Performing Organization Address [facility] Co de Phone Number [facility] [address] [place] [address], [facility] DTL [facility] [address] [place] [address] * (ABNORMAL) Hemoglobin A1c (08/22/2023 5:14 AM [...] D.N.P. LAB BLOOD ADD-ON Performing Organization Address City/[facility]/ZIP Co de Phone Number [facility] [address] [place] [address], [facility] DTL [facility] [address] [place] [address] * Erythropoietin (EPO) (08/22/2023 5:08 AM CDT) [facility] Erythropoietin (EPO), S 7.5 2.6 - 18.5 mIU/mL 08/22/2023 12:01 PM CDT [facility] Blood (Blood, Venous) 08/22/2023 5:08 AM CDT 08/22/2023 10:39 AM CDT Cata Richards APRN.NJarrettPJarrett, D.N.P. LAB BLOOD ADD-ON [facility] [address] [place] [address] [facility] [address] [place] [address] * (ABNORMAL) Glucose, POCT (08/21/2023 9:19 PM CDT) [facility] Glucose, POCT, B 154(H) 70 - 140 mg/dL 08/21/2023 9:31 PM CDT PCLX Site Capillary 08/21/2023 9:31 PM CDT PCLX Last Intake 3-4 hours 08/21/2023 9:31 PM CDT PCLX Blood 08/21/2023 9:19 PM CDT 08/21/2023 9:31 PM CDT Unknown Provider LAB POCT ORDERABLES- MANUAL [facility] [address] [place] [address], [facility] PCLX [facility] POC [address] [place] [address] * (ABNORMAL) Glucose, POCT (08/21/2023 5:19 PM CDT) [facility] Glucose, POCT, B 177(H) 70 - 140 mg/dL 08/21/2023 5:21 PM CDT PCLX Site Capillary 08/21/2023 5:21 PM CDT PCLX Last Intake 3-4 hours 08/21/2023 5:21 PM CDT PCLX Blood 08/21/2023 5:19 PM CDT 08/21/2023 5:21 PM CDT Unknown Provider LAB POCT ORDERABLES- MANUAL [facility] [address] [place] [address], [facility] PCLX [facility] POC [address] [place] [address] * CORONARY ANGIOGRAPHY (08/21/2023 3:16 PM CDT) [...] LAB POCT ORDERABLES- MANUAL Performing Organization Address City/[facility]/ZIP Co de Phone Number [facility] [address] [place] [address], [facility] PCLX [facility] [address] [place] [address] * Glucose, POCT (08/21/2023 6:56 AM CDT) Glucose, POCT, B 127 70 - 140 mg/dL 08/21/2023 7:06 AM CDT PCLX Site Capillary 08/21/2023 7:06 AM CDT PCLX Blood 08/21/2023 6:56 AM CDT 08/21/2023 7:06 AM CDT Unknown Provider LAB POCT ORDERABLES- MANUAL Performing Organization Address [facility] Co de Phone Number [facility] [address] [place] [address], [facility] PCLX [facility] P[facility] [address] [place] [address] * Lipid Panel (08/21/2023 4:52 AM CDT) [...] Segal APRN, C.N.P., D.N.P. LAB BLOOD ADD-ON [facility] [address] [address], [facility] [place] [address] * (ABNORMAL) Basic Metabolic Panel (08/21/2023 4:52 AM CDT) [facility] Potassium, S 4.9 3.6 - 5.2 mmol/L [...] Segal APRN, C.N.P., D.N.P. LAB BLOOD ADD-ON [facility] [address] [place] [address], [facility] [address] [place] [address] * (ABNORMAL) Cystatin C with Estimated GFR (08/21/2023 4:49 AM CDT) [facility] eGFR by Cystatin C 30(L) >60 mL/min/BSA [...] CDT 08/21/2023 8:13 AM CDT Billy Segal APRN, C.N.P., D.N.P. LAB BLOOD ADD-ON Performing Organization Address City/[facility]/ZIP Co de Phone Number [facility] [address] [place] [address], [facility] DTL [facility] [address] [place] [address] * Glucose, POCT (08/20/2023 9:17 PM CDT) Glucose, POCT, B 130 70 - 140 mg/dL 08/20/2023 9:19 PM CDT PCLX Site Capillary 08/20/2023 9:19 PM CDT PCLX Last Intake 3-4 hours 08/20/2023 9:19 PM CDT PCLX Blood 08/20/2023 9:17 PM CDT 08/20/2023 9:19 PM CDT Unknown Provider LAB POCT ORDERABLES- MANUAL Performing Organization Address City/[facility]/ZIP Co de Phone Number [facility] [address] [place] [address], [facility] PCLX [facility] POC [address] [place] [address] * DX Panorex Teeth (08/20/2023 6:23 PM [...] CDT EXAM: ??DX PANOREX TEETH Procedure Note Bathla, Stan, M.B.B.S., [facility] - 08/20/2023 EXAM: DX PANOREX TEETH IMPRESSION: [...] Unknown Provider LAB POCT ORDERABLES- MANUAL [facility] [address] [place] [address], [facility] PCLX [facility] POC [address] [place] [address] * Dipstick, Urine (08/20/2023 3:26 PM CDT) [...] Radha Richards APRNNKory, D.N.P. LAB URINE ORDERABLES [facility] [address] [place] [address], [facility] [address] [place] [address] * pH, Urine (08/20/2023 3:26 PM CDT) pH, U 6.9 4.5 - 8.0 08/20/2023 4:2 4 PM CDT DT Urine 08/20/2023 3:26 PM CDT 08/20/2023 3:43 PM CDT Radha Richards APRNN.P., D.N.P. LAB URINE ORDERABLES Performing Organization Address City/[facility]/ZIP Co de Phone Number [facility] [address] [place] [address], [facility] [address] [place] [address] * Osmolality, Urine (08/20/2023 3:26 PM CDT) Osmolality, U 239 150 - 1150 mOsm/kg 08/20/2023 4:24 PM CDT DT Urine 08/20/2023 3:26 PM CDT 08/20/2023 3:43 PM CDT Cata Richards APRN.N.P., D.N.P. LAB URINE ORDERABLES Performing Organization Address City/[facility]/ZIP Co de Phone Number [facility] [address] [place], [place] [phone] [place] [address] [address] [place] [address] * Microscopic Automated (08/20/2023 3:26 PM CDT) Microscopy Normal 08/20/2023 3:5 3 PM CDT DTL Urine 08/20/2023 3:26 PM CDT 08/20/2023 3:43 PM CDT Cata Richards APRN.N.PJarrett, D.N.P. LAB URINE ORDERABLES Performing Organization Address City/[facility]/ZIP Co de Phone Number [facility] [address] [place] [address], [facility] [address] [place] [address] * Urinalysis with Microscopic: Urine, Midstream (08/20/2023 [...] D.N.P. LAB URINE ORDERABLES Performing Organization Address City/[facility]/ZIP Co de Phone Number [facility] [address] [place] [address], [facility] [address] [place] [address] * (ABNORMAL) Glucose, POCT (08/20/2023 11:55 AM CDT) Pathologist [facility] Glucose, POCT, B 281(H) 70 - 140 mg/dL 08/20/2023 12:06 PM CDT PCLX Blood 08/20/2023 11:5 5 AM CDT 08/20/2023 12:06 PM CDT Unknown Provider LAB POCT ORDERABLES- MANUAL [facility] [address] [place] [address], [facility] PCLX [facility] POC [address] [place] [address] * Magnesium (08/20/2023 7:01 AM CDT) Pathologist [facility] Magnesium, S 1.9 1.7 - 2.3 mg/dL 08/20/2023 8:09 AM CDT DTL Blood (Blood, Venous) 08/20/2023 7:01 AM CDT 08/20/2023 7:48 AM CDT Palomo Flores P.A.-C. LAB BLOOD ADD -ON Performing Organization Address City/[facility]/ZIP Co de Phone Number [facility] [address] [place] [address], [facility] [address] [place] [address] * (ABNORMAL) Basic Metabolic Panel (08/20/2023 7:01 AM CDT) Pathologist [facility] Potassium, S 4.8 3.6 - 5.2 mmol/L [...] Palomo Flores P.A.-C. LAB BLOOD ADD -ON [facility] [address] [place] [address], [facility] [address] [place] [address] * (ABNORMAL) Cystatin C with Estimated GFR (08/20/2023 6:59 AM CDT) Pathologist [facility] eGFR by Cystatin C 33(L) >60 mL/min/BSA [...] CDT 08/20/2023 1:01 PM CDT Radha Richards APRNNKory, D.N.P. LAB BLOOD ADD-ON [facility] [address] [place] [address], [facility] DTL [facility] [address] [place] [address] * Glucose, POCT (08/20/2023 6:58 AM CDT) Pathologist [facility] Glucose, POCT, B 107 70 - 140 mg/dL 08/20/2023 7:01 AM CDT PCLX Site Capillary 08/20/2023 7:01 AM CDT PCLX Blood 08/20/2023 6:58 AM CDT 08/20/2023 7:01 AM CDT Unknown Provider LAB POCT ORDERABLES- MANUAL [facility] [address] [place] [address], [facility] PCLX [facility] POC [address] [place] [address] * (ABNORMAL) Troponin T, 2h/6h, 5th Gen [...] PM CDT 08/19/2023 6:05 PM CDT Narrative [facility] - 08/19/2023 6:25 PM CDT Specimen Information: Specimen ID: [id number] Specimen Type: Blood Specimen Collection Start Date: 08/19/2023 ??6:00 PM Specimen Received Date: 08/19/2023 ??6:05 PM Specimen ID: [id number] Specimen Type: Blood Norman Mcdonough D.O. LAB BLOOD POORNIMAO KATHI Performing Organization Address City/[facility]/[place] [address] * (ABNORMAL) Troponin T, Baseline, 5th gen (08/19/2023 3:49 PM CDT) Pathologist [facility] Troponin T, Baseline, 5th gen 18(H) <=15 ng/L 08/19/2023 4:16 PM CDT [facility] Blood (Blood, Venous) 08/19/2023 3:49 PM CDT 08/19/2023 3:56 PM CDT Norman Mcdonough D.O. LAB BLOOD TROPO KATHI [facility] [address] [place], [place] [phone] [place] [address] * (ABNORMAL) CBC with Differential, Blood (08/19/2023 3:49 PM CDT) Pathologist [facility] Hemoglobin 11.7(L) 13.2 - 16.6 g/dL 08/19/2023 [...] Norman Mcdonough D.O. LAB BLOOD ADD-O N [facility] [address] [place] [address], [facility] STMA [facility] [address] [place], [place] [address] [place] [address] [place] [address] * (ABNORMAL) Basic Metabolic Panel (08/19/2023 3:49 PM CDT) [facility] Potassium, P 4.7 3.6 - 5.2 mmol/L [...] Norman Mcdonough D.O. LAB BLOOD ADD-O N [facility] [address] [place] [address], [facility] [address] [place] [address] * DX Chest AP or PA and [...] CDT) Ventricular Rate ECG/Min 89 BPM MUSE WA Interval 130 ms MUSE QRSD Interval 78 ms MUSE QT Interval 358 ms MUSE QTC Interval 435 ms MUSE P [place] 40 degrees MUSE R [place] 36 degrees MUSE T Wave [place] 81 degrees MUSE 08/19/2023 3:24 PM CDT 08/19/2023 3:35 PM CDT Impressions MUSE - 08/19/2023 3:35 PM CDT Normal sinus rhythm Normal ECG No previous ECGs available Reviewed by MARIELA Khanna Narrative Procedure Note Duc Westfall M.D., Ph.D. - 08/19/2023 IMPRESSION: Normal sinus rhythm Normal ECG No previous ECGs available Reviewed by MARIELA Khanna Norman S Ceasar D.O. ECG ORDERABLES MUSE NA documented in [...] of iron, oral, Daily, First dose on 08/20/23 at 0900 Given 08/22/2023 8:06 AM CDT [...] intravenous, As needed, line care, Starting on [place] 08/19/23 at 2154, Peripheral Intravenous Catheter and Rapid Infusion Catheter, prior to blood sampling, post blood transfusion or post blood sampling sodium chloride 0.9 % injection 3 mL 3 mL, intravenous, As needed, line care, Starting on [place] 08/19/23 at 1520, Prior to and following infusion and between multiple consecutive infusions: sodium chloride 0.9 % injection sodium chloride 0.9 % injection 3 mL 3 mL, intravenous, Every 12 hours scheduled, First dose on [place] 08/19/23 at 2100, Peripheral Intravenous Catheter and Rapid Infusion Catheter, when no infusion to maintain patency Given 08/22/2023 9: 55 AM CDT 3 mL Given 08/21/2023 9:26 PM CDT 3 mL Given 08/20/2023 11:04 AM CDT 3 mL sodium chloride 0.9 % injection 3 mL 3 mL, intravenous, As needed, line care, Starting on [place] 08/19/23 at 2154, Prior to and following [...] Automatic - Reason: Patient not available)1604 ([facility] Unhold - Provider: Transfer Provider, Automatic) 0806 (Given - Provider: Kleber Sharma R.N.) aspirin tablet 325 mg (CANCELED) 325 mg, oral, Daily, First dose on Sun08/20/23 at 0900 0936 (Given - Provider: Kassie Ahumada M.S., M.A., R.N., [place]) atorvastatin tablet 40 mg (LIPITOR) (CANCELED) 40 mg, oral, Daily at bedtime, First dose on Sun08/19/23 at 2200 2045 (Given - Provider: Pamela Jason RJarrettNJarrett) 1404 ([facility] Hold - Provider: Transfer Provider, Automatic - Reason: Patient not available)1604 ([facility] Unhold - Provider: Transfer Provider, Automatic) atorvastatin tablet 80 mg (LIPITOR) 80 mg, oral, Daily at bedtime, First dose (after last modification) on Sun08/21/23 at 2100 2122 (Given - Provider: Reggie Robertson R.N.) cholecalciferol tablet 10 mcg (VITAMIN D3) 10 mcg, oral, Daily, First dose on Sun08/20/23 at 0900, cholecalciferol (vitamin D3) orderable was interchanged for cholecalciferol (vitamin D3) tablet/capsule 0936 (Given - Provider: Kassie Ahumada M.S., M.A., R.N., [place]) 0802 (Given - Provider: Kleber Sharma R.N.)1404 ([facility] Hold - Provider: Transfer Provider, Automatic - Reason: Patient not available)1604 ([facility] Unhold - Provider: Transfer Provider, Automatic) 0806 (Given - Provider: Kleber Sharma R.N.) ferrous sulfate tablet 65 mg of iron 65 mg of iron, oral, Daily, First dose on Sun08/20/23 at 0900 0936 (Given - Provider: Kassie Ahumada M.S., M.Keri., R.N., [place]) 0802 (Given - Provider: Kleber Sharma R.N.)1404 ([facility] Hold - Provider: Transfer Provider, Automatic - Reason: Patient not available)1604 ([facility] Unhold - Provider: Transfer Provider, Automatic) 0806 (Given - Provider: Felipe QuintanaN.) finasteride tablet 5 mg (PROSCAR) 5 mg, oral, Daily, First dose on Sun08/20/23 at 0900, See tube feeding guidelines for tube feeding administration instructions. 0936 (Given - Provider: Kassie Ahumada M.S., M.A., R.N., [place]) 0802 (Given - Provider: Kleber Sharma R.N.)1404 ([facility] Hold - Provider: Transfer Provider, Automatic - Reason: Patient not available)1604 ([facility] Unhold - Provider: Transfer Provider, Automatic) 0806 (Given - Provider: Kleber Sharma R.N.) heparin (porcine) injection 5,000 Units 5,000 Units, subcutaneous, 3 times daily, First dose on Sun08/20/23 at 2000 2046 (Given - Provider: Pamela Jason RJarrettN.) 0802 (Given - Provider: Kleber Sharma R.N.)1404 ([facility] Hold - Provider: Transfer Provider, Automatic - Reason: Patient not available)1604 ([facility] Unhold - Provider: Transfer Provider, Automatic)1617 (Given - Provider: Kleber Sharma RJarrettN.)2122 (Given - Provider: Reggie Robertson R.N.) 0805 [...] - Provider: Kassie Ahumada M.S., M.A., R.N., [place] - Reason: Order parameters not met)1250 (Not Given - Provider: Kassie Ahumada M.S., M.A., R.N., [place] - Reason: See Provider Order - Comment: [...] Automatic - Reason: Patient not available)1604 ([facility] Unhold - Provider: Transfer Provider, Automatic)1725 (Not [...] Automatic - Reason: Patient not available)1604 ([facility] Unhold - Provider: Transfer Provider, Automatic)2121 (Not Given - Provider: Felipe EarlyNJarrett - Reason: Order parameters not met) lisinopriL [...] - Provider: Kassie Ahumada M.S., M.A., R.N., [place]) pantoprazole DR tablet 40 mg (PROTONIX) 40 mg, oral, Daily before breakfast, First dose on Sun08/21/23 at 0700, Swallow whole. Do NOT crush, chew, or split tablet. 0657 (Given - Provider: Reggie Robertson RSammi)1404 ([facility] Hold - Provider: Transfer Provider, Automatic - Reason: Patient not available)1604 ([facility] Unhold - Provider: Transfer Provider, Automatic) 0642 (Given - Provider: Ryan Early.N.) rOPINIRole tablet 0.5 mg (REQUIP) 0.5 mg, oral, 3 times daily, First dose on Sun08/19/23 at 2200 0936 (Given - Provider: Kassie Ahumada M.S., M.A., R.N., [place])1610 (Given - Provider: Yasmine Caba RSammi)2045 (Given - Provider: Pamela Jason RSammi) 0802 [...] (Given - Provider: Kassie Ahumada M.S., M.A., R.NJarrett, [place])2052 (Not Given - Provider: Pamela Jason R.N. [...] - Provider: Kassie Ahumada M.S., M.A., R.N., [place])2052 (Given - Provider: Pamela Jason R.N.) 0917 (Given - Provider: Kleber Sharma R.N.)1404 ([facility] Hold - Provider: Transfer Provider, Automatic - Reason: Patient not available)1604 ([facility] Unhold - Provider: Transfer Provider, Automatic)2125 (Given - Provider: Reggie Robertson R.N.) 0955 (Given - Provider: Kleber Sharma R.N.) tamsulosin 24 hr capsule 0.4 mg (FLOMAX) 0.4 mg, oral, Daily, First dose on Sun08/20/23 at 0900, Swallow whole. Do NOT crush, chew or open capsule. 0936 (Given - Provider: Kassie Ahumada M.S., M.A., R.N., [place]) 0802 (Given - Provider: Kleber Sharma R.N.)1404 ([facility] Hold - Provider: Transfer Provider, Automatic - Reason: Patient not available)1604 ([facility] Unhold - Provider: Transfer Provider, Automatic) 0806 (Given - Provider: Kleber Sharma R.N.) PRN Medication Order 08/20/2023 08/21/2023 08/22/2023 acetaminophen tablet 500 mg (TYLENOL) 500 mg, oral, Every 6 hours PRN, mild pain or score 1-3 of 10, fever, Notify service prior to first administration for fever, Starting on 08/19/23 at 2157 1404 ([facility] Hold - Provider: Transfer Provider, Automatic - Reason: Patient not available)1604 ([facility] Unhold - Provider: Transfer Provider, Automatic) bisacodyL DR tablet 10 mg (DULCOLAX) 10 mg, oral, Daily PRN, constipation, Starting on 08/19/23 at 2157, PO route preferred. Constipation unrelieved by docusate sodium (COLACE) if ordered. If results needed within 2 hours give rectal suppository if ordered. Swallow whole. Do NOT crush, chew, or split tablet. 1404 ([facility] Hold - Provider: Transfer Provider, Automatic - Reason: Patient not available)1604 ([facility] Unhold - Provider: Transfer Provider, Automatic) bisacodyL suppository 10 mg (DULCOLAX) 10 mg, rectal, Daily PRN, constipation, Starting on 08/19/23 at 2157, PO route preferred. Constipation unrelieved by docusate sodium (COLACE) if ordered. If results needed within 2 hours - give rectal suppository. 1404 ([facility] Hold - Provider: Transfer Provider, Automatic - Reason: Patient not available)1604 ([facility] Unhold - Provider: Transfer Provider, Automatic) calcium carbonate chewable tablet 400 mg of calcium (TUMS) 400 mg of calcium, oral, Every 2 hour PRN, indigestion, Not to exceed 12 tablets in 24 hours, Starting on 08/19/23 at 2157, Doses listed are in mg of elemental calcium. Take with food. 500 mg calcium carbonate contains 200 mg of elemental calcium. 1404 ([facility] Hold - Provider: Transfer Provider, Automatic - Reason: Patient not available)1604 ([facility] Unhold - Provider: Transfer Provider, [...] 8 breaths/minute. 1456 (Given - Provider: Yadira Cih R.N.) sodium chloride 0.9 % injection 10 mL 10 mL, intravenous, As needed, line care, Starting on Sun08/19/23 at 1520, Peripheral Intravenous Catheter and Rapid Infusion Catheter, prior to blood sampling, post blood transfusion or post blood sampling 1404 ([facility] Hold - Provider: Transfer Provider, Automatic - Reason: Patient not available)1604 ([facility] Unhold - Provider: Transfer Provider, Automatic) sodium chloride 0.9 % injection 10 mL 10 mL, intravenous, As needed, line care, Starting on 08/19/23 at 2154, Peripheral Intravenous Catheter and Rapid Infusion Catheter, prior to blood sampling, post blood transfusion or post blood sampling 1404 ([facility] Hold - Provider: Transfer Provider, Automatic - Reason: Patient not available)1604 ([facility] Unhold - Provider: Transfer Provider, Automatic) sodium chloride 0.9 % injection 3 mL 3 mL, intravenous, As needed, line care, Starting on 08/19/23 at 1520, Prior to and following infusion and between multiple consecutive infusions: sodium chloride 0.9 % injection 1404 ([facility] Hold - Provider: Transfer Provider, Automatic - Reason: Patient not available)1604 ([facility] Unhold - Provider: Transfer Provider, Automatic) sodium chloride 0.9 % injection 3 mL 3 mL, intravenous, As needed, line care, Starting on 08/19/23 at 2154, Prior to and following infusion and between multiple consecutive infusions: sodium chloride 0.9 % injection 1404 ([facility] Hold - Provider: Transfer Provider, Automatic - Reason: Patient not available)1604 ([facility] Unhold - Provider: Transfer Provider, Automatic) documented in this encounter Additional Health Concerns Assessment Noted Time PHQ-9 Depression Total Score: 0 08/20/20 23 12:00 PM CDT documented as of this encounter Care Teams 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
--- OUTSIDE RECORDS SUMMARY | 2023-12-30 07:30 | XMS_ITS | Encounter Summary ---
Author Name Unknown Organization [facility] Address [address] [place] [address] Care Team Providers Care Farm Appraiser Name Role Phone Elsewhere, Pcp Primary Care Provider Unavailabl e Reason for Visit * Reason Onset Date Comments Pre-visit Testing Orders 08/20/2023 Encounter Details Date Type Department Care Team (Latest Contact Info) Description 08/20/2023 Clinical Communication Department of Cardiovascular Medicine in [place], [place] [address] [place] [address] Billy Segal APRN, C.N.P., D.N.P. 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 [address] [place] [address] documented as of this encounter Visit Diagnoses Diagnosis Stenosis Aortic Valve Acquired- Primary documented in this encounter Additional Health Concerns Assessment Noted Time PHQ-9 Depression Total Score: 0 08/20/20 23 12:00 PM CDT documented as of this encounter Care Teams Farm Appraiser Relationship Specialty Start Date End Date Elsewhere, Pcp PCP - General Internal Medicine 08/19/23 09/27/23 documented as of this encounter
--- OUTSIDE RECORDS SUMMARY | 2023-12-30 07:30 | XMS_ITS | Encounter Summary ---
Author Name Unknown Organization [facility] Address [address] [place] [address] Care Team Providers Care Steerer Name Role Phone Unavailable Primary Care Provider Unavailabl e Reason for Referral * Outpatient (Routine) - Closed Specialty Diagnoses / Procedures Referred By Sebas gimenez Referred To Contact Diagnoses Stenosis Aortic Valve Acquired Procedures Echo Transthoracic (TTE) Cresencio Medina M.B.B.S. [id number] [address] [facility] Referral ID Status Reason Start Date Expiration Date Visits Re quested Visits Authorized [id number] Closed 08/14/2023 08/13/2024 1 1 Reason for Visit * Auth/Cert (Routine) Specialty Diagnoses / Procedures Referred By Sebas gimenez Referred To Contact Diagnoses Stenosis Mitral And Aortic Stenosis Pain Chest Procedures ER Referral ID Status Reason Start Date Expiration Date Visits Re quested Visits Authorized [id number] 1 1 Encounter Details Date Type Department Care Team (Latest Contact Info) Description 08/17/2023 2:53 PM CDT - 08/17/2023 11:59 PM CDT Hospital Encounter Department of Cardiovascular Diseases in [place], [place] [address] [place] [address] Cresencio Medina, M.B.B.S. 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 [address] [place] [address] documented as of this encounter Procedures Procedure [...] 4:33 PM CDT There are no previous [facility] echocardiograms available for comparison. LEFT VENTRICLE:Normal left [...] valve regurgitation. Findings There are no previous [facility] echocardiograms available forcomparison. LEFT VENTRICLE:Normal left ventricular chamber size. Abnormal leftventricular geometry with concentric remodeling (increased wall thicknessto cavity ratio). Calculated 2-D linear left ventricular ejection %. No regional wall motion abnormalities. Grade 1/3 [...] report, see the Order-Level Documents. Cresencio Courtney ECHO PROCEDUR ES documented in this encounter Visit Diagnoses Diagnosis Stenosis Aortic Valve Acquired documented in this encounter
--- OUTSIDE RECORDS SUMMARY | 2023-12-30 07:30 | XMS_ITS | Clinical Summary ---
Author Name Unknown Organization [facility] s & [email or web address] [facility] Address [place], [place] [address] Care Team Providers Care Tool Crib Manager Name Role Phone Kylah Crum Staceymodesta [facility] Primary Care Provider Medications No known medications Encounters Date Type Department Care Team Description 12/28/2023 11:14 AM BUS GREASER - 12/28/2023 11:59 PM BUS GREASER Hospital Encounter [address] [address] Yadira Ashton MD 12/28/2023 Travel 12/21/2023 11:10 AM BUS GREASER - 12/21/2023 11:59 PM BUS GREASER Hospital Encounter [address] [address] Yadira Ashton MD 12/21/2023 Travel 12/19/2023 11:16 AM BUS GREASER - 12/19/2023 11:59 PM BUS GREASER Hospital Encounter [address] [address] Yadira Ashton MD 12/19/2023 Travel 12/17/2023 11:23 AM BUS GREASER - 12/17/2023 11:59 PM BUS GREASER Hospital Encounter [address] [address] Yadira Ashton MD 12/17/2023 Travel 12/14/2023 11:14 AM BUS GREASER - 12/14/2023 11:59 PM BUS GREASER Hospital Encounter [facility] [address] [facility] [place] [address] Yadira Ashton MD 12/14/2023 Travel 12/12/2023 10:43 AM BUS GREASER - 12/12/2023 11:59 PM BUS GREASER Hospital Encounter [facility] [address] [place] [address] Yadira Ashton MD 12/12/2023 Travel 12/10/2023 11:20 AM BUS GREASER - 12/10/2023 11:59 PM BUS GREASER Hospital Encounter [facility] [address] [facility] [place] [address] Yadira Ashton MD 12/10/2023 Travel 12/07/2023 11:18 AM BUS GREASER - 12/07/2023 11:59 PM BUS GREASER Hospital Encounter [facility] [address] [place] [place] [address] Yadira Ashton MD 12/07/2023 Travel 12/05/2023 11:24 AM BUS GREASER - 12/05/2023 11:59 PM BUS GREASER Hospital Encounter [facility] [address] [place] [address] Yadira Ashton MD 12/05/2023 Travel 12/03/2023 11:24 AM BUS GREASER - 12/03/2023 11:59 PM BUS GREASER Hospital Encounter [facility] [address] [place] [address] Yadira Ashton MD 12/03/2023 Travel 11/30/2023 11:19 AM BUS GREASER - 11/30/2023 11:59 PM BUS GREASER Hospital Encounter [facility] [address] [place] [address] Yadira Ashton MD 11/30/2023 Travel 11/28/2023 10:07 AM BUS GREASER - 11/28/2023 11:59 PM BUS GREASER Hospital Encounter [facility] [address] [place] [address] Yadira Ashton MD 11/28/2023 Travel 11/23/2023 11:30 AM BUS GREASER - 11/23/2023 11:59 PM BUS GREASER Hospital Encounter [facility] [address] [place] [address] Yadira Ashton MD 11/23/2023 Travel 11/21/2023 11:26 AM BUS GREASER - 11/21/2023 11:59 PM BUS GREASER Hospital Encounter [facility] [address] [place] [address] Yadira Ashton MD 11/21/2023 Travel 11/14/2023 Lab Requisition [facility] [phone] Jossie Lee MD 11/09/2023 4:00 PM BUS GREASER Orders Only [facility] at [address] [address] 3 scans: (3-Ord) ECHO TTE COMPLETE WO CONTRAST ([id number]) 11/07/2023 11:25 AM BUS GREASER - 11/07/2023 11:59 PM BUS GREASER Hospital Encounter [facility] [address] [place] [address] Yadira Ashton MD 11/07/2023 Travel 11/02/2023 11:30 AM BUS GREASER - 11/02/2023 11:59 PM BUS GREASER Hospital Encounter [facility] [address] [place] [address] Yadira Ashton MD 11/02/2023 Travel 10/29/2023 11:20 AM BUS GREASER - 10/29/2023 11:59 PM BUS GREASER Hospital Encounter [facility] [address] [place] [address] Yadira Ashton MD 10/29/2023 Travel 10/26/2023 11:30 AM BUS GREASER - 10/26/2023 11:59 PM BUS GREASER Hospital Encounter [facility] [address] [place] [address] Yadira Ashton MD 10/26/2023 Travel 10/24/2023 11:30 AM BUS GREASER - 10/24/2023 11:59 PM BUS GREASER Hospital Encounter [facility] [address] [place] [address] Yadira Ashton MD 10/24/2023 Travel 10/22/2023 11:30 AM BUS GREASER - 10/22/2023 11:59 PM BUS GREASER Hospital Encounter [facility] [address] [place] [address] Yadira Ashton MD 10/22/2023 Travel 10/19/2023 11:25 AM BUS GREASER - 10/19/2023 11:59 PM BUS GREASER Hospital Encounter [facility] [address] [place] [address] Yadira Ashton MD 10/19/2023 Travel 10/18/2023 Lab Requisition [facility] [phone] Rowena Reddy MD 10/17/2023 11:27 AM BUS GREASER - 10/17/2023 11:59 PM BUS GREASER Hospital Encounter [facility] [address] [place] [address] Yadira Ashton MD 10/17/2023 Travel 10/12/2023 11:09 AM BUS GREASER - 10/12/2023 11:59 PM BUS GREASER Hospital Encounter [facility] [address] [facility] [place] [address] Yadira Ashton MD 10/12/2023 Travel 10/10/2023 11:30 AM BUS GREASER - 10/10/2023 11:59 PM BUS GREASER Hospital Encounter [facility] [address] [place] [address] Yadira Ashton MD 10/10/2023 Travel 10/08/2023 11:30 AM BUS GREASER - 10/08/2023 11:59 PM BUS GREASER Hospital Encounter [facility] [address] [place] [place] [address] Yadira Ashton MD 10/08/2023 Travel 10/03/2023 3:07 PM BUS GREASER - 10/03/2023 6:12 PM BUS GREASER Emergency [facility] [address] [facility] [place] [address] Ankita Torres MD Weakness (Primary Dx) Discharge Disposition: Home Self Care 10/03/2023 3:00 PM BUS GREASER Office [facility] [address] [place] [place] [address] Batsheva Perez NP Sob 10/03/2023 1:30 PM BUS GREASER - 10/03/2023 3:06 PM BUS GREASER Hospital Encounter [facility] [address] [place] [place] [address] 10/03/2023 Travel from Last 3 Months Social History Tobacco Use Types Packs/Day Years Used Date Smoking Tobacco: Never Assessed Sex and Gender Information Value Date Recorded Sex Assigned at Not on file Gender Identity Not on file Sexual Orientation Not on file Obstetrics History Last Filed Vital Signs Vital Sign Reading Time Taken Comments Blood Pressure 107/69 10/03/2023 4:23 PM BUS GREASER Pulse 84 10/03/2023 4:23 PM BUS GREASER Temperature 36.8 ??C (98.2 ??F) 10/03/2023 3:16 PM CS T Respiratory Rate 20 10/03/2023 3:16 PM BUS GREASER Oxygen Saturation 98% 10/03/2023 4:23 PM BUS GREASER Inhaled Oxygen Concentration - - Weight 90.7 kg (200 lb) 10/03/2023 3:08 PM BUS GREASER Height 172.7 cm (5' 8) 10/03/2023 3:08 PM BUS GREASER Body Mass Index 30.41 10/03/2023 3:08 PM BUS GREASER Plan of Treatment Upcoming Encounters Date Type Department Care Team (Late st Contact Info) Description 12/31/2023 11:30 AM BUS GREASER Appointment [facility] [address] [place] [address] 01/02/2024 11:30 AM BUS GREASER Appointment [facility] 200 [facility] [place] [address] 01/04/2024 11:30 AM BUS GREASER Appointment [facility] 200 [facility] [place] [address] 01/07/2024 11:30 AM BUS GREASER Appointment [facility] [address] [facility] [place] [address] 01/09/2024 11:30 AM BUS GREASER Appointment [facility] 200 [place] [address] 01/11/2024 11:30 AM BUS GREASER Appointment [facility] 200 [place] [address] 01/14/2024 11:30 AM BUS GREASER Appointment [facility] [address] [facility] [place] [address] 01/16/2024 11:30 AM BUS GREASER Appointment [facility] 200 [place] [address] 01/18/2024 11:30 AM BUS GREASER Appointment [facility] [address] [facility] [place] [address] 01/21/2024 1:30 PM CDT Appointment [facility] [address] [facility] [place] [address] Health Maintenance Due Date Last Done Comments [...] Priority Date/Time Associated Diagnosis Comments SCAN-CARDIAC REHABILITATION 12/28/2023 11:22 AM BUS GREASER SCAN-CARDIAC REHABILITATION 12/21/2023 11:21 AM BUS GREASER SCAN-CARDIAC REHABILITATION 12/19/2023 11:25 AM BUS GREASER SCAN-CARDIAC REHABILITATION 12/17/2023 11:27 AM BUS GREASER SCAN-CARDIAC REHABILITATION 12/14/2023 11:23 AM BUS GREASER SCAN-CARDIAC REHABILITATION 12/12/2023 11:09 AM BUS GREASER SCAN-CARDIAC REHABILITATION 12/10/2023 11:25 AM BUS GREASER SCAN-CARDIAC REHABILITATION 12/07/2023 11:25 AM BUS GREASER SCAN-CARDIAC REHABILITATION 12/05/2023 11:28 AM BUS GREASER SCAN-CARDIAC REHABILITATION 12/03/2023 11:29 AM BUS GREASER SCAN-CARDIAC REHABILITATION 11/30/2023 11:23 AM BUS GREASER SCAN-CARDIAC REHABILITATION 11/28/2023 11:12 AM BUS GREASER SCAN-CARDIAC REHABILITATION 11/23/2023 11:41 AM BUS GREASER SCAN-CARDIAC REHABILITATION 11/21/2023 11:34 AM BUS GREASER LAB TRACKING EVENT Routine 11/13/2023 2: 08 PM BUS GREASER PATH NON ETCHER PRINTED CIRCUIT BOARDS CYTOLOGY Routine 11/13/2023 2:08 PM BUS GREASER ECHO TTE COMPLETE WO CONTRAST Routine 11/09/2023 5:15 PM BUS GREASER Fluid retention GALARZA (dyspnea on exertion) GLUCOSE METER Routine 11/07/2023 11:31 AM BUS GREASER SCAN-CARDIAC REHABILITATION 11/07/2023 11:29 AM BUS GREASER GLUCOSE METER Routine 11/02/2023 12:14 PM BUS GREASER SCAN-CARDIAC REHABILITATION 11/02/2023 11:39 AM BUS GREASER GLUCOSE METER Routine 11/02/2023 11:38 AM BUS GREASER GLUCOSE METER Routine 10/29/2023 12:25 PM BUS GREASER SCAN-CARDIAC REHABILITATION 10/29/2023 11:25 AM BUS GREASER GLUCOSE METER Routine 10/29/2023 11:24 AM BUS GREASER SCAN-CARDIAC REHABILITATION 10/26/2023 11:45 AM BUS GREASER SCAN-CARDIAC REHABILITATION 10/24/2023 11:39 AM BUS GREASER SCAN-CARDIAC REHABILITATION 10/24/2023 11:39 AM BUS GREASER SCAN-CARDIAC REHABILITATION 10/22/2023 11:43 AM BUS GREASER SCAN-CARDIAC REHABILITATION 10/19/2023 11:30 AM BUS GREASER PERIPHERAL BLD MORPHOLOGY Routine 10/18/2023 3:24 PM BUS GREASER LAB TRACKING EVENT Routine 10/18/2023 2: 50 PM BUS GREASER GLUCOSE METER Routine 10/17/2023 12:19 PM BUS GREASER GLUCOSE METER Routine 10/17/2023 11:37 AM BUS GREASER SCAN-CARDIAC REHABILITATION 10/17/2023 11:33 AM BUS GREASER GLUCOSE METER Routine 10/12/2023 12:21 PM BUS GREASER SCAN-CARDIAC REHABILITATION 10/12/2023 11:21 AM BUS GREASER GLUCOSE METER Routine 10/12/2023 11:20 AM BUS GREASER SCAN-CARDIAC REHABILITATION 10/10/2023 11:36 AM BUS GREASER SCAN-CARDIAC REHABILITATION 10/08/2023 11:43 AM BUS GREASER URINE CULTURE STAT 10/03/2023 6:00 PM BUS GREASER UA W/ SEDIMENT EXAM REFLEXED PER CRITERIA Today 10/03/2023 6:00 PM BUS GREASER BLOOD CULTURE STAT 10/03/2023 5:41 PM BUS GREASER TROPONIN T (HS) ONE TIME Timed 10/03/2023 5:41 PM BUS GREASER BLOOD CULTURE STAT 10/03/2023 5:35 PM BUS GREASER XR CHEST 1 VIEW PORTABLE STAT 10/03/2023 4:29 PM BUS GREASER COVID-19 MOLECULAR STAT 10/03/2023 4: 15 PM BUS GREASER INFLUENZA A/B PCR STAT 10/03/2023 4:1 5 PM BUS GREASER CBC WITH AUTO DIFFERENTIAL STAT 10/03/2023 4:00 PM BUS GREASER PROTIME-INR STAT 10/03/2023 4:00 PM BUS GREASER TROPONIN T (HS) ACUTE W/2HR REFLEX STAT 10/03/2023 4:00 PM BUS GREASER PRO-BNP STAT 10/03/2023 4:00 PM BUS GREASER COMP METABOLIC PANEL STAT 10/03/2023 4:00 PM BUS GREASER CBC WITH AUTO DIFFERENTIAL STAT 10/03/2023 4:00 PM BUS GREASER EKG 12 LEAD STAT 10/03/2023 3:46 PM BUS GREASER GLUCOSE METER Routine 10/03/2023 2:36 PM BUS GREASER SCAN-CARDIAC REHABILITATION 10/03/2023 2:31 PM BUS GREASER from Last 3 Months Results * SCAN-CARDIAC REHABILITATION (12/28/2023 11:22 AM BUS GREASER) Only the most recent of27 resultswithin the time period is included. Scanner OTHER * LAB TRACKING EVENT (11/13/2023 2:08 PM BUS GREASER) Only the most recent of2 resultswithin the time period is included. Other (Other) Client Collect / Unknown 11/13/2023 2:08 PM BUS GREASER 11/14/2023 8:59 PM BUS GREASER Jossie Lee MD LAB BILL ONLY Performing Organization Address City/State/[facility] Co de Phone Number [facility] [address] [place] [address], * PATH NON ETCHER PRINTED CIRCUIT BOARDS CYTOLOGY (11/13/2023 2:08 PM BUS GREASER) Case Report Medical Cytology Report ? Case: [id number] ? Authorizing Provider: ??Jossie Lee MD ?Collected: ? 11/13/2023 1408 ? Ordering Location: ? [facility] ?Received: ?11/15/2023 0746 ? Pathologist: ? Bere Garza MD ? Specimen: ?Pleural Fluid ? 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 11/16/2023 9:11 AM [facility] Gross Description A) SOURCE: [...] more than 72 hours. 11/16/2023 9:11 AM [facility] Microscopic Description Specimen adequacy: Adequate for interpretation. All slides were reviewed. The microscopic appearance substantiates the diagnosis. 11/16/2023 9:11 AM BUS GREASER [facility] Additional Information Cytology is screened at [facility], Central Laboratory - [address] [place] [address] and [facility] - [address], [place] [address] and [facility] - [address] [place] [address] Interpreted at [facility], Central Laboratory - [address], [place] [address] 11/16/2023 9:11 AM BUS GREASER [facility] Other PLEURAL FLUID SPECIMEN / Unknown 11/13/2023 2:08 PM BUS GREASER 11/15/2023 7:46 AM BUS GREASER Jossie Lee MD PATHOLOGY/CYTOLOGY [facility] [address] [place] [address], [place] * ECHO TTE COMPLETE WO CONTRAST (11/09/2023 5:15 PM BUS GREASER) AORTIC VALVE MEAN PG 4 mmHg EJECTION FRACTION 63 % LVEDD 3.8 cm EJECTION FRACTION 60 - 65% Anatomical Region Laterality Modality Ultrasound 11/09/2023 3:40 PM BUS GREASER Narrative 11/11/2023 7:58 AM BUS GREASER ECHOCARDIOGRAM MIRIAN DURAN ?Accession#: ?? [id number] : ?1950 73 years Study Date: ?? 11/09/2023 3:40:14 PM Gender: M ? BP: ? 130/88 mmHg Height: 175.00 cm ? BSA: ?2.07 m? ? ? Weight: 91.00 kg ?Tech: ? MJS ?Referring MD: ELDON GARCIA Site: ? [facility] Reading Location: [facility] Patient Location: Inpatient. Procedure: 2D, Color [...] . This study was interpreted by an [facility] accredited facility. CC: HIM (med records) [facility], Med/Surg - IP [facility]. ??Final ?? Procedure Note Home Baeza MD - 11/11/2023 ECHOCARDIOGRAM MIRIAN DURAN : 1950 73 years Study Date: 11/09/2023 3:40:14 PM Gender: M BP: 130/88 mmHg Height: 175.00 cm BSA: 2.07 m? ? ? Weight: 91.00 kg Tech: Yolanda Referring MD: ELDON GARCIA Site: [facility] Reading Location: [facility] Patient Location: Inpatient. Procedure: 2D, Color Doppler [...] . This study was interpreted by an [facility] accredited facility. CC: HIM (med records) [facility], Med/Surg - IP [facility]. Final Eldon VAZQUEZ ECHO ORD * (ABNORMAL) GLUCOSE METER (11/07/2023 11:31 AM BUS GREASER) Only the most recent of10 resultswithin the time period is included. GLUCOSE METER 225(H) 65 - 100 mg/dL 11/07/2023 11:36 AM BUS GREASER [facility] Blood BLOOD SPECIMEN / Unknown 11/07/2023 11:31 AM BUS GREASER 11/07/2023 11:36 AM BUS GREASER Yadira Ashton MD CHEMISTRY [facility] [address] [place] [address] * PERIPHERAL BLD MORPHOLOGY (10/18/2023 3:24 PM BUS GREASER) Case Report Special Hematology Report ? Case: [id number] ? Authorizing Provider: ??Rowena Reddy MD ?Collected: ? 10/18/2023 1524 ? Ordering Location: ? [facility] ?Received: ?10/19/2023 1022 ? Pathologist: ? Dl Silva, ? MD ? Specimen: ?Peripheral Blood ? 10/21/2023 8:27 AM [facility] Final Diagnosis PERIPHERAL BLOOD: 1. Mild normocytic anemia with acanthocytes (may be associated with renal and/or liver insufficiency) 2. See comment 10/21/2023 8:27 AM [facility] Comment The features of the anemia are nonspecific. The differential includes iron deficiency, anemia of chronic disease, anemia of renal insufficiency (eGFR = 32), anatomic blood loss and medication effect. There is no morphologic evidence of hemolysis. Clinical correlation is recommended. This case was also reviewed by Alysa Al MT, MS (ASCP). 10/21/2023 8:27 AM BUS GREASER [facility] Clinical Information The patient is a 73-year-old male. As of 10/03/23 16:00 CREATININE: 2.16 (H) eGFR: ? 32 (L) 10/21/2023 8:27 AM BUS GREASER [facility] CBC and Differential HEMATOLOGY PARAMETERS Tested at: ??[facility] - ? RESULTS ??EXPECTED VALUES WBC: ? 8.9 ?4.5-39j6547/cu mm ? RBC: ? 3.54 ? 4.30-5.90 mil/cumm ??DECREASED HGB: ? 10.3 ? 13.5-17.5 gm/di ? DECREASED HCT: ? 33.7 ? 37-53% ?DECREASED MCV: ? 95.0 ? 80-100 fl ? NORMOCYTIC MCH: ? 29.0 ? 26-34 pg ? MCHC: ?31.0 ? 32-36 gm/dl ? HYPOCHROMIC RDW: ? 13.8 ? 11.5-15.5% ? PLT: ? 299 ?140-395n3741/u L ? Differential ?Tested at: ??[facility] - ?Absolute (%) ?Expected (%) ?(x10*9/L) ? (x10*9/L) Neutrophils: ?6.9 (77.2) ?1.7-7.0 (42-72%) ? Lymphocytes: ?1 (11.2) ?0.9-2.9 (20-44%) ?? Monocytes: ?0.82 (9.2) ? <0.9 (0-11%) ? Eosinophils: ?0.16 (1.8) ? <0.5 (0-2%) ? Basophils: ?0.02 (.2) ?<0.3 (<3.0%) ? Imm Grans: ?0.03 (.3) ?<0.3 (0-3%) ? (Metas, Myelos,Pros) 10/21/2023 8:27 AM [facility] Microscopic Description The final diagnosis is based on microscopic examination of an appropriately stained blood smear. 10/21/2023 8:27 AM [facility] Additional Information Interpreted at [facility] - [address] [facility] [address] [address] 10/21/2023 8:27 AM [facility] Blood (Peripheral Blood) 10/18/2023 3:24 PM BUS GREASER 10/19/2023 10:22 AM BUS GREASER Rowena Reddy MD HEMATOLOGY [facility] [address] [place] [address], * URINE CULTURE (10/03/2023 6:00 PM BUS GREASER) CULTURE No growth (<1,000 CFU/mL) 10/04/2023 3:02 PM BUS GREASER [facility] Urine URINE SPECIMEN / Unknown Non-Blood / Unknown 10/03/2023 6:00 PM BUS GREASER 10/03/2023 6:00 PM BUS GREASER Ankita Torres MD MICROBIOL OGY [facility] [address] [place] [address], [place] * UA W/ SEDIMENT EXAM REFLEXED PER CRITERIA (10/03/2023 6:00 PM BUS GREASER) COLOR Yellow Yellow Color 10/03/2023 6:05 PM [facility] CLARITY Clear Clear Clarity 10/03/2023 6:05 PM [facility] SPECIFIC GRAVITY,URINE 1.020 1.010, 1.015, 1.020, 1.025 10/03/2023 6:05 PM [facility] PH,URINE 5.5 6.0, 7.0, 8.0, 5.5, 6.5, 7.5, 8.5 10/03/2023 6:05 PM [facility] UROBILINOGEN, QUALITATIVE Normal Normal EU/dl 10/03/2023 6:05 PM [facility] PROTEIN, URINE Negative Negative mg/dL 10/03/2023 6:05 PM [facility] GLUCOSE, URINE Negative Negative mg/dL 10/03/2023 6:05 PM [facility] KETONES,URINE Negative Negative mg/dL 10/03/2023 6:05 PM [facility] BILIRUBIN,URI NE Negative Negative 10/03/2023 6:05 PM [facility] OCCULT BLOOD,URINE Negative Negative 10/03/2023 6:05 PM [facility] NITRITE Negative Negative 10/03/2023 6:05 PM [facility] LEUKOCYTE ESTERASE Negative Negative 10/03/2023 6:05 PM [facility] Urine URINE SPECIMEN / Unknown Non-Blood / Unknown 10/03/2023 6:00 PM BUS GREASER 10/03/2023 6:00 PM BUS GREASER Ankita Torres MD URINE [facility] [address] [place] [address] * (ABNORMAL) TROPONIN T (HS) ONE TIME (10/03/2023 5:41 PM BUS GREASER) TROPONIN T HS 225(H) 6-15 ng/L ng/L 10/03/2023 6:02 PM BUS GREASER [facility] Blood BLOOD SPECIMEN / Unknown Butterfly / Unknown 10/03/2023 5:41 PM BUS GREASER 10/03/2023 5:44 PM BUS GREASER Ankita Torres MD CHEMISTRY [facility] [address] [place] [id number] * BLOOD CULTURE (10/03/2023 5:41 PM BUS GREASER) Only the most recent of2 resultswithin the time period is included. Pathologist [facility] CULTURE No Growth. 10/09/2023 5:13 AM BUS GREASER [facility] Blood BLOOD SPECIMEN / Unknown Butterfly / Unknown 10/03/2023 5:41 PM BUS GREASER 10/03/2023 5:45 PM BUS GREASER Narrative [facility] - 10/09/2023 5:13 AM BUS GREASER Low volume blood culture received; possible false negative culture. Ankita Torres MD MICROBIOL OGY Performing Organization Address City/[facility]/ZIP Co de Phone Number [facility] [address] [place] [phone] * XR CHEST 1 VIEW PORTABLE (10/03/2023 4:29 PM BUS GREASER) Anatomical Region Laterality Modality HEART, THORAX, CHEST Digital Rad iography 10/03/2023 5:19 PM BUS GREASER Narrative 10/03/2023 5:19 PM BUS GREASER For Patients: ??As a result of the [...] 5:19:17 PM (Electronically Signed) Ankita Torres MD GENERAL I MAGING * COVID-19 MOLECULAR (10/03/2023 4:15 PM BUS GREASER) COVID 19 [place] MOLECULAR Not detected Not detected 10/03/2023 5:01 PM BUS GREASER [facility] TESTING LABORATORY [facility] 10/03/2023 5:01 PM BUS GREASER [facility] Comment:Specimen submitted t o [facility] for testing. Other SPECIMEN FROM NASOPHARYNGEAL STRUCTURE / Unknown Non-Blood / Unknown 10/03/2023 4:15 PM BUS GREASER 10/03/2023 4:23 PM BUS GREASER Narrative [facility] - 10/03/2023 5:01 PM BUS GREASER This test has been authorized by FDA [...] Torres MD MICROBIOL OGY Performing Organization Address City/[facility]/ZIP Co de Phone Number [facility] [address] [place] [phone] * INFLUENZA A/B PCR (10/03/2023 4:15 PM BUS GREASER) Pathologist [facility] INFLUENZA A PCR NOT Detected 10/03/2023 5:01 PM BUS GREASER [facility] INFLUENZA B PCR NOT Detected 10/03/2023 5:01 PM BUS GREASER [facility] Other SPECIMEN FROM NASOPHARYNGEAL STRUCTURE / Unknown Non-Blood / Unknown 10/03/2023 4:15 PM BUS GREASER 10/03/2023 4:23 PM BUS GREASER Ankita Torres MD MICROBIOL OGY Performing Organization Address [facility] Co de Phone Number [facility] [address] [place] [phone] * (ABNORMAL) TROPONIN T (HS) ACUTE W/2HR REFLEX (10/03/2023 4:00 PM BUS GREASER) TROPONIN T HS 244(H) 6-15 ng/L ng/L 10/03/2023 4:37 PM [facility] Blood BLOOD SPECIMEN / Unknown Butterfly / Unknown 10/03/2023 4:00 PM BUS GREASER 10/03/2023 4:02 PM BUS GREASER Narrative [facility] - 10/03/2023 4:37 PM BUS GREASER hs-cTnT (Elecsys Troponin T Gen 5) concentration [...] department patient population. Ankita Torres MD CHEMISTRY [facility] [address] [place], [place] [id number] * (ABNORMAL) CBC WITH AUTO DIFFERENTIAL (10/03/2023 4:00 PM BUS GREASER) [facility] WHITE BLOOD COUNT 11.5(H) 4.5 - 11.0 thou/cu mm 10/03/2023 4:09 PM BUS GREASER [facility] RED BLOOD COUNT 2.97(L) 4.30 - 5.90 mil/cu mm 10/03/2023 4:09 PM BUS GREASER [facility] HEMOGLOBIN 9.1(L) 13.5 - 17.5 g/dL 10/03/2023 4:09 PM [facility] HEMATOCRIT 29.0(L) 37.0 - 53.0 % 10/03/2023 4:09 PM [facility] MCV 98 80 - 100 fL 10/03/2023 4:09 PM [facility] MCH 30.6 26.0 - 34.0 pg 10/03/2023 4:09 PM [facility] MCHC 31.4(L) 32.0 - 36.0 g/dL 10/03/2023 4:09 PM [facility] RDW 14.4 11.5 - 15.5 % 10/03/2023 4:09 PM [facility] PLATELET COUNT 399 140 - 440 thou/cu mm 10/03/2023 4:09 PM [facility] MPV 9.4 6.5 - 11.0 fL 10/03/2023 4:09 PM [facility] % NEUT 82.4 % 10/03/2023 4:09 PM [facility] % LYMPH 7.3 % 10/03/2023 4:09 PM [facility] % MONO 9.4 % 10/03/2023 4:09 PM [facility] % EOS 0.6 % 10/03/2023 4:09 PM [facility] % BASO 0.3 % 10/03/2023 4:09 PM [facility] ABSOLUTE NEUTROPHILS 9.5(H) 1.7 - 7.0 thou/cu mm 10/03/2023 4:09 PM [facility] ABSOLUTE LYMPHOCYTES 0.8(L) 0.9 - 2.9 thou/cu mm 10/03/2023 4:09 PM [facility] ABSOLUTE MONOCYTES 1.1(H) <0.9 thou/cu mm 10/03/2023 4:09 PM [facility] ABSOLUTE EOSINOPHILS 0.1 <0.5 thou/cu mm 10/03/2023 4:09 PM [facility] ABSOLUTE BASOPHILS 0.0 <0.3 thou/cu mm 10/03/2023 4:09 PM [facility] Blood BLOOD SPECIMEN / Unknown Butterfly / Unknown 10/03/2023 4:00 PM BUS GREASER 10/03/2023 4:02 PM BUS GREASER Ankita Torres MD HEMATOLOG Y Performing Organization Address [facility]/ZIP Co de Phone Number [facility] [address] [place] [address] * (ABNORMAL) PROTIME-INR (10/03/2023 4:00 PM BUS GREASER) INR 1.9(H) <1.3 10/03/2023 4:09 PM [facility] GREASER [facility] PROTIME 20.5(H) 10.3 - 12.3 sec 10/03/2023 4:09 PM [facility] GREASER [facility] Blood BLOOD SPECIMEN / Unknown Butterfly / Unknown 10/03/2023 4:00 PM BUS GREASER 10/03/2023 4:02 PM BUS GREASER Narrative [facility] - 10/03/2023 4:09 PM BUS GREASER ?Therapeutic Range 2.0-3.0 for most anticoagulated patients [...] Torres MD HEMATOLOG Y Performing Organization Address City/[facility]/ZIP Co de Phone Number [facility] [address] [place] [address] * (ABNORMAL) PRO-BNP (10/03/2023 4:00 PM BUS GREASER) PRO-BNP 7,213(H) <125 pg/mL 10/03/2023 4:46 PM BUS GREASER [facility] Blood BLOOD SPECIMEN / Unknown Butterfly / Unknown 10/03/2023 4:00 PM BUS GREASER 10/03/2023 4:02 PM BUS GREASER Narrative [facility] - 10/03/2023 4:46 PM BUS GREASER The following cut-points have been suggested for [...] failure. ? Ankita Torres MD SEND OUTS [facility] [address] [place] [id number] * (ABNORMAL) COMP METABOLIC PANEL (10/03/2023 4:00 PM BUS GREASER) SODIUM 138 136 - 145 mmol/L 10/03/2023 4:37 PM [facility] POTASSIUM 5.0 3.5 - 5.1 mmol/L 10/03/2023 4:37 PM [facility] CHLORIDE 101 98 - 107 mmol/L 10/03/2023 4:37 PM [facility] CO2,TOTAL 27 22 - 29 mmol/L 10/03/2023 4:37 PM [facility] ANION GAP 10 5 - 18 10/03/2023 4:37 PM [facility] GLUCOSE 171(H) 70 - 99 mg/dL 10/03/2023 4:37 PM [facility] CALCIUM 9.0 8.8 - 10.2 mg/dL 10/03/2023 4:37 PM [facility] BUN 37(H) 8 - 23 mg/dL 10/03/2023 4:37 PM [facility] CREATININE 2.16(H) 0.70 - 1.20 mg/dL 10/03/2023 4:37 PM [facility] BUN/CREAT RATIO 17 10 - 20 4:37 PM [facility] eGFR 32(L) >90 mL/min/1.7 3m2 10/03/2023 4:37 PM [facility] Comment:As of 2022, eG FR is calculated by the CKD-EPI creatinine equation without race adjustment. ??eGFR can be influenced by muscle mass, exercise, and diet. ??The reported eGFR is an estimation only and is only applicable if the renal function is stable. ALBUMIN 3.3(L) 4.0 - 4.9 g/dL 10/03/2023 4:37 PM [facility] PROTEIN,TOTAL 6.4 6.0 - 8.0 g/dL 10/03/2023 4:37 PM [facility] BILIRUBIN,TOTAL 0.5 0.0 - 1.2 mg/dL 10/03/2023 4:37 PM [facility] ALK PHOSPHATASE 102 40 - 129 IU/L 10/03/2023 4:37 PM [facility] ALT (SGPT) 13 10 - 50 IU/L 10/03/2023 4:37 PM [facility] AST (SGOT) 16 10 - 50 IU/L 10/03/2023 4:37 PM [facility] Blood BLOOD SPECIMEN / Unknown Butterfly / Unknown 10/03/2023 4:00 PM BUS GREASER 10/03/2023 4:02 PM BUS GREASER Ankita Torres MD CHEMISTRY [facility] [address] [place] [address] * EKG 12 LEAD (10/03/2023 3:46 PM BUS GREASER) Interpretation Normal sinus rhythm Low voltage QRS Borderline ECG No previous ECGs available ??compaired to [place] 09/25/23 ??no change BEYOND NOW Ventricular Rate 77 BPM BEYOND NOW Atrial Rate 77 BPM BEYOND NOW P-R Interval 132 ms BEYOND NOW QRS Duration 86 ms BEYOND NOW QT 406 ms BEYOND NOW QTc 459 ms BEYOND NOW P [place] 31 degrees BEYOND NOW R [place] 44 degrees BEYOND NOW T [place] 53 degrees BEYOND NOW 10/03/2023 3:46 PM BUS GREASER 10/03/2023 6:19 PM BUS GREASER Ankita Torres MD EKG ORD Performing Organization Address City/[facility]/ZIP Co de Phone Number [place] NOW [place], [place] from Last 3 Months Care Teams Tool Crib Manager Relationship Specialty Start Date End Date Kylah Crum MBBS [address] [place] [address] [place] [address] PCP - General Family Practice 10/03/23
== END 2023-12-28 13:12 | disposition home or self-care (01) ==
LOC: NFLDREF 13:11
PROVIDERS: PCP Internal Medicine; Referring Provider Internal Medicine; Visit Provider Internal Medicine Nephrology
DX: N18.4 Chronic kidney disease, stage 4 (severe) (principal)
CPT/HCPCS: 80069; 82043; 82570; 82728; 83540; 83550; 87086

== ENCOUNTER 2024-01-18 10:47 | Outpatient (CLI) | payer MEDICARE, SELFPAY | END 2024-01-18 10:48 | disposition home or self-care (01) | LOC: NFLDREF 01-21 06:26 | PROVIDERS: PCP Internal Medicine; Referring Provider Internal Medicine; Visit Provider Internal Medicine | DX: Z51.81 Encounter for therapeutic drug level monitoring (principal); Z79.01 Long term (current) use of anticoagulants | CPT/HCPCS: 85610 ==

== ENCOUNTER 2024-01-25 13:00 | Outpatient (CLI) | payer MEDICARE, SELFPAY | END 2024-01-25 13:01 | disposition home or self-care (01) | LOC: NFLDREF 02-01 08:44 | PROVIDERS: PCP Internal Medicine; Referring Provider Internal Medicine | DX: I31.9 Disease of pericardium, unspecified (principal) | CPT/HCPCS: 82565; 84520; 85610; 86140 ==

== ENCOUNTER 2024-02-07 13:10 | Outpatient (REF) | payer MEDICARE, SELFPAY ==
[2024-02-07 13:43] LABS: Estimated Glomerular Filt Rate 35 ml/min
[2024-02-07 13:44] LABS: Blood Urea Nitrogen* 41 mg/dL (7-30)
[2024-02-07 13:51] LABS: C Reactive Protein* < 0.5 mg/dL (0.5-1.0)
== END 2024-02-07 13:11 | disposition home or self-care (01) ==
LOC: NPINS 13:10
PROVIDERS: PCP Internal Medicine
DX: I31.9 Disease of pericardium, unspecified (principal)
CPT/HCPCS: 82565; 84520; 86140

== ENCOUNTER 2024-03-20 17:20 | Outpatient (REF) | payer MEDICARE, SELFPAY ==
--- OUTSIDE RECORDS SUMMARY | 2024-03-20 17:26 | XMS_ITS ---
Author Name Unknown Organization [facility] Address [address] [place] [address] Care Team Providers Care Business Education Teacher Name Role Phone Unavailable Unavailable Unavailable Surgery Details Not on file Complications Check Surgery Details section. Procedure Estimated Blood Loss Check Surgery Details section. Procedure Findings Check Surgery Details section. Procedure Specimens Taken Check Surgery Details section.
--- OUTSIDE RECORDS SUMMARY | 2024-03-20 17:26 | XMS_ITS | Referral Summary ---
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 Primary Care Provider [phone] Source Comments Patient records contain information from all sites at [facility]. For routine questions regarding patient records, call [phone] during business hours, M-F 8:00 AM - 5:00 PM Central Time. Record requests for emergency care only can be directed to [phone] at any time.[facility] Encounters Date Type Department Care Team Description 03/18/2024 Refill Department of Cardiovascular Medicine in [place], [place] [address] [place] [address] Obinna Desai, P.A.-C. Med Refill 02/11/2024 Refill Department of Cardiovascular Medicine in [place], [place] [address] [place] [address] Gudelia Soto M.D. Med Refill 02/04/2024 10:49 AM CDT - 02/04/2024 11:59 PM CDT Hospital Encounter Department of Laboratory Medicine in [place], [place] [address] [place] [phone] Mare Arauz M.D., Ph.D. Chronic Kidney Disease (CKD), Stage 3b Glomerular Filtration Rate (GFR) 30 To 44 ([facility]) Discharge Disposition: Home or Self Care 02/01/2024 Orders Only Division of Nephrology and Hypertension in [place], [place] [address] [place] [address] Mare Arauz M.D., Ph.D. Chronic Kidney Disease (CKD), Stage 3b Glomerular Filtration Rate (GFR) 30 To 44 (HCC) (Primary Dx) 01/28/2024 Clinical Communication Department of Family Medicine, [facility], in [place], [place] [address] [place] [address] Kylah Crum M.D. Results ([facility]) 01/16/2024 10:22 AM NET DEVELOPER CONSULTANT - 01/16/2024 11:59 PM NET DEVELOPER CONSULTANT Hospital Encounter Department of Laboratory Medicine in [place], [place] [address] [facility] [place] [phone] Mare Arauz M.D., Ph.D. Hypertension And Chronic Kidney Disease Stage 4 (HCC); Pericardial Disease (HCC) Discharge Disposition: Home or Self Care 01/15/2024 Orders Only [facility] Kylah Crum M.D. Diabetes Mellitus Type 2 (HCC) 01/15/2024 Clinical Communication Department of Cardiovascular Medicine in [place], [place] [address] [place] [address] Eneida Loya, R.N. 01/01/2024 3:30 PM NET DEVELOPER CONSULTANT External Outreach Division of Nephrology and Hypertension in [place], [place] [address] [place] [address] Mare Arauz M.D., Ph.D. Hypertension And Chronic Kidney Disease Stage 4 (HCC) (Primary Dx); Anemia In Chronic Kidney Disease; Failure Renal Acute (Acute Kidney Injury) (HCC) 12/27/2023 Clinical Communication Department of Cardiovascular Medicine in [place], [place] [address] [place] [address] Eneida Loya, R.N. 12/26/2023 Clinical Communication Department of Cardiovascular Medicine in [place], [place] [address] [place] [phone] Eneida Loya, R.N. 12/26/2023 Clinical Communication Department of Cardiovascular Medicine in [place], [place] [address] [place] [address] Eneida Loya R.N. 12/25/2023 2:20 PM NET DEVELOPER CONSULTANT - 12/25/2023 11:59 PM NET DEVELOPER CONSULTANT Hospital Encounter Department of Radiology, [facility] in [place], [place] [address] [place] [phone] Gudelia Soto M.D. Pericarditis Constrictive (HCC) Discharge Disposition: Home or Self Care 12/24/2023 9:07 AM NET DEVELOPER CONSULTANT - 12/24/2023 10:14 AM NET DEVELOPER CONSULTANT [facility] [place] [place] [address] [place] [address] Gudelia Soto M.D. Stenosis Aortic Valve Acquired Discharge Disposition: Home or Self Care 12/24/2023 7:30 AM NET DEVELOPER CONSULTANT - 12/24/2023 9:06 AM NET DEVELOPER CONSULTANT Hospital Encounter Department of Cardiovascular Diseases in [place], [place] [address] [place] [address] Gudelia Soto M.D. Stenosis Aortic Valve Acquired Discharge Disposition: Home or Self Care 12/24/2023 10:15 AM NET DEVELOPER CONSULTANT - 12/24/2023 11:59 PM NET DEVELOPER CONSULTANT [facility] [place] [place] [address] [place] [address] Gudelia Soto M.D. Stenosis Aortic Valve Acquired Discharge Disposition: Home or Self Care 12/24/2023 2:00 PM NET DEVELOPER CONSULTANT Comprehensive Visit Department of Cardiovascular Medicine in [place], [place] [address] [place] [phone] Gudelia Soto M.D. Pericarditis Constrictive (HCC) (Primary Dx); Stenosis Aortic Valve Acquired; Atrial Fibrillation Paroxysmal (HCC); Coronary Artery Disease Without Angina Pectoris; Cardiac Surgery Status Post; Usp (Current) Anticoagulant Treatment; Bypass Coronary Artery Graft Status Post; Effusion Pleural; Diabetes Mellitus Type 2 (HCC); Benign Prostatic Hyperplasia Without Obstruction; Stroke Cerebrovascular Accident Personal History from Last 3 Months Allergies No known active allergies Medications Medication Sig Dispensed Refills Start Date End Date Status cholecalciferol 10 mcg (400 Unit) tablet Take 10 mcg by mouth daily. Active cyanocobalamin 2,000 mcg tablet Take 2,000 mcg by mouth daily. Active acetaminophen (TYLENOL) 500 mg tablet Take 1,000 mg by mouth every 6 (six) hours as needed for pain. Active aspirin 81 mg chewable tablet Chew 1 tablet (81 mg total) daily. 3 09/25/20 24 Active atorvastatin (LIPITOR) 80 mg tablet Take 1 tablet (80 mg total) by mouth at bedtime. 3 09/25/20 24 Active finasteride (PROSCAR) 5 mg tablet Take 1 tablet (5 mg total) by mouth daily. 3 Active rOPINIRole (REQUIP) 0.5 mg tablet Take 1 tablet (0.5 mg total) by mouth 3 (three) times a day. 3 Active tamsulosin (FLOMAX) 0.4 mg 24 hr capsule Take 1 capsule (0.4 mg total) by mouth at bedtime. 3 Active metoprolol tartrate (LOPRESSOR) 25 mg tablet Take 1 tablet (25 mg total) by mouth 2 (two) times a day. 60 tablet 3 Active glipiZIDE (GLUCOTROL XL) 2.5 mg 24 hr tablet Take 1 tablet (2.5 mg total) by mouth daily with breakfast. 30 tablet 3 Active warfarin (JANTOVEN) 1 mg tabletIndicatio ns:Prosthesis Aortic Valve Take per Anticoagulation Clinic 180 tablet 3 3 Active torsemide (DEMADEX) 20 mg tablet Take 1 tablet (20 mg total) by mouth daily. 4 Active metoprolol succinate (TOPROL-XL) 50 mg 24 hr tablet Take 1 tablet by mouth daily. 4 Active spironolactone (ALDACTONE) 25 mg tablet Take 1 tablet by mouth daily. 4 Active iron,carbonyl-v itamin C (VITRON-C) 65 mg iron- [address] tablet Take 1 tablet (65 mg of iron total) by mouth daily. Do not crush or chew. 90 tablet 3 4 12/31/19 25 Active colchicine (COLCRYS) 0.6 mg tablet Take 0.5 tablets (0.3 mg total) by mouth daily. 45 tablet 3 4 Active predniSONE (DELTASONE) 1 mg tablet Take 4 tablets (4 mg total) by mouth daily for 14 days, THEN 3 tablets (3 mg total) daily for 14 days, THEN 2 tablets (2 mg total) daily for 14 days, THEN 1 tablet (1 mg total) daily for 14 days. 140 tablet 4 05/13/20 24 Active predniSONE (DELTASONE) 5 mg tablet Take 1 tablet (5 mg total) by mouth daily. 14 tablet 4 Active predniSONE (DELTASONE) 5 mg tablet Take 1 tablet (5 mg total) by mouth daily for 14 days, THEN 1 tablet (5 mg total) daily for 14 days, THEN 1 tablet (5 mg total) daily for 14 days, THEN 1 tablet (5 mg total) daily for 14 days, THEN 1 tablet (5 mg total) daily for 14 days. To be taken in conjunction with 1 mg tablets. Take 8zyr12xcsn,5opb94ty ys,3wya15wqxd,6mgx1 4days,7jmz26lwgh,4m rt26ezfu,3cvn60bkeg ,8gxa65sixo,4wxf18e ays. 70 tablet 4 03/18/20 24 Discontinued predniSONE (DELTASONE) 1 mg tablet Take 4 tablets (4 mg total) by mouth daily for 14 days, THEN 3 tablets (3 mg total) daily for 14 days, THEN 2 tablets (2 mg total) daily for 14 days, THEN 1 tablet (1 mg total) daily for 14 days, THEN 4 tablets (4 mg total) daily for 14 days, THEN 3 tablets (3 mg total) daily for 14 days, THEN 2 tablets (2 mg total) daily for 14 days, THEN 1 tablet (1 mg total) daily for 14 days. To be taken in conjunction with 5mg tablets. Take 0fuc67lihi,9qeh82lc ys,6tgo59hlkv,6mgx1 4days,5mey66qpbm,4m xu96brah,4glw98vrjx ,1bhj80onpm,8bqt30y ays.. 280 tablet 4 03/18/20 24 Discontinued Active Problems Problem Noted Date Diagnosed Date Usp (Current) Anticoagulant Treatment 09/13 Bypass Coronary Artery Graft Status Post 11/17/2 023 Cardiac Surgery Status Post 09/24/2023 Effusion Pleural 09/24/2023 Device Cardiac Status Post 09/23/2023 Overview: Previously placed loop recorder Therapy Cv Rn Antiplatelet 09/22/2023 Coronary Arterial Bypass Graft Status [...] your living situation today? I have a [facility] place to live 08/29/2023 Sex and Gender Information Value Date Recorded Sex Assigned at Male 08/29/2023 11:06 AM CDT Gender Identity Male 08/29/2023 11:06 AM CDT Sexual Orientation Straight 08/29/2023 11 :06 AM CDT Last Filed Vital Signs Vital Sign Reading Time Taken Comments Blood Pressure 111/68 12/24/2023 1:40 PM NET DEVELOPER CONSULTANT Pulse 86 12/24/2023 1:40 PM NET DEVELOPER CONSULTANT Temperature 36.1 ??C (96.9 ??F) 10/01/2023 1 1:08 AM NET DEVELOPER CONSULTANT Respiratory Rate 20 10/01/2023 11:0 8 AM NET DEVELOPER CONSULTANT Oxygen Saturation 98% 10/01/2023 11: 08 AM NET DEVELOPER CONSULTANT Inhaled Oxygen Concentration - - Weight 85.2 kg (187 lb 13.3 oz) 12/25/2023 2:40 PM NET DEVELOPER CONSULTANT Height 169.5 cm (5' 6.73) 12/25/2023 2:40 PM CS T Body Mass Index 29.66 12/25/2023 2:40 PM NET DEVELOPER CONSULTANT Plan of Treatment Not on file Medical Devices Implanted Type Area [employer] Principal Device Identifier Shelf Expiration Date Model / Serial / Lot Vlv Aort Cnf [facility] 23 - [id number] - [id number] Implanted:Qty: 1 on 09/19/2023 by Sarah Miller M.D., M.P.H. at [facility] Cardiac Valve Prosthesis N/A: Aortic Valve Artivion (Prev. CryoLife) 2028 ONXACE-2 3 / [id number] / Description:MRI conditional up to 3T, normal mode, per operator weapon locating radar. [email or web address]-[email or web address] _[email or web address] AFK Clp Hrzn Ti 24 Clp Akhil - [id number] Implanted:Qty: 1 on 09/19/2023 by Sarah Miller M.D., M.P.H. at [facility] Hardware e.g. pins/screws/r ods N/A: Chest Teleflex Riskclick [id number] 04/29/2028 [id number] / / [id number] Clp Hrzn Ti 6 Clp Md Bainu - [id number] Implanted:Qty: 1 on 09/19/2023 by Sarah Miller M.D., M.P.H. at [facility] Hardware e.g. pins/screws/r ods N/A: Chest Teleflex LLC [id number] / / Clp Hrzn Ti 24 Clp Sm Red - [id number] Implanted:Qty: 1 on 09/19/2023 by Sarah Miller M.D., M.P.H. at [facility] Hardware e.g. pins/screws/r ods N/A: Chest Teleflex LLC [id number] / / Clp Hrzn Ti 24 Clp Sm Red - [id number] Implanted:Qty: 1 on 09/19/2023 by Sarah Miller M.D., M.P.H. at [facility] Hardware e.g. pins/screws/r ods N/A: Chest [employer]flex [employer] [id number] / / Henderson Surg Tfln 1x6 - [id number] Implanted:Qty: 1 on 09/19/2023 by Sarah Miller M.D., M.P.H. at [facility] Hardware e.g. pins/screws/r ods N/A: Chest CX [id number] / / Medtronic Linq-05/05/2019 Implanted:04/13 by Chet Badillo M.D., Ph.D. (Quantity not on file) Implantable Loop Recorder Chest Medtronic [id number] / [id number] / Description:MR Conditional 1 .5T and 3T - First level operating mode. - Jayro Abernathy 12/25/2023 Procedures Procedure Name Priority Date/Time Associated Diagnosis Comments BASIC METABOLIC PANEL, S/P Routine 02/04/2024 10:56 AM CDT Chronic Kidney Disease (CKD), Stage 3b Glomerular Filtration Rate (GFR) 30 To 44 (HCC) C-REACTIVE PROTEIN (CRP), S/P Routine 01/16/2024 10:30 AM NET DEVELOPER CONSULTANT Pericardial Disease (HCC) SEDIMENTATION RATE, B Routine 01/16/2024 10:30 AM NET DEVELOPER CONSULTANT Pericardial Disease (HCC) RENAL FUNCTION PANEL, S Routine 01/16/2024 10:30 AM NET DEVELOPER CONSULTANT Hypertension And Chronic Kidney Disease Stage 4 (HCC) MR CARDIAC WITHOUT AND WITH IV CONTRAST RAD - Routine (most inpatients and all outpatients) 12/25/2023 4:05 PM NET DEVELOPER CONSULTANT Pericarditis Constrictive (HCC) DX CHEST AP OR PA AND LATERAL 2 VIEWS RAD - Routine (most inpatients and all outpatients) 12/24/2023 10:42 AM NET DEVELOPER CONSULTANT Stenosis Aortic Valve Acquired ECG Routine 12/24/2023 10:12 AM NET DEVELOPER CONSULTANT Stenosis Aortic Valve Acquired C-REACTIVE PROTEIN (CRP), S/P Routine 12/24/2023 9:44 AM NET DEVELOPER CONSULTANT Pericarditis Constrictive (HCC) SODIUM, S/P Routine 12/24/2023 9:44 AM NET DEVELOPER CONSULTANT Stenosis Aortic Valve Acquired POTASSIUM, S/P Routine 12/24/2023 9:44 AM NET DEVELOPER CONSULTANT Stenosis Aortic Valve Acquired NT-PRO B-TYPE NATRIURETIC PEPTIDE (BNP), S Routine 12/24/2023 9:44 AM NET DEVELOPER CONSULTANT Stenosis Aortic Valve Acquired LIPID PANEL, S Routine 12/24/2023 9:44 AM NET DEVELOPER CONSULTANT Stenosis Aortic Valve Acquired GLUCOSE, FASTING, S/P Routine 12/24/2023 9:44 AM NET DEVELOPER CONSULTANT Stenosis Aortic Valve Acquired CREATININE WITH EGFR, S/P Routine 12/24/2023 9:44 AM NET DEVELOPER CONSULTANT Stenosis Aortic Valve Acquired CBC WITH DIFFERENTIAL, B Routine 12/24/2023 9:44 AM NET DEVELOPER CONSULTANT Stenosis Aortic Valve Acquired ALBUMIN, S/P Routine 12/24/2023 9:44 AM NET DEVELOPER CONSULTANT Stenosis Aortic Valve Acquired PROTHROMBIN TIME (PT), P Routine 12/24/2023 9:43 AM NET DEVELOPER CONSULTANT Stenosis Aortic Valve Acquired SEDIMENTATION RATE, B Routine 12/24/2023 9:39 AM NET DEVELOPER CONSULTANT Pericarditis Constrictive (HCC) (TTE) 2D LIMITED WITH COLOR AND DOPPLER Routine 12/24/2023 8:52 AM NET DEVELOPER CONSULTANT Stenosis Aortic Valve Acquired HEMOGLOBIN A1C, B Routine 08/22/2023 5:1 4 AM CDT COLONOSCOPY Routine 11/21/2022 from Last 3 Months or Most Recently Relevant to Health Maintenance Results * (ABNORMAL) Basic Metabolic Panel (02/04/2024 10:56 AM CDT) Potassium, P 4.4 3.6 - 5.2 mmol/L 02/04/2024 1:43 PM CDT OWAT Sodium, P 143 135 - 145 mmol/L 02/04/2024 1:43 PM CDT OWAT Chloride, P 102 98 - 107 mmol/L 02/04/2024 1:43 PM CDT OWAT Bicarbonate, P 32(H) 22 - 29 mmol/L 02/04/2024 1:43 PM CDT OWAT Anion Gap, P 9 7 - 15 02/04/2024 1:43 PM CDT OWAT BUN (Blood Urea Nitrogen), P 38(H) 8 - 24 mg/dL 02/04/2024 1:43 PM CDT OWAT Creatinine 2.01(H) 0.74 - 1.35 mg/dL 02/04/2024 1:43 PM CDT OWAT Estimated GFR (eGFR) 35(L) >=60 mL/min/BSA 02/04/2024 1:43 PM CDT OWAT Comment: Estimated GFR calculated using the 2020 CKD_EPI creatinine equation. Calcium, Total, P 9.7 8.8 - 10.2 mg/dL 02/04/2024 1:43 PM CDT OWAT Glucose, P 180(H) 70 - 140 mg/dL 02/04/2024 1:43 PM CDT OWAT Blood (Blood, Venous) 02/04/2024 10:56 AM CDT 02/04/2024 1:07 PM CDT Mare Seymour M.D., Ph.D. LAB BL OOD ADD-ON [facility] [address] [place] [address], [facility] OW[address] [facility] [place] [address] [place] [address] * (ABNORMAL) Renal Function Panel (01/16/2024 10:30 AM NET DEVELOPER CONSULTANT) Potassium, P 4.9 3.6 - 5.2 mmol/L 01/16/2024 2:22 PM NET DEVELOPER CONSULTANT OWAT Sodium, P 140 135 - 145 mmol/L 01/16/2024 2:22 PM NET DEVELOPER CONSULTANT OWAT Chloride, P 101 98 - 107 mmol/L 01/16/2024 2:22 PM NET DEVELOPER CONSULTANT OWAT Bicarbonate, P 31(H) 22 - 29 mmol/L 01/16/2024 2:22 PM NET DEVELOPER CONSULTANT OWAT Anion Gap, P 8 7 - 15 01/16/2024 2:22 PM NET DEVELOPER CONSULTANT OWAT BUN (Blood Urea Nitrogen), P 41(H) 8 - 24 mg/dL 01/16/2024 2:22 PM NET DEVELOPER CONSULTANT OWAT Creatinine 2.07(H) 0.74 - 1.35 mg/dL 01/16/2024 2:22 PM NET DEVELOPER CONSULTANT OWAT Estimated GFR (eGFR) 34(L) >=60 mL/min/BSA 01/16/2024 2:22 PM NET DEVELOPER CONSULTANT OWAT Comment: Estimated GFR calculated using the 2020 CKD_EPI creatinine equation. Calcium, Total, P 9.4 8.8 - 10.2 mg/dL 01/16/2024 2:22 PM NET DEVELOPER CONSULTANT OWAT Glucose, P 142(H) 70 - 140 mg/dL 01/16/2024 2:22 PM NET DEVELOPER CONSULTANT OWAT Albumin, P 3.6 3.5 - 5.0 g/dL 01/16/2024 2:22 PM NET DEVELOPER CONSULTANT OWAT Phosphorus (Inorganic), P 3.9 2.5 - 4.5 mg/dL 01/16/2024 3:49 PM NET DEVELOPER CONSULTANT AUST Blood (Blood, Venous) 01/16/2024 10:30 AM NET DEVELOPER CONSULTANT 01/16/2024 1:43 PM NET DEVELOPER CONSULTANT Narrative [facility] - 01/16/2024 3:49 PM NET DEVELOPER CONSULTANT Specimen Information: Specimen ID: [id number] Specimen Type: Blood Specimen Collection Start Date: 01/16/2024 10:30 AM Specimen Received Date: 01/16/2024 ??1:43 PM Specimen ID: [id number] Specimen Type: Blood Specimen Collection Start Date: 01/16/2024 10:30 AM Specimen Received Date: 01/16/2024 ??3:33 PM Mare Seymour M.D., Ph.D. LAB BL OOD ADD-ON Performing Organization Address City/[facility]/ZIP Co de Phone Number [facility] [address] [place] [address], [facility] in [place] [address] [place] [address] [facility] [place] [address] * Sedimentation Rate (01/16/2024 10:30 AM NET DEVELOPER CONSULTANT) Only the most recent of2 resultswithin the time period is included. Sedimentation Rate, B 11 0 - 22 mm/1 h 01/16/2024 4:01 PM NET DEVELOPER CONSULTANT [facility] Blood (Blood, Venous) 01/16/2024 10:30 AM NET DEVELOPER CONSULTANT 01/16/2024 3:33 PM NET DEVELOPER CONSULTANT Gudelia Soto M.D. LAB BLOOD ADD-ON Performing Organization Address City/[facility]/ZIP Co de Phone Number [facility] [address] [place] [address], [facility] - [address] [address] * CRP (C-Reactive Protein) (01/16/2024 10:30 AM NET DEVELOPER CONSULTANT) Only the most recent of2 resultswithin the time period is included. C-Reactive Protein (CRP), P <3.0 <5.0 mg/L 01/16/2024 2:22 PM NET DEVELOPER CONSULTANT OW Blood (Blood, Venous) 01/16/2024 10:30 AM NET DEVELOPER CONSULTANT 01/16/2024 1:43 PM NET DEVELOPER CONSULTANT Gudelia Soto M.D. LAB BLOOD ADD-ON [facility] [place] [facility] [address] [place] [address], [place] [address] [facility] [place] [address] [place] [address] * MR Cardiac without and with IV Contrast (12/25/2023 4:05 PM NET DEVELOPER CONSULTANT) Anatomical Region Laterality Modality Cardiac, Cardiovascular RST LOS, Thoracic ARZ LOS, Cardiovascular FLA LOS N/A Magnetic Resonance Impressions 12/25/2023 5:08 PM NET DEVELOPER CONSULTANT 1. 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 2. ??Small fibrinous loculated pericardial effusion, predominantly along the lateral and inferior aspects of the left ventricle. 3. ??Normal biventricular chamber size and function. 4. ??Large bilateral pleural effusions. Small amount of abdominal ascites. Narrative 12/25/2023 5:08 PM NET DEVELOPER CONSULTANT EXAM: ??MR CARDIAC WITHOUT AND WITH IV [...] the inferior RV insertion points (series 28, -26). RIGHT VENTRICLE: Normal right ventricular chamber size [...] and Lateral 2 Views (12/24/2023 10:42 AM NET DEVELOPER CONSULTANT) Anatomical Region Laterality Modality Chest, Thoracic RST LOS, Tho racic ARZ LOS, Thoracic FLA LOS N/A Digital Radiography Impressions 12/24/2023 12:00 PM NET DEVELOPER CONSULTANT Small bilateral pleural effusions are decreased. Improved aeration of the left lung base with decreased previous probable subsegmental atelectasis. No new consolidation. No pneumothorax. Cardiac silhouette is mildly enlarged, unchanged. Prosthetic aortic valve. Intact sternotomy wires. Loop recorder in soft tissues of the anterior chest wall. Narrative 12/24/2023 12:00 PM NET DEVELOPER CONSULTANT EXAM: ??DX CHEST AP OR PA AND [...] * ECG 12 Lead (12/24/2023 10:12 AM NET DEVELOPER CONSULTANT) Ventricular Rate ECG/Min 83 BPM MUSE CO Interval 138 ms MUSE QRSD Interval 76 ms MUSE QT Interval 400 ms MUSE QTC Interval 470 ms MUSE P [place] 55 degrees MUSE R [place] 61 degrees MUSE T Wave [place] 49 degrees MUSE 12/24/2023 10:1 2 AM NET DEVELOPER CONSULTANT 12/24/2023 10:21 AM NET DEVELOPER CONSULTANT Impressions MUSE - 12/24/2023 10:21 AM NET DEVELOPER CONSULTANT Poor data quality Normal sinus rhythm Low voltage QRS in limb leads Nonspecific ST and T wave abnormality When compared with ECG of 25-SEP-2023 04:55, No significant change Reviewed by MARIELA Mathews Narrative Procedure Note Jeo Kumar Jr., M.D. - 12/24/2023 IMPRESSION: Poor data quality Normal sinus rhythm Low voltage QRS in limb leads Nonspecific ST and T wave abnormality When compared with ECG of 25-SEP-2023 04:55, No significant change Reviewed by MARIELA Mathews Gudelia Soto M.D. ECG ORDERABLES MUSE NA * Lipid Panel (12/24/2023 9:44 AM NET DEVELOPER CONSULTANT) Triglycerides 68 mg/dL 12/24/2023 1:00 PM NET DEVELOPER CONSULTANT DTL Comment: ----REFERENCE VALUE---- Normal: <150 mg/dL Borderline High: 150-199 mg/dL High: 200-499 mg/dL Very High: > or =500 mg/dL Cholesterol, Total 107 mg/dL 2023 1:00 PM NET DEVELOPER CONSULTANT DTL Comment: ----REFERENCE VALUE---- Desirable: < 200 mg/dL Borderline High: 200 - 239 mg/dL High: > or = 240 mg/dL Cholesterol, LDL, Calculated 50 mg/dL 12/24/2023 1:00 PM NET DEVELOPER CONSULTANT DTL Comment: ----REFERENCE VALUE---- Desirable: <100 mg/dL Above Desirable: 100-129 mg/dL Borderline High: 130-159 mg/dL High: 160-189 mg/dL Very High: >=190 mg/dL ----ADDITIONAL INFORMATION---- LDL cholesterol calculated using the Iglesias/NIH equation. Cholesterol, HDL, S 42 >=40 mg/dL 12/24/2023 1:00 PM NET DEVELOPER CONSULTANT DTL Cholesterol, Non-HDL, Calculated 65 mg/dL 12/24/2023 1:00 PM NET DEVELOPER CONSULTANT DTL Comment: ----REFERENCE VALUE---- Desirable: <130 mg/dL Above Desirable: 130-159 mg/dL Borderline High: 160-189 mg/dL High: 190-219 mg/dL Very High: > or =220 mg/dL Fasting (8 HR or more) yes 12/24/2023 10:18 AM NET DEVELOPER CONSULTANT DTL Blood (Blood, Venous) 12/24/2023 9:44 AM NET DEVELOPER CONSULTANT 12/24/2023 10:18 AM NET DEVELOPER CONSULTANT Gudelia Soto M.D. LAB BLOOD ADD-ON Performing Organization Address City/[facility] Co de Phone Number [facility] [place] [address] [place], [place] [id number] [place] [address] [address] * (ABNORMAL) NT-Pro B-Type Natriuretic Peptide (BNP) (12/24/2023 9:44 AM NET DEVELOPER CONSULTANT) NT-Pro BNP 5208(H) <=540 pg/mL 12/24/2023 1:00 PM NET DEVELOPER CONSULTANT DTL Comment: NT-proBNP values less than 300 [...] failure. Blood (Blood, Venous) 12/24/2023 9:44 AM NET DEVELOPER CONSULTANT 12/24/2023 10:18 AM NET DEVELOPER CONSULTANT Gudelia Soto M.D. LAB BLOOD ADD-ON Performing Organization Address City/[facility] Co de Phone Number [facility] [place] [address] [place], [place] [address] [address] [place] [address] * (ABNORMAL) CBC with Differential, Blood (12/24/2023 9:44 AM NET DEVELOPER CONSULTANT) Hemoglobin 10.8(L) 13.2 - 16.6 g/dL 12/24/2023 10:39 AM NET DEVELOPER CONSULTANT DTL Hematocrit 35.4(L) 38.3 - 48.6 % 12/24/2023 10:39 AM NET DEVELOPER CONSULTANT DTL Erythrocytes 4.01(L) 4.35 - 5.65 x10(12)/L 12/24/2023 10:39 AM NET DEVELOPER CONSULTANT DTL MCV 88.3 78.2 - 97.9 fL 12/24/2023 10:39 AM NET DEVELOPER CONSULTANT DTL RBC Distrib Width 15.0(H) 11.8 - 14.5 % 12/24/2023 10:39 AM NET DEVELOPER CONSULTANT DTL Platelet Count 187 135 - 317 x10(9)/L 12/24/2023 10:39 AM NET DEVELOPER CONSULTANT DTL Leukocytes 5.5 3.4 - 9.6 x10(9)/L 12/24/2023 10:39 AM NET DEVELOPER CONSULTANT DTL Neutrophils 3.96 1.56 - 6.45 x10(9)/L 12/24/2023 10:39 AM NET DEVELOPER CONSULTANT DHPM Lymphocytes 0.90(L) 0.95 - 3.07 x10(9)/L 12/24/2023 10:39 AM NET DEVELOPER CONSULTANT DTL Monocytes 0.56 0.26 - 0.81 x10(9)/L 12/24/2023 10:39 AM NET DEVELOPER CONSULTANT DTL Eosinophils 0.07 0.03 - 0.48 x10(9)/L 12/24/2023 10:39 AM NET DEVELOPER CONSULTANT DTL Basophils 0.03 0.01 - 0.08 x10(9)/L 12/24/2023 10:39 AM NET DEVELOPER CONSULTANT DTL Blood (Blood, Venous) 12/24/2023 9:44 AM NET DEVELOPER CONSULTANT 12/24/2023 10:07 AM NET DEVELOPER CONSULTANT Gudelia Soto M.D. LAB BLOOD ADD-ON [facility] [place] [address] [place] [address], [facility] DTL [facility] [address] [place] [address] [facility] [address] [place] [address] * Sodium (12/24/2023 9:44 AM NET DEVELOPER CONSULTANT) Sodium, S 143 135 - 145 mmol/L 12/24/2023 1:00 PM NET DEVELOPER CONSULTANT DTL Blood (Blood, Venous) 12/24/2023 9:44 AM NET DEVELOPER CONSULTANT 12/24/2023 10:18 AM NET DEVELOPER CONSULTANT Gudelia Soto M.D. LAB BLOOD ADD-ON Performing Organization Address City/[facility]/ZIP Co de Phone Number [facility] [place] [address] [place], [place] [id number] [place] [address] 200 [place] [address] * Potassium (12/24/2023 9:44 AM NET DEVELOPER CONSULTANT) Potassium, S 4.1 3.6 - 5.2 mmol/L 12/24/2023 1:00 PM NET DEVELOPER CONSULTANT DTL Blood (Blood, Venous) 12/24/2023 9:44 AM NET DEVELOPER CONSULTANT 12/24/2023 10:18 AM NET DEVELOPER CONSULTANT Gudelia Soto M.D. LAB BLOOD ADD-ON Performing Organization Address [facility] Co de Phone Number [facility] [place] [address] [place], [place] [id number] [place] [address] 200 [place] [address] * (ABNORMAL) Glucose, Fasting (12/24/2023 9:44 AM NET DEVELOPER CONSULTANT) Pathologist [facility] Glucose, P 112(H) 70 - 100 mg/dL 12/24/2023 10:58 AM NET DEVELOPER CONSULTANT DTL Last Intake 15 hr 12/24/2023 10:22 AM NET DEVELOPER CONSULTANT DT Blood (Blood, Venous) 12/24/2023 9:44 AM NET DEVELOPER CONSULTANT 12/24/2023 10:22 AM NET DEVELOPER CONSULTANT Gudelia Soto M.D. LAB BLOOD NON ADD-ON Performing Organization Address City/[facility]/ZIP Co de Phone Number [facility] [place] [address] [place], [place] [phone] [place] [address] 200 [place] [address] * (ABNORMAL) Creatinine with Estimated GFR (12/24/2023 9:44 AM NET DEVELOPER CONSULTANT) Creatinine 2.68(H) 0.74 - 1.35 mg/dL 12/24/2023 1:00 PM NET DEVELOPER CONSULTANT DTL Estimated GFR (eGFR) 25(L) >=60 mL/min/BSA 12/24/2023 1:00 PM NET DEVELOPER CONSULTANT DTL Comment: Estimated GFR calculated using the 2020 CKD_EPI creatinine equation. Blood (Blood, Venous) 12/24/2023 9:44 AM NET DEVELOPER CONSULTANT 12/24/2023 10:18 AM NET DEVELOPER CONSULTANT Gudelia Soto M.D. LAB BLOOD ADD-ON Performing Organization Address City/[facility]/ZIP Co de Phone Number [facility] [place] [address] [place] [address] * Albumin (12/24/2023 9:44 AM NET DEVELOPER CONSULTANT) Albumin, S 3.7 3.5 - 5.0 g/dL 12/24/2023 1:00 PM NET DEVELOPER CONSULTANT DTL Blood (Blood, Venous) 12/24/2023 9:44 AM NET DEVELOPER CONSULTANT 12/24/2023 10:18 AM NET DEVELOPER CONSULTANT Gudelia Soto M.D. LAB BLOOD ADD-ON Performing Organization Address City/[facility] Co de Phone Number [facility] [place] [address] [place] [address] * (ABNORMAL) Prothrombin Time (PT) (12/24/2023 9:43 AM NET DEVELOPER CONSULTANT) Prothrombin Time, P 31.8(H) 9.4 - 12.5 sec 12/24/2023 10:34 AM NET DEVELOPER CONSULTANT DTL INR 2.8 0.9 - 1.1 12/24/2023 10:34 AM NET DEVELOPER CONSULTANT DTL Comment: ----ADDITIONAL INFORMATION---- Standard intensity warfarin therapeutic range: 2.0 to 3.0 ?? High intensity warfarin therapeutic range: 2.5 to 3.5 Blood (Blood, Venous) 12/24/2023 9:43 AM NET DEVELOPER CONSULTANT 12/24/2023 10:08 AM NET DEVELOPER CONSULTANT Gudelia Soto M.D. LAB BLOOD ADD-ON [facility] [place] [address] [place] [address], [place] [facility] [address] [place] [address] * (TTE) 2D LIMITED WITH COLOR AND DOPPLER (12/24/2023 8:52 AM NET DEVELOPER CONSULTANT) Ejection Fraction 60 MC CV EIMS LV [...] Region Laterality Modality Echocardiography 12/24/2023 7:37 AM NET DEVELOPER CONSULTANT Impressions 12/24/2023 10:57 AM NET DEVELOPER CONSULTANT suggestive of pericardial disease. See comments. 2. 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 3. Normal left ventricular chamber size, calculated [...] CABG x1, PVI, and DAHIANA amputation (19-SEP-2023, [place]). Echocardiogram performed per left ventricular function protocol [...] the Order-Level Documents. Narrative 12/24/2023 10:57 AM NET DEVELOPER CONSULTANT For the complete report, see the Order-Level [...] prosthesis, CABG x1,PVI, and DAHIANA amputation (19-SEP-2023, [place]). 3. Normal left ventricular chamber size, calculated [...] prosthesis, CABG x1, PVI,and DAHIANA amputation (19-SEP-2023, [place]). Echocardiogram performed per leftventricular function protocol + [...] Gudelia Soto M.D. CV ECHO PROCEDURES * (ABNORMAL) Hemoglobin A1c (08/22/2023 5:14 AM CDT) Hemoglobin A1c, B 6.2(H) 4.0 - 5.6 % 08/22/2023 7:37 AM CDT DTL Comment: Hemoglobin A1c values of 5.7-6.4 percent indicate an increased risk for developing diabetes mellitus. In diabetic patients, HbA1c goals should be discussed with healthcare provider. Blood (Blood, Venous) 08/22/2023 5:14 AM CDT 08/22/2023 5:49 AM CDT Billy Segal APRN, C.N.P., D.N.P. LAB BLOOD ADD-ON [facility] [place] [address] [place] [address], [place] DTL [facility] [address] [place] [address] * Colonoscopy (11/21/2022) EXT Colonoscopy Normal - See Scanned Report for Details Normal - See Scanned Report for Details, HIMS - Report Received and Scanned Historical Provider GI PROCEDURE ORDERAB LES from Last 3 Months or Most Recently Relevant to Health Maintenance Advance Directives For more information, please contact: [phone] * Full Code (Latest Code Status on File) Date Activated Date Inactivated Comments 09/19/2023 5:07 PM 09/26/2023 6:40 PM Question Answer Comments Full Code: Discussed * Full Code Date Activated Date Inactivated Comments 09/19/2023 7:02 AM 09/19/2023 5:07 PM Question Answer Comments Full Code: Discussed * Full Code Date Activated Date Inactivated Comments 08/19/2023 9:58 PM 08/22/2023 2:12 PM Question Answer Comments Full Code: Discussed Care Teams Heat Plant Specialist Relationship Specialty Start Date End Date Kylah Crum M.D. NPVeda: [id number] [address] [place] [phone] PCP - General Family Medicine 09/28/23
--- OUTSIDE RECORDS SUMMARY | 2024-03-20 17:26 | XMS_ITS | Encounter Summary ---
Author Name Unknown Organization [facility] Address [address] [place] [address] Care Team Providers Care Yield Analyst Name Role Phone Kylah Crum M.D. Primary Care Provider [phone] Reason for Visit * Reason Comments Med Refill Encounter Details Date Type Department Care Team (Late st Contact Info) Description 02/11/2024 Refill Department of Cardiovascular Medicine in [place], [place] [address] [place] [phone] Gudelia Soto M.D. [address] [place] [address] Med Refill Social History Tobacco Use Types Packs/Day Years [...] as of this encounter Plan of Treatment Not on file documented as of this encounter Visit Diagnoses Not on filedocumented in this encounter Additional Health Concerns Assessment Noted Time PHQ-9 Depression Total Score: 1 09/10/20 2:06 PM CDT documented as of this encounter Care Teams Yield Analyst Relationship Specialty Start Date End Date Kylah Crum M.D. [address] [place] [phone] PCP - General Family Medicine 09/28/23 documented as of this encounter
--- OUTSIDE RECORDS SUMMARY | 2024-03-20 17:26 | XMS_ITS | Encounter Summary ---
Author Name Unknown Organization [facility] Address [address] [place] [address] Care Team Providers Care Barrel Roller Name Role Phone Kylah Crum M.D. Primary Care Provider [phone] Reason for Visit * Reason Comments Med Refill Encounter Details Date Type Department Care Team (Late st Contact Info) Description 03/18/2024 Refill Department of Cardiovascular Medicine in [place], [place] [address] [place] [phone] Obinna Desai, P.A.-C. [address] [place] [phone] Med Refill Social History Tobacco Use Types [...] Miscellaneous Notes * Telephone Encounter - Eneida Loya, R.N. - 03/18/2024 1:17 PM CDT Message sent to patient to see if he needs a refill. Rx sent in January should be enough to last him through his prednisone taper laid out by Dr. Soto. * Telephone Encounter - Nusrat Longoria - 03/18/2024 12:49 PM CDT Images from the original note were not included. Nurse review: Unable to pend medication to provider: Requested med found on EHA Exclusion list. Name of Medication: Prednisone Strength: 5 mg Frequency: 1 tab daily Last seen: 12-24-23 Pharmacy: documented in this encounter Plan of Treatment Not on file documented as of this encounter Visit Diagnoses Not on filedocumented in this encounter Additional Health Concerns Assessment Noted Time PHQ-9 Depression Total Score: 1 09/10/20 2:06 PM CDT documented as of this encounter Care Teams Barrel Roller Relationship Specialty Start Date End Date Kylah Crum M.D. [address] [place] [phone] PCP - General Family Medicine 09/28/23 documented as of this encounter
--- OUTSIDE RECORDS SUMMARY | 2024-03-20 17:26 | XMS_ITS | Clinical Summary ---
Author Name Unknown Organization [facility] Address [address] [place] [address] Care Team Providers Care Truck Body Repairer Name Role Phone Kylah Crum M.D. Primary Care Provider Source Comments Patient records contain information from all sites at [facility]. For routine questions regarding patient records, call [phone] during business hours, M-F 8:00 AM - 5:00 PM Central Time. Record requests for emergency care only can be directed to [phone] at any time.[facility] Allergies No known active allergies Medications Medication [...] in conjunction with 1 mg tablets. Take 1qgz47wdyq,1phd45ez ys,3uud44tdty,6mgx1 4days,9wqa95omuk,4m nq41sbil,4mqa54keoz ,3scl32lbsv,0voj73r ays. 70 tablet 4 03/18/20 24 Discontinued [...] taken in conjunction with 5mg tablets. Take 2kcr77juix,6ikc05zq ys,0fkv91qdrw,6mgx1 4days,5hph99jdjt,4m or71ygcf,9xxw37eaoj ,5hdt87jlpb,9xlg64i ays.. 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 Med Refill 02/11/2024 Refill Department of Cardiovascular Medicine in [place], [place] [address] [place] [address] Gudelia Soto M.D. Med Refill 02/04/2024 10:49 AM CDT - 02/04/2024 11:59 PM CDT Hospital Encounter Department of Laboratory Medicine in [place], [place] [address] [place] [phone] Mare Arauz M.D., Ph.D. Chronic Kidney Disease (CKD), Stage 3b Glomerular Filtration Rate (GFR) 30 To 44 ([facility]) Discharge Disposition: Home or Self Care 02/01/2024 Orders Only Division of Nephrology and Hypertension in [place], [place] [address] [place] [address] Mare Arauz M.D., Ph.D. Chronic Kidney Disease (CKD), Stage 3b Glomerular Filtration Rate (GFR) 30 To 44 (HCC) (Primary Dx) 01/28/2024 Clinical Communication Department of Family Medicine, [facility], in [place], [place] [address] [place] [address] Kylah Crum M.D. Results ([facility]) 01/16/2024 10:22 AM FUR TRIMMER - 01/16/2024 11:59 PM FUR TRIMMER Hospital Encounter Department of Laboratory Medicine in [place], [place] [address] [place] [phone] Mare Arauz M.D., Ph.D. Hypertension And Chronic Kidney Disease Stage 4 (HCC); Pericardial Disease (HCC) Discharge Disposition: Home or Self Care 01/15/2024 Orders [facility] Kyl[facility] Crum M.D. Diabetes Mellitus Type 2 (HCC) 01/15/2024 Clinical Communication Department of Cardiovascular Medicine in [place], [place] [address] [place] [address] Eneida Loya, R.N. 01/01/2024 3:30 PM FUR TRIMMER External Outreach Division of Nephrology and Hypertension in [place], [place] [address] [place] [address] Mare Arauz M.D., Ph.D. Hypertension And Chronic Kidney Disease Stage 4 (HCC) (Primary Dx); Anemia In Chronic Kidney Disease; Failure Renal Acute (Acute Kidney Injury) (HCC) 12/27/2023 Clinical Communication Department of Cardiovascular Medicine in [place], [place] [address] [place] [address] Eneida Loya, R.N. 12/26/2023 Clinical Communication Department of Cardiovascular Medicine in [place], [place] [address] [place] [phone] Eneida Loya, R.N. 12/26/2023 Clinical Communication Department of Cardiovascular Medicine in [place], [place] [address] [place] [address] ShiEneida martin R.N. 12/25/2023 2:20 PM FUR TRIMMER - 12/25/2023 11:59 PM FUR TRIMMER Hospital Encounter Department of Radiology, [facility] in [place], [place] [address] [place] [address] Gudelia Soto M.D. Pericarditis Constrictive (HCC) Discharge Disposition: Home or Self Care 12/24/2023 2:00 PM FUR TRIMMER Comprehensive Visit Department of Cardiovascular Medicine in [place], [place] [address] [place] [address] Gudelia Soto M.D. Pericarditis Constrictive (HCC) (Primary Dx); Stenosis Aortic Valve Acquired; Atrial Fibrillation Paroxysmal (HCC); Coronary Artery Disease Without Angina Pectoris; Cardiac Surgery Status Post; Fdc (Current) Anticoagulant Treatment; Bypass Coronary Artery Graft Status Post; Effusion Pleural; Diabetes Mellitus Type 2 (HCC); Benign Prostatic Hyperplasia Without Obstruction; Stroke Cerebrovascular Accident Personal History 12/24/2023 10:15 AM FUR TRIMMER - 12/24/2023 11:59 PM FUR TRIMMER Hospital Encounter Department of Radiology, [facility] in [place], [place] [address] [place] [address] Gudelia Soto M.D. Stenosis Aortic Valve Acquired Discharge Disposition: Home or Self Care 12/24/2023 9:07 AM FUR TRIMMER - 12/24/2023 10:14 AM FUR TRIMMER Hospital Encounter Department of Laboratory Medicine and Pathology, [facility] in [place], [place] [address] [place] [address] Gudelia Soto M.D. Stenosis Aortic Valve Acquired Discharge Disposition: Home or Self Care 12/24/2023 7:30 AM FUR TRIMMER - 12/24/2023 9:06 AM FUR TRIMMER Hospital Encounter Department of Cardiovascular Diseases in [place], [place] [address] [place] [address] Gudelia Soto M.D. Stenosis Aortic Valve Acquired [...] living situation today? I have a [facility] place to live 08/29/2023 Sex and Gender Information Value Date Recorded Sex Assigned at Male 08/29/2023 11:06 AM CDT Gender Identity Male 08/29/2023 11:06 AM CDT Sexual Orientation Straight 08/29/2023 11 :06 AM CDT Last Filed Vital Signs Vital Sign Reading Time Taken Comments Blood Pressure 111/68 12/24/2023 1:40 PM FUR TRIMMER Pulse 86 12/24/2023 1:40 PM FUR TRIMMER Temperature 36.1 ??C (96.9 ??F) 10/01/2023 1 1:08 AM FUR TRIMMER Respiratory Rate 20 10/01/2023 11:0 8 AM FUR TRIMMER Oxygen Saturation 98% 10/01/2023 11: 08 AM FUR TRIMMER Inhaled Oxygen Concentration - - Weight 85.2 kg (187 lb 13.3 oz) 12/25/2023 2:40 PM FUR TRIMMER Height 169.5 cm (5' 6.73) 12/25/2023 2:40 PM CS T Body Mass Index 29.66 12/25/2023 2:40 PM FUR TRIMMER Plan of Treatment Health Maintenance Due Date Last Done Comments Abdominal Aortic Aneurysm (A AA) Screen 1952 CT Colonography 1952 Cologuard 1952 Diabetic Office Visit with F oot Exam 1952 Dilated Eye Exam 1952 FIT 1952 Hepatitis C Screening 1952 Urine Albumin 1952 Visit: Medicare Annual Wellness 1952 Pneumococcal vaccine (65+ ye ars) (1 of 2 - PCV) 1958 DTaP,Tdap,and Td Vaccines (1 - Tdap) 1971 Zoster Vaccines (1 of 2) 2002 Hepatitis B Vaccines (1 of 3 - Risk 3-dose series) 2012 COVID-19 Vaccine (1 - 2022-2 4 season) 2023 Influenza Vaccine (#1) 2023 Depression Screening (Annual PHQ-2) 11/12/2023 Hemoglobin A1C 02/21/2024 08/22/2023 Visit: Chronic Disease, age 18+ 10/01/2024 , 10/01/2023 Office Visit for Blood Press ure Check / Re-check 12/24/2024 12/24/2023 Creatinine Level (Kidney Fun ction Test) 02/03/2025 02/04/2024, 01/16/2024, 12/24/2023, Additional history exists Potassium Level 02/03/2025 02/04/2024, 03/0 04/2024, 12/24/2023, Additional history exists Sodium Level 02/03/2025 02/04/2024, 03/0 04/2024, 12/24/2023, Additional history exists Lipid (Cholesterol) Screening 12/24/2028 12/24/2023, 08/21/2023 Colonoscopy 11/21/2032 11/21/2022, 11/12 (Performed elsewhere), 11/21/2022 Colorectal Cancer Screening 11/21/2032 Fall Risk Screen (Annual) Completed 12/24/2023 Medical Devices Implanted Type Area Aerial Tram Operator Device Identifier Shelf Expiration Date Model / Serial / Lot Vlv Aort Cnf [facility] 23 - [id number] - [id number] Implanted:Qty: 1 on 09/19/2023 by Sarah Miller M.D., M.P.H. at [facility] Cardiac Valve Prosthesis N/A: Aortic Valve Artivion (Prev. [employer]oLife) 2028 ONXACE-2 3 / [id number] / Description:MRI conditional up to 3T, normal mode, per pound keeper. [email or web address] _All.pdf AFK Clp Hrzn Ti 24 Clp Akhil - [id number] Implanted:Qty: 1 on 09/19/2023 by Sarah Miller M.D., M.P.H. at [facility] Hardware e.g. pins/screws/r ods N/A: Chest [employer] [id number] 04/29/2028 [id number] / / [id number] Clp Hrzn Ti 6 Clp Md Akhil - [id number] Implanted:Qty: 1 on 09/19/2023 by Sarah Miller M.D., M.P.H. at [facility] Hardware e.g. pins/screws/r ods N/A: Chest [employer] [id number] / / Clp Hrzn Ti 24 Clp Sm Red - [id number] Implanted:Qty: 1 on 09/19/2023 by Sarah Miller M.D., M.P.H. at [facility] Hardware e.g. pins/screws/r ods N/A: Chest [employer] [id number] / / Clp Hrzn Ti 24 Clp Sm Red - [id number] Implanted:Qty: 1 on 09/19/2023 by Sarah Miller M.D., M.P.H. at [facility] Hardware e.g. pins/screws/r ods N/A: Chest [employer] [id number] / / [place] [facility] Tfln 1x6 - [id number] Implanted:Qty: 1 on 09/19/2023 by Sarah Miller M.D., M.P.H. at [facility] Hardware e.g. pins/screws/r ods N/A: Chest Mosoro [id number] / / Medtronic Linq-05/05/2019 Implanted:04/13 by Chet Badillo M.D., Ph.D. (Quantity not on file) Implantable Loop Recorder Chest Medtronic [id number] / [id number] / Description:MR Conditional 1 .5T and 3T - First level operating mode. - Jayro Abernathy 12/25/2023 Procedures Procedure Name Priority Date/Time Associated Diagnosis Comments BASIC METABOLIC PANEL, S/P Routine 02/04/2024 10:56 AM CDT Chronic Kidney Disease (CKD), Stage 3b Glomerular Filtration Rate (GFR) 30 To 44 (HCC) C-REACTIVE PROTEIN (CRP), S/P Routine 01/16/2024 10:30 AM FUR TRIMMER Pericardial Disease (HCC) SEDIMENTATION RATE, B Routine 01/16/2024 10:30 AM FUR TRIMMER Pericardial Disease (HCC) RENAL FUNCTION PANEL, S Routine 01/16/2024 10:30 AM FUR TRIMMER Hypertension And Chronic Kidney Disease Stage 4 (HCC) MR CARDIAC WITHOUT AND WITH IV CONTRAST RAD - Routine (most inpatients and all outpatients) 12/25/2023 4:05 PM FUR TRIMMER Pericarditis Constrictive (HCC) DX CHEST AP OR PA AND LATERAL 2 VIEWS RAD - Routine (most inpatients and all outpatients) 12/24/2023 10:42 AM FUR TRIMMER Stenosis Aortic Valve Acquired ECG Routine 12/24/2023 10:12 AM FUR TRIMMER Stenosis Aortic Valve Acquired C-REACTIVE PROTEIN (CRP), S/P Routine 12/24/2023 9:44 AM FUR TRIMMER Pericarditis Constrictive (HCC) SODIUM, S/P Routine 12/24/2023 9:44 AM FUR TRIMMER Stenosis Aortic Valve Acquired POTASSIUM, S/P Routine 12/24/2023 9:44 AM FUR TRIMMER Stenosis Aortic Valve Acquired NT-PRO B-TYPE NATRIURETIC PEPTIDE (BNP), S Routine 12/24/2023 9:44 AM FUR TRIMMER Stenosis Aortic Valve Acquired LIPID PANEL, S Routine 12/24/2023 9:44 AM FUR TRIMMER Stenosis Aortic Valve Acquired GLUCOSE, FASTING, S/P Routine 12/24/2023 9:44 AM FUR TRIMMER Stenosis Aortic Valve Acquired CREATININE WITH EGFR, S/P Routine 12/24/2023 9:44 AM FUR TRIMMER Stenosis Aortic Valve Acquired CBC WITH DIFFERENTIAL, B Routine 12/24/2023 9:44 AM FUR TRIMMER Stenosis Aortic Valve Acquired ALBUMIN, S/P Routine 12/24/2023 9:44 AM FUR TRIMMER Stenosis Aortic Valve Acquired PROTHROMBIN TIME (PT), P Routine 12/24/2023 9:43 AM FUR TRIMMER Stenosis Aortic Valve Acquired SEDIMENTATION RATE, B Routine 12/24/2023 9:39 AM FUR TRIMMER Pericarditis Constrictive (HCC) (TTE) 2D LIMITED WITH COLOR AND DOPPLER Routine 12/24/2023 8:52 AM FUR TRIMMER Stenosis Aortic Valve Acquired HEMOGLOBIN A1C, B [...] Seymour M.D., Ph.D. LAB BL OOD ADD-ON [facility] [address] [place] [address], [facility] OWAT [facility] in [place] [address] [place] [address] * (ABNORMAL) Renal Function Panel (01/16/2024 10:30 AM FUR TRIMMER) Potassium, P 4.9 3.6 - 5.2 mmol/L 01/16/2024 2:22 PM FUR TRIMMER OWAT Sodium, P 140 135 - 145 mmol/L 01/16/2024 2:22 PM FUR TRIMMER OWAT Chloride, P 101 98 - 107 mmol/L 01/16/2024 2:22 PM FUR TRIMMER OWAT Bicarbonate, P 31(H) 22 - 29 mmol/L 01/16/2024 2:22 PM FUR TRIMMER OWAT Anion Gap, P 8 7 - 15 01/16/2024 2:22 PM FUR TRIMMER OWAT BUN (Blood Urea Nitrogen), P 41(H) 8 - 24 mg/dL 01/16/2024 2:22 PM FUR TRIMMER OWAT Creatinine 2.07(H) 0.74 - 1.35 mg/dL 01/16/2024 2:22 PM FUR TRIMMER OWAT Estimated GFR (eGFR) 34(L) >=60 mL/min/BSA 01/16/2024 2:22 PM FUR TRIMMER OWAT Comment: Estimated GFR calculated using the 2020 CKD_EPI creatinine equation. Calcium, Total, P 9.4 8.8 - 10.2 mg/dL 01/16/2024 2:22 PM FUR TRIMMER OWAT Glucose, P 142(H) 70 - 140 mg/dL 01/16/2024 2:22 PM FUR TRIMMER OWAT Albumin, P 3.6 3.5 - 5.0 g/dL 01/16/2024 2:22 PM FUR TRIMMER OWAT Phosphorus (Inorganic), P 3.9 2.5 - 4.5 mg/dL 01/16/2024 3:49 PM FUR TRIMMER AUST Blood (Blood, Venous) 01/16/2024 10:30 AM FUR TRIMMER 01/16/2024 1:43 PM FUR TRIMMER Narrative [facility] - 01/16/2024 3:49 PM FUR TRIMMER Specimen Information: Specimen ID: [id number] Specimen Type: Blood Specimen Collection Start Date: 01/16/2024 10:30 AM Specimen Received Date: 01/16/2024 ??1:43 PM Specimen ID: [id number] Specimen Type: Blood Specimen Collection Start Date: 01/16/2024 10:30 AM Specimen Received Date: 01/16/2024 ??3:33 PM Mare Seymour M.D., Ph.D. LAB BL OOD ADD-ON Performing Organization Address City/[facility]/ZIP Co de Phone Number [facility] [address] in [place] [address] [place] [address] [facility] [place] [address] * Sedimentation Rate (01/16/2024 10:30 AM FUR TRIMMER) Only the most recent of2 resultswithin the time period is included. Sedimentation Rate, B 11 0 - 22 mm/1 h 01/16/2024 4:01 PM FUR TRIMMER AUST Blood (Blood, Venous) 01/16/2024 10:30 AM FUR TRIMMER 01/16/2024 3:33 PM FUR TRIMMER Gudelia Soto M.D. LAB BLOOD ADD-ON Performing Organization Address [facility]/ZIP Co de Phone Number [facility] [address] [place] [address] * CRP (C-Reactive Protein) (01/16/2024 10:30 AM FUR TRIMMER) Only the most recent of2 resultswithin the time period is included. C-Reactive Protein (CRP), P <3.0 <5.0 mg/L 01/16/2024 2:22 PM FUR TRIMMER OWAT Blood (Blood, Venous) 01/16/2024 10:30 AM FUR TRIMMER 01/16/2024 1:43 PM FUR TRIMMER Gudelia Soto M.D. LAB BLOOD ADD-ON [facility] [address] [place] [address], [facility] OWAT [facility] in [place] [address] [place] [address] * MR Cardiac without and with IV Contrast (12/25/2023 4:05 PM FUR TRIMMER) Anatomical Region Laterality Modality Cardiac, Cardiovascular RST LOS, Thoracic ARZ LOS, Cardiovascular FLA LOS N/A Magnetic Resonance Impressions 12/25/2023 5:08 PM FUR TRIMMER 1. 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 2. ??Small fibrinous loculated pericardial effusion, predominantly along the lateral and inferior aspects of the left ventricle. 3. ??Normal biventricular chamber size and function. 4. ??Large bilateral pleural effusions. Small amount of abdominal ascites. Narrative 12/25/2023 5:08 PM FUR TRIMMER EXAM: ??MR CARDIAC WITHOUT AND WITH IV [...] the inferior RV insertion points (series 28, [id number]). RIGHT VENTRICLE: Normal right ventricular chamber size [...] Gudelia Soto M.D. IMG MRI PROCEDURES * DX Chest AP or PA and Lateral 2 Views (12/24/2023 10:42 AM FUR TRIMMER) Anatomical Region Laterality Modality Chest, Thoracic RST LOS, Tho racic ARZ LOS, Thoracic FLA LOS N/A Digital Radiography Impressions 12/24/2023 12:00 PM FUR TRIMMER Small bilateral pleural effusions are decreased. Improved aeration of the left lung base with decreased previous probable subsegmental atelectasis. No new consolidation. No pneumothorax. Cardiac silhouette is mildly enlarged, unchanged. Prosthetic aortic valve. Intact sternotomy wires. Loop recorder in soft tissues of the anterior chest wall. Narrative 12/24/2023 12:00 PM FUR TRIMMER EXAM: ??DX CHEST AP OR PA AND [...] * ECG 12 Lead (12/24/2023 10:12 AM FUR TRIMMER) Ventricular Rate ECG/Min 83 BPM MUSE RI Interval 138 ms MUSE QRSD Interval 76 ms MUSE QT Interval 400 ms MUSE QTC Interval 470 ms MUSE P [place] 55 degrees MUSE R [place] 61 degrees MUSE T Wave [place] 49 degrees MUSE 12/24/2023 10:1 2 AM FUR TRIMMER 12/24/2023 10:21 AM FUR TRIMMER Impressions MUSE - 12/24/2023 10:21 AM FUR TRIMMER Poor data quality Normal sinus rhythm Low [...] NA * Lipid Panel (12/24/2023 9:44 AM FUR TRIMMER) Triglycerides 68 mg/dL 12/24/2023 1:00 PM FUR TRIMMER DTL Comment: ----REFERENCE VALUE---- Normal: <150 mg/dL Borderline High: 150-199 mg/dL High: 200-499 mg/dL Very High: > or =500 mg/dL Cholesterol, Total 107 mg/dL 2023 1:00 PM FUR TRIMMER DTL Comment: ----REFERENCE VALUE---- Desirable: < 200 mg/dL Borderline High: 200 - 239 mg/dL High: > or = 240 mg/dL Cholesterol, LDL, Calculated 50 mg/dL 12/24/2023 1:00 PM FUR TRIMMER DTL Comment: ----REFERENCE VALUE---- Desirable: <100 mg/dL Above Desirable: 100-129 mg/dL Borderline High: 130-159 mg/dL High: 160-189 mg/dL Very High: >=190 mg/dL ----ADDITIONAL INFORMATION---- LDL cholesterol calculated using the Iglesias/NIH equation. Cholesterol, HDL, S 42 >=40 mg/dL 12/24/2023 1:00 PM FUR TRIMMER DTL Cholesterol, Non-HDL, Calculated 65 mg/dL 12/24/2023 1:00 PM FUR TRIMMER DTL Comment: ----REFERENCE VALUE---- Desirable: <130 mg/dL Above Desirable: 130-159 mg/dL Borderline High: 160-189 mg/dL High: 190-219 mg/dL Very High: > or =220 mg/dL Fasting (8 HR or more) yes 12/24/2023 10:18 AM FUR TRIMMER DTL Blood (Blood, Venous) 12/24/2023 9:44 AM FUR TRIMMER 12/24/2023 10:18 AM FUR TRIMMER Gudelia Soto M.D. LAB BLOOD ADD-ON Performing Organization Address City/[facility] Co de Phone Number [facility] [address] [place], [place] [phone] [place] [address] [address] [place] [address] * (ABNORMAL) NT-Pro B-Type Natriuretic Peptide (BNP) (12/24/2023 9:44 AM FUR TRIMMER) NT-Pro BNP 5208(H) <=540 pg/mL 12/24/2023 1:00 PM FUR TRIMMER DTL Comment: NT-proBNP values less than 300 [...] failure. Blood (Blood, Venous) 12/24/2023 9:44 AM FUR TRIMMER 12/24/2023 10:18 AM FUR TRIMMER Gudelia Soto M.D. LAB BLOOD ADD-ON Performing Organization Address [facility]/ZIP Co de Phone Number [facility] [place] [address] [place] [address], [facility] [address] [place] [address] * (ABNORMAL) CBC with Differential, Blood (12/24/2023 9:44 AM FUR TRIMMER) Pathologist [facility] Hemoglobin 10.8(L) 13.2 - 16.6 g/dL 12/24/2023 10:39 AM FUR TRIMMER DTL Hematocrit 35.4(L) 38.3 - 48.6 % 12/24/2023 10:39 AM FUR TRIMMER DTL Erythrocytes 4.01(L) 4.35 - 5.65 x10(12)/L 12/24/2023 10:39 AM FUR TRIMMER DTL MCV 88.3 78.2 - 97.9 fL 12/24/2023 10:39 AM FUR TRIMMER DTL RBC Distrib Width 15.0(H) 11.8 - 14.5 % 12/24/2023 10:39 AM FUR TRIMMER DTL Platelet Count 187 135 - 317 x10(9)/L 12/24/2023 10:39 AM FUR TRIMMER DTL Leukocytes 5.5 3.4 - 9.6 x10(9)/L 12/24/2023 10:39 AM FUR TRIMMER DTL Neutrophils 3.96 1.56 - 6.45 x10(9)/L 12/24/2023 10:39 AM FUR TRIMMER DHPM Lymphocytes 0.90(L) 0.95 - 3.07 x10(9)/L 12/24/2023 10:39 AM FUR TRIMMER DTL Monocytes 0.56 0.26 - 0.81 x10(9)/L 12/24/2023 10:39 AM FUR TRIMMER DTL Eosinophils 0.07 0.03 - 0.48 x10(9)/L 12/24/2023 10:39 AM FUR TRIMMER DTL Basophils 0.03 0.01 - 0.08 x10(9)/L 12/24/2023 10:39 AM FUR TRIMMER DTL Blood (Blood, Venous) 12/24/2023 9:44 AM FUR TRIMMER 12/24/2023 10:07 AM FUR TRIMMER Gudelia Soto M.D. LAB BLOOD ADD-ON [facility] [place] [address] [place] [address], [facility] DTL [facility] [address] [place] [address] DHPM [facility] [address] [place] [address] * Sodium (12/24/2023 9:44 AM FUR TRIMMER) Sodium, S 143 135 - 145 mmol/L 12/24/2023 1:00 PM FUR TRIMMER DTL Blood (Blood, Venous) 12/24/2023 9:44 AM FUR TRIMMER 12/24/2023 10:18 AM FUR TRIMMER Gudelia Soto M.D. LAB BLOOD ADD-ON Performing Organization Address City/[facility]/ZIP Co de Phone Number [facility] [place] [address] [place] [address], [facility] [address] [place] [address] * Potassium (12/24/2023 9:44 AM FUR TRIMMER) Potassium, S 4.1 3.6 - 5.2 mmol/L 12/24/2023 1:00 PM FUR TRIMMER DTL Blood (Blood, Venous) 12/24/2023 9:44 AM FUR TRIMMER 12/24/2023 10:18 AM FUR TRIMMER Gudelia Soto M.D. LAB BLOOD ADD-ON Performing Organization Address [facility] Co de Phone Number [facility] [place] [address] [place], [place] [address] [place] [address] [address] [place] [address] * (ABNORMAL) Glucose, Fasting (12/24/2023 9:44 AM FUR TRIMMER) Pathologist [facility] Glucose, P 112(H) 70 - 100 mg/dL 12/24/2023 10:58 AM FUR TRIMMER DTL Last Intake 15 hr 12/24/2023 10:22 AM FUR TRIMMER DTL Blood (Blood, Venous) 12/24/2023 9:44 AM FUR TRIMMER 12/24/2023 10:22 AM FUR TRIMMER Gudelia Soto M.D. LAB BLOOD NON ADD-ON Performing Organization Address City/[facility]/ZIP Co de Phone Number [facility] [place] [address] [place], [place] [address] [address] [place] [address] * (ABNORMAL) Creatinine with Estimated GFR (12/24/2023 9:44 AM FUR TRIMMER) Creatinine 2.68(H) 0.74 - 1.35 mg/dL 12/24/2023 1:00 PM FUR TRIMMER DTL Estimated GFR (eGFR) 25(L) >=60 mL/min/BSA 12/24/2023 1:00 PM FUR TRIMMER DTL Comment: Estimated GFR calculated using the 2020 CKD_EPI creatinine equation. Blood (Blood, Venous) 12/24/2023 9:44 AM FUR TRIMMER 12/24/2023 10:18 AM FUR TRIMMER Gudelia Soto M.D. LAB BLOOD ADD-ON [facility] [place] [address] [place], [place] [address] [address] [place] [address] * Albumin (12/24/2023 9:44 AM FUR TRIMMER) Albumin, S 3.7 3.5 - 5.0 g/dL 12/24/2023 1:00 PM FUR TRIMMER DTL Blood (Blood, Venous) 12/24/2023 9:44 AM FUR TRIMMER 12/24/2023 10:18 AM FUR TRIMMER Gudelia Soto M.D. LAB BLOOD ADD-ON [facility] [place] [address] [place], [place] [address] [address] [address] * (ABNORMAL) Prothrombin Time (PT) (12/24/2023 9:43 AM FUR TRIMMER) Prothrombin Time, P 31.8(H) 9.4 - 12.5 sec 12/24/2023 10:34 AM FUR TRIMMER DTL INR 2.8 0.9 - 1.1 12/24/2023 10:34 AM FUR TRIMMER DTL Comment: ----ADDITIONAL INFORMATION---- Standard intensity warfarin therapeutic range: 2.0 to 3.0 ?? High intensity warfarin therapeutic range: 2.5 to 3.5 Blood (Blood, Venous) 12/24/2023 9:43 AM FUR TRIMMER 12/24/2023 10:08 AM FUR TRIMMER Gudelia Soto M.D. LAB BLOOD ADD-ON [facility] [place] [address] [place] [address], [facility] [address] [place] [address] * (TTE) 2D LIMITED WITH COLOR AND DOPPLER (12/24/2023 8:52 AM FUR TRIMMER) Ejection Fraction 60 MC CV EIMS LV [...] Region Laterality Modality Echocardiography 12/24/2023 7:37 AM FUR TRIMMER Impressions 12/24/2023 10:57 AM FUR TRIMMER suggestive of pericardial disease. See comments. 2. Status post 23 mm On-X mechanical aortic valve prosthesis, CABG x1, PVI, and DAHIANA amputation (19-SEP-2023, [place]). 3. Normal left ventricular chamber size, calculated [...] CABG x1, PVI, and DAHIANA amputation (19-SEP-2023, [place]). Echocardiogram performed per left ventricular function protocol [...] the Order-Level Documents. Narrative 12/24/2023 10:57 AM FUR TRIMMER For the complete report, see the Order-Level [...] prosthesis, CABG x1,PVI, and DAHIANA amputation (19-SEP-2023, [place]). 3. Normal left ventricular chamber size, calculated [...] prosthesis, CABG x1, PVI,and DAHIANA amputation (19-SEP-2023, [place]). Echocardiogram performed per leftventricular function protocol + [...] CDT 08/22/2023 5:49 AM CDT Billy Segal APRN C.N.P., D.N.P. LAB BLOOD ADD-ON [facility] [address] [place] [address], [place] DTL [facility] [address] [place] [address] * Colonoscopy (11/21/2022) EXT Colonoscopy Normal - See Scanned Report for Details Normal - See Scanned Report for Details, HIMS - Report Received and Scanned Historical Provider GI PROCEDURE ORDERAB LES from Last 3 Months or Most Recently Relevant to Health Maintenance Advance Directives For more information, please contact: [phone] * Full Code (Latest Code Status on [...] Answer Comments Full Code: Discussed Care Teams Truck Body Repairer Relationship Specialty Start Date End Date Kylah Crum M.D. [address] [place] [phone] PCP - General Family Medicine 09/28/23
--- OUTSIDE RECORDS SUMMARY | 2024-03-20 17:27 | XMS_ITS | Encounter Summary ---
Author Name Unknown Organization [facility] Address [address] [place] [address] Care Team Providers Care Poultry Raiser Name Role Phone Kylah Crum M.D. Primary Care Provider Encounter Details Date Type Department Care Team (Latest Contact Info) Description 01/16/2024 10:22 AM MACHINE PACKAGE SEALER - 01/16/2024 11:59 PM [facility] Hospital Encounter Department of Laboratory Medicine in [place] [address] [place] [address] Mare Arauz M.D., Ph.D. [address] [place] [address] Hypertension And Chronic Kidney Disease Stage 4 [...] Sig Dispensed Refills Start Date End Date aspirin 81 mg chewable tablet Chew 1 tablet (81 mg total) daily. 09/26/2023 09/25/2024 atorvastatin (LIPITOR) 80 mg tablet Take 1 tablet (80 mg total) by mouth at bedtime. 09/26/2023 09/25/2024 finasteride (PROSCAR) 5 mg tablet Take 1 tablet (5 mg total) by mouth daily. 09/26/2023 glipiZIDE (GLUCOTROL XL) 2.5 mg 24 hr tablet Take 1 tablet (2.5 mg total) by mouth daily with breakfast. 30 tablet 09/26/2023 metoprolol tartrate (LOPRESSOR) 25 mg tablet Take 1 tablet (25 mg total) by mouth 2 (two) times a day. 60 tablet 09/26/2023 rOPINIRole (REQUIP) 0.5 mg tablet Take 1 tablet (0.5 mg total) by mouth 3 (three) times a day. 09/26/2023 tamsulosin (FLOMAX) 0.4 mg 24 hr capsule Take 1 capsule (0.4 mg total) by mouth at bedtime. 09/26/2023 acetaminophen (TYLENOL) 500 mg tablet Take 1,000 mg by mouth every 6 (six) hours as needed for pain. cholecalciferol 10 mcg (400 Unit) tablet Take 10 mcg by mouth daily. cyanocobalamin 2,000 mcg tablet Take 2,000 mcg by mouth daily. iron,carbonyl-vitam in C (VITRON-C) 65 mg iron- [address] tablet Take 1 tablet (65 mg of iron total) by mouth daily. Do not crush or chew. 90 tablet 3 01/01/2024 12/31/2024 metoprolol succinate (TOPROL-XL) 50 mg 24 hr tablet Take 1 tablet by mouth daily. 12/20/2023 spironolactone (ALDACTONE) 25 mg tablet Take 1 tablet by mouth daily. 11/14/2023 torsemide (DEMADEX) 20 mg tablet Take 1 tablet (20 mg total) by mouth daily. 11/29/2023 warfarin (JANTOVEN) 1 mg tabletIndications:P rosthesis Aortic Valve Take per Anticoagulation Clinic 180 tablet 3 10/31/2023 predniSONE (DELTASONE) 10 mg tablet Take 2 [...] in conjunction with 5 mg tablets. Take 47krb2vudm,17.1gyi8jejr , 80oye6mlxv,12.7syv2hvvn ,62wed4erwo.. 42 tablet 12/26/2023 01/30/2024 colchicine (COLCRYS) 0.6 mg tablet Take 0.5 tablets (0.3 mg total) by mouth daily. 30 tablet 2 12/24/2023 02/11/2024 predniSONE (DELTASONE) 1 mg tablet Take 4 [...] taken in conjunction with 5mg tablets. Take 8qwe20pbsr,2eir73dcyz,7 qjo14luoy,0oap99imwa,5m pt03bjhi,7qjo81cwop,3mg o37oujw,1ebp36arfw,1mgx 14days.. 280 tablet 01/15/2024 03/18/2024 predniSONE (DELTASONE) 5 mg tablet Take 1 [...] in conjunction with 1 mg tablets. Take 6zjb68izxm,7fme52xojl,7 qpa07pmzc,8yue01fvln,5m py24trix,4uqx56ilyn,3mg y86smqn,8dqo92uqxt,1mgx 14days. 70 tablet 01/15/2024 03/18/2024 documented as of this encounter Plan of Treatment Not on file documented as of this encounter Procedures Procedure Name Priority Date/Time Associated Diagnosis Comments RENAL FUNCTION PANEL, S Routine 01/16/2024 10:30 AM MACHINE PACKAGE SEALER Hypertension And Chronic Kidney Disease Stage 4 (HCC) SEDIMENTATION RATE, B Routine 01/16/2024 10:30 AM MACHINE PACKAGE SEALER Pericardial Disease (HCC) C-REACTIVE PROTEIN (CRP), S/P Routine 01/16/2024 10:30 AM MACHINE PACKAGE SEALER Pericardial Disease (HCC) documented in this encounter Results * CRP (C-Reactive Protein) (01/16/2024 10:30 AM MACHINE PACKAGE SEALER) C-Reactive Protein (CRP), P <3.0 <5.0 mg/L 01/16/2024 2:22 PM MACHINE PACKAGE SEALER OWAT Blood (Blood, Venous) 01/16/2024 10:30 AM MACHINE PACKAGE SEALER 01/16/2024 1:43 PM MACHINE PACKAGE SEALER Gudelia Soto M.D. LAB BLOOD ADD-ON Performing Organization Address City/[facility]/ZIP Co de Phone Number [facility] [address] [place] [address], [place] OWAT [facility] in [place] [address] [place] [address] * Sedimentation Rate (01/16/2024 10:30 AM MACHINE PACKAGE SEALER) Pathologist [facility] Sedimentation Rate, B 11 0 - 22 mm/1 h 01/16/2024 4:01 PM MACHINE PACKAGE SEALER AUST Blood (Blood, Venous) 01/16/2024 10:30 AM MACHINE PACKAGE SEALER 01/16/2024 3:33 PM MACHINE PACKAGE SEALER Gudelia Soto M.D. LAB BLOOD ADD-ON Performing Organization Address City/[facility]/ZIP Co de Phone Number [facility] [address] [place] [address], [place] AUST [facility] [address] [place] [address] * (ABNORMAL) Renal Function Panel (01/16/2024 10:30 AM MACHINE PACKAGE SEALER) Potassium, P 4.9 3.6 - 5.2 mmol/L 01/16/2024 2:22 PM MACHINE PACKAGE SEALER OWAT Sodium, P 140 135 - 145 mmol/L 01/16/2024 2:22 PM MACHINE PACKAGE SEALER OWAT Chloride, P 101 98 - 107 mmol/L 01/16/2024 2:22 PM MACHINE PACKAGE SEALER OWAT Bicarbonate, P 31(H) 22 - 29 mmol/L 01/16/2024 2:22 PM MACHINE PACKAGE SEALER OWAT Anion Gap, P 8 7 - 15 01/16/2024 2:22 PM MACHINE PACKAGE SEALER OWAT BUN (Blood Urea Nitrogen), P 41(H) 8 - 24 mg/dL 01/16/2024 2:22 PM MACHINE PACKAGE SEALER OWAT Creatinine 2.07(H) 0.74 - 1.35 mg/dL 01/16/2024 2:22 PM MACHINE PACKAGE SEALER OWAT Estimated GFR (eGFR) 34(L) >=60 mL/min/BSA 01/16/2024 2:22 PM MACHINE PACKAGE SEALER OWAT Comment: Estimated GFR calculated using the 2020 CKD_EPI creatinine equation. Calcium, Total, P 9.4 8.8 - 10.2 mg/dL 01/16/2024 2:22 PM MACHINE PACKAGE SEALER OWAT Glucose, P 142(H) 70 - 140 mg/dL 01/16/2024 2:22 PM MACHINE PACKAGE SEALER OWAT Albumin, P 3.6 3.5 - 5.0 g/dL 01/16/2024 2:22 PM MACHINE PACKAGE SEALER OWAT Phosphorus (Inorganic), P 3.9 2.5 - 4.5 mg/dL 01/16/2024 3:49 PM MACHINE PACKAGE SEALER AUST Blood (Blood, Venous) 01/16/2024 10:30 AM MACHINE PACKAGE SEALER 01/16/2024 1:43 PM MACHINE PACKAGE SEALER Narrative [facility] - 01/16/2024 3:49 PM MACHINE PACKAGE SEALER Specimen Information: Specimen ID: [id number] Specimen Type: Blood Specimen Collection Start Date: 01/16/2024 10:30 AM Specimen Received Date: 01/16/2024 ??1:43 PM Specimen ID: [id number] Specimen Type: Blood Specimen Collection Start Date: 01/16/2024 10:30 AM Specimen Received Date: 01/16/2024 ??3:33 PM Mare Seymour M.D., Ph.D. LAB BL OOD ADD-ON [facility] [address] [place] [address], [facility] OWAT [facility] in [address] [place] [address] [facility] [address] [place] [address] documented in this encounter Visit Diagnoses Diagnosis Hypertension And Chronic Kidney Disease Stage 4 Pericardial Disease (HCC) documented in this encounter Additional Health Concerns Assessment Noted Time PHQ-9 Depression Total Score: 1 09/10/20 23 2:06 PM CDT documented as of this encounter Care Teams Poultry Raiser Relationship Specialty Start Date End Date Kylah Crum M.D. [address] [place], [place] [address] [address] PCP - General Family Medicine 09/28/23 documented as of this encounter
--- OUTSIDE RECORDS SUMMARY | 2024-03-20 17:27 | XMS_ITS | Encounter Summary ---
Author Name Unknown Organization [facility] Address [address] [place] [address] Care Team Providers Care Blasting Cap Assembler Name Role Phone Kylah Crum M.D. Primary Care Provider [phone] Encounter Details Date Type Department Care Team (Latest Contact Info) Description 02/04/2024 10:49 AM CDT - 02/04/2024 11:59 PM CDT Hospital Encounter Department of Laboratory Medicine in [address] [phone] Mare Arauz M.D., Ph.D. [address] [place] [phone] Chronic Kidney Disease (CKD), Stage 3b Glomerular Filtration Rate (GFR) 30 To 44 (HCC) Discharge Disposition: Home or Self Care [...] your living situation today? I have a [facility] to live 08/29/2023 Sex and [...] per Anticoagulation Clinic 180 tablet 3 10/31/2023 colchicine (COLCRYS) 0.6 mg tablet Take 0.5 [...] taken in conjunction with 5mg tablets. Take 3qam03eqdc,7szc95ltui,7 hgc13debc,5rtr85kvzr,5m fq97zxbk,5bxe34mfzt,3mg v04wdnj,4hne36xfat,1mgx 14days.. 280 tablet 01/15/2024 03/18/2024 predniSONE (DELTASONE) [...] in conjunction with 1 mg tablets. Take 2djj43lwbn,3yma62csmh,7 dbl77vlyz,2zic54qjkr,5m to95rsux,0nsi74dxty,3mg j17xuua,4mzp46tgdz,1mgx 14days. 70 tablet 01/15/2024 03/18/2024 documented as of this encounter Plan of Treatment Not on file documented as of this encounter Procedures Procedure Name Priority Date/Time Associated Diagnosis Comments BASIC METABOLIC PANEL, S/P Routine 02/04/2024 10:56 AM CDT Chronic Kidney Disease (CKD), Stage 3b Glomerular Filtration Rate (GFR) 30 To 44 (HCC) documented in this encounter Results * (ABNORMAL) Basic Metabolic Panel (02/04/2024 [...] Seymour M.D., Ph.D. LAB BL OOD ADD-ON [facility] [address], [place] [address], [facility] [place] [address] [place] [address] documented in this encounter Visit Diagnoses Diagnosis Chronic Kidney Disease (CKD), Stage 3b Glomerular Filtration Rate (GFR) 30 To 44 (HCC) documented in this encounter Additional Health Concerns Assessment Noted Time PHQ-9 Depression Total Score: 1 09/10/20 2:06 PM CDT documented as of this encounter Care Teams Blasting Cap Assembler Relationship Specialty Start Date End Date Kylah Crum M.D. [address] [place] [phone] PCP - General Family Medicine 09/28/23 documented as of this encounter
--- OUTSIDE RECORDS SUMMARY | 2024-03-20 17:27 | XMS_ITS | Encounter Summary ---
Author Name Unknown Organization [facility] Address [address] [place] [address] Care Team Providers Care Tower Director Name Role Phone Kylah Crum M.D. Primary Care Provider Reason for Referral * Outpatient (Routine) - Closed Specialty Diagnoses / Procedures Referred By Chonac t Referred To Contact Diagnoses Stenosis Aortic Valve Acquired Procedures DX Chest AP or PA and Lateral 2 Views Gudelia Soto M.D. [address] [place] [address] [facility] Referral ID Status Reason Start Date Expiration Date Visits Re quested Visits Authorized [id number] Closed 12/14/2023 12/13/2024 1 1 EX OPERATOR Reason for Visit * Outpatient (Routine) - Closed Specialty Diagnoses / Procedures Referred By Contjackelin gimenez Referred To Contact Diagnoses Stenosis Aortic Valve Acquired Procedures DX Chest AP or PA and Lateral 2 Views uGdelia Soto M.D. [address] [place] [address] [facility] Referral ID Status Reason Start Date Expiration Date Visits Re quested Visits Authorized [id number] Closed 12/14/2023 12/13/2024 1 1 Encounter Details Date Type Department Care Team (Latest Contact Info) Description 12/24/2023 10:15 AM LASTEX OPERATOR - 12/24/2023 11:59 PM LASTEX OPERATOR Hospital Encounter Department of Radiology, [facility], in [place], [place] [address] [place] [phone] Gudelia Soto M.D. [address] [place] [address] Stenosis Aortic Valve Acquired Discharge Disposition: Home [...] tablet Take 2,000 mcg by mouth daily. metoprolol succinate (TOPROL-XL) 50 mg 24 hr [...] mouth daily. 30 tablet 2 12/24/2023 02/11/2024 ferrous sulfate 325 mg (65 mg iron) DR tablet Take 65 mg of iron by mouth daily. 01/01/2024 documented as of this encounter Plan of Treatment Not on file documented as of this encounter Procedures Procedure Name Priority Date/Time Associated Diagnosis Comments DX CHEST AP OR PA AND LATERAL 2 VIEWS RAD - Routine (most inpatients and all outpatients) 12/24/2023 10:42 AM LASTEX OPERATOR Stenosis Aortic Valve Acquired documented in this encounter Results * DX Chest AP or PA and Lateral 2 Views (12/24/2023 10:42 AM LASTEX OPERATOR) Anatomical Region Laterality Modality Chest, Thoracic RST LOS, Tho racic ARZ LOS, Thoracic FLA LOS N/A Digital Radiography Impressions 12/24/2023 12:00 PM LASTEX OPERATOR Small bilateral pleural effusions are decreased. Improved aeration of the left lung base with decreased previous probable subsegmental atelectasis. No new consolidation. No pneumothorax. Cardiac silhouette is mildly enlarged, unchanged. Prosthetic aortic valve. Intact sternotomy wires. Loop recorder in soft tissues of the anterior chest wall. Narrative 12/24/2023 12:00 PM LASTEX OPERATOR EXAM: ??DX CHEST AP OR PA AND [...] softtissues of the anterior chest wall. Gudelia [facility] PROCEDURES documented in this encounter Visit Diagnoses Diagnosis Stenosis Aortic Valve Acquired documented in this encounter Additional Health Concerns Assessment Noted Time PHQ-9 Depression Total Score: 1 09/10/20 2:06 PM CDT documented as of this encounter Care Teams Tower Director Relationship Specialty Start Date End Date Kylah Crum M.D. [address] [place] [phone] PCP - General Family Medicine 09/28/23 documented as of this encounter
--- OUTSIDE RECORDS SUMMARY | 2024-03-20 17:27 | XMS_ITS | Encounter Summary ---
Author Name Unknown Organization [facility] Address [address] [place] [address] Care Team Providers Care Addictions Counselor Assistant Name Role Phone Kylah Crum M.D. Primary Care Provider [phone] Encounter Details Date Type Department Care Team (Latest Contact Info) Description 12/26/2023 Clinical Communication Department of Cardiovascular Medicine in [place], [place] [address] [place] [address] Eneida Loya, RJarrettNJarrett [address] [place] [address] Social History Tobacco Use Types Packs/Day Years [...] documented as of this encounter Care Teams Addictions Counselor Assistant Relationship Specialty Start Date End Date Kylah Crum M.D. [address] [place] [phone] PCP - General Family Medicine 09/28/23 documented as of this encounter
--- OUTSIDE RECORDS SUMMARY | 2024-03-20 17:27 | XMS_ITS | Encounter Summary ---
Author Name Unknown Organization [facility] Address [address] [place] [address] Care Team Providers Care Realtime Court Reporter Name Role Phone Kylah Crum M.D. Primary Care Provider Reason for Visit * Reason Onset Date Comments Results 01/28/2024 [facility] Encounter Details Date Type Department Care Team (Latest Contact Info) Description 01/28/2024 Clinical Communication Department of Family Medicine, [facility], in [place], [place] [address] [place] [phone] Kylah Crum M.D. [address] [place] [address] Results ([facility]) Social History Tobacco Use Types Packs/Day Years [...] Telephone Encounter - Katya Brito, L.P.N. - 01/28/2024 11:02 AM CDT SUBJECTIVE CHIEF COMPLAINT / REASON FOR CALL Results ([facility]) PLAN The following information was provided: Returned callers phone call. No patient information provided. Caller stated she is trying to figureout who manages patient's INR results and [facility] received the patient's INR results. Caller also stated that she has been trying to contact patient and leaving messages however she finally had the patient return a phone call and patient stated his INR is managed with his provider in [employer]. Information/Education: patient/caller able to teach back The following references were used: none documented in this encounter Plan of Treatment Not on file documented as of this encounter Visit Diagnoses Not on filedocumented in this encounter Additional Health Concerns Assessment Noted Time PHQ-9 Depression Total Score: 1 09/10/20 23 2:06 PM CDT documented as of this encounter Care Teams Realtime Court Reporter Relationship Specialty Start Date End Date Kylah Crum M.D. NPVeda: [id number] [address] [place] [phone] PCP - General Family Medicine 09/28/23 documented as of this encounter
--- OUTSIDE RECORDS SUMMARY | 2024-03-20 17:27 | XMS_ITS | Encounter Summary ---
Author Name Unknown Organization [facility] Address [address] [place] [address] Care Team Providers Care Process Eng Name Role Phone Kylah Crum M.D. Primary Care Provider Reason for Referral * Outpatient (Routine) - Closed Specialty Diagnoses / Procedures Referred By Sebas gimenez Referred To Contact Diagnoses Stenosis Aortic Valve Acquired Procedures Echo Transthoracic (TTE) - Complex Valvular Heart Disease Gudelia Soto M.D. [address] [place] [address] [facility] Referral ID Status Reason Start Date Expiration Date Visits Re quested Visits Authorized [id number] Closed 12/14/2023 12/13/2024 1 1 UNITY SERVICE TECHNICIAN Reason for Visit * Outpatient (Routine) - Closed Specialty Diagnoses / Procedures Referred By Sebas gimenez Referred To Contact Diagnoses Stenosis Aortic Valve Acquired Procedures Echo Transthoracic (TTE) - Complex Valvular Heart Disease Gudelia Soto M.D. [address] [place] [address] [facility] Referral ID Status Reason Start Date Expiration Date Visits Re quested Visits Authorized [id number] Closed 12/14/2023 12/13/2024 1 1 Encounter Details Date Type Department Care Team (Latest Contact Info) Description 12/24/2023 7:30 AM COMMUNITY SERVICE TECHNICIAN - 12/24/2023 9:06 AM COMMUNITY SERVICE TECHNICIAN Hospital Encounter Department of Cardiovascular Diseases in [place], [place] [address] [place] [phone] Gudelia Soto M.D. [address] [place] [address] Stenosis Aortic Valve Acquired Discharge Disposition: Home [...] per Anticoagulation Clinic 180 tablet 3 10/31/2023 ferrous sulfate 325 mg (65 mg iron) DR tablet Take 65 mg of iron by mouth daily. 01/01/2024 documented as of this encounter Plan of Treatment Not on file documented as of this encounter Procedures Procedure Name Priority Date/Time Associated Diagnosis Comments (TTE) 2D LIMITED WITH COLOR AND DOPPLER Routine 12/24/2023 8:52 AM COMMUNITY SERVICE TECHNICIAN Stenosis Aortic Valve Acquired documented in this encounter Results * (TTE) 2D LIMITED WITH COLOR AND DOPPLER (12/24/2023 8:52 AM COMMUNITY SERVICE TECHNICIAN) Ejection Fraction 60 MC CV EIMS LV [...] Region Laterality Modality Echocardiography 12/24/2023 7:37 AM COMMUNITY SERVICE TECHNICIAN Impressions 12/24/2023 10:57 AM COMMUNITY SERVICE TECHNICIAN suggestive of pericardial disease. See comments. 2. Status post 23 mm On-X mechanical aortic valve prosthesis, CABG x1, PVI, and DAHIANA amputation (19-SEP-2023, [place]). 3. Normal left ventricular chamber size, calculated [...] CABG x1, PVI, and DAHIANA amputation (19-SEP-2023, [place]). Echocardiogram performed per left ventricular function protocol [...] the Order-Level Documents. Narrative 12/24/2023 10:57 AM COMMUNITY SERVICE TECHNICIAN For the complete report, see the Order-Level [...] prosthesis, CABG x1,PVI, and DAHIANA amputation (19-SEP-2023, [place]). 3. Normal left ventricular chamber size, calculated [...] prosthesis, CABG x1, PVI,and DAHIANA amputation (19-SEP-2023, [place]). Echocardiogram performed per leftventricular function protocol + [...] documented as of this encounter Care Teams Process Eng Relationship Specialty Start Date End Date Kylah Crum M.D. [address] [place] [phone] PCP - General Family Medicine 09/28/23 documented as of this encounter
--- OUTSIDE RECORDS SUMMARY | 2024-03-20 17:27 | XMS_ITS | Encounter Summary ---
Author Name Unknown Organization [facility] Address [address] [place] [address] Care Team Providers Care Suction Roller Name Role Phone Kylah Crum M.D. Primary Care Provider [phone] Reason for Visit * Appointment Request (Routine) - Closed Specialty Diagnoses / Procedures Referred By Sebas gimenez Referred To Contact Nephrology and Hypertension Referral ID Status Reason Start Date Expiration Date Visits Re quested Visits Authorized [id number] Closed 12/20/2023 12/19/2024 1 1 Encounter Details Date Type Department Care Team (Latest Contact Info) Description 01/01/2024 3:30 PM SNAKER DRIVING HORSES External Outreach Division of Nephrology and Hypertension in [place], [place] [address] [place] [address] Mare Arauz M.D., Ph.D. [address] [place] [address] Hypertension And Chronic Kidney Disease Stage 4 [...] Notes * Mare Arauz M.D., Ph.D. - 01/01/2024 3:30 PM CST PROGRESS NOTE SUBJECTIVE CHIEF COMPLAINT / REASON FOR VISIT Follow up CKD 3-4 management HISTORY OF PRESENT ILLNESS Jong Harris is a 73 y.o. male who is seen for follow up. He has history of CHF exacerbation developed after severe aortic stenosis, status post CABG, MAZE procedure, left atrial appendage ligation, mechanical aortic valve replacement on September 19, 2023. He has been seen by Dr. 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 She has started him on treatment with very low-dose colchicinegiven his low GFR (0.3 mg daily) along with the steroids taper. Overall he feels better after starting this treatment. His cough has resolved, his shortness of breath has significantly improved. His volume overload is also improving. Patient continues to monitor his weight. There has not been significant changes on his weight. His blood pressure remained stable. He continues to produce good urinary output as per his report. OBJECTIVE Nephro clinic vital signs PHYSICAL EXAMINATION Vitals reviewed. Constitutional Appearance: Normal [...] detail with patient. ASSESSMENT / PLAN #1 Hypertension And Chronic Kidney Disease Stage 4 (HCC) #2 CKD 4 due to CRS #3 Volume overload Patient returns for follow up. Laboratory workup shows stable creatinine. Close monitoring due to colchicine use. His symptoms have significantly improved with this therapy, he understands the risks to developed acute kidney injury associated with NSAIDs use. Chronic anemia, slowly improving after hospitalization. Volume management: For now, as his symptoms are stable, we will monitor. Continue same diuretic regimen with [id number] mg daily Continue low salt intake Daily weights and daily BP monitoring at home. Repeat labs in 3 weeks. Return visit in 3 months. Kay Seymour M.D., Ph.D. ER [employer] documented in this encounter Plan of Treatment Not on file documented as of this encounter Results * (ABNORMAL) Renal Function Panel (01/16/2024 10:30 AM [employer]) Potassium, P 4.9 3.6 - 5.2 mmol/L 01/16/2024 2:22 PM [employer] OWAT Sodium, P 140 135 - 145 mmol/L 01/16/2024 2:22 PM [employer]AT Chloride, P 101 98 - 107 mmol/L 01/16/2024 2:22 PM [employer] OWAT Bicarbonate, P 31(H) 22 - 29 mmol/L 01/16/2024 2:22 PM [employer] OWAT Anion Gap, P 8 7 - 15 01/16/2024 2:22 PM [employer] OWAT BUN (Blood Urea Nitrogen), P 41(H) 8 - 24 mg/dL 01/16/2024 2:22 PM [employer] OWAT Creatinine 2.07(H) 0.74 - 1.35 mg/dL 01/16/2024 2:22 PM [employer] OWAT Estimated GFR (eGFR) 34(L) >=60 mL/min/BSA 01/16/2024 2:22 PM [employer] OWAT Comment: Estimated GFR calculated using the 2020 CKD_EPI creatinine equation. Calcium, Total, P 9.4 8.8 - 10.2 mg/dL 01/16/2024 2:22 PM [employer]AT Glucose, P 142(H) 70 - 140 mg/dL 01/16/2024 2:22 PM [employer] OWAT Albumin, P 3.6 3.5 - 5.0 g/dL 01/16/2024 2:22 PM [employer]AT Phosphorus (Inorganic), P 3.9 2.5 - 4.5 mg/dL 01/16/2024 3:49 PM [employer] AUST Blood (Blood, Venous) 01/16/2024 10:30 AM [employer] 01/16/2024 1:43 PM [employer]ER [employer] Narrative [facility] - 01/16/2024 3:49 PM SNAKER DR[employer]ES Specimen Information: Specimen ID: [id number] Specimen Type: Blood Specimen Collection Start Date: 01/16/2024 10:30 AM Specimen Received Date: 01/16/2024 ??1:43 PM Specimen ID: [id number] Specimen Type: Blood Specimen Collection Start Date: 01/16/2024 10:30 AM Specimen Received Date: 01/16/2024 ??3:33 PM Mare Seymour M.D., Ph.D. LAB BL OOD ADD-ON [facility] [address] [place] [address], [facility] [place] [address] [place] [address] [facility] [address] [place] [address] documented in this encounter Visit Diagnoses Diagnosis Hypertension And Chronic Kidney Disease Stage 4- Primary Anemia In Chronic Kidney Disease Failure Renal Acute (Acute Kidney Injury) (HCC) Hypertension And Chronic Kidney Disease Stage 4 Pericardial Disease (HCC) documented in this encounter Additional Health Concerns Assessment Noted Time PHQ-9 Depression Total Score: 1 09/10/20 23 2:06 PM CDT documented as of this encounter Care Teams Suction Roller Relationship Specialty Start Date End Date Kylah Crum M.D. NPVeda: [id number] [address] [place] [phone] PCP - General Family Medicine 09/28/23 documented as of this encounter
--- OUTSIDE RECORDS SUMMARY | 2024-03-20 17:27 | XMS_ITS | Encounter Summary ---
Author Name Unknown Organization [facility] Address [address] [place] [address] Care Team Providers Care Curator Medical Museum Name Role Phone Kylah Crum M.D. Primary Care Provider [phone] Reason for Referral * MRI/CAT/PET Scan (Routine) - Closed Specialty Diagnoses / Procedures Referred By Sebas gimenez Referred To Contact Radiology Diagnoses Pericarditis Constrictive (HCC) Procedures MR Cardiac without and with IV Contrast Gudelia Soto M.D. [address] [place] [address] [facility] Referral ID Status Reason Start Date Expiration Date Visits Re quested Visits Authorized [id number] Closed 12/25/2023 01/24/2024 1 1 [place] ADVERTISING ACCOUNT EXECUTIVE Reason for Visit * MRI/CAT/PET Scan (Routine) - Closed Specialty Diagnoses / Procedures Referred By Sebas gimenez Referred To Contact Radiology Diagnoses Pericarditis Constrictive (HCC) Procedures MR Cardiac without and with IV Contrast Gudelia Soto M.D. [address] [place] [address] [facility] Referral ID Status Reason Start Date Expiration Date Visits Re quested Visits Authorized [id number] Closed 12/25/2023 01/24/2024 1 1 Encounter Details Date Type Department Care Team (Latest Contact Info) Description 12/25/2023 2:20 PM RETAIL ADVERTISING ACCOUNT EXECUTIVE - 12/25/2023 11:59 PM RETAIL ADVERTISING ACCOUNT EXECUTIVE Hospital Encounter Department of Radiology, [facility] in [place], [place] [address] [place] [address] Gudelia Soto M.D. [address] [place] [address] Pericarditis Constrictive (HCC) Discharge Disposition: Home or [...] living situation today? I have a [facility] place to live 08/29/2023 Sex and [...] (187 lb 13.3 oz) 12/25/2023 2:40 PM RETAIL ADVERTISING ACCOUNT EXECUTIVE Height 169.5 cm (5' 6.73) 12/25/2023 2:40 PM CS T Body Mass Index 29.66 12/25/2023 2:40 PM RETAIL ADVERTISING ACCOUNT EXECUTIVE documented in this encounter Medications at Time [...] inpatients and all outpatients) 12/25/2023 4:05 PM RETAIL ADVERTISING ACCOUNT EXECUTIVE Pericarditis Constrictive (HCC) documented in this encounter Results * MR Cardiac without and with IV Contrast (12/25/2023 4:05 PM RETAIL ADVERTISING ACCOUNT EXECUTIVE) Anatomical Region Laterality Modality Cardiac, Cardiovascular RST LOS, Thoracic ARZ LOS, Cardiovascular FLA LOS N/A Magnetic Resonance Impressions 12/25/2023 5:08 PM RETAIL ADVERTISING ACCOUNT EXECUTIVE 1. 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 2. ??Small fibrinous loculated pericardial effusion, predominantly along the lateral and inferior aspects of the left ventricle. 3. ??Normal biventricular chamber size and function. 4. ??Large bilateral pleural effusions. Small amount of abdominal ascites. Narrative 12/25/2023 5:08 PM RETAIL ADVERTISING ACCOUNT EXECUTIVE EXAM: ??MR CARDIAC WITHOUT AND WITH IV [...] the inferior RV insertion points (series 28, [id number]). RIGHT VENTRICLE: Normal right ventricular chamber size [...] mL not recommended. Given 12/25/2023 4:08 PM RETAIL ADVERTISING ACCOUNT EXECUTIVE 18 mL sodium chloride (PF) 0.9 % injection 1-100 mL 1-100 mL, intravenous, Once, On Sun12/25/23 at 1500, For 1 dose, Imaging Protocol Orders, Dose per Radiant Medication Guidelines Given 12/25/2023 4:08 PM RETAIL ADVERTISING ACCOUNT EXECUTIVE 20 mL documented in this encounter Additional Health Concerns Assessment Noted Time PHQ-9 Depression Total Score: 1 09/10/20 23 2:06 PM CDT documented as of this encounter Care Teams Curator Medical Museum Relationship Specialty Start Date End Date Kylah Crum M.D. [address] [place] [phone] PCP - General Family Medicine 09/28/23 documented as of this encounter
--- OUTSIDE RECORDS SUMMARY | 2024-03-20 17:27 | XMS_ITS | Encounter Summary ---
Author Name Unknown Organization [facility] Address [address] [place] [address] Care Team Providers Care Band Cutting Machine Operator Name Role Phone Kylah Crum M.D. Primary Care Provider Encounter Details Date Type Department Care Team (Latest Contact Info) Description 12/26/2023 Clinical Communication Department of Cardiovascular Medicine in [place], [place] [address] [place] [address] Eneida Loya, RJarrettNJarrett [address] [place] [address] Social History Tobacco Use Types Packs/Day Years [...] documented as of this encounter Care Teams Band Cutting Machine Operator Relationship Specialty Start Date End Date Kylah Crum M.D. [address] [place] [address] [place] [phone] PCP - General Family Medicine 09/28/23 documented as of this encounter
--- OUTSIDE RECORDS SUMMARY | 2024-03-20 17:27 | XMS_ITS | Encounter Summary ---
Author Name Unknown Organization [facility] Address [address] [place] [address] Care Team Providers Care Window Glazier Helper Name Role Phone Kylah Crum M.D. Primary Care Provider [phone] Encounter Details Date Type Department Care Team (Late st Contact Info) Description 01/15/2024 Orders Only [facility] Kylah Crum M.D. [address] [place] [phone] Diabetes Mellitus Type 2 (HCC) Social History [...] your living situation today? I have a [facility] place to live 08/29/2023 Sex and Gender Information Value Date Recorded Sex Assigned at Male 08/29/2023 11:06 AM CDT Gender Identity Male 08/29/2023 11:06 AM CDT Sexual Orientation Straight 08/29/2023 11 :06 AM CDT documented as of this encounter Plan of Treatment Not on file documented as of this encounter Visit Diagnoses Diagnosis Diabetes Mellitus Type 2 (HCC) documented in this encounter Additional Health Concerns Assessment Noted Time PHQ-9 Depression Total Score: 1 09/10/20 2:06 PM CDT documented as of this encounter Care Teams Window Glazier Helper Relationship Specialty Start Date End Date Kylah Crum M.D. [address] [place] [phone] PCP - General Family Medicine 09/28/23 documented as of this encounter
--- OUTSIDE RECORDS SUMMARY | 2024-03-20 17:27 | XMS_ITS | Encounter Summary ---
Author Name Unknown Organization [facility] Address [address] [place] [address] Care Team Providers Care Radiation Oncology Therapist Name Role Phone Kylah Crum M.D. Primary Care Provider Reason for Referral * MRI/CAT/PET Scan (Routine) - Closed Specialty Diagnoses / Procedures Referred By Contac t Referred To Contact Radiology Diagnoses Pericarditis Constrictive (HCC) Procedures MR Cardiac without and with IV Contrast Gudelia Soto M.D. [address] [place] [address] [facility] Referral ID Status Reason Start Date Expiration Date Visits Re quested Visits Authorized [id number] Closed 12/25/2023 01/24/2024 1 1 E PRACTITIONER ADULT Reason for Visit * Outpatient (Routine) - Closed Specialty Diagnoses / Procedures Referred By Contact Referred To Contact Cardiovascular Diseases / Cardiovascular Disease Diagnoses Stenosis Aortic Valve Acquired Mare Arauz M.D., Ph.D. [address] [place] [address] [facility] Referral ID Status Reason Start Date Expiration Date Visits Re quested Visits Authorized [id number] Closed 11/27/2023 11/26/2024 1 1 Encounter Details Date Type Department Care Team (Latest Contact Info) Description 12/24/2023 2:00 PM NURSE PRACTITIONER ADULT Comprehensive Visit Department of Cardiovascular Medicine in [place], [place] [address] [place] [phone] Gudelia Soto M.D. [address] [place] [address] Pericarditis Constrictive (HCC) (Primary Dx); Stenosis Aortic Valve Acquired; Atrial Fibrillation Paroxysmal (HCC); Coronary Artery Disease Without Angina Pectoris; Cardiac Surgery Status Post; Program Management Professional (Current) Anticoagulant Treatment; Bypass Coronary Artery Graft [...] Comments Blood Pressure 111/68 12/24/2023 1:40 PM NURSE PRACTITIONER ADULT Pulse 86 12/24/2023 1:40 PM NURSE PRACTITIONER ADULT Temperature - - Respiratory Rate - - Oxygen Saturation - - Inhaled Oxygen Concentration - - Weight - - Height - - Body Mass Index - - documented in this encounter Consult Notes * Gudelia Soto M.D. - 12/24/2023 2:00 PM CST REFERRAL SOURCE Mare Arauz M.D., Ph.D. [address] [place] [phone] CHIEF COMPLAINT / REASON FOR VISIT Post-AVR HISTORY OF PRESENT ILLNESS Mr. Harris is a 73 year old male who comes to the valvular heart disease clinic for follow-up of his recent mechanical aortic valve replacement in September of 2023. 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 He had been followed in [place] by primary care. He comes to see [...] has had 1 left lung thoracentesis at [place] back at the end of October. This [...] this was switched to torsemide by the epic radiant analyst at the end of October.It was 40 [...] CABG x1, PVI, and DAHIANA amputation (19-SEP-2023, [place]). 3. Normal left ventricular chamber size, calculated [...] Aortic Valve Acquired Gudelia Soto M.D. 12/24/2023 E PRACTITIONER ADULT documented in this encounter Plan of Treatment Not on file documented as of this encounter Procedures Procedure Name Priority Date/Time Associated Diagnosis Comments C-REACTIVE PROTEIN (CRP), S/P Routine 12/24/2023 9:44 AM NURSE PRACTITIONER ADULT Pericarditis Constrictive (HCC) SEDIMENTATION RATE, B Routine 12/24/2023 9:39 AM NURSE PRACTITIONER ADULT Pericarditis Constrictive (HCC) documented in this encounter Results * MR Cardiac without and with IV Contrast (12/25/2023 4:05 PM NURSE PRACTITIONER ADULT) Anatomical Region Laterality Modality Cardiac, Cardiovascular RST LOS, Thoracic ARZ LOS, Cardiovascular FLA LOS N/A Magnetic Resonance Impressions 12/25/2023 5:08 PM NURSE PRACTITIONER ADULT 1. 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 2. ??Small fibrinous loculated pericardial effusion, predominantly along the lateral and inferior aspects of the left ventricle. 3. ??Normal biventricular chamber size and function. 4. ??Large bilateral pleural effusions. Small amount of abdominal ascites. Narrative 12/25/2023 5:08 PM NURSE PRACTITIONER ADULT EXAM: ??MR CARDIAC WITHOUT AND WITH IV [...] the inferior RV insertion points (series 28, [id number]). RIGHT VENTRICLE: Normal right ventricular chamber size [...] pleural effusions. Small amount of abdominal ascites. Authorizing Provider Result Bakari Soto M.D. [facility] [place]ED[facility] * (ABNORMAL) CRP (C-Reactive Protein) (12/24/2023 9:44 AM NURSE PRACTITIONER ADULT) C-Reactive Protein (CRP), S 10.0(H) <5.0 mg/L 12/24/2023 3:48 PM NURSE PRACTITIONER ADULT DTL Blood (Blood, Venous) 12/24/2023 9:44 AM NURSE PRACTITIONER ADULT 12/24/2023 1:18 PM NURSE PRACTITIONER ADULT Gudelia Soto M.D. LAB BLOOD ADD-ON Performing Organization Address City/[facility]/ZIP Co de Phone Number [facility] [address] [place], [place] [address] [[email or web address] [address] [place] [address] * (ABNORMAL) Sedimentation Rate (12/24/2023 9:39 AM NURSE PRACTITIONER ADULT) Sedimentation Rate, B 29(H) 3 - 28 mm/h 12/24/2023 1:29 PM NURSE PRACTITIONER ADULT DTL Blood (Blood, Venous) 12/24/2023 9:39 AM NURSE PRACTITIONER ADULT 12/24/2023 12:40 PM NURSE PRACTITIONER ADULT Narrative Authorizing Provider Result Bakari Soto M.D. LAB BLOOD ADD-ON Performing Organization Address City/[facility]/ZIP Co de Phone Number [facility] [address] [place] [address], [place] [address] documented in this encounter Visit Diagnoses Diagnosis [...] documented as of this encounter Care Teams Radiation Oncology Therapist Relationship Specialty Start Date End Date Kylah Crum M.D. [address] [place] [phone] PCP - General Family Medicine 09/28/23 documented as of this encounter
--- OUTSIDE RECORDS SUMMARY | 2024-03-20 17:27 | XMS_ITS | Encounter Summary ---
Author Name Unknown Organization [facility] Address [address] [place] [address] Care Team Providers Care Motorcycle Technician Name Role Phone Kylah Crum M.D. Primary Care Provider Encounter Details Date Type Department Care Team (Latest Contact Info) Description 12/27/2023 Clinical Communication Department of Cardiovascular Medicine in [place], [place] [address] [place] [address] Eneida Loya, RJarrettNJarrett [address] [place] [address] Social History Tobacco Use Types Packs/Day Years [...] your living situation today? I have a [facility] place to live 08/29/2023 Sex and Gender Information Value Date Recorded Sex Assigned at Male 08/29/2023 11:06 AM CDT Gender Identity Male 08/29/2023 11:06 AM CDT Sexual Orientation Straight 08/29/2023 11 :06 AM CDT documented as of this encounter Miscellaneous Notes * Telephone Encounter - Eneida Loya R.N. - 12/27/2023 10:50 AM HEAD OF MATHEMATICS Information Discussed Phone call placed to Mr. [...] following references were used: nursing clinical judgement OF MATHEMATICS documented in this encounter Plan of Treatment Not on file documented as of this encounter Visit Diagnoses Not on filedocumented in this encounter Additional Health Concerns Assessment Noted Time PHQ-9 Depression Total Score: 1 09/10/20 23 2:06 PM CDT documented as of this encounter Care Teams Motorcycle Technician Relationship Specialty Start Date End Date Kylah Crum M.D. [address] [place] [phone] PCP - General Family Medicine 09/28/23 documented as of this encounter
--- OUTSIDE RECORDS SUMMARY | 2024-03-20 17:27 | XMS_ITS | Encounter Summary ---
Author Name Unknown Organization [facility] Address [address] [place] [id number] Care Team Providers Care Oracle Fusion Developer Name Role Phone Kylah Crum M.D. Primary Care Provider Encounter Details Date Type Department Care Team (Latest Contact Info) Description 12/24/2023 9:07 AM CFD ENGINEER - 12/24/2023 10:14 AM [facility] Hospital Encounter Department of Laboratory Medicine and Pathology, [facility] in [place], [place] [address] [place] [address] Gudelia Soto M.D. [address] [place] [address] Stenosis Aortic Valve Acquired Discharge Disposition: Home [...] LIPID PANEL, S Routine 12/24/2023 9:44 AM CFD ENGINEER Stenosis Aortic Valve Acquired NT-PRO B-TYPE NATRIURETIC PEPTIDE (BNP), S Routine 12/24/2023 9:44 AM CFD ENGINEER Stenosis Aortic Valve Acquired CBC WITH DIFFERENTIAL, B Routine 12/24/2023 9:44 AM CFD ENGINEER Stenosis Aortic Valve Acquired SODIUM, S/P Routine 12/24/2023 9:44 AM CFD ENGINEER Stenosis Aortic Valve Acquired POTASSIUM, S/P Routine 12/24/2023 9:44 AM CFD ENGINEER Stenosis Aortic Valve Acquired GLUCOSE, FASTING, S/P Routine 12/24/2023 9:44 AM CFD ENGINEER Stenosis Aortic Valve Acquired CREATININE WITH EGFR, S/P Routine 12/24/2023 9:44 AM CFD ENGINEER Stenosis Aortic Valve Acquired ALBUMIN, S/P Routine 12/24/2023 9:44 AM CFD ENGINEER Stenosis Aortic Valve Acquired PROTHROMBIN TIME (PT), P Routine 12/24/2023 9:43 AM CFD ENGINEER Stenosis Aortic Valve Acquired documented in this encounter Results * Sodium (12/24/2023 9:44 AM CFD ENGINEER) Sodium, S 143 135 - 145 mmol/L 12/24/2023 1:00 PM CFD ENGINEER DTL Blood (Blood, Venous) 12/24/2023 9:44 AM CFD ENGINEER 12/24/2023 10:18 AM CFD ENGINEER Gudelia Soto M.D. LAB BLOOD ADD-ON Performing Organization Address City/[facility]/ZIP Co de Phone Number [facility] [address] [place] [address] * Potassium (12/24/2023 9:44 AM CFD ENGINEER) Potassium, S 4.1 3.6 - 5.2 mmol/L 12/24/2023 1:00 PM CFD ENGINEER DTL Blood (Blood, Venous) 12/24/2023 9:44 AM CFD ENGINEER 12/24/2023 10:18 AM CFD ENGINEER Gudelia Soto M.D. LAB BLOOD ADD-ON [facility] [address] [place] [address], [facility] [address] [place] [address] * (ABNORMAL) NT-Pro B-Type Natriuretic Peptide (BNP) (12/24/2023 9:44 AM CFD ENGINEER) NT-Pro BNP 5208(H) <=540 pg/mL 12/24/2023 1:00 PM CFD ENGINEER DTL Comment: NT-proBNP values less than 300 [...] failure. Blood (Blood, Venous) 12/24/2023 9:44 AM CFD ENGINEER 12/24/2023 10:18 AM CFD ENGINEER Gudelia Soto M.D. LAB BLOOD ADD-ON [address] [address], [facility] 200 [place] [address] * Lipid Panel (12/24/2023 9:44 AM CFD ENGINEER) Pathologist [facility] Triglycerides 68 mg/dL 12/24/2023 1:00 PM CFD ENGINEER DTL Comment: ----REFERENCE VALUE---- Normal: <150 mg/dL Borderline High: 150-199 mg/dL High: 200-499 mg/dL Very High: > or =500 mg/dL Cholesterol, Total 107 mg/dL 2023 1:00 PM CFD ENGINEER DTL Comment: ----REFERENCE VALUE---- Desirable: < 200 mg/dL Borderline High: 200 - 239 mg/dL High: > or = 240 mg/dL Cholesterol, LDL, Calculated 50 mg/dL 12/24/2023 1:00 PM CFD ENGINEER DTL Comment: ----REFERENCE VALUE---- Desirable: <100 mg/dL Above Desirable: 100-129 mg/dL Borderline High: 130-159 mg/dL High: 160-189 mg/dL Very High: >=190 mg/dL ----ADDITIONAL INFORMATION---- LDL cholesterol calculated using the Iglesias/NIH equation. Cholesterol, HDL, S 42 >=40 mg/dL 12/24/2023 1:00 PM CFD ENGINEER DTL Cholesterol, Non-HDL, Calculated 65 mg/dL 12/24/2023 1:00 PM CFD ENGINEER DTL Comment: ----REFERENCE VALUE---- Desirable: <130 mg/dL Above Desirable: 130-159 mg/dL Borderline High: 160-189 mg/dL High: 190-219 mg/dL Very High: > or =220 mg/dL Fasting (8 HR or more) yes 12/24/2023 10:18 AM CFD ENGINEER DTL Blood (Blood, Venous) 12/24/2023 9:44 AM CFD ENGINEER 12/24/2023 10:18 AM CFD ENGINEER Gudelia Soto M.D. LAB BLOOD ADD-ON Performing Organization Address City/[facility]/ZIP Co de Phone Number [facility] [address] [facility] 200 [place] [address] * (ABNORMAL) Glucose, Fasting (12/24/2023 9:44 AM CFD ENGINEER) Glucose, P 112(H) 70 - 100 mg/dL 12/24/2023 10:58 AM CFD ENGINEER DTL Last Intake 15 hr 12/24/2023 10:22 AM CFD ENGINEER DTL Blood (Blood, Venous) 12/24/2023 9:44 AM CFD ENGINEER 12/24/2023 10:22 AM CFD ENGINEER Gudelia Soto M.D. LAB BLOOD NON ADD-ON Performing Organization Address [facility]/ZIP Co de Phone Number [facility] 200 [place] [address], [facility] [place] [address] * (ABNORMAL) Creatinine with Estimated GFR (12/24/2023 9:44 AM CFD ENGINEER) Creatinine 2.68(H) 0.74 - 1.35 mg/dL 12/24/2023 1:00 PM CFD ENGINEER DTL Estimated GFR (eGFR) 25(L) >=60 mL/min/BSA 12/24/2023 1:00 PM CFD ENGINEER DTL Comment: Estimated GFR calculated using the 2020 CKD_EPI creatinine equation. Blood (Blood, Venous) 12/24/2023 9:44 AM CFD ENGINEER 12/24/2023 10:18 AM CFD ENGINEER Gudelia Soto M.D. LAB BLOOD ADD-ON [facility] [address] [place] [address], [facility] DTL [facility] [address] [place] [address] * (ABNORMAL) CBC with Differential, Blood (12/24/2023 9:44 AM CFD ENGINEER) Hemoglobin 10.8(L) 13.2 - 16.6 g/dL 12/24/2023 10:39 AM CFD ENGINEER DTL Hematocrit 35.4(L) 38.3 - 48.6 % 12/24/2023 10:39 AM CFD ENGINEER DTL Erythrocytes 4.01(L) 4.35 - 5.65 x10(12)/L 12/24/2023 10:39 AM CFD ENGINEER DTL MCV 88.3 78.2 - 97.9 fL 12/24/2023 10:39 AM CFD ENGINEER DTL RBC Distrib Width 15.0(H) 11.8 - 14.5 % 12/24/2023 10:39 AM CFD ENGINEER DTL Platelet Count 187 135 - 317 x10(9)/L 12/24/2023 10:39 AM CFD ENGINEER DTL Leukocytes 5.5 3.4 - 9.6 x10(9)/L 12/24/2023 10:39 AM CFD ENGINEER DTL Neutrophils 3.96 1.56 - 6.45 x10(9)/L 12/24/2023 10:39 AM CFD ENGINEER DHPM Lymphocytes 0.90(L) 0.95 - 3.07 x10(9)/L 12/24/2023 10:39 AM CFD ENGINEER DTL Monocytes 0.56 0.26 - 0.81 x10(9)/L 12/24/2023 10:39 AM CFD ENGINEER DTL Eosinophils 0.07 0.03 - 0.48 x10(9)/L 12/24/2023 10:39 AM CFD ENGINEER DTL Basophils 0.03 0.01 - 0.08 x10(9)/L 12/24/2023 10:39 AM CFD ENGINEER DTL Blood (Blood, Venous) 12/24/2023 9:44 AM CFD ENGINEER 12/24/2023 10:07 AM CFD ENGINEER Gudelia Soto M.D. LAB BLOOD ADD-ON Performing Organization Address [facility] Co de Phone Number [facility] 200 [place] [address], [facility] 200 [place], [place] [id number] [place] [address] 200 [place] [address] * Albumin (12/24/2023 9:44 AM CFD ENGINEER) Albumin, S 3.7 3.5 - 5.0 g/dL 12/24/2023 1:00 PM CFD ENGINEER DTL Blood (Blood, Venous) 12/24/2023 9:44 AM CFD ENGINEER 12/24/2023 10:18 AM CFD ENGINEER Gudelia Soto M.D. LAB BLOOD ADD-ON Performing Organization Address [facility] Co de Phone Number [facility] 200 [place] [address], [facility] 200 [place] [address] * (ABNORMAL) Prothrombin Time (PT) (12/24/2023 9:43 AM CFD ENGINEER) Prothrombin Time, P 31.8(H) 9.4 - 12.5 sec 12/24/2023 10:34 AM CFD ENGINEER DTL INR 2.8 0.9 - 1.1 12/24/2023 10:34 AM CFD ENGINEER DTL Comment: ----ADDITIONAL INFORMATION---- Standard intensity warfarin therapeutic range: 2.0 to 3.0 ?? High intensity warfarin therapeutic range: 2.5 to 3.5 Blood (Blood, Venous) 12/24/2023 9:43 AM CFD ENGINEER 12/24/2023 10:08 AM CFD ENGINEER Gudelia Soto M.D. LAB BLOOD ADD-ON [facility] [address] [place] [address], [facility] [address] [place] [address] documented in this encounter Visit Diagnoses Diagnosis Stenosis Aortic Valve Acquired documented in this encounter Additional Health Concerns Assessment Noted Time PHQ-9 Depression Total Score: 1 09/10/20 23 2:06 PM CDT documented as of this encounter Care Teams Oracle Fusion Developer Relationship Specialty Start Date End Date Kylah Crum M.D. [address] [place] [phone] PCP - General Family Medicine 09/28/23 documented as of this encounter
--- OUTSIDE RECORDS SUMMARY | 2024-03-20 17:27 | XMS_ITS | Encounter Summary ---
Author Name Unknown Organization [facility] Address [address] [place] [address] Care Team Providers Care Deputy Coroner Investigator Name Role Phone Kylah Crum M.D. Primary Care Provider [phone] Encounter Details Date Type Department Care Team (Latest Contact Info) Description 01/15/2024 Clinical Communication Department of Cardiovascular Medicine in [place], [place] [address] [place] [address] Eneida Loya, RJarrettNJarrett [address] [place] [address] Social History Tobacco Use Types Packs/Day Years [...] living situation today? I have a [facility] place to live 08/29/2023 Sex and Gender Information Value Date Recorded Sex Assigned at Male 08/29/2023 11:06 AM CDT Gender Identity Male 08/29/2023 11:06 AM CDT Sexual Orientation Straight 08/29/2023 11 :06 AM CDT documented as of this encounter Plan of Treatment Scheduled Orders Name Type Priority Associated Diagnoses Orde r Schedule CRP (C-Reactive Protein) Lab Routine Pericardial Disease (HCC) 10 Occurrences starting 01/15/2024 until 04/16/2025 Sedimentation Rate Lab Routine Pericardial Disease (HCC) 10 Occurrences starting 01/15/2024 until 04/16/2025 documented as of this encounter Visit Diagnoses Diagnosis Pericardial Disease (HCC)- Primary documented in this encounter Additional Health Concerns Assessment Noted Time PHQ-9 Depression Total Score: 1 09/10/20 2:06 PM CDT documented as of this encounter Care Teams Deputy Coroner Investigator Relationship Specialty Start Date End Date Kylah Crum M.D. [address] [place] [address] [place] [address] PCP - General Family Medicine 09/28/23 documented as of this encounter
--- OUTSIDE RECORDS SUMMARY | 2024-03-20 17:27 | XMS_ITS | Encounter Summary ---
Author Name Unknown Organization [facility] Address [address] [place] [address] Care Team Providers Care Kinesiology Professor Name Role Phone Kylah Crum M.D. Primary Care Provider Encounter Details Date Type Department Care Team (Late st Contact Info) Description 02/01/2024 Orders Only Division of Nephrology and Hypertension in [place], [place] [address] [place] [address] Mare Arauz M.D., Ph.D. [address] [place] [address] Chronic Kidney Disease (CKD), Stage 3b Glomerular Filtration Rate (GFR) 30 To 44 (HCC) (Primary Dx) Social History Tobacco Use [...] Seymour M.D., Ph.D. LAB BL OOD ADD-ON [facility] [address] [place] [address], [facility] in [place] [address] [place] [address] documented in this encounter Visit Diagnoses Diagnosis Chronic Kidney Disease (CKD), Stage 3b Glomerular Filtration Rate (GFR) 30 To 44 (HCC)- Primary documented in this encounter Additional Health Concerns Assessment Noted Time PHQ-9 Depression Total Score: 1 09/10/20 2:06 PM CDT documented as of this encounter Care Teams Kinesiology Professor Relationship Specialty Start Date End Date Kylah Crum M.D. [address] [place] [phone] PCP - General Family Medicine 09/28/23 documented as of this encounter
--- OUTSIDE RECORDS SUMMARY | 2024-03-20 17:27 | XMS_ITS | Encounter Summary ---
Author Name Unknown Organization [facility] Address [address] [place] [address] Care Team Providers Care Operators School Manager Name Role Phone Kylah Crum M.D. Primary Care Provider [phone] Reason for Visit * Reason Onset Date Comments Schedule Echo 12/2412/14/2023 NEW Encounter Details Date Type Department Care Team (Latest Contact Info) Description 12/14/2023 Clinical Communication Department of Cardiovascular Medicine in [place], [place] [address] [place] [address] Gudelia Soto M.D. [address] [place] [address] Schedule Echo 12/24 (NEW) Social History Tobacco [...] situation today? I have a [facility] place to live 08/29/2023 Sex and Gender Information Value Date Recorded Sex Assigned at Male 08/29/2023 11:06 AM CDT Gender Identity Male 08/29/2023 11:06 AM CDT Sexual Orientation Straight 08/29/2023 11 :06 AM CDT documented as of this encounter Miscellaneous Notes * Telephone Encounter - Sarah Lynn - 12/21/2023 8:42 AM TANGLED YARN SPOOL STRAIGHTENER Confirmed with pt. LED YARN SPOOL STRAIGHTENER documented in this encounter Plan of Treatment Not on file documented as of this encounter Visit Diagnoses Not on filedocumented in this encounter Additional Health Concerns Assessment Noted Time PHQ-9 Depression Total Score: 1 09/10/20 2:06 PM CDT documented as of this encounter Care Teams Operators School Manager Relationship Specialty Start Date End Date Kylah Crum M.D. NPI: [id number] [place] [address] [place] [phone] PCP - General Family Medicine 09/28/23 documented as of this encounter
--- OUTSIDE RECORDS SUMMARY | 2024-03-20 17:28 | XMS_ITS | Encounter Summary ---
Author Name Unknown Organization [facility] Address [address] [place] [id number] Care Team Providers Care Sports Equipment Repairer Name Role Phone Kylah Crum M.D. Primary Care Provider Reason for Referral * Outpatient (Routine) - Closed Specialty Diagnoses / Procedures Referred By Contac t Referred To Contact Diagnoses Stenosis Aortic Valve Acquired Procedures Echo Transthoracic (TTE) - Complex Valvular Heart Disease Gudelia Soto M.D. 200 [place] [address] [facility] Referral ID Status Reason Start Date Expiration Date Visits Re quested Visits Authorized [id number] Closed 12/14/2023 12/13/2024 1 1 LEASING AGENT * Outpatient (Routine) - Closed Specialty Diagnoses / Procedures Referred By Contac t Referred To Contact Diagnoses Stenosis Aortic Valve Acquired Procedures ECG 12 Lead Gudelia Soto M.D. [address] [place] [address] [facility] Referral ID Status Reason Start Date Expiration Date Visits Re quested Visits Authorized [id number] Closed 12/14/2023 12/13/2024 1 1 LEASING AGENT * Outpatient (Routine) - Closed Specialty Diagnoses / Procedures Referred By Contac t Referred To Contact Diagnoses Stenosis Aortic Valve Acquired Procedures DX Chest AP or PA and Lateral 2 Views Gudelia Soto M.D. [address] [place] [address] [facility] Referral ID Status Reason Start Date Expiration Date Visits Re quested Visits Authorized [id number] Closed 12/14/2023 12/13/2024 1 1 LEASING AGENT Encounter Details Date Type Department Care Team (Late st Contact Info) Description 11/30/2023 Orders Only Department of Cardiovascular Medicine in [place], [place] [address] [place] [address] Gudelia Soto M.D. [address] [place] [phone] Stenosis Aortic Valve Acquired (Primary Dx) Social [...] and Lateral 2 Views (12/24/2023 10:42 AM SITE LEASING AGENT) Anatomical Region Laterality Modality Chest, Thoracic RST LOS, Tho racic ARZ LOS, Thoracic FLA LOS N/A Digital Radiography Impressions 12/24/2023 12:00 PM SITE LEASING AGENT Small bilateral pleural effusions are decreased. Improved aeration of the left lung base with decreased previous probable subsegmental atelectasis. No new consolidation. No pneumothorax. Cardiac silhouette is mildly enlarged, unchanged. Prosthetic aortic valve. Intact sternotomy wires. Loop recorder in soft tissues of the anterior chest wall. Narrative 12/24/2023 12:00 PM SITE LEASING AGENT EXAM: ??DX CHEST AP OR PA AND [...] * ECG 12 Lead (12/24/2023 10:12 AM SITE LEASING AGENT) Ventricular Rate ECG/Min 83 BPM MUSE FL Interval 138 ms MUSE QRSD Interval 76 ms MUSE QT Interval 400 ms MUSE QTC Interval 470 ms MUSE P [place] 55 degrees MUSE R [place] 61 degrees MUSE T Wave [place] 49 degrees MUSE 12/24/2023 10:1 2 AM SITE LEASING AGENT 12/24/2023 10:21 AM SITE LEASING AGENT Impressions MUSE - 12/24/2023 10:21 AM SITE LEASING AGENT Poor data quality Normal sinus rhythm Low [...] MUSE NA * Sodium (12/24/2023 9:44 AM SITE LEASING AGENT) Sodium, S 143 135 - 145 mmol/L 12/24/2023 1:00 PM SITE LEASING AGENT DTL Blood (Blood, Venous) 12/24/2023 9:44 AM SITE LEASING AGENT 12/24/2023 10:18 AM SITE LEASING AGENT Narrative Authorizing Provider Result Bakari Soto M.D. LAB BLOOD ADD-ON Performing Organization Address City/[facility]/ZIP Co de Phone Number [facility] [address] [facility] 200 [place] [address] * Potassium (12/24/2023 9:44 AM SITE LEASING AGENT) Potassium, S 4.1 3.6 - 5.2 mmol/L 12/24/2023 1:00 PM SITE LEASING AGENT DTL Blood (Blood, Venous) 12/24/2023 9:44 AM SITE LEASING AGENT 12/24/2023 10:18 AM SITE LEASING AGENT Gudelia Soto M.D. LAB BLOOD ADD-ON Performing Organization Address [facility] de Phone Number [facility] [address] 200 [place] [address] * (ABNORMAL) NT-Pro B-Type Natriuretic Peptide (BNP) (12/24/2023 9:44 AM SITE LEASING AGENT) Pathologist [facility] NT-Pro BNP 5208(H) <=540 pg/mL 12/24/2023 1:00 PM SITE LEASING AGENT DTL Comment: NT-proBNP values less than 300 [...] failure. Blood (Blood, Venous) 12/24/2023 9:44 AM SITE LEASING AGENT 12/24/2023 10:18 AM SITE LEASING AGENT Gudelia Soto M.D. LAB BLOOD ADD-ON Performing Organization Address City/[facility]/ZIP Co de Phone Number [facility] 200 [place] [address], [facility] DTL [facility] 200 [place] [address] * Lipid Panel (12/24/2023 9:44 AM SITE LEASING AGENT) Triglycerides 68 mg/dL 12/24/2023 1:00 PM SITE LEASING AGENT DTL Comment: ----REFERENCE VALUE---- Normal: <150 mg/dL Borderline High: 150-199 mg/dL High: 200-499 mg/dL Very High: > or =500 mg/dL Cholesterol, Total 107 mg/dL 2023 1:00 PM SITE LEASING AGENT DTL Comment: ----REFERENCE VALUE---- Desirable: < 200 mg/dL Borderline High: 200 - 239 mg/dL High: > or = 240 mg/dL Cholesterol, LDL, Calculated 50 mg/dL 12/24/2023 1:00 PM SITE LEASING AGENT DTL Comment: ----REFERENCE VALUE---- Desirable: <100 mg/dL Above Desirable: 100-129 mg/dL Borderline High: 130-159 mg/dL High: 160-189 mg/dL Very High: >=190 mg/dL ----ADDITIONAL INFORMATION---- LDL cholesterol calculated using the Iglesias/NIH equation. Cholesterol, HDL, S 42 >=40 mg/dL 12/24/2023 1:00 PM SITE LEASING AGENT DTL Cholesterol, Non-HDL, Calculated 65 mg/dL 12/24/2023 1:00 PM SITE LEASING AGENT DTL Comment: ----REFERENCE VALUE---- Desirable: <130 mg/dL Above Desirable: 130-159 mg/dL Borderline High: 160-189 mg/dL High: 190-219 mg/dL Very High: > or =220 mg/dL Fasting (8 HR or more) yes 12/24/2023 10:18 AM SITE LEASING AGENT DTL Blood (Blood, Venous) 12/24/2023 9:44 AM SITE LEASING AGENT 12/24/2023 10:18 AM SITE LEASING AGENT Gudelia Soto M.D. LAB BLOOD ADD-ON [facility] 200 [place], [place] [id number] [place] [address] [facility] 200 [place] [address] * (ABNORMAL) Glucose, Fasting (12/24/2023 9:44 AM SITE LEASING AGENT) Glucose, P 112(H) 70 - 100 mg/dL 12/24/2023 10:58 AM SITE LEASING AGENT DTL Last Intake 15 hr 12/24/2023 10:22 AM SITE LEASING AGENT DTL Blood (Blood, Venous) 12/24/2023 9:44 AM SITE LEASING AGENT 12/24/2023 10:22 AM SITE LEASING AGENT Gudelia Soto M.D. LAB BLOOD NON ADD-ON [facility] 200 [place], [place] [address] [address] [place] [address] * (ABNORMAL) Creatinine with Estimated GFR (12/24/2023 9:44 AM SITE LEASING AGENT) Creatinine 2.68(H) 0.74 - 1.35 mg/dL 12/24/2023 1:00 PM SITE LEASING AGENT DTL Estimated GFR (eGFR) 25(L) >=60 mL/min/BSA 12/24/2023 1:00 PM SITE LEASING AGENT DTL Comment: Estimated GFR calculated using the 2020 CKD_EPI creatinine equation. Blood (Blood, Venous) 12/24/2023 9:44 AM SITE LEASING AGENT 12/24/2023 10:18 AM SITE LEASING AGENT Gudelia Soto M.D. LAB BLOOD ADD-ON [facility] 200 [place], [place] [phone] [place] [address] 200 [place] [address] * (ABNORMAL) CBC with Differential, Blood (12/24/2023 9:44 AM SITE LEASING AGENT) Hemoglobin 10.8(L) 13.2 - 16.6 g/dL 12/24/2023 10:39 AM SITE LEASING AGENT DTL Hematocrit 35.4(L) 38.3 - 48.6 % 12/24/2023 10:39 AM SITE LEASING AGENT DTL Erythrocytes 4.01(L) 4.35 - 5.65 x10(12)/L 12/24/2023 10:39 AM SITE LEASING AGENT DTL MCV 88.3 78.2 - 97.9 fL 12/24/2023 10:39 AM SITE LEASING AGENT DTL RBC Distrib Width 15.0(H) 11.8 - 14.5 % 12/24/2023 10:39 AM SITE LEASING AGENT DTL Platelet Count 187 135 - 317 x10(9)/L 12/24/2023 10:39 AM SITE LEASING AGENT DTL Leukocytes 5.5 3.4 - 9.6 x10(9)/L 12/24/2023 10:39 AM SITE LEASING AGENT DTL Neutrophils 3.96 1.56 - 6.45 x10(9)/L 12/24/2023 10:39 AM SITE LEASING AGENT DHPM Lymphocytes 0.90(L) 0.95 - 3.07 x10(9)/L 12/24/2023 10:39 AM SITE LEASING AGENT DTL Monocytes 0.56 0.26 - 0.81 x10(9)/L 12/24/2023 10:39 AM SITE LEASING AGENT DTL Eosinophils 0.07 0.03 - 0.48 x10(9)/L 12/24/2023 10:39 AM SITE LEASING AGENT DTL Basophils 0.03 0.01 - 0.08 x10(9)/L 12/24/2023 10:39 AM SITE LEASING AGENT DTL Blood (Blood, Venous) 12/24/2023 9:44 AM SITE LEASING AGENT 12/24/2023 10:07 AM SITE LEASING AGENT Gudelia Soto M.D. LAB BLOOD ADD-ON [facility] [address] [place] [address], [facility] DTL [facility] [address] [place] [address] [facility] [address] [place] [address] * Albumin (12/24/2023 9:44 AM SITE LEASING AGENT) [facility] Albumin, S 3.7 3.5 - 5.0 g/dL 12/24/2023 1:00 PM SITE LEASING AGENT DTL Blood (Blood, Venous) 12/24/2023 9:44 AM SITE LEASING AGENT 12/24/2023 10:18 AM SITE LEASING AGENT Gudelia Soto M.D. LAB BLOOD ADD-ON [facility] [address] [place] [address], [facility] [address] [place] [address] * (ABNORMAL) Prothrombin Time (PT) (12/24/2023 9:43 AM SITE LEASING AGENT) [facility] Prothrombin Time, P 31.8(H) 9.4 - 12.5 sec 12/24/2023 10:34 AM SITE LEASING AGENT DTL INR 2.8 0.9 - 1.1 12/24/2023 10:34 AM SITE LEASING AGENT DTL Comment: ----ADDITIONAL INFORMATION---- Standard intensity warfarin therapeutic range: 2.0 to 3.0 ?? High intensity warfarin therapeutic range: 2.5 to 3.5 Blood (Blood, Venous) 12/24/2023 9:43 AM SITE LEASING AGENT 12/24/2023 10:08 AM SITE LEASING AGENT Gudelia Soto M.D. LAB BLOOD ADD-ON [facility] [address] [place] [address], [facility] [address] [place] [address] * (TTE) 2D LIMITED WITH COLOR AND DOPPLER (12/24/2023 8:52 AM SITE LEASING AGENT) [facility] Ejection Fraction 60 MC CV EIMS LV [...] Region Laterality Modality Echocardiography 12/24/2023 7:37 AM SITE LEASING AGENT Impressions 12/24/2023 10:57 AM SITE LEASING AGENT suggestive of pericardial disease. See comments. 2. 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 3. Normal left ventricular chamber size, calculated [...] CABG x1, PVI, and DAHIANA amputation (19-SEP-2023, [facility]). Echocardiogram performed per left ventricular function protocol [...] the Order-Level Documents. Narrative 12/24/2023 10:57 AM SITE LEASING AGENT For the complete report, see the Order-Level [...] prosthesis, CABG x1,PVI, and DAHIANA amputation (19-SEP-2023, [facility]). 3. Normal left ventricular chamber size, calculated [...] prosthesis, CABG x1, PVI,and DAHIANA amputation (19-SEP-2023, [facility]). Echocardiogram performed per leftventricular function protocol + [...] as of this encounter Care Teams Sports Equipment Repairer Relationship Specialty Start Date End Date Kylah Crum M.D. [address] [place] [phone] PCP - General Family Medicine 09/28/23 documented as of this encounter
--- OUTSIDE RECORDS SUMMARY | 2024-03-20 17:28 | XMS_ITS | Clinical Summary ---
Author Name Unknown Organization [facility] Address [place], [place] [address] Care Team Providers Care Tactical Response Group Officer Name Role Phone StuKylah ruano Staceymodesta [facility] Primary Care Provider Medications No known medications Encounters Date Type Department Care Team Description 02/20/2024 11:08 AM CDT - 02/20/2024 11:59 PM CDT Hospital Encounter [address] [address] 02/20/2024 Travel 02/18/2024 11:14 AM CDT - 02/18/2024 11:59 PM CDT Hospital Encounter [address] [address] 02/18/2024 Travel 02/15/2024 11:16 AM CDT - 02/15/2024 11:59 PM CDT Hospital Encounter [address] [address] 02/15/2024 Travel 02/13/2024 11:10 AM CDT - 02/13/2024 11:59 PM CDT Hospital Encounter [address] [address] 02/13/2024 Travel 02/11/2024 11:15 AM CDT - 02/11/2024 11:59 PM CDT Hospital Encounter [address] [address] 02/11/2024 Travel 02/08/2024 11:13 AM CDT - 02/08/2024 11:59 PM CDT Hospital Encounter [facility] 200 [facility] [place] [address] 02/08/2024 Travel 02/06/2024 11:13 AM CDT - 02/06/2024 11:59 PM CDT Hospital Encounter [facility] 200 [facility] [place] [address] 02/06/2024 Travel 02/04/2024 10:59 AM CDT - 02/04/2024 11:59 PM CDT Hospital Encounter [facility] [place] [address] 02/04/2024 Travel 02/01/2024 11:13 AM CDT - 02/01/2024 11:59 PM CDT Hospital Encounter [facility] 200 [place] [address] 02/01/2024 Travel 01/30/2024 11:11 AM CDT - 01/30/2024 11:59 PM CDT Hospital Encounter [facility] 200 [facility] [place] [address] 01/30/2024 Travel 01/28/2024 11:17 AM CDT - 01/28/2024 11:59 PM CDT Hospital Encounter [facility] [place] [facility] [place] [address] 01/28/2024 Travel 01/25/2024 11:26 AM CDT - 01/25/2024 11:59 PM CDT Hospital Encounter [facility] [facility] [place] [address] 01/25/2024 Travel 01/23/2024 11:22 AM CDT - 01/23/2024 11:59 PM CDT Hospital Encounter [facility] [place] [address] Yadira Ashton MD 01/23/2024 Travel 01/18/2024 11:22 AM [employer] - 01/18/2024 11:59 PM [employer] Hospital Encounter [facility] 200 [facility] [place] [address] Yadira Ashton MD 01/18/2024 Travel 01/16/2024 10:47 AM [employer] - 01/16/2024 11:59 PM [employer] Hospital Encounter [facility] [address] [place] [address] Yadira Ashton MD 01/16/2024 Travel 01/14/2024 11:24 AM [employer] - 01/14/2024 11:59 PM [employer] Hospital Encounter [facility] [address] [place] [address] Yadira Ashton MD 01/14/2024 Travel 01/11/2024 11:13 AM [employer] - 01/11/2024 11:59 PM [employer] Hospital Encounter [facility] [address] [place] [address] Yadira Ashton MD 01/11/2024 Travel 01/09/2024 11:18 AM [employer] - 01/09/2024 11:59 PM [employer] Hospital Encounter [facility] [address] [place] [address] Yadira Ashton MD 01/09/2024 Travel 01/07/2024 11:05 AM [employer] - 01/07/2024 11:59 PM [employer] Hospital Encounter [facility] [address] [place] [address] Yadira Ashton MD 01/07/2024 Travel 01/04/2024 11:07 AM [employer] - 01/04/2024 11:59 PM [employer] Hospital Encounter [facility] 200 [facility] [place] [address] Yadira Ashton MD 01/04/2024 Travel 01/02/2024 11:23 AM [employer] - 01/02/2024 11:59 PM [employer] Hospital Encounter [facility] [address] [place] [address] Yadira Ashton MD 01/02/2024 Travel 12/31/2023 11:16 AM [employer] - 12/31/2023 11:59 PM [employer] Hospital Encounter [facility] 200 [facility] [place] [address] Yadira Ashton MD 12/31/2023 Travel 12/28/2023 11:14 AM [employer] - 12/28/2023 11:59 PM [employer] Hospital Encounter [facility] [address] [place] [address] Yadira Ashton MD 12/28/2023 Travel 12/21/2023 11:10 AM [employer] - 12/21/2023 11:59 PM [employer] Hospital Encounter [facility] [address] [place] [address] Yadira Ashton MD 12/21/2023 Travel from Last 3 Months Social History Tobacco Use Types Packs/Day Years Used Date Smoking Tobacco: Never Assessed Sex and Gender Information Value Date Recorded Sex Assigned at Not on file Gender Identity Not on file Sexual Orientation Not on file Obstetrics History Last Filed Vital Signs Vital Sign Reading Time Taken Comments Blood Pressure 107/69 10/03/2023 4:23 PM [employer] Pulse 84 10/03/2023 4:23 PM [employer] Temperature 36.8 ??C (98.2 ??F) 10/03/2023 3:16 PM CS T Respiratory Rate 20 10/03/2023 3:16 PM [employer] Oxygen Saturation 98% 10/03/2023 4:23 PM [employer] Inhaled Oxygen Concentration - - Weight 90.7 kg (200 lb) 10/03/2023 3:08 PM [employer] Height 172.7 cm (5' 8) 10/03/2023 3:08 PM [employer] Body Mass Index 30.41 10/03/2023 3:08 PM [employer] Plan of Treatment Health Maintenance Due Date Last Done Comments Tdap 1961 Depression screening for age 12+ [...] 65+ (1 of 1 - PCV) 017 COVID-19 vaccine series (1 - 2022-24 season) 3 Influenza for age 65+ 07/13/2024 Procedures Procedure Name Priority Date/Time Associated Diagnosis Comments SCAN-CARDIAC REHABILITATION 02/20/2024 11:13 AM CDT SCAN-CARDIAC REHABILITATION 02/18/2024 11:21 AM CDT SCAN-CARDIAC REHABILITATION 02/15/2024 11:23 AM CDT SCAN-CARDIAC REHABILITATION 02/13/2024 11:19 AM CDT SCAN-CARDIAC REHABILITATION 02/11/2024 11:23 AM CDT SCAN-CARDIAC REHABILITATION 02/08/2024 11:20 AM CDT SCAN-CARDIAC REHABILITATION 02/06/2024 11:22 AM CDT SCAN-CARDIAC REHABILITATION 02/04/2024 11:12 AM CDT SCAN-CARDIAC REHABILITATION 02/01/2024 11:20 AM CDT SCAN-CARDIAC REHABILITATION 01/30/2024 11:17 AM CDT SCAN-CARDIAC REHABILITATION 01/28/2024 11:22 AM CDT SCAN-CARDIAC REHABILITATION 01/25/2024 11:21 AM CDT SCAN-CARDIAC REHABILITATION 01/23/2024 11:26 AM CDT SCAN-CARDIAC REHABILITATION 01/18/2024 11:27 AM GM[employer] SCAN-CARDIAC REHABILITATION 01/16/2024 11:05 AM GM[employer] SCAN-CARDIAC REHABILITATION 01/14/2024 11:27 AM GM[employer] SCAN-CARDIAC REHABILITATION 01/11/2024 11:22 AM GM/[employer]P [employer] SCAN-CARDIAC REHABILITATION 01/09/2024 11:25 AM GM/[employer]P [employer] PUBL[employer] SCAN-CARDIAC REHABILITATION 01/07/2024 11:11 AM GM/[employer] SCAN-CARDIAC REHABILITATION 01/04/2024 11:14 AM GM/[employer] SCAN-CARDIAC REHABILITATION 01/02/2024 11:27 AM GM/[employer] SCAN-CARDIAC REHABILITATION 12/31/2023 11:21 AM GM/[employer] SCAN-CARDIAC REHABILITATION 12/28/2023 11:22 AM GM/[employer] SCAN-CARDIAC REHABILITATION 12/21/2023 11:21 AM GM[employer] from Last 3 Months Results * SCAN-CARDIAC REHABILITATION (02/20/2024 11:13 AM CDT) Only the most recent of24 resultswithin the time period is included. Scanner OTHER from Last 3 Months Care Teams Tactical Response Group Officer Relationship Specialty Start Date End Date Kylah Crum MBBS [address] [place] [phone] PCP - General Family Practice 10/03/23
--- OUTSIDE RECORDS SUMMARY | 2024-03-20 17:28 | XMS_ITS | Encounter Summary ---
Author Name Unknown Organization [facility] Address [address] [place] [address] Care Team Providers Care Licensed Loan Officer Assistant Name Role Phone Kylah Crum M.D. Primary Care Provider Reason for Referral * Outpatient (Routine) - Closed Specialty Diagnoses / Procedures Referred By Contact Referred To Contact Cardiovascular Diseases / Cardiovascular Disease Diagnoses Stenosis Aortic Valve Acquired Mare Arauz M.D., Ph.D. [address] [place] [phone] [facility] Referral ID Status Reason Start Date Expiration Date Visits Re quested Visits Authorized [id number] Closed 11/27/2023 11/26/2024 1 1 REVIEWER Encounter Details Date Type Department Care Team (Late st Contact Info) Description 11/27/2023 Orders Only Division of Nephrology and Hypertension in [place], [place] [address] [place] [phone] Mare Arauz M.D., Ph.D. [address] [place] [phone] Stenosis Aortic Valve Acquired (Primary Dx) Social [...] of this encounter Plan of Treatment Scheduled Referrals Name Type Priority Associated Diagnoses [...] documented as of this encounter Care Teams Licensed Loan Officer Assistant Relationship Specialty Start Date End Date Kylah Crum M.D. [address] [place] [phone] PCP - General Family Medicine 09/28/23 documented as of this encounter
--- OUTSIDE RECORDS SUMMARY | 2024-03-20 17:28 | XMS_ITS | Encounter Summary ---
Author Name Unknown Organization [facility] Address [address] [place] [address] Care Team Providers Care Project Scheduler Name Role Phone Kylah Crum M.D. Primary Care Provider [phone] Reason for Visit * Reason Onset Date Comments Anticoagulation 11/22/2023 Encounter Details Date Type Department Care Team (Latest Contact Info) Description 11/22/2023 Clinical Communication Department of Anticoagulation in [place], [place] [address] [place] [address] Edna Gamble RSammi [address] [place] [phone] Anticoagulation Social History Tobacco Use Types Packs/Day [...] Edna Gamble R.N. - 11/22/2023 10:45 AM PAYROLL ASSISTANT [facility] Primary Care Anticoagulation Episode has been resolved due to transitioning to adifferent Anticoagulation program. Thank you for allowing us to participate in the anticoagulation management of your patient. Primary Care in [facility] Anticoagulation Program at [phone]. InBaironsket: RST ACO PRIMARY CARE ANTICOAG SERVICE OLL ASSISTANT documented in this encounter Plan of Treatment Not on file documented as of this encounter Visit Diagnoses Diagnosis Diabetes Mellitus Type 2 (HCC)- 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 History Prosthesis Aortic Valve Cardiac Surgery Status Post Bypass Coronary Artery Graft Status Post Secretarial Teacher (Current) Anticoagulant Treatment Monitoring For Therapeutic Drug Therapy documented in this encounter Additional Health Concerns Assessment Noted Time PHQ-9 Depression Total Score: 1 09/10/20 2:06 PM CDT documented as of this encounter Care Teams Project Scheduler Relationship Specialty Start Date End Date Kylah Crum M.D. [address] [place] [phone] PCP - General Family Medicine 09/28/23 documented as of this encounter
[2024-03-20 17:57] LABS: Estimated Glomerular Filt Rate 35 ml/min
[2024-03-20 17:58] LABS: Blood Urea Nitrogen* 37 mg/dL (7-30)
[2024-03-20 18:05] LABS: C Reactive Protein* < 0.5 mg/dL (0.5-1.0)
== END 2024-03-20 17:21 | disposition home or self-care (01) ==
LOC: NPINS 17:20
PROVIDERS: PCP Internal Medicine; Visit Provider Internal Medicine Cardiovascular Disease
DX: I31.9 Disease of pericardium, unspecified (principal)
CPT/HCPCS: 82565; 84520; 86140

== ENCOUNTER 2024-04-17 19:15 | Outpatient (CLI) | payer MEDICARE, SELFPAY ==
--- OUTSIDE RECORDS SUMMARY | 2024-04-17 19:21 | XMS_ITS | Referral Summary ---
Author Organization [facility] Address [address] [place] [address] Care Team Providers Care Chlorine Operator Name Role Phone Kylah Crum M.D. Primary Care Provider [phone] Source Comments Patient records contain information from all sites at [facility]. For routine questions regarding patient records, call [phone] during business hours, M-F 8:00 AM - 5:00 PM Central Time. Record requests for emergency care only can be directed to [phone] at any time.[facility] Encounters Date Type Department Care Team Description 04/17/2024 Clinical Communication Division of Nephrology and Hypertension in [place], [place] [address] [place] [address] Mare Arauz M.D., Ph.D. Appt Request 04/17/2024 Clinical Communication Department of Cardiovascular Medicine in [place], [place] [address] [place] [address] Gudelia Soto M.D. bilateral leg swelling 04/15/2024 Orders Only [facility] Kylah Crum M.D. Screening Abdominal Aortic Aneurysm; Diabetes Mellitus Type 2 (HCC) 03/18/2024 Refill Department of Cardiovascular Medicine in [place], [place] [address] [place] [address] Obinna Desai, P.A.-C. Med Refill 02/11/2024 Refill Department of Cardiovascular Medicine in [place], [place] [address] [place] [address] Gudelia Soto M.D. Med Refill 02/04/2024 10:49 AM CDT - 02/04/2024 11:59 PM CDT Hospital Encounter Department of Laboratory Medicine in [address] [address] Mare Arauz M.D., Ph.D. Chronic Kidney Disease (CKD), Stage 3b Glomerular Filtration Rate (GFR) 30 To 44 (HCC) Discharge Disposition: Home or Self Care 02/01/2024 Orders Only Division of Nephrology and Hypertension in [place], [place] [address] [place] [address] Mare Arauz M.D., Ph.D. Chronic Kidney Disease (CKD), Stage 3b Glomerular Filtration Rate (GFR) 30 To 44 (HCC) (Primary Dx) 01/28/2024 Clinical Communication Department of Family [facility], [facility], in [address] [address] Kylah Crum M.D. Results ([facility]) 01/16/2024 10:22 AM PLATE SHEAR OPERATOR - 01/16/2024 11:59 PM PLATE SHEAR OPERATOR Hospital Encounter Department of Laboratory Medicine in [address] [address] Mare Arauz M.D., Ph.D. Hypertension And Chronic Kidney Disease Stage 4 (HCC); Pericardial Disease (HCC) Discharge Disposition: Home or Self Care from [...] 1 tablet (81 mg total) daily. 09/26/2023 Active atorvastatin (LIPITOR) 80 mg tablet Take 1 tablet (80 mg total) by mouth at bedtime. 09/26/2023 Active finasteride (PROSCAR) 5 mg tablet Take 1 tablet (5 mg total) by mouth daily. 09/26/2023 Active rOPINIRole (REQUIP) 0.5 mg tablet Take 1 tablet (0.5 mg total) by mouth 3 (three) times a day. 09/26/2023 Active tamsulosin (FLOMAX) 0.4 mg 24 hr capsule Take 1 capsule (0.4 mg total) by mouth at bedtime. 09/26/2023 Active metoprolol tartrate (LOPRESSOR) 25 mg tablet Take 1 tablet (25 mg total) by mouth 2 (two) times a day. 60 tablet 09/26/2023 Active glipiZIDE (GLUCOTROL XL) 2.5 mg 24 hr tablet Take 1 tablet (2.5 mg total) by mouth daily with breakfast. 30 tablet 09/26/2023 Active warfarin (JANTOVEN) 1 mg tabletIndication s:Prosthesis Aortic Valve Take per Anticoagulation Clinic 180 tablet 3 10/31/2023 Active torsemide (DEMADEX) 20 mg tablet Take 1 tablet (20 mg total) by mouth daily. 11/29/2023 Active metoprolol succinate (TOPROL-XL) 50 mg 24 hr tablet Take 1 tablet by mouth daily. 12/20/2023 Active spironolactone (ALDACTONE) 25 mg tablet Take 1 tablet by mouth daily. 11/14/2023 Active iron,carbonyl-vi tamin C (VITRON-C) 65 mg iron- [address] tablet Take 1 tablet (65 mg of iron total) by mouth daily. Do not crush or chew. 90 tablet 3 01/01/2024 5 Active colchicine (COLCRYS) 0.6 mg tablet Take 0.5 tablets (0.3 mg total) by mouth daily. 45 tablet 3 02/19/2024 Active predniSONE (DELTASONE) 1 mg tablet Take 4 tablets (4 mg total) by mouth daily for 14 days, THEN 3 tablets (3 mg total) daily for 14 days, THEN 2 tablets (2 mg total) daily for 14 days, THEN 1 tablet (1 mg total) daily for 14 days. 140 tablet 03/18/2024 4 Active predniSONE (DELTASONE) 5 mg tablet Take 1 tablet (5 mg total) by mouth daily. 14 tablet 03/18/2024 Active Active Problems Problem Noted Date Diagnosed Date Technical Services Rep (Current) Anticoagulant Treatment 09/13 Bypass Coronary Artery Graft Status Post 023 Cardiac Surgery Status Post 09/24/2023 Effusion Pleural 09/24/2023 Device Cardiac Status Post 09/23/2023 Overview: Previously placed loop recorder Therapy Technical Services Rep Antiplatelet 09/22/2023 Coronary Arterial Bypass Graft Status [...] living situation today? I have a [facility] place to live 08/29/2023 Sex and Gender Information Value Date Recorded Sex Assigned at Male 08/29/2023 11:06 AM CDT Gender Identity Male 08/29/2023 11:06 AM CDT Sexual Orientation Straight 08/29/2023 11 :06 AM CDT Last Filed Vital Signs Vital Sign Reading Time Taken Comments Blood Pressure 111/68 12/24/2023 1:40 PM PLATE SHEAR OPERATOR Pulse 86 12/24/2023 1:40 PM PLATE SHEAR OPERATOR Temperature 36.1 ??C (96.9 ??F) 10/01/2023 1 1:08 AM PLATE SHEAR OPERATOR Respiratory Rate 20 10/01/2023 11:0 8 AM PLATE SHEAR OPERATOR Oxygen Saturation 98% 10/01/2023 11: 08 AM PLATE SHEAR OPERATOR Inhaled Oxygen Concentration - - Weight 85.2 kg (187 lb 13.3 oz) 12/25/2023 2:40 PM PLATE SHEAR OPERATOR Height 169.5 cm (5' 6.73) 12/25/2023 2:40 PM CS T Body Mass Index 29.66 12/25/2023 2:40 PM PLATE SHEAR OPERATOR Plan of Treatment Not on file Medical Devices Implanted Type Area Centerless Grinder Device Identifier Shelf Expiration Date Model / Serial / Lot Vlv Aort Cnf [facility] 23 - [id number] - [id number] Implanted:Qty: 1 on 09/19/2023 by Sarah Miller M.D., M.P.H. at [facility] Cardiac Valve Prosthesis N/A: Aortic Valve Artivion (Prev. CryoLife) 2028 ONXACE-2 3 / [id number] / Description:MRI conditional up to 3T, normal mode, per drafter topographical. [email or web address] _All.pdf AFK Clp Hrzn Ti 24 Clp Akhil - [id number] Implanted:Qty: 1 on 09/19/2023 by Sarah Miller M.D., M.P.H. at [facility] Hardware e.g. pins/screws/r ods N/A: Chest Teleflex [employer]. [id number] 04/29/2028 [id number] / / [id number] Clp Hrzn Ti 6 Clp Akhil - [id number] Implanted:Qty: 1 on 09/19/2023 by Sarah Miller M.D., M.P.H. at [facility] Hardware e.g. pins/screws/r ods N/A: Chest [employer] [id number] / / Clp Hrzn Ti 24 Clp Sm Red - [id number] Implanted:Qty: 1 on 09/19/2023 by Sarah Miller M.D., M.P.H. at [facility] Hardware e.g. pins/screws/r ods N/A: Chest [employer] [id number] / / Clp Hrzn Ti 24 Clp Sm Red - [id number] Implanted:Qty: 1 on 09/19/2023 by Sarah Miller M.D., M.P.H. at [facility] Hardware e.g. pins/screws/r ods N/A: Chest [employer] [id number] / / Latonia Surg Tfln 1x6 - [id number] Implanted:Qty: 1 on 09/19/2023 by Sarah Miller M.D., M.P.H. at [facility] Hardware e.g. pins/screws/r ods N/A: Chest [employer] [id number] / / Medtronic Linq-05/05/2019 Implanted:04/13 by Chet Badillo M.D., Ph.D. (Quantity not on file) Implantable Loop Recorder Chest Medtronic [id number] / [id number] / Description:MR Conditional 1 .5T and 3T - First level operating mode. - Jayro Abernathy 12/25/2023 Procedures Procedure Name Priority Date/Time Associated Diagnosis Comments BASIC METABOLIC PANEL, S/P Routine 02/04/2024 10:56 AM CDT Chronic Kidney Disease (CKD), Stage 3b Glomerular Filtration Rate (GFR) 30 To 44 (HCC) C-REACTIVE PROTEIN (CRP), S/P Routine 01/16/2024 10:30 AM PLATE SHEAR OPERATOR Pericardial Disease (HCC) SEDIMENTATION RATE, B Routine 01/16/2024 10:30 AM PLATE SHEAR OPERATOR Pericardial Disease (HCC) RENAL FUNCTION PANEL, S Routine 01/16/2024 10:30 AM PLATE SHEAR OPERATOR Hypertension And Chronic Kidney Disease Stage 4 (HCC) LIPID PANEL, S Routine 12/24/2023 9:44 AM PLATE SHEAR OPERATOR Stenosis Aortic Valve Acquired HEMOGLOBIN A1C, B [...] Seymour M.D., Ph.D. LAB BL OOD ADD-ON [facility] [address] [place] [address], [place] OWAT [facility] in [place] [address] [place] [address] * (ABNORMAL) Renal Function Panel (01/16/2024 10:30 AM PLATE SHEAR OPERATOR) Potassium, P 4.9 3.6 - 5.2 mmol/L 01/16/2024 2:22 PM PLATE SHEAR OPERATOR OWAT Sodium, P 140 135 - 145 mmol/L 01/16/2024 2:22 PM PLATE SHEAR OPERATOR OWAT Chloride, P 101 98 - 107 mmol/L 01/16/2024 2:22 PM PLATE SHEAR OPERATOR OWAT Bicarbonate, P 31(H) 22 - 29 mmol/L 01/16/2024 2:22 PM PLATE SHEAR OPERATOR OWAT Anion Gap, P 8 7 - 15 01/16/2024 2:22 PM PLATE SHEAR OPERATOR OWAT BUN (Blood Urea Nitrogen), P 41(H) 8 - 24 mg/dL 01/16/2024 2:22 PM PLATE SHEAR OPERATOR OWAT Creatinine 2.07(H) 0.74 - 1.35 mg/dL 01/16/2024 2:22 PM PLATE SHEAR OPERATOR OWAT Estimated GFR (eGFR) 34(L) >=60 mL/min/BSA 01/16/2024 2:22 PM PLATE SHEAR OPERATOR OWAT Comment: Estimated GFR calculated using the 2020 CKD_EPI creatinine equation. Calcium, Total, P 9.4 8.8 - 10.2 mg/dL 01/16/2024 2:22 PM PLATE SHEAR OPERATOR OWAT Glucose, P 142(H) 70 - 140 mg/dL 01/16/2024 2:22 PM PLATE SHEAR OPERATOR OWAT Albumin, P 3.6 3.5 - 5.0 g/dL 01/16/2024 2:22 PM PLATE SHEAR OPERATOR OWAT Phosphorus (Inorganic), P 3.9 2.5 - 4.5 mg/dL 01/16/2024 3:49 PM PLATE SHEAR OPERATOR AUST Blood (Blood, Venous) 01/16/2024 10:30 AM PLATE SHEAR OPERATOR 01/16/2024 1:43 PM PLATE SHEAR OPERATOR Narrative [facility] - 01/16/2024 3:49 PM PLATE SHEAR OPERATOR Specimen Information: Specimen ID: [id number] Specimen Type: Blood Specimen Collection Start Date: 01/16/2024 10:30 AM Specimen Received Date: 01/16/2024 ??1:43 PM Specimen ID: [id number] Specimen Type: Blood Specimen Collection Start Date: 01/16/2024 10:30 AM Specimen Received Date: 01/16/2024 ??3:33 PM Mare Seymour M.D., Ph.D. LAB BL OOD ADD-ON Performing Organization Address City/[facility]/ZIP Co de Phone Number [facility] [address] in [place] [address] [place] [address] [facility] - [address] [address] * Sedimentation Rate (01/16/2024 10:30 AM PLATE SHEAR OPERATOR) Sedimentation Rate, B 11 0 - 22 mm/1 h 01/16/2024 4:01 PM PLATE SHEAR OPERATOR [facility] Blood (Blood, Venous) 01/16/2024 10:30 AM PLATE SHEAR OPERATOR 01/16/2024 3:33 PM PLATE SHEAR OPERATOR Gudelia Soto M.D. LAB BLOOD ADD-ON Performing Organization Address City/[facility]/ZIP Co de Phone Number [facility] [address] [place], [place] [address] - [address] [address] * CRP (C-Reactive Protein) (01/16/2024 10:30 AM PLATE SHEAR OPERATOR) C-Reactive Protein (CRP), P <3.0 <5.0 mg/L 01/16/2024 2:22 PM PLATE SHEAR OPERATOR OW Blood (Blood, Venous) 01/16/2024 10:30 AM PLATE SHEAR OPERATOR 01/16/2024 1:43 PM PLATE SHEAR OPERATOR Gudelia Soto M.D. LAB BLOOD ADD-ON [facility] [address] [place] [address], [place] OWAT [facility] in [place] [address] [place] [address] * Lipid Panel (12/24/2023 9:44 AM PLATE SHEAR OPERATOR) Triglycerides 68 mg/dL 12/24/2023 1:00 PM PLATE SHEAR OPERATOR DTL Comment: ----REFERENCE VALUE---- Normal: <150 mg/dL Borderline High: 150-199 mg/dL High: 200-499 mg/dL Very High: > or =500 mg/dL Cholesterol, Total 107 mg/dL 2023 1:00 PM PLATE SHEAR OPERATOR DTL Comment: ----REFERENCE VALUE---- Desirable: < 200 mg/dL Borderline High: 200 - 239 mg/dL High: > or = 240 mg/dL Cholesterol, LDL, Calculated 50 mg/dL 12/24/2023 1:00 PM PLATE SHEAR OPERATOR DTL Comment: ----REFERENCE VALUE---- Desirable: <100 mg/dL Above Desirable: 100-129 mg/dL Borderline High: 130-159 mg/dL High: 160-189 mg/dL Very High: >=190 mg/dL ----ADDITIONAL INFORMATION---- LDL cholesterol calculated using the Iglesias/NIH equation. Cholesterol, HDL, S 42 >=40 mg/dL 12/24/2023 1:00 PM PLATE SHEAR OPERATOR DTL Cholesterol, Non-HDL, Calculated 65 mg/dL 12/24/2023 1:00 PM PLATE SHEAR OPERATOR DTL Comment: ----REFERENCE VALUE---- Desirable: <130 mg/dL Above Desirable: 130-159 mg/dL Borderline High: 160-189 mg/dL High: 190-219 mg/dL Very High: > or =220 mg/dL Fasting (8 HR or more) yes 12/24/2023 10:18 AM PLATE SHEAR OPERATOR DTL Blood (Blood, Venous) 12/24/2023 9:44 AM PLATE SHEAR OPERATOR 12/24/2023 10:18 AM PLATE SHEAR OPERATOR Gudelia Soto M.D. LAB BLOOD ADD-ON Performing Organization Address City/[facility] Co de Phone Number [facility] [address] [place] [address], [facility] [address] [place] [address] * (ABNORMAL) Hemoglobin A1c (08/22/2023 5:14 AM CDT) Hemoglobin A1c, B 6.2(H) 4.0 - 5.6 % 08/22/2023 7:37 AM CDT DT Comment: Hemoglobin A1c values of 5.7-6.4 percent indicate an increased risk for developing diabetes mellitus. In diabetic patients, HbA1c goals should be discussed with healthcare provider. Blood (Blood, Venous) 08/22/2023 5:14 AM CDT 08/22/2023 5:49 AM CDT Radha Richards APRNNGrant., D.N.P. LAB BLOOD ADD-ON Performing Organization Address [facility] Co de Phone Number [facility] [address] [place] [address], [facility] [address] [place] [address] * Colonoscopy (11/21/2022) EXT Colonoscopy Normal - See Scanned Report for Details Normal - See Scanned Report for Details, HIMS - Report Received and Scanned Historical Provider GI PROCEDURE ORDERAB LES from Last 3 Months or Most Recently Relevant to Health Maintenance Advance Directives For more information, please contact: [phone] * Full Code (Latest Code Status on [...] Answer Comments Full Code: Discussed Care Teams Chlorine Operator Relationship Specialty Start Date End Date Kylah Crum M.D. NPVeda: [phone] [address] [place] [address] [place] [address] PCP - General Family Medicine 09/28/23
--- OUTSIDE RECORDS SUMMARY | 2024-04-17 19:21 | XMS_ITS | Encounter Summary ---
Author Organization [facility] Address [address] [place] [address] Care Team Providers Care Technical Sales Support Manager Name Role Phone Kylah Crum M.D. Primary Care Provider Reason for Visit * Reason Onset Date Comments bilateral leg swelling 04/17/2024 Encounter Details Date Type Department Care Team (Latest Contact Info) Description 04/17/2024 Clinical Communication Department of Cardiovascular Medicine in [place], [place] [address] [place] [address] Gudelia Soto M.D. [address] [place] [address] bilateral leg swelling Social History Tobacco Use Types Packs/Day Years [...] encounter Miscellaneous Notes * Telephone Encounter - Lester Phelps, R.N. - 04/17/2024 4:46 PM CDT Phone call returned to ANGIE Henriquez at [facility]. She had left for the day so the trade union secretary left a message with our phone number. * Telephone Encounter - Lester Phelps, R.N. - 04/17/2024 3:02 PM CDT Phone call returned to ANGIE Henriquez at the [facility]. Mr. Harris was in clinic for an INR check and was reporting some swelling bilaterally in his lower extremities. Florence stated is was about a +2 edema. She is not sure if his weight has increased. 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 He last saw Dr. Soto in December. Unfortunately she is away from the clinic until 04/29/24. Florence tried to get him an appointment with his PCP, but she does not have openings. He should be seen by a primary care provider on his PCP's team to be assessed. He denies any shortness of breath. He follows with nephrology also for kidney failure and was due to have a follow up in March. I do not see that was ordered or scheduled. Florence will ask Mr. Harris to see another provider at the [facility] to be assessed. Addendum: Phone call placed to appointment office for Nephrology as a follow up was recommended in March from Dr. Wilfredo Seymour's note, but there are no orders in. They will reach out to Dr. Weinstein to schedule a follow up. documented in this encounter Plan of Treatment Not on file documented as of this encounter Visit Diagnoses Not on filedocumented in this encounter Additional Health Concerns Assessment Noted Time PHQ-9 Depression Total Score: 1 09/10/20 2:06 PM CDT documented as of this encounter Care Teams Technical Sales Support Manager Relationship Specialty Start Date End Date Kylah Crum M.D. [address] [place] [phone] PCP - General Family Medicine 09/28/23 documented as of this encounter
--- OUTSIDE RECORDS SUMMARY | 2024-04-17 19:21 | XMS_ITS | Encounter Summary ---
Author Organization [facility] Address [address] [place] [address] Care Team Providers Care Mid Wife Name Role Phone Kylah Crum M.D. Primary Care Provider [phone] Reason for Referral * Outpatient (Routine) - Authorized Specialty Diagnoses / Procedures Referred By Sebas gimenez Referred To Contact Kylah Crum M.D. [address] [place] [address] [facility] Region Referral ID Status Reason Start Date Expiration Date V isits Requested Visits Authorized [id number] Authorized 04/15/2024 10/15/2025 1 1 Scheduling Instructions Nurse AWV Do not schedule prior to due date to ensure insurance coverage Visit: Medicare Annual Wellness Never done. * Outpatient (Routine) - Authorized Specialty Diagnoses / Procedures Referred By Sebas gimenez Referred To Contact Diagnoses Screening Abdominal Aortic Aneurysm Procedures US Aorta AAA Screening Kylah Crum M.D. [address] [place] [address] [facility] Region Referral ID Status Reason Start Date Expiration Date V isits Requested Visits Authorized [id number] Authorized 04/15/2024 04/15/2025 1 1 Encounter Details Date Type Department Care Team (Late st Contact Info) Description 04/15/2024 Orders Only [facility] Ayuob, Mysoon M, M.D. [address] [place] [address] [place] [address] Screening Abdominal Aortic Aneurysm; Diabetes Mellitus [...] [facility] today? [facility] 08/29/2023 Sex and Gender [...] all outpatients) Screening Abdominal Aortic Aneurysm Expected: 04/29/2024, Expires: 10/12/2024 Albumin, Random, Urine Lab Routine Diabetes Mellitus Type 2 (HCC) Expected: 04/29/2024, Expires: 10/12/2024 Hemoglobin A1c Lab Routine Diabetes Mellitus Type 2 (HCC) Expected: 04/29/2024, Expires: 10/12/2024 Scheduled Referrals Name Type Priority Associated Diagnoses Orde r Schedule Primary Care nurse visit (clinic) - [facility]; Medicare Annual Wellness Outpatient Referral Routine Expected: 05/13/2024, Expires: 10/12/2024 documented as of this encounter Visit Diagnoses Diagnosis Screening Abdominal Aortic Aneurysm Diabetes Mellitus Type 2 (HCC) documented in this encounter Additional Health Concerns Assessment Noted Time PHQ-9 Depression Total Score: 1 09/10/20 2:06 PM CDT documented as of this encounter Care Teams Mid Wife Relationship Specialty Start Date End Date Kylah Crum M.D. [address] [place] [phone] PCP - General Family Medicine 09/28/23 documented as of this encounter
--- OUTSIDE RECORDS SUMMARY | 2024-04-17 19:21 | XMS_ITS | Encounter Summary ---
Author Organization [facility] Address [address] [place] [address] Care Team Providers Care Skill Training Program Coordinator Name Role Phone Kylah Crum M.D. Primary Care Provider [phone] Reason for Visit * Reason Onset Date Comments Appt Request 04/17/2024 Encounter Details Date Type Department Care Team (Latest Contact Info) Description 04/17/2024 Clinical Communication Division of Nephrology and Hypertension in [place], [place] [address] [place] [address] Mare Arauz M.D., Ph.D. [address] [place] [address] Appt Request Social History Tobacco Use Types Packs/Day Years [...] documented as of this encounter Care Teams Skill Training Program Coordinator Relationship Specialty Start Date End Date Kylah Crum M.D. [address] [place] [phone] PCP - General Family Medicine 09/28/23 documented as of this encounter
--- OUTSIDE RECORDS SUMMARY | 2024-04-17 19:21 | XMS_ITS | Encounter Summary ---
Author Organization [facility] Address [address] [place] [address] Care Team Providers Care Collections And Archives Director Name Role Phone Kylah Crum M.D. Primary Care Provider [phone] Encounter Details Date Type Department Care Team (Latest Contact Info) Description 02/04/2024 10:49 AM CDT - 02/04/2024 11:59 PM CDT Hospital Encounter Department of Laboratory Medicine in [address] [phone] Mare Arauz M.D., Ph.D. [address] [place] [phone] Chronic Kidney Disease (CKD), Stage 3b Glomerular [...] living situation today? I have a [facility] place to live 08/29/2023 Sex [...] total) by mouth at bedtime. 09/26/2023 09/25/2024 cholecalciferol 10 mcg (400 Unit) tablet Take 10 mcg by mouth daily. cyanocobalamin 2,000 mcg tablet Take 2,000 mcg by mouth daily. finasteride (PROSCAR) 5 mg tablet Take 1 tablet (5 mg total) by mouth daily. 09/26/2023 glipiZIDE (GLUCOTROL XL) 2.5 mg 24 hr tablet Take 1 tablet (2.5 mg total) by mouth daily with breakfast. 30 tablet 09/26/2023 iron,carbonyl-vitam in C (VITRON-C) 65 mg iron- [address] tablet Take 1 tablet (65 mg of iron total) by mouth daily. Do not crush or chew. 90 tablet 3 01/01/2024 12/31/2024 metoprolol succinate (TOPROL-XL) 50 mg 24 hr tablet Take 1 tablet by mouth daily. 12/20/2023 metoprolol tartrate (LOPRESSOR) 25 mg tablet Take 1 tablet (25 mg total) by mouth 2 (two) times a day. 60 tablet 09/26/2023 rOPINIRole (REQUIP) 0.5 mg tablet Take 1 tablet (0.5 mg total) by mouth 3 (three) times a day. 09/26/2023 spironolactone (ALDACTONE) 25 mg tablet Take 1 tablet by mouth daily. 11/14/2023 tamsulosin (FLOMAX) 0.4 mg 24 hr capsule Take 1 capsule (0.4 mg total) by mouth at bedtime. 09/26/2023 torsemide (DEMADEX) 20 mg tablet Take [...] taken in conjunction with 5mg tablets. Take 3byu25zuak,7hue55eitw,7 tam34iijm,7qsy81kdyx,5m gz98gcuv,5tyv76jppt,3mg v42egph,2gdg09esax,1mgx 14days.. 280 tablet 01/15/2024 03/18/2024 predniSONE (DELTASONE) [...] in conjunction with 1 mg tablets. Take 0voc19rhfo,4cwl04syod,7 uva92gvws,2jlr66zcbm,5m gt98bwbq,1oaa76tqnh,3mg r58kmkl,4bhc15rbwb,1mgx 14days. 70 tablet 01/15/2024 03/18/2024 documented as [...] Seymour M.D., Ph.D. LAB BL OOD ADD-ON [facility] [address], [place] [address], [facility] in [place] [address] [place] [address] documented in this encounter Visit Diagnoses Diagnosis Chronic Kidney Disease (CKD), Stage 3b Glomerular Filtration Rate (GFR) 30 To 44 (HCC) documented in this encounter Additional Health Concerns Assessment Noted Time PHQ-9 Depression Total Score: 1 09/10/20 23 2:06 PM CDT documented as of this encounter Care Teams Collections And Archives Director Relationship Specialty Start Date End Date Kylah Crum M.D. [address] [place] [phone] PCP - General Family Medicine 09/28/23 documented as of this encounter
--- OUTSIDE RECORDS SUMMARY | 2024-04-17 19:21 | XMS_ITS | Encounter Summary ---
Author Organization [facility] Address [address] [place] [address] Care Team Providers Care Customer Experience Specialist Name Role Phone Kylah Crum M.D. Primary Care Provider Reason for Visit * Reason Comments Med Refill Encounter Details Date Type Department Care Team (Late st Contact Info) Description 02/11/2024 Refill Department of Cardiovascular Medicine in [place], [place] [address] [place] [address] Gudelia Soto M.D. [address] [place] [address] Med Refill Social History Tobacco Use Types [...] of this encounter Care Teams Customer Experience Specialist Relationship Specialty Start Date End Date Kylah Crum M.D. [address] [place] [address] [place] [phone] PCP - General Family Medicine 09/28/23 documented as of this encounter
--- OUTSIDE RECORDS SUMMARY | 2024-04-17 19:21 | XMS_ITS | Clinical Summary ---
Author Organization [facility] Address [address] [place] [address] Care Team Providers Care Neighborhood Service Center Director Name Role Phone Kylah Crum M.D. Primary Care Provider [phone] Source Comments Patient records contain information from all sites at [facility]. For routine questions regarding patient records, call [phone] during business hours, M-F 8:00 AM - 5:00 PM Central Time. Record requests for emergency care only can be directed to [phone] at any time.[facility] Allergies No known active allergies Medications Medication [...] 1 tablet (81 mg total) daily. 09/26/2023 4 Active atorvastatin (LIPITOR) 80 mg tablet Take 1 tablet (80 mg total) by mouth at bedtime. 09/26/2023 4 Active finasteride (PROSCAR) 5 mg [...] Active Problems Problem Noted Date Diagnosed Date Long-Term (Current) Anticoagulant Treatment 09/13 Bypass Coronary Artery Graft Status Post 023 Cardiac Surgery Status Post 09/24/2023 Effusion Pleural 09/24/2023 Device Cardiac Status Post 09/23/2023 Overview: Previously placed loop recorder Therapy Multiple Tube Winding Machine Operator Antiplatelet 09/22/2023 Coronary Arterial Bypass Graft [...] Communication Division of Nephrology and Hypertension in [place], [place] [address] [place] [address] Mare Arauz M.D., Ph.D. Appt Request 04/17/2024 Clinical Communication Department of Cardiovascular Medicine in [place], [place] [address] [place] [address] Gudelia Soto M.D. bilateral leg swelling 04/15/2024 Orders Only [facility] PCP [facility] Kylah Crum M.D. Screening Abdominal Aortic Aneurysm; Diabetes Mellitus Type 2 (HCC) 03/18/2024 Refill Department of Cardiovascular Medicine in [place], [place] [address] [place] [address] Obinna Desai, P.A.-C. Med Refill 02/11/2024 Refill Department of Cardiovascular Medicine in [place], [place] [address] [place] [address] Gudelia Soto M.D. Med Refill 02/04/2024 10:49 AM CDT - 02/04/2024 11:59 PM CDT Hospital Encounter Department of Laboratory Medicine in [place], [place] [address] [place] [address] Mare Arauz M.D., Ph.D. Chronic Kidney Disease (CKD), Stage 3b Glomerular Filtration Rate (GFR) 30 To 44 (HCC) Discharge Disposition: Home or Self Care 02/01/2024 Orders Only Division of Nephrology and Hypertension in [place], [place] [address] [place] [address] Mare Arauz M.D., Ph.D. Chronic Kidney Disease (CKD), Stage 3b Glomerular Filtration Rate (GFR) 30 To 44 (HCC) (Primary Dx) 01/28/2024 Clinical Communication Department of Family Medicine, [facility], in [address] [address] Kylah Crum M.D. Results ([facility]) 01/16/2024 10:22 AM AFTER SCHOOL TEACHER - 01/16/2024 11:59 PM AFTER SCHOOL TEACHER Hospital Encounter Department of Laboratory Medicine in [address] [address] Mare Arauz M.D., Ph.D. Hypertension And Chronic [...] your living situation today? I have a [facility] place to live 08/29/2023 Sex and Gender Information Value Date Recorded Sex Assigned at Male 08/29/2023 11:06 AM CDT Gender Identity Male 08/29/2023 11:06 AM CDT Sexual Orientation Straight 08/29/2023 11 :06 AM CDT Last Filed Vital Signs Vital Sign Reading Time Taken Comments Blood Pressure 111/68 12/24/2023 1:40 PM AFTER SCHOOL TEACHER Pulse 86 12/24/2023 1:40 PM AFTER SCHOOL TEACHER Temperature 36.1 ??C (96.9 ??F) 10/01/2023 1 1:08 AM AFTER SCHOOL TEACHER Respiratory Rate 20 10/01/2023 11:0 8 AM AFTER SCHOOL TEACHER Oxygen Saturation 98% 10/01/2023 11: 08 AM AFTER SCHOOL TEACHER Inhaled Oxygen Concentration - - Weight 85.2 kg (187 lb 13.3 oz) 12/25/2023 2:40 PM AFTER SCHOOL TEACHER Height 169.5 cm (5' 6.73) 12/25/2023 2:40 PM CS T Body Mass Index 29.66 12/25/2023 2:40 PM AFTER SCHOOL TEACHER Plan of Treatment Health Maintenance Due Date [...] Completed 12/24/2023 Medical Devices Implanted Type Area Sand Cutter Operator Device Identifier Shelf Expiration Date Model / Serial / Lot Vlv Aort Cnf [facility] 23 - [id number] - [id number] Implanted:Qty: 1 on 09/19/2023 by Sarah Miller M.D., M.P.H. at [facility] Cardiac Valve Prosthesis N/A: Aortic Valve Artivion (Prev. CryoLife) 2028 ONXACE-2 3 / [id number] / Description:MRI conditional up to 3T, normal mode, per assistant superintendent. [email or web address] ation _All.pdf AFK Clp Hrzn Ti 24 Clp Akhil - [id number] Implanted:Qty: 1 on 09/19/2023 by Sarah Miller M.D., M.P.H. at [facility] Hardware e.g. pins/screws/r ods N/A: Chest [employer] [id number] 04/29/2028 [id number] / / [id number] Clp Hrzn Ti 6 Clp Md Akhil - [id number] Implanted:Qty: 1 on 09/19/2023 by Sarah Miller M.D., M.P.H. at [facility] Hardware e.g. pins/screws/r ods N/A: Chest [employer] [id number] / / Clp Hrzn Ti 24 Clp Sm Red - [id number] Implanted:Qty: 1 on 09/19/2023 by Sarah Miller M.D., M.P.H. at [facility] Hardware e.g. pins/screws/r ods N/A: Chest [employer] [id number] / / Clp Hrzn Ti 24 Clp Sm Red - [id number] Implanted:Qty: 1 on 09/19/2023 by Sarah Miller M.D., M.P.H. at [facility] Hardware e.g. pins/screws/r ods N/A: Chest [employer] [id number] / / Walnut Surg Tfln 1x6 - [id number] Implanted:Qty: 1 on 09/19/2023 by Sarah Miller M.D., M.P.H. at [facility] Hardware e.g. pins/screws/r ods N/A: Chest Cellerix [id number] / / Medtronic Linq-05/05/2019 Implanted:04/13 by Chet Badillo M.D., Ph.D. (Quantity not on file) Implantable Loop Recorder Chest Medtronic [id number] / [id number] / Description:MR Conditional 1 .5T and 3T - First level operating mode. - Jayro Abernathy 12/25/2023 Procedures Procedure Name Priority Date/Time Associated Diagnosis Comments BASIC METABOLIC PANEL, S/P Routine 02/04/2024 10:56 AM CDT Chronic Kidney Disease (CKD), Stage 3b Glomerular Filtration Rate (GFR) 30 To 44 (HCC) C-REACTIVE PROTEIN (CRP), S/P Routine 01/16/2024 10:30 AM AFTER SCHOOL TEACHER Pericardial Disease (HCC) SEDIMENTATION RATE, B Routine 01/16/2024 10:30 AM AFTER SCHOOL TEACHER Pericardial Disease (HCC) RENAL FUNCTION PANEL, S Routine 01/16/2024 10:30 AM AFTER SCHOOL TEACHER Hypertension And Chronic Kidney Disease Stage 4 (HCC) LIPID PANEL, S Routine 12/24/2023 9:44 AM AFTER SCHOOL TEACHER Stenosis Aortic Valve Acquired HEMOGLOBIN A1C, B [...] Seymour M.D., Ph.D. LAB BL OOD ADD-ON [facility] [address] [place] [address], [facility] OW[address] [facility] [place] [address] [place] [address] * (ABNORMAL) Renal Function Panel (01/16/2024 10:30 AM AFTER SCHOOL TEACHER) Potassium, P 4.9 3.6 - 5.2 mmol/L 01/16/2024 2:22 PM AFTER SCHOOL TEACHER OWAT Sodium, P 140 135 - 145 mmol/L 01/16/2024 2:22 PM AFTER SCHOOL TEACHER OWAT Chloride, P 101 98 - 107 mmol/L 01/16/2024 2:22 PM AFTER SCHOOL TEACHER OWAT Bicarbonate, P 31(H) 22 - 29 mmol/L 01/16/2024 2:22 PM AFTER SCHOOL TEACHER OWAT Anion Gap, P 8 7 - 15 01/16/2024 2:22 PM AFTER SCHOOL TEACHER OWAT BUN (Blood Urea Nitrogen), P 41(H) 8 - 24 mg/dL 01/16/2024 2:22 PM AFTER SCHOOL TEACHER OWAT Creatinine 2.07(H) 0.74 - 1.35 mg/dL 01/16/2024 2:22 PM AFTER SCHOOL TEACHER OWAT Estimated GFR (eGFR) 34(L) >=60 mL/min/BSA 01/16/2024 2:22 PM AFTER SCHOOL TEACHER OWAT Comment: Estimated GFR calculated using the 2020 CKD_EPI creatinine equation. Calcium, Total, P 9.4 8.8 - 10.2 mg/dL 01/16/2024 2:22 PM AFTER SCHOOL TEACHER OWAT Glucose, P 142(H) 70 - 140 mg/dL 01/16/2024 2:22 PM AFTER SCHOOL TEACHER OWAT Albumin, P 3.6 3.5 - 5.0 g/dL 01/16/2024 2:22 PM AFTER SCHOOL TEACHER OWAT Phosphorus (Inorganic), P 3.9 2.5 - 4.5 mg/dL 01/16/2024 3:49 PM AFTER SCHOOL TEACHER AUST Blood (Blood, Venous) 01/16/2024 10:30 AM AFTER SCHOOL TEACHER 01/16/2024 1:43 PM AFTER SCHOOL TEACHER Narrative [facility] - 01/16/2024 3:49 PM AFTER SCHOOL TEACHER Specimen Information: Specimen ID: [id number] Specimen Type: Blood Specimen Collection Start Date: 01/16/2024 10:30 AM Specimen Received Date: 01/16/2024 ??1:43 PM Specimen ID: [id number] Specimen Type: Blood Specimen Collection Start Date: 01/16/2024 10:30 AM Specimen Received Date: 01/16/2024 ??3:33 PM Mare Seymour M.D., Ph.D. LAB BL OOD ADD-ON [facility] [address] [place] [address] [facility] [place] [address] [place] [address] [facility]3] [place] [address] * Sedimentation Rate (01/16/2024 10:30 AM AFTER SCHOOL TEACHER) Sedimentation Rate, B 11 0 - 22 mm/1 h 01/16/2024 4:01 PM AFTER SCHOOL TEACHER AUST Blood (Blood, Venous) 01/16/2024 10:30 AM AFTER SCHOOL TEACHER 01/16/2024 3:33 PM AFTER SCHOOL TEACHER Gudelia Soto M.D. LAB BLOOD ADD-ON Performing Organization Address [facility]/ZIP Co de Phone Number [facility] [address] [place] [address] * CRP (C-Reactive Protein) (01/16/2024 10:30 AM AFTER SCHOOL TEACHER) C-Reactive Protein (CRP), P <3.0 <5.0 mg/L 01/16/2024 2:22 PM AFTER SCHOOL TEACHER OWAT Blood (Blood, Venous) 01/16/2024 10:30 AM AFTER SCHOOL TEACHER 01/16/2024 1:43 PM AFTER SCHOOL TEACHER Gudelia Soto M.D. LAB BLOOD ADD-ON [facility] [address] [place] [address], [facility] OW[address] [facility] [place] [address] [place] [address] * Lipid Panel (12/24/2023 9:44 AM AFTER SCHOOL TEACHER) Triglycerides 68 mg/dL 12/24/2023 1:00 PM AFTER SCHOOL TEACHER DTL Comment: ----REFERENCE VALUE---- Normal: <150 mg/dL Borderline High: 150-199 mg/dL High: 200-499 mg/dL Very High: > or =500 mg/dL Cholesterol, Total 107 mg/dL 2023 1:00 PM AFTER SCHOOL TEACHER DTL Comment: ----REFERENCE VALUE---- Desirable: < 200 mg/dL Borderline High: 200 - 239 mg/dL High: > or = 240 mg/dL Cholesterol, LDL, Calculated 50 mg/dL 12/24/2023 1:00 PM AFTER SCHOOL TEACHER DTL Comment: ----REFERENCE VALUE---- Desirable: <100 mg/dL Above Desirable: 100-129 mg/dL Borderline High: 130-159 mg/dL High: 160-189 mg/dL Very High: >=190 mg/dL ----ADDITIONAL INFORMATION---- LDL cholesterol calculated using the Iglesias/NIH equation. Cholesterol, HDL, S 42 >=40 mg/dL 12/24/2023 1:00 PM AFTER SCHOOL TEACHER DTL Cholesterol, Non-HDL, Calculated 65 mg/dL 12/24/2023 1:00 PM AFTER SCHOOL TEACHER DTL Comment: ----REFERENCE VALUE---- Desirable: <130 mg/dL Above Desirable: 130-159 mg/dL Borderline High: 160-189 mg/dL High: 190-219 mg/dL Very High: > or =220 mg/dL Fasting (8 HR or more) yes 12/24/2023 10:18 AM AFTER SCHOOL TEACHER DTL Blood (Blood, Venous) 12/24/2023 9:44 AM AFTER SCHOOL TEACHER 12/24/2023 10:18 AM AFTER SCHOOL TEACHER Gudelia Soto M.D. LAB BLOOD ADD-ON Performing Organization Address [facility] Co de Phone Number [facility] [address] [place] [address] [facility] [address] [place] [address] * (ABNORMAL) Hemoglobin A1c (08/22/2023 5:14 AM [...] D.N.P. LAB BLOOD ADD-ON Performing Organization Address [facility] Co de Phone Number [facility] [address] [place], [place] [address] [address] [place] [address] * Colonoscopy (11/21/2022) EXT Colonoscopy Normal - See Scanned Report for Details Normal - See Scanned Report for Details, HIMS - Report Received and Scanned Historical Provider GI PROCEDURE ORDERAB LES from Last 3 Months or Most Recently Relevant to Health Maintenance Advance Directives For more information, please contact: [phone] * Full Code (Latest Code Status on [...] Answer Comments Full Code: Discussed Care Teams Neighborhood Service Center Director Relationship Specialty Start Date End Date Kylah Crum M.D. NPVeda: [phone] [address] [place] [phone] PCP - General Family Medicine 09/28/23
--- OUTSIDE RECORDS SUMMARY | 2024-04-17 19:21 | XMS_ITS | Encounter Summary ---
Author Organization [facility] Address [address] [place] [address] Care Team Providers Care Cost And Sales Record Supervisor Name Role Phone Kylah Crum M.D. Primary Care Provider [phone] Reason for Visit * Reason Comments Med Refill Encounter Details Date Type Department Care Team ([facility] st Contact Info) Description 03/18/2024 Refill Department of Cardiovascular Medicine in [place], [place] [address] [place] [address] Obinna Desai, P.A.-C. [address] [place] [address] Med Refill Social History Tobacco Use Types [...] living situation today? I have a [facility] place to live 08/29/2023 Sex [...] documented as of this encounter Care Teams Cost And Sales Record Supervisor Relationship Specialty Start Date End Date Kylah Crum M.D. [address] [place] [phone] PCP - General Family Medicine 09/28/23 documented as of this encounter
--- OUTSIDE RECORDS SUMMARY | 2024-04-17 19:21 | XMS_ITS ---
Author Organization [facility] Address [address] [place] [address] Care Team Providers Care Scrape Gatherer Name Role Phone Unavailable Unavailable Unavailable Surgery Details Not on file Complications Check Surgery Details section. Procedure Estimated Blood Loss Check Surgery Details section. Procedure Findings Check Surgery Details section. Procedure Specimens Taken Check Surgery Details section.
--- OUTSIDE RECORDS SUMMARY | 2024-04-17 19:22 | XMS_ITS | Encounter Summary ---
Author Organization [facility] Address [address] [place] [address] Care Team Providers Care Waiter/Waitress Cocktail Lounge Name Role Phone Kylah Crum M.D. Primary Care Provider [phone] Encounter Details Date Type Department Care Team (Latest Contact Info) Description 01/16/2024 10:22 AM FRONT DESK SPECIALIST - 01/16/2024 11:59 PM FRONT DESK SPECIALIST Hospital Encounter Department of Laboratory Medicine in [address] [phone] Mare Arauz M.D., Ph.D. [address] [place] [address] Hypertension And Chronic Kidney Disease Stage 4 [...] in conjunction with 5 mg tablets. Take 60ryn8moej,17.4qmm4lbyf , 82etg9xglg,12.1ath2bqze ,94ypx5dona.. 42 tablet 12/26/2023 01/30/2024 colchicine (COLCRYS) 0.6 [...] taken in conjunction with 5mg tablets. Take 8wea99tdxd,7njq17jvjj,7 hkr71pczu,3puy10jdnk,5m sz82mggu,5nov67kabc,3mg z98wevs,6zrc36brqp,1mgx 14days.. 280 tablet 01/15/2024 03/18/2024 predniSONE (DELTASONE) [...] in conjunction with 1 mg tablets. Take 0wxm11ndnv,9mrn44ovjj,7 cni44gveo,8gha77gozb,5m an13cgnz,2kpm89kner,3mg w42ieyk,5vzb60satz,1mgx 14days. 70 tablet 01/15/2024 03/18/2024 documented as of this encounter Plan of Treatment Not on file documented as of this encounter Procedures Procedure Name Priority Date/Time Associated Diagnosis Comments RENAL FUNCTION PANEL, S Routine 01/16/2024 10:30 AM FRONT DESK SPECIALIST Hypertension And Chronic Kidney Disease Stage 4 (HCC) SEDIMENTATION RATE, B Routine 01/16/2024 10:30 AM FRONT DESK SPECIALIST Pericardial Disease (HCC) C-REACTIVE PROTEIN (CRP), S/P Routine 01/16/2024 10:30 AM FRONT DESK SPECIALIST Pericardial Disease (HCC) documented in this encounter Results * CRP (C-Reactive Protein) (01/16/2024 10:30 AM FRONT DESK SPECIALIST) C-Reactive Protein (CRP), P <3.0 <5.0 mg/L 01/16/2024 2:22 PM FRONT DESK SPECIALIST OWAT Blood (Blood, Venous) 01/16/2024 10:30 AM FRONT DESK SPECIALIST 01/16/2024 1:43 PM FRONT DESK SPECIALIST Gudelia Soto M.D. LAB BLOOD ADD-ON [facility] [address] [place] [address], [facility] OWAT [facility] [place] [address] [place] [address] * Sedimentation Rate (01/16/2024 10:30 AM FRONT DESK SPECIALIST) Sedimentation Rate, B 11 0 - 22 mm/1 h 01/16/2024 4:01 PM FRONT DESK SPECIALIST AUST Blood (Blood, Venous) 01/16/2024 10:30 AM FRONT DESK SPECIALIST 01/16/2024 3:33 PM FRONT DESK SPECIALIST Gudelia Soto M.D. LAB BLOOD ADD-ON Performing Organization Address City/[facility]/ZIP Co de Phone Number [facility] [address] [place] [address], [place] AUST [facility] [address] [place] [address] * (ABNORMAL) Renal Function Panel (01/16/2024 10:30 AM FRONT DESK SPECIALIST) Potassium, P 4.9 3.6 - 5.2 mmol/L 01/16/2024 2:22 PM FRONT DESK SPECIALIST OWAT Sodium, P 140 135 - 145 mmol/L 01/16/2024 2:22 PM FRONT DESK SPECIALIST OWAT Chloride, P 101 98 - 107 mmol/L 01/16/2024 2:22 PM FRONT DESK SPECIALIST OWAT Bicarbonate, P 31(H) 22 - 29 mmol/L 01/16/2024 2:22 PM FRONT DESK SPECIALIST OWAT Anion Gap, P 8 7 - 15 01/16/2024 2:22 PM FRONT DESK SPECIALIST OWAT BUN (Blood Urea Nitrogen), P 41(H) 8 - 24 mg/dL 01/16/2024 2:22 PM FRONT DESK SPECIALIST OWAT Creatinine 2.07(H) 0.74 - 1.35 mg/dL 01/16/2024 2:22 PM FRONT DESK SPECIALIST OWAT Estimated GFR (eGFR) 34(L) >=60 mL/min/BSA 01/16/2024 2:22 PM FRONT DESK SPECIALIST OWAT Comment: Estimated GFR calculated using the 2020 CKD_EPI creatinine equation. Calcium, Total, P 9.4 8.8 - 10.2 mg/dL 01/16/2024 2:22 PM FRONT DESK SPECIALIST OWAT Glucose, P 142(H) 70 - 140 mg/dL 01/16/2024 2:22 PM FRONT DESK SPECIALIST OWAT Albumin, P 3.6 3.5 - 5.0 g/dL 01/16/2024 2:22 PM FRONT DESK SPECIALIST OWAT Phosphorus (Inorganic), P 3.9 2.5 - 4.5 mg/dL 01/16/2024 3:49 PM FRONT DESK SPECIALIST AUST Blood (Blood, Venous) 01/16/2024 10:30 AM FRONT DESK SPECIALIST 01/16/2024 1:43 PM FRONT DESK SPECIALIST Narrative [facility] - 01/16/2024 3:49 PM FRONT DESK SPECIALIST Specimen Information: Specimen ID: [id number] Specimen Type: Blood Specimen Collection Start Date: 01/16/2024 10:30 AM Specimen Received Date: 01/16/2024 ??1:43 PM Specimen ID: [id number] Specimen Type: Blood Specimen Collection Start Date: 01/16/2024 10:30 AM Specimen Received Date: 01/16/2024 ??3:33 PM Mare Seymour M.D., Ph.D. LAB BL OOD ADD-ON [facility] [address] [place] [address], [facility] OWAT [facility] in [address] [place] [address] [facility] - [facility] [address] [place] [address] documented in this encounter Visit Diagnoses Diagnosis Hypertension And Chronic Kidney Disease Stage 4 Pericardial Disease (HCC) documented in this encounter Additional Health Concerns Assessment Noted Time PHQ-9 Depression Total Score: 1 09/10/20 23 2:06 PM CDT documented as of this encounter Care Teams Waiter/Waitress Cocktail Lounge Relationship Specialty Start Date End Date Kylah Crum M.D. [address] [place] [address] [place] [address] PCP - General Family Medicine 09/28/23 documented as of this encounter
--- OUTSIDE RECORDS SUMMARY | 2024-04-17 19:22 | XMS_ITS | Encounter Summary ---
Author Organization [facility] Address [address] [place] [address] Care Team Providers Care Law Instructor Name Role Phone Kylah Crum M.D. Primary Care Provider Encounter Details Date Type Department Care Team (Late st Contact Info) Description 02/01/2024 Orders Only Division of Nephrology and Hypertension in [place], [place] [address] [place] [address] Mare Arauz M.D., Ph.D. [address] [place] [address] Chronic Kidney Disease (CKD), Stage 3b Glomerular [...] Seymour M.D., Ph.D. LAB BL OOD ADD-ON [facility] [address], [place] [address], [facility] OWAT [facility] in [place] [address] [place] [address] documented in this encounter Visit Diagnoses Diagnosis Chronic Kidney Disease (CKD), Stage 3b Glomerular Filtration Rate (GFR) 30 To 44 (HCC)- Primary documented in this encounter Additional Health Concerns Assessment Noted Time PHQ-9 Depression Total Score: 1 09/10/20 23 2:06 PM CDT documented as of this encounter Care Teams Law Instructor Relationship Specialty Start Date End Date Kylah Crum M.D. [address] [place] [phone] PCP - General Family Medicine 09/28/23 documented as of this encounter
--- OUTSIDE RECORDS SUMMARY | 2024-04-17 19:22 | XMS_ITS | Encounter Summary ---
Author Organization [facility] Address [address] [place] [address] Care Team Providers Care Gas Reverser Name Role Phone Kylah Crum M.D. Primary Care Provider [phone] Encounter Details Date Type Department Care Team (Latest Contact Info) Description 12/26/2023 Clinical Communication Department of Cardiovascular Medicine in [place], [place] [address] [place] [address] Eneida Loya, RJarrettNJarrett [address] [place] [address] Social History Tobacco Use Types Packs/Day Years [...] your living situation today? I have a [facility] place to live 08/29/2023 Sex and [...] documented as of this encounter Care Teams Gas Reverser Relationship Specialty Start Date End Date Kylah Crum M.D. [address] [place] [address] [place] [address] PCP - General Family Medicine 09/28/23 documented as of this encounter
--- OUTSIDE RECORDS SUMMARY | 2024-04-17 19:22 | XMS_ITS | Encounter Summary ---
Author Organization [facility] Address [address] [place] [address] Care Team Providers Care Peanut Salter Name Role Phone Kylah Crum M.D. Primary Care Provider Encounter Details Date Type Department Care Team (Latest Contact Info) Description 01/15/2024 Clinical Communication Department of Cardiovascular Medicine in [place], [place] [address] [place] [address] Eneida Loya, RJarrettNJarrett [address] [place] [address] Social History Tobacco Use Types Packs/Day Years [...] documented as of this encounter Care Teams Peanut Salter Relationship Specialty Start Date End Date Kylah Crum M.D. [address] [place] [address] [place] [address] PCP - General Family Medicine 09/28/23 documented as of this encounter
--- OUTSIDE RECORDS SUMMARY | 2024-04-17 19:22 | XMS_ITS | Encounter Summary ---
Author Organization [facility] Address [address] [place] [address] Care Team Providers Care Product Responsibility Liaison Name Role Phone Kylah Crum M.D. Primary Care Provider [phone] Reason for Visit * Reason Onset Date Comments Results 01/28/2024 [facility] Encounter Details Date Type Department Care Team (Latest Contact Info) Description 01/28/2024 Clinical Communication Department of Family Medicine, [facility] in [place], [place] [address] [place] [address] Kylah Crum M.D. [address] [place] [address] Results ([facility]) Social History [...] today? I have a [facility] place to live 08/29/2023 Sex and [...] INR is managed with his provider in [place]. Information/Education: patient/caller able to teach back The following references were used: none documented in this encounter Plan of Treatment Not on file documented as of this encounter Visit Diagnoses Not on filedocumented in this encounter Additional Health Concerns Assessment Noted Time PHQ-9 Depression Total Score: 1 09/10/20 2:06 PM CDT documented as of this encounter Care Teams Product Responsibility Liaison Relationship Specialty Start Date End Date Kylah Crum M.D. [address] [place] [phone] PCP - General Family Medicine 09/28/23 documented as of this encounter
--- OUTSIDE RECORDS SUMMARY | 2024-04-17 19:22 | XMS_ITS | Encounter Summary ---
Author Organization [facility] Address [address] [place] [address] Care Team Providers Care Drafter Electronic Name Role Phone Kylah Crum M.D. Primary Care Provider [phone] Encounter Details Date Type Department Care Team (Latest Contact Info) Description 12/26/2023 Clinical Communication Department of Cardiovascular Medicine in [place], [place] [address] [place] [address] Eneida Loya, RJarrettNJarrett [address] [place] [address] Social History Tobacco Use Types Packs/Day Years [...] documented as of this encounter Care Teams Drafter Electronic Relationship Specialty Start Date End Date Kylah Crum M.D. [address] [place] [address] [place] [address] PCP - General Family Medicine 09/28/23 documented as of this encounter
--- OUTSIDE RECORDS SUMMARY | 2024-04-17 19:22 | XMS_ITS | Encounter Summary ---
Author Organization [facility] Address [address] [place] [address] Care Team Providers Care Industrial Maintenance Technician Name Role Phone Kylah Crum M.D. Primary Care Provider Encounter Details Date Type Department Care Team (Late st Contact Info) Description 01/15/2024 Orders Only [facility] Kylah Crum M.D. [address] [place] [address] Diabetes Mellitus Type 2 (HCC) Social [...] documented as of this encounter Care Teams Industrial Maintenance Technician Relationship Specialty Start Date End Date Kylah Crum M.D. [address] [place] [phone] PCP - General Family Medicine 09/28/23 documented as of this encounter
--- OUTSIDE RECORDS SUMMARY | 2024-04-17 19:22 | XMS_ITS | Clinical Summary ---
Author Organization [facility] Address [place], [place] [address] Care Team Providers Care Community Pharmacist Name Role Phone Kylah Crum Staceymodesta TEDDY Primary Care Provider Medications No known medications Encounters Date Type Department Care Team Description 02/20/2024 11:08 AM CDT - 02/20/2024 11:59 PM CDT Hospital Encounter [address] [address] 02/20/2024 Travel 02/18/2024 11:14 AM CDT - 02/18/2024 11:59 PM CDT Hospital Encounter [address] [address] 02/18/2024 Travel 02/15/2024 11:16 AM CDT - 02/15/2024 11:59 PM CDT Hospital Encounter [address] [address] 02/15/2024 Travel 02/13/2024 11:10 AM CDT - 02/13/2024 11:59 PM CDT Hospital Encounter [address] [address] 02/13/2024 Travel 02/11/2024 11:15 AM CDT - 02/11/2024 11:59 PM CDT Hospital Encounter [address] [address] 02/11/2024 Travel 02/08/2024 11:13 AM CDT - 02/08/2024 11:59 PM CDT Hospital Encounter [facility] 200 [facility] [place] [address] 02/08/2024 Travel 02/06/2024 11:13 AM CDT - 02/06/2024 11:59 PM CDT Hospital Encounter [facility] [address] [facility] [place] [address] 02/06/2024 Travel 02/04/2024 10:59 AM CDT - 02/04/2024 11:59 PM CDT Hospital Encounter [facility] [address] [facility] [place] [address] 02/04/2024 Travel 02/01/2024 11:13 AM CDT - 02/01/2024 11:59 PM CDT Hospital Encounter [facility] [address] [facility] [place] [address] 02/01/2024 Travel 01/30/2024 11:11 AM CDT - 01/30/2024 11:59 PM CDT Hospital Encounter [facility] [address] [place] [address] 01/30/2024 Travel 01/28/2024 11:17 AM CDT - 01/28/2024 11:59 PM CDT Hospital Encounter [facility] [place] [facility] [place] [address] 01/28/2024 Travel 01/25/2024 11:26 AM CDT - 01/25/2024 11:59 PM CDT Hospital Encounter [facility] [place] [address] 01/25/2024 Travel 01/23/2024 11:22 AM CDT - 01/23/2024 11:59 PM CDT Hospital Encounter [facility] [place] [facility] [place] [address] Yadira Ashton MD 01/23/2024 Travel 01/18/2024 11:22 AM ACCOUNTING/FINANCE TUTOR - 01/18/2024 11:59 PM ACCOUNTING/FINANCE TUTOR Hospital Encounter [facility] [address] [place] [address] Yadira Ashton MD 01/18/2024 Travel 01/16/2024 10:47 AM ACCOUNTING/FINANCE TUTOR - 01/16/2024 11:59 PM ACCOUNTING/FINANCE TUTOR Hospital Encounter [facility] [address] [place] [address] Yadira Ashton MD 01/16/2024 Travel from Last 3 Months Social History Tobacco Use Types Packs/Day Years Used Date Smoking Tobacco: Never Assessed Sex and Gender Information Value Date Recorded Sex Assigned at Not on file Gender Identity Not on file Sexual Orientation Not on file Obstetrics History Last Filed Vital Signs Vital Sign Reading Time Taken Comments Blood Pressure 107/69 10/03/2023 4:23 PM ACCOUNTING/FINANCE TUTOR Pulse 84 10/03/2023 4:23 PM ACCOUNTING/FINANCE TUTOR Temperature 36.8 ??C (98.2 ??F) 10/03/2023 3:16 PM CS T Respiratory Rate 20 10/03/2023 3:16 PM ACCOUNTING/FINANCE TUTOR Oxygen Saturation 98% 10/03/2023 4:23 PM ACCOUNTING/FINANCE TUTOR Inhaled Oxygen Concentration - - Weight 90.7 kg (200 lb) 10/03/2023 3:08 PM ACCOUNTING/FINANCE TUTOR Height 172.7 cm (5' 8) 10/03/2023 3:08 PM ACCOUNTING/FINANCE TUTOR Body Mass Index 30.41 10/03/2023 3:08 PM ACCOUNTING/FINANCE TUTOR Plan of Treatment Health Maintenance Due Date [...] 1 - PCV) 017 COVID-19 vaccine series ( - 2022- season) 202 3 Influenza for age 65+ 07/13/2024 Procedures [...] AM CDT SCAN-CARDIAC REHABILITATION 01/18/2024 11:27 AM ACCOUNTING/FINANCE TUTOR SCAN-CARDIAC REHABILITATION 01/16/2024 11:05 AM ACCOUNTING/FINANCE TUTOR from Last 3 Months Results * SCAN-CARDIAC REHABILITATION (02/20/2024 11:13 AM CDT) Only the most recent of15 resultswithin the time period is included. Scanner OTHER from Last 3 Months Care Teams Community Pharmacist Relationship Specialty Start Date End Date Kylah Crum MBBS [address] [place] [phone] PCP - General Family Practice 10/03/23
[2024-04-17 20:53] LABS: Creatinine* 2.2 mg/dL (0.5-1.5); Estimated Glomerular Filt Rate 31 ml/min
[2024-04-17 20:54] LABS: Blood Urea Nitrogen* 41 mg/dL (7-30)
[2024-04-17 20:58] LABS: C Reactive Protein* < 0.5 mg/dL (0.5-1.0)
== END 2024-04-17 19:16 | disposition home or self-care (01) ==
LOC: LAB 19:19
PROVIDERS: PCP Internal Medicine; Visit Provider Internal Medicine Cardiovascular Disease
DX: I31.9 Disease of pericardium, unspecified (principal)
CPT/HCPCS: 36415; 82565; 84520; 86140

== ENCOUNTER 2024-05-01 10:55 | Outpatient (CLI) | payer MEDICARE, SELFPAY ==
--- OUTSIDE RECORDS SUMMARY | 2024-05-05 18:57 | XMS_ITS | Encounter Summary ---
Author Organization [facility] Address [address] [place] [address] Care Team Providers Care Electronics Worker Name Role Phone Kylah Crum M.D. Primary Care Provider [phone] Reason for Referral * Outpatient (Routine) - Authorized Specialty Diagnoses / Procedures Referred By Sebas gimenez Referred To Contact Kylah Crum M.D. [address] [place] [address] [facility] Region Referral ID Status Reason Start Date Expiration Date V isits Requested Visits Authorized [id number] Authorized 04/15/2024 10/15/2025 1 1 Scheduling Instructions Nurse AWV Do not schedule prior to due date to ensure insurance coverage Visit: Medicare Annual Wellness Never done. * Outpatient (Routine) - Authorized Specialty Diagnoses / Procedures Referred By Sebas gimenez Referred To Contact Diagnoses Screening Abdominal Aortic Aneurysm Procedures US Aorta AAA Screening Kylah Crum M.D. [address] [place] [address] [facility] Region Referral ID Status Reason Start Date Expiration Date V isits Requested Visits Authorized [id number] Authorized 04/15/2024 04/15/2025 1 1 Encounter Details Date Type Department Care Team (Late st Contact Info) Description 04/15/2024 Orders Only [facility] Ayuob, Mysoon M, M.D. [address] [place] [address] [place] [phone] Screening Abdominal Aortic Aneurysm; Diabetes Mellitus [...] your living situation today? [facility] 08/29/2023 Sex and Gender [...] Schedule Primary Care nurse visit (clinic) - [facility]; Medicare Annual Wellness Outpatient Referral Routine Expected: 05/13/2024, Expires: 10/12/2024 documented as of this encounter Visit Diagnoses Diagnosis Screening Abdominal Aortic Aneurysm Diabetes Mellitus Type 2 (HCC) documented in this encounter Additional Health Concerns Assessment Noted Time PHQ-9 Depression Total Score: 1 09/10/20 2:06 PM CDT documented as of this encounter Care Teams Electronics Worker Relationship Specialty Start Date End Date Kylah Crum M.D. [address] [place] [phone] PCP - General Family Medicine 09/28/23 documented as of this encounter
--- OUTSIDE RECORDS SUMMARY | 2024-05-05 18:57 | XMS_ITS | Encounter Summary ---
Author Organization [facility] Address [address] [place] [address] Care Team Providers Care Building Rigger Name Role Phone Kylah Crum M.D. Primary Care Provider Reason for Visit * Reason Onset Date Comments bilateral leg swelling 04/17/2024 Encounter Details Date Type Department Care Team (Latest Contact Info) Description 04/17/2024 Clinical Communication Department of Cardiovascular Medicine in [place], [place] [address] [place] [address] Gudelia Soto M.D. [address] [place] [address] bilateral leg swelling Social History Tobacco Use [...] Phone call returned to ANGIE Henriquez at [facility]. She had left for the day so the medical records secretary left a message with our phone number. * Telephone Encounter - Lester Phelps, R.N. - 04/17/2024 3:02 PM CDT Phone call returned to ANGIE Henriquez at the [facility]. Mr. Harris was in clinic for [...] Harris to see another provider at the [facility] to be assessed. Addendum: Phone call [...] as of this encounter Care Teams Building Rigger Relationship Specialty Start Date End Date Kylah Crum M.D. [address] [place] [phone] PCP - General Family Medicine 09/28/23 documented as of this encounter
--- OUTSIDE RECORDS SUMMARY | 2024-05-05 18:57 | XMS_ITS | Encounter Summary ---
Author Organization [facility] Address [address] [place] [address] Care Team Providers Care Manager Of Tires Sales Name Role Phone Kylah Crum M.D. Primary Care Provider [phone] Encounter Details Date Type Department Care Team (Latest Contact Info) Description 02/04/2024 10:49 AM CDT - 02/04/2024 11:59 PM CDT Hospital Encounter Department of Laboratory Medicine in [address] [phone] Mare Arauz M.D., Ph.D. [address] [place] [phone] Chronic Kidney Disease (CKD), Stage 3b Glomerular [...] your living situation today? I have a [facility] place to live 08/29/2023 Sex [...] taken in conjunction with 5mg tablets. Take 7gmk26jhwl,6fho69wfdc,7 nep44kiao,9avs05iack,5m el91sfuw,3rwr41pxxr,3mg u36zfkd,8bpx25zprd,1mgx 14days.. 280 tablet 01/15/2024 03/18/2024 predniSONE (DELTASONE) [...] in conjunction with 1 mg tablets. Take 9qyt11bcxa,2vnl15ones,7 les83dogu,4kmi38dihc,5m hp98szja,2lug38lxgb,3mg x36fboy,1una63msew,1mgx 14days. 70 tablet 01/15/2024 03/18/2024 documented as [...] Ph.D. LAB BL OOD ADD-ON [facility] [address], [place] [address], [facility] [place] [address] [place] [address] documented in this encounter Visit Diagnoses Diagnosis Chronic Kidney Disease (CKD), Stage 3b Glomerular Filtration Rate (GFR) 30 To 44 (HCC) documented in this encounter Additional Health Concerns Assessment Noted Time PHQ-9 Depression Total Score: 1 09/10/20 23 2:06 PM CDT documented as of this encounter Care Teams Manager Of Tires Sales Relationship Specialty Start Date End Date Kylah Crum M.D. [address] [place] [phone] PCP - General Family Medicine 09/28/23 documented as of this encounter
--- OUTSIDE RECORDS SUMMARY | 2024-05-05 18:57 | XMS_ITS | Encounter Summary ---
Author Organization [facility] Address [address] [place] [address] Care Team Providers Care Hospice Consultant Name Role Phone Kylah Crum M.D. Primary Care Provider Encounter Details Date Type Department Care Team (Late st Contact Info) Description 02/01/2024 Orders Only Division of Nephrology and Hypertension in [place], [place] [address] [place] [address] Mare Arauz M.D., Ph.D. [address] [place] [address] Chronic Kidney Disease (CKD), Stage 3b Glomerular [...] Seymour M.D., Ph.D. LAB BL OOD ADD-ON [facility] [address], [place] [address], [facility] in [place] [address] [place] [address] documented in this encounter Visit Diagnoses Diagnosis Chronic Kidney Disease (CKD), Stage 3b Glomerular Filtration Rate (GFR) 30 To 44 (HCC)- Primary documented in this encounter Additional Health Concerns Assessment Noted Time PHQ-9 Depression Total Score: 1 09/10/20 23 2:06 PM CDT documented as of this encounter Care Teams Hospice Consultant Relationship Specialty Start Date End Date Kylah Crum M.D. [address] [place] [phone] PCP - General Family Medicine 09/28/23 documented as of this encounter
--- OUTSIDE RECORDS SUMMARY | 2024-05-05 18:57 | XMS_ITS | Encounter Summary ---
Author Organization [facility] Address [address] [place] [address] Care Team Providers Care Reinforcing Metal Worker Name Role Phone Kylah Crum M.D. Primary Care Provider Reason for Visit * Reason Onset Date Comments Appt Request 04/17/2024 Encounter Details Date Type Department Care Team (Latest Contact Info) Description 04/17/2024 Clinical Communication Division of Nephrology and Hypertension in [place], [place] [address] [place] [address] Mare Arauz M.D., Ph.D. [address] [place] [address] Appt Request Social History Tobacco Use Types [...] documented as of this encounter Care Teams Reinforcing Metal Worker Relationship Specialty Start Date End Date Kylah Crum M.D. [address] [place] [phone] PCP - General Family Medicine 09/28/23 documented as of this encounter
--- OUTSIDE RECORDS SUMMARY | 2024-05-05 18:57 | XMS_ITS | Encounter Summary ---
Author Organization [facility] Address [address] [place] [address] Care Team Providers Care Straw Hat Washer Operator Name Role Phone Kylah Crum M.D. Primary Care Provider Reason for Visit * Reason Comments Med Refill Encounter Details Date Type Department Care Team (Late st Contact Info) Description 02/11/2024 Refill Department of Cardiovascular Medicine in [place], [place] [address] [place] [address] Gudelia Soto M.D. [address] [place] [address] Med Refill Social History Tobacco Use Types [...] documented as of this encounter Care Teams Straw Hat Washer Operator Relationship Specialty Start Date End Date Kylah Crum M.D. [address] [place] [address] [place] [phone] PCP - General Family Medicine 09/28/23 documented as of this encounter
--- OUTSIDE RECORDS SUMMARY | 2024-05-05 18:57 | XMS_ITS ---
Author Organization [facility] Address [address] [place] [address] Care Team Providers Care Head Waiter Name Role Phone Unavailable Unavailable Unavailable Surgery Details Not on file Complications Check Surgery Details section. Procedure Estimated Blood Loss Check Surgery Details section. Procedure Findings Check Surgery Details section. Procedure Specimens Taken Check Surgery Details section.
--- OUTSIDE RECORDS SUMMARY | 2024-05-05 18:57 | XMS_ITS | Encounter Summary ---
Author Organization [facility] Address [address] [place] [address] Care Team Providers Care Billing Specialist Name Role Phone Kylah Crum M.D. Primary Care Provider Encounter Details Date Type Department Care Team (Latest Contact Info) Description 01/15/2024 Clinical Communication Department of Cardiovascular Medicine in [place], [place] [address] [place] [address] Eneida Loya, RJarrettNJarrett [address] [place] [address] Social History Tobacco Use Types Packs/Day Years [...] your living situation today? I have a [facility] place to live 08/29/2023 Sex [...] documented as of this encounter Care Teams Billing Specialist Relationship Specialty Start Date End Date Kylah Crum M.D. [address] [place] [address] [place] [phone] PCP - General Family Medicine 09/28/23 documented as of this encounter
--- OUTSIDE RECORDS SUMMARY | 2024-05-05 18:57 | XMS_ITS | Referral Summary ---
Author Organization [facility] Address [address] [place] [address] Care Team Providers Care Quality Process Lead Name Role Phone Kylah Crum M.D. Primary Care Provider [phone] Source Comments Patient records contain information from all sites at [facility]. For routine questions regarding patient records, call [phone] during business hours, M-F 8:00 AM - 5:00 PM Central Time. Record requests for emergency care only can be directed to [phone] at any time.[facility] Encounters Date Type Department Care Team Description 04/17/2024 Clinical Communication Division of Nephrology and Hypertension in [place], [place] [address] [place] [address] Mare Arauz M.D., Ph.D. Appt Request 04/17/2024 Clinical Communication Department of Cardiovascular Medicine in [place], [place] [address] [place] [address] Gudelia Soto M.D. bilateral leg swelling 04/15/2024 [facility] Kyl[facility] Crum M.D. Screening Abdominal Aortic Aneurysm; Diabetes Mellitus Type 2 (HCC) 03/18/2024 Refill Department of Cardiovascular Medicine in [place], [place] [address] [place] [address] Obinna Desai, P.A.-C. Med Refill 02/11/2024 Refill Department of Cardiovascular Medicine in [place], [place] [address] [place] [address] Gudelia Soto M.D. Med Refill 02/04/2024 10:49 AM CDT - 02/04/2024 11:59 PM CDT Hospital Encounter Department of Laboratory Medicine in [address] [facility] [place] [address] Mare Arauz M.D., Ph.D. Chronic Kidney Disease [...] crush or chew. 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 I have a [facility] place to live 08/29/2023 Sex and Gender Information Value Date Recorded Sex Assigned at Male 08/29/2023 11:06 AM CDT Gender Identity Male 08/29/2023 11:06 AM CDT Sexual Orientation Straight 08/29/2023 11 :06 AM CDT Last Filed Vital Signs Vital Sign Reading Time Taken Comments Blood Pressure 111/68 12/24/2023 1:40 PM AUTOMATION ANALYST Pulse 86 12/24/2023 1:40 PM AUTOMATION ANALYST Temperature 36.1 ??C (96.9 ??F) 10/01/2023 1 1:08 AM AUTOMATION ANALYST Respiratory Rate 20 10/01/2023 11:0 8 AM AUTOMATION ANALYST Oxygen Saturation 98% 10/01/2023 11: 08 AM AUTOMATION ANALYST Inhaled Oxygen Concentration - - Weight 85.2 kg (187 lb 13.3 oz) 12/25/2023 2:40 PM AUTOMATION ANALYST Height 169.5 cm (5' 6.73) 12/25/2023 2:40 PM CS T Body Mass Index 29.66 12/25/2023 2:40 PM AUTOMATION ANALYST Plan of Treatment Not on file Medical Devices Implanted Type Area Nursing Education Consultant Device Identifier Shelf Expiration Date Model / Serial / Lot Vlv Aort Cnf [facility] 23 - [id number] - [id number] Implanted:Qty: 1 on 09/19/2023 by Sarah Miller M.D., M.P.H. at [facility] Cardiac Valve Prosthesis N/A: Aortic Valve Artivion (Prev. CampusTap) 2028 ONXACE-2 3 / [id number] / Description:MRI conditional up to 3T, normal mode, per asphalt patcher. [email or web address] ation _All.pdf AFK Clp Hrzn Ti 24 Clp Md Akhil - [id number] Implanted:Qty: 1 on 09/19/2023 by Sarah Miller M.D., M.P.H. at [facility] Hardware e.g. pins/screws/r ods N/A: Chest [employer] [id number] 04/29/2028 [id number] / / [id number] Clp Hrzn Ti 6 Clp Md Akhil - [id number] Implanted:Qty: 1 on 09/19/2023 by Sarah Miller M.D., M.P.H. at [facility] Hardware e.g. pins/screws/r ods N/A: Chest [employer] [id number] / / Clp Hrzn Ti 24 Clp Sm Red - [id number] Implanted:Qty: 1 on 09/19/2023 by Sarah Miller M.D., M.P.H. at [facility] Hardware e.g. pins/screws/r ods N/A: Chest [employer] [id number] / / Clp Hrzn Ti 24 Clp Sm Red - [id number] Implanted:Qty: 1 on 09/19/2023 by Sarah Miller M.D., M.P.H. at [facility] Hardware e.g. pins/screws/r ods N/A: Chest [employer] [id number] / / [place] Surg Tfln 1x6 - [id number] Implanted:Qty: 1 on 09/19/2023 by Sarah Miller M.D., M.P.H. at [facility] Hardware e.g. pins/screws/r ods N/A: Chest Audiam [id number] / / Medtronic Linq-05/05/2019 Implanted:04/13 by Chet Badillo M.D., Ph.D. (Quantity not on file) Implantable Loop Recorder Chest Medtronic [id number] / [id number] / Description:MR Conditional 1 .5T and 3T - First level operating mode. - Jayro Abernathy 12/25/2023 Procedures Procedure Name Priority Date/Time Associated Diagnosis Comments BASIC METABOLIC PANEL, S/P Routine 02/04/2024 10:56 AM CDT Chronic Kidney Disease (CKD), Stage 3b Glomerular Filtration Rate (GFR) 30 To 44 (HCC) LIPID PANEL, S Routine 12/24/2023 9:44 AM AUTOMATION ANALYST Stenosis Aortic Valve Acquired HEMOGLOBIN A1C, B [...] M.D., Ph.D. LAB BL OOD ADD-ON [facility] [address], [place] [address], [facility] [place] [address], [place] [address] * Lipid Panel (12/24/2023 9:44 AM AUTOMATION ANALYST) Triglycerides 68 mg/dL 12/24/2023 1:00 PM AUTOMATION ANALYST DTL Comment: ----REFERENCE VALUE---- Normal: <150 mg/dL Borderline High: 150-199 mg/dL High: 200-499 mg/dL Very High: > or =500 mg/dL Cholesterol, Total 107 mg/dL 2023 1:00 PM AUTOMATION ANALYST DTL Comment: ----REFERENCE VALUE---- Desirable: < 200 mg/dL Borderline High: 200 - 239 mg/dL High: > or = 240 mg/dL Cholesterol, LDL, Calculated 50 mg/dL 12/24/2023 1:00 PM AUTOMATION ANALYST DTL Comment: ----REFERENCE VALUE---- Desirable: <100 mg/dL Above Desirable: 100-129 mg/dL Borderline High: 130-159 mg/dL High: 160-189 mg/dL Very High: >=190 mg/dL ----ADDITIONAL INFORMATION---- LDL cholesterol calculated using the Iglesias/NIH equation. Cholesterol, HDL, S 42 >=40 mg/dL 12/24/2023 1:00 PM AUTOMATION ANALYST DTL Cholesterol, Non-HDL, Calculated 65 mg/dL 12/24/2023 1:00 PM AUTOMATION ANALYST DTL Comment: ----REFERENCE VALUE---- Desirable: <130 mg/dL Above Desirable: 130-159 mg/dL Borderline High: 160-189 mg/dL High: 190-219 mg/dL Very High: > or =220 mg/dL Fasting (8 HR or more) yes 12/24/2023 10:18 AM AUTOMATION ANALYST DTL Blood (Blood, Venous) 12/24/2023 9:44 AM AUTOMATION ANALYST 12/24/2023 10:18 AM AUTOMATION ANALYST Gudelia Soto M.D. LAB BLOOD ADD-ON Performing Organization Address City/[facility] Co de Phone Number [address] [place] [address] * (ABNORMAL) Hemoglobin A1c (08/22/2023 5:14 AM CDT) Pathologist [facility] Hemoglobin A1c, B 6.2(H) 4.0 - 5.6 % 08/22/2023 7:37 AM CDT DTL Comment: Hemoglobin A1c values of 5.7-6.4 percent indicate an increased risk for developing diabetes mellitus. In diabetic patients, HbA1c goals should be discussed with healthcare provider. Blood (Blood, Venous) 08/22/2023 5:14 AM CDT 08/22/2023 5:49 AM CDT Cata Richards APRN.N.P., D.N.P. LAB BLOOD ADD-ON Performing Organization Address City/[facility]/ZIP Co de Phone Number [address] [place] [address] * Colonoscopy (11/21/2022) Pathologist [facility] EXT Colonoscopy Normal - See Scanned Report for Details Normal - See Scanned Report for Details, HIMS - Report Received and Scanned Historical Provider GI PROCEDURE ORDERAB LES from Last 3 Months or Most Recently Relevant to Health Maintenance Advance Directives For more information, please contact: [phone] * Full Code (Latest Code Status on [...] Answer Comments Full Code: Discussed Care Teams Quality Process Lead Relationship Specialty Start Date End Date Kylah Crum M.D. [address] [place] [address] [place] [address] PCP - General Family Medicine 09/28/23
--- OUTSIDE RECORDS SUMMARY | 2024-05-05 18:57 | XMS_ITS | Encounter Summary ---
Author Organization [facility] Address [address] [place] [address] Care Team Providers Care Disk Sharpener Name Role Phone Kylah Crum M.D. Primary Care Provider Encounter Details Date Type Department Care Team (Latest Contact Info) Description 12/26/2023 Clinical Communication Department of Cardiovascular Medicine in [place], [place] [address] [place] [address] Eneida Loya, RJarrettNJarrett [address] [place] [address] Social History Tobacco Use Types Packs/Day Years [...] documented as of this encounter Care Teams Disk Sharpener Relationship Specialty Start Date End Date Kylah Crum M.D. [address] [place] [address] [place] [address] PCP - General Family Medicine 09/28/23 documented as of this encounter
--- OUTSIDE RECORDS SUMMARY | 2024-05-05 18:57 | XMS_ITS | Encounter Summary ---
Author Organization [facility] Address [address] [place] [address] Care Team Providers Care Oyster Farmer Name Role Phone Kylah Crum M.D. Primary Care Provider Encounter Details Date Type Department Care Team (Latest Contact Info) Description 12/26/2023 Clinical Communication Department of Cardiovascular Medicine in [place], [place] [address] [place] [address] Eneida Loya, RJarrettNJarrett [address] [place] [address] Social History Tobacco Use Types Packs/Day Years [...] documented as of this encounter Care Teams Oyster Farmer Relationship Specialty Start Date End Date Kylah Crum M.D. [address] [place] [address] [place] [address] PCP - General Family Medicine 09/28/23 documented as of this encounter
--- OUTSIDE RECORDS SUMMARY | 2024-05-05 18:57 | XMS_ITS | Clinical Summary ---
Author Organization [facility] Address [address] [place] [address] Care Team Providers Care Blow Down Helper Name Role Phone Kylah Crum M.D. Primary Care Provider Source Comments Patient records contain information from all sites at [facility]. For routine questions regarding patient records, call [phone] during business hours, M-F 8:00 AM - 5:00 PM Central Time. Record requests for emergency care only can be directed to [phone] at any time.[facility] Allergies No known active allergies Medications [...] Active Problems Problem Noted Date Diagnosed Date Prison (Current) Anticoagulant Treatment 09/13 Bypass Coronary Artery Graft Status Post 023 Cardiac Surgery Status Post 09/24/2023 Effusion Pleural 09/24/2023 Device Cardiac Status Post 09/23/2023 Overview: Previously placed loop recorder Therapy Prison Antiplatelet 09/22/2023 Coronary Arterial Bypass Graft Status [...] Communication Division of Nephrology and Hypertension in [place], [place] [address] [place] [address] Mare Arauz M.D., Ph.D. Appt Request 04/17/2024 Clinical Communication Department of Cardiovascular Medicine in [place], [place] [address] [place] [address] Gudelia Soto M.D. bilateral leg swelling 04/15/2024 Orders Only [facility] Kyl[facility] Crum M.D. Screening Abdominal Aortic Aneurysm; Diabetes Mellitus Type 2 (HCC) 03/18/2024 Refill Department of Cardiovascular Medicine in [place], [place] [address] [place] [address] Obinna Desai, P.A.-C. Med Refill 02/11/2024 Refill Department of Cardiovascular Medicine in [place], [place] [address] [place] [address] Gudelia Soto M.D. Med Refill 02/04/2024 10:49 AM CDT - 02/04/2024 11:59 PM CDT Hospital Encounter Department of Laboratory Medicine in [place], [place] [address] [place] [address] Mare Arauz M.D., Ph.D. Chronic Kidney Disease (CKD), Stage 3b Glomerular Filtration Rate (GFR) 30 To 44 ([facility]) Discharge Disposition: Home or Self Care from [...] Comments Blood Pressure 111/68 12/24/2023 1:40 PM FASHION ADVISER Pulse 86 12/24/2023 1:40 PM FASHION ADVISER Temperature 36.1 ??C (96.9 ??F) 10/01/2023 1 1:08 AM FASHION ADVISER Respiratory Rate 20 10/01/2023 11:0 8 AM FASHION ADVISER Oxygen Saturation 98% 10/01/2023 11: 08 AM FASHION ADVISER Inhaled Oxygen Concentration - - Weight 85.2 kg (187 lb 13.3 oz) 12/25/2023 2:40 PM FASHION ADVISER Height 169.5 cm (5' 6.73) 12/25/2023 2:40 PM CS T Body Mass Index 29.66 12/25/2023 2:40 PM FASHION ADVISER Plan of Treatment Health Maintenance Due Date [...] Completed 12/24/2023 Medical Devices Implanted Type Area First Coat Operator Device Identifier Shelf Expiration Date Model / Serial / Lot Vlv Aort Cnf [facility] 23 - [id number] - [id number] Implanted:Qty: 1 on 09/19/2023 by Sarha Miller M.D., M.P.H. at [facility] Cardiac Valve Prosthesis N/A: Aortic Valve Artivion (Prev. CryoLife) 2028 ONXACE-2 3 / [id number] / Description:MRI conditional up to 3T, normal mode, per systems support engineer. [email or web address] ation _All.pdf AFK Clp Hrzn Ti 24 Nika [place] Akhil - [id number] Implanted:Qty: 1 on 09/19/2023 by Sarah Miller M.D., M.P.H. at [facility] Hardware e.g. pins/screws/r ods N/A: Chest Teleflex LLC [id number] 04/29/2028 [id number] / / [id number] Clp Hrzn Ti 6 Nika [place] Akhil - [id number] Implanted:Qty: 1 on 09/19/2023 by Sarah Miller M.D., M.P.H. at [facility] Hardware e.g. pins/screws/r ods N/A: Chest [employer]flex [employer] [id number] / / Clp Hrzn Ti 24 Clp Sm Red - [id number] Implanted:Qty: 1 on 09/19/2023 by Sarah Miller M.D., M.P.H. at [facility] Hardware e.g. pins/screws/r ods N/A: Chest Teleflex LLC [id number] / / Clp Hrzn Ti 24 Clp Sm Red - [id number] Implanted:Qty: 1 on 09/19/2023 by Sarah Miller M.D., M.P.H. at [facility] Hardware e.g. pins/screws/r ods N/A: Chest Teleflex [employer] [id number] / / Wagner Surg Tfln 1x6 - [id number] Implanted:Qty: 1 on 09/19/2023 by Sarah Miller M.D., M.P.H. at [facility] Hardware e.g. pins/screws/r ods N/A: Chest Wibki [id number] / / Medtronic Linq-05/05/2019 Implanted:04/13 by Chet Badillo M.D., Ph.D. (Quantity not on file) Implantable Loop Recorder Chest Medtronic LNQ11 / [id number] / Description:MR Conditional 1 .5T and 3T - First level operating mode. - Jayro Abernathy 12/25/2023 Procedures Procedure Name Priority Date/Time Associated Diagnosis Comments BASIC METABOLIC PANEL, S/P Routine 02/04/2024 10:56 AM CDT Chronic Kidney Disease (CKD), Stage 3b Glomerular Filtration Rate (GFR) 30 To 44 (HCC) LIPID PANEL, S Routine 12/24/2023 9:44 AM FASHION ADVISER Stenosis Aortic Valve Acquired HEMOGLOBIN A1C, B [...] Seymour M.D., Ph.D. LAB BL OOD ADD-ON [facility] [address] [place] [address], [facility] [place] [address] [place] [address] * Lipid Panel (12/24/2023 9:44 AM FASHION ADVISER) Triglycerides 68 mg/dL 12/24/2023 1:00 PM FASHION ADVISER DTL Comment: ----REFERENCE VALUE---- Normal: <150 mg/dL Borderline High: 150-199 mg/dL High: 200-499 mg/dL Very High: > or =500 mg/dL Cholesterol, Total 107 mg/dL 2023 1:00 PM FASHION ADVISER DTL Comment: ----REFERENCE VALUE---- Desirable: < 200 mg/dL Borderline High: 200 - 239 mg/dL High: > or = 240 mg/dL Cholesterol, LDL, Calculated 50 mg/dL 12/24/2023 1:00 PM FASHION ADVISER DTL Comment: ----REFERENCE VALUE---- Desirable: <100 mg/dL Above Desirable: 100-129 mg/dL Borderline High: 130-159 mg/dL High: 160-189 mg/dL Very High: >=190 mg/dL ----ADDITIONAL INFORMATION---- LDL cholesterol calculated using the Iglesias/NIH equation. Cholesterol, HDL, S 42 >=40 mg/dL 12/24/2023 1:00 PM FASHION ADVISER DTL Cholesterol, Non-HDL, Calculated 65 mg/dL 12/24/2023 1:00 PM FASHION ADVISER DTL Comment: ----REFERENCE VALUE---- Desirable: <130 mg/dL Above Desirable: 130-159 mg/dL Borderline High: 160-189 mg/dL High: 190-219 mg/dL Very High: > or =220 mg/dL Fasting (8 HR or more) yes 12/24/2023 10:18 AM FASHION ADVISER DTL Blood (Blood, Venous) 12/24/2023 9:44 AM FASHION ADVISER 12/24/2023 10:18 AM FASHION ADVISER Gudelia Soto M.D. LAB BLOOD ADD-ON Performing Organization Address [facility] de Phone Number [facility] [address] [place] [address], [place] [address] * (ABNORMAL) Hemoglobin A1c (08/22/2023 5:14 AM [...] D.N.P. LAB BLOOD ADD-ON Performing Organization Address City/[facility]/ZIP Co de Phone Number [facility] [address] [place] [address], [facility] D[facility] [address] [place] [address] [place] [address] * Colonoscopy (11/21/2022) EXT Colonoscopy Normal - See Scanned Report for Details Normal - See Scanned Report for Details, HIMS - Report Received and Scanned Historical Provider GI PROCEDURE ORDERAB LES from Last 3 Months or Most Recently Relevant to Health Maintenance Advance Directives For more information, please contact: [phone] * Full Code (Latest Code Status on [...] Answer Comments Full Code: Discussed Care Teams Blow Down Helper Relationship Specialty Start Date End Date Kylah Crum M.D. [address] [place] [address] PCP - General Family Medicine 09/28/23
--- OUTSIDE RECORDS SUMMARY | 2024-05-05 18:57 | XMS_ITS | Clinical Summary ---
Author Organization [facility] Address [place], [place] [address] Care Team Providers Care Medical Anthropologist Name Role Phone Kylah Crum Staceymodesta TEDDY Primary Care Provider Medications No known medications Encounters Date Type Department Care Team Description 02/20/2024 11:08 AM CDT - 02/20/2024 11:59 PM CDT Hospital Encounter [address] [address] 02/20/2024 Travel 02/18/2024 11:14 AM CDT - 02/18/2024 11:59 PM CDT Hospital Encounter [address] [address] 02/18/2024 Travel 02/15/2024 11:16 AM CDT - 02/15/2024 11:59 PM CDT Hospital Encounter [address] [address] 02/15/2024 Travel 02/13/2024 11:10 AM CDT - 02/13/2024 11:59 PM CDT Hospital Encounter [address] [address] 02/13/2024 Travel 02/11/2024 11:15 AM CDT - 02/11/2024 11:59 PM CDT Hospital Encounter [address] [address] 02/11/2024 Travel 02/08/2024 11:13 AM CDT - 02/08/2024 11:59 PM CDT Hospital Encounter [facility] [address] [place] [address] 02/08/2024 Travel 02/06/2024 11:13 AM CDT - 02/06/2024 11:59 PM CDT Hospital Encounter [facility] [address] [facility] [place] [address] 02/06/2024 Travel 02/04/2024 10:59 AM CDT - 02/04/2024 11:59 PM CDT Hospital Encounter [facility] [address] [facility] [address] 02/04/2024 Travel from Last 3 Months Social History Tobacco Use Types Packs/Day Years Used Date Smoking Tobacco: Never Assessed Sex and Gender Information Value Date Recorded Sex Assigned at Not on file Gender Identity Not on file Sexual Orientation Not on file Obstetrics History Last Filed Vital Signs Vital Sign Reading Time Taken Comments Blood Pressure 107/69 10/03/2023 4:23 PM CONTRACT NEGOTIATION SPECIALIST Pulse 84 10/03/2023 4:23 PM CONTRACT NEGOTIATION SPECIALIST Temperature 36.8 ??C (98.2 ??F) 10/03/2023 3:16 PM CS T Respiratory Rate 20 10/03/2023 3:16 PM CONTRACT NEGOTIATION SPECIALIST Oxygen Saturation 98% 10/03/2023 4:23 PM CONTRACT NEGOTIATION SPECIALIST Inhaled Oxygen Concentration - - Weight 90.7 kg (200 lb) 10/03/2023 3:08 PM CONTRACT NEGOTIATION SPECIALIST Height 172.7 cm (5' 8) 10/03/2023 3:08 PM CONTRACT NEGOTIATION SPECIALIST Body Mass Index 30.41 10/03/2023 3:08 PM CONTRACT NEGOTIATION SPECIALIST Plan of Treatment Health Maintenance Due Date [...] COVID-19 vaccine series ( - 2022- season) 3 Influenza for age 65+ 07/13/2024 Procedures Procedure Name Priority Date/Time Associated Diagnosis Comments SCAN-CARDIAC REHABILITATION 02/20/2024 11:13 AM CDT SCAN-CARDIAC REHABILITATION 02/18/2024 11:21 AM CDT SCAN-CARDIAC REHABILITATION 02/15/2024 11:23 AM CDT SCAN-CARDIAC REHABILITATION 02/13/2024 11:19 AM CDT SCAN-CARDIAC REHABILITATION 02/11/2024 11:23 AM CDT SCAN-CARDIAC REHABILITATION 02/08/2024 11:20 AM CDT SCAN-CARDIAC REHABILITATION 02/06/2024 11:22 AM CDT SCAN-CARDIAC REHABILITATION 02/04/2024 11:12 AM CDT from Last 3 Months Results * SCAN-CARDIAC REHABILITATION (02/20/2024 11:13 AM CDT) Only the most recent of8 resultswithin the time period is included. Scanner OTHER from Last 3 Months Care Teams Medical Anthropologist Relationship Specialty Start Date End Date Kylah Crum MBBS [address] [place] [address] [id number] PCP - General Family Practice 10/03/23
--- OUTSIDE RECORDS SUMMARY | 2024-05-05 18:57 | XMS_ITS | Encounter Summary ---
Author Organization [facility] Address [address] [place] [address] Care Team Providers Care Elevator Examiner And Adjuster Name Role Phone Kylah Crum M.D. Primary Care Provider [phone] Reason for Visit * Reason Comments Med Refill Encounter Details Date Type Department Care Team ([facility] st Contact Info) Description 03/18/2024 Refill Department of Cardiovascular Medicine in [place], [place] [address] [place] [address] Obinna Desai, P.A.-C. [address] [place] [address] Med Refill Social History Tobacco Use Types [...] documented as of this encounter Care Teams Elevator Examiner And Adjuster Relationship Specialty Start Date End Date Kylah Crum M.D. [address] [place] [phone] PCP - General Family Medicine 09/28/23 documented as of this encounter
--- OUTSIDE RECORDS SUMMARY | 2024-05-05 18:57 | XMS_ITS | Encounter Summary ---
Author Organization [facility] Address [address] [place] [address] Care Team Providers Care Esthetician Facialist Name Role Phone Kylah Crum M.D. Primary Care Provider Reason for Visit * Reason Onset Date Comments Results 01/28/2024 [facility] Encounter Details Date Type Department Care Team (Latest Contact Info) Description 01/28/2024 Clinical Communication Department of Family Medicine, [facility], in [place], [place] [address] [place] [address] Kylah Crum M.D. [address] [place] [address] Results ([facility]) Social History [...] INR is managed with his provider in [place]. Information/Education: patient/caller able to teach back The following references were used: none documented in this encounter Plan of Treatment Not on file documented as of this encounter Visit Diagnoses Not on filedocumented in this encounter Additional Health Concerns Assessment Noted Time PHQ-9 Depression Total Score: 1 09/10/20 2:06 PM CDT documented as of this encounter Care Teams Esthetician Facialist Relationship Specialty Start Date End Date Kylah Crum M.D. [address] [place] [phone] PCP - General Family Medicine 09/28/23 documented as of this encounter
== END 2024-05-01 10:56 | disposition home or self-care (01) ==
LOC: NFLDREF 05-05 18:55
PROVIDERS: PCP Internal Medicine; Referring Provider Internal Medicine; Visit Provider Family Medicine
DX: N18.4 Chronic kidney disease, stage 4 (severe) (principal); Z79.01 Long term (current) use of anticoagulants
CPT/HCPCS: 80048

== ENCOUNTER 2024-05-08 11:14 | Outpatient (CLI) | payer MEDICARE, SELFPAY ==
--- OUTSIDE RECORDS SUMMARY | 2024-05-08 11:19 | XMS_ITS | Encounter Summary ---
Author Organization [facility] Address [address] [place] [address] Care Team Providers Care Flue Lining Dipper Name Role Phone Kylah Crum M.D. Primary Care Provider [phone] Reason for Visit * Reason Onset Date Comments Appt Request 04/17/2024 Encounter Details Date Type Department Care Team (Latest Contact Info) Description 04/17/2024 Clinical Communication Division of Nephrology and Hypertension in [place], [place] [address] [place] [address] Mare Arauz M.D., Ph.D. [address] [place] [address] Appt Request Social History Tobacco Use Types [...] your living situation today? I have a [facility] place to live 08/29/2023 Sex and [...] documented as of this encounter Care Teams Flue Lining Dipper Relationship Specialty Start Date End Date Kylah Crum M.D. [address] [place] [phone] PCP - General Family Medicine 09/28/23 documented as of this encounter
--- OUTSIDE RECORDS SUMMARY | 2024-05-08 11:19 | XMS_ITS ---
Author Organization [facility] Address [address] [place] [address] Care Team Providers Care Lens Silverer Name Role Phone Unavailable Unavailable Unavailable Surgery Details Not on file Complications Check Surgery Details section. Procedure Estimated Blood Loss Check Surgery Details section. Procedure Findings Check Surgery Details section. Procedure Specimens Taken Check Surgery Details section.
--- OUTSIDE RECORDS SUMMARY | 2024-05-08 11:19 | XMS_ITS | Encounter Summary ---
Author Organization [facility] Address [address] [place] [address] Care Team Providers Care Insulation Cutter Name Role Phone Kylah Crum M.D. Primary Care Provider [phone] Reason for Visit * Reason Onset Date Comments bilateral leg swelling 04/17/2024 Encounter Details Date Type Department Care Team (Latest Contact Info) Description 04/17/2024 Clinical Communication Department of Cardiovascular Medicine in [place], [place] [address] [place] [address] Gudelia Soto M.D. [address] [place] [address] bilateral leg swelling Social History Tobacco Use [...] Phone call returned to ANGIE Henriquez at [facility]. She had left for the day so the community youth secretary left a message with our phone number. * Telephone Encounter - Lester Phelps, R.N. - 04/17/2024 3:02 PM CDT Phone call returned to ANGIE Henriquez at the [facility]. Mr. aHrris was in clinic for an INR check [...] Harris to see another provider at the [facility] to be assessed. Addendum: Phone call [...] documented as of this encounter Care Teams Insulation Cutter Relationship Specialty Start Date End Date yKlah Crum M.D. [address] [place] [phone] PCP - General Family Medicine 09/28/23 documented as of this encounter
--- OUTSIDE RECORDS SUMMARY | 2024-05-08 11:19 | XMS_ITS | Clinical Summary ---
Author Organization [facility] Address [address] [place] [address] Care Team Providers Care Ink Jet Operator Name Role Phone Kylah Crum M.D. Primary Care Provider Source Comments Patient records contain information from all sites at [facility]. For routine questions regarding patient records, call [phone] during business hours, M-F 8:00 AM - 5:00 PM Central Time. Record requests for emergency care only can be directed to [phone] at any time.[facility] Allergies No known active allergies Medications [...] Active Problems Problem Noted Date Diagnosed Date Penitentiary (Current) Anticoagulant Treatment 09/13 Bypass Coronary Artery Graft Status Post 023 Cardiac Surgery Status Post 09/24/2023 Effusion Pleural 09/24/2023 Device Cardiac Status Post 09/23/2023 Overview: Previously placed loop recorder Therapy Penitentiary Antiplatelet 09/22/2023 Coronary Arterial Bypass Graft Status [...] Communication Division of Nephrology and Hypertension in [place], [place] [address] [place] [address] Mare Arauz M.D., Ph.D. Appt Request 04/17/2024 Clinical Communication Department of Cardiovascular Medicine in [place], [place] [address] [place] [address] Gudelia Soto M.D. bilateral leg swelling 04/15/2024 Orders Only [facility] PCP TH Kylah Coronel M.D. Screening Abdominal Aortic Aneurysm; Diabetes Mellitus Type 2 (HCC) 03/18/2024 Refill Department of Cardiovascular Medicine in [place], [place] [address] [place] [address] Obinna Desai, P.A.-C. Med Refill 02/11/2024 Refill Department of Cardiovascular Medicine in [place], [place] [address] [place] [address] Gudelia Soto M.D. Med Refill from Last 3 Months Family History Medical [...] your living situation today? I have a [facility] place to live 08/29/2023 Sex and Gender Information Value Date Recorded Sex Assigned at Male 08/29/2023 11:06 AM CDT Gender Identity Male 08/29/2023 11:06 AM CDT Sexual Orientation Straight 08/29/2023 11 :06 AM CDT Last Filed Vital Signs Vital Sign Reading Time Taken Comments Blood Pressure 111/68 12/24/2023 1:40 PM ZIG ZAG SPRING MACHINE OPERATOR Pulse 86 12/24/2023 1:40 PM ZIG ZAG SPRING MACHINE OPERATOR Temperature 36.1 ??C (96.9 ??F) 10/01/2023 1 1:08 AM ZIG ZAG SPRING MACHINE OPERATOR Respiratory Rate 20 10/01/2023 11:0 8 AM ZIG ZAG SPRING MACHINE OPERATOR Oxygen Saturation 98% 10/01/2023 11: 08 AM ZIG ZAG SPRING MACHINE OPERATOR Inhaled Oxygen Concentration - - Weight 85.2 kg (187 lb 13.3 oz) 12/25/2023 2:40 PM ZIG ZAG SPRING MACHINE OPERATOR Height 169.5 cm (5' 6.73) 12/25/2023 2:40 PM CS T Body Mass Index 29.66 12/25/2023 2:40 PM ZIG ZAG SPRING MACHINE OPERATOR Plan of Treatment Health Maintenance Due Date [...] Completed 12/24/2023 Medical Devices Implanted Type Area Community Services Officer Device Identifier Shelf Expiration Date Model / Serial / Lot Vlv Aort Cnf [facility] 23 - [id number] - [id number] Implanted:Qty: 1 on 09/19/2023 by Sarah Miller M.D., M.P.H. at [facility] Cardiac Valve Prosthesis N/A: Aortic Valve Artivion (Prev. CryoLife) 2028 ONXACE-2 3 / [id number] / Description:MRI conditional up to 3T, normal mode, per bolt threader. [email or web address] ation _All.pdf AFK Clp Hrzn Ti 24 Clp Akhil - [id number] Implanted:Qty: 1 on 09/19/2023 by Sarah Miller M.D., M.P.H. at [facility] Hardware e.g. pins/screws/r ods N/A: Chest [employer] [id number] 04/29/2028 [id number] / / [id number] Clp Hrzn Ti 6 Clp Akhil - [id number] Implanted:Qty: 1 on 09/19/2023 by Sarah Miller M.D., M.P.H. at [facility] Hardware e.g. pins/screws/r ods N/A: Chest [employer] [id number] / / Clp Hrzn Ti 24 Clp Sm Red - [id number] Implanted:Qty: 1 on 09/19/2023 by Sarah Miller M.D., M.P.H. at [facility] Hardware e.g. pins/screws/r ods N/A: Chest [employer] [id number] / / Clp Hrzn Ti 24 Clp Sm Red - [id number] Implanted:Qty: 1 on 09/19/2023 by Sarah Miller M.D., M.P.H. at [facility] Hardware e.g. pins/screws/r ods N/A: Chest [employer] [id number] / / [place] Surg Tfln 1x6 - [id number] Implanted:Qty: 1 on 09/19/2023 by Sarah Miller M.D., M.P.H. at [facility] Hardware e.g. pins/screws/r ods N/A: Qnovo [id number] / / Medtronic Linq-05/05/2019 Implanted:04/13 by Chet Badillo M.D., Ph.D. (Quantity not on file) Implantable Loop Recorder Chest Medtronic [id number] / [id number] / Description:MR [place] 1 .5T and 3T - First level operating mode. - Jayro Josemanuel 12/25/2023 Procedures Procedure Name Priority Date/Time Associated Diagnosis Comments BASIC METABOLIC PANEL, S/P Routine 02/04/2024 10:56 AM CDT Chronic Kidney Disease (CKD), Stage 3b Glomerular Filtration Rate (GFR) 30 To 44 (HCC) LIPID PANEL, S Routine 12/24/2023 9:44 AM ZIG ZAG SPRING MACHINE OPERATOR Stenosis Aortic Valve Acquired HEMOGLOBIN A1C, [...] Seymour M.D., Ph.D. LAB BL OOD ADD-ON [facility] [address], [place] [address], [facility] [place] [address] [place] [address] * Lipid Panel (12/24/2023 9:44 AM ZIG ZAG SPRING MACHINE OPERATOR) Triglycerides 68 mg/dL 12/24/2023 1:00 PM ZIG ZAG SPRING MACHINE OPERATOR DTL Comment: ----REFERENCE VALUE---- Normal: <150 mg/dL Borderline High: 150-199 mg/dL High: 200-499 mg/dL Very High: > or =500 mg/dL Cholesterol, Total 107 mg/dL 2023 1:00 PM ZIG ZAG SPRING MACHINE OPERATOR DTL Comment: ----REFERENCE VALUE---- Desirable: < 200 mg/dL Borderline High: 200 - 239 mg/dL High: > or = 240 mg/dL Cholesterol, LDL, Calculated 50 mg/dL 12/24/2023 1:00 PM ZIG ZAG SPRING MACHINE OPERATOR DTL Comment: ----REFERENCE VALUE---- Desirable: <100 mg/dL Above Desirable: 100-129 mg/dL Borderline High: 130-159 mg/dL High: 160-189 mg/dL Very High: >=190 mg/dL ----ADDITIONAL INFORMATION---- LDL cholesterol calculated using the Iglesias/NIH equation. Cholesterol, HDL, S 42 >=40 mg/dL 12/24/2023 1:00 PM ZIG ZAG SPRING MACHINE OPERATOR DTL Cholesterol, Non-HDL, Calculated 65 mg/dL 12/24/2023 1:00 PM ZIG ZAG SPRING MACHINE OPERATOR DTL Comment: ----REFERENCE VALUE---- Desirable: <130 mg/dL Above Desirable: 130-159 mg/dL Borderline High: 160-189 mg/dL High: 190-219 mg/dL Very High: > or =220 mg/dL Fasting (8 HR or more) yes 12/24/2023 10:18 AM ZIG ZAG SPRING MACHINE OPERATOR DTL Blood (Blood, Venous) 12/24/2023 9:44 AM ZIG ZAG SPRING MACHINE OPERATOR 12/24/2023 10:18 AM ZIG ZAG SPRING MACHINE OPERATOR Gudelia Soto M.D. LAB BLOOD ADD-ON Performing Organization Address [facility] Co de Phone Number [facility] [address] [place] [address] * (ABNORMAL) Hemoglobin A1c (08/22/2023 5:14 AM [...] D.N.P. LAB BLOOD ADD-ON Performing Organization Address City/[facility]/ZIP Co de Phone Number [facility] [address] [place] [address], [facility] [place] [address] * Colonoscopy (11/21/2022) EXT Colonoscopy Normal - See Scanned Report for Details Normal - See Scanned Report for Details, HIMS - Report Received and Scanned Historical Provider GI PROCEDURE ORDERAB LES from Last 3 Months or Most Recently Relevant to Health Maintenance Advance Directives For more information, please contact: [phone] * Full Code (Latest Code Status on [...] Answer Comments Full Code: Discussed Care Teams Ink Jet Operator Relationship Specialty Start Date End Date Kylah Crum M.D. [address] [place] [address] [place] [address] PCP - General Family Medicine 09/28/23
--- OUTSIDE RECORDS SUMMARY | 2024-05-08 11:19 | XMS_ITS | Encounter Summary ---
Author Organization [facility] Address [address] [place] [address] Care Team Providers Care Women'S Studies Professor Name Role Phone Kylah Crum M.D. Primary Care Provider Reason for Visit * Reason Comments Med Refill Encounter Details Date Type Department Care Team (Late st Contact Info) Description 02/11/2024 Refill Department of Cardiovascular Medicine in [place], [place] [address] [place] [address] Gudelia Soto M.D. [address] [place] [address] Med Refill Social History Tobacco Use Types [...] documented as of this encounter Care Teams Women'S Studies Professor Relationship Specialty Start Date End Date Kylah Crum M.D. [address] [place] [address] [place] [phone] PCP - General Family Medicine 09/28/23 documented as of this encounter
--- OUTSIDE RECORDS SUMMARY | 2024-05-08 11:19 | XMS_ITS | Referral Summary ---
Author Organization [facility] Address [address] [place] [address] Care Team Providers Care Computer Systems Security Analyst Name Role Phone Kylah Crum M.D. Primary Care Provider [phone] Source Comments Patient records contain information from all sites at [facility]. For routine questions regarding patient records, call [phone] during business hours, M-F 8:00 AM - 5:00 PM Central Time. Record requests for emergency care only can be directed to [phone] at any time.[facility] Encounters Date Type Department Care Team Description 04/17/2024 Clinical Communication Division of Nephrology and Hypertension in [place], [place] [address] [place] [address] Mare Arauz M.D., Ph.D. Appt Request 04/17/2024 Clinical Communication Department of Cardiovascular Medicine in [place], [place] [address] [place] [address] Gudelia Soto M.D. bilateral leg swelling 04/15/2024 [facility] K[facility]rum M.D. Screening Abdominal Aortic Aneurysm; Diabetes Mellitus Type 2 (HCC) 03/18/2024 Refill Department of Cardiovascular Medicine in [place], [place] [address] [place] [address] Obinna Desai, P.A.-C. Med Refill 02/11/2024 Refill Department of Cardiovascular Medicine in [place], [place] [address] [place] [address] Gudelia Soto M.D. 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 08/19/2023 09/18/2023 [...] Comments Blood Pressure 111/68 12/24/2023 1:40 PM CORE LOADER Pulse 86 12/24/2023 1:40 PM CORE LOADER Temperature 36.1 ??C (96.9 ??F) 10/01/2023 1 1:08 AM CORE LOADER Respiratory Rate 20 10/01/2023 11:0 8 AM CORE LOADER Oxygen Saturation 98% 10/01/2023 11: 08 AM CORE LOADER Inhaled Oxygen Concentration - - Weight 85.2 kg (187 lb 13.3 oz) 12/25/2023 2:40 PM CORE LOADER Height 169.5 cm (5' 6.73) 12/25/2023 2:40 PM CS T Body Mass Index 29.66 12/25/2023 2:40 PM CORE LOADER Plan of Treatment Not on file Medical Devices Implanted Type Area Pharmacists Device Identifier Shelf Expiration Date Model / Serial / Lot Vlv Aort Cnf [facility] 23 - [id number] - [id number] Implanted:Qty: 1 on 09/19/2023 by Sarah Miller M.D., M.P.H. at [facility] Cardiac Valve Prosthesis N/A: Aortic Valve Artivion (Prev. CryoLife) 2028 ONXACE-2 3 / [id number] / Description:MRI conditional up to 3T, normal mode, per battery tester and repairer. [email or web address] ation _All.pdf AFK Clp Hrzn Ti 24 Clp Md Akhil - [id number] Implanted:Qty: 1 on 09/19/2023 by Sarah Miller M.D., M.P.H. at [facility] Hardware e.g. pins/screws/r ods N/A: Chest Teleflex [employer] [id number] 04/29/2028 [id number] / / [id number] Clp Hrzn Ti 6 Clp Md Akhil - [id number] Implanted:Qty: 1 on 09/19/2023 by Sarah Miller M.D., M.P.H. at [facility] Hardware e.g. pins/screws/r ods N/A: Chest [employer]flex [employer] [id number] / / Clp Hrzn Ti 24 Clp Sm Red - [id number] Implanted:Qty: 1 on 09/19/2023 by Sarah Miller M.D., M.P.H. at [facility] Hardware e.g. pins/screws/r ods N/A: Chest [employer]flex [employer] [id number] / / Clp Hrzn Ti 24 Clp Sm Red - [id number] Implanted:Qty: 1 on 09/19/2023 by Sarah Miller M.D., M.P.H. at [facility] Hardware e.g. pins/screws/r ods N/A: Chest [employer]flex [employer] [id number] / / [place] Surg Tfln 1x6 - [id number] Implanted:Qty: 1 on 09/19/2023 by Sarah Miller M.D., M.P.H. at [facility] Hardware e.g. pins/screws/r ods N/A: Chest JK-Group [id number] / / Medtronic Linq-05/05/2019 Implanted:04/13 by Chet Badillo M.D., Ph.D. (Quantity not on file) Implantable Loop Recorder Chest Medtronic LNQ11 / [id number] / Description:MR Phill 1 .5T and 3T - First level operating mode. - Jayro Abernathy 12/25/2023 Procedures Procedure Name Priority Date/Time Associated Diagnosis Comments BASIC METABOLIC PANEL, S/P Routine 02/04/2024 10:56 AM CDT Chronic Kidney Disease (CKD), Stage 3b Glomerular Filtration Rate (GFR) 30 To 44 (HCC) LIPID PANEL, S Routine 12/24/2023 9:44 AM CORE LOADER Stenosis Aortic Valve Acquired HEMOGLOBIN A1C, B [...] Seymour M.D., Ph.D. LAB BL OOD ADD-ON [facility] [address] [place] [address], [facility] OWAT [facility] [place] [address] [place] [address] * Lipid Panel (12/24/2023 9:44 AM CORE LOADER) Triglycerides 68 mg/dL 12/24/2023 1:00 PM CORE LOADER DTL Comment: ----REFERENCE VALUE---- Normal: <150 mg/dL Borderline High: 150-199 mg/dL High: 200-499 mg/dL Very High: > or =500 mg/dL Cholesterol, Total 107 mg/dL 2023 1:00 PM CORE LOADER DTL Comment: ----REFERENCE VALUE---- Desirable: < 200 mg/dL Borderline High: 200 - 239 mg/dL High: > or = 240 mg/dL Cholesterol, LDL, Calculated 50 mg/dL 12/24/2023 1:00 PM CORE LOADER DTL Comment: ----REFERENCE VALUE---- Desirable: <100 mg/dL Above Desirable: 100-129 mg/dL Borderline High: 130-159 mg/dL High: 160-189 mg/dL Very High: >=190 mg/dL ----ADDITIONAL INFORMATION---- LDL cholesterol calculated using the Iglesias/NIH equation. Cholesterol, HDL, S 42 >=40 mg/dL 12/24/2023 1:00 PM CORE LOADER DTL Cholesterol, Non-HDL, Calculated 65 mg/dL 12/24/2023 1:00 PM CORE LOADER DTL Comment: ----REFERENCE VALUE---- Desirable: <130 mg/dL Above Desirable: 130-159 mg/dL Borderline High: 160-189 mg/dL High: 190-219 mg/dL Very High: > or =220 mg/dL Fasting (8 HR or more) yes 12/24/2023 10:18 AM CORE LOADER DTL Blood (Blood, Venous) 12/24/2023 9:44 AM CORE LOADER 12/24/2023 10:18 AM CORE LOADER Gudelia Soto M.D. LAB BLOOD ADD-ON Performing Organization Address City/[facility]/ZIP Co de Phone Number [facility] [address] [place] [address], [facility] [address] [place] [address] * (ABNORMAL) Hemoglobin A1c (08/22/2023 5:14 AM [...] D.N.P. LAB BLOOD ADD-ON Performing Organization Address City/[facility] Co de Phone Number [facility] [address] [place] [address], [facility] [address] [place] [address] * Colonoscopy (11/21/2022) EXT Colonoscopy Normal - See Scanned Report for Details Normal - See Scanned Report for Details, HIMS - Report Received and Scanned Historical Provider GI PROCEDURE ORDERAB LES from Last 3 Months or Most Recently Relevant to Health Maintenance Advance Directives For more information, please contact: [phone] * Full Code (Latest Code Status on [...] Answer Comments Full Code: Discussed Care Teams Computer Systems Security Analyst Relationship Specialty Start Date End Date Kylah Crum M.D. [address] [place] [phone] PCP - General Family Medicine 09/28/23
--- OUTSIDE RECORDS SUMMARY | 2024-05-08 11:19 | XMS_ITS | Encounter Summary ---
Author Organization [facility] Address [address] [place] [address] Care Team Providers Care Floral Arranger Name Role Phone Kylah Crum M.D. Primary Care Provider [phone] Reason for Referral * Outpatient (Routine) - Authorized Specialty Diagnoses / Procedures Referred By Sebas gimenez Referred To Contact Kylah Crum M.D. [address] [place] [address] [facility] Region Referral ID Status Reason Start Date Expiration Date V isits Requested Visits Authorized [id number] Authorized 04/15/2024 10/15/2025 1 1 Scheduling Instructions Nurse AWV Do not schedule prior to due date to ensure insurance coverage Visit: Medicare Annual Wellness Never done. * Outpatient (Routine) - Authorized Specialty Diagnoses / Procedures Referred By Sebas gimenez Referred To Contact Diagnoses Screening Abdominal Aortic Aneurysm Procedures US Aorta AAA Screening Kylah Crum M.D. [address] [place] [address] [facility] Region Referral ID Status Reason Start Date Expiration Date V isits Requested Visits Authorized [id number] Authorized 04/15/2024 04/15/2025 1 1 Encounter Details Date Type Department Care Team (Late st Contact Info) Description 04/15/2024 Orders Only [facility] PCP [facility] Ayuob, Mysoon M, M.D. [address] [place] [address] [place] [address] Screening Abdominal Aortic Aneurysm; Diabetes Mellitus [...] your [facility] situation today? [facility] 08/29/2023 Sex [...] Schedule Primary Care nurse visit (clinic) - [facility]; Medicare Annual Wellness Outpatient Referral Routine Expected: 05/13/2024, Expires: 10/12/2024 documented as of this encounter Visit Diagnoses Diagnosis Screening Abdominal Aortic Aneurysm Diabetes Mellitus Type 2 (HCC) documented in this encounter Additional Health Concerns Assessment Noted Time PHQ-9 Depression Total Score: 1 09/10/20 2:06 PM CDT documented as of this encounter Care Teams Floral Arranger Relationship Specialty Start Date End Date Kylah Crum M.D. [address] [place] [phone] PCP - General Family Medicine 09/28/23 documented as of this encounter
--- OUTSIDE RECORDS SUMMARY | 2024-05-08 11:19 | XMS_ITS | Encounter Summary ---
Author Organization [facility] Address [address] [place] [address] Care Team Providers Care Customer Leader Name Role Phone Kylah Crum M.D. Primary Care Provider [phone] Reason for Visit * Reason Comments Med Refill Encounter Details Date Type Department Care Team ([facility] st Contact Info) Description 03/18/2024 Refill Department of Cardiovascular Medicine in [place], [place] [address] [place] [address] Obinna Desai, P.A.-C. [address] [place] [address] Med Refill Social History Tobacco Use Types [...] his prednisone taper laid out by Dr. Soot. * Telephone Encounter - Nusrat Longoria - [...] as of this encounter Care Teams Customer Leader Relationship Specialty Start Date End Date Kylah Crum M.D. [address] [place] [phone] PCP - General Family Medicine 09/28/23 documented as of this encounter
--- OUTSIDE RECORDS SUMMARY | 2024-05-08 11:20 | XMS_ITS | Clinical Summary ---
Author Organization [facility] Address [place], [place] [address] Care Team Providers Care Safety Companion Name Role Phone Kylah Crum Staceymodesta TEDDY Primary Care Provider Medications No known medications Encounters Date Type Department Care Team Description 02/20/2024 11:08 AM CDT - 02/20/2024 11:59 PM CDT Hospital Encounter [address] [address] 02/20/2024 Travel 02/18/2024 11:14 AM CDT - 02/18/2024 11:59 PM CDT Hospital Encounter [address] [address] 02/18/2024 Travel 02/15/2024 11:16 AM CDT - 02/15/2024 11:59 PM CDT Hospital Encounter [address] [address] 02/15/2024 Travel 02/13/2024 11:10 AM CDT - 02/13/2024 11:59 PM CDT Hospital Encounter [address] [address] 02/13/2024 Travel 02/11/2024 11:15 AM CDT - 02/11/2024 11:59 PM CDT Hospital Encounter [address] [address] 02/11/2024 Travel 02/08/2024 11:13 AM CDT - 02/08/2024 11:59 PM CDT Hospital Encounter [facility] [address] [place] [address] 02/08/2024 Travel 02/06/2024 11:13 AM CDT - 02/06/2024 11:59 PM CDT Hospital Encounter [facility] [address] [place] [address] 02/06/2024 Travel from Last 3 Months Social History Tobacco Use Types Packs/Day Years Used Date Smoking Tobacco: Never Assessed Sex and Gender Information Value Date Recorded Sex Assigned at Not on file Gender Identity Not on file Sexual Orientation Not on file Obstetrics History Last Filed Vital Signs Vital Sign Reading Time Taken Comments Blood Pressure 107/69 10/03/2023 4:23 PM FIXED WING PILOT Pulse 84 10/03/2023 4:23 PM FIXED WING PILOT Temperature 36.8 ??C (98.2 ??F) 10/03/2023 3:16 PM CS T Respiratory Rate 20 10/03/2023 3:16 PM FIXED WING PILOT Oxygen Saturation 98% 10/03/2023 4:23 PM FIXED WING PILOT Inhaled Oxygen Concentration - - Weight 90.7 kg (200 lb) 10/03/2023 3:08 PM FIXED WING PILOT Height 172.7 cm (5' 8) 10/03/2023 3:08 PM FIXED WING PILOT Body Mass Index 30.41 10/03/2023 3:08 PM FIXED WING PILOT Plan of Treatment Health Maintenance Due Date [...] CDT SCAN-CARDIAC REHABILITATION 02/06/2024 11:22 AM CDT from Last 3 Months Results * SCAN-CARDIAC REHABILITATION (02/20/2024 11:13 AM CDT) Only the most recent of7 resultswithin the time period is included. Scanner OTHER from Last 3 Months Care Teams Safety Companion Relationship Specialty Start Date End Date Kylah Crum MBBS [address] [place] [phone] PCP - General Family Practice 10/03/23
--- OUTSIDE RECORDS SUMMARY | 2024-05-08 11:20 | XMS_ITS | Encounter Summary ---
Author Organization [facility] Address [address] [place] [address] Care Team Providers Care Systems Mgr Name Role Phone Kylah Crum M.D. Primary Care Provider Encounter Details Date Type Department Care Team (Latest Contact Info) Description 01/15/2024 Clinical Communication Department of Cardiovascular Medicine in [place], [place] [address] [place] [address] Eneida Loya, RJarrettNJarrett [address] [place] [address] Social History Tobacco Use Types Packs/Day Years [...] your living situation today? I have a [facility] place to live 08/29/2023 Sex [...] as of this encounter Care Teams Systems Mgr Relationship Specialty Start Date End Date Kylah Crum M.D. [address] [place] [address] [place] [address] PCP - General Family Medicine 09/28/23 documented as of this encounter
--- OUTSIDE RECORDS SUMMARY | 2024-05-08 11:20 | XMS_ITS | Encounter Summary ---
Author Organization [facility] Address [address] [place] [address] Care Team Providers Care Nursing Associate Name Role Phone Kylah Crum M.D. Primary Care Provider [phone] Encounter Details Date Type Department Care Team (Late st Contact Info) Description 02/01/2024 Orders Only Division of Nephrology and Hypertension in [place], [place] [address] [place] [address] Mare Arauz M.D., Ph.D. [address] [place] [address] Chronic Kidney Disease (CKD), Stage 3b Glomerular [...] Seymour M.D., Ph.D. LAB BL OOD ADD-ON [facility] [address], [place] [address], [facility] in [place] [address] [place] [address] documented in this encounter Visit Diagnoses Diagnosis Chronic Kidney Disease (CKD), Stage 3b Glomerular Filtration Rate (GFR) 30 To 44 (HCC)- Primary documented in this encounter Additional Health Concerns Assessment Noted Time PHQ-9 Depression Total Score: 1 09/10/20 23 2:06 PM CDT documented as of this encounter Care Teams Nursing Associate Relationship Specialty Start Date End Date Kylah Crum M.D. [address] [place] [phone] PCP - General Family Medicine 09/28/23 documented as of this encounter
--- OUTSIDE RECORDS SUMMARY | 2024-05-08 11:20 | XMS_ITS | Encounter Summary ---
Author Organization [facility] Address [address] [place] [address] Care Team Providers Care Lightning Rod Installer Name Role Phone Kylah Crum M.D. Primary Care Provider Encounter Details Date Type Department Care Team (Latest Contact Info) Description 02/04/2024 10:49 AM CDT - 02/04/2024 11:59 PM CDT Hospital Encounter Department of Laboratory Medicine in [address] [phone] Mare Arauz M.D., Ph.D. [address] [place] [phone] Chronic Kidney Disease (CKD), Stage 3b Glomerular [...] your living situation today? I have a [facility] place to live 08/29/2023 Sex [...] taken in conjunction with 5mg tablets. Take 9wlb11pwjn,0yxl82jcly,7 dbp67isuq,9pyg91jsut,5m ek64jibs,9wnw26txzs,3mg b52unpg,3isc05vmwq,1mgx 14days.. 280 tablet 01/15/2024 03/18/2024 predniSONE (DELTASONE) [...] in conjunction with 1 mg tablets. Take 9blu99rxaf,1gsi70sqrk,7 zwx37slmm,3qgw96euxt,5m at33sgsn,3puh49qzgv,3mg q28vzqw,1wir74robu,1mgx 14days. 70 tablet 01/15/2024 03/18/2024 documented as [...] Seymour M.D., Ph.D. LAB BL OOD ADD-ON [facility] [address], [place] [address], [facility] [place] [address] [place] [address] documented in this encounter Visit Diagnoses Diagnosis Chronic Kidney Disease (CKD), Stage 3b Glomerular Filtration Rate (GFR) 30 To 44 (HCC) documented in this encounter Additional Health Concerns Assessment Noted Time PHQ-9 Depression Total Score: 1 09/10/20 23 2:06 PM CDT documented as of this encounter Care Teams Lightning Rod Installer Relationship Specialty Start Date End Date Kylah Crum M.D. [address] [place] [phone] PCP - General Family Medicine 09/28/23 documented as of this encounter
== END 2024-05-08 11:15 | disposition home or self-care (01) ==
LOC: NFLDREF 11:16
PROVIDERS: PCP Internal Medicine; Visit Provider Internal Medicine
DX: I31.9 Disease of pericardium, unspecified (principal)
CPT/HCPCS: 80048

== ENCOUNTER 2024-05-16 14:14 | Outpatient (REF) | payer MEDICARE, SELFPAY ==
--- OUTSIDE RECORDS SUMMARY | 2024-05-16 14:17 | XMS_ITS | Encounter Summary ---
Author Organization [facility] Address [address] [place] [address] Care Team Providers Care Patcher Bowling Ball Name Role Phone Kylah Crum M.D. Primary Care Provider [phone] Reason for Visit * Reason Onset Date Comments bilateral leg swelling 04/17/2024 Encounter Details Date Type Department Care Team (Latest Contact Info) Description 04/17/2024 Clinical Communication Department of Cardiovascular Medicine in [place], [place] [address] [place] [address] Gudelia Soto M.D. [address] [place] [address] bilateral leg swelling Social History Tobacco Use [...] Phone call returned to ANGIE Henriquez at [facility]. She had left for the day so the racing secretary and handicapper left a message with our phone number. * Telephone Encounter - Lester Phelps, R.N. - 04/17/2024 3:02 PM CDT Phone call returned to ANGIE Henriquez at the [facility]. Mr. Harris was in clinic for [...] Harris to see another provider at the [facility] to be assessed. Addendum: Phone call [...] documented as of this encounter Care Teams Patcher Bowling Ball Relationship Specialty Start Date End Date Kylah Crum M.D. [address] [place] [phone] PCP - General Family Medicine 09/28/23 documented as of this encounter
--- OUTSIDE RECORDS SUMMARY | 2024-05-16 14:17 | XMS_ITS ---
Author Organization [facility] Address [address] [place] [address] Care Team Providers Care Housing Director Name Role Phone Unavailable Unavailable Unavailable Surgery Details Not on file Complications Check Surgery Details section. Procedure Estimated Blood Loss Check Surgery Details section. Procedure Findings Check Surgery Details section. Procedure Specimens Taken Check Surgery Details section.
--- OUTSIDE RECORDS SUMMARY | 2024-05-16 14:17 | XMS_ITS | Referral Summary ---
Author Organization [facility] Address [address] [place] [address] Care Team Providers Care Edi Programmer Analyst Name Role Phone Kylah Crum M.D. Primary Care Provider [phone] Source Comments Patient records contain information from all sites at [facility]. For routine questions regarding patient records, call [phone] during business hours, M-F 8:00 AM - 5:00 PM Central Time. Record requests for emergency care only can be directed to [phone] at any time.[facility] Encounters Date Type Department Care Team Description 04/17/2024 Clinical Communication Division of Nephrology and Hypertension in [place], [place] [address] [place] [address] Mare Arauz M.D., Ph.D. Appt Request 04/17/2024 Clinical Communication Department of Cardiovascular Medicine in [place], [place] [address] [place] [address] Gudelia Soto M.D. bilateral leg swelling 04/15/2024 Orders Only [facility] Kyl[facility] Crum M.D. Screening Abdominal Aortic Aneurysm; Diabetes Mellitus Type 2 (HCC) 03/18/2024 Refill Department of Cardiovascular Medicine in [place], [place] [address] [place] [address] Obinna Desai, P.A.-C. Med Refill from Last 3 Months Allergies [...] 45 tablet 3 02/19/2024 Active predniSONE (DELTASONE) 5 mg tablet Take 1 tablet (5 mg total) by mouth daily. 14 tablet 03/18/2024 Active predniSONE (DELTASONE) 1 mg tablet Take 4 tablets (4 mg total) by mouth daily for 14 days, THEN 3 tablets (3 mg total) daily for 14 days, THEN 2 tablets (2 mg total) daily for 14 days, THEN 1 tablet (1 mg total) daily for 14 days. 140 tablet 03/18/2024 Active Problems Problem Noted Date Diagnosed Date C D Stripper (Current) Anticoagulant Treatment 09/13 Bypass Coronary Artery Graft Status Post 023 Cardiac Surgery Status Post 09/24/2023 Effusion Pleural 09/24/2023 Device Cardiac Status Post 09/23/2023 Overview: Previously placed loop recorder Therapy C D Stripper Antiplatelet 09/22/2023 Coronary Arterial Bypass Graft Status [...] living situation today? I have a [facility] place to live 08/29/2023 Sex and Gender Information Value Date Recorded Sex Assigned at Male 08/29/2023 11:06 AM CDT Gender Identity Male 08/29/2023 11:06 AM CDT Sexual Orientation Straight 08/29/2023 11 :06 AM CDT Last Filed Vital Signs Vital Sign Reading Time Taken Comments Blood Pressure 111/68 12/24/2023 1:40 PM SALES ASSOCIATE CASHIER Pulse 86 12/24/2023 1:40 PM SALES ASSOCIATE CASHIER Temperature 36.1 ??C (96.9 ??F) 10/01/2023 1 1:08 AM SALES ASSOCIATE CASHIER Respiratory Rate 20 10/01/2023 11:0 8 AM SALES ASSOCIATE CASHIER Oxygen Saturation 98% 10/01/2023 11: 08 AM SALES ASSOCIATE CASHIER Inhaled Oxygen Concentration - - Weight 85.2 kg (187 lb 13.3 oz) 12/25/2023 2:40 PM SALES ASSOCIATE CASHIER Height 169.5 cm (5' 6.73) 12/25/2023 2:40 PM CS T Body Mass Index 29.66 12/25/2023 2:40 PM SALES ASSOCIATE CASHIER Plan of Treatment Not on file Medical Devices Implanted Type Area Belt Loop Cutter Device Identifier Shelf Expiration Date Model / Serial / Lot Vlv Aort Cnf [facility] 23 - [id number] - [id number] Implanted:Qty: 1 on 09/19/2023 by Sarah Miller M.D., M.P.H. at [facility] Cardiac Valve Prosthesis N/A: Aortic Valve Artivion (Prev. [employer]oLife) 2028 ONXACE-2 / [id number] / Description:MRI conditional up to 3T, normal mode, per go go dancer. [email or web address] [email or web address] AFK Clp Hrzn Ti 24 Clp Akhil - [id number] Implanted:Qty: 1 on 09/19/2023 by Sarah Miller M.D., M.P.H. at [facility] Hardware e.g. pins/screws/r ods N/A: Chest [employer] [id number] 04/29/2028 [id number] / / [id number] Clp Hrzn Ti 6 Clp Md Akhil - [id number] Implanted:Qty: 1 on 09/19/2023 by Sarah Miller M.D., M.P.H. at [facility] Hardware e.g. pins/screws/r ods N/A: Chest [employer] [id number] / / Clp Hrzn Ti 24 Clp Sm Red - [id number] Implanted:Qty: 1 on 09/19/2023 by Sarah Miller M.D., M.P.H. at [facility] Hardware e.g. pins/screws/r ods N/A: Chest [employer] [id number] / / Clp Hrzn Ti 24 Clp Sm Red - [id number] Implanted:Qty: 1 on 09/19/2023 by Sarah Miller M.D., M.P.H. at [facility] Hardware e.g. pins/screws/r ods N/A: Chest [employer] [id number] / / [place] S[facility] Tfln 1x6 - [id number] Implanted:Qty: 1 on 09/19/2023 by Sarah Miller M.D., M.P.H. at [facility] Hardware e.g. pins/screws/r ods N/A: [employer] [id number] / / Medtronic Linq-05/05/2019 Implanted:04/13 by Chet Badillo M.D., Ph.D. (Quantity not on file) Implantable Loop Recorder Chest Medtronic [id number] / [id number] / Description:MR Conditional 1 .5T and 3T - First level operating mode. - Jayro Abernathy 12/25/2023 Procedures Procedure Name Priority Date/Time Associated Diagnosis Comments BASIC METABOLIC PANEL, S/P Routine 02/04/2024 10:56 AM CDT Chronic Kidney Disease (CKD), Stage 3b Glomerular Filtration Rate (GFR) 30 To 44 (HCC) LIPID PANEL, S Routine 12/24/2023 9:44 AM SALES ASSOCIATE CASHIER Stenosis Aortic Valve Acquired HEMOGLOBIN A1C, B [...] Seymour M.D., Ph.D. LAB BL OOD ADD-ON [facility] [address] [place] [address], [place] OW[facility] in [place] [address] [place] [address] * Lipid Panel (12/24/2023 9:44 AM SALES ASSOCIATE CASHIER) Triglycerides 68 mg/dL 12/24/2023 1:00 PM SALES ASSOCIATE CASHIER DTL Comment: ----REFERENCE VALUE---- Normal: <150 mg/dL Borderline High: 150-199 mg/dL High: 200-499 mg/dL Very High: > or =500 mg/dL Cholesterol, Total 107 mg/dL 2023 1:00 PM SALES ASSOCIATE CASHIER DTL Comment: ----REFERENCE VALUE---- Desirable: < 200 mg/dL Borderline High: 200 - 239 mg/dL High: > or = 240 mg/dL Cholesterol, LDL, Calculated 50 mg/dL 12/24/2023 1:00 PM SALES ASSOCIATE CASHIER DTL Comment: ----REFERENCE VALUE---- Desirable: <100 mg/dL Above Desirable: 100-129 mg/dL Borderline High: 130-159 mg/dL High: 160-189 mg/dL Very High: >=190 mg/dL ----ADDITIONAL INFORMATION---- LDL cholesterol calculated using the Iglesias/NIH equation. Cholesterol, HDL, S 42 >=40 mg/dL 12/24/2023 1:00 PM SALES ASSOCIATE CASHIER DTL Cholesterol, Non-HDL, Calculated 65 mg/dL 12/24/2023 1:00 PM SALES ASSOCIATE CASHIER DTL Comment: ----REFERENCE VALUE---- Desirable: <130 mg/dL Above Desirable: 130-159 mg/dL Borderline High: 160-189 mg/dL High: 190-219 mg/dL Very High: > or =220 mg/dL Fasting (8 HR or more) yes 12/24/2023 10:18 AM SALES ASSOCIATE CASHIER DTL Blood (Blood, Venous) 12/24/2023 9:44 AM SALES ASSOCIATE CASHIER 12/24/2023 10:18 AM SALES ASSOCIATE CASHIER Gudelia Soto M.D. LAB BLOOD ADD-ON Performing Organization Address [facility] Co de Phone Number [facility] [address] [address] * (ABNORMAL) Hemoglobin A1c (08/22/2023 5:14 AM CDT) Pathologist [facility] Hemoglobin A1c, B 6.2(H) 4.0 - 5.6 % 08/22/2023 7:37 AM CDT DT Comment: Hemoglobin A1c values of 5.7-6.4 percent indicate an increased risk for developing diabetes mellitus. In diabetic patients, HbA1c goals should be discussed with healthcare provider. Blood (Blood, Venous) 08/22/2023 5:14 AM CDT 08/22/2023 5:49 AM CDT Radha Richards APRNN.P., D.N.P. LAB BLOOD ADD-ON Performing Organization Address [facility] Co de Phone Number [facility] [address] [place], [place] [phone] [place] [address] 200 [place] [address] * Colonoscopy (11/21/2022) [facility] EXT Colonoscopy Normal - See Scanned Report for Details Normal - See Scanned Report for Details, HIMS - Report Received and Scanned Historical Provider GI PROCEDURE ORDERAB LES from Last 3 Months or Most Recently Relevant to Health Maintenance Advance Directives For more information, please contact: [phone] * Full Code (Latest Code Status on [...] Answer Comments Full Code: Discussed Care Teams Edi Programmer Analyst Relationship Specialty Start Date End Date Kylah Crum M.D. [address] [place] [address] [place] [phone] PCP - General Family Medicine 09/28/23
--- OUTSIDE RECORDS SUMMARY | 2024-05-16 14:17 | XMS_ITS | Clinical Summary ---
Author Organization [facility] Address [address] [place] [address] Care Team Providers Care Solar Pv Installer Name Role Phone Kylah Crum M.D. Primary Care Provider Source Comments Patient records contain information from all sites at [facility]. For routine questions regarding patient records, call [phone] during business hours, M-F 8:00 AM - 5:00 PM Central Time. Record requests for emergency care only can be directed to [phone] at any time.[facility] Allergies No known active allergies Medications Medication [...] 14 days. 140 tablet 03/18/2024 4 Active Problems Problem Noted Date Diagnosed Date Senior Care (Current) Anticoagulant Treatment 09/13 Bypass Coronary Artery Graft Status Post 023 Cardiac Surgery Status Post 09/24/2023 Effusion Pleural 09/24/2023 Device Cardiac Status Post 09/23/2023 Overview: Previously placed loop recorder Therapy Senior Care Antiplatelet 09/22/2023 Coronary Arterial Bypass Graft Status [...] Communication Division of Nephrology and Hypertension in [place], [place] [address] [place] [address] Mare Arauz M.D., Ph.D. Appt Request 04/17/2024 Clinical Communication Department of Cardiovascular Medicine in [place], [place] [address] [place] [address] Mankad, Gudelia, M.D. bilateral leg swelling 04/15/2024 Orders Only [facility] PCP TH Kylah Coronel M.D. Screening Abdominal Aortic Aneurysm; Diabetes Mellitus Type 2 (HCC) 03/18/2024 Refill Department of Cardiovascular Medicine in [place], [place] [address] [place] [address] Obinna Desai, P.A.-C. Med Refill from Last 3 Months Family [...] Comments Blood Pressure 111/68 12/24/2023 1:40 PM PRIMER AND POWDER CANNING LEADER Pulse 86 12/24/2023 1:40 PM PRIMER AND POWDER CANNING LEADER Temperature 36.1 ??C (96.9 ??F) 10/01/2023 1 1:08 AM PRIMER AND POWDER CANNING LEADER Respiratory Rate 20 10/01/2023 11:0 8 AM PRIMER AND POWDER CANNING LEADER Oxygen Saturation 98% 10/01/2023 11: 08 AM PRIMER AND POWDER CANNING LEADER Inhaled Oxygen Concentration - - Weight 85.2 kg (187 lb 13.3 oz) 12/25/2023 2:40 PM PRIMER AND POWDER CANNING LEADER Height 169.5 cm (5' 6.73) 12/25/2023 2:40 PM CS T Body Mass Index 29.66 12/25/2023 2:40 PM PRIMER AND POWDER CANNING LEADER Plan of Treatment Health Maintenance Due Date [...] Vaccine (1 - 2022-2 4 season) 2023 Depression Screening (Annual PHQ-2) 11/12/2023 Hemoglobin A1C 02/21/2024 08/22/2023 Influenza Vaccine (#1) 2024 Visit: Chronic Disease, age 18+ 10/01/2024 , [...] Completed 12/24/2023 Medical Devices Implanted Type Area Superintendent Device Identifier Shelf Expiration Date Model / Serial / Lot Vlv Aort Cnf [facility] 23 - [id number] - [id number] Implanted:Qty: 1 on 09/19/2023 by Sarah Miller M.D., M.P.H. at [facility] Cardiac Valve Prosthesis N/A: Aortic Valve Artivion (Prev. CryoLife) 2028 ONXACE-2 3 / [id number] / Description:MRI conditional up to 3T, normal mode, per salary and wage administrator. [email or web address] _[email or web address] AFK Clp Hrzn Ti 24 Clp Akhil - [id number] Implanted:Qty: 1 on 09/19/2023 by Sarah Miller M.D., M.P.H. at [facility] Hardware e.g. pins/screws/r ods N/A: Chest [employer] [id number] 04/29/2028 [id number] / / [id number] Clp Hrzn Ti 6 Clp Akhil - [id number] Implanted:Qty: 1 on 09/19/2023 by Sarah Miller M.D., M.P.H. at [facility] Hardware e.g. pins/screws/r ods N/A: Chest [employer] [id number] / / Clp Hrzn Ti 24 Clp Sm Red - [id number] Implanted:Qty: 1 on 09/19/2023 by Sarah Miller M.D., M.P.H. at [facility] Hardware e.g. pins/screws/r ods N/A: Chest [employer] [id number] / / Clp Hrzn Ti 24 Clp Sm Red - [id number] Implanted:Qty: 1 on 09/19/2023 by Sarah Miller M.D., M.P.H. at [facility] Hardware e.g. pins/screws/r ods N/A: Chest [employer] [id number] / / [place] Surg Tfln 1x6 - [id number] Implanted:Qty: 1 on 09/19/2023 by Sarah Miller M.D., M.P.H. at [facility] Hardware e.g. pins/screws/r ods N/A: Chest [employer] [id number] / / Medtronic Linq-05/05/2019 Implanted:04/13 by Chet Badillo M.D., Ph.D. (Quantity not on file) Implantable Loop Recorder Chest Medtronic [id number] / [id number] / Description:MR Conditional 1 .5T and 3T - First level operating mode. - Jayro Abernathy 12/25/2023 Procedures Procedure Name Priority Date/Time Associated Diagnosis Comments BASIC METABOLIC PANEL, S/P Routine 02/04/2024 10:56 AM CDT Chronic Kidney Disease (CKD), Stage 3b Glomerular Filtration Rate (GFR) 30 To 44 (HCC) LIPID PANEL, S Routine 12/24/2023 9:44 AM PRIMER AND POWDER CANNING LEADER Stenosis Aortic Valve Acquired HEMOGLOBIN A1C, B [...] M.D., Ph.D. LAB BL OOD ADD-ON [facility] [address] [place] [address], [place] OW[facility] [place] [address] [place] [address] * Lipid Panel (12/24/2023 9:44 AM PRIMER AND POWDER CANNING LEADER) Triglycerides 68 mg/dL 12/24/2023 1:00 PM PRIMER AND POWDER CANNING LEADER DTL Comment: ----REFERENCE VALUE---- Normal: <150 mg/dL Borderline High: 150-199 mg/dL High: 200-499 mg/dL Very High: > or =500 mg/dL Cholesterol, Total 107 mg/dL 2023 1:00 PM PRIMER AND POWDER CANNING LEADER DTL Comment: ----REFERENCE VALUE---- Desirable: < 200 mg/dL Borderline High: 200 - 239 mg/dL High: > or = 240 mg/dL Cholesterol, LDL, Calculated 50 mg/dL 12/24/2023 1:00 PM PRIMER AND POWDER CANNING LEADER DTL Comment: ----REFERENCE VALUE---- Desirable: <100 mg/dL Above Desirable: 100-129 mg/dL Borderline High: 130-159 mg/dL High: 160-189 mg/dL Very High: >=190 mg/dL ----ADDITIONAL INFORMATION---- LDL cholesterol calculated using the Iglesias/NIH equation. Cholesterol, HDL, S 42 >=40 mg/dL 12/24/2023 1:00 PM PRIMER AND POWDER CANNING LEADER DTL Cholesterol, Non-HDL, Calculated 65 mg/dL 12/24/2023 1:00 PM PRIMER AND POWDER CANNING LEADER DTL Comment: ----REFERENCE VALUE---- Desirable: <130 mg/dL Above Desirable: 130-159 mg/dL Borderline High: 160-189 mg/dL High: 190-219 mg/dL Very High: > or =220 mg/dL Fasting (8 HR or more) yes 12/24/2023 10:18 AM PRIMER AND POWDER CANNING LEADER DTL Blood (Blood, Venous) 12/24/2023 9:44 AM PRIMER AND POWDER CANNING LEADER 12/24/2023 10:18 AM PRIMER AND POWDER CANNING LEADER Gudelia Soto M.D. LAB BLOOD ADD-ON Performing Organization Address [facility] Co de Phone Number [facility] [address] [place], [place] [phone] [place] [address] [address] [place] [address] * (ABNORMAL) Hemoglobin A1c (08/22/2023 5:14 AM [...] D.N.P. LAB BLOOD ADD-ON Performing Organization Address [facility] Co de Phone Number [facility] [address] [place], [place] [address] [address] [place] [address] * Colonoscopy (11/21/2022) EXT Colonoscopy Normal - See Scanned Report for Details Normal - See Scanned Report for Details, HIMS - Report Received and Scanned Historical Provider GI PROCEDURE ORDERAB LES from Last 3 Months or Most Recently Relevant to Health Maintenance Advance Directives For more information, please contact: [phone] * Full Code (Latest Code Status on [...] Answer Comments Full Code: Discussed Care Teams Solar Pv Installer Relationship Specialty Start Date End Date Kylah Crum M.D. [address] [place] [phone] PCP - General Family Medicine 09/28/23
--- OUTSIDE RECORDS SUMMARY | 2024-05-16 14:17 | XMS_ITS | Encounter Summary ---
Author Organization [facility] Address [address] [place] [address] Care Team Providers Care Refrigeration Specialist Name Role Phone Kylah Crum M.D. Primary Care Provider Reason for Visit * Reason Onset Date Comments Appt Request 04/17/2024 Encounter Details Date Type Department Care Team (Latest Contact Info) Description 04/17/2024 Clinical Communication Division of Nephrology and Hypertension in [place], [place] [address] [place] [address] Mare Arauz M.D., Ph.D. [address] [place] [address] Appt Request Social History Tobacco Use Types [...] as of this encounter Care Teams Refrigeration Specialist Relationship Specialty Start Date End Date Kylah Crum M.D. [address] [place] [phone] PCP - General Family Medicine 09/28/23 documented as of this encounter
--- OUTSIDE RECORDS SUMMARY | 2024-05-16 14:18 | XMS_ITS | Encounter Summary ---
Author Organization [facility] Address [address] [place] [address] Care Team Providers Care Lap Winding Machine Operator Name Role Phone Kylah Crum M.D. Primary Care Provider Reason for Visit * Reason Comments Med Refill Encounter Details Date Type Department Care Team (Late st Contact Info) Description 02/11/2024 Refill Department of Cardiovascular Medicine in [place], [place] [address] [place] [address] Gudelia Soto M.D. [address] [place] [address] Med Refill Social History Tobacco Use Types [...] documented as of this encounter Care Teams Lap Winding Machine Operator Relationship Specialty Start Date End Date Kylah Crum M.D. [address] [place] [address] [place] [phone] PCP - General Family Medicine 09/28/23 documented as of this encounter
--- OUTSIDE RECORDS SUMMARY | 2024-05-16 14:18 | XMS_ITS | Encounter Summary ---
Author Organization [facility] Address [address] [place] [address] Care Team Providers Care Azure Developer Name Role Phone Kylah Crum M.D. Primary Care Provider [phone] Reason for Referral * Outpatient (Routine) - Authorized Specialty Diagnoses / Procedures Referred By Sebas gimenez Referred To Contact Kylah Crum M.D. [address] [place] [address] [facility] Region Referral ID Status Reason Start Date Expiration Date V isits Requested Visits Authorized [id number] Authorized 04/15/2024 10/15/2025 1 1 Scheduling Instructions Nurse AWV Do not schedule prior to due date to ensure insurance coverage Visit: Medicare Annual Wellness Never done. * Outpatient (Routine) - Authorized Specialty Diagnoses / Procedures Referred By Sebas gimenez Referred To Contact Diagnoses Screening Abdominal Aortic Aneurysm Procedures US Aorta AAA Screening Kylah Crum M.D. [address] [place] [address] [facility] Region Referral ID Status Reason Start Date Expiration Date V isits Requested Visits Authorized [id number] Authorized 04/15/2024 04/15/2025 1 1 Encounter Details Date Type Department Care Team (Late st Contact Info) Description 04/15/2024 Orders Only [facility] PCP [facility] Ayuob, Mysoon M, M.D. [address] [place] [address] [place] [phone] Screening Abdominal Aortic Aneurysm; Diabetes Mellitus [...] situation today? [facility] 08/29/2023 Sex and [...] Schedule Primary Care nurse visit (clinic) - [facility]; Medicare Annual Wellness Outpatient Referral Routine Expected: 05/13/2024, Expires: 10/12/2024 documented as of this encounter Visit Diagnoses Diagnosis Screening Abdominal Aortic Aneurysm Diabetes Mellitus Type 2 (HCC) documented in this encounter Additional Health Concerns Assessment Noted Time PHQ-9 Depression Total Score: 1 09/10/20 2:06 PM CDT documented as of this encounter Care Teams Azure Developer Relationship Specialty Start Date End Date Kylah Crum M.D. [address] [place] [phone] PCP - General Family Medicine 09/28/23 documented as of this encounter
--- OUTSIDE RECORDS SUMMARY | 2024-05-16 14:18 | XMS_ITS | Clinical Summary ---
Author Organization [facility] Address [place], [place] [address] Care Team Providers Care Tool Maker Name Role Phone Kylah Crum Stace[place]esta [facility] Primary Care Provider Medications No known medications Encounters Date Type Department Care Team Description 02/20/2024 11:08 AM CDT - 02/20/2024 11:59 PM CDT Hospital Encounter [address] [id number] 02/20/2024 Travel 02/18/2024 11:14 AM CDT - 02/18/2024 11:59 PM CDT Hospital Encounter [address] [id number] 02/18/2024 Travel 02/15/2024 11:16 AM CDT - 02/15/2024 11:59 PM CDT Hospital Encounter [address] [id number] 02/15/2024 Travel from Last 3 Months Social History Tobacco Use Types Packs/Day Years Used Date Smoking Tobacco: Never Assessed Sex and Gender Information Value Date Recorded Sex Assigned at Not on file Gender Identity Not on file Sexual Orientation Not on file Obstetrics History Last Filed Vital Signs Vital Sign Reading Time Taken Comments Blood Pressure 107/69 10/03/2023 4:23 PM PSYCHIATRIC SPECIALIST Pulse 84 10/03/2023 4:23 PM PSYCHIATRIC SPECIALIST Temperature 36.8 ??C (98.2 ??F) 10/03/2023 3:16 PM CS T Respiratory Rate 20 10/03/2023 3:16 PM PSYCHIATRIC SPECIALIST Oxygen Saturation 98% 10/03/2023 4:23 PM PSYCHIATRIC SPECIALIST Inhaled Oxygen Concentration - - Weight 90.7 kg (200 lb) 10/03/2023 3:08 PM PSYCHIATRIC SPECIALIST Height 172.7 cm (5' 8) 10/03/2023 3:08 PM PSYCHIATRIC SPECIALIST Body Mass Index 30.41 10/03/2023 3:08 PM PSYCHIATRIC SPECIALIST Plan of Treatment Health Maintenance Due [...] CDT SCAN-CARDIAC REHABILITATION 02/15/2024 11:23 AM CDT from Last 3 Months Results * SCAN-CARDIAC REHABILITATION (02/20/2024 11:13 AM CDT) Only the most recent of3 resultswithin the time period is included. Scanner OTHER from Last 3 Months Care Teams Tool Maker Relationship Specialty Start Date End Date Kylah Crum MBBS [address] [place] [address] [place] [address] PCP - General Family Practice 10/03/23
--- OUTSIDE RECORDS SUMMARY | 2024-05-16 14:18 | XMS_ITS | Encounter Summary ---
Author Organization [facility] Address [address] [place] [address] Care Team Providers Care Lumber Stacker Name Role Phone Kylah Crum M.D. Primary Care Provider [phone] Reason for Visit * Reason Comments Med Refill Encounter Details Date Type Department Care Team ([facility] st Contact Info) Description 03/18/2024 Refill Department of Cardiovascular Medicine in [place], [place] [address] [place] [address] Obinna Desai, P.A.-C. [address] [place] [address] Med Refill Social History Tobacco Use Types [...] documented as of this encounter Care Teams Lumber Stacker Relationship Specialty Start Date End Date Kylah Crum M.D. [address] [place] [phone] PCP - General Family Medicine 09/28/23 documented as of this encounter
--- OUTSIDE RECORDS SUMMARY | 2024-05-16 14:18 | XMS_ITS | Encounter Summary ---
Author Organization [facility] Address [address] [place] [address] Care Team Providers Care Power System Engineer Name Role Phone Kylah Crum M.D. Primary Care Provider Encounter Details Date Type Department Care Team (Latest Contact Info) Description 01/15/2024 Clinical Communication Department of Cardiovascular Medicine in [place], [place] [address] [place] [address] Eneida Loya, RJarrettNJarrett [address] [place] [address] Social History Tobacco Use Types Packs/Day Years [...] of this encounter Care Teams Power System Engineer Relationship Specialty Start Date End Date Kylah Crum M.D. [address] [place] [address] [place] [address] PCP - General Family Medicine 09/28/23 documented as of this encounter
[2024-05-16 16:22] LABS: Creatinine* 2.2 mg/dL (0.5-1.5); Estimated Glomerular Filt Rate 31 ml/min
[2024-05-16 16:23] LABS: Blood Urea Nitrogen* 45 mg/dL (7-30)
[2024-05-16 16:26] LABS: C Reactive Protein* 0.7 mg/dL (0.5-1.0)
== END 2024-05-16 14:15 | disposition home or self-care (01) ==
LOC: NPINS 14:14
PROVIDERS: PCP Internal Medicine; Visit Provider Internal Medicine Cardiovascular Disease
DX: I31.9 Disease of pericardium, unspecified (principal)
CPT/HCPCS: 82565; 84520; 86140

== ENCOUNTER 2024-05-29 14:22 | Outpatient (REF) | payer MEDICARE, SELFPAY ==
--- OUTSIDE RECORDS SUMMARY | 2024-05-29 14:26 | XMS_ITS | Encounter Summary ---
Author Organization [facility] Address [address] [place] [address] Care Team Providers Care Division Supervisor Name Role Phone Kylah Crum M.D. Primary Care Provider [phone] Reason for Visit * Reason Onset Date Comments bilateral leg swelling 04/17/2024 Encounter Details Date Type Department Care Team (Latest Contact Info) Description 04/17/2024 Clinical Communication Department of Cardiovascular Medicine in [place], [place] [address] [place] [address] Gudelia Soto M.D. [address] [place] [address] bilateral leg swelling Social History Tobacco Use [...] Phone call returned to ANGIE Henriquez at [facility]. She had left for the day so the nursing secretary left a message with our phone number. * Telephone Encounter - Lester Phelps, R.N. - 04/17/2024 3:02 PM CDT Phone call returned to ANGIE Henriquez at the [facility]. Mr. Harris was in clinic for [...] Harris to see another provider at the [facility] to be assessed. Addendum: Phone call [...] documented as of this encounter Care Teams Division Supervisor Relationship Specialty Start Date End Date Kylah Crum M.D. [address] [place] [phone] PCP - General Family Medicine 09/28/23 documented as of this encounter
--- OUTSIDE RECORDS SUMMARY | 2024-05-29 14:26 | XMS_ITS | Referral Summary ---
Author Organization [facility] Address [address] [place] [address] Care Team Providers Care Pbx Wire Chief Name Role Phone Kylah Crum M.D. Primary Care Provider [phone] Source Comments Patient records contain information from all sites at [facility]. For routine questions regarding patient records, call [phone] during business hours, M-F 8:00 AM - 5:00 PM Central Time. Record requests for emergency care only can be directed to [phone] at any time.[facility] Encounters Date Type Department Care Team Description 04/17/2024 Clinical Communication Division of Nephrology and Hypertension in [place], [place] [address] [place] [address] Mare Arauz M.D., Ph.D. Appt Request 04/17/2024 Clinical Communication Department of Cardiovascular Medicine in [place], [place] [address] [place] [address] Gudelia Stoo M.D. bilateral leg swelling 04/15/2024 [facility] Kyl[facility] Crum M.D. Screening Abdominal Aortic Aneurysm; Diabetes Mellitus Type 2 (HCC) 03/18/2024 Refill Department of Cardiovascular Medicine in [place], [place] [address] [place] [address] Obinna Desai, P.A.-C. Med Refill from Last [...] Active Problems Problem Noted Date Diagnosed Date Wearing Apparel Shaker (Current) Anticoagulant Treatment 09/13 Bypass Coronary Artery Graft Status Post 023 Cardiac Surgery Status Post 09/24/2023 Effusion Pleural 09/24/2023 Device Cardiac Status Post 09/23/2023 Overview: Previously placed loop recorder Therapy Halfway Antiplatelet 09/22/2023 Coronary Arterial Bypass Graft Status [...] living situation today? I have a [facility] place to live 08/29/2023 Sex and Gender Information Value Date Recorded Sex Assigned at Male 08/29/2023 11:06 AM CDT Gender Identity Male 08/29/2023 11:06 AM CDT Sexual Orientation Straight 08/29/2023 11 :06 AM CDT Last Filed Vital Signs Vital Sign Reading Time Taken Comments Blood Pressure 111/68 12/24/2023 1:40 PM DATA CENTER CONSULTANT Pulse 86 12/24/2023 1:40 PM DATA CENTER CONSULTANT Temperature 36.1 ??C (96.9 ??F) 10/01/2023 1 1:08 AM DATA CENTER CONSULTANT Respiratory Rate 20 10/01/2023 11:0 8 AM DATA CENTER CONSULTANT Oxygen Saturation 98% 10/01/2023 11: 08 AM DATA CENTER CONSULTANT Inhaled Oxygen Concentration - - Weight 85.2 kg (187 lb 13.3 oz) 12/25/2023 2:40 PM DATA CENTER CONSULTANT Height 169.5 cm (5' 6.73) 12/25/2023 2:40 PM CS T Body Mass Index 29.66 12/25/2023 2:40 PM DATA CENTER CONSULTANT Plan of Treatment Not on file Medical Devices Implanted Type Area Business Unit Controller Device Identifier Shelf Expiration Date Model / Serial / Lot Vlv Aort Cnf [facility] 23 - [id number] - [id number] Implanted:Qty: 1 on 09/19/2023 by Sarah Miller M.D., M.P.H. at [facility] Cardiac Valve Prosthesis N/A: Aortic Valve Artivion (Prev. CryoLife) 2028 ONXACE-2 / [id number] / Description:MRI conditional up to 3T, normal mode, per civil rights attorney. [email or web address]/[email or web address] ation _All.pdf AFK Clp Hrzn Ti 24 Clp Akhil - [id number] Implanted:Qty: 1 on 09/19/2023 by Sarah Miller M.D., M.P.H. at [facility] Hardware e.g. pins/screws/r ods N/A: Chest [employer] [id number] 04/29/2028 [id number] / / [id number] Clp Hrzn Ti 6 Clp Md Akhil - [id number] Implanted:Qty: 1 on 09/19/2023 by Sarah Miller M.D., M.P.H. at [facility] Hardware e.g. pins/screws/r ods N/A: Chest [employer] [id number] / / Clp Hrzn Ti 24 Clp Sm Red - [id number] Implanted:Qty: 1 on 09/19/2023 by Sarah Miller M.D., M.P.H. at [facility] Hardware e.g. pins/screws/r ods N/A: Chest [employer] [id number] / / Clp Hrzn Ti 24 Clp Sm Red - [id number] Implanted:Qty: 1 on 09/19/2023 by Sarah Miller M.D., M.P.H. at [facility] Hardware e.g. pins/screws/r ods N/A: Chest [employer] [id number] / / [place] Surg Tfln 1x6 - [id number] Implanted:Qty: 1 on 09/19/2023 by Sarah Miller M.D., M.P.H. at [facility] Hardware e.g. pins/screws/r ods N/A: Scutum [id number] / / Medtronic Linq-05/05/2019 Implanted:04/13 by Chet Badillo M.D., Ph.D. (Quantity not on file) Implantable Loop Recorder Chest Medtronic [id number] / [id number] / Description:MR Conditional 1 .5T and 3T - First level operating mode. - Jayro Abernathy 12/25/2023 Procedures Procedure Name Priority Date/Time Associated Diagnosis Comments BASIC METABOLIC PANEL, S/P Routine 02/04/2024 10:56 AM CDT Chronic Kidney Disease (CKD), Stage 3b Glomerular Filtration Rate (GFR) 30 To 44 (HCC) LIPID PANEL, S Routine 12/24/2023 9:44 AM DATA CENTER CONSULTANT Stenosis Aortic Valve Acquired HEMOGLOBIN A1C, [...] Seymour M.D., Ph.D. LAB BL OOD ADD-ON [facility] [address] [place] [address], [place] OW[place] [facility] [place] [address] [place] [address] * Lipid Panel (12/24/2023 9:44 AM DATA CENTER CONSULTANT) Triglycerides 68 mg/dL 12/24/2023 1:00 PM DATA CENTER CONSULTANT DTL Comment: ----REFERENCE VALUE---- Normal: <150 mg/dL Borderline High: 150-199 mg/dL High: 200-499 mg/dL Very High: > or =500 mg/dL Cholesterol, Total 107 mg/dL 2023 1:00 PM DATA CENTER CONSULTANT DTL Comment: ----REFERENCE VALUE---- Desirable: < 200 mg/dL Borderline High: 200 - 239 mg/dL High: > or = 240 mg/dL Cholesterol, LDL, Calculated 50 mg/dL 12/24/2023 1:00 PM DATA CENTER CONSULTANT DTL Comment: ----REFERENCE VALUE---- Desirable: <100 mg/dL Above Desirable: 100-129 mg/dL Borderline High: 130-159 mg/dL High: 160-189 mg/dL Very High: >=190 mg/dL ----ADDITIONAL INFORMATION---- LDL cholesterol calculated using the Iglesias/NIH equation. Cholesterol, HDL, S 42 >=40 mg/dL 12/24/2023 1:00 PM DATA CENTER CONSULTANT DTL Cholesterol, Non-HDL, Calculated 65 mg/dL 12/24/2023 1:00 PM DATA CENTER CONSULTANT DTL Comment: ----REFERENCE VALUE---- Desirable: <130 mg/dL Above Desirable: 130-159 mg/dL Borderline High: 160-189 mg/dL High: 190-219 mg/dL Very High: > or =220 mg/dL Fasting (8 HR or more) yes 12/24/2023 10:18 AM DATA CENTER CONSULTANT DTL Blood (Blood, Venous) 12/24/2023 9:44 AM DATA CENTER CONSULTANT 12/24/2023 10:18 AM DATA CENTER CONSULTANT Gudelia Soto M.D. LAB BLOOD ADD-ON Performing Organization Address City/[facility] Co de Phone Number [facility] [address] [address] * (ABNORMAL) Hemoglobin A1c (08/22/2023 5:14 AM CDT) Pathologist [facility] Hemoglobin A1c, B 6.2(H) 4.0 - 5.6 % 08/22/2023 7:37 AM CDT DT Comment: Hemoglobin A1c values of 5.7-6.4 percent indicate an increased risk for developing diabetes mellitus. In diabetic patients, HbA1c goals should be discussed with healthcare provider. Blood (Blood, Venous) 08/22/2023 5:14 AM CDT 08/22/2023 5:49 AM CDT Radha Richards APRNN.P., D.N.P. LAB BLOOD ADD-ON Performing Organization Address [facility] Co de Phone Number [facility] 200 [place], [place] [phone] [place] [address] [address] [place] [address] * Colonoscopy (11/21/2022) [facility] EXT Colonoscopy Normal - See Scanned Report for Details Normal - See Scanned Report for Details, HIMS - Report Received and Scanned Historical Provider GI PROCEDURE ORDERAB LES from Last 3 Months or Most Recently Relevant to Health Maintenance Advance Directives For more information, please contact: [phone] * Full Code (Latest Code Status on [...] Answer Comments Full Code: Discussed Care Teams Pbx Wire Chief Relationship Specialty Start Date End Date Kylah Crum M.D. [address] [place] [address] [place] [phone] PCP - General Family Medicine 09/28/23
--- OUTSIDE RECORDS SUMMARY | 2024-05-29 14:26 | XMS_ITS ---
Author Organization [facility] Address [address] [place] [address] Care Team Providers Care Physiotherapist'S Assistant Name Role Phone Unavailable Unavailable Unavailable Surgery Details Not on file Complications Check Surgery Details section. Procedure Estimated Blood Loss Check Surgery Details section. Procedure Findings Check Surgery Details section. Procedure Specimens Taken Check Surgery Details section.
--- OUTSIDE RECORDS SUMMARY | 2024-05-29 14:26 | XMS_ITS | Encounter Summary ---
Author Organization [facility] Address [address] [place] [address] Care Team Providers Care Science Intern Name Role Phone Kylah Crum M.D. Primary Care Provider Reason for Visit * Reason Onset Date Comments Appt Request 04/17/2024 Encounter Details Date Type Department Care Team (Latest Contact Info) Description 04/17/2024 Clinical Communication Division of Nephrology and Hypertension in [place], [place] [address] [place] [address] Mare Arauz M.D., Ph.D. [address] [place] [address] Appt Request Social History Tobacco Use Types [...] documented as of this encounter Care Teams Science Intern Relationship Specialty Start Date End Date Kylah Crum M.D. [address] [place] [phone] PCP - General Family Medicine 09/28/23 documented as of this encounter
--- OUTSIDE RECORDS SUMMARY | 2024-05-29 14:26 | XMS_ITS | Encounter Summary ---
Author Organization [facility] Address [address] [place] [address] Care Team Providers Care Customer Service Voice Name Role Phone Kylah Crum M.D. Primary Care Provider Reason for Referral * Outpatient (Routine) - Authorized Specialty Diagnoses / Procedures Referred By Sebas gimenez Referred To Contact Diagnoses Screening Abdominal Aortic Aneurysm Procedures US Aorta AAA Screening Kylah Crum M.D. [address] [place] [address] [facility] Referral ID Status Reason Start Date Expiration Date V isits Requested Visits Authorized [id number] Authorized 04/15/2024 04/15/2025 1 1 Encounter Details Date Type Department Care Team (Late st Contact Info) Description 04/15/2024 Orders Only [facility]CP [facility] Kylah Crum M.D. [address] [place] [address] Screening Abdominal Aortic Aneurysm; Diabetes [...] Type 2 (HCC) Expected: 04/29/2024, Expires: 10/12/2024 documented as of this encounter Visit Diagnoses Diagnosis Screening Abdominal Aortic Aneurysm Diabetes Mellitus Type 2 (HCC) documented in this encounter Additional Health Concerns Assessment Noted Time PHQ-9 Depression Total Score: 1 09/10/20 23 2:06 PM CDT documented as of this encounter Care Teams Customer Service Voice Relationship Specialty Start Date End Date Kylah Crum M.D. [address] [place] [phone] PCP - General Family Medicine 09/28/23 documented as of this encounter
--- OUTSIDE RECORDS SUMMARY | 2024-05-29 14:26 | XMS_ITS | Encounter Summary ---
Author Organization [facility] Address [address] [place] [address] Care Team Providers Care Patch Press Operator Name Role Phone Kylah Crum M.D. Primary Care Provider [phone] Reason for Visit * Reason Comments Med Refill Encounter Details Date Type Department Care Team ([facility] st Contact Info) Description 03/18/2024 Refill Department of Cardiovascular Medicine in [place], [place] [address] [place] [address] Obinna Desai, P.A.-C. [address] [place] [address] Med Refill Social History Tobacco Use Types [...] documented as of this encounter Care Teams Patch Press Operator Relationship Specialty Start Date End Date Kylah Crum M.D. [address] [place] [phone] PCP - General Family Medicine 09/28/23 documented as of this encounter
--- OUTSIDE RECORDS SUMMARY | 2024-05-29 14:26 | XMS_ITS | Encounter Summary ---
Author Organization [facility] Address [address] [place] [address] Care Team Providers Care Senior Physician Name Role Phone Kylah Crum M.D. Primary Care Provider Reason for Visit * Reason Comments Med Refill Encounter Details Date Type Department Care Team (Late st Contact Info) Description 02/11/2024 Refill Department of Cardiovascular Medicine in [place], [place] [address] [place] [address] Gudelia Soto M.D. [address] [place] [address] Med Refill Social History Tobacco Use Types [...] your living situation today? I have a [facility] place to live 08/29/2023 Sex [...] documented as of this encounter Care Teams Senior Physician Relationship Specialty Start Date End Date Kylah Crum M.D. [address] [place] [address] [place] [phone] PCP - General Family Medicine 09/28/23 documented as of this encounter
--- OUTSIDE RECORDS SUMMARY | 2024-05-29 14:26 | XMS_ITS | Clinical Summary ---
Author Organization [facility] Address [address] [place] [address] Care Team Providers Care Mergers And Acquisitions Manager Name Role Phone Kylah Crum M.D. Primary Care Provider Source Comments Patient records contain information from all sites at [facility]. For routine questions regarding patient records, call [phone] during business hours, M-F 8:00 AM - 5:00 PM Central Time. Record requests for emergency care only can be directed to [phone] at any time.[facility] Allergies No known active allergies Medications [...] Active Problems Problem Noted Date Diagnosed Date Oncology Physician Assistant (Current) Anticoagulant Treatment 09/13 Bypass Coronary Artery Graft Status Post 023 Cardiac Surgery Status Post 09/24/2023 Effusion Pleural 09/24/2023 Device Cardiac Status Post 09/23/2023 Overview: Previously placed loop recorder Therapy Fci Antiplatelet 09/22/2023 Coronary Arterial Bypass Graft Status [...] Communication Division of Nephrology and Hypertension in [place], [place] [address] [place] [address] Mare Arauz M.D., Ph.D. Appt Request 04/17/2024 Clinical Communication Department of Cardiovascular Medicine in [place], [place] [address] [place] [address] Mankad, Gudelia, M.D. bilateral leg swelling 04/15/2024 Orders Only [facility] PCP [facility] Kylah Coronel M.D. Screening Abdominal Aortic Aneurysm; Diabetes Mellitus Type 2 (HCC) 03/18/2024 Refill Department of Cardiovascular Medicine in [place], [place] [address] [place] [address] Obinna Desai, P.A.-C. Med Refill from Last [...] Comments Blood Pressure 111/68 12/24/2023 1:40 PM ACREAGE REPORTER Pulse 86 12/24/2023 1:40 PM ACREAGE REPORTER Temperature 36.1 ??C (96.9 ??F) 10/01/2023 1 1:08 AM ACREAGE REPORTER Respiratory Rate 20 10/01/2023 11:0 8 AM ACREAGE REPORTER Oxygen Saturation 98% 10/01/2023 11: 08 AM ACREAGE REPORTER Inhaled Oxygen Concentration - - Weight 85.2 kg (187 lb 13.3 oz) 12/25/2023 2:40 PM ACREAGE REPORTER Height 169.5 cm (5' 6.73) 12/25/2023 2:40 PM CS T Body Mass Index 29.66 12/25/2023 2:40 PM ACREAGE REPORTER Plan of Treatment Health Maintenance Due Date [...] Completed 12/24/2023 Medical Devices Implanted Type Area Otr Van Cdl Truck Driver Device Identifier Shelf Expiration Date Model / Serial / Lot Vlv Aort Cnf [facility] 23 - [id number] - [id number] Implanted:Qty: 1 on 09/19/2023 by Sarah Miller M.D., M.P.H. at [facility] Cardiac Valve Prosthesis N/A: Aortic Valve Artivion (Prev. CryoLife) 2028 ONXACE-2 3 / [id number] / Description:MRI conditional up to 3T, normal mode, per cargo worker. [email or web address] ation _All.pdf AFK Clp Hrzn Ti 24 Clp Akhil - [id number] Implanted:Qty: 1 on 09/19/2023 by Sarah Miller M.D., M.P.H. at [facility] Hardware e.g. pins/screws/r ods N/A: Chest Teleflex LLC [id number] 04/29/2028 [id number] / / [id number] Clp Hrzn Ti 6 Clp Akhil - [id number] Implanted:Qty: 1 on 09/19/2023 by Sarah Miller M.D., M.P.H. at [facility] Hardware e.g. pins/screws/r ods N/A: Chest [employer]flex [employer] [id number] / / Clp Hrzn Ti 24 Clp Sm Red - [id number] Implanted:Qty: 1 on 09/19/2023 by Sarah Miller M.D., M.P.H. at [facility] Hardware e.g. pins/screws/r ods N/A: Chest [employer] [id number] / / Clp Hrzn Ti 24 Clp Sm Red - [id number] Implanted:Qty: 1 on 09/19/2023 by Sarah Miller M.D., M.P.H. at [facility] Hardware e.g. pins/screws/r ods N/A: Chest [employer]flex [employer] [id number] / / [place] Surg Tfln 1x6 - [id number] Implanted:Qty: 1 on 09/19/2023 by Sarah Miller M.D., M.P.H. at [facility] Hardware e.g. pins/screws/r ods N/A: Chest Insmed [id number] / / Medtronic Linq-05/05/2019 Implanted:04/13 by Chet Badillo M.D., Ph.D. (Quantity not on file) Implantable Loop Recorder Chest Medtronic LNQ11 / [id number] / Description:MR Conditional 1 .5T and 3T - First level operating mode. - Jayro Abernathy 12/25/2023 Procedures Procedure Name Priority Date/Time Associated Diagnosis Comments BASIC METABOLIC PANEL, S/P Routine 02/04/2024 10:56 AM CDT Chronic Kidney Disease (CKD), Stage 3b Glomerular Filtration Rate (GFR) 30 To 44 (HCC) LIPID PANEL, S Routine 12/24/2023 9:44 AM ACREAGE REPORTER Stenosis Aortic Valve Acquired HEMOGLOBIN A1C, B [...] Seymour M.D., Ph.D. LAB BL OOD ADD-[facility] [address] [place] [address], [place] OWAT [facility] in [place] [address] [place] [address] * Lipid Panel (12/24/2023 9:44 AM ACREAGE REPORTER) Triglycerides 68 mg/dL 12/24/2023 1:00 PM ACREAGE REPORTER DTL Comment: ----REFERENCE VALUE---- Normal: <150 mg/dL Borderline High: 150-199 mg/dL High: 200-499 mg/dL Very High: > or =500 mg/dL Cholesterol, Total 107 mg/dL 2023 1:00 PM ACREAGE REPORTER DTL Comment: ----REFERENCE VALUE---- Desirable: < 200 mg/dL Borderline High: 200 - 239 mg/dL High: > or = 240 mg/dL Cholesterol, LDL, Calculated 50 mg/dL 12/24/2023 1:00 PM ACREAGE REPORTER DTL Comment: ----REFERENCE VALUE---- Desirable: <100 mg/dL Above Desirable: 100-129 mg/dL Borderline High: 130-159 mg/dL High: 160-189 mg/dL Very High: >=190 mg/dL ----ADDITIONAL INFORMATION---- LDL cholesterol calculated using the Iglesias/NIH equation. Cholesterol, HDL, S 42 >=40 mg/dL 12/24/2023 1:00 PM ACREAGE REPORTER DTL Cholesterol, Non-HDL, Calculated 65 mg/dL 12/24/2023 1:00 PM ACREAGE REPORTER DTL Comment: ----REFERENCE VALUE---- Desirable: <130 mg/dL Above Desirable: 130-159 mg/dL Borderline High: 160-189 mg/dL High: 190-219 mg/dL Very High: > or =220 mg/dL Fasting (8 HR or more) yes 12/24/2023 10:18 AM ACREAGE REPORTER DTL Blood (Blood, Venous) 12/24/2023 9:44 AM ACREAGE REPORTER 12/24/2023 10:18 AM ACREAGE REPORTER Gudelia Soto M.D. LAB BLOOD ADD-ON Performing Organization Address [facility] Co de Phone Number [facility] [address] [place], [place] [id number] [place] [address] [address] [place] [address] * (ABNORMAL) Hemoglobin A1c (08/22/2023 5:14 AM [...] BLOOD ADD-ON Performing Organization Address [facility] Co de Phone Number [facility] [address] [place], [place] [address] [address] [place] [address] * Colonoscopy (11/21/2022) EXT Colonoscopy Normal - See Scanned Report for Details Normal - See Scanned Report for Details, HIMS - Report Received and Scanned Historical Provider GI PROCEDURE ORDERAB LES from Last 3 Months or Most Recently Relevant to Health Maintenance Advance Directives For more information, please contact: [phone] * Full Code (Latest Code Status on [...] Answer Comments Full Code: Discussed Care Teams Mergers And Acquisitions Manager Relationship Specialty Start Date End Date Kylah Crum M.D. [address] [place] [phone] PCP - General Family Medicine 09/28/23
--- OUTSIDE RECORDS SUMMARY | 2024-05-29 14:26 | XMS_ITS | Clinical Summary ---
Author Organization [facility] Address [place], [place] [address] Care Team Providers Care Gastroenterology Nurse Practitioner Name Role Phone Kylah Crum Liz ESPINAL Primary Care Provider Medications No known medications Social History Tobacco Use Types Packs/Day Years Used Date Smoking Tobacco: Never Assessed Sex and Gender Information Value Date Recorded Sex Assigned at Not on file Gender Identity Not on file Sexual Orientation Not on file Obstetrics History Last Filed Vital Signs Vital Sign Reading Time Taken Comments Blood Pressure 107/69 10/03/2023 4:23 PM GRANITE POLISHER APPRENTICE Pulse 84 10/03/2023 4:23 PM GRANITE POLISHER APPRENTICE Temperature 36.8 ??C (98.2 ??F) 10/03/2023 3:16 PM CS T Respiratory Rate 20 10/03/2023 3:16 PM GRANITE POLISHER APPRENTICE Oxygen Saturation 98% 10/03/2023 4:23 PM GRANITE POLISHER APPRENTICE Inhaled Oxygen Concentration - - Weight 90.7 kg (200 lb) 10/03/2023 3:08 PM GRANITE POLISHER APPRENTICE Height 172.7 cm (5' 8) 10/03/2023 3:08 PM GRANITE POLISHER APPRENTICE Body Mass Index 30.41 10/03/2023 3:08 PM GRANITE POLISHER APPRENTICE Plan of Treatment Health Maintenance Due Date [...] season) 3 Influenza for age 65+ 07/13/2024 Care Teams Gastroenterology Nurse Practitioner Relationship Specialty Start Date End Date Kylah Crum MBBS [address] [place] [address] PCP - General Family Practice 10/03/23
[2024-05-29 15:52] LABS: Blood Urea Nitrogen* 42 mg/dL (7-30); Creatinine* 2.2 mg/dL (0.5-1.5); Estimated Glomerular Filt Rate 31 ml/min
[2024-05-29 15:57] LABS: C Reactive Protein* < 0.5 mg/dL (0.5-1.0)
== END 2024-05-29 14:23 | disposition home or self-care (01) ==
LOC: NPINS 14:22
PROVIDERS: PCP Internal Medicine; Visit Provider Internal Medicine Cardiovascular Disease
DX: I31.9 Disease of pericardium, unspecified (principal)
CPT/HCPCS: 82565; 84520; 86140

== ENCOUNTER 2024-06-04 10:48 | Outpatient (CLI) | payer MEDICARE, SELFPAY ==
--- OUTSIDE RECORDS SUMMARY | 2024-06-05 11:40 | XMS_ITS | Clinical Summary ---
Author Organization [facility] Address [address] [place] [address] Care Team Providers Care Rose Grader Name Role Phone Kylah Crum M.D. Primary Care Provider Source Comments Patient records contain information from all sites at [facility]. For routine questions regarding patient records, call [phone] during business hours, M-F 8:00 AM - 5:00 PM Central Time. Record requests for emergency care only can be directed to [phone] at any time.[facility] Allergies No known active allergies Medications Medication [...] Active Problems Problem Noted Date Diagnosed Date Detention (Current) Anticoagulant Treatment 09/13 Bypass Coronary Artery Graft Status Post 023 Cardiac Surgery Status Post 09/24/2023 Effusion Pleural 09/24/2023 Device Cardiac Status Post 09/23/2023 Overview (09/23/2023): Previously placed loop recorder Therapy Coating And Embossing Unit Operator Antiplatelet 09/22/2023 Coronary Arterial Bypass Graft [...] Communication Division of Nephrology and Hypertension in [place], [place] [address] [place] [address] Mare Arauz M.D., Ph.D. Appt Request 04/17/2024 Clinical Communication Department of Cardiovascular Medicine in [place], [place] [address] [place] [address] Gudelia Soto M.D. bilateral leg swelling; OS Labs (Scanned in) 04/15/2024 Orders Only [facility] Kylah Crum M.D. Screening Abdominal Aortic Aneurysm; Diabetes Mellitus Type 2 (HCC) 03/18/2024 Refill Department of Cardiovascular Medicine in [place], [place] [address] [place] [address] Obinna Desai, P.A.-C. Med Refill from Last [...] Comments Blood Pressure 111/68 12/24/2023 1:40 PM CLINIC NURSE Pulse 86 12/24/2023 1:40 PM CLINIC NURSE Temperature 36.1 ??C (96.9 ??F) 10/01/2023 1 1:08 AM CLINIC NURSE Respiratory Rate 20 10/01/2023 11:0 8 AM CLINIC NURSE Oxygen Saturation 98% 10/01/2023 11: 08 AM CLINIC NURSE Inhaled Oxygen Concentration - - Weight 85.2 kg (187 lb 13.3 oz) 12/25/2023 2:40 PM CLINIC NURSE Height 169.5 cm (5' 6.73) 12/25/2023 2:40 PM CS T Body Mass Index 29.66 12/25/2023 2:40 PM CLINIC NURSE Plan of Treatment Health Maintenance Due Date [...] Completed 12/24/2023 Medical Devices Implanted Type Area Radial Drill Press Set Up Operator Device Identifier Shelf Expiration Date Model / Serial / Lot Vlv Aort Cnf [facility] 23 - [id number] - [id number] Implanted:Qty: 1 on 09/19/2023 by Sarah Miller M.D., M.P.H. at [facility] Cardiac Valve Prosthesis N/A: Aortic Valve Artivion (Prev. CryoLife) 2028 ONXACE-2 [id number] / Description:MRI conditional up to 3T, normal mode, per bookie. [email or web address] ation _All.pdf AFK Clp Hrzn Ti 24 Clp Akhil - [id number] Implanted:Qty: 1 on 09/19/2023 by Sarah Miller M.D., M.P.H. at [facility] Hardware e.g. pins/screws/r ods N/A: Chest [employer] [id number] 04/29/2028 [id number] / / [id number] Clp Hrzn Ti 6 Clp Akhil - [id number] Implanted:Qty: 1 on 09/19/2023 by Sarah Miller M.D., M.P.H. at [facility] Hardware e.g. pins/screws/r ods N/A: Chest [employer] [id number] / / Clp Hrzn Ti 24 Clp Sm Red - [id number] Implanted:Qty: 1 on 09/19/2023 by Sarah Miller M.D., M.P.H. at [facility] Hardware e.g. pins/screws/r ods N/A: Chest [employer] [id number] / / Clp Hrzn Ti 24 Clp Sm Red - [id number] Implanted:Qty: 1 on 09/19/2023 by Sarah Miller M.D., M.P.H. at [facility] Hardware e.g. pins/screws/r ods N/A: Chest [employer]flex [employer] [id number] / / [facility] [facility] Tfl[facility] 1x6 - [id number] Implanted:Qty: 1 on 09/19/2023 by Sarah Miller M.D., M.P.H. at [facility] Hardware e.g. pins/screws/r ods N/A: Meetyl [id number] / / Medtronic Linq-05/05/2019 Implanted:04/13 by Chet Badillo M.D., Ph.D. (Quantity not on file) Implantable Loop Recorder Chest Medtronic [id number] / [id number] / Description:MR Conditional 1 .5T and 3T - First level operating mode. - Jayro Abernathy 12/25/2023 Procedures Procedure Name Priority Date/Time Associated Diagnosis Comments OUTSIDE DX CHEST Routine 06/04/2024 12:4 0 PM CDT BASIC METABOLIC PANEL, S/P Routine 02/04/2024 10:56 AM CDT Chronic Kidney Disease (CKD), Stage 3b Glomerular Filtration Rate (GFR) 30 To 44 (HCC) LIPID PANEL, S Routine 12/24/2023 9:44 AM CLINIC NURSE Stenosis Aortic Valve Acquired HEMOGLOBIN A1C, B Routine 08/22/2023 5:1 4 AM CDT COLONOSCOPY Routine 11/21/2022 from Last 3 Months or Most Recently Relevant to Health Maintenance Results * XR chest 2V-Outside Chest Xray (06/04/2024 12:40 PM CDT) 06/04/2024 12:3 6 PM CDT Narrative IIMS - 06/04/2024 1:17 PM CDT This order has been created and auto-finalized to support the import of outside images. If available, original interpretation can be found on the Media Tab in Chart Review, in Document Viewer, as an image in QREADS or as an Addendum. If a re-interpretation or overread is required please follow defined workflow.?? Provider Not In System IMG DIAGNOSTIC IM AGING PROCEDURES IIMS NA * (ABNORMAL) Basic Metabolic Panel (02/04/2024 10:56 [...] OOD ADD-ON [facility] [address] [place] [address], [facility] [place] [address] [place] [address] * Lipid Panel (12/24/2023 9:44 AM CLINIC NURSE) Triglycerides 68 mg/dL 12/24/2023 1:00 PM CLINIC NURSE DTL Comment: ----REFERENCE VALUE---- Normal: <150 mg/dL Borderline High: 150-199 mg/dL High: 200-499 mg/dL Very High: > or =500 mg/dL Cholesterol, Total 107 mg/dL 2023 1:00 PM CLINIC NURSE DTL Comment: ----REFERENCE VALUE---- Desirable: < 200 mg/dL Borderline High: 200 - 239 mg/dL High: > or = 240 mg/dL Cholesterol, LDL, Calculated 50 mg/dL 12/24/2023 1:00 PM CLINIC NURSE DTL Comment: ----REFERENCE VALUE---- Desirable: <100 mg/dL Above Desirable: 100-129 mg/dL Borderline High: 130-159 mg/dL High: 160-189 mg/dL Very High: >=190 mg/dL ----ADDITIONAL INFORMATION---- LDL cholesterol calculated using the Iglesias/NIH equation. Cholesterol, HDL, S 42 >=40 mg/dL 12/24/2023 1:00 PM CLINIC NURSE DTL Cholesterol, Non-HDL, Calculated 65 mg/dL 12/24/2023 1:00 PM CLINIC NURSE DTL Comment: ----REFERENCE VALUE---- Desirable: <130 mg/dL Above Desirable: 130-159 mg/dL Borderline High: 160-189 mg/dL High: 190-219 mg/dL Very High: > or =220 mg/dL Fasting (8 HR or more) yes 12/24/2023 10:18 AM CLINIC NURSE DTL Blood (Blood, Venous) 12/24/2023 9:44 AM CLINIC NURSE 12/24/2023 10:18 AM CLINIC NURSE Gudelia Soto M.D. LAB BLOOD ADD-ON [facility] [place] [address], [facility] [place] [address] * (ABNORMAL) Hemoglobin A1c (08/22/2023 5:14 AM [...] Cata Richards APRN.N.P., D.N.P. LAB BLOOD ADD-ON [facility] [address] [place] [address], [place] DTL [facility] [address] [place] [address] * Colonoscopy (11/21/2022) EXT Colonoscopy Normal - See Scanned Report for Details Normal - See Scanned Report for Details, HIMS - Report Received and Scanned Historical Provider GI PROCEDURE ORDERAB LES from Last 3 Months or Most Recently Relevant to Health Maintenance Advance Directives For more information, please contact: [phone] * Full Code (Latest Code Status on [...] Answer Comments Full Code: Discussed Care Teams Rose Grader Relationship Specialty Start Date End Date Kylah Crum M.D. [address] [place] [phone] PCP - General Family Medicine 09/28/23
--- OUTSIDE RECORDS SUMMARY | 2024-06-05 11:41 | XMS_ITS | Encounter Summary ---
Author Organization [facility] Address [address] [place] [address] Care Team Providers Care Senior Art Director Name Role Phone Kylah Crum M.D. Primary Care Provider Reason for Referral * Outpatient (Routine) - Authorized Specialty Diagnoses / Procedures Referred By Sebas gimenez Referred To Contact Diagnoses Screening Abdominal Aortic Aneurysm Procedures US Aorta AAA Screening Kylah Crum M.D. [address] [place] [address] [facility] Referral ID Status Reason Start Date Expiration Date V isits Requested Visits Authorized [id number] Authorized 04/15/2024 04/15/2025 1 1 Encounter Details Date Type Department Care Team (Late st Contact Info) Description 04/15/2024 Orders Only [facility] Kylah Crum M.D. [address] [place] [address] Screening Abdominal Aortic Aneurysm; Diabetes [...] as of this encounter Care Teams Senior Art Director Relationship Specialty Start Date End Date Kylah Crum M.D. [address] [place] [phone] PCP - General Family Medicine 09/28/23 documented as of this encounter
--- OUTSIDE RECORDS SUMMARY | 2024-06-05 11:41 | XMS_ITS | Clinical Summary ---
Author Organization [facility] Address [place], [place] [address] Care Team Providers Care Telehealth Case Manager Name Role Phone Kylah Crum Liz ESPINAL [...] Comments Blood Pressure 107/69 10/03/2023 4:23 PM STOGIE PACKER Pulse 84 10/03/2023 4:23 PM STOGIE PACKER Temperature 36.8 ??C (98.2 ??F) 10/03/2023 3:16 PM CS T Respiratory Rate 20 10/03/2023 3:16 PM STOGIE PACKER Oxygen Saturation 98% 10/03/2023 4:23 PM STOGIE PACKER Inhaled Oxygen Concentration - - Weight 90.7 kg (200 lb) 10/03/2023 3:08 PM STOGIE PACKER Height 172.7 cm (5' 8) 10/03/2023 3:08 PM STOGIE PACKER Body Mass Index 30.41 10/03/2023 3:08 PM STOGIE PACKER Plan of Treatment Health Maintenance Due Date [...] Influenza for age 65+ 07/13/2024 Care Teams Telehealth Case Manager Relationship Specialty Start Date End Date Kylah Crum MBBS [address] [place] [phone] PCP - General Family Practice 10/03/23
--- OUTSIDE RECORDS SUMMARY | 2024-06-05 11:41 | XMS_ITS | Encounter Summary ---
Author Organization [facility] Address [address] [place] [address] Care Team Providers Care Car Refinisher Name Role Phone Kylah Crum M.D. Primary Care Provider [phone] Reason for Visit * Reason Comments Med Refill Encounter Details Date Type Department Care Team (Late st Contact Info) Description 03/18/2024 Refill Department of Cardiovascular Medicine in [place], [place] [address] [place] [address] Obinna Desai, P.A.-C. [address] [place] [phone] Med Refill Social History Tobacco Use Types [...] your living situation today? [facility] 08/29/2023 Sex and [...] as of this encounter Care Teams Car Refinisher Relationship Specialty Start Date End Date Kylah Crum M.D. [address] [place] [phone] PCP - General Family Medicine 09/28/23 documented as of this encounter
--- OUTSIDE RECORDS SUMMARY | 2024-06-05 11:41 | XMS_ITS | Encounter Summary ---
Author Organization [facility] Address [address] [place] [address] Care Team Providers Care Knitting Demonstrator Name Role Phone Kylah Crum M.D. Primary Care Provider Reason for Visit * Reason Onset Date Comments bilateral leg swelling 04/17/2024 OS Labs 04/17/2024 Scanned in Encounter Details Date Type Department Care Team (Latest Contact Info) Description 04/17/2024 Clinical Communication Department of Cardiovascular Medicine in [place], [place] [address] [place] [address] Gudelia Soto M.D. [address] [place] [phone] bilateral leg swelling; OS Labs (Scanned in) Social History Tobacco Use Types Packs/Day Years [...] Miscellaneous Notes * Telephone Encounter - Lester Phelps R.N. - 04/17/2024 4:46 PM CDT Phone call returned to ANGIE Henriquez at [facility]. She had left for the day so the real estate legal secretary left a message with our phone number. * Telephone Encounter - Lester Phelps RJarrettN. - 04/17/2024 3:02 PM CDT Phone call returned to ANGIE Henriquez at the [facility]. Mr. Harris was in clinic for an [...] Harris to see another provider at the [facility] to be assessed. Addendum: Phone call placed [...] documented as of this encounter Care Teams Knitting Demonstrator Relationship Specialty Start Date End Date Kylah Crum M.D. [address] [place] [phone] PCP - General Family Medicine 09/28/23 documented as of this encounter
--- OUTSIDE RECORDS SUMMARY | 2024-06-05 11:41 | XMS_ITS ---
Author Organization [facility] Address [address] [place] [address] Care Team Providers Care Plant Protection Officer Name Role Phone Unavailable Unavailable Unavailable Surgery Details Not on file Complications Check Surgery Details section. Procedure Estimated Blood Loss Check Surgery Details section. Procedure Findings Check Surgery Details section. Procedure Specimens Taken Check Surgery Details section.
--- OUTSIDE RECORDS SUMMARY | 2024-06-05 11:41 | XMS_ITS | Referral Summary ---
Author Organization [facility] Address [address] [place] [address] Care Team Providers Care Blanket Cutting Machine Operator Name Role Phone Kylah Crum M.D. Primary Care Provider [phone] Source Comments Patient records contain information from all sites at [facility]. For routine questions regarding patient records, call [phone] during business hours, M-F 8:00 AM - 5:00 PM Central Time. Record requests for emergency care only can be directed to [phone] at any time.[facility] Encounters Date Type Department Care Team Description 04/17/2024 Clinical Communication Division of Nephrology and Hypertension in [place], [place] [address] [place] [address] Mare Arauz M.D., Ph.D. Appt Request 04/17/2024 Clinical Communication Department of Cardiovascular Medicine in [place], [place] [address] [place] [address] Gudelia Soto M.D. bilateral leg swelling; OS Labs (Scanned in) 04/15/2024 Orders Only [facility] Kylah Crum M.D. Screening Abdominal Aortic Aneurysm; Diabetes Mellitus Type 2 (HCC) 03/18/2024 Refill Department of Cardiovascular Medicine in [place], [place] [address] [place] [address] Obinna Desai, P.A.-C. 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) Anticoagulant Treatment 09/13 Bypass Coronary Artery Graft Status Post 023 Cardiac Surgery Status Post 09/24/2023 Effusion Pleural 09/24/2023 Device Cardiac Status Post 09/23/2023 Overview (09/23/2023): Previously placed loop recorder Therapy Longterm Antiplatelet 09/22/2023 Coronary Arterial Bypass Graft Status [...] Comments Blood Pressure 111/68 12/24/2023 1:40 PM FOLDING MACHINE TENDER Pulse 86 12/24/2023 1:40 PM FOLDING MACHINE TENDER Temperature 36.1 ??C (96.9 ??F) 10/01/2023 1 1:08 AM FOLDING MACHINE TENDER Respiratory Rate 20 10/01/2023 11:0 8 AM FOLDING MACHINE TENDER Oxygen Saturation 98% 10/01/2023 11: 08 AM FOLDING MACHINE TENDER Inhaled Oxygen Concentration - - Weight 85.2 kg (187 lb 13.3 oz) 12/25/2023 2:40 PM FOLDING MACHINE TENDER Height 169.5 cm (5' 6.73) 12/25/2023 2:40 PM CS T Body Mass Index 29.66 12/25/2023 2:40 PM FOLDING MACHINE TENDER Plan of Treatment Not on file Medical Devices Implanted Type Area Cloth Sander Device Identifier Shelf Expiration Date Model / Serial / Lot Vlv Aort Cnf [facility] 23 - [id number] - [id number] Implanted:Qty: 1 on 09/19/2023 by Sarah Miller M.D., M.P.H. at [facility] Cardiac Valve Prosthesis N/A: Aortic Valve Artivion (Prev. CryoLife) 2028 ONXACE-2 / [id number] / Description:MRI conditional up to 3T, normal mode, per fleet operations manager. [email or web address]/[email or web address] ation _All.pdf AFK Clp Hrzn Ti 24 Clp Akhil - [id number] Implanted:Qty: 1 on 09/19/2023 by Sarah Miller M.D., M.P.H. at [facility] Hardware e.g. pins/screws/r ods N/A: Chest Teleflex LLC [id number] 04/29/2028 [id number] / / [id number] Clp Hrzn Ti 6 Clp Akhil - [id number] Implanted:Qty: 1 on 09/19/2023 by Sarah Miller M.D., M.P.H. at [facility] Hardware e.g. pins/screws/r ods N/A: Chest Teleflex LLC [id number] / / Clp Hrzn Ti 24 Clp Sm Red - [id number] Implanted:Qty: 1 on 09/19/2023 by Sarah Miller M.D., M.P.H. at [facility] Hardware e.g. pins/screws/r ods N/A: Chest [employer]flex LLC [id number] / / Clp Hrzn Ti 24 Clp Sm Red - [id number] Implanted:Qty: 1 on 09/19/2023 by Sarah Miller M.D., M.P.H. at [facility] Hardware e.g. pins/screws/r ods N/A: Chest Teleflex LLC [id number] / / [place] [facility] Tfln 1x6 - [id number] Implanted:Qty: 1 on 09/19/2023 by Sarah Miller M.D., M.P.H. at [facility] Hardware e.g. pins/screws/r ods N/A: Chest Jobvite [id number] / / Medtronic Linq-05/05/2019 Implanted:04/13 by Chet Badillo M.D., Ph.D. (Quantity not on file) Implantable Loop Recorder Chest Medtronic LNQ11 / [id number] / Description:MR Conditional 1 .5T and [...] LIPID PANEL, S Routine 12/24/2023 9:44 AM FOLDING MACHINE TENDER Stenosis Aortic Valve Acquired HEMOGLOBIN A1C, B [...] In System IMG DIAGNOSTIC IM AGING PROCEDURES IIWV NA * (ABNORMAL) Basic Metabolic Panel (02/04/2024 [...] Seymour M.D., Ph.D. LAB BL OOD ADD-ON [facility] [address] [place] [address], [facility] [place] [address] [place] [address] * Lipid Panel (12/24/2023 9:44 AM FOLDING MACHINE TENDER) Triglycerides 68 mg/dL 12/24/2023 1:00 PM FOLDING MACHINE TENDER DTL Comment: ----REFERENCE VALUE---- Normal: <150 mg/dL Borderline High: 150-199 mg/dL High: 200-499 mg/dL Very High: > or =500 mg/dL Cholesterol, Total 107 mg/dL 2023 1:00 PM FOLDING MACHINE TENDER DTL Comment: ----REFERENCE VALUE---- Desirable: < 200 mg/dL Borderline High: 200 - 239 mg/dL High: > or = 240 mg/dL Cholesterol, LDL, Calculated 50 mg/dL 12/24/2023 1:00 PM FOLDING MACHINE TENDER DTL Comment: ----REFERENCE VALUE---- Desirable: <100 mg/dL Above Desirable: 100-129 mg/dL Borderline High: 130-159 mg/dL High: 160-189 mg/dL Very High: >=190 mg/dL ----ADDITIONAL INFORMATION---- LDL cholesterol calculated using the Iglesias/NIH equation. Cholesterol, HDL, S 42 >=40 mg/dL 12/24/2023 1:00 PM FOLDING MACHINE TENDER DTL Cholesterol, Non-HDL, Calculated 65 mg/dL 12/24/2023 1:00 PM FOLDING MACHINE TENDER DTL Comment: ----REFERENCE VALUE---- Desirable: <130 mg/dL Above Desirable: 130-159 mg/dL Borderline High: 160-189 mg/dL High: 190-219 mg/dL Very High: > or =220 mg/dL Fasting (8 HR or more) yes 12/24/2023 10:18 AM FOLDING MACHINE TENDER DTL Blood (Blood, Venous) 12/24/2023 9:44 AM FOLDING MACHINE TENDER 12/24/2023 10:18 AM FOLDING MACHINE TENDER Gudelia Soto M.D. LAB BLOOD ADD-ON Performing Organization Address [facility] [place] [address], [facility] [address] [address] * (ABNORMAL) Hemoglobin A1c (08/22/2023 5:14 AM [...] D.N.P. LAB BLOOD ADD-ON Performing Organization Address [facility]/ZIP Co de Phone Number [facility] [address] [place] [address], [place] DTL [facility] [address] [place] [address] * Colonoscopy (11/21/2022) EXT Colonoscopy Normal - See Scanned Report for Details Normal - See Scanned Report for Details, HIMS - Report Received and Scanned Historical Provider GI PROCEDURE ORDERAB LES from Last 3 Months or Most Recently Relevant to Health Maintenance Advance Directives For more information, please contact: [phone] * Full Code (Latest Code Status on [...] Answer Comments Full Code: Discussed Care Teams Blanket Cutting Machine Operator Relationship Specialty Start Date End Date Kylah Crum M.D. [address] [place] [phone] PCP - General Family Medicine 09/28/23
--- OUTSIDE RECORDS SUMMARY | 2024-06-05 11:41 | XMS_ITS | Encounter Summary ---
Author Organization [facility] Address [address] [place] [address] Care Team Providers Care Paint Spray Inspector Name Role Phone Kylah Crum M.D. Primary Care Provider Reason for Visit * Reason Onset Date Comments Appt Request 04/17/2024 Encounter Details Date Type Department Care Team (Latest Contact Info) Description 04/17/2024 Clinical Communication Division of Nephrology and Hypertension in [place], [place] [address] [place] [address] Mare Arauz M.D., Ph.D. [address] [place] [address] Appt Request Social History Tobacco Use Types [...] documented as of this encounter Care Teams Paint Spray Inspector Relationship Specialty Start Date End Date Kylah Crum M.D. [address] [place] [phone] PCP - General Family Medicine 09/28/23 documented as of this encounter
== END 2024-06-04 10:49 | disposition home or self-care (01) ==
LOC: NFLDREF 06-05 11:32
PROVIDERS: PCP Internal Medicine; Referring Provider Internal Medicine; Visit Provider Internal Medicine Nephrology
DX: N18.4 Chronic kidney disease, stage 4 (severe) (principal)
CPT/HCPCS: 80053; 82043; 82570; 87086

== ENCOUNTER 2024-08-04 13:43 | Outpatient (CLI) | payer MEDICARE, SELFPAY ==
--- OUTSIDE RECORDS SUMMARY | 2024-08-04 13:50 | XMS_ITS | Clinical Summary ---
Author Organization [facility] Address [address] [place] [address] Care Team Providers Care Mail Deliverer Name Role Phone Elsewhere, Pcp Primary Care Provider Unavailabl e Source Comments Patient records contain information from all sites at [facility]. For routine questions regarding patient records, call [phone] during business hours, M-F 8:00 AM - 5:00 PM Central Time. Record requests for emergency care only can be directed to [phone] at any time.[facility] Allergies No known active allergies Medications Medication Sig Dispensed Refills Start Date End Date Status cholecalcifero l 10 mcg (400 Unit) tablet Take 10 mcg by mouth daily. Active cyanocobalamin 2,000 mcg tablet Take 2,000 mcg by mouth daily. Active acetaminophen (TYLENOL) 500 mg tablet Take 1,000 mg by mouth every 6 (six) hours as needed for pain. Active aspirin 81 mg chewable tablet Chew 1 tablet (81 mg total) daily. 3 024 Active atorvastatin (LIPITOR) 80 mg tablet Take 1 tablet (80 mg total) by mouth at bedtime. 3 024 Active finasteride (PROSCAR) 5 mg tablet Take 1 tablet (5 mg total) by mouth daily. 3 Active rOPINIRole (REQUIP) 0.5 mg tablet Take 1 tablet (0.5 mg total) by mouth 3 (three) times a day. 3 Active tamsulosin (FLOMAX) 0.4 mg 24 hr capsule Take 1 capsule (0.4 mg total) by mouth at bedtime. 3 Active metoprolol succinate (TOPROL-XL) 50 mg 24 hr tablet Take 1 tablet by mouth daily. 4 Active iron,carbonyl- vitamin C (VITRON-C) 65 mg iron- [address] tablet Take 1 tablet (65 mg of iron total) by mouth daily. Do not crush or chew. 90 tablet 3 4 Active lancets 2 each daily. 200 each 4 Active alcohol swabs pads, medicated Use as needed for diabetes control 1500 each 3 4 Active blood sugar diagnostic strips 2 test daily. 200 test 4 Active blood-glucose meter misc Test as directed for diabetes control. 1 each 4 Active blood glucose control high,low (Accu-Chek Guide L1-L2 Ctrl Nimo) solution Glucose control solution provides an easy way to ensure accurate blood glucose testing. 1 each 4 Active pen needle, diabetic (BD Ultra-Fine Short Pen Needle) 31 gauge x 5/16 needle 2 Injection daily. 100 each 4 Active colchicine (Colcrys) 0.6 mg tablet Take 1 tablet (0.6 mg total) by mouth daily. 30 tablet 4 Active pantoprazole (Protonix) 40 mg EC tablet Take 1 tablet (40 mg total) by mouth daily before morning meal. 30 tablet 4 024 Active warfarin (Jantoven) 1 mg tabletIndicati ons:Prosthesis Aortic Valve Take 2 mg daily until your INR check with Anticoagulation Clinic 7 tablet 4 Active predniSONE (Deltasone) 5 mg tablet Take 4 tablets (20 mg) by mouth daily for 28 days, THEN 3.5 tablets (17.5 mg) daily for 14 days, THEN 3 tablets (15 mg) daily for 14 days until pericardial appt. Further dose to be decided at appt. DO NOT STOP TAKING ABRUPTLY 1020 tablet 4 Active torsemide (Demadex) 20 mg tablet Take 1 tablet (20 mg total) by mouth daily. 30 tablet 4 10/20/2 024 Active sulfamethoxazo le-trimethopri m (Bactrim) 400-80 mg per tabletIndicati ons:Prophylaxi s, medical Take 1 tablet by mouth daily for 28 doses Indications: Prophylaxis, medical. 28 tablet 4 024 Active insulin NPH (NovoLIN N FlexPen) 100 unit/mL (3 mL) pen Inject 25 units subcutaneously in the morning and 10 units in the evening. Call in for dose adjustment 4 Active metoprolol tartrate (LOPRESSOR) 25 mg tablet Take 1 tablet (25 mg total) by mouth 2 (two) times a day. 60 tablet 3 024 Discontinued glipiZIDE (GLUCOTROL XL) 2.5 mg 24 hr tablet Take 1 tablet (2.5 mg total) by mouth daily with breakfast. 30 tablet 3 024 Discontinued(St op Taking at Discharge) warfarin (JANTOVEN) 1 mg tabletIndicati ons:Prosthesis Aortic Valve Take per Anticoagulation Clinic 180 tablet 3 3 024 Discontinued torsemide (DEMADEX) 20 mg tablet Take 40 mg by mouth daily. 4 024 Discontinued spironolactone (ALDACTONE) 25 mg tablet Take 1 tablet by mouth daily. 4 024 Discontinued colchicine (COLCRYS) 0.6 mg tablet Take 0.5 tablets (0.3 mg total) by mouth daily. 45 tablet 3 4 024 Discontinued(St op Taking at Discharge) predniSONE (DELTASONE) 5 mg tablet Take 1 tablet (5 mg total) by mouth daily. 14 tablet 4 024 Discontinued insulin NPH (NovoLIN N FlexPen) 100 unit/mL (3 mL) pen Inject 20 units subcutaneously in the morning and 10 units in the evening. Call in for dose adjustment 15 mL 4 024 Discontinued Active Problems Problem Noted Date Diagnosed Date Edema Leg 07/25/2024 Hyperparathyroidism Renal Secondary 06/11/2024 [facility] (Current) Anticoagulant Treatment 09/13 Bypass Coronary Artery Graft Status Post Cardiac Surgery Status Post 09/24/2023 Effusion Pleural 09/24/2023 Device Cardiac Status Post 09/23/2023 Overview (09/23/2023): Previously placed loop recorder Therapy Toxicology Supervisor Antiplatelet 09/22/2023 Coronary Arterial Bypass Graft Status Post Perso nal History 09/20/2023 Prosthesis Aortic Valve 09/20/2023 Coronary Artery Disease Without Angina Pectoris 09/20/2023 Anemia Posthemorrhagic Acute (Blood Loss Anemia) 09/20/2023 Failure Renal Acute (Acute Kidney Injury) 2022 Hyperkalemia 09/20/2023 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 09/20/2023 Stroke Cerebrovascular Accident Personal History 09/18/2023 Anemia In Chronic Kidney Disease 09/06/2023 Stenosis Aortic Valve Acquired 08/19/2023 Hypertensive Heart And Chron ic Kidney Disease Without Heart Failure With Stage 1 To 4 Chronic Kidney Disease Or Unspecified Chronic Kidney Disease 08/19/2023 Hyperlipidemia On Treatment 08/19/2023 Benign Prostatic [...] Encounters Date Type Department Care Team Description 08/04/2024 Clinical Communication Division of Endocrinology in [address] [phone] Emerson Goddard R.N. Communication 07/30/2024 9:50 AM CDT Ancillary Procedure Department of Nursing 07/30/2024 9:45 AM CDT Ancillary Procedure Department of Nursing 07/30/2024 Clinical Communication [facility] [address] [place] [phone] Barbara Valencia M.B., B.Ch. 07/28/2024 10:40 AM CDT Ancillary Procedure Department of Nursing 07/25/2024 1:35 PM CDT Ancillary Procedure Department of Nursing 07/25/2024 1:00 PM CDT Ancillary Procedure Department of Nursing 07/24/2024 4:49 PM CDT - 08/01/2024 2:08 PM CDT Hospital Encounter [facility], [facility], Fourth Floor [address] [place] [phone] Fanny Goodwin M.D., M.S. Haily Campbell APRN, C.N.P., D.N.P. Josee Devlin P.A.-C., M.S. Yasmine Garduno M.D., Ph.D. Deven Clement M.D., M.S. Shameka Feldman M.D. Fanny Zelaya M.D. Edema Leg (Primary Dx); Shortness Of Breath; Effusion Pleural; Diabetes Mellitus Type 2 (HCC); Prosthesis Aortic Valve Discharge Disposition: Home or Self Care 06/11/2024 1:30 PM CDT External Outreach Division of Nephrology and Hypertension in [place], [place] [address] [place] [address] Atif Nance Jr., D.O. 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 1 To 4 Chronic Kidney Disease Or Unspecified Chronic Kidney Disease (Primary Dx); Atrial Fibrillation Paroxysmal (HCC); Anemia In Chronic Kidney Disease; Hemiplegia Dominant Side Right (HCC); Hyperparathyroidism Renal Secondary (HCC); Prosthesis Aortic Valve from Last 3 Months Family History Medical [...] Packs/Day Years Used Date Smoking Tobacco: Never Smokeless Tobacco: Never Tobacco Cessation:Counseling Given: Not Answered Comments:Smoked recreationally over 40 years ago - a few cigarettes once in a while. Alcohol Use Standard Drinks/Week Comments Never 0 (1 standard drink = 0.6 oz pur e alcohol) [facility] Utilities Answer Date Recorded In the past 12 months has e [employer], gas, oil, or water [employer] threatened to shut off services in your home? No 07/25/2024 Humiliation, Afraid, Rape, and Kick questionnair e Answer Date Recorded Within the last year, have y ou been afraid of your partner or ex-partner? No 07/25/2024 Within the last year, have y ou been humiliated or emotionally abused in other ways by your partner or ex-partner? No Within the last year, have y ou been kicked, hit, slapped, or otherwise physically hurt by your partner or ex-partner? No 07/25/2024 Within the last year, have y ou been raped or forced to have any kind of sexual activity by your partner or ex-partner? No 07/25/2024 Overall Financial Resource Strain (CARDIA) Answe r [...] the money to buy more. Never true 07/25/20 24 Within the past 12 months, t he food you bought just didn't last and you didn't have money to get more. Never true 07/25/2024 PRAPARE - Transportation Answer Date Re corded In the past 12 months, has l ack of transportation kept you from medical appointments or from getting medications? No 07/13 In the past 12 months, has l ack of transportation kept you from meetings, work, or from getting things needed for daily living? No 07/25/2024 Depression Answer Date Recor ded PHQ-9 Total Score (max 27) 1 09/10 Nutrition Answer Date Recorded On average, how many serving s of fruits and vegetables do you eat per day (serving size is equal to 1 cup or approximately the size of a tennis ball)? 0-2 08/29/2023 Dental Answer Date Recorded Dental: Regular Dentist No 08/29/20 Employment Answer Date Recorded Employment status Retired 08/29/2023 Housing Stability Answer Date Recorded What is your living situation today? I have a [facility] place to live 07/25/2024 Sex and Gender Information Value Date Recorded Sex Assigned at Male 08/29/2023 11:06 AM CDT Gender Identity Male 08/29/2023 11:06 AM CDT Sexual Orientation Straight 08/29/2023 11 :06 AM CDT Last Filed Vital Signs Vital Sign Reading Time Taken Comments Blood Pressure 105/69 08/01/2024 11:15 AM CDT Pulse 66 08/01/2024 8:45 AM CDT Temperature 36.5 ??C (97.7 ??F) 08/01/2024 11:00 AM C DT Respiratory Rate 19 08/01/2024 1:15 PM CDT Oxygen Saturation 95% 08/01/2024 11:15 AM CDT Inhaled Oxygen Concentration - - Weight 87.2 kg (192 lb 3.9 oz) 08/01/2024 4:46 A M CDT Height 169 cm (5' 6.54) 07/25/2024 2:00 PM CDT Body Mass Index 30.53 07/25/2024 2:00 PM CDT Plan of Treatment Upcoming Encounters Date Type Department Care Team (Latest Contact Info) Description 09/29/2024 1:00 PM LABORATORY TECHNICIAN Clinical Communication Virtual Review in [place], [place] 200 [place] [address] 10/02/2024 10:00 AM LABORATORY TECHNICIAN Ancillary Procedure Department of Cardiovascular Medicine in [place], [place] [address] [place] [phone] Deven Clement M.D., M.S. [address] [place] [phone] 10/02/2024 10:45 AM LABORATORY TECHNICIAN Appointment Department of Radiology, [facility] in [place], [place] [address] [place] [phone] Deven Clement M.D., M.S. [address] [place] [phone] 10/02/2024 11:20 AM LABORATORY TECHNICIAN Appointment Department of Laboratory Medicine and Pathology, [facility] in [address] [phone] Deven Clement M.D., M.S. [address] [place] [phone] 10/02/2024 12:45 PM LABORATORY TECHNICIAN Appointment Department of Radiology, [facility] in [place], [place] [address] [place] [phone] Deven Clement M.D., M.S. [address] [place] [phone] 10/02/2024 2:00 PM LABORATORY TECHNICIAN Comprehensive Visit Department of Cardiovascular Medicine in [address] [phone] Keagan Tellez M.D. [address] [place] [phone] Health Maintenance Due Date Last Done Comments Abdominal Aortic Aneurysm (A AA) Screen 1952 CT Colonography 1952 Cologuard 1952 Diabetic Office Visit with F oot Exam 1952 Dilated Eye Exam 1952 FIT 1952 Hepatitis C Screening 1952 Urine Albumin 1952 Pneumococcal vaccine (65+ ye ars) (1 of 2 - PCV) 1958 DTaP,Tdap,and Td Vaccines (1 - Tdap) 1971 Zoster Vaccines (1 of 2) 2002 Hepatitis B Vaccines (1 of 3 - Risk 3-dose series) 2012 RSV vaccine - (32-3 6 weeks) or 60+ years (1 - Risk 60-74 years 1-dose series) 2012 Depression Screening (Annual PHQ-2) 11/12/2023 COVID-19 Vaccine (1 - 2023-2 5 season) 2024 Influenza Vaccine (#1) 2024 Hemoglobin A1C 01/26/2025 07/29/2024, 08/22/2023 Office Visit for Blood Press ure Check / Re-check 06/11/2025 06/11/2024 Creatinine Level (Kidney Fun ction Test) 08/01/2025 08/01/2024, 07/31/2024, 07/30/2024, Additional history exists Potassium Level 08/01/2025 08/01/2024, 07/13, 07/30/2024, Additional history exists Sodium Level 08/01/2025 08/01/2024, 07/13, 07/30/2024, Additional history exists Lipid (Cholesterol) Screening 12/24/2028 12/24/2023, 08/21/2023 Colonoscopy 11/21/2032 11/21/2022, 11/12 (Performed elsewhere), 11/21/2022 Colorectal Cancer Screening 11/21/2032 Fall Risk Screen (Annual) Completed 07/25/2024 Medical Devices Implanted Type Area Food Assembler Kitchen Device Identifier Shelf Expiration Date Model / Serial / Lot Vlv Aort Cnf [facility] 23 - [id number] - [id number] Implanted:Qty: 1 on 09/19/2023 by Sarah Miller M.D., M.P.H. at [facility] Cardiac Valve Prosthesis N/A: Aortic Valve Artivion (Prev. AdmaticLife) 2028 ONXACE-2 3 / [id number] / Description:MRI conditional up to 3T, normal mode, per special forces communications sergeant. [email or web address] AFK Clp Hrzn Ti 24 Clp Akhil - [id number] Implanted:Qty: 1 on 09/19/2023 by Sarah Miller M.D., M.P.H. at [facility] Hardware e.g. pins/screws/r ods N/A: Chest [employer] [id number] 04/29/2028 [id number] / / [id number] Clp Hrzn Ti 6 Clp Akhil - [id number] Implanted:Qty: 1 on 09/19/2023 by Sarah Miller M.D., M.P.H. at [facility] Hardware e.g. pins/screws/r ods N/A: Chest [employer] [id number] / / Clp Hrzn Ti 24 Clp Sm Red - [id number] Implanted:Qty: 1 on 09/19/2023 by Sarah Miller M.D., M.P.H. at [facility] Hardware e.g. pins/screws/r ods N/A: Chest [employer] [id number] / / Clp Hrzn Ti 24 Clp Sm Red - [id number] Implanted:Qty: 1 on 09/19/2023 by Sarah Miller M.D., M.P.H. at [facility] Hardware e.g. pins/screws/r ods N/A: Chest [employer] [id number] / / [place] [facility] T[facility] 1x6 - [id number] Implanted:Qty: 1 on 09/19/2023 by Sarah Miller M.D., M.P.H. at [facility] Hardware e.g. pins/screws/r ods N/A: Chest [employer] [id number] / / Medtronic Linq-05/05/2019 Implanted:04/13 by Chet Badillo M.D., Ph.D. (Quantity not on file) Implantable Loop Recorder Chest Medtronic [id number] / [id number] / Description:MR Conditional 1 .5T and 3T - First level operating mode. - Jayro Abernathy 12/25/2023 Procedures Procedure Name Priority Date/Time Associated Diagnosis Comments GLUCOSE POCT, B Routine 08/01/2024 11:23 AM CDT CBC WITH DIFFERENTIAL, B Routine 08/01/2024 7:41 AM CDT PROTHROMBIN TIME (PT), P Routine 08/01/2024 7:41 AM CDT CYSTATIN C WITH EGFR Routine 08/01/2024 7:40 AM CDT RENAL FUNCTION PANEL, S Routine 08/01/2024 7:40 AM CDT GLUCOSE POCT, B Routine 08/01/2024 6:36 AM CDT GLUCOSE POCT, B Routine 07/31/2024 9:52 PM CDT GLUCOSE POCT, B Routine 07/31/2024 5:25 PM CDT GLUCOSE POCT, B Routine 07/31/2024 12:09 PM CDT DIPSTICK, U Routine 07/31/2024 11:33 AM CDT PH, U Routine 07/31/2024 11:33 AM CDT MICROSCOPIC AUTOMATED Routine 07/31/2024 11:33 AM CDT OSMOLALITY, U Routine 07/31/2024 11:33 AM CDT URINALYSIS WITH MICROSCOPIC Routine 07/31/2024 11:33 AM CDT US KIDNEYS BILATERAL WITH BLADDER RAD - Routine (most inpatients and all outpatients) 07/31/2024 11:28 AM CDT MAGNESIUM, S Routine 07/31/2024 7:43 AM CDT BASIC METABOLIC PANEL, S/P Routine 07/31/2024 7:43 AM CDT CBC WITH DIFFERENTIAL, B Routine 07/31/2024 7:43 AM CDT PROTHROMBIN TIME (PT), P Routine 07/31/2024 7:43 AM CDT GLUCOSE POCT, B Routine 07/31/2024 6:11 AM CDT GLUCOSE POCT, B Routine 07/30/2024 9:30 PM CDT ADULT OXYGEN THERAPY Routine 07/30/2024 8:01 PM CDT GLUCOSE POCT, B Routine 07/30/2024 5:00 PM CDT GLUCOSE POCT, B Routine 07/30/2024 12:06 PM CDT NURSING IMAGE EXAM Routine 07/30/2024 9: 46 AM CDT NURSING IMAGE EXAM Routine 07/30/2024 9: 45 AM CDT PROTHROMBIN TIME (PT), P Routine 07/30/2024 8:03 AM CDT BASIC METABOLIC PANEL, S/P Routine 07/30/2024 8:03 AM CDT CBC WITH DIFFERENTIAL, B Routine 07/30/2024 8:03 AM CDT ADULT OXYGEN THERAPY Routine 07/30/2024 8:00 AM CDT GLUCOSE POCT, B Routine 07/30/2024 7:45 AM CDT GLUCOSE POCT, B Routine 07/29/2024 9:32 PM CDT ADULT OXYGEN THERAPY Routine 07/29/2024 8:01 PM CDT GLUCOSE POCT, B Routine 07/29/2024 4:46 PM CDT GLUCOSE POCT, B Routine 07/29/2024 11:30 AM CDT ADULT OXYGEN THERAPY Routine 07/29/2024 8:00 AM CDT GLUCOSE POCT, B Routine 07/29/2024 7:39 AM CDT BASIC METABOLIC PANEL, S/P Routine 07/29/2024 7:38 AM CDT CBC WITH DIFFERENTIAL, B Routine 07/29/2024 7:38 AM CDT MAGNESIUM, S Routine 07/29/2024 7:38 AM CDT PROTHROMBIN TIME (PT), P Routine 07/29/2024 7:38 AM CDT HEMOGLOBIN A1C, B Routine 07/29/2024 7:3 4 AM CDT GLUCOSE POCT, B Routine 07/28/2024 8:23 PM CDT ADULT OXYGEN THERAPY Routine 07/28/2024 8:01 PM CDT GLUCOSE POCT, B Routine 07/28/2024 5:35 PM CDT GLUCOSE POCT, B Routine 07/28/2024 12:00 PM CDT NURSING IMAGE EXAM Routine 07/28/2024 10 :39 AM CDT BASIC METABOLIC PANEL, S/P Routine 07/28/2024 9:57 AM CDT CBC WITH DIFFERENTIAL, B Routine 07/28/2024 9:57 AM CDT MAGNESIUM, S Routine 07/28/2024 9:57 AM CDT PROTHROMBIN TIME (PT), P Routine 07/28/2024 9:56 AM CDT GLUCOSE POCT, B Routine 07/28/2024 8:52 AM CDT ADULT OXYGEN THERAPY Routine 07/28/2024 8:00 AM CDT GLUCOSE POCT, B Routine 07/28/2024 7:57 AM CDT BASIC METABOLIC PANEL, S/P Timed 07/27/2024 11:09 PM CDT GLUCOSE POCT, B Routine 07/27/2024 9:45 PM CDT ADULT OXYGEN THERAPY Routine 07/27/2024 8:00 PM CDT GLUCOSE POCT, B Routine 07/27/2024 4:27 PM CDT CYSTATIN C WITH EGFR Routine 07/27/2024 11:57 AM CDT GLUCOSE POCT, B Routine 07/27/2024 11:13 AM CDT ADULT OXYGEN THERAPY Routine 07/27/2024 8:00 AM CDT MAGNESIUM, S Routine 07/27/2024 7:42 AM CDT BASIC METABOLIC PANEL, S/P Routine 07/27/2024 7:42 AM CDT CBC WITH DIFFERENTIAL, B Routine 07/27/2024 7:42 AM CDT GLUCOSE POCT, B Routine 07/27/2024 7:41 AM CDT PROTHROMBIN TIME (PT), P Routine 07/27/2024 7:41 AM CDT GLUCOSE POCT, B Routine 07/27/2024 6:54 AM CDT ECG Routine 07/27/2024 5:27 AM CDT GLUCOSE POCT, B Routine 07/26/2024 9:07 PM CDT ADULT OXYGEN THERAPY Routine 07/26/2024 8:01 PM CDT GLUCOSE POCT, B Routine 07/26/2024 4:19 PM CDT GLUCOSE POCT, B Routine 07/26/2024 11:06 AM CDT TROPONIN T, 5TH GEN, P Timed 07/26/2024 8:27 AM CDT ADULT OXYGEN THERAPY Routine 07/26/2024 8:01 AM CDT SPSMA RESULT Timed 07/26/2024 7:21 AM CDT FOLATE, S Timed 07/26/2024 7:21 AM CDT VITAMIN B12 ASSAY, S Timed 07/26/2024 7:21 AM CDT RETICULOCYTES, B Timed 07/26/2024 7:21 AM CDT HAPTOGLOBIN, S Timed 07/26/2024 7:21 AM CDT FIBRINOGEN, P Timed 07/26/2024 7:21 AM CDT FERRITIN, S Timed 07/26/2024 7:21 AM CDT IRON AND TOT IRON-BINDING CAPACITY, S/P Timed 07/26/2024 7:21 AM CDT BASIC METABOLIC PANEL, S/P Routine 07/26/2024 7:21 AM CDT CBC WITH DIFFERENTIAL, B Routine 07/26/2024 7:21 AM CDT PROTHROMBIN TIME (PT), P Routine 07/26/2024 7:21 AM CDT GLUCOSE POCT, B Routine 07/26/2024 7:20 AM CDT GLUCOSE POCT, B Routine 07/25/2024 8:34 PM CDT ADULT OXYGEN THERAPY Routine 07/25/2024 8:00 PM CDT TROPONIN T, 6H, 5TH GEN, P Timed 07/25/2024 7:26 PM CDT GLUCOSE POCT, B Routine 07/25/2024 4:25 PM CDT TROPONIN T, 2H/6H REFLEX, 5TH GEN, P Timed 07/25/2024 3:42 PM CDT (TTE) 2D ECHO DOPPLER COLOR Routine 07/25/2024 3:24 PM CDT PROTHROMBIN TIME (PT), P STAT 07/25/2024 2:04 PM CDT C-REACTIVE PROTEIN (CRP), S/P STAT 07/25/2024 1:50 PM CDT TROPONIN T, BASELINE, 5TH GEN, P STAT 07/25/2024 1:50 PM CDT SEDIMENTATION RATE, B STAT 07/25/2024 1:49 PM CDT NURSING IMAGE EXAM Routine 07/25/2024 1: 35 PM CDT ECG STAT 07/25/2024 1:34 PM CDT ADULT OXYGEN THERAPY Routine 07/25/2024 1:28 PM CDT ADULT OXYGEN THERAPY Routine 07/25/2024 1:28 PM CDT ADULT OXYGEN THERAPY Routine 07/25/2024 1:28 PM CDT NURSING IMAGE EXAM Routine 07/25/2024 1: 00 PM CDT BASIC METABOLIC PANEL, S/P Routine 07/25/2024 4:07 AM CDT BASIC METABOLIC PANEL, S/P Timed 07/24/2024 11:51 PM CDT TROPONIN T, 6H, 5TH GEN, P Timed 07/24/2024 11:51 PM CDT TROPONIN T, 2H/6H REFLEX, 5TH GEN, P Timed 07/24/2024 7:28 PM CDT DX CHEST AP OR PA AND LATERAL 2 VIEWS RAD - Semiurgent (Fast; most ED patients; some inpatients) 07/24/2024 6:11 PM CDT PROTHROMBIN TIME (PT), P STAT 07/24/2024 5:20 PM CDT TROPONIN T, BASELINE, 5TH GEN, P STAT 07/24/2024 5:20 PM CDT NT-PRO B-TYPE NATRIURETIC PEPTIDE (BNP), S STAT 07/24/2024 5:20 PM CDT CBC WITH DIFFERENTIAL, B STAT 07/24/2024 5:20 PM CDT BASIC METABOLIC PANEL, S/P STAT 07/24/2024 5:20 PM CDT ECG Routine 07/24/2024 5:08 PM CDT OUTSIDE DX CHEST Routine 06/04/2024 12:4 0 PM CDT LIPID PANEL, S Routine 12/24/2023 9:44 AM LABORATORY TECHNICIAN Stenosis Aortic Valve Acquired COLONOSCOPY Routine 11/21/2022 from Last 3 Months or Most Recently Relevant to Health Maintenance Results * (ABNORMAL) Glucose, POCT (08/01/2024 11:23 AM CDT) Only the most recent of30 resultswithin the time period is included. Glucose, POCT, B 162(H) 70 - 140 mg/dL 08/01/2024 11:25 AM CDT PCLX Site Capillary 08/01/2024 11:25 AM CDT PCLX Last Intake 2-3 hours 08/01/2024 11:25 AM CDT PCLX Blood 08/01/2024 11:2 3 AM CDT 08/01/2024 11:25 AM CDT Unknown Provider LAB POCT ORDERABLES- MANUAL Performing Organization Address [facility] Co de Phone Number POC [facility] [address] PCLX [facility] 200 [place] [address] * (ABNORMAL) Prothrombin Time (PT) (08/01/2024 7:41 AM CDT) Only the most recent of9 resultswithin the time period is included. Prothrombin Time, P 22.1(H) 9.4 - 12.5 sec 08/01/2024 8:45 AM CDT DTL INR 2.0 0.9 - 1.1 08/01/2024 8:45 AM CDT DTL Comment: ----ADDITIONAL INFORMATION---- Standard intensity warfarin therapeutic range: 2.0 to 3.0 ?? High intensity warfarin therapeutic range: 2.5 to 3.5 Blood (Blood, Venous) 08/01/2024 7:41 AM CDT 08/01/2024 8:25 AM CDT Yasmine Garduno M.D., Ph.D. LAB BLOOD ADD -ON Performing Organization Address City/[facility]/ZIP Co de Phone Number [facility] 200 [place] [address], [facility] DTL [facility] 200 [place] [address] * (ABNORMAL) CBC with Differential, Blood (08/01/2024 7:41 AM CDT) Only the most recent of8 resultswithin the time period is included. Hemoglobin 12.1(L) 13.2 - 16.6 g/dL 08/01/2024 8:40 AM CDT DTL Hematocrit 37.9(L) 38.3 - 48.6 % 08/01/2024 8:40 AM CDT DTL Erythrocytes 4.22(L) 4.35 - 5.65 x10(12)/L 08/01/2024 8:40 AM CDT DTL MCV 89.8 78.2 - 97.9 fL 08/01/2024 8:40 AM CDT DTL RBC Distrib Width 14.8(H) 11.8 - 14.5 % 08/01/2024 8:40 AM CDT DTL Platelet Count 133(L) 135 - 317 x10(9)/L 08/01/2024 8:40 AM CDT DTL Leukocytes 8.1 3.4 - 9.6 x10(9)/L 08/01/2024 8:40 AM CDT DTL Neutrophils 6.13 1.56 - 6.45 x10(9)/L 08/01/2024 8:40 AM CDT DHPM Lymphocytes 1.07 0.95 - 3.07 x10(9)/L 08/01/2024 8:40 AM CDT DTL Monocytes 0.85(H) 0.26 - 0.81 x10(9)/L 08/01/2024 8:40 AM CDT DTL Eosinophils 0.03 0.03 - 0.48 x10(9)/L 08/01/2024 8:40 AM CDT DTL Basophils 0.03 0.01 - 0.08 x10(9)/L 08/01/2024 8:40 AM CDT DTL Blood (Blood, Venous) 08/01/2024 7:41 AM CDT 08/01/2024 8:26 AM CDT Deven Clement M.D., M.S. LAB BLOOD ADD -ON [facility] [address] [place] [address], [facility] DTL [facility] [address] [place] [address] [facility] [address] [place] [address] * (ABNORMAL) Renal Function Panel (08/01/2024 7:40 AM CDT) Potassium, S 4.4 3.6 - 5.2 mmol/L 08/01/2024 9:18 AM CDT DTL Sodium, S 137 135 - 145 mmol/L 08/01/2024 9:18 AM CDT DTL Chloride, S 93(L) 98 - 107 mmol/L 08/01/2024 9:18 AM CDT DTL Bicarbonate, S 33(H) 22 - 29 mmol/L 08/01/2024 9:18 AM CDT DTL Anion Gap 11 7 - 15 08/01/2024 9:18 AM CDT DTL BUN (Blood Urea Nitrogen), S 60(H) 8 - 24 mg/dL 08/01/2024 9:18 AM CDT DTL Creatinine 2.93(H) 0.74 - 1.35 mg/dL 08/01/2024 9:18 AM CDT DTL Estimated GFR (eGFR) 22(L) >=60 mL/min/BSA 08/01/2024 9:18 AM CDT DTL Comment: Estimated GFR calculated using the 2020 CKD_EPI creatinine equation. Calcium, Total, S 9.2 8.8 - 10.2 mg/dL 08/01/2024 9:18 AM CDT DTL Glucose, S 132 70 - 140 mg/dL 08/01/2024 9:18 AM CDT DTL Albumin, S 3.8 3.5 - 5.0 g/dL 08/01/2024 9:18 AM CDT DTL Phosphorus (Inorganic), S 4.1 2.5 - 4.5 mg/dL 08/01/2024 9:18 AM CDT DTL Blood (Blood, Venous) 08/01/2024 7:40 AM CDT 08/01/2024 8:48 AM CDT Deven Clement M.D., M.S. LAB BLOOD ADD -ON Performing Organization Address City/[facility]/ZIP Co de Phone Number [facility] [address] [place] [address], [address] [address] * (ABNORMAL) Cystatin C with Estimated GFR (08/01/2024 7:40 AM CDT) Only the most recent of2 resultswithin the time period is included. Pathologist [facility] eGFR by Cystatin C 17(L) >60 mL/min/BSA 08/01/2024 9:08 AM CDT DTL Comment: Estimated GFR calculated [...] lower with the new assay. Cystatin C 3.03(H) 0.67 - 1.21 mg/L 08/01/2024 9:08 AM CDT DTL Blood (Blood, Venous) 08/01/2024 7:40 AM CDT 08/01/2024 8:48 AM CDT Shameka Feldman M.D. LAB BLOOD ADD-ON Performing Organization Address City/[facility]/ZIP Co de Phone Number [facility] [address] [place] [address], [facility] [address] [place] [address] * Dipstick, Urine (07/31/2024 11:33 AM CDT) Pathologist [facility] Hemoglobin, QL, U Negative Negative 07/31/2024 12:54 PM CDT DTL Leukocyte Esterase, U Negative Negative 07/31/2024 12:54 PM CDT DTL Nitrite, U Negative Negative 07/31/2024 12:54 PM CDT DTL Ketone, U Negative Negative mg/dL 07/31/2024 12:54 PM CDT DTL Glucose, U Negative Negative mg/dL 07/31/2024 12:54 PM CDT DTL Urine 07/31/2024 11:3 3 AM CDT 07/31/2024 12:11 PM CDT Chelsea Izaguirre M.D. LAB URINE ORDERAB LES [facility] [address] [place] [address], [facility] [address] [place] [address] * Microscopic Automated (07/31/2024 11:33 AM CDT) Microscopy Normal 07/31/2024 12:54 PM CDT DTL RBC None Seen <3 /hpf 07/31/2024 12:54 PM CDT DTL WBC 1-3 /hpf 07/31/2024 12:54 PM CDT DTL Comment: ----REFERENCE VALUE---- <4 ??(Males) <11 (Females) Casts, Hyaline 4-10 /lpf 07/31/2024 12:54 PM CDT DTL Urine 07/31/2024 11:3 3 AM CDT 07/31/2024 12:11 PM CDT Chelsea Izaguirre M.D. LAB URINE ORDERAB LES [facility] [address] [place] [address], [facility] [address] [place] [address] * pH, Urine (07/31/2024 11:33 AM CDT) pH, U 6.3 4.5 - 8.0 07/31/2024 12: 53 PM CDT DTL Urine 07/31/2024 11:3 3 AM CDT 07/31/2024 12:11 PM CDT Chelsea Izaguirre M.D. LAB URINE ORDERAB LES Performing Organization Address [facility] Co de Phone Number [facility] [address] [place] [address] * Osmolality, Urine (07/31/2024 11:33 AM CDT) Osmolality, U 358 150 - 1150 mOsm/kg 07/31/2024 12:53 PM CDT DTL Urine 07/31/2024 11:3 3 AM CDT 07/31/2024 12:11 PM CDT Chelsea Izaguirre M.D. LAB URINE ORDERAB LES Performing Organization Address [facility] Co de Phone Number [facility] [address] [place], [place] [address] [place] [address] * (ABNORMAL) Urinalysis, with Microscopic: Urine, Midstream (07/31/2024 11:33 AM CDT) Source Urine, Urine, Midstream 07/31/2024 12:11 PM CDT DTL Color, U Yellow 07/31/2024 12:11 PM CDT DTL Clarity, U Clear 07/31/2024 12:11 PM CDT DTL Protein, U 9 <26 mg/dL 07/31/2024 2:30 PM CDT DTL Protein/Osmol ality 0.25 <0.42 ratio 07/31/2024 2:30 PM CDT DTL Predicted 24 HR Protein, U 253(H) <229 mg/24 h 07/31/2024 2:30 PM CDT DTL Predicted Range 80-796 mg/24 h 07/31/2024 2:30 PM CDT DTL Urine (Urine, Midstream) 07/31/2024 11:33 AM CDT 07/31/2024 12:11 PM CDT Deven Clement M.D., M.S. LAB URINE ORD ERABLES [facility] [address] [place] [address], [place] DTL [facility] [address] [place] [address] * US Kidneys Bilateral with Bladder (07/31/2024 11:28 AM CDT) Anatomical Region Laterality Modality Abdomen, Renal, Ultrasound R ST LOS, Ultrasound ARZ LOS, Ultrasound FLA LOS Bilateral Ultrasound Impressions 07/31/2024 2:29 PM CDT 1. ??Normal sonographic appearance of both kidneys without hydronephrosis. 2. ??Moderate volume of perihepatic ascites. Narrative 07/31/2024 2:29 PM CDT EXAM: US KIDNEYS BILATERAL WITH BLADDER COMPARISON: No relevant comparison exams FINDINGS: Right kidney: 10.5 cm. Cortical thickness: Normal. Parenchymal echogenicity: Normal. Collecting system: No hydronephrosis. Masses: None detected. Left kidney: 10.0 cm. Cortical thickness: Normal. Parenchymal echogenicity: Normal. Collecting system: No hydronephrosis. Masses: None detected. Bladder: Normal. Other: Moderate volume of perihepatic ascites. Procedure Note Mundo Rivera M.D. - 07/31/2024 EXAM: US KIDNEYS BILATERAL WITH BLADDER COMPARISON: No relevant comparison exams FINDINGS: Right kidney: 10.5 cm. Cortical thickness: Normal. Parenchymal echogenicity: Normal. Collecting system: No hydronephrosis. Masses: None detected. Left kidney: 10.0 cm. Cortical thickness: Normal. Parenchymal echogenicity: Normal. Collecting system: No hydronephrosis. Masses: None detected. Bladder: Normal. Other: Moderate volume of perihepatic ascites. IMPRESSION: 1. Normal sonographic appearance of both kidneys withouthydronephrosis. 2. Moderate volume of perihepatic ascites. Deven Clement M.D., M.S. IMG US PROCED URES * (ABNORMAL) Magnesium (07/31/2024 7:43 AM CDT) Only the most recent of4 resultswithin the time period is included. Magnesium S 2.5(H) 1.7 - 2.3 mg/dL 07/31/2024 10:14 AM CDT DTL Blood (Blood, Venous) 07/31/2024 7:43 AM CDT 07/31/2024 9:25 AM CDT Deven Clement M.D., M.S. LAB BLOOD ADD -ON [facility] [address] [place] [address], [facility] [address] [place] [address] * (ABNORMAL) Basic Metabolic Panel (07/31/2024 7:43 AM CDT) Only the most recent of10 resultswithin the time period is included. Potassium, S 4.2 3.6 - 5.2 mmol/L 07/31/2024 10:14 AM CDT DTL Sodium, S 140 135 - 145 mmol/L 07/31/2024 10:14 AM CDT DTL Chloride, S 95(L) 98 - 107 mmol/L 07/31/2024 10:14 AM CDT DTL Bicarbonate, S 32(H) 22 - 29 mmol/L 07/31/2024 10:14 AM CDT DTL Anion Gap 13 7 - 15 07/31/2024 10:14 AM CDT DTL BUN (Blood Urea Nitrogen), S 58(H) 8 - 24 mg/dL 07/31/2024 10:14 AM CDT DTL Creatinine 3.06(H) 0.74 - 1.35 mg/dL 07/31/2024 10:14 AM CDT DTL Estimated GFR (eGFR) 21(L) >=60 mL/min/BSA 07/31/2024 10:14 AM CDT DTL Comment: Estimated GFR calculated using the 2020 CKD_EPI creatinine equation. Calcium, Total, S 9.3 8.8 - 10.2 mg/dL 07/31/2024 10:14 AM CDT DTL Glucose, S 93 70 - 140 mg/dL 07/31/2024 10:14 AM CDT DTL Blood (Blood, Venous) 07/31/2024 7:43 AM CDT 07/31/2024 9:25 AM CDT Deven Clement M.D., M.S. LAB BLOOD ADD -ON Performing Organization Address [facility] Co de Phone Number [facility] [address] [place] [address], [facility] [address] [place] [id number] * Leg, left-Nursing Image Exam (07/30/2024 9:46 AM CDT) Only the most recent of5 resultswithin the time period is included. 07/30/2024 9:44 AM CDT Narrative IIMS - 07/30/2024 9:46 AM CDT This order has been created and auto-finalized to support the import of images acquired without order. The clinical documentation to support these images can be found on the encounter that produced images. Provider Not In System IMG NON RAD IMAGI NG PROCEDURES Performing Organization Address [facility] Co de Phone Number IIUT NA * (ABNORMAL) Hemoglobin A1c (07/29/2024 7:34 AM CDT) Hemoglobin A1c, B 7.5(H) 4.0 - 5.6 % 07/29/2024 10:45 AM CDT DTL Comment: Hemoglobin A1c values greater than or equal to 6.5 percent are diagnostic for diabetes mellitus. ??Diagnosis should be confirmed by repeat testing. ??In diabetic patients, HbA1c goals should be discussed with healthcare provider. Blood (Blood, Venous) 07/29/2024 7:34 AM CDT 07/29/2024 10:20 AM CDT Vipul Garcia P.A.-C. LAB BLOOD ADD-O N Performing Organization Address City/[facility] Co de Phone Number [facility] [address] [place] [address], [facility] DTL [facility] [address] [place] [address] * ECG 12 Lead (07/27/2024 5:27 AM CDT) Only the most recent of3 resultswithin the time period is included. Ventricular Rate ECG/Min 66 BPM MUSE [place] Interval 136 ms MUSE QRSD Interval 76 ms MUSE QT Interval 358 ms MUSE QTC Interval 375 ms MUSE P [place] 40 degrees MUSE R [place] 63 degrees MUSE T Wave [place] 122 degrees MUSE 07/27/2024 5:27 AM CDT 07/27/2024 5:33 AM CDT Impressions MUSE - 07/27/2024 5:33 AM CDT Normal sinus rhythm Low voltage QRS in limb leads Low anterior forces Nonspecific T wave abnormality When compared with ECG of 25-Jul-2024 13:34, No significant change was found Reviewed by MARIELA Guerrier Narrative Procedure Note Rosio Roca M.D., Ph.D. - 07/27/2024 IMPRESSION: Normal sinus rhythm Low voltage QRS in limb leads Low anterior forces Nonspecific T wave abnormality When compared with ECG of 25-Jul-2024 13:34, No significant change was found Reviewed by MARIELA Guerrier Yasmine Garduno M.D., Ph.D. ECG ORDERABLE S Performing Organization Address City/[facility]/ZIP Co de Phone Number MUSE NA * (ABNORMAL) Troponin T, 5th Generation (07/26/2024 8:27 AM CDT) Troponin T, 5th gen 110(H) <=15 ng/L 07/26/2024 9:08 AM CDT [facility] Comment:Consider acute myoca rdial injury Blood (Blood, Venous) 07/26/2024 8:27 AM CDT 07/26/2024 8:32 AM CDT Neftaly Gomez M.D. LAB BLOOD ADD-ON [facility] [address] [place] [address], [facility] [address] [place] [address] * (ABNORMAL) Morphology Eval (special smear) (07/26/2024 7:21 AM CDT) Neutrophilic Segs and Bands 85(H) 50 - 75 % 07/26/2024 9:28 AM CDT [facility] Lymphocytes 10(L) 18 - 42 % 07/26/2024 9:28 AM CDT [facility] Monocytes 4 2 - 11 % 07/26/2024 9:28 AM CDT [facility] Basophils 1 0 - 2 % 07/26/2024 9:28 AM CDT [facility] Interpretation See Comment 9:28 AM CDT [facility] Comment: Acanthocytes present, consider liver and/or renal disease and/or nutritional deficiency. Reviewed by: Renetta 07/26/2024 9:28 AM CDT [facility] Blood (Blood, Venous) 07/26/2024 7:21 AM CDT 07/26/2024 7:55 AM CDT Yasmine aGrduno M.D., Ph.D. LAB BLOOD ADD -ON [facility] [address] [place], [place] [id number] [place] [address] 200 [place] [address] * Iron and Total Iron-Binding Capacity (07/26/2024 7:21 AM CDT) Pathologist [facility] Iron 53 50 - 150 mcg/dL 07/26/2024 8:46 AM CDT DTL Total Iron Binding Capacity 270 250 - 400 mcg/dL 07/26/2024 8:46 AM CDT DTL Percent Saturation 20 14 - 50 % 07/26/2024 8:46 AM CDT DTL Blood (Blood, Venous) 07/26/2024 7:21 AM CDT 07/26/2024 8:10 AM CDT Yasmine Garduno M.D., Ph.D. LAB BLOOD ADD -ON [facility] [address] [place] [address], [facility] [address] [place] [address] * Fibrinogen (07/26/2024 7:21 AM CDT) Fibrinogen, P 385 200 - 393 mg/dL 07/26/2024 8:23 AM CDT DTL Blood (Blood, Venous) 07/26/2024 7:21 AM CDT 07/26/2024 7:56 AM CDT Yasmine Garduno M.D., Ph.D. LAB BLOOD ADD -ON Performing Organization Address [facility] Co de Phone Number [facility] [address] [place], [place] [address] [address] [place] [address] * Reticulocytes (07/26/2024 7:21 AM CDT) Pathologist [facility] Reticulocytes, B 1.46 0.60 - 2.71 % 07/26/2024 8:09 AM CDT DTL Absolute Reticulocyte 62.8 30.4 - 110.9 x10(9)/L 07/26/2024 8:09 AM CDT DT Blood (Blood, Venous) 07/26/2024 7:21 AM CDT 07/26/2024 7:55 AM CDT Yasmine Garduno M.D., Ph.D. LAB BLOOD ADD -ON Performing Organization Address City/[facility] Co de Phone Number [facility] [address] [place] [address], [facility] [address] [place] [address] * (ABNORMAL) Haptoglobin (07/26/2024 7:21 AM CDT) Haptoglobin, S <14(L) 30 - 200 mg/dL 07/29/2024 8:13 AM CDT SDS Blood (Blood, Venous) 07/26/2024 7:21 AM CDT 07/28/2024 6:34 AM CDT Yasmine Garduno M.D., Ph.D. LAB BLOOD ADD -ON [facility] [address] [place] [address] [facility] [address] [place] [address] * Folate (07/26/2024 7:21 AM CDT) Folate, S 11.6 >=4.0 mcg/L 07/28/2024 8: 00 AM CDT DTL Blood (Blood, Venous) 07/26/2024 7:21 AM CDT 07/26/2024 8:10 AM CDT Yasmine Garduno M.D., Ph.D. LAB BLOOD ADD -ON Performing Organization Address City/[facility]/ZIP Co de Phone Number [facility] [address] [place] [address], [facility] [address] [place] [address] * Ferritin (07/26/2024 7:21 AM CDT) Ferritin, S 179 31 - 409 mcg/L 07/26/2024 8:46 AM CDT DTL Blood (Blood, Venous) 07/26/2024 7:21 AM CDT 07/26/2024 8:10 AM CDT Yasmine Garduno M.D., Ph.D. LAB BLOOD ADD -ON [facility] [address] [place] [address], [facility] [address] [place] [address] * (ABNORMAL) Vitamin B12 Assay (07/26/2024 7:21 AM CDT) Pathologist [facility] Vitamin B12 Assay, S 1206(H) 180 - 914 ng/L 07/28/2024 8:01 AM CDT DT Comment: ----ADDITIONAL INFORMATION---- In patients being evaluated for vitamin B12 deficiency who have intrinsic factor blocking antibodies (IFBA), false elevations of B12 may occur due to IFBA interference thus potentially obscuring a physiological deficiency of B12. If observed B12 concentrations are discordant with clinical presentation, measurement of methylmalonic acid (MMA) should be considered. Blood (Blood, Venous) 07/26/2024 7:21 AM CDT 07/26/2024 8:10 AM CDT Yasmine Garduno M.D., Ph.D. LAB BLOOD ADD -ON Performing Organization Address City/[facility]/ZIP Co de Phone Number [facility] [address] [place] [address], [facility] [address] [address] * (ABNORMAL) Troponin T, 6h, 5th Gen (07/25/2024 7:26 PM CDT) Only the most recent of2 resultswithin the time period is included. Pathologist [facility] Troponin T, 6 hr, 5th gen 106(H) <=15 ng/L 07/25/2024 8:07 PM CDT [facility] Comment:Consider acute myoca rdial injury 6H Delta % SEE COMMENT % 07/25/2024 8:07 PM CDT [facility] Comment:Test cancelled. Spec imen not received within delta timeframe. 6H Delta Interp SEE COMMENT 07/25/20 24 8:07 PM CDT [facility] Comment:Test cancelled. Spec imen not received within delta timeframe. Blood 07/25/2024 7:26 PM CDT 07/25/2024 7:33 PM CDT Barbara Jay, B.Ch. LAB BLOO D TROPONIN Performing Organization Address City/[facility]/ZIP Co de Phone Number [facility] [address] [place] [address] * (ABNORMAL) Troponin T, 2 Hour with 6 Hour Reflex, 5th Gen (07/25/2024 3:42 PM CDT) Only the most recent of2 resultswithin the time period is included. Troponin T, 2 hr, 5th gen 131(H) <=15 ng/L 07/25/2024 4:11 PM CDT [facility] Comment:Consider acute myoca rdial injury 2H Delta % 9 % 07/25/2024 4:11 PM CDT [facility] Comment:6 hour collection pe nding. 2H Delta Interp Not Changing 07/25/2024 4:11 PM CDT [facility] Blood 07/25/2024 3:42 PM CDT 07/25/2024 3:47 PM CDT Barbara Jay, B.Ch. LAB BLOO D TROPONIN [facility] [address] [place] [address] * (TTE) 2D ECHO DOPPLER COLOR (07/25/2024 3:24 PM CDT) [facility] Ejection Fraction 65 MC CV EIMS LV Mass Index 43 MC CV EIMS LV End-Diastolic Diameter 37 MC CV EIMS LV End-Systolic Diameter 22 MC CV EIMS MV E Velocity 1.3 MC CV EIMS MV A Velocity 0.4 MC CV EIMS MV E/A 3.25 MC CV EIMS MV e' Velocity Medial 0.07 MC CV EIMS MV e' Velocity Lateral 0.07 MC CV EIMS MV E/e' Medial 18.6 MC CV EIMS MV E/e' Lateral 18.6 MC CV EIMS Left ventricular stroke volume index 39 MC CV EIMS Cardiac Output 5.56 MC CV EIMS Cardiac Index 2.71 MC CV EIMS LV Interventricular Septal Wall Thickness 8 MC CV EIMS LV Posterior Wall Thickness 9 MC CV EIMS LV Relative Wall Thickness 49 MC CV EIMS AV mean gradient 3 MC CV EIMS Aortic valve area 3.43 MC CV EIMS Aortic Valve Area Index 1.67 MC CV EIMS Aortic Valve Dimensionless Index 0.83 MC CV EIMS Aortic Valve Systolic Peak Velocity 1.2 MC CV EIMS Anatomical Region Laterality Modality Echocardiography 07/25/2024 1:51 PM CDT Impressions 07/25/2024 4:22 PM CDT 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 2. Status post 23 mm On-X mechanical aortic valve prosthesis, CABG x1, PVI, and DAHIANA amputation (19-SEP-2023, [place]). 3. Small left ventricular chamber size. Abnormal ventricular septal motion (post-operative) without other regional wall motion abnormalities. Calculated left ventricular ejection fraction 65%. 4. Left ventricular cardiac index 2.71 l/min/m2. 5. Elevated left ventricular filling pressure. 6. Normal right ventricular chamber size with mildly reduced systolic function. 7. Unable to estimate right ventricular systolic pressure due to an inadequate Doppler regurgitation signal. 8. Status post 23 mm On-X mechanical aortic valve prosthesis (19-SEP-2023). Aortic valve prosthesis systolic mean gradient 3 mmHg. Dimensionless index 0.83. Normal washing jets without other prosthetic valve regurgitation. No periprosthetic regurgitation. 9. Enlarged inferior vena cava size with reduced inspiratory collapse (<50%). 10. No ??pericardial effusion. 11. Large left pleural effusion. 12. Compared to the report of 12/24/2023 the following changes have occurred: the current study's findings are consistent with mixed constrictive-restrictive physiology, see comments. ??Side by side comparison of images performed. Comments The following signs are supportive of constrictive-restrictive physiology: 1. The inferior vena cava is enlarged and exhibits reduced respiratory collapse. Diastolic flow reversals in the hepatic veins are intermittently more prominent with expiration, while there is minimal variation in superior vena cava flow. 2. There is a respirophasic shift of the ventricular septum. 3. Both medial and lateral e' velocities are equal, and the mitral inflow Doppler pattern indicates significantly elevated left ventricular filling pressures. Importantly, the medial e' velocities are significantly lower in today's study compared to the previous one from 12/24/2023. 4. There is minimal respirophasic variability in the mitral inflow, but significant respirophasic variability is noted in the tricuspid inflow (50%). 5. The mid-lateral and apical left ventricular tate appear to be tethered, while the basal lateral wall seems freely mobile. The distal and apical right ventricular tate also show signs of tethering. 6. A large pleural effusion is present. GT Findings Status post 23 mm On-X mechanical aortic valve prosthesis, CABG x1, PVI, and DAHIANA amputation (19-SEP-2023, [place]). Echocardiogram performed per left ventricular function protocol + assessment for constrictive pericarditis Last full echocardiogram performed 08/17/2023. LEFT VENTRICLE:Small left ventricular chamber size. Calculated 2-D linear left ventricular ejection fraction 65%. Left ventricular cardiac index 2.71 l/min/m2. Left ventricular stroke volume index 39 ml/m2. Abnormal ventricular septal motion - post-operative ??without other regional wall motion abnormalities. Elevated left ventricular filling pressure. RIGHT VENTRICLE:Normal right ventricular chamber size. Mildly reduced right ventricular systolic function. Unable to estimate right ventricular systolic pressure due to an inadequate Doppler regurgitation signal. ATRIA:Enlarged left atrial size by visual estimate. Normal right atrial size by visual estimate. CARDIAC VALVES:Status post 23 mm On-X mechanical aortic valve prosthesis. Normal aortic valve mechanical prosthesis. Aortic valve prosthesis systolic mean Doppler gradient 3 mmHg. Aortic valve prosthetic orifice area by Doppler: 3.43 cm2 Trivial (normal washing jets) aortic valve prosthetic regurgitation. No aortic valve periprosthetic regurgitation. Thickened mitral valve. Mild mitral valve regurgitation. Normal tricuspid valve. Trivial tricuspid valve regurgitation. OTHER ECHO FINDINGS:Enlarged inferior vena cava size with reduced inspiratory collapse (<50%). No intracardiac mass or thrombus, but the left atrial appendage cannot be visualized adequately with transthoracic echo to exclude thrombus in this location. No ??pericardial effusion. Large left pleural effusion. For the complete report, see the Order-Level Documents. Narrative 07/25/2024 4:22 PM CDT For the complete report, see the Order-Level Documents. Hemodynamics Heart Rate: 72 BPM Blood Pressure: 128 / 75 mmHg ECG: Sinus rhythm Final Impressions 1. Procedure Note Anthony Valdez M.D., Ph.D. - 07/25/2024 For the complete report, see the Order-Level Documents. Hemodynamics Heart Rate: 72 BPM Blood Pressure: 128 / 75 mmHg ECG: Sinus rhythm Final Impressions 1. Findings consistent with mixed constrictive pericardial disease andrestrictive cardiomyopathy (see comments). 2. Status post 23 mm On-X mechanical aortic valve prosthesis, CABG x1,PVI, and DAHIANA amputation (19-SEP-2023, [place]). 3. Small left ventricular chamber size. Abnormal ventricular septal motion(post-operative) without other regional wall motion abnormalities.Calculated left ventricular ejection fraction 65%. 4. Left ventricular cardiac index 2.71 l/min/m2. 5. Elevated left ventricular filling pressure. 6. Normal right ventricular chamber size with mildly reduced systolicfunction. 7. Unable to estimate right ventricular systolic pressure due to aninadequate Doppler regurgitation signal. 8. Status post 23 mm On-X mechanical aortic valve prosthesis(19-SEP-2023). Aortic valve prosthesis systolic mean gradient 3 mmHg.Dimensionless index 0.83. Normal washing jets without other prostheticvalve regurgitation. No periprosthetic regurgitation. 9. Enlarged inferior vena cava size with reduced inspiratory collapse(<50%). 10. No pericardial effusion. 11. Large left pleural effusion. 12. Compared to the report of 12/24/2023 the following changes haveoccurred: the current study's findings are consistent with mixedconstrictive-restrictive physiology, see comments. Side by sidecomparison of images performed. Comments The following signs are supportive of constrictive-restrictivephysiology: 1. The inferior vena cava is enlarged and exhibits reduced respiratorycollapse. Diastolic flow reversals in the hepatic veins are intermittentlymore prominent with expiration, while there is minimal variation insuperior vena cava flow. 2. There is a respirophasic shift of the ventricular septum. 3. Both medial and lateral e' velocities are equal, and the mitral inflowDoppler pattern indicates significantly elevated left ventricular fillingpressures. Importantly, the medial e' velocities are significantly lowerin today's study compared to the previous one from 12/24/2023. 4. There is minimal respirophasic variability in the mitral inflow, butsignificant respirophasic variability is noted in the tricuspid inflow(50%). 5. The mid-lateral and apical left ventricular tate appear to betethered, while the basal lateral wall seems freely mobile. The distal andapical right ventricular tate also show signs of tethering. 6. A large pleural effusion is present. GT Findings Status post 23 mm On-X mechanical aortic valve prosthesis, CABG x1, PVI,and DAHIANA amputation (19-SEP-2023, [place]). Echocardiogram performed per leftventricular function protocol + assessment for constrictive pericarditisLast full echocardiogram performed 08/17/2023. LEFT VENTRICLE:Small left ventricular chamber size. Calculated 2-D linearleft ventricular ejection fraction 65%. Left ventricular cardiac index2.71 l/min/m2. Left ventricular stroke volume index 39 ml/m2. Abnormalventricular septal motion - post-operative without other regional wallmotion abnormalities. Elevated left ventricular filling pressure. RIGHT VENTRICLE:Normal right ventricular chamber size. Mildly reducedright ventricular systolic function. Unable to estimate right ventricularsystolic pressure due to an inadequate Doppler regurgitation signal. ATRIA:Enlarged left atrial size by visual estimate. Normal right atrialsize by visual estimate. CARDIAC VALVES:Status post 23 mm On-X mechanical aortic valve prosthesis.Normal aortic valve mechanical prosthesis. Aortic valve prosthesissystolic mean Doppler gradient 3 mmHg. Aortic valve prosthetic orificearea by Doppler: 3.43 cm2 Trivial (normal washing jets) aortic valveprosthetic regurgitation. No aortic valve periprosthetic regurgitation.Thickened mitral valve. Mild mitral valve regurgitation. Normal tricuspidvalve. Trivial tricuspid valve regurgitation. OTHER ECHO FINDINGS:Enlarged inferior vena cava size with reducedinspiratory collapse (<50%). No intracardiac mass or thrombus, but theleft atrial appendage cannot be visualized adequately with transthoracicecho to exclude thrombus in this location. No pericardial effusion. Largeleft pleural effusion. For the complete report, see the Order-Level Documents. Yasmine Garduno M.D., Ph.D. CV ECHO PROCE DURES * (ABNORMAL) Troponin T, Baseline with 2 Hour/6 Hour Reflex Biomarker Panel (07/25/2024 1:50 PM CDT) Only the most recent of2 resultswithin the time period is included. Troponin T, Baseline, 5th gen 120(H) <=15 ng/L 07/25/2024 2:22 PM CDT STMA Comment:Consider acute myoca rdial injury Blood (Blood, Venous) 07/25/2024 1:50 PM CDT 07/25/2024 2:05 PM CDT Neftaly Gomez M.D. LAB BLOOD TROPONIN [facility] [address] [place], [place] [address] STMA [facility] [address] [place] [address] * (ABNORMAL) CRP (C-Reactive Protein) (07/25/2024 1:50 PM CDT) C-Reactive Protein (CRP), S 6.1(H) <5.0 mg/L 07/25/2024 3:06 PM CDT DTL Blood (Blood, Venous) 07/25/2024 1:50 PM CDT 07/25/2024 2:44 PM CDT Neftaly Gomez M.D. LAB BLOOD ADD-ON Performing Organization Address City/[facility]/ZIP Co de Phone Number [facility] [address] [place], [place] [address] [address] [place] [address] * Sedimentation Rate (07/25/2024 1:49 PM CDT) Sedimentation Rate, B 13 3 - 28 mm/h 07/25/2024 4:17 PM CDT DTL Blood (Blood, Venous) 07/25/2024 1:49 PM CDT 07/25/2024 2:36 PM CDT Neftaly Gomez M.D. LAB BLOOD ADD-ON [facility] [address] [place], [place] [id number] [place] [address] [facility] [address] [place] [address] * DX Chest AP or PA and Lateral 2 Views (07/24/2024 6:11 PM CDT) Anatomical Region Laterality Modality Chest, Thoracic RST LOS, Tho racic ARZ LOS, Thoracic FLA LOS N/A Digital Radiography Impressions 07/24/2024 6:25 PM CDT No significant change since the outside radiograph dated 06/04/2024. Small- moderate left and trace right pleural effusions with compressive atelectasis in the left lung base. No discernible pneumothorax. No new focal consolidation. Stable prominent cardiac silhouette. Azygos fissure. Sternotomy. Mediastinal surgical clips. Aortic calcifications. Loop recorder. Cardiac valve prosthesis. Hypertrophic degenerative changes of the spine. Narrative 07/24/2024 6:25 PM CDT EXAM: ??DX CHEST AP OR PA AND LATERAL 2 VIEWS Procedure Note Lenny Almeida M.D. - 07/24/2024 EXAM: DX CHEST AP OR PA AND LATERAL 2 VIEWS IMPRESSION: No significant change since the outside radiograph dated 06/04/2024.Small- moderate left and trace right pleural effusions with compressiveatelectasis in the left lung base. No discernible pneumothorax. No newfocal consolidation. Stable prominent cardiac silhouette. Azygos fissure. Sternotomy. Mediastinalsurgical clips. Aortic calcifications. Loop recorder. Cardiac valveprosthesis. Hypertrophic degenerative changes of the spine. Fanny Goodwin M.D., M.S. IMG DIAGNOST IC IMAGING PROCEDURES * (ABNORMAL) NT-Pro B-Type Natriuretic Peptide (BNP) (07/24/2024 5:20 PM CDT) NT-Pro BNP 4826(H) <=540 pg/mL 07/24/2024 5:55 PM CDT [facility] Comment: NT-proBNP values less than 300 pg/mL [...] absence of renal failure. Blood (Blood, Venous) 07/24/2024 5:20 PM CDT 07/24/2024 5:30 PM CDT Fanny Goodwin M.D., M.S. LAB BLOOD AD D-ON Performing Organization Address [facility] de Phone Number [facility] [address] [place] [address], [facility] [address] [place] [address] * XR chest 2V-Outside Chest Xray (06/04/2024 [...] DIAGNOSTIC IM AGING PROCEDURES Performing Organization Address [facility] de Phone Number IIUT NA * Lipid Panel (12/24/2023 9:44 AM LABORATORY TECHNICIAN) Triglycerides 68 mg/dL 12/24/2023 1:00 PM LABORATORY TECHNICIAN DTL Comment: ----REFERENCE VALUE---- Normal: <150 mg/dL Borderline High: 150-199 mg/dL High: 200-499 mg/dL Very High: > or =500 mg/dL Cholesterol, Total 107 mg/dL 2023 1:00 PM LABORATORY TECHNICIAN DTL Comment: ----REFERENCE VALUE---- Desirable: < 200 mg/dL Borderline High: 200 - 239 mg/dL High: > or = 240 mg/dL Cholesterol, LDL, Calculated 50 mg/dL 12/24/2023 1:00 PM LABORATORY TECHNICIAN DTL Comment: ----REFERENCE VALUE---- Desirable: <100 mg/dL Above Desirable: 100-129 mg/dL Borderline High: 130-159 mg/dL High: 160-189 mg/dL Very High: >=190 mg/dL ----ADDITIONAL INFORMATION---- LDL cholesterol calculated using the Iglesias/NIH equation. Cholesterol, HDL, S 42 >=40 mg/dL 12/24/2023 1:00 PM LABORATORY TECHNICIAN DTL Cholesterol, Non-HDL, Calculated 65 mg/dL 12/24/2023 1:00 PM LABORATORY TECHNICIAN DTL Comment: ----REFERENCE VALUE---- Desirable: <130 mg/dL Above Desirable: 130-159 mg/dL Borderline High: 160-189 mg/dL High: 190-219 mg/dL Very High: > or =220 mg/dL Fasting (8 HR or more) yes 12/24/2023 10:18 AM LABORATORY TECHNICIAN DTL Blood (Blood, Venous) 12/24/2023 9:44 AM LABORATORY TECHNICIAN 12/24/2023 10:18 AM LABORATORY TECHNICIAN Gudelia Soto M.D. LAB BLOOD ADD-ON [facility] [address] [place] [address], [facility] [address] [place] [address] * Colonoscopy (11/21/2022) EXT Colonoscopy Normal - See Scanned Report for Details Normal - See Scanned Report for Details, HIMS - Report Received and Scanned Historical Provider GI PROCEDURE ORDERAB LES from Last 3 Months or Most Recently Relevant to Health Maintenance Advance Directives For more information, please contact: [phone] * Full Code (Latest Code Status on File) Date Activated Date Inactivated Comments 07/25/2024 1:28 PM 08/01/2024 4:19 PM Question Answer Comments Full Code: Discussed * Full Code Date Activated Date Inactivated Comments 09/19/2023 5:07 PM 09/26/2023 6:40 PM Question Answer Comments Full Code: Discussed * Full Code Date Activated Date Inactivated Comments 09/19/2023 7:02 AM 09/19/2023 5:07 PM Question Answer Comments Full Code: Discussed * Full Code Date Activated Date Inactivated Comments 08/19/2023 9:58 PM 08/22/2023 2:12 PM Question Answer Comments Full Code: Discussed Care Teams Mail Deliverer Relationship Specialty Start Date End Date Elsewhere, Pcp PCP - General Internal Medicine 07/28/24
--- OUTSIDE RECORDS SUMMARY | 2024-08-04 13:51 | XMS_ITS ---
Author Organization [facility] Address [address] [place] [address] Care Team Providers Care Technical Assistance Consultant Name Role Phone Unavailable Unavailable Unavailable Surgery Details Not on file Complications Check Surgery Details section. Procedure Estimated Blood Loss Check Surgery Details section. Procedure Findings Check Surgery Details section. Procedure Specimens Taken Check Surgery Details section.
--- OUTSIDE RECORDS SUMMARY | 2024-08-04 13:51 | XMS_ITS | Encounter Summary ---
Author Organization [facility] Address [address] [place] [address] Care Team Providers Care Spring Layer Name Role Phone Elsewhere, Pcp Primary Care Provider Unavailabl e Reason for Visit * Reason Onset Date Comments Communication 08/04/2024 Encounter Details Date Type Department Care Team (Latest Contact Info) Description 08/04/2024 Clinical Communication Division of Endocrinology in [place], [place] [address] [place] [phone] Emerson Goddard, R.N. Communication Social History Tobacco Use Types Packs/Day Years Used Date Smoking Tobacco: Never Smokeless Tobacco: Never Comments:Smoked recreational ly over 40 years ago - a few cigarettes once in a while. Alcohol Use Standard Drinks/Week Comments Never 0 (1 standard drink = 0.6 oz pur e alcohol) [facility] Utilities Answer Date Recorded In the past 12 months has [facility] [employer], gas, oil, or water [employer] threatened to shut off services in your [...] Date Recorded Dental: Regular Dentist No 08/29/20 23 Employment Answer Date Recorded Employment status Retired 08/29/2023 Housing Stability Answer Date Recorded What is your living situation today? I have a [facility] place to live 07/25/2024 Sex and Gender Information Value Date Recorded Sex Assigned at Male 08/29/2023 11:06 AM CDT Gender Identity Male 08/29/2023 11:06 AM CDT Sexual Orientation Straight 08/29/2023 11 :06 AM CDT documented as of this encounter Miscellaneous Notes * Telephone Encounter - Emerson Goddard R.N. - 08/04/2024 7:53 AM CDT INFORMATION DISCUSSED Phone call from pt for blood sugar review and insulin dose adjustment. Reviewed blood sugars from the past day. Blood sugars yesterday were 160-*-273-* and this am is 156. Pt is on Prednisone 20mg QD. PLAN Disposition/Recommendation: Reviewed blood sugars and insulin doses with Erica Garcia PA-C of the [facility] who recommended NPH 25-0-10-0. Reviewed Hypoglycemia. Pt to call back tomorrow am for further insulin dose adjustment. Education: patient/caller able to teach back Caller agreeable to plan of care: yes The following references were used: nursing clinical judgement and Provider Erica Garcia PA-C documented in this encounter Plan of Treatment Upcoming Encounters Date Type Department Care Team (Latest Contact Info) Description 09/29/2024 1:00 PM [employer] [employer] Clinical Communication Virtual Review in [address] [phone] 10/02/2024 10:00 AM [employer] Ancillary Procedure Department of Cardiovascular Medicine in [address] [phone] Deven Clement M.D., M.S. [address] [place] [phone] 10/02/2024 10:45 AM [employer] Appointment Department of Radiology, [facility] in [address] [phone] Deven Clement M.D., M.S. [address] [place] [phone] 10/02/2024 11:20 AM [employer] Appointment Department of Laboratory Medicine and Pathology, [facility] in [address] [phone] Deven Clement M.D., M.S. [address] [place] [phone] 10/02/2024 12:45 PM [employer] Appointment Department of Radiology, [facility], in [place], [place] [address] [place] [phone] Tweet, Deven Guerrero M.D., M.S. [address] [place] [phone] 10/02/2024 2:00 PM [employer] Comprehensive Visit Department of Cardiovascular Medicine in [place], [place] [address] [place] [phone] Keagan Tellez M.D. [address] [place] [phone] documented as of this encounter Visit Diagnoses Not on filedocumented in this encounter Additional Health Concerns Assessment Noted Time PHQ-9 Depression Total Score: 1 09/10/20 23 2:06 PM CDT documented as of this encounter Care Teams Spring Layer Relationship Specialty Start Date End Date Elsewhere, Pcp PCP - General Internal Medicine 07/28/24 documented as of this encounter
--- OUTSIDE RECORDS SUMMARY | 2024-08-04 13:51 | XMS_ITS | Referral Summary ---
Author Organization [facility] Address [address] [place] [address] Care Team Providers Care Garden Labourer Name Role Phone Elsewhere, Pcp Primary Care Provider Unavailabl e Source Comments Patient records contain information from all sites at [facility]. For routine questions regarding patient records, call [phone] during business hours, M-F 8:00 AM - 5:00 PM Central Time. Record requests for emergency care only can be directed to [phone] at any time.[facility] Encounters Date Type Department Care Team Description 08/04/2024 Clinical Communication Division of Endocrinology in [place], [place] [address] [place] [phone] Emerson Goddard, R.N. Communication 07/24/2024 4:49 PM CDT - 08/01/2024 2:08 PM CDT Hospital Encounter [facility], [facility], [facility], Fourth Floor [address] [place] [phone] Fanny Goodwin M.D., M.S. Haily Campbell APRN, C.N.P., D.N.P. Josee Devlin P.A.-C., M.S. Yasmine Garduno M.D., Ph.D. Deven Clement M.D., M.S. Shameka Fedlman M.D. Fanny Zelaya M.D. Edema Leg (Primary Dx); Shortness Of Breath; Effusion Pleural; Diabetes Mellitus Type 2 (HCC); Prosthesis Aortic Valve Discharge Disposition: Home or Self Care 07/30/2024 9:50 AM CDT Ancillary Procedure Department of Nursing 07/30/2024 9:45 AM CDT Ancillary Procedure Department of Nursing 07/30/2024 Clinical Communication [facility] [address] [place] [phone] Barbara Valencia M.B., B.Ch. 07/28/2024 10:40 AM CDT Ancillary Procedure Department of Nursing 07/25/2024 1:35 PM CDT Ancillary Procedure Department of Nursing 07/25/2024 1:00 PM CDT Ancillary Procedure Department of Nursing 06/11/2024 1:30 PM CDT External Outreach Division of Nephrology and Hypertension in [place], [place] [address] [place] [phone] Atif Nance Jr., D.O. 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 3 Active atorvastatin (LIPITOR) 80 mg tablet Take 1 tablet (80 mg total) by mouth at bedtime. 3 Active finasteride (PROSCAR) 5 mg tablet Take [...] total) by mouth daily. 30 tablet 4 024 Active sulfamethoxazo le-trimethopri m (Bactrim) 400-80 [...] Edema Leg 07/25/2024 Hyperparathyroidism Renal Secondary 06/11/2024 Prison (Current) Anticoagulant Treatment 09/13 Bypass Coronary Artery Graft Status Post 023 Cardiac Surgery Status Post 09/24/2023 Effusion Pleural 09/24/2023 Device Cardiac Status Post 09/23/2023 Overview (09/23/2023): Previously placed loop recorder Therapy Prison Antiplatelet [...] drink = 0.6 oz pur e alcohol) [facility] Utilities Answer Date Recorded In the past 12 months has th e electric, gas, oil, or water company threatened to shut off services in your [...] [facility] 07/25/2024 Sex and [...] (Latest Contact Info) Description 09/29/2024 1:00 PM ASSISTANT Clinical Communication Virtual Review in [place], [place] [address] [place] [phone] 10/02/2024 10:00 AM ASSISTANT Ancillary Procedure Department of Cardiovascular Medicine in [place], [place] [address] [place] [phone] Cornelet, Deven Guerrero M.D., M.S. [address] [place] [phone] 10/02/2024 10:45 AM ASSISTANT Appointment Department of Radiology, [facility] in [place], [place] [address] [place] [address] Deven Clement M.D., M.S. [address] [place] [phone] 10/02/2024 11:20 AM ASSISTANT Appointment Department of Laboratory Medicine and Pathology, [place], [place] [address] [place] [address] Deven Clement M.D., M.S. [address] [place] [phone] 10/02/2024 12:45 PM ASSISTANT Appointment Department of Radiology, [facility] in [place], [place] [address] [place] [address] Deven Clement M.D., M.S. [address] [place] [phone] 10/02/2024 2:00 PM ASSISTANT Comprehensive Visit Department of Cardiovascular Medicine in [place], [place] [address] [place] [address] Keagan Tellez M.D. [address] [place] [phone] Medical Devices Implanted Type Area Front Office Assistant Device Identifier Shelf Expiration Date Model / Serial / Lot Vlv Aort Cnf [facility] 23 - [id number] - [id number] Implanted:Qty: 1 on 09/19/2023 by Sarah Miller M.D., M.P.H. at [facility] Cardiac Valve Prosthesis N/A: Aortic Valve Artivion (Prev. CryoLife) 2028 ONCE-2 [id number] / Description:MRI conditional up to 3T, normal mode, per motor polarizer. [email or web address] _[email or web address] AFK Clp Hrzn Ti 24 Clp Akihl - [id number] Implanted:Qty: 1 on 09/19/2023 by Sarah Miller M.D., M.P.H. at [facility] Hardware e.g. pins/screws/r ods N/A: Chest [employer] [id number] 04/29/2028 [id number] / / [id number] Clp Hrzn Ti 6 Clp Akhil - [id number] Implanted:Qty: 1 on 09/19/2023 by Sarah Miller M.D., M.P.H. at [facility] Hardware e.g. pins/screws/r ods N/A: Chest [employer] [id number] / / Clp Hrzn Ti 24 Clp Sm Red - [id number] Implanted:Qty: 1 on 09/19/2023 by Sarah Miller M.D., M.P.H. at [facility] Hardware e.g. pins/screws/r ods N/A: Chest [employer] [id number] / / Clp Hrzn Ti 24 Clp Sm Red - [id number] Implanted:Qty: 1 on 09/19/2023 by Sarah Miller M.D., M.P.H. at [facility] Hardware e.g. pins/screws/r ods N/A: Chest [employer] [id number] / / [place] [facility] Tfln 1x6 - [id number] Implanted:Qty: 1 on 09/19/2023 by Sarah Miller M.D., M.P.H. at [facility] Hardware e.g. pins/screws/r ods N/A: [employer] [id number] / / Medtronic Linq-05/05/2019 Implanted:04/13 by Chet Badillo M.D., Ph.D. (Quantity not on file) Implantable Loop Recorder Chest Medtronic [id number] / [id number] / Description:MR Conditional 1 .5T and [...] LIPID PANEL, S Routine 12/24/2023 9:44 AM ASSISTANT Stenosis Aortic Valve Acquired COLONOSCOPY Routine 11/21/2022 [...] Unknown Provider LAB POCT ORDERABLES- MANUAL POC [facility] [address] [place] [address], [facility] PCLX [facility] POC [address] [place] [address] * (ABNORMAL) Prothrombin Time (PT) (08/01/2024 7:41 [...] Garduno M.D., Ph.D. LAB BLOOD ADD -ON [facility] [address] [place] [address], [facility] DTL [facility] [address] [place] [address] * (ABNORMAL) CBC with Differential, Blood (08/01/2024 [...] Clement M.D., M.S. LAB BLOOD ADD -ON [facility] [address] [place] [address], [facility] DTL [facility] [address] [place] [address] [facility] [address] [place] [address] * (ABNORMAL) Renal Function Panel (08/01/2024 7:40 AM CDT) Pathologist [facility] Potassium, S 4.4 3.6 - 5.2 mmol/L [...] Clement M.D., M.S. LAB BLOOD ADD -ON [facility] [address] [place] [address], [facility] [place] [address] [place] [address] * (ABNORMAL) Cystatin C with Estimated GFR (08/01/2024 7:40 AM CDT) Only the most recent of2 resultswithin the time period is included. eGFR by Cystatin C 17(L) >60 mL/min/BSA [...] CDT Shameka Feldman M.D. LAB BLOOD ADD-ON [address] [address], [address] [address] * Dipstick, Urine (07/31/2024 11:33 AM CDT) Pathologist [facility] Hemoglobin, QL, U Negative Negative 07/31/2024 12:54 [...] Chelsea Izaguirre M.D. LAB URINE ORDERAB LES [facility] [address] [place], [place] [phone] [place] [address] 200 [place] [address] * Microscopic Automated (07/31/2024 11:33 AM CDT) [...] LAB URINE ORDERAB LES Performing Organization Address City/[facility]/ZIP Co de Phone Number [facility] [address] [place], [place] [phone] [place] [address] 200 [place] [address] * pH, Urine (07/31/2024 11:33 AM CDT) pH, U 6.3 4.5 - 8.0 07/31/2024 12: 53 PM CDT DTL Urine 07/31/2024 11:3 3 AM CDT 07/31/2024 12:11 PM CDT Chelsea Izaguirre M.D. LAB URINE ORDERAB LES [facility] [address] [place], [place] [phone] [place] [address] [address] [place] [address] * Osmolality, Urine (07/31/2024 11:33 AM CDT) Osmolality, U 358 150 - 1150 mOsm/kg 07/31/2024 12:53 PM CDT DTL Urine 07/31/2024 11:3 3 AM CDT 07/31/2024 12:11 PM CDT Chelsea Izaguirre M.D. LAB URINE ORDERAB LES Performing Organization Address City/[facility] Co de Phone Number [facility] [address] [place] [address], [facility] DTL [facility] [address] [place] [address] * (ABNORMAL) Urinalysis, with Microscopic: Urine, Midstream [...] Clement M.D., M.S. LAB URINE ORD ERABLES Performing Organization Address [facility]/ZIP Co de Phone Number [facility] [address] [place] [address], [facility] DTL [facility] [address] [place] [address] * US Kidneys Bilateral with Bladder (07/31/2024 [...] of4 resultswithin the time period is included. Magnesium, S 2.5(H) 1.7 - 2.3 mg/dL 07/31/2024 10:14 AM CDT DTL Blood (Blood, Venous) 07/31/2024 7:43 AM CDT 07/31/2024 9:25 AM CDT Deven Clement M.D. M.S. LAB BLOOD ADD -ON [facility] [address] [place] [address], [facility] DTL [facility] [address] [place] [address] * (ABNORMAL) Basic Metabolic Panel (07/31/2024 7:43 AM CDT) Only the most recent of10 resultswithin the time period is included. [facility] Potassium, S 4.2 3.6 - 5.2 mmol/L [...] LAB BLOOD ADD -ON Performing Organization Address City/[facility] Co de Phone Number [facility] [address] [place] [address], [facility] [place] [address] [place] [address] * Leg, left-Nursing Image Exam (07/30/2024 9:46 [...] RAD IMAGI NG PROCEDURES Performing Organization Address [facility] Co de Phone Number [facility] NA * (ABNORMAL) Hemoglobin A1c (07/29/2024 7:34 [...] LAB BLOOD ADD-O N Performing Organization Address City/[facility] Co de Phone Number [facility] [address] [place] [address], [facility] [place] [address] [place] [address] * ECG 12 Lead (07/27/2024 5:27 AM CDT) Only the most recent of3 resultswithin the time period is included. Ventricular Rate ECG/Min 66 BPM MUSE UT Interval 136 ms MUSE QRSD Interval 76 ms MUSE QT Interval 358 ms MUSE QTC Interval 375 ms MUSE P [place] 40 degrees MUSE R [place] 63 degrees MUSE T Wave [place] 122 degrees MUSE 07/27/2024 5:27 AM CDT [...] Yasmine Garduno M.D., Ph.D. ECG ORDERABLE S MUSE NA * (ABNORMAL) Troponin T, 5th Generation (07/26/2024 8:27 AM CDT) Pathologist [facility] Troponin T, 5th gen 110(H) <=15 ng/L 07/26/2024 9:[address] [facility] Comment:Consider acute myoca rdial injury Blood (Blood, Venous) 07/26/2024 8:27 AM CDT 07/26/2024 8:32 AM CDT Neftaly Gomez M.D. LAB BLOOD ADD-ON [facility] [address] [place] [address], [facility] [address] [place] [address] * (ABNORMAL) Morphology Eval (special smear) (07/26/2024 [...] LAB BLOOD ADD -ON Performing Organization Address City/[facility]/ZIP Co de Phone Number [facility] [address] [facility] [address] [place] [address] * Iron and Total Iron-Binding Capacity (07/26/2024 7:21 AM CDT) Iron 53 50 - 150 mcg/dL 07/26/2024 8:46 AM CDT DTL Total Iron Binding Capacity 270 250 - 400 mcg/dL 07/26/2024 8:46 AM CDT DTL Percent Saturation 20 14 - 50 % 07/26/2024 8:46 AM CDT DTL Blood (Blood, Venous) 07/26/2024 7:21 AM CDT 07/26/2024 8:10 AM CDT Yasmine Garduno M.D., Ph.D. LAB BLOOD ADD -ON [facility] [address] [place] [address], [facility] DTL [facility] [address] [place] [address] * Fibrinogen (07/26/2024 7:21 AM CDT) Fibrinogen, P 385 200 - 393 mg/dL 07/26/2024 8:23 AM CDT DTL Blood (Blood, Venous) 07/26/2024 7:21 AM CDT 07/26/2024 7:56 AM CDT Yasmine Garduno M.D., Ph.D. LAB BLOOD ADD -ON [facility] [address] [place], [place] [phone] [place] [address] [facility] [place] [address] [place] [address] * Reticulocytes (07/26/2024 7:21 AM CDT) Reticulocytes, B 1.46 0.60 - 2.71 % 07/26/2024 8:09 AM CDT DT Absolute Reticulocyte 62.8 30.4 - 110.9 x10(9)/L 07/26/2024 8:09 AM CDT DT Blood (Blood, Venous) 07/26/2024 7:21 AM CDT 07/26/2024 7:55 AM CDT Yasmine Garduno M.D., Ph.D. LAB BLOOD ADD -ON Performing Organization Address City/[facility] Co de Phone Number [facility] [address] [place], [place] [address] [place] [address] [place] [address] * (ABNORMAL) Haptoglobin (07/26/2024 7:21 AM CDT) Haptoglobin, S <14(L) 30 - 200 mg/dL 07/29/2024 8:13 AM CDT [facility] Blood (Blood, Venous) 07/26/2024 7:21 AM CDT 07/28/2024 6:34 AM CDT Yasmine Garduno M.D., Ph.D. LAB BLOOD ADD -ON Performing Organization Address City/[facility]/ZIP Co de Phone Number [facility] [address] [place] [address] [facility] [address] [place] [address] * Folate (07/26/2024 7:21 AM CDT) [facility] Folate, S 11.6 >=4.0 mcg/L 07/28/2024 8: 00 AM CDT DTL Blood (Blood, Venous) 07/26/2024 7:21 AM CDT 07/26/2024 8:10 AM CDT Yasmine Garduno M.D., Ph.D. LAB BLOOD ADD -ON Performing Organization Address City/[facility] Co de Phone Number [facility] [address] [place], [place] [phone] [place] [address] [facility] [place] [address] [place] [address] * Ferritin (07/26/2024 7:21 AM CDT) [facility] Ferritin, S 179 31 - 409 mcg/L 07/26/2024 8:46 AM CDT DTL Blood (Blood, Venous) 07/26/2024 7:21 AM CDT 07/26/2024 8:10 AM CDT Yasmine Garduno M.D., Ph.D. LAB BLOOD ADD -ON Performing Organization Address City/[facility]/ZIP Co de Phone Number [facility] [address] [place], [place] [address] [place] [address] [place] [address] * (ABNORMAL) Vitamin B12 Assay (07/26/2024 7:21 AM CDT) [facility] Vitamin B12 Assay, S 1206(H) 180 - 914 ng/L 07/28/2024 8:01 AM CDT DTL Comment: ----ADDITIONAL INFORMATION---- In [...] Garduno M.D., Ph.D. LAB BLOOD ADD -ON [facility] [address] [place] [address], [facility] DTL [facility] [address] [place] [address] * (ABNORMAL) Troponin T, 6h, 5th Gen (07/25/2024 7:26 PM CDT) Only the most recent of2 resultswithin the time period is included. Troponin T, 6 hr, 5th gen 106(H) <=15 ng/L 07/25/2024 8:07 PM CDT [facility] Comment:Consider acute myoca rdial injury 6H Delta [...] LAB BLOO D TROPONIN Performing Organization Address City/[facility]/ZIP Co de Phone Number [facility] [address] [place] [address], [facility] STMA [facility] [address] [place] [address] * (ABNORMAL) Troponin T, 2 Hour with [...] Interp Not Changing 07/25/2024 4:11 PM CDT [facility] Blood 07/25/2024 3:42 PM CDT 07/25/2024 3:47 PM CDT Barbara Jay B.Ch[place] [address], [place] [address] * (TTE) 2D ECHO DOPPLER COLOR (07/25/2024 3:24 PM CDT) Pathologist [facility] Ejection Fraction 65 MC CV EIMS LV [...] CABG x1, PVI, and DAHIANA amputation (19-SEP-2023, [place]). 3. Small left ventricular chamber size. Abnormal [...] CABG x1, PVI, and DAHIANA amputation (19-SEP-2023, [place]). Echocardiogram performed per left ventricular function [...] prosthesis, CABG x1,PVI, and DAHIANA amputation (19-SEP-2023, [place]). 3. Small left ventricular chamber size. Abnormal [...] prosthesis, CABG x1, PVI,and DAHIANA amputation (19-SEP-2023, [place]). Echocardiogram performed per leftventricular function protocol [...] PM CDT 07/25/2024 2:05 PM CDT Neftaly oGmez M.D. LAB BLOOD TROPONIN [facility] [address] [place], [place] [address] STMA [facility] [address] [place] [address] * (ABNORMAL) CRP (C-Reactive Protein) (07/25/2024 1:50 PM CDT) C-Reactive Protein (CRP), S 6.1(H) <5.0 mg/L 07/25/2024 3:06 PM CDT DTL Blood (Blood, Venous) 07/25/2024 1:50 PM CDT 07/25/2024 2:44 PM CDT Neftaly Gomez M.D. LAB BLOOD ADD-ON [facility] [address] [place], [place] [address] [address] [place] [address] * Sedimentation Rate (07/25/2024 1:49 PM CDT) Sedimentation Rate, B 13 3 - 28 mm/h 07/25/2024 4:17 PM CDT DTL Blood (Blood, Venous) 07/25/2024 1:49 PM CDT 07/25/2024 2:36 PM CDT Neftaly Gomez M.D. LAB BLOOD ADD-ON [facility] [address] [place], [place] [address] [address] [place] [address] * DX Chest AP or PA and [...] of the spine. Fanny Goodwin M.D., M.S. [facility] DIAGNOST IC IMAGING PROCEDURES * (ABNORMAL) NT-Pro B-Type Natriuretic Peptide (BNP) (07/24/2024 5:20 PM CDT) NT-Pro BNP 4826(H) <=540 pg/mL 07/24/2024 5:55 PM CDT [facility] Comment: NT-proBNP values less than [...] LAB BLOOD AD D-ON Performing Organization Address [facility] Co de Phone Number [facility] [address] [place] [address], [facility] [address] [place] [address] * XR chest 2V-Outside Chest Xray (06/04/2024 [...] DIAGNOSTIC IM AGING PROCEDURES Performing Organization Address [facility] de Phone Number [facility] NA * Lipid Panel (12/24/2023 9:44 AM ASSISTANT) Triglycerides 68 mg/dL 12/24/2023 1:00 PM ASSISTANT DTL Comment: ----REFERENCE VALUE---- Normal: <150 mg/dL Borderline High: 150-199 mg/dL High: 200-499 mg/dL Very High: > or =500 mg/dL Cholesterol, Total 107 mg/dL 2023 1:00 PM ASSISTANT DTL Comment: ----REFERENCE VALUE---- Desirable: < 200 mg/dL Borderline High: 200 - 239 mg/dL High: > or = 240 mg/dL Cholesterol, LDL, Calculated 50 mg/dL 12/24/2023 1:00 PM ASSISTANT DTL Comment: ----REFERENCE VALUE---- Desirable: <100 mg/dL Above Desirable: 100-129 mg/dL Borderline High: 130-159 mg/dL High: 160-189 mg/dL Very High: >=190 mg/dL ----ADDITIONAL INFORMATION---- LDL cholesterol calculated using the Iglesias/NIH equation. Cholesterol, HDL, S 42 >=40 mg/dL 12/24/2023 1:00 PM ASSISTANT DTL Cholesterol, Non-HDL, Calculated 65 mg/dL 12/24/2023 1:00 PM ASSISTANT DTL Comment: ----REFERENCE VALUE---- Desirable: <130 mg/dL Above Desirable: 130-159 mg/dL Borderline High: 160-189 mg/dL High: 190-219 mg/dL Very High: > or =220 mg/dL Fasting (8 HR or more) yes 12/24/2023 10:18 AM ASSISTANT DTL Blood (Blood, Venous) 12/24/2023 9:44 AM ASSISTANT 12/24/2023 10:18 AM ASSISTANT Gudelia Soto M.D. LAB BLOOD ADD-ON [facility] [address] [place] [address], [place] DTL [facility] [address] [place] [address] * Colonoscopy (11/21/2022) EXT Colonoscopy Normal - See Scanned Report for Details Normal - See Scanned Report for Details, HIMS - Report Received and Scanned Historical Provider GI PROCEDURE ORDERAB LES from Last 3 Months or Most Recently Relevant to Health Maintenance Advance Directives For more information, please contact: [phone] * Full Code (Latest Code Status on [...] Answer Comments Full Code: Discussed Care Teams Garden Labourer Relationship Specialty Start Date End Date Elsewhere, Pcp PCP - General Internal Medicine 07/28/24
--- OUTSIDE RECORDS SUMMARY | 2024-08-04 13:51 | XMS_ITS | Encounter Summary ---
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 Name Role Phone Elsewhere, Pcp Primary Care Provider Unavailabl e Reason for Visit * Reason Comments Leg Swelling * Auth/Cert (Routine) Specialty Diagnoses / Procedures Referred By Contac t Referred To Contact Diagnoses Edema Leg Procedures OBS TO INPT Referral ID Status Reason Start Date Expiration Date Visits Re quested Visits Authorized [id number] 1 1 Encounter Details Date Type Department Care Team (Latest Contact Info) Description 07/24/2024 4:49 PM CDT - 08/01/2024 2:08 PM CDT Hospital Encounter [facility], [facility], Fourth Floor [address] [place] [phone] Fanny Goodwin M.D., M.S. [address] [place] [phone] Haily Campbell APRN, C.N.P., D.N.P. [address] [place] [phone] Josee Devlin P.A.-C., M.S. [address] [place] [phone] Yasmine Garduno M.D., Ph.D. [address] [place] [phone] Deven Clement M.D., M.S. [address] [place] [phone] Shameka Feldman M.D. [address] [place] [phone] Fanny Zelaya M.D. [address] Edema Leg (Primary Dx); Shortness Of Breath; [...] drink = 0.6 oz pur e alcohol) [facility] Utilities Answer Date Recorded In the past 12 months has e [employer], gas, oil, or water [employer] threatened to shut off services in your [...] a [facility] to live 07/25/2024 Sex [...] Mass Index 30.53 07/25/2024 2:00 PM CDT documented in this encounter Discharge Summaries * Juan Carlos Gutierrez M.D. - 08/01/2024 1:01 PM CDT CARDIOLOGY HOSPITAL DISCHARGE SUMMARY DATE OF ADMISSION: 07/24/2024 DATE OF DISCHARGE: 08/01/2024 Discharge Provider: Shameka Feldman M.D. Discharge Provider Team: RST CARD 2 PRINCIPAL DIAGNOSIS Edema Leg DISMISSAL DIAGNOSES Constrictive Pericarditis with Lower Extremity Edema DISCHARGE DISPOSITION: Home or Self Care [1] RECOMMENDATIONS FOR FOLLOW-UP APPOINTMENTS For Primary Care: He needs INR, BMP, and CBC at follow up. Please adjust his warfarin dose as necessary, keeping in mind he will be on bactrim for 4 weeks after discharge for PJP prophylaxis. Please monitor patient's creatinine for resolution of his MANJEET. For Cardiology Provider: We started on long-term prednisone taper for this patient's pericarditis. Please ensure the patienthas followed this regimen properly. Please obtain a CRP and further taper his prednisone dosage as indicated. Please follow up on TTE and CMRI results at pericardial visit. We started this patient on PJP prophylaxis for 4 weeks due to being on 20 mg prednisone for 4 weeks. He should not require additional PJP prophylaxis unless his prednisone dosage is increased back to20 mg daily at some point. Medications Changed: Please See AVS for final discharge medication list FOLLOW-UP APPOINTMENTS Scheduled Appointments 09/29/2024 1:00 PM RST INTAKE VISIT POD A 01 Admitting/Central Scheduling 10/02/2024 10:00 AM ECG 01 [facility] CVD Cardiovascular Disease 10/02/2024 10:45 AM DX ROCH 02 RM 208 CHEST Radiology 10/02/2024 11:20 AM LAB BLOOD [facility] C Laboratory Medicine 10/02/2024 12:45 PM MR WOODALL 03 MR 44 1.5T Radiology 10/02/2024 2:00 PM Keagan Tellez M.D. Cardiovascular Disease For appointment details refer to your Patient Appointment Guide. HOSPITAL COURSE Admission Weight: 95.2 kg Dismissal Weight: 87.2 kg BMI: Body mass index is 30.53 kg/m??. Presenting Complaint Shortness of breath and Leg swelling Relevant Comorbidities His cardiac history is significant for mechanical aortic valve replacement and CABG x1, September 2023. Prior to Admission After his CABG and AVR in September 2023, he was diagnosed with post-operative acute effusive constrictive pericarditis in December 2023 when he was initiated on prolonged taper steroid therapy and colchicine. After steroids were tapered off in may, his symptoms significantly worsened. He had progressive shortness of breath and bilateral lower extremity edema that had gradually worsened since May. ED Course Mr Harris presented to [facility] on 07/24/24 with complaints of progressive shortness of breath and bilateral lower extremity edema. Upon arrival to the ED, he was vitally stable. Labs were notable for BNP 4826, Troponin 107 -> 110 - > 120. Denied chest pain. CXR showed a small-moderate left and trace right pleural effusions. EKG with low voltage QRS in limb leads, He was admitted to the cardiology floor for further workup. Hospital Course He was stable upon arrival. A TTE was performed showing recurrent effusive constrictive pericarditis. His case was discussed with the pericardial team and the plan was to restart steroids at 20mg QD,increase colchicine to 0.6mg QD. He will be on a prednisone taper until his pericardial clinic appointment, where he will have further imaging with TTE and CMRI and discussion regarding possible pericardiectomy. Patient was significantly volume overloaded and required significant diuresis from admission weightof 95.2 kg to 87kg. His symptoms and oedema significantly improved throughout his stay and he no longer endorsed dyspnoea. He did develop an MANJEET throughout his stay, with Cr rising to 3.06 from baseline of 2. UA and Renal US unremarkable, apart from perihepatic ascites. His MANJEET was thought to be due to intravascular volume depletion from diuresis despite persistent extravascular overload. His creatinine had started to downtrend to 2.93 on 08/01 prior to discharge. His Torsemide dose was decreased and he will be discharged on 20 mg daily. As he was commenced on steroids, his blood sugars were elevated. Diabetes and endocrinology was consulted and recommended home-going NPH insulin in the context of steroid-induced hyperglycemia, and stopping glipizide. Once patient is off of steroids he can likely stop insulin and resume Glipizide. He was also commenced on PJP prophylaxis. Final Principal Diagnosis Constrictive Pericarditis and Volume Overload TEST RESULTS PENDING AT DISCHARGE: Pending Labs None CONDITION ON DISCHARGE: Stable. PRIMARY PROVIDER Patient Care Team: Rowena Reddy M.D. as External Primary Care Physician (Internal Medicine) Primary Care Providers: Elsewhere, Pcp (General) No address on file Primary Care Provider Phone Number: None Primary Care Provider Fax Number: None documented in this encounter Discharge Instructions * Discharge Instructions* Mary Araya APRN, C.N.P. - 07/28/2024 2:30 PM CDT You were discharged from the T CARD 2 Service. Please identify this service name if you call withquestions after hospitalization. BLOOD GLUCOSE MANAGEMENT: Monitor blood glucose twice daily before morning and evening meal. Blood glucose goal is 100-140 mg/dL. Most recent A1c on record: Lab Results Component Value Date HGBA1C 7.5 (H) 07/29/2024 Follow-up with primary care provider within 7-10 days of discharge or earlier if blood glucose values are consistently out of goal range. Call in [facility]: Please call the Diabetes Consulting Service at (pager [phone]) from 7:30 AM to 9:00 AM for assistance with adjusting your insulin doses. Please call after checking your blood sugar, before taking your insulin, and before eating. Note that this is a temporary arrangement and patients should be following up with their local provider within 1 week of hospital dismissal for continued diabetes care. As Diabetes and Nutritional Education is important to your diabetes management, yearly follow up with a local Junior [employer] Principal and Dietitian is recommended. Please check with your insurance company as diabetes education visits are commonly covered. Your primary care provider can provide referrals for education. * Attachments The following attachments cannot be sent through Care Everywhere. * Insulin NPH (By injection) ([place]) * Pantoprazole (By mouth) ([place]) * Prednisone (By mouth) ([place]) * Sulfamethoxazole/Trimethoprim (By mouth) ([place]) documented in this encounter Medications at Time of Discharge Medication Sig Dispensed Refills Start Date End Date acetaminophen (TYLENOL) 500 mg tablet Take 1,000 mg by mouth every 6 (six) hours as needed for pain. alcohol swabs pads, medicated Use as needed for diabetes control 1500 each 3 08/01/2024 aspirin 81 mg chewable tablet Chew 1 tablet (81 mg total) daily. 09/26/2023 09/25/2024 atorvastatin (LIPITOR) 80 mg tablet Take 1 tablet (80 mg total) by mouth at bedtime. 09/26/2023 09/25/2024 blood glucose control high,low (Accu-Chek Guide L1-L2 Ctrl Nimo) solution Glucose control solution provides an easy way to ensure accurate blood glucose testing. 1 each 08/01/2024 blood sugar diagnostic strips 2 test daily. 200 test 08/01/2024 08/01/2025 blood-glucose meter misc Test as directed for diabetes control. 1 each 08/01/2024 cholecalciferol 10 mcg (400 Unit) tablet Take 10 mcg by mouth daily. colchicine (Colcrys) 0.6 mg tablet Take 1 tablet (0.6 mg total) by mouth daily. 30 tablet 08/01/2024 08/31/2024 cyanocobalamin 2,000 mcg tablet Take 2,000 mcg by mouth daily. finasteride (PROSCAR) 5 mg tablet Take 1 tablet (5 mg total) by mouth daily. 09/26/2023 iron,carbonyl-jesus min C (VITRON-C) 65 mg iron- [address] tablet Take 1 tablet (65 mg of iron total) by mouth daily. Do not crush or chew. 90 tablet 3 01/01/2024 12/31/2024 lancets 2 each daily. 200 each 08/01/2024 08/01/2025 metoprolol succinate (TOPROL-XL) 50 mg 24 hr tablet Take 1 tablet by mouth daily. 12/20/2023 pantoprazole (Protonix) 40 mg EC tablet Take 1 tablet (40 mg total) by mouth daily before morning meal. 30 tablet 08/01/2024 08/31/2024 pen needle, diabetic (BD Ultra-Fine Short Pen Needle) 31 gauge x 5/16 needle 2 Injection daily. 100 each 08/01/2024 08/01/2025 predniSONE (Deltasone) 5 mg tablet Take 4 tablets (20 mg) by mouth daily for 28 days, THEN 3.5 tablets (17.5 mg) daily for 14 days, THEN 3 tablets (15 mg) daily for 14 days until pericardial appt. Further dose to be decided at appt. DO NOT STOP TAKING ABRUPTLY 1020 tablet 08/01/2024 11/09/2024 rOPINIRole (REQUIP) 0.5 mg tablet Take 1 tablet (0.5 mg total) by mouth 3 (three) times a day. 09/26/2023 sulfamethoxazole-t rimethoprim (Bactrim) 400-80 mg per tabletIndications: Prophylaxis, medical Take 1 tablet by mouth daily for 28 doses Indications: Prophylaxis, medical. 28 tablet 08/02/2024 08/30/2024 tamsulosin (FLOMAX) 0.4 mg 24 hr capsule Take 1 capsule (0.4 mg total) by mouth at bedtime. 09/26/2023 torsemide (Demadex) 20 mg tablet Take 1 tablet (20 mg total) by mouth daily. 30 tablet 08/01/2024 08/31/2024 warfarin (Jantoven) 1 mg tabletIndications: Prosthesis Aortic Valve Take 2 mg daily until your INR check with Anticoagulation Clinic 7 tablet 08/01/2024 insulin NPH (NovoLIN N FlexPen) 100 unit/mL (3 mL) pen Inject 20 units subcutaneously in the morning and 10 units in the evening. Call in for dose adjustment 15 mL 08/01/2024 08/04/2024 documented as of this encounter Progress Notes * Jana Holcomb R.N., C.W.O.C.N. - 08/01/2024 11:12 AM CDT [facility] Wound RN reconsulted to assess Jong D Steven skin alterations. Wound assessment, pain, andBraden score noted in the flowsheet. No photography taken during this visit. History: Per provider note, the patient was admitted on 07/24 for constrictive pericarditis. His past medical history includes CAD, HF, HTN, HLD, AF, DM2, CKD3, and CVA. Assessment: The patient was assessed while he was sitting in his hospital chair. The previous toe space ulcers had scabs that were easily removed. The venous ulcer on the posterior lower leg continues to present with pale wound base and copious drainage. Compression is paramount to aid in healing of this ulcer. 08/01/24 1100 Wound 07/25/24 Venous Ulcer Posterior Lower Leg Date First Assessed/Time First Assessed: 07/25/24 1250 Present on Original Admission: Yes Wound Approximate Age at First Assessment: Unknown Primary Wound Type: Other Moisture Associated Skin Damage Location: Leg Wound Location Orientation: Bila... Pain Score 0 - none *Shape Round / oval *Tunneling None *Signs of Infection None *Wound Bed [place];Open Tissue Exposed None Odor None *Exudate Amount Copious Drainage Description Serous Gauri-wound Assessment Maceration Treatments Cleansed Periwound Treatment Cleansed (Comment) Wound Cleansed with Wound cleanser *Primary Dressing Gelling fiber/Hydrofiber *Primary Dressing Frequency of Change Daily & PRN Primary Dressing Changed New Primary Dressing Status Clean;Dry;Intact *Secondary Dressing Gauze *Secondary Dressing Frequency of Change Daily & PRN Secondary Dressing Changed New Secondary Dressing Status Clean;Dry;Intact 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 *Wound Bed Closed Focused assessment completed. DRESSING RECOMMENDATIONS: #1 Venous Ulcer Posterior Lower Leg -Cleanse the wound with Vashe wound cleanser and 4x4 gauze. -Place Aquacel Ag and cut to slightly larger than the wound, to ensure it comes into contact with the entire wound bed. Change once daily. -Cover the leg ulcer with 4x4 gauze and secure with roll gauze. *Follow Lower Extremity Edema Algorithm Recommended interventions for pressure redistribution and shear reduction: Offload heels on pillows at all times when in bed. Full 30 degree turns side to side every 2 hours with supine positioning only for meals. Reposition at least every hour while in the chair. Apply a prophylactic sacral Mepilex?? border dressing to cover the coccyx/sacral area. Ensure the dressing is in full contact with the skin to prevent moisture- related skin breakdown. Lift twice daily to assess when used for prevention. Change every 3 days and PRN. Utilize padding (Artiflex or Rosidal foam) under compression wraps. Recommended interventions for moisture control: Utilize the breathable incontinence underpads while in bed. Adult briefs should only be worn while ambulating or in the chair. NA Consult recommendations: NA Education: Discussed the plan of care with the patient and nursing. They agree to the plan. The [facility] RN will sign-off. Please place a wound care consult for any new concerns. Electronically signed by: Jana Holcomb R.N., LiliyaCJarrettN. 08/01/24 11:12 AM CDT Page Me Weekend Pager is [phone] (available Saturdays [phone]) * Hyacinth Tavares, PharmJarrettD., R.Ph., [facility] - 08/01/2024 7:34 AM CDT Pharmacist Progress Note Reason for admission: Recurrent constrictive pericarditis and acute decompensated HFpEF. PMH: AV stenosis s/p mechanical AV, CAD (CABG), effusive constrictive pericarditis, HFpEF, HTN, HLD, Afib, DM2, CKD 3, stroke. OBJECTIVE Neuro: RLS - Ropinirole 0.5 tid. CV: CAD s/p CABG - Aspirin 81 qd, Atorvastatin 80 qhs. Afib/mechanical AV - Metoprolol XL 50 qd, Warfarin Pericarditis - Prednisone 20 qd (PJP ppx -Bactrim SS daily), Colchicine 0.6 qd (tolerating) Neph: Estimated Creatinine Clearance: 22.8 mL/min (A) (by C-G formula based on SCr of 3.06 mg/dL (H)). BL SCr 2.0. BPH - Finasteride 5 mg daily, Tamsulosin 0.4 mg Endo: DM2 A1C 6.2% - SSI/cc+ NPH PPX: VTE - Warfarin. GI - Pantoprazole 40 mg daily (Steroid/colchicine/aspirin). Bowel Regimen - MiraLAX/Senna Medication Reconciliation: Held: Glipizide, iron (not taking), Torsemide Changed: none New: Pantoprazole Warfarin Warfarin Indication: Aortic valve - Mechanical Type of therapy: Continuation Prior average daily dose: 3 Target INR: 2 - 3 Notable drug interactions include the following: Bactrim Warfarin Administrations (last 168 hours) Date/Time Action Medication Dose 07/31/24 1644 Given warfarin tablet 2 mg (Jantoven) 2 mg 07/30/24 1207 Given warfarin tablet 1.5 mg (Jantoven) 1.5 mg 07/29/24 1652 Given warfarin tablet 1.5 mg (Jantoven) 1.5 mg 07/28/24 1744 Given warfarin tablet 1 mg (Jantoven) 1 mg 07/27/24 1649 Given warfarin tablet 1 mg (Jantoven) 1 mg 07/26/24 1813 Given warfarin tablet 2.5 mg (Jantoven) 2.5 mg 07/25/24 1623 Given warfarin tablet 2.5 mg (Jantoven) 2.5 mg INR (no units) Date Value Status 07/31/2024 2.2 Final 07/30/2024 2.4 Final 07/29/2024 3.0 Final 07/28/2024 3.5 Final 07/27/2024 3.5 Final 07/26/2024 2.7 Final 07/25/2024 2.9 Final ASSESSMENT / PLAN Recurrent constrictive pericarditis Reinitiated on prednisone at 20 mg daily. Taper plan per Dr. Valencia Progress note 07/31/24. PJP ppx indicated if prednisone >=20 mg daily for greater than one month. Reasonable to stop Bactrim based on current taper plan. Cautious use of colchicine give CrCl < 30. Colchicine was increased to 0.6 mg daily on 07/27/2024, recommend close monitoring for GI toxicity (N/V/D) Restrictive cardiomyopathy (LVEF 65%) eGFR 17 (cystatin C) precluding SGLT2i and spironolactone use a this time Afib, Mechanical On-X AV 09/19/2023 Continued on warfarin with goal INR 2-3. Dose has been reduced this admission in the setting of newBactrim for PJP ppx started 07/27. Anticipate warfarin requirements will be reduced 30-50% (to 1.5 -2 mg daily) in the setting of Bactrim use. Will continue with 2 mg today. Hyacinth Tavares Pharm.D., R.Ph., [facility] * Barbara Valencia M.B., B.Ch. - 07/31/2024 2:02 PM CDT CARDIOLOGY 2 SERVICE PROGRESS NOTE REASON FOR ADMISSION: Constrictive pericarditis ADMISSION DATE: 07/25/2024 at 10:01 AM, today is hospital day 6 SUBJECTIVE Yesterday, Patient received 40mg PO Torsemide, had 3L of UO Overnight, no major issues At bedside this morning, Patient feels well. Denies any chest pain or dyspnoea. OBJECTIVE DIAGNOSTICS Pertinent diagnostics as mentioned above, refer to results tab for more detailed information on diagnostic studies. PHYSICAL EXAMINATION: Constitutional General: He is not in acute distress. Appearance: Normal appearance. He is not ill-appearing, toxic-appearing or diaphoretic. Cardiovascular Rate and Rhythm: Normal rate and regular rhythm. Comments: JVD elevated Pulmonary Effort: Pulmonary effort is normal. Musculoskeletal Right lower leg: Edema present. Left lower leg: Edema present. Neurological Mental Status: He is alert. ASSESSMENT / PLAN Patient is a 74 y.o. male admit for lower extremity oedema and dyspnoea. Medical history is notablefor previous CABG + DAHIANA ligation + PVI + surgical mechanical AVR Sep 2023 c/b postoperative acute effusive constrictive pericarditis Nov 2023 - treated with colchicine and steroids (steroids tapered off in May 2024, now continues on colchicine). TTE 07/25/2024 showing effusive constrictive pericarditis. Troponins elevated but flat at 109-107-110 - he may have an element of concomitant myopericarditis. Plan to treat with steroids and colchicine with prednisone 40mg QD until next pericardial clinic appointment 4 weeks, where he will have further imaging with TTE and CMRI and discussion re ?pericardiectomy. In the meantime we will continue to diurese the patient. Patient symptomatically improving and is diuresing well. We were initially aiming to discharge today, however there is a significant rise in creatinine causing MANJEET with contraction alkalosis. This islikely due to over-diuresis. UA did not show evidence of RBC/WBC casts, and renal ultrasound did not reveal evidence of hydronephrosis. We will hold torsemide tomorrow and aim to discharge with a lower dose of 20mg PO. Unfortunately lab results were not back before the patient received his Torsemide 40mg today - so there may be worsening of renal function tomorrow. We have encourage the patient to increase his oral intake. # Postoperative acute effusive constrictive pericarditis Dec 2023 #HFpEF (EF 60% on ECHO 12/2023) #Lower extremity oedema #Dyspnoea + Orthopnoea #Severe s/p surgical mechanical AVR ([facility]) September 2023 #CABG x 1 w/left atrial appendage ligation and pulmonary vein isolation September 2023 Assessment Hemodynamically stable, fluid status improving Volume overload 2/2 to HFpEF and constrictive pericarditis Discharged at 87.9 kg 09/2023 after CABG and was felt to be slightly volume overloaded Plan Yesterday: Torsemide 40mg PO - patient was net negative 2L Torsemide 40mg today Monitoring daily magnesium and potassium with diuresis Continue Prednisone 20mg daily PJP prophylaxis initiated with bactrim 400-80 mg daily Increased to Colchicine 0.6 mg daily If diarrhea --> 0.3 mg daily Aspirin 81 mg daily Continue Metoprolol Succinate 50mg daily Plan for outpatient followup in pericardial clinic with repeat imaging TTE + CMRI Warfarin for anticoagulation in setting of mechanical valve. 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 Misty Webb, B.Ch. Associated attestation - Deven Clement M.D., M.S. - 07/31/2024 7:57 PM CDT Mr. Rory Porter is a 74-year-old gentleman with history significant for prior bypass surgery, left atrial appendage ligation, pulmonary vein isolation, mechanical aortic valve on 10/01/2023 complicated by acute effusive constrictive pericarditis noted in 12/01/2023 treated with colchicine and steroids. He was continued on colchicine but his steroids were tapered off gradually in 05/31/2024. He was admitted to our service with recurring evidence of effusive constrictive pericarditis as demonstrated on echo 07/25/2024 (note that this was a mixed restrictive and constrictive findings on echo). He was initiated on prednisone and is currently on 20 mg daily with Bactrim prophylaxis and pantoprazole. He continues on colchicine now in an increased dose of 0.6 mg without diarrhea. He was also on metoprolol XL 50 mg daily, spironolactone 25 mg daily, daily baby aspirin, finasteride 5 mg daily, atorvastatin 80 mg daily, tamsulosin 24 hour 0.4 mg daily Requip 0.5 mg daily and anticoagulation with Coumadin for a history of a mechanical valve, paroxysmal atrial fibrillation and prior stroke. I saw and evaluated the patient, participating in the [place]wood portions of the service. His symptoms have improved. His legs are wrapped and edematous (extravascular volume). We intended dismissed the patient today. However his creatinine has been increasing in the setting of a contraction alkalosis due to more aggressive diuresis with torsemide 40 mg daily (previously 20mg daily). The urinalysis did not show significant concerns in the renal ultrasound was within normal limits. Of note, he had a moderate volume of perihepatic ascites seen on the ultrasound. Prior chest x-ray has shown [id number] left pleural effusion. CRP at admission is 6.1 (in Dec 2023 10). We will continue to monitor him today and determine if he is appropriate for dismissal tomorrow. Given the reassuring workup of the UA and renal ultrasound, one might consider dismissal with close follow up on Sunday with electrolytes as already scheduled with his PCP. Follow up with the pericardial clinic has been arranged, next available in 2 months with repeat imaging. Note below is the prior taper--we will aim to proceed with a slower taper (multiple possible approaches that could be considered; e.g., consider starting with four weeks of 20 mg daily; two weeks 17.5 mg daily; two weeks 15 mg daily at which time he will have follow-up). Rest as per team note. ADDENDUM: Below is his prior taper upon review of the EMR: Prednisone 20 mg for 1 week 17.5 mg for 1 week 15 mg for 1 week 12.5 mg for 1 week 10 mg for 1 week Once he was nearing 10 mg dose, the team tapered the prednisone by 1 mg every 2 weeks until off with inflammatory markers checked each week. Prednisone 10 mg for 2 weeks 9 mg for 2 weeks 8 mg for 2 weeks 7 mg for 2 weeks 6 mg for 2 weeks 5 mg for 2 weeks 4 mg for 2 weeks 3 mg for 2 weeks 2 mg for 2 weeks 1 mg for 2 weeks * Zunilda Kennedy, Pharm.D., R.Ph., [facility] - 07/31/2024 9:39 AM CDT Warfarin Warfarin Indication: Aortic valve - Mechanical Type of therapy: Continuation Prior average daily dose: 3 Target INR: 2 - 3 Day of therapy: 5 and beyond Notable drug interactions include the following: Bactrim, Prednisone Concurrent anticoagulation: None INR reversal agents: were not given Warfarin Administrations (last 168 hours) Date/Time Action Medication Dose 07/30/24 1207 Given warfarin tablet 1.5 mg (Jantoven) 1.5 mg 07/29/24 1652 Given warfarin tablet 1.5 mg (Novtoven) 1.5 mg 07/28/24 1744 Given warfarin tablet 1 mg (Novtoven) 1 mg 07/27/24 1649 Given warfarin tablet 1 mg (Novtoven) 1 mg 07/26/24 1813 Given warfarin tablet 2.5 mg (Novtoven) 2.5 mg 07/25/24 1623 Given warfarin tablet 2.5 mg (Novtoven) 2.5 mg INR (no units) Date Value Status 07/31/2024 2.2 Final 07/30/2024 2.4 Final 07/29/2024 3.0 Final 07/28/2024 3.5 Final 07/27/2024 3.5 Final 07/26/2024 2.7 Final 07/25/2024 2.9 Final 07/24/2024 3.3 Final ASSESSMENT / PLAN Afib, Mechanical On-X AV 09/19/2023 Continued on warfarin with goal INR 2-3. Home dose is 3 mg/day. Due to new interaction with Bactrim, INR increased to 3.5 07/28 and dose was reduced to 1mg. INR continues to slowly trend down. Recommend 2mg daily with INR check Sunday. Zunilda Kennedy Pharm.D., R.Ph., BCPS * Barbara Valencia M.B., B.Ch. - 07/30/2024 2:14 PM CDT CARDIOLOGY 2 SERVICE PROGRESS NOTE REASON FOR ADMISSION: Constrictive pericarditis ADMISSION DATE: 07/25/2024 at 10:01 AM, today is hospital day 5 SUBJECTIVE Yesterday, Patient received 40mg PO Torsemide + 120mg IV lasix, was net negative -2.6L Overnight, No major issues At bedside this morning, Patient feels well denies chika chest pain or dyspnoea. Had a bowel movement. No diarrhoea currently OBJECTIVE DIAGNOSTICS Pertinent diagnostics as mentioned above, refer to results tab for more detailed information on diagnostic studies. PHYSICAL EXAMINATION: Constitutional General: He is not in acute distress. Appearance: Normal appearance. He is not ill-appearing or toxic-appearing. Cardiovascular Rate and Rhythm: Normal rate and regular rhythm. Heart sounds: No murmur heard. No friction rub. No gallop. Comments: Mechanical heart valve sounds noted JVD elevated to mid-neck Pulmonary Effort: Pulmonary effort is normal. No respiratory distress. Breath sounds: Normal breath sounds. No stridor. No wheezing, rhonchi or rales. Chest Chest wall: No tenderness. Musculoskeletal Right lower leg: Edema present. Left lower leg: Edema present. Comments: Remains oedematous but improvement in LL oedema Neurological General: No focal deficit present. Mental Status: He is alert and oriented to person, place, and time. ASSESSMENT / PLAN Patient is a 74 y.o. male admit for lower extremity oedema and dyspnoea. Medical history is notablefor previous CABG + DAHAINA ligation + PVI + surgical mechanical AVR Sep 2023 c/b postoperative acute effusive constrictive pericarditis Nov 2023 - treated with colchicine and steroids (steroids tapered off in May 2024, now continues on colchicine). TTE 07/25/2024 showing effusive constrictive pericarditis. Troponins elevated but flat at 109-107-110 - he may have an element of concomitant myopericarditis. Plan to treat with steroids and colchicine with prednisone 40mg QD until next pericardial clinic appointment 4 weeks, where he will have further imaging with TTE and CMRI and discussion re ?pericardiectomy. In the meantime we will continue to diurese the patient. Patient symptomatically improving - back to weight in September which was 88kg. We will aim to discharge on PO Torsemide 40mg tomorrow. He still has peripheral oedema but ultimately with chronic constrictive pericarditis this will be unlikely to fully resolve. # Postoperative acute effusive constrictive pericarditis Dec 2023 #HFpEF (EF 60% on ECHO 12/2023) #Lower extremity oedema #Dyspnoea + Orthopnoea #Severe s/p surgical mechanical AVR ([facility]) September 2023 #CABG x 1 w/left atrial appendage ligation and pulmonary vein isolation September 2023 Assessment Hemodynamically stable, fluid status improving Volume overload 2/2 to HFpEF and constrictive pericarditis Discharged at 87.9 kg 09/2023 after CABG and was felt to be slightly volume overloaded Plan Yesterday: 120mg IV lasix + 40mg PO Torsemide , patient was -2.6L Torsemide 40mg today Monitoring daily magnesium and potassium with diuresis Target Dry Weight: About 88 kg Continue Prednisone 20mg daily PJP prophylaxis initiated with bactrim 400-80 mg daily Increased to Colchicine 0.6 mg daily If diarrhea --> 0.3 mg daily Aspirin 81 mg daily Continue Metoprolol Succinate 50mg daily Plan for outpatient followup in pericardial clinic in 4 weeks with repeat imaging TTE + CMRI No more daily EKGs needed Warfarin for anticoagulation in setting of mechanical valve. 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 Misty Webb, B.Ch. Associated attestation - Deven Clement M.D., M.S. - 07/30/2024 7:01 PM CDT I saw and evaluated the patient, participating in the smallwood portions of the service. I reviewed the Dr. Valencia's note. I agree with his findings and plan. 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 His dyspnea has also resolved. He has been diuresed>8 L since admission.We have now transitioned him to torsemide 40 mg daily with a goal of at least net -1-2 L for the day. We will continue with his current treatment regimen with anticipated dismissal tomorrow. He is currently on prednisone 20 mg daily plan for 4 weeks with Bactrim for prophylaxis, colchicine was increased to 0.6 mg daily, on PPI was started. He remains on warfarin in the setting of a mechanical valveand atrial fibrillation. He also remains on aspirin, metoprolol, and statin in the setting of severe coronary artery disease. Will plan to have him follow up with the pericardial clinic at 1 month with repeat cardiac MRI, TTE and inflammatory markers. Rest as per the team. * Rowena Alicea APRN, C.N.P., D.N.P. - 07/30/2024 10:44 AM CDT SUBJECTIVE HISTORY OF PRESENT ILLNESS LOS: 5 days DCS continues to follow this 74 y.o. male for blood glucose management admitted on 07/24/2024 for Edema Leg PREADMISSION DIABETES THERAPY: Glipizide XL 5 milligrams daily Patient reports that he has been on metformin in the past but this was discontinued most likely in the setting of his renal function. He also trialed Ozempic for short period of time. He is unclear why Ozempic was discontinued. Patient is in no acute distress. Resting in bed. Reviewed hospital insulin regimen. Reviewed dismissal plan. Blood Glucose Results in Last 24 Hours: Recent Labs 07/30/24 0803 07/30/24 0745 07/29/24 2132 07/29/24 1646 07/29/24 1130 GLUCOSEPOC -- 105 235 H 239 H 194 H GLUCOSE 98 -- -- -- -- Yesterday given NPH 10 units twice daily and NovoLog 16 units total for the correction of hyperglycemia. STEROIDS: Prednisone 20 mg daily Current Diet Adult Diet Regular; 1500 mL Fluid; Cardiovascular starting at 07/27 959 OBJECTIVE VITAL SIGNS Temperature: 36.8 ??C Heart Rate: 62 Resp Rate: 17 Blood Pressure: 126/73 BP Location: Left arm;Upper SpO2: 98 % BMI (Calculated): 30.8 kg/m?? Height: 169 cm Weight: 88 kg Body mass index is 30.81 kg/m??. DIAGNOSTICS Lab Results Component Value Date CREATININE 2.75 (H) 07/30/2024 Estimated Creatinine Clearance: 25.5 mL/min (A) (by C-G formula based on SCr of 2.75 mg/dL (H)). ASSESSMENT / PLAN #1 Diabetes mellitus, type 2, preadmission euglycemia, A1c 7.5% July 29, 2024 CKD stage 3 , peripheral neuropathy #2 Hyperglycemia in the setting of steroids #3 Concerns for recurrent constrictive pericarditis INPATIENT PLAN: - Blood Glucose Monitoring: four times daily before meals and bedtime - Glucose Goal: 140-180 mg/dL. - Basal: NPH 10 units in the morning and 6 units in the evening. - Mealtime: NovoLog 1 unit for every 10 grams of carbohydrates consumed with meals. - Correction Scale: NovoLog moderate correction scale three times a day and modified bedtime correction scale - DCS will evaluate and adjust insulin doses as indicated to achieve glycemic goal. - Hold oral diabetes medications ANTICIPATED DISMISSAL PLAN: Recommend NPH insulin twice daily in the setting of long term care social worker steroids. Once patient is off of steroids he can likely stop insulin and resume Glipizide. Blood Glucose Frequency: twice daily Goal: 120-180 mg/dL, higher goal due to comorbidities Final DCS recommendations and prescriptions updated for dismissal. Discussed above plan with the patient. Patient is alert and oriented and in agreement with the plan. DCS pager [phone] will continue to follow. Call primary service for diabetes concerns between 6:30 p.m. and 6:30 a.m. Primary service to contact contract management specialist Endocrinology fellow via hospital lift operator for questions. * Zunilda Kennedy, Luis Carlos.D., R.Ph., [facility] - 07/30/2024 9:21 AM CDT Pharmacist Progress Note Reason for admission: Recurrent constrictive pericarditis and acute decompensated HFpEF. PMH: AV stenosis s/p mechanical AV, CAD (CABG), effusive constrictive pericarditis, HFpEF, HTN, HLD, Afib, DM2, CKD 3, stroke. OBJECTIVE Neuro: Stroke - Aspirin, Warfarin. RLS - Ropinirole 0.5 tid. CV: CAD - Aspirin 81 qd, Atorvastatin 80 qhs. Afib/mechanical AV - Metoprolol XL 50 qd, Warfarin INR 2.4. Pericarditis - Prednisone 20 qd (PJP ppx -Bactrim SS daily), Colchicine 0.6 qd (tolerating) Neph: Estimated Creatinine Clearance: 25.9 mL/min (A) (by C-G formula based on SCr of 2.71 mg/dL (H)). BL SCr 2.0. BPH - Finasteride 5mg daily, Tamsulosin 0.4mg Endo: DM2 A1C 6.2% - Carb Counting + Correction Scale (16 units) + NPH 10/6u BID PPX: VTE - Warfarin INR 2.4. GI - Pantoprazole 40mg daily (Steroid/colchicine/aspirin). Bowel Regimen - Miralax/Senna Medication Reconciliation: Held: Glipizide XL 5mg daily, iron (not taking), Torsemide 40mg daily Changed: none New: Prednisone, Spironolactone 25mg daily (held), Pantoprazole Warfarin Warfarin Indication: Aortic valve - Mechanical Type of therapy: Continuation Prior average daily dose: 3 Target INR: 2 - 3 Day of therapy: 5 and beyond Notable drug interactions include the following: Bactrim, Prednisone Concurrent anticoagulation: None INR reversal agents: were not given Warfarin Administrations (last 168 hours) Date/Time Action Medication Dose 07/29/24 1652 Given warfarin tablet 1.5 mg (Jantoven) 1.5 mg 07/28/24 1744 Given warfarin tablet 1 mg (Jantoven) 1 mg 07/27/24 1649 Given warfarin tablet 1 mg (Jantoven) 1 mg 07/26/24 1813 Given warfarin tablet 2.5 mg (Jantoven) 2.5 mg 07/25/24 1623 Given warfarin tablet 2.5 mg (Jantoven) 2.5 mg INR (no units) Date Value Status 07/30/2024 2.4 Final 07/29/2024 3.0 Final 07/28/2024 3.5 Final 07/27/2024 3.5 Final 07/26/2024 2.7 Final 07/25/2024 2.9 Final 07/24/2024 3.3 Final ASSESSMENT / PLAN Recurrent constrictive pericarditis Reinitiated on prednisone at 20 mg daily. Increased colchicine 0.3 mg daily to 0.6mg daily om 07/27/2024, recommend close monitoring for GI toxicity (N/V/D ADHF IVB Lasix 120mg a day -> net negative 11.9L since admission. Resume home Torsemide 40mg daily. Afib, Mechanical On-X AV 09/19/2023 Continued on warfarin with goal INR 2-3. Home dose is 3 mg/day. Due to new interaction with Bactrim, INR has increased to 3.5 07/28 and dose was reduced to 1mg. INR within therapeutic range after reduced dosing of 1mg and 1.5mg. Will continue with 1.5mg today. Note, may take a few weeks to determinenew warfarin requirements due significant drug interaction with Bactrim. Zunilda Kennedy, PharmJarrettDJarrett, R.Ph., BCPS * Yasmine Garduno M.D., Ph.D. - 07/29/2024 5:41 PM CDT #1 Concern for recurrent constrictive pericarditis with profound volume overload #2 History of post-surgical effusive constrictive pericarditis (December 2023), on prolonged steroid taper till May 2024 #3 Severe aortic stenosis, status post 23 mm On-X mechanical AVR, September 2023 #4 CABG x1, SVG to PDA, September 2023 #5 CKD stage 3B (baseline creat has ranged from 2-2.5) #6 Stroke 2019 #7 Paroxysmal atrial fibrillation #8 Type 2 diabetes, HbA1C 7.5% #9 Anemia and thrombocytopenia Mr. Harris has recurrent constrictive pericarditis, no cardiopulmonary concerns overnight. He continues to have profound lower extremity edema, although much improved from admission and his dyspneahas resolved. We diuresed him over 8 L since admission. He still has significant amount of fluid onboard and we will continue with diuresis. We will continue with Lasix today but hold off metolazonetoday, monitoring his creatinine which has increased to 2.7. Bedside ultrasound revealed that IVC is dilated without collapse. He continues on prednisone, 20 mg daily, planned for about 4 weeks. We started him on Bactrim prophylaxis. Colchicine was increased to 0.6 mg daily, we will watch for any development of diarrhea. PPIwas started. Patient is on warfarin in the setting of mechanical aortic valve and atrial fibrillation. INR 3.0 (his goal INR has been 2-3); pharmacy dosing. He will also continue aspirin, high-intensity statin and metoprolol in the setting of severe CAD. Plan is to follow-up in Pericardial Clinic at 1 month after restarting high dose steroids this admission, and at that time we will repeat cardiac MRI and TTE as well as inflammatory markers. The rest of the impression, report and plan as documented by Dr. Valencia. * Barbara Valencia M.B., B.Ch. - 07/29/2024 3:13 PM CDT CARDIOLOGY 2 SERVICE PROGRESS NOTE REASON FOR ADMISSION: Constrictive pericarditis ADMISSION DATE: 07/25/2024 at 10:01 AM, today is hospital day 4 SUBJECTIVE Overnight, no major issues At bedside this morning, Patient feels well. Denies any symptoms OBJECTIVE DIAGNOSTICS Pertinent diagnostics as mentioned above, refer to results tab for more detailed information on diagnostic studies. PHYSICAL EXAMINATION: Constitutional General: He is not in acute distress. Appearance: Normal appearance. He is not ill-appearing, toxic-appearing or diaphoretic. Cardiovascular Rate and Rhythm: Normal rate and regular rhythm. Heart sounds: Normal heart sounds. No murmur heard. No friction rub. No gallop. Pulmonary Effort: Pulmonary effort is normal. No respiratory distress. Breath sounds: Normal breath sounds. No stridor. No wheezing, rhonchi or rales. Chest Chest wall: No tenderness. Musculoskeletal Right lower leg: Edema present. Left lower leg: Edema present. Comments: Still some significant b/l pitting oedema Neurological General: No focal deficit present. Mental Status: He is alert and oriented to person, place, and time. Mental status is at baseline. ASSESSMENT / PLAN Patient is a 74 y.o. male admit for lower extremity oedema and dyspnoea. Medical history is notablefor previous CABG + DAHIANA ligation + PVI + surgical mechanical AVR Sep 2023 c/b postoperative acute effusive constrictive pericarditis Nov 2023 - treated with colchicine and steroids (steroids tapered off in May 2024, now continues on colchicine). TTE 07/25/2024 showing effusive constrictive pericarditis. Troponins elevated but flat at 109-107-110 - he may have an element of concomitant myopericarditis. Plan to treat with steroids and colchicine with prednisone 40mg QD until next pericardial clinic appointment 4 weeks, where he will have further imaging with TTE and CMRI and discussion re ?pericardiectomy. In the meantime we will continue to diurese the patient. # Postoperative acute effusive constrictive pericarditis Dec 2023 #HFpEF (EF 60% on ECHO 12/2023) #Lower extremity oedema #Dyspnoea + Orthopnoea #Severe s/p surgical mechanical AVR ([facility]) September 2023 #CABG x 1 w/left atrial appendage ligation and pulmonary vein isolation September 2023 Assessment Hemodynamically stable, fluid status improving, still volume overloaded Volume overload 2/2 to HFpEF and constrictive pericarditis Discharged at 87.9 kg 09/2023 after CABG and was felt to be slightly volume overloaded Plan Yesterday: 120mg IV lasix given, patient was -2.6L Torsemide 40mg today Monitoring daily magnesium and potassium with diuresis Target Dry Weight: About 88 kg Continue Prednisone 20mg daily PJP prophylaxis initiated with bactrim 400-80 mg daily Increased to Colchicine 0.6 mg daily If diarrhea --> 0.3 mg daily Aspirin 81 mg daily Continue Metoprolol Succinate 50mg daily Plan for outpatient followup in pericardial clinic in 4 weeks with repeat imaging TTE + CMRI No more daily EKGs needed Warfarin for anticoagulation in setting of mechanical valve. 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 Misty Webb, B.Ch. * Max Garza R.N. - 07/29/2024 1:22 PM CDT REASON FOR VISIT: Educational visit with patient for diabetes overview, diabetes program review, and hands-on instruction. DISCHARGING PROGRAM: NPH Split Dose Program. EDUCATION PROVIDED/REVIEWED: Reviewed type 2 diabetes and steroid's effect on blood sugars. Reviewed NPH and the need to roll/mix it prior to administration. Educated patient on testing frequency, glucose goal parameters, medication action, insulin action, injecting insulin, insulin storage, site rotation, hyperglycemia, and hypoglycemia. Provided and reviewed record book to patient for tracking blood sugars. Provided and reviewed folder with individualized educational material. Reviewed the importance of metering for dosing needs and the need for adjustments on a steroid taper. Discussed how diet, exercise, steroids, and weight loss impacts diabetes. Encouraged follow up with his PCP for continued management. All quest ions answered at this time, pt able to teach back. NURSE/PATIENT DEMONSTRATION: Demonstrated and discussed insulin administration via insulin pens. Patient declines the need to practice with injections as he has used Ozempic pens in the past. Patient states he is comfortable with glucometer use as he has a meter at home. FOLLOW-UP: Inpatient Diabetes Education complete; please re-consult Diabetes Education if further educational needs arise. Instructed patient to review AVS for final recommendations. air route controller number provided for outpatient follow-up. REFERENCES: Medications: Insulin ([id number]) Using an insulin pen ([id number]) Diabetes Record Sheet ([id number]) Hypoglycemia ([id number]) Hyperglycemia ([id number]) * Jack Mcclendon, Pharm.D., R.Ph., BCPS, M.B.A. - 07/29/2024 11:44 AM CDT Warfarin Dosing Progress Note: Jong Harris is a 74 y.o. male who was admitted to the hospital on 07/24/2024. Hospital Pharmacy has been consulted for inpatient warfarin management and monitoring. Warfarin Indication: Aortic valve - Mechanical Type of therapy: Continuation Prior average daily dose: 3 Comorbidities: Acute heart failure (e.g. fluid retention, pulmonary edema) Are any of these comorbidities new with admission? No Are there any new medication interactions with admission? Yes Target INR: 2 - 3 Day of therapy: 5 and beyond Drug interactions include the following: Strong Potentiator (From admission, onward) Start Dose/Rate Route Frequency Ordered Stop 07/27/24 1145 sulfamethoxazole-trimethoprim 400-80 mg per tablet 1 tablet (Bactrim) 1 tablet oral Daily 07/27/24 1129 Moderate Potentiators (From admission, onward) None Potentiating (From admission, onward) Start Dose/Rate Route Frequency Ordered Stop 07/24/24 2100 rOPINIRole tablet 0.5 mg (Requip) 0.5 mg oral 3 times daily 07/24/24 2050 Enzyme Inducers (From admission, onward) None Binders (From admission, onward) None Vitamin K-Containing Medications (168h ago, onward) None Antiplatelets & Anticoagulants (168h ago, onward) Start Dose/Rate Route Frequency Ordered Stop 07/29/24 1700 warfarin tablet 1.5 mg (Jantoven) 1.5 mg oral Once 07/29/24 1144 07/29/24 2345 07/28/24 1700 warfarin tablet 1 mg (Jantoven) 1 mg oral Once 07/28/24 1200 07/28/24 1744 07/27/24 1700 warfarin tablet 1 mg (Jantoven) 1 mg oral Once 07/27/24 1048 07/27/24 1649 07/26/24 1700 warfarin tablet 2.5 mg (Jantoven) 2.5 mg oral Once 07/26/24 0907 07/26/24 1813 07/25/24 1700 warfarin tablet 2.5 mg (Jantoven) 2.5 mg oral Once 07/25/24 1353 07/25/24 1623 07/25/24 1345 warfarin management (Jantoven) oral Daily 07/25/24 1327 07/25/24 0900 aspirin chewable tablet 81 mg 81 mg oral Daily 07/24/24 2050 INR reversal agents were not given. Warfarin Reversal Agent Administrations (last 168 hours) Vitamin K and K-Centra None FFP Administrations During Encounter (Filter): EAP GENERAL TRANSFUSE FFP Medications Shown None Warfarin Administrations (last 168 hours) Date/Time Action Medication Dose 07/28/24 1744 Given warfarin tablet 1 mg (Jantoven) 1 mg 07/27/24 1649 Given warfarin tablet 1 mg (Jantoven) 1 mg 07/26/24 1813 Given warfarin tablet 2.5 mg (Jantoven) 2.5 mg 07/25/24 1623 Given warfarin tablet 2.5 mg (Jantoven) 2.5 mg INR (no units) Date Value Status 07/29/2024 3.0 Final 07/28/2024 3.5 Final 07/27/2024 3.5 Final 07/26/2024 2.7 Final 07/25/2024 2.9 Final 07/24/2024 3.3 Final A/P: Warfarin order of 1.5 mg has been placed for today and the pharmacist team will continue to follow patient's clinical progress daily until discharge from the hospital. Jack Mcclendon Pharm.D., R.Ph., BCPS, M.B.A. * Winnie Loera D.T.R. - 07/29/2024 9:09 AM CDT Patient was assessed and determined to be nutritionally stable. Clinical nutrition will sign off but will continue to screen per departmental guidelines. Please reconsult for any questions/concerns regarding patient's nutritional status. Pt is eating 100% of meals. He is currently still sitting above dry weight. For questions about patient's nutritional care please contact pager [phone] on weekdays or [phone] on weekends/holidays. * Yasmine Garduno M.D., Ph.D. 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 He feels better. He continues on prednisone, 20 mg daily, planned for about 4 weeks. We started him on Bactrim prophylaxis. Colchicine was increased to 0.6 mg daily, we will watch for any development of diarrhea. PPIwas started. We continue with diuresis (lasix and metolazone). Patient is on warfarin in the setting of mechanical aortic valve and atrial fibrillation. INR 3.5 (his goal INR has been 2-3); pharmacy dosing. He will also continue aspirin, high-intensity statin and metoprolol in the setting of severe CAD. Plan is to follow-up in Pericardial Clinic at that time with repeat cardiac MRI and TTE as well as inflammatory markers. The rest of the impression, report and plan as documented by Dr. Valencia. * Jana Holcomb R.N., C.W.O.C.N. - 07/28/2024 11:35 AM CDT WOC Wound RN reconsulted to assess Jong Nieto Steven skin alterations. Wound assessment, pain, andBraden score noted in the flowsheet. The patient verbally consented to photography of the affected area for clinical trending purposes. Images were taken and are available in [facility]. History: Per provider note, the patient was admitted on 07/24 for constrictive pericarditis. His past medical history includes CAD, HF, HTN, HLD, AF, DM2, CKD3, and CVA. Assessment: The patient was assessed while he was sitting in his hospital chair. His toe spaces have ulcers present. Sensation is diminished in the right lower extremity as a result of previous stroke. 07/28/24 1045 Wound 07/28/24 Neuropathic Toe Fifth Anterior;Right to Fourth and Third Toe Spaces Date First Assessed/Time First Assessed: 07/28/24 0000 Present on Original Admission: No Primary Wound Type: Neuropathic Location: Toe Fifth Wound Location Orientation: Anterior;Right Wound Description (Comments): to Fourth and Third Toe Spaces Pain Score 0 - none *Shape Irregular *Tunneling None *Signs of Infection None *Wound Bed Open;Brown;[place] Tissue Exposed None Odor Mild *Exudate Amount Scant Drainage Description Serosanguineous Gauri-wound Assessment Fragile Treatments Cleansed Periwound Treatment Cleansed (Comment) Wound Cleansed with Cleansing wipes *Primary Dressing Gelling fiber/Hydrofiber (Aquacel AG) *Primary Dressing Frequency of Change Daily & PRN Primary Dressing Changed New Primary Dressing Status Clean;Dry;Intact 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 DRESSING RECOMMENDATIONS: #1 Moisture Associated Skin Damage Bilateral Lower Legs Circumferential #2 Neuropathic Toe Fifth Anterior;Right to Fourth and Third Toe Spaces -Cleanse the wound with Vashe wound cleanser and 4x4 gauze. Pat dry and dry between toes. -Place Aquacel Ag and cut to slightly larger than the wound, to ensure it comes into contact with the entire wound bed. Change once daily. -Place pieces of Aquacel in between the right third, fourth, and fifth toes. Leave open to air. -Cover the leg ulcers with 4x4 gauze and secure with roll gauze. *Follow Lower Extremity Edema Algorithm Recommended interventions for pressure redistribution and shear reduction: Offload heels on pillows at all times when in bed. Full 30 degree turns side to side every 2 hours with supine positioning only for meals. Reposition at least every hour while in the chair. Apply a prophylactic sacral Mepilex?? border dressing to cover the coccyx/sacral area. Ensure the dressing is in full contact with the skin to prevent moisture- related skin breakdown. Lift twice daily to assess when used for prevention. Change every 3 days and PRN. Utilize padding (Artiflex or Rosidal foam) under compression wraps. Recommended interventions for moisture control: Utilize the breathable incontinence underpads while in bed. Adult briefs should only be worn while ambulating or in the chair. NA Consult recommendations: NA Education: Discussed the plan of care with the patient and nursing. They agree to the plan. The WOC RN will continue to see the patient, contact or reconsult for worsening wounds or new wounds. Electronically signed by: Jana Holcomb R.N., Nahed 07/28/24 1:15 PM CDT Page Me Weekend Pager is [phone] (available Saturdays [phone]) * Barbara Valencia M.B., B.Ch. - 07/28/2024 10:59 AM CDT CARDIOLOGY 2 SERVICE PROGRESS NOTE REASON FOR ADMISSION: Constrictive pericarditis ADMISSION DATE: 07/25/2024 at 10:01 AM, today is hospital day 3 SUBJECTIVE Yesterday, Patient received 280mg IV lasix + 2.5mg metolazone - was -3.2 L yesterday Overnight, No major issues At bedside this morning, Patient feels well - reports improvement in symptoms of dyspnoea and orthopneoa, cough has resolved OBJECTIVE DIAGNOSTICS Pertinent diagnostics as mentioned above, refer to results tab for more detailed information on diagnostic studies. PHYSICAL EXAMINATION: Constitutional General: He is not in acute distress. Appearance: Normal appearance. He is not ill-appearing, toxic-appearing or diaphoretic. Cardiovascular Heart sounds: Normal heart sounds. No murmur heard. No friction rub. No gallop. Comments: JVD elevated Pulmonary Effort: Pulmonary effort is normal. No respiratory distress. Breath sounds: Normal breath sounds. No stridor. No wheezing, rhonchi or rales. Chest Chest wall: No tenderness. Musculoskeletal Right lower leg: Edema present. Left lower leg: Edema present. Neurological General: No focal deficit present. Mental Status: He is alert and oriented to person, place, and time. Mental status is at baseline. Psychiatric Mood and Affect: Mood normal. Behavior: Behavior normal. Thought Content: Thought content normal. Judgment: Judgment normal. ASSESSMENT / PLAN Patient is a 74 y.o. male admit for lower extremity oedema and dyspnoea. Medical history is notablefor previous CABG + DAHIANA ligation + PVI + surgical mechanical AVR Sep 2023 c/b postoperative acute effusive constrictive pericarditis Nov 2023 - treated with colchicine and steroids (steroids tapered off in May 2024, now continues on colchicine). TTE 07/25/2024 showing effusive constrictive pericarditis. Troponins elevated but flat at 109-107-110 - he may have an element of concomitant myopericarditis. Plan to treat with steroids and colchicine with prednisone 40mg QD until next pericardial clinic appointment 4 weeks, where he will have further imaging with TTE and CMRI and discussion re ?pericardiectomy. In the meantime we will continue to diurese the patient. # Postoperative acute effusive constrictive pericarditis Dec 2023 #HFpEF (EF 60% on ECHO 12/2023) #Lower extremity oedema #Dyspnoea + Orthopnoea #Severe s/p surgical mechanical AVR ([facility]) September 2023 #CABG x 1 w/left atrial appendage ligation and pulmonary vein isolation September 2023 Assessment Hemodynamically stable, fluid status improving, significantly volume overloaded. Volume overload 2/2 to HFpEF and constrictive pericarditis Discharged at 87.9 kg 09/2023 after CABG and was felt to be slightly volume overloaded Plan Yesterday: 280mg IV Lasix given + Metolazone 2.5mg - was net negative 3.2L IV Lasix 120mg today - can redose in the afternoon if needed Monitoring daily magnesium and potassium with diuresis Target Dry Weight: About 88 kg Continue Prednisone 20mg daily PJP prophylaxis initiated with bactrim 400-80 mg daily Increased to Colchicine 0.6 mg daily If diarrhea --> 0.3 mg daily Aspirin 81 mg daily Continue Metoprolol Succinate 50mg daily Plan for outpatient followup in pericardial clinic in 4 weeks with repeat imaging TTE + CMRI No more daily EKGs needed Warfarin for anticoagulation in setting of mechanical valve. 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 Misty Webb, B.Ch. * Zunilda Kennedy Pharm.D., R.Ph., [facility] - 07/28/2024 8:10 AM CDT Pharmacist Progress Note Reason for admission: Concern for recurrent constrictive pericarditis PMH: AV stenosis s/p mechanical AV, CAD (CABG), effusive constrictive pericarditis, HFpEF, HTN, HLD, Afib, DM2, CKD 3, stroke. OBJECTIVE Neuro: Stroke - Aspirin, Warfarin. RLS - Ropinirole 0.5 tid. CV: CAD - Aspirin 81 qd, Atorvastatin 80 qhs. Afib/mechanical AV - Metoprolol XL 50 qd, warfarin. Pericarditis - Prednisone 20 qd (Bactrim SS daily), Colchicine 0.6 qd (tolerating) Neph: Estimated Creatinine Clearance: 27.9 mL/min (A) (by C-G formula based on SCr of 2.54 mg/dL (H)). BL SCr 2.0. Finasteride 5mg daily, Tamsulosin 0.4mg Endo: DM2 A1C 6.2% - Correction Scale (12 units) + NPH 10u BID PPX: VTE - Warfarin INR 3.5. GI - Pantoprazole 40mg daily (Steroid/colchicine/aspirin) Medication Reconciliation: Held: Glipizide XL 5mg daily, iron (not taking), torsemide Changed: none New: Prednisone, Spironolactone 25mg daily (held Warfarin Warfarin Indication: Aortic valve - Mechanical Type of therapy: Continuation Prior average daily dose: 3 Target INR: 2 - 3 Day of therapy: 4 Notable drug interactions include the following: Bactrim, Prednisone Concurrent anticoagulation: None INR reversal agents: were not given Warfarin Administrations (last 168 hours) Date/Time Action Medication Dose 07/27/24 1649 Given warfarin tablet 1 mg (Jantoven) 1 mg 07/26/24 1813 Given warfarin tablet 2.5 mg (Jantoven) 2.5 mg 07/25/24 1623 Given warfarin tablet 2.5 mg (Novtoven) 2.5 mg INR (no units) Date Value Status 07/28/2024 3.5 Final 07/27/2024 3.5 Final 07/26/2024 2.7 Final 07/25/2024 2.9 Final 07/24/2024 3.3 Final ASSESSMENT / PLAN Recurrent constrictive pericarditis Reinitiated on prednisone at 20 mg daily.Increased colchicine 0.3 mg daily to 0.6mg daily, recommend close monitoring for diarrhea. Addition of PPI while on prednisone/colchicine/aspirin/warfarin. Afib, Mechanical On-X AV 09/19/2023 Continued on warfarin with goal INR 2-3. Home dose is 3 mg/day. Due to new interaction with Bactrim, INR has increased to 3.5 yesterday and dose was reduced to 1mg. INR is stable but still reflectiveof 2.5mg dosing. Will continue 1mg today. Zunilda Kennedy Pharm.D., R.Ph., BCPS * Yasmine Garduno M.D., Ph.D. 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 He continues on high dose steroids, 20 mg daily, planned for about 4 weeks. We start him on Bactrim prophylaxis. Colchicine was now increased to 0.6 mg daily, we will watch for any development of diarrhea. PPI was started. We continue with diuresis, we will start metolazone as well. Patient is on warfarin in the setting of mechanical aortic valve and atrial fibrillation. INR 3.5 (his goal INR has been 2-3); pharmacy dosing. He will also continue aspirin, high-intensity statin and metoprolol in the setting of severe CAD. Plan is to follow-up in pericardial Clinic at that time with repeat cardiac MRI and TTE as well as inflammatory markers. The rest of the impression, report and plan as documented by Dr. Gutierrez. * Juan Carlos Gutierrez M.D. - 07/27/2024 1:19 PM CDT CARDIOLOGY 2 SERVICE PROGRESS NOTE ADMISSION DATE: 07/25/2024 at 10:01 AM, today is hospital day 2 SUBJECTIVE Overnight, No acute events At bedside this morning, Patient feels well. Denies any new symptoms. He is breathing well and denies chest pain. He had a bowel movement this morning. OBJECTIVE DIAGNOSTICS Pertinent diagnostics as mentioned above, refer to results tab for more detailed information on diagnostic studies. PHYSICAL EXAMINATION: Constitutional General: He is not in acute distress. Appearance: Normal appearance. He is not ill-appearing, toxic-appearing or diaphoretic. Cardiovascular Rate and Rhythm: Normal rate and regular rhythm. Heart sounds: Normal heart sounds. No murmur heard. No friction rub. No gallop. Comments: Elevated JVD Pulmonary Effort: Pulmonary effort is normal. No respiratory distress. Breath sounds: Normal breath sounds. No stridor. No wheezing, rhonchi or rales. Chest Chest wall: No tenderness. Musculoskeletal Comments: Bilateral lower extremity pitting edema to level of knees Neurological Mental Status: He is alert. ASSESSMENT / PLAN Patient is a 74 y.o. male admit for lower extremity oedema and dyspnoea. Medical history is notablefor previous CABG + DAHIANA ligation + PVI + surgical mechanical AVR Sep 2023 c/b postoperative acute effusive constrictive pericarditis Nov 2023 - treated with colchicine and steroids (steroids tapered off in May 2024, now continues on colchicine). TTE 07/25/2024 showing effusive constrictive pericarditis. Troponins elevated but flat at 109-107-110 - he may have an element of concomitant myopericarditis. Plan to treat with steroids and colchicine with prednisone 40mg QD until next pericardial clinic appointment 4 weeks, where he will have further imaging with TTE and CMRI and discussion re ?pericardiectomy. In the meantime we will continue to diurese the patient. # Postoperative acute effusive constrictive pericarditis Dec 2023 #HFpEF (EF 60% on ECHO 12/2023) #Lower extremity oedema #Dyspnoea + Orthopnoea #Severe s/p surgical mechanical AVR ([facility]) September 2023 #CABG x 1 w/left atrial appendage ligation and pulmonary vein isolation September 2023 Assessment Hemodynamically stable, fluid status improving, significantly volume overloaded. Volume overload 2/2 to HFpEF and constrictive pericarditis Discharged at 87.9 kg 09/2023 after CABG and was felt to be slightly volume overloaded Plan Yesterday: 120 mg and 180 mg IV Lasix with net -830 mL Fluid Goal Today: Net - 2 L 2.5 mg Metolazone followed by IV lasix 120 mg 30 min - 1 hr later Monitoring daily magnesium and potassium with diuresis Target Dry Weight: About 88 kg Continue Prednisone 20mg daily PJP prophylaxis initiated with bactrim 400-80 mg daily Increased to Colchicine 0.6 mg daily If diarrhea --> 0.3 mg daily Aspirin 81 mg daily Continue Metoprolol Succinate 50mg daily Plan for outpatient followup in pericardial clinic in 4 weeks with repeat imaging TTE + CMRI No more daily EKGs needed Warfarin for anticoagulation in setting of mechanical valve. 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 Juan Carlos Gutierrez M.D. * Jack Bustos, D., R.Ph. - 07/27/2024 10:45 AM CDT Warfarin Warfarin Indication: Aortic valve - Mechanical Target INR: 2 - 3 Warfarin Administrations (last 168 hours) Date/Time Action Medication Dose 07/26/24 1813 Given warfarin tablet 2.5 mg (Jantoven) 2.5 mg 07/25/24 1623 Given warfarin tablet 2.5 mg (Jantoven) 2.5 mg INR (no units) Date Value Status 07/27/2024 3.5 Final 07/26/2024 2.7 Final 07/25/2024 2.9 Final 07/24/2024 3.3 Final A/P: Continued on warfarin for Afib and mechanical AV with goal INR 2-3.0. Home dose is 3 mg/day. INR today is 3.5. Warfarin dose of 1 mg ordered for today. Jack Bustos Pharm.D., R.Ph. * Yasmine Garduno M.D., Ph.D. 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 No cardiopulmonary concerns overnight. He was initiated on high dose steroids yesterday and is continuing with prednisone 20 mg daily for around 4 weeks. Plan is to follow-up in pericardial Clinic at that time with repeat cardiac MRI and TTE as well as inflammatory markers. Till then he will continue prednisone 20 mg daily. He is currently also on colchicine 0.3 mg daily. We will continue with the aggressive diuresis. He continues on anticoagulation in the setting of mechanical aortic valve and history of AFib. He also continues on aspirin and high-intensity statin. The rest of the impression, report and plan as documented by Dr. Valencia. * Barbara Valencia M.B., B.Ch. - 07/26/2024 12:57 PM CDT CARDIOLOGY 2 SERVICE PROGRESS NOTE ADMISSION DATE: 07/25/2024 at 10:01 AM, today is hospital day 1 SUBJECTIVE Overnight, No major issues At bedside this morning, Patient feels well. Denies any new symptoms OBJECTIVE DIAGNOSTICS Pertinent diagnostics as mentioned above, refer to results tab for more detailed information on diagnostic studies. PHYSICAL EXAMINATION: Constitutional General: He is not in acute distress. Appearance: Normal appearance. He is not ill-appearing, toxic-appearing or diaphoretic. Cardiovascular Rate and Rhythm: Normal rate and regular rhythm. Heart sounds: Normal heart sounds. No murmur heard. No friction rub. No gallop. Comments: Elevated JVD Pulmonary Effort: Pulmonary effort is normal. No respiratory distress. Breath sounds: Normal breath sounds. No stridor. No wheezing, rhonchi or rales. Chest Chest wall: No tenderness. Musculoskeletal Right lower leg: Edema present. Left lower leg: Edema present. Neurological Mental Status: He is alert. ASSESSMENT / PLAN Patient is a 74 y.o. male admit for lower extremity oedema and dyspnoea. Medical history is notablefor previous CABG + DAHIANA ligation + PVI + surgical mechanical AVR Sep 2023 c/b postoperative acute effusive constrictive pericarditis Nov 2023 - treated with colchicine and steroids (steroids tapered off in May 2024, now continues on colchicine). TTE 07/25/2024 showing effusive constrictive pericarditis. Troponins elevated but flat at 109-107-110 - he may have an element of concomitant myopericarditis. Plan to treat with steroids and colchicine with prednisone 40mg QD until next pericardial clinic appointment 4 weeks, where he will have further imaging with TTE and CMRI and discussion re ?pericardiectomy. In the meantime we will continue to diurese the patient. #Lower extremity oedema #Dyspnoea + Orthopnoea #Severe s/p surgical mechanical AVR ([facility]) September 2023 #CABG x 1 w/left atrial appendage ligation and pulmonary vein isolation September 2023 # Postoperative acute effusive constrictive pericarditis Dec 2023 #HFpEF (EF 60% on ECHO 12/2023) - IV Furosemide 120mg - Continue Prednisone 20mg QD - Continue Colchicine 0.3mg QD - Continue Metoprolol Succinate 50mg QD - Plan for outpatient followup in pericardial clinic in 4 weeks with repeat imaging TTE + CMRI - Daily EKG to assess QRS voltage amplitude - Continue Aspirin 81mg QD - Continue Warfarin Chronic Problems: #T2DM c/b peripheral neuropathy - 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 Lidia Webb., B.Ch. * Jack Bustos PharmRomeo, R.Ph. - 07/26/2024 7:17 AM CDT Pharmacist Progress Note Reason for admission: concern for recurrent constrictive pericarditis PMH: AV stenosis s/p mechanical AV, CAD (CABG), effusive constrictive pericarditis, HFpEF, HTN, HLD, Afib, DM2, CKD 3, stroke. OBJECTIVE Neuro: Stroke - Aspirin, warfarin. Ropinirole 0.5 tid. CV: CAD - aspirin 81 qd, atorvastatin 80 qhs. Afib/mechanical AV - metoprolol XL 50 qd, warfarin. Pericarditis - prednisone 20 qd, colchicine 0.3 qd. Neph: Estimated Creatinine Clearance: 32.4 mL/min (A) (by C-G formula based on SCr of 2.22 mg/dL (H)). BL SCr 2.0. Finasteride, tamsulosin. Endo: DM2 - SSI. PPX: warfarin Medication Reconciliation: Held: glipizide, iron (not taking), torsemide Changed: none New: prednisone Warfarin Warfarin Indication: Aortic valve - Mechanical Other indication (comments): No data recorded Target INR: 2 - 3 Warfarin Administrations (last 168 hours) Date/Time Action Medication Dose 07/25/24 1623 Given warfarin tablet 2.5 mg (Novtoven) 2.5 mg INR (no units) Date Value Status 07/26/2024 2.7 Final 07/25/2024 2.9 Final 07/24/2024 3.3 Final ASSESSMENT / PLAN Recurrent constrictive pericarditis Reinitiated on prednisone at 20 mg daily Continued on colchicine 0.3 mg daily in setting of CKD. Would consider increasing to 0.6 mg daily with close monitoring for diarrhea. Recommend addition of PPI while on prednisone/colchicine/aspirin/warfarin. Afib, mech AV; continued on warfarin with goal INR 2-3.0. Home dose is 3 mg/day. INR today is 2.7. Warfarin dose of 2.5 mg ordered for today. Jack Bustos Pharm.D., R.Ph. * Palomo Varma Pharm.D., R.Ph., [facility] - 07/25/2024 1:50 PM CDT Warfarin Warfarin Indication: Aortic valve - Mechanical Other indication (comments): No data recorded Target INR: 2 - 3 Warfarin Administrations (last 168 hours) None INR (no units) Date Value Status 07/24/2024 3.3 Final A/P: Warfarin continues for mechanical AVR with a goal INR of 2-3. Prior to admission the patient stateshe was taking 3 mg daily. INR 2.9. Given INR on upper end of goal range warfarin dose will be slightly reduced to 2.5 mg today. DEBRA Varma Pharm.D., R.Ph., [facility] * Palomo Varma Pharm.D., R.Ph., [facility] - 07/25/2024 1:47 PM CDT Images from the original note were not included. Admission Medication History Note Adherence issues: No concerns Medication list source: Patient Medication related information: Patient endorses taking warfarin 3 mg daily with the last dose 07/24 Prior to Admission Medications Med List Status: Pharmacy Complete Set By: Palomo Varma Pharm.D., R.Ph., BCCP at 41:42 PM Taking? Last Dose Informant Start Date End Date LT acetaminophen (TYLENOL) 500 mg tablet -- -- -- -- Take 1,000 mg by mouth every 6 (six) hours as needed for pain. aspirin 81 mg chewable tablet -- -- 09/26/23 09/25/24 Chew 1 tablet (81 mg total) daily. atorvastatin (LIPITOR) 80 mg tablet -- -- 09/26/23 09/25/24 Take 1 tablet (80 mg total) by mouth at bedtime. cholecalciferol 10 mcg (400 Unit) tablet -- -- -- -- Take 10 mcg by mouth daily. colchicine (COLCRYS) 0.6 mg tablet -- -- 02/19/24 -- Take 0.5 tablets (0.3 mg total) by mouth daily. cyanocobalamin 2,000 mcg tablet -- -- -- -- Take 2,000 mcg by mouth daily. finasteride (PROSCAR) 5 mg tablet -- -- 09/26/23 -- Take 1 tablet (5 mg total) by mouth daily. glipiZIDE (GLUCOTROL XL) 2.5 mg 24 hr tablet -- -- 09/26/23 -- Take 1 tablet (2.5 mg total) by mouth daily with breakfast. Patient taking differently: Take 5 mg by mouth daily with morning meal. iron,carbonyl-vitamin C (VITRON-C) 65 mg iron- [address] tablet -- -- 01/01/24 12/31/24 Take 1 tablet (65 mg of iron total) by mouth daily. Do not crush or chew. Notes: Not taking metoprolol succinate (TOPROL-XL) 50 mg 24 hr tablet -- -- 12/20/23 -- Take 1 tablet by mouth daily. rOPINIRole (REQUIP) 0.5 mg tablet -- -- 09/26/23 -- Take 1 tablet (0.5 mg total) by mouth 3 (three) times a day. tamsulosin (FLOMAX) 0.4 mg 24 hr capsule -- -- 09/26/23 -- Take 1 capsule (0.4 mg total) by mouth at bedtime. torsemide (DEMADEX) 20 mg tablet -- -- 11/29/23 -- Take 40 mg by mouth daily. warfarin (JANTOVEN) 1 mg tablet 07/24/2024 -- 10/31/23 -- Take per Anticoagulation Clinic Patient taking differently: Take 3 mg by mouth daily. Take per Anticoagulation Clinic Notes: 2 mg daily * Jana Allen R.N., C.W.C.N. - 07/25/2024 1:42 PM CDT WOC Wound RN consulted to assess Jong Harris skin alterations. Wound assessment, pain, and Piter score noted in the flowsheet. The patient verbally consented to photography of the affected area for clinical trending purposes. Images were taken and are available in QREADS. History: Per provider note, Mr. Harris, 74 y.o., is being evaluated in the ED for leg swelling. Past medical history significant for but not limited to mechanical aortic valve replacement with CABGx1 along with left atrial appendage ligation and MAZE procedure 09/2023, diabetes type 2, CKD, stroke 2018, PAF, hypertension, hyperlipidemia and anemia of chronic disease. Assessment: Patient assessed in the chair with provider present and family member. Upon assessment patient has 2+ pitting edema to bilateral lower legs. The right lower legs as a few scattered, smallintact serous filled blisters, with a small scab to the posterior side. The left lower leg has scattered partial thickness wounds circumferential, the wound beds are red and pink, small serous drainage. Unable to palpate pulses at this time. Most likely this is a result from fluid overload and edema to the lower legs. 07/25/24 1250 Wound 07/25/24 Other Moisture Associated Skin Damage Leg Bilateral;Circumferential;Lower scattered open wounds Date First Assessed/Time First Assessed: 07/25/24 1250 Present on Original Admission: Yes Wound Approximate Age at First Assessment: Unknown Primary Wound Type: Other Moisture Associated Skin Damage Location: Leg Wound Location Orientation: Bila... 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 Yes Focused assessment completed as patient was sitting in chair with primary completing assessment. RNreported no other concerns. DRESSING RECOMMENDATIONS: #1 Moisture Associated Skin Damage Bilateral Lower Legs Circumferential -Cleanse the wound with Vashe wound cleanser and 4x4 gauze. Pat dry. -Place 3D Biomatrixel Ag and cut to slightly larger than the wound, to ensure it comes into contact with the entire wound bed. Change once daily. -Cover with 4x4 gauze. -Change once daily and PRN. RN to apply Bilateral Compression wraps per the lower extremity algorithm. Recommended interventions for pressure redistribution and shear reduction: Offload heels on pillows at all times when in bed. Full 30 degree turns side to side every 2 hours with supine positioning only for meals. Reposition at least every hour while in the chair. Keep the HOB below 30 degrees except for meals unless medically contraindicated. Apply a prophylactic sacral Mepilex?? border dressing to cover the coccyx/sacral area. Ensure the dressing is in full contact with the skin to prevent moisture- related skin breakdown. Lift twice daily to assess when used for prevention. Change every 3 days and PRN. Utilize padding (Artiflex or Rosidal foam) under compression wraps. Utilize an Equagel cushion when in the chair. Recommended interventions for moisture control: NA Consult recommendations: NA Education: Discussed the plan of care with the patient and nursing. They agree to the plan. The WOC RN will continue to see the patient, contact or reconsult for worsening wounds or new wounds. Electronically signed by: Jana Allen R.N., [email or web address]. 07/25/24 1:44 PM CDT * Josee Devlin P.A.-C., M.S. - 07/25/2024 7:37 AM CDT Emergency Department Progress Note Assumed care of the patient. Interval History: Since last evaluation Mr. Harris has had *Uneventful course to date * Serial ECG's * Serial cardiac markers * Cardiac monitoring * Awaiting cardiology consult to advise next steps in management Josee Devlin P.A.-C., M.S. 07/25/24 0737 documented in this encounter H&P Notes * Yasmine Garduno M.D., Ph.D. - 07/25/2024 8:28 PM CDT This is a supervisory note. I evaluated Mr. Harris with Dr. Valencia and Cardiology 2 team. I agree with the history of present illness, past medical, surgical, social and family histories, as well as allergies, medications and review of systems as documented. I agree with the physical examination, assessment and plan as documented by Dr. Valencia in addition to what I have documented below. I also performed a history and physical examination of the patient and discussed his/her management with Dr. Valencia. HISTORY OF PRESENT ILLNESS Mr. Harris is a pleasant 74 yo M admitted to Cardiology 2 service due to concerns for recurrent constrictive pericarditis. His cardiac history is significant for mechanical aortic valve replacement and CABG x1, September 2023. 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 In addition he has history of HFpEF,atrial fibrillation on anticoagulation, type 2 diabetes, CKD stage IIIB, stroke in 2019. Regarding the effusive constrictive pericarditis, cardiac MRI performed December 2023 showed activeeffusive constrictive pericarditis with mildly constrictive physiology, small pericardial effusion.Thereafter patient was started on colchicine and steroids. With prolonged taper. He has been doing well until May when he completed the steroids, when he started to note worsening lower extremity edema and dyspnea. Patient presented to the Emergency Department with worsening lower extremity edema, which has been progressively worsening since May, when he finished prednisone therapy. This has been worsening despite increasing doses of diuretics at home. He also notes presence of exertional dyspnea, orthopnea, paroxysmal nocturnal dyspnea, dry cough. He denies presence of chest pain. At home he has been on colchicine 0.3 mg daily due to CKD. He was unable to tolerate NSAIDs due to CKD. In addition patient has been on baby aspirin, high- intensity statin, metoprolol, torsemide and warfarin. He was prescribed spironolactone but has not been taking it. PHYSICAL EXAMINATION BP 115/71 (BP Location: Left arm;Upper, Patient Position: Sitting) Pulse 76 Temp 36.5 ??C (Oral) Resp 21 Ht 169 cm Wt 93.4 kg SpO2 97% BMI 32.70 kg/m?? 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 These findings were also evident on a transthoracic echocardiogram, with presence of respirophasic ventricular septal shift, thickened pericardium, Doppler evidence of respiratory dependent changes in the tricuspid inflow, there were also intermittent expiratory diastolic flow reversals in the hepatic veins and minimal variation in SVC flow. IVC is dilated. Annulus reversus is not yet present, medial and lateral e' of 0.07 m/sec. No pericardial effusion present. This is a challenging presentation, as patient already completed quite a prolonged prednisone taper. I discussed the patient's presentation with Dr. Mon from our Pericardial team. We are certainly concerned about possible need for future pericardiectomy. Due to CRP elevation of 6.1, and echocardiographic features of constrictive pericarditis, we will reinstitute prednisone but at higher doses for longer period of time. He may have a component of myopericarditis, considering the elevated but flat troponins ([phone]). Treatment would still be with steroids and colchicine. We will initiate p rednisone 20 mg daily for the next 4 weeks and continue colchicine 0.3 mg daily. We will discuss with pharmacy whether there would be significant risk going with 0.6 mg daily, as the colchicine couldbe stopped if he was to develop diarrhea. We will arrange him a follow-up in pericardial Clinic in 4 weeks, with a repeat TTE and repeat cardiac MRI, and inflammatory markers. Till then he will continue on prednisone 20 mg daily. Continue to monitor him on telemetry for any arrhythmia. 12 lead ECG shows NSR with low voltage. Patient has large left pleural effusion and we will continue with aggressive diuresis. We will continue anticoagulation in the setting of mechanical aortic valve and history of AFib. We will also continue aspirin and high-intensity statin. Will recheck/monitor his anemia and new thrombocytopenia. We appreciate the input from wound care. The remainder of the impression and plan are as documented by Dr. Valencia. Yasmine Garduno M.D., Ph.D. 07/25/2024 * Barbara Valencia M.B., B.Ch. - 07/25/2024 11:23 AM CDT CARDIOLOGY INPATIENT ADMISSION NOTE CHIEF COMPLAINT/REASON FOR VISIT Admit for LE oedema + dyspnoea BACKGROUND Patient is a 74 y.o. male admit for constrictive pericarditis . 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 MRI findings consistent with active effusive constrictive pericarditis with mildly constrictive physiology. 2. Small fibrinous loculated pericardial effusion, predominantly along the lateral and inferior aspects of the left ventricle. 3. Normal biventricular chamber size and function. 4. Large bilateral pleural effusions. Small amount of abdominal ascites. 12/24/2023 TTE: 1. Findings suggestive of pericardial disease. See comments. 2. Status post 23 mm On-X mechanical aortic valve prosthesis, CABG x1, PVI, and DAHIANA amputation (19-SEP-2023, [place]). 3. Normal left ventricular chamber size, calculated [...] coagulated/fibrinous thickened fluid). 9. Left pleural effusion. HISTORY OF PRESENT ILLNESS Patient presents with progressively worsening lower extremity swelling that started in May and hasbecome progressively worse despite increases in his torsemide dose. He also endorses increasing shortness of breath and a dry cough which is worse when lying flat. He was diagnosed with post-operative effusive constrictive pericarditis Dec 2023 and started on steroids + colchicine, with the steroids being tapered off in May. His symptoms particularly worsened after this taper. Denies fevers/abdominal pain/nausea/vomiting. No recent travel. He reports a recent viral illness. In the ED, he was vitally stable with BP 118/68, RR 20, HR 76, and SpO2 97% OA. Labs were remarkable for elevated NT-Pro BNP of 4826, and Troponins were elevated but non-dynamic at 109 > 107. EKG notable for low voltage QRS complexes. CXR showed small-moderate left and trace right pleural effusions with compressive atelectasis in the left lung base. He received IV lasix 80mg. Cardiology was consulted and recommended admission. SOCIAL HISTORY reports that he has never smoked. He has never used smokeless tobacco. He reports current drug use.Drug: Other. He reports that he does not drink alcohol. FAMILY HISTORY Family History Problem Relation Name Age of Onset Lymphoma Mother Carmen Heart disease Father No Known Problems Sister Alzheimer's disease Brother No Known Problems Brother Diabetes Maternal Grandfather Heart attack Maternal Grandfather age 60s Prostate cancer Paternal Grandfather Bicuspid aortic valve Daughter Bicuspid aortic valve Son AVR - Aortic valve replacement Son OBJECTIVE DIAGNOSTICS Pertinent diagnostics as mentioned above, refer to results tab for more detailed information on diagnostic studies. PHYSICAL EXAMINATION General: Mr. Harris is a 74 y.o. male. Heart: Regular rate and rhythm, Mechanical heart valve sounds noted. No murmur rub or gallop. Good peripheral pulses. Peripheral extremity edema: significant bilateral lower extremity oedema. JVD: Elevated to the mandible. Lungs: Clear to auscultation bilaterally and throughout. On room air. No cough. Abdomen: Soft, distended, non-tender to palpation throughout. No rebound tenderness, guarding. Positive bowel sounds. Mild shifting dullness MSK: No erythema/tenderness of the bilateral lower limbs. Skin breaks noted on posterior R lower leg -draining serosanguinous fluid but no purulence Mental: Alert and oriented to person place time and situation. Good historian. Skin: Warm, dry, color normal for race. Grossly intact. ENT: Mucous membranes moist, no oral lesions. ASSESSMENT / PLAN Patient is a 74 y.o. male admit for lower extremity oedema and dyspnoea. Medical history is notablefor previous CABG + DAHIANA ligation + PVI + surgical mechanical AVR Sep 2023 c/b postoperative acute effusive constrictive pericarditis Nov 2023 - treated with colchicine and steroids (steroids tapered off in May 2024, now continues on colchicine). His symptoms primarily began to worsen after he was tapered off the steroids. TTE showing constrictive pericardial disease and restrictive cardiomyopathy - this is likely the cause of his signs and symptoms. Discussion with pericardiocentesis team - patient will be restarted on steroids, query needfor pericardiectomy in the future, although from an operative standpoint this may be difficult withhis CKD. We will aim to diurese with IV lasix in the meantime. Troponins are elevated at 120 but flat. This is above his baseline last year which was 11. Query element of myopericarditis however less likely if CRP and ESR not significantly elevated. Will repeat troponins tomorrow. 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 07/25/24 * Fanny Goodwin M.D., M.S. - 07/24/2024 8:53 PM CDT Emergency Department Observation H&P SUBJECTIVE CHIEF COMPLAINT/ REASON FOR VISIT The patient's chief complaint includes: Leg Swelling HISTORY OF PRESENT ILLNESS Mr. Harris is a 74 y.o. male who presents with shortness of breath and leg swelling. [facility] further documentation in support of observation status. OBJECTIVE VITAL SIGNS Temperature: 36.8 ??C Heart Rate: 75 Resp Rate: 25 Blood Pressure: 111/72 SpO2: 97 % Weight: 95.2 kg DIAGNOSTICS I have reviewed laboratory, imaging, and other diagnostic studies. Clinically significant abnormal findings are as noted in the chart and emergency department note. ASSESSMENT / PLAN Jong will need additional care based on his work up and will be admitted as ED observation. OBSERVATION TREATMENT PLAN: Possible CHF exacerbation. IV lasix, cardiology consultation. Anticipate discharge home with outpatient follow up. Fanny Goodwin M.D., M.S. 07/24/24 [id number] documented in this encounter Consult Notes * Vipul Garcia P.A.-C. - 07/29/2024 11:07 AM CDTAssociated Order(s): Diabetes consult (hospital) SUBJECTIVE Diabetes consult (hospital) Referring Provider: Yasmine Garduno M.D., Ph.D. CHIEF COMPLAINT/REASON FOR CONSULT Patient seen today for blood glucose management. The patient was admitted on 07/24/2024 for Edema Leg HISTORY OF PRESENT ILLNESS DIABETES HISTORY: History of diabetes mellitus, type 2 Diagnosed 2011. PREADMISSION DIABETES THERAPY: Glipizide XL 5 milligrams daily Patient reports that he has been on metformin in the past but this was discontinued most likely in the setting of his renal function. He also trialed Ozempic for short period of time. He is unclear why Ozempic was discontinued GLUCOSE MONITORING: Has not been monitoring as he ran out of strips. When he was monitoring typically once a day in themorning with glucoses less than 120. HYPOGLYCEMIA: Patient denies episodes of hypoglycemia. DIABETES COMPLICATIONS/CO-MORBIDITIES: AVR, CAD, CABG, Pericarditis, HFpEF, CKD 3, Stroke, HTN, , HLD, Peripheral neuropathy, Paroxysmal afib. DIET: Eats 2 meals a day. Typically breakfast in an early or late supper. WEIGHT: Patients weight has been stable. ACTIVITY: No regular exercise. SCREENING: Last dilated eye exam up-to-date. FAMILY HISTORY Family history of diabetes mellitus includes maternal grandfather HOSPITAL COURSE: Past 24 Hour Blood Glucose Readings: Recent Labs 07/29/24 0739 07/29/24 0738 07/28/243 07/28/24 1735 07/28/24 1200 GLUCOSEPOC 106 -- 271 H 187 H 148 H GLUCOSE -- 104 -- -- -- Yesterday received NPH 10 units in the morning and 10 units in the evening. NovoLog 14 units total for the correction hyperglycemia STEROIDS: Prednisone 20 milligrams Current Diet Adult Diet Regular; 1500 mL Fluid; Cardiovascular starting at 07/27 0959 REVIEW OF SYSTEMS Pertinent items are noted in History of Present Illness. PREADMISSION MEDICATION: Diabetes medication(s) were reconciled on 07/29/2024. OBJECTIVE VITAL SIGNS Temperature: 36.7 ??C Heart Rate: 66 Resp Rate: 18 Blood Pressure: 129/73 BP Location: Left arm;Upper SpO2: 96 % BMI (Calculated): 31.4 kg/m?? Height: 169 cm Weight: 89.7 kg Body mass index is 31.41 kg/m??. PHYSICAL EXAMINATION Constitutional Appearance: Normal appearance. He is obese. Pulmonary Effort: Pulmonary effort is normal. Neurological Mental Status: He is alert and oriented to person, place, and time. Psychiatric Behavior: Behavior normal. DIAGNOSTICS I have reviewed relevant diagnostics and labs. Lab Results Component Value Date HGBA1C 7.5 (H) 07/29/2024 Estimated Creatinine Clearance: 26.1 mL/min (A) (by C-G formula based on SCr of 2.71 mg/dL (H)). Lab Results Component Value Date CREATININE 2.71 (H) 07/29/2024 ASSESSMENT / PLAN #1 Diabetes mellitus, type 2, preadmission euglycemia, A1c 7.5% July 29, 2024 CKD stage 3 , peripheral neuropathy #2 Hyperglycemia in the setting of steroids #3 Concerns for recurrent constrictive pericarditis #4 Lower extremity edema #5 CAD status post CABG October 01, 2023 #6 Hypertension #7 Hyperlipidemia #8 Prior stroke INPATIENT PLAN: - Blood Glucose Monitoring: four times daily before meals and bedtime - Glucose Goal: 140-180 mg/dL. - Basal: NPH 10 units with breakfast and 10 units with dinner.. - Mealtime: None. Will continue to assess if mealtime insulin is needed. - Correction Scale: NovoLog moderate correction scale three times a day will change correction scale at bedtime 2 modified instead of moderate. - DCS will evaluate and adjust insulin doses as indicated to achieve glycemic goal. - Consults: Diabetes Educators - Hold oral diabetes medications ANTICIPATED DISMISSAL PLAN: Reviewed options with patient. He is on glipizide at home. His insulin requirements are above 30 units per day here in the hospital in the setting of steroids. He plans to continuous steroids for at least 4 more weeks and may need taper following that. Safest option is to initiate insulin (NPH either once a day or twice a day). Dose can be titrated down as steroids weaned off. Once completely offsteroids he can stop insulin and resume glipizide. Blood Glucose Frequency: twice daily Goal: 120-180 mg/dL, higher goal due to comorbidities Please page DCS within 24 hours prior to hospital dismissal for final dismissal recommendations. Discussed above plan with the patient. Patient is alert and oriented. Thank you for the consult. DCS pager [phone] will follow. Call primary service for diabetes concerns between 6:30 p.m. and 6:30 a.m. Primary service to contact contract management specialist Endocrinology fellow via hospital lift operator for questions. * Benji Pizano M.D. - 07/25/2024 6:58 AM CDTAssociated Order(s): IP CONSULT TO CARDIOLOGY CARDIOLOGY CONSULT NOTE ED Requesting Rehabilitation Physician: Haily Campbell APRN Cardiology Collaborating RN: Karen Scott Primary Care Provider: Dr. Napier CHIEF COMPLAINT/REASON FOR VISIT Leg swelling HISTORY OF PRESENT ILLNESS Mr. Harris, 74 y.o., is being evaluated in the ED for leg swelling. Past medical history significant for but not limited to mechanical aortic valve replacement with CABG x1 along with left atrial appendage ligation and MAZE procedure 09/2023, diabetes type 2, CKD, stroke 2018, PAF, hypertension, h yperlipidemia and anemia of chronic disease. Mr. Harris reports lower extremity swelling starting in May and progressively becoming worse even after increasing Torsemide dosing. He denies chest pain or palpitations but does endorse shortnessof breath and a dry cough when he lies down. He went to his primary care physician who recommended ED evaluation for diuresis. In the ED, NT-Pro BNP was 4826. Troponins elevated with no significant delta at 109, 107, 110. He was given 80 intravenous Lasix. PAST MEDICAL HISTORY Severe aortic stenosis status post mechanical AVR, 09/2023 CABG x1 with reverse saphenous vein from aorta to PDA Left atrial MAZE ablation Left atrial appendage amputation Hypertension Hyperlipidemia Chronic kidney disease stage 3 Stroke 2019 Paroxysmal atrial fibrillation Anemia of chronic disease Diabetes Mellitus type 2 REVIEW OF SYSTEMS A comprehensive review of systems was completed; pertinent abnormalities are included in the HPI, all other systems negative. CARDIAC RISK FACTORS - Age: - Gender: - Hyperlipidemia: - Hypertension: - Diabetes Mellitus Type II: - Overweight/obese: Body mass index is 31.48 kg/m??., - Prior coronary artery disease: ALLERGIES No Known Allergies HOME MEDICATIONS Current Medications: acetaminophen (TYLENOL) 500 mg tablet, Take 1,000 mg by mouth every 6 (six) hours as needed for pain. aspirin 81 mg chewable tablet, Chew 1 tablet (81 mg total) daily. atorvastatin (LIPITOR) 80 mg tablet, Take 1 tablet (80 mg total) by mouth at bedtime. cholecalciferol 10 mcg (400 Unit) tablet, Take 10 mcg by mouth daily. colchicine (COLCRYS) 0.6 mg tablet, Take 0.5 tablets (0.3 mg total) by mouth daily. cyanocobalamin 2,000 mcg tablet, Take 2,000 mcg by mouth daily. finasteride (PROSCAR) 5 mg tablet, Take 1 tablet (5 mg total) by mouth daily. glipiZIDE (GLUCOTROL XL) 2.5 mg 24 hr tablet, Take 1 tablet (2.5 mg total) by mouth daily with breakfast. (Patient taking differently: Take 5 mg by mouth daily with morning meal.) iron,carbonyl-vitamin C (VITRON-C) 65 mg iron- [address] tablet, Take 1 tablet (65 mg of iron total) by mouth daily. Do not crush or chew. metoprolol succinate (TOPROL-XL) 50 mg 24 hr tablet, Take 1 tablet by mouth daily. predniSONE (DELTASONE) 5 mg tablet, Take 1 tablet (5 mg total) by mouth daily. rOPINIRole (REQUIP) 0.5 mg tablet, Take 1 tablet (0.5 mg total) by mouth 3 (three) times a day. spironolactone (ALDACTONE) 25 mg tablet, Take 1 tablet by mouth daily. (PT NOT TAKING) tamsulosin (FLOMAX) 0.4 mg 24 hr capsule, Take 1 capsule (0.4 mg total) by mouth at bedtime. torsemide (DEMADEX) 20 mg tablet, Take 40 mg by mouth daily. warfarin (JANTOVEN) 1 mg tablet, Take per Anticoagulation Clinic SOCIAL HISTORY No tobacco or alcohol. Lives with significant other. Family History Family History Problem Relation Name Age of Onset Lymphoma Mother Carmen Heart disease Father No Known Problems Sister Alzheimer's disease Brother No Known Problems Brother Diabetes Maternal Grandfather Heart attack Maternal Grandfather age 60s Prostate cancer Paternal Grandfather Bicuspid aortic valve Daughter Bicuspid aortic valve Son AVR - Aortic valve replacement Son VITAL SIGNS Temperature: [36.8 ??C] 36.8 ??C Heart Rate: [70-87] 75 Resp Rate: [16-34] 21 Blood Pressure: (111-153)/(67-125) 124/76 SpO2: [76 %-99 %] 95 % Weight: [95.2 kg] 95.2 kg Pulse Rate: [70-80] 77 EXAM General: Comfortable sitting in bed Vessels: JVP at angle of jaw sitting upright, prominent X and Y descent Heart: Regular rate no murmurs rubs or gallops no pericardial knock Lungs: Dullness left base with decreased breath sounds Abdomen: Liver edge palpable with inspiration Extremities: Marked anasarca to level of the hips bilaterally Skin: Superficial ulceration medial malleolar area with mild erythema around it DIAGNOSTICS ECG 12 Lead Result Date: 07/24/2024 Normal sinus rhythm Low voltage QRS in limb leads Low anterior forces Nonspecific ST and T wave abnormality When compared with ECG of 24-Dec-2023 10:12, No significant change was found Revised Report 07/24/2024 Chest Xray: No significant change since the outside radiograph dated 06/04/2024. Small-moderate left and trace right pleural effusions with compressive atelectasis in the left lung base. No discernible pneumothorax. No new focal consolidation. Stable prominent cardiac silhouette. Azygos fissure. Sternotomy. Mediastinal surgical clips. Aortic calcifications. Loop recorder. Cardiac valve prosthesis. Hypertrophic degenerative changes of the spine. Recent Results (from the past 24 hour(s)) Basic Metabolic Panel Collection Time: 07/24/24 5:20 PM Result Value Potassium, P 4.1 Sodium, P 143 Chloride, P 103 Bicarbonate, P 28 Anion Gap, P 12 BUN (Blood Urea Nitrogen), P 32 (H) Creatinine 2.03 (H) Estimated GFR (eGFR) 34 (L) Calcium, Total, P 9.3 Glucose, P 159 (H) CBC with Differential, Blood Collection Time: 07/24/24 5:20 PM Result Value Hemoglobin 12.1 (L) Hematocrit 38.0 (L) Erythrocytes 4.12 (L) MCV 92.2 RBC Distrib Width 15.1 (H) Platelet Count 126 (L) Leukocytes 5.2 Neutrophils 3.70 Lymphocytes 0.80 (L) Monocytes 0.56 Eosinophils 0.09 Basophils <0.03 NT-Pro B-Type Natriuretic Peptide (BNP) Collection Time: 07/24/24 5:20 PM Result Value NT-Pro BNP 4826 (H) Troponin T, Baseline with 2 Hour/6 Hour Reflex Biomarker Panel Collection Time: 07/24/24 5:20 PM Result Value Troponin T, Baseline, 5th gen 109 (H) Prothrombin Time (PT) Collection Time: 07/24/24 5:20 PM Result Value Prothrombin Time, P 37.0 (H) INR 3.3 Troponin T, 2 Hour with 6 Hour Reflex, 5th Gen Collection Time: 07/24/24 7:28 PM Result Value Troponin T, 2 hr, 5th gen 107 (H) 2H Delta % -2 2H Delta Interp Not Changing Troponin T, 6h, 5th Gen Collection Time: 07/24/24 11:51 PM Result Value Troponin T, 6 hr, 5th gen 110 (H) 6H Delta % 1 6H Delta Interp Not Changing Basic Metabolic Panel Collection Time: 07/24/24 11:51 PM Result Value Potassium, P 3.8 Sodium, P 142 Chloride, P 104 Bicarbonate, P 29 Anion Gap, P 9 BUN (Blood Urea Nitrogen), P 33 (H) Creatinine 2.15 (H) Estimated GFR (eGFR) 32 (L) Calcium, Total, P 8.8 Glucose, P 177 (H) Basic Metabolic Panel Collection Time: 07/25/24 4:07 AM Result Value Potassium, S 3.7 Sodium, S 143 Chloride, S 106 Bicarbonate, S 28 Anion Gap 9 BUN (Blood Urea Nitrogen), S 33 (H) Creatinine 2.22 (H) Estimated GFR (eGFR) 31 (L) Calcium, Total, S 8.9 Glucose, S 117 PRIOR CV TESTIN12/25/2023 Cardiac MRI: 1. MRI findings consistent with active effusive constrictive pericarditis with mildly constrictive physiology. 2. Small fibrinous loculated pericardial effusion, predominantly along the lateral and inferior aspects of the left ventricle. 3. Normal biventricular chamber size and function. 4. Large bilateral pleural effusions. Small amount of abdominal ascites. 12/24/2023 TTE: 1. Findings suggestive of pericardial disease. See comments. 2. Status post 23 mm On-X mechanical aortic valve prosthesis, CABG x1, PVI, and DAHIANA amputation (19-SEP-2023, [facility]). 3. Normal left ventricular chamber size, calculated [...] coagulated/fibrinous thickened fluid). 9. Left pleural effusion. 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 Cardiology Collaborating Provider: Dr. Pizano documented in this encounter Nursing Notes * Sally Shafer RMihir. - 08/01/2024 1:34 PM CDT RN reviewed AVS with pt; pt verbalized understanding and denied any questions. Pt discharged by wheelchair escort to home self care. documented in this encounter ED Notes * Ryan Sharpe - 07/24/2024 8:25 PM CDT SUBJECTIVE CHIEF COMPLAINT/REASON FOR VISIT Leg Swelling HISTORY OF PRESENT ILLNESS This is a 74 yo M who's known to have mechanical aortic valve, CKD, and Hx of stroke. He came complaining of bilateral leg swelling and dyspnea that have been present for a few weeks. The swelling is now up to the mid-thigh and the dyspnea is getting worse and that's what made him come to the ED. There is no chest pain, headache, weakness, N/V, fever, abdominal pain, change in bowel movements or urinary symptoms. REVIEW OF SYSTEMS OBJECTIVE Initial Vitals Temperature 07/24/24 1704 36.8 ??C Pulse Rate 07/24/244 76 Heart Rate 07/24/241944 72 Resp Rate 07/24/241703 20 Blood Pressure 07/24/244 118/68 SpO2 07/24/241703 97 % Pain Score 07/24/241945 0 - No pain PHYSICAL EXAMINATION He has bilateral lower limb pitting edema extending to his mid-thigh Constitutional: Vital signs are normal. Eyes: Pupils are equal, round, and reactive to light. Cardiovascular: Normal rate, intact distal pulses and normal pulses. Pulses are strong and palpable. Capillary refill: takes less than 3 seconds Abdominal: Soft. Normal appearance. There is no abdominal tenderness. Neurological: Alert and oriented to person, place, and time. He has normal sensation and normal strength. GCS eye subscore is 4. GCS verbal subscore is 5. GCS motor subscore is 6. Normal speech. ASSESSMENT/PLAN Seen with Dr. Goodwin. Patient tolerated walking and ambulation without getting hypoxic. He is now put under observation and is receiving IV diuretics, with the plan to see cardiology in the morning. ED Course as of 07/24/242058 Carissa Jul 24, [id number] ECG 12 Lead 2058 DX Chest AP or PA and Lateral 2 Views No significant change since the outside radiograph dated 06/04/2024. Final Diagnoses: as of 07/24/242058 Edema Leg Shortness Of Breath Effusion Pleural Dell, Hamsa 07/24/242058 * Fanny Goodwin M.D., M.S. - 07/24/2024 7:45 PM CDT SUBJECTIVE CHIEF COMPLAINT/REASON FOR VISIT Leg Swelling HISTORY OF PRESENT ILLNESS History provided by: Patient, medical records and relative This is a 74 yo M with a h/o HTN, HLD, DM2, CKD, CAD, A-fib on coumadin, who presents for evaluation of shortness of breath and leg swelling. This has been slowly progressively worsening for quite some time now. No associated chest pain. He does have a dry cough, no fever. No abdominal pain, nausea, or vomiting. Patient states that he was diagnosed with pericarditis earlier this year and was treated with prednisone and colchicine. He was tapered off of the prednisone in May and continued on the colchicine. He feels the symptoms started to get particularly worse after he tapered off of the prednisone. Also states that he had transitioned from Lasix to torsemide because he was getting up to urinate at night too many times, and while this did seem to help with nocturia, he is not certain that it made any effect on his overall edema or shortness of breath. Patient states that he did doublehis dose of torsemide for 1 week recently and did not note any change in his swelling or symptoms. Patient reports shortness of breath primarily with activity, sometimes with talking. REVIEW OF SYSTEMS Constitutional: Negative for fever. Respiratory: Positive for cough and shortness of breath. Cardiovascular: Positive for leg swelling. Negative for chest pain. Gastrointestinal: Negative for diarrhea, nausea and vomiting. OBJECTIVE Initial Vitals Temperature 07/24/24 1704 36.8 ??C Pulse Rate 07/24/24 1704 76 Heart Rate -- Resp Rate 07/24/24 1704 20 Blood Pressure 07/24/24 1704 118/68 SpO2 07/24/24 1704 97 % Pain Score 07/24/24 1946 0 - No pain PHYSICAL EXAMINATION Constitutional: Nursing note and vitals reviewed. No distress. HENT: Mouth/Throat: Mucous membranes are moist. Eyes: Conjunctivae are normal. Neck: No tracheal deviation present. Cardiovascular: Normal rate, regular rhythm and normal peripheral perfusion. No murmur heard.Edema: edema noted (2+, bilateral, symmetric) Pulmonary/Chest: Effort normal and breath sounds normal. There is normal air entry. No respiratory distress. He has no wheezes. He has no rhonchi. Abdominal: Soft. exhibits no distension. There is no abdominal tenderness. There is no guarding. Neurological: Alert and oriented to person, place, and time. Skin: Skin is warm and dry. Psychiatric: He has a normal mood and affect. Behavior is normal. ASSESSMENT/PLAN This is a 74-year-old male presents for evaluation of progressively worsening dyspnea on exertion and lower extremity swelling over the last weeks to months. He is nontoxic-appearing and afebrile. Hehas no acute respiratory distress. His physical exam is notable for bilateral lower extremity pitting edema, otherwise unremarkable. On review of the record his last echocardiogram was in December of 2023 which demonstrated an ejection fraction of 60%. Primary concern at this time is for congestiveheart failure versus renal failure versus less likely ACS or GA. Also considered pleural effusion, pneumonia, or viral respiratory illness. . Labs obtained in triage are notable for elevated but flat troponins in the setting of chronic kidney disease with a creatinine at his baseline of 2. Elevated BNP at about 5000, and a chest x-ray withsmall left and trace right pleural effusions, no evidence of pneumonia. . Patient was able to ambulate in the emergency department without difficulty or hypoxia. I think he is a good candidate for observation in the [facility] with diuresis and cardiology consultation in the morning. Patient and family are in agreement with this plan. ED Course as of 07/24/242100 Carissa Jul 24, [id number] ECG 12 Lead Sinus rhythm at 73, normal intervals, no STEMI criteria, ED physician interpretation. 1946 DX Chest AP or PA and Lateral 2 Views IMPRESSION: No significant change since the outside radiograph dated 06/04/2024. Small- moderate left and trace right pleural effusions with compressive atelectasis in the left lung base. No discernible pneumothorax. No new focal consolidation. Stable prominent cardiac silhouette. Azygos fissure. Sternotomy. Mediastinal surgical clips. Aortic calcifications. Loop recorder. Cardiac valve prosthesis. Hypertrophic degenerative changes of the spine. 1946 Leukocytes: 5.2 1946 Creatinine(!): 2.03 baseline 1946 INR: 3.3 1946 NT-Pro BNP(!): 4826 Baseline is 5000 1946 Troponin T, Baseline, 5th gen(!): 109 1946 INR: 3.3 2012 Troponin T, 2 hr, 5th gen(!): 107 2012 2H Delta %: -2 2012 2H Delta Interp: Not Changing 2054 Patient ambulatory without difficulty or assistance, no hypoxia with ambulation. Stable and appropriate for EDOU. Final Diagnoses: as of 07/24/242100 Edema Leg Shortness Of Breath Effusion Pleural I saw the patient with the medical student. I was present for or re-performed the History of Present Illness. I personally performed a Physical Exam and Medical Decision Making. I reviewed medical student documentation and agree or amended. Fanny Goodwin M.D., M.S. 07/24/24 7229 * Emerson Burns D.N.P., R.N. - 07/24/2024 5:04 PM CDT Patient comes in with shortness of breath and lower extremity edema, worsening over the past few days. History of Aortic valve replacement (mechanical), with pericarditis complication. Since valve replacement, has suffered heart failure. Also significant CKD. His PCP at [facility] was unable to get him admitted due to lack of beds, and referred him to our ED. Patient is dyspneic, with pitting edema to upper thighs. Some abdominal firmness. Mechanical heart sound, otherwise no obvious murmur. Vitals stable. Denies chest pain. Emerson Burns D.N.P., R.N. 07/24/24 1708 documented in this encounter Miscellaneous Notes * Documentation Clarification - Barbara Valencia M.B., B.Ch. - 07/28/2024 8:18 AM CDT PROVIDER RESPONSE TEXT: To clarify, the appropriate diagnosis supported by the clinical indicators: Acute on chronic HFpEF QUERY TEXT: Clarification DOCUMENTATION CLARIFICATION REQUEST Please clarify/specify the appropriate diagnosis supported in the clinical indicators below. Clinical Indicators/Risk Factors/Treatment: 07/24 Obs H&P (Buddy) - 74 y/o male presents with SOB and leg swelling. Possible CHF exacerbation. IV Lasix, cardiology consultation. 07/25 H&P (Annie) - 74 y/o male admit for constrictive pericarditis. 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 In ED, CXR showed small-moderate left and trace right pleural effusions with compressive atelectasis in the L lung base. He received IV Lasix 80 mg. Physical exam: Peripheral extremity edema- significant bilateral lower extremity edema. JVD - Elevated to the mandible. 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 Small LV chamber size, Abnormal ventral septal motion (post op) w/o other RWMA, Calculated LVEF 65%. Normal RV chamber size with mildly reduced systolic function. Enlarged IVC with reduced inspiratory c ollapse. Large Left pleural effusion. - Lab NT Pro BNP - 07/24 4826 MAR: IV Lasix 07/24 80 mg x1 07/25 120 mg x1 07/26 120 mg x1; 160 mg x1 07/27 120 mg x1; 160 mg x1 Options provided: -- Acute on chronic HFpEF -- Other - I will add my own diagnosis -- Disagree - Clinically unable to determine / Unknown -- Refer to Clinical Documentation Reviewer Query created by: Vicki Alex on 07/27/2024 1:57 PM Electronically signed by: Barbara Jay 07/28/2024 8:18 AM * Hospital Course - Juan Carlos Gutierrez M.D. - 07/25/2024 2:02 PM CDT Presenting Complaint Shortness of breath and Leg swelling Relevant Comorbidities His cardiac history is significant for mechanical aortic valve replacement and CABG x1, September 2023. Prior to Admission After his CABG and AVR in September 2023, he was diagnosed with post-operative acute effusive constrictive pericarditis in December 2023 when he was initiated on prolonged taper steroid therapy and colchicine. After steroids were tapered off in may, his symptoms significantly worsened. He had progressive shortness of breath and bilateral lower extremity edema that had gradually worsened since May. ED Course Mr Harris presented to [facility] on 07/24/24 with complaints of progressive shortness of breath and bilateral lower extremity edema. Upon arrival to the ED, he was vitally stable. Labs were notable for BNP 4826, Troponin 107 -> 110 -> 120. Denied chest pain. CXR showed a small-moderate left and trace right pleural effusions. EKG with low voltage QRS in limb leads, He was admitted to the cardiology floor for further workup. Hospital Course He was stable upon arrival. A TTE was performed showing recurrent effusive constrictive pericarditis. His case was discussed with the pericardial team and the plan was to restart steroids at 20mg QD,increase colchicine to 0.6mg QD. He will be on a prednisone taper until his pericardial clinic appointment, where he will have further imaging with TTE and CMRI and discussion regarding possible pericardiectomy. Patient was significantly volume overloaded and required significant diuresis from admission weightof 95.2 kg to 87kg. His symptoms and oedema significantly improved throughout his stay and he no longer endorsed dyspnoea. He did develop an MANJEET throughout his stay, with Cr rising to 3.06 from baseline of 2. UA and Renal US unremarkable, apart from perihepatic ascites. His MANJEET was thought to be due to intravascular volume depletion from diuresis despite persistent extravascular overload. His creatinine had started to downtrend to 2.93 on 08/01 prior to discharge. His Torsemide dose was decreased and he will be discharged on 20 mg daily. As he was commenced on steroids, his blood sugars were elevated. Diabetes and endocrinology was consulted and recommended home-going NPH insulin in the context of steroid-induced hyperglycemia, and stopping glipizide. Once patient is off of steroids he can likely stop insulin and resume Glipizide. He was also commenced on PJP prophylaxis. Final Principal Diagnosis Constrictive Pericarditis and Volume Overload documented in this encounter Plan of Treatment Upcoming Encounters Date Type Department Care Team (Latest Contact Info) Description 09/29/2024 1:00 PM ROUTE SALES SPECIALIST Clinical Communication Virtual Review in [address] [phone] 10/02/2024 10:00 AM ROUTE SALES SPECIALIST Ancillary Procedure Department of Cardiovascular Medicine in [address] [phone] Deven Clement M.D., M.S. [address] [place] [phone] 10/02/2024 10:45 AM ROUTE SALES SPECIALIST Appointment Department of Radiology, [facility], in [address] [phone] Deven Clement M.D., M.S. [address] [place] [phone] 10/02/2024 11:20 AM ROUTE SALES SPECIALIST Appointment Department of Laboratory Medicine and Pathology, [facility] in [place], [place] [address] [place] [phone] Deven Clement M.D., M.S. [address] [place] [phone] 10/02/2024 12:45 PM ROUTE SALES SPECIALIST Appointment Department of Radiology, [facility] in [place], [place] [address] [place] [phone] Deven Clement M.D., M.S. [address] [place] [phone] 10/02/2024 2:00 PM ROUTE SALES SPECIALIST Comprehensive Visit Department of Cardiovascular Medicine in [place], [place] [address] [place] [phone] Keagan Tellez M.D. [address] [place] [phone] documented as of this encounter Procedures Procedure Name Priority Date/Time Associated Diagnosis Comments GLUCOSE POCT, B Routine 08/01/2024 11:23 AM CDT PROTHROMBIN TIME (PT), P Routine 08/01/2024 7:41 AM CDT CBC WITH DIFFERENTIAL, B Routine 08/01/2024 7:41 AM CDT RENAL FUNCTION PANEL, S Routine 08/01/2024 7:40 AM CDT CYSTATIN C WITH EGFR Routine 08/01/2024 7:40 AM CDT GLUCOSE POCT, B Routine 08/01/2024 6:36 AM CDT GLUCOSE POCT, B Routine 07/31/2024 9:52 PM CDT GLUCOSE POCT, B Routine 07/31/2024 5:25 PM CDT GLUCOSE POCT, B Routine 07/31/2024 12:09 PM CDT DIPSTICK, U Routine 07/31/2024 11:33 AM CDT MICROSCOPIC AUTOMATED Routine 07/31/2024 11:33 AM CDT PH, U Routine 07/31/2024 11:33 AM CDT OSMOLALITY, U Routine 07/31/2024 11:33 AM CDT URINALYSIS WITH MICROSCOPIC Routine 07/31/2024 11:33 AM CDT US KIDNEYS BILATERAL WITH BLADDER RAD - Routine (most inpatients and all outpatients) 07/31/2024 11:28 AM CDT PROTHROMBIN TIME (PT), P Routine 07/31/2024 7:43 AM CDT CBC WITH DIFFERENTIAL, B Routine 07/31/2024 7:43 AM CDT MAGNESIUM, S Routine 07/31/2024 7:43 AM CDT BASIC METABOLIC PANEL, S/P Routine 07/31/2024 7:43 AM CDT GLUCOSE POCT, B Routine 07/31/2024 6:11 AM CDT GLUCOSE POCT, B Routine 07/30/2024 9:30 PM CDT ADULT OXYGEN THERAPY Routine 07/30/2024 8:01 PM CDT GLUCOSE POCT, B Routine 07/30/2024 5:00 PM CDT GLUCOSE POCT, B Routine 07/30/2024 12:06 PM CDT PROTHROMBIN TIME (PT), P Routine 07/30/2024 8:03 AM CDT CBC WITH DIFFERENTIAL, B Routine 07/30/2024 8:03 AM CDT BASIC METABOLIC PANEL, S/P Routine 07/30/2024 8:03 AM CDT ADULT OXYGEN [...] POCT, B Routine 07/29/2024 7:39 AM CDT PROTHROMBIN TIME (PT), P Routine 07/29/2024 7:38 AM CDT CBC WITH DIFFERENTIAL, B Routine 07/29/2024 7:38 AM CDT MAGNESIUM, S Routine 07/29/2024 7:38 AM CDT BASIC METABOLIC PANEL, S/P Routine 07/29/2024 7:38 AM CDT HEMOGLOBIN A1C, B Routine 07/29/2024 7:3 4 AM CDT GLUCOSE POCT, B Routine 07/28/2024 8:23 PM CDT ADULT OXYGEN THERAPY Routine 07/28/2024 8:01 PM CDT GLUCOSE POCT, B Routine 07/28/2024 5:35 PM CDT GLUCOSE POCT, B Routine 07/28/2024 12:00 PM CDT CBC WITH DIFFERENTIAL, B Routine 07/28/2024 9:57 AM CDT MAGNESIUM, S Routine 07/28/2024 9:57 AM CDT BASIC METABOLIC PANEL, S/P Routine 07/28/2024 9:57 AM CDT PROTHROMBIN TIME [...] OXYGEN THERAPY Routine 07/27/2024 8:00 AM CDT CBC WITH DIFFERENTIAL, B Routine 07/27/2024 7:42 AM CDT MAGNESIUM, S Routine 07/27/2024 7:42 AM CDT BASIC METABOLIC PANEL, S/P Routine 07/27/2024 7:42 AM CDT GLUCOSE POCT, [...] SPSMA RESULT Timed 07/26/2024 7:21 AM CDT IRON AND TOT IRON-BINDING CAPACITY, S/P Timed 07/26/2024 7:21 AM CDT PROTHROMBIN TIME (PT), P Routine 07/26/2024 7:21 AM CDT FIBRINOGEN, P Timed 07/26/2024 7:21 AM CDT RETICULOCYTES, B Timed 07/26/2024 7:21 AM CDT CBC WITH DIFFERENTIAL, B Routine 07/26/2024 7:21 AM CDT HAPTOGLOBIN, S Timed 07/26/2024 7:21 AM CDT FOLATE, S Timed 07/26/2024 7:21 AM CDT FERRITIN, S Timed 07/26/2024 7:21 AM CDT VITAMIN B12 ASSAY, S Timed 07/26/2024 7:21 AM CDT BASIC METABOLIC PANEL, S/P Routine 07/26/2024 7:21 AM CDT GLUCOSE POCT, [...] (PT), P STAT 07/25/2024 2:04 PM CDT TROPONIN T, BASELINE, 5TH GEN, P STAT 07/25/2024 1:50 PM CDT C-REACTIVE PROTEIN (CRP), S/P STAT 07/25/2024 1:50 PM CDT SEDIMENTATION RATE, B STAT 07/25/2024 1:49 PM CDT ECG STAT 07/25/2024 1:34 PM CDT ADULT OXYGEN THERAPY Routine 07/25/2024 1:28 PM CDT ADULT OXYGEN THERAPY Routine 07/25/2024 1:28 PM CDT ADULT OXYGEN THERAPY Routine 07/25/2024 1:28 PM CDT BASIC METABOLIC PANEL, S/P Routine 07/25/2024 4:07 AM CDT TROPONIN T, 6H, 5TH GEN, P Timed 07/24/2024 11:51 PM CDT BASIC METABOLIC PANEL, S/P Timed 07/24/2024 11:51 PM CDT TROPONIN T, 2H/6H REFLEX, 5TH GEN, P Timed 07/24/2024 7:28 PM CDT DX CHEST AP OR PA AND LATERAL 2 VIEWS RAD - Semiurgent (Fast; most ED patients; some inpatients) 07/24/2024 6:11 PM CDT TROPONIN T, BASELINE, 5TH GEN, P STAT 07/24/2024 5:20 PM CDT NT-PRO B-TYPE NATRIURETIC PEPTIDE (BNP), S STAT 07/24/2024 5:20 PM CDT PROTHROMBIN TIME (PT), P STAT 07/24/2024 5:20 PM CDT CBC WITH DIFFERENTIAL, B STAT 07/24/2024 5:20 PM CDT BASIC METABOLIC PANEL, S/P STAT 07/24/2024 5:20 PM CDT ECG Routine 07/24/2024 5:08 PM CDT documented in this encounter Results * (ABNORMAL) Glucose, POCT (08/01/2024 11:23 AM CDT) Glucose, POCT, B 162(H) 70 - 140 mg/dL 08/01/2024 11:25 AM CDT PCLX Site Capillary 08/01/2024 11:25 AM CDT PCLX Last Intake 2-3 hours 08/01/2024 11:25 AM CDT PCLX Blood 08/01/2024 11:2 3 AM CDT 08/01/2024 11:25 AM CDT Unknown Provider LAB POCT ORDERABLES- MANUAL POC [facility] [address] [place] [address], [facility] PCLX [facility] POC [address] [place] [address] * (ABNORMAL) Prothrombin Time (PT) (08/01/2024 7:41 AM CDT) Pathologist [facility] Prothrombin Time, P 22.1(H) 9.4 - 12.5 sec 08/01/2024 8:45 AM CDT DTL INR 2.0 0.9 - 1.1 08/01/2024 8:45 AM CDT DTL Comment: ----ADDITIONAL INFORMATION---- Standard intensity warfarin therapeutic range: 2.0 to 3.0 ?? High intensity warfarin therapeutic range: 2.5 to 3.5 Blood (Blood, Venous) 08/01/2024 7:41 AM CDT 08/01/2024 8:25 AM CDT Yasmine Garduno M.D., Ph.D. LAB BLOOD ADD -ON [facility] [address] [place] [address], [facility] DTL [facility] [address] [place] [address] * (ABNORMAL) CBC with Differential, Blood (08/01/2024 7:41 AM CDT) Hemoglobin 12.1(L) 13.2 - 16.6 g/dL 08/01/2024 [...] Clement M.D., M.S. LAB BLOOD ADD -ON [facility] [address] [place] [address], [facility] DTL [facility] [address] [place] [address] [facility] [address] [place] [address] * (ABNORMAL) Cystatin C with Estimated GFR (08/01/2024 7:40 AM CDT) [facility] eGFR by Cystatin C 17(L) >60 mL/min/BSA [...] CDT Shameka Feldman M.D. LAB BLOOD ADD-ON [facility] [address] [address], [facility] [address] [address] * (ABNORMAL) Renal Function Panel (08/01/2024 7:40 AM CDT) [facility] Potassium, S 4.4 3.6 - 5.2 mmol/L [...] Clement M.D., M.S. LAB BLOOD ADD -ON [facility] [address] [place] [address], [facility] DTL [facility] [address] [place] [address] * (ABNORMAL) Glucose, POCT (08/01/2024 6:36 AM CDT) Glucose, POCT, B 144(H) 70 - 140 mg/dL 08/01/2024 6:39 AM CDT PCLX Last Intake > 4 hours 08/01/2024 6:39 AM CDT PCLX Blood 08/01/2024 6:36 AM CDT 08/01/2024 6:39 AM CDT Unknown Provider LAB POCT ORDERABLES- MANUAL Performing Organization Address City/[facility]/ZIP Co de Phone Number POC [facility] [address] [place] [address], [facility] PCLX [facility] POC [address] [place] [address] * (ABNORMAL) Glucose, POCT (07/31/2024 9:52 PM CDT) Glucose, POCT, B 284(H) 70 - 140 mg/dL 07/31/2024 10:05 PM CDT PCLX Last Intake 1-2 hours 07/31/2024 10:05 PM CDT PCLX Blood 07/31/2024 9:52 PM CDT 07/31/2024 10:05 PM CDT Unknown Provider LAB POCT ORDERABLES- MANUAL Performing Organization Address City/[facility]/ZIP Co de Phone Number POC [facility] [address] [place] [address], [facility] PCLX [facility] POC [address] [place] [address] * Glucose, POCT (07/31/2024 5:25 PM CDT) Glucose, POCT, B 110 70 - 140 mg/dL 07/31/2024 5:27 PM CDT PCLX Site Capillary 07/31/2024 5:27 PM CDT PCLX Last Intake 3-4 hours 07/31/2024 5:27 PM CDT PCLX Blood 07/31/2024 5:25 PM CDT 07/31/2024 5:27 PM CDT Unknown Provider LAB POCT ORDERABLES- MANUAL Performing Organization Address [facility] de Phone Number POC [facility] [address] [place] [address], [facility] PCLX [facility] POC [address] [place] [address] * (ABNORMAL) Glucose, POCT (07/31/2024 12:09 PM CDT) Glucose, POCT, B 243(H) 70 - 140 mg/dL 07/31/2024 12:11 PM CDT PCLX Blood 07/31/2024 12:0 9 PM CDT 07/31/2024 12:11 PM CDT Unknown Provider LAB POCT ORDERABLES- MANUAL Performing Organization Address City/[facility]/ZIP Co de Phone Number POC [facility] [address] [place] [address], [place] PCLX [facility] [address] [place] [address] * Dipstick, Urine (07/31/2024 11:33 AM CDT) Pathologist [facility] Hemoglobin, QL, U Negative Negative 07/31/2024 12:54 [...] Chelsea Izaguirre M.D. LAB URINE ORDERAB LES [facility] [address] [place] [address], [facility] [address] [place] [address] * pH, Urine (07/31/2024 11:33 AM CDT) [facility] pH, U 6.3 4.5 - 8.0 07/31/2024 12: 53 PM CDT DTL Urine 07/31/2024 11:3 3 AM CDT 07/31/2024 12:11 PM CDT Chelsea Izaguirre M.D. LAB URINE ORDERAB LES [facility] [address] [place] [address], [facility] [address] [place] [address] * Microscopic Automated (07/31/2024 11:33 AM CDT) [facility] Microscopy Normal 07/31/2024 12:54 PM CDT DTL RBC None Seen <3 /hpf 07/31/2024 12:54 PM CDT DTL WBC 1-3 /hpf 07/31/2024 12:54 PM CDT DTL Comment: ----REFERENCE VALUE---- <4 ??(Males) <11 (Females) Casts, Hyaline 4-10 /lpf 07/31/2024 12:54 PM CDT DTL Urine 07/31/2024 11:3 3 AM CDT 07/31/2024 12:11 PM CDT Chelsea Izaguirre M.D. LAB URINE ORDERAB LES Performing Organization Address City/[facility]/ZIP Co de Phone Number [facility] [address] [place], [place] [address] [place] [address] * Osmolality, Urine (07/31/2024 11:33 AM CDT) Pathologist [facility] Osmolality, U 358 150 - 1150 mOsm/kg 07/31/2024 12:53 PM CDT DTL Urine 07/31/2024 11:3 3 AM CDT 07/31/2024 12:11 PM CDT Chelsea Izaguirre M.D. LAB URINE ORDERAB LES Performing Organization Address City/[facility] Co de Phone Number [facility] [address] [place], [place] [address] [place] [address] * (ABNORMAL) Urinalysis, with Microscopic: Urine, Midstream [...] Clement M.D., M.S. LAB URINE ORD ERABLES [facility] [address] [place] [address], [facility] DTL [facility] [address] [place] [address] * US Kidneys Bilateral with Bladder (07/31/2024 [...] M.S. IMG US PROCED URES * (ABNORMAL) Prothrombin Time (PT) (07/31/2024 7:43 AM CDT) Prothrombin Time, P 24.4(H) 9.4 - 12.5 sec 07/31/2024 8:50 AM CDT DTL INR 2.2 0.9 - 1.1 07/31/2024 8:50 AM CDT DTL Comment: ----ADDITIONAL INFORMATION---- Standard intensity warfarin therapeutic range: 2.0 to 3.0 ?? High intensity warfarin therapeutic range: 2.5 to 3.5 Blood (Blood, Venous) 07/31/2024 7:43 AM CDT 07/31/2024 8:25 AM CDT Yasmine Garduno M.D., Ph.D. LAB BLOOD ADD -ON Performing Organization Address City/[facility]/[place] [address], [facility] [place] [address] [place] [address] * (ABNORMAL) Magnesium (07/31/2024 7:43 AM CDT) Magnesium, S 2.5(H) 1.7 - 2.3 mg/dL 07/31/2024 10:14 AM CDT DTL Blood (Blood, Venous) 07/31/2024 7:43 AM CDT 07/31/2024 9:25 AM CDT Deven Clement M.D., M.S. LAB BLOOD ADD -ON [facility] [address] [place] [address], [facility] DTL [facility] [address] [place] [address] * (ABNORMAL) Basic Metabolic Panel (07/31/2024 7:43 AM CDT) Pathologist [facility] Potassium, S 4.2 3.6 - 5.2 [...] Clement M.D., M.S. LAB BLOOD ADD -ON [facility] [address] [place] [address], [facility] DTL [facility] [address] [place] [address] * (ABNORMAL) CBC with Differential, Blood (07/31/2024 7:43 AM CDT) [facility] Hemoglobin 12.0(L) 13.2 - 16.6 g/dL 07/31/2024 8:52 AM CDT DTL Hematocrit 36.9(L) 38.3 - 48.6 % 07/31/2024 8:52 AM CDT DTL Erythrocytes 4.12(L) 4.35 - 5.65 x10(12)/L 07/31/2024 8:52 AM CDT DTL MCV 89.6 78.2 - 97.9 fL 07/31/2024 8:52 AM CDT DTL RBC Distrib Width 14.8(H) 11.8 - 14.5 % 07/31/2024 8:52 AM CDT DTL Platelet Count 132(L) 135 - 317 x10(9)/L 07/31/2024 9:48 AM CDT DTL Leukocytes 7.9 3.4 - 9.6 x10(9)/L 07/31/2024 9:48 AM CDT DTL Neutrophils 5.62 1.56 - 6.45 x10(9)/L 07/31/2024 8:52 AM CDT DHPM Lymphocytes 1.28 0.95 - 3.07 x10(9)/L 07/31/2024 8:52 AM CDT DTL Monocytes 0.90(H) 0.26 - 0.81 x10(9)/L 07/31/2024 8:52 AM CDT DTL Eosinophils 0.03 0.03 - 0.48 x10(9)/L 07/31/2024 8:52 AM CDT DTL Basophils 0.03 0.01 - 0.08 x10(9)/L 07/31/2024 8:52 AM CDT DTL Blood (Blood, Venous) 07/31/2024 7:43 AM CDT 07/31/2024 8:25 AM CDT Deven Clement M.D., M.S. LAB BLOOD ADD -ON [facility] [address] [place] [address], [facility] DTL [facility] [address] [place] [address] DHPM [facility] [address] [place] [address] * Glucose, POCT (07/31/2024 6:11 AM CDT) Glucose, POCT, B 104 70 - 140 mg/dL 07/31/2024 6:15 AM CDT PCLX Last Intake 3-4 hours 07/31/2024 6:15 AM CDT PCLX Blood 07/31/2024 6:11 AM CDT 07/31/2024 6:15 AM CDT Unknown Provider LAB POCT ORDERABLES- MANUAL POC [facility] [address] [place] [address], [facility] PCLX [facility] POC [address] [place] [address] * Glucose, POCT (07/30/2024 9:30 PM CDT) Glucose, POCT, B 138 70 - 140 mg/dL 07/30/2024 9:36 PM CDT PCLX Site Capillary 07/30/2024 9:36 PM CDT PCLX Last Intake > 4 hours 07/30/2024 9:36 PM CDT PCLX Blood 07/30/2024 9:30 PM CDT 07/30/2024 9:36 PM CDT Unknown Provider LAB POCT ORDERABLES- MANUAL POC [facility] [address] [place] [address], [facility] PCLX [facility] POC [address] [place] [address] * Glucose, POCT (07/30/2024 5:00 PM CDT) Glucose, POCT, B 118 70 - 140 mg/dL 07/30/2024 5:14 PM CDT PCLX Site Capillary 07/30/2024 5:14 PM CDT PCLX Last Intake > 4 hours 07/30/2024 5:14 PM CDT PCLX Blood 07/30/2024 5:00 PM CDT 07/30/2024 5:14 PM CDT Unknown Provider LAB POCT ORDERABLES- MANUAL Performing Organization Address City/[facility] Co de Phone Number POC [facility] [address] [place] [address], [facility] PCLX [facility] POC [address] [place] [address] * (ABNORMAL) Glucose, POCT (07/30/2024 12:06 PM CDT) Glucose, POCT, B 259(H) 70 - 140 mg/dL 07/30/2024 12:12 PM CDT PCLX Site Capillary 07/30/2024 12:12 PM CDT PCLX Last Intake 3-4 hours 07/30/2024 12:12 PM CDT PCLX Blood 07/30/2024 12:0 6 PM CDT 07/30/2024 12:12 PM CDT Unknown Provider LAB POCT ORDERABLES- MANUAL Performing Organization Address [facility] de Phone Number POC [facility] [address] [place] [address], [facility] PCLX [facility] POC [address] [place] [address] * (ABNORMAL) Prothrombin Time (PT) (07/30/2024 8:03 AM CDT) Prothrombin Time, P 27.1(H) 9.4 - 12.5 sec 07/30/2024 9:07 AM CDT DTL INR 2.4 0.9 - 1.1 07/30/2024 9:07 AM CDT DTL Comment: ----ADDITIONAL INFORMATION---- Standard intensity warfarin therapeutic range: 2.0 to 3.0 ?? High intensity warfarin therapeutic range: 2.5 to 3.5 Blood (Blood, Venous) 07/30/2024 8:03 AM CDT 07/30/2024 8:25 AM CDT Yasmine Garduno M.D., Ph.D. LAB BLOOD ADD -ON [facility] [address] [place] [address], [facility] DTL [facility] [address] [place] [address] * (ABNORMAL) Basic Metabolic Panel (07/30/2024 8:03 AM CDT) Pathologist [facility] Potassium, S 4.2 3.6 - 5.2 mmol/L 07/30/2024 10:14 AM CDT DTL Sodium, S 139 135 - 145 mmol/L 07/30/2024 10:14 AM CDT DTL Chloride, S 93(L) 98 - 107 mmol/L 07/30/2024 10:14 AM CDT DTL Bicarbonate, S 31(H) 22 - 29 mmol/L 07/30/2024 10:14 AM CDT DTL Anion Gap 15 7 - 15 07/30/2024 10:14 AM CDT DTL BUN (Blood Urea Nitrogen), S 58(H) 8 - 24 mg/dL 07/30/2024 10:14 AM CDT DTL Creatinine 2.75(H) 0.74 - 1.35 mg/dL 07/30/2024 10:14 AM CDT DTL Estimated GFR (eGFR) 24(L) >=60 mL/min/BSA 07/30/2024 10:14 AM CDT DTL Comment: Estimated GFR calculated using the 2020 CKD_EPI creatinine equation. Calcium, Total, S 9.3 8.8 - 10.2 mg/dL 07/30/2024 10:14 AM CDT DTL Glucose, S 98 70 - 140 mg/dL 07/30/2024 10:14 AM CDT DTL Blood (Blood, Venous) 07/30/2024 8:03 AM CDT 07/30/2024 8:43 AM CDT Yasmine Garduno M.D., Ph.D. LAB BLOOD ADD -ON Performing Organization Address City/[facility]/ZIP Co de Phone Number [facility] [address] [place] [address], [facility] DTL [facility] [address] [place] [address] * (ABNORMAL) CBC with Differential, Blood (07/30/2024 8:03 AM CDT) Hemoglobin 12.1(L) 13.2 - 16.6 g/dL 07/30/2024 9:02 AM CDT DTL Hematocrit 37.7(L) 38.3 - 48.6 % 07/30/2024 9:02 AM CDT DTL Erythrocytes 4.19(L) 4.35 - 5.65 x10(12)/L 07/30/2024 9:02 AM CDT DTL MCV 90.0 78.2 - 97.9 fL 07/30/2024 9:02 AM CDT DTL RBC Distrib Width 14.8(H) 11.8 - 14.5 % 07/30/2024 9:02 AM CDT DTL Platelet Count 159 135 - 317 x10(9)/L 07/30/2024 9:02 AM CDT DTL Leukocytes 7.4 3.4 - 9.6 x10(9)/L 07/30/2024 9:02 AM CDT DTL Neutrophils 5.19 1.56 - 6.45 x10(9)/L 07/30/2024 9:02 AM CDT DHPM Lymphocytes 1.28 0.95 - 3.07 x10(9)/L 07/30/2024 9:02 AM CDT DTL Monocytes 0.85(H) 0.26 - 0.81 x10(9)/L 07/30/2024 9:02 AM CDT DTL Eosinophils 0.05 0.03 - 0.48 x10(9)/L 07/30/2024 9:02 AM CDT DTL Basophils 0.04 0.01 - 0.08 x10(9)/L 07/30/2024 9:02 AM CDT DTL Blood (Blood, Venous) 07/30/2024 8:03 AM CDT 07/30/2024 8:25 AM CDT Yasmine Garduno M.D., Ph.D. LAB BLOOD ADD -ON Performing Organization Address City/[facility]/ZIP Co de Phone Number [facility] [address] [place] [address], [facility] DTL [facility] [address] [place] [address] DHPM [facility] [address] [place] [address] * Glucose, POCT (07/30/2024 7:45 AM CDT) Glucose, POCT, B 105 70 - 140 mg/dL 07/30/2024 7:47 AM CDT PCLX Site Capillary 07/30/2024 7:47 AM CDT PCLX Last Intake > 4 hours 07/30/2024 7:47 AM CDT PCLX Blood 07/30/2024 7:45 AM CDT 07/30/2024 7:47 AM CDT Unknown Provider LAB POCT ORDERABLES- MANUAL Performing Organization Address City/[facility]/ZIP Co de Phone Number [facility] [address] [place] [address], [place] PCLX [facility] POC [address] [place] [address] * (ABNORMAL) Glucose, POCT (07/29/2024 9:32 PM CDT) Glucose, POCT, B 235(H) 70 - 140 mg/dL 07/29/2024 9:35 PM CDT PCLX Site Capillary 07/29/2024 9:35 PM CDT PCLX Last Intake 3-4 hours 07/29/2024 9:35 PM CDT PCLX Blood 07/29/2024 9:32 PM CDT 07/29/2024 9:35 PM CDT Unknown Provider LAB POCT ORDERABLES- MANUAL [facility] [address] [place] [address], [place] PCLX [facility] POC [address] [place] [address] * (ABNORMAL) Glucose, POCT (07/29/2024 4:46 PM CDT) Glucose, POCT, B 239(H) 70 - 140 mg/dL 07/29/2024 4:49 PM CDT PCLX Site Capillary 07/29/2024 4:49 PM CDT PCLX Last Intake > 4 hours 07/29/2024 4:49 PM CDT PCLX Blood 07/29/2024 4:46 PM CDT 07/29/2024 4:49 PM CDT Unknown Provider LAB POCT ORDERABLES- MANUAL Performing Organization Address City/[facility] Co de Phone Number POC [facility] [address] [place] [address], [facility] PCLX [facility] POC [address] [place] [address] * (ABNORMAL) Glucose, POCT (07/29/2024 11:30 AM CDT) Glucose, POCT, B 194(H) 70 - 140 mg/dL 07/29/2024 11:34 AM CDT PCLX Site Capillary 07/29/2024 11:34 AM CDT PCLX Last Intake 2-3 hours 07/29/2024 11:34 AM CDT PCLX Blood 07/29/2024 11:3 0 AM CDT 07/29/2024 11:34 AM CDT Unknown Provider LAB POCT ORDERABLES- MANUAL Performing Organization Address City/[facility]/ZIP Co de Phone Number POC [facility] [address] [place] [address], [place] PCLX [facility] POC [address] [place] [address] * Glucose, POCT (07/29/2024 7:39 AM CDT) Glucose, POCT, B 106 70 - 140 mg/dL 07/29/2024 7:44 AM CDT PCLX Blood 07/29/2024 7:39 AM CDT 07/29/2024 7:44 AM CDT Unknown Provider LAB POCT ORDERABLES- MANUAL Performing Organization Address [facility] Co de Phone Number POC [facility] [address] [place] [address], [facility] PCLX [facility] [address] [place] [address] * (ABNORMAL) Prothrombin Time (PT) (07/29/2024 7:38 AM CDT) Prothrombin Time, P 33.0(H) 9.4 - 12.5 sec 07/29/2024 8:50 AM CDT DTL INR 3.0 0.9 - 1.1 07/29/2024 8:50 AM CDT DTL Comment: ----ADDITIONAL INFORMATION---- Standard intensity warfarin therapeutic range: 2.0 to 3.0 ?? High intensity warfarin therapeutic range: 2.5 to 3.5 Blood (Blood, Venous) 07/29/2024 7:38 AM CDT 07/29/2024 8:27 AM CDT Neftaly Gomez M.D. LAB BLOOD ADD-ON Performing Organization Address City/[facility]/ZIP Co de Phone Number [facility] [address] [place] [address], [facility] [address] [place] [address] * (ABNORMAL) Basic Metabolic Panel (07/29/2024 7:38 AM CDT) Potassium, S 3.9 3.6 - 5.2 mmol/L 07/29/2024 9:20 AM CDT DTL Sodium, S 138 135 - 145 mmol/L 07/29/2024 9:20 AM CDT DTL Chloride, S 95(L) 98 - 107 mmol/L 07/29/2024 9:20 AM CDT DTL Bicarbonate, S 30(H) 22 - 29 mmol/L 07/29/2024 9:20 AM CDT DTL Anion Gap 13 7 - 15 07/29/2024 9:20 AM CDT DTL BUN (Blood Urea Nitrogen), S 55(H) 8 - 24 mg/dL 07/29/2024 9:20 AM CDT DTL Creatinine 2.71(H) 0.74 - 1.35 mg/dL 07/29/2024 9:20 AM CDT DTL Estimated GFR (eGFR) 24(L) >=60 mL/min/BSA 07/29/2024 9:20 AM CDT DTL Comment: Estimated GFR calculated using the 2020 CKD_EPI creatinine equation. Calcium, Total, S 9.2 8.8 - 10.2 mg/dL 07/29/2024 9:20 AM CDT DTL Glucose, S 104 70 - 140 mg/dL 07/29/2024 9:20 AM CDT DTL Blood (Blood, Venous) 07/29/2024 7:38 AM CDT 07/29/2024 8:54 AM CDT Yasmine Garduno M.D., Ph.D. LAB BLOOD ADD -ON [facility] [address] [place] [address], [facility] [address] [place] [address] * (ABNORMAL) CBC with Differential, Blood (07/29/2024 7:38 AM CDT) Hemoglobin 11.8(L) 13.2 - 16.6 g/dL 07/29/2024 8:46 AM CDT DTL Hematocrit 37.1(L) 38.3 - 48.6 % 07/29/2024 8:46 AM CDT DTL Erythrocytes 4.15(L) 4.35 - 5.65 x10(12)/L 07/29/2024 8:46 AM CDT DTL MCV 89.4 78.2 - 97.9 fL 07/29/2024 8:46 AM CDT DTL RBC Distrib Width 14.7(H) 11.8 - 14.5 % 07/29/2024 8:46 AM CDT DTL Platelet Count 139 135 - 317 x10(9)/L 07/29/2024 8:46 AM CDT DTL Leukocytes 6.8 3.4 - 9.6 x10(9)/L 07/29/2024 8:46 AM CDT DTL Neutrophils 4.75 1.56 - 6.45 x10(9)/L 07/29/2024 8:46 AM CDT DHPM Lymphocytes 1.17 0.95 - 3.07 x10(9)/L 07/29/2024 8:46 AM CDT DTL Monocytes 0.82(H) 0.26 - 0.81 x10(9)/L 07/29/2024 8:46 AM CDT DTL Eosinophils 0.03 0.03 - 0.48 x10(9)/L 07/29/2024 8:46 AM CDT DTL Basophils 0.03 0.01 - 0.08 x10(9)/L 07/29/2024 8:46 AM CDT DTL Blood (Blood, Venous) 07/29/2024 7:38 AM CDT 07/29/2024 8:29 AM CDT Yasmine Garduno M.D., Ph.D. LAB BLOOD ADD -ON [facility] [address] [place] [address], [facility] [address] [place], [place] [id number] [place] [address] [address] [place] [address] * Magnesium (07/29/2024 7:38 AM CDT) [facility] Magnesium, S 2.2 1.7 - 2.3 mg/dL 07/29/2024 9:20 AM CDT DTL Blood (Blood, Venous) 07/29/2024 7:38 AM CDT 07/29/2024 8:54 AM CDT Yasmine Garduno M.D., Ph.D. LAB BLOOD ADD -ON [facility] [address] [place] [address], [facility] DTL [facility] [address] [place] [address] * (ABNORMAL) Hemoglobin A1c (07/29/2024 7:34 AM [...] LAB BLOOD ADD-O N Performing Organization Address City/[facility]/ZIP Co de Phone Number [facility] [address] [place] [address], [facility] DTL [facility] [address] [place] [address] * (ABNORMAL) Glucose, POCT (07/28/2024 8:23 PM CDT) Pathologist [facility] Glucose, POCT, B 271(H) 70 - 140 mg/dL 07/28/2024 8:40 PM CDT PCLX Site Capillary 07/28/2024 8:40 PM CDT PCLX Last Intake 3-4 hours 07/28/2024 8:40 PM CDT PCLX Blood 07/28/2024 8:23 PM CDT 07/28/2024 8:41 PM CDT Unknown Provider LAB POCT ORDERABLES- MANUAL POC [facility] [address] [place] [address], [facility] PCLX [facility] POC [address] [place] [address] * (ABNORMAL) Glucose, POCT (07/28/2024 5:35 PM CDT) Glucose, POCT, B 187(H) 70 - 140 mg/dL 07/28/2024 5:37 PM CDT PCLX Site Capillary 07/28/2024 5:37 PM CDT PCLX Last Intake > 4 hours 07/28/2024 5:37 PM CDT PCLX Blood 07/28/2024 5:35 PM CDT 07/28/2024 5:38 PM CDT Unknown Provider LAB POCT ORDERABLES- MANUAL Performing Organization Address City/[facility]/ZIP Co de Phone Number POC [facility] [address] [place] [address], [facility] PCLX [facility] POC [address] [place] [address] * (ABNORMAL) Glucose, POCT (07/28/2024 12:00 PM CDT) Glucose, POCT, B 148(H) 70 - 140 mg/dL 07/28/2024 12:03 PM CDT PCLX Site Capillary 07/28/2024 12:03 PM CDT PCLX Blood 07/28/2024 12:0 0 PM CDT 07/28/2024 12:03 PM CDT Unknown Provider LAB POCT ORDERABLES- MANUAL Performing Organization Address City/[facility] Co de Phone Number POC [facility] [address] [place] [address], [facility] PCLX [facility] POC [address] [place] [address] * (ABNORMAL) Basic Metabolic Panel (07/28/2024 9:57 AM CDT) Potassium, S 3.7 3.6 - 5.2 mmol/L 07/28/2024 11:17 AM CDT DTL Sodium, S 135 135 - 145 mmol/L 07/28/2024 11:17 AM CDT DTL Chloride, S 95(L) 98 - 107 mmol/L 07/28/2024 11:17 AM CDT DTL Bicarbonate, S 27 22 - 29 mmol/L 07/28/2024 11:17 AM CDT DTL Anion Gap 13 7 - 15 07/28/2024 11:17 AM CDT DTL BUN (Blood Urea Nitrogen), S 50(H) 8 - 24 mg/dL 07/28/2024 11:17 AM CDT DTL Creatinine 2.48(H) 0.74 - 1.35 mg/dL 07/28/2024 11:17 AM CDT DTL Estimated GFR (eGFR) 27(L) >=60 mL/min/BSA 07/28/2024 11:17 AM CDT DTL Comment: Estimated GFR calculated using the 2020 CKD_EPI creatinine equation. Calcium, Total, S 8.9 8.8 - 10.2 mg/dL 07/28/2024 11:17 AM CDT DTL Glucose, S 210(H) 70 - 140 mg/dL 07/28/2024 11:17 AM CDT DTL Blood (Blood, Venous) 07/28/2024 9:57 AM CDT 07/28/2024 10:29 AM CDT Yasmine Garduno M.D., Ph.D. LAB BLOOD ADD -ON [address] [address], [facility] [place] [address] * (ABNORMAL) CBC with Differential, Blood (07/28/2024 9:57 AM CDT) Hemoglobin 11.5(L) 13.2 - 16.6 g/dL 07/28/2024 10:52 AM CDT DTL Hematocrit 35.8(L) 38.3 - 48.6 % 07/28/2024 10:52 AM CDT DTL Erythrocytes 3.97(L) 4.35 - 5.65 x10(12)/L 07/28/2024 10:52 AM CDT DTL MCV 90.2 78.2 - 97.9 fL 07/28/2024 10:52 AM CDT DTL RBC Distrib Width 14.8(H) 11.8 - 14.5 % 07/28/2024 10:52 AM CDT DTL Platelet Count 131(L) 135 - 317 x10(9)/L 07/28/2024 10:52 AM CDT DTL Leukocytes 7.0 3.4 - 9.6 x10(9)/L 07/28/2024 10:52 AM CDT DTL Neutrophils 5.26 1.56 - 6.45 x10(9)/L 07/28/2024 10:52 AM CDT DHPM Lymphocytes 0.96 0.95 - 3.07 x10(9)/L 07/28/2024 10:52 AM CDT DTL Monocytes 0.67 0.26 - 0.81 x10(9)/L 07/28/2024 10:52 AM CDT DTL Eosinophils 0.04 0.03 - 0.48 x10(9)/L 07/28/2024 10:52 AM CDT DTL Basophils 0.04 0.01 - 0.08 x10(9)/L 07/28/2024 10:52 AM CDT DTL Blood (Blood, Venous) 07/28/2024 9:57 AM CDT 07/28/2024 10:17 AM CDT Yasmine Garduno M.D., Ph.D. LAB BLOOD ADD -ON [facility] [address] [facility] [address] 200 [place] [address] * Magnesium (07/28/2024 9:57 AM CDT) [facility] Magnesium, S 2.1 1.7 - 2.3 mg/dL 07/28/2024 11:17 AM CDT DTL Blood (Blood, Venous) 07/28/2024 9:57 AM CDT 07/28/2024 10:29 AM CDT Yasmine Garduno M.D., Ph.D. LAB BLOOD ADD -ON [facility] [address] DTL [facility] 200 [place] [address] * (ABNORMAL) Prothrombin Time (PT) (07/28/2024 9:56 AM CDT) Prothrombin Time, P 38.7(H) 9.4 - 12.5 sec 07/28/2024 10:46 AM CDT DTL INR 3.5 0.9 - 1.1 07/28/2024 10:58 AM CDT DTL Comment: ----ADDITIONAL INFORMATION---- Standard intensity warfarin therapeutic range: 2.0 to 3.0 ?? High intensity warfarin therapeutic range: 2.5 to 3.5 Blood (Blood, Venous) 07/28/2024 9:56 AM CDT 07/28/2024 10:17 AM CDT Neftaly Gomez M.D. LAB BLOOD ADD-ON [facility] 200 [place] [address], [facility] 200 [place] [address] * (ABNORMAL) Glucose, POCT (07/28/2024 8:52 AM CDT) Pathologist [facility] Glucose, POCT, B 190(H) 70 - 140 mg/dL 07/28/2024 8:54 AM CDT PCLX Site Capillary 07/28/2024 8:54 AM CDT PCLX Last Intake 1-2 hours 07/28/2024 8:54 AM CDT PCLX Blood 07/28/2024 8:52 AM CDT 07/28/2024 8:54 AM CDT Unknown Provider LAB POCT ORDERABLES- MANUAL POC [facility] 200 [place] [address], [facility] PCLX [facility] 200 [place] [address] * Glucose, POCT (07/28/2024 7:57 AM CDT) Pathologist [facility] Glucose, POCT, B 81 70 - 140 mg/dL 07/28/2024 8:04 AM CDT PCLX Site Capillary 07/28/2024 8:04 AM CDT PCLX Blood 07/28/2024 7:57 AM CDT 07/28/2024 8:04 AM CDT Unknown Provider LAB POCT ORDERABLES- MANUAL POC [facility] [address] [place] [address], [facility] PCLX [facility] POC [address] [place] [address] * (ABNORMAL) Basic Metabolic Panel (07/27/2024 11:09 PM CDT) Potassium, S 3.9 3.6 - 5.2 mmol/L 07/27/2024 11:52 PM CDT DTL Sodium, S 138 135 - 145 mmol/L 07/27/2024 11:52 PM CDT DTL Chloride, S 95(L) 98 - 107 mmol/L 07/27/2024 11:52 PM CDT DTL Bicarbonate, S 30(H) 22 - 29 mmol/L 07/27/2024 11:52 PM CDT DTL Anion Gap 13 7 - 15 07/27/2024 11:52 PM CDT DTL BUN (Blood Urea Nitrogen), S 48(H) 8 - 24 mg/dL 07/27/2024 11:52 PM CDT DTL Creatinine 2.54(H) 0.74 - 1.35 mg/dL 07/27/2024 11:52 PM CDT DTL Estimated GFR (eGFR) 26(L) >=60 mL/min/BSA 07/27/2024 11:52 PM CDT DTL Comment: Estimated GFR calculated using the 2020 CKD_EPI creatinine equation. Calcium, Total, S 9.2 8.8 - 10.2 mg/dL 07/27/2024 11:52 PM CDT DTL Glucose, S 121 70 - 140 mg/dL 07/27/2024 11:52 PM CDT DTL Blood (Blood, Venous) 07/27/2024 11:09 PM CDT 07/27/2024 11:36 PM CDT Yasmine Garduno M.D., Ph.D. LAB BLOOD ADD -ON Performing Organization Address City/[facility]/ZIP Co de Phone Number [facility] [address] [place] [address], [facility] DTL [facility] 200 [place] [address] * (ABNORMAL) Glucose, POCT (07/27/2024 9:45 PM CDT) [facility] Glucose, POCT, B 207(H) 70 - 140 mg/dL 07/27/2024 9:48 PM CDT PCLX Site Capillary 07/27/2024 9:48 PM CDT PCLX Last Intake > 4 hours 07/27/2024 9:48 PM CDT PCLX Blood 07/27/2024 9:45 PM CDT 07/27/2024 9:48 PM CDT Unknown Provider LAB POCT ORDERABLES- MANUAL Performing Organization Address City/[facility]/ZIP Co de Phone Number [facility] 200 [place] [address], [facility] PCLX [facility] POC 200 [place] [address] * (ABNORMAL) Glucose, POCT (07/27/2024 4:27 PM CDT) [facility] Glucose, POCT, B 176(H) 70 - 140 mg/dL 07/27/2024 4:32 PM CDT PCLX Site Capillary 07/27/2024 4:32 PM CDT PCLX Blood 07/27/2024 4:27 PM CDT 07/27/2024 4:32 PM CDT Unknown Provider LAB POCT ORDERABLES- MANUAL Performing Organization Address City/[facility]/ZIP Co de Phone Number [facility] 200 [place] [address], [facility] PCLX [facility] POC 200 [place] [address] * (ABNORMAL) Cystatin C with Estimated GFR (07/27/2024 11:57 AM CDT) [facility] eGFR by Cystatin C 19(L) >60 mL/min/BSA 07/27/2024 12:38 PM CDT DTL Comment: Estimated GFR calculated [...] lower with the new assay. Cystatin C 2.82(H) 0.67 - 1.21 mg/L 07/27/2024 12:38 PM CDT DTL Blood (Blood, Venous) 07/27/2024 11:57 AM CDT 07/27/2024 12:24 PM CDT Yasmine Garduno M.D., Ph.D. LAB BLOOD ADD -ON Performing Organization Address City/[facility]/ZIP Co de Phone Number [facility] 200 [place] [address], [facility] 200 [place] [address] * (ABNORMAL) Glucose, POCT (07/27/2024 11:13 AM CDT) Pathologist [facility] Glucose, POCT, B 244(H) 70 - 140 mg/dL 07/27/2024 11:18 AM CDT PCLX Site Capillary 07/27/2024 11:18 AM CDT PCLX Blood 07/27/2024 11:1 3 AM CDT 07/27/2024 11:18 AM CDT Unknown Provider LAB POCT ORDERABLES- MANUAL POC [facility] 200 [place] [address], [facility] PCLX [facility] POC 200 [place] [address] * Magnesium (07/27/2024 7:42 AM CDT) Pathologist [facility] Magnesium, S 2.1 1.7 - 2.3 mg/dL 07/27/2024 9:54 AM CDT DTL Blood (Blood, Venous) 07/27/2024 7:42 AM CDT 07/27/2024 8:17 AM CDT Yasmine Garduno M.D., Ph.D. LAB BLOOD ADD -ON [facility] [address] [place] [address], [facility] [address] [place] [address] * (ABNORMAL) Basic Metabolic Panel (07/27/2024 7:42 AM CDT) Pathologist [facility] Potassium, S 4.0 3.6 - 5.2 mmol/L 07/27/2024 10:11 AM CDT DTL Sodium, S 139 135 - 145 mmol/L 07/27/2024 10:11 AM CDT DTL Chloride, S 98 98 - 107 mmol/L 07/27/2024 10:11 AM CDT DTL Bicarbonate, S 27 22 - 29 mmol/L 07/27/2024 10:11 AM CDT DTL Anion Gap 14 7 - 15 07/27/2024 10:11 AM CDT DTL BUN (Blood Urea Nitrogen), S 45(H) 8 - 24 mg/dL 07/27/2024 10:11 AM CDT DTL Creatinine 2.26(H) 0.74 - 1.35 mg/dL 07/27/2024 10:11 AM CDT DTL Estimated GFR (eGFR) 30(L) >=60 mL/min/BSA 07/27/2024 10:11 AM CDT DTL Comment: Estimated GFR calculated using the 2020 CKD_EPI creatinine equation. Calcium, Total, S 9.2 8.8 - 10.2 mg/dL 07/27/2024 10:11 AM CDT DTL Glucose, S 118 70 - 140 mg/dL 07/27/2024 10:11 AM CDT DTL Blood (Blood, Venous) 07/27/2024 7:42 AM CDT 07/27/2024 8:16 AM CDT Barbara Jay B.Ch. LAB BLOO D ADD-ON [facility] [address] [place] [address], [facility] DTL [facility] [address] [place] [address] * (ABNORMAL) CBC with Differential, Blood (07/27/2024 7:42 AM CDT) Hemoglobin 12.0(L) 13.2 - 16.6 g/dL 07/27/2024 8:18 AM CDT DTL Hematocrit 38.0(L) 38.3 - 48.6 % 07/27/2024 8:18 AM CDT DTL Erythrocytes 4.12(L) 4.35 - 5.65 x10(12)/L 07/27/2024 8:18 AM CDT DTL MCV 92.2 78.2 - 97.9 fL 07/27/2024 8:18 AM CDT DTL RBC Distrib Width 15.0(H) 11.8 - 14.5 % 07/27/2024 8:18 AM CDT DTL Platelet Count 141 135 - 317 x10(9)/L 07/27/2024 8:18 AM CDT DTL Leukocytes 7.1 3.4 - 9.6 x10(9)/L 07/27/2024 8:18 AM CDT DTL Neutrophils 5.30 1.56 - 6.45 x10(9)/L 07/27/2024 8:18 AM CDT DHPM Lymphocytes 1.03 0.95 - 3.07 x10(9)/L 07/27/2024 8:18 AM CDT DTL Monocytes 0.65 0.26 - 0.81 x10(9)/L 07/27/2024 8:18 AM CDT DTL Eosinophils 0.04 0.03 - 0.48 x10(9)/L 07/27/2024 8:18 AM CDT DTL Basophils 0.03 0.01 - 0.08 x10(9)/L 07/27/2024 8:18 AM CDT DTL Blood (Blood, Venous) 07/27/2024 7:42 AM CDT 07/27/2024 8:05 AM CDT Barbara Jay B.Ch. LAB BLOO D ADD-ON Performing Organization Address City/[facility]/ZIP Co de Phone Number [facility] 200 [place] [address], [facility] DTL [facility] 200 [place], [place] [id number] [place] [address] 200 [place] [address] * Glucose, POCT (07/27/2024 7:41 AM CDT) Glucose, POCT, B 119 70 - 140 mg/dL 07/27/2024 7:49 AM CDT PCLX Site Capillary 07/27/2024 7:49 AM CDT PCLX Last Intake 1-2 hours 07/27/2024 7:49 AM CDT PCLX Blood 07/27/2024 7:41 AM CDT 07/27/2024 7:49 AM CDT Unknown Provider LAB POCT ORDERABLES- MANUAL POC [facility] 200 [place] [address], [facility] PCLX [facility] POC 200 [place] [address] * (ABNORMAL) Prothrombin Time (PT) (07/27/2024 7:41 AM CDT) Prothrombin Time, P 39.2(H) 9.4 - 12.5 sec 07/27/2024 8:56 AM CDT DTL INR 3.5 0.9 - 1.1 07/27/2024 8:56 AM CDT DTL Comment: ----ADDITIONAL INFORMATION---- Standard intensity warfarin therapeutic range: 2.0 to 3.0 ?? High intensity warfarin therapeutic range: 2.5 to 3.5 Blood (Blood, Venous) 07/27/2024 7:41 AM CDT 07/27/2024 8:04 AM CDT Neftaly Gomez M.D. LAB BLOOD ADD-ON [facility] 200 [place] [address], [facility] DTL [facility] 200 [place] [address] * Glucose, POCT (07/27/2024 6:54 AM CDT) Glucose, POCT, B 130 70 - 140 mg/dL 07/27/2024 7:13 AM CDT PCLX Blood 07/27/2024 6:54 AM CDT 07/27/2024 7:13 AM CDT Unknown Provider LAB POCT ORDERABLES- MANUAL Performing Organization Address City/[facility] Co de Phone Number POC [facility] 200 [place] [address], [facility] PCLX [facility] POC 200 [place] [address] * ECG 12 Lead (07/27/2024 5:27 AM CDT) Ventricular Rate ECG/Min 66 BPM MUSE DC Interval 136 ms MUSE QRSD Interval 76 ms MUSE QT Interval 358 ms MUSE QTC Interval 375 ms MUSE P [place] 40 degrees MUSE R [place] 63 degrees MUSE T Wave [place] 122 degrees MUSE 07/27/2024 5:27 AM CDT [...] Ph.D. ECG ORDERABLE S Performing Organization Address [facility] Co de Phone Number MUSE NA * (ABNORMAL) Glucose, POCT (07/26/2024 9:07 PM CDT) Glucose, POCT, B 145(H) 70 - 140 mg/dL 07/26/2024 9:09 PM CDT PCLX Last Intake 3-4 hours 07/26/2024 9:09 PM CDT PCLX Blood 07/26/2024 9:07 PM CDT 07/26/2024 9:09 PM CDT Unknown Provider LAB POCT ORDERABLES- MANUAL Performing Organization Address [facility] Co de Phone Number POC [facility] 200 [place] [address], [facility] PCLX [facility] POC [address] [place] [address] * (ABNORMAL) Glucose, POCT (07/26/2024 4:19 PM CDT) Glucose, POCT, B 177(H) 70 - 140 mg/dL 07/26/2024 4:22 PM CDT PCLX Site Capillary 07/26/2024 4:22 PM CDT PCLX Last Intake > 4 hours 07/26/2024 4:22 PM CDT PCLX Blood 07/26/2024 4:19 PM CDT 07/26/2024 4:22 PM CDT Unknown Provider LAB POCT ORDERABLES- MANUAL Performing Organization Address [facility] Co de Phone Number [facility] [address] [place] [address], [facility] PCLX [facility] POC 200 [place] [address] * (ABNORMAL) Glucose, POCT (07/26/2024 11:06 AM CDT) Glucose, POCT, B 364(H) 70 - 140 mg/dL 07/26/2024 11:08 AM CDT PCLX Last Intake 2-3 hours 07/26/2024 11:08 AM CDT PCLX Blood 07/26/2024 11:0 6 AM CDT 07/26/2024 11:09 AM CDT Unknown Provider LAB POCT ORDERABLES- MANUAL POC [facility] [address] PCLX [facility] POC 200 [place] [address] * (ABNORMAL) Troponin T, 5th Generation (07/26/2024 8:27 AM CDT) Pathologist [facility] Troponin T, 5th gen 110(H) <=15 ng/L 07/26/2024 9:08 AM CDT [facility] Comment:Consider acute myoca rdial injury Blood (Blood, Venous) 07/26/2024 8:27 AM CDT 07/26/2024 8:32 AM CDT Neftaly Gomez M.D. LAB BLOOD ADD-ON Performing Organization Address [facility] Co de Phone Number [facility] [address] [facility] [address] [place] [address] * Folate (07/26/2024 7:21 AM CDT) Folate, S 11.6 >=4.0 mcg/L 07/28/2024 8: 00 AM CDT DTL Blood (Blood, Venous) 07/26/2024 7:21 AM CDT 07/26/2024 8:10 AM CDT Yasmine Garduno M.D., Ph.D. LAB BLOOD ADD -ON Performing Organization Address City/[facility]/ZIP Co de Phone Number [facility] [address] DTL [facility] 200 [place] [address] * (ABNORMAL) Vitamin B12 Assay (07/26/2024 7:21 AM CDT) Pathologist [facility] Vitamin B12 Assay, S 1206(H) 180 [...] LAB BLOOD ADD -ON Performing Organization Address City/[facility]/ZIP Co de Phone Number [facility] 200 [place], [place] [address] 200 [place] [address] * Reticulocytes (07/26/2024 7:21 AM CDT) [facility] Reticulocytes, B 1.46 0.60 - 2.71 % 07/26/2024 8:09 AM CDT DTL Absolute Reticulocyte 62.8 30.4 - 110.9 x10(9)/L 07/26/2024 8:09 AM CDT DTL Blood (Blood, Venous) 07/26/2024 7:21 AM CDT 07/26/2024 7:55 AM CDT Yasmine Garduno M.D., Ph.D. LAB BLOOD ADD -ON [facility] 200 [place], [place] [phone] [place] [address] [facility] 200 [place] [address] * (ABNORMAL) Haptoglobin (07/26/2024 7:21 AM CDT) Haptoglobin, S <14(L) 30 - 200 mg/dL 07/29/2024 8:13 AM CDT [facility] Blood (Blood, Venous) 07/26/2024 7:21 AM CDT 07/28/2024 6:34 AM CDT Yasmine Garduno M.D., Ph.D. LAB BLOOD ADD -ON [facility] [address] [place] [address] [facility] [address] [place] [address] * Fibrinogen (07/26/2024 7:21 AM CDT) Fibrinogen, P 385 200 - 393 mg/dL 07/26/2024 8:23 AM CDT DT Blood (Blood, Venous) 07/26/2024 7:21 AM CDT 07/26/2024 7:56 AM CDT Yasmine Garduno M.D., Ph.D. LAB BLOOD ADD -ON [facility] [address] [place] [address], [facility] DTL [facility] [address] [place] [address] * Ferritin (07/26/2024 7:21 AM CDT) Ferritin, S 179 31 - 409 mcg/L 07/26/2024 8:46 AM CDT DT Blood (Blood, Venous) 07/26/2024 7:21 AM CDT 07/26/2024 8:10 AM CDT Yasmine Garduno M.D., Ph.D. LAB BLOOD ADD -ON [facility] 200 [place] [address], [facility] 200 [place] [address] * Iron and Total Iron-Binding Capacity (07/26/2024 7:21 AM CDT) Pathologist [facility] Iron 53 50 - 150 mcg/dL 07/26/2024 8:46 AM CDT DTL Total Iron Binding Capacity 270 250 - 400 mcg/dL 07/26/2024 8:46 AM CDT DTL Percent Saturation 20 14 - 50 % 07/26/2024 8:46 AM CDT DTL Blood (Blood, Venous) 07/26/2024 7:21 AM CDT 07/26/2024 8:10 AM CDT Yasmine Garduno M.D., Ph.D. LAB BLOOD ADD -ON [facility] 200 [place] [address], [facility] 200 [place] [address] * (ABNORMAL) Morphology Eval (special smear) (07/26/2024 7:21 AM CDT) [facility] Neutrophilic Segs and Bands 85(H) 50 - [...] LAB BLOOD ADD -ON Performing Organization Address City/[facility]/ZIP Co de Phone Number [facility] [address] [place] [address], [facility] [address] [place] [address] * (ABNORMAL) Basic Metabolic Panel (07/26/2024 7:21 AM CDT) [facility] Potassium, S 4.1 3.6 - 5.2 mmol/L 07/26/2024 8:26 AM CDT DTL Sodium, S 140 135 - 145 mmol/L 07/26/2024 8:26 AM CDT DTL Chloride, S 100 98 - 107 mmol/L 07/26/2024 8:26 AM CDT DTL Bicarbonate, S 27 22 - 29 mmol/L 07/26/2024 8:26 AM CDT DTL Anion Gap 13 7 - 15 07/26/2024 8:26 AM CDT DTL BUN (Blood Urea Nitrogen), S 37(H) 8 - 24 mg/dL 07/26/2024 8:26 AM CDT DTL Creatinine 2.27(H) 0.74 - 1.35 mg/dL 07/26/2024 8:26 AM CDT DTL Estimated GFR (eGFR) 30(L) >=60 mL/min/BSA 07/26/2024 8:26 AM CDT DTL Comment: Estimated GFR calculated using the 2020 CKD_EPI creatinine equation. Calcium, Total, S 9.4 8.8 - 10.2 mg/dL 07/26/2024 8:26 AM CDT DTL Glucose, S 159(H) 70 - 140 mg/dL 07/26/2024 8:26 AM CDT DTL Blood (Blood, Venous) 07/26/2024 7:21 AM CDT 07/26/2024 8:09 AM CDT Neftaly Gomez M.D. LAB BLOOD ADD-ON [facility] [address] [place] [address], [facility] [address] [place] [address] * (ABNORMAL) CBC with Differential, Blood (07/26/2024 7:21 AM CDT) [facility] Hemoglobin 12.3(L) 13.2 - 16.6 g/dL 07/26/2024 8:08 AM CDT DTL Hematocrit 39.4 38.3 - 48.6 % 07/26/2024 8:08 AM CDT DTL Erythrocytes 4.31(L) 4.35 - 5.65 x10(12)/L 07/26/2024 8:08 AM CDT DTL MCV 91.4 78.2 - 97.9 fL 07/26/2024 8:08 AM CDT DTL RBC Distrib Width 14.9(H) 11.8 - 14.5 % 07/26/2024 8:08 AM CDT DTL Platelet Count 129(L) 135 - 317 x10(9)/L 07/26/2024 8:54 AM CDT DTL Comment:Results confirmed by smear, no clumping or interference seen. Leukocytes 5.5 3.4 - 9.6 x10(9)/L 07/26/2024 8:54 AM CDT DTL Neutrophils 4.50 1.56 - 6.45 x10(9)/L 07/26/2024 8:08 AM CDT DH[facility] Lymphocytes 0.63(L) 0.95 - 3.07 x10(9)/L 07/26/2024 8:08 AM CDT DTL Monocytes 0.31 0.26 - 0.81 x10(9)/L 07/26/2024 8:08 AM CDT DTL Eosinophils <0.03 0.03 - 0.48 x10(9)/L 07/26/2024 8:08 AM CDT DTL Basophils <0.03 0.01 - 0.08 x10(9)/L 07/26/2024 8:08 AM CDT DTL Blood (Blood, Venous) 07/26/2024 7:21 AM CDT 07/26/2024 7:55 AM CDT Neftaly Gomez M.D. LAB BLOOD ADD-ON [facility] 200 [place], [place] [address] [address] [place], [place] [phone] [place] [address] 200 [place] [address] * (ABNORMAL) Prothrombin Time (PT) (07/26/2024 7:21 AM CDT) Pathologist [facility] Prothrombin Time, P 30.2(H) 9.4 - 12.5 sec 07/26/2024 8:23 AM CDT DT INR 2.7 0.9 - 1.1 07/26/2024 8:23 AM CDT DT Comment: ----ADDITIONAL INFORMATION---- Standard intensity warfarin therapeutic range: 2.0 to 3.0 ?? High intensity warfarin therapeutic range: 2.5 to 3.5 Blood (Blood, Venous) 07/26/2024 7:21 AM CDT 07/26/2024 7:54 AM CDT Neftaly Gomez M.D. LAB BLOOD ADD-ON Performing Organization Address [facility] Co de Phone Number [facility] 200 [place], [place] [address] 200 [place] [address] * (ABNORMAL) Glucose, POCT (07/26/2024 7:20 AM CDT) Pathologist [facility] Glucose, POCT, B 163(H) 70 - 140 mg/dL 07/26/2024 7:22 AM CDT PCLX Site Capillary 07/26/2024 7:22 AM CDT PCLX Last Intake 2-3 hours 07/26/2024 7:22 AM CDT PCLX Blood 07/26/2024 7:20 AM CDT 07/26/2024 7:22 AM CDT Unknown Provider LAB POCT ORDERABLES- MANUAL POC [facility] [address] [place], [place] [id number] [place] [address] PCLX [facility] POC [address] [place] [address] * Glucose, POCT (07/25/2024 8:34 PM CDT) Pathologist [facility] Glucose, POCT, B 121 70 - 140 mg/dL 07/25/2024 8:37 PM CDT PCLX Last Intake 2-3 hours 07/25/2024 8:37 PM CDT PCLX Blood 07/25/2024 8:34 PM CDT 07/25/2024 8:37 PM CDT Unknown Provider LAB POCT ORDERABLES- MANUAL Performing Organization Address City/[facility]/ZIP Co de Phone Number [facility] 200 [place] [address], [facility] PCLX [facility] POC [address] [place] [address] * (ABNORMAL) Troponin T, 6h, 5th Gen (07/25/2024 7:26 PM CDT) [facility] Troponin T, 6 hr, 5th gen 106(H) [...] LAB BLOO D TROPONIN Performing Organization Address City/[facility]/ZIP Co de Phone Number [facility] [address] [place] [address], [facility] STMA [facility] [address] [place] [address] * (ABNORMAL) Glucose, POCT (07/25/2024 4:25 PM CDT) Pathologist [facility] Glucose, POCT, B 174(H) 70 - 140 mg/dL 07/25/2024 4:30 PM CDT PCLX Site Capillary 07/25/2024 4:30 PM CDT PCLX Blood 07/25/2024 4:25 PM CDT 07/25/2024 4:30 PM CDT Unknown Provider LAB POCT ORDERABLES- MANUAL Performing Organization Address City/[facility] Co de Phone Number POC [facility] [address] [place] [address], [facility] PCLX [facility] POC [address] [place] [address] * (ABNORMAL) Troponin T, 2 Hour with 6 Hour Reflex, 5th Gen (07/25/2024 3:42 PM CDT) [facility] Troponin T, 2 hr, 5th gen 131(H) <=15 ng/L 07/25/2024 4:11 PM CDT [facility] Comment:Consider acute myoca rdial injury 2H Delta % 9 % 07/25/2024 4:11 PM CDT [facility] Comment:6 hour collection pe nding. 2H Delta Interp Not Changing 07/25/2024 4:11 PM CDT [facility] Blood 07/25/2024 3:42 PM CDT 07/25/2024 3:47 PM CDT Barbara Jay, B.Ch. LAB BLOO D TROPONIN Performing Organization Address City/[facility] Co de Phone Number [facility] [address] [place] [address], [facility] STMA [facility] [address] [place] [address] * (TTE) 2D ECHO DOPPLER COLOR (07/25/2024 3:24 PM CDT) [facility] Ejection Fraction 65 MC CV EIMS LV [...] CABG x1, PVI, and DAHIANA amputation (19-SEP-2023, [place]). 3. Small left ventricular chamber size. Abnormal [...] CABG x1, PVI, and DAHIANA amputation (19-SEP-2023, [place]). Echocardiogram performed per left ventricular function protocol [...] prosthesis, CABG x1,PVI, and DAHIANA amputation (19-SEP-2023, [place]). 3. Small left ventricular chamber size. Abnormal [...] 5. 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 The distal andapical right ventricular tate also show signs of tethering. 6. A large pleural effusion is present. 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 Echocardiogram performed per leftventricular function protocol + [...] Yasmine Garduno M.D., Ph.D. CV ECHO PROCE TERI * (ABNORMAL) Prothrombin Time (PT) (07/25/2024 2:04 PM CDT) [facility] Prothrombin Time, P 31.9(H) 9.4 - 12.5 sec 07/25/2024 2:39 PM CDT [facility] INR 2.9 0.9 - 1.1 07/25/2024 2:39 PM CDT [facility] Comment: ----ADDITIONAL INFORMATION---- Standard intensity warfarin therapeutic range: 2.0 to 3.0 ?? High intensity warfarin therapeutic range: 2.5 to 3.5 Blood (Blood, Venous) 07/25/2024 2:04 PM CDT 07/25/2024 2:20 PM CDT Yasmine Garduno M.D., Ph.D. LAB BLOOD ADD -ON Performing Organization Address City/[facility]/ZIP Co de Phone Number [facility] [address] [place] [address] * (ABNORMAL) CRP (C-Reactive Protein) (07/25/2024 1:50 PM CDT) [facility] C-Reactive Protein (CRP), S 6.1(H) <5.0 mg/L 07/25/2024 3:06 PM CDT [facility] Blood (Blood, Venous) 07/25/2024 1:50 PM CDT 07/25/2024 2:44 PM CDT Neftaly Gomez M.D. LAB BLOOD ADD-ON Performing Organization Address City/[facility]/ZIP Co de Phone Number [facility] [address] [place] [address] * (ABNORMAL) Troponin T, Baseline with 2 Hour/6 Hour Reflex Biomarker Panel (07/25/2024 1:50 PM CDT) [facility] Troponin T, Baseline, 5th gen 120(H) <=15 ng/L 07/25/2024 2:22 PM CDT [facility] Comment:Consider acute myoca rdial injury Blood (Blood, Venous) 07/25/2024 1:50 PM CDT 07/25/2024 2:05 PM CDT Neftaly Gomez M.D. LAB BLOOD TROPONIN Performing Organization Address [facility]/ZIP Co de Phone Number [facility] [address] [place] [facility] [address] [place] [address] * Sedimentation Rate (07/25/2024 1:49 PM CDT) Pathologist [facility] Sedimentation Rate, B 13 3 - 28 mm/h 07/25/2024 4:17 PM CDT DTL Blood (Blood, Venous) 07/25/2024 1:49 PM CDT 07/25/2024 2:36 PM CDT Neftaly Gomez M.D. LAB BLOOD ADD-ON Performing Organization Address [facility] Co de Phone Number [facility] [address] [place] [address], [facility] DTL [facility] [address] [place] [address] * ECG 12 Lead (07/25/2024 1:34 PM CDT) Ventricular Rate ECG/Min 74 BPM MUSE DC Interval 144 ms MUSE QRSD Interval 70 ms MUSE QT Interval 340 ms MUSE QTC Interval 377 ms MUSE P [place] 51 degrees MUSE R [place] 64 degrees MUSE T Wave [place] 264 degrees MUSE 07/25/2024 1:34 PM CDT 07/25/2024 1:41 PM CDT Impressions MUSE - 07/25/2024 1:41 PM CDT Normal sinus rhythm Low voltage QRS Low anterior forces Nonspecific T wave abnormality When compared with ECG of 24-Jul-2024 17:08, No significant change was found Reviewed by MARIELA Chopra Narrative Procedure Note Joe Kumar Jr., M.D. - 07/25/2024 IMPRESSION: Normal sinus rhythm Low voltage QRS Low anterior forces Nonspecific T wave abnormality When compared with ECG of 24-Jul-2024 17:08, No significant change was found Reviewed by MARIELA Chopra Neftaly Gomez M.D. ECG ORDERABLES MUSE NA * (ABNORMAL) Basic Metabolic Panel (07/25/2024 4:07 AM CDT) Potassium, S 3.7 3.6 - 5.2 mmol/L 07/25/2024 4:49 AM CDT DTL Sodium, S 143 135 - 145 mmol/L 07/25/2024 4:49 AM CDT DTL Chloride, S 106 98 - 107 mmol/L 07/25/2024 4:49 AM CDT DTL Bicarbonate, S 28 22 - 29 mmol/L 07/25/2024 4:49 AM CDT DTL Anion Gap 9 7 - 15 07/25/2024 4:49 AM CDT DTL BUN (Blood Urea Nitrogen), S 33(H) 8 - 24 mg/dL 07/25/2024 4:49 AM CDT DTL Creatinine 2.22(H) 0.74 - 1.35 mg/dL 07/25/2024 4:49 AM CDT DTL Estimated GFR (eGFR) 31(L) >=60 mL/min/BSA 07/25/2024 4:49 AM CDT DTL Comment: Estimated GFR calculated using the 2020 CKD_EPI creatinine equation. Calcium, Total, S 8.9 8.8 - 10.2 mg/dL 07/25/2024 4:49 AM CDT DTL Glucose, S 117 70 - 140 mg/dL 07/25/2024 4:49 AM CDT DTL Blood (Blood, Venous) 07/25/2024 4:07 AM CDT 07/25/2024 4:35 AM CDT Fanny Goodwin M.D., M.S. LAB BLOOD AD D-ON Performing Organization Address City/[facility]/ZIP Co de Phone Number [facility] [address] [place] [address], [facility] DTL [facility] [address] [place] [address] * (ABNORMAL) Basic Metabolic Panel (07/24/2024 11:51 PM CDT) Potassium, P 3.8 3.6 - 5.2 mmol/L 07/25/2024 12:30 AM CDT DTL Sodium, P 142 135 - 145 mmol/L 07/25/2024 12:30 AM CDT DTL Chloride, P 104 98 - 107 mmol/L 07/25/2024 12:30 AM CDT DTL Bicarbonate, P 29 22 - 29 mmol/L 07/25/2024 12:30 AM CDT DTL Anion Gap, P 9 7 - 15 07/25/2024 12:30 AM CDT DTL BUN (Blood Urea Nitrogen), P 33(H) 8 - 24 mg/dL 07/25/2024 12:30 AM CDT DTL Creatinine 2.15(H) 0.74 - 1.35 mg/dL 07/25/2024 12:30 AM CDT DTL Estimated GFR (eGFR) 32(L) >=60 mL/min/BSA 07/25/2024 12:30 AM CDT DTL Comment: Estimated GFR calculated using the 2020 CKD_EPI creatinine equation. Calcium, Total, P 8.8 8.8 - 10.2 mg/dL 07/25/2024 12:30 AM CDT DTL Glucose, P 177(H) 70 - 140 mg/dL 07/25/2024 12:30 AM CDT DTL Blood (Blood, Venous) 07/24/2024 11:51 PM CDT 07/25/2024 12:03 AM CDT Fanny Goodwin M.D., M.S. LAB BLOOD AD D-ON Performing Organization Address City/[facility]/ZIP Co de Phone Number [facility] [address] [place] [address], [facility] DTL [facility] [address] [place] [address] * (ABNORMAL) Troponin T, 6h, 5th Gen (07/24/2024 11:51 PM CDT) Troponin T, 6 hr, 5th gen 110(H) <=15 ng/L 07/25/2024 12:38 AM CDT STMA Comment:Consider acute myoca rdial injury 6H Delta % 1 % 07/25/2024 12:38 AM CDT STMA 6H Delta Interp Not Changing 07/25/2024 12:38 AM CDT STMA Blood 07/24/2024 11:5 1 PM CDT 07/24/2024 11:56 PM CDT Quin Smith P.A.-C., M.S. LAB BLOOD TROPONIN Performing Organization Address City/[facility]/ZIP Co de Phone Number [facility] [address] [place] [address], [facility] [address] [place] [address] * (ABNORMAL) Troponin T, 2 Hour with 6 Hour Reflex, 5th Gen (07/24/2024 7:28 PM CDT) Troponin T, 2 hr, 5th gen 107(H) <=15 ng/L 07/24/2024 8:00 PM CDT STMA Comment:Consider acute myoca rdial injury 2H Delta % -2 % 07/24/2024 8:00 PM CDT STMA Comment:6 hour collection pe nding. 2H Delta Interp Not Changing 07/24/2024 8:00 PM CDT STMA Blood 07/24/2024 7:28 PM CDT 07/24/2024 7:51 PM CDT Quin Smith P.A.-C., M.S. LAB BLOOD TROPONIN [facility] [address] [place] [address], [facility] STMA [facility] [address] [place] [address] * DX Chest AP or PA and [...] of the spine. Fanny Goodwin M.D., M.S. [facility] * (ABNORMAL) Prothrombin Time (PT) (07/24/2024 5:20 PM CDT) Prothrombin Time, P 37.0(H) 9.4 - 12.5 sec 07/24/2024 5:37 PM CDT STMA INR 3.3 0.9 - 1.1 07/24/2024 5:37 PM CDT STMA Comment: ----ADDITIONAL INFORMATION---- Standard intensity warfarin therapeutic range: 2.0 to 3.0 ?? High intensity warfarin therapeutic range: 2.5 to 3.5 Blood (Blood, Venous) 07/24/2024 5:20 PM CDT 07/24/2024 5:30 PM CDT Fanny Goodwin M.D., M.S. LAB BLOOD AD D-ON Performing Organization Address City/[facility]/ZIP Co de Phone Number [facility] [address] [place] [address] * (ABNORMAL) Troponin T, Baseline with 2 Hour/6 Hour Reflex Biomarker Panel (07/24/2024 5:20 PM CDT) Troponin T, Baseline, 5th gen 109(H) <=15 ng/L 07/24/2024 5:55 PM CDT [facility] Comment:Consider acute myoca rdial injury Blood (Blood, Venous) 07/24/2024 5:20 PM CDT 07/24/2024 5:30 PM CDT Fanny Goodwin M.D., MJarrettS. LAB BLOOD TR OPONIN Performing Organization Address [facility] Co de Phone Number [facility] [address] [place] [address], [address] [address] * (ABNORMAL) NT-Pro B-Type Natriuretic Peptide (BNP) (07/24/2024 5:20 PM CDT) NT-Pro BNP 4826(H) <=540 pg/mL 07/24/2024 5:55 PM CDT [facility] Comment: NT-proBNP values less than 300 pg/mL [...] Goodwin M.D., M.S. LAB BLOOD AD D-ON [facility] [address] [place] [address], [facility] [address] [place] [address] * (ABNORMAL) CBC with Differential, Blood (07/24/2024 5:20 PM CDT) Hemoglobin 12.1(L) 13.2 - 16.6 g/dL 07/24/2024 5:33 PM CDT STMA Hematocrit 38.0(L) 38.3 - 48.6 % 07/24/2024 5:33 PM CDT STMA Erythrocytes 4.12(L) 4.35 - 5.65 x10(12)/L 07/24/2024 5:33 PM CDT ST[facility] MCV 92.2 78.2 - 97.9 fL 07/24/2024 5:33 PM CDT [facility] RBC Distrib Width 15.1(H) 11.8 - 14.5 % 07/24/2024 5:33 PM CDT [facility] Platelet Count 126(L) 135 - 317 x10(9)/L 07/24/2024 6:23 PM CDT [facility] Comment:Results confirmed by smear, no clumping or interference seen. Leukocytes 5.2 3.4 - 9.6 x10(9)/L 07/24/2024 6:23 PM CDT ST[facility] Neutrophils 3.70 1.56 - 6.45 x10(9)/L 07/24/2024 5:33 PM CDT [facility] Lymphocytes 0.80(L) 0.95 - 3.07 x10(9)/L 07/24/2024 5:33 PM CDT ST[facility] Monocytes 0.56 0.26 - 0.81 x10(9)/L 07/24/2024 5:33 PM CDT ST[facility] Eosinophils 0.09 0.03 - 0.48 x10(9)/L 07/24/2024 5:33 PM CDT ST[facility] Basophils <0.03 0.01 - 0.08 x10(9)/L 07/24/2024 5:33 PM CDT ST[facility] Blood (Blood, Venous) 07/24/2024 5:20 PM CDT 07/24/2024 5:30 PM CDT Fanny Goodwin M.D., M.S. LAB BLOOD AD D-ON [facility] [address] [place] [address], [facility] STMA [facility] [address] [place] [address] [facility] [address] [place] [address] * (ABNORMAL) Basic Metabolic Panel (07/24/2024 5:20 PM CDT) [facility] Potassium, P 4.1 3.6 - 5.2 mmol/L 07/24/2024 5:47 PM CDT STMA Sodium, P 143 135 - 145 mmol/L 07/24/2024 5:47 PM CDT STMA Chloride, P 103 98 - 107 mmol/L 07/24/2024 5:47 PM CDT STMA Bicarbonate, P 28 22 - 29 mmol/L 07/24/2024 5:47 PM CDT STMA Anion Gap, P 12 7 - 15 07/24/2024 5:47 PM CDT [facility] BUN (Blood Urea Nitrogen), P 32(H) 8 - 24 mg/dL 07/24/2024 5:47 PM CDT ST[facility] Creatinine 2.03(H) 0.74 - 1.35 mg/dL 07/24/2024 5:47 PM CDT STMA Estimated GFR (eGFR) 34(L) >=60 mL/min/BSA 07/24/2024 5:47 PM CDT STMA Comment: Estimated GFR calculated using the 2020 CKD_EPI creatinine equation. Calcium, Total, P 9.3 8.8 - 10.2 mg/dL 07/24/2024 5:47 PM CDT STMA Glucose, P 159(H) 70 - 140 mg/dL 07/24/2024 5:47 PM CDT STMA Blood (Blood, Venous) 07/24/2024 5:20 PM CDT 07/24/2024 5:30 PM CDT Fanny Goodwin M.D., M.S. LAB BLOOD AD D-ON Performing Organization Address [facility] Co de Phone Number [facility] [address] [place] [address], [facility] STMA [facility] [address] [place] [address] * ECG 12 Lead (07/24/2024 5:08 PM CDT) Ventricular Rate ECG/Min 73 BPM MUSE DC Interval 136 ms MUSE QRSD Interval 76 ms MUSE QT Interval 414 ms MUSE QTC Interval 456 ms MUSE P [place] 44 degrees MUSE R [place] 50 degrees MUSE T Wave [place] 87 degrees MUSE 07/24/2024 5:08 PM CDT 07/24/2024 5:19 PM CDT Impressions MUSE - 07/24/2024 5:16 PM CDT Normal sinus rhythm Low voltage QRS in limb leads Low anterior forces Nonspecific ST and T wave abnormality When compared with ECG of 24-Dec-2023 10:12, No significant change was found Revised Report Narrative Procedure Note Mundo Ching M.D. - 07/24/2024 IMPRESSION: Normal sinus rhythm Low voltage QRS in limb leads Low anterior forces Nonspecific ST and T wave abnormality When compared with ECG of 24-Dec-2023 10:12, No significant change was found Revised Report Fanny Goodwin M.D., M.S. ECG ORDERABL ES Performing Organization Address [facility] Co de Phone Number MUSE NA documented in this encounter Visit Diagnoses Diagnosis Edema Leg- Primary Edema Leg Shortness Of Breath Effusion Pleural Diabetes Mellitus Type 2 (HCC) Prosthesis Aortic Valve documented in this encounter Admitting Diagnoses Diagnosis Edema Leg documented in this encounter Administered Medications Inactive Administered Medications - up to 3 most recent administrations Medication Order MAR Action Action Date Dose Rate Site aspirin chewable tablet 81 mg 81 mg, oral, Daily, First dose on Sun07/25/24 at 0900 Given 08/01/2024 8:59 AM CDT 81 mg Given 07/31/2024 8:39 AM CDT 81 mg Given 07/30/2024 8:04 AM CDT 81 mg atorvastatin tablet 80 mg (Lipitor) 80 mg, oral, Daily at bedtime, First dose on Carissa 07/24/24 at 2117 Given 07/31/2024 7:58 PM CDT 80 mg Given 07/30/2024 9:24 PM CDT 80 mg Given 07/29/2024 8:17 PM CDT 80 mg colchicine tablet 0.3 mg (Colcrys) 0.3 mg, oral, Daily, First dose on Sun07/25/24 at 0900 Given 07/26/2024 8:04 AM CDT 0.3 mg Given 07/25/2024 8:33 AM CDT 0.3 mg colchicine tablet 0.6 mg (Colcrys) 0.6 mg, oral, Daily, First dose (after last modification) on Sun07/27/24 at 0900 Given 08/01/2024 8:59 AM CDT 0.6 mg Given 07/31/2024 8:40 AM CDT 0.6 mg Given 07/30/2024 8:04 AM CDT 0.6 mg finasteride tablet 5 mg (Proscar) 5 mg, oral, Daily, First dose on Sun07/25/24 at 0900, See tube feeding guidelines for tube feeding administration instructions. Given 08/01/2024 9:10 AM CDT 5 mg Given 07/31/2024 8:40 AM CDT 5 mg Given 07/30/2024 8:03 AM CDT 5 mg furosemide 120 mg in NaCl 0.9% IVPB (Lasix) 120 mg, intravenous, at 124 mL/hr, Administer over 30 Minutes, Once, On Sun07/25/24 at 1515, For 1 dose, Adults: Doses less than 120 mg: IV push over 20 mg/minute. Doses 120 mg or greater: IVPB at 4 mg/minute. Peds/Neonates: Doses less than 120 mg over 0.5 mg/kg/minute. Doses 120 mg or greater: IVPB at 4 mg/minute. Do NOT refrigerate. New Bag 07/25/2024 3:48 PM CDT 120 mg 124 mL/hr furosemide 120 mg in NaCl 0.9% IVPB (Lasix) 120 mg, intravenous, at 124 mL/hr, Administer over 30 Minutes, Once, On Sun07/26/24 at 1015, For 1 dose, Adults: Doses less than 120 mg: IV push over 20 mg/minute. Doses 120 mg or greater: IVPB at 4 mg/minute. Peds/Neonates: Doses less than 120 mg over 0.5 mg/kg/minute. Doses 120 mg or greater: IVPB at 4 mg/minute. Do NOT refrigerate. New Bag 07/26/2024 10:42 AM CDT 120 mg 124 mL/hr furosemide 120 mg in NaCl 0.9% IVPB (Lasix) 120 mg, intravenous, at 124 mL/hr, Administer over 30 Minutes, Once, On Sun07/27/24 at 1115, For 1 dose, Adults: Doses less than 120 mg: IV push over 20 mg/minute. Doses 120 mg or greater: IVPB at 4 mg/minute. Peds/Neonates: Doses less than 120 mg over 0.5 mg/kg/minute. Doses 120 mg or greater: IVPB at 4 mg/minute. Do NOT refrigerate. New Bag 07/27/2024 12:17 PM CDT 120 mg 124 mL/hr furosemide 120 mg in NaCl 0.9% IVPB (Lasix) 120 mg, intravenous, at 124 mL/hr, Administer over 30 Minutes, Once, On Sun07/28/24 at 1030, For 1 dose, Adults: Doses less than 120 mg: IV push over 20 mg/minute. Doses 120 mg or greater: IVPB at 4 mg/minute. Peds/Neonates: Doses less than 120 mg over 0.5 mg/kg/minute. Doses 120 mg or greater: IVPB at 4 mg/minute. Do NOT refrigerate. New Bag 07/28/2024 10:17 AM CDT 120 mg 124 mL/hr furosemide 120 mg in NaCl 0.9% IVPB (Lasix) 120 mg, intravenous, at 124 mL/hr, Administer over 30 Minutes, Once, On Sun07/29/24 at 1645, For 1 dose, Adults: Doses less than 120 mg: IV push over 20 mg/minute. Doses 120 mg or greater: IVPB at 4 mg/minute. Peds/Neonates: Doses less than 120 mg over 0.5 mg/kg/minute. Doses 120 mg or greater: IVPB at 4 mg/minute. Do NOT refrigerate. New Bag 07/29/2024 4:53 PM CDT 120 mg 124 mL/hr furosemide 160 mg in NaCl 0.9% IVPB (Lasix) 160 mg, intravenous, at 66 mL/hr, Administer over 60 Minutes, Once, On 07/26/24 at 1630, For 1 dose, Adults: Doses less than 120 mg: IV push over 20 mg/minute. Doses 120 mg or greater: IVPB at 4 mg/minute. Peds/Neonates: Doses less than 120 mg over 0.5 mg/kg/minute. Doses 120 mg or greater: IVPB at 4 mg/minute. Do NOT refrigerate. New Bag 07/26/2024 5:23 PM CDT 160 mg 66 mL/hr furosemide 160 mg in NaCl 0.9% IVPB (Lasix) 160 mg, intravenous, at 66 mL/hr, Administer over 60 Minutes, Once, On 07/27/24 at 1745, For 1 dose, Adults: Doses less than 120 mg: IV push over 20 mg/minute. Doses 120 mg or greater: IVPB at 4 mg/minute. Peds/Neonates: Doses less than 120 mg over 0.5 mg/kg/minute. Doses 120 mg or greater: IVPB at 4 mg/minute. Do NOT refrigerate. New Bag 07/27/2024 5:51 PM CDT 160 mg 66 mL/hr furosemide injection 80 mg (Lasix) 80 mg, intravenous, Once, On Carissa 07/24/24 at 2046, For 1 dose, Adults: Doses less than 120 mg: IV push over 20 mg/minute. Doses 120 mg or greater: IVPB at 4 mg/minute. Peds/Neonates: Doses less than 120 mg over 0.5 mg/kg/minute. Doses 120 mg or greater: IVPB at 4 mg/minute. Given 07/24/2024 8:58 PM CDT 80 mg glipiZIDE 24 hr tablet 5 mg (GlucotroL XL) 5 mg, oral, Daily with morning meal, First dose on Sun07/25/24 at 0800, Swallow whole. Do NOT crush, chew, or split tablet., On hold since Sun07/25/2024 at 1302 until manually unheld Given 07/25/2024 10:08 AM CDT 5 mg glycerin suppository 2 g 2 g, rectal, Daily PRN, constipation, Starting on Sun07/30/24 at 0736 insulin aspart U-100 (Carbohydrate Count) injection 0-20 Units (NovoLOG FlexPen) 0-20 Units, subcutaneous, 3 times daily with meals, First dose on Sun07/30/24 at 0830, Simple or Complex Ratio: Simple, Carb Ratio - Simple (1 unit per __ grams of carbohydrates): 10 Given 08/01/2024 12:43 PM CDT 8 Units Left Lower Abdomen Given 08/01/2024 9:02 AM CDT 6 Units Le ft Lower Abdomen Given 07/31/2024 6:21 PM CDT 8 Units Ri ght Upper Arm (Back) insulin aspart U-100 injection 0-13 Units (NovoLOG FlexPen) 0-13 Units, subcutaneous, 3 times daily, First dose on Sun07/25/24 at 1700, Insulin Scale: Moderate Correction Scale, 140 - 179: 2 units, 180 - 219: 4 units, 220 - 259: 6 units, 260 - 299: 8 units, 300 - 339: 10 units, 340 - 379: 12 units, 380 - 399: 13 units, Greater than 399: Call service writing Insulin orders Given 07/26/2024 11:10 AM CDT 12 Units Right Lower Abdomen Given 07/26/2024 8:04 AM CDT 2 Units Ri ght Upper Abdomen Given 07/25/2024 6:16 PM CDT 2 Units Ri ght Upper Arm (Back) insulin aspart U-100 injection 0-13 Units (NovoLOG FlexPen) 0-13 Units, subcutaneous, 4 times daily with meals and bedtime, First dose (after last modification) on Sun07/26/24 at 1700, Insulin Scale: Moderate Correction Scale, 140 - 179: 2 units, 180 - 219: 4 units, 220 - 259: 6 units, 260 - 299: 8 units, 300 - 339: 10 units, 340 - 379: 12 units, 380 - 399: 13 units, Greater than 399: Call service writing Insulin orders Given 07/29/2024 9:41 PM CDT 6 Units Left Upper Arm (Back ) Given 07/29/2024 4:52 PM CDT 6 Units Le ft Upper Arm (Back) Given 07/29/2024 11:31 AM CDT 4 Units L eft Upper Arm (Back) insulin aspart U-100 injection 0-13 Units (NovoLOG FlexPen) 0-13 Units, subcutaneous, 3 times daily with meals, First dose (after last modification) on Sun07/30/24 at 1200, Insulin Scale: Moderate Correction Scale, 140 - 179: 2 units, 180 - 219: 4 units, 220 - 259: 6 units, 260 - 299: 8 units, 300 - 339: 10 units, 340 - 379: 12 units, 380 - 399: 13 units, Greater than 399: Call service writing Insulin orders Given 08/01/2024 12:43 PM CDT 2 Units Left Lower Abdomen Given 08/01/2024 6:43 AM CDT 2 Units Le ft Lower Abdomen Given 07/31/2024 12:44 PM CDT 6 Units L eft Upper Arm (Back) insulin aspart U-100 injection 0-7 Units (NovoLOG FlexPen) 0-7 Units, subcutaneous, Daily at bedtime, First dose on Sun07/30/24 at 2100, Insulin Scale: Modified Bedtime Correction Scale, 220-259: 3 units, 260-299: 4 units, 300-339: 5 units, 340-379: 6 units, 380-399: 7 units, Greater than 399: Call service writing insulin orders Given 07/31/2024 10:11 PM CDT 4 Units Left Lower Abdomen insulin NPH injection 10 Units 10 Units, subcutaneous, 2 times daily with meals, First dose on 07/26/24 at 1700 Given 07/30/2024 8:04 AM CDT 10 Units Left Upper Arm (Back ) Given 07/29/2024 4:52 PM CDT 10 Units Le ft Upper Arm (Back) Given 07/29/2024 8:17 AM CDT 10 Units Le ft Upper Arm (Back) insulin NPH injection 10 Units 10 Units, subcutaneous, Every morning, First dose (after last modification) on Carissa 07/31/24 at 0900 Given 08/01/2024 9:03 AM CDT 10 Units Left Lower Abdomen Given 07/31/2024 8:40 AM CDT 10 Units Ri ght Upper Arm (Back) insulin NPH injection 6 Units 6 Units, subcutaneous, Every evening, First dose on Sun07/30/24 at 1800 Given 07/30/2024 6:10 PM CDT 6 Units Left Upper Arm (Back ) metOLazone tablet 2.5 mg (Zaroxolyn) 2.5 mg, oral, Once, On Sun07/27/24 at 1045, For 1 dose Given 07/27/2024 11:19 AM CDT 2.5 mg metoprolol succinate 24 hr tablet 50 mg (Toprol XL) 50 mg, oral, Daily, First dose on Sun07/25/24 at 0900, Do NOT crush or chew. Tablet may be split on score if needed. Given 08/01/2024 8:59 AM CDT 50 mg Given 07/31/2024 8:40 AM CDT 50 mg Given 07/30/2024 8:04 AM CDT [address] tablet 40 mg (Protonix) 40 mg, oral, Daily before morning meal, First dose on Sun07/27/24 at 0700, Swallow whole. Do NOT crush, chew, or split tablet. Given 08/01/2024 6:43 AM CDT 40 mg Given 07/31/2024 6:09 AM CDT 40 mg Given 07/30/2024 6:17 AM CDT 40 mg polyethylene glycol powder packet 17 g (Miralax) 17 g, oral, 2 times daily, First dose on Sun07/30/24 at 0900, Dissolve in 240 mLs (8 ounces) of water prior to giving. Avoid mixing with starch-based thickened liquids. Given 07/31/2024 7:58 PM CDT 17 g Given 07/30/2024 8:03 AM CDT 17 g potassium chloride ER tablet 20 mEq 20 mEq, oral, Once, On Sun07/29/24 at 1745, For 1 dose, For K 3-3.4 mEq/L - give total of 20 mEq Swallow whole. Do NOT crush, chew, or split tablet., Monitor the following for replacement: Potassium, Replace Potassium per: Standard Schedule Given 07/29/2024 5:36 PM CDT 20 mEq potassium chloride ER tablet 40 mEq 40 mEq, oral, Once, On Sun07/28/24 at 1615, For 1 dose, For K 3-3.4 mEq/L - give total of 40 mEq Swallow whole. Do NOT crush, chew, or split tablet., Monitor the following for replacement: Potassium, Replace Potassium per: Standard Schedule Given 07/28/2024 4:02 PM CDT 40 mEq predniSONE tablet 20 mg (Deltasone) 20 mg, oral, Once, On Sun07/25/24 at 1830, For 1 dose Given 07/25/2024 6:16 PM CDT 20 mg predniSONE tablet 20 mg (Deltasone) 20 mg, oral, Daily, First dose on Sun07/26/24 at 0900 Given 08/01/2024 8:59 AM CDT 20 mg Given 07/31/2024 8:40 AM CDT 20 mg Given 07/30/2024 8:03 AM CDT 20 mg rOPINIRole tablet 0.5 mg (Requip) 0.5 mg, oral, 3 times daily, First dose on Sun07/24/24 at 2100 Given 08/01/2024 1:32 PM CDT 0.5 mg Given 08/01/2024 8:59 AM CDT 0.5 mg Given 07/31/2024 7:58 PM CDT 0.5 mg sennosides tablet 8.6 mg (Senokot) 8.6 mg, oral, Daily at bedtime, First dose on Sun07/30/24 at 2100 Given 07/31/2024 7:58 PM CDT 8.6 mg Given 07/30/2024 9:24 PM CDT 8.6 mg sodium chloride 0.9 % injection 10 mL 10 mL, intravenous, As needed, line care, Starting on Sun07/24/24 at 1702, Peripheral Intravenous Catheter and Rapid Infusion Catheter, prior to blood sampling, post blood transfusion or post blood sampling sodium chloride 0.9 % injection 10 mL 10 mL, intravenous, As needed, line care, Starting on Sun07/25/24 at 1327, Peripheral Intravenous Catheter and Rapid Infusion Catheter, prior to blood sampling, post blood transfusion or post blood sampling sodium chloride 0.9 % injection 3 mL 3 mL, intravenous, As needed, line care, Starting on Sun07/24/24 at 1702, Prior to and following infusion and between multiple consecutive infusions: sodium chloride 0.9 % injection sodium chloride 0.9 % injection 3 mL 3 mL, intravenous, Every 12 hours scheduled, First dose on Sun07/24/24 at 2100, Peripheral Intravenous Catheter and Rapid Infusion Catheter, when no infusion to maintain patency Given 08/01/2024 9: 03 AM CDT 3 mL Given 07/30/2024 8:05 AM CDT 3 mL Given 07/28/2024 8:24 PM CDT 3 mL sodium chloride 0.9 % injection 3 mL 3 mL, intravenous, As needed, line care, Starting on Sun07/25/24 at 1327, Prior to and following infusion and between multiple consecutive infusions: sodium chloride 0.9 % injection sodium chloride 0.9 % injection 3 mL 3 mL, intravenous, Every 12 hours scheduled, First dose on Sun07/25/24 at 2100, Peripheral Intravenous Catheter and Rapid Infusion Catheter, when no infusion to maintain patency Given 08/01/2024 9: 03 AM CDT 3 mL Given 07/31/2024 7:58 PM CDT 3 mL Given 07/30/2024 9:24 PM CDT 3 mL sulfamethoxazole-trimethoprim 400-80 mg per tablet 1 tablet (Bactrim) 1 tablet, oral, Daily, First dose on Sun07/27/24 at 1145, Drug Monitoring Program: Pharmacist to adjust medication dosing based on indication and drug clearance factors., Indications: Prophylaxis, medical Given 08/01/2024 9:00 AM CDT 1 tablet Given 07/31/2024 8:40 AM CDT 1 tablet Given 07/30/2024 8:04 AM CDT 1 tablet tamsulosin 24 hr capsule 0.4 mg (Flomax) 0.4 mg, oral, Daily at bedtime, First dose on Sun07/24/24 at 2100, Swallow whole. Do NOT crush, chew or open capsule. Given 07/31/2024 7:58 PM CDT 0.4 mg Given 07/30/2024 9:24 PM CDT 0.4 mg Given 07/29/2024 8:17 PM CDT 0.4 mg torsemide tablet 40 mg (Demadex) 40 mg, oral, Daily, First dose on Sun07/29/24 at 0945, On hold since Sun07/31/2024 at 1042 until manually unheld Given 07/31/2024 8:40 AM CDT 40 mg Given 07/30/2024 8:04 AM CDT 40 mg Given 07/29/2024 10:49 AM CDT 40 mg warfarin management (Jantoven) oral, Daily, First dose on Sun07/25/24 at 1345, Pharmacist to Dose: Yes, Target INR: 2 - 3, Comorbidities that constitute Warfarin Sensitivity: Acute heart failure (e.g., fluid retention, pulmonary edema), Indication: Aortic valve - Mechanical, Therapy type: Continuation Warfarin therapy warfarin tablet 1 mg (Jantoven) 1 mg, oral, Once, On Sun07/27/24 at 1700, For 1 dose, HAZARDOUS - Handle with care. Swallow whole. Do NOT chew or split tablet. May crush using the RxCrush system. Given 07/27/2024 4:49 PM CDT 1 mg warfarin tablet 1 mg (Jantoven) 1 mg, oral, Once, On Sun07/28/24 at 1700, For 1 dose, HAZARDOUS - Handle with care. Swallow whole. Do NOT chew or split tablet. May crush using the RxCrush system. Given 07/28/2024 5:44 PM CDT 1 mg warfarin tablet 1.5 mg (Jantoven) 1.5 mg, oral, Once, On Sun07/29/24 at 1700, For 1 dose, HAZARDOUS - Handle with care. Swallow whole. Do NOT chew or split tablet. May crush using the [employer]Cr[employer] system. Given 07/29/2024 4:52 PM CDT 1.5 mg warfarin tablet 1.5 mg (Jantoven) 1.5 mg, oral, Once, On Sun07/30/24 at 1200, For 1 dose, HAZARDOUS - Handle with care. Swallow whole. Do NOT chew or split tablet. May crush using the [employer] system. Given 07/30/2024 12:07 PM CDT 1.5 mg warfarin tablet 2 mg (Jantoven) 2 mg, oral, Once, On Sun07/31/24 at 1700, For 1 dose, HAZARDOUS - Handle with care. Swallow whole. Do NOT chew or split tablet. May crush using the [employer] system. Given 07/31/2024 4:44 PM CDT 2 mg warfarin tablet 2 mg (Jantoven) 2 mg, oral, Once, On Sun08/01/24 at 1700, For 1 dose, HAZARDOUS - Handle with care. Swallow whole. Do NOT chew or split tablet. May crush using the [employer]Cr[employer] system. warfarin tablet 2.5 mg (Jantoven) 2.5 mg, oral, Once, On Sun07/25/24 at 1700, For 1 dose, HAZARDOUS - Handle with care. Swallow whole. Do NOT chew or split tablet. May crush using the [employer] system. Given 07/25/2024 4:23 PM CDT 2.5 mg warfarin tablet 2.5 mg (Jantoven) 2.5 mg, oral, Once, On Sun07/26/24 at 1700, For 1 dose, HAZARDOUS - Handle with care. Swallow whole. Do NOT chew or split tablet. May crush using the [employer] system. Given 07/26/2024 6:13 PM CDT 2.5 mg documented in this encounter Active and Recently Administered Medications Times are shown in CDT. Scheduled Medication Order 07/30/2024 07/31/2024 08/01/2024 aspirin chewable tablet 81 mg 81 mg, oral, Daily, First dose on Sun07/25/24 at 0900 0804 (Given - Provider: Shameka Tanner R.N.) 0839 (Given - Provider: Kelsie Saez RSammi) 0859 (Given - Provider: Sally Shafer RMihir.) atorvastatin tablet 80 mg (Lipitor) 80 mg, oral, Daily at bedtime, First dose on Carissa 07/24/24 at 2117 2124 (Given - Provider: Alexandra Jackson R.N.) 1955 (Given - Provider: Terra Welch R.N., [facility]) colchicine tablet 0.6 mg (Colcrys) 0.6 mg, oral, Daily, First dose (after last modification) on Sun07/27/24 at 0900 0804 (Given - Provider: Shameka Tanner R.N.) 0840 (Given - Provider: Kelsie Saez R.N.) 0859 (Given - Provider: Sally Shafer R.N.) finasteride tablet 5 mg (Proscar) 5 mg, oral, Daily, First dose on Sun07/25/24 at 0900, See tube feeding guidelines for tube feeding administration instructions. 0803 (Given - Provider: Shameka Tanner R.N.) 0840 (Given - Provider: Kelsie Saez R.N.) 0910 (Given - Provider: Sally Shafer R.N.) insulin aspart U-100 (Carbohydrate Count) injection 0-20 Units (NovoLOG FlexPen) 0-20 Units, subcutaneous, 3 times daily with meals, First dose on Sun07/30/24 at 0830, Simple or Complex Ratio: Simple, Carb Ratio - Simple (1 unit per __ grams of carbohydrates): 10 0952 (Given - Provider: Shameka Tanner R.N.)1309 (Given - Provider: Kelsie Saez R.N.)1809 (Given - Provider: Alexandra Jackson R.N.) 0841 (Given - Provider: Kelsie Saez R.N.)1245 (Given - Provider: Kelsie Saez R.N.)1821 (Given - Provider: Kelsie Saez R.N.) 0902 (Given - Provider: Sally Shafer RJarrettNJarrett)1243 (Given - Provider: Sally Shafer RJarrettNJarrett) insulin aspart U-100 injection 0-13 Units (NovoLOG FlexPen) 0-13 Units, subcutaneous, 3 times daily with meals, First dose (after last modification) on Sun07/30/24 at 1200, Insulin Scale: Moderate Correction Scale, 140 - 179: 2 units, 180 - 219: 4 units, 220 - 259: 6 units, 260 - 299: 8 units, 300 - 339: 10 units, 340 - 379: 12 units, 380 - 399: 13 units, Greater than 399: Call service writing Insulin orders 1309 (Given - Provider: Kelsie Saez R.N.)1701 (Not Given - Provider: Alexandra Jackson R.N. - Reason: Order parameters not met) 0613 (Not Given - Provider: Terra Welch R.N., [facility] - Reason: Order parameters not met)1244 (Given - Provider: Kelsie Saez R.N.)1731 (Not Given - Provider: Kelsie Saez R.N. - Reason: Order parameters not met - Comment: 110) 0643 (Given - Provider: Terra Welch R.N., [facility])1243 (Given - Provider: Sally Shafer R.N.) insulin aspart U-100 injection 0-7 Units (NovoLOG FlexPen) 0-7 Units, subcutaneous, Daily at bedtime, First dose on Sun07/30/24 at 2100, Insulin Scale: Modified Bedtime Correction Scale, 220-259: 3 units, 260-299: 4 units, 300-339: 5 units, 340-379: 6 units, 380-399: 7 units, Greater than 399: Call service writing insulin orders 2129 (Not Given - Provider: Alexandra Jackson R.N. - Reason: Order parameters not met) 2210 (Given - Provider: Terra Welch R.N., [facility]) insulin NPH injection 10 Units (CANCELED) 10 Units, subcutaneous, 2 times daily with meals, First dose on Sun07/26/24 at 1700 0804 (Given - Provider: Shameka Tanner R.N.) insulin NPH injection 10 Units 10 Units, subcutaneous, Every morning, First dose (after last modification) on Sun07/31/24 at 0900 0840 (Given - Provider: Kelsie Saez R.N.) 0903 (Given - Provider: Sally Shafer R.N.) insulin NPH injection 6 Units (CANCELED) 6 Units, subcutaneous, Every evening, First dose on Sun07/30/24 at 1800 1810 (Given - Provider: Alexandra Jackson R.N.) metoprolol succinate 24 hr tablet 50 mg (Toprol XL) 50 mg, oral, Daily, First dose on Sun07/25/24 at 0900, Do NOT crush or chew. Tablet may be split on score if needed. 0804 (Given - Provider: Shameka Tanner R.N.) 0840 (Given - Provider: Kelsie Saez R.N.) 0859 (Given - Provider: Sally Shafer R.N.) pantoprazole DR tablet 40 mg (Protonix) 40 mg, oral, Daily before morning meal, First dose on 07/27/24 at 0700, Swallow whole. Do NOT crush, chew, or split tablet. 0617 (Given - Provider: Damon Pool, RJarrettN.) 0609 (Given - [facility]: [facility] 0643 (Given - Provider: Terra Welch R.N., [facility]) polyethylene glycol powder packet 17 g (Miralax) 17 g, oral, 2 times daily, First dose on Sun07/30/24 at 0900, Dissolve in 240 mLs (8 ounces) of water prior to giving. Avoid mixing with starch-based thickened liquids. 0803 (Given - Provider: Shameka Tanner R.N.)2124 (Not Given - Provider: Alexandra Jackson R.N. - Reason: Patient/family refused) 0842 (Not Given - Provider: Kelsie Saez R.N. - Reason: Patient/family refused)1955 (Given - [facility] 0859 (Not Given - Provider: Sally Shafer R.N. - Reason: Patient/family refused) predniSONE tablet 20 mg (Deltasone) 20 mg, oral, Daily, First dose on 07/26/24 at 0900 0803 (Given - Provider: Shameka Tanner R.N.) 0840 (Given - Provider: Kelsie Saez R.N.) 0859 (Given - Provider: Felipe JaquezNJarrett) rOPINIRole tablet 0.5 mg (Requip) 0.5 mg, oral, 3 times daily, First dose on Carissa 07/24/24 at 2100 0804 (Given - Provider: Shaemka Tanner R.N.)1317 (Given - Provider: Kelsie Saez R.N.)2124 (Given - Provider: Alexandra Jackson R.N.) 0840 (Given - Provider: Kelsie Saez R.N.)1248 (Given - Provider: Kelsie Saez R.N.)1955 (Given - Provider: Terra Welch R.N., [facility]) 0859 (Given - Provider: Sally Shafer R.N.)1331 (Given - Provider: Sally Shafer R.N.) sennosides tablet 8.6 mg (Senokot) 8.6 mg, oral, Daily at bedtime, First dose on Sun07/30/24 at 2100 2123 (Given - Provider: Alexandra Jackson R.N.) 1955 (Given - [facility]) sodium chloride 0.9 % injection 3 mL 3 mL, intravenous, Every 12 hours scheduled, First dose on Sun07/24/24 at 2100, Peripheral Intravenous Catheter and Rapid Infusion Catheter, when no infusion to maintain patency 0805 (Given - Provider: Shameka Tanner R.N.)2126 (Not Given - Provider: Alexandra Jackson R.N. - Reason: Other - Comment: duplicate) 0900 (Canceled Entry - Provider: Kelsie Saez R.N.)1958 (Not Given - Provider: Terra Welch R.N., [facility] - Reason: Contraindicated) 0903 (Given - Provider: Sally Shafer R.N.) sodium chloride 0.9 % injection 3 mL 3 mL, intravenous, Every 12 hours scheduled, First dose on Sun07/25/24 at 2100, Peripheral Intravenous Catheter and Rapid Infusion Catheter, when no infusion to maintain patency 0805 (Given - Provider: Shameka Tanner R.N.)2123 (Given - Provider: Alexandra Jackson R.N.) 0900 (Canceled Entry - Provider: Kelsie Saez R.N.)1955 (Given - [facility]: [facility]) 0903 (Given - Provider: Sally Shafer R.N.) spironolactone tablet 25 mg (Aldactone) 25 mg, oral, Daily, First dose on Sun07/25/24 at 0900, On hold since Sun07/25/2024 at 1302 until manually unheld 0900 (Not Given - Provider: Kelsie Saez R.N. - Reason: See Provider Order - Comment: marked as held per provider order) 0900 (Canceled Entry - Provider: Kelsie Saez R.N. - Comment: marked as held per provider order) 0900 (Dose Auto Held)1614 (Unheld by provider - Provider: Discharge Provider, Automatic) sulfamethoxazole-trimeth oprim 400-80 mg per tablet 1 tablet (Bactrim) (CANCELED) 1 tablet, oral, Daily, First dose on Sun07/27/24 at 1145, Drug Monitoring Program: Pharmacist to adjust medication dosing based on indication and drug clearance factors., Indications: Prophylaxis, medical 0804 (Given - Provider: Shameka Tanner R.N.) 0840 (Given - Provider: Kelsie Saez R.N.) 0900 (Given - Provider: Sally Shafer R.N.) sulfamethoxazole-trimeth oprim 400-80 mg per tablet 1 tablet (Bactrim) 1 tablet, oral, Daily, First dose on 08/02/24 at 0900, For 28 days, Drug Monitoring Program: Pharmacist to adjust medication dosing based on indication and drug clearance factors., Indications: Prophylaxis, medical tamsulosin 24 hr capsule 0.4 mg (Flomax) 0.4 mg, oral, Daily at bedtime, First dose on Carissa 07/24/24 at 2100, Swallow whole. Do NOT crush, chew or open capsule. 2123 (Given - Provider: Alexandra Jackson R.N.) 1955 (Given - Provider: Terra Welch R.N., [facility]) torsemide tablet 40 mg (Demadex) 40 mg, oral, Daily, First dose on Sun07/29/24 at 0945, On hold since Sun07/31/2024 at 1042 until manually unheld 0804 (Given - Provider: Shameka Tanner R.N.) 0840 (Given - Provider: Kelsie Saez R.N.)1042 (Held by provider - Provider: Chelsea Izaguirre M.D. - Comment: MANJEET) 0900 (Dose Auto Held - Provider: Chelsea Izaguirre M.D.)1614 (Unheld by provider - Provider: Discharge Provider, Automatic) warfarin management (Jantoven) oral, Daily, First dose on Sun07/25/24 at 1345, Pharmacist to Dose: Yes, Target INR: 2 - 3, Comorbidities that constitute Warfarin Sensitivity: Acute heart failure (e.g., fluid retention, pulmonary edema), Indication: Aortic valve - Mechanical, Therapy type: Continuation Warfarin therapy 1700 (Due) 1700 (Due) warfarin tablet 1.5 mg (Jantoven) (COMPLETED) 1.5 mg, oral, Once, On Sun07/30/24 at 1200, For 1 dose, HAZARDOUS - Handle with care. Swallow whole. Do NOT chew or split tablet. May crush using the RxCrush system. 1207 (Given - Provider: Alexandra Jackson R.N.) warfarin tablet 2 mg (Jantoven) (COMPLETED) 2 mg, oral, Once, On Carissa 07/31/24 at 1700, For 1 dose, HAZARDOUS - Handle with care. Swallow whole. Do NOT chew or split tablet. May crush using the RxCrush system. 1644 (Given - Provider: Kelsie Saez R.N.) warfarin tablet 2 mg (Jantoven) 2 mg, oral, Once, On Sun08/01/24 at 1700, For 1 dose, HAZARDOUS - Handle with care. Swallow whole. Do NOT chew or split tablet. May crush using the RxCrush system. PRN Medication Order 07/30/2024 07/31/2024 08/01/2024 glycerin suppository 2 g 2 g, rectal, Daily PRN, constipation, Starting on Sun07/30/24 at 0736 sodium chloride 0.9 % injection 10 mL 10 mL, intravenous, As needed, line care, Starting on Carissa 07/24/24 at 1702, Peripheral Intravenous Catheter and Rapid Infusion Catheter, prior to blood sampling, post blood transfusion or post blood sampling sodium chloride 0.9 % injection 10 mL 10 mL, intravenous, As needed, line care, Starting on Sun07/25/24 at 1327, Peripheral Intravenous Catheter and Rapid Infusion Catheter, prior to blood sampling, post blood transfusion or post blood sampling sodium chloride 0.9 % injection 3 mL 3 mL, intravenous, As needed, line care, Starting on Sun07/24/24 at 1702, Prior to and following infusion and between multiple consecutive infusions: sodium chloride 0.9 % injection sodium chloride 0.9 % injection 3 mL 3 mL, intravenous, As needed, line care, Starting on Sun07/25/24 at 1327, Prior to and following infusion and between multiple consecutive infusions: sodium chloride 0.9 % injection documented in this encounter Additional Health Concerns Assessment Noted Time PHQ-9 Depression Total Score: 1 09/10/20 23 2:06 PM CDT documented as of this encounter Care Teams Corporate Quality Assurance Manager Relationship Specialty Start Date End Date Elsewhere, Pcp PCP - General Internal Medicine 07/28/24 documented as of this encounter
--- OUTSIDE RECORDS SUMMARY | 2024-08-04 13:52 | XMS_ITS | Encounter Summary ---
Author Organization 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 [address] [place] [address] [facility] Referral ID Status Reason Start Date Expiration Date V isits Requested Visits Authorized [id number] Authorized 07/30/2024 01/29/2026 1 1 Encounter Details Date Type Department Care Team (Late st Contact Info) Description 07/30/2024 Clinical Communication [facility] [address] [place] [phone] Barbara Valencia M.B., B.Ch. [address] [place] [phone] Social History Tobacco Use Types Packs/Day Years Used Date Smoking Tobacco: Never Smokeless Tobacco: Never Comments:Smoked recreational ly over 40 years ago - a few cigarettes once in a while. Alcohol Use Standard Drinks/Week Comments Never 0 (1 standard drink = 0.6 oz pur e alcohol) [facility] Utilities Answer Date Recorded In the past 12 months has e [employer], gas, oil, or water [employer] threatened to shut off services in your [...] a [facility] place to live 07/25/2024 Sex and Gender Information Value Date Recorded Sex Assigned at Male 08/29/2023 11:06 AM CDT Gender Identity Male 08/29/2023 11:06 AM CDT Sexual Orientation Straight 08/29/2023 11 :06 AM CDT documented as of this encounter Plan of Treatment Upcoming Encounters Date Type Department Care Team (Latest Contact Info) Description 09/29/2024 1:00 PM FOOD SUPERVISOR Clinical Communication Virtual Review in [place], [place] [address] [place] [address] 10/02/2024 10:00 AM FOOD SUPERVISOR Ancillary Procedure Department of Cardiovascular Medicine in [place], [place] [address] [place] [phone] Deven Clement M.D., M.S. [address] [place] [phone] 10/02/2024 10:45 AM FOOD SUPERVISOR Appointment Department of Radiology, [facility] in [place], [place] [address] [place] [address] Deven Clement M.D., M.S. [address] [place] [phone] 10/02/2024 11:20 AM FOOD SUPERVISOR [facility] [place] [place] [address] [place] [phone] Deven Clement M.D., M.S. [address] [place] [phone] 10/02/2024 12:45 PM FOOD SUPERVISOR Appointment Department of Radiology, [facility] in [place], [place] [address] [place] [phone] Deven Clement M.D., M.S. [address] [place] [phone] 10/02/2024 2:00 PM FOOD SUPERVISOR Comprehensive Visit Department of Cardiovascular Medicine in [place], [place] [address] [place] [phone] Keagan Tellez M.D. 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 1 To 4 Chronic Kidney Disease Or Unspecified Chronic Kidney Disease Atrial Fibrillation Paroxysmal (HCC) Coronary Artery Disease Without Angina Pectoris Stenosis Aortic Valve Acquired Pericardial Disease (HCC) Expected: 08/29/2024, Expires: 10/29/2025 ALT (Alanine Aminotransferase) Lab Routine 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 1 To 4 Chronic Kidney Disease Or Unspecified Chronic Kidney Disease Atrial Fibrillation Paroxysmal (HCC) Coronary Artery Disease Without Angina Pectoris Stenosis Aortic Valve Acquired Pericardial Disease (HCC) Expected: 08/29/2024, Expires: 10/29/2025 Alkaline Phosphatase Lab Routine 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 1 To 4 Chronic Kidney Disease Or Unspecified Chronic Kidney Disease Atrial Fibrillation Paroxysmal (HCC) Coronary Artery Disease Without Angina Pectoris Stenosis Aortic Valve Acquired Pericardial Disease (HCC) Expected: 08/29/2024, Expires: 10/29/2025 Antibody to Extractable Nuclear Antigen Evaluation Lab Routine 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 1 To 4 Chronic Kidney Disease Or Unspecified Chronic Kidney Disease Atrial Fibrillation Paroxysmal (HCC) Coronary Artery Disease Without Angina Pectoris Stenosis Aortic Valve Acquired Pericardial Disease (HCC) Expected: 08/29/2024, Expires: 10/29/2025 AST (Aspartate Aminotransferase) Lab Routine 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 1 To 4 Chronic Kidney Disease Or Unspecified Chronic Kidney Disease Atrial Fibrillation Paroxysmal (HCC) Coronary Artery Disease Without Angina Pectoris Stenosis Aortic Valve Acquired Pericardial Disease (HCC) Expected: 08/29/2024, Expires: 10/29/2025 Bilirubin, Direct Lab Routine 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 1 To 4 Chronic Kidney Disease Or Unspecified Chronic Kidney Disease Atrial Fibrillation Paroxysmal (HCC) Coronary Artery Disease Without Angina Pectoris Stenosis Aortic Valve Acquired Pericardial Disease (HCC) Expected: 08/29/2024, Expires: 10/29/2025 Bilirubin, Total Lab Routine 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 1 To 4 Chronic Kidney Disease Or Unspecified Chronic Kidney Disease Atrial Fibrillation Paroxysmal (HCC) Coronary Artery Disease Without Angina Pectoris Stenosis Aortic Valve Acquired Pericardial Disease (HCC) Expected: 08/29/2024, Expires: 10/29/2025 CBC with Differential, Blood Lab Routine 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 1 To 4 Chronic Kidney Disease Or Unspecified Chronic Kidney Disease Atrial Fibrillation Paroxysmal (HCC) Coronary Artery Disease Without Angina Pectoris Stenosis Aortic Valve Acquired Pericardial Disease (HCC) Expected: 08/29/2024, Expires: 10/29/2025 Cyclic Citrullinated Peptide Antibodies, IgG Lab Routine 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 1 To 4 Chronic Kidney Disease Or Unspecified Chronic Kidney Disease Atrial Fibrillation Paroxysmal (HCC) Coronary Artery Disease Without Angina Pectoris Stenosis Aortic Valve Acquired Pericardial Disease (HCC) Expected: 08/29/2024, Expires: 10/29/2025 Complement C3 Lab Routine 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 1 To 4 Chronic Kidney Disease Or Unspecified Chronic Kidney Disease Atrial Fibrillation Paroxysmal (HCC) Coronary Artery Disease Without Angina Pectoris Stenosis Aortic Valve Acquired Pericardial Disease (HCC) Expected: 08/29/2024, Expires: 10/29/2025 Complement C4 Lab Routine 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 1 To 4 Chronic Kidney Disease Or Unspecified Chronic Kidney Disease Atrial Fibrillation Paroxysmal (HCC) Coronary Artery Disease Without Angina Pectoris Stenosis Aortic Valve Acquired Pericardial Disease (HCC) Expected: 08/29/2024, Expires: 10/29/2025 Complement, Total Lab Routine 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 1 To 4 Chronic Kidney Disease Or Unspecified Chronic Kidney Disease Atrial Fibrillation Paroxysmal (HCC) Coronary Artery Disease Without Angina Pectoris Stenosis Aortic Valve Acquired Pericardial Disease (HCC) Expected: 08/29/2024, Expires: 10/29/2025 Creatinine with Estimated GFR Lab Routine 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 1 To 4 Chronic Kidney Disease Or Unspecified Chronic Kidney Disease Atrial Fibrillation Paroxysmal (HCC) Coronary Artery Disease Without Angina Pectoris Stenosis Aortic Valve Acquired Pericardial Disease (HCC) Expected: 08/29/2024, Expires: 10/29/2025 CRP (C-Reactive Protein) Lab Routine 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 1 To 4 Chronic Kidney Disease Or Unspecified Chronic Kidney Disease Atrial Fibrillation Paroxysmal (HCC) Coronary Artery Disease Without Angina Pectoris Stenosis Aortic Valve Acquired Pericardial Disease (HCC) Expected: 08/29/2024, Expires: 10/29/2025 Glucose, Fasting Lab Routine 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 1 To 4 Chronic Kidney Disease Or Unspecified Chronic Kidney Disease Atrial Fibrillation Paroxysmal (HCC) Coronary Artery Disease Without Angina Pectoris Stenosis Aortic Valve Acquired Pericardial Disease (HCC) Expected: 08/29/2024, Expires: 10/29/2025 Lipid Panel Lab Routine 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 1 To 4 Chronic Kidney Disease Or Unspecified Chronic Kidney Disease Atrial Fibrillation Paroxysmal (HCC) Coronary Artery Disease Without Angina Pectoris Stenosis Aortic Valve Acquired Pericardial Disease (HCC) Expected: 08/29/2024, Expires: 10/29/2025 NT-Pro B-Type Natriuretic Peptide (BNP) Lab Routine 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 1 To 4 Chronic Kidney Disease Or Unspecified Chronic Kidney Disease Atrial Fibrillation Paroxysmal (HCC) Coronary Artery Disease Without Angina Pectoris Stenosis Aortic Valve Acquired Pericardial Disease (HCC) Expected: 08/29/2024, Expires: 10/29/2025 Potassium Lab Routine 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 1 To 4 Chronic Kidney Disease Or Unspecified Chronic Kidney Disease Atrial Fibrillation Paroxysmal (HCC) Coronary Artery Disease Without Angina Pectoris Stenosis Aortic Valve Acquired Pericardial Disease (HCC) Expected: 08/29/2024, Expires: 10/29/2025 Protein, Total Lab Routine 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 1 To 4 Chronic Kidney Disease Or Unspecified Chronic Kidney Disease Atrial Fibrillation Paroxysmal (HCC) Coronary Artery Disease Without Angina Pectoris Stenosis Aortic Valve Acquired Pericardial Disease (HCC) Expected: 08/29/2024, Expires: 10/29/2025 Electrophoresis, Protein Lab Routine 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 1 To 4 Chronic Kidney Disease Or Unspecified Chronic Kidney Disease Atrial Fibrillation Paroxysmal (HCC) Coronary Artery Disease Without Angina Pectoris Stenosis Aortic Valve Acquired Pericardial Disease (HCC) Expected: 08/29/2024, Expires: 10/29/2025 QuantiFERON-Tb Gold Plus, Blood Microbiology Routine 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 1 To 4 Chronic Kidney Disease Or Unspecified Chronic Kidney Disease Atrial Fibrillation Paroxysmal (HCC) Coronary Artery Disease Without Angina Pectoris Stenosis Aortic Valve Acquired Pericardial Disease (HCC) Expected: 08/29/2024, Expires: 10/29/2025 Quantitative M-protein Study Lab Routine 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 1 To 4 Chronic Kidney Disease Or Unspecified Chronic Kidney Disease Atrial Fibrillation Paroxysmal (HCC) Coronary Artery Disease Without Angina Pectoris Stenosis Aortic Valve Acquired Pericardial Disease (HCC) Expected: 08/29/2024, Expires: 10/29/2025 Rheumatoid Factor Lab Routine 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 1 To 4 Chronic Kidney Disease Or Unspecified Chronic Kidney Disease Atrial Fibrillation Paroxysmal (HCC) Coronary Artery Disease Without Angina Pectoris Stenosis Aortic Valve Acquired Pericardial Disease (HCC) Expected: 08/29/2024, Expires: 10/29/2025 Sedimentation Rate Lab Routine 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 1 To 4 Chronic Kidney Disease Or Unspecified Chronic Kidney Disease Atrial Fibrillation Paroxysmal (HCC) Coronary Artery Disease Without Angina Pectoris Stenosis Aortic Valve Acquired Pericardial Disease (HCC) Expected: 08/29/2024, Expires: 10/29/2025 Sodium Lab Routine 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 1 To 4 Chronic Kidney Disease Or Unspecified Chronic Kidney Disease Atrial Fibrillation Paroxysmal (HCC) Coronary Artery Disease Without Angina Pectoris Stenosis Aortic Valve Acquired Pericardial Disease (HCC) Expected: 08/29/2024, Expires: 10/29/2025 Thyroid Function [place] Lab Routine 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 1 To 4 Chronic Kidney Disease Or Unspecified Chronic Kidney Disease Atrial Fibrillation Paroxysmal (HCC) Coronary Artery Disease Without Angina Pectoris Stenosis Aortic Valve Acquired Pericardial Disease (HCC) Expected: 08/29/2024, Expires: 10/29/2025 DX Chest AP or PA and Lateral 2 Views Imaging RAD - Routine (most inpatients and all outpatients) 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 1 To 4 Chronic Kidney Disease Or Unspecified Chronic Kidney Disease Atrial Fibrillation Paroxysmal (HCC) Coronary Artery Disease Without Angina Pectoris Stenosis Aortic Valve Acquired Pericardial Disease (HCC) Expected: 08/29/2024, Expires: 10/29/2025 ECG 12 Lead ECG Routine 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 1 To 4 Chronic Kidney Disease Or Unspecified Chronic Kidney Disease Atrial Fibrillation Paroxysmal (HCC) Coronary Artery Disease Without Angina Pectoris Stenosis Aortic Valve Acquired Pericardial Disease (HCC) Expected: 08/29/2024, Expires: 10/29/2025 Echo Transthoracic (TTE) Echocardiography Routine 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 1 To 4 Chronic Kidney Disease Or Unspecified Chronic Kidney Disease Atrial Fibrillation Paroxysmal (HCC) Coronary Artery Disease Without Angina Pectoris Stenosis Aortic Valve Acquired Pericardial Disease (HCC) Expected: 08/29/2024, Expires: 10/29/2025 MR Cardiac without and with IV Contrast Imaging RAD - Routine (most inpatients and all outpatients) 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 1 To 4 Chronic Kidney Disease Or Unspecified Chronic Kidney Disease Atrial Fibrillation Paroxysmal (HCC) Coronary Artery Disease Without Angina Pectoris Stenosis Aortic Valve Acquired Pericardial Disease (HCC) Expected: 10/02/2024, Expires: 10/29/2025 Scheduled Referrals Name Type Priority Associated Diagnoses Orde r Schedule Cardiovascular Disease - Pericardial disease consult (clinic) Outpatient Referral Routine 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 1 To 4 Chronic Kidney Disease Or Unspecified Chronic Kidney Disease Atrial Fibrillation Paroxysmal (HCC) Coronary Artery Disease Without Angina Pectoris Stenosis Aortic Valve Acquired Pericardial Disease (HCC) Expected: 08/29/2024, Expires: 10/29/2025 documented as of this encounter Visit Diagnoses Diagnosis Pericardial Disease (HCC)- Primary 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
--- OUTSIDE RECORDS SUMMARY | 2024-08-04 13:52 | XMS_ITS | Encounter Summary ---
Author Organization [facility] Address [address] [place] [address] Care Team Providers Care Ortho Assistant Name Role Phone Elsewhere, Pcp Primary Care Provider Unavailabl e Encounter Details Date Type Department Care Team (Late st Contact Info) Description 07/30/2024 9:50 AM CDT Ancillary Procedure Department of Nursing Social History Tobacco Use Types Packs/Day Years Used Date Smoking Tobacco: Never Smokeless Tobacco: Never Comments:Smoked recreational ly over 40 years ago - a few cigarettes once in a while. Alcohol Use Standard Drinks/Week Comments Never 0 (1 standard drink = 0.6 oz pur e alcohol) [facility] Utilities Answer Date Recorded In the past 12 months has e electric, gas, oil, or water company [...] have a [facility] live 07/25/2024 Sex and Gender Information Value Date Recorded Sex Assigned at Male 08/29/2023 11:06 AM CDT Gender Identity Male 08/29/2023 11:06 AM CDT Sexual Orientation Straight 08/29/2023 11 :06 AM CDT documented as of this encounter Plan of Treatment Upcoming Encounters Date Type Department Care Team (Latest Contact Info) Description 09/29/2024 1:00 PM HEDDLER Clinical Communication Virtual Review in [address] [phone] 10/02/2024 10:00 AM HEDDLER Ancillary Procedure Department of Cardiovascular Medicine in [place], [place] [address] [place] [phone] Deven Clement M.D., M.S. [address] [place] [phone] 10/02/2024 10:45 AM HEDDLER Appointment Department of Radiology, [facility] in [place], [place] [address] [place] [address] Deven Clement M.D., M.S. [address] [place] [phone] 10/02/2024 11:20 AM HEDDLER Appointment Department of Laboratory Medicine and Pathology, [facility] in [place], [place] [address] [place] [phone] Deven Clement M.D., M.S. [address] [place] [phone] 10/02/2024 12:45 PM HEDDLER Appointment Department of Radiology, [facility] in [place], [place] [address] [place] [address] Deven Clement M.D., M.S. [address] [place] [phone] 10/02/2024 2:00 PM HEDDLER Comprehensive Visit Department of Cardiovascular Medicine in [address] [phone] Keagan Tellez M.D. [address] [place] [phone] documented as of this encounter Procedures Procedure Name Priority Date/Time Associated Diagnosis Comments NURSING IMAGE EXAM Routine 07/30/2024 9: 46 AM CDT documented in this encounter Results * Leg, left-Nursing Image Exam (07/30/2024 9:46 AM CDT) 07/30/2024 9:44 AM CDT Narrative [facility]IM[facility] - [...] documented as of this encounter Care Teams Ortho Assistant Relationship Specialty Start Date End Date Elsewhere, Pcp PCP - General Internal Medicine 07/28/24 documented as of this encounter
--- OUTSIDE RECORDS SUMMARY | 2024-08-04 13:52 | XMS_ITS | Encounter Summary ---
Author Organization [facility] Address [address] [place] [address] Care Team Providers Care Marketing Operations Intern Name Role Phone Elsewhere, Pcp Primary Care Provider Unavailabl e Encounter Details Date Type Department Care Team (Late st Contact Info) Description 07/28/2024 10:40 AM CDT Ancillary Procedure Department of Nursing Social History Tobacco Use Types Packs/Day Years Used Date Smoking Tobacco: Never Smokeless Tobacco: Never Comments:Smoked recreational ly over 40 years ago - a few cigarettes once in a while. Alcohol Use Standard Drinks/Week Comments Never 0 (1 standard drink = 0.6 oz pur e alcohol) [facility] Utilities Answer Date Recorded [...] [facility] 07/25/2024 Sex and Gender Information Value Date Recorded Sex Assigned at Male 08/29/2023 11:06 AM CDT Gender Identity Male 08/29/2023 11:06 AM CDT Sexual Orientation Straight 08/29/2023 11 :06 AM CDT documented as of this encounter Plan of Treatment Upcoming Encounters Date Type Department Care Team (Latest Contact Info) Description 09/29/2024 1:00 PM TITLE ONE KINDERGARTEN TEACHER Clinical Communication Virtual Review in [address] [phone] 10/02/2024 10:00 AM TITLE ONE KINDERGARTEN TEACHER Ancillary Procedure Department of Cardiovascular Medicine in [place], [place] [address] [place] [phone] Deven Clement M.D., M.S. [address] [place] [phone] 10/02/2024 10:45 AM TITLE ONE KINDERGARTEN TEACHER Appointment Department of Radiology, [facility] in [place], [place] [address] [place] [address] Deven Clement M.D., M.S. [address] [place] [phone] 10/02/2024 11:20 AM TITLE ONE KINDERGARTEN TEACHER Appointment Department of Laboratory Medicine and Pathology, [facility] in [place], [place] [address] [place] [phone] Deven Clement M.D., M.S. [address] [place] [phone] 10/02/2024 12:45 PM TITLE ONE KINDERGARTEN TEACHER Appointment Department of Radiology, [facility] in [place], [place] [address] [place] [address] Deven Clement M.D., M.S. [address] [place] [phone] 10/02/2024 2:00 PM TITLE ONE KINDERGARTEN TEACHER Comprehensive Visit Department of Cardiovascular Medicine in [address] [phone] Keagan Tellez M.D. [address] [place] [phone] documented as of this encounter Procedures Procedure Name Priority Date/Time Associated Diagnosis Comments NURSING IMAGE EXAM Routine 07/28/2024 10 :39 AM CDT documented in this encounter Results * Foot, Right-Nursing Image Exam (07/28/2024 10:39 AM CDT) 07/28/2024 10:3 7 AM CDT Narrative [facility] - 07/28/2024 10:39 AM CDT This order has been created [...] documented as of this encounter Care Teams Marketing Operations Intern Relationship Specialty Start Date End Date Elsewhere, Pcp PCP - General Internal Medicine 07/28/24 documented as of this encounter
--- OUTSIDE RECORDS SUMMARY | 2024-08-04 13:52 | XMS_ITS | Encounter Summary ---
Author Organization [facility] Address [address] [place] [address] Care Team Providers Care Oxidation Engineer Name Role Phone Elsewhere, Pcp Primary Care Provider Unavailabl e Encounter Details Date Type Department Care Team (Late st Contact Info) Description 07/30/2024 9:45 AM CDT Ancillary Procedure Department of Nursing Social History Tobacco Use Types Packs/Day Years Used Date Smoking Tobacco: Never Smokeless Tobacco: Never Comments:Smoked recreational ly over 40 years ago - a few cigarettes once in a while. Alcohol Use Standard Drinks/Week Comments Never 0 (1 standard drink = 0.6 oz pur e alcohol) [facility] Utilities Answer Date Recorded In [...] have a [facility] place [facility] live 07/25/2024 Sex and Gender Information Value Date Recorded Sex Assigned at Male 08/29/2023 11:06 AM CDT Gender Identity Male 08/29/2023 11:06 AM CDT Sexual Orientation Straight 08/29/2023 11 :06 AM CDT documented as of this encounter Plan of Treatment Upcoming Encounters Date Type Department Care Team (Latest Contact Info) Description 09/29/2024 1:00 PM CORE MOUNTER Clinical Communication Virtual Review in [address] [phone] 10/02/2024 10:00 AM CORE MOUNTER Ancillary Procedure Department of Cardiovascular Medicine in [place], [place] [address] [place] [address] Deven Clement M.D., M.S. [address] [place] [phone] 10/02/2024 10:45 AM CORE MOUNTER Appointment Department of Radiology, [facility] in [place], [place] [address] [place] [address] Deven Clement M.D., M.S. [address] [place] [phone] 10/02/2024 11:20 AM CORE MOUNTER Appointment Department of Laboratory Medicine and Pathology, [facility] in [place], [place] [address] [place] [phone] Deven Clement M.D., M.S. [address] [place] [phone] 10/02/2024 12:45 PM CORE MOUNTER Appointment Department of Radiology, [facility] in [place], [place] [address] [place] [address] Deven Clement M.D., M.S. [address] [place] [phone] 10/02/2024 2:00 PM CORE MOUNTER Comprehensive Visit Department of Cardiovascular Medicine in [address] [phone] Keagan Tellez M.D. [address] [place] [phone] documented as of this encounter Procedures Procedure Name Priority Date/Time Associated Diagnosis Comments NURSING IMAGE EXAM Routine 07/30/2024 9: 45 AM CDT documented in this encounter Results * Leg, left-Nursing Image Exam (07/30/2024 9:45 AM CDT) 07/30/2024 9:44 AM CDT Narrative [...] documented as of this encounter Care Teams Oxidation Engineer Relationship Specialty Start Date End Date Elsewhere, Pcp PCP - General Internal Medicine 07/28/24 documented as of this encounter
--- OUTSIDE RECORDS SUMMARY | 2024-08-04 13:52 | XMS_ITS | Encounter Summary ---
Author Organization [facility] Address [address] [place] [address] Care Team Providers Care Canoe Inspector Name Role Phone Unavailable Primary Care Provider Unavailabl e Encounter Details Date Type Department Care Team (Late st Contact Info) Description 07/25/2024 1:00 PM CDT Ancillary Procedure Department of Nursing Social History Tobacco Use Types Packs/Day Years Used Date Smoking Tobacco: Never Smokeless Tobacco: Never Comments:Smoked recreational ly over 40 years ago - a few cigarettes once in a while. Alcohol Use Standard Drinks/Week Comments Never 0 (1 standard drink = 0.6 oz pur e alcohol) [facility] Utilities Answer Date Recorded In the past [...] living situation today? I have a [facility] place to live 07/25/2024 Sex and Gender Information Value Date Recorded Sex Assigned at Male 08/29/2023 11:06 AM CDT Gender Identity Male 08/29/2023 11:06 AM CDT Sexual Orientation Straight 08/29/2023 11 :06 AM CDT documented as of this encounter Plan of Treatment Upcoming Encounters Date Type Department Care Team (Latest Contact Info) Description 09/29/2024 1:00 PM CHAINSTITCH ZIPPER SETTER Clinical Communication Virtual Review in [place], [place] 200 [place] [address] 10/02/2024 10:00 AM CHAINSTITCH ZIPPER SETTER Ancillary Procedure Department of Cardiovascular Medicine in [place], [place] [address] [place] [address] Deven Clement M.D., M.S. [address] [place] [phone] 10/02/2024 10:45 AM CHAINSTITCH ZIPPER SETTER Appointment Department of Radiology, [facility] in [place], [place] [address] [place] [address] Deven Clement M.D., M.S. [address] [place] [phone] 10/02/2024 11:20 AM CHAINSTITCH ZIPPER SETTER [facility] [place] [place] [address] [place] [address] Deven Clement M.D., M.S. [address] [place] [phone] 10/02/2024 12:45 PM CHAINSTITCH ZIPPER SETTER Appointment Department of Radiology, [facility] in [place], [place] [address] [place] [address] Deven Clement M.D., M.S. [address] [place] [phone] 10/02/2024 2:00 PM CHAINSTITCH ZIPPER SETTER Comprehensive Visit Department of Cardiovascular Medicine in [address] [phone] Keagan Tellez M.D. [address] [place] [phone] documented as of this encounter Procedures Procedure Name Priority Date/Time Associated Diagnosis Comments NURSING IMAGE EXAM Routine 07/25/2024 1: 00 PM CDT documented in this encounter Results * Legs-Nursing Image Exam (07/25/2024 1:00 PM CDT) 07/25/2024 12:5 8 PM CDT Narrative [facility] - 07/25/2024 1:00 PM CDT This order has been created [...]
--- OUTSIDE RECORDS SUMMARY | 2024-08-04 13:52 | XMS_ITS | Encounter Summary ---
Author Organization [facility] Address [address] [place] [address] Care Team Providers Care Director Of Religious Life Name Role Phone Kylah Crum M.D. Primary Care Provider [phone] Reason for Visit * Appointment Request (Routine) - Closed Specialty Diagnoses / Procedures Referred By Sebas t Referred To Contact Nephrology and Hypertension Referral ID Status Reason Start Date Expiration Date Visits Re quested Visits Authorized [id number] Closed 04/25/2024 04/25/2025 1 1 Encounter Details Date Type Department Care Team (Latest Contact Info) Description 06/11/2024 1:30 PM CDT External Outreach Division of Nephrology and Hypertension in [place], [place] [address] [place] [address] Atif Nance Jr., D.O. [address] [place] [address] 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 1 To 4 Chronic Kidney Disease Or Unspecified Chronic Kidney Disease (Primary Dx); Atrial Fibrillation Paroxysmal (HCC); Anemia In Chronic Kidney Disease; Hemiplegia Dominant Side Right (HCC); Hyperparathyroidism Renal Secondary (HCC); Prosthesis Aortic Valve Social History Tobacco Use Types Packs/Day Years [...] your living situation today? I have a [facility] place to live 08/29/2023 Sex and Gender Information Value Date Recorded Sex Assigned at Male 08/29/2023 11:06 AM CDT Gender Identity Male 08/29/2023 11:06 AM CDT Sexual Orientation Straight 08/29/2023 11 :06 AM CDT documented as of this encounter Last Filed Vital Signs Vital Sign Reading Time Taken Comments Blood Pressure 124/76 06/11/2024 1:26 PM CDT Pulse 81 06/11/2024 1:26 PM CDT Temperature - - Respiratory Rate - - Oxygen Saturation - - Inhaled Oxygen Concentration - - Weight 93.9 kg (207 lb 0.2 oz) 06/11/2024 1:26 P M CDT Height 173.9 cm (5' 8.47) 06/11/2024 1:26 PM CD T Body Mass Index 31.05 06/11/2024 1:26 PM CDT documented in this encounter Progress Notes * Atif Nance Jr. DCeci. - 06/11/2024 1:30 PM CDT Referring Provider: Kylah Crum M.D. SUBJECTIVE REASON FOR VISIT [place] out [facility] Follow-up regards CKD HISTORY OF PRESENT ILLNESS Mr. Harris is a 74 y.o. male who presents with CKD on the background of diabetes mellitus type 2,hypertension, and recent cardiac surgery with cardiorenal syndrome. Appreciate he has been seen by our team in the past and he had acute kidney injury associated with his cardiac surgery for aortic valve stenosis in September of 2023. He is currently on oral anticoagulation, and more recently has been developing fluid overload. He has been on a prednisone taper and has gained a tremendous amount of volume, and he has also been hyper glycemic. Appreciate that his glipizide was just doubled, and that previously he struggled with diarrhea on 1000 mg of metformin twice a day. He has not been on an SG LT 2 inhibitor, did try a GLP 1 agonist which caused a rash. He has had no hypoglycemic events recently, his restless legs syndrome seems reasonably well controlled on the ropinirole. Has gained objectively roughly tend to 20 lb of fluid however. He does not have PND or orthopnea but is struggling with respiratory congestion. He has had recent urgent care visits where they have ruled out substantial viruses including COVID RSV and influenza. No fevers no chills. Blood pressure has been reasonable, he has had no orthostatic issues. Fortunately no blisters or cellulitis of his lower extremities. We discussed sodium intake, he is less careful then he should be but he has improved his habits with respect to decreasing sodium intake. We discussed a regimen and longstanding goal to have him manage his diuretics a bit better. Past Medical History: Diagnosis Date Acidosis Lactic 09/20/2023 Acquired Aortic Valve Disorder 09/19/2023 Aphasia 04/11/2019 Atrial Fibrillation Unspecified (HCC) Basal Cell Carcinoma Skin Other Parts Face 08/19/2023 Diabetes Mellitus Type 2 (HCC) Hyperlipidemia Hypertension NOS Murmur Heart Pain Shoulder Right 04/11/2019 Squamous Cell Carcinoma Skin Other Parts Face 08/19/2023 Stenosis Aortic Valve Acquired Stroke (HCC) Current Outpatient Medications: acetaminophen (TYLENOL) 500 mg tablet, Take 1,000 mg by mouth every 6 (six) hours as needed for pain., Disp: , Rfl: aspirin 81 mg chewable tablet, Chew 1 tablet (81 mg total) daily., Disp: , Rfl: atorvastatin (LIPITOR) 80 mg tablet, Take 1 tablet (80 mg total) by mouth at bedtime., Disp: , Rfl: cholecalciferol 10 mcg (400 Unit) tablet, Take 10 mcg by mouth daily., Disp: , Rfl: colchicine (COLCRYS) 0.6 mg tablet, Take 0.5 tablets (0.3 mg total) by mouth daily., Disp: 45 tablet, Rfl: 3 cyanocobalamin 2,000 mcg tablet, Take 2,000 mcg by mouth daily., Disp: , Rfl: finasteride (PROSCAR) 5 mg tablet, Take 1 tablet (5 mg total) by mouth daily., Disp: , Rfl: glipiZIDE (GLUCOTROL XL) 2.5 mg 24 hr tablet, Take 1 tablet (2.5 mg total) by mouth daily with breakfast., Disp: 30 tablet, Rfl: 0 iron,carbonyl-vitamin C (VITRON-C) 65 mg iron- [address] tablet, Take 1 tablet (65 mg of iron total) by mouth daily. Do not crush or chew., Disp: 90 tablet, Rfl: 3 metoprolol succinate (TOPROL-XL) 50 mg 24 hr tablet, Take 1 tablet by mouth daily., Disp: , Rfl: metoprolol tartrate (LOPRESSOR) 25 mg tablet, Take 1 tablet (25 mg total) by mouth 2 (two) times a day., Disp: 60 tablet, Rfl: 0 predniSONE (DELTASONE) 5 mg tablet, Take 1 tablet (5 mg total) by mouth daily., Disp: 14 tablet, Rfl: 0 rOPINIRole (REQUIP) 0.5 mg tablet, Take 1 tablet (0.5 mg total) by mouth 3 (three) times a day., Disp: , Rfl: spironolactone (ALDACTONE) 25 mg tablet, Take 1 tablet by mouth daily., Disp: , Rfl: tamsulosin (FLOMAX) 0.4 mg 24 hr capsule, Take 1 capsule (0.4 mg total) by mouth at bedtime., Disp:, Rfl: torsemide (DEMADEX) 20 mg tablet, Take 1 tablet (20 mg total) by mouth daily., Disp: , Rfl: warfarin (JANTOVEN) 1 mg tablet, Take per Anticoagulation Clinic, Disp: 180 tablet, Rfl: 3 REVIEW OF SYSTEMS All other systems reviewed and are negative. OBJECTIVE BP 124/76 Pulse 81 Ht 173.9 cm Wt 93.9 kg BMI 31.05 kg/m?? PHYSICAL EXAMINATION General: Awake alert oriented HEENT: EUNICE, EOMI, Mucous membranes moist, no oral lesions Neck: No Masses, No Bruits Lungs: Clear to ascultation Heart: Regular Rate and Rhythm, No ectopy Murmurs or rubs, crisp click noises noted Abdomen: Soft, Non-tender Extremities: No cyanosis, No clubbing he has 3+ lower extremity very firm edema which extends up over the thighs Neuro: Cranial Nerves intact, Gait is slow antalgic, strength grossly normal Skin: no suspicious lesions identified Psychiatric: Normal affect DIAGNOSTICS Note creatinine stable at 2.1 mg/dL, hemoglobin 12.5, microalbumin to creatinine ratio ill 80 milligrams/gram, hemoglobin A1c 9.6% ASSESSMENT / PLAN #1 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 Our goals overall going forward: 1. Goal blood pressures less than 130s to 140s over 80s 2. Goal glycosylated hemoglobin levels less than 8% 3. No NSAIDs or Alexandra 2 inhibitors 4. Low-sodium diet less than 2000 mg sodium per day 5. I have asked for a follow-up visit in Nephrology in 3 months here in [place] 6. Towards the above goals, we will be increasing his diuretic doses as noted below. 7. He needs to follow a low-sodium diet absolutely. # 2. Diabetes mellitus type 2 with peripheral neuropathy Our goal for his glycosylated hemoglobin be a target hemoglobin A1c of less than 8%. He is quite far from this, likely on the background of his corticosteroid use and decrease in his oral hypoglycemic agent regimen. Strongly asked to suggest whether he would benefit from an SG LT 2 inhibitor, this may not be affordable however. I also wonder whether he may not be well served going back on low-dose metformin, 500mg orally daily. He is having his sugars monitored measured here in [place] and I will be available for further fine tuning if necessary. #3 Status post aortic valve replacement on oral anticoagulation His INR has been excellent #4 Secondary renal hyperparathyroidism At his next visit we will check PTH calcium and phosphorus #5 Multifactorial anemia, secondary to relative erythropoietin deficiency and renal failure His hemoglobin has improved it is now 12.5 I advised he could safely stop the iron. #6 Pericarditis Seems to be doing relatively well, he is tapering off of his corticosteroids. #7 Congestive heart failure, with preserved ejection fraction I have asked him to double his torsemide for 3 days, he will then assess his weight, if he has lostsubstantial weight, at least 5-10 lb he can go back to his previous dose of torsemide. However, if he has not lost the weight, I have asked him to continue on the 40 mg of torsemide for an additional week and contact us. Additionally he will restrict his sodium intake to less than 2 g per day I have asked him to elevate his lower extremities I have asked him to utilize compressive lower extremity garments I have asked him to return to clinic in 3 months Total time: 40 minutes Counseling Time: 30 minutes Atif Nance Jr., D.O. documented in this encounter Plan of Treatment Upcoming Encounters Date Type Department Care Team (Latest Contact Info) Description 09/29/2024 1:00 PM TRANSPORT MEDIC Clinical Communication Virtual Review in [place], [place] 200 [place] [address] 10/02/2024 10:00 AM TRANSPORT MEDIC Ancillary Procedure Department of Cardiovascular Medicine in [address] [phone] Deven Clement M.D., M.S. [address] [place] [phone] 10/02/2024 10:45 AM TRANSPORT MEDIC Appointment Department of Radiology, [facility], in [place], [place] [address] [place] [address] Deven Clement M.D., M.S. [address] [place] [phone] 10/02/2024 11:20 AM TRANSPORT MEDIC Appointment Department of Laboratory Medicine and Pathology, [facility] in [place], [place] [address] [place] [phone] Deven Clement M.D., M.S. [address] [place] [phone] 10/02/2024 12:45 PM TRANSPORT MEDIC Appointment Department of Radiology, [facility] in [place], [place] [address] [place] [address] Deven Clement M.D., M.S. [address] [place] [phone] 10/02/2024 2:00 PM TRANSPORT MEDIC Comprehensive Visit Department of Cardiovascular Medicine in [place], [place] [address] [place] [phone] Keagan Tellez M.D. [address] [place] [phone] documented as of this encounter Visit Diagnoses Diagnosis 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 1 To 4 Chronic Kidney Disease Or Unspecified Chronic Kidney Disease- Primary Atrial Fibrillation Paroxysmal (HCC) Anemia In Chronic Kidney Disease Hemiplegia Dominant Side Right (HCC) Hyperparathyroidism Renal Secondary (HCC) Prosthesis Aortic Valve documented in this encounter Additional Health Concerns Assessment Noted Time PHQ-9 Depression Total Score: 1 09/10/20 23 2:06 PM CDT documented as of this encounter Care Teams Director Of Religious Life Relationship Specialty Start Date End Date Kylah Crum M.D. [address] [place] [phone] PCP - General Family Medicine 09/28/23 07/24/24 documented as of this encounter
--- OUTSIDE RECORDS SUMMARY | 2024-08-04 13:52 | XMS_ITS | Encounter Summary ---
Author Organization [facility] Address [address] [place] [address] Care Team Providers Care Pipeline Operator Name Role Phone Kylah Crum M.D. Primary Care Provider Reason for Visit * Reason Onset Date Comments bilateral leg swelling 04/17/2024 [facility] 04/17/2024 Scanned in Encounter Details Date Type Department Care Team (Latest Contact Info) Description 04/17/2024 Clinical Communication Department of Cardiovascular Medicine in [place], [place] [address] [place] [address] Gudelia Soto M.D. [address] [place] [phone] bilateral leg swelling; [facility] (Scanned in) [...] Phone call returned to ANGIE Henriquez at [facility]. She had left for the day so the dock guard left a message with our phone number. * Telephone Encounter - Lester Phelps RJarrettN. - 04/17/2024 3:02 PM CDT Phone call returned to ANGIE Henriquez at the [facility]. Mr. Harris was in clinic for an [...] Harris to see another provider at the [facility] to be assessed. Addendum: Phone call placed [...] (Latest Contact Info) Description 09/29/2024 1:00 PM CROSSING SUPERVISOR Clinical Communication Virtual Review in [place], [place] 200 [place] [address] 10/02/2024 10:00 AM CROSSING SUPERVISOR Ancillary Procedure Department of Cardiovascular Medicine in [place], [place] [address] [place] [phone] Deven Clement M.D., M.S. [address] [place] [phone] 10/02/2024 10:45 AM CROSSING SUPERVISOR Appointment Department of Radiology, [facility], in [place], [place] [address] [place] [phone] Deven Clement M.D., M.S. [address] [place] [phone] 10/02/2024 11:20 AM CROSSING SUPERVISOR Appointment Department of Laboratory Medicine and Pathology, [facility] in [place], [place] [address] [place] [address] Deven Clement M.D., M.S. [address] [place] [address] 10/02/2024 12:45 PM CROSSING SUPERVISOR Appointment Department of Radiology, [facility] in [place], [place] [address] [place] [address] Deven Clement M.D., M.S. [address] [place] [phone] 10/02/2024 2:00 PM CROSSING SUPERVISOR Comprehensive Visit Department of Cardiovascular Medicine in [place], [place] [address] [place] [address] Keagan Tellez M.D. [address] [place] [phone] documented as of this encounter Visit Diagnoses Not on filedocumented in this encounter Additional Health Concerns Assessment Noted Time PHQ-9 Depression Total Score: 1 09/10/20 23 2:06 PM CDT documented as of this encounter Care Teams Pipeline Operator Relationship Specialty Start Date End Date Kylah Crum M.D. NPVeda: [phone] [address] [place] [phone] PCP - General Family Medicine 09/28/23 07/24/24 documented as of this encounter
--- OUTSIDE RECORDS SUMMARY | 2024-08-04 13:52 | XMS_ITS | Encounter Summary ---
Author Organization [facility] Address [address] [place] [address] Care Team Providers Care Tool And Die Manager Name Role Phone Kylah Crum M.D. Primary Care Provider [phone] Reason for Visit * Reason Onset Date Comments Appt Request 04/17/2024 Encounter Details Date Type Department Care Team (Latest Contact Info) Description 04/17/2024 Clinical Communication Division of Nephrology and Hypertension in [place], [place] [address] [place] [address] Mare Arauz M.D., Ph.D. [address] [place] [phone] Appt Request Social History Tobacco Use Types [...] (Latest Contact Info) Description 09/29/2024 1:00 PM NATIONAL VAN OWNER OPERATOR Clinical Communication Virtual Review in [place], [place] [address] [place] [address] 10/02/2024 10:00 AM NATIONAL VAN OWNER OPERATOR Ancillary Procedure Department of Cardiovascular Medicine in [place], [place] [address] [place] [phone] Deven Clement M.D., M.S. [address] [place] [phone] 10/02/2024 10:45 AM NATIONAL VAN OWNER OPERATOR Appointment Department of Radiology, [facility] in [place], [place] [address] [place] [address] Deven Clement M.D., M.S. [address] [place] [phone] 10/02/2024 11:20 AM NATIONAL VAN OWNER OPERATOR Appointment Department of Laboratory Medicine and Pathology, [facility] in [place], [place] [address] [place] [address] Deven Clement M.D., M.S. [address] [place] [phone] 10/02/2024 12:45 PM NATIONAL VAN OWNER OPERATOR Appointment Department of Radiology, [facility] in [place], [place] [address] [place] [address] Deven Clement M.D., M.S. [address] [place] [phone] 10/02/2024 2:00 PM NATIONAL VAN OWNER OPERATOR Comprehensive Visit Department of Cardiovascular Medicine in [place], [place] [address] [place] [phone] Keagan Tellez M.D. [address] [place] [phone] documented as of this encounter Visit Diagnoses Not on filedocumented in this encounter Additional Health Concerns Assessment Noted Time PHQ-9 Depression Total Score: 1 09/10/20 23 2:06 PM CDT documented as of this encounter Care Teams Tool And Die Manager Relationship Specialty Start Date End Date Kylah Crum M.D. [address] [place] [address] [place] [address] PCP - General Family Medicine 09/28/23 07/24/24 documented as of this encounter
--- OUTSIDE RECORDS SUMMARY | 2024-08-04 13:52 | XMS_ITS | Clinical Summary ---
Author Organization [facility] Address [place], [place] [address] Care Team Providers Care Food And Drug Inspector Name Role Phone Kylah Crum [place]ymodesta [facility] [place] Care Provider Medications No known medications Social History Tobacco Use Types Packs/Day Years Used Date Smoking Tobacco: Never Assessed Sex and Gender Information Value Date Recorded Sex Assigned at Not on file Gender Identity Not on file Sexual Orientation Not on file Obstetrics History Last Filed Vital Signs Vital Sign Reading Time Taken Comments Blood Pressure 107/69 10/03/2023 4:23 PM CARTON MAKER Pulse 84 10/03/2023 4:23 PM CARTON MAKER Temperature 36.8 ??C (98.2 ??F) 10/03/2023 3:16 PM CS T Respiratory Rate 20 10/03/2023 3:16 PM CARTON MAKER Oxygen Saturation 98% 10/03/2023 4:23 PM CARTON MAKER Inhaled Oxygen Concentration - - Weight 90.7 kg (200 lb) 10/03/2023 3:08 PM CARTON MAKER Height 172.7 cm (5' 8) 10/03/2023 3:08 PM CARTON MAKER Body Mass Index 30.41 10/03/2023 3:08 PM CARTON MAKER Plan of Treatment Health Maintenance Due Date [...] COVID-19 vaccine series ( - 2022- season) 4 Influenza for age 65+ 07/13/2024 Care Teams Food And Drug Inspector Relationship Specialty Start Date End Date Kylah Crum MBBS [address] [place] [phone] PCP - General Family Practice 10/03/23
--- OUTSIDE RECORDS SUMMARY | 2024-08-04 13:52 | XMS_ITS | Encounter Summary ---
Author Organization [facility] Address [address] [place] [address] Care Team Providers Care Endbander Name Role Phone Unavailable Primary Care Provider Unavailabl e Encounter Details Date Type Department Care Team (Late st Contact Info) Description 07/25/2024 1:35 PM CDT Ancillary Procedure Department of Nursing Social History Tobacco Use Types Packs/Day Years Used Date Smoking Tobacco: Never Smokeless Tobacco: Never Comments:Smoked recreational ly over 40 years ago - a few cigarettes once in a while. Alcohol Use Standard Drinks/Week Comments Never 0 (1 standard drink = 0.6 oz pur e alcohol) [facility] Utilities Answer Date Recorded In the past [...] [facility] live 07/25/2024 Sex and Gender Information Value Date Recorded Sex Assigned at Male 08/29/2023 11:06 AM CDT Gender Identity Male 08/29/2023 11:06 AM CDT Sexual Orientation Straight 08/29/2023 11 :06 AM CDT documented as of this encounter Plan of Treatment Upcoming Encounters Date Type Department Care Team (Latest Contact Info) Description 09/29/2024 1:00 PM EQUINE BREEDER Clinical Communication Virtual Review in [place], [place] [address] [place] [address] 10/02/2024 10:00 AM EQUINE BREEDER Ancillary Procedure Department of Cardiovascular Medicine in [place], [place] [address] [place] [address] Deven Clement M.D., M.S. [address] [place] [phone] 10/02/2024 10:45 AM EQUINE BREEDER Appointment Department of Radiology, [facility] in [place], [place] [address] [place] [address] Deven Clement M.D., M.S. [address] [place] [phone] 10/02/2024 11:20 AM EQUINE BREEDER Appointment Department [facility] in [place], [place] [address] [place] [phone] Deven Clement M.D., M.S. [address] [place] [phone] 10/02/2024 12:45 PM EQUINE BREEDER Appointment Department of Radiology, [facility] in [place], [place] [address] [place] [address] Deven Clement M.D., M.S. [address] [place] [phone] 10/02/2024 2:00 PM EQUINE BREEDER Comprehensive Visit Department of Cardiovascular Medicine in [address] [phone] Keagan Tellez M.D. [address] [place] [phone] documented as of this encounter Procedures Procedure Name Priority Date/Time Associated Diagnosis Comments NURSING IMAGE EXAM Routine 07/25/2024 1: 35 PM CDT documented in this encounter Results * Leg, left-Nursing Image Exam (07/25/2024 1:35 PM CDT) 07/25/2024 1:35 PM CDT Narrative [facility] - 07/25/2024 1:38 PM CDT This order has been created [...]
== END 2024-08-04 13:44 | disposition home or self-care (01) ==
LOC: NFLDREF 13:46
PROVIDERS: PCP Internal Medicine; Visit Provider Internal Medicine
DX: I10 Essential (primary) hypertension (principal); I31.1 Chronic constrictive pericarditis
CPT/HCPCS: 80048

== ENCOUNTER 2024-08-22 15:40 | Outpatient (CLI) | payer MEDICARE, SELFPAY ==
--- OUTSIDE RECORDS SUMMARY | 2024-08-22 15:43 | XMS_ITS | Clinical Summary ---
Author Organization [facility] Address [address] [place] [address] Care Team Providers Care Nanotechnology Engineering Technician Name Role Phone Elsewhere, Pcp Primary Care Provider Unavailabl e Source Comments Patient records contain information from all sites at [facility]. For routine questions regarding patient records, call [phone] during business hours, M-F 8:00 AM - 5:00 PM Central Time. Record requests for emergency care only can be directed to [phone] at any time.[facility] Allergies No known active allergies Medications Medication [...] Call in for dose adjustment 4 Active Additional Information Patient taking differently: Inject 28 units subcutaneously in the morning and 10 units in the evening. 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 Communication 08/05/2024 Clinical Communication Division of Endocrinology in [address] [phone] Lola Payan R.N. Dose Adjustment 08/04/2024 Clinical Communication Division of Endocrinology in [address] [phone] Emerson Goddard R.N. Communication 07/30/2024 9:50 AM CDT Ancillary Procedure Department of Nursing 07/30/2024 9:45 AM CDT Ancillary Procedure Department of Nursing 07/30/2024 Clinical Communication [facility] [address] [place] [phone] Barbara Valencia M.B., B.Ch. 07/28/2024 10:40 AM CDT Ancillary Procedure Department of Nursing 07/25/2024 1:35 PM CDT Ancillary Procedure Department of Nursing 07/25/2024 1:00 PM CDT Ancillary Procedure Department of Nursing 07/24/2024 4:49 PM CDT - 08/01/2024 2:08 PM CDT Hospital Encounter [facility], [facility], Fourth Floor [address] [place] [phone] Fanny Goodwin M.D., M.S. Haily Campbell APRN, C.N.P., D.N.P. Josee Devlin P.A.-C., M.S. Yasmine Garduno M.D., Ph.D. Deven Clement M.D., M.S. Shameka Feldman M.D. Fanny Zelaya M.D. Edema Leg (Primary Dx); Shortness Of Breath; Effusion Pleural; Diabetes Mellitus Type 2 (HCC); Prosthesis Aortic Valve Discharge Disposition: Home or Self Care 06/11/2024 1:30 PM CDT External Outreach Division of Nephrology and Hypertension in [place], [place] [address] [place] [address] Atif Nance Jr., D.O. Hypertensive Heart And [...] = 0.6 oz pur e alcohol) [facility] Utilities Answer Date Recorded In the past 12 months has [facility] [employer], gas, oil, or water [employer] threatened to shut off services in your [...] your living situation today? I have a [facility] place to live 07/25/2024 Sex and [...] (Latest Contact Info) Description 09/29/2024 1:00 PM TIRE TRUCKER Clinical Communication Virtual Review in [place], [place] [address] [place] [address] 10/02/2024 10:00 AM TIRE TRUCKER Ancillary Procedure Department of Cardiovascular Medicine in [address] [phone] Deven Clement M.D., M.S. [address] [place] [phone] 10/02/2024 10:45 AM TIRE TRUCKER Appointment Department of Radiology, [facility] in [place], [place] [address] [place] [phone] Deven Clement M.D., M.S. [address] [place] [phone] 10/02/2024 11:20 AM TIRE TRUCKER Appointment Department of Laboratory Medicine and Pathology, [facility] in [place], [place] [address] [place] [phone] Deven Clement M.D., M.S. [address] [place] [phone] 10/02/2024 12:45 PM TIRE TRUCKER Appointment Department of Radiology, [facility] in [place], [place] [address] [place] [phone] Deven Clement M.D., M.S. [address] [place] [phone] 10/02/2024 2:00 PM TIRE TRUCKER Comprehensive Visit Department of Cardiovascular Medicine in [place], [place] [address] [place] [phone] Keagan Tellez M.D. [address] [place] [phone] Health Maintenance Due Date Last Done Comments [...] Completed 07/25/2024 Medical Devices Implanted Type Area School Psychologist Assistant Device Identifier Shelf Expiration Date Model / Serial / Lot Vlv Aort Cnf [facility] 23 - [id number] - [id number] Implanted:Qty: 1 on 09/19/2023 by Sarah Miller M.D., M.P.H. at [facility] Cardiac Valve Prosthesis N/A: Aortic Valve Artivion (Prev. CryoLife) 2028 ONXACE-2 3 / [id number] / Description:MRI conditional up to 3T, normal mode, per shellfish manager. [email or web address] AFK Clp Hrzn Ti 24 Clp Akhil - [id number] Implanted:Qty: 1 on 09/19/2023 by Sarah Miller M.D., M.P.H. at [facility] Hardware e.g. pins/screws/r ods N/A: Chest [employer] [id number] 04/29/2028 [id number] / / [id number] Clp Hrzn Ti 6 Clp Akhil - [id number] Implanted:Qty: 1 on 09/19/2023 by Sarah Miller M.D., M.P.H. at [facility] Hardware e.g. pins/screws/r ods N/A: Chest [employer] [id number] / / Clp Hrzn Ti 24 Clp Sm Red - [id number] Implanted:Qty: 1 on 09/19/2023 by Sarah Miller M.D., M.P.H. at [facility] Hardware e.g. pins/screws/r ods N/A: Chest [employer] [id number] / / Clp Hrzn Ti 24 Clp Sm Red - [id number] Implanted:Qty: 1 on 09/19/2023 by Sarah Miller M.D., M.P.H. at [facility] Hardware e.g. pins/screws/r ods N/A: Chest [employer] [id number] / / [place] Surg Tfln 1x6 - [id number] Implanted:Qty: 1 on 09/19/2023 by Sarah Miller M.D., M.P.H. at [facility] Hardware e.g. pins/screws/r ods N/A: Chest [employer] [id number] / / Medtronic Linq-05/05/2019 Implanted:04/13 by Chet Badillo M.D., Ph.D. (Quantity not on file) Implantable Loop Recorder Chest Medtronic [id number] / [id number] / Description:MR Conditional 1 .5T and [...] LIPID PANEL, S Routine 12/24/2023 9:44 AM TIRE TRUCKER Stenosis Aortic Valve Acquired COLONOSCOPY Routine 11/21/2022 [...] Unknown Provider LAB POCT ORDERABLES- MANUAL POC [facility] [address] [place] [address], [place] PCLX [facility] Laboratories [facility] POC [address] [place] [address] * (ABNORMAL) Prothrombin Time (PT) (08/01/2024 7:41 [...] Garduno M.D., Ph.D. LAB BLOOD ADD -ON [facility] [address] [place] [address], [place] DTL [facility] [address] [place] [address] * (ABNORMAL) CBC with Differential, Blood (08/01/2024 [...] Clement M.D., M.S. LAB BLOOD ADD -ON [facility] [address] [place] [address], [place] DTL [facility] [address] [place] [address] [facility] [address] [place] [address] * (ABNORMAL) Renal Function Panel (08/01/2024 7:40 [...] LAB BLOOD ADD -ON Performing Organization Address [facility] Co de Phone Number [facility] [address] [place], [place] [address] [address] [place] [address] * (ABNORMAL) Cystatin C with Estimated GFR (08/01/2024 7:40 AM CDT) Only the most recent of2 resultswithin the time period is included. Pathologist [facility] eGFR by Cystatin C 17(L) >60 mL/min/BSA [...] M.D. LAB BLOOD ADD-ON Performing Organization Address City/[facility]/ZIP Co de Phone Number [facility] [address] [place] [address], [place] DTL [facility] [address] [place] [address] * Dipstick, Urine (07/31/2024 11:33 AM CDT) Hemoglobin, QL, U Negative Negative 07/31/2024 12:54 [...] LAB URINE ORDERAB LES Performing Organization Address City/[facility]/ZIP Co de Phone Number [facility] [address] [place], [place] [id number] [place] [address] [facility] [address] [place] [address] * Microscopic Automated (07/31/2024 11:33 AM CDT) Pathologist [facility] Microscopy Normal 07/31/2024 12:54 PM CDT DTL RBC None Seen <3 /hpf 07/31/2024 12:54 PM CDT DTL WBC 1-3 /hpf 07/31/2024 12:54 PM CDT DTL Comment: ----REFERENCE VALUE---- <4 ??(Males) <11 (Females) Casts, Hyaline 4-10 /lpf 07/31/2024 12:54 PM CDT DTL Urine 07/31/2024 11:3 3 AM CDT 07/31/2024 12:11 PM CDT Chelsea Izaguirre M.D. LAB URINE ORDERAB LES Performing Organization Address City/[facility]/ZIP Co de Phone Number [facility] [address] [place] [address], [place] D[facility] 200 [place] [address] * pH, Urine (07/31/2024 11:33 AM CDT) pH, U 6.3 4.5 - 8.0 07/31/2024 12: 53 PM CDT DTL Urine 07/31/2024 11:3 3 AM CDT 07/31/2024 12:11 PM CDT Chelsea Izaguirre M.D. LAB URINE ORDERAB LES Performing Organization Address City/[facility]/ZIP Co de Phone Number [facility] [address] [place], [place] [id number] [place] [address] [address] [place] [address] * Osmolality, Urine (07/31/2024 11:33 AM CDT) Pathologist [facility] Osmolality, U 358 150 - 1150 mOsm/kg 07/31/2024 12:53 PM CDT DTL Urine 07/31/2024 11:3 3 AM CDT 07/31/2024 12:11 PM CDT Chelsea Izaguirre M.D. LAB URINE ORDERAB LES Performing Organization Address City/[facility]/ZIP Co de Phone Number [facility] [address] [place] [address], [facility] 200 [place] [address] * (ABNORMAL) Urinalysis, with Microscopic: Urine, Midstream [...] Clement M.D., M.S. LAB URINE ORD ERABLES [facility] [address] [place] [address], [place] D[facility] [address] [place] [address] * US Kidneys Bilateral with Bladder (07/31/2024 [...] Clement M.D., M.S. LAB BLOOD ADD -ON [facility] [address] [place] [address], [place] [facility] [address] [place] [address] * (ABNORMAL) Basic Metabolic Panel (07/31/2024 7:43 [...] LAB BLOOD ADD -ON Performing Organization Address City/[facility]/ZIP Co de Phone Number [facility] [address] [place] [address], [place] [facility] [address] [place] [address] * Leg, left-Nursing Image Exam (07/30/2024 9:46 [...] NON RAD IMAGI NG PROCEDURES IIMS NA * (ABNORMAL) Hemoglobin A1c (07/29/2024 7:34 [...] LAB BLOOD ADD-O N Performing Organization Address [facility] Co de Phone Number [facility] [address] [place] [address], [place] D[facility] [address] [place] [address] * ECG 12 Lead (07/27/2024 5:27 AM CDT) Only the most recent of3 resultswithin the time period is included. Ventricular Rate ECG/Min 66 BPM MUSE GA Interval 136 ms MUSE QRSD Interval 76 ms MUSE QT Interval 358 ms MUSE QTC Interval 375 ms MUSE P Sullivan 40 degrees MUSE R Sullivan 63 degrees MUSE T Wave Sullivan 122 degrees MUSE 07/27/2024 5:27 AM CDT [...] Ph.D. ECG ORDERABLE S Performing Organization Address [facility]/ZIP Co de Phone Number MUSE NA * (ABNORMAL) Troponin T, 5th Generation (07/26/2024 8:27 AM CDT) Troponin T, 5th gen 110(H) <=15 ng/L 07/26/2024 9:08 AM CDT [facility] Comment:Consider acute myoca rdial injury Blood (Blood, Venous) 07/26/2024 8:27 AM CDT 07/26/2024 8:32 AM CDT Neftaly Gomez M.D. LAB BLOOD ADD-ON Performing Organization Address City/[facility]/ZIP Co de Phone Number [facility] [address] [place] [address], [facility] [address] [place] [address] * (ABNORMAL) Morphology Eval (special smear) (07/26/2024 7:21 AM CDT) Pathologist [facility] Neutrophilic Segs and Bands 85(H) 50 - [...] LAB BLOOD ADD -ON Performing Organization Address City/[facility]/ZIP Co de Phone Number [facility] [address] [place] [address], [place] [facility] [address] [place] [address] * Iron and Total Iron-Binding Capacity (07/26/2024 7:21 AM CDT) Pathologist [facility] Iron 53 50 - 150 mcg/dL 07/26/2024 8:46 AM CDT DTL Total Iron Binding Capacity 270 250 - 400 mcg/dL 07/26/2024 8:46 AM CDT DTL Percent Saturation 20 14 - 50 % 07/26/2024 8:46 AM CDT DTL Blood (Blood, Venous) 07/26/2024 7:21 AM CDT 07/26/2024 8:10 AM CDT Yasmine Garduno M.D., Ph.D. LAB BLOOD ADD -ON Performing Organization Address City/[facility]/ZIP Co de Phone Number [facility] [address] [place] [address], [facility] [address] [place] [address] * Fibrinogen (07/26/2024 7:21 AM CDT) Fibrinogen, P 385 200 - 393 mg/dL 07/26/2024 8:23 AM CDT DTL Blood (Blood, Venous) 07/26/2024 7:21 AM CDT 07/26/2024 7:56 AM CDT Yasmine Garduno M.D., Ph.D. LAB BLOOD ADD -ON Performing Organization Address City/[facility] Co de Phone Number [facility] [address] [place] [address], [place] [facility] [address] [place] [address] * Reticulocytes (07/26/2024 7:21 AM CDT) Reticulocytes, B 1.46 0.60 - 2.71 % 07/26/2024 8:09 AM CDT DTL Absolute Reticulocyte 62.8 30.4 - 110.9 x10(9)/L 07/26/2024 8:09 AM CDT DTL Blood (Blood, Venous) 07/26/2024 7:21 AM CDT 07/26/2024 7:55 AM CDT Yasmine Garduno M.D., Ph.D. LAB BLOOD ADD -ON [facility] [address] [place] [address], [facility] [address] [place] [address] * (ABNORMAL) Haptoglobin (07/26/2024 7:21 AM CDT) Haptoglobin, S <14(L) 30 - 200 mg/dL 07/29/2024 8:13 AM CDT [facility] Blood (Blood, Venous) 07/26/2024 7:21 AM CDT 07/28/2024 6:34 AM CDT Yasmine Garduno M.D., Ph.D. LAB BLOOD ADD -ON Performing Organization Address City/[facility]/ZIP Co de Phone Number [facility] [address] [place] [address] [facility] [address] [place] [address] * Folate (07/26/2024 7:21 AM CDT) Folate, S 11.6 >=4.0 mcg/L 07/28/2024 8: 00 AM CDT [facility] Blood (Blood, Venous) 07/26/2024 7:21 AM CDT 07/26/2024 8:10 AM CDT Yasmine Garduno M.D., Ph.D. LAB BLOOD ADD -ON [facility] [address] [place] [address], [facility] [address] [place] [address] * Ferritin (07/26/2024 7:21 AM CDT) Ferritin, S 179 31 - 409 mcg/L 07/26/2024 8:46 AM CDT DT Blood (Blood, Venous) 07/26/2024 7:21 AM CDT 07/26/2024 8:10 AM CDT Yasmine Garduno M.D., Ph.D. LAB BLOOD ADD -ON [facility] [address] [place] [address], [facility] [address] [place] [address] * (ABNORMAL) Vitamin B12 Assay (07/26/2024 7:21 AM CDT) Vitamin B12 Assay, S 1206(H) 180 - [...] LAB BLOOD ADD -ON Performing Organization Address City/[facility]/ZIP Co de Phone Number [facility] [address] [place] [address], [facility] [address] [place] [address] * (ABNORMAL) Troponin T, 6h, 5th Gen [...] timeframe. 6H Delta Interp SEE COMMENT 07/25/20 8:07 PM CDT [facility] Comment:Test cancelled. Spec imen not received within delta timeframe. Blood 07/25/2024 7:26 PM CDT 07/25/2024 7:33 PM CDT Barbara Jay, B.Ch. LAB BLOO D TROPONIN Performing Organization Address City/[facility]/ZIP Co de Phone Number [facility] [address] [place] [address], [facility] 200 [place] [address] * (ABNORMAL) Troponin T, 2 Hour with 6 Hour Reflex, 5th Gen (07/25/2024 3:42 PM CDT) Only the most recent of2 resultswithin the time period is included. Troponin T, 2 hr, 5th gen 131(H) <=15 ng/L 07/25/2024 4:11 PM CDT [facility] Comment:Consider acute myoca rdial injury 2H Delta % 9 % 07/25/2024 4:11 PM CDT [facility] Comment:6 hour collection pe nding. 2H Delta Interp Not Changing 07/25/2024 4:11 PM CDT [facility] Blood 07/25/2024 3:42 PM CDT 07/25/2024 3:47 PM CDT Barbara Jay, B.Ch. LAB BLOO D TROPONIN Performing Organization Address City/[facility]/ZIP Co de Phone Number [facility] [address] [place] [address], [facility] [address] [place] [address] * (TTE) 2D ECHO DOPPLER COLOR (07/25/2024 3:24 PM CDT) Ejection Fraction 65 MC CV EIMS LV [...] CABG x1, PVI, and DAHIANA amputation (19-SEP-2023, [place]). 3. Small left ventricular chamber size. Abnormal [...] CABG x1, PVI, and DAHIANA amputation (19-SEP-2023, [place]). Echocardiogram performed per left ventricular function protocol [...] prosthesis, CABG x1,PVI, and DAHIANA amputation (19-SEP-2023, [place]). 3. Small left ventricular chamber size. Abnormal [...] prosthesis, CABG x1, PVI,and DAHIANA amputation (19-SEP-2023, [place]). Echocardiogram performed per leftventricular function protocol + [...] Order-Level Documents. Yasmine Garduno M.D., Ph.D. CV EMMETT NORMANLILA * (ABNORMAL) Troponin T, Baseline with 2 Hour/6 Hour Reflex Biomarker Panel (07/25/2024 1:50 PM CDT) Only the most recent of2 resultswithin the time period is included. Troponin T, Baseline, 5th gen 120(H) <=15 ng/L 07/25/2024 2:22 PM CDT [facility] Comment:Consider acute myoca rdial injury Blood (Blood, Venous) 07/25/2024 1:50 PM CDT 07/25/2024 2:05 PM CDT Neftaly Gomez M.D. LAB BLOOD TROPONIN Performing Organization Address City/[facility]/ZIP Co de Phone Number [facility] [address] [place] [address] * (ABNORMAL) CRP (C-Reactive Protein) (07/25/2024 1:50 PM CDT) Pathologist [facility] C-Reactive Protein (CRP), S 6.1(H) <5.0 mg/L 07/25/2024 3:06 PM CDT DTL Blood (Blood, Venous) 07/25/2024 1:50 PM CDT 07/25/2024 2:44 PM CDT Neftaly Gomez M.D. LAB BLOOD ADD-ON [facility] [address] [place] [address], [place] [address] * Sedimentation Rate (07/25/2024 1:49 PM CDT) Sedimentation Rate, B 13 3 - 28 mm/h 07/25/2024 4:17 PM CDT DTL Blood (Blood, Venous) 07/25/2024 1:49 PM CDT 07/25/2024 2:36 PM CDT Neftaly Gomez M.D. LAB BLOOD ADD-ON [facility] [address] [place] [address], [place] DTL [facility] [address] [place] [address] * DX Chest AP or PA and [...] 4826(H) <=540 pg/mL 07/24/2024 5:55 PM CDT [facility] Comment: NT-proBNP values less than 300 [...] D-ON Performing Organization Address [facility] [place] [address], [place] [address] * XR chest 2V-Outside Chest Xray (06/04/2024 [...] PROCEDURES Performing Organization Address [facility] Co de Phone Number IINV NA * Lipid Panel (12/24/2023 9:44 AM TIRE TRUCKER) Pathologist [facility] Triglycerides 68 mg/dL 12/24/2023 1:00 PM TIRE TRUCKER DTL Comment: ----REFERENCE VALUE---- Normal: <150 mg/dL Borderline High: 150-199 mg/dL High: 200-499 mg/dL Very High: > or =500 mg/dL Cholesterol, Total 107 mg/dL 2023 1:00 PM TIRE TRUCKER DTL Comment: ----REFERENCE VALUE---- Desirable: < 200 mg/dL Borderline High: 200 - 239 mg/dL High: > or = 240 mg/dL Cholesterol, LDL, Calculated 50 mg/dL 12/24/2023 1:00 PM TIRE TRUCKER DTL Comment: ----REFERENCE VALUE---- Desirable: <100 mg/dL Above Desirable: 100-129 mg/dL Borderline High: 130-159 mg/dL High: 160-189 mg/dL Very High: >=190 mg/dL ----ADDITIONAL INFORMATION---- LDL cholesterol calculated using the Iglesias/NIH equation. Cholesterol, HDL, S 42 >=40 mg/dL 12/24/2023 1:00 PM TIRE TRUCKER DTL Cholesterol, Non-HDL, Calculated 65 mg/dL 12/24/2023 1:00 PM TIRE TRUCKER DTL Comment: ----REFERENCE VALUE---- Desirable: <130 mg/dL Above Desirable: 130-159 mg/dL Borderline High: 160-189 mg/dL High: 190-219 mg/dL Very High: > or =220 mg/dL Fasting (8 HR or more) yes 12/24/2023 10:18 AM TIRE TRUCKER DTL Blood (Blood, Venous) 12/24/2023 9:44 AM TIRE TRUCKER 12/24/2023 10:18 AM TIRE TRUCKER Gudelia Soto M.D. LAB BLOOD ADD-ON [facility] [address] [place] [address], [place] [facility] [address] [place] [address] * Colonoscopy (11/21/2022) EXT Colonoscopy Normal - See Scanned Report for Details Normal - See Scanned Report for Details, HIMS - Report Received and Scanned Historical Provider GI PROCEDURE ORDERAB LES from Last 3 Months or Most Recently Relevant to Health Maintenance Advance Directives For more information, please contact: [phone] * Full Code (Latest Code Status on [...] Answer Comments Full Code: Discussed Care Teams Nanotechnology Engineering Technician Relationship Specialty Start Date End Date Elsewhere, Pcp PCP - General Internal Medicine 07/28/24
--- OUTSIDE RECORDS SUMMARY | 2024-08-22 15:44 | XMS_ITS | Encounter Summary ---
Author Organization [facility] Address [address] [place] [address] Care Team Providers Care Internal Medicine Physician Name Role Phone Elsewhere, Pcp Primary Care Provider Unavailabl e Reason for Visit * Reason Onset Date Comments Communication 08/04/2024 Encounter Details Date Type Department Care Team (Latest Contact Info) Description 08/04/2024 Clinical Communication Division of Endocrinology in [place], [place] [address] [place] [phone] Emerson Goddard, R.N. Communication Social History Tobacco Use Types Packs/Day Years Used Date Smoking Tobacco: Never Smokeless Tobacco: Never Comments:Smoked recreational ly over 40 years ago - a few cigarettes once in a while. Alcohol Use Standard Drinks/Week Comments Never 0 (1 standard drink = 0.6 oz pur e alcohol) [facility] Utilities Answer Date Recorded In the past 12 months has [facility] [employer], gas, oil, or water [employer] threatened to shut off services in your [...] [facility] 07/25/2024 Sex [...] (Latest Contact Info) Description 09/29/2024 1:00 PM VARNISH MAKER HELPER Clinical Communication Virtual Review in [address] [phone] 10/02/2024 10:00 AM VARNISH MAKER HELPER Ancillary Procedure Department of Cardiovascular Medicine in [address] [phone] Deven Clement M.D., M.S. [address] [place] [phone] 10/02/2024 10:45 AM VARNISH MAKER HELPER Appointment Department of Radiology, [facility] in [address] [phone] Deven Clement M.D., M.S. [address] [place] [phone] 10/02/2024 11:20 AM VARNISH MAKER HELPER Appointment Department of Laboratory Medicine and Pathology, [facility] in [address] [phone] Deven Clement M.D., M.S. [address] [place] [phone] 10/02/2024 12:45 PM VARNISH MAKER HELPER Appointment Department of Radiology, [facility], in [place], [place] [address] [place] [address] [employer], Deven Guerrero M.D., M.S. [address] [place] [phone] 10/02/2024 2:00 PM VARNISH MAKER HELPER Comprehensive Visit Department of Cardiovascular Medicine in [place], [place] [address] [place] [phone] Keagan Tellez M.D. [address] [place] [phone] documented as of this encounter Visit Diagnoses Not on filedocumented in this encounter Additional Health Concerns Assessment Noted Time PHQ-9 Depression Total Score: 1 09/10/20 23 2:06 PM CDT documented as of this encounter Care Teams Internal Medicine Physician Relationship Specialty Start Date End Date Elsewhere, Pcp PCP - General Internal Medicine 07/28/24 documented as of this encounter
--- OUTSIDE RECORDS SUMMARY | 2024-08-22 15:44 | XMS_ITS | Encounter Summary ---
Author Organization [facility] Address [address] [place] [address] Care Team Providers Care [employer] Impregnating Range Tender Name Role Phone Elsewhere, Pcp Primary Care Provider Unavailabl e Reason for Visit * Reason Onset Date Comments Dose Adjustment 08/05/2024 Encounter Details Date Type Department Care Team (Latest Contact Info) Description 08/05/2024 Clinical Communication Division of Endocrinology in [place], [place] [address] [place] [phone] Lola Payan R.N. [address] [place] [phone] Dose Adjustment Social History Tobacco Use Types Packs/Day Years Used Date Smoking Tobacco: Never Smokeless Tobacco: Never Comments:Smoked recreational ly over 40 years ago - a few cigarettes once in a while. Alcohol Use Standard Drinks/Week Comments Never 0 (1 standard drink = 0.6 oz pur e alcohol) [facility] Utilities Answer Date Recorded In the past 12 months has [facility] [employer], gas, oil, or water [employer] threatened to shut off services in your [...] a [facility] place to live 07/25/2024 Sex and Gender Information Value Date Recorded Sex Assigned at Male 08/29/2023 11:06 AM CDT Gender Identity Male 08/29/2023 11:06 AM CDT Sexual Orientation Straight 08/29/2023 11 :06 AM CDT documented as of this encounter Miscellaneous Notes * Telephone Encounter - Lola Payan R.N. - 08/05/2024 7:44 AM CDT INFORMATION DISCUSSED Telephone documentation: Follow up call Patient calls for blood sugar review and insulin dose adjustment. Blood glucose yesterday were 156-*-240-* mg/dL. This morning blood glucose is 141 mg/dL. Nutritional status is: oral intake, consuming baseline. Yesterday, patient took: NPH 25 units in the morning and 10 units in the evening Steroids: Prednisone 20 mg PLAN I, recommended: Increasing insulin doses; Take NPH 28 units in the morning with breakfast and 10 units this evening with the evening meal. Reviewed hypoglycemia symptoms and treatment. Disposition/Recommendations: self care appropriate at this time. Patient will call tomorrow for dose adjustment assistance. Education: patient/caller able to teach back. Caller agreeable to plan of care: Yes The following references were used: nursing clinical judgment documented in this encounter Plan of Treatment Upcoming Encounters Date Type Department Care Team (Latest Contact Info) Description 09/29/2024 1:00 PM DIRECTOR RISK Clinical Communication Virtual Review in [place], [place] [address] [place] [phone] 10/02/2024 10:00 AM DIRECTOR RISK Ancillary Procedure Department of Cardiovascular Medicine in [address] [phone] Deven Clement M.D., M.S. [address] [place] [phone] 10/02/2024 10:45 AM DIRECTOR RISK Appointment Department of Radiology, [facility], in [address] [phone] Deven Clement M.D., M.S. [address] [place] [phone] 10/02/2024 11:20 AM DIRECTOR RISK Appointment Department of Laboratory Medicine and Pathology, [facility] in [place], [place] [address] [place] [phone] Deven Clement M.D., M.S. [address] [place] [phone] 10/02/2024 12:45 PM DIRECTOR RISK Appointment Department of Radiology, [facility] in [place], [place] [address] [place] [address] Deven Clement M.D., M.S. [address] [place] [phone] 10/02/2024 2:00 PM DIRECTOR RISK Comprehensive Visit Department of Cardiovascular Medicine in [place], [place] [address] [place] [phone] Keagan Tellez M.D. [address] [place] [phone] documented as of this encounter Visit Diagnoses Not on filedocumented in this encounter Additional Health Concerns Assessment Noted Time PHQ-9 Depression Total Score: 1 09/10/20 23 2:06 PM CDT documented as of this encounter Care Teams T[employer] Impregnating Range Tender Relationship Specialty Start Date End Date Elsewhere, Pcp PCP - General Internal Medicine 07/28/24 documented as of this encounter
--- OUTSIDE RECORDS SUMMARY | 2024-08-22 15:44 | XMS_ITS | Referral Summary ---
Author Organization [facility] Address [address] [place] [id number] Care Team Providers Care Control Room Operator Name Role Phone Elsewhere, Pcp Primary Care Provider Unavailabl e Source Comments Patient records contain information from all sites at [facility]. For routine questions regarding patient records, call [phone] during business hours, M-F 8:00 AM - 5:00 PM Central Time. Record requests for emergency care only can be directed to [phone] at any time.[facility] Encounters Date Type Department Care Team Description 08/06/2024 Clinical Communication Division of Endocrinology in [address] [phone] Emesron Goddard, RJarrettN. Communication 08/05/2024 Clinical Communication Division of Endocrinology in [address] [phone] Lola Payan RJarrettN. Dose Adjustment 08/04/2024 Clinical Communication Division of Endocrinology in [address] [phone] Emerson Goddard R.N. Communication 07/24/2024 4:49 PM CDT - 08/01/2024 2:08 PM CDT Hospital Encounter [facility], [facility], Fourth Floor [address] [place] [phone] Fanny Goodwin M.D., M.S. Haily Campbell APRNVicenta, D.N.P. Josee Devlin P.A.-C., M.S. Yasmine Garduno [...] Department of Nursing 07/30/2024 Clinical Communication [facility] [address] [place] [phone] Barbara Valencia M.B., B.Ch. 07/28/2024 10:40 AM CDT Ancillary Procedure Department of Nursing 07/25/2024 1:35 PM CDT Ancillary Procedure Department of Nursing 07/25/2024 1:00 PM CDT Ancillary Procedure Department of Nursing 06/11/2024 1:30 PM CDT External Outreach Division of Nephrology and Hypertension in [place], [place] [address] [place] [phone] Atif Nance Jr., D.O. Hypertensive Heart And [...] crush or chew. 90 tablet 3 4 025 Active lancets 2 each daily. 200 each [...] needle 2 Injection daily. 100 each 4 025 Active colchicine (Colcrys) 0.6 mg tablet Take 1 tablet (0.6 mg total) by mouth daily. 30 tablet 4 024 Active pantoprazole (Protonix) 40 mg EC tablet [...] by mouth daily. 30 tablet 4 Active sulfamethoxazo le-trimethopri m (Bactrim) 400-80 mg per tabletIndicati ons:Prophylaxi s, medical Take 1 tablet by mouth daily for 28 doses Indications: Prophylaxis, medical. 28 tablet 4 Active insulin NPH (NovoLIN N FlexPen) 100 [...] (two) times a day. 60 tablet 3 Discontinued glipiZIDE (GLUCOTROL XL) 2.5 mg 24 hr tablet Take 1 tablet (2.5 mg total) by mouth daily with breakfast. 30 tablet 3 024 Discontinued(St op Taking at Discharge) warfarin (JANTOVEN) 1 mg tabletIndicati ons:Prosthesis Aortic Valve Take per Anticoagulation Clinic 180 tablet 3 3 Discontinued torsemide (DEMADEX) 20 mg tablet Take 40 mg by mouth daily. 4 024 Discontinued spironolactone (ALDACTONE) 25 mg tablet Take 1 tablet by mouth daily. 4 024 Discontinued colchicine (COLCRYS) 0.6 mg tablet Take 0.5 tablets (0.3 mg total) by mouth daily. 45 tablet 3 4 09/20/2 024 Discontinued(St op Taking at Discharge) predniSONE [...] Edema Leg 07/25/2024 Hyperparathyroidism Renal Secondary 06/11/2024 Internet Cafe Manager (Current) Anticoagulant Treatment 09/13 Bypass Coronary Artery Graft Status Post 023 Cardiac Surgery Status Post 09/24/2023 Effusion Pleural 09/24/2023 Device Cardiac Status Post 09/23/2023 Overview (09/23/2023): Previously placed loop recorder Therapy Internet Cafe Manager Antiplatelet 09/22/2023 Coronary Arterial Bypass Graft Status [...] = 0.6 oz pur e alcohol) [facility] Sphere Fluidicsities Answer Date Recorded In the past 12 months has e electric, gas, oil, or water [employer] threatened to shut off services in your [...] [facility] 07/25/2024 Sex [...] (Latest Contact Info) Description 09/29/2024 1:00 PM RN WOUND CARE Clinical Communication Virtual Review in [place], [place] 200 [place] [phone] 10/02/2024 10:00 AM RN WOUND CARE Ancillary Procedure Department of Cardiovascular Medicine in [place], [place] [address] [place] [phone] Deven Clement M.D., M.S. [address] [place] [phone] 10/02/2024 10:45 AM RN WOUND CARE Appointment Department of Radiology, [facility] in [place], [place] [address] [place] [phone] Deven Clement M.D., M.S. [address] [place] [phone] 10/02/2024 11:20 AM RN WOUND CARE Appointment Department of Laboratory Medicine and Pathology, [facility] in [place], [place] [address] [place] [phone] Deven Clement M.D., M.S. [address] [place] [phone] 10/02/2024 12:45 PM RN WOUND CARE Appointment Department of Radiology, [facility] in [place], [place] [address] [place] [phone] Deven Clement M.D., M.S. [address] [place] [phone] 10/02/2024 2:00 PM RN WOUND CARE Comprehensive Visit Department of Cardiovascular Medicine in [place], [place] [address] [place] [phone] Keagan Tellez M.D. [address] [place] [phone] Medical Devices Implanted Type Area Entertainment Director Device Identifier Shelf Expiration Date Model / Serial / Lot Vlv Aort Cnf [facility] 23 - [id number] - [id number] Implanted:Qty: 1 on 09/19/2023 by Sarah Miller M.D., M.P.H. at [facility] Cardiac Valve Prosthesis N/A: Aortic Valve Artivion (Prev. CryoLife) 2028 ONXACE-2 / [id number] / Description:MRI conditional up to 3T, normal mode, per shiftman. [email or web address] AFK Clp Hrzn Ti 24 Nika Vallejo Akhil - [id number] Implanted:Qty: 1 on 09/19/2023 by Sarah Miller M.D., M.P.H. at [facility] Hardware e.g. pins/screws/r ods N/A: Chest [employer] [id number] 04/29/2028 [id number] / / [id number] Clp Hrzn Ti 6 Nika Vallejo Akhil - [id number] Implanted:Qty: 1 on 09/19/2023 by Sarah Miller M.D., M.P.H. at [facility] Hardware e.g. pins/screws/r ods N/A: Chest [employer] [id number] / / Clp Hrzn Ti 24 Clp Sm Red - [id number] Implanted:Qty: 1 on 09/19/2023 by Sarah Miller M.D., M.P.H. at [facility] Hardware e.g. pins/screws/r ods N/A: Chest [employer] [id number] / / Clp Hrzn Ti 24 Clp Sm Red - [id number] Implanted:Qty: 1 on 09/19/2023 by Sarah Miller M.D., M.P.H. at [facility] Hardware e.g. pins/screws/r ods N/A: [employer] [id number] / / Wilmer Surg Tfln 1x6 - [id number] Implanted:Qty: 1 on 09/19/2023 by Sarah Miller M.D., M.P.H. at [facility] Hardware e.g. pins/screws/r ods N/A: Chest [employer]al[employer] [id number] / / Medtronic Linq-05/05/2019 Implanted:04/13 by Chet Badillo M.D., Ph.D. (Quantity not on file) Implantable Loop Recorder Chest Medtronic [id number] / [id number] / Description:MR Conditional 1 .5T and 3T - First level operating mode. - Jaryo Abernathy 12/25/2023 Procedures Procedure Name Priority Date/Time [...] LIPID PANEL, S Routine 12/24/2023 9:44 AM RN WOUND CARE Stenosis Aortic Valve Acquired COLONOSCOPY Routine 11/21/2022 [...] ORDERABLES- MANUAL Performing Organization Address City/[facility] Co de Phone Number POC [facility] [address] PCLX [facility] POC [address] [place] [address] * (ABNORMAL) Prothrombin Time (PT) (08/01/2024 7:41 [...] Garduno M.D., Ph.D. LAB BLOOD ADD -ON [facility] 200 [place] [address], [facility] DTL [facility] 200 [place] [address] * (ABNORMAL) CBC with Differential, Blood (08/01/2024 [...] Clement M.D., M.S. LAB BLOOD ADD -ON [facility] [address] [place] [address], [facility] DTL [facility] [address] [place] [address] [facility] [address] [place] [address] * (ABNORMAL) Renal Function Panel (08/01/2024 7:40 AM CDT) Pathologist [facility] Potassium, S 4.4 3.6 - 5.2 mmol/L [...] ADD -ON Performing Organization Address City/[facility]/ZIP Co de Phone Number [facility] 200 [place] [address], [facility] 200 [place] [address] * (ABNORMAL) Cystatin C with Estimated GFR [...] BLOOD ADD-ON Performing Organization Address City/[facility]/ZIP Co de Phone Number [facility] 200 [place] [address], [facility] 200 [place] [address] * Dipstick, Urine (07/31/2024 11:33 AM CDT) [...] LAB URINE ORDERAB LES Performing Organization Address City/[facility]/ZIP Co de Phone Number [address] [address], [facility] [address] [address] * Microscopic Automated (07/31/2024 11:33 AM CDT) [...] Chelsea Izaguirre M.D. LAB URINE ORDERAB LES [facility] 200 [place] [address], [place] [address] * pH, Urine (07/31/2024 11:33 AM CDT) pH, U 6.3 4.5 - 8.0 07/31/2024 12: 53 PM CDT DTL Urine 07/31/2024 11:3 3 AM CDT 07/31/2024 12:11 PM CDT Chelsea Izaguirre M.D. LAB URINE ORDERAB LES Performing Organization Address [facility] Co de Phone Number [facility] 200 [place] [address], [facility] 200 [place] [address] * Osmolality, Urine (07/31/2024 11:33 AM CDT) Osmolality, U 358 150 - 1150 mOsm/kg 07/31/2024 12:53 PM CDT DTL Urine 07/31/2024 11:3 3 AM CDT 07/31/2024 12:11 PM CDT Chelsea Izaguirre M.D. LAB URINE ORDERAB LES Performing Organization Address [facility] Co de Phone Number [facility] 200 [place], [place] [address] 200 [place] [address] * (ABNORMAL) Urinalysis, with Microscopic: Urine, Midstream [...] Clement M.D., M.S. LAB URINE ORD ERABLES [facility] [address] [place] [address], [place] DTL [facility] [address] [place] [address] * US Kidneys Bilateral with Bladder (07/31/2024 [...] Clement M.D., M.S. LAB BLOOD ADD -ON [facility] 200 [place] [address], [facility] 200 [place] [address] * (ABNORMAL) Basic Metabolic Panel (07/31/2024 7:43 [...] LAB BLOOD ADD -ON Performing Organization Address [facility] Co de Phone Number [facility] [address] [place] [address], [facility] [address] [place] [address] * Leg, left-Nursing Image Exam (07/30/2024 9:46 [...] RAD IMAGI NG PROCEDURES Performing Organization Address [facility] Co de Phone Number [facility] NA * (ABNORMAL) Hemoglobin A1c [...] LAB BLOOD ADD-O N Performing Organization Address [facility]/ZIP Co de Phone Number [facility] [address] [place] [address], [place] DTL [facility] [address] [place] [address] * ECG 12 Lead (07/27/2024 5:27 AM CDT) Only the most recent of3 resultswithin the time period is included. Ventricular Rate ECG/Min 66 BPM MUSE AR Interval 136 ms MUSE QRSD Interval 76 ms MUSE QT Interval 358 ms MUSE QTC Interval 375 ms MUSE P [place] 40 degrees MUSE R [place] 63 degrees MUSE T Wave [place] 122 degrees MUSE 07/27/2024 5:27 AM CDT [...] 110(H) <=15 ng/L 07/26/2024 9:08 AM CDT [facility] Comment:Consider acute myoca rdial injury Blood (Blood, Venous) 07/26/2024 8:27 AM CDT 07/26/2024 8:32 AM CDT Neftaly Gomez M.D. LAB BLOOD ADD-ON Performing Organization Address City/[facility] Co de Phone Number [facility] 200 [place] [address], [facility] STMA [facility] 200 [place] [address] * (ABNORMAL) Morphology Eval (special smear) (07/26/2024 [...] renal disease and/or nutritional deficiency. Reviewed by: Parko 07/26/2024 9:28 AM CDT DHPM Blood (Blood, Venous) 07/26/2024 7:21 AM CDT 07/26/2024 7:55 AM CDT Yasmine Garduno M.D., Ph.D. LAB BLOOD ADD -ON Performing Organization Address City/[facility] Co de Phone Number [facility] [address] [place] [address], [facility] 200 [place] [address] * Iron and Total Iron-Binding Capacity (07/26/2024 [...] Garduno M.D., Ph.D. LAB BLOOD ADD -ON [facility] [address] [place] [address] * Fibrinogen (07/26/2024 7:21 AM CDT) Fibrinogen, P 385 200 - 393 mg/dL 07/26/2024 8:23 AM CDT DTL Blood (Blood, Venous) 07/26/2024 7:21 AM CDT 07/26/2024 7:56 AM CDT Yasmine Garduno M.D., Ph.D. LAB BLOOD ADD -ON Performing Organization Address [facility] Co de Phone Number [facility] [address] [place], [place] [address] [place] [address] 200 [place] [address] * Reticulocytes (07/26/2024 7:21 AM CDT) Reticulocytes, B 1.46 0.60 - 2.71 % 07/26/2024 8:09 AM CDT DTL Absolute Reticulocyte 62.8 30.4 - 110.9 x10(9)/L 07/26/2024 8:09 AM CDT DTL Blood (Blood, Venous) 07/26/2024 7:21 AM CDT 07/26/2024 7:55 AM CDT Yasmine Garduno M.D., Ph.D. LAB BLOOD ADD -ON Performing Organization Address City/[facility]/ZIP Co de Phone Number [facility] [address] [place], [place] [address] [place] [address] 200 [place] [address] * (ABNORMAL) Haptoglobin (07/26/2024 7:21 AM CDT) Haptoglobin, S <14(L) 30 - 200 mg/dL 07/29/2024 8:13 AM CDT [facility] Blood (Blood, Venous) 07/26/2024 7:21 AM CDT 07/28/2024 6:34 AM CDT Yasmine Garduno M.D., Ph.D. LAB BLOOD ADD -ON [facility] [address] [place] [address] [facility] [address] [place] [address] * Folate (07/26/2024 7:21 AM CDT) Folate, S 11.6 >=4.0 mcg/L 07/28/2024 8: 00 AM CDT [facility] Blood (Blood, Venous) 07/26/2024 7:21 AM CDT 07/26/2024 8:10 AM CDT Yasmine Garduno M.D., Ph.D. LAB BLOOD ADD -ON Performing Organization Address City/[facility]/ZIP Co de Phone Number [facility] [address] [place] [address], [facility] 200 [place] [address] * Ferritin (07/26/2024 7:21 AM CDT) Ferritin, S 179 31 - 409 mcg/L 07/26/2024 8:46 AM CDT DT Blood (Blood, Venous) 07/26/2024 7:21 AM CDT 07/26/2024 8:10 AM CDT Yasmine Garduno M.D., Ph.D. LAB BLOOD ADD -ON [facility] 200 [place], [place] [address] 200 [place] [address] * (ABNORMAL) Vitamin B12 Assay (07/26/2024 7:21 AM CDT) Pathologist [facility] Vitamin B12 Assay, S 1206(H) 180 - [...] LAB BLOOD ADD -ON Performing Organization Address [facility]/State/[facility] Co de Phone Number [facility] 200 [place], [place] [address] 200 [place] [address] * (ABNORMAL) Troponin T, 6h, 5th Gen (07/25/2024 7:26 PM CDT) Only the most recent of2 resultswithin the time period is included. Pathologist [facility] Troponin T, 6 hr, 5th gen 106(H) [...] LAB BLOO D TROPONIN Performing Organization Address City/[facility]/ZIP Co de Phone Number [facility] [address] 200 [place] [address] * (ABNORMAL) Troponin T, 2 Hour with [...] LAB BLOO D TROPONIN Performing Organization Address City/[facility] Co de Phone Number [facility] 200 [place], [place] [address] [place] [address] 200 [place] [address] * (TTE) 2D ECHO DOPPLER COLOR (07/25/2024 [...] CABG x1, PVI, and DAHIANA amputation (19-SEP-2023, Coward). 3. Small left ventricular chamber size. Abnormal [...] CABG x1, PVI, and DAHIANA amputation (19-SEP-2023, Coward). Echocardiogram performed per left ventricular function protocol [...] prosthesis, CABG x1,PVI, and DAHIANA amputation (19-SEP-2023, Coward). 3. Small left ventricular chamber size. Abnormal [...] prosthesis, CABG x1, PVI,and DAHIANA amputation (19-SEP-2023, Coward). Echocardiogram performed per leftventricular function protocol + [...] 120(H) <=15 ng/L 07/25/2024 2:22 PM CDT [facility] Comment:Consider acute myoca rdial injury Blood (Blood, Venous) 07/25/2024 1:50 PM CDT 07/25/2024 2:05 PM CDT Neftaly Gomez M.D. LAB BLOOD TROPONIN [facility] [address] [facility] 200 [place] [address] * (ABNORMAL) CRP (C-Reactive Protein) (07/25/2024 1:50 PM CDT) C-Reactive Protein (CRP), S 6.1(H) <5.0 mg/L 07/25/2024 3:06 PM CDT DTL Blood (Blood, Venous) 07/25/2024 1:50 PM CDT 07/25/2024 2:44 PM CDT Neftaly Gomez M.D. LAB BLOOD ADD-ON Performing Organization Address City/[facility]/ZIP Co de Phone Number [facility] [address] [place] [address], [facility] DTL [facility] [address] [place] [address] * Sedimentation Rate (07/25/2024 1:49 PM CDT) Sedimentation Rate, B 13 3 - 28 mm/h 07/25/2024 4:17 PM CDT DTL Blood (Blood, Venous) 07/25/2024 1:49 PM CDT 07/25/2024 2:36 PM CDT Neftaly Gomez M.D. LAB BLOOD ADD-ON [facility] [address] [place] [address], [place] DTL [facility] [address] [place] [address] * DX Chest AP or PA and [...] 4826(H) <=540 pg/mL 07/24/2024 5:55 PM CDT [facility] Comment: NT-proBNP values less than 300 pg/mL [...] LAB BLOOD AD D-ON Performing Organization Address [facility] Co de Phone Number [facility] [address] [place] [address], [facility] [address] [place] [address] * XR chest 2V-Outside Chest Xray (06/04/2024 [...] DIAGNOSTIC IM AGING PROCEDURES Performing Organization Address [facility] de Phone Number [facility] NA * Lipid Panel (12/24/2023 9:44 AM RN WOUND CARE) Triglycerides 68 mg/dL 12/24/2023 1:00 PM RN WOUND CARE DTL Comment: ----REFERENCE VALUE---- Normal: <150 mg/dL Borderline High: 150-199 mg/dL High: 200-499 mg/dL Very High: > or =500 mg/dL Cholesterol, Total 107 mg/dL 2023 1:00 PM RN WOUND CARE DTL Comment: ----REFERENCE VALUE---- Desirable: < 200 mg/dL Borderline High: 200 - 239 mg/dL High: > or = 240 mg/dL Cholesterol, LDL, Calculated 50 mg/dL 12/24/2023 1:00 PM RN WOUND CARE DTL Comment: ----REFERENCE VALUE---- Desirable: <100 mg/dL Above Desirable: 100-129 mg/dL Borderline High: 130-159 mg/dL High: 160-189 mg/dL Very High: >=190 mg/dL ----ADDITIONAL INFORMATION---- LDL cholesterol calculated using the Iglesias/NIH equation. Cholesterol, HDL, S 42 >=40 mg/dL 12/24/2023 1:00 PM RN WOUND CARE DTL Cholesterol, Non-HDL, Calculated 65 mg/dL 12/24/2023 1:00 PM RN WOUND CARE DTL Comment: ----REFERENCE VALUE---- Desirable: <130 mg/dL Above Desirable: 130-159 mg/dL Borderline High: 160-189 mg/dL High: 190-219 mg/dL Very High: > or =220 mg/dL Fasting (8 HR or more) yes 12/24/2023 10:18 AM RN WOUND CARE DTL Blood (Blood, Venous) 12/24/2023 9:44 AM RN WOUND CARE 12/24/2023 10:18 AM RN WOUND CARE Gudelia Soto M.D. LAB BLOOD ADD-ON [facility] [address] [place] [address], [facility] [address] [place] [address] * Colonoscopy (11/21/2022) EXT Colonoscopy Normal - See Scanned Report for Details Normal - See Scanned Report for Details, HIMS - Report Received and Scanned Historical Provider GI PROCEDURE ORDERAB LES from Last 3 Months or Most Recently Relevant to Health Maintenance Advance Directives For more information, please contact: [phone] * Full Code (Latest Code Status on [...] Answer Comments Full Code: Discussed Care Teams Control Room Operator Relationship Specialty Start Date End Date Elsewhere, Pcp PCP - General Internal Medicine 07/28/24
--- OUTSIDE RECORDS SUMMARY | 2024-08-22 15:44 | XMS_ITS ---
Author Organization [facility] Address [address] [place] [address] Care Team Providers Care General Manager Food Name Role Phone Unavailable Unavailable Unavailable Surgery Details Not on file Complications Check Surgery Details section. Procedure Estimated Blood Loss Check Surgery Details section. Procedure Findings Check Surgery Details section. Procedure Specimens Taken Check Surgery Details section.
--- OUTSIDE RECORDS SUMMARY | 2024-08-22 15:44 | XMS_ITS | Encounter Summary ---
Author Organization [facility] Address [address] [place] [address] Care Team Providers Care Mild Disabilities Teacher Name Role Phone Elsewhere, Pcp Primary Care Provider Unavailabl e Reason for Visit * Reason Onset Date Comments Communication 08/06/2024 Encounter Details Date Type Department Care Team (Latest Contact Info) Description 08/06/2024 Clinical Communication Division of Endocrinology in [place], [place] [address] [place] [phone] Emerson Goddard, R.N. Communication Social History Tobacco Use Types Packs/Day Years Used Date Smoking Tobacco: Never Smokeless Tobacco: Never Comments:Smoked recreational ly over 40 years ago - a few cigarettes once in a while. Alcohol Use Standard Drinks/Week Comments Never 0 (1 standard drink = 0.6 oz pur e alcohol) [facility] Utilities Answer Date Recorded In the past 12 months has [facility] [employer], gas, oil, or water [employer] threatened to shut off services in your [...] [facility] place to live 07/25/2024 Sex and Gender Information Value Date Recorded Sex Assigned at Male 08/29/2023 11:06 AM CDT Gender Identity Male 08/29/2023 11:06 AM CDT Sexual Orientation Straight 08/29/2023 11 :06 AM CDT documented as of this encounter Miscellaneous Notes * Telephone Encounter - Emerson Goddard R.N. - 08/06/2024 7:40 AM CDT INFORMATION DISCUSSED Phone call from pt for blood sugar review and insulin dose adjustment. Reviewed blood sugars from the past day. Blood sugars yesterday were 141-*-128-* and this am is 117. Pt states he is currently taking Prednisone 20mg QD. PLAN Disposition/Recommendation: Recommended pt continue with current insulin doses of NPH 28-0-10-0. Reviewed Hypoglycemia. Pt to follow up with his PCP for further insulin dose adjustment. Education: patient/caller able to teach back Caller agreeable to plan of care: yes The following references were used: nursing clinical judgement documented in this encounter Plan of Treatment Upcoming Encounters Date Type Department Care Team (Latest Contact Info) Description 09/29/2024 1:00 PM POLICE SERVICE TECHNICIAN Clinical Communication Virtual Review in [place], [place] [address] [place] [address] 10/02/2024 10:00 AM POLICE SERVICE TECHNICIAN Ancillary Procedure Department of Cardiovascular Medicine in [address] [phone] Deven Clement M.D., M.S. [address] [place] [phone] 10/02/2024 10:45 AM POLICE SERVICE TECHNICIAN Appointment Department of Radiology, [facility] in [place], [place] [address] [place] [phone] Deven Clement M.D., M.S. [address] [place] [phone] 10/02/2024 11:20 AM POLICE SERVICE TECHNICIAN Appointment Department of Laboratory Medicine and Pathology, [facility] in [place], [place] [address] [place] [phone] Deven Clement M.D., M.S. [address] [place] [phone] 10/02/2024 12:45 PM POLICE SERVICE TECHNICIAN Appointment Department of Radiology, [facility], in [place], [place] [address] [place] [address] Deven Clement M.D., M.S. [address] [place] [phone] 10/02/2024 2:00 PM POLICE SERVICE TECHNICIAN Comprehensive Visit Department of Cardiovascular Medicine in [place], [place] [address] [place] [address] Keagan Tellez M.D. [address] [place] [phone] documented as of this encounter Visit Diagnoses Not on filedocumented in this encounter Additional Health Concerns Assessment Noted Time PHQ-9 Depression Total Score: 1 09/10/20 23 2:06 PM CDT documented as of this encounter Care Teams Mild Disabilities Teacher Relationship Specialty Start Date End Date Elsewhere, Pcp PCP - General Internal Medicine 07/28/24 documented as of this encounter
--- OUTSIDE RECORDS SUMMARY | 2024-08-22 15:45 | XMS_ITS | Encounter Summary ---
Author Organization [facility] Address [address] [place] [address] Care Team Providers Care Can Vacuum Tester Name Role Phone Kylah Crum M.D. Primary Care Provider Reason for Visit * Reason Onset Date Comments bilateral leg swelling 04/17/2024 [facility] 04/17/2024 Scanned in Encounter Details Date Type Department Care Team (Latest Contact Info) Description 04/17/2024 Clinical Communication Department of Cardiovascular Medicine in [place], [place] [address] [place] [address] Gudelia Soto M.D. [address] [place] [address] bilateral leg swelling; [facility] (Scanned in) [...] Phone call returned to ANGIE Henriquez at [facility]. She had left for the day so the personal secretary left a message with our phone number. * Telephone Encounter - Lester Phelps RJarrettN. - 04/17/2024 3:02 PM CDT Phone call returned to ANGIE Henriquez at the [facility]. Mr. Harris was in clinic for [...] Harris to see another provider at the [facility] to be assessed. Addendum: Phone call [...] (Latest Contact Info) Description 09/29/2024 1:00 PM GREENSKEEPER Clinical Communication Virtual Review in [place], [place] 200 [place] [address] 10/02/2024 10:00 AM GREENSKEEPER Ancillary Procedure Department of Cardiovascular Medicine in [place], [place] [address] [place] [phone] Deven Clement M.D., M.S. [address] [place] [phone] 10/02/2024 10:45 AM GREENSKEEPER Appointment Department of Radiology, [facility], in [place], [place] [address] [place] [phone] Deven Clement M.D., M.S. [address] [place] [phone] 10/02/2024 11:20 AM GREENSKEEPER Appointment Department of Laboratory Medicine and Pathology, [facility] in [place], [place] [address] [place] [address] Deven Clement M.D., M.S. [address] [place] [address] 10/02/2024 12:45 PM GREENSKEEPER Appointment Department of Radiology, [facility] in [place], [place] [address] [place] [address] Deven Clement M.D., M.S. [address] [place] [phone] 10/02/2024 2:00 PM GREENSKEEPER Comprehensive Visit Department of Cardiovascular Medicine in [place], [place] [address] [place] [address] Keagan Tellez M.D. [address] [place] [phone] documented as of this encounter Visit Diagnoses Not on filedocumented in this encounter Additional Health Concerns Assessment Noted Time PHQ-9 Depression Total Score: 1 09/10/20 23 2:06 PM CDT documented as of this encounter Care Teams Can Vacuum Tester Relationship Specialty Start Date End Date Kylah Crum M.D. NPVeda: [id number] [address] [place] [phone] PCP - General Family Medicine 09/28/23 07/24/24 documented as of this encounter
--- OUTSIDE RECORDS SUMMARY | 2024-08-22 15:45 | XMS_ITS | Encounter Summary ---
Author Organization [facility] Address [address] [place] [address] Care Team Providers Care Manager Presentation Name Role Phone Unavailable Primary Care Provider [...] drink = 0.6 oz pur e alcohol) [facility] Utilities Answer Date Recorded In the past [...] [facility] live 07/25/2024 Sex and Gender Information Value Date Recorded Sex Assigned at Male 08/29/2023 11:06 AM CDT Gender Identity Male 08/29/2023 11:06 AM CDT Sexual Orientation Straight 08/29/2023 11 :06 AM CDT documented as of this encounter Plan of Treatment Upcoming Encounters Date Type Department Care Team (Latest Contact Info) Description 09/29/2024 1:00 PM MEDICAL ASSISTANT Clinical Communication Virtual Review in [place], [place] 200 [place] [address] 10/02/2024 10:00 AM MEDICAL ASSISTANT Ancillary Procedure Department of Cardiovascular Medicine in [place], [place] [address] [place] [address] Deven Clement M.D., M.S. [address] [place] [phone] 10/02/2024 10:45 AM MEDICAL ASSISTANT Appointment Department of Radiology, [facility] in [place], [place] [address] [place] [address] Deven Clement M.D., M.S. [address] [place] [phone] 10/02/2024 11:20 AM MEDICAL ASSISTANT [facility]ment [facility] [place] [place] [address] [place] [phone] Deven Clement M.D., M.S. [address] [place] [phone] 10/02/2024 12:45 PM MEDICAL ASSISTANT Appointment Department of Radiology, [facility] in [place], [place] [address] [place] [address] Deven Clement M.D., M.S. [address] [place] [phone] 10/02/2024 2:00 PM MEDICAL ASSISTANT Comprehensive Visit Department of Cardiovascular Medicine in [address] [phone] Keagan Tellez M.D. [address] [place] [phone] documented as of this encounter Procedures Procedure [...]
--- OUTSIDE RECORDS SUMMARY | 2024-08-22 15:45 | XMS_ITS | Encounter Summary ---
Author Organization [facility] Address [address] [place] [address] Care Team Providers Care Sales Associate Cashier Name Role Phone Elsewhere, Pcp Primary Care [...] drink = 0.6 oz pur e alcohol) [facility] Utilities Answer Date Recorded In the [...] (Latest Contact Info) Description 09/29/2024 1:00 PM PHLEBOTOMIST ASSOCIATE Clinical Communication Virtual Review in [address] [phone] 10/02/2024 10:00 AM PHLEBOTOMIST ASSOCIATE Ancillary Procedure Department of Cardiovascular Medicine in [place], [place] [address] [place] [phone] Deven Clement M.D., M.S. [address] [place] [phone] 10/02/2024 10:45 AM PHLEBOTOMIST ASSOCIATE Appointment Department of Radiology, [facility] in [place], [place] [address] [place] [address] Deven Clement M.D., M.S. [address] [place] [phone] 10/02/2024 11:20 AM PHLEBOTOMIST ASSOCIATE Appointment Department of Laboratory Medicine and Pathology, [facility] in [place], [place] [address] [place] [phone] Deven Clement M.D., M.S. [address] [place] [phone] 10/02/2024 12:45 PM PHLEBOTOMIST ASSOCIATE Appointment Department of Radiology, [facility] in [place], [place] [address] [place] [address] Deven Clement M.D., M.S. [address] [place] [phone] 10/02/2024 2:00 PM PHLEBOTOMIST ASSOCIATE Comprehensive Visit Department of Cardiovascular Medicine in [address] [phone] Keagan Tellez M.D. [address] [place] [phone] documented as of this encounter Procedures Procedure [...] as of this encounter Care Teams Sales Associate Cashier Relationship Specialty Start Date End Date Elsewhere, Pcp PCP - General Internal Medicine 07/28/24 documented as of this encounter
--- OUTSIDE RECORDS SUMMARY | 2024-08-22 15:45 | XMS_ITS | Encounter Summary ---
Author Organization [facility] Address [address] [place] [address] Care Team Providers Care Acid Etch Operator Name Role Phone Unavailable Primary Care Provider [...] = 0.6 oz pur e alcohol) [facility] Utilities Answer Date Recorded In the past [...] living situation today? I have a [facility] place to live 07/25/2024 Sex and Gender Information Value Date Recorded Sex Assigned at Male 08/29/2023 11:06 AM CDT Gender Identity Male 08/29/2023 11:06 AM CDT Sexual Orientation Straight 08/29/2023 11 :06 AM CDT documented as of this encounter Plan of Treatment Upcoming Encounters Date Type Department Care Team (Latest Contact Info) Description 09/29/2024 1:00 PM SUPERVISOR MOTOR VEHICLE ASSEMBLY Clinical Communication Virtual Review in [place], [place] [address] [place] [address] 10/02/2024 10:00 AM SUPERVISOR MOTOR VEHICLE ASSEMBLY Ancillary Procedure Department of Cardiovascular Medicine in [place], [place] [address] [place] [address] Deven Clement M.D., M.S. [address] [place] [phone] 10/02/2024 10:45 AM SUPERVISOR MOTOR VEHICLE ASSEMBLY Appointment Department of Radiology, [facility] in [place], [place] [address] [place] [address] Deven Clement M.D., M.S. [address] [place] [phone] 10/02/2024 11:20 AM SUPERVISOR MOTOR VEHICLE ASSEMBLY [facility]ment [facility] [place] [place] [address] [place] [address] Deven Clement M.D., M.S. [address] [place] [phone] 10/02/2024 12:45 PM SUPERVISOR MOTOR VEHICLE ASSEMBLY Appointment Department of Radiology, [facility] in [place], [place] [address] [place] [address] Deven Clement M.D., M.S. [address] [place] [phone] 10/02/2024 2:00 PM SUPERVISOR MOTOR VEHICLE ASSEMBLY Comprehensive Visit Department of Cardiovascular Medicine in [address] [phone] Keagan Tellez M.D. [address] [place] [phone] documented as of this encounter Procedures Procedure [...]
--- OUTSIDE RECORDS SUMMARY | 2024-08-22 15:45 | XMS_ITS | Encounter Summary ---
Author Organization [facility] Address [address] [place] [address] Care Team Providers Care It Security Consulting Director Name Role Phone Elsewhere, Pcp Primary Care Provider Unavailabl e Reason for Visit * Reason Comments Leg Swelling * Auth/Cert (Routine) Specialty Diagnoses / Procedures Referred By Contac t Referred To Contact Diagnoses Edema Leg Procedures OBS TO INPT Referral ID Status Reason Start Date Expiration Date Visits Re quested Visits Authorized [id number] 1 1 Encounter Details Date Type Department Care Team (Latest Contact Info) Description 07/24/2024 4:49 PM CDT - 08/01/2024 2:08 PM CDT Hospital Encounter [facility], [facility], [facility], Fourth Floor [address] [place] [phone] Fanny Goodwin M.D., M.S. [address] [place] [phone] Haily Campbell APRN, C.N.P., D.N.P. [address] [place] [phone] Josee Devlin P.A.-C., M.S. [address] [place] [phone] Yasmine Garduno M.D., Ph.D. [address] [place] [phone] Deven Clement M.D., M.S. [address] [place] [phone] Shameka Feldman M.D. [address] [place] [phone] Fanny Zelaya M.D. [address] Edema Leg (Primary Dx); Shortness Of [...] drink = 0.6 oz pur e alcohol) [facility] Utilities Answer Date Recorded In the past 12 months has e [place], gas, oil, or water Appear threatened to shut off services in your [...] [facility] to live 07/25/2024 Sex [...] 10/02/2024 10:00 AM ECG 01 [facility] CVD Cardiovascular Disease 10/02/2024 10:45 AM [...] May. ED Course Mr Harris presented to [facility] ED on 07/24/24 with complaints of progressive [...] consistently out of goal range. Call in [facility]: Please call the Diabetes Consulting Service at (pager [phone]) from 7:30 AM to 9:00 AM for [...] management, yearly follow up with a local Clinical Laboratory Director and Dietitian is recommended. Please check with your insurance company as diabetes education visits are commonly covered. Your primary care provider can provide referrals for education. * Attachments The following attachments cannot be sent through Care Everywhere. * Insulin NPH (By injection) (Austrian) * Pantoprazole (By mouth) (Austrian) * Prednisone (By mouth) (Austrian) * Sulfamethoxazole/Trimethoprim (By mouth) (Austrian) documented in this encounter Medications at Time [...] R.N., C.W.O.C.N. - 08/01/2024 11:12 AM CDT [facility] Wound RN reconsulted to assess Jong [...] None *Signs of Infection None *Wound Bed Kings Grant;Open Tissue Exposed None Odor None *Exudate Amount [...] Secondary Dressing Status Clean;Dry;Intact Changed by Wound medical office administrator Ongoing management Nursing;Patient/caregiver [REMOVED] Wound 07/28/24 Neuropathic [...] nursing. They agree to the plan. The [facility] RN will sign-off. Please place a wound care consult for any new concerns. Electronically signed by: Jana Holcomb R.N., LiliyaCJarrettN. 08/01/24 11:12 AM CDT Page Me Weekend Pager is [phone] (available Saturdays [phone]) * Hyacinth Tavares, PharmJarrettD., R.Ph., [facility] - 08/01/2024 7:34 AM CDT Pharmacist Progress [...] of steroids - DCS consulted - Holding BUILDING SERVICES ENGINEER Glipizide - Moderate CS TID - NPH 10 units AM and 6 unit in PM - 1:10 ICR Aspart with meals TID #Paroxyasmal AF - Continue BUILDING SERVICES ENGINEER Warfarin #BPH - Continue BUILDING SERVICES ENGINEER Tamsulosin + Finasteride #Stroke #HTN #HLD VTE: N/A due to therapeutic anti-coagulation Code Status: Full Code Disposition: Uncertain Plan discussed with RST CARD 2 Pipe Tester, Deven Olmedo M.D., who was present during [...] the ultrasound. Prior chest x-ray has shown [id number] left pleural effusion. CRP at admission is [...] 2 weeks * Zunilda Kennedy, Pharm.D., R.Ph., [facility] [place] - 07/31/2024 9:39 AM CDT Warfarin Warfarin [...] of steroids - DCS consulted - Holding BUILDING SERVICES ENGINEER Glipizide - Moderate CS TID - NPH 10 units AM and 6 unit in PM - 1:10 ICR Aspart with meals TID #Paroxyasmal AF - Continue BUILDING SERVICES ENGINEER Warfarin #BPH - Continue BUILDING SERVICES ENGINEER Tamsulosin + Finasteride #Stroke #HTN #HLD VTE: N/A due to therapeutic anti-coagulation Code Status: Full Code Disposition: Uncertain Plan discussed with RST CARD 2 Pipe Tester, Deven Olmedo M.D., who was present during [...] insulin twice daily in the setting of custodial steroids. Once patient is off of steroids he can likely stop insulin and resume Glipizide. Blood Glucose Frequency: twice daily Goal: 120-180 mg/dL, higher goal due to comorbidities Final DCS recommendations and prescriptions updated for dismissal. Discussed above plan with the patient. Patient is alert and oriented and in agreement with the plan. DCS pager [phone] will continue to follow. Call primary service for diabetes concerns between 6:30 p.m. and 6:30 a.m. Primary service to contact python developer Endocrinology fellow via hospital nuclear waste process operator for questions. * Zunilda Kennedy, Luis Carlos.D., R.Ph., [facility] [place] - 07/30/2024 9:21 AM CDT Pharmacist Progress [...] of steroids - DCS consulted - Holding BUILDING SERVICES ENGINEER Glipizide - Moderate CS TID - NPH 10 units BID #Paroxyasmal AF - Continue BUILDING SERVICES ENGINEER Warfarin #BPH - Continue BUILDING SERVICES ENGINEER Tamsulosin + Finasteride #Stroke #HTN #HLD VTE: N/A due to therapeutic anti-coagulation Code Status: Full Code Disposition: Uncertain Plan discussed with RST CARD 2 Pipe Tester, Yasmine Cloud M.D., who was present during [...] patient to review AVS for final recommendations. staff development educator number provided for outpatient follow-up. REFERENCES: Medications: Insulin ([id number]) Using an insulin pen ([id number]) Diabetes Record Sheet ([id number]) Hypoglycemia ([id number]) Hyperglycemia ([id number]) * Jack Mcclendon, Pharm.D., R.Ph., BCPS, M.B.A. [...] about patient's nutritional care please contact pager [phone] on weekdays or [phone] on weekends/holidays. * Yasmine Garduno M.D., Ph.D. [...] None *Signs of Infection None *Wound Bed Open;Brown;Kings Grant Tissue Exposed None Odor Mild *Exudate Amount Scant Drainage Description Serosanguineous Gauri-wound Assessment Fragile Treatments Cleansed Periwound Treatment Cleansed (Comment) Wound Cleansed with Cleansing wipes *Primary Dressing Gelling fiber/Hydrofiber ([employer]) *Primary Dressing Frequency of Change Daily & PRN Primary Dressing Changed New Primary Dressing Status Clean;Dry;Intact Changed by Wound medical office administrator Ongoing management Nursing;Wound/treasury director Focused assessment completed as other wounds were [...] PM CDT Page Me Weekend Pager is [phone] (available Saturdays [phone]) * Barbara Valencia M.B., B.Ch. - 07/28/2024 [...] Problems: #T2DM c/b peripheral neuropathy - Holding BUILDING SERVICES ENGINEER Glipizide - Moderate CS Insulin #Paroxyasmal AF - Continue BUILDING SERVICES ENGINEER Warfarin #BPH - Continue BUILDING SERVICES ENGINEER Tamsulosin + Finasteride #Stroke #HTN #HLD VTE: N/A due to therapeutic anti-coagulation Code Status: Full Code Disposition: Uncertain Plan discussed with RST CARD 2 Pipe Tester, Yasmine Cloud M.D., who was present during smallwood portions of the evaluation today. Misty Webb, B.Ch. * Zunilda Kennedy Pharm.D., R.Ph., [facility] [place] - 07/28/2024 8:10 AM CDT Pharmacist Progress [...] Problems: #T2DM c/b peripheral neuropathy - Holding BUILDING SERVICES ENGINEER Glipizide - Moderate CS Insulin #Paroxyasmal AF - Continue BUILDING SERVICES ENGINEER Warfarin #BPH - Continue BUILDING SERVICES ENGINEER Tamsulosin + Finasteride #Stroke #HTN #HLD VTE: N/A due to therapeutic anti-coagulation Code Status: Full Code Disposition: Uncertain Plan discussed with RST CARD 2 Pipe Tester, Yasmine Cloud M.D., who was present during [...] Problems: #T2DM c/b peripheral neuropathy - Holding BUILDING SERVICES ENGINEER Glipizide - Moderate CS Insulin #Paroxyasmal AF - Continue BUILDING SERVICES ENGINEER Warfarin #BPH - Continue BUILDING SERVICES ENGINEER Tamsulosin + Finasteride #CKD IIIB #Stroke #HTN #HLD VTE: N/A due to therapeutic anti-coagulation Code Status: Full Code Disposition: Uncertain Plan discussed with RST CARD 2 Pipe Tester, Yasmine Cloud M.D., who was present during [...] Unable to Measure Y *Wound Bed Open;Partial thickness;Kings Grant Tissue Exposed None Odor None *Exudate Amount Scant Drainage Description Serous Gauri-wound Assessment Edema;Dry *Primary Dressing Gelling fiber/Hydrofiber *Primary Dressing Frequency of Change Daily & PRN *Secondary Dressing Gauze;Compression wrap *Secondary Dressing Frequency of Change Daily & PRN Changed by Unit based nurse Complications none Ongoing management Nursing;Wound/treasury directordecision science analyst done by WOC RN? Yes Focused assessment completed as patient was sitting in chair with primary completing assessment. RNreported no other concerns. DRESSING RECOMMENDATIONS: #1 Moisture Associated Skin Damage Bilateral Lower Legs Circumferential -Cleanse the wound with Vashe wound cleanser and 4x4 gauze. Pat dry. -Place Stunnel Ag and cut to slightly larger than [...] CABG x1, PVI, and DAHIANA amputation (19-SEP-2023, [place]). 3. Normal left ventricular chamber size, calculated [...] - Commence Prednisone 20mg QD - Continue BUILDING SERVICES ENGINEER Aspirin 81mg QD - Continue Warfarin - Continue Colchicine 0.3mg QD - Continue Metoprolol Succinate 50mg QD Chronic Problems: #T2DM c/b peripheral neuropathy - Holding BUILDING SERVICES ENGINEER Glipizide - Moderate CS Insulin #Paroxyasmal AF - Continue BUILDING SERVICES ENGINEER Warfarin #BPH - Continue BUILDING SERVICES ENGINEER Tamsulosin + Finasteride #CKD IIIB #Stroke #HTN [...] of breath and leg swelling. [facility] [...] follow up. Fanny Goodwin M.D., M.S. 07/24/24 [id number] documented in this encounter Consult Notes * [...] Thank you for the consult. DCS pager [phone] will follow. Call primary service for diabetes concerns between 6:30 p.m. and 6:30 a.m. Primary service to contact python developer Endocrinology fellow via hospital nuclear waste process operator for questions. * Benji Pizano M.D. - 07/25/2024 6:58 AM CDTAssociated Order(s): IP CONSULT TO CARDIOLOGY CARDIOLOGY CONSULT NOTE ED Requesting Pipe Tester: Haily Campbell APRN Cardiology Collaborating RN: Karen [...] CABG x1, PVI, and DAHIANA amputation (19-SEP-2023, [place]). 3. Normal left ventricular chamber size, calculated [...] renal failure versus less likely ACS or NV. Also considered pleural effusion, pneumonia, or viral [...] a good candidate for observation in the [facility] with diuresis and cardiology consultation in the [...] or amended. Fanny Goodwin M.D., M.S. 07/24/24 [phone] * Emerson Burns D.N.P., R.N. - 07/24/2024 5:04 PM CDT Patient comes in with shortness of breath and lower extremity edema, worsening over the past few days. History of Aortic valve replacement (mechanical), with pericarditis complication. Since valve replacement, has suffered heart failure. Also significant CKD. His PCP at [place] was unable to get him admitted due [...] May. ED Course Mr Harris presented to [facility] ED on 07/24/24 with complaints of progressive [...] (Latest Contact Info) Description 09/29/2024 1:00 PM FRAUD MANAGER Clinical Communication Virtual Review in [address] [phone] 10/02/2024 10:00 AM FRAUD MANAGER Ancillary Procedure Department of Cardiovascular Medicine in [address] [phone] Deven Clement M.D., M.S. [address] [place] [place] [phone] 10/02/2024 10:45 AM FRAUD MANAGER Appointment Department of Radiology, [facility], in [address] [phone] Deven Clement M.D., M.S. [address] [place] [place] [phone] 10/02/2024 11:20 AM FRAUD MANAGER Appointment Department of Laboratory Medicine and Pathology, [facility] in [place], [place] [address] [place] [address] Deven Clement M.D., M.S. [address] [place] [phone] 10/02/2024 12:45 PM FRAUD MANAGER Appointment Department of Radiology, [facility] in [place], [place] [address] [place] [address] Deven Clement M.D., M.S. [address] [place] [phone] 10/02/2024 2:00 PM FRAUD MANAGER Comprehensive Visit Department of Cardiovascular Medicine in [place], [place] [address] [place] [address] Keagan Tellez M.D. [address] [place] [phone] documented as of this encounter Procedures Procedure [...] Unknown Provider LAB POCT ORDERABLES- MANUAL POC [facility] 200 [place] [address], [facility] POC 200 [place] [address] * (ABNORMAL) Prothrombin Time (PT) (08/01/2024 7:41 AM CDT) Pathologist [facility] Prothrombin Time, P 22.1(H) 9.4 - 12.5 sec 08/01/2024 8:45 AM CDT DTL INR 2.0 0.9 - 1.1 08/01/2024 8:45 AM CDT DTL Comment: ----ADDITIONAL INFORMATION---- Standard intensity warfarin therapeutic range: 2.0 to 3.0 ?? High intensity warfarin therapeutic range: 2.5 to 3.5 Blood (Blood, Venous) 08/01/2024 7:41 AM CDT 08/01/2024 8:25 AM CDT Yasmine Garduno M.D., Ph.D. LAB BLOOD ADD -ON [facility] 200 [place] [address], [facility] DTL [facility] 200 [place] [address] * (ABNORMAL) CBC with Differential, Blood (08/01/2024 [...] Clement M.D., M.S. LAB BLOOD ADD -ON [facility] [address] [place] [address], [facility] DTL [facility] [address] [place] [address] [facility] [address] [place] [address] * (ABNORMAL) Cystatin C with Estimated GFR (08/01/2024 7:40 AM CDT) [facility] eGFR by Cystatin C 17(L) >60 mL/min/BSA [...] CDT Shameka Feldman M.D. LAB BLOOD ADD-ON [facility] [address] [address], [facility] [address] [address] * (ABNORMAL) Renal Function Panel (08/01/2024 7:40 AM CDT) [facility] Potassium, S 4.4 3.6 - 5.2 [...] Clement M.D., M.S. LAB BLOOD ADD -ON [facility] [address] [place] [address], [facility] DTL [facility] 200 [place] [address] * (ABNORMAL) Glucose, POCT (08/01/2024 6:36 AM CDT) Glucose, POCT, B 144(H) 70 - 140 mg/dL 08/01/2024 6:39 AM CDT PCLX Last Intake > 4 hours 08/01/2024 6:39 AM CDT P[facility] Blood 08/01/2024 6:36 AM CDT 08/01/2024 6:39 AM CDT Unknown Provider LAB POCT ORDERABLES- MANUAL Performing Organization Address City/[facility]/ZIP Co de Phone Number POC [facility] [address] [place] [address], [facility] POC [address] [place] [address] * (ABNORMAL) Glucose, POCT (07/31/2024 9:52 PM CDT) Glucose, POCT, B 284(H) 70 - 140 mg/dL 07/31/2024 10:05 PM CDT PCLX Last Intake 1-2 hours 07/31/2024 10:05 PM CDT P[facility] Blood 07/31/2024 9:52 PM CDT 07/31/2024 10:05 PM CDT Unknown Provider LAB POCT ORDERABLES- MANUAL Performing Organization Address City/[facility]/ZIP Co de Phone Number POC [facility] [address] [place] [address], [facility] POC [address] [place] [address] * Glucose, POCT (07/31/2024 5:25 PM CDT) Glucose, POCT, B 110 70 - 140 mg/dL 07/31/2024 5:27 PM CDT PCLX Site Capillary 07/31/2024 5:27 PM CDT PCLX Last Intake 3-4 hours 07/31/2024 5:27 PM CDT [facility] Blood 07/31/2024 5:25 PM CDT 07/31/2024 5:27 PM CDT Unknown Provider LAB POCT ORDERABLES- MANUAL Performing Organization Address [facility] de Phone Number POC [facility] [address] [place] [address], [facility] POC [address] [place] [address] * (ABNORMAL) Glucose, POCT (07/31/2024 12:09 PM CDT) Glucose, POCT, B 243(H) 70 - 140 mg/dL 07/31/2024 12:11 PM CDT PCLX Blood 07/31/2024 12:0 9 PM CDT 07/31/2024 12:11 PM CDT Unknown Provider LAB POCT ORDERABLES- MANUAL Performing Organization Address City/[facility]/ZIP Co de Phone Number POC [facility] [address] [place] [address], [place] [facility] POC 200 [place] [address] * Dipstick, Urine (07/31/2024 11:33 AM CDT) Pathologist [facility] Hemoglobin, QL, U Negative Negative 07/31/2024 12:54 [...] Chelsea Izaguirre M.D. LAB URINE ORDERAB LES [facility] 200 [place] [address], [facility] 200 [place] [address] * pH, Urine (07/31/2024 11:33 AM CDT) [facility] pH, U 6.3 4.5 - 8.0 07/31/2024 12: 53 PM CDT DTL Urine 07/31/2024 11:3 3 AM CDT 07/31/2024 12:11 PM CDT Chelsea Izaguirre M.D. LAB URINE ORDERAB LES [facility] [address] [place] [address], [facility] 200 [place] [address] * Microscopic Automated (07/31/2024 11:33 AM CDT) [facility] Microscopy Normal 07/31/2024 12:54 PM CDT DTL RBC None Seen <3 /hpf 07/31/2024 12:54 PM CDT DTL WBC 1-3 /hpf 07/31/2024 12:54 PM CDT DTL Comment: ----REFERENCE VALUE---- <4 ??(Males) <11 (Females) Casts, Hyaline 4-10 /lpf 07/31/2024 12:54 PM CDT DTL Urine 07/31/2024 11:3 3 AM CDT 07/31/2024 12:11 PM CDT Chelsea Izaguirre M.D. LAB URINE ORDERAB LES Performing Organization Address City/[facility]/ZIP Co de Phone Number [facility] 200 [place], [place] [phone] [place] [address] * Osmolality, Urine (07/31/2024 11:33 AM CDT) Pathologist [facility] Osmolality, U 358 150 - 1150 mOsm/kg 07/31/2024 12:53 PM CDT DTL Urine 07/31/2024 11:3 3 AM CDT 07/31/2024 12:11 PM CDT Chelsea Izaguirre M.D. LAB URINE ORDERAB LES Performing Organization Address City/[facility] Co de Phone Number [facility] 200 [place], [place] [phone] [place] [phone] * (ABNORMAL) Urinalysis, with Microscopic: Urine, Midstream [...] Clement M.D., M.S. LAB URINE ORD ERABLES [facility] [address] [place] [address], [facility] DTL [facility] [address] [place] [address] * US Kidneys Bilateral with Bladder (07/31/2024 [...] LAB BLOOD ADD -ON Performing Organization Address City/[facility]/[place] [address], [facility] [place] [address] [place] [address] * (ABNORMAL) Magnesium (07/31/2024 7:43 AM CDT) Magnesium, S 2.5(H) 1.7 - 2.3 mg/dL 07/31/2024 10:14 AM CDT DTL Blood (Blood, Venous) 07/31/2024 7:43 AM CDT 07/31/2024 9:25 AM CDT Deven Clement M.D., M.S. LAB BLOOD ADD -ON [facility] [address] [place] [address], [facility] DTL [facility] [address] [place] [address] * (ABNORMAL) Basic Metabolic Panel (07/31/2024 7:43 AM CDT) Pathologist [facility] Potassium, S 4.2 3.6 - 5.2 mmol/L [...] Clement M.D., M.S. LAB BLOOD ADD -ON [facility] [address] [place] [address], [facility] DTL [facility] [address] [place] [address] * (ABNORMAL) CBC with Differential, Blood (07/31/2024 7:43 AM CDT) [facility] Hemoglobin 12.0(L) 13.2 - 16.6 g/dL 07/31/2024 [...] Clement M.D., M.S. LAB BLOOD ADD -ON [facility] [address] [place] [address], [facility] DTL [facility] [address] [place] [address] [facility] [address] [place] [address] * Glucose, POCT (07/31/2024 6:11 AM CDT) Glucose, POCT, B 104 70 - 140 mg/dL 07/31/2024 6:15 AM CDT PCLX Last Intake 3-4 hours 07/31/2024 6:15 AM CDT PCL[facility] Blood 07/31/2024 6:11 AM CDT 07/31/2024 6:15 AM CDT Unknown Provider LAB POCT ORDERABLES- MANUAL POC [facility] [address] [place] [address], [facility] POC [address] [place] [address] * Glucose, POCT (07/30/2024 9:30 PM CDT) Glucose, POCT, B 138 70 - 140 mg/dL 07/30/2024 9:36 PM CDT PCLX Site Capillary 07/30/2024 9:36 PM CDT PCLX Last Intake > 4 hours 07/30/2024 9:36 PM CDT PCLX Blood 07/30/2024 9:30 PM CDT 07/30/2024 9:36 PM CDT Unknown Provider LAB POCT ORDERABLES- MANUAL POC [facility] [address] [place] [address], [facility] POC [address] [place] [address] * Glucose, POCT (07/30/2024 5:00 PM CDT) Glucose, POCT, B 118 70 - 140 mg/dL 07/30/2024 5:14 PM CDT PCLX Site Capillary 07/30/2024 5:14 PM CDT PCLX Last Intake > 4 hours 07/30/2024 5:14 PM CDT PCLX Blood 07/30/2024 5:00 PM CDT 07/30/2024 5:14 PM CDT Unknown Provider LAB POCT ORDERABLES- MANUAL Performing Organization Address City/[facility] Co de Phone Number POC [facility] [address] [place] [address], [facility] POC [address] [place] [address] * (ABNORMAL) Glucose, POCT (07/30/2024 12:06 PM CDT) Glucose, POCT, B 259(H) 70 - 140 mg/dL 07/30/2024 12:12 PM CDT PCLX Site Capillary 07/30/2024 12:12 PM CDT PCLX Last Intake 3-4 hours 07/30/2024 12:12 PM CDT PCLX Blood 07/30/2024 12:0 6 PM CDT 07/30/2024 12:12 PM CDT Unknown Provider LAB POCT ORDERABLES- MANUAL Performing Organization Address [facility] de Phone Number POC [facility] [address] [place] [address], [facility] POC [address] [place] [address] * (ABNORMAL) Prothrombin Time (PT) (07/30/2024 8:03 [...] Garduno M.D., Ph.D. LAB BLOOD ADD -ON [facility] [address] [place] [address], [facility] DTL [facility] [address] [place] [address] * (ABNORMAL) Basic Metabolic Panel (07/30/2024 8:03 AM CDT) Pathologist [facility] Potassium, S 4.2 3.6 - 5.2 mmol/L [...] LAB BLOOD ADD -ON Performing Organization Address City/[facility]/ZIP Co de Phone Number [facility] [address] [place] [address], [facility] DTL [facility] [address] [place] [address] * (ABNORMAL) CBC with Differential, Blood (07/30/2024 [...] LAB BLOOD ADD -ON Performing Organization Address City/[facility]/ZIP Co de Phone Number [facility] [address] [place] [address], [facility] DTL [facility] [address] [place] [address] [facility] [address] [place] [address] * Glucose, POCT (07/30/2024 7:45 AM CDT) Glucose, POCT, B 105 70 - 140 mg/dL 07/30/2024 7:47 AM CDT PCLX Site Capillary 07/30/2024 7:47 AM CDT PCLX Last Intake > 4 hours 07/30/2024 7:47 AM CDT PCLX Blood 07/30/2024 7:45 AM CDT 07/30/2024 7:47 AM CDT Unknown Provider LAB POCT ORDERABLES- MANUAL Performing Organization Address City/[facility]/ZIP Co de Phone Number [facility] [address] [place] [address], [place] [facility] POC [address] [place] [address] * (ABNORMAL) Glucose, POCT (07/29/2024 9:32 PM CDT) Glucose, POCT, B 235(H) 70 - 140 mg/dL 07/29/2024 9:35 PM CDT PCLX Site Capillary 07/29/2024 9:35 PM CDT PCLX Last Intake 3-4 hours 07/29/2024 9:35 PM CDT PCLX Blood 07/29/2024 9:32 PM CDT 07/29/2024 9:35 PM CDT Unknown Provider LAB POCT ORDERABLES- MANUAL [facility] [address] [place] [address], [place] [facility] POC [address] [place] [address] * (ABNORMAL) Glucose, POCT (07/29/2024 4:46 PM CDT) Glucose, POCT, B 239(H) 70 - 140 mg/dL 07/29/2024 4:49 PM CDT PCLX Site Capillary 07/29/2024 4:49 PM CDT PCLX Last Intake > 4 hours 07/29/2024 4:49 PM CDT PCLX Blood 07/29/2024 4:46 PM CDT 07/29/2024 4:49 PM CDT Unknown Provider LAB POCT ORDERABLES- MANUAL Performing Organization Address City/[facility] Co de Phone Number POC [facility] [address] [place] [address], [facility] POC [address] [place] [address] * (ABNORMAL) Glucose, POCT (07/29/2024 11:30 AM CDT) Glucose, POCT, B 194(H) 70 - 140 mg/dL 07/29/2024 11:34 AM CDT PCLX Site Capillary 07/29/2024 11:34 AM CDT PCLX Last Intake 2-3 hours 07/29/2024 11:34 AM CDT PCLX Blood 07/29/2024 11:3 0 AM CDT 07/29/2024 11:34 AM CDT Unknown Provider LAB POCT ORDERABLES- MANUAL Performing Organization Address City/[facility]/ZIP Co de Phone Number POC [facility] [address] [place] [address], [place] [facility] POC [address] [place] [address] * Glucose, POCT (07/29/2024 7:39 AM CDT) Glucose, POCT, B 106 70 - 140 mg/dL 07/29/2024 7:44 AM CDT PCLX Blood 07/29/2024 7:39 AM CDT 07/29/2024 7:44 AM CDT Unknown Provider LAB POCT ORDERABLES- MANUAL Performing Organization Address [facility] Co de Phone Number POC [facility] [address] [place] [address], [facility] PCLX [facility] [address] [place] [address] * (ABNORMAL) Prothrombin Time (PT) (07/29/2024 7:38 [...] M.D. LAB BLOOD ADD-ON Performing Organization Address City/[facility]/ZIP Co de Phone Number [facility] [address] [place] [address], [facility] [address] [place] [address] * (ABNORMAL) Basic Metabolic Panel (07/29/2024 7:38 [...] Garduno M.D., Ph.D. LAB BLOOD ADD -ON [facility] [address] [place] [address], [facility] [address] [place] [address] * (ABNORMAL) CBC with Differential, Blood (07/29/2024 [...] Garduno M.D., Ph.D. LAB BLOOD ADD -ON [facility] [address] [place] [address], [facility] [address] [place], [place] [address] [place] [address] 200 [place] [address] * Magnesium (07/29/2024 7:38 AM CDT) [facility] Magnesium, S 2.2 1.7 - 2.3 mg/dL 07/29/2024 9:20 AM CDT DTL Blood (Blood, Venous) 07/29/2024 7:38 AM CDT 07/29/2024 8:54 AM CDT Yasmine Garduno M.D., Ph.D. LAB BLOOD ADD -ON [facility] [address] [place] [address], [facility] DTL [facility] [address] [place] [address] * (ABNORMAL) Hemoglobin A1c (07/29/2024 7:34 AM [...] LAB BLOOD ADD-O N Performing Organization Address City/[facility]/ZIP Co de Phone Number [facility] [address] [place] [address], [facility] DTL [facility] [address] [place] [address] * (ABNORMAL) Glucose, POCT (07/28/2024 8:23 PM CDT) Pathologist [facility] Glucose, POCT, B 271(H) 70 - 140 mg/dL 07/28/2024 8:40 PM CDT PCLX Site Capillary 07/28/2024 8:40 PM CDT PCLX Last Intake 3-4 hours 07/28/2024 8:40 PM CDT PCL[facility] Blood 07/28/2024 8:23 PM CDT 07/28/2024 8:41 PM CDT Unknown Provider LAB POCT ORDERABLES- MANUAL POC [facility] [address] [place] [address], [facility] POC [address] [place] [address] * (ABNORMAL) Glucose, POCT (07/28/2024 5:35 PM CDT) Glucose, POCT, B 187(H) 70 - 140 mg/dL 07/28/2024 5:37 PM CDT PCLX Site Capillary 07/28/2024 5:37 PM CDT PCLX Last Intake > 4 hours 07/28/2024 5:37 PM CDT PCLX Blood 07/28/2024 5:35 PM CDT 07/28/2024 5:38 PM CDT Unknown Provider LAB POCT ORDERABLES- MANUAL Performing Organization Address City/[facility]/ZIP Co de Phone Number POC [facility] [address] [place] [address], [facility] POC [address] [place] [address] * (ABNORMAL) Glucose, POCT (07/28/2024 12:00 PM CDT) Glucose, POCT, B 148(H) 70 - 140 mg/dL 07/28/2024 12:03 PM CDT PCLX Site Capillary 07/28/2024 12:03 PM CDT PCLX Blood 07/28/2024 12:0 0 PM CDT 07/28/2024 12:03 PM CDT Unknown Provider LAB POCT ORDERABLES- MANUAL Performing Organization Address City/[facility] Co de Phone Number POC [facility] [address] [place] [address], [facility] POC [address] [place] [address] * (ABNORMAL) Basic Metabolic Panel (07/28/2024 9:57 [...] Garduno M.D., Ph.D. LAB BLOOD ADD -ON [address] [address], [facility] [place] [address] * (ABNORMAL) CBC with Differential, Blood (07/28/2024 [...] Garduno M.D., Ph.D. LAB BLOOD ADD -ON [facility] [address] [facility] [address] [place] [address] * Magnesium (07/28/2024 9:57 AM CDT) [facility] Magnesium, S 2.1 1.7 - 2.3 mg/dL 07/28/2024 11:17 AM CDT DTL Blood (Blood, Venous) 07/28/2024 9:57 AM CDT 07/28/2024 10:29 AM CDT Yasmine Garduno M.D., Ph.D. LAB BLOOD ADD -ON [facility] [address] D[address] [facility] [address] [place] [address] * (ABNORMAL) Prothrombin Time (PT) (07/28/2024 9:56 [...] CDT Neftaly Gomez M.D. LAB BLOOD ADD-ON [facility] [address] [place] [address], [facility] [address] [place] [address] * (ABNORMAL) Glucose, POCT (07/28/2024 8:52 AM CDT) Pathologist [facility] Glucose, POCT, B 190(H) 70 - 140 mg/dL 07/28/2024 8:54 AM CDT PCLX Site Capillary 07/28/2024 8:54 AM CDT PCLX Last Intake 1-2 hours 07/28/2024 8:54 AM CDT PCLX Blood 07/28/2024 8:52 AM CDT 07/28/2024 8:54 AM CDT Unknown Provider LAB POCT ORDERABLES- MANUAL POC [facility] [address] [place] [address], [facility] PCLX [facility] [address] [place] [address] * Glucose, POCT (07/28/2024 7:57 AM CDT) Pathologist [facility] Glucose, POCT, B 81 70 - 140 mg/dL 07/28/2024 8:04 AM CDT PCLX Site Capillary 07/28/2024 8:04 AM CDT PCLX Blood 07/28/2024 7:57 AM CDT 07/28/2024 8:04 AM CDT Unknown Provider LAB POCT ORDERABLES- MANUAL POC [facility] [address] [place] [address], [facility] PCLX [facility] POC [address] [place] [address] * (ABNORMAL) Basic Metabolic Panel (07/27/2024 11:09 [...] LAB BLOOD ADD -ON Performing Organization Address City/[facility]/ZIP Co de Phone Number [facility] [address] [place] [address], [facility] DTL [facility] [address] [place] [address] * (ABNORMAL) Glucose, POCT (07/27/2024 9:45 PM CDT) [facility] Glucose, POCT, B 207(H) 70 - 140 mg/dL 07/27/2024 9:48 PM CDT PCLX Site Capillary 07/27/2024 9:48 PM CDT PCLX Last Intake > 4 hours 07/27/2024 9:48 PM CDT PCLX Blood 07/27/2024 9:45 PM CDT 07/27/2024 9:48 PM CDT Unknown Provider LAB POCT ORDERABLES- MANUAL Performing Organization Address City/[facility]/ZIP Co de Phone Number [facility] [address] [place] [address], [facility] POC [address] [place] [address] * (ABNORMAL) Glucose, POCT (07/27/2024 4:27 PM CDT) [facility] Glucose, POCT, B 176(H) 70 - 140 mg/dL 07/27/2024 4:32 PM CDT PCLX Site Capillary 07/27/2024 4:32 PM CDT PCLX Blood 07/27/2024 4:27 PM CDT 07/27/2024 4:32 PM CDT Unknown Provider LAB POCT ORDERABLES- MANUAL Performing Organization Address City/[facility]/ZIP Co de Phone Number [facility] [address] [place] [address], [facility] POC [address] [place] [address] * (ABNORMAL) Cystatin C with Estimated GFR (07/27/2024 11:57 AM CDT) [facility] eGFR by Cystatin C 19(L) >60 mL/min/BSA [...] LAB BLOOD ADD -ON Performing Organization Address City/[facility]/ZIP Co de Phone Number [facility] [address] [place] [address], [facility] [address] [place] [address] * (ABNORMAL) Glucose, POCT (07/27/2024 11:13 AM CDT) Pathologist [facility] Glucose, POCT, B 244(H) 70 - 140 mg/dL 07/27/2024 11:18 AM CDT PCLX Site Capillary 07/27/2024 11:18 AM CDT PCLX Blood 07/27/2024 11:1 3 AM CDT 07/27/2024 11:18 AM CDT Unknown Provider LAB POCT ORDERABLES- MANUAL POC [facility] [address] [place] [address], [facility] P[facility] POC [address] [place] [address] * Magnesium (07/27/2024 7:42 AM CDT) Pathologist [facility] Magnesium, S 2.1 1.7 - 2.3 mg/dL 07/27/2024 9:54 AM CDT DTL Blood (Blood, Venous) 07/27/2024 7:42 AM CDT 07/27/2024 8:17 AM CDT Yasmine Garduno M.D., Ph.D. LAB BLOOD ADD -ON [facility] [address] [place] [address], [facility] [address] [place] [address] * (ABNORMAL) Basic Metabolic Panel (07/27/2024 7:42 AM CDT) Pathologist [facility] Potassium, S 4.0 3.6 - 5.2 mmol/L [...] Barbara Jay B.Ch. LAB BLOO D ADD-ON [facility] [address] [place] [address], [facility] DTL [facility] [address] [place] [address] * (ABNORMAL) CBC with Differential, Blood (07/27/2024 [...] LAB BLOO D ADD-ON Performing Organization Address City/[facility]/ZIP Co de Phone Number [facility] [address] [place] [address], [facility] DTL [facility] [address] [place], [place] [address] [place] [address] 200 [place] [address] * Glucose, POCT (07/27/2024 7:41 AM CDT) Glucose, POCT, B 119 70 - 140 mg/dL 07/27/2024 7:49 AM CDT PCLX Site Capillary 07/27/2024 7:49 AM CDT PCLX Last Intake 1-2 hours 07/27/2024 7:49 AM CDT PCLX Blood 07/27/2024 7:41 AM CDT 07/27/2024 7:49 AM CDT Unknown Provider LAB POCT ORDERABLES- MANUAL POC [facility] [address] [place] [address], [facility] P[facility] POC [address] [place] [address] * (ABNORMAL) Prothrombin Time (PT) (07/27/2024 7:41 [...] CDT Neftaly Gomez M.D. LAB BLOOD ADD-ON [facility] [address] [place] [address], [facility] DTL [facility] [address] [place] [address] * Glucose, POCT (07/27/2024 6:54 AM CDT) Glucose, POCT, B 130 70 - 140 mg/dL 07/27/2024 7:13 AM CDT PCLX Blood 07/27/2024 6:54 AM CDT 07/27/2024 7:13 AM CDT Unknown Provider LAB POCT ORDERABLES- MANUAL Performing Organization Address City/[facility] Co de Phone Number POC [facility] [address] [place] [address], [facility] P[facility] POC [address] [place] [address] * ECG 12 Lead (07/27/2024 5:27 AM CDT) Ventricular Rate ECG/Min 66 BPM MUSE NV Interval 136 ms MUSE QRSD Interval 76 ms MUSE QT Interval 358 ms MUSE QTC Interval 375 ms MUSE P [place] 40 degrees MUSE R [place] 63 degrees MUSE T Wave [place] 122 degrees MUSE 07/27/2024 5:27 AM CDT [...] Ph.D. ECG ORDERABLE S Performing Organization Address [facility] Co de Phone Number MUSE NA * (ABNORMAL) Glucose, POCT (07/26/2024 9:07 PM CDT) Glucose, POCT, B 145(H) 70 - 140 mg/dL 07/26/2024 9:09 PM CDT PCLX Last Intake 3-4 hours 07/26/2024 9:09 PM CDT PCLX Blood 07/26/2024 9:07 PM CDT 07/26/2024 9:09 PM CDT Unknown Provider LAB POCT ORDERABLES- MANUAL Performing Organization Address [facility] Co de Phone Number POC [facility] [address] [place] [address], [facility] P[facility] POC [address] [place] [address] * (ABNORMAL) Glucose, POCT (07/26/2024 4:19 PM CDT) Glucose, POCT, B 177(H) 70 - 140 mg/dL 07/26/2024 4:22 PM CDT PCLX Site Capillary 07/26/2024 4:22 PM CDT PCLX Last Intake > 4 hours 07/26/2024 4:22 PM CDT PCLX Blood 07/26/2024 4:19 PM CDT 07/26/2024 4:22 PM CDT Unknown Provider LAB POCT ORDERABLES- MANUAL Performing Organization Address [facility] Co de Phone Number [facility] [address] [place] [address], [facility] POC [address] [place] [address] * (ABNORMAL) Glucose, POCT (07/26/2024 11:06 AM CDT) Glucose, POCT, B 364(H) 70 - 140 mg/dL 07/26/2024 11:08 AM CDT PCLX Last Intake 2-3 hours 07/26/2024 11:08 AM CDT PCLX Blood 07/26/2024 11:0 6 AM CDT 07/26/2024 11:09 AM CDT Unknown Provider LAB POCT ORDERABLES- MANUAL POC [facility] [address] [facility] POC [address] [place] [address] * (ABNORMAL) Troponin T, 5th Generation (07/26/2024 8:27 AM CDT) Pathologist [facility] Troponin T, 5th gen 110(H) <=15 ng/L 07/26/2024 9:08 AM CDT [facility] Comment:Consider acute myoca rdial injury Blood (Blood, Venous) 07/26/2024 8:27 AM CDT 07/26/2024 8:32 AM CDT Neftaly Gomez M.D. LAB BLOOD ADD-ON Performing Organization Address [facility] Co de Phone Number [facility] [address] [facility] [address] [place] [address] * Folate (07/26/2024 7:21 AM CDT) Folate, S 11.6 >=4.0 mcg/L 07/28/2024 8: 00 AM CDT DTL Blood (Blood, Venous) 07/26/2024 7:21 AM CDT 07/26/2024 8:10 AM CDT Yasmine Garduno M.D., Ph.D. LAB BLOOD ADD -ON Performing Organization Address City/[facility]/ZIP Co de Phone Number [facility] [address] D[address] [facility] [address] [place] [address] * (ABNORMAL) Vitamin B12 Assay (07/26/2024 7:21 AM CDT) Pathologist [facility] Vitamin B12 Assay, S 1206(H) 180 [...] LAB BLOOD ADD -ON Performing Organization Address City/[facility]/ZIP Co de Phone Number [facility] [address] [place], [place] [address] [address] [place] [address] * Reticulocytes (07/26/2024 7:21 AM CDT) [facility] Reticulocytes, B 1.46 0.60 - 2.71 % 07/26/2024 8:09 AM CDT DTL Absolute Reticulocyte 62.8 30.4 - 110.9 x10(9)/L 07/26/2024 8:09 AM CDT DTL Blood (Blood, Venous) 07/26/2024 7:21 AM CDT 07/26/2024 7:55 AM CDT Yasmine Garduno M.D., Ph.D. LAB BLOOD ADD -ON [facility] [address] [place], [place] [address] [place] [address] [facility] [address] [place] [address] * (ABNORMAL) Haptoglobin (07/26/2024 7:21 AM CDT) Haptoglobin, S <14(L) 30 - 200 mg/dL 07/29/2024 8:13 AM CDT [facility] Blood (Blood, Venous) 07/26/2024 7:21 AM CDT 07/28/2024 6:34 AM CDT Yasmine Garduno M.D., Ph.D. LAB BLOOD ADD -ON [facility] [address] [place] [address] [facility] [address] [place] [address] * Fibrinogen (07/26/2024 7:21 AM CDT) Fibrinogen, P 385 200 - 393 mg/dL 07/26/2024 8:23 AM CDT DT Blood (Blood, Venous) 07/26/2024 7:21 AM CDT 07/26/2024 7:56 AM CDT Yasmine Garduno M.D., Ph.D. LAB BLOOD ADD -ON [facility] [address] [place] [address], [facility] DTL [facility] [address] [place] [address] * Ferritin (07/26/2024 7:21 AM CDT) Ferritin, S 179 31 - 409 mcg/L 07/26/2024 8:46 AM CDT DT Blood (Blood, Venous) 07/26/2024 7:21 AM CDT 07/26/2024 8:10 AM CDT Yasmine Garduno M.D., Ph.D. LAB BLOOD ADD -ON [facility] [address] [place] [address], [facility] 200 [place] [address] * Iron and Total Iron-Binding Capacity (07/26/2024 7:21 AM CDT) Pathologist [facility] Iron 53 50 - 150 mcg/dL 07/26/2024 8:46 AM CDT DTL Total Iron Binding Capacity 270 250 - 400 mcg/dL 07/26/2024 8:46 AM CDT DTL Percent Saturation 20 14 - 50 % 07/26/2024 8:46 AM CDT DTL Blood (Blood, Venous) 07/26/2024 7:21 AM CDT 07/26/2024 8:10 AM CDT Yasmine Garduno M.D., Ph.D. LAB BLOOD ADD -ON [facility] [address] [place] [address], [facility] 200 [place] [address] * (ABNORMAL) Morphology Eval (special smear) (07/26/2024 7:21 AM CDT) [facility] Neutrophilic Segs and Bands 85(H) 50 - [...] LAB BLOOD ADD -ON Performing Organization Address City/[facility]/ZIP Co de Phone Number [facility] [address] [place] [address], [facility] [address] [place] [address] * (ABNORMAL) Basic Metabolic Panel (07/26/2024 7:21 AM CDT) [facility] Potassium, S 4.1 3.6 - 5.2 mmol/L [...] CDT Neftaly Gomez M.D. LAB BLOOD ADD-ON [facility] [address] [place] [address], [facility] [address] [place] [address] * (ABNORMAL) CBC with Differential, Blood (07/26/2024 7:21 AM CDT) [facility] Hemoglobin 12.3(L) 13.2 - 16.6 g/dL 07/26/2024 [...] CDT Neftaly Gomez M.D. LAB BLOOD ADD-ON [facility] 200 [place], [place] [address] 200 [place], [place] [address] [place] [address] 200 [place] [address] * (ABNORMAL) Prothrombin Time (PT) (07/26/2024 7:21 AM CDT) Pathologist [facility] Prothrombin Time, P 30.2(H) 9.4 - 12.5 sec 07/26/2024 8:23 AM CDT DT INR 2.7 0.9 - 1.1 07/26/2024 8:23 AM CDT DT Comment: ----ADDITIONAL INFORMATION---- Standard intensity warfarin therapeutic range: 2.0 to 3.0 ?? High intensity warfarin therapeutic range: 2.5 to 3.5 Blood (Blood, Venous) 07/26/2024 7:21 AM CDT 07/26/2024 7:54 AM CDT Neftaly Gomez M.D. LAB BLOOD ADD-ON Performing Organization Address [facility] Co de Phone Number [facility] [address] [place], [place] [address] 200 [place] [address] * (ABNORMAL) Glucose, POCT (07/26/2024 7:20 AM CDT) Pathologist [facility] Glucose, POCT, B 163(H) 70 - 140 mg/dL 07/26/2024 7:22 AM CDT PCLX Site Capillary 07/26/2024 7:22 AM CDT PCLX Last Intake 2-3 hours 07/26/2024 7:22 AM CDT PCLX Blood 07/26/2024 7:20 AM CDT 07/26/2024 7:22 AM CDT Unknown Provider LAB POCT ORDERABLES- MANUAL POC [facility] [address] [place], [place] [address] [place] [address] [facility]X [facility] POC [address] [place] [address] * Glucose, POCT (07/25/2024 8:34 PM CDT) Pathologist [facility] Glucose, POCT, B 121 70 - 140 mg/dL 07/25/2024 8:37 PM CDT PCLX Last Intake 2-3 hours 07/25/2024 8:37 PM CDT PCLX Blood 07/25/2024 8:34 PM CDT 07/25/2024 8:37 PM CDT Unknown Provider LAB POCT ORDERABLES- MANUAL Performing Organization Address City/[facility]/ZIP Co de Phone Number [facility] [address] [place] [address], [facility] POC [address] [place] [address] * (ABNORMAL) Troponin T, 6h, 5th Gen (07/25/2024 7:26 PM CDT) [facility] Troponin T, 6 hr, 5th gen [...] LAB BLOO D TROPONIN Performing Organization Address City/[facility]/ZIP Co de Phone Number [facility] [address] [place] [address], [facility] STMA [facility] [address] [place] [address] * (ABNORMAL) Glucose, POCT (07/25/2024 4:25 PM CDT) Pathologist [facility] Glucose, POCT, B 174(H) 70 - 140 mg/dL 07/25/2024 4:30 PM CDT PCLX Site Capillary 07/25/2024 4:30 PM CDT PCLX Blood 07/25/2024 4:25 PM CDT 07/25/2024 4:30 PM CDT Unknown Provider LAB POCT ORDERABLES- MANUAL Performing Organization Address City/[facility] Co de Phone Number POC [facility] [address] [place] [address], [facility] POC [address] [place] [address] * (ABNORMAL) Troponin T, 2 Hour with 6 Hour Reflex, 5th Gen (07/25/2024 3:42 PM CDT) [facility] Troponin T, 2 hr, 5th gen 131(H) <=15 ng/L 07/25/2024 4:11 PM CDT [facility] Comment:Consider acute myoca rdial injury 2H Delta % 9 % 07/25/2024 4:11 PM CDT [facility] Comment:6 hour collection pe nding. 2H Delta Interp Not Changing 07/25/2024 4:11 PM CDT [facility] Blood 07/25/2024 3:42 PM CDT 07/25/2024 3:47 PM CDT Barbara Jay, B.Ch. LAB BLOO D TROPONIN Performing Organization Address City/[facility] Co de Phone Number [facility] [address] [place] [address], [facility] STMA [facility] [address] [place] [address] * (TTE) 2D ECHO DOPPLER COLOR (07/25/2024 3:24 PM CDT) [facility] Ejection Fraction 65 MC CV EIMS [...] CABG x1, PVI, and DAHIANA amputation (19-SEP-2023, [place]). 3. Small left ventricular chamber size. Abnormal [...] CABG x1, PVI, and DAHIANA amputation (19-SEP-2023, [place]). Echocardiogram performed per left ventricular function protocol [...] prosthesis, CABG x1,PVI, and DAHIANA amputation (19-SEP-2023, [place]). 3. Small left ventricular chamber size. Abnormal [...] prosthesis, CABG x1, PVI,and DAHIANA amputation (19-SEP-2023, [place]). Echocardiogram performed per leftventricular function protocol + [...] Prothrombin Time (PT) (07/25/2024 2:04 PM CDT) [facility] Prothrombin Time, P 31.9(H) 9.4 - 12.5 sec 07/25/2024 2:39 PM CDT [facility] INR 2.9 0.9 - 1.1 07/25/2024 2:39 PM CDT [facility] Comment: ----ADDITIONAL INFORMATION---- Standard intensity warfarin therapeutic range: 2.0 to 3.0 ?? High intensity warfarin therapeutic range: 2.5 to 3.5 Blood (Blood, Venous) 07/25/2024 2:04 PM CDT 07/25/2024 2:20 PM CDT Yasmine Garduno M.D., Ph.D. LAB BLOOD ADD -ON Performing Organization Address City/[facility]/ZIP Co de Phone Number [facility] [address] [place] [address] * (ABNORMAL) CRP (C-Reactive Protein) (07/25/2024 1:50 PM CDT) [facility] C-Reactive Protein (CRP), S 6.1(H) <5.0 mg/L 07/25/2024 3:06 PM CDT DTL Blood (Blood, Venous) 07/25/2024 1:50 PM CDT 07/25/2024 2:44 PM CDT Neftaly Gomez M.D. LAB BLOOD ADD-ON Performing Organization Address City/[facility]/ZIP Co de Phone Number [facility] 200 [place] [address] * (ABNORMAL) Troponin T, Baseline with 2 Hour/6 Hour Reflex Biomarker Panel (07/25/2024 1:50 PM CDT) [facility] Troponin T, Baseline, 5th gen 120(H) <=15 ng/L 07/25/2024 2:22 PM CDT [facility] Comment:Consider acute myoca rdial injury Blood (Blood, Venous) 07/25/2024 1:50 PM CDT 07/25/2024 2:05 PM CDT Neftaly Gomez M.D. LAB BLOOD TROPONIN Performing Organization Address [facility]/ZIP Co de Phone Number [facility] [address] STMA [facility] [address] [place] [address] * Sedimentation Rate (07/25/2024 1:49 PM CDT) Pathologist [facility] Sedimentation Rate, B 13 3 - 28 mm/h 07/25/2024 4:17 PM CDT DTL Blood (Blood, Venous) 07/25/2024 1:49 PM CDT 07/25/2024 2:36 PM CDT Neftaly Gomez M.D. LAB BLOOD ADD-ON Performing Organization Address [facility] Co de Phone Number [facility] [address] [place] [address], [facility] DTL [facility] [address] [place] [address] * ECG 12 Lead (07/25/2024 1:34 PM CDT) Ventricular Rate ECG/Min 74 BPM MUSE NV Interval 144 ms MUSE QRSD Interval 70 ms MUSE QT Interval 340 ms MUSE QTC Interval 377 ms MUSE P [place] 51 degrees MUSE R [place] 64 degrees MUSE T Wave [place] 264 degrees MUSE 07/25/2024 1:34 PM CDT [...] LAB BLOOD AD D-ON Performing Organization Address City/[facility]/ZIP Co de Phone Number [facility] [address] [place] [address], [facility] DTL [facility] 200 [place] [address] * (ABNORMAL) Basic Metabolic Panel (07/24/2024 11:51 [...] LAB BLOOD AD D-ON Performing Organization Address City/[facility]/ZIP Co de Phone Number [facility] [address] [place] [address], [facility] DTL [facility] [address] [place] [address] * (ABNORMAL) Troponin T, 6h, 5th Gen [...] M.S. LAB BLOOD TROPONIN Performing Organization Address City/[facility]/ZIP Co de Phone Number [facility] [address] [place] [address], [facility] [address] [place] [address] * (ABNORMAL) Troponin T, 2 Hour with [...] Quin Smith P.A.-C., M.S. LAB BLOOD TROPONIN [facility] [address] [place] [address], [facility] STMA [facility] [address] [place] [address] * DX Chest AP or PA and [...] of the spine. Fanny Goodwin M.D., M.S. [facility]AGING PROCEDURES * (ABNORMAL) Prothrombin [...] LAB BLOOD AD D-ON Performing Organization Address City/[facility]/ZIP Co de Phone Number [facility] [address] 200 [place] [address] * (ABNORMAL) Troponin T, Baseline with 2 Hour/6 Hour Reflex Biomarker Panel (07/24/2024 5:20 PM CDT) Troponin T, Baseline, 5th gen 109(H) <=15 ng/L 07/24/2024 5:55 PM CDT [facility] Comment:Consider acute myoca rdial injury Blood (Blood, Venous) 07/24/2024 5:20 PM CDT 07/24/2024 5:30 PM CDT Fanny Goodwin M.D., MJarrettS. LAB BLOOD TR OPONIN Performing Organization Address [facility] Co de Phone Number [facility] [address] [place] [address], [address] [address] * (ABNORMAL) NT-Pro B-Type Natriuretic Peptide (BNP) [...] Goodwin M.D., M.S. LAB BLOOD AD D-ON [facility] [address] [place] [address], [facility] [address] [place] [address] * (ABNORMAL) CBC with Differential, Blood (07/24/2024 [...] Goodwin M.D., M.S. LAB BLOOD AD D-ON [facility] [address] [place] [address], [facility] STMA [facility] [address] [place] [address] [facility] [address] [place] [address] * (ABNORMAL) Basic Metabolic Panel (07/24/2024 5:20 PM CDT) [facility] Potassium, P 4.1 3.6 - 5.2 mmol/L [...] LAB BLOOD AD D-ON Performing Organization Address [facility] Co de Phone Number [facility] [address] [place] [address], [facility] STMA [facility] [address] [place] [address] * ECG 12 Lead (07/24/2024 5:08 PM CDT) Ventricular Rate ECG/Min 73 BPM MUSE NV Interval 136 ms MUSE QRSD Interval 76 ms MUSE QT Interval 414 ms MUSE QTC Interval 456 ms MUSE P [place] 44 degrees MUSE R [place] 50 degrees MUSE T Wave [place] 87 degrees MUSE 07/24/2024 5:08 PM CDT [...] M.S. ECG ORDERABL ES Performing Organization Address [facility] Co de Phone Number MUSE NA documented [...] 1955 (Given - Provider: Terra Welch R.N., [facility]) colchicine tablet 0.6 mg (Colcrys) 0.6 mg, [...] carbohydrates): 10 0952 (Given - Provider: Shameka Tanenr R.N.)1309 (Given - Provider: Kelsie Saez R.N.)1809 (Given - Provider: Alexandra Jackson R.N.) 0841 (Given - Provider: Kelsie Saez R.N.)1245 (Given - Provider: Kelsie Seaz R.N.)1821 (Given - Provider: Kelsie Saez R.N.) [...] (Not Given - Provider: Terra Welch R.N., [facility] - Reason: Order parameters not met)1244 (Given - Provider: Kelsie Saez R.N.)1731 (Not Given - Provider: Kelsie Saez R.N. - Reason: Order parameters not met - Comment: 110) 0643 (Given - Provider: Terra Welch R.N., [facility])1243 (Given - Provider: Sally Shafer R.N.) insulin [...] 2210 (Given - Provider: Terra Welch R.N., [facility]) insulin NPH injection 10 Units (CANCELED) 10 [...] 0609 (Given - [facility]: [facility] 0643 (Given - Provider: Terra Welch R.N., [facility]) polyethylene glycol powder packet 17 g (Miralax) [...] refused)1957 (Given - Provider: [facility] 0859 (Not Given - Provider: Sally [...] 07/24/24 at 2100 0804 (Given - Provider: Shameka Tanner R.N.)1317 (Given - Provider: Kelsie Saez [...] 1957 (Given - Provider: [facility]) sodium chloride 0.9 % injection 3 [...] R.N.)1957 (Given - Provider: [facility] 0903 (Given - Provider: Sally Shafer [...] 1957 (Given - Provider: Terra Welch R.N., [facility]) torsemide tablet 40 mg (Demadex) 40 mg, [...] documented as of this encounter Care Teams It Security Consulting Director Relationship Specialty Start Date End Date Elsewhere, Pcp PCP - General Internal Medicine 07/28/24 documented as of this encounter
--- OUTSIDE RECORDS SUMMARY | 2024-08-22 15:45 | XMS_ITS | Encounter Summary ---
Author Organization [facility] Address [address] [place] [address] Care Team Providers Care Bike Shop Manager Name Role Phone Kylah Crum M.D. Primary Care Provider [phone] Reason for Visit * Appointment Request (Routine) - Closed Specialty Diagnoses / Procedures Referred By Sebas t Referred To Contact Nephrology and Hypertension Referral ID Status Reason Start Date Expiration Date Visits Re quested Visits Authorized [id number] Closed 04/25/2024 04/25/2025 1 1 Encounter Details Date Type Department Care Team (Latest Contact Info) Description 06/11/2024 1:30 PM CDT External Outreach Division of Nephrology and Hypertension in [place], [place] [address] [place] [address] Atif Nance Jr., D.O. [address] [place] [address] Hypertensive Heart And Chronic Kidney Disease Without [...] Kylah Crum M.D. SUBJECTIVE REASON FOR VISIT [place] out reach [facility] Follow-up regards CKD [...] in Nephrology in 3 months here in [place] 6. Towards the above goals, we will [...] having his sugars monitored measured here in [place] and I will be available for further [...] (Latest Contact Info) Description 09/29/2024 1:00 PM SENIOR CONSULTING MANAGER Clinical Communication Virtual Review in [place], [place] 200 [place] [address] 10/02/2024 10:00 AM SENIOR CONSULTING MANAGER Ancillary Procedure Department of Cardiovascular Medicine in [address] [phone] Deven Clement M.D., M.S. [address] [place] [phone] 10/02/2024 10:45 AM SENIOR CONSULTING MANAGER Appointment Department of Radiology, [facility], in [place], [place] [address] [place] [address] Deven Clement M.D., M.S. [address] [place] [phone] 10/02/2024 11:20 AM SENIOR CONSULTING MANAGER Appointment Department of Laboratory Medicine and Pathology, [facility] in [place], [place] [address] [place] [phone] Deven Clement M.D., M.S. [address] [place] [phone] 10/02/2024 12:45 PM SENIOR CONSULTING MANAGER Appointment Department of Radiology, [facility] in [place], [place] [address] [place] [address] Deven Clement M.D., M.S. [address] [place] [phone] 10/02/2024 2:00 PM SENIOR CONSULTING MANAGER Comprehensive Visit Department of Cardiovascular Medicine in [place], [place] [address] [place] [phone] Keagan Tellez M.D. [address] [place] [phone] documented as of this encounter Visit Diagnoses [...] documented as of this encounter Care Teams Bike Shop Manager Relationship Specialty Start Date End Date Kylah Crum M.D. [address] [place] [phone] PCP - General Family Medicine 09/28/23 07/24/24 documented as of this encounter
--- OUTSIDE RECORDS SUMMARY | 2024-08-22 15:45 | XMS_ITS | Encounter Summary ---
Author Organization [facility] Address [address] [place] [address] Care Team Providers Care Pedigree Tracer Name Role Phone Elsewhere, Pcp Primary Care [...] IV Contrast Deven Clement M.D., M.S. [address] [place] [phone] [facility] Referral ID Status Reason Start Date Expiration Date V isits Requested Visits Authorized [id number] Pending Review 07/30/2024 07/30/2025 1 1 * [...] Pericardial Disease (HCC) Procedures Echo Transthoracic (TTE) Deevn Clement M.D., M.S. 200 [place] [address] [facility] Referral ID Status Reason Start Date Expiration Date V isits Requested Visits Authorized [id number] Authorized 07/30/2024 07/30/2025 1 1 * Outpatient [...] 12 Lead Deven Clement M.D., M.S. [address] [place] [phone] [facility] Referral ID Status Reason Start Date Expiration Date V isits Requested Visits Authorized [id number] Authorized 07/30/2024 07/30/2025 1 1 * Outpatient [...] 2 Views Deven Clement M.D., M.S. [address] [place] [phone] [facility] Referral ID Status Reason Start Date Expiration Date V isits Requested Visits Authorized [id number] Authorized 07/30/2024 07/30/2025 1 1 * Outpatient [...] (HCC) Deven Clement M.D., M.S. [address] [place] [address] [facility] Referral ID Status Reason Start Date Expiration Date V isits Requested Visits Authorized [id number] Authorized 07/30/2024 01/29/2026 1 1 Encounter Details Date Type Department Care Team (Late st Contact Info) Description 07/30/2024 Clinical Communication [facility] [address] [place] [phone] Barbara Valencia M.B., B.Ch. [address] [place] [phone] Social History Tobacco Use Types Packs/Day Years Used Date Smoking Tobacco: Never Smokeless Tobacco: Never Comments:Smoked recreational ly over 40 years ago - a few cigarettes once in a while. Alcohol Use Standard Drinks/Week Comments Never 0 (1 standard drink = 0.6 oz pur e alcohol) [facility] Utilities Answer Date Recorded In the past 12 months has e [employer], gas, oil, or water [employer] threatened to shut off services in your [...] living situation today? I have a [facility] place to live 07/25/2024 Sex and Gender Information Value Date Recorded Sex Assigned at Male 08/29/2023 11:06 AM CDT Gender Identity Male 08/29/2023 11:06 AM CDT Sexual Orientation Straight 08/29/2023 11 :06 AM CDT documented as of this encounter Plan of Treatment Upcoming Encounters Date Type Department Care Team (Latest Contact Info) Description 09/29/2024 1:00 PM BRONZER Clinical Communication Virtual Review in [place], [place] [address] [place] [address] 10/02/2024 10:00 AM BRONZER Ancillary Procedure Department of Cardiovascular Medicine in [place], [place] [address] [place] [address] Deven Clement M.D., M.S. [address] [place] [phone] 10/02/2024 10:45 AM BRONZER Appointment Department of Radiology, [facility] in [place], [place] [address] [place] [address] Deven Clement M.D., M.S. [address] [place] [phone] 10/02/2024 11:20 AM BRONZER Appointment Department of Laboratory Medicine [facility] in [place], [place] [address] [place] [phone] Deven Clement M.D., M.S. [address] [place] [phone] 10/02/2024 12:45 PM BRONZER Appointment Department of Radiology, [facility] in [place], [place] [address] [place] [address] Deven Clement M.D., M.S. [address] [place] [phone] 10/02/2024 2:00 PM BRONZER Comprehensive Visit Department of Cardiovascular Medicine in [place], [place] [address] [place] [phone] Keagan Tellez M.D. [address] [place] [phone] Scheduled Orders Name Type Priority Associated Diagnoses [...] (HCC) Expected: 08/29/2024, Expires: 10/29/2025 Thyroid Function [facility] Routine Hypertensive Heart And Chronic Kidney [...] documented as of this encounter Care Teams Pedigree Tracer Relationship Specialty Start Date End Date Elsewhere, Pcp PCP - General Internal Medicine 07/28/24 documented as of this encounter
--- OUTSIDE RECORDS SUMMARY | 2024-08-22 15:45 | XMS_ITS | Encounter Summary ---
Author Organization [facility] Address [address] [place] [address] Care Team Providers Care Javascript Developer Name Role Phone Elsewhere, Pcp Primary Care [...] e alcohol) [facility] Utilities Answer Date Recorded In the past [...] a [facility] to live 07/25/2024 Sex and Gender Information Value Date Recorded Sex Assigned at Male 08/29/2023 11:06 AM CDT Gender Identity Male 08/29/2023 11:06 AM CDT Sexual Orientation Straight 08/29/2023 11 :06 AM CDT documented as of this encounter Plan of Treatment Upcoming Encounters Date Type Department Care Team (Latest Contact Info) Description 09/29/2024 1:00 PM NUCLEAR RADIATION ENGINEER Clinical Communication Virtual Review in [address] [phone] 10/02/2024 10:00 AM NUCLEAR RADIATION ENGINEER Ancillary Procedure Department of Cardiovascular Medicine in [place], [place] [address] [place] [address] Deven Clement M.D., M.S. [address] [place] [phone] 10/02/2024 10:45 AM NUCLEAR RADIATION ENGINEER Appointment Department of Radiology, [facility] in [place], [place] [address] [place] [address] Deven Clement M.D., M.S. [address] [place] [phone] 10/02/2024 11:20 AM NUCLEAR RADIATION ENGINEER Appointment Department of Laboratory Medicine and Pathology, [facility] in [place], [place] [address] [place] [phone] Deven Clement M.D., M.S. [address] [place] [phone] 10/02/2024 12:45 PM NUCLEAR RADIATION ENGINEER Appointment Department of Radiology, [facility] in [place], [place] [address] [place] [address] Deven Clement M.D., M.S. [address] [place] [phone] 10/02/2024 2:00 PM NUCLEAR RADIATION ENGINEER Comprehensive Visit Department of Cardiovascular Medicine in [address] [phone] Keagan Tellez M.D. [address] [place] [phone] documented as of this encounter Procedures Procedure [...] documented as of this encounter Care Teams Javascript Developer Relationship Specialty Start Date End Date Elsewhere, Pcp PCP - General Internal Medicine 07/28/24 documented as of this encounter
--- OUTSIDE RECORDS SUMMARY | 2024-08-22 15:45 | XMS_ITS | Encounter Summary ---
Author Organization [facility] Address [address] [place] [address] Care Team Providers Care Dry Yard Worker Name Role Phone Elsewhere, Pcp Primary [...] have a [facility] place to live 07/25/2024 Sex and Gender Information Value Date Recorded Sex Assigned at Male 08/29/2023 11:06 AM CDT Gender Identity Male 08/29/2023 11:06 AM CDT Sexual Orientation Straight 08/29/2023 11 :06 AM CDT documented as of this encounter Plan of Treatment Upcoming Encounters Date Type Department Care Team (Latest Contact Info) Description 09/29/2024 1:00 PM ELEVATOR CONSTRUCTOR HELPER Clinical Communication Virtual Review in [address] [phone] 10/02/2024 10:00 AM ELEVATOR CONSTRUCTOR HELPER Ancillary Procedure Department of Cardiovascular Medicine in [place], [place] [address] [place] [address] Deven Clement M.D., M.S. [address] [place] [phone] 10/02/2024 10:45 AM ELEVATOR CONSTRUCTOR HELPER Appointment Department of Radiology, [facility] in [place], [place] [address] [place] [address] Deven Clement M.D., M.S. [address] [place] [phone] 10/02/2024 11:20 AM ELEVATOR CONSTRUCTOR HELPER Appointment Department of Laboratory Medicine and Pathology, [facility] in [place], [place] [address] [place] [phone] Deven Clement M.D., M.S. [address] [place] [phone] 10/02/2024 12:45 PM ELEVATOR CONSTRUCTOR HELPER Appointment Department of Radiology, [facility] in [place], [place] [address] [place] [address] Deven Clement M.D., M.S. [address] [place] [phone] 10/02/2024 2:00 PM ELEVATOR CONSTRUCTOR HELPER Comprehensive Visit Department of Cardiovascular Medicine in [address] [phone] Keagan Tellez M.D. [address] [place] [phone] documented as of this encounter Procedures Procedure [...] as of this encounter Care Teams Dry Yard Worker Relationship Specialty Start Date End Date Elsewhere, Pcp PCP - General Internal Medicine 07/28/24 documented as of this encounter
--- OUTSIDE RECORDS SUMMARY | 2024-08-22 15:45 | XMS_ITS | Clinical Summary ---
Author Organization [facility] Address [address] Care Team Providers Care Research Tech Name Role Phone Kylah Crum St[facility]ymodesta [facility] Primary Care Provider Medications No known medications Social History Tobacco Use Types Packs/Day Years Used Date Smoking Tobacco: Never Assessed Sex and Gender Information Value Date Recorded Sex Assigned at Not on file Gender Identity Not on file Sexual Orientation Not on file Obstetrics History Last Filed Vital Signs Vital Sign Reading Time Taken Comments Blood Pressure 107/69 10/03/2023 4:23 PM NEUROPSYCHOLOGY DIVISION CHIEF Pulse 84 10/03/2023 4:23 PM NEUROPSYCHOLOGY DIVISION CHIEF Temperature 36.8 ??C (98.2 ??F) 10/03/2023 3:16 PM CS T Respiratory Rate 20 10/03/2023 3:16 PM NEUROPSYCHOLOGY DIVISION CHIEF Oxygen Saturation 98% 10/03/2023 4:23 PM NEUROPSYCHOLOGY DIVISION CHIEF Inhaled Oxygen Concentration - - Weight 90.7 kg (200 lb) 10/03/2023 3:08 PM NEUROPSYCHOLOGY DIVISION CHIEF Height 172.7 cm (5' 8) 10/03/2023 3:08 PM NEUROPSYCHOLOGY DIVISION CHIEF Body Mass Index 30.41 10/03/2023 3:08 PM NEUROPSYCHOLOGY DIVISION CHIEF Plan of Treatment Health Maintenance Due Date [...] PCV) 017 COVID-19 vaccine series ( - 2023- season) 4 Influenza for age 65+ 07/13/2024 Care Teams Research Tech Relationship Specialty Start Date End Date Kylah Crum MBBS [address] [place] [phone] PCP - General Family Practice 10/03/23
--- OUTSIDE RECORDS SUMMARY | 2024-08-22 15:45 | XMS_ITS | Encounter Summary ---
Author Organization [facility] Address [address] [place] [address] Care Team Providers Care Care Coordination Manager Name Role Phone Kylah Crum M.D. Primary Care Provider [phone] Reason for Visit * Reason Onset Date Comments Appt Request 04/17/2024 Encounter Details Date Type Department Care Team (Latest Contact Info) Description 04/17/2024 Clinical Communication Division of Nephrology and Hypertension in [place], [place] [address] [place] [address] Mare Arauz M.D., Ph.D. [address] [place] [phone] Appt Request Social History Tobacco Use Types [...] (Latest Contact Info) Description 09/29/2024 1:00 PM OUTSOLE TACKER Clinical Communication Virtual Review in [place], [place] 200 [place] [address] 10/02/2024 10:00 AM OUTSOLE TACKER Ancillary Procedure Department of Cardiovascular Medicine in [place], [place] [address] [place] [phone] Deven Clement M.D., M.S. [address] [place] [phone] 10/02/2024 10:45 AM OUTSOLE TACKER Appointment Department of Radiology, [facility] in [place], [place] [address] [place] [address] Deven Clement M.D., M.S. [address] [place] [phone] 10/02/2024 11:20 AM OUTSOLE TACKER Appointment Department of Laboratory Medicine and Pathology, [facility] in [place], [place] [address] [place] [address] Deven Clement M.D., M.S. [address] [place] [phone] 10/02/2024 12:45 PM OUTSOLE TACKER Appointment Department of Radiology, [facility] in [place], [place] [address] [place] [address] Deven Clement M.D., M.S. [address] [place] [phone] 10/02/2024 2:00 PM OUTSOLE TACKER Comprehensive Visit Department of Cardiovascular Medicine in [place], [place] [address] [place] [phone] Keagan Tellez M.D. [address] [place] [phone] documented as of this encounter Visit Diagnoses Not on filedocumented in this encounter Additional Health Concerns Assessment Noted Time PHQ-9 Depression Total Score: 1 09/10/20 23 2:06 PM CDT documented as of this encounter Care Teams Care Coordination Manager Relationship Specialty Start Date End Date Kylah Crum M.D. [address] [place] [address] [place] [phone] PCP - General Family Medicine 09/28/23 07/24/24 documented as of this encounter
== END 2024-08-22 15:41 | disposition home or self-care (01) ==
LOC: NFLDUCREF 15:41
PROVIDERS: PCP Internal Medicine; Visit Provider Nurse Practitioner Family
DX: L03.116 Cellulitis of left lower limb (principal); B96.5 Pseudomonas (aeruginosa) (mallei) (pseudomallei) as the cause of diseases classified elsewhere
CPT/HCPCS: 87070; 87186

== ENCOUNTER 2024-09-02 13:07 | Emergency (ER) | payer MEDICARE, SELFPAY ==
[2024-09-02] VITALS (48 sets, daily range): BP systolic 75–132; BP diastolic 44–78; PULSE 83–93; RESP 18–20; TEMP 36.8–37.7; O2SAT 84–98; BMI 26.3
--- NOTE | 2024-09-02 13:50 | CRLHL7_ITS ---
For Patients: As a result of the Century Cures Act, medical imaging exams and procedure reports are released immediately into your electronic medical record. You may view this report before your referring provider. If you have questions, please contact your health care provider. INDICATION: Leg pain and swelling. TECHNIQUE: Ultrasound venous duplex bilateral lower extremity. Compression venous exam was performed using leal-scale, color Doppler, and spectral Doppler analysis. COMPARISON: None. FINDINGS: Deep veins: Sonographic imaging demonstrates the bilateral common femoral, deep femoral, superficial femoral, popliteal, posterior tibial veins to be fully compressible with normal color Doppler blood flow. Superficial veins: Right greater saphenous vein is patent. Postsurgical changes involving the left greater saphenous vein. Extensive edema in the right leg [id number]. No popliteal cyst. IMPRESSION: No DVT in the bilateral lower extremities. Dictated by Palomo Choi MD @ 09/02/2024 3:10:12 PM (Electronically Signed)
--- NOTE | 2024-09-02 14:02 | ED_ITS ---
HPI - General Adult General Chief complaint: Lower Extremity Swelling Stated complaint: edema on legs/weeping Time Seen by Provider: 09/02/24 13:26 Source: patient Mode of arrival: ambulatory Limitations: no limitations History of Present Illness HPI narrative: Patient is a 74-year-old male presenting to the emergency department for weakness, lower extremity blisters, leg pain. Has a history of tear duct she sees a specialist for. Next appointment is in September. Currently on cefadroxil for cellulitis. He is here with family. Patient was recently at the [facility] for a CHF exacerbation and cellulitis and they were able to discharge him a couple days ago on antibiotic. He was doing well up until starting feel fatigued today. He has been having some chills and has been having lower extremity pain. Has taken Tylenol with no improvement in the pain. Does state his blood cultures came back negative at the [facility]. Still having lower extremity swelling and while he was there he also had large blisters on both lower extremities near the ankles. He has been dealing these blisters intermittently for the past 6 months and they typically go away and around then reappeared. Currently he is just doing wound management. Denies headache, chest pain, shortness of breath, numbness, vision changes, headache, abdominal pain, lightheadedness, dizziness, diarrhea, constipation. No other concerns noted at this time. Related Data Home Medications ?Medication ?Instructions ?Recorded ?Confirmed aspirin 81 mg chewable tablet 81 mg PO DAILY 10/18/23 09/02/24 atorvastatin 80 mg tablet 80 mg PO DAILY 10/18/23 09/02/24 cholecalciferol (vitamin D3) 2,000 unit PO DAILY 10/18/23 09/02/24 mecobalamin (vitamin B12) PO DAILY 10/18/23 08/22/24 colchicine 0.6 mg tablet 0.6 mg PO QDAY 08/04/24 09/02/24 insulin NPH isoph U-100 human 100 25 unit subcut BID 08/04/24 09/02/24 unit/mL (3 mL) subcutaneous pen (Novolin N FlexPen) prednisone 20 mg tablet 20 mg PO QDAY 08/04/24 09/02/24 sulfamethoxazole 800 1 tab PO QDAY 08/04/24 09/02/24 mg-trimethoprim 160 mg tablet (Bactrim DS) alcohol swabs (Alcohol Prep Pads) 1 pad topical 3XD 09/02/24 09/02/24 blood glucose control high and low 09/02/24 09/02/24 solution (Accu-Chek Guide L1-L2 Control Solution) blood sugar diagnostic (Accu-Chek 09/02/24 09/02/24 Guide test strips) blood-glucose meter (Accu-Chek 09/02/24 09/02/24 Guide Glucose Meter) cefadroxil 500 mg capsule 500 mg PO DAILY 09/02/24 09/02/24 Previous Rx's ?Medication ?Instructions ?Recorded metoprolol succinate 50 mg 50 mg PO DAILY #90 tabs 03/06/24 tablet,extended release 24 hr torsemide 20 mg tablet 40 mg (2 x 20 mg) PO QDAY #28 tabs 04/18/24 glipizide 5 mg tablet 5 mg PO QDAY #90 tabs 05/22/24 warfarin 1 mg tablet 1 mg PO QHS #240 tabs 05/30/24 finasteride 5 mg tablet 5 mg PO DAILY #90 tabs 08/05/24 tamsulosin 0.4 mg capsule 0.4 mg PO DAILY #90 caps 08/05/24 pantoprazole 40 mg tablet,delayed 40 mg PO QDAY #90 tabs 08/21/24 release ropinirole 0.5 mg tablet 0.5 mg PO 3XD #90 tabs 08/21/24 cefdinir 300 mg capsule 300 mg PO QDAY 10 days #10 caps 08/25/24 insulin NPH isoph U-100 human 100 30 unit (0.3 mL) subcut BID #15 mL 08/25/24 unit/mL (3 mL) subcutaneous pen (Humulin N NPH U-100 Insulin KwikPen) Allergies Allergy/AdvReac Type Severity Reaction Status Date / Time No Known Drug Allergies Allergy Verified 08/22/24 14:47 Review of Systems Status of ROS: Reports: 10 or more systems reviewed and unremarkable except as noted in History and below [facility] Surgical History History of squamous cell carcinoma excision ?Z98.890 - Other specified postprocedural states (ICD-10) ?Z85.9 - Personal history of malignant neoplasm, unspecified (ICD-10) History of aortic valve replacement ?Z95.2 - Presence of prosthetic heart valve (ICD-10) History of coronary artery bypass graft x 1 ?Z95.1 - Presence of aortocoronary bypass graft (ICD-10) History of colonoscopy ?Z98.890 - Other specified postprocedural states (ICD-10) History of skin cancer ?Z85.828 - Personal history of other malignant neoplasm of skin (ICD-10) Family History Son Aortic valve replaced Bicuspid aortic valve Brother Alzheimers disease Daughter Bicuspid aortic valve Maternal Grandfather Diabetes Myocardial infarction Heart disease Father Heart disease Mother Lymphoma Paternal Grandfather Prostate cancer Social History What is your current living situation?: I presently have a place to live Problems where you live: no known problems Problems where you live details: None In the past 12 months, utilities in danger of being shut off: no In past 12 months, lack of transportation kept you from medical appts, meetings, work, or getting things needed for daily living: no In the past 12 mos, have been you worried that your food would run out before you had money to buy more?: never true In the past 12 mos, the food you bought just didn't last and you didn't have money to buy more?: never true Are you following a diet prescribed by a doctor: No (Reports he is supposed to follow a low sodium, diabetic diet.) Are you following a special diet: No Highest level of school completed/degree received: some college, no degree Smoking Status: Never smoker How often do you have a drink containing alcohol: never AUDIT-C Alcohol total score: 0 Non-prescribed substance use: denies use Caffeine: Yes (1 cup a day) How often does anyone, including family, friends and others, physically hurt you : never How often does anyone, including family, friends and others, insult or talk down to you: never How often does anyone, including family, friends and others, threaten you with harm: never How often does anyone, including family, friends and others, scream or curse at you: never service: No Exam Narrative: Exam Narrative: Const: Well-nourished, Well-developed, in mild distress Eyes: PERRL, no conjunctival injection, and symmetrical lids HENT: Atraumatic external nose and ears. Moist mucous membranes. Neck: Symmetric, trachea midline, No thyromegaly. CVS: RRR, Peripheral pulses 2+ and equal in all extremities RESP: Unlabored respiratory effort. Clear to auscultation bilaterally. GI: Nontender/Nondistended, No rebound or guarding. Extremities:Extremities w/o deformity, Normal Active ROM, +3 pitting edema right lower extremity up to the knee and +1 in the left leg of the knee. erythema noted to the right way. Multiple large fluid filled blisters noted on bilateral lower extremity Neuro: Normal Muscle tone, No focal neurological deficits. Psych: Awake, Alert, & Oriented x3. Appropriate mood and affect. Const: Vital Signs, click to edit/add: Vital Signs - 24 hr 09/02/24 13:24 09/02/24 15:44 09/02/24 16:48 Temperature 99.8 F H Pulse Rate 92 Pulse Rate [Pulse Oximeter] 86 85 Respiratory Rate 18 20 Blood Pressure Blood Pressure [Ri ght Upper Arm] 132/78 Pulse Oximetry 97 95 Oxygen Delivery Me thod Room Air 09/02/24 16:50 09/02/24 16:51 09/02/24 17:00 Temperature 98.3 F Pulse Rate 92 93 86 Pulse Rate [Pulse Oximeter] Respiratory Rate Blood Pressure 100/54 L Blood Pressure [Ri ght Upper Arm] Pulse Oximetry 95 93 95 Oxygen Delivery Me thod 09/02/24 17:01 09/02/24 17:03 09/02/24 17:06 Temperature Pulse Rate 85 87 88 Pulse Rate [Pulse Oximeter] Respiratory Rate Blood Pressure 81/46 L 82/44 L 75/45 L Blood Pressure [Ri ght Upper Arm] Pulse Oximetry 97 95 95 Oxygen Delivery Me thod 09/02/24 17:23 09/02/24 17:24 09/02/24 17:30 Temperature Pulse Rate 91 87 91 Pulse Rate [Pulse Oximeter] Respiratory Rate Blood Pressure 81/45 L Blood Pressure [Ri ght Upper Arm] Pulse Oximetry 84 L 98 97 Oxygen Delivery Me thod 09/02/24 17:32 09/02/24 17:41 09/02/24 17:45 Temperature Pulse Rate 92 91 89 Pulse Rate [Pulse Oximeter] Respiratory Rate Blood Pressure 84/49 L 90/50 L 99/56 L Blood Pressure [Ri ght Upper Arm] Pulse Oximetry 97 95 96 Oxygen Delivery Me thod 09/02/24 17:46 09/02/24 17:51 09/02/24 17:52 Temperature Pulse Rate 89 92 90 Pulse Rate [Pulse Oximeter] Respiratory Rate Blood Pressure 101/59 L Blood Pressure [Ri ght Upper Arm] Pulse Oximetry 94 95 93 Oxygen Delivery Me thod 09/02/24 17:56 09/02/24 18:00 09/02/24 18:01 Temperature Pulse Rate 88 86 87 Pulse Rate [Pulse Oximeter] Respiratory Rate Blood Pressure 90/61 86/59 L Blood Pressure [Ri ght Upper Arm] Pulse Oximetry 93 94 96 Oxygen Delivery Me thod Course Vital Signs Vital signs: Initial Vital Signs Temperature 99.8 F H 09/02/24 13:24 Temperature Source Temporal Artery Scan 09/02/24 13:24 Pulse Rate 86 09/02/24 13:24 Pulse Rhythm Regular 09/02/24 13:24 Respiratory Rate 18 09/02/24 13:24 Blood Pressure 132/78 09/02/24 13:24 Blood Pressure Mean 96 09/02/24 13:24 Blood Pressure Position Supine 09/02/24 13:24 Pulse Oximetry 97 09/02/24 13:24 Oxygen Delivery Method Room Air 09/02/24 13:24 Vital Signs Temperature 99.8 F H 09/02/24 13:24 Pulse Rate 86 09/02/24 13:24 Respiratory Rate 18 09/02/24 13:24 Blood Pressure 132/78 09/02/24 13:24 Pulse Oximetry 97 09/02/24 13:24 Oxygen Delivery Method Room Air 09/02/24 13:24 Temperature 98.3 F 09/02/24 16:50 Pulse Rate 87 09/02/24 18:01 Respiratory Rate 20 09/02/24 15:44 Blood Pressure 86/59 L 09/02/24 18:01 Pulse Oximetry 96 09/02/24 18:01 Oxygen Delivery Method Room Air 09/02/24 13:24 Medications Administered Medications: Generic Name Dose Route Start Last Admin Trade Name Freq PRN Reason Stop Dose Admin Norepinephrine/Dextrose 4,000 mcg in 250 mls @ 29.427 mls/hr 09/02/24 17:30 09/02/24 17:37 Norepinephrine Infusion IV 0.1 mcg/kg/min CONT DEMOND 29.43 mls/hr Administration Protocol 0.1 MCG/KG/MIN Discontinued Medications Generic Name Dose Route Start Last Admin Trade Name Melba PRN Reason Stop Dose Admin Clindamycin Phosphate 600 mg in 50 mls @ 100 mls/hr 09/02/24 16:19 09/02/24 17:21 Clindamycin 600 Mg/50 Ml-[id number] IVPB 09/02/24 16:48 Infused ONCE ONE Infusion Sodium Chloride 500 mls @ 1,000 mls/hr 09/02/24 17:06 09/02/24 17:52 0.9 % Sodium Chloride 500 Ml IV 09/02/24 17:35 Infused .Q30M ONE Infusion Medical Decision Making MDM Narrative Medical decision making narrative: Patient is a 74-year-old male presenting for fatigue and lower extremity pain and swelling. Is lower extremity swelling may be related to his previously known CHF but he currently is not having any shortness of breath and feels better from that standpoint. The blisters are likely from all the edema and has been something he has been dealing with on and off for a while now. There is more swelling to the right lower extremity compared to the after mother's could all be CHF related I will do an ultrasound to rule out any blood clots. Will also order troponin, EKG, BMP, CBC, BNP, urinalysis. Not currently meet any SIRS criteria. Will hold off on giving any fluid due to his CHF. Lab work returns with a white count of 15.9. I was able to review his labs over at [facility] and his white count at that time was only 9.6 at that time. He also has thrombocytopenia currently which was present on his admission at the [facility]. Patient is on chronic steroids at this time but his son states they actually tapering the dose down. In seems unlikely that tapering the steroids down what increase his white blood cell count and he was already on these steroids before he even got to [facility]. I spoke to the patient's states providers at the [facility] when she called back were very concerned he could becoming septic from the cellulitis in his right leg. While the the right leg is swollen he is only SIRS criteria is the white count. The leg is not warm to the touch so does not really fit classic cellulitis but I will add a blood culture and lactate. Troponin is slightly elevated 0.07. BNP is elevated at 8180. His creatinine is elevated at 3.3. Reviewing his previous lab work at [facility] his creatinine was gradually worsening while there and at discharge is 3.19. Troponin also came back elevated. He just had an echocardiogram at [facility] on 08/29/2024 showing the followin. Small left ventricular chamber size, calculated 2-D linear ejection fraction 68%. 2. Abnormal ventricular septal motion - post-operative without other regional wall motion abnormalities. 3. Normal right ventricular chamber size, mild-moderately reduced systolic function. 4. Status post 23 mm On-X mechanical aortic valve prosthesis. Mean systolic Doppler gradient 3 mmHg. 5. Trivial (normal washing jets) aortic valve prosthetic regurgitation. No periprosthetic regurgitation visualized. 6. Mild mitral valve regurgitation. 7. Enlarged inferior vena cava size with reduced inspiratory collapse (<50%). 8. No pericardial effusion. 9. No evidence of constrictive pericarditis. 10. Left pleural effusion. He is not having any new chest pain. I am unable to find troponin on him from his hospitalization at the [facility]. While been trying to transfer the patient to [facility] the patient's started become hypotensive. He is hypotensive and both arms with 80s over 40s. Bedside ultrasound was done showing a good squeeze of the heart. Does not appear to be cardiogenic shock. Will also do manual blood pressure continues to show he is hypotensive. Since he was just released from the hospital for heart failure exacerbation he could be dehydrated but he is still has quite swollen lower extremities so there is concern that any fluids would send him into a fluid overload status. He may have a very faint DVT on the right side but I cannot definitively say. His chest x-ray appears show signs of CHF in my interpretation. Patient's has already received a 500 mL of fluid. I spoke to Dr. Cartwright of the [facility] Emergency Department and she recommends nor epi at this time. Recommends direct transfer to the ICU. Waiting for the ICU provider to call me back. I spoke to Dr. Qureshi accepted the patient for transfer to the ICU. Lab Data Labs: Lab Results 09/02/24 09/02/24 09/02/24 Range/Units 13:50 14:20 14:37 WBC 15.90 H (4.50-11.00) K/uL RBC 4.69 (4.30-5.90) m/uL Hgb 13.4 L (13.5-17.5) gm/dL Hct 42.2 (37.0-53.0) % MCV 90 (80-100) fL MCH 29 (26-34) pg MCHC 32 (32-36) gm/dL RDW Coeff of Mila 15.5 (11.5-15.5) % Plt Count 106 L (140-440) K/uL Neut % (Auto) 88.9 H (42.0-72.0) % Lymph % (Auto) 4.8 L (20-44) % [place] % (Auto) 5.8 (0.0-11.0) % Eos % (Auto) 0.1 (0.0-7.0) % Baso % (Auto) 0.1 (0.0-3.0) % Neut # (Auto) 14.10 H (1.7-7.0) K/uL Lymph # (Auto) 0.80 L (0.90-2.90) K/uL [place] # (Auto) 0.90 (0.00-0.90) K/UL Eos # (Auto) 0.00 (0.00-0.50) K/uL Baso # (Auto) 0.00 (0.00-0.30) K/uL Abs Immat Gran (auto) 0.00 (0.00-0.30) K/uL Imm/Tot Granulo (auto) 0.3 % INR 2.20 H (0.91-1.10) Sodium 138 (135-149) mmol/L Potassium 3.9 (3.6-5.1) mmol/L Chloride 95 L (96-114) mmol/L Carbon Dioxide 36 H (20-32) mmol/L Anion Gap 7 (7-15) mEq/L BUN 89 H (7-30) mg/dL Creatinine 3.3 H (0.5-1.5) mg/dL Estimated Creat Clear 19.58 Estimated GFR 19 ml/min Glucose 76 (60-115) mg/dL Lactate (0.5-1.9) mmol/L Calcium 9.2 (8.4-10.6) mg/dL Troponin I 0.07 H* (0.01-0.04) ng/mL C-Reactive Protein 2.9 H (0.5-1.0) mg/dL NT-Pro-B Natriuret Pep 8180 pg/mL Urine Color Yellow (Yellow) Urine Appearance Clear (Clear) Urine pH 5.5 (5.0-8.5) Ur Specific Everest 1.010 (1.000-1.030) Urine Protein 1+ A (Negative) Urine Glucose (UA) Negative (Negative) Urine Ketones Negative (Negative) Urine Blood 2+ A (Negative) Urine Nitrite Negative (Negative) Urine Bilirubin Negative (Negative) Urine Urobilinogen 0.2 (0.2-1.0) Ur Leukocyte Esterase Negative (Negative) Urine RBC 10-25 A (0-2) Urine WBC 0-2 (0-5) Ur Squamous Epith Cells None (None-Few) Urine Bacteria None (None) SARS-CoV-2 (PCR) (Negative) Influenza Type A (PCR) (Negative) Influenza Type B (PCR) (Negative) RSV (PCR) (Negative) Lab Acknowledgement Test Added 09/02/24 09/02/24 09/02/24 Range/Units 14:37 16:15 16:17 WBC (4.50-11.00) K/uL RBC (4.30-5.90) m/uL Hgb (13.5-17.5) gm/dL Hct (37.0-53.0) % MCV (80-100) fL MCH (26-34) pg MCHC (32-36) gm/dL RDW Coeff of Mila (11.5-15.5) % Plt Count (140-440) K/uL Neut % (Auto) (42.0-72.0) % Lymph % (Auto) (20-44) % [place] % (Auto) (0.0-11.0) % Eos % (Auto) (0.0-7.0) % Baso % (Auto) (0.0-3.0) % Neut # (Auto) (1.7-7.0) K/uL Lymph # (Auto) (0.90-2.90) K/uL [place] # (Auto) (0.00-0.90) K/UL Eos # (Auto) (0.00-0.50) K/uL Baso # (Auto) (0.00-0.30) K/uL Abs Immat Gran (auto) (0.00-0.30) K/uL Imm/Tot Granulo (auto) % INR (0.91-1.10) Sodium (135-149) mmol/L Potassium (3.6-5.1) mmol/L Chloride (96-114) mmol/L Carbon Dioxide (20-32) mmol/L Anion Gap (7-15) mEq/L BUN (7-30) mg/dL Creatinine (0.5-1.5) mg/dL Estimated Creat Clear Estimated GFR ml/min Glucose (60-115) mg/dL Lactate 1.5 (0.5-1.9) mmol/L Calcium (8.4-10.6) mg/dL Troponin I (0.01-0.04) ng/mL C-Reactive Protein (0.5-1.0) mg/dL NT-Pro-B Natriuret Pep pg/mL Urine Color (Yellow) Urine Appearance (Clear) Urine pH (5.0-8.5) Ur Specific Everest (1.000-1.030) Urine Protein (Negative) Urine Glucose (UA) (Negative) Urine Ketones (Negative) Urine Blood (Negative) Urine Nitrite (Negative) Urine Bilirubin (Negative) Urine Urobilinogen (0.2-1.0) Ur Leukocyte Esterase (Negative) Urine RBC (0-2) Urine WBC (0-5) Ur Squamous Epith Cells (None-Few) Urine Bacteria (None) SARS-CoV-2 (PCR) Negative SARS-CoV-2 (Negative) Influenza Type A (PCR) Negative PCR FLU A (Negative) Influenza Type B (PCR) Negative PCR FLU B (Negative) RSV (PCR) Negative PCR RSV (Negative) Lab Acknowledgement Test Added Imaging Data Venous US: Attestation: I have reviewed the pertinent imaging results. Radiologist's impression: No DVT in the bilateral lower extremities. Dictated by Palomo Choi MD @ 09/02/2024 3:10:12 PM ECG Data Attestation: I personally reviewed and interpreted this ECG as follows: Interpretation: Normal sinus rhythm with rate of 78 beats per minute, normal intervals, rightward axis, inverted T-waves in lead 3. No ST abnormalities. Previous EKG shows a normal axis from 11/08/2023 and flat T-waves a relative difficult to determine if these inversions in III are new Critical Care Time Critical Care Time Critical Care Time: Yes Attestation: The patient required my highest level preparedness to intervene emergently and I personally spent this critical care time directly and personally managing the patient. This critical care time included: Obtaining a history; Examining the patient; Pulse oximetry; Ordering and reviewing of studies; Arranging urgent treatment with development of a management plan; Evaluation of patients response to treatment; Frequent reassessment discussions with other providers. This critical care time was performed to assess and manage the high probability of imminent life-threatening deterioration that could result in multiorgan failure. It was exclusive of separate billable procedures and treating other patients and teaching time. Total Critical Care Time in Minutes: 65 Discharge Plan Discharge Clinical Impression: Shock Patient Disposition: Xfer [facility] Condition: Critical Prescriptions: No Action atorvastatin 80 mg tablet 80 mg PO DAILY mecobalamin (vitamin B12) PO DAILY cholecalciferol (vitamin D3) 2,000 unit PO DAILY aspirin 81 mg tablet,chewable 81 mg PO DAILY finasteride 5 mg tablet 5 mg PO DAILY Qty: 90 3RF tamsulosin 0.4 mg capsule 0.4 mg PO DAILY Qty: 90 3RF colchicine 0.6 mg tablet 0.6 mg PO QDAY torsemide 20 mg tablet 40 mg PO QDAY Qty: 28 0RF Patient Comments: patient stated he is taking 60mg BID glipizide 5 mg tablet 5 mg PO QDAY Qty: 90 3RF Patient Comments: On Hold prednisone 20 mg tablet 20 mg PO QDAY Novolin N FlexPen 100 unit/mL (3 mL) insulin pen 25 unit subcut BID Rx Instructions: Per [facility] Providers directions sulfamethoxazole-trimethoprim [Bactrim DS] 800-160 mg tablet 1 tab PO QDAY cefdinir 300 mg capsule 300 mg PO QDAY 10 Days Qty: 10 0RF (DME) blood-glucose meter [Accu-Chek Guide Glucose Meter] Misc MISCELLANEOUS Patient Comments: [NO ORIGINAL SIG] (DME) Accu-Chek Guide test strips Strip MISCELLANEOUS cefadroxil 500 mg capsule 500 mg PO DAILY alcohol swabs [Alcohol Prep Pads] Pads, Medicated 1 pad topical 3XD (DME) Accu-Chek Guide L1-L2 Ctrl Nimo Solution MISCELLANEOUS Patient Comments: [NO ORIGINAL SIG] metoprolol succinate 50 mg tablet extended release 24 hr 50 mg PO DAILY Qty: 90 3RF warfarin 1 mg tablet 1 mg PO QHS Qty: 240 0RF Protocol: Dose Management Condition: Sunday Dose/Route: 2 mg Instruction: 2 x 1 mg tablets Condition: Sunday Dose/Route: 2 mg Instruction: 2 x 1 mg tablets Condition: Sunday Dose/Route: 2 mg Instruction: 2 x 1 mg tablets Condition: Sunday Dose/Route: 2 mg Instruction: 2 x 1 mg tablets Condition: Dose/Route: 2 mg Instruction: 2 x 1 mg tablets Condition: Sunday Dose/Route: 2 mg Instruction: 2 x 1 mg tablets Condition: Sunday Dose/Route: 2 mg Instruction: 2 x 1 mg tablets Protocol Text: Adjustment Start Date: Sunday08/12/24 INR Value: 2.4 INR Date: 08/12/24 Recheck Date: 08/26/24 Rx Instructions: pt to take 3mg PQ QD ropinirole 0.5 mg tablet 0.5 mg PO 3XD Qty: 90 3RF pantoprazole 40 mg tablet,delayed release (DR/EC) 40 mg PO QDAY Qty: 90 3RF Humulin N NPH Insulin KwikPen 100 unit/mL (3 mL) insulin pen 30 unit subcut BID Qty: 15 2RF Rx Instructions: 30 units in the AM, 20 units in the PM Follow Up/Referrals: Rowena Reddy MD [Primary Care Provider] - Stand Alone Forms: MyHealth Info Instructions
[2024-09-02 14:23] LABS: Appearance Urine Clear (Clear); Bilirubin Urine Negative (Negative); Blood Urine 2+ (Negative); Color Urine Yellow (Yellow); Glucose Urine Negative (Negative); Ketones Urine Negative (Negative); Leukocyte Esterase Urine Negative (Negative); Nitrite Urine Negative (Negative); Protein Urine 1+ (Negative); Urobilinogen Urine 0.2 (0.2-1.0); pH Urine 5.5 (5.0-8.5)
[2024-09-02 14:31] LABS: WBC Urine 0-2 (0-5)
[2024-09-02 14:57] LABS: Basophils Percent Auto 0.1 % (0.0-3.0); Eosinophils Percent Auto 0.1 % (0.0-7.0); Hematocrit 42.2 % (37.0-53.0); Hemoglobin* 13.4 gm/dL (13.5-17.5); Immature Granulocytes Pct Auto 0.3 %; Lymphocytes Percent Auto 4.8 % (20-44); Mean Corpuscular HGB Conc 32 gm/dL (32-36); Mean Corpuscular Hemoglobin 29 pg (26-34); Mean Corpuscular Volume 90 fL (80-100); Monocytes Percent Auto 5.8 % (0.0-11.0); Neutrophils Percent Auto 88.9 % (42.0-72.0); Platelet Count* 106 K/uL (140-440); RDW Coefficient of Variation % 15.5 % (11.5-15.5); Red Blood Count 4.69 m/uL (4.30-5.90)
[2024-09-02 15:01] LABS: Slide Review Reflex No
--- OUTSIDE RECORDS SUMMARY | 2024-09-02 15:11 | XMS_ITS | Clinical Summary ---
Author Organization [facility] Address [address] [place] [address] Care Team Providers Care Compugraph Operator Name Role Phone Elsewhere, Pcp Primary Care Provider Unavailabl e Source Comments Patient records contain information from all sites at [facility]. For routine questions regarding patient records, call [phone] during business hours, M-F 8:00 AM - 5:00 PM Central Time. Record requests for emergency care only can be directed to [phone] at any time.[facility] Allergies No known active allergies Medications cholecalcifer ol 10 mcg (400 Unit) tablet Take 10 mcg by mouth daily. Active cyanocobalami n 2,000 mcg tablet Take 2,000 mcg by mouth daily. Active aspirin 81 mg chewable tablet Chew 1 tablet (81 mg total) daily. 2023 Active atorvastatin (LIPITOR) 80 mg tablet Take 1 tablet (80 mg total) by mouth at bedtime. 2023 Active finasteride (PROSCAR) 5 mg tablet Take 1 tablet (5 mg total) by mouth daily. Active rOPINIRole (REQUIP) 0.5 mg tablet Take 1 tablet (0.5 mg total) by mouth 3 (three) times a day. Active tamsulosin (FLOMAX) 0.4 mg 24 hr capsule Take 1 capsule (0.4 mg total) by mouth at bedtime. Active metoprolol succinate (TOPROL-XL) 50 mg 24 hr tablet Take 1 tablet by mouth daily. Active lancets 2 each daily. 200 each 08/01/20 2:47 PM CDT 024 2024 Active alcohol swabs pads, medicated Use as needed for diabetes control 1500 each 3 08/01/20 2:47 PM CDT Active blood sugar diagnostic strips 2 test daily. 200 test 08/01/20 2:47 PM CDT 024 2024 Active blood-glucose meter misc Test as directed for diabetes control. 1 each 08/01/20 2:47 PM CDT Active blood glucose control high,low (Accu-Chek Guide L1-L2 Ctrl Nimo) solution Glucose control solution provides an easy way to ensure accurate blood glucose testing. 1 each 08/01/20 2:47 PM CDT Active pen needle, diabetic (BD Ultra-Fine Short Pen Needle) 31 gauge x 5/16 needle 2 Injection daily. 100 each 08/01/20 2:47 PM CDT 024 2024 Active warfarin (Jantoven) 1 mg tabletIndicat ions:Prosthes is Aortic Valve Take 2 mg daily until your INR check with Anticoagulation Clinic 7 tablet 08/01/20 2:47 PM CDT Active predniSONE (Deltasone) 5 mg tablet Take 4 tablets (20 mg) by mouth daily for 28 days, THEN 3.5 tablets (17.5 mg) daily for 14 days, THEN 3 tablets (15 mg) daily for 14 days until pericardial appt. Further dose to be decided at appt. DO NOT STOP TAKING ABRUPTLY 1020 tablet 08/01/20 2:47 PM CDT 2023 Active insulin NPH (NovoLIN N FlexPen) 100 unit/mL (3 mL) pen Inject 25 units subcutaneously in the morning and 10 units in the evening. Call in for dose adjustment Active Additional Information Patient taking differently: Inject 30 units subcutaneously in the morning and 20 units in the evening. Call in for dose adjustment, Reported on 08/27/2024 acetaminophen (TylenoL) 500 mg tablet Take 2 tablets (1,000 mg total) by mouth every 6 (six) hours as needed for pain. Active cefadroxil (Duricef) 500 mg capsuleIndica tions:Skin and soft tissue infection Take 1 capsule (500 mg total) by mouth daily for 7 days Indications: Skin and soft tissue infection. 7 capsule 2023 Active torsemide (Demadex) 20 mg tablet Take 3 tablets (60 mg total) by mouth 2 (two) times a day. 120 tablet 2 Active acetaminophen (TYLENOL) 500 mg tablet Take 1,000 mg by mouth every 6 (six) hours as needed for pain. 2023 Discontinued(T herapy completed) iron,carbonyl -vitamin C (VITRON-C) 65 mg iron- [address] tablet Take 1 tablet (65 mg of iron total) by mouth daily. Do not crush or chew. 90 tablet 3 2023 Discontinued(T herapy completed) insulin NPH (NovoLIN N FlexPen) 100 unit/mL (3 mL) pen Inject 20 units subcutaneously in the morning and 10 units in the evening. Call in for dose adjustment 15 mL 08/01/20 2:47 PM CDT 2023 Discontinued colchicine (Colcrys) 0.6 mg tablet Take 1 tablet (0.6 mg total) by mouth daily. 30 tablet 2023 pantoprazole (Protonix) 40 mg EC tablet Take 1 tablet (40 mg total) by mouth daily before morning meal. 30 tablet 08/01/20 24 2:47 PM CDT 2023 torsemide (Demadex) 20 mg tablet Take 1 tablet (20 mg total) by mouth daily. 30 tablet 2023 Discontinued(S top Taking at Discharge) sulfamethoxaz ole-trimethop rim (Bactrim) 400-80 mg per tabletIndicat ions:Prophyla xis, medical Take 1 tablet by mouth daily for 28 doses Indications: Prophylaxis, medical. 28 tablet 08/01/20 24 2:47 PM CDT 2023 Discontinued cefdinir (Omnicef) 300 mg capsule Take 300 mg by mouth daily. 024 2023 Discontinued(S top Taking at Discharge) sulfamethoxaz ole-trimethop rim (Bactrim) 400-80 mg per tabletIndicat ions:Prophyla xis, medical Take 1 tablet by mouth daily for 28 doses Indications: Prophylaxis, medical. 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 Post Hospital Follow-up 09/02/2024 Clinical Communication Department of Cardiovascular Medicine in [place], [place] [address] [place] [address] Eneida Loya, R.N. 08/31/2024 9:50 AM CDT Ancillary Procedure Department of Nursing Arrived 08/31/2024 9:45 AM CDT Ancillary Procedure Department of Nursing Arrived 08/28/2024 8:35 AM CDT Ancillary Procedure Department of Nursing 08/28/2024 8:30 AM CDT Ancillary Procedure Department of Nursing 08/27/2024 2:10 PM CDT Ancillary Procedure Department of Emergency Medicine 08/27/2024 1:37 PM CDT - 08/31/2024 3:15 PM CDT Hospital Encounter [facility], Fifth Floor [address] [place] [phone] Obdulio Salinas P.A.-C. Cullen, Michael W, M.D. Bois, John P, M.D. Mando Fang M.D., Ph.D. Edema Leg (Primary Dx); Decline Functional Status [R53.81] Discharge Disposition: Home or Self Care 08/06/2024 Clinical Communication Division of Endocrinology in [address] [phone] Emerson Goddard, R.N. Communication 08/05/2024 Clinical Communication Division of Endocrinology in [place], [place] [address] [place] [phone] Lola Payan R.N. Dose Adjustment 08/04/2024 Clinical Communication Division of Endocrinology in [place], [place] [address] [place] [phone] Emerson Goddard R.N. Communication 07/30/2024 9:50 AM CDT Ancillary Procedure Department of Nursing 07/30/2024 9:45 AM CDT Ancillary Procedure Department of Nursing 07/30/2024 Clinical Communication [facility] [address] [place] [phone] Barbara Valencia M.B., B.Ch. 07/28/2024 10:40 AM CDT Ancillary Procedure Department of Nursing 07/25/2024 1:35 PM CDT Ancillary Procedure Department of Nursing 07/25/2024 1:00 PM CDT Ancillary Procedure Department of Nursing 07/24/2024 4:49 PM CDT - 08/01/2024 2:08 PM CDT Hospital Encounter [facility], Fourth Floor [address] [place] [phone] Fanny Goodwin M.D., M.S. Haily Campbell APRN, C.N.P., D.N.P. Josee Devlin P.A.-C., M.S. Yasmine Garduno M.D., Ph.D. Deven Clement M.D., M.S. Shameka Feldman M.D. Fanny Zelaya M.D. Edema Leg (Primary Dx); Shortness Of Breath; Effusion Pleural; Diabetes Mellitus Type 2 (HCC); Prosthesis Aortic Valve Discharge Disposition: Home or Self Care 06/11/2024 1:30 PM CDT External Outreach Division of Nephrology and Hypertension in [place], [place] [address] [place] [phone] Atif Nance Jr., D.O. Hypertensive Heart And [...] drink = 0.6 oz pur e alcohol) [facility] [employer] Answer Date Recorded In the past 12 months has e [employer], oil, or water [employer] threatened to shut off services in your home? No 08/27/2024 Humiliation, Afraid, Rape, and Kick questionnair e Answer Date Recorded Within the last year, have y ou been afraid of your partner or ex-partner? No 08/27/2024 Within the last year, have y ou been humiliated or emotionally abused in other ways by your partner or ex-partner? No Within the last year, have y ou been kicked, hit, slapped, or otherwise physically hurt by your partner or ex-partner? No 08/27/2024 Within the last year, have y ou been raped or forced to have any kind of sexual activity by your partner or ex-partner? No 08/27/2024 Overall Financial Resource Strain (CARDIA) Answe r Date Recorded How hard is it for you to pa y for the very basics like food, housing, medical care, and heating? Patient declined 08/29/2023 PHQ-2 Answer Date Recorded PHQ-2 Score 1 08/30/2024 Exercise Vital Sign Answer Date Recorde d [...] the money to buy more. Never true 08/27/20 24 Within the past 12 months, t he food you bought just didn't last and you didn't have money to get more. Never true 08/27/2024 PRAPARE - Transportation Answer Date Re corded In the past 12 months, has l ack of transportation kept you from medical appointments or from getting medications? No 08/12 In the past 12 months, has l ack of transportation kept you from meetings, work, or from getting things needed for daily living? No 08/27/2024 Depression Answer Date Recor ded PHQ-9 Total Score (max 27) 3 08/30 Nutrition Answer Date Recorded On average, how [...] have a [facility] place to live 08/27/2024 Sex and Gender Information Value Date Recorded Sex Assigned at Male 08/29/2023 11:06 AM CDT Legal Sex Male 9:17 AM CDT Gender Identity Male 08/29/2023 11:06 AM CDT Sexual Orientation Straight 08/29/2023 11 :06 AM CDT Last Filed Vital Signs Vital Sign Reading Time Taken Comments Blood Pressure 109/68 08/31/2024 2:00 PM CDT Pulse 60 08/31/2024 2:00 PM CDT Temperature 36.4 ??C (97.5 ??F) 08/31/2024 2:00 PM CD T Respiratory Rate 17 08/31/2024 2:00 PM CDT Oxygen Saturation 97% 08/31/2024 11:45 AM CDT Inhaled Oxygen Concentration - - Weight 79.9 kg (176 lb 2.4 oz) 08/31/2024 3:00 A M CDT Height 169 cm (5' 6.54) 08/27/2024 4:28 PM CDT Body Mass Index 27.98 08/27/2024 4:28 PM CDT Plan of Treatment Upcoming Encounters Date Type Department Care Team (Latest Contact Info) Description 09/05/2024 2:45 PM CDT Appointment Department of Radiology, [facility] in [place], [place] [address] [place] [phone] Deven Clement M.D., M.S. [address] [place] [phone] 09/08/2024 7:15 AM CDT Clinical Communication Virtual Review in [place], [place] [address] [place] [phone] 09/16/2024 1:00 PM DROP WIRE HANGER [facility] [place], [place] [address] [place] [phone] Deven Clement M.D., M.S. [address] [place] [phone] 09/16/2024 1:20 PM DROP WIRE HANGER Appointment Department of Laboratory Medicine and Pathology, [facility] in [place], [place] [address] [place] [phone] Deven Clement M.D., M.S. [address] [place] [phone] 09/16/2024 1:40 PM DROP WIRE HANGER Ancillary Procedure Department of Cardiovascular Medicine in [place], [place] [address] [place] [phone] Deven Clement M.D., M.S. [address] [place] [phone] 09/16/2024 4:00 PM DROP WIRE HANGER Comprehensive Visit Department of Cardiovascular Medicine in [place], [place] [address] [place] [address] Keagan Tellez M.D. [address] [place] [phone] Health Maintenance Due Date Last Done Comments [...] 06/11/2024 Creatinine Level (Kidney Fun ction Test) 08/31/2025 08/31/2024, 08/30/2024, 08/29/2024, Additional history exists Potassium Level 08/31/2025 08/31/2024, 08/12, 08/29/2024, Additional history exists Sodium Level 08/31/2025 08/31/2024, 08/12, 08/29/2024, Additional history exists Lipid (Cholesterol) Screening 12/24/2028 12/24/2023, 08/21/2023 Colonoscopy 11/21/2032 11/21/2022, 11/12 (Performed elsewhere), 11/21/2022 Colorectal Cancer Screening 11/21/2032 Fall Risk Screen (Annual) Completed 08/27/2024 Medical Devices Implanted Type Area Senior Software Tester Device Identifier Shelf Expiration Date Model / Serial / Lot Vlv Aort Cnf [facility] 23 - [id number] - [id number] Implanted:Qty: 1 on 09/19/2023 by Sarah Miller M.D., M.P.H[facility] at [facility] Cardiac Valve Prosthesis N/A: Aortic Valve Artivion (Prev. CryoLife) 2028 ONXACE-2 3 / [id number] / Description:MRI conditional up to 3T, normal mode, per pyrometer temperature regulator. [email or web address] ation _All.pdf AFK Clp Hrzn Ti 24 Nika Vallejo Akhil - [id number] Implanted:Qty: 1 on 09/19/2023 by Sarah Miller M.D., M.P.H. at [facility] Hardware e.g. pins/screws/r ods N/A: Chest [employer] [id number] 04/29/2028 [id number] / / [id number] Clp Hrzn Ti 6 Nika Vallejo Akhil - [id number] Implanted:Qty: 1 on 09/19/2023 by Sarah Miller M.D., M.P.H. at [facility] Hardware e.g. pins/screws/r ods N/A: Chest [employer] [id number] / / Clp Hrzn Ti 24 Clp Sm Red - [id number] Implanted:Qty: 1 on 09/19/2023 by Sarah Miller M.D., M.P.H[facility] at [facility] Hardware e.g. pins/screws/r ods N/A: Chest [employer] [id number] / / Clp Hrzn Ti 24 Clp Sm Red - [id number] Implanted:Qty: 1 on 09/19/2023 by Sarah Miller M.D., M.P.H. at [facility] Hardware e.g. pins/screws/r ods N/A: Chest [employer] [id number] / / [place] Surg Tfln 1x6 - [id number] Implanted:Qty: 1 on 09/19/2023 by Sarah Miller M.D., M.P.H. at [facility] Hardware e.g. pins/screws/r ods N/A: Chest [employer] [id number] / / Medtronic Linq-05/05/2019 Implanted:04/13 by Chet Badillo M.D., Ph.D. (Quantity not on file) Implantable Loop Recorder Chest Medtronic [id number] / [id number] / Description:MR Conditional 1 .5T and 3T - First level operating mode. - Jayro Abernathy 12/25/2023 Procedures Procedure Name Priority Date/Time Associated Diagnosis Comments GLUCOSE POCT, B Routine 08/31/2024 11:50 AM CDT GLUCOSE POCT, B Routine 08/31/2024 11:48 AM CDT NURSING IMAGE EXAM Routine 08/31/2024 9: 47 AM CDT NURSING IMAGE EXAM Routine 08/31/2024 9: 45 AM CDT CBC WITH DIFFERENTIAL, B Routine 08/31/2024 8:35 AM CDT BASIC METABOLIC PANEL, S/P Routine 08/31/2024 8:35 AM CDT PROTHROMBIN TIME (PT), P Routine 08/31/2024 8:35 AM CDT GLUCOSE POCT, B Routine 08/31/2024 6:58 AM CDT GLUCOSE POCT, B Routine 08/31/2024 3:31 AM CDT GLUCOSE POCT, B Routine 08/30/2024 9:07 PM CDT GLUCOSE POCT, B Routine 08/30/2024 4:45 PM CDT GLUCOSE POCT, B Routine 08/30/2024 11:55 AM CDT ADULT OXYGEN THERAPY Routine 08/30/2024 8:00 AM CDT CBC WITH DIFFERENTIAL, B Routine 08/30/2024 7:48 AM CDT MAGNESIUM, S Routine 08/30/2024 7:48 AM CDT BASIC METABOLIC PANEL, S/P Routine 08/30/2024 7:48 AM CDT PROTHROMBIN TIME (PT), P Routine 08/30/2024 7:48 AM CDT GLUCOSE POCT, B Routine 08/30/2024 6:34 AM CDT GLUCOSE POCT, B Routine 08/29/2024 9:36 PM CDT ADULT OXYGEN THERAPY Routine 08/29/2024 8:01 PM CDT BACTERIA / JAIDA CULTURE, BLOOD STAT 08/29/2024 5:12 PM CDT LACTATE FOR SEPSIS WITH REFLEX STAT 08/29/2024 5:01 PM CDT BACTERIA / JAIDA CULTURE, BLOOD STAT 08/29/2024 5:01 PM CDT GLUCOSE POCT, B Routine 08/29/2024 4:37 PM CDT (TTE) 2D ECHO DOPPLER COLOR Routine 08/29/2024 2:04 PM CDT GLUCOSE POCT, B Routine 08/29/2024 11:26 AM CDT MAGNESIUM, S Routine 08/29/2024 8:12 AM CDT BASIC METABOLIC PANEL, S/P Routine 08/29/2024 8:12 AM CDT CBC WITHOUT DIFFERENTIAL, B Routine 08/29/2024 8:12 AM CDT PROTHROMBIN TIME (PT), P Routine 08/29/2024 8:12 AM CDT ADULT OXYGEN THERAPY Routine 08/29/2024 8:01 AM CDT GLUCOSE POCT, B Routine 08/29/2024 6:51 AM CDT GLUCOSE POCT, B Routine 08/28/2024 9:42 PM CDT ADULT OXYGEN THERAPY Routine 08/28/2024 8:00 PM CDT GLUCOSE POCT, B Routine 08/28/2024 4:44 PM CDT GLUCOSE POCT, B Routine 08/28/2024 11:48 AM CDT NURSING IMAGE EXAM Routine 08/28/2024 8: 33 AM CDT NURSING IMAGE EXAM Routine 08/28/2024 8: 30 AM CDT ADULT OXYGEN THERAPY Routine 08/28/2024 8:01 AM CDT C-REACTIVE PROTEIN (CRP), S/P Routine 08/28/2024 7:32 AM CDT MAGNESIUM, S Routine 08/28/2024 7:32 AM CDT BASIC METABOLIC PANEL, S/P Routine 08/28/2024 7:32 AM CDT CBC WITHOUT DIFFERENTIAL, B Routine 08/28/2024 7:32 AM CDT PROTHROMBIN TIME (PT), P Routine 08/28/2024 7:32 AM CDT GLUCOSE POCT, B Routine 08/28/2024 7:09 AM CDT GLUCOSE POCT, B Routine 08/27/2024 11:13 PM CDT LACTATE, B/P Timed 08/27/2024 6:30 PM CDT GLUCOSE POCT, B Routine 08/27/2024 6:29 PM CDT ADULT OXYGEN THERAPY Routine 08/27/2024 5:51 PM CDT ADULT OXYGEN THERAPY Routine 08/27/2024 5:51 PM CDT ADULT OXYGEN THERAPY Routine 08/27/2024 5:51 PM CDT NT-PRO B-TYPE NATRIURETIC PEPTIDE (BNP), S STAT 08/27/2024 2:59 PM CDT PROTHROMBIN TIME (PT), P STAT 08/27/2024 2:59 PM CDT LACTATE FOR SEPSIS WITH REFLEX STAT 08/27/2024 2:59 PM CDT BASIC METABOLIC PANEL, S/P STAT 08/27/2024 2:59 PM CDT CBC WITH DIFFERENTIAL, B STAT 08/27/2024 2:59 PM CDT DX CHEST AP OR PA AND LATERAL 2 VIEWS RAD - Semiurgent (Fast; most ED patients; some inpatients) 08/27/2024 2:40 PM CDT ECG Routine 08/27/2024 2:18 PM CDT EMERGENCY MEDICINE IMAGE EXAM Routine 08/27/2024 2:10 PM CDT GLUCOSE POCT, B Routine 08/01/2024 11:23 AM [...] LIPID PANEL, S Routine 12/24/2023 9:44 AM DROP WIRE HANGER Stenosis Aortic Valve Acquired COLONOSCOPY Routine 11/21/2022 from Last 3 Months or Most Recently Relevant to Health Maintenance Results * (ABNORMAL) Glucose, POCT (08/31/2024 11:50 AM CDT) Only the most recent of48 resultswithin the time period is included. Glucose, POCT, B 397(H) 70 - 140 mg/dL 08/31/2024 12:06 PM CDT PCLX Site Capillary 08/31/2024 12:06 PM CDT PCLX Last Intake 3-4 hours 08/31/2024 12:06 PM CDT PCLX Blood 08/31/2024 11:5 0 AM CDT 08/31/2024 12:07 PM CDT us Unknown Provider LAB POCT ORDERABLES-MANUAL Eliana l Result POC [facility] [address] [place] [address], [place] PCLX [facility] [address] [place] [address] * Leg, left-Nursing Image Exam (08/31/2024 9:47 AM CDT) Only the most recent of9 resultswithin the time period is included. 08/31/2024 9:44 AM CDT Narrative IIMS - 08/31/2024 9:47 AM CDT This order has been created and auto-finalized to support the import of images acquired without order. The clinical documentation to support these images can be found on the encounter that produced images. Provider Not In System IMG NON RAD IMAGING PROCE DURES Final Result Performing Organization Address [facility] de Phone Number IIPA NA * (ABNORMAL) Prothrombin Time (PT) (08/31/2024 8:35 AM CDT) Only the most recent of14 resultswithin the time period is included. Prothrombin Time, P 24.7(H) 9.4 - 12.5 sec 08/31/2024 9:30 AM CDT DTL INR 2.2 0.9 - 1.1 08/31/2024 9:30 AM CDT DTL Comment: ----ADDITIONAL INFORMATION---- Standard intensity warfarin therapeutic range: 2.0 to 3.0 ?? High intensity warfarin therapeutic range: 2.5 to 3.5 Blood (Blood, Venous) 08/31/2024 8:35 AM CDT 08/31/2024 9:01 AM CDT Mundo Camacho M.D. LAB BLOOD ADD-ON Final Res ult Performing Organization Address City/[facility] Co de Phone Number [facility] [address] [place] [address], [facility] DTL [facility] [address] [place] [address] * (ABNORMAL) CBC with Differential, Blood (08/31/2024 8:35 AM CDT) Only the most recent of11 resultswithin the time period is included. Hemoglobin 12.8(L) 13.2 - 16.6 g/dL 08/31/2024 9:10 AM CDT DTL Hematocrit 38.7 38.3 - 48.6 % 08/31/2024 9:10 AM CDT DTL Erythrocytes 4.45 4.35 - 5.65 x10(12)/L 08/31/2024 9:10 AM CDT DTL MCV 87.0 78.2 - 97.9 fL 08/31/2024 9:10 AM CDT DTL RBC Distrib Width 15.4(H) 11.8 - 14.5 % 08/31/2024 9:10 AM CDT DTL Platelet Count 111(L) 135 - 317 x10(9)/L 08/31/2024 9:10 AM CDT DTL Leukocytes 9.6 3.4 - 9.6 x10(9)/L 08/31/2024 9:10 AM CDT DTL Neutrophils 7.77(H) 1.56 - 6.45 x10(9)/L 08/31/2024 9:10 AM CDT DHPM Lymphocytes 0.89(L) 0.95 - 3.07 x10(9)/L 08/31/2024 9:10 AM CDT DTL Monocytes 0.80 0.26 - 0.81 x10(9)/L 08/31/2024 9:10 AM CDT DTL Eosinophils 0.07 0.03 - 0.48 x10(9)/L 08/31/2024 9:10 AM CDT DTL Basophils 0.03 0.01 - 0.08 x10(9)/L 08/31/2024 9:10 AM CDT DTL Blood (Blood, Venous) 08/31/2024 8:35 AM CDT 08/31/2024 9:02 AM CDT us Mando Fang M.D., Ph.D. LAB BLOOD ADD-ON Final Result [facility] [address] [place] [address], [place] DTL [facility] [address] [place] [address] [facility] [address] [place] [address] * (ABNORMAL) Basic Metabolic Panel (08/31/2024 8:35 AM CDT) Only the most recent of15 resultswithin the time period is included. Potassium, S 4.9 3.6 - 5.2 mmol/L 08/31/2024 9:38 AM CDT DTL Sodium, S 134(L) 135 - 145 mmol/L 08/31/2024 9:38 AM CDT DTL Chloride, S 92(L) 98 - 107 mmol/L 08/31/2024 9:38 AM CDT DTL Bicarbonate, S 28 22 - 29 mmol/L 08/31/2024 9:38 AM CDT DTL Anion Gap 14 7 - 15 08/31/2024 9:38 AM CDT DTL BUN (Blood Urea Nitrogen), S 76(H) 8 - 24 mg/dL 08/31/2024 9:38 AM CDT DTL Creatinine 3.19(H) 0.74 - 1.35 mg/dL 08/31/2024 9:38 AM CDT DTL Estimated GFR (eGFR) 20(L) >=60 mL/min/BSA 08/31/2024 9:38 AM CDT DTL Comment: Estimated GFR calculated using the 2020 CKD_EPI creatinine equation. Calcium, Total, S 8.9 8.8 - 10.2 mg/dL 08/31/2024 9:38 AM CDT DTL Glucose, S 274(H) 70 - 140 mg/dL 08/31/2024 9:38 AM CDT DTL Blood (Blood, Venous) 08/31/2024 8:35 AM CDT 08/31/2024 9:21 AM CDT Mando Fang M.D., Ph.D. LAB BLOOD ADD-ON Final Result [facility] [address] [place] [address], [facility] [address] [place] [address] * (ABNORMAL) Magnesium (08/30/2024 7:48 AM CDT) Only the most recent of7 resultswithin the time period is included. Magnesium, S 2.5(H) 1.7 - 2.3 mg/dL 08/30/2024 9:17 AM CDT DTL Blood (Blood, Venous) 08/30/2024 7:48 AM CDT 08/30/2024 8:57 AM CDT Mundo Camacho M.D. LAB BLOOD ADD-ON Final Res ult Performing Organization Address City/[facility]/ZIP Co de Phone Number [facility] [address] DTL [facility] [address] [place] [address] * Lactate for Sepsis with Reflex (08/29/2024 5:01 PM CDT) Only the most recent of2 resultswithin the time period is included. Pathologist [facility] Lactate, P 1.7 0.5 - 2.2 mmol/L 08/29/2024 5:36 PM CDT STMA Blood (Blood, Venous) 08/29/2024 5:01 PM CDT 08/29/2024 5:20 PM CDT Mando Fang M.D., Ph.D. LAB BLOOD NON ADD-ON F inal Result Performing Organization Address City/[facility] Co de Phone Number [facility] [address] [place] [address], [facility] STMA [facility] [address] [place] [address] * (TTE) 2D ECHO DOPPLER COLOR (08/29/2024 2:04 PM CDT) [facility] Ejection Fraction 68 MC CV EIMS LV End-Diastolic Diameter 37 MC CV EIMS LV End-Systolic Diameter 22 MC CV EIMS MV E Velocity 0.7 MC CV EIMS MV A Velocity 0.5 MC CV EIMS MV E/A 1.4 MC CV EIMS MV e' Velocity Medial 0.08 MC CV EIMS MV e' Velocity Lateral 0.07 MC CV EIMS MV E/e' Medial 8.8 MC CV EIMS MV E/e' Lateral 10 MC CV EIMS Left ventricular stroke volume index 43 MC CV EIMS Cardiac Output 4.84 MC CV EIMS Cardiac Index 2.52 MC CV EIMS Tricuspid Annular S? 0.05 MC CV EIMS RA Pressure 15 MC CV EIMS AV mean gradient 3 MC CV EIMS Aortic valve area 3.45 MC CV EIMS Aortic Valve Area Index 1.8 MC CV EIMS Aortic Valve Dimensionless Index 0.83 MC CV EIMS Aortic Valve Systolic Peak Velocity 1.1 MC CV EIMS Anatomical Region Laterality Modality Echocardiography 08/29/2024 12:3 7 PM CDT Impressions 08/29/2024 5:24 PM CDT Status post 23 mm On-X mechanical aortic valve prosthesis, CABG x1, PVI, and DAHIANA amputation (19-SEP-2023, [place]). Echocardiogram performed per left ventricular function protocol + assessment for constrictive pericarditis Last full echocardiogram performed 08/17/2023. LEFT VENTRICLE:Small left ventricular chamber size. Calculated 2-D linear left ventricular ejection fraction 68%. Left ventricular cardiac index 2.52 l/min/m2. Left ventricular stroke volume index 43 ml/m2. Abnormal ventricular septal motion - post-operative ??without other regional wall motion abnormalities. Indeterminate left ventricular filling pressure. RIGHT VENTRICLE:Normal right ventricular chamber size. Mild-moderately reduced right ventricular systolic function. Unable to estimate right ventricular systolic pressure due to an inadequate Doppler regurgitation signal. ATRIA:Enlarged left atrial size by visual estimate. Normal right atrial size by visual estimate. CARDIAC VALVES:Status post 23 mm On-X mechanical aortic valve prosthesis (19-SEP-2023) Aortic valve prosthesis systolic mean Doppler gradient 3 mmHg. Aortic valve prosthetic orifice area by Doppler: 3.45 cm2 Trivial (normal washing jets) aortic valve prosthetic regurgitation. No aortic valve periprosthetic regurgitation. Thickened mitral valve. Mild mitral valve regurgitation. Normal tricuspid valve. Trivial tricuspid valve regurgitation. OTHER ECHO FINDINGS:Enlarged inferior vena cava size with reduced inspiratory collapse (<50%). No intracardiac mass or thrombus, but the left atrial appendage cannot be visualized adequately with transthoracic echo to exclude thrombus in this location. Left pleural effusion. No ??pericardial effusion. For the complete report, see the Order-Level Documents. Narrative 08/29/2024 5:24 PM CDT For the complete report, see the Order-Level Documents. Final Impressions 1. Small left ventricular chamber size, calculated 2-D linear ejection fraction 68%. 2. Abnormal ventricular septal motion - post-operative ??without other regional wall motion abnormalities. 3. Normal right ventricular chamber size, mild-moderately reduced systolic function. 4. Status post 23 mm On-X mechanical aortic valve prosthesis. Mean systolic Doppler gradient 3 mmHg. 5. Trivial (normal washing jets) aortic valve prosthetic regurgitation. No periprosthetic regurgitation visualized. 6. Mild mitral valve regurgitation. 7. Enlarged inferior vena cava size with reduced inspiratory collapse (<50%). 8. No ??pericardial effusion. 9. No evidence of constrictive pericarditis. 10. Left pleural effusion. Procedure Note Tanner Stewart M.D., M.P.H. - 08/29/2024 For the complete report, see the Order-Level Documents. Final Impressions 1. Small left ventricular chamber size, calculated 2-D linear ejectionfraction 68%. 2. Abnormal ventricular septal motion - post-operative without otherregional wall motion abnormalities. 3. Normal right ventricular chamber size, mild-moderately reduced systolicfunction. 4. Status post 23 mm On-X mechanical aortic valve prosthesis. Meansystolic Doppler gradient 3 mmHg. 5. Trivial (normal washing jets) aortic valve prosthetic regurgitation. Noperiprosthetic regurgitation visualized. 6. Mild mitral valve regurgitation. 7. Enlarged inferior vena cava size with reduced inspiratory collapse(<50%). 8. No pericardial effusion. 9. No evidence of constrictive pericarditis. 10. Left pleural effusion. 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 Echocardiogram performed per leftventricular function protocol + assessment for constrictive pericarditisLast full echocardiogram performed 08/17/2023. LEFT VENTRICLE:Small left ventricular chamber size. Calculated 2-D linearleft ventricular ejection fraction 68%. Left ventricular cardiac index2.52 l/min/m2. Left ventricular stroke volume index 43 ml/m2. Abnormalventricular septal motion - post-operative without other regional wallmotion abnormalities. Indeterminate left ventricular filling pressure. RIGHT VENTRICLE:Normal right ventricular chamber size. Mild-moderatelyreduced right ventricular systolic function. Unable to estimate rightventricular systolic pressure due to an inadequate Doppler regurgitationsignal. ATRIA:Enlarged left atrial size by visual estimate. Normal right atrialsize by visual estimate. CARDIAC VALVES:Status post 23 mm On-X mechanical aortic valve prosthesis(19-SEP-2023) Aortic valve prosthesis systolic mean Doppler gradient 3mmHg. Aortic valve prosthetic orifice area by Doppler: 3.45 cm2 Trivial(normal washing jets) aortic valve prosthetic regurgitation. No aorticvalve periprosthetic regurgitation. Thickened mitral valve. Mild mitralvalve regurgitation. Normal tricuspid valve. Trivial tricuspid valveregurgitation. OTHER ECHO FINDINGS:Enlarged inferior vena cava size with reducedinspiratory collapse (<50%). No intracardiac mass or thrombus, but theleft atrial appendage cannot be visualized adequately with transthoracicecho to exclude thrombus in this location. Left pleural effusion. Nopericardial effusion. For the complete report, see the Order-Level Documents. us Mundo Camacho M.D. CV ECHO PROCEDURES Final R esult * (ABNORMAL) CBC without Differential (08/29/2024 8:12 AM CDT) Only the most recent of2 resultswithin the time period is included. Hemoglobin 13.2 13.2 - 16.6 g/dL 08/29/2024 8:57 AM CDT DTL Hematocrit 40.0 38.3 - 48.6 % 08/29/2024 8:57 AM CDT DTL Erythrocytes 4.54 4.35 - 5.65 x10(12)/L 08/29/2024 8:57 AM CDT DTL MCV 88.1 78.2 - 97.9 fL 08/29/2024 8:57 AM CDT DTL RBC Distrib Width 15.3(H) 11.8 - 14.5 % 08/29/2024 8:57 AM CDT DTL Platelet Count 118(L) 135 - 317 x10(9)/L 08/29/2024 8:57 AM CDT DTL Leukocytes 9.1 3.4 - 9.6 x10(9)/L 08/29/2024 8:57 AM CDT DTL Blood (Blood, Venous) 08/29/2024 8:12 AM CDT 08/29/2024 8:40 AM CDT Mundo Camacho M.D. LAB BLOOD ADD-ON Final Res ult Performing Organization Address City/[facility]/ZIP Co de Phone Number [facility] [address] [place] [address], [facility] [address] [place] [address] * CRP (C-Reactive Protein) (08/28/2024 7:32 AM CDT) Only the most recent of2 resultswithin the time period is included. C-Reactive Protein (CRP), S <3.0 <5.0 mg/L 08/28/2024 8:37 AM CDT DTL Blood (Blood, Venous) 08/28/2024 7:32 AM CDT 08/28/2024 8:20 AM CDT Mundo Camacho M.D. LAB BLOOD ADD-ON Final Res ult Performing Organization Address [facility] Co de Phone Number [facility] [address] [place], [place] [address] [place] [address] [address] [place] [address] * Lactate (08/27/2024 6:30 PM CDT) Pathologist [facility] Lactate, P 1.2 0.5 - 2.2 mmol/L 08/27/2024 6:52 PM CDT [facility] Blood 08/27/2024 6:30 PM CDT 08/27/2024 6:36 PM CDT Obdulio Salinas P.A.-C. LAB BLOOD NON ADD-ON Final Result Performing Organization Address City/[facility]/ZIP Co de Phone Number [facility] [address] [place] [address], [facility] STMA [facility] [address] [place] [address] * (ABNORMAL) NT-Pro B-Type Natriuretic Peptide (BNP) (08/27/2024 2:59 PM CDT) Only the most recent of2 resultswithin the time period is included. NT-Pro BNP 5662(H) <=540 pg/mL 08/27/2024 3:35 PM CDT [facility] Comment: NT-proBNP values less than 300 pg/mL [...] absence of renal failure. Blood (Blood, Venous) 08/27/2024 2:59 PM CDT 08/27/2024 3:05 PM CDT us Obdulio Salinas P.A.-C. LAB BLOOD ADD-ON Final Res ult [facility] [address] [place] [address], [facility] [address] [place] [address] * DX Chest AP or PA and Lateral 2 Views (08/27/2024 2:40 PM CDT) Only the most recent of2 resultswithin the time period is included. Anatomical Region Laterality Modality Chest, Thoracic RST LOS, Tho racic ARZ LOS, Thoracic FLA LOS N/A Digital Radiography Impressions 08/27/2024 2:55 PM CDT No significant change since 07/24/2024. Small left and trace right pleural effusions. Similar atelectasis of the left lung base. Azygous fissure. No discernible pneumothorax. Sternotomy. Mediastinal clips. Loop recorder. Cardiac valve prosthesis. Calcified aorta. Degenerative changes of the visualized skeleton. Narrative 08/27/2024 2:55 PM CDT EXAM: ??DX CHEST AP OR PA AND LATERAL 2 VIEWS Procedure Note Ras Workman M.D. - 08/27/2024 EXAM: DX CHEST AP OR PA AND LATERAL 2 VIEWS IMPRESSION: No significant change since 07/24/2024. Small left and trace right pleuraleffusions. Similar atelectasis of the left lung base. Azygous fissure. Nodiscernible pneumothorax. Sternotomy. Mediastinal clips. Loop recorder.Cardiac valve prosthesis. Calcified aorta. Degenerative changes of the visualizedskeleton. us Obdulio Salinas P.A.-C. IMG DIAGNOSTIC IMAGING PRO CEDURES Final Result * ECG 12 Lead (08/27/2024 2:18 PM CDT) Only the most recent of4 resultswithin the time period is included. Ventricular Rate ECG/Min 60 BPM MUSE WA Interval 134 ms MUSE QRSD Interval 76 ms MUSE QT Interval 426 ms MUSE QTC Interval 426 ms MUSE P [place] 28 degrees MUSE R [place] 70 degrees MUSE T Wave [place] 98 degrees MUSE 08/27/2024 2:18 PM CDT 08/27/2024 2:54 PM CDT Impressions MUSE - 08/27/2024 2:29 PM CDT Normal sinus rhythm Low voltage QRS in limb leads Cannot rule out Anteroseptal infarct Nonspecific T wave abnormality When compared with ECG of 27-Jul-2024 05:27, No significant change was found Reviewed by MARIELA Crews Narrative Procedure Note Frank Sloan M.D. - 08/27/2024 IMPRESSION: Normal sinus rhythm Low voltage QRS in limb leads Cannot rule out Anteroseptal infarct Nonspecific T wave abnormality When compared with ECG of 27-Jul-2024 05:27, No significant change was found Reviewed by MARIELA Crews Obdulio Salinas P.A.-C. ECG ORDERABLES Edited Res ult - Final MUSE NA * Leg-Emergency Medicine Image Exam (08/27/2024 2:10 PM CDT) 08/27/2024 2:07 PM CDT Narrative I[facility]S - 08/27/2024 2:10 PM CDT This order has been created and auto-finalized to support the import of images acquired without order. The clinical documentation to support these images can be found on the encounter that produced images. us Provider Not In System IMG NON RAD IMAGING PROCE DURES Final Result KARTIK NA * (ABNORMAL) Renal Function Panel (08/01/2024 7:40 [...] CDT Deven Clement M.D., M.S. LAB BLOOD ADD-ON Eliana l Result Performing Organization Address [facility] Co de Phone Number [facility] [address] [place] [address], [facility] [address] [place] [address] * (ABNORMAL) Cystatin C with Estimated GFR (08/01/2024 7:40 AM CDT) Only the most recent of2 resultswithin the time period is included. Pathologist [facility] eGFR by Cystatin C 17(L) >60 mL/min/BSA [...] CDT Shameka Feldman M.D. LAB BLOOD ADD-ON Final Res ult Performing Organization Address [facility] Co de Phone Number [facility] [address] [place] [address], [facility] [address] [place] [address] * Dipstick, Urine (07/31/2024 11:33 AM CDT) Pathologist [facility] Hemoglobin, QL, U Negative Negative 07/31/2024 12:54 [...] PM CDT Chelsea Izaguirre M.D. LAB URINE ORDERABLES Eliana l Result Performing Organization Address City/[facility]/ZIP Co de Phone Number [address] [place] [address] * Microscopic Automated (07/31/2024 11:33 AM CDT) Microscopy Normal 07/31/2024 12:54 PM CDT DTL RBC None Seen <3 /hpf 07/31/2024 12:54 PM CDT DTL WBC 1-3 /hpf 07/31/2024 12:54 PM CDT DTL Comment: ----REFERENCE VALUE---- <4 ??(Males) <11 (Females) Casts, Hyaline 4-10 /lpf 07/31/2024 12:54 PM CDT DTL Urine 07/31/2024 11:3 3 AM CDT 07/31/2024 12:11 PM CDT us Chelsea Izaguirre M.D. LAB URINE ORDERABLES Eliana l Result Performing Organization Address City/[facility]/[place] [address], [facility] [place] [address] * pH, Urine (07/31/2024 11:33 AM CDT) pH, U 6.3 4.5 - 8.0 07/31/2024 12: 53 PM CDT DTL Urine 07/31/2024 11:3 3 AM CDT 07/31/2024 12:11 PM CDT Chelsea Izaguirre M.D. LAB URINE ORDERABLES Eliana l Result Performing Organization Address City/[facility]/ZIP Co de Phone Number [facility] [address] [place] [address], [facility] [address] [place] [address] * Osmolality, Urine (07/31/2024 11:33 AM CDT) [facility] Osmolality, U 358 150 - 1150 mOsm/kg 07/31/2024 12:53 PM CDT DTL Urine 07/31/2024 11:3 3 AM CDT 07/31/2024 12:11 PM CDT Chelsea Izaguirre M.D. LAB URINE ORDERABLES Eliana l Result Performing Organization Address City/[facility] Co de Phone Number [facility] [address] [place] [address], [facility] [address] [place] [address] * (ABNORMAL) Urinalysis, with Microscopic: Urine, Midstream (07/31/2024 11:33 AM CDT) [facility] Source Urine, Urine, Midstream 07/31/2024 12:11 PM [...] 11:33 AM CDT 07/31/2024 12:11 PM CDT us Deven Clement M.D., M.S. LAB URINE ORDERABLES Final Result [facility] [address] [place] [address], [facility] DTL [facility] [address] [place] [address] * US Kidneys Bilateral with Bladder (07/31/2024 [...] withouthydronephrosis. 2. Moderate volume of perihepatic ascites. Result [facility] Deven Clement M.D., M.S. IMG US PROCEDURES Fin al Result * (ABNORMAL) Hemoglobin A1c (07/29/2024 7:34 AM [...] 7:34 AM CDT 07/29/2024 10:20 AM CDT Result [facility] Vipul Garcia P.A.-C. LAB BLOOD ADD-ON Final Result [facility] [address] DTL [facility] [address] [place] [address] * (ABNORMAL) Troponin T, 5th Generation (07/26/2024 8:27 AM CDT) Troponin T, 5th gen 110(H) <=15 ng/L 07/26/2024 9:08 AM CDT [facility] Comment:Consider acute myoca rdial injury Blood (Blood, Venous) 07/26/2024 8:27 AM CDT 07/26/2024 8:32 AM CDT Neftaly Gomez M.D. LAB BLOOD ADD-ON Final Result Performing Organization Address City/[facility]/ZIP Co de Phone Number [facility] [address] STMA [facility] [address] [place] [address] * (ABNORMAL) Morphology Eval (special smear) (07/26/2024 [...] Reviewed by: Renetta 07/26/2024 9:28 AM CDT DH Blood (Blood, Venous) 07/26/2024 7:21 AM CDT 07/26/2024 7:55 AM CDT us Yasmine Garduno M.D., Ph.D. LAB BLOOD ADD-ON Eliana l Result Performing Organization Address City/[facility]/ZIP Co de Phone Number [facility] [address] [place] [address] * Iron and Total Iron-Binding Capacity (07/26/2024 7:21 AM CDT) Iron 53 50 - 150 mcg/dL 07/26/2024 8:46 AM CDT DTL Total Iron Binding Capacity 270 250 - 400 mcg/dL 07/26/2024 8:46 AM CDT DTL Percent Saturation 20 14 - 50 % 07/26/2024 8:46 AM CDT DTL Blood (Blood, Venous) 07/26/2024 7:21 AM CDT 07/26/2024 8:10 AM CDT us Yasmine Garduno M.D., Ph.D. LAB BLOOD ADD-ON Eliana l Result [facility] [address] [place] [address], [facility] [address] [place] [address] * Fibrinogen (07/26/2024 7:21 AM CDT) Pathologist [facility] Fibrinogen, P 385 200 - 393 mg/dL 07/26/2024 8:23 AM CDT DTL Blood (Blood, Venous) 07/26/2024 7:21 AM CDT 07/26/2024 7:56 AM CDT Yasmine Garduno M.D., Ph.D. LAB BLOOD ADD-ON Eliana l Result [facility] [address] [place] [address], [facility] [address] [place] [address] * Reticulocytes (07/26/2024 7:21 AM CDT) [facility] Reticulocytes, B 1.46 0.60 - 2.71 % 07/26/2024 8:09 AM CDT DTL Absolute Reticulocyte 62.8 30.4 - 110.9 x10(9)/L 07/26/2024 8:09 AM CDT DT Blood (Blood, Venous) 07/26/2024 7:21 AM CDT 07/26/2024 7:55 AM CDT Yasmine Garduno M.D., Ph.D. LAB BLOOD ADD-ON Eliana l Result [facility] [address] [place] [address], [facility] [address] [place] [address] * (ABNORMAL) Haptoglobin (07/26/2024 7:21 AM CDT) Pathologist [facility] Haptoglobin, S <14(L) 30 - 200 mg/dL 07/29/2024 8:13 AM CDT [facility] Blood (Blood, Venous) 07/26/2024 7:21 AM CDT 07/28/2024 6:34 AM CDT Yasmine Garduno M.D., Ph.D. LAB BLOOD ADD-ON Eliana l Result [facility] [address] [place] [address] [facility] [address] [place] [address] * Folate (07/26/2024 7:21 AM CDT) Folate, S 11.6 >=4.0 mcg/L 07/28/2024 8: 00 AM CDT DTL Blood (Blood, Venous) 07/26/2024 7:21 AM CDT 07/26/2024 8:10 AM CDT Yasmine Garduno M.D., Ph.D. LAB BLOOD ADD-ON Eliana l Result Performing Organization Address City/[facility]/ZIP Co de Phone Number [facility] [address] [place] [address] * Ferritin (07/26/2024 7:21 AM CDT) Ferritin, S 179 31 - 409 mcg/L 07/26/2024 8:46 AM CDT DTL Blood (Blood, Venous) 07/26/2024 7:21 AM CDT 07/26/2024 8:10 AM CDT Yasmine Garduno M.D., Ph.D. LAB BLOOD ADD-ON Eliana l Result [facility] [address] [facility] [address] [place] [address] * (ABNORMAL) Vitamin B12 Assay (07/26/2024 7:21 [...] CDT Yasmine Garduno M.D., Ph.D. LAB BLOOD ADD-ON Eliana l Result [facility] [address] [place] [address], [facility] [address] [place] [address] * (ABNORMAL) Troponin T, 6h, 5th Gen (07/25/2024 7:26 PM CDT) Only the most recent of2 resultswithin the time period is included. Pathologist [facility] Troponin T, 6 hr, 5th gen 106(H) <=15 ng/L 07/25/2024 8:07 PM CDT [facility] Comment:Consider acute myoca rdial injury 6H Delta % SEE COMMENT % 07/25/2024 8:07 PM CDT [facility] Comment:Test cancelled. Spec imen not received within delta timeframe. 6H Delta Interp SEE COMMENT 07/25/20 24 8:07 PM CDT [facility] Comment:Test cancelled. Spec imen not received within delta timeframe. Blood 07/25/2024 7:26 PM CDT 07/25/2024 7:33 PM CDT Barbara Jay, B.Ch. LAB BLOOD TROPON IN Final Result Performing Organization Address City/[facility]/ZIP Co de Phone Number [facility] [address] [place] [address] * (ABNORMAL) Troponin T, 2 Hour with [...] 3:47 PM CDT Barbara Jay, B.Ch. LAB BLOOD TROPON IN Final Result Performing Organization Address [facility] Co de Phone Number [facility] [address] [place] [address] * (TTE) 2D ECHO DOPPLER COLOR (07/25/2024 [...] CABG x1, PVI, and DAHIANA amputation (19-SEP-2023, [place]). 3. Small left ventricular chamber size. Abnormal [...] CABG x1, PVI, and DAHIANA amputation (19-SEP-2023, [place]). Echocardiogram performed per left ventricular function protocol [...] prosthesis, CABG x1,PVI, and DAHIANA amputation (19-SEP-2023, [place]). 3. Small left ventricular chamber size. Abnormal [...] prosthesis, CABG x1, PVI,and DAHIANA amputation (19-SEP-2023, [place]). Echocardiogram performed per leftventricular function protocol + [...] the complete report, see the Order-Level Documents. us Yasmine Garduno M.D., Ph.D. CV ECHO PROCEDURES Ed ited Result - Final * (ABNORMAL) Troponin T, Baseline with 2 Hour/6 Hour Reflex Biomarker Panel (07/25/2024 1:50 PM CDT) Only the most recent of2 resultswithin the time period is included. Troponin T, Baseline, 5th gen 120(H) <=15 ng/L 07/25/2024 2:22 PM CDT [facility] Comment:Consider acute myoca rdial injury Blood (Blood, Venous) 07/25/2024 1:50 PM CDT 07/25/2024 2:05 PM CDT Neftaly Gomez M.D. LAB BLOOD TROPONIN Final Result Performing Organization Address City/[facility]/ZIP Co de Phone Number [facility] [address] [place] [address], [facility] [address] [place] [address] * Sedimentation Rate (07/25/2024 1:49 PM CDT) [facility] Sedimentation Rate, B 13 3 - 28 mm/h 07/25/2024 4:17 PM CDT DTL Blood (Blood, Venous) 07/25/2024 1:49 PM CDT 07/25/2024 2:36 PM CDT Neftaly Gomez M.D. LAB BLOOD ADD-ON Final Result Performing Organization Address [facility] Co de Phone Number [facility] [address] [place] [address], [facility] [address] [place] [address] * XR chest 2V-Outside Chest Xray (06/04/2024 [...] overread is required please follow defined workflow.?? us Provider Not In System IMG DIAGNOSTIC IMAGING WA OCEDURES Final Result Performing Organization Address City/[facility]/ZIP Co de Phone Number [facility] NA * Lipid Panel (12/24/2023 9:44 AM [employer]ER) Triglycerides 68 mg/dL 12/24/2023 1:00 PM [employer] [facility] [facility] DTL Comment: ----REFERENCE VALUE---- Normal: <150 mg/dL Borderline High: 150-199 mg/dL High: 200-499 mg/dL Very High: > or =500 mg/dL Cholesterol, Total 107 mg/dL 2023 1:00 PM [employer] [facility] [facility] DTL Comment: ----REFERENCE VALUE---- Desirable: < 200 mg/dL Borderline High: 200 - 239 mg/dL High: > or = 240 mg/dL Cholesterol, LDL, Calculated 50 mg/dL 12/24/2023 1:00 PM [employer] [facility] DTL Comment: ----REFERENCE VALUE---- Desirable: <100 mg/dL Above Desirable: 100-129 mg/dL Borderline High: 130-159 mg/dL High: 160-189 mg/dL Very High: >=190 mg/dL ----ADDITIONAL INFORMATION---- LDL cholesterol calculated using the Igelsias/NIH equation. Cholesterol, HDL, S 42 >=40 mg/dL 12/24/2023 1:00 PM DR[employer] [facility] [facility]ER DTL Cholesterol, Non-HDL, Calculated 65 mg/dL 12/24/2023 1:00 PM [employer] DTL Comment: ----REFERENCE VALUE---- Desirable: <130 mg/dL Above Desirable: 130-159 mg/dL Borderline High: 160-189 mg/dL High: 190-219 mg/dL Very High: > or =220 mg/dL Fasting (8 HR or more) yes 12/24/2023 10:18 AM [employer]IRE [employer]ER DTL Blood (Blood, Venous) 12/24/2023 9:44 AM [employer] WIRE HANGER 12/24/2023 10:18 AM [employer]ER Gudelia Soto M.D. LAB BLOOD ADD-ON Final Result Performing Organization Address City/[facility]/ZIP Co de Phone Number [facility] [address] [place] [address], [facility] DTL [facility] [address] [place] [address] * Colonoscopy (11/21/2022) EXT Colonoscopy Normal - See Scanned Report for Details Normal - See Scanned Report for Details, HIMS - Report Received and Scanned us Historical Provider GI PROCEDURE ORDERABLES Eliana l Result from Last 3 Months or Most Recently Relevant to Health Maintenance Insurance [employer] Advance Directives For more information, please contact: [phone] * Full Code (Latest Code Status on File) Date Activated Date Inactivated Comments 08/27/2024 5:51 PM 08/31/2024 5:20 PM Question Answer Comments Full Code: Discussed * Full Code Date Activated Date Inactivated Comments 07/25/2024 1:28 [...] Answer Comments Full Code: Discussed Care Teams Compugraph Operator Relationship Specialty Start Date End Date Elsewhere, Pcp PCP - General Internal Medicine 07/28/24
--- OUTSIDE RECORDS SUMMARY | 2024-09-02 15:12 | XMS_ITS | Referral Summary ---
Author Organization [facility] Address [address] [place] [address] Care Team Providers Care Package Clerk Name Role Phone Elsewhere, Pcp Primary Care Provider Unavailabl e Source Comments Patient records contain information from all sites at [facility]. For routine questions regarding patient records, call [phone] during business hours, M-F 8:00 AM - 5:00 PM Central Time. Record requests for emergency care only can be directed to [phone] at any time.[facility] Encounters Date Type Department Care Team Description 09/02/2024 Clinical Communication Department of Cardiovascular Medicine in [place], [place] [address] [place] [phone] Mando Fang M.D., Ph.D. Post Hospital Follow-up 09/02/2024 Clinical Communication Department of Cardiovascular Medicine in [place], [place] [address] [place] [address] Eneida Loya, R.N. 08/31/2024 9:50 AM CDT Ancillary Procedure Department of Nursing Arrived 08/31/2024 9:45 AM CDT Ancillary Procedure Department of Nursing Arrived 08/27/2024 1:37 PM CDT - 08/31/2024 3:15 PM CDT Hospital Encounter [facility], [facility], Fifth Floor [address] [place] [phone] Obdulio Salinas P.A.-C. Cullen, Michael W, M.D. Bois, John P, M.D. Vasile, Vlad C, M.D., Ph.D. Edema Leg (Primary Dx); Decline Functional Status [R53.81] Discharge Disposition: Home or Self Care 08/28/2024 8:35 AM CDT Ancillary Procedure Department of Nursing 08/28/2024 8:30 AM CDT Ancillary Procedure Department of Nursing 08/27/2024 2:10 PM CDT Ancillary Procedure Department of Emergency Medicine 08/06/2024 Clinical Communication Division of Endocrinology in [address] [phone] Emerson Goddard R.N. Communication 08/05/2024 Clinical Communication Division of Endocrinology in [address] [phone] Lola Payan R.N. Dose Adjustment 08/04/2024 Clinical Communication Division of Endocrinology in [address] [phone] Emerson Goddard R.N. Communication 07/24/2024 4:49 PM CDT - 08/01/2024 2:08 PM CDT Hospital Encounter [facility], [facility], Fourth Floor [address] [place] [phone] Fanny Goodwin M.D., M.S. Haily Campbell APRN, C.N.P., D.N.P. Josee Devlin P.A.-C., M.SYasmine Shah M.D., Ph.D. Deven Clement M.D., M.S. Shameka Feldman M.D. Fanny Zelaya M.D. Edema Leg (Primary Dx); Shortness Of Breath; Effusion Pleural; Diabetes Mellitus Type 2 (HCC); Prosthesis Aortic Valve Discharge Disposition: Home or Self Care 07/30/2024 9:50 AM CDT Ancillary Procedure Department of Nursing 07/30/2024 9:45 AM CDT Ancillary Procedure Department of Nursing 07/30/2024 Clinical Communication [facility] [address] [place] [phone] Barbara Valencia M.B., B.Ch. 07/28/2024 10:40 AM CDT Ancillary Procedure Department of Nursing 07/25/2024 1:35 PM CDT Ancillary Procedure Department of Nursing 07/25/2024 1:00 PM CDT Ancillary Procedure Department of Nursing 06/11/2024 1:30 PM CDT External Outreach Division of Nephrology and Hypertension in [place], [place] [address] [place] [address] Atif Nance Jr., D.O. 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 200 each 08/01/20 2:47 PM CDT 2024 Active alcohol swabs pads, medicated Use as needed for diabetes control 1500 each 3 08/01/20 2:47 PM CDT Active blood sugar diagnostic strips 2 test daily. 200 test 08/01/20 2:47 PM CDT 2024 Active blood-glucose meter misc Test as [...] daily. 100 each 08/01/20 2:47 PM CDT 2024 Active warfarin (Jantoven) 1 mg tabletIndicat [...] 30 tablet 08/01/20 24 2:47 PM CDT 024 2023 torsemide (Demadex) 20 mg tablet Take 1 tablet (20 mg total) by mouth daily. 30 tablet 024 2023 Discontinued(S top Taking at Discharge) sulfamethoxaz ole-trimethop rim (Bactrim) 400-80 mg per tabletIndicat ions:Prophyla xis, medical Take 1 tablet by mouth daily for 28 doses Indications: Prophylaxis, medical. 28 tablet 08/01/20 2:47 PM CDT 024 2023 Discontinued cefdinir (Omnicef) 300 mg capsule [...] Edema Leg 07/25/2024 Hyperparathyroidism Renal Secondary 06/11/2024 Naprapath (Current) Anticoagulant Treatment 09/13 Bypass Coronary Artery Graft Status Post 023 Cardiac Surgery Status Post 09/24/2023 Effusion Pleural 09/24/2023 Device Cardiac Status Post 09/23/2023 Overview (09/23/2023): Previously placed loop recorder Therapy Usp Antiplatelet 09/22/2023 Coronary Arterial Bypass Graft Status [...] drink = 0.6 oz pur e alcohol) [facility] [employer] Answer Date Recorded In the past 12 [...] [facility] live 08/27/2024 Sex and Gender [...] 2:45 PM CDT Appointment Department of Radiology, [facility], in [place], [place] [address] [place] [phone] Deven Clement M.D., M.S. [address] [place] [phone] 09/08/2024 7:15 AM CDT Clinical Communication Virtual Review in [place], [place] [address] [place] [address] 09/16/2024 1:00 PM ACTIVATED SLUDGE OPERATOR Appointment Department of Radiology, [facility], in [place], [place] [address] [place] [phone] Deven Clement M.D., M.S. [address] [place] [phone] 09/16/2024 1:20 PM ACTIVATED SLUDGE OPERATOR Appointment Department of Laboratory Medicine and Pathology, [facility] in [place], [place] [address] [place] [phone] Deven Clement M.D., M.S. [address] [place] [phone] 09/16/2024 1:40 PM ACTIVATED SLUDGE OPERATOR Ancillary Procedure Department of Cardiovascular Medicine in [place], [place] [address] [place] [phone] Deven Clement M.D., M.S. [address] [place] [phone] 09/16/2024 4:00 PM ACTIVATED SLUDGE OPERATOR Comprehensive Visit Department of Cardiovascular Medicine in [address] [phone] Keagan Tellez M.D. [address] [place] [phone] Medical Devices Implanted Type Area Deck Worker Device Identifier Shelf Expiration Date Model / Serial / Lot Vlv Aort Cnf [facility] 23 - [id number] - [id number] Implanted:Qty: 1 on 09/19/2023 by Sarah Miller M.D., M.P.H. at [facility] Cardiac Valve Prosthesis N/A: Aortic Valve Artivion (Prev. StentysLife) 2028 ONXACE-2 3 / [id number] / Description:MRI conditional up to 3T, normal mode, per logistics planner. [email or web address] _All.pdf AFK Clp Hrzn Ti 24 Clp Akhil - [id number] Implanted:Qty: 1 on 09/19/2023 by Sarah Miller M.D., M.P.H. at [facility] Hardware e.g. pins/screws/r ods N/A: Chest [employer] [id number] 04/29/2028 [id number] / / [id number] Clp Hrzn Ti 6 Clp Akhil - [id number] Implanted:Qty: 1 on 09/19/2023 by Sarah Miller M.D., M.P.H. at [facility] Hardware e.g. pins/screws/r ods N/A: Chest [employer] [id number] / / Clp Hrzn Ti 24 Clp Sm Red - [id number] Implanted:Qty: 1 on 09/19/2023 by Sarah Miller M.D., M.P.H. at [facility] Hardware e.g. pins/screws/r ods N/A: Chest [employer] [id number] / / Clp Hrzn Ti 24 Clp Sm Red - [id number] Implanted:Qty: 1 on 09/19/2023 by Sarah Miller M.D., M.P.H. at [facility] Hardware e.g. pins/screws/r ods N/A: Chest [employer] [id number] / / Morenci Surg Tfln 1x6 - [id number] Implanted:Qty: 1 on 09/19/2023 by Sarah Miller M.D., M.P.H. at [facility] Hardware e.g. pins/screws/r ods N/A: Chest [employer] [id number] / / Medtronic Linq-05/05/2019 Implanted:06/02/2019 by Chet Badillo M.D., Ph.D. (Quantity not on file) Implantable Loop Recorder Chest Medtronic [id number] / [id number] / Description:MR Conditional 1 .5T and [...] LIPID PANEL, S Routine 12/24/2023 9:44 AM ACTIVATED SLUDGE OPERATOR Stenosis Aortic Valve Acquired COLONOSCOPY Routine 11/21/2022 [...] LAB POCT ORDERABLES-MANUAL Eliana l Result POC [facility] [address] [place] [address], [facility] PCLX [facility] POC [address] [place] [address] * Leg, left-Nursing Image Exam (08/31/2024 9:47 [...] In System IMG NON RAD IMAGING PROCE TERI Final Result Performing Organization Address [facility] de Phone Number IIMS NA * (ABNORMAL) Prothrombin Time (PT) (08/31/2024 [...] ADD-ON Final Res ult Performing Organization Address [facility] [place] [address], [facility] [place] [address] * (ABNORMAL) CBC with Differential, Blood (08/31/2024 [...] 8:35 AM CDT 08/31/2024 9:02 AM CDT Mando Fang M.D., Ph.D. LAB BLOOD ADD-ON Final Result [facility] [address] [place] [address], [facility] DTL [facility] [address] [place] [address] [facility] [address] [place] [address] * (ABNORMAL) Basic Metabolic Panel (08/31/2024 8:35 AM CDT) Only the most recent of15 resultswithin the time period is included. [facility] Potassium, S 4.9 3.6 - 5.2 mmol/L [...] M.D., Ph.D. LAB BLOOD ADD-ON Final Result [facility] [address] [place] [address], [facility] [address] [place] [address] * (ABNORMAL) Magnesium (08/30/2024 7:48 AM CDT) Only the most recent of7 resultswithin the time period is included. Magnesium, S 2.5(H) 1.7 - 2.3 mg/dL 08/30/2024 9:17 AM CDT DTL Blood (Blood, Venous) 08/30/2024 7:48 AM CDT 08/30/2024 8:57 AM CDT us Mundo Camacho M.D. LAB BLOOD ADD-ON Final Res ult Performing Organization Address City/[facility]/ZIP Co de Phone Number [facility] [address] [place]TL [facility] [address] [place] [address] * Lactate for Sepsis with Reflex (08/29/2024 5:01 PM CDT) Only the most recent of2 resultswithin the time period is included. Pathologist [facility] Lactate, P 1.7 0.5 - 2.2 mmol/L 08/29/2024 5:36 PM CDT [facility] Blood (Blood, Venous) 08/29/2024 5:01 PM CDT 08/29/2024 5:20 PM CDT Mando Fang M.D., Ph.D. LAB BLOOD NON ADD-ON F inal Result Performing Organization Address [facility] Co de Phone Number [facility] [address] [place] [address], [facility] STMA [facility] [address] [place] [address] * (TTE) 2D ECHO DOPPLER COLOR (08/29/2024 2:04 PM CDT) [facility] Ejection Fraction 68 MC CV EIMS [...] CABG x1, PVI, and DAHIANA amputation (19-SEP-2023, [place]). Echocardiogram performed per left ventricular function protocol [...] prosthesis, CABG x1, PVI,and DAHIANA amputation (19-SEP-2023, [place]). Echocardiogram performed per leftventricular function protocol + [...] the complete report, see the Order-Level Documents. Mundo Camacho M.D. CV ECHO PROCEDURES Final [...] M.D. LAB BLOOD ADD-ON Final Res ult [facility] [address] [place] [address], [facility] 200 [place] [address] * CRP (C-Reactive Protein) (08/28/2024 7:32 AM CDT) Only the most recent of2 resultswithin the time period is included. [facility] C-Reactive Protein (CRP), S <3.0 <5.0 mg/L 08/28/2024 8:37 AM CDT DT Blood (Blood, Venous) 08/28/2024 7:32 AM CDT 08/28/2024 8:20 AM CDT Mundo Camacho M.D. LAB BLOOD ADD-ON Final Res ult Performing Organization Address City/[facility]/ZIP Co de Phone Number [facility] [address] [place] [address], [facility] [address] [place] [address] * Lactate (08/27/2024 6:30 PM CDT) [facility] Lactate, P 1.2 0.5 - 2.2 mmol/L 08/27/2024 6:52 PM CDT [facility] Blood 08/27/2024 6:30 PM CDT 08/27/2024 6:36 PM CDT Obdulio Salinas P.A.-C. LAB BLOOD NON ADD-ON Final Result [facility] [address] [place] [address], [facility] [address] [place] [address] * (ABNORMAL) NT-Pro B-Type Natriuretic Peptide (BNP) (08/27/2024 2:59 PM CDT) Only the most recent of2 resultswithin the time period is included. [facility] NT-Pro BNP 5662(H) <=540 pg/mL 08/27/2024 3:35 PM CDT [facility] Comment: NT-proBNP values less [...] P.A.-C. LAB BLOOD ADD-ON Final Res ult [facility] [address] [place] [address], [facility] [address] [place] [address] * DX Chest AP or PA and [...] Calcified aorta. Degenerative changes of the visualizedskeleton. Obdulio Salinas P.A.-C. IMG DIAGNOSTIC IMAGING PRO CEDURES Final Result * ECG 12 Lead (08/27/2024 2:18 PM CDT) Only the most recent of4 resultswithin the time period is included. Ventricular Rate ECG/Min 60 BPM MUSE VA Interval 134 ms MUSE QRSD Interval 76 ms MUSE QT Interval 426 ms MUSE QTC Interval 426 ms MUSE P Fonda 28 degrees MUSE R Fonda 70 degrees MUSE T Wave Fonda 98 degrees MUSE 08/27/2024 2:18 PM CDT [...] No significant change was found Reviewed by MARILEA Crews Obdulio Salinas P.A.-C. ECG ORDERABLES Edited [...] In System IMG NON RAD IMAGING PROCE TERI Final Result IIMS NA * (ABNORMAL) Renal Function Panel (08/01/2024 [...] ADD-ON Eliana l Result Performing Organization Address [facility] Co de Phone Number [facility] [address] [place] [address], [facility] [address] [address] * (ABNORMAL) Cystatin C with Estimated GFR (08/01/2024 7:40 AM CDT) Only the most recent of2 resultswithin the time period is included. Pathologist [facility] eGFR by Cystatin C 17(L) >60 [...] ADD-ON Final Res ult Performing Organization Address [facility]/ZIP Co de Phone Number [facility] [address] [place] [address], [facility] DTL [facility] [address] [place] [address] * Dipstick, Urine (07/31/2024 11:33 AM CDT) [...] ORDERABLES Eliana l Result Performing Organization Address [facility] Co de Phone Number [facility] [address] [place] [address], [facility] [address] [place] [address] * Microscopic Automated (07/31/2024 11:33 AM CDT) [...] ORDERABLES Eliana l Result Performing Organization Address [facility] Co de Phone Number [facility] [address] [place] [address], [facility] DTL [facility] [address] [place] [address] * pH, Urine (07/31/2024 11:33 AM CDT) pH, U 6.3 4.5 - 8.0 07/31/2024 12: 53 PM CDT DTL Urine 07/31/2024 11:3 3 AM CDT 07/31/2024 12:11 PM CDT us Chelsea Izaguirre M.D. LAB URINE ORDERABLES Eliana l Result Performing Organization Address City/[facility]/ZIP Co de Phone Number [facility] [address] [place] [address], [address] [address] * Osmolality, Urine (07/31/2024 11:33 AM CDT) Pathologist [facility] Osmolality, U 358 150 - 1150 mOsm/kg 07/31/2024 12:53 PM CDT DTL Urine 07/31/2024 11:3 3 AM CDT 07/31/2024 12:11 PM CDT us Chelsea Izaguirre M.D. LAB URINE ORDERABLES Eliana l Result Performing Organization Address [facility] Co de Phone Number [facility] [address] [place] [address], [address] [address] * (ABNORMAL) Urinalysis, with Microscopic: Urine, Midstream [...] CDT Deven Clement M.D., M.S. LAB URINE ORDERABLES Final Result [facility] [address] [place] [address], [place] DTL [facility] [address] [place] [address] * US Kidneys Bilateral with Bladder (07/31/2024 [...] ascites. Deven Clement M.D., M.S. IMG US PROCEDURES Fin al Result * (ABNORMAL) Hemoglobin A1c (07/29/2024 7:34 AM CDT) Hemoglobin A1c, B 7.5(H) 4.0 - 5.6 % 07/29/2024 10:45 AM CDT DT Comment: Hemoglobin A1c values greater than or equal to 6.5 percent are diagnostic for diabetes mellitus. ??Diagnosis should be confirmed by repeat testing. ??In diabetic patients, HbA1c goals should be discussed with healthcare provider. Blood (Blood, Venous) 07/29/2024 7:34 AM CDT 07/29/2024 10:20 AM CDT Vipul Garcia P.A.-C. LAB BLOOD ADD-ON Final Result Performing Organization Address [facility]/ZIP Co de Phone Number [address] [place] [address] * (ABNORMAL) Troponin T, 5th Generation (07/26/2024 8:27 AM CDT) Pathologist [facility] Troponin T, 5th gen 110(H) <=15 ng/L 07/26/2024 9:08 AM CDT [facility] Comment:Consider acute myoca rdial injury Blood (Blood, Venous) 07/26/2024 8:27 AM CDT 07/26/2024 8:32 AM CDT Neftaly Gomez M.D. LAB BLOOD ADD-ON Final Result [facility] [address] [place] [address] * (ABNORMAL) Morphology Eval (special smear) (07/26/2024 7:21 AM CDT) Pathologist [facility] Neutrophilic Segs and Bands 85(H) 50 - 75 % 07/26/2024 9:28 AM CDT DH Lymphocytes 10(L) 18 - 42 % 07/26/2024 [...] ADD-ON Eliana l Result Performing Organization Address City/[facility]/ZIP Co de Phone Number [facility] [address] [place] [address] * Iron and Total Iron-Binding Capacity (07/26/2024 [...] ADD-ON Eliana l Result Performing Organization Address City/[facility]/ZIP Co de Phone Number [facility] [address] DTL [facility] [address] [place] [address] * Fibrinogen (07/26/2024 7:21 AM CDT) Pathologist [facility] Fibrinogen, P 385 200 - 393 mg/dL 07/26/2024 8:23 AM CDT DT Blood (Blood, Venous) 07/26/2024 7:21 AM CDT 07/26/2024 7:56 AM CDT Yasmine Garduno M.D., Ph.D. LAB BLOOD ADD-ON Eliana l Result Performing Organization Address City/[facility]/ZIP Co de Phone Number [facility] [address] [place] [address] * Reticulocytes (07/26/2024 7:21 AM CDT) Pathologist [facility] Reticulocytes, B 1.46 0.60 - 2.71 % 07/26/2024 8:09 AM CDT DT Absolute Reticulocyte 62.8 30.4 - 110.9 x10(9)/L 07/26/2024 8:09 AM CDT [facility] Blood (Blood, Venous) 07/26/2024 7:21 AM CDT 07/26/2024 7:55 AM CDT Yasmine Garduno M.D., Ph.D. LAB BLOOD ADD-ON Eliana l Result Performing Organization Address [facility] Co de Phone Number [facility] [address] [place], [place] [address] [place] [address] [address] [place] [address] * (ABNORMAL) Haptoglobin (07/26/2024 7:21 AM CDT) Haptoglobin, S <14(L) 30 - 200 mg/dL 07/29/2024 8:13 AM CDT [facility] Blood (Blood, Venous) 07/26/2024 7:21 AM CDT 07/28/2024 6:34 AM CDT Yasmine Garduno M.D., Ph.D. LAB BLOOD ADD-ON Eliana l Result [facility] [address] [place] [address] [facility] [address] [place] [address] * Folate (07/26/2024 7:21 AM CDT) Pathologist [facility] Folate, S 11.6 >=4.0 mcg/L 07/28/2024 8: 00 AM CDT DTL Blood (Blood, Venous) 07/26/2024 7:21 AM CDT 07/26/2024 8:10 AM CDT Yasmine Garduno M.D., Ph.D. LAB BLOOD ADD-ON Eliana l Result Performing Organization Address City/[facility]/ZIP Co de Phone Number [facility] [address] [facility] [address] [place] [address] * Ferritin (07/26/2024 7:21 AM CDT) [facility] Ferritin, S 179 31 - 409 mcg/L 07/26/2024 8:46 AM CDT DTL Blood (Blood, Venous) 07/26/2024 7:21 AM CDT 07/26/2024 8:10 AM CDT Yasmine Garduno M.D., Ph.D. LAB BLOOD ADD-ON Eliana l Result [facility] [address] [place] [address] * (ABNORMAL) Vitamin B12 Assay (07/26/2024 7:21 AM CDT) [facility] Vitamin B12 Assay, S 1206(H) 180 [...] ADD-ON Eliana l Result Performing Organization Address City/[facility]/ZIP Co de Phone Number [facility] [address] [place] [address] * (ABNORMAL) Troponin T, 6h, 5th Gen [...] TROPON IN Final Result Performing Organization Address City/[facility]/ZIP Co de Phone Number [facility] [address] [place] [address], [facility] STMA [facility] [address] [place] [address] * (ABNORMAL) Troponin T, 2 Hour with 6 Hour Reflex, 5th Gen (07/25/2024 3:42 PM CDT) Only the most recent of2 resultswithin the time period is included. Pathologist [facility] Troponin T, 2 hr, 5th gen [...] TROPON IN Final Result Performing Organization Address City/State/[facility] Co de Phone Number [facility] [address] [place] [address], [facility] [address] [place] [address] * (TTE) 2D ECHO DOPPLER COLOR (07/25/2024 3:24 PM CDT) [facility] Ejection Fraction 65 MC CV EIMS [...] CABG x1, PVI, and DAHIANA amputation (19-SEP-2023, [place]). 3. Small left ventricular chamber size. Abnormal [...] CABG x1, PVI, and DAHIANA amputation (19-SEP-2023, [place]). Echocardiogram performed per left ventricular function protocol [...] prosthesis, CABG x1,PVI, and DAHIANA amputation (19-SEP-2023, [place]). 3. Small left ventricular chamber size. Abnormal [...] prosthesis, CABG x1, PVI,and DAHIANA amputation (19-SEP-2023, [place]). Echocardiogram performed per leftventricular function protocol + [...] Documents. Yasmine Garduno M.D., Ph.D. CV ECHO PROCEDURES [...] BLOOD TROPONIN Final Result Performing Organization Address [facility] Co de Phone Number [facility] [address] STMA [facility] [address] [place] [address] * Sedimentation Rate (07/25/2024 1:49 PM CDT) Sedimentation Rate, B 13 3 - 28 mm/h 07/25/2024 4:17 PM CDT DTL Blood (Blood, Venous) 07/25/2024 1:49 PM CDT 07/25/2024 2:36 PM CDT Neftaly Gomez M.D. LAB BLOOD ADD-ON Final Result Performing Organization Address [facility] de Phone Number [facility] [address] DTL [facility] [address] [place] [address] * XR chest 2V-Outside Chest Xray (06/04/2024 [...] workflow.?? Provider Not In System IMG DIAGNOSTIC IMAGING VA OCEDURES Final Result Performing Organization Address City/[facility] Co de Phone Number IIMS NA * Lipid Panel (12/24/2023 9:44 AM ACTIVATED SLUDGE OPERATOR) Triglycerides 68 mg/dL 12/24/2023 1:00 PM ACTIVATED SLUDGE OPERATOR DTL Comment: ----REFERENCE VALUE---- Normal: <150 mg/dL Borderline High: 150-199 mg/dL High: 200-499 mg/dL Very High: > or =500 mg/dL Cholesterol, Total 107 mg/dL 2023 1:00 PM ACTIVATED SLUDGE OPERATOR DTL Comment: ----REFERENCE VALUE---- Desirable: < 200 mg/dL Borderline High: 200 - 239 mg/dL High: > or = 240 mg/dL Cholesterol, LDL, Calculated 50 mg/dL 12/24/2023 1:00 PM ACTIVATED SLUDGE OPERATOR DTL Comment: ----REFERENCE VALUE---- Desirable: <100 mg/dL Above Desirable: 100-129 mg/dL Borderline High: 130-159 mg/dL High: 160-189 mg/dL Very High: >=190 mg/dL ----ADDITIONAL INFORMATION---- LDL cholesterol calculated using the Iglesias/NIH equation. Cholesterol, HDL, S 42 >=40 mg/dL 12/24/2023 1:00 PM ACTIVATED SLUDGE OPERATOR DTL Cholesterol, Non-HDL, Calculated 65 mg/dL 12/24/2023 1:00 PM ACTIVATED SLUDGE OPERATOR DTL Comment: ----REFERENCE VALUE---- Desirable: <130 mg/dL Above Desirable: 130-159 mg/dL Borderline High: 160-189 mg/dL High: 190-219 mg/dL Very High: > or =220 mg/dL Fasting (8 HR or more) yes 12/24/2023 10:18 AM ACTIVATED SLUDGE OPERATOR DTL Blood (Blood, Venous) 12/24/2023 9:44 AM ACTIVATED SLUDGE OPERATOR 12/24/2023 10:18 AM ACTIVATED SLUDGE OPERATOR Gudelia Soto M.D. LAB BLOOD ADD-ON Final Result [facility] [address] [place] [address], [facility] [place] [address] [place] [address] * Colonoscopy (11/21/2022) EXT Colonoscopy Normal - See Scanned Report for Details Normal - See Scanned Report for Details, HIMS - Report Received and Scanned Historical Provider GI PROCEDURE ORDERABLES Eliana l Result from Last 3 Months or Most Recently Relevant to Health Maintenance Insurance [employer] Advance Directives For more information, please contact: [phone] * Full Code (Latest Code Status on [...] Answer Comments Full Code: Discussed Care Teams Package Clerk Relationship Specialty Start Date End Date Elsewhere, Pcp PCP - General Internal Medicine 07/28/24
--- OUTSIDE RECORDS SUMMARY | 2024-09-02 15:12 | XMS_ITS | Encounter Summary ---
Author Organization [facility] Address [address] [place] [id number] Care Team Providers Care Emergency Room Specialist Name Role Phone Elsewhere, Pcp Primary Care Provider Unavailabl e Reason for Visit * Reason Comments Leg Swelling * Auth/Cert (Routine) Specialty Diagnoses / Procedures Referred By Contac t Referred To Contact Diagnoses Edema Leg Procedures EMERGENCY Obdulio Salinas P.A.-C. [address] [place] [phone] Phone: tel: fax: Referral ID Status Reason Start Date Expiration Date Visits Re quested Visits Authorized [id number] 1 1 Encounter Details Date Type Department Care Team (Latest Contact Info) Description 08/27/2024 1:37 PM CDT - 08/31/2024 3:15 PM CDT Hospital Encounter [facility], [facility], [facility], Fifth Floor [address] [place] [address] [phone] Obdulio Salinas P.A.-CJarrett [address] [place] [phone] Mudno Camacho M.D. [address] [place] [phone] Chet Mcduffie M.D. [address] [place] [phone] Mando Fang M.D., Ph.D. [address] [place] [phone] Edema Leg (Primary Dx); Decline Functional Status [R53.81] Discharge Disposition: Home or Self Care Social [...] a [facility] place to live 08/27/2024 Sex and [...] Mass Index 27.98 08/27/2024 4:28 PM CDT documented in this encounter Discharge Summaries * Kev Ruff M.D., Ph.D. - 08/31/2024 11:12 AM CDT CARDIOLOGY HOSPITAL DISCHARGE SUMMARY DATE OF ADMISSION: 08/27/2024 DATE OF DISCHARGE: 08/31/2024 Discharge Provider: Mando Fang M.D., Ph.D. Discharge Provider Team: [facility] 2 PRINCIPAL DIAGNOSIS Edema Leg DISMISSAL DIAGNOSES Edema leg, heart failure exacerbation DISCHARGE DISPOSITION: Home or Self Care [1] RECOMMENDATIONS FOR FOLLOW-UP APPOINTMENTS Information for Provider: Check BMP, CBC and fluid status Follow-up weight and consider altering dose of torsemide Follow-up INR Please see steroid taper: Continue steroid taper: 17.5 mg for 14 days until 09/12/24, then switch to 15 mg daily for 14 days. Continue pantoprazole. Consider de-escalating insulin as needed for steroid-induced hyperglycemia Consider connecting to CKD clinic Information for Patient: Please follow-up with your Primary Care Provider as soon as you are able to make an appointment. Vanesa also plan to have labs drawn prior to this appointment, so please look for any communications from our team. Please see additional appointments, including follow-up with the Pericarditis Clinic. You currentlyhave a cardiac MRI planned, and they would like you to have this performed prior to visit to this clinic. We will have our scheduling reach out to you for planning this scan. If you become ill, and cannot tolerate appropriate oral intake of food and fluids, please reach outto your provider to discuss decreasing your dose of torsemide. Please seek medical attention if you have any of the following symptoms: Fever, unintentional weight loss, night sweats Chest pain, palpitations, arm or neck pain, difficulty breathing, severe persistent cough Diarrhea; Persistent constipation; Blood in the stools; Persistent nausea or vomiting, Vomiting blood, Severe tenderness of the belly, Jaundice (yellowish discoloration of the skin) New sudden problems with vision, speech, swallow, movement of arms or legs, walking, or face symmetry Medications Changed Started: Duricef 500 mg, one tablet daily. Last dose 09/07 for a total of 10 days antibiotics. Changed: Torsemide 20 mg increased to 60 mg twice daily Stopped: Cefdinir (Omnicef) Bactrim For Cardiology Provider: Review medications for RESTRICTIONS: None FOLLOW-UP APPOINTMENTS Scheduled Appointments 09/08/2024 7:15 AM RST INTAKE VISIT POD A 01 Admitting/Central Scheduling 09/16/2024 1:00 PM DX NARCISO [address] Radiology 09/16/2024 1:20 PM LAB BLOOD [facility] C Laboratory Medicine 09/16/2024 1:40 PM ECG [address] [facility] CVD Cardiovascular Disease 09/16/2024 4:00 PM Keagan Tellez M.D. Cardiovascular Disease For appointment details refer to your Patient Appointment Guide. HOSPITAL COURSE Admission Weight: 86.4 kg Dismissal Weight: 79.9 kg BMI: Body mass index is 27.98 kg/m??. Background Jong Harris is a 74-year-old male who presented with lower extremity edema, shortness of breath, and bilateral lower extremity blistering, concerning for heart failure exacerbation in the setting of volume overload secondary to inadequate diuresis. Mr. Harris had a CABG and AVR in September 2023. 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 He completed steroid course in May with worsening of SOB and BLE edema; he was admitted to cardiology here in July 2024 where he was restarted on prednisone taper and increased colchicine to 0.6 mg daily. He was also diuresed aggressively to his dry weight of 87kg. He was stillon his prednisone 20 mg daily at the time of presentation. Prior to Admission Since his discharge on August 01, he had not felt back to his baseline exercise tolerance and experiencing orthopnea. This worsened over the 5 days prior to presentation. Additionally, for the week prior to admission he had worsening lower extremity edema and blistering. He went to an outside urgent care and they cultured the blister and prescribed a course of cefdinir without any systemic signs of infection. His weight at the time of admission was 86.4 kg. ED course: BNP was elevated to 5662. EKG was NSR. He was given 40 mg of IV Lasix without any charted urine output and he was admitted to the cardiology 2 service. Hospital Course His examination was notable for significant volume overload with 4+ pitting edema bilaterally, elevated JVP with Kussmaul sign, but no other signs of tamponade, and bilateral lower extremity blistering without purulence or erythema. Oral cefdinir was stopped. All other cardiac medications were pablo nued except for his home dose of diuretic, including steroids and colchicine. He was diuresed aggressively with weight from 86.4 kg to 80.4 kg. TTE on 08/29/24 demonstrated ejection fraction of 68% with findings notable for abnormal septal motion, mild mitral valve regurgitation and enlarged inferior vena cava. No evidence for pericardial effusion or constrictive pericarditis. There was concern for cellulitis affecting the right lower extremity due to erythema and development of sores on 08/29/24. Sores were also present on the left lower extremity without significant erythema. ID was consulted and the patient was started on cefazolin on 08/29/24 which was continued until 08/30/24, at which time he was started on oral antibiotics with Duricef [address] Tellez, the pericardial specialist, is scheduled to see him outpatinet in September. He is concerned for progression of pericardial disease. Recommended cardiac MRI after heart failure is better controlled. Disposition The patient was discharged to home on 08/31 in fair condition. They should follow up with their primary care provider in the next 2-3 days regarding his renal function and to discuss changes in medication. TEST RESULTS PENDING AT DISCHARGE: Pending Labs Order Current Status Bacteria / Mee Culture, Blood #1 Preliminary result Bacteria / Mee Culture, Blood #2 Preliminary result CONDITION ON DISCHARGE: Stable. DIET AT DISCHARGE: Cardiovascular (2,000 mg sodium per day, low saturated and trans fat) PRIMARY PROVIDER Patient Care Team: Rowena Reddy M.D. as External Primary Care Physician (Internal Medicine) Primary Care Providers: Elsewhere, Pcp (General) No address on file Primary Care Provider Phone Number: None Primary Care Provider Fax Number: None MARGIN CODE I personally spent total time of 45 minutes with >50% spent with counseling/coordination of care, independent from other providers on our team. documented in this encounter Discharge Instructions * Discharge Instructions* Yadira Vigil - 08/28/2024 8:19 AM CDT You were discharged from the [facility] C[facility] 2 Service. Please identify this service name if you call withquestions after hospitalization. * Attachments The following attachments cannot be sent through Care Everywhere. * Cefadroxil (By mouth) (Serbian) documented in this encounter Medications at Time of Discharge acetaminophen (TylenoL) 500 mg tablet Take 2 tablets (1,000 mg total) by mouth every 6 (six) hours as needed for pain. 08/31/2024 aspirin 81 mg chewable tablet Chew 1 tablet (81 mg total) daily. 09/26/2023 09/25/20 atorvastatin (LIPITOR) 80 mg tablet Take 1 tablet (80 mg total) by mouth at bedtime. 09/26/2023 09/25/20 24 cefadroxil (Duricef) 500 mg capsuleIndicati ons:Skin and soft tissue infection Take 1 capsule (500 mg total) by mouth daily for 7 days Indications: Skin and soft tissue infection. 7 capsule 08/31/2024 09/07/20 24 cholecalciferol 10 mcg (400 Unit) tablet Take 10 mcg by mouth daily. cyanocobalamin 2,000 mcg tablet Take 2,000 mcg by mouth daily. finasteride (PROSCAR) 5 mg tablet Take 1 tablet (5 mg total) by mouth daily. 09/26/2023 insulin NPH (NovoLIN N FlexPen) 100 unit/mL (3 mL) pen Inject 25 units subcutaneously in the morning and 10 units in the evening. Call in for dose adjustment 08/04/2024 metoprolol succinate (TOPROL-XL) 50 mg 24 hr tablet Take 1 tablet by mouth daily. 12/20/2023 predniSONE (Deltasone) 5 mg tablet Take 4 tablets (20 mg) by mouth daily for 28 days, THEN 3.5 tablets (17.5 mg) daily for 14 days, THEN 3 tablets (15 mg) daily for 14 days until pericardial appt. Further dose to be decided at appt. DO NOT STOP TAKING ABRUPTLY 1020 tablet 08/01/2024 2:47 PM CDT 08/01/2024 11/09/20 24 rOPINIRole (REQUIP) 0.5 mg tablet Take 1 tablet (0.5 mg total) by mouth 3 (three) times a day. 09/26/2023 tamsulosin (FLOMAX) 0.4 mg 24 hr capsule Take 1 capsule (0.4 mg total) by mouth at bedtime. 09/26/2023 torsemide (Demadex) 20 mg tablet Take 3 tablets (60 mg total) by mouth 2 (two) times a day. 120 tablet 2 08/31/2024 warfarin (Jantoven) 1 mg tabletIndicatio ns:Prosthesis Aortic Valve Take 2 mg daily until your INR check with Anticoagulation Clinic 7 tablet 08/01/2024 2:47 PM CDT 08/01/2024 alcohol swabs pads, medicated Use as needed for diabetes control 1500 each 3 08/01/2024 2:47 PM CDT 08/01/2024 blood glucose control high,low (Accu-Chek Guide L1-L2 Ctrl Nimo) solution Glucose control solution provides an easy way to ensure accurate blood glucose testing. 1 each 08/01/2024 2:47 PM CDT 08/01/2024 blood sugar diagnostic strips 2 test daily. 200 test 08/01/2024 2:47 PM CDT 08/01/2024 08/01/20 25 blood-glucose meter misc Test as directed for diabetes control. 1 each 08/01/2024 2:47 PM CDT 08/01/2024 lancets 2 each daily. 200 each 08/01/2024 2:47 PM CDT 08/01/2024 08/01/20 25 pen needle, diabetic (BD Ultra-Fine Short Pen Needle) 31 gauge x 5/16 needle 2 Injection daily. 100 each 08/01/2024 2:47 PM CDT 08/01/2024 08/01/20 25 colchicine (Colcrys) 0.6 mg tablet Take 1 tablet (0.6 mg total) by mouth daily. 30 tablet 08/01/2024 08/31/20 24 pantoprazole (Protonix) 40 mg EC tablet Take 1 tablet (40 mg total) by mouth daily before morning meal. 30 tablet 08/01/2024 2:47 PM CDT 08/01/2024 08/31/20 24 documented as of this encounter Progress Notes * Mando Fang M.D., Ph.D. - 08/30/2024 11:46 AM CDT I have seen and examined patient in conjunction with Dr.Ben Maryjo Ruff and agree with his assessment and plan. No events overnight. We initiated p.o. antibiotics for cellulitis yesterday. A TTE was largely normal. For some reason cardiac MRI has not been done. We have diuresed him with 200 mg of IV Lasix twice. He is net -1.6 L. His creatinine today is 3.06/288 mg/dL. 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 Remainder per Dr. Ruff. * Jack Mcclendon, Pharm.DJarrett, R.Ph., BCPS, M.B.A. - 08/30/2024 10:42 AM CDT Warfarin Dosing Progress Note: Jong Harris is a 74 y.o. male who was admitted to the hospital on 08/27/2024. Hospital Pharmacy has been consulted for inpatient warfarin management and monitoring. Warfarin Indication: Aortic valve - Mechanical Type of therapy: Continuation Prior average daily dose: 2 Comorbidities: Acute heart failure (e.g. fluid retention, pulmonary edema) Are any of these comorbidities new with admission? Yes Are there any new medication interactions with admission? Yes Target INR: 2 - 3 Day of therapy: 4 Drug interactions include the following: Strong Potentiator (From admission, onward) None Moderate Potentiators (From admission, onward) Start Dose/Rate Route Frequency Ordered Stop 08/27/24 1751 acetaminophen tablet 1,000 mg (TylenoL) 1,000 mg oral Every 6 hours PRN 08/27/24 1751 Potentiating (From admission, onward) Start Dose/Rate Route Frequency Ordered Stop 08/29/24 1600 ceFAZolin injection 2 g (Ancef) 2 g intravenous Every 12 hours 08/29/24 1540 09/08/24 0359 08/27/24 2100 rOPINIRole tablet 0.5 mg (Requip) 0.5 mg oral 3 times daily 08/27/24 1751 08/27/24 1751 acetaminophen tablet 1,000 mg (TylenoL) 1,000 mg oral Every 6 hours PRN 08/27/24 1751 Enzyme Inducers (From admission, onward) None Binders (From admission, onward) None Vitamin K-Containing Medications (168h ago, onward) None Antiplatelets & Anticoagulants (168h ago, onward) Start Dose/Rate Route Frequency Ordered Stop 08/30/24 1700 warfarin tablet 2 mg (Jantoven) 2 mg oral Once 08/30/24 1042 08/30/24 2345 08/29/24 1700 warfarin tablet 2 mg (Jantoven) 2 mg oral Once 08/29/24 0937 08/29/24 1717 08/28/24 1700 warfarin tablet 1.5 mg (Jantoven) 1.5 mg oral Once 08/28/24 1251 08/28/24 1659 08/28/24 0900 aspirin chewable tablet 81 mg 81 mg oral Daily 08/27/24 1751 08/27/24 1945 warfarin tablet 1 mg (Jantoven) 1 mg oral Once 08/27/24 1923 08/27/24 2125 08/27/24 1815 warfarin management (Jantoven) oral Daily 08/27/24 1751 INR reversal agents were not given. Warfarin Reversal Agent Administrations (last 168 hours) Vitamin K and K-Centra None FFP Administrations During Encounter (Filter): EAP GENERAL TRANSFUSE FFP Medications Shown None Warfarin Administrations (last 168 hours) Date/Time Action Medication Dose 08/29/24 1717 Given warfarin tablet 2 mg (Jantoven) 2 mg 08/28/24 1659 Given warfarin tablet 1.5 mg (Jantoven) 1.5 mg 08/27/242124 Given warfarin tablet 1 mg (Jantoven) 1 mg INR (no units) Date Value Status 08/30/2024 2.4 Final 08/29/2024 2.7 Final 08/28/2024 3.0 Final 08/27/2024 3.1 Final A/P: Warfarin order of 2 mg has been placed for today and the pharmacist team will continue to follow patient's clinical progress daily until discharge from the hospital. Repeating home dose again today, note antimicrobials are being changed and managed by IFD. Patient not currently receiving SMZ/TMP which could lead to increased warfarin requirements. Jack Mcclendon Pharm.D., R.Ph., CUBA, M.B.A. * Kev Ruff M.D., Ph.D. 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 INTERVAL EVENTS: No acute events overnight. The patient received 200 mg Lasix over previous day and notes improvement in pain and swelling in his legs bilaterally. He denies any fevers and no concerns for breathing or shortness of breath. He denies orthopnea. Denies chest pain, fever, or chills. OBJECTIVE PHYSICAL EXAMINATION General: Alert, interactive, not acutely ill. Skin: Diffuse bruising of the upper extremities and torso. ENT: Hearing grossly intact. Lungs: Clear to auscultation bilaterally. No wheezes or crackles. Heart: Regular rate and rhythm. No murmurs appreciated. 3+ pitting at ankles, wraps to knees. JVD is present to the mid neck while sitting upright with increase with inspiration. MSK: See QREADS for updated photos. Bilateral lower extremities with multiple tense, tender weepingblisters without any obvious purulent discharge. Right lower extremity with stable erythema with ulcer on medial aspect of the right lower extremity that is dark brown in color. Similar, smaller sorepresent on the left lower extremity as pictured, with some erythema. Abdomen: Soft, distended, bowel sounds normoactive, nontender. ASSESSMENT / PLAN Mr. Harris is hospitalized on [facility] CARD 2 for evaluation and management of heart failure exacerbation. Assessment: His presentation is most consistent with heart failure secondary to volume overload likely due to inadequate diuresis. In addition he has a history of effusive pericarditis with constrictive physiology, though his echocardiogram is overall reassuring. He has no chest pain his vitals are stable. CRPwas not elevated. His dry weight was previously noted as 88 kg, and he was 86.4 kg upon admission here, he may have a new dry weight as he appears clinically volume overloaded. Weight has been improving with diuresis. Blisters are likely secondary to venous stasis, although his new erythema of the right lower extremity is concerning for cellulitis. The patient reportedly had a culture completed for his blister at the local urgent care which grew Pseudomonas. We plan to consult Infectious Disease, draw blood cultures, and start cefepime for pseudomonal coverage. From a cardiac perspective, we will continue his cardiac medications and diuresis. We would additionally like to further evaluate the patient's constrictive physiology with a repeat TTE with strain and a cardiac MRI. The patient will have follow up with the Pericarditis clinic, at which time the patient may be consider for starting rilonacept. Today's plan: - Transition to oral diuretic and antibiotics - Follow-up BMP and CBC, plan for discharge tomorrow pending stability Plan: # Heart failure exacerbation # HFpEF (EF 60%) # Effusive pericarditis with constrictive physiology # S/p CABG September 2023 # S/p mechanical aortic valve (September 2023) on warfarin # Paroxysmal Afib on warfarin # HLD Discontinue cefazolin Start Duricef 500 mg daily Continue warfarin Continue colchicine Continue steroid taper: 17.5 mg for 14 days until 09/12/24, then switch to 15 mg daily for 14 days. Continue pantoprazole. Bactrim ppx may be discontinued at this time. Transition to oral diuresis, trial of torsemide 100 mg PO Goal net negative 1-2 L Continue metoprolol succinate 50 mg daily Continue atorvastatin 80 mg daily Obtain TTE Obtain cardiac MRI # Lower extremity blisters, likely secondary to venous stasis # Lower extremity cellulitis - ID consult: recommend 7-10 days of cefazolin IV or Duricef if discharge - Per pharmacy would recommend 500 mg in setting of poor renal function, can do 500 BID if CrCl > 25 - Blood cultures x 2 on 08/29/24; NGTD - Consider dermatology consult if no improvement # DM2 with steroid induced hyperglycemia on insulin Holding home dose of 25 units of NPH in the morning and 10 units of NPH in the evening 15 units NPH in the morning and 5 units NPH in the evening Moderate sliding scale VTE Prophylaxis: On therapeutic warfarin. Surrogate Decision Maker: , Lissy. Living Situation Before Admission: Home. Discharge Plan (equipment, therapy, and facility): Uncertain. Plan discussed with [facility] C[facility] 2 Lineworker, Dr. Fang, who was present during smallwood portions of the evaluation today. Please page [place] [employer] 2 [place] [phone] with any questions. Chace Ruff M.D., Ph.D. PGY-1 Internal Medicine 08/30/24 8:34 AM CDT Cosigned by Mando Fang M.D., Ph.D. at 08/31/2024 11:06 AM CDT * Ramses Roca, SPT - 08/29/2024 3:50 PM CDT Physical Therapy Inpatient Treatment SUBJECTIVE Patient's Name: Jong Harris Referring/Attending Provider: Mando Fang M.D. Reason for Referral: Physical Therapy Evaluate and Treat History of Present Illness: Jong Harris is a 74 y.o. male who was admitted to [facility] in [place] on 08/27/2024 for Edema Leg [R60.0] Precautions Other Precautions: fall Pain Assessment: Pain Ratin/10 on a 0-10 point scale, Location: lower extremities Patient/Caregiver Goals: Return to highest level of function Subjective Comments: Agreeable to therapy session. OBJECTIVE Vital Signs Vitals stable per chart review. Outcome Measures: AM-PAC Inpatient Short Form: AM-PAC Basic Mobility [...] 3-5 steps with a railing?: A Little [facility] Basic Mobility (V.2) Raw Score: 23 [facility] Basic Mobility (V.2) Standardized Score: 50.88 Interpretation: Based on scoring guidelines using the raw score value: Those going to home had an average score at or above 18 Those going to facility had an average score at or below 17 Clinicians answer the [facility] Inpatient Short Form based on observed patient activity and/or clinical judgement (patient can be scored without physically performing each activity) Therapeutic Interventions: SIT <-> SUPINE: Assistance Level: independent Device: head of bed elevated and bedrail Assistance/Cueing: none Delivery: Assessed SIT TO STAND: Assistance Level: independent Device: gait belt and no assistive device Surface: bed and chair Assistance/Cueing: none Delivery: assessed STAND TO SIT: Assistance Level: modified Independent Device: gait belt and four wheeled walker Surface: bed and chair Assistance/Cueing: none Delivery: assessed GAIT: Distance: 75 meters Assistance Level:modified Independent Device: gait belt and four wheeled walker Quality: decreased gait speed Assistance/Cueing:none for Delivery: assessed Comments: Patient noted preference for 4 wheeled walker versus front wheeled walker. STAIRS: 10 steps with left handrail Assistance Level: supervision/stand by assistance contact guard assistance Device: gait belt Navigation Pattern: Ascending: step to, forward, and leading with left Descending: step to, forward, and leading with right Intervention provided: pacing and proper sequencing - Comments: Patient was educated on stair navigation with use of quad cane but decided to perform with a gait aid. Education: -Role of PT in acute setting and collaborated with patient and/or family on goals and plan of care. -Fall prevention -Home safety -Durable medical equipment recommendations -Safe transfer techniques The patient/family educated on safe transfer techniques with functional mobility/activity. The patient's status was discussed and the following coordination of care occurred with the RN and Family/Caregiver Family/Caregiver Present: Patient was left at edge of bed, with present at end of session with call light in reach, all needs met and questions answered. Assessment Discharge Therapy Needs - PT: Ongoing skilled physical therapy (Recommend outpatient PT for balance.) If skilled therapy is recommended, skilled therapy can include physical therapy provided by home health, outpatient clinic, or a post-acute facility. The location of these services is determined by the patient's care team in partnership with patient/family. Level of Care Needed - PT: Assistance with stairs Barriers to Discharge Home: None Equipment Recommended - PT: 4-wheeled walker Will revisit conversation on Sunday to see if pt agrees to have a script put in for one. From a physical therapy perspective, the level of care above has been recommended for Mr. Harris after hospital discharge. This level of care is based on his functional abilities during today's session. This may change throughout the hospital course and will be updated as appropriate. Clinical Impression: Currently, patient presents with decreased strength, increased pain, impaired dynamic balance, and cardiopulmonary impairments resulting in limitations with bed mobility, transfers, gait, and stair negotiation. Patient demonstrated ability to ambulate with 4 wheeled walker versus front wheeled walker with modified independence. Patient also navigated 10 steps while demonstrating proper sequence of lower limb advancement. With caregiver present, patient and therapist had a lengthy discussion about patient's fear of falling and aversion to use of gait aid. Therapist recommended that patient consider having a gait aid for safety and fall prevention while also considering outpatient therapy for improving strength and balance. Patient seemed to agree with the logic of this suggestion. Patient would benefit from continued skilled therapy treatment to address above impairments, maximize independence, and prepare for safe discharge. Rehab potential: Mr. Harris has Good potential to achieve established physical therapy goals within the time frame outlined below. Progress: Progressing toward goals Recommendations for mobility/activity while hospitalized: chair 3-4x/day Independent (2 hours max in chair at a time) gait 3-4x/day with stand by assist and gait belt and front wheeled walker Plan PT Plan Comments: Trial short distance ambulation without gait device. Assess balance. Initiate lower extremity strengthening. Assess bed mobility without hospital features. Functional Goals: PT Inpatient Goals PT Goal #1: Patient will demonstrate modified independence with bed mobility without hospital features in order to progress toward prior level of function. PT Goal #1 Status: Progressing PT Goal #2: Patient will demonstrate modified independence with standing ambulatory transfers usingleast restrictive device in order to progress toward prior level of function. PT Goal #2 Status: Achieved PT Goal #3: Patient will demonstrate ability to ambulate 75 meters with modified independence usingleast restrictive device in order to safely navigate home environment. PT Goal #3 Status: Achieved PT Goal #4: Patient will demonstrate ability to navigate 10 steps with supervision using least restrictive device in order to safely enter and exit place of residence. Treatment Plan: Plan: Continue with current plan PT Amount: 1 visit per day PT Frequency: 5 times per week PT Inpatient Duration : Until goals are met or hospital discharge Requires Inpatient Follow-Up: Yes PT - Next Inpatient Appointment: 09/01/24 Patient agrees with the plan of care and goals. Treatment interventions may include: Treatment/Interventions: Therapeutic exercise, Therapeutic functional activity, Neuromuscular re-education, Gait training Billing: Time Spent with Patient Therapeutic Interventions Gait Training (min): 45 min Time Tracking Total Timed Units (min): 45 min Total Treatment Time (min): 45 min EITAN Thompson Cosigned by Fanny Delgado, P.TJarrett, D.P.T., [facility] at 08/29/2024 4:32 PM CDT Associated attestation - Fanny Delgado, P.T., D.P.T., [facility] - 08/29/2024 4:32 PM CDT This therapist has reviewed all documentation and supervised today???s session. The therapist agrees with the plan developed in collaboration with the patient. * Lorena Pickens M.D. 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 Medical comorbidities otherwise notable for: Hyperlipidemia, hypertension, diabetes type 2 on insulin in the setting of steroid use, AFib on warfarin, history of CVA with right hemiplegia, and CKD IIIb Home cardiac medications include: Aspirin 81 mg daily, atorvastatin 80 mg daily, metoprolol succinate 50 mg daily, prednisone 20 mg daily, torsemide 20 mg daily, warfarin with INR goal 2-3, colchicine 0.6 mg daily. See H&P from 08/27/2024 for full details. INTERVAL EVENTS: -No acute events overnight. The patient received an additional dose of Lasix as he was not at his urine output goal. This morning, he reports his breathing is improved and that since his admission hefeels he can walk further without becoming short of breath. He denies orthopnea. Denies chest pain,fever, or chills. He reports occasional sharp pains in his legs associated with the sores that are present, as described below. OBJECTIVE PHYSICAL EXAMINATION General: Alert, interactive, not acutely ill. Skin: Diffuse bruising of the upper extremities and torso. ENT: Hearing grossly intact. Lungs: Clear to auscultation bilaterally. No wheezes or crackles. Heart: Regular rate and rhythm. No murmurs appreciated. 3+ pitting edema to the knees. JVD is present to the mid neck while sitting upright with increase with inspiration. MSK: See QREADS for updated photos. Bilateral lower extremities with multiple tense, tender weepingblisters without any obvious purulent discharge. Right lower extremity is now erythematous and a sore is present on the medial aspect of the right lower extremity that is dark brown in color. Similar, smaller sore present on the left lower extremity as pictured, with some erythema. Abdomen: Soft, distended, bowel sounds normoactive, nontender. ASSESSMENT / PLAN Mr. Harris is hospitalized on RST CARD 2 for evaluation and management of heart failure exacerbation. Assessment: His presentation is most consistent with heart failure secondary to volume overload likely due to inadequate diuresis. Less likely is re-emergence of his effusive pericarditis with constrictive physiology and although he does have Kussmaul sign, he has no chest pain and he has no other signs of tamponade like hypotension or distant heart sounds. CRP was not elevated. His dry weight was previouslynoted as 88 kg, and he was 86.4 kg upon admission here, he may have a new dry weight as he appears clinically volume overloaded. Weight has been improving with diuresis. Blisters are likely secondaryto venous stasis, though new erythema affecting the right lower extremity is concerning for cellulitis. The patient reportedly had a culture completed for his blister at the local urgent care which grew Pseudomonas. We plan to consult Infectious Disease, draw blood cultures, and start cefepime for pseudomonal coverage. From a cardiac perspective, we will continue his cardiac medications and diuresis. We would additionally like to further evaluate the patient's constrictive physiology with a repeat TTE with strain and a cardiac MRI. The patient will have follow up with the Pericarditis clinic, at which time the patient may be consider for starting rilonacept. Today's plan: -Draw blood cultures, start cefepime, and consult ID -TTE and cardiac MRI to better assess constrictive physiology -Continue diuresis Plan: # Heart failure exacerbation # HFpEF (EF 60%) # Effusive pericarditis with constrictive physiology # S/p CABG September 2023 # S/p mechanical aortic valve (September 2023) on warfarin # Paroxysmal Afib on warfarin # HLD Discontinue cefdinir Continue warfarin Continue colchicine Continue steroid taper: 17.5 mg for 14 days until 09/12/24, then switch to 15 mg daily for 14 days. Continue pantoprazole. Bactrim ppx may be discontinued at this time. Spot dosing diuretics: 100 mg IV Lasix this morning, plan to redose in afternoon based on I/Os Goal net negative 1-2 L Continue metoprolol succinate 50 mg daily Continue atorvastatin 80 mg daily Obtain TTE Obtain cardiac MRI # Lower extremity blisters, likely secondary to venous stasis -ID consult: started cefazolin 2 q Q12h -Blood cultures x 2 on 08/29/24 -Consider dermatology consult if no improvement # DM2 with steroid induced hyperglycemia on insulin Holding home dose of 25 units of NPH in the morning and 10 units of NPH in the evening 15 units NPH in the morning and 5 units NPH in the evening Moderate sliding scale VTE Prophylaxis: On therapeutic warfarin. Surrogate Decision Maker: , Lissy. Living Situation Before Admission: Home. Discharge Plan (equipment, therapy, and facility): Uncertain. Plan discussed with RST CARD 2 Lineworker, Dr. Camacho, who was present during smallwood portions of the evaluation today. [place]ST [place] 2 [place] [phone] with any questions. Lorena Pickens MD Internal Medicine PGY-1 Pager [phone] * Mando Fang M.D., Ph.D. - 08/29/2024 12:35 PM CDT I have seen and examined patient in conjunction with Dr.Kelsey Edu Pickens and agree with her assessment and plan. Briefly, Mr. Harris is a 74-year-old gentleman who was admitted with heart failure exacerbation. He also has a recent history of recurrent effusive constrictive pericarditis which is thought to be postoperative. He has underwent aortic valve replacement and coronary artery bypass grafting. He hasCKD. We have been diuresing him he received 20/40/80 mg of IV Lasix yesterday and he is net negative 1.7 L. Creatinine is pending. He has been having some leg wounds and I am concerned that we might be dealing with cellulitis as the erythema has extended substantially. This is also confirmed by his who accompanies him todayduring our morning rounds. IMPRESSION/PLAN #1 Heart failure exacerbation #2 History of recurrent effusive constrictive pericarditis, on treatment including steroid taper #3 Status post AVR with an on X bileaflet mechanical valve #4 Status post coronary artery bypass grafting #5 CKD, stage IV #6 Lower extremity cellulitis We will start antibiotic treatment for cellulitis. We plan to diurese him with 100 mg of IV Lasix repeatable if electrolytes allow us to. We will obtain a transthoracic echocardiogram and a cardiac MRI. I appreciate recommendations of Dr. Tellez from the pericardial clinic. Remainder per Dr. Pickens. * Brigitte Fritz, PharmLeonid., R.Ph., [facility] - 08/29/2024 9:26 AM CDT Pharmacist Progress Note Reason for admission: Shortness of breath, worsening bilateral LE edema, blistering lesions PMH: mechanical AVR, CAD s/p CABG, LA appendage ligation, postop acute effusive constrictive pericarditis (Dec 2023), DM2, HTN, HLD, CKD, CVA OBJECTIVE Neuro: Received hydromorphone x1, ropinirole CV: SOB/LE edema - furosemide boluses IV. Pericarditis - colchicine 0.6 mg daily, prednisone 17.5 mg daily (taper). Mech AVR - warfarin, ASA. CAD - atorvastatin 80 mg, metoprolol succinate 50 mg daily. Neph: Estimated Creatinine Clearance: 26.8 mL/min (A) (by C-G formula based on SCr of 2.88 mg/dL (H)). BL SCr seems to fluctuate, ~low 2's. Endo: aspart TID, NPH PPX: pantoprazole, bactrim Medication Reconciliation: Held: Cefdinir (LE wounds believed to be edema), torsemide Changed: - New: - Warfarin Warfarin Indication: Aortic valve - Mechanical Other indication (comments): No data recorded Target INR: 2 - 3 Warfarin Administrations (last 168 hours) Date/Time Action Medication Dose 08/28/24 1659 Given warfarin tablet 1.5 mg (Jantoven) 1.5 mg 08/27/245 Given warfarin tablet 1 mg (Jantoven) 1 mg INR (no units) Date Value Status 08/29/2024 2.7 Final 08/28/2024 3.0 Final 08/27/2024 3.1 Final ASSESSMENT / PLAN IV diuresis, monitor and replace K/Mg as needed. Holding home torsemide. MANJEET, current med list reviewed. Caution with colchicine accumulation, monitor for GI side effects, reduce to 0.3 mg daily if Cr continues to worsen/if signs of toxicity - so far no n/v/d; though CRP is now <3 it might be ok to be less aggressive. Will discuss with team. Warfarin home dose was 2 mg daily for mechanical AVR. A lower dose was given in setting of INR 3.1 and fluid overload. INR is down to 2.7. Drug interactions remain unchanged (did get bactrim this AM)and diuresis continues (down 5 kg from admit). Will return to home dose 2 mg. Prednisone continues taper. Can stop bactrim when pred < 20 mg/day Brigitte Fritz Pharm.D., R.Ph., BCPS * Katya Fatima MDIV - 08/28/2024 1:54 PM CDT [facility] Spiritual Care Progress Note Patient: Jong Harris Age:74 y.o. Location: [address] Reason(s) for encounter: Spiritual and psychosocial support as part of the interdisciplinary care team. Summary: I was able to meet with Jong Harris this afternoon. His , Lissy was present for support. Mr. Harris and Lissy held space for connection and introduction to Spiritual Care. They shared a bit of their truman history within the [employer] zoroastrian and feel spiritually supported. No specific or acute needs were named at this time, but they expressed gratitude for Spiritual Care check-in and affirmed to reach out through medical staff should they desire additional care. Spiritual Assessment Shinto Identification / Spiritual Practices: [employer]. Coping, support and needs: Mr. Harris is well-supported by his , Lissy and loved ones. They appreciated textile bag sewer presence,but named no acute or specific needs at this time. Spiritual Care Plan / Recommendations: Will remain available for spiritual care as needed or requested. Chaplains can be contacted by paging [phone] ([place]) or [phone] (Gn[facility]). * Quentin Farris M.D. 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 Medical comorbidities otherwise notable for: Hyperlipidemia, hypertension, diabetes type 2 on insulin in the setting of steroid use, AFib on warfarin, history of CVA with right hemiplegia, and CKD IIIb Home cardiac medications include: Aspirin 81 mg daily, atorvastatin 80 mg daily, metoprolol succinate 50 mg daily, prednisone 20 mg daily, torsemide 20 mg daily, warfarin with INR goal 2-3, colchicine 0.6 mg daily. See H&P from 08/27/2024 for full details. INTERVAL EVENTS: -admitted yesterday evening -no acute events overnight -he endorses ongoing leg pain, for example when the blanket brushes up against his blisters -his breathing is the same; still short of breath with exertion and lying flat, requiring him to sleep in a chair -his vital signs have been stable, he did have 1 3 beat run of NSVT on telemetry -he received 40 mg IV Lasix twice with 2 L urine output in a net negative of 915 mL. However, urinewas not charted while in the ED and he endorsed two occurrences of urination while in the ED -elevated lactate of 2.6 is now resolved to 1.2 OBJECTIVE PHYSICAL EXAMINATION General: Alert, interactive, not acutely ill. Skin: Diffuse bruising of the upper extremities and torso. Eyes: Pupils equal and round. Sclera anicteric. ENT: Hearing grossly intact. Lungs: Clear to auscultation bilaterally. No wheezes or crackles. Heart: Regular rate and rhythm. No murmurs appreciated. 3-4+ pitting edema to the knees. JVD is present to the mid neck while sitting upright with increase with inspiration. MSK: See QREADS for photos. Bilateral lower extremities with multiple tense, tender weeping blisters without any obvious purulent discharge. Abdomen: Soft, distended, bowel sounds normoactive, nontender. ASSESSMENT / PLAN Mr. Harris is hospitalized on RST CARD 2 for evaluation and management of heart failure exacerbation. Assessment: His presentation is most consistent with heart failure secondary to volume overload likely due to inadequate diuresis. Less likely is re-emergence of his effusive pericarditis with constrictive physiology and although he does have Kussmaul sign, he has no chest pain and he has no other signs of tamponade like hypotension or distant heart sounds. His dry weight was previously noted as 88 kg, and he is 86.4 kg here, he may have a new dry weight as he appears clinically volume overloaded. Blistersare likely secondary to venous stasis but less likely cellulitis or autoimmune process; the blistersite that was cultured at the urgent care does appear somewhat red, but not warm and he has no other systemic signs of infection; reportedly was growing Pseudomonas but bilateral cellulitis is unlikely. We will hold off on antibiotics for cellulitis for now. Main plan will be to continue his cardiac meds including those for pericarditis and spot dosing diuretics as he is clinically volume overloaded with elevated JVP, BNP. Plan: # Heart failure exacerbation # HFpEF (EF 60%) # Effusive pericarditis with constrictive physiology # S/p CABG September 2023 # S/p mechanical aortic valve (September 2023) on warfarin # Paroxysmal Afib on warfarin # Lower extremity blisters, likely secondary to venous stasis # HLD Discontinue cefdinir Continue warfarin Continue colchicine Continue steroid taper (prednisone 20 mg until tomorrow then 17.5 mg for 14 days). Continue pantoprazole and Bactrim prophylaxis Spot dosing diuretics: 40 mg IV Lasix twice daily Goal net negative 1-2 L Continue metoprolol succinate 50 mg daily Continue atorvastatin 80 mg daily # DM2 with steroid induced hyperglycemia on insulin Holding home dose of 25 units of NPH in the morning and 10 units of NPH in the evening 15 units NPH in the morning and 5 units NPH in the evening Moderate sliding scale VTE Prophylaxis: On therapeutic warfarin. Surrogate Decision Maker: , Lissy. Living Situation Before Admission: Home. Discharge Plan (equipment, therapy, and facility): Uncertain. Plan discussed with RST CARD 2 Lineworker, Dr. Camacho, who was present during smallwood portions of the evaluation today. [place] [phone] with any questions. Quentin Farris MD Neurology PGY1 (Internal Medicine Preliminary) Pager [phone] * Jana Allen R.N., C.W.C.N. - 08/28/2024 10:49 AM CDT [facility] Wound RN consulted to assess Jong Harris skin alterations. Wound assessment, pain, and Piter score noted in the flowsheet. The patient verbally consented to photography of the affected area for clinical trending purposes. Images were taken and are available in QREADS. History: Per provider note, Jong Harris is a 74 y.o. year old male presented 08/27/2024 withshortness a breath and worsening bilateral lower extremity edema with blistering lesions. Assessment: Patient was assessed in bed, he was able to independently reposition himself. Upon assessment his bilateral lower legs are with 2+ pitting edema, there are multiple scattered serous filled blisters, some have already deroofed. There is a concern for cellulitis, the skin alteration and blisters are most likely related to volume overload and potential venous insufficiency. Encouraged compression wraps once cellulitis is ruled out. 08/28/24824 Wound 08/28/24 Other (comment) Leg Circumferential;Lower;Bilateral Bilateral Lower Leg Edema with multiple blisters Date First Assessed/Time First Assessed: 08/28/24824 Present on Original Admission: Yes Wound Approximate Age at First Assessment: Unknown Primary Wound Type: Other (comment) Location: Leg Wound Location Orientation: Circumferential;Lower;Bila... Pain Score 3 *Shape Round / oval *Tunneling noen *Signs of Infection Erythema Unable to Measure Y *Wound Bed (blisters) Tissue Exposed None Odor None *Exudate Amount Moderate Drainage Description Serous Gauri-wound Assessment Edema;Erythema Treatments Cleansed Periwound Treatment Cleansed (Comment) Wound Cleansed with Wound cleanser *Primary Dressing (Mepilex AG) *Primary Dressing Frequency of Change 2x/day & PRN Primary Dressing Changed New Primary Dressing Status Clean;Dry;Intact *Secondary Dressing Abdominal dressing *Secondary Dressing Frequency of Change 2x/day & PRN Secondary Dressing Changed New Secondary Dressing Status Clean;Dry;Intact Changed by Wound etl architect Complications none Ongoing management Nursing;Wound/social media project managergrain unloader done by [facility] RN? Yes Focused assessment completed as patient and RN reported no other concerns. DRESSING RECOMMENDATIONS: #1 Bilateral Lower Leg Edema with Blisters Circumferential -Cleanse open blisters with Vashe wound cleanser and 4x4 gauze. -Apply a Mepilex Ag foam over all blisters. -Then Apply ABD Padding and secure with roll Kerlix -Change BID and PRN. Recommended interventions for pressure redistribution and shear [...] or Rosidal foam) under compression wraps. Utilize a static air cushion when up to the chair. Recommended interventions for moisture control: NA Consult recommendations: NA Education: Discussed the plan of care with the patient and nursing. They agree to the plan. The [facility] RN will continue to see the patient, contact or reconsult for worsening wounds or new wounds. Electronically signed by: Jana Allen R.N., C.W.C.N. 08/28/24 10:52 AM CDT * Brigitte Fritz, Pharm.D., R.Ph., [facility] - 08/28/2024 7:44 AM CDT Pharmacist Progress Note Reason for admission: Shortness of breath, worsening bilateral LE edema, blistering lesions PMH: mechanical AVR, CAD s/p CABG, LA appendage ligation, postop acute effusive constrictive pericarditis (Dec 2023), DM2, HTN, HLD, CKD, CVA OBJECTIVE Neuro: Received hydromorphone x1, ropinirole CV: SOB/LE edema - furosemide boluses IV. Pericarditis - colchicine 0.6 mg daily, prednisone 20 mg daily (taper). Mech AVR - warfarin, ASA. CAD - atorvastatin 80 mg, metoprolol succinate 50 mg daily. Neph: Estimated Creatinine Clearance: 27.8 mL/min (A) (by C-G formula based on SCr of 2.82 mg/dL (H)). BL SCr seems to fluctuate, ~low 2's. Endo: aspart TID, NPH PPX: pantoprazole, bactrim Medication Reconciliation: Held: Cefdinir (LE wounds believed to be edema), torsemide Changed: - New: - Warfarin Warfarin Indication: Aortic valve - Mechanical Other indication (comments): No data recorded Target INR: 2 - 3 Warfarin Administrations (last 168 hours) Date/Time Action Medication Dose 08/27/242124 Given warfarin tablet 1 mg () 1 mg INR (no units) Date Value Status 08/28/2024 3.0 Final 08/27/2024 3.1 Final ASSESSMENT / PLAN IV diuresis, monitor and replace K/Mg as needed. Holding home torsemide. MANJEET, current med list reviewed. Caution with colchicine accumulation, monitor for GI side effects, reduce to 0.3 mg daily if Cr continues to worsen/if signs of toxicity. Warfarin home dose was 2 mg daily for mechanical AVR. A lower dose was given yesterday in setting of INR 3.1 and fluid overload. INR is 3.0. Drug interactions remain unchanged. Will increase to 1.5 mg, closer to home dose. Prednisone continues taper. Can stop bactrim when pred < 20 mg/day (tomorrow?) Brigitte Fritz PharmLeonid., R.Ph., BCPS * Ilya Arroyo PharmJarrettDJarrett, R.Ph., BCPS - 08/27/2024 7:23 PM CDT Pharmacist Progress Note OBJECTIVE Warfarin Warfarin Indication: Aortic valve - Mechanical Target INR: 2 - 3 Home dose is 2 mg daily. Notable drug interactions: Bactrim, prednisone Warfarin Administrations (last 168 hours) None INR (no units) Date Value Status 08/27/2024 3.1 Final ASSESSMENT / PLAN INR goal 2-3 for mechanical AVR. INR elevated at 3.1 today in setting of volume overload will reduced dose and administer 1 mg tonight. Ilya Arroyo Pharm.D., R.Ph., BCPS * Ilya Arroyo Pharm.D., R.Ph., BCPS - 08/27/2024 7:18 PM CDT Images from the original note were not included. Admission Medication History Note Adherence issues: No concerns Medication list source: Patient, Family member, and Pharmacy or dispense records Medication related information: - current dose of prednisone is 20 mg, set for dose decrease Sunday - current warfarin dose stable at 2 mg daily - current insulin NPH dose is 30 units in the morning and 20 units in the evening, will need ongoing adjustments with steroid taper - removed oral iron as no longer taking (pt discussed with Neph) Prior to Admission Medications Taking? Last Dose Informant Start Date End Date LT alcohol swabs pads, medicated at Morning -- 08/01/24 -- Use as needed for diabetes control Notes: DX: Diabetes Mellitus Type 2 - E11.9. Pharmacist may substitute brand, needle/syringe size of diabetic supply or adjust quantities down per patient preference or insurance coverage. aspirin 81 mg chewable tablet 08/27/2024 at Morning -- 09/26/23 09/25/24 Chew 1 tablet (81 mg total) daily. atorvastatin (LIPITOR) 80 mg tablet 08/26/2024 at Bedtime -- 09/26/23 09/25/24 Take 1 tablet (80 mg total) by mouth at bedtime. blood glucose control high,low (Accu-Chek Guide L1-L2 Ctrl Nimo) solution at Morning -- 08/01/24 -- Glucose control solution provides an easy way to ensure accurate blood glucose testing. Notes: DX: Diabetes Mellitus Type 2 - E11.9. Pharmacist may substitute brand, needle/syringe size of diabetic supply or adjust quantities down per patient preference or insurance coverage. blood sugar diagnostic strips at Morning -- 08/01/24 08/01/25 2 test daily. Notes: DX: Diabetes Mellitus Type 2 - E11.9. Pharmacist may substitute brand, needle/syringe size of diabetic supply or adjust quantities down per patient preference or insurance coverage. blood-glucose meter [facility] [place] at Morning -- 08/01/24 -- Test as directed for diabetes control. Notes: DX: Diabetes Mellitus Type 2 - E11.9. Pharmacist may substitute brand, needle/syringe size of diabetic supply or adjust quantities down per patient preference or insurance coverage. cefdinir (Omnicef) 300 mg capsule 08/27/2024 at Noon -- 08/25/24 -- Take 300 mg by mouth daily. cholecalciferol 10 mcg (400 Unit) tablet 08/27/2024 at Morning -- -- -- Take 10 mcg by mouth daily. colchicine (Colcrys) 0.6 mg tablet 08/27/2024 at Noon -- 08/01/24 08/31/24 Take 1 tablet (0.6 mg total) by mouth daily. cyanocobalamin 2,000 mcg tablet 08/27/2024 at Morning -- -- -- Take 2,000 mcg by mouth daily. finasteride (PROSCAR) 5 mg tablet 08/27/2024 at Morning -- 09/26/23 -- Take 1 tablet (5 mg total) by mouth daily. insulin NPH (NovoLIN N FlexPen) 100 unit/mL (3 mL) pen 08/27/2024 at Morning -- 08/04/24 -- Inject 25 units subcutaneously in the morning and 10 units in the evening. Call in for dose adjustment Patient taking differently: Inject 30 units subcutaneously in the morning and 20 units in the evening. Call in for dose adjustment lancets at Morning -- 08/01/24 08/01/25 2 each daily. Notes: DX: Diabetes Mellitus Type 2 - E11.9. Pharmacist may substitute brand, needle/syringe size of diabetic supply or adjust quantities down per patient preference or insurance coverage. metoprolol succinate (TOPROL-XL) 50 mg 24 hr tablet 08/27/2024 at Morning -- 12/20/23 -- Take 1 tablet by mouth daily. pantoprazole (Protonix) 40 mg EC tablet 08/27/2024 at Morning -- 08/01/24 08/31/24 Take 1 tablet (40 mg total) by mouth daily before morning meal. pen needle, diabetic (BD Ultra-Fine Short Pen Needle) 31 gauge x 5/16 needle at Morning -- 08/01/24 08/01/25 2 Injection daily. Notes: DX: Diabetes Mellitus Type 2 - E11.9. Pharmacist may substitute brand, needle/syringe size of diabetic supply or adjust quantities down per patient preference or insurance coverage. predniSONE (Deltasone) 5 mg tablet 08/27/2024 at Noon -- 08/01/24 11/09/24 Take 4 tablets (20 mg) by mouth daily for 28 days, THEN 3.5 tablets (17.5 mg) daily for 14 days, THEN 3 tablets (15 mg) daily for 14 days until pericardial appt. Further dose to be decided at appt. DO NOT STOP TAKING ABRUPTLY rOPINIRole (REQUIP) 0.5 mg tablet 08/27/2024 at Noon -- 09/26/23 -- Take 1 tablet (0.5 mg total) by mouth 3 (three) times a day. sulfamethoxazole-trimethoprim (Bactrim) 400-80 mg per tablet 08/27/2024 at Morning -- 08/02/24 08/30/24 Take 1 tablet by mouth daily for 28 doses Indications: Prophylaxis, medical. tamsulosin (FLOMAX) 0.4 mg 24 hr capsule 08/26/2024 at Bedtime -- 09/26/23 -- Take 1 capsule (0.4 mg total) by mouth at bedtime. torsemide (Demadex) 20 mg tablet 08/27/2024 at Morning -- 08/01/24 08/31/24 Take 1 tablet (20 mg total) by mouth daily. warfarin (Jantoven) 1 mg tablet 08/26/2024 -- 08/01/24 -- Take 2 mg daily until your INR check with Anticoagulation Clinic Notes: 2 mg daily documented in this encounter H&P Notes * Mundo Camacho M.D. - 08/28/2024 12:09 PM CDT This is a supervisory note. I met, interviewed, and examined Mr. Harris with the team. I agree with the history of present illness, past medical, surgical, social and family histories, as well as allergies, medications and review of systems as documented. I agree with the team's documentation, inaddition to what I have noted below. CHIEF COMPLAINT/REASON FOR VISIT: Acute decompensated heart failure HISTORY OF PRESENT ILLNESS Mr. Harris is a 74-year-old gentleman from [place], [place]. Records suggest a single episode of paroxysmal atrial fibrillation in 2019 and also a stroke in 2019. These occurred at an outside institution. He has hypertension, hyperlipidemia, and type 2 diabetes mellitus. On September 19, 2023, he underwent aortic valve replacement with a 23-mm On-X mechanical bileaflet aortic prosthesis and coronary artery bypass grafting for severe calcific aortic stenosis with a 3-cusp aortic valve and coronary artery disease. His initial recovery was uneventful. He returned in December with findings of constrictive physiology on December 24, 2023, echocardiogram. Cardiac MRI December 25, 2023, confirmed findings of active effusive constrictive pericarditis. He was placed on colchicine and steroids, the latter of which he discontinued in May. He was then hospitalized July 24 to August 01 with heart failure and acute kidney injury. He diuresed from 95.2 kg to 87 kg. He resumed steroids and increased colchicine from 0.3 to 0.6 mg daily. An echocardiogram during that hospitalization (July 25) continued to show findings of constrictive pericarditis (on my review) with a normally functioning mechanical aortic prosthesis. Since that hospitalization, he feels that he never made a full recovery. About one week ago, he developed lower extremity blisters. He received a course of cefdinir from an outside urgent care. He also developed progressive exertional intolerance and shortness of breath associated with orthopnea. He did not have any fevers, chills, chest pain, or coughing. He ultimately presented to the Emergency Room last night. Natruretic peptides were quite elevated. He received IV diuretics and was admitted. Since admission, weight decreased from 86.4 to 83.1 kg. He continues to note orthopnea and lower extremity swelling this morning. He also has intermittent abdominal bloating. Chest discomfort has notbeen a primary feature of his current symptoms. PHYSICAL EXAMINATION General: The patient is sitting up in a chair. He is awake, alert, oriented, and appropriately conversant. Extremities: Wraps are in place around the lower extremities. Above the wraps, the patient continues to note about 4+ lower extremity edema. Heart: Regular rate. Regular rhythm. Normal S1 and crisp mechanical 2nd heart sound with a very soft 1 to 2/6 early to mid peaking systolic murmur, loudest at the right upper sternal border. No diastolic murmurs. No diastolic filling sounds. No knock or rubs appreciable. Vessels: The patient has jugular venous distention sitting upright with inspiratory increase in venous distention. He has an associated rapid X and Y descent consistent with constrictive physiology. Lungs: Relatively clear bilaterally with no significant wheezes. DIAGNOSTICS Electrocardiogram (August 27): Sinus rhythm with no ischemic changes. Labs (August 28): Hemoglobin 12.8 g/dL, leukocytes 10.1, INR 3.0, creatinine 2.82 mg/dL. Chest x-ray (August 27): No significant change versus July 24, 2024. Perhaps mild increased pulmonary vascularity on my review with a small left pleural effusion. 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 He has had lower extremity blisters, which are likely reflection of progressive venous stasis. He continues to have profound edema on examination. His examination also suggests ongoing constrictive physiology. He has remained on prednisone and colchicine at similar doses as when he left the hospital on August 01. I suspect the overall picture is primarily one of volume overload. The patient may ultimately require more definitive therapy for his pericardial disease, but the priority now is volume optimization. He had been taking cefdinir for his lower extremity wounds. However, I suspect these are just related to his profound edema. I do not believe that antimicrobial therapy is necessary. PLAN: Continue IV diuresis with a goal fluid balance of 2 L negative today. Discontinue antibiotics. Continue other home medications, including steroid taper as previously described and colchicine 0.6mg once daily. I will discuss any additional treatment necessary for the patient's pericardial disease with a member of our Pericardial Disease group. Continue other home medications, including atorvastatin 80 mg daily, metoprolol succinate 50 mg daily. We reviewed the aforementioned with the patient and his . They were amenable with this plan. ADDENDUM (2:40 PM): I spoke to Dr. eKagan Tellez, who is scheduled to see the patient in the Pericardial Clinic on October 02. Dr. Tellez is concerned about progression of the patient's pericardial disease. The patient, particularly if he has ongoing inflammation, may be a candidate for rilonacept. An MRI prior to making this decision will be helpful, but the patient's heart failure needs to be treated first. For now, we will continue diuresis. Dr. Tellez will attempt to move the patient's appointment with him and subsequent MRI to an earlier date. If necessary, we could consider obtaining the cardiac MRI as an inpatient, after the patient adequately diuresis. Mundo Camacho M.D. CT CT Job ID: [id number] * Samy Chaudhry Jr., M.D., M.B.A. - 08/27/2024 8:17 PM CDT [facility] 2 Admission Supervisory Note Jong Harris is a 74 y.o. year old male presented 08/27/2024 with shortness a breath and worsening bilateral lower extremity edema with blistering lesions. Cardiac history significant for mechanical aortic valve replacement with CABG x1 along with left atrial appendage ligation and MAZE procedure 09/2023. Postoperative acute effusive constrictive pericarditis 12/2023, hypertension, hyperlipidemia, type 2 diabetes on insulin, CKD stage IIIB and a history of CVA with residual hemiplegia. Medications include: Aspirin 81 mg, atorvastatin 80 mg, metoprolol succinate 50 mg, ropinirole 0.5 mg t.i.d., tamsulosin 0.4 mg, prednisone 20 mg, colchicine 0.6 mg, Bactrim. Torsemide 20 mg daily. Dry weight: Briefly Patient was diagnosed with postoperative acute constrictive pericarditis Dec 2023 after presenting with dyspnea and lower leg swelling and imaging findings (TTE and cardiac MRI) consistent with effusive constrictive pericarditis. He was treated with prednisone taper(ended May), colchicine, and diuretic therapy with some improvement ---but was once again admitted in July to the CVD service with lower extremity edema and dyspnea. TTE 07/25 again showing evidence of mixed constrictive pericardial disease and restrictive cardiomyopathy. Patient was diuresed and initiated once again on prednisone taper with colchicine in addition to setting up follow up with pericardial Clinic 10/02 for repeat cardiac MRI and TTE with further evaluation. Since his discharge, the patient states he has not returned to his baseline level of exercise tolerance and has continued to describe progressive orthopnea and dyspnea on exertion. Additionally, for the past week, he has noticed worsening lower extremity edema accompanied by blistering. He sought care at an outside urgent care facility, where a culture was taken from the blister--with growth of Pseudomonas- and he was prescribed a course of cefdinir. He denies any fever, chills, or cough, no chest pain, or palpitations. On presentation to the emergency department, his vital signs were stable. Physical examination revealed 4+ pitting edema in both lower extremities and blistering. Laboratory studies showed an elevated lactate level of 2.6 that later normalized-- and a BNP of 5662. A chest X-ray showed no changes compared to imaging from July, and his EKG demonstrated normal sinus rhythm. He received 40 mg ofIV Lasix, although no urine output was recorded, and he was subsequently admitted to the cardiologyservice for further management. On physical exam, patient was in no acute distress. Regular rate rhythm with audible mechanical valve. Lungs were clear with mild decreased aeration at bases but present-no wheezing or rhonchi. Patient has significant bilateral pitting edema up to the thigh, with a few scattered intact serous filled blisters. Left leg has small scabs on the posterior side. Mild erythema is noted in the back of both and are painful to touch. Areas of erythema are cool to the touch. SUBJECTIVE OBJECTIVE Vitals Temperature: [36.8 ??C] 36.8 ??C Heart Rate: [68] 68 Resp Rate: [20] 20 Blood Pressure: (128-146)/(73-95) 129/79 SpO2: [93 %-100 %] 98 % Height: [169 cm] 169 cm Weight: [86.4 kg] 86.4 kg BSA (Calculated - sq m): [2.01 sq meters] 2.01 sq meters BMI (Calculated): [30.3 kg/m??] 30.3 kg/m?? Pulse Rate: [54-68] 66 Physical Exam On physical exam, patient was in no acute distress. Regular rate rhythm with audible mechanical valve. Lungs were clear with mild decreased aeration at bases but present-no wheezing or rhonchi. Patient has significant bilateral pitting edema up to the thigh, with a few scattered intact serous filled blisters. Left leg has small scabs on the posterior side. Mild erythema is noted in the back of both and are painful to touch. Areas of erythema are cool to the touch. Ins & Outs No intake or output data in the 24 hours ending 08/27/24 2017 Last 6 Weights Wt Readings from Last 6 Encounters: 08/27/24 86.4 kg 08/01/24 87.2 kg 06/11/24 93.9 kg 12/25/23 85.2 kg 10/01/23 90.2 kg 09/26/23 87.9 kg CBC Results from last 7 days Lab Units 08/27/24 1459 HEMOGLOBIN g/dL 12.6* HEMATOCRIT % 39.0 RBC AUTO x10(12)/L 4.30* MCV fL 90.7 RBC DISTRIBUTION WIDTH AUTO % 15.5* PLATELETS AUTO x10(9)/L 110* WBC x10(9)/L 8.7 NEUTROPHILS AUTO x10(9)/L 7.51* General Chemistry Results from last 7 days Lab Units 08/27/24 1459 SODIUM P mmol/L 137 CHLORIDE P mmol/L 101 BICARBONATE PLASMA mmol/L 25 ANION GAP P 11 BUN P mg/dL 71* CREATININE mg/dL 2.67* ESTIMATED GFR EGFR mL/min/BSA 25* GLUCOSE P mg/dL 202* CALCIUM P mg/dL 8.9 GI INR/PTT Results from last 7 days Lab Units 08/27/24 1459 INR 3.1 Troponin/CK/BNP Lipids Micro No results found for this visit on 08/27/24 (from the past 72 hours). Diagnostics DX Chest AP or PA and Lateral 2 Views Result Date: 08/27/2024 Impression: No significant change since 07/24/2024. Small left and trace right pleural effusions. Similar atelectasis of the left lung base. Azygous fissure. No discernible pneumothorax. Sternotomy. Mediastinal clips. Loop recorder. Cardiac valve prosthesis. Calcified aorta. Degenerative changes of the visualized skeleton. US Kidneys Bilateral with Bladder Result Date: 07/31/2024 Impression: 1. Normal sonographic appearance of both kidneys without hydronephrosis. 2. Moderate volume of perihepatic ascites. QTc Monitoring Results from last 7 days Lab Units 08/27/24 1418 QTCINT ms 426 PRN Medications acetaminophen, 1,000 mg, oral, Q6H PRN sodium chloride, 10 mL, intravenous, PRN sodium chloride, 3 mL, intravenous, PRN Scheduled Medications [START ON 08/28/2024] aspirin, 81 mg, oral, Daily atorvastatin, 80 mg, oral, Daily at bedtime [START ON 08/28/2024] cholecalciferol, 25 mcg, oral, Daily [START ON 08/28/2024] colchicine, 0.6 mg, oral, Daily [START ON 08/28/2024] cyanocobalamin, 2,000 mcg, oral, Daily [START ON 08/28/2024] finasteride, 5 mg, oral, Daily furosemide, 40 mg, intravenous, Once insulin aspart, 0-13 Units, subcutaneous, TID [START ON 08/28/2024] insulin NPH, 15 Units, subcutaneous, QAM insulin NPH, 5 Units, subcutaneous, Daily at bedtime [START ON 08/28/2024] metoprolol succinate, 50 mg, oral, Daily [START ON 08/28/2024] pantoprazole, 40 mg, oral, Daily before morning meal [START ON 08/28/2024] predniSONE, 20 mg, oral, Daily Followed by [START ON 08/29/2024] predniSONE, 17.5 mg, oral, Daily Followed by [START ON 09/12/2024] predniSONE, 15 mg, oral, Daily rOPINIRole, 0.5 mg, oral, TID sodium chloride, 3 mL, intravenous, Q12H DEMOND [START ON 08/28/2024] sulfamethoxazole-trimethoprim, 1 tablet, oral, Daily tamsulosin, 0.4 mg, oral, Daily at bedtime warfarin, 1 mg, oral, Once ASSESSMENT / PLAN #Constrictive pericarditis secondary to cardiac surgery # S/p CABG September 2023 # S/p mechanical aortic valve (September 2023) on warfarin # Paroxysmal Afib # Lower extremity blisters, likely secondary to venous stasis # HLD Jong Emilia Harris is a 74 y.o. year old male presented 08/27/2024 with shortness a breath and worsening bilateral lower extremity edema with blistering lesions with medical history as previously outlined. Patient's clinical presentation is consistent with progressive volume overload from inadequate diuresis in the setting of his mixed constrictive-restrictive cardiac physiology. It does not seem like there is worsening pericardial disease since previous assessment (given no recent change to prednisone and lack of clinical symptom); however we can continue to monitor and evaluate CRP in the morning. It is reasonable to continue his ongoing prednisone taper with colchicine without any modifications and continue with IV diuresis and beta blockade. We will avoid any rapid/high volume diuresis to avoid hypotension. Patient's follow up plan included pericardial clinic 10/02 with repeat cardiac MRIand TTE. Patient's blistering lesions are likely related to volume overload and potential venous insufficiency resulting in increased interstitial space fluid leakage. Less likely to be infectious cellulitis--particularly in the setting of non improvement with cefdinir-- but can not exclusively rule out. Reasonable to withhold antibiotic, outline erythema and clinically assess tomorrow after diuresis. Patient would benefit from wound care. Plan Continue with additional diuresis 40 mg IV Lasix with clinical monitoring Continue prednisone taper with ongoing colchicine; Added CRP in the AM Plan is to follow-up in pericardial Clinic 10/02 with repeat cardiac MRI and TTE for considerationsof other management Holding antibiotics; outline/obdulio erythematous areas and assess clinical progression. Patient wouldbenefit from consult evaluation. Continue with warfarin management. Please refer to Dr. Farris's detailed note. Patient will be staffed in the morning.Please page the [employer] 2 [place] [phone] with any questions. Electronically signed by: Samy Chaudhry Jr., M.D., M.B.A. 08/27/24 8:17 PM CDT * Quentin Farris M.D. - 08/27/2024 4:30 PM CDT [facility] 2 Admission Note SUBJECTIVE CHIEF COMPLAINT: Blisters and swelling of the bilateral lower extremities HISTORY OF PRESENT ILLNESS Mr. Jong Harris is a 74 y.o. male who presents with lower extremity edema and shortness of breath. Medical comorbidities notable for HLD, HTN, DM type 2 on insulin in the setting of steroid use, AF on warfarin, mechanical aortic valve replacement and CABG x1 (Sep 2023) c/b post-operative acute effusive constrictive pericarditis in December 2023, CVA with R hemiplegia, and CKD3b. Cardiac medications include: Aspirin 81 mg daily, atorvastatin 80 mg daily, metoprolol succinate 50mg daily, prednisone 20 mg daily, torsemide 20 mg daily, warfarin with INR goal 2-3, colchicine 0.6mg daily. Background: Mr. Harris had a CABG and AVR in September 2023. He was diagnosed with post- operative acute effusive constrictive pericarditis in 2023; he was started on prolonged taper of steroids and colchicine. He completed steroid course in May with worsening of SOB and BLE edema; he was admitted to cardiology here in July 2024 where he was restarted on prednisone taper and increased colchicine to 0.6mg daily. He was also diuresed aggressively to his dry weight of 87kg. He is currently still on hisprednisone 20 mg daily. Prior to admission: Since his discharge on August 01, he has not felt back to his baseline exercise tolerance. At the time of the discharge, he could not walk a block without becoming short of breath. In the past 5days, however, this is worsened. He has worsening orthopnea and shortness of breath with exertion. Additionally, for the past week he has had worsening lower extremity edema and blistering. He went to an outside urgent care and they cultured the blister and prescribed a course of cefdinir. He has not had any fevers, chills, cough. ED course: In the ED, the patient's vital signs were stable. He was noted to 4+ pitting edema bilaterally and blistering. Labs were notable for elevated lactate 2.6 and BNP of 5662. Chest x-ray was unchanged from prior in July. EKG was NSR. Cardiology was consulted in the ED and recommended inpatient IV diuresis. He was given 40 mg of IV Lasix without any charted urine output and he was admitted to thecardiology 2 service. OBJECTIVE PHYSICAL EXAMINATION General: Alert, interactive, not acutely ill. Skin: Diffuse bruising of the upper extremities and torso. Eyes: Pupils equal and round. Sclera anicteric. ENT: Hearing grossly intact. Lungs: Clear to auscultation bilaterally. No wheezes or crackles. Heart: Regular rate and rhythm. No murmurs appreciated. 3-4+ pitting edema to the thighs. MSK: See QREADS for photos. Bilateral lower extremities with multiple tense, tender blisters without any obvious purulent discharge. Abdomen: Soft, distended, bowel sounds normoactive, nontender. No fluid wave is present. No shifting dullness ASSESSMENT / PLAN Mr. Harris is hospitalized on [facility] 2 for evaluation and management of heart failure exacerbation. Assessment: Heart failure secondary to volume overload likely due to inadequate diuresis. Less likely is re-emergence of his constrictive pericarditis and although he does have increased JVD he has no other signs of tamponade like hypotension or distant heart sounds. His dry weight was previously noted as 88 kg, and he is 86.4 kg here, he may have a new dry weight as he appears clinically volume overloaded. Blisters are likely secondary to venous stasis but less likely cellulitis or autoimmune process; theblister site that was cultured at the urgent care does appear somewhat red, but not warm and he hasno other systemic signs of infection. We will hold off on antibiotics for cellulitis for now. Main plan will be to continue his cardiac meds including those for pericarditis and spot dosing diureticsas he is clinically volume overloaded with elevated JVP, BNP. 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 Continue pantoprazole and Bactrim prophylaxis Spot dosing diuretics: s/p 40 mg IV Lasix in the ED with good response another 40 IV now Continue metoprolol succinate 50 mg daily Continue atorvastatin 80 mg daily # DM2 with steroid induced hyperglycemia on insulin Holding home dose of 25 units of NPH in the morning and 10 units of NPH in the evening 15 units NPH in the morning and 5 units NPH in the evening Moderate sliding scale VTE prophylaxis: On therapeutic warfarin Code status: Full Surrogate Decision Maker: , Lissy Living Situation Before Admission: Home Discharge Plan (equipment, therapy, and facility): Uncertain Plan discussed with RST CARD [address] Chaudhry, who was present during smallwood portions of the evaluation today. [place] [phone] with any questions. Will be staffed formally with the healthcare consultant tomorrow 08/28. Quentin Farris MD Neurology PGY1 (Internal Medicine Preliminary) Pager [phone] documented in this encounter Consult Notes * Gilbert Welch M.D. - 08/31/2024 12:12 PM CDTAssociated Order(s): IP CONSULT TO DERMATOLOGY Images from the original note were not included. DERMATOLOGY CONSULT PRIMARY SERVICE: RST CARD 2 This is an E-Consult. The patient was not personally interviewed or examined. The history and examination findings are based on the clinical documentation provided by a physician or provider who had personally interviewed and examined the patient. SUBJECTIVE REASON FOR CONSULT Patient with hx of SCC, recently recurrent blisters of LE. Here w/ c/f SSTI on Duricef and HF exacerbation. Q: bullous pemphigoid? Follow-up outpatient? HISTORY OF PRESENT ILLNESS Mr. Harris is a 74 y.o. male who is currently hospitalized at [facility] for CHF. Dermatology is consulted to evaluate leg blisters. ALLERGIES No Known Allergies OBJECTIVE VITAL SIGNS Vitals: 08/31/24 1145 BP: 103/81 Pulse: 66 Resp: 18 Temp: 36.6 ??C SpO2: 97% PHYSICAL EXAM Description: Photos display images of the legs. ASSESSMENT / PLAN # Edema bullae, lower extremities Favor edema blisters from third-spacing into the skin in the setting of CHF and 4+ pitting edema. Very low suspicion for autoimmune bullous disorder. This is reinforced by the presence of blisters only on the lower extremities where there is known venous stasis dermatitis and pitting edema, and thelack of blisters on other areas of the body as would be expected in the setting of autoimmune bullou s disorder. Recommendations: -Symptomatic drainage of blisters. Use a sterile needle to puncture blister and drain fluid. Leave the remaining overlying skin as a keratin dressing. Cover with plain Vaseline and wrap legs as tolerated. The patient has been virtually staffed with hospital attending, Obdulio Sevilla M.D., who agrees with this assessment and plan. Thank you for involving us in the patient's care. Please page the Dermatology Service at [phone] with questions. Gilbert Welch M.D. Dermatology Resident, PGY-3 Cosigned by Obdulio Sevilla M.D. at 08/31/2024 5:15 PM CDT Associated attestation - Obdulio Sevlila M.D. - 08/31/2024 5:15 PM CDT I personally reviewed pertinent aspects of the medical record, patient provided information and available photographs. I discussed the plan of care with the resident. I agree with the resident's findings and plan as documented. 74 year old male with blisters limited to lower extremities associated with edema and cellulitis Photos show swelling and erythema legs with blisters Assessment Localized blisters likely secondary to combination of cellulitis/dermatitis and swelling/edema leg Plan Continue treatment for both cellulitis /dermatitis and edema as you are doing Would leave blisters intact unless symptomatic. If symptomatic reasonable to puncture blister but leave roof of blister intact otherwise as biologic dressing * Wyatt Kaba M.D. - 08/29/2024 4:10 PM CDT Infectious Diseases Consult [facility] - Supervisory Note This is a supervisory note for Dr. Randle. I saw and evaluated the patient and I was present during the smallwood and critical portions of the service. I agree with the recommendations outlined below: Mr. 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 He has been admitted due to acute decompensated heart failure. We spoke to him and his in detail and this has been a recurrent issue. It seems that every time he gets fluid overloaded he has significant LE swelling with blister formation at the skin of the distal legs that usually resolve within a few days of fluid overload management. This time, it seems that he had the same issue and presented to urgent care where they obtained a superficial swab of oneof the open blisters that showed Pseudomonas growth. He was prescribed Cephalexin and then switchedto Cefdinir when they found he had Pseudomonas. A few days later, his reported blackening of the open blister wound and associated erythema. Notably, he does not have blisters in any other site of his body and his INR has remained therapeutic in the past couple of weeks. We think this is probably an episode of cellulitis, most likely driven by the usual pathogens in the skin (less likely Pseudomonas), which could be managed with a 7-day course of Cefazolin. We could transition him to Cefadroxil once he is discharged to complete up to 10 days if there are any delays in improvement of symptoms. Please, continue with local measures (leg elevation and wrapping). We will sign off at this time, please reconsult if the clinical condition of the patient changes or any additional questions orconcerns arise. * Andrew Randle M.D. - 08/29/2024 1:50 PM CDTAssociated Order(s): IP CONSULT TO INFECTIOUS DISEASES Infectious Diseases [facility] Consulting Service CONSULT NOTE SUBJECTIVE CHIEF COMPLAINT/REASON FOR CONSULT We are seeing Mr. Harris at the request of Mando Fang M.D., Ph* to give further recommendations for evaluation and management of Skin and soft tissue infection of right lower extremity. Picture in qreads. Concerns for pseudomonas? Abx?. HISTORY OF PRESENT ILLNESS Mr. Harris 74-year-old gentleman who is hospitalized on the cardiac service for heart failure exacerbation. Notably he has a recent history of postoperative acute constrictive pericarditis diagnosed in January 01, 2024. At that time, he was treated with prednisone (taper ended in May), colchicine, and diuretics. He was admitted for heart failure exacerbation in July same issue. He then pr esented on 08/27 for another heart failure exacerbation for which he is currently hospitalized. At the time of presentation, he had 4+ bilateral pitting edema we lower extremities, scattered intact serous filled blisters, in his left leg had small scabs in the posterior side. The legs had mild erythema and were painful to touch. The areas of erythema were cool to the touch. Notably, he was seen recently at urgent care for his legs 7-10 days ago (the patient does not remember the exact time and the records are not in the chart). There was a blister site that was culturedwith a superficial swab. Which later grew pseudomonas. The patient says that he was initially givenkeflex, but was called by the urgent care clinic and told that the pseudomonas that grew was not susceptible to keflex. He was switched to cefdinir as a result, which it was susceptible to, which he took for 4-5 days. Blood cultures were drawn after those resulted in pseudomonas growth and the patient was started on cefepime. ID was then consulted. Today, his right lower extremity is very erythematous, which is new. He says that while he has openwounds from popped blisters, that there is not usually redness. The patient does not have a history of cellulitis in his chart. He does have a history of lower extremity swelling in the setting of his constrictive pericarditis. Notably, he says that he has gottenblisters on his bilateral lower extremities whenever he gets lower extremity swelling, and says that this first occurred starting in November of this past year. REVIEW OF SYSTEMS He denies fevers, denies chills. Does endorse some pain where the extremity is red. OBJECTIVE VITAL SIGNS BP 114/68 (BP Location: Right arm;Upper, Patient Position: Sitting) Pulse 65 Temp 36.4 ??C (Oral) Resp 17 Ht 169 cm Wt 81.6 kg SpO2 98% BMI 28.57 kg/m?? PHYSICAL EXAMINATION General: well-appearing gentleman, sitting in bed with his at the bedside. Lower extremity: The bilateral lower extremities were bandaged initially, but we removed them. There is significant blistering of the bilateral lower extremities. A patch of erythema and warmth is present adjacent to an open wound on the right lower extremity. DIAGNOSTICS I have reviewed diagnostics. Studies of note include. ASSESSMENT / PLAN Mr. Hernandez is a 74 year old gentleman currently hospitalized with heart failure exacerbation. He has a history of recurrent bilateral lower extremity blisters in the setting of lower extremity edema, likely due to increases in hydrostatic pressure in the setting of volume overload. Fortunately, these blisters are isolated to areas of grade edema, rather than being widespread, making them less suggestive of an autoimmune condition like pemphigus vulgaris. The patient's right lower extremity does have erythema, tenderness to palpation, and warmth to touch. We do believe that this is consistent with cellulitis, with the likely entry points being the broken blisters on exam. It does not appear purulent on exam. Therefore, we recommend treating this as nonpurulent cellulitis with IV cefazolin for 7 days. This can be extended to 10 days based on clinical course at the discretion of the primary team. Please keep the patient's lower extremities wrappedand elevated. At discharge, he can transition to oral Duricef. RECOMMENDATIONS: IV Cefazolin 2g Q12h. (Dosed for renal dysfunction) Can transition to oral Duricef (if creatinine clearance is 25 or above, 500mg BID) at the time of discharge 7-10 days of antibiotics based on clinical course. Please keep legs wrapped and elevated If the patient gets bullae in non-gravity dependent areas, please consider derm consult. No ID follow up needed. No OPAT needed. . This plan was discussed with our fellow on service. We will sign off at this time. Please page the [facility] service pager at [phone] with questions. Thank you for the consultation. Andrew Randle M.D. Cosigned by Dl Barbour M.D. at 08/29/2024 3:54 PM CDT Associated attestation - Dl Barbour M.D. - 08/29/2024 3:54 PM CDT I participated in the smallwood portions of the service. I reviewed Dr. Randle and Dr. Castillo 's note. I agree with the documented findings and plan. Dl Barbour M.D. Lineworker, Infectious Diseases Pager: [phone] * Cony Calzada CEP - 08/28/2024 11:56 AM CDTAssociated Order(s): IP CONSULT TO CARDIAC REHABILITATION Thank you for the cardiac rehabilitation consult, however this patient does not currently have a qualifying diagnosis. If that changes or you have any questions we can be reached Sunday - Sunday, 7:30 to 4:00pm at [phone]. To qualify for participation in a Cardiac Rehabilitation program, the following CMS criteria must be met: Angina, Stable Coronary Artery Bypass Graft Coronary PTCA/Stent Heart Assist Device Heart Transplant Heart Valve Repair Heart Valve Replacement Myocardial Infarction To qualify for participation in a Cardiac Rehabilitation program for stable chronic heart failure the following CMS criteria must be met: EF less than or equal to 35% NYHA class II-IV symptoms despite being on optimal heart failure therapy for at least 6 weeks Stable - defined as no major cardiovascular hospitalization within 6 weeks * Ramses Roca [facility] - 08/28/2024 11:52 AM CDT Physical Therapy Inpatient Evaluation/Treatment SUBJECTIVE Patient's Name: Jong Harris Referring/Attending Provider: Mundo Camacho M.D. Reason for Referral: Physical Therapy Evaluate and Treat Pertinent Medical / Surgical History: Jong Harris has a past medical history of Acidosis Lactic (09/20/2023), Acquired Aortic Valve Disorder (09/19/2023), Aphasia (04/11/2019), Atrial Fibrillation Unspecified (HCC), Basal Cell Carcinoma Skin Other Parts Face (08/19/2023), Diabetes Mellitus Type 2 (HCC), Hyperlipidemia, Hypertension NOS, Murmur Heart, Pain Shoulder Right (04/11/2019), Squamous Cell Carcinoma Skin Other Parts Face (08/19/2023), Stenosis Aortic Valve Acquired, and Stroke (HCC). Jong Harris has a past surgical history that includes ANGIOGRAM (N/A, 08/21/2023); REPLACEMENT AORTIC VALVE (N/A, 09/19/2023); CABG X 1 - Vein (N/A, 09/19/2023); Ligation Left Atrial Appendage (N/A, 09/19/2023); Isolation Pulmonary Vein (N/A, 09/19/2023); and Echocardiogram Transesophageal (N/A,09/19/2023). History of Present Illness: Jong Harris is a 74 y.o. male who was admitted to [facility] in [place] on 08/27/2024 for Edema Leg [R60.0]. Relevant Medical History: Patient has a history of transient ischemic attack with right-sided hemiplegia (04/02/2019), coronary artery bypass graft (09/19/2023), type 2 diabetes mellitus, s/p aortic valve replacement (09/19/2023), and atrial fibrillation. Precautions Other Precautions: fall RST PT/OT Falls screen: Fall in the last 12 months: No Are you fearful of falling: Yes Pain Assessment: Pain Ratin/10 on a 0-10 point scale, Location: lower extremities at site of blisters Patient/Caregiver Goals: Return to home and Return to highest level of function Subjective Comments: Agreeable to therapy session. Home Living and Equipment: Lives with: Spouse/Significant other Receives help from: Spouse/Significant other and No help from others Type of Home: Apartment Home Layout: One Level Able to live on main level with bedroom/bathroom Laundry second level Multi-floor apartment complex with no elevator Home Access: Stairs to enter: Number of steps: 3-4, Railing: L handrail going into complex Stairs to alternate level: Number of steps: 6, Railing: R handrail going down to apartment (walks down to apartment from main entrance) Bathroom Accessibility: Accessible via walker Shower: Tub/Shower Level: Main Floor Enclosure Type: Curtain Bathroom Equipment: Grab bars in shower, Hand-held shower head, Tub transfer bench (not currently using) Toilet: Standard Toilet Level: Main Floor Toilet Equipment: Vanity next to toilet Assistive Device Owned: Front wheeled walker, Single point cane Adaptive Equipment Owned: Benzene Worker, Long Handled Shoe Horn Other DME Owned: Regular recliner, Regular flat bed Home Living Comments: Patient does not use assistive device for home ambulation. 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 Range of Motion: Upper extremities within functional limits Lower extremities within functional limits Balance: Static Sitting: Good (Maintains balance without support) Dynamic Sitting: Good (Maintains balance without support) Static Standing: Good (Maintains balance without support) Dynamic Standing: Fair (Maintains balance with handheld assist) Activity Tolerance: Endurance: Tolerates 10-20 minutes of activity Cognition: Alert, Oriented x 4 Outcome Measures: [facility] Inpatient Short Form: -[facility] Basic Mobility (V.2) How much help [...] 3-5 steps with a railing?: A Little -[facility] Basic Mobility (V.2) Raw Score: 22 AM-PAC Basic Mobility (V.2) Standardized Score: 47.4 Interpretation: Based on scoring guidelines using the raw score value: Those going to home had an average score at or above 18 Those going to facility had an average score at or below 17 Clinicians answer the -PAC Inpatient Short Form based on observed patient activity and/or clinical judgment (patient can be scored without physically performing each activity) Therapeutic Interventions: SIT TO STAND: Assistance Level: supervision Device: gait belt and front wheeled walker Surface: chair Assistance/Cueing: none required STAND TO SIT: Assistance Level: supervision Device: gait belt and front wheeled walker Surface: chair Assistance/Cueing: none required GAIT: Distance: 110 meters Assistance Level:supervision Device: gait belt and front wheeled walker Quality: antalgic, decreased gait speed, decreased step height, decreased step length Assistance/Cueing:verbal for walker navigation Delivery: assessed and instructed Comments: Patient demonstrated slight antalgic gait with right foot occasionally externally rotatedduring swing phase. Patient was provided with wide front wheeled walker as his right foot had a tendency to come into contact with walker leg while using a standard with walker. Education: -Role of PT in acute setting and collaborated with patient and/or family on goals and plan of care. -Durable medical equipment recommendations -Safe transfer techniques The patient/family educated on safe transfer techniques with functional mobility/activity. The patient's status was discussed and the following coordination of care occurred with the RN, Family/Caregiver, and OT Family/Caregiver Present: Patient was left in bedside chair, with nursing staff at end of session with call light in reach, all needs met and questions answered. Assessment Discharge Therapy Needs - PT: Ongoing skilled physical therapy If skilled therapy is recommended, skilled therapy can include physical therapy provided by home health, outpatient clinic, or a post-acute facility. The location of these services is determined by the patient's care team in partnership with patient/family. Level of Care Needed - PT: Assistance with walking and moving around the home, Assistance with stairs Barriers to Discharge Home: Fall risk, Inaccessible home environment Barriers to Discharge Comments: 3-4 stairs to enter complex, 6 stairs to reach level of living space Equipment Recommended - PT: 4-wheeled walker, 4-point cane (Wide base 4WW) From a physical therapy perspective, the level of care above has been recommended for Mr. Harris after hospital discharge. This level of care is based on his functional abilities during today's session. This may change throughout the hospital course and will be updated as appropriate. Clinical Impression: Currently, patient presents with decreased strength, increased pain, impaired dynamic balance, and cardiopulmonary impairments resulting in the following impaired bed mobility, impaired transfers, impaired gait, and impaired ability to complete stairs. Patient, caregiver, and therapist had a lengthy discussion about equipment recommendations. Patient has a significant fear of falling, yet he states that he does not enjoy using a gait aid and was not ambulating with one prior to hospitalization.He is open to trialing use of quad cane for short distance ambulation and stair navigation, and hiswife would like him to try a 4 wheeled walker for long distance ambulation in case he requires seated rest breaks. Patient performs [id number] transfers and gait with supervision using front wheeled walker. Will plan to reassess assist level with other gait aids next treatment session. Patient would benefit from continued skilled therapy treatment to address above impairments, maximize independence, and prepare for safe discharge. Physical therapy treatment is medically necessary to restore and maximize function, maximize safetyand facilitate discharge to home, teach and educate the patient and/or caregivers. Recommendations for mobility/activity while hospitalized: chair 3-4x/day with stand by assist and gait belt and front wheeled walker (2 hours max in chair flavio time) gait 3-4x/day with stand by assist and gait belt and front wheeled walker Plan PT Plan Comments: Assess bed mobility. Trial four wheeled walker long distance ambulation. Trial quad cane for short distance ambulation and stair navigation. Discuss home set up for compatibility with wide 4WW. Functional Goals: PT Inpatient Goals PT Goal #1: Patient will demonstrate modified independence with bed mobility without hospital features in order to progress toward prior level of function. PT Goal #2: Patient will demonstrate modified independence with standing ambulatory transfers usingleast restrictive device in order to progress toward prior level of function. PT Goal #3: Patient will demonstrate ability to ambulate 75 meters with modified independence usingleast restrictive device in order to safely navigate home environment. PT Goal #4: Patient will demonstrate modified independence with navigating 10 steps using least restrictive device in order to safely enter and exit place of residence. Jong Harris has Good rehab potential to meet the expected outcomes in a reasonable period oftime. Treatment Plan: Plan: Plan of care initiated PT Amount: 1 visit per day PT Frequency: 5 times per week PT Inpatient Duration : Until goals are met or hospital discharge Requires Inpatient Follow-Up: Yes PT - Next Inpatient Appointment: 08/29/24 Patient agrees with the plan of care and goals. Treatment interventions may include: Treatment/Interventions: Therapeutic exercise, Therapeutic functional activity, Neuromuscular re-education, Gait training Billing: Tiered PT Evaluation Codes: Comorbid Conditions: Cardiopulmonary disease, Diabetes, Cerebrovascular accident Personal Factors: Age, Needs assistive device, Living situation Examination elements: 4+ Clinical Presentation: Evolving Clinical Decision Making: Moderate complexity clinical decision making Time Spent with Patient Evaluations PT Eval - Mod Complexity: 15 min Therapeutic Interventions Gait Training (min): 30 min Time Tracking Total Timed Units (min): 30 min Total Treatment Time (min): 45 min Ceferino Roca, SPT Cosigned by Ximena Nicolas P.T., D.P.TJarrett at 08/28/2024 3:08 PM CDT Associated attestation - Ximena Nicolas P.T., D.P.T. - 08/28/2024 3:08 PM CDT This therapist has reviewed all documentation and supervised today's session. The therapist agrees with the plan developed in collaboration with the patient. Ximena Nicolas P.T., Emilia.P.T. * Marisol Lerma M.A., O.T., O.T.D. - 08/28/2024 9:52 AM CDT Occupational Therapy [facility] Inpatient Evaluation/Treatment SUBJECTIVE Patient's Name: Jong Harris Referring/Attending Provider: Mundo Camacho M.D. Reason for Referral: Occupational Therapy Evaluation and Treatment PERTINENT MEDICAL / SURGICAL HISTORY: Jong Harris has a past medical history of Acidosis Lactic (09/20/2023), Acquired Aortic Valve Disorder (09/19/2023), Aphasia (04/11/2019), Atrial Fibrillation Unspecified (HCC), Basal Cell Carcinoma Skin Other Parts Face (08/19/2023), Diabetes Mellitus Type 2 ([facility]), Hyperlipidemia, Hypertension NOS, Murmur Heart, Pain Shoulder Right (04/11/2019), Squamous Cell Carcinoma Skin Other Parts Face (08/19/2023), Stenosis Aortic Valve Acquired, and Stroke ([facility]). Jong Harris has a past surgical history that includes ANGIOGRAM (N/A, 08/21/2023); REPLACEMENT AORTIC VALVE (N/A, 09/19/2023); CABG X 1 - Vein (N/A, 09/19/2023); Ligation Left Atrial Appendage (N/A, 09/19/2023); Isolation Pulmonary Vein (N/A, 09/19/2023); and Echocardiogram Transesophageal (N/A,09/19/2023). History of Present Illness: Jong Harris is a 74 y.o. male who was admitted to [facility] in [place] on 08/27/2024 for Edema Leg [R60.0]. Relevant Medical History: Patient presents with LE edema, blisters, dyspnea on exertion. Precautions Other Precautions: fall Falls screen: Fall in the last 12 months: No Are you fearful of falling: Yes, its always on my mind Pain Assessment: Pain not reported during session. Subjective Comments: Agreeable to therapy session. Patient/Caregiver Goals: Discharge home Return to highest level of function Home Living and Equipment: Lives with: Spouse/Significant other Receives help from: Spouse/Significant other and No help from others Type of Home: Apartment Home Layout: One Level Able to live on main level with bedroom/bathroom Laundry second level Lives in a multi-floor apartment complex with no elevator Home Access: Stairs to enter: Number of steps: 3-4, Railing: left handrail going into complex Stairs to alternate level: Number of steps: 6, Railing: right handrail going down to apartment, walks down to apartment from main entrance Bathroom Accessibility: Accessible via walker Shower: Tub/Shower Level: Main Floor Enclosure Type: Curtain Bathroom Equipment: Grab bars in shower, Hand-held shower head, Tub transfer bench (not currently using) Toilet: Standard Toilet Level: Main Floor Toilet Equipment: Vanity next to toilet Assistive Device Owned: Front wheeled walker, Single point cane Adaptive Equipment Owned: Benzene Worker, Long Handled Shoe Horn Other DME Owned: Regular recliner, Regular flat bed Prior Level of Function and Mobility: Basic Activities of Daily Living: Modified Independent: LB dressing Required Assistance: LB dressing Depends on how swollen legs are. 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 Subjective Dyspnea Scale (Possible range of +1 mild to +4 severe): +2 = Mild, some difficulty, noticeable to observer Evaluation Assessment: STRENGTH: Upper extremities within functional limits Lower extremities within functional limits RANGE OF MOTION: Upper extremities within functional limits Lower extremities within functional limits BALANCE: Static Sitting: Good (Maintains balance without support) Dynamic Sitting: Good (Maintains balance without support) Static Standing: Good (Maintains balance without support) Dynamic Standing: Fair (Maintains balance with handheld assist) ACTIVITY TOLERANCE: Endurance: Tolerates 10-20 minutes of activity HEARING/VISION: Hearing: Hearing Intact Baseline Vision/Correction: Wears glasses all the time DOMINANT HAND: Right and learned to use left due to stroke Patient reports some numbness tingling in right big toe (some toe drag from stroke), it is occasional. Outcome Measures: [facility] Inpatient Short Form: Putting on and taking off regular lower body clothing?: None Putting on and taking off regular upper body clothing?: None Taking care of personal grooming such as brushing teeth?: None Bathing (including washing, rinsing, drying)?: None Toileting, which includes using toilet, bedpan, or urinal?: None Eating meals?: None Daily Activities Raw Score (max 24): 24 Daily Activities Standardized Score: 57.54 Interpretation: Based on scoring guidelines using the raw score value: Those going to home had an average score at or above 18 Those going to facility had an average score at or below 17 Clinicians answer the [facility] Inpatient Short Form based on observed patient activity and/or clinical judgment (patient can be scored without physically performing each activity). Cognition: Will further assess and monitor as warranted Cognitive Deficits: Impaired insight, Safety/judgement concerns Therapeutic Interventions: ACTIVITIES OF DAILY LIVING: GROOMING - Assist Level: modified independent - Patient Location: standing at sink - Activity: washing face, washing hands - Therapist Delivery: assessed, facilitated - Assist/Cues Provided: none for none - Tolerated: Mild dyspnea on exertion, no assistive device use. LOWER BODY DRESSING - Assist Level: modified independent - Patient Location: seated on couch in room - LB Dressing Item: socks, shorts - Therapist Delivery: assessed, facilitated, instructed - Assist/Cues Provided: verbal for safety - Instructed patient in safety considerations for dressing, patient reports dressing sitting and demonstrates ability to manage with forward flexion/figure four positioning with increased time, good standing balance to manage without assistive device in standing. TOILETING - Assist Level: modified independent - Patient Location: standing urinal - Activity: urinal management - Therapist Delivery: assessed - Assist/Cues Provided: none for none FUNCTIONAL TRANSFERS: SIT<>STAND - Assist Level: stand by assist - Device: front wheeled walker and gait belt, no assistive device and gait belt - Surface: bed, chair - Therapist Delivery: assessed, facilitated, instructed - Assist/Cues: verbal and visual for upright posture, safety - Patient able to complete sit to stand transfers in room without gait device, introduced walker inthe hallway and patient able to safely use upon return to room when sitting at chair. FUNCTIONAL MOBILITY: Mobility performed to practice household distances with supervision/stand by assistance and front wheeled walker and gait belt In-room mobility performed with supervision/stand by assistance and no assistive device and gait belt Education/Training Provided: Provided education on role of occupational therapy in the acute setting. Collaborated with patient and/or family on goals and plan of care. Call light safety: - Instructed patient in the functional use of the call light device and review of appropriate scenarios for use. Education has the ultimate goal to increase safety and reduce delirium through appropriate access to nursing staff and environmental controls. Functional Transfers: - Provided instruction and cues during functional sit to/from stand transfers, including body alignment to surface, appropriate hand placement, and optimal placement of extremities to optimize safetyand technique. Home Safety/Fall Prevention: - Educated patient/caregiver regarding home safety and fall prevention strategies to promote safetyand independence including use of recommended assistive device, wearing non-slip footwear, ensuringclear pathways, removing throw rugs, and good lighting throughout the home. Activity Recommendations During Hospitalization: Educated patient and/or caregiver on the importance of activity and mobility to improve pulmonary function/hygiene, activity tolerance, strength, and overall well-being while in . - Eat ALL meals in chair - Ambulate/transfer into chair 3-5x/day - Active engagement in daily self-care routine (hygiene and grooming, etc.) Activity Modification: - Educated and instructed patient on activity modification and how to apply those techniques to activities of daily living. Abdominal/Diaphragmatic Breathing: - Educated patient on the benefits of diaphragmatic breathing which is also known as abdominal breathing. This style of breathing distributes oxygen more effectively and can lower anxiety, pain, and discomfort. It may also lower heart rate and blood pressure, increase blood oxygen levels, relax muscle tension,and reduce stress. Walker management and use for increasing activity tolerance, safety with further distance ambulation and consideration of 4WW purchase/use. Team Communication: The patient's status was discussed and coordination of care occurred with RN, PT Patient was left in bedside chair at end of session with call light in reach, all needs met and questions answered. Assessment Discharge Therapy Needs - OT: No further skilled therapy If skilled therapy is recommended, skilled therapy can include occupational therapy provided in home health, outpatient or post-acute facility. The location of these services is determined by patient's care team in partnership with patient/family. Level of Care Needed - OT: Assistance with transportation, Assistance with housekeeping, Assistancewith shopping Barriers to Discharge Home: Fall risk, Inaccessible home environment Clinical Impression: Currently, patient presents with impairments including decreased activity tolerance resulting in functional deficits including impaired functional mobility and decreased independence with self care tasks. Patient resides with spouse in an apartment where he must navigate stairs. He reports steady decline in overall function since completion of cardiac rehab, further admitting a sedentary lifestyle. Today, patient demonstrates ambulation in room with supervision and no gait aid, he tolerates further ambulation in the hallway well with FWW, OT provided education on benefits of gait device for progressive mobility efforts (outside apartment). Patient demonstrates some skepticism but admits it is easier for him to ambulate farther distances with less dyspnea. Discussed ongoing OT plan of careincluding UE HEP, activity modifications/energy conservation, and progression of dynamic standing balance. Anticipate return home with spouse assistance to be a reasonable plan. The patient will benefit from ongoing occupational therapy services while hospitalized in order to improve engagement and independence in meaningful occupations. Plan OT Plan Comments: Next session: shower; UE HEP; dynamic standing balance activities Functional Goals: OT Goal #1: Patient will demonstrate independence with UE HEP utilizing visual aid/handout to increase strength and activity tolerance for improved engagement in daily tasks. OT Goal #1 Status: Ongoing OT Goal #2: Patient will be able to verbalize understanding of activity modification and energy conservation strategies to improve functional performance and efficiency with activities of daily living by discharge. OT Goal #2 Status: Progressing OT Goal #3: Patient will safely complete dynamic household task with least restrictive gait device and no loss of balance to return to prior level of function. OT Goal #3 Status: Ongoing OT Goal #4: Patient and/or caregiver will verbalize understanding of DME recommendations to optimize safety within least restrictive environment at dismissal. OT Goal #4 Status: Achieved Progress: Progressing toward goals Rehab potential: Mr. Harris has excellent potential to achieve established occupational therapy goals within the time frame outlined below. OT Frequency: OT Amount: 1 visit per day OT Frequency: 3 times per week OT Inpatient Duration : Until goals are met or hospital discharge Requires Inpatient OT Follow-Up: Yes OT - Next Inpatient Appointment: 08/29/24 Plan: Plan of care initiated Treatment interventions may include: Treatment Interventions: Therapeutic exercise, Therapeutic functional activity, Self-care/home management, Cognitive skills training Occupational Therapy Attestation Statement: Patient agrees with the plan of care and goals. Billing: Tiered OT Evaluation Codes: Comorbid Conditions: Cardiopulmonary disease, Diabetes, Cerebrovascular accident Personal Factors: Age, Needs assistive device, Living situation Occupational Profile and History review: Expanded Performance Deficits: 1 - 3 performance deficits Evaluation Complexity: Low Time Spent with Patient Evaluations OT Eval - Low Complexity : 12 min Therapeutic Interventions Home Management Training (min): 16 min Time Tracking Total Timed Units (min): 16 min Total Treatment Time (min): 28 min Marisol Lerma M.A., O.T., O.T.D. documented in this encounter Nursing Notes * Kwesi Thayer R.N. - 08/31/2024 3:11 PM CDT Problem: PAIN - ADULT Goal: PT VERBALIZES/DEMONSTRATES ADEQUATE COMFORT LEVEL OR BASELINE Outcome: Completed Problem: KNOWLEDGE DEFICIT Goal: Patient/family/caregiver demonstrates understanding of disease process, treatment plan, medications, and discharge instructions Outcome: Completed Problem: INFECTION - ADULT Goal: Absence of infection during hospitalization Outcome: Completed Problem: SKIN/TISSUE INTEGRITY Goal: Skin/Tissue integrity maintained or improved Outcome: Completed Goal: Oral and Nasal mucous membranes remain intact Outcome: Completed Problem: SAFETY ADULT Goal: Maintain a safe environment Outcome: Completed Problem: DISCHARGE PLANNING Goal: Patient discharge needs identified Outcome: Completed Problem: SAFETY ADULT - RISK FOR FALL AND OR FALL INJURY Goal: Patient remains free from fall/fall injury Outcome: Completed Problem: CARDIOVASCULAR - ADULT Goal: Maintains optimal cardiac output and hemodynamic stability Outcome: Completed Goal: Achieve stable or improve cardiac rhythm Outcome: Completed Problem: RESPIRATORY - ADULT Goal: Achieves optimal ventilation and oxygenation Outcome: Completed Problem: POTENTIAL OR ACTUAL PRESSURE INJURY-ADULT Goal: Manage sensory Perception deficits to maintain and/or improve skin integrity Outcome: Completed Goal: Maintain optimal skin moisture to ensure or improve skin integrity Outcome: Completed Goal: Achieve optimal activity and/or mobility to maintain or improve skin integrity Outcome: Completed Goal: Nutrient intake appropriate for improving, restoring or maintaining skin integrity Outcome: Completed Goal: Minimize friction and/or shear to maintain or improve skin integrity Outcome: Completed Problem: Compromised Skin Integrity Goal: Skin/Tissue integrity maintained or improved Outcome: Completed Goal: Oral and Nasal mucous membranes remain intact Outcome: Completed Goal: Incisions, wounds, or drain sites healing without S/S of infection Outcome: Completed Problem: Incontinence and/or Moisture Goal: Skin integrity is maintained or improved Outcome: Completed Problem: METABOLIC/FLUID AND ELECTROLYTES - ADULT Goal: Electrolytes maintained within normal limits Outcome: Completed Goal: Hemodynamic stability and optimal renal function maintained Outcome: Completed Goal: Glucose maintained within prescribed range Outcome: Completed Shift Goals: Clinical Goals for the Shift: Patient will diurese optimally during the shift. Identify possible barriers to meeting goals/advancing plan of care: None End of Shift Summary: Vital signs was stable at discharge. Patient was discharged home with family.Education done and accepted. * Sharath Krishna R.N. - 08/30/2024 10:18 PM CDT Problem: METABOLIC/FLUID AND ELECTROLYTES - ADULT Goal: Glucose maintained within prescribed range Outcome: Progressing Note: David's glucose was 309 HS. Service was notified and a one time dose of 5 units was ordered. * Kwesi Thayer R.N. - 08/30/2024 3:45 PM CDT Problem: PAIN - ADULT Goal: PT VERBALIZES/DEMONSTRATES ADEQUATE COMFORT LEVEL OR BASELINE Outcome: Progressing Problem: INFECTION - ADULT Goal: Absence of infection during hospitalization Outcome: Progressing Problem: SKIN/TISSUE INTEGRITY Goal: Skin/Tissue integrity maintained or improved Outcome: Progressing Problem: SAFETY ADULT Goal: Maintain a safe environment Outcome: Progressing Problem: DISCHARGE PLANNING Goal: Patient discharge needs identified Outcome: Progressing Problem: CARDIOVASCULAR - ADULT Goal: Maintains optimal cardiac output and hemodynamic stability Outcome: Progressing Problem: Compromised Skin Integrity Goal: Skin/Tissue integrity maintained or improved Outcome: Progressing Shift Goals: Clinical Goals for the Shift: Patient will have an adequate urine output during the shift. Identify possible barriers to meeting goals/advancing plan of care: None End of Shift Summary: Patient is on oral Furosamide. He should be going to MRI tomorrow then possible discharged home tomorrow. Patient vitals are stable, will continue to monitor. * Marva Heck R.N. - 08/29/2024 5:30 AM CDT Shift Goals: Clinical Goals for the Shift: patient will diurese optimally today Identify possible barriers to meeting goals/advancing plan of care: Problem: CARDIOVASCULAR - ADULT Goal: Maintains optimal cardiac output and hemodynamic stability Outcome: Progressing End of Shift Summary: Patient remained hemodynamically stable during the shift. VSS. 80 mg IV Lasixgiven during the night, net -1.725 mL. Remained safe and free from falls. * Mohan Reed R.N. - 08/28/2024 7:10 PM CDT Shift Goals: Clinical Goals for the Shift: patient will diurese optimally today Identify possible barriers to meeting goals/advancing plan of care: test/procedure/consults End of Shift Summary: BP 123/78 (BP Location: Left arm;Upper, Patient Position: Sitting) Pulse 63 Temp 36.4 ??C (Oral) Resp 23 Ht 169 cm Wt 83.1 kg SpO2 98% BMI 29.10 kg/m?? \ Patient is pleasant and likes to be independent Problem: PAIN - ADULT Goal: PT VERBALIZES/DEMONSTRATES ADEQUATE COMFORT LEVEL OR BASELINE Outcome: Progressing Note: Pain in his feet , high tolerance 5/10 , tylenol given , IV dilaudid PRN is available but he doesn't like it Problem: SAFETY ADULT Goal: Maintain a safe environment Outcome: Progressing Note: Call light appropriate documented in this encounter ED Notes * Obdulio Salinas P.A.-C. - 08/27/2024 2:00 PM CDT Images from the original note were not included. CHIEF COMPLAINT Leg Swelling HPI Jong Harris is a 74 y.o. 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 PER PATIENT The patient complains of worsening lower extremity edema that has been ongoing but seemingly worsened in the last few days. They report he has been in the ER/admitted multiple times recently for fluid overload and pericarditis, stating he is currently on torsemide and a prednisone taper. However, he did have a skin swab recently of a dried blister that showed pseudomonas, so patient was switched to Cefdinir. Currently, they rate their lower extremity discomfort as a 3/10 with a sore aching quality well denying radiation. He was not note any obvious provoking or palliating factors. He had associated shortness of breath that is seemingly has worsened the same time as his lower extremity edema, well denying any fever, chills, cough, chest pain, or other complaints PER EMR 07/25/24: ECHO 1. 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 2. Status post 23 mm On-X mechanical aortic valve prosthesis, CABG x1, PVI, and DAHIANA amputation (19-SEP-2023, [place]). 3. Small left ventricular chamber size. Abnormal ventricular septal motion (post-operative) withoutother regional wall motion abnormalities. Calculated left ventricular ejection fraction 65%. 4. Left ventricular cardiac index 2.71 l/min/m2. 5. Elevated left ventricular filling pressure. 6. Normal right ventricular chamber size with mildly reduced systolic function. 7. Unable to estimate right ventricular systolic pressure due to an inadequate Doppler regurgitation signal. 8. Status post 23 mm On-X mechanical aortic valve prosthesis (19-SEP-2023). Aortic valve prosthesissystolic mean gradient 3 mmHg. Dimensionless index 0.83. Normal washing jets without other prosthetic valve regurgitation. No periprosthetic regurgitation. 9. Enlarged inferior vena cava size with reduced inspiratory collapse (<50%). 10. No pericardial effusion. 11. Large left pleural effusion. 12. Compared to the report of 12/24/2023 the following changes have occurred: the current study's findings are consistent with mixed constrictive-restrictive physiology, see comments. Side by side comparison of images performed. History Social: Non-Contributory History provided by: Patient, family and medical records History Limitations: None Interpretor: None MEDICAL HISTORY Past Medical History: Diagnosis Date Acidosis Lactic 09/20/2023 Acquired Aortic Valve Disorder 09/19/2023 Aphasia 04/11/2019 Atrial Fibrillation Unspecified (HCC) Basal Cell Carcinoma Skin Other Parts Face 08/19/2023 Diabetes Mellitus Type 2 (HCC) Hyperlipidemia Hypertension NOS Murmur Heart Pain Shoulder Right 04/11/2019 Squamous Cell Carcinoma Skin Other Parts Face 08/19/2023 Stenosis Aortic Valve Acquired Stroke (HCC) SURGICAL HISTORY Past Surgical History: Procedure Laterality Date CABG [...] Miller M.D., M.P.H.; Location: [facility] FAMILY HISTORY Family History Problem Relation Name Age of Onset Lymphoma Mother Carmen Heart disease Father No Known Problems Sister Alzheimer's disease Brother No Known Problems Brother Diabetes Maternal Grandfather Heart attack Maternal Grandfather age 60s Prostate cancer Paternal Grandfather Bicuspid aortic valve Daughter Bicuspid aortic valve Son AVR - Aortic valve replacement Son SOCIAL HISTORY Social History Socioeconomic History Marital status: Tobacco Use Smoking status: Never Smokeless tobacco: Never Tobacco comments: Smoked recreationally over 40 years ago - a few cigarettes once in a while. Vaping Use Vaping status: never used Substance and Sexual Activity Alcohol use: Never Drug use: Yes Types: Other Comment: CBD gummies- stopped 6 weeks ago Sexual activity: Defer Social Drivers of Health Food Insecurity: No Food Insecurity (07/25/2024) Hunger Vital Sign Worried About Running Out of Food in the Last Year: Never true Ran Out of Food in the Last Year: Never true Transportation Needs: No Transportation Needs (07/25/2024) PRAPARE - Transportation Lack of Transportation (Medical): No Lack of Transportation (Non-Medical): No Intimate Partner Violence: Not At Risk (07/25/2024) Humiliation, Afraid, Rape, and Kick questionnaire Fear of Current or Ex-Partner: No Emotionally Abused: No Physically Abused: No Sexually Abused: No Housing Stability: Low Risk (07/25/2024) Housing Stability Housing: Living Situation: I have a steady place to live REVIEW OF SYSTEMS Gen: Skin: blisters Neck/Spine: HENT: Eyes: Cards: Pulm: sob Abd: Rectal: Pelvis/: MSK: leg swelling Neuro: Psych: ? PHYSICAL EXAM Vitals: 08/27/24 1628 BP: 130/73 Pulse: 68 Resp: Temp: SpO2: 99% Constitutional: Nursing note and vitals reviewed. No distress. HENT: Head: Normocephalic and atraumatic. Mouth/Throat: Mucous membranes are moist. Eyes: Conjunctivae are normal. Cardiovascular: Normal rate, regular rhythm and normal heart sounds. Pulmonary/Chest: Effort normal and breath sounds normal. No tachypnea. He has no wheezes. Some coarse lung sounds, but no wheezing. Musculoskeletal: General: Edema (Patient with 4+ pitting edema bilaterally.) present. Comments: Able to move all 4 extremities equally. Neurological: Alert. Skin: Skin is warm and dry. Blister (Please see pictures below, but obvious fluid overload blisterspresent.) noted. He is not diaphoretic. Bilateral lower extremity overlying skin changes consistent with a venous stasis or chronic skin changes Psychiatric: He has a normal mood and affect. RLE: LLE: 07/30/24: IMAGES Left ankle anterior ? DIFFERENTIAL & PLAN Jong Nieto Steven is a 74 y.o. 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 My working diagnosis at this time is fluid overload leading to blisters and edema, but my differential includes bronchospasm or other exacerbation, pneumonia, bronchitis, influenza or other viral illness, acute coronary syndromes, heart failure, atrial fibrillation or other arrhythmia, pulmonary emb olism, anxiety, metabolic dysfunction, thyroid dysfunction, liver dysfunction, kidney dysfunction among others. He does have a history of pericarditis as well which could be contributing ASSESSMENT Patient's vital signs unremarkable showing no fevers, significant hypotension / hypertension, tachycardia, or hypoxia. EKG is unremarkable with no obvious STEMI Chest x-ray is negative for any obvious consolidation. BNP is elevated from prior. Lactate is slightly elevated, but this is consistent with a prior. I do not believe this representsan acute sepsis, so fluid resuscitation and antibiotics were not started. Creatinine it was slightly improved from prior. Ultimately, patient was well-appearing. He was not hypoxic nor had any other vital sign abnormalities. I did consult our cardiology consult team here in the emergency department who felt that due to his evidence of fluid overload in his complex cardiac history he would do better as an inpatient fordiuresis. 40 mg of IV Lasix were ordered Please see the ED course for additional evaluation, imaging and laboratory findings, and further medical decision-making. ED COURSE ED Course as of 08/27/24 1637 SunAug 27, 2024 1347 I reviewed the patient's chart. This includes but is not limited to prior inpatient records, prior outpatient and office records, prior radiology scans, an outside ED reports. 1350 I met with the patient for an initial history and physical exam 1430 Consult Cardiology for possible medication change. Do not believe patient requires admission at this time given that blood pressure, heart rate, and SBO to are within normal range. 1438 Personally reviewed EKG which shows no STEMI. No obvious change from prior 1459 DX Chest AP or PA and Lateral 2 Views No significant change since 07/24/2024. Small left and trace right pleural effusions. Similar atelectasis of the left lung base. Azygous fissure. No discernible pneumothorax. Sternotomy. Mediastinal clips. Loop recorder. Cardiac valve prosthesis. Calcified aorta. Degenerative changes of the visualized skeleton. 1506 Spoke with cardiology about the patient 1511 Leukocytes: 8.7 1511 Neutrophils(!): 7.51 1522 INR: 3.1 On warfarin 1526 Lactate(!): 2.6 1526 Spoke with our cardiology consults team who recommend admission at this time given complexity of case. 1527 I rechecked on the patient 1541 NT-Pro BNP(!): 5662 Increasing from prior consistent with exam showing fluid overload 1635 Admission handoff is complete Final Diagnoses: as of 08/27/24 1637 Edema Leg DIAGNOSIS Edema Leg ? Obdulio Salinas PA-C pager: [phone] [facility] Emergency Department [address] [place] [phone] Obdulio Salinas P.A.-C. 08/27/24 1637 * Amber Oro R.N. - 08/27/2024 1:43 PM CDT Patient comes into with bilateral leg blisters. Patient has been being seen for the blisters for some time and various antibiotics have been used, however, Cultures were taken of the fluid collections on 08/22 which was found to have pseudomonas, so patient was switched to Cefdinir, but patient reports blisters have gotten worse. BP (!) 146/95 (BP Location: Right arm, Patient Position: Sitting) Pulse 65 Temp 36.8 ??C (98.2 ??F) (Oral) Resp 20 Wt 86.4 kg SpO2 99% BMI 30.25 kg/m?? Past Medical History: Diagnosis Date Acidosis Lactic 09/20/2023 Acquired Aortic Valve Disorder 09/19/2023 Aphasia 04/11/2019 Atrial Fibrillation Unspecified (HCC) Basal Cell Carcinoma Skin Other Parts Face 08/19/2023 Diabetes Mellitus Type 2 (HCC) Hyperlipidemia Hypertension NOS Murmur Heart Pain Shoulder Right 04/11/2019 Squamous Cell Carcinoma Skin Other Parts Face 08/19/2023 Stenosis Aortic Valve Acquired Stroke (HCC) Amber Oro R.N. 08/27/24 1346 documented in this encounter Miscellaneous Notes * Hospital Course - Kev Ruff M.D., Ph.D. - 08/28/2024 1:52 PM CDT Background Jong Harris is a 74-year-old male who presented with lower extremity edema, shortness of breath, and bilateral lower extremity blistering, concerning for heart failure exacerbation in the setting of volume overload secondary to inadequate diuresis. Mr. Harris had a CABG and AVR in September 2023. 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 He completed steroid course in May with worsening of SOB and BLE edema; he was admitted to cardiology here in July 2024 where he was restarted on prednisone taper and increased colchicine to 0.6 mg daily. He was also diuresed aggressively to his dry weight of 87kg. He was stillon his prednisone 20 mg daily at the time of presentation. Prior to Admission Since his discharge on August 01, he had not felt back to his baseline exercise tolerance and experiencing orthopnea. This worsened over the 5 days prior to presentation. Additionally, for the week prior to admission he had worsening lower extremity edema and blistering. He went to an outside urgent care and they cultured the blister and prescribed a course of cefdinir without any systemic signs of infection. His weight at the time of admission was 86.4 kg. ED course: BNP was elevated to 5662. EKG was NSR. He was given 40 mg of IV Lasix without any charted urine output and he was admitted to the cardiology 2 service. Hospital Course His examination was notable for significant volume overload with 4+ pitting edema bilaterally, elevated JVP with Kussmaul sign, but no other signs of tamponade, and bilateral lower extremity blistering without purulence or erythema. Oral cefdinir was stopped. All other cardiac medications were pablo nued except for his home dose of diuretic, including steroids and colchicine. He was diuresed aggressively with weight from 86.4 kg to 80.4 kg. TTE on 08/29/24 demonstrated ejection fraction of 68% with findings notable for abnormal septal motion, mild mitral valve regurgitation and enlarged inferior vena cava. No evidence for pericardial effusion or constrictive pericarditis. There was concern for cellulitis affecting the right lower extremity due to erythema and development of sores on 08/29/24. Sores were also present on the left lower extremity without significant erythema. ID was consulted and the patient was started on cefazolin on 08/29/24 which was continued until 08/30/24, at which time he was started on oral antibiotics with Duricef [address] Tellez, the pericardial specialist, is scheduled to see him outpatinet in September. He is concerned for progression of pericardial disease. Recommended cardiac MRI after heart failure is better controlled. Disposition The patient was discharged to home on 08/31 in fair condition. They should follow up with their primary care provider in the next 2-3 days regarding his renal function and to discuss changes in medication. documented in this encounter Plan of Treatment Upcoming Encounters Date Type Department Care Team (Latest Contact Info) Description 09/05/2024 2:45 PM CDT Appointment Department of Radiology, [facility] in [address] [phone] Deven Clement M.D., M.S. [address] [place] [phone] 09/08/2024 7:15 AM CDT Clinical Communication Virtual Review in [place], [place] [address] [place] [phone] 09/16/2024 1:00 PM [employer]LE [employer]ELOPER [facility] [address] [phone] Deven Clement M.D., M.S. [address] [place] [phone] 09/16/2024 1:20 PM [employer]LE [employer] DEVELOPER Appointment Department of Laboratory Medicine and Pathology, [facility] in [place], [place] [address] [place] [address] Deven Clement M.D., M.S. [address] [place] [phone] 09/16/2024 1:40 PM [employer]ELOPER Ancillary Procedure Department of Cardiovascular Medicine in [place], [place] [address] [place] [phone] Deven Clement M.D., M.S. [address] [place] [phone] 09/16/2024 4:00 PM [employer]ELOPER Comprehensive Visit Department of Cardiovascular Medicine in [place], [place] [address] [place] [phone] Keagan Tellez M.D. [address] [place] [phone] Pending Results Name Type Priority Associated Diagnoses Date /Time Bacteria / Mee Culture, Blood #1 Microbiology STAT 08/29/2024 5:0 1 PM CDT Bacteria / Mee Culture, Blood #2 Microbiology STAT 08/29/2024 5:1 2 PM CDT documented as of this encounter Procedures Procedure Name Priority Date/Time Associated Diagnosis Comments GLUCOSE POCT, B Routine 08/31/2024 11:50 AM CDT GLUCOSE POCT, B Routine 08/31/2024 11:48 AM CDT PROTHROMBIN TIME (PT), P Routine 08/31/2024 8:35 AM CDT CBC WITH DIFFERENTIAL, B Routine 08/31/2024 8:35 AM CDT BASIC METABOLIC PANEL, S/P Routine 08/31/2024 8:35 AM CDT GLUCOSE POCT, B Routine 08/31/2024 6:58 AM CDT GLUCOSE POCT, B Routine 08/31/2024 3:31 AM CDT GLUCOSE POCT, B Routine 08/30/2024 9:07 PM CDT GLUCOSE POCT, B Routine 08/30/2024 4:45 PM CDT GLUCOSE POCT, B Routine 08/30/2024 11:55 AM CDT ADULT OXYGEN THERAPY Routine 08/30/2024 8:00 AM CDT PROTHROMBIN TIME (PT), P Routine 08/30/2024 7:48 AM CDT CBC WITH DIFFERENTIAL, B Routine 08/30/2024 7:48 AM CDT MAGNESIUM, S Routine 08/30/2024 7:48 AM CDT BASIC METABOLIC PANEL, S/P Routine 08/30/2024 7:48 AM CDT GLUCOSE POCT, B Routine 08/30/2024 6:34 AM CDT GLUCOSE POCT, B Routine 08/29/2024 9:36 PM CDT ADULT OXYGEN THERAPY Routine 08/29/2024 8:01 PM CDT BACTERIA / MEE CULTURE, BLOOD STAT 08/29/2024 5:12 PM CDT LACTATE FOR SEPSIS WITH REFLEX STAT 08/29/2024 5:01 PM CDT BACTERIA / MEE CULTURE, BLOOD STAT 08/29/2024 5:01 PM CDT GLUCOSE POCT, B Routine 08/29/2024 4:37 PM CDT (TTE) 2D ECHO DOPPLER COLOR Routine 08/29/2024 2:04 PM CDT GLUCOSE POCT, B Routine 08/29/2024 11:26 AM CDT PROTHROMBIN TIME (PT), P Routine 08/29/2024 8:12 AM CDT CBC WITHOUT DIFFERENTIAL, B Routine 08/29/2024 8:12 AM CDT MAGNESIUM, S Routine 08/29/2024 8:12 AM CDT BASIC METABOLIC PANEL, S/P Routine 08/29/2024 8:12 AM CDT ADULT OXYGEN THERAPY Routine 08/29/2024 8:01 AM CDT GLUCOSE POCT, B Routine 08/29/2024 6:51 AM CDT GLUCOSE POCT, B Routine 08/28/2024 9:42 PM CDT ADULT OXYGEN THERAPY Routine 08/28/2024 8:00 PM CDT GLUCOSE POCT, B Routine 08/28/2024 4:44 PM CDT GLUCOSE POCT, B Routine 08/28/2024 11:48 AM CDT ADULT OXYGEN THERAPY Routine 08/28/2024 8:01 AM CDT PROTHROMBIN TIME (PT), P Routine 08/28/2024 7:32 AM CDT CBC WITHOUT DIFFERENTIAL, B Routine 08/28/2024 7:32 AM CDT C-REACTIVE PROTEIN (CRP), S/P Routine 08/28/2024 7:32 AM CDT MAGNESIUM, S Routine 08/28/2024 7:32 AM CDT BASIC METABOLIC PANEL, S/P Routine 08/28/2024 7:32 AM CDT GLUCOSE POCT, B Routine 08/28/2024 7:09 AM CDT GLUCOSE POCT, B Routine 08/27/2024 11:13 PM CDT LACTATE, B/P Timed 08/27/2024 6:30 PM CDT GLUCOSE POCT, B Routine 08/27/2024 6:29 PM CDT ADULT OXYGEN THERAPY Routine 08/27/2024 5:51 PM CDT ADULT OXYGEN THERAPY Routine 08/27/2024 5:51 PM CDT ADULT OXYGEN THERAPY Routine 08/27/2024 5:51 PM CDT LACTATE FOR SEPSIS WITH REFLEX STAT 08/27/2024 2:59 PM CDT NT-PRO B-TYPE NATRIURETIC PEPTIDE (BNP), S STAT 08/27/2024 2:59 PM CDT PROTHROMBIN TIME (PT), P STAT 08/27/2024 2:59 PM CDT CBC WITH DIFFERENTIAL, B STAT 08/27/2024 2:59 PM CDT BASIC METABOLIC PANEL, S/P STAT 08/27/2024 2:59 PM CDT DX CHEST AP OR PA AND LATERAL 2 VIEWS RAD - Semiurgent (Fast; most ED patients; some inpatients) 08/27/2024 2:40 PM CDT ECG Routine 08/27/2024 2:18 PM CDT documented in this encounter Results * (ABNORMAL) Glucose, POCT (08/31/2024 11:50 AM CDT) Glucose, POCT, B 397(H) 70 - 140 mg/dL 08/31/2024 12:06 PM CDT PCLX Site Capillary 08/31/2024 12:06 PM CDT PCLX Last Intake 3-4 hours 08/31/2024 12:06 PM CDT PCLX Blood 08/31/2024 11:5 0 AM CDT 08/31/2024 12:07 PM CDT us Unknown Provider LAB POCT ORDERABLES-MANUAL Eliana l Result Performing Organization Address City/[facility] Co de Phone Number [facility] [address] [place] [address], [facility] PCLX [facility] POC [address] [place] [address] * (ABNORMAL) Glucose, POCT (08/31/2024 11:48 AM CDT) Glucose, POCT, B 431(H) 70 - 140 mg/dL 08/31/2024 12:06 PM CDT PCLX Site Capillary 08/31/2024 12:06 PM CDT PCLX Blood 08/31/2024 11:4 8 AM CDT 08/31/2024 12:07 PM CDT us Unknown Provider LAB POCT ORDERABLES-MANUAL Eliana l Result Performing Organization Address [facility] de Phone Number [facility] [address] [place] [address], [facility] PCLX [facility] POC [address] [place] [address] * (ABNORMAL) Basic Metabolic Panel (08/31/2024 8:35 AM CDT) Potassium, S 4.9 3.6 - [...] M.D., Ph.D. LAB BLOOD ADD-ON Final Result Performing Organization Address [facility] [place] [address], [facility] [place] [address] * (ABNORMAL) Prothrombin Time (PT) (08/31/2024 8:35 AM CDT) Prothrombin Time, P 24.7(H) 9.4 - 12.5 [...] ADD-ON Final Res ult Performing Organization Address City/[facility]/ZIP Co de Phone Number [facility] [address] [place] [address], [facility] DTL [facility] [address] [place] [address] * (ABNORMAL) CBC with Differential, Blood (08/31/2024 8:35 AM CDT) Hemoglobin 12.8(L) 13.2 - 16.6 g/dL 08/31/2024 [...] M.D., Ph.D. LAB BLOOD ADD-ON Final Result Performing Organization Address City/[facility]/ZIP Co de Phone Number [facility] [address] [place] [address], [place] DTL [facility] [address] [place] [address] DHPM [facility] [address] [place] [address] * Glucose, POCT (08/31/2024 6:58 AM CDT) Glucose, POCT, B 125 70 - 140 mg/dL 08/31/2024 7:02 AM CDT PCLX Site Capillary 08/31/2024 7:02 AM CDT PCLX Last Intake > 4 hours 08/31/2024 7:02 AM CDT PCLX Blood 08/31/2024 6:58 AM CDT 08/31/2024 7:02 AM CDT us Unknown Provider LAB POCT ORDERABLES-MANUAL Eliana l Result Performing Organization Address City/[facility]/ZIP Co de Phone Number [facility] [address] [place] [address], [facility] PCLX [facility] POC [address] [place] [address] * (ABNORMAL) Glucose, POCT (08/31/2024 3:31 AM CDT) Glucose, POCT, B 155(H) 70 - 140 mg/dL 08/31/2024 3:36 AM CDT PCLX Site Capillary 08/31/2024 3:36 AM CDT PCLX Last Intake > 4 hours 08/31/2024 3:36 AM CDT PCLX Blood 08/31/2024 3:31 AM CDT 08/31/2024 3:36 AM CDT us Unknown Provider LAB POCT ORDERABLES-MANUAL Eliana l Result Performing Organization Address City/[facility]/ZIP Co de Phone Number [facility] [address] [place] [address], [facility] PCLX [facility] POC [address] [place] [address] * (ABNORMAL) Glucose, POCT (08/30/2024 9:07 PM CDT) Glucose, POCT, B 309(H) 70 - 140 mg/dL 08/30/2024 9:27 PM CDT PCLX Blood 08/30/2024 9:07 PM CDT 08/30/2024 9:28 PM CDT us Unknown Provider LAB POCT ORDERABLES-MANUAL Eliana l Result Performing Organization Address City/[facility]/ZIP Co de Phone Number [facility] [address] [place] [address], [facility] PCLX [facility] POC [address] [place] [address] * (ABNORMAL) Glucose, POCT (08/30/2024 4:45 PM CDT) Glucose, POCT, B 203(H) 70 - 140 mg/dL 08/30/2024 4:49 PM CDT PCLX Site Capillary 08/30/2024 4:49 PM CDT PCLX Last Intake 3-4 hours 08/30/2024 4:49 PM CDT PCLX Blood 08/30/2024 4:45 PM CDT 08/30/2024 4:49 PM CDT us Unknown Provider LAB POCT ORDERABLES-MANUAL Eliana l Result Performing Organization Address City/[facility]/ZIP Co de Phone Number [facility] [address] [place] [address], [facility] PCLX [facility] POC [address] [place] [address] * (ABNORMAL) Glucose, POCT (08/30/2024 11:55 AM CDT) Glucose, POCT, B 250(H) 70 - 140 mg/dL 08/30/2024 12:12 PM CDT PCLX Site Capillary 08/30/2024 12:12 PM CDT PCLX Blood 08/30/2024 11:5 5 AM CDT 08/30/2024 12:12 PM CDT us Unknown Provider LAB POCT ORDERABLES-MANUAL Eliana l Result Performing Organization Address [facility] Co de Phone Number [facility] [address] [place] [address], [facility] PCLX [facility] [address] [place] [address] * (ABNORMAL) Prothrombin Time (PT) (08/30/2024 7:48 AM CDT) Pathologist [facility] Prothrombin Time, P 27.1(H) 9.4 - 12.5 sec 08/30/2024 9:15 AM CDT DTL INR 2.4 0.9 - 1.1 08/30/2024 9:15 AM CDT DTL Comment: ----ADDITIONAL INFORMATION---- Standard intensity warfarin therapeutic range: 2.0 to 3.0 ?? High intensity warfarin therapeutic range: 2.5 to 3.5 Blood (Blood, Venous) 08/30/2024 7:48 AM CDT 08/30/2024 8:48 AM CDT Mundo Camacho M.D. LAB BLOOD ADD-ON Final Res ult Performing Organization Address [facility] Co de Phone Number [facility] [address] [place] [address], [facility] DTL [facility] [address] [place] [address] * (ABNORMAL) CBC with Differential, Blood (08/30/2024 7:48 AM CDT) Pathologist [facility] Hemoglobin 13.2 13.2 - 16.6 g/dL 08/30/2024 9:02 AM CDT DTL Hematocrit 40.1 38.3 - 48.6 % 08/30/2024 9:02 AM CDT DTL Erythrocytes 4.55 4.35 - 5.65 x10(12)/L 08/30/2024 9:02 AM CDT DTL MCV 88.1 78.2 - 97.9 fL 08/30/2024 9:02 AM CDT DTL RBC Distrib Width 15.5(H) 11.8 - 14.5 % 08/30/2024 9:02 AM CDT DTL Platelet Count 118(L) 135 - 317 x10(9)/L 08/30/2024 9:02 AM CDT DTL Leukocytes 9.3 3.4 - 9.6 x10(9)/L 08/30/2024 9:02 AM CDT DTL Neutrophils 7.77(H) 1.56 - 6.45 x10(9)/L 08/30/2024 9:02 AM CDT DHPM Lymphocytes 0.77(L) 0.95 - 3.07 x10(9)/L 08/30/2024 9:02 AM CDT DTL Monocytes 0.69 0.26 - 0.81 x10(9)/L 08/30/2024 9:02 AM CDT DTL Eosinophils 0.08 0.03 - 0.48 x10(9)/L 08/30/2024 9:02 AM CDT DTL Basophils <0.03 0.01 - 0.08 x10(9)/L 08/30/2024 9:02 AM CDT DTL Blood (Blood, Venous) 08/30/2024 7:48 AM CDT 08/30/2024 8:52 AM CDT Mando Fang M.D., Ph.D. LAB BLOOD ADD-ON Final Result [facility] [address] [place] [address], [facility] DTL [facility] [address] [place] [address] [facility] [address] [place] [address] * (ABNORMAL) Magnesium (08/30/2024 7:48 AM CDT) [facility] Magnesium, S 2.5(H) 1.7 - 2.3 mg/dL 08/30/2024 9:17 AM CDT DTL Blood (Blood, Venous) 08/30/2024 7:48 AM CDT 08/30/2024 8:57 AM CDT Mundo Camacho M.D. LAB BLOOD ADD-ON Final Res ult Performing Organization Address City/[facility]/ZIP Co de Phone Number [facility] [address] [place] [address], [facility] DTL [facility] [address] [place] [address] * (ABNORMAL) Basic Metabolic Panel (08/30/2024 7:48 AM CDT) Pathologist [facility] Potassium, S 4.5 3.6 - 5.2 mmol/L 08/30/2024 9:17 AM CDT DTL Sodium, S 135 135 - 145 mmol/L 08/30/2024 9:17 AM CDT DTL Chloride, S 94(L) 98 - 107 mmol/L 08/30/2024 9:17 AM CDT DTL Bicarbonate, S 28 22 - 29 mmol/L 08/30/2024 9:17 AM CDT DTL Anion Gap 13 7 - 15 08/30/2024 9:17 AM CDT DTL BUN (Blood Urea Nitrogen), S 75(H) 8 - 24 mg/dL 08/30/2024 9:17 AM CDT DTL Creatinine 3.06(H) 0.74 - 1.35 mg/dL 08/30/2024 9:17 AM CDT DTL Estimated GFR (eGFR) 21(L) >=60 mL/min/BSA 08/30/2024 9:17 AM CDT DTL Comment: Estimated GFR calculated using the 2020 CKD_EPI creatinine equation. Calcium, Total, S 8.8 8.8 - 10.2 mg/dL 08/30/2024 9:17 AM CDT DTL Glucose, S 229(H) 70 - 140 mg/dL 08/30/2024 9:17 AM CDT DTL Blood (Blood, Venous) 08/30/2024 7:48 AM CDT 08/30/2024 8:57 AM CDT Mundo Camacho M.D. LAB BLOOD ADD-ON Final Res ult [facility] [address] [place] [address], [facility] DTL [facility] [address] [place] [address] * (ABNORMAL) Glucose, POCT (08/30/2024 6:34 AM CDT) Glucose, POCT, B 183(H) 70 - 140 mg/dL 08/30/2024 6:41 AM CDT PCLX Site Capillary 08/30/2024 6:41 AM CDT PCLX Last Intake > 4 hours 08/30/2024 6:41 AM CDT PCLX Blood 08/30/2024 6:34 AM CDT 08/30/2024 6:41 AM CDT us Unknown Provider LAB POCT ORDERABLES-MANUAL Eliana l Result Performing Organization Address City/[facility]/ZIP Co de Phone Number [facility] [address] [place] [address], [facility] PCLX [facility] POC [address] [place] [address] * (ABNORMAL) Glucose, POCT (08/29/2024 9:36 PM CDT) Glucose, POCT, B 264(H) 70 - 140 mg/dL 08/29/2024 9:43 PM CDT PCLX Site Capillary 08/29/2024 9:43 PM CDT PCLX Last Intake > 4 hours 08/29/2024 9:43 PM CDT PCLX Blood 08/29/2024 9:36 PM CDT 08/29/2024 9:44 PM CDT us Unknown Provider LAB POCT ORDERABLES-MANUAL Eliana l Result [facility] [address] [place] [address], [facility] PCLX [facility] POC [address] [place] [address] * Lactate for Sepsis with Reflex (08/29/2024 5:01 PM CDT) Lactate, P 1.7 0.5 - 2.2 mmol/L 08/29/2024 5:36 PM CDT STMA Blood (Blood, Venous) 08/29/2024 5:01 PM CDT 08/29/2024 5:20 PM CDT us Mando Fang M.D., Ph.D. LAB BLOOD NON ADD-ON F inal Result Performing Organization Address [facility] Co de Phone Number [facility] [address] [place] [address], [facility] STMA [facility] [address] [place] [address] * (ABNORMAL) Glucose, POCT (08/29/2024 4:37 PM CDT) [facility] Glucose, POCT, B 146(H) 70 - 140 mg/dL 08/29/2024 4:41 PM CDT PCLX Site Capillary 08/29/2024 4:41 PM CDT PCLX Blood 08/29/2024 4:37 PM CDT 08/29/2024 4:41 PM CDT us Unknown Provider LAB POCT ORDERABLES-MANUAL Eliana l Result Performing Organization Address [facility] de Phone Number [facility] [address] [place] [address], [facility] PCLX [facility] POC [address] [place] [address] * (TTE) 2D ECHO DOPPLER COLOR (08/29/2024 2:04 PM CDT) [facility] Ejection Fraction 68 MC CV EIMS LV [...] CABG x1, PVI, and DAHIANA amputation (19-SEP-2023, [place]). Echocardiogram performed per left ventricular function protocol [...] prosthesis, CABG x1, PVI,and DAHIANA amputation (19-SEP-2023, [place]). Echocardiogram performed per leftventricular function protocol + [...] ECHO PROCEDURES Final R esult * (ABNORMAL) Glucose, POCT (08/29/2024 11:26 AM CDT) [facility] Glucose, POCT, B 236(H) 70 - 140 mg/dL 08/29/2024 11:40 AM CDT PCLX Site Capillary 08/29/2024 11:40 AM CDT PCLX Blood 08/29/2024 11:2 6 AM CDT 08/29/2024 11:40 AM CDT Unknown Provider LAB POCT ORDERABLES-MANUAL Eliana l Result [facility] [address] [place], [place] [id number] [place] [address] PCLX [facility] POC [address] [place] [address] * (ABNORMAL) Prothrombin Time (PT) (08/29/2024 8:12 AM CDT) [facility] Prothrombin Time, P 29.9(H) 9.4 - 12.5 sec 08/29/2024 9:05 AM CDT DTL INR 2.7 0.9 - 1.1 08/29/2024 9:05 AM CDT DTL Comment: ----ADDITIONAL INFORMATION---- Standard intensity warfarin therapeutic range: 2.0 to 3.0 ?? High intensity warfarin therapeutic range: 2.5 to 3.5 Blood (Blood, Venous) 08/29/2024 8:12 AM CDT 08/29/2024 8:39 AM CDT Mundo Camacho M.D. LAB BLOOD ADD-ON Final Res ult Performing Organization Address [facility] Co de Phone Number [facility] [address] DTL [facility] [address] [place] [address] * (ABNORMAL) Magnesium (08/29/2024 8:12 AM CDT) Pathologist [facility] Magnesium, P 2.4(H) 1.7 - 2.3 mg/dL 08/29/2024 8:35 AM CDT STMA Blood (Blood, Venous) 08/29/2024 8:12 AM CDT 08/29/2024 8:19 AM CDT Mundo Camacho M.D. LAB BLOOD ADD-ON Final Res ult Performing Organization Address [facility] Co de Phone Number [facility] [address] [place], [place] [phone] [place] [address] STMA [facility] [address] [place] [address] * (ABNORMAL) Basic Metabolic Panel (08/29/2024 8:12 AM CDT) Potassium, S 4.5 3.6 - 5.2 mmol/L 08/29/2024 9:54 AM CDT DTL Sodium, S 137 135 - 145 mmol/L 08/29/2024 9:54 AM CDT DTL Chloride, S 95(L) 98 - 107 mmol/L 08/29/2024 9:54 AM CDT DTL Bicarbonate, S 27 22 - 29 mmol/L 08/29/2024 9:54 AM CDT DTL Anion Gap 15 7 - 15 08/29/2024 9:54 AM CDT DTL BUN (Blood Urea Nitrogen), S 73(H) 8 - 24 mg/dL 08/29/2024 9:54 AM CDT DTL Creatinine 2.88(H) 0.74 - 1.35 mg/dL 08/29/2024 9:54 AM CDT DTL Estimated GFR (eGFR) 22(L) >=60 mL/min/BSA 08/29/2024 9:54 AM CDT DTL Comment: Estimated GFR calculated using the 2020 CKD_EPI creatinine equation. Calcium, Total, S 9.5 8.8 - 10.2 mg/dL 08/29/2024 9:54 AM CDT DTL Glucose, S 236(H) 70 - 140 mg/dL 08/29/2024 9:54 AM CDT DTL Blood (Blood, Venous) 08/29/2024 8:12 AM CDT 08/29/2024 8:54 AM CDT Mundo Camacho M.D. LAB BLOOD ADD-ON Final Res ult [facility] [address] [place], [place] [id number] [place] [address] [facility] [address] [place] [address] * (ABNORMAL) CBC without Differential (08/29/2024 8:12 AM CDT) Hemoglobin 13.2 13.2 - 16.6 g/dL 08/29/2024 [...] 8:12 AM CDT 08/29/2024 8:40 AM CDT us Mundo Camacho M.D. LAB BLOOD ADD-ON Final Res ult Performing Organization Address City/[facility]/ZIP Co de Phone Number [facility] [address] [place] [address], [facility] DTL [facility] [address] [place] [address] * (ABNORMAL) Glucose, POCT (08/29/2024 6:51 AM CDT) Glucose, POCT, B 151(H) 70 - 140 mg/dL 08/29/2024 7:03 AM CDT PCLX Site Capillary 08/29/2024 7:03 AM CDT PCLX Last Intake 3-4 hours 08/29/2024 7:03 AM CDT PCLX Blood 08/29/2024 6:51 AM CDT 08/29/2024 7:03 AM CDT us Unknown Provider LAB POCT ORDERABLES-MANUAL Eliana l Result Performing Organization Address [facility] de Phone Number [facility] [address] [place] [address], [facility] PCLX [facility] [address] [place] [address] * (ABNORMAL) Glucose, POCT (08/28/2024 9:42 PM CDT) Glucose, POCT, B 290(H) 70 - 140 mg/dL 08/28/2024 10:13 PM CDT PCLX Blood 08/28/2024 9:42 PM CDT 08/28/2024 10:14 PM CDT us Unknown Provider LAB POCT ORDERABLES-MANUAL Eliana l Result Performing Organization Address City/[facility]/ZIP Co de Phone Number POC [facility] [address] [place] [address], [facility] PCLX [facility] [address] [place] [address] * (ABNORMAL) Glucose, POCT (08/28/2024 4:44 PM CDT) Glucose, POCT, B 203(H) 70 - 140 mg/dL 08/28/2024 4:51 PM CDT PCLX Site Capillary 08/28/2024 4:51 PM CDT PCLX Blood 08/28/2024 4:44 PM CDT 08/28/2024 4:51 PM CDT us Unknown Provider LAB POCT ORDERABLES-MANUAL Eliana l Result Performing Organization Address City/[facility]/ZIP Co de Phone Number [facility] [address] [place] [address], [facility] PCLX [facility] [address] [place] [address] * (ABNORMAL) Glucose, POCT (08/28/2024 11:48 AM CDT) Pathologist [facility] Glucose, POCT, B 147(H) 70 - 140 mg/dL 08/28/2024 11:53 AM CDT PCLX Blood 08/28/2024 11:4 8 AM CDT 08/28/2024 11:53 AM CDT us Unknown Provider LAB POCT ORDERABLES-MANUAL Eliana l Result [facility] [address] [place] [address], [facility] PCLX [facility] [address] [place] [address] * CRP (C-Reactive Protein) (08/28/2024 7:32 AM CDT) Pathologist [facility] C-Reactive Protein (CRP), S <3.0 <5.0 mg/L 08/28/2024 8:37 AM CDT DTL Blood (Blood, Venous) 08/28/2024 7:32 AM CDT 08/28/2024 8:20 AM CDT Mundo Camacho M.D. LAB BLOOD ADD-ON Final Res ult Performing Organization Address City/[facility] Co de Phone Number [facility] [address] [place], [place] [id number] [place] [address] * (ABNORMAL) Magnesium (08/28/2024 7:32 AM CDT) Magnesium, S 2.5(H) 1.7 - 2.3 mg/dL 08/28/2024 8:37 AM CDT DTL Blood (Blood, Venous) 08/28/2024 7:32 AM CDT 08/28/2024 8:20 AM CDT Mundo Camacho M.D. LAB BLOOD ADD-ON Final Res ult Performing Organization Address [facility] Co de Phone Number [facility] [address] [place], [place] [id number] [place] [address] [address] [place] [address] * (ABNORMAL) Basic Metabolic Panel (08/28/2024 7:32 AM CDT) Potassium, S 4.2 3.6 - 5.2 mmol/L 08/28/2024 8:37 AM CDT DTL Sodium, S 137 135 - 145 mmol/L 08/28/2024 8:37 AM CDT DTL Chloride, S 98 98 - 107 mmol/L 08/28/2024 8:37 AM CDT DTL Bicarbonate, S 29 22 - 29 mmol/L 08/28/2024 8:37 AM CDT DTL Anion Gap 10 7 - 15 08/28/2024 8:37 AM CDT DTL BUN (Blood Urea Nitrogen), S 73(H) 8 - 24 mg/dL 08/28/2024 8:37 AM CDT DTL Creatinine 2.82(H) 0.74 - 1.35 mg/dL 08/28/2024 8:37 AM CDT DTL Estimated GFR (eGFR) 23(L) >=60 mL/min/BSA 08/28/2024 8:37 AM CDT DTL Comment: Estimated GFR calculated using the 2020 CKD_EPI creatinine equation. Calcium, Total, S 9.1 8.8 - 10.2 mg/dL 08/28/2024 8:37 AM CDT DTL Glucose, S 107 70 - 140 mg/dL 08/28/2024 8:37 AM CDT DTL Blood (Blood, Venous) 08/28/2024 7:32 AM CDT 08/28/2024 8:20 AM CDT us Mundo Camacho M.D. LAB BLOOD ADD-ON Final Res ult [facility] [address] [place] [address], [facility] [address] [address] * (ABNORMAL) CBC without Differential (08/28/2024 7:32 AM CDT) Pathologist [facility] Hemoglobin 12.8(L) 13.2 - 16.6 g/dL 08/28/2024 8:30 AM CDT DTL Hematocrit 39.6 38.3 - 48.6 % 08/28/2024 8:30 AM CDT DTL Erythrocytes 4.43 4.35 - 5.65 x10(12)/L 08/28/2024 8:30 AM CDT DTL MCV 89.4 78.2 - 97.9 fL 08/28/2024 8:30 AM CDT DTL RBC Distrib Width 15.4(H) 11.8 - 14.5 % 08/28/2024 8:30 AM CDT DTL Platelet Count 124(L) 135 - 317 x10(9)/L 08/28/2024 8:30 AM CDT DTL Leukocytes 10.1(H) 3.4 - 9.6 x10(9)/L 08/28/2024 8:30 AM CDT DTL Blood (Blood, Venous) 08/28/2024 7:32 AM CDT 08/28/2024 8:09 AM CDT Mundo Camacho M.D. LAB BLOOD ADD-ON Final Res ult Performing Organization Address [facility] Co de Phone Number [facility] [address] [place] [address], [facility] [address] [place] [address] * (ABNORMAL) Prothrombin Time (PT) (08/28/2024 7:32 AM CDT) Prothrombin Time, P 33.4(H) 9.4 - 12.5 sec 08/28/2024 8:29 AM CDT DTL INR 3.0 0.9 - 1.1 08/28/2024 8:29 AM CDT DTL Comment: ----ADDITIONAL INFORMATION---- Standard intensity warfarin therapeutic range: 2.0 to 3.0 ?? High intensity warfarin therapeutic range: 2.5 to 3.5 Blood (Blood, Venous) 08/28/2024 7:32 AM CDT 08/28/2024 8:07 AM CDT Mundo Camacho M.D. LAB BLOOD ADD-ON Final Res ult Performing Organization Address [facility] Co de Phone Number [facility] [address] [place] [address], [facility] [address] [place] [address] * Glucose, POCT (08/28/2024 7:09 AM CDT) Glucose, POCT, B 115 70 - 140 mg/dL 08/28/2024 7:11 AM CDT PCLX Site Capillary 08/28/2024 7:11 AM CDT PCLX Last Intake > 4 hours 08/28/2024 7:11 AM CDT PCLX Blood 08/28/2024 7:09 AM CDT 08/28/2024 7:12 AM CDT Unknown Provider LAB POCT ORDERABLES-MANUAL Eliana l Result Performing Organization Address City/[facility]/ZIP Co de Phone Number POC [facility] [address] [place] [address], [facility] PCLX [facility] [address] [place] [address] * (ABNORMAL) Glucose, POCT (08/27/2024 11:13 PM CDT) Glucose, POCT, B 343(H) 70 - 140 mg/dL 08/27/2024 11:16 PM CDT PCLX Site Capillary 08/27/2024 11:16 PM CDT PCLX Last Intake > 4 hours 08/27/2024 11:16 PM CDT PCLX Blood 08/27/2024 11:1 3 PM CDT 08/27/2024 11:16 PM CDT us Unknown Provider LAB POCT ORDERABLES-MANUAL Eliana l Result Performing Organization Address [facility] Co de Phone Number [facility] [address] [place] [address], [facility] PCLX [facility] [address] [place] [address] * Lactate (08/27/2024 6:30 PM CDT) Lactate, P 1.2 0.5 - 2.2 mmol/L 08/27/2024 6:52 PM CDT STMA Blood 08/27/2024 6:30 PM CDT 08/27/2024 6:36 PM CDT us Obdulio Salinas P.A.-C. LAB BLOOD NON ADD-ON Final Result Performing Organization Address City/[facility]/ZIP Co de Phone Number [facility] [address] [place] [address], [facility] STMA [facility] [address] [place] [address] * (ABNORMAL) Glucose, POCT (08/27/2024 6:29 PM CDT) Glucose, POCT, B 201(H) 70 - 140 mg/dL 08/27/2024 6:31 PM CDT PCLX Site Capillary 08/27/2024 6:31 PM CDT PCLX Last Intake > 4 hours 08/27/2024 6:31 PM CDT PCLX Blood 08/27/2024 6:29 PM CDT 08/27/2024 6:31 PM CDT us Unknown Provider LAB POCT ORDERABLES-MANUAL Eliana l Result Performing Organization Address City/[facility]/ZIP Co de Phone Number [facility] [address] [place] [address], [facility] PCLX [facility] [address] [place] [address] * (ABNORMAL) NT-Pro B-Type Natriuretic Peptide (BNP) (08/27/2024 2:59 PM CDT) NT-Pro BNP 5662(H) <=540 pg/mL 08/27/2024 3:35 [...] P.A.-C. LAB BLOOD ADD-ON Final Res ult [facility] [address] [place] [address], [facility] STMA [facility] [address] [place] [address] * (ABNORMAL) Prothrombin Time (PT) (08/27/2024 2:59 PM CDT) Prothrombin Time, P 34.6(H) 9.4 - 12.5 sec 08/27/2024 3:15 PM CDT STMA INR 3.1 0.9 - 1.1 08/27/2024 3:15 PM CDT STMA Comment: ----ADDITIONAL INFORMATION---- Standard intensity warfarin therapeutic range: 2.0 to 3.0 ?? High intensity warfarin therapeutic range: 2.5 to 3.5 Blood (Blood, Venous) 08/27/2024 2:59 PM CDT 08/27/2024 3:05 PM CDT Obdulio Salinas P.A.-C. LAB BLOOD ADD-ON Final Res ult Performing Organization Address [facility]/ZIP Co de Phone Number [facility] [address] [place], [place] [id number] [place] [address] [address] [place] [address] * (ABNORMAL) Lactate for Sepsis with Reflex (08/27/2024 2:59 PM CDT) Lactate, P 2.6(H) 0.5 - 2.2 mmol/L 08/27/2024 3:24 PM CDT STMA Blood (Blood, Venous) 08/27/2024 2:59 PM CDT 08/27/2024 3:05 PM CDT Obdulio Salinas P.A.-C. LAB BLOOD NON ADD-ON Final Result Performing Organization Address [facility]/ZIP Co de Phone Number [facility] [address] [place], [place] [phone] [place] [address] [address] [place] [address] * (ABNORMAL) Basic Metabolic Panel (08/27/2024 2:59 PM CDT) Potassium, P 4.7 3.6 - 5.2 mmol/L 08/27/2024 3:25 PM CDT STMA Sodium, P 137 135 - 145 mmol/L 08/27/2024 3:25 PM CDT STMA Chloride, P 101 98 - 107 mmol/L 08/27/2024 3:25 PM CDT STMA Bicarbonate, P 25 22 - 29 mmol/L 08/27/2024 3:25 PM CDT STMA Anion Gap, P 11 7 - 15 08/27/2024 3:25 PM CDT STMA BUN (Blood Urea Nitrogen), P 71(H) 8 - 24 mg/dL 08/27/2024 3:25 PM CDT STMA Creatinine 2.67(H) 0.74 - 1.35 mg/dL 08/27/2024 3:25 PM CDT STMA Estimated GFR (eGFR) 25(L) >=60 mL/min/BSA 08/27/2024 3:25 PM CDT STMA Comment: Estimated GFR calculated using the 2020 CKD_EPI creatinine equation. Calcium, Total, P 8.9 8.8 - 10.2 mg/dL 08/27/2024 3:25 PM CDT STMA Glucose, P 202(H) 70 - 140 mg/dL 08/27/2024 3:25 PM CDT STMA Blood (Blood, Venous) 08/27/2024 2:59 PM CDT 08/27/2024 3:05 PM CDT us Obdulio Salinas P.A.-C. LAB BLOOD ADD-ON Final Res ult [address] [address], [address] [address] * (ABNORMAL) CBC with Differential, Blood (08/27/2024 2:59 PM CDT) Hemoglobin 12.6(L) 13.2 - 16.6 g/dL 08/27/2024 3:10 PM CDT STMA Hematocrit 39.0 38.3 - 48.6 % 08/27/2024 3:10 PM CDT STMA Erythrocytes 4.30(L) 4.35 - 5.65 x10(12)/L 08/27/2024 3:10 PM CDT STMA MCV 90.7 78.2 - 97.9 fL 08/27/2024 3:10 PM CDT STMA RBC Distrib Width 15.5(H) 11.8 - 14.5 % 08/27/2024 3:10 PM CDT STMA Platelet Count 110(L) 135 - 317 x10(9)/L 08/27/2024 3:10 PM CDT STMA Leukocytes 8.7 3.4 - 9.6 x10(9)/L 08/27/2024 3:10 PM CDT STMA Neutrophils 7.51(H) 1.56 - 6.45 x10(9)/L 08/27/2024 3:10 PM CDT DHPM Lymphocytes 0.51(L) 0.95 - 3.07 x10(9)/L 08/27/2024 3:10 PM CDT STMA Monocytes 0.63 0.26 - 0.81 x10(9)/L 08/27/2024 3:10 PM CDT STMA Eosinophils <0.03 0.03 - 0.48 x10(9)/L 08/27/2024 3:10 PM CDT STMA Basophils <0.03 0.01 - 0.08 x10(9)/L 08/27/2024 3:10 PM CDT STMA Blood (Blood, Venous) 08/27/2024 2:59 PM CDT 08/27/2024 3:05 PM CDT Obdulio Salinas P.A.-C. LAB BLOOD ADD-ON Final Res ult [facility] [address] [place] [address], [facility] STMA [facility] [address] [place] [address] DHPM [facility] [address] [place] [address] * DX Chest AP or PA and Lateral 2 Views (08/27/2024 2:40 PM CDT) Anatomical Region Laterality Modality Chest, [...] ECG 12 Lead (08/27/2024 2:18 PM CDT) Ventricular Rate ECG/Min 60 BPM MUSE MT Interval 134 ms MUSE QRSD Interval 76 ms MUSE QT Interval 426 ms MUSE QTC Interval 426 ms MUSE P Callery 28 degrees MUSE R [place]ery 70 degrees MUSE T Wave [place] 98 degrees MUSE 08/27/2024 2:18 PM CDT [...] change was found Reviewed by MARIELA Crews us Obdulio Salinas P.A.-C. ECG ORDERABLES Edited Res ult - Final MUSE NA documented in this encounter Visit Diagnoses Diagnosis Edema Leg- Primary Edema Leg Decline Functional Status [R53.81] documented in this encounter Admitting Diagnoses Diagnosis Edema Leg documented in this encounter Administered Medications Inactive Administered Medications - up to 3 most recent administrations Medication Order MAR Action Action Date Dose Rate Site acetaminophen tablet 1,000 mg (TylenoL) 1,000 mg, oral, Every 6 hours PRN, mild pain or score 1-3 of 10, moderate pain or score 4-6 of 10, severe pain or score 7-10 of 10, headaches, fever, Starting on Sun08/27/24 at 1751 Given 08/31/2024 9:12 AM CDT 1,000 mg Given 08/31/2024 12:40 AM CDT 1,000 mg Given 08/30/2024 9:39 AM CDT 1,000 mg aspirin chewable tablet 81 mg 81 mg, oral, Daily, First dose on Sun08/28/24 at 0900 Given 08/31/2024 9:15 AM CDT 81 mg Given 08/30/2024 9:24 AM CDT 81 mg Given 08/29/2024 9:02 AM CDT 81 mg atorvastatin tablet 80 mg (Lipitor) 80 mg, oral, Daily at bedtime, First dose on Sun08/27/24 at 2100 Given 08/30/2024 8:25 PM CDT 80 mg Given 08/29/2024 8:20 PM CDT 80 mg Given 08/28/2024 8:21 PM CDT 80 mg cefadroxil capsule 500 mg (Duricef) 500 mg, oral, Daily, First dose on Sun08/31/24 at 0900, Indications: Skin and soft tissue infectionIndications:Skin and soft tissue infection Given 08/31/2024 9:15 AM CDT 500 mg ceFAZolin injection 2 g (Ancef) 2 g, intravenous, Every 12 hours, First dose (after last modification) on Sun08/29/24 at 1600, For 10 days, For immediate IV push administration, reconstitute vial per IVAG or package insert instructions. See IVAG for administration guidelines., Drug Monitoring Program: Pharmacist to adjust medication dosing based on indication and drug clearance factors., Indications: Skin and soft tissue infectionIndications:Skin and soft tissue infection Given 08/30/2024 3:12 AM CDT 2 g Given 08/29/2024 5:17 PM CDT 2 g cholecalciferol (vitamin D3) tablet 25 mcg 25 mcg, oral, Daily, First dose on Sun08/28/24 at 0900, cholecalciferol (vitamin D3) orderable was interchanged for cholecalciferol (vitamin D3) tablet/capsule Given 08/31/2024 9:12 AM C DT 25 mcg Given 08/30/2024 9:24 AM CDT 25 mcg Given 08/29/2024 9:02 AM CDT 25 mcg colchicine tablet 0.6 mg (Colcrys) 0.6 mg, oral, Daily, First dose on Sun08/28/24 at 0900, For 4 days Given 08/31/2024 9:12 AM CDT 0.6 mg Given 08/30/2024 9:25 AM CDT 0.6 mg Given 08/29/2024 9:02 AM CDT 0.6 mg cyanocobalamin tablet 2,000 mcg (Vitamin B-12) 2,000 mcg, oral, Daily, First dose on Sun08/28/24 at 0900 Given 08/31/2024 9:15 AM CDT 2,000 mcg Given 08/30/2024 9:24 AM CDT 2,000 mcg Given 08/29/2024 9:02 AM CDT 2,000 mcg finasteride tablet 5 mg (Proscar) 5 mg, oral, Daily, First dose on Sun08/28/24 at 0900, See tube feeding guidelines for tube feeding administration instructions. Given 08/31/2024 9:15 AM CDT 5 mg Given 08/30/2024 9:25 AM CDT 5 mg Given 08/29/2024 9:02 AM CDT 5 mg furosemide injection 100 mg (Lasix) 100 mg, intravenous, Once, On Sun08/29/24 at 0845, For 1 dose, Adults: Doses less than 120 mg: IV push over 20 mg/minute. Doses 120 mg or greater: IVPB at 4 mg/minute. Peds/Neonates: Doses less than 120 mg over 0.5 mg/kg/minute. Doses 120 mg or greater: IVPB at 4 mg/minute. Given 08/29/2024 9:02 AM CDT 100 mg furosemide injection 100 mg (Lasix) 100 mg, intravenous, Once, On Sun08/29/24 at 1515, For 1 dose, Adults: Doses less than 120 mg: IV push over 20 mg/minute. Doses 120 mg or greater: IVPB at 4 mg/minute. Peds/Neonates: Doses less than 120 mg over 0.5 mg/kg/minute. Doses 120 mg or greater: IVPB at 4 mg/minute. Given 08/29/2024 5:17 PM CDT 100 mg furosemide injection 20 mg (Lasix) 20 mg, intravenous, Once, On Sun08/28/24 at 0400, For 1 dose, Adults: Doses less than 120 mg: IV push over 20 mg/minute. Doses 120 mg or greater: IVPB at 4 mg/minute. Peds/Neonates: Doses less than 120 mg over 0.5 mg/kg/minute. Doses 120 mg or greater: IVPB at 4 mg/minute. Given 08/28/2024 6:00 AM CDT 20 mg furosemide injection 40 mg (Lasix) 40 mg, intravenous, Once, On Sun08/27/24 at 1530, For 1 dose, Adults: Doses less than 120 mg: IV push over 20 mg/minute. Doses 120 mg or greater: IVPB at 4 mg/minute. Peds/Neonates: Doses less than 120 mg over 0.5 mg/kg/minute. Doses 120 mg or greater: IVPB at 4 mg/minute. Given 08/27/2024 3:52 PM CDT 40 mg furosemide injection 40 mg (Lasix) 40 mg, intravenous, Once, On Sun08/27/24 at 1915, For 1 dose, Adults: Doses less than 120 mg: IV push over 20 mg/minute. Doses 120 mg or greater: IVPB at 4 mg/minute. Peds/Neonates: Doses less than 120 mg over 0.5 mg/kg/minute. Doses 120 mg or greater: IVPB at 4 mg/minute. Given 08/27/2024 9:22 PM CDT 40 mg furosemide injection 40 mg (Lasix) 40 mg, intravenous, 2 times daily, First dose (after last reorder) on Sun08/28/24 at 1030, Adults: Doses less than 120 mg: IV push over 20 mg/minute. Doses 120 mg or greater: IVPB at 4 mg/minute. Peds/Neonates: Doses less than 120 mg over 0.5 mg/kg/minute. Doses 120 mg or greater: IVPB at 4 mg/minute. Given 08/28/2024 11:45 AM CDT 40 mg furosemide injection 80 mg (Lasix) 80 mg, intravenous, Once, On Carissa 08/28/24 at 1515, For 1 dose, Adults: Doses less than 120 mg: IV push over 20 mg/minute. Doses 120 mg or greater: IVPB at 4 mg/minute. Peds/Neonates: Doses less than 120 mg over 0.5 mg/kg/minute. Doses 120 mg or greater: IVPB at 4 mg/minute. Given 08/28/2024 3:19 PM CDT 80 mg furosemide injection 80 mg (Lasix) 80 mg, intravenous, Once, On Sun08/29/24 at 0015, For 1 dose, Adults: Doses less than 120 mg: IV push over 20 mg/minute. Doses 120 mg or greater: IVPB at 4 mg/minute. Peds/Neonates: Doses less than 120 mg over 0.5 mg/kg/minute. Doses 120 mg or greater: IVPB at 4 mg/minute. Given 08/29/2024 1:18 AM CDT 80 mg HYDROmorphone (PF) injection 0.2 mg (Dilaudid) 0.2 mg, intravenous, Once, On Carissa 08/28/24 at 0400, For 1 dose Given 08/28/2024 3:52 AM CDT 0.2 mg insulin aspart U-100 injection 0-13 Units (NovoLOG FlexPen) 0-13 Units, subcutaneous, 3 times daily, First dose (after last modification) on Sun08/27/24 at 1930, Insulin Scale: Moderate Correction Scale, 140 - 179: 2 units, 180 - 219: 4 units, 220 - 259: 6 units, 260 - 299: 8 units, 300 - 339: 10 units, 340 - 379: 12 units, 380 - 399: 13 units, Greater than 399: Call service writing Insulin orders Given 08/31/2024 11:53 AM CDT 13 Units Right Upper Arm (Back) Given 08/30/2024 4:46 PM CDT 4 Units Le ft Lower Abdomen Given 08/30/2024 12:48 PM CDT 6 Units R ight Lower Abdomen insulin aspart U-100 injection 5 Units (NovoLOG FlexPen) 5 Units, subcutaneous, Once, On 08/30/24 at 2200, For 1 dose Given 08/30/2024 10:16 PM CDT 5 Units Left Lower Abdomen insulin NPH injection 15 Units 15 Units, subcutaneous, Every morning, First dose on Carissa 08/28/24 at 0900 Given 08/31/2024 9:15 AM CDT 15 Units Right Upper Arm (Rafy k) Given 08/30/2024 9:25 AM CDT 15 Units Le ft Upper Arm (Back) Given 08/29/2024 9:03 AM CDT 15 Units Ri ght Upper Arm (Back) insulin NPH injection 5 Units 5 Units, subcutaneous, Daily at bedtime, First dose on Sun08/27/24 at 2100 Given 08/30/2024 8:24 PM CDT 5 Units Left Upper Abdomen Given 08/29/2024 9:36 PM CDT 5 Units Le ft Lower Abdomen Given 08/28/2024 9:38 PM CDT 5 Units Le ft Upper Arm (Back) metoprolol succinate 24 hr tablet 50 mg (Toprol XL) 50 mg, oral, Daily, First dose on Carissa 08/28/24 at 0900, Do NOT crush or chew. Tablet may be split on score if needed. Given 08/31/2024 9:15 AM CDT 50 mg Given 08/30/2024 9:24 AM CDT 50 mg Given 08/29/2024 9:02 AM CDT 50 mg naloxone injection 0.4 mg (Narcan) 0.4 mg, intravenous, As needed, reversal, respiratory depression, Starting on Carissa 08/28/[address] tablet 40 mg (Protonix) 40 mg, oral, Daily before morning meal, First dose on Carissa 08/28/24 at 0700, For 3 days, Swallow whole. Do NOT crush, chew, or split tablet. Given 08/30/2024 6:10 AM CDT 40 mg Given 08/29/2024 6:10 AM CDT 40 mg Given 08/28/2024 6:00 AM CDT 40 mg predniSONE tablet 15 mg (Deltasone) 15 mg, oral, Daily, First dose on Sun09/12/24 at 0900, For 14 days predniSONE tablet 17.5 mg (Deltasone) 17.5 mg, oral, Daily, First dose on Sun08/29/24 at 1200, For 14 days Given 08/31/2024 9:14 AM CDT 17.5 mg Given 08/30/2024 9:22 AM CDT 17.5 mg Given 08/29/2024 12:35 PM CDT 17.5 mg predniSONE tablet 20 mg (Deltasone) 20 mg, oral, Daily, First dose on Sun08/28/24 at 1200, For 1 day Given 08/28/2024 11:45 AM CDT 20 mg rOPINIRole tablet 0.5 mg (Requip) 0.5 mg, oral, 3 times daily, First dose on Sun08/27/24 at 2100 Given 08/31/2024 11:53 AM CDT 0.5 mg Given 08/31/2024 6:22 AM CDT 0.5 mg Given 08/30/2024 8:24 PM CDT 0.5 mg sodium chloride 0.9 % injection 10 mL 10 mL, intravenous, As needed, line care, Starting on Sun08/27/24 at 1751, Peripheral Intravenous Catheter and Rapid Infusion Catheter, prior to blood sampling, post blood transfusion or post blood sampling sodium chloride 0.9 % injection 3 mL 3 mL, intravenous, As needed, line care, Starting on Sun08/27/24 at 1751, Prior to and following infusion and between multiple consecutive infusions: sodium chloride 0.9 % injection sodium chloride 0.9 % injection 3 mL 3 mL, intravenous, Every 12 hours scheduled, First dose on Sun08/27/24 at 2100, Peripheral Intravenous Catheter and Rapid Infusion Catheter, when no infusion to maintain patency Given 08/31/2024 9: 23 AM CDT 3 mL Given 08/30/2024 8:26 PM CDT 3 mL Given 08/30/2024 9:34 AM CDT 3 mL sulfamethoxazole-trimethoprim 400-80 mg per tablet 1 tablet (Bactrim) 1 tablet, oral, Daily, First dose on Sun08/28/24 at 0900, For 3 days, Drug Monitoring Program: Pharmacist to adjust medication dosing based on indication and drug clearance factors., Indications: Prophylaxis, medicalIndications:Prophylaxis, medical Given 08/29/2024 9:02 AM CDT 1 ta blet Given 08/28/2024 9:03 AM CDT 1 tablet tamsulosin 24 hr capsule 0.4 mg (Flomax) 0.4 mg, oral, Daily at bedtime, First dose on Sun08/27/24 at 2100, Swallow whole. Do NOT crush, chew or open capsule. Given 08/30/2024 8:24 PM CDT 0.4 mg Given 08/29/2024 8:20 PM CDT 0.4 mg Given 08/28/2024 8:22 PM CDT 0.4 mg torsemide tablet 100 mg (Demadex) 100 mg, oral, 2 times daily, First dose on 08/30/24 at 1115, For 2 doses Given 08/30/2024 8:25 PM CDT 100 mg Given 08/30/2024 12:09 PM CDT 100 mg torsemide tablet 60 mg (Demadex) 60 mg, oral, 2 times daily, First dose on Sun08/31/24 at 0930 Given 08/31/2024 9:29 AM CDT 60 mg warfarin tablet 1 mg (Jantoven) 1 mg, oral, Once, On Sun08/27/24 at 1945, For 1 dose, HAZARDOUS - Handle with care. Swallow whole. Do NOT chew or split tablet. May crush using the RxCrush system. Given 08/27/2024 9:25 PM CDT 1 mg warfarin tablet 1.5 mg (Jantoven) 1.5 mg, oral, Once, On Sun08/28/24 at 1700, For 1 dose, HAZARDOUS - Handle with care. Swallow whole. Do NOT chew or split tablet. May crush using the RxCrush system. Given 08/28/2024 4:59 PM CDT 1.5 mg warfarin tablet 2 mg (Jantoven) 2 mg, oral, Once, On Sun08/29/24 at 1700, For 1 dose, HAZARDOUS - Handle with care. Swallow whole. Do NOT chew or split tablet. May crush using the RxCrush system. Given 08/29/2024 5:17 PM CDT 2 mg warfarin tablet 2 mg (Jantoven) 2 mg, oral, Once, On 08/30/24 at 1700, For 1 dose, HAZARDOUS - Handle with care. Swallow whole. Do NOT chew or split tablet. May crush using the [employer] system. Given 08/30/2024 5:01 PM CDT 2 mg documented in this encounter Active and Recently Administered Medications Times are shown in CDT. Scheduled Medication Order 08/29/2024 08/30/2024 08/31/2024 aspirin chewable tablet 81 mg 81 mg, oral, Daily, First dose on Carissa 08/28/24 at 0900 0902 (Given - Provider: Nola Mcintosh R.N.) 0924 (Given - Provider: Kwesi Thayer R.N.) 0915 (Given - Provider: Kwesi Thayer R.N.) atorvastatin tablet 80 mg (Lipitor) 80 mg, oral, Daily at bedtime, First dose on Sun08/27/24 at 2100 2019 (Given - Provider: Adriana Lou R.N.) 2024 (Given - Provider: Sharath Krishna R.N.) cefadroxil capsule 500 mg (Duricef) 500 mg, oral, Daily, First dose on Sun08/31/24 at 0900, Indications: Skin and soft tissue infection 914 (Given - Provider: Kwesi Thayer R.N.) ceFAZolin injection 2 g (Ancef) (CANCELED) 2 g, intravenous, Every 12 hours, First dose (after last modification) on Sun08/29/24 at 1600, For 10 days, For immediate IV push administration, reconstitute vial per IVAG or package insert instructions. See IVAG for administration guidelines., Drug Monitoring Program: Pharmacist to adjust medication dosing based on indication and drug clearance factors., Indications: Skin and soft tissue infection 171 (Given - Provider: Chelsea Veras R.N. - Comment: waiting for ) 2 (Given - Provider: Adriana Lou R.N.) cholecalciferol (vitamin D3) tablet 25 mcg 25 mcg, oral, Daily, First dose on Carissa 08/28/24 at 0900, cholecalciferol (vitamin D3) orderable was interchanged for cholecalciferol (vitamin D3) tablet/capsule 901 (Given - Provider: Nola Mcintosh R.N.) 0924 (Given - Provider: Kwesi Thayer R.N.) 09 (Given - Provider: Kwesi Thayer R.N.) colchicine tablet 0.6 mg (Colcrys) (COMPLETED) 0.6 mg, oral, Daily, First dose on Sun08/28/24 at 0900, For 4 days 901 (Given - Provider: Nola Mcintosh R.N.) 924 (Given - Provider: Kwesi Thayer R.N.) 911 (Given - Provider: Kwesi Thayer R.N.) cyanocobalamin tablet 2,000 mcg (Vitamin B-12) 2,000 mcg, oral, Daily, First dose on Sun08/28/24 at 0900 901 (Given - Provider: Nola Mcintosh R.N.) 923 (Given - Provider: Kwesi Thayer R.N.) 09 (Given - Provider: wKesi Thayer R.N.) finasteride tablet 5 mg (Proscar) 5 mg, oral, Daily, First dose on Sun08/28/24 at 0900, See tube feeding guidelines for tube feeding administration instructions. 901 (Given - Provider: Nola Mcintosh R.N.) 924 (Given - Provider: Kwesi Thayer R.N.) 914 (Given - Provider: Kwesi Thayer R.N.) furosemide injection 100 mg (Lasix) (COMPLETED) 100 mg, intravenous, Once, On Sun08/29/24 at 0845, For 1 dose, Adults: Doses less than 120 mg: IV push over 20 mg/minute. Doses 120 mg or greater: IVPB at 4 mg/minute. Peds/Neonates: Doses less than 120 mg over 0.5 mg/kg/minute. Doses 120 mg or greater: IVPB at 4 mg/minute. 901 (Given - Provider: Nola Mcintosh R.N.) furosemide injection 100 mg (Lasix) (COMPLETED) 100 mg, intravenous, Once, On Sun08/29/24 at 1515, For 1 dose, Adults: Doses less than 120 mg: IV push over 20 mg/minute. Doses 120 mg or greater: IVPB at 4 mg/minute. Peds/Neonates: Doses less than 120 mg over 0.5 mg/kg/minute. Doses 120 mg or greater: IVPB at 4 mg/minute. 1717 (Given - Provider: Chelsea Veras R.N.) furosemide injection 80 mg (Lasix) (COMPLETED) 80 mg, intravenous, Once, On Sun08/29/24 at 0015, For 1 dose, Adults: Doses less than 120 mg: IV push over 20 mg/minute. Doses 120 mg or greater: IVPB at 4 mg/minute. Peds/Neonates: Doses less than 120 mg over 0.5 mg/kg/minute. Doses 120 mg or greater: IVPB at 4 mg/minute. 0118 (Given - Provider: Marva Heck R.N.) insulin aspart U-100 injection 0-13 Units (NovoLOG FlexPen) 0-13 Units, subcutaneous, 3 times daily, First dose (after last modification) on Sun08/27/24 at 1930, Insulin Scale: Moderate Correction Scale, 140 - 179: 2 units, 180 - 219: 4 units, 220 - 259: 6 units, 260 - 299: 8 units, 300 - 339: 10 units, 340 - 379: 12 units, 380 - 399: 13 units, Greater than 399: Call service writing Insulin orders 0719 (Given - Provider: Nola Mcintosh R.N.)1236 (Given - Provider: Nola Mcintosh R.N.)1718 (Given - Provider: Chelsea Veras R.N.) 0637 (Given - Provider: Adriana Lou R.N.)1248 (Given - Provider: Chelsea Veras R.N.)1646 (Given - Provider: Mary Enriquez RJarrettNJarrett) 0659 (Not Given - Provider: Adriana Lou R.N. - Reason: Order parameters not met)1153 (Given - Provider: Chelsea Veras R.N. - Comment: 397) insulin aspart U-100 injection 5 Units (NovoLOG FlexPen) (COMPLETED) 5 Units, subcutaneous, Once, On Sun08/30/24 at 2200, For 1 dose 2216 (Given - Provider: Sharath Krishna RJarrettNJarrett) insulin NPH injection 15 Units 15 Units, subcutaneous, Every morning, First dose on Sun08/28/24 at 0900 0903 (Given - Provider: Nola Mcintosh R.N.) 0925 (Given - Provider: Kwesi Thayer R.N.) 0915 (Given - Provider: Kwesi Thayer R.N.) insulin NPH injection 5 Units 5 Units, subcutaneous, Daily at bedtime, First dose on Sun08/27/24 at 2100 2136 (Given - Provider: Adriana Lou R.N.) 2023 (Given - Provider: Sharath Krishna R.N.) metoprolol succinate 24 hr tablet 50 mg (Toprol XL) 50 mg, oral, Daily, First dose on Sun08/28/24 at 0900, Do NOT crush or chew. Tablet may be split on score if needed. 09 (Given - Provider: Nola Mcintosh R.N.) 24 (Given - Provider: Kwesi Thayer R.N.) 0915 (Given - Provider: Kwesi Thayer R.N.) pantoprazole DR tablet 40 mg (Protonix) (COMPLETED) 40 mg, oral, Daily before morning meal, First dose on Sun08/28/24 at 0700, For 3 days, Swallow whole. Do NOT crush, chew, or split tablet. 0610 (Given - Provider: Marva Heck R.N.) 0610 (Given - Provider: Adriana Lou R.N.) predniSONE tablet 15 mg (Deltasone)(Linked Group 1) 15 mg, oral, Daily, First dose on Sun09/12/24 at 0900, For 14 days predniSONE tablet 17.5 mg (Deltasone)(Linked Group 1) 17.5 mg, oral, Daily, First dose on Sun08/29/24 at 1200, For 14 days 1235 (Given - Provider: Nola Mcintosh R.N.) 0922 (Given - Provider: Kwesi Thayer R.N.) 0914 (Given - Provider: Kwesi Thayer R.N.) rOPINIRole tablet 0.5 mg (Requip) 0.5 mg, oral, 3 times daily, First dose on Sun08/27/24 at 2100 0902 (Given - Provider: Nola Mcintosh R.N.)1431 (Given - Provider: Nola Mcintosh R.N.)2019 (Given - Provider: Adriana Lou R.N.) 0923 (Given - Provider: Kwesi Thayer R.N.)1248 (Given - Provider: Chelsea Veras R.N.)2023 (Given - Provider: Sharath Krishna R.N.) 0622 (Given - Provider: Adriana Lou R.N.)1153 (Given - Provider: Chelsea Veras R.N.) sodium chloride 0.9 % injection 3 mL 3 mL, intravenous, Every 12 hours scheduled, First dose on Sun08/27/24 at 2100, Peripheral Intravenous Catheter and Rapid Infusion Catheter, when no infusion to maintain patency 09 (Given - Provider: Nola Mcintosh R.N.)2099 (Due) 0934 (Given - Provider: Kwesi Thayer R.N.)2025 (Given - Provider: Sharath Krishna R.N.) 09 (Given - Provider: Kwesi Thayer R.N.) sulfamethoxazole-trimetho prim 400-80 mg per tablet 1 tablet (Bactrim) (CANCELED) 1 tablet, oral, Daily, First dose on Carissa 08/28/24 at 0900, For 3 days, Drug Monitoring Program: Pharmacist to adjust medication dosing based on indication and drug clearance factors., Indications: Prophylaxis, medical 901 (Given - Provider: Nola Mcintosh R.N.) tamsulosin 24 hr capsule 0.4 mg (Flomax) 0.4 mg, oral, Daily at bedtime, First dose on Sun08/27/24 at 2100, Swallow whole. Do NOT crush, chew or open capsule. 2019 (Given - Provider: Adriana Lou R.N.) 2023 (Given - Provider: Sharath Krishna R.N.) torsemide tablet 100 mg (Demadex) (COMPLETED) 100 mg, oral, 2 times daily, First dose on 08/30/24 at 1115, For 2 doses 1209 (Given - Provider: Chelsea Veras R.N.)2024 (Given - Provider: Sharath Krishna R.N.) torsemide tablet 60 mg (Demadex) 60 mg, oral, 2 times daily, First dose on Sun08/31/24 at 0930 0929 (Given - Provider: Kwesi Thayer R.N.) warfarin management (Jantoven) oral, Daily, First dose on Sun08/27/24 at 1815, Pharmacist to Dose: Yes, Target INR: 2 - 3, Comorbidities that constitute Warfarin Sensitivity: Post-cardiac valve surgery, Acute heart failure (e.g., fluid retention, pulmonary edema), Heart failure diagnosis (stable/compensated), Indication: Aortic valve - Mechanical, Therapy type: Continuation Warfarin therapy 1700 (Due) 1700 (Due) warfarin tablet 2 mg (Jantoven) (COMPLETED) 2 mg, oral, Once, On Sun08/29/24 at 1700, For 1 dose, HAZARDOUS - Handle with care. Swallow whole. Do NOT chew or split tablet. May crush using the RxCrush system. 1716 (Given - Provider: Chelsea Veras R.N.) warfarin tablet 2 mg (Jantoven) (COMPLETED) 2 mg, oral, Once, On Sun08/30/24 at 1700, For 1 dose, HAZARDOUS - Handle with care. Swallow whole. Do NOT chew or split tablet. May crush using the RxCrush system. 1700 (Given - Provider: Chelsea Veras R.N.) PRN Medication Order 08/29/2024 08/30/2024 08/31/2024 acetaminophen tablet 1,000 mg (TylenoL) 1,000 mg, oral, Every 6 hours PRN, mild pain or score 1-3 of 10, moderate pain or score 4-6 of 10, severe pain or score 7-10 of 10, headaches, fever, Starting on Sun08/27/24 at 1751 0902 (Given - Provider: Nola Mcintosh R.N.)2022 (Given - Provider: Adriana Lou R.N.) 0321 (Given - Provider: Adriana Lou R.N.)0939 (Given - Provider: Chelsea Veras R.N.) 0040 (Given - Provider: Adriana Lou R.N.)0912 (Given - Provider: Kwesi Thayer R.N.) naloxone injection 0.4 mg (Narcan) 0.4 mg, intravenous, As needed, reversal, respiratory depression, Starting on Carissa 08/28/24 at 0338 sodium chloride 0.9 % injection 10 mL 10 mL, intravenous, As needed, line care, Starting on Sun08/27/24 at 1751, Peripheral Intravenous Catheter and Rapid Infusion Catheter, prior to blood sampling, post blood transfusion or post blood sampling sodium chloride 0.9 % injection 3 mL 3 mL, intravenous, As needed, line care, Starting on Sun08/27/24 at 1751, Prior to and following infusion and between multiple consecutive infusions: sodium chloride 0.9 % injection Linked Groups Order Group 1: predniSONE tablet 20 mg (Deltasone) (COMPLETED) 20 mg, oral, Daily, First dose on Carissa 08/28/24 at 1200, For 1 day Followed by predniSONE tablet 17.5 mg (Deltasone)Jump to med 17.5 mg, oral, Daily, First dose on Sun08/29/24 at 1200, For 14 days Followed by predniSONE tablet 15 mg (Deltasone)Jump to med 15 mg, oral, Daily, First dose on Sun09/12/24 at 0900, For 14 days documented in this encounter Additional Health Concerns Assessment Noted Time PHQ-9 Depression Total Score: 3 08/30/20 24 6:00 AM CDT documented as of this encounter Care Teams Emergency Room Specialist Relationship Specialty Start Date End Date Elsewhere, Pcp PCP - General Internal Medicine 07/28/24 documented as of this encounter
--- OUTSIDE RECORDS SUMMARY | 2024-09-02 15:12 | XMS_ITS | Encounter Summary ---
Author Organization [facility] Address [address] [place] [address] Care Team Providers Care Sex Worker Or Escort Name Role Phone Elsewhere, Pcp Primary Care Provider Unavailabl e Encounter Details Date Type Department Care Team (Late st Contact Info) Description 08/31/2024 9:45 AM CDT Ancillary Procedure Department of Nursing Arrived Social History Tobacco Use Types Packs/Day Years Used Date Smoking Tobacco: Never Smokeless Tobacco: Never Comments:Smoked recreational ly over 40 years ago - a few cigarettes once in a while. Alcohol Use Standard Drinks/Week Comments Never 0 (1 standard drink = 0.6 oz pur e alcohol) [facility] Utilities Answer Date Recorded In the past 12 months has e electric, gas, oil, or water [employer] threatened to shut off services in your [...] a [facility] place to live 08/27/2024 Sex and [...] 2:45 PM CDT Appointment Department of Radiology, [facility], in [place], [place] [address] [place] [phone] Deven Clement M.D., M.S. [address] [place] [phone] 09/08/2024 7:15 AM CDT Clinical Communication Virtual Review in [place], [place] [address] [place] [phone] 09/16/2024 1:00 PM MIDDLE SCHOOL COUNSELOR Appointment Department of Radiology, [facility] in [place], [place] [address] [place] [phone] Deven Clement M.D., M.S. [address] [place] [phone] 09/16/2024 1:20 PM MIDDLE SCHOOL COUNSELOR Appointment Department of Laboratory Medicine and Pathology, [facility] in [place], [place] [address] [place] [phone] Deven Clement M.D., M.S. [address] [place] [phone] 09/16/2024 1:40 PM MIDDLE SCHOOL COUNSELOR Ancillary Procedure Department of Cardiovascular Medicine in [address] [phone] Deven Clement M.D., M.S. [address] [place] [phone] 09/16/2024 4:00 PM MIDDLE SCHOOL COUNSELOR Comprehensive Visit Department of Cardiovascular Medicine in [address] [phone] Keagan Tellez M.D. [address] [place] [phone] documented as of this encounter Procedures Procedure Name Priority Date/Time Associated Diagnosis Comments NURSING IMAGE EXAM Routine 08/31/2024 9: 45 AM CDT documented in this encounter Results * Leg, right-Nursing Image Exam (08/31/2024 9:45 AM CDT) 08/31/2024 9:44 AM CDT Narrative IIMS - 08/31/2024 9:47 AM CDT This order has been created and auto-finalized to support the import of images acquired without order. The clinical documentation to support these images can be found on the encounter that produced images. us Provider Not In System IMG NON RAD IMAGING PROCE DURES Final Result IIMS NA documented in this encounter Visit Diagnoses Not on filedocumented in this encounter Additional Health Concerns Assessment Noted Time PHQ-9 Depression Total Score: 3 08/30/20 24 6:00 AM CDT documented as of this encounter Care Teams Sex Worker Or Escort Relationship Specialty Start Date End Date Elsewhere, Pcp PCP - General Internal Medicine 07/28/24 documented as of this encounter
--- OUTSIDE RECORDS SUMMARY | 2024-09-02 15:12 | XMS_ITS | Encounter Summary ---
Author Organization [facility] Address [address] [place] [address] Care Team Providers Care Buyer Broker Name Role Phone Elsewhere, Pcp Primary Care Provider Unavailabl e Encounter Details Date Type Department Care Team (Latest Contact Info) Description 09/02/2024 Clinical Communication Department of Cardiovascular Medicine in [place], [place] [address] [place] [address] Eneida Loya, RJarrettNJarrett [address] [place] [address] Social History Tobacco Use Types Packs/Day Years Used Date Smoking Tobacco: Never Smokeless Tobacco: Never Comments:Smoked recreational ly over 40 years ago - a few cigarettes once in a while. Alcohol Use Standard Drinks/Week Comments Never 0 (1 standard drink = 0.6 oz pur e alcohol) [facility] Utilities Answer Date Recorded In the past 12 months has [facility] [employer], gas, oil, or water [employer] threatened to shut off services in your [...] a [facility] place to live 08/27/2024 Sex [...] 2:45 PM CDT Appointment Department of Radiology, [facility], in [place], [place] [address] [place] [phone] Deven Clement M.D., M.S. [address] [place] [phone] 09/08/2024 7:15 AM CDT Clinical Communication Virtual Review in [place], [place] 200 [place] [phone] 09/16/2024 1:00 PM TITLE DEPARTMENT MANAGER Appointment Department of Radiology, [facility], in [place], [place] [address] [place] [phone] Deven Clement M.D., M.S. [address] [place] [phone] 09/16/2024 1:20 PM TITLE DEPARTMENT MANAGER Appointment Department of Laboratory Medicine and Pathology, [facility], in [place], [place] [address] [place] [phone] Deven Clement M.D., M.S. [address] [place] [phone] 09/16/2024 1:40 PM TITLE DEPARTMENT MANAGER Ancillary Procedure Department of Cardiovascular Medicine in [place], [place] [address] [place] [phone] Deven Clement M.D., M.S. [address] [place] [phone] 09/16/2024 4:00 PM TITLE DEPARTMENT MANAGER Comprehensive Visit Department of Cardiovascular Medicine in [place], [place] [address] [place] [phone] Keagan Tellez M.D. [address] [place] [phone] documented as of this encounter Visit Diagnoses Not on filedocumented in this encounter Additional Health Concerns Assessment Noted Time PHQ-9 Depression Total Score: 3 08/30/20 24 6:00 AM CDT documented as of this encounter Care Teams Buyer Broker Relationship Specialty Start Date End Date Elsewhere, Pcp PCP - General Internal Medicine 07/28/24 documented as of this encounter
--- OUTSIDE RECORDS SUMMARY | 2024-09-02 15:12 | XMS_ITS | Encounter Summary ---
Author Organization [facility] Address [address] [place] [address] Care Team Providers Care Rn Lactation Name Role Phone Elsewhere, Pcp Primary Care Provider Unavailabl e Encounter Details Date Type Department Care Team (Late st Contact Info) Description 08/31/2024 9:50 AM CDT Ancillary Procedure Department [...] has e electric, gas, oil, or water [employer] threatened to shut off services in your [...] [facility] live 08/27/2024 Sex and [...] 2:45 PM CDT Appointment Department of Radiology, [facility], in [place], [place] [address] [place] [phone] Deven Clement M.D., M.S. [address] [place] [phone] 09/08/2024 7:15 AM CDT Clinical Communication Virtual Review in [place], [place] 200 [place] [phone] 09/16/2024 1:00 PM LEATHER STRETCHER Appointment Department of Radiology, [facility] in [place], [place] [address] [place] [phone] Deven Clement M.D., M.S. [address] [place] [phone] 09/16/2024 1:20 PM LEATHER STRETCHER Appointment Department of Laboratory Medicine and Pathology, [facility] in [place], [place] [address] [place] [phone] Deven Clement M.D., M.S. [address] [place] [phone] 09/16/2024 1:40 PM LEATHER STRETCHER Ancillary Procedure Department of Cardiovascular Medicine in [address] [phone] Deven Clement M.D., M.S. [address] [place] [phone] 09/16/2024 4:00 PM LEATHER STRETCHER Comprehensive Visit Department of Cardiovascular Medicine in [address] [phone] Keagan Tellez M.D. [address] [place] [phone] documented as of this encounter Procedures Procedure Name Priority Date/Time Associated Diagnosis Comments NURSING IMAGE EXAM Routine 08/31/2024 9: 47 AM CDT documented in this encounter Results * Leg, left-Nursing Image Exam (08/31/2024 9:47 AM CDT) 08/31/2024 9:44 AM CDT Narrative [...] as of this encounter Care Teams Rn Lactation Relationship Specialty Start Date End Date Elsewhere, Pcp PCP - General Internal Medicine 07/28/24 documented as of this encounter
--- OUTSIDE RECORDS SUMMARY | 2024-09-02 15:12 | XMS_ITS | Encounter Summary ---
Author Organization [facility] Address [address] [place] [address] Care Team Providers Care Metal Technician Name Role Phone Elsewhere, Pcp Primary Care Provider Unavailabl e Reason for Visit * Reason Onset Date Comments Post Hospital Follow-up 09/02/2024 Encounter Details Date Type Department Care Team (Latest Contact Info) Description 09/02/2024 Clinical Communication Department of Cardiovascular Medicine in [place], [place] [address] [place] [phone] Mando Fang M.D., Ph.D. [address] [place] [phone] Post Hospital Follow-up Social History Tobacco Use Types Packs/Day Years Used Date Smoking Tobacco: Never Smokeless Tobacco: Never Comments:Smoked recreational ly over 40 years ago - a few cigarettes once in a while. Alcohol Use Standard Drinks/Week Comments Never 0 (1 standard drink = 0.6 oz pur e alcohol) [facility] Utilities Answer Date Recorded In the past 12 months has [facility] [employer], gas, oil, or water [employer] threatened to shut off services in your [...] a [facility] place to live 08/27/2024 Sex and [...] 2:45 PM CDT Appointment Department of Radiology, [facility], in [place], [place] [address] [place] [phone] Deven Clement M.D., M.S. [address] [place] [phone] 09/08/2024 7:15 AM CDT Clinical Communication Virtual Review in [place], [place] 200 [place] [phone] 09/16/2024 1:00 PM EDUCATION DIRECTOR [facility] in [place], [place] [address] [place] [phone] Deven Clement M.D., M.S. [address] [place] [phone] 09/16/2024 1:20 PM EDUCATION DIRECTOR Appointment Department of Laboratory Medicine and Pathology, [facility] in [place], [place] [address] [place] [phone] Deven Clement M.D., M.S. [address] [place] [phone] 09/16/2024 1:40 PM EDUCATION DIRECTOR Ancillary Procedure Department of Cardiovascular Medicine in [place], [place] [address] [place] [phone] Deven Clement M.D., M.S. [address] [place] [phone] 09/16/2024 4:00 PM EDUCATION DIRECTOR Comprehensive Visit Department of Cardiovascular Medicine in [place], [place] [address] [place] [phone] Keagan Tellez M.D. [address] [place] [phone] documented as of this encounter Visit Diagnoses Not on filedocumented in this encounter Additional Health Concerns Assessment Noted Time PHQ-9 Depression Total Score: 3 08/30/20 24 6:00 AM CDT documented as of this encounter Care Teams Metal Technician Relationship Specialty Start Date End Date Elsewhere, Pcp PCP - General Internal Medicine 07/28/24 documented as of this encounter
--- OUTSIDE RECORDS SUMMARY | 2024-09-02 15:12 | XMS_ITS ---
Author Organization [facility] Address [address] [place] [address] Care Team Providers Care Hydrometeorologist Name Role Phone Unavailable Unavailable Unavailable Surgery Details Not on file Complications Check Surgery Details section. Procedure Estimated Blood Loss Check Surgery Details section. Procedure Findings Check Surgery Details section. Procedure Specimens Taken Check Surgery Details section.
--- OUTSIDE RECORDS SUMMARY | 2024-09-02 15:13 | XMS_ITS | Encounter Summary ---
[facility] Organization [facility] Address [address] [place] [address] Care Team Providers Care Public Information Director Name Role Phone Elsewhere, Pcp Primary Care Provider Unavailabl e Reason for Visit * Reason Onset Date Comments Communication 08/06/2024 Encounter Details Date Type Department Care Team (Latest Contact Info) Description 08/06/2024 Clinical Communication Division of Endocrinology in [place], [place] [address] [place] [address] [phone] Emerson Goddard, R.N. Communication Social History Tobacco [...] Recorded In the past 12 months has [facility] [employer], gas, oil, or water [employer] threatened to shut off services in your [...] your living situation today? I have a [facility] place to live 07/25/2024 Sex [...] 2:45 PM CDT Appointment Department of Radiology, [facility] in [address] [phone] Deven Clement M.D., M.S. [address] [place] [phone] 09/08/2024 7:15 AM CDT Clinical Communication Virtual Review in [place], [place] 200 [place] [phone] 09/16/2024 1:00 PM HOP TRAINER Appointment Department of Radiology, [facility] in [place], [place] [address] [place] [phone] Deven Clement M.D., M.S. [address] [place] [phone] 09/16/2024 1:20 PM HOP TRAINER Appointment Department of Laboratory Medicine and Pathology, [facility], in [place], [place] [address] [place] [phone] Deven Clement M.D., M.S. [address] [place] [phone] 09/16/2024 1:40 PM HOP TRAINER Ancillary Procedure Department of Cardiovascular Medicine in [place], [place] [address] [place] [phone] Deven Clement M.D., M.S. [address] [place] [phone] 09/16/2024 4:00 PM HOP TRAINER Comprehensive Visit Department of Cardiovascular Medicine in [place], [place] [address] [place] [phone] Keagan Tellez M.D. [address] [place] [phone] documented as of this encounter Visit Diagnoses Not on filedocumented in this encounter Additional Health Concerns Assessment Noted Time PHQ-9 Depression Total Score: 1 09/10/20 23 2:06 PM CDT documented as of this encounter Care Teams Public Information Director Relationship Specialty Start Date End Date Elsewhere, Pcp PCP - General Internal Medicine 07/28/24 documented as of this encounter
--- OUTSIDE RECORDS SUMMARY | 2024-09-02 15:13 | XMS_ITS | Encounter Summary ---
Author Organization [facility] Address [address] [place] [address] Care Team Providers Care Engineering Inspection Assistant Name Role Phone Elsewhere, Pcp Primary Care Provider Unavailabl e Reason for Visit * Reason Onset Date Comments Dose Adjustment 08/05/2024 Encounter Details Date Type Department Care Team (Latest Contact Info) Description 08/05/2024 Clinical Communication Division of Endocrinology in [place], [place] [address] [place] [phone] Lola Payan R.N. [address] [place] [address] Dose Adjustment Social History Tobacco Use Types Packs/Day Years Used Date Smoking Tobacco: Never Smokeless Tobacco: Never Comments:Smoked recreational ly over 40 years ago - a few cigarettes once in a while. Alcohol Use Standard Drinks/Week Comments Never 0 (1 standard drink = 0.6 oz pur e alcohol) [facility] Utilities Answer Date Recorded In the past 12 months has [facility] [employer], gas, oil, or water [employer] threatened to shut off services in your [...] your living situation today? I have a [facility] place to live 07/25/2024 Sex and Gender [...] 2:45 PM CDT Appointment Department of Radiology, [facility] in [address] [phone] Deven Clement M.D., M.S. [address] [place] [phone] 09/08/2024 7:15 AM CDT Clinical Communication Virtual Review in [place], [place] 200 [place] [address] 09/16/2024 1:00 PM ANALYTICAL LAB ANALYST Appointment Department of Radiology, [facility], in [address] [phone] Deven Clement M.D., M.S. [address] [place] [phone] 09/16/2024 1:20 PM ANALYTICAL LAB ANALYST Appointment Department of Laboratory Medicine and Pathology, [facility], in [place], [place] [address] [place] [phone] Deven Clement M.D., M.S. [address] [place] [phone] 09/16/2024 1:40 PM ANALYTICAL LAB ANALYST Ancillary Procedure Department of Cardiovascular Medicine in [place], [place] [address] [place] [phone] Deven Clement M.D., M.S. [address] [place] [phone] 09/16/2024 4:00 PM ANALYTICAL LAB ANALYST Comprehensive Visit Department of Cardiovascular Medicine in [place], [place] [address] [place] [phone] Keagan Tellez M.D. [address] [place] [phone] documented as of this encounter Visit Diagnoses Not on filedocumented in this encounter Additional Health Concerns Assessment Noted Time PHQ-9 Depression Total Score: 1 09/10/20 23 2:06 PM CDT documented as of this encounter Care Teams Engineering Inspection Assistant Relationship Specialty Start Date End Date Elsewhere, Pcp PCP - General Internal Medicine 07/28/24 documented as of this encounter
--- OUTSIDE RECORDS SUMMARY | 2024-09-02 15:13 | XMS_ITS | Encounter Summary ---
Author Organization [facility] Address [address] [place] [address] Care Team Providers Care Office Helper Clerical Name Role Phone Elsewhere, Pcp Primary Care Provider Unavailabl e Encounter Details Date Type Department Care Team (Late st Contact Info) Description 08/28/2024 8:30 AM CDT Ancillary Procedure Department of Nursing Social History Tobacco Use Types Packs/Day Years Used Date Smoking Tobacco: Never Smokeless Tobacco: Never Comments:Smoked recreational ly over 40 years ago - a few cigarettes once in a while. Alcohol Use Standard Drinks/Week Comments Never 0 (1 standard drink = 0.6 oz pur e alcohol) [facility] Utilities Answer Date Recorded In [...] [facility] place [facility] 08/27/2024 Sex and Gender [...] 2:45 PM CDT Appointment Department of Radiology, [facility], in [place], [place] [address] [place] [address] Deven Clement M.D., M.S. [address] [place] [phone] 09/08/2024 7:15 AM CDT Clinical Communication Virtual Review in [place], [place] 200 [place] [phone] 09/16/2024 1:00 PM ROADS SUPERINTENDENT Appointment Department of Radiology, [facility] in [place], [place] [address] [place] [phone] Deven Clement M.D., M.S. [address] [place] [phone] 09/16/2024 1:20 PM ROADS SUPERINTENDENT Appointment Department of Laboratory Medicine and Pathology, [facility] in [place], [place] [address] [place] [phone] Deven Clement M.D., M.S. [address] [place] [phone] 09/16/2024 1:40 PM ROADS SUPERINTENDENT Ancillary Procedure Department of Cardiovascular Medicine in [place], [place] [address] [place] [phone] Deven Clement M.D., M.S. [address] [place] [phone] 09/16/2024 4:00 PM ROADS SUPERINTENDENT Comprehensive Visit Department of Cardiovascular Medicine in [place], [place] [address] [place] [phone] Keagan Tellez M.D. [address] [place] [phone] documented as of this encounter Procedures Procedure Name Priority Date/Time Associated Diagnosis Comments NURSING IMAGE EXAM Routine 08/28/2024 8: 30 AM CDT documented in this encounter Results * Leg, left-Nursing Image Exam (08/28/2024 8:30 AM CDT) 08/28/2024 8:30 AM CDT Narrative [facility] - 08/28/2024 8:33 AM CDT This order has been created [...] documented as of this encounter Care Teams Office Helper Clerical Relationship Specialty Start Date End Date Elsewhere, Pcp PCP - General Internal Medicine 07/28/24 documented as of this encounter
--- OUTSIDE RECORDS SUMMARY | 2024-09-02 15:13 | XMS_ITS | Encounter Summary ---
Author Organization [facility] Address [address] [place] [address] Care Team Providers Care Local Driver Name Role Phone Elsewhere, Pcp Primary Care Provider Unavailabl e Encounter Details Date Type Department Care Team (Late st Contact Info) Description 08/27/2024 2:10 PM CDT Ancillary Procedure Department of Emergency Medicine Social History Tobacco Use Types Packs/Day Years Used Date Smoking Tobacco: Never Smokeless Tobacco: Never Comments:Smoked recreational ly over 40 years ago - a few cigarettes once in a while. Alcohol Use Standard Drinks/Week Comments Never 0 (1 standard drink = 0.6 oz pur e alcohol) [facility] Utilities Answer Date Recorded In the past 12 months has e electric, gas, oil, or water [employer] threatened to shut off services in your [...] a [facility] place to live 08/27/2024 Sex and [...] 2:45 PM CDT Appointment Department of Radiology, [facility], in [place], [place] [address] [place] [address] Deven Clement M.D., M.S. [address] [place] [phone] 09/08/2024 7:15 AM CDT Clinical Communication Virtual Review in [place], [place] 200 [place] [phone] 09/16/2024 1:00 PM UNIVERSITY LECTURER Appointment Department of Radiology, [facility] in [place], [place] [address] [place] [phone] Deven Clement M.D., M.S. [address] [place] [phone] 09/16/2024 1:20 PM UNIVERSITY LECTURER Appointment Department of Laboratory Medicine and Pathology, [facility] in [place], [place] [address] [place] [phone] Deven Clement M.D., M.S. [address] [place] [phone] 09/16/2024 1:40 PM UNIVERSITY LECTURER Ancillary Procedure Department of Cardiovascular Medicine in [address] [phone] Deven Clement M.D., M.S. [address] [place] [phone] 09/16/2024 4:00 PM UNIVERSITY LECTURER Comprehensive Visit Department of Cardiovascular Medicine in [place], [place] [address] [place] [phone] Keagan Tellez M.D. [address] [place] [phone] documented as of this encounter Procedures Procedure Name Priority Date/Time Associated Diagnosis Comments EMERGENCY MEDICINE IMAGE EXAM Routine 08/27/2024 2:10 PM CDT documented in this encounter Results * Leg-Emergency Medicine Image Exam (08/27/2024 2:10 [...] documented as of this encounter Care Teams Local Driver Relationship Specialty Start Date End Date Elsewhere, Pcp PCP - General Internal Medicine 07/28/24 documented as of this encounter
--- OUTSIDE RECORDS SUMMARY | 2024-09-02 15:13 | XMS_ITS | Encounter Summary ---
Author Organization [facility] Address [address] [place] [address] Care Team Providers Care Silk Screen Painter Name Role Phone Elsewhere, Pcp Primary Care Provider Unavailabl e Encounter Details Date Type Department Care Team (Late st Contact Info) Description 08/28/2024 8:35 AM CDT Ancillary Procedure Department of Nursing Social History Tobacco Use Types Packs/Day Years Used Date Smoking Tobacco: Never Smokeless Tobacco: Never Comments:Smoked recreational ly over 40 years ago - a few cigarettes once in a while. Alcohol Use Standard Drinks/Week Comments Never 0 (1 standard drink = 0.6 oz pur e alcohol) [facility] Utilities Answer Date Recorded In the [...] have a [facility] place to live 08/27/2024 Sex and [...] 2:45 PM CDT Appointment Department of Radiology, [facility], in [place], [place] [address] [place] [address] Deven Clement M.D., M.S. [address] [place] [phone] 09/08/2024 7:15 AM CDT Clinical Communication Virtual Review in [place], [place] 200 [place] [phone] 09/16/2024 1:00 PM BLAST FURNACE AUXILIARIES SUPERVISOR Appointment Department of Radiology, [facility] in [place], [place] [address] [place] [phone] Deven Clement M.D., M.S. [address] [place] [phone] 09/16/2024 1:20 PM BLAST [employer]NACE AUXIL[employer]IES SUPERVISOR Appointment Department of Laboratory Medicine and Pathology, [facility] in [place], [place] [address] [place] [phone] Deven Clement M.D., M.S. [address] [place] [phone] 09/16/2024 1:40 PM BLAST [employer]NACE AUXIL[employer]ARIES SUPERVISOR Ancillary Procedure Department of Cardiovascular Medicine in [place], [place] [address] [place] [phone] Deven Clement M.D., M.S. [address] [place] [phone] 09/16/2024 4:00 PM BLAST [employer] SUPERVISOR Comprehensive Visit Department of Cardiovascular Medicine in [place], [place] [address] [place] [phone] Keagan Tellez M.D. [address] [place] [phone] documented as of this encounter Procedures Procedure Name Priority Date/Time Associated Diagnosis Comments NURSING IMAGE EXAM Routine 08/28/2024 8: 33 AM CDT documented in this encounter Results * Leg, right-Nursing Image Exam (08/28/2024 8:33 AM CDT) 08/28/2024 8:30 AM CDT Narrative [...] documented as of this encounter Care Teams Silk Screen Painter Relationship Specialty Start Date End Date Elsewhere, Pcp PCP - General Internal Medicine 07/28/24 documented as of this encounter
--- OUTSIDE RECORDS SUMMARY | 2024-09-02 15:13 | XMS_ITS | Encounter Summary ---
Author Organization [facility] Address [address] [place] [address] Care Team Providers Care Cow Puncher Name Role Phone Elsewhere, Pcp Primary Care Provider Unavailabl e Reason for Visit * Reason Onset Date Comments Communication 08/04/2024 Encounter Details Date Type Department Care Team (Latest Contact Info) Description 08/04/2024 Clinical Communication Division of Endocrinology in [place], [place] [address] [place] [phone] Emerson Goddard, R.N. Communication Social History Tobacco Use Types Packs/Day Years Used Date Smoking Tobacco: Never Smokeless Tobacco: Never Comments:Smoked recreational ly over 40 years ago - a few cigarettes once in a while. Alcohol Use Standard Drinks/Week Comments Never 0 (1 standard drink = 0.6 oz pur e alcohol) [facility] Utilities Answer Date Recorded In the past [address] [facility] [email or web address], gas, oil, or water [employer] threatened to shut off services in your [...] 2:45 PM CDT Appointment Department of Radiology, [facility] in [address] [phone] Deven Clement M.D., M.S. [address] [place] [phone] 09/08/2024 7:15 AM CDT Clinical Communication Virtual Review in [address] [phone] 09/16/2024 1:00 PM LINING MECHANIC Appointment Department of Radiology, [facility], in [address] [phone] Deven Clement M.D., M.S. [address] [place] [phone] 09/16/2024 1:20 PM LINING MECHANIC Appointment Department of Laboratory Medicine and Pathology, [facility], in [address] [phone] Deven Clement M.D., M.S. [address] [place] [phone] 09/16/2024 1:40 PM LINING MECHANIC Ancillary Procedure Department of Cardiovascular Medicine in [place], [place] [address] [place] [phone] Deven Clement M.D., M.S. [address] [place] [phone] 09/16/2024 4:00 PM LINING MECHANIC Comprehensive Visit Department of Cardiovascular Medicine in [place], [place] [address] [place] [phone] Keagan Tellez M.D. [address] [place] [phone] documented as of this encounter Visit Diagnoses Not on filedocumented in this encounter Additional Health Concerns Assessment Noted Time PHQ-9 Depression Total Score: 1 09/10/20 23 2:06 PM CDT documented as of this encounter Care Teams Cow Puncher Relationship Specialty Start Date End Date Elsewhere, Pcp PCP - General Internal Medicine 07/28/24 documented as of this encounter
--- OUTSIDE RECORDS SUMMARY | 2024-09-02 15:14 | XMS_ITS | Encounter Summary ---
Author Organization [facility] Address [address] [place] [address] Care Team Providers Care Manager Retail Sales Name Role Phone Unavailable Primary Care Provider [...] 0.6 oz pur e alcohol) [facility] Utilities Answer Date Recorded In [...] your living situation today? I have a [facility] place to live 07/25/2024 Sex and [...] 2:45 PM CDT Appointment Department of Radiology, [facility], in [place], [place] [address] [place] [phone] Deven Clement M.D., M.S. [address] [place] [phone] 09/08/2024 7:15 AM CDT Clinical Communication Virtual Review in [place], [place] [address] [place] [address] 09/16/2024 1:00 PM LAUNDRY TUB MAKER Appointment Department of Radiology, [facility] in [place], [place] [address] [place] [phone] Deven Clement M.D., M.S. [address] [place] [phone] 09/16/2024 1:20 PM LAUNDRY TUB MAKER Appointment Department of Laboratory Medicine and Pathology, [facility] in [place], [place] [address] [place] [phone] Deven Clement M.D., M.S. [address] [place] [phone] 09/16/2024 1:40 PM LAUNDRY TUB MAKER Ancillary Procedure Department of Cardiovascular Medicine in [place], [place] [address] [place] [phone] Deven Clement M.D., M.S. [address] [place] [phone] 09/16/2024 4:00 PM LAUNDRY TUB MAKER Comprehensive Visit Department of Cardiovascular Medicine in [place], [place] [address] [place] [phone] Keagan Tellez M.D. [address] [place] [phone] documented as of this encounter Procedures Procedure [...]
--- OUTSIDE RECORDS SUMMARY | 2024-09-02 15:14 | XMS_ITS | Encounter Summary ---
Author Organization [facility] Address [address] [place] [address] Care Team Providers Care Transplant Surgeon Name Role Phone Unavailable Primary Care Provider [...] drink = 0.6 oz pur e alcohol) [facility] Utilities Answer Date Recorded In the [...] 2:45 PM CDT Appointment Department of Radiology, [facility], in [place], [place] [address] [place] [address] Deven Clement M.D., M.S. [address] [place] [phone] 09/08/2024 7:15 AM CDT Clinical Communication Virtual Review in [place], [place] 200 [place] [address] 09/16/2024 1:00 PM YOUTH LIAISON OFFICER Appointment Department of Radiology, [facility] in [place], [place] [address] [place] [phone] Deven Clement M.D., M.S. [address] [place] [phone] 09/16/2024 1:20 PM YOUTH LIAISON OFFICER Appointment Department of Laboratory Medicine and Pathology, [facility] in [place], [place] [address] [place] [phone] Deven Clement M.D., M.S. [address] [place] [phone] 09/16/2024 1:40 PM YOUTH LIAISON OFFICER Ancillary Procedure Department of Cardiovascular Medicine in [place], [place] [address] [place] [phone] Deven Clement M.D., M.S. [address] [place] [phone] 09/16/2024 4:00 PM YOUTH LIAISON OFFICER Comprehensive Visit Department of Cardiovascular Medicine in [place], [place] [address] [place] [phone] Keagan Tellez M.D. [address] [place] [phone] documented as of this encounter Procedures Procedure [...]
--- OUTSIDE RECORDS SUMMARY | 2024-09-02 15:14 | XMS_ITS | Encounter Summary ---
Author Organization [facility] Address [address] [place] [address] Care Team Providers Care Industrial Analyst Name Role Phone Elsewhere, Pcp Primary Care [...] drink = 0.6 oz pur e alcohol) [facility] Utilities Answer Date Recorded In the past [...] your living situation today? I have a [facility] place to live 07/25/2024 Sex [...] 2:45 PM CDT Appointment Department of Radiology, [facility], in [place], [place] [address] [place] [address] Deven Clement M.D., M.S. [address] [place] [phone] 09/08/2024 7:15 AM CDT Clinical Communication Virtual Review in [place], [place] 200 [place] [address] 09/16/2024 1:00 PM LIGHT INDUSTRIAL SUPERVISOR Appointment Department of Radiology, [facility] in [place], [place] [address] [place] [phone] Deven Clement M.D., M.S. [address] [place] [phone] 09/16/2024 1:20 PM LIGHT INDUSTRIAL SUPERVISOR Appointment Department of Laboratory Medicine and Pathology, [facility] in [place], [place] [address] [place] [phone] Deven Clement M.D., M.S. [address] [place] [phone] 09/16/2024 1:40 PM LIGHT INDUSTRIAL SUPERVISOR Ancillary Procedure Department of Cardiovascular Medicine in [place], [place] [address] [place] [phone] Deven Clement M.D., M.S. [address] [place] [phone] 09/16/2024 4:00 PM LIGHT INDUSTRIAL SUPERVISOR Comprehensive Visit Department of Cardiovascular Medicine in [place], [place] [address] [place] [phone] Keagan Tellez M.D. [address] [place] [phone] documented as of this encounter Procedures Procedure [...] as of this encounter Care Teams Industrial Analyst Relationship Specialty Start Date End Date Elsewhere, Pcp PCP - General Internal Medicine 07/28/24 documented as of this encounter
--- OUTSIDE RECORDS SUMMARY | 2024-09-02 15:14 | XMS_ITS | Encounter Summary ---
Author Organization [facility] Address [address] [place] [phone] Care Team Providers Care Design Release Engineer Name Role Phone Elsewhere, Pcp Primary Care Provider Unavailabl e Reason for Visit * Reason Comments Leg Swelling * Auth/Cert (Routine) Specialty Diagnoses / Procedures Referred By Contac t Referred To Contact Diagnoses Edema Leg Procedures OBS TO INPT Referral ID Status Reason Start Date Expiration Date Visits Re quested Visits Authorized [id number] 1 1 Encounter Details Date Type Department Care Team (Latest Contact Info) Description 07/24/2024 4:49 PM CDT - 08/01/2024 2:08 PM CDT Hospital Encounter [facility], [facility], [facility], Fourth Floor [address] [place] [phone] Fanny Goodwin M.D., M.S. [address] [place] [phone] Haily Campbell APRN, C.N.P., D.N.P. [address] [place] [phone] Josee Deviln P.A.-C., M.S. [address] [place] [phone] Yasmine Garduno M.D., Ph.D. [address] [place] [phone] Deven Clement M.D., M.S. [address] [place] [phone] Shameka Feldman M.D. [address] [place] [phone] Fanny Zelaya M.D. [address] Edema Leg (Primary Dx); Shortness Of [...] e alcohol) [facility] Utilities Answer Date Recorded In the past 12 months has e [employer], gas, oil, or water [employer] threatened to shut off services in your [...] [facility] place to live 07/25/2024 Sex and Gender [...] 01 Admitting/Central Scheduling 10/02/2024 10:00 AM ECG [facility] Cardiovascular Disease 10/02/2024 10:45 AM DX ROCH 02 RM 208 CHEST Radiology 10/02/2024 11:20 AM LAB BLOOD [facility]OHI CL C Laboratory Medicine 10/02/2024 12:45 PM MR ROGO 03 MR 44 1.5T Radiology 10/02/2024 2:00 [...] May. ED Course Mr Harris presented to [place] ED on 07/24/24 with complaints of progressive [...] None Primary Care Provider Fax Number: None Cosigned by Shameka Feldman M.D. at 08/01/2024 4:04 PM CDT documented in this encounter Discharge Instructions * Discharge Instructions* Quiana, Mary Bales APRN, RadhaNKory - 07/28/2024 2:30 PM CDT You were discharged from the RST [...] consistently out of goal range. Call in [facility]: Please call the Diabetes Consulting Service at (pager [phone]) from 7:30 AM to 9:00 AM for [...] management, yearly follow up with a local Package Drier and Dietitian is recommended. Please check with your insurance company as diabetes education visits are commonly covered. Your primary care provider can provide referrals for education. * Attachments The following attachments cannot be sent through Care Everywhere. * Insulin NPH (By injection) (South African) * Pantoprazole (By mouth) (South African) * Prednisone (By mouth) (South African) * Sulfamethoxazole/Trimethoprim (By mouth) (South African) documented in this encounter Medications at Time of Discharge aspirin 81 mg chewable tablet Chew 1 tablet (81 mg total) daily. 09/26/2023 09/25/20 24 atorvastatin (LIPITOR) 80 mg tablet Take 1 tablet (80 mg total) by mouth at bedtime. 09/26/2023 09/25/20 24 cholecalciferol 10 mcg (400 Unit) tablet Take 10 mcg by mouth daily. cyanocobalamin 2,000 mcg tablet Take 2,000 mcg by mouth daily. finasteride (PROSCAR) 5 mg tablet Take 1 tablet (5 mg total) by mouth daily. 09/26/2023 metoprolol succinate (TOPROL-XL) 50 mg 24 [...] mg total) by mouth at bedtime. 09/26/2023 warfarin (Jantoven) 1 mg tabletIndicatio ns:Prosthesis Aortic [...] 08/01/2024 2:47 PM CDT 08/01/2024 08/31/20 24 sulfamethoxazol e-trimethoprim (Bactrim) 400-80 mg per tabletIndicatio ns:Prophylaxis, medical Take 1 tablet by mouth daily for 28 doses Indications: Prophylaxis, medical. 28 tablet 08/01/2024 2:47 PM CDT 08/02/2024 08/31/20 24 torsemide (Demadex) 20 mg tablet Take 1 tablet (20 mg total) by mouth daily. 30 tablet 08/01/2024 08/31/20 acetaminophen (TYLENOL) 500 mg tablet Take 1,000 mg by mouth every 6 (six) hours as needed for pain. 08/27/20 insulin NPH (NovoLIN N FlexPen) 100 unit/mL (3 mL) pen Inject 20 units subcutaneously in the morning and 10 units in the evening. Call in for dose adjustment 15 mL 08/01/2024 2:47 PM CDT 08/01/2024 08/04/20 iron,carbonyl-v itamin C (VITRON-C) 65 mg iron- [address] tablet Take 1 tablet (65 mg of iron total) by mouth daily. Do not crush or chew. 90 tablet 3 01/01/2024 08/27/20 documented as of this encounter Progress Notes * Jana Holcomb R.N., CJarrettWJarrettOJarrettC.N. - 08/01/2024 11:12 AM CDT [facility] Wound RN reconsulted to assess Jong Nieto [...] None *Signs of Infection None *Wound Bed East Side;Open Tissue Exposed None Odor None *Exudate Amount [...] Secondary Dressing Status Clean;Dry;Intact Changed by Wound power plant operators supervisor Ongoing management Nursing;Patient/caregiver [REMOVED] Wound 07/28/24 Neuropathic [...] to the plan. The WOC RN will sign-off. Please place a wound care consult for any new concerns. Electronically signed by: Jana Holcomb R.N., CJarrettWJarrettOJarrettCJarrettN. 08/01/24 11:12 AM CDT Page Me Weekend Pager is [phone] (available Saturdays-1530) * Hyacinth Tavares, PharmJarrettD., R.Ph., [facility] - 08/01/2024 7:34 AM CDT Pharmacist Progress [...] Will continue with 2 mg today. Hyacinth Tavares, D., R.Ph., BCCP * Barbara Valencia M.B., B.Ch. [...] of steroids - DCS consulted - Holding NETWORK SUPPORT ENGINEER Glipizide - Moderate CS TID - NPH 10 units AM and 6 unit in PM - 1:10 ICR Aspart with meals TID #Paroxyasmal AF - Continue NETWORK SUPPORT ENGINEER Warfarin #BPH - Continue NETWORK SUPPORT ENGINEER Tamsulosin + Finasteride #Stroke #HTN #HLD VTE: N/A due to therapeutic anti-coagulation Code Status: Full Code Disposition: Uncertain Plan discussed with RST CARD 2 Car Manager, Deven Olmedo M.D., who was present during smallwood portions of the evaluation today. Misty Webb, B.Ch. Cosigned by Deven Clement M.D., M.S. at 07/31/2024 7:57 PM CDT Associated attestation - Deven Clement M.D., M.S. [...] the ultrasound. Prior chest x-ray has shown [id number] left pleural effusion. CRP at admission is [...] 2 weeks * Zunilda Kennedy, Pharm.D., R.Ph., [facility] - 07/31/2024 9:39 AM CDT [...] 2mg daily with INR check Sunday. Zunilda Kennedy, Ebony, R.Ph., BCPS * Barbara Valencia M.B., B.Ch. [...] of steroids - DCS consulted - Holding NETWORK SUPPORT ENGINEER Glipizide - Moderate CS TID - NPH 10 units AM and 6 unit in PM - 1:10 ICR Aspart with meals TID #Paroxyasmal AF - Continue NETWORK SUPPORT ENGINEER Warfarin #BPH - Continue NETWORK SUPPORT ENGINEER Tamsulosin + Finasteride #Stroke #HTN #HLD VTE: N/A due to therapeutic anti-coagulation Code Status: Full Code Disposition: Uncertain Plan discussed with RST CARD 2 Car Manager, Deven Olmedo M.D., who was present during smallwood portions of the evaluation today. Misty Webb, B.Ch. Cosigned by Deven Clement M.D., M.S. at 07/30/2024 7:01 PM CDT Associated attestation - Deven Clement M.D., M.S. [...] markers. Rest as per the team. * Rowean Alicea APRN, C.N.P., D.N.P. - 07/30/2024 10:44 [...] 1500 mL Fluid; Cardiovascular starting at 07/27 09 OBJECTIVE VITAL SIGNS Temperature: 36.8 ??C Heart [...] insulin twice daily in the setting of usp steroids. Once patient is off of steroids he can likely stop insulin and resume Glipizide. Blood Glucose Frequency: twice daily Goal: 120-180 mg/dL, higher goal due to comorbidities Final DCS recommendations and prescriptions updated for dismissal. Discussed above plan with the patient. Patient is alert and oriented and in agreement with the plan. DCS pager [phone] will continue to follow. Call primary service for diabetes concerns between 6:30 p.m. and 6:30 a.m. Primary service to contact acquisition editor Endocrinology fellow via hospital industrial truck operator for questions. * Zunilda Kennedy, Pharm.D., R.Ph., [facility] - 07/30/2024 9:21 AM CDT [...] due significant drug interaction with Bactrim. Zunilda Kennedy Pharm.D., R.Ph., BCPS * Yasmine [...] creat has ranged from 2-2.5) #6 Stroke 2018 #7 Paroxysmal atrial fibrillation #8 Type 2 [...] of steroids - DCS consulted - Holding NETWORK SUPPORT ENGINEER Glipizide - Moderate CS TID - NPH 10 units BID #Paroxyasmal AF - Continue NETWORK SUPPORT ENGINEER Warfarin #BPH - Continue NETWORK SUPPORT ENGINEER Tamsulosin + Finasteride #Stroke #HTN #HLD VTE: N/A due to therapeutic anti-coagulation Code Status: Full Code Disposition: Uncertain Plan discussed with RST CARD 2 Car Manager, Yasmine Cloud M.D., who was present during smallwood portions of the evaluation today. Misty Webb, B.Ch. * Max Garza RJarrettN. - 07/29/2024 1:22 PM CDT REASON FOR [...] patient to review AVS for final recommendations. chip mixing machine operator number provided for outpatient follow-up. REFERENCES: Medications: Insulin ([id number]) Using an insulin pen ([id number]) Diabetes Record Sheet ([id number]) Hypoglycemia ([id number]) Hyperglycemia ([id number]) * Jack Mcclendon, Pharm.D., R.Ph., BCPS, M.B.A. [...] 0.5 mg oral 3 times daily 07/24/24 205 Enzyme Inducers (From admission, onward) None Binders [...] 81 mg 81 mg oral Daily 07/24/24 205 INR reversal agents were not given. Warfarin [...] about patient's nutritional care please contact pager [phone] on weekdays or [phone] on weekends/holidays. * Yasmine Garduno M.D., Ph.D. [...] R.N., C.W.O.C.N. - 07/28/2024 11:35 AM CDT [facility] Wound RN reconsulted to assess Jong D [...] None *Signs of Infection None *Wound Bed Open;Brown;East Side Tissue Exposed None Odor Mild *Exudate Amount Scant Drainage Description Serosanguineous Gauri-wound Assessment Fragile Treatments Cleansed Periwound Treatment Cleansed (Comment) Wound Cleansed with Cleansing wipes *Primary Dressing Gelling fiber/Hydrofiber (Aquacel AG) *Primary Dressing Frequency of Change Daily & PRN Primary Dressing Changed New Primary Dressing Status Clean;Dry;Intact Changed by Wound power plant operators supervisor Ongoing management Nursing;Wound/gas engine operator generators Focused assessment completed as other wounds were [...] wounds. Electronically signed by: Jana Holcomb R.N., LiliyaCSammi 07/28/24 1:15 PM CDT Page Ar Weekend Pager is [phone] (available Saturdays-1530) * Barbara Valencia M.B., B.Ch. - 07/28/2024 [...] Problems: #T2DM c/b peripheral neuropathy - Holding NETWORK SUPPORT ENGINEER Glipizide - Moderate CS Insulin #Paroxyasmal AF - Continue NETWORK SUPPORT ENGINEER Warfarin #BPH - Continue NETWORK SUPPORT ENGINEER Tamsulosin + Finasteride #Stroke #HTN #HLD VTE: N/A due to therapeutic anti-coagulation Code Status: Full Code Disposition: Uncertain Plan discussed with RST CARD 2 Car Manager, Yasmine Cloud M.D., who was present during smallwood portions of the evaluation today. Misty Webb, B.Ch. * Zunilda Kennedy Pharm.D., R.Ph., [facility] - 07/28/2024 8:10 AM CDT [...] 2023 #5 CKD stage 3 #6 Stroke 2018 #7 Paroxysmal atrial fibrillation #8 Type 2 [...] Problems: #T2DM c/b peripheral neuropathy - Holding NETWORK SUPPORT ENGINEER Glipizide - Moderate CS Insulin #Paroxyasmal AF - Continue NETWORK SUPPORT ENGINEER Warfarin #BPH - Continue NETWORK SUPPORT ENGINEER Tamsulosin + Finasteride #Stroke #HTN #HLD VTE: N/A due to therapeutic anti-coagulation Code Status: Full Code Disposition: Uncertain Plan discussed with RST CARD 2 Car Manager, Yasmine Cloud M.D., who was present during smallwood portions of the evaluation today. Juan Carlos Gutierrez M.D. * Jack Bustos, PharmJarrettD., R.Ph. - 07/27/2024 10:45 AM CDT Warfarin [...] 2023 #5 CKD stage 3 #6 Stroke 2018 #7 Paroxysmal atrial fibrillation #8 Type 2 [...] Problems: #T2DM c/b peripheral neuropathy - Holding NETWORK SUPPORT ENGINEER Glipizide - Moderate CS Insulin #Paroxyasmal AF - Continue NETWORK SUPPORT ENGINEER Warfarin #BPH - Continue NETWORK SUPPORT ENGINEER Tamsulosin + Finasteride #CKD IIIB #Stroke #HTN #HLD VTE: N/A due to therapeutic anti-coagulation Code Status: Full Code Disposition: Uncertain Plan discussed with RST CARD 2 Car Manager, Yasmine Cloud M.D., who was present during smallwood portions of the evaluation today. Misty Webb, B.Ch. * Jack Bustos, Pharm.D., R.Ph. - 07/26/2024 7:17 AM CDT Pharmacist [...] List Status: Pharmacy Complete Set By: Palomo Varma, Pharm.DJarrett, R.Ph., [facility] at :42 PM Taking? Last Dose Informant Start Date [...] R.N., C.W.C.N. - 07/25/2024 1:42 PM CDT [facility] Wound RN consulted to assess Jong Harris [...] open wounds Date First Assessed/Time First Assessed: 09/13/24 1250 Present on Original Admission: Yes Wound Approximate Age at First Assessment: Unknown Primary Wound Type: Other Moisture Associated Skin Damage Location: Leg Wound Location Orientation: Bila... Pain Score 0 - none *Shape Round / oval *Tunneling none *Signs of Infection None Unable to Measure Y *Wound Bed Open;Partial thickness;East Side Tissue Exposed None Odor None *Exudate Amount Scant Drainage Description Serous Gauri-wound Assessment Edema;Dry *Primary Dressing Gelling fiber/Hydrofiber *Primary Dressing Frequency of Change Daily & PRN *Secondary Dressing Gauze;Compression wrap *Secondary Dressing Frequency of Change Daily & PRN Changed by Unit based nurse Complications none Ongoing management Nursing;Wound/gas engine operator generatorstrust manager assistant done by WOC RN? Yes Focused assessment completed as patient was sitting in chair with primary completing assessment. RNreported no other concerns. DRESSING RECOMMENDATIONS: #1 Moisture Associated Skin Damage Bilateral Lower Legs Circumferential -Cleanse the wound with Vashe wound cleanser and 4x4 gauze. Pat dry. -Place Aquacel Ag and cut to slightly [...] nursing. They agree to the plan. The [facility] RN will continue to see the patient, contact or reconsult for worsening wounds or new wounds. Electronically signed by: Jana Allen R.N., C.W.C.N. 07/25/24 1:44 PM CDT * Josee Devlin [...] CABG x1, PVI, and DAHIANA amputation (19-SEP-2023, [place]). 3. Normal left ventricular chamber size, calculated [...] - Commence Prednisone 20mg QD - Continue NETWORK SUPPORT ENGINEER Aspirin 81mg QD - Continue Warfarin - Continue Colchicine 0.3mg QD - Continue Metoprolol Succinate 50mg QD Chronic Problems: #T2DM c/b peripheral neuropathy - Holding NETWORK SUPPORT ENGINEER Glipizide - Moderate CS Insulin #Paroxyasmal AF - Continue NETWORK SUPPORT ENGINEER Warfarin #BPH - Continue NETWORK SUPPORT ENGINEER Tamsulosin + Finasteride #CKD IIIB #Stroke #HTN #HLD VTE: N/A due to therapeutic anti-coagulation Code Status: Full Code Disposition: Misty Caruso, B.Ch. 07/25/24 * Fanny Goodwin M.D., M.S. - 07/24/2024 8:53 PM CDT Emergency Department Observation H&P SUBJECTIVE CHIEF COMPLAINT/ REASON FOR VISIT The patient's chief complaint includes: Leg Swelling HISTORY OF PRESENT ILLNESS Mr. Harris is a 74 y.o. male who presents with shortness of breath and leg swelling. [facility] & Physical for further documentation [...] follow up. Fanny Goodwin M.D., M.S. 07/24/24 0503 documented in this encounter Consult Notes * [...] Readings: Recent Labs 07/29/24 0739 07/29/24 0738 07/28/24202207/28/24 1735 07/28/24 1200 GLUCOSEPO 106 -- 271 H 187 H 148 [...] Thank you for the consult. DCS pager [phone] will follow. Call primary service for diabetes concerns between 6:30 p.m. and 6:30 a.m. Primary service to contact acquisition editor Endocrinology fellow via hospital industrial truck operator for questions. * Benji Pizano M.D. - 07/25/2024 6:58 AM CDTAssociated Order(s): IP CONSULT TO CARDIOLOGY CARDIOLOGY CONSULT NOTE ED Requesting Car Manager: Haily Campbell APRN Cardiology Collaborating RN: Karen [...] CABG x1, PVI, and DAHIANA amputation (19-SEP-2023, [place]). 3. Normal left ventricular chamber size, calculated [...] this encounter Nursing Notes * Sally Shafer R.N. - 08/01/2024 1:34 PM CDT RN reviewed [...] REVIEW OF SYSTEMS OBJECTIVE Initial Vitals Temperature 07/24/241703 36.8 ??C Pulse Rate 07/24/241703 76 Heart Rate 07/24/241944 72 Resp Rate 07/24/241703 20 Blood Pressure 07/24/241703 118/68 SpO2 07/24/241703 97 % Pain Score [...] the morning. ED Course as of 07/24/242058 [facility] Jul 24, 20241946 ECG 12 Lead 2058 DX Chest AP or PA and Lateral 2 Views No significant change since the outside radiograph dated 06/04/2024. Final Diagnoses: as of 07/24/242058 Edema Leg Shortness Of Breath Effusion Pleural Ryan Sharpe 07/24/242058 Cosigned by Fanny Goodwin M.D., M.S. at 07/24/2024 11:39 PM CDT * Fanny Goodwin M.D., M.S. - 07/24/2024 [...] renal failure versus less likely ACS or NH. Also considered pleural effusion, pneumonia, or viral [...] a good candidate for observation in the [facility] with diuresis and cardiology consultation in the [...] or amended. Fanny Goodwin M.D., M.S. 07/24/24 231 * Emerson Burns D.N.P., R.N. - 07/24/2024 5:04 PM CDT Patient comes in with shortness of breath and lower extremity edema, worsening over the past few days. History of Aortic valve replacement (mechanical), with pericarditis complication. Since valve replacement, has suffered heart failure. Also significant CKD. His PCP at [facility] was unable to get him admitted due [...] exacerbation. IV Lasix, cardiology consultation. 07/25 H&P ([facility]) - 74 y/o male admit for constrictive [...] May. ED Course Mr Harris presented to [place] ED on 07/24/24 with complaints of progressive [...] CDT Appointment Department of Radiology, [facility] in [address] [phone] Deven Clement M.D., M.S. [address] [place] [phone] 09/08/2024 7:15 AM CDT Clinical Communication Virtual Review in [address] [phone] 09/16/2024 1:00 PM FUSING MACHINE TENDER Appointment Department of Radiology, [facility], in [place], [place] [address] [place] [phone] Deven Clement M.D., M.S. [address] [place] [phone] 09/16/2024 1:20 PM FUSING MACHINE TENDER Appointment Department of Laboratory Medicine and Pathology, [facility], in [place], [place] [address] [place] [phone] Deven Clement M.D., M.S. [address] [place] [phone] 09/16/2024 1:40 PM FUSING MACHINE TENDER Ancillary Procedure Department of Cardiovascular Medicine in [address] [phone] Deven Clement M.D., M.S. [address] [place] [phone] 09/16/2024 4:00 PM FUSING MACHINE TENDER Comprehensive Visit Department of Cardiovascular Medicine in [place], [place] [address] [place] [phone] Keagan Tellez M.D. [address] [place] [phone] documented as of this encounter Procedures Procedure [...] 3 AM CDT 08/01/2024 11:25 AM CDT us Unknown Provider LAB POCT ORDERABLES-MANUAL Edit ed Result - Final POC [facility] [address] [place] [address], [facility] PCLX [facility] POC [address] [place] [address] * (ABNORMAL) Prothrombin Time (PT) (08/01/2024 7:41 AM CDT) Prothrombin Time, P 22.1(H) 9.4 - 12.5 sec 08/01/2024 8:45 AM CDT DTL INR 2.0 0.9 - 1.1 08/01/2024 8:45 AM CDT DTL Comment: ----ADDITIONAL INFORMATION---- Standard intensity warfarin therapeutic range: 2.0 to 3.0 ?? High intensity warfarin therapeutic range: 2.5 to 3.5 Blood (Blood, Venous) 08/01/2024 7:41 AM CDT 08/01/2024 8:25 AM CDT us Yasmine Garduno M.D., Ph.D. LAB BLOOD ADD-ON Eliana david Result [facility] [address] [place] [address], [facility] [place] [address] [place] [address] * (ABNORMAL) CBC with Differential, Blood (08/01/2024 [...] M.S. LAB BLOOD ADD-ON Eliana l Result [facility] [address] [place] [address], [facility] DTL [facility] [address] [place] [address] * (ABNORMAL) Cystatin C with Estimated GFR (08/01/2024 7:40 AM CDT) [facility] eGFR by Cystatin C 17(L) >60 [...] 7:40 AM CDT 08/01/2024 8:48 AM CDT us Shameka Feldman M.D. LAB BLOOD ADD-ON Final Res ult [facility] [address] [place] [address], [place] DTL [facility] [address] [place] [address] * (ABNORMAL) Renal Function Panel (08/01/2024 7:40 [...] 7:40 AM CDT 08/01/2024 8:48 AM CDT us Deven Clement M.D., M.S. LAB BLOOD ADD-ON Eliana l Result [facility] [address] [place] [address], [facility] DTL [facility] [address] [place] [address] * (ABNORMAL) Glucose, POCT (08/01/2024 6:36 AM CDT) Glucose, POCT, B 144(H) 70 - 140 mg/dL 08/01/2024 6:39 AM CDT PCLX Last Intake > 4 hours 08/01/2024 6:39 AM CDT PCLX Blood 08/01/2024 6:36 AM CDT 08/01/2024 6:39 AM CDT us Unknown Provider LAB POCT ORDERABLES-MANUAL Eliana l Result Performing Organization Address [facility]/ZIP Co de Phone Number POC [facility] [address] [place] [address], [facility] PCLX [facility] POC 200 [place] [address] * (ABNORMAL) Glucose, POCT (07/31/2024 9:52 PM CDT) Glucose, POCT, B 284(H) 70 - 140 mg/dL 07/31/2024 10:05 PM CDT PCLX Last Intake 1-2 hours 07/31/2024 10:05 PM CDT PCLX Blood 07/31/2024 9:52 PM CDT 07/31/2024 10:05 PM CDT us Unknown Provider LAB POCT ORDERABLES-MANUAL Eliana l Result Performing Organization Address City/[facility]/ZIP Co de Phone Number [facility] [address] [place] [address], [facility] PCLX [facility] POC [address] [place] [address] * Glucose, POCT (07/31/2024 5:25 PM CDT) Glucose, POCT, B 110 70 - 140 mg/dL 07/31/2024 5:27 PM CDT PCLX Site Capillary 07/31/2024 5:27 PM CDT PCLX Last Intake 3-4 hours 07/31/2024 5:27 PM CDT PCLX Blood 07/31/2024 5:25 PM CDT 07/31/2024 5:27 PM CDT us Unknown Provider LAB POCT ORDERABLES-MANUAL Eliana l Result Performing Organization Address City/[facility]/ZIP Co de Phone Number [facility] [address] [place] [address], [facility] PCLX [facility] POC [address] [place] [address] * (ABNORMAL) Glucose, POCT (07/31/2024 12:09 PM CDT) Glucose, POCT, B 243(H) 70 - 140 mg/dL 07/31/2024 12:11 PM CDT PCLX Blood 07/31/2024 12:0 9 PM CDT 07/31/2024 12:11 PM CDT us Unknown Provider LAB POCT ORDERABLES-MANUAL Eliana l Result Performing Organization Address City/[facility]/ZIP Co de Phone Number [facility] [address] [place] [address], [facility] PCLX [facility] POC [address] [place] [address] * Dipstick, Urine (07/31/2024 11:33 AM CDT) [...] ORDERABLES Eliana l Result Performing Organization Address City/[facility]/ZIP Co de Phone Number [facility] [address] [place] [address], [place] [address] * pH, Urine (07/31/2024 11:33 AM CDT) pH, U 6.3 4.5 - 8.0 07/31/2024 12: 53 PM CDT DTL Urine 07/31/2024 11:3 3 AM CDT 07/31/2024 12:11 PM CDT Chelsea Izaguirre M.D. LAB URINE ORDERABLES Eliana l Result Performing Organization Address City/[facility] Co de Phone Number [facility] [address] [place] [address], [place] [address] * Microscopic Automated (07/31/2024 11:33 AM CDT) [...] ORDERABLES Eliana l Result Performing Organization Address City/[facility]/ZIP Co de Phone Number [facility] [address] [place] [address] * Osmolality, Urine (07/31/2024 11:33 AM CDT) Osmolality, U 358 150 - 1150 mOsm/kg 07/31/2024 12:53 PM CDT DTL Urine 07/31/2024 11:3 3 AM CDT 07/31/2024 12:11 PM CDT Chelsea Izaguirre M.D. LAB URINE ORDERABLES Eliana l Result Performing Organization Address [facility] Co de Phone Number [facility] [address] [place] [address] * (ABNORMAL) Urinalysis, with Microscopic: Urine, Midstream [...] M.D., M.S. LAB URINE ORDERABLES Final Result [facility] [address] [place] [address], [place] DTL [facility] [address] [place] [address] * US Kidneys Bilateral with Bladder (07/31/2024 [...] US PROCEDURES Fin al Result * (ABNORMAL) Prothrombin Time (PT) (07/31/2024 7:43 [...] ADD-ON Eliana l Result Performing Organization Address [facility] Co de Phone Number [facility] [address] [facility] 200 [place] [address] * (ABNORMAL) Magnesium (07/31/2024 7:43 AM CDT) Magnesium, S 2.5(H) 1.7 - 2.3 mg/dL 07/31/2024 10:14 AM CDT DTL Blood (Blood, Venous) 07/31/2024 7:43 AM CDT 07/31/2024 9:25 AM CDT Deven Clement M.D., M.S. LAB BLOOD ADD-ON Eliana l Result Performing Organization Address [facility] Co de Phone Number [facility] [address] [place], [place] [id number] [place] [address] * (ABNORMAL) Basic Metabolic Panel (07/31/2024 7:43 AM CDT) Potassium, S 4.2 3.6 - [...] Clement M.D., M.S. LAB BLOOD ADD-ON Eliana hernandez Result [facility] [address] [place] [address], [facility] [address] [place] [address] * (ABNORMAL) CBC with Differential, Blood (07/31/2024 7:43 AM CDT) Hemoglobin 12.0(L) 13.2 - 16.6 g/dL 07/31/2024 [...] - 6.45 x10(9)/L 07/31/2024 8:52 AM CDT PM Lymphocytes 1.28 0.95 - 3.07 x10(9)/L 07/31/2024 [...] M.S. LAB BLOOD ADD-ON Eliana l Result [facility] [address] [place] [address], [facility] DTL [facility] [address] [place] [address] [facility] [address] [place] [address] * Glucose, POCT (07/31/2024 6:11 AM CDT) [facility] Glucose, POCT, B 104 70 - 140 mg/dL 07/31/2024 6:15 AM CDT PCLX Last Intake 3-4 hours 07/31/2024 6:15 AM CDT PCLX Blood 07/31/2024 6:11 AM CDT 07/31/2024 6:15 AM CDT us Unknown Provider LAB POCT ORDERABLES-MANUAL Eliana l Result Performing Organization Address City/[facility]/ZIP Co de Phone Number [facility] 200 [place] [address], [facility] PCLX [facility] 200 [place] [address] * Glucose, POCT (07/30/2024 9:30 PM CDT) Glucose, POCT, B 138 70 - 140 mg/dL 07/30/2024 9:36 PM CDT PCLX Site Capillary 07/30/2024 9:36 PM CDT PCLX Last Intake > 4 hours 07/30/2024 9:36 PM CDT PCLX Blood 07/30/2024 9:30 PM CDT 07/30/2024 9:36 PM CDT us Unknown Provider LAB POCT ORDERABLES-MANUAL Eliana l Result Performing Organization Address [facility] Co de Phone Number [facility] [address] [place] [address], [facility] PCLX [facility] 200 [place] [address] * Glucose, POCT (07/30/2024 5:00 PM CDT) Glucose, POCT, B 118 70 - 140 mg/dL 07/30/2024 5:14 PM CDT PCLX Site Capillary 07/30/2024 5:14 PM CDT PCLX Last Intake > 4 hours 07/30/2024 5:14 PM CDT PCLX Blood 07/30/2024 5:00 PM CDT 07/30/2024 5:14 PM CDT us Unknown Provider LAB POCT ORDERABLES-MANUAL Eliana l Result Performing Organization Address [facility] Co de Phone Number [facility] [address] [place] [address], [facility] PCLX [facility] [address] [place] [address] * (ABNORMAL) Glucose, POCT (07/30/2024 12:06 PM CDT) Glucose, POCT, B 259(H) 70 - 140 mg/dL 07/30/2024 12:12 PM CDT PCLX Site Capillary 07/30/2024 12:12 PM CDT PCLX Last Intake 3-4 hours 07/30/2024 12:12 PM CDT PCLX Blood 07/30/2024 12:0 6 PM CDT 07/30/2024 12:12 PM CDT us Unknown Provider LAB POCT ORDERABLES-MANUAL Edit ed Result - Final Performing Organization Address [facility] de Phone Number [facility] 200 [place] [address], [facility] PCLX [facility] 200 [place] [address] * (ABNORMAL) Prothrombin Time (PT) (07/30/2024 8:03 AM CDT) Prothrombin Time, P 27.1(H) 9.4 - 12.5 sec 07/30/2024 9:07 AM CDT DTL INR 2.4 0.9 - 1.1 07/30/2024 9:07 AM CDT DTL Comment: ----ADDITIONAL INFORMATION---- Standard intensity warfarin therapeutic range: 2.0 to 3.0 ?? High intensity warfarin therapeutic range: 2.5 to 3.5 Blood (Blood, Venous) 07/30/2024 8:03 AM CDT 07/30/2024 8:25 AM CDT us Yasmine Garduno M.D., Ph.D. LAB BLOOD ADD-ON Eliana l Result Performing Organization Address City/[facility]/ZIP Co de Phone Number [facility] 200 [place] [address], [facility] DTL [facility] 200 [place] [address] * (ABNORMAL) Basic Metabolic Panel (07/30/2024 8:03 AM CDT) Potassium, S 4.2 3.6 - [...] 8:03 AM CDT 07/30/2024 8:43 AM CDT us Yasmine Garduno M.D., Ph.D. LAB BLOOD ADD-ON Eliana l Result [facility] 200 [place] [address], [facility] DTL [facility] [address] [place] [address] * (ABNORMAL) CBC with Differential, Blood (07/30/2024 [...] 8:03 AM CDT 07/30/2024 8:25 AM CDT us Yasmine Garduno M.D., Ph.D. LAB BLOOD ADD-ON Eliana hernandez Result [facility] 200 [place] [address], [facility] DTL [facility] 200 [place] [address] DHPM [facility] 200 [place] [address] * Glucose, POCT (07/30/2024 7:45 AM CDT) Glucose, POCT, B 105 70 - 140 mg/dL 07/30/2024 7:47 AM CDT PCLX Site Capillary 07/30/2024 7:47 AM CDT PCLX Last Intake > 4 hours 07/30/2024 7:47 AM CDT PCLX Blood 07/30/2024 7:45 AM CDT 07/30/2024 7:47 AM CDT us Unknown Provider LAB POCT ORDERABLES-MANUAL Eliana l Result [facility] [address] [place], [place] [id number] [place] [address] PCLX [facility] 200 [place] [address] * (ABNORMAL) Glucose, POCT (07/29/2024 9:32 PM CDT) Glucose, POCT, B 235(H) 70 - 140 mg/dL 07/29/2024 9:35 PM CDT PCLX Site Capillary 07/29/2024 9:35 PM CDT PCLX Last Intake 3-4 hours 07/29/2024 9:35 PM CDT PCLX Blood 07/29/2024 9:32 PM CDT 07/29/2024 9:35 PM CDT us Unknown Provider LAB POCT ORDERABLES-MANUAL Eliana l Result [facility] [address] [place], [place] [id number] [place] [address] PCLX [facility] [address] [place] [address] * (ABNORMAL) Glucose, POCT (07/29/2024 4:46 PM CDT) Glucose, POCT, B 239(H) 70 - 140 mg/dL 07/29/2024 4:49 PM CDT PCLX Site Capillary 07/29/2024 4:49 PM CDT PCLX Last Intake > 4 hours 07/29/2024 4:49 PM CDT PCLX Blood 07/29/2024 4:46 PM CDT 07/29/2024 4:49 PM CDT us Unknown Provider LAB POCT ORDERABLES-MANUAL Eliana l Result Performing Organization Address [facility]/ZIP Co de Phone Number [facility] [address] [place] [address], [facility] PCLX [facility] [address] [place] [address] * (ABNORMAL) Glucose, POCT (07/29/2024 11:30 AM CDT) Glucose, POCT, B 194(H) 70 - 140 mg/dL 07/29/2024 11:34 AM CDT PCLX Site Capillary 07/29/2024 11:34 AM CDT PCLX Last Intake 2-3 hours 07/29/2024 11:34 AM CDT PCLX Blood 07/29/2024 11:3 0 AM CDT 07/29/2024 11:34 AM CDT us Unknown Provider LAB POCT ORDERABLES-MANUAL Eliana l Result Performing Organization Address [facility] Co de Phone Number [facility] [address] [place] [address], [place] PCLX [facility] [address] [place] [address] * Glucose, POCT (07/29/2024 7:39 AM CDT) Glucose, POCT, B 106 70 - 140 mg/dL 07/29/2024 7:44 AM CDT PCLX Blood 07/29/2024 7:39 AM CDT 07/29/2024 7:44 AM CDT us Unknown Provider LAB POCT ORDERABLES-MANUAL Eliana l Result Performing Organization Address [facility] Co de Phone Number [facility] [address] [place] [address], [facility] PCLX [facility] 200 [place] [address] * (ABNORMAL) Prothrombin Time (PT) (07/29/2024 7:38 [...] BLOOD ADD-ON Final Result Performing Organization Address [facility] Co de Phone Number [facility] 200 [place] [address], [facility] 200 [place] [address] * (ABNORMAL) Basic Metabolic Panel (07/29/2024 7:38 [...] 7:38 AM CDT 07/29/2024 8:54 AM CDT us Yasmine Garduno M.D., Ph.D. LAB BLOOD ADD-ON Eliana david Result [facility] 200 [place] [address], [facility] 200 [place] [address] * (ABNORMAL) CBC with Differential, Blood (07/29/2024 [...] ADD-ON Eliana l Result Performing Organization Address City/[facility]/ZIP Co de Phone Number [facility] [address] [place] [address], [facility] [address] [place], [place] [id number] [place] [address] 200 [place] [address] * Magnesium (07/29/2024 7:38 AM CDT) Magnesium, S 2.2 1.7 - 2.3 mg/dL 07/29/2024 9:20 AM CDT DTL Blood (Blood, Venous) 07/29/2024 7:38 AM CDT 07/29/2024 8:54 AM CDT us Yasmine Garduno M.D., Ph.D. LAB BLOOD ADD-ON Eliana l Result [facility] [address] [place] [address], [facility] DTL [facility] 200 [place] [address] * (ABNORMAL) Hemoglobin A1c (07/29/2024 7:34 AM [...] BLOOD ADD-ON Final Result Performing Organization Address City/[facility]/ZIP Co de Phone Number [facility] [address] [place] [address], [facility] DTL [facility] 200 [place] [address] * (ABNORMAL) Glucose, POCT (07/28/2024 8:23 PM CDT) Glucose, POCT, B 271(H) 70 - 140 mg/dL 07/28/2024 8:40 PM CDT PCLX Site Capillary 07/28/2024 8:40 PM CDT PCLX Last Intake 3-4 hours 07/28/2024 8:40 PM CDT PCLX Blood 07/28/2024 8:23 PM CDT 07/28/2024 8:41 PM CDT Unknown Provider LAB POCT ORDERABLES-MANUAL Eliana l Result [facility] [address] [place] [address], [facility] PCLX [facility] 200 [place] [address] * (ABNORMAL) Glucose, POCT (07/28/2024 5:35 PM CDT) Glucose, POCT, B 187(H) 70 - 140 mg/dL 07/28/2024 5:37 PM CDT PCLX Site Capillary 07/28/2024 5:37 PM CDT PCLX Last Intake > 4 hours 07/28/2024 5:37 PM CDT PCLX Blood 07/28/2024 5:35 PM CDT 07/28/2024 5:38 PM CDT us Unknown Provider LAB POCT ORDERABLES-MANUAL Eliana l Result Performing Organization Address [facility] Co de Phone Number [facility] [address] [place] [address], [facility] PCLX [facility] [address] [place] [address] * (ABNORMAL) Glucose, POCT (07/28/2024 12:00 PM CDT) Glucose, POCT, B 148(H) 70 - 140 mg/dL 07/28/2024 12:03 PM CDT PCLX Site Capillary 07/28/2024 12:03 PM CDT PCLX Blood 07/28/2024 12:0 0 PM CDT 07/28/2024 12:03 PM CDT us Unknown Provider LAB POCT ORDERABLES-MANUAL Eliana l Result Performing Organization Address [facility] Co de Phone Number [facility] [address] [place] [address], [facility] PCLX [facility] [address] [place] [address] * (ABNORMAL) Basic Metabolic Panel (07/28/2024 9:57 [...] 9:57 AM CDT 07/28/2024 10:29 AM CDT us Yasmine Garduno M.D., Ph.D. LAB BLOOD ADD-ON Eliana l Result [address] [place] [address] * (ABNORMAL) CBC with Differential, Blood (07/28/2024 [...] 9:57 AM CDT 07/28/2024 10:17 AM CDT us Yasmine Garduno M.D., Ph.D. LAB BLOOD ADD-ON Eliana l Result [facility] [address] [place] [address], [facility] DTL [facility] [address] [place] [address] DHPM [facility] [address] [place] [address] * Magnesium (07/28/2024 9:57 AM CDT) Pathologist [facility] Magnesium, S 2.1 1.7 - 2.3 mg/dL 07/28/2024 11:17 AM CDT DTL Blood (Blood, Venous) 07/28/2024 9:57 AM CDT 07/28/2024 10:29 AM CDT us Yasmine Garduno M.D., Ph.D. LAB BLOOD ADD-ON Eliana l Result Performing Organization Address [facility] Co de Phone Number [facility] [address] [place] [address] * (ABNORMAL) Prothrombin Time (PT) (07/28/2024 9:56 AM CDT) Prothrombin Time, P 38.7(H) 9.4 - 12.5 sec 07/28/2024 10:46 AM CDT DTL INR 3.5 0.9 - 1.1 07/28/2024 10:58 AM CDT DTL Comment: ----ADDITIONAL INFORMATION---- Standard intensity warfarin therapeutic range: 2.0 to 3.0 ?? High intensity warfarin therapeutic range: 2.5 to 3.5 Blood (Blood, Venous) 07/28/2024 9:56 AM CDT 07/28/2024 10:17 AM CDT us Neftaly Gomez M.D. LAB BLOOD ADD-ON Final Result Performing Organization Address [facility] de Phone Number [facility] [address] [place] [address] * (ABNORMAL) Glucose, POCT (07/28/2024 8:52 AM CDT) Glucose, POCT, B 190(H) 70 - 140 mg/dL 07/28/2024 8:54 AM CDT PCLX Site Capillary 07/28/2024 8:54 AM CDT PCLX Last Intake 1-2 hours 07/28/2024 8:54 AM CDT PCLX Blood 07/28/2024 8:52 AM CDT 07/28/2024 8:54 AM CDT us Unknown Provider LAB POCT ORDERABLES-MANUAL Edit ed Result - Final Performing Organization Address City/[facility]/ZIP Co de Phone Number [facility] [address] [place] [address], [place] PCLX [facility] [address] [place] [address] * Glucose, POCT (07/28/2024 7:57 AM CDT) [facility] Glucose, POCT, B 81 70 - 140 mg/dL 07/28/2024 8:04 AM CDT PCLX Site Capillary 07/28/2024 8:04 AM CDT PCLX Blood 07/28/2024 7:57 AM CDT 07/28/2024 8:04 AM CDT us Unknown Provider LAB POCT ORDERABLES-MANUAL Eliana l Result [facility] [address] [place] [address], [facility] PCLX [facility] [address] [place] [address] * (ABNORMAL) Basic Metabolic Panel (07/27/2024 11:09 PM CDT) [facility] Potassium, S 3.9 3.6 - 5.2 mmol/L [...] ADD-ON Eliana l Result Performing Organization Address City/[facility]/ZIP Co de Phone Number [facility] [address] [place] [address], [facility] DTL [facility] 200 [place] [address] * (ABNORMAL) Glucose, POCT (07/27/2024 9:45 PM CDT) Glucose, POCT, B 207(H) 70 - 140 mg/dL 07/27/2024 9:48 PM CDT PCLX Site Capillary 07/27/2024 9:48 PM CDT PCLX Last Intake > 4 hours 07/27/2024 9:48 PM CDT PCLX Blood 07/27/2024 9:45 PM CDT 07/27/2024 9:48 PM CDT us Unknown Provider LAB POCT ORDERABLES-MANUAL Eliana l Result Performing Organization Address [facility] Co de Phone Number [facility] [address] [place] [address], [facility] PCLX [facility] [address] [place] [address] * (ABNORMAL) Glucose, POCT (07/27/2024 4:27 PM CDT) Glucose, POCT, B 176(H) 70 - 140 mg/dL 07/27/2024 4:32 PM CDT PCLX Site Capillary 07/27/2024 4:32 PM CDT PCLX Blood 07/27/2024 4:27 PM CDT 07/27/2024 4:32 PM CDT us Unknown Provider LAB POCT ORDERABLES-MANUAL Eliana l Result Performing Organization Address City/[facility]/ZIP Co de Phone Number [facility] [address] [place] [address], [facility] PCLX [facility] 200 [place] [address] * (ABNORMAL) Cystatin C with Estimated GFR (07/27/2024 11:57 AM CDT) eGFR by Cystatin C 19(L) >60 mL/min/BSA [...] 11:57 AM CDT 07/27/2024 12:24 PM CDT us Yasmine Garduno M.D., Ph.D. LAB BLOOD ADD-ON Eliana l Result Performing Organization Address City/[facility]/ZIP Co de Phone Number [facility] [address] [place] [address], [facility] DTL [facility] [address] [place] [address] * (ABNORMAL) Glucose, POCT (07/27/2024 11:13 AM CDT) Glucose, POCT, B 244(H) 70 - 140 mg/dL 07/27/2024 11:18 AM CDT PCLX Site Capillary 07/27/2024 11:18 AM CDT PCLX Blood 07/27/2024 11:1 3 AM CDT 07/27/2024 11:18 AM CDT us Unknown Provider LAB POCT ORDERABLES-MANUAL Eliana l Result [facility] [address] [place] [address], [facility] PCLX [facility] [address] [place] [address] * Magnesium (07/27/2024 7:42 AM CDT) Magnesium, S 2.1 1.7 - 2.3 mg/dL 07/27/2024 9:54 AM CDT DTL Blood (Blood, Venous) 07/27/2024 7:42 AM CDT 07/27/2024 8:17 AM CDT us Yasmine Garduno M.D., Ph.D. LAB BLOOD ADD-ON Eliana l Result Performing Organization Address City/[facility]/ZIP Co de Phone Number [facility] [address] [place] [address], [facility] DTL [facility] [address] [place] [address] * (ABNORMAL) Basic Metabolic Panel (07/27/2024 7:42 AM CDT) Pathologist [facility] Potassium, S 4.0 3.6 - 5.2 mmol/L [...] 8:16 AM CDT Barbara Jay B.Ch. LAB BLOOD ADD-ON Final Result [address] [address], [facility] [address] [address] * (ABNORMAL) CBC with Differential, Blood (07/27/2024 [...] 7:42 AM CDT 07/27/2024 8:05 AM CDT us Barbara Jay, B.Ch. LAB BLOOD ADD-ON Final Result Performing Organization Address City/[facility]/ZIP Co de Phone Number [facility] [address] DTL [facility] 200 [place] [address] DHPM [facility] 200 [place] [address] * Glucose, POCT (07/27/2024 7:41 AM CDT) [facility] Glucose, POCT, B 119 70 - 140 mg/dL 07/27/2024 7:49 AM CDT PCLX Site Capillary 07/27/2024 7:49 AM CDT PCLX Last Intake 1-2 hours 07/27/2024 7:49 AM CDT PCLX Blood 07/27/2024 7:41 AM CDT 07/27/2024 7:49 AM CDT us Unknown Provider LAB POCT ORDERABLES-MANUAL Eliana l Result Performing Organization Address City/[facility]/ZIP Co de Phone Number [facility] [address] [place] [address], [facility] PCLX [facility] [address] [place] [address] * (ABNORMAL) Prothrombin Time (PT) (07/27/2024 7:41 [...] BLOOD ADD-ON Final Result Performing Organization Address [facility]/ZIP Co de Phone Number [facility] [address] DTL [facility] 200 [place] [address] * Glucose, POCT (07/27/2024 6:54 AM CDT) Pathologist [facility] Glucose, POCT, B 130 70 - 140 mg/dL 07/27/2024 7:13 AM CDT PCLX Blood 07/27/2024 6:54 AM CDT 07/27/2024 7:13 AM CDT Unknown Provider LAB POCT ORDERABLES-MANUAL Eliana l Result Performing Organization Address City/[facility]/ZIP Co de Phone Number [facility] [address] [place] [address], [facility] PCLX [facility] [address] [place] [address] * ECG 12 Lead (07/27/2024 5:27 AM CDT) Ventricular Rate ECG/Min 66 BPM MUSE [place] Interval 136 ms MUSE QRSD Interval 76 ms MUSE QT Interval 358 ms MUSE QTC Interval 375 ms MUSE P [place] 40 degrees MUSE R [place] 63 degrees MUSE T Wave [place] 122 degrees MUSE 07/27/2024 5:27 AM CDT [...] change was found Reviewed by MARIELA Guerrier us Yasmine Garduno M.D., Ph.D. ECG ORDERABLES Final Result Performing Organization Address City/[facility]/ZIP Co de Phone Number MUSE NA * (ABNORMAL) Glucose, POCT (07/26/2024 9:07 PM CDT) Glucose, POCT, B 145(H) 70 - 140 mg/dL 07/26/2024 9:09 PM CDT PCLX Last Intake 3-4 hours 07/26/2024 9:09 PM CDT PCLX Blood 07/26/2024 9:07 PM CDT 07/26/2024 9:09 PM CDT us Unknown Provider LAB POCT ORDERABLES-MANUAL Eliana l Result [facility] [address] [place] [address], [place] PCLX [facility] [address] [place] [address] * (ABNORMAL) Glucose, POCT (07/26/2024 4:19 PM CDT) Glucose, POCT, B 177(H) 70 - 140 mg/dL 07/26/2024 4:22 PM CDT PCLX Site Capillary 07/26/2024 4:22 PM CDT PCLX Last Intake > 4 hours 07/26/2024 4:22 PM CDT PCLX Blood 07/26/2024 4:19 PM CDT 07/26/2024 4:22 PM CDT us Unknown Provider LAB POCT ORDERABLES-MANUAL Eliana l Result Performing Organization Address [facility]/ZIP Co de Phone Number [facility] [address] PCLX [facility] 200 [place] [address] * (ABNORMAL) Glucose, POCT (07/26/2024 11:06 AM CDT) Glucose, POCT, B 364(H) 70 - 140 mg/dL 07/26/2024 11:08 AM CDT PCLX Last Intake 2-3 hours 07/26/2024 11:08 AM CDT PCLX Blood 07/26/2024 11:0 6 AM CDT 07/26/2024 11:09 AM CDT us Unknown Provider LAB POCT ORDERABLES-MANUAL Eliana l Result Performing Organization Address [facility] de Phone Number [facility] [address] [place], [place] [id number] [place] [address] PCLX [facility] [address] [place] [address] * (ABNORMAL) Troponin T, 5th Generation (07/26/2024 8:27 AM CDT) Troponin T, 5th gen 110(H) <=15 ng/L 07/26/2024 9:08 AM CDT STMA Comment:Consider acute myoca rdial injury Blood (Blood, Venous) 07/26/2024 8:27 AM CDT 07/26/2024 8:32 AM CDT us Neftaly Gomez M.D. LAB BLOOD ADD-ON Final Result Performing Organization Address City/[facility]/ZIP Co de Phone Number [facility] [address] STMA [facility] [address] [place] [address] * Folate (07/26/2024 7:21 AM CDT) [facility] Folate, S 11.6 >=4.0 mcg/L 07/28/2024 8: 00 AM CDT DTL Blood (Blood, Venous) 07/26/2024 7:21 AM CDT 07/26/2024 8:10 AM CDT Yasmine Garduno M.D., Ph.D. LAB BLOOD ADD-ON Eliana l Result Performing Organization Address City/[facility] Co de Phone Number [facility] [address] [place], [place] [id number] [place] [address] [place] [address] * (ABNORMAL) Vitamin B12 Assay (07/26/2024 7:21 AM CDT) [facility] Vitamin B12 Assay, S 1206(H) 180 [...] ADD-ON Eliana l Result Performing Organization Address City/[facility]/ZIP Co de Phone Number [facility] [address] [place] [address], [facility] [address] [place] [address] * Reticulocytes (07/26/2024 7:21 AM CDT) Reticulocytes, B 1.46 0.60 - 2.71 % 07/26/2024 8:09 AM CDT DT Absolute Reticulocyte 62.8 30.4 - 110.9 x10(9)/L 07/26/2024 8:09 AM CDT DT Blood (Blood, Venous) 07/26/2024 7:21 AM CDT 07/26/2024 7:55 AM CDT Yasmine Garduno M.D., Ph.D. LAB BLOOD ADD-ON Eliana l Result [facility] [address] [place] [address], [facility] [address] [place] [address] * (ABNORMAL) Haptoglobin (07/26/2024 7:21 AM CDT) Haptoglobin, S <14(L) 30 - 200 mg/dL 07/29/2024 8:13 AM CDT [facility] Blood (Blood, Venous) 07/26/2024 7:21 AM CDT 07/28/2024 6:34 AM CDT Yasmine Garduno M.D., Ph.D. LAB BLOOD ADD-ON Eliana l Result [facility] [address] [place] [address] [facility] [address] [place] [address] * Fibrinogen (07/26/2024 7:21 AM CDT) Fibrinogen, P 385 200 - 393 mg/dL 07/26/2024 8:23 AM CDT [facility] Blood (Blood, Venous) 07/26/2024 7:21 AM CDT 07/26/2024 7:56 AM CDT Yasmine Garduno M.D., Ph.D. LAB BLOOD ADD-ON Eliana l Result [facility] [address] [facility] 200 [place] [address] * Ferritin (07/26/2024 7:21 AM CDT) Ferritin, S 179 31 - 409 mcg/L 07/26/2024 8:46 AM CDT DTL Blood (Blood, Venous) 07/26/2024 7:21 AM CDT 07/26/2024 8:10 AM CDT Yasmine Garduno M.D., Ph.D. LAB BLOOD ADD-ON Eliana l Result Performing Organization Address City/[facility]/ZIP Co de Phone Number [facility] [address] [facility] 200 [place] [address] * Iron and Total Iron-Binding Capacity (07/26/2024 [...] Ph.D. LAB BLOOD ADD-ON Eliana l Result [facility] [address] [facility] 200 [place] [address] * (ABNORMAL) Morphology Eval (special smear) (07/26/2024 [...] Ph.D. LAB BLOOD ADD-ON Eliana l Result [facility] [address] [place] [address], [facility] [address] [place] [address] * (ABNORMAL) Basic Metabolic Panel (07/26/2024 7:21 AM CDT) Potassium, S 4.1 3.6 - 5.2 mmol/L [...] Gomez M.D. LAB BLOOD ADD-ON Final Result [facility] [address] [place] [address], [facility] [address] [place] [address] * (ABNORMAL) CBC with Differential, Blood (07/26/2024 7:21 AM CDT) Hemoglobin 12.3(L) 13.2 - 16.6 g/dL 07/26/2024 [...] Gomez M.D. LAB BLOOD ADD-ON Final Result [facility] [address] [place] [address], [facility] DTL [facility] [address] [place] [address] [facility] 200 [place] [address] * (ABNORMAL) Prothrombin Time (PT) (07/26/2024 7:21 AM CDT) [facility] Prothrombin Time, P 30.2(H) 9.4 - 12.5 sec 07/26/2024 8:23 AM CDT DTL INR 2.7 0.9 - 1.1 07/26/2024 8:23 AM CDT DTL Comment: ----ADDITIONAL INFORMATION---- Standard intensity warfarin therapeutic range: 2.0 to 3.0 ?? High intensity warfarin therapeutic range: 2.5 to 3.5 Blood (Blood, Venous) 07/26/2024 7:21 AM CDT 07/26/2024 7:54 AM CDT us Neftaly Gomez M.D. LAB BLOOD ADD-ON Final Result Performing Organization Address City/[facility]/ZIP Co de Phone Number [facility] 200 [place] [address], [facility] DTL [facility] 200 [place] [address] * (ABNORMAL) Glucose, POCT (07/26/2024 7:20 AM CDT) Glucose, POCT, B 163(H) 70 - 140 mg/dL 07/26/2024 7:22 AM CDT PCLX Site Capillary 07/26/2024 7:22 AM CDT PCLX Last Intake 2-3 hours 07/26/2024 7:22 AM CDT PCLX Blood 07/26/2024 7:20 AM CDT 07/26/2024 7:22 AM CDT us Unknown Provider LAB POCT ORDERABLES-MANUAL Eliana l Result Performing Organization Address City/[facility]/ZIP Co de Phone Number [facility] 200 [place] [address], [facility] PCLX [facility] 200 [place] [address] * Glucose, POCT (07/25/2024 8:34 PM CDT) Glucose, POCT, B 121 70 - 140 mg/dL 07/25/2024 8:37 PM CDT PCLX Last Intake 2-3 hours 07/25/2024 8:37 PM CDT PCLX Blood 07/25/2024 8:34 PM CDT 07/25/2024 8:37 PM CDT us Unknown Provider LAB POCT ORDERABLES-MANUAL Eliana l Result Performing Organization Address City/[facility]/ZIP Co de Phone Number [facility] 200 [place] [address], [facility] PCLX [facility] 200 [place] [address] * (ABNORMAL) Troponin T, 6h, 5th Gen (07/25/2024 7:26 PM CDT) Troponin T, 6 hr, 5th gen 106(H) <=15 ng/L 07/25/2024 8:07 PM CDT [facility] Comment:Consider acute myoca rdial injury [...] TROPON IN Final Result Performing Organization Address City/[facility]/ZIP Co de Phone Number [facility] 200 [place] [address], [facility] 200 [place] [address] * (ABNORMAL) Glucose, POCT (07/25/2024 4:25 PM CDT) [facility] Glucose, POCT, B 174(H) 70 - 140 mg/dL 07/25/2024 4:30 PM CDT PCLX Site Capillary 07/25/2024 4:30 PM CDT PCLX Blood 07/25/2024 4:25 PM CDT 07/25/2024 4:30 PM CDT us Unknown Provider LAB POCT ORDERABLES-MANUAL Eliana l Result P[facility] 200 [place] [address], [facility] PCLX [facility] 200 [place] [address] * (ABNORMAL) Troponin T, 2 Hour with 6 Hour Reflex, 5th Gen (07/25/2024 3:42 PM CDT) Pathologist [facility] Troponin T, 2 hr, 5th gen 131(H) <=15 ng/L 07/25/2024 4:11 PM CDT [facility] Comment:Consider acute myoca rdial injury 2H Delta % 9 % 07/25/2024 4:11 PM CDT [facility] Comment:6 hour collection pe nding. 2H Delta Interp Not Changing 07/25/2024 4:11 PM CDT [facility] Blood 07/25/2024 3:42 PM CDT 07/25/2024 3:47 PM CDT Barbara Jay, B.ChJarrett LAB BLOOD TROPON IN Final Result [facility] [address] [place] [address], [facility] [address] [place] [address] * (TTE) 2D ECHO DOPPLER COLOR (07/25/2024 [...] CABG x1, PVI, and DAHIANA amputation (19-SEP-2023, [place]). 3. Small left ventricular chamber size. Abnormal [...] CABG x1, PVI, and DAHIANA amputation (19-SEP-2023, [place]). Echocardiogram performed per left ventricular function protocol [...] prosthesis, CABG x1,PVI, and DAHIANA amputation (19-SEP-2023, [place]). 3. Small left ventricular chamber size. Abnormal [...] prosthesis, CABG x1, PVI,and DAHIANA amputation (19-SEP-2023, [place]). Echocardiogram performed per leftventricular function protocol + [...] Ed ited Result - Final * (ABNORMAL) Prothrombin Time (PT) (07/25/2024 2:04 PM CDT) Prothrombin Time, P 31.9(H) 9.4 - 12.5 sec 07/25/2024 2:39 PM CDT [facility] INR 2.9 0.9 - 1.1 07/25/2024 2:39 PM CDT [facility] Comment: ----ADDITIONAL INFORMATION---- Standard intensity warfarin therapeutic range: 2.0 to 3.0 ?? High intensity warfarin therapeutic range: 2.5 to 3.5 Blood (Blood, Venous) 07/25/2024 2:04 PM CDT 07/25/2024 2:20 PM CDT Yasmine Garduno M.D., Ph.D. LAB BLOOD ADD-ON Eliana l Result Performing Organization Address City/[facility]/ZIP Co de Phone Number [facility] [address] [place], [place] [address] [place] [address] 200 [place] [address] * (ABNORMAL) CRP (C-Reactive Protein) (07/25/2024 1:50 PM CDT) Pathologist [facility] C-Reactive Protein (CRP), S 6.1(H) <5.0 mg/L 07/25/2024 3:06 PM CDT DT Blood (Blood, Venous) 07/25/2024 1:50 PM CDT 07/25/2024 2:44 PM CDT Neftaly Gomez M.D. LAB BLOOD ADD-ON Final Result Performing Organization Address [facility]/ZIP Co de Phone Number [facility] [address] [place], [place] [address] [place] [address] 200 [place] [address] * (ABNORMAL) Troponin T, Baseline with 2 Hour/6 Hour Reflex Biomarker Panel (07/25/2024 1:50 PM CDT) [facility] Troponin T, Baseline, 5th gen 120(H) <=15 ng/L 07/25/2024 2:22 PM CDT [facility] Comment:Consider acute myoca rdial injury Blood (Blood, Venous) 07/25/2024 1:50 PM CDT 07/25/2024 2:05 PM CDT Neftaly Gomez M.D. LAB BLOOD TROPONIN Final Result Performing Organization Address City/[facility]/ZIP Co de Phone Number [facility] [address] [place], [place] [address] [place] [address] [address] [place] [address] * Sedimentation Rate (07/25/2024 1:49 PM CDT) [facility] Sedimentation Rate, B 13 3 - 28 mm/h 07/25/2024 4:17 PM CDT DTL Blood (Blood, Venous) 07/25/2024 1:49 PM CDT 07/25/2024 2:36 PM CDT Neftaly Gomez M.D. LAB BLOOD ADD-ON Final Result Performing Organization Address [facility] de Phone Number [facility] [address] [place] [address], [facility] [address] [place] [address] * ECG 12 Lead (07/25/2024 1:34 PM CDT) Pathologist [facility] Ventricular Rate ECG/Min 74 BPM MUSE [place] Interval 144 ms MUSE QRSD Interval 70 ms MUSE QT Interval 340 ms MUSE QTC Interval 377 ms MUSE P [place] 51 degrees MUSE R [place] 64 degrees MUSE T Wave [place] 264 degrees MUSE 07/25/2024 1:34 PM CDT [...] MARIELA Chopra Neftaly Gomez M.D. ECG ORDERABLES Final Result Performing Organization Address [facility] de Phone Number MUSE NA * (ABNORMAL) Basic Metabolic Panel [...] 4:07 AM CDT 07/25/2024 4:35 AM CDT us Fanny Goodwin M.D., M.S. LAB BLOOD ADD-ON Fin al Result [facility] [address] [place] [address], [facility] [address] [place] [address] * (ABNORMAL) Basic Metabolic Panel (07/24/2024 11:51 [...] CDT Fanny Goodwin M.D., M.S. LAB BLOOD ADD-ON Fin al Result [address] [address], [facility] [address] [place] [address] * (ABNORMAL) Troponin T, 6h, 5th Gen [...] CDT Quin Smith P.A.-C., M.S. LAB BLOOD TROPONI N Final Result Performing Organization Address [facility] Co de Phone Number [facility] 200 [place], [place] [address] [place] [address] 200 [place] [address] * (ABNORMAL) Troponin T, 2 Hour with [...] CDT Quin Smith P.A.-C., M.S. LAB BLOOD TROPONI N Final Result Performing Organization Address [facility] Co de Phone Number [facility] 200 [place], [place] [address] [place] [address] * DX Chest AP or PA and [...] the spine. Fanny Goodwin M.D., M.S. IMG DIAGNOSTIC IMAGI NG PROCEDURES Final Result * (ABNORMAL) Prothrombin Time (PT) (07/24/2024 5:20 PM CDT) Prothrombin Time, P 37.0(H) 9.4 - 12.5 sec 07/24/2024 5:37 PM CDT [facility] INR 3.3 0.9 - 1.1 07/24/2024 5:37 PM CDT [facility] Comment: ----ADDITIONAL INFORMATION---- Standard intensity warfarin therapeutic range: 2.0 to 3.0 ?? High intensity warfarin therapeutic range: 2.5 to 3.5 Blood (Blood, Venous) 07/24/2024 5:20 PM CDT 07/24/2024 5:30 PM CDT Fanny Goodwin M.D., M.S. LAB BLOOD ADD-ON Fin al Result [facility] [address] [place] [address], [facility] [address] [place] [address] * (ABNORMAL) Troponin T, Baseline with 2 Hour/6 Hour Reflex Biomarker Panel (07/24/2024 5:20 PM CDT) Troponin T, Baseline, 5th gen 109(H) <=15 ng/L 07/24/2024 5:55 PM CDT [facility] Comment:Consider acute myoca rdial injury Blood (Blood, Venous) 07/24/2024 5:20 PM CDT 07/24/2024 5:30 PM CDT Fanny Goodwin M.D., M.S. LAB BLOOD TROPONIN F inal Result Performing Organization Address City/[facility]/ZIP Co de Phone Number [facility] 200 [place], [place] [address] [place] [address] * (ABNORMAL) NT-Pro B-Type Natriuretic Peptide (BNP) (07/24/2024 5:20 PM CDT) Pathologist [facility] NT-Pro BNP 4826(H) <=540 pg/mL 07/24/2024 5:55 PM CDT [facility] Comment: NT-proBNP values less [...] CDT Fanny Goodwin M.D., M.S. LAB BLOOD ADD-ON Fin al Result [facility] [address] [place] [address], [address] [address] * (ABNORMAL) CBC with Differential, Blood (07/24/2024 [...] 5:20 PM CDT 07/24/2024 5:30 PM CDT us Fanny Goodwin M.D., M.S. LAB BLOOD ADD-ON Fin al Result [facility] [address] [place] [address], [facility] ST[facility] [address] [place] [address] [facility] 200 [place] [address] * (ABNORMAL) Basic Metabolic Panel (07/24/2024 5:20 PM CDT) Potassium, P 4.1 3.6 - 5.2 mmol/L [...] CDT Fanny Goodwin M.D., M.S. LAB BLOOD ADD-ON Fin al Result [facility] 200 [place] [address], [facility] [place] [address] [place] [address] * ECG 12 Lead (07/24/2024 5:08 PM CDT) Ventricular Rate ECG/Min 73 BPM MUSE [place] Interval 136 ms MUSE QRSD Interval 76 ms MUSE QT Interval 414 ms MUSE QTC Interval 456 ms MUSE P [place] 44 degrees MUSE R [place] 50 degrees MUSE T Wave [place] 87 degrees MUSE 07/24/2024 5:08 PM CDT [...] Revised Report Fanny Goodwin M.D., M.S. ECG ORDERABLES Edit ed Result - Final MUSE NA documented in this [...] mL/hr, Administer over 30 Minutes, Once, On 07/26/24 at 1015, For 1 dose, Adults: Doses [...] clearance factors., Indications: Prophylaxis, medicalIndications:Prophylaxis, medical Given 08/01/2024 9:00 AM CDT 1 ta blet Given 07/31/2024 8:40 AM CDT 1 tablet [...] mg (Jantoven) 2.5 mg, oral, Once, On 07/26/24 at 1700, For 1 dose, HAZARDOUS - Handle with care. Swallow whole. Do NOT chew or split tablet. May crush using the GamzeeCrush system. Given 07/26/2024 6:13 PM CDT 2.5 mg documented in this encounter Active and Recently Administered Medications Times are shown in CDT. Scheduled Medication Order 07/30/2024 07/31/2024 08/01/2024 aspirin chewable tablet 81 mg 81 mg, oral, Daily, First dose on Sun07/25/24 at 0900 0804 (Given - Provider: Shameka Tanner R.N.) 0839 (Given - Provider: Kelsie Saez R.N.) 0859 (Given - Provider: Felipe JaquezN.) atorvastatin tablet 80 mg (Lipitor) 80 mg, oral, Daily at bedtime, First dose on Sun07/24/24 at 2117 2124 (Given - Provider: Alexandra Jackson R.N.) 1958 (Given - Provider: Terra Welch R.N., [facility]) colchicine tablet 0.6 mg (Colcrys) 0.6 mg, oral, Daily, First dose (after last modification) on Sun07/27/24 at 0900 0804 (Given - Provider: Shameka Tanner R.N.) 0840 (Given - Provider: Kelsie Saez R.N.) 0859 (Given - Provider: Sally Shafer RJarrettN.) finasteride tablet 5 mg (Proscar) 5 mg, oral, Daily, First dose on Sun07/25/24 at 0900, See tube feeding guidelines for tube feeding administration instructions. 0803 (Given - Provider: Shameka Tanner R.N.) 0840 (Given - Provider: Kelsie Saez R.N.) 0910 (Given - Provider: Felipe JaquezN.) insulin aspart U-100 (Carbohydrate Count) injection 0-20 Units (NovoLOG FlexPen) 0-20 Units, subcutaneous, 3 times daily with meals, First dose on Sun07/30/24 at 0830, Simple or Complex Ratio: Simple, Carb Ratio - Simple (1 unit per __ grams of carbohydrates): 10 0952 (Given - Provider: Shameka Tanner R.N.)1309 (Given - Provider: Kelsei Saez R.N.)1809 (Given - Provider: Alexandra Jackson R.N.) 0841 (Given - Provider: Kelsie Saez R.N.)1245 (Given - Provider: Kelsie Saez R.N.)1821 (Given - Provider: Kelsie Saez R.N.) 0902 (Given - Provider: Felipe aJquezN.)1243 (Given - Provider: Sally Shafer RJarrettN.) insulin aspart U-100 injection 0-13 Units (NovoLOG [...] R.N.)1701 (Not Given - Provider: Alexandra Jackson RSammi - Reason: Order parameters not met) 0613 (Not Given - Provider: [facility] - Reason: Order parameters not met)1244 (Given - Provider: Kelsie Saez R.N.)1731 (Not Given - Provider: Kelsie Saez R.N. - Reason: Order parameters not met - Comment: 110) 0643 (Given - Provider: Terra Welch R.N., [facility])1243 (Given - Provider: Sally Shafer R.N.) insulin [...] - Provider: Ter[facility] Welch R.N., [facility]) insulin NPH injection 10 Units (CANCELED) 10 Units, subcutaneous, 2 times daily with meals, First dose on Sun07/26/24 at 1700 0804 (Given - Provider: Shameka Tanner R.N.) insulin NPH injection 10 Units 10 Units, subcutaneous, Every morning, First dose (after last modification) on Carissa 07/31/24 at 0900 0840 (Given - Provider: Kelsie [...] tablet. 0617 (Given - Provider: Damon Pool, R.N.) 0609 (Given - Provider: Ter[facility] Welch R.N., [facility]) 0643 (Given - Provider: Ter[facility] Welch R.N., [facility]) polyethylene glycol powder packet 17 g (Miralax) [...] refused)1957 (Given - Provider: Terra Welch R.N., [facility]) 0859 (Not Given - Provider: Sally Shafer R.N. - Reason: Patient/family refused) predniSONE tablet 20 mg (Deltasone) 20 mg, oral, Daily, First dose on Sun07/26/24 at 0900 0803 (Given - Provider: Shameka Tanner R.N.) 0840 (Given - Provider: Kelsie Saez R.N.) 0859 (Given - Provider: Sally Shafer R.N.) rOPINIRole tablet 0.5 mg (Requip) 0.5 mg, oral, 3 times daily, First dose on Sun07/24/24 at 2100 0804 (Given - Provider: Shameka Tanner R.N.)1317 (Given - Provider: Kelsie Saez R.N.)2124 (Given - Provider: Alexandra Jackson R.N.) 0840 (Given - Provider: Kelsie Saez R.N.)1248 (Given - Provider: Kelsie Saez R.N.)1958 (Given - Provider: Terra Welch R.N., [facility]) 0859 (Given - Provider: Sally Shafer R.N.)1332 (Given - Provider: Sally Shafer R.N.) sennosides tablet 8.6 mg (Senokot) 8.6 mg, oral, Daily at bedtime, First dose on Sun07/30/24 at 2100 2124 (Given - Provider: Alexandra Jackson R.N.) 1957 (Given - Provider: Terra Welch R.N., [facility]) sodium chloride 0.9 % injection 3 mL [...] - Provider: Terra Welch R.N., [facility] - Reason: Contraindicated) 0903 (Given - Provider: [...] R.N.)1957 (Given - Provider: Terra Welch R.N., [facility]) 0903 (Given - Provider: Sally Shafer R.N.) [...] - Provider: [facility] R.N., [facility]) torsemide tablet 40 mg (Demadex) 40 mg, [...] care, Starting on Carissa 07/24/24 at 1702, Prior to and following infusion [...] documented as of this encounter Care Teams Design Release Engineer Relationship Specialty Start Date End Date Elsewhere, Pcp PCP - General Internal Medicine 07/28/24 documented as of this encounter
--- OUTSIDE RECORDS SUMMARY | 2024-09-02 15:14 | XMS_ITS | Encounter Summary ---
Author Organization [facility] Address [address] [place] [address] Care Team Providers Care Rn Clinical Review Name Role Phone Elsewhere, Pcp Primary Care [...] 2:45 PM CDT Appointment Department of Radiology, [facility], in [place], [place] [address] [place] [phone] Deven Clement M.D., M.S. [address] [place] [phone] 09/08/2024 7:15 AM CDT Clinical Communication Virtual Review in [place], [place] 200 [place] [address] 09/16/2024 1:00 PM WAREHOUSE SHIFT SUPERVISOR Appointment Department of Radiology, [facility] in [place], [place] [address] [place] [phone] Deven Clement M.D., M.S. [address] [place] [phone] 09/16/2024 1:20 PM WAREHOUSE SHIFT SUPERVISOR Appointment Department of Laboratory Medicine and Pathology, [facility] in [place], [place] [address] [place] [phone] Deven Clement M.D., M.S. [address] [place] [phone] 09/16/2024 1:40 PM WAREHOUSE SHIFT SUPERVISOR Ancillary Procedure Department of Cardiovascular Medicine in [place], [place] [address] [place] [phone] Deven Clement M.D., M.S. [address] [place] [phone] 09/16/2024 4:00 PM WAREHOUSE SHIFT SUPERVISOR Comprehensive Visit Department of Cardiovascular Medicine in [place], [place] [address] [place] [phone] Keagan Tellez M.D. [address] [place] [phone] documented as of this encounter Procedures Procedure [...] as of this encounter Care Teams Rn Clinical Review Relationship Specialty Start Date End Date Elsewhere, Pcp PCP - General Internal Medicine 07/28/24 documented as of this encounter
--- OUTSIDE RECORDS SUMMARY | 2024-09-02 15:14 | XMS_ITS | Encounter Summary ---
Author Organization [facility] Address [address] [place] [address] Care Team Providers Care Commercial Announcer Name Role Phone Kylah Crum M.D. Primary Care Provider [phone] Reason for Visit * Appointment Request (Routine) - Closed Specialty Diagnoses / Procedures Referred By Sebas t Referred To Contact Nephrology and Hypertension Referral ID Status Reason Start Date Expiration Date Visits Re quested Visits Authorized [id number] Closed 04/25/2024 04/25/2025 1 1 Encounter Details Date Type Department Care Team (Latest Contact Info) Description 06/11/2024 1:30 PM CDT External Outreach Division of Nephrology and Hypertension in [place], [place] [address] [place] [address] Atif Nance Jr., D.O. [address] [place] [address] Hypertensive Heart And Chronic Kidney Disease Without [...] your living situation today? I have a [facility] to live 08/29/2023 Sex and [...] this encounter Progress Notes * Atif Nance Jr., D.Aliyah. - 06/11/2024 1:30 PM CDT Referring Provider: Kylah Crum M.D. SUBJECTIVE REASON FOR VISIT [place] [facility] Follow-up regards CKD [...] in Nephrology in 3 months here in [place] 6. Towards the above goals, we will [...] having his sugars monitored measured here in [place] and I will be available for further [...] CDT Appointment Department of Radiology, [facility], in [place], [place] [address] [place] [phone] Deven Clement M.D., M.S. [address] [place] [phone] 09/08/2024 7:15 AM CDT Clinical Communication Virtual Review in [place], [place] 200 [place] [address] 09/16/2024 1:00 PM FOOD PRODUCTS TESTER Appointment Department of Radiology, [facility], in [place], [place] [address] [place] [phone] Deven Clement M.D., M.S. [address] [place] [phone] 09/16/2024 1:20 PM FOOD PRODUCTS TESTER Appointment Department of Laboratory Medicine and Pathology, [facility] in [place], [place] [address] [place] [phone] Deven Clement M.D., M.S. [address] [place] [phone] 09/16/2024 1:40 PM FOOD PRODUCTS TESTER Ancillary Procedure Department of Cardiovascular Medicine in [place], [place] [address] [place] [phone] Deven Clement M.D., M.S. [address] [place] [phone] 09/16/2024 4:00 PM FOOD PRODUCTS TESTER Comprehensive Visit Department of Cardiovascular Medicine in [place], [place] [address] [place] [phone] Keagan Tellez M.D. [address] [place] [phone] documented as of this encounter Visit Diagnoses [...] as of this encounter Care Teams Commercial Announcer Relationship Specialty Start Date End Date Kylah Crum M.D. NPVeda: [phone] [address] [place], [place] [address] [phone] PCP - General Family Medicine 09/28/23 07/24/24 documented as of this encounter
--- OUTSIDE RECORDS SUMMARY | 2024-09-02 15:14 | XMS_ITS | Encounter Summary ---
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 [address] [place] [address] Phone: tel: fax: [facility] Referral ID Status Reason Start Date Expiration Date V isits Requested Visits Authorized [id number] Authorized 08/29/2024 08/29/2025 1 1 * Cardiovascular-Diagnostic (Routine) - Authorized [...] Transthoracic (TTE) Deven Clement M.D., M.S. [address] [place] [address] Phone: tel: fax: [facility] Referral ID Status Reason Start Date Expiration Date V isits Requested Visits Authorized [id number] Authorized 07/30/2024 07/30/2025 1 1 * Outpatient [...] 12 Lead Deven Clement M.D., M.S. [address] [place] [phone] Phone: tel: fax: [facility] Referral ID Status Reason Start Date Expiration Date V isits Requested Visits Authorized [id number] Authorized 07/30/2024 07/30/2025 1 1 * Outpatient [...] 2 Views Deven Clement M.D., M.S. [address] [place] [phone] Phone: tel: fax: [facility] Referral ID Status Reason Start Date Expiration Date V isits Requested Visits Authorized [id number] Authorized 07/30/2024 07/30/2025 1 1 * Outpatient [...] Disease (HCC) Deven Clement M.D., M.S. [address] [place] [phone] Phone: tel: fax: [facility] Referral ID Status Reason Start Date Expiration Date V isits Requested Visits Authorized [id number] Authorized 07/30/2024 01/29/2026 1 1 Encounter Details Date Type Department Care Team (Late st Contact Info) Description 07/30/2024 Clinical Communication [facility] [address] [place] [phone] Barbara Valencia M.B., B.Ch. [address] [place] [phone] Social History Tobacco Use Types Packs/Day Years Used Date Smoking Tobacco: Never Smokeless Tobacco: Never Comments:Smoked recreational ly over 40 years ago - a few cigarettes once in a while. Alcohol Use Standard Drinks/Week Comments Never 0 (1 standard drink = 0.6 oz pur e alcohol) [facility] Utilities Answer Date Recorded In the past 12 months has [facility] [email or web address], gas, oil, or water [employer] threatened to shut off services in [...] [facility], in [place], [place] [address] [place] [phone] Deven Clement M.D., M.S. [address] [place] [phone] 09/08/2024 7:15 AM CDT Clinical Communication Virtual Review in [place], [place] [address] [place] [address] 09/16/2024 1:00 PM WELLNESS NURSE Appointment Department of Radiology, [facility], in [place], [place] [address] [place] [phone] Deven Clement M.D., M.S. [address] [place] [phone] 09/16/2024 1:20 PM WELLNESS NURSE Appointment Department of Laboratory Medicine and Pathology, [facility] in [place], [place] [address] [place] [phone] Deven Clement M.D., M.S. [address] [place] [phone] 09/16/2024 1:40 PM WELLNESS NURSE Ancillary Procedure Department of Cardiovascular Medicine in [place], [place] [address] [place] [phone] Deven Clement M.D., M.S. [address] [place] [phone] 09/16/2024 4:00 PM WELLNESS NURSE Comprehensive Visit Department of Cardiovascular Medicine in [place], [place] [address] [place] [phone] Keagan Tellez M.D. [address] [place] [phone] Scheduled Orders Name Type Priority Associated Diagnoses [...] (HCC) Expected: 08/29/2024, Expires: 10/29/2025 Thyroid Function [place] [facility] Routine Hypertensive Heart And Chronic Kidney [...] Aortic Valve Acquired Pericardial Disease (HCC) Expected: 09/16/2024, Expires: 10/29/2025 Scheduled Referrals Name Type Priority [...] documented as of this encounter Care Teams Production Technician Relationship Specialty Start Date End Date Elsewhere, Pcp PCP - General Internal Medicine 07/28/24 documented as of this encounter
--- OUTSIDE RECORDS SUMMARY | 2024-09-02 15:14 | XMS_ITS | Encounter Summary ---
Author Organization [facility] Address [address] [place] [address] Care Team Providers Care Coin Rolling Machine Operator Name Role Phone Elsewhere, Pcp [...] 2:45 PM CDT Appointment Department of Radiology, [facility], in [place], [place] [address] [place] [address] Deven Clement M.D., M.S. [address] [place] [phone] 09/08/2024 7:15 AM CDT Clinical Communication Virtual Review in [place], [place] [address] [place] [address] 09/16/2024 1:00 PM PUMPER HELPER Appointment Department of Radiology, [facility] in [place], [place] [address] [place] [phone] Deven Clement M.D., M.S. [address] [place] [phone] 09/16/2024 1:20 PM PUMPER HELPER Appointment Department of Laboratory Medicine and Pathology, [facility] in [place], [place] [address] [place] [phone] Deven Clement M.D., M.S. [address] [place] [phone] 09/16/2024 1:40 PM PUMPER HELPER Ancillary Procedure Department of Cardiovascular Medicine in [place], [place] [address] [place] [phone] Deven Clement M.D., M.S. [address] [place] [phone] 09/16/2024 4:00 PM PUMPER HELPER Comprehensive Visit Department of Cardiovascular Medicine in [place], [place] [address] [place] [phone] Keagan Tellez M.D. [address] [place] [phone] documented as of this encounter Procedures Procedure [...] documented as of this encounter Care Teams Coin Rolling Machine Operator Relationship Specialty Start Date End Date Elsewhere, Pcp PCP - General Internal Medicine 07/28/24 documented as of this encounter
--- OUTSIDE RECORDS SUMMARY | 2024-09-02 15:15 | XMS_ITS | Clinical Summary ---
Author Organization [facility] Address [place], [place] [address] Care Team Providers Care Graphic Design Manager Name Role Phone Kylah Crum [place] [facility] Primary Care Provider Medications No known medications Social History Tobacco Use Types Packs/Day Years Used Date Smoking Tobacco: Never Assessed Sex and Gender Information Value Date Recorded Sex Assigned at Not on file Gender Identity Not on file Sexual Orientation Not on file Obstetrics History Last Filed Vital Signs Vital Sign Reading Time Taken Comments Blood Pressure 107/69 10/03/2023 4:23 PM STORAGE CENTER MANAGER Pulse 84 10/03/2023 4:23 PM STORAGE CENTER MANAGER Temperature 36.8 ??C (98.2 ??F) 10/03/2023 3:16 PM CS T Respiratory Rate 20 10/03/2023 3:16 PM STORAGE CENTER MANAGER Oxygen Saturation 98% 10/03/2023 4:23 PM STORAGE CENTER MANAGER Inhaled Oxygen Concentration - - Weight 90.7 kg (200 lb) 10/03/2023 3:08 PM STORAGE CENTER MANAGER Height 172.7 cm (5' 8) 10/03/2023 3:08 PM STORAGE CENTER MANAGER Body Mass Index 30.41 10/03/2023 3:08 PM STORAGE CENTER MANAGER Plan of Treatment Health Maintenance Due Date [...] Influenza for age 65+ 07/13/2024 Care Teams Graphic Design Manager Relationship Specialty Start Date End Date Kylah Crum MBBS [address] [place] [phone] PCP - General Family Practice 10/03/23
--- OUTSIDE RECORDS SUMMARY | 2024-09-02 15:15 | XMS_ITS | Encounter Summary ---
Author Organization [facility] Address [address] [place] [address] Care Team Providers Care Consultant Intern Name Role Phone Kylah Crum M.D. Primary Care Provider Reason for Visit * Reason Onset Date Comments bilateral leg swelling 04/17/2024 OS [facility] 04/17/2024 Scanned in Encounter Details Date Type Department Care Team (Latest Contact Info) Description 04/17/2024 Clinical Communication Department of Cardiovascular Medicine in [place], [place] [address] [place] [address] Gudelia Soto M.D. [address] [place] [phone] bilateral leg swelling; OS Labs (Scanned in) [...] Phone call returned to ANGIE Henriquez at [facility]. She had left for the day so the lab coordinator left a message with our phone number. * Telephone Encounter - Lester Phelps RJarrettN. - 04/17/2024 3:02 PM CDT Phone call returned to ANGIE Henriquez at the [facility]. Mr. Harris was in clinic for an [...] Harris to see another provider at the [facility] to be assessed. Addendum: Phone call placed [...] 2:45 PM CDT Appointment Department of Radiology, [facility], in [place], [place] [address] [place] [phone] [place], Deven Guerrero M.D., M.S. [address] [place] [phone] 09/08/2024 7:15 AM CDT Clinical Communication Virtual Review in [place], [place] [address] [place] [phone] 09/16/2024 1:00 PM MANAGER MEDICAL AFFAIRS Appointment Department of Radiology, [facility], in [place], [place] [address] [place] [address] Deven Clement M.D., M.S. [address] [place] [phone] 09/16/2024 1:20 PM MANAGER MEDICAL AFFAIRS Appointment Department of Laboratory Medicine and Pathology, [facility] in [place], [place] [address] [place] [phone] Deven Clement M.D., M.S. [address] [place] [phone] 09/16/2024 1:40 PM MANAGER MEDICAL AFFAIRS Ancillary Procedure Department of Cardiovascular Medicine in [place], [place] [address] [place] [phone] Deven Clement M.D., M.S. [address] [place] [phone] 09/16/2024 4:00 PM MANAGER MEDICAL AFFAIRS Comprehensive Visit Department of Cardiovascular Medicine in [place], [place] [address] [place] [phone] Keagan Tellez M.D. [address] [place] [phone] documented as of this encounter Visit Diagnoses Not on filedocumented in this encounter Additional Health Concerns Assessment Noted Time PHQ-9 Depression Total Score: 1 09/10/20 23 2:06 PM CDT documented as of this encounter Care Teams Consultant Intern Relationship Specialty Start Date End Date Kylah Crum M.D. [address] [place] [phone] PCP - General Family Medicine 09/28/23 07/24/24 documented as of this encounter
[2024-09-02 15:42] LABS: Carbon Dioxide* 36 mmol/L (20-32); Chloride* 95 mmol/L (96-114); Glucose* 76 mg/dL (60-115); NT Pro B Type NatriureticPept* 8180 pg/mL; Prothrombin Time 26.1 Seconds
[2024-09-02 15:43] LABS: Anion Gap 7 mEq/L (7-15); Blood Urea Nitrogen* 89 mg/dL (7-30); Calcium* 9.2 mg/dL (8.4-10.6); Creatinine* 3.3 mg/dL (0.5-1.5); Est. Creatinine Clearance* 19.58; Estimated Glomerular Filt Rate 19 ml/min; Potassium* 3.9 mmol/L (3.6-5.1); Sodium* 138 mmol/L (135-149)
[2024-09-02 15:44] LABS: Troponin I* 0.07 ng/mL (0.01-0.04)
[2024-09-02 16:42] LABS: Lactate Sepsis w/Reflex* 1.5 mmol/L (0.5-1.9)
[2024-09-02] MEDS: CLINDAMYCIN 600 MG/50 ML-D5W 600 MG/50 ML PIGGYBACK 100 MG IVPB (16:45)
[2024-09-02 17:08] LABS: PCR FLU A Negative PCR FLU A (Negative); PCR FLU B Negative PCR FLU B (Negative); PCR RSV Negative PCR RSV (Negative); SARS PCR* Negative SARS-CoV-2 (Negative)
--- NOTE | 2024-09-02 17:09 | ED.NURSE ---
BP readings 80's/60's. MD notified and at bedside. 500 NS bolus ordered.
--- NOTE | 2024-09-02 17:16 | CRLHL7_ITS ---
For Patients: As a result of the Cures Act, medical imaging exams and procedure reports are released immediately into your electronic medical record. You may view this report before your referring provider. If you have questions, please contact your health care provider. INDICATION: Hypotension, CHF. TECHNIQUE: Chest 1 views. COMPARISON: June 04, 2024. FINDINGS: Cardiovascular and mediastinum: Cardiomegaly with vascular congestion. Loop recorder. Lungs and pleural spaces: Trace left pleural effusion with basilar consolidation. No sign of infiltrate or mass. No pneumothorax. Bones and soft tissues: Sternotomy wires. No significant findings. IMPRESSION: No acute or significant findings. Dictated by Palomo Choi MD @ 09/02/2024 6:09:57 PM (Electronically Signed)
[2024-09-02 17:19] LABS: C Reactive Protein* 2.9 mg/dL (0.5-1.0)
[2024-09-02] MEDS: 0.9 % SODIUM CHLORIDE 500 ML 500 ML 1000 ML IV (17:22)
[2024-09-02] MEDS: ACETAMINOPHEN 500 MG TABLET 1000 MG PO (19:19)
--- NOTE | 2024-09-02 19:46 | ED.NURSE ---
Patient transferred via [facility]. Family present at time of transfer and belongings sent with family. Medication infusing per mar at time of transfer.
== END 2024-09-02 19:48 | disposition short-term general hospital (02) ==
PROVIDERS: Emergency Provider Student in an Organized Health Care Education/Training Program; PCP Internal Medicine
DX: R57.9 Shock, unspecified (principal); R60.0 Localized edema; M79.605 Pain in left leg; M79.604 Pain in right leg; Z95.2 Presence of prosthetic heart valve; Z95.1 Presence of aortocoronary bypass graft; R23.8 Other skin changes; D69.6 Thrombocytopenia, unspecified; L03.115 Cellulitis of right lower limb; I50.9 Heart failure, unspecified
CPT/HCPCS: 36415; 71045; 80048; 81001; 83605; 83880; 84484; 85025; 85610; 86140; 87040; 87631; 93005; 93970; 96365; 99285; 99291; A9270; J0736; J7030

== ENCOUNTER 2024-09-02 19:38 | Outpatient (CLI) | payer MEDICARE, SELFPAY ==
--- OUTSIDE RECORDS SUMMARY | 2024-09-06 15:51 | XMS_ITS | Clinical Summary ---
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 For routine questions regarding patient records, call [phone] during business hours, M-F 8:00 AM - 5:00 PM Central Time. Record requests for emergency care only can be directed to [phone] at any time.[facility] Allergies No known active allergies Medications cholecalcifer ol 10 mcg (400 Unit) tablet Take 10 mcg by mouth daily. Suspended cyanocobalami n 2,000 mcg tablet Take 2,000 mcg by mouth daily. Suspended acetaminophen (TYLENOL) 500 mg tablet Take 1,000 mg by mouth every 6 (six) hours as needed for pain. 2023 Discontinued(T herapy completed) aspirin 81 mg chewable tablet Chew 1 tablet (81 mg total) daily. 2023 Suspended atorvastatin (LIPITOR) 80 mg tablet Take 1 tablet (80 mg total) by mouth at bedtime. 2023 Suspended finasteride (PROSCAR) 5 mg tablet Take 1 tablet (5 mg total) by mouth daily. Suspended rOPINIRole (REQUIP) 0.5 mg tablet Take 1 tablet (0.5 mg total) by mouth 3 (three) times a day. Suspended tamsulosin (FLOMAX) 0.4 mg 24 hr capsule Take 1 capsule (0.4 mg total) by mouth at bedtime. Suspended metoprolol succinate (TOPROL-XL) 50 mg 24 hr tablet Take 1 tablet by mouth daily. Suspended iron,carbonyl -vitamin C (VITRON-C) 65 mg iron- [address] tablet Take 1 tablet (65 mg of iron total) by mouth daily. Do not crush or chew. 90 tablet 3 2023 Discontinued(T herapy completed) lancets 2 each daily. 200 each 08/01/20 2:47 PM CDT 024 2024 Suspended alcohol swabs pads, medicated Use as needed for diabetes control 1500 each 3 08/01/20 2:47 PM CDT Suspended blood sugar diagnostic strips 2 test daily. 200 test 08/01/20 2:47 PM CDT 024 2024 Suspended blood-glucose meter misc Test as directed for diabetes control. 1 each 08/01/20 2:47 PM CDT Suspended blood glucose control high,low (Accu-Chek Guide L1-L2 Ctrl Nimo) solution Glucose control solution provides an easy way to ensure accurate blood glucose testing. 1 each 08/01/20 2:47 PM CDT 024 Suspended pen needle, diabetic (BD Ultra-Fine Short Pen Needle) 31 gauge x 5/16 needle 2 Injection daily. 100 each 08/01/20 2:47 PM CDT 024 2024 Suspended colchicine (Colcrys) 0.6 mg tablet Take 1 tablet (0.6 mg total) by mouth daily. 30 tablet 2023 pantoprazole (Protonix) 40 mg EC tablet Take 1 tablet (40 mg total) by mouth daily before morning meal. 30 tablet 08/01/20 2:47 PM CDT 024 2023 warfarin (Jantoven) 1 mg tabletIndicat ions:Prosthes is Aortic Valve Take 2 mg daily until your INR check with Anticoagulation Clinic 7 tablet 08/01/20 2:47 PM CDT 024 Suspended predniSONE (Deltasone) 5 mg tablet Take 4 tablets (20 mg) by mouth daily for 28 days, THEN 3.5 tablets (17.5 mg) daily for 14 days, THEN 3 tablets (15 mg) daily for 14 days until pericardial appt. Further dose to be decided at appt. DO NOT STOP TAKING ABRUPTLY 1020 tablet 08/01/20 24 2:47 PM CDT 2023 Suspended torsemide (Demadex) 20 mg tablet Take 1 tablet (20 mg total) by mouth daily. 30 tablet 2023 Discontinued(S top Taking at Discharge) sulfamethoxaz ole-trimethop rim (Bactrim) 400-80 mg per tabletIndicat ions:Prophyla xis, medical Take 1 tablet by mouth daily for 28 doses Indications: Prophylaxis, medical. 28 tablet 08/01/20 2:47 PM CDT 2023 Discontinued insulin NPH (NovoLIN N FlexPen) 100 unit/mL (3 mL) pen Inject 25 units subcutaneously in the morning and 10 units in the evening. Call in for dose adjustment Suspended Additional Information Patient taking differently: Inject 30 units subcutaneously in the morning and 20 units in the evening. Call in for dose adjustment, Reported on 09/03/2024 cefdinir (Omnicef) 300 mg capsule Take 300 mg by mouth daily. 2023 Discontinued(S top Taking at Discharge) acetaminophen (TylenoL) 500 mg tablet Take 2 tablets (1,000 mg total) by mouth every 6 (six) hours as needed for pain. Suspended cefadroxil (Duricef) 500 mg capsuleIndica tions:Skin and soft tissue infection Take 1 capsule (500 mg total) by mouth daily for 7 days Indications: Skin and soft tissue infection. 7 capsule 2023 Suspended sulfamethoxaz ole-trimethop rim (Bactrim) 400-80 mg per tabletIndicat ions:Prophyla xis, medical Take 1 tablet by mouth daily for 28 doses Indications: Prophylaxis, medical. 28 tablet 2023 Discontinued(S top Taking at Discharge) torsemide (Demadex) 20 mg tablet Take 3 tablets (60 mg total) by mouth 2 (two) times a day. 120 tablet 2 024 Suspended pantoprazole (Protonix) 40 mg EC tablet Take 40 mg by mouth daily before morning meal. Suspended colchicine (Colcrys) 0.6 mg tablet Take 0.6 mg by mouth daily. 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 Edema Leg 07/25/2024 Hyperparathyroidism Renal Secondary 06/11/2024 Feed Miller (Current) Anticoagulant Treatment 09/13 Bypass Coronary Artery Graft Status Post 023 Cardiac Surgery Status Post 09/24/2023 Effusion Pleural 09/24/2023 Device Cardiac Status Post 09/23/2023 Overview (09/23/2023): Previously placed loop recorder Therapy Feed Miller Antiplatelet 09/22/2023 Coronary Arterial Bypass Graft Status [...] Problem Noted Date Diagnosed Date Resolved Date Severe Sepsis With Septic Shock 09/02/2024 09/04/2024 Sepsis 09/02/2024 09/04/2024 Monitoring For Therapeutic Drug Therapy 10/01/2023 11/22/2023 [...] Encounters Date Type Department Care Team Description 09/04/2024 9:35 AM CDT Ancillary Procedure Department of Physical Medicine and Rehab Arrived 09/04/2024 9:30 AM CDT Ancillary Procedure Department of Physical Medicine and Rehab Arrived 09/03/2024 9:55 AM CDT Ancillary Procedure Department of Nursing Arrived 09/03/2024 9:50 AM CDT Ancillary Procedure Department of Nursing Arrived 09/02/2024 9:45 PM CDT Ancillary Procedure Department of Dermatology 09/02/2024 9:40 PM CDT Ancillary Procedure Department of Dermatology 09/02/2024 9:15 PM CDT - Present Hospital Encounter [facility], [facility], Fourth Floor [address] [place] [phone] Ranulfo Qureshi M.D. Eze Shah M.D. Kolar, Gururaj J, M.D. Pennington, Kelly M, M.D. Unspecified Open Wound Right Lower Leg Sequela [S81.801S] (Primary Dx); Severe Sepsis With Septic Shock (HCC) [R65.21]; Unspecified Open Wound Left Lower Leg Sequela [S81.802S]; Decline Functional Status [R53.81]; Cellulitis [L03.90] 09/02/2024 Intake [facility] 09/02/2024 Clinical Communication Department of Cardiovascular Medicine in [place], [place] [address] [place] [address] [phone] Mando Fang M.D., Ph.D. Post Hospital Follow-up 09/02/2024 Clinical Communication Department of Cardiovascular Medicine in [place], [place] [address] [place] [phone] Eneida Loya R.N. 08/31/2024 9:50 AM CDT Ancillary Procedure Department of Nursing 08/31/2024 9:45 AM CDT Ancillary Procedure Department of Nursing 08/28/2024 8:35 AM CDT Ancillary Procedure Department of Nursing 08/28/2024 8:30 AM CDT Ancillary Procedure Department of Nursing 08/27/2024 2:10 PM CDT Ancillary Procedure Department of Emergency Medicine 08/27/2024 1:37 PM CDT - 08/31/2024 3:15 PM CDT Hospital Encounter [facility], [facility], Fifth Floor [address] [place] [phone] Obdulio Salinas P.A.-C. Mundo Camacho M.D. Bois, John P, M.D. Mando Fang M.D., Ph.D. Edema Leg (Primary Dx); Decline Functional Status [R53.81] Discharge Disposition: Home or Self Care 08/06/2024 Clinical Communication Division of Endocrinology in [address] [phone] Emerson Goddard R.N. Communication 08/05/2024 Clinical Communication Division of Endocrinology in [address] [phone] Lola Payan R.N. Dose Adjustment 08/04/2024 Clinical Communication Division of Endocrinology in [address] [phone] Emerson Goddard R.N. Communication 07/30/2024 9:50 AM CDT Ancillary Procedure Department of Nursing 07/30/2024 9:45 AM CDT Ancillary Procedure Department of Nursing 07/30/2024 Clinical Communication [facility] [address] [place] [phone] Barbara Valencia M.B., B.Ch. 07/28/2024 10:40 AM CDT Ancillary Procedure Department of Nursing 07/25/2024 1:35 PM CDT Ancillary Procedure Department of Nursing 07/25/2024 1:00 PM CDT Ancillary Procedure Department of Nursing 07/24/2024 4:49 PM CDT - 08/01/2024 2:08 PM CDT Hospital Encounter [facility], [facility], Fourth Floor [address] [place] [phone] Fanny Goodwin M.D., M.S. Haily Campbell APRN, C.N.P., D.N.P. Josee Devlin P.A.-C., M.S. Yasmine Garduno M.D., Ph.D. Deven Clement M.D., M.S. Shameka Feldman M.D. Fanny Zelaya M.D. Edema Leg (Primary Dx); Shortness Of Breath; Effusion Pleural; Diabetes Mellitus Type 2 (HCC); Prosthesis Aortic Valve Discharge Disposition: Home or Self Care 06/11/2024 1:30 PM CDT External Outreach Division of Nephrology and Hypertension in [place], [place] [address] [place] [phone] Atif Nance Jr., D.O. Hypertensive Heart And [...] drink = 0.6 oz pur e alcohol) [facility] Utilities Answer Date Recorded In the past 12 months has e [employer], gas, oil, or water [employer] Voc[employer] threatened to shut off services in your home? Yes 09/02/2024 Humiliation, Afraid, Rape, and Kick questionnair e Answer Date Recorded Within the last year, have y ou been afraid of your partner or ex-partner? No 09/02/2024 Within the last year, have y ou been humiliated or emotionally abused in other ways by your partner or ex-partner? No Within the last year, have y ou been kicked, hit, slapped, or otherwise physically hurt by your partner or ex-partner? No 09/02/2024 Within the last year, have y ou been raped or forced to have any kind of sexual activity by your partner or ex-partner? No 09/02/2024 Overall Financial Resource Strain (CARDIA) Answe r [...] the money to buy more. Never true 09/02/20 24 Within the past 12 months, t he food you bought just didn't last and you didn't have money to get more. Never true 09/02/2024 PRAPARE - Transportation Answer Date Re corded In the past 12 months, has l ack of transportation kept you from medical appointments or from getting medications? No 08/13 In the past 12 months, has l ack of transportation kept you from meetings, work, or from getting things needed for daily living? No 09/02/2024 Depression Answer Date Recor ded PHQ-9 Total [...] a [facility] 09/02/2024 Sex and Gender Information Value Date Recorded Sex Assigned at Male 08/29/2023 11:06 AM CDT Legal Sex Male 9:17 AM CDT Gender Identity Male 08/29/2023 11:06 AM CDT Sexual Orientation Straight 08/29/2023 11 :06 AM CDT Last Filed Vital Signs Vital Sign Reading Time Taken Comments Blood Pressure 140/73 09/06/2024 3:42 PM CDT Pulse 86 09/06/2024 3:42 PM CDT Temperature 36.4 ??C (97.5 ??F) 09/06/2024 3:42 PM CD T Respiratory Rate 16 09/06/2024 3:42 PM CDT Oxygen Saturation 98% 09/06/2024 3:42 PM CDT Inhaled Oxygen Concentration - - Weight 83.6 kg (184 lb 4.9 oz) 09/06/2024 7:52 A M CDT Height 174 cm (5' 8.5) 09/03/2024 2:09 PM CDT Body Mass Index 27.61 09/03/2024 2:09 PM CDT Plan of Treatment Upcoming Encounters Date Type Department Care Team (Latest Contact Info) Description 09/08/2024 7:15 AM CDT Clinical Communication Virtual Review in [place], [place] [address] [place] [phone] 09/16/2024 1:00 PM CADD INSTRUCTOR Appointment Department of Radiology, [facility], in [place], [place] [address] [place] [phone] Deven Clement M.D., M.S. [address] [place] [phone] 09/16/2024 1:20 PM CADD INSTRUCTOR Appointment Department of Laboratory Medicine and Pathology, [facility], in [place], [place] [address] [place] [phone] Deven Clement M.D., M.S. [address] [place] [phone] 09/16/2024 1:40 PM CADD INSTRUCTOR Ancillary Procedure Department of Cardiovascular Medicine in [place], [place] [address] [place] [phone] Deven Clement M.D., M.S. [address] [place] [phone] 09/16/2024 4:00 PM CADD INSTRUCTOR Comprehensive Visit Department of Cardiovascular Medicine in [place], [place] [address] [place] [phone] Keagan Tellez M.D. [address] [place] [phone] Health Maintenance Due Date Last Done Comments [...] Depression Screening (Annual PHQ-2) 11/12/2023 COVID-19 Vaccine ( - 2023-2 5 season) 2024 Influenza Vaccine (#1) 2024 Hemoglobin A1C 01/26/2025 07/29/2024, 08/22/2023 Office Visit for Blood Press ure Check / Re-check 09/02/2025 09/02/2024 Creatinine Level (Kidney Fun ction Test) 09/06/2025 09/06/2024, 09/05/2024, 09/04/2024, Additional history exists Potassium Level 09/06/2025 09/06/2024, 08/13, 09/04/2024, Additional history exists Sodium Level 09/06/2025 09/06/2024, 08/13, 09/04/2024, Additional history exists Lipid (Cholesterol) Screening 12/24/2028 12/24/2023, 08/21/2023 Colonoscopy 11/21/2032 11/21/2022, 11/12 (Performed elsewhere), 11/21/2022 Colorectal Cancer Screening 11/21/2032 Fall Risk Screen (Annual) Completed 08/27/2024 Medical Devices Implanted Type Area Continuous Improvement Manager Device Identifier Shelf Expiration Date Model / Serial / Lot Vlv Aort Cnf [facility] 23 - [id number] - [id number] Implanted:Qty: 1 on 09/19/2023 by Sarah Miller M.D., M.P.H. at [facility] Cardiac Valve Prosthesis N/A: Aortic Valve Artivion (Prev. CryoLife) 2028 ONXACE-2 3 / [id number] / Description:MRI conditional up to 3T, normal mode, per cable wirer. [email or web address] _All.pdf AFK Clp Hrzn Ti 24 Clp Akhil - [id number] Implanted:Qty: 1 on 09/19/2023 by Sarah Miller M.D., M.P.H. at [facility] Hardware e.g. pins/screws/r ods N/A: Chest [employer] [id number] 04/29/2028 [id number] / / [id number] Clp Hrzn Ti 6 Clp Md Akhil - [id number] Implanted:Qty: 1 on 09/19/2023 by Sarah Miller M.D., M.P.H. at [facility] Hardware e.g. pins/screws/r ods N/A: Chest [employer] [id number] / / Clp Hrzn Ti 24 Clp Sm Red - [id number] Implanted:Qty: 1 on 09/19/2023 by Sarah Miller M.D., M.P.H. at [facility] Hardware e.g. pins/screws/r ods N/A: Chest [employer] [id number] / / Clp Hrzn Ti 24 Clp Sm Red - [id number] Implanted:Qty: 1 on 09/19/2023 by Sarah Miller M.D., M.P.H. at [facility] Hardware e.g. pins/screws/r ods N/A: Chest [employer] [id number] / / [place] [facility] Tfln 1x6 - [id number] Implanted:Qty: 1 on 09/19/2023 by Sarah Miller M.D., M.P.H. at [facility] Hardware e.g. pins/screws/r ods N/A: Gridco [id number] / / Medtronic Linq-05/05/2019 Implanted:04/13 by Chet Badillo M.D., Ph.D. (Quantity not on file) Implantable Loop Recorder Chest Medtronic [id number] / [id number] / Description:MR Conditional 1 .5T and 3T - First level operating mode. - Jayro Abernathy 12/25/2023 Procedures * The patient is currently admitted. The information in this section might not be complete until the patient is discharged. Procedure Name Priority Date/Time Associated Diagnosis Comments GLUCOSE POCT, B Routine 09/06/2024 12:17 PM CDT GLUCOSE POCT, B Routine 09/06/2024 9:23 AM CDT GLUCOSE POCT, B Routine 09/06/2024 7:51 AM CDT SPSMA RESULT Routine 09/06/2024 7:20 AM CDT HEPARIN LEVEL ANTI-XA ASSAY, P Routine 09/06/2024 7:20 AM CDT PHOSPHORUS (INORGANIC), S Routine 09/06/2024 7:20 AM CDT MAGNESIUM, S Routine 09/06/2024 7:20 AM CDT BASIC METABOLIC PANEL, S/P Routine 09/06/2024 7:20 AM CDT CBC WITHOUT DIFFERENTIAL, B Routine 09/06/2024 7:20 AM CDT PROTHROMBIN TIME (PT), P Routine 09/06/2024 7:20 AM CDT HEPARIN LEVEL ANTI-XA ASSAY, P Timed 09/06/2024 12:59 AM CDT GLUCOSE POCT, B Routine 09/05/2024 9:14 PM CDT GLUCOSE POCT, B Routine 09/05/2024 5:40 PM CDT HEPARIN LEVEL ANTI-XA ASSAY, P STAT 09/05/2024 5:39 PM CDT GLUCOSE POCT, B Routine 09/05/2024 12:45 PM CDT ACTIVATED PARTIAL THROMBOPLASTIN TIME (APTT), P STAT 09/05/2024 10:01 AM CDT GLUCOSE POCT, B Routine 09/05/2024 7:54 AM CDT PHOSPHORUS (INORGANIC), S Routine 09/05/2024 7:32 AM CDT ALBUMIN, S/P Routine 09/05/2024 7:32 AM CDT BASIC METABOLIC PANEL, S/P Routine 09/05/2024 7:32 AM CDT CBC WITHOUT DIFFERENTIAL, B Routine 09/05/2024 7:32 AM CDT PROTHROMBIN TIME (PT), P Routine 09/05/2024 7:32 AM CDT GLUCOSE POCT, B Routine 09/04/2024 9:17 PM CDT GLUCOSE POCT, B Routine 09/04/2024 5:35 PM CDT GLUCOSE POCT, B Routine 09/04/2024 5:06 PM CDT GLUCOSE POCT, B Routine 09/04/2024 12:11 PM CDT PHYSICAL MEDICINE AND REHAB IMAGE EXAM Routine 09/04/2024 9:30 AM CDT PHYSICAL MEDICINE AND REHAB IMAGE EXAM Routine 09/04/2024 9:30 AM CDT GLUCOSE POCT, B Routine 09/04/2024 8:36 AM CDT GLUCOSE POCT, B Routine 09/04/2024 8:20 AM CDT GLUCOSE POCT, B Routine 09/04/2024 7:40 AM CDT GLUCOSE POCT, B Routine 09/04/2024 7:24 AM CDT BASIC METABOLIC PANEL, S/P STAT 09/04/2024 6:13 AM CDT CBC WITHOUT DIFFERENTIAL, B STAT 09/04/2024 6:13 AM CDT PROTHROMBIN TIME (PT), P STAT 09/04/2024 6:13 AM CDT GLUCOSE POCT, B Routine 09/04/2024 5:02 AM CDT CBC WITHOUT DIFFERENTIAL, B Routine 09/04/2024 3:36 AM CDT PROTHROMBIN TIME (PT), P Routine 09/04/2024 3:36 AM CDT VANCOMYCIN, RANDOM, S Timed 09/04/2024 12:29 AM CDT GLUCOSE POCT, B Routine 09/03/2024 11:40 PM CDT GLUCOSE POCT, B Routine 09/03/2024 8:42 PM CDT GLUCOSE POCT, B Routine 09/03/2024 4:48 PM CDT MICROSCOPIC MANUAL Routine 09/03/2024 3: 49 PM CDT DIPSTICK, U Routine 09/03/2024 3:49 PM CDT PH, U Routine 09/03/2024 3:49 PM CDT OSMOLALITY, U Routine 09/03/2024 3:49 PM CDT URINALYSIS WITH MICROSCOPIC Routine 09/03/2024 3:49 PM CDT GLUCOSE POCT, B Routine 09/03/2024 11:32 AM CDT NURSING IMAGE EXAM Routine 09/03/2024 9: 51 AM CDT NURSING IMAGE EXAM Routine 09/03/2024 9: 50 AM CDT GLUCOSE POCT, B Routine 09/03/2024 7:45 AM CDT ECG Routine 09/03/2024 6:51 AM CDT LACTATE, B/P Routine 09/03/2024 5:27 AM CDT PROTHROMBIN TIME (PT), P Routine 09/03/2024 5:27 AM CDT BASIC METABOLIC PANEL, S/P Routine 09/03/2024 5:27 AM CDT CBC WITHOUT DIFFERENTIAL, B Routine 09/03/2024 5:27 AM CDT CYSTATIN C WITH EGFR Routine 09/03/2024 5:23 AM CDT GLUCOSE POCT, B Routine 09/03/2024 4:20 AM CDT TROPONIN T, 2H/6H REFLEX, 5TH GEN, P Timed 09/03/2024 12:27 AM CDT GLUCOSE POCT, B Routine 09/03/2024 12:16 AM CDT MRSA/STAPHYLOCOCCUS AUREUS, NASAL, BY PCR Routine 09/03/2024 12:09 AM CDT BACTERIA / MEE CULTURE, BLOOD Routine 09/02/2024 11:38 PM CDT GLUCOSE POCT, B Routine 09/02/2024 11:23 PM CDT LACTATE, B/P STAT 09/02/2024 11:07 PM CDT BACTERIA / MEE CULTURE, BLOOD Routine 09/02/2024 11:07 PM CDT GLUCOSE POCT, B Routine 09/02/2024 11:01 PM CDT TROPONIN T, BASELINE, 5TH GEN, P Routine 09/02/2024 9:58 PM CDT PROTHROMBIN TIME (PT), P STAT 09/02/2024 9:58 PM CDT PROCALCITONIN, S STAT 09/02/2024 9:58 PM CDT PHOSPHORUS (INORGANIC), S STAT 09/02/2024 9:58 PM CDT MAGNESIUM, S STAT 09/02/2024 9:58 PM CDT LIPASE, S/P STAT 09/02/2024 9:58 PM CDT LACTATE, B/P STAT 09/02/2024 9:58 PM CDT HEPATIC FUNCTION PANEL, S STAT 09/02/2024 9:58 PM CDT CBC WITHOUT DIFFERENTIAL, B STAT 09/02/2024 9:58 PM CDT BASIC METABOLIC PANEL, S/P STAT 09/02/2024 9:58 PM CDT C-REACTIVE PROTEIN (CRP), S/P Routine 09/02/2024 9:52 PM CDT CREATINE KINASE (CK), S Routine 09/02/2024 9:52 PM CDT DERMATOLOGY IMAGE EXAM Routine 09/02/2024 9:41 PM CDT DERMATOLOGY IMAGE EXAM Routine 09/02/2024 9:40 PM CDT GLUCOSE POCT, B Routine 08/31/2024 11:50 AM [...] PM CDT NURSING IMAGE EXAM Routine 07/28/2024 10:39 AM CDT BASIC METABOLIC PANEL, S/P Routine [...] CDT ECG Routine 07/24/2024 5:08 PM CDT LIPID PANEL, S Routine 12/24/2023 9:44 AM CADD INSTRUCTOR Stenosis Aortic Valve Acquired COLONOSCOPY Routine 11/21/2022 from Last 3 Months or Most Recently Relevant to Health Maintenance Results * (ABNORMAL) Glucose, POCT (09/06/2024 12:17 PM CDT) Only the most recent of73 resultswithin the time period is included. Pathologist [facility] Glucose, POCT, B 153(H) 70 - 140 mg/dL 09/06/2024 12:21 PM CDT PCLX Site Capillary 09/06/2024 12:21 PM CDT PCLX Last Intake 3-4 hours 09/06/2024 12:21 PM CDT PCLX Blood 09/06/2024 12:1 7 PM CDT 09/06/2024 12:22 PM CDT us Unknown Provider LAB POCT ORDERABLES-MANUAL Eliana l Result Performing Organization Address City/[facility]/ZIP Co de Phone Number [facility] [address] [place] [address], [facility] PCLX [facility] [address] [place] [address] * (ABNORMAL) Morphology Eval (special smear) (09/06/2024 7:20 AM CDT) Only the most recent of2 resultswithin the time period is included. Neutrophilic Segs and Bands 80(H) 50 - 75 % 09/06/2024 11:01 AM CDT [facility] Lymphocytes 9(L) 18 - 42 % 09/06/2024 11:01 AM CDT [facility] Monocytes 10 2 - 11 % 09/06/2024 11:01 AM CDT [facility] Eosinophils 1 1 - 3 % 09/06/2024 11:01 AM CDT [facility] Interpretation See Comment 11:01 AM CDT [facility] Comment:No schistocytes are seen. No platelet clumping. Reviewed by: Tech 09/06/2024 11:01 AM CDT [facility] Blood (Blood, Venous) 09/06/2024 7:20 AM CDT 09/06/2024 7:20 AM CDT us Nori Benítze M.D. LAB BLOOD ADD-ON Final Resu lt Performing Organization Address City/[facility]/ZIP Co de Phone Number [facility] [address] [place] [address], [facility] DHPM [facility] [address] [place] [address] * (ABNORMAL) Prothrombin Time (PT) (09/06/2024 7:20 AM CDT) Only the most recent of20 resultswithin the time period is included. Prothrombin Time, P 21.3(H) 9.4 - 12.5 sec 09/06/2024 8:44 AM CDT DTL INR 1.9 0.9 - 1.1 09/06/2024 8:44 AM CDT DTL Comment: ----ADDITIONAL INFORMATION---- Standard intensity warfarin therapeutic range: 2.0 to 3.0 ?? High intensity warfarin therapeutic range: 2.5 to 3.5 Blood (Blood, Venous) 09/06/2024 7:20 AM CDT 09/06/2024 8:15 AM CDT Yosef Lieberman APRN, C.N.P., D.N.P. LAB BLOOD AD D-ON Final Result [facility] [address] [place] [address], [facility] [place] [address] [place] [address] * Heparin Anti-Xa Assay (09/06/2024 7:20 AM CDT) Only the most recent of3 resultswithin the time period is included. Heparin Anti-Xa, P 0.35 IU/mL 2023 9:02 AM CDT DTL Comment: UFH therapeutic range: ?? 0.30-0.70 IU/mL LMWH therapeutic range: 0.50-1.00 IU/mL 0.50-1.00 IU/mL for twice daily dosing ?? 1.00-2.00 IU/mL for once daily dosing (sample obtained 4-6 hours following subcutaneous injection) LMWH prophylactic range:0.10-0.30 IU/mL ----ADDITIONAL INFORMATION---- Heparin Anti-Xa is used to measure heparin concentrations in patients receiving low molecular weight heparin (LMWH) or unfractionated heparin (UFH). Blood (Blood, Venous) 09/06/2024 7:20 AM CDT 09/06/2024 8:15 AM CDT us Renzo Tejada P.A.-C. LAB BLOOD NON ADD-ON Fin al Result Performing Organization Address City/[facility]/ZIP Co de Phone Number [facility] [address] [place] [address], [facility] DTL [facility] [address] [place] [address] * (ABNORMAL) CBC without Differential (09/06/2024 7:20 AM CDT) Only the most recent of8 resultswithin the time period is included. Hemoglobin 11.0(L) 13.2 - 16.6 g/dL 09/06/2024 8:35 AM CDT DTL Hematocrit 34.6(L) 38.3 - 48.6 % 09/06/2024 8:35 AM CDT DTL Erythrocytes 3.84(L) 4.35 - 5.65 x10(12)/L 09/06/2024 8:35 AM CDT DTL MCV 90.1 78.2 - 97.9 fL 09/06/2024 8:35 AM CDT DTL RBC Distrib Width 15.9(H) 11.8 - 14.5 % 09/06/2024 8:35 AM CDT DTL Platelet Count 87(L) 135 - 317 x10(9)/L 09/06/2024 8:35 AM CDT DTL Leukocytes 11.9(H) 3.4 - 9.6 x10(9)/L 09/06/2024 8:35 AM CDT DTL Blood (Blood, Venous) 09/06/2024 7:20 AM CDT 09/06/2024 8:15 AM CDT Jayro Post APRN, C.N.P., M.S.N. LAB BLOOD AD D-ON Final Result Performing Organization Address City/[facility]/ZIP Co de Phone Number [facility] [address] [place] [address], [facility] DTL [facility] [address] [place] [address] * Phosphorus Inorganic (09/06/2024 7:20 AM CDT) Only the most recent of3 resultswithin the time period is included. Phosphorus (Inorganic), S 3.1 2.5 - 4.5 mg/dL 09/06/2024 8:40 AM CDT DTL Blood (Blood, Venous) 09/06/2024 7:20 AM CDT 09/06/2024 8:23 AM CDT Nori Benítez M.D. LAB BLOOD ADD-ON Final Resu lt Performing Organization Address City/[facility]/ZIP Co de Phone Number [facility] [address] [place], [place] [address] [place] [address] * (ABNORMAL) Magnesium (09/06/2024 7:20 AM CDT) Only the most recent of9 resultswithin the time period is included. Pathologist [facility] Magnesium, S 2.7(H) 1.7 - 2.3 mg/dL 09/06/2024 8:40 AM CDT DT Blood (Blood, Venous) 09/06/2024 7:20 AM CDT 09/06/2024 8:23 AM CDT Nori Benítez M.D. LAB BLOOD ADD-ON Final Resu lt [facility] [address] [place] [address], [facility] [address] [place] [address] * (ABNORMAL) Basic Metabolic Panel (09/06/2024 7:20 AM CDT) Only the most recent of20 resultswithin the time period is included. Potassium, S 4.7 3.6 - 5.2 mmol/L 09/06/2024 8:40 AM CDT DTL Sodium, S 136 135 - 145 mmol/L 09/06/2024 8:40 AM CDT DTL Chloride, S 98 98 - 107 mmol/L 09/06/2024 8:40 AM CDT DTL Bicarbonate, S 28 22 - 29 mmol/L 09/06/2024 8:40 AM CDT DTL Anion Gap 10 7 - 15 09/06/2024 8:40 AM CDT DTL BUN (Blood Urea Nitrogen), S 81(H) 8 - 24 mg/dL 09/06/2024 8:40 AM CDT DTL Creatinine 2.70(H) 0.74 - 1.35 mg/dL 09/06/2024 8:40 AM CDT DTL Estimated GFR (eGFR) 24(L) >=60 mL/min/BSA 09/06/2024 8:40 AM CDT DTL Comment: Estimated GFR calculated using the 2020 CKD_EPI creatinine equation. Calcium, Total, S 8.6(L) 8.8 - 10.2 mg/dL 09/06/2024 8:40 AM CDT DTL Glucose, S 62(L) 70 - 140 mg/dL 09/06/2024 8:40 AM CDT DTL Blood (Blood, Venous) 09/06/2024 7:20 AM CDT 09/06/2024 8:23 AM CDT Jayro Post APRN C.N.P., M.S.N. LAB BLOOD AD D-ON Final Result [facility] [address] [place] [address], [facility] [place] [address] [place] [address] * APTT (Activated Partial Thromboplastin Time) (09/05/2024 10:01 AM CDT) Activated Partial Thrombopl Time, P 37 25 - 37 sec 09/05/2024 10:36 AM CDT ST[facility] Blood (Blood, Venous) 09/05/2024 10:01 AM CDT 09/05/2024 10:09 AM CDT Nori Benítez M.D. LAB BLOOD ADD-ON Final Resu lt Performing Organization Address [facility] de Phone Number [address] [place] [address] * (ABNORMAL) Albumin (09/05/2024 7:32 AM CDT) Albumin, S 3.2(L) 3.5 - 5.0 g/dL 09/05/2024 9:01 AM CDT DTL Blood (Blood, Venous) 09/05/2024 7:32 AM CDT 09/05/2024 8:42 AM CDT Renzo Tejada P.A.-C. LAB BLOOD ADD-ON Final R esult Performing Organization Address [facility] de Phone Number [address] [place] [address] * Leg, right-Physical Medicine And Rehab Image Exam (09/04/2024 9:30 AM CDT) Only the most recent of2 resultswithin the time period is included. 09/04/2024 9:28 AM CDT Narrative IIMS - 09/04/2024 9:30 AM CDT This order has been created and auto-finalized to support the import of images acquired without order. The clinical documentation to support these images can be found on the encounter that produced images. us Provider Not In System IMG NON RAD IMAGING PROCE DURES Final Result Performing Organization Address [facility] de Phone Number IIMS NA * Vancomycin, Random (09/04/2024 12:29 AM CDT) Vancomycin, Random, S 9.7 mcg/mL 09/04/2024 2:02 AM CDT DTL Comment: ----REFERENCE VALUE---- Peak: 20.0 - 45.0 Trough: 10.0 - 20.0 Blood (Blood, Venous) 09/04/2024 12:29 AM CDT 09/04/2024 1:17 AM CDT Eze Shah M.D. LAB BLOOD NON ADD-ON Final Result Performing Organization Address City/[facility] Co de Phone Number [facility] [address] [place], [place] [id number] [place] [address] [facility] [place] [address] [place] [address] * (ABNORMAL) Dipstick, Urine (09/03/2024 3:49 PM CDT) Only the most recent of2 resultswithin the time period is included. Hemoglobin, QL, U Moderate(A) Negative 09/03/2024 4:44 PM CDT DTL Leukocyte Esterase, U Negative Negative 09/03/2024 4:44 PM CDT DTL Nitrite, U Negative Negative 09/03/2024 4:44 PM CDT DTL Ketone, U Negative Negative mg/dL 09/03/2024 4:44 PM CDT DTL Glucose, U Negative Negative mg/dL 09/03/2024 4:44 PM CDT DTL Urine 09/03/2024 3:49 PM CDT 09/03/2024 4:31 PM CDT Emory Glasgow P.A.-C. LAB URINE ORDERABLES F inal Result Performing Organization Address City/[facility] Co de Phone Number [facility] [address] [place], [place] [address] DTL [facility] [address] [place] [address] * Microscopic Manual (09/03/2024 3:49 PM CDT) Microscopy Normal 09/03/2024 5:44 PM CDT DTL RBC <3 <3 /hpf 09/03/2024 5:44 PM CDT DTL WBC None Seen /hpf 09/03/2024 5:44 PM CDT DTL Comment: ----REFERENCE VALUE---- <4 ??(Males) <11 (Females) Casts, Hyaline Occas /lpf 09/03/2024 5:44 PM CDT DTL Urine 09/03/2024 3:49 PM CDT 09/03/2024 4:44 PM CDT Emory Glasgow P.A.-C. LAB URINE ORDERABLES F inal Result Performing Organization Address [facility] Co de Phone Number [facility] [address] [place] [address] * pH, Urine (09/03/2024 3:49 PM CDT) Only the most recent of2 resultswithin the time period is included. pH, U 5.1 4.5 - 8.0 09/03/2024 5:1 5 PM CDT DTL Urine 09/03/2024 3:49 PM CDT 09/03/2024 4:31 PM CDT Emory Glasgow P.A.-C. LAB URINE ORDERABLES F inal Result Performing Organization Address [facility] de Phone Number [facility] [address] [place] [address] * Osmolality, Urine (09/03/2024 3:49 PM CDT) Only the most recent of2 resultswithin the time period is included. Osmolality, U 409 150 - 1150 mOsm/kg 09/03/2024 5:15 PM CDT DTL Urine 09/03/2024 3:49 PM CDT 09/03/2024 4:31 PM CDT Emory G Schalla P.A.-C. LAB URINE ORDERABLES F inal Result Performing Organization Address City/[facility] Co de Phone Number [facility] [address] [place] [address], [facility] DTL [facility] [address] [place] [address] * (ABNORMAL) Urinalysis, with Microscopic: Urine, Midstream (09/03/2024 3:49 PM CDT) Only the most recent of2 resultswithin the time period is included. Source Urine, Urine, Midstream 09/03/2024 4:31 PM CDT DTL Color, U Yellow 09/03/2024 4:31 PM CDT DTL Clarity, U Clear 09/03/2024 4:31 PM CDT DTL Protein, U 60(H) <26 mg/dL 09/03/2024 5:15 PM CDT DTL Protein/Osmol ality 1.47(H) <0.42 ratio 09/03/2024 5:15 PM CDT DTL Predicted 24 HR Protein, U 1357(H) <229 mg/24 h 09/03/2024 5:15 PM CDT DTL Predicted Range 431-4275 mg/24 h 09/03/2024 5:15 PM CDT DTL Comment Micro done on <2.5 mL 09/03/2024 5:41 PM CDT DTL Urine (Urine, Midstream) 09/03/2024 3:49 PM CDT 09/03/2024 4:31 PM CDT Emory Glasgow P.A.-C. LAB URINE ORDERABLES F inal Result Performing Organization Address City/[facility]/ZIP Co de Phone Number [facility] [address] [place] [address], [facility] DTL [facility] [address] [place] [address] * Leg, right-Nursing Image Exam (09/03/2024 9:51 AM CDT) Only the most recent of11 resultswithin the time period is included. 09/03/2024 9:49 AM CDT Narrative IIMS - 09/03/2024 9:51 AM CDT This order has been created and auto-finalized to support the import of images acquired without order. The clinical documentation to support these images can be found on the encounter that produced images. us Provider Not In System IMG NON RAD IMAGING PROCE DURES Final Result Performing Organization Address [facility] Co de Phone Number IIMS NA * ECG 12 Lead (09/03/2024 6:51 AM CDT) Only the most recent of5 resultswithin the time period is included. Ventricular Rate ECG/Min 72 BPM MUSE MD Interval 140 ms MUSE QRSD Interval 76 ms MUSE QT Interval 396 ms MUSE QTC Interval 433 ms MUSE P [place] 40 degrees MUSE R [place] 69 degrees MUSE T Wave [place] 100 degrees MUSE 09/03/2024 6:51 AM CDT 09/03/2024 7:09 AM CDT Impressions MUSE - 09/03/2024 7:09 AM CDT Normal sinus rhythm Cannot rule out Anteroseptal infarct Nonspecific ST and T wave abnormality When compared with ECG of 27-Aug-2024 14:18, No significant change was found Reviewed by MARIELA Araujo Narrative Procedure Note Andre Park M.D. - 09/03/2024 IMPRESSION: Normal sinus rhythm Cannot rule out Anteroseptal infarct Nonspecific ST and T wave abnormality When compared with ECG of 27-Aug-2024 14:18, No significant change was found Reviewed by MARIELA Araujo us Emory Glasgow P.A.-C. ECG ORDERABLES Final Result Performing Organization Address [facility] Co de Phone Number MUSE NA * (ABNORMAL) Lactate (09/03/2024 5:27 AM CDT) Only the most recent of4 resultswithin the time period is included. Lactate, P 2.3(H) 0.5 - 2.2 mmol/L 09/03/2024 6:16 AM CDT DTL Blood (Blood, Venous) 09/03/2024 5:27 AM CDT 09/03/2024 6:03 AM CDT Yosef Lieberman APRN, C.N.P., D.N.P. LAB BLOOD NO N ADD-ON Final Result Performing Organization Address [facility] Co de Phone Number [facility] [address] [place] [address], [facility] [place] [address] [place] [address] * (ABNORMAL) Cystatin C with Estimated GFR (09/03/2024 5:23 AM CDT) Only the most recent of3 resultswithin the time period is included. eGFR by Cystatin C 15(L) >60 mL/min/BSA 09/04/2024 9:02 AM CDT DTL Comment: Estimated GFR calculated [...] lower with the new assay. Cystatin C 3.38(H) 0.67 - 1.21 mg/L 09/04/2024 9:02 AM CDT DTL Blood (Blood, Venous) 09/03/2024 5:23 AM CDT 09/04/2024 8:36 AM CDT Eze Shah M.D. LAB BLOOD ADD-ON Final Res ult Performing Organization Address City/[facility]/ZIP Co de Phone Number [facility] [address] [place] [address], [facility] [place] [address] [place] [address] * (ABNORMAL) Troponin T, 2 Hour with 6 Hour Reflex, 5th Gen (09/03/2024 12:27 AM CDT) Only the most recent of3 resultswithin the time period is included. Troponin T, 2 hr, 5th gen 157(H) <=15 ng/L 09/03/2024 12:54 AM CDT [facility] Comment:Consider acute myoca rdial injury 2H Delta % -8 % 09/03/2024 12:54 AM CDT [facility] Comment:6 hour collection pe nding. 2H Delta Interp Not Changing 09/03/2024 12:54 AM CDT [facility] Blood 09/03/2024 12:2 7 AM CDT 09/03/2024 12:31 AM CDT Yosef Lieberman APRN, C.N.P., D.N.P. LAB BLOOD TR OPONIN Final Result Performing Organization Address City/[facility]/ZIP Co de Phone Number [facility] [address] [place] [address] * Staph aureus / MRSA, Nasal, PCR (09/03/2024 12:09 AM CDT) Staphylococcus aureus, PCR Negative Negative 09/03/2024 3:09 AM CDT DTL MRSA, PCR Negative Negative 09/03/2024 3:09 AM CDT DTL Swab (Nares) 09/03/2024 12:0 9 AM CDT 09/03/2024 1:45 AM CDT Yosef Lieberman APRN, C.N.P., D.N.P. LAB MICROBIOLOGY - GENERAL ORDERABLES Final Result [facility] [address] [place] [address] * (ABNORMAL) Troponin T, Baseline with 2 Hour/6 Hour Reflex Biomarker Panel (09/02/2024 9:58 PM CDT) Only the most recent of3 resultswithin the time period is included. Troponin T, Baseline, 5th gen 171(H) <=15 ng/L 09/02/2024 10:57 PM CDT [facility] Comment:Consider acute myoca rdial injury Blood (Blood, Venous) 09/02/2024 9:58 PM CDT 09/02/2024 10:25 PM CDT us Yosef Lieberman APRN, C.N.P., D.N.P. LAB BLOOD TR OPONIN Final Result [facility] [address] [place] [address], [facility] [address] [place] [address] * (ABNORMAL) Hepatic Function Panel (09/02/2024 9:58 PM CDT) Bilirubin, Total, S 1.2 0.0 - 1.2 mg/dL 09/02/2024 11:00 PM CDT DTL Bilirubin, Direct, S 0.7(H) 0.0 - 0.3 mg/dL 09/02/2024 11:00 PM CDT DTL Aspartate Aminotransferase (AST), S 95(H) 8 - 48 U/L 09/02/2024 11:00 PM CDT DTL Alanine Aminotransferase (ALT), S 49 7 - 55 U/L 09/02/2024 11:00 PM CDT DTL Alkaline Phosphatase, S 128 40 - 129 U/L 09/02/2024 11:00 PM CDT DTL Albumin, S 3.5 3.5 - 5.0 g/dL 09/02/2024 11:00 PM CDT DTL Protein, Total, S 6.0(L) 6.3 - 7.9 g/dL 09/02/2024 11:00 PM CDT DTL Blood (Blood, Venous) 09/02/2024 9:58 PM CDT 09/02/2024 10:28 PM CDT us Yosef Lieberman APRN, C.N.P., D.N.P. LAB BLOOD AD D-ON Final Result Performing Organization Address [facility] [place] [address] * (ABNORMAL) Procalcitonin (09/02/2024 9:58 PM CDT) Procalcitonin, S 3.82(H) 0.00 - 0.24 ng/mL 09/02/2024 11:00 PM CDT DT Comment: Procalcitonin >=0.25 ng/mL may indicate bacteremia or bacterial pneumonia; however, it is a non-specific biomarker. False positives can be seen in patients with a variety of illnesses, including but not limited to severe trauma, shock, recent surgery, nunn, renal insufficiency, severe liver disease, COVID-19, and certain malignancies. Blood (Blood, Venous) 09/02/2024 9:58 PM CDT 09/02/2024 10:28 PM CDT Radha Cardenas APRNN.P., D.N.P. LAB BLOOD AD D-ON Final Result Performing Organization Address [facility] Co de Phone Number [facility] [address] [place] [address] * Lipase (09/02/2024 9:58 PM CDT) Lipase, S 19 13 - 60 U/L 09/02/2024 11:00 PM CDT DTL Blood (Blood, Venous) 09/02/2024 9:58 PM CDT 09/02/2024 10:28 PM CDT Yosef Lieberman APRN C.N.P., D.N.P. LAB BLOOD AD D-ON Final Result Performing Organization Address City/[facility]/ZIP Co de Phone Number [facility] [address] [place] [address], [facility] [address] [place] [address] * (ABNORMAL) CRP (C-Reactive Protein) (09/02/2024 9:52 PM CDT) Only the most recent of3 resultswithin the time period is included. C-Reactive Protein (CRP), S 81.2(H) <5.0 mg/L 09/02/2024 11:34 PM CDT DT Blood 09/02/2024 9:52 PM CDT 09/02/2024 11:09 PM CDT Yosef Lieberman APRN, C.N.P., D.N.P. LAB BLOOD AD D-ON Final Result [facility] [address] [place] [address], [facility] [address] [place] [address] * (ABNORMAL) CK (Creatine Kinase) (09/02/2024 9:52 PM CDT) Creatine Kinase (CK), S 610(H) 39 - 308 U/L 09/02/2024 11:34 PM CDT DT Blood (Blood, Venous) 09/02/2024 9:52 PM CDT 09/02/2024 11:09 PM CDT Yosef Lieberman APRN, C.N.P., D.N.P. LAB BLOOD AD D-ON Final Result [facility] [address] [place], [place] [phone] [place] [address] 200 [place] [address] * left Leg 528b-Dermatology Image Exam (09/02/2024 9:41 PM CDT) Only the most recent of2 resultswithin the time period is included. 09/02/2024 9:40 PM CDT Narrative IIMS - 09/02/2024 9:41 PM CDT This order has been created and auto-finalized to support the import of images acquired without order. The clinical documentation to support these images can be found on the encounter that produced images. us Provider Not In System IMG NON RAD IMAGING PROCE DURES Final Result IIVA NA * (ABNORMAL) CBC with Differential, Blood (08/31/2024 [...] M.D., Ph.D. LAB BLOOD ADD-ON Final Result [facility] [address] [place] [address], [facility] [address] [place], [place] [phone] [place] [address] 200 [place] [address] * Bacteria / Mee Culture, Blood #2 (08/29/2024 5:12 PM CDT) Only the most recent of2 resultswithin the time period is included. [facility] Bacteria/Kimberlyn da Culture, Blood No growth after 5 days of incubation. 09/03/2024 6:02 PM CDT DTL Blood (Blood, Peripheral Draw) 08/29/2024 5:12 PM CDT 08/29/2024 5:41 PM CDT Comment:Specimen Source Site : Blood Narrative [facility] - 09/03/2024 6:02 PM CDT Received Bactec aerobic and Bactec anaerobic bottles Mando Fang M.D., Ph.D. LAB MICROBIOLOGY - GEN ERAL ORDERABLES Final Result Performing Organization Address City/[facility]/ZIP Co de Phone Number [facility] [address] [place] [address], [facility] [address] [place] [address] * Lactate for Sepsis with Reflex (08/29/2024 5:01 PM CDT) Only the most recent of2 resultswithin the time period is included. [facility] Lactate, P 1.7 0.5 - 2.2 mmol/L 08/29/2024 5:36 PM CDT [facility] Blood (Blood, Venous) 08/29/2024 5:01 PM CDT 08/29/2024 5:20 PM CDT Mando Fang M.D., Ph.D. LAB BLOOD NON ADD-ON F inal Result [facility] [address] [place] [address], [facility] [address] [place] [address] * (TTE) 2D ECHO DOPPLER COLOR (08/29/2024 2:04 PM CDT) Ejection Fraction 68 MC CV EIMS LV [...] CABG x1, PVI, and DAHIANA amputation (19-SEP-2023, [place]). Echocardiogram performed per left ventricular function protocol [...] prosthesis, CABG x1, PVI,and DAHIANA amputation (19-SEP-2023, [place]). Echocardiogram performed per leftventricular function protocol + [...] ECHO PROCEDURES Final R esult * (ABNORMAL) NT-Pro B-Type Natriuretic Peptide (BNP) (08/27/2024 2:59 PM CDT) Only the most recent of2 resultswithin the time period is included. NT-Pro BNP 5662(H) <=540 pg/mL 08/27/2024 3:35 PM CDT [facility] Comment: NT-proBNP values less than 300 [...] P.A.-C. LAB BLOOD ADD-ON Final Res ult [facility] [address] [place] [address], [facility] [address] [place] [address] * DX Chest AP or PA and [...] DIAGNOSTIC IMAGING PRO CEDURES Final Result * Leg-Emergency Medicine Image Exam (08/27/2024 2:10 [...] M.S. LAB BLOOD [place] [address], [facility] [place] [place] [address] * Microscopic Automated (07/31/2024 11:33 AM CDT) [...] Chelsea Izaguirre M.D. LAB URINE ORDERABLES Eliana david Result [facility] [address] [place] [address], [place] DTL [facility] [address] [place] [address] * US Kidneys Bilateral with Bladder (07/31/2024 [...] withouthydronephrosis. 2. Moderate volume of perihepatic ascites. us Deven Clement M.D., M.S. IMG US PROCEDURES Fin al Result * (ABNORMAL) Hemoglobin A1c (07/29/2024 7:34 AM CDT) Pathologist [facility] Hemoglobin A1c, B 7.5(H) 4.0 - 5.6 [...] BLOOD ADD-ON Final Result Performing Organization Address City/[facility]/ZIP Co de Phone Number [facility] [address] [facility] [place] 200 [place] [address] * (ABNORMAL) Troponin T, 5th Generation (07/26/2024 8:27 AM CDT) [facility] Troponin T, 5th gen 110(H) <=15 ng/L 07/26/2024 9:08 AM CDT [facility] Comment:Consider acute myoca rdial injury Blood (Blood, Venous) 07/26/2024 8:27 AM CDT 07/26/2024 8:32 AM CDT Neftaly Gomez M.D. LAB BLOOD ADD-ON Final Result Performing Organization Address City/[facility]/ZIP Co de Phone Number [facility] [address] [place], [place] [phone] [place] [address] STMA [facility] 200 [place] [address] * Iron and Total Iron-Binding Capacity (07/26/2024 7:21 AM CDT) [facility] Iron 53 50 - 150 mcg/dL 07/26/2024 8:46 AM CDT DTL Total Iron Binding Capacity 270 250 - 400 mcg/dL 07/26/2024 8:46 AM CDT DTL Percent Saturation 20 14 - 50 % 07/26/2024 8:46 AM CDT DTL Blood (Blood, Venous) 07/26/2024 7:21 AM CDT 07/26/2024 8:10 AM CDT Yasmine Garduno M.D., Ph.D. LAB BLOOD ADD-ON Eliana l Result [facility] [address] [place] [address], [facility] [address] [place] [address] * Fibrinogen (07/26/2024 7:21 AM CDT) Fibrinogen, P 385 200 - 393 mg/dL 07/26/2024 8:23 AM CDT DT Blood (Blood, Venous) 07/26/2024 7:21 AM CDT 07/26/2024 7:56 AM CDT Yasmine Garduno M.D., Ph.D. LAB BLOOD ADD-ON Eliana l Result Performing Organization Address City/[facility]/ZIP Co de Phone Number [facility] [address] [place] [address], [facility] [address] [place] [address] * Reticulocytes (07/26/2024 7:21 AM CDT) Reticulocytes, B 1.46 0.60 - 2.71 % 07/26/2024 8:09 AM CDT DTL Absolute Reticulocyte 62.8 30.4 - 110.9 x10(9)/L 07/26/2024 8:09 AM CDT DTL Blood (Blood, Venous) 07/26/2024 7:21 AM CDT 07/26/2024 7:55 AM CDT Yasmine Garduno M.D., Ph.D. LAB BLOOD ADD-ON Eliana l Result [facility] [address] [place] [address], [facility] [address] [place] [address] * (ABNORMAL) Haptoglobin (07/26/2024 7:21 AM CDT) Haptoglobin, S <14(L) 30 - 200 mg/dL 07/29/2024 8:13 AM CDT [facility] Blood (Blood, Venous) 07/26/2024 7:21 AM CDT 07/28/2024 6:34 AM CDT Yasmine Garduno M.D., Ph.D. LAB BLOOD ADD-ON Eliana l Result Performing Organization Address City/[facility]/ZIP Co de Phone Number [facility] [address] [place] [address] [facility] [address] [place] [address] * Folate (07/26/2024 7:21 AM CDT) Folate, S 11.6 >=4.0 mcg/L 07/28/2024 8: 00 AM CDT DT Blood (Blood, Venous) 07/26/2024 7:21 AM CDT 07/26/2024 8:10 AM CDT us Yasmine Garduno M.D., Ph.D. LAB BLOOD ADD-ON Eliana l Result Performing Organization Address City/[facility]/ZIP Co de Phone Number [facility] [address] [place] [address], [facility] [address] [place] [address] * Ferritin (07/26/2024 7:21 AM CDT) Ferritin, S 179 31 - 409 mcg/L 07/26/2024 8:46 AM CDT DT Blood (Blood, Venous) 07/26/2024 7:21 AM CDT 07/26/2024 8:10 AM CDT Yasmine Gadruno M.D., Ph.D. LAB BLOOD ADD-ON Eliana l Result Performing Organization Address City/[facility] Co de Phone Number [facility] [address] [place], [place] [phone] [place] [address] 200 [place] [address] * (ABNORMAL) Vitamin B12 Assay (07/26/2024 7:21 [...] ADD-ON Eliana l Result Performing Organization Address [facility] Co de Phone Number [facility] [address] [place], [place] [address] [address] [place] [address] * (ABNORMAL) Troponin T, 6h, 5th Gen [...] Interp SEE COMMENT 07/25/20 8:07 PM CDT [facility] Comment:Test cancelled. Spec imen not received within delta timeframe. Blood 07/25/2024 7:26 PM CDT 07/25/2024 7:33 PM CDT Barbara Jay, B.Ch. LAB BLOOD TROP[place] IN Final Result [facility] [address] [place] [address], [facility] & [facility] [address] [place] [address] * (TTE) 2D ECHO DOPPLER COLOR (07/25/2024 [...] CABG x1, PVI, and DAHIANA amputation (19-SEP-2023, [place]). 3. Small left ventricular chamber size. Abnormal [...] CABG x1, PVI, and DAHIANA amputation (19-SEP-2023, [place]). Echocardiogram performed per left ventricular function protocol [...] prosthesis, CABG x1,PVI, and DAHIANA amputation (19-SEP-2023, [place]). 3. Small left ventricular chamber size. Abnormal [...] prosthesis, CABG x1, PVI,and DAHIANA amputation (19-SEP-2023, [place]). Echocardiogram performed per leftventricular function protocol + [...] PROCEDURES Ed ited Result - Final * Sedimentation Rate (07/25/2024 1:49 PM CDT) [facility] Sedimentation Rate, B 13 3 - 28 mm/h 07/25/2024 4:17 PM CDT DTL Blood (Blood, Venous) 07/25/2024 1:49 PM CDT 07/25/2024 2:36 PM CDT Neftaly Gomez M.D. LAB BLOOD ADD-ON Final Result [facility] [address] [place] [address], [facility] [place] [address] [place] [address] * Lipid Panel (12/24/2023 9:44 AM CADD INSTRUCTOR) [facility] Triglycerides 68 mg/dL 12/24/2023 1:00 PM CADD INSTRUCTOR DTL Comment: ----REFERENCE VALUE---- Normal: <150 mg/dL Borderline High: 150-199 mg/dL High: 200-499 mg/dL Very High: > or =500 mg/dL Cholesterol, Total 107 mg/dL 2023 1:00 PM CADD INSTRUCTOR DTL Comment: ----REFERENCE VALUE---- Desirable: < 200 mg/dL Borderline High: 200 - 239 mg/dL High: > or = 240 mg/dL Cholesterol, LDL, Calculated 50 mg/dL 12/24/2023 1:00 PM CADD INSTRUCTOR DTL Comment: ----REFERENCE VALUE---- Desirable: <100 mg/dL Above Desirable: 100-129 mg/dL Borderline High: 130-159 mg/dL High: 160-189 mg/dL Very High: >=190 mg/dL ----ADDITIONAL INFORMATION---- LDL cholesterol calculated using the Iglesias/NIH equation. Cholesterol, HDL, S 42 >=40 mg/dL 12/24/2023 1:00 PM CADD INSTRUCTOR DTL Cholesterol, Non-HDL, Calculated 65 mg/dL 12/24/2023 1:00 PM CADD INSTRUCTOR DTL Comment: ----REFERENCE VALUE---- Desirable: <130 mg/dL Above Desirable: 130-159 mg/dL Borderline High: 160-189 mg/dL High: 190-219 mg/dL Very High: > or =220 mg/dL Fasting (8 HR or more) yes 12/24/2023 10:18 AM CADD INSTRUCTOR DTL Blood (Blood, Venous) 12/24/2023 9:44 AM CADD INSTRUCTOR 12/24/2023 10:18 AM CADD INSTRUCTOR Gudelia Soto M.D. LAB BLOOD ADD-ON Final Result [facility] [address] [place] [address], [facility] [place] [address] [place] [address] * Colonoscopy (11/21/2022) EXT Colonoscopy Normal - See Scanned Report for Details Normal - See Scanned Report for Details, HIMS - Report Received and Scanned us Historical Provider GI PROCEDURE ORDERABLES Eliana l Result from Last 3 Months or Most Recently Relevant to Health Maintenance Insurance [facility] Address: [facility] [address] [address] [place] [address] Advance Directives For more information, please contact: [phone] * Full Code (Latest Code Status on File) Date Activated Date Inactivated Comments 09/02/2024 9:41 PM Question Answer Comments Full Code: Discussed * Full Code Date Activated Date Inactivated Comments 08/27/2024 5:51 [...] Answer Comments Full Code: Discussed Care Teams 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
--- OUTSIDE RECORDS SUMMARY | 2024-09-06 15:52 | XMS_ITS | Encounter Summary ---
Author Organization [facility] Address [address] [place] [address] Care Team Providers Care Home Visitor Home Base Head Start Name Role Phone Elsewhere, Pcp Primary Care Provider Unavailabl e Encounter Details Date Type Department Care Team (Late st Contact Info) Description 09/03/2024 9:55 AM CDT Ancillary Procedure Department of Nursing Arrived Social History Tobacco Use Types Packs/Day Years Used Date Smoking Tobacco: Never Smokeless Tobacco: Never Comments:Smoked recreational ly over 40 years ago - a few cigarettes once in a while. Alcohol Use Standard Drinks/Week Comments Never 0 (1 standard drink = 0.6 oz pur e alcohol) [facility] Utilities Answer Date Recorded In the past 12 months has e electric, gas, oil, or water [employer] threatened to shut off services in your [...] [facility] 09/02/2024 Sex and Gender [...] AM CDT Clinical Communication Virtual Review in [place], [place] [address] [place] [address] 09/16/2024 1:00 PM SUPERVISOR LOOPING Appointment Department of Radiology, [facility], in [place], [place] [address] [place] [address] Deven Clement M.D., M.S. [address] [place] [phone] 09/16/2024 1:20 PM SUPERVISOR LOOPING Appointment Department of Laboratory Medicine and Pathology, [facility] in [place], [place] [address] [place] [phone] Deven Clement M.D., M.S. [address] [place] [phone] 09/16/2024 1:40 PM SUPERVISOR LOOPING Ancillary Procedure Department of Cardiovascular Medicine in [place], [place] [address] [place] [phone] Deven Clement M.D., M.S. [address] [place] [phone] 09/16/2024 4:00 PM SUPERVISOR LOOPING Comprehensive Visit Department of Cardiovascular Medicine in [place], [place] [address] [place] [phone] Keagan Tellez M.D. [address] [place] [phone] documented as of this encounter Procedures Procedure Name Priority Date/Time Associated Diagnosis Comments NURSING IMAGE EXAM Routine 09/03/2024 9: 51 AM CDT documented in this encounter Results * Leg, right-Nursing Image Exam (09/03/2024 9:51 AM CDT) 09/03/2024 9:49 AM CDT Narrative [facility] - 09/03/2024 9:51 AM CDT This order has been created and auto-finalized to support the import of images acquired without order. The clinical documentation to support these images can be found on the encounter that produced images. us Provider Not In System IMG NON RAD IMAGING PROCE TERI Final Result [facility] NA documented in this encounter Visit Diagnoses Not on filedocumented in this encounter Additional Health Concerns Assessment Noted Time PHQ-9 Depression Total Score: 3 08/30/20 24 6:00 AM CDT documented as of this encounter Care Teams Home Visitor Home Base Head Start Relationship Specialty Start Date End Date Elsewhere, Pcp PCP - General Internal Medicine 07/28/24 documented as of this encounter
--- OUTSIDE RECORDS SUMMARY | 2024-09-06 15:52 | XMS_ITS | Encounter Summary ---
Author Organization [facility] Address [address] [place] [address] Care Team Providers Care Refrigeration Unit Repairer Name Role Phone Elsewhere, Pcp Primary Care Provider Unavailabl e Encounter Details Date Type Department Care Team (Late st Contact Info) Description 09/04/2024 9:35 AM CDT Ancillary Procedure Department of Physical Medicine and Rehab Arrived Social History Tobacco Use Types Packs/Day Years Used Date Smoking Tobacco: Never Smokeless Tobacco: Never Comments:Smoked recreational ly over 40 years ago - a few cigarettes once in a while. Alcohol Use Standard Drinks/Week Comments Never 0 (1 standard drink = 0.6 oz pur e alcohol) [facility] Utilities Answer Date Recorded In the past 12 months has e Locally, gas, oil, or water [employer] threatened to shut off services in your [...] your living situation today? [facility] 09/02/2024 Sex and [...] AM CDT Clinical Communication Virtual Review in [place], [place] [address] [place] [phone] 09/16/2024 1:00 PM SURVEILLANCE AGENT Appointment Department of Radiology, [facility], in [place], [place] [address] [place] [phone] Deven Clement M.D., M.S. [address] [place] [phone] 09/16/2024 1:20 PM SURVEILLANCE AGENT Appointment Department of Laboratory Medicine and Pathology, [facility] in [place], [place] [address] [place] [address] Deven Clement M.D., M.S. [address] [place] [phone] 09/16/2024 1:40 PM SURVEILLANCE AGENT Ancillary Procedure Department of Cardiovascular Medicine in [place], [place] [address] [place] [phone] Deven Clement M.D., M.S. [address] [place] [phone] 09/16/2024 4:00 PM SURVEILLANCE AGENT Comprehensive Visit Department of Cardiovascular Medicine in [place], [place] [address] [place] [phone] Keagan Tellez M.D. [address] [place] [phone] documented as of this encounter Procedures Procedure Name Priority Date/Time Associated Diagnosis Comments PHYSICAL MEDICINE AND REHAB IMAGE EXAM Routine 09/04/2024 9:30 AM CDT documented in this encounter Results * Leg, right-Physical Medicine And Rehab Image Exam (09/04/2024 9:30 AM CDT) 09/04/2024 9:28 AM CDT Narrative [facility] - [...] as of this encounter Care Teams Refrigeration Unit Repairer Relationship Specialty Start Date End Date Elsewhere, Pcp PCP - General Internal Medicine 07/28/24 documented as of this encounter
--- OUTSIDE RECORDS SUMMARY | 2024-09-06 15:52 | XMS_ITS | Encounter Summary ---
Author Organization [facility] Address [address] [place] [address] Care Team Providers Care Apartment House Manager Name Role Phone Elsewhere, Pcp Primary Care Provider Unavailabl e Reason for Visit * Auth/Cert (Routine) Specialty Diagnoses / Procedures Referred By Contac t Referred To Contact Diagnoses Severe Sepsis With Septic Shock (HCC) Sepsis (HCC) septic shock, hypotension Procedures DIR Referral ID Status Reason Start Date Expiration Date Visits Re quested Visits Authorized [id number] 1 1 Encounter Details Date Type Department Care Team (Latest Contact Info) Description 09/02/2024 9:15 PM CDT - Present Hospital Encounter [facility], [facility], [facility], Fourth Floor [address] [place] [phone] Ranulfo Qureshi M.D. [address] [place] [phone] Eze Shah M.D. [address] [place] [phone] Nori Benítez M.D. [address] [place] [phone] Nidia Inman M.D. [address] [place] [phone] Unspecified Open Wound Right Lower Leg Sequela [S81.801S] (Primary Dx); Severe Sepsis With Septic Shock (HCC) [R65.21]; Unspecified Open Wound Left Lower Leg Sequela [S81.802S]; Decline Functional Status [R53.81]; Cellulitis [L03.90] Social History Tobacco Use Types Packs/Day Years Used Date Smoking Tobacco: Never Smokeless Tobacco: Never Comments:Smoked recreational ly over 40 years ago - a few cigarettes once in a while. Alcohol Use Standard Drinks/Week Comments Never 0 (1 standard drink = 0.6 oz pur e alcohol) [facility] Utilities Answer Date Recorded In the past 12 months has e [employer], gas, oil, or water [employer] threatened to shut off services in your [...] [facility] place to live 09/02/2024 Sex and Gender [...] Mass Index 27.61 09/03/2024 2:09 PM CDT documented in this encounter Discharge Summaries * Maude Rob M.B.B.S., MLeonid. - 09/04/2024 10:46 AM CDT SUBJECTIVE Dog reports feeling a lot better today. He is awake, alert and oriented x3. He presented with fatigue and lower extremity pain at OSH, and was subsequently transferred to [facility] ICU for shock. His fatigue and lower extremity pain has improved drastically. He is comfortable, cheerful and appears to bein joyous mood. He overall feels extremely well, continues to have some lower extremity pain and swelling but it is well controlled with the medications that he has been receiving. His only concern is about the cardiac MRI appointment that he has at [facility] tomorrow, and wondering if this could be done inpatient here. No other concerns REASON FOR TRANSFER Mr. Harris is transferred from [facility] Medicine 2 Service to [facility] 7 service. Condition at Transfer Stable OBJECTIVE VITAL SIGNS Temperature: [36.5 ??C-36.9 ??C] 36.7 ??C Heart Rate: [68-82] 70 Resp Rate: [12-24] 16 Blood Pressure: (93-127)/(56-83) 109/58 SpO2: [93 %-99 %] 99 % Pulse Rate: [68-82] 77 Intake/Output Last 24 Hours: Intake/Output Summary (Last 24 hours) at 09/04/2024 1050 Last data filed at 09/04/2024 0745 Gross per 24 hour Intake 1150 ml Output 1070 ml Net 80 ml PHYSICAL EXAM General: Awake, alert and oriented x3 HEENT: Normocephalic atraumatic Heart: Rate rhythm regular Lungs: Clear to auscultation Abdomen: Soft, nontender, nondistended, bowel sounds present Lower extremity: Both lower extremities are swollen and tender to touch, open wounds wrapped in bandage. Pics uploaded in chart DIAGNOSTICS I have reviewed recent vitals, labs and imaging ASSESSMENT / PLAN SUMMARY OF CARE Jong Harris is a 74 y.o. male patient who presents to the Medical Intensive Care Unit (MICU)from [facility] via ground ambulance after presenting to their Emergency Department for evaluation of fatigue, weakness, increased right lower extremity pain and redness. Symptoms began the morning of September 02, 2024. 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 Patient was discharged home on August 31, 2024 with instructions to increase his Torsemide to 60 mg twice daily as well as to start Duricef for his right lower extremity cellulitis. In the Emergency Department at [place], patient was found to be hypotensive (80's/40's). For this reason, patient was given 500 ml of crystalloids followed by the initiation of Norepinephrine. Labs in the Emergency Department were significant for an elevated white count at 15.90 and C-reactive of 2.9. US of the bilateral lower extremities was negative. Patient was given a dose of Clindamycin for his right lower extremity cellulitis. Upon arrival to the medical intensive care unit, he was rapidly titrated off of Norepinephrine support and continued on Piperacillin-Tazobactam and Vancomycin for bilateral lower extremity cellulitis. His home Prednisone was resumed for his restrictive pericarditis but his Colchicine was held due to significant acute kidney injury. Due to continued stability, he was transferred to a general medicine service on 09/04/2024. # Cellulitis, bilateral lower extremity # 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 # Severe Sepsis With Septic Shock (HCC): Resolved - lower extremity cellulitis improving, pictures uploaded into chart. -continue IV Piperacillin-Tazobactam until 09/08. -Recommend ensuring that patient has no PT/OT needs prior to dismissal. # H/O Pericarditis Constrictive (HCC) #Coronary Artery Disease Without Angina Pectoris # Coronary Arterial Bypass Graft Status Post Personal History # Atrial Fibrillation Paroxysmal (HCC) # Hypertension Essential Primary # Hyperlipidemia On Treatment # Stenosis Aortic Valve Acquired # Prosthesis Aortic Valve # 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 1 To 4 Chronic Kidney Disease Or Unspecified Chronic Kidney Disease He was on colchicine as well as tapering course of prednisone for pericarditis, colchicine had beenheld during hospitalization given renal failure. Currently no symptoms of acute pericarditis Plan - continue home dose of aspirin, Lipitor, prednisone. -monitor intake/output, re-evaluate fluid status tomorrow and can consider resuming diuretics when deemed appropriate -continue Coumadin -patient has outpatient cardiac MRI appointment tomorrow at [facility]. He would like to get done this inpatient if possible, if not then appointment need to be rescheduled at earliest date possible # Diabetes Mellitus Type 2 (HCC) -noted to have glucose of 56 this morning, DCS consult to adjust insulin dosing. -monitor blood sugars # Stroke Cerebrovascular Accident Personal History # Hemiplegia Dominant Side Right (HCC) # Benign Prostatic Hyperplasia Without Obstruction # restless leg syndrome -continue home dose of Flomax, aspirin and statin -continue home dose of ropinirole Code status: Full Code I personally spent a total of 50 minutes providing and coordinating care today. * Madhavi Maloney APRN, C.N.P., M.S.N. - 09/04/2024 10:44 AM CDT SUBJECTIVE REASON FOR TRANSFER No longer needs ICU level of care OBJECTIVE PHYSICAL EXAM See today's progress note ASSESSMENT / PLAN SUMMARY OF CARE Jong Harris is a 74 y.o. male patient who presents to the Medical Intensive Care Unit (MICU)from [facility] via ground ambulance after presenting to their Emergency Department for evaluation of fatigue, weakness, increased right lower extremity pain and redness. Symptoms began the morning of September 02, 2024. Past medical history includes: CABG and AVR (2022), Postoperative restrictive pericarditis, Hypertension, Hyperlipidemia, T2DM, Lower extremity cellulitis (Positive swab for Pseudomonas) CKD and history of CVA. Recent pertinent history includes admission to the Cardiology Services on August 27, 2024 for heart failure exacerbation as well as lower extremity edema and cellulitis. Patient was discharged home on August 31, 2024 with instructions to increase his Torsemide to 60 mg twice daily as well as to start Duricef for his right lower extremity cellulitis. In the Emergency Department at [place], patient was found to be hypotensive (80's/40's). For this reason, patient was given 500 ml of crystalloids followed by the initiation of Norepinephrine. Labs in the Emergency Department were significant for an elevated white count at 15.90 and C-reactive of 2.9. US of the bilateral lower extremities was negative. Patient was given a dose of Clindamycin for his right lower extremity cellulitis. Upon arrival to the medical intensive care unit, he was rapidly titrated off of Norepinephrine support and continued on Piperacillin-Tazobactam and Vancomycin for bilateral lower extremity cellulitis. His home Prednisone was resumed for his restrictive pericarditis but his Colchicine was held due to significant acute kidney injury. Due to continued stability, he was transferred to a general medicine service on 09/04/2024. Recommendations/Follow-Up: - Recommend continuation of IV Piperacillin-Tazobactam until 09/08. - Continue to resume home medications as clinically indicated. - Home Colchicine will need to be resumed once MANJEET has resolved/improved. - Recommend ensuring that patient has no PT/OT needs prior to dismissal. Norma Betancourt, C.N.P, PIERRE documented in this encounter Progress Notes * Keyla White P.T., D.P.T., [facility] - 09/06/2024 12:40 PM CDT Wound Therapy Inpatient Treatment Note SUBJECTIVE Patient's Name: Jong Harris Referring/Attending Provider: Nori Benítez M.D. Medical Diagnosis: Severe Sepsis With Septic Shock ([facility]) [R65.21] Sepsis ([facility]) [A41.9] Reason for Referral: PMR wound assess and treat-bilateral lower extremities Onset Date: 09/02/24 Payor: AARP / Plan: [facility] MEDICARE ADVANTAGE PPO / Product Type: PPO / Patient/Caregiver Goals: Wound healing Patient Comments: patient sitting in bedside chair upon arrival, is agreeable to therapy session, reports pain with contact to right lower extremity wounds but does not rate on pain scale. OBJECTIVE Treatment: Modality: Non-contact low frequency ultrasound x 8 total minutes Debridement: Mechanical debridement performed with fluffed gauze. Dressings: Mepilex Ag (ABD on right), Kerlix, LEATHA wrap Vashe soak applied x 5 minutes to all wounds. Position: Patient was in seated position with LE's elevated for treatment session. Education provided to patient regarding mist ultrasound and plan of care. Communication and collaboration occurred with patient's nurse regarding plan of care. Team Communication: Patient's nurse was contacted and patient's status was discussed Assessment Comorbid Conditions: Diabetes, Cancer, Cerebrovascular accident, Cardiopulmonary disease Personal Factors: Age Wound Care Discharge Needs: Ongoing wound care management by patient and/or caregiver., No ongoing therapeutic technologies required at discharge for wound care. Clinical Impression: Patient's L medial leg wound continues to present with mixed base, some biofilm remains present as well as sloughing epithelium from previous bulla. R anterior lower leg wound presents with clean pink wound base. R posterior leg wound presents with mixed wound base with yellow non-viable tissue present. Patient notes pain with contact to R lower extremity wounds. There continues to be moderate serous drainage, less than previous sessions. Will continue to assess daily. Rehab Potential: Mr. Harris has excellent potential to achieve established wound therapy goals within the time frame outlined below. Functional Goals and Timeframes: Goal #1: WD: Right leg wound size will decrease 10% by goal review date in order to advance to proliferative phase of healing. (3.4x5.5cm) Goal #1 Date: 09/11/24 Goal #1 Status: Slowly progressing Goal #2: WD: Left leg wound size will decrease 10% by goal review date in order to advance to proliferative phase of healing.(5x6cm) Goal #2 Date: 09/11/24 Goal #2 Status: Slowly progressing Progress: Progressing toward goals Plan Patient agrees with the plan of care and goals. Treatment Plan: Frequency: 5 times per week Days of Treatment: , Sunday, Sunday, Sunday, Sunday PT Wound Duration: Until goals are met or hospital discharge PT - Next Inpatient Wound Care Appointment: 09/07/24 Plan: Continue with current plan Wound PT Plan Comments: WD: Patient will continue non-contact low frequency ultrasound, debridementand wound cares daily x5 days (until 09/08) after which time frequency will be reassessed pending wound response and hospital course. Treatment interventions may include: Wound cares, Offloading, Debridement, Wound dressing assessment, Therapeutic modalities as needed, Self-care/home management Time Spent with Patient Modalities Ultrasound - low freq, non-thermal (min): 25 min Time Tracking Total Timed Units (min): 25 min Total Treatment Time (min): 25 min Keyla White P.T., D.P.TJarrett, CWS * Beatriz Taveras Pharm.D., R.Ph., BCPS - 09/06/2024 10:58 AM CDT Pharmacist Progress Note Reason for admission: Shock (septic vs cardiogenic). 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 Home medications: per [facility] Held: cefadroxil, Vit D, colchicine, B12, metop Changed: insulin adjustments, prednisone, torsemide reduced Prophylaxis: warfarin Warfarin Warfarin Indication: Aortic valve - Mechanical Other indication (comments): No data recorded Type of therapy: Continuation Prior average daily dose: 2 Comorbidities: Heart failure diagnosis (stable/compensated) Are any of these comorbidities new with admission? No Are there any new medication interactions with admission? Yes Target INR: 2 - 3 Day of therapy: 4 Notable drug interactions include the following: yes - Zosyn Concurrent anticoagulation: IV heparin bridge INR reversal agents: were not given Warfarin Administrations (last 168 hours) Date/Time Action Medication Dose 09/05/24 1705 Given warfarin tablet 2 mg (Jantoven) 2 mg 09/04/24 1711 Given warfarin tablet 2 mg (Jantoven) 2 mg 09/03/24 1643 Given warfarin tablet 1 mg (Jantoven) 1 mg 09/02/24 2219 No Dose Today warfarin (Jantoven) NO Dose Today INR (no units) Date Value Status 09/06/2024 1.9 Final 09/05/2024 1.9 Final 09/04/2024 2.8 Final 09/04/2024 CANCELED Corrected 09/03/2024 3.2 Final 09/02/2024 2.8 Final 08/31/2024 2.2 Final ASSESSMENT / PLAN Hypotensive on admission. Treating SSTI/sepsis with Zosyn 2.25 gm q6h for SSTI x 7 days, EOT 09/08. 09/02 blood cultures NGTD; MRSA/MSSA nasal swab negative. Vanco stopped. Possible cefadroxil failure (received 08/29-09/03). MANJEET on CKD. SCr improving 2.7 today (peak 3.36 on 09/03), baseline ~2.5. Holding [employer] colchicine. Pericarditis. Holding [employer]ING SOFTWARE [employer] colchicine for MANJEET. Tapering prednisone- currently has prednisone 17.5 mg. Per med hx note, pt reported that he started 15 mg daily on 08/31, but this would be too soon based on when the prescription was written. I'm guessing that he meant he started 17.5 mg on 08/31. He should be due to reduce to 15 mg daily ~09/14. Pain. PRN tylenol, prn oxycodone 5 mg q6h PRN. Bowel meds ordered. Monitor oxy use in renal failure and change to Dilaudid if experiencing increased somnolence/high usage. CAD, HFpEF, mechanical AVR. Torsemide reduced to 60 mg PO daily (from 60 mg BID). Holding metoprolol. On asa, Lipitor 80 mg daily, warfarin with heparin bridge. Warfarin monitoring: Home warfarin dose is 2 mg daily. Missed dose on 09/02. INR remains 1.9. Will increase warfarin to 3 mg this evening. T2DM. Hypoglycemic this morning. Insulin NPH adjusted to 30 units AM, 5 units PM (home dose 05/09) per DCS. Also on moderate aspart correction TIDm. A1c 7.5%. Mouth ulcers: Thought to be due to steroids. Treating symptomatically with magic mouthwash QID. Beatriz Taveras Pharm.D., R.Ph., BCPS [phone] * Nori Benítez M.D. - 09/06/2024 9:54 AM CDT [facility] 7 ([facility]) Progress Note SUBJECTIVE No acute events overnight. Patient is seen in the medical floor room along with his son Mr. Lionel Harris. Patient has two oral ulcers on the left cheek, 1 large and 1 significantly smaller. His weight is going up and his creatinine is downtrending and hence we are going to resume his torsemide but at once a day regimen rather than twice daily regimen. We also talked about the INR and Coumadin because for some reason patient's spouse thought that it was only heparin that was ongoing with Coumadin being stopped. We once again clarified the rational for avoiding cardiac MRI during inpatient stay to ensure stability for fruitful images. I have reviewed the current medication list. OBJECTIVE VITAL SIGNS Temperature: [36.5 ??C-36.7 ??C] 36.5 ??C Heart Rate: [70] 70 Resp Rate: [16-17] 17 Blood Pressure: (127-153)/(68-77) 153/68 SpO2: [96 %-98 %] 98 % Weight: [82.5 kg-83.6 kg] 83.6 kg BMI (Calculated): [27.2 kg/m??-27.6 kg/m??] 27.6 kg/m?? Pulse Rate: [70-89] 89 PHYSICAL EXAMINATION General: Elderly appearing male, resting comfortably, no acute distress Neuro: Alert and oriented x 3 Cardiac: RRR, S1 and S2 present, no rub/murmur/gallop Respiratory: Bilateral breath sounds CTA, symmetrical chest expansion, easy, unlabored, no accessory muscle use, room air Abdomen: Soft, nontender, nondistended, active bowel sounds throughout Skin: Bilateral lower extremity wrapped in bandages. Psych: Calm, cooperative, normal mentation, normal affect DIAGNOSTICS I have independently reviewed labs over last 24 hours. ASSESSMENT / PLAN Mr. Harris is hospitalized on [facility] Medicine 7 ([facility]) for evaluation and management of Cellulitis. Jong Harris is a 74 y.o. male patient who presented to the Medical Intensive Care Unit (MICU) from [facility] via ground ambulance after presenting to their Emergency Department for evaluation of fatigue, weakness, increased right lower extremity pain and redness. Symptoms began themorning of September 02, 2024. Medical comorbidities included CABG and AVR (2022), Postoperative restrictive pericarditis, Hypertension, Hyperlipidemia, T2DM, Lower extremity cellulitis (Positive swab for Pseudomonas) CKD and history of CVA. Recent pertinent history includes admission to the Cardiology Services on August 27, 2024 for heart failure exacerbation as well as lower extremity edema and cellulitis. Patient was discharged home on August 31, 2024 with instructions to increase his Torsemide to 60 mg twice daily as well as to start Duricef for his right lower extremity cellulitis. In the Emergency Department at [place], patient was found to be hypotensive (80's/40's). For this reason, patient was given 500 ml of crystalloids followed by the initiation of Norepinephrine. Labs in the Emergency Department were significant for an elevated white count at 15.90 and C-reactive of 2.9. US of the bilateral lower extremities was negative. Patient was given a dose of Clindamycin for his right lower extremity cellulitis. Upon arrival to the medical intensive care unit, he was rapidly titrated off of Norepinephrine support and continued on Piperacillin-Tazobactam and Vancomycin for bilateral lower extremity cellulitis. His home Prednisone was resumed for his restrictive pericarditis but his Colchicine was held due tosignificant acute kidney injury. Due to continued stability, he was transferred to a general medicine service on 09/04/2024. # Bilateral Lower Extremity Cellulitis # Previous BLE Cellulitis positive for Pseudomonas - Blood cultures 08/29 and 09/02: NGTD - UA negative for UTI features - Antibiotics: - Piperacillin-Tazobactam (09/02 - EOT 09/08) - Vancomycin was discontinued on 04 September. Wound care ongoing. Patient received pain medications prior to the wound care. 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 In the ICU, he is creatinine had definitely arose up but it is downtrending. This is downtrending consistently. # Benign prostatic hyperplasia, continuing tamsulosin and finasteride # Diabetes mellitus, type 2, preadmission, A1c 7.5% on 07/29/2024 (6.2% on 08/22/2023) DCS consulted. # CVA with residual right hemiplegia # Restless leg syndrome Continue ropinirole. # Persistent thrombocytopenia Patient has had persistent thrombocytopenia in the past but it is definitely on the lower trend this time around. It does not appear that the patient and his spouse we are aware of the diagnosis. It is certainly not something that we need to worry about but I will start with some basic workup such as getting a peripheral blood smear. Diet: Adult Diet Regular; 60 gm Carbs (per meal) Tubes/lines: Lines, Drains, and Airways Peripheral IV Duration Peripheral IV 09/02/24 20 G Posterior;Right Hand 3d 10h Peripheral IV 09/02/24 22 G Anterior;Distal;Left;Lower Forearm 3d 10h Wound Duration Wound 08/28/24 Other (comment) Leg Circumferential;Lower;Bilateral Bilateral Lower Leg Edema with multiple blisters 9d 1h Wound 09/02/24 Cellulitis Leg Bilateral 3d 12h VTE prophylaxis: therapeutic anticoagulation Current Activity/Mobility: BMAT Level 3 (Able to stand but cannot walk; needs staff assist + safetyequipment) Fall Injury Prevention: I have discussed My Plan for Safe Activity with the patient. Disposition: Uncertain Stable to discharge criteria (not yet met): Tests/procedures/consults and Acute care monitoring needs I personally spent a total of 35 minutes providing and coordinating care today. * Haily Barkley M.D. - 09/06/2024 8:07 AM CDT DIABETES CONSULTING SERVICE PROGRESS NOTE SUBJECTIVE LOS: 4 days CHIEF COMPLAINT/REASON FOR VISIT DCS continues to follow this 74 y.o. male for diabetes admitted on 09/02/2024 for septic shock secondary to right lower extremity cellulitis, on zosyn til 09/08 . Was initially admitted to the ICU and then was transferred to the floor on 09/04 due to continued stability. . HISTORY OF PRESENT ILLNESS Patient is in no acute distress.. He did not feel hypoglycemic symptoms this morning. PREADMISSION THERAPY: -- Insulin NPH 30 units in AM and 20 units in PM, has previously trialed medications like metforminfor diabetes control in the past -- Had 30 units of NPH yesterday morning and 10 units of NPH yesterday evening. Had a total of 27 units of short acting insulin yesterday morning. . HOSPITAL COURSE: Blood Glucose Results in Last 24 Hours - Recent Results (from the past 24 hours) Heparin Anti-Xa Assay Collection Time: 09/05/24 5:39 PM Result Value Heparin Anti-Xa, P 0.38 Glucose, POCT Collection Time: 09/05/24 5:40 PM Result Value Glucose, POCT, B 367 (H) Site Capillary Last Intake 3-4 hours Glucose, POCT Collection Time: 09/05/24 9:14 PM Result Value Glucose, POCT, B 320 (H) Site Capillary Last Intake 3-4 hours Heparin Anti-Xa Assay Collection Time: 09/06/24 12:59 AM Result Value Heparin Anti-Xa, P 0.31 Prothrombin Time (PT) Collection Time: 09/06/24 7:20 AM Result Value Prothrombin Time, P 21.3 (H) INR 1.9 CBC without Differential Collection Time: 09/06/24 7:20 AM Result Value Hemoglobin 11.0 (L) Hematocrit 34.6 (L) Erythrocytes 3.84 (L) MCV 90.1 RBC Distrib Width 15.9 (H) Platelet Count 87 (L) Leukocytes 11.9 (H) Basic Metabolic Panel Collection Time: 09/06/24 7:20 AM Result Value Potassium, S 4.7 Sodium, S 136 Chloride, S 98 Bicarbonate, S 28 Anion Gap 10 BUN (Blood Urea Nitrogen), S 81 (H) Creatinine 2.70 (H) Estimated GFR (eGFR) 24 (L) Calcium, Total, S 8.6 (L) Glucose, S 62 (L) Magnesium Collection Time: 09/06/24 7:20 AM Result Value Magnesium, S 2.7 (H) Phosphorus Inorganic Collection Time: 09/06/24 7:20 AM Result Value Phosphorus (Inorganic), S 3.1 Heparin Anti-Xa Assay Collection Time: 09/06/24 7:20 AM Result Value Heparin Anti-Xa, P 0.35 Morphology Eval (special smear) Collection Time: 09/06/24 7:20 AM Result Value Neutrophilic Segs and Bands 80 (H) Lymphocytes 9 (L) Monocytes 10 Eosinophils 1 Interpretation See Comment Reviewed by: Tech Glucose, POCT Collection Time: 09/06/24 7:51 AM Result Value Glucose, POCT, B 66 (L) Site Capillary Last Intake 1-2 hours Glucose, POCT Collection Time: 09/06/24 9:23 AM Result Value Glucose, POCT, B 149 (H) Site Capillary Last Intake 1-2 hours Glucose, POCT Collection Time: 09/06/24 12:17 PM Result Value Glucose, POCT, B 153 (H) Site Capillary Last Intake 3-4 hours Yesterday received NPH 40u AM, 15u PM. Total of 16 units of short acting insulin yesterday morning. Steroids: Prednisone normally on 15 mg prednisone daily which started on 08/31, but he received 17.5 mg of prednisone yesterday . The prednisone is for his pericarditis. Current Diet Adult Diet Regular; 60 gm Carbs (per meal) starting at 09/02 2222 OBJECTIVE VITAL SIGNS Temperature: 36.5 ??C Heart Rate: 70 Resp Rate: 17 Blood Pressure: 153/68 BP Location: Right arm;Upper SpO2: 98 % BMI (Calculated): 27.2 kg/m?? Height: 174 cm Weight: 82.5 kg Body mass index is 27.25 kg/m??. DIAGNOSTICS Lab Results Component Value Date CREATININE 2.79 (H) 09/05/2024 Estimated Creatinine Clearance: 27.9 mL/min (A) (by C-G formula based on SCr of 2.79 mg/dL (H)). ASSESSMENT / PLAN #1 Diabetes mellitus, type 2, preadmission hyperglycemia, A1c 7.5%, Steroid induced hyperglycemia. 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 Was initially admitted to the ICU and then was transferred to the floor on 09/04 due to continued stability. DCS has been consulted for diabetes management. Of note, per chart review patient had been taking 15 mg prednisone daily since 08/31, but has been receiving 17.5 mg of prednisone since 09/03. Glucose levels have varied widely. Daytime readings are high with steroid, but have dropped to hypoglycemic through the nighttime. He denies symptoms of low blood sugar. To prevent any additional hypoglycemic episodes, we ask that his nurses please not give him short acting correction at bedtime. We will adjust to NPH 30 units in AM and NPH 5 units in PM. We have adjusted time of NPH in PM to be given at evening meal instead of at bedtime. PLAN: - Blood Glucose Monitoring: four times daily before meals and bedtime. - Glucose Goal: 140-180 mg/dL. - Basal: NPH 30/5.. - Mealtime: Will continue to assess if mealtime insulin is needed.. - Correction Scale: NovoLog individualized correction scale (140-179= 0 units; 180-219= 2 units; 220-259= 4 units; 260-299= 6 units; 300-339= 8 units; 340-379= 10 units; 380-399= 12 units). - DCS will evaluate and adjust insulin doses as indicated to achieve glycemic goal. ANTICIPATED DISMISSAL PLAN: Preadmission regimen with dose adjustment. Will continue to assess.. Blood Glucose Frequency: daily. Goal: 100-140 mg/dL. Please page DCS within 24 hours prior to hospital dismissal for final dismissal recommendations. Discussed above plan with patient who is alert and oriented, and in agreement. DCS Resident Pager [phone] will continue to follow. Call primary service for diabetes concerns between 6:30 p.m. to 6:30 a.m. Primary service to contact DCS via hospital scanner operator for questions. Haily Barkley MD PGY-1 Pager: [phone] * Sabina Sahu M.S., P.T. - 09/05/2024 1:28 PM CDT Wound Therapy Inpatient Treatment Note SUBJECTIVE Patient's Name: Jong Harris Referring/Attending Provider: Nori Benítez M.D. Medical Diagnosis: Severe Sepsis With Septic Shock (HCC) [R65.21] Sepsis (HCC) [A41.9] Reason for Referral: PMR wound assess and treat-bilateral lower extremities Onset Date: 09/02/24 Payor: [facility] / Plan: [employer] MEDICARE ADVANTAGE PPO / Product Type: PPO / Family/Caregiver Present: Yes (spouse) Patient/Caregiver Goals: Wound healing Patient Comments: Patient located on [facility] and was seated in the bedside chair with his legs elevated; consent obtained. Patient endorsed pain with interventions, but tolerated session well. OBJECTIVE Treatment: Modality: Non-contact low frequency ultrasound x 8 minutes Debridement: Mechanical debridement performed with fluffed gauze. Dressings: Mepilex Ag (ABD on right), Kerlix Or Vashe soak (x15 minutes) applied following advanced modality use; completion of wound dressing application afterwards. Position: Patient was in seated position with LE's elevated for treatment session. Education provided to patient regarding mist ultrasound and plan of care. Communication and collaboration occurred with patient's nurse regarding plan of care. Team Communication: Patient's nurse was contacted and patient's status was discussed Assessment Comorbid Conditions: Diabetes, Cancer, Cerebrovascular accident, Cardiopulmonary disease Personal Factors: Age Wound Care Discharge Needs: Ongoing wound care management by patient and/or caregiver., No ongoing therapeutic technologies required at discharge for wound care. Clinical Impression: Patient presents with deroofed bullae on bilateral lower extremities. There was a significant bioburden in the posterior right leg wound as well as the left distal/medial wound. Dressings were saturated upon removal with no odor present; added ABD to the right LE. Able to remove a minimal amount ofnonviable tissue with mechanical debridement. Will continue daily x5 then reassess. Rehab Potential: Mr. Harris has excellent potential to achieve established wound therapy goals within the time frame outlined below. Functional Goals and Timeframes: Goal #1: WD: Right leg wound size will decrease 10% by goal review date in order to advance to proliferative phase of healing. (3.4x5.5cm) Goal #1 Date: 09/11/24 Goal #1 Status: Slowly progressing Goal #2: WD: Left leg wound size will decrease 10% by goal review date in order to advance to proliferative phase of healing.(5x6cm) Goal #2 Date: 09/11/24 Goal #2 Status: Slowly progressing Progress: Progressing toward goals Plan Patient agrees with the plan of care and goals. Treatment Plan: Frequency: 5 times per week Days of Treatment: , Sunday, Sunday, Sunday, Sunday PT Wound Duration: Until goals are met or hospital discharge PT - Next Inpatient Wound Care Appointment: 09/06/24 Plan: Continue with current plan Wound PT Plan Comments: WD: Patient will continue non-contact low frequency ultrasound, debridementand wound cares daily x5 days (until 09/08) after which time frequency will be reassessed pending wound response and hospital course. Treatment interventions may include: Wound cares, Offloading, Debridement, Wound dressing assessment, Therapeutic modalities as needed, Self-care/home management Time Spent with Patient Modalities Ultrasound - low freq, non-thermal (min): 22 min Time Tracking Total Timed Units (min): 22 min Total Treatment Time (min): 22 min Sabina Sahu M.S., P.T. * Nori Benítez M.D. - 09/05/2024 12:12 PM CDT RST Medicine 7 ([facility]) Progress Note SUBJECTIVE No acute events overnight. Patient is seen in the medical floor room along with Medicine 7 team along with patient's spouse by the bedside. Patient feels that his right lower extremity is getting more swollen especially around the knee region. He is worried about his heart failure. I have reviewed the current medication list. OBJECTIVE VITAL SIGNS Temperature: [36.5 ??C-36.6 ??C] 36.5 ??C Resp Rate: [16-18] 17 Blood Pressure: (124-150)/(62-86) 146/86 SpO2: [96 %-98 %] 96 % Weight: [82.8 kg] 82.8 kg BMI (Calculated): [27.4 kg/m??] 27.4 kg/m?? Pulse Rate: [75-80] 80 PHYSICAL EXAMINATION General: Elderly appearing male, resting comfortably, no acute distress Neuro: Alert and oriented x 3, follows commands, moves all extremities, sensation intact, no numbness/tingling Cardiac: RRR, S1 and S2 present, no rub/murmur/gallop Respiratory: Bilateral breath sounds CTA, symmetrical chest expansion, easy, unlabored, no accessory muscle use, room air Abdomen: Soft, nontender, nondistended, active bowel sounds throughout Skin: Bilateral lower extremity wrapped in bandages. Psych: Calm, cooperative, normal mentation, normal affect DIAGNOSTICS I have independently reviewed labs over last 24 hours. ASSESSMENT / PLAN Mr. Harris is hospitalized on [place] [id number] ([facility]) for evaluation and management of Cellulitis. Jong Harris is a 74 y.o. male patient who presented to the Medical Intensive Care Unit (MICU) from [facility] via ground ambulance after presenting to their Emergency Department for evaluation of fatigue, weakness, increased right lower extremity pain and redness. Symptoms began themorning of September 02, 2024. Medical comorbidities included CABG and AVR (2022), Postoperative restrictive pericarditis, Hypertension, Hyperlipidemia, T2DM, Lower extremity cellulitis (Positive swab for Pseudomonas) CKD and history of CVA. Recent pertinent history includes admission to the Cardiology Services on August 27, 2024 for heart failure exacerbation as well as lower extremity edema and cellulitis. Patient was discharged home on August 31, 2024 with instructions to increase his Torsemide to 60 mg twice daily as well as to start Duricef for his right lower extremity cellulitis. In the Emergency Department at [place], patient was found to be hypotensive (80's/40's). For this reason, patient was given 500 ml of crystalloids followed by the initiation of Norepinephrine. Labs in the Emergency Department were significant for an elevated white count at 15.90 and C-reactive of 2.9. US of the bilateral lower extremities was negative. Patient was given a dose of Clindamycin for his right lower extremity cellulitis. Upon arrival to the medical intensive care unit, he was rapidly titrated off of Norepinephrine support and continued on Piperacillin-Tazobactam and Vancomycin for bilateral lower extremity cellulitis. His home Prednisone was resumed for his restrictive pericarditis but his Colchicine was held due tosignificant acute kidney injury. Due to continued stability, he was transferred to a general medicine service on 09/04/2024. # Bilateral Lower Extremity Cellulitis # Previous BLE Cellulitis positive for Pseudomonas - Blood cultures 08/29 and 09/02: NGTD - UA negative for UTI features - Antibiotics: - Piperacillin-Tazobactam (09/02 - EOT 09/08) - Vancomycin was discontinued on 04 September. Wound care ongoing. # History of CABG and AVR (2022) # chronic Heart Failure with preserved ejection fraction secondary to Restrictive Pericarditis # Hypertension # Hyperlipidemia # Chronic Anticoagulation, on Warfarin with INR goal between 2-3 - Maintain MAP > 65 - Continue home medications: ASA 81 mg daily, Atorvastatin 80 mg daily, and Prednisone 17.5 mg daily - Hold home Colchicine until kidney function returns to baseline His blood pressures are holding up well. Low threshold to resume his diuretics. # Acute kidney injury with background of Chronic Kidney Disease stage IIIB Patient's baseline creatinine has ranged between 2.8 - 3. In the ICU, he is creatinine had definitely arose up but it is downtrending. Will continue to monitor this and consider resumption of colchicine sooner than later. # Benign prostatic hyperplasia, continuing tamsulosin and finasteride # Diabetes mellitus, type 2, preadmission, A1c 7.5% on 07/29/2024 (6.2% on 08/22/2023) DCS consulted. # CVA with residual right hemiplegia # Restless leg syndrome # Persistent thrombocytopenia Diet: Adult Diet Regular; 60 gm Carbs (per meal) Tubes/lines: Lines, Drains, and Airways Peripheral IV Duration Peripheral IV 09/02/24 20 G Left Antecubital 2d 14h Peripheral IV 09/02/24 20 G Posterior;Right Hand 2d 12h Peripheral IV 09/02/24 22 G Anterior;Distal;Left;Lower Forearm 2d 12h Wound Duration Wound 08/28/24 Other (comment) Leg Circumferential;Lower;Bilateral Bilateral Lower Leg Edema with multiple blisters 8d 4h Wound 09/02/24 Cellulitis Leg Bilateral 2d 14h VTE prophylaxis: therapeutic anticoagulation Current Activity/Mobility: BMAT Level 3 (Able to stand but cannot walk; needs staff assist + safetyequipment) Fall Injury Prevention: I have discussed My Plan for Safe Activity with the patient. Disposition: Uncertain Stable to discharge criteria (not yet met): Tests/procedures/consults and Acute care monitoring needs I personally spent a total of 50 minutes providing and coordinating care today. * Marco Jackson, Pharm.D., R.Ph. - 09/05/2024 7:15 AM CDT Pharmacist Progress Note Reason for admission: septic shock. Transfer out of ICU. PMH: heart failure secondary to constrictive pericarditis, CABG and AVR in 09/2023 on warfarin, HTN, HLD, T2DM, CKD3B, CVA w/residual hemiplegia, RLS, BPH OBJECTIVE Estimated Creatinine Clearance: 24.5 mL/min (A) (by C-G formula based on SCr of 3.14 mg/dL (H)). Home medications: per h Held: cefadroxil, Vit D, colchicine, B12, torsemide, metop Changed: insulin adjustments, prednisone Prophylaxis: warfarin ASSESSMENT / PLAN Shock, sepsis. Cefadroxil failure 08/29-09/03. On Zosyn 2.25 gm q6h for SSTI x 7 days, EOT 09/08. Vanco stopped. New MANJEET on CKD. Srcr 3.14, crcl 24 from 09/04. Holding [employer]ING SOFTWARE [employer] colchicine and torsemide. Pericarditis. Holding MANU[employer]URING SOFTWARE ENGINE[employer] colchicine for MANJEET. Tapering prednisone- currently 17.5 mg daily. Pain. PRN tylenol, prn oxycodone. Bowel meds ordered. Monitor oxy use in renal failure and change to Dilaudid if experiencing increased somnolence/high usage. CABG and mechanical AVR. Holding [employer]URING SOFTWARE ENGINE[employer] torsemide and metop. On asa, Lipitor 80 mg daily, warfarin protocol. Home warfarin dose is 2 mg daily. Missed dose on 09/02. INR 1.9. Will repeat 2 mg warfarin this evening. Evaluate starting heparin nomogram for bridging while INR <2. Not a candidate for LMWH with his renal failure. Marco Iqbal, PharmJarrettD., R.Ph. * Radha Davis M.SMame, Piedad.S.W. - 09/04/2024 2:17 PM CDT Social Work attempted to communicate with the patient by calling him multiple times throughout the afternoon on 09/04/2024. The patient did not answer. CDT * Madhavi Maloney APRN C.N.P., M.S.N. - 09/04/2024 9:58 AM CDT SUBJECTIVE Brief Summary: Jong Harris is a 74-year-old male with medical comorbidities consisting of CABG and AVR (2022) complicated by postoperative restrictive pericarditis, HTN, HLD, DM type 2, lower extremity cellulitis (Positive swab for Pseudomonas), CKD IIIB, and history of CVA with residual jamie plegia who was admitted to [facility] MICU in the setting of septic shock 2/2 lower extremity cellulitis. Interval Events: Day 09/03: -off NE -restarted home prednisone, finasteride, tamsulosin -started opioids for pain control -restarted half home dose NPH; increased to home dose in afternoon Night 09/03: - NovoLog modified to Q4H OBJECTIVE VITAL SIGNS I have reviewed the current vital sign data as applicable. PHYSICAL EXAM General: Elderly appearing male, resting comfortably, no acute distress HEENT: Pupils equally reactive 3 mm, moist mucous membranes, hearing intact, vision intact, glassespresent Neuro: Alert and oriented x 3, follows commands, moves all extremities, sensation intact, no numbness/tingling Cardiac: RRR, S1 and S2 present, no rub/murmur/gallop Respiratory: Bilateral breath sounds CTA, symmetrical chest expansion, easy, unlabored, no accessory muscle use, room air Abdomen: Soft, nontender, nondistended, active bowel sounds throughout Skin: Warm, clean, dry, intact, no visible open wounds, erythema to bilateral lower extremities, norashes Extremities: Warm, moves all extremities, bilateral lower extremity pitting edema 2+ pulses 2+ Psych: Calm, cooperative, normal mentation, normal affect DIAGNOSTICS I have reviewed relevant laboratory, imaging, and other diagnostics as applicable. ASSESSMENT / PLAN #1 Cellulitis #2 Sepsis (HCC) #3 Diabetes Mellitus Type 2 (HCC) #4 Pericarditis Constrictive (HCC) #5 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 1 To 4 Chronic Kidney Disease Or Unspecified Chronic Kidney Disease #6 Hemiplegia Dominant Side Right (HCC) #7 Coronary Artery Disease Without Angina Pectoris #8 Severe Sepsis With Septic Shock ([facility]) On exam this morning, Mr. Harris was resting comfortably. He denied all complaints. This morning,he was noted to be hypoglycemic, likely due to the increase in sliding scale frequency overnight incombination with his nocturnal NPH. We will decrease his sliding scale back to with meals and decrease his nocturnal NPH to 10 units and see how his blood glucose trends. He continues to be treated for bilateral lower extremity cellulitis with IV antibiotics but is stable for transfer to a general medicine service. Remainder of cares as outlined below. NEURO # History of CVA with Residual Hemiplegia # Restless Leg Syndrome - Monitor neuro status - Pain regimen: Acetaminophen 1 g QID PRN, Oxycodone IR 5 mg Q6H - Continue home medications: Ropinirole 0.5 mg TID CARDIAC/CV # History of CABG and AVR (2022) # Heart Failure secondary to Restrictive Pericarditis # Hypertension # Hyperlipidemia # Chronic Anticoagulation, on Warfarin - Maintain MAP > 65 - Continue home medications: ASA 81 mg daily, Atorvastatin 80 mg daily, and Prednisone 17.5 mg daily - Hold home Colchicine until kidney function returns to baseline - Fluid status: net positive 1 L since admission PULMONARY # No acute issues - Maintain SpO2 > 92% - Use supplemental oxygen as needed to maintain SpO2 goal RENAL/ # Benign Prostatic Hyperplasia # Acute Kidney Injury - Urine output 600 cc since 0000 - Goal net fluid balance: even - Renal function: creatinine 3.14, BUN 87 - Continue home Tamsulosin 0.4 mg daily and Finasteride 5 mg daily - Strict I&O and daily weight - Monitor renal function and electrolytes daily - Avoid nephrotoxins and renally adjust medications as able GI # No acute issues - Diet: Regular - Antiemetics: None - Bowel regimen: Senokot-S 1 tablet BID, Bisacodyl suppository 10 mg daily PRN, and Miralax 17 g daily PRN - GI PPX: Pantoprazole 40 mg daily - Continue daily multivitamin ID # Bilateral Lower Extremity Cellulitis # Previous BLE Cellulitis positive for Pseudomonas - Blood cultures 08/29 and 09/02: NGTD - UA negative for UTI features - Antibiotics: - Piperacillin-Tazobactam (09/02 - EOT 09/08) - Vancomycin (09/03 - EOT 09/09) HEME/ONC # No acute issues - Hgb 11.4 - No signs of active/acute bleeding - Monitor CBC daily - DVT PPX: Warfarin, dosed by pharmacy ENDOCRINE # Type 2 Diabetes # Hypoglycemia - Monitor blood glucose with meals and at bedtime - Continue moderate SSI correction with meals and at bedtime - Continue QAM 30 units NPH and decrease QPM NPH to 10 units - Add 0200 blood glucose readings - Hypoglycemia protocol ordered RHEUM/MUSK/SKIN # Bilateral Lower Extremity Cellulitis - Continue current antibiotics as listed above Prophylaxis: No GI PPX indicated, DVT PPX with Warfarin PT/OT/ST: As indicated by therapy services Code Status: Full Code Disposition: Transfer to general medicine service Family: Spouse, Lissy, listed in chart Madhavi Maloney, M.S.N, C.N.P, STAVE SAW OPERATOR * Pamela Medina Pharm.DJarrett, R.Ph., BCCCP - 09/04/2024 7:46 AM CDT Pharmacist Progress Note HPI: 74 y.o. 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 Meds adjusted: vanc/zosyn ID: 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 resolving, AF, recently diagnosed with non-purulent cellulitis of RLE with cefadroxil failure (08/29-09/03), presenting with increased redness in the area. Outside swab of RLE grew panS PSA (thought to be contaminant at the time, never treated). Started vancomycin and Zosyn here, planning for 7 days GI/Endo: T2DM on NPH [employer]UFA[employer]URING SOFTWARE ENGINEER, hypoglycemic this AM, reducing bedtime NPH, now 30 qAM/10 qHS, +BR Heme: BL LEUS negative for DVT, Plts continue to downtrend, on warfarin for AVR (09/2023), see below for plan Prophy: warfarin, PPI (home, continue while on steroids) Warfarin plan: On warfarin for mechanical AVR 09/2023, INR goal 2-3 Has been stable on warfarin 2 mg daily outpatient INR today is 2.8 from 3.2 yesterday after 1 mg last night. Only new DDI is zosyn (minor, often delayed). Patient is on an ADR. Will give 2 mg of warfarin tonight in anticipation that we may see further decline from missed warfarin dose on 09/02. Recommendations: Continue zosyn for SSTI for 7 days. MRSA NS was negative and blood cultures have remained negative x 24 hours, vancomycin has been stopped. Hypoglycemic this morning to the 60s, reducing bedtime NPH dose. Continue to monitor closely. New MANJEET on CKD, following creatinine trend. If CrCl improves > 30, can consider resuming colchicine at reduced dose of 0.3 mg daily Warfarin plan as per above Pamela Medina PharmLeonid., R.Ph., BCCCP Pager [phone] * Eze Shah M.D. - 09/04/2024 3:27 AM CDT Images from the original note were not included. Patient Name: Jong Harris : 1950 Age: 74 y.o. Gender: male Room/Bed: Counts include 234 beds at the [facility]- Date/Time of Admission: 09/02/2024 9:15 PM Hospital Day: 2 Date: 09/04/2024 SUBJECTIVE This is a supervisory note for the multidisciplinary critical care team. I have personally seen andexamined the patient, and reviewed all pertinent laboratory, vital signs and imaging data. I have reviewed the history, physical examination, impression, report, and plan with the team in detail and agree with the documentation outlined in their notes from today. Patients condition has high probability for clinically significant or life-threatening deterioration and requires the highest level of preparedness to intervene urgently. OBJECTIVE I have reviewed the current vital sign data as applicable. BP 109/58 (BP Location: Right arm;Upper, Patient Position: Semi-recumbent) Pulse 77 Temp 36.7 ??C (Oral) Resp 16 Ht 174 cm Wt 81.5 kg SpO2 99% BMI 26.92 kg/m?? ASSESSMENT / PLAN # Septic shock secondary to lower extremity cellulitis, resolved # Heart failure secondary to constrictive pericarditis # CABG (09/2023) # AVR (09/2023) # CKD stage IIIB # BPH # History of CVA # Hypertension # Hyperlipidemia # Type 2 diabetes mellitus # Code status: Full code Jong Harris is a 74 y.o. male admitted to the ICU on 09/02/2024 9:15 PM for septic shock secondary to lower extremity cellulitis. Medical comorbidities are most significant for CABG and AVR (2022) c/b postoperative restrictive pericarditis, HTN, HLD, DM type 2, lower extremity cellulitis (positive swab for Pseudomonas), CKD IIIB, and history of CVA with residual hemiplegia. He had no acute events overnight. He remained hemodynamically stable and is having excellent oxygensaturations on room air. Yesterday, he achieved a at positive fluid balance of 780 ml. He remains afebrile and continues on antimicrobial coverage with vancomycin and zosyn. Overall, given his significant improvement, he may be stable to transfer to the general floor later today. PLAN: -- Closely monitor hemodynamics. MAP goal > 65. -- Continue to monitor respiratory status. Provide supplemental oxygen as needed. -- Continue to monitor urine output and optimize volume status. Monitor electrolytes and replenish as appropriate. -- Continue broad-spectrum antibiotics with vancomycin and zosyn. Follow microbiology data. -- Continue steroids for pericarditis, hold colchicine given acute kidney injury -- Therapeutic anticoagulation with home warfarin -- Supportive cares -- Liaise with the family -- Stable to transfer to the general floor Remaining issues per the systems-based plan outlined in the ICU notes from today. CC time 40 min Eze Shah M.D. Instruments Sales Representative [employer] Division of Pulmonary and Critical Care Medicine [facility] * Duthc Moran, RJarrettN., C.W.C.N. - 09/03/2024 9:51 AM CDT [facility] Wound RN consulted to assess Jong D Steven skin alterations. Wound assessment, pain, and Piter score noted in the flowsheet. The patient consented to photography of the affected area for clinical trending purposes. Images were taken and are available in QREADS. History: Per provider note, the patient was admitted to the hospital for septic shock 2/2 lower extremity cellulitis. Assessment: The patient was agreeable to the [facility] nurse assessment while in bed and with his primaryRN and son at the bedside. The patient has bullae to the BLE which have deroofed or are in the process of being deroofed. Usually the preferred method is to leave the bullae in place in hopes of them being reabsorbed but this was not the case for the patient. The bullae with the pediculus remaining were removed as purulent exudate was noted underneath. The revealed wounds beds are mixed with either healthy viable tissue orhave yellow suspected biofilm. The surrounding periwound has severe edema, 10/10 pain on palpation,and the associated erythema has spread past the previously marked borders. A pseudomonas swab has came back positive. There is also a mild odor noted 10/23/24 0915 Pain Assessment Resp Rate (!) 25 Wound 09/02/24 Cellulitis Leg Bilateral Date First Assessed/Time First Assessed: 09/02/242138 Present on Original Admission: Yes Primary Wound Type: Cellulitis Location: Leg Wound Location Orientation: Bilateral *Shape Irregular *Tunneling none *Signs of Infection Drainage;Erythema;Odor;Pain Unable to Measure Y *Wound Bed Open;Necrotic;Red;Yellow Odor Mild *Exudate Amount Moderate Drainage Description Serous;Yellow Gauri-wound Assessment Edema;Painful Treatments Cleansed Periwound Treatment Cleansed (Comment) Wound Cleansed with Wound cleanser *Primary Dressing Foam *Primary Dressing Frequency of Change Daily & PRN Primary Dressing Changed New Primary Dressing Status Intact *Secondary Dressing Gauze *Secondary Dressing Frequency of Change Daily & PRN Secondary Dressing Changed New Secondary Dressing Status Intact Changed by Wound transfer table operator helper Ongoing management Nursing;Wound/hand i cutter Focused assessment completed DRESSING RECOMMENDATIONS: #1 Cellulitis Leg Bilateral -Wrap the legs in a Vashe moistened WyPalls for 5-15 minutes -After Vashe soaks, exfoliate with Debrisoft. -Apply a Mepilex Ag foam and secure with Kerlix wrapping. -Change once daily and PRN. *If edema is noted, follow the compression algorithm (compression to be started 24 hours after abx start) Recommended interventions for pressure redistribution and shear reduction: Offload heels on pillows at all times when in bed. Full 30 degree turns side to side every 2 hours with supine positioning only for meals. Reposition at least every hour while in the chair. Reposition medical devices per policy. Assess and pad the skin under and surrounding the medical devices with a prophylactic foam dressing. Keep the HOB below 30 degrees except for meals unless medically contraindicated. Apply a prophylactic sacral Mepilex?? border dressing to cover the coccyx/sacral area. Ensure the dressing is in full contact with the skin to prevent moisture- related skin breakdown. Lift twice daily to assess when used for prevention. Change every 3 days and PRN. Apply prophylactic Mepilex?? heel borders. Lift twice daily to assess the skin when used for prevention. Change every 3 days and PRN. Apply a prophylactic foam dressing to the bridge of the nose. Utilize padding (Artiflex or Rosidal foam) under compression wraps. Recommended interventions for moisture control: InterDry?? Ag placed between folds. Allow at least 2 inches of fabric exposed to air on at least one side of the skin fold for moisture evaporation. Can be used up to 5 days unless soiled with stool or urine. Do not rinse with water. Cleanse with foaming cleanser or wipes after each incontinence episode and for routine hygiene cares. Consult recommendations: Physical therapy was consulted to assess for advanced wound therapies. Education: Discussed the plan of care with the patient and nursing. They agree to the plan. The [facility] RN will continue to see the patient, contact or reconsult for worsening wounds or new wounds. * Pamela Medina, Pharm.D., R.Ph., [facility] - 09/03/2024 9:43 AM CDT Images from the original note were not included. Admission Medication History Note Adherence issues: No concerns Medication list source: Patient, Care Everywhere or chart review, and Pharmacy or dispense records Medication related information: - Added back colchicine and PPI - Patient is currently on 15 mg prednisone daily which started on 08/31 Prior to Admission Medications Med List Status: Pharmacy Complete Set By: Pamela Medina Pharm.DJarrett, R.Ph., [facility] at 09/03/2024 9:43 AM Taking? Last Dose Informant Start Date End Date LT acetaminophen (TylenoL) 500 mg tablet -- -- 08/31/24 -- Take 2 tablets (1,000 mg total) by mouth every 6 (six) hours as needed for pain. alcohol swabs pads, medicated -- -- 08/01/24 -- Use as needed for diabetes control Notes: DX: Diabetes Mellitus Type 2 - E11.9. Pharmacist may substitute brand, needle/syringe size of diabetic supply or adjust quantities down per patient preference or insurance coverage. aspirin 81 mg chewable tablet 09/02/2024 -- 09/26/23 09/25/24 Chew 1 tablet (81 mg total) daily. atorvastatin (LIPITOR) 80 mg tablet 09/02/2024 -- 09/26/23 09/25/24 Take 1 tablet (80 mg total) by mouth at bedtime. blood glucose control high,low (Accu-Chek Guide L1-L2 Ctrl Nimo) solution -- -- 08/01/24 -- Glucose control solution provides an easy way to ensure accurate blood glucose testing. Notes: DX: Diabetes Mellitus Type 2 - E11.9. Pharmacist may substitute brand, needle/syringe size of diabetic supply or adjust quantities down per patient preference or insurance coverage. blood sugar diagnostic strips -- -- 08/01/24 08/01/25 2 test daily. Notes: DX: Diabetes Mellitus Type 2 - E11.9. Pharmacist may substitute brand, needle/syringe size of diabetic supply or adjust quantities down per patient preference or insurance coverage. blood-glucose meter misc -- -- 08/01/24 -- Test as directed for diabetes control. Notes: DX: Diabetes Mellitus Type 2 - E11.9. Pharmacist may substitute brand, needle/syringe size of diabetic supply or adjust quantities down per patient preference or insurance coverage. cefadroxil (Duricef) 500 mg capsule -- -- 08/31/24 09/07/24 Take 1 capsule (500 mg total) by mouth daily for 7 days Indications: Skin and soft tissue infection. cholecalciferol 10 mcg (400 Unit) tablet -- -- -- -- Take 10 mcg by mouth daily. colchicine (Colcrys) 0.6 mg tablet -- -- -- -- Take 0.6 mg by mouth daily. cyanocobalamin 2,000 mcg tablet -- -- -- -- Take 2,000 mcg by mouth daily. finasteride (PROSCAR) 5 mg tablet -- -- 09/26/23 -- Take 1 tablet (5 mg total) by mouth daily. insulin NPH (NovoLIN N FlexPen) 100 unit/mL (3 mL) pen -- -- 08/04/24 -- Inject 25 units subcutaneously in the morning and 10 units in the evening. Call in for dose adjustment Patient taking differently: Inject 30 units subcutaneously in the morning and 20 units in the evening. Call in for dose adjustment lancets -- -- 08/01/24 08/01/25 2 each daily. Notes: DX: Diabetes Mellitus Type 2 - E11.9. Pharmacist may substitute brand, needle/syringe size of diabetic supply or adjust quantities down per patient preference or insurance coverage. metoprolol succinate (TOPROL-XL) 50 mg 24 hr tablet -- -- 12/20/23 -- Take 1 tablet by mouth daily. pantoprazole (Protonix) 40 mg EC tablet -- -- -- -- Take 40 mg by mouth daily before morning meal. pen needle, diabetic (BD Ultra-Fine Short Pen Needle) 31 gauge x 5/16 needle -- -- 08/01/24 08/01/25 2 Injection daily. Notes: DX: Diabetes Mellitus Type 2 - E11.9. Pharmacist may substitute brand, needle/syringe size of diabetic supply or adjust quantities down per patient preference or insurance coverage. predniSONE (Deltasone) 5 mg tablet -- -- 08/01/24 11/09/24 Take 4 tablets (20 mg) by mouth daily for 28 days, THEN 3.5 tablets (17.5 mg) daily for 14 days, THEN 3 tablets (15 mg) daily for 14 days until pericardial appt. Further dose to be decided at appt. DO NOT STOP TAKING ABRUPTLY Notes: Started 15 mg daily dose on 08/31 rOPINIRole (REQUIP) 0.5 mg tablet -- -- 09/26/23 -- Take 1 tablet (0.5 mg total) by mouth 3 (three) times a day. tamsulosin (FLOMAX) 0.4 mg 24 hr capsule -- -- 09/26/23 -- Take 1 capsule (0.4 mg total) by mouth at bedtime. torsemide (Demadex) 20 mg tablet -- -- 08/31/24 -- Take 3 tablets (60 mg total) by mouth 2 (two) times a day. warfarin (Jantoven) 1 mg tablet 09/01/2024 -- 08/01/24 -- Take 2 mg daily until your INR check with Anticoagulation Clinic Notes: 2 mg daily * Pamela Medina Pharm.D., R.Ph., [facility] - 09/03/2024 6:59 AM CDT Pharmacist Progress Note HPI: 74 y.o. 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 Meds adjusted: vanc/zosyn ID: 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, AF, recently diagnosed with non-purulent cellulitis of RLE and treated with Anceftransitioned to cefadroxil (08/29-09/03), presenting with increased redness in the area. Outside swab of RLE grew PSA (thought to be contaminant at the time, never treated). Started vancomycin and Zosyn here. Working on obtaining susceptibilities form OSH. GI/Endo: T2DM on NPH 30 qAM/20 qPM [employer]UFA[employer]URING SOFTWARE ENGINE[employer], Mod SSI + NPH 15/10 BID started here, follow and adjust as necessary, +BR Heme: BL LEUS negative for DVT, Plt 85 this morning, on warfarin for AVR (09/2023), INR this morning 3.2 after not receiving his dose yesterday. Home dose is 2 mg daily. Prophy: warfarin, PPI (home, continue while on steroids) Vancomycin Plan: Intermittent vancomycin dosing for SSTI Received vancomycin 1500 mg x 1 dose on 09/03 at 0000 24 hour level planned for 09/04 at 0000 to assess [place] clearance The overnight pharmacist will follow up and re-dose as necessary Warfarin plan: On warfarin for mechanical AVR 09/2023, INR goal 2-3 Has been stable on warfarin 2 mg daily outpatient INR today is 3.2 from 2.8 yesterday after no dose of warfarin yesterday. Only new DDI is zosyn (minor, often delayed). Patient is on an ADR. Will give warfarin 1 mg tonight and follow trend. Recommendations: Continue vancomycin/zosyn for SSTI for now. If blood cultures remain negative x 24-48 hours, may beable to discontinue vancomycin. Outside hospital will be faxing pseudomonas susceptibilities reporttoday. New MANJEET on CKD, following creatinine trend. If Scr improves tomorrow, can consider resuming colchicine at reduced dose of 0.3 mg daily Monitor platelet trend, 85 today. Resuming warfarin tonight as per above plan. Pamela Medina, Luis Carlos.D., R.Ph., [facility] Pager [phone] ADDENDUM 09/04/24 2:09 AM CDT Pharmacokinetic Consult - Vancomycin Dosing Jong Harris is a 74 y.o. male who has received a pharmacy consult for vancomycin therapy fordose optimization and monitoring. Indication: SSTI Goal trough: 10-15 mcg/mL OBJECTIVE Relevant clinical data and objective history reviewed: Temp (24hrs), Av.7 ??C, Min:36.1 ??C, Max:37.2 ??C Creatinine (mg/dL) Date Value Status 09/03/2024 3.35 (H) Final 09/02/2024 3.34 (H) Final 08/31/2024 3.19 (H) Final 08/30/2024 3.06 (H) Final Estimated Creatinine Clearance: 22.6 mL/min (A) (by C-G formula based on SCr of 3.35 mg/dL (H)). Concurrent antimicrobials: piperacillin-tazobactam, 2.25 g, Q6H vancomycin, 1,500 mg, Once Risks for vancomycin associated nephrotoxicity: Vancomycin trough goal level 15-20 mcg/mL: NO Vancomycin daily dose >/= 4 gm/day: NO Critical illness (hemodynamically unstable, on pressors): YES Increase in Scr (>/= 25%): YES Concurrent nephrotoxic medications (previous 24 hours): NO BMI >/= 40: NO ASSESSMENT / PLAN Day 2 vancomycin. Unstable estimated creatinine clearance. Noted 2 risk factor(s) for vancomycin associated nephrotoxicity. Based on indication, target vancomycin level is 10-15 mcg/mL. Vancomycin pre-steady state level was assessed and was sub-therapeutic. Will provide vancomycin 1500 mg IV once now, and re-assess daily based on renal function. Denisa Roca PharmLeonid., R.Ph. Denisa Roca Pharm.D., R.Ph. 09/04/24 0214 * Emory Glasgow P.A.-C. - 09/03/2024 6:10 AM CDT SUBJECTIVE Brief Summary: Jong Harris is a 74 y.o. male with past medical history significant for CABG and AVR (2022) c/b postoperative restrictive pericarditis, HTN, HLD, DM type 2, lower extremity cellulitis (Positive swab for Pseudomonas), CKD IIIB, and history of CVA with residual hemiplegia who was admitted to [facility] MICU in the setting of septic shock 2/2 lower extremity cellulitis. Interval Events: Night 09/02/24 - Admitted to MICU - Zosyn and vancomycin - LRINEC 9 - Given 1L of LR OBJECTIVE I have reviewed the current vital sign data as applicable. PHYSICAL EXAM General: lying in bed, no acute distress, cooperative, family at bedside HEENT: Normocephalic, atraumatic. PERRL, EOMi. MMM. CV: RRR. Normal S1, S2 click (mechanical valve). No murmurs. Lungs: CTA- bilaterally. No wheezes, rhonchi, rales. No increased work of breathing. On room air Abdomen: Normal bowel sounds. Soft, NTTP. No guarding, rebound, rigidity. Skin/extremities: Warm, rash on bilateral lower extremities with blisters. Moves all extremities spontaneously. Pulses +2 in all four extremities. +1 lower extremity pitting edema. Neuro: A&Ox3. No acute focal neurologic deficits. Strength 5/5 in all four extremities. DIAGNOSTICS I have reviewed relevant laboratory, imaging, and other diagnostics as applicable. 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 male with past medical history significant for CABG and AVR (2022) c/b postoperative restrictive pericarditis, HTN, HLD, DM type 2, lower extremity cellulitis (Positive swab for Pseudomonas), CKD IIIB, and history of CVA with residual hemiplegia who was admitted to [facility]U in the setting of septic shock 2/2 lower extremity cellulitis. Overall, Mr. Harris is improving from a blood pressure standpoint. This morning he was able to come off norepinephrine. I am slightly concerned that his rash has expanded compared to last night, wewill plan to trend this throughout the day. We will continue to broadly cover with vancomycin and Zosyn given his history of growing Pseudomonas and blistering of his skin. We will also reach out to [facility] to acquire the susceptibilities of his prior early grown Pseudomonasand determine if he had positive blood cultures with the Pseudomonas in the past. With regards to his pericarditis, we will restart his prednisone at 17.5 mg today, but given his MANJEET we will hold his colchicine. As his kidney function improves, we will reassess daily timing of colchicine resumption. For further details regarding my plan, please see below. 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 #CABG (09/2023) #AVR (09/2023) #HTN #HLD -continue norepinephrine for map goal > 65 -continue aspirin 81 mg daily -continue atorvastatin 80 mg qHS -restart home prednisone 17.5mg daily -hold home colchicine 0.6mg daily until improvement of kidney function -hold home metoprolol 50mg daily -hold home torsemide 60mg BID -EKG (10/04): NSR GI #Nutrition -regular diet, 60 g carb restriction -Bowel regimen: senokot-S 1tab BID; polyethylene glycol daily PRN, bisacodyl suppository daily PRN PPI prophylaxis: none indicated /Renal #CKD stage IIIB #BPH -hold home finasteride 5mg daily -hold home tamsulosin 0.4mg qHS -bladder scans PRN -Avoid nephrotoxic medications when possible -Follow electrolytes daily -strict I&Os Heme #anticoagulation status -continue warfarin for INR target 2-3 DVT prophylaxis: Warfarin as above Infectious Disease #cellulitis -WBC: 24.5 from 25.5 yesterday -Blood Cx (09/02): pending -send urinalysis -Antibiotics: Continue Zosyn 2.25g q6hrs x7d (09/02-09/08) and vancomycin per pharmacy dosing x7d or if negative blood cultures on 09/04 Endocrine #DM type 2 -Glucose checks -restart half home dose NPH, will escalate if poor glucose control -Medium dose SSI Access -PIV 20G left AC -PIV 20G right AC -PIV 22G left arm -PIV 20G right hand CODE STATUS: FULL CODE Dispo -MICU level of care Electronically signed by: Emory Glasgow P.A.-C. 09/03/24 6:36 AM CDT * Eze Shah M.D. - 09/03/2024 4:09 AM CDT Images from the original note were not included. Patient Name: Jong Harris : 1950 Age: 74 y.o. Gender: male Room/Bed: 576/576-P Date/Time of Admission: 09/02/2024 9:15 PM Hospital Day: 1 Date: 09/03/2024 SUBJECTIVE This is a supervisory note for the multidisciplinary critical care team. I have personally seen andexamined the patient, and reviewed all pertinent laboratory, vital signs and imaging data. I have reviewed the history, physical examination, impression, report, and plan with the team in detail and agree with the documentation outlined in their notes from today. Patients condition has high probability for clinically significant or life-threatening deterioration and requires the highest level of preparedness to intervene urgently. OBJECTIVE I have reviewed the current vital sign data as applicable. BP 101/63 Pulse 75 Temp 36.1 ??C (Axillary) Resp 20 Ht 174 cm Wt 80.2 kg SpO2 97% BMI26.49 kg/m?? ASSESSMENT / PLAN # Septic shock secondary to lower extremity cellulitis, resolved # Heart failure secondary to constrictive pericarditis # CABG (09/2023) # AVR (09/2023) # CKD stage IIIB # BPH # History of CVA # Hypertension # Hyperlipidemia # Type 2 diabetes mellitus # Code status: Full code Jong Harris is a 74 y.o. male admitted to the ICU on 09/02/2024 9:15 PM for septic shock secondary to lower extremity cellulitis. Medical comorbidities are most significant for CABG and AVR (2022) c/b postoperative restrictive pericarditis, HTN, HLD, DM type 2, lower extremity cellulitis (positive swab for Pseudomonas), CKD IIIB, and history of CVA with residual hemiplegia. He had no acute events overnight. He remained hemodynamically stable and is no longer requiring vasoactive medications this morning. He is currently having excellent oxygen saturations on room air. Yesterday, he achieved a at positive fluid balance of 550 ml. He remains afebrile and continues on antimicrobial coverage with vancomycin and Zosyn given his history of growing Pseudomonas. Overall, given his significant improvement, he may be stable to transfer to the general floor later today. PLAN: -- Closely monitor hemodynamics. MAP goal > 65. -- Continue to monitor respiratory status. Provide supplemental oxygen as needed. -- Continue to monitor urine output and optimize volume status. Monitor electrolytes and replenish as appropriate. -- Continue broad-spectrum antibiotics with vancomycin and Zosyn. Follow microbiology data. -- Continue steroids for pericarditis, hold colchicine given acute kidney injury -- Therapeutic anticoagulation with home warfarin -- Supportive cares -- Liaise with the family. Remaining issues per the systems-based plan outlined in the ICU notes from today. CC time 40 min Eze Shah M.D. Instruments Sales Representative [employer] Division of Pulmonary and Critical Care Medicine [facility] documented in this encounter H&P Notes * Nidia Inman M.D. - 09/02/2024 9:25 PM CDT This is a supervisory note for CCM-2. We have discussed the history, physical exam, and assessment/plan in detail. I agree with the documentation of today's date. I have personally seen and examined the patient, reviewed all relevant labs, radiology studies, and chart notes. I have discussed the assessment and plan in person with the multidisciplinary care team. HPI: Mr. Harris is a 74 y.o. 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 He initially presented today to an outside emergency department with increased fatigue and right lower extremity pain. He was hypotensive in the ED and was given 500cc of crystalloid. He was additionally started on NE. He was recently diagnosed with a cellulitis in the right lower extremity and treated with cefazolin followed by Duricef. However, he reports that the redness in his right lower extremity has extended and more rapidly over the last 24 hours. Prior outside swabs of the right lower extremity grew Pseudomonas that was believed to be a contaminant. He has never had Pseudomonas directed therapies. In the outside emergency department, he had BLE u/s: negative DVT. He was given a dose of clindamycin (had still been taking his Duricef). Upon arrival to our medical ICU, we were able to quickly wean down his norepinephrine but he remains hypotensive and in shock. He was alert and conversant. Bedside ultrasound showed a collapsible IVC. He was given an additional 500 cc bolus of crystalloid. Medical history is notable for: -CABG and AVR in September 2023 -Postoperative effusive pericarditis with constrictive physiology in 2023 -hypertension -hyperlipidemia -type 2 diabetes on insulin -chronic kidney disease stage IIIB -history of CVA with residual hemiplegia -restless leg syndrome on ropinirole -BPH Physical Exam: General: Alert and conversant. Oriented x3. Heart: Regular rate and rhythm, no murmurs Lungs: Nonlabored respirations on room air. Abdomen: soft, nontender, nondistended, normal bowel sounds . Extremities: Warm and well perfused. Lower extremity ulcerations bilaterally secondary to prior fluid pocket/blisters. Right lower extremity with significant erythema extending up the medial thigh beyond the prior demarcations. Photos are taken and uploaded in the chart but this is more apparent inperson and on physical exam. Labs: White blood cell count up to 25.5. INR 2.8. Creatinine 3.34 (baseline 3.2). Lactate 2.3. Impression/ Report/ Plan: # Shock, septic # Severe Right Lower Extremity Cellulitis (LRINEC=4) # Constrictive Pericarditis # Heart Failure With Preserved Ejection Fraction, Appears To Currently Be Compensated # Mechanical Aortic Valve On Therapeutic Anticoagulation With Warfarin # Type 2 Diabetes His shock state appears to be most consistent with vaso-dilatory shock. Given the expansion of the erythema of the right lower extremity and most suspicious that this source is a skin and soft tissueinfection. He has been on antibiotic therapy with cefazolin and then cefadroxil. Secondary to this,we will broaden coverage to vancomycin and Zosyn. This is a nonpurulent cellulitis so my suspicion that MRSA could be a culprit is low. However he did have that outside swab that showed Pseudomonas that we had previously been attributing to a contaminant. For that reason, I do think anti pseudomonal coverage is important in the setting. Plan: -give additional 500 cc bolus (total 1 L of crystalloid) -we norepinephrine to maintain a map of greater than 65 -continue vancomycin and Zosyn for severe cellulitis resulting in shock -Obtain CRP and CK -Hold off on further lower extremity imaging -hold home beta-leonora and antihypertensives # Code status: Full code Prophylactic ICU bundle: Fluids-additional 500 cc bolus Analgesia-Tylenol as needed Sedation-not indicated Thromboembolic prophylaxis-continue warfarin Head of bed elevation-30?? Ulcer prophylaxis-not indicated Glucose management-less than 180 while in the ICU Lines-peripheral IV x2 (2 20 gauge IVs) Mobility-ad osmar Nutrition-general diet Critical care time 60 minutes. This is time spent at this critically ill patient's bedside activelyinvolved in patient care as well as the coordination of care and discussions with the patient's family. This does not include any procedural time which has been billed separately. * Yosef Lieberman APRN, C.N.P., D.N.P. - 09/02/2024 7:24 PM CDT Images from the original note were not included. SUBJECTIVE CHIEF COMPLAINT Jong Harris is a 74 y.o. male who presents with severe sepsis with septic shock needing vasopressor support. HISTORY OF PRESENT ILLNESS Jong Harris is a 74 y.o. male patient who presents to the Medical Intensive Care Unit (MICU)from [facility] via ground ambulance after presenting to their Emergency Department for evaluation of fatigue, weakness, increased right lower extremity pain and redness. Symptoms began the morning of September 02, 2024. Past medical history includes: CABG and AVR (2022), Postoperative restrictive pericarditis, Hypertension, Hyperlipidemia, T2DM, Lower extremity cellulitis (Positive swab for Pseudomonas) CKD and history of CVA. Recent pertinent history includes admission to the Cardiology Services on August 27, 2024 for heart failure exacerbation as well as lower extremity edema and cellulitis. Patient was discharged home on August 31, 2024 with instructions to increase his Torsemide to 60 mg twice daily as well as to start Duricef for his right lower extremity cellulitis. In the Emergency Department at [place], patient was found to be hypotensive (80's/40's). For this reason, patient was given 500 ml of crystalloids followed by the initiation of Norepinephrine. Labs in the Emergency Department were significant for an elevated white count at 15.90 and C-reactive of 2.9. US of the bilateral lower extremities was negative. Patient was given a dose of Clindamycin for his right lower extremity cellulitis. Patient arrives to the MICU alert and oriented, heart rate in the low 80's and and MAPs in the mid 60's. He has norepinephrine infusing at a rate of 0.2. The following portions of the patient's history were reviewed and updated as appropriate: allergies, current medications, medical history, and problem list. REVIEW OF SYSTEMS Constitutional: Positive for fatigue. - Negative for fever, loss of appetite, night sweats, weight gain of more than 10 pounds and weightloss of more than 10 pounds. Skin: - Lower extremity redness, swelling and pain. Respiratory: - Negative for coughing up blood, coughing up mucus (phlegm), dry cough, shortness of breath and wheezing. Cardiovascular: Positive for swelling in the legs or feet. - Negative for chest pain, pressure or tightness, rapid or fluttering heart beat, pain in the calf muscles when walking, shortness of breath when lying flat and concerns for appearing blue or pale. Gastrointestinal: - Negative for abdominal (belly) pain or cramping, constipation, diarrhea, nausea, vomiting and difficulty swallowing. The following systems were negative: Genitourinary, Hematologic, Musculoskeletal, Neurological, Psychiatric OBJECTIVE VITAL SIGNS I have reviewed the current vital sign data as applicable to this admission. PHYSICAL EXAM Constitutional General: He is not in acute distress. Appearance: He is not ill-appearing, toxic-appearing or diaphoretic. HENT Head: Normocephalic. Mouth/Throat: Mouth: Mucous membranes are moist. Cardiovascular Rate and Rhythm: Normal rate. Pulmonary Effort: Pulmonary effort is normal. Breath sounds: Normal breath sounds. Abdominal General: There is no distension. Palpations: Abdomen is soft. Tenderness: There is no abdominal tenderness. Genitourinary Penis: Normal. Musculoskeletal Cervical back: Neck supple. Right lower leg: Swelling and tenderness present. Left lower leg: Swelling present. Comments: Please see media for pictures taken by critical care nurse. Patient has several lower extremity bullae, some intact and weeping, others not intact. There is non circumferential posterior medial erythema which extends to the mid thigh. There is no crepitus. Skin Findings: Rash present. Neurological Mental Status: He is alert and oriented to person, place, and time. Psychiatric Mood and Affect: Mood normal. Behavior: Behavior normal. DIAGNOSTICS I have reviewed relevant laboratory, imaging, and other diagnostics as applicable to this admission. 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 Patient is currently requiring vasopressor support with norepinephrine which we will continue to wean as tolerated. His POCUS showed a collapsible IVC for which he will receive an additional 500 ml of crystalloids. We will repeat labs to include a CK and C-reactive protein. Low suspicion for necrotizing fascitis with a LRINEC score of 4, however, will continue to monitor and if any worsening symptoms, could consider a CT scan. Will broaden his antibiotics to Zosyn and Vancomycin for now with his recent positive swab for pseudomonas. PLAN BY SYSTEMS: NEURO: - No acute concerns -- Pain management: Tylenol prn for fevers and pain -- Requip for his RLS CARDIAC: # Severe sepsis with septic shock # S/P CABG and AVR (2022) # Post operative pericarditis # Atrial fibrillation -MAP Goal: > 65 -- Fluid boluses prior to admit: 500 -- Fluid boluses since arriving to the ICU: Will add an additional 500 ml of LR -- Will place central/arterial lines and utilize vasopressors if necessary -- Vasoactive meds: Levophed -ECG: NSR -- Obtain baseline troponins and BNP -- holding home metoprolol and torsemide in the setting of hypotension -- Consider restarting prednisone tomorrow as well as warfarin (pharmacy aware of warfarin and recommends holding it for tonight) RESP: -- No respiratory symptoms -- negative COVID -- On room air : # CKD (baseline 3.1) -- Monitor electrolytes and replace as needed -- Avoid nephrotoxic medications -- UCI for strict I&Os GI: -Nutrition: Advance diet as tolerated -- PPI not indicated -- Check hepatic panel ENDO: # T2DM -- Check blood sugar every 4 hours -- Consider stress dose steroids if MAP remains low despite fluids and pressors -- Holding home ID: # Right lower extremity cellulitis -Cultures: -- repeat blood cultures now -- Obtain MRSA nasal swab -Abx: Received Clindamycin in OSH -- Initiate empiric coverage with Zosyn and Vancomycin -- Obtain procalcitonin -- recheck lactate Q3H HEME: -Goal Hg >7.0. Transfuse as indicated -- Anticoagulation/DVT prophylaxis: Warfarin MSK: # right lower extrmeity cellulitis -- Negative Bilateral US at OSH ACCESS: -PIV x 2 DISPO -Code Status: Full -ICU level of cares -Family updated documented in this encounter Consult Notes * Kleber Justin P.T., Emilia.P.T. - 09/06/2024 10:49 AM CDT Physical Therapy Inpatient Evaluation/Treatment SUBJECTIVE Patient's Name: Jong Harris Referring/Attending Provider: Nori Benítez M.D. Reason for Referral: Physical Therapy Evaluate and Treat Pertinent Medical / Surgical History: Jong Harris has a past medical history of Acidosis Lactic (09/20/2023), Acquired Aortic Valve Disorder (09/19/2023), Aphasia (04/11/2019), Atrial Fibrillation Unspecified ([facility]), Basal Cell Carcinoma Skin Other Parts Face (08/19/2023), Diabetes Mellitus Type 2 ([facility]), Hyperlipidemia, Hypertension NOS, Murmur Heart, Pain Shoulder Right (04/11/2019), Squamous Cell Carcinoma Skin Other Parts Face (08/19/2023), Stenosis Aortic Valve Acquired, and Stroke ([facility]). Jong Harris has a past surgical history that includes ANGIOGRAM (N/A, 08/21/2023); REPLACEMENT AORTIC VALVE (N/A, 09/19/2023); CABG X 1 - Vein (N/A, 09/19/2023); Ligation Left Atrial Appendage (N/A, 09/19/2023); Isolation Pulmonary Vein (N/A, 09/19/2023); and Echocardiogram Transesophageal (N/A,09/19/2023). History of Present Illness: Jong Harris is a 74 y.o. male who was admitted to [facility] in [place] on 09/02/2024 for Severe Sepsis With Septic Shock (HCC) [R65.21] Sepsis (HCC) [A41.9]. Relevant Medical History: Mr. Harris is hospitalized on [facility] 7 ([facility]) for evaluation and management of Cellulitis. Precautions Other Precautions: Fall risk RST PT/OT Falls screen: Fall in the last 12 months: No Are you fearful of falling: Yes, I constantly think about it. Pain Assessment: Pain Ratin/10 on a 0-10 point scale, Location: right leg. Patient states level of pain is acceptable or tolerable to participate in therapy Pain intervention(s) used to address pain greater than 4: medication administered by RN ambulation/activity repositioned Patient/Caregiver Goals: Decrease pain, Return to home, and Return to prior level of function Subjective Comments: Agreeable to therapy session. Home Living and Equipment: Lives with: Spouse/Significant other Receives help from: Family Type of Home: Apartment Home Layout: One Level Home Access: Stairs to enter: Number of steps: 3 to get in building and 5 or 6 into lower level where his apartment resides, Railing: unilateral handrail Bathroom Accessibility: Bathroom not accessible Shower: Tub/Shower Bathroom Equipment: Grab bars in shower, Hand-held shower head, tub transfer bench Toilet: Standard Toilet Toilet Equipment: Vanity next to toilet Assistive Device Owned: Front wheeled walker, Single point cane Adaptive Equipment Owned: Psych Specialist, Long Handled Shoe Horn Other DME Owned: Regular flat bed Prior Level of Function and Mobility: Basic Activities of Daily Living: Modified Independent: LB dressing and shoe horn (when swollen) Instrumental Activities of Daily Living: Shared with family member - assist with laundry, does cleaning, helps empty information lead, manages own meds Functional Mobility: Independent Driving: Yes 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 Evaluation Assessments: Strength: Generalized weakness Right lower extremity impaired Left lower extremity impaired Range of Motion: Generalized weakness Right lower extremity impaired Left lower extremity impaired Balance: Static Sitting: Good (Maintains balance without support) Dynamic Sitting: Good (Maintains balance without support) Static Standing: Fair (Maintains balance with handheld assist) Dynamic Standing: Fair (Maintains balance with handheld assist) Activity Tolerance: Endurance: Tolerates 10-20 minutes of activity Outcome Measures: AM-[facility] Inpatient Short Form: AM-[facility] Basic Mobility (V.2) How much help [...] 3-5 steps with a railing?: A Little -[facility] Basic Mobility (V.2) Raw Score: 19 -[facility] Basic Mobility (V.2) Standardized Score: 42.48 Interpretation: Based on scoring guidelines using the raw score value: Those going to home had an average score at or above 18 Those going to facility had an average score at or below 17 Clinicians answer the -[facility] Inpatient Short Form based on observed patient activity and/or clinical judgment (patient can be scored without physically performing each activity) Therapeutic Interventions: SIT TO STAND: - Assist Level: contact guard assistance of 1 - Device: gait belt and front wheeled walker - Surface: chair - Therapist Delivery: assessed, educated, facilitated, and instructed - Assist/Cues Provided: verbal and tactile for anterior weight shift, device placement, lower extremity placement, safety, sequencing, terminal hip extension, upper extremity placement, and upright posture STAND TO SIT: - Assist Level: contact guard assistance of 1 - Device: gait belt and front wheeled walker - Surface: chair - Therapist Delivery: assessed, educated, facilitated, and instructed - Assist/Cues Provided: verbal, tactile, and visual for alignment with seated surface, device placement, eccentric control, hip flexion, lower extremity placement, and upper extremity placement GAIT: - Distance: 80 meters - Assist Level:contact guard assistance of 1 - Device: gait belt and front wheeled walker - Quality: decreased base of support, decreased gait speed, decreased stance time Right, decreased step height, decreased step length, downward gaze, guarded, shuffling - Therapist Delivery: assessed, educated, facilitated, and instructed - Assist/Cues Provided:verbal, tactile, and visual for forward gaze, pacing, placement within the walker, upright posture, and weight shifting - Comments: Patient tolerated hallway ambulation well without adverse events. STAIRS: - 8 steps with bilateral handrails - Assist Level: contact guard assistance of 1 - Device: gait belt - Navigation Pattern: - Ascending: step to and forward - Descending: step to and forward - Therapist Delivery: assessed, educated, facilitated, and instructed - Assist/Cues Provided: lower extremity placement, pacing, proper sequencing, and technique THERAPEUTIC EXERCISE: Seated Therapeutic Exercise: - Side: bilateral, lower extremity(ies) - Mode: active range of motion - Exercises: ankle pumps, long arc quads, and marching - Repetitions: 1 set of 10 repetitions - Assist/Cues Provided: full range of motion, motor control, and pacing EDUCATION: Provided education on role of physical therapy in the acute setting. Collaborated with patient and/or family on goals and plan of care. Home Exercise Program: -Patient and/or family provided education on home exercise program and how to safely implement intodaily routine to increase strength and range of motion. Functional Transfers: -Provided instruction and cues during functional sit to/from stand transfers, including body alignment to surface, appropriate hand placement, and optimal placement of surgical extremity to optimize safety and technique. DME: -Educated patient/caregiver regarding recommended use of mobility equipment. Home Safety/Fall Prevention: -Educated patient/caregiver regarding home safety and fall prevention strategies to promote safety and independence including use of recommended assistive device, wearing non-slip footwear, ensuring clear pathways, removing throw rugs, and good lighting throughout the home. The patient's status was discussed and the following coordination of care occurred with the RN Patient was left in bedside chair at [...] of Care Needed - PT: Assistance with stairs, Assistance with transfers (Comment), Assistance with walking and moving around the home Barriers to Discharge Home: Current functional status, Fall risk Barriers to Discharge Comments: 3-4 stairs to enter complex, 6 stairs to reach level of living space Equipment Recommended - PT: Front-wheeled walker From a physical therapy perspective, the level of care above has been recommended for Mr. Harris after hospital discharge. This level of care is based on his functional abilities during today's session. This may change throughout the hospital course and will be updated as appropriate. Clinical Impression: Currently, patient presents with decreased range of motion, decreased strength, increased pain, impaired static balance, impaired dynamic balance, decreased activity tolerance, and decreased safety awareness resulting in the following impaired bed mobility, impaired transfers, impaired gait, impaired ability to complete ADLs, and impaired ability to complete stairs. The patient tolerated today's treatment session well without significant reports of increased pain with mobility. The patient tolerated hallway ambulation well demonstrating the ability to ambulate approximately 80 meters with contact guard assistance and use of a front wheeled walker for assistance. The patient tolerated stair training well demonstrating the ability to negotiate 8 steps with useof bilateral railings and contact guard assistance. The patient is most limited by decreased activity tolerance for progression of upright mobility. Current recommendations for functional mobility and transfers are assistance of 1 with use of a front wheeled walker for patient and staff safety. Thepatient remains below their functional baseline and physical therapy intervention remains medicallynecessary in the acute and post acute settings to address the below stated functional goals and to maximize functional independence. Physical therapy treatment is medically necessary to restore and maximize function, maximize safetyand facilitate discharge to home, teach and educate the patient and/or caregivers. Recommendations for mobility/activity while hospitalized: chair 3x/day with assist x1 and gait belt and front wheeled walker (2 hours max in chair at a time) gait 3x/day with assist x1 and gait belt and front wheeled walker lower extremity exercises 3x/day Plan PT Plan Comments: Plan to progress ambulation distance as tolerated, progress lower extremity therapeutic exercise as appropriate, review stairs as needed, and assess bed mobility next session as able. Functional Goals: PT Inpatient Goals PT Goal #1: Patient will demonstrate supervision with bed mobility without hospital bed features todemonstrate improved functional mobility and independence. PT Goal #1 Status: Ongoing PT Goal #2: Patient will demonstrate sit to stand transfer with modified independance and use of least restrictive assistive device to demonstrate improved functional mobility and independence. PT Goal #2 Status: Progressing PT Goal #3: Patient will be able to ambulate 75 meters with modified independence using the least restrictive device while executing the task with good safety awareness, stability, and functional strength. PT Goal #3 Status: Progressing PT Goal #4: Patient will demonstrate ability to navigate 10 steps with supervision using least restrictive device in order to safely enter and exit place of residence. PT Goal #4 Status: Progressing Progress: Progressing toward goals Jong Harris has Good rehab potential to meet the expected outcomes in a reasonable period oftime. Treatment Plan: Plan: Plan of care initiated PT Amount: 1 visit per day PT Frequency: 5 times per week PT Inpatient Duration : Until goals are met or hospital discharge Requires Inpatient Follow-Up: Yes PT - Next Inpatient Appointment: 09/08/24 Patient agrees with the plan of care and goals. Treatment interventions may include: Treatment/Interventions: Therapeutic exercise, Therapeutic functional activity, Neuromuscular re-education, Gait training, Self-care/home management Billing: Tiered PT Evaluation Codes: Comorbid Conditions: Cardiopulmonary disease, Diabetes, Cerebrovascular accident, Renal disease, Other (Comment) (See EMR for full medical record detials.) Personal Factors: Age, Needs assistive device, Living situation, Safety awareness Examination elements: 3 Clinical Presentation: Evolving Clinical Decision Making: Moderate complexity clinical decision making Time Spent with Patient Evaluations PT Eval - Mod Complexity: 10 min Therapeutic Interventions Therapeutic Activity (min): 14 min Time Tracking Total Timed Units (min): 14 min Total Treatment Time (min): 24 min Kleber Justin P.T., D.P.T. * Chelsea Falcon O.T., O.T.Petra - 09/05/2024 3:31 PM CDT Occupational Therapy Acute Hospital Inpatient Evaluation/Treatment SUBJECTIVE Patient's Name: Jong Harris Referring/Attending Provider: Nori Benítez M.D. Reason for Referral: Occupational Therapy Evaluation and Treatment PERTINENT MEDICAL / SURGICAL HISTORY: Jong Harris has a past medical history of Acidosis Lactic (09/20/2023), Acquired Aortic Valve Disorder (09/19/2023), Aphasia (04/11/2019), Atrial Fibrillation Unspecified (HCC), Basal Cell Carcinoma Skin Other Parts Face (08/19/2023), Diabetes Mellitus Type 2 ([facility]), Hyperlipidemia, Hypertension NOS, Murmur Heart, Pain Shoulder Right (04/11/2019), Squamous Cell Carcinoma Skin Other Parts Face (08/19/2023), Stenosis Aortic Valve Acquired, and Stroke ([facility]). Jong Harris has a past surgical history that includes ANGIOGRAM (N/A, 08/21/2023); REPLACEMENT AORTIC VALVE (N/A, 09/19/2023); CABG X 1 - Vein (N/A, 09/19/2023); Ligation Left Atrial Appendage (N/A, 09/19/2023); Isolation Pulmonary Vein (N/A, 09/19/2023); and Echocardiogram Transesophageal (N/A,09/19/2023). History of Present Illness: Jong Harris is a 74 y.o. male who was admitted to [facility] in [place] on 09/02/2024 for Severe Sepsis With Septic Shock ([facility]) [R65.21] Sepsis ([facility]) [A41.9]. Falls screen: Fall in the last 12 months: No Pain Assessment: Pain not reported, but observed in therapy session Subjective Comments: Agreeable to therapy session. Patient/Caregiver Goals: Discharge home Home Living and Equipment: Lives with: Spouse/Significant other Receives help from: Spouse/Significant other Type of Home: Apartment Home Layout: One Level Home Access: Stairs to enter: Number of steps: 3 to get in building and 5 or 6 into lower level where his apartment resides, Railing: unilateral handrail Bathroom Accessibility: Bathroom not accessible Shower: Tub/Shower Bathroom Equipment: Grab bars in shower, Hand-held shower head, tub transfer bench Toilet: Standard Toilet Toilet Equipment: Vanity next to toilet Assistive Device Owned: Front wheeled walker, Single point cane Adaptive Equipment Owned: Psych Specialist, Long Handled Shoe Horn Other DME Owned: Regular flat bed Prior Level of Function and Mobility: Basic Activities of Daily Living: Modified Independent: LB dressing and shoe horn (when swollen) Instrumental Activities of Daily Living: Shared with family member - assist with laundry, does cleaning, helps empty information lead, manages own meds Functional Mobility: Independent Driving: Yes 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 Evaluation Assessment: STRENGTH: Generalized weakness Right lower extremity impaired Left lower extremity impaired RANGE OF MOTION: Right lower extremity impaired Left lower extremity impaired Not formally assessed but appears within functional limits based on observation BALANCE: Static Sitting: Good (Maintains balance without support) Dynamic Sitting: Good (Maintains balance without support) Static Standing: Good (Maintains balance without support) Dynamic Standing: Fair (Maintains balance with handheld assist) ACTIVITY TOLERANCE: Endurance: Tolerates 10-20 minutes of activity Outcome Measures: [facility] Inpatient Short Form: Putting on and taking off regular lower body clothing?: A Little Putting on and taking off regular upper body clothing?: None Taking care of personal grooming such as brushing teeth?: None Bathing (including washing, rinsing, drying)?: A Little Toileting, which includes using toilet, bedpan, or urinal?: None Eating meals?: None Daily Activities Raw Score (max 24): 22 Daily Activities Standardized Score: 47.1 Interpretation: Based on scoring guidelines using the raw score value: Those going to home had an average score at or above 18 Those going to facility had an average score at or below 17 Clinicians answer the [facility] Inpatient Short Form based on observed patient activity and/or clinical judgment (patient can be scored without physically performing each activity). Cognition: No observable concerns with cognition at this time Therapeutic Interventions: ACTIVITIES OF DAILY LIVING: GROOMING - Assist Level: supervision/set-up - Patient Location: standing at sink - Activity: washing hands - Therapist Delivery: assessed, facilitated - Assist/Cues Provided: none TOILETING - Assist Level: supervision/set-up - Patient Location: toilet and standing - Activity: clothing management, anterior pericare - Therapist Delivery: assessed, facilitated - Assist/Cues Provided: none - Adaptive Equipment: grab bars FUNCTIONAL TRANSFERS: SIT<>STAND - Assist Level: contact guard assist - Device: front wheeled walker and gait belt - Surface: chair - Therapist Delivery: assessed, facilitated, instructed - Assist/Cues: verbal for proper hand placement FUNCTIONAL MOBILITY: Mobility performed to practice household distances with contact guard assistance and front wheeled walker and gait belt Education/Training Provided: Provided education on role of occupational therapy in the acute setting. Collaborated with patient and/or family on goals and plan of care. Functional Transfers: - Provided instruction and cues during functional sit to/from stand transfers, including body alignment to surface, appropriate hand placement, and optimal placement of extremities to optimize safetyand technique. Bathroom DME: - Educated patient/caregiver regarding recommended use of bathroom safety equipment to optimize safety during bathing and toileting. Recommended DME: shower chair Team Communication: The patient's status was discussed and coordination of care occurred with leather sorter/Caregiver Present: Patient was left in bedside chair at [...] Assistance with transportation, Assistance with housekeeping, Assistancewith shopping, Assistance with toilet/shower transfers, Assistance with showering/bathing, Assistance with meal preparation, Assistance with dressing Barriers to Discharge Home: Current functional status, Fall risk Barriers to Discharge Comments: 3-4 stairs to enter complex, 6 stairs to reach level of living space Recommended Adaptive Equipment - OT: Shower chair without back Clinical Impression: Currently, patient presents with impairments including pain, decreased strength, impaired balance, decreased activity tolerance, and limited endurance resulting in functional deficits including impaired functional mobility and decreased independence with self care tasks. Mr. Harris participated well occupational therapy eval and treatment. He demonstrated toileting and standing grooming with modified independence and/or setup assistance/supervision. OT educated on DME/AE recommendations (shower chair) as patient and note that tub transfer bench is more of a trip hazard in their small bathroom. He reports PT was going to write a script for 4WW but it did not get filled prior to last hospitalization and he would like to get that filled. He typically mobilizes without gait aid and would like to get back into outdoors (fishing) but feels unsteady without any gait aid on uneven surfaces. OT recommended talking to PT about options for this (i.e. walking sti ck, cane, etc.). OT will continue to progress functional mobility to increase participation and independence in I/ADLs. The patient will benefit from ongoing occupational therapy services while hospitalized in order to improve engagement and independence in meaningful occupations. In-Hospital Activity and Mobility Recommendations: - Transfer into chair 3x/day with assist x 1. - Recommend position changes every 2 hours - Ambulate to bathroom for toileting - Eat ALL meals in chair - Active engagement in daily self-care routine (oral cares, face washing, combing hair) Plan OT Plan Comments: Next session: LB dressing, shower; UE HEP; dynamic standing balance activities Functional Goals: OT Goal #1: Patient will demonstrate independence with UE HEP utilizing visual aid/handout to increase strength and activity tolerance for improved engagement in daily tasks. OT Goal #2: Patient will be able to verbalize understanding of activity modification and energy conservation strategies to improve functional performance and efficiency with activities of daily living by discharge. OT Goal #3: Patient will safely complete dynamic household task with least restrictive gait device and no loss of balance to return to prior level of function. OT Goal #4: Patient and/or caregiver will verbalize understanding of DME recommendations to optimize safety within least restrictive environment at dismissal. Progress: Progressing toward goals Rehab potential: Mr. Harris has good potential to achieve established occupational therapy goals within the time frame outlined below. OT Frequency: OT Amount: 1 visit per day OT Frequency: 3 times per week OT Inpatient Duration : Until goals are met or hospital discharge Requires Inpatient OT Follow-Up: Yes OT - Next Inpatient Appointment: 09/08/24 Plan: Plan of care initiated Treatment interventions [...] - 5 performance deficits Evaluation Complexity: Moderate Time Spent with Patient Evaluations OT Eval - Mod Complexity: 10 min Therapeutic Interventions Home Management Training (min): 16 min Therapeutic Activity (min): 15 min Time Tracking Total Timed Units (min): 31 min Total Treatment Time (min): 41 min Chelsea Falcon O.T., O.T.Petra * Fanny Paris R.N. 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 1 To 4 Chronic Kidney Disease Or Unspecified Chronic Kidney Disease #3 Hyperlipidemia On Treatment #4 Benign Prostatic Hyperplasia Without Obstruction #5 Atrial Fibrillation Paroxysmal (HCC) #6 Diabetes Mellitus Type 2 (HCC) #7 Hemiplegia Dominant Side Right (HCC) #8 Hypertension Essential Primary #9 Stroke Cerebrovascular Accident Personal History #10 Coronary Arterial Bypass Graft Status Post Personal History #11 Prosthesis Aortic Valve #12 Coronary Artery Disease Without Angina Pectoris #13 Failure Renal Acute (Acute Kidney Injury) (HCC) #14 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 #15 Cardiac Surgery Status Post #16 Bypass Coronary Artery Graft Status Post #17 Penitentiary (Current) Anticoagulant Treatment #18 Cellulitis #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 Social History Marital Status: Family / Household: Resides with in apartment / Three adult children: Fanny ([place]), Lionel ([place]), and Giselle ([place]) Support System: spouse and family members Primary Caregiver: self Finance/Insurance Primary insurance: AARP MEDICARE ADVANTAGE PPO Secondary insurance: N/A benefits: No Advance Directives Legal Decision Maker: Self Advance Directives Status: Information given, None on file OBJECTIVE Baseline Functional Status Baseline Activities of Daily Living Mobility: Independent Dressing: Independent Feeding: Independent Bathing: Independent Grooming: Independent Toileting: Independent Behavior: Appropriate, Pleasant, Calm, Cooperative, Oriented Communication: Talks, Understands speaking, Understands [place] Citizen, Communication delay(s) (comment) (History of stroke, needs to be spoken to slowly, takes time to process.) Shopping: Needs assistance Medication Management: Independent Housekeeping: Needs assistance Meal Prep: Independent Assistive Devices: Cane, Cellphone, Eyeglasses, Grab bars - wall, Hand held shower, Handrails for stairs, Tub/shower chair/bench, Walker - front wheeled (Has gait aids but does not use) Transportation: Independent to drive Managing Finances: Needs assistance Baseline Services/Resources Primary care clinic and provider: ELSEWHERE, PCP Additional Resources: None Anticipated Needs Functional Status: Housekeeping, Shopping, Managing finances, Transportation use (drive car, use taxi/bus) Assistive Devices: None Anticipated Modifications to the Patient's Home: Patient reports no anticipated modifications needed to the home Transportation Needs: Support from family Does the patient need discharge transport arranged?: No Phone Number for Ride/Caregiver: Lissy () [phone] Anticipated Discharge Destination: Home or Self Care ASSESSMENT / PLAN Assessment: The architecture drafter met with Jong Harris to discuss his current hospitalization and home going needs. The patient was accompanied by , Lissy. The patient was was a reliable historian. The role of architecture drafter was reviewed. The patient reviewed his prior level of care and support system.The patient receives support from his and children. The patient described his living environment as a apartment without elevator access with three stairs to enter with rails. Housekeeping, grocery shopping, meal prep, and other household responsibilities have previously been completed by patient and patient's . architecture drafter discussed the patient's potential needs at dismissal based on their home setting, previous needs and responsibilities,homebound status, and relevant assessments with the patient. The patient will be safe and supportedto return home with spouse/S.O. when medically ready. Support will be provided by Lissy and their adult children. The patient and patient's demonstrated understanding when discussing his home going plans and anticipated needs. architecture drafter met with the patient and his , Lissy, at bedside. The patient was alert, oriented, and sitting in his hospital chair. ANGIE JOSHI introduced herself and explained her role with [facility]. The patient and Lissy were agreeable to furthering the discussion for discharge planning. The patient and his reside in the basement level of their apartment building. Once inside the building, there are five steps to navigate to the basement level with a railing. The patient is independent ofADLs and IADLs; however, Lissy does most of the driving and cooking and manages their finances. The patient has a right toe drag that is residual of a stroke back in 2019, but walks independently. The patient has access to a cane and front-wheeled walker in their garage. They have a tub/shower combination in their bathroom equipped with a handheld shower head and grab bar on the wall. The patient has a shower chair in the garage that he does not use. The patient is retired and Lissy works approximately three hours a day during the week driving a shuttle van from the [place] area to [place]. They have three adult children, one of which (Fanny) that lives in [place] and is available as necessary. When asked about financial concerns, both the patient and Lissy expressed that they do have concerns. ANGIE JOSHI offered the Senior Linkage Line booklet as a resource and encouraged them to call the [facility] for assistance. The patient does not have an AD on file. ANGIE JOSHI offered the Advance Health Care Planning: Making Your Wishes Known [id number] booklet and explained the process to complete. Both the patient and Lissy verbalized understanding and were accepting of this information. The patient plans to return home with Lissy who will provide transportation at discharge. During this consultation, the patient became visibly frustrated. This senior underwriter asked the patient to express his feelings. The patient inquired that he had a stroke in 2019 and was unable to speak. His , Lissy, became his spokesperson during that time and the patient feels as though he has lost control of making his own decisions since then and commented that there are things that I have had to give up and things that have been taken away from me. It's about me. He expressed frustration that Lissy speaks for the patient and that medical teams throughout his hospital stay have focused their attention to Lissy and not him as the patient. ANGIE JOSHI verbalized understanding of his frustration and encouraged the patient to speak up to the staff members who are making him feel that way. He is his own decision maker as long as he is of sound mind. The patient appeared comforted and more relaxed afterthis conversation was had. At this time, the care team has not identified any skilled post-hospital discharge care needs that require the assistance of the Care Management Team. After reviewing the patient's chart and meeting with the patient, the architecture drafter deemed the LACE+/readmission questions were not necessary. The patient and patient's reports understanding that he will dismiss from the hospital when medically stable. Pending hospital course and medical readiness, no barriers to dismissal have been identified at this time. Plan: The patient and patient's agrees with the following plan. Patient's anticipated discharge disposition is: Home to Self Care Transportation upon dismissal will be provided by family--Lissy () [phone] . architecture drafter recommended discussing needed assistance with family, friends, or neighbors . architecture drafter provided information regarding the dismissal process, the Senior Linkage Line ([place] Board on [employer]ging) handout, and the Advance Health Care Planning: Making Your Wishes Known [id number] booklet along with education on the benefits of completing an advance directive and resourcesthat may assist them in this process. The patient and patient's shared no further questions orconcerns regarding advance directives. The patient and patient's appears to have an understanding of how to complete an advance directive and reported awareness of resources to assist them. architecture drafter placed or requested the following hospital-based consult orders and/or referrals: None. architecture drafter encouraged the patient to reach out with any questions/concerns. 7. architecture drafter will continue to assess for homegoing needs with the interdisciplinary team. Signed by: Fanny Paris R.N. 09/05/2024 * Flex Hansen M.D., M.P.H. - 09/05/2024 7:32 AM CDTAssociated Order(s): Diabetes consult (hospital) DIABETES CONSULTING SERVICE CONSULT NOTE SUBJECTIVE Diabetes consult (hospital) Referring Provider: Maude Rob M.B.B.S., M.D. CHIEF COMPLAINT/REASON FOR CONSULT Patient seen today for management of diabetes. HISTORY OF PRESENT ILLNESS The patient admitted on 09/02/2024 for septic shock secondary to right lower extremity cellulitis, on zosyn til 09/08 . Was initially admitted to the ICU and then was transferred to the floor on 09/04 due to continued stability. Patient seen up in chair by bed this morning. Eating breakfast with good appetite. at bedside. DIABETES HISTORY: History of diabetes mellitus, type 2 on NPH insulin. Diagnosed in 2011. PREADMISSION THERAPY: -- Insulin NPH 30 units in AM and 20 units in PM, has previously trialed medications like metforminfor diabetes control in the past -- Had 30 units of NPH yesterday morning and 10 units of NPH yesterday evening. Had a total of 27 units of short acting insulin yesterday morning. DIABETES COMPLICATIONS: Diabetic nephropathy - Stage 4 15-29% - based on GFR 23 Neuropathy - peripheral Cerebrovascular disease. CO-MORBIDITIES: Hypertension, Dyslipidemia, Heart failure - Ejection fraction 68%, and Chronic renal failure. DIET: Reports that he normally eats cereal, peanut butter, orange juice, and fruit each morning such as strawberries, bananas, or pears. WEIGHT: Reports that he lost 20 lbs of water weight in the last few months but feels that he has probably gained this weight back since he has not been given his torsemide while being in the hospital SCREENING: Last dilated eye exam 03/2024. Patient receives eye exams annually. Reports no history ofretinopathy.. ACTIVITY: No regular exercise.. GLUCOSE MONITORING: Patient reports that he checks his sugar 2 times a day. Reports that there is nothing normal about his sugars. Reports that they range from 98-300. HYPOGLYCEMIA: Patient denies episodes of hypoglycemia.. FAMILY HISTORY Maternal grandfather had diabetes . HOSPITAL COURSE: Past 24 Hour Blood Glucose Readings - No results for input(s): LABGLUC, GLUCOSE, GLUCOSEFL in the last 24 hours. Yesterday received 30 units of NPH in the morning and 10 units of NPH in the evening. Had a total of 27 units of short acting insulin yesterday morning. Steroids: Prednisone normally on 15 mg prednisone daily which started on 08/31, but he received 17.5 mg of prednisone yesterday . The prednisone is for his pericarditis. Current Diet Adult Diet Regular; 60 gm Carbs (per meal) starting at 09/02 2222 REVIEW OF SYSTEMS Pertinent items are noted in History of Present Illness. PREADMISSION MEDICATION: Diabetes medication(s) were reconciled on 09/05/2024. OBJECTIVE VITAL SIGNS Temperature: 36.6 ??C Resp Rate: 16 Blood Pressure: 128/72 BP Location: Left arm;Upper SpO2: 96 % Height: 174 cm Weight: 81.5 kg Body mass index is 26.92 kg/m??. PHYSICAL EXAMINATION Musculoskeletal Comments: Compression wrappings on lower extremities bilaterally Psychiatric Mood and Affect: Mood normal. Behavior: Behavior normal. DIAGNOSTICS I have reviewed relevant diagnostics and labs. Lab Results Component Value Date HGBA1C 7.5 (H) 07/29/2024 Estimated Creatinine Clearance: 24.5 mL/min (A) (by C-G formula based on SCr of 3.14 mg/dL (H)). 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 Was initially admitted to the ICU and then was transferred to the floor on 09/04 due to continued stability. DCS has been consulted for diabetes management. Of note, per chart review patient had been taking 15 mg prednisone daily since 08/31, but has been receiving 17.5 mg of prednisone since 09/03. Given patient's glucose levels from yesterday, he needs more insulin coverage. Thus, will modify his NPH regimen so he receives 40 units in the morning and 15 units of NPH in the evening. Additionally, since he was hypoglycemic yesterday morning with a sugar of 56, we have moved his correction scale to morning. To prevent any additional hypoglycemic episodes, we ask that his nurses please not give him short acting correction at bedtime. PLAN: - Blood Glucose Monitoring: four times daily before meals and bedtime. - Glucose Goal: 140-180 mg/dL. - Basal: NPH 40 units in the morning and 15 units in the evening. - Mealtime: Will continue to assess if mealtime insulin is needed.. - Correction Scale: NovoLog individualized correction scale - DCS will evaluate and adjust insulin doses as indicated to achieve glycemic goal. ANTICIPATED DISMISSAL PLAN: Will continue to assess.. Blood Glucose Frequency: daily. Goal: 100-140 mg/dL. Please page DCS within 24 hours prior to hospital dismissal for final dismissal recommendations. Discussed above plan with patient who is alert and oriented, and in agreement. Thank you for the consult. DCS Resident Pager [phone] will follow. Call primary service for diabetes concerns between 6:30 p.m. to 6:30 a.m. Primary service to contact DCS via hospital scanner operator for questions. Cosigned by Aranza Santana M.D. at 09/05/2024 11:19 AM CDT Associated attestation - Aranza Santana M.D. - 09/05/2024 11:19 AM CDT I saw and evaluated the patient, participating in the [place] portions of the service. I reviewed the resident/fellow???s note. I agree with the resident/fellow???s findings and plan. Mr. Harris is a 74-year-old gentleman admitted with a Pseudomonas septicemia in the setting of cellulitis. We have been asked to assist with management of type 2 diabetes. The previous 2 days he has received a high dose of correction insulin at bedtime along with NPH. He had hypoglycemia yesterday morning and a significant drop in his glucose levels this morning. We are going to increase his NPH in the morning to achieve better glycemic control throughout the day, and will schedule a slightlyhigher dose of NPH at bedtime. We do not recommend giving correction insulin at bedtime, but he cancontinue to receive correction doses of insulin at mealtime. * Dunia Leung M.S., P.T. - 09/04/2024 9:00 AM CDT Images from the original note were not included. Wound Therapy Inpatient Evaluation/Treatment SUBJECTIVE Patient's Name: Jong Harris Referring/Attending Provider: Nori Benítez M.D. Medical Diagnosis: Severe Sepsis With Septic Shock (HCC) [R65.21] Sepsis (HCC) [A41.9] Reason for Referral: PMR wound assess and treat-bilateral lower extremities Onset Date: 09/02/24 Payor: [facility] / Plan: AARP MEDICARE ADVANTAGE PPO / Product Type: PPO / Patient/family gave verbal consent for photographs taken to monitor wound progress. PERTINENT MEDICAL / SURGICAL HISTORY: Patient Active Problem List Diagnosis Stenosis Aortic Valve Acquired 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 1 To 4 Chronic Kidney Disease Or Unspecified Chronic Kidney Disease Hyperlipidemia On Treatment Benign Prostatic Hyperplasia Without [...] (Acute Kidney Injury) (HCC) Hyperkalemia 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 Therapy Penitentiary Antiplatelet Device Cardiac Status Post Cardiac Surgery Status Post Effusion Pleural Bypass Coronary Artery Graft Status Post Penitentiary (Current) Anticoagulant Treatment Hyperparathyroidism Renal Secondary (HCC) Edema Leg Severe Sepsis With Septic Shock (HCC) Sepsis (HCC) Cellulitis Pericarditis Constrictive (HCC) Past Surgical History: Procedure Laterality Date [...] Valve); Surgeon: Sarah Miller M.D., M.P.H.; Location: [facility] History of Present Illness: 74-year-old male with medical comorbidities consisting of CABG and AVR (2022) complicated by postoperative restrictive pericarditis, HTN, HLD, DM type 2, lower extremity cellulitis (Positive swab for Pseudomonas), CKD IIIB, and history of CVA with residual hemiplegia whowas admitted to [facility]U in the setting of septic shock 2/2 lower extremity cellulitis. Family/Caregiver Present: No Patient/Caregiver Goals: Wound healing Patient Comments: Patient is supine in ICU bed and pleasantly agreeable to wound care session with minimal complaints of pain during selective debridement. Patient had been premedicated for pain prior to treatment. OBJECTIVE 09/04/24 1500 Wound 09/02/24 Cellulitis Leg Bilateral Date First Assessed/Time First Assessed: 09/02/242138 Present on Original Admission: Yes Primary Wound Type: Cellulitis Location: Leg Wound Location Orientation: Bilateral *Wound Length (cm) 5 cm (left (right-3.4 x 5.5)) *Wound Width (cm) 6 cm Wound Surface Area 30 cm^2 [employer] Non-contact low frequency ultrasound BWAT Size 3-Length x width 16.1 to < or equal to 36 sq cm BWAT Depth 3-Full thickness skin loss involving damage or necrosis of subcutaneous tissue, may extend down to but not through underlying fascia, and/or mixed partial and full thickness and/or tissue layers obscured by granulation tissue BWAT Edges 2-Distinct, outline clearly visible, attached, even with the wound base BWAT Undermining 1-None present BWAT Necrotic Tissue Type 3-Loosely adherent yellow slough BWAT Necrotic Tissue Amount 3-25 to 50% of wound covered BWAT Exudate Type 5-Purulent: thin or thick, opaque, hutchinson/yellow, with or without odor BWAT Drainage Amount 4-Moderate BWAT Skin Color Surrounding Wound 2-Bright red and/or blanches to touch BWAT Peripheral Tissue Edema 5-Djn-eoperzi edema extends >4cm around wound BWAT Peripheral Tissue Induration 1-None present BWAT Granulation Tissue 3-Bright, beefy red, <75% and >25% of wound filled BWAT Epithelialization 5-<25% wound covered BWAT Total Score 38 Wound Location: Bilateral lower extremities Modality: Non-contact low frequency ultrasound x 8 minutes Debridement: Mechanical debridement performed with fluffed gauze. and Non- excisional sharp selective debridement performed with forceps and iris scissors to remove adherent necrotic slough, loosened slough, and biofilm from bilateral lower extremity wound(s). Debridement depth: superficial/skin. Dressings: Mepilex Ag, Kerlix Or Vashe soak (x15 minutes) applied following advanced modality use; completion of wound dressing application afterwards. Position: Patient was in supine position for treatment session. Education provided to patient regarding mist ultrasound and plan of care. Communication and collaboration occurred with patient's nurse and Dutch LINK RN regarding planof care. Team Communication: Patient's nurse was contacted and patient's status was discussed Assessment Comorbid Conditions: Diabetes, Cancer, Cerebrovascular accident, Cardiopulmonary disease Personal Factors: Age Wound Care Discharge Needs: Ongoing wound care management by patient and/or caregiver., No ongoing therapeutic technologies required at discharge for wound care. Clinical Impression: Patient presents with deroofed bullae on bilateral lower extremities. There was a significant bioburden in the posterior right leg wound as well as the left distal/medial wound. Dressings were safelysaturated upon removal with no odor present. There was a green tinge on the right lower extremity wound. Able to remove a moderate amount of nonviable tissue with selective debridement. Will continuedaily x5 then reassess. See photos for details. Left leg: Right leg: Examination Elements: 3 Clinical Presentation: Evolving Clinical Decision Making: Moderate complexity clinical decision making Rehab Potential: Mr. Harris has excellent potential to achieve established wound therapy goals within the time frame outlined below. Functional Goals and Timeframes: Goal #1: WD: Right leg wound size will decrease 10% by goal review date in order to advance to proliferative phase of healing. (3.4x5.5cm) Goal #1 Date: 09/11/24 Goal #2: WD: Left leg wound size will decrease 10% by goal review date in order to advance to proliferative phase of healing.(5x6cm) Goal #2 Date: 09/11/24 Progress: Progressing toward goals Plan Patient agrees with the plan of care and goals. Treatment Plan: Frequency: 5 times per week Days of Treatment: , Sunday, Sunday, Sunday, Sunday PT Wound Duration: Until goals are met or hospital discharge PT - Next Inpatient Wound Care Appointment: 09/05/24 Plan: Plan of care initiated Wound PT Plan Comments: WD: Patient will continue non-contact low frequency ultrasound, debridementand wound cares daily x5 days (until 09/08) after which time frequency will be reassessed pending wound response and hospital course. Treatment interventions may include: Wound cares, Offloading, Debridement, Wound dressing assessment, Therapeutic modalities as needed Time Spent with Patient Evaluations PT Eval - Mod Complexity: 5 min Wound Select Debridement More Than 20 SCM (min): 20 min Time Tracking Total Treatment Time (min): 25 min Dunia Leung M.S., P.T. * Marisol Lazcano M.S. - 09/03/2024 2:17 PM CDTAssociated Order(s): IP CONSULT TO DIETITIAN Clinical Nutrition: Initial Assessment Clinical Nutrition was requested to evaluate patient for positive nursing baseline nutrition screenwith a MST score of 2 or greater SUBJECTIVE Mr. Harris is a 74 y.o. male admitted for with past medical history significant for CABG and AVR (2022) c/b postoperative restrictive pericarditis, HTN, HLD, DM type 2, lower extremity cellulitis (Positive swab for Pseudomonas), CKD IIIB, and history of CVA with residual hemiplegia who was admitted to [facility] MICU in the setting of septic shock 2/2 lower extremity cellulitis. Completed visit with patient and family today as part of face to face care. Current Nutrition (since admission): Pt reports that eating is going well. He reports that he ate most of his breakfast despite the frittata not tasting good. During recent hospital admits the pt wasconsuming 100% of his meals. Pt was agreeable to trying Premier Protein to help increase his protein intake. Noted elevated glucose levels. Pt is on 60 gm carbohydrate restriction. Percentage of Meals Eaten for the past 72 hrs: Percent Meals Eaten (%) 09/03/24 1200 100 09/03/24 0800 100 09/02/24 2200 100 Nutrition history: Pt has been admitted to the hospital multiple times in the past 2 months. Pt denies any major changes in appetite or intake other than a slight decrease as he has aged. Pt reports that the hospital food is not the greatest, bit is able to find foods he does enjoy. Prior to hospital admits pt reports trying to watch his sodium and carbohydrate intake. Food Allergies: NKFA Chewing/Swallowing Issues: None per pt Nutrition education/counseling: During visit pt had questions about sodium and carbohydrate contentof foods such as frozen pot pies. Pilot Teacher also discussed the importance of protein with meals and snacks to help maintian muscles and weight. Pt was agreeable to trying a Premier Protein with lunch. OBJECTIVE Current nutrition orders: Dietary Orders (From admission, onward) Start Ordered 09/03/24 1109 Oral supplement -Supplement; Premier Protein (chocolate); 1 each; Take at: Lunch (Oral Nutrition Supplement) Until discontinued Question Answer Comment Type: Supplement Supplement: Premier Protein (chocolate) Size: 1 each Take at: Lunch 09/03/24 1108 09/02/24 2222 Adult Diet Regular; 60 gm Carbs (per meal) (Adult Diet) Diet effective now Question Answer Comment Diet texture: Regular Carbohydrates: 60 gm Carbs (per meal) 09/02/24 2221 Pertinent Labs: Last 3 results Lab Units 09/03/24 0527 09/02/24 2158 SODIUM P mmol/L -- 140 SODIUM mmol/L 135 -- POTASSIUM mmol/L 5.0 -- POTASSIUM P mmol/L -- 4.7 CHLORIDE P mmol/L -- 98 CHLORIDE mmol/L 96* -- BUN P mg/dL -- 81* BUN mg/dL 81* -- CREATININE mg/dL 3.35* 3.34* PHOSPHORUS INORGANIC P mg/dL -- 3.4 CALCIUM P mg/dL -- 8.9 CALCIUM mg/dL 8.4* -- MAGNESIUM RL mg/dL -- 2.6* Recent Labs Lab Units 07/29/24 0734 HEMOGLOBIN A1C % 7.5* Latest Reference Range & Units 09/02/24 23:01 09/02/24 23:23 09/03/24 00:16 09/03/24 04:20 09/03/24 07:45 09/03/24 11:32 Glucose, POCT, B 70 - 140 mg/dL 49 (L) 86 126 261 (H) 179 (H) 275 (H) (H): Data is abnormally high (L): Data is abnormally low GI Function: Last BM Date: 09/03/24, [place] Stool Chart: Type 4: Like a sausage or snake, smooth and soft, Integumentary/Wounds: Lines/Drains/Airways Wound Duration Wound 08/28/24 Other (comment) Leg Circumferential;Lower;Bilateral Bilateral Lower Leg Edema with multiple blisters 6 days Wound 09/02/24 Cellulitis Leg Bilateral <1 day Medications: Scheduled Meds:aspirin, 81 mg, oral, Daily atorvastatin, 80 mg, oral, Daily at bedtime insulin aspart, 0-13 Units, subcutaneous, With meals & bedtime insulin NPH, 10 Units, subcutaneous, Daily at bedtime insulin NPH, 15 Units, subcutaneous, QAM [START ON 09/04/2024] pantoprazole, 40 mg, oral, Daily before morning meal piperacillin-tazobactam, 2.25 g, intravenous, Q6H predniSONE, 17.5 mg, oral, Daily rOPINIRole, 0.5 mg, oral, TID sennosides-docusate sodium, 1 tablet, oral, BID warfarin, 1 mg, oral, Once Continuous Infusions:norepinephrine 16 mcg/mL in D5W 250 mL infusion, 0-0.3 mcg/kg/min, Last Rate: Stopped (09/03/24 0648) Anthropometrics: Height: 174 cm Admission Weight: 78.9 kg (09/02/2024) Current Weight: 80.2 kg (09/03/2024) [place] Body Weight (Calculated) : 69.6 kg BMI (Calculated): 26.5 kg/m?? Weight change since admission: 1.3 kg Net IO Since Admission: 1,000 mL [09/03/24 1417] Weight history: Wt Readings from Last 12 Encounters: 09/03/24 80.2 kg 08/31/24 79.9 kg 08/01/24 87.2 kg 06/11/24 93.9 kg 12/25/23 85.2 kg 10/01/23 90.2 kg 09/26/23 87.9 kg 09/18/23 85.6 kg 09/05/23 87.1 kg 08/22/23 82.6 kg Weight Change History: Pt reports that his UBW with fluids is about 183-185 lbs. Pt noted weight loss with recent admissions and reported his bathroom scale wieght was 173 lbs prior to this admit. Per the EMR the pt's wieght was trending upwards from the beginning of the year until his admission on07/24/24. The pt has lost 16.3 kg (17%) since his first admit on 07/24/24. Overall the pt has had a ne t weight loss of 6.3 kg (7.5%) since December 2023. Some wieght changes may be attributed to gains and losses in fluids. Estimated Needs: Total Calorie Needs: 4524-8282 calories/day Method to Estimate Energy Needs: kcal/kg (25-30 kcal/kg) Weight Used for Equation Calculations: 78.9 kg Total Protein Needs: 79 - 95 grams/day (Method to Estimate Protein Needs (g/kg): 1 - 1.2 gm/kg) Weight Used to Calculate Protein Needs (Kg): 78.9 kg Nutrition Diagnosis: Increased nutrient needs related to medical conditions as evidenced by increased protein and calorie needs in the setting of sepsis Malnutrition Assessment: ASPEN Criteria of Malnutrition: Nutritional Status: Malnutrition criteria not met Malnutrition in the Context of: Acute Illness or Injury Based on: Energy Intake: No Change Interpretation of Weight Loss: greater than 5% 1 month (Some wieght loss can be attributed to changes in fluid status) Body Fat: Normal Muscle Mass: Normal Fluid Accumulation: Absent 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 Pt is at risk due to changes in fluid status and multiple hospital admissions over the past 2 months. Nutrition Intervention: Interventions: Increase nutrient intake with small, frequent meals and/or snacks, Medical food supplement, Vitamin and mineral supplements, Provide education to increase nutrition knowledge, Provide counseling strategies to apply nutrition knowledge. Recommendations: RDN to order and manage ONS Multivitamin with minerals Monitoring/Evaluation: Nutrition parameter to monitor: Diet Progression/NPO Status, Meals/Supplement Intake, Skin Integrity, Fluid Balance, Ascites/Edema, Mental Status/Confusion, Weight Status, Comparative Standards, Pertinent Labs, Chewing/Swallowing, Nausea/Vomiting/Diarrhea Desired Outcome: Consume adequate nutrition orally Patient Goal(s): Consume >75% of 3 meals daily Consume >75% of 1 oral nutrition supplements daily Clinical Nutrition will continue to follow. For questions about patient's nutritional care please contact pager [phone] on weekdays 07:30-16:00 or [phone] on weekends/holidays ([facility]). documented in this encounter Nursing Notes * Jana Dc RMihir. - 09/05/2024 6:44 PM CDT Shift Goals: Clinical Goals for the Shift: Patient's pain will be well controlled Identify possible barriers to meeting goals/advancing plan of care: open wounds on lower extremities End of Shift Summary: Patient remained VSS and safe/free from falls throughout my shift. Patient's pain was well controlled with PRN oxy and tylenol. Patient sat up in the chair for all three meals. Call light appropriate. A&Ox3. Patient was started on heparin IV due to low INR. was present at bedside throughout the entirety of the shift. Problem: PAIN - ADULT Goal: PT VERBALIZES/DEMONSTRATES ADEQUATE COMFORT LEVEL OR BASELINE Outcome: Progressing Problem: KNOWLEDGE DEFICIT Goal: Patient/family/caregiver demonstrates understanding of disease process, treatment plan, medications, and discharge instructions Outcome: Progressing Problem: INFECTION - ADULT Goal: Absence of infection during hospitalization Outcome: Progressing Problem: SKIN/TISSUE INTEGRITY Goal: Oral and Nasal mucous membranes remain intact Outcome: Progressing Problem: SAFETY ADULT Goal: Maintain a safe environment Outcome: Progressing Problem: Compromised Skin Integrity Goal: Oral and Nasal mucous membranes remain intact Outcome: Progressing * Edna Wray M.S.N., R.N. - 09/04/2024 5:43 PM CDT Problem: PAIN - ADULT Goal: PT VERBALIZES/DEMONSTRATES ADEQUATE COMFORT LEVEL OR BASELINE Outcome: Progressing Problem: KNOWLEDGE DEFICIT Goal: Patient/family/caregiver demonstrates understanding of disease process, treatment plan, medications, and discharge instructions Outcome: Progressing Problem: SAFETY ADULT Goal: Maintain a safe environment Outcome: Progressing Problem: POTENTIAL OR ACTUAL PRESSURE INJURY-ADULT Goal: Achieve optimal activity and/or mobility to maintain or improve skin integrity Outcome: Progressing Shift Goals: Clinical Goals for the Shift: Patient will have pain <5. Identify possible barriers to meeting goals/advancing plan of care: Pain End of Shift Summary: A&O x3 and pleasant. Pt ambulated in room (SBA) for bathroom privileges and to increase ambulation. Endorsed 5/10 pain and given PRN Oxycodone. One BM occurrence and adequate urinary output to urinal. Weeping assessed to R lower foot w/ compression wraps intact. IV Zosyn administered and well tolerated. VSS, RA and sitting comfortably in chair. * Vipin Catalan R.R.TJarrett, L.R.T. - 09/04/2024 2:45 AM CDT Patient is a 74 y.o. male admitted on 09/02/2024 Alert Information: Plan of Care: Assess respiratory needs Principal Problem Severe Sepsis With Septic Shock (HCC) Oxygen Therapy $Delivery Method: Room air Social History Tobacco Use Smoking Status Never Smokeless Tobacco Never Tobacco Comments Smoked recreationally over 40 years ago - a few cigarettes once in a while. No results for input(s): PO2 ART, PCO2 ART, PH ART in the last 24 hours. * Jorge Luis Durham RSammi - 09/03/2024 5:21 PM CDT Problem: SAFETY ADULT Goal: Maintain a safe environment Outcome: Progressing Problem: SAFETY ADULT - RISK FOR FALL AND OR FALL INJURY Goal: Patient remains free from fall/fall injury Outcome: Progressing Shift Goals: Clinical Goals for the Shift: MAP > 65 Identify possible barriers to meeting goals/advancing plan of care: dehydration End of Shift Summary: Pt calm and cooperative with all cares this evening. MAP goal achieved. Ambulated to commode, had BM. WOC RN came to look at legs.Slept for most of the afternoon. documented in this encounter Miscellaneous Notes * Hospital Course - Madhavi Maloney APRN, C.NKory, M.S.N. - 09/03/2024 5:20 AM CDT Jong Harris is a 74 y.o. male patient who presents to the Medical Intensive Care Unit (MICU)from [facility] via ground ambulance after presenting to their Emergency Department for evaluation of fatigue, weakness, increased right lower extremity pain and redness. Symptoms began the morning of September 02, 2024. Past medical history includes: CABG and AVR (2022), Postoperative restrictive pericarditis, Hypertension, Hyperlipidemia, T2DM, Lower extremity cellulitis (Positive swab for Pseudomonas) CKD and history of CVA. Recent pertinent history includes admission to the Cardiology Services on August 27, 2024 for heart failure exacerbation as well as lower extremity edema and cellulitis. Patient was discharged home on August 31, 2024 with instructions to increase his Torsemide to 60 mg twice daily as well as to start Duricef for his right lower extremity cellulitis. In the Emergency Department at [place], patient was found to be hypotensive (80's/40's). For this reason, patient was given 500 ml of crystalloids followed by the initiation of Norepinephrine. Labs in the Emergency Department were significant for an elevated white count at 15.90 and C-reactive of 2.9. US of the bilateral lower extremities was negative. Patient was given a dose of Clindamycin for his right lower extremity cellulitis. Upon arrival to the medical intensive care unit, he was rapidly titrated off of Norepinephrine support and continued on Piperacillin-Tazobactam and Vancomycin for bilateral lower extremity cellulitis. His home Prednisone was resumed for his restrictive pericarditis but his Colchicine was held due to significant acute kidney injury. Due to continued stability, he was transferred to a general medicine service on 09/04/2024. documented in this encounter Plan of Treatment Upcoming Encounters Date Type Department Care Team (Latest Contact Info) Description 09/08/2024 7:15 AM CDT Clinical Communication Virtual Review in [place], [place] [address] [place] [phone] 09/16/2024 1:00 PM DRY PRESS OPERATOR Appointment Department of Radiology, [facility], in [place], [place] [address] [place] [phone] Deven Clement M.D., M.S. [address] [place] [phone] 09/16/2024 1:20 PM DRY PRESS OPERATOR Appointment Department of Laboratory Medicine and Pathology, [facility] in [address] [phone] Deven Clement M.D., M.S. [address] [place] [phone] 09/16/2024 1:40 PM DRY PRESS OPERATOR Ancillary Procedure Department of Cardiovascular Medicine in [address] [phone] Deven Clement M.D., M.S. [address] [place] [phone] 09/16/2024 4:00 PM DRY PRESS OPERATOR Comprehensive Visit Department of Cardiovascular Medicine in [address] [phone] Keagan Tellez M.D. [address] [place] [phone] Pending Results Name Type Priority Associated Diagnoses Date /Time Bacteria / Jaida Culture, Blood (repeat draw) Microbiology Routine 09/02/2024 11:07 PM CDT Bacteria / Jaida Culture, Blood (repeat draw) Microbiology Routine 09/02/2024 11:38 PM CDT Scheduled Orders Name Type Priority Associated Diagnoses Order Schedule Prothrombin Time (PT) Lab Routine Lisa ly for 7 Days starting 09/03/2024 until 09/09/2024, 4 completed Glucose, POCT Point of Care Testing-Docked Device Timed As needed until discontinued starting 09/02/2024 Glucose, POCT Point of Care Testing-Docked Device Timed As needed until discontinued starting 09/02/2024 Glucose, POCT Point of Care Testing-Docked Device Routine 0800, 1200, 1700, 2100 until discontinued starting 09/03/2024, 14 completed Glucose, Random Lab Timed As needed until discontinued starting 09/03/2024 CBC without Differential Lab Routine Daily for 7 Days starting 09/06/2024 until 09/12/2024 Heparin Anti-Xa Assay Lab Routine AM collection: 0405 (default) for 1 Occurrences starting 09/07/2024 until 09/07/2024 Basic Metabolic Panel Lab Routine Lisa ly for 3 Days starting 09/07/2024 until 09/09/2024 Magnesium Lab Routine Daily for 3 Da ys starting 09/07/2024 until 09/09/2024 Phosphorus Inorganic Lab Routine Fernando y for 3 Days starting 09/07/2024 until 09/09/2024 documented as of this encounter Procedures * The patient is currently admitted. The information in this section might not be complete until the patient is discharged. Procedure Name Priority Date/Time Associated Diagnosis Comments GLUCOSE POCT, B Routine 09/06/2024 12:17 PM CDT GLUCOSE POCT, B Routine 09/06/2024 9:23 AM CDT GLUCOSE POCT, B Routine 09/06/2024 7:51 AM CDT SPSMA RESULT Routine 09/06/2024 7:20 AM CDT PROTHROMBIN TIME (PT), P Routine 09/06/2024 7:20 AM CDT HEPARIN LEVEL ANTI-XA ASSAY, P Routine 09/06/2024 7:20 AM CDT CBC WITHOUT DIFFERENTIAL, B Routine 09/06/2024 7:20 AM CDT PHOSPHORUS (INORGANIC), S Routine 09/06/2024 7:20 AM CDT MAGNESIUM, S Routine 09/06/2024 7:20 AM CDT BASIC METABOLIC PANEL, S/P Routine 09/06/2024 7:20 AM CDT HEPARIN LEVEL [...] POCT, B Routine 09/05/2024 7:54 AM CDT PROTHROMBIN TIME (PT), P Routine 09/05/2024 7:32 AM CDT CBC WITHOUT DIFFERENTIAL, B Routine 09/05/2024 7:32 AM CDT PHOSPHORUS (INORGANIC), S Routine 09/05/2024 7:32 AM CDT ALBUMIN, S/P Routine 09/05/2024 7:32 AM CDT BASIC METABOLIC PANEL, S/P Routine 09/05/2024 7:32 AM CDT GLUCOSE POCT, B Routine 09/04/2024 9:17 PM CDT GLUCOSE POCT, B Routine 09/04/2024 5:35 PM CDT GLUCOSE POCT, B Routine 09/04/2024 5:06 PM CDT GLUCOSE POCT, B Routine 09/04/2024 12:11 PM CDT GLUCOSE POCT, B Routine 09/04/2024 8:36 AM CDT GLUCOSE POCT, B Routine 09/04/2024 8:20 AM CDT GLUCOSE POCT, B Routine 09/04/2024 7:40 AM CDT GLUCOSE POCT, B Routine 09/04/2024 7:24 AM CDT PROTHROMBIN TIME (PT), P STAT 09/04/2024 6:13 AM CDT CBC WITHOUT DIFFERENTIAL, B STAT 09/04/2024 6:13 AM CDT BASIC METABOLIC PANEL, S/P STAT 09/04/2024 6:13 AM CDT GLUCOSE POCT, B Routine 09/04/2024 5:02 AM CDT PROTHROMBIN TIME (PT), P Routine 09/04/2024 3:36 AM CDT CBC WITHOUT DIFFERENTIAL, B Routine 09/04/2024 3:36 AM CDT VANCOMYCIN, RANDOM, S Timed 09/04/2024 12:29 AM CDT GLUCOSE POCT, B Routine 09/03/2024 11:40 PM CDT GLUCOSE POCT, B Routine 09/03/2024 8:42 PM CDT GLUCOSE POCT, B Routine 09/03/2024 4:48 PM CDT DIPSTICK, U Routine 09/03/2024 3:49 PM CDT MICROSCOPIC MANUAL Routine 09/03/2024 3: 49 PM CDT PH, U Routine 09/03/2024 3:49 PM CDT OSMOLALITY, U Routine 09/03/2024 3:49 PM CDT URINALYSIS WITH MICROSCOPIC Routine 09/03/2024 3:49 PM CDT GLUCOSE POCT, B Routine 09/03/2024 11:32 AM CDT GLUCOSE POCT, B Routine 09/03/2024 7:45 AM CDT ECG Routine 09/03/2024 6:51 AM CDT PROTHROMBIN TIME (PT), P Routine 09/03/2024 5:27 AM CDT CBC WITHOUT DIFFERENTIAL, B Routine 09/03/2024 5:27 AM CDT LACTATE, B/P Routine 09/03/2024 5:27 AM CDT BASIC METABOLIC PANEL, S/P Routine 09/03/2024 5:27 AM CDT CYSTATIN C WITH EGFR Routine 09/03/2024 5:23 AM CDT GLUCOSE POCT, B Routine 09/03/2024 4:20 AM CDT TROPONIN T, 2H/6H REFLEX, 5TH GEN, P Timed 09/03/2024 12:27 AM CDT GLUCOSE POCT, B Routine 09/03/2024 12:16 AM CDT MRSA/STAPHYLOCOCCUS AUREUS, NASAL, BY PCR Routine 09/03/2024 12:09 AM CDT BACTERIA / JAIDA CULTURE, BLOOD Routine 09/02/2024 11:38 PM CDT GLUCOSE POCT, B Routine 09/02/2024 11:23 PM CDT BACTERIA / JAIDA CULTURE, BLOOD Routine 09/02/2024 11:07 PM CDT LACTATE, B/P STAT 09/02/2024 11:07 PM CDT GLUCOSE POCT, B Routine 09/02/2024 11:01 PM CDT TROPONIN T, BASELINE, 5TH GEN, P Routine 09/02/2024 9:58 PM CDT HEPATIC FUNCTION PANEL, S STAT 09/02/2024 9:58 PM CDT PROCALCITONIN, S STAT 09/02/2024 9:58 PM CDT PROTHROMBIN TIME (PT), P STAT 09/02/2024 9:58 PM CDT CBC WITHOUT DIFFERENTIAL, B STAT 09/02/2024 9:58 PM CDT PHOSPHORUS (INORGANIC), S STAT 09/02/2024 9:58 PM CDT MAGNESIUM, S STAT 09/02/2024 9:58 PM CDT LIPASE, S/P STAT 09/02/2024 9:58 PM CDT LACTATE, B/P STAT 09/02/2024 9:58 PM CDT BASIC METABOLIC PANEL, S/P STAT 09/02/2024 9:58 PM CDT C-REACTIVE PROTEIN (CRP), S/P Routine 09/02/2024 9:52 PM CDT CREATINE KINASE (CK), S Routine 09/02/20 9:52 PM CDT documented in this encounter Results * (ABNORMAL) Glucose, POCT (09/06/2024 12:17 PM CDT) Glucose, POCT, B 153(H) 70 - 140 mg/dL 09/06/2024 12:21 PM CDT PCLX Site Capillary 09/06/2024 12:21 PM CDT PCLX Last Intake 3-4 hours 09/06/2024 12:21 PM CDT PCLX Blood 09/06/2024 12:1 7 PM CDT 09/06/2024 12:22 PM CDT us Unknown Provider LAB POCT ORDERABLES-MANUAL Eliana l Result Performing Organization Address City/[facility]/ZIP Co de Phone Number [facility] SERVICES [address] [place] [address] PCLX [facility] POC [address] [place] [address] * (ABNORMAL) Glucose, POCT (09/06/2024 9:23 AM CDT) [facility] Glucose, POCT, B 149(H) 70 - 140 mg/dL 09/06/2024 10:04 AM CDT PCLX Site Capillary 09/06/2024 10:04 AM CDT PCLX Last Intake 1-2 hours 09/06/2024 10:04 AM CDT PCLX Blood 09/06/2024 9:23 AM CDT 09/06/2024 10:04 AM CDT us Unknown Provider LAB POCT ORDERABLES-MANUAL Eliana l Result Performing Organization Address City/[facility]/ZIP Co de Phone Number [facility] SERVICES [address] PCLX [facility] POC [address] [place] [address] * (ABNORMAL) Glucose, POCT (09/06/2024 7:51 AM CDT) Glucose, POCT, B 66(L) 70 - 140 mg/dL 09/06/2024 8:14 AM CDT PCLX Site Capillary 09/06/2024 8:14 AM CDT PCLX Last Intake 1-2 hours 09/06/2024 8:14 AM CDT PCLX Blood 09/06/2024 7:51 AM CDT 09/06/2024 8:14 AM CDT us Unknown Provider LAB POCT ORDERABLES-MANUAL Eliana l Result Performing Organization Address City/[facility]/ZIP Co de Phone Number POC [facility] SERVICES [address] [place] [address], [facility] PCLX [facility] [address] [place] [address] * (ABNORMAL) Morphology Eval (special smear) (09/06/2024 7:20 AM CDT) Neutrophilic Segs and Bands 80(H) 50 - [...] CDT 09/06/2024 7:20 AM CDT us Nori Benítez M.D. LAB BLOOD ADD-ON Final Resu lt Performing Organization Address City/[facility]/ZIP Co de Phone Number [facility] [address] [place] [address], [facility] DHPM [facility] [address] [place] [address] * Heparin Anti-Xa Assay (09/06/2024 7:20 AM CDT) Heparin Anti-Xa, P 0.35 IU/mL 2023 9:02 AM CDT DT Comment: UFH therapeutic range: ?? 0.30-0.70 IU/mL [...] 7:20 AM CDT 09/06/2024 8:15 AM CDT Renzo Tejada P.A.-C. LAB BLOOD NON ADD-ON Fin al Result Performing Organization Address City/[facility]/ZIP Co de Phone Number [facility] [address] [place] [address] * Phosphorus Inorganic (09/06/2024 7:20 AM CDT) Pathologist [facility] Phosphorus (Inorganic), S 3.1 2.5 - 4.5 mg/dL 09/06/2024 8:40 AM CDT DT Blood (Blood, Venous) 09/06/2024 7:20 AM CDT 09/06/2024 8:23 AM CDT Nori Benítez M.D. LAB BLOOD ADD-ON Final Resu lt [facility] [address] [place] [address] * (ABNORMAL) Magnesium (09/06/2024 7:20 AM CDT) Magnesium, S 2.7(H) 1.7 - 2.3 mg/dL 09/06/2024 8:40 AM CDT DTL Blood (Blood, Venous) 09/06/2024 7:20 AM CDT 09/06/2024 8:23 AM CDT Nori Benítez M.D. LAB BLOOD ADD-ON Final Resu lt [facility] [address] [place] [address], [facility] [address] [place] [address] * (ABNORMAL) Basic Metabolic Panel (09/06/2024 7:20 AM CDT) Potassium, S 4.7 3.6 - 5.2 mmol/L [...] 7:20 AM CDT 09/06/2024 8:23 AM CDT Cata Hua APRN.N.P., M.S.N. LAB BLOOD AD D-ON Final Result [facility] [address] [place] [address], [facility] DTL [facility] [address] [place] [address] * (ABNORMAL) CBC without Differential (09/06/2024 7:20 AM CDT) Hemoglobin 11.0(L) 13.2 - 16.6 g/dL 09/06/2024 [...] CDT 09/06/2024 8:15 AM CDT Jayro Post APRN C.N.P., M.S.N. LAB BLOOD AD D-ON Final Result [facility] [address] [place], [place] [address] [address] [place] [address] * (ABNORMAL) Prothrombin Time (PT) (09/06/2024 7:20 AM CDT) Prothrombin Time, P 21.3(H) 9.4 - 12.5 sec 09/06/2024 8:44 AM CDT DT INR 1.9 0.9 - 1.1 09/06/2024 8:44 AM CDT DT Comment: ----ADDITIONAL INFORMATION---- Standard intensity warfarin therapeutic range: 2.0 to 3.0 ?? High intensity warfarin therapeutic range: 2.5 to 3.5 Blood (Blood, Venous) 09/06/2024 7:20 AM CDT 09/06/2024 8:15 AM CDT Yosef Lieberman APRN, C.N.P., D.N.P. LAB BLOOD AD D-ON Final Result [facility] [address] [place], [place] [id number] [place] [address] [facility] [address] [place] [address] * Heparin Anti-Xa Assay (09/06/2024 12:59 AM CDT) [facility] Heparin Anti-Xa, P 0.31 IU/mL 2023 1:57 AM CDT DT Comment: UFH therapeutic range: ?? 0.30-0.70 IU/mL LMWH therapeutic range: 0.50-1.00 IU/mL 0.50-1.00 IU/mL for twice daily dosing ?? 1.00-2.00 IU/mL for once daily dosing (sample obtained 4-6 hours following subcutaneous injection) LMWH prophylactic range:0.10-0.30 IU/mL ----ADDITIONAL INFORMATION---- Heparin Anti-Xa is used to measure heparin concentrations in patients receiving low molecular weight heparin (LMWH) or unfractionated heparin (UFH). Blood (Blood, Venous) 09/06/2024 12:59 AM CDT 09/06/2024 1:27 AM CDT us Nori Benítez M.D. LAB BLOOD NON ADD-ON Final Result [facility] [address] [place] [address], [facility] DTL [facility] [address] [place] [address] * (ABNORMAL) Glucose, POCT (09/05/2024 9:14 PM CDT) Glucose, POCT, B 320(H) 70 - 140 mg/dL 09/05/2024 9:23 PM CDT PCLX Site Capillary 09/05/2024 9:23 PM CDT PCLX Last Intake 3-4 hours 09/05/2024 9:23 PM CDT PCLX Blood 09/05/2024 9:14 PM CDT 09/05/2024 9:23 PM CDT us Unknown Provider LAB POCT ORDERABLES-MANUAL Eliana l Result Performing Organization Address [facility] Co de Phone Number [facility] [address] [place] [address], [facility] PCLX [facility] [address] [place] [address] * (ABNORMAL) Glucose, POCT (09/05/2024 5:40 PM CDT) Glucose, POCT, B 367(H) 70 - 140 mg/dL 09/05/2024 5:43 PM CDT PCLX Site Capillary 09/05/2024 5:43 PM CDT PCLX Last Intake 3-4 hours 09/05/2024 5:43 PM CDT PCLX Blood 09/05/2024 5:40 PM CDT 09/05/2024 5:43 PM CDT us Unknown Provider LAB POCT ORDERABLES-MANUAL Eliana l Result [facility] [address] [place] [address], [facility] PCLX [facility] POC [address] [place] [address] * Heparin Anti-Xa Assay (09/05/2024 5:39 PM CDT) [facility] Heparin Anti-Xa, P 0.38 IU/mL 2023 6:31 PM CDT DT Comment: UFH therapeutic range: ?? 0.30-0.70 IU/mL LMWH therapeutic range: 0.50-1.00 IU/mL 0.50-1.00 IU/mL for twice daily dosing ?? 1.00-2.00 IU/mL for once daily dosing (sample obtained 4-6 hours following subcutaneous injection) LMWH prophylactic range:0.10-0.30 IU/mL ----ADDITIONAL INFORMATION---- Heparin Anti-Xa is used to measure heparin concentrations in patients receiving low molecular weight heparin (LMWH) or unfractionated heparin (UFH). Blood (Blood, Venous) 09/05/2024 5:39 PM CDT 09/05/2024 6:15 PM CDT us Beatriz Hernandez P.A.-C. LAB BLOOD NON ADD-ON Final Result [facility] [address] [place] [address], [facility] [address] [address] * (ABNORMAL) Glucose, POCT (09/05/2024 12:45 PM CDT) [facility] Glucose, POCT, B 284(H) 70 - 140 mg/dL 09/05/2024 12:47 PM CDT PCLX Site Capillary 09/05/2024 12:47 PM CDT PCLX Last Intake 3-4 hours 09/05/2024 12:47 PM CDT PCLX Blood 09/05/2024 12:4 5 PM CDT 09/05/2024 12:48 PM CDT us Unknown Provider LAB POCT ORDERABLES-MANUAL Eliana l Result Performing Organization Address City/[facility]/ZIP Co de Phone Number POC [facility] [address] [place] [address], [facility] PCLX [facility] [address] [place] [address] * APTT (Activated Partial Thromboplastin Time) (09/05/2024 10:01 AM CDT) Activated Partial Thrombopl Time, P 37 25 - 37 sec 09/05/2024 10:36 AM CDT STMA Blood (Blood, Venous) 09/05/2024 10:01 AM CDT 09/05/2024 10:09 AM CDT us Nori Benítez M.D. LAB BLOOD ADD-ON Final Resu lt Performing Organization Address City/[facility] Co de Phone Number [facility] [address] [place] [address], [facility] STMA [facility] [address] [place] [address] * Glucose, POCT (09/05/2024 7:54 AM CDT) Pathologist [facility] Glucose, POCT, B 137 70 - 140 mg/dL 09/05/2024 7:57 AM CDT PCLX Site Capillary 09/05/2024 7:57 AM CDT PCLX Last Intake > 4 hours 09/05/2024 7:57 AM CDT PCLX Blood 09/05/2024 7:54 AM CDT 09/05/2024 7:57 AM CDT us Unknown Provider LAB POCT ORDERABLES-MANUAL Eliana l Result Performing Organization Address City/[facility] Co de Phone Number POC [facility] [address] [place] [address], [facility] PCLX [facility] [address] [place] [address] * Phosphorus Inorganic (09/05/2024 7:32 AM CDT) Pathologist [facility] Phosphorus (Inorganic), S 3.7 2.5 - 4.5 mg/dL 09/05/2024 9:01 AM CDT DTL Blood (Blood, Venous) 09/05/2024 7:32 AM CDT 09/05/2024 8:42 AM CDT Renzo JenningsA.-C. LAB BLOOD ADD-ON Final R esult Performing Organization Address City/[facility]/ZIP Co de Phone Number [facility] [address] [place] [address], [facility] 200 [place] [address] * (ABNORMAL) Albumin (09/05/2024 7:32 AM CDT) Albumin, S 3.2(L) 3.5 - 5.0 g/dL 09/05/2024 9:01 AM CDT DTL Blood (Blood, Venous) 09/05/2024 7:32 AM CDT 09/05/2024 8:42 AM CDT Renzo JenningsAJarrett-C. LAB BLOOD ADD-ON Final R [facility] Performing Organization Address City/[facility] Co de Phone Number [facility] [address] [place] [address], [facility] [address] [place] [address] * (ABNORMAL) Basic Metabolic Panel (09/05/2024 7:32 AM CDT) Potassium, S 4.7 3.6 - 5.2 mmol/L 09/05/2024 9:01 AM CDT DTL Sodium, S 137 135 - 145 mmol/L 09/05/2024 9:01 AM CDT DTL Chloride, S 99 98 - 107 mmol/L 09/05/2024 9:01 AM CDT DTL Bicarbonate, S 27 22 - 29 mmol/L 09/05/2024 9:01 AM CDT DTL Anion Gap 11 7 - 15 09/05/2024 9:01 AM CDT DTL BUN (Blood Urea Nitrogen), S 83(H) 8 - 24 mg/dL 09/05/2024 9:01 AM CDT DTL Creatinine 2.79(H) 0.74 - 1.35 mg/dL 09/05/2024 9:01 AM CDT DTL Estimated GFR (eGFR) 23(L) >=60 mL/min/BSA 09/05/2024 9:01 AM CDT DTL Comment: Estimated GFR calculated using the 2020 CKD_EPI creatinine equation. Calcium, Total, S 8.7(L) 8.8 - 10.2 mg/dL 09/05/2024 9:01 AM CDT DTL Glucose, S 136 70 - 140 mg/dL 09/05/2024 9:01 AM CDT DTL Blood (Blood, Venous) 09/05/2024 7:32 AM CDT 09/05/2024 8:42 AM CDT us Jayro Post APRN, C.N.P., M.S.N. LAB BLOOD AD D-ON Final Result [facility] [address] [facility] [address] [place] [address] * (ABNORMAL) CBC without Differential (09/05/2024 7:32 AM CDT) Hemoglobin 11.5(L) 13.2 - 16.6 g/dL 09/05/2024 8:45 AM CDT DTL Hematocrit 35.6(L) 38.3 - 48.6 % 09/05/2024 8:45 AM CDT DTL Erythrocytes 3.95(L) 4.35 - 5.65 x10(12)/L 09/05/2024 8:45 AM CDT DTL MCV 90.1 78.2 - 97.9 fL 09/05/2024 8:45 AM CDT DTL RBC Distrib Width 15.9(H) 11.8 - 14.5 % 09/05/2024 8:45 AM CDT DTL Platelet Count 75(L) 135 - 317 x10(9)/L 09/05/2024 8:45 AM CDT DTL Leukocytes 13.9(H) 3.4 - 9.6 x10(9)/L 09/05/2024 8:45 AM CDT DTL Blood (Blood, Venous) 09/05/2024 7:32 AM CDT 09/05/2024 8:27 AM CDT Jayro Post APRN, C.N.P., M.S.N. LAB BLOOD AD D-ON Final Result Performing Organization Address City/[facility] Co de Phone Number [facility] [address] [place] [address] * (ABNORMAL) Prothrombin Time (PT) (09/05/2024 7:32 AM CDT) Prothrombin Time, P 20.8(H) 9.4 - 12.5 sec 09/05/2024 8:50 AM CDT DTL INR 1.9 0.9 - 1.1 09/05/2024 8:50 AM CDT DTL Comment: ----ADDITIONAL INFORMATION---- Standard intensity warfarin therapeutic range: 2.0 to 3.0 ?? High intensity warfarin therapeutic range: 2.5 to 3.5 Blood (Blood, Venous) 09/05/2024 7:32 AM CDT 09/05/2024 8:27 AM CDT Yosef iLeberman APRN, C.N.P., D.N.P. LAB BLOOD AD D-ON Final Result Performing Organization Address City/[facility]/ZIP Co de Phone Number [facility] [address] [place], [place] [id number] [place] [address] [place] [address] * (ABNORMAL) Glucose, POCT (09/04/2024 9:17 PM CDT) Glucose, POCT, B 333(H) 70 - 140 mg/dL 09/04/2024 9:35 PM CDT PCLX Site Capillary 09/04/2024 9:35 PM CDT PCLX Last Intake 3-4 hours 09/04/2024 9:35 PM CDT PCLX Blood 09/04/2024 9:17 PM CDT 09/04/2024 9:36 PM CDT us Unknown Provider LAB POCT ORDERABLES-MANUAL Eliana l Result Performing Organization Address [facility]/ZIP Co de Phone Number POC [facility] [address] [place] [address], [facility] PCLX [facility] P[facility] [address] [place] [address] * (ABNORMAL) Glucose, POCT (09/04/2024 5:35 PM CDT) Glucose, POCT, B 380(H) 70 - 140 mg/dL 09/04/2024 5:42 PM CDT PCLX Site Capillary 09/04/2024 5:42 PM CDT PCLX Last Intake 3-4 hours 09/04/2024 5:42 PM CDT PCLX Blood 09/04/2024 5:35 PM CDT 09/04/2024 5:42 PM CDT us Unknown Provider LAB POCT ORDERABLES-MANUAL Eliana l Result Performing Organization Address [facility] Co de Phone Number POC [facility] [address] [place] [address], [facility] PCLX [facility] P[facility] [address] [place] [address] * (ABNORMAL) Glucose, POCT (09/04/2024 5:06 PM CDT) Glucose, POCT, B 360(H) 70 - 140 mg/dL 09/04/2024 5:42 PM CDT PCLX Site Capillary 09/04/2024 5:42 PM CDT PCLX Last Intake 3-4 hours 09/04/2024 5:42 PM CDT PCLX Blood 09/04/2024 5:06 PM CDT 09/04/2024 5:42 PM CDT us Unknown Provider LAB POCT ORDERABLES-MANUAL Eliana l Result Performing Organization Address City/[facility]/ZIP Co de Phone Number POC [facility] [address] [place] [address], [facility] PCLX [facility] P[facility] [address] [place] [address] * (ABNORMAL) Glucose, POCT (09/04/2024 12:11 PM CDT) Glucose, POCT, B 189(H) 70 - 140 mg/dL 09/04/2024 12:12 PM CDT PCLX Site Capillary 09/04/2024 12:12 PM CDT PCLX Blood 09/04/2024 12:1 1 PM CDT 09/04/2024 12:12 PM CDT us Unknown Provider LAB POCT ORDERABLES-MANUAL Eliana l Result Performing Organization Address [facility] Co de Phone Number [facility] [address] [place] [address], [facility] PCLX [facility] P[facility] [address] [place] [address] * (ABNORMAL) Glucose, POCT (09/04/2024 8:36 AM CDT) Glucose, POCT, B 154(H) 70 - 140 mg/dL 09/04/2024 8:37 AM CDT PCLX Site Capillary 09/04/2024 8:37 AM CDT PCLX Blood 09/04/2024 8:36 AM CDT 09/04/2024 8:37 AM CDT us Unknown Provider LAB POCT ORDERABLES-MANUAL Eliana l Result Performing Organization Address City/[facility]/ZIP Co de Phone Number [facility] [address] [place] [id number], [facility] PCLX [facility] POC [address] [place] [address] * (ABNORMAL) Glucose, POCT (09/04/2024 8:20 AM CDT) Glucose, POCT, B 143(H) 70 - 140 mg/dL 09/04/2024 8:21 AM CDT PCLX Site Capillary 09/04/2024 8:21 AM CDT PCLX Blood 09/04/2024 8:20 AM CDT 09/04/2024 8:22 AM CDT us Unknown Provider LAB POCT ORDERABLES-MANUAL Eliana l Result Performing Organization Address City/[facility]/ZIP Co de Phone Number POC [facility] [address] [place] [address], [place] PCLX [facility] P[facility] [address] [place] [address] * Glucose, POCT (09/04/2024 7:40 AM CDT) Glucose, POCT, B 70 70 - 140 mg/dL 09/04/2024 7:42 AM CDT PCLX Site Capillary 09/04/2024 7:42 AM CDT PCLX Blood 09/04/2024 7:40 AM CDT 09/04/2024 7:42 AM CDT us Unknown Provider LAB POCT ORDERABLES-MANUAL Eliana l Result Performing Organization Address [facility]/ZIP Co de Phone Number POC [facility] [address] [place] [address], [place] PCLX [facility] P[facility] [address] [place] [address] * (ABNORMAL) Glucose, POCT (09/04/2024 7:24 AM CDT) Glucose, POCT, B 56(L) 70 - 140 mg/dL 09/04/2024 7:26 AM CDT PCLX Site Capillary 09/04/2024 7:26 AM CDT PCLX Blood 09/04/2024 7:24 AM CDT 09/04/2024 7:26 AM CDT us Unknown Provider LAB POCT ORDERABLES-MANUAL Eliana l Result Performing Organization Address City/[facility]/ZIP Co de Phone Number POC [facility] [address] [place] [address], [place] PCLX [facility] [address] [place] [address] * (ABNORMAL) Basic Metabolic Panel (09/04/2024 6:13 AM CDT) Pathologist [facility] Potassium, S 4.6 3.6 - 5.2 mmol/L 09/04/2024 8:09 AM CDT DTL Sodium, S 138 135 - 145 mmol/L 09/04/2024 8:09 AM CDT DTL Chloride, S 98 98 - 107 mmol/L 09/04/2024 8:09 AM CDT DTL Bicarbonate, S 27 22 - 29 mmol/L 09/04/2024 8:09 AM CDT DTL Anion Gap 13 7 - 15 09/04/2024 8:09 AM CDT DTL BUN (Blood Urea Nitrogen), S 87(H) 8 - 24 mg/dL 09/04/2024 8:09 AM CDT DTL Creatinine 3.14(H) 0.74 - 1.35 mg/dL 09/04/2024 8:09 AM CDT DTL Estimated GFR (eGFR) 20(L) >=60 mL/min/BSA 09/04/2024 8:09 AM CDT DTL Comment: Estimated GFR calculated using the 2020 CKD_EPI creatinine equation. Calcium, Total, S 8.4(L) 8.8 - 10.2 mg/dL 09/04/2024 8:09 AM CDT DTL Glucose, S 68(L) 70 - 140 mg/dL 09/04/2024 8:09 AM CDT DTL Blood 09/04/2024 6:13 AM CDT 09/04/2024 6:53 AM CDT us Yosef Lieberman APRN, C.N.P., D.N.P. LAB BLOOD AD D-ON Final Result [facility] [address] [place] [address], [place] DTL [facility] [address] [place] [address] * (ABNORMAL) CBC without Differential (09/04/2024 6:13 AM CDT) Hemoglobin 11.4(L) 13.2 - 16.6 g/dL 09/04/2024 6:42 AM CDT DTL Hematocrit 34.5(L) 38.3 - 48.6 % 09/04/2024 6:42 AM CDT DTL Erythrocytes 3.85(L) 4.35 - 5.65 x10(12)/L 09/04/2024 6:42 AM CDT DTL MCV 89.6 78.2 - 97.9 fL 09/04/2024 6:42 AM CDT DTL RBC Distrib Width 16.1(H) 11.8 - 14.5 % 09/04/2024 6:42 AM CDT DTL Platelet Count 75(L) 135 - 317 x10(9)/L 09/04/2024 6:42 AM CDT DTL Leukocytes 16.0(H) 3.4 - 9.6 x10(9)/L 09/04/2024 6:42 AM CDT DTL Blood 09/04/2024 6:13 AM CDT 09/04/2024 6:36 AM CDT Yosef Lieberman APRN, C.N.P., D.N.P. LAB BLOOD [place] [address], [facility] [place] [place] [address] * (ABNORMAL) Prothrombin Time (PT) (09/04/2024 6:13 AM CDT) Prothrombin Time, P 31.3(H) 9.4 - 12.5 sec 09/04/2024 6:49 AM CDT DTL INR 2.8 0.9 - 1.1 09/04/2024 6:49 AM CDT DTL Comment: ----ADDITIONAL INFORMATION---- Standard intensity warfarin therapeutic range: 2.0 to 3.0 ?? High intensity warfarin therapeutic range: 2.5 to 3.5 Blood 09/04/2024 6:13 AM CDT 09/04/2024 6:36 AM CDT Yosef Lieberman APRN, C.N.P., Emilia.N.P. LAB BLOOD AD D-ON Final Result Performing Organization Address City/[facility]/ZIP Co de Phone Number [facility] [address] [place] [address], [facility] DTL [facility] [address] [place] [address] * Glucose, POCT (09/04/2024 5:02 AM CDT) Glucose, POCT, B 98 70 - 140 mg/dL 09/04/2024 5:03 AM CDT PCLX Site Capillary 09/04/2024 5:03 AM CDT PCLX Last Intake > 4 hours 09/04/2024 5:03 AM CDT PCLX Blood 09/04/2024 5:02 AM CDT 09/04/2024 5:03 AM CDT Unknown Provider LAB POCT ORDERABLES-MANUAL Eliana l Result Performing Organization Address [facility]/ZIP Co de Phone Number POC [facility] [address] [place] [address], [facility] PCLX [facility] [address] [place] [address] * CBC without Differential (09/04/2024 3:36 AM CDT) Hemoglobin CANCELED 13.2 - 16.6 g/dL 09/04/2024 5:50 AM CDT DTL Comment: REVISED RESULTS ----PREVIOUSLY REPORTED ---- 9.6 g/dL Flagged as: Abnormal_Low (Reported 09/04/2024 03:23) Hematocrit CANCELED 38.3 - 48.6 % 09/04/2024 5:50 AM CDT DTL Comment: REVISED RESULTS ----PREVIOUSLY REPORTED ---- 30.6 % Flagged as: Abnormal_Low (Reported 09/04/2024 03:23) Erythrocytes CANCELED 4.35 - 5.65 x10(12)/L 09/04/2024 5:50 AM CDT DTL Comment: REVISED RESULTS ----PREVIOUSLY REPORTED ---- 3.36 x10(12)/L Flagged as: Abnormal_Low (Reported 09/04/2024 03:23) MCV CANCELED 78.2 - 97.9 fL 09/04/2024 5:50 AM CDT DTL Comment: REVISED RESULTS ----PREVIOUSLY REPORTED ---- 91.1 fL Flagged as: Normal (Reported 09/04/2024 03:23) RBC Distrib Width CANCELED 11.8 - 14.5 % 09/04/2024 5:50 AM CDT DTL Comment: REVISED RESULTS ----PREVIOUSLY REPORTED ---- 15.9 % Flagged as: Abnormal_High (Reported 09/04/2024 03:23) Platelet Count CANCELED 135 - 317 x10(9)/L 09/04/2024 5:50 AM CDT DTL Comment: REVISED RESULTS ----PREVIOUSLY REPORTED ---- 62 x10(9)/L Flagged as: Abnormal_Low (Reported 09/04/2024 03:23) Leukocytes CANCELED 3.4 - 9.6 x10(9)/L 09/04/2024 5:50 AM CDT DTL Comment: REVISED RESULTS ----PREVIOUSLY REPORTED ---- 13.0 x10(9)/L Flagged as: Abnormal_High (Reported 09/04/2024 03:23) Blood (Blood, Venous) 09/04/2024 3:36 AM CDT 09/04/2024 4:17 AM CDT Narrative [facility] - 09/04/2024 5:50 AM CDT CBC without Differential was cancelled on 09/04/2024 at 04:50; Specimen may be contaminated. !CNCL! Redraw has been ordered and is in progress. us Jayro Post APRN C.N.P., M.S.N. LAB BLOOD AD D-ON Edited Result - Final [facility] [address] [place] [address], [facility] DTL [facility] [address] [place] [address] * Prothrombin Time (PT) (09/04/2024 3:36 AM CDT) Pathologist [facility] Prothrombin Time, P CANCELED 9.4 - 12.5 sec 09/04/2024 5:50 AM CDT DTL Comment: REVISED RESULTS ----PREVIOUSLY REPORTED ---- 42.8 sec Flagged as: Abnormal_High (Reported 09/04/2024 03:39) INR CANCELED 0.9 - 1.1 09/04/2024 5:50 AM CDT DTL Comment: REVISED RESULTS ----ADDITIONAL INFORMATION---- Standard intensity warfarin therapeutic range: 2.0 to 3.0 ?? High intensity warfarin therapeutic range: 2.5 to 3.5 ----PREVIOUSLY REPORTED ---- 3.8 Flagged as: N/A (Reported 09/04/2024 03:39) Blood (Blood, Venous) 09/04/2024 3:36 AM CDT 09/04/2024 4:17 AM CDT Narrative [facility] - 09/04/2024 5:50 AM CDT Prothrombin Time, P was cancelled on 09/04/2024 at 04:50; Specimen may be contaminated. !CNCL! Redraw has been ordered and is in progress. Yosef Lieberman APRN C.N.P., D.N.P. LAB BLOOD AD D-ON Edited Result - Final [facility] [address] [place] [address], [facility] [address] [place] [address] * Vancomycin, Random (09/04/2024 12:29 AM CDT) Pathologist [facility] Vancomycin, Random, S 9.7 mcg/mL 09/04/2024 2:02 AM CDT DTL Comment: ----REFERENCE VALUE---- Peak: 20.0 - 45.0 Trough: 10.0 - 20.0 Blood (Blood, Venous) 09/04/2024 12:29 AM CDT 09/04/2024 1:17 AM CDT us Eze Shah M.D. LAB BLOOD NON ADD-ON Final Result Performing Organization Address City/[facility]/ZIP Co de Phone Number [facility] [address] [place] [address], [facility] DTL [facility] [address] [place] [address] * (ABNORMAL) Glucose, POCT (09/03/2024 11:40 PM CDT) Glucose, POCT, B 253(H) 70 - 140 mg/dL 09/03/2024 11:42 PM CDT PCLX Site Capillary 09/03/2024 11:42 PM CDT PCLX Last Intake > 4 hours 09/03/2024 11:42 PM CDT PCLX Blood 09/03/2024 11:4 0 PM CDT 09/03/2024 11:42 PM CDT us Unknown Provider LAB POCT ORDERABLES-MANUAL Eliana l Result Performing Organization Address City/[facility] Co de Phone Number POC [facility] [address] [place] [address], [facility] PCLX [facility] [address] [place] [address] * (ABNORMAL) Glucose, POCT (09/03/2024 8:42 PM CDT) Glucose, POCT, B 329(H) 70 - 140 mg/dL 09/03/2024 8:47 PM CDT PCLX Site Capillary 09/03/2024 8:47 PM CDT PCLX Last Intake > 4 hours 09/03/2024 8:47 PM CDT PCLX Blood 09/03/2024 8:42 PM CDT 09/03/2024 8:47 PM CDT us Unknown Provider LAB POCT ORDERABLES-MANUAL Eliana l Result Performing Organization Address [facility] Co de Phone Number POC [facility] [address] [place] [address], [facility] PCLX [facility] POC [address] [place] [address] * (ABNORMAL) Glucose, POCT (09/03/2024 4:48 PM CDT) Glucose, POCT, B 319(H) 70 - 140 mg/dL 09/03/2024 4:50 PM CDT PCLX Site Capillary 09/03/2024 4:50 PM CDT PCLX Last Intake 3-4 hours 09/03/2024 4:50 PM CDT PCLX Blood 09/03/2024 4:48 PM CDT 09/03/2024 4:50 PM CDT us Unknown Provider LAB POCT ORDERABLES-MANUAL Eliana l Result Performing Organization Address [facility] de Phone Number [facility] [address] [place] [address], [facility] PCLX [facility] POC [address] [place] [address] * Microscopic Manual (09/03/2024 3:49 PM CDT) Microscopy Normal 09/03/2024 5:44 PM CDT DTL RBC <3 <3 /hpf 09/03/2024 5:44 PM CDT DTL WBC None Seen /hpf 09/03/2024 5:44 PM CDT DTL Comment: ----REFERENCE VALUE---- <4 ??(Males) <11 (Females) Casts, Hyaline Occas /lpf 09/03/2024 5:44 PM CDT DTL Urine 09/03/2024 3:49 PM CDT 09/03/2024 4:44 PM CDT us Emory Glasgow P.A.-C. LAB URINE ORDERABLES F inal Result Performing Organization Address [facility]/ZIP Co de Phone Number [facility] [address] [place] [address], [facility] [address] [place] [address] * (ABNORMAL) Dipstick, Urine (09/03/2024 3:49 PM CDT) [facility] Hemoglobin, QL, U Moderate(A) Negative 09/03/2024 4:44 [...] ORDERABLES F inal Result Performing Organization Address City/[facility]/ZIP Co de Phone Number [facility] [address] [place], [place] [id number] [place] [address] [address] [place] [address] * pH, Urine (09/03/2024 3:49 PM CDT) [facility] pH, U 5.1 4.5 - 8.0 09/03/2024 5:1 5 PM CDT DTL Urine 09/03/2024 3:49 PM CDT 09/03/2024 4:31 PM CDT Emory LongoriaC. LAB URINE ORDERABLES F inal Result Performing Organization Address City/[facility]/ZIP Co de Phone Number [facility] [address] [place], [place] [id number] [place] [address] [address] [place] [address] * Osmolality, Urine (09/03/2024 3:49 PM CDT) [facility] Osmolality, U 409 150 - 1150 mOsm/kg 09/03/2024 5:15 PM CDT DTL Urine 09/03/2024 3:49 PM CDT 09/03/2024 4:31 PM CDT Emory Glasgow P.A.-C. LAB URINE ORDERABLES F inal Result Performing Organization Address City/[facility]/ZIP Co de Phone Number [facility] [address] [place] [address], [facility] DTL [facility] [address] [place] [address] * (ABNORMAL) Urinalysis, with Microscopic: Urine, Midstream (09/03/2024 3:49 PM CDT) Source Urine, Urine, Midstream 09/03/2024 4:31 PM [...] P.A.-C. LAB URINE ORDERABLES F inal Result [facility] [address] [place] [address], [place] DTL [facility] [address] [place] [address] * (ABNORMAL) Glucose, POCT (09/03/2024 11:32 AM CDT) Glucose, POCT, B 275(H) 70 - 140 mg/dL 09/03/2024 11:34 AM CDT PCLX Site Capillary 09/03/2024 11:34 AM CDT PCLX Last Intake 2-3 hours 09/03/2024 11:34 AM CDT PCLX Blood 09/03/2024 11:3 2 AM CDT 09/03/2024 11:34 AM CDT us Unknown Provider LAB POCT ORDERABLES-MANUAL Eliana l Result Performing Organization Address City/[facility]/ZIP Co de Phone Number [facility] [address] [place] [address], [facility] PCLX [facility] POC [address] [place] [address] * (ABNORMAL) Glucose, POCT (09/03/2024 7:45 AM CDT) Glucose, POCT, B 179(H) 70 - 140 mg/dL 09/03/2024 7:47 AM CDT PCLX Site Capillary 09/03/2024 7:47 AM CDT PCLX Last Intake > 4 hours 09/03/2024 7:47 AM CDT PCLX Blood 09/03/2024 7:45 AM CDT 09/03/2024 7:47 AM CDT us Unknown Provider LAB POCT ORDERABLES-MANUAL Eliana l Result [facility] [address] [place] [address], [facility] PCLX [facility] POC [address] [place] [address] * ECG 12 Lead (09/03/2024 6:51 AM CDT) Ventricular Rate ECG/Min 72 BPM MUSE [place] Interval 140 ms MUSE QRSD Interval 76 ms MUSE QT Interval 396 ms MUSE QTC Interval 433 ms MUSE P [place] 40 degrees MUSE R [place] 69 degrees MUSE T Wave [place] 100 degrees MUSE 09/03/2024 6:51 AM CDT [...] change was found Reviewed by MARIELA Araujo Emory Glasgow P.A.-C. ECG ORDERABLES Final Result Performing Organization Address City/[facility]/ZIP Co de Phone Number MUSE NA * (ABNORMAL) Lactate (09/03/2024 5:27 AM CDT) Lactate, P 2.3(H) 0.5 - 2.2 mmol/L 09/03/2024 6:16 AM CDT DTL Blood (Blood, Venous) 09/03/2024 5:27 AM CDT 09/03/2024 6:03 AM CDT Yosef Lieberman APRN C.N.P., D.N.P. LAB BLOOD NO N ADD-ON Final Result [facility] [address] [place] [address], [place] DTL [facility] [address] [place] [address] * (ABNORMAL) Prothrombin Time (PT) (09/03/2024 5:27 AM CDT) Prothrombin Time, P 35.1(H) 9.4 - 12.5 sec 09/03/2024 6:12 AM CDT DTL INR 3.2 0.9 - 1.1 09/03/2024 6:12 AM CDT DTL Comment: ----ADDITIONAL INFORMATION---- Standard intensity warfarin therapeutic range: 2.0 to 3.0 ?? High intensity warfarin therapeutic range: 2.5 to 3.5 Blood (Blood, Venous) 09/03/2024 5:27 AM CDT 09/03/2024 5:54 AM CDT Yosef Lieberman APRN, C.N.P., D.N.P. LAB BLOOD AD D-ON Final Result [facility] [address] [place] [address], [facility] [address] [place] [address] * (ABNORMAL) Basic Metabolic Panel (09/03/2024 5:27 AM CDT) [facility] Potassium, S 5.0 3.6 - 5.2 mmol/L 09/03/2024 6:27 AM CDT DTL Sodium, S 135 135 - 145 mmol/L 09/03/2024 6:27 AM CDT DTL Chloride, S 96(L) 98 - 107 mmol/L 09/03/2024 6:27 AM CDT DTL Bicarbonate, S 27 22 - 29 mmol/L 09/03/2024 6:27 AM CDT DTL Anion Gap 12 7 - 15 09/03/2024 6:27 AM CDT DTL BUN (Blood Urea Nitrogen), S 81(H) 8 - 24 mg/dL 09/03/2024 6:27 AM CDT DTL Creatinine 3.35(H) 0.74 - 1.35 mg/dL 09/03/2024 6:27 AM CDT DTL Estimated GFR (eGFR) 19(L) >=60 mL/min/BSA 09/03/2024 6:27 AM CDT DTL Comment: Estimated GFR calculated using the 2020 CKD_EPI creatinine equation. Calcium, Total, S 8.4(L) 8.8 - 10.2 mg/dL 09/03/2024 6:27 AM CDT DTL Glucose, S 234(H) 70 - 140 mg/dL 09/03/2024 6:27 AM CDT DTL Blood (Blood, Venous) 09/03/2024 5:27 AM CDT 09/03/2024 6:05 AM CDT Yosef Lieberman APRN, C.N.P., D.N.P. LAB BLOOD AD D-ON Final Result [facility] [address] [place] [address], [facility] DTL [facility] [address] [place] [address] * (ABNORMAL) CBC without Differential (09/03/2024 5:27 AM CDT) Pathologist [facility] Hemoglobin 12.4(L) 13.2 - 16.6 g/dL 09/03/2024 6:14 AM CDT DTL Hematocrit 38.8 38.3 - 48.6 % 09/03/2024 6:14 AM CDT DTL Erythrocytes 4.32(L) 4.35 - 5.65 x10(12)/L 09/03/2024 6:14 AM CDT DTL MCV 89.8 78.2 - 97.9 fL 09/03/2024 6:14 AM CDT DTL RBC Distrib Width 16.0(H) 11.8 - 14.5 % 09/03/2024 6:14 AM CDT DTL Platelet Count 85(L) 135 - 317 x10(9)/L 09/03/2024 7:06 AM CDT DTL Leukocytes 24.5(H) 3.4 - 9.6 x10(9)/L 09/03/2024 7:06 AM CDT DTL Blood (Blood, Venous) 09/03/2024 5:27 AM CDT 09/03/2024 5:55 AM CDT Yosef Lieberman APRN, C.N.P., D.N.P. LAB BLOOD AD D-ON Final Result [facility] [address] [place], [place] [address] [place] [address] [address] [place] [address] * (ABNORMAL) Cystatin C with Estimated GFR (09/03/2024 5:23 AM CDT) eGFR by Cystatin C 15(L) >60 mL/min/BSA [...] 5:23 AM CDT 09/04/2024 8:36 AM CDT us Eze Shah M.D. LAB BLOOD ADD-ON Final Res ult Performing Organization Address City/[facility]/ZIP Co de Phone Number [facility] [address] [place], [place] [address] [address] [place] [address] * (ABNORMAL) Glucose, POCT (09/03/2024 4:20 AM CDT) Glucose, POCT, B 261(H) 70 - 140 mg/dL 09/03/2024 4:21 AM CDT PCLX Site Capillary 09/03/2024 4:21 AM CDT PCLX Blood 09/03/2024 4:20 AM CDT 09/03/2024 4:22 AM CDT us Unknown Provider LAB POCT ORDERABLES-MANUAL Eliana l Result Performing Organization Address City/[facility]/ZIP Co de Phone Number [facility]OC [facility] [address] [place] [address], [facility] PCLX [facility] POC [address] [place] [address] * (ABNORMAL) Troponin T, 2 Hour with 6 Hour Reflex, 5th Gen (09/03/2024 12:27 AM CDT) Troponin T, 2 hr, 5th gen 157(H) [...] TR OPONIN Final Result Performing Organization Address [facility] Co de Phone Number [facility] [address] [place] [address], [facility] STMA [facility] [address] [place] [address] * Glucose, POCT (09/03/2024 12:16 AM CDT) Glucose, POCT, B 126 70 - 140 mg/dL 09/03/2024 12:17 AM CDT PCLX Site Capillary 09/03/2024 12:17 AM CDT PCLX Blood 09/03/2024 12:1 6 AM CDT 09/03/2024 12:17 AM CDT us Unknown Provider LAB POCT ORDERABLES-MANUAL Eliana l Result Performing Organization Address City/[facility]/ZIP Co de Phone Number [facility] [address] [place] [address], [facility] PCLX [facility] POC [address] [place] [address] * Staph aureus / MRSA, Nasal, PCR (09/03/2024 12:09 AM CDT) Staphylococcus aureus, PCR Negative Negative 09/03/2024 3:09 AM CDT DTL MRSA, PCR Negative Negative 09/03/2024 3:09 AM CDT DTL Swab (Nares) 09/03/2024 12:0 9 AM CDT 09/03/2024 1:45 AM CDT Yosef Lieberman APRN, C.N.P., D.N.P. LAB MICROBIOLOGY - GENERAL ORDERABLES Final Result [facility] [address] [place] [address], [facility] [address] [place] [address] * Glucose, POCT (09/02/2024 11:23 PM CDT) Pathologist [facility] Glucose, POCT, B 86 70 - 140 mg/dL 09/02/2024 11:25 PM CDT PCLX Site Capillary 09/02/2024 11:25 PM CDT PCLX Blood 09/02/2024 11:2 3 PM CDT 09/02/2024 11:25 PM CDT Unknown Provider LAB POCT ORDERABLES-MANUAL Eliana l Result [facility] [address] [place] [address], [facility] PCLX [facility] POC [address] [place] [address] * (ABNORMAL) Lactate (09/02/2024 11:07 PM CDT) Pathologist [facility] Lactate, P 2.8(H) 0.5 - 2.2 mmol/L 09/03/2024 12:18 AM CDT DTL Blood (Blood, Venous) 09/02/2024 11:07 PM CDT 09/02/2024 11:43 PM CDT Yosef Lieberman APRN C.N.P., D.N.P. LAB BLOOD NO N ADD-ON Final Result [facility] [address] [place] [address], [facility] DTL [facility] [address] [place] [address] * (ABNORMAL) Glucose, POCT (09/02/2024 11:01 PM CDT) Glucose, POCT, B 49(L) 70 - 140 mg/dL 09/02/2024 11:02 PM CDT PCLX Site Capillary 09/02/2024 11:02 PM CDT PCLX Last Intake NPO 09/02/2024 11:02 PM CDT PCLX Blood 09/02/2024 11:0 1 PM CDT 09/02/2024 11:02 PM CDT Unknown Provider LAB POCT ORDERABLES-MANUAL Eliana l Result Performing Organization Address [facility] Co de Phone Number POC [facility] [address] [place] [address], [facility] PCLX [facility] POC [address] [place] [address] * (ABNORMAL) Troponin T, Baseline with 2 Hour/6 Hour Reflex Biomarker Panel (09/02/2024 9:58 PM CDT) Troponin T, Baseline, 5th gen 171(H) <=15 ng/L 09/02/2024 10:57 PM CDT STMA Comment:Consider acute myoca rdial injury Blood (Blood, Venous) 09/02/2024 9:58 PM CDT 09/02/2024 10:25 PM CDT Yosef Lieberman APRN, C.N.P., D.N.P. LAB BLOOD TR OPONIN Final Result [facility] [address] [place] [address] * (ABNORMAL) Prothrombin Time (PT) (09/02/2024 9:58 PM CDT) [facility] Prothrombin Time, P 31.6(H) 9.4 - 12.5 sec 09/02/2024 10:22 PM CDT [facility] INR 2.8 0.9 - 1.1 09/02/2024 10:22 PM CDT [facility] Comment: ----ADDITIONAL INFORMATION---- Standard intensity warfarin therapeutic range: 2.0 to 3.0 ?? High intensity warfarin therapeutic range: 2.5 to 3.5 Blood (Blood, Venous) 09/02/2024 9:58 PM CDT 09/02/2024 10:02 PM CDT us Yosef Lieberman APRN C.N.P., D.N.P. LAB BLOOD AD D-ON Final Result [facility] [address] [place] [address] * (ABNORMAL) Procalcitonin (09/02/2024 9:58 PM CDT) [facility] Procalcitonin, S 3.82(H) 0.00 - 0.24 ng/mL 09/02/2024 11:00 PM CDT DTL Comment: Procalcitonin >=0.25 ng/mL may indicate bacteremia or bacterial pneumonia; however, it is a non-specific biomarker. False positives can be seen in patients with a variety of illnesses, including but not limited to severe trauma, shock, recent surgery, nunn, renal insufficiency, severe liver disease, COVID-19, and certain malignancies. Blood (Blood, Venous) 09/02/2024 9:58 PM CDT 09/02/2024 10:28 PM CDT Cata Mao APRN.N.P., D.N.P. LAB BLOOD AD D-ON Final Result Performing Organization Address City/[facility]/ZIP Co de Phone Number [facility] [address] [place] [address], [facility] DTL [facility] [address] [place] [address] * Phosphorus Inorganic (09/02/2024 9:58 PM CDT) [facility] Phosphorus (Inorganic), P 3.4 2.5 - 4.5 mg/dL 09/02/2024 10:20 PM CDT STMA Blood (Blood, Venous) 09/02/2024 9:58 PM CDT 09/02/2024 10:02 PM CDT [facility] J[facility] C.N.P., D.N.P. LAB BLOOD AD D-ON Final Result Performing Organization Address City/[facility]/ZIP Co de Phone Number [facility] [address] [place], [place] [address] [place] [address] [address] [place] [address] * (ABNORMAL) Magnesium (09/02/2024 9:58 PM CDT) [facility] Magnesium, P 2.6(H) 1.7 - 2.3 mg/dL 09/02/2024 10:20 PM CDT STMA Blood (Blood, Venous) 09/02/2024 9:58 PM CDT 09/02/2024 10:02 PM CDT [facility] JAY C.N.P., D.N.P. LAB BLOOD AD D-ON Final Result Performing Organization Address City/[facility]/ZIP Co de Phone Number [facility] [address] [place], [place] [phone] [place] [address] [address] [place] [address] * Lipase (09/02/2024 9:58 PM CDT) Lipase, S 19 13 - 60 U/L 09/02/2024 11:00 PM CDT DTL Blood (Blood, Venous) 09/02/2024 9:58 PM CDT 09/02/2024 10:28 PM CDT Cata Cardenas APRN.N.P., D.N.P. LAB BLOOD AD D-ON Final Result Performing Organization Address City/[facility]/ZIP Co de Phone Number [facility] [address] [place] [address], [facility] [address] [place] [address] * (ABNORMAL) Lactate (09/02/2024 9:58 PM CDT) Lactate, P 2.3(H) 0.5 - 2.2 mmol/L 09/02/2024 10:17 PM CDT [facility] Blood (Blood, Venous) 09/02/2024 9:58 PM CDT 09/02/2024 10:02 PM CDT Yosef Lieberman APRN C.N.P., D.N.P. LAB BLOOD NO N ADD-ON Final Result Performing Organization Address City/[facility] Co de Phone Number [facility] [address] [place] [address], [facility] [address] [place] [address] * (ABNORMAL) Hepatic Function Panel (09/02/2024 9:58 [...] CDT 09/02/2024 10:28 PM CDT Yosef Lieberman APRN, C.N.P., D.N.P. LAB BLOOD AD D-ON Final Result [facility] [address] [place] [address], [facility] [address] [place] [address] * (ABNORMAL) CBC without Differential (09/02/2024 9:58 PM CDT) Hemoglobin 13.4 13.2 - 16.6 g/dL 09/02/2024 10:05 PM CDT ST[facility] Hematocrit 40.2 38.3 - 48.6 % 09/02/2024 10:05 PM CDT [facility] Erythrocytes 4.56 4.35 - 5.65 x10(12)/L 09/02/2024 10:05 PM CDT [facility] MCV 88.2 78.2 - 97.9 fL 09/02/2024 10:05 PM CDT [facility] RBC Distrib Width 15.9(H) 11.8 - 14.5 % 09/02/2024 10:05 PM CDT [facility] Platelet Count 110(L) 135 - 317 x10(9)/L 09/02/2024 10:05 PM CDT [facility] Leukocytes 25.5(H) 3.4 - 9.6 x10(9)/L 09/02/2024 10:05 PM CDT [facility] Blood (Blood, Venous) 09/02/2024 9:58 PM CDT 09/02/2024 10:02 PM CDT Radha Cardenas APRNNGrant., PetraN.P. LAB BLOOD AD D-ON Final Result [facility] [address] [place] [address], [facility] STMA [facility] [address] [place] [address] * (ABNORMAL) Basic Metabolic Panel (09/02/2024 9:58 PM CDT) Pathologist [facility] Potassium, P 4.7 3.6 - 5.2 mmol/L 09/02/2024 10:20 PM CDT [facility] Sodium, P 140 135 - 145 mmol/L 09/02/2024 10:20 PM CDT [facility] Chloride, P 98 98 - 107 mmol/L 09/02/2024 10:20 PM CDT [facility] Bicarbonate, P 30(H) 22 - 29 mmol/L 09/02/2024 10:20 PM CDT [facility] Anion Gap, P 12 7 - 15 09/02/2024 10:20 PM CDT [facility] BUN (Blood Urea Nitrogen), P 81(H) 8 - 24 mg/dL 09/02/2024 10:20 PM CDT [facility] Creatinine 3.34(H) 0.74 - 1.35 mg/dL 09/02/2024 10:20 PM CDT [facility] Estimated GFR (eGFR) 19(L) >=60 mL/min/BSA 09/02/2024 10:20 PM CDT [facility] Comment: Estimated GFR calculated using the 2020 CKD_EPI creatinine equation. Calcium, Total, P 8.9 8.8 - 10.2 mg/dL 09/02/2024 10:20 PM CDT [facility] Glucose, P 63(L) 70 - 140 mg/dL 09/02/2024 10:20 PM CDT [facility] Blood (Blood, Venous) 09/02/2024 9:58 PM CDT 09/02/2024 10:02 PM CDT Cata Cardenas APRN.N.P., D.N.P. LAB BLOOD AD D-ON Final Result [facility] [address] [place] [address], [facility] STMA [facility] [address] [place] [address] * (ABNORMAL) CRP (C-Reactive Protein) (09/02/2024 9:52 PM CDT) C-Reactive Protein (CRP), S 81.2(H) <5.0 mg/L 09/02/2024 11:34 PM CDT DTL Blood 09/02/2024 9:52 PM CDT 09/02/2024 11:09 PM CDT Cata Cardenas APRN.N.P., D.N.P. LAB BLOOD AD D-ON Final Result [facility] [address] [place] [address], [facility] [address] [place] [address] * (ABNORMAL) CK (Creatine Kinase) (09/02/2024 9:52 PM CDT) Creatine Kinase (CK), S 610(H) 39 - 308 U/L 09/02/2024 11:34 PM CDT DTL Blood (Blood, Venous) 09/02/2024 9:52 PM CDT 09/02/2024 11:09 PM CDT Yosef Lieberman APRN C.N.P., D.N.P. 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 1 To 4 Chronic Kidney Disease Or Unspecified Chronic Kidney Disease Coronary Artery Disease Without Angina Pectoris Diabetes Mellitus Type 2 (HCC) Hemiplegia Dominant Side Right (HCC) Hyperlipidemia On Treatment Atrial Fibrillation Paroxysmal (HCC) Benign Prostatic Hyperplasia Without Obstruction Hypertension Essential Primary Stroke Cerebrovascular Accident Personal History Stenosis Aortic Valve Acquired 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 Prosthesis Aortic Valve 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 Cardiac Surgery Status Post Failure Renal Acute (Acute Kidney Injury) (HCC) Penitentiary (Current) Anticoagulant Treatment Bypass Coronary Artery Graft Status Post Anemia Thrombocytopenia (HCC) Restless Leg Syndrome documented in this encounter Admitting Diagnoses Diagnosis Severe Sepsis With Septic Shock (HCC) Sepsis (HCC) documented in this encounter Administered Medications Active Administered Medications - up to 3 most recent administrations Medication Order MAR Action Action Date Dose Rate Site acetaminophen tablet 1,000 mg (TylenoL) 1,000 mg, oral, 4 times daily PRN, mild pain or score 1-3 of 10, Starting on Sun09/02/24 at 2141 Given 09/06/2024 6:28 AM CDT 1,000 mg Given 09/06/2024 12:17 AM CDT 1,000 mg Given 09/05/2024 11:18 AM CDT 1,000 mg aspirin chewable tablet 81 mg 81 mg, oral, Daily, First dose on Sun09/03/24 at 0900 Given 09/06/2024 9:21 AM CDT 81 mg Given 09/05/2024 8:58 AM CDT 81 mg Given 09/04/2024 8:26 AM CDT 81 mg atorvastatin tablet 80 mg (Lipitor) 80 mg, oral, Daily at bedtime, First dose on Sun09/03/24 at 2100 Given 09/05/2024 9:15 PM CDT 80 mg Given 09/04/2024 9:09 PM CDT 80 mg Given 09/03/2024 8:38 PM CDT 80 mg bisacodyL suppository 10 mg (Dulcolax) 10 mg, rectal, Daily PRN, constipation, Starting on Sun09/03/24 at 0638 dextrose 40% gel 15 g of dextrose (Glutose) 15 g of dextrose, oral, As needed, low blood sugar, For glucose 54-70 mg/dL, Starting on Sun09/02/24 at 2302, If patient is conscious and able to swallow safely and has a fuctioning gastrointestinal tract or on Acarbose (Precose??) or Miglitol (Glyset??). May use tablets or gel. For hypoglycemia treatment. 1 g dextrose 40% gel = 0.4 g of dextrose (Example: 37.5 g dextrose 40% gel = 15 g of dextrose). dextrose 40% gel 30 g of dextrose (Glutose) 30 g of dextrose, oral, As needed, low blood sugar, For glucose less than 54 mg/dL, Starting on Sun09/02/24 at 2302, If no intravenous access is available and the patient is conscious and able to swallow safely and has a fuctioning gastrointestinal tract or on Acarbose (Precose??) or Miglitol (Glyset??). May use tablets or gel. For hypoglycemia treatment. 1 g dextrose 40% gel = 0.4 g of dextrose (Example: 37.5 g dextrose 40% gel = 15 g of dextrose). dextrose 50 % injection 12.5 g 12.5 g, intravenous, As needed, low blood sugar, For glucose 71-90 mg/dL, Starting on Sun09/02/24 at 2302, If the patient has intravenous access available, is not able to take oral feeding safely, does not have a functioning gastrointestinal tract or feeding tube, or is NPO, administer D50W intravenously for hypoglycemia prevention. dextrose 50 % injection 12.5 g 12.5 g, intravenous, As needed, low blood sugar, For glucose 54-70 mg/dL, Starting on Sun09/02/24 at 2302, If the patient has intravenous access available, is not able to take oral feeding safely, does not have a functioning gastrointestinal tract or feeding tube, or is NPO, administer D50W intravenously for hypoglycemia treatment. dextrose 50 % injection 25 g 25 g, intravenous, As needed, low blood sugar, For glucose less than 54 mg/dL, Starting on Sun09/02/24 at 2302, If intravenous access is available, administer D50W intravenously for hypoglycemia treatment. hllppaepcrKNQFJ-mspf-akmw-mag hydrox-simeth suspension 15 mL 15 mL, swish & spit, 4 times daily after meals and bedtime, First dose on 09/06/24 at 1030 Given 09/06/2024 10:40 AM CDT 15 mL finasteride tablet 5 mg (Proscar) 5 mg, oral, Daily, First dose on [place]issa 09/04/24 at 0900, See tube feeding guidelines for tube feeding administration instructions. Given 09/06/2024 9:20 AM CDT 5 mg Given 09/05/2024 8:58 AM CDT 5 mg Given 09/04/2024 8:26 AM CDT 5 mg glucagon injection 1 mg (GlucaGen) 1 mg, subcutaneous, As needed, low blood sugar, For glucose 71-90 mg/dL, Starting on Sun09/02/24 at 2302, If patient is not able to take oral feeding safely, does not have a functioning gastrointestinal tract or feeding tube, or is NPO. Following treatment with Glucagon, a source of glucose should be started to maintain blood glucose level (e.g., patient should eat oral carbohydrates if allowed or prescriber should be contacted to consider starting fluids containing dextrose) Glucagon may only be given once per hypoglycemia prevention episode. glucose chewable tablet 16 g 16 g, oral, As needed, low blood sugar, For glucose 54-70 mg/dL, Starting on Sun09/02/24 at 2302, If patient is conscious and able to swallow safely and has a functioning gastrointestinal tract or on Acarbose (Precose??) or Miglitol (Glyset??). Administer 4 tablets to total 16 grams. May use tablets or gel. For hypoglycemia treatment. glucose chewable tablet 32 g 32 g, oral, As needed, low blood sugar, For glucose less than 54 mg/dL, Starting on Sun09/02/24 at 2302, If no intravenous access is available and the patient is conscious and able to swallow safely and has a functioning gastrointestinal tract or on Acarbose (Precose??) or Miglitol (Glyset??). Administer 8 tablets to total 32 grams. May use tablets or gel. For hypoglycemia treatment. heparin (porcine) 1,000 unit/mL injection 2,400 Units 2,400 Units (rounded from 2,367 Units = 30 Units/kg ? 78.9 kg Dosing weight), intravenous, As needed, antiXa 0.1-0.19, Starting on Sun09/05/24 at 0939, Intensity type: Moderate, Anti-Xa < 0.1: Loading Dose (Units/kg): 60, Anti-Xa 0.1-0.19: Loading Dose (Units/kg): 30, Anti-Xa > 0.19: Loading Dose (Units/kg): 0 heparin (porcine) 1,000 unit/mL injection 4,700 Units 4,700 Units (rounded from 4,734 Units = 60 Units/kg ? 78.9 kg Dosing weight), intravenous, As needed, antiXa less than 0.1, Starting on Sun09/05/24 at 0939, Intensity type: Moderate, Anti-Xa < 0.1: Loading Dose (Units/kg): 60, Anti-Xa 0.1-0.19: Loading Dose (Units/kg): 30, Anti-Xa > 0.19: Loading Dose (Units/kg): 0 heparin (porcine) 100 Units/mL in NaCl 0.45% 250 mL infusion 0-30 Units/kg/hr ? 78.9 kg Dosing weight (0-23.67 mL/hr), intravenous, Continuous, Starting on Sun09/05/24 at 1000, 25,000 Units in 250 mL, Intensity type: Moderate, Starting Dose (units/kg/hr): 12, Anti-Xa < 0.1: Adjust Dose (Units/kg/hr) by: 4, Anti-Xa < 0.1: Loading Dose (Units/kg): 60, Anti-Xa < 0.1: Repeat anti-Xa: 6 hours, Anti-Xa 0.1-0.19: Adjust Dose (Units/kg/hr) by: 2, Anti-Xa 0.1-0.19: Loading Dose (Units/kg): 30, Anti-Xa 0.1-0.19: Repeat anti-Xa: 6 hours, Anti-Xa 0.2-0.5: Adjust Dose (Units/kg/hr) by: 0, Anti-Xa 0.2-0.5: Repeat anti-Xa: 6 hours. If two consecutive therapeutic result, re-check next AM., Anti-Xa > 0.19: Loading Dose (Units/kg): 0, Anti-Xa 0.51-0.6: Adjust Dose (Units/kg/hr) by: -1, Anti-Xa 0.51-0.6: Repeat anti-Xa: 6 hours, Anti-Xa 0.61-0.9: Hold Infusion: Stop infusion for 1 hour, Anti-Xa 0.61-0.9: Adjust Dose (Units/kg/hr) by: -2, Anti-Xa 0.61-0.9: Repeat anti-Xa: 6 hours after Heparin resumed, Anti-Xa 0.91-1.5: Hold Infusion: Stop infusion for 2 hours, Anti-Xa 0.91-1.5: Adjust Dose (Units/kg/hr) by: -4, Anti-Xa 0.91-1.5: Repeat anti-Xa: 6 hours after Heparin resumed, Anti-Xa > 1.5: Hold Infusion: Stop infusion until anti-Xa < 1.2, Anti-Xa > 1.5: Adjust Dose (Units/kg/hr) by: -4, Anti-Xa > 1.5: Repeat anti-Xa: every 2 hours until anti-Xa less than 1.2 Rate/Dose Verify 09/06/2024 2:00 PM CDT 12 Units/kg/hr 9.47 mL/hr New Bag 09/06/2024 1:59 PM CDT 12 Units/kg/hr 9.47 mL/h r Rate/Dose Change 09/06/2024 10:06 AM CDT 12 Units/kg/hr 9. 47 mL/hr insulin aspart U-100 injection 0-13 Units (NovoLOG FlexPen) 0-13 Units, subcutaneous, 3 times daily before meals, First dose (after last modification) on Sun09/05/24 at 1100, Insulin Scale: Individualized Correction Scale, 140 - 179: 0, 180-219: 2, 220-259: 4, 260-299: 6, 300-339: 8, 340-379: 10, 380-399: 12, Greater than 399: Call service writing Insulin orders Given 09/05/2024 5:59 PM CDT 10 Units Right Upper Arm (Back) Given 09/05/2024 1:14 PM CDT 6 Units Le ft Upper Arm (Back) insulin NPH injection 30 Units 30 Units, subcutaneous, Every morning, First dose (after last modification) on 09/07/24 at 0900 insulin NPH injection 5 Units 5 Units, subcutaneous, Daily at bedtime, First dose (after last modification) on 09/06/24 at 1700 melatonin tablet 3 mg 3 mg, oral, Daily at bedtime, First dose on Sun09/05/24 at 2100 isnxcheycujs-bmkh-UC-Ca-minerals 400 mcg (folic acid) tablet 1 tablet 1 tablet, oral, Daily, First dose on Sun09/04/24 at 0900 Given 09/06/2024 9:21 AM CDT 1 tablet Given 09/05/2024 8:58 AM CDT 1 tablet Given 09/04/2024 8:26 AM CDT 1 tablet naloxone injection 0.2 mg (Narcan) 0.2 mg, intravenous, As needed, respiratory depression, Starting on Sun09/03/24 at 0645, For RASS Score -4 or less, respiratory rate of less than 8 breaths/min. Notify provider/service and rapid response team (if available at institution). oxyCODONE IR tablet 5 mg (Roxicodone) 5 mg, oral, Every 6 hours PRN, moderate pain or score 4-6 of 10, Starting on Sun09/03/24 at 0644 Given 09/06/2024 10:40 AM CDT 5 mg Given 09/06/2024 12:17 AM CDT 5 mg Given 09/05/2024 6:25 PM CDT [address] tablet 40 mg (Protonix) 40 mg, oral, Daily before morning meal, First dose on Sun09/04/24 at 0700, Swallow whole. Do NOT crush, chew, or split tablet. Given 09/06/2024 6:18 AM CDT 40 mg Given 09/05/2024 6:07 AM CDT 40 mg Given 09/04/2024 6:38 AM CDT 40 mg piperacillin-tazobactam in dextrose (iso osm) IVPB 2.25 g (Zosyn) 2.25 g, intravenous, at 100 mL/hr, Administer over 0.5 Hours, Every 6 hours, First dose on Sun09/02/24 at 2300, For 25 doses, Drug Monitoring Program: Pharmacist to adjust medication dosing based on indication and drug clearance factors., Indications: Skin and soft tissue infectionIndications:Skin and soft tissue infection New Bag 09/06/2024 10:40 AM CDT 2.25 g 100 mL/hr New Bag 09/06/2024 5:21 AM CDT 2.25 g 100 mL/hr New Bag 09/06/2024 12:18 AM CDT 2.25 g 100 mL/hr polyethylene glycol powder packet 17 g (Miralax) 17 g, oral, Daily PRN, constipation, Starting on Sun09/03/24 at 0638, Dissolve in 240 mLs (8 ounces) of water prior to giving. Avoid mixing with starch-based thickened liquids. predniSONE tablet 17.5 mg (Deltasone) 17.5 mg, oral, Daily, First dose on Sun09/03/24 at 0900 Given 09/06/2024 9:20 AM CDT 17.5 mg Given 09/05/2024 8:57 AM CDT 17.5 mg Given 09/04/2024 8:26 AM CDT 17.5 mg rOPINIRole tablet 0.5 mg (Requip) 0.5 mg, oral, 3 times daily, First dose (after last modification) on Sun09/03/24 at 0600 Given 09/06/2024 12:16 PM CDT 0.5 mg Given 09/06/2024 5:21 AM CDT 0.5 mg Given 09/05/2024 9:15 PM CDT 0.5 mg sennosides-docusate sodium 8.6-50 mg per tablet 1 tablet (Senokot-S) 1 tablet, oral, 2 times daily, First dose on Sun09/03/24 at 0900 Given 09/04/2024 8:26 AM CDT 1 tablet Given 09/03/2024 9:06 AM CDT 1 tablet tamsulosin 24 hr capsule 0.4 mg (Flomax) 0.4 mg, oral, Daily at bedtime, First dose on Sun09/03/24 at 2100, Swallow whole. Do NOT crush, chew or open capsule. Given 09/05/2024 9:15 PM CDT 0.4 mg Given 09/04/2024 9:09 PM CDT 0.4 mg Given 09/03/2024 8:38 PM CDT 0.4 mg torsemide tablet 60 mg (Demadex) 60 mg, oral, Daily, First dose (after last modification) on Sun09/06/24 at 0915 Given 09/06/2024 9:20 AM CDT 60 mg warfarin tablet 3 mg (Jantoven) 3 mg, oral, Once, On Sun09/06/24 at 1700, For 1 dose, HAZARDOUS - Handle with care. Swallow whole. Do NOT chew or split tablet. May crush using the [employer] system. Inactive Administered Medications - up to 3 most recent administrations Medication Order MAR Action Action Date Dose Rate Site fentaNYL injection 25 mcg (Sublimaze) 25 mcg, intravenous, Every 2 hour PRN, breakthrough pain, Starting on Sun09/03/24 at 0645 Given 09/03/2024 9:30 AM CDT 25 mcg heparin (porcine) 1,000 unit/mL injection 4,700 Units 4,700 Units (rounded from 4,734 Units = 60 Units/kg ? 78.9 kg Dosing weight), intravenous, Once, On Sun09/05/24 at 1000, For 1 dose, Initial Loading Dose Given 09/05/2024 10:23 AM CDT 4,700 Units insulin aspart U-100 injection 0-13 Units (NovoLOG FlexPen) 0-13 Units, subcutaneous, 4 times daily with meals and bedtime, First dose (after last modification) on Sun09/03/24 at 0800, Insulin Scale: Moderate Correction Scale, 140 - 179: 2 units, 180 - 219: 4 units, 220 - 259: 6 units, 260 - 299: 8 units, 300 - 339: 10 units, 340 - 379: 12 units, 380 - 399: 13 units, Greater than 399: Call service writing Insulin orders Given 09/03/2024 8:44 PM CDT 10 Units Left Upper Arm (Back) Given 09/03/2024 4:47 PM CDT 10 Units Le ft Upper Arm (Back) Given 09/03/2024 11:33 AM CDT 8 Units L eft Upper Arm (Back) insulin aspart U-100 injection 0-13 Units (NovoLOG FlexPen) 0-13 Units, subcutaneous, Every 4 hours scheduled, First dose (after last modification) on Sun09/04/24 at 0000, Insulin Scale: Moderate Correction Scale, 140 - 179: 2 units, 180 - 219: 4 units, 220 - 259: 6 units, 260 - 299: 8 units, 300 - 339: 10 units, 340 - 379: 12 units, 380 - 399: 13 units, Greater than 399: Call service writing Insulin orders Given 09/03/2024 11:41 PM CDT 6 Units Left Upper Arm (Back ) insulin aspart U-100 injection 0-13 Units (NovoLOG FlexPen) 0-13 Units, subcutaneous, 4 times daily with meals and bedtime, First dose (after last modification) on Sun09/04/24 at 1200, Insulin Scale: Moderate Correction Scale, 140 - 179: 2 units, 180 - 219: 4 units, 220 - 259: 6 units, 260 - 299: 8 units, 300 - 339: 10 units, 340 - 379: 12 units, 380 - 399: 13 units, Greater than 399: Call service writing Insulin orders Given 09/04/2024 9:18 PM CDT 10 Units Left Upper Arm (Back ) Given 09/04/2024 5:37 PM CDT 13 Units Le ft Upper Arm (Back) Given 09/04/2024 12:11 PM CDT 4 Units R ight Upper Arm (Back) insulin NPH injection 10 Units 10 Units, subcutaneous, Daily at bedtime, First dose (after last modification) on Sun09/04/24 at 2100 Given 09/04/2024 9:18 PM CDT 10 Units Left Upper Arm (Back) insulin NPH injection 10 Units 10 Units, subcutaneous, Once, On Sun09/06/24 at 1115, For 1 dose Given 09/06/2024 12:18 PM CDT 10 Units Right Upper Arm (Back) insulin NPH injection 15 Units 15 Units, subcutaneous, Every morning, First dose on Sun09/03/24 at 0900 Given 09/03/2024 9:31 AM CDT 15 Units Left Upper Arm (Back) insulin NPH injection 15 Units 15 Units, subcutaneous, Daily at bedtime, First dose (after last modification) on Sun09/05/24 at 2100 Given 09/05/2024 9:16 PM CDT 15 Units Right Upper Arm (Back) insulin NPH injection 20 Units 20 Units, subcutaneous, Daily at bedtime, First dose (after last modification) on Sun09/03/24 at 2100 Given 09/03/2024 8:43 PM CDT 20 Units Left Upper Arm (Back) insulin NPH injection 20 Units 20 Units, subcutaneous, Every morning, First dose (after last modification) on Sun09/06/24 at 0900 Given 09/06/2024 9:22 AM CDT 20 Units Right Upper Arm (Back) insulin NPH injection 30 Units 30 Units, subcutaneous, Every morning, First dose (after last modification) on Sun09/04/24 at 0900 Given 09/04/2024 8:27 AM CDT 30 Units Left Upper Arm (Back) insulin NPH injection 40 Units 40 Units, subcutaneous, Every morning, First dose (after last modification) on Sun09/05/24 at 0900 Given 09/05/2024 8:57 AM CDT 40 Units Left Upper Abdomen Lactated Ringer's bolus 500 mL 500 mL, intravenous, at 500 mL/hr, Administer over 1 Hours, Once, On Sun09/02/24 at 2245, For 1 dose New Bag 09/02/2024 10:45 PM CDT 500 mL 500 mL/hr Lactated Ringer's bolus 500 mL 500 mL, intravenous, at 500 mL/hr, Administer over 1 Hours, Once, On Sun09/03/24 at 0100, For 1 dose New Bag 09/03/2024 12:52 AM CDT 500 mL 500 mL/hr norepinephrine 16 mcg/mL in D5W 250 mL infusion 0-0.3 mcg/kg/min ? 79.9 kg (0-89.8875 mL/hr, rounded to 0-89.89 mL/hr), intravenous, Continuous, Starting on Sun09/02/24 at 2145, Protect from light and avoid extravasation, Patient Type: Standard, Initiate at: 0.05 mcg/kg/min, Titrate at: 0.05 mcg/kg/min. every 5 min., Wean at: 0.01 mcg/kg/min. every 5 min., Goal: Other, Goal: MAP 65 - 75 Rate/Dose Change 09/03/2024 6:40 AM CDT 0.01 mcg/kg/min 3 mL/hr Rate/Dose Change 09/03/2024 6:25 AM CDT 0.03 mcg/kg/min 8. 99 mL/hr Rate/Dose Change 09/03/2024 4:53 AM CDT 0.05 mcg/kg/min 15 mL/hr rOPINIRole tablet 0.5 mg (Requip) 0.5 mg, oral, 3 times daily, First dose on Sun09/02/24 at 2230 Given 09/02/2024 10:46 PM CDT 0.5 mg vancomycin in NaCl 0.9% IVPB 1,500 mg 1,500 mg (rounded from 1,466 mg = 20 mg/kg ? 73.3 kg Adjusted weight), intravenous, at 167 mL/hr, Administer over 90 Minutes, Once, On Sun09/02/24 at 2245, For 1 dose, Drug Monitoring Program: Pharmacist to adjust medication dosing based on indication and drug clearance factors., Indications: Skin and soft tissue infectionIndications:Skin and soft tissue infection New 09/03/2024 12:00 AM CDT 1,500 mg 167 mL/h r vancomycin in NaCl 0.9% IVPB 1,500 mg 1,500 mg, intravenous, at 167 mL/hr, Administer over 90 Minutes, Once, On Sun09/04/24 at 0230, For 1 dose, Drug Monitoring Program: Pharmacist to adjust medication dosing based on indication and drug clearance factors., Indications: Skin and soft tissue infectionIndications:Skin and soft tissue infection New 09/04/2024 2:43 AM CDT 1,500 mg 167 mL/hr warfarin tablet 1 mg (Jantoven) 1 mg, oral, Once, On Sun09/03/24 at 1700, For 1 dose, HAZARDOUS - Handle with care. Swallow whole. Do NOT chew or split tablet. May crush using the [employer] system. Given 09/03/2024 4:43 PM CDT 1 mg warfarin tablet 2 mg (Jantoven) 2 mg, oral, Once, On Sun09/04/24 at 1700, For 1 dose, HAZARDOUS - Handle with care. Swallow whole. Do NOT chew or split tablet. May crush using the [employer] system. Given 09/04/2024 5:11 PM CDT 2 mg warfarin tablet 2 mg (Jantoven) 2 mg, oral, Once, On Sun09/05/24 at 1700, For 1 dose, HAZARDOUS - Handle with care. Swallow whole. Do NOT chew or split tablet. May crush using the [employer] system. Given 09/05/2024 5:05 PM CDT 2 mg documented in this encounter Active and Recently Administered Medications Times are shown in CDT. Scheduled Medication Order 09/04/2024 09/05/2024 09/06/2024 aspirin chewable tablet 81 mg 81 mg, oral, Daily, First dose on Sun09/03/24 at 0900 0826 (Given - Provider: Alice Butt R.N.) 0858 (Given - Provider: Jana Dc R.N.) 0921 (Given - Provider: Jana Dc R.N.) atorvastatin tablet 80 mg (Lipitor) 80 mg, oral, Daily at bedtime, First dose on Sun09/03/24 at 2100 2109 (Given - Provider: Evonne Bustos R.N.) 2115 (Given - Provider: Evonne Bustos R.N.) 2100 (Due) kuezaqpnrfOAZCA-yxnk-sjf m-mag hydrox-simeth suspension 15 mL 15 mL, swish & spit, 4 times daily after meals and bedtime, First dose on Sun09/06/24 at 1030 1040 (Given - Provider: Jana Dc R.N.)1800 (Due)2100 (Due) finasteride tablet 5 mg (Proscar) 5 mg, oral, Daily, First dose on Sun09/04/24 at 0900, See tube feeding guidelines for tube feeding administration instructions. 0826 (Given - Provider: Alice Butt R.N.) 0858 (Given - Provider: Jana Dc R.N.) 0920 (Given - Provider: Jana Dc R.N.) heparin (porcine) 1,000 unit/mL injection 4,700 Units (COMPLETED) 4,700 Units (rounded from 4,734 Units = 60 Units/kg ? 78.9 kg Dosing weight), intravenous, Once, On Sun09/05/24 at 1000, For 1 dose, Initial Loading Dose 1023 (Given - Provider: Jana Dc R.N.) insulin aspart U-100 injection 0-13 Units (NovoLOG FlexPen) (CANCELED) 0-13 Units, subcutaneous, 4 times daily with meals and bedtime, First dose (after last modification) on Sun09/04/24 at 1200, Insulin Scale: Moderate Correction Scale, 140 - 179: 2 units, 180 - 219: 4 units, 220 - 259: 6 units, 260 - 299: 8 units, 300 - 339: 10 units, 340 - 379: 12 units, 380 - 399: 13 units, Greater than 399: Call service writing Insulin orders 1211 (Given - Provider: Alice Butt R.N. - Comment: [phone] (Given - Provider: Damon Cadena R.N. - Comment: B)2118 (Given - Provider: Evonne Bustos R.N. - Comment: BG [phone]) insulin aspart U-100 injection 0-13 Units (NovoLOG FlexPen) 0-13 Units, subcutaneous, 3 times daily before meals, First dose (after last modification) on Sun09/05/24 at 1100, Insulin Scale: Individualized Correction Scale, 140 - 179: 0, 180-219: 2, 220-259: 4, 260-299: 6, 300-339: 8, 340-379: 10, 380-399: 12, Greater than 399: Call service writing Insulin orders 1314 (Given - Provider: Jana Dc R.N. - Comment: Had to clarify with DCS based on their conversation with the patient in the morning)1759 (Given - Provider: Jana Dc R.N.) 0756 (Not Given - Provider: Jana Dc R.N. - Reason: Order parameters not met)1218 (Not Given - Provider: Moon Hackett, C.N.A. - Reason: Order parameters not met)1600 (Due) insulin NPH injection 10 Units (CANCELED) 10 Units, subcutaneous, Daily at bedtime, First dose (after last modification) on [place] 09/04/24 at 2100 2118 (Given - Provider: Evonne Bustos R.N.) insulin NPH injection 10 Units (COMPLETED) 10 Units, subcutaneous, Once, On Sun09/06/24 at 1115, For 1 dose 1218 (Given - Provider: Moon Hackett, C.N.A.) insulin NPH injection 15 Units (CANCELED) 15 Units, subcutaneous, Daily at bedtime, First dose (after last modification) on Sun09/05/24 at 2100 2116 (Given - Provider: Evonne Bustos R.N.) insulin NPH injection 20 Units (CANCELED) 20 Units, subcutaneous, Every morning, First dose (after last modification) on 09/06/24 at 0900 0922 (Given - Provider: Jana Dc R.N.) insulin NPH injection 30 Units (CANCELED) 30 Units, subcutaneous, Every morning, First dose (after last modification) on Sun09/04/24 at 0900 0827 (Given - Provider: Alice Butt R.N.) insulin NPH injection 30 Units 30 Units, subcutaneous, Every morning, First dose (after last modification) on Sun09/07/24 at 0900 insulin NPH injection 40 Units (CANCELED) 40 Units, subcutaneous, Every morning, First dose (after last modification) on Sun09/05/24 at 0900 0857 (Given - Provider: Jana Dc R.N.) insulin NPH injection 5 Units 5 Units, subcutaneous, Daily at bedtime, First dose (after last modification) on 09/06/24 at 1700 1700 (Due) melatonin tablet 3 mg 3 mg, oral, Daily at bedtime, First dose on Sun09/05/24 at 2100 2115 (Not Given - Provider: Evonne Bustos R.N. - Reason: Patient/family refused) 2100 (Due) wbaswauhrdmb-zffw-FE-Ca- minerals 400 mcg (folic acid) tablet 1 tablet 1 tablet, oral, Daily, First dose on Sun09/04/24 at 0900 0826 (Given - Provider: Alice Butt R.N.) 0858 (Given - Provider: Jana Dc R.N.) 0921 (Given - Provider: Jana Dc R.N.) pantoprazole DR tablet 40 mg (Protonix) 40 mg, oral, Daily before morning meal, First dose on Sun09/04/24 at 0700, Swallow whole. Do NOT crush, chew, or split tablet. 0638 (Given - Provider: Asia Amezcua R.N.) 0607 (Given - Provider: Evonne Bustos R.N.) 0618 (Given - Provider: Carrie Zapata R.N.) piperacillin-tazobactam in dextrose (iso osm) IVPB 2.25 g (Zosyn) 2.25 g, intravenous, at 100 mL/hr, Administer over 0.5 Hours, Every 6 hours, First dose on Sun09/02/24 at 2300, For 25 doses, Drug Monitoring Program: Pharmacist to adjust medication dosing based on indication and drug clearance factors., Indications: Skin and soft tissue infection 0457 (New Bag - Provider: Asia Amezcua R.N.)1112 (New Bag - Provider: Alice Butt R.N.)1709 (New Bag - Provider: Damon Cadena, R.N.)2255 (New Bag - Provider: Evonne Bustos R.N.) 0536 (New Bag - Provider: Evonne Bustos R.N.)1023 (New Bag - Provider: Jana Dc R.N.)1705 (New Bag - Provider: Jana Dc R.N.) 0018 (New Bag - Provider: Carrie Zapata R.N.)0521 (New Bag - Provider: Carrie Zapata R.N.)1040 (New Bag - Provider: Jana Dc R.N.)1700 (Due)2300 (Due) predniSONE tablet 17.5 mg (Deltasone) 17.5 mg, oral, Daily, First dose on Sun09/03/24 at 0900 0826 (Given - Provider: Alice Butt R.N.) 0857 (Given - Provider: Jana Dc R.N.) 0920 (Given - Provider: Jana Dc R.N.) rOPINIRole tablet 0.5 mg (Requip) 0.5 mg, oral, 3 times daily, First dose (after last modification) on Sun09/03/24 at 0600 0524 (Given - Provider: Asia Amezcua R.N.)1112 (Given - Provider: Alice Butt R.N.)2109 (Given - Provider: Evonne Bustos R.N.) 0536 (Given - Provider: Evonne Bustos R.N.)124 (Given - Provider: Moon Hackett, C.N.A.)2114 (Given - Provider: Evonne Bustos R.N.) 05 (Given - Provider: Carrie Zapata R.N.)121 (Given - Provider: Moon Hackett C.N.A.)2099 (Due) sennosides-docusate sodium 8.6-50 mg per tablet 1 tablet (Senokot-S) 1 tablet, oral, 2 times daily, First dose on Sun09/03/24 at 0900 0826 (Given - Provider: Alice Butt R.N.)2109 (Not Given - Provider: Evonne Bustos R.N. - Reason: Patient/family refused) 08 (Not Given - Provider: Jana Dc R.N. - Reason: Patient/family refused)2114 (Not Given - Provider: Evonne Bustos R.N. - Reason: Patient/family refused) 09 (Not Given - Provider: Jana Dc R.N. - Reason: Patient/family refused)2099 (Due) tamsulosin 24 hr capsule 0.4 mg (Flomax) 0.4 mg, oral, Daily at bedtime, First dose on Sun09/03/24 at 2100, Swallow whole. Do NOT crush, chew or open capsule. 2108 (Given - Provider: Evonne Bustos R.N.) 2114 (Given - Provider: Evonne Bustos R.N.) 2099 (Due) torsemide tablet 60 mg (Demadex) 60 mg, oral, Daily, First dose (after last modification) on 09/06/24 at 0915 0920 (Given - Provider: Jana Dc R.N.) vancomycin in NaCl 0.9% IVPB 1,500 mg (COMPLETED) 1,500 mg, intravenous, at 167 mL/hr, Administer over 90 Minutes, Once, On [place] 09/04/24 at 0230, For 1 dose, Drug Monitoring Program: Pharmacist to adjust medication dosing based on indication and drug clearance factors., Indications: Skin and soft tissue infection 0243 (New Bag - Provider: Asia Amezcua RJarrettNJarrett) warfarin management (Jantoven) oral, Daily, First dose on Sun09/02/24 at 2200, Pharmacist to Dose: Yes, Target INR: 2 - 3, Comorbidities that constitute Warfarin Sensitivity: Acute heart failure (e.g., fluid retention, pulmonary edema), Indication: Atrial fibrillation (AF), Therapy type: Continuation Warfarin therapy 170 (Due) 170 (Due) 170 (Due) warfarin tablet 2 mg (Jantoven) (COMPLETED) 2 mg, oral, Once, On [place] 09/04/24 at 1700, For 1 dose, HAZARDOUS - Handle with care. Swallow whole. Do NOT chew or split tablet. May crush using the [employer] system. 1711 (Given - Provider: Damon Cadena, R.N.) warfarin tablet 2 mg (Jantoven) (COMPLETED) 2 mg, oral, Once, On Sun09/05/24 at 1700, For 1 dose, HAZARDOUS - Handle with care. Swallow whole. Do NOT chew or split tablet. May crush using the [employer] system. 170 (Given - Provider: Jana Dc RJarrettNJarrett) warfarin tablet 3 mg (Jantoven) 3 mg, oral, Once, On 09/06/24 at 1700, For 1 dose, HAZARDOUS - Handle with care. Swallow whole. Do NOT chew or split tablet. May crush using the [employer] system. 1700 (Due) Continuous Medication Order 09/04/2024 09/05/2024 09/06/2024 heparin (porcine) 100 Units/mL in NaCl 0.45% 250 mL infusion 0-30 Units/kg/hr ? 78.9 kg Dosing weight (0-23.67 mL/hr), intravenous, Continuous, Starting on Sun09/05/24 at 1000, 25,000 Units in 250 mL, Intensity type: Moderate, Starting Dose (units/kg/hr): 12, Anti-Xa < 0.1: Adjust Dose (Units/kg/hr) by: 4, Anti-Xa < 0.1: Loading Dose (Units/kg): 60, Anti-Xa < 0.1: Repeat anti-Xa: 6 hours, Anti-Xa 0.1-0.19: Adjust Dose (Units/kg/hr) by: 2, Anti-Xa 0.1-0.19: Loading Dose (Units/kg): 30, Anti-Xa 0.1-0.19: Repeat anti-Xa: 6 hours, Anti-Xa 0.2-0.5: Adjust Dose (Units/kg/hr) by: 0, Anti-Xa 0.2-0.5: Repeat anti-Xa: 6 hours. If two consecutive therapeutic result, re-check next AM., Anti-Xa > 0.19: Loading Dose (Units/kg): 0, Anti-Xa 0.51-0.6: Adjust Dose (Units/kg/hr) by: -1, Anti-Xa 0.51-0.6: Repeat anti-Xa: 6 hours, Anti-Xa 0.61-0.9: Hold Infusion: Stop infusion for 1 hour, Anti-Xa 0.61-0.9: Adjust Dose (Units/kg/hr) by: -2, Anti-Xa 0.61-0.9: Repeat anti-Xa: 6 hours after Heparin resumed, Anti-Xa 0.91-1.5: Hold Infusion: Stop infusion for 2 hours, Anti-Xa 0.91-1.5: Adjust Dose (Units/kg/hr) by: -4, Anti-Xa 0.91-1.5: Repeat anti-Xa: 6 hours after Heparin resumed, Anti-Xa > 1.5: Hold Infusion: Stop infusion until anti-Xa < 1.2, Anti-Xa > 1.5: Adjust Dose (Units/kg/hr) by: -4, Anti-Xa > 1.5: Repeat anti-Xa: every 2 hours until anti-Xa less than 1.2 1024 (New Bag - Provider: Jana Dc R.N. - Comment: Verified with Janneth ADAMS)185 (Rate/Dose Change - Provider: Jana Dc R.N. - Comment: Verified with Lois ADAMS)193 (Handoff - Provider: Evonne Bustos R.N. - Comment: with Clare ADAMS)230 (Handoff - Provider: Evonne Bustos R.N. - Comment: verified with Carrie ADAMS) 219 (Rate/Dose Change - Provider: Carrie Zapata R.N. - Comment: verfified with Mulugeta ADAMS)0731 (Handoff - Provider: Carrie Zapata R.N. - Comment: verified with Jana ADAMS)0732 (Rate/Dose Verify - Provider: Carrie Zapata R.N.)1006 (Rate/Dose Change - Provider: Jana Dc R.N. - Comment: Verified with Clara ADAMS)1359 (New Bag - Provider: Alondra Davies R.N.)1400 (Rate/Dose Verify - Provider: Alondra Davies R.N.) PRN Medication Order 09/04/2024 09/05/2024 09/06/2024 acetaminophen tablet 1,000 mg (TylenoL) 1,000 mg, oral, 4 times daily PRN, mild pain or score 1-3 of 10, Starting on Sun09/02/24 at 2141 0524 (Given - Provider: Asia Amezcua R.N.)1211 (Given - Provider: Alice Butt R.N.)2109 (Given - Provider: Evonne Bustos R.N.) 1118 (Given - Provider: Jana Dc R.N.) 0017 (Given - Provider: Carrie Zapata R.N.)0628 (Given - Provider: Carrie Zapata R.N.) bisacodyL suppository 10 mg (Dulcolax) 10 mg, rectal, Daily PRN, constipation, Starting on Sun09/03/24 at 0638 dextrose 40% gel 15 g of dextrose (Glutose) 15 g of dextrose, oral, As needed, low blood sugar, For glucose 54-70 mg/dL, Starting on Sun09/02/24 at 2302, If patient is conscious and able to swallow safely and has a fuctioning gastrointestinal tract or on Acarbose (Precose??) or Miglitol (Glyset??). May use tablets or gel. For hypoglycemia treatment. 1 g dextrose 40% gel = 0.4 g of dextrose (Example: 37.5 g dextrose 40% gel = 15 g of dextrose). dextrose 40% gel 30 g of dextrose (Glutose) 30 g of dextrose, oral, As needed, low blood sugar, For glucose less than 54 mg/dL, Starting on Sun09/02/24 at 2302, If no intravenous access is available and the patient is conscious and able to swallow safely and has a fuctioning gastrointestinal tract or on Acarbose (Precose??) or Miglitol (Glyset??). May use tablets or gel. For hypoglycemia treatment. 1 g dextrose 40% gel = 0.4 g of dextrose (Example: 37.5 g dextrose 40% gel = 15 g of dextrose). dextrose 50 % injection 12.5 g 12.5 g, intravenous, As needed, low blood sugar, For glucose 71-90 mg/dL, Starting on Sun09/02/24 at 2302, If the patient has intravenous access available, is not able to take oral feeding safely, does not have a functioning gastrointestinal tract or feeding tube, or is NPO, administer D50W intravenously for hypoglycemia prevention. dextrose 50 % injection 12.5 g 12.5 g, intravenous, As needed, low blood sugar, For glucose 54-70 mg/dL, Starting on Sun09/02/24 at 2302, If the patient has intravenous access available, is not able to take oral feeding safely, does not have a functioning gastrointestinal tract or feeding tube, or is NPO, administer D50W intravenously for hypoglycemia treatment. dextrose 50 % injection 25 g 25 g, intravenous, As needed, low blood sugar, For glucose less than 54 mg/dL, Starting on Sun09/02/24 at 2302, If intravenous access is available, administer D50W intravenously for hypoglycemia treatment. glucagon injection 1 mg (GlucaGen) 1 mg, subcutaneous, As needed, low blood sugar, For glucose 71-90 mg/dL, Starting on Sun09/02/24 at 2302, If patient is not able to take oral feeding safely, does not have a functioning gastrointestinal tract or feeding tube, or is NPO. Following treatment with Glucagon, a source of glucose should be started to maintain blood glucose level (e.g., patient should eat oral carbohydrates if allowed or prescriber should be contacted to consider starting fluids containing dextrose) Glucagon may only be given once per hypoglycemia prevention episode. glucose chewable tablet 16 g 16 g, oral, As needed, low blood sugar, For glucose 54-70 mg/dL, Starting on Sun09/02/24 at 2302, If patient is conscious and able to swallow safely and has a functioning gastrointestinal tract or on Acarbose (Precose??) or Miglitol (Glyset??). Administer 4 tablets to total 16 grams. May use tablets or gel. For hypoglycemia treatment. glucose chewable tablet 32 g 32 g, oral, As needed, low blood sugar, For glucose less than 54 mg/dL, Starting on Sun09/02/24 at 2302, If no intravenous access is available and the patient is conscious and able to swallow safely and has a functioning gastrointestinal tract or on Acarbose (Precose??) or Miglitol (Glyset??). Administer 8 tablets to total 32 grams. May use tablets or gel. For hypoglycemia treatment. heparin (porcine) 1,000 unit/mL injection 2,400 Units(Linked Group 1) 2,400 Units (rounded from 2,367 Units = 30 Units/kg ? 78.9 kg Dosing weight), intravenous, As needed, antiXa 0.1-0.19, Starting on Sun09/05/24 at 0939, Intensity type: Moderate, Anti-Xa < 0.1: Loading Dose (Units/kg): 60, Anti-Xa 0.1-0.19: Loading Dose (Units/kg): 30, Anti-Xa > 0.19: Loading Dose (Units/kg): 0 heparin (porcine) 1,000 unit/mL injection 4,700 Units(Linked Group 1) 4,700 Units (rounded from 4,734 Units = 60 Units/kg ? 78.9 kg Dosing weight), intravenous, As needed, antiXa less than 0.1, Starting on Sun09/05/24 at 0939, Intensity type: Moderate, Anti-Xa < 0.1: Loading Dose (Units/kg): 60, Anti-Xa 0.1-0.19: Loading Dose (Units/kg): 30, Anti-Xa > 0.19: Loading Dose (Units/kg): 0 naloxone injection 0.2 mg (Narcan) 0.2 mg, intravenous, As needed, respiratory depression, Starting on Sun09/03/24 at 0645, For RASS Score -4 or less, respiratory rate of less than 8 breaths/min. Notify provider/service and rapid response team (if available at institution). oxyCODONE IR tablet 5 mg (Roxicodone) 5 mg, oral, Every 6 hours PRN, moderate pain or score 4-6 of 10, Starting on Sun09/03/24 at 0644 0831 (Given - Provider: Alice Butt RSammi)1508 (Given - Provider: Damon Cadena, R.N.)2207 (Given - Provider: Evonne Bustos R.N.) 0536 (Given - Provider: Evonne Bustos R.NJarrett)1148 (Given - Provider: Jana Dc R.N.)1825 (Given - Provider: Jana Dc RJarrettNJarrett) 0017 (Given - Provider: Carrie Zapata RJarrettNJarrett)1040 (Given - Provider: Felipe GaryNJarrett) polyethylene glycol powder packet 17 g (Miralax) 17 g, oral, Daily PRN, constipation, Starting on Sun09/03/24 at 0638, Dissolve in 240 mLs (8 ounces) of water prior to giving. Avoid mixing with starch-based thickened liquids. Linked Groups Order Group 1: heparin (porcine) 1,000 unit/mL injection 2,400 UnitsJump to med 2,400 Units (rounded from 2,367 Units = 30 Units/kg ? 78.9 kg Dosing weight), intravenous, As needed, antiXa 0.1-0.19, Starting on Sun09/05/24 at 0939, Intensity type: Moderate, Anti-Xa < 0.1: Loading Dose (Units/kg): 60, Anti-Xa 0.1-0.19: Loading Dose (Units/kg): 30, Anti-Xa > 0.19: Loading Dose (Units/kg): 0 Or heparin (porcine) 1,000 unit/mL injection 4,700 UnitsJump to med 4,700 Units (rounded from 4,734 Units = 60 Units/kg ? 78.9 kg Dosing weight), intravenous, As needed, antiXa less than 0.1, Starting on Sun09/05/24 at 0939, Intensity type: Moderate, Anti-Xa < 0.1: Loading Dose (Units/kg): 60, Anti-Xa 0.1-0.19: Loading Dose (Units/kg): 30, Anti-Xa > 0.19: Loading Dose (Units/kg): 0 documented in this encounter Additional Health Concerns Assessment Noted Time PHQ-9 Depression Total Score: 3 08/30/20 24 6:00 AM CDT documented as of this encounter Care Teams Apartment House Manager Relationship Specialty Start Date End Date Elsewhere, Pcp PCP - General Internal Medicine 07/28/24 documented as of this encounter
--- OUTSIDE RECORDS SUMMARY | 2024-09-06 15:52 | XMS_ITS | Encounter Summary ---
Author Organization [facility] Address [address] [place] [address] Care Team Providers Care Oil Recovery Operator Name Role Phone Elsewhere, Pcp Primary Care Provider Unavailabl e Encounter Details Date Type Department Care Team (Late st Contact Info) Description 09/03/2024 9:50 AM CDT Ancillary Procedure Department of Nursing Arrived Social History Tobacco Use Types Packs/Day Years Used Date Smoking Tobacco: Never Smokeless Tobacco: Never Comments:Smoked recreational ly over 40 years ago - a few cigarettes once in a while. Alcohol Use Standard Drinks/Week Comments Never 0 (1 standard drink = 0.6 oz pur e alcohol) [facility] Utilities Answer Date Recorded In the past 12 months has e electric, gas, oil, or water [employer] threatened to shut off services in your [...] [facility] place to live 09/02/2024 Sex and [...] AM CDT Clinical Communication Virtual Review in [place], [place] [address] [place] [address] 09/16/2024 1:00 PM PROJECT LANDSCAPE ARCHITECT Appointment Department of Radiology, [facility], in [place], [place] [address] [place] [address] Deven Clement M.D., M.S. [address] [place] [phone] 09/16/2024 1:20 PM PROJECT LANDSCAPE ARCHITECT Appointment Department of Laboratory Medicine and Pathology, [facility] in [place], [place] [address] [place] [phone] Deven Clement M.D., M.S. [address] [place] [phone] 09/16/2024 1:40 PM PROJECT LANDSCAPE ARCHITECT Ancillary Procedure Department of Cardiovascular Medicine in [place], [place] [address] [place] [phone] Deven Clement M.D., M.S. [address] [place] [phone] 09/16/2024 4:00 PM PROJECT LANDSCAPE ARCHITECT Comprehensive Visit Department of Cardiovascular Medicine in [place], [place] [address] [place] [phone] Keagan Tellez M.D. [address] [place] [phone] documented as of this encounter Procedures Procedure Name Priority Date/Time Associated Diagnosis Comments NURSING IMAGE EXAM Routine 09/03/2024 9: 50 AM CDT documented in this encounter Results * Leg, left-Nursing Image Exam (09/03/2024 9:50 AM CDT) 09/03/2024 9:49 AM CDT Narrative [...] documented as of this encounter Care Teams Oil Recovery Operator Relationship Specialty Start Date End Date Elsewhere, Pcp PCP - General Internal Medicine 07/28/24 documented as of this encounter
--- OUTSIDE RECORDS SUMMARY | 2024-09-06 15:52 | XMS_ITS ---
Author Organization [facility] Address [address] [place] [address] Care Team Providers Care Padding Machine Operator Name Role Phone Unavailable Unavailable Unavailable Surgery Details Not on file Complications Check Surgery Details section. Procedure Estimated Blood Loss Check Surgery Details section. Procedure Findings Check Surgery Details section. Procedure Specimens Taken Check Surgery Details section.
--- OUTSIDE RECORDS SUMMARY | 2024-09-06 15:52 | XMS_ITS | Encounter Summary ---
Author Organization [facility] Address [address] [place] [address] Care Team Providers Care Deputy Sheriff Building Guard Name Role Phone Elsewhere, Pcp Primary Care Provider Unavailabl e Encounter Details Date Type Department Care Team (Late st Contact Info) Description 09/02/2024 9:40 PM CDT Ancillary Procedure Department of Dermatology Social History Tobacco Use Types Packs/Day Years Used Date Smoking Tobacco: Never Smokeless Tobacco: Never Comments:Smoked recreational ly over 40 years ago - a few cigarettes once in a while. Alcohol Use Standard Drinks/Week Comments Never 0 (1 standard drink = 0.6 oz pur e alcohol) [facility] Utilities Answer Date Recorded In the past 12 months has e electric, gas, oil, or water [employer] threatened to shut off services in your [...] [facility] [place] place to live 09/02/2024 Sex and Gender [...] AM CDT Clinical Communication Virtual Review in [place], [place] [address] [place] [address] 09/16/2024 1:00 PM POLISHING PAD MOUNTER Appointment Department of Radiology, [facility], in [place], [place] [address] [place] [address] Deven Clement M.D., M.S. [address] [place] [phone] 09/16/2024 1:20 PM POLISHING PAD MOUNTER Appointment Department of Laboratory Medicine and Pathology, [facility] in [place], [place] [address] [place] [phone] Deven Clement M.D., M.S. [address] [place] [phone] 09/16/2024 1:40 PM POLISHING PAD MOUNTER Ancillary Procedure Department of Cardiovascular Medicine in [place], [place] [address] [place] [phone] Deven Clement M.D., M.S. [address] [place] [phone] 09/16/2024 4:00 PM POLISHING PAD MOUNTER Comprehensive Visit Department of Cardiovascular Medicine in [place], [place] [address] [place] [phone] Keagan Tellez M.D. [address] [place] [phone] documented as of this encounter Procedures Procedure Name Priority Date/Time Associated Diagnosis Comments DERMATOLOGY IMAGE EXAM Routine 09/02/2024 9:40 PM CDT documented in this encounter Results * Right Leg 528a-Dermatology Image Exam (09/02/2024 9:40 PM CDT) 09/02/2024 9:40 PM CDT Narrative IIMS - [...] as of this encounter Care Teams Deputy Sheriff Building Guard Relationship Specialty Start Date End Date Elsewhere, Pcp PCP - General Internal Medicine 07/28/24 documented as of this encounter
--- OUTSIDE RECORDS SUMMARY | 2024-09-06 15:52 | XMS_ITS | Referral Summary ---
Author Organization [facility] Address [address] [place] [address] Care Team Providers Care Rock Duster Name Role Phone Elsewhere, Pcp Primary Care Provider Unavailabl e Source Comments Patient records contain information from all sites at [facility]. For routine questions regarding patient records, call [phone] during business hours, M-F 8:00 AM - 5:00 PM Central Time. Record requests for emergency care only can be directed to [phone] at any time.[facility] Encounters Date Type Department Care Team [...] 9:15 PM CDT - Present Hospital Encounter [facility], [facility], [facility], Fourth Floor [address] [place] [phone] Ranulfo Qureshi M.D. Eze Shah M.D. Kolar, Gururaj J, M.D. Nidia Inman M.D. Unspecified Open Wound Right Lower Leg Sequela [S81.801S] (Primary Dx); Severe Sepsis With Septic Shock (HCC) [R65.21]; Unspecified Open Wound Left Lower Leg Sequela [S81.802S]; Decline Functional Status [R53.81]; Cellulitis [L03.90] 09/02/2024 Intake [facility] 09/02/2024 Clinical Communication Department of Cardiovascular Medicine in [address] [phone] Mando Fang M.D., Ph.D. Post Hospital Follow-up 09/02/2024 Clinical Communication Department of Cardiovascular Medicine in [place], [place] [address] [place] [address] Eneida Loya R.N. 08/31/2024 9:50 AM CDT Ancillary Procedure Department of Nursing 08/31/2024 9:45 AM CDT Ancillary Procedure Department of Nursing 08/27/2024 1:37 PM CDT - 08/31/2024 3:15 PM CDT Hospital Encounter [facility], [facility], Fifth Floor [address] [place] [phone] Obdulio Salinas P.A.-C. Mundo Camacho M.D. Chet Mcduffie M.D. Mando Fang M.D., Ph.D. Edema Leg (Primary Dx); Decline Functional Status [R53.81] Discharge Disposition: Home or Self Care 08/28/2024 8:35 AM CDT Ancillary Procedure Department of Nursing 08/28/2024 8:30 AM CDT Ancillary Procedure Department of Nursing 08/27/2024 2:10 PM CDT Ancillary Procedure Department of Emergency Medicine 08/06/2024 Clinical Communication Division of Endocrinology in [address] [phone] Emerson Goddard R.N. Communication 08/05/2024 Clinical Communication Division of Endocrinology in [address] [phone] Lola Payan R.N. Dose Adjustment 08/04/2024 Clinical Communication Division of Endocrinology in [address] [phone] Emerson Goddard R.N. Communication 07/24/2024 4:49 PM CDT - 08/01/2024 2:08 PM CDT Hospital Encounter [facility], [facility], Fourth Floor [address] [place] [phone] Fanny Goodwin M.D., M.S. Haily Campbell APRN, [...] Department of Nursing 07/30/2024 Clinical Communication [facility] [address] [place] [phone] Barbara Valencia M.B., B.Ch. 07/28/2024 10:40 AM CDT Ancillary Procedure Department of Nursing 07/25/2024 1:35 PM CDT Ancillary Procedure Department of Nursing 07/25/2024 1:00 PM CDT Ancillary Procedure Department of Nursing 06/11/2024 1:30 PM CDT External Outreach Division of Nephrology and Hypertension in [place], [place] [address] [place] [address] Atif Nance Jr., D.O. Hypertensive Heart And [...] lancets 2 each daily. 200 each 08/01/20 24 2:47 PM CDT 024 2024 Suspended alcohol swabs pads, medicated Use as needed for diabetes control 1500 each 3 08/01/20 2:47 PM CDT Suspended blood sugar diagnostic strips 2 test daily. 200 test 08/01/20 24 2:47 PM CDT 024 2024 Suspended blood-glucose meter misc Test as directed for diabetes control. 1 each 08/01/20 24 2:47 PM CDT Suspended blood glucose control high,low (Accu-Chek Guide L1-L2 Ctrl Nimo) solution Glucose control solution provides an easy way to ensure accurate blood glucose testing. 1 each 08/01/20 2:47 PM CDT Suspended pen needle, diabetic (BD Ultra-Fine Short Pen Needle) 31 gauge x 5/16 needle 2 Injection daily. 100 each 08/01/20 2:47 PM CDT 2024 Suspended colchicine (Colcrys) 0.6 mg tablet Take 1 tablet (0.6 mg total) by mouth daily. 30 tablet 2023 pantoprazole (Protonix) 40 mg EC tablet Take 1 tablet (40 mg total) by mouth daily before morning meal. 30 tablet 08/01/20 2:47 PM CDT 2023 warfarin (Jantoven) 1 mg tabletIndicat ions:Prosthes is Aortic Valve Take 2 mg daily until your INR check with Anticoagulation Clinic 7 tablet 08/01/20 2:47 PM CDT Suspended predniSONE (Deltasone) 5 mg tablet Take 4 tablets (20 mg) by mouth daily for 28 days, THEN 3.5 tablets (17.5 mg) daily for 14 days, THEN 3 tablets (15 mg) daily for 14 days until pericardial appt. Further dose to be decided at appt. DO NOT STOP TAKING ABRUPTLY 1020 tablet 08/01/20 2:47 PM CDT 2023 Suspended torsemide (Demadex) [...] (two) times a day. 120 tablet 2 Suspended pantoprazole (Protonix) 40 mg EC tablet Take 40 mg by mouth daily before morning meal. Suspended colchicine (Colcrys) 0.6 mg tablet Take 0.6 mg by mouth daily. 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 I have a [facility] place to live 09/02/2024 Sex and Gender [...] AM CDT Clinical Communication Virtual Review in [place], [place] [address] [place] [phone] 09/16/2024 1:00 PM TRAIN DIRECTOR Appointment Department of Radiology, [facility], in [place], [place] [address] [place] [phone] Racquel, Deven Guerrero M.D., M.S. [address] [place] [phone] 09/16/2024 1:20 PM TRAIN DIRECTOR Appointment Department of Laboratory Medicine and Pathology, [facility], in [place], [place] [address] [place] [phone] Deven Clement M.D., M.S. [address] [place] [phone] 09/16/2024 1:40 PM TRAIN DIRECTOR Ancillary Procedure Department of Cardiovascular Medicine in [place], [place] [address] [place] [phone] Deven Clement M.D., M.S. [address] [place] [phone] 09/16/2024 4:00 PM TRAIN DIRECTOR Comprehensive Visit Department of Cardiovascular Medicine in [place], [place] [address] [place] [phone] Keagan Tellez M.D. [address] [place] [phone] Medical Devices Implanted Type Area Director Oracle Database Device Identifier Shelf Expiration Date Model / Serial / Lot Vlv Aort Cnf [facility] 23 - [id number] - [id number] Implanted:Qty: 1 on 09/19/2023 by Sarah Miller M.D., M.P.H. at [facility] Cardiac Valve Prosthesis N/A: Aortic Valve Artivion (Prev. CryoLife) 2028 ONCE-2 3 / [id number] / Description:MRI conditional up to 3T, normal mode, per information technology officer. [email or web address] AFK Clp Hrzn Ti 24 Clp Md Bainu - [id number] Implanted:Qty: 1 on 09/19/2023 by Sarah Miller M.D., M.P.H. at [facility] Hardware e.g. pins/screws/r ods N/A: Chest Teleflex Tapastreet [id number] 04/29/2028 [id number] / / [id number] Clp Hrzn Ti 6 Clp Md Akhil - [id number] Implanted:Qty: 1 on 09/19/2023 by Sarah Miller M.D., M.P.H. at [facility] Hardware e.g. pins/screws/r ods N/A: Chest Teleflex LLC [id number] / / Clp Hrzn Ti 24 Clp Sm Red - [id number] Implanted:Qty: 1 on 09/19/2023 by Sarah Miller M.D., M.P.H. at [facility] Hardware e.g. pins/screws/r ods N/A: Chest [employer]flex [employer] [id number] / / Clp Hrzn Ti 24 Clp Sm Red - [id number] Implanted:Qty: 1 on 09/19/2023 by Sarah Miller M.D., M.P.H. at [facility] Hardware e.g. pins/screws/r ods N/A: Chest Teleflex LLC [id number] / / Bellvue Surg Tfln 1x6 - [id number] Implanted:Qty: 1 on 09/19/2023 by Sarah Miller M.D., M.P.H. at [facility] Hardware e.g. pins/screws/r ods N/A: [employer] [id number] / / Medtronic Linq-05/05/2019 Implanted:04/13 by Chet Badillo M.D., Ph.D. (Quantity not on file) Implantable Loop Recorder Chest Medtronic [id number] / [id number] / Description:MR Conditional 1 .5T and [...] LIPID PANEL, S Routine 12/24/2023 9:44 AM TRAIN DIRECTOR Stenosis Aortic Valve Acquired COLONOSCOPY Routine 11/21/2022 from Last 3 Months or Most Recently Relevant to Health Maintenance Results * (ABNORMAL) Glucose, POCT (09/06/2024 12:17 PM CDT) Only the most recent of73 resultswithin the time period is included. Glucose, POCT, B 153(H) 70 - 140 mg/dL 09/06/2024 12:21 PM CDT PCLX Site Capillary 09/06/2024 12:21 PM CDT PCLX Last Intake 3-4 hours 09/06/2024 12:21 PM CDT PCLX Blood 09/06/2024 12:1 7 PM CDT 09/06/2024 12:22 PM CDT us Unknown Provider LAB POCT ORDERABLES-MANUAL Eliana l Result Performing Organization Address City/[facility]/ZIP Co de Phone Number POC [facility] [address] [place] [address], [facility] PCLX [facility] [address] [place] [address] * (ABNORMAL) Morphology Eval (special smear) (09/06/2024 [...] ADD-ON Final Resu lt Performing Organization Address City/[facility]/ZIP Co de Phone Number [facility] [address] [place] [address], [facility] DHPM [facility] [address] [place] [address] * (ABNORMAL) Prothrombin Time (PT) (09/06/2024 7:20 [...] CDT 09/06/2024 8:15 AM CDT Yosef Lieberman APRN C.N.P., D.N.P. LAB BLOOD AD D-ON Final Result Performing Organization Address [facility]/ZIP Co de Phone Number [address] [address], [facility] [address] [address] * Heparin Anti-Xa Assay (09/06/2024 7:20 AM [...] ADD-ON Fin al Result Performing Organization Address City/[facility]/ZIP Co de Phone Number [facility] [address] [place] [address], [facility] [address] [place] [address] * (ABNORMAL) CBC without Differential (09/06/2024 7:20 AM CDT) Only the most recent of8 resultswithin the time period is included. Pathologist [facility] Hemoglobin 11.0(L) 13.2 - 16.6 g/dL 09/06/2024 [...] M.S.N. LAB BLOOD AD D-ON Final Result [facility] [address] [place] [address], [facility] [address] [place] [address] * Phosphorus Inorganic (09/06/2024 7:20 AM CDT) Only the most recent of3 resultswithin the time period is included. Pathologist [facility] Phosphorus (Inorganic), S 3.1 2.5 - 4.5 mg/dL 09/06/2024 8:40 AM CDT DTL Blood (Blood, Venous) 09/06/2024 7:20 AM CDT 09/06/2024 8:23 AM CDT us Nori Benítez M.D. LAB BLOOD ADD-ON Final Resu Performing Organization Address City/[facility] Co de Phone Number [facility] [address] [place] [address] * (ABNORMAL) Magnesium (09/06/2024 7:20 AM CDT) Only the most recent of9 resultswithin the time period is included. Magnesium, S 2.7(H) 1.7 - 2.3 mg/dL 09/06/2024 8:40 AM CDT DTL Blood (Blood, Venous) 09/06/2024 7:20 AM CDT 09/06/2024 8:23 AM CDT us Nori Benítez M.D. LAB BLOOD ADD-ON Final [facility] Per[facility] Organization Address [facility] Co de Phone Number [facility] 200 [place] [address], [address] [address] * (ABNORMAL) Basic Metabolic Panel (09/06/2024 7:20 [...] AD D-ON Final Result Performing Organization Address City/[facility]/ZIP Co de Phone Number [facility] [address] [place] [address] * APTT (Activated Partial Thromboplastin Time) (09/05/2024 10:01 AM CDT) Activated Partial Thrombopl Time, P 37 25 - 37 sec 09/05/2024 10:36 AM CDT [facility] Blood (Blood, Venous) 09/05/2024 10:01 AM CDT 09/05/2024 10:09 AM CDT Nori Benítez M.D. LAB BLOOD ADD-ON Final Resu lt Performing Organization Address City/[facility]/ZIP Co de Phone Number [facility] [address] [facility] [address] [place] [address] * (ABNORMAL) Albumin (09/05/2024 7:32 AM CDT) Albumin, S 3.2(L) 3.5 - 5.0 g/dL 09/05/2024 9:01 AM CDT DTL Blood (Blood, Venous) 09/05/2024 7:32 AM CDT 09/05/2024 8:42 AM CDT Renzo Tejada P.A.-C. LAB BLOOD ADD-ON Final R esult Performing Organization Address City/[facility] Co de Phone Number [address] [address], [facility] [place] [address] * Leg, right-Physical Medicine And Rehab Image [...] PROCE DURES Final Result Performing Organization Address City/[facility] Co de Phone Number IICT NA * Vancomycin, Random (09/04/2024 12:29 AM CDT) Vancomycin, Random, S 9.7 mcg/mL 09/04/2024 2:02 AM CDT DTL Comment: ----REFERENCE VALUE---- Peak: 20.0 - 45.0 Trough: 10.0 - 20.0 Blood (Blood, Venous) 09/04/2024 12:29 AM CDT 09/04/2024 1:17 AM CDT Eze Shah M.D. LAB BLOOD NON ADD-ON Final Result Performing Organization Address [facility]/ZIP Co de Phone Number [phone] [place] [address] * (ABNORMAL) Dipstick, Urine (09/03/2024 3:49 PM [...] ORDERABLES F inal Result Performing Organization Address [facility] Co de Phone Number [phone] [place] [address] [address] * Microscopic Manual (09/03/2024 3:49 PM CDT) [...] P.A.-C. LAB URINE ORDERABLES F inal Result [facility] [address] [place] [address], [facility] 200 [place] [address] * pH, Urine (09/03/2024 3:49 PM CDT) Only the most recent of2 resultswithin the time period is included. pH, U 5.1 4.5 - 8.0 09/03/2024 5:1 5 PM CDT DTL Urine 09/03/2024 3:49 PM CDT 09/03/2024 4:31 PM CDT Emory Glasgow P.A.-C. LAB URINE ORDERABLES F inal Result Performing Organization Address City/[facility]/ZIP Co de Phone Number [facility] [address] [place] [address], [facility] [address] [place] [address] * Osmolality, Urine (09/03/2024 3:49 PM CDT) Only the most recent of2 resultswithin the time period is included. Osmolality, U 409 150 - 1150 mOsm/kg 09/03/2024 5:15 PM CDT DTL Urine 09/03/2024 3:49 PM CDT 09/03/2024 4:31 PM CDT Emory Glasgow P.A.-C. LAB URINE ORDERABLES F inal Result [facility] [address] [place] [address], [facility] [address] [place] [address] * (ABNORMAL) Urinalysis, with Microscopic: Urine, Midstream [...] P.A.-C. LAB URINE ORDERABLES F inal Result [facility] [address] [place] [address], [facility] [address] [place] [address] * Leg, right-Nursing Image Exam (09/03/2024 9:51 [...] PROCE DURES Final Result Performing Organization Address [facility] de Phone Number IIMS NA * ECG 12 Lead (09/03/2024 6:51 AM CDT) Only the most recent of5 resultswithin the time period is included. Ventricular Rate ECG/Min 72 BPM MUSE IL Interval 140 ms MUSE QRSD Interval 76 ms MUSE QT Interval 396 ms MUSE QTC Interval 433 ms MUSE P [place] 40 degrees MUSE R [place] 69 degrees MUSE T Wave [place] 100 degrees MUSE 09/03/2024 6:51 AM CDT [...] ECG ORDERABLES Final Result Performing Organization Address [facility] de Phone Number MUSE NA * (ABNORMAL) Lactate (09/03/2024 5:27 AM CDT) Only the most recent of4 resultswithin the time period is included. Lactate, P 2.3(H) 0.5 - 2.2 mmol/L 09/03/2024 6:16 AM CDT DTL Blood (Blood, Venous) 09/03/2024 5:27 AM CDT 09/03/2024 6:03 AM CDT Yosef Lieberman APRN, C.N.P., D.N.P. LAB BLOOD NO N ADD-ON Final Result Performing Organization Address [facility]/ZIP Co de Phone Number [facility] [address] [place], [place] [phone] [place] [address] 200 [place] [address] * (ABNORMAL) Cystatin C with Estimated GFR [...] ADD-ON Final Res ult Performing Organization Address City/[facility]/ZIP Co de Phone Number [facility] [address] [place] [address], [facility] [address] [place] [address] * (ABNORMAL) Troponin T, 2 Hour with [...] TR OPONIN Final Result Performing Organization Address City/[facility]/ZIP Co de Phone Number [facility] [address] [place] [address] * Staph aureus / MRSA, Nasal, PCR (09/03/2024 12:09 AM CDT) Pathologist [facility] Staphylococcus aureus, PCR Negative Negative 09/03/2024 3:09 AM CDT DTL MRSA, PCR Negative Negative 09/03/2024 3:09 AM CDT DTL Swab (Nares) 09/03/2024 12:0 9 AM CDT 09/03/2024 1:45 AM CDT Yosef Lieberman APRN, C.N.P., D.N.P. LAB MICROBIOLOGY - GENERAL ORDERABLES Final Result Performing Organization Address [facility] Co de Phone Number [facility] [address] [place] [place] [address] * (ABNORMAL) Troponin T, Baseline with 2 Hour/6 Hour Reflex Biomarker Panel (09/02/2024 9:58 PM CDT) Only the most recent of3 resultswithin the time period is included. Pathologist [facility] Troponin T, Baseline, 5th gen 171(H) <=15 ng/L 09/02/2024 10:57 PM CDT [facility] Comment:Consider acute myoca rdial injury Blood (Blood, Venous) 09/02/2024 9:58 PM CDT 09/02/2024 10:25 PM CDT Cata Mao APRN.N.P., D.N.P. LAB BLOOD TR OPONIN Final Result Performing Organization Address [facility]/ZIP Co de Phone Number [facility] [address] [place] [address], [facility] STMA [facility] [address] [place] [address] * (ABNORMAL) Hepatic Function Panel (09/02/2024 9:58 [...] AD D-ON Final Result Performing Organization Address City/[facility]/ZIP Co de Phone Number [facility] [address] [place] [address], [facility] DTL [facility] [address] [place] [address] * (ABNORMAL) Procalcitonin (09/02/2024 9:58 PM CDT) Pathologist [facility] Procalcitonin, S 3.82(H) 0.00 - 0.24 ng/mL [...] AD D-ON Final Result Performing Organization Address City/[facility]/ZIP Co de Phone Number [facility] [address] [place], [place] [phone] [place] [address] [facility] [address] [place] [address] * Lipase (09/02/2024 9:58 PM CDT) Pathologist [facility] Lipase, S 19 13 - 60 U/L 09/02/2024 11:00 PM CDT DTL Blood (Blood, Venous) 09/02/2024 9:58 PM CDT 09/02/2024 10:28 PM CDT Yosef Mio JAY, C.N.P., D.N.P. LAB BLOOD AD D-ON Final Result [facility] [address] [place], [place] [phone] [place] [address] [facility] [address] [place] [address] * (ABNORMAL) CRP (C-Reactive Protein) (09/02/2024 9:52 PM CDT) Only the most recent of3 resultswithin the time period is included. C-Reactive Protein (CRP), S 81.2(H) <5.0 mg/L 09/02/2024 11:34 PM CDT DTL Blood 09/02/2024 9:52 PM CDT 09/02/2024 11:09 PM CDT Yosef Lieberman APRN, C.N.P., D.N.P. LAB BLOOD AD D-ON Final Result Performing Organization Address City/[facility]/ZIP Co de Phone Number [facility] [address] [place] [address] * (ABNORMAL) CK (Creatine Kinase) (09/02/2024 9:52 PM CDT) Creatine Kinase (CK), S 610(H) 39 - 308 U/L 09/02/2024 11:34 PM CDT DTL Blood (Blood, Venous) 09/02/2024 9:52 PM CDT 09/02/2024 11:09 PM CDT [facility] APRN, C.N.P., D.N.P. LAB BLOOD AD D-ON Final Result Performing Organization Address City/[facility]/ZIP Co de Phone Number [facility] [address] [place] [address] * left Leg 528b-Dermatology Image Exam (09/02/2024 [...] TERI Final Result IIMS NA * (ABNORMAL) CBC with Differential, Blood [...] BLOOD ADD-ON Final Result Performing Organization Address City/[facility] Co de Phone Number [facility] [address] [place] [address], [facility] [address] [place] [address] [facility] [address] [place] [address] * Bacteria / Mee Culture, Blood #2 (08/29/2024 5:12 PM CDT) Only the most recent of2 resultswithin the time period is included. Pathologist [facility] Bacteria/Kimberlyn da Culture, Blood No growth after 5 days of incubation. 09/03/2024 6:02 PM CDT DTL Blood (Blood, Peripheral Draw) 08/29/2024 5:12 PM CDT 08/29/2024 5:41 PM CDT Comment:Specimen Source Site : Blood Narrative [facility] - 09/03/2024 6:02 PM CDT Received Bactec aerobic and Bactec anaerobic bottles Mando Fang M.D., Ph.D. LAB MICROBIOLOGY - GEN ERAL ORDERABLES Final Result Performing Organization Address [facility] de Phone Number [facility] [address] [place], [place] [address] [address] [place] [address] * Lactate for Sepsis with Reflex (08/29/2024 5:01 PM CDT) Only the most recent of2 resultswithin the time period is included. Pathologist [facility] Lactate, P 1.7 0.5 - 2.2 mmol/L 08/29/2024 5:36 PM CDT [facility] Blood (Blood, Venous) 08/29/2024 5:01 PM CDT 08/29/2024 5:20 PM CDT us Mando Fang M.D., Ph.D. LAB BLOOD NON ADD-ON F inal Result [facility] [address] [place] [address], [facility] [address] [place] [address] * (TTE) 2D ECHO DOPPLER COLOR (08/29/2024 [...] CABG x1, PVI, and DAHIANA amputation (19-SEP-2023, [place]). Echocardiogram performed per left ventricular function protocol [...] prosthesis, CABG x1, PVI,and DAHIANA amputation (19-SEP-2023, [place]). Echocardiogram performed per leftventricular function protocol + [...] 5662(H) <=540 pg/mL 08/27/2024 3:35 PM CDT [facility] Comment: NT-proBNP values less than 300 [...] P.A.-C. LAB BLOOD ADD-ON Final Res ult [facility] [address] [place] [address], [facility] [address] [place] [address] * DX Chest AP or PA and [...] NON RAD IMAGING PROCE DURES Final Result IICT NA * (ABNORMAL) Renal Function Panel (08/01/2024 [...] DTL Comment: Estimated GFR calculated using the 2021 CKD_EPI creatinine equation. Calcium, Total, S 9.2 [...] ADD-ON Eliana l Result Performing Organization Address [facility] de Phone Number [address] [address] * Microscopic Automated (07/31/2024 11:33 AM CDT) [...] ORDERABLES Eliana l Result Performing Organization Address [facility] Co de Phone Number [facility] [address] D[place] [phone] * US Kidneys Bilateral with Bladder (07/31/2024 [...] BLOOD ADD-ON Final Result Performing Organization Address [facility] Co de Phone Number [facility] [address] DTL [facility] 200 [place] [address] * (ABNORMAL) Troponin T, 5th Generation (07/26/2024 8:27 AM CDT) Troponin T, 5th gen 110(H) <=15 ng/L 07/26/2024 9:08 AM CDT [facility] Comment:Consider acute myoca rdial injury Blood (Blood, Venous) 07/26/2024 8:27 AM CDT 07/26/2024 8:32 AM CDT Neftaly Gomez M.D. LAB BLOOD ADD-ON Final Result Performing Organization Address [facility] de Phone Number [facility] [address] [facility]MA [facility] 200 [place] [address] * Iron and Total Iron-Binding Capacity (07/26/2024 [...] Ph.D. LAB BLOOD ADD-ON Eliana l Result [facility] 200 [place], [place] [phone] [place] [address] 200 [place] [address] * Fibrinogen (07/26/2024 7:21 AM CDT) Fibrinogen, P 385 200 - 393 mg/dL 07/26/2024 8:23 AM CDT DTL Blood (Blood, Venous) 07/26/2024 7:21 AM CDT 07/26/2024 7:56 AM CDT Yasmine Garduno M.D., Ph.D. LAB BLOOD ADD-ON Eliana l Result Performing Organization Address City/[facility] Co de Phone Number [facility] 200 [place], [place] [address] 200 [place] [address] * Reticulocytes (07/26/2024 7:21 AM CDT) Reticulocytes, B 1.46 0.60 - 2.71 % 07/26/2024 8:09 AM CDT DTL Absolute Reticulocyte 62.8 30.4 - 110.9 x10(9)/L 07/26/2024 8:09 AM CDT DTL Blood (Blood, Venous) 07/26/2024 7:21 AM CDT 07/26/2024 7:55 AM CDT Yasmine Garduno M.D., Ph.D. LAB BLOOD ADD-ON Eliana l Result [facility] 200 [place], [place] [address] 200 [place] [address] * (ABNORMAL) Haptoglobin (07/26/2024 7:21 AM CDT) Haptoglobin, S <14(L) 30 - 200 mg/dL 07/29/2024 8:13 AM CDT [facility] Blood (Blood, Venous) 07/26/2024 7:21 AM CDT 07/28/2024 6:34 AM CDT Yasmine Garduno M.D., Ph.D. LAB BLOOD ADD-ON Eliana l Result [facility] [address] [place] [address] [facility] [address] [place] [address] * Folate (07/26/2024 7:21 AM CDT) Pathologist [facility] Folate, S 11.6 >=4.0 mcg/L 07/28/2024 8: 00 AM CDT DT Blood (Blood, Venous) 07/26/2024 7:21 AM CDT 07/26/2024 8:10 AM CDT Yasmine Garduno M.D., Ph.D. LAB BLOOD ADD-ON Eliana l Result [facility] [address] [place] [address], [facility] [address] [place] [address] * Ferritin (07/26/2024 7:21 AM CDT) Pathologist [facility] Ferritin, S 179 31 - 409 mcg/L 07/26/2024 8:46 AM CDT DT Blood (Blood, Venous) 07/26/2024 7:21 AM CDT 07/26/2024 8:10 AM CDT Yasmine Garduno M.D., Ph.D. LAB BLOOD ADD-ON Eliana l Result [facility] 200 [place] [address], [facility] 200 [place] [address] * (ABNORMAL) Vitamin B12 Assay (07/26/2024 7:21 AM CDT) Pathologist [facility] Vitamin B12 Assay, S 1206(H) 180 - 914 ng/L 07/28/2024 8:01 AM CDT [facility] Comment: ----ADDITIONAL INFORMATION---- In patients being evaluated [...] Ph.D. LAB BLOOD ADD-ON Eliana l Result [facility] 200 [place], [place] [address] 200 [place] [address] * (ABNORMAL) Troponin T, 6h, 5th Gen (07/25/2024 7:26 PM CDT) Only the most recent of2 resultswithin the time period is included. [facility] Troponin T, 6 hr, 5th gen 106(H) [...] 7:26 PM CDT 07/25/2024 7:33 PM CDT us Barbara Jay B.Ch. LAB BLOOD TROPON IN Final Result [facility] [address] [place] [address], [place] [facility] [address] [place] [address] * (TTE) 2D ECHO DOPPLER COLOR (07/25/2024 [...] CABG x1, PVI, and DAHIANA amputation (19-SEP-2023, [place]). 3. Small left ventricular chamber size. Abnormal [...] CABG x1, PVI, and DAHIANA amputation (19-SEP-2023, [place]). Echocardiogram performed per left ventricular function protocol [...] prosthesis, CABG x1,PVI, and DAHIANA amputation (19-SEP-2023, [place]). 3. Small left ventricular chamber size. Abnormal [...] prosthesis, CABG x1, PVI,and DAHIANA amputation (19-SEP-2023, [place]). Echocardiogram performed per leftventricular function protocol + [...] * Sedimentation Rate (07/25/2024 1:49 PM CDT) [facility] Sedimentation Rate, B 13 3 - 28 mm/h 07/25/2024 4:17 PM CDT DTL Blood (Blood, Venous) 07/25/2024 1:49 PM CDT 07/25/2024 2:36 PM CDT Neftaly Gomez M.D. LAB BLOOD ADD-ON Final Result [facility] [address] [place] [address], [facility] [address] [place] [address] * Lipid Panel (12/24/2023 9:44 AM TRAIN DIRECTOR) Pathologist [facility] Triglycerides 68 mg/dL 12/24/2023 1:00 PM TRAIN DIRECTOR DTL Comment: ----REFERENCE VALUE---- Normal: <150 mg/dL Borderline High: 150-199 mg/dL High: 200-499 mg/dL Very High: > or =500 mg/dL Cholesterol, Total 107 mg/dL 2023 1:00 PM TRAIN DIRECTOR DTL Comment: ----REFERENCE VALUE---- Desirable: < 200 mg/dL Borderline High: 200 - 239 mg/dL High: > or = 240 mg/dL Cholesterol, LDL, Calculated 50 mg/dL 12/24/2023 1:00 PM TRAIN DIRECTOR DTL Comment: ----REFERENCE VALUE---- Desirable: <100 mg/dL Above Desirable: 100-129 mg/dL Borderline High: 130-159 mg/dL High: 160-189 mg/dL Very High: >=190 mg/dL ----ADDITIONAL INFORMATION---- LDL cholesterol calculated using the Iglesias/NIH equation. Cholesterol, HDL, S 42 >=40 mg/dL 12/24/2023 1:00 PM TRAIN DIRECTOR DTL Cholesterol, Non-HDL, Calculated 65 mg/dL 12/24/2023 1:00 PM TRAIN DIRECTOR DTL Comment: ----REFERENCE VALUE---- Desirable: <130 mg/dL Above Desirable: 130-159 mg/dL Borderline High: 160-189 mg/dL High: 190-219 mg/dL Very High: > or =220 mg/dL Fasting (8 HR or more) yes 12/24/2023 10:18 AM TRAIN DIRECTOR DTL Blood (Blood, Venous) 12/24/2023 9:44 AM TRAIN DIRECTOR 12/24/2023 10:18 AM TRAIN DIRECTOR Gudelia Soto M.D. LAB BLOOD ADD-ON Final Result [facility] [address] [place] [address], [facility] [address] [place] [address] * Colonoscopy (11/21/2022) EXT Colonoscopy Normal - See Scanned Report for Details Normal - See Scanned Report for Details, HIMS - Report Received and Scanned Historical Provider GI PROCEDURE ORDERABLES Eliana l Result from Last 3 Months or Most Recently Relevant to Health Maintenance Insurance AARP Advance Directives For more information, please contact: [phone] * Full Code (Latest Code Status on [...] Answer Comments Full Code: Discussed Care Teams Rock Duster Relationship Specialty Start Date End Date Elsewhere, Pcp PCP - General Internal Medicine 07/28/24
--- OUTSIDE RECORDS SUMMARY | 2024-09-06 15:52 | XMS_ITS | Encounter Summary ---
Author Organization [facility] Address [address] [place] [address] Care Team Providers Care Transportation Economics Teacher Name Role Phone Elsewhere, Pcp Primary Care Provider Unavailabl e Encounter Details Date Type Department Care Team (Late st Contact Info) Description 09/02/2024 9:45 PM CDT Ancillary Procedure Department of Dermatology Social History Tobacco Use Types Packs/Day Years Used Date Smoking Tobacco: Never Smokeless Tobacco: Never Comments:Smoked recreational ly over 40 years ago - a few cigarettes once in a while. Alcohol Use Standard Drinks/Week Comments Never 0 (1 standard drink = 0.6 oz pur e alcohol) [facility] Utilities Answer Date Recorded In the past 12 months has e electric, gas, oil, or water [email or web address] threatened to shut off services in your [...] your living situation today? I have a [facility] place to live 09/02/2024 Sex and Gender [...] CDT Clinical Communication Virtual Review in [place], [place] [address] [place] [address] 09/16/2024 1:00 PM REWINDER Appointment Department of Radiology, [facility], in [place], [place] [address] [place] [address] Deven Clement M.D., M.S. [address] [place] [phone] 09/16/2024 1:20 PM REWINDER Appointment Department of Laboratory Medicine and Pathology, [facility] in [place], [place] [address] [place] [phone] Deven Clement M.D., M.S. [address] [place] [phone] 09/16/2024 1:40 PM REWINDER Ancillary Procedure Department of Cardiovascular Medicine in [place], [place] [address] [place] [phone] Deven Clement M.D., M.S. [address] [place] [phone] 09/16/2024 4:00 PM REWINDER Comprehensive Visit Department of Cardiovascular Medicine in [place], [place] [address] [place] [phone] Keagan Tellez M.D. [address] [place] [phone] documented as of this encounter Procedures Procedure Name Priority Date/Time Associated Diagnosis Comments DERMATOLOGY IMAGE EXAM Routine 09/02/2024 9:41 PM CDT documented in this encounter Results * left Leg 528b-Dermatology Image Exam (09/02/2024 9:41 PM CDT) 09/02/2024 9:40 PM CDT Narrative [...] documented as of this encounter Care Teams Transportation Economics Teacher Relationship Specialty Start Date End Date Elsewhere, Pcp PCP - General Internal Medicine 07/28/24 documented as of this encounter
--- OUTSIDE RECORDS SUMMARY | 2024-09-06 15:52 | XMS_ITS | Encounter Summary ---
Author Organization [facility] Address [address] [place] [address] Care Team Providers Care Claims Auditor Name Role Phone Elsewhere, Pcp Primary Care Provider Unavailabl e Encounter Details Date Type Department Care Team (Late st Contact Info) Description 09/04/2024 9:30 AM CDT Ancillary Procedure Department of Physical Medicine and Rehab Arrived Social History Tobacco Use Types Packs/Day Years Used Date Smoking Tobacco: Never Smokeless Tobacco: Never Comments:Smoked recreational ly over 40 years ago - a few cigarettes once in a while. Alcohol Use Standard Drinks/Week Comments Never 0 (1 standard drink = 0.6 oz pur e alcohol) [facility] Utilities Answer Date Recorded In the past 12 months has e [employer], gas, oil, or water [employer] threatened to shut off services in your [...] a [facility] place to live 09/02/2024 Sex and [...] AM CDT Clinical Communication Virtual Review in [place], [place] [address] [place] [address] 09/16/2024 1:00 PM FISHER TROLL LINE Appointment Department of Radiology, [facility], in [place], [place] [address] [place] [address] Deven Clement M.D., M.S. [address] [place] [phone] 09/16/2024 1:20 PM FISHER TROLL LINE Appointment Department of Laboratory Medicine and Pathology, [facility] in [place], [place] [address] [place] [address] Deven Clement M.D., M.S. [address] [place] [phone] 09/16/2024 1:40 PM FISHER TROLL LINE Ancillary Procedure Department of Cardiovascular Medicine in [place], [place] [address] [place] [phone] Deven Clement M.D., M.S. [address] [place] [phone] 09/16/2024 4:00 PM FISHER TROLL LINE Comprehensive Visit Department of Cardiovascular Medicine in [place], [place] [address] [place] [address] Keagan Tellez M.D. [address] [place] [phone] documented as of this encounter Procedures Procedure Name Priority Date/Time Associated Diagnosis Comments PHYSICAL MEDICINE AND REHAB IMAGE EXAM Routine 09/04/2024 9:30 AM CDT documented in this encounter Results * Leg, left-Physical Medicine And Rehab Image Exam (09/04/2024 9:30 [...] documented as of this encounter Care Teams Claims Auditor Relationship Specialty Start Date End Date Elsewhere, Pcp PCP - General Internal Medicine 07/28/24 documented as of this encounter
--- OUTSIDE RECORDS SUMMARY | 2024-09-06 15:53 | XMS_ITS | Encounter Summary ---
Author Organization [facility] Address [address] [place] [address] Care Team Providers Care Elderly Companion Name Role Phone Elsewhere, Pcp Primary Care Provider Unavailabl e Encounter Details Date Type Department Care Team (Latest Contact Info) Description 09/02/2024 Clinical Communication Department of Cardiovascular Medicine in [place], [place] [address] [place] [address] Eneida Loya, RJarrettNJarrett [address] [place] [address] Social History Tobacco Use Types Packs/Day Years Used Date Smoking Tobacco: Never Smokeless Tobacco: Never Comments:Smoked recreational ly over 40 years ago - a few cigarettes once in a while. Alcohol Use Standard Drinks/Week Comments Never 0 (1 standard drink = 0.6 oz pur e alcohol) [facility] Utilities Answer Date Recorded In the past 12 months has [facility] [employer], gas, oil, or water [employer] threatened to shut off services in your [...] your living situation today? I have a [facility] [employer] place to live 09/02/2024 Sex and Gender [...] AM CDT Clinical Communication Virtual Review in [place], [place] [address] [place] [address] 09/16/2024 1:00 PM CHOCOLATE PACKER Appointment Department of Radiology, [facility] in [place], [place] [address] [place] [phone] Deven Clement M.D., M.S. [address] [place] [phone] 09/16/2024 1:20 PM CHOCOLATE PACKER Appointment Department of Laboratory Medicine and Pathology, [facility] in [place], [place] [address] [place] [phone] Deven Clement M.D., M.S. [address] [place] [phone] 09/16/2024 1:40 PM CHOCOLATE PACKER Ancillary Procedure Department of Cardiovascular Medicine in [place], [place] [address] [place] [phone] Deven Clement M.D., M.S. [address] [place] [phone] 09/16/2024 4:00 PM CHOCOLATE PACKER Comprehensive Visit Department of Cardiovascular Medicine in [place], [place] [address] [place] [phone] Keagan Tellez M.D. [address] [place] [phone] documented as of this encounter Visit Diagnoses Not on filedocumented in this encounter Additional Health Concerns Assessment Noted Time PHQ-9 Depression Total Score: 3 08/30/20 24 6:00 AM CDT documented as of this encounter Care Teams Elderly Companion Relationship Specialty Start Date End Date Elsewhere, Pcp PCP - General Internal Medicine 07/28/24 documented as of this encounter
--- OUTSIDE RECORDS SUMMARY | 2024-09-06 15:53 | XMS_ITS | Encounter Summary ---
Author Organization [facility] Address [address] [place] [address] Care Team Providers Care Interventional Technologist Name Role Phone Elsewhere, Pcp Primary Care [...] 0.6 oz pur e alcohol) [facility] Utilities Answer Date Recorded In the [...] AM CDT Clinical Communication Virtual Review in [place], [place] [address] [place] [address] 09/16/2024 1:00 PM HOLDER PILE DRIVING Appointment Department of Radiology, [facility], in [place], [place] [address] [place] [address] Deven Clement M.D., M.S. [address] [place] [phone] 09/16/2024 1:20 PM HOLDER PILE DRIVING Appointment Department of Laboratory Medicine and Pathology, [facility] in [place], [place] [address] [place] [phone] Deven Clement M.D., M.S. [address] [place] [phone] 09/16/2024 1:40 PM HOLDER PILE DRIVING Ancillary Procedure Department of Cardiovascular Medicine in [place], [place] [address] [place] [phone] Deven Clement M.D., M.S. [address] [place] [phone] 09/16/2024 4:00 PM HOLDER PILE DRIVING Comprehensive Visit Department of Cardiovascular Medicine in [place], [place] [address] [place] [phone] Keagan Tellez M.D. [address] [place] [phone] documented as of this encounter Procedures Procedure [...] as of this encounter Care Teams Interventional Technologist Relationship Specialty Start Date End Date Elsewhere, Pcp PCP - General Internal Medicine 07/28/24 documented as of this encounter
--- OUTSIDE RECORDS SUMMARY | 2024-09-06 15:53 | XMS_ITS | Encounter Summary ---
Author Organization [facility] Address [address] [place] [address] Care Team Providers Care Commissions Coordinator Name Role Phone Elsewhere, Pcp Primary Care Provider Unavailabl e Reason for Visit * Reason Onset Date Comments Communication 08/04/2024 Encounter Details Date Type Department Care Team (Latest Contact Info) Description 08/04/2024 Clinical Communication Division of Endocrinology in [place], [place] [address] [place] [phone] Emerson Goddard, R.N. Communication Social History Tobacco Use Types Packs/Day Years Used Date Smoking Tobacco: Never Smokeless Tobacco: Never Comments:Smoked recreational ly over 40 years ago - a few cigarettes once in a while. Alcohol Use Standard Drinks/Week Comments Never 0 (1 standard drink = 0.6 oz pur e alcohol) [facility] Utilities Answer Date Recorded In the past 12 months has [facility] [employer], gas, oil, or water [employer] threatened to shut off services in your [...] a [facility] place to live 07/25/2024 Sex and [...] AM CDT Clinical Communication Virtual Review in [address] [phone] 09/16/2024 1:00 PM MILL CRANE OPERATOR Appointment Department of Radiology, [facility] in [address] [phone] Deven Clement M.D., M.S. [address] [place] [phone] 09/16/2024 1:20 PM MILL CRANE OPERATOR Appointment Department of Laboratory Medicine and Pathology, [facility], in [place], [place] [address] [place] [phone] Deven Clement M.D., M.S. [address] [place] [phone] 09/16/2024 1:40 PM MILL CRANE OPERATOR Ancillary Procedure Department of Cardiovascular Medicine in [address] [phone] Deven Clement M.D., M.S. [address] [place] [address] 09/16/2024 4:00 PM MILL CRANE OPERATOR Comprehensive Visit Department of Cardiovascular Medicine in [place], [place] [address] [place] [address] Keagan Tellez M.D. [address] [place] [address] documented as of this encounter Visit Diagnoses Not on filedocumented in this encounter Additional Health Concerns Assessment Noted Time PHQ-9 Depression Total Score: 1 09/10/20 23 2:06 PM CDT documented as of this encounter Care Teams Commissions Coordinator Relationship Specialty Start Date End Date Elsewhere, Pcp PCP - General Internal Medicine 07/28/24 documented as of this encounter
--- OUTSIDE RECORDS SUMMARY | 2024-09-06 15:53 | XMS_ITS | Encounter Summary ---
Author Organization [facility] Address [address] [place] [address] Care Team Providers Care Manager Services Name Role Phone Elsewhere, Pcp Primary Care [...] drink = 0.6 oz pur e alcohol) [facility] Utilities Answer Date Recorded In the [...] living situation today? I have a [facility] place to live 08/27/2024 Sex and [...] AM CDT Clinical Communication Virtual Review in [place], [place] [address] [place] [address] 09/16/2024 1:00 PM EXECUTIVE PILOT Appointment Department of Radiology, [facility], in [place], [place] [address] [place] [address] Deven Clement M.D., M.S. [address] [place] [phone] 09/16/2024 1:20 PM EXECUTIVE PILOT Appointment Department of Laboratory Medicine and Pathology, [facility] in [place], [place] [address] [place] [phone] Deven Clement M.D., M.S. [address] [place] [phone] 09/16/2024 1:40 PM EXECUTIVE PILOT Ancillary Procedure Department of Cardiovascular Medicine in [place], [place] [address] [place] [phone] Deven Clement M.D., M.S. [address] [place] [phone] 09/16/2024 4:00 PM EXECUTIVE PILOT Comprehensive Visit Department of Cardiovascular Medicine in [place], [place] [address] [place] [phone] Keagan Tellez M.D. [address] [place] [phone] documented as of this encounter Procedures Procedure [...] as of this encounter Care Teams Manager Services Relationship Specialty Start Date End Date Elsewhere, Pcp PCP - General Internal Medicine 07/28/24 documented as of this encounter
--- OUTSIDE RECORDS SUMMARY | 2024-09-06 15:53 | XMS_ITS | Encounter Summary ---
Author Organization [facility] Address [address] [place] [address] Care Team Providers Care Insurance Examining Clerk Name Role Phone Elsewhere, Pcp Primary Care Provider Unavailabl e Reason for Visit * Reason Onset Date Comments Communication 08/06/2024 Encounter Details Date Type Department Care Team (Latest Contact Info) Description 08/06/2024 Clinical Communication Division of Endocrinology in [place], [place] [address] [place] [phone] Emerson Goddard, R.N. Communication Social History Tobacco Use Types Packs/Day Years Used Date Smoking Tobacco: Never Smokeless Tobacco: Never Comments:Smoked recreational ly over 40 years ago - a few cigarettes once in a while. Alcohol Use Standard Drinks/Week Comments Never 0 (1 standard drink = 0.6 oz pur e alcohol) [facility] Utilities Answer Date Recorded In the past 12 months has [facility] [employer], gas, oil, or water [employer] threatened to shut off services in your [...] [facility] 07/25/2024 Sex and Gender [...] AM CDT Clinical Communication Virtual Review in [address] [phone] 09/16/2024 1:00 PM LEASING MACHINE TENDER Appointment Department of Radiology, [facility] in [address] [phone] Deven Clement M.D., M.S. [address] [place] [phone] 09/16/2024 1:20 PM LEASING MACHINE TENDER Appointment Department of Laboratory Medicine and Pathology, [facility] in [place], [place] [address] [place] [phone] Deven Clement M.D., M.S. [address] [place] [phone] 09/16/2024 1:40 PM LEASING MACHINE TENDER Ancillary Procedure Department of Cardiovascular Medicine in [address] [phone] Deven Clement M.D., M.S. [address] [place] [address] 09/16/2024 4:00 PM LEASING MACHINE TENDER Comprehensive Visit Department of Cardiovascular Medicine in [place], [place] [address] [place] [phone] Keagan Tellez M.D. [address] [place] [phone] documented as of this encounter Visit Diagnoses Not on filedocumented in this encounter Additional Health Concerns Assessment Noted Time PHQ-9 Depression Total Score: 1 09/10/20 23 2:06 PM CDT documented as of this encounter Care Teams Insurance Examining Clerk Relationship Specialty Start Date End Date Elsewhere, Pcp PCP - General Internal Medicine 07/28/24 documented as of this encounter
--- OUTSIDE RECORDS SUMMARY | 2024-09-06 15:53 | XMS_ITS | Encounter Summary ---
Author Organization [facility] Address [address] [place] [address] Care Team Providers Care Coal Chute Worker Name Role Phone Elsewhere, Pcp Primary Care Provider Unavailabl e Encounter Details Date Type Department Care Team (Latest Contact Info) Description 09/02/2024 Intake [facility] Social History Tobacco Use Types Packs/Day Years Used Date Smoking Tobacco: Never Smokeless Tobacco: Never Comments:Smoked recreational ly over 40 years ago - a few cigarettes once in a while. Alcohol Use Standard Drinks/Week Comments Never 0 (1 standard drink = 0.6 oz pur e alcohol) [facility] Utilities Answer Date Recorded In the past [...] a [facility] place to live 09/02/2024 Sex and Gender Information Value Date Recorded Sex Assigned at Male 08/29/2023 11:06 AM CDT Legal Sex Male 9:17 AM CDT Gender Identity Male 08/29/2023 11:06 AM CDT Sexual Orientation Straight 08/29/2023 11 :06 AM CDT documented as of this encounter Last Filed Vital Signs Vital Sign Reading Time Taken Comments Blood Pressure 108/62 09/02/2024 8:48 PM CDT Pulse - - Temperature - - Respiratory Rate 22 09/02/2024 8:48 PM CDT Oxygen Saturation 95% 09/02/2024 8:48 PM CDT Inhaled Oxygen Concentration - - Weight - - Height - - Body Mass Index - - documented in this encounter Plan of Treatment Upcoming Encounters Date Type Department Care Team (Latest Contact Info) Description 09/08/2024 7:15 AM CDT Clinical Communication Virtual Review in [place], [place] 200 [place] [address] 09/16/2024 1:00 PM PRESIDENT EDUCATIONAL INSTITUTION Appointment Department of Radiology, [facility], in [address] [phone] Deven Clement M.D., M.S. [address] [place] [phone] 09/16/2024 1:20 PM PRESIDENT EDUCATIONAL INSTITUTION Appointment Department of Laboratory Medicine and Pathology, [facility] in [address] [phone] Deven Clement M.D., M.S. [address] [place] [phone] 09/16/2024 1:40 PM PRESIDENT EDUCATIONAL INSTITUTION Ancillary Procedure Department of Cardiovascular Medicine in [address] [phone] Deven Clement M.D., M.S. [address] [place] [phone] 09/16/2024 4:00 PM PRESIDENT EDUCATIONAL INSTITUTION Comprehensive Visit Department of Cardiovascular Medicine in [address] [phone] Keagan Tellez M.D. [address] [place] [phone] documented as of this encounter Visit Diagnoses Not on filedocumented in this encounter Additional Health Concerns Assessment Noted Time PHQ-9 Depression Total Score: 3 08/30/20 24 6:00 AM CDT documented as of this encounter Care Teams Coal Chute Worker Relationship Specialty Start Date End Date Elsewhere, Pcp PCP - General Internal Medicine 07/28/24 documented as of this encounter
--- OUTSIDE RECORDS SUMMARY | 2024-09-06 15:53 | XMS_ITS | Encounter Summary ---
Author Organization [facility] Address [address] [place] [address] Care Team Providers Care Sub Assembly Team Worker Name Role Phone Elsewhere, Pcp Primary [...] living situation today? I have a [facility] place to live 08/27/2024 Sex and [...] AM CDT Clinical Communication Virtual Review in [place], [place] [address] [place] [phone] 09/16/2024 1:[address] Appointment Department of Radiology, [facility], in [place], [place] [address] [place] [phone] Deven Clement M.D., M.S. [address] [place] [phone] 09/16/2024 1:[address]OSS Appointment Department of Laboratory Medicine and Pathology, [facility] in [place], [place] [address] [place] [phone] Deven Clement M.D., M.S. [address] [place] [phone] 09/16/2024 1:[address] Ancillary Procedure Department of Cardiovascular Medicine in [place], [place] [address] [place] [phone] Deven Clement M.D., M.S. [address] [place] [phone] 09/16/2024 4:[address] Comprehensive Visit Department of Cardiovascular Medicine in [place], [place] [address] [place] [phone] Keagan Tellez M.D. [address] [place] [phone] documented as of this encounter Procedures Procedure [...] documented as of this encounter Care Teams Sub Assembly Team Worker Relationship Specialty Start Date End Date Elsewhere, Pcp PCP - General Internal Medicine 07/28/24 documented as of this encounter
--- OUTSIDE RECORDS SUMMARY | 2024-09-06 15:53 | XMS_ITS | Encounter Summary ---
Author Organization [facility] Address [address] [place] [address] Care Team Providers Care Visual Aid Expert Name Role Phone Elsewhere, Pcp Primary Care [...] 0.6 oz pur e alcohol) [facility] Utilities Answer Date Recorded In the past 12 months has e electric, gas, oil, or water [employer] threatened to shut off services in your [...] a [facility] place [facility] live 08/27/2024 Sex and [...] AM CDT Clinical Communication Virtual Review in [place], [place] [address] [place] [address] 09/16/2024 1:00 PM SERVICE ELECTRICIAN Appointment Department of Radiology, [facility], in [place], [place] [address] [place] [phone] Deven Clement M.D., M.S. [address] [place] [phone] 09/16/2024 1:20 PM SERVICE ELECTRICIAN Appointment Department of Laboratory Medicine and Pathology, [facility] in [place], [place] [address] [place] [phone] Deven Clement M.D., M.S. [address] [place] [phone] 09/16/2024 1:40 PM SERVICE ELECTRICIAN Ancillary Procedure Department of Cardiovascular Medicine in [place], [place] [address] [place] [phone] Deven Clement M.D., M.S. [address] [place] [phone] 09/16/2024 4:00 PM SERVICE ELECTRICIAN Comprehensive Visit Department of Cardiovascular Medicine in [place], [place] [address] [place] [address] Keagan Tellez M.D. [address] [place] [phone] documented as of this encounter Procedures Procedure [...] documented as of this encounter Care Teams Visual Aid Expert Relationship Specialty Start Date End Date Elsewhere, Pcp PCP - General Internal Medicine 07/28/24 documented as of this encounter
--- OUTSIDE RECORDS SUMMARY | 2024-09-06 15:53 | XMS_ITS | Encounter Summary ---
Author Organization [facility] Address [address] [place] [address] Care Team Providers Care Vehicle Painter Name Role Phone Elsewhere, Pcp Primary Care Provider Unavailabl e Reason for Visit * Reason Onset Date Comments Post Hospital Follow-up 09/02/2024 Encounter Details Date Type Department Care Team (Latest Contact Info) Description 09/02/2024 Clinical Communication Department of Cardiovascular Medicine in [place], [place] [address] [place] [phone] Mando Fang M.D., Ph.D. [address] [place] [phone] Post Hospital Follow-up Social History Tobacco Use Types Packs/Day Years Used Date Smoking Tobacco: Never Smokeless Tobacco: Never Comments:Smoked recreational ly over 40 years ago - a few cigarettes once in a while. Alcohol Use Standard Drinks/Week Comments Never 0 (1 standard drink = 0.6 oz pur e alcohol) [facility] Utilities Answer Date Recorded In the past 12 months has [facility] [employer], gas, oil, or water [employer] threatened to shut off services in your [...] a [facility] place to live 09/02/2024 Sex [...] AM CDT Clinical Communication Virtual Review in [place], [place] 200 [place] [phone] 09/16/2024 1:00 PM ACCOUNT SERVICES MANAGER Appointment Department of Radiology, [facility] in [place], [place] [address] [place] [phone] Deven Clement M.D., M.S. [address] [place] [phone] 09/16/2024 1:20 PM ACCOUNT SERVICES MANAGER Appointment Department of Laboratory Medicine and Pathology, [facility] in [place], [place] [address] [place] [phone] Deven Clement M.D., M.S. [address] [place] [phone] 09/16/2024 1:40 PM ACCOUNT SERVICES MANAGER Ancillary Procedure Department of Cardiovascular Medicine in [address] [phone] Deven Clement M.D., M.S. [address] [place] [phone] 09/16/2024 4:00 PM ACCOUNT SERVICES MANAGER Comprehensive Visit Department of Cardiovascular Medicine in [address] [phone] Keagan Tellez M.D. [address] [place] [phone] documented as of this encounter Visit Diagnoses Not on filedocumented in this encounter Additional Health Concerns Assessment Noted Time PHQ-9 Depression Total Score: 3 08/30/20 24 6:00 AM CDT documented as of this encounter Care Teams Vehicle Painter Relationship Specialty Start Date End Date Elsewhere, Pcp PCP - General Internal Medicine 07/28/24 documented as of this encounter
--- OUTSIDE RECORDS SUMMARY | 2024-09-06 15:53 | XMS_ITS | Encounter Summary ---
Author Organization [facility] Address [address] [place] [address] Care Team Providers Care Predictive Maintenance Technician Name Role Phone Elsewhere, Pcp Primary [...] drink = 0.6 oz pur e alcohol) [facility] Utilities Answer Date Recorded In [...] your living situation today? I have a [facility] place to live 08/27/2024 Sex [...] AM CDT Clinical Communication Virtual Review in [place], [place] [address] [place] [phone] 09/16/2024 1:00 PM PROOFER Appointment Department of Radiology, [facility], in [place], [place] [address] [place] [phone] Deven Clement M.D., M.S. [address] [place] [phone] 09/16/2024 1:20 PM PROOFER Appointment Department of Laboratory Medicine and Pathology, [facility] in [place], [place] [address] [place] [phone] Deven Clement M.D., M.S. [address] [place] [phone] 09/16/2024 1:40 PM PROOFER Ancillary Procedure Department of Cardiovascular Medicine in [place], [place] [address] [place] [phone] Deven Clement M.D., M.S. [address] [place] [phone] 09/16/2024 4:00 PM PROOFER Comprehensive Visit Department of Cardiovascular Medicine in [place], [place] [address] [place] [phone] Keagan Tellez M.D. [address] [place] [phone] documented as of this encounter Procedures Procedure [...] documented as of this encounter Care Teams Predictive Maintenance Technician Relationship Specialty Start Date End Date Elsewhere, Pcp PCP - General Internal Medicine 07/28/24 documented as of this encounter
--- OUTSIDE RECORDS SUMMARY | 2024-09-06 15:53 | XMS_ITS | Encounter Summary ---
Author Organization [facility] Address [address] [place] [address] Care Team Providers Care Handkerchief Presser Name Role Phone Elsewhere, Pcp Primary Care Provider Unavailabl e Reason for Visit * Reason Comments Leg Swelling * Auth/Cert (Routine) Specialty Diagnoses / Procedures Referred By Contac t Referred To Contact Diagnoses Edema Leg Procedures EMERGENCY Obdulio Salinas P.A.-C. [address] [place] [phone] Phone: tel: fax: Referral ID Status Reason Start Date Expiration Date Visits Re quested Visits Authorized [id number] 1 1 Encounter Details Date Type Department Care Team (Latest Contact Info) Description 08/27/2024 1:37 PM CDT - 08/31/2024 3:15 PM CDT Hospital Encounter [facility], [facility], [facility], Fifth Floor [address] [place] [phone] Obdulio Salinas P.A.-CJarrett [address] [place] [phone] Mundo Camacho M.D. [address] [place] [phone] Chet Mcduffie M.D. [address] [place] [phone] Mando Fang M.D., Ph.D. [address] [place] [address] Edema Leg (Primary Dx); Decline Functional Status [R53.81] Discharge Disposition: Home or Self Care Social History Tobacco Use Types Packs/Day Years Used Date Smoking Tobacco: Never Smokeless Tobacco: Never Comments:Smoked recreational ly over 40 years ago - a few cigarettes once in a while. Alcohol Use Standard Drinks/Week Comments Never 0 (1 standard drink = 0.6 oz pur e alcohol) [facility] Utilities Answer Date Recorded In [...] Laboratory Medicine 09/16/2024 1:40 PM ECG 01 [facility] CVD Cardiovascular Disease 09/16/2024 4:00 PM [...] Pending Labs Order Current Status Bacteria / Jaida Culture, Blood #1 Preliminary result Bacteria / Jaida Culture, Blood #2 Preliminary result CONDITION ON [...] through Care Everywhere. * Cefadroxil (By mouth) (Tamazight) documented in this encounter Medications at Time [...] 1 each 08/01/2024 2:47 PM CDT 08/01/2024 colchicine (Colcrys) 0.6 mg tablet Take 1 tablet (0.6 mg total) by mouth daily. 30 tablet 08/01/2024 08/31/20 24 lancets 2 each daily. 200 each 08/01/2024 2:47 PM CDT 08/01/2024 08/01/20 25 pantoprazole (Protonix) 40 mg EC tablet Take 1 tablet (40 mg total) by mouth daily before morning meal. 30 tablet 08/01/2024 2:47 PM CDT 08/01/2024 08/31/20 24 pen needle, diabetic (BD Ultra-Fine Short Pen Needle) 31 gauge x 5/16 needle 2 Injection daily. 100 each 08/01/2024 2:47 PM CDT 08/01/2024 08/01/20 25 documented as of this encounter Progress Notes [...] Uncertain. Plan discussed with RST CARD 2 Fabrication And Assembly Supervisor, Dr. Fang, who was present during smallwood portions of the evaluation today. Please page the [employer] 2 [place] [phone] with any questions. Chace Ruff M.D., Ph.D. [...] 74 y.o. male who was admitted to [facility] in [place] on 08/27/2024 for Edema Leg [R60.0] Precautions [...] 3-5 steps with a railing?: A Little [facility] Basic Mobility (V.2) Raw Score: 23 [facility] Basic Mobility (V.2) Standardized Score: 50.88 Interpretation: Based on scoring guidelines using the raw score value: Those going to home had an average score at or above 18 Those going to facility had an average score at or below 17 Clinicians answer the [facility] Inpatient Short Form based on observed [...] Total Treatment Time (min): 45 min EITAN Thopmson Cosigned by Fanny Delgado, P.TJarrett, D.P.T., [facility] at 08/29/2024 4:32 PM CDT Associated attestation [...] Uncertain. Plan discussed with RST C[facility] 2 Fabrication And Assembly Supervisor, Dr. aCmacho, who was present during smallwood portions of the evaluation today. Please page [place] [facility] [place] 2 [place] [phone] with any questions. Lorena Pickens MD Internal Medicine PGY-1 Pager [phone] * Mando Fang M.D., Ph.D. - 08/29/2024 [...] Dr. Pickens. * Brigitte Fritz, PharmLeonid., R.Ph., [facility] - 08/29/2024 9:26 AM CDT Pharmacist [...] Fatima MDIV - 08/28/2024 1:54 PM CDT [facility] Spiritual Care Progress Note Patient: Jong Harris Age:74 y.o. Location: [address] Reason(s) for encounter: Spiritual and psychosocial support as part of the interdisciplinary care team. Summary: I was able to meet with Jong Harris this afternoon. His , Lissy was present for support. Mr. Harris and Lissy held space for connection and introduction to Spiritual Care. They shared a bit of their truman history within the [employer] religion and feel spiritually supported. No specific or acute needs were named at this time, but they expressed gratitude for Spiritual Care check-in and affirmed to reach out through medical staff should they desire additional care. Spiritual Assessment Restoration Identification / Spiritual Practices: [employer]. Coping, support and needs: Mr. Harris is well-supported by his , Lissy and loved ones. They appreciated wellness coach presence,but named no acute or specific needs at this time. Spiritual Care Plan / Recommendations: Will remain available for spiritual care as needed or requested. Chaplains can be contacted by paging [phone] ([place]) or [phone] ([facility]). * Quentin Farris M.D. - 08/28/2024 11:14 [...] Uncertain. Plan discussed with R[facility] C[facility] 2 Fabrication And Assembly Supervisor, Dr. Camacho, who was present during smallwood portions of the evaluation today. Please page [place] [facility] 2 [place] [phone] with any questions. Quentin Farris MD Neurology PGY1 (Internal Medicine Preliminary) Pager [phone] * Jana Allen R.N., C.W.C.N. - 08/28/2024 10:49 AM CDT [facility] Wound RN consulted to assess Jong [...] Secondary Dressing Status Clean;Dry;Intact Changed by Wound physician representative Complications none Ongoing management Nursing;Wound/electrical design engineerevaluator done by [facility] RN? Yes Focused assessment completed as [...] nursing. They agree to the plan. The [facility] RN will continue to see the patient, contact or reconsult for worsening wounds or new wounds. Electronically signed by: Jana Allen R.N., C.W.C.N. 08/28/24 10:52 AM CDT * Brigitte Fritz, Pharm.D., R.Ph., [facility] - 08/28/2024 7:44 AM CDT Pharmacist [...] patient preference or insurance coverage. blood-glucose meter [facility] at Morning -- 08/01/24 -- Test as [...] Mr. Harris is a 74-year-old gentleman from [place], [place]. Records suggest a single episode of [...] ADDENDUM (2:40 PM): I spoke to Dr. Keagan Tellez, who is scheduled to see the [...] Mundo Camacho M.D. CT CT Job ID: [id number] * Samy Chaudhry Jr., M.D., M.B.A. - [...] be staffed in the morning.Please page the [employer] [place] [phone] with any questions. Electronically signed by: Samy [...] the [facility] 2 [place] [phone] with any questions. Will be staffed formally with the software sales consultant tomorrow 08/28. Quentin Farris MD Neurology PGY1 (Internal Medicine Preliminary) Pager [phone] documented in this encounter Consult Notes * [...] y.o. male who is currently hospitalized at [facility] for CHF. Dermatology is consulted to [...] care. Please page the Dermatology Service at [phone] with questions. Gilbert Welch M.D. Dermatology Resident, PGY-3 Cosigned by Obdulio Sevilla M.D. at 08/31/2024 5:15 PM CDT Associated attestation - Obdulio Sevilla M.D. - 08/31/2024 5:15 PM CDT I [...] 08/29/2024 4:10 PM CDT Infectious Diseases Consult [facility] - Supervisory Note This is a supervisory [...] IP CONSULT TO INFECTIOUS DISEASES Infectious Diseases [facility] Consulting Service CONSULT NOTE SUBJECTIVE CHIEF COMPLAINT/REASON [...] off at this time. Please page the [facility] service pager at [phone] with questions. Thank you for the consultation. Andrew Randle M.D. Cosigned by Dl Barbour M.D. at 08/29/2024 3:54 PM CDT Associated attestation - Dl Barbour M.D. - 08/29/2024 3:54 PM CDT I participated in the smallwood portions of the service. I reviewed Dr. Randle and Dr. Castillo 's note. I agree with the documented findings and plan. Dl Barbour M.D. Fabrication And Assembly Supervisor, Infectious Diseases Pager: [phone] * Cony Calzada CEP - 08/28/2024 11:56 AM CDTAssociated Order(s): IP CONSULT TO CARDIAC REHABILITATION Thank you for the cardiac rehabilitation consult, however this patient does not currently have a qualifying diagnosis. If that changes or you have any questions we can be reached Sunday - Sunday, 7:30 to 4:00pm at [phone]. To qualify for participation in a Cardiac [...] hospitalization within 6 weeks * Ramses Roca [facility] - 08/28/2024 11:52 AM CDT Physical [...] 74 y.o. male who was admitted to [facility] in [place] on 08/27/2024 for Edema Leg [R60.0]. Relevant [...] walker, Single point cane Adaptive Equipment Owned: Distributor Operator, Long Handled Shoe Horn Other DME Owned: Regular recliner, Regular flat bed Home Living Comments: Patient does not use assistive device for home ambulation. 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 Patient performs [id number] transfers and gait with supervision using front [...] - 08/28/2024 9:52 AM CDT Occupational Therapy [facility] Inpatient Evaluation/Treatment SUBJECTIVE Patient's Name: Jong Harris Referring/Attending Provider: Mundo Camacho M.D. Reason for Referral: Occupational Therapy Evaluation and Treatment PERTINENT MEDICAL / SURGICAL HISTORY: Jong Harris has a past medical history of Acidosis Lactic (09/20/2023), Acquired Aortic Valve Disorder (09/19/2023), Aphasia (04/11/2019), Atrial Fibrillation Unspecified (HCC), Basal Cell Carcinoma Skin Other Parts Face (08/19/2023), Diabetes Mellitus Type 2 ([facility] Hyperlipidemia, Hypertension NOS, Murmur Heart, Pain Shoulder Right (04/11/2019), Squamous Cell Carcinoma Skin Other Parts Face (08/19/2023), Stenosis Aortic Valve Acquired, and Stroke ([facility]). Jong Harris has a past surgical history that includes ANGIOGRAM (N/A, 08/21/2023); REPLACEMENT AORTIC VALVE (N/A, 09/19/2023); CABG X 1 - Vein (N/A, 09/19/2023); Ligation Left Atrial Appendage (N/A, 09/19/2023); Isolation Pulmonary Vein (N/A, 09/19/2023); and Echocardiogram Transesophageal (N/A,09/19/2023). History of Present Illness: Jong Harris is a 74 y.o. male who was admitted to [facility] in [place] on 08/27/2024 for Edema Leg [R60.0]. Relevant [...] walker, Single point cane Adaptive Equipment Owned: Distributor Operator, Long Handled Shoe Horn Other DME Owned: Regular recliner, Regular flat bed Prior Level of Function and Mobility: Basic Activities of Daily Living: Modified Independent: LB dressing Required Assistance: LB dressing Depends on how swollen legs are. 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 Outcome Measures: [facility] Inpatient Short Form: Putting on and [...] at or below 17 Clinicians answer the [facility] Inpatient Short Form based on observed [...] CABG x1, PVI, and DAHIANA amputation (19-SEP-2023, [place]). 3. Small left ventricular chamber size. Abnormal [...] ROOT ENLARGEMENT. (On-X Conform 23mm Valve); Surgeon: aSrah Miller M.D., M.P.H.; Location: [facility] [...] Edema Leg ? Obdulio Salinas PA-C pager: [phone] [facility] Emergency Department [address] [place] [phone] Obdulio Salinas P.A.-C. 08/27/24 [phone] * Amber [...] AM CDT Clinical Communication Virtual Review in [place], [place] 200 [place] [phone] 09/16/2024 1:00 PM REGISTERED NURSE SURGICAL SERVICES Appointment Department of Radiology, [facility] in [place], [place] [address] [place] [phone] Deven Clement M.D., M.S. [address] [place] [phone] 09/16/2024 1:20 PM REGISTERED NURSE SURGICAL SERVICES Appointment Department of Laboratory Medicine and Pathology, [facility] in [place], [place] [address] [place] [phone] Deven Clement M.D., M.S. [address] [place] [phone] 09/16/2024 1:40 PM REGISTERED NURSE SURGICAL SERVICES Ancillary Procedure Department of Cardiovascular Medicine in [place], [place] [address] [place] [phone] Deven Clement M.D., M.S. [address] [place] [phone] 09/16/2024 4:00 PM REGISTERED NURSE SURGICAL SERVICES Comprehensive Visit Department of Cardiovascular Medicine in [place], [place] [address] [place] [phone] Keagan Tellez M.D. [address] [place] [phone] documented as of this encounter Procedures Procedure [...] LAB POCT ORDERABLES-MANUAL Eliana l Result POC [facility] LAB SERVICES [address] [place] [address], [facility] PCLX [facility] POC 200 [place] [address] * (ABNORMAL) Glucose, POCT (08/31/2024 11:48 AM CDT) Pathologist [facility] Glucose, POCT, B 431(H) 70 - 140 mg/dL 08/31/2024 12:06 PM CDT PCLX Site Capillary 08/31/2024 12:06 PM CDT PCLX Blood 08/31/2024 11:4 8 AM CDT 08/31/2024 12:07 PM CDT us Unknown Provider LAB POCT ORDERABLES-MANUAL Eliana l Result POC [facility] SERVICES [address] [place] [address], [facility] P[facility]X [facility] POC 200 [place] [address] * (ABNORMAL) Basic Metabolic Panel (08/31/2024 8:35 AM CDT) [facility] Potassium, S 4.9 3.6 - 5.2 [...] BLOOD ADD-ON Final Result Performing Organization Address [facility] de Phone Number [facility] 200 [place] [address], [facility] 200 [place] [address] * (ABNORMAL) Prothrombin Time (PT) (08/31/2024 8:35 [...] ADD-ON Final Res ult Performing Organization Address [facility] Co de Phone Number [facility] 200 [place] [address], [facility] DTL [facility] 200 [place] [address] * (ABNORMAL) CBC with Differential, Blood (08/31/2024 [...] M.D., Ph.D. LAB BLOOD ADD-ON Final Result [facility] [address] [place] [address], [place] DTL [facility] [address] [place] [address] [facility] [address] [place] [address] * Glucose, POCT (08/31/2024 6:58 AM CDT) Glucose, POCT, B 125 70 - 140 mg/dL 08/31/2024 7:02 AM CDT PCLX Site Capillary 08/31/2024 7:02 AM CDT PCLX Last Intake > 4 hours 08/31/2024 7:02 AM CDT PCLX Blood 08/31/2024 6:58 AM CDT 08/31/2024 7:02 AM CDT us Unknown Provider LAB POCT ORDERABLES-MANUAL Eliana l Result Performing Organization Address City/[facility]/ZIP Co de Phone Number POC [facility] LAB SERVICES [address] [place] [address], [facility] PCLX [facility] POC [address] [place] [address] * (ABNORMAL) Glucose, POCT (08/31/2024 3:31 AM CDT) Glucose, POCT, B 155(H) 70 - 140 mg/dL 08/31/2024 3:36 AM CDT PCLX Site Capillary 08/31/2024 3:36 AM CDT PCLX Last Intake > 4 hours 08/31/2024 3:36 AM CDT PCLX Blood 08/31/2024 3:31 AM CDT 08/31/2024 3:36 AM CDT us Unknown Provider LAB POCT ORDERABLES-MANUAL Eliana l Result Performing Organization Address [facility]/ZIP Co de Phone Number POC [facility] SERVICES [address] [place] [address], [place] [facility] POC 200 [place] [address] * (ABNORMAL) Glucose, POCT (08/30/2024 9:07 PM CDT) Glucose, POCT, B 309(H) 70 - 140 mg/dL 08/30/2024 9:27 PM CDT PCLX Blood 08/30/2024 9:07 PM CDT 08/30/2024 9:28 PM CDT us Unknown Provider LAB POCT ORDERABLES-MANUAL Eliana l Result Performing Organization Address City/[facility]/ZIP Co de Phone Number POC [facility] SERVICES [address] [place] [address], [facility] PCLX [facility] POC 200 [place] [address] * (ABNORMAL) Glucose, POCT (08/30/2024 4:45 PM CDT) Glucose, POCT, B 203(H) 70 - 140 mg/dL 08/30/2024 4:49 PM CDT PCLX Site Capillary 08/30/2024 4:49 PM CDT PCLX Last Intake 3-4 hours 08/30/2024 4:49 PM CDT PCLX Blood 08/30/2024 4:45 PM CDT 08/30/2024 4:49 PM CDT us Unknown Provider LAB POCT ORDERABLES-MANUAL Eliana l Result Performing Organization Address [facility] Co de Phone Number POC [facility] SERVICES [address] [place] [address], [facility] PCLX [facility] POC [address] [place] [address] * (ABNORMAL) Glucose, POCT (08/30/2024 11:55 AM CDT) Glucose, POCT, B 250(H) 70 - 140 mg/dL 08/30/2024 12:12 PM CDT PCLX Site Capillary 08/30/2024 12:12 PM CDT PCLX Blood 08/30/2024 11:5 5 AM CDT 08/30/2024 12:12 PM CDT us Unknown Provider LAB POCT ORDERABLES-MANUAL Eliana l Result Performing Organization Address City/[facility]/ZIP Co de Phone Number POC [facility] SERVICES [address] [place] [address], [facility] PCLX [facility] POC 200 [place] [address] * (ABNORMAL) Prothrombin Time (PT) (08/30/2024 7:48 AM CDT) Prothrombin Time, P 27.1(H) 9.4 - 12.5 sec 08/30/2024 9:15 AM CDT DTL INR 2.4 0.9 - 1.1 08/30/2024 9:15 AM CDT DTL Comment: ----ADDITIONAL INFORMATION---- Standard intensity warfarin therapeutic range: 2.0 to 3.0 ?? High intensity warfarin therapeutic range: 2.5 to 3.5 Blood (Blood, Venous) 08/30/2024 7:48 AM CDT 08/30/2024 8:48 AM CDT us Mundo Camacho M.D. LAB BLOOD ADD-ON Final Res ult [address] [address], [facility] [place] [address] [place] [address] * (ABNORMAL) CBC with Differential, Blood (08/30/2024 7:48 AM CDT) Hemoglobin 13.2 13.2 - 16.6 g/dL 08/30/2024 [...] BLOOD ADD-ON Final Result Performing Organization Address City/[facility] Co de Phone Number [facility] [address] [place] [address] * (ABNORMAL) Magnesium (08/30/2024 7:48 AM CDT) Magnesium, S 2.5(H) 1.7 - 2.3 mg/dL 08/30/2024 9:17 AM CDT DTL Blood (Blood, Venous) 08/30/2024 7:48 AM CDT 08/30/2024 8:57 AM CDT us Mundo Camacho M.D. LAB BLOOD ADD-ON Final Res ult Performing Organization Address City/[facility]/ZIP Co de Phone Number [facility] 200 [place] [address] * (ABNORMAL) Basic Metabolic Panel (08/30/2024 7:48 AM CDT) Pathologist [facility] Potassium, S 4.5 3.6 - 5.2 [...] M.D. LAB BLOOD ADD-ON Final Res ult [facility] [address] [place] [address], [facility] [address] [place] [address] * (ABNORMAL) Glucose, POCT (08/30/2024 6:34 AM CDT) Glucose, POCT, B 183(H) 70 - 140 mg/dL 08/30/2024 6:41 AM CDT PCLX Site Capillary 08/30/2024 6:41 AM CDT PCLX Last Intake > 4 hours 08/30/2024 6:41 AM CDT PCLX Blood 08/30/2024 6:34 AM CDT 08/30/2024 6:41 AM CDT us Unknown Provider LAB POCT ORDERABLES-MANUAL Eliana l Result Performing Organization Address City/[facility]/ZIP Co de Phone Number POC [facility] SERVICES [address] [place] [address], [facility] PCLX [facility] POC [address] [place] [address] * (ABNORMAL) Glucose, POCT (08/29/2024 9:36 PM CDT) Glucose, POCT, B 264(H) 70 - 140 mg/dL 08/29/2024 9:43 PM CDT PCLX Site Capillary 08/29/2024 9:43 PM CDT PCLX Last Intake > 4 hours 08/29/2024 9:43 PM CDT PCLX Blood 08/29/2024 9:36 PM CDT 08/29/2024 9:44 PM CDT us Unknown Provider LAB POCT ORDERABLES-MANUAL Eliana l Result Performing Organization Address [facility] de Phone Number [facility] LAB SERVICES [address] [place] [address], [facility] PCLX [facility] POC [address] [place] [address] * Bacteria / Jaida Culture, Blood #2 (08/29/2024 5:12 PM CDT) Bacteria/Kimberlyn da Culture, Blood No growth after 5 days of incubation. 09/03/2024 6:02 PM CDT DTL Blood (Blood, Peripheral Draw) 08/29/2024 5:12 PM CDT 08/29/2024 5:41 PM CDT Comment:Specimen Source Site : Blood Narrative [facility] - 09/03/2024 6:02 PM CDT Received Bactec aerobic and Bactec anaerobic bottles us Mando Fang M.D., Ph.D. LAB MICROBIOLOGY - GEN ERAL ORDERABLES Final Result Performing Organization Address City/[facility] [address]/ZIP Co de Phone Number [facility] [address] [place] [address], [facility] 200 [place] [address] * Lactate for Sepsis with Reflex (08/29/2024 5:01 PM CDT) Lactate, P 1.7 0.5 - 2.2 mmol/L 08/29/2024 5:36 PM CDT [facility] Blood (Blood, Venous) 08/29/2024 5:01 PM CDT 08/29/2024 5:20 PM CDT Mando Fang M.D., Ph.D. LAB BLOOD NON ADD-ON F inal Result Performing Organization Address [facility] Co de Phone Number [facility] [address] [place], [place] [address] [place] [address] STMA [facility] [address] [place] [address] * Bacteria / Jaida Culture, Blood #1 (08/29/2024 5:01 PM CDT) Pathologist [facility] Bacteria/Kimberlyn da Culture, Blood No growth after 5 days of incubation. 09/03/2024 6:02 PM CDT DTL Blood (Blood, Peripheral Draw) 08/29/2024 5:01 PM CDT 08/29/2024 5:42 PM CDT Comment:Specimen Source Site : Blood Narrative [facility] - 09/03/2024 6:02 PM CDT Received Bactec aerobic and Bactec anaerobic bottles Mando Fang M.D., Ph.D. LAB MICROBIOLOGY - GEN ERAL ORDERABLES Final Result Performing Organization Address City/[facility] [address]/ZIP Co de Phone Number [facility] [address] [place] [address], [facility] [address] [place] [address] * (ABNORMAL) Glucose, POCT (08/29/2024 4:37 PM CDT) Glucose, POCT, B 146(H) 70 - 140 mg/dL 08/29/2024 4:41 PM CDT PCLX Site Capillary 08/29/2024 4:41 PM CDT PCLX Blood 08/29/2024 4:37 PM CDT 08/29/2024 4:41 PM CDT us Unknown Provider LAB POCT ORDERABLES-MANUAL Eliana l Result POC [facility] [address] [place] [address], [facility] PCLX [facility] [place] POC [address] [place] [address] * (TTE) 2D ECHO DOPPLER COLOR (08/29/2024 [...] CABG x1, PVI, and DAHIANA amputation (19-SEP-2023, [place]). Echocardiogram performed per left ventricular function protocol [...] prosthesis, CABG x1, PVI,and DAHIANA amputation (19-SEP-2023, [place]). Echocardiogram performed per leftventricular function protocol + [...] (ABNORMAL) Glucose, POCT (08/29/2024 11:26 AM CDT) Glucose, POCT, B 236(H) 70 - 140 mg/dL 08/29/2024 11:40 AM CDT PCLX Site Capillary 08/29/2024 11:40 AM CDT PCLX Blood 08/29/2024 11:2 6 AM CDT 08/29/2024 11:40 AM CDT Unknown Provider LAB POCT ORDERABLES-MANUAL Eliana l Result Performing Organization Address [facility] Co de Phone Number [facility] [address] PCLX [facility] [address] [place] [address] * (ABNORMAL) Prothrombin Time (PT) (08/29/2024 8:12 AM CDT) Prothrombin Time, P 29.9(H) 9.4 - 12.5 [...] ADD-ON Final Res ult Performing Organization Address [facility] [address]/ZIP Co de Phone Number [facility] [address] DTL [facility] 200 [place] [address] * (ABNORMAL) Magnesium (08/29/2024 8:12 AM CDT) Magnesium, P 2.4(H) 1.7 - 2.3 mg/dL 08/29/2024 8:35 AM CDT STMA Blood (Blood, Venous) 08/29/2024 8:12 AM CDT 08/29/2024 8:19 AM CDT Mundo Camacho M.D. LAB BLOOD ADD-ON Final Res ult [facility] [address] [place] [address], [facility] [address] [place] [address] * (ABNORMAL) Basic Metabolic Panel (08/29/2024 8:12 [...] ADD-ON Final Res ult Performing Organization Address City/[facility] [address]/ZIP Co de Phone Number [facility] [address] [place], [place] [id number] [place] [address] DTL [facility] [address] [place] [address] * (ABNORMAL) CBC without Differential (08/29/2024 8:12 AM CDT) Pathologist [facility] Hemoglobin 13.2 13.2 - 16.6 g/dL 08/29/2024 [...] ADD-ON Final Res ult Performing Organization Address City/[facility] [address]/ZIP Co de Phone Number [facility] [address] [place] [address], [facility] DTL [facility] [address] [place] [address] * (ABNORMAL) Glucose, POCT (08/29/2024 6:51 AM CDT) Glucose, POCT, B 151(H) 70 - 140 mg/dL 08/29/2024 7:03 AM CDT PCLX Site Capillary 08/29/2024 7:03 AM CDT PCLX Last Intake 3-4 hours 08/29/2024 7:03 AM CDT PCLX Blood 08/29/2024 6:51 AM CDT 08/29/2024 7:03 AM CDT us Unknown Provider LAB POCT ORDERABLES-MANUAL Eliana l Result Performing Organization Address City/[facility] [address]/ZIP Co de Phone Number [facility] 200 [place] [address], [facility] PCLX [facility] POC 200 [place] [address] * (ABNORMAL) Glucose, POCT (08/28/2024 9:42 PM CDT) Glucose, POCT, B 290(H) 70 - 140 mg/dL 08/28/2024 10:13 PM CDT PCLX Blood 08/28/2024 9:42 PM CDT 08/28/2024 10:14 PM CDT us Unknown Provider LAB POCT ORDERABLES-MANUAL Eliana l Result Performing Organization Address City/[facility]/ZIP Co de Phone Number [facility] [address] [place] [address], [facility] PCLX [facility] POC 200 [place] [address] * (ABNORMAL) Glucose, POCT (08/28/2024 4:44 PM CDT) Glucose, POCT, B 203(H) 70 - 140 mg/dL 08/28/2024 4:51 PM CDT PCLX Site Capillary 08/28/2024 4:51 PM CDT PCLX Blood 08/28/2024 4:44 PM CDT 08/28/2024 4:51 PM CDT us Unknown Provider LAB POCT ORDERABLES-MANUAL Eliana l Result Performing Organization Address [facility] [address]/ZIP Co de Phone Number [facility] [address] [place] [address], [facility] PCLX [facility] POC [address] [place] [address] * (ABNORMAL) Glucose, POCT (08/28/2024 11:48 AM CDT) Glucose, POCT, B 147(H) 70 - 140 mg/dL 08/28/2024 11:53 AM CDT PCLX Blood 08/28/2024 11:4 8 AM CDT 08/28/2024 11:53 AM CDT us Unknown Provider LAB POCT ORDERABLES-MANUAL Eliana l Result Performing Organization Address [facility] [address]/[facility] Co de Phone Number [facility] [address] [place] [address], [facility] PCLX [facility] POC 200 [place] [address] * CRP (C-Reactive Protein) (08/28/2024 7:32 AM CDT) C-Reactive Protein (CRP), S <3.0 <5.0 mg/L 08/28/2024 8:37 AM CDT DTL Blood (Blood, Venous) 08/28/2024 7:32 AM CDT 08/28/2024 8:20 AM CDT Mundo Camacho M.D. LAB BLOOD ADD-ON Final Res ult Performing Organization Address City/[facility]/ZIP Co de Phone Number [facility] 200 [place] [address], [facility] 200 [place] [address] * (ABNORMAL) Magnesium (08/28/2024 7:32 AM CDT) Magnesium, S 2.5(H) 1.7 - 2.3 mg/dL 08/28/2024 8:37 AM CDT DTL Blood (Blood, Venous) 08/28/2024 7:32 AM CDT 08/28/2024 8:20 AM CDT Mundo Camacho M.D. LAB BLOOD ADD-ON Final Res ult [facility] [address] [place] [address], [facility] DTL [facility] [address] [place] [address] * (ABNORMAL) Basic Metabolic Panel (08/28/2024 7:32 [...] ADD-ON Final Res ult Performing Organization Address [facility] [address]/[facility] Co de Phone Number [facility] [address] [place] [address], [facility] [address] [place] [address] * (ABNORMAL) CBC without Differential (08/28/2024 7:32 AM CDT) Hemoglobin 12.8(L) 13.2 - 16.6 g/dL 08/28/2024 [...] ADD-ON Final Res ult Performing Organization Address [facility] Co de Phone Number [facility] [address] [place] [address], [facility] 200 [place] [address] * (ABNORMAL) Prothrombin Time (PT) (08/28/2024 7:32 [...] ADD-ON Final Res ult Performing Organization Address City/[facility] Co de Phone Number [facility] [address] [place] [address], [facility] 200 [place] [address] * Glucose, POCT (08/28/2024 7:09 AM CDT) Glucose, POCT, B 115 70 - 140 mg/dL 08/28/2024 7:11 AM CDT PCLX Site Capillary 08/28/2024 7:11 AM CDT PCLX Last Intake > 4 hours 08/28/2024 7:11 AM CDT PCLX Blood 08/28/2024 7:09 AM CDT 08/28/2024 7:12 AM CDT Unknown Provider LAB POCT ORDERABLES-MANUAL Eliana l Result Performing Organization Address [facility] Co de Phone Number POC [facility] [address] [place] [address], [facility] PCLX [facility] POC 200 [place] [address] * (ABNORMAL) Glucose, POCT (08/27/2024 11:13 PM CDT) Glucose, POCT, B 343(H) 70 - 140 mg/dL 08/27/2024 11:16 PM CDT PCLX Site Capillary 08/27/2024 11:16 PM CDT PCLX Last Intake > 4 hours 08/27/2024 11:16 PM CDT PCLX Blood 08/27/2024 11:1 3 PM CDT 08/27/2024 11:16 PM CDT us Unknown Provider LAB POCT ORDERABLES-MANUAL Eliana l Result Performing Organization Address City/[facility] [address]/ZIP Co de Phone Number [facility] SERVICES [address] [place] [address], [facility] PCLX [facility] POC [address] [place] [address] * Lactate (08/27/2024 6:30 PM CDT) Pathologist [facility] Lactate, P 1.2 0.5 - 2.2 mmol/L 08/27/2024 6:52 PM CDT STMA Blood 08/27/2024 6:30 PM CDT 08/27/2024 6:36 PM CDT us Obdulio Salinas P.A.-C. LAB BLOOD NON ADD-ON Final Result Performing Organization Address [facility] Co de Phone Number [facility] [address] [place] [address], [facility] STMA [facility] [address] [place] [address] * (ABNORMAL) Glucose, POCT (08/27/2024 6:29 PM CDT) [facility] Glucose, POCT, B 201(H) 70 - 140 mg/dL 08/27/2024 6:31 PM CDT PCLX Site Capillary 08/27/2024 6:31 PM CDT PCLX Last Intake > 4 hours 08/27/2024 6:31 PM CDT PCLX Blood 08/27/2024 6:29 PM CDT 08/27/2024 6:31 PM CDT us Unknown Provider LAB POCT ORDERABLES-MANUAL Eliana l Result Performing Organization Address City/[facility]/ZIP Co de Phone Number [facility] [address] [place] [address], [facility] PCLX [facility] POC [address] [place] [address] * (ABNORMAL) NT-Pro B-Type Natriuretic Peptide (BNP) (08/27/2024 2:59 PM CDT) NT-Pro BNP 5662(H) <=540 pg/mL 08/27/2024 3:35 PM CDT [facility]: NT-proBNP values less than 300 [...] P.A.-C. LAB BLOOD ADD-[place] [address], [place] [address] * (ABNORMAL) Prothrombin Time (PT) (08/27/2024 2:59 PM CDT) Pathologist [facility] Prothrombin Time, P 34.6(H) 9.4 - 12.5 sec 08/27/2024 3:15 PM CDT [facility] INR 3.1 0.9 - 1.1 08/27/2024 3:15 PM CDT [facility] Comment: ----ADDITIONAL INFORMATION---- Standard intensity warfarin therapeutic range: 2.0 to 3.0 ?? High intensity warfarin therapeutic range: 2.5 to 3.5 Blood (Blood, Venous) 08/27/2024 2:59 PM CDT 08/27/2024 3:05 PM CDT Obdulio LongoriaC. LAB BLOOD ADD-ON Final Res ult [facility] [address] [place] [address], [facility] STMA [facility] [address] [place] [address] * (ABNORMAL) Lactate for Sepsis with Reflex (08/27/2024 2:59 PM CDT) [facility] Lactate, P 2.6(H) 0.5 - 2.2 mmol/L 08/27/2024 3:24 PM CDT STMA Blood (Blood, Venous) 08/27/2024 2:59 PM CDT 08/27/2024 3:05 PM CDT us Odbulio Salinas P.A.-C. LAB BLOOD NON ADD-ON Final Result [facility] [address] [place] [address], [facility] STMA [facility] [address] [place] [address] * (ABNORMAL) Basic Metabolic Panel (08/27/2024 2:59 PM CDT) [facility] Potassium, P 4.7 3.6 - 5.2 [...] P.A.-C. LAB BLOOD ADD-ON Final Res ult [facility] [address] [place] [address], [facility] [address] [place] [address] * (ABNORMAL) CBC with Differential, Blood (08/27/2024 [...] P.A.-C. LAB BLOOD ADD-ON Final Res ult [facility] [address] [place] [address], [place] STMA [facility] [address] [place] [address] DHPM [facility] [address] [place] [address] * DX Chest AP or PA and [...] CDT) Ventricular Rate ECG/Min 60 BPM MUSE HI Interval 134 ms MUSE QRSD Interval 76 ms MUSE QT Interval 426 ms MUSE QTC Interval 426 ms MUSE P [place] 28 degrees MUSE R [place] 70 degrees MUSE T Wave [place] 98 degrees MUSE 08/27/2024 2:18 PM CDT [...] 0.6 mg, oral, Daily, First dose on [place] 08/28/24 at 0900, For 4 days Given 08/31/2024 9:12 AM CDT 0.6 mg Given 08/30/2024 9:25 AM CDT 0.6 mg Given 08/29/2024 9:02 AM CDT 0.6 mg cyanocobalamin tablet 2,000 mcg (Vitamin B-12) 2,000 mcg, oral, Daily, First dose on Carissa 08/28/24 at 0900 Given 08/31/2024 9:15 AM CDT 2,000 mcg Given 08/30/2024 9:24 AM CDT 2,000 mcg Given 08/29/2024 9:02 AM CDT 2,000 mcg finasteride tablet 5 mg (Proscar) 5 mg, oral, Daily, First dose on [place] 08/28/24 at 0900, See tube feeding guidelines for [...] mg (Lasix) 20 mg, intravenous, Once, On [place] 08/28/24 at 0400, For 1 dose, Adults: Doses less than 120 mg: IV push over 20 mg/minute. Doses 120 mg or greater: IVPB at 4 mg/minute. Peds/Neonates: Doses less than 120 mg over 0.5 mg/kg/minute. Doses 120 mg or greater: IVPB at 4 mg/minute. Given 08/28/2024 6:00 AM CDT 20 mg furosemide injection 40 mg (Lasix) 40 mg, intravenous, Once, On [facility] 08/27/24 at 1530, For 1 dose, Adults: Doses less than 120 mg: IV push over 20 mg/minute. Doses 120 mg or greater: IVPB at 4 mg/minute. Peds/Neonates: Doses less than 120 mg over 0.5 mg/kg/minute. Doses 120 mg or greater: IVPB at 4 mg/minute. Given 08/27/2024 3:52 PM CDT 40 mg furosemide injection 40 mg (Lasix) 40 mg, intravenous, Once, On [facility] 08/27/24 at 1915, For 1 dose, Adults: Doses [...] daily, First dose (after last reorder) on Carissa 08/28/24 at 1030, Adults: Doses less than 120 mg: IV push over 20 mg/minute. Doses 120 mg or greater: IVPB at 4 mg/minute. Peds/Neonates: Doses less than 120 mg over 0.5 mg/kg/minute. Doses 120 mg or greater: IVPB at 4 mg/minute. Given 08/28/2024 11:45 AM CDT 40 mg furosemide injection 80 mg (Lasix) 80 mg, intravenous, Once, On [facility] 08/28/24 at 1515, For 1 dose, Adults: [...] mg (Dilaudid) 0.2 mg, intravenous, Once, On Sun08/28/24 at 0400, For 1 dose Given 08/28/2024 [...] As needed, reversal, respiratory depression, Starting on Sun08/28/[address] tablet 40 mg [...] oral, 2 times daily, First dose on 08/31/24 at 0930 Given 08/31/2024 9:29 AM CDT 60 mg warfarin tablet 1 mg (Jantoven) 1 mg, oral, Once, On 08/27/24 at 1945, For 1 dose, HAZARDOUS - Handle with care. Swallow whole. Do NOT chew or split tablet. May crush using the RxCrush system. Given 08/27/2024 9:25 PM CDT 1 mg warfarin tablet 1.5 mg (Jantoven) 1.5 mg, oral, Once, On [place]issa 08/28/24 at 1700, For 1 dose, HAZARDOUS - Handle with care. Swallow whole. Do NOT chew or split tablet. May crush using the RxCrush system. Given 08/28/2024 4:59 PM CDT 1.5 mg warfarin tablet 2 mg (Jantoven) 2 mg, oral, Once, On 08/29/24 at 1700, For 1 dose, HAZARDOUS - [...] May crush using the RxCrush system. Given 08/30/2024 5:01 PM CDT 2 mg documented in this encounter Active and Recently Administered Medications Times are shown in CDT. Scheduled Medication Order 08/29/2024 08/30/2024 08/31/2024 aspirin chewable tablet 81 mg 81 mg, oral, Daily, First dose on Carissa 08/28/24 at 0900 0902 (Given - Provider: Nola Mcintosh R.N.) 0924 (Given - Provider: Felipe CarvalhoN.) 0915 (Given - Provider: Kwesi Thayer R.N.) [...] factors., Indications: Skin and soft tissue infection 1716 (Given - Provider: Chelsea Veras R.N. - Comment: waiting for ) 311 (Given - Provider: Adriana Lou R.N.) cholecalciferol (vitamin D3) tablet 25 mcg 25 mcg, oral, Daily, First dose on Sun08/28/24 at 0900, cholecalciferol (vitamin D3) orderable was interchanged for cholecalciferol (vitamin D3) tablet/capsule 901 (Given - Provider: Nola Mcintosh R.N.) 09 (Given - Provider: Kwesi Thayer R.N.) 09 (Given - Provider: Kwesi Thayer R.N.) colchicine tablet 0.6 mg (Colcrys) (COMPLETED) 0.6 mg, oral, Daily, First dose on Sun08/28/24 at 0900, For 4 days 09 (Given - Provider: Nola Mcintosh R.N.) 0925 (Given - Provider: Kwesi Thayer R.N.) 09 (Given - Provider: Kwesi Thayer R.N.) cyanocobalamin tablet 2,000 mcg (Vitamin B-12) 2,000 mcg, oral, Daily, First dose on Sun08/28/24 at 0900 0902 (Given - Provider: Nola Mcintosh R.N.) 0924 (Given - Provider: Kwesi Thayer R.N.) 0915 (Given - Provider: Kwesi Thayer R.N.) finasteride tablet 5 mg (Proscar) 5 mg, oral, Daily, First dose on Sun08/28/24 at 0900, See tube feeding guidelines for tube feeding administration instructions. 0902 (Given - Provider: Nola Mcintosh R.N.) 0925 (Given - Provider: Kwesi Thayer R.N.) 0915 (Given - Provider: Kwesi Thayer R.N.) furosemide injection 100 mg (Lasix) (COMPLETED) 100 mg, intravenous, Once, On Sun08/29/24 at 0845, For 1 dose, Adults: Doses less than 120 mg: IV push over 20 mg/minute. Doses 120 mg or greater: IVPB at 4 mg/minute. Peds/Neonates: Doses less than 120 mg over 0.5 mg/kg/minute. Doses 120 mg or greater: IVPB at 4 mg/minute. 09 (Given - Provider: Nola Mcintosh R.N.) furosemide [...] Veras R.N.)1646 (Given - Provider: Mary Enriquez R.N.) 0659 (Not Given - Provider: Adriana Lou R.N. - Reason: Order parameters not met)1153 (Given - Provider: Chelsea Veras R.N. - Comment: 397) insulin aspart U-100 injection 5 Units (NovoLOG FlexPen) (COMPLETED) 5 Units, subcutaneous, Once, On Sun08/30/24 at 2200, For 1 dose 2216 (Given - Provider: Sharath Krishna R.N.) insulin NPH injection 15 Units 15 Units, subcutaneous, Every morning, First dose on Sun08/28/24 at 0900 0903 (Given - Provider: Nola Mcintosh R.N.) 0925 (Given - Provider: Kwesi Thayer R.N.) 0915 (Given - Provider: Kwesi Thayer R.N.) insulin NPH injection 5 Units 5 Units, subcutaneous, Daily at bedtime, First dose on Sun08/27/24 at 2100 2136 (Given - Provider: Adriana Lou R.N.) 2024 (Given - Provider: Sharath Krishna R.N.) metoprolol succinate 24 hr tablet 50 mg (Toprol XL) 50 mg, oral, Daily, First dose on Sun08/28/24 at 0900, Do NOT crush or chew. Tablet may be split on score if needed. 0902 (Given - Provider: Nola Mcintosh R.N.) [...] Provider: Kwesi Thayer R.N.)1248 (Given - Provider: Felipe JonesNJarrett)2024 (Given - Provider: Sharath Krishna R.N.) 0622 [...] R.N.)2025 (Given - Provider: Sharath Krishna R.N.) 0923 (Given - Provider: Kwesi Thayer R.N.) sulfamethoxazole-trimetho [...] oral, 2 times daily, First dose on 08/31/24 at 0930 0929 (Given - Provider: Kwesi [...] (Jantoven) (COMPLETED) 2 mg, oral, Once, On 08/29/24 at 1700, For 1 dose, HAZARDOUS - Handle with care. Swallow whole. Do NOT chew or split tablet. May crush using the RxCrush system. 171 (Given - Provider: Chelsea Veras RSammi) warfarin tablet 2 mg (Jantoven) (COMPLETED) 2 mg, oral, Once, On Sun08/30/24 at 1700, For 1 dose, HAZARDOUS - Handle with care. Swallow whole. Do NOT chew or split tablet. May crush using the RxCrush system. 170 (Given - Provider: Chelsea Veras R.N.) PRN Medication Order 08/29/2024 08/30/2024 08/31/2024 acetaminophen tablet 1,000 mg (TylenoL) 1,000 mg, oral, Every 6 hours PRN, mild pain or score 1-3 of 10, moderate pain or score 4-6 of 10, severe pain or score 7-10 of 10, headaches, fever, Starting on Sun08/27/24 at 1751 0902 (Given - Provider: Felipe LeijaNJarrett)202 (Given - Provider: Adriana Lou RJarrettN.) 0321 (Given - Provider: Adriana Lou R.N.)0939 (Given - Provider: Chelsea Veras RJarrettN.) 0040 (Given - Provider: Felipe RileyN.)0912 (Given - Provider: Kwesi Thayer RJarrettN.) naloxone injection 0.4 mg (Narcan) 0.4 mg, intravenous, As needed, reversal, respiratory depression, Starting on Carissa 08/28/24 at 0338 sodium chloride 0.9 % injection 10 mL 10 mL, intravenous, As needed, line care, Starting on 08/27/24 at 1751, Peripheral Intravenous Catheter and Rapid [...] documented as of this encounter Care Teams Handkerchief Presser Relationship Specialty Start Date End Date Elsewhere, Pcp PCP - General Internal Medicine 07/28/24 documented as of this encounter
--- OUTSIDE RECORDS SUMMARY | 2024-09-06 15:53 | XMS_ITS | Encounter Summary ---
Author Organization [facility] Address [address] [place] [address] Care Team Providers Care Senior Investigator Name Role Phone Elsewhere, Pcp Primary Care Provider Unavailabl e Reason for Visit * Reason Onset Date Comments Dose Adjustment 08/05/2024 Encounter Details Date Type Department Care Team (Latest Contact Info) Description 08/05/2024 Clinical Communication Division of Endocrinology in [place], [place] [address] [place] [address] Lola Payan R.N. [address] [place] [address] Dose Adjustment Social History Tobacco Use Types [...] Recorded In the past 12 months has [facility] [employer], gas, oil, or water [employer] threatened to shut off services in your [...] have [facility] live 07/25/2024 Sex and [...] AM CDT Clinical Communication Virtual Review in [place], [place] [address] [place] [address] 09/16/2024 1:00 PM BUFFERER Appointment Department of Radiology, [facility], in [address] [phone] Deven Clement M.D., M.S. [address] [place] [phone] 09/16/2024 1:20 PM BUFFERER Appointment Department of Laboratory Medicine and Pathology, [facility] in [place], [place] [address] [place] [phone] Deven Clement M.D., M.S. [address] [place] [phone] 09/16/2024 1:40 PM BUFFERER Ancillary Procedure Department of Cardiovascular Medicine in [place], [place] [address] [place] [phone] Deven Clement M.D., M.S. [address] [place] [phone] 09/16/2024 4:00 PM BUFFERER Comprehensive Visit Department of Cardiovascular Medicine in [place], [place] [address] [place] [phone] Keagan Tellez M.D. [address] [place] [phone] documented as of this encounter Visit Diagnoses Not on filedocumented in this encounter Additional Health Concerns Assessment Noted Time PHQ-9 Depression Total Score: 1 09/10/20 23 2:06 PM CDT documented as of this encounter Care Teams Senior Investigator Relationship Specialty Start Date End Date Elsewhere, Pcp PCP - General Internal Medicine 07/28/24 documented as of this encounter
--- OUTSIDE RECORDS SUMMARY | 2024-09-06 15:54 | XMS_ITS | Encounter Summary ---
Author Organization [facility] Address [address] [place] [address] Care Team Providers Care World History Teacher Name Role Phone Elsewhere, Pcp Primary [...] = 0.6 oz pur e alcohol) [facility] Utilities Answer Date Recorded In [...] AM CDT Clinical Communication Virtual Review in [place], [place] [address] [place] [address] 09/16/2024 1:00 PM WASHER ENGINEER HELPER Appointment Department of Radiology, [facility], in [place], [place] [address] [place] [address] Deven Clement M.D., M.S. [address] [place] [phone] 09/16/2024 1:20 PM WASHER ENGINEER HELPER Appointment Department of Laboratory Medicine and Pathology, [facility] in [place], [place] [address] [place] [phone] Deven Clement M.D., M.S. [address] [place] [phone] 09/16/2024 1:40 PM WASHER ENGINEER HELPER Ancillary Procedure Department of Cardiovascular Medicine in [place], [place] [address] [place] [phone] Deven Clement M.D., M.S. [address] [place] [phone] 09/16/2024 4:00 PM WASHER ENGINEER HELPER Comprehensive Visit Department of Cardiovascular Medicine in [place], [place] [address] [place] [phone] Keagan Tellez M.D. [address] [place] [phone] documented as of this encounter Procedures Procedure [...] documented as of this encounter Care Teams World History Teacher Relationship Specialty Start Date End Date Elsewhere, Pcp PCP - General Internal Medicine 07/28/24 documented as of this encounter
--- OUTSIDE RECORDS SUMMARY | 2024-09-06 15:54 | XMS_ITS | Encounter Summary ---
Author Organization [facility] Address [address] [place] [address] Care Team Providers Care Labor Custodian Name Role Phone Elsewhere, Pcp Primary Care Provider Unavailabl e Reason for Visit * Reason Comments Leg Swelling * Auth/Cert (Routine) Specialty Diagnoses / Procedures Referred By Contac t Referred To Contact Diagnoses Edema Leg Procedures OBS TO INPT Referral ID Status Reason Start Date Expiration Date Visits Re quested Visits Authorized [id number] 1 1 Encounter Details Date Type Department Care Team (Latest Contact Info) Description 07/24/2024 4:49 PM CDT - 08/01/2024 2:08 PM CDT Hospital Encounter [facility], [facility], [facility], Fourth Floor [address] [place] [phone] Fanny Goodwin M.D., M.S. [address] [place] [phone] Haily Campbell APRN, C.N.P., D.N.P. [address] [place] [phone] Josee Devlin P.A.-C., M.S. [address] [place] [phone] Yasmine Garduno M.D., Ph.D. [address] [place] [phone] Deven Clement M.D., M.S. [address] [place] [phone] Shameka Feldman M.D. 200 [place] [phone] Fanny Zelaya M.D. [address] Edema Leg (Primary Dx); Shortness Of [...] drink = 0.6 oz pur e alcohol) [facility] Utilities Answer Date Recorded In the past 12 months has e [employer], gas, oil, or water [employer] threatened to shut off services in your [...] [facility] to live 07/25/2024 Sex and [...] 01 Admitting/Central Scheduling 10/02/2024 10:00 AM ECG [facility] CVD Cardiovascular Disease 10/02/2024 10:45 AM [...] May. ED Course Mr Harris presented to [place] ED on 07/24/24 with complaints of progressive [...] call the Diabetes Consulting Service at (pager [phone]) from 7:30 AM to 9:00 AM for [...] management, yearly follow up with a local Oil Analyst and Dietitian is recommended. Please check with your insurance company as diabetes education visits are commonly covered. Your primary care provider can provide referrals for education. * Attachments The following attachments cannot be sent through Care Everywhere. * Insulin NPH (By injection) ([place]ese) * Pantoprazole (By mouth) ([place]) * Prednisone (By mouth) ([place]) * Sulfamethoxazole/Trimethoprim (By mouth) ([place]) documented in this encounter Medications at Time [...] 08/01/2024 2:47 PM CDT 08/01/2024 08/01/20 25 acetaminophen (TYLENOL) 500 mg tablet Take 1,000 mg by mouth every 6 (six) hours as needed for pain. 08/27/20 24 insulin NPH (NovoLIN N FlexPen) 100 unit/mL [...] or chew. 90 tablet 3 01/01/2024 08/27/20 sulfamethoxazol e-trimethoprim (Bactrim) 400-80 mg per tabletIndicatio ns:Prophylaxis, medical Take 1 tablet by mouth daily for 28 doses Indications: Prophylaxis, medical. 28 tablet 08/01/2024 2:47 PM CDT 08/02/2024 08/31/20 torsemide (Demadex) 20 mg tablet Take 1 tablet (20 mg total) by mouth daily. 30 tablet 08/01/2024 08/31/20 documented as of this encounter Progress Notes * Jana Holcomb R.N., C.W.O.C.N. - 08/01/2024 11:12 AM CDT [facility] Wound RN reconsulted to assess Jong Nieto [...] None *Signs of Infection None *Wound Bed [place];Open Tissue Exposed None Odor None *Exudate Amount [...] Secondary Dressing Status Clean;Dry;Intact Changed by Wound press operator automatic Ongoing management Nursing;Patient/caregiver [REMOVED] Wound 07/28/24 Neuropathic [...] AM CDT Page Me Weekend Pager is [phone] (available Saturdays-1530) * Hyacinth Tavares, PharmJarrettD., R.Ph., [facility] - 08/01/2024 7:34 AM CDT Pharmacist [...] of steroids - DCS consulted - Holding COMPUTER INFORMATION SYSTEMS PROFESSOR Glipizide - Moderate CS TID - NPH 10 units AM and 6 unit in PM - 1:10 ICR Aspart with meals TID #Paroxyasmal AF - Continue COMPUTER INFORMATION SYSTEMS PROFESSOR Warfarin #BPH - Continue COMPUTER INFORMATION SYSTEMS PROFESSOR Tamsulosin + Finasteride #Stroke #HTN #HLD VTE: N/A due to therapeutic anti-coagulation Code Status: Full Code Disposition: Uncertain Plan discussed with RST CARD 2 Photo Manager, Deven Olmedo M.D., who was present [...] the ultrasound. Prior chest x-ray has shown [id number] left pleural effusion. CRP at admission is [...] 2 weeks * Zunilda Kennedy, Pharm.D., R.Ph., [facility] - 07/31/2024 9:39 AM CDT Warfarin Warfarin [...] of steroids - DCS consulted - Holding COMPUTER INFORMATION SYSTEMS PROFESSOR Glipizide - Moderate CS TID - NPH 10 units AM and 6 unit in PM - 1:10 ICR Aspart with meals TID #Paroxyasmal AF - Continue COMPUTER INFORMATION SYSTEMS PROFESSOR Warfarin #BPH - Continue COMPUTER INFORMATION SYSTEMS PROFESSOR Tamsulosin + Finasteride #Stroke #HTN #HLD VTE: N/A due to therapeutic anti-coagulation Code Status: Full Code Disposition: Uncertain Plan discussed with RST CARD 2 Photo Manager, Deven Olmedo M.D., who was present [...] insulin twice daily in the setting of intermediate steroids. Once patient is off of steroids he can likely stop insulin and resume Glipizide. Blood Glucose Frequency: twice daily Goal: 120-180 mg/dL, higher goal due to comorbidities Final DCS recommendations and prescriptions updated for dismissal. Discussed above plan with the patient. Patient is alert and oriented and in agreement with the plan. DCS pager [phone] will continue to follow. Call primary service for diabetes concerns between 6:30 p.m. and 6:30 a.m. Primary service to contact community relations liaison Endocrinology fellow via hospital office machine embossograph operator for questions. * Zunilda Kennedy, Pharm.D., R.Ph., [facility] - 07/30/2024 9:21 AM CDT Pharmacist Progress [...] of steroids - DCS consulted - Holding COMPUTER INFORMATION SYSTEMS PROFESSOR Glipizide - Moderate CS TID - NPH 10 units BID #Paroxyasmal AF - Continue COMPUTER INFORMATION SYSTEMS PROFESSOR Warfarin #BPH - Continue COMPUTER INFORMATION SYSTEMS PROFESSOR Tamsulosin + Finasteride #Stroke #HTN #HLD VTE: N/A due to therapeutic anti-coagulation Code Status: Full Code Disposition: Uncertain Plan discussed with RST CARD 2 Photo Manager, Yasmine Cloud M.D., who was present [...] patient to review AVS for final recommendations. clinical unit educator number provided for outpatient follow-up. REFERENCES: Medications: Insulin ([id number]) Using an insulin pen ([id number]) Diabetes Record Sheet ([id number]) Hypoglycemia ([id number]) Hyperglycemia ([id number]) * Jack Mcclendon, Pharm.D., R.Ph., BCPS, M.B.A. [...] about patient's nutritional care please contact pager [phone] on weekdays or [phone] on weekends/holidays. * Yasmine Garduno M.D., Ph.D. [...] R.N., C.W.O.C.N. - 07/28/2024 11:35 AM CDT [facility] Wound RN reconsulted to assess Jong D [...] None *Signs of Infection None *Wound Bed Open;Brown;[place] Tissue Exposed None Odor Mild *Exudate Amount Scant Drainage Description Serosanguineous Gauri-wound Assessment Fragile Treatments Cleansed Periwound Treatment Cleansed (Comment) Wound Cleansed with Cleansing wipes *Primary Dressing Gelling fiber/Hydrofiber ([employer]) *Primary Dressing Frequency of Change Daily & PRN Primary Dressing Changed New Primary Dressing Status Clean;Dry;Intact Changed by Wound press operator automatic Ongoing management Nursing;Wound/licensed veterinary technician Focused assessment completed as other wounds were [...] R.N., LiliyaCSammi 07/28/24 1:15 PM CDT Page Ak Weekend Pager is [phone] (available Saturdays-1530) * Barbara Valencia M.B., B.Ch. [...] Problems: #T2DM c/b peripheral neuropathy - Holding COMPUTER INFORMATION SYSTEMS PROFESSOR Glipizide - Moderate CS Insulin #Paroxyasmal AF - Continue COMPUTER INFORMATION SYSTEMS PROFESSOR Warfarin #BPH - Continue COMPUTER INFORMATION SYSTEMS PROFESSOR Tamsulosin + Finasteride #Stroke #HTN #HLD VTE: N/A due to therapeutic anti-coagulation Code Status: Full Code Disposition: Uncertain Plan discussed with RST CARD 2 Photo Manager, Yasmine Cloud M.D., who was present during [place] portions of the evaluation today. Misty Webb, B.Ch. * Zunilda Kennedy Pharm.D., R.Ph., [facility] - 07/28/2024 8:10 AM CDT Pharmacist Progress [...] Problems: #T2DM c/b peripheral neuropathy - Holding COMPUTER INFORMATION SYSTEMS PROFESSOR Glipizide - Moderate CS Insulin #Paroxyasmal AF - Continue COMPUTER INFORMATION SYSTEMS PROFESSOR Warfarin #BPH - Continue COMPUTER INFORMATION SYSTEMS PROFESSOR Tamsulosin + Finasteride #Stroke #HTN #HLD VTE: N/A due to therapeutic anti-coagulation Code Status: Full Code Disposition: Uncertain Plan discussed with RST CARD 2 Photo Manager, Yasmine Cloud M.D., who was present [...] Problems: #T2DM c/b peripheral neuropathy - Holding COMPUTER INFORMATION SYSTEMS PROFESSOR Glipizide - Moderate CS Insulin #Paroxyasmal AF - Continue COMPUTER INFORMATION SYSTEMS PROFESSOR Warfarin #BPH - Continue COMPUTER INFORMATION SYSTEMS PROFESSOR Tamsulosin + Finasteride #CKD IIIB #Stroke #HTN #HLD VTE: N/A due to therapeutic anti-coagulation Code Status: Full Code Disposition: Uncertain Plan discussed with RST CARD 2 Photo Manager, Yasmine Cloud M.D., who was present [...] Complete Set By: Palomo Varma, Pharm.DJarrett, R.Ph., [facility] at :42 PM Taking? Last Dose Informant [...] R.N., C.W.C.N. - 07/25/2024 1:42 PM CDT [facility] Wound RN consulted to assess Jong Harris [...] Unable to Measure Y *Wound Bed Open;Partial thickness;[place] Tissue Exposed None Odor None *Exudate Amount Scant Drainage Description Serous Gauri-wound Assessment Edema;Dry *Primary Dressing Gelling fiber/Hydrofiber *Primary Dressing Frequency of Change Daily & PRN *Secondary Dressing Gauze;Compression wrap *Secondary Dressing Frequency of Change Daily & PRN Changed by Unit based nurse Complications none Ongoing management Nursing;Wound/licensed veterinary techniciandocument management technician done by WOC RN? Yes Focused assessment [...] nursing. They agree to the plan. The [facility] RN will continue to see the patient, [...] CABG x1, PVI, and DAHIANA amputation (19-SEP-2023, [place]). 3. Normal left ventricular chamber size, calculated [...] - Commence Prednisone 20mg QD - Continue COMPUTER INFORMATION SYSTEMS PROFESSOR Aspirin 81mg QD - Continue Warfarin - Continue Colchicine 0.3mg QD - Continue Metoprolol Succinate 50mg QD Chronic Problems: #T2DM c/b peripheral neuropathy - Holding COMPUTER INFORMATION SYSTEMS PROFESSOR Glipizide - Moderate CS Insulin #Paroxyasmal AF - Continue COMPUTER INFORMATION SYSTEMS PROFESSOR Warfarin #BPH - Continue COMPUTER INFORMATION SYSTEMS PROFESSOR Tamsulosin + Finasteride #CKD IIIB #Stroke #HTN [...] of breath and leg swelling. [facility] & Physical for [...] follow up. Fanny Goodwin M.D., M.S. 07/24/24 [phone] documented in this encounter Consult Notes * [...] Thank you for the consult. DCS pager [phone] will follow. Call primary service for diabetes concerns between 6:30 p.m. and 6:30 a.m. Primary service to contact community relations liaison Endocrinology fellow via hospital office machine embossograph operator for questions. * Benji Pizano M.D. - 07/25/2024 6:58 AM CDTAssociated Order(s): IP CONSULT TO CARDIOLOGY CARDIOLOGY CONSULT NOTE ED Requesting Photo Manager: Haily Campbell APRN Cardiology Collaborating RN: [...] CABG x1, PVI, and DAHIANA amputation (19-SEP-2023, [place]). 3. Normal left ventricular chamber size, calculated [...] the morning. ED Course as of 07/24/242058 [facility] Jul 24, 20241946 ECG 12 Lead 2058 [...] renal failure versus less likely ACS or DE. Also considered pleural effusion, pneumonia, or viral [...] a good candidate for observation in the [facility] with diuresis and cardiology consultation in [...] failure. Also significant CKD. His PCP at [facility] was unable to get him admitted due [...] exacerbation. IV Lasix, cardiology consultation. 07/25 H&P ([facility]) - 74 y/o male admit for constrictive [...] May. ED Course Mr Harris presented to [place] ED on 07/24/24 with complaints of progressive [...] AM CDT Clinical Communication Virtual Review in [place], [place] 200 [place] [phone] 09/16/2024 1:00 PM MAP COMPILER Appointment Department of Radiology, [facility], in [address] [place] [address] [phone] Deven Clement M.D., M.S. [address] [place] [phone] 09/16/2024 1:20 PM MAP COMPILER Appointment Department of Laboratory Medicine and Pathology, [facility] in [address] [place] [address] [phone] Deven Clement M.D., M.S. [address] [place] [phone] 09/16/2024 1:40 PM MAP COMPILER Ancillary Procedure Department of Cardiovascular Medicine in [address] [place] [address] [phone] Deven Clement M.D., M.S. [address] [place] [phone] 09/16/2024 4:00 PM MAP COMPILER Comprehensive Visit Department of Cardiovascular Medicine in [address] [phone] Keagan Tellez M.D. [address] [place] [phone] documented as of this encounter Procedures Procedure [...] ORDERABLES-MANUAL Edit ed Result - Final [facility] [address] [place] [address], [facility] PCLX [facility] POC [address] [place] [address] * (ABNORMAL) Prothrombin Time (PT) (08/01/2024 7:41 [...] Ph.D. LAB BLOOD ADD-ON Eliana hernandez Result [facility] [address] [place] [address], [facility] DTL [facility] [address] [place] [address] * (ABNORMAL) CBC with Differential, Blood (08/01/2024 [...] ADD-ON Eliana l Result Performing Organization Address [facility]/ZIP Co de Phone Number [facility] [address] [place] [address], [facility] DTL [facility] [address] [place], [place] [phone] [place] [address] 200 [place] [address] * (ABNORMAL) Cystatin C with Estimated GFR (08/01/2024 7:40 AM CDT) Pathologist [facility] eGFR by Cystatin C 17(L) >60 mL/min/BSA [...] ADD-ON Final Res ult Performing Organization Address City/[facility]/ZIP Co de Phone Number [facility] [address] [place] [address], [facility] DTL [facility] 200 [place] [address] * (ABNORMAL) Renal Function Panel (08/01/2024 7:40 [...] Clement M.D., M.S. LAB BLOOD ADD-ON Eliana david Result [facility] 200 [place], [place] [address] DTL [facility] 200 [place] [address] * (ABNORMAL) Glucose, POCT (08/01/2024 6:36 AM CDT) Glucose, POCT, B 144(H) 70 - 140 mg/dL 08/01/2024 6:39 AM CDT PCLX Last Intake > 4 hours 08/01/2024 6:39 AM CDT [facility] Blood 08/01/2024 6:36 AM CDT 08/01/2024 6:39 AM CDT us Unknown Provider LAB POCT ORDERABLES-MANUAL Eliana l Result Performing Organization Address City/[facility]/ZIP Co de Phone Number [facility] [address] [place] [address], [facility] POC 200 [place] [address] * (ABNORMAL) Glucose, POCT (07/31/2024 9:52 PM CDT) Glucose, POCT, B 284(H) 70 - 140 mg/dL 07/31/2024 10:05 PM CDT [facility] Last Intake 1-2 hours 07/31/2024 10:05 PM CDT [facility] Blood 07/31/2024 9:52 PM CDT 07/31/2024 10:05 PM CDT us Unknown Provider LAB POCT ORDERABLES-MANUAL Eliana l Result [facility] [address] [place] [address], [facility] POC 200 [place] [address] * Glucose, POCT (07/31/2024 5:25 PM CDT) Glucose, POCT, B 110 70 - 140 mg/dL 07/31/2024 5:27 PM CDT [facility] Site Capillary 07/31/2024 5:27 PM CDT [facility] Last Intake 3-4 hours 07/31/2024 5:27 PM CDT [facility] Blood 07/31/2024 5:25 PM CDT 07/31/2024 5:27 PM CDT us Unknown Provider LAB POCT ORDERABLES-MANUAL Eliana l Result Performing Organization Address [facility]/ZIP Co de Phone Number [facility] [address] [place] [address], [facility] POC [address] [place] [address] * (ABNORMAL) Glucose, POCT (07/31/2024 12:09 PM CDT) Glucose, POCT, B 243(H) 70 - 140 mg/dL 07/31/2024 12:11 PM CDT [facility] Blood 07/31/2024 12:0 9 PM CDT 07/31/2024 12:11 PM CDT us Unknown Provider LAB POCT ORDERABLES-MANUAL Eliana l Result Performing Organization Address [facility] de Phone Number [facility] [address] [place] [address], [facility] POC [address] [place] [address] * Dipstick, Urine (07/31/2024 11:33 AM CDT) [...] ORDERABLES Eliana l Result Performing Organization Address City/[facility]/ZIP Co de Phone Number [facility] [address] [place], [place] [phone] [place] [address] 200 [place] [address] * pH, Urine (07/31/2024 11:33 AM CDT) pH, U 6.3 4.5 - 8.0 07/31/2024 12: 53 PM CDT DTL Urine 07/31/2024 11:3 3 AM CDT 07/31/2024 12:11 PM CDT Chelsea Izaguirre M.D. LAB URINE ORDERABLES Eliana l Result Performing Organization Address [facility] Co de Phone Number [facility] [address] [place], [place] [phone] [place] [address] * Microscopic Automated (07/31/2024 11:33 AM CDT) [...] ORDERABLES Eliana l Result Performing Organization Address [facility] Co de Phone Number [facility] [address] [place], [place] [phone] [place] [address] 200 [place] [address] * Osmolality, Urine (07/31/2024 11:33 AM CDT) Osmolality, U 358 150 - 1150 mOsm/kg 07/31/2024 12:53 PM CDT DTL Urine 07/31/2024 11:3 3 AM CDT 07/31/2024 12:11 PM CDT us Chelsea Izaguirre M.D. LAB URINE ORDERABLES Eliana l Result Performing Organization Address City/[facility]/ZIP Co de Phone Number [facility] [address] [place], [place] [phone] [place] [address] [facility] [address] [place] [address] * (ABNORMAL) Urinalysis, with Microscopic: Urine, Midstream [...] M.D., M.S. LAB URINE ORDERABLES Final Result Performing Organization Address [facility]/ZIP Co de Phone Number [facility] [address] [place] [address], [facility] DTL [facility] [address] [place] [address] * US Kidneys Bilateral with Bladder (07/31/2024 [...] ADD-ON Eliana l Result Performing Organization Address [facility] de Phone Number [facility] [address] 200 [place] [address] * (ABNORMAL) Magnesium (07/31/2024 7:43 AM CDT) Magnesium, S 2.5(H) 1.7 - 2.3 mg/dL 07/31/2024 10:14 AM CDT DTL Blood (Blood, Venous) 07/31/2024 7:43 AM CDT 07/31/2024 9:25 AM CDT Deven Clement M.D., M.S. LAB BLOOD ADD-ON Eliana l Result Performing Organization Address [facility] de Phone Number [facility] [address] 200 [place] [address] * (ABNORMAL) Basic Metabolic Panel (07/31/2024 7:43 [...] M.S. LAB BLOOD ADD-[place] [address], [facility] [place] [address] * (ABNORMAL) CBC with Differential, Blood (07/31/2024 [...] 7:43 AM CDT 07/31/2024 8:25 AM CDT us Deven Clement M.D., M.S. LAB BLOOD ADD-ON Eliana l Result [facility] [address] [place] [address], [facility] DTL [facility] [address] [place] [address] DHPM [facility] [address] [place] [address] * Glucose, POCT (07/31/2024 6:11 AM CDT) [facility] Glucose, POCT, B 104 70 - 140 mg/dL 07/31/2024 6:15 AM CDT PCLX Last Intake 3-4 hours 07/31/2024 6:15 AM CDT P[facility] Blood 07/31/2024 6:11 AM CDT 07/31/2024 6:15 AM CDT us Unknown Provider LAB POCT ORDERABLES-MANUAL Eliana l Result Performing Organization Address City/[facility]/ZIP Co de Phone Number [facility] [address] [place] [address], [facility] POC [address] [place] [address] * Glucose, POCT (07/30/2024 9:30 PM CDT) Glucose, POCT, B 138 70 - 140 mg/dL 07/30/2024 9:36 PM CDT PCL[facility] Site Capillary 07/30/2024 9:36 PM CDT PCLX Last Intake > 4 hours 07/30/2024 9:36 PM CDT [facility] Blood 07/30/2024 9:30 PM CDT 07/30/2024 9:36 PM CDT us Unknown Provider LAB POCT ORDERABLES-MANUAL Eliana l Result Performing Organization Address [facility]/ZIP Co de Phone Number [facility] [address] [place] [address], [place] [facility] POC [address] [place] [address] * Glucose, POCT (07/30/2024 5:00 PM CDT) Glucose, POCT, B 118 70 - 140 mg/dL 07/30/2024 5:14 PM CDT PCLX Site Capillary 07/30/2024 5:14 PM CDT PCLX Last Intake > 4 hours 07/30/2024 5:14 PM CDT PCLX Blood 07/30/2024 5:00 PM CDT 07/30/2024 5:14 PM CDT us Unknown Provider LAB POCT ORDERABLES-MANUAL Eliana l Result Performing Organization Address City/[facility]/ZIP Co de Phone Number [facility] [address] [place] [address], [place] [facility] POC [address] [place] [address] * (ABNORMAL) Glucose, POCT (07/30/2024 12:06 PM CDT) Glucose, POCT, B 259(H) 70 - 140 mg/dL 07/30/2024 12:12 PM CDT PCLX Site Capillary 07/30/2024 12:12 PM CDT PCLX Last Intake 3-4 hours 07/30/2024 12:12 PM CDT PCL[facility] Blood 07/30/2024 12:0 6 PM CDT 07/30/2024 12:12 PM CDT Unknown Provider LAB POCT ORDERABLES-MANUAL Edit ed Result - Final Performing Organization Address [facility] Co de Phone Number [facility] [address] [place] [address], [facility] PCLX [facility] [address] [place] [address] * (ABNORMAL) Prothrombin Time (PT) (07/30/2024 8:03 [...] ADD-ON Eliana l Result Performing Organization Address [facility]/ZIP Co de Phone Number [facility] [address] [place] [address], [facility] DTL [facility] [address] [place] [address] * (ABNORMAL) Basic Metabolic Panel (07/30/2024 8:03 [...] Ph.D. LAB BLOOD ADD-ON Eliana david Result [facility] [address] [place] [address], [facility] [address] [place] [address] * (ABNORMAL) CBC with Differential, Blood (07/30/2024 [...] - 6.45 x10(9)/L 07/30/2024 9:02 AM CDT [facility] Lymphocytes 1.28 0.95 - 3.07 x10(9)/L 07/30/2024 [...] Ph.D. LAB BLOOD ADD-ON Eliana l Result [facility] [address] [place] [address], [place] DTL [facility] [address] [place] [address] [facility] [address] [place] [address] * Glucose, POCT (07/30/2024 7:45 AM CDT) [facility] Glucose, POCT, B 105 70 - 140 mg/dL 07/30/2024 7:47 AM CDT P[facility] Site Capillary 07/30/2024 7:47 AM CDT PCLX Last Intake > 4 hours 07/30/2024 7:47 AM CDT [facility] Blood 07/30/2024 7:45 AM CDT 07/30/2024 7:47 AM CDT us Unknown Provider LAB POCT ORDERABLES-MANUAL Eliana l Result Performing Organization Address [facility] Co de Phone Number [facility] [address] [place] [address], [facility]X [facility] POC [address] [place] [address] * (ABNORMAL) Glucose, POCT (07/29/2024 9:32 PM CDT) Glucose, POCT, B 235(H) 70 - 140 mg/dL 07/29/2024 9:35 PM CDT PCLX Site Capillary 07/29/2024 9:35 PM CDT PCLX Last Intake 3-4 hours 07/29/2024 9:35 PM CDT PCLX Blood 07/29/2024 9:32 PM CDT 07/29/2024 9:35 PM CDT us Unknown Provider LAB POCT ORDERABLES-MANUAL Eliana l Result Performing Organization Address [facility] de Phone Number [facility] [address] [place] [address], [facility] P[facility] [address] [place] [address] * (ABNORMAL) Glucose, POCT (07/29/2024 4:46 PM CDT) Glucose, POCT, B 239(H) 70 - 140 mg/dL 07/29/2024 4:49 PM CDT PCLX Site Capillary 07/29/2024 4:49 PM CDT PCLX Last Intake > 4 hours 07/29/2024 4:49 PM CDT PCLX Blood 07/29/2024 4:46 PM CDT 07/29/2024 4:49 PM CDT us Unknown Provider LAB POCT ORDERABLES-MANUAL Eliana l Result Performing Organization Address City/[facility]/ZIP Co de Phone Number [facility] [address] [place] [address], [facility] P[facility] [address] [place] [address] * (ABNORMAL) Glucose, POCT (07/29/2024 11:30 AM CDT) Glucose, POCT, B 194(H) 70 - 140 mg/dL 07/29/2024 11:34 AM CDT PCLX Site Capillary 07/29/2024 11:34 AM CDT PCLX Last Intake 2-3 hours 07/29/2024 11:34 AM CDT PCLX Blood 07/29/2024 11:3 0 AM CDT 07/29/2024 11:34 AM CDT us Unknown Provider LAB POCT ORDERABLES-MANUAL Eliana l Result Performing Organization Address City/[facility] Co de Phone Number [facility] [address] [place] [address], [facility] POC [address] [place] [address] * Glucose, POCT (07/29/2024 7:39 AM CDT) Glucose, POCT, B 106 70 - 140 mg/dL 07/29/2024 7:44 AM CDT PCLX Blood 07/29/2024 7:39 AM CDT 07/29/2024 7:44 AM CDT us Unknown Provider LAB POCT ORDERABLES-MANUAL Eliana l Result Performing Organization Address City/[facility]/ZIP Co de Phone Number [facility] [address] [place] [address], [facility] P[facility] [address] [place] [address] * (ABNORMAL) Prothrombin Time (PT) (07/29/2024 7:38 [...] Gomez M.D. LAB BLOOD ADD-ON Final Result [facility] [address] [place] [address], [facility] [address] [place] [address] * (ABNORMAL) Basic Metabolic Panel (07/29/2024 7:38 AM CDT) Pathologist [facility] Potassium, S 3.9 3.6 - 5.2 mmol/L [...] Ph.D. LAB BLOOD ADD-ON Eliana l Result [facility] [address] [place] [address], [facility] [address] [place] [address] * (ABNORMAL) CBC with Differential, Blood (07/29/2024 [...] ADD-ON Eliana l Result Performing Organization Address City/[facility]/ZIP Co de Phone Number [facility] [address] [place], [place] [id number] [place] [address] [facility] [address] [place], [place] [id number] [place] [address] [address] [place] [address] * Magnesium (07/29/2024 7:38 AM CDT) Pathologist [facility] Magnesium, S 2.2 1.7 - 2.3 mg/dL 07/29/2024 9:20 AM CDT DTL Blood (Blood, Venous) 07/29/2024 7:38 AM CDT 07/29/2024 8:54 AM CDT Yasmine Garduno M.D., Ph.D. LAB BLOOD ADD-ON Eliana l Result [facility] [address] [place], [place] [address] [address] [place] [address] * (ABNORMAL) Hemoglobin A1c (07/29/2024 7:34 AM [...] BLOOD ADD-ON Final Result Performing Organization Address [facility] Co de Phone Number [facility] [address] [place] [address], [facility] DTL [facility] [address] [place] [address] * (ABNORMAL) Glucose, POCT (07/28/2024 8:23 PM CDT) Glucose, POCT, B 271(H) 70 - 140 mg/dL 07/28/2024 8:40 PM CDT PCLX Site Capillary 07/28/2024 8:40 PM CDT PCLX Last Intake 3-4 hours 07/28/2024 8:40 PM CDT PCLX Blood 07/28/2024 8:23 PM CDT 07/28/2024 8:41 PM CDT Unknown Provider LAB POCT ORDERABLES-MANUAL Eliana l Result Performing Organization Address [facility] de Phone Number [facility] [address] [place] [address], [facility] [address] [place] [address] * (ABNORMAL) Glucose, POCT (07/28/2024 5:35 PM CDT) Glucose, POCT, B 187(H) 70 - 140 mg/dL 07/28/2024 5:37 PM CDT PCLX Site Capillary 07/28/2024 5:37 PM CDT PCLX Last Intake > 4 hours 07/28/2024 5:37 PM CDT PCLX Blood 07/28/2024 5:35 PM CDT 07/28/2024 5:38 PM CDT us Unknown Provider LAB POCT ORDERABLES-MANUAL Eliana l Result Performing Organization Address City/[facility]/ZIP Co de Phone Number [facility] [address] [place] [address], [facility] [address] [place] [address] * (ABNORMAL) Glucose, POCT (07/28/2024 12:00 PM CDT) Pathologist [facility] Glucose, POCT, B 148(H) 70 - 140 mg/dL 07/28/2024 12:03 PM CDT PCLX Site Capillary 07/28/2024 12:03 PM CDT PCLX Blood 07/28/2024 12:0 0 PM CDT 07/28/2024 12:03 PM CDT us Unknown Provider LAB POCT ORDERABLES-MANUAL Eliana l Result Performing Organization Address [facility] de Phone Number [facility] [address] [place] [address], [facility] [address] [place] [address] * (ABNORMAL) Basic Metabolic Panel (07/28/2024 9:57 AM CDT) Pathologist [facility] Potassium, S 3.7 3.6 - 5.2 mmol/L [...] Ph.D. LAB BLOOD ADD-ON Eliana hernandez Result [facility] [address] [place] [address], [facility] [address] [address] * (ABNORMAL) CBC with Differential, Blood (07/28/2024 [...] ADD-ON Eliana l Result Performing Organization Address City/[facility]/ZIP Co de Phone Number [facility] [address] [facility] [address] [place], [place] [id number] [place] [address] [address] [place] [address] * Magnesium (07/28/2024 9:57 AM CDT) [facility] Magnesium, S 2.1 1.7 - 2.3 mg/dL 07/28/2024 11:17 AM CDT DTL Blood (Blood, Venous) 07/28/2024 9:57 AM CDT 07/28/2024 10:29 AM CDT Yasmine Garduno M.D., Ph.D. LAB BLOOD ADD-ON Eliana l Result [facility] [address] [place] [address] * (ABNORMAL) Prothrombin Time (PT) (07/28/2024 9:56 [...] BLOOD ADD-ON Final Result Performing Organization Address City/[facility]/ZIP Co de Phone Number [facility] [address] [place] [address], [facility] [address] [place] [address] * (ABNORMAL) Glucose, POCT (07/28/2024 8:52 AM CDT) Glucose, POCT, B 190(H) 70 - 140 mg/dL 07/28/2024 8:54 AM CDT PCLX Site Capillary 07/28/2024 8:54 AM CDT PCLX Last Intake 1-2 hours 07/28/2024 8:54 AM CDT PCLX Blood 07/28/2024 8:52 AM CDT 07/28/2024 8:54 AM CDT us Unknown Provider LAB POCT ORDERABLES-MANUAL Edit ed Result - Final Performing Organization Address City/[facility]/ZIP Co de Phone Number [facility] [address] [place] [address], [facility] PCLX [facility] [address] [place] [address] * Glucose, POCT (07/28/2024 7:57 AM CDT) Glucose, POCT, B 81 70 - 140 mg/dL 07/28/2024 8:04 AM CDT PCLX Site Capillary 07/28/2024 8:04 AM CDT PCLX Blood 07/28/2024 7:57 AM CDT 07/28/2024 8:04 AM CDT us Unknown Provider LAB POCT ORDERABLES-MANUAL Eliana l Result [facility] [address] [place] [address], [facility] PCLX [facility] POC [address] [place] [address] * (ABNORMAL) Basic Metabolic Panel (07/27/2024 11:09 [...] 11:09 PM CDT 07/27/2024 11:36 PM CDT us Yasmine Garduno M.D., Ph.D. LAB BLOOD ADD-ON Eliana l Result Performing Organization Address City/[facility]/ZIP Co de Phone Number [facility] [address] [place] [address], [facility] DTL [facility] [address] [place] [address] * (ABNORMAL) Glucose, POCT (07/27/2024 9:45 PM CDT) Glucose, POCT, B 207(H) 70 - 140 mg/dL 07/27/2024 9:48 PM CDT PCLX Site Capillary 07/27/2024 9:48 PM CDT PCLX Last Intake > 4 hours 07/27/2024 9:48 PM CDT PCLX Blood 07/27/2024 9:45 PM CDT 07/27/2024 9:48 PM CDT us Unknown Provider LAB POCT ORDERABLES-MANUAL Eliana l Result Performing Organization Address City/[facility]/ZIP Co de Phone Number [facility] [address] [place] [address], [facility] [address] [place] [address] * (ABNORMAL) Glucose, POCT (07/27/2024 4:27 PM CDT) Glucose, POCT, B 176(H) 70 - 140 mg/dL 07/27/2024 4:32 PM CDT PCLX Site Capillary 07/27/2024 4:32 PM CDT PCLX Blood 07/27/2024 4:2 7 PM CDT 07/27/2024 4:32 PM CDT us Unknown Provider LAB POCT ORDERABLES-MANUAL Eliana l Result Performing Organization Address City/[facility]/ZIP Co de Phone Number [facility] [address] [place] [address], [facility] [address] [place] [address] * (ABNORMAL) Cystatin C with Estimated GFR [...] ADD-ON Eliana l Result Performing Organization Address City/[facility]/ZIP Co de Phone Number [facility] [address] [place] [address], [facility] [address] [place] [address] * (ABNORMAL) Glucose, POCT (07/27/2024 11:13 AM CDT) Glucose, POCT, B 244(H) 70 - 140 mg/dL 07/27/2024 11:18 AM CDT PCLX Site Capillary 07/27/2024 11:18 AM CDT PCLX Blood 07/27/2024 11:1 3 AM CDT 07/27/2024 11:18 AM CDT us Unknown Provider LAB POCT ORDERABLES-MANUAL Eliana l Result [facility] [address] [place] [address], [facility] PCLX [facility] [address] [place] [address] * Magnesium (07/27/2024 7:42 AM CDT) Magnesium, S 2.1 1.7 - 2.3 mg/dL 07/27/2024 9:54 AM CDT DTL Blood (Blood, Venous) 07/27/2024 7:42 AM CDT 07/27/2024 8:17 AM CDT us Yasmine Garduno M.D., Ph.D. LAB BLOOD ADD-ON Eliana l Result [facility] [address] [place] [address], [facility] [address] [place] [address] * (ABNORMAL) Basic Metabolic Panel (07/27/2024 7:42 AM CDT) Potassium, S 4.0 3.6 - 5.2 mmol/L [...] Jay B.Ch. LAB BLOOD ADD-ON Final Result [facility] [address] [place] [address], [facility] DTL [facility] [address] [place] [address] * (ABNORMAL) CBC with Differential, Blood (07/27/2024 [...] AM CDT 07/27/2024 8:05 AM CDT Barbara Jay, B.Ch. LAB BLOOD ADD-ON Final Result Performing Organization Address [facility] Co de Phone Number [facility] [address] [place] [address], [facility] DTL [facility] [address] [place], [place] [id number] [place] [address] [address] [place] [address] * Glucose, POCT (07/27/2024 7:41 AM CDT) Pathologist [facility] Glucose, POCT, B 119 70 - 140 mg/dL 07/27/2024 7:49 AM CDT PCLX Site Capillary 07/27/2024 7:49 AM CDT PCLX Last Intake 1-2 hours 07/27/2024 7:49 AM CDT PCLX Blood 07/27/2024 7:41 AM CDT 07/27/2024 7:49 AM CDT Unknown Provider LAB POCT ORDERABLES-MANUAL Eliana l Result Performing Organization Address [facility] Co de Phone Number [facility] [address] [place] [address], [facility]CLX [facility] P[facility] [address] [place] [address] * (ABNORMAL) Prothrombin Time (PT) (07/27/2024 7:41 AM CDT) Pathologist [facility] Prothrombin Time, P 39.2(H) 9.4 - 12.5 sec 07/27/2024 8:56 AM CDT DTL INR 3.5 0.9 - 1.1 07/27/2024 8:56 AM CDT DTL Comment: ----ADDITIONAL INFORMATION---- Standard intensity warfarin therapeutic range: 2.0 to 3.0 ?? High intensity warfarin therapeutic range: 2.5 to 3.5 Blood (Blood, Venous) 07/27/2024 7:41 AM CDT 07/27/2024 8:04 AM CDT us Neftaly Gomez M.D. LAB BLOOD ADD-ON Final Result Performing Organization Address [facility] Co de Phone Number [facility] [address] [place] [address], [facility] DTL [facility] [address] [place] [address] * Glucose, POCT (07/27/2024 6:54 AM CDT) Glucose, POCT, B 130 70 - 140 mg/dL 07/27/2024 7:13 AM CDT PCLX Blood 07/27/2024 6:54 AM CDT 07/27/2024 7:13 AM CDT Unknown Provider LAB POCT ORDERABLES-MANUAL Eliana l Result Performing Organization Address [facility] de Phone Number [facility] [address] [place] [address], [facility]CLX [facility] P[facility] [address] [place] [address] * ECG 12 Lead (07/27/2024 5:27 AM CDT) Ventricular Rate ECG/Min 66 BPM MUSE NE Interval 136 ms MUSE QRSD Interval 76 ms MUSE QT Interval 358 ms MUSE QTC Interval 375 ms MUSE P Hitchcock 40 degrees MUSE R Hitchcock 63 degrees MUSE T Wave Hitchcock 122 degrees MUSE 07/27/2024 5:27 AM CDT [...] ECG ORDERABLES Final Result Performing Organization Address [facility] Co de Phone Number MUSE NA * (ABNORMAL) Glucose, POCT (07/26/2024 9:07 PM CDT) Glucose, POCT, B 145(H) 70 - 140 mg/dL 07/26/2024 9:09 PM CDT PCLX Last Intake 3-4 hours 07/26/2024 9:09 PM CDT PCLX Blood 07/26/2024 9:07 PM CDT 07/26/2024 9:09 PM CDT us Unknown Provider LAB POCT ORDERABLES-MANUAL Eliana l Result Performing Organization Address [facility] de Phone Number [facility] [address] [facility] [place] [address], [facility] PCLX [facility] POC [address] [place] [address] * (ABNORMAL) Glucose, POCT (07/26/2024 4:19 PM CDT) Glucose, POCT, B 177(H) 70 - 140 mg/dL 07/26/2024 4:22 PM CDT PCLX Site Capillary 07/26/2024 4:22 PM CDT PCLX Last Intake > 4 hours 07/26/2024 4:22 PM CDT PCLX Blood 07/26/2024 4:19 PM CDT 07/26/2024 4:22 PM CDT us Unknown Provider LAB POCT ORDERABLES-MANUAL Eliana l Result Performing Organization Address City/[facility]/ZIP Co de Phone Number [facility] [address] [place] [address], [facility] PCLX [facility] P[facility] [address] [place] [address] * (ABNORMAL) Glucose, POCT (07/26/2024 11:06 AM CDT) Glucose, POCT, B 364(H) 70 - 140 mg/dL 07/26/2024 11:08 AM CDT PCLX Last Intake 2-3 hours 07/26/2024 11:08 AM CDT PCLX Blood 07/26/2024 11:0 6 AM CDT 07/26/2024 11:09 AM CDT Unknown Provider LAB POCT ORDERABLES-MANUAL Eliana l Result Performing Organization Address [facility] Co de Phone Number [facility] [address] [place] [address], [facility] PCLX [facility] POC [address] [place] [address] * (ABNORMAL) Troponin T, 5th Generation (07/26/2024 8:27 AM CDT) Pathologist [facility] Troponin T, 5th gen 110(H) <=15 ng/L 07/26/2024 9:08 AM CDT [facility] Comment:Consider acute myoca rdial injury Blood (Blood, Venous) 07/26/2024 8:27 AM CDT 07/26/2024 8:32 AM CDT us Neftaly Gomez M.D. LAB BLOOD ADD-ON Final Result Performing Organization Address City/[facility]/ZIP Co de Phone Number [facility] [address] [place] [address], [place] [facility] [address] [place] [address] * Folate (07/26/2024 7:21 AM CDT) Folate, S 11.6 >=4.0 mcg/L 07/28/2024 8: 00 AM CDT DTL Blood (Blood, Venous) 07/26/2024 7:21 AM CDT 07/26/2024 8:10 AM CDT Yasmine Garduno M.D., Ph.D. LAB BLOOD ADD-ON Eliana l Result Performing Organization Address [facility] Co de Phone Number [facility] [address] [place] [address], [facility] [address] [place] [address] * (ABNORMAL) Vitamin B12 Assay (07/26/2024 7:21 [...] ADD-ON Eliana l Result Performing Organization Address [facility] de Phone Number [facility] [address] [place] [address], [facility] [address] [place] [address] * Reticulocytes (07/26/2024 7:21 AM CDT) Reticulocytes, B 1.46 0.60 - 2.71 % 07/26/2024 8:09 AM CDT DTL Absolute Reticulocyte 62.8 30.4 - 110.9 x10(9)/L 07/26/2024 8:09 AM CDT DTL Blood (Blood, Venous) 07/26/2024 7:21 AM CDT 07/26/2024 7:55 AM CDT Yasmine Garduno M.D., Ph.D. LAB BLOOD ADD-ON Eliana l Result [facility] [address] [place] [address], [facility] [address] [place] [address] * (ABNORMAL) Haptoglobin (07/26/2024 7:21 AM CDT) Haptoglobin, S <14(L) 30 - 200 mg/dL 07/29/2024 8:[address] [facility] Blood (Blood, Venous) 07/26/2024 7:21 AM CDT 07/28/2024 6:34 AM CDT Yasmine Garduno M.D., Ph.D. LAB BLOOD ADD-ON Eliana l Result Performing Organization Address City/[facility]/ZIP Co de Phone Number [facility] [address] [place] [address] [facility] [address] [place] [address] * Fibrinogen (07/26/2024 7:21 AM CDT) Fibrinogen, P 385 200 - 393 mg/dL 07/26/2024 8:23 AM CDT [facility] Blood (Blood, Venous) 07/26/2024 7:21 AM CDT 07/26/2024 7:56 AM CDT Yasmine Garduno M.D., Ph.D. LAB BLOOD ADD-ON Eliana l Result [facility] [address] [place] [address], [place] [facility] [address] [place] [address] * Ferritin (07/26/2024 7:21 AM CDT) Ferritin, S 179 31 - 409 mcg/L 07/26/2024 8:46 AM CDT DTL Blood (Blood, Venous) 07/26/2024 7:21 AM CDT 07/26/2024 8:10 AM CDT us Yasmine Garduno M.D., Ph.D. LAB BLOOD ADD-ON Eliana l Result Performing Organization Address [facility] Co de Phone Number [facility] [address] [facility] [address] [place] [address] * Iron and Total Iron-Binding Capacity (07/26/2024 7:21 AM CDT) Pathologist [facility] Iron 53 50 - 150 mcg/dL 07/26/2024 8:46 AM CDT DTL Total Iron Binding Capacity 270 250 - 400 mcg/dL 07/26/2024 8:46 AM CDT DTL Percent Saturation 20 14 - 50 % 07/26/2024 8:46 AM CDT DTL Blood (Blood, Venous) 07/26/2024 7:21 AM CDT 07/26/2024 8:10 AM CDT Yasmine Garduno M.D., Ph.D. LAB BLOOD ADD-ON Eliana l Result Performing Organization Address [facility] Co de Phone Number [facility] [address] [facility] [address] [place] [address] * (ABNORMAL) Morphology Eval (special smear) (07/26/2024 7:21 AM CDT) Pathologist [facility] Neutrophilic Segs and Bands 85(H) 50 - [...] Ph.D. LAB BLOOD ADD-ON Eliana l Result [facility] [address] [place] [address], [facility] [address] [place] [address] * (ABNORMAL) Basic Metabolic Panel (07/26/2024 7:21 AM CDT) Pathologist [facility] Potassium, S 4.1 3.6 - 5.2 mmol/L [...] Gomez M.D. LAB BLOOD ADD-ON Final Result [facility] [address] [place] [address], [facility] DTL [facility] [address] [place] [address] * (ABNORMAL) CBC with Differential, Blood (07/26/2024 [...] BLOOD ADD-ON Final Result Performing Organization Address City/[facility]/ZIP Co de Phone Number [facility] [address] [place], [place] [id number] [place] [address] [facility] [address] [place], [place] [address] [place] [address] [address] [place] [address] * (ABNORMAL) Prothrombin Time (PT) (07/26/2024 7:21 AM CDT) Prothrombin Time, P 30.2(H) 9.4 - 12.5 [...] BLOOD ADD-ON Final Result Performing Organization Address City/[facility]/ZIP Co de Phone Number [facility] [address] [place], [place] [address] [address] [place] [address] * (ABNORMAL) Glucose, POCT (07/26/2024 7:20 AM CDT) Glucose, POCT, B 163(H) 70 - 140 mg/dL 07/26/2024 7:22 AM CDT PCLX Site Capillary 07/26/2024 7:22 AM CDT PCLX Last Intake 2-3 hours 07/26/2024 7:22 AM CDT PCLX Blood 07/26/2024 7:20 AM CDT 07/26/2024 7:22 AM CDT us Unknown Provider LAB POCT ORDERABLES-MANUAL Eliana l Result Performing Organization Address City/[facility]/ZIP Co de Phone Number [facility] [address] [place] [address], [facility] PCLX [facility] P[facility] [address] [place] [address] * Glucose, POCT (07/25/2024 8:34 PM CDT) Glucose, POCT, B 121 70 - 140 mg/dL 07/25/2024 8:37 PM CDT PCLX Last Intake 2-3 hours 07/25/2024 8:37 PM CDT PCLX Blood 07/25/2024 8:34 PM CDT 07/25/2024 8:37 PM CDT us Unknown Provider LAB POCT ORDERABLES-MANUAL Eliana l Result Performing Organization Address City/[facility]/ZIP Co de Phone Number [facility] [address] [place] [address], [facility] PCLX [facility] POC [address] [place] [address] * (ABNORMAL) Troponin T, 6h, 5th Gen (07/25/2024 7:26 PM CDT) Pathologist [facility] Troponin T, 6 hr, 5th gen 106(H) [...] [place] Final Result Performing Organization Address [facility]/ZIP Co de Phone Number [facility] [address] [place] [address], [facility] STMA [facility] [address] [place] [address] * (ABNORMAL) Glucose, POCT (07/25/2024 4:25 PM CDT) Glucose, POCT, B 174(H) 70 - 140 mg/dL 07/25/2024 4:30 PM CDT PCLX Site Capillary 07/25/2024 4:30 PM CDT PCLX Blood 07/25/2024 4:25 PM CDT 07/25/2024 4:30 PM CDT us Unknown Provider LAB POCT ORDERABLES-MANUAL Eliana l Result Performing Organization Address [facility] Co de Phone Number [facility] [address] [place] [address], [facility] PCLX [facility] P[facility] [address] [place] [address] * (ABNORMAL) Troponin T, 2 Hour with 6 Hour Reflex, 5th Gen (07/25/2024 3:42 PM CDT) Troponin T, 2 hr, 5th gen 131(H) <=15 ng/L 07/25/2024 4:11 PM CDT [facility] Comment:Consider acute myoca rdial injury 2H Delta % 9 % 07/25/2024 4:11 PM CDT [facility] Comment:6 hour collection pe nding. 2H Delta Interp Not Changing 07/25/2024 4:11 PM CDT [facility] Blood 07/25/2024 3:42 PM CDT 07/25/2024 3:47 PM CDT us Barbara Jay B.Ch. LAB BLOOD [place] Final Result [facility] [address] [place] [address], [facility] [address] [place] [address] * (TTE) 2D ECHO DOPPLER COLOR (07/25/2024 [...] CABG x1, PVI, and DAHIANA amputation (19-SEP-2023, [facility]). 3. Small left ventricular chamber size. Abnormal [...] CABG x1, PVI, and DAHIANA amputation (19-SEP-2023, [facility]). Echocardiogram performed per left ventricular function protocol [...] prosthesis, CABG x1,PVI, and DAHIANA amputation (19-SEP-2023, [facility]). 3. Small left ventricular chamber size. Abnormal [...] prosthesis, CABG x1, PVI,and DAHIANA amputation (19-SEP-2023, Ducor). Echocardiogram performed per leftventricular function protocol + [...] - 12.5 sec 07/25/2024 2:39 PM CDT [facility] INR 2.9 0.9 - 1.1 07/25/2024 2:39 PM CDT [facility] Comment: ----ADDITIONAL INFORMATION---- Standard intensity warfarin therapeutic range: 2.0 to 3.0 ?? High intensity warfarin therapeutic range: 2.5 to 3.5 Blood (Blood, Venous) 07/25/2024 2:04 PM CDT 07/25/2024 2:20 PM CDT Yasmine Garduno M.D., Ph.D. LAB BLOOD ADD-ON Eliana l Result [facility] [address] [place] [address], [facility] [address] [place] [address] * (ABNORMAL) CRP (C-Reactive Protein) (07/25/2024 1:50 PM CDT) C-Reactive Protein (CRP), S 6.1(H) <5.0 mg/L 07/25/2024 3:06 PM CDT DTL Blood (Blood, Venous) 07/25/2024 1:50 PM CDT 07/25/2024 2:44 PM CDT Neftaly Gomez M.D. LAB BLOOD ADD-ON Final Result Performing Organization Address [facility]/ZIP Co de Phone Number [facility] [address] [place] [address], [facility] [address] [place] [address] * (ABNORMAL) Troponin T, Baseline with 2 Hour/6 Hour Reflex Biomarker Panel (07/25/2024 1:50 PM CDT) Pathologist [facility] Troponin T, Baseline, 5th gen 120(H) <=15 ng/L 07/25/2024 2:22 PM CDT [facility] Comment:Consider acute myoca rdial injury Blood (Blood, Venous) 07/25/2024 1:50 PM CDT 07/25/2024 2:05 PM CDT Neftaly Gomez M.D. LAB BLOOD TROPONIN Final Result Performing Organization Address [facility] Co de Phone Number [facility] [address] [place] [address], [facility] [address] [place] [address] * Sedimentation Rate (07/25/2024 1:49 PM CDT) Pathologist [facility] Sedimentation Rate, B 13 3 - 28 mm/h 07/25/2024 4:17 PM CDT DTL Blood (Blood, Venous) 07/25/2024 1:49 PM CDT 07/25/2024 2:36 PM CDT Neftaly Gomez M.D. LAB BLOOD ADD-ON Final Result Performing Organization Address [facility] Co de Phone Number [facility] [address] [place] [address], [place] DTL [facility] [address] [place] [address] * ECG 12 Lead (07/25/2024 1:34 PM CDT) Ventricular Rate ECG/Min 74 BPM MUSE NE Interval 144 ms MUSE QRSD Interval 70 ms MUSE QT Interval 340 ms MUSE QTC Interval 377 ms MUSE P Hitchcock 51 degrees MUSE R Hitchcock 64 degrees MUSE T Wave Hitchcock 264 degrees MUSE 07/25/2024 1:34 PM CDT 07/25/2024 1:41 PM CDT Impressions MUSE - 07/25/2024 1:41 PM CDT Normal sinus rhythm Low voltage QRS Low anterior forces Nonspecific T wave abnormality When compared with ECG of 24-Jul-2024 17:08, No significant change was found Reviewed by MARIELA Chopra Narrative Procedure Note oJe Kumar Jr., M.D. - 07/25/2024 IMPRESSION: Normal sinus rhythm Low voltage QRS Low anterior forces Nonspecific T wave abnormality When compared with ECG of 24-Jul-2024 17:08, No significant change was found Reviewed by MARIELA Chopra us Neftaly Gomez M.D. ECG ORDERABLES Final Result Performing Organization Address [facility] Co de Phone Number MUSE NA [...] M.S. LAB BLOOD ADD-ON Fin al Result [address] [address], [facility] [place] [place] [address] * (ABNORMAL) Basic Metabolic Panel (07/24/2024 11:51 [...] 11:51 PM CDT 07/25/2024 12:03 AM CDT us Fanny Goodwin M.D., M.S. LAB BLOOD ADD-ON Fin al Result Performing Organization Address [facility] Co de Phone Number [facility] [address] DTL [facility] [address] [place] [address] * (ABNORMAL) Troponin T, 6h, 5th Gen (07/24/2024 11:51 PM CDT) Troponin T, 6 hr, 5th gen 110(H) <=15 ng/L 07/25/2024 12:38 AM CDT [facility] Comment:Consider acute myoca rdial injury 6H Delta % 1 % 07/25/2024 12:38 AM CDT [facility] 6H Delta Interp Not Changing 07/25/2024 12:38 AM CDT [facility] Blood 07/24/2024 11:5 1 PM CDT 07/24/2024 11:56 PM CDT us Quin Smith P.A.-C., M.S. LAB BLOOD TROPONI N Final Result Performing Organization Address City/[facility]/ZIP Co de Phone Number [facility] [address] [place] [address] * (ABNORMAL) Troponin T, 2 Hour with [...] M.S. LAB BLOOD TROPONI N Final Result [facility] [address] [place] [address], [facility] [address] [place] [address] * DX Chest AP or PA and [...] M.S. LAB BLOOD ADD-ON Fin al Result [facility] [address] [place] [address], [facility] [address] [place] [address] * (ABNORMAL) Troponin T, Baseline with 2 Hour/6 Hour Reflex Biomarker Panel (07/24/2024 5:20 PM CDT) Troponin T, Baseline, 5th gen 109(H) <=15 ng/L 07/24/2024 5:55 PM CDT [facility] Comment:Consider acute myoca rdial injury Blood (Blood, Venous) 07/24/2024 5:20 PM CDT 07/24/2024 5:30 PM CDT Fanny Goodwin M.D., M.S. LAB BLOOD TROPONIN F inal Result [facility] [address] [place], [place] [address] [place] [address] [address] [place] [address] * (ABNORMAL) NT-Pro B-Type Natriuretic Peptide (BNP) (07/24/2024 5:20 PM CDT) Pathologist [facility] NT-Pro BNP 4826(H) <=540 pg/mL 07/24/2024 5:55 PM CDT [facility] Comment: NT-proBNP values less than 300 pg/mL [...] M.S. LAB BLOOD ADD-ON Fin al Result [facility] [address] [place], [place] [address] [place] [address] [address] [place] [address] * (ABNORMAL) CBC with Differential, Blood (07/24/2024 5:20 PM CDT) Pathologist [facility] Hemoglobin 12.1(L) 13.2 - 16.6 g/dL 07/24/2024 5:33 PM CDT [facility] Hematocrit 38.0(L) 38.3 - 48.6 % 07/24/2024 5:33 PM CDT [facility] Erythrocytes 4.12(L) 4.35 - 5.65 x10(12)/L 07/24/2024 [...] M.S. LAB BLOOD ADD-ON Fin al Result [facility] [address] [place] [address], [facility] STMA [facility] [address] [place] [address] [facility] [address] [place] [address] * (ABNORMAL) Basic Metabolic Panel (07/24/2024 5:20 [...] M.S. LAB BLOOD ADD-ON Fin al Result [facility] [address] [place] [address], [facility] [address] [place] [address] * ECG 12 Lead (07/24/2024 5:08 PM CDT) Ventricular Rate ECG/Min 73 BPM MUSE NE Interval 136 ms MUSE QRSD Interval 76 ms MUSE QT Interval 414 ms MUSE QTC Interval 456 ms MUSE P Hitchcock 44 degrees MUSE R Hitchcock 50 degrees MUSE T Wave Hitchcock 87 degrees MUSE 07/24/2024 5:08 PM CDT [...] mL/hr, Administer over 60 Minutes, Once, On Sun07/26/24 at 1630, For 1 dose, Adults: Doses [...] mL/hr, Administer over 60 Minutes, Once, On [place] 07/27/24 at 1745, For 1 dose, Adults: [...] or split tablet. May crush using the [employer] system. Given 07/27/2024 4:49 PM CDT 1 [...] 0859 (Given - Provider: Sally Shafer R.N.) atorvastatin tablet 80 mg (Lipitor) 80 mg, oral, Daily at bedtime, First dose on [place] 07/24/24 at 2117 2124 (Given - Provider: Alexandra Jackson R.N.) 1958 (Given - Provider: Terra Welch R.N., [facility]) colchicine tablet 0.6 mg (Colcrys) 0.6 mg, [...] unit per __ grams of carbohydrates): 10 951 (Given - Provider: Shameka Tanner R.N.)1309 (Given - Provider: Kelsie Saez R.N.)1809 (Given - Provider: Alexandra Jackson R.N.) 0841 (Given - Provider: Kelsie Saez R.N.)1245 (Given - Provider: Kelsie Saez R.N.)1821 (Given - Provider: Kelsie Saez R.N.) 0902 (Given - Provider: Sally Shafer R.N.)1243 (Given - Provider: Felipe JaquezN.) insulin aspart U-100 injection 0-13 Units (NovoLOG [...] Given - Provider: [facility]., [facility] - Reason: Order parameters not met)1244 (Given - Provider: Kelsie Saez R.N.)1731 (Not Given - Provider: Kelsie Saez R.N. - Reason: Order parameters not met - Comment: 110) 0643 (Given - Provider: Ter[facility] Welch R.N., [facility])1243 (Given - Provider: Sally Shafer RJarrettN.) insulin aspart U-100 injection 0-7 Units (NovoLOG FlexPen) 0-7 Units, subcutaneous, Daily at bedtime, First dose on Sun07/30/24 at 2100, Insulin Scale: Modified Bedtime Correction Scale, 220-259: 3 units, 260-299: 4 units, 300-339: 5 units, 340-379: 6 units, 380-399: 7 units, Greater than 399: Call service writing insulin orders 213 (Not Given - Provider: Alexandra Jackson R.N. - Reason: Order parameters not met) 221 (Given - Provider: Ter[facility] Welch R.N., [facility]) insulin NPH injection 10 Units (CANCELED) 10 Units, subcutaneous, 2 times daily with meals, First dose on 07/26/24 at 1700 0804 (Given - Provider: Shameka [...] 0609 (Given - Provider: Ter[facility] Welch R.N., [facility]) 0643 (Given - Provider: Trera Welch R.N., [facility]) polyethylene glycol powder packet 17 g (Miralax) [...] (Given - Provider: Terra Welch R.N., [facility]) 0859 (Not Given - Provider: Sally Shafer [...] Tanner R.N.)1317 (Given - Provider: Kelsie Saez R.N.)2123 (Given - Provider: Alexandra Jackson R.N.) 0840 (Given - Provider: Kelsie Saez R.N.)1248 (Given - Provider: Kelsie Saez R.N.)1957 (Given - Provider: Terra Welch R.N., [facility]) 0859 (Given - Provider: Sally Shafer R.N.)1332 (Given - Provider: Sally Shafer R.N.) sennosides tablet 8.6 mg (Senokot) 8.6 mg, oral, Daily at bedtime, First dose on Sun07/30/24 at 2100 2124 (Given - Provider: Alexandra Jackson R.N.) 1957 (Given - Provider: Terra Welch R.N., [facility]) sodium chloride 0.9 % injection 3 mL [...] (Not Given - Provider: Terra Welch R.N., [facility] - Reason: Contraindicated) 0903 (Given - Provider: [...] R.N.)1957 (Given - Provider: Terra Welch R.N., [facility]) 0903 (Given - Provider: Sally Shafer R.N.) [...] 1 tablet, oral, Daily, First dose on Sun08/02/24 at 0900, For 28 days, Drug Monitoring [...] (Given - Provider: Ter[facility] Welch R.N., [facility]) torsemide tablet 40 mg (Demadex) 40 mg, [...] (Jantoven) (COMPLETED) 2 mg, oral, Once, On Sun07/31/24 at [...] documented as of this encounter Care Teams Labor Custodian Relationship Specialty Start Date End Date Elsewhere, Pcp PCP - General Internal Medicine 07/28/24 documented as of this encounter
--- OUTSIDE RECORDS SUMMARY | 2024-09-06 15:54 | XMS_ITS | Encounter Summary ---
Author Organization [facility] Address [address] [place] [address] Care Team Providers Care Fitting Room Supervisor Name Role Phone Elsewhere, Pcp Primary [...] [facility] 07/25/2024 Sex and [...] AM CDT Clinical Communication Virtual Review in [place], [place] [address] [place] [phone] 09/16/2024 1:00 PM FACILITIES ENGINEERING MANAGER Appointment Department of Radiology, [facility], in [place], [place] [address] [place] [address] Deven Clement M.D., M.S. [address] [place] [phone] 09/16/2024 1:20 PM FACILITIES ENGINEERING MANAGER Appointment Department of Laboratory Medicine and Pathology, [facility] in [place], [place] [address] [place] [phone] Deven Clement M.D., M.S. [address] [place] [phone] 09/16/2024 1:40 PM FACILITIES ENGINEERING MANAGER Ancillary Procedure Department of Cardiovascular Medicine in [place], [place] [address] [place] [phone] Deven Clement M.D., M.S. [address] [place] [phone] 09/16/2024 4:00 PM FACILITIES ENGINEERING MANAGER Comprehensive Visit Department of Cardiovascular Medicine in [place], [place] [address] [place] [phone] Keagan Tellez M.D. [address] [place] [phone] documented as of this encounter Procedures Procedure [...] documented as of this encounter Care Teams Fitting Room Supervisor Relationship Specialty Start Date End Date Elsewhere, Pcp PCP - General Internal Medicine 07/28/24 documented as of this encounter
--- OUTSIDE RECORDS SUMMARY | 2024-09-06 15:54 | XMS_ITS | Encounter Summary ---
Author Organization [facility] Address [address] [place] [address] Care Team Providers Care Pop Singer Name Role Phone Elsewhere, Pcp Primary Care [...] IV Contrast Deven Clement M.D., M.S. 200 [place] [address] Phone: tel: fax: [facility] Referral ID Status Reason Start Date Expiration Date V isits Requested Visits Authorized [id number] Authorized 08/29/2024 08/29/2025 1 1 * Cardiovascular-Diagnostic [...] Transthoracic (TTE) Deven Clement M.D., M.S. 200 [place] [address] Phone: tel: fax: [facility] Referral ID Status Reason Start Date Expiration Date V isits Requested Visits Authorized [id number] Authorized 07/30/2024 07/30/2025 1 1 * Outpatient [...] 12 Lead Deven Clement M.D., M.S. [address] [place] [phone] Phone: tel: fax: [facility] Referral ID Status Reason Start Date Expiration Date V isits Requested Visits Authorized [id number] Authorized 07/30/2024 07/30/2025 1 1 * Outpatient [...] 2 Views Deven Clement M.D., M.S. [address] [place] [phone] Phone: tel: fax: [facility] Referral ID Status Reason Start Date Expiration Date V isits Requested Visits Authorized [id number] Authorized 07/30/2024 07/30/2025 1 1 * Outpatient [...] Disease (HCC) Deven Clement M.D., M.S. [address] [place] [phone] Phone: tel: fax: [place] Referral ID Status Reason Start Date Expiration Date V isits Requested Visits Authorized [id number] Authorized 07/30/2024 01/29/2026 1 1 Encounter Details Date Type Department Care Team (Late st Contact Info) Description 07/30/2024 Clinical Communication [facility] [address] [place] [phone] Barbara Valencia M.B., B.Ch. [address] [place] [phone] Social History Tobacco Use Types Packs/Day Years Used Date Smoking Tobacco: Never Smokeless Tobacco: Never Comments:Smoked recreational ly over 40 years ago - a few cigarettes once in a while. Alcohol Use Standard Drinks/Week Comments Never 0 (1 standard drink = 0.6 oz pur e alcohol) [facility] Utilities Answer Date Recorded In the past 12 months has [facility] [employer], gas, oil, or water [employer] threatened to shut off services in your [...] your living situation today? I have a [facility] place to live 07/25/2024 Sex and [...] AM CDT Clinical Communication Virtual Review in [place], [place] 200 [place] [address] 09/16/2024 1:00 PM REAL ESTATE COORDINATOR Appointment Department of Radiology, [facility], in [place], [place] [address] [place] [phone] Deven Clement M.D., M.S. [address] [place] [phone] 09/16/2024 1:20 PM REAL ESTATE COORDINATOR Appointment Department of Laboratory Medicine and Pathology, [facility] in [address] [phone] Deven Clement M.D., M.S. [address] [place] [phone] 09/16/2024 1:40 PM REAL ESTATE COORDINATOR Ancillary Procedure Department of Cardiovascular Medicine in [address] [phone] Deven Clement M.D., M.S. [address] [place] [phone] 09/16/2024 4:00 PM REAL ESTATE COORDINATOR Comprehensive Visit Department of Cardiovascular Medicine in [address] [phone] Keagan Tellez M.D. [address] [place] [phone] Scheduled Orders Name Type Priority Associated Diagnoses [...] (HCC) Expected: 08/29/2024, Expires: 10/29/2025 Thyroid Function [facility] Routine Hypertensive Heart And Chronic Kidney [...] documented as of this encounter Care Teams Pop Singer Relationship Specialty Start Date End Date Elsewhere, Pcp PCP - General Internal Medicine 07/28/24 documented as of this encounter
--- OUTSIDE RECORDS SUMMARY | 2024-09-06 15:54 | XMS_ITS | Encounter Summary ---
Author Organization [facility] Address [address] [place] [address] Care Team Providers Care Seam Stayer Name Role Phone Elsewhere, Pcp Primary Care [...] a [facility] place [facility] live 07/25/2024 Sex and [...] CDT Clinical Communication Virtual Review in [place], [place] [address] [place] [address] 09/16/2024 1:00 PM TUMBLING BARREL PAINTER Appointment Department of Radiology, [facility], in [place], [place] [address] [place] [phone] Deven Clement M.D., M.S. [address] [place] [phone] 09/16/2024 1:20 PM TUMBLING BARREL PAINTER Appointment Department of Laboratory Medicine and Pathology, [facility] in [place], [place] [address] [place] [phone] Deven Clement M.D., M.S. [address] [place] [phone] 09/16/2024 1:40 PM TUMBLING BARREL PAINTER Ancillary Procedure Department of Cardiovascular Medicine in [place], [place] [address] [place] [phone] Deven Clement M.D., M.S. [address] [place] [phone] 09/16/2024 4:00 PM TUMBLING BARREL PAINTER Comprehensive Visit Department of Cardiovascular Medicine in [place], [place] [address] [place] [phone] Keagan Tellez M.D. [address] [place] [phone] documented as of this encounter Procedures Procedure [...] documented as of this encounter Care Teams Seam Stayer Relationship Specialty Start Date End Date Elsewhere, Pcp PCP - General Internal Medicine 07/28/24 documented as of this encounter
--- OUTSIDE RECORDS SUMMARY | 2024-09-06 15:55 | XMS_ITS | Encounter Summary ---
Author Organization [facility] Address [address] [place] [address] Care Team Providers Care Solar Sales Consultant Name Role Phone Unavailable Primary Care Provider [...] drink = 0.6 oz pur e alcohol) [facility] Utilities Answer Date Recorded In the [...] [facility] live 07/25/2024 Sex [...] AM CDT Clinical Communication Virtual Review in [place], [place] [address] [place] [address] 09/16/2024 1:00 PM SENIOR CONSUMER INSIGHTS CONSULTANT Appointment Department of Radiology, [facility], in [place], [place] [address] [place] [phone] Deven Clement M.D., M.S. [address] [place] [phone] 09/16/2024 1:20 PM SENIOR CONSUMER INSIGHTS CONSULTANT Appointment Department of Laboratory Medicine and Pathology, [facility] in [place], [place] [address] [place] [phone] Deven Clement M.D., M.S. [address] [place] [phone] 09/16/2024 1:40 PM SENIOR CONSUMER INSIGHTS CONSULTANT Ancillary Procedure Department of Cardiovascular Medicine in [place], [place] [address] [place] [phone] Deven Clement M.D., M.S. [address] [place] [phone] 09/16/2024 4:00 PM SENIOR CONSUMER INSIGHTS CONSULTANT Comprehensive Visit Department of Cardiovascular Medicine in [place], [place] [address] [place] [phone] Keagan Tellez M.D. [address] [place] [phone] documented as of this encounter Procedures Procedure [...]
--- OUTSIDE RECORDS SUMMARY | 2024-09-06 15:55 | XMS_ITS | Clinical Summary ---
Author Organization [employer] [facility] Address [place], [place] [address] Care Team Providers Care Nurse Advisor Name Role Phone Kylah Crum [facility] Primary Care Provider Medications No known medications Social History Tobacco Use Types Packs/Day Years Used Date Smoking Tobacco: Never Assessed Sex and Gender Information Value Date Recorded Sex Assigned at Not on file Gender Identity Not on file Sexual Orientation Not on file Obstetrics History Last Filed Vital Signs Vital Sign Reading Time Taken Comments Blood Pressure 107/69 10/03/2023 4:23 PM POTATO PICKER Pulse 84 10/03/2023 4:23 PM POTATO PICKER Temperature 36.8 ??C (98.2 ??F) 10/03/2023 3:16 PM CS T Respiratory Rate 20 10/03/2023 3:16 PM POTATO PICKER Oxygen Saturation 98% 10/03/2023 4:23 PM POTATO PICKER Inhaled Oxygen Concentration - - Weight 90.7 kg (200 lb) 10/03/2023 3:08 PM POTATO PICKER Height 172.7 cm (5' 8) 10/03/2023 3:08 PM POTATO PICKER Body Mass Index 30.41 10/03/2023 3:08 PM POTATO PICKER Plan of Treatment Health Maintenance Due Date [...] Influenza for age 65+ 07/13/2024 Care Teams Nurse Advisor Relationship Specialty Start Date End Date Kylah Crum MBBS [address] [place] [phone] PCP - General Family Practice 10/03/23
--- OUTSIDE RECORDS SUMMARY | 2024-09-06 15:55 | XMS_ITS | Encounter Summary ---
Author Organization [facility] Address [address] [place] [address] Care Team Providers Care Kennel Staff Member Name Role Phone Kylah Crum M.D. Primary Care Provider Reason for Visit * Reason Onset Date Comments bilateral leg swelling 04/17/2024 [facility] 04/17/2024 Scanned in Encounter Details Date Type Department Care Team (Latest Contact Info) Description 04/17/2024 Clinical Communication Department of Cardiovascular Medicine in [place], [place] [address] [place] [address] Gudelia Soto M.D. [address] [place] [phone] bilateral leg swelling; [facility] (Scanned in) [...] your living situation today? I have a [facility] place to live 08/29/2023 Sex and Gender [...] Phone call returned to ANGIE Henriquez at [facility]. She had left for the day so the recep left a message with our phone number. * Telephone Encounter - Lester Phelps RJarrettN. - 04/17/2024 3:02 PM CDT Phone call returned to ANGIE Henriquez at the [facility]. Mr. Harris was in clinic for [...] Harris to see another provider at the [facility] to be assessed. Addendum: Phone call [...] AM CDT Clinical Communication Virtual Review in [place], [place] [address] [place] [address] 09/16/2024 1:00 PM BARREL BUILDER Appointment Department of Radiology, [facility], in [address] [phone] Deven Clement M.D., M.S. [address] [place] [phone] 09/16/2024 1:20 PM BARREL BUILDER Appointment Department of Laboratory Medicine and Pathology, [facility], in [place], [place] [address] [place] [phone] Deven Clement M.D., M.S. [address] [place] [phone] 09/16/2024 1:40 PM BARREL BUILDER Ancillary Procedure Department of Cardiovascular Medicine in [place], [place] [address] [place] [phone] Deven Clement M.D., M.S. [address] [place] [phone] 09/16/2024 4:00 PM BARREL BUILDER Comprehensive Visit Department of Cardiovascular Medicine in [place], [place] [address] [place] [phone] Keagan Tellez M.D. [address] [place] [phone] documented as of this encounter Visit Diagnoses Not on filedocumented in this encounter Additional Health Concerns Assessment Noted Time PHQ-9 Depression Total Score: 1 09/10/20 23 2:06 PM CDT documented as of this encounter Care Teams Kennel Staff Member Relationship Specialty Start Date End Date Kylah Crum M.D. [address] [place] [phone] PCP - General Family Medicine 09/28/23 07/24/24 documented as of this encounter
--- OUTSIDE RECORDS SUMMARY | 2024-09-06 15:55 | XMS_ITS | Encounter Summary ---
Author Organization [facility] Address [address] [place] [address] Care Team Providers Care Rn Vascular Name Role Phone Unavailable Primary Care Provider [...] drink = 0.6 oz pur e alcohol) [facility] Utilities Answer Date Recorded In [...] AM CDT Clinical Communication Virtual Review in [place], [place] [address] [place] [phone] 09/16/2024 1:00 PM BOSOM PRESSER Appointment Department of Radiology, [facility], in [place], [place] [address] [place] [phone] Deven Clement M.D., M.S. [address] [place] [phone] 09/16/2024 1:20 PM BOSOM PRESSER Appointment Department of Laboratory Medicine and Pathology, [facility] in [place], [place] [address] [place] [phone] Deven Clement M.D., M.S. [address] [place] [phone] 09/16/2024 1:40 PM BOSOM PRESSER Ancillary Procedure Department of Cardiovascular Medicine in [place], [place] [address] [place] [phone] Deven Clement M.D., M.S. [address] [place] [phone] 09/16/2024 4:00 PM BOSOM PRESSER Comprehensive Visit Department of Cardiovascular Medicine in [place], [place] [address] [place] [phone] Keagan Tellez M.D. [address] [place] [phone] documented as of this encounter Procedures Procedure [...]
--- OUTSIDE RECORDS SUMMARY | 2024-09-06 15:55 | XMS_ITS | Encounter Summary ---
Author Organization [facility] Address [address] [place] [address] Care Team Providers Care Computer Systems Administrator Name Role Phone Kylah Crum M.D. Primary Care Provider [phone] Reason for Visit * Appointment Request (Routine) - Closed Specialty Diagnoses / Procedures Referred By Sebas t Referred To Contact Nephrology and Hypertension Referral ID Status Reason Start Date Expiration Date Visits Re quested Visits Authorized [id number] Closed 04/25/2024 04/25/2025 1 1 Encounter Details Date Type Department Care Team (Latest Contact Info) Description 06/11/2024 1:30 PM CDT External Outreach Division of Nephrology and Hypertension in [place], [place] [address] [place] [phone] Atif Nance Jr., D.O. [address] [place] [phone] Hypertensive Heart And Chronic Kidney Disease Without [...] Kylah Crum M.D. SUBJECTIVE REASON FOR VISIT [place] out reach CKD Clinic Follow-up regards CKD [...] in Nephrology in 3 months here in [place] 6. Towards the above goals, we will [...] having his sugars monitored measured here in [place] and I will be available for further [...] AM CDT Clinical Communication Virtual Review in [place], [place] [address] [place] [phone] 09/16/2024 1:00 PM BILINGUAL MEDICAL ASSISTANT Appointment Department of Radiology, [facility], in [place], [place] [address] [place] [phone] Cornelet, Deven Guerrero M.D., M.S. [address] [place] [phone] 09/16/2024 1:20 PM BILINGUAL MEDICAL ASSISTANT Appointment Department of Laboratory Medicine and Pathology, [facility], in [place], [place] [address] [place] [phone] Deven Clement M.D., M.S. [address] [place] [phone] 09/16/2024 1:40 PM BILINGUAL MEDICAL ASSISTANT Ancillary Procedure Department of Cardiovascular Medicine in [place], [place] [address] [place] [phone] Deven Clement M.D., M.S. [address] [place] [phone] 09/16/2024 4:00 PM BILINGUAL MEDICAL ASSISTANT Comprehensive Visit Department of Cardiovascular Medicine in [place], [place] [address] [place] [phone] Keagan Tellez M.D. [address] [place] [phone] documented as of this encounter Visit Diagnoses [...] documented as of this encounter Care Teams Computer Systems Administrator Relationship Specialty Start Date End Date Kylah Crum M.D. [address] [place] [phone] PCP - General Family Medicine 09/28/23 07/24/24 documented as of this encounter
== END 2024-09-02 19:39 | disposition home or self-care (01) ==
LOC: AMB 09-06 15:48
PROVIDERS: PCP Internal Medicine; Visit Provider Emergency Medicine
DX: R57.9 Shock, unspecified (principal)
CPT/HCPCS: A0425; A0434